=== PATIENT | female | born 1960 | race Caucasian/White ===

== ENCOUNTER 2016-11-29 12:37 | Inpatient (IN) ==
[2016-11-29] MEDS ORDERED: 0.9 % SODIUM CHLORIDE 1,000 ML IV ONE (12:50)
--- NOTE | 2016-11-29 13:42 | Emergency Department Note ---
[id number] pain, abdominal pain, vomiting Time Seen by Provider: 11/29/16 13:29 Source: patient Mode of arrival: ambulatory Limitations: no limitations - History of Present Illness HPI Narrative: 85-year-old female states that since the last 5 days. She's been running a fever. Current temperatures. The 100.7 . Is current. Having cough with some sputum production. She states she gets some aphasia type signs or symptoms. Her throat. She has achalasia. She has some autoimmune diseases. She gets her electrolytes imbalances intermittently - Related Data Home Medications Medication Instructions Recorded Confirmed Pt Forgot Med List 06/12/15 06/12/15 Previous Rx's Medication Instructions Recorded predniSONE [Prednisone] 20 mg PO [facility] #4 tablet 05/18/16 Allergies Allergy/AdvReac Type Severity Reaction Status Date / Time Sulfa (Sulfonamide Allergy Severe Anaphylaxis Verified 11/29/16 12:46 Antibiotics) metoclopramide [From Reglan] AdvReac Mild Anxiety Verified 11/29/16 20:03 steri strips Allergy Severe Blister Uncoded 06/12/15 15:48 Review of Systems All systems ED: reviewed and negative except as stated. Constitutional: Denies: fever, chills Eyes: Denies: eye pain ENT ED: Denies: ear pain Cardiovascular: Reports: chest pain (states she gets heartburn type painfromher achalasia). Denies: palpitations Respiratory: Denies: cough Gastrointestinal: Denies: abdominal pain, vomiting Chest Pain PMH - Past Medical History Medical history: Reports: COPD, other (connective tissue diseases including Sjogren's, sarcoidosis, myasthenia gravis. achalasia) Surgical history ED: Reports: non-contributory - Social History smoking status: Former smoker Alcohol use: Reports: None Drug use: Reports: none Physical Exam - General Limitations: no limitations General appearance: alert - Head Head exam: atraumatic - Eye Eye exam: Present: normal appearance - ENT ENT exam: normal exam - Neck Neck exam: Present: normal inspection, full ROM - Chest Chest inspection: Present: normal inspection - Respiratory Respiratory exam: Present: normal lung sounds bilaterally - Cardiovascular Cardiovascular exam: Present: regular rate, normal rhythm. Absent: bradycardia , tachycardia - Abdominal Exam Abdominal exam: Present: soft. Absent: distention, tenderness - Extremities Exam Extremities exam: Present: normal inspection, full ROM - Back Exam Back exam: Present: normal inspection, full ROM - Neurological Exam Neurological exam: Present: alert, oriented X3, CN II-XII intact - Psychiatric Psychiatric exam: Present: normal affect, normal mood Course Vital Signs Temperature 100.7 F H 11/29/16 12:38 Pulse Rate 139 H 11/29/16 12:38 Respiratory Rate 20 11/29/16 12:38 Blood Pressure 120/85 11/29/16 12:38 Pulse Oximetry (%) 97 11/29/16 12:38 Temperature 102 F H 11/29/16 19:34 Pulse Rate 115 H 11/29/16 19:34 Respiratory Rate 20 11/29/16 19:34 Blood Pressure 120/85 11/29/16 19:34 Pulse Oximetry (%) 94 11/29/16 19:34 Chest Pain - MDM Narrative Medical decision making narrative: xray shows possible infiltrate elevated wbc and lactic - Lab Data Result diagrams: 11/29/16 13:55 11/29/16 13:55 Lab Results 11/29/16 11/29/16 11/29/16 Range/Units 13:55 13:55 13:55 WBC 16.1 H (4.5-11.0) K/mcL RBC 5.03 (4.00-5.20) M/mcL Hgb 14.2 (12.0-15.0) g/dL Hct 44.2 (36.0-48.0) % POC Hct 47.0 (36.0-48.0) % MCV 88.0 (80.0-100.0) fL MCH 28.2 (26.0-34.0) pg MCHC 32.0 (31.0-36.0) g/dL RDW 13.1 (11.5-14.5) % Plt Count 312 (140-440) K/mcL MPV 7.9 (7.4-10.4) fL Gran % 82.6 H (38.0-78.0) % Lymph % (Auto) 10.6 L (15.5-49.0) % Elliott % (Auto) 5.9 (1.0-9.0) % Eos % (Auto) 0.7 (0.0-7.0) % Baso % (Auto) 0.2 (0.0-2.0) % Gran # 13.3 H (1.8-8.0) K/mcL Lymph # 1.7 (1.5-4.8) K/mcL Elliott # 1.0 H (0.1-0.9) K/mcL Eos # 0.1 (0.0-0.7) K/mcL Baso # 0 (0.0-0.3) K/mcL Total Counted Seg Neutrophils % (38-78) % Band Neutrophils % (0-10) % Lymphocytes % (15-49) % Monocytes % (Manual) (1-9) % Platelet Estimate (NORMAL) RBC Morphology (NORMAL) VBG Lactic Acid (0.5-2.2) mmol/L POC Sodium 136 (133-145) mmol/L Sodium 136 (133-145) mmol/L POC Potassium 3.8 (3.3-5.1) mmol/L Potassium 3.9 (3.3-5.1) mmol/L POC Chloride 93 L (96-108) mmol/L Chloride 91 L (96-108) mmol/L Carbon Dioxide 25 (22-30) mmol/L POC Total CO2 28 (22-30) mmol/L Anion Gap 20.0 H (8-16) POC BUN 19 (6-20) mg/dl BUN 17 (6-20) mg/dl Creatinine 0.7 (0.6-1.1) mg/dl POC Creatinine 0.6 (0.6-1.1) mg/dl GFR Calculation 98 Glucose 158 H (70-105) mg/dL POC Glucose 160 H (70-105) mg/dL Calcium 7.8 L (8.6-10.4) mg/dl POC WB Ioniz Calcium 0.84 L (1.16-1.32) mmol/L Magnesium (1.6-2.5) mg/dL Total Bilirubin 0.6 (0.0-1.0) mg/dL AST 18 (0-37) U/l ALT 17 (0-40) U/l Alkaline Phosphatase 69 (39-117) U/L Total Creatine Kinase 40 (24-170) IU/L CK-MB (CK-2) < 1.0 (0-2.9) ng/ml Myoglobin 33 (25-58) ng/ml Troponin T < 0.01 (0-0.03) ng/ml Total Protein 7.4 (5.9-8.4) gm/dL Albumin 3.5 (3.2-5.2) gm/dL Globulin 3.9 H (2.2-3.7) gm/dL Albumin/Globulin Ratio 0.9 L (1.0-2.3) Urine Color Urine Appearance Urine pH (5.0-9.0) Ur Specific [place] (1.000-1.035) Urine Protein (NEG) mg/dL Urine Glucose (UA) (NEG) mg/dL Urine Ketones (NEG) mg/dL Urine Occult Blood (<0.03) mg/dL Urine Nitrate (NEG) Urine Bilirubin (NEG) mg/dL Urine Urobilinogen (NEG) mg/dL Ur Leukocyte Esterase (NEG) /uL Urine RBC (0-1) /hpf Urine WBC (0-4) /hpf Ur Squamous Epith Cells (0-4) /hpf Urine Bacteria (0) /hpf Hyaline Casts (0-2) /lpf Urine Mucus (0) /hpf Ur Culture Indicated? 11/29/16 11/29/16 11/29/16 Range/Units 13:55 13:55 13:55 WBC (4.5-11.0) K/mcL RBC (4.00-5.20) M/mcL Hgb (12.0-15.0) g/dL Hct (36.0-48.0) % POC Hct (36.0-48.0) % MCV (80.0-100.0) fL MCH (26.0-34.0) pg MCHC (31.0-36.0) g/dL RDW (11.5-14.5) % Plt Count (140-440) K/mcL MPV (7.4-10.4) fL Gran % (38.0-78.0) % Lymph % (Auto) (15.5-49.0) % Elliott % (Auto) (1.0-9.0) % Eos % (Auto) (0.0-7.0) % Baso % (Auto) (0.0-2.0) % Gran # (1.8-8.0) K/mcL Lymph # (1.5-4.8) K/mcL Elliott # (0.1-0.9) K/mcL Eos # (0.0-0.7) K/mcL Baso # (0.0-0.3) K/mcL Total Counted 100 Seg Neutrophils % 77 (38-78) % Band Neutrophils % 3 (0-10) % Lymphocytes % 15 (15-49) % Monocytes % (Manual) 5 (1-9) % Platelet Estimate Normal (NORMAL) RBC Morphology Normal (NORMAL) VBG Lactic Acid 3.2 H (0.5-2.2) mmol/L POC Sodium (133-145) mmol/L Sodium (133-145) mmol/L POC Potassium (3.3-5.1) mmol/L Potassium (3.3-5.1) mmol/L POC Chloride (96-108) mmol/L Chloride (96-108) mmol/L Carbon Dioxide (22-30) mmol/L POC Total CO2 (22-30) mmol/L Anion Gap (8-16) POC BUN (6-20) mg/dl BUN (6-20) mg/dl Creatinine (0.6-1.1) mg/dl POC Creatinine (0.6-1.1) mg/dl GFR Calculation Glucose (70-105) mg/dL POC Glucose (70-105) mg/dL Calcium (8.6-10.4) mg/dl POC WB Ioniz Calcium (1.16-1.32) mmol/L Magnesium 1.6 (1.6-2.5) mg/dL Total Bilirubin (0.0-1.0) mg/dL AST (0-37) U/l ALT (0-40) U/l Alkaline Phosphatase (39-117) U/L Total Creatine Kinase (24-170) IU/L CK-MB (CK-2) (0-2.9) ng/ml Myoglobin (25-58) ng/ml Troponin T (0-0.03) ng/ml Total Protein (5.9-8.4) gm/dL Albumin (3.2-5.2) gm/dL Globulin (2.2-3.7) gm/dL Albumin/Globulin Ratio (1.0-2.3) Urine Color Urine Appearance Urine pH (5.0-9.0) Ur Specific [place] (1.000-1.035) Urine Protein (NEG) mg/dL Urine Glucose (UA) (NEG) mg/dL Urine Ketones (NEG) mg/dL Urine Occult Blood (<0.03) mg/dL Urine Nitrate (NEG) Urine Bilirubin (NEG) mg/dL Urine Urobilinogen (NEG) mg/dL Ur Leukocyte Esterase (NEG) /uL Urine RBC (0-1) /hpf Urine WBC (0-4) /hpf Ur Squamous Epith Cells (0-4) /hpf Urine Bacteria (0) /hpf Hyaline Casts (0-2) /lpf Urine Mucus (0) /hpf Ur Culture Indicated? 11/29/16 Range/Units 14:47 WBC (4.5-11.0) K/mcL RBC (4.00-5.20) M/mcL Hgb (12.0-15.0) g/dL Hct (36.0-48.0) % POC Hct (36.0-48.0) % MCV (80.0-100.0) fL MCH (26.0-34.0) pg MCHC (31.0-36.0) g/dL RDW (11.5-14.5) % Plt Count (140-440) K/mcL MPV (7.4-10.4) fL Gran % (38.0-78.0) % Lymph % (Auto) (15.5-49.0) % Elliott % (Auto) (1.0-9.0) % Eos % (Auto) (0.0-7.0) % Baso % (Auto) (0.0-2.0) % Gran # (1.8-8.0) K/mcL Lymph # (1.5-4.8) K/mcL Elliott # (0.1-0.9) K/mcL Eos # (0.0-0.7) K/mcL Baso # (0.0-0.3) K/mcL Total Counted Seg Neutrophils % (38-78) % Band Neutrophils % (0-10) % Lymphocytes % (15-49) % Monocytes % (Manual) (1-9) % Platelet Estimate (NORMAL) RBC Morphology (NORMAL) VBG Lactic Acid (0.5-2.2) mmol/L POC Sodium (133-145) mmol/L Sodium (133-145) mmol/L POC Potassium (3.3-5.1) mmol/L Potassium (3.3-5.1) mmol/L POC Chloride (96-108) mmol/L Chloride (96-108) mmol/L Carbon Dioxide (22-30) mmol/L POC Total CO2 (22-30) mmol/L Anion Gap (8-16) POC BUN (6-20) mg/dl BUN (6-20) mg/dl Creatinine (0.6-1.1) mg/dl POC Creatinine (0.6-1.1) mg/dl GFR Calculation Glucose (70-105) mg/dL POC Glucose (70-105) mg/dL Calcium (8.6-10.4) mg/dl POC WB Ioniz Calcium (1.16-1.32) mmol/L Magnesium (1.6-2.5) mg/dL Total Bilirubin (0.0-1.0) mg/dL AST (0-37) U/l ALT (0-40) U/l Alkaline Phosphatase (39-117) U/L Total Creatine Kinase (24-170) IU/L CK-MB (CK-2) (0-2.9) ng/ml Myoglobin (25-58) ng/ml Troponin T (0-0.03) ng/ml Total Protein (5.9-8.4) gm/dL Albumin (3.2-5.2) gm/dL Globulin (2.2-3.7) gm/dL Albumin/Globulin Ratio (1.0-2.3) Urine Color Yellow Urine Appearance Hazy Urine pH 8.0 (5.0-9.0) Ur Specific [place] 1.021 (1.000-1.035) Urine Protein 30 A (NEG) mg/dL Urine Glucose (UA) Negative (NEG) mg/dL Urine Ketones 5/tr A (NEG) mg/dL Urine Occult Blood Neg (<0.03) mg/dL Urine Nitrate Neg (NEG) Urine Bilirubin Neg (NEG) mg/dL Urine Urobilinogen Neg (NEG) mg/dL Ur Leukocyte Esterase 250 A (NEG) /uL Urine RBC 2 H (0-1) /hpf Urine WBC 23 H (0-4) /hpf Ur Squamous Epith Cells 5 H (0-4) /hpf Urine Bacteria Mod A (0) /hpf Hyaline Casts 1 (0-2) /lpf Urine Mucus Few (0) /hpf Ur Culture Indicated? Yes Disposition Clinical Impression: UTI (urinary tract infection), Infiltrate of lung present on imaging of chest Disposition: Xfer As Inpt ([facility]) Condition: Good
[2016-11-29 14:35] LABS: Basophils # (Auto) 0 K/mcL (0.0-0.3); Basophils % (Auto) 0.2 % (0.0-2.0); Eosinophils # (Auto) 0.1 K/mcL (0.0-0.7); Eosinophils % (Auto) 0.7 % (0.0-7.0); Granulocytes % (Auto) 82.6 % (38.0-78.0); Lymphocytes # (Auto) 1.7 K/mcL (1.5-4.8); Lymphocytes % (Auto) 10.6 % (15.5-49.0); Mean Corpuscular Hemoglobin 28.2 pg (26.0-34.0); Monocytes % (Auto) 5.9 % (1.0-9.0); Platelet Count 312 K/mcL (140-440); RBC 5.03 M/mcL (4.00-5.20); Red Cell Distribution Width 13.1 % (11.5-14.5)
[2016-11-29] MEDS ORDERED: HYDROcodone/APAP 5/325MG TABLET PO ONE (14:50)
[2016-11-29 14:59] LABS: Magnesium 1.6 mg/dL (1.6-2.5)
--- NOTE | 2016-11-29 14:59 | XRay Report ---
HISTORY: Reason for Exam:Chest Pain FINDINGS: There is some pleural thickening of the minor fissure with the nodular density located along the inferior margin of the fissure. This is a chronic stable finding since 05/18/16. Small band of discoid atelectasis has developed above the right diaphragm. There is a thin linear scar above the left diaphragm. The upper lung coronel are clear. The heart size and pulmonary vasculature are normal. No pleural effusion is present. Stomach is distended with gas. IMPRESSION: 5 mm nodule in the right middle lobe abutting the thickened minor fissure. There has been no growth. This is probably a granuloma. New bands of atelectasis in the right lower lobe Interpreted and Authenticated by: Zay Juarez 11/29/16
[2016-11-29 15:14] LABS: ALT/SGPT 17 U/l (0-40); Albumin 3.5 gm/dL (3.2-5.2); Albumin/Globulin Ratio 0.9 (1.0-2.3); Alkaline Phosphatase 69 U/L (39-117); Blood Urea Nitrogen 17 mg/dl (6-20); Creatine Kinase 40 IU/L (24-170); Creatine Kinase MB < 1.0 ng/ml (0-2.9); Myoglobin 33 ng/ml (25-58)
[2016-11-29] MEDS ORDERED: cefTRIAXone 1 GM in DEXTROSE 5% IN WATER 50 ML IV ONE (15:38)
[2016-11-29 15:45] LABS: Appearance,Urine HAZY; Bacteria,Urine MOD /hpf (0); Bilirubin,Urine NEG (NEG); Color,Urine YELLOW; Glucose,Urine (UA) NEGATIVE (NEG); Leukocyte Esterase,Urine 250 /uL (NEG); Mucus,Urine FEW /hpf (0); Nitrate,Urine NEG (NEG); Protein,Urine 30 mg/dL (NEG); Specific Gravity,Urine 1.021 (1.000-1.035); Urine Blood NEG mg/dL (<0.03); Urine Hyaline Cast 1 /lpf (0-2); Urine RBC 2 /hpf (0-1); Urine Squamous Epithelial Cell 5 /hpf (0-4); Urine WBC 23 /hpf (0-4); Urobilinogen,Urine NEG (NEG)
[2016-11-29] MEDS ORDERED: ACETAMINOPHEN 325 MG TABLET PO ONE (16:13)
[2016-11-29 16:23] LABS: Band Neutrophils % 3 % (0-10); Lymphocytes % 15 % (15-49); Monocytes % (Manual) 5 % (1-9); Platelet Estimate NORMAL (NORMAL); RBC Morphology NORMAL (NORMAL); Segmented Neutrophils % 77 % (38-78)
[2016-11-29] MEDS: TRIAMCINOLONE ACETONIDE 40 MG/ML VIAL INTRAARTIC ONE (18:18)
--- NOTE | 2016-11-29 19:11 | Internal Med History&Physical ---
Medical - H&P: HPI Patient information: Note initiated : 11/29/16 at 7:06 pm Service Date, if different from initiated Date: [] Patient: Dayanna Guo a 55 y/o F admitted on for Chest pain, abdominal pain , vomiting. Chief Complaint: [] Chief complaint: Fever, cough, Buring pain in urine. History of present illness: Ms. Guo is a 55 year old female with a complex medical history , on chr prednisone therapy 20mg per day. The patient presents to the ER with complaints of fever, nausea, vomiting, chest pain x 7 days, vomiting has been on and off, for that period, no blood in vomiting. The patient also reports cough, with yellowish sputum, no hemoptysis no aggravating relieving factors. She had increased fatigue. The patient has achalasia and notes chr chest pains spastic secondary to same patient notes that for the last few days she has had burning urination, foul smelling urine, no blood in urine. Patient in the ER had elevated wbc, elevated lactate, high HR, and CXR suggestive of atelectasis. Pt Blood culture, urine culture drawn and patient received rocephin, hospitalist service called in for admission and further management. patient did not bring her medication list, but reported being on prednisone for her autoimmune conditions. Not taken any medicationx x 2 days due to nausea and vomiting. - Constitutional Constitutional: Present: chills, fatigue, fever(s) - EENT Eyes: Absent: blind spots, blurry vision Nose, mouth and throat: Absent: abnormal hearing, bleeding gums - Cardiovascular Cardiovascular: Present: chest pain, chest pain at rest. Absent: palpatations - Respiratory Respiratory: Present: cough, dyspnea, excessive phlegm production, change in phlegm color - Gastrointestinal Gastrointestinal: Present: constipation, nausea, vomiting. Absent: diarrhea - Genitourinary Genitourinary: Present: urinary frequency, urinary incontinence, urinary urgency. Absent: hematuria - Musculoskeletal Musculoskeletal: Present: arthralgias - Integumentary Integumentary: Absent: lesions, new lesions, jaundice - Neurological Neurological: Absent: abnormal gait, focal weakness, syncope, vertigo - Psychiatric Psychiatric: Absent: confusion, depression - Endocrine Endocrine: Absent: polydipsia, polyphagia, polyuria - Hematologic/Lymphatic Hematologic/Lymphatic: Absent: easy bleeding, easy bruising Medical - H&P: PMH Medical history: Medical History Adverse reaction to drug (Acute) Anaphylaxis (Acute) Foot sprain (Acute) autoimmue polyglandular disorder sarcoidosis myasthenia gravis osteoarthrtiris hypothyroidism migraine. Surgical history: cholecystetomy knee surgery thymectomy Pertinent family history: mother father both had CAD Social history: lives with / social etoh denies smoking, very remote history for 2 months. no recreational drugs. Medical - H&P: Meds Home Medications Medication Instructions Recorded Confirmed Type Pt Forgot Med List 06/12/15 06/12/15 History Allergies Allergy/AdvReac Type Severity Reaction Status Date / Time metoclopramide [From Reglan] Allergy Severe Anxiety Verified 06/12/15 15:48 Sulfa (Sulfonamide Allergy Severe Anaphylaxis Verified 11/29/16 12:46 Antibiotics) steri strips Allergy Severe Blister Uncoded 06/12/15 15:48 Medical - H&P: Exam - Constitutional Vitals: Temp Pulse Resp BP Pulse Ox 102 F H 120 H 20 107/63 95 11/29/16 16:27 11/29/16 17:10 11/29/16 12:38 11/29/16 17:10 11/29/16 17:10 General appearance: average body habitus, cooperative, no acute distress, obese - Head Head exam: Present: atraumatic, normal inspection, normocephalic - Eye Eye exam: Present: EOMI, PERRL. Absent: scleral icterus - ENT ENT exam: Present: mucous membranes moist, normal external ear exam - Neck Neck exam: Present: normal inspection - Respiratory Respiratory exam: Present: normal respiratory exam. Absent: accessory muscle use, stridor, wheezes - Cardiovascular Cardiovascular exam: Present: normal rate and rhythm, +S1, +S2, tachycardia - GI/Abdominal GI/Abdominal exam: Present: normal bowel sounds, soft. Absent: guarding, rigid , tenderness - Extremities Exam Extremities exam: Present: Foot pink and warm. Absent: pedal edema, tenderness - Back Exam Back exam: Present: CVA tenderness (L), normal inspection. Absent: CVA tenderness (R), paraspinal tenderness - Neurological Exam Neurological exam: Present: alert, CN II-XII intact, oriented X3. Absent: motor sensory deficit - Psychiatric Psychiatric exam: Absent: agitated, anxious - Skin Skin exam: Present: warm. Absent: rash, urticaria, vesicles Medical - H&P: Reslt - Labs CBC & Chem 7: 11/29/16 13:55 11/29/16 13:55 Labs: Short CBC 11/29/16 Range/Units 13:55 WBC 16.1 H (4.5-11.0) K/mcL Hgb 14.2 (12.0-15.0) g/dL Hct 44.2 (36.0-48.0) % Plt Count 312 (140-440) K/mcL BMP 11/29/16 13:55 Sodium 136 Potassium 3.9 Chloride 91 L Carbon Dioxide 25 BUN 17 Creatinine 0.7 Glucose 158 H Calcium 7.8 L Cardiac Enzymes 11/29/16 11/29/16 Range/Units 13:55 13:55 Total Creatine Kinase 40 (24-170) IU/L CK-MB (CK-2) < 1.0 (0-2.9) ng/ml Troponin T < 0.01 (0-0.03) ng/ml Liver Function 11/29/16 Range/Units 13:55 Total Bilirubin 0.6 (0.0-1.0) mg/dL AST 18 (0-37) U/l ALT 17 (0-40) U/l Alkaline Phosphatase 69 (39-117) U/L Albumin 3.5 (3.2-5.2) gm/dL Urine 11/29/16 Range/Units 14:47 Urine Color Yellow Urine Appearance Hazy Urine pH 8.0 (5.0-9.0) Ur Specific [place] 1.021 (1.000-1.035) Urine Protein 30 A (NEG) mg/dL Urine Glucose (UA) Negative (NEG) mg/dL - EKG Data -: EKG Reviewed by Myself EKG shows normal: sinus rhythm Rate: tachycardia Medical - H&P: A/P (1) Severe sepsis Current visit: Yes Status: Acute (2) Pyelonephritis Current visit: Yes Status: Acute (3) Pneumonia Current visit: Yes Status: Acute (4) Myasthenia gravis Current visit: Yes Status: Acute (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 Admitted to the hospital for severe sepsis, and pyelonephritis/ Possible pna. Sepsis -BP stable, IV fluids for now, HR is improving since presentation. Hemodynamically stable. Cultures drawn, continue IV fluids for now, Treat underlying source. flu in ER was neg Pyelonephritis- left cva tenderness, abnl ua, treat with IV rocephin, await cultures, blood and urine Pneumona- Likely even x ray is neg, not sure if atelectasis is early pna, the patient has productive cough and fever, will add zithromax to the regime. Myasthenia/ Autoimmune disorder- Resume prednisone. Will resume rest of home medications once verified Code full Diet regular DVT - Hep SQ
[2016-11-29] MEDS ORDERED: ACETAMINOPHEN 325 MG TABLET PO PRN (19:32)
[2016-11-29] MEDS ORDERED: BISACODYL 5 MG TABLET PO PRN (19:32)
[2016-11-29] MEDS ORDERED: IPRATROPIUM/ALBUTEROL 3 ML AMPUL.NEB NEB PRN (19:32)
[2016-11-29] MEDS ORDERED: NALOXONE HCL 0.4 MG/ML VIAL IV PRN (19:32)
[2016-11-29] MEDS ORDERED: MAGNESIUM HYDROXIDE 30 ML ORAL.SUSP PO PRN (19:32)
[2016-11-29] MEDS ORDERED: PROMETHAZINE 25 MG/ML VIAL IV PRN (19:32)
[2016-11-29] MEDS ORDERED: cefTRIAXone 1 GM VIAL ONE (20:40)
[2016-11-29] MEDS: HEPARIN 5,000 UNIT/ML VIAL SQ SCH (20:49)
[2016-11-29] MEDS: cefTRIAXone 1 GM in DEXTROSE 5% IN WATER 50 ML IV ONE ×2 (20:49→21:00)
[2016-11-29] MEDS: predniSONE 20 MG TABLET PO SCH (20:51)
[2016-11-29] MEDS: 0.9 % SODIUM CHLORIDE 1,000 ML IV SCH (20:56)
[2016-11-29] MEDS: HYDROcodone/APAP 5/325MG TABLET PO PRN (20:58)
[2016-11-29] MEDS ORDERED: AZITHROMYCIN 500 MG in DEXTROSE 5% IN WATER 250 ML IV ONE (21:00)
[2016-11-29] MEDS: ONDANSETRON 4 MG/2 ML VIAL IV PRN (21:10)
[2016-11-30] MEDS: ONDANSETRON 4 MG/2 ML VIAL IV PRN (02:46)
[2016-11-30 05:21] LABS: Basophils # (Auto) 0 K/mcL (0.0-0.3); Basophils % (Auto) 0.3 % (0.0-2.0); Eosinophils # (Auto) 0.1 K/mcL (0.0-0.7); Eosinophils % (Auto) 0.7 % (0.0-7.0); Granulocytes % (Auto) 83.4 % (38.0-78.0); Lymphocytes # (Auto) 1.1 K/mcL (1.5-4.8); Mean Cell Volume 88.5 fL (80.0-100.0); Mean Corpuscular HGB Conc 32.3 g/dL (31.0-36.0); Mean Corpuscular Hemoglobin 28.6 pg (26.0-34.0); Monocytes # (Auto) 0.2 K/mcL (0.1-0.9); Monocytes % (Auto) 2.6 % (1.0-9.0); Platelet Count 267 K/mcL (140-440); RBC 4.37 M/mcL (4.00-5.20); Red Cell Distribution Width 12.9 % (11.5-14.5)
[2016-11-30] MEDS: 0.9 % SODIUM CHLORIDE 1,000 ML IV SCH ×3 (05:47→14:47)
[2016-11-30 05:58] LABS: ALT/SGPT 14 U/l (0-40); Albumin 3.3 gm/dL (3.2-5.2); Albumin/Globulin Ratio 1.1 (1.0-2.3); Alkaline Phosphatase 64 U/L (39-117); Bilirubin,Direct < 0.2 mg/dL (0.0-0.3); Blood Urea Nitrogen 13 mg/dl (6-20); Gamma Glutamyl Transpeptidase 30 U/L (5-36); Magnesium 1.9 mg/dL (1.6-2.5); Uric Acid 4.3 mg/dL (2.5-8.0)
[2016-11-30] MEDS: TRIAMCINOLONE ACETONIDE 40 MG/ML VIAL INTRAARTIC ONE (07:00)
[2016-11-30] MEDS: PANTOPRAZOLE 40 MG VIAL IV SCH (07:18)
[2016-11-30] MEDS: predniSONE 20 MG TABLET PO SCH (08:20)
[2016-11-30] MEDS ORDERED: traMADol 50 MG TABLET PO PRN (08:25)
--- NOTE | 2016-11-30 08:28 | Internal Med Progress Note ---
Medical - PN: Subj Patient information: Note initiated : 11/30/16 at 8:26 am Service Date, if different from initiated Date: [] Patient: Dayanna Stephens 55 y/o F admitted on 11/29/16 for Chest pain, abdominal pain, vomiting. Chief Complaint: [] Interval history: Patient seen examined, no acute overnight events, doing well she did not sleep well, but otherwise had no complaints, feels she is improving. had fever overnight which responded well to tylenol, HR is in the normal range she does need oxygen, but has some cough Pertinent ROS: Denies headache, dizziness Denies active chest pain, palpitations (intermittent cp from achalasia present) present cough but no shortness of breath Denies abdominal pain, nausea or vomiting. - Constitutional Vitals: Vital Signs Temp Pulse Resp BP Pulse Ox 97.6 F 80 20 126/72 94 11/30/16 03:00 11/30/16 03:00 11/30/16 03:00 11/30/16 03:00 11/30/16 07:30 Period Temp Pulse Resp BP Sys/Archuleta Pulse Ox Last 24 Hr 97.6 F-102 F 80-115 20-20 119-147/69-85 94-94 Intake and Output 11/29/16 11/30/16 11/30/16 21:59 05:59 13:59 Intake Total 2920 / 2920 Output Total 1600 / 1600 900 / 900 Balance 1320 / 1320 -900 / -900 Weight 244 lb 3.2 oz Intake & Output: Intake & Output 11/29/16 11/30/16 11/30/16 21:59 05:59 13:59 Intake Total 2920 / 2920 Output Total 1600 / 1600 900 / 900 Balance 1320 / 1320 -900 / -900 Weight 244 lb 3.2 oz Intake: IV 1000 / 1000 Sodium Chloride 0.9% 1, 1000 / 1000 000 ml @ 125 mls/hr IV . Q8H ON LICENSE OF [facility] Rx#:[id number] Oral 1920 / 1920 Output: Void Amount 550 / 550 Urine/Stool Mix 700 / 700 900 / 900 Emesis 350 / 350 Exam: Constitutional; Afebrile, cooperative, alert, not in distress. Eyes- No icterus, No periorbital swelling Ears- Ext ear normal, hearing normal to conversation. Neck- Midline trachea, supple Respiratory system: Air Entry equal on both sides, No crackles or wheezing, no rhonchi. CVS- Rate rhythm regular, S1,S2 heard, no gallop, no rub. Abdomen- Soft nontender abdomen, no organomegaly, no tenderness, no guarding or rigidity, GASFITTER- AOOx3, moving all extremities, no focal deficit noted. Medical - PN: Obj Da - Labs CBC & Chem 7: 11/30/16 03:40 11/30/16 03:40 Labs: Abnormal Lab Results 11/30/16 11/30/16 03:40 03:40 Gran % 83.4 H Lymph % (Auto) 13.0 L Lymph # 1.1 L Glucose 191 H Calcium 7.4 L Triglycerides 258 H Meds: Medications Acetaminophen (Tylenol) 650 mg PO Q6HP PRN PRN Reason: PAIN/FEVER > 101 Acetaminophen/Hydrocodone Bitart ([place] 5/325mg) 1 tab PO Q4HP PRN PRN Reason: Pain Last Admin: 11/29/16 20:58 Dose: 1 tab Albuterol/Ipratropium (Duoneb) 3 ml NEB Q6HRT PRN PRN Reason: Shortness Of Breath Or Wheezing Stop: 12/05/16 18:58 Bisacodyl (Dulcolax) 10 mg PO DAILYP PRN PRN Reason: Constipation Heparin Sodium (Porcine) (Heparin) 5,000 unit SQ Q12 ON LICENSE OF [facility] Last Admin: 11/29/16 20:49 Dose: 5,000 unit Azithromycin 250 mg/ Dextrose 250 mls @ 250 mls/hr IV DAILY ON LICENSE OF [facility] Stop: 12/03/16 09:59 Sodium Chloride (Sodium Chloride 0.9%) 1,000 mls @ 125 mls/hr IV .Q8H ON LICENSE OF [facility] Stop: 11/30/16 19:31 Last Admin: 11/30/16 05:47 Dose: 125 mls/hr Ceftriaxone Sodium 2 gm/ (Dextrose) 50 mls @ 100 mls/hr IV DAILY ON LICENSE OF [facility] Magnesium Hydroxide (Milk Of Magnesia) 30 ml PO DAILYP PRN PRN Reason: Constipation Naloxone HCl (Narcan) 0.1 mg IV Q2MIN PRN PRN Reason: Opiate Reversal Ondansetron HCl (Zofran) 4 mg IV Q4HP PRN PRN Reason: Nausea And Vomiting Last Admin: 11/30/16 02:46 Dose: 4 mg Pantoprazole Sodium (Protonix) 40 mg IV [facility] Last Admin: 11/30/16 07:18 Dose: 40 mg Prednisone (Prednisone) 20 mg PO [facility] Last Admin: 11/30/16 08:20 Dose: 20 mg Promethazine HCl (Phenergan) 12.5 mg IV Q6HP PRN PRN Reason: Nausea And Vomiting Last Admin: 11/29/16 23:02 Dose: 12.5 mg Medical - PN: A/P - Time Spent With Patient Total time spent is greater than 50% in coordination of care (as documented) at patient's floor/unit and/or counseling patient: (1) Severe sepsis Status: Acute Current Visit: Yes (2) Pyelonephritis Status: Acute Current Visit: Yes (3) Pneumonia Status: Acute Current Visit: Yes (4) Myasthenia gravis Status: Acute Current Visit: Yes (5) Polyglandular autoimmune syndrome Status: Acute Current Visit: Yes (6) Sarcoidosis Status: Acute Current Visit: Yes (7) Achalasia and cardiospasm Status: Acute Current Visit: Yes (8) Hypothyroidism Status: Acute Current Visit: Yes - Narrative A/P Narrative: The patient is clinically improving labs better continue IV rocephin await cultures Home meds verified and resumed as appropriate. Medical - PN: Qual - VTE Deep Vein Thrombosis/Pulmonary Embolism Present on Admission: No
[2016-11-30] MEDS ORDERED: NON FORMULARY MEDICATION 1 DOSE MISCELL (Omeprazole 20 MG) PO SCH (09:00)
[2016-11-30] MEDS: CALCITRIOL 0.25 MCG CAPSULE PO SCH ×3 (09:26→20:39)
[2016-11-30] MEDS: DULoxetine 30 MG CAPSULE PO SCH ×2 (09:26→20:39)
[2016-11-30] MEDS: LEVOTHYROXINE 100 MCG TABLET PO SCH (09:26)
[2016-11-30] MEDS: LEVOTHYROXINE 25 MCG TABLET PO SCH (09:27)
[2016-11-30] MEDS: HEPARIN 5,000 UNIT/ML VIAL SQ SCH ×2 (09:27→20:40)
[2016-11-30] MEDS: LINACLOTIDE 145 MG PO SCH ×2 (09:34→20:37)
[2016-11-30] MEDS: guaiFENesin/DEXTROMETHORPHAN ORAL SOL PO PRN ×3 (10:57→20:44)
[2016-11-30] MEDS: cefTRIAXone 2 GM in DEXTROSE 5% IN WATER 50 ML IV SCH (11:50)
[2016-11-30] MEDS: AZITHROMYCIN 250 MG in DEXTROSE 5% IN WATER 250 ML IV SCH (13:21)
[2016-11-30] MEDS: HYDROcodone/APAP 5/325MG TABLET PO PRN ×2 (14:04→20:38)
[2016-12-01] MEDS: guaiFENesin/DEXTROMETHORPHAN ORAL SOL PO PRN ×3 (02:24→11:16)
[2016-12-01 05:39] LABS: Basophils # (Auto) 0 K/mcL (0.0-0.3); Basophils % (Auto) 0.3 % (0.0-2.0); Eosinophils # (Auto) 0.1 K/mcL (0.0-0.7); Eosinophils % (Auto) 1.5 % (0.0-7.0); Granulocytes % (Auto) 61.1 % (38.0-78.0); Lymphocytes # (Auto) 2.7 K/mcL (1.5-4.8); Lymphocytes % (Auto) 28.5 % (15.5-49.0); Mean Cell Volume 88.8 fL (80.0-100.0); Mean Corpuscular HGB Conc 32.8 g/dL (31.0-36.0); Mean Corpuscular Hemoglobin 29.1 pg (26.0-34.0); Monocytes # (Auto) 0.8 K/mcL (0.1-0.9); Monocytes % (Auto) 8.6 % (1.0-9.0); Platelet Count 249 K/mcL (140-440); RBC 3.77 M/mcL (4.00-5.20); Red Cell Distribution Width 13.3 % (11.5-14.5)
[2016-12-01 05:56] LABS: ALT/SGPT 11 U/l (0-40); Albumin 3.1 gm/dL (3.2-5.2); Albumin/Globulin Ratio 1.1 (1.0-2.3); Alkaline Phosphatase 57 U/L (39-117); Bilirubin,Direct < 0.2 mg/dL (0.0-0.3); Blood Urea Nitrogen 12 mg/dl (6-20); Gamma Glutamyl Transpeptidase 25 U/L (5-36); Magnesium 1.7 mg/dL (1.6-2.5); Phosphorous 4.7 mg/dL (2.7-4.5); Uric Acid 4.3 mg/dL (2.5-8.0)
[2016-12-01] MEDS: LEVOTHYROXINE 100 MCG TABLET PO SCH (07:31)
[2016-12-01] MEDS: LEVOTHYROXINE 25 MCG TABLET PO SCH (07:31)
[2016-12-01] MEDS: PANTOPRAZOLE 40 MG VIAL IV SCH (07:32)
[2016-12-01] MEDS: HYDROcodone/APAP 5/325MG TABLET PO PRN (07:44)
[2016-12-01] MEDS: ONDANSETRON 4 MG/2 ML VIAL IV PRN (07:44)
[2016-12-01] MEDS: DULoxetine 30 MG CAPSULE PO SCH (08:50)
[2016-12-01] MEDS: HEPARIN 5,000 UNIT/ML VIAL SQ SCH (08:50)
[2016-12-01] MEDS: predniSONE 20 MG TABLET PO SCH (08:50)
[2016-12-01] MEDS: cefTRIAXone 2 GM in DEXTROSE 5% IN WATER 50 ML IV SCH (08:50)
[2016-12-01] MEDS: CALCITRIOL 0.25 MCG CAPSULE PO SCH (08:50)
[2016-12-01] MEDS: LINACLOTIDE 145 MG PO SCH (08:53)
[2016-12-01] MEDS ORDERED: CALCIUM GLUCONATE 4.65 MEQ/10 ML VIAL IV ONE (09:17)
[2016-12-01] MEDS ORDERED: CALCIUM GLUCONATE 4.65 MEQ in DEXTROSE 5% IN WATER 50 ML IV ONE (09:30)
[2016-12-01] MEDS: AZITHROMYCIN 250 MG in DEXTROSE 5% IN WATER 250 ML IV SCH (10:05)
[2016-12-01 10:59] LABS: Parathyroid Hormone Intact 1.2 pg/ml (15-65); Vitamin D 25 Hydroxy 24.12 ng/mL (>=30)
--- NOTE | 2016-12-01 11:24 | Discharge Summary ---
Medical - DS: Prov Patient information: Note initiated : 12/01/16 at 11:21 am Service Date, if different from initiated Date: [] Patient: Dayanna Stephens 55 y/o F admitted on 11/29/16 for Severe Sepsis, Pyelonephritis, Possible Pneumonia. Chief Complaint: [] Date of admission: 11/29/16 19:25 Discharge date: 12/01/16 Primary care physician: [f_Reg Prim Care Provider] Admitting clinician: Reyna Tucker Discharging clinician: Reyna Tucker Medical - DS: Meds - Discharge Medications Prescriptions: Cephalexin [Keflex] 500 mg PO QID #48 capsule Active and Home Medications: Home Medications RX: predniSONE [Prednisone] 20 mg PO [facility] #4 tablet 05/18/16 [Rx Confirmed Last Taken 11/27/16 09:00 20 mg] Calcitriol 0.25 mcg PO TID 11/30/16 [History Confirmed 11/30/16 Last Taken 11/27 0.25 MCG] Levothyroxine Sodium [Synthroid] 200 mcg PO DAILY 11/30/16 [History Confirmed Last Taken 11/27/16 07:00 200 MCG] Linaclotide [Linzess] 145 mg PO DAILY 11/30/16 [History Confirmed 11/30/16 Last Taken 11/27/16 09:00 145 MG] Nitroglycerin 0.4 mg PO PRN PRN 11/30/16 [History Confirmed 11/30/16 Last Taken 11/28/16 10:45 0.4 MG] Omeprazole 20 mg PO BID 11/30/16 [History Confirmed 11/30/16 Last Taken 09:00 20 MG] RX: DULoxetine [Cymbalta] 30 mg PO BID 11/30/16 [History Confirmed 11/30/16 Last Taken 11/27/16 21:00 30MG] RX: Levothyroxine [Synthroid] 25 mcg PO DAILY 11/30/16 [History Confirmed Last Taken 11/27/16 09:00 25] RX: traMADol [Ultram] 100 mg PO Q6HP PRN 11/30/16 [History Confirmed 11/30/16 Last Taken 11/27/16] Medical - DS: Hosp Hospital course: Mr. Stephens is a 55 year old female who presented to the clinic with complaints of not feeling well, fever nausea and vomting with cough. The patient had a neg x ray chest ,but ua positive for UTI and flank tenderness , was admitted to the hospital for management of severe sepsis and pyelonephritis. The patient was treated with broad spectrum antibiotics, rocepin and zithromax. The patient responded to the treatment very well. Her blood cultures are negative, and her urine cultures are growing hewitt sensitive Ecoli. Given that she has had left cva tenderness. I will treat her as pyelo with total of 14 days of antibiotics. She will complete keflex for another 12 days. 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 Today Lyle was 6.7, lyle gluconate given , no clinical signs of hypocalcemia. She is not receiving her liquid calcium while inpt. She needs to follow up with her network systems integrator for further management of her hypocalcemia. Her vit d level was 245, PT was 1.4 very low. Mg normal, P hos 4.7. The rest of the patients medical condition in the hospital remained stable. On discharge the patient is tolerating po well, ambulatory, speaking full sentences and wishes to go home. will d/c home and advise to follow up with PCP in 7 days for close monitoring of calicum level.s Discharge diagnosis: UTI/ Pylenephritis. - Time Spent with Patient Total time spent providing and/or coordinating discharge services: Greater than 30 minutes Medical - DS: Exam - Constitutional Vitals: Vital Signs Temp Pulse Resp BP BP Pulse Ox 12/01/16 08:00 97.9 F 76 121/79 98 12/01/16 06:47 97 12/01/16 04:00 97.8 F 18 134/83 97 12/01/16 00:00 97.7 F 82 18 116/86 97 11/30/16 20:00 98.6 F 87 18 121/77 95 11/30/16 16:00 97.9 F 89 20 121/73 96 11/30/16 12:00 98.2 F 101 H 18 123/73 93 Intake and Output 11/30/16 12/01/16 12/01/16 21:59 05:59 13:59 Intake Total 3050 / 3050 2440 / 2440 480 / 480 Output Total 3650 / 3650 1200 / 1200 Balance -600 / -600 1240 / 1240 480 / 480 Intake: IV 1300 / 1300 1000 / 1000 360 / 360 Sodium Chloride 0.9% 1, 1000 / 1000 1000 / 1000 000 ml @ 125 mls/hr IV . Q8H MALENA Rx#:[id number] Dextrose 5% in Water 250 250 / 250 250 / 250 ml @ 250 mls/hr IV DAILY MALENA with Zithromax 250 mg Rx#:[id number] Dextrose 5% in Water 50 60 / 60 ml @ 180 mls/hr IV ONCE ONE with Calcium Gluconate 4.65 Meq Rx#: [id number] Dextrose 5% in Water 50 50 / 50 50 / 50 ml @ 100 mls/hr IV DAILY MALENA with Rocephin 2 gm Rx #:[id number] Oral 1750 / 1750 960 / 960 120 / 120 GI Tube Flush 480 / 480 Output: Void Amount 725 / 725 1200 / 1200 Urine/Stool Mix 2925 / 2925 Other: Meal Dinner snack per patient request Breakfast Percent of Meal Consumed 75% 100% 25% Feeding Ability Independent Independent Independent Weight 244 lb 4.8 oz Additional comments: Constitutional; Afebrile, cooperative, alert, not in distress. Eyes- No icterus, Pupils equal, reactive, No periorbital swelling Ears- Ext ear normal, hearing normal to conversation. Neck- Midline trachea, supple Respiratory system: Air Entry equal on both sides, No crackles or wheezing, no rhonchi. CVS- Rate rhythm regular, S1,S2 heard, no gallop, no rub. Abdomen- Soft nontender abdomen, no organomegaly, no tenderness, no guarding or rigidity, [employer]- AOOx3, moving all extremities, no focal deficit noted. Medical - DS: Data Labs on day of discharge: Labs from last 24 hours 12/01/16 12/01/16 12/01/16 09:30 04:00 03:53 WBC 9.5 RBC 3.77 L Hgb 11.0 L Hct 33.5 L MCV 88.8 MCH 29.1 MCHC 32.8 RDW 13.3 Plt Count 249 MPV 8.0 Gran % 61.1 Lymph % (Auto) 28.5 [place] % (Auto) 8.6 Eos % (Auto) 1.5 Baso % (Auto) 0.3 Gran # 5.8 Lymph # 2.7 [place] # 0.8 Eos # 0.1 Baso # 0 Sodium 140 Potassium 3.6 Chloride 104 Carbon Dioxide 22 Anion Gap 14.0 BUN 12 Creatinine 0.6 GFR Calculation 103 Glucose 147 H Uric Acid 4.3 Calcium 6.7 L Phosphorus 4.7 H Magnesium 1.7 Total Bilirubin 0.2 Direct Bilirubin < 0.2 GGT 25 AST 11 ALT 11 Alkaline Phosphatase 57 Lactate Dehydrogenase 286 H Total Protein 6.0 Albumin 3.1 L Globulin 2.9 Albumin/Globulin Ratio 1.1 Triglycerides 269 H 25-OH Vitamin D Total 24.12 L PTH Intact 1.2 L Medical - DS: A/P - Patient/Caregiver Discharge Instructions Activity: increase activity as tolerated Diet: Regular Diet Additional Instructions: Take your calcium supplement on a regular basisi Follow up with your pcp in 7 days go to the Er if any muscle spasms, palpitations, chest pains, recurrent fever and nause or vomiting. - Problem Maintenance (1) Severe sepsis Status: Acute (2) Pyelonephritis Status: Acute (3) Pneumonia Status: Acute (4) Myasthenia gravis Status: Acute (5) Polyglandular autoimmune syndrome Status: Acute (6) Sarcoidosis Status: Acute (7) Achalasia and cardiospasm Status: Acute (8) Hypothyroidism Status: Acute - Follow up Plan Follow up with: Douglas Haque MD [Primary Care Provider] - Disposition: Home, Self-Care Prognosis: Fair Rehab Potential: Fair I certify that the patient requires SNF services: No Overall status at discharge: patient is progressing back to baseline Medical - DS: Qual - VTE Deep Vein Thrombosis/Pulmonary Embolism Present on Admission: No
[2016-12-01] MEDS ORDERED: FLU VACC QS2016-17 36MOS UP/PF 60 MCG/0.5 ML SYRINGE IM ONE (12:00)
== END 2016-12-01 12:40 | disposition home or self-care (01) | DRG 871 ==
LOC: ED 12:37 → ICU 19:25 → MEDSUR 11-30 16:23 → ICU 11-30 16:24
PROVIDERS: ADMIT Internal Medicine; ATTEND Internal Medicine

== ENCOUNTER 2017-08-18 10:25 | Inpatient (IN) ==
[2017-08-18] MEDS ORDERED: IOPAMIDOL 100 ML BOTTLE IV ONE (10:26)
[2017-08-18] MEDS ORDERED: ONDANSETRON 4 MG/2 ML VIAL IV ONE ×2 (10:44→13:43)
[2017-08-18] MEDS ORDERED: 0.9 % SODIUM CHLORIDE 1,000 ML IV ONE (10:44)
--- NOTE | 2017-08-18 10:44 | Emergency Department Note ---
Abdominal Pain HPI - General Chief Complaint: Abdominal Pain Stated Complaint: abd pain today Time Seen by Provider: 08/18/17 10:41 Source: patient, family Mode of arrival: wheelchair Limitations: no limitations - History of Present Illness HPI Narrative: This patient awoke this morning at 7 AM with some generalized abdominal discomfort. She has had trouble with both ileus and partial small bowel obstruction in the past. She did have bowel movements yesterday and one today with little diarrhea. She does have slight nausea and vomiting. Her pain is quite diffuse and crampy. - Related Data Home Medications Medication Instructions Recorded Confirmed Calcitriol 0.25 mcg PO TID 11/30/16 11/30/16 DULoxetine [Cymbalta] 30 mg PO BID 11/30/16 11/30/16 Levothyroxine Sodium [Synthroid] 200 mcg PO DAILY 11/30/16 11/30/16 Levothyroxine [Synthroid] 25 mcg PO DAILY 11/30/16 11/30/16 Linaclotide [Linzess] 145 mg PO DAILY 11/30/16 11/30/16 Nitroglycerin 0.4 mg PO PRN PRN 11/30/16 11/30/16 Omeprazole 20 mg PO BID 11/30/16 11/30/16 Previous Rx's Medication Instructions Recorded predniSONE [Prednisone] 20 mg PO [facility] #4 tablet 05/18/16 Allergies Allergy/AdvReac Type Severity Reaction Status Date / Time Sulfa (Sulfonamide Allergy Severe Anaphylaxis Verified 11/29/16 12:46 Antibiotics) metoclopramide [From Reglan] AdvReac Mild Anxiety Verified 11/29/16 20:03 steri strips Allergy Severe Blister Uncoded 06/12/15 15:48 Review of Systems All systems ED: reviewed and negative except as stated. Abdominal Pain PMH - Past Medical History PMFSH Narrative: Medical History Foot sprain (Acute) Anaphylaxis (Acute) Adverse reaction to drug (Acute) Severe sepsis (Acute) Pyelonephritis (Acute) Pneumonia (Acute) Myasthenia gravis (Acute) Polyglandular autoimmune syndrome (Acute) Sarcoidosis (Acute) Achalasia and cardiospasm (Acute) Hypothyroidism (Acute) UTI (urinary tract infection) (Acute) Infiltrate of lung present on imaging of chest (Acute) Small bowel obstruction, partial (Acute) Pancreatitis (Acute) Myasthenia gravis (Acute) Volume depletion (Acute) Medical history: Reports: COPD, other (connective tissue diseases including Sjogren's, sarcoidosis, myasthenia gravis. achalasia) Family history: Reports: non-contributory - Social History Smoking status: Former smoker Alcohol use: Reports: None Drug use: Reports: none Physical Exam Limitations: no limitations General appearance: alert, in no apparent distress Head: atraumatic, normocephalic Eye: Present: normal appearance ENT: normal exam Neck: Present: normal inspection Chest: Present: normal inspection Respiratory: Present: normal lung sounds bilaterally Cardiovascular: Present: regular rate, normal rhythm, normal heart sounds Abdominal: Present: soft, distention, tenderness, diminished bowel sounds. Absent: guarding, rebound, rigidity Abdominal tenderness: Present: diffuse, mild Neurological: Present: alert, oriented X3 Psychiatric: Present: normal affect, normal mood Skin: Present: warm, dry, intact, normal color Course Vital Signs Temperature 94.8 F L 08/18/17 10:26 Pulse Rate 126 H 08/18/17 10:26 Respiratory Rate 20 08/18/17 10:26 Blood Pressure 138/100 08/18/17 10:26 Pulse Oximetry (%) 98 08/18/17 10:26 Temperature 94.8 F L 08/18/17 10:26 Pulse Rate 97 H 08/18/17 13:01 Respiratory Rate 23 H 08/18/17 13:01 Blood Pressure 176/105 08/18/17 13:01 Pulse Oximetry (%) 95 08/18/17 13:01 Abdominal Pain - [facility] Narrative Medical decision making narrative: This patient has a partial small bowel obstruction and will be admitted to the hospital by Dr. Currie. - Lab Data Lab results reviewed: Yes I reviewed the patient's lab results. Result diagrams: 08/18/17 10:49 08/18/17 10:49 Lab Results 08/18/17 08/18/17 Range/Units 10:49 10:49 WBC 13.9 H (4.5-11.0) K/mcL RBC 5.28 H (4.00-5.20) M/mcL Hgb 15.3 H (12.0-15.0) g/dL Hct 46.3 (36.0-48.0) % MCV 87.8 (80.0-100.0) fL MCH 28.9 (26.0-34.0) pg MCHC 33.0 (31.0-36.0) g/dL RDW 13.8 (11.5-14.5) % Plt Count 330 (140-440) K/mcL MPV 8.2 (7.4-10.4) fL Gran % 66.0 (38.0-78.0) % Lymph % (Auto) 23.1 (15.5-49.0) % [place] % (Auto) 7.7 (1.0-12.0) % Eos % (Auto) 2.8 (0.0-7.0) % Baso % (Auto) 0.4 (0.0-2.0) % Gran # 9.1 H (1.8-8.0) K/mcL Lymph # (Auto) 3.2 (1.5-4.8) K/mcL [place] # (Auto) 1.1 H (0.1-0.9) K/mcL Eos # (Auto) 0.4 (0.0-0.7) K/mcL Baso # (Auto) 0.1 (0.0-0.3) K/mcL Sodium 136 (133-145) mmol/L Potassium 3.7 (3.3-5.1) mmol/L Chloride 91 L (96-108) mmol/L Carbon Dioxide 25 (22-30) mmol/L Anion Gap 20.0 H (8-16) BUN 19 (6-20) mg/dl Creatinine 0.9 (0.6-1.1) mg/dl GFR Calculation 72 Glucose 194 H (70-105) mg/dL Calcium 8.5 L (8.6-10.4) mg/dl Total Bilirubin 0.3 (0.0-1.0) mg/dL AST 13 (0-37) U/l ALT 16 (0-40) U/l Alkaline Phosphatase 68 (39-117) U/L Total Protein 7.9 (5.9-8.4) gm/dL Albumin 4.1 (3.2-5.2) gm/dL Globulin 3.8 H (2.2-3.7) gm/dL Albumin/Globulin Ratio 1.1 (1.0-2.3) Disposition Pt seen by CONDOMINIUM PROPERTY MANAGER/PA only: No Clinical Impression: Small bowel obstruction, partial Disposition: Xfer As Inpt ([facility]) Condition: Good Referrals: Douglas Haque MD [Primary Care Provider] - Time of Disposition: 13:14
[2017-08-18] MEDS: HYDROmorphone 2 MG/ML SYRINGE IV PRN ×5 (10:52→22:40)
[2017-08-18 11:27] LABS: Basophils # (Auto) 0.1 K/mcL (0.0-0.3); Basophils % (Auto) 0.4 % (0.0-2.0); Eosinophils # (Auto) 0.4 K/mcL (0.0-0.7); Eosinophils % (Auto) 2.8 % (0.0-7.0); Lymphocytes # (Auto) 3.2 K/mcL (1.5-4.8); Lymphocytes % (Auto) 23.1 % (15.5-49.0); Mean Cell Volume 87.8 fL (80.0-100.0); Mean Corpuscular Hemoglobin 28.9 pg (26.0-34.0); Monocytes # (Auto) 1.1 K/mcL (0.1-0.9); Monocytes % (Auto) 7.7 % (1.0-12.0); Platelet Count 330 K/mcL (140-440); RBC 5.28 M/mcL (4.00-5.20); Red Cell Distribution Width 13.8 % (11.5-14.5)
[2017-08-18 11:49] LABS: ALT/SGPT 16 U/l (0-40); Albumin 4.1 gm/dL (3.2-5.2); Albumin/Globulin Ratio 1.1 (1.0-2.3); Alkaline Phosphatase 68 U/L (39-117); Blood Urea Nitrogen 19 mg/dl (6-20)
[2017-08-18] MEDS ORDERED: LIDOCAINE JEL 2% 1 TUBE 30GM TOPICAL ONE ×2 (13:25→13:51)
[2017-08-18 13:31] LABS: Lipase 17 U/L (7-60)
[2017-08-18] MEDS ORDERED: ONDANSETRON 4 MG/2 ML VIAL ONE (13:52)
[2017-08-18] MEDS ORDERED: METOPROLOL TARTRATE 5 MG/5 ML VIAL IV ONE (14:42)
--- NOTE | 2017-08-18 16:25 | General Surg History&Physical ---
History of Present Illness Patient information: Note initiated : 08/18/17 at 4:18 pm Service Date, if different from initiated Date: [] Patient: Dayanna Stephens a 56 y/o F admitted on 08/18/17 for abd pain today. Chief Complaint: [] HPI: Ms. Stephens is a 56 year old F who was admitted with partial intestinal obstruction manifested by dilated small bowel and colon. The patient awakened about 7 AM today with abdominal bloating, profuse sweating, nausea and vomiting. She has severe abdominal pain. She states that she had 2 bowel movements yesterday and one bowel movement this morning. She also has some flatus this morning. She had a similar episode in June of this year which resolved spontaneously with bowel rest. She takes codeine on a daily basis and usually takes 4 tablets per day every day. History suggests narcotic induced adynamic ileus but still must consider distal colonic obstruction also. Review of Systems - Constitutional fatigue, headache(s), malaise, weakness, weight gain - EENT Nose, mouth and throat: headache(s) - Cardiovascular chest pain at rest, dyspnea on exertion, palpatations, rapid heart rate - Respiratory dyspnea on exertion - Gastrointestinal abdominal pain, bloating, change in bowel habits, constipation, cramping, dyspepsia, heartburn, nausea, vomiting - Genitourinary Genitourinary: urinary frequency, urinary incontinence, urinary urgency - Musculoskeletal arthralgias, stiffness - Integumentary no bleeding lesions, no changing lesions, no new lesions - Neurological headache(s), no dizziness, no memory loss, no tremor(s) - Psychiatric change in appetite, depression - Endocrine fatigue, heat intolerance - Hematologic/Lymphatic no easy bleeding, no easy bruising, no lymphadenopathy - Allergic/Immunologic no tongue swelling, no throat swelling, no uticaria, no wheezing, no lip swelling Past History Past medical history: Sjogren's syndrome Chronic obstructive lung disease Sarcoidosis Myasthenia gravis Severe achalasia--treated improved Osteoarthritis Hypothyroidism Past surgical history: Cholecystectomy Left knee meniscectomy Thymectomy Heller myotomy with Toupe fundoplication Umbilical hernia repair Past family history: Mother coronary artery disease Father coronary artery disease Past social history: Former smoker Social drinker Denies drug use Medications and Allergies Home Medications Medication Instructions Recorded Confirmed Type predniSONE [Prednisone] 20 mg PO [facility] #4 tablet 05/18/16 11/30/16 Rx Calcitriol 0.25 mcg PO TID 11/30/16 11/30/16 History DULoxetine [Cymbalta] 30 mg PO BID 11/30/16 11/30/16 History Levothyroxine Sodium [Synthroid] 200 mcg PO DAILY 11/30/16 11/30/16 History Levothyroxine [Synthroid] 25 mcg PO DAILY 11/30/16 11/30/16 History Linaclotide [Linzess] 145 mg PO DAILY 11/30/16 11/30/16 History Nitroglycerin 0.4 mg PO PRN PRN 11/30/16 11/30/16 History Omeprazole 20 mg PO BID 11/30/16 11/30/16 History Allergies Allergy/AdvReac Type Severity Reaction Status Date / Time Sulfa (Sulfonamide Allergy Severe Anaphylaxis Verified 11/29/16 12:46 Antibiotics) metoclopramide [From Reglan] AdvReac Mild Anxiety Verified 11/29/16 20:03 steri strips Allergy Severe Blister Uncoded 06/12/15 15:48 Exam Temp Pulse Resp BP Pulse Ox 97.4 F 83 16 154/104 97 08/18/17 16:00 08/18/17 16:00 08/18/17 16:00 08/18/17 16:00 08/18/17 16:00 - General physical appearance well developed, well nourished, moderate distress, moderate pain, obese - Eyes PERRL, normal ocular movement, other (Bilateral miotic pupil). negative: icteric - ENT normal pinna, normal nares, normal mucosa, no hearing loss, no congestion - Head Head exam IM: Present: atraumatic, normal inspection, normocephalic - Neck no masses, no bruits, trachea midline, no lymphadectomy, no venous distension - Cardiovascular Cardiovascular exam IM: Present: normal rate and rhythm, RRR, +S1, +S2. Absent : JVD - Respiratory normal expansion, normal respiratory effort, clear to percussion, clear to auscultation - Abdomen Abdomen: Present: soft, non tender, bowel sounds, distended (Distended with more distention and upper abdomen and decompressed lower abdomen; tenderness across upper abdomen with hyperactive bowel sounds; tenderness of umbilicus) Hernia: Present: none - Genitourinary Present: normal external genitalia - Integumentary Present: no rash, no growths, no abnormal pigmentation - Neurologic Present: normal coordination, normal sensation - Musculoskeletal Present: normal gait, normal posture - Psychiatric Present: oriented to time, oriented to person, oriented to place, speech is normal, memory intact Assessment and Plan (1) Partial intestinal obstruction, unspecified as to cause Nasogastric decompression Follow-up x-rays in the morning Status: Acute (2) Constipation due to pain medication therapy Relistor 12 mg subcu daily 3 days Status: Acute (3) Myasthenia gravis Resume home medications as soon as possible Status: Acute (4) Polyglandular autoimmune syndrome Status: Acute (5) Sarcoidosis Status: Acute (6) Achalasia and cardiospasm Pantoprazole 40 mg IV every 12 hours Status: Acute (7) Hypothyroidism Check T3 and T4 and TSH Give IV levothyroxine if unable to take p.o. after 48 hours Status: Acute (8) Myasthenia gravis Status: Acute
[2017-08-18] MEDS ORDERED: PROMETHAZINE 25 MG/ML VIAL IV PRN (16:42)
[2017-08-18] MEDS ORDERED: ONDANSETRON 4 MG/2 ML VIAL IV PRN (16:42)
[2017-08-18] MEDS ORDERED: PANTOPRAZOLE 40 MG VIAL IV SCH (17:00)
[2017-08-18] MEDS: 0.9 % SODIUM CHLORIDE 1,000 ML IV SCH (17:05)
[2017-08-18] MEDS ORDERED: HYDROmorphone 2 MG/ML SYRINGE ONE (17:25)
[2017-08-18] MEDS ORDERED: PROMETHAZINE 25 MG/ML VIAL ONE (17:26)
[2017-08-18] MEDS ORDERED: METHYLNALTREXONE BROMIDE 12 MG/0.6 ML SYRINGE SQ SCH (18:00)
--- NOTE | 2017-08-18 18:22 | XRay Report ---
CLINICAL INFORMATION: Abdominal pain COMPARISON: 07/07/2017 FINDINGS: The stomach, duodenum and the entire jejunum are markedly dilated with marked decompression of the ileum and colon. Findings are compatible with high-grade distal jejunal obstruction. No free air, soft tissue mass or organomegaly or pathologic calcification IMPRESSION: High-grade small bowel obstruction - distal jejunal level Interpreted and Authenticated by: All Lundberg 08/18/17
--- NOTE | 2017-08-18 18:28 | XRay Report ---
CLINICAL INFORMATION: High-grade distal jejunal obstruction. NG tube placement COMPARISON: 08/18/2017 FINDINGS: NG tip overlies the gastric antrum. Stomach and duodenum appears decompressed. There are multiple loops of jejunum which are moderately dilated compatible with high-grade distal jejunal obstruction. The ileum and colon are decompressed. No free air IMPRESSION: NG tube in satisfactory position. There is been interval decompression of the stomach and duodenum. Moderate dilatation of the jejunal loops compatible with high-grade distal jejunal obstruction seen - as before Interpreted and Authenticated by: All Lundberg 08/18/17
--- NOTE | 2017-08-18 19:13 | Cat Scan Report ---
CLINICAL INFORMATION: Abdominal pain and distention. Evaluate for recurrent small bowel obstruction COMPARISON: 07/05/[address] TECHNIQUE: Following enteric contrast, 80 cc of [id number] were injected intravenously, and 60 seconds later, 2.5 mm helical slices were obtained from the mid heart through the subtrochanteric regions. Following reconstruction, 2.5 mm sagittal, coronal and axial reformatted images were processed and reviewed at bone, lung and soft tissue windows. Five minutes later, 5 mm helical slices were obtained from the mid heart through the kidneys and viewed at soft tissue windows. FINDINGS: The stomach, duodenum and jejunum are moderately dilated. At the distal jejunum, there appears be smooth tapering stricture into a markedly decompressed ileum. The colon is relatively decompressed with less than expected amount of stool and gas. There is no free air or free fluid that would suggest third spacing. Lung bases show no abnormality. No effusion. Visualized heart is normal. Images through the abdomen show the liver is unremarkable. Gallbladder is surgically absent. Common bile is normal at 5 mm. The pancreas, both kidneys, adrenal glands, spleen and aorta, including aortic branches, are normal in size configuration and attenuation without focal lesion. Images through the pelvis show uterus and urinary bladder to be normal. The ovaries are normal. Bone windows show no osseous abnormality IMPRESSION: High-grade small bowel obstruction at the distal jejunal level ostensibly related to a stricture. There is no evidence of free air is noted which suggests bowel perforation and no supportive evidence for bowel ischemia. Interpreted and Authenticated by: All Lundberg 08/18/17
[2017-08-18] MEDS ORDERED: METOPROLOL TARTRATE 5 MG/5 ML VIAL IV PRN (23:44)
[2017-08-18] MEDS ORDERED: DIGOXIN 500 MCG/2 ML AMPUL IV ONE (23:46)
[2017-08-18] MEDS ORDERED: DIGOXIN 500 MCG/2 ML AMPUL IV PRN (23:49)
[2017-08-19] MEDS ORDERED: DIGOXIN 500 MCG/2 ML AMPUL IV ONE (00:01)
[2017-08-19] MEDS ORDERED: METOPROLOL TARTRATE 5 MG/5 ML VIAL IV ONE (00:02)
[2017-08-19] MEDS: HYDROmorphone 2 MG/ML SYRINGE IV PRN ×6 (00:54→19:02)
[2017-08-19] MEDS: 0.9 % SODIUM CHLORIDE 1,000 ML IV SCH ×5 (01:03→20:17)
[2017-08-19 01:40] LABS: Appearance,Urine CLEAR; Bilirubin,Urine NEG (NEG); Color,Urine YELLOW; Glucose,Urine (UA) NEGATIVE (NEG); Leukocyte Esterase,Urine NEG /uL (NEG); Nitrate,Urine NEG (NEG); Protein,Urine NEG (NEG); Specific Gravity,Urine 1.045 (1.000-1.035); Urine Blood NEG mg/dL (<0.03); Urobilinogen,Urine NEG (NEG)
[2017-08-19 04:01] LABS: Basophils # (Auto) 0 K/mcL (0.0-0.3); Basophils % (Auto) 0.2 % (0.0-2.0); Eosinophils # (Auto) 0.1 K/mcL (0.0-0.7); Eosinophils % (Auto) 0.9 % (0.0-7.0); Lymphocytes # (Auto) 1.3 K/mcL (1.5-4.8); Lymphocytes % (Auto) 7.9 % (15.5-49.0); Mean Cell Volume 88.3 fL (80.0-100.0); Mean Corpuscular HGB Conc 32.6 g/dL (31.0-36.0); Mean Corpuscular Hemoglobin 28.8 pg (26.0-34.0); Monocytes # (Auto) 1.1 K/mcL (0.1-0.9); Platelet Count 321 K/mcL (140-440); RBC 5.39 M/mcL (4.00-5.20); Red Cell Distribution Width 14.1 % (11.5-14.5)
[2017-08-19] MEDS ORDERED: METOPROLOL TARTRATE 5 MG/5 ML VIAL IV PRN (04:25)
[2017-08-19] MEDS ORDERED: DIGOXIN 500 MCG/2 ML AMPUL IV PRN (04:25)
[2017-08-19] MEDS ORDERED: PROMETHAZINE 25 MG/ML VIAL IV PRN (04:25)
[2017-08-19 04:27] LABS: ALT/SGPT 13 U/l (0-40); Albumin 3.9 gm/dL (3.2-5.2); Alkaline Phosphatase 68 U/L (39-117); Bilirubin,Direct < 0.2 mg/dL (0.0-0.3); Blood Urea Nitrogen 19 mg/dl (6-20); Gamma Glutamyl Transpeptidase 19 U/L (5-36); Magnesium 1.7 mg/dL (1.6-2.5); Uric Acid 5.2 mg/dL (2.5-8.0)
[2017-08-19] MEDS ORDERED: CALCIUM GLUCONATE 4.65 MEQ in DEXTROSE 5% IN WATER 50 ML IV ONE (04:32)
[2017-08-19] MEDS ORDERED: CALCIUM GLUCONATE 4.65 MEQ/10 ML VIAL ONE (04:47)
[2017-08-19] MEDS ORDERED: IOPAMIDOL 100 ML BOTTLE IV ONE (04:47)
[2017-08-19] MEDS ORDERED: MAGNESIUM SULFATE 2 GM/50 ML BAG IV ONE ×2 (05:16→05:30)
--- NOTE | 2017-08-19 05:24 | Internal Medicine Consult Note ---
Medical - CN: HPI - Data of Consult Consult date: 08/19/17 Requesting Physician: Bertha Currie MD Primary Care Provider: Douglas Haque Family Provider: Douglas Haque - Consult Narrative Reason for consult: Tachycardia History of present illness: Ms. Stephens is a 56 year old Female with h/o hypothyroidism, polyglandular syndrome, was admitted to the hospital with small bowel obstruction. The patient has an NG tube in place and is being managed conservatively by Surgery. Yesterday the patient was noted to be tachycardic, she was noted to be in sinus tachycardia, she was given metoprolol, which initially seemed to help her heart rate, The patients tachcycardia returned and the patient went back tachycardia. The patients HR was elevated from 130-150 range, EKG showed sinus tachycardia, metoprolol was repeated, and it seems even digoxin was given, the patient did not respond and remained tachycardic, Medicine was therefore consulted for further management. The patient has some abdominal pain, and intermittent headaches, beyond this denies any complaints, denies any chest pain, palpitations, shortness of breath , bowel or bladder complaints. The patient reports that she has tachycardia issues, which are intermittent, when ever she is in the hospital and it usually resolves by itself, sometimes with pain management. Repeat Set of labs showed rising wbc, stable Hb, her electrolytes showed low Calcium (chronically low), she has negative troponin, she remains in sinus tachycardia, mitchell was placed with good urine output. patiet has low TSH on labs , mg was 1.7, TG elevated > 500, rest of workup was unremarkable. CT Angio done to r/o PE is negative for PE as per night hawk read, no acute intrapulmonary process. CC: Bertha Currie MD All systems: reviewed and no additional remarkable complaints except as stated ( as per HPI) Medical - CN: PMH Medical history: Medical History Foot sprain (Acute) Anaphylaxis (Acute) Adverse reaction to drug (Acute) Severe sepsis (Acute) Pyelonephritis (Acute) Pneumonia (Acute) Myasthenia gravis (Acute) Polyglandular autoimmune syndrome (Acute) Sarcoidosis (Acute) Achalasia and cardiospasm (Acute) Hypothyroidism (Acute) UTI (urinary tract infection) (Acute) Infiltrate of lung present on imaging of chest (Acute) Small bowel obstruction, partial (Acute) Pancreatitis (Acute) Myasthenia gravis (Acute) Volume depletion (Acute) Partial intestinal obstruction, unspecified as to cause (Acute) Constipation due to pain medication therapy (Acute) Surgical history: Surgical history: cholecystetomy knee surgery thymectomy Family history: reviewed and not pertinent Social history: Social history: lives with / social etoh denies smoking, very remote history for 2 months. no recreational drugs. Medical - CN: Meds Home Medications Medication Instructions Recorded Confirmed Type predniSONE [Prednisone] 20 mg PO [facility] #4 tablet 05/18/16 08/18/17 Rx Calcitriol 0.25 mcg PO TID 11/30/16 08/18/17 History DULoxetine [Cymbalta] 30 mg PO BID 11/30/16 08/18/17 History Levothyroxine Sodium [Synthroid] 200 mcg PO DAILY 11/30/16 08/18/17 History Levothyroxine [Synthroid] 50 mcg PO DAILY 11/30/16 08/18/17 History Linaclotide [Linzess] 145 mg PO DAILY 11/30/16 08/18/17 History Nitroglycerin 0.4 mg PO PRN PRN 11/30/16 08/18/17 History Omeprazole 20 mg PO BID 11/30/16 08/18/17 History Allergies Allergy/AdvReac Type Severity Reaction Status Date / Time Sulfa (Sulfonamide Allergy Severe Anaphylaxis Verified 11/29/16 12:46 Antibiotics) metoclopramide [From Reglan] AdvReac Mild Anxiety Verified 11/29/16 20:03 steri strips Allergy Severe Blister Uncoded 06/12/15 15:48 Medical - CN: Exam - Constitutional Vitals: Temp Pulse Resp BP Pulse Ox 98.9 F 145 H 28 H 147/94 96 08/19/17 03:30 08/19/17 03:30 08/19/17 03:30 08/19/17 03:30 08/19/17 03:30 Exam: GENERAL: The patient is a well-developed, well-nourished in no apparent distress. Is alert and oriented x3. Obese lady VITAL SIGNS: Reviewed and as noted elsewhere. HEENT: Head is normocephalic and atraumatic. Extraocular muscles are intact. Pupils are equal, round, and reactive to light. Nares appeared normal. Mouth appears any without lesions. Mucous membranes are moist. NG tube to wall suction. NECK: Normal to inspection, Supple, No lymphadenopathy or thyromegaly. LUNGS: Air entry equal on both sides but diminished breath sounds bilaterally, no wheezing, crackles or rhonchi noted. No accessory muscles of respiration HEART: tachcyardic rate and rhythm normal, S1 and S2 heard, no Gallop, S3 or Rub Noted, No Gross murmur heard. ABDOMEN: Soft, nontender, but with epigastric distention . . No hepatosplenomegaly was noted. EXTREMITIES: No cyanosis, clubbing, rash, lesions or edema. NEUROLOGIC: Cranial nerves II through XII are grossly intact. Motor and Sensory System Grossly Intact PSYCHIATRIC: Normal affect, Normal Mood. Appropriate Behavior. SKIN: No ulceration or wounds noted, No jaundice, No rash noted. Medical - CN: Result - Labs CBC & Chem 7: 08/19/17 03:20 08/19/17 03:20 Labs: Short CBC 08/18/17 08/19/17 Range/Units 10:49 03:20 WBC 13.9 H 15.9 H (4.5-11.0) K/mcL Hgb 15.3 H 15.5 H (12.0-15.0) g/dL Hct 46.3 47.6 (36.0-48.0) % Plt Count 330 321 (140-440) K/mcL BMP 08/18/17 08/19/17 10:49 03:20 Sodium 136 140 Potassium 3.7 4.7 Chloride 91 L 97 Carbon Dioxide 25 25 BUN 19 19 Creatinine 0.9 0.7 Glucose 194 H 214 H Calcium 8.5 L 7.6 L Cardiac Enzymes 08/19/17 Range/Units 03:20 Troponin T < 0.01 (0-0.03) ng/ml Liver Function 08/18/17 08/19/17 Range/Units 10:49 03:20 Total Bilirubin 0.3 0.4 (0.0-1.0) mg/dL Direct Bilirubin < 0.2 (0.0-0.3) mg/dL GGT 19 (5-36) U/L AST 13 12 (0-37) U/l ALT 16 13 (0-40) U/l Alkaline Phosphatase 68 68 (39-117) U/L Albumin 4.1 3.9 (3.2-5.2) gm/dL Urine 08/19/17 Range/Units 01:05 Urine Color Yellow Urine Appearance Clear Urine pH 5.0 (5.0-9.0) Ur Specific Olive 1.045 H (1.000-1.035) Urine Protein Neg (NEG) mg/dL Urine Glucose (UA) Negative (NEG) mg/dL Medical - CN: A/P - Narrative A/P Narrative: A/P Sinus Tachycardia Discomfort Pain Hypothyroidims, Low TSH Polyglandular syndrome Sarcoidosis Hypocalcemia Hypomagnesemia Leucocytosis Plan The Tachycardia seems to be related to the patients acute abdominal process/ Pain issues, IV Tylenol for pain management, she seems to be adequately hydrated , CTA is neg for PE. her trop is negative. Her TSH is low, it could be contributing to her tachycardia, however will check t3,t4 levels before determining that this is a factor. For now plan is to monitor patient on tele, as per her this is not unusual when she is in the hospital and her heart rate responds by self Will keep electrolytes stable, given her propensity to become severely hypocalcemic, will replace ca IV and Mg IV, She is on chr steroids at home, will start her on solumedrol 20mg IV She may or may not need surgery for her bowel obstruction Should her heart rate be related to Thyroid, will repeat metoprolol dosing. Clinically there is no e/o infection, CT Abdomen was neg, CT chest neg, UA neg on presentation, pt blood cultures and procalcitonin sent. SCD for DVT prophylaxis. NPO diet
[2017-08-19] MEDS: methylPREDNISolone SOD SUCC 40 MG/ML VIAL IV SCH ×2 (05:29→08:19)
[2017-08-19] MEDS ORDERED: methylPREDNISolone SOD SUCC 125 MG/2 ML VIAL ONE (05:30)
[2017-08-19] MEDS: ACETAMINOPHEN 1,000 MG/100 ML BOTTLE IV PRN ×2 (05:31→20:17)
[2017-08-19] MEDS ORDERED: HYDROmorphone 2 MG/ML SYRINGE ONE (05:40)
[2017-08-19 05:45] LABS: Free T4 (Free Thyroxine) 1.41 ng/dl (0.7-1.7); T4 (Thyroxine) 9.3 ug/dl (5.0-12.0)
--- NOTE | 2017-08-19 05:57 | Cat Scan Report ---
CLINICAL INFORMATION: Tachycardia. Hypoxia. COMPARISON: None TECHNIQUE: Axial images obtained through the chest. Intravenous contrast was administered, and scanning was performed during pulmonary arterial phase. Sagittally and coronally reformatted images were obtained. MIP reformatted images. FINDINGS: Main pulmonary artery, right pulmonary artery, left pulmonary artery are negative. No intraluminal filling defects. No lobar, segmental, or subsegmental abnormalities. Examination is negative for pulmonary embolism. No focal pulmonary parenchymal infiltrate or mass. There is a calcified granuloma in the right upper lobe. This is benign. No pleural fluid. No pericardial fluid. Patient has undergone previous median sternotomy. Thoracic spine and ribs are negative. No lytic lesions. No fracture. There is an esophagogastric tube in the stomach. There is markedly dilated small and large bowel in the upper abdomen. This examination was initially interpreted by [facility] IMPRESSION: 1. Negative pulmonary CTA. Negative examination for pulmonary embolism 2. Markedly dilated small and large bowel. Interpreted and Authenticated by: All Cormier 08/19/17
[2017-08-19] MEDS ORDERED: ONDANSETRON 4 MG/2 ML VIAL ONE (06:45)
[2017-08-19] MEDS: PANTOPRAZOLE 40 MG VIAL IV SCH ×2 (07:44→17:17)
--- NOTE | 2017-08-19 08:02 | XRay Report ---
ORIGINAL REPORT CLINICAL INFORMATION: Small bowel obstruction. Follow-up. TECHNIQUE: AP supine and upright abdomen COMPARISON: Previous CT scan dated 08/18/2017. Previous plain film studies dated 08/18/2017, 07/07/2017, 07/06/2017. FINDINGS: Esophagogastric tube with its tip in the gastric antrum. There continues to be significantly dilated gas-filled small bowel throughout the abdomen. There are air-fluid levels. There is also a large amount of fecal material within the colon. Small bowel dilatation is present with cross-sectional diameter measuring proximally 5 to 6 cm. Radiographic appearance is unchanged. There is no biliary or portal venous gas. No pneumatosis. The right hemidiaphragm is not included in its entirety. Pneumoperitoneum is not excluded. Repeat upright examination centered higher will be performed and an addendum will be added. IMPRESSION: 1. Abnormal bowel gas pattern with markedly dilated gas-filled small bowel. There continues to be prominent gas and fecal material in the colon 2. No definite interval change since 08/18/2017 3. Repeat upright AP abdomen is pending and an addendum will be added. ADDENDUM #1 Repeat upright abdomen was performed. No detectable free air. Interpreted and Authenticated by: All Cormier 08/19/17
[2017-08-19] MEDS: METHYLNALTREXONE BROMIDE 12 MG/0.6 ML SYRINGE SQ SCH (08:17)
[2017-08-19] MEDS: PIPERACILLIN SODIUM/TAZOBACTAM 3.375 GM in DEXTROSE 5% IN WATER 50 ML IV SCH ×3 (08:38→22:29)
[2017-08-19] MEDS: CALCITRIOL 0.5 MCG CAPSULE PO SCH (09:04)
--- NOTE | 2017-08-19 10:18 | General Surgery Progress Note ---
Subjective Patient reports: no flatus, no bowel movement, afebrile Narrative: Note initiated : 08/19/17 at 10:15 am Service Date, if different from initiated Date: [] Patient: Dayanna Stephens 56 y/o F admitted on 08/18/17 for abd pain today. Chief Complaint: [Patient has progressive colon and small bowel distention due to extensive fecal impaction. She developed sinus tachycardia up to a rate of 140 due to abdominal pain and extensive abdominal distention due to massively dilated colon and small bowel. This is all related to her fecal impaction. She also has some atelectasis at the bases due to abdominal distention and upward compression of the diaphragms. Her white count has increased but she is not having increased abdominal pain at this time. She has not had any relief from the RELISTOR at this time. Discussed with her the need to disimpact her. Digital examination was done and it revealed many large balls of hard stool extending up as high as I can extend my fingers. She has offered to do manual disimpaction herself since she has started in the past. She denies any chest pain or shortness of breath but has an extreme sense of fullness] Objective Temp Pulse Resp BP Pulse Ox 99.3 F H 120 H 20 143/91 93 08/19/17 07:58 08/19/17 08:00 08/19/17 07:58 08/19/17 07:58 08/19/17 08:00 - Additional Data Intake & Output - Last 24 hours: Intake & Output 08/17/17 08/18/17 08/19/17 08/20/17 06:59 05:59 05:59 05:59 Intake Total 2310 / 2310 200 / 200 Output Total 840 / 840 50 / 50 Balance 1470 / 1470 150 / 150 Weight 247 lb 8 oz - General physical appearance moderate distress, moderate pain, obese - Eyes PERRL - ENT no congestion - Neck no venous distension - Respiratory other (Lungs are clear though her degree of expansion is decreased ) - Cardiovascular Cardiovascular exam: Present: JVD, RRR, +S1, +S2, tachycardia - Abdomen tender, bowel sounds, distended (Mild tenderness of the upper abdomen with decompression of the lower abdomen. This is associated with the known distention of the colon due to large fecal burden) - Rectum normal sphincter tone, no masses, other (Very large fecal balls filling entire rectum and lower sigmoid) - Integumentary no rash, no growths, no abnormal pigmentation - Neurologic normal coordination, normal sensation - Musculoskeletal normal gait, normal posture - Psychiatric oriented to time, oriented to person, oriented to place, speech is normal, memory intact - Labs 08/19/17 03:20 08/19/17 03:20 Diabetes panel 08/18/17 08/19/17 Range/Units 10:49 03:20 Sodium 136 140 (133-145) mmol/L Potassium 3.7 4.7 (3.3-5.1) mmol/L Chloride 91 L 97 (96-108) mmol/L Carbon Dioxide 25 25 (22-30) mmol/L BUN 19 19 (6-20) mg/dl Creatinine 0.9 0.7 (0.6-1.1) mg/dl Glucose 194 H 214 H (70-105) mg/dL Calcium 8.5 L 7.6 L (8.6-10.4) mg/dl AST 13 12 (0-37) U/l ALT 16 13 (0-40) U/l Alkaline Phosphatase 68 68 (39-117) U/L Total Protein 7.9 7.8 (5.9-8.4) gm/dL Albumin 4.1 3.9 (3.2-5.2) gm/dL Triglycerides 557 H (<150) mg/dl Thyroid panel 08/19/17 08/19/17 Range/Units 03:20 03:20 TSH 0.03 L (0.27-5.01) uIU/ml Thyroxine (T4) 9.3 (5.0-12.0) ug/dl Calcium panel 08/18/17 08/19/17 Range/Units 10:49 03:20 Calcium 8.5 L 7.6 L (8.6-10.4) mg/dl Phosphorus 5.1 H (2.7-4.5) mg/dL Albumin 4.1 3.9 (3.2-5.2) gm/dL Pituitary panel 08/18/17 08/19/17 08/19/17 Range/Units 10:49 03:20 03:20 Sodium 136 140 (133-145) mmol/L Potassium 3.7 4.7 (3.3-5.1) mmol/L Chloride 91 L 97 (96-108) mmol/L Carbon Dioxide 25 25 (22-30) mmol/L BUN 19 19 (6-20) mg/dl Creatinine 0.9 0.7 (0.6-1.1) mg/dl Glucose 194 H 214 H (70-105) mg/dL Calcium 8.5 L 7.6 L (8.6-10.4) mg/dl TSH 0.03 L (0.27-5.01) uIU/ml Thyroxine (T4) (5.0-12.0) ug/dl 08/19/17 Range/Units 03:20 Sodium (133-145) mmol/L Potassium (3.3-5.1) mmol/L Chloride (96-108) mmol/L Carbon Dioxide (22-30) mmol/L BUN (6-20) mg/dl Creatinine (0.6-1.1) mg/dl Glucose (70-105) mg/dL Calcium (8.6-10.4) mg/dl TSH (0.27-5.01) uIU/ml Thyroxine (T4) 9.3 (5.0-12.0) ug/dl Adrenal panel 08/18/17 08/19/17 Range/Units 10:49 03:20 Sodium 136 140 (133-145) mmol/L Potassium 3.7 4.7 (3.3-5.1) mmol/L Chloride 91 L 97 (96-108) mmol/L Carbon Dioxide 25 25 (22-30) mmol/L BUN 19 19 (6-20) mg/dl Creatinine 0.9 0.7 (0.6-1.1) mg/dl Glucose 194 H 214 H (70-105) mg/dL Calcium 8.5 L 7.6 L (8.6-10.4) mg/dl Total Bilirubin 0.3 0.4 (0.0-1.0) mg/dL AST 13 12 (0-37) U/l ALT 16 13 (0-40) U/l Alkaline Phosphatase 68 68 (39-117) U/L Total Protein 7.9 7.8 (5.9-8.4) gm/dL Albumin 4.1 3.9 (3.2-5.2) gm/dL Assessment and Plan (1) Partial intestinal obstruction, unspecified as to cause Status: Acute Assessment and plan: All due to fecal impaction Manual disimpaction to be started Double soapsuds enema 2 Follow-up abdominal series about 1600 hrs. continue Relistor Follow-up abdominal series in the morning After she has evacuated part of her colon will start on MiraLAX for complete cleansing of colon Current Visit: Yes (2) Constipation due to pain medication therapy Status: Acute Assessment and plan: .manual disimpaction Soapsuds enema 2 Continue Relistor daily Start MiraLAX in the morning for complete cleansing Current Visit: Yes (3) Myasthenia gravis Status: Acute Current Visit: No (4) Polyglandular autoimmune syndrome Status: Acute Current Visit: No (5) Sarcoidosis Status: Acute Current Visit: No (6) Achalasia and cardiospasm Status: Acute Current Visit: No (7) Hypothyroidism Status: Acute Current Visit: No (8) Myasthenia gravis Status: Acute Current Visit: No (9) Supraventricular tachycardia Status: Acute Assessment and plan: This will resolve once her colon distention is improved. This is a secondary response to her massive colon and small bowel distention Current Visit: Yes - Time Spent With Patient Total time spent is greater than 50% in coordination of care (as documented) at patient's floor/unit and/or counseling patient:
[2017-08-19] MEDS ORDERED: PEG 3350/NA SULF,BICARB,CL/KCL 4,000 ML ORAL.SOL PO ONE (14:52)
--- NOTE | 2017-08-19 15:30 | Brief Operative Note ---
Date of procedure: 08/19/17 Pre-op diagnosis: epigastric and substernal pain Post-op diagnosis: other (GERD WITH DISTAL ESOPHAGITIS AND SUPERFICIAL ULCERS; GASTROPARESIS WITH EROSIVE GASTRITIS) Procedure: EGD WITH BIOPSIES FOR CIARA TEST Grafts/Implants: No Anesthesia: other (GENERAL ) Findings: ULCERATIONS OF DISTAL ESOPHAGUS AND GE JUNCTION; INFLAMMATION OF ANTRUM AND BODY WITH SUPERFICIAL EROSIONS RETAINED FLUID IN STOMACH WITH GASTROPARESIS WITH NO PERISTALTIC WAVES SEEN DURING ENTIRE EXAM Complications: none Surgeon: Bertha Currie Specimens Removed/Pathology: other (ANTRAL BIOPSIES) Condition: stable Disposition: same day
--- NOTE | 2017-08-19 18:42 | XRay Report ---
CLINICAL INFORMATION: History of small bowel obstruction. Follow-up. TECHNIQUE: AP supine and upright abdomen COMPARISON: Multiple previous examinations. Previous plain film studies are dated 03/30 and 08/18/2017. Previous CT scan is dated 08/18/2017. FINDINGS: No change in esophagogastric tube position. Persistent dilated gas-filled small bowel with scattered air-fluid levels. There continues to be a large amount of fecal material throughout the colon. On upright AP examination there is lucency at the right hemidiaphragm. Cannot exclude subtle pneumoperitoneum. Left lateral decubitus view or CT scan recommended for further evaluation. No pneumatosis. No biliary or portal venous gas. IMPRESSION: 1. Continued dilated gas-filled small bowel 2. Possible subtle pneumoperitoneum. This is not definite but left lateral decubitus view or CT scan are recommended. Interpreted and Authenticated by: All Cormier 08/19/17
--- NOTE | 2017-08-19 19:37 | XRay Report ---
CLINICAL INFORMATION: Possible pneumoperitoneum TECHNIQUE: Portable left lateral decubitus abdomen COMPARISON: Previous supine and upright abdomen dated 08/19/2017 FINDINGS: Previous examination was suspicious for possible pneumoperitoneum. Left lateral decubitus view is negative. There is no pneumoperitoneum. No biliary or portal venous gas. No pneumatosis. IMPRESSION: Negative left lateral decubitus view. No pneumoperitoneum. Interpreted and Authenticated by: All Cormier 08/19/17
[2017-08-20] MEDS: PIPERACILLIN SODIUM/TAZOBACTAM 3.375 GM in DEXTROSE 5% IN WATER 50 ML IV SCH ×3 (00:23→14:22)
[2017-08-20] MEDS: HYDROmorphone 2 MG/ML SYRINGE IV PRN ×6 (02:59→21:48)
[2017-08-20 05:08] LABS: Basophils # (Auto) 0 K/mcL (0.0-0.3); Basophils % (Auto) 0.2 % (0.0-2.0); Eosinophils # (Auto) 0.1 K/mcL (0.0-0.7); Granulocytes % (Auto) 74.1 % (38.0-78.0); Lymphocytes # (Auto) 1.7 K/mcL (1.5-4.8); Lymphocytes % (Auto) 14.6 % (15.5-49.0); Mean Cell Volume 88.4 fL (80.0-100.0); Mean Corpuscular HGB Conc 33.3 g/dL (31.0-36.0); Mean Corpuscular Hemoglobin 29.5 pg (26.0-34.0); Monocytes # (Auto) 1.2 K/mcL (0.1-0.9); Monocytes % (Auto) 10.1 % (1.0-12.0); Platelet Count 268 K/mcL (140-440); RBC 4.31 M/mcL (4.00-5.20); Red Cell Distribution Width 13.9 % (11.5-14.5)
[2017-08-20 05:26] LABS: ALT/SGPT 12 U/l (0-40); Albumin 3.3 gm/dL (3.2-5.2); Alkaline Phosphatase 54 U/L (39-117); Bilirubin,Direct < 0.2 mg/dL (0.0-0.3); Blood Urea Nitrogen 14 mg/dl (6-20); Gamma Glutamyl Transpeptidase 15 U/L (5-36); Magnesium 1.8 mg/dL (1.6-2.5); Uric Acid 3.6 mg/dL (2.5-8.0)
[2017-08-20] MEDS: 0.9 % SODIUM CHLORIDE 1,000 ML IV SCH ×2 (06:05→19:58)
[2017-08-20] MEDS: PANTOPRAZOLE 40 MG VIAL IV SCH ×2 (08:06→17:28)
[2017-08-20] MEDS ORDERED: FLU VACC QS2017-18 36MOS UP/PF 60 MCG/0.5 ML SYRINGE IM ONE (10:00)
[2017-08-20] MEDS: methylPREDNISolone SOD SUCC 40 MG/ML VIAL IV SCH (10:07)
[2017-08-20] MEDS: METHYLNALTREXONE BROMIDE 12 MG/0.6 ML SYRINGE SQ SCH (10:07)
[2017-08-20] MEDS: ONDANSETRON 4 MG/2 ML VIAL IV PRN ×2 (11:12→16:45)
[2017-08-20] MEDS: CALCITRIOL 0.5 MCG CAPSULE PO SCH (11:21)
[2017-08-20] MEDS ORDERED: CALCIUM GLUCONATE 4.65 MEQ/10 ML VIAL IV ONE (11:51)
--- NOTE | 2017-08-20 11:57 | General Surgery Progress Note ---
Subjective Patient reports: feels better, still having pain, flatus, bowel movement Narrative: Note initiated : 08/20/17 at 11:54 am Service Date, if different from initiated Date: [] Patient: Dayanna Stephens 56 y/o F admitted on 08/18/17 for Abd Pain/Small Bowel Obstruction. Chief Complaint: [Patient had multiple bowel movements last evening. She still has a large volume of stool in her proximal colon on the last abdominal series. She has been started on oral GoLYTELY with a plan to now evacuate the proximal colon. She is otherwise stable except for mild nausea from the GoLYTELY. ] Her heart rate is in the 100-110 range. Objective Temp Pulse Resp BP Pulse Ox 98.9 F 119 H 16 160/98 97 08/20/17 08:00 08/19/17 15:53 08/20/17 08:00 08/20/17 08:00 08/20/17 08:00 - Additional Data Intake & Output - Last 24 hours: Intake & Output 08/18/17 08/19/17 08/20/17 08/21/17 05:59 05:59 05:59 05:59 Intake Total 2310 / 2310 3046 / 3046 50 / 50 Output Total 840 / 840 2980 / 2980 Balance 1470 / 1470 66 / 66 50 / 50 Weight 247 lb 8 oz 246 lb 8 oz - General physical appearance no distress, moderate pain - Eyes PERRL - ENT no congestion - Neck no venous distension - Respiratory clear to auscultation - Cardiovascular Cardiovascular exam: Present: irregular rhythm, +S1, +S2, tachycardia - Abdomen tender, distended (Upper abdomen is distended but nontender. She has hyperactive bowel sounds with no palpable masses) - Integumentary no rash, no growths, no abnormal pigmentation - Neurologic normal coordination, normal sensation - Musculoskeletal normal gait, normal posture - Psychiatric oriented to time, oriented to person, oriented to place, speech is normal, memory intact - Labs 08/20/17 04:00 08/20/17 04:00 Diabetes panel 08/20/17 Range/Units 04:00 Sodium 139 (133-145) mmol/L Potassium 3.8 (3.3-5.1) mmol/L Chloride 99 (96-108) mmol/L Carbon Dioxide 25 (22-30) mmol/L BUN 14 (6-20) mg/dl Creatinine 0.7 (0.6-1.1) mg/dl Glucose 161 H (70-105) mg/dL Calcium 6.5 L (8.6-10.4) mg/dl AST 16 (0-37) U/l ALT 12 (0-40) U/l Alkaline Phosphatase 54 (39-117) U/L Total Protein 6.6 (5.9-8.4) gm/dL Albumin 3.3 (3.2-5.2) gm/dL Triglycerides 252 H (<150) mg/dl Calcium panel 08/20/17 Range/Units 04:00 Calcium 6.5 L (8.6-10.4) mg/dl Phosphorus 3.3 (2.7-4.5) mg/dL Albumin 3.3 (3.2-5.2) gm/dL Pituitary panel 08/20/17 Range/Units 04:00 Sodium 139 (133-145) mmol/L Potassium 3.8 (3.3-5.1) mmol/L Chloride 99 (96-108) mmol/L Carbon Dioxide 25 (22-30) mmol/L BUN 14 (6-20) mg/dl Creatinine 0.7 (0.6-1.1) mg/dl Glucose 161 H (70-105) mg/dL Calcium 6.5 L (8.6-10.4) mg/dl Adrenal panel 08/20/17 Range/Units 04:00 Sodium 139 (133-145) mmol/L Potassium 3.8 (3.3-5.1) mmol/L Chloride 99 (96-108) mmol/L Carbon Dioxide 25 (22-30) mmol/L BUN 14 (6-20) mg/dl Creatinine 0.7 (0.6-1.1) mg/dl Glucose 161 H (70-105) mg/dL Calcium 6.5 L (8.6-10.4) mg/dl Total Bilirubin 0.5 (0.0-1.0) mg/dL AST 16 (0-37) U/l ALT 12 (0-40) U/l Alkaline Phosphatase 54 (39-117) U/L Total Protein 6.6 (5.9-8.4) gm/dL Albumin 3.3 (3.2-5.2) gm/dL Assessment and Plan (1) Partial intestinal obstruction, unspecified as to cause Status: Acute Assessment and plan: Relistor 12 mg subcu 2 more doses GoLYTELY 2000 cc orally Discontinue Martinez catheter Check abdominal series in the morning Start full liquid diet Current Visit: Yes (2) Constipation due to pain medication therapy Status: Acute Assessment and plan: Continue Relistor Current Visit: Yes (3) Myasthenia gravis Status: Acute Current Visit: No (4) Polyglandular autoimmune syndrome Status: Acute Current Visit: No (5) Sarcoidosis Status: Acute Current Visit: No (6) Achalasia and cardiospasm Status: Acute Current Visit: No (7) Hypothyroidism Status: Acute Current Visit: No (8) Myasthenia gravis Status: Acute Current Visit: No (9) Supraventricular tachycardia Status: Acute Assessment and plan: Significantly improved. Current Visit: Yes - Time Spent With Patient Total time spent is greater than 50% in coordination of care (as documented) at patient's floor/unit and/or counseling patient:
[2017-08-20] MEDS ORDERED: CALCIUM GLUCONATE 9.3 MEQ in DEXTROSE 5% IN WATER 100 ML IV ONE (12:00)
[2017-08-20] MEDS ORDERED: METHYLNALTREXONE BROMIDE 12 MG/0.6 ML SYRINGE SQ SCH (12:30)
[2017-08-20] MEDS: ACETAMINOPHEN 1,000 MG/100 ML BOTTLE IV PRN (12:50)
[2017-08-20] MEDS: CALCITRIOL 0.25 MCG CAPSULE PO SCH ×2 (14:48→21:49)
[2017-08-20] MEDS ORDERED: MAGNESIUM SULFATE 2 GM/50 ML BAG IV ONE (15:59)
--- NOTE | 2017-08-20 15:59 | Internal Med Progress Note ---
Medical - PN: Subj Patient information: Note initiated : 08/20/17 at 3:54 pm Service Date, if different from initiated Date: [] Patient: Dayanna Stephens 56 y/o F admitted on 08/18/17 for Abd Pain/Small Bowel Obstruction. Chief Complaint: [] Interval history: Ms. Stephens is a 56 year old Female with h/o hypothyroidism, polyglandular syndrome, was admitted to the hospital with small bowel obstruction. The patient has an NG tube in place and is being managed conservatively by Surgery. Yesterday the patient was noted to be tachycardic, she was noted to be in sinus tachycardia, she was given metoprolol, which initially seemed to help her heart rate, The patients tachcycardia returned and the patient went back tachycardia. The patients HR was elevated from 130-150 range, EKG showed sinus tachycardia, metoprolol was repeated, and it seems even digoxin was given, the patient did not respond and remained tachycardic, Medicine was therefore consulted for further management. The patient has some abdominal pain, and intermittent headaches, beyond this denies any complaints, denies any chest pain, palpitations, shortness of breath , bowel or bladder complaints. The patient reports that she has tachycardia issues, which are intermittent, when ever she is in the hospital and it usually resolves by itself, sometimes with pain management. Repeat Set of labs showed rising wbc, stable Hb, her electrolytes showed low Calcium (chronically low), she has negative troponin, she remains in sinus tachycardia, mitchell was placed with good urine output. patiet has low TSH on labs , mg was 1.7, TG elevated > 500, rest of workup was unremarkable. CT Angio done to r/o PE is negative for PE as per night hawk read, no acute intrapulmonary process. August 19 Patient seen examined NG tube is now out, patient calcium still low, replaced with IV calcium now that we can resume oral meds will resuem calcitriol. Will use highter doses if needed heart rate still elevated but improving. Pertinent ROS: Denies headache, dizziness Denies chest pain, palpitations Denies cough or shortness of breath Denies abdominal pain, nausea or vomiting. - Constitutional Vitals: Vital Signs Temp Pulse Resp BP Pulse Ox 98.7 F 119 H 18 163/99 94 08/20/17 12:00 08/19/17 15:53 08/20/17 12:00 08/20/17 12:00 08/20/17 12:00 Period Temp Pulse Resp BP Sys/Archuleta Pulse Ox Last 24 Hr 98.3 F-99.7 F 16-18 140-163/90-99 92-97 Intake and Output 08/20/17 08/20/17 08/20/17 05:59 13:59 21:59 Intake Total 1050 / 1050 1490 / 1490 714 / 714 Output Total 780 / 780 300 / 300 Balance 270 / 270 1190 / 1190 714 / 714 Intake & Output: Intake & Output 08/20/17 08/20/17 08/20/17 05:59 13:59 21:59 Intake Total 1050 / 1050 1490 / 1490 714 / 714 Output Total 780 / 780 300 / 300 Balance 270 / 270 1190 / 1190 714 / 714 Intake: IV 1050 / 1050 990 / 990 214 / 214 Sodium Chloride 0.9% 1,000 ml @ 1000 / 1000 720 / 720 164 / 164 120 mls/hr IV .Q8H20M [facility] Rx#: [id number] Calcium Gluconate 9.3 Meq In 120 / 120 Dextrose 5% in Water 100 ml @ 240 mls/hr IV ONCE ONE Rx#: [id number] Zosyn 3.375 gm In Dextrose 5% 50 / 50 50 / 50 50 / 50 in Water 50 ml @ 100 mls/hr IV Q8H [facility] Rx#:[id number] Oral 500 / 500 500 / 500 Output: Gastric Drainage 30 / 30 Left Nare 30 / 30 Urine Catheter Amount 550 / 550 275 / 275 Void Amount 25 / 25 Stool 200 / 200 Other: # Bowel Movements 1 Exam: Constitutional; Afebrile, cooperative, alert, not in distress. Eyes- No icterus, , No periorbital swelling Ears- Ext ear normal, hearing normal to conversation. Neck- Midline trachea, supple Respiratory system: Air Entry equal on both sides, No crackles or wheezing, no rhonchi. CVS- Rate rhythm regular, S1,S2 heard, no gallop, no rub. 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 Medical - PN: Obj Da - Labs CBC & Chem 7: 08/20/17 04:00 08/20/17 04:00 Labs: Abnormal Lab Results 08/20/17 08/20/17 08/19/17 04:00 04:00 03:20 WBC 11.6 H RBC Hgb Gran % Lymph % (Auto) 14.6 L Gran # 8.6 H Lymph # (Auto) [place] # (Auto) 1.2 H ESR Chloride Anion Gap Glucose 161 H Calcium 6.5 L Phosphorus Lactate Dehydrogenase 307 H NT-Pro-B Natriuret Pep Globulin Triglycerides 252 H TSH 0.03 L Ur Specific [place] 08/19/17 08/19/17 08/19/17 03:20 03:20 03:20 WBC 15.9 H RBC 5.39 H Hgb 15.5 H Gran % 84.0 H Lymph % (Auto) 7.9 L Gran # 13.4 H Lymph # (Auto) 1.3 L [place] # (Auto) 1.1 H ESR Chloride Anion Gap 18.0 H Glucose 214 H Calcium 7.6 L Phosphorus 5.1 H Lactate Dehydrogenase 272 H NT-Pro-B Natriuret Pep 135.7 H Globulin 3.9 H Triglycerides 557 H TSH Ur Specific [place] 08/19/17 08/18/17 08/18/17 01:05 10:49 10:49 WBC RBC Hgb Gran % Lymph % (Auto) Gran # Lymph # (Auto) [place] # (Auto) ESR 63 H Chloride 91 L Anion Gap 20.0 H Glucose 194 H Calcium 8.5 L Phosphorus Lactate Dehydrogenase NT-Pro-B Natriuret Pep Globulin 3.8 H Triglycerides TSH Ur Specific [place] 1.045 H 08/18/17 10:49 WBC 13.9 H RBC 5.28 H Hgb 15.3 H Gran % Lymph % (Auto) Gran # 9.1 H Lymph # (Auto) [place] # (Auto) 1.1 H ESR Chloride Anion Gap Glucose Calcium Phosphorus Lactate Dehydrogenase NT-Pro-B Natriuret Pep Globulin Triglycerides TSH Ur Specific [place] Meds: Medications Calcitriol (Rocaltrol) 0.25 mcg PO TID [facility] Last Admin: 08/20/17 14:48 Dose: 0.25 mcg Duloxetine HCl (Cymbalta) 30 mg PO BID [facility] Hydromorphone HCl (Dilaudid) 1 mg IV Q2HP PRN PRN Reason: Pain Last Admin: 08/20/17 14:29 Dose: 1 mg Sodium Chloride (Sodium Chloride 0.9%) 1,000 mls @ 120 mls/hr IV .Q8H20M [facility] Last Infusion: 08/20/17 14:53 Dose: 120 mls/hr Acetaminophen (Ofirmev) 1,000 mg in 100 mls @ 200 mls/hr IV Q6HP PRN PRN Reason: PAIN/FEVER > 101 Last Infusion: 08/20/17 13:20 Dose: Infused Piperacillin Sod/Tazobactam (Sod 3.375 gm/ Dextrose) 50 mls @ 100 mls/hr IV Q8H [facility] Last Infusion: 08/20/17 14:53 Dose: Infused Levothyroxine Sodium (Synthroid) 250 mcg PO QAMAC [facility] Methylnaltrexone [place] (Relistor) 12 mg SQ DAILY [facility] Stop: 08/22/17 09:01 Methylprednisolone Sodium Succinate (Solu-Medrol) 20 mg IV DAILY [facility] Last Admin: 08/20/17 10:07 Dose: 20 mg Ondansetron HCl (Zofran) 4 mg IV Q4HP PRN PRN Reason: Nausea And Vomiting Last Admin: 08/20/17 11:12 Dose: 4 mg Pantoprazole Sodium (Protonix) 40 mg IV BIDAC [facility] Last Admin: 08/20/17 08:06 Dose: 40 mg Promethazine HCl (Phenergan) 12.5 mg IV Q4HP PRN PRN Reason: Nausea And Vomiting Medical - PN: A/P - Time Spent With Patient Total time spent is greater than 50% in coordination of care (as documented) at patient's floor/unit and/or counseling patient: - Narrative A/P Narrative: A/P Sinus Tachycardia- Improving, secondary to GI process? infection, on zosym. switch to cipro and flagyl Discomfort Pain- Prn pain meds as per surgery. Hypothyroidism- resume levothyroxine. , Low TSH- t3,t4 normal, subclinical hyperthyroidism? pt needs to have repeat TSH done by pcp in 12 months to evaluate this. TSh can be low in Acute illness states which resolves spontaneously. Polyglandular syndrome/ Sarcoidosis: On iv solumedrol for now, resume oral prednisone in AM. Hypocalcemia: IV calcium, po vit D3 to resume Hypomagnesemia-replace mg to keep mg > 2.0 Leucocytosis- possible gi source. switch zosyn to rocephin and flagyl, monitor. Medical - PN: Qual - Stroke Symptom Onset Unknown: No - VTE Deep Vein Thrombosis/Pulmonary Embolism Present on Admission: No
[2017-08-20] MEDS: cefTRIAXone 2 GM VIAL IV SCH (16:30)
[2017-08-20] MEDS: metroNIDAZOLE 500 MG/100 ML BAG IV SCH ×2 (16:52→21:48)
[2017-08-20] MEDS: DULoxetine 30 MG CAPSULE PO SCH (21:49)
[2017-08-21] MEDS: HYDROmorphone 2 MG/ML SYRINGE IV PRN ×5 (00:14→21:39)
[2017-08-21 06:20] LABS: Basophils # (Auto) 0 K/mcL (0.0-0.3); Basophils % (Auto) 0.4 % (0.0-2.0); Eosinophils # (Auto) 0.2 K/mcL (0.0-0.7); Eosinophils % (Auto) 1.9 % (0.0-7.0); Granulocytes % (Auto) 63.5 % (38.0-78.0); Lymphocytes # (Auto) 2.3 K/mcL (1.5-4.8); Lymphocytes % (Auto) 22.7 % (15.5-49.0); Mean Cell Volume 86.9 fL (80.0-100.0); Mean Corpuscular HGB Conc 33.4 g/dL (31.0-36.0); Mean Corpuscular Hemoglobin 29.1 pg (26.0-34.0); Monocytes # (Auto) 1.2 K/mcL (0.1-0.9); Monocytes % (Auto) 11.5 % (1.0-12.0); Platelet Count 233 K/mcL (140-440); RBC 3.98 M/mcL (4.00-5.20); Red Cell Distribution Width 13.1 % (11.5-14.5)
[2017-08-21 06:35] LABS: ALT/SGPT 14 U/l (0-40); Albumin/Globulin Ratio 1.1 (1.0-2.3); Alkaline Phosphatase 47 U/L (39-117); Bilirubin,Direct < 0.2 mg/dL (0.0-0.3); Blood Urea Nitrogen 11 mg/dl (6-20); Gamma Glutamyl Transpeptidase 11 U/L (5-36); Magnesium 1.6 mg/dL (1.6-2.5); Uric Acid 3.3 mg/dL (2.5-8.0)
[2017-08-21] MEDS ORDERED: CALCIUM GLUCONATE 4.65 MEQ/10 ML VIAL IV ONE ×2 (07:05→13:32)
[2017-08-21] MEDS ORDERED: LEVOTHYROXINE 125 MCG TABLET PO SCH (07:30)
[2017-08-21] MEDS: metroNIDAZOLE 500 MG/100 ML BAG IV SCH ×3 (07:51→21:21)
[2017-08-21] MEDS: PANTOPRAZOLE 40 MG VIAL IV SCH ×2 (07:51→17:23)
[2017-08-21] MEDS ORDERED: predniSONE 20 MG TABLET PO SCH ×2 (08:00)
--- NOTE | 2017-08-21 08:04 | General Surgery Progress Note ---
Subjective Patient reports: feels better, pain is less, tolerating liquids well, flatus, bowel movement, afebrile Narrative: Note initiated : 08/21/17 at 8:02 am Service Date, if different from initiated Date: [] Patient: Dayanna Stephens 56 y/o F admitted on 08/18/17 for Abd Pain/Small Bowel Obstruction. Chief Complaint: [] Patient states that she feels much better. She had 2 large bowel movements earlier this morning and her abdomen is much softer. She is also passing much more flatus. She remains afebrile. Her serum calcium has continued to be trending low but it is been replaced by the hospitalist. She has no other complaints. Objective Temp Pulse Resp BP Pulse Ox 97.9 F 119 H 18 167/94 95 08/21/17 00:00 08/19/17 15:53 08/21/17 03:13 08/21/17 03:13 08/21/17 03:13 - Additional Data Intake & Output - Last 24 hours: Intake & Output 08/19/17 08/20/17 08/21/17 08/22/17 05:59 05:59 05:59 05:59 Intake Total 2310 / 2310 3046 / 3046 4370 / 4370 Output Total 840 / 840 2980 / 2980 4000 / 4000 Balance 1470 / 1470 66 / 66 370 / 370 Weight 247 lb 8 oz 246 lb 8 oz 251 lb 8 oz - General physical appearance no distress, no pain - Eyes PERRL - ENT no congestion - Neck no venous distension - Respiratory normal respiratory effort, clear to auscultation - Cardiovascular Cardiovascular exam: Present: normal rate and rhythm, RRR, +S1, +S2. Absent: JVD - Abdomen soft, non tender, bowel sounds, distended (Abdomen is mildly distended but much softer than on last evening. She does not have any tenderness. She has good active bowel sounds.) - Integumentary no rash, no growths, no abnormal pigmentation - Neurologic normal coordination, normal sensation - Musculoskeletal normal gait, normal posture - Psychiatric oriented to time, oriented to person, oriented to place, speech is normal, memory intact - Labs 08/21/17 03:35 08/21/17 03:35 Diabetes panel 08/21/17 Range/Units 03:35 Sodium 135 (133-145) mmol/L Potassium 3.2 L (3.3-5.1) mmol/L Chloride 96 (96-108) mmol/L Carbon Dioxide 22 (22-30) mmol/L BUN 11 (6-20) mg/dl Creatinine 0.6 (0.6-1.1) mg/dl Glucose 142 H (70-105) mg/dL Calcium 5.5 L* (8.6-10.4) mg/dl AST 16 (0-37) U/l ALT 14 (0-40) U/l Alkaline Phosphatase 47 (39-117) U/L Total Protein 5.8 L (5.9-8.4) gm/dL Albumin 3.0 L (3.2-5.2) gm/dL Triglycerides 237 H (<150) mg/dl Calcium panel 08/21/17 Range/Units 03:35 Calcium 5.5 L* (8.6-10.4) mg/dl Phosphorus 3.2 (2.7-4.5) mg/dL Albumin 3.0 L (3.2-5.2) gm/dL Pituitary panel 08/21/17 Range/Units 03:35 Sodium 135 (133-145) mmol/L Potassium 3.2 L (3.3-5.1) mmol/L Chloride 96 (96-108) mmol/L Carbon Dioxide 22 (22-30) mmol/L BUN 11 (6-20) mg/dl Creatinine 0.6 (0.6-1.1) mg/dl Glucose 142 H (70-105) mg/dL Calcium 5.5 L* (8.6-10.4) mg/dl Adrenal panel 08/21/17 Range/Units 03:35 Sodium 135 (133-145) mmol/L Potassium 3.2 L (3.3-5.1) mmol/L Chloride 96 (96-108) mmol/L Carbon Dioxide 22 (22-30) mmol/L BUN 11 (6-20) mg/dl Creatinine 0.6 (0.6-1.1) mg/dl Glucose 142 H (70-105) mg/dL Calcium 5.5 L* (8.6-10.4) mg/dl Total Bilirubin 0.2 (0.0-1.0) mg/dL AST 16 (0-37) U/l ALT 14 (0-40) U/l Alkaline Phosphatase 47 (39-117) U/L Total Protein 5.8 L (5.9-8.4) gm/dL Albumin 3.0 L (3.2-5.2) gm/dL Assessment and Plan (1) Partial intestinal obstruction, unspecified as to cause Status: Acute Assessment and plan: Relistor 12 mg subcu 2 more doses Check abdominal series in the morning Start full liquid diet Reduce IV fluids to 50 cc/h Current Visit: Yes (2) Constipation due to pain medication therapy Status: Acute Assessment and plan: Continue Relistor Current Visit: Yes (3) Myasthenia gravis Status: Acute Current Visit: No (4) Polyglandular autoimmune syndrome Status: Acute Current Visit: No (5) Sarcoidosis Status: Acute Current Visit: No (6) Achalasia and cardiospasm Status: Acute Current Visit: No (7) Hypothyroidism Status: Acute Current Visit: No (8) Myasthenia gravis Status: Acute Current Visit: No (9) Supraventricular tachycardia Status: Acute Assessment and plan: Significantly improved. Current Visit: Yes - Time Spent With Patient Total time spent is greater than 50% in coordination of care (as documented) at patient's floor/unit and/or counseling patient:
[2017-08-21] MEDS ORDERED: MAGNESIUM SULFATE 2 GM/50 ML BAG IV ONE (08:18)
[2017-08-21] MEDS: ONDANSETRON 4 MG/2 ML VIAL IV PRN (08:37)
[2017-08-21] MEDS ORDERED: LEVOTHYROXINE SODIUM 200 MCG PO SCH (09:00)
[2017-08-21] MEDS ORDERED: CALCITRIOL 0.25 MCG PO SCH (09:00)
[2017-08-21] MEDS ORDERED: POTASSIUM CHLORIDE 40 MEQ in DEXTROSE 5% IN WATER 500 ML IV ONE (09:00)
[2017-08-21] MEDS ORDERED: CALCIUM GLUCONATE 9.3 MEQ in DEXTROSE 5% IN WATER 100 ML IV ONE ×2 (09:00→13:45)
[2017-08-21] MEDS ORDERED: METHYLNALTREXONE BROMIDE 12 MG/0.6 ML SYRINGE SQ SCH (09:00)
[2017-08-21 09:57] LABS: Ionized Calcium 0.65 mmol/L (1.16-1.32)
[2017-08-21] MEDS: cefTRIAXone 2 GM VIAL IV SCH (10:13)
[2017-08-21] MEDS: CALCITRIOL 0.25 MCG CAPSULE PO SCH ×3 (10:14→21:16)
[2017-08-21] MEDS: DULoxetine 30 MG CAPSULE PO SCH ×2 (10:14→21:15)
[2017-08-21] MEDS: CALCIUM CARBONATE 1,250 MG/5 ML ORAL.SUSP PO SCH ×5 (12:20→23:46)
[2017-08-21] MEDS ORDERED: MAGNESIUM SULFATE 32.48 MEQ in DEXTROSE 5% IN WATER 100 ML IV ONE (15:04)
--- NOTE | 2017-08-21 15:05 | Internal Med Progress Note ---
Medical - PN: Subj Patient information: Note initiated : 08/21/17 at 3:01 pm Service Date, if different from initiated Date: [] Patient: Dayanna Stephens a 56 y/o F admitted on 08/18/17 for Abd Pain/Small Bowel Obstruction. Chief Complaint: [] Interval history: Ms. Stephens is a 56 year old Female with h/o hypothyroidism, polyglandular syndrome, was admitted to the hospital with small bowel obstruction. The patient has an NG tube in place and is being managed conservatively by Surgery. Yesterday the patient was noted to be tachycardic, she was noted to be in sinus tachycardia, she was given metoprolol, which initially seemed to help her heart rate, The patients tachcycardia returned and the patient went back tachycardia. The patients HR was elevated from 130-150 range, EKG showed sinus tachycardia, metoprolol was repeated, and it seems even digoxin was given, the patient did not respond and remained tachycardic, Medicine was therefore consulted for further management. The patient has some abdominal pain, and intermittent headaches, beyond this denies any complaints, denies any chest pain, palpitations, shortness of breath , bowel or bladder complaints. The patient reports that she has tachycardia issues, which are intermittent, when ever she is in the hospital and it usually resolves by itself, sometimes with pain management. Repeat Set of labs showed rising wbc, stable Hb, her electrolytes showed low Calcium (chronically low), she has negative troponin, she remains in sinus tachycardia, mitchell was placed with good urine output. patiet has low TSH on labs , mg was 1.7, TG elevated > 500, rest of workup was unremarkable. CT Angio done to r/o PE is negative for PE as per night dalyk read, no acute intrapulmonary process. August 19 Patient seen examined NG tube is now out, patient calcium still low, replaced with IV calcium now that we can resume oral meds will resuem calcitriol. Will use highter doses if needed heart rate still elevated but improving. August 20 Pt seen examined, no acute issues, moving bowels well heart rate ok on po diet now, resumed home meds calcium still low, increased dose of rocalcitriol to 1mg tid for now add lyle carbonate supplement every 6 hrs recheck lyle again, replace IV and oral Pertinent ROS: Denies headache, dizziness Denies chest pain, palpitations Denies cough or shortness of breath Denies abdominal pain, nausea or vomiting. - Constitutional Vitals: Vital Signs Temp Pulse Resp BP Pulse Ox 98.2 F 88 18 130/82 98 08/21/17 12:00 08/21/17 12:00 08/21/17 12:00 08/21/17 12:00 08/21/17 12:00 Period Temp Pulse Resp BP Sys/Archuleta Pulse Ox Last 24 Hr 97.9 F-98.4 F 88-91 16-18 127-178/80-103 93-98 Intake and Output 08/21/17 08/21/17 08/21/17 05:59 13:59 21:59 Intake Total 1450 / 1450 630 / 630 Output Total 3050 / 3050 1000 / 1000 Balance -1600 / -1600 -370 / -370 Intake & Output: Intake & Output 08/21/17 08/21/17 08/21/17 05:59 13:59 21:59 Intake Total 1450 / 1450 630 / 630 Output Total 3050 / 3050 1000 / 1000 Balance -1600 / -1600 -370 / -370 Intake: IV 100 / 100 270 / 270 Oral 1350 / 1350 360 / 360 Output: Void Amount 750 / 750 1000 / 1000 Urine/Stool Mix 1350 / 1350 Stool 950 / 950 Other: Meal Lunch Percent of Meal Consumed 100% Feeding Ability Independent # Bowel Movements 1 Exam: Constitutional; Afebrile, cooperative, alert, not in distress. Eyes- No icterus, , No periorbital swelling Ears- Ext ear normal, hearing normal to conversation. Neck- Midline trachea, supple Respiratory system: Air Entry equal on both sides, No crackles or wheezing, no rhonchi. CVS- Rate rhythm regular, S1,S2 heard, no gallop, no rub. 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 Medical - PN: Obj Da - Labs CBC & Chem 7: 08/21/17 03:35 08/21/17 03:35 Labs: Abnormal Lab Results 08/21/17 08/21/17 08/21/17 09:20 03:35 03:35 WBC RBC 3.98 L Hgb 11.6 L Hct 34.6 L Gran % Lymph % (Auto) Gran # Lymph # (Auto) [place] # (Auto) 1.2 H ESR Potassium 3.2 L Anion Gap 17.0 H Glucose 142 H Calcium 5.5 L* Ionized Calcium [place] 0.65 L* Phosphorus Lactate Dehydrogenase 295 H NT-Pro-B Natriuret Pep Total Protein 5.8 L Albumin 3.0 L Globulin Triglycerides 237 H TSH Ur Specific [place] 08/20/17 08/20/17 08/19/17 04:00 04:00 03:20 WBC 11.6 H RBC Hgb Hct Gran % Lymph % (Auto) 14.6 L Gran # 8.6 H Lymph # (Auto) [place] # (Auto) 1.2 H ESR Potassium Anion Gap Glucose 161 H Calcium 6.5 L Ionized Calcium [place] Phosphorus Lactate Dehydrogenase 307 H NT-Pro-B Natriuret Pep Total Protein Albumin Globulin Triglycerides 252 H TSH 0.03 L Ur Specific [place] 08/19/17 08/19/17 08/19/17 03:20 03:20 03:20 WBC 15.9 H RBC 5.39 H Hgb 15.5 H Hct Gran % 84.0 H Lymph % (Auto) 7.9 L Gran # 13.4 H Lymph # (Auto) 1.3 L [place] # (Auto) 1.1 H ESR Potassium Anion Gap 18.0 H Glucose 214 H Calcium 7.6 L Ionized Calcium [place] Phosphorus 5.1 H Lactate Dehydrogenase 272 H NT-Pro-B Natriuret Pep 135.7 H Total Protein Albumin Globulin 3.9 H Triglycerides 557 H TSH Ur Specific [place] 08/19/17 08/18/17 01:05 10:49 WBC RBC Hgb Hct Gran % Lymph % (Auto) Gran # Lymph # (Auto) [place] # (Auto) ESR 63 H Potassium Anion Gap Glucose Calcium Ionized Calcium [place] Phosphorus Lactate Dehydrogenase NT-Pro-B Natriuret Pep Total Protein Albumin Globulin Triglycerides TSH Ur Specific [place] 1.045 H Meds: Medications Calcitriol (Rocaltrol) 1 mcg PO TID [facility] Last Admin: 08/21/17 10:14 Dose: 1 mcg Calcium Carbonate/Glycine (Calcium Carbonate) 1,000 mg PO Q4 [facility] Last Admin: 08/21/17 12:21 Dose: Not Given Ceftriaxone Sodium (Rocephin) 2 gm IV Q24H [facility] Last Admin: 08/21/17 10:13 Dose: 2 gm Duloxetine HCl (Cymbalta) 30 mg PO BID [facility] Last Admin: 08/21/17 10:14 Dose: 30 mg Hydromorphone HCl (Dilaudid) 1 mg IV Q2HP PRN PRN Reason: Pain Last Admin: 08/21/17 11:07 Dose: 1 mg Sodium Chloride (Sodium Chloride 0.9%) 1,000 mls @ 120 mls/hr IV .Q8H20M [facility] Last Admin: 08/20/17 19:58 Dose: 120 mls/hr Acetaminophen (Ofirmev) 1,000 mg in 100 mls @ 200 mls/hr IV Q6HP PRN PRN Reason: PAIN/FEVER > 101 Last Infusion: 08/20/17 13:20 Dose: Infused Metronidazole (Flagyl) 500 mg in 100 mls @ 100 mls/hr IV Q8H [facility] Last Infusion: 08/21/17 09:00 Dose: Infused [facility] Admin: 08/21/17 07:51 Dose: 250 mcg Methylnaltrexone [place] (Relistor) 12 mg SQ DAILY [facility] Stop: 08/22/17 09:01 Last Admin: 08/21/17 10:15 Dose: 12 mg Ondansetron HCl (Zofran) 4 mg IV Q4HP PRN PRN Reason: Nausea And Vomiting Last Admin: 08/21/17 08:37 Dose: 4 mg Pantoprazole Sodium (Protonix) 40 mg IV BIDAC [facility] Last Admin: 08/21/17 07:51 Dose: 40 mg Prednisone (Prednisone) 20 mg PO [facility] Last Admin: 08/21/17 07:51 Dose: 20 mg Promethazine HCl (Phenergan) 12.5 mg IV Q4HP PRN PRN Reason: Nausea And Vomiting Medical - PN: A/P - Time Spent With Patient Total time spent is greater than 50% in coordination of care (as documented) at patient's floor/unit and/or counseling patient: - Narrative A/P Narrative: A/P Sinus Tachycardia- Improving, secondary to GI process? infection, on zosym. switch to cipro and flagyl, monitor for now, Discomfort Pain- Prn pain meds as per surgery. ok for tylenol use. Hypothyroidism- resume levothyroxine. , Low TSH- t3,t4 normal, subclinical hyperthyroidism? pt needs to have repeat TSH done by pcp in 12 months to evaluate this. TSh can be low in Acute illness states which resolves spontaneously. Polyglandular syndrome/ Sarcoidosis: On home dose of prenisone now. Hypocalcemia: IV calcium, po vit D3 to resume, increase dose to 1mcg tid, add oral calcium carbonate, Hypomagnesemia-replace mg to keep mg > 2.0 Leucocytosis- possible gi source. switch zosyn to rocephin and flagyl, monitor. Medical - PN: Qual - Stroke Symptom Onset Unknown: No - VTE Deep Vein Thrombosis/Pulmonary Embolism Present on Admission: No
[2017-08-21] MEDS ORDERED: ACETAMINOPHEN 325 MG TABLET PO PRN (15:09)
[2017-08-21 18:22] LABS: Blood Urea Nitrogen 7 mg/dl (6-20)
[2017-08-21] MEDS: 0.9 % SODIUM CHLORIDE 1,000 ML IV SCH ×3 (20:15→21:18)
[2017-08-22] MEDS ORDERED: ONDANSETRON 4 MG/2 ML VIAL IV PRN (01:04)
[2017-08-22] MEDS ORDERED: PROMETHAZINE 25 MG/ML VIAL IV PRN (01:04)
[2017-08-22] MEDS ORDERED: ACETAMINOPHEN 325 MG TABLET PO PRN (01:04)
[2017-08-22] MEDS ORDERED: ACETAMINOPHEN 1,000 MG/100 ML BOTTLE IV PRN (01:04)
[2017-08-22] MEDS ORDERED: CALCIUM GLUCONATE 4.65 MEQ/10 ML VIAL IV ONE (01:04)
[2017-08-22] MEDS ORDERED: HYDROmorphone 2 MG/ML SYRINGE ONE (01:19)
[2017-08-22] MEDS: 0.9 % SODIUM CHLORIDE 1,000 ML IV SCH ×5 (03:02→19:00)
[2017-08-22] MEDS: CALCIUM CARBONATE 1,250 MG/5 ML ORAL.SUSP PO SCH ×6 (04:21→23:50)
[2017-08-22 06:05] LABS: Basophils # (Auto) 0 K/mcL (0.0-0.3); Basophils % (Auto) 0.5 % (0.0-2.0); Eosinophils # (Auto) 0.3 K/mcL (0.0-0.7); Granulocytes % (Auto) 49.5 % (38.0-78.0); Lymphocytes # (Auto) 2.3 K/mcL (1.5-4.8); Mean Cell Volume 87.7 fL (80.0-100.0); Mean Corpuscular HGB Conc 33.4 g/dL (31.0-36.0); Mean Corpuscular Hemoglobin 29.3 pg (26.0-34.0); Monocytes # (Auto) 0.7 K/mcL (0.1-0.9); Platelet Count 266 K/mcL (140-440); RBC 4.02 M/mcL (4.00-5.20); Red Cell Distribution Width 13.3 % (11.5-14.5)
[2017-08-22 06:35] LABS: ALT/SGPT 13 U/l (0-40); Albumin 3.1 gm/dL (3.2-5.2); Albumin/Globulin Ratio 1.1 (1.0-2.3); Alkaline Phosphatase 45 U/L (39-117); Bilirubin,Direct < 0.2 mg/dL (0.0-0.3); Blood Urea Nitrogen 4 mg/dl (6-20); Gamma Glutamyl Transpeptidase 14 U/L (5-36); Magnesium 1.8 mg/dL (1.6-2.5); Uric Acid 3.4 mg/dL (2.5-8.0)
[2017-08-22] MEDS: HYDROmorphone 2 MG/ML SYRINGE IV PRN ×4 (06:43→19:22)
[2017-08-22] MEDS: PANTOPRAZOLE 40 MG VIAL IV SCH ×2 (07:13→17:05)
[2017-08-22] MEDS: LEVOTHYROXINE 125 MCG TABLET PO SCH (07:14)
[2017-08-22] MEDS ORDERED: LEVOTHYROXINE 125 MCG TABLET PO SCH (07:30)
[2017-08-22] MEDS: DULoxetine 30 MG CAPSULE PO SCH ×2 (08:50→21:21)
[2017-08-22] MEDS: CALCITRIOL 0.25 MCG CAPSULE PO SCH ×3 (08:50→21:21)
[2017-08-22] MEDS: predniSONE 20 MG TABLET PO SCH (08:50)
[2017-08-22] MEDS ORDERED: METHYLNALTREXONE BROMIDE 12 MG/0.6 ML SYRINGE SQ SCH (09:00)
[2017-08-22] MEDS: cefTRIAXone 2 GM VIAL IV SCH (10:05)
[2017-08-22] MEDS: metroNIDAZOLE 500 MG/100 ML BAG IV SCH ×2 (15:23→21:21)
--- NOTE | 2017-08-22 17:14 | General Surgery Progress Note ---
Subjective Patient reports: feels better, pain is less, tolerating liquids well, flatus, bowel movement, afebrile Narrative: Note initiated : 08/22/17 at 5:10 pm Service Date, if different from initiated Date: [] Patient: Dayanna Stephens 56 y/o F admitted on 08/18/17 for Abd Pain/Small Bowel Obstruction. Chief Complaint: [Patient is doing much better. She continues to have multiple large liquid bowel movements and passed copious flatus. Her abdomen is much smaller and much softer on exam. Abdominal x-rays shows primary decompression of the small bowel but with major dilation of the colon which suggests chronic colonic pseudoobstruction. Patient states that she has had this problem in the past and was told that she would eventually need to have colectomy. Will monitor overnight and advance diet with plans for probable discharge in the morning.] Objective Temp Pulse Resp BP Pulse Ox 98.2 F 108 H 20 139/65 95 08/22/17 16:42 08/22/17 16:42 08/22/17 16:42 08/22/17 16:42 08/22/17 16:42 - Additional Data Intake & Output - Last 24 hours: Intake & Output 08/20/17 08/21/17 08/22/17 08/23/17 05:59 05:59 05:59 05:59 Intake Total 3046 / 3046 5370 / 5370 4690 / 4690 3540 / 3540 Output Total 2980 / 2980 4000 / 4000 5550 / 5550 3100 / 3100 Balance 66 / 66 1370 / 1370 -860 / -860 440 / 440 Weight 246 lb 8 oz 251 lb 8 oz 256 lb 256 lb - General physical appearance no distress, no pain - Eyes PERRL - ENT no congestion - Neck no venous distension - Respiratory normal respiratory effort, clear to auscultation - Cardiovascular Cardiovascular exam: Present: normal rate and rhythm, RRR, +S1, +S2. Absent: JVD, tachycardia - Abdomen soft, non tender, bowel sounds (Abdomen is distended but she has good active bowel sounds in her abdominal wall is nontender.) - Integumentary no rash, no growths, no abnormal pigmentation - Neurologic normal coordination, normal sensation - Musculoskeletal normal gait, normal posture - Psychiatric oriented to time, oriented to person, oriented to place, speech is normal, memory intact - Labs 08/23/17 04:28 08/23/17 04:28 Diabetes panel 08/21/17 08/22/17 Range/Units 15:19 04:45 Sodium 138 141 (133-145) mmol/L Potassium 3.7 3.4 (3.3-5.1) mmol/L Chloride 100 102 (96-108) mmol/L Carbon Dioxide 27 27 (22-30) mmol/L BUN 7 4 L (6-20) mg/dl Creatinine 0.7 0.5 L (0.6-1.1) mg/dl Glucose 182 H 110 H (70-105) mg/dL Calcium 7.1 L (8.6-10.4) mg/dl AST 14 (0-37) U/l ALT 13 (0-40) U/l Alkaline Phosphatase 45 (39-117) U/L Total Protein 5.9 (5.9-8.4) gm/dL Albumin 3.1 L (3.2-5.2) gm/dL Triglycerides 253 H (<150) mg/dl Calcium panel 08/21/17 08/21/17 08/22/17 Range/Units 15:19 18:28 04:45 Calcium 7.1 L (8.6-10.4) mg/dl Ionized Calcium Jeannie TNP 0.93 L Phosphorus 3.2 (2.7-4.5) mg/dL Albumin 3.1 L (3.2-5.2) gm/dL Pituitary panel 08/21/17 08/22/17 Range/Units 15:19 04:45 Sodium 138 141 (133-145) mmol/L Potassium 3.7 3.4 (3.3-5.1) mmol/L Chloride 100 102 (96-108) mmol/L Carbon Dioxide 27 27 (22-30) mmol/L BUN 7 4 L (6-20) mg/dl Creatinine 0.7 0.5 L (0.6-1.1) mg/dl Glucose 182 H 110 H (70-105) mg/dL Calcium 7.1 L (8.6-10.4) mg/dl Adrenal panel 08/21/17 08/22/17 Range/Units 15:19 04:45 Sodium 138 141 (133-145) mmol/L Potassium 3.7 3.4 (3.3-5.1) mmol/L Chloride 100 102 (96-108) mmol/L Carbon Dioxide 27 27 (22-30) mmol/L BUN 7 4 L (6-20) mg/dl Creatinine 0.7 0.5 L (0.6-1.1) mg/dl Glucose 182 H 110 H (70-105) mg/dL Calcium 7.1 L (8.6-10.4) mg/dl Total Bilirubin 0.2 (0.0-1.0) mg/dL AST 14 (0-37) U/l ALT 13 (0-40) U/l Alkaline Phosphatase 45 (39-117) U/L Total Protein 5.9 (5.9-8.4) gm/dL Albumin 3.1 L (3.2-5.2) gm/dL Assessment and Plan (1) Partial intestinal obstruction, unspecified as to cause Status: Resolved Assessment and plan: Relistor 12 mg subcu 2 more doses Check abdominal series in the morning Start full liquid diet Saline lock IV Current Visit: Yes (2) Constipation due to pain medication therapy Status: Acute Assessment and plan: Continue Relistor Current Visit: Yes (3) Myasthenia gravis Status: Acute Current Visit: No (4) Polyglandular autoimmune syndrome Status: Acute Current Visit: No (5) Sarcoidosis Status: Acute Current Visit: No (6) Achalasia and cardiospasm Status: Acute Current Visit: No (7) Hypothyroidism Status: Acute Current Visit: No (8) Myasthenia gravis Status: Acute Current Visit: No (9) Supraventricular tachycardia Status: Acute Assessment and plan: Significantly improved. Current Visit: Yes - Time Spent With Patient Total time spent is greater than 50% in coordination of care (as documented) at patient's floor/unit and/or counseling patient:
--- NOTE | 2017-08-22 17:21 | Internal Med Progress Note ---
Medical - PN: Subj Patient information: Note initiated : 08/22/17 at 5:19 pm Service Date, if different from initiated Date: [] Patient: Dayanna Stephens a 56 y/o F admitted on 08/18/17 for Abd Pain/Small Bowel Obstruction. Chief Complaint: [] Interval history: Ms. Stephens is a 56 year old Female with h/o hypothyroidism, polyglandular syndrome, was admitted to the hospital with small bowel obstruction. The patient has an NG tube in place and is being managed conservatively by Surgery. Yesterday the patient was noted to be tachycardic, she was noted to be in sinus tachycardia, she was given metoprolol, which initially seemed to help her heart rate, The patients tachcycardia returned and the patient went back tachycardia. The patients HR was elevated from 130-150 range, EKG showed sinus tachycardia, metoprolol was repeated, and it seems even digoxin was given, the patient did not respond and remained tachycardic, Medicine was therefore consulted for further management. The patient has some abdominal pain, and intermittent headaches, beyond this denies any complaints, denies any chest pain, palpitations, shortness of breath , bowel or bladder complaints. The patient reports that she has tachycardia issues, which are intermittent, when ever she is in the hospital and it usually resolves by itself, sometimes with pain management. Repeat Set of labs showed rising wbc, stable Hb, her electrolytes showed low Calcium (chronically low), she has negative troponin, she remains in sinus tachycardia, mitchell was placed with good urine output. patiet has low TSH on labs , mg was 1.7, TG elevated > 500, rest of workup was unremarkable. CT Angio done to r/o PE is negative for PE as per night dalyk read, no acute intrapulmonary process. August 20 Patient seen examined NG tube is now out, patient calcium still low, replaced with IV calcium now that we can resume oral meds will resuem calcitriol. Will use highter doses if needed heart rate still elevated but improving. August 21 Pt seen examined, no acute issues, moving bowels well heart rate ok on po diet now, resumed home meds calcium still low, increased dose of rocalcitriol to 1mg tid for now add lyle carbonate supplement every 6 hrs recheck lyle again, replace IV and oral August 22 Pts seen examined doing well, hr stable, passing gas, c al improved continue with high d ose of vit d 3 while inpatient and high calcium intake on d/c advised to double of the dose of calcitriol to 0.5mg tid till seen by her pcp Pertinent ROS: Denies headache, dizziness Denies chest pain, palpitations Denies cough or shortness of breath Denies abdominal pain, nausea or vomiting. - Constitutional Vitals: Vital Signs Temp Pulse Resp BP Pulse Ox 98.2 F 108 H 20 139/65 95 08/22/17 16:42 08/22/17 16:42 08/22/17 16:42 08/22/17 16:42 08/22/17 16:42 Period Temp Pulse Resp BP Sys/Archuleta Pulse Ox Last 24 Hr 97.0 F-98.6 F 72-108 16-20 135-164/65-89 92-95 Intake and Output 08/22/17 08/22/17 08/22/17 05:59 13:59 21:59 Intake Total 700 / 700 1740 / 1740 1800 / 1800 Output Total 1000 / 1000 2100 / 2100 1000 / 1000 Balance -300 / -300 -360 / -360 800 / 800 Weight 256 lb Patient Weight 08/23/17 05:59 Weight 256 lb Intake & Output: Intake & Output 08/22/17 08/22/17 08/22/17 05:59 13:59 21:59 Intake Total 700 / 700 1740 / 1740 1800 / 1800 Output Total 1000 / 1000 2100 / 2100 1000 / 1000 Balance -300 / -300 -360 / -360 800 / 800 Weight 256 lb Intake: IV 1000 / 1000 Sodium Chloride 0.9% 1,000 ml @ 1000 / 1000 120 mls/hr IV .Q8H20M [facility] Rx#: [id number] Oral 700 / 700 1740 / 1740 800 / 800 Output: Void Amount 1000 / 1000 2100 / 2100 1000 / 1000 Other: Meal Lunch Percent of Meal Consumed 100% # Voids 1 # Bowel Movements 1 1 1 Exam: Constitutional; Afebrile, cooperative, alert, not in distress. Eyes- No icterus, , No periorbital swelling Ears- Ext ear normal, hearing normal to conversation. Neck- Midline trachea, supple Respiratory system: Air Entry equal on both sides, No crackles or wheezing, no rhonchi. CVS- Rate rhythm regular, S1,S2 heard, no gallop, no rub. Abdomen- Soft nontender abdomen, no organomegaly, no tenderness, no guarding or rigidity, REGULATORY SPECIALIST- AOOx3, moving all extremities, no gross focal deficit noted. Medical - PN: Obj Da - Labs CBC & Chem 7: 08/22/17 04:45 08/22/17 04:45 Labs: Abnormal Lab Results 08/22/17 08/22/17 08/21/17 04:45 04:45 18:28 WBC RBC Hgb 11.8 L Hct 35.3 L Lymph % (Auto) Gran # Bureau # (Auto) Potassium Anion Gap BUN 4 L Creatinine 0.5 L Glucose 110 H Calcium 7.1 L Ionized Calcium Jeannie 0.93 L Lactate Dehydrogenase 287 H Total Protein Albumin 3.1 L Triglycerides 253 H 08/21/17 08/21/17 08/21/17 15:19 09:20 03:35 WBC RBC Hgb Hct Lymph % (Auto) Gran # Bureau # (Auto) Potassium 3.2 L Anion Gap 17.0 H BUN Creatinine Glucose 182 H 142 H Calcium 5.5 L* Ionized Calcium Jeannie 0.65 L* Lactate Dehydrogenase 295 H Total Protein 5.8 L Albumin 3.0 L Triglycerides 237 H 08/21/17 08/20/17 08/20/17 03:35 04:00 04:00 WBC 11.6 H RBC 3.98 L Hgb 11.6 L Hct 34.6 L Lymph % (Auto) 14.6 L Gran # 8.6 H Bureau # (Auto) 1.2 H 1.2 H Potassium Anion Gap BUN Creatinine Glucose 161 H Calcium 6.5 L Ionized Calcium Jeannie Lactate Dehydrogenase 307 H Total Protein Albumin Triglycerides 252 H Meds: Medications Acetaminophen (Tylenol) 650 mg PO Q4-6HP PRN PRN Reason: PAIN/FEVER > 101 Calcitriol (Rocaltrol) 1 mcg PO TID [facility] Last Admin: 08/22/17 15:22 Dose: 1 mcg Calcium Carbonate/Glycine (Calcium Carbonate) 1,000 mg PO Q4 [facility] Last Admin: 08/22/17 15:45 Dose: 1,000 mg Ceftriaxone Sodium (Rocephin) 2 gm IV Q24H [facility] Last Admin: 08/22/17 10:05 Dose: 2 gm Duloxetine HCl (Cymbalta) 30 mg PO BID [facility] Last Admin: 08/22/17 08:50 Dose: 30 mg Hydromorphone HCl (Dilaudid) 1 mg IV Q2HP PRN PRN Reason: Pain Last Admin: 08/22/17 15:45 Dose: 1 mg Metronidazole (Flagyl) 500 mg in 100 mls @ 100 mls/hr IV Q8H [facility] Last Admin: 08/22/17 15:23 Dose: 100 mls/hr Acetaminophen (Ofirmev) 1,000 mg in 100 mls @ 200 mls/hr IV Q6HP PRN PRN Reason: PAIN/FEVER > 101 Levothyroxine Sodium (Synthroid) 250 mcg PO QAMAC [facility] Last Admin: 08/22/17 07:14 Dose: 250 mcg Ondansetron HCl (Zofran) 4 mg IV Q4HP PRN PRN Reason: Nausea And Vomiting Pantoprazole Sodium (Protonix) 40 mg IV BIDAC [facility] Last Admin: 08/22/17 17:05 Dose: 40 mg Prednisone (Prednisone) 20 mg PO QAC [facility] Last Admin: 08/22/17 08:50 Dose: 20 mg Promethazine HCl (Phenergan) 12.5 mg IV Q4HP PRN PRN Reason: Nausea And Vomiting Medical - PN: A/P - Time Spent With Patient Total time spent is greater than 50% in coordination of care (as documented) at patient's floor/unit and/or counseling patient: - Narrative A/P Narrative: A/P Sinus Tachycardia- Improving, secondary to GI process? infection, on zosym. switch to cipro and flagyl, monitor for now, Discomfort Pain- stable Hypothyroidism- resume levothyroxine. , Low TSH- t3,t4 normal, subclinical hyperthyroidism? pt needs to have repeat TSH done by pcp in 12 months to evaluate this. TSh can be low in Acute illness states which resolves spontaneously. Polyglandular syndrome/ Sarcoidosis: On home dose of prenisone now. Hypocalcemia: oral calcium, vit calcitiriol 1mcg tid , calcium improving, monitor. Hypomagnesemia-replace mg to keep mg > 2.0 Leucocytosis- possible gi source. switch zosyn to rocephin and flagyl, monitor. much better. Medical - PN: Qual - Stroke Symptom Onset Unknown: No - VTE Deep Vein Thrombosis/Pulmonary Embolism Present on Admission: No
[2017-08-23] MEDS: CALCIUM CARBONATE 1,250 MG/5 ML ORAL.SUSP PO SCH ×3 (03:04→12:18)
[2017-08-23] MEDS: HYDROmorphone 2 MG/ML SYRINGE IV PRN ×4 (03:05→13:08)
[2017-08-23] MEDS: metroNIDAZOLE 500 MG/100 ML BAG IV SCH ×2 (05:09→14:09)
[2017-08-23 05:46] LABS: Basophils # (Auto) 0 K/mcL (0.0-0.3); Basophils % (Auto) 0.4 % (0.0-2.0); Eosinophils # (Auto) 0.2 K/mcL (0.0-0.7); Eosinophils % (Auto) 3.2 % (0.0-7.0); Granulocytes % (Auto) 50.9 % (38.0-78.0); Lymphocytes # (Auto) 2.5 K/mcL (1.5-4.8); Lymphocytes % (Auto) 35.9 % (15.5-49.0); Mean Cell Volume 87.8 fL (80.0-100.0); Mean Corpuscular HGB Conc 33.9 g/dL (31.0-36.0); Mean Corpuscular Hemoglobin 29.8 pg (26.0-34.0); Monocytes # (Auto) 0.7 K/mcL (0.1-0.9); Monocytes % (Auto) 9.6 % (1.0-12.0); Platelet Count 264 K/mcL (140-440); RBC 3.92 M/mcL (4.00-5.20); Red Cell Distribution Width 13.2 % (11.5-14.5)
[2017-08-23 06:03] LABS: ALT/SGPT 17 U/l (0-40); Albumin 2.9 gm/dL (3.2-5.2); Alkaline Phosphatase 43 U/L (39-117); Bilirubin,Direct < 0.2 mg/dL (0.0-0.3); Blood Urea Nitrogen 4 mg/dl (6-20); Gamma Glutamyl Transpeptidase 11 U/L (5-36); Magnesium 1.5 mg/dL (1.6-2.5); Uric Acid 3.8 mg/dL (2.5-8.0)
[2017-08-23] MEDS ORDERED: MAGNESIUM SULFATE 2 GM/50 ML BAG IV ONE (06:22)
[2017-08-23] MEDS: PANTOPRAZOLE 40 MG VIAL IV SCH (06:54)
[2017-08-23] MEDS: LEVOTHYROXINE 125 MCG TABLET PO SCH (06:55)
--- NOTE | 2017-08-23 07:49 | XRay Report ---
CLINICAL INFORMATION: Bowel obstruction. Follow-up TECHNIQUE: Supine and upright abdomen COMPARISON: Previous plain film examinations dated 08/19/2017, 08/18/2017, 07/07/2017 FINDINGS: Dilated gas-filled small bowel is markedly improved. There continues to be colonic gas. There is distended colon in the left upper quadrant. Cross-sectional diameter measures 9 cm. Upright examination is suspicious for possible subtle pneumoperitoneum. This is not definite but further evaluation is recommended. High quality upright chest x-ray may be helpful. Abdominal and pelvic CT scan could be considered. No pneumatosis. No biliary or portal venous gas. IMPRESSION: 1. Improved bowel gas pattern. Persistent dilated colon. Colon at the splenic flexure measures approximately 9 cm in diameter 2. Possible subtle pneumoperitoneum. Further evaluation indicated. Interpreted and Authenticated by: All Cormier 08/23/17
[2017-08-23] MEDS: predniSONE 20 MG TABLET PO SCH (07:58)
[2017-08-23] MEDS ORDERED: POTASSIUM CHLORIDE 20 MEQ PACKET PO SCH (08:00)
--- NOTE | 2017-08-23 08:44 | XRay Report ---
INDICATION: Possible pneumoperitoneum TECHNIQUE: PA and lateral upright chest x-ray COMPARISON: Abdominal series dated 08/23/2017 FINDINGS:Previous upright abdomen was suspicious for pneumoperitoneum. Repeat upright chest x-ray is negative. There is no free air beneath either hemidiaphragm. There is no pneumoperitoneum. There continues to be prominent gas-filled colon at the splenic flexure. No pulmonary parenchymal consolidation. No congestive heart failure. Previous median sternotomy. IMPRESSION: Negative examination for pneumoperitoneum Interpreted and Authenticated by: All Cormier 08/23/17
[2017-08-23] MEDS: cefTRIAXone 2 GM VIAL IV SCH (09:37)
[2017-08-23] MEDS: DULoxetine 30 MG CAPSULE PO SCH (09:37)
[2017-08-23] MEDS: CALCITRIOL 0.25 MCG CAPSULE PO SCH (09:37)
--- NOTE | 2017-08-23 14:07 | Discharge Summary ---
Providers - Providers Patient information: Note initiated : 08/23/17 at 2:01 pm Service Date, if different from initiated Date: [] Patient: Dayanna Stephens 56 y/o F admitted on 08/18/17 for Abd Pain/Small Bowel Obstruction. Chief Complaint: [] Date of admission: 08/18/17 Discharge date: 08/23/17 Attending physician: Bertha Currie hospitalist Primary care physician: Douglas Haque Hospitalization Hospital course: 56-year-old female with suspected partial intestinal obstruction who was admitted for treatment. She awakened on the day of admission with bloating sweating nausea and vomiting. She also had severe abdominal pain. Patient had a similar episode in June which resolved spontaneously. She takes codeine 4 times daily on a daily basis. It was suspected that the patient had narcotic induced adynamic ileus with pseudoobstruction. She was noted to have very large hard fecal balls in her rectum and distal colon on exam. Manual disimpaction was done and she received saline and MiraLAX enemas with initial good results. She then received MiraLAX p.o. and had multiple large bowel movements of the next few days. Though her colon is now empty it is still massively dilated and has the appearance of colonic pseudoobstruction. Patient is advised of this and she states that she is been told this in the past and was informed previously that she may have to have colectomy. She had sinus tachycardia shortly after admission and this was monitored closely. It was felt to be related to her severe pain associated with her colonic dilation. As her severe constipation resolved her tachycardia gradually resolved. She was followed by hospitalist during this admission and they managed her hypocalcemia which is a chronic problem. Discharge diagnosis: Colonic pseudoobstruction Secondary discharge diagnosis: Narcotic induced constipation Polyglandular autoimmune syndrome Sarcoidosis Hypothyroidism History of myasthenia gravis Reason for admission: Severe abdominal pain with nausea and vomiting Procedures: None Pertinent studies/significant findings: CT of abdomen and pelvis with contrast Complications: None Exam Temp Pulse Resp BP Pulse Ox 97.1 F 75 20 164/90 94 08/23/17 11:54 08/23/17 04:00 08/23/17 11:54 08/23/17 11:54 08/23/17 11:54 - General physical appearance well developed, well nourished, no distress - Eyes PERRL, normal ocular movement - ENT normal pinna, normal nares, normal mucosa, no hearing loss, no congestion - Head Head exam IM: Present: atraumatic, normocephalic - Neck no masses, no bruits, trachea midline, no lymphadectomy, no venous distension - Cardiovascular Cardiovascular exam IM: Present: normal rate and rhythm - Respiratory normal expansion, normal respiratory effort, clear to percussion, clear to auscultation - Abdomen Abdomen: Present: soft, non tender, bowel sounds, distended (Distended but soft with good active bowel sounds; no tenderness noted) Hernia: Present: none - Genitourinary Present: normal external genitalia - Integumentary Present: no rash, no growths, no abnormal pigmentation - Neurologic Present: normal coordination, normal sensation - Musculoskeletal Present: normal gait, normal posture - Psychiatric Present: oriented to time, oriented to person, oriented to place, speech is normal, memory intact Discharge Plan - Patient/Caregiver Discharge Instructions Activity: increase activity as tolerated Diet: Regular Diet, High Fiber Additional Instructions: Take MiraLAX 17 g in 8 ounces of liquid 4 times daily Follow-up with primary care physician as needed - Follow up Plan Follow up with: Douglas Haque MD [Primary Care Provider] - Disposition: Home, Self-Care Prognosis: Good Rehab Potential: Good I certify that the patient requires SNF services.: No Overall status at discharge: patient is back to baseline Pending Studies Resuscitation Status Full Code Diet Regular Diet Start SatAug 23 09 Calcitriol (Rocaltrol) 1 mcg PO TID [facility] Last Admin: 08/23/17 09:37 Dose: 1 mcg Admin: 08/22/17 21:21 Dose: 1 mcg Admin: 08/22/17 15:22 Dose: 1 mcg Admin: 08/22/17 08:50 Dose: 1 mcg Calcium Carbonate/Glycine (Calcium Carbonate) 1,000 mg PO Q4 [facility] Last Admin: 08/23/17 12:18 Dose: 1,000 mg Admin: 08/23/17 08:01 Dose: 1,000 mg Admin: 08/23/17 03:04 Dose: 1,000 mg Admin: 08/22/17 23:50 Dose: 1,000 mg Admin: 08/22/17 19:23 Dose: 1,000 mg Admin: 08/22/17 15:45 Dose: 1,000 mg Admin: 08/22/17 12:35 Dose: 1,000 mg Admin: 08/22/17 08:50 Dose: 1,000 mg Admin: 08/22/17 04:21 Dose: 1,000 mg Ceftriaxone Sodium (Rocephin) 2 gm IV Q24H [facility] Last Admin: 08/23/17 09:37 Dose: 2 gm Admin: 08/22/17 10:05 Dose: 2 gm Duloxetine HCl (Cymbalta) 30 mg PO BID [facility] Last Admin: 08/23/17 09:37 Dose: 30 mg Admin: 08/22/17 21:21 Dose: 30 mg Admin: 08/22/17 08:50 Dose: 30 mg Hydromorphone HCl (Dilaudid) 1 mg IV Q2HP PRN PRN Reason: Pain Last Admin: 08/23/17 13:08 Dose: 1 mg Admin: 08/23/17 09:37 Dose: 1 mg Admin: 08/23/17 06:51 Dose: 1 mg Admin: 08/23/17 03:05 Dose: 1 mg Admin: 08/22/17 19:22 Dose: 1 mg Admin: 08/22/17 15:45 Dose: 1 mg Admin: 08/22/17 10:21 Dose: 1 mg Admin: 08/22/17 06:43 Dose: 1 mg Metronidazole (Flagyl) 500 mg in 100 mls @ 100 mls/hr IV Q8H [facility] Last Admin: 08/23/17 05:09 Dose: 100 mls/hr Infusion: 08/22/17 22:21 Dose: 100 mls/hr Admin: 08/22/17 21:21 Dose: 100 mls/hr Infusion: 08/22/17 16:23 Dose: 100 mls/hr Admin: 08/22/17 15:23 Dose: 100 mls/hr Levothyroxine Sodium (Synthroid) 250 mcg PO QAMAC [facility] Last Admin: 08/23/17 06:55 Dose: 250 mcg Admin: 08/22/17 07:14 Dose: 250 mcg Pantoprazole Sodium (Protonix) 40 mg IV BIDAC [facility] Last Admin: 08/23/17 06:54 Dose: 40 mg Admin: 08/22/17 17:05 Dose: 40 mg Admin: 08/22/17 07:13 Dose: 40 mg Potassium Chloride (Klor-Con) 40 meq PO [facility] Last Admin: 08/23/17 07:58 Dose: 40 meq Prednisone (Prednisone) 20 mg PO [facility] Last Admin: 08/23/17 07:58 Dose: 20 mg Admin: 08/22/17 08:50 Dose: 20 mg Shift Summary 08/23/17 03:41 Shift Summary by Katie London&Ox4. VSS. Full liquid diet. Up ad rainer to BR. 20 gauge to REAL is SL. 3 loose BM 's this shift. Received Dilaudid 1mg for right hip pain x2. Plan is for patient to have x-ray today and may possibly d/c home. Initialized on 08/23/17 03:41 - END OF NOTE
--- NOTE | 2017-08-23 14:47 | Internal Med Progress Note ---
Medical - PN: Subj Patient information: Note initiated : 08/23/17 at 2:44 pm Service Date, if different from initiated Date: [] Patient: Dayanna Stephens a 56 y/o F admitted on 08/18/17 for Abd Pain/Small Bowel Obstruction. Chief Complaint: [] Interval history: Ms. Stephens is a 56 year old Female with h/o hypothyroidism, polyglandular syndrome, was admitted to the hospital with small bowel obstruction. The patient has an NG tube in place and is being managed conservatively by Surgery. Yesterday the patient was noted to be tachycardic, she was noted to be in sinus tachycardia, she was given metoprolol, which initially seemed to help her heart rate, The patients tachcycardia returned and the patient went back tachycardia. The patients HR was elevated from 130-150 range, EKG showed sinus tachycardia, metoprolol was repeated, and it seems even digoxin was given, the patient did not respond and remained tachycardic, Medicine was therefore consulted for further management. The patient has some abdominal pain, and intermittent headaches, beyond this denies any complaints, denies any chest pain, palpitations, shortness of breath , bowel or bladder complaints. The patient reports that she has tachycardia issues, which are intermittent, when ever she is in the hospital and it usually resolves by itself, sometimes with pain management. Repeat Set of labs showed rising wbc, stable Hb, her electrolytes showed low Calcium (chronically low), she has negative troponin, she remains in sinus tachycardia, mitchell was placed with good urine output. patiet has low TSH on labs , mg was 1.7, TG elevated > 500, rest of workup was unremarkable. CT Angio done to r/o PE is negative for PE as per night dalyk read, no acute intrapulmonary process. August 20 Patient seen examined NG tube is now out, patient calcium still low, replaced with IV calcium now that we can resume oral meds will resuem calcitriol. Will use highter doses if needed heart rate still elevated but improving. August 21 Pt seen examined, no acute issues, moving bowels well heart rate ok on po diet now, resumed home meds calcium still low, increased dose of rocalcitriol to 1mg tid for now add lyle carbonate supplement every 6 hrs recheck lyle again, replace IV and oral August 22 Pts seen examined doing well, hr stable, passing gas, c al improved continue with high d ose of vit d 3 while inpatient and high calcium intake on d/c advised to double of the dose of calcitriol to 0.5mg tid till seen by her pcp august 23 patient seen examined some issue on abdomen x ray today with regards to pneumoperitoneu, x ray chest is neg pt otherwise doing well lyle levels normal today plan for d/c from surgery pt advised to take 0.5mcg calcitriol for 1 week till she is seen by her PCP. Pertinent ROS: Denies headache, dizziness Denies chest pain, palpitations Denies cough or shortness of breath Denies abdominal pain, nausea or vomiting. - Constitutional Vitals: Vital Signs Temp Pulse Resp BP Pulse Ox 98.3 F 92 H 16 144/88 91 08/23/17 14:19 08/23/17 14:19 08/23/17 14:19 08/23/17 14:19 08/23/17 14:19 Period Temp Pulse Resp BP Sys/[place]ta Pulse Ox Last 24 Hr 97.1 F-98.3 F 62-108 14-20 139-164/65-90 90-95 Intake and Output 08/23/17 08/23/17 08/23/17 05:59 13:59 21:59 Intake Total 1640 / 1640 1660 / 1660 Output Total 2200 / 2200 3000 / 3000 Balance -560 / -560 -1340 / -1340 Intake & Output: Intake & Output 08/23/17 08/23/17 08/23/17 05:59 13:59 21:59 Intake Total 1640 / 1640 1660 / 1660 Output Total 2200 / 2200 3000 / 3000 Balance -560 / -560 -1340 / -1340 Intake: IV 100 / 100 100 / 100 Oral 1540 / 1540 1560 / 1560 Output: Void Amount 2200 / 2200 3000 / 3000 Other: Meal Nourishment/Supplement Lunch Percent of Meal Consumed 100% 100% Feeding Ability Independent Independent # Voids 1 # Bowel Movements 1 1 Exam: Constitutional; Afebrile, cooperative, alert, not in distress. Eyes- No icterus, , No periorbital swelling Ears- Ext ear normal, hearing normal to conversation. Neck- Midline trachea, supple Respiratory system: Air Entry equal on both sides, No crackles or wheezing, no rhonchi. CVS- Rate rhythm regular, S1,S2 heard, no gallop, no rub. 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 Medical - PN: Obj Da - Labs CBC & Chem 7: 08/23/17 04:28 08/23/17 04:28 Labs: Abnormal Lab Results 08/23/17 08/23/17 08/22/17 04:28 04:28 04:45 RBC 3.92 L Hgb 11.7 L Hct 34.4 L [place] # (Auto) Potassium Anion Gap BUN 4 L 4 L Creatinine 0.5 L Glucose 120 H 110 H Calcium 7.7 L 7.1 L Ionized Calcium Jeannie Magnesium 1.5 L Lactate Dehydrogenase 278 H 287 H Total Protein 5.7 L Albumin 2.9 L 3.1 L Triglycerides 253 H 08/22/17 08/21/17 08/21/17 04:45 18:28 15:19 RBC Hgb 11.8 L Hct 35.3 L [place] # (Auto) Potassium Anion Gap BUN Creatinine Glucose 182 H Calcium Ionized Calcium [place] 0.93 L Magnesium Lactate Dehydrogenase Total Protein Albumin Triglycerides 08/21/17 08/21/17 08/21/17 09:20 03:35 03:35 RBC 3.98 L Hgb 11.6 L Hct 34.6 L [place] # (Auto) 1.2 H Potassium 3.2 L Anion Gap 17.0 H BUN Creatinine Glucose 142 H Calcium 5.5 L* Ionized Calcium Jeannie 0.65 L* Magnesium Lactate Dehydrogenase 295 H Total Protein 5.8 L Albumin 3.0 L Triglycerides 237 H Meds: Medications Acetaminophen (Tylenol) 650 mg PO Q4-6HP PRN PRN Reason: PAIN/FEVER > 101 Calcitriol (Rocaltrol) 1 mcg PO TID [facility] Last Admin: 08/23/17 09:37 Dose: 1 mcg Calcium Carbonate/Glycine (Calcium Carbonate) 1,000 mg PO Q4 [facility] Last Admin: 08/23/17 12:18 Dose: 1,000 mg Ceftriaxone Sodium (Rocephin) 2 gm IV Q24H [facility] Last Admin: 08/23/17 09:37 Dose: 2 gm Duloxetine HCl (Cymbalta) 30 mg PO BID [facility] Last Admin: 08/23/17 09:37 Dose: 30 mg Hydromorphone HCl (Dilaudid) 1 mg IV Q2HP PRN PRN Reason: Pain Last Admin: 08/23/17 13:08 Dose: 1 mg Metronidazole (Flagyl) 500 mg in 100 mls @ 100 mls/hr IV Q8H [facility] Last Admin: 08/23/17 14:09 Dose: 100 mls/hr Acetaminophen (Ofirmev) 1,000 mg in 100 mls @ 200 mls/hr IV Q6HP PRN PRN Reason: PAIN/FEVER > 101 [facility] Admin: 08/23/17 06:55 Dose: 250 mcg Ondansetron HCl (Zofran) 4 mg IV Q4HP PRN PRN Reason: Nausea And Vomiting Pantoprazole Sodium (Protonix) 40 mg IV BIDAC [facility] Last Admin: 08/23/17 06:54 Dose: 40 mg Potassium Chloride (Klor-Con) 40 meq PO [facility] Last Admin: 08/23/17 07:58 Dose: 40 meq Prednisone (Prednisone) 20 mg PO [facility] Last Admin: 08/23/17 07:58 Dose: 20 mg Promethazine HCl (Phenergan) 12.5 mg IV Q4HP PRN PRN Reason: Nausea And Vomiting Medical - PN: A/P - Time Spent With Patient Total time spent is greater than 50% in coordination of care (as documented) at patient's floor/unit and/or counseling patient: - Narrative A/P Narrative: A/P Sinus Tachycardia- resolved Hypothyroidism- resume levothyroxine. , Low TSH- likely related to acute state, outpatient follow up with pcp Polyglandular syndrome/ Sarcoidosis: On home dose of prenisone now. Hypocalcemia: oral calcium, vit calcitiriol 1mcg tid , calcium improving, monitor. pt to take her double the dose of calcitriol and see her pcp in 1 week after discharge. Pt verbazlied understanding for same. Educated to be compliant with her calcium intake. Hypomagnesemia-replace mg to keep mg > 2.0 Medical - PN: Qual - Stroke Symptom Onset Unknown: No - VTE Deep Vein Thrombosis/Pulmonary Embolism Present on Admission: No
== END 2017-08-23 15:10 | disposition home or self-care (01) | DRG 391 ==
LOC: ED 10:25 → MEDSUR 15:15 → ICU 08-19 04:10 → MEDSUR 08-22 00:34
PROVIDERS: ADMIT Family Medicine Adult Medicine; ATTEND Family Medicine Adult Medicine

== ENCOUNTER 2017-09-18 03:46 | Inpatient (IN) ==
[2017-09-18] MEDS ORDERED: IOPAMIDOL 100 ML BOTTLE IJ ONE (03:47)
[2017-09-18] MEDS ORDERED: 0.9 % SODIUM CHLORIDE 1,000 ML IV ONE (04:20)
[2017-09-18] MEDS ORDERED: ONDANSETRON 4 MG/2 ML VIAL IV ONE ×2 (04:31→09:30)
[2017-09-18] MEDS: HYDROmorphone 2 MG/ML SYRINGE IV PRN ×9 (04:49→23:00)
[2017-09-18 05:22] LABS: Basophils # (Auto) 0 K/mcL (0.0-0.3); Basophils % (Auto) 0.5 % (0.0-2.0); Eosinophils # (Auto) 0.5 K/mcL (0.0-0.7); Eosinophils % (Auto) 6.4 % (0.0-7.0); Granulocytes % (Auto) 49.3 % (38.0-78.0); Lymphocytes # (Auto) 2.9 K/mcL (1.5-4.8); Lymphocytes % (Auto) 34.6 % (15.5-49.0); Mean Cell Volume 87.4 fL (80.0-100.0); Mean Corpuscular HGB Conc 33.3 g/dL (31.0-36.0); Mean Corpuscular Hemoglobin 29.1 pg (26.0-34.0); Monocytes # (Auto) 0.8 K/mcL (0.1-0.9); Monocytes % (Auto) 9.2 % (1.0-12.0); Platelet Count 274 K/mcL (140-440); RBC 4.49 M/mcL (4.00-5.20); Red Cell Distribution Width 13.5 % (11.5-14.5)
[2017-09-18 05:30] LABS: ALT/SGPT 15 U/l (0-40); Albumin/Globulin Ratio 1.4 (1.0-2.3); Alkaline Phosphatase 55 U/L (39-117); Blood Urea Nitrogen 18 mg/dl (6-20); Lipase 11 U/L (7-60)
[2017-09-18 06:30] LABS: Appearance,Urine CLEAR; Bilirubin,Urine NEG (NEG); Color,Urine YELLOW; Glucose,Urine (UA) NEGATIVE (NEG); Leukocyte Esterase,Urine NEG /uL (NEG); Nitrate,Urine NEG (NEG); Protein,Urine NEG (NEG); Urine Blood NEG mg/dL (<0.03); Urobilinogen,Urine NEG (NEG)
--- NOTE | 2017-09-18 07:03 | Emergency Department Note ---
Abdominal Pain HPI - General Chief Complaint: Abdominal Pain Stated Complaint: lower abd. pain Time Seen by Provider: 09/18/17 07:00 Source: patient Mode of arrival: wheelchair - History of Present Illness HPI Narrative: This patient has had low abdominal pain since Saturday night and not passing gas with some nausea. He has long history of multiple small bowel obstructions and UTIs. He says this pain feels a little lower than the usual. - Related Data Home Medications Medication Instructions Recorded Confirmed Calcitriol 0.25 mcg PO TID 11/30/16 08/18/17 DULoxetine [Cymbalta] 30 mg PO BID 11/30/16 08/18/17 Linaclotide [Linzess] 72 mcg PO DAILY 11/30/16 08/18/17 Nitroglycerin 0.4 mg PO PRN PRN 11/30/16 08/18/17 Omeprazole 20 mg PO BID 11/30/16 08/18/17 Levothyroxine [Synthroid] 250 mcg PO QAMAC 08/20/17 08/20/17 Acetaminophen W/Codeine #3 2 cap PO Q4-6HP PRN 09/18/17 09/18/17 [Tylenol #3] Calcium Carbonate [Calcium] 1,200 mg PO BID 09/18/17 09/18/17 Polyethylene Glycol 3350 [Miralax] 17 gm PO BID 09/18/17 09/18/17 Previous Rx's Medication Instructions Recorded predniSONE [Pred[facility]one] [facility] [place] [facility] 05/18/16 Allergies Allergy/AdvReac Type Severity Reaction Status Date / Time Sulfa (Sulfonamide Allergy Severe Anaphylaxis Verified 11/29/16 12:46 Antibiotics) metoclopramide [From Reglan] AdvReac Mild Anxiety Verified 11/29/16 20:03 steri strips Allergy Severe Blister Uncoded 06/12/15 15:48 Review of Systems All systems ED: reviewed and negative except as stated. Abdominal Pain PMH - Past Medical History PMF Narrative: Medical History Foot sprain (Acute) Anaphylaxis (Acute) Adverse reaction to drug (Acute) Severe sepsis (Acute) Pyelonephritis (Acute) Pneumonia (Acute) Myasthenia gravis (Acute) Polyglandular autoimmune syndrome (Acute) Sarcoidosis (Acute) Achalasia and cardiospasm (Acute) Hypothyroidism (Acute) UTI (urinary tract infection) (Acute) Infiltrate of lung present on imaging of chest (Acute) Small bowel obstruction, partial (Acute) Pancreatitis (Acute) Myasthenia gravis (Acute) Volume depletion (Acute) Partial intestinal obstruction, unspecified as to cause (Resolved) Constipation due to pain medication therapy (Acute) Supraventricular tachycardia (Acute) Medical history: Reports: COPD, other (connective tissue diseases including Sjogren's, sarcoidosis, myasthenia gravis. achalasia) Family history: Reports: non-contributory - Social History Smoking status: Never smoker Alcohol use: Reports: None Drug use: Reports: none Physical Exam Limitations: no limitations General appearance: alert Head: atraumatic, normocephalic Eye: Present: normal appearance ENT: normal exam Neck: Present: normal inspection Chest: Present: normal inspection Respiratory: Present: normal lung sounds bilaterally Cardiovascular: Present: regular rate, normal rhythm, normal heart sounds Abdominal: Present: soft, distention, tenderness, hyperactive bowel sounds. Absent: guarding, rebound, rigidity Abdominal tenderness: Present: diffuse, mild Neurological: Present: alert Psychiatric: Present: normal affect, normal mood Skin: Present: warm, dry, intact Course Vital Signs Temperature 97.8 F 09/18/17 03:47 Pulse Rate 101 H 09/18/17 03:47 Respiratory Rate 20 09/18/17 03:47 Blood Pressure 159/96 09/18/17 03:47 Pulse Oximetry (%) 96 09/18/17 03:47 Temperature 97.8 F 09/18/17 03:47 Pulse Rate 85 09/18/17 05:05 Respiratory Rate 20 09/18/17 03:47 Blood Pressure 139/90 09/18/17 05:01 Pulse Oximetry (%) 95 09/18/17 07:38 Abdominal Pain - MDM Narrative Medical decision making narrative: CT scan shows a sigmoid volvulus. I discussed the case with Dr. Currie the surgeon the patient will be admitted to the hospital. - Lab Data Lab results reviewed: Yes I reviewed the patient's lab results. Result diagrams: 09/18/17 04:30 09/18/17 04:30 Lab Results 09/18/17 09/18/17 09/18/17 Range/Units 04:30 04:30 05:50 WBC 8.3 (4.5-11.0) K/mcL RBC 4.49 (4.00-5.20) M/mcL Hgb 13.1 (12.0-15.0) g/dL Hct 39.3 (36.0-48.0) % MCV 87.4 (80.0-100.0) fL MCH 29.1 (26.0-34.0) pg MCHC 33.3 (31.0-36.0) g/dL RDW 13.5 (11.5-14.5) % Plt Count 274 (140-440) K/mcL MPV 7.9 (7.4-10.4) fL Gran % 49.3 (38.0-78.0) % Lymph % (Auto) 34.6 (15.5-49.0) % [place] % (Auto) 9.2 (1.0-12.0) % Eos % (Auto) 6.4 (0.0-7.0) % Baso % (Auto) 0.5 (0.0-2.0) % Gran # 4.1 (1.8-8.0) K/mcL Lymph # (Auto) 2.9 (1.5-4.8) K/mcL [place] # (Auto) 0.8 (0.1-0.9) K/mcL Eos # (Auto) 0.5 (0.0-0.7) K/mcL Baso # (Auto) 0 (0.0-0.3) K/mcL Sodium 138 (133-145) mmol/L Potassium 3.6 (3.3-5.1) mmol/L Chloride 96 (96-108) mmol/L Carbon Dioxide 28 (22-30) mmol/L Anion Gap 14.0 (8-16) BUN 18 (6-20) mg/dl Creatinine 0.8 (0.6-1.1) mg/dl GFR Calculation 83 Glucose 155 H (70-105) mg/dL Calcium 7.0 L (8.6-10.4) mg/dl Total Bilirubin 0.3 (0.0-1.0) mg/dL AST 14 (0-37) U/l ALT 15 (0-40) U/l Alkaline Phosphatase 55 (39-117) U/L Total Protein 6.8 (5.9-8.4) gm/dL Albumin 4.0 (3.2-5.2) gm/dL Globulin 2.8 (2.2-3.7) gm/dL Albumin/Globulin Ratio 1.4 (1.0-2.3) Lipase 11 (7-60) U/L Urine Color Yellow Urine Appearance Clear Urine pH 5.0 (5.0-9.0) Ur Specific [place] 1.020 (1.000-1.035) Urine Protein Neg (NEG) mg/dL Urine Glucose (UA) Negative (NEG) mg/dL Urine Ketones Neg (NEG) mg/dL Urine Occult Blood Neg (<0.03) mg/dL Urine Nitrate Neg (NEG) Urine Bilirubin Neg (NEG) mg/dL Urine Urobilinogen Neg (NEG) mg/dL Ur Leukocyte Esterase Neg (NEG) /uL Ur Culture Indicated? No - Radiology Data Radiology results reviewed: Yes I reviewed the patient's radiology results. 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
--- NOTE | 2017-09-18 07:52 | Cat Scan Report ---
CLINICAL INFORMATION: Reason for Exam:lower abd. pain no bm x 3 days COMPARISON: None. TECHNIQUE: Following injection of intravenous contrast the patient was scanned during the portal venous phase from the diaphragm through the symphysis pubis. Sagittal and coronal reformats were created.. FINDINGS: There is a calcified granuloma in the lateral segment of the right middle lobe. There were several linear bands of scar or discoid atelectasis in both lung bases. Liver is normal in size. There is mild generalized fatty infiltration. The gallbladder has been removed. The bile ducts are normal in caliber. The spleen is normal in size and homogeneous. There is no mass or inflammation the pancreas. The adrenals and kidneys are normal. The sigmoid colon is elongated and dilated. There is a sigmoid volvulus resulting in a partial distal large bowel obstruction. The lumen of the sigmoid measures up to 13 cm in diameter. The wall does not appear to be edematous or inflamed. The distal sigmoid and rectum are decompressed. The a sending colon and transverse colon are normal in caliber. There is no distention of small intestine. No abnormality is detected in the uterus or adnexa. There is no ascites or free intraperitoneal air. There is advanced disc degeneration at L4-5 and arthritis in the facets resulting in moderate spinal canal stenosis. IMPRESSION: Sigmoid volvulus causing partial distal large bowel obstruction Dr. Thompson was called with results Interpreted and Authenticated by: Zay Juarez 09/18/17
--- NOTE | 2017-09-18 08:18 | XRay Report ---
HISTORY: Reason for Exam:Abd Pain FINDINGS: The sigmoid colon is elongated and markedly distended, measuring up to 17 cm. Also contains a moderate amount stool. Stool is present in nondilated descending transverse and ascending colon. The small bowel is nondilated. No free intra-abdominal air is present. IMPRESSION: Sigmoid volvulus with distal large bowel obstruction Interpreted and Authenticated by: Zay Juarez 09/18/17
[2017-09-18] MEDS ORDERED: CALCIUM GLUCONATE 4.65 MEQ/10 ML VIAL IV ONE (13:49)
--- NOTE | 2017-09-18 13:58 | General Surg History&Physical ---
History of Present Illness Patient information: Note initiated : 09/18/17 at 1:53 pm Service Date, if different from initiated Date: [] Patient: Dayanna Stephens a 56 y/o F admitted on 09/18/17 for lower abd. pain. Chief Complaint: [ colonic obstruction and recurrent abdominal pain] HPI: Ms. Stephens is a 56 year old F with known history of colonic pseudoobstruction. Patient was admitted 18 August through 23 August 2017 with partial colonic obstruction which was exacerbated by chronic codeine use and constipation. She was treated with Relistor, manual fecal disimpaction, multiple saline and MiraLAX enemas and oral MiraLAX. She was discharged home on oral. She states that she has been taken it MiraLAX daily. On Saturday evening about 9 PM she developed sudden severe abdominal pain. She has not had flatus or bowel movement since that time. She took her MiraLAX without improvement and finally came to the emergency room because of severe pain. Abdominal x-ray shows a giant dilated sigmoid colon and CT confirms that she has volvulus with near complete obstruction of the sigmoid colon. Her proximal colon and distal sigmoid appeared to be unremarkable. She has not had nausea or vomiting and she does not have leukocytosis. Because the patient has had severe pseudoobstruction for over 13 years and is having major difficulty it is felt that operative treatment with resection of her sigmoid colon is going to be the treatment of choice. She will get enemas to evacuate her distal colon with the anticipation that we may be able to do primary anastomosis. If the status of her bowel intraoperatively will not allow this then she will have temporary colostomy with delayed colostomy closure. Review of Systems - Constitutional fatigue, headache(s), malaise, weakness, weight gain - EENT Nose, mouth and throat: headache(s) - Cardiovascular dyspnea on exertion, palpatations, rapid heart rate - Respiratory dyspnea on exertion, no wheezing, no chest congestion, no pain with cough - Gastrointestinal abdominal pain, bloating, change in bowel habits, constipation, nausea, vomiting - Genitourinary Genitourinary: urinary frequency, urinary incontinence, urinary urgency - Musculoskeletal arthralgias, stiffness - Integumentary no bleeding lesions, no new lesions - Neurological headache(s), no dizziness, no memory loss, no tremor(s) - Psychiatric anxiety, change in appetite, depression - Endocrine fatigue, heat intolerance - Hematologic/Lymphatic no easy bleeding, no easy bruising, no lymphadenopathy - Allergic/Immunologic no tongue swelling, no throat swelling, no uticaria, no wheezing, no lip swelling Past History Past medical history: Sjogren's syndrome Chronic obstructive lung disease Sarcoidosis Severe achalasia; treated and improved Osteoarthritis Hypothyroidism Past surgical history: Cholecystectomy Left knee meniscectomy Thymectomy Heller myotomy with toupee fundoplication Umbilical hernia repair Past family history: Mother coronary artery disease Father coronary artery disease Past social history: Former smoker Social drinker Denies drug use Medications and Allergies Home Medications Medication Instructions Recorded Confirmed Type predniSONE [Prednisone] 20 mg PO QAC #4 tablet 05/18/16 09/18/17 Rx Calcitriol 0.25 mcg PO TID 11/30/16 09/18/17 History DULoxetine [Cymbalta] 30 mg PO BID 11/30/16 09/18/17 History Linaclotide [Linzess] 72 mcg PO DAILY 11/30/16 09/18/17 History Nitroglycerin 0.4 mg PO PRN PRN 11/30/16 09/18/17 History Omeprazole 20 mg PO BID 11/30/16 09/18/17 History Levothyroxine [Synthroid] 250 mcg PO QAMAC 08/20/17 09/18/17 History Acetaminophen W/Codeine #3 2 cap PO Q4-6HP PRN 09/18/17 09/18/17 History [Tylenol #3] Calcium Carbonate [Calcium] 1,200 mg PO BID 09/18/17 09/18/17 History Polyethylene Glycol 3350 [Miralax] 17 gm PO BID 09/18/17 09/18/17 History Allergies Allergy/AdvReac Type Severity Reaction Status Date / Time Sulfa (Sulfonamide Allergy Severe Anaphylaxis Verified 11/29/16 12:46 Antibiotics) metoclopramide [From Reglan] AdvReac Intermediate Anxiety Verified 09/18/17 12: 37 steri strips Allergy Severe Blister Uncoded 06/12/15 15:48 Exam Temp Pulse Resp BP Pulse Ox 98.1 F 91 H 16 139/87 92 09/18/17 12:14 09/18/17 12:14 09/18/17 12:14 09/18/17 12:14 09/18/17 12:14 - General physical appearance well developed, well nourished, moderate distress, moderate pain, obese - Eyes PERRL, normal ocular movement, other (Bilateral miotic pupils) - ENT normal pinna, normal nares, normal mucosa, no hearing loss, no congestion - Head Head exam IM: Present: atraumatic, normal inspection, normocephalic - Neck no masses, no bruits, trachea midline, no lymphadectomy, no venous distension - Cardiovascular Cardiovascular exam IM: Present: normal rate and rhythm, RRR, +S1, +S2. Absent : gallop, JVD, systolic murmur - Respiratory normal expansion, normal respiratory effort, clear to percussion, clear to auscultation - Abdomen Abdomen: Present: soft, non tender, bowel sounds, distended (Major distention more confined to the left side of abdomen and upper abdomen no significant tenderness) Hernia: Present: none - Genitourinary Present: normal external genitalia - Integumentary Present: no rash, no growths, no abnormal pigmentation - Neurologic Present: normal coordination, normal sensation - Musculoskeletal Present: normal gait, normal posture - Psychiatric Present: oriented to time, oriented to person, oriented to place, speech is normal, memory intact Assessment and Plan (1) Volvulus of sigmoid colon Patient will have enemas to evacuate her distal colon She is counseled for left colectomy to be done in the morning Status: Acute (2) Pseudoobstruction of colon Status: Acute (3) Polyglandular autoimmune syndrome Status: Acute (4) Achalasia and cardiospasm Status: Acute (5) Hypothyroidism Status: Acute
[2017-09-18] MEDS: 0.9 % SODIUM CHLORIDE 10 ML SYRINGE IV SCH ×2 (14:22→23:59)
[2017-09-18] MEDS: 0.9 % SODIUM CHLORIDE 1,000 ML IV SCH ×2 (14:22→23:59)
[2017-09-18] MEDS: LEVOFLOXACIN 750 MG/150 ML BAG IV SCH ×2 (14:22→17:28)
[2017-09-18] MEDS: SODIUM CHLORIDE 0.9% IV SCH ×2 (14:53→19:07)
[2017-09-18] MEDS: CALCIUM GLUCONATE IV SCH ×2 (14:53→19:07)
[2017-09-18 15:49] LABS: ALT/SGPT 15 U/l (0-40); Albumin 3.7 gm/dL (3.2-5.2); Albumin/Globulin Ratio 1.3 (1.0-2.3); Alkaline Phosphatase 54 U/L (39-117); Bilirubin,Direct < 0.2 mg/dL (0.0-0.3); Blood Urea Nitrogen 15 mg/dl (6-20); Gamma Glutamyl Transpeptidase 21 U/L (5-36); Magnesium 1.7 mg/dL (1.6-2.5); Uric Acid 6.3 mg/dL (2.5-8.0)
[2017-09-18] MEDS: LORazepam 2 MG/ML VIAL IV PRN ×2 (16:14→23:58)
[2017-09-18] MEDS: metroNIDAZOLE 500 MG/100 ML BAG IV SCH ×2 (16:15→21:27)
[2017-09-18] MEDS: PANTOPRAZOLE 40 MG VIAL IV SCH (17:28)
[2017-09-18] MEDS: METHYLNALTREXONE BROMIDE 12 MG/0.6 ML SYRINGE SQ SCH (21:27)
[2017-09-18] MEDS: methylPREDNISolone SOD SUCC 40 MG/ML VIAL IV SCH (21:27)
[2017-09-18] MEDS: ONDANSETRON 4 MG/2 ML VIAL IV PRN (21:47)
[2017-09-19] MEDS: metroNIDAZOLE 500 MG/100 ML BAG IV SCH ×5 (01:35→20:31)
[2017-09-19] MEDS: HYDROmorphone 2 MG/ML SYRINGE IV PRN ×8 (04:53→23:55)
[2017-09-19] MEDS: LORazepam 2 MG/ML VIAL IV PRN ×2 (05:24→21:02)
[2017-09-19] MEDS: 0.9 % SODIUM CHLORIDE 10 ML SYRINGE IV SCH ×2 (06:22→17:18)
[2017-09-19 07:09] LABS: Mean Cell Volume 88.3 fL (80.0-100.0); Mean Corpuscular HGB Conc 33.4 g/dL (31.0-36.0); Mean Corpuscular Hemoglobin 29.5 pg (26.0-34.0); Platelet Count 284 K/mcL (140-440); RBC 4.33 M/mcL (4.00-5.20); Red Cell Distribution Width 13.8 % (11.5-14.5)
[2017-09-19] MEDS: PANTOPRAZOLE 40 MG VIAL IV SCH ×2 (07:23→16:59)
[2017-09-19] MEDS: 0.9 % SODIUM CHLORIDE 1,000 ML IV SCH ×3 (07:30→17:18)
[2017-09-19 07:32] LABS: ALT/SGPT 15 U/l (0-40); Albumin 3.7 gm/dL (3.2-5.2); Albumin/Globulin Ratio 1.3 (1.0-2.3); Alkaline Phosphatase 57 U/L (39-117); Bilirubin,Direct < 0.2 mg/dL (0.0-0.3); Blood Urea Nitrogen 12 mg/dl (6-20); Gamma Glutamyl Transpeptidase 21 U/L (5-36); Magnesium 1.6 mg/dL (1.6-2.5); Uric Acid 6.6 mg/dL (2.5-8.0)
--- NOTE | 2017-09-19 08:07 | XRay Report ---
HISTORY: Reason for Exam:PREOP EVALUATION FINDINGS: Right diaphragm is moderately elevated. This is a chronic finding but there is greater elevation today than there was on 08/23/17. There are thin linear bands of scar tissue at the left lung base. A calcified granuloma is noted in the midportion of the right lung. The lungs are otherwise clear. The heart size is normal. Sternal wires are present. There is no congestive heart failure or evidence of adenopathy. IMPRESSION: Chronic parenchymal scarring in both lungs and no acute abnormality Interpreted and Authenticated by: Zay Juarez 09/19/17
[2017-09-19 08:34] LABS: Lymphocytes % 9 % (15-49); Platelet Estimate NORMAL (NORMAL); RBC Morphology NORMAL (NORMAL); Segmented Neutrophils % 91 % (38-78)
[2017-09-19] MEDS: methylPREDNISolone SOD SUCC 40 MG/ML VIAL IV SCH ×2 (09:01→20:31)
[2017-09-19] MEDS: METHYLNALTREXONE BROMIDE 12 MG/0.6 ML SYRINGE SQ SCH (09:03)
[2017-09-19] MEDS: LEVOFLOXACIN 750 MG/150 ML BAG IV SCH (09:03)
[2017-09-19] MEDS: ONDANSETRON 4 MG/2 ML VIAL IV PRN (09:23)
[2017-09-19] MEDS ORDERED: KETOROLAC 30 MG/ML VIAL IV ONE (11:30)
[2017-09-19] MEDS ORDERED: MIDAZOLAM 2 MG/2 ML VIAL IV ONE (11:30)
[2017-09-19] MEDS ORDERED: DEXAMETHASONE 10 MG/ML VIAL IV ONE (11:30)
[2017-09-19] MEDS ORDERED: KETAMINE 100 MG/ML ML IV ONE (11:30)
[2017-09-19] MEDS ORDERED: fentaNYL 250 MCG/5 ML VIAL IV ONE (11:30)
[2017-09-19] MEDS ORDERED: HYDROmorphone 2 MG/ML SYRINGE IV ONE (11:30)
[2017-09-19] MEDS ORDERED: METOPROLOL TARTRATE 5 MG/5 ML VIAL IV ONE (11:30)
[2017-09-19] MEDS ORDERED: ONDANSETRON 4 MG/2 ML VIAL IV ONE (11:30)
[2017-09-19] MEDS ORDERED: PROPOFOL 200 MG/20 ML VIAL IV ONE (11:30)
[2017-09-19] MEDS ORDERED: ROCURONIUM 10 MG/ML ML IV ONE (11:30)
[2017-09-19] MEDS ORDERED: LIDOCAINE HCL/PF 100 MG/5 ML SYRINGE IV ONE (11:30)
[2017-09-19] MEDS ORDERED: FLUMAZENIL 0.1 MG/ML ML IV PRN ×2 (13:16→15:24)
[2017-09-19] MEDS ORDERED: IPRATROPIUM/ALBUTEROL 3 ML AMPUL.NEB NEB PRN ×2 (13:16→15:24)
[2017-09-19] MEDS ORDERED: LACTATED RINGERS 250 ML IV PRN (13:16)
[2017-09-19] MEDS ORDERED: MEPERIDINE 25 MG/ML SYRINGE IV PRN (13:16)
[2017-09-19] MEDS ORDERED: ACETAMINOPHEN 1,000 MG/100 ML BOTTLE IV ONE (13:16)
[2017-09-19] MEDS ORDERED: PROMETHAZINE 25 MG/ML VIAL IV PRN (13:16)
[2017-09-19] MEDS ORDERED: BENZOCAINE/MENTHOL 1 LOZENGE PO PRN ×2 (13:16→15:24)
[2017-09-19] MEDS ORDERED: ONDANSETRON 4 MG/2 ML VIAL IV PRN ×2 (13:16→15:24)
[2017-09-19] MEDS ORDERED: ePHEDrine 50 MG/ML AMPUL IV PRN ×2 (13:16→15:24)
[2017-09-19] MEDS ORDERED: diphenhydrAMINE 50 MG/ML VIAL IV PRN ×2 (13:16→15:24)
[2017-09-19] MEDS ORDERED: METHOCARBAMOL 1,000 MG/10 ML VIAL IV PRN (13:16)
[2017-09-19] MEDS ORDERED: NALOXONE HCL 0.4 MG/ML VIAL IV PRN ×2 (13:16→15:24)
[2017-09-19] MEDS ORDERED: LACTATED RINGERS 1,000 ML IV SCH ×2 (13:30→15:30)
[2017-09-19] MEDS: fentaNYL 100 MCG/2 ML VIAL IV PRN ×9 (15:00→15:53)
--- NOTE | 2017-09-19 15:01 | Brief Operative Note ---
Date of procedure: 09/19/17 Pre-op diagnosis: SIGMOID COLON VOLVULUS WITH OBSTRUCTION Post-op diagnosis: other (COLONIC PSEUDO-OBSTRUCTION WITH SIGMOID COLON VOLVULUS ) Procedure: SIGMOID COLECTOMY WITH COLOSTOMY;APPENDECTOMY Grafts/Implants: No Anesthesia: GETA Findings: DILATION OF ENTIRE COLON WITH MASSIVE DILATION OF SIGMOID AND 360DEGREE VOLVULUS AND DISTAL OBSTRUCTION; CECUM IN LLQ Complications: none Surgeon: Bertha Currie Estimated blood loss (cc): 100 Specimens Removed/Pathology: other (SIGMOID COLON AND APPENDIX) Condition: stable Disposition: PACU
[2017-09-19] MEDS: ACETAMINOPHEN 1,000 MG/100 ML BOTTLE IV SCH ×2 (17:38→23:51)
[2017-09-19] MEDS ORDERED: ACETAMINOPHEN 1,000 MG/100 ML BOTTLE IV SCH (18:00)
[2017-09-19] MEDS ORDERED: METOCLOPRAMIDE 10 MG/2 ML VIAL IV SCH (18:00)
[2017-09-20] MEDS: HYDROmorphone 2 MG/ML SYRINGE IV PRN ×10 (00:49→23:17)
[2017-09-20] MEDS: metroNIDAZOLE 500 MG/100 ML BAG IV SCH ×5 (00:49→23:10)
[2017-09-20] MEDS: 0.9 % SODIUM CHLORIDE 1,000 ML IV SCH ×3 (03:06→16:47)
[2017-09-20] MEDS: LORazepam 2 MG/ML VIAL IV PRN ×3 (03:39→21:09)
[2017-09-20] MEDS: ACETAMINOPHEN 1,000 MG/100 ML BOTTLE IV SCH ×3 (05:22→18:53)
[2017-09-20 05:59] LABS: Basophils # (Auto) 0 K/mcL (0.0-0.3); Basophils % (Auto) 0 % (0.0-2.0); Eosinophils # (Auto) 0.1 K/mcL (0.0-0.7); Eosinophils % (Auto) 0.6 % (0.0-7.0); Granulocytes % (Auto) 85.1 % (38.0-78.0); Lymphocytes # (Auto) 0.8 K/mcL (1.5-4.8); Lymphocytes % (Auto) 6.3 % (15.5-49.0); Mean Cell Volume 88.3 fL (80.0-100.0); Mean Corpuscular HGB Conc 34.2 g/dL (31.0-36.0); Mean Corpuscular Hemoglobin 30.2 pg (26.0-34.0); Platelet Count 282 K/mcL (140-440); RBC 3.48 M/mcL (4.00-5.20); Red Cell Distribution Width 13.7 % (11.5-14.5)
[2017-09-20 06:28] LABS: ALT/SGPT 13 U/l (0-40); Albumin 3.1 gm/dL (3.2-5.2); Albumin/Globulin Ratio 1.5 (1.0-2.3); Alkaline Phosphatase 40 U/L (39-117); Bilirubin,Direct < 0.2 mg/dL (0.0-0.3); Blood Urea Nitrogen 10 mg/dl (6-20); Gamma Glutamyl Transpeptidase 15 U/L (5-36); Magnesium 1.5 mg/dL (1.6-2.5); Uric Acid 7.2 mg/dL (2.5-8.0)
[2017-09-20] MEDS: PANTOPRAZOLE 40 MG VIAL IV SCH ×2 (07:46→17:55)
[2017-09-20] MEDS: methylPREDNISolone SOD SUCC 40 MG/ML VIAL IV SCH ×2 (09:49→20:51)
[2017-09-20] MEDS: LEVOFLOXACIN 750 MG/150 ML BAG IV SCH (09:49)
--- NOTE | 2017-09-20 12:19 | General Surgery Progress Note ---
Subjective Patient reports: feels better, still having pain, no flatus, no bowel movement, afebrile Narrative: Note initiated : 09/20/17 at 12:17 pm Service Date, if different from initiated Date: [] Patient: Dayanna Stephens 56 y/o F admitted on 09/18/17 for Lower Abd Pain/ Volvulus of Sigmoid Colon. Chief Complaint: [Patient is doing better on her first postoperative day. She is aware that she has her stoma and that it will be present for at least 2 months. Her pain is fairly well controlled. She denies nausea. Her urine output is very good.] Objective Temp Pulse Resp BP Pulse Ox 97.2 F 95 H 18 148/68 97 09/20/17 11:31 09/20/17 03:18 09/20/17 11:31 09/20/17 11:31 09/20/17 11:31 - Additional Data Intake & Output - Last 24 hours: Intake & Output 09/18/17 09/19/17 09/20/17 09/21/17 05:59 05:59 05:59 05:59 Intake Total 2590 / 2590 4300 / 4300 250 / 250 Output Total 1200 / 1200 Balance 2590 / 2590 3100 / 3100 250 / 250 Weight 242 lb 244 lb 8 oz 248 lb - General physical appearance moderate distress - Eyes PERRL - ENT no congestion - Neck no venous distension - Respiratory normal expansion, normal respiratory effort, clear to auscultation - Cardiovascular Cardiovascular exam: Present: normal rate and rhythm, RRR, +S1, +S2. Absent: gallop, JVD, systolic murmur, tachycardia - Abdomen soft, tender, bowel sounds, distended (Abdomen is distended with a few active bowel sounds; incision looks good. Stoma is viable.) - Integumentary no rash, no growths, no abnormal pigmentation - Neurologic normal coordination, normal sensation - Musculoskeletal normal gait, normal posture - Psychiatric oriented to time, oriented to person, oriented to place, speech is normal, memory intact - Labs 09/20/17 04:48 09/20/17 04:48 Diabetes panel 09/20/17 Range/Units 04:48 Sodium 138 (133-145) mmol/L Potassium 4.1 (3.3-5.1) mmol/L Chloride 99 (96-108) mmol/L Carbon Dioxide 23 (22-30) mmol/L BUN 10 (6-20) mg/dl Creatinine 0.6 (0.6-1.1) mg/dl Glucose 187 H (70-105) mg/dL Calcium 6.8 L (8.6-10.4) mg/dl AST 15 (0-37) U/l ALT 13 (0-40) U/l Alkaline Phosphatase 40 (39-117) U/L Total Protein 5.2 L (5.9-8.4) gm/dL Albumin 3.1 L (3.2-5.2) gm/dL Triglycerides 143 (<150) mg/dl Calcium panel 09/20/17 Range/Units 04:48 Calcium 6.8 L (8.6-10.4) mg/dl Phosphorus 4.3 (2.7-4.5) mg/dL Albumin 3.1 L (3.2-5.2) gm/dL Pituitary panel 09/20/17 Range/Units 04:48 Sodium 138 (133-145) mmol/L Potassium 4.1 (3.3-5.1) mmol/L Chloride 99 (96-108) mmol/L Carbon Dioxide 23 (22-30) mmol/L BUN 10 (6-20) mg/dl Creatinine 0.6 (0.6-1.1) mg/dl Glucose 187 H (70-105) mg/dL Calcium 6.8 L (8.6-10.4) mg/dl Adrenal panel 09/20/17 Range/Units 04:48 Sodium 138 (133-145) mmol/L Potassium 4.1 (3.3-5.1) mmol/L Chloride 99 (96-108) mmol/L Carbon Dioxide 23 (22-30) mmol/L BUN 10 (6-20) mg/dl Creatinine 0.6 (0.6-1.1) mg/dl Glucose 187 H (70-105) mg/dL Calcium 6.8 L (8.6-10.4) mg/dl Total Bilirubin 0.2 (0.0-1.0) mg/dL AST 15 (0-37) U/l ALT 13 (0-40) U/l Alkaline Phosphatase 40 (39-117) U/L Total Protein 5.2 L (5.9-8.4) gm/dL Albumin 3.1 L (3.2-5.2) gm/dL Assessment and Plan (1) Volvulus of sigmoid colon Status: Acute Assessment and plan: 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 Current Visit: Yes (2) Pseudoobstruction of colon Status: Acute Current Visit: Yes (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
[2017-09-21] MEDS: ACETAMINOPHEN 1,000 MG/100 ML BOTTLE IV SCH ×5 (00:18→17:49)
[2017-09-21] MEDS: HYDROmorphone 2 MG/ML SYRINGE IV PRN ×8 (03:14→21:01)
[2017-09-21] MEDS: LORazepam 2 MG/ML VIAL IV PRN ×2 (03:26→23:09)
[2017-09-21] MEDS: 0.9 % SODIUM CHLORIDE 1,000 ML IV SCH ×4 (03:38→20:12)
[2017-09-21] MEDS: metroNIDAZOLE 500 MG/100 ML BAG IV SCH ×5 (05:26→21:01)
[2017-09-21 06:44] LABS: Basophils # (Auto) 0 K/mcL (0.0-0.3); Basophils % (Auto) 0.1 % (0.0-2.0); Eosinophils # (Auto) 0 K/mcL (0.0-0.7); Eosinophils % (Auto) 0.6 % (0.0-7.0); Granulocytes % (Auto) 86.2 % (38.0-78.0); Lymphocytes # (Auto) 0.5 K/mcL (1.5-4.8); Lymphocytes % (Auto) 7.1 % (15.5-49.0); Mean Cell Volume 88.7 fL (80.0-100.0); Mean Corpuscular HGB Conc 33.6 g/dL (31.0-36.0); Mean Corpuscular Hemoglobin 29.8 pg (26.0-34.0); Monocytes # (Auto) 0.4 K/mcL (0.1-0.9); Platelet Count 220 K/mcL (140-440); RBC 3.06 M/mcL (4.00-5.20); Red Cell Distribution Width 13.6 % (11.5-14.5)
[2017-09-21 07:16] LABS: ALT/SGPT 11 U/l (0-40); Albumin 2.8 gm/dL (3.2-5.2); Albumin/Globulin Ratio 1.3 (1.0-2.3); Alkaline Phosphatase 37 U/L (39-117); Bilirubin,Direct < 0.2 mg/dL (0.0-0.3); Blood Urea Nitrogen 7 mg/dl (6-20); Gamma Glutamyl Transpeptidase 12 U/L (5-36); Magnesium 1.7 mg/dL (1.6-2.5); Uric Acid 6.1 mg/dL (2.5-8.0)
[2017-09-21] MEDS: PANTOPRAZOLE 40 MG VIAL IV SCH ×2 (07:42→17:32)
[2017-09-21] MEDS: methylPREDNISolone SOD SUCC 40 MG/ML VIAL IV SCH ×2 (09:32→21:01)
[2017-09-21] MEDS: LEVOFLOXACIN 750 MG/150 ML BAG IV SCH (09:32)
--- NOTE | 2017-09-21 12:34 | General Surgery Progress Note ---
Subjective Patient reports: feels better, pain is less, flatus, no bowel movement, afebrile Narrative: Note initiated : 09/21/17 at 12:31 pm Service Date, if different from initiated Date: [] Patient: Dayanna Stephens 56 y/o F admitted on 09/18/17 for Lower Abd Pain/ Volvulus of Sigmoid Colon. Chief Complaint: [Patient continues to improve. She has less pain and she denies nausea. She has had a small amount of gas in her stoma appliance. Her abdominal distention is less.] Objective Temp Pulse Resp BP Pulse Ox 97.8 F 89 18 132/82 93 09/21/17 11:28 09/21/17 03:13 09/21/17 11:28 09/21/17 11:28 09/21/17 11:28 - Additional Data Intake & Output - Last 24 hours: Intake & Output 09/19/17 09/20/17 09/21/17 09/22/17 05:59 05:59 05:59 05:59 Intake Total 2590 / 2590 4300 / 4300 3030 / 3030 100 / 100 Output Total 1200 / 1200 3260 / 3260 Balance 2590 / 2590 3100 / 3100 -230 / -230 100 / 100 Weight 244 lb 8 oz 248 lb 243 lb - General physical appearance moderate pain - Eyes PERRL - ENT no congestion - Neck no venous distension - Respiratory normal expansion, normal respiratory effort, clear to auscultation - Cardiovascular Cardiovascular exam: Present: normal rate and rhythm, RRR, +S1, +S2. Absent: gallop, JVD, systolic murmur - Abdomen soft, tender, bowel sounds (Few active bowel sounds; moderate distention but improved from yesterday; stoma looks good and is beginning to function; incision is unremarkable) - Integumentary no rash, no growths, no abnormal pigmentation - Neurologic normal coordination, normal sensation - Musculoskeletal normal gait, normal posture - Psychiatric oriented to time, oriented to person, oriented to place, speech is normal, memory intact - Labs 09/21/17 04:54 09/21/17 04:54 Diabetes panel 09/21/17 Range/Units 04:54 Sodium 142 (133-145) mmol/L Potassium 4.2 (3.3-5.1) mmol/L Chloride 102 (96-108) mmol/L Carbon Dioxide 26 (22-30) mmol/L BUN 7 (6-20) mg/dl Creatinine 0.6 (0.6-1.1) mg/dl Glucose 222 H (70-105) mg/dL Calcium 6.2 L (8.6-10.4) mg/dl AST 10 (0-37) U/l ALT 11 (0-40) U/l Alkaline Phosphatase 37 L (39-117) U/L Total Protein 5.0 L (5.9-8.4) gm/dL Albumin 2.8 L (3.2-5.2) gm/dL Triglycerides 116 (<150) mg/dl Calcium panel 09/21/17 Range/Units 04:54 Calcium 6.2 L (8.6-10.4) mg/dl Phosphorus 3.5 (2.7-4.5) mg/dL Albumin 2.8 L (3.2-5.2) gm/dL Pituitary panel 09/21/17 Range/Units 04:54 Sodium 142 (133-145) mmol/L Potassium 4.2 (3.3-5.1) mmol/L Chloride 102 (96-108) mmol/L Carbon Dioxide 26 (22-30) mmol/L BUN 7 (6-20) mg/dl Creatinine 0.6 (0.6-1.1) mg/dl Glucose 222 H (70-105) mg/dL Calcium 6.2 L (8.6-10.4) mg/dl Adrenal panel 09/21/17 Range/Units 04:54 Sodium 142 (133-145) mmol/L Potassium 4.2 (3.3-5.1) mmol/L Chloride 102 (96-108) mmol/L Carbon Dioxide 26 (22-30) mmol/L BUN 7 (6-20) mg/dl Creatinine 0.6 (0.6-1.1) mg/dl Glucose 222 H (70-105) mg/dL Calcium 6.2 L (8.6-10.4) mg/dl Total Bilirubin < 0.2 (0.0-1.0) mg/dL AST 10 (0-37) U/l ALT 11 (0-40) U/l Alkaline Phosphatase 37 L (39-117) U/L Total Protein 5.0 L (5.9-8.4) gm/dL Albumin 2.8 L (3.2-5.2) gm/dL Assessment and Plan (1) Volvulus of sigmoid colon Status: Acute Assessment and plan: 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 Early return of intestinal function Plan----decrease IV fluid infusion rate 2 view abdominal x-ray in the morning Current Visit: Yes (2) Pseudoobstruction of colon Status: Acute Current Visit: Yes (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
[2017-09-21] MEDS ORDERED: 0.9 % SODIUM CHLORIDE 1,000 ML BAG IV SCH (13:00)
[2017-09-21] MEDS: ONDANSETRON 4 MG/2 ML VIAL IV PRN (18:45)
[2017-09-22] MEDS: ACETAMINOPHEN 1,000 MG/100 ML BOTTLE IV SCH ×5 (00:02→23:38)
[2017-09-22] MEDS: metroNIDAZOLE 500 MG/100 ML BAG IV SCH ×4 (00:51→17:52)
[2017-09-22] MEDS: 0.9 % SODIUM CHLORIDE 1,000 ML IV SCH ×3 (01:18→20:41)
[2017-09-22] MEDS: HYDROmorphone 2 MG/ML SYRINGE IV PRN ×8 (03:33→23:38)
[2017-09-22 06:01] LABS: Basophils # (Auto) 0 K/mcL (0.0-0.3); Basophils % (Auto) 0.1 % (0.0-2.0); Eosinophils # (Auto) 0 K/mcL (0.0-0.7); Eosinophils % (Auto) 0.6 % (0.0-7.0); Granulocytes % (Auto) 87.8 % (38.0-78.0); Lymphocytes # (Auto) 0.6 K/mcL (1.5-4.8); Lymphocytes % (Auto) 7.9 % (15.5-49.0); Mean Cell Volume 88.3 fL (80.0-100.0); Mean Corpuscular HGB Conc 34.1 g/dL (31.0-36.0); Mean Corpuscular Hemoglobin 30.1 pg (26.0-34.0); Monocytes # (Auto) 0.3 K/mcL (0.1-0.9); Monocytes % (Auto) 3.6 % (1.0-12.0); Platelet Count 251 K/mcL (140-440); RBC 3.27 M/mcL (4.00-5.20); Red Cell Distribution Width 14.1 % (11.5-14.5)
[2017-09-22 06:21] LABS: ALT/SGPT 11 U/l (0-40); Albumin 2.8 gm/dL (3.2-5.2); Alkaline Phosphatase 40 U/L (39-117); Bilirubin,Direct < 0.2 mg/dL (0.0-0.3); Blood Urea Nitrogen 10 mg/dl (6-20); Gamma Glutamyl Transpeptidase 15 U/L (5-36); Magnesium 1.7 mg/dL (1.6-2.5); Uric Acid 5.8 mg/dL (2.5-8.0)
[2017-09-22] MEDS: PANTOPRAZOLE 40 MG VIAL IV SCH ×2 (07:03→17:15)
--- NOTE | 2017-09-22 08:43 | XRay Report ---
HISTORY: Reason for Exam:FOLLOW -UP OF SMALL BOWEL OBSTRUCTION FINDINGS: There is a large amount fecal material in the right side of the colon. The sigmoid volvulus as been surgically resected. There is an ostomy in the lateral aspect of the left upper pelvis. Numerous surgical skin kori are present in the midline. The small bowel is nondistended. The stomach is decompressed by a nasogastric tube. Small amount of free intra-abdominal air is present in the region of the huong hepatis. There are clips in the gallbladder fossa. Right diaphragm is elevated and there is a band of discoid atelectasis in the right lower lobe lung a tiny right-sided pleural effusion. IMPRESSION: Resolved bowel obstruction Interpreted and Authenticated by: Zay Juarez 09/22/17
[2017-09-22] MEDS: methylPREDNISolone SOD SUCC 40 MG/ML VIAL IV SCH ×2 (09:00→20:40)
[2017-09-22] MEDS: LEVOFLOXACIN 750 MG/150 ML BAG IV SCH (09:00)
[2017-09-22] MEDS: METHYLNALTREXONE BROMIDE 12 MG/0.6 ML SYRINGE SQ SCH (13:57)
[2017-09-22] MEDS ORDERED: MAGNESIUM HYDROXIDE 30 ML ORAL.SUSP PO SCH (14:00)
--- NOTE | 2017-09-22 14:10 | General Surgery Progress Note ---
Subjective Patient reports: feels better, pain is less, flatus, no bowel movement, afebrile Narrative: Note initiated : 09/22/17 at 2:07 pm Service Date, if different from initiated Date: [] Patient: Dayanna Stephens 56 y/o F admitted on 09/18/17 for Lower Abd Pain/ Volvulus of Sigmoid Colon. Chief Complaint: Patient is stable] and her pain is controlled. She has a small amount of flatus through her stoma but has not had any significant stool output. She does not have crampy abdominal pain. X-ray this morning shows large volume of stool in her colon with a paucity of gas. She has no other complaints. Objective Temp Pulse Resp BP Pulse Ox 97.6 F 88 18 133/86 93 09/22/17 11:59 09/22/17 03:36 09/22/17 11:59 09/22/17 11:59 09/22/17 11:59 - Additional Data Intake & Output - Last 24 hours: Intake & Output 09/20/17 09/21/17 09/22/17 09/23/17 05:59 05:59 05:59 05:59 Intake Total 4300 / 4300 3030 / 3030 1940 / 1940 1200 / 1200 Output Total 1200 / 1200 3260 / 3260 3330 / 3330 Balance 3100 / 3100 -230 / -230 -1390 / -1390 1200 / 1200 Weight 248 lb 243 lb 238 lb 1.6 oz - General physical appearance well nourished, no distress, moderate pain - Eyes PERRL - ENT no congestion - Neck no venous distension - Respiratory normal respiratory effort, clear to auscultation - Cardiovascular Cardiovascular exam: Present: normal rate and rhythm, RRR, +S1, +S2. Absent: JVD - Abdomen tender (Mild tenderness around her incision and her stoma; she does have active bowel sounds; distention of the upper abdomen persists; her stoma is viable and looks unremarkable) - Integumentary no rash, no growths, no abnormal pigmentation - Neurologic normal coordination, normal sensation - Labs 09/22/17 04:19 09/22/17 04:19 Diabetes panel 09/22/17 Range/Units 04:19 Sodium 142 (133-145) mmol/L Potassium 3.7 (3.3-5.1) mmol/L Chloride 99 (96-108) mmol/L Carbon Dioxide 27 (22-30) mmol/L BUN 10 (6-20) mg/dl Creatinine 0.6 (0.6-1.1) mg/dl Glucose 200 H (70-105) mg/dL Calcium 6.1 L (8.6-10.4) mg/dl AST 10 (0-37) U/l ALT 11 (0-40) U/l Alkaline Phosphatase 40 (39-117) U/L Total Protein 5.6 L (5.9-8.4) gm/dL Albumin 2.8 L (3.2-5.2) gm/dL Triglycerides 144 (<150) mg/dl Calcium panel 09/22/17 Range/Units 04:19 Calcium 6.1 L (8.6-10.4) mg/dl Phosphorus 4.0 (2.7-4.5) mg/dL Albumin 2.8 L (3.2-5.2) gm/dL Pituitary panel 09/22/17 Range/Units 04:19 Sodium 142 (133-145) mmol/L Potassium 3.7 (3.3-5.1) mmol/L Chloride 99 (96-108) mmol/L Carbon Dioxide 27 (22-30) mmol/L BUN 10 (6-20) mg/dl Creatinine 0.6 (0.6-1.1) mg/dl Glucose 200 H (70-105) mg/dL Calcium 6.1 L (8.6-10.4) mg/dl Adrenal panel 09/22/17 Range/Units 04:19 Sodium 142 (133-145) mmol/L Potassium 3.7 (3.3-5.1) mmol/L Chloride 99 (96-108) mmol/L Carbon Dioxide 27 (22-30) mmol/L BUN 10 (6-20) mg/dl Creatinine 0.6 (0.6-1.1) mg/dl Glucose 200 H (70-105) mg/dL Calcium 6.1 L (8.6-10.4) mg/dl Total Bilirubin < 0.2 (0.0-1.0) mg/dL AST 10 (0-37) U/l ALT 11 (0-40) U/l Alkaline Phosphatase 40 (39-117) U/L Total Protein 5.6 L (5.9-8.4) gm/dL Albumin 2.8 L (3.2-5.2) gm/dL Assessment and Plan (1) Volvulus of sigmoid colon Status: Acute Assessment and plan: 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 Early return of intestinal function Plan----milk of magnesia 30 cc every 4 hours 4 doses Relistor 12 mg subcu daily 3 doses Discontinue Martinez catheter Clamp nasogastric tube Current Visit: Yes (2) Pseudoobstruction of colon Status: Acute Current Visit: Yes (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
[2017-09-22] MEDS: MAGNESIUM HYDROXIDE 30 ML ORAL.SUSP PO SCH ×3 (14:32→22:54)
[2017-09-23] MEDS: metroNIDAZOLE 500 MG/100 ML BAG IV SCH ×4 (00:53→18:29)
[2017-09-23] MEDS: MAGNESIUM HYDROXIDE 30 ML ORAL.SUSP PO SCH (02:35)
[2017-09-23] MEDS: 0.9 % SODIUM CHLORIDE 1,000 ML IV SCH ×3 (02:37→17:24)
[2017-09-23] MEDS: HYDROmorphone 2 MG/ML SYRINGE IV PRN ×6 (03:36→22:02)
[2017-09-23] MEDS: ACETAMINOPHEN 1,000 MG/100 ML BOTTLE IV SCH ×4 (05:36→23:58)
[2017-09-23 05:55] LABS: Basophils # (Auto) 0 K/mcL (0.0-0.3); Basophils % (Auto) 0.1 % (0.0-2.0); Eosinophils # (Auto) 0 K/mcL (0.0-0.7); Eosinophils % (Auto) 0.3 % (0.0-7.0); Granulocytes % (Auto) 86.5 % (38.0-78.0); Lymphocytes # (Auto) 0.5 K/mcL (1.5-4.8); Lymphocytes % (Auto) 8.9 % (15.5-49.0); Mean Cell Volume 88.2 fL (80.0-100.0); Mean Corpuscular HGB Conc 33.4 g/dL (31.0-36.0); Mean Corpuscular Hemoglobin 29.4 pg (26.0-34.0); Monocytes # (Auto) 0.3 K/mcL (0.1-0.9); Monocytes % (Auto) 4.2 % (1.0-12.0); Platelet Count 294 K/mcL (140-440); RBC 3.37 M/mcL (4.00-5.20); Red Cell Distribution Width 13.5 % (11.5-14.5)
[2017-09-23 06:52] LABS: ALT/SGPT 13 U/l (0-40); Albumin 3.3 gm/dL (3.2-5.2); Albumin/Globulin Ratio 1.5 (1.0-2.3); Alkaline Phosphatase 41 U/L (39-117); Bilirubin,Direct < 0.2 mg/dL (0.0-0.3); Blood Urea Nitrogen 12 mg/dl (6-20); Gamma Glutamyl Transpeptidase 24 U/L (5-36); Magnesium 2.4 mg/dL (1.6-2.5); Uric Acid 4.8 mg/dL (2.5-8.0)
[2017-09-23] MEDS: PANTOPRAZOLE 40 MG VIAL IV SCH ×2 (08:13→17:24)
[2017-09-23] MEDS ORDERED: CALCIUM GLUCONATE 4.65 MEQ/10 ML VIAL IV ONE (08:19)
[2017-09-23] MEDS: LEVOFLOXACIN 750 MG/150 ML BAG IV SCH (09:07)
[2017-09-23] MEDS: methylPREDNISolone SOD SUCC 40 MG/ML VIAL IV SCH ×2 (09:07→22:01)
[2017-09-23] MEDS ORDERED: CALCIUM GLUCONATE 4.65 MEQ/10 ML VIAL IV SCH (10:00)
[2017-09-23] MEDS: METHYLNALTREXONE BROMIDE 12 MG/0.6 ML SYRINGE SQ SCH (10:32)
[2017-09-23] MEDS: ONDANSETRON 4 MG/2 ML VIAL IV PRN (11:17)
[2017-09-23 12:47] LABS: Ionized Calcium 0.94 mmol/L (1.16-1.32)
[2017-09-23 12:59] LABS: Blood Urea Nitrogen 11 mg/dl (6-20)
[2017-09-23] MEDS: LORazepam 2 MG/ML VIAL IV PRN (15:50)
--- NOTE | 2017-09-23 16:33 | General Surgery Progress Note ---
Subjective Patient reports: pain is less, flatus, bowel movement, afebrile Narrative: Note initiated : 09/23/17 at 4:33 pm Service Date, if different from initiated Date: [] Patient: Dayanna Stephens 56 y/o F admitted on 09/18/17 for Lower Abd Pain/ Volvulus of Sigmoid Colon. Chief Complaint: [] Objective Temp Pulse Resp BP Pulse Ox 98.1 F 71 20 134/58 94 09/23/17 16:00 09/23/17 03:41 09/23/17 16:00 09/23/17 16:00 09/23/17 16:00 - Additional Data Intake & Output - Last 24 hours: Intake & Output 09/21/17 09/22/17 09/23/17 09/24/17 05:59 05:59 05:59 05:59 Intake Total 3030 / 3030 1940 / 1940 3410 / 3410 460 / 460 Output Total 3260 / 3260 3330 / 3330 2600 / 2600 2275 / 2275 Balance -230 / -230 -1390 / -1390 810 / 810 -1815 / -1815 Weight 243 lb 238 lb 1.6 oz 238 lb 11.2 oz 238 lb 11.2 oz - Labs 09/23/17 04:37 09/23/17 12:07 Diabetes panel 09/23/17 09/23/17 Range/Units 04:37 12:07 Sodium 141 140 (133-145) mmol/L Potassium 4.0 3.9 (3.3-5.1) mmol/L Chloride 100 100 (96-108) mmol/L Carbon Dioxide 29 28 (22-30) mmol/L BUN 12 11 (6-20) mg/dl Creatinine 0.5 L 0.5 L (0.6-1.1) mg/dl Glucose 252 H 175 H (70-105) mg/dL Calcium 5.8 L* (8.6-10.4) mg/dl AST 13 (0-37) U/l ALT 13 (0-40) U/l Alkaline Phosphatase 41 (39-117) U/L Total Protein 5.5 L (5.9-8.4) gm/dL Albumin 3.3 (3.2-5.2) gm/dL Triglycerides 174 H (<150) mg/dl Calcium panel 09/23/17 09/23/17 Range/Units 04:37 12:07 Calcium 5.8 L* (8.6-10.4) mg/dl Ionized Calcium Jeannie 0.94 L (1.16-1.32) mmol/L Phosphorus 4.2 (2.7-4.5) mg/dL Albumin 3.3 (3.2-5.2) gm/dL Pituitary panel 09/23/17 09/23/17 Range/Units 04:37 12:07 Sodium 141 140 (133-145) mmol/L Potassium 4.0 3.9 (3.3-5.1) mmol/L Chloride 100 100 (96-108) mmol/L Carbon Dioxide 29 28 (22-30) mmol/L BUN 12 11 (6-20) mg/dl Creatinine 0.5 L 0.5 L (0.6-1.1) mg/dl Glucose 252 H 175 H (70-105) mg/dL Calcium 5.8 L* (8.6-10.4) mg/dl Adrenal panel 09/23/17 09/23/17 Range/Units 04:37 12:07 Sodium 141 140 (133-145) mmol/L Potassium 4.0 3.9 (3.3-5.1) mmol/L Chloride 100 100 (96-108) mmol/L Carbon Dioxide 29 28 (22-30) mmol/L BUN 12 11 (6-20) mg/dl Creatinine 0.5 L 0.5 L (0.6-1.1) mg/dl Glucose 252 H 175 H (70-105) mg/dL Calcium 5.8 L* (8.6-10.4) mg/dl Total Bilirubin 0.2 (0.0-1.0) mg/dL AST 13 (0-37) U/l ALT 13 (0-40) U/l Alkaline Phosphatase 41 (39-117) U/L Total Protein 5.5 L (5.9-8.4) gm/dL Albumin 3.3 (3.2-5.2) gm/dL Assessment and Plan (1) Volvulus of sigmoid colon Status: Acute Assessment and plan: 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 Early return of intestinal function Plan----milk of magnesia 30 cc every 4 hours 4 doses Relistor 12 mg subcu daily 3 doses Discontinue Martinez catheter Clamp nasogastric tube Current Visit: Yes (2) Pseudoobstruction of colon Status: Acute Current Visit: Yes (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
[2017-09-24] MEDS: metroNIDAZOLE 500 MG/100 ML BAG IV SCH ×5 (00:55→23:22)
[2017-09-24] MEDS: 0.9 % SODIUM CHLORIDE 1,000 ML IV SCH ×4 (03:32→21:43)
[2017-09-24] MEDS: HYDROmorphone 2 MG/ML SYRINGE IV PRN ×7 (03:33→23:19)
[2017-09-24] MEDS: ACETAMINOPHEN 1,000 MG/100 ML BOTTLE IV SCH ×2 (05:34→11:13)
[2017-09-24 05:36] LABS: Basophils # (Auto) 0 K/mcL (0.0-0.3); Basophils % (Auto) 0.1 % (0.0-2.0); Eosinophils # (Auto) 0 K/mcL (0.0-0.7); Eosinophils % (Auto) 0.7 % (0.0-7.0); Granulocytes % (Auto) 85.2 % (38.0-78.0); Lymphocytes # (Auto) 0.6 K/mcL (1.5-4.8); Lymphocytes % (Auto) 10.1 % (15.5-49.0); Mean Cell Volume 88.6 fL (80.0-100.0); Mean Corpuscular HGB Conc 33.3 g/dL (31.0-36.0); Mean Corpuscular Hemoglobin 29.5 pg (26.0-34.0); Monocytes # (Auto) 0.2 K/mcL (0.1-0.9); Monocytes % (Auto) 3.9 % (1.0-12.0); Platelet Count 296 K/mcL (140-440); RBC 3.55 M/mcL (4.00-5.20); Red Cell Distribution Width 13.6 % (11.5-14.5)
[2017-09-24 06:30] LABS: ALT/SGPT 15 U/l (0-40); Albumin 3.1 gm/dL (3.2-5.2); Albumin/Globulin Ratio 1.2 (1.0-2.3); Alkaline Phosphatase 41 U/L (39-117); Bilirubin,Direct < 0.2 mg/dL (0.0-0.3); Blood Urea Nitrogen 9 mg/dl (6-20); Gamma Glutamyl Transpeptidase 32 U/L (5-36); Magnesium 1.8 mg/dL (1.6-2.5); Uric Acid 4.3 mg/dL (2.5-8.0)
[2017-09-24] MEDS: PANTOPRAZOLE 40 MG VIAL IV SCH ×2 (07:32→17:28)
[2017-09-24] MEDS: METHYLNALTREXONE BROMIDE 12 MG/0.6 ML SYRINGE SQ SCH (09:00)
[2017-09-24] MEDS: LEVOFLOXACIN 750 MG/150 ML BAG IV SCH (09:00)
[2017-09-24] MEDS: methylPREDNISolone SOD SUCC 40 MG/ML VIAL IV SCH ×2 (09:01→21:43)
[2017-09-24] MEDS: LORazepam 2 MG/ML VIAL IV PRN (17:28)
[2017-09-24] MEDS ORDERED: CALCIUM GLUCONATE 4.65 MEQ/10 ML VIAL IV ONE ×3 (17:29→22:00)
--- NOTE | 2017-09-24 17:36 | General Surgery Progress Note ---
Subjective Patient reports: feels better, pain is less, tolerating liquids well, flatus, bowel movement, afebrile Narrative: Note initiated : 09/24/17 at 5:08 pm Service Date, if different from initiated Date: [] Patient: Dayanna Stephens 56 y/o F admitted on 09/18/17 for Lower Abd Pain/ Volvulus of Sigmoid Colon. Chief Complaint: [Patient feels much better. Her pain is better controlled. She is having more bowel movements via her stoma. She is still very emotional when confronted with her stoma but she is reassured that this can be reanastomosed in 2-3 months. Her serum calcium remains down so she will get 3 more doses of calcium gluconate tonight and will be started on oral calcium tomorrow.] Objective Temp Pulse Resp BP Pulse Ox 97.8 F 65 16 152/87 95 09/24/17 16:00 09/24/17 07:58 09/24/17 16:00 09/24/17 16:00 09/24/17 16:00 - Additional Data Intake & Output - Last 24 hours: Intake & Output 09/22/17 09/23/17 09/24/17 09/25/17 05:59 05:59 05:59 05:59 Intake Total 1940 / 1940 3410 / 3410 4450 / 4450 700 / 700 Output Total 3330 / 3330 2600 / 2600 5025 / 5025 2125 / 2125 Balance -1390 / -1390 810 / 810 -575 / -575 -1425 / -1425 Weight 238 lb 1.6 oz 238 lb 11.2 oz 236 lb - General physical appearance no distress, moderate pain, obese - Eyes PERRL - ENT no congestion - Neck no venous distension - Respiratory normal expansion, normal respiratory effort, clear to auscultation - Cardiovascular Cardiovascular exam: Present: normal rate and rhythm, RRR, +S1, +S2. Absent: JVD, tachycardia - Abdomen non tender, distended (Mild distention but with good active bowel sounds; stoma looks good and is functioning normal; incision is unremarkable) - Integumentary no rash, no growths, no abnormal pigmentation - Neurologic normal coordination, normal sensation - Musculoskeletal normal gait, normal posture - Psychiatric oriented to time - Labs 09/24/17 04:30 09/24/17 04:30 Diabetes panel 09/23/17 09/24/17 Range/Units 12:02 04:30 Sodium 142 (133-145) mmol/L Potassium 3.8 (3.3-5.1) mmol/L Chloride 100 (96-108) mmol/L Carbon Dioxide 26 (22-30) mmol/L BUN 9 (6-20) mg/dl Creatinine 0.6 (0.6-1.1) mg/dl Glucose 244 H (70-105) mg/dL Calcium 7.0 L 6.4 L (8.6-10.4) mg/dl AST 15 (0-37) U/l ALT 15 (0-40) U/l Alkaline Phosphatase 41 (39-117) U/L Total Protein 5.7 L (5.9-8.4) gm/dL Albumin 3.1 L (3.2-5.2) gm/dL Triglycerides 268 H (<150) mg/dl Calcium panel 09/23/17 09/24/17 Range/Units 12:02 04:30 Calcium 7.0 L 6.4 L (8.6-10.4) mg/dl Phosphorus 4.8 H (2.7-4.5) mg/dL Albumin 3.1 L (3.2-5.2) gm/dL Pituitary panel 09/23/17 09/24/17 Range/Units 12:02 04:30 Sodium 142 (133-145) mmol/L Potassium 3.8 (3.3-5.1) mmol/L Chloride 100 (96-108) mmol/L Carbon Dioxide 26 (22-30) mmol/L BUN 9 (6-20) mg/dl Creatinine 0.6 (0.6-1.1) mg/dl Glucose 244 H (70-105) mg/dL Calcium 7.0 L 6.4 L (8.6-10.4) mg/dl Adrenal panel 09/23/17 09/24/17 Range/Units 12:02 04:30 Sodium 142 (133-145) mmol/L Potassium 3.8 (3.3-5.1) mmol/L Chloride 100 (96-108) mmol/L Carbon Dioxide 26 (22-30) mmol/L BUN 9 (6-20) mg/dl Creatinine 0.6 (0.6-1.1) mg/dl Glucose 244 H (70-105) mg/dL Calcium 7.0 L 6.4 L (8.6-10.4) mg/dl Total Bilirubin 0.3 (0.0-1.0) mg/dL AST 15 (0-37) U/l ALT 15 (0-40) U/l Alkaline Phosphatase 41 (39-117) U/L Total Protein 5.7 L (5.9-8.4) gm/dL Albumin 3.1 L (3.2-5.2) gm/dL Assessment and Plan (1) Volvulus of sigmoid colon Status: Acute Assessment and plan: 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 Repeat milk of magnesia 3 doses Calcium gluconate 3 ampules over 3 doses Switch to oral pain medication Advance to full liquid diet Current Visit: Yes (2) Pseudoobstruction of colon Status: Chronic Current Visit: Yes (3) Polyglandular autoimmune syndrome Status: Acute Current Visit: No (4) Achalasia and cardiospasm Status: Acute Current Visit: No (5) Hypothyroidism Status: Acute Assessment and plan: We will restart oral Synthroid Current Visit: No - Time Spent With Patient Total time spent is greater than 50% in coordination of care (as documented) at patient's floor/unit and/or counseling patient:
[2017-09-24] MEDS: oxyCODONE/APAP 5/325MG TABLET PO PRN ×2 (17:52→21:44)
[2017-09-24] MEDS: MAGNESIUM HYDROXIDE 30 ML ORAL.SUSP PO SCH ×2 (18:13→21:52)
[2017-09-24] MEDS ORDERED: [UNRECOGNIZED DRUG - OTHER] PO PRN (21:00)
[2017-09-24] MEDS: CALCITRIOL 0.25 MCG CAPSULE PO SCH (21:44)
[2017-09-24] MEDS: DULoxetine 30 MG CAPSULE PO SCH (21:44)
[2017-09-24] MEDS: CALCIUM CARBONATE 500 MG TAB.CHEW CHEWED SCH (21:44)
[2017-09-25] MEDS: MAGNESIUM HYDROXIDE 30 ML ORAL.SUSP PO SCH (02:10)
[2017-09-25] MEDS: oxyCODONE/APAP 5/325MG TABLET PO PRN ×5 (02:29→21:27)
[2017-09-25] MEDS: HYDROmorphone 2 MG/ML SYRINGE IV PRN ×4 (04:37→18:44)
[2017-09-25] MEDS: metroNIDAZOLE 500 MG/100 ML BAG IV SCH ×3 (05:18→17:21)
--- NOTE | 2017-09-25 07:42 | Surgical Pathology Report ---
HISTOLOGY SPECIMEN MICROSCOPIC DIAGNOSIS SPECIMEN A - COLON, SIGMOID, SEGMENTAL RESECTION: -- DILATED PORTION OF COLON WITH SUBSEROSAL VASCULAR CONGESTION, CONSISTENT WITH HISTORY OF VOLVULUS. -- MULTIPLE MESENTERIC LYMPH NODES WITH REACTIVE LYMPHOID HYPERPLASIA. -- MARGINS VIABLE. SPECIMEN B - APPENDIX, APPENDECTOMY: -- FIBROUS ABLATION OF THE APPENDICEAL TIP. -- NO APPENDICITIS IDENTIFIED. (DMT:[email or web address]) CLINICAL HISTORY Volvulus of sigmoid colon. GROSS DESCRIPTION Specimen B: Received in formalin labeled with the patient information, is a pink-araujo segment of colon. It is 46.0 cm in length with an average diameter of 6.5 cm and an average wall thickness of 0.2 cm. There is a dilated area. It is 20.5 cm in length and has an average diameter of 11.4 cm. It has pink-araujo attached fat. The specimen is received with both margins stapled. The serosa is araujo. The mucosa is araujo with a broad and plicated pattern. Grossly there are no lesions or areas of possible diverticula identified. There are multiple candidate lymph nodes identified from less than 0.1 to 1.6 cm. Cut surfaces are pink-araujo to purple-araujo. Wellness Program Administrator sections submitted - six cassettes: A1 - margins; A2-A4 random sections; A5-A6 - candidate lymph nodes. Specimen B: Received in formalin labeled with the patient information, is a britton-araujo appendix. It is 4.9 cm in length by up to 0.8 cm in diameter. It has up to 3.1 cm of araujo attached fat. Cut surfaces are britton-araujo with araujo fecal material. Wellness Program Administrator sections submitted - one cassette. (STM:[email or web address]) Electronically Signed by: Deep Taylor M.D.
[2017-09-25] MEDS: LEVOTHYROXINE 125 MCG TABLET PO SCH (07:55)
[2017-09-25] MEDS: PANTOPRAZOLE 40 MG VIAL IV SCH ×2 (07:55→16:29)
[2017-09-25] MEDS: LEVOFLOXACIN 750 MG/150 ML BAG IV SCH (08:51)
[2017-09-25] MEDS: methylPREDNISolone SOD SUCC 40 MG/ML VIAL IV SCH ×2 (08:51→21:27)
[2017-09-25] MEDS: CALCITRIOL 0.25 MCG CAPSULE PO SCH ×3 (08:53→21:27)
[2017-09-25] MEDS: CALCIUM CARBONATE 500 MG TAB.CHEW CHEWED SCH ×2 (08:53→21:27)
[2017-09-25] MEDS: DULoxetine 30 MG CAPSULE PO SCH ×2 (08:53→21:27)
[2017-09-25] MEDS: 0.9 % SODIUM CHLORIDE 1,000 ML IV SCH (11:28)
[2017-09-26] MEDS: metroNIDAZOLE 500 MG/100 ML BAG IV SCH ×5 (00:05→18:28)
[2017-09-26] MEDS: oxyCODONE/APAP 5/325MG TABLET PO PRN ×5 (02:33→19:21)
[2017-09-26] MEDS: 0.9 % SODIUM CHLORIDE 10 ML SYRINGE IV SCH ×3 (06:00→20:50)
[2017-09-26] MEDS: LEVOTHYROXINE 125 MCG TABLET PO SCH (07:27)
[2017-09-26] MEDS: PANTOPRAZOLE 40 MG VIAL IV SCH ×3 (07:27→18:27)
[2017-09-26] MEDS: CALCITRIOL 0.25 MCG CAPSULE PO SCH ×3 (08:48→20:50)
[2017-09-26] MEDS: DULoxetine 30 MG CAPSULE PO SCH ×2 (08:48→20:50)
[2017-09-26] MEDS: CALCIUM CARBONATE 500 MG TAB.CHEW CHEWED SCH ×2 (08:49→20:50)
[2017-09-26] MEDS: LEVOFLOXACIN 750 MG/150 ML BAG IV SCH (08:49)
[2017-09-26] MEDS: methylPREDNISolone SOD SUCC 40 MG/ML VIAL IV SCH ×2 (08:49→20:49)
[2017-09-26] MEDS: LORazepam 2 MG/ML VIAL IV PRN ×2 (12:03→20:49)
--- NOTE | 2017-09-26 12:59 | General Surgery Progress Note ---
Surgical - Auxillary Note - Subjective Patient Information: Note initiated : 09/26/17 at 12:56 pm Service Date, if different from initiated Date: [] Patient: Dayanna Stephens 56 y/o F admitted on 09/18/17 for Lower Abd Pain/ Volvulus of Sigmoid Colon. Chief Complaint: Patient resting in bed without complaints. Denies abdominal pain or nausea. Reports flatus and stool via ostomy. Vital Signs Temp Pulse Resp BP Pulse Ox 98.4 F 99 H 20 138/92 95 09/26/17 07:14 09/26/17 07:14 09/26/17 07:14 09/26/17 07:14 09/26/17 07:14 Period Temp Pulse Resp BP Sys/Archuleta Pulse Ox Last 24 Hr 97.8 F-98.6 F 65-106 12-20 137-167/78-97 95-95 Intake and Output 09/25/17 09/26/17 09/26/17 21:59 05:59 13:59 Intake Total 1140 / 1140 600 / 600 1650 / 1650 Output Total 2700 / 2700 1900 / 1900 3000 / 3000 Balance -1560 / -1560 -1300 / -1300 -1350 / -1350 Weight 233 lb PE: no distress, Chest: clear bilaterally CV: regular rate and rhythm ABD: obese, soft, incision CDI w/o erythema EXT: warm, DP pulses palpable. A/P: stable post op from partial colectomy and end colostomy bowel function has returned. Ostomy nurse to see patient today and teach care. Advance diet and med to p.o. with anticipation of discharge soon.
[2017-09-26 14:35] LABS: Ionized Calcium 0.96 mmol/L (1.16-1.32)
[2017-09-26 14:40] LABS: Blood Urea Nitrogen 10 mg/dl (6-20); Magnesium 1.7 mg/dL (1.6-2.5)
[2017-09-27] MEDS: metroNIDAZOLE 500 MG/100 ML BAG IV SCH ×2 (00:08→06:06)
[2017-09-27] MEDS: oxyCODONE/APAP 5/325MG TABLET PO PRN ×3 (00:08→09:30)
[2017-09-27] MEDS: 0.9 % SODIUM CHLORIDE 10 ML SYRINGE IV SCH (06:06)
[2017-09-27] MEDS: PANTOPRAZOLE 40 MG VIAL IV SCH (07:46)
[2017-09-27] MEDS: LEVOTHYROXINE 125 MCG TABLET PO SCH (07:46)
--- NOTE | 2017-09-27 09:13 | General Surgery Progress Note ---
Surgical - Auxillary Note - Subjective Patient Information: Note initiated : 09/27/17 at 9:07 am Service Date, if different from initiated Date: [] Patient: Dayanna Stephens 56 y/o F admitted on 09/18/17 for Lower Abd Pain/ Volvulus of Sigmoid Colon. Chief Complaint: Patient rested well. Had a good night. Tolerating diet and having stool through ostomy. Had ostomy teaching with ostomy nurse yesterday and reports this went well. Vital Signs Temp Pulse Resp BP Pulse Ox 96.8 F L 100 H 16 156/94 93 09/27/17 06:44 09/27/17 04:00 09/27/17 06:44 09/27/17 06:44 09/27/17 06:44 Period Temp Pulse Resp BP Sys/Archuleta Pulse Ox Last 24 Hr 96.8 F-98.4 F 95-105 14-20 147-156/84-99 92-94 Intake and Output 09/26/17 09/27/17 09/27/17 21:59 05:59 13:59 Intake Total 1130 / 1130 700 / 700 Output Total 1800 / 1800 1000 / 1000 Balance -670 / -670 -300 / -300 Weight 236 lb 1.6 oz PE: No distress Chest: clear bilaterally CV: regular rate and rhythm ABD: soft, Mild incisional tenderness. No erythema or discharge. Ostomy pink and functioning with stool in appliance. A/P: s/p partial sigmoid resection with colostomy for volvulus. Stable. tolerating regular diet and bowel function returned. Home today with follow up in clinic next week.
[2017-09-27] MEDS: CALCITRIOL 0.25 MCG CAPSULE PO SCH (09:30)
[2017-09-27] MEDS: DULoxetine 30 MG CAPSULE PO SCH (09:30)
[2017-09-27] MEDS: CALCIUM CARBONATE 500 MG TAB.CHEW CHEWED SCH (09:30)
[2017-09-27] MEDS: methylPREDNISolone SOD SUCC 40 MG/ML VIAL IV SCH (09:31)
[2017-09-27] MEDS: LEVOFLOXACIN 750 MG/150 ML BAG IV SCH (09:31)
--- NOTE | 2017-10-15 12:17 | Operative Note ---
DATE OF OPERATION: 09/19/2017 PREOPERATIVE DIAGNOSIS: Sigmoid colon volvulus with obstruction. 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 PROCEDURE: Sigmoid colectomy with colostomy and appendectomy. SURGEON: Bertha Currie M.D. FINDINGS: Dilation of entire colon with massive dilation of sigmoid colon and 360 degree volvulus of the sigmoid colon with obstruction. The cecum was in the left lower quadrant. DESCRIPTION: Under general anesthesia, the patient's abdomen was prepped and draped in a sterile field. Timeout procedure was carried out as per protocol. A supraumbilical midline incision was made. Upon entering the peritoneal cavity, there was noted to be massive dilation of all of the bowel with the most distinct dilation and thinning involving the sigmoid colon. There was tight volvulus of the sigmoid with a 360 degree volvulus with complete obstruction. The cecum was also massively dilated and was in the left lower quadrant. 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 It was elected to do a Wilberto's procedure and appendectomy since the cecum was in the left lower quadrant. The incision was extended more cephalad, and the entire aspect of the twisted sigmoid was inspected. The base of the mesentery was tightly twisted, and it was gently reduced. The bowel was clamped proximally. An incision was made in the mesentery, and the bowel was divided proximal to the area of volvulus using the Contour stapler. The rectum was divided above the peritoneal reflection using the Contour stapler. The mesocolon was divided using LigaSure with the larger vessels being divided between Asuncion clamps and controlled with ties of 2-0 silk. The specimen was passed off. The rectal stump was reinforced using a TA 60 stapler since there was a large volume of stool. This was then identified by placing two sutures of 3-0 Prolene. Next, the cecum was inspected. An appendectomy was done using a TA 30 stapler, and the appendiceal stump was inverted using interrupted 2-0 silk. Irrigation was carried out. The proximal sigmoid was then mobilized along the line of Toldt up to the splenic flexure. The opening for the stoma was made at the level of the umbilicus laterally. Once this was done, the end of the bowel was brought out using an Domo clamp. The mesentery and the bowel wall was sutured to the peritoneum using multiple interrupted 3-0 silks. Irrigation was carried out. Sponge, needle, instrument, and blade counts were verified as correct. The abdominal wall was then closed using running #1 Prolene on the fascia and peritoneum, 2-0 Monocryl in two layers on the subcutaneous fat, and kori on the skin. The staple line was covered and the stoma was matured. The wall of the bowel was sutured to the anterior rectus fascia using interrupted 3-0 silk. The end of the bowel was sutured circumferentially using running locking 3-0 Vicryl. A stoma appliance was placed. Tegaderm was placed over the incision. The patient tolerated the procedure well. She was awakened and transferred to the postanesthetic care unit in a stable, satisfactory condition. LCS:naldo Job ID: [id number] Doc ID: [id number] Bertha Currie M.D.
== END 2017-09-27 12:00 | disposition home health service (06) | DRG 331 ==
LOC: ED 03:46 → MEDSUR 12:13
PROVIDERS: ADMIT Family Medicine Adult Medicine; ATTEND Surgery

== ENCOUNTER 2017-10-03 13:43 | Inpatient (IN) ==
[2017-10-03] MEDS ORDERED: IOPAMIDOL 100 ML BOTTLE IJ ONE (13:44)
[2017-10-03] MEDS ORDERED: 0.9 % SODIUM CHLORIDE 1,000 ML IV ONE (14:08)
[2017-10-03] MEDS ORDERED: ONDANSETRON 4 MG/2 ML VIAL IV ONE (14:23)
--- NOTE | 2017-10-03 14:25 | Emergency Department Note ---
Abdominal Pain HPI - General Chief Complaint: Abdominal Pain Stated Complaint: Abd pain/constipation post ostomy Time Seen by Provider: 10/03/17 13:47 Source: patient Mode of arrival: wheelchair Limitations: no limitations - History of Present Illness HPI Narrative: This patient had a colostomy recently because of volvulus. She has had no output from the colostomy in 3 days and feels a lot of pain and bloating. So nauseated. - Related Data Home Medications Medication Instructions Recorded Confirmed Calcitriol 0.25 mcg PO TID 11/30/16 10/02/17 DULoxetine [Cymbalta] 30 mg PO BID 11/30/16 10/02/17 Linaclotide [Linzess] 72 mcg PO DAILY 11/30/16 10/02/17 Nitroglycerin 0.4 mg PO PRN PRN 11/30/16 10/02/17 Omeprazole 20 mg PO BID 11/30/16 10/02/17 Levothyroxine [Synthroid] 250 mcg PO QAMAC 08/20/17 10/02/17 Acetaminophen W/Codeine #3 2 cap PO Q4-6HP PRN 09/18/17 10/02/17 [Tylenol #3] Calcium Carbonate 1,200 mg PO BID 09/18/17 10/02/17 Naproxen (Pp) [Aleve (Pp)] 2 tab PO BID 09/18/17 10/02/17 Polyethylene Glycol 3350 [Miralax] 17 gm PO BID 09/18/17 10/02/17 Previous Rx's Medication Instructions Recorded predniSONE [Prednisone] 20 mg PO QAMCC #4 tab 05/18/16 oxyCODONE HCL [Oxycodone HCl] 5 - 10 mg PO Q4H PRN 5 Days #300 09/27/17 ml NS amoxicillin 500 mg-potassium 1 tab PO Q12H #10 tab 10/02/17 clavulanate 125 mg tablet Allergies Allergy/AdvReac Type Severity Reaction Status Date / Time Sulfa (Sulfonamide Allergy Severe Anaphylaxis Verified 10/02/17 13:11 Antibiotics) metoclopramide [From Reglan] AdvReac Intermediate Anxiety Verified 10/02/17 13: 11 steri strips Allergy Severe Blister Uncoded 10/02/17 13:11 Review of Systems All systems ED: reviewed and negative except as stated. Abdominal Pain PMH - Past Medical History PMFSH Narrative: Medical History (Last Reviewed 10/02/17 @ 13:12 by Jayla Hay CMA) Foot sprain (Acute) Anaphylaxis (Acute) Adverse reaction to drug (Acute) Severe sepsis (Acute) Pyelonephritis (Acute) Pneumonia (Acute) Myasthenia gravis (Acute) Polyglandular autoimmune syndrome (Acute) Sarcoidosis (Acute) Achalasia and cardiospasm (Acute) Hypothyroidism (Acute) UTI (urinary tract infection) (Acute) Infiltrate of lung present on imaging of chest (Acute) Small bowel obstruction, partial (Acute) Pancreatitis (Acute) Myasthenia gravis (Acute) Volume depletion (Acute) Partial intestinal obstruction, unspecified as to cause (Resolved) Constipation due to pain medication therapy (Acute) Supraventricular tachycardia (Acute) 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 achalasia) Surgical history ED: Reports: colectomy, colostomy Family history: Reports: non-contributory - Social History Smoking status: Never smoker Alcohol use: Reports: None Drug use: Reports: none Physical Exam Limitations: no limitations General appearance: alert, in no apparent distress Head: atraumatic, normocephalic Eye: Present: normal appearance ENT: normal exam Neck: Present: normal inspection Chest: Present: normal inspection Respiratory: Present: normal lung sounds bilaterally Cardiovascular: Present: regular rate, normal rhythm, normal heart sounds Abdominal: Present: soft, distention, tenderness, hypoactive bowel sounds. Absent: guarding, rebound, rigidity Abdominal tenderness: Present: diffuse, mild Neurological: Present: alert Psychiatric: Present: normal affect, normal mood Skin: Present: warm, dry, intact Course Vital Signs Temperature 97.1 F 10/03/17 13:44 Pulse Rate 155 H 10/03/17 13:44 Respiratory Rate 18 10/03/17 13:44 Pulse Oximetry (%) 97 10/03/17 13:44 Temperature 97.1 F 10/03/17 13:44 Pulse Rate 117 H 10/03/17 16:49 Respiratory Rate 25 H 10/03/17 16:49 Blood Pressure 133/78 10/03/17 16:49 Pulse Oximetry (%) 98 10/03/17 16:49 Abdominal Pain - MDM Narrative Medical decision making narrative: This patient has a high-grade partial small bowel obstruction and will be admitted to hospital by Dr. Pulliam. - Lab Data Lab results reviewed: Yes I reviewed the patient's lab results. Result diagrams: 10/03/17 15:14 10/03/17 15:14 Lab Results 10/03/17 10/03/17 Range/Units 15:14 15:14 WBC 9.5 (4.5-11.0) K/mcL RBC 4.37 (4.00-5.20) M/mcL Hgb 12.9 (12.0-15.0) g/dL Hct 38.3 (36.0-48.0) % MCV 87.7 (80.0-100.0) fL MCH 29.6 (26.0-34.0) pg MCHC 33.8 (31.0-36.0) g/dL RDW 14.6 H (11.5-14.5) % Plt Count 318 (140-440) K/mcL MPV 7.8 (7.4-10.4) fL Gran % 72.8 (38.0-78.0) % Lymph % (Auto) 12.7 L (15.5-49.0) % Greenlee % (Auto) 11.6 (1.0-12.0) % Eos % (Auto) 2.6 (0.0-7.0) % Baso % (Auto) 0.3 (0.0-2.0) % Gran # 6.9 (1.8-8.0) K/mcL Lymph # (Auto) 1.2 L (1.5-4.8) K/mcL Greenlee # (Auto) 1.1 H (0.1-0.9) K/mcL Eos # (Auto) 0.2 (0.0-0.7) K/mcL Baso # (Auto) 0 (0.0-0.3) K/mcL Sodium 132 L (133-145) mmol/L Potassium 3.4 (3.3-5.1) mmol/L Chloride 89 L (96-108) mmol/L Carbon Dioxide 29 (22-30) mmol/L Anion Gap 14.0 (8-16) BUN 12 (6-20) mg/dl Creatinine 0.6 (0.6-1.1) mg/dl GFR Calculation 103 Glucose 191 H (70-105) mg/dL Calcium 8.5 L (8.6-10.4) mg/dl Total Bilirubin 0.3 (0.0-1.0) mg/dL AST 14 (0-37) U/l ALT 14 (0-40) U/l Alkaline Phosphatase 74 (39-117) U/L Total Protein 6.1 (5.9-8.4) gm/dL Albumin 3.2 (3.2-5.2) gm/dL Globulin 2.9 (2.2-3.7) gm/dL Albumin/Globulin Ratio 1.1 (1.0-2.3) - Radiology Data Radiology results reviewed: Yes I reviewed the patient's radiology results. Disposition Pt seen by [facility]/PA only: No Clinical Impression: Small bowel obstruction Disposition: Xfer As Inpt ([facility]) Condition: Fair Referrals: Douglas Haque MD [Primary Care Provider] - Time of Disposition: 17:52
[2017-10-03] MEDS ORDERED: HYDROmorphone 2 MG/ML SYRINGE ONE (14:34)
[2017-10-03] MEDS: HYDROmorphone 2 MG/ML SYRINGE IV PRN ×3 (15:09→21:50)
--- NOTE | 2017-10-03 15:16 | XRay Report ---
CLINICAL INFORMATION: , Pain and distention COMPARISON: 09/22/2017 FINDINGS: The stomach and multiple loops of small bowel in the upper abdomen are moderately dilated with air-fluid levels. The mid/distal small bowel and colon are relatively decompressed. No free air or soft tissue mass. IMPRESSION: Recurrent high-grade small bowel obstruction - likely at the mid jejunal level Interpreted and Authenticated by: All Lundberg 10/03/17
[2017-10-03] MEDS: 0.9 % SODIUM CHLORIDE 1,000 ML IV SCH ×2 (15:30→23:24)
[2017-10-03 15:40] LABS: Basophils # (Auto) 0 K/mcL (0.0-0.3); Basophils % (Auto) 0.3 % (0.0-2.0); Eosinophils # (Auto) 0.2 K/mcL (0.0-0.7); Eosinophils % (Auto) 2.6 % (0.0-7.0); Granulocytes % (Auto) 72.8 % (38.0-78.0); Lymphocytes # (Auto) 1.2 K/mcL (1.5-4.8); Lymphocytes % (Auto) 12.7 % (15.5-49.0); Mean Cell Volume 87.7 fL (80.0-100.0); Mean Corpuscular HGB Conc 33.8 g/dL (31.0-36.0); Mean Corpuscular Hemoglobin 29.6 pg (26.0-34.0); Monocytes # (Auto) 1.1 K/mcL (0.1-0.9); Monocytes % (Auto) 11.6 % (1.0-12.0); Platelet Count 318 K/mcL (140-440); RBC 4.37 M/mcL (4.00-5.20); Red Cell Distribution Width 14.6 % (11.5-14.5)
[2017-10-03 15:58] LABS: ALT/SGPT 14 U/l (0-40); Albumin 3.2 gm/dL (3.2-5.2); Albumin/Globulin Ratio 1.1 (1.0-2.3); Alkaline Phosphatase 74 U/L (39-117); Blood Urea Nitrogen 12 mg/dl (6-20)
--- NOTE | 2017-10-03 16:36 | Cat Scan Report ---
CLINICAL INFORMATION: Recent partial colectomy for sigmoid volvulus with left lower quadrant colostomy colostomy. Abdominal pain and distention COMPARISON: Preoperative abdomen and pelvic CT from two weeks prior - 09/18/2017 TECHNIQUE: Following enteric contrast, 80 cc of Isovue-300 were injected intravenously, and 60 seconds later, 0.625 mm helical slices were obtained from the mid heart through the subtrochanteric regions. Following reconstruction, 2.5 mm sagittal, coronal and axial reformatted images were processed and reviewed at bone, lung and soft tissue windows. Five minutes later, 0.625 mm helical slices were obtained from the mid heart through the kidneys and viewed at soft tissue windows.The exam was performed using radiation dose optimization techniques including, but not limited to, automated exposure control, adjustment of the mA and/or kV according to patient size and use of iterative reconstruction technique. FINDINGS: Lung bases show COPD changes with scattered scarring. No infiltrates or effusions. Small hiatal hernia noted. The heart is grossly normal. Images through the abdomen show minimal fatty change within the liver, but no focal lesion. The gallbladder is surgically absent. Intrahepatic and common bile ducts are normal caliber. Both kidneys, adrenal glands, spleen and aorta, including aortic branches, are normal in size, configuration and attenuation without focal lesion. Mild pancreatic atrophy is stable. Images through the pelvis show urinary bladder is normal. Postmenopausal uterus spans 7 x 4.3 cm. Sigmoid colectomy with Baez's pouch creation. The descending colon has been swung into a colostomy in the left lower quadrant. Postsurgical sites are unremarkable. The stomach, duodenum and jejunum are markedly dilated due either to adhesions or fracture of the distal jejunum within the right lower quadrant. It is a relatively abrupt transition - best seen on axial image 119, coronal image 39 and sagittal image 59. The small bowel, distal to the transition point is markedly decompressed and is minimal stool in colon. No evidence of free air to suggest perforation and no free fluid. No adenopathy. Bone windows show no osseous abnormality IMPRESSION: 1. High-grade high-grade partial distal jejunal obstruction due to adhesions or strictures in the right lower quadrant. No evidence of ischemia, perforation and no evidence of free fluid suggest third spacing. 2. Sigmoid colectomy, Baez's pouch creation and left lower quadrant colostomy all appear unremarkable. 3. Small hiatal hernia 4. Emphysema changes in the lung bases Interpreted and Authenticated by: All Lundberg 10/03/17
--- NOTE | 2017-10-03 17:26 | XRay Report ---
CLINICAL INFORMATION: High-grade distal jejunal obstruction. NG placement COMPARISON: None. FINDINGS: NG tube is malpositioned - bent in the distal esophagus. Stomach and multiple loops of upper small bowel are mildly dilated bowel high-grade distal jejunal obstruction. No free air or soft tissue mass IMPRESSION: High-grade distal ureteral obstruction pattern. NG tube malpositioned in the distal esophagus Interpreted and Authenticated by: All Lundberg 10/03/17
--- NOTE | 2017-10-03 17:57 | XRay Report ---
CLINICAL INFORMATION: High-grade distal jejunal obstruction. NG placement COMPARISON: None. FINDINGS: NG tube remains malpositioned - bent in the distal esophagus. Stomach and multiple loops of upper small bowel are mildly dilated bowel high-grade distal jejunal obstruction. No free air or soft tissue mass IMPRESSION: High-grade distal ureteral obstruction pattern. NG tube remains malpositioned in the distal esophagus. Patient may have a stricture at the GE junction. Interpreted and Authenticated by: All Lundberg 10/03/17
[2017-10-03 18:02] LABS: Magnesium 1.5 mg/dL (1.6-2.5)
--- NOTE | 2017-10-03 18:57 | Internal Med History&Physical ---
Medical - H&P: HPI Patient information: Note initiated : 10/03/17 at 6:55 pm Service Date, if different from initiated Date: [] Patient: Dayanna Stephens a 56 y/o F admitted on for Abd pain/constipation post ostomy. Chief Complaint: [] History of present illness: Ms. Stephens is a 56 year old Female with h/o volvulus of the sigmoid colon, s/ p recent surgery by Dr Currie and was being closely followed in the outpatient clinic, presents today to the ER because of pain in the abdomen x 3 days, pain is sharp in the mid abdomen, non radiating, no aggravating relieving factors, noted that it was progressively getting worse, with some distention. She also had some episodes of sweating and dizziness, she therefore presented to the ER for further evaluation. IN the ER The abdomen x ray/ CT scan showed small bowel obstruction. Patients labs unremarkable, patient has h/o chr hypocalcemia, myasthenia gravis, severe anxiety and depression, osteoarthritis, hypothyroidism, autoimmune polyglandular syndrome, sarcoidosis. She will be admitted to medical floor, Gen Surgery consulting for SBO. Radiology trying to place NG tube, under fluoroscopy. The patient notes she has chr arthritis for which she takes some pain mes She also had some pain in the hypogastric regin, sharp shooting, which was told to in the past as nerve pain, The patient will be admitted to tele for further monitoring and management. All systems: reviewed and no additional remarkable complaints except as stated ( as per hpi,) Medical - H&P: PMH Medical history: Medical History (Last Reviewed 10/02/17 @ 13:12 by Jayla Hay [facility]) Foot sprain (Acute) Anaphylaxis (Acute) Adverse reaction to drug (Acute) Severe sepsis (Acute) Pyelonephritis (Acute) Pneumonia (Acute) Myasthenia gravis (Acute) Polyglandular autoimmune syndrome (Acute) Sarcoidosis (Acute) Achalasia and cardiospasm (Acute) Hypothyroidism (Acute) UTI (urinary tract infection) (Acute) Infiltrate of lung present on imaging of chest (Acute) Small bowel obstruction, partial (Acute) Pancreatitis (Acute) Myasthenia gravis (Acute) Volume depletion (Acute) Partial intestinal obstruction, unspecified as to cause (Resolved) Constipation due to pain medication therapy (Acute) Supraventricular tachycardia (Acute) Sigmoid volvulus (Acute) Volvulus of sigmoid colon (Acute) Pseudoobstruction of colon (Chronic) Small bowel obstruction (Acute) Surgical history: sigmoid volvulus, s/o surgery. Family history: reviewed and not pertinent Medical - H&P: Meds Home Medications Medication Instructions Recorded Confirmed Type predniSONE [Prednisone] 20 mg PO QAC #4 tab 05/18/16 10/02/17 Rx Calcitriol 0.25 mcg PO TID 11/30/16 10/02/17 History DULoxetine [Cymbalta] 30 mg PO BID 11/30/16 10/02/17 History Linaclotide [Linzess] 72 mcg PO DAILY 11/30/16 10/02/17 History Nitroglycerin 0.4 mg PO PRN PRN 11/30/16 10/02/17 History Omeprazole 20 mg PO BID 11/30/16 10/02/17 History Levothyroxine [Synthroid] 250 mcg PO QAMAC 08/20/17 10/02/17 History Acetaminophen W/Codeine #3 2 cap PO Q4-6HP PRN 09/18/17 10/02/17 History [Tylenol #3] Calcium Carbonate 1,200 mg PO BID 09/18/17 10/02/17 History Naproxen (Pp) [Aleve (Pp)] 2 tab PO BID 09/18/17 10/02/17 History Polyethylene Glycol 3350 [Miralax] 17 gm PO BID 09/18/17 10/02/17 History oxyCODONE HCL [Oxycodone HCl] 5 - 10 mg PO Q4H PRN 5 Days #300 09/27/17 Rx ml NS amoxicillin 500 mg-potassium 1 tab PO Q12H #10 tab 10/02/17 10/02/17 Rx clavulanate 125 mg tablet Allergies Allergy/AdvReac Type Severity Reaction Status Date / Time Sulfa (Sulfonamide Allergy Severe Anaphylaxis Verified 10/02/17 13:11 Antibiotics) metoclopramide [From Reglan] AdvReac Intermediate Anxiety Verified 10/02/17 13: 11 steri strips Allergy Severe Blister Uncoded 10/02/17 13:11 Medical - H&P: Exam - Constitutional Vitals: Temp Pulse Resp BP Pulse Ox 97.1 F 117 H 25 H 133/78 98 10/03/17 13:44 10/03/17 16:49 10/03/17 16:49 10/03/17 16:49 10/03/17 16:49 Exam: GENERAL: The patient is a well-developed, well-nourished in no apparent distress. Is alert and oriented x3. VITAL SIGNS: Reviewed and as noted elsewhere. HEENT: Head is normocephalic and atraumatic. Extraocular muscles are intact. Pupils are equal, round, and reactive to light. Nares appeared normal. Mouth appears any without lesions. Mucous membranes are moist. NECK: Normal to inspection, Supple, No lymphadenopathy or thyromegaly. LUNGS: Air entry equal on both sides, no wheezing, crackles or rhonchi noted. No accessory muscles of respiration HEART: tachycardic rate and rhythm normal, S1 and S2 heard, no Gallop, S3 or Rub Noted, No Gross murmur heard. ABDOMEN: Soft, nontender, and nondistended. absent Bowel sounds. No hepatosplenomegaly was noted. large pannus. EXTREMITIES: No cyanosis, clubbing, rash, lesions or edema. NEUROLOGIC: Cranial nerves II through XII are grossly intact. Motor and Sensory System Grossly Intact PSYCHIATRIC: Normal affect, Normal Mood. Appropriate Behavior. SKIN: No ulceration or wounds noted, No jaundice, No rash noted. Medical - H&P: Reslt - Labs CBC & Chem 7: 10/03/17 15:14 10/03/17 15:14 Labs: Short CBC 10/03/17 Range/Units 15:14 WBC 9.5 (4.5-11.0) K/mcL Hgb 12.9 (12.0-15.0) g/dL Hct 38.3 (36.0-48.0) % Plt Count 318 (140-440) K/mcL BMP 10/03/17 15:14 Sodium 132 L Potassium 3.4 Chloride 89 L Carbon Dioxide 29 BUN 12 Creatinine 0.6 Glucose 191 H Calcium 8.5 L Liver Function 10/03/17 Range/Units 15:14 Total Bilirubin 0.3 (0.0-1.0) mg/dL AST 14 (0-37) U/l ALT 14 (0-40) U/l Alkaline Phosphatase 74 (39-117) U/L Albumin 3.2 (3.2-5.2) gm/dL Medical - H&P: A/P - Narrative A/P Narrative: A/P Small bowel obstruction Hypocalcemia Myasthenia gravis/ Sarcoidosis Morbid Obesity Tachycardia, secondary to anxiety/ GI issues, (has been worked up in the past, and her HR improves with improvemet in GI symptoms, Hypothyroidims Hypomagnesemia Osteoarthritis Plan Monitor on tele tonight, Surgery to follow on SBO appreciate their help HR is elevated, but has been chronically in previous admissions IV mag replacement IV pain meds check tsh, t4 and t3, as it was low in the last admission. continue with steroids, switch to IV continue PO calcitriol 0.5 mcg tid, via NG tube, will consider holding suction x 1 hr after med admisistration IV famotid, Resume home meds as tolerated Hep sq for dvt prophylaxis NPO for now Full code. Social History - Tobacco smoking status: Never smoker
[2017-10-03] MEDS ORDERED: MIDAZOLAM 2 MG/2 ML VIAL IV ONE (18:59)
[2017-10-03] MEDS ORDERED: fentaNYL 100 MCG/2 ML VIAL IV ONE ×2 (18:59→19:09)
[2017-10-03] MEDS ORDERED: MIDAZOLAM 2 MG/2 ML VIAL ONE (19:09)
[2017-10-03] MEDS ORDERED: ALBUTEROL SULFATE 2.5 MG/3 ML NEBULIZER NEB PRN (20:25)
[2017-10-03] MEDS ORDERED: MAGNESIUM SULFATE 32.48 MEQ in DEXTROSE 5% IN WATER 100 ML IV ONE (20:25)
[2017-10-03] MEDS ORDERED: NALOXONE HCL 0.4 MG/ML VIAL IV PRN (20:25)
[2017-10-03] MEDS: DEXTROSE 5%-1/2NS W/40MEQ KCL 1,000 ML IV SCH (20:41)
[2017-10-03] MEDS: 0.9 % SODIUM CHLORIDE 10 ML SYRINGE IV SCH (21:34)
[2017-10-03] MEDS: CALCITRIOL 0.25 MCG CAPSULE PT SCH (21:34)
[2017-10-03] MEDS: FAMOTIDINE/PF 20 MG/2 ML VIAL IV SCH (21:34)
[2017-10-03] MEDS: HEPARIN 5,000 UNIT/ML VIAL SQ SCH (21:34)
[2017-10-03] MEDS ORDERED: MAGNESIUM SULFATE 8.12 MEQ/2 ML VIAL ONE (21:35)
[2017-10-03] MEDS ORDERED: MAGNESIUM SULFATE 4 GM/100 ML BAG IV ONE (21:39)
--- NOTE | 2017-10-03 23:39 | Consultation ---
DATE OF CONSULTATION: 10/03/2017 CHIEF COMPLAINT: No bowel movements for 48 hours. Findings consistent with bowel obstruction on CT imaging. HISTORY OF PRESENT ILLNESS: The patient is a 56-year-old woman known to surgical service from recent sigmoid resection for sigmoid volvulus. She underwent surgery by Dr. Currie earlier this month for this, and a Wilberto's procedure was done after sigmoid resection. She was discharged from the hospital last week, at which time she was tolerating a regular diet and passing stool through her ostomy and overall doing well. Subsequent to her discharge, she started to develop some discharge from her wound, for which she was seen in the office. The wound was opened in the inferior aspect with packing instituted. On the subsequent day, she had reported some sensation of nausea and had a decreased output from her ostomy. She was to be seen in clinic again tomorrow, but patient presented to the Emergency Department today because of persistent nausea and the lack of passage of any stool from her ostomy. On evaluation in the emergency department, imaging of the abdomen showed findings consistent with bowel obstruction. The patient was admitted for this. PAST MEDICAL HISTORY: Myasthenia gravis, polyglandular autoimmune syndrome, sarcoidosis, achalasia, hypothyroidism, sigmoid resection for volvulus as per HPI, partial small-bowel obstruction in the past. REVIEW OF SYSTEMS: Constitutional: Patient denies chills or fever. She has had some episodes of sweating. Cardiovascular: She denies chest pain or pressure. Pulmonary: Denies any shortness of breath. MEDICATIONS: Home medications include: Prednisone. Calcitriol. Duloxetine. Linaclotide. Nitroglycerin. Omeprazole. Levothyroxine. Calcium carbonate. Naproxen. Polyethylene glycol. Oxycodone. Augmentin. ALLERGIES: SULFA, METOCLOPRAMIDE and STERI-STRIPS. PHYSICAL EXAMINATION: VITAL SIGNS: Temperature 97.1, pulse 117, respirations 25, blood pressure 133/78, O2 saturations are 98 percent on room air. GENERAL APPEARANCE: Ms. Stephens is a 56-year-old woman who appears her stated age who is not acutely distressed, but appears uncomfortable. HEENT: Head is normocephalic. Sclerae are white. Mucous membranes are moist. CHEST: Breath sounds are clear bilaterally. No rales or wheezes are heard. No accessory muscle use. CARDIOVASCULAR: Regular rhythm, tachycardic. ABDOMEN: Obese, soft and nontender. Ostomy is present on the left side of the abdomen with pink mucosa, but scant amounts of stool within the folds of the ostomy bag. No air in the appliance. The incision is intact with kori still in place, but there is some erythema that has developed around the kori, some of which appears reactive but other areas that are questionably related to underlying fluid, for which the wound was previously opened. EXTREMITIES: Distal extremities are warm. LABS AND STUDIES: CBC shows a white blood cell count of 9.5, hemoglobin is 12.9, hematocrit 38.3, platelets of 318. Serum chemistry shows a sodium of 132, potassium 3.4, chloride 89, CO2 of 29, BUN 12, creatinine 0.6, glucose 191, calcium 8.5, magnesium 1.5. Total bilirubin 0.3, AST 14, ALT 14, alkaline phosphatase 74, total protein 6.1, albumin 3.2 and globulin 2.9. TSH is 0.15. CT scan of the abdomen and pelvis was performed after abdominal x-ray showed distended loops of small bowel consistent with bowel obstruction. I have reviewed the images from small bowel x-ray as well as CT scan images. There appears to be a transition point in the distal jejunum with distended small bowel proximal to this and decompressed small bowel distal to this transition point in the right lower quadrant. Stool is noted in the colon. No free fluid noted. ASSESSMENT AND PLAN: Small bowel obstruction. Status post recent abdominal surgery. Initial management will be conservative with nasogastric tube decompression and IV fluid hydration. Given recent surgery and the time from where we are from her original operation, reentry into the abdomen is expected to be difficult due to the amount of expected inflammation at this stage in healing. If we can avoid this, this would be ideal. We will follow patient's clinical progress. Kerwin Job ID: [id number] Doc ID: [id number] Padma Pulliam MD
[2017-10-04] MEDS: HYDROmorphone 2 MG/ML SYRINGE IV PRN ×7 (02:23→21:13)
[2017-10-04 05:04] LABS: Basophils # (Auto) 0 K/mcL (0.0-0.3); Basophils % (Auto) 0.3 % (0.0-2.0); Eosinophils # (Auto) 0.2 K/mcL (0.0-0.7); Granulocytes % (Auto) 67.7 % (38.0-78.0); Lymphocytes # (Auto) 0.9 K/mcL (1.5-4.8); Lymphocytes % (Auto) 15.8 % (15.5-49.0); Mean Cell Volume 91.8 fL (80.0-100.0); Mean Corpuscular HGB Conc 32.5 g/dL (31.0-36.0); Mean Corpuscular Hemoglobin 29.8 pg (26.0-34.0); Monocytes # (Auto) 0.8 K/mcL (0.1-0.9); Monocytes % (Auto) 13.2 % (1.0-12.0); Platelet Count 232 K/mcL (140-440); RBC 3.31 M/mcL (4.00-5.20); Red Cell Distribution Width 14.8 % (11.5-14.5)
[2017-10-04] MEDS: 0.9 % SODIUM CHLORIDE 10 ML SYRINGE IV SCH ×3 (05:11→20:39)
[2017-10-04 05:31] LABS: Free T4 (Free Thyroxine) 0.96 ng/dl (0.7-1.7)
--- NOTE | 2017-10-04 06:44 | XRay Report ---
CLINICAL INFORMATION: Fluoroscopic guided NG tube placement or high-grade jejunal obstruction decompression TECHNIQUE: Procedure and risks were explained the patient. She understood and wished to proceed. She was medicated prior to, and during, the procedure with a total of 2 mg of versed and 100 mcg of fentanyl given intravenously. Blood pressure and pulse oximeter monitored. She maintained consciousness during the procedure. Total sedation time 35 minutes. With the patient supine on fluoroscopy table, the right nares was topically anesthetized with viscous lidocaine and Cetacaine spray was used to top anesthetized oropharynx. NG tube was placed via the right nares through the pharynx and esophagus into the stomach under fluoroscopic guidance. Final image shows the tube coiled within the gastric body and fundus. Gastric aspirate was achieved following tube placement. The tube was secured to the nose with tape. No apparent complication. Total fluoroscopy time 15 minutes 47 seconds IMPRESSION: Successful fluoroscopic guided placement of NG tube achieving moderate gastric aspirate. No apparent complication Interpreted and Authenticated by: All Lundberg 10/04/17
[2017-10-04] MEDS: DEXTROSE 5%-1/2NS W/40MEQ KCL 1,000 ML IV SCH ×3 (08:19→17:04)
[2017-10-04 08:20] LABS: ALT/SGPT 13 U/l (0-40); Albumin/Globulin Ratio 1.2 (1.0-2.3); Alkaline Phosphatase 59 U/L (39-117); Bilirubin,Direct < 0.2 mg/dL (0.0-0.3); Blood Urea Nitrogen 10 mg/dl (6-20); Gamma Glutamyl Transpeptidase 30 U/L (5-36); Uric Acid 4.3 mg/dL (2.5-8.0)
[2017-10-04] MEDS: HEPARIN 5,000 UNIT/ML VIAL SQ SCH ×2 (08:20→20:37)
[2017-10-04] MEDS: FAMOTIDINE/PF 20 MG/2 ML VIAL IV SCH ×2 (08:20→20:37)
[2017-10-04] MEDS: CALCITRIOL 0.25 MCG CAPSULE PT SCH ×3 (08:21→20:37)
[2017-10-04] MEDS ORDERED: methylPREDNISolone SOD SUCC 40 MG/ML VIAL IV SCH (09:00)
--- NOTE | 2017-10-04 09:30 | XRay Report ---
CLINICAL INFORMATION: Distal jejunal obstruction FINDINGS: NG tube in place since previous study. Sidehole overlies the gastric body and the tip overlies the gastric rs. The stomach and proximal small bowel have decreased in caliber following NG decompression, but remain mildly dilated. There is no appreciable gas seen within the colon. IMPRESSION: Improvement in high-grade distal jejunal obstruction following NG decompression. Interpreted and Authenticated by: All Lundberg 10/04/17
--- NOTE | 2017-10-04 09:32 | General Surgery Progress Note ---
Surgical - Auxillary Note - Subjective Patient Information: Note initiated : 10/04/17 at 9:27 am Service Date, if different from initiated Date: [] Patient: Dayanna Stephens 56 y/o F admitted on 10/03/17 for Abd Pain/ Constipation Post Ostomy/Small Bowel Obst. Chief Complaint: [] Patient resting in bed. Feeling better this morning. Nausea improved. No flatus or stool in appliance. NGT had to be placed under fluoroscopy yesterday due to distal esophageal stricture. NGT output bilious. Vital Signs Temp Pulse Resp BP Pulse Ox 97.9 F 113 H 18 128/78 98 10/04/17 04:00 10/04/17 04:00 10/04/17 04:00 10/04/17 04:00 10/04/17 04:00 Period Temp Pulse Resp BP Sys/Archuleta Pulse Ox Last 24 Hr 97.1 F-99.5 F 113-155 17-25 127-158/74-106 97-100 Intake and Output 10/03/17 10/04/17 10/04/17 21:59 05:59 13:59 Intake Total 1000 / 1000 2100 / 2100 Output Total 100 / 100 1400 / 1400 Balance 900 / 900 -1400 / -1400 2100 / 2100 Weight 241 lb PE: No distress Chest: clear bilaterally in upper coronel, diminished at bases but no rales or wheezes heard CV: regular rhythm, tachy ABD: obese, soft, non tender to palpation. Ostomy pink, no stool or gas in appliance. Bowel sounds hypoactive. Wound re-packed at inferior aspect with tunneling superiorly. Drainage mostly serosanguineous. CBC and Chem 7 10/04/17 03:44 10/04/17 06:49 A/P: SBO: Abd xrays improved after NGT decompression. Continue NGT decompression and see if any relief of obstruction with conservative measures. Continue NPO. Ambulate in halls Wound infection. Wound repacked--continue daily. Cover with abx given need for steroids.
--- NOTE | 2017-10-04 09:37 | Internal Med Progress Note ---
Medical - PN: Subj Patient information: Note initiated : 10/04/17 at 9:35 am Service Date, if different from initiated Date: [] Patient: Dayanna Stephens 56 y/o F admitted on 10/03/17 for Abd Pain/ Constipation Post Ostomy/Small Bowel Obst. Chief Complaint: [] Interval history: Ms. Stephens is a 56 year old Female with h/o volvulus of the sigmoid colon, s/ p recent surgery by Dr Currie and was being closely followed in the outpatient clinic, presents today to the ER because of pain in the abdomen x 3 days, pain is sharp in the mid abdomen, non radiating, no aggravating relieving factors, noted that it was progressively getting worse, with some distention. She also had some episodes of sweating and dizziness, she therefore presented to the ER for further evaluation. IN the ER The abdomen x ray/ CT scan showed small bowel obstruction. Patients labs unremarkable, patient has h/o chr hypocalcemia, myasthenia gravis, severe anxiety and depression, osteoarthritis, hypothyroidism, autoimmune polyglandular syndrome, sarcoidosis. She will be admitted to medical floor, Gen Surgery consulting for SBO. Radiology trying to place NG tube, under fluoroscopy. The patient notes she has chr arthritis for which she takes some pain mes She also had some pain in the hypogastric regin, sharp shooting, which was told to in the past as nerve pain, The patient will be admitted to tele for further monitoring and management. Oct 04 Patient seen examined, doing well, some nausea, and her chr pain issues, not no new concerns reported she has NG tube with good drainage, X ray this AM is better Calcium was low, she is on high dose calcitriol replacement, mg is normal Pertinent ROS: Denies headache, dizziness Denies chest pain, palpitations Denies cough or shortness of breath Denies abdominal pain, present nausea, no vomiting. - Constitutional Vitals: Vital Signs Temp Pulse Resp BP Pulse Ox 97.9 F 113 H 18 128/78 98 10/04/17 04:00 10/04/17 04:00 10/04/17 04:00 10/04/17 04:00 10/04/17 04:00 Period Temp Pulse Resp BP Sys/Archuleta Pulse Ox Last 24 Hr 97.1 F-99.5 F 113-155 17-25 127-158/74-106 97-100 Intake and Output 10/03/17 10/04/17 10/04/17 21:59 05:59 13:59 Intake Total 1000 / 1000 2100 / 2100 Output Total 100 / 100 1400 / 1400 Balance 900 / 900 -1400 / -1400 2099 / 2100 Weight 241 lb Intake & Output: Intake & Output 10/03/17 10/04/17 10/04/17 21:59 05:59 13:59 Intake Total 1000 / 1000 2099 / 2100 Output Total 100 / 100 1400 / 1400 Balance 900 / 900 -1400 / -1400 2099 / 2100 Weight 241 lb Intake: IV 1000 / 1000 2099 / 2100 Sodium Chloride 0.9% 1,000 ml @ 1000 / 1000 Wide Open IV B[facility] Rx#: [id number] Dextrose 5%-1/2Ns W/40Meq KCl 1 1000 / 1000 ,000 ml @ 100 mls/hr IV .Q10H [facility] Rx#:[id number] Output: Gastric Drainage 100 / 100 600 / 600 Left Nare 100 / 100 600 / 600 Void Amount 800 / 800 Exam: Constitutional; Afebrile, cooperative, alert, not in distress. Eyes- No icterus, , No periorbital swelling Ears- Ext ear normal, hearing normal to conversation. Neck- Midline trachea, supple Respiratory system: Air Entry equal on both sides, No crackles or wheezing, no rhonchi. CVS- Rate rhythm regular, S1,S2 heard, no gallop, no rub. 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 Medical - PN: Obj Da - Labs CBC & Chem 7: 10/04/17 03:44 10/04/17 06:49 Labs: Abnormal Lab Results 10/04/17 10/04/17 10/03/17 06:49 03:44 15:14 RBC 3.31 L Hgb 9.9 L Hct 30.3 L RDW 14.8 H Lymph % (Auto) [place] % (Auto) 13.2 H Lymph # (Auto) 0.9 L [place] # (Auto) Sodium Chloride Creatinine 0.5 L Glucose 166 H Calcium 6.9 L Magnesium 1.5 L Total Protein 5.6 L Albumin 3.0 L Triglycerides 461 H TSH 0.15 L 10/03/17 10/03/17 15:14 15:14 RBC Hgb Hct RDW 14.6 H Lymph % (Auto) 12.7 L [place] % (Auto) Lymph # (Auto) 1.2 L [place] # (Auto) 1.1 H Sodium 132 L Chloride 89 L Creatinine Glucose 191 H Calcium 8.5 L Magnesium Total Protein Albumin Triglycerides TSH Meds: Medications Albuterol Sulfate (Ventolin) 2.5 mg NEB Q2HP PRN PRN Reason: Shortness Of Breath Calcitriol (Rocaltrol) 0.5 mcg PT TID [facility] Last Admin: 10/04/17 08:21 Dose: 0.5 mcg Famotidine (Pepcid) 20 mg IV Q12 [facility] Last Admin: 10/04/17 08:20 Dose: 20 mg Heparin Sodium (Porcine) (Heparin) 5,000 unit SQ Q12 [facility] Last Admin: 10/04/17 08:20 Dose: 5,000 unit Hydromorphone HCl (Dilaudid) 0.5 mg IV Q2HP PRN PRN Reason: PAIN LEVEL > 6 Last Admin: 10/04/17 08:32 Dose: 0.5 mg Potassium Chloride/Dextrose/Sod Cl (Dextrose 5%-1/2ns W/40meq Kcl) 1,000 mls @ 100 mls/hr IV .Q10H [facility] Last Admin: 10/04/17 08:19 Dose: 100 mls/hr Methylprednisolone Sodium Succinate (Solu-Medrol) 20 mg IV DAILY [facility] Last Admin: 10/04/17 08:20 Dose: 20 mg Naloxone HCl (Narcan) 0.1 mg IV Q2MIN PRN PRN Reason: Opiate Reversal Sodium Chloride (Saline Flush) 10 ml IV Q8 [facility] Last Admin: 10/04/17 05:11 Dose: Not Given Medical - PN: A/P - Time Spent With Patient Total time spent is greater than 50% in coordination of care (as documented) at patient's floor/unit and/or counseling patient: - Narrative A/P Narrative: A/P Small bowel obstruction Hypocalcemia Myasthenia gravis/ Sarcoidosis Morbid Obesity Tachycardia, secondary to anxiety/ GI issues, (has been worked up in the past, and her HR improves with improvemet in GI symptoms, Hypothyroidims Hypomagnesemia Osteoarthritis Plan patient stable overnight, xfer to med surg status Surgery to follow on SBO appreciate their help, pt has NG tube, which is draining well, X ray shows improvement otday. HR is elevated, but has been chronically in previous admissions IV mag replacement, mg 2.0 today, IV pain meds tsh low, but t3 and t4 is wn. continue with steroids, switch to IV for now, resume orals once able. continue PO calcitriol 0.5 mcg tid, via NG tube, will consider holding suction x 1 hr after med administration IV famotid, Resume home meds as tolerated Hep sq for dvt prophylaxis NPO for now Full code. Medical - PN: Qual - VTE Deep Vein Thrombosis/Pulmonary Embolism Present on Admission: No
[2017-10-04] MEDS ORDERED: NALOXONE HCL 0.4 MG/ML VIAL IV PRN (12:44)
[2017-10-04] MEDS ORDERED: ALBUTEROL SULFATE 2.5 MG/3 ML NEBULIZER NEB PRN (12:44)
[2017-10-05] MEDS: HYDROmorphone 2 MG/ML SYRINGE IV PRN ×7 (00:21→18:46)
[2017-10-05] MEDS: DEXTROSE 5%-1/2NS W/40MEQ KCL 1,000 ML IV SCH ×4 (00:57→17:15)
[2017-10-05] MEDS: 0.9 % SODIUM CHLORIDE 10 ML SYRINGE IV SCH ×4 (05:17→21:28)
[2017-10-05 06:51] LABS: Basophils # (Auto) 0 K/mcL (0.0-0.3); Basophils % (Auto) 0.3 % (0.0-2.0); Eosinophils # (Auto) 0.1 K/mcL (0.0-0.7); Eosinophils % (Auto) 3.7 % (0.0-7.0); Granulocytes % (Auto) 45.8 % (38.0-78.0); Lymphocytes # (Auto) 1.4 K/mcL (1.5-4.8); Mean Cell Volume 89.8 fL (80.0-100.0); Mean Corpuscular HGB Conc 33.6 g/dL (31.0-36.0); Mean Corpuscular Hemoglobin 30.2 pg (26.0-34.0); Monocytes # (Auto) 0.6 K/mcL (0.1-0.9); Monocytes % (Auto) 15.2 % (1.0-12.0); Platelet Count 237 K/mcL (140-440); RBC 3.46 M/mcL (4.00-5.20); Red Cell Distribution Width 14.3 % (11.5-14.5)
[2017-10-05 07:07] LABS: ALT/SGPT 12 U/l (0-40); Albumin 2.9 gm/dL (3.2-5.2); Albumin/Globulin Ratio 1.3 (1.0-2.3); Alkaline Phosphatase 52 U/L (39-117); Bilirubin,Direct < 0.2 mg/dL (0.0-0.3); Blood Urea Nitrogen 5 mg/dl (6-20); Gamma Glutamyl Transpeptidase 26 U/L (5-36); Magnesium 1.7 mg/dL (1.6-2.5); Uric Acid 4.2 mg/dL (2.5-8.0)
[2017-10-05] MEDS ORDERED: CALCIUM GLUCONATE 4.65 MEQ/10 ML VIAL IV ONE (07:25)
[2017-10-05] MEDS ORDERED: MAGNESIUM SULFATE 2 GM/50 ML BAG IV ONE (07:25)
[2017-10-05] MEDS ORDERED: CALCIUM GLUCONATE 4.65 MEQ in 0.9 % SODIUM CHLORIDE 50 ML IV ONE (07:30)
--- NOTE | 2017-10-05 08:53 | General Surgery Progress Note ---
Surgical - Auxillary Note - Subjective Patient Information: Note initiated : 10/05/17 at 8:22 am Service Date, if different from initiated Date: [] Patient: Dayanna Stephens 56 y/o F admitted on 10/03/17 for Abd Pain/ Constipation Post Ostomy/Small Bowel Obst. Chief Complaint: patient resting in bed. Denies nausea or abdominal pain. No flatus or stool in appliance. Patient questions whether she can try Milk of magnesia. Says she has had multiple episodes of SBO in the past and these resolved with NGT decompression and p.o. laxatives. Reports that after recent surgery MOM was given to get bowels going. Vital Signs Temp Pulse Resp BP Pulse Ox 97.4 F 88 16 152/66 96 10/05/17 06:43 10/05/17 04:00 10/05/17 06:43 10/05/17 06:43 10/05/17 06:43 Period Temp Pulse Resp BP Sys/Archuleta Pulse Ox Last 24 Hr 97.4 F-98.8 F 88-102 16-18 117-152/66-87 92-99 Intake and Output 10/04/17 10/05/17 10/05/17 21:59 05:59 13:59 Intake Total 1060 / 1060 Output Total 700 / 700 1150 / 1150 Balance -700 / -700 -90 / -90 Weight 233 lb 8 oz PE: No distress Chest: clear bilaterally CV: regular rate and rhythm ABD: soft, non tender. Bowel sounds present. Incision open at inferior aspect with serous drainage on packing. NGT in place with bilious output--clearing, not as thick or green as on admission. CBC and Chem 7 10/05/17 04:43 10/05/17 04:43 A/P: SBO Abdominal x rays pending. Will consider MOM as this has worked in the past if Xrays from today do not show worsening
--- NOTE | 2017-10-05 09:44 | XRay Report ---
CLINICAL INFORMATION: High-grade distal jejunal obstruction - follow up COMPARISON: 10/04/2017 FINDINGS: NG tube remains in the stomach with the tip overlies the gastric pylorus. The stomach and multiple loops of proximal small bowel show only a slight caliber decrease from yesterday's study. The distal small bowel and colon remain relatively decompressed. There is no free air. IMPRESSION: Only mild continued improvement in high-grade partial small bowel small bowel obstruction pattern following continued NG decompression Interpreted and Authenticated by: All Lundberg 10/05/17
[2017-10-05] MEDS ORDERED: MAGNESIUM CITRATE 300 ML ORAL.SOL PT ONE (10:30)
[2017-10-05] MEDS: methylPREDNISolone SOD SUCC 40 MG/ML VIAL IV SCH (10:37)
[2017-10-05] MEDS: CALCITRIOL 0.25 MCG CAPSULE PT SCH ×3 (10:38→20:29)
[2017-10-05] MEDS: HEPARIN 5,000 UNIT/ML VIAL SQ SCH ×2 (10:38→20:29)
[2017-10-05] MEDS: FAMOTIDINE/PF 20 MG/2 ML VIAL IV SCH ×2 (10:38→20:29)
--- NOTE | 2017-10-05 10:46 | Internal Med Progress Note ---
Medical - PN: Subj Patient information: Note initiated : 10/05/17 at 10:43 am Service Date, if different from initiated Date: [] Patient: Dayanna Stephens a 56 y/o F admitted on 10/03/17 for Abd Pain/ Constipation Post Ostomy/Small Bowel Obst. Chief Complaint: [] Interval history: Ms. Stephens is a 56 year old Female with h/o volvulus of the sigmoid colon, s/ p recent surgery by Dr Currie and was being closely followed in the outpatient clinic, presents today to the ER because of pain in the abdomen x 3 days, pain is sharp in the mid abdomen, non radiating, no aggravating relieving factors, noted that it was progressively getting worse, with some distention. She also had some episodes of sweating and dizziness, she therefore presented to the ER for further evaluation. IN the ER The abdomen x ray/ CT scan showed small bowel obstruction. Patients labs unremarkable, patient has h/o chr hypocalcemia, myasthenia gravis, severe anxiety and depression, osteoarthritis, hypothyroidism, autoimmune polyglandular syndrome, sarcoidosis. She will be admitted to medical floor, Gen Surgery consulting for SBO. Radiology trying to place NG tube, under fluoroscopy. The patient notes she has chr arthritis for which she takes some pain mes She also had some pain in the hypogastric regin, sharp shooting, which was told to in the past as nerve pain, The patient will be admitted to tele for further monitoring and management. Oct 04 Patient seen examined, doing well, some nausea, and her chr pain issues, not no new concerns reported she has NG tube with good drainage, X ray this AM is better Calcium was low, she is on high dose calcitriol replacement, mg is normal Oct 05 Patient seen examined, no acute overnight issues, some nausea, NG tube draining well has low mg and calcium, being replaced X ray shows not much improvement in SBO, plan for mag citrate by Surgery, will see how she does. Pertinent ROS: Denies headache, dizziness Denies chest pain, palpitations Denies cough or shortness of breath Denies abdominal pain, some nausea present, but no vomiting. . - Constitutional Vitals: Vital Signs Temp Pulse Resp BP Pulse Ox 97.4 F 88 16 152/66 96 10/05/17 06:43 10/05/17 04:00 10/05/17 06:43 10/05/17 06:43 10/05/17 06:43 Period Temp Pulse Resp BP Sys/Archuleta Pulse Ox Last 24 Hr 97.4 F-98.8 F 88-102 16-18 117-152/66-87 92-99 Intake and Output 10/04/17 10/05/17 10/05/17 21:59 05:59 13:59 Intake Total 1060 / 1060 Output Total 700 / 700 1150 / 1150 Balance -700 / -700 -90 / -90 Weight 233 lb 8 oz Intake & Output: Intake & Output 10/04/17 10/05/17 10/05/17 21:59 05:59 13:59 Intake Total 1060 / 1060 Output Total 700 / 700 1150 / 1150 Balance -700 / -700 -90 / -90 Weight 233 lb 8 oz Intake: IV 1000 / 1000 Dextrose 5%-1/2Ns W/40Meq KCl 1 1000 / 1000 ,000 ml @ 100 mls/hr IV .Q10H [facility] Rx#:[id number] Oral 60 / 60 Output: Gastric Drainage 500 / 500 Left Nare 500 / 500 Void Amount 700 / 700 650 / 650 Other: Percent of Meal Consumed Is NPO Exam: Constitutional; Afebrile, cooperative, alert, not in distress. Eyes- No icterus, , No periorbital swelling Ears- Ext ear normal, hearing normal to conversation. Neck- Midline trachea, supple Respiratory system: Air Entry equal on both sides, No crackles or wheezing, no rhonchi. CVS- Rate rhythm regular, S1,S2 heard, no gallop, no rub. 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 Medical - PN: Obj Da - Labs CBC & Chem 7: 10/05/17 04:43 10/05/17 04:43 Labs: Abnormal Lab Results 10/05/17 10/05/17 10/04/17 04:43 04:43 06:49 WBC 3.9 L RBC 3.46 L Hgb 10.4 L Hct 31.0 L RDW Lymph % (Auto) [place] % (Auto) 15.2 H Lymph # (Auto) 1.4 L [place] # (Auto) Sodium Chloride BUN 5 L Creatinine 0.5 L 0.5 L Glucose 143 H 166 H Calcium 6.2 L 6.9 L Magnesium Total Protein 5.2 L 5.6 L Albumin 2.9 L 3.0 L Triglycerides 497 H 461 H TSH 10/04/17 10/03/17 10/03/17 03:44 15:14 15:14 WBC RBC 3.31 L Hgb 9.9 L Hct 30.3 L RDW 14.8 H Lymph % (Auto) [place] % (Auto) 13.2 H Lymph # (Auto) 0.9 L [place] # (Auto) Sodium 132 L Chloride 89 L BUN Creatinine Glucose 191 H Calcium 8.5 L Magnesium 1.5 L Total Protein Albumin Triglycerides TSH 0.15 L 10/03/17 15:14 WBC RBC Hgb Hct RDW 14.6 H Lymph % (Auto) 12.7 L [place] % (Auto) Lymph # (Auto) 1.2 L [place] # (Auto) 1.1 H Sodium Chloride BUN Creatinine Glucose Calcium Magnesium Total Protein Albumin Triglycerides TSH Meds: Medications Albuterol Sulfate (Ventolin) 2.5 mg NEB Q2HP PRN PRN Reason: Shortness Of Breath Calcitriol (Rocaltrol) 0.5 mcg PT TID [facility] Last Admin: 10/05/17 10:38 Dose: 0.5 mcg Famotidine (Pepcid) 20 mg IV Q12 [facility] Last Admin: 10/05/17 10:38 Dose: 20 mg Heparin Sodium (Porcine) (Heparin) 5,000 unit SQ Q12 [facility] Last Admin: 10/05/17 10:38 Dose: 5,000 unit Hydromorphone HCl (Dilaudid) 0.5 mg IV Q2HP PRN PRN Reason: PAIN LEVEL > 6 Last Admin: 10/05/17 09:56 Dose: 0.5 mg Potassium Chloride/Dextrose/Sod Cl (Dextrose 5%-1/2ns W/40meq Kcl) 1,000 mls @ 100 mls/hr IV .Q10H [facility] Last Admin: 10/05/17 03:24 Dose: 100 mls/hr Acetaminophen (Ofirmev) 1,000 mg in 100 mls @ 200 mls/hr IV Q8HP PRN PRN Reason: PAIN/FEVER > 101 Methylprednisolone Sodium Succinate (Solu-Medrol) 20 mg IV DAILY [facility] Last Admin: 10/05/17 10:37 Dose: 20 mg Naloxone HCl (Narcan) 0.1 mg IV Q2MIN PRN PRN Reason: Opiate Reversal Sodium Chloride (Saline Flush) 10 ml IV Q8 [facility] Last Admin: 10/05/17 05:17 Dose: Not Given Medical - PN: A/P - Time Spent With Patient Total time spent is greater than 50% in coordination of care (as documented) at patient's floor/unit and/or counseling patient: - Narrative A/P Narrative: A/P Small bowel obstruction: still persisits, trial of mag citrate today, to see if this helps. Surgery following. Hypocalcemia: lyle low today, replace IV, on calcitriol via NG tube, but given that she has suction, not sure how much she is absorbing. 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 Morbid Obesity: PCP to follow Tachycardia, secondary to anxiety/ GI issues, (has been worked up in the past, and her HR improves with improvemet in GI symptoms,: HR stable thsis time, tsh low but t3 and t4 wnl. hypothyroidism : low tsh, normal t3, t4, resume dose once able to tolerate po. Osteoarthritis: Prn IV tylenol. Hep sq for dvt prophylaxis NPO for now Full code. Medical - PN: Qual - VTE Deep Vein Thrombosis/Pulmonary Embolism Present on Admission: No
[2017-10-05] MEDS: ACETAMINOPHEN 1,000 MG/100 ML BOTTLE IV PRN ×2 (11:39→21:23)
[2017-10-05] MEDS ORDERED: LORazepam 2 MG/ML VIAL IV ONE (20:01)
[2017-10-05] MEDS: PHENOL/SODIUM PHENOLATE 5 SPRAY BOTTLE 180ML SSP PRN (22:38)
[2017-10-05] MEDS ORDERED: LORazepam 2 MG/ML VIAL ONE ×2 (22:55→23:44)
[2017-10-06] MEDS: PHENOL/SODIUM PHENOLATE 5 SPRAY BOTTLE 180ML SSP PRN ×7 (03:58→21:24)
[2017-10-06] MEDS: DEXTROSE 5%-1/2NS W/40MEQ KCL 1,000 ML IV SCH ×3 (05:04→22:39)
[2017-10-06] MEDS: 0.9 % SODIUM CHLORIDE 10 ML SYRINGE IV SCH ×5 (05:24→20:00)
[2017-10-06 05:39] LABS: Basophils # (Auto) 0 K/mcL (0.0-0.3); Basophils % (Auto) 0.3 % (0.0-2.0); Eosinophils # (Auto) 0.1 K/mcL (0.0-0.7); Eosinophils % (Auto) 2.5 % (0.0-7.0); Granulocytes % (Auto) 49.2 % (38.0-78.0); Lymphocytes # (Auto) 1.2 K/mcL (1.5-4.8); Lymphocytes % (Auto) 32.2 % (15.5-49.0); Mean Cell Volume 88.7 fL (80.0-100.0); Mean Corpuscular HGB Conc 33.9 g/dL (31.0-36.0); Mean Corpuscular Hemoglobin 30.1 pg (26.0-34.0); Monocytes # (Auto) 0.6 K/mcL (0.1-0.9); Monocytes % (Auto) 15.8 % (1.0-12.0); Platelet Count 237 K/mcL (140-440); Red Cell Distribution Width 14.6 % (11.5-14.5)
[2017-10-06 07:05] LABS: Basophils # (Auto) 0 K/mcL (0.0-0.3); Basophils % (Auto) 0.3 % (0.0-2.0); Eosinophils # (Auto) 0.1 K/mcL (0.0-0.7); Eosinophils % (Auto) 3.1 % (0.0-7.0); Granulocytes % (Auto) 59.1 % (38.0-78.0); Lymphocytes % (Auto) 23.6 % (15.5-49.0); Mean Cell Volume 88.8 fL (80.0-100.0); Mean Corpuscular HGB Conc 33.5 g/dL (31.0-36.0); Mean Corpuscular Hemoglobin 29.8 pg (26.0-34.0); Monocytes # (Auto) 0.6 K/mcL (0.1-0.9); Monocytes % (Auto) 13.9 % (1.0-12.0); Platelet Count 226 K/mcL (140-440); RBC 3.58 M/mcL (4.00-5.20); Red Cell Distribution Width 14.2 % (11.5-14.5)
--- NOTE | 2017-10-06 07:23 | XRay Report ---
CLINICAL INFORMATION: PICC PLACEMENT COMPARISON: None. FINDINGS: PICC line tip overlies the SVC left brachiocephalic junction. Borderline cardiomegaly is unchanged mediastinum and pulmonary vessels are normal. Lungs are clear. No effusions. Right diaphragm mildly elevated as before. NG tube extends off the edge of probably the gastric body. IMPRESSION: No acute cardiopulmonary disease. PICC line tip overlies the brachycephalic SVC junction. Interpreted and Authenticated by: All Lundberg 10/06/17
[2017-10-06 07:33] LABS: ALT/SGPT 13 U/l (0-40); Albumin/Globulin Ratio 1.2 (1.0-2.3); Alkaline Phosphatase 55 U/L (39-117); Bilirubin,Direct < 0.2 mg/dL (0.0-0.3); Blood Urea Nitrogen 5 mg/dl (6-20); Gamma Glutamyl Transpeptidase 26 U/L (5-36); Magnesium 1.7 mg/dL (1.6-2.5); Uric Acid 4.2 mg/dL (2.5-8.0)
[2017-10-06] MEDS ORDERED: CALCIUM GLUCONATE 4.65 MEQ/10 ML VIAL IV ONE (07:34)
[2017-10-06] MEDS: ACETAMINOPHEN 1,000 MG/100 ML BOTTLE IV PRN ×3 (07:46→23:52)
[2017-10-06] MEDS ORDERED: CALCIUM GLUCONATE 9.3 MEQ in DEXTROSE 5% IN WATER 100 ML IV ONE (08:00)
[2017-10-06] MEDS: HEPARIN 5,000 UNIT/ML VIAL SQ SCH ×2 (09:27→20:00)
[2017-10-06] MEDS ORDERED: MAGNESIUM SULFATE 2 GM/50 ML BAG IV ONE (09:27)
[2017-10-06] MEDS: FAMOTIDINE/PF 20 MG/2 ML VIAL IV SCH ×2 (09:27→19:59)
[2017-10-06] MEDS: CALCITRIOL 0.25 MCG CAPSULE PT SCH ×3 (09:28→20:00)
[2017-10-06] MEDS: methylPREDNISolone SOD SUCC 40 MG/ML VIAL IV SCH (09:28)
--- NOTE | 2017-10-06 10:37 | General Surgery Progress Note ---
Surgical - Auxillary Note - Subjective Patient Information: Note initiated : 10/06/17 at 10:31 am Service Date, if different from initiated Date: [] Patient: Dayanna Stephens 56 y/o F admitted on 10/03/17 for Abd Pain/ Constipation Post Ostomy/Small Bowel Obst. Chief Complaint: [] Patient sitting up in bed. Reports "good news". Says she has passed some stool through the ostomy. Denies abdominal pain or nausea. Rested well last night. Vital Signs Temp Pulse Resp BP Pulse Ox 99.2 F H 97 H 20 125/83 93 10/06/17 08:51 10/06/17 04:00 10/06/17 06:52 10/06/17 06:52 10/06/17 06:52 Period Temp Pulse Resp BP Sys/Archuleta Pulse Ox Last 24 Hr 97.9 F-100.4 F 90-102 16-20 122-139/79-85 93-98 Intake and Output 10/05/17 10/06/17 10/06/17 21:59 05:59 13:59 Intake Total 240 / 240 1250 / 1250 Output Total 1150 / 1150 1200 / 1200 475 / 475 Balance -910 / -910 50 / 50 -475 / -475 Weight 230 lb PE: No distress. Abd: soft, Non tender to palpation. Liquid stool and some gas in ostomy appliance. Incision with mild erythema. No significant drainage on outer wound bandage. Packing also with less drainage. CBC and Chem 7 10/06/17 06:28 10/06/17 06:28 A/P: SBO: passing some stool and flatus. By hx patient has issues with recurrent PSBO. Will continue conservative management for as long as she seems to be improving. Wound infection vs seroma. Wound dressings being done daily.
--- NOTE | 2017-10-06 11:01 | Internal Med Progress Note ---
Medical - PN: Subj Patient information: Note initiated : 10/06/17 at 10:53 am Service Date, if different from initiated Date: [] Patient: Dayanna Stephens a 56 y/o F admitted on 10/03/17 for Abd Pain/ Constipation Post Ostomy/Small Bowel Obst. Chief Complaint: [] Interval history: Ms. Stephens is a 56 year old Female with h/o volvulus of the sigmoid colon, s/ p recent surgery by Dr Currie and was being closely followed in the outpatient clinic, presents today to the ER because of pain in the abdomen x 3 days, pain is sharp in the mid abdomen, non radiating, no aggravating relieving factors, noted that it was progressively getting worse, with some distention. She also had some episodes of sweating and dizziness, she therefore presented to the ER for further evaluation. IN the ER The abdomen x ray/ CT scan showed small bowel obstruction. Patients labs unremarkable, patient has h/o chr hypocalcemia, myasthenia gravis, severe anxiety and depression, osteoarthritis, hypothyroidism, autoimmune polyglandular syndrome, sarcoidosis. She will be admitted to medical floor, Gen Surgery consulting for SBO. Radiology trying to place NG tube, under fluoroscopy. The patient notes she has chr arthritis for which she takes some pain mes She also had some pain in the hypogastric regin, sharp shooting, which was told to in the past as nerve pain, The patient will be admitted to tele for further monitoring and management. Oct 04 Patient seen examined, doing well, some nausea, and her chr pain issues, not no new concerns reported she has NG tube with good drainage, X ray this AM is better Calcium was low, she is on high dose calcitriol replacement, mg is normal Oct 05 Patient seen examined, no acute overnight issues, some nausea, NG tube draining well has low mg and calcium, being replaced X ray shows not much improvement in SBO, plan for mag citrate by Surgery, will see how she does. Oct 06 patient seen examined, no acute overnight issues, has low grade temp, but no obvious source plan to check CXR and X ray abdomen today, check procalcitonin and ua patient now has some improved output in the stoma, with some gas, calcium level is 6.0, replace IV, mg 1.7, replace. Pertinent ROS: Denies headache, dizziness Denies chest pain, palpitations Denies cough or shortness of breath Denies abdominal pain, nausea or vomiting. - Constitutional Vitals: Vital Signs Temp Pulse Resp BP Pulse Ox 99.2 F H 97 H 20 125/83 93 10/06/17 08:51 10/06/17 04:00 10/06/17 06:52 10/06/17 06:52 10/06/17 06:52 Period Temp Pulse Resp BP Sys/Archuleta Pulse Ox Last 24 Hr 97.9 F-100.4 F 90-102 16-20 122-139/79-85 93-98 Intake and Output 10/05/17 10/06/17 10/06/17 21:59 05:59 13:59 Intake Total 240 / 240 1250 / 1250 Output Total 1150 / 1150 1200 / 1200 475 / 475 Balance -910 / -910 50 / 50 -475 / -475 Weight 230 lb Intake & Output: Intake & Output 10/05/17 10/06/17 10/06/17 21:59 05:59 13:59 Intake Total 240 / 240 1250 / 1250 Output Total 1150 / 1150 1200 / 1200 475 / 475 Balance -910 / -910 50 / 50 -475 / -475 Weight 230 lb Intake: IV 100 / 100 1100 / 1100 Dextrose 5%-1/2Ns W/40Meq KCl 1 1000 / 1000 ,000 ml @ 100 mls/hr IV .Q10H [facility] Rx#:[id number] Oral 140 / 140 150 / 150 Output: Gastric Drainage 550 / 550 Right Nare 550 / 550 Void Amount 1150 / 1150 650 / 650 350 / 350 Stool 125 / 125 Other: # Voids 1 Exam: Constitutional; Afebrile, cooperative, alert, not in distress. Eyes- No icterus, , No periorbital swelling Ears- Ext ear normal, hearing normal to conversation. Neck- Midline trachea, supple Respiratory system: Air Entry equal on both sides, No crackles or wheezing, no rhonchi. CVS- Rate rhythm regular, S1,S2 heard, no gallop, no rub. Abdomen- Soft nontender abdomen, no organomegaly, no tenderness, no guarding or rigidity, CLERICAL RECEPTIONIST- AOOx3, moving all extremities, no gross focal deficit noted. Medical - PN: Obj Da - Labs CBC & Chem 7: 10/06/17 06:28 10/06/17 06:28 Labs: Abnormal Lab Results 10/06/17 10/06/17 10/06/17 06:28 06:28 04:35 WBC 4.2 L 3.7 L RBC 3.58 L 3.50 L Hgb 10.7 L 10.5 L Hct 31.8 L 31.1 L RDW 14.6 H MPV 7.1 L Lymph % (Auto) [place] % (Auto) 13.9 H 15.8 H Lymph # (Auto) 1.0 L 1.2 L [place] # (Auto) Sodium Chloride BUN 5 L Creatinine 0.5 L Glucose 141 H Calcium 6.0 L* Magnesium Total Protein 5.6 L Albumin 3.0 L Triglycerides 480 H TSH 10/05/17 10/05/17 10/04/17 04:43 04:43 06:49 WBC 3.9 L RBC 3.46 L Hgb 10.4 L Hct 31.0 L RDW MPV Lymph % (Auto) [place] % (Auto) 15.2 H Lymph # (Auto) 1.4 L [place] # (Auto) Sodium Chloride BUN 5 L Creatinine 0.5 L 0.5 L Glucose 143 H 166 H Calcium 6.2 L 6.9 L Magnesium Total Protein 5.2 L 5.6 L Albumin 2.9 L 3.0 L Triglycerides 497 H 461 H TSH 10/04/17 10/03/17 10/03/17 03:44 15:14 15:14 WBC RBC 3.31 L Hgb 9.9 L Hct 30.3 L RDW 14.8 H MPV Lymph % (Auto) [place] % (Auto) 13.2 H Lymph # (Auto) 0.9 L [place] # (Auto) Sodium 132 L Chloride 89 L BUN Creatinine Glucose 191 H Calcium 8.5 L Magnesium 1.5 L Total Protein Albumin Triglycerides TSH 0.15 L 10/03/17 15:14 WBC RBC Hgb Hct RDW 14.6 H MPV Lymph % (Auto) 12.7 L [place] % (Auto) Lymph # (Auto) 1.2 L [place] # (Auto) 1.1 H Sodium Chloride BUN Creatinine Glucose Calcium Magnesium Total Protein Albumin Triglycerides TSH Meds: Medications Albuterol Sulfate (Ventolin) 2.5 mg NEB Q2HP PRN PRN Reason: Shortness Of Breath Calcitriol (Rocaltrol) 0.5 mcg PT TID [facility] Last Admin: 10/06/17 09:28 Dose: 0.5 mcg Famotidine (Pepcid) 20 mg IV Q12 [facility] Last Admin: 10/06/17 09:27 Dose: 20 mg Heparin Sodium (Porcine) (Heparin) 5,000 unit SQ Q12 [facility] Last Admin: 10/06/17 09:27 Dose: 5,000 unit Heparin Sodium (Porcine) (Heparin Flush) 2 ml IV Q12 [facility] Last Admin: 10/05/17 20:02 Dose: 2 ml Hydromorphone HCl (Dilaudid) 0.5 mg IV Q2HP PRN PRN Reason: PAIN LEVEL > 6 Last Admin: 10/05/17 18:46 Dose: 0.5 mg Potassium Chloride/Dextrose/Sod Cl (Dextrose 5%-1/2ns W/40meq Kcl) 1,000 mls @ 100 mls/hr IV .Q10H [facility] Last Admin: 10/06/17 05:04 Dose: 100 mls/hr Acetaminophen (Ofirmev) 1,000 mg in 100 mls @ 200 mls/hr IV Q8HP PRN PRN Reason: PAIN/FEVER > 101 Last Admin: 10/06/17 07:46 Dose: 200 mls/hr Methylprednisolone Sodium Succinate (Solu-Medrol) 20 mg IV DAILY [facility] Last Admin: 10/06/17 09:28 Dose: 20 mg Naloxone HCl (Narcan) 0.1 mg IV Q2MIN PRN PRN Reason: Opiate Reversal Phenol (Chloroseptic [place]) 5 spray SSP Q2HP PRN PRN Reason: Sore Throat Last Admin: 10/06/17 06:32 Dose: 5 spray Sodium Chloride (Saline Flush) 10 ml IV Q8 [facility] Last Admin: 10/06/17 05:24 Dose: 10 ml Sodium Chloride (Saline Flush) 10 ml IV Q12 [facility] Last Admin: 10/06/17 09:45 Dose: 10 ml Medical - PN: A/P - Time Spent With Patient Total time spent is greater than 50% in coordination of care (as documented) at patient's floor/unit and/or counseling patient: - Narrative A/P Narrative: A/P Small bowel obstruction: some improvement as there is stool output in the stoma , Surgery following. Fever: No wbc, x ray done, ua pending, procalcitonin is reported neg, monitor for now. Hypocalcemia: lyle low today, replace IV, on calcitriol via NG tube, but given that she has suction, not sure how much she is absorbing, continue with present plan, will need IV calcium till we are able to ensure good oral intake. 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 Morbid Obesity: PCP to follow Tachycardia, secondary to anxiety/ GI issues, much better now. (has been worked up in the past, and her HR improves with improvemet in GI symptoms,: HR stable presently, tsh low but t3 and t4 wnl. hypothyroidism : low tsh, normal t3, t4, resume dose once able to tolerate po. Osteoarthritis: Prn IV tylenol. Hep sq for dvt prophylaxis NPO for now Full code. Medical - PN: Qual - VTE Deep Vein Thrombosis/Pulmonary Embolism Present on Admission: No
[2017-10-06] MEDS ORDERED: POTASSIUM CHLORIDE 40 MEQ in DEXTROSE 5% IN WATER 500 ML IV ONE (11:05)
[2017-10-06 12:29] LABS: Appearance,Urine CLEAR; Bacteria,Urine 0 /hpf (0); Bilirubin,Urine NEG (NEG); Color,Urine YELLOW; Glucose,Urine (UA) NEGATIVE (NEG); Leukocyte Esterase,Urine NEG /uL (NEG); Mucus,Urine MANY /hpf (0); Nitrate,Urine NEG (NEG); Protein,Urine NEG (NEG); Specific Gravity,Urine 1.023 (1.000-1.035); Urine Blood NEG mg/dL (<0.03); Urine RBC 0 /hpf (0-1); Urine Squamous Epithelial Cell 2 /hpf (0-4); Urine Transitional Epi Cells < 1 /hpf (0-2); Urine WBC 1 /hpf (0-4); Urobilinogen,Urine NEG (NEG)
--- NOTE | 2017-10-06 13:41 | XRay Report ---
CLINICAL INFORMATION: Cough COMPARISON: 10/05/2017 FINDINGS: PICC line is in satisfactory position with the tip overlying the SVC right atrial junction. Cardiomediastinal silhouette and pulmonary vessels are normal. The lungs are clear. Right diaphragm mildly elevated. NG tube is in stable position within the stomach. IMPRESSION: Negative Interpreted and Authenticated by: All Lundberg 10/06/17
--- NOTE | 2017-10-06 13:42 | XRay Report ---
CLINICAL INFORMATION: Small bowel obstruction COMPARISON: 10/05/2017 FINDINGS: NG tube is in stable position with the tip in the gastric antrum sidehole in the gastric body. Today's exam shows considerable decrease in the stomach and proximal small bowel caliber with much less air. scattered air-fluid level in the small bowel persists in the upright film. There is more stool and gas seen in the distal small bowel and colon. IMPRESSION: Resolving partial small bowel obstruction Interpreted and Authenticated by: All Lundberg 10/06/17
[2017-10-06] MEDS ORDERED: LORazepam 2 MG/ML VIAL ONE (19:55)
[2017-10-06] MEDS: LORazepam 2 MG/ML VIAL IV PRN (19:59)
[2017-10-07] MEDS: DEXTROSE 5%-1/2NS W/40MEQ KCL 1,000 ML IV SCH ×3 (00:55→22:49)
[2017-10-07] MEDS: PHENOL/SODIUM PHENOLATE 5 SPRAY BOTTLE 180ML SSP PRN ×9 (05:12→21:48)
[2017-10-07] MEDS: 0.9 % SODIUM CHLORIDE 10 ML SYRINGE IV SCH ×6 (05:13→21:49)
[2017-10-07 06:03] LABS: Basophils # (Auto) 0 K/mcL (0.0-0.3); Basophils % (Auto) 0.5 % (0.0-2.0); Eosinophils # (Auto) 0 K/mcL (0.0-0.7); Eosinophils % (Auto) 0.8 % (0.0-7.0); Granulocytes % (Auto) 57.7 % (38.0-78.0); Lymphocytes # (Auto) 1.5 K/mcL (1.5-4.8); Lymphocytes % (Auto) 25.2 % (15.5-49.0); Mean Cell Volume 88.8 fL (80.0-100.0); Mean Corpuscular HGB Conc 33.3 g/dL (31.0-36.0); Mean Corpuscular Hemoglobin 29.5 pg (26.0-34.0); Monocytes # (Auto) 0.9 K/mcL (0.1-0.9); Monocytes % (Auto) 15.8 % (1.0-12.0); Platelet Count 244 K/mcL (140-440); RBC 4.05 M/mcL (4.00-5.20); Red Cell Distribution Width 14.8 % (11.5-14.5)
[2017-10-07 06:08] LABS: ALT/SGPT 15 U/l (0-40); Albumin 3.5 gm/dL (3.2-5.2); Albumin/Globulin Ratio 1.2 (1.0-2.3); Alkaline Phosphatase 66 U/L (39-117); Bilirubin,Direct < 0.2 mg/dL (0.0-0.3); Blood Urea Nitrogen 5 mg/dl (6-20); Gamma Glutamyl Transpeptidase 31 U/L (5-36); Magnesium 1.9 mg/dL (1.6-2.5); Uric Acid 4.2 mg/dL (2.5-8.0)
[2017-10-07] MEDS ORDERED: CALCIUM GLUCONATE 4.65 MEQ/10 ML VIAL IV ONE (06:51)
[2017-10-07] MEDS ORDERED: CALCIUM GLUCONATE 9.3 MEQ in DEXTROSE 5% IN WATER 100 ML IV ONE (07:15)
[2017-10-07] MEDS: ACETAMINOPHEN 1,000 MG/100 ML BOTTLE IV PRN ×2 (07:52→17:52)
[2017-10-07] MEDS: CALCITRIOL 0.25 MCG CAPSULE PT SCH ×3 (08:46→21:40)
[2017-10-07] MEDS: FAMOTIDINE/PF 20 MG/2 ML VIAL IV SCH ×2 (08:47→21:39)
[2017-10-07] MEDS: methylPREDNISolone SOD SUCC 40 MG/ML VIAL IV SCH (08:52)
[2017-10-07] MEDS: HEPARIN 5,000 UNIT/ML VIAL SQ SCH ×2 (08:57→21:40)
--- NOTE | 2017-10-07 10:05 | XRay Report ---
HISTORY: Reason for Exam: Persistent small bowel obstruction FINDINGS: The stomach is decompressed by a nasogastric tube. There is a single loop of distended small bowel in the mid epigastrium which measures 6.3 cm in transverse dimension. It measured 8 cm in transverse dimension on yesterday's exam. There is much less stool and gas in the colon today than there was yesterday. There are couple air-fluid levels in the mid and upper abdomen. No free intra-abdominal air is present. IMPRESSION: Improving small bowel obstruction Interpreted and Authenticated by: Zay Juarez 10/07/17
--- NOTE | 2017-10-07 10:38 | General Surgery Progress Note ---
Surgical - Auxillary Note - Subjective Patient Information: Note initiated : 10/07/17 at 10:34 am Service Date, if different from initiated Date: [] Patient: Dayanna Stephens 56 y/o F admitted on 10/03/17 for Abd Pain/ Constipation Post Ostomy/Small Bowel Obst. Chief Complaint: [] Patient resting in bed. Reports she is feeling better. Says her abdomen feels much better. Passing stool and some flatus via ostomy. Vital Signs Temp Pulse Resp BP Pulse Ox 98.5 F 103 H 20 130/86 97 10/07/17 07:29 10/07/17 04:00 10/07/17 07:29 10/07/17 07:29 10/07/17 07:29 Period Temp Pulse Resp BP Sys/Archuleta Pulse Ox Last 24 Hr 97.6 F-99.7 F 103-126 18-20 117-154/74-88 93-97 Intake and Output 10/06/17 10/07/17 10/07/17 21:59 05:59 13:59 Intake Total 1520 / 1520 250 / 250 225 / 225 Output Total 2575 / 2575 3500 / 3500 400 / 400 Balance -1055 / -1055 -3250 / -3250 -175 / -175 Weight 230 lb PE: No distress. Chest: clear CV: regular rhyth ABD: soft and nontender to palpation. Ostomy with liquid stool in appliance. NGT with slightly bilious colored output--appears diluted from ice chips patient has been taking. Wound erythema resolved. Wound dressing redone with silver alginate packing. Wound depth less today. A/P: stable PSBO appears to be resolving clinically and on abdominal xrays. Given difficulty of NGT placement will not remove as of yet. But will trial some enteral nutrition via tube with strict I&Os to see how this is tolerated and what NGT output really is.
--- NOTE | 2017-10-07 11:12 | Internal Med Progress Note ---
Medical - PN: Subj Patient information: Note initiated : 10/07/17 at 11:09 am Service Date, if different from initiated Date: [] Patient: Dayanna Stephens a 56 y/o F admitted on 10/03/17 for Abd Pain/ Constipation Post Ostomy/Small Bowel Obst. Chief Complaint: [] Interval history: Ms. Stephens is a 56 year old Female with h/o volvulus of the sigmoid colon, s/ p recent surgery by Dr Currie and was being closely followed in the outpatient clinic, presents today to the ER because of pain in the abdomen x 3 days, pain is sharp in the mid abdomen, non radiating, no aggravating relieving factors, noted that it was progressively getting worse, with some distention. She also had some episodes of sweating and dizziness, she therefore presented to the ER for further evaluation. IN the ER The abdomen x ray/ CT scan showed small bowel obstruction. Patients labs unremarkable, patient has h/o chr hypocalcemia, myasthenia gravis, severe anxiety and depression, osteoarthritis, hypothyroidism, autoimmune polyglandular syndrome, sarcoidosis. She will be admitted to medical floor, Gen Surgery consulting for SBO. Radiology trying to place NG tube, under fluoroscopy. The patient notes she has chr arthritis for which she takes some pain mes She also had some pain in the hypogastric regin, sharp shooting, which was told to in the past as nerve pain, The patient will be admitted to tele for further monitoring and management. Dec Patient seen examined, doing well, some nausea, and her chr pain issues, not no new concerns reported she has NG tube with good drainage, X ray this AM is better Calcium was low, she is on high dose calcitriol replacement, mg is normal Dec 23 Patient seen examined, no acute overnight issues, some nausea, NG tube draining well has low mg and calcium, being replaced X ray shows not much improvement in SBO, plan for mag citrate by Surgery, will see how she does. Dec 24 patient seen examined, no acute overnight issues, has low grade temp, but no obvious source plan to check CXR and X ray abdomen today, check procalcitonin and ua patient now has some improved output in the stoma, with some gas, calcium level is 6.0, replace IV, mg 1.7, replace. Dec patient seen examined, tired and did not talk much was anxious overnight needing ativan, which helped She is moving bowels, patient X ray shows improving sbo plan to give diet via NG tube for now as per surgery, Replace IV calcium fever resolved, procalcitonin neg, ua neg, cxr neg, no e/o infection, monitor . Pertinent ROS: Denies headache, dizziness Denies chest pain, palpitations Denies cough or shortness of breath Denies abdominal pain, nausea or vomiting. - Constitutional Vitals: Vital Signs Temp Pulse Resp BP Pulse Ox 98.5 F 103 H 20 130/86 97 10/07/17 07:29 10/07/17 04:00 10/07/17 07:29 10/07/17 07:29 10/07/17 07:29 Period Temp Pulse Resp BP Sys/Archuleta Pulse Ox Last 24 Hr 97.6 F-99.7 F 103-126 18-20 117-154/74-88 93-97 Intake and Output 10/06/17 10/07/17 10/07/17 21:59 05:59 13:59 Intake Total 1520 / 1520 250 / 250 225 / 225 Output Total 2575 / 2575 3500 / 3500 400 / 400 Balance -1055 / -1055 -3250 / -3250 -175 / -175 Weight 230 lb Intake & Output: Intake & Output 10/06/17 10/07/17 10/07/17 21:59 05:59 13:59 Intake Total 1520 / 1520 250 / 250 225 / 225 Output Total 2575 / 2575 3500 / 3500 400 / 400 Balance -1055 / -1055 -3250 / -3250 -175 / -175 Weight 230 lb Intake: IV 1100 / 1100 100 / 100 100 / 100 Dextrose 5%-1/2Ns W/40Meq KCl 1 1000 / 1000 ,000 ml @ 100 mls/hr IV .Q10H [facility] Rx#:[id number] Oral 420 / 420 150 / 150 125 / 125 Output: Gastric Drainage 1250 / 1250 1400 / 1400 250 / 250 Right Nare 1250 / 1250 1400 / 1400 250 / 250 Void Amount 1250 / 1250 1300 / 1300 Stool 75 / 75 800 / 800 150 / 150 Exam: Constitutional; Afebrile, cooperative, not in distress. drowsy today sleepy Eyes- No icterus, , No periorbital swelling Ears- Ext ear normal, hearing normal to conversation. Neck- Midline trachea, supple Respiratory system: Air Entry equal on both sides, No crackles or wheezing, no rhonchi. CVS- Rate rhythm regular, S1,S2 heard, no gallop, no rub. Abdomen- Soft nontender abdomen, no organomegaly, no tenderness, no guarding or rigidity, MEDICAL DETAILIST- AOOx3, moving all extremities, no gross focal deficit noted. Medical - PN: Obj Da - Labs CBC & Chem 7: 10/07/17 05:03 10/07/17 05:03 Labs: Abnormal Lab Results 10/07/17 10/07/17 10/06/17 05:03 05:03 11:31 WBC RBC Hgb Hct RDW 14.8 H MPV [place] % (Auto) 15.8 H Lymph # (Auto) BUN 5 L Creatinine 0.5 L Glucose 120 H Calcium 6.6 L Lactate Dehydrogenase 333 H Total Protein Albumin Triglycerides 413 H Urine Mucus Many A 10/06/17 10/06/17 10/06/17 06:28 06:28 04:35 WBC 4.2 L 3.7 L RBC 3.58 L 3.50 L Hgb 10.7 L 10.5 L Hct 31.8 L 31.1 L RDW 14.6 H MPV 7.1 L [place] % (Auto) 13.9 H 15.8 H Lymph # (Auto) 1.0 L 1.2 L BUN 5 L Creatinine 0.5 L Glucose 141 H Calcium 6.0 L* Lactate Dehydrogenase Total Protein 5.6 L Albumin 3.0 L Triglycerides 480 H Urine Mucus 10/05/17 10/05/17 04:43 04:43 WBC 3.9 L RBC 3.46 L Hgb 10.4 L Hct 31.0 L RDW MPV [place] % (Auto) 15.2 H Lymph # (Auto) 1.4 L BUN 5 L Creatinine 0.5 L Glucose 143 H Calcium 6.2 L Lactate Dehydrogenase Total Protein 5.2 L Albumin 2.9 L Triglycerides 497 H Urine Mucus Meds: Medications Albuterol Sulfate (Ventolin) 2.5 mg NEB Q2HP PRN PRN Reason: Shortness Of Breath Calcitriol (Rocaltrol) 0.5 mcg PT TID [facility] Last Admin: 10/07/17 08:46 Dose: 0.5 mcg Famotidine (Pepcid) 20 mg IV Q12 [facility] Last Admin: 10/07/17 08:47 Dose: 20 mg Heparin Sodium (Porcine) (Heparin) 5,000 unit SQ Q12 [facility] Last Admin: 10/07/17 08:57 Dose: 5,000 unit Heparin Sodium (Porcine) (Heparin Flush) 2 ml IV Q12 [facility] Last Admin: 10/07/17 08:55 Dose: 2 ml Hydromorphone HCl (Dilaudid) 0.5 mg IV Q2HP PRN PRN Reason: PAIN LEVEL > 6 Last Admin: 10/05/17 18:46 Dose: 0.5 mg Potassium Chloride/Dextrose/Sod Cl (Dextrose 5%-1/2ns W/40meq Kcl) 1,000 mls @ 100 mls/hr IV .Q10H [facility] Last Admin: 10/07/17 00:55 Dose: Not Given Acetaminophen (Ofirmev) 1,000 mg in 100 mls @ 200 mls/hr IV Q8HP PRN PRN Reason: PAIN/FEVER > 101 Last Infusion: 10/07/17 08:31 Dose: Infused Lorazepam (Ativan) 0.5 mg IV Q6HP PRN PRN Reason: ANXIETY/SEDATION Last Admin: 10/06/17 19:59 Dose: 0.5 mg Methylprednisolone Sodium Succinate (Solu-Medrol) 20 mg IV DAILY [facility] Last Admin: 10/07/17 08:52 Dose: 20 mg Naloxone HCl (Narcan) 0.1 mg IV Q2MIN PRN PRN Reason: Opiate Reversal Phenol (Chloroseptic [place]) 5 spray SSP Q2HP PRN PRN Reason: Sore Throat Last Admin: 10/07/17 09:00 Dose: 5 spray Sodium Chloride (Saline Flush) 10 ml IV Q8 [facility] Last Admin: 10/07/17 05:13 Dose: 10 ml Sodium Chloride (Saline Flush) 10 ml IV Q12 [facility] Last Admin: 10/07/17 08:56 Dose: 10 ml Medical - PN: A/P - Time Spent With Patient Total time spent is greater than 50% in coordination of care (as documented) at patient's floor/unit and/or counseling patient: - Narrative A/P Narrative: A/P Small bowel obstruction: some improvement , surgery following, plan to see if she can tolerate NG tube feeds. Fever: resolved, no /o infection. Hypocalcemia: replace IV, will start Oral calcium solution via NG once feeding reintiated. 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 Morbid Obesity: PCP to follow Tachycardia, secondary to anxiety/ GI issues, much better now. (has been worked up in the past, and her HR improves with improvemet in GI symptoms,: HR stable presently, tsh low but t3 and t4 wnl. hypothyroidism : low tsh, normal t3, t4, resume dose once able to tolerate po. Osteoarthritis: Prn IV tylenol. Hep sq for dvt prophylaxis NPO for now (plan to resume diet soon) Full code. Medical - PN: Qual - VTE Deep Vein Thrombosis/Pulmonary Embolism Present on Admission: No
[2017-10-07] MEDS: LORazepam 2 MG/ML VIAL IV PRN ×2 (15:14→22:49)
[2017-10-08] MEDS: PHENOL/SODIUM PHENOLATE 5 SPRAY BOTTLE 180ML SSP PRN ×3 (02:06→09:50)
[2017-10-08] MEDS: ACETAMINOPHEN 1,000 MG/100 ML BOTTLE IV PRN ×3 (02:08→18:47)
[2017-10-08 04:57] LABS: Basophils # (Auto) 0 K/mcL (0.0-0.3); Basophils % (Auto) 0.3 % (0.0-2.0); Eosinophils # (Auto) 0.1 K/mcL (0.0-0.7); Granulocytes % (Auto) 53.6 % (38.0-78.0); Lymphocytes # (Auto) 2.6 K/mcL (1.5-4.8); Lymphocytes % (Auto) 31.8 % (15.5-49.0); Mean Cell Volume 88.4 fL (80.0-100.0); Mean Corpuscular HGB Conc 33.5 g/dL (31.0-36.0); Mean Corpuscular Hemoglobin 29.6 pg (26.0-34.0); Monocytes # (Auto) 1.1 K/mcL (0.1-0.9); Monocytes % (Auto) 13.3 % (1.0-12.0); Platelet Count 258 K/mcL (140-440); RBC 4.24 M/mcL (4.00-5.20); Red Cell Distribution Width 14.9 % (11.5-14.5)
[2017-10-08 05:15] LABS: ALT/SGPT 15 U/l (0-40); Albumin 3.6 gm/dL (3.2-5.2); Albumin/Globulin Ratio 1.2 (1.0-2.3); Alkaline Phosphatase 68 U/L (39-117); Bilirubin,Direct < 0.2 mg/dL (0.0-0.3); Blood Urea Nitrogen 6 mg/dl (6-20); Gamma Glutamyl Transpeptidase 32 U/L (5-36); Magnesium 1.5 mg/dL (1.6-2.5); Uric Acid 4.3 mg/dL (2.5-8.0)
[2017-10-08] MEDS ORDERED: CALCIUM GLUCONATE 4.65 MEQ/10 ML VIAL IV ONE (08:08)
--- NOTE | 2017-10-08 08:42 | General Surgery Progress Note ---
Surgical - Auxillary Note - Subjective Patient Information: Note initiated : 10/08/17 at 8:35 am Service Date, if different from initiated Date: [] Patient: Dayanna Stephens 56 y/o F admitted on 10/03/17 for Abd Pain/ Constipation Post Ostomy/Small Bowel Obst. Chief Complaint: [] Patient sitting up in bed. Reports she is feeling better. Passing stool and flatus via ostomy. Tolerated NGT clamping yesterday--no nausea or abdominal pain. Patient wants NGT out and to drink. Vital Signs Temp Pulse Resp BP Pulse Ox 98.3 F 105 H 18 122/88 95 10/08/17 07:32 10/08/17 04:00 10/08/17 07:32 10/08/17 07:32 10/08/17 07:32 Period Temp Pulse Resp BP Sys/Archuleta Pulse Ox Last 24 Hr 97.6 F-99.9 F 102-109 12-20 108-132/69-88 94-96 Intake and Output 10/07/17 10/08/17 10/08/17 21:59 05:59 13:59 Intake Total 1490 / 1490 150 / 150 Output Total 975 / 975 1000 / 1000 Balance 515 / 515 -850 / -850 Weight 218 lb PE: No distress Chest: clear CV: regular rhythm ABD: soft, non tender. Ostomy with gas in appliance; mucosa pink. Incision erythema clearing. Some drainage on packing--changed at this visit. CBC and Chem 7 10/08/17 04:00 10/08/17 04:00 A/P: PSBO--clinically resolved. Will d/c NGT and trial liquids. If tolerated will continue liquid diet for at least one week before transitioning to low fiber diet. Discussed with Dr. Tucker.
[2017-10-08] MEDS ORDERED: MAGNESIUM SULFATE 32.48 MEQ in DEXTROSE 5% IN WATER 100 ML IV ONE (09:00)
[2017-10-08] MEDS: DEXTROSE 5%-1/2NS W/40MEQ KCL 1,000 ML IV SCH ×2 (09:47→23:14)
[2017-10-08] MEDS ORDERED: CALCIUM GLUCONATE 9.3 MEQ in DEXTROSE 5% IN WATER 100 ML IV ONE (10:00)
[2017-10-08] MEDS: HEPARIN 5,000 UNIT/ML VIAL SQ SCH ×2 (10:02→21:32)
[2017-10-08] MEDS: methylPREDNISolone SOD SUCC 40 MG/ML VIAL IV SCH (10:07)
[2017-10-08] MEDS: FAMOTIDINE/PF 20 MG/2 ML VIAL IV SCH ×2 (10:09→21:33)
[2017-10-08] MEDS: CALCITRIOL 0.25 MCG CAPSULE PT SCH ×3 (10:09→21:33)
[2017-10-08] MEDS: 0.9 % SODIUM CHLORIDE 10 ML SYRINGE IV SCH ×2 (10:10→21:34)
[2017-10-08] MEDS: LORazepam 2 MG/ML VIAL IV PRN ×2 (10:57→22:17)
--- NOTE | 2017-10-08 13:11 | Internal Med Progress Note ---
Medical - PN: Subj Patient information: Note initiated : 10/08/17 at 1:09 pm Service Date, if different from initiated Date: [] Patient: Dayanna Stephens a 56 y/o F admitted on 10/03/17 for Abd Pain/ Constipation Post Ostomy/Small Bowel Obst. Chief Complaint: [] Interval history: Ms. Stephens is a 56 year old Female with h/o volvulus of the sigmoid colon, s/ p recent surgery by Dr Currie and was being closely followed in the outpatient clinic, presents today to the ER because of pain in the abdomen x 3 days, pain is sharp in the mid abdomen, non radiating, no aggravating relieving factors, noted that it was progressively getting worse, with some distention. She also had some episodes of sweating and dizziness, she therefore presented to the ER for further evaluation. IN the ER The abdomen x ray/ CT scan showed small bowel obstruction. Patients labs unremarkable, patient has h/o chr hypocalcemia, myasthenia gravis, severe anxiety and depression, osteoarthritis, hypothyroidism, autoimmune polyglandular syndrome, sarcoidosis. She will be admitted to medical floor, Gen Surgery consulting for SBO. Radiology trying to place NG tube, under fluoroscopy. The patient notes she has chr arthritis for which she takes some pain mes She also had some pain in the hypogastric regin, sharp shooting, which was told to in the past as nerve pain, The patient will be admitted to tele for further monitoring and management. Dec 22 Patient seen examined, doing well, some nausea, and her chr pain issues, not no new concerns reported she has NG tube with good drainage, X ray this AM is better Calcium was low, she is on high dose calcitriol replacement, mg is normal Dec 23 Patient seen examined, no acute overnight issues, some nausea, NG tube draining well has low mg and calcium, being replaced X ray shows not much improvement in SBO, plan for mag citrate by Surgery, will see how she does. Dec 24 patient seen examined, no acute overnight issues, has low grade temp, but no obvious source plan to check CXR and X ray abdomen today, check procalcitonin and ua patient now has some improved output in the stoma, with some gas, calcium level is 6.0, replace IV, mg 1.7, replace. Dec 25 patient seen examined, tired and did not talk much was anxious overnight needing ativan, which helped She is moving bowels, patient X ray shows improving sbo plan to give diet via NG tube for now as per surgery, Replace IV calcium fever resolved, procalcitonin neg, ua neg, cxr neg, no e/o infection, monitor Oct 08 Patient seen examined, doing well, SBO improving, pt wanting oral trials Plan to d/c NG tube today and start on liquid diet to see how she progresses, patient aware that she may need Placement of NG tube again if she fails this. Resume oral calcium supplements. Patient otherwise denies any other complaints Tico still low, on IV tico as pt still has intermittent spasms. Pertinent ROS: Denies headache, dizziness Denies chest pain, palpitations Denies cough or shortness of breath Denies abdominal pain, nausea or vomiting. - Constitutional Vitals: Vital Signs Temp Pulse Resp BP Pulse Ox 98.3 F 105 H 18 122/88 95 10/08/17 07:32 10/08/17 04:00 10/08/17 07:32 10/08/17 07:32 10/08/17 07:32 Period Temp Pulse Resp BP Sys/Archuleta Pulse Ox Last 24 Hr 98.3 F-99.9 F 102-109 12-20 109-132/73-88 95-96 Intake and Output 10/07/17 10/08/17 10/08/17 21:59 05:59 13:59 Intake Total 1490 / 1490 150 / 150 1100 / 1100 Output Total 975 / 975 1000 / 1000 Balance 515 / 515 -850 / -850 1100 / 1100 Weight 218 lb Intake & Output: Intake & Output 10/07/17 10/08/17 10/08/17 21:59 05:59 13:59 Intake Total 1490 / 1490 150 / 150 1100 / 1100 Output Total 975 / 975 1000 / 1000 Balance 515 / 515 -850 / -850 1100 / 1100 Weight 218 lb Intake: IV 1100 / 1100 100 / 100 1100 / 1100 Dextrose 5%-1/2Ns W/40Meq KCl 1 1000 / 1000 1000 / 1000 ,000 ml @ 100 mls/hr IV .Q10H [facility] Rx#:[id number] Oral 120 / 120 50 / 50 Tube Feeding 240 / 240 GI Tube Flush 30 / 30 Output: Gastric Drainage 500 / 500 500 / 500 Right Nare 500 / 500 500 / 500 Void Amount 475 / 475 500 / 500 Other: # Voids 1 Exam: Constitutional; Afebrile, cooperative, alert, not in distress. Eyes- No icterus, , No periorbital swelling Ears- Ext ear normal, hearing normal to conversation. Neck- Midline trachea, supple Respiratory system: Air Entry equal on both sides, No crackles or wheezing, no rhonchi. CVS- Rate rhythm regular, S1,S2 heard, no gallop, no rub. 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 Medical - PN: Obj Da - Labs CBC & Chem 7: 10/08/17 04:00 10/08/17 04:00 Labs: Abnormal Lab Results 10/08/17 10/08/17 10/07/17 04:00 04:00 05:03 WBC RBC Hgb Hct RDW 14.9 H MPV [place] % (Auto) 13.3 H Lymph # (Auto) [place] # (Auto) 1.1 H BUN 5 L Creatinine 0.5 L Glucose 126 H 120 H Calcium 6.8 L 6.6 L Phosphorus 5.0 H Magnesium 1.5 L Lactate Dehydrogenase 266 H 333 H Total Protein Albumin Triglycerides 390 H 413 H Urine Mucus 10/07/17 10/06/17 10/06/17 05:03 11:31 06:28 WBC RBC Hgb Hct RDW 14.8 H MPV [place] % (Auto) 15.8 H Lymph # (Auto) [place] # (Auto) BUN 5 L Creatinine 0.5 L Glucose 141 H Calcium 6.0 L* Phosphorus Magnesium Lactate Dehydrogenase Total Protein 5.6 L Albumin 3.0 L Triglycerides 480 H Urine Mucus Many A 10/06/17 10/06/17 06:28 04:35 WBC 4.2 L 3.7 L RBC 3.58 L 3.50 L Hgb 10.7 L 10.5 L Hct 31.8 L 31.1 L RDW 14.6 H MPV 7.1 L [place] % (Auto) 13.9 H 15.8 H Lymph # (Auto) 1.0 L 1.2 L [place] # (Auto) BUN Creatinine Glucose Calcium Phosphorus Magnesium Lactate Dehydrogenase Total Protein Albumin Triglycerides Urine Mucus Meds: Medications Albuterol Sulfate (Ventolin) 2.5 mg NEB Q2HP PRN PRN Reason: Shortness Of Breath Calcitriol (Rocaltrol) 0.5 mcg PT TID [facility] Last Admin: 10/08/17 10:09 Dose: 0.5 mcg Famotidine (Pepcid) 20 mg IV Q12 [facility] Last Admin: 10/08/17 10:09 Dose: 20 mg Heparin Sodium (Porcine) (Heparin) 5,000 unit SQ Q12 [facility] Last Admin: 10/08/17 10:02 Dose: 5,000 unit Heparin Sodium (Porcine) (Heparin Flush) 2 ml IV Q12 [facility] Last Admin: 10/08/17 11:08 Dose: Not Given Hydromorphone HCl (Dilaudid) 0.5 mg IV Q2HP PRN PRN Reason: PAIN LEVEL > 6 Last Admin: 10/05/17 18:46 Dose: 0.5 mg Potassium Chloride/Dextrose/Sod Cl (Dextrose 5%-1/2ns W/40meq Kcl) 1,000 mls @ 100 mls/hr IV .Q10H [facility] Last Admin: 10/08/17 09:47 Dose: 100 mls/hr Acetaminophen (Ofirmev) 1,000 mg in 100 mls @ 200 mls/hr IV Q8HP PRN PRN Reason: PAIN/FEVER > 101 Last Infusion: 10/08/17 10:30 Dose: Infused Lorazepam (Ativan) 0.5 mg IV Q6HP PRN PRN Reason: ANXIETY/SEDATION Last Admin: 10/08/17 10:57 Dose: 0.5 mg Methylprednisolone Sodium Succinate (Solu-Medrol) 20 mg IV DAILY [facility] Last Admin: 10/08/17 10:07 Dose: 20 mg Naloxone HCl (Narcan) 0.1 mg IV Q2MIN PRN PRN Reason: Opiate Reversal Phenol (Chloroseptic [place]) 5 spray SSP Q2HP PRN PRN Reason: Sore Throat Last Admin: 10/08/17 09:50 Dose: 5 spray Sodium Chloride (Saline Flush) 10 ml IV Q12 [facility] Last Admin: 10/08/17 10:10 Dose: 10 ml Medical - PN: A/P - Time Spent With Patient Total time spent is greater than 50% in coordination of care (as documented) at patient's floor/unit and/or counseling patient: - Narrative A/P Narrative: A/P Small bowel obstruction: some improvement , surgery following, plan to d/c NG tube, and start enteral feeds. Fever: resolved, no /o infection. Hypocalcemia: replace IV, will start Oral calcium solution. Hypomagemesemia: replace IV try to keep mg > 2.0 Myasthenia gravis/ Sarcoidosis: On steroids prendisone 20mg qd which is quite a high dose, on IV solumedrol for now, high risk of osteoporosis, pt also needs PCP prophylaxis at this dose if going to be care home, will discuss if PCP has reviewed this with her . Morbid Obesity: PCP to follow Tachycardia, secondary to anxiety/ GI issues, much better now. (has been worked up in the past, and her HR improves with improvemet in GI symptoms,: HR stable presently, tsh low but t3 and t4 wnl. hypothyroidism : low tsh, normal t3, t4, resume dose once able to tolerate po. Osteoarthritis: Prn IV tylenol. Hep sq for dvt prophylaxis NPO for now (plan to resume diet soon) Full code. Medical - PN: Qual - VTE Deep Vein Thrombosis/Pulmonary Embolism Present on Admission: No
[2017-10-08] MEDS: CALCIUM CARBONATE 1,250 MG/5 ML ORAL.SUSP PO SCH ×2 (14:49→21:33)
[2017-10-09] MEDS: ACETAMINOPHEN 1,000 MG/100 ML BOTTLE IV PRN ×2 (03:14→18:32)
[2017-10-09] MEDS: LORazepam 2 MG/ML VIAL IV PRN ×3 (04:32→23:42)
[2017-10-09 05:23] LABS: Basophils # (Auto) 0 K/mcL (0.0-0.3); Basophils % (Auto) 0.3 % (0.0-2.0); Eosinophils # (Auto) 0.1 K/mcL (0.0-0.7); Eosinophils % (Auto) 1.2 % (0.0-7.0); Granulocytes % (Auto) 51.6 % (38.0-78.0); Lymphocytes # (Auto) 2.8 K/mcL (1.5-4.8); Lymphocytes % (Auto) 36.9 % (15.5-49.0); Mean Cell Volume 88.8 fL (80.0-100.0); Mean Corpuscular HGB Conc 33.5 g/dL (31.0-36.0); Mean Corpuscular Hemoglobin 29.8 pg (26.0-34.0); Monocytes # (Auto) 0.7 K/mcL (0.1-0.9); Platelet Count 259 K/mcL (140-440); RBC 4.08 M/mcL (4.00-5.20); Red Cell Distribution Width 14.4 % (11.5-14.5)
[2017-10-09 05:54] LABS: ALT/SGPT 18 U/l (0-40); Albumin 3.4 gm/dL (3.2-5.2); Albumin/Globulin Ratio 1.2 (1.0-2.3); Alkaline Phosphatase 68 U/L (39-117); Bilirubin,Direct < 0.2 mg/dL (0.0-0.3); Blood Urea Nitrogen 5 mg/dl (6-20); Gamma Glutamyl Transpeptidase 31 U/L (5-36); Magnesium 1.5 mg/dL (1.6-2.5); Uric Acid 3.8 mg/dL (2.5-8.0)
--- NOTE | 2017-10-09 07:07 | General Surgery Progress Note ---
Surgical - Auxillary Note - Subjective Patient Information: Note initiated : 10/09/17 at 7:07 am Service Date, if different from initiated Date: [] Patient: Dayanna Stephens 56 y/o F admitted on 10/03/17 for Abd Pain/ Constipation Post Ostomy/Small Bowel Obst. Chief Complaint: Patient resting in bed. Says she feels good. Did well with removal of NGT. Reports no nausea or emesis with clears. Says her abdomen feels good and is still passing flatus and some liquid stool via ostomy. Vital Signs Temp Pulse Resp BP Pulse Ox 97.8 F 109 H 20 118/79 97 10/09/17 03:29 10/09/17 03:29 10/09/17 03:29 10/09/17 03:29 10/09/17 03:29 Period Temp Pulse Resp BP Sys/Archuleta Pulse Ox Last 24 Hr 97.8 F-98.9 F 102-115 18-20 103-139/67-88 95-99 Intake and Output 10/08/17 10/09/17 10/09/17 21:59 05:59 13:59 Intake Total 2680 / 2680 1250 / 1250 Output Total 2700 / 2700 1900 / 1900 Balance -20 / -20 -650 / -650 Weight 219 lb 8 oz PE: Chest: clear bilaterally CV: regular rhythm ABD: obese, soft, non tender. Wound stable with silver alginate dressings. Ostomy pink with air in appliance. CBC and Chem 7 10/09/17 04:00 10/09/17 04:00 A/P: PSBO: clinically resolved. Has tolerated clears. Will advance to full liquids and if tolerated keep as such for the next few days before advancing to low residue low fiber. Discussed with associate java developer who will counsellors patient on how best to achieve caloric requirements on full liquids. If tolerated well then can go home tomorrow. discussed with hospitalist, Dr. Tucker.
[2017-10-09] MEDS ORDERED: MAGNESIUM SULFATE 32.48 MEQ in DEXTROSE 5% IN WATER 100 ML IV ONE (07:23)
[2017-10-09] MEDS ORDERED: CALCIUM GLUCONATE 4.65 MEQ/10 ML VIAL IV ONE (07:23)
[2017-10-09] MEDS: methylPREDNISolone SOD SUCC 40 MG/ML VIAL IV SCH (08:37)
[2017-10-09] MEDS: FAMOTIDINE/PF 20 MG/2 ML VIAL IV SCH ×2 (08:38→22:37)
[2017-10-09] MEDS: HEPARIN 5,000 UNIT/ML VIAL SQ SCH ×2 (08:38→22:37)
[2017-10-09] MEDS: CALCITRIOL 0.25 MCG CAPSULE PT SCH ×3 (08:39→23:59)
[2017-10-09] MEDS: CALCIUM CARBONATE 1,250 MG/5 ML ORAL.SUSP PO SCH ×3 (08:40→23:59)
[2017-10-09] MEDS: 0.9 % SODIUM CHLORIDE 10 ML SYRINGE IV SCH ×2 (08:42→22:38)
--- NOTE | 2017-10-09 09:47 | Internal Med Progress Note ---
Medical - PN: Subj Patient information: Note initiated : 10/09/17 at 9:45 am Service Date, if different from initiated Date: [] Patient: Dayanna Stephens a 56 y/o F admitted on 10/03/17 for Abd Pain/ Constipation Post Ostomy/Small Bowel Obst. Chief Complaint: [] Interval history: Ms. Stephens is a 56 year old Female with h/o volvulus of the sigmoid colon, s/ p recent surgery by Dr Currie and was being closely followed in the outpatient clinic, presents today to the ER because of pain in the abdomen x 3 days, pain is sharp in the mid abdomen, non radiating, no aggravating relieving factors, noted that it was progressively getting worse, with some distention. She also had some episodes of sweating and dizziness, she therefore presented to the ER for further evaluation. IN the ER The abdomen x ray/ CT scan showed small bowel obstruction. Patients labs unremarkable, patient has h/o chr hypocalcemia, myasthenia gravis, severe anxiety and depression, osteoarthritis, hypothyroidism, autoimmune polyglandular syndrome, sarcoidosis. She will be admitted to medical floor, Gen Surgery consulting for SBO. Radiology trying to place NG tube, under fluoroscopy. The patient notes she has chr arthritis for which she takes some pain mes She also had some pain in the hypogastric regin, sharp shooting, which was told to in the past as nerve pain, The patient will be admitted to tele for further monitoring and management. Dec 22 Patient seen examined, doing well, some nausea, and her chr pain issues, not no new concerns reported she has NG tube with good drainage, X ray this AM is better Calcium was low, she is on high dose calcitriol replacement, mg is normal Dec 23 Patient seen examined, no acute overnight issues, some nausea, NG tube draining well has low mg and calcium, being replaced X ray shows not much improvement in SBO, plan for mag citrate by Surgery, will see how she does. Dec 24 patient seen examined, no acute overnight issues, has low grade temp, but no obvious source plan to check CXR and X ray abdomen today, check procalcitonin and ua patient now has some improved output in the stoma, with some gas, calcium level is 6.0, replace IV, mg 1.7, replace. Dec 25 patient seen examined, tired and did not talk much was anxious overnight needing ativan, which helped She is moving bowels, patient X ray shows improving sbo plan to give diet via NG tube for now as per surgery, Replace IV calcium fever resolved, procalcitonin neg, ua neg, cxr neg, no e/o infection, monitor Oct 08 Patient seen examined, doing well, SBO improving, pt wanting oral trials Plan to d/c NG tube today and start on liquid diet to see how she progresses, patient aware that she may need Placement of NG tube again if she fails this. Resume oral calcium supplements. Patient otherwise denies any other complaints Tico still low, on IV tico as pt still has intermittent spasms. oct 09 patient seen examined, no acute overnight issues pt tolerating po diet well, on clear liquids, likeliy to be advanced to full liquid now. tico low, replace IV and increase oral replacement to 1000mg tid, repalce mg oral and IV plan for d/c home wihen cleared by surgery Pertinent ROS: Denies headache, dizziness Denies chest pain, palpitations Denies cough or shortness of breath Denies abdominal pain, nausea or vomiting. - Constitutional Vitals: Vital Signs Temp Pulse Resp BP Pulse Ox 97.3 F 109 H 18 107/76 96 10/09/17 07:54 10/09/17 03:29 10/09/17 07:54 10/09/17 07:54 10/09/17 07:54 Period Temp Pulse Resp BP Sys/Archuleta Pulse Ox Last 24 Hr 97.3 F-98.9 F 102-115 18-20 103-139/67-84 95-99 Intake and Output 10/08/17 10/09/17 10/09/17 21:59 05:59 13:59 Intake Total 2680 / 2680 1250 / 1250 540 / 540 Output Total 2700 / 2700 1900 / 1900 Balance -20 / -20 -650 / -650 540 / 540 Weight 219 lb 8 oz Intake & Output: Intake & Output 10/08/17 10/09/17 10/09/17 21:59 05:59 13:59 Intake Total 2680 / 2680 1250 / 1250 540 / 540 Output Total 2700 / 2700 1900 / 1900 Balance -20 / -20 -650 / -650 540 / 540 Weight 219 lb 8 oz Intake: IV 1100 / 1100 100 / 100 Dextrose 5%-1/2Ns W/40Meq KCl 1 1000 / 1000 ,000 ml @ 100 mls/hr IV .Q10H [facility] Rx#:[id number] Oral 1580 / 1580 1150 / 1150 540 / 540 Output: Void Amount 2700 / 2700 1900 / 1900 Other: Meal popcicle Percent of Meal Consumed 100% Feeding Ability Independent Independent # Voids 2 1 Exam: Constitutional; Afebrile, cooperative, alert, not in distress. Eyes- No icterus, , No periorbital swelling Ears- Ext ear normal, hearing normal to conversation. Neck- Midline trachea, supple Respiratory system: Air Entry equal on both sides, No crackles or wheezing, no rhonchi. CVS- Rate rhythm regular, S1,S2 heard, no gallop, no rub. 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 Medical - PN: Obj Da - Labs CBC & Chem 7: 10/09/17 04:00 10/09/17 04:00 Labs: Abnormal Lab Results 10/09/17 10/08/17 10/08/17 04:00 04:00 04:00 RDW 14.9 H [place] % (Auto) 13.3 H [place] # (Auto) 1.1 H BUN 5 L Creatinine 0.5 L Glucose 115 H 126 H Calcium 6.9 L 6.8 L Phosphorus 5.0 H Magnesium 1.5 L 1.5 L Lactate Dehydrogenase 256 H 266 H Triglycerides 426 H 390 H Urine Mucus 10/07/17 10/07/17 10/06/17 05:03 05:03 11:31 RDW 14.8 H [place] % (Auto) 15.8 H [place] # (Auto) BUN 5 L Creatinine 0.5 L Glucose 120 H Calcium 6.6 L Phosphorus Magnesium Lactate Dehydrogenase 333 H Triglycerides 413 H Urine Mucus Many A Meds: Medications Albuterol Sulfate (Ventolin) 2.5 mg NEB Q2HP PRN PRN Reason: Shortness Of Breath Calcitriol (Rocaltrol) 0.5 mcg PT TID [facility] Last Admin: 10/09/17 08:39 Dose: 0.5 mcg Calcium Carbonate/Glycine (Calcium Carbonate) 1,000 mg PO TID [facility] Last Admin: 10/09/17 08:40 Dose: 1,000 mg Famotidine (Pepcid) 20 mg IV Q12 [facility] Last Admin: 10/09/17 08:38 Dose: 20 mg Heparin Sodium (Porcine) (Heparin) 5,000 unit SQ Q12 [facility] Last Admin: 10/09/17 08:38 Dose: 5,000 unit Heparin Sodium (Porcine) (Heparin Flush) 2 ml IV Q12 [facility] Last Admin: 10/08/17 21:34 Dose: 2 ml Hydromorphone HCl (Dilaudid) 0.5 mg IV Q2HP PRN PRN Reason: PAIN LEVEL > 6 Last Admin: 10/05/17 18:46 Dose: 0.5 mg Potassium Chloride/Dextrose/Sod Cl (Dextrose 5%-1/2ns W/40meq Kcl) 1,000 mls @ 100 mls/hr IV .Q10H [facility] Last Admin: 10/08/17 23:14 Dose: 100 mls/hr Acetaminophen (Ofirmev) 1,000 mg in 100 mls @ 200 mls/hr IV Q8HP PRN PRN Reason: PAIN/FEVER > 101 Last Infusion: 10/09/17 04:14 Dose: Infused Lorazepam (Ativan) 0.5 mg IV Q6HP PRN PRN Reason: ANXIETY/SEDATION Last Admin: 10/09/17 04:32 Dose: 0.5 mg Methylprednisolone Sodium Succinate (Solu-Medrol) 20 mg IV DAILY [facility] Last Admin: 10/09/17 08:37 Dose: 20 mg Naloxone HCl (Narcan) 0.1 mg IV Q2MIN PRN PRN Reason: Opiate Reversal Phenol (Chloroseptic [place]) 5 spray SSP Q2HP PRN PRN Reason: Sore Throat Last Admin: 10/08/17 09:50 Dose: 5 spray Sodium Chloride (Saline Flush) 10 ml IV Q12 [facility] Last Admin: 10/09/17 08:42 Dose: 10 ml Medical - PN: A/P - Time Spent With Patient Total time spent is greater than 50% in coordination of care (as documented) at patient's floor/unit and/or counseling patient: - Narrative A/P Narrative: A/P Small bowel obstruction: some improvement , surgery following, plan to d/c NG tube, and start enteral feeds. Fever: resolved, no /o infection. Hypocalcemia: replace IV, and oral, on calcitriol, now that she is tolerating po , i excpect this to improve well. Hypomagemesemia: replace IV try to keep mg > 2.0, mg is 1.5, start on mag oxide 400mg tid, Myasthenia gravis/ Sarcoidosis: On steroids prendisone 20mg qd which is quite a high dose, on IV solumedrol for now, high risk of osteoporosis, pt also needs PCP prophylaxis at this dose if going to be long-term, will discuss if PCP has reviewed this with her . Morbid Obesity: PCP to follow Tachycardia, secondary to anxiety/ GI issues, much better now. (has been worked up in the past, and her HR improves with improvemet in GI symptoms,: HR stable presently, tsh low but t3 and t4 wnl. hypothyroidism : low tsh, normal t3, t4, resume dose once able to tolerate po. Osteoarthritis: Prn IV tylenol. Hep sq for dvt prophylaxis clear liquid diet, Full code. Medical - PN: Qual - VTE Deep Vein Thrombosis/Pulmonary Embolism Present on Admission: No
[2017-10-09] MEDS: MULTIVITAMINS,THERAPEUTIC 1 ML ORAL.SOL PO SCH (14:18)
[2017-10-09] MEDS: MAGNESIUM OXIDE 400 MG TABLET PO SCH ×2 (14:19→23:59)
[2017-10-09] MEDS: DEXTROSE 5%-1/2NS W/40MEQ KCL 1,000 ML IV SCH (19:11)
[2017-10-09] MEDS ORDERED: ONDANSETRON 4 MG/2 ML VIAL ONE (21:27)
[2017-10-09] MEDS: HYDROmorphone 2 MG/ML SYRINGE IV PRN (22:12)
--- NOTE | 2017-10-09 23:02 | General Surgery Progress Note ---
Surgical - Auxillary Note - Subjective Patient Information: Note initiated : 10/09/17 at 10:57 pm Service Date, if different from initiated Date: [] Patient: Dayanna Stephens 56 y/o F admitted on 10/03/17 for Abd Pain/ Constipation Post Ostomy/Small Bowel Obst. Chief Complaint: [] Called by nursing staff that patient had an episode of emesis followed by dry heaves. Emesis reported to be about 50ml. Patient describes it as clear and frothy. c/o nausea and some abdominal pain after emesis. Exam: Abdomen with mild tenderness in mid upper abdomen and lower right. ABD x rays obtained showing air fluid levels. A/P recurrent SBO attempted NGT placement but unsuccessful and efforts stopped after 5 attempts. Will keep NPO and re check xrays again in am. If unchanged or worse will need NGT placement possibly under flouroscopy. Recent changes discussed with hospitalist, Dr. Tucker.
[2017-10-09] MEDS: ERYTHROMYCIN LACTOBIONATE 250 MG in 0.9 % SODIUM CHLORIDE 100 ML IV SCH (23:28)
[2017-10-10] MEDS: HYDROmorphone 2 MG/ML SYRINGE IV PRN ×4 (02:00→16:10)
[2017-10-10] MEDS: ONDANSETRON 4 MG/2 ML VIAL IV PRN (05:37)
[2017-10-10] MEDS: ERYTHROMYCIN LACTOBIONATE 250 MG in 0.9 % SODIUM CHLORIDE 100 ML IV SCH ×6 (05:57→23:45)
[2017-10-10 05:59] LABS: Basophils # (Auto) 0 K/mcL (0.0-0.3); Basophils % (Auto) 0.3 % (0.0-2.0); Eosinophils # (Auto) 0.2 K/mcL (0.0-0.7); Eosinophils % (Auto) 1.6 % (0.0-7.0); Granulocytes % (Auto) 64.2 % (38.0-78.0); Lymphocytes # (Auto) 2.5 K/mcL (1.5-4.8); Lymphocytes % (Auto) 25.9 % (15.5-49.0); Mean Cell Volume 88.5 fL (80.0-100.0); Mean Corpuscular HGB Conc 32.9 g/dL (31.0-36.0); Mean Corpuscular Hemoglobin 29.1 pg (26.0-34.0); Monocytes # (Auto) 0.8 K/mcL (0.1-0.9); Platelet Count 243 K/mcL (140-440); Red Cell Distribution Width 14.2 % (11.5-14.5)
[2017-10-10 06:07] LABS: ALT/SGPT 26 U/l (0-40); Albumin 3.3 gm/dL (3.2-5.2); Albumin/Globulin Ratio 1.1 (1.0-2.3); Alkaline Phosphatase 70 U/L (39-117); Bilirubin,Direct < 0.2 mg/dL (0.0-0.3); Blood Urea Nitrogen 8 mg/dl (6-20); Gamma Glutamyl Transpeptidase 30 U/L (5-36); Magnesium 1.5 mg/dL (1.6-2.5); Uric Acid 3.9 mg/dL (2.5-8.0)
[2017-10-10] MEDS ORDERED: MAGNESIUM SULFATE 32.48 MEQ in DEXTROSE 5% IN WATER 100 ML IV ONE (08:11)
--- NOTE | 2017-10-10 08:41 | XRay Report ---
HISTORY: Reason for Exam:flat and upright views if possible FINDINGS: There is a moderate amount of gas in the stomach and small bowel. Multiple air-fluid levels are present in the small intestine. The largest segment of dilated small intestine measures 4.3 cm. It measures 6.3 cm on 10/07/17. There is more air in the small intestine today than there was on the prior exam. There is some air in the proximal large intestine with a few air-fluid levels. The colon is nondistended. A small amount of radiopaque contrast is present within a decompressed proximal descending colon. There is an ostomy in the left upper pelvis. No free intra-abdominal air is present. IMPRESSION: Ileus pattern Interpreted and Authenticated by: Zay Juarez 10/10/17
--- NOTE | 2017-10-10 08:49 | General Surgery Progress Note ---
Surgical - Auxillary Note - Subjective Patient Information: Note initiated : 10/10/17 at 8:41 am Service Date, if different from initiated Date: [] Patient: Dayanna Stephens 56 y/o F admitted on 10/03/17 for Abd Pain/ Constipation Post Ostomy/Small Bowel Obst. Chief Complaint: [] Patient sitting up in bed. feels a little better than last night. Reports two small episodes of flatus. Still some nausea but no further emesis. Wants to try to avoid NGT. Vital Signs Temp Pulse Resp BP Pulse Ox 97.1 F 107 H 14 126/84 94 10/10/17 07:39 10/10/17 07:49 10/10/17 07:39 10/10/17 07:39 10/10/17 07:49 Period Temp Pulse Resp BP Sys/Archuleta Pulse Ox Last 24 Hr 97.1 F-98.8 F 107-115 14-18 120-127/73-87 92-97 Intake and Output 10/09/17 10/10/17 10/10/17 21:59 05:59 13:59 Intake Total 800 / 800 100 / 100 Output Total 2550 / 2550 550 / 550 Balance -1750 / -1750 -450 / -450 Weight 221 lb 9.6 oz PE: Not acutely distressed. Some anxiety. Chest: clear CV: regular rhythm, tachy ABD: soft, mildly tender in upper and right side. Not distended no guarding. CBC and Chem 7 10/10/17 04:00 10/10/17 04:00 A/P: PSBO recurrent, vs dysmotility Passed some flatus last night after episode of emesis. This morning's xrays look better than last night with stool and gas seen in both large and small bowel Patient would like to see if she can avoid NGT replacement as this is very traumatic for her. Will trial strict NPO and increased ambulation.
[2017-10-10] MEDS: MAGNESIUM OXIDE 400 MG TABLET PO SCH ×3 (08:51→20:21)
[2017-10-10] MEDS: CALCIUM CARBONATE 1,250 MG/5 ML ORAL.SUSP PO SCH ×3 (08:51→20:21)
[2017-10-10] MEDS: CALCITRIOL 0.25 MCG CAPSULE PT SCH ×3 (08:52→20:21)
[2017-10-10] MEDS: MULTIVITAMINS,THERAPEUTIC 1 ML ORAL.SOL PO SCH (08:52)
--- NOTE | 2017-10-10 08:54 | XRay Report ---
HISTORY: Reason for Exam: Abdominal distention, bowel obstruction, pain and constipation FINDINGS: There are several loops of dilated small intestine. The largest segment is contiguous with the greater curvature of the stomach and measures 8 cm in diameter. There are air-fluid levels in the stomach and small intestine. Moderate amount of stool is seen in the colon. The colon is nondistended and does not contain any air-fluid levels on today's exam. Comparison with the prior exam done yesterday shows increased distention of the proximal small intestine and resolution of the air-fluid levels in the colon. IMPRESSION: Incomplete small bowel obstruction Interpreted and Authenticated by: Zay Juarez 10/10/17
[2017-10-10] MEDS: ACETAMINOPHEN 1,000 MG/100 ML BOTTLE IV PRN ×2 (09:18→17:43)
[2017-10-10] MEDS: methylPREDNISolone SOD SUCC 40 MG/ML VIAL IV SCH (09:19)
[2017-10-10] MEDS: HEPARIN 5,000 UNIT/ML VIAL SQ SCH ×2 (09:41→20:21)
[2017-10-10] MEDS: FAMOTIDINE/PF 20 MG/2 ML VIAL IV SCH ×2 (09:41→20:21)
[2017-10-10] MEDS: 0.9 % SODIUM CHLORIDE 10 ML SYRINGE IV SCH ×2 (09:43→20:21)
[2017-10-10] MEDS ORDERED: MAGNESIUM HYDROXIDE 30 ML ORAL.SUSP PO ONE ×2 (12:47→16:33)
[2017-10-10] MEDS ORDERED: CALCIUM GLUCONATE 4.65 MEQ/10 ML VIAL IV ONE (12:52)
[2017-10-10] MEDS ORDERED: CALCIUM GLUCONATE 9.3 MEQ in DEXTROSE 5% IN WATER 100 ML IV ONE (13:00)
--- NOTE | 2017-10-10 13:19 | Internal Med Progress Note ---
Medical - PN: Subj Patient information: Note initiated : 10/10/17 at 1:17 pm Service Date, if different from initiated Date: [] Patient: Dayanna Stephens a 56 y/o F admitted on 10/03/17 for Abd Pain/ Constipation Post Ostomy/Small Bowel Obst. Chief Complaint: [] Interval history: Ms. Stephens is a 56 year old Female with h/o volvulus of the sigmoid colon, s/ p recent surgery by Dr Currie and was being closely followed in the outpatient clinic, presents today to the ER because of pain in the abdomen x 3 days, pain is sharp in the mid abdomen, non radiating, no aggravating relieving factors, noted that it was progressively getting worse, with some distention. She also had some episodes of sweating and dizziness, she therefore presented to the ER for further evaluation. IN the ER The abdomen x ray/ CT scan showed small bowel obstruction. Patients labs unremarkable, patient has h/o chr hypocalcemia, myasthenia gravis, severe anxiety and depression, osteoarthritis, hypothyroidism, autoimmune polyglandular syndrome, sarcoidosis. She will be admitted to medical floor, Gen Surgery consulting for SBO. Radiology trying to place NG tube, under fluoroscopy. The patient notes she has chr arthritis for which she takes some pain mes She also had some pain in the hypogastric regin, sharp shooting, which was told to in the past as nerve pain, The patient will be admitted to tele for further monitoring and management. Dec 22 Patient seen examined, doing well, some nausea, and her chr pain issues, not no new concerns reported she has NG tube with good drainage, X ray this AM is better Calcium was low, she is on high dose calcitriol replacement, mg is normal Dec 23 Patient seen examined, no acute overnight issues, some nausea, NG tube draining well has low mg and calcium, being replaced X ray shows not much improvement in SBO, plan for mag citrate by Surgery, will see how she does. Dec 24 patient seen examined, no acute overnight issues, has low grade temp, but no obvious source plan to check CXR and X ray abdomen today, check procalcitonin and ua patient now has some improved output in the stoma, with some gas, calcium level is 6.0, replace IV, mg 1.7, replace. Dec 25 patient seen examined, tired and did not talk much was anxious overnight needing ativan, which helped She is moving bowels, patient X ray shows improving sbo plan to give diet via NG tube for now as per surgery, Replace IV calcium fever resolved, procalcitonin neg, ua neg, cxr neg, no e/o infection, monitor Oct 08 Patient seen examined, doing well, SBO improving, pt wanting oral trials Plan to d/c NG tube today and start on liquid diet to see how she progresses, patient aware that she may need Placement of NG tube again if she fails this. Resume oral calcium supplements. Patient otherwise denies any other complaints Tico still low, on IV tico as pt still has intermittent spasms. oct 09 patient seen examined, no acute overnight issues pt tolerating po diet well, on clear liquids, likeliy to be advanced to full liquid now. tico low, replace IV and increase oral replacement to 1000mg tid, repalce mg oral and IV plan for d/c home wihen cleared by surgery Oct 10 patient seen examined, pt had episodes of nausea overnight X ray abdomen shwos recurrence of SBO NG tube was attempted but was not possible, Patient allergic to reglan, started on erythromycin for prokientic effect this AM x ray better, patient no longer has nausea NPO status again, continue with erythromycin, start on linzezz 145 mcg dialy , patients reports this helps with he bowels replace mg and calcium IV Pertinent ROS: Denies headache, dizziness Denies chest pain, palpitations Denies cough or shortness of breath Denies abdominal pain, PPresent nausea no vomiting. - Constitutional Vitals: Vital Signs Temp Pulse Resp BP Pulse Ox 97.1 F 107 H 14 126/84 94 10/10/17 07:39 10/10/17 07:49 10/10/17 07:39 10/10/17 07:39 10/10/17 07:49 Period Temp Pulse Resp BP Sys/Archuleta Pulse Ox Last 24 Hr 97.1 F-98.8 F 107-115 14-18 120-127/73-87 92-97 Intake and Output 10/09/17 10/10/17 10/10/17 21:59 05:59 13:59 Intake Total 800 / 800 100 / 100 Output Total 2550 / 2550 550 / 550 Balance -1750 / -1750 -450 / -450 Weight 221 lb 9.6 oz Intake & Output: Intake & Output 10/09/17 10/10/17 10/10/17 21:59 05:59 13:59 Intake Total 800 / 800 100 / 100 Output Total 2550 / 2550 550 / 550 Balance -1750 / -1750 -450 / -450 Weight 221 lb 9.6 oz Intake: IV 100 / 100 100 / 100 Erythrocin Lactobionate 250 mg 100 / 100 In Sodium Chloride 0.9% 100 ml @ 100 mls/hr IV Q6 [facility] Rx#: [id number] Oral 700 / 700 0 / 0 Output: Void Amount 2500 / 2500 425 / 425 Emesis 50 / 50 125 / 125 Exam: Constitutional; Afebrile, cooperative, alert, not in distress. Eyes- No icterus, , No periorbital swelling Ears- Ext ear normal, hearing normal to conversation. Neck- Midline trachea, supple Respiratory system: Air Entry equal on both sides, No crackles or wheezing, no rhonchi. CVS- Rate rhythm regular, S1,S2 heard, no gallop, no rub. Abdomen- Soft nontender abdomen, no organomegaly, no tenderness, no guarding or rigidity, [employer]- AOOx3, moving all extremities, no gross focal deficit noted. Medical - PN: Obj Da - Labs CBC & Chem 7: 10/10/17 04:00 10/10/17 04:00 Labs: Abnormal Lab Results 10/10/17 10/10/17 10/09/17 04:00 04:00 04:00 Hgb 11.9 L RDW [place] % (Auto) [place] # (Auto) Chloride 95 L BUN 5 L Creatinine 0.5 L Glucose 127 H 115 H Calcium 7.0 L 6.9 L Phosphorus Magnesium 1.5 L 1.5 L Lactate Dehydrogenase 252 H 256 H Triglycerides 548 H 426 H 10/08/17 10/08/17 04:00 04:00 Hgb RDW 14.9 H [place] % (Auto) 13.3 H [place] # (Auto) 1.1 H Chloride BUN Creatinine Glucose 126 H Calcium 6.8 L Phosphorus 5.0 H Magnesium 1.5 L Lactate Dehydrogenase 266 H Triglycerides 390 H Meds: Medications Albuterol Sulfate (Ventolin) 2.5 mg NEB Q2HP PRN PRN Reason: Shortness Of Breath Calcitriol (Rocaltrol) 0.5 mcg PT TID [facility] Last Admin: 12/28/17 08:52 Dose: Not Given Calcium Carbonate/Glycine (Calcium Carbonate) 1,000 mg PO TID [facility] Last Admin: 10/10/17 08:51 Dose: Not Given Famotidine (Pepcid) 20 mg IV Q12 [facility] Last Admin: 10/10/17 09:41 Dose: 20 mg Heparin Sodium (Porcine) (Heparin) 5,000 unit SQ Q12 [facility] Last Admin: 10/10/17 09:41 Dose: 5,000 unit Heparin Sodium (Porcine) (Heparin Flush) 2 ml IV Q12 [facility] Last Admin: 10/10/17 09:44 Dose: 2 ml Hydromorphone HCl (Dilaudid) 0.5 mg IV Q2HP PRN PRN Reason: PAIN LEVEL > 6 Last Admin: 10/10/17 09:19 Dose: 0.5 mg Acetaminophen (Ofirmev) 1,000 mg in 100 mls @ 200 mls/hr IV Q8HP PRN PRN Reason: PAIN/FEVER > 101 Last Admin: 10/10/17 09:18 Dose: 100 mls/hr Erythromycin Lactobionate 250 (mg/ Sodium Chloride) 100 mls @ 100 mls/hr IV Q6H [facility] Last Admin: 10/10/17 11:56 Dose: 100 mls/hr Potassium Chloride/Dextrose/Sod Cl (Dextrose 5%-1/2ns W/20meq Kcl) 1,000 mls @ 84 mls/hr IV .[id number] [facility] Calcium Gluconate 9.3 meq/ (Dextrose) 120 mls @ 120 mls/hr IV ONCE ONE Stop: 10/10/17 13:59 Lorazepam (Ativan) 0.5 mg IV Q6HP PRN PRN Reason: ANXIETY/SEDATION Last Admin: 10/09/17 23:42 Dose: 0.5 mg Magnesium Oxide (Magnesium Oxide) 400 mg PO TID [facility] Last Admin: 10/10/17 08:51 Dose: Not Given Methylprednisolone Sodium Succinate (Solu-Medrol) 20 mg IV DAILY [facility] Last Admin: 10/10/17 09:19 Dose: 20 mg Multivitamins (Thera-Plus) 5 ml PO DAILY [facility] Last Admin: 10/10/17 08:52 Dose: Not Given Naloxone HCl (Narcan) 0.1 mg IV Q2MIN PRN PRN Reason: Opiate Reversal Linaclotide (Linzess () 145mg Cap) 1 dose PO DAILY [facility] Ondansetron HCl (Zofran) 4 mg IV Q6HP PRN PRN Reason: Nausea And Vomiting Last Admin: 10/10/17 05:37 Dose: 4 mg Phenol (Chloroseptic [place]) 5 spray SSP Q2HP PRN PRN Reason: Sore Throat Last Admin: 10/08/17 09:50 Dose: 5 spray Sodium Chloride (Saline Flush) 10 ml IV Q12 [facility] Last Admin: 10/10/17 09:43 Dose: 10 ml Medical - PN: A/P - Time Spent With Patient Total time spent is greater than 50% in coordination of care (as documented) at patient's floor/unit and/or counseling patient: - Narrative A/P Narrative: A/P Small bowel obstruction: some improvement , surgery following, recurrence of SBO after removal of NG tube, now NPO again, a nd on IV erythromycin as well as linzess. monitor. Fever: resolved, no /o infection. Hypocalcemia: replace IV, oral once able to, continue calcitriol. Hypomagemesemia: replace IV try to keep mg > 2.0, mg is 1.5, replace 4mg,s start on mg oxide when able. 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 Morbid Obesity: PCP to follow Tachycardia, secondary to anxiety/ GI issues, much better now. (has been worked up in the past, and her HR improves with improvemet in GI symptoms,: HR stable presently, tsh low but t3 and t4 wnl. hypothyroidism : low tsh, normal t3, t4, resume dose once able to tolerate po. Osteoarthritis: Prn IV tylenol. Hep sq for dvt prophylaxis clear liquid diet, Full code. Medical - PN: Qual - VTE Deep Vein Thrombosis/Pulmonary Embolism Present on Admission: No
[2017-10-10] MEDS: DEXTROSE 5%-1/2NS W/20MEQ KCL 1,000 ML IV SCH (14:19)
[2017-10-10] MEDS: LINACLOTIDE 145 MG PO SCH (16:52)
[2017-10-10] MEDS: LORazepam 2 MG/ML VIAL IV PRN (20:39)
[2017-10-11] MEDS: DEXTROSE 5%-1/2NS W/20MEQ KCL 1,000 ML IV SCH ×4 (02:21→20:40)
[2017-10-11] MEDS: HYDROmorphone 2 MG/ML SYRINGE IV PRN ×3 (07:11→16:01)
[2017-10-11] MEDS: ERYTHROMYCIN LACTOBIONATE 250 MG in 0.9 % SODIUM CHLORIDE 100 ML IV SCH ×4 (07:21→23:41)
[2017-10-11] MEDS: MAGNESIUM OXIDE 400 MG TABLET PO SCH ×3 (08:03→21:29)
[2017-10-11] MEDS: CALCIUM CARBONATE 1,250 MG/5 ML ORAL.SUSP PO SCH ×3 (08:03→21:30)
[2017-10-11] MEDS: LINACLOTIDE 145 MG PO SCH (08:03)
[2017-10-11] MEDS: CALCITRIOL 0.25 MCG CAPSULE PT SCH ×3 (08:04→21:29)
[2017-10-11] MEDS: MULTIVITAMINS,THERAPEUTIC 1 ML ORAL.SOL PO SCH (08:04)
[2017-10-11] MEDS: ACETAMINOPHEN 1,000 MG/100 ML BOTTLE IV PRN (08:20)
--- NOTE | 2017-10-11 09:05 | XRay Report ---
HISTORY: Reason for Exam:PSBO FINDINGS: There are multiple loops of dilated small intestine with air-fluid levels. The largest segment measures 7.5 mm in transverse diameter. There is normal amount of air and stool in the colon. The stomach is nondistended and contains air. No free intra-abdominal air is present. Comparison with the prior exam from 10/10/17 shows mild improvement of the small bowel obstruction. IMPRESSION: Small bowel obstruction which is improving Interpreted and Authenticated by: Zay Juarez 10/11/17
[2017-10-11] MEDS: methylPREDNISolone SOD SUCC 40 MG/ML VIAL IV SCH (09:29)
[2017-10-11] MEDS: FAMOTIDINE/PF 20 MG/2 ML VIAL IV SCH ×2 (09:29→21:29)
[2017-10-11] MEDS: 0.9 % SODIUM CHLORIDE 10 ML SYRINGE IV SCH ×2 (09:30→21:30)
[2017-10-11] MEDS: HEPARIN 5,000 UNIT/ML VIAL SQ SCH ×2 (09:30→21:28)
[2017-10-11] MEDS ORDERED: MAGNESIUM CITRATE 300 ML ORAL.SOL PO ONE (09:36)
[2017-10-11] MEDS: ONDANSETRON 4 MG/2 ML VIAL IV PRN ×2 (09:40→20:02)
--- NOTE | 2017-10-11 12:22 | General Surgery Progress Note ---
Surgical - Auxillary Note - Subjective Patient Information: Note initiated : 10/11/17 at 12:18 pm Service Date, if different from initiated Date: [] Patient: Dayanna Stephens 56 y/o F admitted on 10/03/17 for Abd Pain/ Constipation Post Ostomy/Small Bowel Obst. Chief Complaint: patient feels ok. Says she is feeling hungry although not passed flatus since yesterday evening and no stool yet in ostomy. No nausea Vital Signs Temp Pulse Resp BP Pulse Ox 96.4 F L 82 18 115/77 93 10/11/17 08:00 10/11/17 08:00 10/11/17 08:00 10/11/17 08:00 10/11/17 08:00 Period Temp Pulse Resp BP Sys/Archuleta Pulse Ox Last 24 Hr 96.4 F-97.8 F 77-88 14-18 115-134/72-84 92-97 Intake and Output 10/10/17 10/11/17 10/11/17 21:59 05:59 13:59 Intake Total 200 / 200 1100 / 1100 200 / 200 Output Total 600 / 600 Balance -400 / -400 1100 / 1100 200 / 200 Weight 220 lb 9.6 oz PE: No distress. Sitting up in bed in good spirits ABD: soft, and non tender. Not distended. Ostomy pink: no stool or gas in appliance Xray shows stool and gas in colon. Some air fluid levels mostly unchanged from yesterday. CBC and Chem 7 10/10/17 04:00 10/10/17 04:00 A/P: PSBO vs dysmotility Patient feeling better but no stool or flatus. These episodes seem a chronic issue by her report and usually respond to laxatives. Will trial MOM as long as not nauseated and otherwise feeling well. Follow progress clinically.
[2017-10-11] MEDS ORDERED: MAGNESIUM HYDROXIDE 30 ML ORAL.SUSP PO ONE (15:47)
[2017-10-11] MEDS ORDERED: MAGNESIUM SULFATE 32.48 MEQ in DEXTROSE 5% IN WATER 100 ML IV ONE (20:22)
--- NOTE | 2017-10-11 20:27 | Internal Med Progress Note ---
Medical - PN: Subj Patient information: Note initiated : 10/11/17 at 8:24 pm Service Date, if different from initiated Date: [] Patient: Dayanna Stephens a 56 y/o F admitted on 10/03/17 for Abd Pain/ Constipation Post Ostomy/Small Bowel Obst. Chief Complaint: f/u SBO Interval history: Ms. Stephens is a 56 year old Female with h/o volvulus of the sigmoid colon, s/ p recent surgery by Dr Currie and was being closely followed in the outpatient clinic, presents today to the ER because of pain in the abdomen x 3 days, pain is sharp in the mid abdomen, non radiating, no aggravating relieving factors, noted that it was progressively getting worse, with some distention. She also had some episodes of sweating and dizziness, she therefore presented to the ER for further evaluation. IN the ER The abdomen x ray/ CT scan showed small bowel obstruction. Patients labs unremarkable, patient has h/o chr hypocalcemia, myasthenia gravis, severe anxiety and depression, osteoarthritis, hypothyroidism, autoimmune polyglandular syndrome, sarcoidosis. She will be admitted to medical floor, Gen Surgery consulting for SBO. Radiology trying to place NG tube, under fluoroscopy. The patient notes she has chr arthritis for which she takes some pain mes She also had some pain in the hypogastric regin, sharp shooting, which was told to in the past as nerve pain, The patient will be admitted to tele for further monitoring and management. Dec 22 Patient seen examined, doing well, some nausea, and her chr pain issues, not no new concerns reported she has NG tube with good drainage, X ray this AM is better Calcium was low, she is on high dose calcitriol replacement, mg is normal Dec 23 Patient seen examined, no acute overnight issues, some nausea, NG tube draining well has low mg and calcium, being replaced X ray shows not much improvement in SBO, plan for mag citrate by Surgery, will see how she does. Dec 24 patient seen examined, no acute overnight issues, has low grade temp, but no obvious source plan to check CXR and X ray abdomen today, check procalcitonin and ua patient now has some improved output in the stoma, with some gas, calcium level is 6.0, replace IV, mg 1.7, replace. Dec 25 patient seen examined, tired and did not talk much was anxious overnight needing ativan, which helped She is moving bowels, patient X ray shows improving sbo plan to give diet via NG tube for now as per surgery, Replace IV calcium fever resolved, procalcitonin neg, ua neg, cxr neg, no e/o infection, monitor Oct 08 Patient seen examined, doing well, SBO improving, pt wanting oral trials Plan to d/c NG tube today and start on liquid diet to see how she progresses, patient aware that she may need Placement of NG tube again if she fails this. Resume oral calcium supplements. Patient otherwise denies any other complaints Tico still low, on IV tico as pt still has intermittent spasms. oct 09 patient seen examined, no acute overnight issues pt tolerating po diet well, on clear liquids, likeliy to be advanced to full liquid now. tico low, replace IV and increase oral replacement to 1000mg tid, repalce mg oral and IV plan for d/c home wihen cleared by surgery Oct 10 patient seen examined, pt had episodes of nausea overnight X ray abdomen shwos recurrence of SBO NG tube was attempted but was not possible, Patient allergic to reglan, started on erythromycin for prokientic effect this AM x ray better, patient no longer has nausea NPO status again, continue with erythromycin, start on linzezz 145 mcg dialy , patients reports this helps with he bowels replace mg and calcium IV Oct 11 Had some flatus from ostomy this afternoon. Up ambulating the halls. Starting to have an appetite and feeling hungry, no nausea. Started on erythromycin and Linzess, also receiving milk of magnesia. Still requiring electrolyte replacement. - Constitutional Vitals: Vital Signs Temp Pulse Resp BP Pulse Ox 98.1 F 76 16 114/74 93 10/11/17 19:56 10/11/17 19:56 10/11/17 19:56 10/11/17 19:56 10/11/17 19:56 Period Temp Pulse Resp BP Sys/Archuleta Pulse Ox Last 24 Hr 96.4 F-98.1 F 75-82 16-18 104-121/72-79 93-97 Intake and Output 10/11/17 10/11/17 10/11/17 05:59 13:59 21:59 Intake Total 1100 / 1100 200 / 200 200 / 200 Output Total 900 / 900 Balance 1100 / 1100 200 / 200 -700 / -700 Intake & Output: Intake & Output 10/11/17 10/11/17 10/11/17 05:59 13:59 21:59 Intake Total 1100 / 1100 200 / 200 200 / 200 Output Total 900 / 900 Balance 1100 / 1100 200 / 200 -700 / -700 Intake: IV 1100 / 1100 200 / 200 200 / 200 Dextrose 5%-1/2Ns W/20Meq KCl 1 1000 / 1000 ,000 ml @ 84 mls/hr IV .[id number] [facility] Rx#:[id number] Erythrocin Lactobionate 250 mg 100 / 100 100 / 100 200 / 200 In Sodium Chloride 0.9% 100 ml @ 100 mls/hr IV Q6H [facility] Rx#: [id number] Oral 0 / 0 Output: Void Amount 900 / 900 Exam: General: In bed, in good spirits Chest: Clear, unlabored Cardiovascular: Regular, no edema Abdomen: Soft, very mild diffuse tenderness, no guarding or rebound, facial low rumbling bowel sounds. Ostomy bag without stool. Bag mildly distended. Neuro: Alert, oriented 3, ambulating with normal gait. Medical - PN: Obj Da - Labs CBC & Chem 7: 10/10/17 04:00 10/10/17 04:00 Labs: Abnormal Lab Results 10/10/17 10/10/17 10/09/17 04:00 04:00 04:00 Hgb 11.9 L Chloride 95 L BUN 5 L Creatinine 0.5 L Glucose 127 H 115 H Calcium 7.0 L 6.9 L Magnesium 1.5 L 1.5 L Lactate Dehydrogenase 252 H 256 H Triglycerides 548 H 426 H Meds: Medications Albuterol Sulfate (Ventolin) 2.5 mg NEB Q2HP PRN PRN Reason: Shortness Of Breath Calcitriol (Rocaltrol) 0.5 mcg PT TID [facility] Last Admin: 10/11/17 14:20 Dose: Not Given Calcium Carbonate/Glycine (Calcium Carbonate) 1,000 mg PO TID [facility] Last Admin: 10/11/17 14:20 Dose: Not Given Famotidine (Pepcid) 20 mg IV Q12 [facility] Last Admin: 10/11/17 09:29 Dose: 20 mg Heparin Sodium (Porcine) (Heparin) 5,000 unit SQ Q12 [facility] Last Admin: 10/11/17 09:30 Dose: 5,000 unit Heparin Sodium (Porcine) (Heparin Flush) 2 ml IV Q12 [facility] Last Admin: 10/11/17 09:29 Dose: 2 ml Hydromorphone HCl (Dilaudid) 0.5 mg IV Q2HP PRN PRN Reason: PAIN LEVEL > 6 Last Admin: 10/11/17 16:01 Dose: 0.5 mg Acetaminophen (Ofirmev) 1,000 mg in 100 mls @ 200 mls/hr IV Q8HP PRN PRN Reason: PAIN/FEVER > 101 Last Infusion: 10/11/17 09:12 Dose: Infused Erythromycin Lactobionate 250 (mg/ Sodium Chloride) 100 mls @ 100 mls/hr IV Q6H [facility] Last Infusion: 10/11/17 19:40 Dose: Infused Potassium Chloride/Dextrose/Sod Cl (Dextrose 5%-1/2ns W/20meq Kcl) 1,000 mls @ 84 mls/hr IV .[id number] [facility] Last Admin: 10/11/17 15:23 Dose: Not Given Magnesium Sulfate 32.48 meq/ (Dextrose) 58 mls @ 58 mls/hr IV ONCE ONE Stop: 10/11/17 21:21 Lorazepam (Ativan) 0.5 mg IV Q6HP PRN PRN Reason: ANXIETY/SEDATION Last Admin: 10/10/17 20:39 Dose: 0.5 mg Magnesium Oxide (Magnesium Oxide) 400 mg PO TID [facility] Last Admin: 10/11/17 14:20 Dose: Not Given Methylprednisolone Sodium Succinate (Solu-Medrol) 20 mg IV DAILY [facility] Last Admin: 10/11/17 09:29 Dose: 20 mg Multivitamins (Thera-Plus) 5 ml PO DAILY [facility] Last Admin: 10/11/17 08:04 Dose: Not Given Naloxone HCl (Narcan) 0.1 mg IV Q2MIN PRN PRN Reason: Opiate Reversal Linaclotide (Linzess () 145mg Cap) 1 dose PO DAILY [facility] Last Admin: 10/11/17 08:03 Dose: Not Given Ondansetron HCl (Zofran) 4 mg IV Q6HP PRN PRN Reason: Nausea And Vomiting Last Admin: 10/11/17 20:02 Dose: 4 mg Phenol (Chloroseptic [place]) 5 spray SSP Q2HP PRN PRN Reason: Sore Throat Last Admin: 10/08/17 09:50 Dose: 5 spray Sodium Chloride (Saline Flush) 10 ml IV Q12 [facility] Last Admin: 10/11/17 09:30 Dose: 10 ml - Imaging and cardiology Abdominal x-ray Status: image reviewed by me Additional comments: FINDINGS: There are multiple loops of dilated small intestine with air-fluid levels. The largest segment measures 7.5 mm in transverse diameter. There is normal amount of air and stool in the colon. The stomach is nondistended and contains air. No free intra-abdominal air is present. Comparison with the prior exam from 10/10/17 shows mild improvement of the small bowel obstruction. IMPRESSION: Small bowel obstruction which is improving Medical - PN: A/P - Time Spent With Patient Total time spent is greater than 50% in coordination of care (as documented) at patient's floor/unit and/or counseling patient: - Narrative A/P Narrative: A/P Small bowel obstruction: some improvement again on Saturday, after recurrence of SBO after removal of NG tube. Surgery following, now NPO again, and on IV erythromycin as well as Linzess. Some flatus via ostomy, but no stool. Monitor. Fever: resolved, no /o infection. Hypocalcemia: replace IV, oral once able to, continue calcitriol. Hypomagnesemia: replace IV try to keep mg > 2.0, start on mg oxide when able. 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 Morbid Obesity: PCP to follow Tachycardia, secondary to anxiety/ GI issues, much better now. (has been worked up in the past, and her HR improves with improvement in GI symptoms,: HR stable presently, TSH low but T3 and T4 normal. Hypothyroidism : low TSH, normal t3, t4, resume dose once able to tolerate po. Osteoarthritis: Prn IV tylenol. Hep sq for DVT prophylaxis Full code. Medical - PN: Qual - VTE Deep Vein Thrombosis/Pulmonary Embolism Present on Admission: No
[2017-10-11] MEDS ORDERED: MAGNESIUM SULFATE 8.12 MEQ/2 ML VIAL ONE (21:23)
[2017-10-11] MEDS: LORazepam 2 MG/ML VIAL IV PRN (21:28)
[2017-10-12] MEDS: DEXTROSE 5%-1/2NS W/20MEQ KCL 1,000 ML IV SCH ×2 (00:14→11:02)
[2017-10-12] MEDS: ACETAMINOPHEN 1,000 MG/100 ML BOTTLE IV PRN ×3 (03:59→21:28)
[2017-10-12] MEDS ORDERED: BISACODYL 10 MG SUPP.RECT PR ONE (07:40)
[2017-10-12] MEDS ORDERED: MAGNESIUM HYDROXIDE 30 ML ORAL.SUSP PO ONE ×2 (07:40→13:37)
[2017-10-12] MEDS: ERYTHROMYCIN LACTOBIONATE 250 MG in 0.9 % SODIUM CHLORIDE 100 ML IV SCH ×3 (07:44→17:24)
--- NOTE | 2017-10-12 07:46 | General Surgery Progress Note ---
Surgical - Auxillary Note - Subjective Patient Information: Note initiated : 10/12/17 at 7:42 am Service Date, if different from initiated Date: [] Patient: Dayanna Stephens 56 y/o F admitted on 10/03/17 for Abd Pain/ Constipation Post Ostomy/Small Bowel Obst. Chief Complaint: [] Patient passed a small amount of flatus yesterday afternoon but none since and no stool. Reports she feels hungry Denies abdominal pain. Has been ambulating in the halls throughout yesterday. Vital Signs Temp Pulse Resp BP Pulse Ox 98.0 F 79 16 113/73 92 10/12/17 04:00 10/12/17 04:00 10/12/17 04:00 10/12/17 04:00 10/12/17 04:00 Period Temp Pulse Resp BP Sys/Archuleta Pulse Ox Last 24 Hr 96.4 F-98.1 F 71-82 14-18 104-131/73-85 92-95 Intake and Output 10/11/17 10/12/17 10/12/17 21:59 05:59 13:59 Intake Total 1200 / 1200 308 / 308 Output Total 1025 / 1025 1000 / 1000 400 / 400 Balance 175 / 175 -692 / -692 -400 / -400 Weight 222 lb 4.8 oz PE: no distress. Appears well. Chest: clear CV: regular rhythm, ABD: soft, hypoactive bowel tones. Non tender. Non distended. Ostomy pink without stool or gas in appliance. A/P: PSBO Xrays done this morning without improvement but also no worse. Clinically patient feels ok and despite not passing stool not c/o abdominal pain or nausea and no emesis. Will continue trial of motility agents again today as ideally would like to avoid repeat operation so soon after recent. but if does not open up again may need to proceed to OR. In meantime patient needs nutritional supplementation so will start TPN.
[2017-10-12] MEDS ORDERED: TPN PER PHARMACY IV SCH (07:55)
[2017-10-12] MEDS: ONDANSETRON 4 MG/2 ML VIAL IV PRN (08:36)
[2017-10-12] MEDS: FAMOTIDINE/PF 20 MG/2 ML VIAL IV SCH ×2 (08:49→20:56)
[2017-10-12] MEDS: HEPARIN 5,000 UNIT/ML VIAL SQ SCH ×2 (08:49→20:57)
[2017-10-12] MEDS: 0.9 % SODIUM CHLORIDE 10 ML SYRINGE IV SCH ×2 (08:50→21:03)
[2017-10-12] MEDS: methylPREDNISolone SOD SUCC 40 MG/ML VIAL IV SCH (08:50)
--- NOTE | 2017-10-12 08:52 | XRay Report ---
HISTORY: Reason for Exam:sbo FINDINGS: There are persistent dilated segments of small intestine in the mid abdomen which contain air-fluid levels. The largest segment is in the midline and measures 7.2 cm. There is stool in nondistended colon. The stomach is decompressed. There are bands of discoid atelectasis in the lung bases. Comparison with the prior exam from 10/11/17 shows little change. IMPRESSION: Persistent incomplete small bowel obstruction Interpreted and Authenticated by: Zay Juarez 10/12/17
[2017-10-12 09:25] LABS: ALT/SGPT 15 U/l (0-40); Albumin 3.1 gm/dL (3.2-5.2); Alkaline Phosphatase 72 U/L (39-117); Bilirubin,Direct < 0.2 mg/dL (0.0-0.3); Blood Urea Nitrogen 8 mg/dl (6-20); Gamma Glutamyl Transpeptidase 24 U/L (5-36); Magnesium 3.1 mg/dL (1.6-2.5); Uric Acid 3.9 mg/dL (2.5-8.0)
[2017-10-12] MEDS ORDERED: CALCIUM GLUCONATE 4.65 MEQ/10 ML VIAL IV ONE (09:56)
[2017-10-12] MEDS ORDERED: CALCIUM GLUCONATE 9.3 MEQ in DEXTROSE 5% IN WATER 100 ML IV ONE (10:15)
[2017-10-12] MEDS ORDERED: DEXTROSE 50% 50 ML VIAL IV PRN (10:16)
[2017-10-12] MEDS: HYDROmorphone 2 MG/ML SYRINGE IV PRN ×3 (10:40→17:15)
[2017-10-12] MEDS: CALCIUM CARBONATE 1,250 MG/5 ML ORAL.SUSP PO SCH ×3 (11:01→21:03)
[2017-10-12] MEDS: LINACLOTIDE 145 MG PO SCH (11:01)
[2017-10-12] MEDS: CALCITRIOL 0.25 MCG CAPSULE PT SCH ×3 (11:01→21:03)
[2017-10-12] MEDS: MAGNESIUM OXIDE 400 MG TABLET PO SCH ×3 (11:01→21:03)
[2017-10-12] MEDS: MULTIVITAMINS,THERAPEUTIC 1 ML ORAL.SOL PO SCH (11:01)
[2017-10-12] MEDS: INSULIN LISPRO 1 UNIT/0.01 ML UNIT SQ SCH ×2 (12:39→17:37)
[2017-10-12] MEDS ORDERED: LEVOTHYROXINE 100 MCG VIAL IV ONE (13:15)
[2017-10-12] MEDS ORDERED: [UNRECOGNIZED DRUG - OTHER] IV SCH (14:00)
[2017-10-12] MEDS ORDERED: CALCIUM GLUCONATE IV SCH (14:00)
[2017-10-12] MEDS ORDERED: MVI IV SCH (14:00)
[2017-10-12] MEDS ORDERED: SODIUM CHLORIDE IV SCH (14:00)
[2017-10-12] MEDS ORDERED: POTASSIUM CHLORIDE IV SCH (14:00)
--- NOTE | 2017-10-12 17:13 | Internal Med Progress Note ---
Medical - PN: Subj Patient information: Note initiated : 10/12/17 at 5:10 pm Service Date, if different from initiated Date: [] Patient: Dayanna Stephens a 56 y/o F admitted on 10/03/17 for Abd Pain/ Constipation Post Ostomy/Small Bowel Obst. Chief Complaint: follow-up bowel obstruction Interval history: Ms. Stephens is a 56 year old Female with h/o volvulus of the sigmoid colon, s/ p recent surgery by Dr Currie and was being closely followed in the outpatient clinic, presents today to the ER because of pain in the abdomen x 3 days, pain is sharp in the mid abdomen, non radiating, no aggravating relieving factors, noted that it was progressively getting worse, with some distention. She also had some episodes of sweating and dizziness, she therefore presented to the ER for further evaluation. IN the ER The abdomen x ray/ CT scan showed small bowel obstruction. Patients labs unremarkable, patient has h/o chr hypocalcemia, myasthenia gravis, severe anxiety and depression, osteoarthritis, hypothyroidism, autoimmune polyglandular syndrome, sarcoidosis. She will be admitted to medical floor, Gen Surgery consulting for SBO. Radiology trying to place NG tube, under fluoroscopy. The patient notes she has chr arthritis for which she takes some pain mes She also had some pain in the hypogastric regin, sharp shooting, which was told to in the past as nerve pain, The patient will be admitted to tele for further monitoring and management. Dec 22 Patient seen examined, doing well, some nausea, and her chr pain issues, not no new concerns reported she has NG tube with good drainage, X ray this AM is better Calcium was low, she is on high dose calcitriol replacement, mg is normal Dec 23 Patient seen examined, no acute overnight issues, some nausea, NG tube draining well has low mg and calcium, being replaced X ray shows not much improvement in SBO, plan for mag citrate by Surgery, will see how she does. Dec 24 patient seen examined, no acute overnight issues, has low grade temp, but no obvious source plan to check CXR and X ray abdomen today, check procalcitonin and ua patient now has some improved output in the stoma, with some gas, calcium level is 6.0, replace IV, mg 1.7, replace. Dec 25 patient seen examined, tired and did not talk much was anxious overnight needing ativan, which helped She is moving bowels, patient X ray shows improving sbo plan to give diet via NG tube for now as per surgery, Replace IV calcium fever resolved, procalcitonin neg, ua neg, cxr neg, no e/o infection, monitor Oct 08 Patient seen examined, doing well, SBO improving, pt wanting oral trials Plan to d/c NG tube today and start on liquid diet to see how she progresses, patient aware that she may need Placement of NG tube again if she fails this. Resume oral calcium supplements. Patient otherwise denies any other complaints Tico still low, on IV tico as pt still has intermittent spasms. oct 09 patient seen examined, no acute overnight issues pt tolerating po diet well, on clear liquids, likeliy to be advanced to full liquid now. tico low, replace IV and increase oral replacement to 1000mg tid, repalce mg oral and IV plan for d/c home wihen cleared by surgery Oct 10 patient seen examined, pt had episodes of nausea overnight X ray abdomen shwos recurrence of SBO NG tube was attempted but was not possible, Patient allergic to reglan, started on erythromycin for prokientic effect this AM x ray better, patient no longer has nausea NPO status again, continue with erythromycin, start on linzezz 145 mcg dialy , patients reports this helps with he bowels replace mg and calcium IV Oct 11 Had some flatus from ostomy this afternoon. Up ambulating the halls. Starting to have an appetite and feeling hungry, no nausea. Started on erythromycin and Linzess, also receiving milk of magnesia. Still requiring electrolyte replacement. October 12 Had no further flatus yesterday. Dr. Pulliam as ordered TPN to start. Received milk of magnesia and bisacodyl per ostomy. At the time of my exam, starting to develop bowel sounds. Continues on erythromycin and Linzess - Constitutional Vitals: Vital Signs Temp Pulse Resp BP Pulse Ox 98 F 73 16 118/70 93 10/12/17 15:59 10/12/17 15:59 10/12/17 15:59 10/12/17 15:59 10/12/17 15:59 Period Temp Pulse Resp BP Sys/Archuleta Pulse Ox Last 24 Hr 97.7 F-98.3 F 71-84 14-16 113-146/70-85 92-95 Intake and Output 10/12/17 10/12/17 10/12/17 05:59 13:59 21:59 Intake Total 308 / 308 1480 / 1480 30 / 30 Output Total 1000 / 1000 770 / 770 Balance -692 / -692 710 / 710 Weight 222 lb 4.8 oz Patient Weight 10/13/17 05:59 Weight 222 lb 4.8 oz Intake & Output: Intake & Output 10/12/17 10/12/17 10/12/17 05:59 13:59 21:59 Intake Total 308 / 308 1480 / 1480 30 / 30 Output Total 1000 / 1000 770 / 770 Balance -692 / -692 710 / 710 Weight 222 lb 4.8 oz Intake: IV 308 / 308 1420 / 1420 Calcium Gluconate 9.3 Meq In 120 / 120 Dextrose 5% in Water 100 ml @ 120 mls/hr IV ONCE ONE Rx#: [id number] Dextrose 5%-1/2Ns W/20Meq KCl 1 1000 / 1000 ,000 ml @ 84 mls/hr IV .[id number] [facility] Rx#:[id number] Erythrocin Lactobionate 250 mg 100 / 100 200 / 200 In Sodium Chloride 0.9% 100 ml @ 100 mls/hr IV Q6H [facility] Rx#: [id number] Magnesium Sulfate 32.48 Meq In 108 / 108 Dextrose 5% in Water 100 ml @ 58 mls/hr IV ONCE ONE Rx#: [id number] Oral 60 / 60 30 / 30 Output: Void Amount 1000 / 1000 750 / 750 Stool Emesis Exam: General: Lying in bed, little disappointed that continued bowel obstruction Chest: Respirations unlabored, clear Cardiovascular: Regular Abdomen: Well-healed midline incision, ostomy with tannish mucus, scant. Bowel sounds in all 4 quadrants. Neuro: Alert, oriented, nonfocal Medical - PN: Obj Da - Labs CBC & Chem 7: 10/10/17 04:00 10/12/17 08:15 Labs: Abnormal Lab Results 10/12/17 10/10/17 10/10/17 08:15 04:00 04:00 Hgb 11.9 L Chloride 95 L 95 L Glucose 177 H 127 H Calcium 6.0 L* 7.0 L Magnesium 3.1 H 1.5 L Lactate Dehydrogenase 257 H 252 H Albumin 3.1 L Triglycerides 428 H 548 H Meds: Medications Albuterol Sulfate (Ventolin) 2.5 mg NEB Q2HP PRN PRN Reason: Shortness Of Breath Calcitriol (Rocaltrol) 0.5 mcg PT TID [facility] Last Admin: 10/12/17 14:25 Dose: Not Given Calcium Carbonate/Glycine (Calcium Carbonate) 1,000 mg PO TID [facility] Last Admin: 10/12/17 14:25 Dose: Not Given Dextrose (Dextrose 50%) 50 ml IV UD PRN PRN Reason: Hypoglycemia Diagnostic Test (Pha) (Accu-Chek) 1 each FS Q6H [facility] Last Admin: 10/12/17 12:36 Dose: 1 each Famotidine (Pepcid) 20 mg IV Q12 [facility] Last Admin: 10/12/17 08:49 Dose: 20 mg Heparin Sodium (Porcine) (Heparin) 5,000 unit SQ Q12 [facility] Last Admin: 10/12/17 08:49 Dose: 5,000 unit Heparin Sodium (Porcine) (Heparin Flush) 2 ml IV Q12 [facility] Last Admin: 10/12/17 08:50 Dose: 2 ml Hydromorphone HCl (Dilaudid) 0.5 mg IV Q2HP PRN PRN Reason: PAIN LEVEL > 6 Last Admin: 10/12/17 14:10 Dose: 0.5 mg Acetaminophen (Ofirmev) 1,000 mg in 100 mls @ 200 mls/hr IV Q8HP PRN PRN Reason: PAIN/FEVER > 101 Last Infusion: 10/12/17 12:30 Dose: Infused Erythromycin Lactobionate 250 (mg/ Sodium Chloride) 100 mls @ 100 mls/hr IV Q6H [facility] Last Infusion: 10/12/17 13:30 Dose: Infused Potassium Chloride/Dextrose/Sod Cl (Dextrose 5%-1/2ns W/20meq Kcl) 1,000 mls @ 84 mls/hr IV .[id number] [facility] Last Admin: 10/12/17 11:02 Dose: 84 mls/hr Calcium Gluconate 4.65 meq/Sodium Chloride 20 meq/Potassium Chloride 20 meq/ Multivitamins/Minerals 10 ml/Selenium 60 mcg/ Amino Acids 1,036.5 mls @ 35 mls/ hr IV Q24H [facility] Last Admin: 10/12/17 14:02 Dose: 35 mls/hr Fat Emulsion Intravenous (Intralipid 20%) 250 mls @ 25 mls/hr IV [id number] [facility] Insulin Human Lispro (Humalog) 0 unit SQ Q6 [facility] PRN Reason: Protocol Last Admin: 10/12/17 12:39 Dose: 6 unit Levothyroxine Sodium (Synthroid) 125 mcg IV QAMAC [facility] Lorazepam (Ativan) 0.5 mg IV Q6HP PRN PRN Reason: ANXIETY/SEDATION Last Admin: 10/11/17 21:28 Dose: 0.5 mg Magnesium Oxide (Magnesium Oxide) 400 mg PO TID [facility] Last Admin: 10/12/17 14:25 Dose: Not Given Methylprednisolone Sodium Succinate (Solu-Medrol) 20 mg IV DAILY [facility] Last Admin: 10/12/17 08:50 Dose: 20 mg Multivitamins (Thera-Plus) 5 ml PO DAILY [facility] Last Admin: 10/12/17 11:01 Dose: Not Given Naloxone HCl (Narcan) 0.1 mg IV Q2MIN PRN PRN Reason: Opiate Reversal Linaclotide (Linzess () 145mg Cap) 1 dose PO DAILY [facility] Last Admin: 10/12/17 11:01 Dose: Not Given Ondansetron HCl (Zofran) 4 mg IV Q6HP PRN PRN Reason: Nausea And Vomiting Last Admin: 10/12/17 08:36 Dose: 4 mg Phenol (Chloroseptic [place]) 5 spray SSP Q2HP PRN PRN Reason: Sore Throat Last Admin: 10/08/17 09:50 Dose: 5 spray Sodium Chloride (Saline Flush) 10 ml IV Q12 [facility] Last Admin: 10/12/17 08:50 Dose: 10 ml Medical - PN: A/P - Narrative A/P Narrative: A/P Small bowel obstruction: Recurrence of SBO after removal of NG tube. Surgery following, now NPO again, and on IV erythromycin as well as Linzess. Some fleeting flatus via ostomy Saturday, but no stool. Sat with some bowel sounds after MOM and Dulcolax. Monitor. Beginning TPN. Fever: resolved, no /o infection. Hypocalcemia: replace IV, oral once able to, continue calcitriol. Hypomagnesemia: replace IV try to keep mg > 2.0, start on mg oxide when able. Myasthenia gravis/ Sarcoidosis: On steroids prednisone 20mg qd which is quite a high dose, on IV solumedrol for now, high risk of osteoporosis, pt also needs PCP prophylaxis at this dose if going to be detention, will discuss if PCP has reviewed this with her . Morbid Obesity: PCP to follow Tachycardia, secondary to anxiety/ GI issues, much better now. (has been worked up in the past, and her HR improves with improvement in GI symptoms,: HR stable presently, TSH low but T3 and T4 normal. Hypothyroidism : low TSH, normal t3, t4, resume dose once able to tolerate po. Osteoarthritis: Prn IV tylenol. Hep sq for DVT prophylaxis Full code. Medical - PN: Qual - VTE Deep Vein Thrombosis/Pulmonary Embolism Present on Admission: No
[2017-10-12] MEDS: LORazepam 2 MG/ML VIAL IV PRN (21:29)
[2017-10-13] MEDS: ERYTHROMYCIN LACTOBIONATE 250 MG in 0.9 % SODIUM CHLORIDE 100 ML IV SCH ×4 (00:18→17:34)
[2017-10-13] MEDS: INSULIN LISPRO 1 UNIT/0.01 ML UNIT SQ SCH ×4 (00:28→17:03)
[2017-10-13] MEDS: DEXTROSE 5%-1/2NS W/20MEQ KCL 1,000 ML IV SCH ×3 (02:39→18:45)
[2017-10-13] MEDS: HYDROmorphone 2 MG/ML SYRINGE IV PRN ×5 (03:10→20:58)
[2017-10-13 06:25] LABS: ALT/SGPT 15 U/l (0-40); Albumin 3.1 gm/dL (3.2-5.2); Alkaline Phosphatase 70 U/L (39-117); Bilirubin,Direct < 0.2 mg/dL (0.0-0.3); Blood Urea Nitrogen 11 mg/dl (6-20); Gamma Glutamyl Transpeptidase 25 U/L (5-36); Uric Acid 3.7 mg/dL (2.5-8.0)
[2017-10-13] MEDS: LEVOTHYROXINE 100 MCG VIAL IV SCH (07:12)
[2017-10-13] MEDS ORDERED: CALCIUM GLUCONATE 4.65 MEQ/10 ML VIAL IV ONE (08:08)
[2017-10-13] MEDS: MAGNESIUM OXIDE 400 MG TABLET PO SCH ×3 (08:14→22:21)
[2017-10-13] MEDS: LINACLOTIDE 145 MG PO SCH (08:14)
[2017-10-13] MEDS: CALCIUM CARBONATE 1,250 MG/5 ML ORAL.SUSP PO SCH ×3 (08:14→22:21)
[2017-10-13] MEDS: MULTIVITAMINS,THERAPEUTIC 1 ML ORAL.SOL PO SCH (08:15)
[2017-10-13] MEDS: CALCITRIOL 0.25 MCG CAPSULE PT SCH ×3 (08:15→22:21)
[2017-10-13] MEDS ORDERED: CALCIUM GLUCONATE 9.3 MEQ in DEXTROSE 5% IN WATER 100 ML IV ONE (08:15)
[2017-10-13] MEDS ORDERED: POLYETHYLENE GLYCOL 3350 17 GM PACKET PO ONE (08:42)
--- NOTE | 2017-10-13 08:48 | General Surgery Progress Note ---
Surgical - Auxillary Note - Subjective Patient Information: Note initiated : 10/13/17 at 8:42 am Service Date, if different from initiated Date: [] Patient: Dayanna Stephens 56 y/o F admitted on 10/03/17 for Abd Pain/ Constipation Post Ostomy/Small Bowel Obst. Chief Complaint: [] Patient sitting up in bed smiling. Reports she is feeling well. Started passing stool and gas via ostomy last evening and through night. Denies abdominal pain or nausea. Vital Signs Temp Pulse Resp BP Pulse Ox 98.1 F 80 18 132/86 97 10/13/17 06:46 10/13/17 04:00 10/13/17 06:46 10/13/17 06:46 10/13/17 06:46 Period Temp Pulse Resp BP Sys/Archuleta Pulse Ox Last 24 Hr 97.4 F-98.2 F 59-80 14-18 118-140/70-86 92-98 Intake and Output 10/12/17 10/13/17 10/13/17 21:59 05:59 13:59 Intake Total 130 / 130 1200 / 1200 Output Total 780 / 780 900 / 900 550 / 550 Balance -650 / -650 300 / 300 -550 / -550 Weight 221 lb 11.2 oz PE: No distress Chest: clear bilaterally CV: regular rate and rhythm ABD: soft. non tender. Incision with opening at base but otherwise intact. [place] removed. Wound packing replaced. Less drainage on packing. Wound tunnel length stable. No active drainage or erythema. A/P: PSBO. Unclear if this is only related to PSBO which seems a chronic issue by patient report or if part of her overall dysmotility issues for which she uses medications to maintain motility. Clinically looks well. Will start sips of clears and if tolerated advance slowly. Will also restart some of her usual home motility agents beginning with miralax which she uses daily.
[2017-10-13] MEDS: methylPREDNISolone SOD SUCC 40 MG/ML VIAL IV SCH (09:49)
[2017-10-13] MEDS: FAMOTIDINE/PF 20 MG/2 ML VIAL IV SCH ×2 (09:50→22:07)
[2017-10-13] MEDS: HEPARIN 5,000 UNIT/ML VIAL SQ SCH ×2 (09:51→22:07)
[2017-10-13] MEDS: 0.9 % SODIUM CHLORIDE 10 ML SYRINGE IV SCH ×2 (09:53→22:22)
[2017-10-13] MEDS: ACETAMINOPHEN 1,000 MG/100 ML BOTTLE IV PRN ×2 (11:00→22:07)
[2017-10-13] MEDS ORDERED: SODIUM CHLORIDE IV SCH (14:00)
[2017-10-13] MEDS ORDERED: CALCIUM GLUCONATE IV SCH (14:00)
[2017-10-13] MEDS ORDERED: MVI IV SCH (14:00)
[2017-10-13] MEDS ORDERED: POTASSIUM PHOSPHATE IV SCH (14:00)
[2017-10-13] MEDS ORDERED: [UNRECOGNIZED DRUG - OTHER] IV SCH (14:00)
[2017-10-13] MEDS ORDERED: KETOROLAC 15 MG/ML VIAL IV ONE (15:27)
--- NOTE | 2017-10-13 15:31 | General Surgery Progress Note ---
Surgical - Auxillary Note - Subjective Patient Information: Note initiated : 10/13/17 at 3:29 pm Service Date, if different from initiated Date: [] Patient: Dayanna Stephens 56 y/o F admitted on 10/03/17 for Abd Pain/ Constipation Post Ostomy/Small Bowel Obst. Chief Complaint: [] Patient sitting up in bed. Reports she is feeling well. Has been passing stool and flatus still. Taking in sips of clear liquids. No abdominal pain. reports right hand pain in 3rd knuckle after it "popped" when she was grabbing something. On exam right hand 3rd metacarpophalangeal joint is swollen and tender, but not red. Will check right hand xrays and dose with toradol once for pain to see if this helps.
--- NOTE | 2017-10-13 23:11 | Internal Med Progress Note ---
Medical - PN: Subj Patient information: Note initiated : 10/13/17 at 11:11 pm Service Date, if different from initiated Date: [] Patient: Dayanna Stephens a 56 y/o F admitted on 10/03/17 for Abd Pain/ Constipation Post Ostomy/Small Bowel Obst. Chief Complaint: f/u bowel obstruction Interval history: Ms. Stephens is a 56 year old Female with h/o volvulus of the sigmoid colon, s/ p recent surgery by Dr Currie and was being closely followed in the outpatient clinic, presents today to the ER because of pain in the abdomen x 3 days, pain is sharp in the mid abdomen, non radiating, no aggravating relieving factors, noted that it was progressively getting worse, with some distention. She also had some episodes of sweating and dizziness, she therefore presented to the ER for further evaluation. IN the ER The abdomen x ray/ CT scan showed small bowel obstruction. Patients labs unremarkable, patient has h/o chr hypocalcemia, myasthenia gravis, severe anxiety and depression, osteoarthritis, hypothyroidism, autoimmune polyglandular syndrome, sarcoidosis. She will be admitted to medical floor, Gen Surgery consulting for SBO. Radiology trying to place NG tube, under fluoroscopy. The patient notes she has chr arthritis for which she takes some pain mes She also had some pain in the hypogastric regin, sharp shooting, which was told to in the past as nerve pain, The patient will be admitted to tele for further monitoring and management. Dec 22 Patient seen examined, doing well, some nausea, and her chr pain issues, not no new concerns reported she has NG tube with good drainage, X ray this AM is better Calcium was low, she is on high dose calcitriol replacement, mg is normal Dec 23 Patient seen examined, no acute overnight issues, some nausea, NG tube draining well has low mg and calcium, being replaced X ray shows not much improvement in SBO, plan for mag citrate by Surgery, will see how she does. Dec 24 patient seen examined, no acute overnight issues, has low grade temp, but no obvious source plan to check CXR and X ray abdomen today, check procalcitonin and ua patient now has some improved output in the stoma, with some gas, calcium level is 6.0, replace IV, mg 1.7, replace. Dec 25 patient seen examined, tired and did not talk much was anxious overnight needing ativan, which helped She is moving bowels, patient X ray shows improving sbo plan to give diet via NG tube for now as per surgery, Replace IV calcium fever resolved, procalcitonin neg, ua neg, cxr neg, no e/o infection, monitor Oct 08 Patient seen examined, doing well, SBO improving, pt wanting oral trials Plan to d/c NG tube today and start on liquid diet to see how she progresses, patient aware that she may need Placement of NG tube again if she fails this. Resume oral calcium supplements. Patient otherwise denies any other complaints Tico still low, on IV tico as pt still has intermittent spasms. oct 09 patient seen examined, no acute overnight issues pt tolerating po diet well, on clear liquids, likeliy to be advanced to full liquid now. tico low, replace IV and increase oral replacement to 1000mg tid, repalce mg oral and IV plan for d/c home wihen cleared by surgery Oct 10 patient seen examined, pt had episodes of nausea overnight X ray abdomen shwos recurrence of SBO NG tube was attempted but was not possible, Patient allergic to reglan, started on erythromycin for prokientic effect this AM x ray better, patient no longer has nausea NPO status again, continue with erythromycin, start on linzezz 145 mcg dialy , patients reports this helps with he bowels replace mg and calcium IV Oct 11 Had some flatus from ostomy this afternoon. Up ambulating the halls. Starting to have an appetite and feeling hungry, no nausea. Started on erythromycin and Linzess, also receiving milk of magnesia. Still requiring electrolyte replacement. October 12 Had no further flatus yesterday. Dr. Pulliam as ordered TPN to start. Received milk of magnesia and bisacodyl per ostomy. At the time of my exam, starting to develop bowel sounds. Continues on erythromycin October 13 Was started on small amounts of clear fluids on an hourly basis today. Has tolerated that well. Passing stool and ostomy. Notices continued bowel sounds.correction from previously, and Linzess has been held for the past several days. Needed repeated calcium infusion today. Hopefully we'll be able to start by mouth meds tomorrow. - Constitutional Vitals: Vital Signs Temp Pulse Resp BP Pulse Ox 98.7 F 72 16 120/79 95 10/13/17 20:00 10/13/17 20:00 10/13/17 20:00 10/13/17 20:00 10/13/17 20:00 Period Temp Pulse Resp BP Sys/Archuleta Pulse Ox Last 24 Hr 97.4 F-98.7 F 59-80 16-18 120-143/79-87 95-98 Intake and Output 10/13/17 10/13/17 10/14/17 13:59 21:59 05:59 Intake Total 300 / 300 460 / 460 Output Total 550 / 550 Balance -250 / -250 460 / 460 Weight 221 lb 14.4 oz Patient Weight 10/14/17 05:59 Weight 221 lb 14.4 oz Intake & Output: Intake & Output 10/13/17 10/13/17 10/14/17 13:59 21:59 05:59 Intake Total 300 / 300 460 / 460 Output Total 550 / 550 Balance -250 / -250 460 / 460 Weight 221 lb 14.4 oz Intake: IV 300 / 300 100 / 100 Erythrocin Lactobionate 250 mg 200 / 200 100 / 100 In Sodium Chloride 0.9% 100 ml @ 100 mls/hr IV Q6H [facility] Rx#: [id number] Oral 360 / 360 Output: Void Amount 450 / 450 Stool 100 / 100 Other: # Voids 1 Exam: General: In bed, in no acute distress, in pretty good spirits Chest: Clear, no rales Cardiovascular: Regular Abdomen: Soft, active bowel sounds throughout. Some stool in ostomy. Neuro: Alert, oriented, nonfocal Medical - PN: Obj Da - Labs CBC & Chem 7: 10/10/17 04:00 10/13/17 04:00 Labs: Abnormal Lab Results 10/13/17 10/12/17 04:00 08:15 Chloride 95 L Glucose 177 H 177 H Calcium 6.0 L* 6.0 L* Magnesium 3.0 H 3.1 H Lactate Dehydrogenase 275 H 257 H Albumin 3.1 L 3.1 L Triglycerides 420 H 428 H Meds: Medications Albuterol Sulfate (Ventolin) 2.5 mg NEB Q2HP PRN PRN Reason: Shortness Of Breath Calcitriol (Rocaltrol) 0.5 mcg PT TID [facility] Last Admin: 10/13/17 22:21 Dose: Not Given Calcium Carbonate/Glycine (Calcium Carbonate) 1,000 mg PO TID [facility] Last Admin: 10/13/17 22:21 Dose: Not Given Dextrose (Dextrose 50%) 50 ml IV UD PRN PRN Reason: Hypoglycemia Diagnostic Test (Pha) (Accu-Chek) 1 each FS Q6H [facility] Last Admin: 10/13/17 17:01 Dose: 1 each Famotidine (Pepcid) 20 mg IV Q12 [facility] Last Admin: 10/13/17 22:07 Dose: 20 mg Heparin Sodium (Porcine) (Heparin) 5,000 unit SQ Q12 [facility] Last Admin: 10/13/17 22:07 Dose: 5,000 unit Heparin Sodium (Porcine) (Heparin Flush) 2 ml IV Q12 [facility] Last Admin: 10/13/17 22:21 Dose: Not Given Hydromorphone HCl (Dilaudid) 0.5 mg IV Q2HP PRN PRN Reason: PAIN LEVEL > 6 Last Admin: 10/13/17 20:58 Dose: 0.5 mg Acetaminophen (Ofirmev) 1,000 mg in 100 mls @ 200 mls/hr IV Q8HP PRN PRN Reason: PAIN/FEVER > 101 Last Admin: 10/13/17 22:07 Dose: 200 mls/hr Erythromycin Lactobionate 250 (mg/ Sodium Chloride) 100 mls @ 100 mls/hr IV Q6H [facility] Last Infusion: 10/13/17 18:35 Dose: Infused Potassium Chloride/Dextrose/Sod Cl (Dextrose 5%-1/2ns W/20meq Kcl) 1,000 mls @ 84 mls/hr IV .[id number] [facility] Last Admin: 10/13/17 12:05 Dose: Not Given Fat Emulsion Intravenous (Intralipid 20%) 250 mls @ 25 mls/hr IV [id number] [facility] Calcium Gluconate 9.3 meq/Sodium Chloride 30 meq/Potassium Phosphate 22 meq/ Multivitamins/Minerals 10 ml/Selenium 60 mcg/ Amino Acids 2,044 mls @ 70 mls/ hr IV Q24H [facility] Last Admin: 10/13/17 14:35 Dose: 70 mls/hr Insulin Human Lispro (Humalog) 0 unit SQ Q6 [facility] PRN Reason: Protocol Last Admin: 10/13/17 17:03 Dose: 10 unit Levothyroxine Sodium (Synthroid) 125 mcg IV QAMAC [facility] Last Admin: 12/31/17 07:12 Dose: 125 mcg Lorazepam (Ativan) 0.5 mg IV Q6HP PRN PRN Reason: ANXIETY/SEDATION Last Admin: 10/12/17 21:29 Dose: 0.5 mg Magnesium Oxide (Magnesium Oxide) 400 mg PO TID [facility] Last Admin: 10/13/17 22:21 Dose: Not Given Methylprednisolone Sodium Succinate (Solu-Medrol) 20 mg IV DAILY [facility] Last Admin: 10/13/17 09:49 Dose: 20 mg Multivitamins (Thera-Plus) 5 ml PO DAILY [facility] Last Admin: 10/13/17 08:15 Dose: Not Given Naloxone HCl (Narcan) 0.1 mg IV Q2MIN PRN PRN Reason: Opiate Reversal Linaclotide (Linzess () 145mg Cap) 1 dose PO DAILY [facility] Last Admin: 10/13/17 08:14 Dose: Not Given Ondansetron HCl (Zofran) 4 mg IV Q6HP PRN PRN Reason: Nausea And Vomiting Last Admin: 10/12/17 08:36 Dose: 4 mg Phenol (Chloroseptic [place]) 5 spray SSP Q2HP PRN PRN Reason: Sore Throat Last Admin: 10/08/17 09:50 Dose: 5 spray Sodium Chloride (Saline Flush) 10 ml IV Q12 [facility] Last Admin: 10/13/17 22:22 Dose: Not Given Medical - PN: A/P - Time Spent With Patient Total time spent is greater than 50% in coordination of care (as documented) at patient's floor/unit and/or counseling patient: - Narrative A/P Narrative: A/P Small bowel obstruction: Recurrence of SBO after removal of NG tube. Surgery following, now with some return of function and starting on liquids very slowly. Currently tolerating them Saturday evening. On IV erythromycin (but Linzess has not been given). Continue to monitor. Continue TPN. Fever: resolved, no /o infection. Hypocalcemia: replace IV again on Sun; oral once able to continue calcitriol. Hypomagnesemia: replace IV try to keep mg > 2.0, start on mg oxide when able. Myasthenia gravis/ Sarcoidosis: On steroids prednisone 20mg qd which is quite a high dose, on IV solumedrol for now, high risk of osteoporosis, pt also needs PCP prophylaxis at this dose if going to be intermediate, will discuss if PCP has reviewed this with her . Morbid Obesity: PCP to follow Tachycardia, secondary to anxiety/ GI issues, much better now. (has been worked up in the past, and her HR improves with improvement in GI symptoms,: HR stable presently, TSH low but T3 and T4 normal. Hypothyroidism : low TSH, normal t3, t4, resume dose once able to tolerate po. Osteoarthritis: Prn IV tylenol. Hep sq for DVT prophylaxis Full code. Medical - PN: Qual - VTE Deep Vein Thrombosis/Pulmonary Embolism Present on Admission: No
[2017-10-14] MEDS: ERYTHROMYCIN LACTOBIONATE 250 MG in 0.9 % SODIUM CHLORIDE 100 ML IV SCH ×2 (00:22→07:37)
[2017-10-14] MEDS: INSULIN LISPRO 1 UNIT/0.01 ML UNIT SQ SCH ×5 (00:23→23:49)
[2017-10-14] MEDS: HYDROmorphone 2 MG/ML SYRINGE IV PRN ×3 (00:23→07:48)
[2017-10-14] MEDS: LORazepam 2 MG/ML VIAL IV PRN ×2 (02:21→22:12)
[2017-10-14 07:10] LABS: ALT/SGPT 13 U/l (0-40); Albumin 3.1 gm/dL (3.2-5.2); Albumin/Globulin Ratio 1.3 (1.0-2.3); Alkaline Phosphatase 58 U/L (39-117); Bilirubin,Direct < 0.2 mg/dL (0.0-0.3); Blood Urea Nitrogen 15 mg/dl (6-20); Gamma Glutamyl Transpeptidase 22 U/L (5-36); Uric Acid 3.2 mg/dL (2.5-8.0)
[2017-10-14] MEDS: LEVOTHYROXINE 100 MCG VIAL IV SCH (07:38)
[2017-10-14] MEDS ORDERED: CALCIUM GLUCONATE 4.65 MEQ/10 ML VIAL IV ONE (08:30)
[2017-10-14] MEDS ORDERED: 0.9 % SODIUM CHLORIDE 1,000 ML IV ONE (08:30)
[2017-10-14] MEDS ORDERED: SODIUM POLYSTYRENE SULFONATE 15 GM/60 ML SUSPENSION PO ONE (08:33)
--- NOTE | 2017-10-14 08:35 | XRay Report ---
CLINICAL INFORMATION: Third metacarpal pain with popping COMPARISON: None. FINDINGS: There is severe degeneration in the second and third MCP joint, moderate degeneration in the second and fourth PIP and mild degeneration in the remaining interphalangeal joints. The lateral view shows marked subluxation of the fifth MCP (confirmed by technologist on observation during the exam). The third MCP is anatomically aligned, however. There are no focal osseous abnormalities. A 6 mm ossification in the superficial soft tissues overlying the first metacarpal base appreciated IMPRESSION: 1. No evidence of fracture or dislocation of the third MCP region. There is severe degeneration, however. 2. Degeneration in the other MCP and PIP joints - as described 3. Subluxation of the fifth MCP seen only on lateral view. This appears to be dynamic and, apparently, is a region devoid of symptoms Interpreted and Authenticated by: All Lundberg 10/14/17
[2017-10-14] MEDS: HEPARIN 5,000 UNIT/ML VIAL SQ SCH ×2 (08:54→21:37)
[2017-10-14] MEDS: CALCIUM CARBONATE 1,250 MG/5 ML ORAL.SUSP PO SCH ×4 (08:54→23:22)
[2017-10-14] MEDS: LINACLOTIDE 145 MG PO SCH ×2 (08:56→09:59)
[2017-10-14] MEDS: MAGNESIUM OXIDE 400 MG TABLET PO SCH ×4 (08:56→23:23)
[2017-10-14] MEDS: FAMOTIDINE/PF 20 MG/2 ML VIAL IV SCH ×2 (08:56→21:37)
[2017-10-14] MEDS: methylPREDNISolone SOD SUCC 40 MG/ML VIAL IV SCH (08:58)
[2017-10-14] MEDS: 0.9 % SODIUM CHLORIDE 10 ML SYRINGE IV SCH ×3 (08:58→21:39)
[2017-10-14] MEDS: CALCITRIOL 0.25 MCG CAPSULE PT SCH ×4 (08:58→23:24)
[2017-10-14] MEDS ORDERED: CALCIUM GLUCONATE 9.3 MEQ in DEXTROSE 5% IN WATER 100 ML IV ONE (09:00)
[2017-10-14] MEDS: MULTIVITAMINS,THERAPEUTIC 1 ML ORAL.SOL PO SCH (09:00)
--- NOTE | 2017-10-14 10:03 | General Surgery Progress Note ---
Surgical - Auxillary Note - Subjective Patient Information: Note initiated : 10/14/17 at 9:52 am Service Date, if different from initiated Date: [] Patient: Dayanna Stephens 56 y/o F admitted on 10/03/17 for Abd Pain/ Constipation Post Ostomy/Small Bowel Obst. Chief Complaint: [] Patient resting in bed. Feels tired but well. Says she continued to pass stool and gas via ostomy. Denies nausea or emesis. Denies abdominal pain. Initial K level drawn this morning reported high at 5.9. Repeat K= 4.3. Vital Signs Temp Pulse Resp BP Pulse Ox 97.4 F 74 20 163/81 97 10/14/17 07:56 10/14/17 07:32 10/14/17 07:56 10/14/17 07:56 10/14/17 07:56 Period Temp Pulse Resp BP Sys/Archuleta Pulse Ox Last 24 Hr 96.9 F-98.7 F 57-74 16-20 120-163/79-88 93-98 Intake and Output 10/13/17 10/14/17 10/14/17 21:59 05:59 13:59 Intake Total 1460 / 1460 440 / 440 100 / 100 Output Total 475 / 475 Balance 1460 / 1460 -35 / -35 100 / 100 Weight 221 lb 14.4 oz PE: No distress Chest: clear bilaterally CV: regular rhythm and rate. ABD: soft and non tender. Incision mostly intact. Wound stable from yesterday. CBC and Chem 7 10/10/17 04:00 10/14/17 08:45 A/P: PSBO vs GI dysmotility: passing stool and gas Clear liquids today with protein supplements. Will get patient back on her usual motility agents today. If tolerated convert meds to oral meds tomorrow and if tolerated then home. Initial high K level likely due to blood draw from PICC line where patient was receiving TPN. Repeat draw was from a peripheral stick with normal level result. Hand x rays done for right hand pain and swelling. No fracture but degenerative changes noted.
[2017-10-14] MEDS: ACETAMINOPHEN 1,000 MG/100 ML BOTTLE IV PRN ×2 (11:44→22:13)
[2017-10-14] MEDS: IBUPROFEN 100 MG/5 ML ORAL SUSP PO PRN ×2 (12:35→21:39)
[2017-10-14] MEDS ORDERED: [UNRECOGNIZED DRUG - REMARK] IV SCH (14:00)
[2017-10-14] MEDS ORDERED: POLYETHYLENE GLYCOL 3350 17 GM PACKET PO ONE (14:38)
--- NOTE | 2017-10-14 15:53 | Internal Med Progress Note ---
Medical - PN: Subj Patient information: Note initiated : 10/14/17 at 3:50 pm Service Date, if different from initiated Date: [] Patient: Dayanna Stephens a 56 y/o F admitted on 10/03/17 for Abd Pain/ Constipation Post Ostomy/Small Bowel Obst. Chief Complaint: follow-up bowel obstruction Interval history: Ms. Stephens is a 56 year old Female with h/o volvulus of the sigmoid colon, s/ p recent surgery by Dr Currie and was being closely followed in the outpatient clinic, presents today to the ER because of pain in the abdomen x 3 days, pain is sharp in the mid abdomen, non radiating, no aggravating relieving factors, noted that it was progressively getting worse, with some distention. She also had some episodes of sweating and dizziness, she therefore presented to the ER for further evaluation. IN the ER The abdomen x ray/ CT scan showed small bowel obstruction. Patients labs unremarkable, patient has h/o chr hypocalcemia, myasthenia gravis, severe anxiety and depression, osteoarthritis, hypothyroidism, autoimmune polyglandular syndrome, sarcoidosis. She will be admitted to medical floor, Gen Surgery consulting for SBO. Radiology trying to place NG tube, under fluoroscopy. The patient notes she has chr arthritis for which she takes some pain mes She also had some pain in the hypogastric regin, sharp shooting, which was told to in the past as nerve pain, The patient will be admitted to tele for further monitoring and management. Dec 22 Patient seen examined, doing well, some nausea, and her chr pain issues, not no new concerns reported she has NG tube with good drainage, X ray this AM is better Calcium was low, she is on high dose calcitriol replacement, mg is normal Dec 23 Patient seen examined, no acute overnight issues, some nausea, NG tube draining well has low mg and calcium, being replaced X ray shows not much improvement in SBO, plan for mag citrate by Surgery, will see how she does. Dec 24 patient seen examined, no acute overnight issues, has low grade temp, but no obvious source plan to check CXR and X ray abdomen today, check procalcitonin and ua patient now has some improved output in the stoma, with some gas, calcium level is 6.0, replace IV, mg 1.7, replace. Dec 25 patient seen examined, tired and did not talk much was anxious overnight needing ativan, which helped She is moving bowels, patient X ray shows improving sbo plan to give diet via NG tube for now as per surgery, Replace IV calcium fever resolved, procalcitonin neg, ua neg, cxr neg, no e/o infection, monitor Oct 08 Patient seen examined, doing well, SBO improving, pt wanting oral trials Plan to d/c NG tube today and start on liquid diet to see how she progresses, patient aware that she may need Placement of NG tube again if she fails this. Resume oral calcium supplements. Patient otherwise denies any other complaints Tico still low, on IV tico as pt still has intermittent spasms. oct 09 patient seen examined, no acute overnight issues pt tolerating po diet well, on clear liquids, likeliy to be advanced to full liquid now. tico low, replace IV and increase oral replacement to 1000mg tid, repalce mg oral and IV plan for d/c home wihen cleared by surgery Oct 10 patient seen examined, pt had episodes of nausea overnight X ray abdomen shwos recurrence of SBO NG tube was attempted but was not possible, Patient allergic to reglan, started on erythromycin for prokientic effect this AM x ray better, patient no longer has nausea NPO status again, continue with erythromycin, start on linzezz 145 mcg dialy , patients reports this helps with he bowels replace mg and calcium IV Oct 11 Had some flatus from ostomy this afternoon. Up ambulating the halls. Starting to have an appetite and feeling hungry, no nausea. Started on erythromycin and Linzess, also receiving milk of magnesia. Still requiring electrolyte replacement. October 12 Had no further flatus yesterday. Dr. Pulliam as ordered TPN to start. Received milk of magnesia and bisacodyl per ostomy. At the time of my exam, starting to develop bowel sounds. Continues on erythromycin October 13 Was started on small amounts of clear fluids on an hourly basis today. Has tolerated that well. Passing stool and ostomy. Notices continued bowel sounds.correction from previously, and Linzess has been held for the past several days. Needed repeated calcium infusion today. Hopefully we'll be able to start by mouth meds tomorrow. Oct 14 Continues to tolerate clear fluids. Spirits are good because she is tolerating oral intake and continues to have flatus and stool via her ostomy. No nausea or vomiting. No abdominal pain. - Constitutional Vitals: Vital Signs Temp Pulse Resp BP Pulse Ox 97.9 F 74 20 145/80 96 10/14/17 11:33 10/14/17 07:32 10/14/17 11:33 10/14/17 11:33 10/14/17 11:33 Period Temp Pulse Resp BP Sys/Archuleta Pulse Ox Last 24 Hr 96.9 F-98.7 F 57-74 16-20 120-163/79-88 93-98 Intake and Output 10/14/17 10/14/17 10/14/17 05:59 13:59 21:59 Intake Total 440 / 440 1550 / 1550 Output Total 475 / 475 1325 / 1325 Balance -35 / -35 225 / 225 Intake & Output: Intake & Output 10/14/17 10/14/17 10/14/17 05:59 13:59 21:59 Intake Total 440 / 440 1550 / 1550 Output Total 475 / 475 1325 / 1325 Balance -35 / -35 225 / 225 Intake: IV 200 / 200 1320 / 1320 Erythrocin Lactobionate 250 mg 100 / 100 100 / 100 In Sodium Chloride 0.9% 100 ml @ 100 mls/hr IV Q6H [facility] Rx#: [id number] Oral 240 / 240 230 / 230 Output: Void Amount 400 / 400 1250 / 1250 Stool 75 / 75 75 / 75 Other: # Voids 1 Exam: General: In bed, no acute distress Chest: Clear Cardiac: Regular, no edema Abdomen: Soft, no guarding or rebound, bowel sounds present Neuro: Alert, oriented, moves all extremities, nonfocal Medical - PN: Obj Da - Labs CBC & Chem 7: 10/10/17 04:00 10/14/17 08:45 Labs: Abnormal Lab Results 10/14/17 10/13/17 10/12/17 04:00 04:00 08:15 Potassium 5.9 H* Chloride 95 L Glucose 449 H 177 H 177 H Calcium 6.1 L 6.0 L* 6.0 L* Magnesium 3.0 H 3.1 H Lactate Dehydrogenase 261 H 275 H 257 H Total Protein 5.4 L Albumin 3.1 L 3.1 L 3.1 L Triglycerides 425 H 420 H 428 H Meds: Medications Albuterol Sulfate (Ventolin) 2.5 mg NEB Q2HP PRN PRN Reason: Shortness Of Breath Calcitriol (Rocaltrol) 0.5 mcg PT TID [facility] Last Admin: 10/14/17 14:29 Dose: Not Given Calcium Carbonate/Glycine (Calcium Carbonate) 1,000 mg PO TID [facility] Last Admin: 10/14/17 14:29 Dose: Not Given Dextrose (Dextrose 50%) 50 ml IV UD PRN PRN Reason: Hypoglycemia Diagnostic Test (Pha) (Accu-Chek) 1 each FS Q6H [facility] Last Admin: 10/14/17 12:44 Dose: 1 each Famotidine (Pepcid) 20 mg IV Q12 [facility] Last Admin: 10/14/17 08:56 Dose: 20 mg Heparin Sodium (Porcine) (Heparin) 5,000 unit SQ Q12 [facility] Last Admin: 10/14/17 08:54 Dose: 5,000 unit Heparin Sodium (Porcine) (Heparin Flush) 2 ml IV Q12 [facility] Last Admin: 10/14/17 08:55 Dose: Not Given Hydromorphone HCl (Dilaudid) 0.5 mg IV Q2HP PRN PRN Reason: PAIN LEVEL > 6 Last Admin: 10/14/17 07:48 Dose: 0.5 mg Acetaminophen (Ofirmev) 1,000 mg in 100 mls @ 200 mls/hr IV Q8HP PRN PRN Reason: PAIN/FEVER > 101 Last Infusion: 10/14/17 12:14 Dose: Infused Fat Emulsion Intravenous (Intralipid 20%) 250 mls @ 25 mls/hr IV [id number] [facility] Calcium Gluconate 9.3 meq/Sodium Chloride 30 meq/Multivitamins/Minerals 10 ml/ Selenium 60 mcg/ Amino Acids 2,039 mls @ 70 mls/hr IV Q24H [facility] Last Admin: 10/14/17 14:11 Dose: 70 mls/hr Ibuprofen (Motrin) 400 mg PO Q8HP PRN PRN Reason: Pain Last Admin: 10/14/17 12:35 Dose: 400 mg Insulin Human Lispro (Humalog) 0 unit SQ Q6 [facility] PRN Reason: Protocol Last Admin: 10/14/17 12:45 Dose: 12 unit Levothyroxine Sodium (Synthroid) 125 mcg IV QAMAC [facility] Last Admin: 10/14/17 07:38 Dose: 125 mcg Lorazepam (Ativan) 0.5 mg IV Q6HP PRN PRN Reason: ANXIETY/SEDATION Last Admin: 10/14/17 02:21 Dose: 0.5 mg Magnesium Oxide (Magnesium Oxide) 400 mg PO TID [facility] Last Admin: 10/14/17 14:29 Dose: Not Given Methylprednisolone Sodium Succinate (Solu-Medrol) 20 mg IV DAILY [facility] Last Admin: 10/14/17 08:58 Dose: 20 mg Multivitamins (Thera-Plus) 5 ml PO DAILY [facility] Last Admin: 10/14/17 09:00 Dose: Not Given Naloxone HCl (Narcan) 0.1 mg IV Q2MIN PRN PRN Reason: Opiate Reversal Linaclotide (Linzess () 145mg Cap) 1 dose PO DAILY [facility] Last Admin: 10/14/17 09:59 Dose: 1 dose Ondansetron HCl (Zofran) 4 mg IV Q6HP PRN PRN Reason: Nausea And Vomiting Last Admin: 10/12/17 08:36 Dose: 4 mg Phenol (Chloroseptic [place]) 5 spray SSP Q2HP PRN PRN Reason: Sore Throat Last Admin: 10/08/17 09:50 Dose: 5 spray Polyethylene Glycol (Miralax) 17 gm PO DAILY [facility] Sodium Chloride (Saline Flush) 10 ml IV Q12 [facility] Last Admin: 10/14/17 08:58 Dose: Not Given Medical - PN: A/P - Narrative A/P Narrative: A/P Small bowel obstruction: Recurrence of SBO after removal of NG tube. Surgery following, now with return of function and starting on liquids very slowly. Currently tolerating them Saturday evening. On IV erythromycin, oral Linzess now resumed Saturday. Continue to monitor. Continue TPN. Fever: resolved, no /o infection. Hypocalcemia: replace IV again on Sat and Saturday; oral once able to continue calcitriol. Hyperkalemia reported on morning labs. Suspect this was lab error as was normal on redraw Hypomagnesemia: replace IV try to keep mg > 2.0, start on mg oxide when able. 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 Morbid Obesity: PCP to follow Tachycardia, secondary to anxiety/ GI issues, much better now. (has been worked up in the past, and her HR improves with improvement in GI symptoms,: HR stable presently, TSH low but T3 and T4 normal. Hypothyroidism : low TSH, normal t3, t4, resume dose once able to tolerate po. Osteoarthritis: Prn IV tylenol. Hep sq for DVT prophylaxis Full code. Medical - PN: Qual - VTE Deep Vein Thrombosis/Pulmonary Embolism Present on Admission: No
[2017-10-14] MEDS ORDERED: FAT EMULSION 20% 250 ML IV SCH (16:00)
[2017-10-15] MEDS: IBUPROFEN 100 MG/5 ML ORAL SUSP PO PRN ×2 (05:55→18:25)
[2017-10-15] MEDS: INSULIN LISPRO 1 UNIT/0.01 ML UNIT SQ SCH ×3 (05:56→18:19)
[2017-10-15 06:22] LABS: Basophils # (Auto) 0 K/mcL (0.0-0.3); Basophils % (Auto) 0.3 % (0.0-2.0); Eosinophils # (Auto) 0.1 K/mcL (0.0-0.7); Eosinophils % (Auto) 0.8 % (0.0-7.0); Granulocytes % (Auto) 69.5 % (38.0-78.0); Lymphocytes # (Auto) 1.8 K/mcL (1.5-4.8); Mean Cell Volume 89.2 fL (80.0-100.0); Mean Corpuscular Hemoglobin 29.4 pg (26.0-34.0); Monocytes % (Auto) 10.4 % (1.0-12.0); Platelet Count 311 K/mcL (140-440); RBC 3.89 M/mcL (4.00-5.20)
[2017-10-15 06:41] LABS: ALT/SGPT 16 U/l (0-40); Albumin 3.3 gm/dL (3.2-5.2); Albumin/Globulin Ratio 1.2 (1.0-2.3); Alkaline Phosphatase 64 U/L (39-117); Bilirubin,Direct < 0.2 mg/dL (0.0-0.3); Blood Urea Nitrogen 18 mg/dl (6-20); Gamma Glutamyl Transpeptidase 27 U/L (5-36); Magnesium 1.4 mg/dL (1.6-2.5); Uric Acid 3.1 mg/dL (2.5-8.0)
[2017-10-15] MEDS: LEVOTHYROXINE 100 MCG VIAL IV SCH (07:11)
[2017-10-15] MEDS: ACETAMINOPHEN 1,000 MG/100 ML BOTTLE IV PRN ×3 (07:32→20:32)
--- NOTE | 2017-10-15 07:58 | General Surgery Progress Note ---
Surgical - Auxillary Note - Subjective Patient Information: Note initiated : 10/15/17 at 7:51 am Service Date, if different from initiated Date: [] Patient: Dayanna Stephens 56 y/o F admitted on 10/03/17 for Abd Pain/ Constipation Post Ostomy/Small Bowel Obst. Chief Complaint: [] Patient resting in bed. Reports she had a good night. Slept and rested well. Denies abdominal pain or nausea. Tolerated clear liquids yesterday. Passing stool and gas via ostomy with current motility agents regimen. Vital Signs Temp Pulse Resp BP Pulse Ox 97.9 F 75 16 159/90 97 10/15/17 04:00 10/15/17 07:51 10/15/17 04:00 10/15/17 04:00 10/15/17 07:51 Period Temp Pulse Resp BP Sys/Archuleta Pulse Ox Last 24 Hr 97.2 F-99.1 F 69-101 16-22 123-164/80-90 92-97 Intake and Output 10/14/17 10/15/17 10/15/17 21:59 05:59 13:59 Intake Total 736 / 736 220 / 220 120 / 120 Output Total 3160 / 3160 775 / 775 Balance -2424 / -2424 220 / 220 -655 / -655 Weight 221 lb 4.8 oz PE: No distress Chest: Clear bilaterally CV: regular rate and rhythm ABD: soft, non tender. incision intact without erythema. Inferior wound opening with dressing in place no active drainage. Ext: warm. No edema. CBC and Chem 7 10/15/17 04:50 10/15/17 04:50 A/P: PSBO vs dysmotility. Bowel function improved. Continue regular motility agents. Advance diet and if tolerated probable home soon. Convert meds back to p.o. to see if tolerated. Ambulate.
[2017-10-15] MEDS ORDERED: MAGNESIUM SULFATE 32.48 MEQ in DEXTROSE 5% IN WATER 50 ML IV ONE (08:07)
[2017-10-15] MEDS ORDERED: POLYETHYLENE GLYCOL 3350 17 GM PACKET PO SCH (09:00)
[2017-10-15] MEDS: FAMOTIDINE/PF 20 MG/2 ML VIAL IV SCH ×2 (09:04→22:39)
[2017-10-15] MEDS: CALCITRIOL 0.25 MCG CAPSULE PT SCH ×3 (09:05→22:43)
[2017-10-15] MEDS: MULTIVITAMINS,THERAPEUTIC 1 ML ORAL.SOL PO SCH (09:05)
[2017-10-15] MEDS: HEPARIN 5,000 UNIT/ML VIAL SQ SCH ×2 (09:05→22:38)
[2017-10-15] MEDS: MAGNESIUM OXIDE 400 MG TABLET PO SCH ×3 (09:05→22:39)
[2017-10-15] MEDS: methylPREDNISolone SOD SUCC 40 MG/ML VIAL IV SCH (09:05)
[2017-10-15] MEDS: CALCIUM CARBONATE 1,250 MG/5 ML ORAL.SUSP PO SCH ×3 (09:05→22:38)
[2017-10-15] MEDS: 0.9 % SODIUM CHLORIDE 10 ML SYRINGE IV SCH ×2 (09:06→22:43)
[2017-10-15] MEDS: LINACLOTIDE 145 MG PO SCH (09:06)
[2017-10-15] MEDS: POLYETHYLENE GLYCOL 3350 17 GM PACKET PO SCH ×2 (09:08→22:39)
[2017-10-15] MEDS: LEVOTHYROXINE 125 MCG TABLET PO SCH (10:07)
[2017-10-15] MEDS: LORazepam 2 MG/ML VIAL IV PRN ×2 (15:16→22:40)
[2017-10-15] MEDS: ONDANSETRON 4 MG/2 ML VIAL IV PRN (19:11)
--- NOTE | 2017-10-15 20:03 | Internal Med Progress Note ---
Medical - PN: Subj Patient information: Note initiated : 10/15/17 at 8:00 pm Service Date, if different from initiated Date: [] Patient: Dayanna Stephens a 56 y/o F admitted on 10/03/17 for Abd Pain/ Constipation Post Ostomy/Small Bowel Obst. Chief Complaint: f/u SBO Interval history: Ms. Stephens is a 56 year old Female with h/o volvulus of the sigmoid colon, s/ p recent surgery by Dr Currie and was being closely followed in the outpatient clinic, presents today to the ER because of pain in the abdomen x 3 days, pain is sharp in the mid abdomen, non radiating, no aggravating relieving factors, noted that it was progressively getting worse, with some distention. She also had some episodes of sweating and dizziness, she therefore presented to the ER for further evaluation. IN the ER The abdomen x ray/ CT scan showed small bowel obstruction. Patients labs unremarkable, patient has h/o chr hypocalcemia, myasthenia gravis, severe anxiety and depression, osteoarthritis, hypothyroidism, autoimmune polyglandular syndrome, sarcoidosis. She will be admitted to medical floor, Gen Surgery consulting for SBO. Radiology trying to place NG tube, under fluoroscopy. The patient notes she has chr arthritis for which she takes some pain mes She also had some pain in the hypogastric regin, sharp shooting, which was told to in the past as nerve pain, The patient will be admitted to tele for further monitoring and management. Dec 22 Patient seen examined, doing well, some nausea, and her chr pain issues, not no new concerns reported she has NG tube with good drainage, X ray this AM is better Calcium was low, she is on high dose calcitriol replacement, mg is normal Dec 23 Patient seen examined, no acute overnight issues, some nausea, NG tube draining well has low mg and calcium, being replaced X ray shows not much improvement in SBO, plan for mag citrate by Surgery, will see how she does. Dec 24 patient seen examined, no acute overnight issues, has low grade temp, but no obvious source plan to check CXR and X ray abdomen today, check procalcitonin and ua patient now has some improved output in the stoma, with some gas, calcium level is 6.0, replace IV, mg 1.7, replace. Dec 25 patient seen examined, tired and did not talk much was anxious overnight needing ativan, which helped She is moving bowels, patient X ray shows improving sbo plan to give diet via NG tube for now as per surgery, Replace IV calcium fever resolved, procalcitonin neg, ua neg, cxr neg, no e/o infection, monitor Oct 08 Patient seen examined, doing well, SBO improving, pt wanting oral trials Plan to d/c NG tube today and start on liquid diet to see how she progresses, patient aware that she may need Placement of NG tube again if she fails this. Resume oral calcium supplements. Patient otherwise denies any other complaints Tico still low, on IV tico as pt still has intermittent spasms. oct 09 patient seen examined, no acute overnight issues pt tolerating po diet well, on clear liquids, likeliy to be advanced to full liquid now. tico low, replace IV and increase oral replacement to 1000mg tid, repalce mg oral and IV plan for d/c home wihen cleared by surgery Oct 10 patient seen examined, pt had episodes of nausea overnight X ray abdomen shwos recurrence of SBO NG tube was attempted but was not possible, Patient allergic to reglan, started on erythromycin for prokientic effect this AM x ray better, patient no longer has nausea NPO status again, continue with erythromycin, start on linzezz 145 mcg dialy , patients reports this helps with he bowels replace mg and calcium IV Oct 11 Had some flatus from ostomy this afternoon. Up ambulating the halls. Starting to have an appetite and feeling hungry, no nausea. Started on erythromycin and Linzess, also receiving milk of magnesia. Still requiring electrolyte replacement. October 12 Had no further flatus yesterday. Dr. Pulliam as ordered TPN to start. Received milk of magnesia and bisacodyl per ostomy. At the time of my exam, starting to develop bowel sounds. Continues on erythromycin October 13 Was started on small amounts of clear fluids on an hourly basis today. Has tolerated that well. Passing stool and ostomy. Notices continued bowel sounds.correction from previously, and Linzess has been held for the past several days. Needed repeated calcium infusion today. Hopefully we'll be able to start by mouth meds tomorrow. Oct 14 Continues to tolerate clear fluids. Spirits are good because she is tolerating oral intake and continues to have flatus and stool via her ostomy. No nausea or vomiting. No abdominal pain. Bunny 2 Continues to tolerate diet, up to full liquids. Transitioned over to oral prescriptions today. Has continued to ambulate in the cain. TPN is being weaned to off overnight. Suspect she should be able to go home soon, possibly tomorrow. Back on her usual motility agents. - Constitutional Vitals: Vital Signs Temp Pulse Resp BP Pulse Ox 98.4 F 75 16 154/83 92 10/15/17 15:26 10/15/17 07:51 10/15/17 15:26 10/15/17 15:26 10/15/17 15:26 Period Temp Pulse Resp BP Sys/Archuleta Pulse Ox Last 24 Hr 97.2 F-98.5 F 69-82 16-16 124-159/82-90 91-97 Intake and Output 10/15/17 10/15/17 10/15/17 05:59 13:59 21:59 Intake Total 220 / 220 940 / 940 480 / 480 Output Total 775 / 775 1440 / 1440 Balance 220 / 220 165 / 165 -960 / -960 Weight 221 lb 4.8 oz Patient Weight 10/16/17 05:59 Weight 221 lb 4.8 oz Intake & Output: Intake & Output 10/15/17 10/15/17 10/15/17 05:59 13:59 21:59 Intake Total 220 / 220 940 / 940 480 / 480 Output Total 775 / 775 1440 / 1440 Balance 220 / 220 165 / 165 -960 / -960 Weight 221 lb 4.8 oz Intake: IV 100 / 100 100 / 100 Oral 120 / 120 840 / 840 480 / 480 Output: Void Amount 650 / 650 1350 / 1350 Stool 125 / 125 90 / 90 Other: Meal Lunch Dinner Percent of Meal Consumed 100% 100% Feeding Ability Independent Independent # Voids 1 Exam: General: In bed, no acute distress Chest: Clear Cardiovascular: Regular, no murmur Abdomen: Soft, active bowel sounds, brownish liquid stool in ostomy Neuro: Alert, oriented, nonfocal, mood is a bit down, was hoping to be able to go home today Medical - PN: Obj Da - Labs CBC & Chem 7: 10/15/17 04:50 10/15/17 04:50 Labs: Abnormal Lab Results 10/15/17 10/15/17 10/14/17 04:50 04:50 04:00 RBC 3.89 L Hgb 11.5 L Hct 34.7 L MPV 7.3 L Page # (Auto) 1.0 H Potassium 5.9 H* Creatinine 0.5 L Glucose 175 H 449 H Calcium 7.3 L 6.1 L Magnesium 1.4 L Lactate Dehydrogenase 259 H 261 H Total Protein 5.4 L Albumin 3.1 L Triglycerides 621 H 425 H 10/13/17 04:00 RBC Hgb Hct MPV Page # (Auto) Potassium Creatinine Glucose 177 H Calcium 6.0 L* Magnesium 3.0 H Lactate Dehydrogenase 275 H Total Protein Albumin 3.1 L Triglycerides 420 H Meds: Medications Albuterol Sulfate (Ventolin) 2.5 mg NEB Q2HP PRN PRN Reason: Shortness Of Breath Calcitriol (Rocaltrol) 0.5 mcg PT TID [facility] Last Admin: 10/15/17 15:16 Dose: 0.5 mcg Calcium Carbonate/Glycine (Calcium Carbonate) 1,000 mg PO TID [facility] Last Admin: 10/15/17 15:16 Dose: 1,000 mg Dextrose (Dextrose 50%) 50 ml IV UD PRN PRN Reason: Hypoglycemia Diagnostic Test (Pha) (Accu-Chek) 1 each FS Q6H [facility] Last Admin: 10/15/17 18:17 Dose: 1 each Famotidine (Pepcid) 20 mg IV Q12 [facility] Last Admin: 10/15/17 09:04 Dose: 20 mg Heparin Sodium (Porcine) (Heparin) 5,000 unit SQ Q12 [facility] Last Admin: 10/15/17 09:05 Dose: 5,000 unit Heparin Sodium (Porcine) (Heparin Flush) 2 ml IV Q12 [facility] Last Admin: 10/15/17 09:06 Dose: 2 ml Hydromorphone HCl (Dilaudid) 0.5 mg IV Q2HP PRN PRN Reason: PAIN LEVEL > 6 Last Admin: 10/14/17 07:48 Dose: 0.5 mg Fat Emulsion Intravenous (Intralipid 20%) 250 mls @ 25 mls/hr IV [id number] [facility] Last Admin: 10/14/17 16:26 Dose: 25 mls/hr Acetaminophen (Ofirmev) 1,000 mg in 100 mls @ 200 mls/hr IV Q6HP PRN PRN Reason: PAIN/FEVER > 101 Last Admin: 10/15/17 14:06 Dose: 200 mls/hr Ibuprofen (Motrin) 400 mg PO Q8HP PRN PRN Reason: Pain Last Admin: 10/15/17 18:25 Dose: 400 mg Insulin Human Lispro (Humalog) 0 unit SQ Q6 [facility] PRN Reason: Protocol Last Admin: 10/15/17 18:19 Dose: 6 unit Levothyroxine Sodium (Synthroid) 250 mcg PO [facility] Last Admin: 10/15/17 10:07 Dose: Not Given Lorazepam (Ativan) 0.5 mg IV Q6HP PRN PRN Reason: ANXIETY/SEDATION Last Admin: 10/15/17 15:16 Dose: 0.5 mg Magnesium Oxide (Magnesium Oxide) 400 mg PO TID [facility] Last Admin: 10/15/17 15:16 Dose: 400 mg Multivitamins (Thera-Plus) 5 ml PO DAILY [facility] Last Admin: 10/15/17 09:05 Dose: 5 ml Naloxone HCl (Narcan) 0.1 mg IV Q2MIN PRN PRN Reason: Opiate Reversal Linaclotide (Linzess () 145mg Cap) 1 dose PO DAILY [facility] Last Admin: 10/15/17 09:06 Dose: 1 dose Ondansetron HCl (Zofran) 4 mg IV Q6HP PRN PRN Reason: Nausea And Vomiting Last Admin: 10/15/17 19:11 Dose: 4 mg Phenol (Chloroseptic [place]) 5 spray SSP Q2HP PRN PRN Reason: Sore Throat Last Admin: 10/08/17 09:50 Dose: 5 spray Polyethylene Glycol (Miralax) 17 gm PO BID [facility] Last Admin: 10/15/17 09:08 Dose: 17 gm Prednisone (Prednisone) 20 mg PO [facility] Sodium Chloride (Saline Flush) 10 ml IV Q12 [facility] Last Admin: 10/15/17 09:06 Dose: 10 ml Medical - PN: A/P - Narrative A/P Narrative: A/P Small bowel obstruction: Recurrence of SBO (vs. dysmotility) after removal of NG tube. Now with return of bowel function. Tolerating full liquids and oral meds. Question as to whether second bout of n/v/abd sx was motility vs PSBO related. Improving. Soares on Linzess. Erythro stopped. Plan: Continue to monitor. Wean TPN. Fever: resolved, no /o infection. Hypocalcemia: replaced IV again on Sat and Saturday; now back on oral calcitriol and calcium Hyperkalemia reported on Sat morning labs. Suspect this was lab error as was normal on redraw Hypomagnesemia: replace IV try to keep mg > 2.0, start on mg oxide when able. Myasthenia gravis/ Sarcoidosis: On steroids prednisone 20mg qd, changed to IV solumedrol, but back to PO on Sat. High risk of osteoporosis, pt also needs PCP prophylaxis at this dose if going to be fdc, will discuss if PCP has reviewed this with her . Morbid Obesity: PCP to follow Tachycardia, secondary to anxiety/ GI issues, much better now. (has been worked up in the past, and her HR improves with improvement in GI symptoms,: HR stable presently, TSH low but T3 and T4 normal. Hypothyroidism : low TSH, normal t3, t4, resume dose once able to tolerate po. Osteoarthritis: Prn IV tylenol. Hep sq for DVT prophylaxis Full code. Medical - PN: Qual - VTE Deep Vein Thrombosis/Pulmonary Embolism Present on Admission: No
[2017-10-16] MEDS: INSULIN LISPRO 1 UNIT/0.01 ML UNIT SQ SCH ×4 (00:09→17:57)
[2017-10-16] MEDS: ONDANSETRON 4 MG/2 ML VIAL IV PRN ×2 (01:28→09:20)
[2017-10-16] MEDS: LORazepam 2 MG/ML VIAL IV PRN (04:43)
[2017-10-16] MEDS ORDERED: PROMETHAZINE 25 MG/ML VIAL IV ONE (05:07)
[2017-10-16] MEDS ORDERED: PROMETHAZINE 25 MG/ML VIAL ONE (05:22)
[2017-10-16] MEDS: LEVOTHYROXINE 125 MCG TABLET PO SCH (06:57)
--- NOTE | 2017-10-16 07:35 | XRay Report ---
CLINICAL INFORMATION: Abdominal pain and increased nausea and vomiting. History of distal small bowel obstruction COMPARISON: Multiple plain films dating back to 10/03/2017 with the most recent plain film 10/12/2017. FINDINGS: The stomach duodenum and multiple loops of proximal small bowel are moderately dilated and demonstrate air-fluid levels in the upright film. Distal small bowel and colon are completely decompressed. Findings are compatible with recurrent high-grade distal jejunal obstruction. No free air, soft tissue mass or pathologic calcification. IMPRESSION: High-grade recurrent distal small bowel obstruction Interpreted and Authenticated by: All Lundberg 10/16/17
[2017-10-16] MEDS ORDERED: predniSONE 20 MG TABLET PO SCH (08:00)
[2017-10-16 08:24] LABS: ALT/SGPT 101 U/l (0-40); Albumin 4.1 gm/dL (3.2-5.2); Albumin/Globulin Ratio 1.2 (1.0-2.3); Alkaline Phosphatase 89 U/L (39-117); Bilirubin,Direct < 0.2 mg/dL (0.0-0.3); Blood Urea Nitrogen 34 mg/dl (6-20); Gamma Glutamyl Transpeptidase 54 U/L (5-36); Uric Acid 4.9 mg/dL (2.5-8.0)
[2017-10-16] MEDS ORDERED: PROCHLORPERAZINE 10 MG/2 ML VIAL IV PRN (09:42)
[2017-10-16] MEDS ORDERED: PROMETHAZINE 25 MG/ML VIAL IV PRN (09:42)
[2017-10-16] MEDS ORDERED: 0.9 % SODIUM CHLORIDE 1,000 ML IV SCH (09:45)
--- NOTE | 2017-10-16 09:46 | Internal Med Progress Note ---
Medical - PN: Subj Patient information: Note initiated : 10/16/17 at 9:43 am Service Date, if different from initiated Date: [] Patient: Dayanna Stephens 56 y/o F admitted on 10/03/17 for Abd Pain/ Constipation Post Ostomy/Small Bowel Obst. Chief Complaint: follow-up bowel obstruction/motility disorder Interval history: Ms. Stephens is a 56 year old Female with h/o volvulus of the sigmoid colon, s/ p recent surgery by Dr Currie and was being closely followed in the outpatient clinic, presents today to the ER because of pain in the abdomen x 3 days, pain is sharp in the mid abdomen, non radiating, no aggravating relieving factors, noted that it was progressively getting worse, with some distention. She also had some episodes of sweating and dizziness, she therefore presented to the ER for further evaluation. IN the ER The abdomen x ray/ CT scan showed small bowel obstruction. Patients labs unremarkable, patient has h/o chr hypocalcemia, myasthenia gravis, severe anxiety and depression, osteoarthritis, hypothyroidism, autoimmune polyglandular syndrome, sarcoidosis. She will be admitted to medical floor, Gen Surgery consulting for SBO. Radiology trying to place NG tube, under fluoroscopy. The patient notes she has chr arthritis for which she takes some pain mes She also had some pain in the hypogastric regin, sharp shooting, which was told to in the past as nerve pain, The patient will be admitted to tele for further monitoring and management. Dec 22 Patient seen examined, doing well, some nausea, and her chr pain issues, not no new concerns reported she has NG tube with good drainage, X ray this AM is better Calcium was low, she is on high dose calcitriol replacement, mg is normal Dec 23 Patient seen examined, no acute overnight issues, some nausea, NG tube draining well has low mg and calcium, being replaced X ray shows not much improvement in SBO, plan for mag citrate by Surgery, will see how she does. Dec 24 patient seen examined, no acute overnight issues, has low grade temp, but no obvious source plan to check CXR and X ray abdomen today, check procalcitonin and ua patient now has some improved output in the stoma, with some gas, calcium level is 6.0, replace IV, mg 1.7, replace. Dec 25 patient seen examined, tired and did not talk much was anxious overnight needing ativan, which helped She is moving bowels, patient X ray shows improving sbo plan to give diet via NG tube for now as per surgery, Replace IV calcium fever resolved, procalcitonin neg, ua neg, cxr neg, no e/o infection, monitor Oct 08 Patient seen examined, doing well, SBO improving, pt wanting oral trials Plan to d/c NG tube today and start on liquid diet to see how she progresses, patient aware that she may need Placement of NG tube again if she fails this. Resume oral calcium supplements. Patient otherwise denies any other complaints Tico still low, on IV tico as pt still has intermittent spasms. oct 09 patient seen examined, no acute overnight issues pt tolerating po diet well, on clear liquids, likeliy to be advanced to full liquid now. tico low, replace IV and increase oral replacement to 1000mg tid, repalce mg oral and IV plan for d/c home wihen cleared by surgery Oct 10 patient seen examined, pt had episodes of nausea overnight X ray abdomen shwos recurrence of SBO NG tube was attempted but was not possible, Patient allergic to reglan, started on erythromycin for prokientic effect this AM x ray better, patient no longer has nausea NPO status again, continue with erythromycin, start on linzezz 145 mcg dialy , patients reports this helps with he bowels replace mg and calcium IV Oct 11 Had some flatus from ostomy this afternoon. Up ambulating the halls. Starting to have an appetite and feeling hungry, no nausea. Started on erythromycin and Linzess, also receiving milk of magnesia. Still requiring electrolyte replacement. October 12 Had no further flatus yesterday. Dr. Pulliam as ordered TPN to start. Received milk of magnesia and bisacodyl per ostomy. At the time of my exam, starting to develop bowel sounds. Continues on erythromycin October 13 Was started on small amounts of clear fluids on an hourly basis today. Has tolerated that well. Passing stool and ostomy. Notices continued bowel sounds.correction from previously, and Linzess has been held for the past several days. Needed repeated calcium infusion today. Hopefully we'll be able to start by mouth meds tomorrow. Oct 14 Continues to tolerate clear fluids. Spirits are good because she is tolerating oral intake and continues to have flatus and stool via her ostomy. No nausea or vomiting. No abdominal pain. Oct 2 Continues to tolerate diet, up to full liquids. Transitioned over to oral prescriptions today. Has continued to ambulate in the cain. TPN is being weaned to off overnight. Suspect she should be able to go home soon, possibly tomorrow. Back on her usual motility agents. Oct 3 Was doing well up until last evening, when took ibuprofen for pain. Developed nausea and vomiting. Has been nauseated all night. Some epigastric pain, otherwise no significant abdominal pain. Having loose ostomy output, C. difficile was sent which was negative. Still having ostomy output and flatus. Still feeling nauseated this morning. Zofran not helping. Received one dose of Phenergan which did help. We'll plan to start fluids, stop nonsteroidals, and Compazine or Phenergan for nausea today. We'll need to continue to monitor. TPN is now been weaned to off overnight. - Constitutional Vitals: Vital Signs Temp Pulse Resp BP Pulse Ox 96.0 F L 134 H 12 132/89 94 10/16/17 07:41 10/16/17 07:50 10/16/17 07:50 10/16/17 07:41 10/16/17 07:50 Period Temp Pulse Resp BP Sys/Archuleta Pulse Ox Last 24 Hr 96.0 F-98.4 F 116-134 12-24 90-154/55-89 91-95 Intake and Output 10/15/17 10/16/17 10/16/17 21:59 05:59 13:59 Intake Total 820 / 820 0 / 0 Output Total 1740 / 1740 570 / 570 90 / 90 Balance -920 / -920 -570 / -570 -90 / -90 Weight 220 lb 9.6 oz Intake & Output: Intake & Output 10/15/17 10/16/17 10/16/17 21:59 05:59 13:59 Intake Total 820 / 820 0 / 0 Output Total 1740 / 1740 570 / 570 90 / 90 Balance -920 / -920 -570 / -570 -90 / -90 Weight 220 lb 9.6 oz Intake: IV 100 / 100 Oral 720 / 720 0 / 0 Output: Void Amount 1550 / 1550 Stool 190 / 190 550 / 550 90 / 90 Emesis 20 / 20 Other: Meal Dinner Percent of Meal Consumed 100% Feeding Ability Independent # Voids 1 Exam: General: Uncomfortable Chest: Clear Cardiovascular: Regular Abdomen: Active bowel sounds in all 4 quadrants. Brownish liquid ostomy output. Mild epigastric tenderness. No guarding or rebound. Neuro: Alert, oriented, mood is down. Medical - PN: Obj Da - Labs CBC & Chem 7: 10/15/17 04:50 10/16/17 06:34 Labs: Abnormal Lab Results 10/16/17 10/15/17 10/15/17 06:34 04:50 04:50 RBC 3.89 L Hgb 11.5 L Hct 34.7 L MPV 7.3 L [place] # (Auto) 1.0 H Potassium Chloride 90 L Anion Gap 24.0 H BUN 34 H Creatinine 0.5 L Glucose 190 H 175 H Calcium 7.3 L Magnesium 1.4 L GGT 54 H AST 65 H ALT 101 H Lactate Dehydrogenase 385 H 259 H Total Protein Albumin Triglycerides 802 H 621 H 10/14/17 04:00 RBC Hgb Hct MPV [place] # (Auto) Potassium 5.9 H* Chloride Anion Gap BUN Creatinine Glucose 449 H Calcium 6.1 L Magnesium GGT AST ALT Lactate Dehydrogenase 261 H Total Protein 5.4 L Albumin 3.1 L Triglycerides 425 H Meds: Medications Albuterol Sulfate (Ventolin) 2.5 mg NEB Q2HP PRN PRN Reason: Shortness Of Breath Calcitriol (Rocaltrol) 0.5 mcg PT TID [facility] Last Admin: 10/15/17 22:43 Dose: Not Given Calcium Carbonate/Glycine (Calcium Carbonate) 1,000 mg PO TID [facility] Last Admin: 10/15/17 22:38 Dose: Not Given Dextrose (Dextrose 50%) 50 ml IV UD PRN PRN Reason: Hypoglycemia Diagnostic Test (Pha) (Accu-Chek) 1 each FS Q6H [facility] Last Admin: 10/16/17 06:57 Dose: 1 each Famotidine (Pepcid) 20 mg IV Q12 [facility] Last Admin: 10/15/17 22:39 Dose: 20 mg Heparin Sodium (Porcine) (Heparin) 5,000 unit SQ Q12 [facility] Last Admin: 10/15/17 22:38 Dose: 5,000 unit Heparin Sodium (Porcine) (Heparin Flush) 2 ml IV Q12 [facility] Last Admin: 10/15/17 22:39 Dose: 2 ml Hydromorphone HCl (Dilaudid) 0.5 mg IV Q2HP PRN PRN Reason: PAIN LEVEL > 6 Last Admin: 10/14/17 07:48 Dose: 0.5 mg Acetaminophen (Ofirmev) 1,000 mg in 100 mls @ 200 mls/hr IV Q6HP PRN PRN Reason: PAIN/FEVER > 101 Last Admin: 10/15/17 20:32 Dose: 200 mls/hr Ibuprofen (Motrin) 400 mg PO Q8HP PRN PRN Reason: Pain Last Admin: 10/15/17 18:25 Dose: 400 mg Insulin Human Lispro (Humalog) 0 unit SQ Q6 [facility] PRN Reason: Protocol Last Admin: 10/16/17 07:02 Dose: 2 unit Levothyroxine Sodium (Synthroid) 250 mcg PO QAMAC [facility] Last Admin: 10/16/17 06:57 Dose: 250 mcg Lorazepam (Ativan) 0.5 mg IV Q6HP PRN PRN Reason: ANXIETY/SEDATION Last Admin: 10/16/17 04:43 Dose: 0.5 mg Magnesium Oxide (Magnesium Oxide) 400 mg PO TID [facility] Last Admin: 10/15/17 22:39 Dose: Not Given Multivitamins (Thera-Plus) 5 ml PO DAILY [facility] Last Admin: 10/15/17 09:05 Dose: 5 ml Naloxone HCl (Narcan) 0.1 mg IV Q2MIN PRN PRN Reason: Opiate Reversal Linaclotide (Linzess () 145mg Cap) 1 dose PO DAILY [facility] Last Admin: 10/15/17 09:06 Dose: 1 dose Ondansetron HCl (Zofran) 4 mg IV Q6HP PRN PRN Reason: Nausea And Vomiting Last Admin: 10/16/17 09:20 Dose: 4 mg Phenol (Chloroseptic [place]) 5 spray SSP Q2HP PRN PRN Reason: Sore Throat Last Admin: 10/08/17 09:50 Dose: 5 spray Polyethylene Glycol (Miralax) 17 gm PO BID [facility] Last Admin: 10/15/17 22:39 Dose: Not Given Prednisone (Prednisone) 20 mg PO [facility] Sodium Chloride (Saline Flush) 10 ml IV Q12 [facility] Last Admin: 01/02/18 22:43 Dose: 10 ml Medical - PN: A/P - Narrative A/P Narrative: A/P Small bowel obstruction: Recurrence of SBO (vs. dysmotility) after removal of NG tube. Now with return of bowel function on 10/14 and 10/15. Tolerating full liquids and oral meds. Question as to whether second bout of n/v/abd sx was motility vs PSBO related. Back on on Linzess. Erythro stopped. On Sat, 10/16, nausea and vomiting. This appears to be related to nonsteroidal dose given yesterday. Still having bowel sounds and ostomy output. Plan: Resume IV fluids, stop nonsteroidals, add Compazine and Phenergan to antiemetic regimen. Continue to monitor. Wean TPN. Fever: resolved, no /o infection. Hypocalcemia: replaced IV again on Sat and Saturday; now back on oral calcitriol and calcium Hyperkalemia reported on Sat morning labs. Suspect this was lab error as was normal on redraw Hypomagnesemia: replace IV try to keep mg > 2.0, start on mg oxide when able. Myasthenia gravis/ Sarcoidosis: On steroids prednisone 20mg qd, changed to IV solumedrol, but back to PO on Sat. High risk of osteoporosis, pt also needs PCP prophylaxis at this dose if going to be care home, will discuss if PCP has reviewed this with her . Morbid Obesity: PCP to follow Tachycardia, secondary to anxiety/ GI issues, much better now. (has been worked up in the past, and her HR improves with improvement in GI symptoms,: HR stable presently, TSH low but T3 and T4 normal. Hypothyroidism : low TSH, normal t3, t4, resume dose once able to tolerate po. Osteoarthritis: Prn IV tylenol. Hep sq for DVT prophylaxis Full code. Medical - PN: Qual - VTE Deep Vein Thrombosis/Pulmonary Embolism Present on Admission: No
[2017-10-16] MEDS: 0.9 % SODIUM CHLORIDE 10 ML SYRINGE IV SCH ×2 (10:35→21:14)
[2017-10-16] MEDS: HEPARIN 5,000 UNIT/ML VIAL SQ SCH ×2 (10:43→20:57)
[2017-10-16] MEDS ORDERED: 0.9 % SODIUM CHLORIDE 500 ML IV ONE ×2 (13:07→17:56)
[2017-10-16] MEDS: FAMOTIDINE/PF 20 MG/2 ML VIAL IV SCH (13:12)
--- NOTE | 2017-10-16 13:29 | General Surgery Progress Note ---
Subjective Patient reports: pain is less, flatus, bowel movement, nausea, vomiting, afebrile Narrative: Note initiated : 10/16/17 at 1:25 pm Service Date, if different from initiated Date: [] Patient: Dayanna Stephens 56 y/o F admitted on 10/03/17 for Abd Pain/ Constipation Post Ostomy/Small Bowel Obst. Chief Complaint: [Patient is doing about the same. She had onset of nausea with vomiting earlier this morning which improved somewhat after IV Phenergan. Her output via her stoma has decreased however she had 550 cc output yesterday and her p.o. intake has been minimal. Her abdominal x-rays shows the same dilated small bowel and colon and is more compatible with her primary intestinal pseudoobstruction rather than obstruction. She has had some tachycardia which is associated with retching and nausea but which decreases to the 80/min range when she is at rest. I discussed her with Dr. Tucker who is going to try some physostigmine to try to improve her intestinal pseudoobstruction. I will leave treatment of her tachycardia up to him. She is receiving Linzess and MiraLAX to try to stimulate intestinal emptying. She may need to have a stronger laxative but I will wait to see what her other medications achieved before adding new medicines. She has mild depression but this is more situational due to her illness] Objective Temp Pulse Resp BP Pulse Ox 96.0 F L 134 H 12 132/89 94 10/16/17 07:41 10/16/17 07:50 10/16/17 07:50 10/16/17 07:41 10/16/17 07:50 - Additional Data Intake & Output - Last 24 hours: Intake & Output 10/14/17 10/15/17 10/16/17 10/17/17 05:59 05:59 05:59 05:59 Intake Total 2320 / 2320 2506 / 2506 1760 / 1760 Output Total 1025 / 1025 5035 / 5035 3085 / 3085 90 / 90 Balance 1295 / 1295 -2529 / -2529 -1325 / -1325 -90 / -90 Weight 221 lb 14.4 oz 221 lb 4.8 oz 220 lb 9.6 oz - General physical appearance moderate distress, moderate pain, chronically ill - Eyes PERRL - ENT no congestion - Neck no masses, no venous distension - Respiratory normal expansion, normal respiratory effort, clear to auscultation - Cardiovascular Cardiovascular exam: Present: RRR, +S1, +S2, tachycardia. Absent: gallop - Abdomen tender, bowel sounds, distended (Abdomen is obese and distended but she has good active bowel sounds. Her stoma looks good and is functioning appropriately.) - Integumentary no rash, no growths, no abnormal pigmentation, other (She has some ecchymotic lesions that are related to heparin injection) - Neurologic normal coordination, normal sensation - Musculoskeletal normal gait, normal posture - Psychiatric oriented to time, oriented to person, oriented to place, speech is normal, memory intact - Labs 10/15/17 04:50 10/16/17 06:34 Diabetes panel 10/16/17 Range/Units 06:34 Sodium 136 (133-145) mmol/L Potassium 4.9 (3.3-5.1) mmol/L Chloride 90 L (96-108) mmol/L Carbon Dioxide 22 (22-30) mmol/L BUN 34 H (6-20) mg/dl Creatinine 1.0 (0.6-1.1) mg/dl Glucose 190 H (70-105) mg/dL Calcium 9.0 (8.6-10.4) mg/dl AST 65 H (0-37) U/l ALT 101 H (0-40) U/l Alkaline Phosphatase 89 (39-117) U/L Total Protein 7.6 (5.9-8.4) gm/dL Albumin 4.1 (3.2-5.2) gm/dL Triglycerides 802 H (<150) mg/dl Calcium panel 10/16/17 Range/Units 06:34 Calcium 9.0 (8.6-10.4) mg/dl Phosphorus 4.3 (2.7-4.5) mg/dL Albumin 4.1 (3.2-5.2) gm/dL Pituitary panel 10/16/17 Range/Units 06:34 Sodium 136 (133-145) mmol/L Potassium 4.9 (3.3-5.1) mmol/L Chloride 90 L (96-108) mmol/L Carbon Dioxide 22 (22-30) mmol/L BUN 34 H (6-20) mg/dl Creatinine 1.0 (0.6-1.1) mg/dl Glucose 190 H (70-105) mg/dL Calcium 9.0 (8.6-10.4) mg/dl Adrenal panel 10/16/17 Range/Units 06:34 Sodium 136 (133-145) mmol/L Potassium 4.9 (3.3-5.1) mmol/L Chloride 90 L (96-108) mmol/L Carbon Dioxide 22 (22-30) mmol/L BUN 34 H (6-20) mg/dl Creatinine 1.0 (0.6-1.1) mg/dl Glucose 190 H (70-105) mg/dL Calcium 9.0 (8.6-10.4) mg/dl Total Bilirubin 0.2 (0.0-1.0) mg/dL AST 65 H (0-37) U/l ALT 101 H (0-40) U/l Alkaline Phosphatase 89 (39-117) U/L Total Protein 7.6 (5.9-8.4) gm/dL Albumin 4.1 (3.2-5.2) gm/dL Assessment and Plan (1) Chronic intestinal pseudo-obstruction Status: Acute Assessment and plan: Continue present medications Delay increasing her diet for now Discussed the potential for addition of cisapride as a special order from [facility] if her present medications are not effective Current Visit: Yes (2) Hypothyroidism Status: Acute Current Visit: No (3) Myasthenia gravis Status: Acute Current Visit: No (4) Supraventricular tachycardia Status: Acute Assessment and plan: Discussed with Dr. Tucker who will address this after he has started her on physostigmine Current Visit: No - Time Spent With Patient Total time spent is greater than 50% in coordination of care (as documented) at patient's floor/unit and/or counseling patient:
[2017-10-16] MEDS: MAGNESIUM OXIDE 400 MG TABLET PO SCH ×4 (13:43→21:14)
[2017-10-16] MEDS: CALCIUM CARBONATE 1,250 MG/5 ML ORAL.SUSP PO SCH ×4 (13:43→21:13)
[2017-10-16] MEDS: MULTIVITAMINS,THERAPEUTIC 1 ML ORAL.SOL PO SCH (13:44)
[2017-10-16] MEDS: CALCITRIOL 0.25 MCG CAPSULE PT SCH ×4 (13:45→21:16)
[2017-10-16] MEDS: POLYETHYLENE GLYCOL 3350 17 GM PACKET PO SCH ×2 (13:45→21:14)
[2017-10-16] MEDS: LINACLOTIDE 145 MG PO SCH (13:45)
--- NOTE | 2017-10-16 13:45 | Event Note ---
The patient has been in the hospital for over 2 weeks, she has h/o myasthenia gravis, the patient has pseudoobstruction which is not responding well to conventional treatments, this has been an ongoing issue for her. After reviewing some literature, there are some case reports which noted the presentation of pseudoobstruction in patients with myasthenia gravis. I reviewed this with Az and the patient. I discussed a trial of low dose pyridostigmine to see if it would help the patient in any way. The patient and her (who was at bedside), have been informed about the potential complication of the drug, they are fully aware that this is not a standard of care and this is just a trial to see if her pseudoobstruction is related to myasthenia gravis. The patient also admits to having intermittent diplopia/ ophthalmoplegia none present at this time. Will see if this helps with same also. The patient denies any dysphagia at this time, however she does have significant tachycardia, which is intermittent, and so far has been attributed to her ANxiety and GI issues, its plausible this is related to her autonomic dysfunction seen in myasthenia. Will monitor on tele for now for closer observation. Will consider xfer to higher center if any decline in status.
[2017-10-16] MEDS ORDERED: PYRIDOSTIGMINE 60 MG TABLET PO SCH ×3 (14:00)
[2017-10-16] MEDS ORDERED: ALBUTEROL SULFATE 2.5 MG/3 ML NEBULIZER NEB PRN (14:16)
[2017-10-16] MEDS ORDERED: NALOXONE HCL 0.4 MG/ML VIAL IV PRN (14:16)
[2017-10-16] MEDS ORDERED: ONDANSETRON 4 MG/2 ML VIAL IV PRN (14:16)
[2017-10-16] MEDS ORDERED: ACETAMINOPHEN 1,000 MG/100 ML BOTTLE IV PRN (14:16)
[2017-10-16] MEDS ORDERED: DEXTROSE 50% 50 ML VIAL IV PRN (14:16)
[2017-10-16] MEDS ORDERED: LORazepam 2 MG/ML VIAL IV PRN (14:16)
[2017-10-16] MEDS ORDERED: PHENOL/SODIUM PHENOLATE 5 SPRAY BOTTLE 180ML SSP PRN (14:16)
[2017-10-16] MEDS: 0.9 % SODIUM CHLORIDE 1,000 ML IV SCH ×2 (14:27→22:49)
[2017-10-16] MEDS: PROCHLORPERAZINE 10 MG/2 ML VIAL IV PRN (15:00)
[2017-10-16] MEDS: PROMETHAZINE 25 MG/ML VIAL IV PRN ×2 (15:07→20:57)
--- NOTE | 2017-10-16 18:14 | XRay Report ---
CLINICAL INFORMATION: Fever COMPARISON: 10/06/2017 FINDINGS: Heart size, mediastinum and pulmonary vessels are normal. Left PICC line tip in stable position - overlying the SVC right atrial junction. Lungs are clear. No effusions. NG tube has been removed from the gastroesophageal region IMPRESSION: Negative Interpreted and Authenticated by: All Lundberg 10/16/17
[2017-10-16 19:11] LABS: Basophils # (Auto) 0 K/mcL (0.0-0.3); Basophils % (Auto) 0.1 % (0.0-2.0); Eosinophils # (Auto) 0.2 K/mcL (0.0-0.7); Eosinophils % (Auto) 0.8 % (0.0-7.0); Granulocytes % (Auto) 80.9 % (38.0-78.0); Lymphocytes # (Auto) 2.3 K/mcL (1.5-4.8); Lymphocytes % (Auto) 9.4 % (15.5-49.0); Mean Cell Volume 89.1 fL (80.0-100.0); Mean Corpuscular HGB Conc 32.6 g/dL (31.0-36.0); Mean Corpuscular Hemoglobin 29.1 pg (26.0-34.0); Monocytes # (Auto) 2.1 K/mcL (0.1-0.9); Monocytes % (Auto) 8.8 % (1.0-12.0); Platelet Count 705 K/mcL (140-440); RBC 5.13 M/mcL (4.00-5.20); Red Cell Distribution Width 14.6 % (11.5-14.5)
[2017-10-16] MEDS ORDERED: 0.9 % SODIUM CHLORIDE 1,000 ML IV ONE (19:15)
[2017-10-16 19:44] LABS: ALT/SGPT 83 U/l (0-40); Albumin 4.1 gm/dL (3.2-5.2); Albumin/Globulin Ratio 1.1 (1.0-2.3); Alkaline Phosphatase 95 U/L (39-117); Bilirubin,Direct < 0.2 mg/dL (0.0-0.3); Blood Urea Nitrogen 36 mg/dl (6-20); Gamma Glutamyl Transpeptidase 69 U/L (5-36); Uric Acid 6.3 mg/dL (2.5-8.0)
[2017-10-16] MEDS ORDERED: FAMOTIDINE/PF 20 MG/2 ML VIAL IV SCH (21:00)
[2017-10-16] MEDS ORDERED: VANCOMYCIN 1,500 MG in 0.9 % SODIUM CHLORIDE 500 ML IV ONE (21:33)
[2017-10-16] MEDS ORDERED: VANCOMYCIN PER PHARMACY IV SCH (21:34)
[2017-10-16] MEDS: HYDROmorphone 2 MG/ML SYRINGE IV PRN (22:32)
[2017-10-16] MEDS: PIPERACILLIN SODIUM/TAZOBACTAM 3.375 GM in DEXTROSE 5% IN WATER 50 ML IV SCH (22:54)
[2017-10-17] MEDS: INSULIN LISPRO 1 UNIT/0.01 ML UNIT SQ SCH ×4 (00:21→20:57)
[2017-10-17] MEDS: PROCHLORPERAZINE 10 MG/2 ML VIAL IV PRN ×3 (02:05→13:58)
[2017-10-17 04:30] LABS: Appearance,Urine HAZY; Bacteria,Urine FEW /hpf (0); Bilirubin,Urine NEG (NEG); Color,Urine YELLOW; Glucose,Urine (UA) NEGATIVE (NEG); Leukocyte Esterase,Urine NEG /uL (NEG); Mucus,Urine MANY /hpf (0); Nitrate,Urine NEG (NEG); Protein,Urine NEG (NEG); Specific Gravity,Urine 1.027 (1.000-1.035); Urine Amorphous Crystals FEW /hpf (0); Urine Blood NEG mg/dL (<0.03); Urine Hyaline Cast 25 /lpf (0-2); Urine RBC 1 /hpf (0-1); Urine Squamous Epithelial Cell 1 /hpf (0-4); Urine Transitional Epi Cells < 1 /hpf (0-2); Urine WBC 7 /hpf (0-4); Urobilinogen,Urine NEG (NEG)
[2017-10-17 04:35] LABS: Basophils # (Auto) 0 K/mcL (0.0-0.3); Basophils % (Auto) 0 % (0.0-2.0); Eosinophils # (Auto) 0 K/mcL (0.0-0.7); Eosinophils % (Auto) 0.1 % (0.0-7.0); Granulocytes % (Auto) 87.2 % (38.0-78.0); Lymphocytes # (Auto) 1.5 K/mcL (1.5-4.8); Lymphocytes % (Auto) 6.5 % (15.5-49.0); Mean Cell Volume 88.9 fL (80.0-100.0); Mean Corpuscular HGB Conc 32.5 g/dL (31.0-36.0); Mean Corpuscular Hemoglobin 28.9 pg (26.0-34.0); Monocytes # (Auto) 1.4 K/mcL (0.1-0.9); Monocytes % (Auto) 6.2 % (1.0-12.0); Platelet Count 586 K/mcL (140-440); RBC 4.77 M/mcL (4.00-5.20); Red Cell Distribution Width 14.2 % (11.5-14.5)
[2017-10-17 04:48] LABS: ALT/SGPT 85 U/l (0-40); Albumin 3.7 gm/dL (3.2-5.2); Albumin/Globulin Ratio 1.1 (1.0-2.3); Alkaline Phosphatase 91 U/L (39-117); Bilirubin,Direct < 0.2 mg/dL (0.0-0.3); Blood Urea Nitrogen 33 mg/dl (6-20); Gamma Glutamyl Transpeptidase 63 U/L (5-36); Magnesium 1.9 mg/dL (1.6-2.5); Uric Acid 4.9 mg/dL (2.5-8.0)
[2017-10-17] MEDS ORDERED: 0.9 % SODIUM CHLORIDE 1,000 ML IV ONE ×3 (04:57→10:06)
[2017-10-17] MEDS: PROMETHAZINE 25 MG/ML VIAL IV PRN ×2 (05:02→12:26)
[2017-10-17] MEDS: PIPERACILLIN SODIUM/TAZOBACTAM 3.375 GM in DEXTROSE 5% IN WATER 50 ML IV SCH (05:47)
[2017-10-17] MEDS: HYDROmorphone 2 MG/ML SYRINGE IV PRN ×7 (05:50→22:14)
[2017-10-17] MEDS ORDERED: LEVOTHYROXINE 100 MCG VIAL IV SCH (07:30)
[2017-10-17] MEDS: LEVOTHYROXINE 125 MCG TABLET PO SCH ×2 (08:05→08:25)
[2017-10-17] MEDS: predniSONE 20 MG TABLET PO SCH ×2 (08:05→08:25)
[2017-10-17] MEDS: CEFEPIME 2 GM VIAL IV SCH ×3 (08:05→22:12)
[2017-10-17 08:28] LABS: ABG Methemoglobin 0.3 % (0.4-1.5); VBG Base Excess -4.9 (-2.0-2.0); VBG HCO3 19.7 mmol/L (24.0-28.0); VBG Oxygen Saturation 96.1 % (40.0-70.0); VBG PCO2 35.1 mmHg (41.0-51.0); VBG PH 7.37 U (7.32-7.42); VBG PO2 138 mmHg (25-40); VBG Total CO2 20.8 mmol/L (25.0-29.0)
[2017-10-17] MEDS ORDERED: methylPREDNISolone SOD SUCC 40 MG/ML VIAL IV SCH (09:00)
[2017-10-17] MEDS ORDERED: NON FORMULARY MEDICATION 1 DOSE MISCELL PO SCH (09:00)
[2017-10-17] MEDS ORDERED: VANCOMYCIN 1,000 MG in 0.9 % SODIUM CHLORIDE 250 ML IV SCH ×2 (09:00→21:00)
[2017-10-17] MEDS ORDERED: MULTIVITAMINS,THERAPEUTIC 1 ML ORAL.SOL PO SCH (09:00)
[2017-10-17] MEDS: PANTOPRAZOLE 40 MG VIAL IV SCH ×2 (09:20→19:59)
[2017-10-17] MEDS: CALCIUM CARBONATE 1,250 MG/5 ML ORAL.SUSP PO SCH ×2 (09:20→13:59)
[2017-10-17] MEDS: HEPARIN 5,000 UNIT/ML VIAL SQ SCH ×2 (09:20→21:20)
[2017-10-17] MEDS: metroNIDAZOLE 500 MG/100 ML BAG IV SCH ×3 (09:20→22:13)
[2017-10-17] MEDS: POLYETHYLENE GLYCOL 3350 17 GM PACKET PO SCH (09:21)
[2017-10-17] MEDS: CALCITRIOL 0.25 MCG CAPSULE PT SCH ×2 (09:21→14:00)
[2017-10-17] MEDS: MAGNESIUM OXIDE 400 MG TABLET PO SCH ×2 (09:21→14:00)
[2017-10-17] MEDS: 0.9 % SODIUM CHLORIDE 10 ML SYRINGE IV SCH ×2 (09:22→21:21)
--- NOTE | 2017-10-17 12:43 | General Surgery Progress Note ---
Subjective Patient reports: still having pain, no flatus, no bowel movement, nausea, vomiting, afebrile Narrative: Note initiated : 10/17/17 at 12:40 pm Service Date, if different from initiated Date: [] Patient: Dayanna Stephens 56 y/o F admitted on 10/03/17 for Abd Pain/ Constipation Post Ostomy/Small Bowel Obst. Chief Complaint: [Patient has had nausea and vomiting throughout the night. She has had multiple episodes measuring about 1 50 cc plus per episode. She had 3 episodes of vomiting while being examined. She has mid and lower abdominal pain and has been tachycardic intermittently. Her BUN and creatinine have increased probably due to large volume of fluid sequestered in the bowel. CT of the abdomen shows dilation of small bowel down to terminal ileum. The distal aspect of the terminal ileum is decompressed and the colon is decompressed suggesting near complete obstruction. Patient is counseled for exploratory laparotomy which will be done later today. The most likely etiology is acute adhesive disease related to her last surgery.] Objective Temp Pulse Resp BP Pulse Ox 97.2 F 115 H 20 129/95 96 10/17/17 12:00 10/17/17 12:00 10/17/17 12:00 10/17/17 12:00 10/17/17 12:00 - Additional Data Intake & Output - Last 24 hours: Intake & Output 10/15/17 10/16/17 10/17/17 10/18/17 05:59 05:59 05:59 05:59 Intake Total 2506 / 2506 1760 / 1760 5751 / 5751 3820 / 3820 Output Total 5035 / 5035 3085 / 3085 965 / 965 275 / 275 Balance -2529 / -2529 -1325 / -1325 4786 / 4786 3545 / 3545 Weight 221 lb 4.8 oz 220 lb 9.6 oz 229 lb - General physical appearance moderate distress, moderate pain, chronically ill - Eyes PERRL - ENT no congestion - Respiratory normal expansion, normal respiratory effort, clear to auscultation - Cardiovascular Cardiovascular exam: Present: normal rate and rhythm, RRR, +S1, +S2, tachycardia. Absent: JVD - Abdomen tender, distended (And her stoma looks well) - Integumentary no rash, no growths, no abnormal pigmentation - Neurologic normal coordination, normal sensation - Psychiatric oriented to time, oriented to person, oriented to place, speech is normal, memory intact - Labs 10/17/17 03:46 10/17/17 03:45 Diabetes panel 10/16/17 10/17/17 Range/Units 18:10 03:45 Sodium 133 138 (133-145) mmol/L Potassium 4.8 4.4 (3.3-5.1) mmol/L Chloride 91 L 98 (96-108) mmol/L Carbon Dioxide 18 L 17 L (22-30) mmol/L BUN 36 H 33 H (6-20) mg/dl Creatinine 1.2 H 0.9 (0.6-1.1) mg/dl Glucose 186 H 208 H (70-105) mg/dL Calcium 9.0 8.0 L (8.6-10.4) mg/dl AST 36 38 H (0-37) U/l ALT 83 H 85 H (0-40) U/l Alkaline Phosphatase 95 91 (39-117) U/L Total Protein 7.9 7.1 (5.9-8.4) gm/dL Albumin 4.1 3.7 (3.2-5.2) gm/dL Triglycerides 814 H 790 H (<150) mg/dl Calcium panel 10/16/17 10/17/17 Range/Units 18:10 03:45 Calcium 9.0 8.0 L (8.6-10.4) mg/dl Phosphorus 5.0 H 6.2 H* (2.7-4.5) mg/dL Albumin 4.1 3.7 (3.2-5.2) gm/dL Pituitary panel 10/16/17 10/17/17 Range/Units 18:10 03:45 Sodium 133 138 (133-145) mmol/L Potassium 4.8 4.4 (3.3-5.1) mmol/L Chloride 91 L 98 (96-108) mmol/L Carbon Dioxide 18 L 17 L (22-30) mmol/L BUN 36 H 33 H (6-20) mg/dl Creatinine 1.2 H 0.9 (0.6-1.1) mg/dl Glucose 186 H 208 H (70-105) mg/dL Calcium 9.0 8.0 L (8.6-10.4) mg/dl Adrenal panel 10/16/17 10/17/17 Range/Units 18:10 03:45 Sodium 133 138 (133-145) mmol/L Potassium 4.8 4.4 (3.3-5.1) mmol/L Chloride 91 L 98 (96-108) mmol/L Carbon Dioxide 18 L 17 L (22-30) mmol/L BUN 36 H 33 H (6-20) mg/dl Creatinine 1.2 H 0.9 (0.6-1.1) mg/dl Glucose 186 H 208 H (70-105) mg/dL Calcium 9.0 8.0 L (8.6-10.4) mg/dl Total Bilirubin 0.3 0.4 (0.0-1.0) mg/dL AST 36 38 H (0-37) U/l ALT 83 H 85 H (0-40) U/l Alkaline Phosphatase 95 91 (39-117) U/L Total Protein 7.9 7.1 (5.9-8.4) gm/dL Albumin 4.1 3.7 (3.2-5.2) gm/dL Assessment and Plan (1) Chronic intestinal pseudo-obstruction Status: Acute Assessment and plan: patient is counseled for exploratory laparotomy which will be done later this afternoon, Current Visit: Yes (2) Hypothyroidism Status: Acute Current Visit: No (3) Myasthenia gravis Status: Acute Current Visit: No (4) Supraventricular tachycardia Status: Acute Assessment and plan: Discussed with Dr. Tucker who will address this after he has started her on physostigmine Current Visit: No - Time Spent With Patient Total time spent is greater than 50% in coordination of care (as documented) at patient's floor/unit and/or counseling patient:
--- NOTE | 2017-10-17 13:18 | Internal Med Progress Note ---
Medical - PN: Subj Patient information: Note initiated : 10/17/17 at 1:16 pm Service Date, if different from initiated Date: [] Patient: Dayanna Stephens a 56 y/o F admitted on 10/03/17 for Abd Pain/ Constipation Post Ostomy/Small Bowel Obst. Chief Complaint: [] Interval history: Ms. Stephens is a 56 year old Female with h/o volvulus of the sigmoid colon, s/ p recent surgery by Dr Currie and was being closely followed in the outpatient clinic, presents today to the ER because of pain in the abdomen x 3 days, pain is sharp in the mid abdomen, non radiating, no aggravating relieving factors, noted that it was progressively getting worse, with some distention. She also had some episodes of sweating and dizziness, she therefore presented to the ER for further evaluation. IN the ER The abdomen x ray/ CT scan showed small bowel obstruction. Patients labs unremarkable, patient has h/o chr hypocalcemia, myasthenia gravis, severe anxiety and depression, osteoarthritis, hypothyroidism, autoimmune polyglandular syndrome, sarcoidosis. She will be admitted to medical floor, Gen Surgery consulting for SBO. Radiology trying to place NG tube, under fluoroscopy. The patient notes she has chr arthritis for which she takes some pain mes She also had some pain in the hypogastric regin, sharp shooting, which was told to in the past as nerve pain, The patient will be admitted to tele for further monitoring and management. Dec 22 Patient seen examined, doing well, some nausea, and her chr pain issues, not no new concerns reported she has NG tube with good drainage, X ray this AM is better Calcium was low, she is on high dose calcitriol replacement, mg is normal Dec 23 Patient seen examined, no acute overnight issues, some nausea, NG tube draining well has low mg and calcium, being replaced X ray shows not much improvement in SBO, plan for mag citrate by Surgery, will see how she does. Dec 24 patient seen examined, no acute overnight issues, has low grade temp, but no obvious source plan to check CXR and X ray abdomen today, check procalcitonin and ua patient now has some improved output in the stoma, with some gas, calcium level is 6.0, replace IV, mg 1.7, replace. Dec 25 patient seen examined, tired and did not talk much was anxious overnight needing ativan, which helped She is moving bowels, patient X ray shows improving sbo plan to give diet via NG tube for now as per surgery, Replace IV calcium fever resolved, procalcitonin neg, ua neg, cxr neg, no e/o infection, monitor Oct 08 Patient seen examined, doing well, SBO improving, pt wanting oral trials Plan to d/c NG tube today and start on liquid diet to see how she progresses, patient aware that she may need Placement of NG tube again if she fails this. Resume oral calcium supplements. Patient otherwise denies any other complaints Tico still low, on IV tico as pt still has intermittent spasms. oct 09 patient seen examined, no acute overnight issues pt tolerating po diet well, on clear liquids, likeliy to be advanced to full liquid now. tico low, replace IV and increase oral replacement to 1000mg tid, repalce mg oral and IV plan for d/c home wihen cleared by surgery Oct 10 patient seen examined, pt had episodes of nausea overnight X ray abdomen shwos recurrence of SBO NG tube was attempted but was not possible, Patient allergic to reglan, started on erythromycin for prokientic effect this AM x ray better, patient no longer has nausea NPO status again, continue with erythromycin, start on linzezz 145 mcg dialy , patients reports this helps with he bowels replace mg and calcium IV Oct 11 Had some flatus from ostomy this afternoon. Up ambulating the halls. Starting to have an appetite and feeling hungry, no nausea. Started on erythromycin and Linzess, also receiving milk of magnesia. Still requiring electrolyte replacement. October 12 Had no further flatus yesterday. Dr. Pulliam as ordered TPN to start. Received milk of magnesia and bisacodyl per ostomy. At the time of my exam, starting to develop bowel sounds. Continues on erythromycin October 13 Was started on small amounts of clear fluids on an hourly basis today. Has tolerated that well. Passing stool and ostomy. Notices continued bowel sounds.correction from previously, and Linzess has been held for the past several days. Needed repeated calcium infusion today. Hopefully we'll be able to start by mouth meds tomorrow. Oct 14 Continues to tolerate clear fluids. Spirits are good because she is tolerating oral intake and continues to have flatus and stool via her ostomy. No nausea or vomiting. No abdominal pain. Oct 2 Continues to tolerate diet, up to full liquids. Transitioned over to oral prescriptions today. Has continued to ambulate in the cain. TPN is being weaned to off overnight. Suspect she should be able to go home soon, possibly tomorrow. Back on her usual motility agents. Oct 3 Was doing well up until last evening, when took ibuprofen for pain. Developed nausea and vomiting. Has been nauseated all night. Some epigastric pain, otherwise no significant abdominal pain. Having loose ostomy output, C. difficile was sent which was negative. Still having ostomy output and flatus. Still feeling nauseated this morning. Zofran not helping. Received one dose of Phenergan which did help. We'll plan to start fluids, stop nonsteroidals, and Compazine or Phenergan for nausea today. We'll need to continue to monitor. TPN is now been weaned to off overnight. Oct 17 Patient seen examined, yesterday, plan was to start on pyridostigmine for myasthenia related pseudoobtruction, one dose given, but patient labs came back showing sepsis syndrome, with leucocytosis, and lactic acidosis, and worsening renal function. medication stopped promplty CT scan of abdomen done shows SBO, cultures sent IV vanco, and cefepime and flagyl started cxr is neg, ua is neg Etiology of leucocytosis is likely GI related transmigration from Bowels. Surgery planning to take pt to the OR today, Prednisone and levothyroxine switched to IV Pertinent ROS: Denies headache, dizziness Denies chest pain, palpitations Denies cough or shortness of breath [id number] abdominal pain, nausea and vomiting. . - Constitutional Vitals: Vital Signs Temp Pulse Resp BP Pulse Ox 97.2 F 115 H 20 129/95 96 10/17/17 12:00 10/17/17 12:00 10/17/17 12:00 10/17/17 12:00 10/17/17 12:00 Period Temp Pulse Resp BP Sys/Archuleta Pulse Ox Last 24 Hr 97.2 F-99.2 F 115-146 14-22 128-157/95-113 92-96 Intake and Output 10/16/17 10/17/17 10/17/17 21:59 05:59 13:59 Intake Total 2240 / 2240 3511 / 3511 3820 / 3820 Output Total 200 / 200 675 / 675 275 / 275 Balance 2039 2836 / 2836 3545 / 3545 Weight 229 lb Intake & Output: Intake & Output 10/16/17 10/17/17 10/17/17 21:59 05:59 13:59 Intake Total 2240 / 2240 3511 / 3511 3820 / 3820 Output Total 200 / 200 675 / 675 275 / 275 Balance 2039 2836 / 2836 3545 / 3545 Weight 229 lb Intake: IV 2100 / 2100 3011 / 3011 3400 / 3400 Sodium Chloride 0.9% 1,000 ml @ 1000 / 1000 1000 / 1000 Wide Open IV BOLUS ONE Rx#: [id number] Sodium Chloride 0.9% 500 ml @ 500 / 500 Wide Open IV BOLUS ONE Rx#: [id number] Zosyn 3.375 gm In Dextrose 5% 50 / 50 in Water 50 ml @ 100 mls/hr IV Q8H [facility] Rx#:[id number] Vancomycin 1,000 mg In Sodium 250 / 250 Chloride 0.9% 250 ml @ 250 mls/ hr IV Q12H [facility] Rx#:[id number] Vancomycin 1,500 mg In Sodium 461 / 461 Chloride 0.9% 500 ml @ 333.3 mls/hr IV ONCE ONE Rx#: [id number] Oral 100 / 100 60 / 60 GI Tube Flush 300 / 300 IV - Manual Only 40 / 40 500 / 500 60 / 60 Output: Void Amount 675 / 675 Emesis 200 / 200 275 / 275 Other: # Voids 1 # Emeses 2 Exam: Constitutional; Afebrile, cooperative, alert, not in distress. Eyes- No icterus, , No periorbital swelling Ears- Ext ear normal, hearing normal to conversation. Neck- Midline trachea, supple Respiratory system: Air Entry equal on both sides, No crackles or wheezing, no rhonchi. CVS- Rate tachycardic, rhythm regular, S1,S2 heard, no gallop, no rub. Abdomen- Soft, some diffuse tenderness, absent BS. 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 Medical - PN: Obj Da - Labs CBC & Chem 7: 10/17/17 03:46 10/17/17 03:45 Labs: Abnormal Lab Results 10/17/17 10/17/17 10/17/17 08:26 08:03 03:46 WBC 23.3 H RBC Hgb Hct RDW Plt Count 586 H MPV 7.1 L Gran % 87.2 H Lymph % (Auto) 6.5 L Gran # 20.3 H Hunt # (Auto) 1.4 H D-Dimer ABG Methemoglobin 0.3 L VBG pCO2 35.1 L VBG pO2 138 H VBG HCO3 19.7 L VBG Total CO2 20.8 L VBG O2 Saturation 96.1 H VBG Base Excess -4.9 L VBG Lactic Acid 2.3 H Carboxyhemoglobin 2.1 H Chloride Carbon Dioxide Anion Gap BUN Creatinine Glucose Calcium Phosphorus Magnesium GGT AST ALT Lactate Dehydrogenase Globulin Triglycerides Urine WBC Amorphous Crystals Urine Bacteria Hyaline Casts Urine Mucus 10/17/17 10/17/17 10/16/17 03:46 03:45 18:10 WBC RBC Hgb Hct RDW Plt Count MPV Gran % Lymph % (Auto) Gran # Hunt # (Auto) D-Dimer 1.55 H ABG Methemoglobin VBG pCO2 VBG pO2 VBG HCO3 VBG Total CO2 VBG O2 Saturation VBG Base Excess VBG Lactic Acid 4.3 H* Carboxyhemoglobin Chloride Carbon Dioxide 17 L Anion Gap 23.0 H BUN 33 H Creatinine Glucose 208 H Calcium 8.0 L Phosphorus 6.2 H* Magnesium GGT 63 H AST 38 H ALT 85 H Lactate Dehydrogenase 324 H Globulin Triglycerides 790 H Urine WBC Amorphous Crystals Urine Bacteria Hyaline Casts Urine Mucus 10/16/17 10/16/17 10/16/17 18:10 18:10 18:10 WBC 24.1 H RBC Hgb Hct RDW 14.6 H Plt Count 705 H MPV 7.3 L Gran % 80.9 H Lymph % (Auto) 9.4 L Gran # 19.5 H Hunt # (Auto) 2.1 H D-Dimer ABG Methemoglobin VBG pCO2 VBG pO2 VBG HCO3 VBG Total CO2 VBG O2 Saturation VBG Base Excess VBG Lactic Acid 3.5 H Carboxyhemoglobin Chloride 91 L Carbon Dioxide 18 L Anion Gap 24.0 H BUN 36 H Creatinine 1.2 H Glucose 186 H Calcium Phosphorus 5.0 H Magnesium GGT 69 H AST ALT 83 H Lactate Dehydrogenase 465 H Globulin 3.8 H Triglycerides 814 H Urine WBC Amorphous Crystals Urine Bacteria Hyaline Casts Urine Mucus 10/16/17 10/16/17 10/15/17 06:34 03:21 04:50 WBC RBC 3.89 L Hgb 11.5 L Hct 34.7 L RDW Plt Count MPV 7.3 L Gran % Lymph % (Auto) Gran # Hunt # (Auto) 1.0 H D-Dimer ABG Methemoglobin VBG pCO2 VBG pO2 VBG HCO3 VBG Total CO2 VBG O2 Saturation VBG Base Excess VBG Lactic Acid Carboxyhemoglobin Chloride 90 L Carbon Dioxide Anion Gap 24.0 H BUN 34 H Creatinine Glucose 190 H Calcium Phosphorus Magnesium GGT 54 H AST 65 H ALT 101 H Lactate Dehydrogenase 385 H Globulin Triglycerides 802 H Urine WBC 7 H Amorphous Crystals Few A Urine Bacteria Few A Hyaline Casts 25 H Urine Mucus Many A 10/15/17 04:50 WBC RBC Hgb Hct RDW Plt Count MPV Gran % Lymph % (Auto) Gran # Hunt # (Auto) D-Dimer ABG Methemoglobin VBG pCO2 VBG pO2 VBG HCO3 VBG Total CO2 VBG O2 Saturation VBG Base Excess VBG Lactic Acid Carboxyhemoglobin Chloride Carbon Dioxide Anion Gap BUN Creatinine 0.5 L Glucose 175 H Calcium 7.3 L Phosphorus Magnesium 1.4 L GGT AST ALT Lactate Dehydrogenase 259 H Globulin Triglycerides 621 H Urine WBC Amorphous Crystals Urine Bacteria Hyaline Casts Urine Mucus Meds: Medications Albuterol Sulfate (Ventolin) 2.5 mg NEB Q2HP PRN PRN Reason: Shortness Of Breath Calcitriol (Rocaltrol) 0.5 mcg PT TID [facility] Last Admin: 10/17/17 09:21 Dose: Not Given Calcium Carbonate/Glycine (Calcium Carbonate) 1,000 mg PO TID [facility] Last Admin: 10/17/17 09:20 Dose: Not Given Cefepime HCl (Maxipime) 2 gm IV Q8H [facility] Last Admin: 10/17/17 08:05 Dose: 2 gm Dextrose (Dextrose 50%) 50 ml IV UD PRN PRN Reason: Hypoglycemia Diagnostic Test (Pha) (Accu-Chek) 1 each FS Q6H [facility] Last Admin: 10/17/17 12:27 Dose: 1 each Heparin Sodium (Porcine) (Heparin) 5,000 unit SQ Q12 [facility] Last Admin: 10/17/17 09:20 Dose: 5,000 unit Heparin Sodium (Porcine) (Heparin Flush) 2 ml IV Q12 [facility] Last Admin: 10/17/17 09:19 Dose: 2 ml Hydromorphone HCl (Dilaudid) 0.5 mg IV Q2HP PRN PRN Reason: PAIN LEVEL > 6 Last Admin: 10/17/17 09:43 Dose: 0.5 mg Acetaminophen (Ofirmev) 1,000 mg in 100 mls @ 200 mls/hr IV Q6HP PRN PRN Reason: PAIN/FEVER > 101 Last Infusion: 10/16/17 15:34 Dose: Infused Vancomycin HCl 1,000 mg/ (Sodium Chloride) 250 mls @ 250 mls/hr IV Q12H [facility] Last Infusion: 10/17/17 11:56 Dose: Infused Metronidazole (Flagyl) 500 mg in 100 mls @ 100 mls/hr IV Q8H [facility] Last Infusion: 10/17/17 11:56 Dose: Infused Insulin Human Lispro (Humalog) 0 unit SQ Q6 [facility] PRN Reason: Protocol Last Admin: 10/17/17 12:27 Dose: 4 unit Levothyroxine Sodium (Synthroid) 125 mcg IV QAMAC [facility] Last Admin: 10/17/17 09:17 Dose: 125 mcg Lorazepam (Ativan) 0.5 mg IV Q6HP PRN PRN Reason: ANXIETY/SEDATION Last Admin: 10/16/17 19:15 Dose: 0.5 mg Magnesium Oxide (Magnesium Oxide) 400 mg PO TID [facility] Last Admin: 10/17/17 09:21 Dose: Not Given Methylprednisolone Sodium Succinate (Solu-Medrol) 20 mg IV DAILY [facility] Last Admin: 10/17/17 09:19 Dose: 20 mg Multivitamins (Thera-Plus) 5 ml PO DAILY [facility] Last Admin: 10/17/17 09:22 Dose: Not Given Naloxone HCl (Narcan) 0.1 mg IV Q2MIN PRN PRN Reason: Opiate Reversal Non-Formulary Medication () 1 dose PO DAILY [facility] Last Admin: 10/17/17 09:21 Dose: Not Given Ondansetron HCl (Zofran) 4 mg IV Q6HP PRN PRN Reason: Nausea And Vomiting Last Admin: 10/16/17 17:08 Dose: 4 mg Pantoprazole Sodium (Protonix) 40 mg IV BIDAC [facility] Last Admin: 10/17/17 09:20 Dose: 40 mg Phenol (Chloroseptic [place]) 5 spray SSP Q2HP PRN PRN Reason: Sore Throat Polyethylene Glycol (Miralax) 17 gm PO BID [facility] Last Admin: 10/17/17 09:21 Dose: Not Given Prochlorperazine Edisylate (Compazine) 10 mg IV Q6HP PRN PRN Reason: Nausea And Vomiting Last Admin: 10/17/17 08:03 Dose: 10 mg Promethazine HCl (Phenergan) 25 mg IV Q6HP PRN PRN Reason: Nausea And Vomiting Last Admin: 10/17/17 12:26 Dose: 25 mg Sodium Chloride (Saline Flush) 10 ml IV Q12 [facility] Last Admin: 10/17/17 09:22 Dose: 10 ml Vancomycin HCl (Vancomycin Per Pharmacy) 1 order IV UD [facility] - ABG Interpretation ABG results: 10/17/17 08:03 ABG Methemoglobin 0.3 L VBG pH 7.37 VBG pCO2 35.1 L VBG pO2 138 H VBG HCO3 19.7 L VBG Total CO2 20.8 L VBG O2 Saturation 96.1 H VBG Base Excess -4.9 L Medical - PN: A/P - Time Spent With Patient Total time spent is greater than 50% in coordination of care (as documented) at patient's floor/unit and/or counseling patient: - Narrative A/P Narrative: A/P Small bowel obstruction: Recurrence of SBO (vs. dysmotility) after removal of NG tube. Intermittently able to tolerate po and have BM, but now again in obstruction. Surgery planned today Leucocytosis/ lactic Acidosis: Due to sepsis secondary to GI source, cultures sent on broad spectrum antibiotics. The patient has a PICC line and was receilving TPN so infection of line is plausible, therefore vanco is used. trend labs, lactic acid. Fever: resolved, no /o infection. Hypocalcemia: replaced IV and oral as able. Hypomagnesemia: replace IV try to keep mg > 2.0, start on mg oxide when able. Myasthenia gravis/ Sarcoidosis: On steroids prednisone 20mg qd, changed to IV solumedrol, but back to PO on Sat. High risk of osteoporosis, pt also needs PCP prophylaxis at this dose if going to be assisted, will discuss if PCP has reviewed this with her . Morbid Obesity: PCP to follow Tachycardia, secondary to anxiety/ GI issues, much better now. (has been worked up in the past, and her HR improves with improvement in GI symptoms,: HR stable presently, TSH low but T3 and T4 normal. Sepsis also playing a role now. Hypothyroidism : low TSH, normal t3, t4, resume dose once able to tolerate po. Osteoarthritis: Prn IV tylenol. Hep sq for DVT prophylaxis Full code. Medical - PN: Qual - VTE Deep Vein Thrombosis/Pulmonary Embolism Present on Admission: No
--- NOTE | 2017-10-17 13:20 | Cat Scan Report ---
CLINICAL INFORMATION: Abdominal pain and distention. History of small bowel obstruction COMPARISON: 10/03/[address] TECHNIQUE: 0.625 mm helical slices were obtained from the mid heart through the subtrochanteric regions. Following reconstruction, 2.5 mm sagittal, coronal and axial reformatted images were processed and reviewed at bone and soft tissue windows.The exam was performed using radiation dose optimization techniques including, but not limited to, automated exposure control, adjustment of the mA and/or kV according to patient size and use of iterative reconstruction technique. FINDINGS: Lung bases show COPD changes and scattered scarring. No effusion. Visualized heart is normal. Images should the abdomen show the noncontrasted liver to be normal gallbladder is surgically absent. Intrahepatic and common bile ducts are normal caliber. Both kidneys, adrenal glands, spleen, pancreas and aorta (noncontrast are normal in size configuration and focal lesion. Images should the pelvis show anteflexed normal appearing uterus. The urinary bladder is unremarkable. The stomach, duodenal and jejunum are markedly dilated to the level of the proximal ileum where there is abrupt tapering into a decompressed distal small bowel and colon. Obstruction is likely due to adhesions or stricture. There is no evidence of free air to suggest perforation and no free fluid is suggest third spacing. Sigmoid colectomy changes with Baez past radiation and descending colon colostomy all normal and unchanged. Bone windows show no osseous abnormality IMPRESSION: High-grade distal small bowel obstruction of the ileal level due to adhesions or stricture. No evidence of perforation third spacing or other complication. Sigmoid colectomy, Baez past creation and left lower quadrant colostomy all appear unremarkable Emphysema changes - lung bases Interpreted and Authenticated by: All Lundberg 10/17/17
[2017-10-17] MEDS ORDERED: KETOROLAC 30 MG/ML VIAL ONE (17:05)
[2017-10-17] MEDS ORDERED: PROPOFOL 200 MG/20 ML VIAL IV ONE (17:05)
[2017-10-17] MEDS ORDERED: MIDAZOLAM 2 MG/2 ML VIAL ONE (17:05)
[2017-10-17] MEDS ORDERED: KETAMINE 10 MG/ML ML ONE (17:05)
[2017-10-17] MEDS ORDERED: fentaNYL 100 MCG/2 ML VIAL IV ONE ×2 (17:05→19:14)
[2017-10-17] MEDS ORDERED: DEXAMETHASONE 10 MG/ML VIAL ONE (17:05)
[2017-10-17] MEDS ORDERED: LIDOCAINE HCL/PF 100 MG/5 ML SYRINGE IV ONE (17:05)
[2017-10-17] MEDS ORDERED: GLYCOPYRROLATE 0.2 MG/ML VIAL IV ONE (17:05)
[2017-10-17] MEDS ORDERED: ONDANSETRON 4 MG/2 ML VIAL ONE (17:05)
[2017-10-17] MEDS ORDERED: METOPROLOL TARTRATE 5 MG/5 ML VIAL IV ONE (17:05)
[2017-10-17] MEDS ORDERED: LEVOFLOXACIN 750 MG/150 ML BAG IV ONE (17:44)
[2017-10-17] MEDS ORDERED: ACETAMINOPHEN 1,000 MG/100 ML BOTTLE IV ONE (18:09)
[2017-10-17] MEDS ORDERED: METHOCARBAMOL 1,000 MG/10 ML VIAL IV PRN ×2 (18:09→19:39)
[2017-10-17] MEDS ORDERED: LACTATED RINGERS 250 ML IV PRN ×2 (18:09→19:39)
[2017-10-17] MEDS ORDERED: IPRATROPIUM/ALBUTEROL 3 ML AMPUL.NEB NEB PRN ×2 (18:09→19:39)
[2017-10-17] MEDS ORDERED: PROMETHAZINE 25 MG/ML VIAL IV PRN ×3 (18:09→19:39)
[2017-10-17] MEDS ORDERED: ONDANSETRON 4 MG/2 ML VIAL IV PRN ×3 (18:09→19:39)
[2017-10-17] MEDS ORDERED: NALOXONE HCL 0.4 MG/ML VIAL IV PRN ×3 (18:09→19:39)
[2017-10-17] MEDS ORDERED: MEPERIDINE 25 MG/ML SYRINGE IV PRN ×2 (18:09→19:39)
[2017-10-17] MEDS ORDERED: FLUMAZENIL 0.1 MG/ML ML IV PRN ×2 (18:09→19:39)
[2017-10-17] MEDS ORDERED: BENZOCAINE/MENTHOL 1 LOZENGE PO PRN ×2 (18:09→19:39)
[2017-10-17] MEDS ORDERED: LACTATED RINGERS 1,000 ML IV SCH ×2 (18:15→19:39)
[2017-10-17] MEDS ORDERED: BACITRACIN 50,000 UNIT VIAL IR ONE (18:35)
--- NOTE | 2017-10-17 19:04 | Brief Operative Note ---
Date of procedure: 10/17/17 Pre-op diagnosis: small bowel obstruction Post-op diagnosis: other (small bowel obstruction due to adhesions) Procedure: exploratory laparotomy with adhesiolysis Grafts/Implants: No Anesthesia: GETA Findings: tight adhesive bands from rectal pouch to base of small bowel mesentery with internal hernia and total obstruction of distal small bowel Complications: none Surgeon: Bertha Currie Specimens Removed/Pathology: none sent Condition: stable Disposition: PACU
[2017-10-17] MEDS: fentaNYL 100 MCG/2 ML VIAL IV PRN ×3 (19:06→19:15)
[2017-10-17] MEDS ORDERED: HYDROmorphone 2 MG/ML SYRINGE IV PRN ×2 (19:18→19:23)
[2017-10-17] MEDS ORDERED: fentaNYL 100 MCG/2 ML VIAL IV PRN (19:39)
[2017-10-17] MEDS ORDERED: LORazepam 2 MG/ML VIAL IV PRN (19:39)
[2017-10-17] MEDS ORDERED: VANCOMYCIN PER PHARMACY IV SCH (19:39)
[2017-10-17] MEDS ORDERED: ALBUTEROL SULFATE 2.5 MG/3 ML NEBULIZER NEB PRN (19:39)
[2017-10-17] MEDS ORDERED: PROCHLORPERAZINE 10 MG/2 ML VIAL IV PRN (19:39)
[2017-10-17] MEDS ORDERED: DEXTROSE 50% 50 ML VIAL IV PRN (19:39)
[2017-10-17] MEDS ORDERED: ACETAMINOPHEN 1,000 MG/100 ML BOTTLE IV PRN (19:39)
[2017-10-17] MEDS ORDERED: PHENOL/SODIUM PHENOLATE 5 SPRAY BOTTLE 180ML SSP PRN (19:39)
[2017-10-17] MEDS: 0.9 % SODIUM CHLORIDE 1,000 ML IV SCH (20:06)
[2017-10-18] MEDS: 0.9 % SODIUM CHLORIDE 1,000 ML IV SCH ×7 (01:42→22:52)
[2017-10-18] MEDS: HYDROmorphone 2 MG/ML SYRINGE IV PRN ×10 (01:47→22:57)
[2017-10-18] MEDS: INSULIN LISPRO 1 UNIT/0.01 ML UNIT SQ SCH ×4 (02:17→18:47)
[2017-10-18] MEDS ORDERED: ACETAMINOPHEN 1,000 MG/100 ML BOTTLE IV ONE (05:04)
[2017-10-18] MEDS: CEFEPIME 2 GM VIAL IV SCH ×3 (05:33→22:44)
[2017-10-18] MEDS: metroNIDAZOLE 500 MG/100 ML BAG IV SCH ×3 (05:35→23:17)
--- NOTE | 2017-10-18 07:17 | XRay Report ---
CLINICAL INFORMATION: Cough COMPARISON: None. FINDINGS: NG tube in place - tip extends to the gastric antrum. PICC line in stable satisfactory position. Cardiomediastinal silhouette and pulmonary vessels are normal. Lungs are clear. No effusions. IMPRESSION: Negative chest NG tube in satisfactory position in the stomach Interpreted and Authenticated by: All Lundberg 10/18/17
[2017-10-18] MEDS ORDERED: LEVOTHYROXINE 100 MCG VIAL IV SCH (07:30)
[2017-10-18] MEDS ORDERED: PANTOPRAZOLE 40 MG VIAL IV SCH (07:30)
[2017-10-18 08:00] LABS: Basophils # (Auto) 0 K/mcL (0.0-0.3); Basophils % (Auto) 0 % (0.0-2.0); Eosinophils # (Auto) 0.1 K/mcL (0.0-0.7); Eosinophils % (Auto) 0.8 % (0.0-7.0); Granulocytes % (Auto) 85.9 % (38.0-78.0); Lymphocytes # (Auto) 0.8 K/mcL (1.5-4.8); Lymphocytes % (Auto) 5.9 % (15.5-49.0); Mean Cell Volume 89.5 fL (80.0-100.0); Mean Corpuscular HGB Conc 32.4 g/dL (31.0-36.0); Monocytes % (Auto) 7.4 % (1.0-12.0); Platelet Count 382 K/mcL (140-440); RBC 3.22 M/mcL (4.00-5.20); Red Cell Distribution Width 14.3 % (11.5-14.5)
[2017-10-18 08:21] LABS: ALT/SGPT 52 U/l (0-40); Albumin 2.7 gm/dL (3.2-5.2); Albumin/Globulin Ratio 1.4 (1.0-2.3); Alkaline Phosphatase 57 U/L (39-117); Bilirubin,Direct < 0.2 mg/dL (0.0-0.3); Blood Urea Nitrogen 18 mg/dl (6-20); Gamma Glutamyl Transpeptidase 40 U/L (5-36); Magnesium 1.5 mg/dL (1.6-2.5); Uric Acid 4.2 mg/dL (2.5-8.0)
[2017-10-18] MEDS ORDERED: CALCIUM GLUCONATE 4.65 MEQ/10 ML VIAL IV ONE ×2 (08:50→15:45)
[2017-10-18] MEDS ORDERED: TPN PER PHARMACY IV ONE (08:58)
[2017-10-18] MEDS ORDERED: DEXTROSE 5% IN WATER 1,000 ML IV SCH (09:00)
[2017-10-18] MEDS ORDERED: methylPREDNISolone SOD SUCC 40 MG/ML VIAL IV SCH (09:00)
[2017-10-18] MEDS ORDERED: CALCIUM GLUCONATE 9.3 MEQ in DEXTROSE 5% IN WATER 100 ML IV ONE (09:00)
[2017-10-18] MEDS ORDERED: LINACLOTIDE 145 MG PO SCH (09:00)
[2017-10-18] MEDS ORDERED: MULTIVITAMINS,THERAPEUTIC 1 ML ORAL.SOL PO SCH (09:00)
[2017-10-18] MEDS: HEPARIN 5,000 UNIT/ML VIAL SQ SCH ×2 (09:20→22:44)
[2017-10-18] MEDS: 0.9 % SODIUM CHLORIDE 10 ML SYRINGE IV SCH ×2 (09:22→22:47)
[2017-10-18] MEDS ORDERED: MAGNESIUM SULFATE 32.48 MEQ in DEXTROSE 5% IN WATER 100 ML IV ONE (09:30)
--- NOTE | 2017-10-18 10:10 | General Surgery Progress Note ---
Subjective Patient reports: feels better, pain is less, no flatus, no bowel movement, afebrile Narrative: Note initiated : 10/18/17 at 10:08 am Service Date, if different from initiated Date: [] Patient: Dayanna Stephens 56 y/o F admitted on 10/03/17 for Abd Pain/ Constipation Post Ostomy/Small Bowel Obst Patient is doing much better. She states that her nausea has totally resolved. She has had 1100 cc total output through her NG since surgery. She has not had any output through her stoma as yet. Her abdominal pain is significantly improved. Her white blood count has decreased from 23,000-13,000. She is afebrile and her tachycardia has resolved with the baseline heart rate of 80.] Objective Temp Pulse Resp BP Pulse Ox 98.3 F 79 20 130/59 98 10/18/17 08:01 10/18/17 08:24 10/18/17 08:24 10/18/17 08:01 10/18/17 08:24 - Additional Data Intake & Output - Last 24 hours: Intake & Output 10/16/17 10/17/17 10/18/17 10/19/17 05:59 05:59 05:59 05:59 Intake Total 1760 / 1760 5751 / 5751 8850 / 8850 100 / 100 Output Total 3085 / 3085 965 / 965 1913 / 1913 545 / 545 Balance -1325 / -1325 4786 / 4786 6937 / 6937 -445 / -445 Weight 220 lb 9.6 oz 229 lb 226 lb 3 oz - General physical appearance moderate distress, moderate pain - Eyes PERRL - ENT no congestion - Neck no venous distension - Respiratory normal expansion, normal respiratory effort, clear to auscultation - Cardiovascular Cardiovascular exam: Present: normal rate and rhythm, RRR, +S1, +S2. Absent: JVD - Abdomen soft, tender (Mild tenderness around her incision; significant decrease in distention; good active bowel sounds; stoma looks good but has no output at this time) - Integumentary no rash, no growths, no abnormal pigmentation - Neurologic normal coordination, normal sensation - Musculoskeletal normal gait - Psychiatric oriented to time, oriented to person, oriented to place, speech is normal, memory intact - Labs 10/18/17 07:23 10/18/17 07:23 Diabetes panel 10/18/17 10/18/17 Range/Units 03:45 07:23 Sodium Not Reportable 140 Potassium Not Reportable 4.0 Chloride Not Reportable 106 Carbon Dioxide Not Reportable 22 BUN Not Reportable 18 Creatinine Not Reportable 0.5 L Glucose TNP 133 H Calcium Not Reportable 5.8 L* AST Not Reportable 24 ALT Not Reportable 52 H Alkaline Phosphatase Not Reportable 57 Total Protein Not Reportable 4.7 L Albumin Not Reportable 2.7 L Triglycerides Not Reportable 401 H Calcium panel 10/18/17 10/18/17 Range/Units 03:45 07:23 Calcium Not Reportable 5.8 L* Phosphorus Not Reportable 3.5 Albumin Not Reportable 2.7 L Pituitary panel 10/18/17 10/18/17 Range/Units 03:45 07:23 Sodium Not Reportable 140 Potassium Not Reportable 4.0 Chloride Not Reportable 106 Carbon Dioxide Not Reportable 22 BUN Not Reportable 18 Creatinine Not Reportable 0.5 L Glucose TNP 133 H Calcium Not Reportable 5.8 L* Adrenal panel 10/18/17 10/18/17 Range/Units 03:45 07:23 Sodium Not Reportable 140 Potassium Not Reportable 4.0 Chloride Not Reportable 106 Carbon Dioxide Not Reportable 22 BUN Not Reportable 18 Creatinine Not Reportable 0.5 L Glucose TNP 133 H Calcium Not Reportable 5.8 L* Total Bilirubin Not Reportable 0.3 AST Not Reportable 24 ALT Not Reportable 52 H Alkaline Phosphatase Not Reportable 57 Total Protein Not Reportable 4.7 L Albumin Not Reportable 2.7 L Assessment and Plan (1) Chronic intestinal pseudo-obstruction Status: Acute Assessment and plan: continue present supportive care Start TPN Replace calcium and phosphorus Current Visit: Yes (2) Hypothyroidism Status: Acute Current Visit: No (3) Myasthenia gravis Status: Acute Current Visit: No (4) Supraventricular tachycardia Status: Acute Assessment and plan: Discussed with Dr. Tucker who will address this after he has started her on physostigmine Current Visit: No - Time Spent With Patient Total time spent is greater than 50% in coordination of care (as documented) at patient's floor/unit and/or counseling patient:
--- NOTE | 2017-10-18 11:25 | Internal Med Progress Note ---
Medical - PN: Subj Patient information: Note initiated : 10/18/17 at 11:22 am Service Date, if different from initiated Date: [] Patient: Dayanna Stephens a 56 y/o F admitted on 10/03/17 for Abd Pain/ Constipation Post Ostomy/Small Bowel Obst. Chief Complaint: [] Interval history: Ms. Stephens is a 56 year old Female with h/o volvulus of the sigmoid colon, s/ p recent surgery by Dr Currie and was being closely followed in the outpatient clinic, presents today to the ER because of pain in the abdomen x 3 days, pain is sharp in the mid abdomen, non radiating, no aggravating relieving factors, noted that it was progressively getting worse, with some distention. She also had some episodes of sweating and dizziness, she therefore presented to the ER for further evaluation. IN the ER The abdomen x ray/ CT scan showed small bowel obstruction. Patients labs unremarkable, patient has h/o chr hypocalcemia, myasthenia gravis, severe anxiety and depression, osteoarthritis, hypothyroidism, autoimmune polyglandular syndrome, sarcoidosis. She will be admitted to medical floor, Gen Surgery consulting for SBO. Radiology trying to place NG tube, under fluoroscopy. The patient notes she has chr arthritis for which she takes some pain mes She also had some pain in the hypogastric regin, sharp shooting, which was told to in the past as nerve pain, The patient will be admitted to tele for further monitoring and management. Dec Patient seen examined, doing well, some nausea, and her chr pain issues, not no new concerns reported she has NG tube with good drainage, X ray this AM is better Calcium was low, she is on high dose calcitriol replacement, mg is normal Dec 23 Patient seen examined, no acute overnight issues, some nausea, NG tube draining well has low mg and calcium, being replaced X ray shows not much improvement in SBO, plan for mag citrate by Surgery, will see how she does. Dec 24 patient seen examined, no acute overnight issues, has low grade temp, but no obvious source plan to check CXR and X ray abdomen today, check procalcitonin and ua patient now has some improved output in the stoma, with some gas, calcium level is 6.0, replace IV, mg 1.7, replace. Dec 25 patient seen examined, tired and did not talk much was anxious overnight needing ativan, which helped She is moving bowels, patient X ray shows improving sbo plan to give diet via NG tube for now as per surgery, Replace IV calcium fever resolved, procalcitonin neg, ua neg, cxr neg, no e/o infection, monitor Oct 08 Patient seen examined, doing well, SBO improving, pt wanting oral trials Plan to d/c NG tube today and start on liquid diet to see how she progresses, patient aware that she may need Placement of NG tube again if she fails this. Resume oral calcium supplements. Patient otherwise denies any other complaints Tico still low, on IV tico as pt still has intermittent spasms. oct 09 patient seen examined, no acute overnight issues pt tolerating po diet well, on clear liquids, likeliy to be advanced to full liquid now. tico low, replace IV and increase oral replacement to 1000mg tid, repalce mg oral and IV plan for d/c home wihen cleared by surgery Oct 10 patient seen examined, pt had episodes of nausea overnight X ray abdomen shwos recurrence of SBO NG tube was attempted but was not possible, Patient allergic to reglan, started on erythromycin for prokientic effect this AM x ray better, patient no longer has nausea NPO status again, continue with erythromycin, start on linzezz 145 mcg dialy , patients reports this helps with he bowels replace mg and calcium IV Oct 11 Had some flatus from ostomy this afternoon. Up ambulating the halls. Starting to have an appetite and feeling hungry, no nausea. Started on erythromycin and Linzess, also receiving milk of magnesia. Still requiring electrolyte replacement. October 12 Had no further flatus yesterday. Dr. Pulliam as ordered TPN to start. Received milk of magnesia and bisacodyl per ostomy. At the time of my exam, starting to develop bowel sounds. Continues on erythromycin October 13 Was started on small amounts of clear fluids on an hourly basis today. Has tolerated that well. Passing stool and ostomy. Notices continued bowel sounds.correction from previously, and Linzess has been held for the past several days. Needed repeated calcium infusion today. Hopefully we'll be able to start by mouth meds tomorrow. Oct 14 Continues to tolerate clear fluids. Spirits are good because she is tolerating oral intake and continues to have flatus and stool via her ostomy. No nausea or vomiting. No abdominal pain. Oct 2 Continues to tolerate diet, up to full liquids. Transitioned over to oral prescriptions today. Has continued to ambulate in the cain. TPN is being weaned to off overnight. Suspect she should be able to go home soon, possibly tomorrow. Back on her usual motility agents. Oct 16 Was doing well up until last evening, when took ibuprofen for pain. Developed nausea and vomiting. Has been nauseated all night. Some epigastric pain, otherwise no significant abdominal pain. Having loose ostomy output, C. difficile was sent which was negative. Still having ostomy output and flatus. Still feeling nauseated this morning. Zofran not helping. Received one dose of Phenergan which did help. We'll plan to start fluids, stop nonsteroidals, and Compazine or Phenergan for nausea today. We'll need to continue to monitor. TPN is now been weaned to off overnight. Oct 17 Patient seen examined, yesterday, plan was to start on pyridostigmine for myasthenia related pseudoobtruction, one dose given, but patient labs came back showing sepsis syndrome, with leucocytosis, and lactic acidosis, and worsening renal function. medication stopped promplty CT scan of abdomen done shows SBO, cultures sent IV vanco, and cefepime and flagyl started cxr is neg, ua is neg Etiology of leucocytosis is likely GI related transmigration from Bowels. Surgery planning to take pt to the OR today, Prednisone and levothyroxine switched to IV Oct 19 patient seen examined, no acute overnight issues, NG tube s/p surgery for SBO, band noted, Patient hemodynamically much stable today, lacte neg, wbc trending down, good output via NG tube. On IV fluids Calcium dropped again, replace IV. replace Mg. given ongoing NG suctin, add KCL to replacement too xfer to med surg status. d/c vanco no suspicion for Gram positives, on cefepime and flagyl to continue Pertinent ROS: Denies headache, dizziness Denies chest pain, palpitations Denies cough or shortness of breath Prsent abdominal pain, no nausea or vomiting. - Constitutional Vitals: Vital Signs Temp Pulse Resp BP Pulse Ox 98.3 F 80 21 141/75 97 10/18/17 08:01 10/18/17 11:22 10/18/17 11:22 10/18/17 11:00 10/18/17 11:22 Period Temp Pulse Resp BP Sys/[place] Pulse Ox Last 24 Hr 97.2 F-99.9 F 73-124 12-28 121-174/59-107 92-100 Intake and Output 10/17/17 10/18/17 10/18/17 21:59 05:59 13:59 Intake Total 680 / 680 2350 / 2350 200 / 200 Output Total 805 / 805 833 / 833 700 / 700 Balance -125 / -125 1517 / 1517 -500 / -500 Weight 226 lb 3 oz 226 lb 3 oz Intake & Output: Intake & Output 10/17/17 10/18/17 10/18/17 21:59 05:59 13:59 Intake Total 680 / 680 2350 / 2350 200 / 200 Output Total 805 / 805 833 / 833 700 / 700 Balance -125 / -125 1517 / 1517 -500 / -500 Weight 226 lb 3 oz 226 lb 3 oz Intake: IV 600 / 600 2350 / 2350 200 / 200 Sodium Chloride 0.9% 1,000 ml @ 2000 / 2000 250 mls/hr IV .Q4H [facility] Rx#: [id number] Vancomycin 1,000 mg In Sodium 250 / 250 Chloride 0.9% 250 ml @ 250 mls/ hr IV Q12H [facility] Rx#:[id number] IV - Manual Only 80 / 80 Output: Gastric Drainage 400 / 400 400 / 400 Right Nare 400 / 400 400 / 400 Urine Catheter Amount 105 / 105 433 / 433 300 / 300 Void Amount 650 / 650 Emesis 50 / 50 Exam: Constitutional; Afebrile, cooperative, alert, not in distress. Eyes- No icterus, , No periorbital swelling Ears- Ext ear normal, hearing normal to conversation. Neck- Midline trachea, supple Respiratory system: Air Entry equal on both sides, No crackles or wheezing, no rhonchi. CVS- Rate rhythm regular, S1,S2 heard, no gallop, no rub. Abdomen- soft, sore after surgery, no BS, colostomy bag is empty. 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 Medical - PN: Obj Da - Labs CBC & Chem 7: 10/18/17 07:23 10/18/17 07:23 Labs: Abnormal Lab Results 10/18/17 10/18/17 10/17/17 07:23 07:23 13:25 WBC 13.3 H RBC 3.22 L Hgb 9.3 L Hct 28.8 L RDW Plt Count MPV 6.7 L Gran % 85.9 H Lymph % (Auto) 5.9 L Gran # 11.5 H Lymph # (Auto) 0.8 L Morris # (Auto) 1.0 H PT 14.6 H D-Dimer ABG Methemoglobin VBG pCO2 VBG pO2 VBG HCO3 VBG Total CO2 VBG O2 Saturation VBG Base Excess VBG Lactic Acid Carboxyhemoglobin Chloride Carbon Dioxide Anion Gap BUN Creatinine 0.5 L Glucose 133 H Calcium 5.8 L* Phosphorus Magnesium 1.5 L GGT 40 H AST ALT 52 H Lactate Dehydrogenase 280 H Total Protein 4.7 L Albumin 2.7 L Globulin 2.0 L Triglycerides 401 H Urine WBC Amorphous Crystals Urine Bacteria Hyaline Casts Urine Mucus 10/17/17 10/17/17 10/17/17 08:26 08:03 03:46 WBC 23.3 H RBC Hgb Hct RDW Plt Count 586 H MPV 7.1 L Gran % 87.2 H Lymph % (Auto) 6.5 L Gran # 20.3 H Lymph # (Auto) Morris # (Auto) 1.4 H PT D-Dimer ABG Methemoglobin 0.3 L VBG pCO2 35.1 L VBG pO2 138 H VBG HCO3 19.7 L VBG Total CO2 20.8 L VBG O2 Saturation 96.1 H VBG Base Excess -4.9 L VBG Lactic Acid 2.3 H Carboxyhemoglobin 2.1 H Chloride Carbon Dioxide Anion Gap BUN Creatinine Glucose Calcium Phosphorus Magnesium GGT AST ALT Lactate Dehydrogenase Total Protein Albumin Globulin Triglycerides Urine WBC Amorphous Crystals Urine Bacteria Hyaline Casts Urine Mucus 10/17/17 10/17/17 10/16/17 03:46 03:45 18:10 WBC RBC Hgb Hct RDW Plt Count MPV Gran % Lymph % (Auto) Gran # Lymph # (Auto) Morris # (Auto) PT D-Dimer 1.55 H ABG Methemoglobin VBG pCO2 VBG pO2 VBG HCO3 VBG Total CO2 VBG O2 Saturation VBG Base Excess VBG Lactic Acid 4.3 H* Carboxyhemoglobin Chloride Carbon Dioxide 17 L Anion Gap 23.0 H BUN 33 H Creatinine Glucose 208 H Calcium 8.0 L Phosphorus 6.2 H* Magnesium GGT 63 H AST 38 H ALT 85 H Lactate Dehydrogenase 324 H Total Protein Albumin Globulin Triglycerides 790 H Urine WBC Amorphous Crystals Urine Bacteria Hyaline Casts Urine Mucus 10/16/17 10/16/17 10/16/17 18:10 18:10 18:10 WBC 24.1 H RBC Hgb Hct RDW 14.6 H Plt Count 705 H MPV 7.3 L Gran % 80.9 H Lymph % (Auto) 9.4 L Gran # 19.5 H Lymph # (Auto) Morris # (Auto) 2.1 H PT D-Dimer ABG Methemoglobin VBG pCO2 VBG pO2 VBG HCO3 VBG Total CO2 VBG O2 Saturation VBG Base Excess VBG Lactic Acid 3.5 H Carboxyhemoglobin Chloride 91 L Carbon Dioxide 18 L Anion Gap 24.0 H BUN 36 H Creatinine 1.2 H Glucose 186 H Calcium Phosphorus 5.0 H Magnesium GGT 69 H AST ALT 83 H Lactate Dehydrogenase 465 H Total Protein Albumin Globulin 3.8 H Triglycerides 814 H Urine WBC Amorphous Crystals Urine Bacteria Hyaline Casts Urine Mucus 10/16/17 10/16/17 06:34 03:21 WBC RBC Hgb Hct RDW Plt Count MPV Gran % Lymph % (Auto) Gran # Lymph # (Auto) Morris # (Auto) PT D-Dimer ABG Methemoglobin VBG pCO2 VBG pO2 VBG HCO3 VBG Total CO2 VBG O2 Saturation VBG Base Excess VBG Lactic Acid Carboxyhemoglobin Chloride 90 L Carbon Dioxide Anion Gap 24.0 H BUN 34 H Creatinine Glucose 190 H Calcium Phosphorus Magnesium GGT 54 H AST 65 H ALT 101 H Lactate Dehydrogenase 385 H Total Protein Albumin Globulin Triglycerides 802 H Urine WBC 7 H Amorphous Crystals Few A Urine Bacteria Few A Hyaline Casts 25 H Urine Mucus Many A Meds: Medications Albuterol Sulfate (Ventolin) 2.5 mg NEB Q2HP PRN PRN Reason: Shortness Of Breath Cefepime HCl (Maxipime) 2 gm IV Q8H [facility] Last Admin: 10/18/17 05:33 Dose: 2 gm Dextrose (Dextrose 50%) 50 ml IV UD PRN PRN Reason: Hypoglycemia Diagnostic Test (Pha) (Accu-Chek) 1 each FS Q6H [facility] Last Admin: 01/05/18 05:34 Dose: 1 each Heparin Sodium (Porcine) (Heparin) 5,000 unit SQ Q12 [facility] Last Admin: 10/18/17 09:20 Dose: 5,000 unit Heparin Sodium (Porcine) (Heparin Flush) 2 ml IV Q12 [facility] Last Admin: 10/18/17 09:21 Dose: 2 ml Hydromorphone HCl (Dilaudid) 0.5 mg IV Q2HP PRN PRN Reason: PAIN LEVEL > 6 Last Admin: 10/18/17 09:20 Dose: 0.5 mg Metronidazole (Flagyl) 500 mg in 100 mls @ 100 mls/hr IV Q8H [facility] Last Infusion: 10/18/17 11:19 Dose: Infused Acetaminophen (Ofirmev) 1,000 mg in 100 mls @ 200 mls/hr IV Q6HP PRN PRN Reason: PAIN/FEVER > 101 Last Infusion: 10/18/17 07:31 Dose: Infused Sodium Chloride (Sodium Chloride 0.9%) 1,000 mls @ 250 mls/hr IV .Q4H [facility] Last Admin: 10/18/17 05:32 Dose: 250 mls/hr Magnesium Sulfate 32.48 meq/ (Dextrose) 108 mls @ 54 mls/hr IV ONCE ONE Stop: 10/18/17 11:29 Last Admin: 10/18/17 09:16 Dose: 54 mls/hr Dextrose (Dextrose 5% In Water) 1,000 mls @ 0 mls/hr IV .Q0M [facility] PRN Reason: KVO Stop: 10/18/17 12:59 Insulin Human Lispro (Humalog) 0 unit SQ Q6 [facility] PRN Reason: Protocol Last Admin: 10/18/17 05:34 Dose: Not Given Levothyroxine Sodium (Synthroid) 125 mcg IV QAMAC [facility] Last Admin: 10/18/17 09:19 Dose: 125 mcg Lorazepam (Ativan) 0.5 mg IV Q6HP PRN PRN Reason: ANXIETY/SEDATION Last Admin: 10/18/17 02:13 Dose: 0.5 mg Methylprednisolone Sodium Succinate (Solu-Medrol) 20 mg IV DAILY [facility] Last Admin: 10/18/17 09:20 Dose: 20 mg Multivitamins (Thera-Plus) 5 ml PO DAILY [facility] Last Admin: 10/18/17 09:22 Dose: Not Given Naloxone HCl (Narcan) 0.1 mg IV Q2MIN PRN PRN Reason: Opiate Reversal Linaclotide (Linzess () 145 Mg Cap) 1 dose PO DAILY [facility] Last Admin: 10/18/17 09:22 Dose: Not Given Ondansetron HCl (Zofran) 4 mg IV Q6HP PRN PRN Reason: Nausea And Vomiting Pantoprazole Sodium (Protonix) 40 mg IV BIDAC [facility] Last Admin: 10/18/17 09:20 Dose: 40 mg Phenol (Chloroseptic [place]) 5 spray SSP Q2HP PRN PRN Reason: Sore Throat Prochlorperazine Edisylate (Compazine) 10 mg IV Q6HP PRN PRN Reason: Nausea And Vomiting Promethazine HCl (Phenergan) 12.5 mg IV Q4HP PRN PRN Reason: Nausea And Vomiting Sodium Chloride (Saline Flush) 10 ml IV Q12 [facility] Last Admin: 10/18/17 09:22 Dose: 10 ml - ABG Interpretation ABG results: 10/17/17 08:03 ABG Methemoglobin 0.3 L VBG pH 7.37 VBG pCO2 35.1 L VBG pO2 138 H VBG HCO3 19.7 L VBG Total CO2 20.8 L VBG O2 Saturation 96.1 H VBG Base Excess -4.9 L Medical - PN: A/P - Time Spent With Patient Total time spent is greater than 50% in coordination of care (as documented) at patient's floor/unit and/or counseling patient: - Narrative A/P Narrative: A/P Small bowel obstruction: Recurrence of SBO (vs. dysmotility) after removal of NG tube. Is/p surgery, NG tube in place. Leucocytosis/ lactic Acidosis: Due to sepsis secondary to GI source, cultures sent on broad spectrum antibiotics. d/c vanco. cultures are negative. 5-7 days of cefepime and flagyl NPO status: has been NPO for quite a while, start back on TPN Fever: resolved, no /o infection. Hypocalcemia: replaced IV , resume oral once able, her Calcium was much better with oral calcium and calcitriol, but drops rapidly when she is NPO status. Hypomagnesemia: replace IV try to keep mg > 2.0, start on mg oxide when able. Myasthenia gravis/ Sarcoidosis: On steroids prednisone 20mg qd, changed to IV solumedrol, but back to PO on Sat. 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 Morbid Obesity: PCP to follow Tachycardia, secondary to anxiety/ GI issues, much better now. (has been worked up in the past, and her HR improves with improvement in GI symptoms,: HR stable presently, TSH low but T3 and T4 normal. Sepsis also playing a role now. Hypothyroidism : low TSH, normal t3, t4, resume dose once able to tolerate po. Osteoarthritis: Prn IV tylenol. Hep sq for DVT prophylaxis Full code. Medical - PN: Qual - VTE Deep Vein Thrombosis/Pulmonary Embolism Present on Admission: No
[2017-10-18] MEDS ORDERED: POTASSIUM CHLORIDE 40 MEQ in 0.9 % SODIUM CHLORIDE 500 ML IV ONE (12:00)
[2017-10-18] MEDS ORDERED: [UNRECOGNIZED DRUG - REMARK] IV SCH (14:00)
[2017-10-18] MEDS ORDERED: ALBUTEROL SULFATE 2.5 MG/3 ML NEBULIZER NEB PRN (15:45)
[2017-10-18] MEDS ORDERED: ONDANSETRON 4 MG/2 ML VIAL IV PRN (15:45)
[2017-10-18] MEDS ORDERED: DEXTROSE 50% 50 ML VIAL IV PRN (15:45)
[2017-10-18] MEDS ORDERED: NALOXONE HCL 0.4 MG/ML VIAL IV PRN (15:45)
[2017-10-18] MEDS ORDERED: FAT EMULSION 20% 250 ML IV SCH (16:00)
[2017-10-18] MEDS: ACETAMINOPHEN 1,000 MG/100 ML BOTTLE IV PRN (16:26)
[2017-10-18] MEDS: FAT EMULSION 20% 250 ML IV SCH (16:26)
[2017-10-18] MEDS: PANTOPRAZOLE 40 MG VIAL IV SCH (16:30)
[2017-10-18] MEDS: PROMETHAZINE 25 MG/ML VIAL IV PRN (21:20)
[2017-10-19] MEDS: 0.9 % SODIUM CHLORIDE 1,000 ML IV SCH ×2 (00:52→03:11)
[2017-10-19] MEDS: INSULIN LISPRO 1 UNIT/0.01 ML UNIT SQ SCH ×4 (01:02→17:57)
[2017-10-19] MEDS: LORazepam 2 MG/ML VIAL IV PRN (01:03)
[2017-10-19] MEDS: HYDROmorphone 2 MG/ML SYRINGE IV PRN ×9 (01:04→23:22)
[2017-10-19] MEDS: CEFEPIME 2 GM VIAL IV SCH ×3 (05:30→22:00)
[2017-10-19] MEDS: ACETAMINOPHEN 1,000 MG/100 ML BOTTLE IV PRN (05:43)
[2017-10-19] MEDS: PROMETHAZINE 25 MG/ML VIAL IV PRN ×3 (05:50→20:10)
[2017-10-19 06:08] LABS: Basophils # (Auto) 0 K/mcL (0.0-0.3); Basophils % (Auto) 0.2 % (0.0-2.0); Eosinophils # (Auto) 0.2 K/mcL (0.0-0.7); Eosinophils % (Auto) 1.8 % (0.0-7.0); Granulocytes % (Auto) 72.1 % (38.0-78.0); Lymphocytes # (Auto) 1.4 K/mcL (1.5-4.8); Lymphocytes % (Auto) 15.4 % (15.5-49.0); Mean Corpuscular HGB Conc 32.7 g/dL (31.0-36.0); Mean Corpuscular Hemoglobin 29.4 pg (26.0-34.0); Monocytes % (Auto) 10.5 % (1.0-12.0); Platelet Count 295 K/mcL (140-440); RBC 2.97 M/mcL (4.00-5.20); Red Cell Distribution Width 14.4 % (11.5-14.5)
[2017-10-19] MEDS: metroNIDAZOLE 500 MG/100 ML BAG IV SCH ×3 (06:17→22:03)
[2017-10-19 06:36] LABS: ALT/SGPT 42 U/l (0-40); Albumin 2.7 gm/dL (3.2-5.2); Albumin/Globulin Ratio 1.4 (1.0-2.3); Alkaline Phosphatase 51 U/L (39-117); Bilirubin,Direct < 0.2 mg/dL (0.0-0.3); Blood Urea Nitrogen 11 mg/dl (6-20); Gamma Glutamyl Transpeptidase 36 U/L (5-36); Magnesium 1.7 mg/dL (1.6-2.5); Uric Acid 3.8 mg/dL (2.5-8.0)
[2017-10-19] MEDS ORDERED: POTASSIUM CHLORIDE 40 MEQ in DEXTROSE 5% IN WATER 500 ML IV ONE (07:25)
[2017-10-19] MEDS ORDERED: CALCIUM GLUCONATE 4.65 MEQ/10 ML VIAL IV ONE (07:28)
[2017-10-19] MEDS ORDERED: MAGNESIUM SULFATE 2 GM/50 ML BAG IV ONE (07:35)
[2017-10-19] MEDS ORDERED: POTASSIUM CHLORIDE 40 MEQ in DEXTROSE 5% IN WATER 250 ML IV ONE (07:45)
[2017-10-19] MEDS ORDERED: CALCIUM GLUCONATE 9.3 MEQ in DEXTROSE 5% IN WATER 100 ML IV ONE (07:45)
[2017-10-19] MEDS: LEVOTHYROXINE 100 MCG VIAL IV SCH (08:07)
[2017-10-19] MEDS: PANTOPRAZOLE 40 MG VIAL IV SCH ×2 (08:07→17:47)
[2017-10-19] MEDS ORDERED: CALCITRIOL 0.5 MCG CAPSULE PT ONE (08:29)
[2017-10-19] MEDS: LINACLOTIDE 145 MG PO SCH (10:47)
[2017-10-19] MEDS: 0.9 % SODIUM CHLORIDE 10 ML SYRINGE IV SCH ×2 (10:47→22:02)
[2017-10-19] MEDS: MULTIVITAMINS,THERAPEUTIC 1 ML ORAL.SOL PO SCH (10:49)
[2017-10-19] MEDS: HEPARIN 5,000 UNIT/ML VIAL SQ SCH ×2 (10:55→21:58)
[2017-10-19] MEDS: methylPREDNISolone SOD SUCC 40 MG/ML VIAL IV SCH (10:56)
--- NOTE | 2017-10-19 11:53 | General Surgery Progress Note ---
Subjective Patient reports: feels better, pain is less, no flatus, no bowel movement, nausea, afebrile Narrative: Note initiated : 10/19/17 at 11:52 am Service Date, if different from initiated Date: [] Patient: Dayanna Stephens 56 y/o F admitted on 10/03/17 for Abd Pain/ Constipation Post Ostomy/Small Bowel Obst. Chief Complaint: [Patient is clinically stable. She states that she has nausea but it is related to a large volume phlegm associated with the nasogastric tube. She has not had vomiting. Her abdominal pain is controlled with her present medications. She has not had any output through her stoma. Her white blood count is 9.3.] Objective Temp Pulse Resp BP Pulse Ox 97.1 F 79 16 133/77 100 10/19/17 07:55 10/18/17 16:00 10/19/17 07:55 10/19/17 07:55 10/19/17 07:55 - Additional Data Intake & Output - Last 24 hours: Intake & Output 10/17/17 10/18/17 10/19/17 10/20/17 05:59 05:59 05:59 05:59 Intake Total 5751 / 5751 8850 / 8850 4498 / 4498 270 / 270 Output Total 965 / 965 1913 / 1913 4340 / 4340 Balance 4786 / 4786 6937 / 6937 158 / 158 270 / 270 Weight 229 lb 226 lb 3 oz 230 lb 6.4 oz - Additional Exam HEENT no abnormality noted--- Neck--without JVD or tenderness Chest-clear to auscultation without rales or wheezes- Heart regular rhythm without tachycardia--- Abdomen-nondistended--with good active bowel sounds; incision looks good; stoma is healthy but without drainage at this time Extremities ---without peripheral edema--- Neurologic no focal deficit--- - Labs 10/19/17 04:00 10/19/17 04:00 Diabetes panel 10/19/17 Range/Units 04:00 Sodium 143 (133-145) mmol/L Potassium 3.5 (3.3-5.1) mmol/L Chloride 108 (96-108) mmol/L Carbon Dioxide 23 (22-30) mmol/L BUN 11 (6-20) mg/dl Creatinine 0.5 L (0.6-1.1) mg/dl Glucose 128 H (70-105) mg/dL Calcium 5.5 L* (8.6-10.4) mg/dl AST 19 (0-37) U/l ALT 42 H (0-40) U/l Alkaline Phosphatase 51 (39-117) U/L Total Protein 4.7 L (5.9-8.4) gm/dL Albumin 2.7 L (3.2-5.2) gm/dL Triglycerides 283 H (<150) mg/dl Calcium panel 10/19/17 10/19/17 Range/Units 04:00 07:49 Calcium 5.5 L* (8.6-10.4) mg/dl Ionized Calcium Jeannie 0.75 L (1.16-1.32) mmol/L Phosphorus 2.2 L (2.7-4.5) mg/dL Albumin 2.7 L (3.2-5.2) gm/dL Pituitary panel 10/19/17 Range/Units 04:00 Sodium 143 (133-145) mmol/L Potassium 3.5 (3.3-5.1) mmol/L Chloride 108 (96-108) mmol/L Carbon Dioxide 23 (22-30) mmol/L BUN 11 (6-20) mg/dl Creatinine 0.5 L (0.6-1.1) mg/dl Glucose 128 H (70-105) mg/dL Calcium 5.5 L* (8.6-10.4) mg/dl Adrenal panel 10/19/17 Range/Units 04:00 Sodium 143 (133-145) mmol/L Potassium 3.5 (3.3-5.1) mmol/L Chloride 108 (96-108) mmol/L Carbon Dioxide 23 (22-30) mmol/L BUN 11 (6-20) mg/dl Creatinine 0.5 L (0.6-1.1) mg/dl Glucose 128 H (70-105) mg/dL Calcium 5.5 L* (8.6-10.4) mg/dl Total Bilirubin < 0.2 (0.0-1.0) mg/dL AST 19 (0-37) U/l ALT 42 H (0-40) U/l Alkaline Phosphatase 51 (39-117) U/L Total Protein 4.7 L (5.9-8.4) gm/dL Albumin 2.7 L (3.2-5.2) gm/dL Assessment and Plan (1) Chronic intestinal pseudo-obstruction Status: Acute Assessment and plan: continue present supportive care Start TPN Replace calcium and phosphorus Current Visit: Yes (2) Hypothyroidism Status: Acute Current Visit: No (3) Myasthenia gravis Status: Acute Current Visit: No (4) Supraventricular tachycardia Status: Resolved Assessment and plan: Discussed with Dr. Tucker who will address this after he has started her on physostigmine Current Visit: No - Time Spent With Patient Total time spent is greater than 50% in coordination of care (as documented) at patient's floor/unit and/or counseling patient:
--- NOTE | 2017-10-19 13:08 | Internal Med Progress Note ---
Medical - PN: Subj Patient information: Note initiated : 10/19/17 at 1:03 pm Service Date, if different from initiated Date: [] Patient: Dayanna Stephens a 56 y/o F admitted on 10/03/17 for Abd Pain/ Constipation Post Ostomy/Small Bowel Obst. Chief Complaint: [] Interval history: Ms. Stephens is a 56 year old Female with h/o volvulus of the sigmoid colon, s/ p recent surgery by Dr Currie and was being closely followed in the outpatient clinic, presents today to the ER because of pain in the abdomen x 3 days, pain is sharp in the mid abdomen, non radiating, no aggravating relieving factors, noted that it was progressively getting worse, with some distention. She also had some episodes of sweating and dizziness, she therefore presented to the ER for further evaluation. IN the ER The abdomen x ray/ CT scan showed small bowel obstruction. Patients labs unremarkable, patient has h/o chr hypocalcemia, myasthenia gravis, severe anxiety and depression, osteoarthritis, hypothyroidism, autoimmune polyglandular syndrome, sarcoidosis. She will be admitted to medical floor, Gen Surgery consulting for SBO. Radiology trying to place NG tube, under fluoroscopy. The patient notes she has chr arthritis for which she takes some pain mes She also had some pain in the hypogastric regin, sharp shooting, which was told to in the past as nerve pain, The patient will be admitted to tele for further monitoring and management. Dec 22 Patient seen examined, doing well, some nausea, and her chr pain issues, not no new concerns reported she has NG tube with good drainage, X ray this AM is better Calcium was low, she is on high dose calcitriol replacement, mg is normal Dec 23 Patient seen examined, no acute overnight issues, some nausea, NG tube draining well has low mg and calcium, being replaced X ray shows not much improvement in SBO, plan for mag citrate by Surgery, will see how she does. Dec 24 patient seen examined, no acute overnight issues, has low grade temp, but no obvious source plan to check CXR and X ray abdomen today, check procalcitonin and ua patient now has some improved output in the stoma, with some gas, calcium level is 6.0, replace IV, mg 1.7, replace. Dec 25 patient seen examined, tired and did not talk much was anxious overnight needing ativan, which helped She is moving bowels, patient X ray shows improving sbo plan to give diet via NG tube for now as per surgery, Replace IV calcium fever resolved, procalcitonin neg, ua neg, cxr neg, no e/o infection, monitor Oct 08 Patient seen examined, doing well, SBO improving, pt wanting oral trials Plan to d/c NG tube today and start on liquid diet to see how she progresses, patient aware that she may need Placement of NG tube again if she fails this. Resume oral calcium supplements. Patient otherwise denies any other complaints Lyle still low, on IV lyle as pt still has intermittent spasms. oct 09 patient seen examined, no acute overnight issues pt tolerating po diet well, on clear liquids, likeliy to be advanced to full liquid now. lyle low, replace IV and increase oral replacement to 1000mg tid, repalce mg oral and IV plan for d/c home wihen cleared by surgery Oct 10 patient seen examined, pt had episodes of nausea overnight X ray abdomen shwos recurrence of SBO NG tube was attempted but was not possible, Patient allergic to reglan, started on erythromycin for prokientic effect this AM x ray better, patient no longer has nausea NPO status again, continue with erythromycin, start on linzezz 145 mcg dialy , patients reports this helps with he bowels replace mg and calcium IV Oct 11 Had some flatus from ostomy this afternoon. Up ambulating the halls. Starting to have an appetite and feeling hungry, no nausea. Started on erythromycin and Linzess, also receiving milk of magnesia. Still requiring electrolyte replacement. October 12 Had no further flatus yesterday. Dr. Pulliam as ordered TPN to start. Received milk of magnesia and bisacodyl per ostomy. At the time of my exam, starting to develop bowel sounds. Continues on erythromycin October 13 Was started on small amounts of clear fluids on an hourly basis today. Has tolerated that well. Passing stool and ostomy. Notices continued bowel sounds.correction from previously, and Linzess has been held for the past several days. Needed repeated calcium infusion today. Hopefully we'll be able to start by mouth meds tomorrow. Oct 14 Continues to tolerate clear fluids. Spirits are good because she is tolerating oral intake and continues to have flatus and stool via her ostomy. No nausea or vomiting. No abdominal pain. Oct 15 Continues to tolerate diet, up to full liquids. Transitioned over to oral prescriptions today. Has continued to ambulate in the cain. TPN is being weaned to off overnight. Suspect she should be able to go home soon, possibly tomorrow. Back on her usual motility agents. Oct 16 Was doing well up until last evening, when took ibuprofen for pain. Developed nausea and vomiting. Has been nauseated all night. Some epigastric pain, otherwise no significant abdominal pain. Having loose ostomy output, C. difficile was sent which was negative. Still having ostomy output and flatus. Still feeling nauseated this morning. Zofran not helping. Received one dose of Phenergan which did help. We'll plan to start fluids, stop nonsteroidals, and Compazine or Phenergan for nausea today. We'll need to continue to monitor. TPN is now been weaned to off overnight. Oct 17 Patient seen examined, yesterday, plan was to start on pyridostigmine for myasthenia related pseudoobtruction, one dose given, but patient labs came back showing sepsis syndrome, with leucocytosis, and lactic acidosis, and worsening renal function. medication stopped promplty CT scan of abdomen done shows SBO, cultures sent IV vanco, and cefepime and flagyl started cxr is neg, ua is neg Etiology of leucocytosis is likely GI related transmigration from Bowels. Surgery planning to take pt to the OR today, Prednisone and levothyroxine switched to IV Oct 18 patient seen examined, no acute overnight issues, NG tube s/p surgery for SBO, band noted, Patient hemodynamically much stable today, lacte neg, wbc trending down, good output via NG tube. On IV fluids Calcium dropped again, replace IV. replace Mg. given ongoing NG suctin, add KCL to replacement too xfer to med surg status. d/c vanco no suspicion for Gram positives, on cefepime and flagyl to continue Oct 19 patient seen examined, no acute overnight issues, abdomen is sore, but pain controlled, no output from stoma pt calcium still low stat on high dose of PT calcitirol as well as oral calcium and IV calcium replacements. higher than usual doses used as pt has NG suction, which will limit some absorbtion of meds hb dropped to 8.7 no e/o overt bleed pt otherwise doing well. Pertinent ROS: Denies headache, dizziness Denies chest pain, palpitations Denies cough or shortness of breath Denies abdominal pain some sorness present, nausea or vomiting. - Constitutional Vitals: Vital Signs Temp Pulse Resp BP Pulse Ox 97.7 F 79 16 135/75 96 10/19/17 11:58 10/18/17 16:00 10/19/17 11:58 10/19/17 11:58 10/19/17 11:58 Period Temp Pulse Resp BP Sys/[place] Pulse Ox Last 24 Hr 97.1 F-99.1 F 75-85 11-20 133-158/70-91 96-100 Intake and Output 10/18/17 10/19/17 10/19/17 21:59 05:59 13:59 Intake Total 1947 / 1948 1350 / 1350 270 / 270 Output Total 1000 / 1000 2450 / 2450 Balance 948 / 948 -1100 / -1100 270 / 270 Weight 230 lb 6.4 oz Intake & Output: Intake & Output 10/18/17 10/19/17 10/19/17 21:59 05:59 13:59 Intake Total 194 / 1948 1350 / 1350 270 / 270 Output Total 1000 / 1000 2450 / 2450 Balance 948 / 948 -1100 / -1100 270 / 270 Weight 230 lb 6.4 oz Intake: IV 1947 / 1948 1350 / 1350 270 / 270 Sodium Chloride 0.9% 1,000 ml @ 1000 / 1000 250 mls/hr IV .Q4H [facility] Rx#: [id number] Intralipid 20% 250 ml @ 25 mls/ 250 / 250 hr IV [id number]@1600 [facility] Rx#: [id number] Output: Gastric Drainage 400 / 400 700 / 700 Right Nare 400 / 400 700 / 700 Urine Catheter Amount 600 / 600 1750 / 1750 Exam: Constitutional; Afebrile, cooperative, alert, not in distress. Eyes- No icterus, , No periorbital swelling Ears- Ext ear normal, hearing normal to conversation. Neck- Midline trachea, supple Respiratory system: Air Entry equal on both sides, No crackles or wheezing, no rhonchi. CVS- Rate rhythm regular, S1,S2 heard, no gallop, no rub. Abdomen- Soft nontender abdomen, no organomegaly, no tenderness, no guarding or rigidity, bs present, FIELD CHECKER- AOOx3, moving all extremities, no gross focal deficit noted. Medical - PN: Obj Da - Labs CBC & Chem 7: 10/19/17 04:00 10/19/17 04:00 Labs: Abnormal Lab Results 10/19/17 10/19/17 10/19/17 07:49 04:00 04:00 WBC RBC 2.97 L Hgb 8.7 L Hct 26.8 L RDW Plt Count MPV 7.3 L Gran % Lymph % (Auto) 15.4 L Gran # Lymph # (Auto) 1.4 L [place] # (Auto) 1.0 H PT D-Dimer ABG Methemoglobin VBG pCO2 VBG pO2 VBG HCO3 VBG Total CO2 VBG O2 Saturation VBG Base Excess VBG Lactic Acid Carboxyhemoglobin Chloride Carbon Dioxide Anion Gap BUN Creatinine 0.5 L Glucose 128 H Calcium 5.5 L* Ionized Calcium Jeannie 0.75 L Phosphorus 2.2 L Magnesium GGT AST ALT 42 H Lactate Dehydrogenase 302 H Total Protein 4.7 L Albumin 2.7 L Globulin 2.0 L Triglycerides 283 H Urine WBC Amorphous Crystals Urine Bacteria Hyaline Casts Urine Mucus 10/18/17 10/18/17 10/17/17 07:23 07:23 13:25 WBC 13.3 H RBC 3.22 L Hgb 9.3 L Hct 28.8 L RDW Plt Count MPV 6.7 L Gran % 85.9 H Lymph % (Auto) 5.9 L Gran # 11.5 H Lymph # (Auto) 0.8 L [place] # (Auto) 1.0 H PT 14.6 H D-Dimer ABG Methemoglobin VBG pCO2 VBG pO2 VBG HCO3 VBG Total CO2 VBG O2 Saturation VBG Base Excess VBG Lactic Acid Carboxyhemoglobin Chloride Carbon Dioxide Anion Gap BUN Creatinine 0.5 L Glucose 133 H Calcium 5.8 L* Ionized Calcium Jeannie Phosphorus Magnesium 1.5 L GGT 40 H AST ALT 52 H Lactate Dehydrogenase 280 H Total Protein 4.7 L Albumin 2.7 L Globulin 2.0 L Triglycerides 401 H Urine WBC Amorphous Crystals Urine Bacteria Hyaline Casts Urine Mucus 10/17/17 10/17/17 10/17/17 08:26 08:03 03:46 WBC 23.3 H RBC Hgb Hct RDW Plt Count 586 H MPV 7.1 L Gran % 87.2 H Lymph % (Auto) 6.5 L Gran # 20.3 H Lymph # (Auto) [place] # (Auto) 1.4 H PT D-Dimer ABG Methemoglobin 0.3 L VBG pCO2 35.1 L VBG pO2 138 H VBG HCO3 19.7 L VBG Total CO2 20.8 L VBG O2 Saturation 96.1 H VBG Base Excess -4.9 L VBG Lactic Acid 2.3 H Carboxyhemoglobin 2.1 H Chloride Carbon Dioxide Anion Gap BUN Creatinine Glucose Calcium Ionized Calcium Jeannie Phosphorus Magnesium GGT AST ALT Lactate Dehydrogenase Total Protein Albumin Globulin Triglycerides Urine WBC Amorphous Crystals Urine Bacteria Hyaline Casts Urine Mucus 10/17/17 10/17/17 10/16/17 03:46 03:45 18:10 WBC RBC Hgb Hct RDW Plt Count MPV Gran % Lymph % (Auto) Gran # Lymph # (Auto) [place] # (Auto) PT D-Dimer 1.55 H ABG Methemoglobin VBG pCO2 VBG pO2 VBG HCO3 VBG Total CO2 VBG O2 Saturation VBG Base Excess VBG Lactic Acid 4.3 H* Carboxyhemoglobin Chloride Carbon Dioxide 17 L Anion Gap 23.0 H BUN 33 H Creatinine Glucose 208 H Calcium 8.0 L Ionized Calcium Jeannie Phosphorus 6.2 H* Magnesium GGT 63 H AST 38 H ALT 85 H Lactate Dehydrogenase 324 H Total Protein Albumin Globulin Triglycerides 790 H Urine WBC Amorphous Crystals Urine Bacteria Hyaline Casts Urine Mucus 10/16/17 10/16/17 10/16/17 18:10 18:10 18:10 WBC 24.1 H RBC Hgb Hct RDW 14.6 H Plt Count 705 H MPV 7.3 L Gran % 80.9 H Lymph % (Auto) 9.4 L Gran # 19.5 H Lymph # (Auto) [place] # (Auto) 2.1 H PT D-Dimer ABG Methemoglobin VBG pCO2 VBG pO2 VBG HCO3 VBG Total CO2 VBG O2 Saturation VBG Base Excess VBG Lactic Acid 3.5 H Carboxyhemoglobin Chloride 91 L Carbon Dioxide 18 L Anion Gap 24.0 H BUN 36 H Creatinine 1.2 H Glucose 186 H Calcium Ionized Calcium Jeannie Phosphorus 5.0 H Magnesium GGT 69 H AST ALT 83 H Lactate Dehydrogenase 465 H Total Protein Albumin Globulin 3.8 H Triglycerides 814 H Urine WBC Amorphous Crystals Urine Bacteria Hyaline Casts Urine Mucus 10/16/17 03:21 WBC RBC Hgb Hct RDW Plt Count MPV Gran % Lymph % (Auto) Gran # Lymph # (Auto) [place] # (Auto) PT D-Dimer ABG Methemoglobin VBG pCO2 VBG pO2 VBG HCO3 VBG Total CO2 VBG O2 Saturation VBG Base Excess VBG Lactic Acid Carboxyhemoglobin Chloride Carbon Dioxide Anion Gap BUN Creatinine Glucose Calcium Ionized Calcium Jeannie Phosphorus Magnesium GGT AST ALT Lactate Dehydrogenase Total Protein Albumin Globulin Triglycerides Urine WBC 7 H Amorphous Crystals Few A Urine Bacteria Few A Hyaline Casts 25 H Urine Mucus Many A Meds: Medications Albuterol Sulfate (Ventolin) 2.5 mg NEB Q2HP PRN PRN Reason: Shortness Of Breath Calcitriol (Rocaltrol) 1 mcg PT TID [place] Calcium Carbonate/Glycine (Calcium Carbonate) 1,000 mg PT TID [facility] Cefepime HCl (Maxipime) 2 gm IV Q8H [facility] Last Admin: 10/19/17 05:30 Dose: 2 gm Dextrose (Dextrose 50%) 50 ml IV UD PRN PRN Reason: Hypoglycemia Diagnostic Test (Pha) (Accu-Chek) 1 each FS Q6H [facility] Last Admin: 10/19/17 12:04 Dose: 1 each Heparin Sodium (Porcine) (Heparin) 5,000 unit SQ Q12 [facility] Last Admin: 10/19/17 10:55 Dose: 5,000 unit Heparin Sodium (Porcine) (Heparin Flush) 2 ml IV Q12 [facility] Last Admin: 10/19/17 10:49 Dose: Not Given Hydromorphone HCl (Dilaudid) 0.5 mg IV Q2HP PRN PRN Reason: PAIN LEVEL > 6 Last Admin: 10/19/17 10:33 Dose: 0.5 mg Fat Emulsion Intravenous (Intralipid 20%) 250 mls @ 25 mls/hr IV [id number]@1600 [facility] Last Infusion: 10/19/17 02:30 Dose: Infused Metronidazole (Flagyl) 500 mg in 100 mls @ 100 mls/hr IV Q8H [facility] Last Admin: 10/19/17 06:17 Dose: 100 mls/hr Acetaminophen (Ofirmev) 1,000 mg in 100 mls @ 200 mls/hr IV Q6HP PRN PRN Reason: PAIN/FEVER > 101 Last Infusion: 10/19/17 06:15 Dose: Infused Calcium Gluconate 4.65 meq/Multivitamins/Minerals 10 ml/Selenium 60 mcg/ Potassium Chloride 20 meq/ Potassium Phosphate 20 meq/ Amino Acids 1,036.0455 mls @ 55 mls/hr IV Q19H [facility] Insulin Human Lispro (Humalog) 0 unit SQ Q6 [facility] PRN Reason: Protocol Last Admin: 10/19/17 12:06 Dose: 2 unit Levothyroxine Sodium (Synthroid) 125 mcg IV QAMAC [facility] Last Admin: 10/19/17 08:07 Dose: 125 mcg Lorazepam (Ativan) 0.5 mg IV Q6HP PRN PRN Reason: ANXIETY/SEDATION Last Admin: 10/19/17 01:03 Dose: 0.5 mg Methylprednisolone Sodium Succinate (Solu-Medrol) 20 mg IV DAILY [facility] Last Admin: 10/19/17 10:56 Dose: 20 mg Multivitamins (Thera-Plus) 5 ml PO DAILY [facility] Last Admin: 10/19/17 10:49 Dose: Not Given Naloxone HCl (Narcan) 0.1 mg IV Q2MIN PRN PRN Reason: Opiate Reversal Linaclotide (Linzess () 145mg Cap) 1 dose PO DAILY [facility] Last Admin: 10/19/17 10:47 Dose: Not Given Ondansetron HCl (Zofran) 4 mg IV Q6HP PRN PRN Reason: Nausea And Vomiting Last Admin: 10/18/17 16:32 Dose: 4 mg Pantoprazole Sodium (Protonix) 40 mg IV BIDAC [facility] Last Admin: 10/19/17 08:07 Dose: 40 mg Phenol (Chloroseptic Lynn) 5 spray SSP Q2HP PRN PRN Reason: Sore Throat Prochlorperazine Edisylate (Compazine) 10 mg IV Q6HP PRN PRN Reason: Nausea And Vomiting Promethazine HCl (Phenergan) 12.5 mg IV Q4HP PRN PRN Reason: Nausea And Vomiting Last Admin: 10/19/17 11:56 Dose: 12.5 mg Sodium Chloride (Saline Flush) 10 ml IV Q12 [facility] Last Admin: 10/19/17 10:47 Dose: Not Given - ABG Interpretation ABG results: 10/17/17 08:03 ABG Methemoglobin 0.3 L VBG pH 7.37 VBG pCO2 35.1 L VBG pO2 138 H VBG HCO3 19.7 L VBG Total CO2 20.8 L VBG O2 Saturation 96.1 H VBG Base Excess -4.9 L Medical - PN: A/P - Time Spent With Patient Total time spent is greater than 50% in coordination of care (as documented) at patient's floor/unit and/or counseling patient: - Narrative A/P Narrative: A/P Small bowel obstruction: Recurrence of SBO (vs. dysmotility) after removal of NG tube. Is/p surgery, NG tube in place. Leucocytosis/ lactic Acidosis: resolved, on abx total of 7 days planned anemia hb 8.7, due to infection, recent surgery, no overt bleed, monitor. NPO status: has been NPO for quite a while, started back on TPN Fever: resolved, no /o infection. Hypocalcemia: replaced IV again, resume oral calcium and calcitriol at high ad doses, trend calcium. Hypomagnesemia: replace IV try to keep mg > 2.0, start on mg oxide when able. Myasthenia gravis/ Sarcoidosis: On steroids prednisone 20mg qd, changed to IV solumedrol, but back to PO on Sat. 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 She will be advised to discuss this with her PCP Morbid Obesity: PCP to follow Tachycardia, secondary to anxiety/ GI issues, resolved now, (has been worked up in the past, and her HR improves with improvement in GI symptoms,: HR stable presently, TSH low but T3 and T4 normal. Sepsis also playing a role now. Hypothyroidism : low TSH, normal t3, t4, resume dose once able to tolerate po. Osteoarthritis: Prn IV tylenol. Hep sq for DVT prophylaxis Full code. Medical - PN: Qual - VTE Deep Vein Thrombosis/Pulmonary Embolism Present on Admission: No
[2017-10-19] MEDS ORDERED: [UNRECOGNIZED DRUG - REMARK] IV SCH (14:00)
[2017-10-19] MEDS ORDERED: [UNRECOGNIZED DRUG - REMARK] IV SCH (14:00)
[2017-10-19 14:40] LABS: Ionized Calcium 0.82 mmol/L (1.16-1.32)
[2017-10-19 14:51] LABS: Blood Urea Nitrogen 10 mg/dl (6-20)
[2017-10-19] MEDS: CALCITRIOL 0.5 MCG CAPSULE PT SCH ×2 (15:40→21:58)
[2017-10-19] MEDS: CALCIUM CARBONATE 1,250 MG/5 ML ORAL.SUSP PT SCH ×2 (15:40→21:59)
[2017-10-19] MEDS: PROCHLORPERAZINE 10 MG/2 ML VIAL IV PRN (15:54)
[2017-10-20] MEDS: PROCHLORPERAZINE 10 MG/2 ML VIAL IV PRN
[2017-10-20] MEDS: LORazepam 2 MG/ML VIAL IV PRN ×2 (00:13→21:05)
[2017-10-20] MEDS: INSULIN LISPRO 1 UNIT/0.01 ML UNIT SQ SCH ×5 (00:48→23:44)
[2017-10-20] MEDS ORDERED: HYDROmorphone 2 MG/ML SYRINGE ONE (03:53)
[2017-10-20 05:28] LABS: Basophils # (Auto) 0 K/mcL (0.0-0.3); Basophils % (Auto) 0.4 % (0.0-2.0); Eosinophils # (Auto) 0.2 K/mcL (0.0-0.7); Eosinophils % (Auto) 2.4 % (0.0-7.0); Granulocytes % (Auto) 61.1 % (38.0-78.0); Lymphocytes # (Auto) 1.8 K/mcL (1.5-4.8); Lymphocytes % (Auto) 24.3 % (15.5-49.0); Mean Cell Volume 89.6 fL (80.0-100.0); Mean Corpuscular HGB Conc 33.4 g/dL (31.0-36.0); Mean Corpuscular Hemoglobin 29.9 pg (26.0-34.0); Monocytes # (Auto) 0.9 K/mcL (0.1-0.9); Monocytes % (Auto) 11.8 % (1.0-12.0); Platelet Count 240 K/mcL (140-440); RBC 3.15 M/mcL (4.00-5.20); Red Cell Distribution Width 14.5 % (11.5-14.5)
[2017-10-20] MEDS: metroNIDAZOLE 500 MG/100 ML BAG IV SCH ×3 (05:33→23:43)
[2017-10-20 05:59] LABS: ALT/SGPT 37 U/l (0-40); Albumin 2.9 gm/dL (3.2-5.2); Albumin/Globulin Ratio 1.3 (1.0-2.3); Alkaline Phosphatase 56 U/L (39-117); Bilirubin,Direct < 0.2 mg/dL (0.0-0.3); Blood Urea Nitrogen 10 mg/dl (6-20); Gamma Glutamyl Transpeptidase 39 U/L (5-36); Magnesium 1.5 mg/dL (1.6-2.5); Uric Acid 3.2 mg/dL (2.5-8.0)
[2017-10-20] MEDS: PANTOPRAZOLE 40 MG VIAL IV SCH ×2 (06:42→17:33)
[2017-10-20] MEDS: CEFEPIME 2 GM VIAL IV SCH ×3 (06:42→23:44)
[2017-10-20] MEDS: LEVOTHYROXINE 100 MCG VIAL IV SCH (06:43)
[2017-10-20] MEDS: ACETAMINOPHEN 1,000 MG/100 ML BOTTLE IV PRN ×3 (07:31→19:59)
[2017-10-20] MEDS ORDERED: MAGNESIUM SULFATE 32.48 MEQ in DEXTROSE 5% IN WATER 100 ML IV ONE (07:42)
[2017-10-20] MEDS ORDERED: POTASSIUM CHLORIDE 40 MEQ in DEXTROSE 5% IN WATER 250 ML IV ONE (07:42)
[2017-10-20] MEDS: HYDROmorphone 2 MG/ML SYRINGE IV PRN ×5 (08:48→21:06)
[2017-10-20] MEDS: [UNRECOGNIZED DRUG - REMARK] IV SCH (09:38)
[2017-10-20] MEDS: HEPARIN 5,000 UNIT/ML VIAL SQ SCH ×2 (09:43→21:02)
[2017-10-20] MEDS: CALCIUM CARBONATE 1,250 MG/5 ML ORAL.SUSP PT SCH ×3 (10:02→21:01)
[2017-10-20] MEDS: 0.9 % SODIUM CHLORIDE 10 ML SYRINGE IV SCH ×2 (10:02→21:01)
[2017-10-20] MEDS: LINACLOTIDE 145 MG PO SCH (10:02)
[2017-10-20] MEDS: CALCITRIOL 0.5 MCG CAPSULE PT SCH ×3 (10:02→21:02)
[2017-10-20] MEDS: MULTIVITAMINS,THERAPEUTIC 1 ML ORAL.SOL PO SCH (10:03)
[2017-10-20] MEDS: methylPREDNISolone SOD SUCC 40 MG/ML VIAL IV SCH (10:04)
--- NOTE | 2017-10-20 11:09 | Internal Med Progress Note ---
Medical - PN: Subj Patient information: Note initiated : 10/20/17 at 11:08 am Service Date, if different from initiated Date: [] Patient: Dayanna Stephens a 56 y/o F admitted on 10/03/17 for Abd Pain/ Constipation Post Ostomy/Small Bowel Obst. Chief Complaint: [] Interval history: Ms. Stephens is a 56 year old Female with h/o volvulus of the sigmoid colon, s/ p recent surgery by Dr Currie and was being closely followed in the outpatient clinic, presents today to the ER because of pain in the abdomen x 3 days, pain is sharp in the mid abdomen, non radiating, no aggravating relieving factors, noted that it was progressively getting worse, with some distention. She also had some episodes of sweating and dizziness, she therefore presented to the ER for further evaluation. IN the ER The abdomen x ray/ CT scan showed small bowel obstruction. Patients labs unremarkable, patient has h/o chr hypocalcemia, myasthenia gravis, severe anxiety and depression, osteoarthritis, hypothyroidism, autoimmune polyglandular syndrome, sarcoidosis. She will be admitted to medical floor, Gen Surgery consulting for SBO. Radiology trying to place NG tube, under fluoroscopy. The patient notes she has chr arthritis for which she takes some pain mes She also had some pain in the hypogastric regin, sharp shooting, which was told to in the past as nerve pain, The patient will be admitted to tele for further monitoring and management. Dec 22 Patient seen examined, doing well, some nausea, and her chr pain issues, not no new concerns reported she has NG tube with good drainage, X ray this AM is better Calcium was low, she is on high dose calcitriol replacement, mg is normal Dec 23 Patient seen examined, no acute overnight issues, some nausea, NG tube draining well has low mg and calcium, being replaced X ray shows not much improvement in SBO, plan for mag citrate by Surgery, will see how she does. Dec 24 patient seen examined, no acute overnight issues, has low grade temp, but no obvious source plan to check CXR and X ray abdomen today, check procalcitonin and ua patient now has some improved output in the stoma, with some gas, calcium level is 6.0, replace IV, mg 1.7, replace. Dec 25 patient seen examined, tired and did not talk much was anxious overnight needing ativan, which helped She is moving bowels, patient X ray shows improving sbo plan to give diet via NG tube for now as per surgery, Replace IV calcium fever resolved, procalcitonin neg, ua neg, cxr neg, no e/o infection, monitor Oct 08 Patient seen examined, doing well, SBO improving, pt wanting oral trials Plan to d/c NG tube today and start on liquid diet to see how she progresses, patient aware that she may need Placement of NG tube again if she fails this. Resume oral calcium supplements. Patient otherwise denies any other complaints Tico still low, on IV tico as pt still has intermittent spasms. oct 09 patient seen examined, no acute overnight issues pt tolerating po diet well, on clear liquids, likeliy to be advanced to full liquid now. tico low, replace IV and increase oral replacement to 1000mg tid, repalce mg oral and IV plan for d/c home wihen cleared by surgery Oct 10 patient seen examined, pt had episodes of nausea overnight X ray abdomen shwos recurrence of SBO NG tube was attempted but was not possible, Patient allergic to reglan, started on erythromycin for prokientic effect this AM x ray better, patient no longer has nausea NPO status again, continue with erythromycin, start on linzezz 145 mcg dialy , patients reports this helps with he bowels replace mg and calcium IV Oct 11 Had some flatus from ostomy this afternoon. Up ambulating the halls. Starting to have an appetite and feeling hungry, no nausea. Started on erythromycin and Linzess, also receiving milk of magnesia. Still requiring electrolyte replacement. October 12 Had no further flatus yesterday. Dr. Pulliam as ordered TPN to start. Received milk of magnesia and bisacodyl per ostomy. At the time of my exam, starting to develop bowel sounds. Continues on erythromycin October 13 Was started on small amounts of clear fluids on an hourly basis today. Has tolerated that well. Passing stool and ostomy. Notices continued bowel sounds.correction from previously, and Linzess has been held for the past several days. Needed repeated calcium infusion today. Hopefully we'll be able to start by mouth meds tomorrow. Oct 14 Continues to tolerate clear fluids. Spirits are good because she is tolerating oral intake and continues to have flatus and stool via her ostomy. No nausea or vomiting. No abdominal pain. Oct 15 Continues to tolerate diet, up to full liquids. Transitioned over to oral prescriptions today. Has continued to ambulate in the cain. TPN is being weaned to off overnight. Suspect she should be able to go home soon, possibly tomorrow. Back on her usual motility agents. Oct 16 Was doing well up until last evening, when took ibuprofen for pain. Developed nausea and vomiting. Has been nauseated all night. Some epigastric pain, otherwise no significant abdominal pain. Having loose ostomy output, C. difficile was sent which was negative. Still having ostomy output and flatus. Still feeling nauseated this morning. Zofran not helping. Received one dose of Phenergan which did help. We'll plan to start fluids, stop nonsteroidals, and Compazine or Phenergan for nausea today. We'll need to continue to monitor. TPN is now been weaned to off overnight. Oct 17 Patient seen examined, yesterday, plan was to start on pyridostigmine for myasthenia related pseudoobtruction, one dose given, but patient labs came back showing sepsis syndrome, with leucocytosis, and lactic acidosis, and worsening renal function. medication stopped promplty CT scan of abdomen done shows SBO, cultures sent IV vanco, and cefepime and flagyl started cxr is neg, ua is neg Etiology of leucocytosis is likely GI related transmigration from Bowels. Surgery planning to take pt to the OR today, Prednisone and levothyroxine switched to IV Oct 18 patient seen examined, no acute overnight issues, NG tube s/p surgery for SBO, band noted, Patient hemodynamically much stable today, lacte neg, wbc trending down, good output via NG tube. On IV fluids Calcium dropped again, replace IV. replace Mg. given ongoing NG suctin, add KCL to replacement too xfer to med surg status. d/c vanco no suspicion for Gram positives, on cefepime and flagyl to continue Oct 19 patient seen examined, no acute overnight issues, abdomen is sore, but pain controlled, no output from stoma pt calcium still low stat on high dose of PT calcitirol as well as oral calcium and IV calcium replacements. higher than usual doses used as pt has NG suction, which will limit some absorbtion of meds hb dropped to 8.7 no e/o overt bleed pt otherwise doing well. Oct 20 Patient seen examined, no acute overnight events, patient still has some sorness in abdomen, but no other issues vitals stable NG tube still in place Calcium better today, continue with high dose replacements. NO output from stoma yet, continue conserative management d/c mitchell Hb 9.4, stable Pertinent ROS: Denies headache, dizziness Denies chest pain, palpitations Denies cough or shortness of breath Denies abdominal pain, some nausea, no vomiting. - Constitutional Vitals: Vital Signs Temp Pulse Resp BP Pulse Ox 98.3 F 79 12 143/83 98 10/20/17 08:00 10/18/17 16:00 10/20/17 08:00 10/20/17 08:00 10/20/17 08:00 Period Temp Pulse Resp BP Sys/Archuleta Pulse Ox Last 24 Hr 97.7 F-99.3 F - 132-143/75-88 95-98 Intake and Output 10/19/17 10/20/17 10/20/17 21:59 05:59 13:59 Intake Total 2299 / 2299 540 / 540 200 / 200 Output Total 2550 / 2550 3900 / 3900 550 / 550 Balance -251 / -251 -3360 / -3360 -350 / -350 Weight 231 lb 231 lb Intake & Output: Intake & Output 10/19/17 10/20/17 10/20/17 21:59 05:59 13:59 Intake Total 2299 / 2299 540 / 540 200 / 200 Output Total 2550 / 2550 3900 / 3900 550 / 550 Balance -251 / -251 -3360 / -3360 -350 / -350 Weight 231 lb 231 lb Intake: IV 2299 / 2299 100 / 100 200 / 200 Oral 300 / 300 GI Tube Flush 90 / 90 IV - Manual Only 50 / 50 Output: Gastric Drainage 800 / 800 750 / 750 Right Nare 800 / 800 750 / 750 Urine Catheter Amount 1750 / 1750 3150 / 3150 550 / 550 Exam: Constitutional; Afebrile, cooperative, alert, not in distress. Eyes- No icterus, , No periorbital swelling Ears- Ext ear normal, hearing normal to conversation. Neck- Midline trachea, supple Respiratory system: Air Entry equal on both sides, No crackles or wheezing, no rhonchi. CVS- Rate rhythm regular, S1,S2 heard, no gallop, no rub. Abdomen- Soft nontender abdomen, no organomegaly, no tenderness, no guarding or rigidity, [employer]- AOOx3, moving all extremities, no gross focal deficit noted. Medical - PN: Obj Da - Labs CBC & Chem 7: 10/20/17 03:47 10/20/17 03:47 Labs: Abnormal Lab Results 10/20/17 10/20/17 10/19/17 03:47 03:47 13:49 WBC RBC 3.15 L Hgb 9.4 L Hct 28.2 L MPV Gran % Lymph % (Auto) Gran # Lymph # (Auto) [place] # (Auto) PT Creatinine 0.5 L 0.5 L Glucose 124 H 201 H Calcium 6.3 L Ionized Calcium Jeannie 0.82 L Phosphorus Magnesium 1.5 L GGT 39 H ALT Lactate Dehydrogenase 279 H Total Protein 5.2 L Albumin 2.9 L Globulin Triglycerides 319 H 10/19/17 10/19/17 10/19/17 07:49 04:00 04:00 WBC RBC 2.97 L Hgb 8.7 L Hct 26.8 L MPV 7.3 L Gran % Lymph % (Auto) 15.4 L Gran # Lymph # (Auto) 1.4 L [place] # (Auto) 1.0 H PT Creatinine 0.5 L Glucose 128 H Calcium 5.5 L* Ionized Calcium Jeannie 0.75 L Phosphorus 2.2 L Magnesium GGT ALT 42 H Lactate Dehydrogenase 302 H Total Protein 4.7 L Albumin 2.7 L Globulin 2.0 L Triglycerides 283 H 10/18/17 10/18/17 10/17/17 07:23 07:23 13:25 WBC 13.3 H RBC 3.22 L Hgb 9.3 L Hct 28.8 L MPV 6.7 L Gran % 85.9 H Lymph % (Auto) 5.9 L Gran # 11.5 H Lymph # (Auto) 0.8 L [place] # (Auto) 1.0 H PT 14.6 H Creatinine 0.5 L Glucose 133 H Calcium 5.8 L* Ionized Calcium Jeannie Phosphorus Magnesium 1.5 L GGT 40 H ALT 52 H Lactate Dehydrogenase 280 H Total Protein 4.7 L Albumin 2.7 L Globulin 2.0 L Triglycerides 401 H Meds: Medications Albuterol Sulfate (Ventolin) 2.5 mg NEB Q2HP PRN PRN Reason: Shortness Of Breath Calcitriol (Rocaltrol) 1 mcg PT TID [facility] Last Admin: 10/20/17 10:02 Dose: 1 mcg Calcium Carbonate/Glycine (Calcium Carbonate) 1,000 mg PT TID [facility] Last Admin: 10/20/17 10:02 Dose: 1,000 mg Cefepime HCl (Maxipime) 2 gm IV Q8H [facility] Last Admin: 10/20/17 06:42 Dose: 2 gm Dextrose (Dextrose 50%) 50 ml IV UD PRN PRN Reason: Hypoglycemia Diagnostic Test (Pha) (Accu-Chek) 1 each FS Q6H [facility] Last Admin: 10/20/17 05:39 Dose: 1 each Heparin Sodium (Porcine) (Heparin) 5,000 unit SQ Q12 [facility] Last Admin: 10/20/17 09:43 Dose: 5,000 unit Heparin Sodium (Porcine) (Heparin Flush) 2 ml IV Q12 [facility] Last Admin: 10/20/17 10:04 Dose: 2 ml Hydromorphone HCl (Dilaudid) 0.5 mg IV Q2HP PRN PRN Reason: PAIN LEVEL > 6 Last Admin: 10/20/17 08:48 Dose: 0.5 mg Fat Emulsion Intravenous (Intralipid 20%) 250 mls @ 25 mls/hr IV [id number]@1600 [facility] Last Infusion: 10/19/17 02:30 Dose: Infused Metronidazole (Flagyl) 500 mg in 100 mls @ 100 mls/hr IV Q8H [facility] Last Infusion: 10/20/17 07:20 Dose: Infused Acetaminophen (Ofirmev) 1,000 mg in 100 mls @ 200 mls/hr IV Q6HP PRN PRN Reason: PAIN/FEVER > 101 Last Infusion: 10/20/17 08:06 Dose: Infused Calcium Gluconate 9.3 meq/Multivitamins/Minerals 10 ml/Selenium 60 mcg/ Potassium Chloride 40 meq/ Potassium Phosphate 40 meq/ Magnesium Sulfate 16.24 meq/ Amino Acids 2,064.5909 mls @ 80 mls/hr IV Q24H [facility] Last Admin: 10/20/17 09:38 Dose: 80 mls/hr Potassium Chloride 40 meq/ (Dextrose) 270 mls @ 67.5 mls/hr IV ONCE ONE Stop: 10/20/17 11:41 Last Admin: 10/20/17 09:20 Dose: 67.5 mls/hr Insulin Human Lispro (Humalog) 0 unit SQ Q6 [facility] PRN Reason: Protocol Last Admin: 10/20/17 05:39 Dose: 2 unit Levothyroxine Sodium (Synthroid) 125 mcg IV QAMAC [facility] Last Admin: 10/20/17 06:43 Dose: 125 mcg Lorazepam (Ativan) 0.5 mg IV Q6HP PRN PRN Reason: ANXIETY/SEDATION Last Admin: 10/20/17 00:13 Dose: 0.5 mg Methylprednisolone Sodium Succinate (Solu-Medrol) 20 mg IV DAILY [facility] Last Admin: 10/20/17 10:04 Dose: 20 mg Multivitamins (Thera-Plus) 5 ml PO DAILY [facility] Last Admin: 10/20/17 10:03 Dose: Not Given Naloxone HCl (Narcan) 0.1 mg IV Q2MIN PRN PRN Reason: Opiate Reversal Linaclotide (Linzess () 145mg Cap) 1 dose PO DAILY [facility] Last Admin: 10/20/17 10:02 Dose: Not Given Ondansetron HCl (Zofran) 4 mg IV Q6HP PRN PRN Reason: Nausea And Vomiting Last Admin: 10/18/17 16:32 Dose: 4 mg Pantoprazole Sodium (Protonix) 40 mg IV BIDAC [facility] Last Admin: 10/20/17 06:42 Dose: 40 mg Phenol (Chloroseptic [place]) 5 spray SSP Q2HP PRN PRN Reason: Sore Throat Prochlorperazine Edisylate (Compazine) 10 mg IV Q6HP PRN PRN Reason: Nausea And Vomiting Last Admin: 10/20/17 00:00 Dose: 10 mg Promethazine HCl (Phenergan) 12.5 mg IV Q4HP PRN PRN Reason: Nausea And Vomiting Last Admin: 10/19/17 20:10 Dose: 12.5 mg Sodium Chloride (Saline Flush) 10 ml IV Q12 [facility] Last Admin: 10/20/17 10:02 Dose: 10 ml - ABG Interpretation ABG results: 10/17/17 08:03 ABG Methemoglobin 0.3 L VBG pH 7.37 VBG pCO2 35.1 L VBG pO2 138 H VBG HCO3 19.7 L VBG Total CO2 20.8 L VBG O2 Saturation 96.1 H VBG Base Excess -4.9 L Medical - PN: A/P - Time Spent With Patient Total time spent is greater than 50% in coordination of care (as documented) at patient's floor/unit and/or counseling patient: - Narrative A/P Narrative: A/P Small bowel obstruction: Recurrence of SBO (vs. dysmotility) after removal of NG tube. Is/p surgery, NG tube in place. Leucocytosis/ lactic Acidosis: resolved, on abx total of 7 days planned, microbiology neg growth, anemia hb 9.4, due to infection, recent surgery, no overt bleed, monitor. NPO status: has been NPO for quite a while, started back on TPN, tolerating it well, Fever: resolved, no /o infection. Hypocalcemia: on high dose oral calcitriol and calcium carbonate via NG tube, monitor. Hypomagnesemia: replace IV try to keep mg > 2.0, start on mg oxide when able. Myasthenia gravis/ Sarcoidosis: On steroids prednisone 20mg qd, changed to IV solumedrol, but back to PO on Sat. High risk of osteoporosis, pt also needs PCP prophylaxis at this dose if going to be senior care. She will be advised to discuss this with her PCP Morbid Obesity: PCP to follow Tachycardia, secondary to anxiety/ GI issues, resolved now, (has been worked up in the past, and her HR improves with improvement in GI symptoms,: HR stable presently, TSH low but T3 and T4 normal. Sepsis also playing a role now. Hypothyroidism : low TSH, normal t3, t4, resume dose once able to tolerate po. Osteoarthritis: Prn IV tylenol. Hep sq for DVT prophylaxis Full code. Medical - PN: Qual - VTE Deep Vein Thrombosis/Pulmonary Embolism Present on Admission: No
--- NOTE | 2017-10-20 12:37 | General Surgery Progress Note ---
Subjective Patient reports: feels better, pain is less (Is looks like to go what we can do it with the left she would have to have a seizure but based on her side is is probably the gallbladder should not be much), no flatus, no bowel movement, afebrile Narrative: Note initiated : 10/20/17 at 12:34 pm Service Date, if different from initiated Date: [] Patient: Dayanna Stephens 56 y/o F admitted on 10/03/17 for Abd Pain/ Constipation Post Ostomy/Small Bowel Obst. Chief Complaint: [. Patient is doing well. her pain is well controlled . she denies nausea. She still has not had flatus or bowel movement output through her stoma. She does not have significant abdominal distention. The x-rays done this morning shows dilated loops of small bowel but with gas also in her colon. Discussed with her the need to give her milk of magnesia to stimulate the colon evacuation. This will be given 4 doses.] Objective Temp Pulse Resp BP Pulse Ox 98.1 F 79 16 135/64 97 10/20/17 11:48 10/18/17 16:00 10/20/17 11:48 10/20/17 11:48 10/20/17 11:48 - Additional Data Intake & Output - Last 24 hours: Intake & Output 10/18/17 10/19/17 10/20/17 10/21/17 05:59 05:59 05:59 05:59 Intake Total 8850 / 8850 4498 / 4498 3209 / 3209 200 / 200 Output Total 1913 / 1913 4340 / 4340 6450 / 6450 550 / 550 Balance 6937 / 6937 158 / 158 -3241 / -3241 -350 / -350 Weight 226 lb 3 oz 230 lb 6.4 oz 231 lb - General physical appearance well developed, well nourished, no distress, severe distress - Eyes PERRL, normal ocular movement - ENT normal pinna, normal nares, normal mucosa, no hearing loss, no congestion - Neck no masses, no venous distension - Respiratory normal expansion, normal respiratory effort, clear to percussion, clear to auscultation - Cardiovascular Cardiovascular exam: Present: normal rate and rhythm, RRR, +S1, +S2. Absent: JVD - Abdomen tender (Mild tenderness of incision), bowel sounds ( hypoactive bowel sounds), surgical scars (none), masses (none) - Integumentary no rash, no growths, no abnormal pigmentation - Neurologic normal coordination, normal sensation - Musculoskeletal normal gait, normal posture - Psychiatric oriented to time, oriented to person, oriented to place, speech is normal, memory intact - Labs 10/20/17 03:47 10/20/17 03:47 Diabetes panel 10/19/17 10/20/17 Range/Units 13:49 03:47 Sodium 140 143 (133-145) mmol/L Potassium 4.0 3.6 (3.3-5.1) mmol/L Chloride 106 103 (96-108) mmol/L Carbon Dioxide 22 27 (22-30) mmol/L BUN 10 10 (6-20) mg/dl Creatinine 0.5 L 0.5 L (0.6-1.1) mg/dl Glucose 201 H 124 H (70-105) mg/dL Calcium 6.3 L (8.6-10.4) mg/dl AST 16 (0-37) U/l ALT 37 (0-40) U/l Alkaline Phosphatase 56 (39-117) U/L Total Protein 5.2 L (5.9-8.4) gm/dL Albumin 2.9 L (3.2-5.2) gm/dL Triglycerides 319 H (<150) mg/dl Calcium panel 10/19/17 10/20/17 Range/Units 13:49 03:47 Calcium 6.3 L (8.6-10.4) mg/dl Ionized Calcium Jeannie 0.82 L (1.16-1.32) mmol/L Phosphorus 2.8 (2.7-4.5) mg/dL Albumin 2.9 L (3.2-5.2) gm/dL Pituitary panel 10/19/17 10/20/17 Range/Units 13:49 03:47 Sodium 140 143 (133-145) mmol/L Potassium 4.0 3.6 (3.3-5.1) mmol/L Chloride 106 103 (96-108) mmol/L Carbon Dioxide 22 27 (22-30) mmol/L BUN 10 10 (6-20) mg/dl Creatinine 0.5 L 0.5 L (0.6-1.1) mg/dl Glucose 201 H 124 H (70-105) mg/dL Calcium 6.3 L (8.6-10.4) mg/dl Adrenal panel 10/19/17 10/20/17 Range/Units 13:49 03:47 Sodium 140 143 (133-145) mmol/L Potassium 4.0 3.6 (3.3-5.1) mmol/L Chloride 106 103 (96-108) mmol/L Carbon Dioxide 22 27 (22-30) mmol/L BUN 10 10 (6-20) mg/dl Creatinine 0.5 L 0.5 L (0.6-1.1) mg/dl Glucose 201 H 124 H (70-105) mg/dL Calcium 6.3 L (8.6-10.4) mg/dl Total Bilirubin < 0.2 (0.0-1.0) mg/dL AST 16 (0-37) U/l ALT 37 (0-40) U/l Alkaline Phosphatase 56 (39-117) U/L Total Protein 5.2 L (5.9-8.4) gm/dL Albumin 2.9 L (3.2-5.2) gm/dL Assessment and Plan (1) Chronic intestinal pseudo-obstruction Status: Acute Assessment and plan: continue present supportive care Start TPN Replace calcium and phosphorus Milk of magnesia 30 cc every 4 hours 4 doses clamp nasogastric tube Current Visit: Yes (2) Hypothyroidism Status: Acute Current Visit: No (3) Myasthenia gravis Status: Acute Current Visit: No - Time Spent With Patient Total time spent is greater than 50% in coordination of care (as documented) at patient's floor/unit and/or counseling patient:
[2017-10-20] MEDS: MAGNESIUM HYDROXIDE 30 ML ORAL.SUSP PO SCH ×4 (14:49→23:45)
--- NOTE | 2017-10-20 17:39 | XRay Report ---
CLINICAL INFORMATION: Small bowel obstruction follow-up COMPARISON: None. FINDINGS: NG tube been replaced and the tip overlies the gastric antrum region. Stomach and upper/mid small bowel are partially decompressed, but remain moderately dilated with air-fluid levels. Small amounts of gas seen within the colon. Findings are compatible with improving distal small bowel obstruction. No free air or soft tissue mass IMPRESSION: Improving distal partial small bowel obstruction. Interpreted and Authenticated by: All Lundberg 10/20/17
[2017-10-20] MEDS: PHENOL/SODIUM PHENOLATE 5 SPRAY BOTTLE 180ML SSP PRN ×2 (19:38→21:06)
[2017-10-21] MEDS: HYDROmorphone 2 MG/ML SYRINGE IV PRN ×8 (00:05→20:18)
[2017-10-21] MEDS: ACETAMINOPHEN 1,000 MG/100 ML BOTTLE IV PRN ×3 (03:26→18:53)
[2017-10-21] MEDS: CEFEPIME 2 GM VIAL IV SCH ×3 (05:09→22:12)
[2017-10-21 05:25] LABS: Basophils # (Auto) 0 K/mcL (0.0-0.3); Basophils % (Auto) 0.4 % (0.0-2.0); Eosinophils # (Auto) 0.3 K/mcL (0.0-0.7); Eosinophils % (Auto) 3.4 % (0.0-7.0); Granulocytes % (Auto) 62.4 % (38.0-78.0); Lymphocytes # (Auto) 2.1 K/mcL (1.5-4.8); Lymphocytes % (Auto) 23.7 % (15.5-49.0); Mean Cell Volume 90.5 fL (80.0-100.0); Mean Corpuscular HGB Conc 32.9 g/dL (31.0-36.0); Mean Corpuscular Hemoglobin 29.8 pg (26.0-34.0); Monocytes # (Auto) 0.9 K/mcL (0.1-0.9); Monocytes % (Auto) 10.1 % (1.0-12.0); Platelet Count 310 K/mcL (140-440); RBC 3.41 M/mcL (4.00-5.20); Red Cell Distribution Width 14.1 % (11.5-14.5)
[2017-10-21] MEDS: metroNIDAZOLE 500 MG/100 ML BAG IV SCH ×3 (05:27→22:15)
[2017-10-21 05:44] LABS: Prealbumin 24.1 mg/dl (20-40)
[2017-10-21] MEDS: INSULIN LISPRO 1 UNIT/0.01 ML UNIT SQ SCH ×3 (05:46→17:26)
[2017-10-21 06:06] LABS: ALT/SGPT 36 U/l (0-40); Albumin 3.1 gm/dL (3.2-5.2); Albumin/Globulin Ratio 1.3 (1.0-2.3); Alkaline Phosphatase 65 U/L (39-117); Bilirubin,Direct < 0.2 mg/dL (0.0-0.3); Blood Urea Nitrogen 14 mg/dl (6-20); Gamma Glutamyl Transpeptidase 47 U/L (5-36); Magnesium 2.2 mg/dL (1.6-2.5); Uric Acid 2.3 mg/dL (2.5-8.0)
[2017-10-21] MEDS: LEVOTHYROXINE 100 MCG VIAL IV SCH (07:47)
[2017-10-21] MEDS: PANTOPRAZOLE 40 MG VIAL IV SCH ×2 (07:47→17:08)
[2017-10-21] MEDS: CALCITRIOL 0.5 MCG CAPSULE PT SCH ×3 (09:00→22:14)
[2017-10-21] MEDS: CALCIUM CARBONATE 1,250 MG/5 ML ORAL.SUSP PT SCH ×3 (09:00→22:11)
[2017-10-21] MEDS: MULTIVITAMINS,THERAPEUTIC 1 ML ORAL.SOL PO SCH (09:01)
[2017-10-21] MEDS: 0.9 % SODIUM CHLORIDE 10 ML SYRINGE IV SCH ×2 (09:01→22:14)
[2017-10-21] MEDS: LINACLOTIDE 145 MG PO SCH (09:01)
[2017-10-21] MEDS: methylPREDNISolone SOD SUCC 40 MG/ML VIAL IV SCH (09:03)
[2017-10-21] MEDS: HEPARIN 5,000 UNIT/ML VIAL SQ SCH ×2 (09:03→22:12)
[2017-10-21] MEDS ORDERED: [UNRECOGNIZED DRUG - REMARK] IV SCH (10:00)
[2017-10-21] MEDS: [UNRECOGNIZED DRUG - REMARK] IV SCH (10:03)
--- NOTE | 2017-10-21 12:15 | Internal Med Progress Note ---
Medical - PN: Subj Patient information: Note initiated : 10/21/17 at 12:12 pm Service Date, if different from initiated Date: [] Patient: Dayanna Stephens a 56 y/o F admitted on 10/03/17 for Abd Pain/ Constipation Post Ostomy/Small Bowel Obst. Chief Complaint: [] Interval history: Ms. Stephens is a 56 year old Female with h/o volvulus of the sigmoid colon, s/ p recent surgery by Dr Currie and was being closely followed in the outpatient clinic, presents today to the ER because of pain in the abdomen x 3 days, pain is sharp in the mid abdomen, non radiating, no aggravating relieving factors, noted that it was progressively getting worse, with some distention. She also had some episodes of sweating and dizziness, she therefore presented to the ER for further evaluation. IN the ER The abdomen x ray/ CT scan showed small bowel obstruction. Patients labs unremarkable, patient has h/o chr hypocalcemia, myasthenia gravis, severe anxiety and depression, osteoarthritis, hypothyroidism, autoimmune polyglandular syndrome, sarcoidosis. She will be admitted to medical floor, Gen Surgery consulting for SBO. Radiology trying to place NG tube, under fluoroscopy. The patient notes she has chr arthritis for which she takes some pain mes She also had some pain in the hypogastric regin, sharp shooting, which was told to in the past as nerve pain, The patient will be admitted to tele for further monitoring and management. Dec 22 Patient seen examined, doing well, some nausea, and her chr pain issues, not no new concerns reported she has NG tube with good drainage, X ray this AM is better Calcium was low, she is on high dose calcitriol replacement, mg is normal Dec 23 Patient seen examined, no acute overnight issues, some nausea, NG tube draining well has low mg and calcium, being replaced X ray shows not much improvement in SBO, plan for mag citrate by Surgery, will see how she does. Dec 24 patient seen examined, no acute overnight issues, has low grade temp, but no obvious source plan to check CXR and X ray abdomen today, check procalcitonin and ua patient now has some improved output in the stoma, with some gas, calcium level is 6.0, replace IV, mg 1.7, replace. Dec 25 patient seen examined, tired and did not talk much was anxious overnight needing ativan, which helped She is moving bowels, patient X ray shows improving sbo plan to give diet via NG tube for now as per surgery, Replace IV calcium fever resolved, procalcitonin neg, ua neg, cxr neg, no e/o infection, monitor Oct 08 Patient seen examined, doing well, SBO improving, pt wanting oral trials Plan to d/c NG tube today and start on liquid diet to see how she progresses, patient aware that she may need Placement of NG tube again if she fails this. Resume oral calcium supplements. Patient otherwise denies any other complaints Lyle still low, on IV lyle as pt still has intermittent spasms. oct 09 patient seen examined, no acute overnight issues pt tolerating po diet well, on clear liquids, likeliy to be advanced to full liquid now. lyle low, replace IV and increase oral replacement to 1000mg tid, repalce mg oral and IV plan for d/c home wihen cleared by surgery Oct 10 patient seen examined, pt had episodes of nausea overnight X ray abdomen shwos recurrence of SBO NG tube was attempted but was not possible, Patient allergic to reglan, started on erythromycin for prokientic effect this AM x ray better, patient no longer has nausea NPO status again, continue with erythromycin, start on linzezz 145 mcg dialy , patients reports this helps with he bowels replace mg and calcium IV Oct 11 Had some flatus from ostomy this afternoon. Up ambulating the halls. Starting to have an appetite and feeling hungry, no nausea. Started on erythromycin and Linzess, also receiving milk of magnesia. Still requiring electrolyte replacement. October 12 Had no further flatus yesterday. Dr. Pulliam as ordered TPN to start. Received milk of magnesia and bisacodyl per ostomy. At the time of my exam, starting to develop bowel sounds. Continues on erythromycin October 13 Was started on small amounts of clear fluids on an hourly basis today. Has tolerated that well. Passing stool and ostomy. Notices continued bowel sounds.correction from previously, and Linzess has been held for the past several days. Needed repeated calcium infusion today. Hopefully we'll be able to start by mouth meds tomorrow. Oct 14 Continues to tolerate clear fluids. Spirits are good because she is tolerating oral intake and continues to have flatus and stool via her ostomy. No nausea or vomiting. No abdominal pain. Oct 15 Continues to tolerate diet, up to full liquids. Transitioned over to oral prescriptions today. Has continued to ambulate in the cain. TPN is being weaned to off overnight. Suspect she should be able to go home soon, possibly tomorrow. Back on her usual motility agents. Oct 16 Was doing well up until last evening, when took ibuprofen for pain. Developed nausea and vomiting. Has been nauseated all night. Some epigastric pain, otherwise no significant abdominal pain. Having loose ostomy output, C. difficile was sent which was negative. Still having ostomy output and flatus. Still feeling nauseated this morning. Zofran not helping. Received one dose of Phenergan which did help. We'll plan to start fluids, stop nonsteroidals, and Compazine or Phenergan for nausea today. We'll need to continue to monitor. TPN is now been weaned to off overnight. Oct 17 Patient seen examined, yesterday, plan was to start on pyridostigmine for myasthenia related pseudoobtruction, one dose given, but patient labs came back showing sepsis syndrome, with leucocytosis, and lactic acidosis, and worsening renal function. medication stopped promplty CT scan of abdomen done shows SBO, cultures sent IV vanco, and cefepime and flagyl started cxr is neg, ua is neg Etiology of leucocytosis is likely GI related transmigration from Bowels. Surgery planning to take pt to the OR today, Prednisone and levothyroxine switched to IV Oct 18 patient seen examined, no acute overnight issues, NG tube s/p surgery for SBO, band noted, Patient hemodynamically much stable today, lacte neg, wbc trending down, good output via NG tube. On IV fluids Calcium dropped again, replace IV. replace Mg. given ongoing NG suctin, add KCL to replacement too xfer to med surg status. d/c vanco no suspicion for Gram positives, on cefepime and flagyl to continue Oct 19 patient seen examined, no acute overnight issues, abdomen is sore, but pain controlled, no output from stoma pt calcium still low stat on high dose of PT calcitirol as well as oral calcium and IV calcium replacements. higher than usual doses used as pt has NG suction, which will limit some absorbtion of meds hb dropped to 8.7 no e/o overt bleed pt otherwise doing well. Oct 20 Patient seen examined, no acute overnight events, patient still has some sorness in abdomen, but no other issues vitals stable NG tube still in place Calcium better today, continue with high dose replacements. NO output from stoma yet, continue conserative management d/c mitchell Hb 9.4, stable Oct 21 patient seen examined, sitting comfortably in chair, feelign good today, had some stool output in the stoma Xray abdomen yesterday showed resolving SBO Patient feels hungry which is a good sign the pateitn calcium is also improving. The patient is yet to be seen by Delmy to see if food can be s tarted, still has NG tube in place, Still is on TPN for nutrition. Pertinent ROS: Denies headache, dizziness Denies chest pain, palpitations Denies cough or shortness of breath Denies abdominal pain, nausea or vomiting. - Constitutional Vitals: Vital Signs Temp Pulse Resp BP Pulse Ox 98.6 F 80 18 144/98 98 10/21/17 08:00 10/21/17 08:00 10/21/17 08:00 10/21/17 08:00 10/21/17 08:00 Period Temp Pulse Resp BP Sys/Archuleta Pulse Ox Last 24 Hr 98.4 F-98.9 F 76-85 16-20 138-176/77-100 94-98 Intake and Output 10/20/17 10/21/17 10/21/17 21:59 05:59 13:59 Intake Total 630 / 630 200 / 200 2152 Output Total 1450 / 1450 875 / 875 250 / 250 Balance -820 / -820 -675 / -675 1902 Weight 221 lb 6 oz Intake & Output: Intake & Output 10/20/17 10/21/17 10/21/17 21:59 05:59 13:59 Intake Total 630 / 630 200 / 200 2152 Output Total 1450 / 1450 875 / 875 250 / 250 Balance -820 / -820 -675 / -675 1902 Weight 221 lb 6 oz Intake: IV 300 / 300 200 / 200 2152 Calcium Gluconate 9.3 Meq 1952 Infuvite Adult 10 ml Selenium 60 Mcg Potassium Chloride 40 Meq Potassium Phosphate 40 Meq Magnesium Sulfate 16.24 Meq In Clinimix 5%-20% Solution 2,000 ml @ 80 mls/hr IV Q24H [facility] Rx#: [id number] Oral 0 / 0 GI Tube Flush 230 / 230 IV - Manual Only 100 / 100 Output: Gastric Drainage 225 / 225 Left Nare 225 / 225 Void Amount 1225 / 1225 875 / 875 250 / 250 Stool 0 / 0 Other: # Voids 1 Exam: Constitutional; Afebrile, cooperative, alert, not in distress. Eyes- No icterus, , No periorbital swelling Ears- Ext ear normal, hearing normal to conversation. Neck- Midline trachea, supple Respiratory system: Air Entry equal on both sides, No crackles or wheezing, no rhonchi. CVS- Rate rhythm regular, S1,S2 heard, no gallop, no rub. Abdomen- Soft nontender abdomen, no organomegaly, no tenderness, no guarding or rigidity, BOTTLE BLOWER- AOOx3, moving all extremities, no gross focal deficit noted. Medical - PN: Obj Da - Labs CBC & Chem 7: 10/21/17 03:40 10/21/17 03:40 Labs: Abnormal Lab Results 10/21/17 10/21/17 10/20/17 03:40 03:40 03:47 RBC 3.41 L Hgb 10.1 L Hct 30.8 L MPV Lymph % (Auto) Lymph # (Auto) Forrest # (Auto) Creatinine 0.5 L 0.5 L Glucose 150 H 124 H Uric Acid 2.3 L Calcium 6.7 L 6.3 L Ionized Calcium Jeannie Phosphorus Magnesium 1.5 L GGT 47 H 39 H ALT Lactate Dehydrogenase 304 H 279 H Total Protein 5.4 L 5.2 L Albumin 3.1 L 2.9 L Globulin Triglycerides 250 H 319 H 10/20/17 10/19/17 10/19/17 03:47 13:49 07:49 RBC 3.15 L Hgb 9.4 L Hct 28.2 L MPV Lymph % (Auto) Lymph # (Auto) Forrest # (Auto) Creatinine 0.5 L Glucose 201 H Uric Acid Calcium Ionized Calcium Jeannie 0.82 L 0.75 L Phosphorus Magnesium GGT ALT Lactate Dehydrogenase Total Protein Albumin Globulin Triglycerides 10/19/17 10/19/17 04:00 04:00 RBC 2.97 L Hgb 8.7 L Hct 26.8 L MPV 7.3 L Lymph % (Auto) 15.4 L Lymph # (Auto) 1.4 L Forrest # (Auto) 1.0 H Creatinine 0.5 L Glucose 128 H Uric Acid Calcium 5.5 L* Ionized Calcium Jeannie Phosphorus 2.2 L Magnesium GGT ALT 42 H Lactate Dehydrogenase 302 H Total Protein 4.7 L Albumin 2.7 L Globulin 2.0 L Triglycerides 283 H Meds: Medications Albuterol Sulfate (Ventolin) 2.5 mg NEB Q2HP PRN PRN Reason: Shortness Of Breath Calcitriol (Rocaltrol) 1 mcg PT TID [facility] Last Admin: 10/21/17 09:00 Dose: 1 mcg Calcium Carbonate/Glycine (Calcium Carbonate) 1,000 mg PT TID [facility] Last Admin: 10/21/17 09:00 Dose: 1,000 mg Cefepime HCl (Maxipime) 2 gm IV Q8H [facility] Last Admin: 10/21/17 05:09 Dose: 2 gm Dextrose (Dextrose 50%) 50 ml IV UD PRN PRN Reason: Hypoglycemia Diagnostic Test (Pha) (Accu-Chek) 1 each FS Q6H [facility] Last Admin: 10/21/17 05:46 Dose: 1 each Heparin Sodium (Porcine) (Heparin) 5,000 unit SQ Q12 [facility] Last Admin: 10/21/17 09:03 Dose: 5,000 unit Heparin Sodium (Porcine) (Heparin Flush) 2 ml IV Q12 [facility] Last Admin: 10/21/17 09:03 Dose: 2 ml Hydromorphone HCl (Dilaudid) 0.5 mg IV Q2HP PRN PRN Reason: PAIN LEVEL > 6 Last Admin: 10/21/17 11:55 Dose: 0.5 mg Fat Emulsion Intravenous (Intralipid 20%) 250 mls @ 25 mls/hr IV [id number]@1600 [facility] Last Infusion: 10/19/17 02:30 Dose: Infused Metronidazole (Flagyl) 500 mg in 100 mls @ 100 mls/hr IV Q8H [facility] Last Infusion: 10/21/17 07:47 Dose: Infused Acetaminophen (Ofirmev) 1,000 mg in 100 mls @ 200 mls/hr IV Q6HP PRN PRN Reason: PAIN/FEVER > 101 Last Infusion: 10/21/17 11:56 Dose: Infused Calcium Gluconate 9.3 meq/Multivitamins/Minerals 10 ml/Selenium 60 mcg/ Potassium Chloride 60 meq/ Potassium Phosphate 20 meq/ Magnesium Sulfate 16.24 meq/ Amino Acids 2,070.0455 mls @ 80 mls/hr IV Q24H [facility] Last Admin: 10/21/17 10:03 Dose: 80 mls/hr Insulin Human Lispro (Humalog) 0 unit SQ Q6 [facility] PRN Reason: Protocol Last Admin: 10/21/17 05:46 Dose: 4 unit Levothyroxine Sodium (Synthroid) 125 mcg IV QAMAC [facility] Last Admin: 10/21/17 07:47 Dose: 125 mcg Lorazepam (Ativan) 0.5 mg IV Q6HP PRN PRN Reason: ANXIETY/SEDATION Last Admin: 10/20/17 21:05 Dose: 0.5 mg Methylprednisolone Sodium Succinate (Solu-Medrol) 20 mg IV DAILY [facility] Last Admin: 10/21/17 09:03 Dose: 20 mg Multivitamins (Thera-Plus) 5 ml PO DAILY [facility] Last Admin: 10/21/17 09:01 Dose: Not Given Naloxone HCl (Narcan) 0.1 mg IV Q2MIN PRN PRN Reason: Opiate Reversal Linaclotide (Linzess () 145mg Cap) 1 dose PO DAILY [facility] Last Admin: 10/21/17 09:01 Dose: Not Given Ondansetron HCl (Zofran) 4 mg IV Q6HP PRN PRN Reason: Nausea And Vomiting Last Admin: 10/18/17 16:32 Dose: 4 mg Pantoprazole Sodium (Protonix) 40 mg IV BIDAC [facility] Last Admin: 10/21/17 07:47 Dose: 40 mg Phenol (Chloroseptic Ashton) 5 spray SSP Q2HP PRN PRN Reason: Sore Throat Last Admin: 10/20/17 21:06 Dose: 5 spray Prochlorperazine Edisylate (Compazine) 10 mg IV Q6HP PRN PRN Reason: Nausea And Vomiting Last Admin: 10/20/17 00:00 Dose: 10 mg Promethazine HCl (Phenergan) 12.5 mg IV Q4HP PRN PRN Reason: Nausea And Vomiting Last Admin: 10/19/17 20:10 Dose: 12.5 mg Sodium Chloride (Saline Flush) 10 ml IV Q12 [facility] Last Admin: 10/21/17 09:01 Dose: 10 ml - ABG Interpretation ABG results: 10/17/17 08:03 ABG Methemoglobin 0.3 L VBG pH 7.37 VBG pCO2 35.1 L VBG pO2 138 H VBG HCO3 19.7 L VBG Total CO2 20.8 L VBG O2 Saturation 96.1 H VBG Base Excess -4.9 L Medical - PN: A/P - Time Spent With Patient Total time spent is greater than 50% in coordination of care (as documented) at patient's floor/unit and/or counseling patient: - Narrative A/P Narrative: A/P Small bowel obstruction: Recurrence of SBO (vs. dysmotility) after removal of NG tube. Is/p surgery, NG tube in place. good movement today in the colostomy bag. Leucocytosis/ lactic Acidosis: resolved, on abx total of 7 days planned, microbiology neg growth, today is D4/7 of abx anemia hb slowly trending up, due to infection, recent surgery, no overt bleed, monitor. NPO status: has been NPO for quite a while, started back on TPN, tolerating it well, ok to use medications via NG tube. Fever: resolved, no /o infection. Hypocalcemia: on high dose oral calcitriol and calcium carbonate via NG tube, monitor. Once she is able to tolerate po diet, her dose of calcitriol and calcium will need to be cut back to avoid hypercalcemia, calcium levels to be monitored closely. AT the time of discharge she can resume her home dose as she does well with same. Hypomagnesemia: replace IV try to keep mg > 2.0, start on mg oxide when able. Myasthenia gravis/ Sarcoidosis: On steroids prednisone 20mg qd, changed to IV solumedrol, but back to PO on Sat. 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 She will be advised to discuss this with her PCP Morbid Obesity: PCP to follow Tachycardia, secondary to anxiety/ GI issues, resolved now, (has been worked up in the past, and her HR improves with improvement in GI symptoms,: HR stable presently, TSH low but T3 and T4 normal. Sepsis also playing a role now. Hypothyroidism : low TSH, normal t3, t4, resume dose once able to tolerate po. Osteoarthritis: Prn IV tylenol. Hep sq for DVT prophylaxis Full code. Medical - PN: Qual - VTE Deep Vein Thrombosis/Pulmonary Embolism Present on Admission: No
[2017-10-21] MEDS: FAT EMULSION 20% 250 ML IV SCH (16:00)
--- NOTE | 2017-10-21 17:06 | General Surgery Progress Note ---
Subjective Patient reports: feels better, pain is less, tolerating liquids well, flatus, bowel movement, afebrile Narrative: Note initiated : 10/21/17 at 5:01 pm Service Date, if different from initiated Date: [] Patient: Dayanna Stephens 56 y/o F admitted on 10/03/17 for Abd Pain/ Constipation Post Ostomy/Small Bowel Obst. Chief Complaint: [Patient is doing better. She denies nausea in spite of having her nasogastric tube clamped. She has started putting out some stool through her stoma . She does not have significant abdominal distention. Her incision looks good.] Objective Temp Pulse Resp BP Pulse Ox 98.5 F 78 16 155/93 98 10/21/17 16:00 10/21/17 16:00 10/21/17 16:00 10/21/17 16:00 10/21/17 16:00 - Additional Data Intake & Output - Last 24 hours: Intake & Output 10/19/17 10/20/17 10/21/17 10/22/17 05:59 05:59 05:59 05:59 Intake Total 4498 / 4498 3209 / 3209 2066.0455 / 2066.0455 2873 / 2873 Output Total 4340 / 4340 6450 / 6450 2875 / 2875 1400 / 1400 Balance 158 / 158 -3241 / -3241 -808.9545 / -808.9545 1473 / 1473 Weight 230 lb 6.4 oz 231 lb 221 lb 6 oz 221 lb 6 oz - General physical appearance well developed, no distress, moderate pain - Eyes PERRL, normal ocular movement - ENT normal pinna, normal nares, normal mucosa, no hearing loss, no congestion - Neck no masses, no bruits, trachea midline, no lymphadectomy, no venous distension - Respiratory normal expansion, normal respiratory effort, clear to percussion, clear to auscultation - Cardiovascular Cardiovascular exam: Present: normal rate and rhythm, RRR, +S1, +S2. Absent: gallop, JVD, systolic murmur - Abdomen non tender, bowel sounds (present), surgical scars ( Is surgical scar is unremarkable; stoma is beginning to function), masses (none) - Integumentary no rash, no growths, no abnormal pigmentation - Neurologic normal coordination, normal sensation - Musculoskeletal normal gait, normal posture - Psychiatric oriented to time, oriented to person, oriented to place, speech is normal, memory intact - Labs 10/21/17 03:40 10/21/17 03:40 Diabetes panel 10/21/17 Range/Units 03:40 Sodium 143 (133-145) mmol/L Potassium 3.9 (3.3-5.1) mmol/L Chloride 100 (96-108) mmol/L Carbon Dioxide 30 (22-30) mmol/L BUN 14 (6-20) mg/dl Creatinine 0.5 L (0.6-1.1) mg/dl Glucose 150 H (70-105) mg/dL Calcium 6.7 L (8.6-10.4) mg/dl AST 20 (0-37) U/l ALT 36 (0-40) U/l Alkaline Phosphatase 65 (39-117) U/L Total Protein 5.4 L (5.9-8.4) gm/dL Albumin 3.1 L (3.2-5.2) gm/dL Triglycerides 250 H (<150) mg/dl Calcium panel 10/21/17 Range/Units 03:40 Calcium 6.7 L (8.6-10.4) mg/dl Phosphorus 3.5 (2.7-4.5) mg/dL Albumin 3.1 L (3.2-5.2) gm/dL Pituitary panel 10/21/17 Range/Units 03:40 Sodium 143 (133-145) mmol/L Potassium 3.9 (3.3-5.1) mmol/L Chloride 100 (96-108) mmol/L Carbon Dioxide 30 (22-30) mmol/L BUN 14 (6-20) mg/dl Creatinine 0.5 L (0.6-1.1) mg/dl Glucose 150 H (70-105) mg/dL Calcium 6.7 L (8.6-10.4) mg/dl Adrenal panel 10/21/17 Range/Units 03:40 Sodium 143 (133-145) mmol/L Potassium 3.9 (3.3-5.1) mmol/L Chloride 100 (96-108) mmol/L Carbon Dioxide 30 (22-30) mmol/L BUN 14 (6-20) mg/dl Creatinine 0.5 L (0.6-1.1) mg/dl Glucose 150 H (70-105) mg/dL Calcium 6.7 L (8.6-10.4) mg/dl Total Bilirubin 0.2 (0.0-1.0) mg/dL AST 20 (0-37) U/l ALT 36 (0-40) U/l Alkaline Phosphatase 65 (39-117) U/L Total Protein 5.4 L (5.9-8.4) gm/dL Albumin 3.1 L (3.2-5.2) gm/dL Assessment and Plan (1) Chronic intestinal pseudo-obstruction Status: Acute Assessment and plan: continue present supportive care Start TPN Replace calcium and phosphorus Milk of magnesia 30 cc every 4 hours 4 doses Discontinue nasogastric tube Start clear liquids Current Visit: Yes (2) Hypothyroidism Status: Acute Current Visit: No (3) Myasthenia gravis Status: Acute Current Visit: No - Time Spent With Patient Total time spent is greater than 50% in coordination of care (as documented) at patient's floor/unit and/or counseling patient:
[2017-10-21] MEDS: MAGNESIUM HYDROXIDE 30 ML ORAL.SUSP PO SCH ×2 (17:26→22:13)
[2017-10-21] MEDS: LORazepam 2 MG/ML VIAL IV PRN (22:35)
[2017-10-22] MEDS: INSULIN LISPRO 1 UNIT/0.01 ML UNIT SQ SCH ×5 (00:24→23:39)
[2017-10-22] MEDS: MAGNESIUM HYDROXIDE 30 ML ORAL.SUSP PO SCH ×2 (01:45→04:38)
[2017-10-22] MEDS: HYDROmorphone 2 MG/ML SYRINGE IV PRN ×7 (01:51→20:36)
[2017-10-22] MEDS: 0.9 % SODIUM CHLORIDE 10 ML SYRINGE IV SCH ×4 (04:12→20:37)
[2017-10-22] MEDS: ACETAMINOPHEN 1,000 MG/100 ML BOTTLE IV PRN (04:12)
[2017-10-22] MEDS: CEFEPIME 2 GM VIAL IV SCH ×3 (05:39→22:01)
[2017-10-22 05:42] LABS: ALT/SGPT 28 U/l (0-40); Albumin 3.2 gm/dL (3.2-5.2); Albumin/Globulin Ratio 1.2 (1.0-2.3); Alkaline Phosphatase 66 U/L (39-117); Bilirubin,Direct < 0.2 mg/dL (0.0-0.3); Blood Urea Nitrogen 14 mg/dl (6-20); Gamma Glutamyl Transpeptidase 45 U/L (5-36); Magnesium 2.1 mg/dL (1.6-2.5); Uric Acid 1.9 mg/dL (2.5-8.0)
[2017-10-22] MEDS: metroNIDAZOLE 500 MG/100 ML BAG IV SCH ×3 (05:48→22:02)
[2017-10-22 05:56] LABS: Basophils # (Auto) 0 K/mcL (0.0-0.3); Basophils % (Auto) 0.3 % (0.0-2.0); Eosinophils # (Auto) 0.4 K/mcL (0.0-0.7); Eosinophils % (Auto) 3.6 % (0.0-7.0); Granulocytes % (Auto) 65.8 % (38.0-78.0); Lymphocytes # (Auto) 2.7 K/mcL (1.5-4.8); Lymphocytes % (Auto) 22.6 % (15.5-49.0); Mean Corpuscular HGB Conc 33.3 g/dL (31.0-36.0); Mean Corpuscular Hemoglobin 30.3 pg (26.0-34.0); Monocytes # (Auto) 0.9 K/mcL (0.1-0.9); Monocytes % (Auto) 7.7 % (1.0-12.0); Platelet Count 329 K/mcL (140-440); RBC 3.59 M/mcL (4.00-5.20); Red Cell Distribution Width 14.4 % (11.5-14.5)
[2017-10-22 07:15] LABS: Prealbumin 27.1 mg/dl (20-40)
[2017-10-22] MEDS: PANTOPRAZOLE 40 MG VIAL IV SCH (07:43)
[2017-10-22] MEDS: LEVOTHYROXINE 100 MCG VIAL IV SCH (07:43)
[2017-10-22] MEDS ORDERED: [UNRECOGNIZED DRUG - REMARK] IV SCH (10:00)
[2017-10-22] MEDS: CALCIUM CARBONATE 1,250 MG/5 ML ORAL.SUSP PT SCH ×3 (10:00→20:35)
[2017-10-22] MEDS: MULTIVITAMINS,THERAPEUTIC 1 ML ORAL.SOL PO SCH (10:00)
[2017-10-22] MEDS: HEPARIN 5,000 UNIT/ML VIAL SQ SCH ×2 (10:00→20:36)
[2017-10-22] MEDS: CALCITRIOL 0.5 MCG CAPSULE PT SCH ×3 (10:03→20:35)
[2017-10-22] MEDS: LINACLOTIDE 145 MG PO SCH (10:03)
[2017-10-22] MEDS: methylPREDNISolone SOD SUCC 40 MG/ML VIAL IV SCH (10:04)
--- NOTE | 2017-10-22 15:39 | General Surgery Progress Note ---
Subjective Patient reports: feels better, pain is less, flatus, bowel movement, afebrile Narrative: Note initiated : 10/22/17 at 3:37 pm Service Date, if different from initiated Date: [] Patient: Dayanna Stephens 56 y/o F admitted on 10/03/17 for Abd Pain/ Constipation Post Ostomy/Small Bowel Obst. Chief Complaint: [Patient continues to improve. She has had multiple bowel movements and her abdominal pain is better controlled. She complains of hunger. She has no shortness of breath or chest discomfort.] Objective Temp Pulse Resp BP Pulse Ox 96.6 F L 88 20 110/74 94 10/22/17 12:00 10/22/17 12:00 10/22/17 12:00 10/22/17 12:00 10/22/17 12:00 - Additional Data Intake & Output - Last 24 hours: Intake & Output 10/20/17 10/21/17 10/22/17 10/23/17 05:59 05:59 05:59 05:59 Intake Total 3209 / 3209 2066.0455 / 2066.0455 3773 / 3773 900 / 900 Output Total 6450 / 6450 2875 / 2875 5505 / 5505 1850 / 1850 Balance -3241 / -3241 -808.9545 / -808.9545 -1732 / -1732 -950 / -950 Weight 231 lb 221 lb 6 oz 221 lb 8 oz - General physical appearance well developed, well nourished, no distress, moderate pain - Eyes PERRL - ENT no congestion - Neck no masses, no bruits, trachea midline, no lymphadectomy, no venous distension - Respiratory normal expansion, normal respiratory effort, clear to percussion, clear to auscultation - Cardiovascular Cardiovascular exam: Present: normal rate and rhythm, RRR, +S1, +S2. Absent: gallop, JVD, systolic murmur - Abdomen tender (Mild incisional pain; hyperactive bowel sounds), bowel sounds (present) , surgical scars (none) - Integumentary no rash, no growths, no abnormal pigmentation - Neurologic normal coordination, normal sensation - Musculoskeletal normal gait, normal posture - Psychiatric oriented to time, oriented to person, oriented to place, speech is normal, memory intact - Labs 10/22/17 04:00 10/22/17 04:00 Diabetes panel 10/22/17 Range/Units 04:00 Sodium 140 (133-145) mmol/L Potassium 4.2 (3.3-5.1) mmol/L Chloride 96 (96-108) mmol/L Carbon Dioxide 31 H (22-30) mmol/L BUN 14 (6-20) mg/dl Creatinine 0.5 L (0.6-1.1) mg/dl Glucose 156 H (70-105) mg/dL Calcium 7.3 L (8.6-10.4) mg/dl AST 12 (0-37) U/l ALT 28 (0-40) U/l Alkaline Phosphatase 66 (39-117) U/L Total Protein 5.9 (5.9-8.4) gm/dL Albumin 3.2 (3.2-5.2) gm/dL Triglycerides 453 H (<150) mg/dl Calcium panel 10/22/17 Range/Units 04:00 Calcium 7.3 L (8.6-10.4) mg/dl Phosphorus 3.0 (2.7-4.5) mg/dL Albumin 3.2 (3.2-5.2) gm/dL Pituitary panel 10/22/17 Range/Units 04:00 Sodium 140 (133-145) mmol/L Potassium 4.2 (3.3-5.1) mmol/L Chloride 96 (96-108) mmol/L Carbon Dioxide 31 H (22-30) mmol/L BUN 14 (6-20) mg/dl Creatinine 0.5 L (0.6-1.1) mg/dl Glucose 156 H (70-105) mg/dL Calcium 7.3 L (8.6-10.4) mg/dl Adrenal panel 10/22/17 Range/Units 04:00 Sodium 140 (133-145) mmol/L Potassium 4.2 (3.3-5.1) mmol/L Chloride 96 (96-108) mmol/L Carbon Dioxide 31 H (22-30) mmol/L BUN 14 (6-20) mg/dl Creatinine 0.5 L (0.6-1.1) mg/dl Glucose 156 H (70-105) mg/dL Calcium 7.3 L (8.6-10.4) mg/dl Total Bilirubin < 0.2 (0.0-1.0) mg/dL AST 12 (0-37) U/l ALT 28 (0-40) U/l Alkaline Phosphatase 66 (39-117) U/L Total Protein 5.9 (5.9-8.4) gm/dL Albumin 3.2 (3.2-5.2) gm/dL Assessment and Plan (1) Chronic intestinal pseudo-obstruction Status: Acute Assessment and plan: continue present supportive care Replace calcium and phosphorus Full liquid diet Tramadol 100 mg every 6 hours as needed DC IV Tylenol 2 view abdominal x-rays in the morning Current Visit: Yes (2) Hypothyroidism Status: Acute Current Visit: No (3) Myasthenia gravis Status: Acute Current Visit: No - Time Spent With Patient Total time spent is greater than 50% in coordination of care (as documented) at patient's floor/unit and/or counseling patient:
[2017-10-22] MEDS: traMADol 50 MG TABLET PO PRN (18:47)
[2017-10-22] MEDS: PANTOPRAZOLE 40 MG TABLET PO SCH (20:35)
[2017-10-22] MEDS: DULoxetine 30 MG CAPSULE PO SCH (20:35)
[2017-10-22] MEDS: LORazepam 2 MG/ML VIAL IV PRN (20:36)
--- NOTE | 2017-10-22 23:29 | Internal Med Progress Note ---
Medical - PN: Subj Patient information: Note initiated : 10/22/17 at 11:27 pm Service Date, if different from initiated Date: [] Patient: Dayanna Stephens a 56 y/o F admitted on 10/03/17 for Abd Pain/ Constipation Post Ostomy/Small Bowel Obst. Interval history: Ms. Stephens is a 56 year old Female with h/o volvulus of the sigmoid colon, s/ p recent surgery by Dr Currie and was being closely followed in the outpatient clinic, presents today to the ER because of pain in the abdomen x 3 days, pain is sharp in the mid abdomen, non radiating, no aggravating relieving factors, noted that it was progressively getting worse, with some distention. She also had some episodes of sweating and dizziness, she therefore presented to the ER for further evaluation. IN the ER The abdomen x ray/ CT scan showed small bowel obstruction. Patients labs unremarkable, patient has h/o chr hypocalcemia, myasthenia gravis, severe anxiety and depression, osteoarthritis, hypothyroidism, autoimmune polyglandular syndrome, sarcoidosis. She will be admitted to medical floor, Gen Surgery consulting for SBO. Radiology trying to place NG tube, under fluoroscopy. The patient notes she has chr arthritis for which she takes some pain mes She also had some pain in the hypogastric regin, sharp shooting, which was told to in the past as nerve pain, The patient will be admitted to tele for further monitoring and management. Dec 22 Patient seen examined, doing well, some nausea, and her chr pain issues, not no new concerns reported she has NG tube with good drainage, X ray this AM is better Calcium was low, she is on high dose calcitriol replacement, mg is normal Dec 23 Patient seen examined, no acute overnight issues, some nausea, NG tube draining well has low mg and calcium, being replaced X ray shows not much improvement in SBO, plan for mag citrate by Surgery, will see how she does. Dec 24 patient seen examined, no acute overnight issues, has low grade temp, but no obvious source plan to check CXR and X ray abdomen today, check procalcitonin and ua patient now has some improved output in the stoma, with some gas, calcium level is 6.0, replace IV, mg 1.7, replace. Dec 25 patient seen examined, tired and did not talk much was anxious overnight needing ativan, which helped She is moving bowels, patient X ray shows improving sbo plan to give diet via NG tube for now as per surgery, Replace IV calcium fever resolved, procalcitonin neg, ua neg, cxr neg, no e/o infection, monitor Oct 08 Patient seen examined, doing well, SBO improving, pt wanting oral trials Plan to d/c NG tube today and start on liquid diet to see how she progresses, patient aware that she may need Placement of NG tube again if she fails this. Resume oral calcium supplements. Patient otherwise denies any other complaints Tico still low, on IV tico as pt still has intermittent spasms. oct 09 patient seen examined, no acute overnight issues pt tolerating po diet well, on clear liquids, likeliy to be advanced to full liquid now. tico low, replace IV and increase oral replacement to 1000mg tid, repalce mg oral and IV plan for d/c home wihen cleared by surgery Oct 10 patient seen examined, pt had episodes of nausea overnight X ray abdomen shwos recurrence of SBO NG tube was attempted but was not possible, Patient allergic to reglan, started on erythromycin for prokientic effect this AM x ray better, patient no longer has nausea NPO status again, continue with erythromycin, start on linzezz 145 mcg dialy , patients reports this helps with he bowels replace mg and calcium IV Oct 11 Had some flatus from ostomy this afternoon. Up ambulating the halls. Starting to have an appetite and feeling hungry, no nausea. Started on erythromycin and Linzess, also receiving milk of magnesia. Still requiring electrolyte replacement. October 12 Had no further flatus yesterday. Dr. Pulliam as ordered TPN to start. Received milk of magnesia and bisacodyl per ostomy. At the time of my exam, starting to develop bowel sounds. Continues on erythromycin October 13 Was started on small amounts of clear fluids on an hourly basis today. Has tolerated that well. Passing stool and ostomy. Notices continued bowel sounds.correction from previously, and Linzess has been held for the past several days. Needed repeated calcium infusion today. Hopefully we'll be able to start by mouth meds tomorrow. Oct 14 Continues to tolerate clear fluids. Spirits are good because she is tolerating oral intake and continues to have flatus and stool via her ostomy. No nausea or vomiting. No abdominal pain. Oct 15 Continues to tolerate diet, up to full liquids. Transitioned over to oral prescriptions today. Has continued to ambulate in the cain. TPN is being weaned to off overnight. Suspect she should be able to go home soon, possibly tomorrow. Back on her usual motility agents. Oct 16 Was doing well up until last evening, when took ibuprofen for pain. Developed nausea and vomiting. Has been nauseated all night. Some epigastric pain, otherwise no significant abdominal pain. Having loose ostomy output, C. difficile was sent which was negative. Still having ostomy output and flatus. Still feeling nauseated this morning. Zofran not helping. Received one dose of Phenergan which did help. We'll plan to start fluids, stop nonsteroidals, and Compazine or Phenergan for nausea today. We'll need to continue to monitor. TPN is now been weaned to off overnight. Oct 17 Patient seen examined, yesterday, plan was to start on pyridostigmine for myasthenia related pseudoobtruction, one dose given, but patient labs came back showing sepsis syndrome, with leucocytosis, and lactic acidosis, and worsening renal function. medication stopped promplty CT scan of abdomen done shows SBO, cultures sent IV vanco, and cefepime and flagyl started cxr is neg, ua is neg Etiology of leucocytosis is likely GI related transmigration from Bowels. Surgery planning to take pt to the OR today, Prednisone and levothyroxine switched to IV Oct 18 patient seen examined, no acute overnight issues, NG tube s/p surgery for SBO, band noted, Patient hemodynamically much stable today, lacte neg, wbc trending down, good output via NG tube. On IV fluids Calcium dropped again, replace IV. replace Mg. given ongoing NG suctin, add KCL to replacement too xfer to med surg status. d/c vanco no suspicion for Gram positives, on cefepime and flagyl to continue Oct 19 patient seen examined, no acute overnight issues, abdomen is sore, but pain controlled, no output from stoma pt calcium still low stat on high dose of PT calcitirol as well as oral calcium and IV calcium replacements. higher than usual doses used as pt has NG suction, which will limit some absorbtion of meds hb dropped to 8.7 no e/o overt bleed pt otherwise doing well. Oct 20 Patient seen examined, no acute overnight events, patient still has some sorness in abdomen, but no other issues vitals stable NG tube still in place Calcium better today, continue with high dose replacements. NO output from stoma yet, continue conserative management d/c mitchell Hb 9.4, stable Oct 21 patient seen examined, sitting comfortably in chair, feelign good today, had some stool output in the stoma Xray abdomen yesterday showed resolving SBO Patient feels hungry which is a good sign the pateitn calcium is also improving. Oct 22 Tolerating clear liquids. Good fecal output through stoma. Will restart po home meds and switch IV to po. - Constitutional Vitals: Vital Signs Temp Pulse Resp BP Pulse Ox 98.5 F 103 H 12 102/69 95 10/22/17 19:07 10/22/17 19:07 10/22/17 19:07 10/22/17 19:07 10/22/17 19:07 Period Temp Pulse Resp BP Sys/[place]ta Pulse Ox Last 24 Hr 96.6 F-98.5 F 88-103 12-20 102-126/69-84 92-95 Intake and Output 10/22/17 10/22/17 10/23/17 13:59 21:59 05:59 Intake Total 900 / 900 1400 / 1400 100 / 100 Output Total 1850 / 1850 2325 / 2325 Balance -950 / -950 -925 / -925 100 / 100 Weight 221 lb 8 oz Patient Weight 10/23/17 05:59 Weight 221 lb 8 oz Intake & Output: Intake & Output 10/22/17 10/22/17 10/23/17 13:59 21:59 05:59 Intake Total 900 / 900 1400 / 1400 100 / 100 Output Total 1850 / 1850 2325 / 2325 Balance -950 / -950 -925 / -925 100 / 100 Weight 221 lb 8 oz Intake: IV 100 / 100 100 / 100 100 / 100 Oral 800 / 800 1300 / 1300 Output: Void Amount 1500 / 1500 1500 / 1500 Stool 350 / 350 825 / 825 Other: Meal Dinner Percent of Meal Consumed 100% Feeding Ability Independent General appearance: obese - Respiratory Respiratory exam: Present: normal respiratory exam - Cardiovascular Cardiovascular exam: Present: normal rate and rhythm - GI/Abdominal GI/Abdominal exam: Present: normal bowel sounds Additional comments: Stoma with some stool. - Extremities Exam Extremities exam: Absent: calf tenderness, pedal edema Medical - PN: Obj Da - Labs CBC & Chem 7: 10/22/17 04:00 10/22/17 04:00 Labs: Abnormal Lab Results 10/22/17 10/22/17 10/21/17 04:00 04:00 03:40 WBC 12.0 H RBC 3.59 L Hgb 10.9 L Hct 32.7 L Carbon Dioxide 31 H Creatinine 0.5 L 0.5 L Glucose 156 H 150 H Uric Acid 1.9 L 2.3 L Calcium 7.3 L 6.7 L Magnesium GGT 45 H 47 H Lactate Dehydrogenase 267 H 304 H Total Protein 5.4 L Albumin 3.1 L Triglycerides 453 H 250 H 10/21/17 10/20/17 10/20/17 03:40 03:47 03:47 WBC RBC 3.41 L 3.15 L Hgb 10.1 L 9.4 L Hct 30.8 L 28.2 L Carbon Dioxide Creatinine 0.5 L Glucose 124 H Uric Acid Calcium 6.3 L Magnesium 1.5 L GGT 39 H Lactate Dehydrogenase 279 H Total Protein 5.2 L Albumin 2.9 L Triglycerides 319 H Meds: Medications Albuterol Sulfate (Ventolin) 2.5 mg NEB Q2HP PRN PRN Reason: Shortness Of Breath Calcitriol (Rocaltrol) 1 mcg PT TID [facility] Last Admin: 10/22/17 20:35 Dose: 1 mcg Calcium Carbonate/Glycine (Calcium Carbonate) 1,000 mg PT TID [facility] Last Admin: 10/22/17 20:35 Dose: 1,000 mg Cefepime HCl (Maxipime) 2 gm IV Q8H [facility] Last Admin: 10/22/17 22:01 Dose: 2 gm Dextrose (Dextrose 50%) 50 ml IV UD PRN PRN Reason: Hypoglycemia Diagnostic Test (Pha) (Accu-Chek) 1 each FS Q6H [facility] Last Admin: 10/22/17 16:15 Dose: 1 each Duloxetine HCl (Cymbalta) 30 mg PO BID [facility] Last Admin: 10/22/17 20:35 Dose: 30 mg Heparin Sodium (Porcine) (Heparin) 5,000 unit SQ Q12 [facility] Last Admin: 10/22/17 20:36 Dose: 5,000 unit Heparin Sodium (Porcine) (Heparin Flush) 2 ml IV Q12 [facility] Last Admin: 10/22/17 20:38 Dose: 2 ml Hydromorphone HCl (Dilaudid) 0.5 mg IV Q2HP PRN PRN Reason: PAIN LEVEL > 6 Last Admin: 10/22/17 20:36 Dose: 0.5 mg Fat Emulsion Intravenous (Intralipid 20%) 250 mls @ 25 mls/hr IV [id number] [facility] Last Admin: 10/21/17 16:00 Dose: 25 mls/hr Metronidazole (Flagyl) 500 mg in 100 mls @ 100 mls/hr IV Q8H [facility] Last Infusion: 10/22/17 23:12 Dose: Infused Calcium Gluconate 9.3 meq/Multivitamins/Minerals 10 ml/Selenium 60 mcg/ Potassium Chloride 60 meq/ Potassium Phosphate 30 meq/ Magnesium Sulfate 16.24 meq/ Amino Acids 2,072.3182 mls @ 80 mls/hr IV Q24H [facility] Last Admin: 10/22/17 10:04 Dose: 80 mls/hr Insulin Human Lispro (Humalog) 0 unit SQ Q6 [facility] PRN Reason: Protocol Last Admin: 10/22/17 16:15 Dose: 6 unit Levothyroxine Sodium (Synthroid) 250 mcg PO QAMAC [facility] Lorazepam (Ativan) 0.5 mg IV Q6HP PRN PRN Reason: ANXIETY/SEDATION Last Admin: 10/22/17 20:36 Dose: 0.5 mg Multivitamins (Thera-Plus) 5 ml PO DAILY [facility] Last Admin: 10/22/17 10:00 Dose: 5 ml Naloxone HCl (Narcan) 0.1 mg IV Q2MIN PRN PRN Reason: Opiate Reversal Linaclotide (Linzess () 145mg Cap) 1 dose PO DAILY [facility] Last Admin: 10/22/17 10:03 Dose: 1 dose Ondansetron HCl (Zofran) 4 mg IV Q6HP PRN PRN Reason: Nausea And Vomiting Last Admin: 10/18/17 16:32 Dose: 4 mg Pantoprazole Sodium (Protonix) 40 mg PO HS [facility] Last Admin: 10/22/17 20:35 Dose: 40 mg Phenol (Chloroseptic [place]) 5 spray SSP Q2HP PRN PRN Reason: Sore Throat Last Admin: 10/20/17 21:06 Dose: 5 spray Prednisone (Prednisone) 20 mg PO [facility] Prochlorperazine Edisylate (Compazine) 10 mg IV Q6HP PRN PRN Reason: Nausea And Vomiting Last Admin: 10/20/17 00:00 Dose: 10 mg Promethazine HCl (Phenergan) 12.5 mg IV Q4HP PRN PRN Reason: Nausea And Vomiting Last Admin: 10/19/17 20:10 Dose: 12.5 mg Sodium Chloride (Saline Flush) 10 ml IV Q12 [facility] Last Admin: 10/22/17 20:37 Dose: 10 ml Tramadol HCl (Ultram) 100 mg PO Q6HP PRN PRN Reason: Pain Last Admin: 10/22/17 18:47 Dose: 100 mg - ABG Interpretation ABG results: 10/17/17 08:03 ABG Methemoglobin 0.3 L VBG pH 7.37 VBG pCO2 35.1 L VBG pO2 138 H VBG HCO3 19.7 L VBG Total CO2 20.8 L VBG O2 Saturation 96.1 H VBG Base Excess -4.9 L Medical - PN: A/P - Time Spent With Patient Total time spent is greater than 50% in coordination of care (as documented) at patient's floor/unit and/or counseling patient: less than 15 minutes - Narrative A/P Narrative: A/P Small bowel obstruction: Recurrence of SBO (vs. dysmotility) after removal of NG tube. Is/p surgery, NG tube in place. good movement today in the colostomy bag. Leucocytosis/ lactic Acidosis: resolved, on abx total of 7 days planned, microbiology neg growth, today is D4/7 of abx anemia hb slowly trending up, due to infection, recent surgery, no overt bleed, monitor. NPO status: has been NPO for quite a while, started back on TPN, tolerating it well, ok to use medications via NG tube. Fever: resolved, no /o infection. Hypocalcemia: on high dose oral calcitriol and calcium carbonate via NG tube, monitor. Once she is able to tolerate po diet, her dose of calcitriol and calcium will need to be cut back to avoid hypercalcemia, calcium levels to be monitored closely. AT the time of discharge she can resume her home dose as she does well with same. Hypomagnesemia: replace IV try to keep mg > 2.0, start on mg oxide when able. Myasthenia gravis/ Sarcoidosis: On steroids prednisone 20mg qd, changed to IV solumedrol, but back to PO on Sat. 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 She will be advised to discuss this with her PCP Morbid Obesity: PCP to follow Tachycardia, secondary to anxiety/ GI issues, resolved now, (has been worked up in the past, and her HR improves with improvement in GI symptoms,: HR stable presently, TSH low but T3 and T4 normal. Sepsis also playing a role now. Hypothyroidism : low TSH, normal t3, t4, resume dose once able to tolerate po. Osteoarthritis: Prn IV tylenol. Hep sq for DVT prophylaxis Full code. Medical - PN: Qual - VTE Deep Vein Thrombosis/Pulmonary Embolism Present on Admission: No
[2017-10-23] MEDS: traMADol 50 MG TABLET PO PRN (03:06)
[2017-10-23] MEDS: HYDROmorphone 2 MG/ML SYRINGE IV PRN ×7 (04:22→22:54)
[2017-10-23] MEDS: CEFEPIME 2 GM VIAL IV SCH ×3 (05:22→22:55)
[2017-10-23] MEDS: metroNIDAZOLE 500 MG/100 ML BAG IV SCH ×3 (05:22→22:55)
[2017-10-23] MEDS: INSULIN LISPRO 1 UNIT/0.01 ML UNIT SQ SCH ×3 (05:23→18:01)
[2017-10-23 07:16] LABS: Basophils # (Auto) 0.1 K/mcL (0.0-0.3); Basophils % (Auto) 0.6 % (0.0-2.0); Eosinophils # (Auto) 0.5 K/mcL (0.0-0.7); Eosinophils % (Auto) 3.8 % (0.0-7.0); Granulocytes % (Auto) 61.9 % (38.0-78.0); Lymphocytes # (Auto) 3.1 K/mcL (1.5-4.8); Lymphocytes % (Auto) 24.8 % (15.5-49.0); Mean Cell Volume 90.6 fL (80.0-100.0); Mean Corpuscular HGB Conc 33.9 g/dL (31.0-36.0); Mean Corpuscular Hemoglobin 30.7 pg (26.0-34.0); Monocytes # (Auto) 1.1 K/mcL (0.1-0.9); Monocytes % (Auto) 8.9 % (1.0-12.0); Platelet Count 326 K/mcL (140-440); Red Cell Distribution Width 14.7 % (11.5-14.5)
[2017-10-23 07:40] LABS: ALT/SGPT 23 U/l (0-40); Albumin/Globulin Ratio 0.9 (1.0-2.3); Alkaline Phosphatase 73 U/L (39-117); Bilirubin,Direct < 0.2 mg/dL (0.0-0.3); Blood Urea Nitrogen 14 mg/dl (6-20); Gamma Glutamyl Transpeptidase 49 U/L (5-36); Magnesium 1.7 mg/dL (1.6-2.5); Uric Acid 1.8 mg/dL (2.5-8.0)
[2017-10-23 07:50] LABS: Prealbumin 30.3 mg/dl (20-40)
[2017-10-23] MEDS: predniSONE 20 MG TABLET PO SCH (08:09)
[2017-10-23] MEDS: DULoxetine 30 MG CAPSULE PO SCH ×2 (08:09→20:37)
[2017-10-23] MEDS: CALCIUM CARBONATE 1,250 MG/5 ML ORAL.SUSP PT SCH ×3 (08:09→20:37)
[2017-10-23] MEDS: 0.9 % SODIUM CHLORIDE 10 ML SYRINGE IV SCH ×2 (08:10→20:38)
[2017-10-23] MEDS: LINACLOTIDE 145 MG PO SCH ×2 (08:10→08:14)
[2017-10-23] MEDS: CALCITRIOL 0.5 MCG CAPSULE PT SCH ×3 (08:10→20:37)
[2017-10-23] MEDS: HEPARIN 5,000 UNIT/ML VIAL SQ SCH ×2 (08:10→20:37)
[2017-10-23] MEDS: MULTIVITAMINS,THERAPEUTIC 1 ML ORAL.SOL PO SCH ×2 (08:11→08:13)
[2017-10-23] MEDS: LEVOTHYROXINE 125 MCG TABLET PO SCH (08:21)
--- NOTE | 2017-10-23 08:27 | XRay Report ---
CLINICAL INFORMATION: History of small bowel obstruction. Status post surgery. TECHNIQUE: Supine and upright abdomen COMPARISON: Postoperative abdomen dated 10/20/2017. Preoperative abdomen dated 10/16/2017 FINDINGS: Skin kori remain present in a vertical midline incision. There is a rounded density in the left lower quadrant consistent with colostomy. There is gas within the stomach. There is colonic gas. No significant small bowel distention. Bowel gas pattern is considered nonspecific and unremarkable. No pneumoperitoneum. No biliary or portal venous gas. No pneumatosis. There are surgical clips in right upper quadrant consistent with cholecystectomy IMPRESSION: 1. Unremarkable bowel gas pattern. 2. Appearance is consistent with resolution of mechanical small bowel obstruction Interpreted and Authenticated by: All Cormier 10/23/17
[2017-10-23] MEDS: [UNRECOGNIZED DRUG - REMARK] IV SCH (09:43)
--- NOTE | 2017-10-23 13:51 | General Surgery Progress Note ---
Subjective Patient reports: feels better, tolerating liquids well, tolerating a regular diet, flatus, bowel movement, afebrile Narrative: Note initiated : 10/23/17 at 1:49 pm Service Date, if different from initiated Date: [] Patient: Dayanna Stephens 56 y/o F admitted on 10/03/17 for Abd Pain/ Constipation Post Ostomy/Small Bowel Obst. Chief Complaint: [Patient is doing well without complaints. She is tolerating diet and is having multiple bowel movements and copious flatus. She did not have any abdominal distention and her pain is well controlled.] Objective Temp Pulse Resp BP Pulse Ox 96.2 F L 105 H 16 130/84 95 10/23/17 11:55 10/23/17 11:55 10/23/17 11:55 10/23/17 11:55 10/23/17 11:55 - Additional Data Intake & Output - Last 24 hours: Intake & Output 10/21/17 10/22/17 10/23/17 10/24/17 05:59 05:59 05:59 05:59 Intake Total 2066.0455 / 2066.0455 3773 / 3773 2650 / 2650 300 / 300 Output Total 2875 / 2875 5505 / 5505 5850 / 5850 650 / 650 Balance -808.9545 / -808.9545 -1732 / -1732 -3200 / -3200 -350 / -350 Weight 221 lb 6 oz 221 lb 8 oz 221 lb 8 oz - General physical appearance well developed, well nourished, no distress - Eyes PERRL, normal ocular movement - ENT normal pinna, normal nares, normal mucosa, no hearing loss, no congestion - Neck no venous distension - Respiratory normal expansion, normal respiratory effort, clear to auscultation - Cardiovascular Cardiovascular exam: Present: normal rate and rhythm, RRR, +S1, +S2. Absent: JVD, tachycardia - Abdomen non tender, bowel sounds (present), surgical scars (none), masses (none) - Integumentary no rash, no growths, no abnormal pigmentation - Neurologic normal coordination, normal sensation - Musculoskeletal normal gait, normal posture - Psychiatric oriented to time, oriented to person, oriented to place, speech is normal, memory intact - Labs 10/23/17 04:00 10/23/17 04:00 Diabetes panel 10/23/17 Range/Units 04:00 Sodium 138 (133-145) mmol/L Potassium 4.7 (3.3-5.1) mmol/L Chloride 97 (96-108) mmol/L Carbon Dioxide 23 (22-30) mmol/L BUN 14 (6-20) mg/dl Creatinine 0.5 L (0.6-1.1) mg/dl Glucose 135 H (70-105) mg/dL Calcium 8.2 L (8.6-10.4) mg/dl AST 14 (0-37) U/l ALT 23 (0-40) U/l Alkaline Phosphatase 73 (39-117) U/L Total Protein 6.2 (5.9-8.4) gm/dL Albumin 3.0 L (3.2-5.2) gm/dL Triglycerides 569 H (<150) mg/dl Calcium panel 10/23/17 Range/Units 04:00 Calcium 8.2 L (8.6-10.4) mg/dl Phosphorus 3.8 (2.7-4.5) mg/dL Albumin 3.0 L (3.2-5.2) gm/dL Pituitary panel 10/23/17 Range/Units 04:00 Sodium 138 (133-145) mmol/L Potassium 4.7 (3.3-5.1) mmol/L Chloride 97 (96-108) mmol/L Carbon Dioxide 23 (22-30) mmol/L BUN 14 (6-20) mg/dl Creatinine 0.5 L (0.6-1.1) mg/dl Glucose 135 H (70-105) mg/dL Calcium 8.2 L (8.6-10.4) mg/dl Adrenal panel 10/23/17 Range/Units 04:00 Sodium 138 (133-145) mmol/L Potassium 4.7 (3.3-5.1) mmol/L Chloride 97 (96-108) mmol/L Carbon Dioxide 23 (22-30) mmol/L BUN 14 (6-20) mg/dl Creatinine 0.5 L (0.6-1.1) mg/dl Glucose 135 H (70-105) mg/dL Calcium 8.2 L (8.6-10.4) mg/dl Total Bilirubin 0.2 (0.0-1.0) mg/dL AST 14 (0-37) U/l ALT 23 (0-40) U/l Alkaline Phosphatase 73 (39-117) U/L Total Protein 6.2 (5.9-8.4) gm/dL Albumin 3.0 L (3.2-5.2) gm/dL Assessment and Plan (1) Chronic intestinal pseudo-obstruction Status: Acute Assessment and plan: continue present supportive care Replace calcium and phosphorus Soft diet as tolerated Tramadol 100 mg every 6 hours as needed Taper TPN Current Visit: Yes (2) Hypothyroidism Status: Acute Current Visit: No (3) Myasthenia gravis Status: Acute Current Visit: No - Time Spent With Patient Total time spent is greater than 50% in coordination of care (as documented) at patient's floor/unit and/or counseling patient:
[2017-10-23] MEDS: PANTOPRAZOLE 40 MG TABLET PO SCH (20:37)
[2017-10-23] MEDS: LORazepam 2 MG/ML VIAL IV PRN (20:41)
--- NOTE | 2017-10-23 23:08 | Internal Med Progress Note ---
Medical - PN: Subj Patient information: Note initiated : 10/23/17 at 11:06 pm Service Date, if different from initiated Date: [] Patient: Dayanna Stephens a 56 y/o F admitted on 10/03/17 for Abd Pain/ Constipation Post Ostomy/Small Bowel Obst. Chief Complaint: [] Interval history: Ms. Stephens is a 56 year old Female with h/o volvulus of the sigmoid colon, s/ p recent surgery by Dr Currie and was being closely followed in the outpatient clinic, presents today to the ER because of pain in the abdomen x 3 days, pain is sharp in the mid abdomen, non radiating, no aggravating relieving factors, noted that it was progressively getting worse, with some distention. She also had some episodes of sweating and dizziness, she therefore presented to the ER for further evaluation. IN the ER The abdomen x ray/ CT scan showed small bowel obstruction. Patients labs unremarkable, patient has h/o chr hypocalcemia, myasthenia gravis, severe anxiety and depression, osteoarthritis, hypothyroidism, autoimmune polyglandular syndrome, sarcoidosis. She will be admitted to medical floor, Gen Surgery consulting for SBO. Radiology trying to place NG tube, under fluoroscopy. The patient notes she has chr arthritis for which she takes some pain mes She also had some pain in the hypogastric regin, sharp shooting, which was told to in the past as nerve pain, The patient will be admitted to tele for further monitoring and management. Dec 22 Patient seen examined, doing well, some nausea, and her chr pain issues, not no new concerns reported she has NG tube with good drainage, X ray this AM is better Calcium was low, she is on high dose calcitriol replacement, mg is normal Dec 23 Patient seen examined, no acute overnight issues, some nausea, NG tube draining well has low mg and calcium, being replaced X ray shows not much improvement in SBO, plan for mag citrate by Surgery, will see how she does. Dec 24 patient seen examined, no acute overnight issues, has low grade temp, but no obvious source plan to check CXR and X ray abdomen today, check procalcitonin and ua patient now has some improved output in the stoma, with some gas, calcium level is 6.0, replace IV, mg 1.7, replace. Dec 25 patient seen examined, tired and did not talk much was anxious overnight needing ativan, which helped She is moving bowels, patient X ray shows improving sbo plan to give diet via NG tube for now as per surgery, Replace IV calcium fever resolved, procalcitonin neg, ua neg, cxr neg, no e/o infection, monitor Oct 08 Patient seen examined, doing well, SBO improving, pt wanting oral trials Plan to d/c NG tube today and start on liquid diet to see how she progresses, patient aware that she may need Placement of NG tube again if she fails this. Resume oral calcium supplements. Patient otherwise denies any other complaints Tico still low, on IV tico as pt still has intermittent spasms. oct 09 patient seen examined, no acute overnight issues pt tolerating po diet well, on clear liquids, likeliy to be advanced to full liquid now. tico low, replace IV and increase oral replacement to 1000mg tid, repalce mg oral and IV plan for d/c home wihen cleared by surgery Oct 10 patient seen examined, pt had episodes of nausea overnight X ray abdomen shwos recurrence of SBO NG tube was attempted but was not possible, Patient allergic to reglan, started on erythromycin for prokientic effect this AM x ray better, patient no longer has nausea NPO status again, continue with erythromycin, start on linzezz 145 mcg dialy , patients reports this helps with he bowels replace mg and calcium IV Oct 11 Had some flatus from ostomy this afternoon. Up ambulating the halls. Starting to have an appetite and feeling hungry, no nausea. Started on erythromycin and Linzess, also receiving milk of magnesia. Still requiring electrolyte replacement. October 12 Had no further flatus yesterday. Dr. Pulliam as ordered TPN to start. Received milk of magnesia and bisacodyl per ostomy. At the time of my exam, starting to develop bowel sounds. Continues on erythromycin October 13 Was started on small amounts of clear fluids on an hourly basis today. Has tolerated that well. Passing stool and ostomy. Notices continued bowel sounds.correction from previously, and Linzess has been held for the past several days. Needed repeated calcium infusion today. Hopefully we'll be able to start by mouth meds tomorrow. Oct 14 Continues to tolerate clear fluids. Spirits are good because she is tolerating oral intake and continues to have flatus and stool via her ostomy. No nausea or vomiting. No abdominal pain. Oct 15 Continues to tolerate diet, up to full liquids. Transitioned over to oral prescriptions today. Has continued to ambulate in the cain. TPN is being weaned to off overnight. Suspect she should be able to go home soon, possibly tomorrow. Back on her usual motility agents. Oct 16 Was doing well up until last evening, when took ibuprofen for pain. Developed nausea and vomiting. Has been nauseated all night. Some epigastric pain, otherwise no significant abdominal pain. Having loose ostomy output, C. difficile was sent which was negative. Still having ostomy output and flatus. Still feeling nauseated this morning. Zofran not helping. Received one dose of Phenergan which did help. We'll plan to start fluids, stop nonsteroidals, and Compazine or Phenergan for nausea today. We'll need to continue to monitor. TPN is now been weaned to off overnight. Oct 17 Patient seen examined, yesterday, plan was to start on pyridostigmine for myasthenia related pseudoobtruction, one dose given, but patient labs came back showing sepsis syndrome, with leucocytosis, and lactic acidosis, and worsening renal function. medication stopped promplty CT scan of abdomen done shows SBO, cultures sent IV vanco, and cefepime and flagyl started cxr is neg, ua is neg Etiology of leucocytosis is likely GI related transmigration from Bowels. Surgery planning to take pt to the OR today, Prednisone and levothyroxine switched to IV Oct 18 patient seen examined, no acute overnight issues, NG tube s/p surgery for SBO, band noted, Patient hemodynamically much stable today, lacte neg, wbc trending down, good output via NG tube. On IV fluids Calcium dropped again, replace IV. replace Mg. given ongoing NG suctin, add KCL to replacement too xfer to med surg status. d/c vanco no suspicion for Gram positives, on cefepime and flagyl to continue Oct 19 patient seen examined, no acute overnight issues, abdomen is sore, but pain controlled, no output from stoma pt calcium still low stat on high dose of PT calcitirol as well as oral calcium and IV calcium replacements. higher than usual doses used as pt has NG suction, which will limit some absorbtion of meds hb dropped to 8.7 no e/o overt bleed pt otherwise doing well. Oct 20 Patient seen examined, no acute overnight events, patient still has some sorness in abdomen, but no other issues vitals stable NG tube still in place Calcium better today, continue with high dose replacements. NO output from stoma yet, continue conserative management d/c mitchell Hb 9.4, stable Oct 21 patient seen examined, sitting comfortably in chair, feelign good today, had some stool output in the stoma Xray abdomen yesterday showed resolving SBO Patient feels hungry which is a good sign the pateitn calcium is also improving. Oct 22 Tolerating clear liquids. Good fecal output through stoma. Will restart po home meds and switch IV to po. Oct 23. Tolerating full liquids. TPN decreased to 50%. - Constitutional Vitals: Vital Signs Temp Pulse Resp BP Pulse Ox 98.3 F 108 H 16 112/75 94 10/23/17 20:00 10/23/17 20:00 10/23/17 20:00 10/23/17 20:00 10/23/17 20:00 Period Temp Pulse Resp BP Sys/[place] Pulse Ox Last 24 Hr 96.2 F-98.3 F 88-108 12-18 112-143/75-96 94-98 Intake and Output 10/23/17 10/23/17 10/24/17 13:59 21:59 05:59 Intake Total 300 / 300 580 / 580 Output Total 650 / 650 1450 / 1450 Balance -350 / -350 -870 / -870 Weight 220 lb Patient Weight 10/24/17 05:59 Weight 220 lb Intake & Output: Intake & Output 10/23/17 10/23/17 10/24/17 13:59 21:59 05:59 Intake Total 300 / 300 580 / 580 Output Total 650 / 650 1450 / 1450 Balance -350 / -350 -870 / -870 Weight 220 lb Intake: IV 100 / 100 100 / 100 Oral 200 / 200 480 / 480 Output: Void Amount 650 / 650 1300 / 1300 Stool 150 / 150 General appearance: obese - Head Head exam: Present: normal inspection - Respiratory Respiratory exam: Present: normal respiratory exam - Cardiovascular Cardiovascular exam: Present: normal rate and rhythm - GI/Abdominal GI/Abdominal exam: Present: normal bowel sounds Additional comments: Stoma with stool - Extremities Exam Extremities exam: Absent: calf tenderness, pedal edema Medical - PN: Obj Da - Labs CBC & Chem 7: 10/23/17 04:00 10/23/17 04:00 Labs: Abnormal Lab Results 10/23/17 10/23/17 10/22/17 04:00 04:00 04:00 WBC 12.6 H RBC 3.80 L Hgb 11.6 L Hct 34.4 L RDW 14.7 H [place] # (Auto) 1.1 H Carbon Dioxide 31 H Anion Gap 18.0 H Creatinine 0.5 L 0.5 L Glucose 135 H 156 H Uric Acid 1.8 L 1.9 L Calcium 8.2 L 7.3 L GGT 49 H 45 H Lactate Dehydrogenase 295 H 267 H Total Protein Albumin 3.0 L Albumin/Globulin Ratio 0.9 L Triglycerides 569 H 453 H 10/22/17 10/21/17 10/21/17 04:00 03:40 03:40 WBC 12.0 H RBC 3.59 L 3.41 L Hgb 10.9 L 10.1 L Hct 32.7 L 30.8 L RDW [place] # (Auto) Carbon Dioxide Anion Gap Creatinine 0.5 L Glucose 150 H Uric Acid 2.3 L Calcium 6.7 L GGT 47 H Lactate Dehydrogenase 304 H Total Protein 5.4 L Albumin 3.1 L Albumin/Globulin Ratio Triglycerides 250 H Meds: Medications Albuterol Sulfate (Ventolin) 2.5 mg NEB Q2HP PRN PRN Reason: Shortness Of Breath Calcitriol (Rocaltrol) 1 mcg PT TID [facility] Last Admin: 10/23/17 20:37 Dose: 1 mcg Calcium Carbonate/Glycine (Calcium Carbonate) 1,000 mg PT TID [facility] Last Admin: 10/23/17 20:37 Dose: 1,000 mg Cefepime HCl (Maxipime) 2 gm IV Q8H [facility] Last Admin: 10/23/17 22:55 Dose: 2 gm Dextrose (Dextrose 50%) 50 ml IV UD PRN PRN Reason: Hypoglycemia Diagnostic Test (Pha) (Accu-Chek) 1 each FS Q6H [facility] Last Admin: 10/23/17 17:59 Dose: 1 each Duloxetine HCl (Cymbalta) 30 mg PO BID [facility] Last Admin: 10/23/17 20:37 Dose: 30 mg Heparin Sodium (Porcine) (Heparin) 5,000 unit SQ Q12 [facility] Last Admin: 10/23/17 20:37 Dose: 5,000 unit Heparin Sodium (Porcine) (Heparin Flush) 2 ml IV Q12 [facility] Last Admin: 10/23/17 20:37 Dose: 2 ml Hydromorphone HCl (Dilaudid) 0.5 mg IV Q2HP PRN PRN Reason: PAIN LEVEL > 6 Last Admin: 10/23/17 22:54 Dose: 0.5 mg Metronidazole (Flagyl) 500 mg in 100 mls @ 100 mls/hr IV Q8H [facility] Last Admin: 10/23/17 22:55 Dose: 100 mls/hr Calcium Gluconate 4.65 meq/Multivitamins/Minerals 10 ml/Selenium 60 mcg/ Potassium Chloride 20 meq/ Magnesium Sulfate 8.12 meq/ Potassium Phosphate 10 meq/ Amino Acids 1,035.7727 mls @ 40 mls/hr IV Q24H [facility] Last Admin: 10/23/17 09:43 Dose: 40 mls/hr Insulin Human Lispro (Humalog) 0 unit SQ Q6 [facility] PRN Reason: Protocol Last Admin: 10/23/17 18:01 Dose: 6 unit Levothyroxine Sodium (Synthroid) 250 mcg PO QAMAC [facility] Last Admin: 10/23/17 08:21 Dose: 250 mcg Lorazepam (Ativan) 0.5 mg IV Q6HP PRN PRN Reason: ANXIETY/SEDATION Last Admin: 10/23/17 20:41 Dose: 0.5 mg Multivitamins (Thera-Plus) 5 ml PO DAILY [facility] Last Admin: 10/23/17 08:13 Dose: Not Given Naloxone HCl (Narcan) 0.1 mg IV Q2MIN PRN PRN Reason: Opiate Reversal Linaclotide (Linzess () 145mg Cap) 1 dose PO DAILY [facility] Last Admin: 10/23/17 08:14 Dose: 1 dose Ondansetron HCl (Zofran) 4 mg IV Q6HP PRN PRN Reason: Nausea And Vomiting Last Admin: 10/18/17 16:32 Dose: 4 mg Pantoprazole Sodium (Protonix) 40 mg PO HS [facility] Last Admin: 10/23/17 20:37 Dose: 40 mg Phenol (Chloroseptic [place]) 5 spray SSP Q2HP PRN PRN Reason: Sore Throat Last Admin: 10/20/17 21:06 Dose: 5 spray Prednisone (Prednisone) 20 mg PO [facility] Last Admin: 10/23/17 08:09 Dose: 20 mg Prochlorperazine Edisylate (Compazine) 10 mg IV Q6HP PRN PRN Reason: Nausea And Vomiting Last Admin: 10/20/17 00:00 Dose: 10 mg Promethazine HCl (Phenergan) 12.5 mg IV Q4HP PRN PRN Reason: Nausea And Vomiting Last Admin: 10/19/17 20:10 Dose: 12.5 mg Sodium Chloride (Saline Flush) 10 ml IV Q12 [facility] Last Admin: 10/23/17 20:38 Dose: 10 ml Tramadol HCl (Ultram) 100 mg PO Q6HP PRN PRN Reason: Pain Last Admin: 10/23/17 03:06 Dose: 100 mg - ABG Interpretation ABG results: 10/17/17 08:03 ABG Methemoglobin 0.3 L VBG pH 7.37 VBG pCO2 35.1 L VBG pO2 138 H VBG HCO3 19.7 L VBG Total CO2 20.8 L VBG O2 Saturation 96.1 H VBG Base Excess -4.9 L Medical - PN: A/P - Time Spent With Patient Total time spent is greater than 50% in coordination of care (as documented) at patient's floor/unit and/or counseling patient: less than 15 minutes - Narrative A/P Narrative: A/P Small bowel obstruction: Recurrence of SBO (vs. dysmotility) after removal of NG tube. Is/p surgery, NG tube in place. good movement today in the colostomy bag. Leucocytosis/ lactic Acidosis: resolved, on abx total of 7 days planned, microbiology neg growth, today is D4/7 of abx anemia hb slowly trending up, due to infection, recent surgery, no overt bleed, monitor. NPO status: has been NPO for quite a while, started back on TPN, tolerating it well, ok to use medications via NG tube. Fever: resolved, no /o infection. Hypocalcemia: on high dose oral calcitriol and calcium carbonate via NG tube, monitor. Once she is able to tolerate po diet, her dose of calcitriol and calcium will need to be cut back to avoid hypercalcemia, calcium levels to be monitored closely. AT the time of discharge she can resume her home dose as she does well with same. Hypomagnesemia: replace IV try to keep mg > 2.0, start on mg oxide when able. Myasthenia gravis/ Sarcoidosis: On steroids prednisone 20mg qd, changed to IV solumedrol, but back to PO on Sat. High risk of osteoporosis, pt also needs PCP prophylaxis at this dose if going to be [facility]. She will be advised to discuss this with her PCP Morbid Obesity: PCP to follow Tachycardia, secondary to anxiety/ GI issues, resolved now, (has been worked up in the past, and her HR improves with improvement in GI symptoms,: HR stable presently, TSH low but T3 and T4 normal. Sepsis also playing a role now. Hypothyroidism : low TSH, normal t3, t4, resume dose once able to tolerate po. Osteoarthritis: Prn IV tylenol. Hep sq for DVT prophylaxis Full code. Medical - PN: Qual - VTE Deep Vein Thrombosis/Pulmonary Embolism Present on Admission: No
[2017-10-24] MEDS: INSULIN LISPRO 1 UNIT/0.01 ML UNIT SQ SCH ×3 (00:03→12:16)
[2017-10-24] MEDS: HYDROmorphone 2 MG/ML SYRINGE IV PRN ×5 (01:34→11:12)
[2017-10-24] MEDS: CEFEPIME 2 GM VIAL IV SCH ×2 (05:57→14:45)
[2017-10-24] MEDS: metroNIDAZOLE 500 MG/100 ML BAG IV SCH ×2 (05:57→14:44)
[2017-10-24 06:07] LABS: Prealbumin 32.5 mg/dl (20-40)
[2017-10-24] MEDS: LEVOTHYROXINE 125 MCG TABLET PO SCH (07:01)
[2017-10-24] MEDS: HEPARIN 5,000 UNIT/ML VIAL SQ SCH (09:02)
[2017-10-24] MEDS: DULoxetine 30 MG CAPSULE PO SCH (09:02)
[2017-10-24] MEDS: MULTIVITAMINS,THERAPEUTIC 1 ML ORAL.SOL PO SCH (09:02)
[2017-10-24] MEDS: predniSONE 20 MG TABLET PO SCH (09:02)
[2017-10-24] MEDS: LINACLOTIDE 145 MG PO SCH (09:02)
[2017-10-24] MEDS: CALCIUM CARBONATE 1,250 MG/5 ML ORAL.SUSP PT SCH (09:02)
[2017-10-24] MEDS: CALCITRIOL 0.5 MCG CAPSULE PT SCH (09:02)
[2017-10-24] MEDS: 0.9 % SODIUM CHLORIDE 10 ML SYRINGE IV SCH (09:03)
[2017-10-24] MEDS: [UNRECOGNIZED DRUG - REMARK] IV SCH (12:11)
--- NOTE | 2017-10-24 16:16 | Discharge Summary ---
Providers - Providers Patient information: Note initiated : 10/24/17 at 4:09 pm Service Date, if different from initiated Date: [] Patient: Dayanna Stephens 56 y/o F admitted on 10/03/17 for Abd Pain/ Constipation Post Ostomy/Small Bowel Obst. Chief Complaint: [] Date of admission: 10/03/17 Discharge date: 10/24/17 Attending physician: Bertha Currie Hospitalization Hospital course: This is a 56-year-old female is who was admitted on 03 October 2017 for recurrent abdominal pain nausea and vomiting. She had findings suggesting dilated small bowel and colon with her distal colon being decompressed. She has a known intestinal pseudoobstruction and is status post sigmoid volvulus resection with Baez's procedure. Multiple trials were carried out to get her to decompress however she had 2 episodes where she would have large volume output. Her colostomy and then present with near total obstruction. On 16 October she had increased leukocytosis, serum lactate. She was explored on october and was found to have a single band in her pelvis from her rectal stump to the base of the small bowel mesentery causing obstruction. This band was lysed and the small bowel was straightened. She had slow return of intestinal function and after large volume gas reached the colon she was given milk of magnesia 2 days and then her bowel totally decompressed. She is stable at this time and is tolerating a regular diet having large volume bowel movements and flatus on a daily basis. She states that she feels better than she is felt in the entire postop. She is stable and is discharged home in satisfactory Condition. 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 Reason for admission: recurrent abdominal pain nausea vomiting Procedures: Exploratory laparotomy with intestinal adhesiolysis Pertinent studies/significant findings: CT of abdomen and pelvis Exam Temp Pulse Resp BP Pulse Ox 96.7 F L 108 H 18 141/96 91 10/24/17 15:04 10/24/17 15:04 10/24/17 15:04 10/24/17 15:04 10/24/17 15:04 - General physical appearance well developed, well nourished, no distress - Eyes PERRL, normal ocular movement - ENT normal pinna, normal nares, normal mucosa, no hearing loss, no congestion - Head Head exam IM: Present: atraumatic, normocephalic - Neck no masses, no bruits, trachea midline, no lymphadectomy, no venous distension - Cardiovascular Cardiovascular exam IM: Present: normal rate and rhythm - Respiratory normal expansion, normal respiratory effort, clear to percussion, clear to auscultation - Abdomen Abdomen: Present: soft, non tender, bowel sounds, wound (Incision is well- healed and her stoma is functioning appropriately) Hernia: Present: none - Genitourinary Present: normal external genitalia - Integumentary Present: no rash, no growths, no abnormal pigmentation - Neurologic Present: normal coordination, normal sensation - Musculoskeletal Present: normal gait, normal posture - Psychiatric Present: oriented to time, oriented to person, oriented to place, speech is normal, memory intact Discharge Plan - Patient/Caregiver Discharge Instructions Activity: increase activity as tolerated Diet: Regular Diet Additional Instructions: Home health service to continue to assist with colostomy care Follow-up in the office 04 November 2017 Prescriptions: oxyCODONE HCL/ACETAMINOPHEN [Endocet 10-325 mg Tablet] 1 each PO Q4HP PRN #30 tab PRN Reason: Pain - Follow up Plan Follow up with: Bertha Currie MD [Physician] - Douglas Haque MD [Primary Care Provider] - Disposition: Home, Self-Care Prognosis: Good Rehab Potential: Good I certify that the patient requires SNF services.: Yes Overall status at discharge: patient is not back to baseline Pending Studies Resuscitation Status Full Code Diet Full Liquid Diet Start SatOct 23 155 Calcitriol (Rocaltrol) 1 mcg PT TID [facility] Last Admin: 10/24/17 09:02 Dose: 1 mcg Admin: 10/23/17 20:37 Dose: 1 mcg Admin: 10/23/17 16:01 Dose: 1 mcg Admin: 10/23/17 08:10 Dose: 1 mcg Admin: 10/22/17 20:35 Dose: 1 mcg Admin: 10/22/17 14:18 Dose: 1 mcg Admin: 10/22/17 10:03 Dose: 1 mcg Admin: 10/21/17 22:14 Dose: 1 mcg Admin: 10/21/17 15:52 Dose: 1 mcg Admin: 10/21/17 09:00 Dose: 1 mcg Admin: 10/20/17 21:02 Dose: 1 mcg Admin: 10/20/17 14:50 Dose: 1 mcg Admin: 10/20/17 10:02 Dose: 1 mcg Admin: 10/19/17 21:58 Dose: 1 mcg Admin: 10/19/17 15:40 Dose: 1 mcg Calcium Carbonate/Glycine (Calcium Carbonate) 1,000 mg PT TID [facility] Last Admin: 10/24/17 09:02 Dose: 1,000 mg Admin: 10/23/17 20:37 Dose: 1,000 mg Admin: 10/23/17 16:01 Dose: 1,000 mg Admin: 10/23/17 08:09 Dose: 1,000 mg Admin: 10/22/17 20:35 Dose: 1,000 mg Admin: 10/22/17 14:16 Dose: 1,000 mg Admin: 10/22/17 10:00 Dose: 1,000 mg Admin: 10/21/17 22:11 Dose: 1,000 mg Admin: 10/21/17 15:52 Dose: 1,000 mg Admin: 10/21/17 09:00 Dose: 1,000 mg Admin: 10/20/17 21:01 Dose: 1,000 mg Admin: 10/20/17 14:50 Dose: 1,000 mg Admin: 10/20/17 10:02 Dose: 1,000 mg Admin: 10/19/17 21:59 Dose: 1,000 mg Admin: 10/19/17 15:40 Dose: 1,000 mg Cefepime HCl (Maxipime) 2 gm IV Q8H [facility] Last Admin: 10/24/17 14:45 Dose: Admin: 10/24/17 05:57 Dose: 2 gm Admin: 10/23/17 22:55 Dose: 2 gm Admin: 10/23/17 14:26 Dose: 2 gm Admin: 10/23/17 05:22 Dose: 2 gm Admin: 10/22/17 22:01 Dose: 2 gm Admin: 10/22/17 14:33 Dose: 2 gm Admin: 10/22/17 05:39 Dose: 2 gm Admin: 10/21/17 22:12 Dose: 2 gm Admin: 10/21/17 15:32 Dose: 2 gm Admin: 10/21/17 05:09 Dose: 2 gm Admin: 10/20/17 23:44 Dose: 2 gm Admin: 10/20/17 14:54 Dose: 2 gm Admin: 10/20/17 06:42 Dose: 2 gm Admin: 10/19/17 22:00 Dose: 2 gm Admin: 10/19/17 15:40 Dose: 2 gm Admin: 10/19/17 05:30 Dose: 2 gm Admin: 10/18/17 22:44 Dose: 2 gm Diagnostic Test (Pha) (Accu-Chek) 1 each FS Q6H [facility] Last Admin: 10/24/17 12:15 Dose: 1 each Admin: 10/24/17 05:51 Dose: 1 each Admin: 10/23/17 23:59 Dose: 1 each Admin: 10/23/17 17:59 Dose: 1 each Admin: 10/23/17 11:38 Dose: 1 each Admin: 10/23/17 05:24 Dose: 1 each Admin: 10/22/17 23:39 Dose: 1 each Admin: 10/22/17 16:15 Dose: 1 each Admin: 10/22/17 13:14 Dose: 1 each Admin: 10/22/17 05:38 Dose: 1 each Admin: 10/22/17 00:24 Dose: 1 each Admin: 10/21/17 17:26 Dose: 1 each Admin: 10/21/17 12:25 Dose: 1 each Admin: 10/21/17 05:46 Dose: 1 each Admin: 10/20/17 23:44 Dose: 1 each Admin: 10/20/17 17:32 Dose: 1 each Admin: 10/20/17 12:07 Dose: 1 each Admin: 10/20/17 05:39 Dose: 1 each Admin: 10/20/17 00:48 Dose: 1 each Admin: 10/19/17 17:57 Dose: 1 each Admin: 10/19/17 12:04 Dose: 1 each Admin: 10/19/17 06:01 Dose: 1 each Admin: 10/19/17 01:02 Dose: 1 each Admin: 10/18/17 18:47 Dose: 1 each Duloxetine HCl (Cymbalta) 30 mg PO BID [facility] Last Admin: 10/24/17 09:02 Dose: 30 mg Admin: 10/23/17 20:37 Dose: 30 mg Admin: 10/23/17 08:09 Dose: 30 mg Admin: 10/22/17 20:35 Dose: 30 mg Heparin Sodium (Porcine) (Heparin) 5,000 unit SQ Q12 [facility] Last Admin: 10/24/17 09:02 Dose: 5,000 unit Admin: 10/23/17 20:37 Dose: 5,000 unit Admin: 10/23/17 08:10 Dose: 5,000 unit Admin: 10/22/17 20:36 Dose: 5,000 unit Admin: 10/22/17 10:00 Dose: 5,000 unit Admin: 10/21/17 22:12 Dose: 5,000 unit Admin: 10/21/17 09:03 Dose: 5,000 unit Admin: 10/20/17 21:02 Dose: 5,000 unit Admin: 10/20/17 09:43 Dose: 5,000 unit Admin: 10/19/17 21:58 Dose: 5,000 unit Admin: 10/19/17 10:55 Dose: 5,000 unit Admin: 10/18/17 22:44 Dose: 5,000 unit Heparin Sodium (Porcine) (Heparin Flush) 2 ml IV Q12 [facility] Last Admin: 10/24/17 09:03 Dose: 2 ml Admin: 10/23/17 20:37 Dose: 2 ml Admin: 10/23/17 08:11 Dose: 2 ml Admin: 10/22/17 20:38 Dose: 2 ml Admin: 10/22/17 10:01 Dose: 2 ml Admin: 10/21/17 22:13 Dose: 2 ml Admin: 10/21/17 09:03 Dose: 2 ml Admin: 10/20/17 21:01 Dose: 2 ml Admin: 10/20/17 10:04 Dose: 2 ml Admin: 10/19/17 21:59 Dose: 2 ml Admin: 10/19/17 10:49 Dose: Admin: 10/18/17 22:45 Dose: Not Given Hydromorphone HCl (Dilaudid) 0.5 mg IV Q2HP PRN PRN Reason: PAIN LEVEL > 6 Last Admin: 10/24/17 11:12 Dose: 0.5 mg Admin: 10/24/17 09:05 Dose: 0.5 mg Admin: 10/24/17 07:01 Dose: 0.5 mg Admin: 10/24/17 03:48 Dose: 0.5 mg Admin: 10/24/17 01:34 Dose: 0.5 mg Admin: 10/23/17 22:54 Dose: 0.5 mg Admin: 10/23/17 17:58 Dose: 0.5 mg Admin: 10/23/17 14:25 Dose: 0.5 mg Admin: 10/23/17 11:34 Dose: 0.5 mg Admin: 10/23/17 09:14 Dose: 0.5 mg Admin: 10/23/17 06:38 Dose: 0.5 mg Admin: 10/23/17 04:22 Dose: 0.5 mg Admin: 10/22/17 20:36 Dose: 0.5 mg Admin: 10/22/17 16:11 Dose: 0.5 mg Admin: 10/22/17 13:39 Dose: 0.5 mg Admin: 10/22/17 10:50 Dose: 0.5 mg Admin: 10/22/17 07:56 Dose: 0.5 mg Admin: 10/22/17 05:41 Dose: 0.5 mg Admin: 10/22/17 01:51 Dose: 0.5 mg Admin: 10/21/17 20:18 Dose: 0.5 mg Admin: 10/21/17 16:37 Dose: 0.5 mg Admin: 10/21/17 14:33 Dose: 0.5 mg Admin: 10/21/17 11:55 Dose: 0.5 mg Admin: 10/21/17 08:08 Dose: 0.5 mg Admin: 10/21/17 05:08 Dose: 0.5 mg Admin: 10/21/17 02:02 Dose: 0.5 mg Admin: 10/21/17 00:05 Dose: 0.5 mg Admin: 10/20/17 21:06 Dose: 0.5 mg Admin: 10/20/17 17:45 Dose: 0.5 mg Admin: 10/20/17 15:32 Dose: 0.5 mg Admin: 10/20/17 12:06 Dose: 0.5 mg Admin: 10/20/17 08:48 Dose: 0.5 mg Admin: 10/19/17 23:22 Dose: 0.5 mg Admin: 10/19/17 19:51 Dose: 0.5 mg Admin: 10/19/17 17:44 Dose: 0.5 mg Admin: 10/19/17 15:43 Dose: 0.5 mg Admin: 10/19/17 13:38 Dose: 0.5 mg Admin: 10/19/17 10:33 Dose: 0.5 mg Admin: 10/19/17 08:07 Dose: 0.5 mg Admin: 10/19/17 03:19 Dose: 0.5 mg Admin: 10/19/17 01:04 Dose: 0.5 mg Admin: 10/18/17 22:57 Dose: 0.5 mg Admin: 10/18/17 20:47 Dose: 0.5 mg Admin: 10/18/17 18:48 Dose: 0.5 mg Admin: 10/18/17 16:35 Dose: 0.5 mg Metronidazole (Flagyl) 500 mg in 100 mls @ 100 mls/hr IV Q8H [facility] Last Admin: 10/24/17 14:44 Dose: Admin: 10/24/17 05:57 Dose: 100 mls/hr Infusion: 10/23/17 23:55 Dose: 0 mls/hr Admin: 10/23/17 22:55 Dose: 100 mls/hr Infusion: 10/23/17 15:46 Dose: 0 mls/hr Admin: 10/23/17 14:26 Dose: 100 mls/hr Infusion: 10/23/17 06:20 Dose: 0 mls/hr Admin: 10/23/17 05:22 Dose: 100 mls/hr Infusion: 10/22/17 23:12 Dose: 0 mls/hr Admin: 10/22/17 22:02 Dose: 100 mls/hr Infusion: 10/22/17 15:16 Dose: 100 mls/hr Admin: 10/22/17 14:16 Dose: 100 mls/hr Infusion: 10/22/17 06:48 Dose: 0 mls/hr Admin: 10/22/17 05:48 Dose: 100 mls/hr Infusion: 10/21/17 23:15 Dose: 100 mls/hr Admin: 10/21/17 22:15 Dose: 100 mls/hr Infusion: 10/21/17 16:31 Dose: 0 mls/hr Admin: 10/21/17 15:31 Dose: 100 mls/hr Infusion: 10/21/17 07:47 Dose: 0 mls/hr Admin: 10/21/17 05:27 Dose: 100 mls/hr Infusion: 10/21/17 00:45 Dose: 0 mls/hr Admin: 10/20/17 23:43 Dose: 100 mls/hr Infusion: 10/20/17 16:03 Dose: 0 mls/hr Admin: 10/20/17 14:49 Dose: 100 mls/hr Infusion: 10/20/17 07:20 Dose: 0 mls/hr Admin: 10/20/17 05:33 Dose: 100 mls/hr Infusion: 10/19/17 23:10 Dose: 0 mls/hr Admin: 10/19/17 22:03 Dose: 100 mls/hr Infusion: 10/19/17 18:43 Dose: 0 mls/hr Infusion: 10/19/17 15:00 Dose: 100 mls/hr Admin: 10/19/17 14:19 Dose: 100 mls/hr Infusion: 10/19/17 13:11 Dose: 0 mls/hr Admin: 10/19/17 06:17 Dose: 100 mls/hr Infusion: 10/19/17 00:20 Dose: 0 mls/hr Admin: 10/18/17 23:17 Dose: 100 mls/hr Calcium Gluconate 4.65 meq/Multivitamins/Minerals 10 ml/Selenium 60 mcg/ Potassium Chloride 20 meq/ Magnesium Sulfate 8.12 meq/ Potassium Phosphate 10 meq/ Amino Acids 1,035.7727 mls @ 40 mls/hr IV Q24H [facility] Last Admin: 10/24/17 12:11 Dose: Infusion: 10/24/17 11:12 Dose: 0 mls/hr Admin: 10/23/17 09:43 Dose: 40 mls/hr Insulin Human Lispro (Humalog) 0 unit SQ Q6 [facility] PRN Reason: Protocol Last Admin: 10/24/17 12:16 Dose: 10 unit Admin: 10/24/17 06:01 Dose: 2 unit Admin: 10/24/17 00:03 Dose: 2 unit Admin: 10/23/17 18:01 Dose: 6 unit Admin: 10/23/17 11:52 Dose: 8 unit Admin: 10/23/17 05:23 Dose: 2 unit Admin: 10/22/17 23:39 Dose: 4 unit Admin: 10/22/17 16:15 Dose: 6 unit Admin: 10/22/17 13:15 Dose: 8 unit Admin: 10/22/17 05:39 Dose: 4 unit Admin: 10/22/17 00:24 Dose: 4 unit Admin: 10/21/17 17:26 Dose: 8 unit Admin: 10/21/17 12:25 Dose: 6 unit Admin: 10/21/17 05:46 Dose: 4 unit Admin: 10/20/17 23:44 Dose: 4 unit Admin: 10/20/17 17:32 Dose: 6 unit Admin: 10/20/17 12:07 Dose: 6 unit Admin: 10/20/17 05:39 Dose: 2 unit Admin: 10/20/17 00:48 Dose: 2 unit Admin: 10/19/17 17:57 Dose: 6 unit Admin: 10/19/17 12:06 Dose: 2 unit Admin: 10/19/17 06:03 Dose: 2 unit Admin: 10/19/17 01:02 Dose: 2 unit Admin: 10/18/17 18:47 Dose: 4 unit Levothyroxine Sodium (Synthroid) 250 mcg PO QAMAC [facility] Last Admin: 10/24/17 07:01 Dose: 250 mcg Admin: 10/23/17 08:21 Dose: 250 mcg Lorazepam (Ativan) 0.5 mg IV Q6HP PRN PRN Reason: ANXIETY/SEDATION Last Admin: 10/23/17 20:41 Dose: 0.5 mg Admin: 10/22/17 20:36 Dose: 0.5 mg Admin: 10/21/17 22:35 Dose: 0.5 mg Admin: 10/20/17 21:05 Dose: 0.5 mg Admin: 10/20/17 00:13 Dose: 0.5 mg Admin: 10/19/17 01:03 Dose: 0.5 mg Multivitamins (Thera-Plus) 5 ml PO DAILY [facility] Last Admin: 10/24/17 09:02 Dose: 5 ml Admin: 10/23/17 08:13 Dose: Not Given Admin: 10/22/17 10:00 Dose: 5 ml Admin: 10/21/17 09:01 Dose: Not Given Admin: 10/20/17 10:03 Dose: Not Given Admin: 10/19/17 10:49 Dose: Not Given Linaclotide (Linzess () 145mg Cap) 1 dose PO DAILY [facility] Last Admin: 10/24/17 09:02 Dose: 1 dose Admin: 10/23/17 08:14 Dose: 1 dose Admin: 10/22/17 10:03 Dose: 1 dose Admin: 10/21/17 09:01 Dose: Not Given Admin: 10/20/17 10:02 Dose: Not Given Admin: 10/19/17 10:47 Dose: Not Given Ondansetron HCl (Zofran) 4 mg IV Q6HP PRN PRN Reason: Nausea And Vomiting Last Admin: 10/18/17 16:32 Dose: 4 mg Pantoprazole Sodium (Protonix) 40 mg PO [facility] Last Admin: 10/23/17 20:37 Dose: 40 mg Admin: 10/22/17 20:35 Dose: 40 mg Phenol (Chloroseptic [place]) 5 spray SSP Q2HP PRN PRN Reason: Sore Throat Last Admin: 10/20/17 21:06 Dose: 5 spray Admin: 10/20/17 19:38 Dose: 5 spray Prednisone (Prednisone) 20 mg PO [facility] Last Admin: 10/24/17 09:02 Dose: 20 mg Admin: 10/23/17 08:09 Dose: 20 mg Prochlorperazine Edisylate (Compazine) 10 mg IV Q6HP PRN PRN Reason: Nausea And Vomiting Last Admin: 10/20/17 00:00 Dose: 10 mg Admin: 10/19/17 15:54 Dose: 10 mg Promethazine HCl (Phenergan) 12.5 mg IV Q4HP PRN PRN Reason: Nausea And Vomiting Last Admin: 10/19/17 20:10 Dose: 12.5 mg Admin: 10/19/17 11:56 Dose: 12.5 mg Admin: 10/19/17 05:50 Dose: 12.5 mg Admin: 10/18/17 21:20 Dose: 12.5 mg Sodium Chloride (Saline Flush) 10 ml IV Q12 [facility] Last Admin: 10/24/17 09:03 Dose: 10 ml Admin: 10/23/17 20:38 Dose: 10 ml Admin: 10/23/17 08:10 Dose: 10 ml Admin: 10/22/17 20:37 Dose: 10 ml Admin: 10/22/17 10:04 Dose: 10 ml Admin: 10/22/17 05:40 Dose: 10 ml Admin: 10/22/17 04:12 Dose: 10 ml Admin: 10/21/17 22:14 Dose: 10 ml Admin: 10/21/17 09:01 Dose: 10 ml Admin: 10/20/17 21:01 Dose: 10 ml Admin: 10/20/17 10:02 Dose: 10 ml Admin: 10/19/17 22:02 Dose: 10 ml Admin: 10/19/17 10:47 Dose: Admin: 10/18/17 22:47 Dose: Not Given Tramadol HCl (Ultram) 100 mg PO Q6HP PRN PRN Reason: Pain Last Admin: 10/23/17 03:06 Dose: 100 mg Admin: 10/22/17 18:47 Dose: 100 mg Shift Summary 10/24/17 04:17 Shift Summary by Chacha Eaton Alert and oriented. Complained of moments of nausea but not enough for meds. Medicated with dilaudid x3 for shoulder pain, she is tolerating the abdominal pain. Up ad rainer in room, voiding QS in BR. TPN being weaned, this bag should be last bag. Double lumen PICC to left arm, sluggish but flushes, no blood return. Colostomy put out about 150mls of loose stool. Hopes to d/c today. Initialized on 10/24/17 04:17 - END OF NOTE
[2017-10-24] MEDS ORDERED: ACETAMINOPHEN W/CODEINE #3 1 TABLET PO PRN (17:09)
[2017-10-24] MEDS ORDERED: NITROGLYCERIN 0.4 MG PO PRN (17:09)
[2017-10-24] MEDS ORDERED: OXYCODONE HCL PO PRN (17:09)
[2017-10-24] MEDS ORDERED: AMOXICILLIN/POTASSIUM CLAV 500 MG TABLET PO SCH (17:15)
[2017-10-24] MEDS ORDERED: NON FORMULARY MEDICATION 1 DOSE MISCELL (Omeprazole 20 MG) PO SCH (21:00)
[2017-10-24] MEDS ORDERED: DULoxetine 30 MG CAPSULE PO SCH (21:00)
[2017-10-24] MEDS ORDERED: CALCITRIOL 0.25 MCG PO SCH (21:00)
[2017-10-24] MEDS ORDERED: POLYETHYLENE GLYCOL 3350 17 GM PACKET PO SCH (21:00)
[2017-10-24] MEDS ORDERED: CALCIUM CARBONATE 1,250 MG/5 ML ORAL.SUSP PO SCH (21:00)
[2017-10-24] MEDS ORDERED: ACETAMINOPHEN 500 MG TABLET PO SCH (21:00)
[2017-10-25] MEDS ORDERED: LEVOTHYROXINE 125 MCG TABLET PO SCH (07:30)
[2017-10-25] MEDS ORDERED: predniSONE 20 MG TABLET PO SCH (08:00)
[2017-10-25] MEDS ORDERED: LINACLOTIDE 72 MCG PO SCH (09:00)
--- NOTE | 2017-10-28 12:41 | Operative Note ---
DATE OF OPERATION: 10/17/2017 PREOPERATIVE DIAGNOSIS: Small-bowel obstruction due to adhesions. POSTOPERATIVE DIAGNOSIS: Small-bowel obstruction due to adhesions. PROCEDURE: Exploratory laparotomy with adhesiolysis. SURGEON: Bertha Currie M.D. FINDINGS: Tight adhesive bands from the rectal pouch in the pelvis to the base of the small bowel mesentery with internal hernia and total obstruction of the distal small bowel. DESCRIPTION: Under general anesthesia, the patient's abdomen was prepped and draped in a sterile field. The old midline incision was opened. The peritoneal cavity had some free fluid and multiple dilated loops of bowel. The bowel was pulled from the abdominal cavity. In the pelvis, there was an internal hernia created by adhesive bands from the rectal pouch to the base of the small bowel mesentery creating an internal hernia through which the loop of small bowel had herniated, and this was also stuck down to the inflammation at the top of the rectal pouch. The adhesions were lysed with Metzenbaum scissors. The bowel was then from the pelvis using finger dissection. Copious irrigation was carried out. The inflammatory peel on the bowel was removed using a dry sponge. The bowel was then straightened and followed from the terminal ileum to the ligament of Treitz. Next, a large volume of liquid was then milked back into the duodenum and the stomach. 3700 mL of fluid was removed. The bowel was then pushed back into the peritoneal cavity. Sponge, needle, instrument, and blade counts were verified as correct. Fascia and peritoneum were closed using running #1 Prolene. Subcutaneous tissue was closed with 2-0 Monocryl. Skin was closed with kori. The patient was successfully awakened and was transferred to the postanesthetic care unit in stable, satisfactory condition. [email or web address] Job ID: [id number] Doc ID: [id number] Bertha Currie M.D. MTDAustin
== END 2017-10-24 17:20 | disposition home or self-care (01) | DRG 335 ==
LOC: ED 13:43 → ICU 20:22 → MEDSUR 10-04 14:26 → ICU 10-16 14:06 → MEDSUR 10-21 18:14
PROVIDERS: ADMIT Internal Medicine; ATTEND Family Medicine Adult Medicine

== ENCOUNTER 2017-11-28 19:26 | Inpatient (IN) ==
[2017-11-28] MEDS ORDERED: PROMETHAZINE 25 MG/ML VIAL IV ONE ×3 (19:51→22:46)
[2017-11-28] MEDS ORDERED: 0.9 % SODIUM CHLORIDE 1,000 ML IV ONE ×2 (19:51→21:59)
[2017-11-28] MEDS: HYDROmorphone 2 MG/ML VIAL IV PRN ×2 (20:13→20:45)
[2017-11-28 20:39] LABS: Basophils # (Auto) 0 K/mcL (0.0-0.3); Basophils % (Auto) 0.3 % (0.0-2.0); Eosinophils # (Auto) 0.2 K/mcL (0.0-0.7); Eosinophils % (Auto) 1.6 % (0.0-7.0); Granulocytes % (Auto) 66.7 % (38.0-78.0); Lymphocytes # (Auto) 3.2 K/mcL (1.5-4.8); Lymphocytes % (Auto) 22.8 % (15.5-49.0); Mean Cell Volume 86.9 fL (80.0-100.0); Mean Corpuscular HGB Conc 33.1 g/dL (31.0-36.0); Mean Corpuscular Hemoglobin 28.7 pg (26.0-34.0); Monocytes # (Auto) 1.2 K/mcL (0.1-0.9); Monocytes % (Auto) 8.6 % (1.0-12.0); Platelet Count 507 K/mcL (140-440); RBC 5.46 M/mcL (4.00-5.20); Red Cell Distribution Width 14.2 % (11.5-14.5)
[2017-11-28 21:00] LABS: ALT/SGPT 155 U/l (0-40); Albumin/Globulin Ratio 1.1 (1.0-2.3); Alkaline Phosphatase 118 U/L (39-117); Amylase 32 U/L (28-100); Blood Urea Nitrogen 12 mg/dl (6-20); Lipase 15 U/L (7-60)
[2017-11-28] MEDS ORDERED: CALCIUM GLUCONATE 7 MEQ in DEXTROSE 5% IN WATER 50 ML IV ONE (21:58)
--- NOTE | 2017-11-28 23:06 | Emergency Department Note ---
Abdominal Pain HPI - General Chief Complaint: Constipation Stated Complaint: Constipation Time Seen by Provider: 11/28/17 19:38 Source: patient Mode of arrival: wheelchair Limitations: no limitations - History of Present Illness HPI Narrative: 56-year-old female comes in with a proximal 4 hour history of nausea diaphoresis and early pain. She has had multiple small bowel obstructions in the past as well as has an ostomy bag after colon resection for megacolon. She did take some milk of magnesia but this did not help out with her current symptoms. She did have a normal stool last night. She sees Dr. Parviz Currie for surgery-I reviewed his most recent notes. - Related Data Home Medications Medication Instructions Recorded Confirmed DULoxetine [Cymbalta] 30 mg PO BID 11/30/16 11/05/17 Linaclotide [Linzess] 72 mcg PO DAILY 11/30/16 11/05/17 Levothyroxine [Synthroid] 250 mcg PO QAMAC 08/20/17 11/05/17 Acetaminophen W/Codeine #3 2 cap PO Q4-6HP PRN 09/18/17 11/05/17 [Tylenol #3] Calcium Carbonate 1,200 mg PO BID 09/18/17 11/05/17 Naproxen (Pp) [Aleve (Pp)] 2 tab PO BID 09/18/17 11/05/17 Polyethylene Glycol 3350 [Miralax] 17 gm PO BID 09/18/17 11/05/17 Acetaminophen [Tylenol Extra 2 tab PO BID 10/06/17 11/05/17 Strength] calcitriol 0.25 mcg capsule 0.5 mcg PO TID cap 11/05/17 11/05/17 nitroglycerin 0.4 mg sublingual 0.4 mg SUBLINGUAL Q5M PRN 11/05/17 11/05/17 tablet omeprazole 20 mg capsule,delayed 20 mg PO BID 11/05/17 11/05/17 release Previous Rx's Medication Instructions Recorded predniSONE [Prednisone] 20 mg PO QAMCC #4 tab 05/18/16 oxyCODONE HCL/ACETAMINOPHEN 1 each PO Q4HP PRN #30 tab 10/24/17 [Endocet 10-325 mg Tablet] Allergies Allergy/AdvReac Type Severity Reaction Status Date / Time Sulfa (Sulfonamide Allergy Severe Anaphylaxis Verified 11/05/17 09:43 Antibiotics) metoclopramide [From Reglan] AdvReac Intermediate Anxiety Verified 11/05/17 09: 43 steri strips Allergy Severe Blister Uncoded 11/05/17 09:43 Review of Systems All systems ED: reviewed and negative except as stated. Abdominal Pain PMH - Past Medical History Attestation: Yes: The following information was validated with the patient. Medical history: Reports: COPD, hypertension, other (connective tissue diseases including Sjogren's, sarcoidosis, myasthenia gravis. achalasia, small bowel obstructions. 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 Normocephalic atraumatic. Conjunctive are clear sclerae nonicteric. No nasal discharge or congestion. Oropharynx is pink and moist. Neck is supple without lymphadenopathy or thyromegaly. Heart is regular rate and rhythm no murmur appreciated. Lungs are clear to auscultation bilaterally wheezes rales rhonchi or respiratory distress. Abdomen soft but diffusely tender. She is having dry is in my presence. Noted. Ostomy bag shows veronika colored liquid stool. No hematochezia or melena. Midline belly scar from previous surgeries. Trace pedal edema bilaterally. Alert oriented able to answer questions appropriately. No dysarthria or ataxia Limitations: no limitations Course Vital Signs Temperature 96.6 F L 11/28/17 19:27 Pulse Rate 154 H 11/28/17 19:27 Respiratory Rate 11/28/17 19:27 Blood Pressure 122/110 11/28/17 19:27 Pulse Oximetry (%) 92 11/28/17 19:27 Temperature 96.6 F L 11/28/17 19:27 Pulse Rate 120 H 11/28/17 22:04 Respiratory Rate 19 11/28/17 22:04 Blood Pressure 152/98 11/28/17 22:04 Pulse Oximetry (%) 92 11/28/17 22:04 Abdominal Pain - Lab Data Lab results reviewed: Yes I reviewed the patient's lab results. Result diagrams: 11/28/17 20:05 11/28/17 20:05 Lab Results 11/28/17 11/28/17 11/28/17 Range/Units 20:05 20:05 20:05 WBC 14.1 H (4.5-11.0) K/mcL RBC 5.46 H (4.00-5.20) M/mcL Hgb 15.7 H (12.0-15.0) g/dL Hct 47.5 (36.0-48.0) % POC Hct 49.0 H (36.0-48.0) % MCV 86.9 (80.0-100.0) fL MCH 28.7 (26.0-34.0) pg MCHC 33.1 (31.0-36.0) g/dL RDW 14.2 (11.5-14.5) % Plt Count 507 H (140-440) K/mcL MPV 8.3 (7.4-10.4) fL Gran % 66.7 (38.0-78.0) % Lymph % (Auto) 22.8 (15.5-49.0) % [place] % (Auto) 8.6 (1.0-12.0) % Eos % (Auto) 1.6 (0.0-7.0) % Baso % (Auto) 0.3 (0.0-2.0) % Gran # 9.4 H (1.8-8.0) K/mcL Lymph # (Auto) 3.2 (1.5-4.8) K/mcL [place] # (Auto) 1.2 H (0.1-0.9) K/mcL Eos # (Auto) 0.2 (0.0-0.7) K/mcL Baso # (Auto) 0 (0.0-0.3) K/mcL VBG Lactic Acid 2.3 H (0.5-2.2) mmol/L POC Sodium 136 (133-145) mmol/L Sodium 135 (133-145) mmol/L POC Potassium 3.8 (3.3-5.1) mmol/L Potassium 3.9 (3.3-5.1) mmol/L POC Chloride 103 (96-108) mmol/L Chloride 96 (96-108) mmol/L Carbon Dioxide 17 L (22-30) mmol/L POC Total CO2 20 L (22-30) mmol/L Anion Gap 22.0 H (8-16) POC BUN 13 (6-20) mg/dl BUN 12 (6-20) mg/dl Creatinine 0.7 (0.6-1.1) mg/dl POC Creatinine 0.5 L (0.6-1.1) mg/dl GFR Calculation 98 Glucose 196 H (70-105) mg/dL POC Glucose 209 H (70-105) mg/dL Calcium 7.6 L (8.6-10.4) mg/dl POC WB Ioniz Calcium 0.76 L (1.16-1.32) mmol/L Magnesium (1.6-2.5) mg/dL Total Bilirubin 0.3 (0.0-1.0) mg/dL AST 117 H (0-37) U/l ALT 155 H (0-40) U/l Alkaline Phosphatase 118 H (39-117) U/L Total Protein 7.6 (5.9-8.4) gm/dL Albumin 4.0 (3.2-5.2) gm/dL Globulin 3.6 (2.2-3.7) gm/dL Albumin/Globulin Ratio 1.1 (1.0-2.3) Amylase 32 (28-100) U/L Lipase 15 (7-60) U/L PTH Intact (15-65) pg/ml 11/28/17 11/28/17 Range/Units 20:05 20:05 WBC (4.5-11.0) K/mcL RBC (4.00-5.20) M/mcL Hgb (12.0-15.0) g/dL Hct (36.0-48.0) % POC Hct (36.0-48.0) % MCV (80.0-100.0) fL MCH (26.0-34.0) pg MCHC (31.0-36.0) g/dL RDW (11.5-14.5) % Plt Count (140-440) K/mcL MPV (7.4-10.4) fL Gran % (38.0-78.0) % Lymph % (Auto) (15.5-49.0) % [place] % (Auto) (1.0-12.0) % Eos % (Auto) (0.0-7.0) % Baso % (Auto) (0.0-2.0) % Gran # (1.8-8.0) K/mcL Lymph # (Auto) (1.5-4.8) K/mcL [place] # (Auto) (0.1-0.9) K/mcL Eos # (Auto) (0.0-0.7) K/mcL Baso # (Auto) (0.0-0.3) K/mcL VBG Lactic Acid (0.5-2.2) mmol/L POC Sodium (133-145) mmol/L Sodium (133-145) mmol/L POC Potassium (3.3-5.1) mmol/L Potassium (3.3-5.1) mmol/L POC Chloride (96-108) mmol/L Chloride (96-108) mmol/L Carbon Dioxide (22-30) mmol/L POC Total CO2 (22-30) mmol/L Anion Gap (8-16) POC BUN (6-20) mg/dl BUN (6-20) mg/dl Creatinine (0.6-1.1) mg/dl POC Creatinine (0.6-1.1) mg/dl GFR Calculation Glucose (70-105) mg/dL POC Glucose (70-105) mg/dL Calcium (8.6-10.4) mg/dl POC WB Ioniz Calcium (1.16-1.32) mmol/L Magnesium 2.1 (1.6-2.5) mg/dL Total Bilirubin (0.0-1.0) mg/dL AST (0-37) U/l ALT (0-40) U/l Alkaline Phosphatase (39-117) U/L Total Protein (5.9-8.4) gm/dL Albumin (3.2-5.2) gm/dL Globulin (2.2-3.7) gm/dL Albumin/Globulin Ratio (1.0-2.3) Amylase (28-100) U/L Lipase (7-60) U/L PTH Intact 1.6 L (15-65) pg/ml - Radiology Data Radiology results reviewed: Yes I reviewed the patient's radiology results. X-ray of the abdomen 2 views shows distended stomach and bowel with gas. But no air-fluid levels or free air. - EKG Data EKG attestation: Yes I reviewed and interpreted this EKG. EKG results narrative: EKG shows a rate of 134 sinus tachycardia with Q waves in III and aVF. Very mild T-wave depression millimeter or less in 1 and aVL Disposition Pt seen by TILE SETTER APPRENTICE/PA only: No Clinical Impression: Hypocalcemia, Volume depletion, Ileus, Pseudoobstruction of colon, Abnormal liver enzymes Summary: Seen and evaluated; laboratory ordered as well as x-ray of the abdomen. Given Dilaudid Phenergan and IV fluids X-ray showed gas-filled dilated bowel and stomach. She does have a leukocytosis , elevated liver enzymes and lactic acidosis. Started calcium gluconate for hypocalcemia Ordered urinalysis but was not done secondary to patient not urinating despite getting IV fluids. Creatinine was normal NG tube was placed with good return of fluid. Discussed case with Dr. Parviz Currie who agreed to accept the patient for further care. Will start Levaquin and Flagyl. Also start Relistor Disposition: Xfer As Inpt ([facility]) Condition: Serious
[2017-11-28] MEDS ORDERED: PROMETHAZINE 25 MG/ML VIAL IM PRN (23:08)
[2017-11-28] MEDS ORDERED: NALOXONE HCL 0.4 MG/ML VIAL IV PRN (23:08)
[2017-11-28] MEDS ORDERED: oxyCODONE/APAP 5/325MG TABLET PO PRN (23:08)
[2017-11-28] MEDS ORDERED: ACETAMINOPHEN 325 MG TABLET PO PRN (23:08)
[2017-11-28] MEDS ORDERED: LEVOFLOXACIN 500 MG/100 ML BAG IV SCH (23:15)
[2017-11-29] MEDS: 0.9 % SODIUM CHLORIDE 1,000 ML IV SCH ×5 (00:46→23:40)
[2017-11-29] MEDS: HYDROmorphone 2 MG/ML VIAL IV PRN ×6 (01:02→17:56)
[2017-11-29] MEDS: metroNIDAZOLE 500 MG/100 ML BAG IV SCH ×5 (01:19→22:22)
[2017-11-29] MEDS: PROCHLORPERAZINE 10 MG/2 ML VIAL IV PRN (04:14)
--- NOTE | 2017-11-29 05:46 | XRay Report ---
CLINICAL INFORMATION: NG insertion COMPARISON: 11/28/2017 2103 hour FINDINGS: NG tube overlies the gastric body. Stomach and multiple loops of small bowel are mildly dilated compatible with small bowel obstruction. No free air or soft tissue mass. IMPRESSION: NG tube in satisfactory position the gastric body. Small bowel obstruction pattern - unchanged Interpreted and Authenticated by: All Lundberg 11/29/17
--- NOTE | 2017-11-29 05:55 | XRay Report ---
CLINICAL INFORMATION: Abdominal pain and distention COMPARISON: 10/23/2017 FINDINGS: The stomach and multiple loops of upper small bowel are moderately dilated and contain air-fluid levels. A few loops of distal small bowel and colon appear decompressed. Findings compatible with distal small bowel obstruction. No free air or soft tissue mass IMPRESSION: Mid small bowel obstruction Interpreted and Authenticated by: All Lundberg 11/29/17
[2017-11-29] MEDS: CALCITRIOL 0.25 MCG CAPSULE PO SCH ×3 (10:07→20:20)
[2017-11-29] MEDS: METHYLNALTREXONE BROMIDE 12 MG/0.6 ML SYRINGE SC SCH ×2 (10:07→12:24)
[2017-11-29] MEDS: DULoxetine 30 MG CAPSULE PO SCH ×2 (10:07→20:20)
[2017-11-29] MEDS: CALCIUM CARBONATE 500 MG TAB.CHEW CHEWED SCH ×2 (10:07→20:20)
[2017-11-29] MEDS ORDERED: BENZOCAINE 1 SPRAY BOTTLE TOPICAL PRN (10:56)
--- NOTE | 2017-11-29 11:08 | General Surg History&Physical ---
History of Present Illness Patient information: Note initiated : 11/29/17 at 11:06 am Service Date, if different from initiated Date: [] Patient: Dayanna Stephens a 56 y/o F admitted on 11/28/17 for Constipation. Chief Complaint: [] HPI: Ms. Stephens is a 56 year old F admitted with h/o crampy abdominal pain and watery diarrhea. She has a history of chronic intestinal pseudoobstruction. She was admitted in September and had colonic and small bowel obstruction due to adhesions. A simple adhesio lysis was done she recovered uneventfully. The patient has been noting more watery diarrhea over the last few weeks. She has had some crampy pain which resolved with milk of magnesia. She has had no nausea on a daily basis. 3 hours before coming to the emergency room she had emesis multiple times. She also noted upper abdominal bloating. She has been taking Tylenol 3 tablets every 4 hours as needed for pain. Patient has dilated proximal bowel and colon and is felt to have either exacerbation of her pseudoobstruction or recurrent adhesions. A CT was not done last evening so it will be done today. Review of Systems - Constitutional fatigue, headache(s), malaise, weakness, weight loss - EENT Nose, mouth and throat: headache(s) - Cardiovascular chest pain with activity, dyspnea on exertion, palpatations, rapid heart rate - Respiratory dyspnea on exertion - Gastrointestinal abdominal pain, bloating, change in stool character, diarrhea, loose stools, nausea, vomiting - Genitourinary Genitourinary: difficulty urinating, urinary frequency, urinary incontinence - Musculoskeletal arthralgias, joint swelling, muscle weakness, myalgias, stiffness - Integumentary no changing lesions, no new lesions, no pruritus, no rash - Neurological headache(s), no confusion, no focal weakness, no numbness, no tremor(s) - Psychiatric depression - Endocrine fatigue, heat intolerance, palpitations - Hematologic/Lymphatic no easy bleeding, no easy bruising, no lymphadenopathy - Allergic/Immunologic no tongue swelling, no throat swelling, no uticaria, no wheezing, no lip swelling Past History Past medical history: Sjogren's syndrome Chronic obstructive lung disease Sarcoidosis Myasthenia gravis History of achalasia Osteoarthritis Hypothyroidism Chronic intestinal megacolon Past surgical history: Cholecystectomy Left knee meniscectomy Thymectomy Heller myotomy with toupee fundoplication Umbilical hernia repair Sigmoid colectomy with colostomy Exploratory laparotomy with adhesiolysis Past family history: Mother with coronary artery disease Father coronary artery disease Past social history: former smoker Social drinker Denies drug use Medications and Allergies Home Medications Medication Instructions Recorded Confirmed Type predniSONE [Prednisone] 20 mg PO QAMCC #4 tab 05/18/16 11/29/17 Rx DULoxetine [Cymbalta] 30 mg PO BID 11/30/16 11/29/17 History Linaclotide [Linzess] 72 mcg PO DAILY 11/30/16 11/29/17 History Levothyroxine [Synthroid] 250 mcg PO QAMAC 08/20/17 11/29/17 History Acetaminophen W/Codeine #3 2 cap PO Q4-6HP PRN 09/18/17 11/29/17 History [Tylenol #3] Calcium Carbonate 1,200 mg PO BID 09/18/17 11/29/17 History Naproxen (Pp) [Aleve (Pp)] 2 tab PO BID 09/18/17 11/29/17 History Polyethylene Glycol 3350 [Miralax] 17 gm PO BID 09/18/17 11/29/17 History Acetaminophen [Tylenol Extra 2 tab PO BID 10/06/17 11/29/17 History Strength] oxyCODONE HCL/ACETAMINOPHEN 1 each PO Q4HP PRN #30 tab 10/24/17 11/29/17 Rx [Endocet 10-325 mg Tablet] calcitriol 0.25 mcg capsule 0.5 mcg PO TID cap 11/05/17 11/29/17 History nitroglycerin 0.4 mg sublingual 0.4 mg SUBLINGUAL Q5M PRN 11/05/17 11/29/17 History tablet omeprazole 20 mg capsule,delayed 20 mg PO BID 11/05/17 11/29/17 History release Allergies Allergy/AdvReac Type Severity Reaction Status Date / Time Sulfa (Sulfonamide Allergy Severe Anaphylaxis Verified 11/05/17 09:43 Antibiotics) metoclopramide [From Reglan] AdvReac Intermediate Anxiety Verified 11/05/17 09: 43 steri strips Allergy Severe Blister Uncoded 11/05/17 09:43 Exam Temp Pulse Resp BP Pulse Ox 97.7 F 110 H 16 151/77 94 11/29/17 04:00 11/29/17 04:00 11/29/17 09:11 11/29/17 04:00 11/29/17 09:11 - General physical appearance well developed, well nourished, moderate distress, chronically ill, obese - Eyes PERRL, normal ocular movement - ENT normal pinna, normal nares, normal mucosa, no hearing loss, no congestion - Head Head exam IM: Present: atraumatic, normal inspection, normocephalic - Neck no masses, no bruits, trachea midline, no lymphadectomy, no venous distension - Cardiovascular Cardiovascular exam IM: Present: normal rate and rhythm, RRR, +S1, +S2, tachycardia. Absent: irregular rhythm, JVD - Respiratory normal expansion, normal respiratory effort, clear to percussion, clear to auscultation - Abdomen Abdomen: Present: soft, non tender, bowel sounds, wound (Incision is well-healed ; patent stoma in left lower quadrant). Absent: tender, distended Hernia: Present: none - Genitourinary Present: normal external genitalia - Integumentary Present: no rash, no growths, no abnormal pigmentation - Neurologic Present: normal coordination, normal sensation - Musculoskeletal Present: normal gait, normal posture - Psychiatric Present: oriented to time, oriented to person, oriented to place, speech is normal, memory intact Assessment and Plan (1) Hypocalcemia We will treat with IV calcium gluconate Status: Acute (2) Polyglandular autoimmune syndrome Status: Chronic (3) Myasthenia gravis Status: Acute (4) Supraventricular tachycardia Status: Acute (5) Chronic intestinal pseudo-obstruction CT of abdomen and pelvis with IV and oral contrast Status: Acute (6) Hypertension Resume home medications when capable of taking p.o. Status: Chronic Qualifiers: Hypertension type: essential hypertension Qualified Code(s): I10 - Essential (primary) hypertension
[2017-11-29] MEDS: LEVOFLOXACIN 500 MG/100 ML BAG IV SCH (15:07)
[2017-11-29] MEDS ORDERED: IOPAMIDOL 100 ML BOTTLE IV ONE (15:32)
--- NOTE | 2017-11-29 17:10 | Cat Scan Report ---
CLINICAL INFORMATION: Abdominal pain and distention. Evaluate for recurrent small bowel obstruction COMPARISON: Abdomen and pelvic CT from 10/03/2017 TECHNIQUE: Following enteric contrast, 80 cc of Isovue-300 were injected intravenously, and 60 seconds later, 0.625 mm helical slices were obtained from the mid heart through the subtrochanteric regions. Following reconstruction, 2.5 mm sagittal, coronal and axial reformatted images were processed and reviewed at bone, lung and soft tissue windows. Five minutes later, 0.625 mm helical slices were obtained from the mid heart through the kidneys and viewed at soft tissue windows.The exam was performed using radiation dose optimization techniques including, but not limited to, automated exposure control, adjustment of the mA and/or kV according to patient size and use of iterative reconstruction technique. FINDINGS: Lung bases show no abnormality - no effusion. Visualized heart is normal. Images should the abdomen show minimal fatty change within the liver, but no focal lesion. The gallbladder is surgically absent. Intrahepatic and common bile ducts are normal caliber. Pancreas shows mild atrophy - stable. Both kidneys, adrenal glands, spleen and aorta, including aortic branches, are normal in size, configuration and attenuation without focal lesion. Images through the pelvis show urinary bladder to be normal. Anteflexed postmenopausal uterus spanning 7 x 3.6 cm is unchanged. Sigmoid colectomy, left lower quadrant colostomy and Baez's pouch creation again noted. There is a high-grade colonic obstruction at the splenic flexure due to a stricture or adhesions. The descending colon, through to the colostomy, is markedly decompressed. The ascending and transverse colon, proximal to the obstruction, are moderately dilated. There is actually a second bowel obstruction - an obstruction of the distal ileum in the right lower quadrant likely due to adhesions or stricture. There is seen on coronal image 39 and axial image 140. The duodenum, jejunum and proximal ileum are moderately dilated and there is abrupt narrowing at the level of high-grade obstruction with a diminutive decompressed terminal ileum. No evidence of third spacing or free air. Bone windows show grade 1 spondylolisthesis at L4-5 broad disc protrusion and moderate bilateral IV foraminal narrowing. No other osseous abnormalities. IMPRESSION: 1. High-grade colonic obstruction at the splenic flexure ostensibly related to adhesions or stricture. The descending colon, through the left lower quadrant colostomy, is markedly decompressed 2. High-grade ileal obstruction in the right lower quadrant due to adhesions or stricture. There is no evidence of free air to suggest perforation or free fluid to suggest third spacing 3. Sigmoid colectomy, Baez's pouch creation and left lower quadrant colostomy 4. Mild pancreatic atrophy - stable Interpreted and Authenticated by: All Lundberg 11/29/17
[2017-11-29] MEDS ORDERED: 0.9 % SODIUM CHLORIDE 500 ML IV ONE (18:55)
[2017-11-29] MEDS ORDERED: LORazepam 2 MG/ML VIAL IV PRN (20:01)
[2017-11-29] MEDS ORDERED: HYDROmorphone 2 MG/ML VIAL ONE (20:24)
[2017-11-29] MEDS ORDERED: LEVOTHYROXINE 125 MCG TABLET PO SCH (21:00)
[2017-11-30] MEDS: HYDROmorphone 2 MG/ML VIAL IV PRN ×7 (01:01→19:59)
[2017-11-30] MEDS: 0.9 % SODIUM CHLORIDE 1,000 ML IV SCH ×4 (03:21→21:00)
[2017-11-30] MEDS: metroNIDAZOLE 500 MG/100 ML BAG IV SCH ×3 (06:00→23:55)
[2017-11-30 06:12] LABS: Basophils # (Auto) 0 K/mcL (0.0-0.3); Basophils % (Auto) 0.3 % (0.0-2.0); Eosinophils # (Auto) 0.5 K/mcL (0.0-0.7); Granulocytes % (Auto) 60.2 % (38.0-78.0); Lymphocytes # (Auto) 2.1 K/mcL (1.5-4.8); Lymphocytes % (Auto) 25.4 % (15.5-49.0); Mean Cell Volume 86.7 fL (80.0-100.0); Mean Corpuscular HGB Conc 33.2 g/dL (31.0-36.0); Mean Corpuscular Hemoglobin 28.8 pg (26.0-34.0); Monocytes # (Auto) 0.7 K/mcL (0.1-0.9); Monocytes % (Auto) 8.1 % (1.0-12.0); Platelet Count 282 K/mcL (140-440); RBC 4.73 M/mcL (4.00-5.20); Red Cell Distribution Width 14.4 % (11.5-14.5)
[2017-11-30 06:14] LABS: ALT/SGPT 92 U/l (0-40); Albumin 3.3 gm/dL (3.2-5.2); Albumin/Globulin Ratio 1.3 (1.0-2.3); Alkaline Phosphatase 88 U/L (39-117); Bilirubin,Direct < 0.2 mg/dL (0.0-0.3); Blood Urea Nitrogen 6 mg/dl (6-20); Gamma Glutamyl Transpeptidase 13 U/L (5-36); Uric Acid 4.7 mg/dL (2.5-8.0)
[2017-11-30] MEDS: CALCIUM CARBONATE 500 MG TAB.CHEW CHEWED SCH ×2 (08:03→21:14)
[2017-11-30] MEDS: DULoxetine 30 MG CAPSULE PO SCH ×2 (08:03→21:14)
[2017-11-30] MEDS: CALCITRIOL 0.25 MCG CAPSULE PO SCH ×3 (08:03→21:14)
[2017-11-30] MEDS: PROCHLORPERAZINE 10 MG/2 ML VIAL IV PRN ×2 (08:53→20:09)
[2017-11-30] MEDS ORDERED: CALCIUM GLUCONATE 4.65 MEQ/10 ML VIAL IV ONE (09:15)
[2017-11-30] MEDS ORDERED: MAGNESIUM SULFATE 32.48 MEQ in DEXTROSE 5% IN WATER 50 ML IV SCH (09:30)
[2017-11-30] MEDS: METHYLNALTREXONE BROMIDE 12 MG/0.6 ML SYRINGE SC SCH (09:42)
[2017-11-30] MEDS: LEVOFLOXACIN 500 MG/100 ML BAG IV SCH (09:42)
--- NOTE | 2017-11-30 10:19 | XRay Report ---
CLINICAL INFORMATION: Follow small bowel obstruction COMPARISON: None. FINDINGS: NG tube overlies the gastric body. The stomach and small bowel show slight decrease in caliber suggesting improvement in small bowel obstruction pattern. Enteric contrast is seen in the decompressed distal small bowel loops - below the level of obstruction. Small amounts of enteric contrast from CT are also seen in the right and proximal transverse colon which are mildly dilated. Second suspected obstruction at the level of the splenic flexure, due to a stricture or adhesion, is acknowledged. No free air or soft tissue mass IMPRESSION: 1. Slight improvement in distal small bowel obstruction pattern following NG decompression 2. Partial obstruction of the distal transverse colon, likely due to a stricture or adhesion, is acknowledged from recent CT. It appears unchanged radiographically. If additional radiographic confirmation is required to prove or refute distal colonic narrowing, consider water-soluble contrast injection of the colostomy Interpreted and Authenticated by: All Lundberg 11/30/17
[2017-11-30 10:25] LABS: Appearance,Urine CLEAR; Bilirubin,Urine NEG (NEG); Color,Urine YELLOW; Glucose,Urine (UA) NEGATIVE (NEG); Leukocyte Esterase,Urine NEG /uL (NEG); Protein,Urine NEG (NEG); Specific Gravity,Urine 1.049 (1.000-1.035); Urine Blood NEG mg/dL (<0.03); Urobilinogen,Urine NEG (NEG)
[2017-11-30] MEDS: MAGNESIUM SULFATE 32.48 MEQ in DEXTROSE 5% IN WATER 100 ML IV SCH ×2 (10:50→12:12)
--- NOTE | 2017-11-30 12:10 | General Surgery Progress Note ---
Subjective Patient reports: feels better, still having pain, pain is less, no flatus, bowel movement, diarrhea, afebrile Narrative: Note initiated : 11/30/17 at 12:04 pm Service Date, if different from initiated Date: [] Patient: Dayanna Stephens 56 y/o F admitted on 11/28/17 for Constipation/ Hypocalcemia. Chief Complaint: [Patient states that she feels better but she still having intermittent crampy abdominal pain. She has high-grade nasogastric output however she also has explosive output of liquid stool through her stoma. CT scan this morning shows that she has a high-grade stricture of her colon at the splenic flexure and there is another major stricture in the terminal ileum. I reviewed this with the radiologist. Both of these may be related to adhesive disease since she had a Heller myotomy with fundoplication remotely and she had significant adhesions in her pelvis from the Baez's procedure that was done. I discussed this with the patient and she is informed that she will need to have laparotomy with adhesiolysis. She is agreeable to proceed. Her electrolytes are abnormal so I will need to replace her calcium, magnesium, potassium today in preparation for his surgery tomorrow.] Objective Temp Pulse Resp BP Pulse Ox 97.8 F 91 H 20 143/78 93 11/30/17 06:38 11/30/17 04:00 11/30/17 06:38 11/30/17 06:38 11/30/17 06:38 - Additional Data Intake & Output - Last 24 hours: Intake & Output 11/28/17 11/29/17 11/30/17 12/01/17 05:59 05:59 05:59 05:59 Intake Total 2182.0537 / 2182.0537 2528 / 2528 Output Total 50 / 50 3100 / 3100 Balance 2132.0537 / 2132.0537 -572 / -572 Weight 221 lb 8 oz 222 lb - General physical appearance well developed, well nourished, no distress, chronically ill, obese - Eyes PERRL, normal ocular movement - ENT normal pinna, normal nares, normal mucosa, no hearing loss, no congestion - Neck no masses, no bruits, trachea midline, no lymphadectomy, no venous distension - Respiratory normal respiratory effort, clear to auscultation - Cardiovascular Cardiovascular exam: Present: normal rate and rhythm, RRR, +S1, +S2. Absent: JVD - Abdomen non tender, bowel sounds (present), surgical scars (none), masses (none), distended (Distention is primarily in her upper abdomen) - Integumentary no rash, no growths, no abnormal pigmentation - Neurologic normal coordination, normal sensation - Musculoskeletal normal gait, normal posture - Psychiatric oriented to time, oriented to person, oriented to place, speech is normal, memory intact - Labs 11/30/17 05:15 11/30/17 05:15 Diabetes panel 11/30/17 Range/Units 05:15 Sodium 141 (133-145) mmol/L Potassium 3.1 L (3.3-5.1) mmol/L Chloride 102 (96-108) mmol/L Carbon Dioxide 21 L (22-30) mmol/L BUN 6 (6-20) mg/dl Creatinine 0.6 (0.6-1.1) mg/dl Glucose 84 (70-105) mg/dL Calcium 5.7 L* (8.6-10.4) mg/dl AST 42 H (0-37) U/l ALT 92 H (0-40) U/l Alkaline Phosphatase 88 (39-117) U/L Total Protein 5.8 L (5.9-8.4) gm/dL Albumin 3.3 (3.2-5.2) gm/dL Triglycerides 183 H (<150) mg/dl Calcium panel 11/30/17 Range/Units 05:15 Calcium 5.7 L* (8.6-10.4) mg/dl Phosphorus 4.7 H (2.7-4.5) mg/dL Albumin 3.3 (3.2-5.2) gm/dL Pituitary panel 11/30/17 Range/Units 05:15 Sodium 141 (133-145) mmol/L Potassium 3.1 L (3.3-5.1) mmol/L Chloride 102 (96-108) mmol/L Carbon Dioxide 21 L (22-30) mmol/L BUN 6 (6-20) mg/dl Creatinine 0.6 (0.6-1.1) mg/dl Glucose 84 (70-105) mg/dL Calcium 5.7 L* (8.6-10.4) mg/dl Adrenal panel 11/30/17 Range/Units 05:15 Sodium 141 (133-145) mmol/L Potassium 3.1 L (3.3-5.1) mmol/L Chloride 102 (96-108) mmol/L Carbon Dioxide 21 L (22-30) mmol/L BUN 6 (6-20) mg/dl Creatinine 0.6 (0.6-1.1) mg/dl Glucose 84 (70-105) mg/dL Calcium 5.7 L* (8.6-10.4) mg/dl Total Bilirubin 0.2 (0.0-1.0) mg/dL AST 42 H (0-37) U/l ALT 92 H (0-40) U/l Alkaline Phosphatase 88 (39-117) U/L Total Protein 5.8 L (5.9-8.4) gm/dL Albumin 3.3 (3.2-5.2) gm/dL Assessment and Plan (1) Obstruction of descending colon Status: Acute Assessment and plan: Patient counseled for exploratory laparotomy with adhesion lysis. This will be done in the morning. Current Visit: Yes (2) Hypocalcemia Status: Acute Assessment and plan: Calcium gluconate 2 riders today Current Visit: Yes (3) Polyglandular autoimmune syndrome Status: Chronic Current Visit: No (4) Myasthenia gravis Status: Acute Current Visit: No (5) Supraventricular tachycardia Status: Acute Current Visit: No (6) Chronic intestinal pseudo-obstruction Status: Acute Current Visit: Yes (7) Hypertension Status: Chronic Current Visit: No - Time Spent With Patient Total time spent is greater than 50% in coordination of care (as documented) at patient's floor/unit and/or counseling patient:
[2017-11-30] MEDS: CALCIUM GLUCONATE 9.3 MEQ in DEXTROSE 5% IN WATER 100 ML IV SCH ×3 (13:50→21:08)
[2017-11-30] MEDS: methylPREDNISolone SOD SUCC 125 MG/2 ML VIAL IV SCH ×2 (17:04→22:37)
--- NOTE | 2017-11-30 19:27 | Procedure Note ---
Procedures - Central Line Placement Right IJ Time out performed: Yes Patient placed on monitor/pulse ox: Yes MD prep: mask, sterile gown, sterile gloves, cap Central line prep: 2% Chlorhexidine scrub, large sterile drapes applied, proper hand hygiene Local anesthesia used: lidocaine 1% Amount of anesthesia used (mls): 5 Ultrasound used for placement: Yes Central line lumen inserted: quad, 16 cm Post procedure: sutured in place, good blood return, all ports aspirated, flushed, capped, sterile dressing applied Post procedure x-ray: tip of catheter in good position Patient tolerated procedure: well Complications: none
[2017-11-30] MEDS ORDERED: 0.9 % SODIUM CHLORIDE 1,000 ML IV SCH (19:35)
[2017-11-30] MEDS ORDERED: POTASSIUM CHLORIDE 20 MEQ/10 ML VIAL IV ONE ×2 (20:24)
[2017-11-30] MEDS: POTASSIUM CHLORIDE 40 MEQ in DEXTROSE 5% IN WATER 500 ML IV SCH (20:59)
[2017-11-30 21:40] LABS: ALT/SGPT 71 U/l (0-40); Albumin/Globulin Ratio 1.2 (1.0-2.3); Alkaline Phosphatase 87 U/L (39-117); Bilirubin,Direct < 0.2 mg/dL (0.0-0.3); Blood Urea Nitrogen 3 mg/dl (6-20); Gamma Glutamyl Transpeptidase 13 U/L (5-36); Uric Acid 5.1 mg/dL (2.5-8.0)
[2017-12-01] MEDS: HYDROmorphone 2 MG/ML VIAL IV PRN ×10 (00:25→22:41)
[2017-12-01] MEDS: PROCHLORPERAZINE 10 MG/2 ML VIAL IV PRN (00:35)
[2017-12-01] MEDS: POTASSIUM CHLORIDE 40 MEQ in DEXTROSE 5% IN WATER 500 ML IV SCH (01:09)
[2017-12-01] MEDS: metroNIDAZOLE 500 MG/100 ML BAG IV SCH ×3 (05:47→22:14)
[2017-12-01] MEDS: methylPREDNISolone SOD SUCC 125 MG/2 ML VIAL IV SCH ×3 (05:47→22:14)
[2017-12-01 06:05] LABS: Basophils # (Auto) 0 K/mcL (0.0-0.3); Basophils % (Auto) 0 % (0.0-2.0); Eosinophils # (Auto) 0.1 K/mcL (0.0-0.7); Eosinophils % (Auto) 1.7 % (0.0-7.0); Granulocytes % (Auto) 89.6 % (38.0-78.0); Lymphocytes # (Auto) 0.6 K/mcL (1.5-4.8); Mean Cell Volume 87.1 fL (80.0-100.0); Mean Corpuscular HGB Conc 32.8 g/dL (31.0-36.0); Mean Corpuscular Hemoglobin 28.6 pg (26.0-34.0); Monocytes # (Auto) 0.1 K/mcL (0.1-0.9); Monocytes % (Auto) 0.7 % (1.0-12.0); Platelet Count 311 K/mcL (140-440); RBC 4.32 M/mcL (4.00-5.20)
[2017-12-01 06:28] LABS: ALT/SGPT 59 U/l (0-40); Albumin 2.9 gm/dL (3.2-5.2); Albumin/Globulin Ratio 1.1 (1.0-2.3); Alkaline Phosphatase 83 U/L (39-117); Bilirubin,Direct < 0.2 mg/dL (0.0-0.3); Blood Urea Nitrogen 2 mg/dl (6-20); Gamma Glutamyl Transpeptidase 13 U/L (5-36); Uric Acid 5.5 mg/dL (2.5-8.0)
--- NOTE | 2017-12-01 06:52 | XRay Report ---
CLINICAL INFORMATION: Central line placement COMPARISON: 10/18/2017 FINDINGS: Heart size, mediastinum and pulmonary vessels are normal. Lungs are clear. Chronic elevation right diaphragm again seen. Right IJ central line tip overlies the SVC near the right atrial junction. Left PICC line has been removed since previous x-ray IMPRESSION: No acute disease Right central line in satisfactory position. No complication from line placement Interpreted and Authenticated by: All Lundberg 12/01/17
[2017-12-01] MEDS ORDERED: LEVOTHYROXINE 100 MCG VIAL IV SCH (07:30)
[2017-12-01] MEDS ORDERED: ONDANSETRON 4 MG/2 ML VIAL IV ONE (08:10)
[2017-12-01] MEDS ORDERED: fentaNYL 250 MCG/5 ML VIAL IV ONE (08:10)
[2017-12-01] MEDS ORDERED: ROCURONIUM 10 MG/ML ML IV ONE (08:10)
[2017-12-01] MEDS ORDERED: MIDAZOLAM 5 MG/5 ML VIAL IV ONE (08:10)
[2017-12-01] MEDS ORDERED: LIDOCAINE HCL/PF 100 MG/5 ML SYRINGE IV ONE (08:10)
[2017-12-01] MEDS ORDERED: PROPOFOL 200 MG/20 ML VIAL IV ONE (08:10)
[2017-12-01] MEDS ORDERED: CALCIUM CHLORIDE 1,000 MG/10 ML SYRINGE IV ONE (08:10)
[2017-12-01] MEDS ORDERED: DEXAMETHASONE 10 MG/ML VIAL IV ONE (08:10)
[2017-12-01] MEDS: LEVOFLOXACIN 500 MG/100 ML BAG IV SCH (08:59)
[2017-12-01] MEDS ORDERED: 0.9 % SODIUM CHLORIDE 10 ML SYRINGE IV SCH (09:00)
[2017-12-01] MEDS ORDERED: ATROPINE SULFATE 0.4 MG/ML VIAL IV PRN (09:09)
[2017-12-01] MEDS ORDERED: PROMETHAZINE 25 MG/ML VIAL IV PRN ×2 (09:09→10:32)
[2017-12-01] MEDS ORDERED: NALOXONE HCL 0.4 MG/ML VIAL IV PRN ×2 (09:09→10:32)
[2017-12-01] MEDS ORDERED: diphenhydrAMINE 50 MG/ML VIAL IV PRN (09:09)
[2017-12-01] MEDS ORDERED: METHOCARBAMOL 1,000 MG/10 ML VIAL IV PRN (09:09)
[2017-12-01] MEDS ORDERED: KETOROLAC 30 MG/ML VIAL IV PRN (09:09)
[2017-12-01] MEDS ORDERED: FLUMAZENIL 0.1 MG/ML ML IV PRN (09:09)
[2017-12-01] MEDS ORDERED: METOPROLOL TARTRATE 5 MG/5 ML VIAL IV PRN (09:09)
[2017-12-01] MEDS ORDERED: ePHEDrine 50 MG/ML AMPUL IV PRN (09:09)
[2017-12-01] MEDS ORDERED: fentaNYL 100 MCG/2 ML VIAL IV PRN (09:09)
[2017-12-01] MEDS ORDERED: IPRATROPIUM/ALBUTEROL 3 ML AMPUL.NEB NEB PRN (09:09)
[2017-12-01] MEDS ORDERED: LACTATED RINGERS 1,000 ML IV SCH (09:15)
--- NOTE | 2017-12-01 09:52 | Brief Operative Note ---
Date of procedure: 12/01/17 Pre-op diagnosis: colonic and small bowel obstruction Post-op diagnosis: other (colonic and small bowel obstruction due to adhesions) Procedure: laparotomy with adhesiolysis Grafts/Implants: No Anesthesia: GETA Findings: tight adhesions of omentum to splenic flexure of colon and peritoneum causing obstruction interloop adhesions of terminal ileum causing obstruction Complications: none Surgeon: Bertha Currie Estimated blood loss (cc): 20 Specimens Removed/Pathology: none sent Condition: stable Disposition: PACU
[2017-12-01] MEDS: MEPERIDINE 25 MG/ML SYRINGE IV PRN ×2 (10:03→10:08)
[2017-12-01] MEDS ORDERED: LORazepam 2 MG/ML VIAL IV PRN (10:32)
[2017-12-01] MEDS ORDERED: BENZOCAINE 1 SPRAY BOTTLE TOPICAL PRN (10:32)
[2017-12-01] MEDS ORDERED: PROCHLORPERAZINE 10 MG/2 ML VIAL IV PRN (10:32)
[2017-12-01] MEDS: CALCIUM CARBONATE 500 MG TAB.CHEW CHEWED SCH (10:42)
[2017-12-01] MEDS: CALCITRIOL 0.25 MCG CAPSULE PO SCH (10:42)
[2017-12-01] MEDS: DULoxetine 30 MG CAPSULE PO SCH (10:42)
[2017-12-01] MEDS: 0.9 % SODIUM CHLORIDE 1,000 ML IV SCH ×3 (10:54→19:08)
[2017-12-01] MEDS: METHYLNALTREXONE BROMIDE 12 MG/0.6 ML SYRINGE SC SCH (11:10)
[2017-12-01] MEDS: ACETAMINOPHEN 1,000 MG/100 ML BOTTLE IV PRN ×2 (12:19→19:05)
[2017-12-01] MEDS: PANTOPRAZOLE 40 MG VIAL IV SCH (16:27)
[2017-12-01] MEDS: 0.9 % SODIUM CHLORIDE 10 ML SYRINGE IV SCH (20:50)
[2017-12-01] MEDS: LORazepam 2 MG/ML VIAL IV PRN (22:41)
[2017-12-02] MEDS: HYDROmorphone 2 MG/ML VIAL IV PRN ×9 (01:06→21:20)
[2017-12-02] MEDS: 0.9 % SODIUM CHLORIDE 1,000 ML IV SCH ×3 (02:03→18:44)
[2017-12-02] MEDS: ACETAMINOPHEN 1,000 MG/100 ML BOTTLE IV PRN ×3 (04:27→19:33)
[2017-12-02] MEDS: metroNIDAZOLE 500 MG/100 ML BAG IV SCH ×3 (05:35→21:33)
[2017-12-02] MEDS: methylPREDNISolone SOD SUCC 125 MG/2 ML VIAL IV SCH ×3 (05:36→21:21)
[2017-12-02 06:00] LABS: Basophils # (Auto) 0 K/mcL (0.0-0.3); Basophils % (Auto) 0 % (0.0-2.0); Eosinophils # (Auto) 0.3 K/mcL (0.0-0.7); Eosinophils % (Auto) 2.8 % (0.0-7.0); Granulocytes % (Auto) 87.5 % (38.0-78.0); Lymphocytes # (Auto) 0.6 K/mcL (1.5-4.8); Lymphocytes % (Auto) 6.1 % (15.5-49.0); Mean Cell Volume 87.3 fL (80.0-100.0); Mean Corpuscular HGB Conc 33.5 g/dL (31.0-36.0); Mean Corpuscular Hemoglobin 29.3 pg (26.0-34.0); Monocytes # (Auto) 0.4 K/mcL (0.1-0.9); Monocytes % (Auto) 3.6 % (1.0-12.0); Platelet Count 263 K/mcL (140-440); RBC 3.46 M/mcL (4.00-5.20); Red Cell Distribution Width 14.2 % (11.5-14.5)
[2017-12-02 06:34] LABS: ALT/SGPT 38 U/l (0-40); Albumin 2.5 gm/dL (3.2-5.2); Albumin/Globulin Ratio 1.1 (1.0-2.3); Alkaline Phosphatase 62 U/L (39-117); Bilirubin,Direct < 0.2 mg/dL (0.0-0.3); Blood Urea Nitrogen 4 mg/dl (6-20); Gamma Glutamyl Transpeptidase 10 U/L (5-36)
[2017-12-02] MEDS: PANTOPRAZOLE 40 MG VIAL IV SCH ×2 (07:05→17:51)
[2017-12-02] MEDS: LEVOTHYROXINE 100 MCG VIAL IV SCH (07:06)
--- NOTE | 2017-12-02 08:03 | Operative Note ---
DATE OF OPERATION: 12/01/2017 PREOPERATIVE DIAGNOSIS: Colonic and small bowel obstruction. POSTOPERATIVE DIAGNOSIS: Colonic and small bowel obstructions due to adhesions. PROCEDURE: Exploratory laparotomy with adhesiolysis. SURGEON: Bertha Currie MD FINDINGS: 1. Tight adhesions of omentum to the splenic flexure of the colon and peritoneum causing obstruction. 2. Interloop adhesions of the terminal ileum causing obstruction. DESCRIPTION OF PROCEDURE: Under general anesthesia, the patient's abdomen was prepped and draped in a sterile field. The stoma was sutured closed prior to the prep and draping. A midline incision was made. There were adhesions of the colon and omentum to the anterior abdominal wall which were taken down using electrocautery and Metzenbaum scissors. Exploration revealed dilated colon extending all the way back to the cecum. The colon was followed to the splenic flexure where there were tight adhesions of the omentum to the lateral peritoneal wall and to the colon causing obstruction. These adhesions were taken down sharply using Metzenbaum scissors. This was done until the distal transverse and proximal descending colon were totally free and the bowel leading up to the stoma was free. There were some loops of small bowel stuck behind the stoma. These were pulled from that space. The adhesions were lysed using Metzenbaum scissors. Once this was completed, the terminal ileum was explored. There were three tight adhesive bands from the proximal ileum to the lateral wall and multiple interloop adhesions that were causing a near complete obstruction. These were lysed using Metzenbaum scissors. The bowel was then followed from the ligament of Treitz down to the ileocecal valve and the small bowel was totally free without any kinking or acute angulation. The colon again was followed from the cecum over to the stoma and there was no evidence of compromise of the lumen. All of the bowel was viable, though all was dilated. Peristalsis appeared to be decreased. Irrigation was carried out. Sponge, needle, instrument and blade counts were verified as correct. Fascia and peritoneum was closed with running #1 Prolene. Subcutaneous tissue was closed with running 2-0 Monocryl. Skin was closed with kori. A dressing was placed. The stoma adhesive appliance was placed. The patient tolerated the procedure well. She was awakened and transferred to a bed and taken to the Postanesthetic Care Unit in stable satisfactory condition. LCS:donovan Job ID: [id number] Doc ID: [id number] Bertha Currie M.D.
[2017-12-02] MEDS ORDERED: CALCIUM GLUCONATE 4.65 MEQ/10 ML VIAL IV SCH (09:00)
[2017-12-02] MEDS: 0.9 % SODIUM CHLORIDE 10 ML SYRINGE IV SCH ×2 (09:13→21:29)
[2017-12-02] MEDS: LEVOFLOXACIN 500 MG/100 ML BAG IV SCH (09:13)
[2017-12-02] MEDS: MAGNESIUM SULFATE 32.48 MEQ in DEXTROSE 5% IN WATER 100 ML IV SCH ×2 (11:20→13:24)
[2017-12-02] MEDS: CALCIUM GLUCONATE 9.3 MEQ in DEXTROSE 5% IN WATER 100 ML IV SCH ×2 (11:20→17:51)
--- NOTE | 2017-12-02 14:35 | General Surgery Progress Note ---
Subjective Patient reports: feels better, still having pain, pain is less, no flatus, no bowel movement (She), afebrile Narrative: Note initiated : 12/02/17 at 2:33 pm Service Date, if different from initiated Date: [] Patient: Dayanna Stephens 56 y/o F admitted on 11/28/17 for Constipation/ Hypocalcemia. Chief Complaint: [Patient is doing well. She states that her pain is controlled. She denies chest pain or shortness of breath. She does not have abdominal distention. She has not had any flatus or bowel movement yet. She denies nausea. She is in much better spirits.] Objective Temp Pulse Resp BP Pulse Ox 98.6 F 80 18 144/78 96 12/02/17 11:50 12/02/17 07:00 12/02/17 11:50 12/02/17 11:50 12/02/17 11:50 - Additional Data Intake & Output - Last 24 hours: Intake & Output 11/30/17 12/01/17 12/02/17 12/03/17 05:59 05:59 05:59 05:59 Intake Total 3028 / 3028 3496 / 3496 6195 / 6195 1628 / 1628 Output Total 3100 / 3100 4600 / 4600 1700 / 1700 Balance -72 / -72 -1104 / -1104 4495 / 4495 1628 / 1628 Weight 222 lb 222 lb 224 lb 8 oz 224 lb 8 oz - General physical appearance well developed, well nourished, no distress - Eyes PERRL, normal ocular movement - ENT normal pinna, normal nares, normal mucosa, no hearing loss, no congestion - Neck no masses, no bruits, trachea midline, no lymphadectomy, no venous distension - Respiratory normal expansion, normal respiratory effort, clear to percussion, clear to auscultation - Cardiovascular Cardiovascular exam: Present: normal rate and rhythm, RRR, +S1, +S2. Absent: gallop, JVD, systolic murmur - Abdomen tender (Mild tenderness of her incision; good active bowel sounds), bowel sounds (present), surgical scars (none), masses (none) - Integumentary no rash, no growths, no abnormal pigmentation - Neurologic normal coordination, normal sensation - Musculoskeletal normal gait, normal posture - Psychiatric oriented to time, oriented to person, oriented to place, speech is normal, memory intact - Labs 12/02/17 04:20 12/02/17 04:20 Diabetes panel 12/02/17 Range/Units 04:20 Sodium 137 (133-145) mmol/L Potassium 4.2 (3.3-5.1) mmol/L Chloride 101 (96-108) mmol/L Carbon Dioxide 25 (22-30) mmol/L BUN 4 L (6-20) mg/dl Creatinine 0.5 L (0.6-1.1) mg/dl Glucose 179 H (70-105) mg/dL Calcium 6.7 L (8.6-10.4) mg/dl AST 14 (0-37) U/l ALT 38 (0-40) U/l Alkaline Phosphatase 62 (39-117) U/L Total Protein 4.7 L (5.9-8.4) gm/dL Albumin 2.5 L (3.2-5.2) gm/dL Triglycerides 82 (<150) mg/dl Calcium panel 12/02/17 Range/Units 04:20 Calcium 6.7 L (8.6-10.4) mg/dl Phosphorus 4.6 H (2.7-4.5) mg/dL Albumin 2.5 L (3.2-5.2) gm/dL Pituitary panel 12/02/17 Range/Units 04:20 Sodium 137 (133-145) mmol/L Potassium 4.2 (3.3-5.1) mmol/L Chloride 101 (96-108) mmol/L Carbon Dioxide 25 (22-30) mmol/L BUN 4 L (6-20) mg/dl Creatinine 0.5 L (0.6-1.1) mg/dl Glucose 179 H (70-105) mg/dL Calcium 6.7 L (8.6-10.4) mg/dl Adrenal panel 12/02/17 Range/Units 04:20 Sodium 137 (133-145) mmol/L Potassium 4.2 (3.3-5.1) mmol/L Chloride 101 (96-108) mmol/L Carbon Dioxide 25 (22-30) mmol/L BUN 4 L (6-20) mg/dl Creatinine 0.5 L (0.6-1.1) mg/dl Glucose 179 H (70-105) mg/dL Calcium 6.7 L (8.6-10.4) mg/dl Total Bilirubin 0.2 (0.0-1.0) mg/dL AST 14 (0-37) U/l ALT 38 (0-40) U/l Alkaline Phosphatase 62 (39-117) U/L Total Protein 4.7 L (5.9-8.4) gm/dL Albumin 2.5 L (3.2-5.2) gm/dL Assessment and Plan (1) Obstruction of descending colon Status: Acute Assessment and plan: Continue present therapy Current Visit: Yes (2) Hypocalcemia Status: Acute Assessment and plan: Continue IV calcium infusions until patient can take p.o. Current Visit: Yes (3) Polyglandular autoimmune syndrome Status: Chronic Current Visit: No (4) Myasthenia gravis Status: Acute Current Visit: No (5) Supraventricular tachycardia Status: Acute Current Visit: No (6) Chronic intestinal pseudo-obstruction Status: Acute Current Visit: Yes (7) Hypertension Status: Chronic Current Visit: No - Time Spent With Patient Total time spent is greater than 50% in coordination of care (as documented) at patient's floor/unit and/or counseling patient:
[2017-12-02] MEDS: LORazepam 2 MG/ML VIAL IV PRN (22:40)
[2017-12-03] MEDS: HYDROmorphone 2 MG/ML VIAL IV PRN ×9 (01:04→21:31)
[2017-12-03] MEDS: 0.9 % SODIUM CHLORIDE 1,000 ML IV SCH ×5 (01:14→23:17)
[2017-12-03] MEDS: CALCIUM GLUCONATE 9.3 MEQ in DEXTROSE 5% IN WATER 100 ML IV SCH ×2 (01:14→10:15)
[2017-12-03] MEDS: LORazepam 2 MG/ML VIAL IV PRN ×2 (04:55→22:54)
[2017-12-03] MEDS: metroNIDAZOLE 500 MG/100 ML BAG IV SCH ×3 (05:02→21:21)
[2017-12-03] MEDS: methylPREDNISolone SOD SUCC 125 MG/2 ML VIAL IV SCH ×3 (05:02→21:21)
[2017-12-03 05:49] LABS: Basophils # (Auto) 0 K/mcL (0.0-0.3); Basophils % (Auto) 0 % (0.0-2.0); Eosinophils # (Auto) 0.1 K/mcL (0.0-0.7); Eosinophils % (Auto) 1.6 % (0.0-7.0); Granulocytes % (Auto) 87.3 % (38.0-78.0); Lymphocytes # (Auto) 0.6 K/mcL (1.5-4.8); Lymphocytes % (Auto) 7.5 % (15.5-49.0); Mean Cell Volume 87.3 fL (80.0-100.0); Mean Corpuscular HGB Conc 33.4 g/dL (31.0-36.0); Mean Corpuscular Hemoglobin 29.1 pg (26.0-34.0); Monocytes # (Auto) 0.3 K/mcL (0.1-0.9); Monocytes % (Auto) 3.6 % (1.0-12.0); Platelet Count 274 K/mcL (140-440); RBC 3.57 M/mcL (4.00-5.20); Red Cell Distribution Width 14.1 % (11.5-14.5)
[2017-12-03 05:56] LABS: ALT/SGPT 33 U/l (0-40); Albumin/Globulin Ratio 1.4 (1.0-2.3); Alkaline Phosphatase 61 U/L (39-117); Bilirubin,Direct < 0.2 mg/dL (0.0-0.3); Blood Urea Nitrogen 4 mg/dl (6-20); Gamma Glutamyl Transpeptidase 12 U/L (5-36); Uric Acid 4.8 mg/dL (2.5-8.0)
[2017-12-03] MEDS: LEVOTHYROXINE 100 MCG VIAL IV SCH (07:06)
[2017-12-03] MEDS: PANTOPRAZOLE 40 MG VIAL IV SCH ×2 (07:07→16:23)
[2017-12-03] MEDS: ACETAMINOPHEN 1,000 MG/100 ML BOTTLE IV PRN ×2 (09:01→19:02)
[2017-12-03] MEDS: LEVOFLOXACIN 500 MG/100 ML BAG IV SCH (09:45)
[2017-12-03] MEDS: 0.9 % SODIUM CHLORIDE 10 ML SYRINGE IV SCH ×2 (09:45→21:32)
--- NOTE | 2017-12-03 12:20 | General Surgery Progress Note ---
Subjective Patient reports: feels better, pain is less, flatus, no bowel movement, afebrile Narrative: Note initiated : 12/03/17 at 12:18 pm Service Date, if different from initiated Date: [] Patient: Dayanna Stephens 56 y/o F admitted on 11/28/17 for Constipation/ Hypocalcemia. Chief Complaint: [Patient continues to improve. She is in good spirits. Her nasogastric output has been 230 cc over the past 8 hours. She has had output of flatus and her stoma appliance. She has not had bowel movements so for. She does not have abdominal distention and her pain is well controlled.] Objective Temp Pulse Resp BP Pulse Ox 97.7 F 64 12 163/93 97 12/03/17 07:09 12/03/17 07:09 12/03/17 08:17 12/03/17 07:09 12/03/17 07:09 - Additional Data Intake & Output - Last 24 hours: Intake & Output 12/01/17 12/02/17 12/03/17 12/04/17 05:59 05:59 05:59 05:59 Intake Total 3496 / 3496 6195 / 6195 3598 / 3598 390 / 390 Output Total 4600 / 4600 1700 / 1700 3580 / 3580 1050 / 1050 Balance -1104 / -1104 4495 / 4495 -660 / -660 Weight 222 lb 224 lb 8 oz 227 lb - General physical appearance well developed, well nourished, no distress - Eyes PERRL, normal ocular movement - ENT normal pinna, normal nares, normal mucosa, no hearing loss, no congestion - Neck no masses, no bruits, trachea midline, no lymphadectomy, no venous distension, other (Central venous catheter right neck is unremarkable) - Respiratory normal expansion, normal respiratory effort, clear to percussion, clear to auscultation - Cardiovascular Cardiovascular exam: Present: normal rate and rhythm, RRR, +S1, +S2 (She). Absent: JVD - Abdomen tender (Mild incisional tenderness; good active bowel sounds; stoma is healthy) , bowel sounds (present), surgical scars (none), masses (none) - Integumentary no rash, no growths, no abnormal pigmentation - Neurologic normal coordination, normal sensation - Musculoskeletal normal gait, normal posture - Psychiatric oriented to time, oriented to person, oriented to place, speech is normal, memory intact - Labs 12/03/17 04:00 12/03/17 04:00 Diabetes panel 12/03/17 Range/Units 04:00 Sodium 141 (133-145) mmol/L Potassium 3.9 (3.3-5.1) mmol/L Chloride 102 (96-108) mmol/L Carbon Dioxide 28 (22-30) mmol/L BUN 4 L (6-20) mg/dl Creatinine 0.5 L (0.6-1.1) mg/dl Glucose 189 H (70-105) mg/dL Calcium 7.3 L (8.6-10.4) mg/dl AST 12 (0-37) U/l ALT 33 (0-40) U/l Alkaline Phosphatase 61 (39-117) U/L Total Protein 5.1 L (5.9-8.4) gm/dL Albumin 3.0 L (3.2-5.2) gm/dL Triglycerides 117 (<150) mg/dl Calcium panel 12/03/17 Range/Units 04:00 Calcium 7.3 L (8.6-10.4) mg/dl Phosphorus 4.2 (2.7-4.5) mg/dL Albumin 3.0 L (3.2-5.2) gm/dL Pituitary panel 12/03/17 Range/Units 04:00 Sodium 141 (133-145) mmol/L Potassium 3.9 (3.3-5.1) mmol/L Chloride 102 (96-108) mmol/L Carbon Dioxide 28 (22-30) mmol/L BUN 4 L (6-20) mg/dl Creatinine 0.5 L (0.6-1.1) mg/dl Glucose 189 H (70-105) mg/dL Calcium 7.3 L (8.6-10.4) mg/dl Adrenal panel 12/03/17 Range/Units 04:00 Sodium 141 (133-145) mmol/L Potassium 3.9 (3.3-5.1) mmol/L Chloride 102 (96-108) mmol/L Carbon Dioxide 28 (22-30) mmol/L BUN 4 L (6-20) mg/dl Creatinine 0.5 L (0.6-1.1) mg/dl Glucose 189 H (70-105) mg/dL Calcium 7.3 L (8.6-10.4) mg/dl Total Bilirubin 0.2 (0.0-1.0) mg/dL AST 12 (0-37) U/l ALT 33 (0-40) U/l Alkaline Phosphatase 61 (39-117) U/L Total Protein 5.1 L (5.9-8.4) gm/dL Albumin 3.0 L (3.2-5.2) gm/dL Assessment and Plan (1) Obstruction of descending colon Status: Acute Assessment and plan: Continue present therapy Discontinue nasogastric suction and tube Start clear liquid diet Current Visit: Yes (2) Hypocalcemia Status: Acute Assessment and plan: Continue IV calcium infusions until patient can take p.o. Current Visit: Yes (3) Polyglandular autoimmune syndrome Status: Chronic Current Visit: No (4) Myasthenia gravis Status: Acute Current Visit: No (5) Supraventricular tachycardia Status: Acute Current Visit: No (6) Chronic intestinal pseudo-obstruction Status: Acute Current Visit: Yes (7) Hypertension Status: Chronic Current Visit: No - Time Spent With Patient Total time spent is greater than 50% in coordination of care (as documented) at patient's floor/unit and/or counseling patient:
[2017-12-03] MEDS: MAGNESIUM HYDROXIDE 30 ML ORAL.SUSP PO SCH (21:20)
[2017-12-04] MEDS: MAGNESIUM HYDROXIDE 30 ML ORAL.SUSP PO SCH ×2 (00:36→05:04)
[2017-12-04] MEDS: HYDROmorphone 2 MG/ML VIAL IV PRN ×7 (00:37→23:21)
[2017-12-04] MEDS: ACETAMINOPHEN 1,000 MG/100 ML BOTTLE IV PRN (04:36)
[2017-12-04] MEDS: metroNIDAZOLE 500 MG/100 ML BAG IV SCH ×2 (05:09→13:27)
[2017-12-04] MEDS: methylPREDNISolone SOD SUCC 125 MG/2 ML VIAL IV SCH ×3 (05:11→22:05)
[2017-12-04 05:43] LABS: Basophils # (Auto) 0 K/mcL (0.0-0.3); Basophils % (Auto) 0 % (0.0-2.0); Eosinophils # (Auto) 0.1 K/mcL (0.0-0.7); Eosinophils % (Auto) 1.4 % (0.0-7.0); Granulocytes % (Auto) 82.4 % (38.0-78.0); Lymphocytes # (Auto) 0.7 K/mcL (1.5-4.8); Lymphocytes % (Auto) 11.1 % (15.5-49.0); Mean Cell Volume 87.7 fL (80.0-100.0); Mean Corpuscular HGB Conc 32.8 g/dL (31.0-36.0); Mean Corpuscular Hemoglobin 28.8 pg (26.0-34.0); Monocytes # (Auto) 0.3 K/mcL (0.1-0.9); Monocytes % (Auto) 5.1 % (1.0-12.0); Platelet Count 257 K/mcL (140-440); RBC 3.62 M/mcL (4.00-5.20); Red Cell Distribution Width 14.5 % (11.5-14.5)
[2017-12-04 06:01] LABS: ALT/SGPT 33 U/l (0-40); Albumin 3.1 gm/dL (3.2-5.2); Albumin/Globulin Ratio 1.6 (1.0-2.3); Alkaline Phosphatase 61 U/L (39-117); Bilirubin,Direct < 0.2 mg/dL (0.0-0.3); Blood Urea Nitrogen 6 mg/dl (6-20); Gamma Glutamyl Transpeptidase 16 U/L (5-36); Uric Acid 4.5 mg/dL (2.5-8.0)
[2017-12-04] MEDS: 0.9 % SODIUM CHLORIDE 1,000 ML IV SCH ×3 (06:35→16:17)
[2017-12-04] MEDS: PANTOPRAZOLE 40 MG VIAL IV SCH ×2 (07:15→16:33)
[2017-12-04] MEDS: LEVOTHYROXINE 100 MCG VIAL IV SCH (07:16)
[2017-12-04] MEDS: oxyCODONE/APAP 5/325MG TABLET PO PRN ×4 (07:29→20:20)
[2017-12-04] MEDS: 0.9 % SODIUM CHLORIDE 10 ML SYRINGE IV SCH ×2 (09:01→20:22)
[2017-12-04] MEDS: LEVOFLOXACIN 500 MG/100 ML BAG IV SCH (09:17)
[2017-12-04] MEDS: CALCIUM CHLORIDE 1,000 MG/10 ML SYRINGE IV SCH (09:17)
--- NOTE | 2017-12-04 14:51 | General Surgery Progress Note ---
Subjective Patient reports: feels better, pain is less, flatus, bowel movement, afebrile Narrative: Note initiated : 12/04/17 at 2:48 pm Service Date, if different from initiated Date: [] Patient: Dayanna Stephens 56 y/o F admitted on 11/28/17 for Constipation/ Hypocalcemia. Chief Complaint: [Patient is doing better. She finally had bowel movements today. She is tolerated clear liquids without difficulty. She does not have any discomfort. She denies abdominal distention or gas pain.] Objective Temp Pulse Resp BP Pulse Ox 96.4 F L 55 L 18 168/108 96 12/04/17 12:00 12/04/17 07:54 12/04/17 12:00 12/04/17 12:00 12/04/17 12:00 - Additional Data Intake & Output - Last 24 hours: Intake & Output 12/02/17 12/03/17 12/04/17 12/05/17 05:59 05:59 05:59 05:59 Intake Total 6195 / 6195 3598 / 3598 3990 / 3990 1450 / 1450 Output Total 1700 / 1700 3580 / 3580 5225 / 5225 1175 / 1175 Balance 4495 / 4495 -1235 / -1235 275 / 275 Weight 224 lb 8 oz 227 lb 229 lb 8 oz 229 lb 8 oz - General physical appearance well developed, well nourished, no distress - Eyes PERRL, normal ocular movement - ENT no congestion - Neck no venous distension - Respiratory normal expansion, normal respiratory effort, clear to percussion, clear to auscultation - Cardiovascular Cardiovascular exam: Present: normal rate and rhythm, RRR, +S1, +S2. Absent: JVD - Abdomen tender (Mild incisional tenderness otherwise unremarkable), bowel sounds ( present), surgical scars (none), masses (none) - Integumentary no rash, no growths, no abnormal pigmentation - Neurologic normal coordination, normal sensation - Musculoskeletal normal gait, normal posture - Psychiatric oriented to time, oriented to person, oriented to place, speech is normal, memory intact - Labs 12/04/17 04:00 12/04/17 04:00 Diabetes panel 12/04/17 Range/Units 04:00 Sodium 144 (133-145) mmol/L Potassium 3.8 (3.3-5.1) mmol/L Chloride 104 (96-108) mmol/L Carbon Dioxide 29 (22-30) mmol/L BUN 6 (6-20) mg/dl Creatinine 0.5 L (0.6-1.1) mg/dl Glucose 198 H (70-105) mg/dL Calcium 6.7 L (8.6-10.4) mg/dl AST 20 (0-37) U/l ALT 33 (0-40) U/l Alkaline Phosphatase 61 (39-117) U/L Total Protein 5.0 L (5.9-8.4) gm/dL Albumin 3.1 L (3.2-5.2) gm/dL Triglycerides 155 H (<150) mg/dl Calcium panel 12/04/17 Range/Units 04:00 Calcium 6.7 L (8.6-10.4) mg/dl Phosphorus 4.0 (2.7-4.5) mg/dL Albumin 3.1 L (3.2-5.2) gm/dL Pituitary panel 12/04/17 Range/Units 04:00 Sodium 144 (133-145) mmol/L Potassium 3.8 (3.3-5.1) mmol/L Chloride 104 (96-108) mmol/L Carbon Dioxide 29 (22-30) mmol/L BUN 6 (6-20) mg/dl Creatinine 0.5 L (0.6-1.1) mg/dl Glucose 198 H (70-105) mg/dL Calcium 6.7 L (8.6-10.4) mg/dl Adrenal panel 12/04/17 Range/Units 04:00 Sodium 144 (133-145) mmol/L Potassium 3.8 (3.3-5.1) mmol/L Chloride 104 (96-108) mmol/L Carbon Dioxide 29 (22-30) mmol/L BUN 6 (6-20) mg/dl Creatinine 0.5 L (0.6-1.1) mg/dl Glucose 198 H (70-105) mg/dL Calcium 6.7 L (8.6-10.4) mg/dl Total Bilirubin 0.2 (0.0-1.0) mg/dL AST 20 (0-37) U/l ALT 33 (0-40) U/l Alkaline Phosphatase 61 (39-117) U/L Total Protein 5.0 L (5.9-8.4) gm/dL Albumin 3.1 L (3.2-5.2) gm/dL Assessment and Plan (1) Obstruction of descending colon Status: Acute Assessment and plan: Continue present therapy Full liquid diet Decrease IV to 50 cc/h Current Visit: Yes (2) Hypocalcemia Status: Acute Assessment and plan: Continue IV calcium infusions until patient can take p.o. Current Visit: Yes (3) Polyglandular autoimmune syndrome Status: Chronic Current Visit: No (4) Myasthenia gravis Status: Acute Current Visit: No (5) Supraventricular tachycardia Status: Acute Current Visit: No (6) Chronic intestinal pseudo-obstruction Status: Acute Assessment and plan: Erythromycin base 250 mg 3 times daily for pro-motility effect Current Visit: Yes (7) Hypertension Status: Chronic Current Visit: No - Time Spent With Patient Total time spent is greater than 50% in coordination of care (as documented) at patient's floor/unit and/or counseling patient:
[2017-12-04] MEDS: CALCITRIOL 0.25 MCG CAPSULE PO SCH ×2 (16:33→20:20)
[2017-12-04] MEDS: DULoxetine 30 MG CAPSULE PO SCH (20:19)
[2017-12-04] MEDS: CALCIUM CARBONATE 1,250 MG/5 ML ORAL.SUSP PO SCH (20:21)
[2017-12-04] MEDS: ERYTHROMYCIN BASE 250 MG CAPSULE PO SCH (22:06)
[2017-12-04] MEDS: LORazepam 2 MG/ML VIAL IV PRN (23:21)
[2017-12-05] MEDS: 0.9 % SODIUM CHLORIDE 1,000 ML IV SCH ×2 (01:33→12:30)
[2017-12-05] MEDS: oxyCODONE/APAP 5/325MG TABLET PO PRN ×6 (02:03→22:18)
[2017-12-05] MEDS: HYDROmorphone 2 MG/ML VIAL IV PRN ×6 (04:16→19:13)
[2017-12-05] MEDS: methylPREDNISolone SOD SUCC 125 MG/2 ML VIAL IV SCH ×3 (06:05→22:15)
[2017-12-05] MEDS: ERYTHROMYCIN BASE 250 MG CAPSULE PO SCH ×3 (06:05→22:16)
[2017-12-05] MEDS: PANTOPRAZOLE 40 MG VIAL IV SCH ×2 (07:15→16:16)
[2017-12-05] MEDS: LEVOTHYROXINE 125 MCG TABLET PO SCH (08:04)
[2017-12-05] MEDS: predniSONE 20 MG TABLET PO SCH (08:29)
[2017-12-05] MEDS: CALCIUM CARBONATE 1,250 MG/5 ML ORAL.SUSP PO SCH ×2 (09:32→20:26)
[2017-12-05] MEDS: DULoxetine 30 MG CAPSULE PO SCH ×2 (09:33→20:26)
[2017-12-05] MEDS: CALCITRIOL 0.25 MCG CAPSULE PO SCH ×3 (09:33→20:26)
[2017-12-05] MEDS: CALCIUM CHLORIDE 1,000 MG/10 ML SYRINGE IV SCH (09:48)
[2017-12-05] MEDS: 0.9 % SODIUM CHLORIDE 10 ML SYRINGE IV SCH ×2 (09:49→22:16)
--- NOTE | 2017-12-05 17:40 | General Surgery Progress Note ---
Subjective Patient reports: feels better, pain is less, tolerating liquids well, flatus, bowel movement, afebrile Narrative: Note initiated : 12/05/17 at 5:38 pm Service Date, if different from initiated Date: [] Patient: Dayanna Stephens 56 y/o F admitted on 11/28/17 for Constipation/ Hypocalcemia. Chief Complaint: [Patient is tolerating diet without difficulty. Her stoma is functioning and she has emptied it multiple times. She has no other complaints.] Objective Temp Pulse Resp BP Pulse Ox 97.1 F 83 18 155/95 95 12/05/17 15:33 12/05/17 11:09 12/05/17 15:33 12/05/17 15:33 12/05/17 15:33 - Additional Data Intake & Output - Last 24 hours: Intake & Output 12/03/17 12/04/17 12/05/17 12/06/17 05:59 05:59 05:59 05:59 Intake Total 3598 / 3598 3990 / 3990 3693 / 3693 3240 / 3240 Output Total 3580 / 3580 5225 / 5225 5725 / 5725 3575 / 3575 Balance -1235 / -1235 -2032 / -2032 -335 / -335 Weight 227 lb 229 lb 8 oz 229 lb - General physical appearance well developed, well nourished, no distress - Eyes PERRL, normal ocular movement - ENT normal pinna, normal nares, normal mucosa, no hearing loss, no congestion - Neck no masses, no bruits, trachea midline, no lymphadectomy, no venous distension - Respiratory normal expansion, normal respiratory effort, clear to percussion, clear to auscultation - Cardiovascular Cardiovascular exam: Present: normal rate and rhythm, JVD, RRR, +S1, +S2. Absent: tachycardia - Abdomen tender (Minimal tenderness of the incision; stoma looks good), bowel sounds ( present), surgical scars (none), masses (none) - Integumentary no rash, no growths, no abnormal pigmentation - Neurologic normal coordination, normal sensation - Musculoskeletal normal gait, normal posture - Psychiatric oriented to time, oriented to person, oriented to place, speech is normal, memory intact - Labs 12/04/17 04:00 12/04/17 04:00 Assessment and Plan (1) Obstruction of descending colon Status: Acute Assessment and plan: Continue present therapy soft diet D/C IV FLUIDS Current Visit: Yes (2) Hypocalcemia Status: Acute Assessment and plan: Continue IV calcium infusions until patient can take p.o. Current Visit: Yes (3) Polyglandular autoimmune syndrome Status: Chronic Current Visit: No (4) Myasthenia gravis Status: Acute Current Visit: No (5) Supraventricular tachycardia Status: Acute Current Visit: No (6) Chronic intestinal pseudo-obstruction Status: Acute Assessment and plan: Erythromycin base 250 mg 3 times daily for pro-motility effect Current Visit: Yes (7) Hypertension Status: Chronic Current Visit: No - Time Spent With Patient Total time spent is greater than 50% in coordination of care (as documented) at patient's floor/unit and/or counseling patient:
[2017-12-05] MEDS: LORazepam 2 MG/ML VIAL IV PRN (22:15)
[2017-12-06] MEDS: ACETAMINOPHEN 1,000 MG/100 ML BOTTLE IV PRN ×2 (00:01→14:36)
[2017-12-06] MEDS: oxyCODONE/APAP 5/325MG TABLET PO PRN ×3 (02:14→10:51)
[2017-12-06] MEDS: HYDROmorphone 2 MG/ML VIAL IV PRN ×4 (03:10→13:52)
[2017-12-06] MEDS: ERYTHROMYCIN BASE 250 MG CAPSULE PO SCH ×2 (05:50→14:01)
[2017-12-06] MEDS: methylPREDNISolone SOD SUCC 125 MG/2 ML VIAL IV SCH (05:50)
[2017-12-06] MEDS: PANTOPRAZOLE 40 MG VIAL IV SCH (06:56)
[2017-12-06] MEDS: LEVOTHYROXINE 125 MCG TABLET PO SCH (07:28)
[2017-12-06] MEDS: CALCIUM CARBONATE 1,250 MG/5 ML ORAL.SUSP PO SCH (08:50)
[2017-12-06] MEDS: CALCITRIOL 0.25 MCG CAPSULE PO SCH ×2 (08:50→14:02)
[2017-12-06] MEDS: predniSONE 20 MG TABLET PO SCH (08:51)
[2017-12-06] MEDS: DULoxetine 30 MG CAPSULE PO SCH (08:51)
[2017-12-06] MEDS ORDERED: LISINOPRIL 20 MG TABLET PO SCH (09:00)
[2017-12-06] MEDS: CALCIUM CHLORIDE 1,000 MG/10 ML SYRINGE IV SCH (09:20)
[2017-12-06] MEDS: 0.9 % SODIUM CHLORIDE 10 ML SYRINGE IV SCH (09:21)
[2017-12-06] MEDS: LORazepam 2 MG/ML VIAL IV PRN (12:23)
--- NOTE | 2017-12-06 14:04 | Discharge Summary ---
Providers - Providers Patient information: Note initiated : 12/06/17 at 2:01 pm Service Date, if different from initiated Date: [] Patient: Dayanna Stephens 56 y/o F admitted on 11/28/17 for Constipation/ Hypocalcemia. Chief Complaint: [] Date of admission: 11/29/17 Discharge date: 12/06/17 Attending physician: Bertha Currie Hospitalization Hospital course: 56-year-old female with history of chronic intestinal pseudoobstruction and prior intestinal mechanical obstruction due to adhesions. She was treated with adhesio lysis in September 2017. Patient gives a history of having increasing watery diarrhea over the last few weeks. 3 hours before coming to the emergency room she had emesis multiple times. She also noted upper abdominal bloating. Plain films of the abdomen suggested colonic obstruction. She had no output through her stoma. CT of the abdomen and pelvis showed high-grade obstruction of the splenic flexure of the colon and the terminal ileum. She underwent exploratory laparotomy with adhesiolysis on and was found to have extensive adhesions in these areas. Thorough adhesio lysis was done uneventfully. She started having increased output through her stoma on the morning of 04 December and this has continued. Her diet has been slowly advanced and she is now tolerating a soft diet and is having multiple bowel movements. She is stable and ready for discharge. Discharge diagnosis: Colonic and small bowel obstruction Secondary discharge diagnosis: Extensive intraperitoneal adhesions Chronic intestinal pseudoobstruction Hypertension Hypocalcemia Reason for admission: recurrent nausea and vomiting Procedures: Exploratory laparotomy with adhesiolysis 01 December 2017 Pertinent studies/significant findings: CT of abdomen and pelvis with IV contrast Complications: None Exam Temp Pulse Resp BP Pulse Ox 97 F 72 16 172/95 95 12/06/17 11:42 12/06/17 12:10 12/06/17 11:42 12/06/17 12:57 12/06/17 11:42 - General physical appearance well developed, well nourished, no distress, chronically ill, obese - Eyes PERRL, normal ocular movement - ENT normal pinna, normal nares, normal mucosa, no hearing loss, no congestion - Head Head exam IM: Present: atraumatic, normocephalic - Neck no masses, no bruits, trachea midline, no lymphadectomy, no venous distension - Cardiovascular Cardiovascular exam IM: Present: normal rate and rhythm - Respiratory normal expansion, normal respiratory effort, clear to percussion, clear to auscultation - Abdomen Abdomen: Present: soft, non tender, bowel sounds, surgical scars (Incision healing uneventfully; stoma is functioning normal; good active bowel sounds) Hernia: Present: none - Genitourinary Present: normal external genitalia - Integumentary Present: no rash, no growths, no abnormal pigmentation - Neurologic Present: normal coordination, normal sensation - Musculoskeletal Present: normal gait, normal posture - Psychiatric Present: oriented to time, oriented to person, oriented to place, speech is normal, memory intact Discharge Plan - Patient/Caregiver Discharge Instructions Activity: increase activity as tolerated Diet: Regular Diet Additional Instructions: Make an appointment for 2 weeks after 2017 Keep incision dry resume all home medications as before admission - Follow up Plan Follow up with: Douglas Haque MD [Primary Care Provider] - Disposition: Home, Self-Care Prognosis: Good Rehab Potential: Good I certify that the patient requires SNF services.: No Overall status at discharge: patient is progressing back to baseline Pending Studies Resuscitation Status Full Code Diet GI Soft/Transitional Start Unique Dec 05 1739 Calcitriol (Rocaltrol) 0.5 mcg PO TID [facility] Last Admin: 12/06/17 08:50 Dose: 0.5 mcg Admin: 12/05/17 20:26 Dose: 0.5 mcg Admin: 12/05/17 13:36 Dose: 0.5 mcg Admin: 12/05/17 09:33 Dose: 0.5 mcg Admin: 12/04/17 20:20 Dose: 0.5 mcg Admin: 12/04/17 16:33 Dose: 0.5 mcg Calcium Carbonate/Glycine (Calcium Carbonate) 1,200 mg PO BID [facility] Last Admin: 12/06/17 08:50 Dose: 1,200 mg Admin: 12/05/17 20:26 Dose: 1,200 mg Admin: 12/05/17 09:32 Dose: 1,200 mg Admin: 12/04/17 20:21 Dose: 1,200 mg Calcium Chloride (Calcium Chloride) 1,000 mg IV DAILY [facility] Last Admin: 12/06/17 09:20 Dose: 1,000 mg Admin: 12/05/17 09:48 Dose: 1,000 mg Admin: 12/04/17 09:17 Dose: 1,000 mg Duloxetine HCl (Cymbalta) 30 mg PO BID [facility] Last Admin: 12/06/17 08:51 Dose: 30 mg Admin: 12/05/17 20:26 Dose: 30 mg Admin: 12/05/17 09:33 Dose: 30 mg Admin: 12/04/17 20:19 Dose: 30 mg Erythromycin (Erythromycin) 250 mg PO Q8 [facility] Last Admin: 12/06/17 05:50 Dose: 250 mg Admin: 12/05/17 22:16 Dose: Not Given Admin: 12/05/17 13:32 Dose: 250 mg Admin: 12/05/17 06:05 Dose: 250 mg Admin: 12/04/17 22:06 Dose: 250 mg Hydromorphone HCl (Dilaudid) 1 mg IV Q2HP PRN PRN Reason: PAIN LEVEL > 6 Last Admin: 12/06/17 13:52 Dose: 1 mg Admin: 12/06/17 08:32 Dose: 1 mg Admin: 12/06/17 05:49 Dose: 1 mg Admin: 12/06/17 03:10 Dose: 1 mg Admin: 12/05/17 19:13 Dose: 1 mg Admin: 12/05/17 16:16 Dose: 1 mg Admin: 12/05/17 13:33 Dose: 1 mg Admin: 12/05/17 11:15 Dose: 1 mg Admin: 12/05/17 07:09 Dose: 1 mg Admin: 12/05/17 04:16 Dose: 1 mg Admin: 12/04/17 23:21 Dose: 1 mg Admin: 12/04/17 18:18 Dose: 1 mg Admin: 12/04/17 13:41 Dose: 1 mg Admin: 12/04/17 11:03 Dose: 1 mg Admin: 12/04/17 05:10 Dose: 1 mg Admin: 12/04/17 02:36 Dose: 1 mg Admin: 12/04/17 00:37 Dose: 1 mg Admin: 12/03/17 21:31 Dose: 1 mg Admin: 12/03/17 19:35 Dose: 1 mg Admin: 12/03/17 16:24 Dose: 1 mg Admin: 12/03/17 14:06 Dose: 1 mg Admin: 12/03/17 11:50 Dose: 1 mg Admin: 12/03/17 09:45 Dose: 1 mg Admin: 12/03/17 07:32 Dose: 1 mg Admin: 12/03/17 03:19 Dose: 1 mg Admin: 12/03/17 01:04 Dose: 1 mg Admin: 12/02/17 21:20 Dose: 1 mg Admin: 12/02/17 18:00 Dose: 1 mg Admin: 12/02/17 16:01 Dose: 1 mg Admin: 12/02/17 13:24 Dose: 1 mg Admin: 12/02/17 11:20 Dose: 1 mg Admin: 12/02/17 09:12 Dose: 1 mg Admin: 12/02/17 07:07 Dose: 1 mg Admin: 12/02/17 04:27 Dose: 1 mg Admin: 12/02/17 01:06 Dose: 1 mg Admin: 12/01/17 22:41 Dose: 1 mg Admin: 12/01/17 20:49 Dose: 1 mg Admin: 12/01/17 18:13 Dose: 1 mg Admin: 12/01/17 15:55 Dose: 1 mg Admin: 12/01/17 13:38 Dose: 1 mg Admin: 12/01/17 11:04 Dose: 1 mg Acetaminophen (Ofirmev) 1,000 mg in 100 mls @ 200 mls/hr IV Q6HP PRN PRN Reason: Pain Last Infusion: 12/06/17 00:31 Dose: 0 mls/hr Admin: 12/06/17 00:01 Dose: 200 mls/hr Infusion: 12/04/17 05:06 Dose: 0 mls/hr Admin: 12/04/17 04:36 Dose: 200 mls/hr Infusion: 12/03/17 19:32 Dose: 200 mls/hr Admin: 12/03/17 19:02 Dose: 200 mls/hr Infusion: 12/03/17 09:35 Dose: 0 mls/hr Admin: 12/03/17 09:01 Dose: 200 mls/hr Infusion: 12/02/17 21:22 Dose: 0 mls/hr Admin: 12/02/17 19:33 Dose: 200 mls/hr Infusion: 12/02/17 13:28 Dose: 0 mls/hr Admin: 12/02/17 12:53 Dose: 200 mls/hr Infusion: 12/02/17 06:02 Dose: 0 mls/hr Admin: 12/02/17 04:27 Dose: 200 mls/hr Infusion: 12/01/17 22:14 Dose: 0 mls/hr Admin: 12/01/17 19:05 Dose: 200 mls/hr Infusion: 12/01/17 12:50 Dose: 0 mls/hr Admin: 12/01/17 12:19 Dose: 200 mls/hr Levothyroxine Sodium (Synthroid) 250 mcg PO QAMAC [facility] Last Admin: 12/06/17 07:28 Dose: 250 mcg Admin: 12/05/17 08:04 Dose: 250 mcg Lisinopril (Zestril) 20 mg PO BID [facility] Last Admin: 12/06/17 08:52 Dose: 20 mg Lorazepam (Ativan) 1 mg IV Q6HP PRN PRN Reason: ANXIETY/SEDATION Last Admin: 12/06/17 12:23 Dose: 1 mg Admin: 12/05/17 22:15 Dose: 1 mg Admin: 12/04/17 23:21 Dose: 1 mg Admin: 12/03/17 22:54 Dose: 1 mg Admin: 12/03/17 04:55 Dose: 1 mg Admin: 12/02/17 22:40 Dose: 1 mg Admin: 12/01/17 22:41 Dose: 1 mg Oxycodone/Acetaminophen (Percocet 5-325 Mg) 1 tab PO Q4HP PRN PRN Reason: PAIN LEVEL 3-6 Last Admin: 12/06/17 10:51 Dose: 1 tab Admin: 12/06/17 07:01 Dose: 1 tab Admin: 12/06/17 02:14 Dose: 1 tab Admin: 12/05/17 22:18 Dose: 1 tab Admin: 12/05/17 17:23 Dose: 1 tab Admin: 12/05/17 12:29 Dose: 1 tab Admin: 12/05/17 08:58 Dose: 1 tab Admin: 12/05/17 06:04 Dose: 1 tab Admin: 12/05/17 02:03 Dose: 1 tab Admin: 12/04/17 20:20 Dose: 1 tab Admin: 12/04/17 16:17 Dose: 1 tab Admin: 12/04/17 12:15 Dose: 1 tab Admin: 12/04/17 07:29 Dose: 1 tab Pantoprazole Sodium (Protonix) 40 mg IV BIDAC [facility] Last Admin: 12/06/17 06:56 Dose: 40 mg Admin: 12/05/17 16:16 Dose: 40 mg Admin: 12/05/17 07:15 Dose: 40 mg Admin: 12/04/17 16:33 Dose: 40 mg Admin: 12/04/17 07:15 Dose: 40 mg Admin: 12/03/17 16:23 Dose: 40 mg Admin: 12/03/17 07:07 Dose: 40 mg Admin: 12/02/17 17:51 Dose: 40 mg Admin: 12/02/17 07:05 Dose: 40 mg Admin: 12/01/17 16:27 Dose: 40 mg Prednisone (Prednisone) 20 mg PO [facility] Last Admin: 12/06/17 08:51 Dose: 20 mg Admin: 12/05/17 08:29 Dose: 20 mg Sodium Chloride (Saline Flush) 10 ml IV Q12 [facility] Last Admin: 12/06/17 09:21 Dose: 10 ml Admin: 12/05/17 22:16 Dose: 10 ml Admin: 12/05/17 09:49 Dose: Not Given Admin: 12/04/17 20:22 Dose: 10 ml Admin: 12/04/17 09:01 Dose: 10 ml Admin: 12/03/17 21:32 Dose: 10 ml Admin: 12/03/17 09:45 Dose: 10 ml Admin: 12/02/17 21:29 Dose: 10 ml Admin: 12/02/17 09:13 Dose: 10 ml Admin: 12/01/17 20:50 Dose: 10 ml Shift Summary 12/06/17 03:56 Shift Summary by Merry Stearns Pt A&O, Up ad rainer in room. Midline abd incision with kori and Tegaderm CDI. Percocet 5mg 1 tab given Q4H. Has had 1mg Dilaudid x2 for breakthrough pain and has had Ofirmev x1. Pt has been emptying colostomy by self, very loose BMs. Quad lumen central line to right neck. Updated to GI soft diet, tolerated well last night. BP has been high, 170/102 and most recent 185/89. Got an order for Lisinopril to be started this AM. Patient is really hoping to go home today. Initialized on 12/06/17 03:56 - END OF NOTE
== END 2017-12-06 15:55 | disposition home or self-care (01) | DRG 336 ==
LOC: ED 19:26 → MEDSUR 23:57
PROVIDERS: ADMIT Family Medicine Adult Medicine; ATTEND Family Medicine Adult Medicine

== ENCOUNTER 2017-12-21 04:55 | Inpatient (IN) ==
[2017-12-21] MEDS ORDERED: IOPAMIDOL 100 ML BOTTLE IV ONE (04:56)
[2017-12-21] MEDS ORDERED: ONDANSETRON 4 MG/2 ML VIAL IV ONE (05:47)
[2017-12-21] MEDS: HYDROmorphone 2 MG/ML VIAL IV PRN ×6 (06:15→20:17)
[2017-12-21] MEDS: 0.9 % SODIUM CHLORIDE 1,000 ML IV SCH ×5 (06:16→20:50)
[2017-12-21] MEDS ORDERED: PROMETHAZINE 25 MG/ML VIAL IV ONE (06:29)
--- NOTE | 2017-12-21 06:29 | Emergency Department Note ---
Abdominal Pain HPI - General Chief Complaint: Abdominal Pain Stated Complaint: abdominal pain Time Seen by Provider: 12/21/17 05:24 Source: patient Mode of arrival: wheelchair Limitations: no limitations - History of Present Illness HPI Narrative: 57-year-old female with a history of recurrent small bowel obstructions states up to 15 times so far. Versions are believed to be due to hypomotility of the bowel secondary to her diseases such as myasthenia gravis and sarcoid, due to the multiple adhesions and damage to the bowel. She will underwent a colostomy on September 20, she had recurrent structures on 10/17 and 12/01 during lysis surgically. Her surgeon is Dr. Parviz Currie. She had just recently 2 days ago had the kori removed from the most previous surgery. States last night she started developing some pain near the periumbilical region some decreased output in the colostomy bag. Is had no vomiting is complaining of some nausea with some abdominal pain requesting some nausea and pain medications at this time. Blood pressures are 126 systolically her pulse is 110. States she normally gets dehydrated we are giving her fluids at this time. - Related Data Home Medications Medication Instructions Recorded Confirmed DULoxetine [Cymbalta] 30 mg PO BID 11/30/16 12/18/17 Linaclotide [Linzess] 72 mcg PO DAILY 11/30/16 12/18/17 Levothyroxine [Synthroid] 250 mcg PO QAMAC 08/20/17 12/18/17 Acetaminophen W/Codeine #3 2 cap PO Q4-6HP PRN 09/18/17 12/18/17 [Tylenol #3] Calcium Carbonate 1,200 mg PO BID 09/18/17 12/18/17 Naproxen (Pp) [Aleve (Pp)] 2 tab PO BID 09/18/17 12/18/17 Polyethylene Glycol 3350 [Miralax] 17 gm PO BID 09/18/17 12/18/17 Acetaminophen [Tylenol Extra 2 tab PO BID 10/06/17 12/18/17 Strength] calcitriol 0.25 mcg capsule 0.5 mcg PO TID cap 11/05/17 12/18/17 nitroglycerin 0.4 mg sublingual 0.4 mg SUBLINGUAL Q5M PRN 11/05/17 12/18/17 tablet omeprazole 20 mg capsule,delayed 20 mg PO BID 11/05/17 12/18/17 release Previous Rx's Medication Instructions Recorded predniSONE [Prednisone] 20 mg PO [facility] #4 tab 05/18/16 Lisinopril [Zestril] 20 mg PO BID #60 tab 12/06/17 oxycodone-acetaminophen 10 mg-325 1 tab PO Q4HP PRN #60 tab 12/09/17 mg tablet colostomy bag, non-sterile 11 10/15" See Dose Instructions .ROUTE 12/10/17 655 mL .MEDSUPPLY #20 each Allergies Allergy/AdvReac Type Severity Reaction Status Date / Time Sulfa (Sulfonamide Allergy Severe Anaphylaxis Verified 12/21/17 05:00 Antibiotics) metoclopramide [From Reglan] AdvReac Intermediate Anxiety Verified 12/21/17 05: 00 steri strips Allergy Severe Blister Uncoded 12/18/17 13:20 Review of Systems All systems ED: reviewed and negative except as stated. Constitutional: Denies: fever, chills Eyes: Denies: eye pain ENT ED: Denies: ear pain Cardiovascular: Denies: chest pain Respiratory: Denies: shortness of breath Gastrointestinal: Reports: as per HPI, abdominal pain, nausea, other (Decreased output in the colostomy bag). Denies: vomiting, diarrhea, constipation, hematochezia, melena, hematemesis, acid reflux, heart burn Genitourinary: Denies: dysuria, urgency Musculoskeletal: Denies: back pain Integumentary: Denies: rash Neurological: Denies: headache Psychiatric: Denies: anxiety Endocrine: Denies: fatigue Hematological/Lymphatic: Denies: easy bleeding Allergic/Immunologic: Denies: facial swelling Abdominal Pain PMH - Past Medical History Medical history: Reports: COPD, hypertension, other (connective tissue diseases including Sjogren's, sarcoidosis, myasthenia gravis. achalasia, small bowel obstructions. 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 SVT) Surgical history ED: Reports: other (Colostomy, number multiple adhesion lysis to obstructions) Psychiatric history: Reports: anxiety, depression [employer] history: Reports: non-contributory Family history: Reports: non-contributory - Social History Smoking status: Never smoker Alcohol use: Reports: None Drug use: Reports: none Physical Exam Limitations: no limitations General appearance: alert Head: atraumatic, normocephalic Eye: Present: normal appearance, PERRL ENT: normal exam, normal oropharynx, mucous membranes dry Neck: Present: normal inspection, full ROM, trachea midline Chest: Present: normal inspection, symmetric chest wall rise. Absent: tenderness Respiratory: Present: normal lung sounds bilaterally. Absent: respiratory distress, wheezes Cardiovascular: Present: regular rate, normal rhythm, normal heart sounds. Absent: bradycardia, tachycardia, irregular rhythm Abdominal: Present: distention, tenderness, diminished bowel sounds. Absent: guarding, rebound, rigidity, heel tap sign, tenderness at McBurney's Point Abdominal tenderness: Present: diffuse Extremities: Present: normal inspection, full ROM. Absent: tenderness Back: Present: normal inspection, full ROM. Absent: tenderness Neurological: Present: alert, oriented X3, CN II-XII intact Psychiatric: Present: normal affect, normal mood Course Vital Signs Temperature 97.7 F 12/21/17 04:55 Pulse Rate 118 H 12/21/17 04:55 Respiratory Rate 20 12/21/17 04:55 Blood Pressure 149/121 12/21/17 04:55 Pulse Oximetry (%) 98 12/21/17 04:55 Temperature 97.7 F 12/21/17 04:55 Pulse Rate 126 H 12/21/17 06:14 Respiratory Rate 20 12/21/17 04:55 Blood Pressure 131/96 12/21/17 06:01 Pulse Oximetry (%) 92 12/21/17 06:14 Abdominal Pain - MDM Narrative Medical decision making narrative: CT confirms a small bowel obstruction at the terminal ileum. DR Currie will be contacted be admitted he wants a small bowel follow-through to be kept n.p.o. till then. - Lab Data Result diagrams: 12/21/17 05:55 Lab Results 12/21/17 12/21/17 Range/Units 05:55 05:55 WBC 9.5 (4.5-11.0) K/mcL RBC 4.62 (4.00-5.20) M/mcL Hgb 13.2 (12.0-15.0) g/dL Hct 39.7 (36.0-48.0) % POC Hct 41.0 (36.0-48.0) % MCV 85.9 (80.0-100.0) fL MCH 28.7 (26.0-34.0) pg MCHC 33.4 (31.0-36.0) g/dL RDW 15.3 H (11.5-14.5) % Plt Count 333 (140-440) K/mcL MPV 8.1 (7.4-10.4) fL Total Counted 100 Seg Neutrophils % 66 (38-78) % Band Neutrophils % 1 (0-10) % Lymphocytes % 24 (15-49) % Monocytes % (Manual) 7 (1-12) % Basophils % (Manual) 1 (0-2) % Reactive Lymphocytes 1 (0-2) % Platelet Estimate Normal (NORMAL) RBC Morphology Normal (NORMAL) POC Sodium 132 L (133-145) mmol/L POC Potassium 4.0 (3.3-5.1) mmol/L POC Chloride 95 L (96-108) mmol/L POC Total CO2 37 H (22-30) mmol/L POC BUN 23 H (6-20) mg/dl POC Creatinine 0.9 (0.6-1.1) mg/dl POC Glucose 200 H (70-105) mg/dL POC WB Ioniz Calcium 1.05 L (1.16-1.32) mmol/L Disposition Pt seen by [employer]/PA only: No Clinical Impression: Small bowel obstruction, Small bowel obstruction due to adhesions Disposition: Xfer As Inpt ([facility]) Condition: Fair Referrals: Douglas Haque MD [Primary Care Provider] - Time of Disposition: 09:01
[2017-12-21 06:33] LABS: Mean Cell Volume 85.9 fL (80.0-100.0); Mean Corpuscular HGB Conc 33.4 g/dL (31.0-36.0); Mean Corpuscular Hemoglobin 28.7 pg (26.0-34.0); Platelet Count 333 K/mcL (140-440); RBC 4.62 M/mcL (4.00-5.20); Red Cell Distribution Width 15.3 % (11.5-14.5)
[2017-12-21 07:09] LABS: Band Neutrophils % 1 % (0-10); Basophils % (Manual) 1 % (0-2); Lymphocytes % 24 % (15-49); Monocytes % (Manual) 7 % (1-12); Platelet Estimate NORMAL (NORMAL); RBC Morphology NORMAL (NORMAL); Segmented Neutrophils % 66 % (38-78)
--- NOTE | 2017-12-21 08:52 | Cat Scan Report ---
CLINICAL INFORMATION: Reason for Exam:hx dec output to colostomy, pain diffuse air fluid , bowel obstruction COMPARISON: 11/29/17 TECHNIQUE: Following injection of intravenous contrast the patient was scanned during the portal venous phase from the diaphragm through the symphysis pubis. Sagittal and coronal reformats were created.. FINDINGS: There are bands of discoid atelectasis in the lung bases. No pleural effusion is present. The liver is normal in size. The gallbladder is been removed. There is borderline dilatation of the intra and extrahepatic bile ducts. No abnormality seen the ampulla. Pancreas is normal in size and homogeneous. The spleen is also normal. The adrenals are normal. There is a 4 x 6 mm fat-containing nodule in the cortex medially in the upper pole left kidney. 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 The kidneys are otherwise normal. There is severe dilatation of the jejunum and ileum with multiple air-fluid levels. There is a transition point in the mid ileum. This may be due to an adhesion or midgut volvulus. There is a swirling pattern of the vessels at the root of the mesentery seen on the axial image.. No mass or inflammatory change is seen at the transition point. A large amount of stool is present in the distal descending and proximal transverse colon. Cecum contains stool but is nondistended. The terminal ileum is normal. There is an ostomy in the left anterior abdominal wall. There is no obstruction or inflammation at this level. The patient still has distal sigmoid and rectum. There are decompressed. No free fluid or free air present within the abdomen or pelvis. There is no abscess. The uterus and ovaries are normal. Urinary bladder is normally distended. IMPRESSION: High-grade small bowel obstruction in the general location of the mid ileum. This is probably due to an adhesion or midgut volvulus Interpreted and Authenticated by: Zay Juarez 12/21/17
--- NOTE | 2017-12-21 08:56 | XRay Report ---
HISTORY: Reason for Exam:abd pain dec output in colostomy , hx freg sbo FINDINGS: There are multiple dilated loops of small intestine with air-fluid levels. There is a moderate amount stool in the right side of the colon. No free intra-abdominal air is present. There are clips in gallbladder fossa and sternal wires. IMPRESSION: Recurrent distal small bowel obstruction Interpreted and Authenticated by: Zay Juarez 12/21/17
[2017-12-21] MEDS: ONDANSETRON 4 MG/2 ML VIAL IV PRN (11:09)
[2017-12-21] MEDS ORDERED: MAGNESIUM HYDROXIDE 30 ML ORAL.SUSP PO ONE (13:24)
--- NOTE | 2017-12-21 13:41 | General Surg History&Physical ---
History of Present Illness Patient information: Note initiated : 12/21/17 at 1:35 pm Service Date, if different from initiated Date: [] Patient: Dayanna Stephens a 57 y/o F admitted on 12/21/17 for abdominal pain. Chief Complaint: [] HPI: Ms. Stephens is a 57 year old F with known history of chronic intestinal pseudoobstruction as well as recurrent mechanical obstruction due to adhesions. She had recent laparotomy with adhesiolysis in mid November with finding of adhesions of the splenic flexure and the terminal ileum. A thorough complete adhesio lysis of the bowel was done and she was discharged home in stable condition. She had a recent increase in her pain medication which is oxycodone and her dose was doubled. In view of her baseline chronic pseudoobstruction is my opinion that this was enough to cause her to have obstruction due to severe constipation. CT of the abdomen reveals the entire colon to be filled with stool extending all the way to the stoma in the left lower quadrant. Her small bowel is dilated and extends back to the proximal jejunum. The radiologist has read adhesions in the mid bowel but there is liquid and gas distal to the mid bowel extending to the cecum. She is admitted and will be allowed to take liquids so that she can take laxatives. She will also be given Relistor to block the narcotic effect on her colon. It is anticipated that this will be enough for her colon to empty and this process will be adequately treated. A small bowel follow-through was ordered previously and there is transit of contrast through the small bowel. Review of Systems - Constitutional fatigue, headache(s), malaise, weakness - EENT Nose, mouth and throat: headache(s) - Cardiovascular dyspnea on exertion, palpatations, rapid heart rate - Respiratory dyspnea on exertion - Gastrointestinal abdominal pain, bloating, change in bowel habits, constipation, nausea, no vomiting - Genitourinary Genitourinary: difficulty urinating, urinary frequency, urinary incontinence - Musculoskeletal arthralgias, joint swelling, muscle weakness, myalgias, stiffness - Integumentary no bleeding lesions, no changing lesions, no pruritus, no rash - Neurological headache(s) - Psychiatric depression - Endocrine fatigue, heat intolerance, palpitations - Hematologic/Lymphatic no easy bleeding, no easy bruising, no lymphadenopathy - Allergic/Immunologic no tongue swelling, no throat swelling, no uticaria, no wheezing, no lip swelling Past History Past medical history: Sjogren's syndrome Chronic obstructive lung disease Sarcoidosis Myasthenia gravis History of achalasia Osteoarthritis Hypothyroidism Chronic intestinal pseudoobstruction Past surgical history: Cholecystectomy Left knee meniscectomy Thymectomy Heller myotomy with toupee fundoplication Umbilical hernia repair Sigmoid colectomy with colostomy Exploratory laparotomy with adhesiolysis 2 Past family history: Coronary artery disease in both parents Past social history: Former smoker Social drinker Denies drug use Medications and Allergies Home Medications Medication Instructions Recorded Confirmed Type RX: predniSONE [Prednisone] 20 mg PO QAC #4 tab 05/18/16 12/21/17 Rx RX: DULoxetine [Cymbalta] 30 mg PO BID 11/30/16 12/21/17 History RX: Linaclotide [Linzess] 72 mcg PO DAILY 11/30/16 12/21/17 History RX: Levothyroxine [Synthroid] 250 mcg PO QAMAC 08/20/17 12/21/17 History RX: Acetaminophen W/Codeine #3 2 cap PO Q4-6HP PRN 09/18/17 12/21/17 History [Tylenol #3] RX: Calcium Carbonate 1,200 mg PO BID 09/18/17 12/21/17 History RX: Naproxen (Pp) [Aleve (Pp)] 2 tab PO BID 09/18/17 12/21/17 History RX: Polyethylene Glycol 3350 17 gm PO BID 09/18/17 12/21/17 History [Miralax] calcitriol 0.25 mcg capsule 0.5 mcg PO TID cap 11/05/17 12/21/17 History nitroglycerin 0.4 mg sublingual 0.4 mg SUBLINGUAL Q5M PRN 11/05/17 12/21/17 History tablet omeprazole 20 mg capsule,delayed 20 mg PO BID 11/05/17 12/21/17 History release RX: Lisinopril [Zestril] 20 mg PO BID #60 tab 12/06/17 12/21/17 Rx oxycodone-acetaminophen 10 mg-325 1 tab PO Q4HP PRN #60 tab 12/09/17 12/21/17 Rx mg tablet Allergies Allergy/AdvReac Type Severity Reaction Status Date / Time Sulfa (Sulfonamide Allergy Severe Anaphylaxis Verified 12/21/17 05:00 Antibiotics) metoclopramide [From Reglan] AdvReac Intermediate Anxiety Verified 12/21/17 05: 00 steri strips Allergy Severe Blister Uncoded 12/18/17 13:20 Exam Temp Pulse Resp BP Pulse Ox 98.6 F 125 H 18 122/86 94 12/21/17 09:37 12/21/17 09:37 12/21/17 09:37 12/21/17 09:37 12/21/17 09:37 - General physical appearance well developed, well nourished, moderate distress, moderate pain, chronically ill, obese - Eyes PERRL, normal ocular movement - ENT normal pinna, normal nares, normal mucosa, no hearing loss, no congestion - Head Head exam IM: Present: atraumatic, normocephalic - Neck no masses, no bruits, trachea midline, no lymphadectomy, no venous distension - Cardiovascular Cardiovascular exam IM: Present: normal rate and rhythm, RRR, +S1, +S2, tachycardia. Absent: gallop, JVD - Respiratory normal expansion, normal respiratory effort, clear to percussion, clear to auscultation - Abdomen Abdomen: Present: soft, tender (Mildly tender in midabdomen; good active bowel sounds; well-healed midline incision; well formed stoma left lower quadrant), bowel sounds, distended Hernia: Present: none - Genitourinary Present: normal external genitalia - Integumentary Present: no rash, no growths, no abnormal pigmentation - Neurologic Present: normal coordination, normal sensation - Musculoskeletal Present: normal gait, normal posture - Psychiatric Present: oriented to time, oriented to person, oriented to place, speech is normal, memory intact Assessment and Plan (1) Chronic intestinal pseudo-obstruction Completion of small bowel follow-through Check abdominal series in the morning May have clear liquids in order to take laxatives Status: Acute (2) Hypocalcemia Continue home medications Status: Acute (3) Myasthenia gravis Status: Acute (4) Hypothyroidism Continue home medications Status: Acute (5) Constipation due to pain medication therapy Relistor 12 mg subcu daily 3 Status: Acute (6) Hypertension Continue home medications Status: Chronic Qualifiers: Hypertension type: essential hypertension Qualified Code(s): I10 - Essential (primary) hypertension
[2017-12-21] MEDS: CALCITRIOL 0.25 MCG CAPSULE PO SCH ×2 (15:38→20:09)
[2017-12-21] MEDS: METHYLNALTREXONE BROMIDE 12 MG/0.6 ML SYRINGE SQ SCH (15:40)
[2017-12-21] MEDS: PANTOPRAZOLE 40 MG VIAL IV SCH (16:03)
[2017-12-21] MEDS ORDERED: LORazepam 2 MG/ML VIAL IV PRN (19:21)
[2017-12-21] MEDS: CALCIUM CARBONATE 1,250 MG/5 ML ORAL.SUSP PO SCH (20:09)
[2017-12-21] MEDS: LISINOPRIL 20 MG TABLET PO SCH (20:09)
[2017-12-21] MEDS: DULoxetine 30 MG CAPSULE PO SCH (20:09)
[2017-12-22] MEDS: PROMETHAZINE 25 MG/ML VIAL IV PRN ×2 (01:49→22:40)
[2017-12-22] MEDS: HYDROmorphone 2 MG/ML VIAL IV PRN ×5 (03:03→20:51)
[2017-12-22] MEDS: 0.9 % SODIUM CHLORIDE 1,000 ML IV SCH ×3 (03:04→14:46)
[2017-12-22] MEDS: PANTOPRAZOLE 40 MG VIAL IV SCH ×2 (07:43→17:15)
[2017-12-22] MEDS: LEVOTHYROXINE 125 MCG TABLET PO SCH (07:43)
[2017-12-22] MEDS: predniSONE 20 MG TABLET PO SCH (07:44)
[2017-12-22] MEDS: LISINOPRIL 20 MG TABLET PO SCH ×2 (08:12→20:50)
[2017-12-22] MEDS: CALCIUM CARBONATE 1,250 MG/5 ML ORAL.SUSP PO SCH ×2 (08:12→20:50)
[2017-12-22] MEDS: METHYLNALTREXONE BROMIDE 12 MG/0.6 ML SYRINGE SQ SCH (08:12)
[2017-12-22] MEDS: DULoxetine 30 MG CAPSULE PO SCH ×2 (08:12→20:50)
[2017-12-22] MEDS: CALCITRIOL 0.25 MCG CAPSULE PO SCH ×3 (08:12→20:50)
[2017-12-22] MEDS: Linaclotide [Linzess] 72 MCG Capsule PO SCH (08:15)
--- NOTE | 2017-12-22 08:56 | XRay Report ---
HISTORY: Reason for Exam:Small bowel obstruction FINDINGS: Patient was given Gastrografin contrast to drink orally. Prior to this study she had received some oral barium for an abdominal CT. She had also been given intravenous contrast. There is opacification of the renal collecting systems and bladder. The kidneys are nondilated. Images were obtained up to 12 hours after drinking the Gastrografin contrast. There is severe high-grade distal small bowel obstruction. The duodenum and jejunum are dilated and contain multiple air-fluid levels. At 12 hours none of the contrast had passed into the colon. Segments of small bowel measure up to 7.2 cm in diameter. IMPRESSION: High grade distal small bowel obstruction of undetermined etiology Interpreted and Authenticated by: Zay Juarez 12/22/17
--- NOTE | 2017-12-22 08:59 | XRay Report ---
HISTORY: Reason for Exam:f/u of SBO FINDINGS: Most of the oral contrast which the patient drank yesterday is now within normal caliber colon. There are still several loops of dilated small intestine in the mid abdomen which contain air-fluid levels. They are significantly less distended today than they were yesterday. No free intra-abdominal air is present. The transition point in the small bowel cannot be identified. IMPRESSION: Improving distal small bowel obstruction Interpreted and Authenticated by: Zay Juarez 12/22/17
--- NOTE | 2017-12-22 12:22 | General Surgery Progress Note ---
Subjective Patient reports: feels better, pain is less, tolerating liquids well, flatus, bowel movement, nausea, afebrile Narrative: Note initiated : 12/22/17 at 12:19 pm Service Date, if different from initiated Date: [] Patient: Dayanna Stephens 57 y/o F admitted on 12/21/17 for abdominal pain. Chief Complaint: [Patient has improved. She had 2 episodes of vomiting last evening but has started having large bowel movements today. She is also passing large volumes of flatus. She had 350 cc and 250 cc of measured stool in her stoma appliance. Her pain and nausea has improved. X-rays today show that most of the contrast is in the colon though there are 3 loops of dilated small bowel remaining. She still has resting tachycardia but this has occurred each time that she has had severe constipation or partial obstruction. Blood pressure is stable.] Objective Temp Pulse Resp BP Pulse Ox 97.8 F 112 H 20 121/79 92 12/22/17 11:24 12/22/17 11:24 12/22/17 11:24 12/22/17 11:24 12/22/17 11:24 - Additional Data Intake & Output - Last 24 hours: Intake & Output 12/20/17 12/21/17 12/22/17 12/23/17 04:59 04:59 05:59 05:59 Intake Total Output Total 1500 / 1500 Balance -1500 / -1500 Weight - General physical appearance well developed, well nourished, no distress - Eyes PERRL, normal ocular movement - ENT normal pinna, normal nares, normal mucosa, no hearing loss, no congestion - Neck no masses, no bruits, trachea midline, no lymphadectomy, no venous distension - Respiratory normal expansion, normal respiratory effort, clear to percussion, clear to auscultation - Cardiovascular Cardiovascular exam: Present: normal rate and rhythm, RRR, +S1, +S2, tachycardia. Absent: JVD - Abdomen soft, non tender, bowel sounds (Patient has good active bowel sounds; there is minimal distention) - Integumentary no rash, no growths, no abnormal pigmentation - Neurologic normal coordination, normal sensation - Musculoskeletal normal gait, normal posture - Psychiatric oriented to time, oriented to person, oriented to place, speech is normal, memory intact - Labs 12/21/17 05:55 12/22/17 12:13 - Imaging Abdominal x-ray: report reviewed, image reviewed Assessment and Plan (1) Chronic intestinal pseudo-obstruction Status: Acute Assessment and plan: Continue with doses of milk of magnesia Check small bowel x-rays in the morning Delay increasing diet until tomorrow Current Visit: Yes (2) Hypocalcemia Status: Acute Assessment and plan: Continue home medication Current Visit: No (3) Myasthenia gravis Status: Acute Current Visit: No (4) Hypothyroidism Status: Acute Assessment and plan: Continue home medication Check TSH and T4 Current Visit: No (5) Constipation due to pain medication therapy Status: Acute Assessment and plan: Continue with final doses of Relistor Current Visit: No (6) Hypertension Status: Chronic Current Visit: No - Time Spent With Patient Total time spent is greater than 50% in coordination of care (as documented) at patient's floor/unit and/or counseling patient:
[2017-12-22] MEDS: MAGNESIUM HYDROXIDE 30 ML ORAL.SUSP PO SCH ×4 (12:50→23:10)
[2017-12-22 13:27] LABS: Basophils # (Auto) 0 K/mcL (0.0-0.3); Basophils % (Auto) 0.1 % (0.0-2.0); Eosinophils # (Auto) 0.4 K/mcL (0.0-0.7); Eosinophils % (Auto) 3.9 % (0.0-7.0); Granulocytes % (Auto) 84.8 % (38.0-78.0); Lymphocytes # (Auto) 0.9 K/mcL (1.5-4.8); Lymphocytes % (Auto) 9.5 % (15.5-49.0); Mean Cell Volume 87.6 fL (80.0-100.0); Mean Corpuscular HGB Conc 32.8 g/dL (31.0-36.0); Mean Corpuscular Hemoglobin 28.7 pg (26.0-34.0); Monocytes # (Auto) 0.2 K/mcL (0.1-0.9); Monocytes % (Auto) 1.7 % (1.0-12.0); Platelet Count 272 K/mcL (140-440); RBC 4.04 M/mcL (4.00-5.20); Red Cell Distribution Width 15.2 % (11.5-14.5)
[2017-12-22 13:45] LABS: ALT/SGPT 18 U/l (0-40); Albumin 3.4 gm/dL (3.2-5.2); Albumin/Globulin Ratio 1.3 (1.0-2.3); Alkaline Phosphatase 72 U/L (39-117); Bilirubin,Direct < 0.2 mg/dL (0.0-0.3); Blood Urea Nitrogen 18 mg/dl (6-20); Gamma Glutamyl Transpeptidase 30 U/L (5-36); Uric Acid 5.6 mg/dL (2.5-8.0)
[2017-12-22] MEDS: ACETAMINOPHEN 1,000 MG/100 ML BOTTLE IV PRN (15:21)
[2017-12-23] MEDS: 0.9 % SODIUM CHLORIDE 1,000 ML IV SCH ×2 (01:17→14:27)
[2017-12-23] MEDS: HYDROmorphone 2 MG/ML VIAL IV PRN ×7 (03:12→23:50)
[2017-12-23] MEDS: MAGNESIUM HYDROXIDE 30 ML ORAL.SUSP PO SCH (03:55)
[2017-12-23 05:32] LABS: Basophils # (Auto) 0 K/mcL (0.0-0.3); Basophils % (Auto) 0.5 % (0.0-2.0); Eosinophils # (Auto) 0.5 K/mcL (0.0-0.7); Eosinophils % (Auto) 6.8 % (0.0-7.0); Granulocytes % (Auto) 55.8 % (38.0-78.0); Lymphocytes # (Auto) 1.9 K/mcL (1.5-4.8); Lymphocytes % (Auto) 26.5 % (15.5-49.0); Mean Cell Volume 87.9 fL (80.0-100.0); Mean Corpuscular HGB Conc 32.5 g/dL (31.0-36.0); Mean Corpuscular Hemoglobin 28.6 pg (26.0-34.0); Monocytes # (Auto) 0.8 K/mcL (0.1-0.9); Monocytes % (Auto) 10.4 % (1.0-12.0); Platelet Count 246 K/mcL (140-440); RBC 3.68 M/mcL (4.00-5.20); Red Cell Distribution Width 15.5 % (11.5-14.5)
[2017-12-23 05:47] LABS: ALT/SGPT 17 U/l (0-40); Albumin 3.1 gm/dL (3.2-5.2); Albumin/Globulin Ratio 1.3 (1.0-2.3); Alkaline Phosphatase 60 U/L (39-117); Bilirubin,Direct < 0.2 mg/dL (0.0-0.3); Blood Urea Nitrogen 11 mg/dl (6-20); Gamma Glutamyl Transpeptidase 27 U/L (5-36); Uric Acid 5.5 mg/dL (2.5-8.0)
[2017-12-23 06:04] LABS: T4 (Thyroxine) 7.9 ug/dl (5.0-12.0)
[2017-12-23] MEDS: PANTOPRAZOLE 40 MG VIAL IV SCH ×2 (06:43→17:55)
[2017-12-23] MEDS: LEVOTHYROXINE 125 MCG TABLET PO SCH (06:43)
[2017-12-23] MEDS: CALCITRIOL 0.25 MCG CAPSULE PO SCH ×3 (08:58→21:36)
[2017-12-23] MEDS: METHYLNALTREXONE BROMIDE 12 MG/0.6 ML SYRINGE SQ SCH (08:58)
[2017-12-23] MEDS: CALCIUM CARBONATE 1,250 MG/5 ML ORAL.SUSP PO SCH ×2 (08:58→21:36)
[2017-12-23] MEDS: LISINOPRIL 20 MG TABLET PO SCH ×2 (08:58→21:36)
[2017-12-23] MEDS: DULoxetine 30 MG CAPSULE PO SCH ×2 (08:58→21:36)
[2017-12-23] MEDS: predniSONE 20 MG TABLET PO SCH (08:58)
[2017-12-23] MEDS: Linaclotide [Linzess] 72 MCG Capsule PO SCH (08:59)
[2017-12-23] MEDS: ACETAMINOPHEN 1,000 MG/100 ML BOTTLE IV PRN ×2 (11:43→19:17)
--- NOTE | 2017-12-23 13:29 | XRay Report ---
CLINICAL INFORMATION: History of small bowel obstruction TECHNIQUE: Supine and upright abdomen COMPARISON: Multiple previous plain film examinations and CT scans. Most recent plain film studies are dated 12/22/2017, 12/21/2017, 11/30/2017, 11/28/2017, 10/23/2017. Previous CT scans dated 12/21/2017 and 11/29/2017. Small bowel contrast examination dated 12/21/2017 FINDINGS: There is a left lower quadrant colostomy. There is contrast material within the colostomy bag. This contrast material is from examination dated 12/21/2017. There is contrast material within the colon. There is persistent dilatation of small bowel. Maximum cross-sectional diameter of the small bowel measures approximate 7 cm. There are scattered air-fluid levels. There is no biliary or portal venous gas. No pneumatosis. The right hemidiaphragm is not completely included on this examination but there is no definite evidence for pneumoperitoneum. Findings may be secondary to partial mechanical small bowel obstruction although severe ileus is possible. IMPRESSION: 1. Previous partial colectomy. Left lower quadrant colostomy 2. There is contrast material within the colon and within the colostomy bag 3. Persistent dilated gas-filled small bowel consistent with ileus or partial obstruction. Interpreted and Authenticated by: All Cormier 12/23/17
--- NOTE | 2017-12-23 14:13 | General Surgery Progress Note ---
Subjective Patient reports: feels better, pain is less, tolerating liquids well, flatus, bowel movement, afebrile Narrative: Note initiated : 12/23/17 at 2:11 pm Service Date, if different from initiated Date: [] Patient: Dayanna Stephens 57 y/o F admitted on 12/21/17 for Abdominal Pain/ Small Bowel Obstruction. Chief Complaint ] patient is improving. She had multiple bowel movements last night but still has not passed a lot of gas. Her abdominal distention is better. She has tolerated clear liquids without nausea. She still has a baseline tachycardia but less than 120. Other vital signs are good. She is passing hard and liquid stools. Abdominal x-ray shows dilated loops of small bowel and colon compatible with her chronic intestinal pseudoobstruction. Her white blood count remains normal. Objective Temp Pulse Resp BP Pulse Ox 98.6 F 103 H 14 112/65 95 12/23/17 12:45 12/23/17 12:45 12/23/17 12:45 12/23/17 12:45 12/23/17 12:45 - Additional Data Intake & Output - Last 24 hours: Intake & Output 12/21/17 12/22/17 12/23/17 12/24/17 04:59 05:59 05:59 05:59 Intake Total 4365 / 4365 1740 / 1740 Output Total 4100 / 4100 1100 / 1100 Balance 265 / 265 640 / 640 Weight 226 lb 11.2 oz - General physical appearance well developed, well nourished, no distress - Eyes PERRL, normal ocular movement - ENT normal pinna, normal nares, normal mucosa, no hearing loss, no congestion - Neck no masses, no bruits, trachea midline, no lymphadectomy, no venous distension - Respiratory normal expansion, normal respiratory effort, clear to percussion, clear to auscultation - Cardiovascular Cardiovascular exam: Present: normal rate and rhythm, RRR, +S1, +S2, tachycardia. Absent: JVD - Abdomen non tender, bowel sounds (present), surgical scars (none), masses (none) - Integumentary no rash, no growths, no abnormal pigmentation - Neurologic normal coordination, normal sensation - Musculoskeletal normal gait, normal posture - Psychiatric oriented to time, oriented to person, oriented to place, speech is normal, memory intact - Labs 12/23/17 04:30 12/23/17 04:30 Diabetes panel 12/23/17 Range/Units 04:30 Sodium 139 (133-145) mmol/L Potassium 3.6 (3.3-5.1) mmol/L Chloride 96 (96-108) mmol/L Carbon Dioxide 34 H (22-30) mmol/L BUN 11 (6-20) mg/dl Creatinine 0.7 (0.6-1.1) mg/dl Glucose 130 H (70-105) mg/dL Calcium 8.1 L (8.6-10.4) mg/dl AST 18 (0-37) U/l ALT 17 (0-40) U/l Alkaline Phosphatase 60 (39-117) U/L Total Protein 5.4 L (5.9-8.4) gm/dL Albumin 3.1 L (3.2-5.2) gm/dL Triglycerides 264 H (<150) mg/dl Thyroid panel 12/23/17 Range/Units 04:30 TSH 0.13 L (0.27-5.01) uIU/ml Thyroxine (T4) 7.9 (5.0-12.0) ug/dl Calcium panel 12/23/17 Range/Units 04:30 Calcium 8.1 L (8.6-10.4) mg/dl Phosphorus 3.9 (2.7-4.5) mg/dL Albumin 3.1 L (3.2-5.2) gm/dL Pituitary panel 12/23/17 12/23/17 Range/Units 04:30 04:30 Sodium 139 (133-145) mmol/L Potassium 3.6 (3.3-5.1) mmol/L Chloride 96 (96-108) mmol/L Carbon Dioxide 34 H (22-30) mmol/L BUN 11 (6-20) mg/dl Creatinine 0.7 (0.6-1.1) mg/dl Glucose 130 H (70-105) mg/dL Calcium 8.1 L (8.6-10.4) mg/dl TSH 0.13 L (0.27-5.01) uIU/ml Thyroxine (T4) 7.9 (5.0-12.0) ug/dl Adrenal panel 12/23/17 Range/Units 04:30 Sodium 139 (133-145) mmol/L Potassium 3.6 (3.3-5.1) mmol/L Chloride 96 (96-108) mmol/L Carbon Dioxide 34 H (22-30) mmol/L BUN 11 (6-20) mg/dl Creatinine 0.7 (0.6-1.1) mg/dl Glucose 130 H (70-105) mg/dL Calcium 8.1 L (8.6-10.4) mg/dl Total Bilirubin 0.3 (0.0-1.0) mg/dL AST 18 (0-37) U/l ALT 17 (0-40) U/l Alkaline Phosphatase 60 (39-117) U/L Total Protein 5.4 L (5.9-8.4) gm/dL Albumin 3.1 L (3.2-5.2) gm/dL - Imaging Abdominal x-ray: report reviewed, image reviewed Assessment and Plan (1) Chronic intestinal pseudo-obstruction Status: Acute Assessment and plan: MiraLAX 17 g p.o. every 4 hours for minimum of 4 glasses per day Check small bowel x-rays in the morning Delay increasing diet until tomorrow Saline lock IV Current Visit: Yes (2) Hypocalcemia Status: Acute Assessment and plan: Continue home medication Current Visit: No (3) Myasthenia gravis Status: Acute Current Visit: No (4) Hypothyroidism Status: Acute Assessment and plan: Continue home medication Current Visit: No (5) Constipation due to pain medication therapy Status: Acute Assessment and plan: Continue with final doses of Relistor Current Visit: No (6) Hypertension Status: Chronic Current Visit: No - Time Spent With Patient Total time spent is greater than 50% in coordination of care (as documented) at patient's floor/unit and/or counseling patient:
[2017-12-23] MEDS: POLYETHYLENE GLYCOL 3350 17 GM PACKET PO PRN ×2 (14:26→19:07)
[2017-12-23] MEDS: PROMETHAZINE 25 MG/ML VIAL IV PRN (21:43)
[2017-12-24] MEDS: POLYETHYLENE GLYCOL 3350 17 GM PACKET PO PRN ×5 (04:17→23:09)
[2017-12-24] MEDS: PROMETHAZINE 25 MG/ML VIAL IV PRN (04:21)
[2017-12-24] MEDS: HYDROmorphone 2 MG/ML VIAL IV PRN ×7 (04:31→23:09)
[2017-12-24 05:57] LABS: Basophils # (Auto) 0 K/mcL (0.0-0.3); Basophils % (Auto) 0.5 % (0.0-2.0); Eosinophils # (Auto) 0.4 K/mcL (0.0-0.7); Eosinophils % (Auto) 5.7 % (0.0-7.0); Granulocytes % (Auto) 53.3 % (38.0-78.0); Lymphocytes % (Auto) 29.4 % (15.5-49.0); Mean Cell Volume 87.5 fL (80.0-100.0); Mean Corpuscular HGB Conc 33.3 g/dL (31.0-36.0); Mean Corpuscular Hemoglobin 29.2 pg (26.0-34.0); Monocytes # (Auto) 0.8 K/mcL (0.1-0.9); Monocytes % (Auto) 11.1 % (1.0-12.0); Platelet Count 270 K/mcL (140-440); RBC 4.17 M/mcL (4.00-5.20); Red Cell Distribution Width 15.1 % (11.5-14.5)
[2017-12-24 06:28] LABS: ALT/SGPT 19 U/l (0-40); Albumin 3.6 gm/dL (3.2-5.2); Albumin/Globulin Ratio 1.4 (1.0-2.3); Alkaline Phosphatase 73 U/L (39-117); Bilirubin,Direct < 0.2 mg/dL (0.0-0.3); Blood Urea Nitrogen 5 mg/dl (6-20); Gamma Glutamyl Transpeptidase 27 U/L (5-36); Uric Acid 5.6 mg/dL (2.5-8.0)
[2017-12-24] MEDS: PANTOPRAZOLE 40 MG VIAL IV SCH ×2 (07:29→17:05)
[2017-12-24] MEDS: LEVOTHYROXINE 125 MCG TABLET PO SCH (07:30)
[2017-12-24] MEDS: predniSONE 20 MG TABLET PO SCH (07:30)
[2017-12-24] MEDS: LISINOPRIL 20 MG TABLET PO SCH ×2 (09:02→21:38)
[2017-12-24] MEDS: CALCITRIOL 0.25 MCG CAPSULE PO SCH ×3 (09:02→21:37)
[2017-12-24] MEDS: DULoxetine 30 MG CAPSULE PO SCH ×2 (09:02→21:37)
[2017-12-24] MEDS: Linaclotide [Linzess] 72 MCG Capsule PO SCH (09:03)
[2017-12-24] MEDS: CALCIUM CARBONATE 1,250 MG/5 ML ORAL.SUSP PO SCH ×2 (09:07→21:38)
[2017-12-24] MEDS ORDERED: IOPAMIDOL 100 ML BOTTLE IV ONE (11:14)
[2017-12-24] MEDS: ERYTHROMYCIN BASE 250 MG TABLET PO SCH ×3 (11:48→21:48)
[2017-12-24] MEDS: METHYLNALTREXONE BROMIDE 12 MG/0.6 ML SYRINGE SQ SCH (11:48)
--- NOTE | 2017-12-24 14:11 | Cat Scan Report ---
CLINICAL INFORMATION: Recurrent bowel obstruction COMPARISON: Multiple previous plain film examinations. CT scans dated 12/21/2017, 11/29/2017. TECHNIQUE: Axial images were obtained through the abdomen and pelvis. Sagittally and coronally reformatted images. 60 mL contrast material injected intravenously. Oral contrast material was administered. FINDINGS: Previous partial colectomy. There is a left lower quadrant colostomy. There is a Baez's pouch within the pelvis. There is a small amount of contrast material within the colostomy bag. There is contrast material within the ascending colon, transverse colon, and descending colon. Again demonstrated is dilated small bowel. Dilated small bowel is predominantly jejunum and proximal ileum. Small bowel is fluid filled. Most of the oral contrast material remains in the stomach. Small bowel is dilated to approximately 6 cm in maximum cross-sectional diameter. There is a mid ileal transition point which is in the pelvis and left of midline. Distal ileum is collapsed. Ileocecal valve is normal. There is no soft tissue mass. There is no evidence for volvulus or closed loop obstruction Mild right lower lobe atelectasis. No acute parenchymal consolidation. No pleural fluid. No pericardial fluid. There is a small hiatal hernia. There is contrast material within the distal esophagus. Liver is negative. No focal intrahepatic abnormality. There are surgical clips in the gallbladder fossa. No dilated bile ducts. Spleen is negative. No splenomegaly. Pancreas is atrophic. No pancreatic mass. Adrenal glands are negative. Kidneys are negative. No hydronephrosis. No solid mass. Uterus is atrophic and may have been removed. No adnexal mass. No free pelvic fluid. No pneumoperitoneum. No pneumatosis. No biliary or portal venous gas. Abdominal aorta is negative. No abdominal aortic aneurysm. IMPRESSION: 1. Previous partial colectomy. Left lower quadrant colostomy as above. 2. Persistent or recurrent mechanical small bowel obstruction. Small bowel is dilated to approximately 6 cm. There is a mid ileal transition point. The exam was performed using radiation dose optimization techniques including, but not limited to, automated exposure control, adjustment of the mA and/or kV according to patient size and use of iterative reconstruction technique. Interpreted and Authenticated by: All Cormier 12/24/17
--- NOTE | 2017-12-24 14:43 | General Surgery Progress Note ---
Subjective Patient reports: feels better, still having pain, pain is less, tolerating liquids well, no flatus, bowel movement, nausea, afebrile Narrative: Note initiated : 12/24/17 at 2:35 pm Service Date, if different from initiated Date: [] Patient: Dayanna Stephens 57 y/o F admitted on 12/21/17 for Abdominal Pain/ Small Bowel Obstruction. Chief Complaint: [Patient continues to have crampy abdominal pain. She had output of 2200 cc of stool on yesterday and 600 cc so far today. She is also passing large volumes of gas. Abdominal x-rays still shows a dilated loops of small bowel so and oral contrast CT was done which suggests that there is a mid gut partial obstruction with a definable transition point. Her colon is primarily decompressed as is her terminal ileum. 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 Discussed with patient the need to have TPN since she cannot be started on regular diet. I counseled her for placement of a subcutaneous central venous port and this will be done tomorrow. If she has not decompressed by Saturday I will proceed with yet another exploratory laparotomy.] Objective Temp Pulse Resp BP Pulse Ox 97.3 F 109 H 18 159/92 95 12/24/17 11:44 12/24/17 04:00 12/24/17 11:44 12/24/17 11:44 12/24/17 11:44 - Additional Data Intake & Output - Last 24 hours: Intake & Output 12/22/17 12/23/17 12/24/17 12/25/17 05:59 05:59 05:59 05:59 Intake Total 4365 / 4365 4040 / 4040 700 / 700 Output Total 4100 / 4100 5105 / 5105 Balance 265 / 265 -1065 / -1065 700 / 700 Weight 226 lb 11.2 oz 227 lb 6.4 oz 227 lb 6.4 oz - General physical appearance well developed, well nourished, no distress, severe distress - Eyes PERRL, normal ocular movement - ENT normal pinna, normal nares, normal mucosa, no hearing loss, no congestion - Neck no masses, no bruits, trachea midline, no lymphadectomy, no venous distension - Respiratory normal expansion, normal respiratory effort, clear to percussion, clear to auscultation - Cardiovascular Cardiovascular exam: Present: normal rate and rhythm, +S1, +S2. Absent: JVD - Abdomen tender (Mild tenderness in lower midline and immediately beneath the stoma.), bowel sounds (present), surgical scars (none), masses (none) - Integumentary no rash, no growths, no abnormal pigmentation - Neurologic normal coordination, normal sensation - Musculoskeletal normal gait, normal posture - Psychiatric oriented to time, oriented to person, oriented to place, speech is normal, memory intact - Labs 12/24/17 04:40 12/24/17 04:40 Diabetes panel 12/24/17 Range/Units 04:40 Sodium 140 (133-145) mmol/L Potassium 3.7 (3.3-5.1) mmol/L Chloride 95 L (96-108) mmol/L Carbon Dioxide 33 H (22-30) mmol/L BUN 5 L (6-20) mg/dl Creatinine 0.7 (0.6-1.1) mg/dl Glucose 127 H (70-105) mg/dL Calcium 10.0 (8.6-10.4) mg/dl AST 19 (0-37) U/l ALT 19 (0-40) U/l Alkaline Phosphatase 73 (39-117) U/L Total Protein 6.2 (5.9-8.4) gm/dL Albumin 3.6 (3.2-5.2) gm/dL Triglycerides 266 H (<150) mg/dl Calcium panel 12/24/17 Range/Units 04:40 Calcium 10.0 (8.6-10.4) mg/dl Phosphorus 3.9 (2.7-4.5) mg/dL Albumin 3.6 (3.2-5.2) gm/dL Pituitary panel 12/24/17 Range/Units 04:40 Sodium 140 (133-145) mmol/L Potassium 3.7 (3.3-5.1) mmol/L Chloride 95 L (96-108) mmol/L Carbon Dioxide 33 H (22-30) mmol/L BUN 5 L (6-20) mg/dl Creatinine 0.7 (0.6-1.1) mg/dl Glucose 127 H (70-105) mg/dL Calcium 10.0 (8.6-10.4) mg/dl Adrenal panel 12/24/17 Range/Units 04:40 Sodium 140 (133-145) mmol/L Potassium 3.7 (3.3-5.1) mmol/L Chloride 95 L (96-108) mmol/L Carbon Dioxide 33 H (22-30) mmol/L BUN 5 L (6-20) mg/dl Creatinine 0.7 (0.6-1.1) mg/dl Glucose 127 H (70-105) mg/dL Calcium 10.0 (8.6-10.4) mg/dl Total Bilirubin 0.2 (0.0-1.0) mg/dL AST 19 (0-37) U/l ALT 19 (0-40) U/l Alkaline Phosphatase 73 (39-117) U/L Total Protein 6.2 (5.9-8.4) gm/dL Albumin 3.6 (3.2-5.2) gm/dL Assessment and Plan (1) Chronic intestinal pseudo-obstruction Status: Acute Assessment and plan: MiraLAX 17 g p.o. every 4 hours for minimum of 4 glasses per Delay increasing diet until tomorrow Port-A-Cath placement tomorrow for TPN Delay operative therapy for the next 2 days to give the erythromycin time to work Current Visit: Yes (2) Hypocalcemia Status: Acute Assessment and plan: Continue home medication Current Visit: No (3) Myasthenia gravis Status: Acute Current Visit: No (4) Hypothyroidism Status: Acute Assessment and plan: Continue home medication Current Visit: No (5) Constipation due to pain medication therapy Status: Acute Assessment and plan: Continue with final doses of Relistor Current Visit: No (6) Hypertension Status: Chronic Current Visit: No - Time Spent With Patient Total time spent is greater than 50% in coordination of care (as documented) at patient's floor/unit and/or counseling patient:
[2017-12-24] MEDS: ONDANSETRON 4 MG/2 ML VIAL IV PRN (21:38)
[2017-12-25] MEDS: HYDROmorphone 2 MG/ML VIAL IV PRN ×6 (03:20→20:52)
[2017-12-25] MEDS ORDERED: cefOXitin 2 GM VIAL IV SCH ×2 (06:30→11:44)
[2017-12-25 06:40] LABS: Basophils # (Auto) 0 K/mcL (0.0-0.3); Basophils % (Auto) 0.4 % (0.0-2.0); Eosinophils # (Auto) 0.6 K/mcL (0.0-0.7); Eosinophils % (Auto) 6.8 % (0.0-7.0); Granulocytes % (Auto) 54.3 % (38.0-78.0); Lymphocytes # (Auto) 2.3 K/mcL (1.5-4.8); Mean Cell Volume 87.4 fL (80.0-100.0); Mean Corpuscular HGB Conc 33.2 g/dL (31.0-36.0); Mean Corpuscular Hemoglobin 29.1 pg (26.0-34.0); Monocytes % (Auto) 11.5 % (1.0-12.0); Platelet Count 321 K/mcL (140-440); RBC 4.19 M/mcL (4.00-5.20); Red Cell Distribution Width 15.5 % (11.5-14.5)
[2017-12-25] MEDS: PANTOPRAZOLE 40 MG VIAL IV SCH ×2 (07:05→17:42)
[2017-12-25 07:42] LABS: ALT/SGPT 23 U/l (0-40); Albumin 3.4 gm/dL (3.2-5.2); Albumin/Globulin Ratio 1.2 (1.0-2.3); Alkaline Phosphatase 77 U/L (39-117); Bilirubin,Direct < 0.2 mg/dL (0.0-0.3); Blood Urea Nitrogen 6 mg/dl (6-20); Gamma Glutamyl Transpeptidase 29 U/L (5-36); Uric Acid 6.1 mg/dL (2.5-8.0)
[2017-12-25] MEDS: predniSONE 20 MG TABLET PO SCH (08:12)
[2017-12-25] MEDS: LEVOTHYROXINE 125 MCG TABLET PO SCH (08:12)
[2017-12-25] MEDS ORDERED: BUPIVACAINE 0.5% 50 ML VIAL IJ ONE (08:31)
[2017-12-25] MEDS ORDERED: HEPARIN SODIUM,PORCINE/PF 500 UNIT/5 ML SYRINGE IV ONE (08:45)
--- NOTE | 2017-12-25 08:49 | XRay Report ---
CLINICAL INFORMATION: History of recurrent small bowel obstruction TECHNIQUE: Supine and upright abdomen COMPARISON: Multiple previous plain film examination. Most recent plain film studies dated 12/23/2017. Previous CT scan dated 12/24/2017. FINDINGS: Elevated right hemidiaphragm. There is density at the right lung base consistent with atelectasis. There is a left lower quadrant colostomy. There is gas in the ascending colon, transverse colon, and portion of the descending colon. There is small bowel gas. Small bowel dilatation is decreased as compared with previous examinations. There are scattered nonspecific air-fluid levels. No pneumoperitoneum. No biliary or portal venous gas. No pneumatosis. There are surgical clips in the right upper quadrant consistent with cholecystectomy. Bowel gas pattern is considered improved since previous examination. IMPRESSION: Interval improvement, see above discussion Interpreted and Authenticated by: All Cormier 12/25/17
[2017-12-25] MEDS ORDERED: POLYETHYLENE GLYCOL 3350 17 GM PACKET PO SCH (09:00)
[2017-12-25] MEDS ORDERED: fentaNYL 100 MCG/2 ML VIAL IV ONE (10:05)
[2017-12-25] MEDS ORDERED: PROPOFOL 200 MG/20 ML VIAL IV ONE (10:05)
[2017-12-25] MEDS ORDERED: MIDAZOLAM 2 MG/2 ML VIAL IV ONE (10:05)
--- NOTE | 2017-12-25 10:51 | XRay Report ---
CLINICAL INFORMATION: Left-sided Port-A-Cath placement TECHNIQUE: 0.8 minutes fluoroscopy utilized. Left-sided Port-A-Cath placement COMPARISON: None. FINDINGS: Spot films demonstrate catheter tip at the junction of the superior vena cava and right atrium IMPRESSION: Intraoperative fluoroscopy utilized for left-sided Port-A-Cath placement Interpreted and Authenticated by: All Cormier 12/25/17
--- NOTE | 2017-12-25 10:54 | Brief Operative Note ---
Date of procedure: 12/25/17 Pre-op diagnosis: chronic intestinal obstruction Post-op diagnosis: same Procedure: left subclavian port-a-cath insertion Grafts/Implants: Yes (power port) Anesthesia: MAC Complications: none Surgeon: Bertha Currie Specimens Removed/Pathology: none sent Condition: stable Disposition: PACU
--- NOTE | 2017-12-25 11:27 | XRay Report ---
INDICATION: Central venous catheter placement TECHNIQUE: AP chest x-ray,semiupright portable COMPARISON: 11/30/2017 FINDINGS:Previous median sternotomy. Interval placement of a left sided infusion catheter with its tip at the junction of superior vena cava and right atrium. Bibasilar parenchymal density consistent with atelectasis. No other parenchymal abnormalities. No pneumothorax. IMPRESSION: Left-sided infusion catheter with its tip at the junction of the superior vena cava and right atrium Interpreted and Authenticated by: All Cormier 12/25/17
[2017-12-25] MEDS ORDERED: PROMETHAZINE 25 MG/ML VIAL IV PRN (11:44)
[2017-12-25] MEDS: DULoxetine 30 MG CAPSULE PO SCH ×3 (12:14→20:57)
[2017-12-25] MEDS: LISINOPRIL 20 MG TABLET PO SCH ×3 (12:14→20:57)
[2017-12-25] MEDS: Linaclotide [Linzess] 72 MCG Capsule PO SCH ×2 (12:15→13:01)
[2017-12-25] MEDS: METHYLNALTREXONE BROMIDE 12 MG/0.6 ML SYRINGE SQ SCH (12:15)
[2017-12-25] MEDS: ERYTHROMYCIN BASE 250 MG CAPSULE PO SCH ×3 (12:16→20:52)
[2017-12-25] MEDS: ERYTHROMYCIN BASE 250 MG TABLET PO SCH (12:16)
[2017-12-25] MEDS: CALCIUM CARBONATE 1,250 MG/5 ML ORAL.SUSP PO SCH ×3 (12:17→20:52)
[2017-12-25] MEDS: CALCITRIOL 0.25 MCG CAPSULE PO SCH ×3 (12:19→20:57)
[2017-12-25] MEDS: POLYETHYLENE GLYCOL 3350 17 GM PACKET PO SCH ×3 (13:19→20:56)
[2017-12-25] MEDS: ACETAMINOPHEN 1,000 MG/100 ML BOTTLE IV PRN ×2 (15:35→21:42)
[2017-12-25] MEDS: ONDANSETRON 4 MG/2 ML VIAL IV PRN (20:51)
[2017-12-26] MEDS: HYDROmorphone 2 MG/ML VIAL IV PRN ×10 (00:01→22:45)
[2017-12-26] MEDS: POLYETHYLENE GLYCOL 3350 17 GM PACKET PO SCH ×5 (04:54→21:29)
[2017-12-26 06:10] LABS: ALT/SGPT 18 U/l (0-40); Albumin 3.4 gm/dL (3.2-5.2); Albumin/Globulin Ratio 1.6 (1.0-2.3); Alkaline Phosphatase 68 U/L (39-117); Bilirubin,Direct < 0.2 mg/dL (0.0-0.3); Blood Urea Nitrogen 5 mg/dl (6-20); Gamma Glutamyl Transpeptidase 22 U/L (5-36); Uric Acid 5.9 mg/dL (2.5-8.0)
[2017-12-26] MEDS: LEVOTHYROXINE 125 MCG TABLET PO SCH (07:30)
[2017-12-26] MEDS: PANTOPRAZOLE 40 MG VIAL IV SCH ×2 (07:30→17:22)
[2017-12-26] MEDS: predniSONE 20 MG TABLET PO SCH (07:33)
[2017-12-26] MEDS ORDERED: MAGNESIUM SULFATE 2 GM/50 ML BAG IV ONE ×2 (08:00→10:00)
--- NOTE | 2017-12-26 08:17 | XRay Report ---
CLINICAL INFORMATION: Recurrent bowel obstruction TECHNIQUE: Supine and upright abdomen COMPARISON: Plain film examination dated 12/25/2017. CT scan dated 12/24/2017 FINDINGS: There is gas within the cecum and ascending colon. Cecum measures approximately 9 cm in cross-sectional diameter. There is gas within small bowel. Small bowel is mildly prominent with scattered air-fluid levels. No pneumoperitoneum. No biliary or portal venous gas. No pneumatosis IMPRESSION: 1. Small bowel and colonic gas as above. 2. No acute abnormality. Interpreted and Authenticated by: All Cormier 12/26/17
[2017-12-26] MEDS: Linaclotide [Linzess] 72 MCG Capsule PO SCH (08:18)
[2017-12-26] MEDS: ERYTHROMYCIN BASE 250 MG CAPSULE PO SCH ×4 (08:18→21:29)
[2017-12-26] MEDS: CALCITRIOL 0.25 MCG CAPSULE PO SCH ×3 (08:19→21:30)
[2017-12-26] MEDS: DULoxetine 30 MG CAPSULE PO SCH ×2 (08:19→21:29)
[2017-12-26] MEDS: LISINOPRIL 20 MG TABLET PO SCH ×2 (08:19→21:30)
[2017-12-26] MEDS: CALCIUM CARBONATE 1,250 MG/5 ML ORAL.SUSP PO SCH ×2 (08:19→21:33)
[2017-12-26] MEDS ORDERED: METHYLNALTREXONE BROMIDE 12 MG/0.6 ML SYRINGE SQ SCH (09:00)
--- NOTE | 2017-12-26 14:50 | General Surgery Progress Note ---
Subjective Patient reports: feels better, still having pain, pain is less, tolerating liquids well, flatus, bowel movement, diarrhea, afebrile Narrative: Note initiated : 12/26/17 at 2:48 pm Service Date, if different from initiated Date: [] Patient: Dayanna Stephens 57 y/o F admitted on 12/21/17 for Abdominal Pain/ Small Bowel Obstruction. Chief Complaint: [Patient continues to gradually improve. She has had multiple bowel movements and large volume gas which has pushed off the wafer. To her stoma. She has less abdominal distention and she has less pain. She denies nausea and she has tolerated her liquid diet.] Objective Temp Pulse Resp BP Pulse Ox 97.2 F 95 H 14 123/82 95 12/26/17 12:00 12/26/17 12:00 12/26/17 12:00 12/26/17 12:00 12/26/17 12:00 - Additional Data Intake & Output - Last 24 hours: Intake & Output 12/24/17 12/25/17 12/26/17 12/27/17 05:59 05:59 05:59 05:59 Intake Total 4040 / 4040 1700 / 1700 1565 / 1565 100 / 100 Output Total 5105 / 5105 2625 / 2625 2765 / 2765 750 / 750 Balance -1065 / -1065 -925 / -925 -1200 / -1200 -650 / -650 Weight 227 lb 6.4 oz 232 lb 12.8 oz 231 lb 11.2 oz 231 lb 11.2 oz - General physical appearance well developed, well nourished, no distress - Eyes PERRL, normal ocular movement - ENT normal pinna, normal nares, normal mucosa, no hearing loss, no congestion - Neck no masses, no bruits, trachea midline, no lymphadectomy, no venous distension - Respiratory normal expansion, normal respiratory effort, clear to percussion, clear to auscultation - Cardiovascular Cardiovascular exam: Present: normal rate and rhythm, +S1, +S2, tachycardia. Absent: JVD - Abdomen non tender, bowel sounds (present), surgical scars (none), masses (none), distended ( Fullness across upper abdomen is much improved; she has good active bowel sounds; stoma is working appropriately) - Integumentary no rash, no growths, no abnormal pigmentation - Neurologic normal coordination, normal sensation - Musculoskeletal normal gait, normal posture - Psychiatric oriented to time, oriented to person, oriented to place, speech is normal, memory intact - Labs 12/25/17 05:22 12/26/17 04:30 Diabetes panel 12/26/17 Range/Units 04:30 Sodium 140 (133-145) mmol/L Potassium 4.0 (3.3-5.1) mmol/L Chloride 99 (96-108) mmol/L Carbon Dioxide 30 (22-30) mmol/L BUN 5 L (6-20) mg/dl Creatinine 0.7 (0.6-1.1) mg/dl Glucose 124 H (70-105) mg/dL Calcium 9.6 (8.6-10.4) mg/dl AST 16 (0-37) U/l ALT 18 (0-40) U/l Alkaline Phosphatase 68 (39-117) U/L Total Protein 5.5 L (5.9-8.4) gm/dL Albumin 3.4 (3.2-5.2) gm/dL Triglycerides 166 H (<150) mg/dl Calcium panel 12/26/17 Range/Units 04:30 Calcium 9.6 (8.6-10.4) mg/dl Phosphorus 4.5 (2.7-4.5) mg/dL Albumin 3.4 (3.2-5.2) gm/dL Pituitary panel 12/26/17 Range/Units 04:30 Sodium 140 (133-145) mmol/L Potassium 4.0 (3.3-5.1) mmol/L Chloride 99 (96-108) mmol/L Carbon Dioxide 30 (22-30) mmol/L BUN 5 L (6-20) mg/dl Creatinine 0.7 (0.6-1.1) mg/dl Glucose 124 H (70-105) mg/dL Calcium 9.6 (8.6-10.4) mg/dl Adrenal panel 12/26/17 Range/Units 04:30 Sodium 140 (133-145) mmol/L Potassium 4.0 (3.3-5.1) mmol/L Chloride 99 (96-108) mmol/L Carbon Dioxide 30 (22-30) mmol/L BUN 5 L (6-20) mg/dl Creatinine 0.7 (0.6-1.1) mg/dl Glucose 124 H (70-105) mg/dL Calcium 9.6 (8.6-10.4) mg/dl Total Bilirubin 0.2 (0.0-1.0) mg/dL AST 16 (0-37) U/l ALT 18 (0-40) U/l Alkaline Phosphatase 68 (39-117) U/L Total Protein 5.5 L (5.9-8.4) gm/dL Albumin 3.4 (3.2-5.2) gm/dL Assessment and Plan (1) Chronic intestinal pseudo-obstruction Status: Acute Assessment and plan: MiraLAX 17 g p.o. every 4 hours for minimum of 4 glasses per Delay increasing diet Current Visit: Yes (2) Hypocalcemia Status: Acute Assessment and plan: Continue home medication Current Visit: No (3) Myasthenia gravis Status: Acute Current Visit: No (4) Hypothyroidism Status: Acute Assessment and plan: Continue home medication Current Visit: No (5) Constipation due to pain medication therapy Status: Acute Assessment and plan: Continue with final doses of Relistor Current Visit: No (6) Hypertension Status: Chronic Current Visit: No - Time Spent With Patient Total time spent is greater than 50% in coordination of care (as documented) at patient's floor/unit and/or counseling patient:
[2017-12-27] MEDS: HYDROmorphone 2 MG/ML VIAL IV PRN ×8 (01:56→22:42)
[2017-12-27] MEDS: ONDANSETRON 4 MG/2 ML VIAL IV PRN ×2 (03:39→21:22)
[2017-12-27] MEDS: POLYETHYLENE GLYCOL 3350 17 GM PACKET PO SCH ×5 (05:06→20:31)
[2017-12-27] MEDS: predniSONE 20 MG TABLET PO SCH (07:28)
[2017-12-27] MEDS: PANTOPRAZOLE 40 MG VIAL IV SCH ×2 (07:28→17:04)
[2017-12-27] MEDS: LEVOTHYROXINE 125 MCG TABLET PO SCH (07:28)
[2017-12-27 07:58] LABS: ALT/SGPT 20 U/l (0-40); Albumin 3.4 gm/dL (3.2-5.2); Albumin/Globulin Ratio 1.4 (1.0-2.3); Alkaline Phosphatase 75 U/L (39-117); Bilirubin,Direct < 0.2 mg/dL (0.0-0.3); Blood Urea Nitrogen 4 mg/dl (6-20); Gamma Glutamyl Transpeptidase 20 U/L (5-36); Uric Acid 5.6 mg/dL (2.5-8.0)
[2017-12-27] MEDS: CALCIUM CARBONATE 1,250 MG/5 ML ORAL.SUSP PO SCH ×2 (09:36→20:30)
[2017-12-27] MEDS: CALCITRIOL 0.25 MCG CAPSULE PO SCH ×3 (09:37→20:31)
[2017-12-27] MEDS: Linaclotide [Linzess] 72 MCG Capsule PO SCH (09:38)
[2017-12-27] MEDS: ERYTHROMYCIN BASE 250 MG CAPSULE PO SCH ×4 (09:38→20:30)
[2017-12-27] MEDS: LISINOPRIL 20 MG TABLET PO SCH ×2 (09:38→20:32)
[2017-12-27] MEDS: DULoxetine 30 MG CAPSULE PO SCH ×2 (09:38→20:30)
--- NOTE | 2017-12-27 13:53 | General Surgery Progress Note ---
Subjective Patient reports: feels better, still having pain, pain is less, tolerating liquids well, flatus, bowel movement, afebrile Narrative: Note initiated : 12/27/17 at 1:53 pm Service Date, if different from initiated Date: [] Patient: Dayanna Stephens 57 y/o F admitted on 12/21/17 for Abdominal Pain/ Small Bowel Obstruction. Chief Complaint: [Patient is feeling better. She still has some crampy abdominal pain but she is putting out large volume of liquid stool through her stoma. She does not have any nausea or vomiting. She is afebrile. Her magnesium is still only 1.4. Her other electrolytes are unremarkable. She is tolerating full liquid diet without difficulty] Objective Temp Pulse Resp BP Pulse Ox 96.6 F L 110 H 16 120/68 94 12/27/17 12:00 12/27/17 04:00 12/27/17 12:00 12/27/17 12:00 12/27/17 12:00 - Additional Data Intake & Output - Last 24 hours: Intake & Output 12/25/17 12/26/17 12/27/17 12/28/17 05:59 05:59 05:59 05:59 Intake Total 1700 / 1700 1565 / 1565 900 / 900 960 / 960 Output Total 2625 / 2625 2765 / 2765 2900 / 2900 Balance -925 / -925 -1200 / -1200 -2000 / -2000 960 / 960 Weight 232 lb 12.8 oz 231 lb 11.2 oz 233 lb 12.8 oz - General physical appearance well developed, well nourished, no distress, moderate pain - Eyes PERRL, normal ocular movement - ENT normal pinna, normal nares, normal mucosa, no hearing loss, no congestion - Neck no masses, no bruits, trachea midline, no lymphadectomy, no venous distension - Respiratory normal expansion, normal respiratory effort, clear to percussion, clear to auscultation - Cardiovascular Cardiovascular exam: Present: normal rate and rhythm, RRR, +S1, +S2. Absent: JVD - Abdomen tender (Mild tenderness across upper abdomen; good active bowel sounds), bowel sounds (present), surgical scars (none), masses (none) - Integumentary no rash, no growths, no abnormal pigmentation - Neurologic normal coordination, normal sensation - Musculoskeletal normal gait, normal posture - Psychiatric oriented to time, oriented to person, oriented to place, speech is normal, memory intact - Labs 12/25/17 05:22 12/27/17 05:23 Diabetes panel 12/27/17 Range/Units 05:23 Sodium 140 (133-145) mmol/L Potassium 3.6 (3.3-5.1) mmol/L Chloride 97 (96-108) mmol/L Carbon Dioxide 31 H (22-30) mmol/L BUN 4 L (6-20) mg/dl Creatinine 0.7 (0.6-1.1) mg/dl Glucose 129 H (70-105) mg/dL Calcium 9.2 (8.6-10.4) mg/dl AST 21 (0-37) U/l ALT 20 (0-40) U/l Alkaline Phosphatase 75 (39-117) U/L Total Protein 5.9 (5.9-8.4) gm/dL Albumin 3.4 (3.2-5.2) gm/dL Triglycerides 152 H (<150) mg/dl Calcium panel 12/27/17 Range/Units 05:23 Calcium 9.2 (8.6-10.4) mg/dl Phosphorus 3.4 (2.7-4.5) mg/dL Albumin 3.4 (3.2-5.2) gm/dL Pituitary panel 12/27/17 Range/Units 05:23 Sodium 140 (133-145) mmol/L Potassium 3.6 (3.3-5.1) mmol/L Chloride 97 (96-108) mmol/L Carbon Dioxide 31 H (22-30) mmol/L BUN 4 L (6-20) mg/dl Creatinine 0.7 (0.6-1.1) mg/dl Glucose 129 H (70-105) mg/dL Calcium 9.2 (8.6-10.4) mg/dl Adrenal panel 12/27/17 Range/Units 05:23 Sodium 140 (133-145) mmol/L Potassium 3.6 (3.3-5.1) mmol/L Chloride 97 (96-108) mmol/L Carbon Dioxide 31 H (22-30) mmol/L BUN 4 L (6-20) mg/dl Creatinine 0.7 (0.6-1.1) mg/dl Glucose 129 H (70-105) mg/dL Calcium 9.2 (8.6-10.4) mg/dl Total Bilirubin 0.3 (0.0-1.0) mg/dL AST 21 (0-37) U/l ALT 20 (0-40) U/l Alkaline Phosphatase 75 (39-117) U/L Total Protein 5.9 (5.9-8.4) gm/dL Albumin 3.4 (3.2-5.2) gm/dL - Imaging Abdominal x-ray: report reviewed, image reviewed Assessment and Plan (1) Chronic intestinal pseudo-obstruction Status: Acute Assessment and plan: MiraLAX 17 g p.o. every 4 hours for minimum of 4 glasses per advance to soft diet Repeat abdominal x-rays in the morning Current Visit: Yes (2) Hypocalcemia Status: Acute Assessment and plan: Continue home medication Current Visit: No (3) Myasthenia gravis Status: Acute Current Visit: No (4) Hypothyroidism Status: Acute Assessment and plan: Continue home medication Current Visit: No (5) Constipation due to pain medication therapy Status: Resolved Assessment and plan: Continue with final doses of Relistor Current Visit: No (6) Hypertension Status: Chronic Current Visit: No - Time Spent With Patient Total time spent is greater than 50% in coordination of care (as documented) at patient's floor/unit and/or counseling patient:
[2017-12-27] MEDS: MAGNESIUM SULFATE 32.48 MEQ in DEXTROSE 5% IN WATER 100 ML IV SCH ×2 (14:19→18:14)
[2017-12-27] MEDS ORDERED: MAGNESIUM SULFATE 8.12 MEQ/2 ML VIAL ONE ×2 (17:28→17:53)
[2017-12-28] MEDS: HYDROmorphone 2 MG/ML VIAL IV PRN ×5 (01:06→19:43)
[2017-12-28] MEDS: ONDANSETRON 4 MG/2 ML VIAL IV PRN ×2 (01:14→19:50)
[2017-12-28] MEDS: POLYETHYLENE GLYCOL 3350 17 GM PACKET PO SCH ×5 (05:41→21:12)
[2017-12-28] MEDS: LEVOTHYROXINE 125 MCG TABLET PO SCH (07:57)
[2017-12-28] MEDS: PANTOPRAZOLE 40 MG VIAL IV SCH ×2 (07:57→17:15)
[2017-12-28] MEDS: predniSONE 20 MG TABLET PO SCH (07:57)
[2017-12-28] MEDS: LORazepam 2 MG/ML VIAL IV PRN ×2 (08:12→21:11)
--- NOTE | 2017-12-28 09:16 | XRay Report ---
CLINICAL INFORMATION: Recurrent small bowel obstruction TECHNIQUE: Supine and upright abdomen COMPARISON: Multiple previous examinations. Most recent studies are dated 12/26/2017, 12/25/2017, 12/23/2017 FINDINGS: Persistent dilated gas-filled small bowel. There are air-fluid levels. There is some colonic gas. Overall appearance is unchanged. No pneumoperitoneum. No biliary or portal venous gas. No pneumatosis. IMPRESSION: 1. Abnormal bowel gas pattern remains consistent with at least partial mechanical small bowel obstruction 2. No significant interval change Interpreted and Authenticated by: All Cormier 12/28/17
[2017-12-28] MEDS: LISINOPRIL 20 MG TABLET PO SCH ×2 (09:56→21:13)
[2017-12-28] MEDS: CALCITRIOL 0.25 MCG CAPSULE PO SCH ×3 (09:56→21:12)
[2017-12-28] MEDS: DULoxetine 30 MG CAPSULE PO SCH ×2 (09:56→21:11)
[2017-12-28] MEDS: CALCIUM CARBONATE 1,250 MG/5 ML ORAL.SUSP PO SCH ×2 (10:01→21:15)
[2017-12-28] MEDS: ERYTHROMYCIN BASE 250 MG CAPSULE PO SCH ×4 (10:01→21:15)
[2017-12-28] MEDS: Linaclotide [Linzess] 72 MCG Capsule PO SCH (10:02)
--- NOTE | 2017-12-28 14:31 | General Surgery Progress Note ---
Subjective Patient reports: feels better, pain is less, tolerating liquids well, flatus, bowel movement, afebrile Narrative: Note initiated : 12/28/17 at 2:29 pm Service Date, if different from initiated Date: [] Patient: Dayanna Stephens 57 y/o F admitted on 12/21/17 for Abdominal Pain/ Small Bowel Obstruction. Chief Complaint: [Patient continues to do well. She was scheduled to have soft diet today but has not eating so far. She continues to have output through her stoma is primarily liquid stool and large volumes of gas. She denies nausea. She denies crampy abdominal pain at this time.] Objective Temp Pulse Resp BP Pulse Ox 98.2 F 108 H 16 113/76 92 12/28/17 11:38 12/28/17 04:00 12/28/17 11:38 12/28/17 11:38 12/28/17 11:38 - Additional Data Intake & Output - Last 24 hours: Intake & Output 12/26/17 12/27/17 12/28/17 12/29/17 05:59 05:59 05:59 05:59 Intake Total 1565 / 1565 900 / 900 2968 / 2968 Output Total 2765 / 2765 2900 / 2900 5375 / 5375 Balance -1200 / -1200 -2000 / -1999 -2407 / -2407 Weight 231 lb 11.2 oz 233 lb 12.8 oz 224 lb 3.2 oz - General physical appearance well developed, well nourished, no distress - Eyes PERRL, normal ocular movement - ENT normal pinna, normal nares, normal mucosa, no hearing loss, no congestion - Neck no masses, no bruits, trachea midline, no lymphadectomy, no venous distension - Respiratory normal expansion, normal respiratory effort, clear to percussion, clear to auscultation - Cardiovascular Cardiovascular exam: Present: normal rate and rhythm, RRR, +S1, +S2. Absent: JVD - Abdomen soft, non tender, bowel sounds (Good active bowel sounds; no significant tenderness) - Integumentary no rash, no growths, no abnormal pigmentation - Neurologic normal coordination, normal sensation - Musculoskeletal normal gait, normal posture - Labs 12/25/17 05:22 12/27/17 05:23 - Imaging Abdominal x-ray: report reviewed, image reviewed Assessment and Plan (1) Chronic intestinal pseudo-obstruction Status: Acute Assessment and plan: MiraLAX 17 g p.o. every 4 hours for minimum of 4 glasses per advance to soft diet Repeat abdominal x-rays in the morning Current Visit: Yes (2) Hypocalcemia Status: Acute Assessment and plan: Continue home medication Current Visit: No (3) Myasthenia gravis Status: Acute Current Visit: No (4) Hypothyroidism Status: Acute Assessment and plan: Continue home medication Current Visit: No (5) Constipation due to pain medication therapy Status: Resolved Assessment and plan: Continue with final doses of Relistor Current Visit: No (6) Hypertension Status: Chronic Current Visit: No - Time Spent With Patient Total time spent is greater than 50% in coordination of care (as documented) at patient's floor/unit and/or counseling patient:
[2017-12-29] MEDS: ACETAMINOPHEN 1,000 MG/100 ML BOTTLE IV PRN ×2 (03:11→20:29)
[2017-12-29] MEDS: HYDROmorphone 2 MG/ML VIAL IV PRN ×6 (03:59→21:24)
[2017-12-29] MEDS: POLYETHYLENE GLYCOL 3350 17 GM PACKET PO SCH ×5 (05:35→20:28)
[2017-12-29 06:09] LABS: Basophils # (Auto) 0 K/mcL (0.0-0.3); Basophils % (Auto) 0.3 % (0.0-2.0); Eosinophils # (Auto) 0.5 K/mcL (0.0-0.7); Eosinophils % (Auto) 7.2 % (0.0-7.0); Granulocytes % (Auto) 45.3 % (38.0-78.0); Lymphocytes # (Auto) 2.6 K/mcL (1.5-4.8); Lymphocytes % (Auto) 33.9 % (15.5-49.0); Mean Cell Volume 87.3 fL (80.0-100.0); Mean Corpuscular HGB Conc 32.6 g/dL (31.0-36.0); Mean Corpuscular Hemoglobin 28.5 pg (26.0-34.0); Monocytes % (Auto) 13.3 % (1.0-12.0); Platelet Count 296 K/mcL (140-440); Red Cell Distribution Width 15.4 % (11.5-14.5)
[2017-12-29 06:40] LABS: ALT/SGPT 48 U/l (0-40); Albumin 3.2 gm/dL (3.2-5.2); Albumin/Globulin Ratio 1.5 (1.0-2.3); Alkaline Phosphatase 85 U/L (39-117); Bilirubin,Direct < 0.2 mg/dL (0.0-0.3); Blood Urea Nitrogen 8 mg/dl (6-20); Gamma Glutamyl Transpeptidase 19 U/L (5-36); Uric Acid 5.5 mg/dL (2.5-8.0)
[2017-12-29] MEDS: PANTOPRAZOLE 40 MG VIAL IV SCH ×2 (07:11→17:02)
[2017-12-29] MEDS: LEVOTHYROXINE 125 MCG TABLET PO SCH (07:11)
[2017-12-29] MEDS: CALCITRIOL 0.25 MCG CAPSULE PO SCH ×3 (08:43→20:28)
[2017-12-29] MEDS: DULoxetine 30 MG CAPSULE PO SCH ×2 (08:43→20:28)
[2017-12-29] MEDS: CALCIUM CARBONATE 1,250 MG/5 ML ORAL.SUSP PO SCH ×2 (08:43→20:28)
[2017-12-29] MEDS: predniSONE 20 MG TABLET PO SCH (08:43)
[2017-12-29] MEDS: LISINOPRIL 20 MG TABLET PO SCH ×2 (08:43→20:29)
[2017-12-29] MEDS: Linaclotide [Linzess] 72 MCG Capsule PO SCH (08:44)
[2017-12-29] MEDS: ERYTHROMYCIN BASE 250 MG CAPSULE PO SCH ×4 (08:44→20:28)
--- NOTE | 2017-12-29 12:40 | General Surgery Progress Note ---
Subjective Patient reports: feels better, pain is less, tolerating a regular diet, flatus, bowel movement, nausea, afebrile Narrative: Note initiated : 12/29/17 at 12:40 pm Service Date, if different from initiated Date: [] Patient: Dayanna Stephens 57 y/o F admitted on 12/21/17 for Abdominal Pain/ Small Bowel Obstruction. Chief Complaint: [Patient continues to improve. She has had multiple bowel movements and large amount of flatus. She has much less crampy abdominal pain. She does have intermittent nausea but this is usually removed once she passes flatus. She is now tolerating regular diet without difficulty. I discussed with her the probability that she will be discharged in the morning. She will be discharged on MiraLAX, erythromycin base and intermittent milk of magnesia for adynamic ileus and intestinal pseudoobstruction.] Objective Temp Pulse Resp BP Pulse Ox 98.3 F 116 H 16 141/80 98 12/29/17 12:00 12/29/17 03:51 12/29/17 12:00 12/29/17 12:00 12/29/17 12:00 - Additional Data Intake & Output - Last 24 hours: Intake & Output 12/27/17 12/28/17 12/29/17 12/30/17 05:59 05:59 05:59 05:59 Intake Total 900 / 900 2968 / 2968 1560 / 1560 550 / 550 Output Total 2900 / 2900 5375 / 5375 2800 / 2800 1250 / 1250 Balance -2000 / -2000 -2407 / -2407 -1240 / -1240 -700 / -700 Weight 233 lb 12.8 oz 224 lb 3.2 oz 223 lb 14.4 oz - General physical appearance well developed, well nourished, no distress, severe distress - Eyes PERRL, normal ocular movement - ENT normal pinna, normal nares, normal mucosa, no hearing loss, no congestion - Neck no masses, no bruits, trachea midline, no lymphadectomy, no venous distension - Respiratory normal expansion, normal respiratory effort, clear to percussion, clear to auscultation - Cardiovascular Cardiovascular exam: Present: normal rate and rhythm, RRR, +S1, +S2. Absent: JVD - Abdomen soft, tender (Mild tenderness across upper abdomen with good active bowel sounds ) - Integumentary no rash, no growths, no abnormal pigmentation - Neurologic normal coordination, normal sensation - Musculoskeletal normal gait, normal posture - Psychiatric oriented to time, oriented to person, oriented to place, speech is normal, memory intact - Labs 12/29/17 05:08 12/29/17 05:08 Diabetes panel 12/29/17 Range/Units 05:08 Sodium 139 (133-145) mmol/L Potassium 4.0 (3.3-5.1) mmol/L Chloride 95 L (96-108) mmol/L Carbon Dioxide 31 H (22-30) mmol/L BUN 8 (6-20) mg/dl Creatinine 0.7 (0.6-1.1) mg/dl Glucose 139 H (70-105) mg/dL Calcium 9.0 (8.6-10.4) mg/dl AST 43 H (0-37) U/l ALT 48 H (0-40) U/l Alkaline Phosphatase 85 (39-117) U/L Total Protein 5.4 L (5.9-8.4) gm/dL Albumin 3.2 (3.2-5.2) gm/dL Triglycerides 134 (<150) mg/dl Calcium panel 12/29/17 Range/Units 05:08 Calcium 9.0 (8.6-10.4) mg/dl Phosphorus 5.2 H (2.7-4.5) mg/dL Albumin 3.2 (3.2-5.2) gm/dL Pituitary panel 12/29/17 Range/Units 05:08 Sodium 139 (133-145) mmol/L Potassium 4.0 (3.3-5.1) mmol/L Chloride 95 L (96-108) mmol/L Carbon Dioxide 31 H (22-30) mmol/L BUN 8 (6-20) mg/dl Creatinine 0.7 (0.6-1.1) mg/dl Glucose 139 H (70-105) mg/dL Calcium 9.0 (8.6-10.4) mg/dl Adrenal panel 12/29/17 Range/Units 05:08 Sodium 139 (133-145) mmol/L Potassium 4.0 (3.3-5.1) mmol/L Chloride 95 L (96-108) mmol/L Carbon Dioxide 31 H (22-30) mmol/L BUN 8 (6-20) mg/dl Creatinine 0.7 (0.6-1.1) mg/dl Glucose 139 H (70-105) mg/dL Calcium 9.0 (8.6-10.4) mg/dl Total Bilirubin 0.4 (0.0-1.0) mg/dL AST 43 H (0-37) U/l ALT 48 H (0-40) U/l Alkaline Phosphatase 85 (39-117) U/L Total Protein 5.4 L (5.9-8.4) gm/dL Albumin 3.2 (3.2-5.2) gm/dL Assessment and Plan (1) Chronic intestinal pseudo-obstruction Status: Acute Assessment and plan: MiraLAX 17 g p.o. every 4 hours for minimum of 4 glasses per advance to soft diet Repeat abdominal x-rays in the morning Current Visit: Yes (2) Hypocalcemia Status: Acute Assessment and plan: Continue home medication Current Visit: No (3) Myasthenia gravis Status: Acute Current Visit: No (4) Hypothyroidism Status: Acute Assessment and plan: Continue home medication Current Visit: No (5) Constipation due to pain medication therapy Status: Resolved Assessment and plan: Continue with final doses of Relistor Current Visit: No (6) Hypertension Status: Chronic Current Visit: No - Time Spent With Patient Total time spent is greater than 50% in coordination of care (as documented) at patient's floor/unit and/or counseling patient:
[2017-12-29] MEDS ORDERED: MAGNESIUM SULFATE 32.48 MEQ in DEXTROSE 5% IN WATER 100 ML IV ONE ×2 (13:00→15:00)
[2017-12-30] MEDS: ACETAMINOPHEN 1,000 MG/100 ML BOTTLE IV PRN ×2 (03:51→10:29)
[2017-12-30] MEDS: HYDROmorphone 2 MG/ML VIAL IV PRN ×3 (04:24→11:44)
[2017-12-30 05:02] LABS: Basophils # (Auto) 0 K/mcL (0.0-0.3); Basophils % (Auto) 0.3 % (0.0-2.0); Eosinophils # (Auto) 0.3 K/mcL (0.0-0.7); Eosinophils % (Auto) 3.9 % (0.0-7.0); Granulocytes % (Auto) 51.3 % (38.0-78.0); Lymphocytes # (Auto) 2.2 K/mcL (1.5-4.8); Lymphocytes % (Auto) 33.7 % (15.5-49.0); Mean Cell Volume 87.8 fL (80.0-100.0); Mean Corpuscular HGB Conc 32.5 g/dL (31.0-36.0); Mean Corpuscular Hemoglobin 28.6 pg (26.0-34.0); Monocytes # (Auto) 0.7 K/mcL (0.1-0.9); Monocytes % (Auto) 10.8 % (1.0-12.0); Platelet Count 289 K/mcL (140-440); RBC 3.77 M/mcL (4.00-5.20); Red Cell Distribution Width 15.5 % (11.5-14.5)
[2017-12-30 05:38] LABS: ALT/SGPT 39 U/l (0-40); Albumin 2.9 gm/dL (3.2-5.2); Albumin/Globulin Ratio 1.2 (1.0-2.3); Alkaline Phosphatase 85 U/L (39-117); Bilirubin,Direct < 0.2 mg/dL (0.0-0.3); Blood Urea Nitrogen 11 mg/dl (6-20); Gamma Glutamyl Transpeptidase 18 U/L (5-36); Uric Acid 5.6 mg/dL (2.5-8.0)
[2017-12-30] MEDS: POLYETHYLENE GLYCOL 3350 17 GM PACKET PO SCH ×3 (05:39→13:15)
[2017-12-30] MEDS: LEVOTHYROXINE 125 MCG TABLET PO SCH (07:00)
[2017-12-30] MEDS: PANTOPRAZOLE 40 MG VIAL IV SCH (07:11)
[2017-12-30] MEDS: ERYTHROMYCIN BASE 250 MG CAPSULE PO SCH ×2 (08:49→13:15)
[2017-12-30] MEDS: CALCIUM CARBONATE 1,250 MG/5 ML ORAL.SUSP PO SCH (08:49)
[2017-12-30] MEDS: LISINOPRIL 20 MG TABLET PO SCH (08:49)
[2017-12-30] MEDS: DULoxetine 30 MG CAPSULE PO SCH (08:50)
[2017-12-30] MEDS: CALCITRIOL 0.25 MCG CAPSULE PO SCH ×2 (08:50→15:07)
[2017-12-30] MEDS: predniSONE 20 MG TABLET PO SCH (08:50)
[2017-12-30] MEDS: Linaclotide [Linzess] 72 MCG Capsule PO SCH (08:51)
--- NOTE | 2017-12-30 13:59 | Operative Note ---
DATE OF OPERATION: 12/25/2017 PREOPERATIVE DIAGNOSIS: Chronic intestinal obstruction. POSTOPERATIVE DIAGNOSIS: Chronic intestinal obstruction. PROCEDURE: Left subclavian Port-A-Cath insertion. SURGEON: Bertha Currie M.D. DESCRIPTION: Under general anesthesia, the left chest and neck were prepped and draped in a sterile field. The patient was identified as per protocol. The left subclavian vein was accessed using Seldinger technique. Guidewire was placed. Guidewire position was confirmed by fluoroscopy. A port site was chosen along the lateral sternal border on the left side. Catheter was tunneled from the port site up to the guidewire. The introducer was placed over the guidewire, and the catheter was positioned in the superior vena cava under fluoroscopic guidance. The catheter was then attached to the chamber and the oversleeve was placed. The chamber was secured to the fascia using 2-0 Prolene. Subcutaneous tissue was closed with 2-0 Monocryl. Skin was closed with 4-0 Vicryl. The chamber was flushed and was then accessed with a Ojeda needle and was left accessed. It was covered with two medium-sized Tegaderms. The patient tolerated the procedure well. She was allowed to awaken and was transferred to the postanesthetic care unit in stable, satisfactory condition. LCS:naldo Job ID: [id number] Doc ID: [id number] Bertha Currie M.D.
--- NOTE | 2017-12-30 14:34 | Discharge Summary ---
Providers - Providers Patient information: Note initiated : 12/30/17 at 2:25 pm Service Date, if different from initiated Date: [] Patient: Dayanna Stephens 57 y/o F admitted on 12/21/17 for Abdominal Pain/ Small Bowel Obstruction. Chief Complaint: [] Date of admission: 12/22/17 Discharge date: 12/30/17 Attending physician: Bertha Currie Hospitalization Hospital course: 57-year-old female with a known history of chronic intestinal pseudoobstruction involving small bowel and colon as well as recurrent mechanical obstruction due to adhesions. She underwent adhesio lysis in mid November where she was found to have adhesions of the splenic flexure of the colon and the terminal ileum. Complete adhesio lysis of her bowel was done and she was discharged home in stable condition. After getting home she increased her pain medication. This led to worsening intestinal emptying and worsening constipation. She had a CT done on the day of admission and this showed the stool extending throughout her colon to her stoma and she had small bowel dilation extending to the proximal ileum with decompressed terminal ileum. She however did have some gas and liquid in the bowel extending to the cecum. It was felt that her major problem was partial obstruction compounded by narcotic induced constipation. She was started on Relistor and a small bowel follow-through was done. After she emptied her colon the small bowel follow-through showed contrast extending through to the colon. She had high volume output of stool and was started on MiraLAX and has been given continued on MiraLAX since the . There was a follow-up CT done which shows primary emptying of most of the bowel but dilated proximal small bowel. She was started on erythromycin 4 times daily. Her bowel increased but her diet could not be increased. The patient was having difficulty taking p.o. so Port-A-Cath was done because she did not have adequate venous access. After the she had steady improvement and I was able to advance her diet. She was never started on TPN. Presently she is on soft mechanical diet and over the last 24 hours she put out 2000 cc of stool. Patient is clinically stable at this time. Her abdomen is soft. She has good active bowel sounds. It is felt that she is stable enough to be discharged home and she will be continued on the MiraLAX erythromycin with occasional milk of magnesia to try to stimulate her intestinal activity. Discharge diagnosis: Total intestinal pseudoobstruction Secondary discharge diagnosis: Partial mechanical obstruction of small bowel due to adhesions Narcotic induced constipation Reason for admission: Small bowel and colonic obstruction Procedures: Port-A-Cath insertion for venous access Pertinent studies/significant findings: CT of abdomen and pelvis with contrast 2 Complications: None Exam Temp Pulse Resp BP Pulse Ox 97.9 F 102 H 18 140/84 96 12/30/17 11:58 12/30/17 11:58 12/30/17 11:58 12/30/17 11:58 12/30/17 11:58 - General physical appearance well developed, well nourished, no distress - Eyes PERRL, normal ocular movement - ENT normal pinna, normal nares, normal mucosa, no hearing loss, no congestion - Head Head exam IM: Present: atraumatic, normocephalic - Neck no masses, no bruits, trachea midline, no lymphadectomy, no venous distension - Cardiovascular Cardiovascular exam IM: Present: normal rate and rhythm - Respiratory normal expansion, normal respiratory effort, clear to percussion, clear to auscultation - Abdomen Abdomen: Present: soft, tender (Mild tenderness in mid abdomen and left lower quadrant; good active bowel sounds; functioning stoma left lower quadrant; healed midline incision), bowel sounds Hernia: Present: none - Genitourinary Present: normal external genitalia - Integumentary Present: no rash, no growths, no abnormal pigmentation - Neurologic Present: normal coordination, normal sensation - Musculoskeletal Present: normal gait, normal posture - Psychiatric Present: oriented to time, oriented to person, oriented to place, speech is normal, memory intact Discharge Plan - Patient/Caregiver Discharge Instructions Activity: increase activity as tolerated Diet: Regular Diet Additional Instructions: Take at least 4 glasses of MiraLAX per day Use promethazine as needed for nausea Use Tylenol with codeine as needed for arthritic pain Add milk of magnesia if the output through your stoma decreases in your abdomen starts to swell Obtain a stoma belt to help to secure your stoma to your abdominal wall Prescriptions: Erythromycin Base [Erythromycin] 250 mg PO QID #120 cap - Follow up Plan Follow up with: Douglas Haque MD [Primary Care Provider] - Disposition: Home, Self-Care Prognosis: Good Rehab Potential: Good I certify that the patient requires SNF services.: No Overall status at discharge: patient is back to baseline Pending Studies Resuscitation Status Full Code Diet GI Soft/Transitional Start SatDec 27 1352 Calcitriol (Rocaltrol) 0.5 mcg PO TID [facility] Last Admin: 12/30/17 08:50 Dose: 0.5 mcg Admin: 12/29/17 20:28 Dose: 0.5 mcg Admin: 12/29/17 15:26 Dose: 0.5 mcg Admin: 12/29/17 08:43 Dose: 0.5 mcg Admin: 12/28/17 21:12 Dose: 0.5 mcg Admin: 12/28/17 14:06 Dose: 0.5 mcg Admin: 12/28/17 09:56 Dose: 0.5 mcg Admin: 12/27/17 20:31 Dose: 0.5 mcg Admin: 12/27/17 14:50 Dose: 0.5 mcg Admin: 12/27/17 09:37 Dose: 0.5 mcg Admin: 12/26/17 21:30 Dose: 0.5 mcg Admin: 12/26/17 14:19 Dose: 0.5 mcg Admin: 12/26/17 08:19 Dose: 0.5 mcg Admin: 12/25/17 20:57 Dose: 0.5 mcg Admin: 12/25/17 14:44 Dose: 0.5 mcg Calcium Carbonate/Glycine (Calcium Carbonate) 1,200 mg PO BID [facility] Admin: 12/30/17 08:49 Dose: 1,200 mg Admin: 12/29/17 20:28 Dose: 1,200 mg Admin: 12/29/17 08:43 Dose: 1,200 mg Admin: 12/28/17 21:15 Dose: 1,200 mg Admin: 12/28/17 10:01 Dose: 1,200 mg Admin: 12/27/17 20:30 Dose: 1,200 mg Admin: 12/27/17 09:36 Dose: 1,200 mg Admin: 12/26/17 21:33 Dose: 1,200 mg Admin: 12/26/17 08:19 Dose: 1,200 mg Admin: 12/25/17 20:52 Dose: 1,200 mg Admin: 12/25/17 13:00 Dose: Not Given Duloxetine HCl (Cymbalta) 30 mg PO BID [facility] Admin: 12/30/17 08:50 Dose: 30 mg Admin: 12/29/17 20:28 Dose: 30 mg Admin: 12/29/17 08:43 Dose: 30 mg Admin: 12/28/17 21:11 Dose: 30 mg Admin: 12/28/17 09:56 Dose: 30 mg Admin: 12/27/17 20:30 Dose: 30 mg Admin: 12/27/17 09:38 Dose: 30 mg Admin: 12/26/17 21:29 Dose: 30 mg Admin: 12/26/17 08:19 Dose: 30 mg Admin: 12/25/17 20:57 Dose: 30 mg Admin: 12/25/17 13:00 Dose: Not Given Erythromycin (Erythromycin) 250 mg PO QID [facility] Last Admin: 12/30/17 13:15 Dose: 250 mg Admin: 12/30/17 08:49 Dose: 250 mg Admin: 12/29/17 20:28 Dose: 250 mg Admin: 12/29/17 17:02 Dose: 250 mg Admin: 12/29/17 13:18 Dose: 250 mg Admin: 12/29/17 08:44 Dose: 250 mg Admin: 12/28/17 21:15 Dose: 250 mg Admin: 12/28/17 17:36 Dose: 250 mg Admin: 12/28/17 14:06 Dose: 250 mg Admin: 12/28/17 10:01 Dose: 250 mg Admin: 12/27/17 20:30 Dose: 250 mg Admin: 12/27/17 17:04 Dose: 250 mg Admin: 12/27/17 15:12 Dose: 250 mg Admin: 12/27/17 09:38 Dose: 250 mg Admin: 12/26/17 21:29 Dose: 250 mg Admin: 12/26/17 17:23 Dose: 250 mg Admin: 12/26/17 13:04 Dose: 250 mg Admin: 12/26/17 08:18 Dose: 250 mg Admin: 12/25/17 20:52 Dose: 250 mg Admin: 12/25/17 17:43 Dose: 250 mg Admin: 12/25/17 12:16 Dose: 250 mg Heparin Sodium (Porcine) (Heparin Flush) 5 ml IV Q12 [facility] Last Admin: 12/30/17 08:50 Dose: 5 ml Admin: 12/29/17 21:25 Dose: 5 ml Admin: 12/29/17 07:12 Dose: 5 ml Admin: 12/28/17 21:16 Dose: 5 ml Admin: 12/28/17 09:56 Dose: 5 ml Hydromorphone HCl (Dilaudid) 1 mg IV Q2HP PRN PRN Reason: PAIN LEVEL > 6 Last Admin: 12/30/17 11:44 Dose: 1 mg Admin: 12/30/17 07:00 Dose: 1 mg Admin: 12/30/17 04:24 Dose: 1 mg Admin: 12/29/17 21:24 Dose: 1 mg Admin: 12/29/17 18:04 Dose: 1 mg Admin: 12/29/17 15:19 Dose: 1 mg Admin: 12/29/17 12:10 Dose: 1 mg Admin: 12/29/17 07:11 Dose: 1 mg Admin: 12/29/17 03:59 Dose: 1 mg Admin: 12/28/17 19:43 Dose: 1 mg Admin: 12/28/17 14:32 Dose: 1 mg Admin: 12/28/17 05:42 Dose: 1 mg Admin: 12/28/17 03:38 Dose: 1 mg Admin: 12/28/17 01:06 Dose: 1 mg Admin: 12/27/17 22:42 Dose: 1 mg Admin: 12/27/17 19:26 Dose: 1 mg Admin: 12/27/17 17:05 Dose: 1 mg Admin: 12/27/17 14:18 Dose: 1 mg Admin: 12/27/17 09:37 Dose: 1 mg Admin: 12/27/17 07:28 Dose: 1 mg Admin: 12/27/17 05:06 Dose: 1 mg Admin: 12/27/17 01:56 Dose: 1 mg Admin: 12/26/17 22:45 Dose: 1 mg Admin: 12/26/17 19:43 Dose: 1 mg Admin: 12/26/17 17:23 Dose: 1 mg Admin: 12/26/17 14:19 Dose: 1 mg Admin: 12/26/17 12:01 Dose: 1 mg Admin: 12/26/17 09:41 Dose: 1 mg Admin: 12/26/17 07:31 Dose: 1 mg Admin: 12/26/17 04:31 Dose: 1 mg Admin: 12/26/17 02:08 Dose: 1 mg Admin: 12/26/17 00:01 Dose: 1 mg Admin: 12/25/17 20:52 Dose: 1 mg Admin: 12/25/17 17:43 Dose: 1 mg Admin: 12/25/17 15:00 Dose: 1 mg Admin: 12/25/17 11:46 Dose: 1 mg Acetaminophen (Ofirmev) 1,000 mg in 100 mls @ 200 mls/hr IV Q6HP PRN PRN Reason: Pain Last Infusion: 12/30/17 10:59 Dose: 0 mls/hr Admin: 12/30/17 10:29 Dose: 200 mls/hr Infusion: 12/30/17 04:21 Dose: 0 mls/hr Admin: 12/30/17 03:51 Dose: 200 mls/hr Infusion: 12/29/17 20:59 Dose: 200 mls/hr Admin: 12/29/17 20:29 Dose: 200 mls/hr Infusion: 12/29/17 03:41 Dose: 200 mls/hr Admin: 12/29/17 03:11 Dose: 200 mls/hr Infusion: 12/25/17 22:12 Dose: 0 mls/hr Admin: 12/25/17 21:42 Dose: 200 mls/hr Infusion: 12/25/17 16:05 Dose: 0 mls/hr Admin: 12/25/17 15:35 Dose: 200 mls/hr Levothyroxine Sodium (Synthroid) 250 mcg PO QAMAC [facility] Last Admin: 12/30/17 07:00 Dose: 250 mcg Admin: 12/29/17 07:11 Dose: 250 mcg Admin: 12/28/17 07:57 Dose: 250 mcg Admin: 12/27/17 07:28 Dose: 250 mcg Admin: 12/26/17 07:30 Dose: 250 mcg Lisinopril (Zestril) 20 mg PO BID [facility] Last Admin: 12/30/17 08:49 Dose: 20 mg Admin: 12/29/17 20:29 Dose: 20 mg Admin: 12/29/17 08:43 Dose: 20 mg Admin: 12/28/17 21:13 Dose: 20 mg Admin: 12/28/17 09:56 Dose: 20 mg Admin: 12/27/17 20:32 Dose: 20 mg Admin: 12/27/17 09:38 Dose: 20 mg Admin: 12/26/17 21:30 Dose: 20 mg Admin: 12/26/17 08:19 Dose: 20 mg Admin: 12/25/17 20:57 Dose: 20 mg Admin: 12/25/17 13:01 Dose: Not Given Lorazepam (Ativan) 1 mg IV Q6HP PRN PRN Reason: ANXIETY/SEDATION Last Admin: 12/28/17 21:11 Dose: 1 mg Admin: 12/28/17 08:12 Dose: 1 mg Ondansetron HCl (Zofran) 4 mg IV Q4HP PRN PRN Reason: Nausea And Vomiting Last Admin: 12/28/17 19:50 Dose: 4 mg Admin: 12/28/17 01:14 Dose: 4 mg Admin: 12/27/17 21:22 Dose: 4 mg Admin: 12/27/17 03:39 Dose: 4 mg Admin: 12/25/17 20:51 Dose: 4 mg Pantoprazole Sodium (Protonix) 40 mg IV BIDAC [facility] Last Admin: 12/30/17 07:11 Dose: 40 mg Admin: 12/29/17 17:02 Dose: 40 mg Admin: 12/29/17 07:11 Dose: 40 mg Admin: 12/28/17 17:15 Dose: 40 mg Admin: 12/28/17 07:57 Dose: 40 mg Admin: 12/27/17 17:04 Dose: 40 mg Admin: 12/27/17 07:28 Dose: 40 mg Admin: 12/26/17 17:22 Dose: 40 mg Admin: 12/26/17 07:30 Dose: 40 mg Admin: 12/25/17 17:42 Dose: 40 mg Linaclotide [Linzess (] 72 Mcg Capsule) 1 dose PO DAILY [facility] Last Admin: 12/30/17 08:51 Dose: Not Given Admin: 12/29/17 08:44 Dose: Not Given Admin: 12/28/17 10:02 Dose: Not Given Admin: 12/27/17 09:38 Dose: Not Given Admin: 12/26/17 08:18 Dose: 1 dose Admin: 12/25/17 13:01 Dose: Not Given Polyethylene Glycol (Miralax) 17 gm PO Q4HWA [facility] Last Admin: 12/30/17 13:15 Dose: 17 gm Admin: 12/30/17 08:49 Dose: 17 gm Admin: 12/30/17 05:39 Dose: Not Given Admin: 12/29/17 20:28 Dose: 17 gm Admin: 12/29/17 17:02 Dose: 17 gm Admin: 12/29/17 12:11 Dose: 17 gm Admin: 12/29/17 08:43 Dose: 17 gm Admin: 12/29/17 05:35 Dose: Not Given Admin: 12/28/17 21:12 Dose: 17 gm Admin: 12/28/17 17:36 Dose: 17 gm Admin: 12/28/17 14:06 Dose: 17 gm Admin: 12/28/17 09:56 Dose: 17 gm Admin: 12/28/17 05:41 Dose: 17 gm Admin: 12/27/17 20:31 Dose: 17 gm Admin: 12/27/17 17:04 Dose: 17 gm Admin: 12/27/17 14:19 Dose: 17 gm Admin: 12/27/17 09:37 Dose: 17 gm Admin: 12/27/17 05:06 Dose: 17 gm Admin: 12/26/17 21:29 Dose: 17 gm Admin: 12/26/17 17:22 Dose: 17 gm Admin: 12/26/17 13:04 Dose: 17 gm Admin: 12/26/17 08:19 Dose: 17 gm Admin: 12/26/17 04:54 Dose: 17 gm Admin: 12/25/17 20:56 Dose: 17 gm Admin: 12/25/17 17:55 Dose: 17 gm Admin: 12/25/17 13:19 Dose: 17 gm Prednisone (Prednisone) 20 mg PO [facility] Admin: 12/30/17 08:50 Dose: 20 mg Admin: 12/29/17 08:43 Dose: 20 mg Admin: 12/28/17 07:57 Dose: 20 mg Admin: 12/27/17 07:28 Dose: 20 mg Admin: 12/26/17 07:33 Dose: 20 mg Shift Summary 12/30/17 05:16 Shift Summary by Katie London&Cj4. HR remains elevated. Up independently with FWW. Ambulated in hallway. Port-a-cath to left chest. Ostomy to LLQ; patient empties herself into measuring canister. Medicated with Ofirmev 1000mg x2 and Dilaudid 1mg IV x2 for pain. CPAP in place when sleeping. Will update at bedside. Initialized on 12/30/17 05:16 - END OF NOTE
[2017-12-30] MEDS ORDERED: HEPARIN SODIUM,PORCINE/PF 500 UNIT/5 ML SYRINGE IV ONE (14:54)
== END 2017-12-30 15:21 | disposition home or self-care (01) | DRG 391 ==
LOC: ED 04:55 → MEDSUR 09:35
PROVIDERS: ADMIT Family Medicine Adult Medicine; ATTEND Family Medicine Adult Medicine

== ENCOUNTER 2018-01-04 06:05 | Inpatient (IN) ==
[2018-01-04] MEDS ORDERED: IOPAMIDOL 100 ML BOTTLE IV ONE (06:06)
[2018-01-04] MEDS ORDERED: PROMETHAZINE 25 MG/ML VIAL IV ONE (06:31)
--- NOTE | 2018-01-04 06:40 | Emergency Department Note ---
Abdominal Pain HPI - General Source: patient Mode of arrival: wheelchair Limitations: no limitations <Robb Goldberg - Last Filed: 01/04/18 19:33> <Sp Alfred - Last Filed: 01/05/18 08:45> - General Chief Complaint: Abdominal Pain Stated Complaint: abdominal pain Time Seen by Provider: 01/04/18 06:37 - History of Present Illness HPI Narrative: This pleasant 57-year-old female comes to the emergency room and is dropped off by her . She has a history of bowel obstructions. She had an ostomy placed on September 20 and has had 2 lysis of adhesions after that. It has been only a week and a half since her last discharge. She presents with emesis greater than 10 times and feeling dehydrated. She has not had any hematemesis. Her ostomy is passing a fair amount of fecal material. She has not had any fevers or chills but has felt clammy and sweaty. REVIEW OF SYSTEMS: No chest pains or palpitations except from the retching. Some headache in the back of her neck area due to the vomiting also. She denies dysuria. Has a history of chronic anxiety and depression for which she takes Cymbalta. No cough phlegm wheezing or shortness of breath. (Robb Goldberg) Received patient in checkout from Dr. Goldberg. Confirmed history above. Resting tachycardia typically around 100 but today is in the 120s and 30s (Sp Alfred) - Related Data Home Medications Medication Instructions Recorded Confirmed DULoxetine [Cymbalta] 30 mg PO BID 11/30/16 01/04/18 Linaclotide [Linzess] 72 mcg PO DAILY 11/30/16 01/04/18 Levothyroxine [Synthroid] 250 mcg PO QAMAC 08/20/17 01/04/18 Acetaminophen W/Codeine #3 2 cap PO Q4-6HP PRN 09/18/17 01/04/18 [Tylenol #3] Calcium Carbonate 1,200 mg PO BID 09/18/17 01/04/18 Naproxen (Pp) [Aleve (Pp)] 2 tab PO BID PRN 09/18/17 01/04/18 Polyethylene Glycol 3350 [Miralax] 17 gm PO BID 09/18/17 01/04/18 calcitriol 0.25 mcg capsule 0.5 mcg PO TID cap 11/05/17 01/04/18 nitroglycerin 0.4 mg sublingual 0.4 mg SUBLINGUAL Q5M PRN 11/05/17 01/04/18 tablet omeprazole 20 mg capsule,delayed 20 mg PO BID 11/05/17 01/04/18 release Previous Rx's Medication Instructions Recorded predniSONE [Prednisone] 20 mg PO [facility] #4 tab 05/18/16 Lisinopril [Zestril] 20 mg PO BID #60 tab 12/06/17 oxycodone-acetaminophen 10 mg-325 1 tab PO Q4HP PRN #60 tab 12/09/17 mg tablet Allergies Allergy/AdvReac Type Severity Reaction Status Date / Time Sulfa (Sulfonamide Allergy Severe Anaphylaxis Verified 12/21/17 05:00 Antibiotics) metoclopramide [From Reglan] AdvReac Intermediate Anxiety Verified 12/21/17 05: 00 steri strips Allergy Severe Blister Uncoded 12/18/17 13:20 Abdominal Pain PMH - Past Medical History Medical history: Reports: COPD, hypertension, hypothyroidism, other (Connective tissue diseases: Sjogren's, sarcoidosis, myasthenia gravis. Achalasia. Small bowel obstructions. 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 SVT.). Denies: cancer, CVA, DM, myocardial infarction Surgical history ED: Reports: cholecystectomy, other (Thymomectomy.) Psychiatric history: Reports: anxiety, depression [employer] history: Reports: non-contributory Family history: Reports: other (2 aunts with double mastectomy for cancer. Uncle with brain cancer. Mother with diabetes. Both parents of myocardial infarctions in their 50s.) - Social History Smoking status: Never smoker Alcohol use: Reports: None Drug use: Reports: none. Denies: marijuana <Burrup,Robb - Last Filed: 01/04/18 19:33> Physical Exam Limitations: no limitations General appearance: alert, in no apparent distress Head: atraumatic, normocephalic Eye: Present: normal appearance, PERRL, EOMI. Absent: scleral icterus, conjunctival injection ENT: normal oropharynx, mucous membranes dry (mildly) Neck: Present: trachea midline. Absent: lymphadenopathy, thyromegaly Respiratory: Present: normal lung sounds bilaterally. Absent: respiratory distress, wheezes, stridor, accessory muscle use, prolonged expiratory phase Cardiovascular: Present: regular rate, tachycardia. Absent: systolic murmur, diastolic murmur Abdominal: Present: soft, tenderness (mild RUQ.). Absent: distention, guarding , rebound, rigidity, organomegaly, mass Extremities: Absent: pedal edema, pretibial edema, calf tenderness Back: Present: CVA tenderness (R). Absent: CVA tenderness (L), spinous process tenderness Neurological: Present: alert, oriented X3 Psychiatric: Present: normal affect, normal mood Skin: Present: other (Cool and mildly moist.) <Robb Goldberg - Last Filed: 01/04/18 19:33> Vital Signs Temperature 97.4 F 01/04/18 06:06 Pulse Rate 133 H 01/04/18 06:06 Respiratory Rate 23 H 01/04/18 06:06 Blood Pressure 137/75 01/04/18 06:06 Pulse Oximetry (%) 99 01/04/18 06:06 Temperature 98.3 F 01/05/18 06:25 Pulse Rate 114 H 01/05/18 04:00 Respiratory Rate 16 01/05/18 06:25 Blood Pressure 111/77 01/05/18 06:25 Pulse Oximetry (%) 98 01/05/18 07:56 Abdominal Pain - Lab Data Result diagrams: 01/04/18 06:38 01/04/18 06:38 <Robb Goldberg - Last Filed: 01/04/18 19:33> - Lab Data Lab results reviewed: Yes I reviewed the patient's lab results. Result diagrams: 01/05/18 04:00 01/05/18 04:00 - Radiology Data Radiology results reviewed: Yes I reviewed the patient's radiology results. <Sp Alfred - Last Filed: 01/05/18 08:45> - [facility] Narrative Medical decision making narrative: 6:26 AM Tachycardic, history of bowel obstructions although does not seem to be obstructed with ostomy output, so likely dehydrated. Will do labs in two-view abdomen. 8:25 AM Labs and two view abdomen fairly unremarkable. Remains dry with some improvement. 2nd liter fluids ordered. will transfer care to Dr. Alfred coming on shift. (Robb Goldberg) - Lab Data Lab Results 01/04/18 01/04/18 01/04/18 Range/Units 06:38 06:38 09:48 WBC 12.4 H (4.5-11.0) K/mcL RBC 4.94 (4.00-5.20) M/mcL Hgb 13.7 (12.0-15.0) g/dL Hct 42.7 (36.0-48.0) % MCV 86.5 (80.0-100.0) fL MCH 27.8 (26.0-34.0) pg MCHC 32.2 (31.0-36.0) g/dL RDW 15.2 H (11.5-14.5) % Plt Count 375 (140-440) K/mcL MPV 7.9 (7.4-10.4) fL Gran % 66.6 (38.0-78.0) % Lymph % (Auto) 22.6 (15.5-49.0) % Dent % (Auto) 7.3 (1.0-12.0) % Eos % (Auto) 3.1 (0.0-7.0) % Baso % (Auto) 0.4 (0.0-2.0) % Gran # 8.2 H (1.8-8.0) K/mcL Lymph # (Auto) 2.8 (1.5-4.8) K/mcL Dent # (Auto) 0.9 (0.1-0.9) K/mcL Eos # (Auto) 0.4 (0.0-0.7) K/mcL Baso # (Auto) 0.1 (0.0-0.3) K/mcL VBG Lactic Acid 1.1 (0.5-2.2) mmol/L Sodium 139 (133-145) mmol/L Potassium 3.8 (3.3-5.1) mmol/L Chloride 96 (96-108) mmol/L Carbon Dioxide 24 (22-30) mmol/L Anion Gap 19.0 H (8-16) BUN 14 (6-20) mg/dl Creatinine 0.7 (0.6-1.1) mg/dl GFR Calculation 97 Glucose 183 H (70-105) mg/dL Calcium 9.0 (8.6-10.4) mg/dl Total Bilirubin 0.3 (0.0-1.0) mg/dL AST 19 (0-37) U/l ALT 25 (0-40) U/l Alkaline Phosphatase 95 (39-117) U/L C-Reactive Protein < 0.3 (0.0-0.8) mg/dl Total Protein 6.7 (5.9-8.4) gm/dL Albumin 3.6 (3.2-5.2) gm/dL Globulin 3.1 (2.2-3.7) gm/dL Albumin/Globulin Ratio 1.2 (1.0-2.3) Lipase 10 (7-60) U/L - Radiology Data X-ray of the abdomen shows improved bowel function. CT scan angiogram of the chest ordered for tachycardia with history of elevated d-dimer (Sp Alfred) Disposition <Robb Goldberg - Last Filed: 01/04/18 19:33> Pt seen by [facility]/PA only: No <Sp Alfred - Last Filed: 01/05/18 08:45> Clinical Impression: Small bowel obstruction, partial, Nausea & vomiting Summary: After reviewing her laboratory and imaging, I still could not account for her tachycardia so CT scan of the chest was done to rule out PE. No PE is seen but multiple loops of fluid-filled small bowels seen on CT despite improved abdominal x-ray. Despite treatment she still remained with relatively intractable nausea and vomiting. Consulted with Dr. Currie who agreed to accept patient for inpatient treatment and further evaluation of possible small bowel obstruction with intractable nausea and vomiting. Holding orders were written (Sp Alfred) Disposition: Xfer As Inpt ([facility]) Condition: Fair
[2018-01-04] MEDS: HYDROmorphone 2 MG/ML VIAL IV PRN ×5 (06:45→21:42)
[2018-01-04 07:40] LABS: Basophils # (Auto) 0.1 K/mcL (0.0-0.3); Basophils % (Auto) 0.4 % (0.0-2.0); Eosinophils # (Auto) 0.4 K/mcL (0.0-0.7); Eosinophils % (Auto) 3.1 % (0.0-7.0); Granulocytes % (Auto) 66.6 % (38.0-78.0); Lymphocytes # (Auto) 2.8 K/mcL (1.5-4.8); Lymphocytes % (Auto) 22.6 % (15.5-49.0); Mean Cell Volume 86.5 fL (80.0-100.0); Mean Corpuscular HGB Conc 32.2 g/dL (31.0-36.0); Mean Corpuscular Hemoglobin 27.8 pg (26.0-34.0); Monocytes # (Auto) 0.9 K/mcL (0.1-0.9); Monocytes % (Auto) 7.3 % (1.0-12.0); Platelet Count 375 K/mcL (140-440); RBC 4.94 M/mcL (4.00-5.20); Red Cell Distribution Width 15.2 % (11.5-14.5)
[2018-01-04 07:55] LABS: ALT/SGPT 25 U/l (0-40); Albumin 3.6 gm/dL (3.2-5.2); Albumin/Globulin Ratio 1.2 (1.0-2.3); Alkaline Phosphatase 95 U/L (39-117); Blood Urea Nitrogen 14 mg/dl (6-20); C-Reactive Protein < 0.3 mg/dl (0.0-0.8); Lipase 10 U/L (7-60)
--- NOTE | 2018-01-04 08:01 | XRay Report ---
CLINICAL INFORMATION: Recurrent bowel obstruction. Abdominal pain TECHNIQUE: AP supine and upright abdomen COMPARISON: Multiple previous plain film examinations and CT scans. Most recent plain film examinations are dated 12/28/2017, 12/26/2017, 12/25/2017. Most recent CT scan is dated 12/24/2017 FINDINGS: There is colonic gas in the left upper quadrant consistent with transverse colon and splenic flexure gas. There is small bowel gas but no significant dilatation at this time. There are scattered air-fluid levels. Radiographic appearance is improved since 12/28/2017. The right hemidiaphragm is not well visualized on upright view. Subtle pneumoperitoneum could be missed and if this is of clinical concern repeat upright study is appropriate. There is no pneumatosis. No biliary or portal venous gas. There are surgical clips in the right upper quadrant consistent with previous cholecystectomy IMPRESSION: Improved bowel gas pattern since 12/28/2017 Interpreted and Authenticated by: All Cormier 01/04/18
[2018-01-04] MEDS ORDERED: 0.9 % SODIUM CHLORIDE 1,000 ML IV ONE (10:09)
--- NOTE | 2018-01-04 10:55 | Cat Scan Report ---
CLINICAL INFORMATION: Tachycardia. Elevated d-dimer COMPARISON: Previous chest x-ray dated 12/25/2017. Previous chest CTA dated 08/19/2017 TECHNIQUE: Axial images obtained through the chest. 40 mL intravenous contrast was administered, and scanning was performed during pulmonary arterial phase. Sagittally and coronally reformatted images were obtained. MIP reformatted images. FINDINGS: Lungs are low volume. No focal parenchymal consolidation. No discrete mass. There is a densely calcified right upper lobe granuloma. Main pulmonary artery, right pulmonary artery, left pulmonary artery are negative. No lobar, segmental, or subsegmental filling defects. Negative examination for pulmonary embolism. No pleural fluid. No pericardial fluid. No pathologic hilar or mediastinal lymphadenopathy. Patient has undergone previous median sternotomy. There is coronary artery calcification. There is a left-sided infusion port. No axillary or supraclavicular adenopathy Thoracic spine and ribs are negative. No fracture. No lytic lesion. There is elevation of the right hemidiaphragm. Probable fatty infiltration of the liver. There are multiple dilated fluid-filled loops of bowel. This patient has a history of chronic and recurrent small bowel obstruction. IMPRESSION: 1. Negative pulmonary CTA. Negative examination for pulmonary embolism 2. No acute pulmonary parenchymal mass or infiltrate. The exam was performed using radiation dose optimization techniques including, but not limited to, automated exposure control, adjustment of the mA and/or kV according to patient size and use of iterative reconstruction technique. Interpreted and Authenticated by: All Cormier 01/04/18
[2018-01-04] MEDS ORDERED: ONDANSETRON 4 MG/2 ML VIAL IV ONE ×2 (11:04→12:45)
--- NOTE | 2018-01-04 14:57 | General Surg History&Physical ---
History of Present Illness Patient information: Note initiated : 01/04/18 at 2:56 pm Service Date, if different from initiated Date: [] Patient: Dayanna Stephens a 57 y/o F admitted on for abdominal pain. Chief Complaint: [] HPI: Ms. Stephens is a 57 year old F who is admitted for evaluation of possible recurrent obstruction of her small bowel. She was recently admitted with similar symptoms but was found to have severe constipation associated with chronic intestinal pseudoobstruction and narcotic use. She presents with a history of having emesis multiple times with abdominal bloating however she states that she is passing large volume of stool through her stoma. CT of the abdomen and pelvis shows multiple loops of fluid-filled small bowel. After treatment of her nausea and vomiting in the emergency room he continued so the patient is admitted for further treatment and evaluation. Review of Systems - Constitutional fatigue, headache(s), malaise, weakness - EENT Nose, mouth and throat: dizziness, headache(s) - Cardiovascular dyspnea on exertion, palpatations, rapid heart rate - Respiratory dyspnea on exertion - Gastrointestinal abdominal pain, bloating, change in bowel habits, change in stool character, constipation, nausea, vomiting - Genitourinary Genitourinary: difficulty urinating, urinary frequency, urinary incontinence - Musculoskeletal arthralgias, joint swelling, muscle weakness, myalgias, stiffness - Integumentary no bleeding lesions, no changing lesions, no pruritus, no rash - Neurological headache(s), no confusion, no convulsions, no frequent falls - Psychiatric depression - Endocrine fatigue, heat intolerance, palpitations - Hematologic/Lymphatic no easy bleeding, no easy bruising, no lymphadenopathy - Allergic/Immunologic no tongue swelling, no throat swelling, no uticaria, no wheezing, no lip swelling Past History Past medical history: chronic obstructive lung disease Sarcoidosis Myasthenia gravis History of achalasia Osteoarthritis Hypothyroidism Chronic intestinal pseudoobstruction Sjgren syndrome Past surgical history: cholecystectomy Left knee meniscectomy Thymectomy Heller myotomy with toupee fundoplication Umbilical hernia repair Sigmoid colectomy with colostomy Exploratory laparotomy with adhesiolysis twice Past family history: coronary artery disease Past social history: former smoker Social drinker Narrative Denies drug use Medications and Allergies Home Medications Medication Instructions Recorded Confirmed Type predniSONE [Prednisone] 20 mg PO [facility] #4 tab 05/18/16 01/04/18 Rx DULoxetine [Cymbalta] 30 mg PO BID 11/30/16 01/04/18 History Linaclotide [Linzess] 72 mcg PO DAILY 11/30/16 01/04/18 History Levothyroxine [Synthroid] 250 mcg PO QAMAC 08/20/17 01/04/18 History Acetaminophen W/Codeine #3 2 cap PO Q4-6HP PRN 09/18/17 01/04/18 History [Tylenol #3] Calcium Carbonate 1,200 mg PO BID 09/18/17 01/04/18 History Naproxen (Pp) [Aleve (Pp)] 2 tab PO BID PRN 09/18/17 01/04/18 History Polyethylene Glycol 3350 [Miralax] 17 gm PO BID 09/18/17 01/04/18 History calcitriol 0.25 mcg capsule 0.5 mcg PO TID cap 11/05/17 01/04/18 History nitroglycerin 0.4 mg sublingual 0.4 mg SUBLINGUAL Q5M PRN 11/05/17 01/04/18 History tablet omeprazole 20 mg capsule,delayed 20 mg PO BID 11/05/17 01/04/18 History release Lisinopril [Zestril] 20 mg PO BID #60 tab 12/06/17 01/04/18 Rx oxycodone-acetaminophen 10 mg-325 1 tab PO Q4HP PRN #60 tab 12/09/17 01/04/18 Rx mg tablet Promethazine [Phenergan] 25 mg OR Q4HP PRN #30 supp.rect 01/08/18 Rx Allergies Allergy/AdvReac Type Severity Reaction Status Date / Time Sulfa (Sulfonamide Allergy Severe Anaphylaxis Verified 12/21/17 05:00 Antibiotics) metoclopramide [From Reglan] AdvReac Intermediate Anxiety Verified 12/21/17 05: 00 steri strips Allergy Severe Blister Uncoded 12/18/17 13:20 Exam Temp Pulse Resp BP Pulse Ox 97.4 F 115 H 16 119/85 95 01/04/18 06:06 01/04/18 14:12 01/04/18 10:23 01/04/18 14:02 01/04/18 14:12 - General physical appearance well developed, well nourished, no distress - Eyes PERRL, normal ocular movement - ENT normal pinna, normal nares, normal mucosa, no hearing loss, no congestion - Head Head exam IM: Present: atraumatic, normocephalic - Neck no masses, no bruits, trachea midline, no lymphadectomy, no venous distension - Cardiovascular Cardiovascular exam IM: Present: normal rate and rhythm, +S1, +S2, tachycardia. Absent: JVD - Respiratory normal expansion, normal respiratory effort, clear to percussion, clear to auscultation - Abdomen Abdomen: Present: soft, tender (mildly tender in mid abdomen with mild distention; good active bowel sounds; well-healed incision; functioning stoma left lower quadrant), bowel sounds Hernia: Present: none - Genitourinary Present: normal external genitalia - Integumentary Present: no rash, no growths, no abnormal pigmentation - Neurologic Present: normal coordination, normal sensation - Musculoskeletal Present: normal gait, normal posture - Psychiatric Present: oriented to time, oriented to person, oriented to place, speech is normal, memory intact Assessment and Plan (1) Nausea & vomiting Status: Acute Qualifiers: Vomiting type: unspecified Vomiting Intractability: intractable Qualified Code(s): R11.2 - Nausea with vomiting, unspecified (2) Small bowel obstruction, partial Status: Acute (3) Chronic intestinal pseudo-obstruction Status: Acute (4) Supraventricular tachycardia Status: Acute
[2018-01-04] MEDS: 0.9 % SODIUM CHLORIDE 1,000 ML IV SCH (15:44)
[2018-01-04] MEDS: PROMETHAZINE 25 MG/ML VIAL IM PRN ×2 (15:58→21:50)
[2018-01-04] MEDS: PANTOPRAZOLE 40 MG VIAL IV SCH (17:36)
[2018-01-04] MEDS: ONDANSETRON 4 MG/2 ML VIAL IV PRN (17:46)
[2018-01-04] MEDS: methylPREDNISolone SOD SUCC 125 MG/2 ML VIAL IV SCH (21:43)
[2018-01-04] MEDS ORDERED: PROMETHAZINE 25 MG/ML VIAL IV PRN (22:00)
[2018-01-05] MEDS: HYDROmorphone 2 MG/ML VIAL IV PRN ×4 (00:54→21:00)
[2018-01-05] MEDS: ONDANSETRON 4 MG/2 ML VIAL IV PRN (00:54)
[2018-01-05] MEDS: 0.9 % SODIUM CHLORIDE 1,000 ML IV SCH ×3 (01:05→21:07)
[2018-01-05] MEDS: LORazepam 2 MG/ML VIAL IV PRN ×2 (01:25→18:38)
[2018-01-05 06:01] LABS: Basophils # (Auto) 0 K/mcL (0.0-0.3); Basophils % (Auto) 0 % (0.0-2.0); Eosinophils # (Auto) 0.3 K/mcL (0.0-0.7); Eosinophils % (Auto) 3.1 % (0.0-7.0); Granulocytes % (Auto) 88.2 % (38.0-78.0); Lymphocytes # (Auto) 0.8 K/mcL (1.5-4.8); Mean Cell Volume 86.4 fL (80.0-100.0); Mean Corpuscular HGB Conc 32.9 g/dL (31.0-36.0); Mean Corpuscular Hemoglobin 28.4 pg (26.0-34.0); Monocytes # (Auto) 0.1 K/mcL (0.1-0.9); Monocytes % (Auto) 0.7 % (1.0-12.0); Platelet Count 298 K/mcL (140-440); RBC 4.21 M/mcL (4.00-5.20); Red Cell Distribution Width 15.1 % (11.5-14.5)
[2018-01-05 06:31] LABS: ALT/SGPT 25 U/l (0-40); Albumin 2.9 gm/dL (3.2-5.2); Alkaline Phosphatase 86 U/L (39-117); Bilirubin,Direct < 0.2 mg/dL (0.0-0.3); Blood Urea Nitrogen 17 mg/dl (6-20); Gamma Glutamyl Transpeptidase 17 U/L (5-36); Uric Acid 5.6 mg/dL (2.5-8.0)
[2018-01-05] MEDS: LEVOTHYROXINE 125 MCG TABLET PO SCH (06:59)
[2018-01-05] MEDS: PANTOPRAZOLE 40 MG VIAL IV SCH ×2 (06:59→17:37)
[2018-01-05] MEDS ORDERED: CALCIUM GLUCONATE 4.65 MEQ/10 ML VIAL IV SCH (09:00)
[2018-01-05] MEDS ORDERED: CALCIUM GLUCONATE 9.3 MEQ in DEXTROSE 5% IN WATER 100 ML IV SCH (09:00)
[2018-01-05] MEDS: methylPREDNISolone SOD SUCC 125 MG/2 ML VIAL IV SCH ×2 (09:21→20:59)
[2018-01-05] MEDS: MAGNESIUM SULFATE 32.48 MEQ in DEXTROSE 5% IN WATER 100 ML IV SCH ×2 (09:22→14:19)
--- NOTE | 2018-01-05 13:07 | General Surgery Progress Note ---
Subjective Patient reports: feels better, pain is less, flatus, bowel movement, afebrile Narrative: Note initiated : 01/05/18 at 1:05 pm Service Date, if different from initiated Date: [] Patient: Dayanna Stephens 57 y/o F admitted on 01/04/18 for abdominal pain. Chief Complaint: [Patient is doing much better. She has not had nausea or vomiting overnight. She had stool and gas in her stoma appliance during the night and early this morning. She denies crampy abdominal pain. She states that she is hungry. Abdominal x-rays shows significant decrease in gas and bowel distention compared to yesterday.] Objective Temp Pulse Resp BP Pulse Ox 98.5 F 114 H 16 152/84 93 01/05/18 11:31 01/05/18 04:00 01/05/18 11:31 01/05/18 11:31 01/05/18 11:31 - Additional Data Intake & Output - Last 24 hours: Intake & Output 01/03/18 01/04/18 01/05/18 01/06/18 05:59 05:59 05:59 05:59 Intake Total 2115 / 2115 368 / 368 Output Total 1075 / 1075 650 / 650 Balance 1040 / 1040 -282 / -282 Weight 216 lb - General physical appearance well developed, well nourished, no distress, moderate pain, chronically ill - Eyes PERRL, normal ocular movement - ENT normal pinna, normal nares, normal mucosa, no hearing loss, no congestion - Neck no masses, no bruits, trachea midline, no lymphadectomy, no venous distension - Respiratory normal expansion, normal respiratory effort, clear to percussion, clear to auscultation - Cardiovascular Cardiovascular exam: Present: normal rate and rhythm, RRR, +S1, +S2. Absent: JVD - Abdomen non tender (Patient does not have significant tenderness to palpation and she has good active bowel sounds), bowel sounds (present), surgical scars (none), masses (none) - Integumentary no rash, no growths, no abnormal pigmentation - Neurologic normal coordination, normal sensation - Musculoskeletal normal gait, normal posture - Psychiatric oriented to time, oriented to person, oriented to place, speech is normal, memory intact - Labs 01/05/18 04:00 01/05/18 04:00 Diabetes panel 01/05/18 Range/Units 04:00 Sodium 143 (133-145) mmol/L Potassium 4.9 (3.3-5.1) mmol/L Chloride 104 (96-108) mmol/L Carbon Dioxide 21 L (22-30) mmol/L BUN 17 (6-20) mg/dl Creatinine 0.8 (0.6-1.1) mg/dl Glucose 182 H (70-105) mg/dL Calcium 7.4 L (8.6-10.4) mg/dl AST 24 (0-37) U/l ALT 25 (0-40) U/l Alkaline Phosphatase 86 (39-117) U/L Total Protein 5.7 L (5.9-8.4) gm/dL Albumin 2.9 L (3.2-5.2) gm/dL Triglycerides 129 (<150) mg/dl Calcium panel 01/05/18 Range/Units 04:00 Calcium 7.4 L (8.6-10.4) mg/dl Phosphorus 4.9 H (2.7-4.5) mg/dL Albumin 2.9 L (3.2-5.2) gm/dL Pituitary panel 01/05/18 Range/Units 04:00 Sodium 143 (133-145) mmol/L Potassium 4.9 (3.3-5.1) mmol/L Chloride 104 (96-108) mmol/L Carbon Dioxide 21 L (22-30) mmol/L BUN 17 (6-20) mg/dl Creatinine 0.8 (0.6-1.1) mg/dl Glucose 182 H (70-105) mg/dL Calcium 7.4 L (8.6-10.4) mg/dl Adrenal panel 01/05/18 Range/Units 04:00 Sodium 143 (133-145) mmol/L Potassium 4.9 (3.3-5.1) mmol/L Chloride 104 (96-108) mmol/L Carbon Dioxide 21 L (22-30) mmol/L BUN 17 (6-20) mg/dl Creatinine 0.8 (0.6-1.1) mg/dl Glucose 182 H (70-105) mg/dL Calcium 7.4 L (8.6-10.4) mg/dl Total Bilirubin < 0.2 (0.0-1.0) mg/dL AST 24 (0-37) U/l ALT 25 (0-40) U/l Alkaline Phosphatase 86 (39-117) U/L Total Protein 5.7 L (5.9-8.4) gm/dL Albumin 2.9 L (3.2-5.2) gm/dL Assessment and Plan (1) Nausea & vomiting Status: Acute Assessment and plan: Patient is significantly improved and is not demonstrating any symptoms or findings suggestive of obstruction. Full liquid diet will be started and she will be restarted on MiraLAX Current Visit: Yes (2) Small bowel obstruction, partial Status: Acute Assessment and plan: Clinically much improved since yesterday Current Visit: Yes (3) Chronic intestinal pseudo-obstruction Status: Acute Current Visit: No (4) Supraventricular tachycardia Status: Acute Assessment and plan: Patient is improved and heart rate is trending down Current Visit: No - Time Spent With Patient Total time spent is greater than 50% in coordination of care (as documented) at patient's floor/unit and/or counseling patient:
[2018-01-05] MEDS: CALCITRIOL 0.25 MCG CAPSULE PO SCH ×2 (16:05→21:00)
[2018-01-05] MEDS ORDERED: METHOCARBAMOL 1,000 MG/10 ML VIAL ONE (17:35)
[2018-01-05] MEDS: METHOCARBAMOL 1,000 MG/10 ML VIAL IV PRN (17:37)
[2018-01-05] MEDS: ACETAMINOPHEN 1,000 MG/100 ML BOTTLE IV SCH (18:38)
[2018-01-05] MEDS: CALCIUM CARBONATE 1,250 MG/5 ML ORAL.SUSP PO SCH (21:00)
[2018-01-05] MEDS: POLYETHYLENE GLYCOL 3350 17 GM PACKET PO SCH (21:01)
[2018-01-05] MEDS: DULoxetine 30 MG CAPSULE PO SCH (21:01)
[2018-01-06] MEDS: LORazepam 2 MG/ML VIAL IV PRN ×2 (00:40→23:04)
[2018-01-06] MEDS: HYDROmorphone 2 MG/ML VIAL IV PRN ×6 (00:40→21:25)
[2018-01-06] MEDS: ACETAMINOPHEN 1,000 MG/100 ML BOTTLE IV SCH ×5 (00:41→23:04)
[2018-01-06] MEDS: 0.9 % SODIUM CHLORIDE 1,000 ML IV SCH ×2 (04:11→16:17)
[2018-01-06 06:12] LABS: ALT/SGPT 17 U/l (0-40); Albumin 3.1 gm/dL (3.2-5.2); Albumin/Globulin Ratio 1.6 (1.0-2.3); Alkaline Phosphatase 64 U/L (39-117); Bilirubin,Direct < 0.2 mg/dL (0.0-0.3); Blood Urea Nitrogen 5 mg/dl (6-20); Gamma Glutamyl Transpeptidase 13 U/L (5-36); Uric Acid 4.8 mg/dL (2.5-8.0)
[2018-01-06 06:18] LABS: Basophils # (Auto) 0 K/mcL (0.0-0.3); Basophils % (Auto) 0.1 % (0.0-2.0); Eosinophils # (Auto) 0.2 K/mcL (0.0-0.7); Eosinophils % (Auto) 3.6 % (0.0-7.0); Granulocytes % (Auto) 81.5 % (38.0-78.0); Lymphocytes # (Auto) 0.7 K/mcL (1.5-4.8); Mean Cell Volume 85.6 fL (80.0-100.0); Mean Corpuscular Hemoglobin 28.2 pg (26.0-34.0); Monocytes # (Auto) 0.2 K/mcL (0.1-0.9); Monocytes % (Auto) 2.8 % (1.0-12.0); Platelet Count 249 K/mcL (140-440); RBC 3.48 M/mcL (4.00-5.20)
[2018-01-06] MEDS: LEVOTHYROXINE 125 MCG TABLET PO SCH (07:06)
[2018-01-06] MEDS: PANTOPRAZOLE 40 MG VIAL IV SCH ×2 (07:07→17:30)
[2018-01-06] MEDS: CALCIUM CARBONATE 1,250 MG/5 ML ORAL.SUSP PO SCH ×2 (08:13→21:41)
[2018-01-06] MEDS: CALCITRIOL 0.25 MCG CAPSULE PO SCH ×3 (08:13→21:28)
[2018-01-06] MEDS: methylPREDNISolone SOD SUCC 125 MG/2 ML VIAL IV SCH ×2 (08:13→21:29)
[2018-01-06] MEDS: DULoxetine 30 MG CAPSULE PO SCH ×2 (08:14→21:28)
[2018-01-06] MEDS: POLYETHYLENE GLYCOL 3350 17 GM PACKET PO SCH ×2 (08:14→21:28)
--- NOTE | 2018-01-06 16:21 | General Surgery Progress Note ---
Subjective Patient reports: feels better, pain is less, tolerating liquids well, flatus, bowel movement, afebrile Narrative: Note initiated : 01/06/18 at 4:19 pm Service Date, if different from initiated Date: [] Patient: Dayanna Stephens 57 y/o F admitted on 01/04/18 for Abd Pain/Small Bowel Obstruction w/Intractable N/V. Chief Complaint: [Patient is stable she is still having large volume of flatus through her stoma and she has had output of large volume of stool. Her abdomen is soft and she denies having any type of abdominal pain. She is on a full liquid diet and has no difficulty. She denies nausea. Her abdominal x-rays today shows dilated loops of small bowel however clinically she is much better.] Objective Temp Pulse Resp BP Pulse Ox 98.2 F 97 H 18 137/88 96 01/06/18 15:55 01/06/18 04:00 01/06/18 15:55 01/06/18 15:55 01/06/18 15:55 - Additional Data Intake & Output - Last 24 hours: Intake & Output 01/04/18 01/05/18 01/06/18 01/07/18 05:59 05:59 05:59 05:59 Intake Total 2115 / 2115 3108 / 3108 2250 / 2250 Output Total 1075 / 1075 6050 / 6050 2600 / 2600 Balance 1040 / 1040 -2942 / -2942 -350 / -350 Weight 216 lb 220 lb 220 lb - General physical appearance well developed, well nourished, no distress, no pain - ENT normal pinna, normal nares, normal mucosa, no hearing loss, no congestion - Neck no masses, no bruits, trachea midline, no lymphadectomy, no venous distension - Respiratory normal expansion, normal respiratory effort, clear to percussion, clear to auscultation - Cardiovascular Cardiovascular exam: Present: normal rate and rhythm, RRR, +S1, +S2, tachycardia. Absent: JVD - Abdomen soft, non tender, bowel sounds (present), surgical scars (none), masses (none) - Rectum no hemorrhoids, no tenderness, no masses, no bleeding - Integumentary no rash, no growths, no abnormal pigmentation - Neurologic normal coordination, normal sensation - Musculoskeletal normal gait, normal posture - Labs 01/06/18 05:00 01/06/18 05:00 Diabetes panel 01/06/18 Range/Units 05:00 Sodium 140 (133-145) mmol/L Potassium 4.4 (3.3-5.1) mmol/L Chloride 103 (96-108) mmol/L Carbon Dioxide 27 (22-30) mmol/L BUN 5 L (6-20) mg/dl Creatinine 0.6 (0.6-1.1) mg/dl Glucose 227 H (70-105) mg/dL Calcium 7.1 L (8.6-10.4) mg/dl AST 12 (0-37) U/l ALT 17 (0-40) U/l Alkaline Phosphatase 64 (39-117) U/L Total Protein 5.1 L (5.9-8.4) gm/dL Albumin 3.1 L (3.2-5.2) gm/dL Triglycerides 116 (<150) mg/dl Calcium panel 01/06/18 Range/Units 05:00 Calcium 7.1 L (8.6-10.4) mg/dl Phosphorus 2.9 (2.7-4.5) mg/dL Albumin 3.1 L (3.2-5.2) gm/dL Pituitary panel 01/06/18 Range/Units 05:00 Sodium 140 (133-145) mmol/L Potassium 4.4 (3.3-5.1) mmol/L Chloride 103 (96-108) mmol/L Carbon Dioxide 27 (22-30) mmol/L BUN 5 L (6-20) mg/dl Creatinine 0.6 (0.6-1.1) mg/dl Glucose 227 H (70-105) mg/dL Calcium 7.1 L (8.6-10.4) mg/dl Adrenal panel 01/06/18 Range/Units 05:00 Sodium 140 (133-145) mmol/L Potassium 4.4 (3.3-5.1) mmol/L Chloride 103 (96-108) mmol/L Carbon Dioxide 27 (22-30) mmol/L BUN 5 L (6-20) mg/dl Creatinine 0.6 (0.6-1.1) mg/dl Glucose 227 H (70-105) mg/dL Calcium 7.1 L (8.6-10.4) mg/dl Total Bilirubin 0.2 (0.0-1.0) mg/dL AST 12 (0-37) U/l ALT 17 (0-40) U/l Alkaline Phosphatase 64 (39-117) U/L Total Protein 5.1 L (5.9-8.4) gm/dL Albumin 3.1 L (3.2-5.2) gm/dL Assessment and Plan (1) Nausea & vomiting Status: Acute Assessment and plan: Patient is significantly improved and is not demonstrating any symptoms or findings suggestive of obstruction. advanced to GI soft diet Current Visit: Yes (2) Small bowel obstruction, partial Status: Acute Assessment and plan: Clinically much improved since yesterday Current Visit: Yes (3) Chronic intestinal pseudo-obstruction Status: Acute Current Visit: No (4) Supraventricular tachycardia Status: Acute Assessment and plan: Patient is improved and heart rate is trending down Current Visit: No - Time Spent With Patient Total time spent is greater than 50% in coordination of care (as documented) at patient's floor/unit and/or counseling patient:
--- NOTE | 2018-01-06 17:32 | XRay Report ---
CLINICAL INFORMATION: Follow-up small bowel obstruction COMPARISON: 01/05/2018 0824 hours FINDINGS: The stomach and multiple loops of small bowel in the upper central abdomen and increased in caliber now moderately dilated air-fluid levels. Most of the distal small bowel and colon are decompressed but there is moderate air in the transverse colon IMPRESSION: Worsening mid small bowel obstruction Interpreted and Authenticated by: All Lundberg 01/06/18
--- NOTE | 2018-01-06 17:42 | XRay Report ---
CLINICAL INFORMATION: Small bowel obstruction COMPARISON: 01/04/2018 FINDINGS: Stomach and a few loops of small bowel the upper central abdomen are mildly dilated and demonstrate air-fluid levels on the upright film. Distal small bowel and colon are decompressed. IMPRESSION: Small bowel obstruction mid jejunal level. Slight improvement from yesterday's study Interpreted and Authenticated by: All Lundberg 01/06/18
[2018-01-07] MEDS: HYDROmorphone 2 MG/ML VIAL IV PRN ×8 (00:52→21:22)
[2018-01-07 05:22] LABS: Basophils # (Auto) 0 K/mcL (0.0-0.3); Basophils % (Auto) 0.2 % (0.0-2.0); Eosinophils # (Auto) 0.2 K/mcL (0.0-0.7); Eosinophils % (Auto) 3.3 % (0.0-7.0); Granulocytes % (Auto) 80.9 % (38.0-78.0); Lymphocytes # (Auto) 0.7 K/mcL (1.5-4.8); Lymphocytes % (Auto) 12.6 % (15.5-49.0); Mean Corpuscular HGB Conc 32.8 g/dL (31.0-36.0); Mean Corpuscular Hemoglobin 28.2 pg (26.0-34.0); Monocytes # (Auto) 0.2 K/mcL (0.1-0.9); Platelet Count 243 K/mcL (140-440); RBC 3.56 M/mcL (4.00-5.20)
[2018-01-07] MEDS: METHOCARBAMOL 1,000 MG/10 ML VIAL IV PRN ×2 (05:46→13:06)
[2018-01-07] MEDS: ACETAMINOPHEN 1,000 MG/100 ML BOTTLE IV SCH ×3 (05:46→17:10)
[2018-01-07 06:05] LABS: ALT/SGPT 16 U/l (0-40); Albumin 2.9 gm/dL (3.2-5.2); Albumin/Globulin Ratio 1.2 (1.0-2.3); Alkaline Phosphatase 64 U/L (39-117); Bilirubin,Direct < 0.2 mg/dL (0.0-0.3); Blood Urea Nitrogen 10 mg/dl (6-20); Gamma Glutamyl Transpeptidase 13 U/L (5-36)
--- NOTE | 2018-01-07 06:39 | XRay Report ---
CLINICAL INFORMATION: Follow small bowel obstruction COMPARISON: 01/06/2018 FINDINGS: The stomach and multiple loops of dilated upper small bowel show a slight decrease in caliber with or gas in the distal small bowel and residual colon. Findings suggesting improvement in upper small bowel obstruction. No free air or soft tissue mass. IMPRESSION: Improving partial small bowel obstruction Interpreted and Authenticated by: All Lundberg 01/07/18
[2018-01-07] MEDS: PANTOPRAZOLE 40 MG VIAL IV SCH ×2 (06:54→17:09)
[2018-01-07] MEDS: LEVOTHYROXINE 125 MCG TABLET PO SCH (06:54)
[2018-01-07] MEDS: POLYETHYLENE GLYCOL 3350 17 GM PACKET PO SCH ×2 (08:23→21:21)
[2018-01-07] MEDS: CALCITRIOL 0.25 MCG CAPSULE PO SCH ×3 (08:23→21:21)
[2018-01-07] MEDS: CALCIUM CARBONATE 1,250 MG/5 ML ORAL.SUSP PO SCH ×2 (08:23→21:21)
[2018-01-07] MEDS: methylPREDNISolone SOD SUCC 125 MG/2 ML VIAL IV SCH ×2 (08:24→21:21)
[2018-01-07] MEDS: DULoxetine 30 MG CAPSULE PO SCH ×2 (08:24→21:21)
[2018-01-07] MEDS: MAGNESIUM HYDROXIDE 30 ML ORAL.SUSP PO SCH ×3 (14:05→21:21)
--- NOTE | 2018-01-07 14:43 | General Surgery Progress Note ---
Subjective Patient reports: feels better, pain is less, tolerating liquids well, flatus, no bowel movement, afebrile Narrative: Note initiated : 01/07/18 at 2:41 pm Service Date, if different from initiated Date: [] Patient: Dayanna Stephens 57 y/o F admitted on 01/04/18 for Abd Pain/Small Bowel Obstruction w/Intractable N/V. Chief Complaint: [Patient is stable clinically but her bowel movements have ceased for the past 18 hours. She does not complain of nausea and she is tolerated her full liquids without difficulty. She denies abdominal distention however her abdominal films shows increased stool in her colon with a similar amount of gas in her small bowel. This is probably related to her intestinal pseudoobstruction so she will require more laxatives.] Objective Temp Pulse Resp BP Pulse Ox 97.2 F 101 H 18 166/97 97 01/07/18 12:00 01/07/18 12:00 01/07/18 12:00 01/07/18 12:00 01/07/18 12:00 - Additional Data Intake & Output - Last 24 hours: Intake & Output 01/05/18 01/06/18 01/07/18 01/08/18 05:59 05:59 05:59 05:59 Intake Total 2115 / 2115 3108 / 3108 3500 / 3500 1700 / 1700 Output Total 1075 / 1075 6050 / 6050 5900 / 5900 1700 / 1700 Balance 1040 / 1040 -2942 / -2942 -2400 / -2400 0 / 0 Weight 216 lb 220 lb 222 lb 8 oz - General physical appearance well developed, well nourished, no distress, severe distress, no pain - Eyes PERRL, normal ocular movement - ENT normal pinna, normal nares, normal mucosa, no hearing loss, no congestion - Neck no masses, no bruits, trachea midline, no lymphadectomy, no venous distension - Respiratory normal expansion, normal respiratory effort, clear to percussion, clear to auscultation - Cardiovascular Cardiovascular exam: Present: normal rate and rhythm, irregular rhythm, RRR, +S1 , +S2. Absent: JVD, tachycardia - Abdomen soft, non tender, bowel sounds (present), surgical scars (none), masses (none) - Integumentary no rash, no growths, no abnormal pigmentation - Neurologic normal coordination, normal sensation - Musculoskeletal normal gait, normal posture - Psychiatric oriented to time, oriented to person, oriented to place, speech is normal, memory intact - Labs 01/07/18 04:30 01/07/18 04:30 Diabetes panel 01/07/18 Range/Units 04:30 Sodium 140 (133-145) mmol/L Potassium 4.7 (3.3-5.1) mmol/L Chloride 103 (96-108) mmol/L Carbon Dioxide 29 (22-30) mmol/L BUN 10 (6-20) mg/dl Creatinine 0.6 (0.6-1.1) mg/dl Glucose 240 H (70-105) mg/dL Calcium 7.9 L (8.6-10.4) mg/dl AST 10 (0-37) U/l ALT 16 (0-40) U/l Alkaline Phosphatase 64 (39-117) U/L Total Protein 5.4 L (5.9-8.4) gm/dL Albumin 2.9 L (3.2-5.2) gm/dL Triglycerides 141 (<150) mg/dl Calcium panel 01/07/18 Range/Units 04:30 Calcium 7.9 L (8.6-10.4) mg/dl Phosphorus 3.6 (2.7-4.5) mg/dL Albumin 2.9 L (3.2-5.2) gm/dL Pituitary panel 01/07/18 Range/Units 04:30 Sodium 140 (133-145) mmol/L Potassium 4.7 (3.3-5.1) mmol/L Chloride 103 (96-108) mmol/L Carbon Dioxide 29 (22-30) mmol/L BUN 10 (6-20) mg/dl Creatinine 0.6 (0.6-1.1) mg/dl Glucose 240 H (70-105) mg/dL Calcium 7.9 L (8.6-10.4) mg/dl Adrenal panel 01/07/18 Range/Units 04:30 Sodium 140 (133-145) mmol/L Potassium 4.7 (3.3-5.1) mmol/L Chloride 103 (96-108) mmol/L Carbon Dioxide 29 (22-30) mmol/L BUN 10 (6-20) mg/dl Creatinine 0.6 (0.6-1.1) mg/dl Glucose 240 H (70-105) mg/dL Calcium 7.9 L (8.6-10.4) mg/dl Total Bilirubin < 0.2 (0.0-1.0) mg/dL AST 10 (0-37) U/l ALT 16 (0-40) U/l Alkaline Phosphatase 64 (39-117) U/L Total Protein 5.4 L (5.9-8.4) gm/dL Albumin 2.9 L (3.2-5.2) gm/dL Assessment and Plan (1) Nausea & vomiting Status: Acute Assessment and plan: Patient is significantly improved and is not demonstrating any symptoms or findings suggestive of obstruction. advanced to GI soft diet We will start on milk of magnesia 2-3 times daily Possible discharge in 24-48 hours Current Visit: Yes (2) Small bowel obstruction, partial Status: Acute Assessment and plan: Clinically much improved since yesterday Current Visit: Yes (3) Chronic intestinal pseudo-obstruction Status: Acute Current Visit: No (4) Supraventricular tachycardia Status: Acute Assessment and plan: Patient is improved and heart rate is normal Current Visit: No - Time Spent With Patient Total time spent is greater than 50% in coordination of care (as documented) at patient's floor/unit and/or counseling patient:
[2018-01-08] MEDS: ACETAMINOPHEN 1,000 MG/100 ML BOTTLE IV SCH ×2 (00:29→05:16)
[2018-01-08] MEDS: LORazepam 2 MG/ML VIAL IV PRN (00:40)
[2018-01-08] MEDS: HYDROmorphone 2 MG/ML VIAL IV PRN ×3 (05:16→10:45)
[2018-01-08 05:34] LABS: Basophils # (Auto) 0 K/mcL (0.0-0.3); Basophils % (Auto) 0.2 % (0.0-2.0); Eosinophils # (Auto) 0 K/mcL (0.0-0.7); Eosinophils % (Auto) 0.9 % (0.0-7.0); Granulocytes % (Auto) 77.1 % (38.0-78.0); Lymphocytes # (Auto) 0.8 K/mcL (1.5-4.8); Lymphocytes % (Auto) 15.5 % (15.5-49.0); Mean Cell Volume 86.6 fL (80.0-100.0); Mean Corpuscular HGB Conc 33.8 g/dL (31.0-36.0); Mean Corpuscular Hemoglobin 29.3 pg (26.0-34.0); Monocytes # (Auto) 0.3 K/mcL (0.1-0.9); Monocytes % (Auto) 6.3 % (1.0-12.0); Platelet Count 246 K/mcL (140-440); RBC 3.62 M/mcL (4.00-5.20); Red Cell Distribution Width 14.9 % (11.5-14.5)
[2018-01-08 06:03] LABS: ALT/SGPT 18 U/l (0-40); Albumin 3.2 gm/dL (3.2-5.2); Albumin/Globulin Ratio 1.5 (1.0-2.3); Alkaline Phosphatase 62 U/L (39-117); Bilirubin,Direct < 0.2 mg/dL (0.0-0.3); Blood Urea Nitrogen 16 mg/dl (6-20); Gamma Glutamyl Transpeptidase 14 U/L (5-36); Uric Acid 3.4 mg/dL (2.5-8.0)
[2018-01-08] MEDS: PANTOPRAZOLE 40 MG VIAL IV SCH (07:39)
[2018-01-08] MEDS: LEVOTHYROXINE 125 MCG TABLET PO SCH (07:46)
[2018-01-08] MEDS: CALCIUM CARBONATE 1,250 MG/5 ML ORAL.SUSP PO SCH (10:39)
[2018-01-08] MEDS: POLYETHYLENE GLYCOL 3350 17 GM PACKET PO SCH (10:40)
[2018-01-08] MEDS: CALCITRIOL 0.25 MCG CAPSULE PO SCH (10:40)
[2018-01-08] MEDS: methylPREDNISolone SOD SUCC 125 MG/2 ML VIAL IV SCH (10:40)
[2018-01-08] MEDS: DULoxetine 30 MG CAPSULE PO SCH (10:41)
--- NOTE | 2018-01-08 12:18 | General Surgery Progress Note ---
Subjective Patient reports: feels better, pain is less, tolerating a regular diet, flatus, bowel movement, afebrile Narrative: Note initiated : 01/08/18 at 12:15 pm Service Date, if different from initiated Date: [] Patient: Dayanna Stephens 57 y/o F admitted on 01/04/18 for Abd Pain/Small Bowel Obstruction w/Intractable N/V. Chief Complaint: [Patient is doing much better. She states that she feels better than she is felt since her last surgery. She has tolerated GI soft diet and with a milk of magnesia was able to have multiple large bowel movements and large volume of flatus. She looks clinically better than she smoked since her initial surgery.] Objective Temp Pulse Resp BP Pulse Ox 98.5 F 79 16 172/90 99 01/08/18 07:05 01/08/18 07:05 01/08/18 07:05 01/08/18 07:05 01/08/18 07:05 - Additional Data Intake & Output - Last 24 hours: Intake & Output 01/06/18 01/07/18 01/08/18 01/09/18 05:59 05:59 05:59 05:59 Intake Total 3108 / 3108 3500 / 3500 3000 / 3000 460 / 460 Output Total 6050 / 6050 5900 / 5900 5450 / 5450 1450 / 1450 Balance -2942 / -2942 -2400 / -2400 -2450 / -2450 -990 / -990 Weight 220 lb 222 lb 8 oz 222 lb - General physical appearance well developed, well nourished, no distress, obese - Eyes PERRL, normal ocular movement - ENT normal pinna, normal nares, normal mucosa, no hearing loss, no congestion - Neck no masses, no bruits, trachea midline, no lymphadectomy, no venous distension - Respiratory normal expansion, normal respiratory effort, clear to percussion, clear to auscultation - Cardiovascular Cardiovascular exam: Present: normal rate and rhythm, RRR, +S1, +S2. Absent: JVD, tachycardia - Abdomen non tender, bowel sounds (present), surgical scars (none), masses (none) - Integumentary no rash, no growths, no abnormal pigmentation - Neurologic normal coordination, normal sensation - Musculoskeletal normal gait, normal posture - Psychiatric oriented to time, oriented to person, oriented to place, speech is normal, memory intact - Labs 01/08/18 04:50 01/08/18 04:50 Diabetes panel 01/08/18 Range/Units 04:50 Sodium 139 (133-145) mmol/L Potassium 4.5 (3.3-5.1) mmol/L Chloride 98 (96-108) mmol/L Carbon Dioxide 32 H (22-30) mmol/L BUN 16 (6-20) mg/dl Creatinine 0.6 (0.6-1.1) mg/dl Glucose 253 H (70-105) mg/dL Calcium 8.3 L (8.6-10.4) mg/dl AST 11 (0-37) U/l ALT 18 (0-40) U/l Alkaline Phosphatase 62 (39-117) U/L Total Protein 5.4 L (5.9-8.4) gm/dL Albumin 3.2 (3.2-5.2) gm/dL Triglycerides 213 H (<150) mg/dl Calcium panel 01/08/18 Range/Units 04:50 Calcium 8.3 L (8.6-10.4) mg/dl Phosphorus 3.7 (2.7-4.5) mg/dL Albumin 3.2 (3.2-5.2) gm/dL Pituitary panel 01/08/18 Range/Units 04:50 Sodium 139 (133-145) mmol/L Potassium 4.5 (3.3-5.1) mmol/L Chloride 98 (96-108) mmol/L Carbon Dioxide 32 H (22-30) mmol/L BUN 16 (6-20) mg/dl Creatinine 0.6 (0.6-1.1) mg/dl Glucose 253 H (70-105) mg/dL Calcium 8.3 L (8.6-10.4) mg/dl Adrenal panel 01/08/18 Range/Units 04:50 Sodium 139 (133-145) mmol/L Potassium 4.5 (3.3-5.1) mmol/L Chloride 98 (96-108) mmol/L Carbon Dioxide 32 H (22-30) mmol/L BUN 16 (6-20) mg/dl Creatinine 0.6 (0.6-1.1) mg/dl Glucose 253 H (70-105) mg/dL Calcium 8.3 L (8.6-10.4) mg/dl Total Bilirubin < 0.2 (0.0-1.0) mg/dL AST 11 (0-37) U/l ALT 18 (0-40) U/l Alkaline Phosphatase 62 (39-117) U/L Total Protein 5.4 L (5.9-8.4) gm/dL Albumin 3.2 (3.2-5.2) gm/dL Assessment and Plan (1) Nausea & vomiting Status: Acute Assessment and plan: Patient is significantly improved and is not demonstrating any symptoms or findings suggestive of obstruction. advanced to GI soft diet Patient is stable for discharge home Current Visit: Yes (2) Small bowel obstruction, partial Status: Acute Assessment and plan: Clinically much improved since yesterday Current Visit: Yes (3) Chronic intestinal pseudo-obstruction Status: Acute Current Visit: No (4) Supraventricular tachycardia Status: Acute Assessment and plan: Patient is improved and heart rate is normal Current Visit: No - Time Spent With Patient Total time spent is greater than 50% in coordination of care (as documented) at patient's floor/unit and/or counseling patient:
--- NOTE | 2018-01-08 12:24 | Discharge Summary ---
Providers - Providers Patient information: Note initiated : 01/08/18 at 12:21 pm Service Date, if different from initiated Date: [] Patient: Dayanna Stephens 57 y/o F admitted on 01/04/18 for Abd Pain/Small Bowel Obstruction w/Intractable N/V. 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 She presents to the emergency room with multiple episodes of nausea and vomiting but was having large volume of stool output. Abdominal x- ray suggests partial obstruction in the mid small bowel. The patient was treated for her nausea and vomiting symptomatically and it gradually resolved. She continued to have multiple bowel movements. Her bowel gas pattern evolved during her hospital stay but she always had distention of her small bowel. She had bowel movements and flatus daily and her diet was gradually advanced to a soft regular diet. She is doing well now and is having bowel movements. She is advised that she will need to take a mild laxative as well as MiraLAX on a daily basis. Patient is discharged in improved condition. There is still a possibility that she may need a repeat adhesio lysis but she is not symptomatic enough to proceed with it at this time. Discharge diagnosis: Recurrent nausea and vomiting Secondary discharge diagnosis: Partial intestinal obstruction due to adhesions Chronic intestinal pseudoobstruction Supraventricular tachycardia, transient, resolved Reason for admission: Recurrent nausea and vomiting Procedures: 9 Pertinent studies/significant findings: None Complications: None Exam Temp Pulse Resp BP Pulse Ox 98.5 F 79 16 172/90 99 01/08/18 07:05 01/08/18 07:05 01/08/18 07:05 01/08/18 07:05 01/08/18 07:05 - General physical appearance well developed, well nourished, no distress - Eyes PERRL, normal ocular movement - ENT normal pinna, normal nares, normal mucosa, no hearing loss, no congestion - Head Head exam IM: Present: atraumatic, normocephalic - Neck no masses, no bruits, trachea midline, no lymphadectomy, no venous distension - Cardiovascular Cardiovascular exam IM: Present: normal rate and rhythm - Respiratory normal expansion, normal respiratory effort, clear to percussion, clear to auscultation - Abdomen Abdomen: Present: soft, non tender, bowel sounds, distended (No significant abdominal distention; incision is well-healed; good active bowel sounds; no abdominal tenderness) Hernia: Present: none - Genitourinary Present: normal external genitalia - Integumentary Present: no rash, no growths, no abnormal pigmentation - Neurologic Present: normal coordination, normal sensation - Musculoskeletal Present: normal gait, normal posture - Psychiatric Present: oriented to time, oriented to person, oriented to place, speech is normal, memory intact Discharge Plan - Patient/Caregiver Discharge Instructions Activity: increase activity as tolerated Diet: Regular Diet Additional Instructions: Continue with soft diet MiraLAX 8 ounces at least twice daily Milk of magnesia 2 tablespoons twice daily as needed; may increase to 4 times daily Prescriptions: Promethazine [Phenergan] 25 mg GA Q4HP PRN #30 supp.rect PRN Reason: Nausea And Vomiting - Follow up Plan Follow up with: Bertha Currie MD [Physician] - Douglas Haque MD [Primary Care Provider] - Disposition: Home, Self-Care Prognosis: Good Rehab Potential: Good I certify that the patient requires SNF services.: No Overall status at discharge: patient is not back to baseline Pending Studies Resuscitation Status Full Code Diet GI Soft/Transitional Start SatJan 06 1642 Calcitriol (Rocaltrol) 0.5 mcg PO TID [facility] Last Admin: 01/08/18 10:40 Dose: 0.5 mcg Admin: 01/07/18 21:21 Dose: 0.5 mcg Admin: 01/07/18 15:40 Dose: 0.5 mcg Admin: 01/07/18 08:23 Dose: 0.5 mcg Admin: 01/06/18 21:28 Dose: 0.5 mcg Admin: 01/06/18 15:05 Dose: 0.5 mcg Admin: 01/06/18 08:13 Dose: 0.5 mcg Admin: 01/05/18 21:00 Dose: 0.5 mcg Admin: 01/05/18 16:05 Dose: 0.5 mcg Calcium Carbonate/Glycine (Calcium Carbonate) 1,200 mg PO BID [facility] Last Admin: 01/08/18 10:39 Dose: 1,200 mg Admin: 01/07/18 21:21 Dose: 1,200 mg Admin: 01/07/18 08:23 Dose: 1,200 mg Admin: 01/06/18 21:41 Dose: 1,200 mg Admin: 01/06/18 08:13 Dose: 1,200 mg Admin: 01/05/18 21:00 Dose: 1,200 mg Duloxetine HCl (Cymbalta) 30 mg PO BID [facility] Last Admin: 01/08/18 10:41 Dose: 30 mg Admin: 01/07/18 21:21 Dose: 30 mg Admin: 01/07/18 08:24 Dose: 30 mg Admin: 01/06/18 21:28 Dose: 30 mg Admin: 01/06/18 08:14 Dose: 30 mg Admin: 01/05/18 21:01 Dose: 30 mg Hydromorphone HCl (Dilaudid) 1 mg IV Q2HP PRN PRN Reason: PAIN LEVEL > 6 Last Admin: 01/08/18 10:45 Dose: 1 mg Admin: 01/08/18 07:38 Dose: 1 mg Admin: 01/08/18 05:16 Dose: 1 mg Admin: 01/07/18 21:22 Dose: 1 mg Admin: 01/07/18 17:10 Dose: 1 mg Admin: 01/07/18 14:05 Dose: 1 mg Admin: 01/07/18 11:36 Dose: 1 mg Admin: 01/07/18 09:08 Dose: 1 mg Admin: 01/07/18 06:54 Dose: 1 mg Admin: 01/07/18 04:30 Dose: 1 mg Admin: 01/07/18 00:52 Dose: 1 mg Admin: 01/06/18 21:25 Dose: 1 mg Admin: 01/06/18 16:53 Dose: 1 mg Admin: 01/06/18 13:19 Dose: 1 mg Admin: 01/06/18 07:07 Dose: 1 mg Admin: 01/06/18 04:11 Dose: 1 mg Admin: 01/06/18 00:40 Dose: 1 mg Admin: 01/05/18 21:00 Dose: 1 mg Admin: 01/05/18 14:27 Dose: 1 mg Admin: 01/05/18 07:10 Dose: 1 mg Admin: 01/05/18 00:54 Dose: 1 mg Admin: 01/04/18 21:42 Dose: 1 mg Admin: 01/04/18 17:36 Dose: 1 mg Acetaminophen (Ofirmev) 1,000 mg in 100 mls @ 200 mls/hr IV Q6 [facility] Last Infusion: 01/08/18 06:05 Dose: 0 mls/hr Admin: 01/08/18 05:16 Dose: 200 mls/hr Infusion: 01/08/18 01:00 Dose: 0 mls/hr Admin: 01/08/18 00:29 Dose: 200 mls/hr Infusion: 01/07/18 17:40 Dose: 200 mls/hr Admin: 01/07/18 17:10 Dose: 200 mls/hr Infusion: 01/07/18 12:50 Dose: 200 mls/hr Admin: 01/07/18 12:20 Dose: 200 mls/hr Infusion: 01/07/18 06:16 Dose: 0 mls/hr Admin: 01/07/18 05:46 Dose: 200 mls/hr Infusion: 01/06/18 23:50 Dose: 0 mls/hr Admin: 01/06/18 23:04 Dose: 200 mls/hr Infusion: 01/06/18 18:00 Dose: 0 mls/hr Admin: 01/06/18 17:30 Dose: 200 mls/hr Infusion: 01/06/18 12:43 Dose: 0 mls/hr Admin: 01/06/18 12:13 Dose: 200 mls/hr Infusion: 01/06/18 06:39 Dose: 0 mls/hr Admin: 01/06/18 05:38 Dose: 200 mls/hr Infusion: 01/06/18 01:10 Dose: 0 mls/hr Admin: 01/06/18 00:41 Dose: 200 mls/hr Infusion: 01/05/18 19:08 Dose: 200 mls/hr Admin: 01/05/18 18:38 Dose: 200 mls/hr Levothyroxine Sodium (Synthroid) 250 mcg PO QAMAC [facility] Last Admin: 01/08/18 07:46 Dose: 250 mcg Admin: 01/07/18 06:54 Dose: 250 mcg Admin: 01/06/18 07:06 Dose: 250 mcg Admin: 01/05/18 06:59 Dose: 250 mcg Lorazepam (Ativan) 1 mg IV Q6HP PRN PRN Reason: ANXIETY/SEDATION Last Admin: 01/08/18 00:40 Dose: 1 mg Admin: 01/06/18 23:04 Dose: 1 mg Admin: 01/06/18 00:40 Dose: 1 mg Admin: 01/05/18 18:38 Dose: 1 mg Admin: 01/05/18 01:25 Dose: 1 mg Methocarbamol (Robaxin) 750 mg IV Q4HP PRN PRN Reason: Muscle Spasm Last Admin: 01/07/18 13:06 Dose: 750 mg Admin: 01/07/18 05:46 Dose: 750 mg Admin: 01/05/18 17:37 Dose: 750 mg Methylprednisolone Sodium Succinate (Solu-Medrol) 62.5 mg IV Q12 [facility] Last Admin: 01/08/18 10:40 Dose: 62.5 mg Admin: 01/07/18 21:21 Dose: 62.5 mg Admin: 01/07/18 08:24 Dose: 62.5 mg Admin: 01/06/18 21:29 Dose: 62.5 mg Admin: 01/06/18 08:13 Dose: 62.5 mg Admin: 01/05/18 20:59 Dose: 62.5 mg Admin: 01/05/18 09:21 Dose: 62.5 mg Admin: 01/04/18 21:43 Dose: 62.5 mg Ondansetron HCl (Zofran) 4 mg IV Q4HP PRN PRN Reason: Nausea And Vomiting Last Admin: 01/05/18 00:54 Dose: 4 mg Admin: 01/04/18 17:46 Dose: 4 mg Pantoprazole Sodium (Protonix) 40 mg IV BIDAC [facility] Last Admin: 01/08/18 07:39 Dose: 40 mg Admin: 01/07/18 17:09 Dose: 40 mg Admin: 01/07/18 06:54 Dose: 40 mg Admin: 01/06/18 17:30 Dose: 40 mg Admin: 01/06/18 07:07 Dose: 40 mg Admin: 01/05/18 17:37 Dose: 40 mg Admin: 01/05/18 06:59 Dose: 40 mg Admin: 01/04/18 17:36 Dose: 40 mg Polyethylene Glycol (Miralax) 17 gm PO BID [facility] Last Admin: 01/08/18 10:40 Dose: 17 gm Admin: 01/07/18 21:21 Dose: 17 gm Admin: 01/07/18 08:23 Dose: 17 gm Admin: 01/06/18 21:28 Dose: 17 gm Admin: 01/06/18 08:14 Dose: 17 gm Admin: 01/05/18 21:01 Dose: 17 gm Promethazine HCl (Phenergan) 12.5 mg IV Q6HP PRN PRN Reason: Nausea And Vomiting Last Admin: 01/05/18 08:55 Dose: 12.5 mg Shift Summary 01/08/18 04:02 Shift Summary by Shemar Byers Addendum entered by Shemar Byers R.N. 01/08/18 04:47: 1 small, soft BM Original Note: No complaints of nausea this shift. 1mg dilaudid admin x1 for abdominal pain. Receiving scheduled Ofirmev as well. Administered 1mg ativan x1. No BM this shift, but pt states she has experienced lots of gas. Bowel sounds active. Evening dose of MOM did not make pt nauseous. Was able to eat sandwich and soup around midnight with no N/V. Up ad rainer in room w/FWW. Initialized on 01/08/18 04:02 - END OF NOTE
[2018-01-08] MEDS ORDERED: HEPARIN SODIUM,PORCINE/PF 500 UNIT/5 ML SYRINGE IV ONE ×2 (13:01→13:14)
== END 2018-01-08 13:44 | disposition home or self-care (01) | DRG 389 ==
LOC: ED 06:05 → MEDSUR 14:30
PROVIDERS: ADMIT Family Medicine Adult Medicine; ATTEND Family Medicine Adult Medicine

== ENCOUNTER 2018-07-02 15:04 | Inpatient (IN) ==
[2018-07-02] MEDS ORDERED: ONDANSETRON 4 MG/2 ML VIAL IV ONE ×2 (15:41→17:47)
[2018-07-02] MEDS ORDERED: HYDROmorphone 2 MG/ML VIAL IV SCH (15:45)
[2018-07-02 16:25] LABS: Basophils # (Auto) 0 K/mcL (0.0-0.3); Basophils % (Auto) 0.4 % (0.0-2.0); Eosinophils # (Auto) 0 K/mcL (0.0-0.7); Eosinophils % (Auto) 0.3 % (0.0-7.0); Granulocytes % (Auto) 79.3 % (38.0-78.0); Lymphocytes # (Auto) 1.7 K/mcL (1.5-4.8); Lymphocytes % (Auto) 15.4 % (15.5-49.0); Mean Cell Volume 82.4 fL (80.0-100.0); Mean Corpuscular HGB Conc 32.6 g/dL (31.0-36.0); Mean Corpuscular Hemoglobin 26.9 pg (26.0-34.0); Monocytes # (Auto) 0.5 K/mcL (0.1-0.9); Monocytes % (Auto) 4.6 % (1.0-12.0); Platelet Count 393 K/mcL (140-440); RBC 5.18 M/mcL (4.00-5.20); Red Cell Distribution Width 15.7 % (11.5-14.5)
[2018-07-02] MEDS: HYDROmorphone 2 MG/ML VIAL IV PRN ×3 (16:39→21:26)
[2018-07-02 16:49] LABS: ALT/SGPT 17 U/l (0-40); Albumin/Globulin Ratio 1.1 (1.0-2.3); Alkaline Phosphatase 71 U/L (39-117); Blood Urea Nitrogen 18 mg/dl (6-20)
--- NOTE | 2018-07-02 17:11 | Emergency Department Note ---
Abdominal Pain HPI - General Chief Complaint: Abdominal Pain Stated Complaint: Reports Bowel obs Time Seen by Provider: 07/02/18 15:35 Source: patient Mode of arrival: wheelchair - History of Present Illness HPI Narrative: 57-year-old female presents with abdominal pain for the last 3 days and believe she has a bowel obstruction. She has a bowel obstruction frequently and this is hot presents. She has had no stool out of her ostomy other than one little hard palate since Saturday so at least 3 and half days. She has also been having progressive abdominal pain over the last 3 days and much worse last couple hours. No fever chills. She does have nausea but no vomiting or diarrhea. States she had a colostomy placed back in September and she has never had a takedown because she keeps getting obstructions. Associated symptoms: Reports: nausea. Denies: vomiting, diarrhea, fever, chills , constipation, dysuria, anorexia, syncope - Related Data Home Medications Medication Instructions Recorded Confirmed DULoxetine [Cymbalta] 30 mg PO BID 11/30/16 07/02/18 Levothyroxine [Synthroid] 250 mcg PO QAMAC 08/20/17 07/02/18 Acetaminophen W/Codeine #3 2 cap PO Q4-6HP PRN 09/18/17 07/02/18 [Tylenol #3] Calcium Carbonate 1,200 mg PO BID 09/18/17 07/02/18 Naproxen (Pp) [Aleve (Pp)] 2 tab PO BID PRN 09/18/17 07/02/18 Polyethylene Glycol 3350 [Miralax] 17 gm PO BID 09/18/17 07/02/18 calcitriol 0.25 mcg capsule 0.5 mcg PO TID cap 11/05/17 07/02/18 nitroglycerin 0.4 mg sublingual 0.4 mg SUBLINGUAL Q5M PRN 11/05/17 07/02/18 tablet omeprazole 20 mg capsule,delayed 20 mg PO BID 11/05/17 07/02/18 release Previous Rx's Medication Instructions Recorded predniSONE [Prednisone] 20 mg PO QAC #4 tab 05/18/16 Lisinopril [Zestril] 20 mg PO BID #60 tab 12/06/17 Promethazine [Phenergan] 25 mg AR Q4HP PRN #30 supp.rect 01/08/18 Allergies Allergy/AdvReac Type Severity Reaction Status Date / Time Sulfa (Sulfonamide Allergy Severe Anaphylaxis Verified 07/02/18 15:11 Antibiotics) adhesive tape Allergy Blister Verified 07/02/18 15:12 metoclopramide [From Reglan] AdvReac Intermediate Anxiety Verified 07/02/18 15: 11 steri strips Allergy Severe Blister Uncoded 03/17/18 11:09 Review of Systems All systems ED: reviewed and negative except as stated. Abdominal Pain PMH - Past Medical History [facility] Narrative: Medical History (Last Reviewed 03/17/18 @ 11:10 by Jayla Hay CMA) Foot sprain (Acute) Anaphylaxis (Acute) Adverse reaction to drug (Acute) Severe sepsis (Acute) Pyelonephritis (Acute) Pneumonia (Acute) Myasthenia gravis (Acute) Polyglandular autoimmune syndrome (Chronic) Sarcoidosis (Acute) Achalasia and cardiospasm (Acute) Hypothyroidism (Acute) UTI (urinary tract infection) (Acute) Infiltrate of lung present on imaging of chest (Acute) Past Surgical History (Last Reviewed 03/17/18 @ 11:10 by Jayla Hay CMA) History of exploratory laparotomy (Acute) History of exploratory laparotomy (Acute) Medical history: Reports: COPD, hypertension, hypothyroidism, other (Connective tissue diseases: Sjogren's, sarcoidosis, myasthenia gravis. Achalasia. Small bowel obstructions. 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 SVT.). Denies: cancer, CVA, DM, myocardial infarction Psychiatric history: Reports: anxiety, depression [employer] history: Reports: non-contributory Family history: Reports: other (2 aunts with double mastectomy for cancer. Uncle with brain cancer. Mother with diabetes. Both parents of myocardial infarctions in their 50s.) - Social History Smoking status: Never smoker Alcohol use: Reports: None Drug use: Reports: none. Denies: marijuana Physical Exam Limitations: no limitations General appearance: alert, in no apparent distress, obese Head: atraumatic, normocephalic, normal inspection Eye: Present: normal appearance. Absent: conjunctival injection ENT: normal oropharynx, mucous membranes moist Chest: Present: symmetric chest wall rise Respiratory: Present: normal lung sounds bilaterally. Absent: respiratory distress, wheezes, accessory muscle use Cardiovascular: Present: regular rate, normal heart sounds Abdominal: Present: soft, distention, tenderness (Mild diffuse abdominal tenderness), hypoactive bowel sounds, other (Ostomy site with empty bag other than scant old drainage). Absent: mass Extremities: Present: normal inspection Neurological: Present: alert, oriented X3 Psychiatric: Present: normal affect, normal mood Skin: Present: warm, dry, intact, normal color Course Course Narrative: At 1752 I did speak with the surgeon on-call, Dr. Currie who agrees to see and admit the patient. I will go ahead and put in holding orders for this patient. Vital Signs Temperature 97.8 F 07/02/18 15:05 Pulse Rate 125 H 07/02/18 15:05 Respiratory Rate 16 07/02/18 15:05 Blood Pressure 115/73 07/02/18 15:05 Pulse Oximetry (%) 96 07/02/18 15:05 Temperature 97.8 F 07/02/18 15:05 Pulse Rate 111 H 07/02/18 17:38 Respiratory Rate 16 07/02/18 15:05 Blood Pressure 126/80 07/02/18 17:38 Pulse Oximetry (%) 96 07/02/18 17:38 Abdominal Pain - Lab Data Lab results reviewed: Yes I reviewed the patient's lab results. Result diagrams: 07/02/18 16:01 07/02/18 16:01 Lab Results 07/02/18 07/02/18 Range/Units 16:01 16:01 WBC 11.3 H (4.5-11.0) K/mcL RBC 5.18 (4.00-5.20) M/mcL Hgb 13.9 (12.0-15.0) g/dL Hct 42.7 (36.0-48.0) % MCV 82.4 (80.0-100.0) fL MCH 26.9 (26.0-34.0) pg MCHC 32.6 (31.0-36.0) g/dL RDW 15.7 H (11.5-14.5) % Plt Count 393 (140-440) K/mcL MPV 7.6 (7.4-10.4) fL Gran % 79.3 H (38.0-78.0) % Lymph % (Auto) 15.4 L (15.5-49.0) % Pettis % (Auto) 4.6 (1.0-12.0) % Eos % (Auto) 0.3 (0.0-7.0) % Baso % (Auto) 0.4 (0.0-2.0) % Gran # 9.0 H (1.8-8.0) K/mcL Lymph # (Auto) 1.7 (1.5-4.8) K/mcL Pettis # (Auto) 0.5 (0.1-0.9) K/mcL Eos # (Auto) 0 (0.0-0.7) K/mcL Baso # (Auto) 0 (0.0-0.3) K/mcL Sodium 132 L (133-145) mmol/L Potassium 4.4 (3.3-5.1) mmol/L Chloride 82 L (96-108) mmol/L Carbon Dioxide 34 H (22-30) mmol/L Anion Gap 16.0 (8-16) BUN 18 (6-20) mg/dl Creatinine 1.1 (0.6-1.1) mg/dl GFR Calculation 56 Glucose 234 H (70-105) mg/dL Calcium 9.2 (8.6-10.4) mg/dl Total Bilirubin 0.3 (0.0-1.0) mg/dL AST 16 (0-37) U/l ALT 17 (0-40) U/l Alkaline Phosphatase 71 (39-117) U/L Total Protein 7.5 (5.9-8.4) gm/dL Albumin 4.0 (3.2-5.2) gm/dL Globulin 3.5 (2.2-3.7) gm/dL Albumin/Globulin Ratio 1.1 (1.0-2.3) - Radiology Data Radiology results reviewed: Yes I reviewed the patient's radiology results. Disposition Pt seen by INVENTORY TECHNICIAN/PA only: No Clinical Impression: Abdominal pain, Bowel obstruction, Nausea Disposition: Xfer As Inpt ([facility]) Condition: Fair Referrals: Douglas Haque MD [Primary Care Provider] - Bertha Currie MD [Physician] - Time of Disposition: 17:52
--- NOTE | 2018-07-02 17:14 | XRay Report ---
CLINICAL INFORMATION: no stool from ostomy, abd pain. History of small bowel obstruction COMPARISON: 01/07/2018 FINDINGS: There is a large amount stool throughout the colon which is only minimally dilated. Scattered air-fluid levels seen within minimally dilated small bowel. No free air or soft tissue mass. IMPRESSION: Nonsedating stool gas pattern. This could represent ileus versus recurrent bowel obstruction. Consider abdomen and pelvis CT Interpreted and Authenticated by: All Lundberg 07/02/18
--- NOTE | 2018-07-02 17:54 | Emergency Department Note ---
ED Note Addendum Note Addendum: Patient evaluated and laboratory tests reviewed and x-rays. agree with a consult with Dr. Currie and patient to be admitted
[2018-07-02] MEDS ORDERED: ONDANSETRON 4 MG/2 ML VIAL IV PRN (17:55)
[2018-07-02] MEDS: 0.9 % SODIUM CHLORIDE 1,000 ML IV SCH (17:57)
[2018-07-02] MEDS ORDERED: PANTOPRAZOLE 40 MG VIAL IV ONE (18:05)
--- NOTE | 2018-07-02 18:25 | Emergency Department Note ---
ED Note Addendum Note Addendum: Dr. Lundberg has reviewed the x-rays states that there is a hernia into the stoma was any obstruction. Dr. Currie has been contacted and given the report at 1820
--- NOTE | 2018-07-02 18:46 | Cat Scan Report ---
CLINICAL INFORMATION: Abdominal pain, distention and nausea. History of partial sigmoid colectomy, Baez's pouch creation and descending colon swung into a left lower quadrant colostomy COMPARISON: An abdomen and pelvic CT one month prior - 06/02/2018. TECHNIQUE: Following enteric contrast, 80 cc of Isovue-300 were injected intravenously, and 60 seconds later, 0.625 mm helical slices were obtained from the mid heart through the subtrochanteric regions. Following reconstruction, 2.5 mm sagittal, coronal and axial reformatted images were processed and reviewed at bone, lung and soft tissue windows. Five minutes later, 0.625 mm helical slices were obtained from the mid heart through the kidneys and viewed at soft tissue windows.The exam was performed using radiation dose optimization techniques including, but not limited to, automated exposure control, adjustment of the mA and/or kV according to patient size and use of iterative reconstruction technique. FINDINGS: Lung bases show no abnormality - no effusion. The visualized heart is grossly normal in size and configuration. Esophagus is markedly dilated to the level of the GE junction ostensibly due to a stricture. A small diverticulum projects from the posterior wall of the gastric fundus. Images through the abdomen show minimal fatty change within the liver - no focal hepatic lesions. The gallbladder is surgically absent. Common bile duct is normal in caliber for post cholecystectomy: 7 mm. There is moderate, yet stable pancreatic atrophy with fat replacement of the pancreatic head, neck and proximal body. Both kidneys, adrenal glands, spleen and aorta, including aortic branches, are normal in size, configuration and attenuation without focal lesion. Images through the pelvis show urinary bladder, uterus and region of the ovaries to be normal in size configuration and attenuation. Partial sigmoid colectomy with Baez's pouch region again noted. The distal descending colon has been swung into a left lower quadrant colostomy as previously seen. On today's study, a moderate (9 cm) peristomal hernia consisting of distal ileal loops is seen in the left lower quadrant ostomy. The herniated small bowel loops also extrinsically compresses the distal descending colon within the ostomy resulting in a distal colonic obstruction. The proximal small bowel is moderately dilated and the terminal ileum, distal to the hernia, is decompressed as expected. Both the hernia entry and exit sites show constriction of the small bowel. There is a moderate amount of stool within the ascending, transverse and proximal descending colon due to the second distal colonic obstruction at the ostomy site.. There is no evidence of bowel wall thickening or fluid third spacing to suggest ischemia. No free air to suggest perforation. Bone windows show moderate broad L4-5 disc protrusion resulting in severe right and moderate left IV foraminal narrowing impinging exiting left L4 nerve root. No focal osseous lesions. IMPRESSION: 1. Partial sigmoid colectomy, Baez's pouch creation with the distal descending colon swung into a left lower quadrant colostomy. On today's study, there is a moderate sized peristomal hernia consisting of multiple distal ileal loops which has resulted in a high-grade partial small bowel obstruction. This peristomal hernia also extrinsically compresses the distal descending colon, within the ostomy, resulting in a second obstruction in the distal colon. There is no evidence of strangulation/ischemia or bowel perforation. 2. Moderate esophageal dilatation likely due to a stricture at the GE junction. Consider upper endoscopy 3. Moderate pancreatic atrophy - stable Interpreted and Authenticated by: All Lundberg 07/02/18
--- NOTE | 2018-07-02 20:43 | General Surg History&Physical ---
History of Present Illness Patient information: Note initiated : 07/02/18 at 8:42 pm Service Date, if different from initiated Date: [] Patient: Dayanna Stephens a 57 y/o F admitted on 07/02/18 for Reports Bowel obs. Chief Complaint: [Recurrent abdominal pain and bowel obstruction] HPI: Ms. Stephens is a 57 year old F with history of chronic recurrent obstruction of small bowel and colon. She also has had severe constipation associated with chronic intestinal pseudoobstruction and chronic narcotic use. She states that her last bowel movement was 4 days prior to admission. She has had increasing abdominal pain and increasing distention. Because of this, she has used more narcotics and her symptoms have become worse. She was seen in the emergency room and was noted to have dilated small bowel with massive amount of stool in her colon extending from her cecum around to her ostomy. There was evidence of parastomal hernia, which may be the site of obstruction. The patient states that she had air in her colostomy bag on yesterday, but none since that time. She has not had nausea and vomiting. Review of Systems - Constitutional fatigue, headache(s), malaise, night sweats, weakness, weight gain - EENT Nose, mouth and throat: dizziness, headache(s) - Cardiovascular dyspnea on exertion, palpatations, rapid heart rate - Respiratory dyspnea on exertion - Gastrointestinal abdominal pain, bloating, change in bowel habits, constipation, heartburn, nausea - Genitourinary Genitourinary: difficulty urinating - Musculoskeletal arthralgias, joint swelling, muscle weakness, myalgias, stiffness - Integumentary no bleeding lesions, no changing lesions, no pruritus, no rash - Neurological headache(s), no confusion - Psychiatric depression - Endocrine excessive sweating, heat intolerance, palpitations - Hematologic/Lymphatic no easy bleeding, no easy bruising, no lymphadenopathy - Allergic/Immunologic no tongue swelling, no throat swelling, no uticaria, no wheezing, no lip swelling Past History Past medical history: Chronic obstructive lung disease. Sjogren's syndrome. Chronic intestinal pseudoobstruction. Hypothyroidism. Osteoarthritis. History of achalasia. Myasthenia gravis. History of sarcoidosis Past surgical history: Exploratory laparotomy with lysis of adhesions 2. Sigmoid colectomy with colostomy. Umbilical hernia repair. Heller myotomy with toupee fundoplication. Left knee meniscectomy. Cholecystectomy Past family history: Coronary artery disease Past social history: . Former smoker. Social drinker. Denies drug use Medications and Allergies Home Medications Medication Instructions Recorded Confirmed Type predniSONE [Prednisone] 20 mg PO QAMCC #4 tab 05/18/16 07/02/18 Rx DULoxetine [Cymbalta] 30 mg PO BID 11/30/16 07/02/18 History Levothyroxine [Synthroid] 250 mcg PO QAMAC 08/20/17 07/02/18 History Acetaminophen W/Codeine #3 2 cap PO Q4-6HP PRN 09/18/17 07/02/18 History [Tylenol #3] Calcium Carbonate 1,200 mg PO BID 09/18/17 07/02/18 History Naproxen (Pp) [Aleve (Pp)] 2 tab PO BID PRN 09/18/17 07/02/18 History Polyethylene Glycol 3350 [Miralax] 17 gm PO BID 09/18/17 07/02/18 History calcitriol 0.25 mcg capsule 0.5 mcg PO TID cap 11/05/17 07/02/18 History nitroglycerin 0.4 mg sublingual 0.4 mg SUBLINGUAL Q5M PRN 11/05/17 07/02/18 History tablet omeprazole 20 mg capsule,delayed 20 mg PO BID 11/05/17 07/02/18 History release Lisinopril [Zestril] 20 mg PO BID #60 tab 12/06/17 07/02/18 Rx Promethazine [Phenergan] [address] Q4HP PRN #30 supp.rect 01/08/18 07/02/18 Rx Allergies Allergy/AdvReac Type Severity Reaction Status Date / Time Sulfa (Sulfonamide Allergy Severe Anaphylaxis Verified 07/02/18 15:11 Antibiotics) adhesive tape Allergy Blister Verified 07/02/18 15:12 metoclopramide [From Reglan] AdvReac Intermediate Anxiety Verified 07/02/18 15: 11 steri strips Allergy Severe Blister Uncoded 03/17/18 11:09 Exam Temp Pulse Resp BP Pulse Ox 97.8 F 108 H 16 121/76 93 07/02/18 15:05 07/02/18 18:32 07/02/18 15:05 07/02/18 18:32 07/02/18 18:32 - General physical appearance well developed, well nourished, moderate distress, moderate pain, obese - Eyes PERRL, normal ocular movement - ENT normal pinna, normal nares, normal mucosa, no hearing loss, no congestion - Head Head exam IM: Present: atraumatic, normocephalic - Neck no masses, no bruits, trachea midline, no lymphadectomy, no venous distension - Cardiovascular Cardiovascular exam IM: Present: normal rate and rhythm - Respiratory normal expansion, normal respiratory effort, clear to percussion, clear to auscultation - Abdomen Abdomen: Present: soft, tender (tenderness and mid abdomen and in the left flank ; active bowel sounds; stoma left lower quadrant without evidence of obstruction up to abdominal wall by digital evaluation; parastomal hernia), bowel sounds Hernia: Present: none - Genitourinary Present: normal external genitalia - Integumentary Present: no rash, no growths, no abnormal pigmentation - Neurologic Present: normal coordination, normal sensation - Musculoskeletal Present: normal gait, normal posture - Psychiatric Present: oriented to time, oriented to person, oriented to place, speech is normal, memory intact Assessment and Plan (1) Chronic intestinal pseudo-obstruction Status: Acute (2) Constipation due to neurogenic bowel Relistor 12 mg subcutaneous daily 3. Small bowel follow-through in the morning. Milk of magnesia 4 doses. MiraLAX 6 doses Status: Acute (3) Hypertension Continue home medications Status: Chronic Qualifiers: (4) Polyglandular autoimmune syndrome Status: Chronic
[2018-07-02] MEDS: MAGNESIUM HYDROXIDE 30 ML ORAL.SUSP PO SCH (21:26)
[2018-07-02] MEDS: LISINOPRIL 20 MG TABLET PO SCH (21:26)
[2018-07-02] MEDS: DULoxetine 30 MG CAPSULE PO SCH (21:26)
[2018-07-02] MEDS: CALCITRIOL 0.25 MCG CAPSULE PO SCH (21:26)
[2018-07-02] MEDS: POLYETHYLENE GLYCOL 3350 17 GM PACKET PO SCH (21:26)
[2018-07-02] MEDS: METHYLNALTREXONE BROMIDE 12 MG/0.6 ML VIAL SQ SCH (22:43)
[2018-07-03] MEDS: POLYETHYLENE GLYCOL 3350 17 GM PACKET PO SCH ×4 (00:20→13:17)
[2018-07-03] MEDS: 0.9 % SODIUM CHLORIDE 1,000 ML IV SCH ×4 (00:20→20:25)
[2018-07-03] MEDS: MAGNESIUM HYDROXIDE 30 ML ORAL.SUSP PO SCH ×3 (00:20→08:46)
[2018-07-03] MEDS: HYDROmorphone 2 MG/ML VIAL IV PRN ×7 (02:10→22:10)
[2018-07-03] MEDS: PANTOPRAZOLE 40 MG VIAL IV SCH (07:04)
[2018-07-03] MEDS: predniSONE 20 MG TABLET PO SCH (07:05)
[2018-07-03] MEDS: LEVOTHYROXINE 125 MCG TABLET PO SCH (07:05)
[2018-07-03] MEDS: CALCITRIOL 0.25 MCG CAPSULE PO SCH ×3 (08:46→20:26)
[2018-07-03] MEDS: LISINOPRIL 20 MG TABLET PO SCH ×2 (08:46→20:26)
[2018-07-03] MEDS: DULoxetine 30 MG CAPSULE PO SCH ×2 (08:46→20:26)
[2018-07-03] MEDS: METHYLNALTREXONE BROMIDE 12 MG/0.6 ML VIAL SQ SCH (11:10)
[2018-07-03] MEDS ORDERED: DIATRIZOATE MEGLU/DIATRIZO SOD 30 ML BOTTLE PO ONE (12:40)
--- NOTE | 2018-07-03 12:52 | XRay Report ---
CLINICAL INFORMATION: Small bowel peristomal hernia in the left lower quadrant resulting in partial small bowel obstruction and distention COMPARISON: Abdomen and pelvic CT from 07/02/2018 FINDINGS: Dilute water-soluble Gastrografin was administered orally. A total of 0.8 L were ingested. Serial abdominal images were obtained over four hours The stomach, duodenum, jejunum and proximal ileum are moderately dilated to the level of the known peristomal hernia which entraps the mid ileum in the left lower quadrant. There is no enteric contrast admitted past the hernia: the terminal ileum and colon remain unopacified on the four-hour film. IMPRESSION: High-grade small bowel obstruction at the mid ileal level due to a known peristomal hernia in the left lower quadrant Interpreted and Authenticated by: All Lundberg 07/03/18
[2018-07-03 15:56] LABS: T4 (Thyroxine) 11.1 ug/dl (5.0-12.0)
--- NOTE | 2018-07-03 16:21 | General Surgery Progress Note ---
Subjective Patient reports: still having pain, no flatus, no bowel movement, nausea, afebrile Narrative: Note initiated : 07/03/18 at 4:19 pm Service Date, if different from initiated Date: [] Patient: Dayanna Stephens 57 y/o F admitted on 07/02/18 for Reports Bowel Obstruction. Chief Complaint: [patient is having slightly more pain in the peristomal area. A small bowel follow-through was done and this shows that contrast his obstructed in the peristomal hernia. She has had a small amount of flatus but no bowel movement through the stoma. Discussed the probability that she will need exploration in the morning If she does not decompress During the night.] Objective Temp Pulse Resp BP Pulse Ox 96.8 F L 77 18 119/77 78 L 07/03/18 16:00 07/03/18 16:00 07/03/18 16:00 07/03/18 16:00 07/03/18 16:00 - Additional Data Intake & Output - Last 24 hours: Intake & Output 07/01/18 07/02/18 07/03/18 07/04/18 05:59 05:59 05:59 05:59 Intake Total 885 / 885 1480 / 1480 Output Total 200 / 200 Balance 685 / 685 1480 / 1480 Weight 253 lb 8 oz 253 lb 8 oz - General physical appearance moderate distress, moderate pain - ENT normal pinna, normal nares, normal mucosa, no hearing loss, no congestion - Neck no masses, no bruits, trachea midline, no lymphadectomy, no venous distension - Respiratory normal expansion, normal respiratory effort, clear to percussion, clear to auscultation - Cardiovascular Cardiovascular exam: Present: normal rate and rhythm, RRR, +S1, +S2. Absent: JVD, tachycardia - Abdomen tender (tenderness around stoma in left lower quadrant with a palpable gas and bowel around stoma; stoma can be digitally evaluated beneath the fascia and is patent), bowel sounds (present), surgical scars (none), masses (none) - Integumentary no rash, no growths, no abnormal pigmentation - Neurologic normal coordination, normal sensation - Musculoskeletal normal gait, normal posture - Psychiatric oriented to time, oriented to person, oriented to place, speech is normal, memory intact - Labs 07/02/18 16:01 07/02/18 16:01 Diabetes panel 07/02/18 Range/Units 16:01 Sodium 132 L (133-145) mmol/L Potassium 4.4 (3.3-5.1) mmol/L Chloride 82 L (96-108) mmol/L Carbon Dioxide 34 H (22-30) mmol/L BUN 18 (6-20) mg/dl Creatinine 1.1 (0.6-1.1) mg/dl Glucose 234 H (70-105) mg/dL Calcium 9.2 (8.6-10.4) mg/dl AST 16 (0-37) U/l ALT 17 (0-40) U/l Alkaline Phosphatase 71 (39-117) U/L Total Protein 7.5 (5.9-8.4) gm/dL Albumin 4.0 (3.2-5.2) gm/dL Thyroid panel 07/03/18 Range/Units 15:06 TSH 0.17 L (0.27-5.01) uIU/ml Thyroxine (T4) 11.1 (5.0-12.0) ug/dl Calcium panel 07/02/18 Range/Units 16:01 Calcium 9.2 (8.6-10.4) mg/dl Albumin 4.0 (3.2-5.2) gm/dL Pituitary panel 07/02/18 07/03/18 Range/Units 16:01 15:06 Sodium 132 L (133-145) mmol/L Potassium 4.4 (3.3-5.1) mmol/L Chloride 82 L (96-108) mmol/L Carbon Dioxide 34 H (22-30) mmol/L BUN 18 (6-20) mg/dl Creatinine 1.1 (0.6-1.1) mg/dl Glucose 234 H (70-105) mg/dL Calcium 9.2 (8.6-10.4) mg/dl TSH 0.17 L (0.27-5.01) uIU/ml Thyroxine (T4) 11.1 (5.0-12.0) ug/dl Adrenal panel 07/02/18 Range/Units 16:01 Sodium 132 L (133-145) mmol/L Potassium 4.4 (3.3-5.1) mmol/L Chloride 82 L (96-108) mmol/L Carbon Dioxide 34 H (22-30) mmol/L BUN 18 (6-20) mg/dl Creatinine 1.1 (0.6-1.1) mg/dl Glucose 234 H (70-105) mg/dL Calcium 9.2 (8.6-10.4) mg/dl Total Bilirubin 0.3 (0.0-1.0) mg/dL AST 16 (0-37) U/l ALT 17 (0-40) U/l Alkaline Phosphatase 71 (39-117) U/L Total Protein 7.5 (5.9-8.4) gm/dL Albumin 4.0 (3.2-5.2) gm/dL Assessment and Plan (1) Chronic intestinal pseudo-obstruction Status: Acute Assessment and plan: Continue to follow until the a.m. If no evacuation by the a.m. Will proceed with exploration and reduction of small bowel obstruction at the level of the stoma.. Current Visit: No (2) Constipation due to neurogenic bowel Status: Acute Current Visit: Yes (3) Hypertension Status: Chronic Current Visit: No (4) Polyglandular autoimmune syndrome Status: Chronic Current Visit: No - Time Spent With Patient Total time spent is greater than 50% in coordination of care (as documented) at patient's floor/unit and/or counseling patient:
[2018-07-03] MEDS: metroNIDAZOLE 500 MG/100 ML BAG IV SCH (17:13)
[2018-07-03] MEDS: PIPERACILLIN SODIUM/TAZOBACTAM 3.375 GM in DEXTROSE 5% IN WATER 50 ML IV SCH (18:27)
[2018-07-04] MEDS: metroNIDAZOLE 500 MG/100 ML BAG IV SCH ×4 (00:51→18:16)
[2018-07-04] MEDS: PIPERACILLIN SODIUM/TAZOBACTAM 3.375 GM in DEXTROSE 5% IN WATER 50 ML IV SCH ×5 (00:51→23:35)
[2018-07-04] MEDS: 0.9 % SODIUM CHLORIDE 1,000 ML IV SCH ×4 (05:05→18:14)
[2018-07-04] MEDS: HYDROmorphone 2 MG/ML VIAL IV PRN ×3 (05:06→19:00)
[2018-07-04] MEDS ORDERED: NALOXONE HCL 0.4 MG/ML VIAL IV ONE (06:43)
[2018-07-04] MEDS: PANTOPRAZOLE 40 MG VIAL IV SCH (06:50)
[2018-07-04] MEDS: LEVOTHYROXINE 125 MCG TABLET PO SCH (06:50)
[2018-07-04] MEDS: predniSONE 20 MG TABLET PO SCH (06:50)
[2018-07-04] MEDS ORDERED: NALOXONE HCL 0.4 MG/ML VIAL ONE (06:53)
[2018-07-04] MEDS ORDERED: ACETAMINOPHEN 1,000 MG/100 ML BOTTLE IV PRN (07:44)
[2018-07-04] MEDS ORDERED: 0.9 % SODIUM CHLORIDE 1,000 ML IV ONE (07:59)
[2018-07-04] MEDS ORDERED: NALOXONE HCL 0.4 MG/ML VIAL IV PRN (07:59)
[2018-07-04] MEDS: LISINOPRIL 20 MG TABLET PO SCH (08:01)
[2018-07-04] MEDS: CALCITRIOL 0.25 MCG CAPSULE PO SCH (08:01)
[2018-07-04] MEDS: DULoxetine 30 MG CAPSULE PO SCH (08:01)
[2018-07-04] MEDS ORDERED: POLYETHYLENE GLYCOL 3350 17 GM PACKET PO SCH (09:00)
[2018-07-04] MEDS: METHYLNALTREXONE BROMIDE 12 MG/0.6 ML VIAL SQ SCH (09:09)
[2018-07-04 09:43] LABS: Basophils # (Auto) 0 K/mcL (0.0-0.3); Basophils % (Auto) 0 % (0.0-2.0); Eosinophils # (Auto) 0.1 K/mcL (0.0-0.7); Eosinophils % (Auto) 0.6 % (0.0-7.0); Granulocytes % (Auto) 83.7 % (38.0-78.0); Lymphocytes # (Auto) 1.4 K/mcL (1.5-4.8); Lymphocytes % (Auto) 7.4 % (15.5-49.0); Mean Cell Volume 84.1 fL (80.0-100.0); Mean Corpuscular HGB Conc 32.6 g/dL (31.0-36.0); Mean Corpuscular Hemoglobin 27.4 pg (26.0-34.0); Monocytes # (Auto) 1.5 K/mcL (0.1-0.9); Monocytes % (Auto) 8.3 % (1.0-12.0); Platelet Count 315 K/mcL (140-440); RBC 4.09 M/mcL (4.00-5.20); Red Cell Distribution Width 16.2 % (11.5-14.5)
--- NOTE | 2018-07-04 10:00 | XRay Report ---
CLINICAL INFORMATION: High-grade small bowel obstruction due to a peristomal hernia of the distal ileum COMPARISON: Small bowel follow-through study one day prior - 07/03/2018 FINDINGS: Most of the contrast, administered from the previous day small bowel follow-through study, is retained within the peristomal hernia sac in the left lower quadrant. The stomach and small bowel remain moderately dilated. Modest contrast now seen within the colon IMPRESSION: High-grade small bowel obstruction of the mid ileum due to left lower quadrant peristomal hernia. There is contrast admitted within the colon since yesterday's study Interpreted and Authenticated by: All Lundberg 07/04/18
[2018-07-04 10:29] LABS: ALT/SGPT 13 U/l (0-40); Albumin 3.1 gm/dL (3.2-5.2); Albumin/Globulin Ratio 1.1 (1.0-2.3); Alkaline Phosphatase 84 U/L (39-117); Blood Urea Nitrogen 33 mg/dl (6-20)
--- NOTE | 2018-07-04 10:29 | General Surgery Progress Note ---
Subjective Patient reports: still having pain, bowel movement, nausea, afebrile Narrative: Note initiated : 07/04/18 at 10:26 am Service Date, if different from initiated Date: [] Patient: Dayanna Stephens 57 y/o F admitted on 07/02/18 for Reports Bowel Obstruction. Chief Complaint: [patient had pain throughout the night and received multiple doses of Dilaudid. She was heavily sedated this morning about 0600 and was given 0.1 mg of Narcan increase in mental status and increase in blood pressure. She was given 500 cc bolus of normal saline and another dose of Narcan.. Her blood pressures are still low and she still tachycardic. Abdominal x-ray shows dilated small bowel loops with some contrast in the colon , but still with high-grade obstruction. Patient is counseled for exploratory laparotomy, in spite of the fact that she is having some output through her stoma. a BUN and creatinine are increased, so she will be given increased volume.] Objective Temp Pulse Resp BP Pulse Ox 98.9 F 115 H 16 79/40 91 07/04/18 06:40 07/04/18 04:00 07/04/18 06:40 07/04/18 06:40 07/04/18 06:40 - Additional Data Intake & Output - Last 24 hours: Intake & Output 07/02/18 07/03/18 07/04/18 07/05/18 05:59 05:59 05:59 05:59 Intake Total 885 / 885 3830 / 3830 1250 / 1250 Output Total 200 / 200 300 / 300 Balance 685 / 685 3530 / 3530 1250 / 1250 Weight 253 lb 8 oz 255 lb 8 oz - General physical appearance severe distress, severe pain, chronically ill - Eyes PERRL, normal ocular movement - ENT normal pinna, normal nares, normal mucosa, no hearing loss, no congestion - Neck no masses, no bruits, trachea midline, no venous distension - Respiratory normal expansion, normal respiratory effort, clear to percussion, clear to auscultation - Cardiovascular Cardiovascular exam: Present: normal rate and rhythm, +S1, +S2, tachycardia. Absent: JVD - Abdomen tender (distended, diffusely tender abdomen with hyperactive bowel sounds, guarding, stoma in left lower quadrant with soft stool) - Integumentary no rash, no growths, no abnormal pigmentation - Neurologic normal coordination, normal sensation - Musculoskeletal normal gait, normal posture - Psychiatric other (. Patient is listless and somnolent but is appropriate when awakened) - Labs 07/04/18 06:47 07/04/18 06:47 Diabetes panel 07/04/18 Range/Units 04:05 Sodium TNP Potassium TNP Chloride TNP Carbon Dioxide TNP BUN TNP Creatinine TNP Glucose TNP Calcium TNP AST TNP ALT TNP Alkaline Phosphatase TNP Total Protein TNP Albumin TNP Triglycerides TNP Thyroid panel 07/03/18 Range/Units 15:06 TSH 0.17 L (0.27-5.01) uIU/ml Thyroxine (T4) 11.1 (5.0-12.0) ug/dl Calcium panel 07/04/18 Range/Units 04:05 Calcium TNP Phosphorus TNP Albumin TNP Pituitary panel 07/03/18 07/04/18 Range/Units 15:06 04:05 Sodium TNP Potassium TNP Chloride TNP Carbon Dioxide TNP BUN TNP Creatinine TNP Glucose TNP Calcium TNP TSH 0.17 L (0.27-5.01) uIU/ml Thyroxine (T4) 11.1 (5.0-12.0) ug/dl Adrenal panel 07/04/18 Range/Units 04:05 Sodium TNP Potassium TNP Chloride TNP Carbon Dioxide TNP BUN TNP Creatinine TNP Glucose TNP Calcium TNP Total Bilirubin TNP AST TNP ALT TNP Alkaline Phosphatase TNP Total Protein TNP Albumin TNP Assessment and Plan (1) Chronic intestinal pseudo-obstruction Status: Acute Assessment and plan: The patient has deteriorated over the past few hours and will undergo laparotomy As soon as possible. Current Visit: No (2) Constipation due to neurogenic bowel Status: Acute Current Visit: Yes (3) Hypertension Status: Chronic Assessment and plan: Hold antihypertensive medications Current Visit: No (4) Polyglandular autoimmune syndrome Status: Chronic Current Visit: No - Time Spent With Patient Total time spent is greater than 50% in coordination of care (as documented) at patient's floor/unit and/or counseling patient:
[2018-07-04] MEDS ORDERED: 0.9 % SODIUM CHLORIDE 1,000 ML IV SCH (10:30)
[2018-07-04] MEDS ORDERED: ROCURONIUM 10 MG/ML ML IV ONE (11:15)
[2018-07-04] MEDS ORDERED: KETAMINE 100 MG/ML ML IV ONE (11:15)
[2018-07-04] MEDS ORDERED: MIDAZOLAM 5 MG/5 ML VIAL IV ONE (11:15)
[2018-07-04] MEDS ORDERED: HETASTARCH 6% 500 ML BAG IV ONE (11:15)
[2018-07-04] MEDS ORDERED: ETOMIDATE 20 MG/10 ML VIAL IV ONE (11:15)
[2018-07-04] MEDS ORDERED: fentaNYL 100 MCG/2 ML VIAL IV ONE (11:15)
[2018-07-04] MEDS ORDERED: PHENYLEPHRINE 10 MG/ML VIAL IV ONE (11:15)
[2018-07-04] MEDS ORDERED: LIDOCAINE HCL/PF 100 MG/5 ML SYRINGE IV ONE (11:15)
[2018-07-04] MEDS ORDERED: methylPREDNISolone SOD SUCC 125 MG/2 ML VIAL IV ONE (11:15)
[2018-07-04] MEDS ORDERED: HEPARIN/D5W 500 ML IV ONE (11:46)
[2018-07-04] MEDS ORDERED: BACITRACIN 50,000 UNIT VIAL IR ONE (13:00)
[2018-07-04] MEDS ORDERED: ONDANSETRON 4 MG/2 ML VIAL IV PRN (13:34)
--- NOTE | 2018-07-04 13:36 | Brief Operative Note ---
Date of procedure: 07/04/18 Pre-op diagnosis: small bowel obstruction Post-op diagnosis: other (parastomal hernia with small bowel obstruction) Procedure: exploratory laparotomy with adhesiolysis repair of parastomal hernia with mesh graft Grafts/Implants: Yes (surgimesh) Anesthesia: GETA Findings: dense adhesions large parastomal hernia with obstructed small bowel in hernia pouch diffusely dilated small bowel and colon impaction of stool in distal colon Complications: none Surgeon: Bertha Currie Estimated blood loss (cc): 50 Specimens Removed/Pathology: none sent Condition: stable Disposition: ICU
[2018-07-04] MEDS ORDERED: PROPOFOL 200 MG/20 ML VIAL IV ONE (13:44)
[2018-07-04] MEDS ORDERED: PROPOFOL 100 ML IV ONE (13:52)
[2018-07-04] MEDS ORDERED: HEPARIN/NS 500 ML IV SCH (14:00)
[2018-07-04] MEDS ORDERED: HETASTARCH 6% 30 GM/500 ML BAG IV ONE (14:10)
--- NOTE | 2018-07-04 14:10 | XRay Report ---
CLINICAL INFORMATION: ET tube placement COMPARISON: 06/02/2018 FINDINGS: There is a Port-A-Cath is in stable satisfactory position. Endotracheal tip is in satisfactory position - three centers above the jose miguel. Cardiomediastinal silhouette and pulmonary vessels are normal for technique. A small focal right paramediastinal infiltrate has developed in the right upper lung field IMPRESSION: Small paramediastinal right upper lung infiltrate. Endotracheal tube and Port-A-Cath is in satisfactory position Interpreted and Authenticated by: All Lundberg 07/04/18
[2018-07-04] MEDS ORDERED: DEXTROSE 31 GM ORAL.SUSP PO PRN (14:24)
[2018-07-04] MEDS ORDERED: NOREPINEPHRINE BITARTRATE 8 MG in 0.9 % SODIUM CHLORIDE 242 ML IV PRN (14:24)
[2018-07-04] MEDS ORDERED: DEXTROSE 50% 50 ML VIAL IV PRN (14:24)
[2018-07-04] MEDS ORDERED: HYDROCORTISONE SOD SUCC 100 MG VIAL IV ONE (14:24)
--- NOTE | 2018-07-04 14:31 | Internal Medicine Consult Note ---
Medical - CN: [facility] - Data of Consult Consult date: 07/04/18 Requesting Physician: Bertha Currie MD Primary Care Provider: Douglas Haque Family Provider: Douglas Haque - Consult Narrative Reason for consult: I see management History of present illness: Ms. Stephens is a 57 year old F With a history of bowel obstructions both small and large. She presented to the ER with abdominal pain for 3 days she had no stool out of her ostomy she had nausea but no vomiting. She is found to have a dilated small bowel in the ED and a massive amount of stool in her colon. There is evidence of parastomal hernia which is felt to be the cause of obstruction. Dr. Currie was contacted. She was admitted and monitored with follow-up studies ordered. Patient failed to progress and up needing urgent laparotomy. She was also found to be hypotensive intraoperatively. Given fluid boluses Hespan. She underwent surgical correction today. Patient was left intubated and sent to the ICU afterwards. Review of systems unable to gather as patient is intubated CC: Bertha Currie MD Medical - CN: [facility] Medical history: Medical History (Last Reviewed 03/17/18 @ 11:10 by Jayla Hay CMA) Foot sprain (Acute) Anaphylaxis (Acute) Adverse reaction to drug (Acute) Severe sepsis (Acute) Pyelonephritis (Acute) Pneumonia (Acute) Myasthenia gravis (Acute) Polyglandular autoimmune syndrome (Chronic) Sarcoidosis (Acute) Achalasia and cardiospasm (Acute) Hypothyroidism (Acute) UTI (urinary tract infection) (Acute) Infiltrate of lung present on imaging of chest (Acute) Past Surgical History (Last Reviewed 03/17/18 @ 11:10 by Jayla Hay CMA) History of exploratory laparotomy (Acute) History of exploratory laparotomy (Acute) Medical - CN: Meds Home Medications Medication Instructions Recorded Confirmed Type predniSONE [Prednisone] 20 mg PO QAC #4 tab 05/18/16 07/02/18 Rx DULoxetine [Cymbalta] 30 mg PO BID 11/30/16 07/02/18 History Levothyroxine [Synthroid] 250 mcg PO QAMAC 08/20/17 07/02/18 History Acetaminophen W/Codeine #3 2 cap PO Q4-6HP PRN 09/18/17 07/02/18 History [Tylenol #3] Calcium Carbonate 1,200 mg PO BID 09/18/17 07/02/18 History Naproxen (Pp) [Aleve (Pp)] 2 tab PO BID PRN 09/18/17 07/02/18 History Polyethylene Glycol 3350 [Miralax] 17 gm PO BID 09/18/17 07/02/18 History calcitriol 0.25 mcg capsule 0.5 mcg PO TID cap 11/05/17 07/02/18 History nitroglycerin 0.4 mg sublingual 0.4 mg SUBLINGUAL Q5M PRN 11/05/17 07/02/18 History tablet omeprazole 20 mg capsule,delayed 20 mg PO BID 11/05/17 07/02/18 History release Lisinopril [Zestril] 20 mg PO BID #60 tab 12/06/17 07/02/18 Rx Promethazine [Phenergan] 25 mg ND Q4HP PRN #30 supp.rect 01/08/18 07/02/18 Rx Allergies Allergy/AdvReac Type Severity Reaction Status Date / Time Sulfa (Sulfonamide Allergy Severe Anaphylaxis Verified 07/02/18 15:11 Antibiotics) adhesive tape Allergy Blister Verified 07/02/18 15:12 metoclopramide [From Reglan] AdvReac Intermediate Anxiety Verified 07/02/18 15: 11 steri strips Allergy Severe Blister Uncoded 03/17/18 11:09 Medical - CN: Exam - Constitutional Vitals: Temp Pulse Resp BP Pulse Ox 98.9 F 115 H 16 79/40 93 07/04/18 06:40 07/04/18 04:00 07/04/18 06:40 07/04/18 06:40 07/04/18 08:00 Exam: General: Sedated on vent, no acute Distress HEENT: Pupils sluggish but reactive recently received a paralytic, CV: RRR, No murmurs, normal s1/s2 Pulm: Clear b/l, no wheezing/rhonchi/rales Abd: soft, nontender, +BS x4, obese Ext: no clubbing/cyanosis/edema Neuro: Intubated and sedated. Unable to thoroughly assess given recent paralytics and sedation. Skin: warm/dry Medical - CN: Result - Labs CBC & Chem 7: 07/04/18 06:47 07/04/18 06:47 Labs: Short CBC 07/04/18 07/04/18 Range/Units 04:05 06:47 WBC TNP 18.5 H Hgb TNP 11.2 L Hct TNP 34.4 L Plt Count TNP 315 BMP 07/04/18 07/04/18 04:05 06:47 Sodium TNP 137 Potassium TNP 4.7 Chloride TNP 92 L Carbon Dioxide TNP 31 H BUN TNP 33 H Creatinine TNP 2.7 H Glucose TNP 198 H Calcium TNP 7.9 L Liver Function 07/04/18 07/04/18 Range/Units 04:05 06:47 Total Bilirubin TNP 0.5 Direct Bilirubin TNP GGT TNP AST TNP 13 ALT TNP 13 Alkaline Phosphatase TNP 84 Albumin TNP 3.1 L - ABG Interpretation Interpretation: normal - Imaging and Cardiology Chest x-ray Additional comments: Chest x-ray results reviewed Medical - CN: A/P - Narrative A/P Narrative: A: *Small bowel obstruction status post exploratory laparotomy with lysis of adhesions and repair of parastomal hernia (07/04) *Mechanical ventilation status post surgery: Left intubated after surgery sounds like patient has a history of delayed extubation after surgery *Hypovolemic shock: Secondary to volume depletion with history of chronic glucocorticoid use with associated adrenal suppression. -Required temporary vasopressors *THANIA: 2/2 volume depletion and above *Contraction alkalosis *History of myasthenia gravis and sarcoidosis: On chronic prednisone use 20 mg daily *History of depression *Hypothyroidism *GERD *Hypertension P: -Continue ventilation support with the daily sedation vacations weaning trial -Monitor I's and O's and weights daily -Aggressive IV fluid hydration -Wean off vasopressor -IV glucocorticoids, SSI -Zosyn -Dr. Currie on case -home Blood pressure medications held at this time for low blood pressure -Continue home levothyroxine - -ppx:SCD, chemical per surgery when ok/ppi
[2018-07-04] MEDS: 0.9 % SODIUM CHLORIDE 250 ML IV SCH (14:47)
[2018-07-04 15:15] LABS: Band Neutrophils % 2 % (0-10); Eosinophils % (Manual) 1 % (0-7); Lymphocytes % 11 % (15-49); Monocytes % (Manual) 9 % (1-12); Platelet Estimate NORMAL (NORMAL); RBC Morphology NORMAL (NORMAL); Segmented Neutrophils % 77 % (38-78)
[2018-07-04 16:41] LABS: ALT/SGPT 10 U/l (0-40); Albumin 2.1 gm/dL (3.2-5.2); Albumin/Globulin Ratio 1.1 (1.0-2.3); Alkaline Phosphatase 62 U/L (39-117); Bilirubin,Direct < 0.2 mg/dL (0.0-0.3); Blood Urea Nitrogen 28 mg/dl (6-20); Gamma Glutamyl Transpeptidase 19 U/L (5-36); Uric Acid 5.7 mg/dL (2.5-8.0)
[2018-07-04] MEDS: PROPOFOL 1,000 MG in PREMIX 1 BAG IV SCH (18:24)
[2018-07-04] MEDS: INSULIN LISPRO 1 UNIT/0.01 ML UNIT SQ SCH ×2 (20:45→21:14)
[2018-07-04] MEDS: methylPREDNISolone SOD SUCC 40 MG/ML VIAL IV SCH (20:46)
[2018-07-04] MEDS: MUPIROCIN 2% NASAL OINT 1 GM OINT.TOP NAS SCH (20:47)
[2018-07-04] MEDS: CHLORHEXIDINE GLUCONATE 1 ML ORAL.SOL SWABMOUTH SCH (20:47)
[2018-07-04] MEDS ORDERED: methylPREDNISolone SOD SUCC 40 MG/ML VIAL IV SCH (21:00)
[2018-07-05] MEDS: 0.9 % SODIUM CHLORIDE 1,000 ML IV SCH ×4 (00:04→17:59)
[2018-07-05] MEDS: metroNIDAZOLE 500 MG/100 ML BAG IV SCH ×5 (00:06→23:07)
[2018-07-05] MEDS: PROPOFOL 1,000 MG in PREMIX 1 BAG IV SCH ×4 (00:09→18:41)
[2018-07-05] MEDS: HYDROmorphone 2 MG/ML VIAL IV PRN ×8 (00:21→18:42)
[2018-07-05] MEDS: PIPERACILLIN SODIUM/TAZOBACTAM 3.375 GM in DEXTROSE 5% IN WATER 50 ML IV SCH ×3 (05:48→17:50)
[2018-07-05 05:58] LABS: Basophils # (Auto) 0 K/mcL (0.0-0.3); Basophils % (Auto) 0 % (0.0-2.0); Eosinophils # (Auto) 0 K/mcL (0.0-0.7); Eosinophils % (Auto) 0 % (0.0-7.0); Granulocytes % (Auto) 92.3 % (38.0-78.0); Lymphocytes # (Auto) 0.5 K/mcL (1.5-4.8); Lymphocytes % (Auto) 5.5 % (15.5-49.0); Mean Corpuscular HGB Conc 32.8 g/dL (31.0-36.0); Mean Corpuscular Hemoglobin 27.6 pg (26.0-34.0); Monocytes # (Auto) 0.2 K/mcL (0.1-0.9); Monocytes % (Auto) 2.2 % (1.0-12.0); Platelet Count 257 K/mcL (140-440); RBC 3.27 M/mcL (4.00-5.20); Red Cell Distribution Width 16.4 % (11.5-14.5)
[2018-07-05 06:38] LABS: ALT/SGPT 10 U/l (0-40); Albumin 2.2 gm/dL (3.2-5.2); Alkaline Phosphatase 67 U/L (39-117); Bilirubin,Direct < 0.2 mg/dL (0.0-0.3); Blood Urea Nitrogen 19 mg/dl (6-20); Gamma Glutamyl Transpeptidase 18 U/L (5-36); Uric Acid 4.4 mg/dL (2.5-8.0)
--- NOTE | 2018-07-05 07:22 | Internal Med Progress Note ---
Medical - PN: Subj Patient information: Note initiated : 07/05/18 at 7:14 am Service Date, if different from initiated Date: [] Patient: Dayanna Stephens a 57 y/o F admitted on 07/02/18 for Reports Bowel Obstruction. Chief Complaint: [] Interval history: Ms. Stephens is a 57 year old F With a history of bowel obstructions both small and large. She presented to the ER with abdominal pain for 3 days she had no stool out of her ostomy she had nausea but no vomiting. She is found to have a dilated small bowel in the ED and a massive amount of stool in her colon. There is evidence of parastomal hernia which is felt to be the cause of obstruction. Dr. Currie was contacted. She was admitted and monitored with follow-up studies ordered. Patient failed to progress and up needing urgent laparotomy. She was also found to be hypotensive intraoperatively. Given fluid boluses Hespan. She underwent surgical correction today. Patient was left intubated and sent to the ICU afterwards. 07/05 had some increased ostomy outpt overnight, no acute issues. nods yes to abdominal pain and sore throat from ETT. in room. good UOP. - Constitutional Vitals: Vital Signs Temp Pulse Resp BP Pulse Ox 98.9 F 103 H 11 L 133/79 100 07/05/18 06:59 07/05/18 06:59 07/05/18 06:59 07/05/18 06:30 07/05/18 06:59 Period Temp Pulse Resp BP Sys/Archuleta Pulse Ox Last 24 Hr 97.2 F-98.9 F 86-115 11-16 87-141/46-98 91-100 Intake and Output 07/04/18 07/05/18 07/05/18 21:59 05:59 13:59 Intake Total 1251 / 1251 251 / 251 Output Total 490 / 490 662 / 662 250 / 250 Balance 761 / 761 -411 / -411 -250 / -250 Weight 124.284 kg Intake & Output: Intake & Output 07/04/18 07/05/18 07/05/18 21:59 05:59 13:59 Intake Total 1251 / 1251 251 / 251 Output Total 490 / 490 662 / 662 250 / 250 Balance 761 / 761 -411 / -411 -250 / -250 Weight 124.284 kg Intake: IV 1251 / 1251 251 / 251 Sodium Chloride 0.9% 1,000 ml @ 1000 / 1000 250 mls/hr IV .Q4H MALENA Rx#: [id number] Zosyn 3.375 gm In Dextrose 5% 50 / 50 50 / 50 in Water 50 ml @ 100 mls/hr IV Q6H MALENA Rx#:[id number] Diprivan 1,000 mg In Premix 1 101 / 101 Bag @ 5 MCG/KG/HR 0.05 mls/hr IV .Q24H MALENA Rx#:[id number] Output: Gastric Drainage 30 / 30 Left Nare 30 / 30 Urine Catheter Amount 490 / 490 632 / 632 100 / 100 Stool 150 / 150 Other: Urine Appearance Clear Clear Clear Uretheral (Martinez) Clear Clear Urine Color Dark Yellow Dark Yellow Light Shwetha Uretheral (Martinez) Dark Yellow Dark Yellow Urine Odor Normal Stool Size Small Stool Consistency Dry and Hard Liquid Exam: General: Sedated on vent but awakens, no acute Distress HEENT: PERRL, neck supple, CV: RRR, No murmurs, normal s1/s2 Pulm: dimished b/l, no wheezing/rhonchi/rales Abd: soft, nontender, +BS x4, obese Ext: no clubbing/cyanosis/edema Neuro: Intubated and sedated but partially awakens and follows commands, does not opens eyes, 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 PERRL Skin: warm/dry Medical - PN: Obj Da - Labs CBC & Chem 7: 07/05/18 04:00 07/05/18 04:00 Labs: Abnormal Lab Results 07/05/18 07/05/18 07/04/18 04:00 04:00 14:44 WBC RBC 3.27 L Hgb 9.0 L Hct 27.5 L RDW 16.4 H Gran % 92.3 H Lymph % (Auto) 5.5 L Gran # 8.9 H Lymph # (Auto) 0.5 L Kendall # (Auto) Lymphocytes % Sodium Chloride Carbon Dioxide BUN 28 H Creatinine 1.8 H Glucose 211 H 249 H Calcium 6.2 L 6.3 L Phosphorus 2.1 L Magnesium 3.0 H 3.6 H Total Protein 4.4 L 4.0 L Albumin 2.2 L 2.1 L Globulin 1.9 L Triglycerides 217 H 262 H TSH 07/04/18 07/04/18 07/04/18 06:47 06:47 06:47 WBC 18.5 H RBC Hgb 11.2 L Hct 34.4 L RDW 16.2 H Gran % 83.7 H Lymph % (Auto) 7.4 L Gran # 15.4 H Lymph # (Auto) 1.4 L Kendall # (Auto) 1.5 H Lymphocytes % 11 L Sodium Chloride 92 L Carbon Dioxide 31 H BUN 33 H Creatinine 2.7 H Glucose 198 H Calcium 7.9 L Phosphorus Magnesium Total Protein 5.8 L Albumin 3.1 L Globulin Triglycerides TSH 07/03/18 07/02/18 07/02/18 15:06 16:01 16:01 WBC 11.3 H RBC Hgb Hct RDW 15.7 H Gran % 79.3 H Lymph % (Auto) 15.4 L Gran # 9.0 H Lymph # (Auto) Kendall # (Auto) Lymphocytes % Sodium 132 L Chloride 82 L Carbon Dioxide 34 H BUN Creatinine Glucose 234 H Calcium Phosphorus Magnesium Total Protein Albumin Globulin Triglycerides TSH 0.17 L Meds: Medications Chlorhexidine Gluconate (Peridex) 15 ml SWABMOUTH BID [facility] Last Admin: 07/04/18 20:47 Dose: 15 ml Dextrose (Dextrose 50%) 0 ml IV UD PRN PRN Reason: Hypoglycemia Diagnostic Test (Pha) (Accu-Chek) 1 each FS ACHS [facility] Last Admin: 07/04/18 20:45 Dose: 1 each Glucose (Insta-Glucose) 15 gm PO PRN PRN PRN Reason: Hypoglycemia Hydromorphone HCl (Dilaudid) 0.5 mg IV Q1HP PRN PRN Reason: PAIN LEVEL > 6 Last Admin: 07/05/18 05:48 Dose: 0.5 mg Metronidazole (Flagyl) 500 mg in 100 mls @ 100 mls/hr IV Q6H [facility] Last Admin: 07/05/18 04:51 Dose: 100 mls/hr Acetaminophen (Ofirmev) 1,000 mg in 100 mls @ 200 mls/hr IV Q6HP PRN PRN Reason: Pain Piperacillin Sod/Tazobactam (Sod 3.375 gm/ Dextrose) 50 mls @ 100 mls/hr IV Q6H [facility] Last Admin: 07/05/18 05:48 Dose: 100 mls/hr Propofol 1,000 mg/ Premix 100 mls @ 0.05 mls/hr IV .Q24H [facility]; Protocol Last Admin: 07/05/18 05:54 Dose: 25 mcg/kg/hr, 0.28 mls/hr Heparin Sodium/Sodium Chloride (Heparin/Ns) 500 mls @ 0 mls/hr IV .Q0M [facility]; Protocol Norepinephrine Bitartrate 8 mg (/ Sodium Chloride) 250 mls @ 18.75 mls/hr IV PRN PRN; Protocol PRN Reason: Hypotension Sodium Chloride (Sodium Chloride 0.9%) 250 mls @ 20 mls/hr IV .[id number] [facility] Last Admin: 07/04/18 14:47 Dose: 20 mls/hr Sodium Chloride (Sodium Chloride 0.9%) 1,000 mls @ 150 mls/hr IV .Q6H40M [facility] Last Admin: 07/05/18 00:04 Dose: 150 mls/hr Insulin Human Lispro (Humalog) 0 unit SQ ACHS [facility]; Protocol Last Admin: 07/04/18 21:14 Dose: 8 unit Levothyroxine Sodium [facility]Synthroid) [facility] M[facility]prednisolone Sodium Succinate (Solu-Medrol) 40 mg IV Q12 [facility] Stop: 07/06/18 09:01 Last Admin: 07/04/18 20:46 Dose: 40 mg Mupirocin (Bactroban 2% Nasal Oint) 1 gm LUZ BID [facility] Stop: 07/09/18 09:01 Last Admin: 07/04/18 20:47 Dose: 1 gm Ondansetron HCl (Zofran) 4 mg IV Q4-6HP PRN PRN Reason: Nausea And Vomiting Pantoprazole Sodium (Protonix) [facility] - PN: A/P - Time Spent With Patient Total time spent is greater than 50% in coordination of care (as documented) at patient's floor/unit and/or counseling patient: - Narrative A/P Narrative: A: *Small bowel obstruction status post exploratory laparotomy with lysis of adhesions and repair of parastomal hernia (07/04) *Mechanical ventilation status post surgery: Left intubated after surgery sounds like patient has a history of delayed extubation after surgery *Hypovolemic shock: Secondary to volume depletion with history of chronic glucocorticoid use with associated adrenal suppression. -Required temporary vasopressors post-op *THANIA: 2/2 volume depletion and above -resolved *Contraction alkalosis: resolved *Anemia, acute on chronic: post-op + dilution + critical illness *History of myasthenia gravis and sarcoidosis: On chronic prednisone use 20 mg daily *History of depression *Hypothyroidism *GERD *Hypertension: *Hyperglycemia: steroids but concerned for underlying DM P: -Continue ventilation support with the daily sedation vacations weaning trial -Monitor I's and O's and weights daily -IVF's, NGT -IV glucocorticoids, SSI, lantus added -Zosyn -Dr. Currie on case -home Blood pressure medications held at this time for low blood pressure -Continue home levothyroxine -A1c -will need to address nutrition soon, -ppx:SCD, chemical per surgery when ok/ppi
[2018-07-05] MEDS ORDERED: LEVOTHYROXINE 100 MCG VIAL IV SCH (07:30)
[2018-07-05] MEDS: 0.9 % SODIUM CHLORIDE 250 ML IV SCH ×2 (09:15→18:36)
[2018-07-05] MEDS: LEVOTHYROXINE 100 MCG VIAL IV SCH (09:16)
[2018-07-05] MEDS: INSULIN LISPRO 1 UNIT/0.01 ML UNIT SQ SCH ×4 (09:16→22:12)
[2018-07-05] MEDS: PANTOPRAZOLE 40 MG VIAL IV SCH (09:17)
[2018-07-05] MEDS: INSULIN GLARGINE, HUMAN 1 UNIT/0.01 ML SQ SCH (09:17)
[2018-07-05] MEDS: methylPREDNISolone SOD SUCC 40 MG/ML VIAL IV SCH ×2 (09:18→22:05)
--- NOTE | 2018-07-05 09:18 | XRay Report ---
HISTORY: Intubated and follow-up pulmonary infiltrate FINDINGS: There are multiple overlying artifacts. The patient is intubated. Endotracheal tube and nasogastric tube are well-positioned. There is no pneumothorax. There is a band of discoid atelectasis medially in the left lower lobe. The streaky infiltrates/atelectasis seen in the upper lobes on yesterday's x-ray have resolved. The right lung is now clear but incompletely expanded. The heart size and pulmonary vasculature are normal. There is mild blunting of the left costophrenic sulcus. IMPRESSION: Resolving atelectasis in both lungs with residual atelectasis in the left lower lobe Interpreted and Authenticated by: Zay Juarez 07/05/18
[2018-07-05] MEDS: CHLORHEXIDINE GLUCONATE 1 ML ORAL.SOL SWABMOUTH SCH ×2 (09:31→22:05)
[2018-07-05 10:25] LABS: Hemoglobin A1C 8.1 % HGB (4.0-6.0)
--- NOTE | 2018-07-05 11:06 | General Surgery Progress Note ---
Surgical - Auxillary Note - Subjective Patient Information: Note initiated : 07/05/18 at 10:56 am Service Date, if different from initiated Date: [] Patient: Dayanna Stephens 57 y/o F admitted on 07/02/18 for Reports Bowel Obstruction. Chief Complaint: [] Patient in bed ventilated and sedated. Nursing reports intermittent sedation holidays and weaning trials for today: report that patient seems very anxious and agitated when propofol lessened. UO currently at about 25cc/hour. Vital Signs Temp Pulse Resp BP Pulse Ox 98.8 F 88 8 L 135/74 99 07/05/18 08:00 07/05/18 10:01 07/05/18 10:38 07/05/18 10:01 07/05/18 10:38 Period Temp Pulse Resp BP Sys/Archuleta Pulse Ox Last 24 Hr 97.2 F-98.9 F 85-115 8-16 87-144/46-98 91-100 Intake and Output 07/04/18 07/05/18 07/05/18 21:59 05:59 13:59 Intake Total 1251 / 1251 251 / 251 1100 / 1100 Output Total 490 / 490 662 / 662 375 / 375 Balance 761 / 761 -411 / -411 725 / 725 Weight 274 lb PE: ventilated and sedated but responsive to voice following commands and answering yes/no questions with head nods. rates current pain at 4/10 HEENT: opens eyes to command, sclera white Chest: clear in upper coronel bilaterally, diminished at bases CV: regular rhythm ABD: obese, soft. Mildly tender to palpation as expected especially near incision. Incision intact with some dark bloody drainage. No erythema. Ostomy with some semisolid stool in appliance. Bowel sounds hypoactive at this exam. EXT: warm. Pulses palpable. Martinez catheter with clear yellow urine CBC and Chem 7 07/05/18 04:00 07/05/18 04:00 A/P: Bowel obstruction secondary to parastomal hernia: s/p adhesiolysis and repair. ( no resection done) NGT in place and to remain until after extubation and ostomy function consistent. Bowel noted to be very edematous and patient has baseline chronic bowel dysfunction and constipation. Will follow course clinically. May need supplemental nutrition but recommend giving it a little more time for now before starting TPN. Intubated and ventilated currently with plans for weaning throughout today with possible extubation tomorrow--discussed with Dr. Vu who is managing this. Propofol use is high for keeping sedation. Consider low dose ativan or valium for baseline anxiety.
[2018-07-05] MEDS: ACETAMINOPHEN 1,000 MG/100 ML BOTTLE IV PRN (11:11)
[2018-07-05] MEDS: LORazepam 2 MG/ML VIAL IV PRN ×2 (11:49→19:02)
[2018-07-05] MEDS: MUPIROCIN 2% NASAL OINT 1 GM OINT.TOP NAS SCH (13:32)
[2018-07-05] MEDS: HEPARIN 5,000 UNIT/ML VIAL SQ SCH (22:04)
[2018-07-06] MEDS: PIPERACILLIN SODIUM/TAZOBACTAM 3.375 GM in DEXTROSE 5% IN WATER 50 ML IV SCH ×5 (00:18→23:35)
[2018-07-06] MEDS: LORazepam 2 MG/ML VIAL IV PRN ×2 (00:28→04:23)
[2018-07-06] MEDS: HYDROmorphone 2 MG/ML VIAL IV PRN ×10 (00:28→22:31)
[2018-07-06] MEDS: PROPOFOL 1,000 MG in PREMIX 1 BAG IV SCH (00:29)
[2018-07-06] MEDS: 0.9 % SODIUM CHLORIDE 1,000 ML IV SCH ×4 (01:27→16:34)
[2018-07-06] MEDS: metroNIDAZOLE 500 MG/100 ML BAG IV SCH ×4 (04:24→22:30)
[2018-07-06 05:13] LABS: Basophils # (Auto) 0 K/mcL (0.0-0.3); Basophils % (Auto) 0 % (0.0-2.0); Eosinophils # (Auto) 0 K/mcL (0.0-0.7); Eosinophils % (Auto) 0 % (0.0-7.0); Granulocytes % (Auto) 89.9 % (38.0-78.0); Lymphocytes # (Auto) 0.6 K/mcL (1.5-4.8); Lymphocytes % (Auto) 6.2 % (15.5-49.0); Mean Cell Volume 85.2 fL (80.0-100.0); Mean Corpuscular HGB Conc 32.5 g/dL (31.0-36.0); Mean Corpuscular Hemoglobin 27.7 pg (26.0-34.0); Monocytes # (Auto) 0.4 K/mcL (0.1-0.9); Monocytes % (Auto) 3.9 % (1.0-12.0); Platelet Count 227 K/mcL (140-440); RBC 3.01 M/mcL (4.00-5.20); Red Cell Distribution Width 16.2 % (11.5-14.5)
[2018-07-06] MEDS ORDERED: LABETALOL 5 MG/ML ML IV PRN (07:17)
--- NOTE | 2018-07-06 07:20 | Internal Med Progress Note ---
Medical - PN: Subj Patient information: Note initiated : 07/06/18 at 7:14 am Service Date, if different from initiated Date: [] Patient: Dayanna Stephens a 57 y/o F admitted on 07/02/18 for Reports Bowel Obstruction. Chief Complaint: [] Interval history: Ms. Stephens is a 57 year old F With a history of bowel obstructions both small and large. She presented to the ER with abdominal pain for 3 days she had no stool out of her ostomy she had nausea but no vomiting. She is found to have a dilated small bowel in the ED and a massive amount of stool in her colon. There is evidence of parastomal hernia which is felt to be the cause of obstruction. Dr. Currie was contacted. She was admitted and monitored with follow-up studies ordered. Patient failed to progress and up needing urgent laparotomy. She was also found to be hypotensive intraoperatively. Given fluid boluses Hespan. She underwent surgical correction today. Patient was left intubated and sent to the ICU afterwards. 07/05 had some increased ostomy outpt overnight, no acute issues. nods yes to abdominal pain and sore throat from ETT. in room. good UOP. 07/06 just extubated, feels poorly as expected but better with the ett out. has sore throat and headache and abdominal pain. Review of Systems: denies fever/chills/nausea/vomiting/chest pain/cough/dyspnea. Otherwise see above. - Constitutional Vitals: Vital Signs Temp Pulse Resp BP Pulse Ox 97.9 F 80 12 125/81 95 07/06/18 04:01 07/06/18 04:31 07/06/18 06:01 07/06/18 06:01 07/06/18 06:01 Period Temp Pulse Resp BP Sys/Archuleta Pulse Ox Last 24 Hr 97.8 F-98.8 F 69-100 8-17 88-152/56-104 90-100 Intake and Output 07/05/18 07/06/18 07/06/18 21:59 05:59 13:59 Intake Total 1151 / 1151 1151 / 1151 Output Total 510 / 510 555 / 555 125 / 125 Balance 641 / 641 596 / 596 -125 / -125 Weight 124.284 kg Intake & Output: Intake & Output 07/05/18 07/06/18 07/06/18 21:59 05:59 13:59 Intake Total 1151 / 1151 1151 / 1151 Output Total 510 / 510 555 / 555 125 / 125 Balance 641 / 641 596 / 596 -125 / -125 Weight 124.284 kg Intake: IV 1151 / 1151 1151 / 1151 Sodium Chloride 0.9% 1,000 ml @ 1000 / 1000 1000 / 1000 150 mls/hr IV .Q6H40M [facility] Rx#: [id number] Zosyn 3.375 gm In Dextrose 5% 50 / 50 50 / 50 in Water 50 ml @ 100 mls/hr IV Q6H [facility] Rx#:[id number] Diprivan 1,000 mg In Premix 1 1 Bag @ 5 MCG/KG/HR 0.05 mls/hr IV .Q24H [facility] Rx#:[id number] Output: Urine Catheter Amount 460 / 460 555 / 555 125 / 125 Stool 50 / 50 Other: Urine Appearance Clear Clear Clear Uretheral (Martinez) Clear Clear Urine Color Dark Yellow Dark Yellow Dark Yellow Uretheral (Martinez) Dark Yellow Dark Yellow Exam: General: awake, no acute Distress HEENT: EOMI, neck supple, CV: RRR, No murmurs, Pulm: dimished b/l, no wheezing/rhonchi/rales Abd: soft, nontender, +BS x4, obese Ext: no clubbing/cyanosis/edema Neuro: Awake and alert, no focal deficits, moves all extremities Skin: warm/dry Medical - PN: Obj Da - Labs CBC & Chem 7: 07/06/18 04:00 07/05/18 04:00 Labs: Abnormal Lab Results 07/06/18 07/05/18 07/05/18 04:00 07:20 04:00 WBC RBC 3.01 L Hgb 8.4 L Hct 25.7 L RDW 16.2 H Gran % 89.9 H Lymph % (Auto) 6.2 L Gran # 8.2 H Lymph # (Auto) 0.6 L Ross # (Auto) Lymphocytes % Chloride Carbon Dioxide BUN Creatinine Glucose 211 H Hemoglobin A1c 8.1 H Calcium 6.2 L Phosphorus 2.1 L Magnesium 3.0 H Total Protein 4.4 L Albumin 2.2 L Globulin Triglycerides 217 H TSH 07/05/18 07/04/18 07/04/18 04:00 14:44 06:47 WBC RBC 3.27 L Hgb 9.0 L Hct 27.5 L RDW 16.4 H Gran % 92.3 H Lymph % (Auto) 5.5 L Gran # 8.9 H Lymph # (Auto) 0.5 L Ross # (Auto) Lymphocytes % 11 L Chloride Carbon Dioxide BUN 28 H Creatinine 1.8 H Glucose 249 H Hemoglobin A1c Calcium 6.3 L Phosphorus Magnesium 3.6 H Total Protein 4.0 L Albumin 2.1 L Globulin 1.9 L Triglycerides 262 H TSH 07/04/18 07/04/18 07/03/18 06:47 06:47 15:06 WBC 18.5 H RBC Hgb 11.2 L Hct 34.4 L RDW 16.2 H Gran % 83.7 H Lymph % (Auto) 7.4 L Gran # 15.4 H Lymph # (Auto) 1.4 L Ross # (Auto) 1.5 H Lymphocytes % Chloride 92 L Carbon Dioxide 31 H BUN 33 H Creatinine 2.7 H Glucose 198 H Hemoglobin A1c Calcium 7.9 L Phosphorus Magnesium Total Protein 5.8 L Albumin 3.1 L Globulin Triglycerides TSH 0.17 L Meds: Medications Chlorhexidine Gluconate (Peridex) 15 ml SWABMOUTH BID [facility] Last Admin: 07/05/18 22:05 Dose: 15 ml Dextrose (Dextrose 50%) 0 ml IV UD PRN PRN Reason: Hypoglycemia Diagnostic Test (Pha) (Accu-Chek) 1 each FS ACHS [facility] Last Admin: 07/05/18 22:04 Dose: 1 each Glucose (Insta-Glucose) 15 gm PO PRN PRN PRN Reason: Hypoglycemia Heparin Sodium (Porcine) (Heparin) 5,000 unit SQ Q12 [facility] Last Admin: 07/05/18 22:04 Dose: Not Given Hydromorphone HCl (Dilaudid) 0.5 mg IV Q1HP PRN PRN Reason: PAIN LEVEL > 6 Last Admin: 07/06/18 04:24 Dose: 0.5 mg Metronidazole (Flagyl) 500 mg in 100 mls @ 100 mls/hr IV Q6H [facility] Last Admin: 07/06/18 04:24 Dose: 100 mls/hr Acetaminophen (Ofirmev) 1,000 mg in 100 mls @ 200 mls/hr IV Q6HP PRN PRN Reason: Pain Last Infusion: 07/05/18 11:57 Dose: Infused Piperacillin Sod/Tazobactam (Sod 3.375 gm/ Dextrose) 50 mls @ 100 mls/hr IV Q6H [facility] Last Admin: 07/06/18 06:10 Dose: 100 mls/hr Propofol 1,000 mg/ Premix 100 mls @ 0.05 mls/hr IV .Q24H [facility]; Protocol Last Admin: 07/06/18 00:29 Dose: 20 mcg/kg/hr, 0.23 mls/hr Heparin Sodium/Sodium Chloride (Heparin/Ns) 500 mls @ 0 mls/hr IV .Q0M [facility]; Protocol Norepinephrine Bitartrate 8 mg (/ Sodium Chloride) 250 mls @ 18.75 mls/hr IV PRN PRN; Protocol PRN Reason: Hypotension Sodium Chloride (Sodium Chloride 0.9%) 250 mls @ 20 mls/hr IV .[id number] [facility] Last Admin: 07/05/18 18:36 Dose: Not Given Sodium Chloride (Sodium Chloride 0.9%) 1,000 mls @ 150 mls/hr IV .Q6H40M [facility] Last Admin: 07/06/18 01:27 Dose: 150 mls/hr Insulin Glargine (Lantus) 10 unit SQ DAILY [facility] Last Admin: 07/05/18 09:17 Dose: 10 unit Insulin Human Lispro (Humalog) 0 unit SQ ACHS [facility]; Protocol Last Admin: 07/05/18 22:12 Dose: 2 unit [facility] Admin: 07/05/18 09:16 Dose: 125 mcg Lorazepam (Ativan) 0.5 mg IV Q8HP PRN PRN Reason: ANXIETY/SEDATION Last Admin: 07/06/18 04:23 Dose: 0.5 mg Methylprednisolone Sodium Succinate (Solu-Medrol) 40 mg IV Q12 [facility] Stop: 07/06/18 09:01 Last Admin: 07/05/18 22:05 Dose: 40 mg Ondansetron HCl (Zofran) 4 mg IV Q4-6HP PRN PRN Reason: Nausea And Vomiting Pantoprazole Sodium (Protonix) 40 mg IV QAMAC [facility] Last Admin: 07/05/18 09:17 Dose: 40 mg Medical - PN: A/P - Time Spent With Patient Total time spent is greater than 50% in coordination of care (as documented) at patient's floor/unit and/or counseling patient: - Narrative A/P Narrative: A: *Small bowel obstruction status post exploratory laparotomy with lysis of adhesions and repair of parastomal hernia (07/04) *Mechanical ventilation status post surgery: Left intubated after surgery sounds like patient has a history of delayed extubation after surgery *Hypovolemic shock: Secondary to volume depletion with history of chronic glucocorticoid use with associated adrenal suppression. -Required temporary vasopressors post-op *THANIA: 2/2 volume depletion and above -resolved *Contraction alkalosis: resolved *Anemia, acute on chronic: post-op + dilution + critical illness, monitor *History of myasthenia gravis and sarcoidosis: On chronic prednisone use 20 mg daily *History of depression *Hypothyroidism *GERD *Hypertension: *DM: A1c 8.1 P: -extubated -Monitor I's and O's and weights daily -IVF's, NGT -IV glucocorticoids (wean) -nutrition per surgery -empiric Zosyn -Dr. Pulliam covering Dr. Currie over weekend -home Blood pressure medications held initially for low blood pressure, restart as able -Continue home levothyroxine -SSI and lantus, would benefit from starting metformin upon d/c -ppx: heparin bid/ppi
[2018-07-06] MEDS: PANTOPRAZOLE 40 MG VIAL IV SCH (07:35)
[2018-07-06] MEDS: 0.9 % SODIUM CHLORIDE 250 ML IV SCH (08:08)
[2018-07-06] MEDS: LEVOTHYROXINE 100 MCG VIAL IV SCH (08:09)
[2018-07-06] MEDS: INSULIN LISPRO 1 UNIT/0.01 ML UNIT SQ SCH ×4 (08:25→20:42)
--- NOTE | 2018-07-06 08:56 | General Surgery Progress Note ---
Surgical - Auxillary Note - Subjective Patient Information: Note initiated : 07/06/18 at 8:47 am Service Date, if different from initiated Date: [] Patient: Dayanna Stephens 57 y/o F admitted on 07/02/18 for Reports Bowel Obstruction. Chief Complaint: [] Patient sitting up in bed. Extubated earlier this morning. Reports some throat pain and generalized abdominal and joint pain which is covered with current pain meds. UO adequate hourly. Vital Signs Temp Pulse Resp BP Pulse Ox 97.9 F 80 11 L 125/81 98 07/06/18 04:01 07/06/18 04:31 07/06/18 07:05 07/06/18 06:01 07/06/18 08:39 Period Temp Pulse Resp BP Sys/Archuleta Pulse Ox Last 24 Hr 97.8 F-98.8 F 69-100 8-17 88-152/56-104 90-99 Intake and Output 07/05/18 07/06/18 07/06/18 21:59 05:59 13:59 Intake Total 1151 / 1151 1251 / 1251 1300 / 1300 Output Total 510 / 510 555 / 555 125 / 125 Balance 641 / 641 696 / 696 1175 / 1175 Weight 274 lb PE: Alert and oriented. No distress HEENT: sclera white and membranes moist Chest: clear bilaterally in upper field, diminished at bases. Saturating in the 90's on 2L NC. CV: regular rhythm ABD: soft, mild tenderness to palpation. Incision intact without drainage. Ostomy with liquid stool in appliance. CBC and Chem 7 07/06/18 04:00 A/P: s/p adhesiolysis and repair of stomal hernia for bowel obstruction. Extubated this morning. Clinically stable at this time. Serum chemistries pending. Will continue current supportive care. NGT to remain for now. If remains stable after 24hrs can transfer to PCU.
[2018-07-06] MEDS ORDERED: methylPREDNISolone SOD SUCC 40 MG/ML VIAL IV SCH (09:00)
--- NOTE | 2018-07-06 09:50 | XRay Report ---
HISTORY: Extubated and atelectasis FINDINGS: The endotracheal tube has been removed since yesterday. Nasogastric tube remains in the stomach and there is a Port-A-Cath placed through the left subclavian vein into the right atrium of the heart. There are bands of discoid atelectasis in the left lower lobe which have improved since yesterday. A calcified granuloma is seen in the midportion of the right lung. No acute infiltrate has developed. There is no pleural effusion or congestive heart failure. The heart size is normal. IMPRESSION: Improving atelectasis in the left lower lobe Interpreted and Authenticated by: Zay Juarez 07/06/18
[2018-07-06] MEDS: HEPARIN 5,000 UNIT/ML VIAL SQ SCH ×2 (10:19→20:40)
[2018-07-06] MEDS: CHLORHEXIDINE GLUCONATE 1 ML ORAL.SOL SWABMOUTH SCH ×2 (10:20→20:41)
[2018-07-06] MEDS: INSULIN GLARGINE, HUMAN 1 UNIT/0.01 ML SQ SCH (10:20)
[2018-07-06 14:03] LABS: ALT/SGPT 10 U/l (0-40); Albumin 2.1 gm/dL (3.2-5.2); Albumin/Globulin Ratio 0.9 (1.0-2.3); Alkaline Phosphatase 50 U/L (39-117); Bilirubin,Direct < 0.2 mg/dL (0.0-0.3); Blood Urea Nitrogen 15 mg/dl (6-20); Gamma Glutamyl Transpeptidase 14 U/L (5-36); Uric Acid 3.5 mg/dL (2.5-8.0)
[2018-07-06] MEDS ORDERED: CALCIUM GLUCONATE 4.65 MEQ/10 ML VIAL IV ONE (14:07)
[2018-07-06] MEDS ORDERED: CALCIUM GLUCONATE 4.65 MEQ in DEXTROSE 5% IN WATER 50 ML IV ONE (14:30)
[2018-07-06] MEDS: ACETAMINOPHEN 1,000 MG/100 ML BOTTLE IV PRN ×2 (14:46→20:42)
[2018-07-07] MEDS: LORazepam 2 MG/ML VIAL IV PRN ×2 (01:09→23:36)
[2018-07-07] MEDS: 0.9 % SODIUM CHLORIDE 1,000 ML IV SCH (03:36)
[2018-07-07] MEDS: HYDROmorphone 2 MG/ML VIAL IV PRN ×8 (04:08→21:15)
[2018-07-07] MEDS: metroNIDAZOLE 500 MG/100 ML BAG IV SCH ×4 (05:06→23:39)
[2018-07-07] MEDS ORDERED: 0.9 % SODIUM CHLORIDE 10 ML SYRINGE IV SCH (06:00)
[2018-07-07] MEDS: PIPERACILLIN SODIUM/TAZOBACTAM 3.375 GM in DEXTROSE 5% IN WATER 50 ML IV SCH ×4 (06:07→23:38)
[2018-07-07 06:22] LABS: Basophils # (Auto) 0 K/mcL (0.0-0.3); Basophils % (Auto) 0.2 % (0.0-2.0); Eosinophils # (Auto) 0.1 K/mcL (0.0-0.7); Eosinophils % (Auto) 0.8 % (0.0-7.0); Lymphocytes # (Auto) 1.7 K/mcL (1.5-4.8); Lymphocytes % (Auto) 23.7 % (15.5-49.0); Mean Cell Volume 84.7 fL (80.0-100.0); Monocytes # (Auto) 0.6 K/mcL (0.1-0.9); Monocytes % (Auto) 8.3 % (1.0-12.0); Platelet Count 237 K/mcL (140-440); RBC 3.14 M/mcL (4.00-5.20); Red Cell Distribution Width 16.2 % (11.5-14.5)
[2018-07-07 06:28] LABS: Ionized Calcium 0.79 mmol/L (1.16-1.32)
[2018-07-07] MEDS: ACETAMINOPHEN 1,000 MG/100 ML BOTTLE IV PRN ×3 (06:32→21:14)
[2018-07-07 06:42] LABS: ALT/SGPT 10 U/l (0-40); Albumin 2.3 gm/dL (3.2-5.2); Alkaline Phosphatase 48 U/L (39-117); Bilirubin,Direct < 0.2 mg/dL (0.0-0.3); Blood Urea Nitrogen 14 mg/dl (6-20); Gamma Glutamyl Transpeptidase 17 U/L (5-36); Uric Acid 3.9 mg/dL (2.5-8.0)
[2018-07-07] MEDS ORDERED: CALCIUM GLUCONATE 4.65 MEQ/10 ML VIAL IV ONE ×2 (07:09→09:58)
--- NOTE | 2018-07-07 07:10 | Internal Med Progress Note ---
Medical - PN: Subj Patient information: Note initiated : 07/07/18 at 7:01 am Service Date, if different from initiated Date: [] Patient: Dayanna Stephens a 57 y/o F admitted on 07/02/18 for Reports Bowel Obstruction. Chief Complaint: [] Interval history: Ms. Stephens is a 57 year old F With a history of bowel obstructions both small and large. She presented to the ER with abdominal pain for 3 days she had no stool out of her ostomy she had nausea but no vomiting. She is found to have a dilated small bowel in the ED and a massive amount of stool in her colon. There is evidence of parastomal hernia which is felt to be the cause of obstruction. Dr. Currie was contacted. She was admitted and monitored with follow-up studies ordered. Patient failed to progress and up needing urgent laparotomy. She was also found to be hypotensive intraoperatively. Given fluid boluses Hespan. She underwent surgical correction today. Patient was left intubated and sent to the ICU afterwards. 07/05 had some increased ostomy outpt overnight, no acute issues. nods yes to abdominal pain and sore throat from ETT. in room. good UOP. 07/06 just extubated, feels poorly as expected but better with the ett out. has sore throat and headache and abdominal pain. 07/07 Feeling a little better each day, abdominal pain incision site. More ostomy output overnight. Review of Systems: denies headache/fever/chills/nausea/vomiting/chest pain/cough/dyspnea. Otherwise see above. - Constitutional Vitals: Vital Signs Temp Pulse Resp BP Pulse Ox 97.6 F 72 15 157/95 99 07/07/18 04:00 07/07/18 05:00 07/07/18 05:00 07/06/18 19:11 07/07/18 05:00 Period Temp Pulse Resp BP Sys/Archuleta Pulse Ox Last 24 Hr 97.6 F-98.5 F 64-93 7-30 127-166/69-108 88-100 Intake and Output 07/06/18 07/07/18 07/07/18 21:59 05:59 13:59 Intake Total 1277 / 1277 950 / 950 150 / 150 Output Total 2395 / 2395 1865 / 1865 Balance -1118 / -1118 -915 / -915 150 / 150 Weight 127.601 kg Intake & Output: Intake & Output 07/06/18 07/07/18 07/07/18 21:59 05:59 13:59 Intake Total 1277 / 1277 950 / 950 150 / 150 Output Total 2395 / 2395 1865 / 1865 Balance -1118 / -1118 -915 / -915 150 / 150 Weight 127.601 kg Intake: IV 1277 / 1277 950 / 950 150 / 150 Sodium Chloride 0.9% 1,000 ml @ 420 / 420 800 / 800 100 mls/hr IV .Q10H [facility] Rx#: [id number] Calcium Gluconate 4.65 Meq In 60 / 60 Dextrose 5% in Water 50 ml @ 60 mls/hr IV ONCE ONE Rx#: [id number] Zosyn 3.375 gm In Dextrose 5% 50 / 50 50 / 50 50 / 50 in Water 50 ml @ 100 mls/hr IV Q6H [facility] Rx#:[id number] Oral 0 / 0 Output: Gastric Drainage 350 / 350 Left Nare 350 / 350 Urine Catheter Amount 720 / 720 1140 / 1140 Stool 1675 / 1675 375 / 375 Other: Urine Appearance Clear Clear Uretheral (Martinez) Clear Clear Urine Color Bright Yellow Pale Uretheral (Martinez) Bright Yellow Bright Yellow Stool Size Copious Copious Stool Color Brown Brown Stool Consistency Liquid Liquid Exam: General: awake, no acute Distress HEENT: EOMI, neck supple, CV: RRR, No murmurs, Pulm: dimished b/l, no wheezing/rhonchi/rales Abd: soft, nontender, decreased BS but present, obese, ostomy Ext: no clubbing/cyanosis, mild edema Neuro: Awake and alert, no focal deficits, moves all extremities Skin: warm/dry Medical - PN: Obj Da - Labs CBC & Chem 7: 07/07/18 04:00 07/07/18 04:00 Labs: Abnormal Lab Results 07/07/18 07/07/18 07/06/18 04:00 04:00 13:30 WBC RBC 3.14 L Hgb 8.8 L Hct 26.6 L RDW 16.2 H Gran % Lymph % (Auto) Gran # Lymph # (Auto) Sherman # (Auto) Lymphocytes % PT INR Chloride Carbon Dioxide BUN Creatinine Glucose 156 H Hemoglobin A1c Calcium 6.1 L 5.8 L* Ionized Calcium Jeannie 0.79 L Phosphorus 2.6 L Magnesium Total Protein 4.6 L 4.4 L Albumin 2.3 L 2.1 L Globulin Albumin/Globulin Ratio 0.9 L Triglycerides 325 H 220 H 07/06/18 07/06/18 07/05/18 07:05 04:00 07:20 WBC RBC 3.01 L Hgb 8.4 L Hct 25.7 L RDW 16.2 H Gran % 89.9 H Lymph % (Auto) 6.2 L Gran # 8.2 H Lymph # (Auto) 0.6 L Sherman # (Auto) Lymphocytes % PT 14.9 H INR 1.2 H Chloride Carbon Dioxide BUN Creatinine Glucose Hemoglobin A1c 8.1 H Calcium Ionized Calcium Jeannie Phosphorus Magnesium Total Protein Albumin Globulin Albumin/Globulin Ratio Triglycerides 07/05/18 07/05/18 07/04/18 04:00 04:00 14:44 WBC RBC 3.27 L Hgb 9.0 L Hct 27.5 L RDW 16.4 H Gran % 92.3 H Lymph % (Auto) 5.5 L Gran # 8.9 H Lymph # (Auto) 0.5 L Sherman # (Auto) Lymphocytes % PT INR Chloride Carbon Dioxide BUN 28 H Creatinine 1.8 H Glucose 211 H 249 H Hemoglobin A1c Calcium 6.2 L 6.3 L Ionized Calcium Jeannie Phosphorus 2.1 L Magnesium 3.0 H 3.6 H Total Protein 4.4 L 4.0 L Albumin 2.2 L 2.1 L Globulin 1.9 L Albumin/Globulin Ratio Triglycerides 217 H 262 H 07/04/18 07/04/18 07/04/18 06:47 06:47 06:47 WBC 18.5 H RBC Hgb 11.2 L Hct 34.4 L RDW 16.2 H Gran % 83.7 H Lymph % (Auto) 7.4 L Gran # 15.4 H Lymph # (Auto) 1.4 L Sherman # (Auto) 1.5 H Lymphocytes % 11 L PT INR Chloride 92 L Carbon Dioxide 31 H BUN 33 H Creatinine 2.7 H Glucose 198 H Hemoglobin A1c Calcium 7.9 L Ionized Calcium Jeannie Phosphorus Magnesium Total Protein 5.8 L Albumin 3.1 L Globulin Albumin/Globulin Ratio Triglycerides Meds: Medications Chlorhexidine Gluconate (Peridex) 15 ml SWABMOUTH BID [facility] Last Admin: 07/06/18 20:41 Dose: 15 ml Dextrose (Dextrose 50%) 0 ml IV UD PRN PRN Reason: Hypoglycemia Diagnostic Test (Pha) (Accu-Chek) 1 each FS ACHS [facility] Last Admin: 07/06/18 20:41 Dose: 1 each Glucose (Insta-Glucose) 15 gm PO PRN PRN PRN Reason: Hypoglycemia Heparin Sodium (Porcine) (Heparin) 5,000 unit SQ Q12 [facility] Last Admin: 07/06/18 20:40 Dose: 5,000 unit Heparin Sodium (Porcine) (Heparin Flush) 2 ml IV Q12 [facility] Hydromorphone HCl (Dilaudid) 0.5 mg IV Q1HP PRN PRN Reason: PAIN LEVEL > 6 Last Admin: 07/07/18 06:31 Dose: 0.5 mg Metronidazole (Flagyl) 500 mg in 100 mls @ 100 mls/hr IV Q6H [facility] Last Infusion: 07/07/18 06:30 Dose: Infused Acetaminophen (Ofirmev) 1,000 mg in 100 mls @ 200 mls/hr IV Q6HP PRN PRN Reason: Pain Last Admin: 07/07/18 06:32 Dose: 200 mls/hr Piperacillin Sod/Tazobactam (Sod 3.375 gm/ Dextrose) 50 mls @ 100 mls/hr IV Q6H [facility] Last Infusion: 07/07/18 07:01 Dose: Infused Heparin Sodium/Sodium Chloride (Heparin/Ns) 500 mls @ 0 mls/hr IV .Q0M [facility]; Protocol Norepinephrine Bitartrate 8 mg (/ Sodium Chloride) 250 mls @ 18.75 mls/hr IV PRN PRN; Protocol PRN Reason: Hypotension Sodium Chloride (Sodium Chloride 0.9%) 1,000 mls @ 100 mls/hr IV .Q10H [facility] Last Admin: 07/07/18 03:36 Dose: 100 mls/hr Insulin Glargine (Lantus) 10 unit SQ DAILY [facility] Last Admin: 07/06/18 10:20 Dose: 10 unit Insulin Human Lispro (Humalog) 0 unit SQ ACHS [facility]; Protocol Last Admin: 07/06/18 20:42 Dose: Not Given Labetalol HCl (Trandate) 10 mg IV Q2HP PRN PRN Reason: Hypertension Last Admin: 07/06/18 19:29 Dose: 10 mg Levothyroxine Sodium (Synthroid) 125 mcg IV QAMAC [facility] Last Admin: 07/06/18 08:09 Dose: 125 mcg Lorazepam (Ativan) 0.5 mg IV Q8HP PRN PRN Reason: ANXIETY/SEDATION Last Admin: 07/07/18 01:09 Dose: 0.5 mg Ondansetron HCl (Zofran) 4 mg IV Q4-6HP PRN PRN Reason: Nausea And Vomiting Pantoprazole Sodium (Protonix) 40 mg IV QAMAC [facility] Last Admin: 07/06/18 07:35 Dose: 40 mg Sodium Chloride (Saline Flush) 10 ml IV Q8 [facility] Last Admin: 07/07/18 05:59 Dose: 10 ml Medical - PN: A/P - Time Spent With Patient Total time spent is greater than 50% in coordination of care (as documented) at patient's floor/unit and/or counseling patient: - Narrative A/P Narrative: A: *Small bowel obstruction status post exploratory laparotomy with lysis of adhesions and repair of parastomal hernia (07/04) -improved ostomy outpt *Mechanical ventilation status post surgery: Left intubated after surgery sounds like patient has a history of delayed extubation after surgery -extubated (07/06) *Hypovolemic shock: Secondary to volume depletion with history of chronic glucocorticoid use with associated adrenal suppression. -Required temporary vasopressors post-op *THANIA: 2/2 volume depletion and above -resolved *Contraction alkalosis: resolved *Anemia, acute on chronic: post-op + dilution + critical illness, monitor, stable *History of myasthenia gravis and sarcoidosis: On chronic prednisone use 20 mg daily *History of depression *Hypothyroidism *GERD *Hypertension: *DM: A1c 8.1 P: - -Monitor I's and O's and weights daily -IS -IVF's, NGT -IV glucocorticoids (weaning) -nutrition per surgery -empiric Zosyn -Dr. Pulliam covering Dr. Currie over weekend -home Blood pressure medications held initially for low blood pressure, restart when able to take PO, prn IV -Continue home levothyroxine -SSI and lantus, would benefit from starting metformin upon d/c -pt/ot -ppx: heparin bid/ppi
[2018-07-07] MEDS ORDERED: CALCIUM GLUCONATE 9.3 MEQ in DEXTROSE 5% IN WATER 100 ML IV ONE (08:00)
[2018-07-07] MEDS ORDERED: methylPREDNISolone SOD SUCC 125 MG/2 ML VIAL IV SCH ×2 (09:00→21:00)
--- NOTE | 2018-07-07 09:00 | General Surgery Progress Note ---
Surgical - Auxillary Note - Subjective Patient Information: Note initiated : 07/07/18 at 8:52 am Service Date, if different from initiated Date: [] Patient: Dayanna Stephens 57 y/o F admitted on 07/02/18 for Reports Bowel Obstruction. Chief Complaint: [] Patient sitting up in bed. No distress. Feels generally tired but better than yesterday. Pain control adequate with current meds. No issues overnight. UO good. Vital Signs Temp Pulse Resp BP Pulse Ox 97.6 F 86 15 157/95 98 07/07/18 04:00 07/07/18 07:00 07/07/18 07:00 07/06/18 19:11 07/07/18 08:34 Period Temp Pulse Resp BP Sys/Archuleta Pulse Ox Last 24 Hr 97.6 F-98.5 F 64-94 7-30 127-166/69-101 88-100 Intake and Output 07/06/18 07/07/18 07/07/18 21:59 05:59 13:59 Intake Total 1277 / 1277 950 / 950 250 / 250 Output Total 2395 / 2395 1865 / 1865 Balance -1118 / -1118 -915 / -915 250 / 250 Weight 281 lb 5 oz PE: No distress. A&Ox4 HEENT: sclera white. Membranes moist Chest: clear in upper coronel bilaterally, diminished at bases. No use of accessory respiratory musculature. CV: regular rate and rhythm ABD: obese, soft. Incision intact. Mild serosanguineous drainage. No surrounding erythema. Ostomy with liquid stool in appliance. NGT in place with clear bilious drainage.(800cc for yesterday) CBC and Chem 7 07/07/18 04:00 07/07/18 04:00 A/P: s/p adhesiolysis and repair of parastomal hernia for bowel obstruction. Bowel distention and edema reportedly extensive: continue NGT and bowel rest for now. Hemodynamically stable and no respiratory distress since extubation. Transfer to telemetry status. d/c mitchell and arterial line. PT consult.
[2018-07-07] MEDS: LEVOTHYROXINE 100 MCG VIAL IV SCH (09:37)
[2018-07-07] MEDS: PANTOPRAZOLE 40 MG VIAL IV SCH (09:37)
[2018-07-07] MEDS: INSULIN LISPRO 1 UNIT/0.01 ML UNIT SQ SCH ×4 (09:37→21:18)
[2018-07-07] MEDS: HEPARIN 5,000 UNIT/ML VIAL SQ SCH ×2 (09:38→20:23)
[2018-07-07] MEDS: INSULIN GLARGINE, HUMAN 1 UNIT/0.01 ML SQ SCH (09:38)
[2018-07-07] MEDS: CHLORHEXIDINE GLUCONATE 1 ML ORAL.SOL SWABMOUTH SCH ×2 (09:41→20:23)
[2018-07-07] MEDS ORDERED: ONDANSETRON 4 MG/2 ML VIAL IV PRN (09:58)
[2018-07-07] MEDS ORDERED: DEXTROSE 31 GM ORAL.SUSP PO PRN (09:58)
[2018-07-07] MEDS ORDERED: DEXTROSE 50% 50 ML VIAL IV PRN (09:58)
[2018-07-07] MEDS ORDERED: HEPARIN/NS 500 ML IV SCH (09:58)
[2018-07-07] MEDS ORDERED: LABETALOL 5 MG/ML ML IV PRN ×2 (09:58→10:15)
[2018-07-07] MEDS ORDERED: MAGNESIUM SULFATE 2 GM/50 ML BAG IV ONE (12:28)
[2018-07-07] MEDS: DEXTROSE 5%-1/2NS W/10MEQ KCL 1,000 ML IV SCH (13:55)
[2018-07-07] MEDS: 0.9 % SODIUM CHLORIDE 10 ML SYRINGE IV SCH ×2 (14:44→22:27)
[2018-07-08] MEDS: HYDROmorphone 2 MG/ML VIAL IV PRN ×7 (01:15→20:52)
[2018-07-08] MEDS: DEXTROSE 5%-1/2NS W/10MEQ KCL 1,000 ML IV SCH ×3 (02:52→16:18)
[2018-07-08] MEDS: ACETAMINOPHEN 1,000 MG/100 ML BOTTLE IV PRN ×3 (03:16→19:42)
[2018-07-08] MEDS: PIPERACILLIN SODIUM/TAZOBACTAM 3.375 GM in DEXTROSE 5% IN WATER 50 ML IV SCH ×3 (05:10→17:56)
[2018-07-08] MEDS: metroNIDAZOLE 500 MG/100 ML BAG IV SCH ×3 (05:11→17:56)
[2018-07-08 05:12] LABS: Basophils # (Auto) 0 K/mcL (0.0-0.3); Basophils % (Auto) 0 % (0.0-2.0); Eosinophils # (Auto) 0 K/mcL (0.0-0.7); Eosinophils % (Auto) 0.4 % (0.0-7.0); Granulocytes % (Auto) 79.7 % (38.0-78.0); Lymphocytes # (Auto) 0.8 K/mcL (1.5-4.8); Lymphocytes % (Auto) 14.3 % (15.5-49.0); Mean Cell Volume 84.4 fL (80.0-100.0); Mean Corpuscular HGB Conc 32.3 g/dL (31.0-36.0); Mean Corpuscular Hemoglobin 27.2 pg (26.0-34.0); Monocytes # (Auto) 0.3 K/mcL (0.1-0.9); Monocytes % (Auto) 5.6 % (1.0-12.0); Platelet Count 251 K/mcL (140-440); RBC 3.37 M/mcL (4.00-5.20); Red Cell Distribution Width 15.8 % (11.5-14.5)
[2018-07-08 05:20] LABS: ALT/SGPT 11 U/l (0-40); Albumin 2.2 gm/dL (3.2-5.2); Alkaline Phosphatase 43 U/L (39-117); Bilirubin,Direct < 0.2 mg/dL (0.0-0.3); Blood Urea Nitrogen 10 mg/dl (6-20); Gamma Glutamyl Transpeptidase 22 U/L (5-36); Uric Acid 4.1 mg/dL (2.5-8.0)
[2018-07-08] MEDS ORDERED: CALCIUM GLUCONATE 9.3 MEQ in DEXTROSE 5% IN WATER 50 ML IV ONE (05:51)
[2018-07-08] MEDS ORDERED: CALCIUM GLUCONATE 4.65 MEQ in DEXTROSE 5% IN WATER 50 ML IV ONE (05:56)
[2018-07-08] MEDS ORDERED: MAGNESIUM SULFATE 2 GM/50 ML BAG IV ONE (06:48)
--- NOTE | 2018-07-08 06:50 | Internal Med Progress Note ---
Medical - PN: Subj Patient information: Note initiated : 07/08/18 at 6:42 am Service Date, if different from initiated Date: [] Patient: Dayanna Stephens a 57 y/o F admitted on 07/02/18 for Reports Bowel Obstruction. Chief Complaint: [] Interval history: Ms. Stephens is a 57 year old F With a history of bowel obstructions both small and large. She presented to the ER with abdominal pain for 3 days she had no stool out of her ostomy she had nausea but no vomiting. She is found to have a dilated small bowel in the ED and a massive amount of stool in her colon. There is evidence of parastomal hernia which is felt to be the cause of obstruction. Dr. Currie was contacted. She was admitted and monitored with follow-up studies ordered. Patient failed to progress and up needing urgent laparotomy. She was also found to be hypotensive intraoperatively. Given fluid boluses Hespan. She underwent surgical correction today. Patient was left intubated and sent to the ICU afterwards. 07/05 had some increased ostomy outpt overnight, no acute issues. nods yes to abdominal pain and sore throat from ETT. in room. good UOP. 07/06 just extubated, feels poorly as expected but better with the ett out. has sore throat and headache and abdominal pain. 07/07 Feeling a little better each day, abdominal pain incision site. More ostomy output overnight. 07/08 Has abdominal pain and chronic ankle pain. Overall feeling better, gradually each day. Review of Systems: denies headache/fever/chills/nausea/vomiting/chest pain/cough/dyspnea. Otherwise see above. - Constitutional Vitals: Vital Signs Temp Pulse Resp BP Pulse Ox 97.4 F 79 16 156/89 96 07/08/18 03:52 07/07/18 09:00 07/08/18 03:52 07/08/18 03:52 07/08/18 03:52 Period Temp Pulse Resp BP Sys/Archuleta Pulse Ox Last 24 Hr 97.3 F-98.1 F 79-86 13-20 141-156/63-89 92-98 Intake and Output 07/07/18 07/08/18 07/08/18 21:59 05:59 13:59 Intake Total 439 / 439 1250 / 1250 Output Total 675 / 675 1500 / 1500 Balance -236 / -236 -250 / -250 Weight 125.645 kg Intake & Output: Intake & Output 07/07/18 07/08/18 07/08/18 21:59 05:59 13:59 Intake Total 439 / 439 1250 / 1250 Output Total 675 / 675 1500 / 1500 Balance -236 / -236 -250 / -250 Weight 125.645 kg Intake: IV 439 / 439 1250 / 1250 Dextrose 5%-1/2Ns W/10Meq KCl 1 1000 / 1000 ,000 ml @ 100 mls/hr IV .Q10H [facility] Rx#:[id number] Zosyn 3.375 gm In Dextrose 5% 100 / 100 50 / 50 in Water 50 ml @ 100 mls/hr IV Q6H [facility] Rx#:[id number] Output: Gastric Drainage 350 / 350 Left Nare 350 / 350 Void Amount 675 / 675 1150 / 1150 # of times incontinent of urine 0 / 0 Other: Urine Appearance Clear Clear Urine Color Dark Yellow Dark Yellow Urine Odor Normal Strong # Voids 1 1 Exam: General: awake, no acute Distress HEENT: EOMI, neck supple, CV: RRR, normal s1/s2, Pulm: no wheezing/rhonchi/rales Abd: soft, nontender, +BS, obese, ostomy Ext: no clubbing/cyanosis, mild edema Neuro: Awake and alert, no focal deficits, moves all extremities Skin: warm/dry Medical - PN: Obj Da - Labs CBC & Chem 7: 07/08/18 03:42 07/08/18 03:42 Labs: Abnormal Lab Results 07/08/18 07/08/18 07/07/18 03:42 03:42 04:00 RBC 3.37 L Hgb 9.2 L Hct 28.4 L RDW 15.8 H Gran % 79.7 H Lymph % (Auto) 14.3 L Gran # Lymph # (Auto) 0.8 L PT INR Glucose 164 H Hemoglobin A1c Calcium 5.8 L* 6.1 L Ionized Calcium Jeannie 0.79 L Phosphorus Magnesium 1.5 L Lactate Dehydrogenase 261 H Total Protein 4.5 L 4.6 L Albumin 2.2 L 2.3 L Albumin/Globulin Ratio Triglycerides 352 H 325 H 0907/06/18 07/06/18 04:00 13:30 07:05 RBC 3.14 L Hgb 8.8 L Hct 26.6 L RDW 16.2 H Gran % Lymph % (Auto) Gran # Lymph # (Auto) PT 14.9 H INR 1.2 H Glucose 156 H Hemoglobin A1c Calcium 5.8 L* Ionized Calcium Jeannie Phosphorus 2.6 L Magnesium Lactate Dehydrogenase Total Protein 4.4 L Albumin 2.1 L Albumin/Globulin Ratio 0.9 L Triglycerides 220 H 07/06/18 07/05/18 04:00 07:20 RBC 3.01 L Hgb 8.4 L Hct 25.7 L RDW 16.2 H Gran % 89.9 H Lymph % (Auto) 6.2 L Gran # 8.2 H Lymph # (Auto) 0.6 L PT INR Glucose Hemoglobin A1c 8.1 H Calcium Ionized Calcium Jeannie Phosphorus Magnesium Lactate Dehydrogenase Total Protein Albumin Albumin/Globulin Ratio Triglycerides Meds: Medications Chlorhexidine Gluconate (Peridex) 15 ml SWABMOUTH BID [facility] Last Admin: 07/07/18 20:23 Dose: 15 ml Dextrose (Dextrose 50%) 0 ml IV UD PRN PRN Reason: Hypoglycemia Diagnostic Test (Pha) (Accu-Chek) 1 each FS ACHS [facility] Last Admin: 07/07/18 20:34 Dose: 1 each Glucose (Insta-Glucose) 15 gm PO PRN PRN PRN Reason: Hypoglycemia Heparin Sodium (Porcine) (Heparin) 5,000 unit SQ Q12 [facility] Last Admin: 07/07/18 20:23 Dose: 5,000 unit Heparin Sodium (Porcine) (Heparin Flush) 2 ml IV Q12 [facility] Last Admin: 07/07/18 20:23 Dose: 2 ml Hydromorphone HCl (Dilaudid) 0.5 mg IV Q1HP PRN PRN Reason: PAIN LEVEL > 6 Last Admin: 07/08/18 05:09 Dose: 0.5 mg Heparin Sodium/Sodium Chloride (Heparin/Ns) 500 mls @ 0 mls/hr IV .Q0M [facility]; Protocol Metronidazole (Flagyl) 500 mg in 100 mls @ 100 mls/hr IV Q6H [facility] Last Admin: 07/08/18 05:11 Dose: 100 mls/hr Acetaminophen (Ofirmev) 1,000 mg in 100 mls @ 200 mls/hr IV Q6HP PRN PRN Reason: Pain Last Infusion: 07/08/18 04:20 Dose: Infused Piperacillin Sod/Tazobactam (Sod 3.375 gm/ Dextrose) 50 mls @ 100 mls/hr IV Q6H [facility] Last Admin: 07/08/18 05:10 Dose: 100 mls/hr Potassium Chloride/Dextrose/Sod Cl (Dextrose 5%-1/2ns W/10meq Kcl) 1,000 mls @ 100 mls/hr IV .Q10H [facility] Last Admin: 07/08/18 02:52 Dose: 100 mls/hr Calcium Gluconate 9.3 meq/ (Dextrose) 70 mls @ 70 mls/hr IV ONCE ONE Stop: 07/08/18 06:50 Insulin Glargine (Lantus) 10 unit SQ DAILY [facility] Insulin Human Lispro (Humalog) 0 unit SQ ACHS [facility]; Protocol Last Admin: 07/07/18 21:18 Dose: Not Given Labetalol HCl (Trandate) 0 mg IV Q2HP PRN PRN Reason: Hypertension Levothyroxine Sodium (Synthroid) 125 mcg IV QAMAC [facility] Lorazepam (Ativan) 0.5 mg IV Q8HP PRN PRN Reason: ANXIETY/SEDATION Last Admin: 07/07/18 23:36 Dose: 0.5 mg Methylprednisolone Sodium Succinate (Solu-Medrol) 20 mg IV Q12 [facility] Last Admin: 07/07/18 20:23 Dose: 20 mg Ondansetron HCl (Zofran) 4 mg IV Q4-6HP PRN PRN Reason: Nausea And Vomiting Pantoprazole Sodium (Protonix) 40 mg IV QAMAC [facility] Sodium Chloride (Saline Flush) 10 ml IV Q8 [facility] Last Admin: 07/07/18 22:27 Dose: 10 ml Medical - PN: A/P - Time Spent With Patient Total time spent is greater than 50% in coordination of care (as documented) at patient's floor/unit and/or counseling patient: - Narrative A/P Narrative: A: *Small bowel obstruction status post exploratory laparotomy with lysis of adhesions and repair of parastomal hernia (07/04) -improved ostomy outpt *Mechanical ventilation status post surgery: Left intubated after surgery sounds like patient has a history of delayed extubation after surgery -extubated (07/06) *Hypovolemic shock: Secondary to volume depletion with history of chronic glucocorticoid use with associated adrenal suppression. 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 Pulliam covering for Dr. Currie -replete electrolyte prn -home Blood pressure medications held initially for low blood pressure, restart when able to take PO, prn IV -Continue home levothyroxine -SSI and lantus, would benefit from starting metformin upon d/c -pt/ot -ppx: heparin bid/ppi
[2018-07-08] MEDS: LEVOTHYROXINE 100 MCG VIAL IV SCH (07:46)
[2018-07-08] MEDS: PANTOPRAZOLE 40 MG VIAL IV SCH (07:47)
[2018-07-08] MEDS: 0.9 % SODIUM CHLORIDE 10 ML SYRINGE IV SCH ×3 (08:00→22:42)
[2018-07-08] MEDS: INSULIN GLARGINE, HUMAN 1 UNIT/0.01 ML SQ SCH (09:16)
[2018-07-08] MEDS: INSULIN LISPRO 1 UNIT/0.01 ML UNIT SQ SCH ×4 (09:17→21:10)
--- NOTE | 2018-07-08 09:42 | General Surgery Progress Note ---
Surgical - Auxillary Note - Subjective Patient Information: Note initiated : 07/08/18 at 9:33 am Service Date, if different from initiated Date: [] Patient: Daynana Stephens 57 y/o F admitted on 07/02/18 for Reports Bowel Obstruction. Chief Complaint: [] Patient resting in bed. Reports feeling worried about having another problem with her ostomy. Denies nausea or emesis. Vital Signs Temp Pulse Resp BP Pulse Ox 98.4 F 74 18 147/86 96 07/08/18 08:00 07/08/18 08:00 07/08/18 08:00 07/08/18 08:00 07/08/18 03:52 Period Temp Pulse Resp BP Sys/Archuleta Pulse Ox Last 24 Hr 97.3 F-98.4 F 74 13-20 141-156/63-89 92-98 Intake and Output 07/07/18 07/08/18 07/08/18 21:59 05:59 13:59 Intake Total 439 / 439 1250 / 1250 Output Total 675 / 675 1500 / 1500 475 / 475 Balance -236 / -236 -250 / -250 -475 / -475 Weight 277 lb PE: No distress HEENT: sclera white. membranes moist Chest: clear in upper coronel bilaterally; remains diminished at bases. CV: regular rate and rhythm ABD: obese, soft. incision intact with some serous drainage. Developing some maceration at skin edges from occlusive dressings. CBC and Chem 7 07/08/18 03:42 07/08/18 03:42 A/P: s/p adhesiolysis and repair of parastomal hernia. clinically stable. ostomy output has decreased. NGT with 500cc in canister from overnight. can trial NGT clamping and see how tolerated. PT ordered for strengthening and increased mobility.
[2018-07-08] MEDS: CHLORHEXIDINE GLUCONATE 1 ML ORAL.SOL SWABMOUTH SCH ×2 (09:51→20:50)
[2018-07-08] MEDS: HEPARIN 5,000 UNIT/ML VIAL SQ SCH ×2 (09:53→20:50)
[2018-07-08] MEDS: methylPREDNISolone SOD SUCC 40 MG/ML VIAL IV SCH (09:53)
[2018-07-08] MEDS: VITAMIN D3 400 UNIT TABLET PO SCH (17:25)
[2018-07-08] MEDS: LORazepam 2 MG/ML VIAL IV PRN (22:41)
[2018-07-09] MEDS: HYDROmorphone 2 MG/ML VIAL IV PRN ×7 (02:10→21:42)
[2018-07-09] MEDS: ACETAMINOPHEN 1,000 MG/100 ML BOTTLE IV PRN ×2 (02:31→19:01)
[2018-07-09] MEDS: DEXTROSE 5%-1/2NS W/10MEQ KCL 1,000 ML IV SCH ×2 (04:35→14:07)
[2018-07-09 04:59] LABS: Basophils # (Auto) 0 K/mcL (0.0-0.3); Basophils % (Auto) 0.4 % (0.0-2.0); Eosinophils # (Auto) 0.3 K/mcL (0.0-0.7); Granulocytes % (Auto) 54.5 % (38.0-78.0); Lymphocytes % (Auto) 29.5 % (15.5-49.0); Mean Cell Volume 83.9 fL (80.0-100.0); Mean Corpuscular HGB Conc 32.5 g/dL (31.0-36.0); Mean Corpuscular Hemoglobin 27.3 pg (26.0-34.0); Monocytes # (Auto) 0.7 K/mcL (0.1-0.9); Monocytes % (Auto) 10.6 % (1.0-12.0); Platelet Count 281 K/mcL (140-440); RBC 3.54 M/mcL (4.00-5.20); Red Cell Distribution Width 15.7 % (11.5-14.5)
[2018-07-09 05:17] LABS: ALT/SGPT 12 U/l (0-40); Albumin 2.3 gm/dL (3.2-5.2); Alkaline Phosphatase 42 U/L (39-117); Bilirubin,Direct < 0.2 mg/dL (0.0-0.3); Blood Urea Nitrogen 6 mg/dl (6-20); Gamma Glutamyl Transpeptidase 26 U/L (5-36); Uric Acid 4.3 mg/dL (2.5-8.0)
[2018-07-09] MEDS: 0.9 % SODIUM CHLORIDE 10 ML SYRINGE IV SCH ×3 (06:01→22:48)
--- NOTE | 2018-07-09 06:20 | General Surgery Progress Note ---
Surgical - Auxillary Note - Subjective Patient Information: Note initiated : 07/09/18 at 6:19 am Service Date, if different from initiated Date: [] Patient: Dayanna Stephens 57 y/o F admitted on 07/02/18 for Reports Bowel Obstruction. Chief Complaint: [] No events overnight. c/o pain at incision and her baseline pain as well. Tolerated clamping trial yesterday for a couple of hours with ~100cc residual. No nausea or emesis yesterday or last night. Vital Signs Temp Pulse Resp BP Pulse Ox 97.1 F 83 16 148/84 95 07/09/18 04:00 07/09/18 04:00 07/09/18 04:00 07/09/18 04:00 07/09/18 04:00 Period Temp Pulse Resp BP Sys/Archuleta Pulse Ox Last 24 Hr 97.1 F-98.4 F 63-83 16-18 137-169/81-86 95-97 Intake and Output 07/08/18 07/09/18 07/09/18 21:59 05:59 13:59 Intake Total 100 / 100 1100 / 1100 Output Total 1175 / 1175 1125 / 1125 Balance -1075 / -1075 -25 / -25 Weight 273 lb PE: No distress. A&O Chest: clear bilaterally in upper and lower coronel. Taking deeper breaths. CV: regular rhythm ABD: soft. incision intact. Mild irritation/maceration along edges of wound less with removal of occlusive dressing. No erythema or sign of infection. Ostomy with some liquid brown stool CBC and Chem 7 07/09/18 03:45 07/09/18 03:45 A/P: s/p adhesiolyis and repair of parastomal hernia. clinically stable. Trial clamp NGT again today and if tolerated with low residual will d/c NGT and start clear liquids. Increase activity as tolerated.
[2018-07-09] MEDS: INSULIN LISPRO 1 UNIT/0.01 ML UNIT SQ SCH ×4 (08:00→21:27)
[2018-07-09] MEDS: LEVOTHYROXINE 100 MCG VIAL IV SCH (08:07)
[2018-07-09] MEDS: PANTOPRAZOLE 40 MG VIAL IV SCH (08:07)
[2018-07-09] MEDS: HEPARIN 5,000 UNIT/ML VIAL SQ SCH ×2 (08:08→21:27)
[2018-07-09] MEDS ORDERED: POTASSIUM CHLORIDE 40 MEQ in DEXTROSE 5% IN WATER 500 ML IV ONE (08:12)
[2018-07-09] MEDS ORDERED: MAGNESIUM SULFATE 32.48 MEQ in DEXTROSE 5% IN WATER 100 ML IV ONE (08:12)
[2018-07-09] MEDS ORDERED: MAGNESIUM SULFATE IN WATER 100 ML IV ONE (08:15)
[2018-07-09] MEDS ORDERED: CALCIUM GLUCONATE 4.65 MEQ/10 ML VIAL IV ONE (08:15)
[2018-07-09] MEDS ORDERED: SODIUM CHLORIDE 0.9% IV ONE (09:00)
[2018-07-09] MEDS ORDERED: CALCIUM GLUCONATE IV ONE (09:00)
[2018-07-09] MEDS: CHLORHEXIDINE GLUCONATE 1 ML ORAL.SOL SWABMOUTH SCH ×2 (09:43→21:28)
[2018-07-09] MEDS: methylPREDNISolone SOD SUCC 40 MG/ML VIAL IV SCH (09:44)
[2018-07-09] MEDS: INSULIN GLARGINE, HUMAN 1 UNIT/0.01 ML SQ SCH (10:00)
[2018-07-09] MEDS: VITAMIN D3 400 UNIT TABLET PO SCH (10:03)
[2018-07-09] MEDS: CALCITRIOL 0.25 MCG CAPSULE PO SCH ×3 (10:03→21:36)
--- NOTE | 2018-07-09 13:39 | Internal Med Progress Note ---
Medical - PN: Subj Patient information: Note initiated : 07/09/18 at 1:36 pm Service Date, if different from initiated Date: [] Patient: Dayanna Stephens a 57 y/o F admitted on 07/02/18 for Reports Bowel Obstruction. Chief Complaint: [] Interval history: Ms. Stephens is a 57 year old F With a history of bowel obstructions both small and large. She presented to the ER with abdominal pain for 3 days she had no stool out of her ostomy she had nausea but no vomiting. She is found to have a dilated small bowel in the ED and a massive amount of stool in her colon. There is evidence of parastomal hernia which is felt to be the cause of obstruction. Dr. Currie was contacted. She was admitted and monitored with follow-up studies ordered. Patient failed to progress and up needing urgent laparotomy. She was also found to be hypotensive intraoperatively. Given fluid boluses Hespan. She underwent surgical correction today. Patient was left intubated and sent to the ICU afterwards. 07/05 had some increased ostomy outpt overnight, no acute issues. nods yes to abdominal pain and sore throat from ETT. in room. good UOP. 07/06 just extubated, feels poorly as expected but better with the ett out. has sore throat and headache and abdominal pain. 07/07 Feeling a little better each day, abdominal pain incision site. More ostomy output overnight. 07/08 Has abdominal pain and chronic ankle pain. Overall feeling better, gradually each day. 07/09 Patient seen examined, no acute issues, still has abdominal pain, working with PT, slow improvement low lyle, low mg, low k noted will replace start on oral cymbalta, start on oral calcitriol advised pt to follow up with neurologist, she is on quite a high dose of prednisone for a vry long time for her Myasthenia Dr Kirk is her neurologist. Pertinent ROS: Denies headache, dizziness Denies chest pain, palpitations Denies cough or shortness of breath no nausae, or vomiting, ng tube in place, abdominal pain present. - Constitutional Vitals: Vital Signs Temp Pulse Resp BP Pulse Ox 98.4 F 75 18 141/78 96 07/09/18 12:07/09/18 12:07/09/18 12:07/09/18 12:00 07/09/18 12:00 Period Temp Pulse Resp BP Sys/Archuleta Pulse Ox Last 24 Hr 97.1 F-98.7 F 63-83 16-18 141-169/78-90 94-97 Intake and Output 07/08/18 07/09/18 07/09/18 21:59 05:59 13:59 Intake Total 100 / 100 1100 / 1100 Output Total 1175 / 1175 1125 / 1125 1450 / 1450 Balance -1075 / -1075 -25 / -25 -1450 / -1450 Weight 273 lb Intake & Output: Intake & Output 07/08/18 07/09/18 07/09/18 21:59 05:59 13:59 Intake Total 100 / 100 1100 / 1100 Output Total 1175 / 1175 1125 / 1125 1450 / 1450 Balance -1075 / -1075 -25 / -25 -1450 / -1450 Weight 273 lb Intake: IV 100 / 100 1100 / 1100 Dextrose 5%-1/2Ns W/10Meq KCl 1 1000 / 1000 ,000 ml @ 100 mls/hr IV .Q10H [facility] Rx#:[id number] Output: Gastric Drainage 225 / 225 Left Nare 225 / 225 Void Amount 400 / 400 900 / 900 1450 / 1450 # of times incontinent of urine 525 / 525 Stool 250 / 250 Other: Urine Color Straw Dark Yellow Urine Odor Strong Normal # Voids 1 1 Exam: Constitutional; Afebrile, cooperative, alert, not in distress. morbidly obese Eyes- No icterus, , No periorbital swelling Ears- Ext ear normal, hearing normal to conversation. Neck- Midline trachea, supple Respiratory system: Air Entry equal on both sides, No crackles or wheezing, no rhonchi. CVS- Rate rhythm regular, S1,S2 heard, no gallop, no rub. Abdomen- hypoactive bowel tones, stoma site draining well [employer]- AOOx3, moving all extremities, no gross focal deficit noted. Medical - PN: Obj Da - Labs CBC & Chem 7: 07/09/18 03:45 07/09/18 03:45 Labs: Abnormal Lab Results 07/09/18 07/09/18 07/08/18 03:45 03:45 03:42 RBC 3.54 L Hgb 9.7 L Hct 29.7 L RDW 15.7 H MPV 7.2 L Gran % Lymph % (Auto) Lymph # (Auto) Glucose 108 H Calcium 6.1 L Ionized Calcium Jeannie Phosphorus Magnesium 1.3 L Lactate Dehydrogenase 275 H Total Protein 4.7 L Albumin 2.3 L Albumin/Globulin Ratio Triglycerides 421 H 25-OH Vitamin D Total 17.09 L 07/08/18 07/08/18 07/07/18 03:42 03:42 04:00 RBC 3.37 L Hgb 9.2 L Hct 28.4 L RDW 15.8 H MPV Gran % 79.7 H Lymph % (Auto) 14.3 L Lymph # (Auto) 0.8 L Glucose 164 H Calcium 5.8 L* 6.1 L Ionized Calcium Jeannie 0.79 L Phosphorus Magnesium 1.5 L Lactate Dehydrogenase 261 H Total Protein 4.5 L 4.6 L Albumin 2.2 L 2.3 L Albumin/Globulin Ratio Triglycerides 352 H 325 H 25-OH Vitamin D Total 07/07/18 07/06/18 04:00 13:30 RBC 3.14 L Hgb 8.8 L Hct 26.6 L RDW 16.2 H MPV Gran % Lymph % (Auto) Lymph # (Auto) Glucose 156 H Calcium 5.8 L* Ionized Calcium Jeannie Phosphorus 2.6 L Magnesium Lactate Dehydrogenase Total Protein 4.4 L Albumin 2.1 L Albumin/Globulin Ratio 0.9 L Triglycerides 220 H 25-OH Vitamin D Total Meds: Medications Calcitriol (Rocaltrol) 0.5 mcg PO TID [facility] Last Admin: 07/09/18 10:03 Dose: Not Given Chlorhexidine Gluconate (Peridex) 15 ml SWABMOUTH BID [facility] Last Admin: 07/09/18 09:43 Dose: Not Given Dextrose (Dextrose 50%) 0 ml IV UD PRN PRN Reason: Hypoglycemia Diagnostic Test (Pha) (Accu-Chek) 1 each FS ACHS [facility] Last Admin: 07/09/18 12:06 Dose: 1 each Duloxetine HCl (Cymbalta) 30 mg PO BID [facility] Glucose (Insta-Glucose) 15 gm PO PRN PRN PRN Reason: Hypoglycemia Heparin Sodium (Porcine) (Heparin) 5,000 unit SQ Q12 [facility] Last Admin: 07/09/18 08:08 Dose: 5,000 unit Heparin Sodium (Porcine) (Heparin Flush) 2 ml IV Q12 [facility] Last Admin: 07/09/18 10:00 Dose: 2 ml Hydromorphone HCl (Dilaudid) 0.5 mg IV Q1HP PRN PRN Reason: PAIN LEVEL > 6 Last Admin: 07/09/18 13:23 Dose: 0.5 mg Heparin Sodium/Sodium Chloride (Heparin/Ns) 500 mls @ 0 mls/hr IV .Q0M [facility]; Protocol Acetaminophen (Ofirmev) 1,000 mg in 100 mls @ 200 mls/hr IV Q6HP PRN PRN Reason: Pain Last Infusion: 07/09/18 03:05 Dose: Infused Potassium Chloride/Dextrose/Sod Cl (Dextrose 5%-1/2ns W/10meq Kcl) 1,000 mls @ 100 mls/hr IV .Q10H [facility] Last Admin: 07/09/18 04:35 Dose: 100 mls/hr Insulin Glargine (Lantus) 10 unit SQ DAILY [facility] Last Admin: 07/09/18 10:00 Dose: 10 unit Insulin Human Lispro (Humalog) 0 unit SQ ACHS [facility]; Protocol Last Admin: 07/09/18 12:06 Dose: Not Given Labetalol HCl (Trandate) 0 mg IV Q2HP PRN PRN Reason: Hypertension Levothyroxine Sodium (Synthroid) 125 mcg IV QAMAC [facility] Last Admin: 07/09/18 08:07 Dose: 125 mcg Lorazepam (Ativan) 0.5 mg IV Q8HP PRN PRN Reason: ANXIETY/SEDATION Last Admin: 07/08/18 22:41 Dose: 0.5 mg Methylprednisolone Sodium Succinate (Solu-Medrol) 20 mg IV DAILY [facility] Last Admin: 07/09/18 09:44 Dose: 20 mg Ondansetron HCl (Zofran) 4 mg IV Q4-6HP PRN PRN Reason: Nausea And Vomiting Pantoprazole Sodium (Protonix) 40 mg IV QAMAC [facility] Last Admin: 07/09/18 08:07 Dose: 40 mg Sodium Chloride (Saline Flush) 10 ml IV Q8 [facility] Last Admin: 07/09/18 06:01 Dose: Not Given Vitamin D (Vitamin D3) 800 unit PO DAILY [facility] Last Admin: 07/09/18 10:03 Dose: Not Given Medical - PN: A/P - Time Spent With Patient Total time spent is greater than 50% in coordination of care (as documented) at patient's floor/unit and/or counseling patient: - Narrative A/P Narrative: A/P *Small bowel obstruction status post exploratory laparotomy with lysis of adhesions and repair of parastomal hernia (07/04) -improved ostomy outpt *Mechanical ventilation status post surgery: Left intubated after surgery sounds like patient has a history of delayed extubation after surgery -extubated (07/06) *Hypovolemic shock: Secondary to volume depletion with history of chronic glucocorticoid use with associated adrenal suppression. 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 Pulliam covering for Dr. Currie -replete electrolyte prn, IV calcium, mag and K replacement -Resume home dose of calcitriol -resume cymbalta bid. -home Blood pressure medications held initially for low blood pressure, restart when able to take PO, prn IV -Continue home levothyroxine -SSI and lantus, would benefit from starting metformin upon d/c -pt/ot -ppx: heparin bid/ppi
[2018-07-09] MEDS: DULoxetine 30 MG CAPSULE PO SCH ×2 (16:38→21:28)
[2018-07-10] MEDS: DEXTROSE 5%-1/2NS W/10MEQ KCL 1,000 ML IV SCH ×5 (01:19→22:25)
[2018-07-10] MEDS: ACETAMINOPHEN 1,000 MG/100 ML BOTTLE IV PRN ×2 (01:20→13:47)
[2018-07-10] MEDS: HYDROmorphone 2 MG/ML VIAL IV PRN ×4 (01:20→16:19)
[2018-07-10] MEDS: LORazepam 2 MG/ML VIAL IV PRN (04:16)
[2018-07-10] MEDS: 0.9 % SODIUM CHLORIDE 10 ML SYRINGE IV SCH ×3 (05:30→22:11)
--- NOTE | 2018-07-10 06:54 | General Surgery Progress Note ---
Surgical - Auxillary Note - Subjective Patient Information: Note initiated : 07/10/18 at 6:54 am Service Date, if different from initiated Date: [] Patient: Dayanna Stephens 57 y/o F admitted on 07/02/18 for Reports Bowel Obstruction. Chief Complaint: [] Patient resting in bed with CPAP on. States she didn't get to sleep until very late. NGT dc'd yesterday afternoon and clear liquids started. Patient tolerated p.o. intake. Denies nausea or vomiting. Reports some flatus and stool from ostomy overnight. Vital Signs Temp Pulse Resp BP Pulse Ox 97.4 F 63 18 155/79 97 07/10/18 04:00 07/10/18 04:00 07/10/18 04:00 07/10/18 04:00 07/10/18 04:00 Period Temp Pulse Resp BP Sys/Archuleta Pulse Ox Last 24 Hr 97.4 F-98.7 F 63-75 18-18 141-176/78-90 94-98 Intake and Output 07/09/18 07/10/18 07/10/18 21:59 05:59 13:59 Intake Total 1293 / 1293 1900 / 1900 Output Total 2250 / 2250 1600 / 1600 Balance -957 / -957 300 / 300 Weight 268 lb PE: No distress. Chest clear bilaterally. No accessory muscle use. CV: regular rate and rhythm ABD: soft, incision intact without drainage. Ostomy with liquid output. CBC and Chem 7 07/09/18 03:45 07/10/18 06:12 A/P: s/p adhesiolysis and repair of parastomal hernia. started on clear liquids which was tolerated. Will advance diet as tolerated. If otherwise stable from medicine standpoint can transfer to floor status.
[2018-07-10] MEDS: LEVOTHYROXINE 100 MCG VIAL IV SCH (07:37)
[2018-07-10] MEDS: PANTOPRAZOLE 40 MG VIAL IV SCH (07:38)
[2018-07-10 07:42] LABS: ALT/SGPT 12 U/l (0-40); Albumin 2.3 gm/dL (3.2-5.2); Albumin/Globulin Ratio 1.2 (1.0-2.3); Alkaline Phosphatase 37 U/L (39-117); Bilirubin,Direct < 0.2 mg/dL (0.0-0.3); Blood Urea Nitrogen 3 mg/dl (6-20); Gamma Glutamyl Transpeptidase 24 U/L (5-36); Uric Acid 4.8 mg/dL (2.5-8.0)
[2018-07-10] MEDS ORDERED: MAGNESIUM SULFATE 32.48 MEQ in DEXTROSE 5% IN WATER 100 ML IV ONE (08:22)
[2018-07-10] MEDS: INSULIN LISPRO 1 UNIT/0.01 ML UNIT SQ SCH ×4 (08:42→22:18)
[2018-07-10] MEDS: DULoxetine 30 MG CAPSULE PO SCH ×2 (08:43→22:10)
[2018-07-10] MEDS: VITAMIN D3 400 UNIT TABLET PO SCH (08:43)
[2018-07-10] MEDS: methylPREDNISolone SOD SUCC 40 MG/ML VIAL IV SCH (08:43)
[2018-07-10] MEDS: HEPARIN 5,000 UNIT/ML VIAL SQ SCH ×2 (08:43→22:10)
[2018-07-10] MEDS: INSULIN GLARGINE, HUMAN 1 UNIT/0.01 ML SQ SCH (08:47)
[2018-07-10] MEDS: CALCITRIOL 0.25 MCG CAPSULE PO SCH ×3 (08:48→22:10)
[2018-07-10] MEDS: CHLORHEXIDINE GLUCONATE 1 ML ORAL.SOL SWABMOUTH SCH ×2 (08:48→22:11)
[2018-07-10] MEDS ORDERED: MAGNESIUM SULFATE IN WATER 100 ML IV ONE (09:00)
[2018-07-10] MEDS ORDERED: POTASSIUM CHLORIDE 40 MEQ in DEXTROSE 5% IN WATER 500 ML IV ONE (09:00)
--- NOTE | 2018-07-10 14:57 | Internal Med Progress Note ---
Medical - PN: Subj Patient information: Note initiated : 07/10/18 at 2:54 pm Service Date, if different from initiated Date: [] Patient: Dayanna Stephens a 57 y/o F admitted on 07/02/18 for Reports Bowel Obstruction. Chief Complaint: [] Interval history: Ms. Stephens is a 57 year old F With a history of bowel obstructions both small and large. She presented to the ER with abdominal pain for 3 days she had no stool out of her ostomy she had nausea but no vomiting. She is found to have a dilated small bowel in the ED and a massive amount of stool in her colon. There is evidence of parastomal hernia which is felt to be the cause of obstruction. Dr. Currie was contacted. She was admitted and monitored with follow-up studies ordered. Patient failed to progress and up needing urgent laparotomy. She was also found to be hypotensive intraoperatively. Given fluid boluses Hespan. She underwent surgical correction today. Patient was left intubated and sent to the ICU afterwards. 07/05 had some increased ostomy outpt overnight, no acute issues. nods yes to abdominal pain and sore throat from ETT. in room. good UOP. 07/06 just extubated, feels poorly as expected but better with the ett out. has sore throat and headache and abdominal pain. 07/07 Feeling a little better each day, abdominal pain incision site. More ostomy output overnight. 07/08 Has abdominal pain and chronic ankle pain. Overall feeling better, gradually each day. 07/09 Patient seen examined, no acute issues, still has abdominal pain, working with PT, slow improvement low lyle, low mg, low k noted will replace start on oral cymbalta, start on oral calcitriol advised pt to follow up with neurologist, she is on quite a high dose of prednisone for a vry long time for her Myasthenia Dr Kirk is her neurologist. 07/10 Pt seen examined, no acute overnight issues, hemodynamically stable, no events on tele Mg still low will replace, lyle impriving pt now tolerating oral liquid diet, resume oral meds, switch IV solumedrol to po prednisone. Pertinent ROS: Denies headache, dizziness Denies chest pain, palpitations Denies cough or shortness of breath sore abdomen, no vomiting. - Constitutional Vitals: Vital Signs Temp Pulse Resp BP Pulse Ox 96.8 F L 93 H 20 166/94 93 07/10/18 12:00 07/10/18 12:00 07/10/18 12:00 07/10/18 12:00 07/10/18 12:00 Period Temp Pulse Resp BP Sys/Archuleta Pulse Ox Last 24 Hr 96.8 F-98.6 F 63-93 16-20 142-176/79-94 93-98 Intake and Output 07/10/18 07/10/18 07/10/18 05:59 13:59 21:59 Intake Total 2000 / 1999 1750 / 1750 Output Total 1600 / 1600 900 / 900 1200 / 1200 Balance 400 / 400 850 / 850 -1200 / -1200 Weight 268 lb Patient Weight 07/11/18 05:59 Weight 268 lb Intake & Output: Intake & Output 07/10/18 07/10/18 07/10/18 05:59 13:59 21:59 Intake Total 2000 / 2000 1750 / 1750 Output Total 1600 / 1600 900 / 900 1200 / 1200 Balance 400 / 400 850 / 850 -1200 / -1200 Weight 268 lb Intake: IV 1100 / 1100 1000 / 1000 Dextrose 5%-1/2Ns W/10Meq KCl 1 1000 / 1000 1000 / 1000 ,000 ml @ 100 mls/hr IV .Q10H [facility] Rx#:[id number] Oral 900 / 900 750 / 750 Output: Void Amount 1600 / 1600 900 / 900 1200 / 1200 Other: Meal Lunch Percent of Meal Consumed 100% Urine Appearance Clear Urine Color Bright Yellow Stool Size Moderate Stool Color Brown Yellow Exam: Constitutional; Afebrile, cooperative, alert, not in distress. Respiratory system: Air Entry equal on both sides, No crackles or wheezing, no rhonchi. CVS- Rate rhythm regular, S1,S2 heard, no gallop, no rub. [employer]IV[employer]- AOOx3, moving all extremities, no gross focal deficit noted. Medical - PN: Obj Da - Labs CBC & Chem 7: 07/09/18 03:45 07/10/18 06:12 Labs: Abnormal Lab Results 07/10/18 07/09/18 07/09/18 06:12 03:45 03:45 RBC 3.54 L Hgb 9.7 L Hct 29.7 L RDW 15.7 H MPV 7.2 L Gran % Lymph % (Auto) Lymph # (Auto) BUN 3 L Glucose 132 H 108 H Calcium 6.3 L 6.1 L Magnesium 1.5 L 1.3 L Alkaline Phosphatase 37 L Lactate Dehydrogenase 275 H Total Protein 4.3 L 4.7 L Albumin 2.3 L 2.3 L Globulin 2.0 L Triglycerides 431 H 421 H 25-OH Vitamin D Total 07/08/18 07/08/18 07/08/18 03:42 03:42 03:42 RBC 3.37 L Hgb 9.2 L Hct 28.4 L RDW 15.8 H MPV Gran % 79.7 H Lymph % (Auto) 14.3 L Lymph # (Auto) 0.8 L BUN Glucose 164 H Calcium 5.8 L* Magnesium 1.5 L Alkaline Phosphatase Lactate Dehydrogenase 261 H Total Protein 4.5 L Albumin 2.2 L Globulin Triglycerides 352 H 25-OH Vitamin D Total 17.09 L Meds: Medications Calcitriol (Rocaltrol) 0.5 mcg PO TID [facility] Last Admin: 07/10/18 08:48 Dose: 0.5 mcg Calcium Carbonate/Glycine (Calcium Carbonate) 1,200 mg PO BID [facility] Chlorhexidine Gluconate (Peridex) 15 ml SWABMOUTH BID [facility] Last Admin: 07/10/18 08:48 Dose: 15 ml Dextrose (Dextrose 50%) 0 ml IV UD PRN PRN Reason: Hypoglycemia Diagnostic Test (Pha) (Accu-Chek) 1 each FS ACHS [facility] Last Admin: 07/10/18 11:45 Dose: 1 each Duloxetine HCl (Cymbalta) 30 mg PO BID [facility] Last Admin: 07/10/18 08:43 Dose: 30 mg Glucose (Insta-Glucose) 15 gm PO PRN PRN PRN Reason: Hypoglycemia Heparin Sodium (Porcine) (Heparin) 5,000 unit SQ Q12 [facility] Last Admin: 07/10/18 08:43 Dose: 5,000 unit Heparin Sodium (Porcine) (Heparin Flush) 2 ml IV Q12 [facility] Last Admin: 07/10/18 08:47 Dose: Not Given Hydromorphone HCl (Dilaudid) 0.5 mg IV Q1HP PRN PRN Reason: PAIN LEVEL > 6 Last Admin: 07/10/18 13:01 Dose: 0.5 mg Heparin Sodium/Sodium Chloride (Heparin/Ns) 500 mls @ 0 mls/hr IV .Q0M [facility]; Protocol Acetaminophen (Ofirmev) 1,000 mg in 100 mls @ 200 mls/hr IV Q6HP PRN PRN Reason: Pain Last Admin: 07/10/18 13:47 Dose: 200 mls/hr Potassium Chloride/Dextrose/Sod Cl (Dextrose 5%-1/2ns W/10meq Kcl) 1,000 mls @ 100 mls/hr IV .Q10H [facility] Last Admin: 07/10/18 11:44 Dose: 100 mls/hr Insulin Glargine (Lantus) 10 unit SQ DAILY [facility] Last Admin: 07/10/18 08:47 Dose: 10 unit Insulin Human Lispro (Humalog) 0 unit SQ ACHS [facility]; Protocol Last Admin: 07/10/18 11:46 Dose: Not Given Labetalol HCl (Trandate) 0 mg IV Q2HP PRN PRN Reason: Hypertension Levothy[facility]ine [facility]) [facility] Last Admin: 07/10/18 07:37 Dose: 125 mcg Lorazepam (Ativan) 0.5 mg IV Q8HP PRN PRN Reason: ANXIETY/SEDATION Last Admin: 07/10/18 04:16 Dose: 0.5 mg Ondansetron HCl (Zofran) 4 mg IV Q4-6HP PRN PRN Reason: Nausea And Vomiting Pantoprazole Sodium (Protonix) 40 mg IV QAMAC [facility] Last Admin: 07/10/18 07:38 Dose: 40 mg Prednisone (Prednisone) 20 mg PO [facility] Sodium Chloride (Saline Flush) 10 ml IV Q8 [facility] Last Admin: 07/10/18 14:39 Dose: Not Given Vitamin D (Vitamin D3) 800 unit PO DAILY [facility] Last Admin: 07/10/18 08:43 Dose: 800 unit Medical - PN: A/P - Time Spent With Patient Total time spent is greater than 50% in coordination of care (as documented) at patient's floor/unit and/or counseling patient: - Narrative A/P Narrative: A/P *Small bowel obstruction status post exploratory laparotomy with lysis of adhesions and repair of parastomal hernia (07/04) -improved ostomy outpt *Mechanical ventilation status post surgery: Left intubated after surgery sounds like patient has a history of delayed extubation after surgery -extubated (07/06) *Hypovolemic shock: Secondary to volume depletion with history of chronic glucocorticoid use with associated adrenal suppression. 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 Pulliam covering for Dr. Currie -replete electrolyte prn, IV calcium, mag and K replacement, -Resume home dose of calcitriol. , resume calcium. -resume cymbalta bid. -home Blood pressure medications held initially for low blood pressure, restart when able to take PO, prn IV -Continue home levothyroxine -SSI and lantus, would benefit from starting metformin upon d/c -pt/ot -ppx: heparin bid/ppi
[2018-07-10] MEDS ORDERED: LABETALOL 5 MG/ML ML IV PRN (17:21)
[2018-07-10] MEDS ORDERED: HEPARIN/NS 500 ML IV SCH (17:21)
[2018-07-10] MEDS ORDERED: POLYETHYLENE GLYCOL 3350 17 GM PACKET PO PRN (17:21)
[2018-07-10] MEDS ORDERED: DEXTROSE 31 GM ORAL.SUSP PO PRN (17:21)
[2018-07-10] MEDS ORDERED: ONDANSETRON 4 MG/2 ML VIAL IV PRN (17:21)
[2018-07-10] MEDS ORDERED: DEXTROSE 50% 50 ML VIAL IV PRN (17:21)
[2018-07-10] MEDS: ACETAMINOPHEN W/CODEINE #3 1 TABLET PO PRN (19:41)
[2018-07-10] MEDS ORDERED: CALCIUM CARBONATE 1,250 MG/5 ML ORAL.SUSP PO SCH (21:00)
[2018-07-10] MEDS: CALCIUM CARBONATE 1,250 MG/5 ML ORAL.SUSP PO SCH (22:19)
[2018-07-11] MEDS: LORazepam 2 MG/ML VIAL IV PRN ×2 (00:19→23:25)
[2018-07-11] MEDS: ACETAMINOPHEN W/CODEINE #3 1 TABLET PO PRN ×6 (00:19→23:25)
[2018-07-11] MEDS: DEXTROSE 5%-1/2NS W/10MEQ KCL 1,000 ML IV SCH (02:11)
[2018-07-11] MEDS: 0.9 % SODIUM CHLORIDE 10 ML SYRINGE IV SCH ×3 (05:01→21:15)
[2018-07-11 05:54] LABS: ALT/SGPT 12 U/l (0-40); Albumin 2.6 gm/dL (3.2-5.2); Albumin/Globulin Ratio 1.1 (1.0-2.3); Alkaline Phosphatase 46 U/L (39-117); Bilirubin,Direct < 0.2 mg/dL (0.0-0.3); Blood Urea Nitrogen 4 mg/dl (6-20); Gamma Glutamyl Transpeptidase 28 U/L (5-36); Uric Acid 4.2 mg/dL (2.5-8.0)
[2018-07-11] MEDS ORDERED: PANTOPRAZOLE 40 MG VIAL IV SCH (07:30)
[2018-07-11] MEDS ORDERED: predniSONE 20 MG TABLET PO SCH (08:00)
[2018-07-11] MEDS: LEVOTHYROXINE 100 MCG VIAL IV SCH (08:12)
[2018-07-11] MEDS: HEPARIN 5,000 UNIT/ML VIAL SQ SCH ×2 (08:12→21:14)
[2018-07-11] MEDS: INSULIN GLARGINE, HUMAN 1 UNIT/0.01 ML SQ SCH (08:13)
[2018-07-11] MEDS: INSULIN LISPRO 1 UNIT/0.01 ML UNIT SQ SCH ×4 (08:13→21:11)
[2018-07-11] MEDS: VITAMIN D3 400 UNIT TABLET PO SCH (08:14)
[2018-07-11] MEDS: DULoxetine 30 MG CAPSULE PO SCH ×2 (08:14→21:11)
[2018-07-11] MEDS: predniSONE 20 MG TABLET PO SCH (08:14)
[2018-07-11] MEDS: CALCITRIOL 0.25 MCG CAPSULE PO SCH ×3 (08:15→21:11)
[2018-07-11] MEDS: CHLORHEXIDINE GLUCONATE 1 ML ORAL.SOL SWABMOUTH SCH ×2 (08:15→21:14)
[2018-07-11] MEDS ORDERED: MAGNESIUM SULFATE 32.48 MEQ in DEXTROSE 5% IN WATER 100 ML IV ONE (08:21)
[2018-07-11] MEDS: CALCIUM CARBONATE 1,250 MG/5 ML ORAL.SUSP PO SCH ×2 (08:26→21:12)
--- NOTE | 2018-07-11 08:54 | General Surgery Progress Note ---
Surgical - Auxillary Note - Subjective Patient Information: Note initiated : 07/11/18 at 8:53 am Service Date, if different from initiated Date: [] Patient: Dayanna Stephens 57 y/o F admitted on 07/02/18 for Reports Bowel Obstruction. Chief Complaint: [] Patient resting in bed. Had a good night. Transferred to floor last night. Tolerated full liquids last night. No nausea or emesis. Passing stool via ostomy. Vital Signs Temp Pulse Resp BP Pulse Ox 97.3 F 88 16 130/78 98 07/11/18 07:34 07/11/18 04:00 07/11/18 07:34 07/11/18 07:34 07/11/18 07:34 Period Temp Pulse Resp BP Sys/Archuleta Pulse Ox Last 24 Hr 96.8 F-98.5 F 69-93 16-20 128-166/72-94 92-98 Intake and Output 07/10/18 07/11/18 07/11/18 21:59 05:59 13:59 Intake Total 1580 / 1580 150 / 150 1505 / 1505 Output Total 2575 / 2575 2150 / 2150 1000 / 1000 Balance -995 / -995 -1999 / -1999 505 / 505 Weight 267 lb 8 oz PE: No distress. A&Ox3. appears in good spirits. Chest: clear bilaterally. CV: regular rate and rhythm Abd: soft, mild incisional tenderness. Incision intact. Mild patchy erythema along incision c/w dermatitis; not suggestive of infection. No drainage from wound. Ostomy with liquid stool output. EXT: warm. No edema. CBC and Chem 7 07/09/18 03:45 07/11/18 04:28 A/P: s/p adhesiolysis and repair of obstructing parastomal hernia. Patient with return of bowel function and progressing well. Has been hesitant to eat but tolerating liquids and feeling better. Will advance diet today and adjust pain medication dosing. If tolerated diet advancement plan d/c home tomorrow.
[2018-07-11] MEDS: NYSTATIN POWDER BOTTLE 15GM TOPICAL SCH ×2 (09:41→21:13)
[2018-07-11] MEDS: MAGNESIUM SULFATE IN WATER 100 ML IV SCH (09:41)
[2018-07-11] MEDS: MAGNESIUM OXIDE 400 MG TABLET PO SCH ×3 (09:45→21:11)
--- NOTE | 2018-07-11 12:37 | Internal Med Progress Note ---
Medical - PN: Subj Patient information: Note initiated : 07/11/18 at 12:35 pm Service Date, if different from initiated Date: [] Patient: Dayanna Stephens a 57 y/o F admitted on 07/02/18 for Reports Bowel Obstruction. Chief Complaint: [] Interval history: Ms. Stephens is a 57 year old F With a history of bowel obstructions both small and large. She presented to the ER with abdominal pain for 3 days she had no stool out of her ostomy she had nausea but no vomiting. She is found to have a dilated small bowel in the ED and a massive amount of stool in her colon. There is evidence of parastomal hernia which is felt to be the cause of obstruction. Dr. Currie was contacted. She was admitted and monitored with follow-up studies ordered. Patient failed to progress and up needing urgent laparotomy. She was also found to be hypotensive intraoperatively. Given fluid boluses Hespan. She underwent surgical correction today. Patient was left intubated and sent to the ICU afterwards. 07/05 had some increased ostomy outpt overnight, no acute issues. nods yes to abdominal pain and sore throat from ETT. in room. good UOP. 07/06 just extubated, feels poorly as expected but better with the ett out. has sore throat and headache and abdominal pain. 07/07 Feeling a little better each day, abdominal pain incision site. More ostomy output overnight. 07/08 Has abdominal pain and chronic ankle pain. Overall feeling better, gradually each day. 07/09 Patient seen examined, no acute issues, still has abdominal pain, working with PT, slow improvement low lyle, low mg, low k noted will replace start on oral cymbalta, start on oral calcitriol advised pt to follow up with neurologist, she is on quite a high dose of prednisone for a vry long time for her Myasthenia Dr Kirk is her neurologist. 07/10 Pt seen examined, no acute overnight issues, hemodynamically stable, no events on tele Mg still low will replace, lyle impriving pt now tolerating oral liquid diet, resume oral meds, switch IV solumedrol to po prednisone. 07/11 Patient seen examined, no acute overnight events tolerating po well mg low, will continue aggressive replacement Pertinent ROS: Denies headache, dizziness Denies chest pain, palpitations Denies cough or shortness of breath no worsening of abdominal pain, no nausea or vomiting. - Constitutional Vitals: Vital Signs Temp Pulse Resp BP Pulse Ox 99 F 88 16 164/100 95 07/11/18 12:01 07/11/18 04:00 07/11/18 12:01 07/11/18 12:01 07/11/18 12:01 Period Temp Pulse Resp BP Sys/Archuleta Pulse Ox Last 24 Hr 97.3 F-99 F 69-90 16-20 128-164/72-100 92-98 Intake and Output 07/10/18 07/11/18 07/11/18 21:59 05:59 13:59 Intake Total 1580 / 1580 150 / 150 1605 / 1605 Output Total 2575 / 2575 2150 / 2150 3000 / 3000 Balance -995 / -995 -1999 / -1999 -1395 / -1395 Weight 267 lb 8 oz Intake & Output: Intake & Output 07/10/18 07/11/18 07/11/18 21:59 05:59 13:59 Intake Total 1580 / 1580 150 / 150 1605 / 1605 Output Total 2575 / 2575 2150 / 2150 3000 / 3000 Balance -995 / -995 -1999 / -2000 -1395 / -1395 Weight 267 lb 8 oz Intake: IV 620 / 620 1085 / 1085 Dextrose 5%-1/2Ns W/10Meq KCl 1 985 / 985 ,000 ml @ 100 mls/hr IV .Q10H [facility] Rx#:[id number] Oral 960 / 960 150 / 150 520 / 520 Output: Gastric Drainage 225 / 225 Left Nare 225 / 225 Void Amount 2200 / 2200 1999 / 1999 3000 / 3000 Stool 150 / 150 150 / 150 Other: Meal Breakfast Percent of Meal Consumed 100% Urine Appearance Clear Clear Urine Color Bright Yellow Pale Urine Odor Normal Normal Stool Size Moderate Stool Color Brown Brown Yellow Stool Consistency Loose Liquid # Voids 1 Exam: Constitutional; Afebrile, cooperative, alert, not in distress. Respiratory system: Air Entry equal on both sides, No crackles or wheezing, no rhonchi. CVS- Rate rhythm regular, S1,S2 heard, no gallop, no rub. 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 Medical - PN: Obj Da - Labs CBC & Chem 7: 07/09/18 03:45 07/11/18 04:28 Labs: Abnormal Lab Results 07/11/18 07/10/18 07/09/18 04:28 06:12 03:45 RBC Hgb Hct RDW MPV BUN 4 L 3 L Glucose 141 H 132 H 108 H Calcium 7.2 L 6.3 L 6.1 L Phosphorus 4.7 H Magnesium 1.5 L 1.5 L 1.3 L Alkaline Phosphatase 37 L Lactate Dehydrogenase 270 H 275 H Total Protein 5.0 L 4.3 L 4.7 L Albumin 2.6 L 2.3 L 2.3 L Globulin 2.0 L Triglycerides 514 H 431 H 421 H 07/09/18 03:45 RBC 3.54 L Hgb 9.7 L Hct 29.7 L RDW 15.7 H MPV 7.2 L BUN Glucose Calcium Phosphorus Magnesium Alkaline Phosphatase Lactate Dehydrogenase Total Protein Albumin Globulin Triglycerides Meds: Medications Acetaminophen/Codeine Phosphate (Tylenol #3) 1 - 2 tab PO Q4-6HP PRN PRN Reason: PAIN LEVEL 3-6 Last Admin: 07/11/18 09:42 Dose: 2 tab Calcitriol (Rocaltrol) 0.5 mcg PO TID [facility] Last Admin: 07/11/18 08:15 Dose: 0.5 mcg Calcium Carbonate/Glycine (Calcium Carbonate) 1,250 mg PO BID [facility] Last Admin: 07/11/18 08:26 Dose: 1,250 mg Chlorhexidine Gluconate (Peridex) 15 ml SWABMOUTH BID [facility] Last Admin: 07/11/18 08:15 Dose: Not Given Dextrose (Dextrose 50%) 0 ml IV UD PRN PRN Reason: Hypoglycemia Diagnostic Test (Pha) (Accu-Chek) 1 each FS ACHS [facility] Last Admin: 07/11/18 12:05 Dose: 1 each Duloxetine HCl (Cymbalta) 30 mg PO BID [facility] Last Admin: 07/11/18 08:14 Dose: 30 mg Glucose (Insta-Glucose) 15 gm PO PRN PRN PRN Reason: Hypoglycemia Heparin Sodium (Porcine) (Heparin) 5,000 unit SQ Q12 [facility] Last Admin: 07/11/18 08:12 Dose: 5,000 unit Heparin Sodium (Porcine) (Heparin Flush) 2 ml IV Q12 [facility] Last Admin: 07/11/18 08:15 Dose: Not Given Heparin Sodium/Sodium Chloride (Heparin/Ns) 500 mls @ 0 mls/hr IV .Q0M [facility]; Protocol Magnesium Sulfate (Magnesium Sulf 4gm Bag) 100 mls @ 50 mls/hr IV ONCE [facility] Last Infusion: 07/11/18 11:57 Dose: Infused Insulin Glargine (Lantus) 10 unit SQ DAILY [facility] Last Admin: 07/11/18 08:13 Dose: 10 unit Insulin Human Lispro (Humalog) 0 unit SQ ACHS [facility]; Protocol Last Admin: 07/11/18 12:11 Dose: 2 unit Labetalol HCl (Trandate) 0 mg IV Q2HP PRN PRN Reason: Hypertension [facility]othy[facility]ine [facility]) [facility] Last Admin: 07/11/18 08:12 Dose: 125 mcg Lorazepam (Ativan) 0.5 mg IV Q8HP PRN PRN Reason: ANXIETY/SEDATION Last Admin: 07/11/18 00:19 Dose: 0.5 mg Magnesium Oxide (Magnesium Oxide) 400 mg PO TID [facility] Last Admin: 07/11/18 09:45 Dose: 400 mg Morphine Sulfate (Morphine) 1 mg IV Q3HP PRN PRN Reason: PAIN LEVEL > 6 Last Admin: 07/11/18 12:03 Dose: 1 mg Nystatin (Nystatin) 1 dose TOPICAL BID [facility] Last Admin: 07/11/18 09:41 Dose: 1 dose Ondansetron HCl (Zofran) 4 mg IV Q4-6HP PRN PRN Reason: Nausea And Vomiting Pantoprazole [facility]) [facility] Last Admin: 07/11/18 08:12 Dose: 40 mg Polyethylene Glycol (Miralax) 17 gm PO DAILYP PRN PRN Reason: Constipation [facility]) [facility] Last Admin: 07/11/18 08:14 Dose: 20 mg Sodium Chloride (Saline Flush) 10 ml IV Q8 [facility] Last Admin: 07/11/18 05:01 Dose: Not Given Vitamin D (Vitamin D3) 800 unit PO DAILY [facility] Last Admin: 07/11/18 08:14 Dose: 800 unit Medical - PN: A/P - Time Spent With Patient Total time spent is greater than 50% in coordination of care (as documented) at patient's floor/unit and/or counseling patient: - Narrative A/P Narrative: A/P Small bowel obstruction/ s/p lapratomy s/p Mech Vent, s/p extubation 07/06 s/p Hypovooumic shock s/p Acute Kidney Injury Hypomagnesemia Hypocalcemia Hypokalemia Hypoparathyroidism vit d deficiency Hypothryoidism Myasethenia gravis, follows Dr Kirk, on PO prednisone 20mg daily GERD HTN DM Anemia Plan Patient is doing well tolerating oral diet well mg is still low, will continue with aggresive replacement, will benefit with oral supplementation too at discahrge. All home meds resumed Pt was sitting comfortably during morning rounds. anticipate d/c home tomorrow.
[2018-07-11] MEDS: OMEPRAZOLE 20 MG CAPSULE PO SCH (21:12)
[2018-07-12] MEDS: ACETAMINOPHEN W/CODEINE #3 1 TABLET PO PRN (04:15)
[2018-07-12] MEDS: 0.9 % SODIUM CHLORIDE 10 ML SYRINGE IV SCH ×2 (05:07→15:24)
[2018-07-12] MEDS: VITAMIN D3 400 UNIT TABLET PO SCH (08:47)
[2018-07-12] MEDS: OMEPRAZOLE 20 MG CAPSULE PO SCH (08:48)
[2018-07-12] MEDS: DULoxetine 30 MG CAPSULE PO SCH (08:48)
[2018-07-12] MEDS: HEPARIN 5,000 UNIT/ML VIAL SQ SCH (08:48)
[2018-07-12] MEDS: MAGNESIUM OXIDE 400 MG TABLET PO SCH (08:48)
[2018-07-12] MEDS: INSULIN LISPRO 1 UNIT/0.01 ML UNIT SQ SCH ×2 (09:12→12:03)
[2018-07-12] MEDS: predniSONE 20 MG TABLET PO SCH (09:12)
[2018-07-12] MEDS: NYSTATIN POWDER BOTTLE 15GM TOPICAL SCH (09:15)
[2018-07-12] MEDS: CHLORHEXIDINE GLUCONATE 1 ML ORAL.SOL SWABMOUTH SCH (09:21)
[2018-07-12] MEDS: LEVOTHYROXINE 100 MCG VIAL IV SCH (09:47)
[2018-07-12 09:56] LABS: ALT/SGPT 14 U/l (0-40); Albumin 2.9 gm/dL (3.2-5.2); Albumin/Globulin Ratio 1.2 (1.0-2.3); Alkaline Phosphatase 48 U/L (39-117); Bilirubin,Direct < 0.2 mg/dL (0.0-0.3); Blood Urea Nitrogen 9 mg/dl (6-20); Gamma Glutamyl Transpeptidase 31 U/L (5-36); Uric Acid 4.9 mg/dL (2.5-8.0)
--- NOTE | 2018-07-12 09:56 | General Surgery Progress Note ---
Surgical - Auxillary Note - Subjective Patient Information: Note initiated : 07/12/18 at 9:50 am Service Date, if different from initiated Date: [] Patient: Dayanna Stephens 57 y/o F admitted on 07/02/18 for Reports Bowel Obstruction. Chief Complaint: [] Patient sitting up in bed. Says she is feeling well. Tolerated regular food yesterday. No nausea or emesis. Still passing stool and flatus from ostomy. Vital Signs Temp Pulse Resp BP Pulse Ox 98.2 F 74 19 165/92 95 07/12/18 07:03 07/12/18 07:03 07/12/18 07:03 07/12/18 07:03 07/12/18 07:03 Period Temp Pulse Resp BP Sys/Archuleta Pulse Ox Last 24 Hr 98.2 F-99.4 F 70-86 16-20 138-172/82-100 93-95 Intake and Output 07/11/18 07/12/18 07/12/18 21:59 05:59 13:59 Intake Total 1400 / 1400 800 / 800 Output Total 3700 / 3700 1600 / 1600 1000 / 1000 Balance -2300 / -2300 -800 / -800 -1000 / -1000 Weight 268 lb PE: No distress. Appears in good spirits. Chest: clear bilaterally CV: regular rhythm and rate ABD: Soft, non distended and non tender. Incision intact without sign of infection. Patchy dermatitis along incision improving with topical antifungal. Ostomy functioning with semiformed stool in appliance and gas. EXT: warm, no edema. A/P: s/p adhesiolysis and repair of parastomal hernia. Doing well post op with return of bowel function. Tolerating diet. Home today with f/u in clinic in 1 -2 weeks.
--- NOTE | 2018-07-12 10:03 | Discharge Summary ---
Providers - Providers Patient information: Note initiated : 07/12/18 at 9:57 am Service Date, if different from initiated Date: [] Patient: Dayanna Stephens 57 y/o F admitted on 07/02/18 for Reports Bowel Obstruction. Chief Complaint: [] Date of admission: 07/02/18 Discharge date: 07/12/18 Attending physician: Bertha Currie Hospitalization Hospital course: Ms. Pardo was admitted to [facility] on July 02, 2018 with a diagnosis of bowel obstruction. She was taken to the operating room on July 04, 2018 for extensive adhesio lysis and repair of obstructing parastomal hernia. Postoperatively, she remained intubated and was transferred to the ICU where she remained for the subsequent 3 days for vent management with eventual extubation. Hospitalist service was consulted for help with ventilatory management and management of her other comorbid medical issues. They have followed along throughout this hospitalization. From ICUshe was transferred to telemetry status during which time trials of NG tube clamping were performed and tolerated. NG tube was subsequently removed and she was started on clear liquid diet. This was slowly advanced to a low fiber, low-residue diet. She was during this time transferred to the [facility] floor where she continued to do well. She has required supplementation of her calcium. She is a baseline issue for her. She has also required supplementation of her magnesium during this hospitalization and may continue to need this upon discharge-- to be determined by the hospitalist service. She is discharged home on July 12, 2018 with instructions to resume her regular home medications. She is to be on a low residue, low fiber after discharge and slowly advanced to a regular diet as tolerated. She will be scheduled for follow-up visit in surgery clinic with Dr. Currie in 1-2 weeks. Discharge diagnosis: bowel obstruction secondary to parastomal hernia Procedures: Adhesiolysis and repair of parastomal hernia Exam Temp Pulse Resp BP Pulse Ox 98.2 F 74 19 165/92 95 07/12/18 07:03 07/12/18 07:03 07/12/18 07:03 07/12/18 07:03 07/12/18 07:03 Discharge Plan - Patient/Caregiver Discharge Instructions Activity: increase activity as tolerated Diet: Low Fiber Prescriptions: Calcium Carbonate 1,250 mg PO BID #350 oral.susp Magnesium Oxide 400 mg PO TID #90 tab Nystatin 1 dose TOPICAL BID #1 bottle Omeprazole [Prilosec] 20 mg PO BIDAC #60 cap - Follow up Plan Follow up with: Bertha Currie MD [Physician] - Douglas Haque MD [Primary Care Provider] - Disposition: Home, Self-Care Prognosis: Fair Rehab Potential: Fair I certify that the patient requires SNF services.: No Overall status at discharge: patient is progressing back to baseline Pending Studies Resuscitation Status Full Code Diet Consistent Carbohydrate Diet Start SatJul 11 0835 Acetaminophen/Codeine Phosphate (Tylenol #3) 1 - 2 tab PO Q4-6HP PRN PRN Reason: PAIN LEVEL 3-6 Last Admin: 07/12/18 04:15 Dose: 2 tab Admin: 07/11/18 23:25 Dose: 2 tab Admin: 07/11/18 19:05 Dose: 2 tab Admin: 07/11/18 14:34 Dose: 2 tab Admin: 07/11/18 09:42 Dose: 2 tab Calcitriol (Rocaltrol) 0.5 mcg PO TID [facility] Last Admin: 07/11/18 21:11 Dose: 0.5 mcg Admin: 07/11/18 14:34 Dose: 0.5 mcg Admin: 07/11/18 08:15 Dose: 0.5 mcg Admin: 07/10/18 22:10 Dose: 0.5 mcg Calcium Carbonate/Glycine (Calcium Carbonate) 1,250 mg PO BID [facility] Last Admin: 07/11/18 21:12 Dose: 1,250 mg Admin: 07/11/18 08:26 Dose: 1,250 mg Admin: 07/10/18 22:19 Dose: 1,250 mg Chlorhexidine Gluconate (Peridex) 15 ml SWABMOUTH BID [facility] Last Admin: 07/12/18 09:21 Dose: Not Given Admin: 07/11/18 21:14 Dose: Not Given Admin: 07/11/18 08:15 Dose: Admin: 07/10/18 22:11 Dose: 15 ml Diagnostic Test (Pha) (Accu-Chek) 1 each FS ACHS [facility] Last Admin: 07/12/18 08:46 Dose: 1 each Admin: 07/11/18 21:12 Dose: 1 each Admin: 07/11/18 17:45 Dose: 1 each Admin: 07/11/18 12:05 Dose: 1 each Admin: 07/11/18 08:14 Dose: 1 each Admin: 07/10/18 22:14 Dose: 1 each Duloxetine HCl (Cymbalta) 30 mg PO BID [facility] Last Admin: 07/12/18 08:48 Dose: 30 mg Admin: 07/11/18 21:11 Dose: 30 mg Admin: 07/11/18 08:14 Dose: 30 mg Admin: 07/10/18 22:10 Dose: 30 mg Heparin Sodium (Porcine) (Heparin) 5,000 unit SQ Q12 [facility] Last Admin: 07/12/18 08:48 Dose: 5,000 unit Admin: 07/11/18 21:14 Dose: 5,000 unit Admin: 07/11/18 08:12 Dose: 5,000 unit Admin: 07/10/18 22:10 Dose: 5,000 unit Heparin Sodium (Porcine) (Heparin Flush) 2 ml IV Q12 [facility] Last Admin: 07/12/18 08:48 Dose: 2 ml Admin: 07/11/18 21:12 Dose: 2 ml Admin: 07/11/18 08:15 Dose: Admin: 07/10/18 22:10 Dose: Not Given Magnesium Sulfate (Magnesium Sulf 4gm Bag) 100 mls @ 50 mls/hr IV ONCE [facility] Last Infusion: 07/11/18 11:57 Dose: 0 mls/hr Admin: 07/11/18 09:41 Dose: 50 mls/hr Insulin Glargine (Lantus) 10 unit SQ DAILY [facility] Last Admin: 07/11/18 08:13 Dose: 10 unit Insulin Human Lispro (Humalog) 0 unit SQ ACHS [facility]; Protocol Last Admin: 07/12/18 09:12 Dose: Not Given Admin: 07/11/18 21:11 Dose: 2 unit Admin: 07/11/18 17:45 Dose: 2 unit Admin: 07/11/18 12:11 Dose: 2 unit Admin: 07/11/18 08:13 Dose: 2 unit Admin: 07/10/18 22:18 Dose: 2 unit Levothyroxine Sodium (Synthroid) 125 mcg IV QAMAC [facility] Last Admin: 07/12/18 09:47 Dose: 125 mcg Admin: 07/11/18 08:12 Dose: 125 mcg Lorazepam (Ativan) 0.5 mg IV Q8HP PRN PRN Reason: ANXIETY/SEDATION Last Admin: 07/11/18 23:25 Dose: 0.5 mg Admin: 07/11/18 00:19 Dose: 0.5 mg Magnesium Oxide (Magnesium Oxide) 400 mg PO TID [facility] Last Admin: 07/12/18 08:48 Dose: 400 mg Admin: 07/11/18 21:11 Dose: 400 mg Admin: 07/11/18 14:34 Dose: 400 mg Admin: 07/11/18 09:45 Dose: 400 mg Morphine Sulfate (Morphine) 1 mg IV Q3HP PRN PRN Reason: PAIN LEVEL > 6 Last Admin: 07/12/18 09:23 Dose: 1 mg Admin: 07/12/18 02:14 Dose: 1 mg Admin: 07/11/18 20:07 Dose: 1 mg Admin: 07/11/18 12:03 Dose: 1 mg Admin: 07/11/18 05:01 Dose: 1 mg Admin: 07/10/18 22:19 Dose: 1 mg Nystatin (Nystatin) 1 dose TOPICAL BID [facility] Last Admin: 07/12/18 09:15 Dose: 1 dose Admin: 07/11/18 21:13 Dose: 1 dose Admin: 07/11/18 09:41 Dose: 1 dose Omeprazole (Prilosec) 20 mg PO BID [facility] Last Admin: 07/12/18 08:48 Dose: 20 mg Admin: 07/11/18 21:12 Dose: 20 mg Polyethylene Glycol (Miralax) 17 gm PO DAILYP PRN PRN Reason: Constipation Last Admin: 07/11/18 18:06 Dose: 17 gm Prednisone (Prednisone) 20 mg PO QAC [facility] Last Admin: 07/12/18 09:12 Dose: 20 mg Admin: 07/11/18 08:14 Dose: 20 mg Sodium Chloride (Saline Flush) 10 ml IV Q8 [facility] Last Admin: 07/12/18 05:07 Dose: 10 ml Admin: 07/11/18 21:15 Dose: 10 ml Admin: 07/11/18 14:35 Dose: 10 ml Admin: 07/11/18 05:01 Dose: Not Given Admin: 07/10/18 22:11 Dose: Not Given Vitamin D (Vitamin D3) 800 unit PO DAILY [facility] Last Admin: 07/12/18 08:47 Dose: 800 unit Admin: 07/11/18 08:14 Dose: 800 unit Shift Summary 07/11/18 16:10 Shift Summary by Nisreen Larsen Advanced diet to CC and pt tolerating well without any nausea. UP with assist. Pt changed own ostomy bag today. Replaced mag of 1.5 with 4g rider and mag/ox po. Plan to discharge tomorrow. bedside report to follow. Initialized on 07/11/18 16:10 - END OF NOTE
--- NOTE | 2018-07-12 10:28 | Internal Med Progress Note ---
Medical - PN: Subj Patient information: Note initiated : 07/12/18 at 10:25 am Service Date, if different from initiated Date: [] Patient: Dayanna Stephens a 57 y/o F admitted on 07/02/18 for Reports Bowel Obstruction. Chief Complaint: [] Interval history: Ms. Stephens is a 57 year old F With a history of bowel obstructions both small and large. She presented to the ER with abdominal pain for 3 days she had no stool out of her ostomy she had nausea but no vomiting. She is found to have a dilated small bowel in the ED and a massive amount of stool in her colon. There is evidence of parastomal hernia which is felt to be the cause of obstruction. Dr. Currie was contacted. She was admitted and monitored with follow-up studies ordered. Patient failed to progress and up needing urgent laparotomy. She was also found to be hypotensive intraoperatively. Given fluid boluses Hespan. She underwent surgical correction today. Patient was left intubated and sent to the ICU afterwards. 07/05 had some increased ostomy outpt overnight, no acute issues. nods yes to abdominal pain and sore throat from ETT. in room. good UOP. 07/06 just extubated, feels poorly as expected but better with the ett out. has sore throat and headache and abdominal pain. 07/07 Feeling a little better each day, abdominal pain incision site. More ostomy output overnight. 07/08 Has abdominal pain and chronic ankle pain. Overall feeling better, gradually each day. 07/09 Patient seen examined, no acute issues, still has abdominal pain, working with PT, slow improvement low lyle, low mg, low k noted will replace start on oral cymbalta, start on oral calcitriol advised pt to follow up with neurologist, she is on quite a high dose of prednisone for a vry long time for her Myasthenia Dr Kirk is her neurologist. 07/10 Pt seen examined, no acute overnight issues, hemodynamically stable, no events on tele Mg still low will replace, lyle impriving pt now tolerating oral liquid diet, resume oral meds, switch IV solumedrol to po prednisone. 07/11 Patient seen examined, no acute overnight events tolerating po well mg low, will continue aggressive replacement 07/12 Pt seen exained, no acute issues mg contineus to be low, on aggresive replacement ok to d/c at this time, as we expect a long time for mg levels to come back to normal d/c with mag oxide 400mg tid. Pertinent ROS: Denies headache, dizziness Denies chest pain, palpitations Denies cough or shortness of breath Denies abdominal pain, nausea or vomiting. - Constitutional Vitals: Vital Signs Temp Pulse Resp BP Pulse Ox 98.2 F 74 19 165/92 95 07/12/18 07:03 07/12/18 07:03 07/12/18 07:03 07/12/18 07:03 07/12/18 07:03 Period Temp Pulse Resp BP Sys/Archuleta Pulse Ox Last 24 Hr 98.2 F-99.4 F 70-86 16-20 138-172/82-100 93-95 Intake and Output 07/11/18 07/12/18 07/12/18 21:59 05:59 13:59 Intake Total 1400 / 1400 800 / 800 Output Total 3700 / 3700 1600 / 1600 1000 / 1000 Balance -2300 / -2300 -800 / -800 -1000 / -1000 Weight 268 lb Intake & Output: Intake & Output 07/11/18 07/12/18 07/12/18 21:59 05:59 13:59 Intake Total 1400 / 1400 800 / 800 Output Total 3700 / 3700 1600 / 1600 1000 / 1000 Balance -2300 / -2300 -800 / -800 -1000 / -1000 Weight 268 lb Intake: Oral 1400 / 1400 800 / 800 Output: Urine Catheter Amount 1000 / 1000 Void Amount 3700 / 3700 1350 / 1350 # of times incontinent of urine 0 / 0 Stool 250 / 250 Other: Urine Appearance Clear Clear Clear Urine Color Pale Pale Light Shwetha Urine Odor Normal Normal Normal Stool Color Brown Stool Consistency Liquid # Voids 1 Exam: Constitutional; Afebrile, cooperative, alert, not in distress. Respiratory system: Air Entry equal on both sides, No crackles or wheezing, no rhonchi. CVS- Rate rhythm regular, S1,S2 heard, no gallop, no rub. [employer]- AOOx3, moving all extremities, no gross focal deficit noted. Medical - PN: Obj Da - Labs CBC & Chem 7: 07/09/18 03:45 07/12/18 08:04 Labs: Abnormal Lab Results 07/12/18 07/11/18 07/10/18 08:04 04:28 06:12 BUN 4 L 3 L Glucose 117 H 141 H 132 H Calcium 8.5 L 7.2 L 6.3 L Phosphorus 5.1 H 4.7 H Magnesium 1.4 L 1.5 L 1.5 L Alkaline Phosphatase 37 L Lactate Dehydrogenase 270 H Total Protein 5.3 L 5.0 L 4.3 L Albumin 2.9 L 2.6 L 2.3 L Globulin 2.0 L Triglycerides 685 H 514 H 431 H Meds: Medications Acetaminophen/Codeine Phosphate (Tylenol #3) 1 - 2 tab PO Q4-6HP PRN PRN Reason: PAIN LEVEL 3-6 Last Admin: 07/12/18 04:15 Dose: 2 tab Calcitriol (Rocaltrol) 0.5 mcg PO TID [facility] Last Admin: 07/11/18 21:11 Dose: 0.5 mcg Calcium Carbonate/Glycine (Calcium Carbonate) 1,250 mg PO BID [facility] Last Admin: 07/11/18 21:12 Dose: 1,250 mg Chlorhexidine Gluconate (Peridex) 15 ml SWABMOUTH BID [facility] Last Admin: 07/12/18 09:21 Dose: Not Given Dextrose (Dextrose 50%) 0 ml IV UD PRN PRN Reason: Hypoglycemia Diagnostic Test (Pha) (Accu-Chek) 1 each FS ACHS [facility] Last Admin: 07/12/18 08:46 Dose: 1 each Duloxetine HCl (Cymbalta) 30 mg PO BID [facility] Last Admin: 07/12/18 08:48 Dose: 30 mg Glucose (Insta-Glucose) 15 gm PO PRN PRN PRN Reason: Hypoglycemia Heparin Sodium (Porcine) (Heparin) 5,000 unit SQ Q12 [facility] Last Admin: 07/12/18 08:48 Dose: 5,000 unit Heparin Sodium (Porcine) (Heparin Flush) 2 ml IV Q12 [facility] Last Admin: 07/12/18 08:48 Dose: 2 ml Heparin Sodium/Sodium Chloride (Heparin/Ns) 500 mls @ 0 mls/hr IV .Q0M [facility]; Protocol Magnesium Sulfate (Magnesium Sulf 4gm Bag) 100 mls @ 50 mls/hr IV ONCE [facility] Last Infusion: 07/11/18 11:57 Dose: Infused Insulin Glargine (Lantus) 10 unit SQ DAILY [facility] Last Admin: 07/11/18 08:13 Dose: 10 unit Insulin Human Lispro (Humalog) 0 unit SQ [facility]; Protocol Last Admin: 07/12/18 09:12 Dose: Not Given Labetalol HCl (Trandate) 0 mg IV Q2HP PRN PRN Reason: Hypertension Levothyroxine Sodium (Synthroid) 125 mcg IV QAMAC [facility] Last Admin: 07/12/18 09:47 Dose: 125 mcg Lorazepam (Ativan) 0.5 mg IV Q8HP PRN PRN Reason: ANXIETY/SEDATION Last Admin: 07/11/18 23:25 Dose: 0.5 mg Magnesium Oxide (Magnesium Oxide) 400 mg PO TID [facility] Last Admin: 07/12/18 08:48 Dose: 400 mg Morphine Sulfate (Morphine) 1 mg IV Q3HP PRN PRN Reason: PAIN LEVEL > 6 Last Admin: 07/12/18 09:23 Dose: 1 mg Nystatin (Nystatin) 1 dose TOPICAL BID [facility] Last Admin: 07/12/18 09:15 Dose: 1 dose Omeprazole (Prilosec) 20 mg PO BID [facility] Last Admin: 07/12/18 08:48 Dose: 20 mg Ondansetron HCl (Zofran) 4 mg IV Q4-6HP PRN PRN Reason: Nausea And Vomiting Polyethylene Glycol (Miralax) 17 gm PO DAILYP PRN PRN Reason: Constipation Last Admin: 07/11/18 18:06 Dose: 17 gm Prednisone (Prednisone) 20 mg PO [facility] Last Admin: 07/12/18 09:12 Dose: 20 mg Sodium Chloride (Saline Flush) 10 ml IV Q8 [facility] Last Admin: 07/12/18 05:07 Dose: 10 ml Vitamin D (Vitamin D3) 800 unit PO DAILY [facility] Last Admin: 07/12/18 08:47 Dose: 800 unit Medical - PN: A/P - Time Spent With Patient Total time spent is greater than 50% in coordination of care (as documented) at patient's floor/unit and/or counseling patient: - Narrative A/P Narrative: A/P Small bowel obstruction/ s/p lapratomy s/p Mech Vent, s/p extubation 07/06 s/p Hypovooumic shock s/p Acute Kidney Injury Hypomagnesemia Hypocalcemia Hypokalemia Hypoparathyroidism vit d deficiency Hypothryoidism Myasethenia gravis, follows Dr Kirk, on PO prednisone 20mg daily GERD HTN DM Anemia Plan Pt doing well stable for d/c replace mg as outpatient continue all home meds as before follow up with PCP recommenced pt to follow up with neurology Recommened PCP check chemistry/ Mg level in 2 weeks after discharge. if pt mg continues to be low, she may benefit from amiloride/ nephrology evaluation. I will let the PCP decide the further course of treatment. .
[2018-07-12] MEDS: INSULIN GLARGINE, HUMAN 1 UNIT/0.01 ML SQ SCH (10:47)
[2018-07-12] MEDS: CALCIUM CARBONATE 1,250 MG/5 ML ORAL.SUSP PO SCH (10:47)
[2018-07-12] MEDS: CALCITRIOL 0.25 MCG CAPSULE PO SCH (10:48)
[2018-07-12] MEDS: MAGNESIUM SULFATE IN WATER 100 ML IV SCH (11:15)
[2018-07-12] MEDS ORDERED: HEPARIN SODIUM,PORCINE/PF 500 UNIT/5 ML SYRINGE IV ONE (11:20)
--- NOTE | 2018-07-15 14:35 | Operative Note ---
DATE OF OPERATION: 07/04/2018 PREOPERATIVE DIAGNOSIS: Small bowel obstruction. POSTOPERATIVE DIAGNOSIS: Parastomal hernia with small-bowel obstruction. PROCEDURE: Exploratory laparotomy with adhesiolysis and repair of parastomal hernia with mesh graft. SURGEON: Bertha Currie M.D. FINDINGS: Dense adhesions, large parastomal hernia with obstructed small bowel and hernia pouch, diffusely dilated small bowel and colon, impaction of stool in distal colon. DESCRIPTION OF PROCEDURE: Under general anesthesia, the patient's stoma was closed using running 2-0 silk. The abdomen was then prepped and draped in the sterile field. Time-out procedure was carried out as per protocol. Midline incision was made. There were dense adhesions in the anterior abdomen of the omentum and bowel. These adhesions were taken down using Metzenbaum scissors and electrocautery. Once this was done, I was able to get free access to the peritoneal cavity beneath the first layer of densely adhesed bowel. Attention was turned to the left lower quadrant. I was able to find a dilated loop of bowel that was leading into the left lower quadrant. This was dissected and it was the bowel that was densely adherent in the hernia pouch. The adhesions were taken down and the bowel was released and the obstruction was released. The bowel was then sequentially dissected until it was freed from ligament of Treitz to the ileocecal valve. All of the bowel was dilated, even the bowel that was distal to the point of obstruction. The colon was also severely dilated and was densely impacted with hard stool. Because of the dilation of the bowel, it was elected not to do a snug closure of the parastomal defect. A sheet of Surgimesh was chosen and was sutured across the fascial defect to restrict the opening where the bowel crossed the abdominal wall. This was initially positioned with the tacking device. Once it was positioned it was then sutured to the fascia using running 2-0 Prolene. The lower margin was sutured to the fascia and the wall of the colon to prevent herniation of small bowel around the colon. It was expected that this would leave a small defect around the colon in the abdominal wall that would eventually heal. The bowel was then inspected. Fluid was pushed from the small bowel to the cecum. During the procedure over 2000 mL of liquid was suctioned through the nasogastric tube. Irrigation was carried out. Sponge, needle, instrument blade counts were verified as correct. The fascia was closed with running #1 Prolene. Subcutaneous tissue was closed with 2-0 Monocryl. Skin was closed with kori. Tegaderm dressing was placed over the incision at the stoma was opened. The large hard balls of stool that were pushed into the stoma were removed. The stoma appliance was placed. The patient tolerated the procedure well. Because she had received such a large volume of fluid it was elected to leave her sedated and intubated. She was transferred to the Intensive Care Unit in stable condition. LCS:donovan Job ID: [id number] Doc ID: [id number] Bertha Currie M.D.
== END 2018-07-12 12:25 | disposition home or self-care (01) | DRG 335 ==
LOC: ED 15:04 → MEDSUR 18:40 → ICU 07-04 13:31 → MEDSUR 07-10 18:05
PROVIDERS: ADMIT Family Medicine Adult Medicine; ATTEND Surgery

== ENCOUNTER 2018-07-15 | Inpatient (IN) ==
[2018-07-15] MEDS ORDERED: ONDANSETRON 4 MG/2 ML VIAL IV ONE (00:22)
[2018-07-15] MEDS ORDERED: LACTATED RINGERS 1,000 ML IV ONE (00:22)
--- NOTE | 2018-07-15 00:30 | Emergency Department Note ---
Nausea/Vomiting/Diarrhea HPI - General Chief complaint: Nausea/Vomiting/Diarrhea Stated complaint: Nausea, Abd swelling Time Seen by Provider: 07/15/18 00:08 Mode of arrival: wheelchair - History of Present Illness HPI Narrative: 57-year-old female with nausea and vomiting. She has a history of bowel obstructions or pseudo-bowel obstructions and an ostomy placed September 2017 in the left lower quadrant. She had 2-1/2 feet of her bowel removed and there was difficulty providing a good anastomosis bowel to bowel. She reports that she is passing stool products into her ostomy bag as well as gas. There is no specific diarrhea or constipation problem. She has felt a little sweaty today. Pain is 8 out of 10 and similar to before surgery. She is mostly nauseated but no emesis except a little bit. She had a little bit on Saturday evening, the . She had promethazine around 10:20 PM this evening. She gets cortisone daily because of her myasthenia gravis. REVIEW OF SYSTEMS: No chest pain. No cough. Some shortness of breath sensation primarily due to the pain of taking good breaths. No dysuria. She has had some frequency but she attributes this to getting plenty of fluid at the time they did her surgery , i.e., 5 or 7 L up. She was on a ventilator for 3 days. No headaches but feels weak all over as well as no dizziness. Denies anxiety. Has significant depression. - Related Data Home Medications Medication Instructions Recorded Confirmed DULoxetine [Cymbalta] 30 mg PO BID 11/30/16 07/15/18 Levothyroxine [Synthroid] 250 mcg PO QAMAC 08/20/17 07/15/18 Acetaminophen W/Codeine #3 2 cap PO Q4-6HP PRN 09/18/17 07/15/18 [Tylenol #3] Naproxen (Pp) [Aleve (Pp)] 2 tab PO BID PRN 09/18/17 07/15/18 Polyethylene Glycol 3350 [Miralax] 17 gm PO BID 09/18/17 07/15/18 calcitriol 0.25 mcg capsule 0.5 mcg PO TID cap 11/05/17 07/15/18 nitroglycerin 0.4 mg sublingual 0.4 mg SUBLINGUAL Q5M PRN 11/05/17 07/15/18 tablet Previous Rx's Medication Instructions Recorded predniSONE [Prednisone] 20 mg PO QAC #4 tab 05/18/16 Lisinopril [Zestril] 20 mg PO BID #60 tab 12/06/17 Promethazine [Phenergan] 25 mg [place] Q4HP PRN #30 supp.rect 01/08/18 Calcium Carbonate 1,250 mg PO BID #350 oral.susp 07/12/18 Magnesium Oxide 400 mg PO TID #90 tab 07/12/18 Nystatin 1 dose TOPICAL BID #1 bottle 07/12/18 Omeprazole [Prilosec] 20 mg PO BIDAC #60 cap 07/12/18 Vitamin D3 800 unit PO DAILY #0 tab 07/12/18 Allergies Allergy/AdvReac Type Severity Reaction Status Date / Time Sulfa (Sulfonamide Allergy Severe Anaphylaxis Verified 07/02/18 15:11 Antibiotics) metoclopramide [From Reglan] AdvReac Intermediate Anxiety Verified 07/02/18 15: 11 adhesive tape AdvReac Mild Blister Verified 07/08/18 11:22 steri strips Allergy Severe Blister Uncoded 03/17/18 11:09 Past Medical History - Past Medical History PMF Narrative: All Active Problems (Last Reviewed 03/17/18 @ 11:10 by Jayla Hay CMA) Chronic use of steroids (Acute) Small bowel obstruction due to adhesions (Acute) Chronic intestinal pseudo-obstruction (Acute) Nausea & vomiting (Acute) Abdominal pain (Acute) Bowel obstruction (Acute) Nausea (Acute) Constipation due to neurogenic bowel (Acute) Small bowel obstruction (Acute) Encounter for care related to Port-a-Cath (Chronic) Hypocalcemia (Acute) Ileus (Acute) Abnormal liver enzymes (Acute) Obstruction of descending colon (Acute) Small bowel obstruction due to postoperative adhesions (Acute) Foot sprain (Acute) Anaphylaxis (Acute) Adverse reaction to drug (Acute) Severe sepsis (Acute) Pyelonephritis (Acute) Pneumonia (Acute) Myasthenia gravis (Acute) Polyglandular autoimmune syndrome (Chronic) Sarcoidosis (Acute) Achalasia and cardiospasm (Acute) Hypothyroidism (Acute) UTI (urinary tract infection) (Acute) Infiltrate of lung present on imaging of chest (Acute) Small bowel obstruction, partial (Acute) Pancreatitis (Acute) Myasthenia gravis (Acute) Volume depletion (Acute) Supraventricular tachycardia (Acute) 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) Small bowel obstruction (Acute) Chronic intestinal pseudo-obstruction (Acute) Hypertension (Chronic) Past Surgical History (Last Reviewed 03/17/18 @ 11:10 by Jayla Hay CMA) History of exploratory laparotomy (Acute) History of exploratory laparotomy (Acute) Medical history: Reports: COPD, hypertension, hypothyroidism, other (Connective tissue diseases: Sjogren's, sarcoidosis, myasthenia gravis. Achalasia. Small bowel obstructions. 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 SVT. Chronic prednisone.). Denies: cancer, CVA, DM, myocardial infarction Psychiatric history: Reports: anxiety, depression [employer]ING SU[employer]OR history: Reports: non-contributory Surgical history ED: Reports: colectomy, colostomy, other (Adhesive lysis on 10/17 and 12/01/2017) - Social History smoking status: Former smoker Alcohol use: Reports: None Drug use: Reports: none. Denies: marijuana Physical Exam Limitations: no limitations General appearance: alert, in distress (Intermittent moans and exclamations of discomfort regarding her abdominal pain.) Head: atraumatic, normocephalic Eye: Present: EOMI ENT: mucous membranes dry (Mild) Neck: Present: trachea midline. Absent: lymphadenopathy, thyromegaly Respiratory: Present: normal lung sounds bilaterally. Absent: respiratory distress, wheezes, stridor, accessory muscle use, prolonged expiratory phase Cardiovascular: Present: regular rate, normal rhythm. Absent: systolic murmur, diastolic murmur Abdominal: Present: soft, distention, tenderness, rebound. Absent: organomegaly , mass Neurological: Present: alert, oriented X3 Psychiatric: Present: normal affect, normal mood, serious Skin: Present: warm, dry Course Course Narrative: 12:15 AM recurrent abdominal pain with a history of bowel obstructions, surgery, ostomy, etc. Suspicious for recurrence. Will do CT scan to be clear. IV fluids, ondansetron and hydromorphone. Vital Signs Temperature 99.4 F H 07/15/18 00:01 Pulse Rate 111 H 07/15/18 00:01 Respiratory Rate 22 07/15/18 00:01 Blood Pressure 187/97 07/15/18 00:01 Pulse Oximetry (%) 98 07/15/18 00:01 Temperature 98.6 F 07/15/18 04:00 Pulse Rate 111 H 07/15/18 04:00 Respiratory Rate 18 07/15/18 04:00 Blood Pressure 160/90 07/15/18 04:00 Pulse Oximetry (%) 96 07/15/18 04:00 Nausea/Vomiting/Diarrhea - Lab Data Lab results reviewed: Yes I reviewed the patient's lab results. Result diagrams: 07/15/18 00:35 07/15/18 00:35 Lab Results 07/15/18 07/15/18 Range/Units 00:35 00:35 WBC 9.6 (4.5-11.0) K/mcL RBC 4.31 (4.00-5.20) M/mcL Hgb 11.6 L (12.0-15.0) g/dL Hct 36.3 (36.0-48.0) % MCV 84.3 (80.0-100.0) fL MCH 27.0 (26.0-34.0) pg MCHC 32.1 (31.0-36.0) g/dL RDW 16.3 H (11.5-14.5) % Plt Count 432 (140-440) K/mcL MPV 7.9 (7.4-10.4) fL Gran % 76.8 (38.0-78.0) % Lymph % (Auto) 15.8 (15.5-49.0) % Gallia % (Auto) 6.1 (1.0-12.0) % Eos % (Auto) 1.0 (0.0-7.0) % Baso % (Auto) 0.3 (0.0-2.0) % Gran # 7.4 (1.8-8.0) K/mcL Lymph # (Auto) 1.5 (1.5-4.8) K/mcL Gallia # (Auto) 0.6 (0.1-0.9) K/mcL Eos # (Auto) 0.1 (0.0-0.7) K/mcL Baso # (Auto) 0 (0.0-0.3) K/mcL Sodium 141 (133-145) mmol/L Potassium 5.0 (3.3-5.1) mmol/L Chloride 99 (96-108) mmol/L Carbon Dioxide 27 (22-30) mmol/L Anion Gap 15.0 (8-16) BUN 15 (6-20) mg/dl Creatinine 0.9 (0.6-1.1) mg/dl GFR Calculation 71 Glucose 162 H (70-105) mg/dL Calcium 9.2 (8.6-10.4) mg/dl Total Bilirubin < 0.2 (0.0-1.0) mg/dL AST 11 (0-37) U/l ALT 22 (0-40) U/l Alkaline Phosphatase 58 (39-117) U/L C-Reactive Protein 0.6 (0.0-0.8) mg/dl Total Protein 6.5 (5.9-8.4) gm/dL Albumin 3.6 (3.2-5.2) gm/dL Globulin 2.9 (2.2-3.7) gm/dL Albumin/Globulin Ratio 1.2 (1.0-2.3) Lipase 26 (7-60) U/L - Radiology Data Radiology results reviewed: Yes I reviewed the patient's radiology results. Disposition Pt seen by RAIL CAR UNLOADER/PA only: No Clinical Impression: Small bowel obstruction Summary: Patient's labs are fairly unremarkable. CT scan demonstrated a partial small bowel obstruction. Case was discussed with Dr. Currie who indicates appropriateness for admission, nasogastric tube, Zosyn and he will follow-up in the morning. Pain meds and nausea medicines also made available. Disposition: Xfer As Inpt ([facility]) Condition: Undetermined
[2018-07-15] MEDS: HYDROmorphone 2 MG/ML VIAL IV PRN ×8 (00:48→15:50)
[2018-07-15] MEDS ORDERED: PROMETHAZINE 25 MG/ML VIAL IV ONE (01:47)
[2018-07-15 02:06] LABS: Basophils # (Auto) 0 K/mcL (0.0-0.3); Basophils % (Auto) 0.3 % (0.0-2.0); Eosinophils # (Auto) 0.1 K/mcL (0.0-0.7); Granulocytes % (Auto) 76.8 % (38.0-78.0); Lymphocytes # (Auto) 1.5 K/mcL (1.5-4.8); Lymphocytes % (Auto) 15.8 % (15.5-49.0); Mean Cell Volume 84.3 fL (80.0-100.0); Mean Corpuscular HGB Conc 32.1 g/dL (31.0-36.0); Monocytes # (Auto) 0.6 K/mcL (0.1-0.9); Monocytes % (Auto) 6.1 % (1.0-12.0); Platelet Count 432 K/mcL (140-440); RBC 4.31 M/mcL (4.00-5.20); Red Cell Distribution Width 16.3 % (11.5-14.5)
[2018-07-15 02:09] LABS: ALT/SGPT 22 U/l (0-40); Albumin 3.6 gm/dL (3.2-5.2); Albumin/Globulin Ratio 1.2 (1.0-2.3); Alkaline Phosphatase 58 U/L (39-117); Blood Urea Nitrogen 15 mg/dl (6-20); C-Reactive Protein 0.6 mg/dl (0.0-0.8); Lipase 26 U/L (7-60)
[2018-07-15] MEDS ORDERED: HYDROmorphone 2 MG/ML VIAL IV PRN (02:25)
[2018-07-15] MEDS ORDERED: PROMETHAZINE 25 MG/ML VIAL IV PRN (02:26)
[2018-07-15] MEDS ORDERED: PIPERACILLIN SODIUM/TAZOBACTAM 3.375 GM in DEXTROSE 5% IN WATER 50 ML IV ONE (02:51)
[2018-07-15] MEDS: PIPERACILLIN SODIUM/TAZOBACTAM 3.375 GM in DEXTROSE 5% IN WATER 50 ML IV SCH ×3 (03:55→22:25)
[2018-07-15] MEDS: 0.9 % SODIUM CHLORIDE 10 ML SYRINGE IV PRN ×4 (07:25→12:52)
--- NOTE | 2018-07-15 07:53 | Cat Scan Report ---
CLINICAL INFORMATION: Abdominal pain and distention. Prior surgery 1.5 weeks ago for SBO and hernia repair. COMPARISON: 07/02/2018 TECHNIQUE: 0.625 mm helical slices were obtained from the mid heart through the subtrochanteric regions. Following reconstruction, 2.5 mm sagittal, coronal and axial reformatted images were processed and reviewed at bone and soft tissue windows.The exam was performed using radiation dose optimization techniques including, but not limited to, automated exposure control, adjustment of the mA and/or kV according to patient size and use of iterative reconstruction technique. FINDINGS: Lung bases show mild bibasilar atelectasis. Tiny right pleural effusion noted. The heart is grossly normal in size configuration. Images should the abdomen show the gallbladder is surgically absent. The intrahepatic and extrahepatic bile ducts are normal caliber: CBD is 6 mm. The noncontrasted liver, both kidneys, adrenal glands, spleen, pancreas and aorta are normal in size configuration and attenuation without focal lesion. Images through the pelvis show urinary bladder to be normal. Anteflexed uterus is normal in size for postmenopausal woman the ovaries are normal. The stomach, duodenum and proximal jejunum are moderately dilated to a transition point in the mid jejunum (coronal image 85, axial image 122 and sagittal image 124). In this region, there is abrupt tapering likely due to adhesion or stricture. The distal small bowel is decompressed and there is less than expected stool is present within the colon. The distal descending colon is swung into a colostomy in the left lower quadrant - as previously seen. The peristomal hernia, previously seen, which consisted of small bowel is been successfully surgically repaired. A 4.3 cm seroma in Camper's fascia adjacent to the colostomy is now seen. Baez's pouch of the sigmoid and rectum seen as before. No free air or adenopathy. Midline laparotomy incision noted. IMPRESSION: Moderate recurrent partial small bowel obstruction due to adhesion or stricture in the mid jejunum. No evidence of third spacing or free air. Successful interval repair of parastomal hernia at the left lower quadrant. There is a 4.3 cm seroma in Camper's fascia adjacent to the colostomy. The descending colon swung into the left lower quadrant colostomy and Wilberto's colostomy created of the rectosigmoid. Mild esophageal dilatation seen both on the current and previous abdominal CT. Consider: Upper GI and small bowel follow-through to concomitantly evaluate potential distal esophageal stricture and also determine the physiologic significance of the mid jejunal adhesion or stricture resulting in partial small bowel obstruction Interpreted and Authenticated by: All Lundberg 07/15/18
[2018-07-15] MEDS: 0.9 % SODIUM CHLORIDE 1,000 ML IV SCH ×3 (08:54→22:27)
[2018-07-15] MEDS ORDERED: ENOXAPARIN 40 MG/0.4 ML SYRINGE SQ ONE (11:53)
[2018-07-15] MEDS ORDERED: DIATRIZOATE MEGLU/DIATRIZO SOD 30 ML BOTTLE PO ONE (13:26)
--- NOTE | 2018-07-15 14:36 | XRay Report ---
CLINICAL INFORMATION: Dilated esophagus and also partial small bowel obstruction the mid jejunum. TECHNIQUE: Exam was performed with an NG tube in place which diminished the quality of the esophagram portion of the study modestly. Water-soluble enteric contrast was ingested under fluoroscopic observation and images were obtained in the esophagus stomach and small bowel. COMPARISON: None. FINDINGS: The esophagus is moderately dilated with diminished primary peristalsis and tertiary discoordinated contractions. The lower esophageal sphincter demonstrates incomplete opening. Findings are suggestive of achalasia and presbyesophagus. Stomach is grossly normal in size and configuration with normal rugal folds. The duodenum and proximal jejunum are moderately dilated to the level of the mid jejunum where there is abrupt tapering due to either a stricture or adhesion. There is no contrast in the distal jejunum and ileum even on the four hour delayed films. IMPRESSION: 1. High-grade mid jejunal obstruction ostensibly due to a adhesion or stricture. No enteric contrast noted in the distal small bowel on four hour delayed films 2. Probable achalasia featuring diminished primary peristaltic wave and lower esophageal sphincter spasm. The esophagram portion of the study suboptimal due to presence of an indwelling NG tube. Consider upper endoscopy and manometric measurements. Patient claims to have a history of dysphagia Interpreted and Authenticated by: All Lundberg 07/15/18
--- NOTE | 2018-07-15 15:39 | General Surg History&Physical ---
History of Present Illness Patient information: Note initiated : 07/15/18 at 3:37 pm Service Date, if different from initiated Date: [] Patient: Dayanna Stephens a 57 y/o F admitted on 07/15/18 for Nausea, Abd Swelling. Chief Complaint: [] HPI: Ms. Stephens is a 57 year old F was admitted with recurrent intestinal obstruction, complicated by chronic intestinal pseudoobstruction. The patient has a history of chronic recurrent obstruction of small bowel and colon. She was admitted 02 July through July 01 for obstruction due to parastomal hernia. She underwent adhesiolysis with repair of parastomal hernia on 04 July. She did well and was discharged on the tolerating regular diet and having regular bowel movements. Since getting home she has had slow decrease in output through her stoma. She represents with dilated small bowel and colonic loops with possible area of partial obstruction and midgut. Patient is admitted and will undergo small bowel follow-through to try to evaluate the degree of obstruction. Review of Systems - Constitutional headache(s), malaise, night sweats, weakness - EENT Nose, mouth and throat: dizziness, headache(s) - Cardiovascular dyspnea on exertion, palpatations, rapid heart rate - Respiratory dyspnea on exertion - Gastrointestinal abdominal pain, bloating, change in stool character, constipation, early satiety , nausea, vomiting - Musculoskeletal arthralgias, joint swelling, muscle weakness, myalgias, stiffness - Integumentary no bleeding lesions, no new lesions, no pruritus, no rash - Neurological headache(s), no confusion, no dizziness - Psychiatric depression - Endocrine excessive sweating, heat intolerance, palpitations - Hematologic/Lymphatic no easy bleeding, no easy bruising, no lymphadenopathy - Allergic/Immunologic no tongue swelling, no throat swelling, no uticaria, no wheezing, no lip swelling Past History Past medical history: Chronic obstructive lung disease. Sjgren syndrome. Chronic intestinal pseudoobstruction. Hypothyroidism. Osteoarthritis. History of achalasia. Myasthenia gravis. History of sarcoidosis Past surgical history: Exploratory laparotomy with lysis of adhesions 2. Exploratory laparotomy with adhesion lysis and repair of parastomal hernia. Sigmoid colectomy with colostomy. Hello myotomy with toupee fundoplication.. Left knee meniscectomy. Cholecystectomy Past family history: Coronary artery disease. Past social history: . Former smoker. Social drinker. Denies drug use Medications and Allergies Home Medications Medication Instructions Recorded Confirmed Type predniSONE [Prednisone] 20 mg PO QAMCC #4 tab 05/18/16 07/15/18 Rx DULoxetine [Cymbalta] 30 mg PO BID 11/30/16 07/15/18 History Levothyroxine [Synthroid] 250 mcg PO QAMAC 08/20/17 07/15/18 History Acetaminophen W/Codeine #3 2 cap PO Q4-6HP PRN 09/18/17 07/15/18 History [Tylenol #3] Naproxen (Pp) [Aleve (Pp)] 2 tab PO BID PRN 09/18/17 07/15/18 History Polyethylene Glycol 3350 [Miralax] 17 gm PO BID 09/18/17 07/15/18 History calcitriol 0.25 mcg capsule 0.5 mcg PO TID cap 11/05/17 07/15/18 History nitroglycerin 0.4 mg sublingual 0.4 mg SUBLINGUAL Q5M PRN 11/05/17 07/15/18 History tablet Lisinopril [Zestril] 20 mg PO BID #60 tab 12/06/17 07/15/18 Rx Promethazine [Phenergan] 25 mg [place] Q4HP PRN #30 supp.rect 01/08/18 07/15/18 Rx Calcium Carbonate 1,250 mg PO BID #350 oral.susp 07/12/18 07/15/18 Rx Magnesium Oxide 400 mg PO TID #90 tab 07/12/18 07/15/18 Rx Nystatin 1 dose TOPICAL BID #1 bottle 07/12/18 07/15/18 Rx Omeprazole [Prilosec] 20 mg PO BIDAC #60 cap 07/12/18 07/15/18 Rx Vitamin D3 800 unit PO DAILY #0 tab 07/12/18 07/15/18 Rx Allergies Allergy/AdvReac Type Severity Reaction Status Date / Time Sulfa (Sulfonamide Allergy Severe Anaphylaxis Verified 07/02/18 15:11 Antibiotics) metoclopramide [From Reglan] AdvReac Intermediate Anxiety Verified 07/02/18 15: 11 adhesive tape AdvReac Mild Blister Verified 07/08/18 11:22 steri strips Allergy Severe Blister Uncoded 03/17/18 11:09 Exam Temp Pulse Resp BP Pulse Ox 97.0 F 111 H 16 124/70 72 L 07/15/18 12:00 07/15/18 04:00 07/15/18 12:00 07/15/18 12:00 07/15/18 12:00 - General physical appearance well developed, well nourished, no distress - Eyes PERRL, normal ocular movement. negative: icteric - ENT normal pinna, normal nares, normal mucosa, no hearing loss, no congestion - Head Head exam IM: Present: atraumatic, normal inspection, normocephalic - Neck no masses, no bruits, trachea midline, no lymphadectomy, no venous distension - Cardiovascular Cardiovascular exam IM: Present: normal rate and rhythm, +S1, tachycardia. Absent: JVD - Respiratory normal expansion, normal respiratory effort, clear to percussion, clear to auscultation - Abdomen Abdomen: Present: soft, tender (diffusely tender abdomen with distention Diffusely. Healed midline incision; stoma left lower quadrant with air and stool in colostomy appliance hyperactive bowel sounds), bowel sounds Hernia: Present: none - Genitourinary Present: normal external genitalia - Integumentary Present: no rash, no growths, no abnormal pigmentation - Neurologic Present: normal coordination, normal sensation - Musculoskeletal Present: normal gait, normal posture - Psychiatric Present: oriented to time, oriented to person, oriented to place, speech is normal, memory intact Assessment and Plan (1) Chronic intestinal pseudo-obstruction Upper GI with small bowel follow-through Status: Acute (2) Constipation due to neurogenic bowel Start MiraLAX, unable to take by mouth Status: Acute (3) Hypocalcemia Replace with IV dosing as needed Status: Acute (4) Volume depletion IV hydration with saline as needed Status: Acute (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
[2018-07-15] MEDS ORDERED: fentaNYL 100 MCG/2 ML VIAL IV PRN (15:55)
[2018-07-15] MEDS: PROMETHAZINE 25 MG/ML VIAL IV PRN ×2 (16:15→22:23)
[2018-07-15] MEDS: PANTOPRAZOLE 40 MG VIAL IV SCH (18:00)
[2018-07-15] MEDS ORDERED: 0.9 % SODIUM CHLORIDE 500 ML IV ONE (21:02)
[2018-07-15] MEDS: methylPREDNISolone SOD SUCC 40 MG/ML VIAL IV SCH (21:15)
[2018-07-15] MEDS: fentaNYL 100 MCG/2 ML VIAL IV PRN (22:19)
[2018-07-16] MEDS: fentaNYL 100 MCG/2 ML VIAL IV PRN ×5 (02:26→20:37)
[2018-07-16] MEDS: 0.9 % SODIUM CHLORIDE 1,000 ML IV SCH ×6 (05:35→23:25)
[2018-07-16] MEDS: PIPERACILLIN SODIUM/TAZOBACTAM 3.375 GM in DEXTROSE 5% IN WATER 50 ML IV SCH ×3 (06:06→21:52)
[2018-07-16] MEDS: methylPREDNISolone SOD SUCC 40 MG/ML VIAL IV SCH ×2 (09:06→21:49)
[2018-07-16] MEDS: ENOXAPARIN 40 MG/0.4 ML SYRINGE SQ SCH (09:07)
[2018-07-16] MEDS: LEVOTHYROXINE 100 MCG VIAL IV SCH (09:07)
[2018-07-16] MEDS: PANTOPRAZOLE 40 MG VIAL IV SCH ×2 (09:07→16:15)
[2018-07-16 10:45] LABS: Basophils # (Auto) 0 K/mcL (0.0-0.3); Basophils % (Auto) 0 % (0.0-2.0); Eosinophils # (Auto) 0 K/mcL (0.0-0.7); Eosinophils % (Auto) 0.1 % (0.0-7.0); Granulocytes % (Auto) 82.6 % (38.0-78.0); Lymphocytes # (Auto) 1.7 K/mcL (1.5-4.8); Lymphocytes % (Auto) 12.4 % (15.5-49.0); Mean Cell Volume 85.5 fL (80.0-100.0); Mean Corpuscular HGB Conc 31.7 g/dL (31.0-36.0); Mean Corpuscular Hemoglobin 27.1 pg (26.0-34.0); Monocytes # (Auto) 0.7 K/mcL (0.1-0.9); Monocytes % (Auto) 4.9 % (1.0-12.0); Platelet Count 402 K/mcL (140-440); Red Cell Distribution Width 16.8 % (11.5-14.5)
[2018-07-16 11:25] LABS: ALT/SGPT 12 U/l (0-40); Albumin 3.6 gm/dL (3.2-5.2); Albumin/Globulin Ratio 1.1 (1.0-2.3); Alkaline Phosphatase 61 U/L (39-117); Bilirubin,Direct < 0.2 mg/dL (0.0-0.3); Blood Urea Nitrogen 21 mg/dl (6-20); Gamma Glutamyl Transpeptidase 33 U/L (5-36); Uric Acid 6.3 mg/dL (2.5-8.0)
[2018-07-16] MEDS: METHYLNALTREXONE BROMIDE 12 MG/0.6 ML VIAL SQ SCH (12:17)
--- NOTE | 2018-07-16 12:59 | General Surgery Progress Note ---
Subjective Patient reports: feels better, pain is less, flatus, bowel movement, afebrile Narrative: Note initiated : 07/16/18 at 12:57 pm Service Date, if different from initiated Date: [] Patient: Dayanna Stephens 57 y/o F admitted on 07/15/18 for Nausea, Abd Swelling/Small Bowel Obstruction. Chief Complaint: [patient states that she feels weak.. She had increased output through her stoma last evening but it has decreased today. Her abdominal exam is unchanged. X-rays showed that contrast is in the colon. She still has high output through her nasogastric tube..] Objective Temp Pulse Resp BP Pulse Ox 99.9 F H 113 H 20 182/104 93 07/16/18 11:41 07/16/18 03:51 07/16/18 11:41 07/16/18 11:52 07/16/18 11:41 - Additional Data Intake & Output - Last 24 hours: Intake & Output 07/14/18 07/15/18 07/16/18 07/17/18 05:59 05:59 05:59 05:59 Intake Total 1050 / 1050 2960 / 2960 1230 / 1230 Output Total 5025 / 5025 1200 / 1200 Balance 1050 / 1050 -2065 / -206 30 30 Weight 254 lb 252 lb - General physical appearance well developed, well nourished, moderate pain - Eyes PERRL, normal ocular movement - ENT normal pinna, normal nares, normal mucosa, no hearing loss, no congestion - Neck no masses, no bruits, trachea midline, no venous distension - Respiratory normal expansion, normal respiratory effort, clear to auscultation - Cardiovascular Cardiovascular exam: Present: normal rate and rhythm, +S1, +S2, tachycardia. Absent: JVD - Abdomen tender (mild tenderness in mid abdomen; hypoactive bowel sounds; stoma digitally examined and it extends into peritoneal cavity without evidence of obstruction distally), bowel sounds (present), surgical scars (none), masses ( none) - Integumentary no rash, no growths, no abnormal pigmentation - Neurologic normal coordination, normal sensation - Musculoskeletal normal gait, normal posture - Psychiatric oriented to time, oriented to person, oriented to place, speech is normal, memory intact - Labs 07/16/18 09:30 07/16/18 09:30 Diabetes panel 07/16/18 Range/Units 09:30 Sodium 144 (133-145) mmol/L Potassium 4.9 (3.3-5.1) mmol/L Chloride 100 (96-108) mmol/L Carbon Dioxide 25 (22-30) mmol/L BUN 21 H (6-20) mg/dl Creatinine 1.2 H (0.6-1.1) mg/dl Glucose 169 H (70-105) mg/dL Calcium 9.1 (8.6-10.4) mg/dl AST 9 (0-37) U/l ALT 12 (0-40) U/l Alkaline Phosphatase 61 (39-117) U/L Total Protein 6.9 (5.9-8.4) gm/dL Albumin 3.6 (3.2-5.2) gm/dL Triglycerides 527 H (<150) mg/dl Calcium panel 07/16/18 Range/Units 09:30 Calcium 9.1 (8.6-10.4) mg/dl Phosphorus 3.3 (2.7-4.5) mg/dL Albumin 3.6 (3.2-5.2) gm/dL Pituitary panel 07/16/18 Range/Units 09:30 Sodium 144 (133-145) mmol/L Potassium 4.9 (3.3-5.1) mmol/L Chloride 100 (96-108) mmol/L Carbon Dioxide 25 (22-30) mmol/L BUN 21 H (6-20) mg/dl Creatinine 1.2 H (0.6-1.1) mg/dl Glucose 169 H (70-105) mg/dL Calcium 9.1 (8.6-10.4) mg/dl Adrenal panel 07/16/18 Range/Units 09:30 Sodium 144 (133-145) mmol/L Potassium 4.9 (3.3-5.1) mmol/L Chloride 100 (96-108) mmol/L Carbon Dioxide 25 (22-30) mmol/L BUN 21 H (6-20) mg/dl Creatinine 1.2 H (0.6-1.1) mg/dl Glucose 169 H (70-105) mg/dL Calcium 9.1 (8.6-10.4) mg/dl Total Bilirubin 0.3 (0.0-1.0) mg/dL AST 9 (0-37) U/l ALT 12 (0-40) U/l Alkaline Phosphatase 61 (39-117) U/L Total Protein 6.9 (5.9-8.4) gm/dL Albumin 3.6 (3.2-5.2) gm/dL Assessment and Plan (1) Chronic intestinal pseudo-obstruction Status: Acute Assessment and plan: Had Relistor 12 mg subcutaneous daily 4 days. Repeat abdominal x-rays in the morning. We'll probably clamp NG tube and give laxatives starting tomorrow. If no progress tomorrow.. She will need to have TPN started Current Visit: No (2) Constipation due to neurogenic bowel Status: Acute Current Visit: No (3) Hypocalcemia Status: Acute Current Visit: No (4) Volume depletion Status: Acute Assessment and plan: Improved with rehydration Current Visit: No (5) Polyglandular autoimmune syndrome Status: Chronic Current Visit: No (6) Chronic use of steroids Problem details: for myasthenia gravis; 10+ years Status: Acute Current Visit: Yes - Time Spent With Patient Total time spent is greater than 50% in coordination of care (as documented) at patient's floor/unit and/or counseling patient:
--- NOTE | 2018-07-16 13:12 | XRay Report ---
CLINICAL INFORMATION: FOLLOW -UP OF SMALL BOWEL OBSTRUCTION COMPARISON: Small bowel follow-through exam - yesterday FINDINGS: NG tube in stable satisfactory position in the gastric body. The stomach and duodenum are decompressed. There are multiple loops of mildly dilated jejunum which have decreased in caliber modestly from yesterday. There is now contrast throughout the distal small bowel and colon from the small bowel follow-through study yesterday. IMPRESSION: Partial small bowel obstruction mid jejunal level - improving. The enteric contrast, administered yesterday, has now migrated into the distal small bowel and colon. Interpreted and Authenticated by: All Lundberg 07/16/18
[2018-07-16] MEDS: PROMETHAZINE 25 MG/ML VIAL IV PRN ×2 (13:53→20:37)
[2018-07-16] MEDS: ACETAMINOPHEN 1,000 MG/100 ML BOTTLE IV PRN (18:06)
[2018-07-17] MEDS: ACETAMINOPHEN 1,000 MG/100 ML BOTTLE IV PRN ×3 (02:11→22:38)
[2018-07-17] MEDS: fentaNYL 100 MCG/2 ML VIAL IV PRN ×5 (03:09→23:36)
[2018-07-17] MEDS: PROMETHAZINE 25 MG/ML VIAL IV PRN ×4 (04:38→22:39)
[2018-07-17] MEDS: 0.9 % SODIUM CHLORIDE 1,000 ML IV SCH ×3 (05:31→21:53)
[2018-07-17] MEDS: PIPERACILLIN SODIUM/TAZOBACTAM 3.375 GM in DEXTROSE 5% IN WATER 50 ML IV SCH ×3 (05:32→21:58)
[2018-07-17 06:11] LABS: ALT/SGPT 13 U/l (0-40); Albumin 3.3 gm/dL (3.2-5.2); Albumin/Globulin Ratio 1.2 (1.0-2.3); Alkaline Phosphatase 61 U/L (39-117); Bilirubin,Direct < 0.2 mg/dL (0.0-0.3); Blood Urea Nitrogen 18 mg/dl (6-20); Gamma Glutamyl Transpeptidase 33 U/L (5-36); Uric Acid 4.3 mg/dL (2.5-8.0)
[2018-07-17 06:12] LABS: Basophils # (Auto) 0 K/mcL (0.0-0.3); Basophils % (Auto) 0.3 % (0.0-2.0); Eosinophils # (Auto) 0.1 K/mcL (0.0-0.7); Eosinophils % (Auto) 1.2 % (0.0-7.0); Granulocytes % (Auto) 87.7 % (38.0-78.0); Lymphocytes # (Auto) 0.8 K/mcL (1.5-4.8); Lymphocytes % (Auto) 8.4 % (15.5-49.0); Mean Cell Volume 82.7 fL (80.0-100.0); Mean Corpuscular HGB Conc 33.9 g/dL (31.0-36.0); Mean Corpuscular Hemoglobin 28.1 pg (26.0-34.0); Monocytes # (Auto) 0.2 K/mcL (0.1-0.9); Monocytes % (Auto) 2.4 % (1.0-12.0); Platelet Count 376 K/mcL (140-440); RBC 4.16 M/mcL (4.00-5.20); Red Cell Distribution Width 15.3 % (11.5-14.5)
[2018-07-17] MEDS: PANTOPRAZOLE 40 MG VIAL IV SCH ×2 (07:39→17:12)
[2018-07-17] MEDS: LEVOTHYROXINE 100 MCG VIAL IV SCH (07:39)
--- NOTE | 2018-07-17 07:42 | XRay Report ---
CLINICAL INFORMATION: FOLLOW -UP OF SMALL BOWEL OBSTRUCTION COMPARISON: None. FINDINGS: NG tube is in stable satisfactory position. Multiple loops of small bowel show slight continued decrease in caliber since previous study. Air-fluid levels noted. Enteric contrast has mostly cleared from the colon with moderate residual in the ascending segment. No free air IMPRESSION: Improving small bowel obstruction Interpreted and Authenticated by: All Lundberg 07/17/18
[2018-07-17] MEDS: METHYLNALTREXONE BROMIDE 12 MG/0.6 ML VIAL SQ SCH (09:46)
[2018-07-17] MEDS: ENOXAPARIN 40 MG/0.4 ML SYRINGE SQ SCH (09:46)
[2018-07-17] MEDS: methylPREDNISolone SOD SUCC 40 MG/ML VIAL IV SCH ×2 (09:49→22:40)
[2018-07-17] MEDS: MAGNESIUM HYDROXIDE 30 ML ORAL.SUSP PO SCH ×4 (10:43→23:38)
[2018-07-17] MEDS: POLYETHYLENE GLYCOL 3350 17 GM PACKET PO SCH ×2 (10:43→15:32)
[2018-07-17] MEDS ORDERED: BENZOCAINE 1 SPRAY BOTTLE TOPICAL PRN (17:44)
--- NOTE | 2018-07-17 18:29 | General Surgery Progress Note ---
Subjective Patient reports: still having pain, flatus, no bowel movement, afebrile Narrative: Note initiated : 07/17/18 at 6:27 pm Service Date, if different from initiated Date: [] Patient: Dayanna Stephens 57 y/o F admitted on 07/15/18 for Nausea, Abd Swelling/Small Bowel Obstruction. Chief Complaint: [Patient has not had significant improvement in her GI output over the past 24 hours. Her abdominal series is not improved, and she still has significant dilation of her small bowel and in spite of the fact that she has more contrast in her colon.] Objective Temp Pulse Resp BP Pulse Ox 97.3 F 81 18 155/91 1 L 07/17/18 16:00 07/17/18 16:00 07/17/18 16:00 07/17/18 16:00 07/17/18 16:00 - Additional Data Intake & Output - Last 24 hours: Intake & Output 07/15/18 07/16/18 07/17/18 07/18/18 05:59 05:59 05:59 05:59 Intake Total 1050 / 1050 2960 / 2960 3890 / 3890 1540 / 1540 Output Total 5025 / 5025 3025 / 3025 Balance 1050 / 1050 -2065 / -2065 865 / 865 1540 / 1540 Weight 254 lb 252 lb 254 lb - Labs 07/17/18 04:35 07/17/18 04:35 Diabetes panel 07/17/18 Range/Units 04:35 Sodium 137 (133-145) mmol/L Potassium 4.9 (3.3-5.1) mmol/L Chloride 100 (96-108) mmol/L Carbon Dioxide 21 L (22-30) mmol/L BUN 18 (6-20) mg/dl Creatinine 0.9 (0.6-1.1) mg/dl Glucose 206 H (70-105) mg/dL Calcium 7.7 L (8.6-10.4) mg/dl AST 15 (0-37) U/l ALT 13 (0-40) U/l Alkaline Phosphatase 61 (39-117) U/L Total Protein 6.1 (5.9-8.4) gm/dL Albumin 3.3 (3.2-5.2) gm/dL Triglycerides 378 H (<150) mg/dl Calcium panel 07/17/18 Range/Units 04:35 Calcium 7.7 L (8.6-10.4) mg/dl Phosphorus 3.0 (2.7-4.5) mg/dL Albumin 3.3 (3.2-5.2) gm/dL Pituitary panel 07/17/18 Range/Units 04:35 Sodium 137 (133-145) mmol/L Potassium 4.9 (3.3-5.1) mmol/L Chloride 100 (96-108) mmol/L Carbon Dioxide 21 L (22-30) mmol/L BUN 18 (6-20) mg/dl Creatinine 0.9 (0.6-1.1) mg/dl Glucose 206 H (70-105) mg/dL Calcium 7.7 L (8.6-10.4) mg/dl Adrenal panel 07/17/18 Range/Units 04:35 Sodium 137 (133-145) mmol/L Potassium 4.9 (3.3-5.1) mmol/L Chloride 100 (96-108) mmol/L Carbon Dioxide 21 L (22-30) mmol/L BUN 18 (6-20) mg/dl Creatinine 0.9 (0.6-1.1) mg/dl Glucose 206 H (70-105) mg/dL Calcium 7.7 L (8.6-10.4) mg/dl Total Bilirubin 0.3 (0.0-1.0) mg/dL AST 15 (0-37) U/l ALT 13 (0-40) U/l Alkaline Phosphatase 61 (39-117) U/L Total Protein 6.1 (5.9-8.4) gm/dL Albumin 3.3 (3.2-5.2) gm/dL Assessment and Plan (1) Chronic intestinal pseudo-obstruction Status: Acute Assessment and plan: Had Relistor 12 mg subcutaneous daily 4 days. Repeat abdominal x-rays in the morning. We'll probably clamp NG tube and give laxatives starting tomorrow. If no progress tomorrow.. She will need to have TPN started Current Visit: No (2) Constipation due to neurogenic bowel Status: Acute Current Visit: No (3) Hypocalcemia Status: Acute Current Visit: No (4) Volume depletion Status: Resolved Assessment and plan: Resolved Current Visit: No (5) Polyglandular autoimmune syndrome Status: Chronic Current Visit: No (6) Chronic use of steroids Problem details: for myasthenia gravis; 10+ years Status: Chronic Current Visit: Yes - Time Spent With Patient Total time spent is greater than 50% in coordination of care (as documented) at patient's floor/unit and/or counseling patient:
--- NOTE | 2018-07-17 18:32 | XRay Report ---
CLINICAL INFORMATION: FOLLOW -UP OF SMALL BOWEL OBSTRUCTION COMPARISON: None. FINDINGS: NG tube in stable satisfactory position. Stomach and multiple loops small bowel remain mildly dilated air-fluid levels. All the enteric contrast is seen in the right and transverse colon. No free air IMPRESSION: Partial small bowel obstruction pattern stable Interpreted and Authenticated by: All Lundberg 07/17/18
[2018-07-17] MEDS ORDERED: MAGNESIUM HYDROXIDE 30 ML ORAL.SUSP ONE (23:34)
[2018-07-18] MEDS: fentaNYL 100 MCG/2 ML VIAL IV PRN ×11 (04:17→21:59)
[2018-07-18] MEDS: PROMETHAZINE 25 MG/ML VIAL IV PRN (05:33)
[2018-07-18] MEDS: 0.9 % SODIUM CHLORIDE 1,000 ML IV SCH ×5 (05:33→21:08)
[2018-07-18] MEDS: PIPERACILLIN SODIUM/TAZOBACTAM 3.375 GM in DEXTROSE 5% IN WATER 50 ML IV SCH ×3 (05:43→21:59)
[2018-07-18 06:03] LABS: Basophils # (Auto) 0 K/mcL (0.0-0.3); Basophils % (Auto) 0.3 % (0.0-2.0); Eosinophils # (Auto) 0 K/mcL (0.0-0.7); Eosinophils % (Auto) 0.1 % (0.0-7.0); Lymphocytes # (Auto) 0.9 K/mcL (1.5-4.8); Lymphocytes % (Auto) 12.2 % (15.5-49.0); Mean Cell Volume 84.5 fL (80.0-100.0); Mean Corpuscular HGB Conc 32.7 g/dL (31.0-36.0); Mean Corpuscular Hemoglobin 27.6 pg (26.0-34.0); Monocytes # (Auto) 0.2 K/mcL (0.1-0.9); Monocytes % (Auto) 3.4 % (1.0-12.0); Platelet Count 375 K/mcL (140-440); RBC 4.02 M/mcL (4.00-5.20)
[2018-07-18] MEDS: PANTOPRAZOLE 40 MG VIAL IV SCH ×2 (07:41→17:44)
[2018-07-18] MEDS: LEVOTHYROXINE 100 MCG VIAL IV SCH (07:42)
[2018-07-18 07:43] LABS: ALT/SGPT 22 U/l (0-40); Albumin 3.4 gm/dL (3.2-5.2); Albumin/Globulin Ratio 1.3 (1.0-2.3); Alkaline Phosphatase 61 U/L (39-117); Bilirubin,Direct < 0.2 mg/dL (0.0-0.3); Blood Urea Nitrogen 15 mg/dl (6-20); Gamma Glutamyl Transpeptidase 41 U/L (5-36); Uric Acid 3.8 mg/dL (2.5-8.0)
--- NOTE | 2018-07-18 08:04 | XRay Report ---
CLINICAL INFORMATION: FOLLOW -UP OF SMALL BOWEL OBSTRUCTION COMPARISON: 07/17/2018 FINDINGS: NG tube in stable position the stomach. The stomach and multiple loops of small bowel of decreased in caliber and are now only mildly dilated. Minimal residual enteric contrast within the colon. IMPRESSION: Improving small bowel obstruction pattern. Interpreted and Authenticated by: All Lundberg 07/18/18
[2018-07-18] MEDS: ENOXAPARIN 40 MG/0.4 ML SYRINGE SQ SCH (08:41)
[2018-07-18] MEDS: METHYLNALTREXONE BROMIDE 12 MG/0.6 ML VIAL SQ SCH (08:41)
[2018-07-18] MEDS: methylPREDNISolone SOD SUCC 40 MG/ML VIAL IV SCH ×2 (08:41→21:02)
[2018-07-18] MEDS: ACETAMINOPHEN 1,000 MG/100 ML BOTTLE IV PRN ×2 (10:06→21:02)
--- NOTE | 2018-07-18 10:49 | General Surgery Progress Note ---
Subjective Patient reports: pain is less, voiding w/o difficulty, flatus, bowel movement, afebrile Narrative: Note initiated : 07/18/18 at 10:46 am Service Date, if different from initiated Date: [] Patient: Dayanna Stephens a 57 y/o F admitted on 07/15/18 for Nausea, Abd Swelling/Small Bowel Obstruction. Chief Complaint: [patient had output of 250 cc of stool last evening but had over 1600 cc of nasogastric output.. Her small bowel remains dilated to a major degree and there is slow movement of contrast through her colon.. Since It has been 5 days with decompression and bowel rest. It is unlikely that she is going to open up enough to feed her and allow her to be discharged. She is therefore counseled for exploratory laparotomy with adhesiolysis and possible total colectomy with ileostomy.] Objective Temp Pulse Resp BP Pulse Ox 98.4 F 94 H 18 140/81 94 07/18/18 07:13 07/18/18 04:00 07/18/18 07:13 07/18/18 07:13 07/18/18 07:13 - Additional Data Intake & Output - Last 24 hours: Intake & Output 07/16/18 07/17/18 07/18/18 07/19/18 05:59 05:59 05:59 05:59 Intake Total 2960 / 2960 3890 / 3890 3740 / 3740 Output Total 5025 / 5025 3025 / 3025 5575 / 5575 500 / 500 Balance -2065 / -2065 865 / 865 -1835 / -1835 -500 / -500 Weight 252 lb 254 lb 249 lb 9.6 oz - General physical appearance well developed, well nourished, no distress - Eyes PERRL, normal ocular movement - ENT normal pinna, normal nares, normal mucosa, no hearing loss, no congestion - Neck no masses, no bruits, trachea midline, no venous distension - Respiratory normal expansion, normal respiratory effort, clear to auscultation - Cardiovascular Cardiovascular exam: Present: normal rate and rhythm, RRR, +S1, +S2. Absent: JVD, tachycardia - Abdomen tender (mild tenderness in the midabdomen with moderate distention), bowel sounds (present), surgical scars (none), masses (none) - Integumentary no rash, no growths, no abnormal pigmentation - Neurologic normal coordination, normal sensation - Musculoskeletal normal gait, normal posture - Psychiatric oriented to time, oriented to person, oriented to place, speech is normal, memory intact - Labs 07/18/18 04:35 07/18/18 04:35 Diabetes panel 07/18/18 Range/Units 04:35 Sodium 140 (133-145) mmol/L Potassium 3.9 (3.3-5.1) mmol/L Chloride 100 (96-108) mmol/L Carbon Dioxide 22 (22-30) mmol/L BUN 15 (6-20) mg/dl Creatinine 0.8 (0.6-1.1) mg/dl Glucose 212 H (70-105) mg/dL Calcium 7.2 L (8.6-10.4) mg/dl AST 24 (0-37) U/l ALT 22 (0-40) U/l Alkaline Phosphatase 61 (39-117) U/L Total Protein 6.1 (5.9-8.4) gm/dL Albumin 3.4 (3.2-5.2) gm/dL Triglycerides 548 H (<150) mg/dl Calcium panel 07/18/18 Range/Units 04:35 Calcium 7.2 L (8.6-10.4) mg/dl Phosphorus 3.5 (2.7-4.5) mg/dL Albumin 3.4 (3.2-5.2) gm/dL Pituitary panel 07/18/18 Range/Units 04:35 Sodium 140 (133-145) mmol/L Potassium 3.9 (3.3-5.1) mmol/L Chloride 100 (96-108) mmol/L Carbon Dioxide 22 (22-30) mmol/L BUN 15 (6-20) mg/dl Creatinine 0.8 (0.6-1.1) mg/dl Glucose 212 H (70-105) mg/dL Calcium 7.2 L (8.6-10.4) mg/dl Adrenal panel 07/18/18 Range/Units 04:35 Sodium 140 (133-145) mmol/L Potassium 3.9 (3.3-5.1) mmol/L Chloride 100 (96-108) mmol/L Carbon Dioxide 22 (22-30) mmol/L BUN 15 (6-20) mg/dl Creatinine 0.8 (0.6-1.1) mg/dl Glucose 212 H (70-105) mg/dL Calcium 7.2 L (8.6-10.4) mg/dl Total Bilirubin 0.3 (0.0-1.0) mg/dL AST 24 (0-37) U/l ALT 22 (0-40) U/l Alkaline Phosphatase 61 (39-117) U/L Total Protein 6.1 (5.9-8.4) gm/dL Albumin 3.4 (3.2-5.2) gm/dL Assessment and Plan (1) Chronic intestinal pseudo-obstruction Status: Acute Assessment and plan: Patient counseled for exploratory laparotomy and possible colectomy with ileostomy. It will be done today. Current Visit: No (2) Constipation due to neurogenic bowel Status: Acute Current Visit: No (3) Hypocalcemia Status: Acute Assessment and plan: Started on IV calcium gluconate replacements Current Visit: No (4) Polyglandular autoimmune syndrome Status: Chronic Current Visit: No (5) Chronic use of steroids Problem details: for myasthenia gravis; 10+ years Status: Chronic Current Visit: Yes - Time Spent With Patient Total time spent is greater than 50% in coordination of care (as documented) at patient's floor/unit and/or counseling patient:
[2018-07-18] MEDS ORDERED: CALCIUM GLUCONATE 9.3 MEQ in DEXTROSE 5% IN WATER 100 ML IV ONE (11:00)
[2018-07-18] MEDS ORDERED: ALBUMIN HUMAN 25 GM/100 ML BAG IV ONE ×3 (12:56→16:54)
[2018-07-18] MEDS ORDERED: SUCCINYLCHOLINE 20 MG/ML ML IV ONE (13:55)
[2018-07-18] MEDS ORDERED: DEXAMETHASONE 10 MG/ML VIAL IV ONE (13:55)
[2018-07-18] MEDS ORDERED: KETAMINE 100 MG/ML ML IV ONE (13:55)
[2018-07-18] MEDS ORDERED: ONDANSETRON 4 MG/2 ML VIAL IV ONE (13:55)
[2018-07-18] MEDS ORDERED: METOPROLOL TARTRATE 5 MG/5 ML VIAL IV ONE (13:55)
[2018-07-18] MEDS ORDERED: fentaNYL 250 MCG/5 ML VIAL IV ONE (13:55)
[2018-07-18] MEDS ORDERED: ROCURONIUM 10 MG/ML ML IV ONE (13:55)
[2018-07-18] MEDS ORDERED: LIDOCAINE HCL/PF 100 MG/5 ML SYRINGE IV ONE (13:55)
[2018-07-18] MEDS ORDERED: MIDAZOLAM 2 MG/2 ML VIAL IV ONE (13:55)
[2018-07-18] MEDS ORDERED: PROPOFOL 200 MG/20 ML VIAL IV ONE (13:55)
[2018-07-18] MEDS ORDERED: LACTATED RINGERS 250 ML IV PRN (14:17)
[2018-07-18] MEDS ORDERED: ONDANSETRON 4 MG/2 ML VIAL IV PRN (14:17)
[2018-07-18] MEDS ORDERED: ACETAMINOPHEN 1,000 MG/100 ML BOTTLE IV ONE (14:17)
[2018-07-18] MEDS ORDERED: IPRATROPIUM/ALBUTEROL 3 ML AMPUL.NEB NEB PRN ×2 (14:17→15:45)
[2018-07-18] MEDS ORDERED: NALOXONE HCL 0.4 MG/ML VIAL IV PRN (14:17)
[2018-07-18] MEDS ORDERED: METHOCARBAMOL 1,000 MG/10 ML VIAL IV PRN (14:17)
[2018-07-18] MEDS ORDERED: BENZOCAINE/MENTHOL 1 LOZENGE PO PRN (14:17)
[2018-07-18] MEDS ORDERED: FLUMAZENIL 0.1 MG/ML ML IV PRN (14:17)
[2018-07-18] MEDS ORDERED: fentaNYL 100 MCG/2 ML VIAL IV ONE (14:29)
[2018-07-18] MEDS ORDERED: LACTATED RINGERS 1,000 ML IV SCH (14:30)
--- NOTE | 2018-07-18 15:02 | Brief Operative Note ---
Date of procedure: 07/18/18 Pre-op diagnosis: small bowel obstruction Post-op diagnosis: other (smallbowel obstruction) Procedure: exploratory laparotomy with adhesiolysis Grafts/Implants: No Anesthesia: GETA Findings: major dilation of small bowel and colon 3 areas of partial obstruction of distal small bowel with partially decompressed terminal ileum Complications: none Surgeon: Bertha Currie Estimated blood loss (cc): 25 Specimens Removed/Pathology: none sent Condition: stable Disposition: PACU
[2018-07-18] MEDS: HYDROmorphone 2 MG/ML VIAL IV PRN ×2 (15:45→15:50)
[2018-07-18] MEDS ORDERED: HYDROmorphone 2 MG/ML VIAL ONE (15:52)
--- NOTE | 2018-07-18 15:54 | XRay Report ---
CLINICAL INFORMATION: verification of IJ placement COMPARISON: 07/06/2018 FINDINGS: The right IJ line tip overlies the SVC last right atrial junction. Pre-existing left subclavian Port-A-Cath also the NG tube remain in stable, satisfactory position. Heart is minimally enlarged, but unchanged. Sternotomy noted. Mediastinum and pulmonary vessels are unremarkable. There is minor bibasilar atelectasis. No pneumothorax or other complication from line placement IMPRESSION: Right IJ line tip overlies the SVC right atrial junction. No pneumothorax or other complication from line placement. Interpreted and Authenticated by: All Lundberg 07/18/18
[2018-07-18] MEDS ORDERED: BENZOCAINE 1 SPRAY BOTTLE TOPICAL PRN (16:54)
[2018-07-18] MEDS ORDERED: ACETAMINOPHEN 1,000 MG/100 ML BOTTLE IV PRN (16:54)
[2018-07-18] MEDS ORDERED: 0.9 % SODIUM CHLORIDE 10 ML SYRINGE IV PRN (16:54)
[2018-07-18] MEDS ORDERED: KETOROLAC 30 MG/ML VIAL IV ONE (17:28)
[2018-07-18] MEDS ORDERED: KETOROLAC 30 MG/ML VIAL ONE (17:41)
[2018-07-19] MEDS: fentaNYL 100 MCG/2 ML VIAL IV PRN ×8 (00:54→21:29)
[2018-07-19] MEDS: 0.9 % SODIUM CHLORIDE 1,000 ML IV SCH ×5 (05:40→21:28)
[2018-07-19] MEDS: ACETAMINOPHEN 1,000 MG/100 ML BOTTLE IV PRN ×3 (05:41→22:53)
[2018-07-19] MEDS: PIPERACILLIN SODIUM/TAZOBACTAM 3.375 GM in DEXTROSE 5% IN WATER 50 ML IV SCH ×3 (06:21→21:30)
[2018-07-19] MEDS: LEVOTHYROXINE 100 MCG VIAL IV SCH (07:18)
[2018-07-19] MEDS: PANTOPRAZOLE 40 MG VIAL IV SCH ×2 (07:19→17:30)
[2018-07-19] MEDS ORDERED: KETOROLAC 30 MG/ML VIAL IV ONE (08:29)
[2018-07-19] MEDS ORDERED: CALCIUM GLUCONATE 4.65 MEQ/10 ML VIAL IV SCH (09:00)
[2018-07-19] MEDS ORDERED: METHYLNALTREXONE BROMIDE 12 MG/0.6 ML VIAL SQ SCH (09:00)
[2018-07-19] MEDS ORDERED: CALCIUM GLUCONATE 9.3 MEQ in DEXTROSE 5% IN WATER 100 ML IV SCH (09:00)
[2018-07-19] MEDS: methylPREDNISolone SOD SUCC 40 MG/ML VIAL IV SCH ×2 (09:57→21:30)
[2018-07-19] MEDS: CALCIUM GLUCONATE 9.3 MEQ in DEXTROSE 5% IN WATER 100 ML IV SCH (10:05)
--- NOTE | 2018-07-19 11:03 | General Surgery Progress Note ---
Subjective Patient reports: still having pain, pain is less, flatus, bowel movement, diarrhea, afebrile Narrative: Note initiated : 07/19/18 at 11:01 am Service Date, if different from initiated Date: [] Patient: Dayanna Stephens 57 y/o F admitted on 07/15/18 for Laparotomy Exploration General with Adhesisolysis . Chief Complaint: [ patient is doing well. She is bright and alert.. She complains of incisional pain. She denies nausea.she has liquid output and gas through her stoma.] Objective Temp Pulse Resp BP Pulse Ox 98.2 F 79 20 162/90 98 07/19/18 07:03 07/19/18 04:00 07/19/18 07:03 07/19/18 07:03 07/19/18 07:03 - Additional Data Intake & Output - Last 24 hours: Intake & Output 07/17/18 07/18/18 07/19/18 07/20/18 05:59 05:59 05:59 05:59 Intake Total 3890 / 3890 3740 / 3740 4220 / 4220 100 / 100 Output Total 3025 / 3025 5575 / 5575 2950 / 2950 Balance 865 / 865 -1835 / -1835 1270 / 1270 100 / 100 Weight 254 lb 249 lb 9.6 oz 257 lb - General physical appearance moderate distress, moderate pain, chronically ill, obese - Eyes PERRL, normal ocular movement - ENT normal pinna, normal nares, normal mucosa, no hearing loss, no congestion - Neck no masses, no bruits, trachea midline, no lymphadectomy, no venous distension - Respiratory normal expansion, normal respiratory effort, clear to auscultation - Cardiovascular Cardiovascular exam: Present: normal rate and rhythm, RRR, +S1, +S2. Absent: JVD, tachycardia - Abdomen tender (moderate incisional tenderness; FEW active bowel sounds; incision looks good;;;;;;;;;;;;;;;;;;;;;;;;;;;;;;;;;;;;;;;;;;;; stoma is functioning) - Integumentary no rash, no growths, no abnormal pigmentation - Neurologic normal coordination, normal sensation - Musculoskeletal normal gait, normal posture - Psychiatric oriented to time, oriented to person, oriented to place, speech is normal, memory intact - Labs 07/18/18 04:35 07/18/18 04:35 Assessment and Plan (1) Chronic intestinal pseudo-obstruction Status: Acute Assessment and plan: Stable. Postoperative day #1 Current Visit: No (2) Constipation due to neurogenic bowel Status: Acute Assessment and plan: Continue nasogastric suction Current Visit: No (3) Hypocalcemia Status: Acute Assessment and plan: Started on IV calcium gluconate replacements Current Visit: No (4) Polyglandular autoimmune syndrome Status: Chronic Current Visit: No (5) Chronic use of steroids Problem details: for myasthenia gravis; 10+ years Status: Chronic Current Visit: Yes - Time Spent With Patient Total time spent is greater than 50% in coordination of care (as documented) at patient's floor/unit and/or counseling patient:
[2018-07-19] MEDS ORDERED: DEXTROSE 31 GM ORAL.SUSP PO PRN (11:34)
[2018-07-19] MEDS ORDERED: DEXTROSE 50% 50 ML VIAL IV PRN (11:34)
[2018-07-19] MEDS ORDERED: [UNRECOGNIZED DRUG - OTHER] IV SCH (12:00)
[2018-07-19] MEDS ORDERED: TPN PER PHARMACY IV SCH ×2 (12:00)
[2018-07-19] MEDS ORDERED: CALCIUM GLUCONATE IV SCH (12:00)
[2018-07-19] MEDS ORDERED: SODIUM CHLORIDE IV SCH (12:00)
[2018-07-19] MEDS ORDERED: MAGNESIUM SULFATE IV SCH (12:00)
[2018-07-19] MEDS: INSULIN LISPRO 1 UNIT/0.01 ML UNIT SQ SCH ×2 (12:19→17:42)
[2018-07-19] MEDS: FAT EMULSION 20% 250 ML IV SCH (16:00)
[2018-07-20] MEDS: INSULIN LISPRO 1 UNIT/0.01 ML UNIT SQ SCH ×4 (00:31→17:44)
[2018-07-20] MEDS: 0.9 % SODIUM CHLORIDE 1,000 ML IV SCH ×5 (02:06→22:04)
[2018-07-20] MEDS: fentaNYL 100 MCG/2 ML VIAL IV PRN ×7 (02:09→22:03)
[2018-07-20] MEDS: PIPERACILLIN SODIUM/TAZOBACTAM 3.375 GM in DEXTROSE 5% IN WATER 50 ML IV SCH ×3 (05:24→22:07)
[2018-07-20] MEDS: ACETAMINOPHEN 1,000 MG/100 ML BOTTLE IV PRN ×3 (05:53→17:50)
[2018-07-20 06:38] LABS: Basophils # (Auto) 0 K/mcL (0.0-0.3); Basophils % (Auto) 0.1 % (0.0-2.0); Eosinophils # (Auto) 0 K/mcL (0.0-0.7); Eosinophils % (Auto) 0 % (0.0-7.0); Granulocytes % (Auto) 76.8 % (38.0-78.0); Lymphocytes # (Auto) 0.8 K/mcL (1.5-4.8); Mean Cell Volume 85.3 fL (80.0-100.0); Mean Corpuscular HGB Conc 31.8 g/dL (31.0-36.0); Mean Corpuscular Hemoglobin 27.1 pg (26.0-34.0); Monocytes # (Auto) 0.3 K/mcL (0.1-0.9); Monocytes % (Auto) 7.1 % (1.0-12.0); Platelet Count 245 K/mcL (140-440); RBC 3.26 M/mcL (4.00-5.20); Red Cell Distribution Width 15.9 % (11.5-14.5)
[2018-07-20 07:18] LABS: ALT/SGPT 19 U/l (0-40); Albumin 2.9 gm/dL (3.2-5.2); Albumin/Globulin Ratio 1.5 (1.0-2.3); Alkaline Phosphatase 43 U/L (39-117); Bilirubin,Direct < 0.2 mg/dL (0.0-0.3); Blood Urea Nitrogen 10 mg/dl (6-20); Gamma Glutamyl Transpeptidase 29 U/L (5-36); Uric Acid 2.8 mg/dL (2.5-8.0)
[2018-07-20] MEDS: PANTOPRAZOLE 40 MG VIAL IV SCH ×2 (08:03→16:53)
[2018-07-20] MEDS: LEVOTHYROXINE 100 MCG VIAL IV SCH (08:03)
[2018-07-20] MEDS: methylPREDNISolone SOD SUCC 40 MG/ML VIAL IV SCH ×2 (09:23→22:02)
[2018-07-20] MEDS: CALCIUM GLUCONATE 9.3 MEQ in DEXTROSE 5% IN WATER 100 ML IV SCH (09:24)
[2018-07-20] MEDS ORDERED: [UNRECOGNIZED DRUG - OTHER] IV SCH (12:00)
[2018-07-20] MEDS ORDERED: MAGNESIUM SULFATE IV SCH ×2 (12:00)
[2018-07-20] MEDS ORDERED: CALCIUM GLUCONATE IV SCH ×2 (12:00)
[2018-07-20] MEDS ORDERED: [UNRECOGNIZED DRUG - OTHER] IV SCH (12:00)
[2018-07-20] MEDS ORDERED: SODIUM CHLORIDE IV SCH (12:00)
[2018-07-20] MEDS ORDERED: POTASSIUM PHOSPHATE IV SCH (12:00)
--- NOTE | 2018-07-20 13:12 | General Surgery Progress Note ---
Subjective Patient reports: feels better, pain is less, flatus, bowel movement, diarrhea, afebrile Narrative: Note initiated : 07/20/18 at 1:11 pm Service Date, if different from initiated Date: [] Patient: Dayanna Stephens 57 y/o F admitted on 07/15/18 for Laparotomy Exploration General with Adhesisolysis . Chief Complaint: [Patient is doing well. She is much more alert and conversational. She denies chest pain or shortness of breath. Her abdominal pain is significantly improved. She has moderate amount of liquid stool through her stoma.] Objective Temp Pulse Resp BP Pulse Ox 99.1 F H 67 16 162/80 96 07/20/18 12:42 07/20/18 12:42 07/20/18 12:42 07/20/18 12:42 07/20/18 12:42 - Additional Data Intake & Output - Last 24 hours: Intake & Output 07/18/18 07/19/18 07/20/18 07/21/18 05:59 05:59 05:59 05:59 Intake Total 3740 / 3740 4220 / 4220 2820 / 2820 1881 / 1881 Output Total 5575 / 5575 2950 / 2950 3150 / 3150 750 / 750 Balance -1835 / -1835 1270 / 1270 -330 / -330 1131 / 1131 Weight 249 lb 9.6 oz 257 lb 255 lb - General physical appearance no distress, moderate pain, obese - Eyes PERRL, normal ocular movement - ENT normal pinna, normal nares, normal mucosa, no hearing loss, no congestion - Neck no masses, no bruits, trachea midline, no lymphadectomy, no venous distension - Respiratory normal expansion, normal respiratory effort, clear to auscultation - Cardiovascular Cardiovascular exam: Present: normal rate and rhythm, RRR, +S1, +S2. Absent: JVD, tachycardia - Abdomen tender (Minimal tenderness along incision; stoma is healthy and is functioning) , bowel sounds (present), surgical scars (none), masses (none) - Integumentary no rash, no growths, no abnormal pigmentation - Neurologic normal coordination, normal sensation - Musculoskeletal normal gait, normal posture - Psychiatric oriented to time, oriented to person, oriented to place, speech is normal, memory intact - Labs 07/20/18 05:40 07/20/18 05:40 Diabetes panel 07/20/18 Range/Units 05:40 Sodium 145 (133-145) mmol/L Potassium 3.9 (3.3-5.1) mmol/L Chloride 109 H (96-108) mmol/L Carbon Dioxide 25 (22-30) mmol/L BUN 10 (6-20) mg/dl Creatinine 0.7 (0.6-1.1) mg/dl Glucose 175 H (70-105) mg/dL Calcium 6.4 L (8.6-10.4) mg/dl AST 11 (0-37) U/l ALT 19 (0-40) U/l Alkaline Phosphatase 43 (39-117) U/L Total Protein 4.9 L (5.9-8.4) gm/dL Albumin 2.9 L (3.2-5.2) gm/dL Triglycerides 354 H (<150) mg/dl Calcium panel 07/20/18 Range/Units 05:40 Calcium 6.4 L (8.6-10.4) mg/dl Phosphorus 3.1 (2.7-4.5) mg/dL Albumin 2.9 L (3.2-5.2) gm/dL Pituitary panel 07/20/18 Range/Units 05:40 Sodium 145 (133-145) mmol/L Potassium 3.9 (3.3-5.1) mmol/L Chloride 109 H (96-108) mmol/L Carbon Dioxide 25 (22-30) mmol/L BUN 10 (6-20) mg/dl Creatinine 0.7 (0.6-1.1) mg/dl Glucose 175 H (70-105) mg/dL Calcium 6.4 L (8.6-10.4) mg/dl Adrenal panel 07/20/18 Range/Units 05:40 Sodium 145 (133-145) mmol/L Potassium 3.9 (3.3-5.1) mmol/L Chloride 109 H (96-108) mmol/L Carbon Dioxide 25 (22-30) mmol/L BUN 10 (6-20) mg/dl Creatinine 0.7 (0.6-1.1) mg/dl Glucose 175 H (70-105) mg/dL Calcium 6.4 L (8.6-10.4) mg/dl Total Bilirubin 0.2 (0.0-1.0) mg/dL AST 11 (0-37) U/l ALT 19 (0-40) U/l Alkaline Phosphatase 43 (39-117) U/L Total Protein 4.9 L (5.9-8.4) gm/dL Albumin 2.9 L (3.2-5.2) gm/dL Assessment and Plan (1) Chronic intestinal pseudo-obstruction Status: Acute Assessment and plan: Stable. will check abdominal series today Current Visit: No (2) Constipation due to neurogenic bowel Status: Resolved Assessment and plan: Continue nasogastric suction Current Visit: No (3) Hypocalcemia Status: Acute Assessment and plan: Started on IV calcium gluconate replacements Current Visit: No (4) Polyglandular autoimmune syndrome Status: Chronic Current Visit: No (5) Chronic use of steroids Problem details: for myasthenia gravis; 10+ years Status: Chronic Current Visit: Yes - Time Spent With Patient Total time spent is greater than 50% in coordination of care (as documented) at patient's floor/unit and/or counseling patient:
--- NOTE | 2018-07-20 14:05 | XRay Report ---
CLINICAL INFORMATION: FOLLOW -UP OF SMALL BOWEL OBSTRUCTION COMPARISON: 07/18/2018 FINDINGS: NG tube remains in stable satisfactory position in the gastric body. Scattered air-fluid levels within nondilated small bowel noted. Small amount of contrast remaining in the normal caliber colon. IMPRESSION: Complete resolution of small bowel obstruction pattern Interpreted and Authenticated by: All Lundberg 07/20/18
[2018-07-21] MEDS: fentaNYL 100 MCG/2 ML VIAL IV PRN ×7 (01:57→20:58)
[2018-07-21] MEDS: INSULIN LISPRO 1 UNIT/0.01 ML UNIT SQ SCH ×4 (02:01→18:23)
[2018-07-21] MEDS: ACETAMINOPHEN 1,000 MG/100 ML BOTTLE IV PRN ×3 (04:01→20:17)
[2018-07-21] MEDS: 0.9 % SODIUM CHLORIDE 1,000 ML IV SCH ×3 (04:01→18:47)
[2018-07-21 05:29] LABS: Basophils # (Auto) 0 K/mcL (0.0-0.3); Basophils % (Auto) 0.1 % (0.0-2.0); Eosinophils # (Auto) 0.1 K/mcL (0.0-0.7); Eosinophils % (Auto) 1.9 % (0.0-7.0); Granulocytes % (Auto) 79.6 % (38.0-78.0); Lymphocytes # (Auto) 0.6 K/mcL (1.5-4.8); Lymphocytes % (Auto) 13.8 % (15.5-49.0); Mean Cell Volume 85.2 fL (80.0-100.0); Mean Corpuscular HGB Conc 32.5 g/dL (31.0-36.0); Mean Corpuscular Hemoglobin 27.7 pg (26.0-34.0); Monocytes # (Auto) 0.2 K/mcL (0.1-0.9); Monocytes % (Auto) 4.6 % (1.0-12.0); Platelet Count 234 K/mcL (140-440); RBC 3.24 M/mcL (4.00-5.20); Red Cell Distribution Width 15.9 % (11.5-14.5)
[2018-07-21] MEDS: PIPERACILLIN SODIUM/TAZOBACTAM 3.375 GM in DEXTROSE 5% IN WATER 50 ML IV SCH ×3 (05:33→23:11)
[2018-07-21 05:56] LABS: ALT/SGPT 19 U/l (0-40); Albumin 3.1 gm/dL (3.2-5.2); Albumin/Globulin Ratio 1.5 (1.0-2.3); Alkaline Phosphatase 45 U/L (39-117); Bilirubin,Direct < 0.2 mg/dL (0.0-0.3); Blood Urea Nitrogen 9 mg/dl (6-20); Gamma Glutamyl Transpeptidase 32 U/L (5-36); Uric Acid 2.3 mg/dL (2.5-8.0)
[2018-07-21] MEDS: PANTOPRAZOLE 40 MG VIAL IV SCH ×2 (07:01→18:09)
[2018-07-21] MEDS: LEVOTHYROXINE 100 MCG VIAL IV SCH (07:02)
[2018-07-21] MEDS: methylPREDNISolone SOD SUCC 40 MG/ML VIAL IV SCH ×2 (08:54→20:18)
[2018-07-21] MEDS: CALCIUM GLUCONATE 9.3 MEQ in DEXTROSE 5% IN WATER 100 ML IV SCH (08:54)
[2018-07-21] MEDS ORDERED: CALCIUM GLUCONATE IV SCH (12:00)
[2018-07-21] MEDS ORDERED: MAGNESIUM SULFATE IV SCH (12:00)
[2018-07-21] MEDS ORDERED: [UNRECOGNIZED DRUG - OTHER] IV SCH (12:00)
[2018-07-21] MEDS ORDERED: POTASSIUM PHOSPHATE IV SCH (12:00)
--- NOTE | 2018-07-21 14:03 | XRay Report ---
CLINICAL INFORMATION: FOLLOW -UP OF SMALL BOWEL OBSTRUCTION COMPARISON: 07/20/2018 FINDINGS: NG tube has been removed. Stomach and small bowel of returned to normal. Small amount of residual enteric contrast in the colon persists, but the colon is normal caliber. No free air, soft tissue mass or pathologic calcification IMPRESSION: Normal - interval resolution small bowel obstruction pattern. NG tube now out Interpreted and Authenticated by: All Lundberg 07/21/18
--- NOTE | 2018-07-21 15:17 | General Surgery Progress Note ---
Subjective Patient reports: feels better, pain is less, tolerating liquids well, flatus, bowel movement, afebrile Narrative: Note initiated : 07/21/18 at 3:16 pm Service Date, if different from initiated Date: [] Patient: Dayanna Stephens 57 y/o F admitted on 07/15/18 for Laparotomy Exploration General with Adhesisolysis . Chief Complaint: [Patient continues to improve. She had good output of flatus during the night and had 2 small bowel movements. She denies chest pain or shortness of breath. Her abdominal pain is significantly improved. She appears to be in much better spirits today. Abdominal series reveals decrease in size of small bowel and colon. There is significant clearing of gas and contrast from the small bowel. Her labs are essentially normal] Objective Temp Pulse Resp BP Pulse Ox 97.8 F 72 16 160/82 97 07/21/18 12:10 07/21/18 12:10 07/21/18 12:10 07/21/18 12:10 07/21/18 12:10 - Additional Data Intake & Output - Last 24 hours: Intake & Output 07/19/18 07/20/18 07/21/18 07/22/18 05:59 05:59 05:59 05:59 Intake Total 4220 / 4220 2820 / 2820 4384 / 4384 2009 Output Total 2950 / 2950 3150 / 3150 3950 / 3950 1400 / 1400 Balance 1270 / 1270 -330 / -330 434 / 434 610 / 610 Weight 257 lb 255 lb 255 lb 8 oz - General physical appearance well developed, well nourished, no distress - Eyes PERRL, normal ocular movement - ENT normal pinna, normal nares, normal mucosa, no hearing loss, no congestion - Neck no masses, no bruits, trachea midline, no lymphadectomy, no venous distension - Respiratory normal expansion, normal respiratory effort, clear to percussion, clear to auscultation - Cardiovascular Cardiovascular exam: Present: normal rate and rhythm, RRR, +S1, +S2. Absent: JVD, tachycardia - Abdomen tender (Minimal tenderness around incision; stoma is functioning appropriately) , bowel sounds (present), surgical scars (none), masses (none) - Integumentary no rash, no growths, no abnormal pigmentation - Neurologic normal coordination, normal sensation - Musculoskeletal normal gait, normal posture - Psychiatric oriented to time, oriented to person, oriented to place, speech is normal, memory intact - Labs 07/21/18 04:00 07/21/18 04:00 Diabetes panel 07/21/18 Range/Units 04:00 Sodium 143 (133-145) mmol/L Potassium 3.5 (3.3-5.1) mmol/L Chloride 106 (96-108) mmol/L Carbon Dioxide 25 (22-30) mmol/L BUN 9 (6-20) mg/dl Creatinine 0.7 (0.6-1.1) mg/dl Glucose 202 H (70-105) mg/dL Calcium 6.8 L (8.6-10.4) mg/dl AST 10 (0-37) U/l ALT 19 (0-40) U/l Alkaline Phosphatase 45 (39-117) U/L Total Protein 5.2 L (5.9-8.4) gm/dL Albumin 3.1 L (3.2-5.2) gm/dL Triglycerides 442 H (<150) mg/dl Calcium panel 07/21/18 Range/Units 04:00 Calcium 6.8 L (8.6-10.4) mg/dl Phosphorus 3.3 (2.7-4.5) mg/dL Albumin 3.1 L (3.2-5.2) gm/dL Pituitary panel 07/21/18 Range/Units 04:00 Sodium 143 (133-145) mmol/L Potassium 3.5 (3.3-5.1) mmol/L Chloride 106 (96-108) mmol/L Carbon Dioxide 25 (22-30) mmol/L BUN 9 (6-20) mg/dl Creatinine 0.7 (0.6-1.1) mg/dl Glucose 202 H (70-105) mg/dL Calcium 6.8 L (8.6-10.4) mg/dl Adrenal panel 07/21/18 Range/Units 04:00 Sodium 143 (133-145) mmol/L Potassium 3.5 (3.3-5.1) mmol/L Chloride 106 (96-108) mmol/L Carbon Dioxide 25 (22-30) mmol/L BUN 9 (6-20) mg/dl Creatinine 0.7 (0.6-1.1) mg/dl Glucose 202 H (70-105) mg/dL Calcium 6.8 L (8.6-10.4) mg/dl Total Bilirubin 0.2 (0.0-1.0) mg/dL AST 10 (0-37) U/l ALT 19 (0-40) U/l Alkaline Phosphatase 45 (39-117) U/L Total Protein 5.2 L (5.9-8.4) gm/dL Albumin 3.1 L (3.2-5.2) gm/dL Assessment and Plan (1) Chronic intestinal pseudo-obstruction Status: Acute Assessment and plan: Stable. will check abdominal series in a.m. Start on clear liquids Current Visit: No (2) Hypocalcemia Status: Acute Assessment and plan: Started on IV calcium gluconate replacements Current Visit: No (3) Polyglandular autoimmune syndrome Status: Chronic Current Visit: No (4) Chronic use of steroids Problem details: for myasthenia gravis; 10+ years Status: Chronic Current Visit: Yes - Time Spent With Patient Total time spent is greater than 50% in coordination of care (as documented) at patient's floor/unit and/or counseling patient:
[2018-07-22] MEDS: 0.9 % SODIUM CHLORIDE 1,000 ML IV SCH ×5 (00:20→22:12)
[2018-07-22] MEDS: fentaNYL 100 MCG/2 ML VIAL IV PRN ×8 (00:21→23:27)
[2018-07-22] MEDS: LORazepam 2 MG/ML VIAL IV PRN (00:21)
[2018-07-22] MEDS: INSULIN LISPRO 1 UNIT/0.01 ML UNIT SQ SCH ×3 (00:35→12:19)
[2018-07-22] MEDS: ACETAMINOPHEN 1,000 MG/100 ML BOTTLE IV PRN ×3 (03:13→19:56)
[2018-07-22] MEDS: PIPERACILLIN SODIUM/TAZOBACTAM 3.375 GM in DEXTROSE 5% IN WATER 50 ML IV SCH ×3 (05:42→22:10)
[2018-07-22] MEDS: methylPREDNISolone SOD SUCC 40 MG/ML VIAL IV SCH (08:32)
[2018-07-22] MEDS: LEVOTHYROXINE 100 MCG VIAL IV SCH (08:32)
[2018-07-22] MEDS: PANTOPRAZOLE 40 MG VIAL IV SCH ×2 (08:32→16:15)
[2018-07-22 09:36] LABS: ALT/SGPT 25 U/l (0-40); Albumin 3.2 gm/dL (3.2-5.2); Albumin/Globulin Ratio 1.6 (1.0-2.3); Alkaline Phosphatase 55 U/L (39-117); Bilirubin,Direct < 0.2 mg/dL (0.0-0.3); Blood Urea Nitrogen 10 mg/dl (6-20); Gamma Glutamyl Transpeptidase 42 U/L (5-36); Uric Acid 1.8 mg/dL (2.5-8.0)
[2018-07-22] MEDS: CALCIUM GLUCONATE 9.3 MEQ in DEXTROSE 5% IN WATER 100 ML IV SCH (09:47)
[2018-07-22] MEDS ORDERED: POTASSIUM PHOSPHATE IV SCH (12:00)
[2018-07-22] MEDS ORDERED: MAGNESIUM SULFATE IV SCH (12:00)
[2018-07-22] MEDS ORDERED: [UNRECOGNIZED DRUG - OTHER] IV SCH (12:00)
[2018-07-22] MEDS ORDERED: CALCIUM GLUCONATE IV SCH (12:00)
--- NOTE | 2018-07-22 13:07 | General Surgery Progress Note ---
Subjective Patient reports: feels better, pain is less, tolerating liquids well, flatus, bowel movement, afebrile Narrative: Note initiated : 07/22/18 at 1:05 pm Service Date, if different from initiated Date: [] Patient: Dayanna Stephens 57 y/o F admitted on 07/15/18 for Laparotomy Exploration General with Adhesisolysis . Chief Complaint: [Patient feels much better. She has more output through her stoma. Her abdominal distention is significantly less. She denies nausea. Her incision is improved from yesterday. There is no drainage.] Objective Temp Pulse Resp BP Pulse Ox 98.3 F 69 14 152/83 97 07/22/18 12:00 07/22/18 12:00 07/22/18 12:00 07/22/18 12:00 07/22/18 12:00 - Additional Data Intake & Output - Last 24 hours: Intake & Output 07/20/18 07/21/18 07/22/18 07/23/18 05:59 05:59 05:59 05:59 Intake Total 2820 / 2820 4384 / 4384 4010 / 4010 1270 / 1270 Output Total 3150 / 3150 3950 / 3950 7050 / 7050 3800 / 3800 Balance -330 / -330 434 / 434 -3040 / -3040 -2530 / -2530 Weight 255 lb 255 lb 8 oz 256 lb 256 lb - General physical appearance well developed, well nourished, no distress - Eyes PERRL, normal ocular movement - ENT normal pinna, normal nares, normal mucosa, no hearing loss, no congestion - Neck no masses, no bruits, trachea midline, no lymphadectomy, no venous distension - Respiratory normal expansion, normal respiratory effort, clear to auscultation - Cardiovascular Cardiovascular exam: Present: normal rate and rhythm, RRR, +S1, +S2. Absent: JVD, tachycardia - Abdomen tender (Mild tenderness around incision otherwise benign abdomen), bowel sounds (present), surgical scars (none), masses (none) - Integumentary no rash, no growths, no abnormal pigmentation - Neurologic normal coordination, normal sensation - Musculoskeletal normal gait, normal posture - Psychiatric oriented to time - Labs 07/21/18 04:00 07/22/18 08:30 Diabetes panel 07/22/18 Range/Units 08:30 Sodium 142 (133-145) mmol/L Potassium 3.6 (3.3-5.1) mmol/L Chloride 105 (96-108) mmol/L Carbon Dioxide 26 (22-30) mmol/L BUN 10 (6-20) mg/dl Creatinine 0.6 (0.6-1.1) mg/dl Glucose 145 H (70-105) mg/dL Calcium 7.1 L (8.6-10.4) mg/dl AST 9 (0-37) U/l ALT 25 (0-40) U/l Alkaline Phosphatase 55 (39-117) U/L Total Protein 5.2 L (5.9-8.4) gm/dL Albumin 3.2 (3.2-5.2) gm/dL Triglycerides 497 H (<150) mg/dl Calcium panel 07/22/18 Range/Units 08:30 Calcium 7.1 L (8.6-10.4) mg/dl Phosphorus 3.7 (2.7-4.5) mg/dL Albumin 3.2 (3.2-5.2) gm/dL Pituitary panel 07/22/18 Range/Units 08:30 Sodium 142 (133-145) mmol/L Potassium 3.6 (3.3-5.1) mmol/L Chloride 105 (96-108) mmol/L Carbon Dioxide 26 (22-30) mmol/L BUN 10 (6-20) mg/dl Creatinine 0.6 (0.6-1.1) mg/dl Glucose 145 H (70-105) mg/dL Calcium 7.1 L (8.6-10.4) mg/dl Adrenal panel 07/22/18 Range/Units 08:30 Sodium 142 (133-145) mmol/L Potassium 3.6 (3.3-5.1) mmol/L Chloride 105 (96-108) mmol/L Carbon Dioxide 26 (22-30) mmol/L BUN 10 (6-20) mg/dl Creatinine 0.6 (0.6-1.1) mg/dl Glucose 145 H (70-105) mg/dL Calcium 7.1 L (8.6-10.4) mg/dl Total Bilirubin 0.2 (0.0-1.0) mg/dL AST 9 (0-37) U/l ALT 25 (0-40) U/l Alkaline Phosphatase 55 (39-117) U/L Total Protein 5.2 L (5.9-8.4) gm/dL Albumin 3.2 (3.2-5.2) gm/dL Assessment and Plan (1) Chronic intestinal pseudo-obstruction Status: Acute Assessment and plan: Stable. Advanced to full liquids with Ensure Check abdominal x-rays in the morning Current Visit: No (2) Hypocalcemia Status: Acute Assessment and plan: Will switch to oral calcium Current Visit: No (3) Polyglandular autoimmune syndrome Status: Chronic Current Visit: No (4) Chronic use of steroids Problem details: for myasthenia gravis; 10+ years Status: Chronic Assessment and plan: Switch to oral prednisone Current Visit: Yes - Time Spent With Patient Total time spent is greater than 50% in coordination of care (as documented) at patient's floor/unit and/or counseling patient:
[2018-07-22] MEDS: MAGNESIUM OXIDE 400 MG TABLET PO SCH ×2 (15:07→20:09)
[2018-07-22] MEDS: CALCITRIOL 0.25 MCG CAPSULE PO SCH ×2 (15:07→20:09)
[2018-07-22] MEDS: FAT EMULSION 20% 250 ML IV SCH (16:24)
[2018-07-22] MEDS: CALCIUM CARBONATE 500 MG TAB.CHEW CHEWED SCH (20:09)
[2018-07-22] MEDS: DULoxetine 30 MG CAPSULE PO SCH (20:09)
[2018-07-22] MEDS ORDERED: diphenhydrAMINE 50 MG/ML VIAL IV ONE (23:08)
[2018-07-22] MEDS ORDERED: diphenhydrAMINE 50 MG/ML VIAL IV PRN (23:10)
[2018-07-22] MEDS ORDERED: diphenhydrAMINE 50 MG/ML VIAL ONE (23:24)
[2018-07-23] MEDS: 0.9 % SODIUM CHLORIDE 1,000 ML IV SCH ×4 (02:10→22:59)
[2018-07-23] MEDS: fentaNYL 100 MCG/2 ML VIAL IV PRN ×7 (02:10→21:12)
[2018-07-23] MEDS: ACETAMINOPHEN 1,000 MG/100 ML BOTTLE IV PRN ×3 (02:12→19:30)
[2018-07-23] MEDS: PIPERACILLIN SODIUM/TAZOBACTAM 3.375 GM in DEXTROSE 5% IN WATER 50 ML IV SCH ×3 (05:17→21:16)
[2018-07-23 06:41] LABS: ALT/SGPT 18 U/l (0-40); Albumin/Globulin Ratio 1.6 (1.0-2.3); Alkaline Phosphatase 50 U/L (39-117); Bilirubin,Direct < 0.2 mg/dL (0.0-0.3); Blood Urea Nitrogen 8 mg/dl (6-20); Gamma Glutamyl Transpeptidase 40 U/L (5-36); Uric Acid 2.2 mg/dL (2.5-8.0)
[2018-07-23] MEDS ORDERED: MAGNESIUM SULFATE IN WATER 4 GM/100 ML BAG IV ONE (07:32)
[2018-07-23] MEDS ORDERED: CALCIUM GLUCONATE 4.65 MEQ/10 ML VIAL IV ONE (07:32)
[2018-07-23] MEDS ORDERED: CALCIUM GLUCONATE 9.3 MEQ in DEXTROSE 5% IN WATER 100 ML IV ONE (08:00)
[2018-07-23] MEDS: PANTOPRAZOLE 40 MG VIAL IV SCH ×2 (08:25→16:56)
[2018-07-23] MEDS: CALCITRIOL 0.25 MCG CAPSULE PO SCH ×3 (08:26→21:05)
[2018-07-23] MEDS: LEVOTHYROXINE 125 MCG TABLET PO SCH (08:26)
[2018-07-23] MEDS: CALCIUM CARBONATE 500 MG TAB.CHEW CHEWED SCH ×2 (08:26→21:04)
[2018-07-23] MEDS: predniSONE 20 MG TABLET PO SCH (08:26)
[2018-07-23] MEDS: DULoxetine 30 MG CAPSULE PO SCH ×2 (08:26→21:05)
[2018-07-23] MEDS: MAGNESIUM OXIDE 400 MG TABLET PO SCH ×3 (08:26→21:05)
--- NOTE | 2018-07-23 15:28 | General Surgery Progress Note ---
Subjective Patient reports: feels better, still having pain, pain is less, tolerating liquids well, flatus, bowel movement, afebrile Narrative: Note initiated : 07/23/18 at 3:26 pm Service Date, if different from initiated Date: [] Patient: Dayanna Stephens 57 y/o F admitted on 07/15/18 for Laparotomy Exploration General with Adhesisolysis . Chief Complaint: [Patient is stable. She still having some gaseous distention but is passing small amounts of flatus through her stoma. She is also having small bowel movements. Discussed restarting MiraLAX to assist with evacuation. She denies having nausea.] Objective Temp Pulse Resp BP Pulse Ox 98.2 F 80 20 172/86 95 07/23/18 12:00 07/23/18 04:11 07/23/18 12:00 07/23/18 12:00 07/23/18 12:00 - Additional Data Intake & Output - Last 24 hours: Intake & Output 07/21/18 07/22/18 07/23/18 07/24/18 05:59 05:59 05:59 05:59 Intake Total 4384 / 4384 4010 / 4010 5740 / 5740 1000 / 1000 Output Total 3950 / 3950 7050 / 7050 7825 / 7825 Balance 434 / 434 -3040 / -3040 -2085 / -2085 1000 / 1000 Weight 255 lb 8 oz 256 lb 256 lb 8 oz - General physical appearance well developed, well nourished, no distress - Eyes PERRL, normal ocular movement - ENT normal pinna, normal nares, normal mucosa, no hearing loss, no congestion - Neck no masses, no bruits, trachea midline, no lymphadectomy, no venous distension - Respiratory normal expansion, normal respiratory effort, clear to percussion, clear to auscultation - Cardiovascular Cardiovascular exam: Present: normal rate and rhythm, RRR, +S1, +S2. Absent: JVD, tachycardia - Abdomen tender (Minimal tenderness of incision; stoma is unremarkable; active bowel sounds), bowel sounds (present), surgical scars (none), masses (none) - Integumentary no rash, no growths, no abnormal pigmentation - Neurologic normal coordination, normal sensation - Musculoskeletal normal gait, normal posture - Psychiatric oriented to time, oriented to person, oriented to place, speech is normal, memory intact - Labs 07/21/18 04:00 07/23/18 05:07 Diabetes panel 07/23/18 Range/Units 05:07 Sodium 144 (133-145) mmol/L Potassium 3.7 (3.3-5.1) mmol/L Chloride 105 (96-108) mmol/L Carbon Dioxide 28 (22-30) mmol/L BUN 8 (6-20) mg/dl Creatinine 0.7 (0.6-1.1) mg/dl Glucose 127 H (70-105) mg/dL Calcium 6.9 L (8.6-10.4) mg/dl AST 8 (0-37) U/l ALT 18 (0-40) U/l Alkaline Phosphatase 50 (39-117) U/L Total Protein 4.9 L (5.9-8.4) gm/dL Albumin 3.0 L (3.2-5.2) gm/dL Triglycerides 666 H (<150) mg/dl Calcium panel 07/23/18 Range/Units 05:07 Calcium 6.9 L (8.6-10.4) mg/dl Phosphorus 3.6 (2.7-4.5) mg/dL Albumin 3.0 L (3.2-5.2) gm/dL Pituitary panel 07/23/18 Range/Units 05:07 Sodium 144 (133-145) mmol/L Potassium 3.7 (3.3-5.1) mmol/L Chloride 105 (96-108) mmol/L Carbon Dioxide 28 (22-30) mmol/L BUN 8 (6-20) mg/dl Creatinine 0.7 (0.6-1.1) mg/dl Glucose 127 H (70-105) mg/dL Calcium 6.9 L (8.6-10.4) mg/dl Adrenal panel 07/23/18 Range/Units 05:07 Sodium 144 (133-145) mmol/L Potassium 3.7 (3.3-5.1) mmol/L Chloride 105 (96-108) mmol/L Carbon Dioxide 28 (22-30) mmol/L BUN 8 (6-20) mg/dl Creatinine 0.7 (0.6-1.1) mg/dl Glucose 127 H (70-105) mg/dL Calcium 6.9 L (8.6-10.4) mg/dl Total Bilirubin 0.2 (0.0-1.0) mg/dL AST 8 (0-37) U/l ALT 18 (0-40) U/l Alkaline Phosphatase 50 (39-117) U/L Total Protein 4.9 L (5.9-8.4) gm/dL Albumin 3.0 L (3.2-5.2) gm/dL Assessment and Plan (1) Chronic intestinal pseudo-obstruction Status: Acute Assessment and plan: Stable. Advanced to full liquids with Ensure Check abdominal x-rays in the morning Current Visit: No (2) Hypocalcemia Status: Acute Assessment and plan: Will switch to oral calcium Current Visit: No (3) Polyglandular autoimmune syndrome Status: Chronic Current Visit: No (4) Chronic use of steroids Problem details: for myasthenia gravis; 10+ years Status: Chronic Assessment and plan: Switch to oral prednisone Current Visit: Yes - Time Spent With Patient Total time spent is greater than 50% in coordination of care (as documented) at patient's floor/unit and/or counseling patient:
--- NOTE | 2018-07-23 15:38 | XRay Report ---
CLINICAL INFORMATION: FOLLOW -UP OF SMALL BOWEL OBSTRUCTION COMPARISON: 07/21/2018 FINDINGS: The stomach and scattered small bowel loops in the central abdomen and right lower quadrant are mildly dilated and contain air-fluid levels. The colon is decompressed. No free air IMPRESSION: Nonspecific stool gas pattern more likely an atypical ileus than a recurrent distal small bowel obstruction Interpreted and Authenticated by: All Lundberg 07/23/18
[2018-07-23] MEDS: metroNIDAZOLE 500 MG/100 ML BAG IV SCH (16:56)
[2018-07-23] MEDS: POLYETHYLENE GLYCOL 3350 17 GM PACKET PO SCH (21:04)
[2018-07-24] MEDS: fentaNYL 100 MCG/2 ML VIAL IV PRN ×7 (00:34→20:46)
[2018-07-24] MEDS: metroNIDAZOLE 500 MG/100 ML BAG IV SCH ×4 (00:35→19:38)
[2018-07-24] MEDS: PIPERACILLIN SODIUM/TAZOBACTAM 3.375 GM in DEXTROSE 5% IN WATER 50 ML IV SCH ×3 (05:33→21:01)
[2018-07-24 06:49] LABS: ALT/SGPT 16 U/l (0-40); Albumin 3.1 gm/dL (3.2-5.2); Albumin/Globulin Ratio 1.6 (1.0-2.3); Alkaline Phosphatase 51 U/L (39-117); Bilirubin,Direct < 0.2 mg/dL (0.0-0.3); Blood Urea Nitrogen 9 mg/dl (6-20); Gamma Glutamyl Transpeptidase 39 U/L (5-36); Uric Acid 2.3 mg/dL (2.5-8.0)
[2018-07-24] MEDS: PANTOPRAZOLE 40 MG VIAL IV SCH ×2 (07:53→17:39)
[2018-07-24] MEDS: 0.9 % SODIUM CHLORIDE 1,000 ML IV SCH ×3 (07:53→19:47)
[2018-07-24] MEDS: CALCIUM CARBONATE 500 MG TAB.CHEW CHEWED SCH ×2 (07:54→20:46)
[2018-07-24] MEDS: LEVOTHYROXINE 125 MCG TABLET PO SCH (07:54)
[2018-07-24] MEDS: predniSONE 20 MG TABLET PO SCH (07:54)
[2018-07-24] MEDS: CALCITRIOL 0.25 MCG CAPSULE PO SCH ×3 (07:54→20:46)
[2018-07-24] MEDS: MAGNESIUM OXIDE 400 MG TABLET PO SCH ×3 (07:54→20:47)
[2018-07-24] MEDS: DULoxetine 30 MG CAPSULE PO SCH ×2 (07:54→20:47)
[2018-07-24] MEDS: POLYETHYLENE GLYCOL 3350 17 GM PACKET PO SCH ×3 (07:55→20:46)
--- NOTE | 2018-07-24 14:03 | General Surgery Progress Note ---
Subjective Patient reports: feels better, pain is less, tolerating liquids well, flatus, bowel movement, afebrile Narrative: Note initiated : 07/24/18 at 2:01 pm Service Date, if different from initiated Date: [] Patient: Dayanna Stephens 57 y/o F admitted on 07/15/18 for Laparotomy Exploration General with Adhesisolysis . Chief Complaint: [] Patient is gradually improving. She does not have nausea. She has had a small amount of gas and small amount of soft stool. She has slightly more abdominal distention than previously. Lab work is unremarkable. Objective Temp Pulse Resp BP Pulse Ox 97.6 F 82 18 138/79 100 07/24/18 11:53 07/24/18 11:53 07/24/18 11:53 07/24/18 11:53 07/24/18 11:53 - Additional Data Intake & Output - Last 24 hours: Intake & Output 07/22/18 07/23/18 07/24/18 07/25/18 05:59 05:59 05:59 05:59 Intake Total 4010 / 4010 5740 / 5740 4040 / 4040 150 / 150 Output Total 7050 / 7050 7825 / 7825 7015 / 7015 Balance -3040 / -3040 -2085 / -2085 -2975 / -2975 150 / 150 Weight 256 lb 256 lb 8 oz 255 lb 8 oz 255 lb 8 oz - General physical appearance moderate pain - Eyes PERRL, normal ocular movement - ENT normal pinna, normal nares, normal mucosa, no hearing loss, no congestion - Neck no masses, no bruits, trachea midline, no lymphadectomy, no venous distension - Respiratory normal expansion, normal respiratory effort, clear to auscultation - Cardiovascular Cardiovascular exam: Present: RRR, +S1, +S2, tachycardia. Absent: JVD - Abdomen tender (Mild mid abdominal tenderness; active bowel sounds; fullness around stoma) - Neurologic normal coordination, normal sensation - Musculoskeletal normal gait, normal posture - Psychiatric oriented to time, oriented to person, oriented to place, speech is normal, memory intact - Labs 07/21/18 04:00 07/24/18 04:23 Diabetes panel 07/24/18 Range/Units 04:23 Sodium 143 (133-145) mmol/L Potassium 3.7 (3.3-5.1) mmol/L Chloride 102 (96-108) mmol/L Carbon Dioxide 30 (22-30) mmol/L BUN 9 (6-20) mg/dl Creatinine 0.6 (0.6-1.1) mg/dl Glucose 133 H (70-105) mg/dL Calcium 7.4 L (8.6-10.4) mg/dl AST 8 (0-37) U/l ALT 16 (0-40) U/l Alkaline Phosphatase 51 (39-117) U/L Total Protein 5.1 L (5.9-8.4) gm/dL Albumin 3.1 L (3.2-5.2) gm/dL Triglycerides 773 H (<150) mg/dl Calcium panel 07/24/18 Range/Units 04:23 Calcium 7.4 L (8.6-10.4) mg/dl Phosphorus 3.3 (2.7-4.5) mg/dL Albumin 3.1 L (3.2-5.2) gm/dL Pituitary panel 07/24/18 Range/Units 04:23 Sodium 143 (133-145) mmol/L Potassium 3.7 (3.3-5.1) mmol/L Chloride 102 (96-108) mmol/L Carbon Dioxide 30 (22-30) mmol/L BUN 9 (6-20) mg/dl Creatinine 0.6 (0.6-1.1) mg/dl Glucose 133 H (70-105) mg/dL Calcium 7.4 L (8.6-10.4) mg/dl Adrenal panel 07/24/18 Range/Units 04:23 Sodium 143 (133-145) mmol/L Potassium 3.7 (3.3-5.1) mmol/L Chloride 102 (96-108) mmol/L Carbon Dioxide 30 (22-30) mmol/L BUN 9 (6-20) mg/dl Creatinine 0.6 (0.6-1.1) mg/dl Glucose 133 H (70-105) mg/dL Calcium 7.4 L (8.6-10.4) mg/dl Total Bilirubin 0.2 (0.0-1.0) mg/dL AST 8 (0-37) U/l ALT 16 (0-40) U/l Alkaline Phosphatase 51 (39-117) U/L Total Protein 5.1 L (5.9-8.4) gm/dL Albumin 3.1 L (3.2-5.2) gm/dL Assessment and Plan (1) Chronic intestinal pseudo-obstruction Status: Acute Assessment and plan: Stable. Advanced to full liquids with Ensure Check abdominal x-rays in the morning Erythromycin 250 mg every 6 hours for pro-motility effect on gut Current Visit: No (2) Hypocalcemia Status: Acute Assessment and plan: Will switch to oral calcium Current Visit: No (3) Polyglandular autoimmune syndrome Status: Chronic Current Visit: No (4) Chronic use of steroids Problem details: for myasthenia gravis; 10+ years Status: Chronic Assessment and plan: Switch to oral prednisone Current Visit: Yes - Time Spent With Patient Total time spent is greater than 50% in coordination of care (as documented) at patient's floor/unit and/or counseling patient:
[2018-07-24] MEDS: ACETAMINOPHEN 1,000 MG/100 ML BOTTLE IV PRN (14:47)
[2018-07-24] MEDS ORDERED: ERYTHROMYCIN BASE 250 MG CAPSULE PO SCH (18:00)
[2018-07-24] MEDS: ERYTHROMYCIN BASE 250 MG CAPSULE PO SCH (18:20)
[2018-07-24] MEDS: LORazepam 2 MG/ML VIAL IV PRN (19:47)
[2018-07-25] MEDS: metroNIDAZOLE 500 MG/100 ML BAG IV SCH ×5 (00:14→19:30)
[2018-07-25] MEDS: ERYTHROMYCIN BASE 250 MG CAPSULE PO SCH ×5 (00:14→23:52)
[2018-07-25] MEDS: fentaNYL 100 MCG/2 ML VIAL IV PRN ×7 (00:28→21:20)
[2018-07-25] MEDS: 0.9 % SODIUM CHLORIDE 1,000 ML IV SCH ×5 (04:20→19:38)
[2018-07-25] MEDS: ACETAMINOPHEN 1,000 MG/100 ML BOTTLE IV PRN ×3 (04:41→19:57)
[2018-07-25] MEDS: PIPERACILLIN SODIUM/TAZOBACTAM 3.375 GM in DEXTROSE 5% IN WATER 50 ML IV SCH ×3 (05:53→22:32)
[2018-07-25 06:10] LABS: Basophils # (Auto) 0 K/mcL (0.0-0.3); Basophils % (Auto) 0.1 % (0.0-2.0); Eosinophils # (Auto) 0.5 K/mcL (0.0-0.7); Eosinophils % (Auto) 6.1 % (0.0-7.0); Lymphocytes # (Auto) 2.1 K/mcL (1.5-4.8); Lymphocytes % (Auto) 25.5 % (15.5-49.0); Mean Cell Volume 86.1 fL (80.0-100.0); Mean Corpuscular HGB Conc 32.5 g/dL (31.0-36.0); Monocytes # (Auto) 0.7 K/mcL (0.1-0.9); Monocytes % (Auto) 8.3 % (1.0-12.0); Platelet Count 267 K/mcL (140-440); RBC 3.19 M/mcL (4.00-5.20); Red Cell Distribution Width 16.7 % (11.5-14.5)
[2018-07-25 06:34] LABS: ALT/SGPT 12 U/l (0-40); Albumin/Globulin Ratio 1.5 (1.0-2.3); Alkaline Phosphatase 50 U/L (39-117); Bilirubin,Direct < 0.2 mg/dL (0.0-0.3); Blood Urea Nitrogen 8 mg/dl (6-20); Gamma Glutamyl Transpeptidase 33 U/L (5-36); Uric Acid 2.3 mg/dL (2.5-8.0)
[2018-07-25] MEDS ORDERED: MAGNESIUM SULFATE 32.48 MEQ in DEXTROSE 5% IN WATER 50 ML IV ONE (07:28)
[2018-07-25] MEDS: predniSONE 20 MG TABLET PO SCH (08:04)
[2018-07-25] MEDS: LEVOTHYROXINE 125 MCG TABLET PO SCH (08:04)
[2018-07-25] MEDS: PANTOPRAZOLE 40 MG VIAL IV SCH ×2 (08:04→16:32)
[2018-07-25] MEDS: MAGNESIUM SULFATE IN WATER 4 GM/100 ML BAG IV SCH (09:02)
[2018-07-25] MEDS: CALCITRIOL 0.25 MCG CAPSULE PO SCH ×3 (09:02→21:22)
[2018-07-25] MEDS: MAGNESIUM OXIDE 400 MG TABLET PO SCH ×3 (09:02→21:21)
[2018-07-25] MEDS: POLYETHYLENE GLYCOL 3350 17 GM PACKET PO SCH ×3 (09:02→21:21)
[2018-07-25] MEDS: DULoxetine 30 MG CAPSULE PO SCH ×2 (09:03→21:21)
[2018-07-25] MEDS: CALCIUM CARBONATE 500 MG TAB.CHEW CHEWED SCH ×2 (09:03→21:22)
--- NOTE | 2018-07-25 11:57 | Operative Note ---
DATE OF OPERATION: 07/18/2018 PREOPERATIVE DIAGNOSIS: Small-bowel obstruction. POSTOPERATIVE DIAGNOSIS: Small-bowel obstruction due to adhesions. PROCEDURE: Exploratory laparotomy with adhesiolysis. SURGEON: Bertha Currie M.D. FINDINGS: Major dilation of the entire small bowel and colon. Three areas of partial obstruction of the distal small bowel with a partially-decompressed terminal ileum, though the terminal ileum was also dilated, as well as the entire colon extending down to the colostomy. The hernia repair with the mesh graft was intact and was not exposed. It was covered with omentum, and this was left in place as a protective area against reherniation. DESCRIPTION OF PROCEDURE: Under general anesthesia, the patient's abdomen was prepped and draped in a sterile field. The colostomy had been closed prior to the prepping being carried out, and the abdominal wall was covered with an Ioban drape. The old incision was opened. Upon entering the abdomen, it was noted that she had major dilation of all of her small bowel and colon. The omentum was densely adherent to some loops of small bowel. There were two loops of small bowel that were adherent to the lower abdominal wall. These were taken down using sharp dissection with Metzenbaum scissors. These areas were not obstructed, however. The area of the parastomal hernia repair was inspected, and there was no further herniation. The omentum was tightly adherent to the mesh that was used to cover the defect, and this was left in place. The bowel was then removed from the peritoneal cavity and inspected. There were three areas of partial obstruction of the distal small bowel. The terminal ileum was also slightly stenosed due to adhesions. Total adhesiolysis of all of the small bowel was done. There was one area of serosal tear that was repaired using 3-0 Monocryl. Irrigation was carried out. The colon was inspected. The colon was dilated starting at the cecum, but it was dilated throughout, extending all the way to the stoma. There was no evidence of obstruction at the stoma level. The bowel was placed back into the peritoneal cavity. Sponge, needle, instrument and blade counts were verified as correct. The fascia was closed with running locking #1 Prolene. Subcutaneous tissue was closed with 2-0 Monocryl. Skin was closed with kori. The incision was closed with Tegaderm after which the sutures from the stoma were removed, and a new stoma appliance was placed. The patient tolerated the procedure well. She awakened from anesthesia uneventfully, was extubated and transferred to the postanesthetic care unit in stable, satisfactory condition. LCS:naldo Job ID: [id number] Doc ID: [id number] Bertha Currie M.D.
--- NOTE | 2018-07-25 14:13 | General Surgery Progress Note ---
Subjective Patient reports: feels better, pain is less, tolerating liquids well, flatus, bowel movement, afebrile Narrative: Note initiated : 07/25/18 at 2:12 pm Service Date, if different from initiated Date: [] Patient: Dayanna Stephens 57 y/o F admitted on 07/15/18 for Laparotomy Exploration General with Adhesisolysis . Chief Complaint: [Patient is having more bowel movements and passing more gas. She still has mild distention. She denies nausea. She does have swelling around her stoma with mild discomfort in that area.] Objective Temp Pulse Resp BP Pulse Ox 97.4 F 76 18 152/84 93 07/25/18 10:54 07/25/18 07:53 07/25/18 10:54 07/25/18 10:54 07/25/18 10:54 - Additional Data Intake & Output - Last 24 hours: Intake & Output 07/23/18 07/24/18 07/25/18 07/26/18 05:59 05:59 05:59 05:59 Intake Total 5740 / 5740 4140 / 4140 4740 / 4740 2650 / 2650 Output Total 7825 / 7825 7015 / 7015 2375 / 2375 3700 / 3700 Balance -2085 / -2085 -2875 / -2875 2365 / 2365 -1050 / -1050 Weight 256 lb 8 oz 255 lb 8 oz 254 lb - General physical appearance well developed, well nourished, no distress, severe distress - Eyes PERRL, normal ocular movement - Neck no masses, no bruits, trachea midline, no lymphadectomy, no venous distension - Respiratory normal expansion, normal respiratory effort, clear to auscultation - Cardiovascular Cardiovascular exam: Present: normal rate and rhythm, RRR, +S1, +S2. Absent: JVD, tachycardia - Abdomen tender (Mild tenderness around stoma but with good active bowel sounds) - Neurologic normal coordination, normal sensation - Musculoskeletal normal gait, normal posture - Psychiatric oriented to time, oriented to person, oriented to place, speech is normal, memory intact - Labs 07/25/18 04:26 07/25/18 04:26 Diabetes panel 07/25/18 Range/Units 04:26 Sodium 146 H (133-145) mmol/L Potassium 3.8 (3.3-5.1) mmol/L Chloride 102 (96-108) mmol/L Carbon Dioxide 33 H (22-30) mmol/L BUN 8 (6-20) mg/dl Creatinine 0.6 (0.6-1.1) mg/dl Glucose 139 H (70-105) mg/dL Calcium 7.5 L (8.6-10.4) mg/dl AST 7 (0-37) U/l ALT 12 (0-40) U/l Alkaline Phosphatase 50 (39-117) U/L Total Protein 5.0 L (5.9-8.4) gm/dL Albumin 3.0 L (3.2-5.2) gm/dL Triglycerides 613 H (<150) mg/dl Calcium panel 07/25/18 Range/Units 04:26 Calcium 7.5 L (8.6-10.4) mg/dl Phosphorus 3.3 (2.7-4.5) mg/dL Albumin 3.0 L (3.2-5.2) gm/dL Pituitary panel 07/25/18 Range/Units 04:26 Sodium 146 H (133-145) mmol/L Potassium 3.8 (3.3-5.1) mmol/L Chloride 102 (96-108) mmol/L Carbon Dioxide 33 H (22-30) mmol/L BUN 8 (6-20) mg/dl Creatinine 0.6 (0.6-1.1) mg/dl Glucose 139 H (70-105) mg/dL Calcium 7.5 L (8.6-10.4) mg/dl Adrenal panel 07/25/18 Range/Units 04:26 Sodium 146 H (133-145) mmol/L Potassium 3.8 (3.3-5.1) mmol/L Chloride 102 (96-108) mmol/L Carbon Dioxide 33 H (22-30) mmol/L BUN 8 (6-20) mg/dl Creatinine 0.6 (0.6-1.1) mg/dl Glucose 139 H (70-105) mg/dL Calcium 7.5 L (8.6-10.4) mg/dl Total Bilirubin 0.2 (0.0-1.0) mg/dL AST 7 (0-37) U/l ALT 12 (0-40) U/l Alkaline Phosphatase 50 (39-117) U/L Total Protein 5.0 L (5.9-8.4) gm/dL Albumin 3.0 L (3.2-5.2) gm/dL Assessment and Plan (1) Chronic intestinal pseudo-obstruction Status: Acute Assessment and plan: Stable. Advanced to full liquids with Ensure Check abdominal x-rays in the morning Erythromycin 250 mg every 6 hours for pro-motility effect on gut Current Visit: No (2) Hypocalcemia Status: Acute Assessment and plan: Will switch to oral calcium Current Visit: No (3) Polyglandular autoimmune syndrome Status: Chronic Current Visit: No (4) Chronic use of steroids Problem details: for myasthenia gravis; 10+ years Status: Chronic Assessment and plan: Switch to oral prednisone Current Visit: Yes - Time Spent With Patient Total time spent is greater than 50% in coordination of care (as documented) at patient's floor/unit and/or counseling patient:
[2018-07-26] MEDS: fentaNYL 100 MCG/2 ML VIAL IV PRN ×7 (00:52→22:01)
[2018-07-26] MEDS: metroNIDAZOLE 500 MG/100 ML BAG IV SCH ×4 (00:57→19:10)
[2018-07-26] MEDS: ACETAMINOPHEN 1,000 MG/100 ML BOTTLE IV PRN ×3 (04:12→18:03)
[2018-07-26 05:57] LABS: Basophils # (Auto) 0 K/mcL (0.0-0.3); Basophils % (Auto) 0.4 % (0.0-2.0); Eosinophils # (Auto) 0.5 K/mcL (0.0-0.7); Eosinophils % (Auto) 6.1 % (0.0-7.0); Granulocytes % (Auto) 58.5 % (38.0-78.0); Lymphocytes # (Auto) 2.4 K/mcL (1.5-4.8); Lymphocytes % (Auto) 26.7 % (15.5-49.0); Mean Cell Volume 86.2 fL (80.0-100.0); Mean Corpuscular HGB Conc 31.9 g/dL (31.0-36.0); Mean Corpuscular Hemoglobin 27.5 pg (26.0-34.0); Monocytes # (Auto) 0.8 K/mcL (0.1-0.9); Monocytes % (Auto) 8.3 % (1.0-12.0); Platelet Count 301 K/mcL (140-440); RBC 3.34 M/mcL (4.00-5.20); Red Cell Distribution Width 17.1 % (11.5-14.5)
[2018-07-26] MEDS: ERYTHROMYCIN BASE 250 MG CAPSULE PO SCH ×3 (06:03→17:14)
[2018-07-26] MEDS: PIPERACILLIN SODIUM/TAZOBACTAM 3.375 GM in DEXTROSE 5% IN WATER 50 ML IV SCH ×3 (06:03→22:04)
[2018-07-26 06:05] LABS: ALT/SGPT 12 U/l (0-40); Albumin 3.4 gm/dL (3.2-5.2); Albumin/Globulin Ratio 1.7 (1.0-2.3); Alkaline Phosphatase 50 U/L (39-117); Bilirubin,Direct < 0.2 mg/dL (0.0-0.3); Blood Urea Nitrogen 8 mg/dl (6-20); Gamma Glutamyl Transpeptidase 32 U/L (5-36); Uric Acid 2.6 mg/dL (2.5-8.0)
[2018-07-26] MEDS: LEVOTHYROXINE 125 MCG TABLET PO SCH (07:47)
[2018-07-26] MEDS: PANTOPRAZOLE 40 MG VIAL IV SCH ×2 (07:47→17:14)
[2018-07-26] MEDS: MAGNESIUM SULFATE IN WATER 4 GM/100 ML BAG IV SCH (10:36)
[2018-07-26] MEDS: POLYETHYLENE GLYCOL 3350 17 GM PACKET PO SCH ×3 (10:40→22:01)
[2018-07-26] MEDS: DULoxetine 30 MG CAPSULE PO SCH ×2 (10:40→22:00)
[2018-07-26] MEDS: MAGNESIUM OXIDE 400 MG TABLET PO SCH ×3 (10:40→22:00)
[2018-07-26] MEDS: predniSONE 20 MG TABLET PO SCH (10:40)
[2018-07-26] MEDS: CALCIUM CARBONATE 500 MG TAB.CHEW CHEWED SCH ×2 (10:41→22:01)
[2018-07-26] MEDS: 0.9 % SODIUM CHLORIDE 10 ML SYRINGE IV SCH ×2 (10:41→22:01)
[2018-07-26] MEDS: CALCITRIOL 0.25 MCG CAPSULE PO SCH ×3 (10:41→22:00)
[2018-07-26] MEDS: 0.9 % SODIUM CHLORIDE 1,000 ML IV SCH ×2 (12:56→13:56)
[2018-07-26] MEDS: PROMETHAZINE 25 MG/ML VIAL IV PRN ×2 (13:48→18:03)
--- NOTE | 2018-07-26 14:04 | General Surgery Progress Note ---
Subjective Patient reports: pain is less, flatus, bowel movement, afebrile Narrative: Note initiated : 07/26/18 at 2:02 pm Service Date, if different from initiated Date: [] Patient: Dayanna Stephens 57 y/o F admitted on 07/15/18 for Laparotomy Exploration General with Adhesisolysis . Chief Complaint: [Patient states that she has been having some nausea. 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 She has not had vomiting. She does have some swelling around her stoma which suggests that she may have another parastomal hernia however the area is very soft and she has good active bowel sounds. The plan was to discharge her today but I will delay her discharge and check her abdominal x-ray in the morning.] Objective Temp Pulse Resp BP Pulse Ox 97.8 F 90 16 158/89 97 07/26/18 11:10 07/26/18 04:00 07/26/18 11:10 07/26/18 11:10 07/26/18 11:10 - Additional Data Intake & Output - Last 24 hours: Intake & Output 07/24/18 07/25/18 07/26/18 07/27/18 05:59 05:59 05:59 05:59 Intake Total 4140 / 4140 4740 / 4740 5823 / 5823 1350 / 1350 Output Total 7015 / 7015 2375 / 2375 8960 / 8960 2450 / 2450 Balance -2875 / -2875 2365 / 2365 -3137 / -3137 -1100 / -1100 Weight 255 lb 8 oz 254 lb 254 lb - Labs 07/26/18 04:22 07/26/18 04:23 Diabetes panel 07/26/18 Range/Units 04:23 Sodium 142 (133-145) mmol/L Potassium 3.9 (3.3-5.1) mmol/L Chloride 99 (96-108) mmol/L Carbon Dioxide 33 H (22-30) mmol/L BUN 8 (6-20) mg/dl Creatinine 0.7 (0.6-1.1) mg/dl Glucose 138 H (70-105) mg/dL Calcium 7.6 L (8.6-10.4) mg/dl AST 7 (0-37) U/l ALT 12 (0-40) U/l Alkaline Phosphatase 50 (39-117) U/L Total Protein 5.4 L (5.9-8.4) gm/dL Albumin 3.4 (3.2-5.2) gm/dL Triglycerides 525 H (<150) mg/dl Calcium panel 07/26/18 Range/Units 04:23 Calcium 7.6 L (8.6-10.4) mg/dl Phosphorus 3.2 (2.7-4.5) mg/dL Albumin 3.4 (3.2-5.2) gm/dL Pituitary panel 07/26/18 Range/Units 04:23 Sodium 142 (133-145) mmol/L Potassium 3.9 (3.3-5.1) mmol/L Chloride 99 (96-108) mmol/L Carbon Dioxide 33 H (22-30) mmol/L BUN 8 (6-20) mg/dl Creatinine 0.7 (0.6-1.1) mg/dl Glucose 138 H (70-105) mg/dL Calcium 7.6 L (8.6-10.4) mg/dl Adrenal panel 07/26/18 Range/Units 04:23 Sodium 142 (133-145) mmol/L Potassium 3.9 (3.3-5.1) mmol/L Chloride 99 (96-108) mmol/L Carbon Dioxide 33 H (22-30) mmol/L BUN 8 (6-20) mg/dl Creatinine 0.7 (0.6-1.1) mg/dl Glucose 138 H (70-105) mg/dL Calcium 7.6 L (8.6-10.4) mg/dl Total Bilirubin 0.2 (0.0-1.0) mg/dL AST 7 (0-37) U/l ALT 12 (0-40) U/l Alkaline Phosphatase 50 (39-117) U/L Total Protein 5.4 L (5.9-8.4) gm/dL Albumin 3.4 (3.2-5.2) gm/dL Assessment and Plan (1) Chronic intestinal pseudo-obstruction Status: Acute Assessment and plan: Stable. Advanced to full liquids with Ensure Check abdominal x-rays in the morning Erythromycin 250 mg every 6 hours for pro-motility effect on gut Current Visit: No (2) Hypocalcemia Status: Acute Assessment and plan: Will switch to oral calcium Current Visit: No (3) Polyglandular autoimmune syndrome Status: Chronic Current Visit: No (4) Chronic use of steroids Problem details: for myasthenia gravis; 10+ years Status: Chronic Assessment and plan: Switch to oral prednisone Current Visit: Yes - Time Spent With Patient Total time spent is greater than 50% in coordination of care (as documented) at patient's floor/unit and/or counseling patient:
[2018-07-27] MEDS: ERYTHROMYCIN BASE 250 MG CAPSULE PO SCH ×4 (00:06→16:55)
[2018-07-27] MEDS: ACETAMINOPHEN 1,000 MG/100 ML BOTTLE IV PRN ×2 (01:18→08:44)
[2018-07-27] MEDS: fentaNYL 100 MCG/2 ML VIAL IV PRN ×5 (01:19→14:30)
[2018-07-27] MEDS: metroNIDAZOLE 500 MG/100 ML BAG IV SCH ×3 (01:25→12:41)
[2018-07-27] MEDS: PIPERACILLIN SODIUM/TAZOBACTAM 3.375 GM in DEXTROSE 5% IN WATER 50 ML IV SCH ×2 (05:55→14:30)
[2018-07-27] MEDS: PANTOPRAZOLE 40 MG VIAL IV SCH ×2 (06:46→16:55)
[2018-07-27] MEDS: LEVOTHYROXINE 125 MCG TABLET PO SCH (06:46)
[2018-07-27] MEDS: 0.9 % SODIUM CHLORIDE 1,000 ML IV SCH (06:47)
[2018-07-27 06:59] LABS: Basophils # (Auto) 0 K/mcL (0.0-0.3); Basophils % (Auto) 0.2 % (0.0-2.0); Eosinophils # (Auto) 0.3 K/mcL (0.0-0.7); Lymphocytes # (Auto) 1.8 K/mcL (1.5-4.8); Lymphocytes % (Auto) 20.7 % (15.5-49.0); Mean Cell Volume 86.6 fL (80.0-100.0); Mean Corpuscular HGB Conc 31.9 g/dL (31.0-36.0); Mean Corpuscular Hemoglobin 27.6 pg (26.0-34.0); Monocytes # (Auto) 0.8 K/mcL (0.1-0.9); Monocytes % (Auto) 9.1 % (1.0-12.0); Platelet Count 294 K/mcL (140-440); RBC 3.37 M/mcL (4.00-5.20); Red Cell Distribution Width 17.1 % (11.5-14.5)
[2018-07-27 07:08] LABS: ALT/SGPT 11 U/l (0-40); Albumin 3.3 gm/dL (3.2-5.2); Albumin/Globulin Ratio 1.6 (1.0-2.3); Alkaline Phosphatase 52 U/L (39-117); Bilirubin,Direct < 0.2 mg/dL (0.0-0.3); Blood Urea Nitrogen 8 mg/dl (6-20); Gamma Glutamyl Transpeptidase 31 U/L (5-36); Uric Acid 2.5 mg/dL (2.5-8.0)
[2018-07-27] MEDS: predniSONE 20 MG TABLET PO SCH (08:36)
[2018-07-27] MEDS: POLYETHYLENE GLYCOL 3350 17 GM PACKET PO SCH ×2 (08:36→16:55)
[2018-07-27] MEDS: CALCIUM CARBONATE 500 MG TAB.CHEW CHEWED SCH (08:36)
[2018-07-27] MEDS: DULoxetine 30 MG CAPSULE PO SCH (08:36)
[2018-07-27] MEDS: MAGNESIUM OXIDE 400 MG TABLET PO SCH ×2 (08:37→16:54)
[2018-07-27] MEDS: CALCITRIOL 0.25 MCG CAPSULE PO SCH ×2 (08:38→16:55)
[2018-07-27] MEDS: 0.9 % SODIUM CHLORIDE 10 ML SYRINGE IV SCH (08:38)
--- NOTE | 2018-07-27 10:28 | XRay Report ---
HISTORY: Follow-up small bowel obstruction FINDINGS: There are several small air-fluid levels within nondilated loops of small intestine, and within a couple loops of colon. The stomach is now decompressed. The caliber of the small bowel is smaller today than it was on 07/23/18. No free intra-abdominal air is present. There are clips in gallbladder fossa and there is an ostomy in the left side of the pelvis. IMPRESSION: Resolving ileus or incomplete distal small bowel obstruction Interpreted and Authenticated by: Zay Juarez 07/27/18
--- NOTE | 2018-07-27 14:12 | Discharge Summary ---
Providers - Providers Patient information: Note initiated : 07/27/18 at 2:09 pm Service Date, if different from initiated Date: [] Patient: Dayanna Stephens 57 y/o F admitted on 07/15/18 for Laparotomy Exploration General with Adhesisolysis . Chief Complaint: [] Date of admission: 07/15/18 Discharge date: 07/27/18 Attending physician: Bertha Currie Hospitalization Hospital course: 57Y/O female Discharge diagnosis: small bowel obstruction Secondary discharge diagnosis: CHRONIC INTESTINAL PSEUDOOBSTRUCTION CHRONIC CONSTIPATION HYPOCALCEMIA PRERENAL AZOTEMIA Reason for admission: bowel obstruction Procedures: EXPLORATORY LAPAROTOMY WITH ADHESIOLYSIS Pertinent studies/significant findings: CT OF ABDOMEN AND PELVIS SMALL BOWL FOLLOWTHROUGH Complications: NONE Exam Temp Pulse Resp BP Pulse Ox 97.9 F 103 H 18 157/88 94 07/27/18 11:14 07/27/18 11:14 07/27/18 11:14 07/27/18 11:14 07/27/18 11:14 - General physical appearance well developed, well nourished, no distress - Eyes PERRL, normal ocular movement - ENT normal pinna, normal nares, normal mucosa, no hearing loss, no congestion - Head Head exam IM: Present: atraumatic, normocephalic - Neck no masses, no bruits, trachea midline, no lymphadectomy, no venous distension - Cardiovascular Cardiovascular exam IM: Present: normal rate and rhythm - Respiratory normal expansion, normal respiratory effort, clear to percussion, clear to auscultation - Abdomen Abdomen: Present: soft, tender, bowel sounds Hernia: Present: none - Genitourinary Present: normal external genitalia - Rectum Rectum: Present: normal sphincter tone, no hemorrhoids, no tenderness, no masses , no bleeding - Integumentary Present: no rash, no growths, no abnormal pigmentation - Neurologic Present: normal coordination, normal sensation - Musculoskeletal Present: normal gait, normal posture - Psychiatric Present: oriented to time, oriented to person, oriented to place, speech is normal, memory intact Discharge Plan - Patient/Caregiver Discharge Instructions Activity: increase activity as tolerated Diet: Low Fiber - Follow up Plan Follow up with: Bertha Currie MD [Physician] - (Dayanna' wants to schedule follow up appointment.) Douglas Haque MD [Primary Care Provider] - Disposition: Home, Self-Care Prognosis: Good Rehab Potential: Good I certify that the patient requires SNF services.: No Overall status at discharge: patient is back to baseline Pending Studies Resuscitation Status Full Code Diet Full Liquid Diet Start SatJul 22 1229 Calcitriol (Rocaltrol) 0.5 mcg PO TID [facility] Last Admin: 07/27/18 08:38 Dose: 0.5 mcg Admin: 07/26/18 22:00 Dose: 0.5 mcg Admin: 07/26/18 15:26 Dose: 0.5 mcg Admin: 07/26/18 10:41 Dose: 0.5 mcg Admin: 07/25/18 21:22 Dose: 0.5 mcg Admin: 07/25/18 15:07 Dose: 0.5 mcg Admin: 07/25/18 09:02 Dose: 0.5 mcg Admin: 07/24/18 20:46 Dose: 0.5 mcg Admin: 07/24/18 13:46 Dose: 0.5 mcg Admin: 07/24/18 07:54 Dose: 0.5 mcg Admin: 07/23/18 21:05 Dose: 0.5 mcg Admin: 07/23/18 16:56 Dose: 0.5 mcg Admin: 07/23/18 08:26 Dose: 0.5 mcg Admin: 07/22/18 20:09 Dose: 0.5 mcg Admin: 07/22/18 15:07 Dose: 0.5 mcg Calcium Carbonate/Glycine (Tums) 1,000 mg CHEWED BID [facility] Last Admin: 07/27/18 08:36 Dose: 1,000 mg Admin: 07/26/18 22:01 Dose: 1,000 mg Admin: 07/26/18 10:41 Dose: 1,000 mg Admin: 07/25/18 21:22 Dose: 1,000 mg Admin: 07/25/18 09:03 Dose: 1,000 mg Admin: 07/24/18 20:46 Dose: 1,000 mg Admin: 07/24/18 07:54 Dose: 1,000 mg Admin: 07/23/18 21:04 Dose: 1,000 mg Admin: 07/23/18 08:26 Dose: 1,000 mg Admin: 07/22/18 20:09 Dose: 1,000 mg Duloxetine HCl (Cymbalta) 30 mg PO BID [facility] Last Admin: 07/27/18 08:36 Dose: 30 mg Admin: 07/26/18 22:00 Dose: 30 mg Admin: 07/26/18 10:40 Dose: 30 mg Admin: 07/25/18 21:21 Dose: 30 mg Admin: 07/25/18 09:03 Dose: 30 mg Admin: 07/24/18 20:47 Dose: 30 mg Admin: 07/24/18 07:54 Dose: 30 mg Admin: 07/23/18 21:05 Dose: 30 mg Admin: 07/23/18 08:26 Dose: 30 mg Admin: 07/22/18 20:09 Dose: 30 mg Erythromycin (Erythromycin) 250 mg PO Q6H [facility] Last Admin: 07/27/18 11:10 Dose: 250 mg Admin: 07/27/18 05:55 Dose: 250 mg Admin: 07/27/18 00:06 Dose: 250 mg Admin: 07/26/18 17:14 Dose: 250 mg Admin: 07/26/18 11:37 Dose: 250 mg Admin: 07/26/18 06:03 Dose: 250 mg Admin: 07/25/18 23:52 Dose: 250 mg Admin: 07/25/18 18:16 Dose: 250 mg Admin: 07/25/18 12:17 Dose: 250 mg Admin: 07/25/18 05:54 Dose: 250 mg Admin: 07/25/18 00:14 Dose: 250 mg Admin: 07/24/18 18:20 Dose: 250 mg Fentanyl (Sublimaze) 50 mcg IV Q3HP PRN PRN Reason: PAIN LEVEL > 6 Last Admin: 07/27/18 11:09 Dose: 50 mcg Admin: 07/27/18 07:50 Dose: 50 mcg Admin: 07/27/18 04:10 Dose: 50 mcg Admin: 07/27/18 01:19 Dose: 50 mcg Admin: 07/26/18 22:01 Dose: 50 mcg Admin: 07/26/18 19:08 Dose: 50 mcg Admin: 07/26/18 15:33 Dose: 50 mcg Admin: 07/26/18 11:23 Dose: 50 mcg Admin: 07/26/18 07:45 Dose: 50 mcg Admin: 07/26/18 04:13 Dose: 50 mcg Admin: 07/26/18 00:52 Dose: 50 mcg Admin: 07/25/18 21:20 Dose: 50 mcg Admin: 07/25/18 18:15 Dose: 50 mcg Admin: 07/25/18 15:07 Dose: 50 mcg Admin: 07/25/18 12:06 Dose: 50 mcg Admin: 07/25/18 09:03 Dose: 50 mcg Admin: 07/25/18 04:41 Dose: 50 mcg Admin: 07/25/18 00:28 Dose: 50 mcg Admin: 07/24/18 20:46 Dose: 50 mcg Admin: 07/24/18 17:39 Dose: 50 mcg Admin: 07/24/18 13:48 Dose: 50 mcg Admin: 07/24/18 10:13 Dose: 50 mcg Admin: 07/24/18 07:08 Dose: 50 mcg Admin: 07/24/18 03:36 Dose: 50 mcg Admin: 07/24/18 00:34 Dose: 50 mcg Admin: 07/23/18 21:12 Dose: 50 mcg Admin: 07/23/18 17:54 Dose: 50 mcg Admin: 07/23/18 14:21 Dose: 50 mcg Admin: 07/23/18 11:20 Dose: 50 mcg Admin: 07/23/18 08:35 Dose: 50 mcg Admin: 07/23/18 05:16 Dose: 50 mcg Admin: 07/23/18 02:10 Dose: 50 mcg Admin: 07/22/18 23:27 Dose: 50 mcg Admin: 07/22/18 20:00 Dose: 50 mcg Admin: 07/22/18 16:14 Dose: 50 mcg Admin: 07/22/18 12:59 Dose: 50 mcg Admin: 07/22/18 09:46 Dose: 50 mcg Admin: 07/22/18 06:37 Dose: 50 mcg Admin: 07/22/18 03:12 Dose: 50 mcg Admin: 07/22/18 00:21 Dose: 50 mcg Admin: 07/21/18 20:58 Dose: 50 mcg Admin: 07/21/18 18:10 Dose: 50 mcg Admin: 07/21/18 15:02 Dose: 50 mcg Admin: 07/21/18 12:21 Dose: 50 mcg Admin: 07/21/18 08:54 Dose: 50 mcg Admin: 07/21/18 05:32 Dose: 50 mcg Admin: 07/21/18 01:57 Dose: 50 mcg Admin: 07/20/18 22:03 Dose: 50 mcg Admin: 07/20/18 19:11 Dose: 50 mcg Admin: 07/20/18 15:57 Dose: 50 mcg Admin: 07/20/18 12:40 Dose: 50 mcg Admin: 07/20/18 09:41 Dose: 50 mcg Admin: 07/20/18 06:35 Dose: 50 mcg Admin: 07/20/18 02:09 Dose: 50 mcg Admin: 07/19/18 21:29 Dose: 50 mcg Admin: 07/19/18 17:31 Dose: 50 mcg Admin: 07/19/18 14:40 Dose: 50 mcg Admin: 07/19/18 11:26 Dose: 25 mcg Piperacillin Sod/Tazobactam (Sod 3.375 gm/ Dextrose) 50 mls @ 100 mls/hr IV Q8H [facility] Last Infusion: 07/27/18 06:27 Dose: 0 mls/hr Admin: 07/27/18 05:55 Dose: 100 mls/hr Infusion: 07/26/18 22:34 Dose: 0 mls/hr Admin: 07/26/18 22:04 Dose: 100 mls/hr Infusion: 07/26/18 17:18 Dose: 0 mls/hr Admin: 07/26/18 14:29 Dose: 100 mls/hr Infusion: 07/26/18 07:58 Dose: 0 mls/hr Admin: 07/26/18 06:03 Dose: 100 mls/hr Infusion: 07/25/18 23:02 Dose: 0 mls/hr Admin: 07/25/18 22:32 Dose: 100 mls/hr Infusion: 07/25/18 16:32 Dose: 100 mls/hr Admin: 07/25/18 14:32 Dose: 100 mls/hr Infusion: 07/25/18 06:48 Dose: 0 mls/hr Admin: 07/25/18 05:53 Dose: 100 mls/hr Infusion: 07/24/18 21:31 Dose: 100 mls/hr Admin: 07/24/18 21:01 Dose: 100 mls/hr Infusion: 07/24/18 15:17 Dose: 100 mls/hr Admin: 07/24/18 14:47 Dose: 100 mls/hr Infusion: 07/24/18 07:55 Dose: 0 mls/hr Admin: 07/24/18 05:33 Dose: 100 mls/hr Infusion: 07/23/18 21:46 Dose: 100 mls/hr Admin: 07/23/18 21:16 Dose: 100 mls/hr Infusion: 07/23/18 13:35 Dose: 0 mls/hr Admin: 07/23/18 13:05 Dose: 100 mls/hr Infusion: 07/23/18 05:47 Dose: 0 mls/hr Admin: 07/23/18 05:17 Dose: 100 mls/hr Infusion: 07/22/18 22:40 Dose: 100 mls/hr Admin: 07/22/18 22:10 Dose: 100 mls/hr Infusion: 07/22/18 16:15 Dose: 0 mls/hr Admin: 07/22/18 14:08 Dose: 100 mls/hr Infusion: 07/22/18 06:54 Dose: 0 mls/hr Admin: 07/22/18 05:42 Dose: 100 mls/hr Infusion: 07/21/18 23:41 Dose: 100 mls/hr Admin: 07/21/18 23:11 Dose: 100 mls/hr Infusion: 07/21/18 15:27 Dose: 0 mls/hr Admin: 07/21/18 14:57 Dose: 100 mls/hr Infusion: 07/21/18 06:05 Dose: 0 mls/hr Admin: 07/21/18 05:33 Dose: 100 mls/hr Infusion: 07/20/18 22:37 Dose: 100 mls/hr Admin: 07/20/18 22:07 Dose: 100 mls/hr Infusion: 07/20/18 15:00 Dose: 0 mls/hr Admin: 07/20/18 14:27 Dose: 100 mls/hr Infusion: 07/20/18 06:05 Dose: 0 mls/hr Admin: 07/20/18 05:24 Dose: 100 mls/hr Infusion: 07/19/18 22:30 Dose: 0 mls/hr Admin: 07/19/18 21:30 Dose: 100 mls/hr Infusion: 07/19/18 15:15 Dose: 0 mls/hr Admin: 07/19/18 14:42 Dose: 100 mls/hr Infusion: 07/19/18 07:00 Dose: 0 mls/hr Admin: 07/19/18 06:21 Dose: 100 mls/hr Infusion: 07/18/18 22:35 Dose: 0 mls/hr Admin: 07/18/18 21:59 Dose: 100 mls/hr Acetaminophen (Ofirmev) 1,000 mg in 100 mls @ 200 mls/hr IV Q6HP PRN PRN Reason: Pain Last Infusion: 07/27/18 10:38 Dose: 0 mls/hr Admin: 07/27/18 08:44 Dose: 200 mls/hr Infusion: 07/27/18 06:26 Dose: 0 mls/hr Admin: 07/27/18 01:18 Dose: 200 mls/hr Infusion: 07/26/18 20:31 Dose: 0 mls/hr Admin: 07/26/18 18:03 Dose: 200 mls/hr Infusion: 07/26/18 12:51 Dose: 0 mls/hr Admin: 07/26/18 11:23 Dose: 200 mls/hr Infusion: 07/26/18 10:36 Dose: 0 mls/hr Admin: 07/26/18 04:12 Dose: 200 mls/hr Infusion: 07/25/18 20:27 Dose: 200 mls/hr Admin: 07/25/18 19:57 Dose: 200 mls/hr Infusion: 07/25/18 12:45 Dose: 0 mls/hr Admin: 07/25/18 12:07 Dose: 200 mls/hr Infusion: 07/25/18 05:54 Dose: 0 mls/hr Admin: 07/25/18 04:41 Dose: 200 mls/hr Infusion: 07/24/18 15:17 Dose: 0 mls/hr Admin: 07/24/18 14:47 Dose: 200 mls/hr Infusion: 07/23/18 20:00 Dose: 200 mls/hr Admin: 07/23/18 19:30 Dose: 200 mls/hr Infusion: 07/23/18 09:06 Dose: 0 mls/hr Admin: 07/23/18 08:36 Dose: 200 mls/hr Infusion: 07/23/18 02:42 Dose: 200 mls/hr Admin: 07/23/18 02:12 Dose: 200 mls/hr Infusion: 07/22/18 20:26 Dose: 200 mls/hr Admin: 07/22/18 19:56 Dose: 200 mls/hr Infusion: 07/22/18 14:08 Dose: 0 mls/hr Admin: 07/22/18 13:00 Dose: 200 mls/hr Infusion: 07/22/18 06:54 Dose: 0 mls/hr Admin: 07/22/18 03:13 Dose: 200 mls/hr Infusion: 07/21/18 20:47 Dose: 200 mls/hr Admin: 07/21/18 20:17 Dose: 200 mls/hr Infusion: 07/21/18 12:51 Dose: 0 mls/hr Admin: 07/21/18 12:21 Dose: 200 mls/hr Infusion: 07/21/18 04:31 Dose: 0 mls/hr Admin: 07/21/18 04:01 Dose: 200 mls/hr Infusion: 07/20/18 18:20 Dose: 200 mls/hr Admin: 07/20/18 17:50 Dose: 200 mls/hr Infusion: 07/20/18 12:20 Dose: 0 mls/hr Admin: 07/20/18 11:50 Dose: 200 mls/hr Infusion: 07/20/18 06:40 Dose: 0 mls/hr Admin: 07/20/18 05:53 Dose: 200 mls/hr Infusion: 07/19/18 23:54 Dose: 0 mls/hr Admin: 07/19/18 22:53 Dose: 200 mls/hr Infusion: 07/19/18 16:45 Dose: 0 mls/hr Admin: 07/19/18 16:07 Dose: 200 mls/hr Infusion: 07/19/18 06:23 Dose: 0 mls/hr Admin: 07/19/18 05:41 Dose: 200 mls/hr Infusion: 07/18/18 21:54 Dose: 0 mls/hr Admin: 07/18/18 21:02 Dose: 200 mls/hr Metronidazole (Flagyl) 500 mg in 100 mls @ 100 mls/hr IV Q6H [facility] Last Admin: 07/27/18 12:41 Dose: 100 mls/hr Infusion: 07/27/18 10:38 Dose: 0 mls/hr Admin: 07/27/18 06:46 Dose: 100 mls/hr Infusion: 07/27/18 06:27 Dose: 0 mls/hr Admin: 07/27/18 01:25 Dose: 100 mls/hr Infusion: 07/26/18 20:10 Dose: 100 mls/hr Admin: 07/26/18 19:10 Dose: 100 mls/hr Infusion: 07/26/18 14:31 Dose: 0 mls/hr Admin: 07/26/18 12:56 Dose: 100 mls/hr Infusion: 07/26/18 10:36 Dose: 0 mls/hr Admin: 07/26/18 07:47 Dose: 100 mls/hr Infusion: 07/26/18 02:00 Dose: 0 mls/hr Admin: 07/26/18 00:57 Dose: 100 mls/hr Infusion: 07/25/18 20:30 Dose: 100 mls/hr Admin: 07/25/18 19:30 Dose: 100 mls/hr Infusion: 07/25/18 17:00 Dose: 100 mls/hr Infusion: 07/25/18 14:32 Dose: 0 mls/hr Admin: 07/25/18 13:18 Dose: 100 mls/hr Infusion: 07/25/18 08:07 Dose: 0 mls/hr Admin: 07/25/18 06:55 Dose: 100 mls/hr Infusion: 07/25/18 01:15 Dose: 0 mls/hr Admin: 07/25/18 00:14 Dose: 100 mls/hr Infusion: 07/24/18 20:38 Dose: 100 mls/hr Admin: 07/24/18 19:38 Dose: 100 mls/hr Infusion: 07/24/18 14:01 Dose: 0 mls/hr Admin: 07/24/18 13:44 Dose: 100 mls/hr Infusion: 07/24/18 08:53 Dose: 0 mls/hr Admin: 07/24/18 07:53 Dose: 100 mls/hr Infusion: 07/24/18 01:35 Dose: 0 mls/hr Admin: 07/24/18 00:35 Dose: 100 mls/hr Infusion: 07/23/18 17:56 Dose: 100 mls/hr Admin: 07/23/18 16:56 Dose: 100 mls/hr Sodium Chloride (Sodium Chloride 0.9%) 1,000 mls @ 50 mls/hr IV .Q20H [facility] Last Admin: 07/27/18 06:47 Dose: Not Given Admin: 07/26/18 13:56 Dose: 50 mls/hr Infusion: 07/26/18 13:56 Dose: 50 mls/hr Admin: 07/26/18 12:56 Dose: Not Given Admin: 07/25/18 14:36 Dose: 50 mls/hr Levothyroxine Sodium (Synthroid) 250 mcg PO QAMAC [facility] Last Admin: 07/27/18 06:46 Dose: 250 mcg Admin: 07/26/18 07:47 Dose: 250 mcg Admin: 07/25/18 08:04 Dose: 250 mcg Admin: 07/24/18 07:54 Dose: 250 mcg Admin: 07/23/18 08:26 Dose: 250 mcg Lorazepam (Ativan) 1 mg IV HSP PRN PRN Reason: Anxiety Last Admin: 07/24/18 19:47 Dose: 1 mg Admin: 07/22/18 00:21 Dose: 1 mg Magnesium Oxide (Magnesium Oxide) 400 mg PO TID [facility] Last Admin: 07/27/18 08:37 Dose: 400 mg Admin: 07/26/18 22:00 Dose: 400 mg Admin: 07/26/18 15:26 Dose: 400 mg Admin: 07/26/18 10:40 Dose: 400 mg Admin: 07/25/18 21:21 Dose: 400 mg Admin: 07/25/18 15:07 Dose: 400 mg Admin: 07/25/18 09:02 Dose: 400 mg Admin: 07/24/18 20:47 Dose: 400 mg Admin: 07/24/18 13:46 Dose: 400 mg Admin: 07/24/18 07:54 Dose: 400 mg Admin: 07/23/18 21:05 Dose: 400 mg Admin: 07/23/18 16:56 Dose: 400 mg Admin: 07/23/18 08:26 Dose: 400 mg Admin: 07/22/18 20:09 Dose: 400 mg Admin: 07/22/18 15:07 Dose: 400 mg Pantoprazole Sodium (Protonix) 40 mg IV BIDAC [facility] Last Admin: 07/27/18 06:46 Dose: 40 mg Admin: 07/26/18 17:14 Dose: 40 mg Admin: 07/26/18 07:47 Dose: 40 mg Admin: 07/25/18 16:32 Dose: 40 mg Admin: 07/25/18 08:04 Dose: 40 mg Admin: 07/24/18 17:39 Dose: 40 mg Admin: 07/24/18 07:53 Dose: 40 mg Admin: 07/23/18 16:56 Dose: 40 mg Admin: 07/23/18 08:25 Dose: 40 mg Admin: 07/22/18 16:15 Dose: 40 mg Admin: 07/22/18 08:32 Dose: 40 mg Admin: 07/21/18 18:09 Dose: 40 mg Admin: 07/21/18 07:01 Dose: 40 mg Admin: 07/20/18 16:53 Dose: 40 mg Admin: 07/20/18 08:03 Dose: 40 mg Admin: 07/19/18 17:30 Dose: 40 mg Admin: 07/19/18 07:19 Dose: 40 mg Admin: 07/18/18 17:44 Dose: 40 mg Polyethylene Glycol (Miralax) 17 gm PO TID [facility] Last Admin: 07/27/18 08:36 Dose: 17 gm Admin: 07/26/18 22:01 Dose: 17 gm Admin: 07/26/18 15:26 Dose: 17 gm Admin: 07/26/18 10:40 Dose: 17 gm Admin: 07/25/18 21:21 Dose: 17 gm Admin: 07/25/18 15:07 Dose: 17 gm Admin: 07/25/18 09:02 Dose: 17 gm Admin: 07/24/18 20:46 Dose: 17 gm Admin: 07/24/18 13:46 Dose: 17 gm Admin: 07/24/18 07:55 Dose: 17 gm Admin: 07/23/18 21:04 Dose: 17 gm [facility] Admin: 07/27/18 08:36 Dose: 20 mg Admin: 07/26/18 10:40 Dose: 20 mg Admin: 07/25/18 08:04 Dose: 20 mg Admin: 07/24/18 07:54 Dose: 20 mg Admin: 07/23/18 08:26 Dose: 20 mg Promethazine HCl (Phenergan) 12.5 mg IV Q4HP PRN PRN Reason: Nausea And Vomiting Last Admin: 07/26/18 18:03 Dose: 12.5 mg Admin: 07/26/18 13:48 Dose: 12.5 mg Sodium Chloride (Saline Flush) 10 ml IV UD PRN PRN Reason: FLUSH Last Admin: 07/25/18 04:20 Dose: 10 ml Sodium Chloride (Saline Flush) 10 ml IV Q12 [facility] Last Admin: 07/27/18 08:38 Dose: 10 ml Admin: 07/26/18 22:01 Dose: 10 ml Admin: 07/26/18 10:41 Dose: 10 ml Shift Summary 07/27/18 04:23 Shift Summary by Chacha Eaton No complaints of nausea for this shift. Medicated every 3 hours with fentanyl for pain, Ofirmev x1. Colostomy putting out good amounts of stool and flatus. Up ad rainer to bedside commode, SBA when into BR. MIV at 50mls/hr to PORT in left chest. Quad lumen central line to right IJ, all ports flush with good blood return. Calm and cooperative with care. Poss d/c home today. Initialized on 07/27/18 04:23 - END OF NOTE
[2018-07-27] MEDS ORDERED: HEPARIN SODIUM,PORCINE/PF 500 UNIT/5 ML SYRINGE IV ONE ×2 (14:46→16:23)
[2018-07-27] MEDS ORDERED: HEPARIN 5,000 UNIT/ML VIAL ONE (16:23)
== END 2018-07-27 16:45 | disposition home or self-care (01) | DRG 336 ==
LOC: ED → ICU 03:03 → MEDSUR 14:38
PROVIDERS: ADMIT Family Medicine Adult Medicine; ATTEND Family Medicine Adult Medicine

== ENCOUNTER 2018-10-08 16:04 | Inpatient (IN) ==
--- NOTE | 2018-10-08 16:41 | Emergency Department Note ---
Abdominal Pain HPI - General Chief Complaint: Abdominal Pain Stated Complaint: Abd pain Time Seen by Provider: 10/08/18 16:26 Source: patient Mode of arrival: wheelchair Limitations: no limitations - History of Present Illness HPI Narrative: Patient is brought in secondary to abdominal pain and swelling she states that she had a PREETI drain that was no longer draining anything and she pulled it out on Clarence rosalie, prior to that it was not draining for about 4 days of. She still has one PREETI drain in place and this is now draining more. It a normal meal yesterday, is complaining of abdominal bloating and pain since yesterday afternoon, worse today. Also history of emesis today. Decreased output from her colostomy bag since yesterday. She is a colostomy present in the left lower quadrant the abdomen, recent abdominal exploration, lysis of adhesions in August of this year. No fevers or chills reported, no chest pain no shortness of breath no cough, she has a history of myasthenic gravis, is on prednisone 20 mg a day has been on that for years. MD Complaint: abdominal pain - Related Data Home Medications Medication Instructions Recorded Confirmed DULoxetine [Cymbalta] 30 mg PO BID 11/30/16 10/08/18 Levothyroxine [Synthroid] 250 mcg PO QAMAC 08/20/17 10/08/18 Acetaminophen W/Codeine #3 2 cap PO Q4-6HP PRN 09/18/17 10/08/18 [Tylenol #3] Naproxen (Pp) [Aleve 220Mg (Pp)] 2 tab PO BID PRN 09/18/17 10/08/18 Polyethylene Glycol 3350 [Miralax] 17 gm PO BID 09/18/17 10/08/18 calcitriol 0.25 mcg capsule 0.5 mcg PO TID cap 11/05/17 10/08/18 nitroglycerin 0.4 mg sublingual 0.4 mg SUBLINGUAL Q5M PRN 11/05/17 10/08/18 tablet Previous Rx's Medication Instructions Recorded predniSONE [Prednisone] 20 mg PO QAMCC #4 tab 05/18/16 Lisinopril [Zestril] 20 mg PO BID #60 tab 12/06/17 Promethazine [Phenergan] 25 mg [place] Q4HP PRN #30 supp.rect 01/08/18 Calcium Carbonate 1,250 mg PO BID #350 oral.susp 07/12/18 Magnesium Oxide 400 mg PO TID #90 tab 07/12/18 Vitamin D3 800 unit PO DAILY #0 tab 07/12/18 Erythromycin Base [Erythromycin] 250 mg PO Q6H #100 capsule. 08/18/18 meperidine 50 mg tablet 50 mg PO Q6H PRN #90 tab 08/22/18 Allergies Allergy/AdvReac Type Severity Reaction Status Date / Time Sulfa (Sulfonamide Allergy Severe Anaphylaxis Verified 10/08/18 16:13 Antibiotics) adhesive tape AdvReac Mild Blister Verified 10/08/18 16:13 metoclopramide [From Reglan] AdvReac Mild Anxiety Verified 10/08/18 16:13 steri strips Allergy Severe Blister Uncoded 09/16/18 10:07 Review of Systems All systems ED: reviewed and negative except as stated. Constitutional: Denies: fever, chills Cardiovascular: Denies: chest pain Respiratory: Denies: shortness of breath Gastrointestinal: Reports: abdominal pain, nausea, vomiting, constipation. Denies: diarrhea Genitourinary: Denies: dysuria Musculoskeletal: Denies: back pain Abdominal Pain PMH - Past Medical History Attestation: Yes: The following information was validated with the patient. Medical history: Reports: COPD, hypertension, hypothyroidism, other (Connective tissue diseases: Sjogren's, sarcoidosis, myasthenia gravis. Achalasia. Small bowel obstructions. 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 SVT. Chronic prednisone.). Denies: cancer, CVA, DM, myocardial infarction Surgical history ED: Reports: colostomy, other (status post abdominal exploration, lysis of adhesions) Psychiatric history: Reports: anxiety, depression [employer] history: Reports: non-contributory Family history: Reports: other (2 aunts with double mastectomy for cancer. Uncle with brain cancer. Mother with diabetes. Both parents of myocardial infarctions in their 50s.) - Social History Smoking status: Never smoker Alcohol use: Reports: None Drug use: Reports: none. Denies: marijuana Physical Exam Limitations: no limitations General appearance: alert, in distress Head: atraumatic, normocephalic Eye: Present: normal appearance, PERRL, EOMI, other (mild degree of exophthalmus ) ENT: normal exam, normal oropharynx, mucous membranes moist Neck: Present: normal inspection, full ROM, trachea midline. Absent: tenderness Chest: Present: normal inspection, symmetric chest wall rise. Absent: tenderness Respiratory: Present: normal lung sounds bilaterally. Absent: wheezes Cardiovascular: Present: regular rate, normal rhythm, normal heart sounds Abdominal: Present: soft, distention, tenderness, guarding, hypoactive bowel sounds. Absent: rebound Abdominal tenderness: Present: LLQ, moderate Extremities: Present: normal inspection, full ROM Back: Present: full ROM, CVA tenderness (R) Neurological: Present: alert, oriented X3, CN II-XII intact Psychiatric: Present: depressed Skin: Present: warm, dry, intact, diaphoresis. Absent: pallor Course - Reevaluation(s) Reevaluation #1: Spoke with general surgery who was here in the department evaluating the patient for admission. We ended up putting an NG tube down, also giving contrast through the NG tube, further care is per general surgery. Vital Signs Temperature 99.0 F 10/08/18 16:10 Pulse Rate 128 H 10/08/18 16:10 Respiratory Rate 16 10/08/18 16:10 Blood Pressure 174/118 10/08/18 16:10 Pulse Oximetry (%) 96 10/08/18 16:10 Temperature 99.0 F 10/08/18 16:10 Pulse Rate 109 H 10/08/18 22:12 Respiratory Rate 16 10/08/18 22:02 Blood Pressure 180/96 10/08/18 22:02 Pulse Oximetry (%) 94 10/08/18 22:12 Abdominal Pain - MDM Narrative Medical decision making narrative: X-rays consistent with small bowel obstruction, high-grade slightly elevated white count. General surgery was paged, patient well-hydrated, CT scan of the abdomen ordered. - Lab Data Result diagrams: 10/08/18 17:16 10/08/18 17:16 Lab Results 10/08/18 10/08/18 10/08/18 Range/Units 17:16 17:16 17:16 WBC 14.3 H (4.5-11.0) K/mcL RBC 4.30 (4.00-5.20) M/mcL Hgb 11.0 L (12.0-15.0) g/dL Hct 34.2 L (36.0-48.0) % MCV 79.7 L (80.0-100.0) fL MCH 25.5 L (26.0-34.0) pg MCHC 32.1 (31.0-36.0) g/dL RDW 15.7 H (11.5-14.5) % Plt Count 458 H (140-440) K/mcL MPV 7.7 (7.4-10.4) fL Gran % 73.5 (38.0-78.0) % Lymph % (Auto) 16.9 (15.5-49.0) % Cassia % (Auto) 7.3 (1.0-12.0) % Eos % (Auto) 2.0 (0.0-7.0) % Baso % (Auto) 0.3 (0.0-2.0) % Gran # 10.5 H (1.8-8.0) K/mcL Lymph # (Auto) 2.4 (1.5-4.8) K/mcL Cassia # (Auto) 1.0 H (0.1-0.9) K/mcL Eos # (Auto) 0.3 (0.0-0.7) K/mcL Baso # (Auto) 0 (0.0-0.3) K/mcL VBG Lactic Acid 2.4 H (0.5-2.0) mmol/L Sodium 139 (133-145) mmol/L Potassium 3.8 (3.3-5.1) mmol/L Chloride 95 L (96-108) mmol/L Carbon Dioxide 27 (22-30) mmol/L Anion Gap 17.0 H (8-16) BUN 17 (6-20) mg/dl Creatinine 0.9 (0.6-1.1) mg/dl GFR Calculation 71 Glucose 272 H (70-105) mg/dL Calcium 10.0 (8.6-10.4) mg/dl Total Bilirubin 0.3 (0.0-1.0) mg/dL AST 8 (0-37) U/l ALT 11 (0-40) U/l Alkaline Phosphatase 94 (39-117) U/L Total Protein 7.2 (5.9-8.4) gm/dL Albumin 3.7 (3.2-5.2) gm/dL Globulin 3.5 (2.2-3.7) gm/dL Albumin/Globulin Ratio 1.1 (1.0-2.3) Lipase 12 (7-60) U/L 10/08/18 Range/Units 19:45 WBC (4.5-11.0) K/mcL RBC (4.00-5.20) M/mcL Hgb (12.0-15.0) g/dL Hct (36.0-48.0) % MCV (80.0-100.0) fL MCH (26.0-34.0) pg MCHC (31.0-36.0) g/dL RDW (11.5-14.5) % Plt Count (140-440) K/mcL MPV (7.4-10.4) fL Gran % (38.0-78.0) % Lymph % (Auto) (15.5-49.0) % Cassia % (Auto) (1.0-12.0) % Eos % (Auto) (0.0-7.0) % Baso % (Auto) (0.0-2.0) % Gran # (1.8-8.0) K/mcL Lymph # (Auto) (1.5-4.8) K/mcL Cassia # (Auto) (0.1-0.9) K/mcL Eos # (Auto) (0.0-0.7) K/mcL Baso # (Auto) (0.0-0.3) K/mcL VBG Lactic Acid 1.3 (0.5-2.0) mmol/L Sodium (133-145) mmol/L Potassium (3.3-5.1) mmol/L Chloride (96-108) mmol/L Carbon Dioxide (22-30) mmol/L Anion Gap (8-16) BUN (6-20) mg/dl Creatinine (0.6-1.1) mg/dl GFR Calculation Glucose (70-105) mg/dL Calcium (8.6-10.4) mg/dl Total Bilirubin (0.0-1.0) mg/dL AST (0-37) U/l ALT (0-40) U/l Alkaline Phosphatase (39-117) U/L Total Protein (5.9-8.4) gm/dL Albumin (3.2-5.2) gm/dL Globulin (2.2-3.7) gm/dL Albumin/Globulin Ratio (1.0-2.3) Lipase (7-60) U/L Disposition Pt seen by H[employer] TENDER/PA only: No Clinical Impression: Small bowel obstruction due to adhesions Disposition: Xfer As Inpt ([facility]) Condition: Fair Referrals: Douglas Haque MD [Primary Care Provider] -
[2018-10-08] MEDS ORDERED: PROMETHAZINE 25 MG/ML VIAL IV ONE ×2 (16:52→19:21)
[2018-10-08] MEDS ORDERED: diphenhydrAMINE 50 MG/ML VIAL IV ONE (16:52)
[2018-10-08] MEDS ORDERED: PANTOPRAZOLE 40 MG VIAL IV ONE (16:52)
[2018-10-08] MEDS ORDERED: LACTATED RINGERS 1,000 ML IV ONE ×3 (16:52→22:28)
[2018-10-08] MEDS: HYDROmorphone 2 MG/ML VIAL IV PRN ×3 (17:24→21:52)
[2018-10-08 18:06] LABS: Basophils # (Auto) 0 K/mcL (0.0-0.3); Basophils % (Auto) 0.3 % (0.0-2.0); Eosinophils # (Auto) 0.3 K/mcL (0.0-0.7); Granulocytes % (Auto) 73.5 % (38.0-78.0); Lymphocytes # (Auto) 2.4 K/mcL (1.5-4.8); Lymphocytes % (Auto) 16.9 % (15.5-49.0); Mean Cell Volume 79.7 fL (80.0-100.0); Mean Corpuscular HGB Conc 32.1 g/dL (31.0-36.0); Monocytes % (Auto) 7.3 % (1.0-12.0); Platelet Count 458 K/mcL (140-440); Red Cell Distribution Width 15.7 % (11.5-14.5)
--- NOTE | 2018-10-08 18:12 | XRay Report ---
CLINICAL INFORMATION: vomiting COMPARISON: 08/27/2018 FINDINGS: Stomach duodenum and multiple loops of jejunum are moderately dilated and contain air-fluid levels. The distal small bowel colon are decompressed. Colostomy left lower quadrant noted. No free air. IMPRESSION: Recurrent distal small bowel obstruction - high-grade Interpreted and Authenticated by: All Lundberg 10/08/18
[2018-10-08 18:23] LABS: ALT/SGPT 11 U/l (0-40); Albumin 3.7 gm/dL (3.2-5.2); Albumin/Globulin Ratio 1.1 (1.0-2.3); Alkaline Phosphatase 94 U/L (39-117); Blood Urea Nitrogen 17 mg/dl (6-20); Lipase 12 U/L (7-60)
[2018-10-08] MEDS ORDERED: LACTATED RINGERS 1,000 ML IV SCH ×4 (19:15→22:47)
--- NOTE | 2018-10-08 20:28 | General Surg History&Physical ---
History of Present Illness Patient information: Note initiated : 10/08/18 at 8:26 pm Service Date, if different from initiated Date: [] Patient: Dayanna Stephens a 57 y/o F admitted on for Abd pain. Chief Complaint: [] Chief complaint: Nausea & vomiting small bowel obstruction HPI: Ms. 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 She was previously admitted 07/31 for obstruction due to parastomal hernia with adhesiolysis and ostomy revision. 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 and felt that she had a small bowel obstruction so she came in for evaluation since her stoma stopped working yesterday. reports pulling out one of her PREETI drains kee wiggins. Denied F/C/NS. Last meal yesterday Review of Systems - Constitutional as per HPI, no chills, no fever(s) - EENT Nose, mouth and throat: dry mouth - Cardiovascular no chest pain - Respiratory no cough, no hemoptysis, no wheezing - Gastrointestinal abdominal pain, belching, bloating, constipation, nausea, vomiting - Genitourinary Genitourinary: no dysuria - Integumentary no rash - Neurological as per HPI - Psychiatric as per HPI - Endocrine as per HPI Past History Past medical history: Foot sprain (Acute) Anaphylaxis (Acute) Adverse reaction to drug (Acute) Severe sepsis (Acute) Pyelonephritis (Acute) Pneumonia (Acute) Myasthenia gravis (Acute) Polyglandular autoimmune syndrome (Chronic) Sarcoidosis (Acute) Achalasia and cardiospasm (Acute) Hypothyroidism (Acute) UTI (urinary tract infection) (Acute) Infiltrate of lung present on imaging of chest (Acute) Past surgical history: Hx of multiple abdominal surgeries- ex lap parastomal hernia surgeries, sigmoid resection with stoma Past family history: Family History (Last Reviewed 10/01/18 @ 11:22 by Bertha Currie MD) Father CAD (coronary artery disease) Mother CAD (coronary artery disease) Grandfather CVA (cerebral vascular accident) Grandmother CVA (cerebral vascular accident) Past social history: Social History Never smoker Medications and Allergies Home Medications Medication Instructions Recorded Confirmed Type predniSONE [Prednisone] 20 mg PO QAMCC #4 tab 05/18/16 10/08/18 Rx DULoxetine [Cymbalta] 30 mg PO BID 11/30/16 10/08/18 History Levothyroxine [Synthroid] 250 mcg PO QAMAC 08/20/17 10/08/18 History Acetaminophen W/Codeine #3 2 cap PO Q4-6HP PRN 09/18/17 10/08/18 History [Tylenol #3] Naproxen (Pp) [Aleve 220Mg (Pp)] 2 tab PO BID PRN 09/18/17 10/08/18 History Polyethylene Glycol 3350 [Miralax] 17 gm PO BID 09/18/17 10/08/18 History calcitriol 0.25 mcg capsule 0.5 mcg PO TID cap 11/05/17 10/08/18 History nitroglycerin 0.4 mg sublingual 0.4 mg SUBLINGUAL Q5M PRN 11/05/17 10/08/18 History tablet Lisinopril [Zestril] 20 mg PO BID #60 tab 12/06/17 10/08/18 Rx Promethazine [Phenergan] 25 mg [place] Q4HP PRN #30 supp.rect 01/08/18 10/08/18 Rx Calcium Carbonate 1,250 mg PO BID #350 oral.susp 07/12/18 10/08/18 Rx Magnesium Oxide 400 mg PO TID #90 tab 07/12/18 10/08/18 Rx Vitamin D3 800 unit PO DAILY #0 tab 07/12/18 10/08/18 Rx Erythromycin Base [Erythromycin] 250 mg PO Q6H #100 capsule.dr 08/18/18 Rx meperidine 50 mg tablet 50 mg PO Q6H PRN #90 tab 08/22/18 10/08/18 Rx Allergies Allergy/AdvReac Type Severity Reaction Status Date / Time Sulfa (Sulfonamide Allergy Severe Anaphylaxis Verified 10/08/18 16:13 Antibiotics) adhesive tape AdvReac Mild Blister Verified 10/08/18 16:13 metoclopramide [From Reglan] AdvReac Mild Anxiety Verified 10/08/18 16:13 steri strips Allergy Severe Blister Uncoded 09/16/18 10:07 Exam Temp Pulse Resp BP Pulse Ox 99.0 F 102 H 16 177/112 97 10/08/18 16:10 10/08/18 19:24 10/08/18 16:10 10/08/18 19:17 10/08/18 19:24 - General physical appearance no distress - Head Head exam IM: Present: atraumatic, normal inspection - Cardiovascular Cardiovascular exam IM: Present: tachycardia - Respiratory clear to auscultation - Abdomen Abdomen: Present: soft (Morbidly obese, Mild TTP, No rebound or guarding, Ostomy pink with large amount of hard claylike stool.) - Genitourinary Present: normal external genitalia - Integumentary Present: no rash - Neurologic Present: normal sensation Assessment and Plan (1) Small bowel obstruction 57yo female with multiple medical problems with small bowel obstruction likely due to fecal impaction CT scan pending Admit to surgical service NG tube NPO IV fluids ostomy enemas Medical consult appreciated. will review home medications and convert as needed. Status: Acute (2) Fecal impaction Status: Acute
[2018-10-08] MEDS ORDERED: hydrALAZINE 20 MG/ML VIAL IV ONE (20:44)
[2018-10-08] MEDS ORDERED: hydrALAZINE 20 MG/ML VIAL IV PRN ×2 (20:57→22:47)
[2018-10-08] MEDS ORDERED: ENALAPRILAT 1.25 MG/ML VIAL IV ONE (21:00)
[2018-10-08] MEDS ORDERED: HYDROmorphone 2 MG/ML VIAL IV PRN ×2 (21:23→22:47)
[2018-10-08] MEDS ORDERED: 0.9 % SODIUM CHLORIDE 10 ML SYRINGE IV SCH (22:00)
[2018-10-08] MEDS ORDERED: DEXTROSE 50% 50 ML VIAL IV PRN (22:47)
[2018-10-08] MEDS ORDERED: PROMETHAZINE 25 MG/ML VIAL IV PRN (22:47)
[2018-10-08] MEDS ORDERED: ENOXAPARIN 40 MG/0.4 ML SYRINGE SQ SCH ×2 (23:00)
[2018-10-08] MEDS ORDERED: INSULIN REGULAR, HUMAN 1 UNIT/0.01 ML UNIT SQ ONE (23:20)
[2018-10-09] MEDS ORDERED: INSULIN LISPRO 1 UNIT/0.01 ML UNIT SQ SCH
[2018-10-09] MEDS: MINERAL OIL 1 DOSE ENEMA PR SCH ×2 (00:19→06:58)
[2018-10-09 01:05] LABS: Appearance,Urine CLEAR; Bilirubin,Urine NEG (NEG); Color,Urine YELLOW; Glucose,Urine (UA) 150 mg/dL (NEG); Leukocyte Esterase,Urine NEG /uL (NEG); Protein,Urine NEG (NEG); Specific Gravity,Urine 1.031 (1.000-1.035); Urine Blood NEG mg/dL (<0.03); Urobilinogen,Urine NEG (NEG)
--- NOTE | 2018-10-09 03:50 | XRay Report ---
CLINICAL INFORMATION: NG tube placement COMPARISON: 10/08/2018 FINDINGS: NG tube tip overlies the gastric fundus. The stomach duodenum and jejunum are markedly dilated compatible with high-grade mid small bowel obstruction. No free air. IMPRESSION: 1. NG tube overlying the gastric fundus 2. High-grade mid small bowel obstruction Interpreted and Authenticated by: All Lundberg 10/09/18
[2018-10-09] MEDS ORDERED: LACTATED RINGERS 1,000 ML IV ONE ×2 (04:29→04:48)
[2018-10-09] MEDS ORDERED: HYDROmorphone 2 MG/ML VIAL IV PRN (04:32)
[2018-10-09] MEDS ORDERED: HYDROCORTISONE SOD SUCC 100 MG VIAL IV SCH (04:33)
[2018-10-09] MEDS ORDERED: DEXTROSE 50% 50 ML VIAL IV PRN (04:48)
[2018-10-09] MEDS ORDERED: PROMETHAZINE 25 MG/ML VIAL IV PRN (04:48)
[2018-10-09] MEDS ORDERED: VANCOMYCIN PER PHARMACY IV ONE (04:49)
[2018-10-09] MEDS ORDERED: VANCOMYCIN 1,500 MG in 0.9 % SODIUM CHLORIDE 500 ML IV ONE (04:49)
[2018-10-09] MEDS ORDERED: HYDROCORTISONE SOD SUCC 100 MG VIAL IV ONE (04:58)
[2018-10-09] MEDS: HYDROCORTISONE SOD SUCC 100 MG VIAL IV SCH ×3 (05:00→22:16)
[2018-10-09] MEDS ORDERED: HYDROmorphone 2 MG/ML VIAL ONE (05:01)
[2018-10-09] MEDS ORDERED: hydrALAZINE 20 MG/ML VIAL ONE (05:13)
--- NOTE | 2018-10-09 05:14 | Internal Medicine Consult Note ---
Medical - CN: HPI - Data of Consult Requesting Physician: Gus Goodman DO Primary Care Provider: Douglas Haque Family Provider: Douglas Haque - Consult Narrative Reason for consult: Medical management, History of present illness: Ms. Stephens is a 57 year old F with h/o recurrent bowel obstruction, multiple bowel surgeries presents to the hospital today for evaluation of abdominal pain. The patient had a last bowel surgery at the end of July, was seen by Dr. Currie she was doing well on oral laxative regimen. She had [address] after surgery that was still draining. On she noted that the drain on the right side stopped draining and she took it out. Left-sided drain is still in place. Since yesterday the patient has been complaining about abdominal pain not feeling well nausea vomiting and decreased output through the stoma. She therefore came to the emergency room for further management. The patient was evaluated by general surgery and admitted to the service. Medicine has been consulted for management of chronic medical issues. The patient has a history of morbid obesity, myasthenia gravis diabetes, hypoparathyroidism, hypocalcemia, polyglandular disease. The patient is on chronic high-dose steroids 20 mg of prednisone daily. After being admitted to the hospital the patient was given some enemas last night, around 3:30 AM it was noted that the patient was not feeling well, she was feeling more weak than before, dizzy had some headache and a heart rate was elevated in the 140s-150s. At baseline in the past the patient's heart rate has always been elevated. The patient was moved to telemetry, chest x-ray ordered labs blood culture ordered. There was a low-grade temperature 99.3 noted. ABG shows pH of 7.48 PCO2 45 PO2 72 on 2 L of oxygen lactic acid was 1.5. Chest x-ray is pending CT abdomen and pelvis done last night reviewed showed possible abscess in the anterior abdominal wall. I tried to aspirate a sample of the abscess using a 1.5 inch 18-gauge needle with ultrasound guidance however I believe that was not able to reach the abscess. CC: Gus Goodman DO - Constitutional Constitutional: Present: fatigue, fever(s), headache(s), night sweats, weakness - EENT Nose, mouth and throat: Present: headache(s). Absent: throat swelling, tongue swelling - Cardiovascular Cardiovascular: Present: diaphoresis, palpatations, rapid heart rate. Absent: chest pain - Respiratory Respiratory: Absent: cough, wheezing - Gastrointestinal Gastrointestinal: Present: abdominal pain, nausea. Absent: diarrhea - Genitourinary Genitourinary: Absent: difficulty urinating, difficulty voiding, hematuria - Musculoskeletal Musculoskeletal: Absent: joint swelling - Integumentary Integumentary: Absent: jaundice - Neurological Neurological: Present: dizziness, headache(s). Absent: syncope, weakness - Psychiatric Psychiatric: Absent: paranoia, visual hallucinations - Endocrine Endocrine: Absent: polydipsia, polyphagia, polyuria - Hematologic/Lymphatic Hematologic/Lymphatic: Absent: easy bleeding, easy bruising Medical - CN: PMH Medical history: Medical History (Last Reviewed 10/01/18 @ 11:22 by Bertha Currie MD) Foot sprain (Acute) Anaphylaxis (Acute) Adverse reaction to drug (Acute) Severe sepsis (Acute) Pyelonephritis (Acute) Pneumonia (Acute) Myasthenia gravis (Acute) Polyglandular autoimmune syndrome (Chronic) Sarcoidosis (Acute) Achalasia and cardiospasm (Acute) Hypothyroidism (Acute) UTI (urinary tract infection) (Acute) Infiltrate of lung present on imaging of chest (Acute) Surgical history: Past Surgical History (Last Reviewed 10/01/18 @ 11:22 by Bertha Currie MD) History of exploratory laparotomy (Acute) History of exploratory laparotomy (Acute) History of exploratory laparotomy (Acute) History of exploratory laparotomy (Acute) Family history: reviewed and not pertinent Medical - CN: Meds Home Medications Medication Instructions Recorded Confirmed Type predniSONE [Prednisone] 20 mg PO [facility] #4 tab 05/18/16 10/08/18 Rx DULoxetine [Cymbalta] 30 mg PO BID 11/30/16 10/08/18 History Levothyroxine [Synthroid] 250 mcg PO QAMAC 08/20/17 10/08/18 History Acetaminophen W/Codeine #3 2 cap PO Q4-6HP PRN 09/18/17 10/08/18 History [Tylenol #3] Naproxen (Pp) [Aleve 220Mg (Pp)] 2 tab PO BID PRN 09/18/17 10/08/18 History Polyethylene Glycol 3350 [Miralax] 17 gm PO BID 09/18/17 10/08/18 History calcitriol 0.25 mcg capsule 0.5 mcg PO TID cap 11/05/17 10/08/18 History nitroglycerin 0.4 mg sublingual 0.4 mg SUBLINGUAL Q5M PRN 11/05/17 10/08/18 History tablet Lisinopril [Zestril] 20 mg PO BID #60 tab 12/06/17 10/08/18 Rx Promethazine [Phenergan] 25 mg [place] Q4HP PRN #30 supp.rect 01/08/18 10/08/18 Rx Calcium Carbonate 1,250 mg PO BID #350 oral.susp 07/12/18 10/08/18 Rx Magnesium Oxide 400 mg PO TID #90 tab 07/12/18 10/08/18 Rx Vitamin D3 800 unit PO DAILY #0 tab 07/12/18 10/08/18 Rx Erythromycin Base [Erythromycin] 250 mg PO Q6H #100 capsule.dr 08/18/18 Rx meperidine 50 mg tablet 50 mg PO Q6H PRN #90 tab 08/22/18 10/08/18 Rx Allergies Allergy/AdvReac Type Severity Reaction Status Date / Time Sulfa (Sulfonamide Allergy Severe Anaphylaxis Verified 10/08/18 16:13 Antibiotics) adhesive tape AdvReac Mild Blister Verified 10/08/18 16:13 metoclopramide [From Reglan] AdvReac Mild Anxiety Verified 10/08/18 16:13 steri strips Allergy Severe Blister Uncoded 09/16/18 10:07 Medical - CN: Exam - Constitutional Vitals: Temp Pulse Resp BP Pulse Ox 99.3 F H 143 H 22 143/81 94 10/09/18 04:10 10/09/18 04:10 10/09/18 04:10 10/09/18 04:10 10/09/18 04:10 Exam: GENERAL: The patient is a well-developed, well-nourished in no apparent distress. Is alert and oriented x3. VITAL SIGNS: Reviewed and as noted elsewhere. HEENT: Head is normocephalic and atraumatic. Extraocular muscles are intact. Pupils are equal, round, and reactive to light. Nares appeared normal. Mouth appears any without lesions. Mucous membranes are dry NECK: Normal to inspection, Supple, No lymphadenopathy or thyromegaly. LUNGS: Air entry equal on both sides, no wheezing, crackles or rhonchi noted. No accessory muscles of respiration HEART: Regular rate and rhythm normal, S1 and S2 heard, no Gallop, S3 or Rub Noted, No Gross murmur heard. ABDOMEN: Soft, obese abdomen, Stoma not draining any stools(despite enema), tender to palpate generalized, no guarding or rigidity. Hypoactive bowel tones. EXTREMITIES: No cyanosis, clubbing, rash, lesions or edema. NEUROLOGIC: Cranial nerves II through XII are grossly intact. Motor and Sensory System Grossly Intact PSYCHIATRIC: Normal affect, Normal Mood. Appropriate Behavior. SKIN: No ulceration or wounds noted, No jaundice, No rash noted. Medical - CN: Result - Labs CBC & Chem 7: 10/08/18 17:16 10/08/18 17:16 Labs: Short CBC 10/08/18 Range/Units 17:16 WBC 14.3 H (4.5-11.0) K/mcL Hgb 11.0 L (12.0-15.0) g/dL Hct 34.2 L (36.0-48.0) % Plt Count 458 H (140-440) K/mcL BMP 10/08/18 17:16 Sodium 139 Potassium 3.8 Chloride 95 L Carbon Dioxide 27 BUN 17 Creatinine 0.9 Glucose 272 H Calcium 10.0 Liver Function 10/08/18 Range/Units 17:16 Total Bilirubin 0.3 (0.0-1.0) mg/dL AST 8 (0-37) U/l ALT 11 (0-40) U/l Alkaline Phosphatase 94 (39-117) U/L Albumin 3.7 (3.2-5.2) gm/dL Urine 10/09/18 Range/Units 00:15 Urine Color Yellow Urine Appearance Clear Urine pH 6.0 (5.0-9.0) Ur Specific [place] 1.031 (1.000-1.035) Urine Protein Neg (NEG) mg/dL Urine Glucose (UA) 150 A (NEG) mg/dL Medical - CN: A/P - Narrative A/P Narrative: A/P Bowel obstruction- NG in place, Management per surgery. Pt had developed low grade temp, and was a bit diaphoretic. Blood culture ordered and pt started on Vancomycin and zosyn. Ant Abdominal wall abcess- Noted on CT, Will see if surgery plans to drain this , or at least try and ge a fluid sample. Weakness/TAcycardia/Dizziness- Change in status due to pain? infection? In the past admissions, the patient has had elevated heart rate in the 120-130 often, which used to improve with treatment of the underlying bowel condition. IV fluids for now. pain management. DM - SSI for glucose management Myasthenia Gravis- On po prednisone 20mg daily, NPO status for now, given her acuity of condition, start on stress dose of steroids, 100q8 of hydrocortisone for now Hypocalcemia-Due to hypoparathyroidsim/polyglandular syndrome, Was supposed to be on calcium supplements nad calcitriol, calcium is ok on admit, but anticipate that it will drop as pt remains NPO. Hypertension- BP elevated due to pain/ acute condition, treat underlying condition, if BP goes up too high, will give some hydralazine to help. DVT enoxaparin NPO status. Social History - Tobacco smoking status: Former smoker
[2018-10-09] MEDS: hydrALAZINE 20 MG/ML VIAL IV PRN ×2 (05:16→09:48)
[2018-10-09] MEDS: PIPERACILLIN SODIUM/TAZOBACTAM 3.375 GM in DEXTROSE 5% IN WATER 50 ML IV SCH ×3 (05:36→17:58)
[2018-10-09] MEDS ORDERED: INSULIN LISPRO 1 UNIT/0.01 ML UNIT SQ ONE (05:46)
[2018-10-09 05:52] LABS: Basophils # (Auto) 0 K/mcL (0.0-0.3); Basophils % (Auto) 0.2 % (0.0-2.0); Eosinophils # (Auto) 0.1 K/mcL (0.0-0.7); Eosinophils % (Auto) 0.9 % (0.0-7.0); Granulocytes % (Auto) 82.5 % (38.0-78.0); Lymphocytes # (Auto) 1.6 K/mcL (1.5-4.8); Lymphocytes % (Auto) 10.5 % (15.5-49.0); Mean Cell Volume 80.5 fL (80.0-100.0); Mean Corpuscular HGB Conc 32.6 g/dL (31.0-36.0); Monocytes # (Auto) 0.9 K/mcL (0.1-0.9); Monocytes % (Auto) 5.9 % (1.0-12.0); Platelet Count 414 K/mcL (140-440); RBC 3.83 M/mcL (4.00-5.20); Red Cell Distribution Width 15.6 % (11.5-14.5)
--- NOTE | 2018-10-09 05:55 | XRay Report ---
CLINICAL INFORMATION: shortness of breath COMPARISON: 08/27/2018 FINDINGS: Sternotomy changes again noted. Left subclavian Port-A-Cath is stable satisfactory position. NG tube tip overlies the gastric body. Cardiomediastinal silhouette is accentuated by suboptimal inspiratory result lordotic positioning and right rotation within normal limits. Pulmonary vessels are normal. The lungs are clear. No effusions. IMPRESSION: Negative - suboptimal inspiratory result Interpreted and Authenticated by: All Lundberg 10/09/18
[2018-10-09] MEDS ORDERED: 0.9 % SODIUM CHLORIDE 10 ML SYRINGE IV SCH (06:00)
[2018-10-09 06:20] LABS: Estimated Average Glucose(eAG) 192 mg/dL; Hemoglobin A1C 8.3 % HGB (4.0-6.0)
[2018-10-09] MEDS: LACTATED RINGERS 1,000 ML IV SCH ×2 (06:31→14:07)
[2018-10-09] MEDS: 0.9 % SODIUM CHLORIDE 10 ML SYRINGE IV SCH ×3 (06:34→21:21)
[2018-10-09] MEDS: INSULIN LISPRO 1 UNIT/0.01 ML UNIT SQ SCH ×3 (06:35→18:18)
[2018-10-09 06:37] LABS: ALT/SGPT 9 U/l (0-40); Alkaline Phosphatase 87 U/L (39-117); Bilirubin,Direct < 0.2 mg/dL (0.0-0.3); Blood Urea Nitrogen 13 mg/dl (6-20); Gamma Glutamyl Transpeptidase 29 U/L (5-36); Uric Acid 5.4 mg/dL (2.5-8.0)
[2018-10-09] MEDS ORDERED: VANCOMYCIN PER PHARMACY IV SCH (06:45)
[2018-10-09] MEDS: PANTOPRAZOLE 40 MG VIAL IV SCH ×2 (07:14→17:59)
[2018-10-09] MEDS ORDERED: PANTOPRAZOLE 40 MG VIAL IV SCH (07:30)
[2018-10-09] MEDS ORDERED: MINERAL OIL 1 DOSE ENEMA PR SCH ×3 (08:00)
[2018-10-09] MEDS ORDERED: MAGNESIUM SULFATE 32.48 MEQ in DEXTROSE 5% IN WATER 100 ML IV ONE (08:09)
[2018-10-09 08:43] LABS: Free T4 (Free Thyroxine) 1.65 ng/dl (0.7-1.7)
[2018-10-09] MEDS ORDERED: ACETAMINOPHEN 1,000 MG/100 ML BOTTLE IV SCH (09:00)
[2018-10-09] MEDS ORDERED: methylPREDNISolone SOD SUCC 40 MG/ML VIAL IV SCH (09:00)
[2018-10-09] MEDS ORDERED: MAGNESIUM SULFATE IN WATER 4 GM/100 ML BAG IV ONE (09:00)
[2018-10-09] MEDS: ENOXAPARIN 40 MG/0.4 ML SYRINGE SQ SCH (09:00)
[2018-10-09] MEDS: ACETAMINOPHEN 1,000 MG/100 ML BOTTLE IV SCH ×2 (09:01→20:41)
[2018-10-09] MEDS: HYDROmorphone 2 MG/ML VIAL IV PRN ×5 (09:49→22:49)
--- NOTE | 2018-10-09 10:26 | General Surgery Progress Note ---
Subjective Patient reports: feels better (Patient seen at bedside, states abdominal pain/ fullness improved, feels tired. NG tube inplace. Enemas performed on ostomy) Narrative: Note initiated : 10/09/18 at 10:23 am Service Date, if different from initiated Date: [] Patient: Dayanna Stephens 57 y/o F admitted on 10/08/18 for Abd pain. Chief Complaint: [] Pertinent ROS: +Fever, No current N/V, no chills, no sob or cp Objective Temp Pulse Resp BP Pulse Ox 100.5 F H 155 H 22 163/105 96 10/09/18 09:46 10/09/18 04:43 10/09/18 04:10 10/09/18 09:00 10/09/18 09:00 - Additional Data Intake & Output - Last 24 hours: Intake & Output 10/07/18 10/08/18 10/09/18 10/10/18 05:59 05:59 05:59 05:59 Intake Total 1999 4150 / 4150 Output Total 2775 / 2775 1415 / 1415 Balance -775 / -775 2735 / 2735 Weight 256 lb - General physical appearance well developed, well nourished, no distress - Eyes normal ocular movement - ENT normal mucosa - Neck trachea midline - Respiratory clear to auscultation - Cardiovascular Cardiovascular exam: Present: tachycardia - Abdomen soft (obese, NTTP, no rebound or guarding, Ostomy with claylike stool. stoma pink.) - Psychiatric oriented to time, oriented to person, oriented to place - Labs 10/09/18 04:15 10/09/18 04:15 Diabetes panel 10/08/18 10/09/18 Range/Units 17:16 04:15 Sodium 139 135 (133-145) mmol/L Potassium 3.8 4.3 (3.3-5.1) mmol/L Chloride 95 L 94 L (96-108) mmol/L Carbon Dioxide 27 29 (22-30) mmol/L BUN 17 13 (6-20) mg/dl Creatinine 0.9 0.7 (0.6-1.1) mg/dl Glucose 272 H 177 H (70-105) mg/dL Hemoglobin A1c 8.3 H (4.0-6.0) % HGB Calcium 10.0 9.2 (8.6-10.4) mg/dl AST 8 12 (0-37) U/l ALT 11 9 (0-40) U/l Alkaline Phosphatase 94 87 (39-117) U/L Total Protein 7.2 6.1 (5.9-8.4) gm/dL Albumin 3.7 3.0 L (3.2-5.2) gm/dL Triglycerides 499 H (<150) mg/dl Thyroid panel 10/09/18 Range/Units 04:15 TSH 0.17 L (0.27-5.01) uIU/ml Calcium panel 10/08/18 10/09/18 Range/Units 17:16 04:15 Calcium 10.0 9.2 (8.6-10.4) mg/dl Phosphorus 3.7 (2.7-4.5) mg/dL Albumin 3.7 3.0 L (3.2-5.2) gm/dL Pituitary panel 10/08/18 10/09/18 10/09/18 Range/Units 17:16 04:15 04:15 Sodium 139 135 (133-145) mmol/L Potassium 3.8 4.3 (3.3-5.1) mmol/L Chloride 95 L 94 L (96-108) mmol/L Carbon Dioxide 27 29 (22-30) mmol/L BUN 17 13 (6-20) mg/dl Creatinine 0.9 0.7 (0.6-1.1) mg/dl Glucose 272 H 177 H (70-105) mg/dL Calcium 10.0 9.2 (8.6-10.4) mg/dl TSH 0.17 L (0.27-5.01) uIU/ml Adrenal panel 10/08/18 10/09/18 Range/Units 17:16 04:15 Sodium 139 135 (133-145) mmol/L Potassium 3.8 4.3 (3.3-5.1) mmol/L Chloride 95 L 94 L (96-108) mmol/L Carbon Dioxide 27 29 (22-30) mmol/L BUN 17 13 (6-20) mg/dl Creatinine 0.9 0.7 (0.6-1.1) mg/dl Glucose 272 H 177 H (70-105) mg/dL Calcium 10.0 9.2 (8.6-10.4) mg/dl Total Bilirubin 0.3 0.3 (0.0-1.0) mg/dL AST 8 12 (0-37) U/l ALT 11 9 (0-40) U/l Alkaline Phosphatase 94 87 (39-117) U/L Total Protein 7.2 6.1 (5.9-8.4) gm/dL Albumin 3.7 3.0 L (3.2-5.2) gm/dL Assessment and Plan (1) Small bowel obstruction Status: Acute Current Visit: Yes (2) Fecal impaction Status: Acute Current Visit: Yes - Narrative A/P Narrative: 57yo female with multiple medical problems with small bowel obstruction likely due to fecal impaction Continue NPO with serial exams NG tube to LWS IV fluids Abx & Steroids Dvt prohylaxis Hospitalist on case appreciated. Discussed case with primary surgeon who agrees with management - Time Spent With Patient Total time spent is greater than 50% in coordination of care (as documented) at patient's floor/unit and/or counseling patient:
[2018-10-09] MEDS ORDERED: MIDAZOLAM 2 MG/2 ML VIAL IV ONE (17:05)
[2018-10-09] MEDS ORDERED: fentaNYL 100 MCG/2 ML VIAL IV ONE (17:05)
--- NOTE | 2018-10-09 18:55 | Cat Scan Report ---
CLINICAL INFORMATION: 18 cm thick-walled fluid collection within Camper's fascia of the left anterior abdominal wall in the false pelvis region. Clinically, abscess is suspected. TECHNIQUE: The procedure and risks including possibility of bleeding, infection and bowel perforation were explained to the patient. She understood and wished to proceed. She was premedicated with 2 mg versed and 100 mcg of fentanyl given intravenously. Blood pressure and pulse oximetry were monitored: She maintained consciousness during the procedure. Total sedation time approximately 30 minutes. With the patient in supine position, the fluid collection was first CT localized. The skin was marked in the left lateral position overlying the fluid collection and subsequently prepped. Local anesthesia was accomplished to level of the fluid collection using 1% lidocaine and a 25-gauge spinal needle. A 17-gauge styletted needle was placed under CT guidance into the fluid collection and approximately 10 cc of turbid yellow fluid was aspirated and sent for Gram stain, culture and sensitivity. Stylette was then removed and a 0.035 J-wire was coiled in the fluid collection. The tract was subsequently dilated to 12 Tanzanian and a 12 Tanzanian pigtail catheter was placed over the wire into the fluid collection. The wire was removed. Approximately 25 cc of turbid fluid was aspirated. Tube was secured to skin with 0 silk suture and adhesive disc. Post procedure scanning shows most of the cavity to be collapsed. There was a residual 6 cm fluid collection near midline, but this did paired to communicate with the larger collapsed cavity and probably will drain through this single catheter. The pre-existing surgical drain was removed and it did not appear to be located within the fluid and had very little pre-existing output IMPRESSION: Successful CT-guided percutaneous placement of 12 Tanzanian pigtail catheter into a large fluid collection within Camper's fascia - left anterior abdominal wall of the false pelvis. Approximately, 35 cc of purulent fluid was aspirated and sent for Gram stain, culture and sensitivity. The tube was secured the skin with suture and left to gravity bag drainage. Final images show the main cavity to be collapsed. The postprocedure images also showed a small residual 6 cm cavity near midline but does appear to communicate with this larger collapsed cavity and will likely drain via the single catheter. Patient tolerated procedure well without apparent complication. Orders were written to irrigation with 10 cc normal saline every six hours and recording output. Interpreted and Authenticated by: All Lundberg 10/09/18
[2018-10-09] MEDS: VANCOMYCIN 1,500 MG in 0.9 % SODIUM CHLORIDE 500 ML IV SCH (21:21)
[2018-10-10] MEDS: INSULIN LISPRO 1 UNIT/0.01 ML UNIT SQ SCH ×5 (00:15→23:48)
[2018-10-10] MEDS: PIPERACILLIN SODIUM/TAZOBACTAM 3.375 GM in DEXTROSE 5% IN WATER 50 ML IV SCH ×5 (00:15→23:52)
[2018-10-10] MEDS: LACTATED RINGERS 1,000 ML IV SCH ×3 (01:11→13:58)
[2018-10-10] MEDS: HYDROmorphone 2 MG/ML VIAL IV PRN ×7 (02:32→23:48)
[2018-10-10] MEDS: 0.9 % SODIUM CHLORIDE 10 ML SYRINGE IV SCH ×4 (05:24→22:26)
[2018-10-10] MEDS: HYDROCORTISONE SOD SUCC 100 MG VIAL IV SCH ×3 (05:25→22:34)
--- NOTE | 2018-10-10 05:39 | Cat Scan Report ---
CLINICAL INFORMATION: Abdominal pain and distention and fever. History of recurrent small bowel obstruction COMPARISON: 09/10/[address] TECHNIQUE: Following enteric contrast, 80 cc of Isovue-300 were injected intravenously, and 60 seconds later, 0.625 mm helical slices were obtained from the mid heart through the subtrochanteric regions. Following reconstruction, 2.5 mm sagittal, coronal and axial reformatted images were processed and reviewed at bone, lung and soft tissue windows. Five minutes later, 0.625 mm helical slices were obtained from the mid heart through the kidneys and viewed at soft tissue windows.The exam was performed using radiation dose optimization techniques including, but not limited to, automated exposure control, adjustment of the mA and/or kV according to patient size and use of iterative reconstruction technique. FINDINGS: Lung bases show subsegmental atelectasis. No effusion. The visualized heart is unremarkable. Images through the abdomen show the gallbladder is surgically absent. The intrahepatic and extra hepatic ducts are normal for post cholecystectomy state - CBD is 7 mm. This is unchanged. The pancreas is mildly atrophic - as before. The liver, spleen, both adrenal glands, kidneys and aorta are normal in size configuration and attenuation without focal lesion. The stomach, duodenum and multiple loops of jejunum are markedly dilated to a transition point in the left mid abdomen (axial image 120 and coronal image 73) where there is abrupt transition into a severely decompressed distal jejunum, ileum and colon. This appears be due to adhesion or stricture. There is no evidence of wall thickening or third spacing that would suggest ischemia. No free air. The colostomy in the left lower quadrant consisting of the descending colon which has been swung through the abdominal wall shows only a small parastomal hernia containing only mesenteric fat. Since the previous CT one month ago, a large thick-walled fluid collection has developed in the Camper's fascia in the left lower anterior abdominal wall. It spans 15 x 2.7 cm. The pre-existing surgical drain is partially within the collection anteriorly dislocated. It terminates in a infraumbilical phlegmon. Apparently, this drain has minimal output. Images through the pelvis show post normal postmenopausal uterus and urinary bladder. Ovaries not identified and are likely atrophic. NG tip overlies the gastric body. Bone windows show moderate broad L4-5 disc protrusion and facet arthropathy resulting in severe central canal and right IV foraminal narrowing impinging the exiting right L4 and descending right L5 nerve root. No focal osseous abnormality. IMPRESSION: 1. High-grade mid jejunal obstruction in the left midabdomen due to adhesion or stricture. No CT evidence of ischemia or perforation. 2. 15 x 3 cm thick-walled fluid collection in deep Camper's fascia of the left lower anterior abdominal wall. It is suspicious for abscess. The pre-existing surgical drain is only partially located within the fluid and apparently has minimal output. For this reason, CT-guided percutaneous drain placement has been ordered. 3. Mild pancreatic atrophy - stable 4. L4-5: Moderate broad disc protrusion and facet arthropathy resulting in severe central canal right lateral recess and IV foraminal narrowing impinging the exiting right L4 and descending right L5 nerve roots. This may be asymptomatic Interpreted and Authenticated by: All Lundberg 10/10/18
[2018-10-10 05:44] LABS: Basophils # (Auto) 0 K/mcL (0.0-0.3); Basophils % (Auto) 0.3 % (0.0-2.0); Eosinophils # (Auto) 0.1 K/mcL (0.0-0.7); Eosinophils % (Auto) 0.7 % (0.0-7.0); Granulocytes % (Auto) 82.7 % (38.0-78.0); Lymphocytes # (Auto) 1.1 K/mcL (1.5-4.8); Lymphocytes % (Auto) 12.6 % (15.5-49.0); Mean Cell Volume 80.3 fL (80.0-100.0); Mean Corpuscular HGB Conc 32.2 g/dL (31.0-36.0); Monocytes # (Auto) 0.3 K/mcL (0.1-0.9); Monocytes % (Auto) 3.7 % (1.0-12.0); Platelet Count 360 K/mcL (140-440); RBC 3.48 M/mcL (4.00-5.20); Red Cell Distribution Width 16.1 % (11.5-14.5)
[2018-10-10 06:08] LABS: Blood Urea Nitrogen 11 mg/dl (6-20)
[2018-10-10] MEDS: PANTOPRAZOLE 40 MG VIAL IV SCH ×2 (07:36→17:14)
[2018-10-10] MEDS: ACETAMINOPHEN 1,000 MG/100 ML BOTTLE IV SCH (08:18)
[2018-10-10] MEDS ORDERED: LACTATED RINGERS 1,000 ML IV SCH (08:21)
--- NOTE | 2018-10-10 08:46 | General Surgery Progress Note ---
Subjective Patient reports: no new complaints Narrative: Note initiated : 10/10/18 at 8:44 am Service Date, if different from initiated Date: [] Patient: Dayanna Stephens 57 y/o F admitted on 10/08/18 for Abd pain. Patient seen at [facility]. No complaints. Still feels full with no ostomy output. Ir drainage of anterior wall abscess yesterday without incident. Pertinent ROS: Denies N/V, No F/C/Ns, No SOB or CP, Objective Temp Pulse Resp BP Pulse Ox 99.2 F H 155 H 16 140/84 96 10/10/18 07:42 10/09/18 04:43 10/10/18 07:42 10/10/18 07:42 10/10/18 07:42 - Additional Data Intake & Output - Last 24 hours: Intake & Output 10/08/18 10/09/18 10/10/18 10/11/18 05:59 05:59 05:59 05:59 Intake Total 1999 / 1999 6500 / 6500 50 / 50 Output Total 2775 / 2775 3211 / 3211 Balance -775 / -775 3289 / 3289 50 / 50 Weight 256 lb 249 lb 3.2 oz - General physical appearance no distress - Eyes normal ocular movement - ENT normal mucosa - Respiratory clear to auscultation - Cardiovascular Cardiovascular exam: Present: normal rate and rhythm - Abdomen soft (Obese, NTTP, No rebound or guarding, Drains in place. Ostomy stoma pink, no stool in bag.) - Labs 10/10/18 04:00 10/10/18 04:00 Diabetes panel 10/10/18 Range/Units 04:00 Sodium 140 (133-145) mmol/L Potassium 4.2 (3.3-5.1) mmol/L Chloride 100 (96-108) mmol/L Carbon Dioxide 29 (22-30) mmol/L BUN 11 (6-20) mg/dl Creatinine 0.9 (0.6-1.1) mg/dl Glucose 199 H (70-105) mg/dL Calcium 8.0 L (8.6-10.4) mg/dl Calcium panel 10/10/18 Range/Units 04:00 Calcium 8.0 L (8.6-10.4) mg/dl Pituitary panel 10/10/18 Range/Units 04:00 Sodium 140 (133-145) mmol/L Potassium 4.2 (3.3-5.1) mmol/L Chloride 100 (96-108) mmol/L Carbon Dioxide 29 (22-30) mmol/L BUN 11 (6-20) mg/dl Creatinine 0.9 (0.6-1.1) mg/dl Glucose 199 H (70-105) mg/dL Calcium 8.0 L (8.6-10.4) mg/dl Adrenal panel 10/10/18 Range/Units 04:00 Sodium 140 (133-145) mmol/L Potassium 4.2 (3.3-5.1) mmol/L Chloride 100 (96-108) mmol/L Carbon Dioxide 29 (22-30) mmol/L BUN 11 (6-20) mg/dl Creatinine 0.9 (0.6-1.1) mg/dl Glucose 199 H (70-105) mg/dL Calcium 8.0 L (8.6-10.4) mg/dl - Imaging CT scan - abdomen: report reviewed, image reviewed (Ct guided drainage catheter) Assessment and Plan (1) Small bowel obstruction Status: Acute Current Visit: Yes (2) Fecal impaction Status: Acute Current Visit: Yes - Narrative A/P Narrative: 57yo female with multiple medical problems with small bowel obstruction likely due to fecal impaction Continue NPO with serial exams NG tube to LWS IV fluids Abx & Steroids Dvt prophylaxis continue PREETI and IR drains. Hospitalist on case appreciated. Will replace electrolytes PRN Pt eval & treat, OOB to chair - Time Spent With Patient Total time spent is greater than 50% in coordination of care (as documented) at patient's floor/unit and/or counseling patient:
[2018-10-10] MEDS: ENOXAPARIN 40 MG/0.4 ML SYRINGE SQ SCH (09:25)
[2018-10-10] MEDS: VANCOMYCIN 1,500 MG in 0.9 % SODIUM CHLORIDE 500 ML IV SCH (11:44)
--- NOTE | 2018-10-10 12:17 | Internal Med Progress Note ---
Medical - PN: Subj Patient information: Note initiated : 10/10/18 at 12:11 pm Service Date, if different from initiated Date: [] Patient: Dayanna Stephens a 57 y/o F admitted on 10/08/18 for Abd pain. Chief Complaint: [] Interval history: Ms. Stephens is a 57 year old F with h/o recurrent bowel obstruction, multiple bowel surgeries presents to the hospital today for evaluation of abdominal pain. The patient had a last bowel surgery at the end of July, was seen by Dr. Currie she was doing well on oral laxative regimen. She had [address] after surgery that was still draining. On she noted that the drain on the right side stopped draining and she took it out. Left-sided drain is still in place. Since yesterday the patient has been complaining about abdominal pain not feeling well nausea vomiting and decreased output through the stoma. She therefore came to the emergency room for further management. The patient was evaluated by general surgery and admitted to the service. Medicine has been consulted for management of chronic medical issues. The patient has a history of morbid obesity, myasthenia gravis diabetes, hypoparathyroidism, hypocalcemia, polyglandular disease. The patient is on chronic high-dose steroids 20 mg of prednisone daily. After being admitted to the hospital the patient was given some enemas last night, around 3:30 AM it was noted that the patient was not feeling well, she was feeling more weak than before, dizzy had some headache and a heart rate was elevated in the 140s-150s. At baseline in the past the patient's heart rate has always been elevated. The patient was moved to telemetry, chest x-ray ordered labs blood culture ordered. There was a low-grade temperature 99.3 noted. ABG shows pH of 7.48 PCO2 45 PO2 72 on 2 L of oxygen lactic acid was 1.5. Chest x-ray is pending CT abdomen and pelvis done last night reviewed showed possible abscess in the anterior abdominal wall. I tried to aspirate a sample of the abscess using a 1.5 inch 18-gauge needle with ultrasound guidance however I believe that was not able to reach the abscess. 10/10 Pt seen examined, no acute overnight issues, No major activity at colostomy, Still has abominal pain WBC trended down, NG in place, on broad spectrum abx Drained fluid from Ant abdominal wall, by Radiology still a pocket of 6cm abscess remains, to be drained by surgery. Cultures are negative so far. Pertinent ROS: Denies headache, dizziness Denies chest pain, palpitations Denies cough or shortness of breath present abdominal pain, nausea no vomiting. - Constitutional Vitals: Vital Signs Temp Pulse Resp BP Pulse Ox 100.2 F H 155 H 21 160/91 89 L 10/10/18 11:49 10/09/18 04:43 10/10/18 12:04 10/10/18 11:49 10/10/18 11:49 Period Temp Pulse Resp BP Sys/Archuleta Pulse Ox Last 24 Hr 99.0 F-100.2 F - 92-160/59-91 89-100 Intake and Output 10/09/18 10/10/18 10/10/18 21:59 05:59 13:59 Intake Total 1050 / 1050 650 / 650 1227 / 1227 Output Total 1005 / 1005 791 / 791 Balance 45 / 45 -141 / -141 1227 / 1227 Weight 249 lb 3.2 oz Intake & Output: Intake & Output 10/09/18 10/10/18 10/10/18 21:59 05:59 13:59 Intake Total 1050 / 1050 650 / 650 1227 / 1227 Output Total 1005 / 1005 791 / 791 Balance 45 / 45 -141 / -141 1227 / 1227 Weight 249 lb 3.2 oz Intake: IV 1050 / 1050 650 / 650 1227 / 1227 Lactated Ringers 1,000 ml @ 75 1000 / 1000 77 / 77 mls/hr IV .[id number] MALENA Rx#: [id number] Zosyn 3.375 gm In Dextrose 5% 50 / 50 50 / 50 50 / 50 in Water 50 ml @ 100 mls/hr IV Q6H MALENA Rx#:[id number] Vancomycin 1,500 mg In Sodium 500 / 500 Chloride 0.9% 500 ml @ 333.3 mls/hr IV Q12H MALENA Rx#: [id number] Output: Gastric Drainage 650 / 650 Left Nare 650 / 650 Drainage 41 / 41 Left Lower Abdomen PREETI Drain Pigtail 30 / 30 Urine Catheter Amount 750 / 750 Void Amount 350 / 350 Other: Urine Appearance Clear Clear Uretheral (Martinez) Clear Urine Color Light Shwetha Light Shwetha Uretheral (Martinez) Bright Yellow Urine Odor Strong Exam: Constitutional; Afebrile, cooperative, alert, not in distress. Eyes- No icterus, , No periorbital swelling Ears- Ext ear normal, hearing normal to conversation. Neck- Midline trachea, supple Respiratory system: Air Entry equal on both sides, No crackles or wheezing, no rhonchi. CVS- Rate rhythm regular, S1,S2 heard, no gallop, no rub. Abdomen- Soft abdomen, no stools in the colostomy bag. 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 Medical - PN: Obj Da - Labs CBC & Chem 7: 10/10/18 04:00 10/10/18 04:00 Labs: Abnormal Lab Results 10/10/18 10/10/18 10/10/18 07:53 04:00 04:00 WBC RBC 3.48 L Hgb 9.0 L Hct 27.9 L MCV MCH 25.8 L RDW 16.1 H Plt Count Gran % 82.7 H Lymph % (Auto) 12.6 L Gran # Lymph # (Auto) 1.1 L [place] # (Auto) VBG Lactic Acid Chloride Anion Gap Glucose 199 H Hemoglobin A1c Calcium 8.0 L Magnesium Albumin Triglycerides TSH Urine Glucose (UA) Urine Ketones Vancomycin Trough 23.9 H* 10/09/18 10/09/18 10/09/18 04:15 04:15 04:15 WBC 15.7 H RBC 3.83 L Hgb 10.1 L Hct 30.8 L MCV MCH RDW 15.6 H Plt Count Gran % 82.5 H Lymph % (Auto) 10.5 L Gran # 12.9 H Lymph # (Auto) [place] # (Auto) VBG Lactic Acid Chloride 94 L Anion Gap Glucose 177 H Hemoglobin A1c 8.3 H Calcium Magnesium 1.4 L Albumin 3.0 L Triglycerides 499 H TSH 0.17 L Urine Glucose (UA) Urine Ketones Vancomycin Trough 10/09/18 10/08/18 10/08/18 00:15 17:16 17:16 WBC RBC Hgb Hct MCV MCH RDW Plt Count Gran % Lymph % (Auto) Gran # Lymph # (Auto) [place] # (Auto) VBG Lactic Acid 2.4 H Chloride 95 L Anion Gap 17.0 H Glucose 272 H Hemoglobin A1c Calcium Magnesium Albumin Triglycerides TSH Urine Glucose (UA) 150 A Urine Ketones 5/tr A Vancomycin Trough 10/08/18 17:16 WBC 14.3 H RBC Hgb 11.0 L Hct 34.2 L MCV 79.7 L MCH 25.5 L RDW 15.7 H Plt Count 458 H Gran % Lymph % (Auto) Gran # 10.5 H Lymph # (Auto) [place] # (Auto) 1.0 H VBG Lactic Acid Chloride Anion Gap Glucose Hemoglobin A1c Calcium Magnesium Albumin Triglycerides TSH Urine Glucose (UA) Urine Ketones Vancomycin Trough Meds: Medications Dextrose (Dextrose 50%) 0 ml IV UD PRN PRN Reason: Hypoglycemia Diagnostic Test (Pha) (Accu-Chek) 1 each FS Q6 [facility] Last Admin: 10/10/18 12:09 Dose: 1 each Enoxaparin Sodium (Lovenox) 40 mg SQ DAILY [facility] Stop: 10/18/18 22:59 Last Admin: 10/10/18 09:25 Dose: 40 mg Hydralazine HCl (Apresoline) 10 mg IV Q4-6HP PRN PRN Reason: Hypertension Last Admin: 10/09/18 09:48 Dose: 10 mg Hydrocortisone Sodium Succinate (Solu-Cortef) 100 mg IV Q8 [facility] Last Admin: 10/10/18 05:25 Dose: 100 mg Hydromorphone HCl (Dilaudid) 0.5 - 1 mg IV Q2HP PRN PRN Reason: PAIN LEVEL > 6 Last Admin: 10/10/18 09:58 Dose: 0.5 mg Acetaminophen (Ofirmev) 1,000 mg in 100 mls @ 200 mls/hr IV Q12 [facility] Stop: 10/11/18 08:59 Last Infusion: 10/10/18 08:50 Dose: Infused Piperacillin Sod/Tazobactam (Sod 3.375 gm/ Dextrose) 50 mls @ 100 mls/hr IV Q6H [facility] Last Admin: 10/10/18 12:00 Dose: 100 mls/hr Lactated Ringer's (Lactated Ringers) 1,000 mls @ 75 mls/hr IV .[id number] [facility] Last Infusion: 10/10/18 12:00 Dose: 0 mls/hr Insulin Human Lispro (Humalog) 0 unit SQ Q6 [facility]; Protocol Last Admin: 10/10/18 05:24 Dose: Not Given Pantoprazole Sodium (Protonix) 40 mg IV BIDAC [facility] Last Admin: 10/10/18 07:36 Dose: 40 mg Promethazine HCl (Phenergan) 12.5 mg IV Q4HP PRN PRN Reason: Nausea And Vomiting Sodium Chloride (Saline Flush) 10 ml IV Q8 [facility] Last Admin: 10/10/18 07:36 Dose: 10 ml Vancomycin HCl (Vancomycin Per Pharmacy) 1 order IV UD [facility] Medical - PN: A/P - Time Spent With Patient Total time spent is greater than 50% in coordination of care (as documented) at patient's floor/unit and/or counseling patient: - Narrative A/P Narrative: A/P Bowel obstruction- NG in place, Management per surgery. Ant Abdominal wall abcess- Noted on CT, drain placed by radiology, still has a 6cm lesion, on vanco and zosyn for now, cultures neg so far Weakness/TAcycardia/Dizziness- Pt condition improved, Does have intermittent tachycardia, but HR now much better, DM - SSI for glucose management Myasthenia Gravis- on po prednisone 20 am at baseline, on hydrocortisone 100q8, will wean down to 50 q8 from tomorrow Hypocalcemia-Due to hypoparathyroidsim/polyglandular syndrome, Was supposed to be on calcium supplements nad calcitriol, calcium is ok on admit, but anticipate that it will drop as pt remains NPO. Tico is 8.0 Hypertension- BP elevated due to pain/ acute condition, treat underlying condition, if BP goes up too high, will give some hydralazine to help. DVT enoxaparin NPO status. Medical - PN: Qual - VTE Deep Vein Thrombosis/Pulmonary Embolism Present on Admission: No
--- NOTE | 2018-10-10 12:40 | Ultrasound Report ---
CLINICAL INFORMATION: abdominal wall abscess COMPARISON: None. FINDINGS: There is a 15 x 3 cm thick wall fluid collection within deep Camper's fascia extending over the anterior wall the of left false pelvis. A surgical tube is seen intermittently throughout the fluid but the terminal end of the tube out of the fluid in Camper fascia the infraumbilical region. The fluid collection is complex with multiple internal echoes IMPRESSION: 15 x 3 cm complex fluid collection within the Camper's fascia within the anterior abdominal wall of the left false pelvic region. Abscess is suspected. Follow-up CT-guided drainage be performed Interpreted and Authenticated by: All Lundberg 10/10/18
[2018-10-10] MEDS ORDERED: DEXTROSE 50% 50 ML VIAL IV PRN (12:45)
[2018-10-10] MEDS ORDERED: hydrALAZINE 20 MG/ML VIAL IV PRN (12:45)
[2018-10-10] MEDS ORDERED: VANCOMYCIN PER PHARMACY IV SCH (12:45)
[2018-10-10] MEDS: PROMETHAZINE 25 MG/ML VIAL IV PRN ×2 (14:15→21:17)
[2018-10-10] MEDS: ACETAMINOPHEN 1,000 MG/100 ML BOTTLE IV PRN (17:45)
[2018-10-10] MEDS ORDERED: ACETAMINOPHEN 1,000 MG/100 ML BOTTLE IV SCH (21:00)
[2018-10-11] MEDS: ACETAMINOPHEN 1,000 MG/100 ML BOTTLE IV PRN ×3 (00:24→21:26)
[2018-10-11] MEDS: HYDROmorphone 2 MG/ML VIAL IV PRN ×7 (02:32→19:23)
[2018-10-11] MEDS: LACTATED RINGERS 1,000 ML IV SCH ×3 (04:02→20:51)
[2018-10-11 05:15] LABS: Basophils # (Auto) 0 K/mcL (0.0-0.3); Basophils % (Auto) 0.3 % (0.0-2.0); Eosinophils # (Auto) 0 K/mcL (0.0-0.7); Eosinophils % (Auto) 0.4 % (0.0-7.0); Lymphocytes # (Auto) 1.2 K/mcL (1.5-4.8); Lymphocytes % (Auto) 19.6 % (15.5-49.0); Mean Cell Volume 80.1 fL (80.0-100.0); Mean Corpuscular HGB Conc 32.7 g/dL (31.0-36.0); Monocytes # (Auto) 0.3 K/mcL (0.1-0.9); Monocytes % (Auto) 4.7 % (1.0-12.0); Platelet Count 354 K/mcL (140-440); Red Cell Distribution Width 15.5 % (11.5-14.5)
[2018-10-11 05:25] LABS: Vancomycin,Random 8.1 ug/mL
[2018-10-11 05:32] LABS: Blood Urea Nitrogen 10 mg/dl (6-20)
[2018-10-11] MEDS: PIPERACILLIN SODIUM/TAZOBACTAM 3.375 GM in DEXTROSE 5% IN WATER 50 ML IV SCH ×3 (05:47→17:39)
[2018-10-11] MEDS: 0.9 % SODIUM CHLORIDE 10 ML SYRINGE IV SCH ×3 (05:50→21:11)
[2018-10-11] MEDS: INSULIN LISPRO 1 UNIT/0.01 ML UNIT SQ SCH ×4 (05:50→23:44)
[2018-10-11] MEDS: HYDROCORTISONE SOD SUCC 100 MG VIAL IV SCH (05:58)
[2018-10-11] MEDS: PANTOPRAZOLE 40 MG VIAL IV SCH ×2 (07:29→16:32)
[2018-10-11] MEDS ORDERED: MAGNESIUM SULFATE 2 GM/50 ML BAG IV ONE (08:28)
[2018-10-11] MEDS ORDERED: FLEETS ADULT ENEMA PR SCH (09:00)
[2018-10-11] MEDS ORDERED: VANCOMYCIN 1,500 MG in 0.9 % SODIUM CHLORIDE 500 ML IV ONE (09:00)
[2018-10-11] MEDS: ENOXAPARIN 40 MG/0.4 ML SYRINGE SQ SCH (09:01)
[2018-10-11] MEDS: PROMETHAZINE 25 MG/ML VIAL IV PRN ×2 (09:25→21:27)
[2018-10-11] MEDS: FLEETS ADULT ENEMA PR SCH (10:36)
--- NOTE | 2018-10-11 10:49 | Internal Med Progress Note ---
Medical - PN: Subj Patient information: Note initiated : 10/11/18 at 10:46 am Service Date, if different from initiated Date: [] Patient: Dayanna Stephens a 57 y/o F admitted on 10/08/18 for Abd pain. Chief Complaint: [] Interval history: Ms. Stephens is a 57 year old F with h/o recurrent bowel obstruction, multiple bowel surgeries presents to the hospital today for evaluation of abdominal pain. The patient had a last bowel surgery at the end of July, was seen by Dr. Currie she was doing well on oral laxative regimen. She had [address] after surgery that was still draining. On she noted that the drain on the right side stopped draining and she took it out. Left-sided drain is still in place. Since yesterday the patient has been complaining about abdominal pain not feeling well nausea vomiting and decreased output through the stoma. She therefore came to the emergency room for further management. The patient was evaluated by general surgery and admitted to the service. Medicine has been consulted for management of chronic medical issues. The patient has a history of morbid obesity, myasthenia gravis diabetes, hypoparathyroidism, hypocalcemia, polyglandular disease. The patient is on chronic high-dose steroids 20 mg of prednisone daily. After being admitted to the hospital the patient was given some enemas last night, around 3:30 AM it was noted that the patient was not feeling well, she was feeling more weak than before, dizzy had some headache and a heart rate was elevated in the 140s-150s. At baseline in the past the patient's heart rate has always been elevated. The patient was moved to telemetry, chest x-ray ordered labs blood culture ordered. There was a low-grade temperature 99.3 noted. ABG shows pH of 7.48 PCO2 45 PO2 72 on 2 L of oxygen lactic acid was 1.5. Chest x-ray is pending CT abdomen and pelvis done last night reviewed showed possible abscess in the anterior abdominal wall. I tried to aspirate a sample of the abscess using a 1.5 inch 18-gauge needle with ultrasound guidance however I believe that was not able to reach the abscess. 10/10 Pt seen examined, no acute overnight issues, No major activity at colostomy, Still has abominal pain WBC trended down, NG in place, on broad spectrum abx Drained fluid from Ant abdominal wall, by Radiology still a pocket of 6cm abscess remains, to be drained by surgery. Cultures are negative so far. 10/11 Pt seen examined, still has some abdominal pain small smudge of stools no new complaints Labs stable, hemodynamically stable switch hydrocotisone to IV solumedrol 20mg Pertinent ROS: Denies headache, dizziness Denies chest pain, palpitations Denies cough or shortness of breath present abdominal pain, No nausea or vomiting. - Constitutional Vitals: Vital Signs Temp Pulse Resp BP Pulse Ox 99.4 F H 93 H 20 148/92 91 10/11/18 06:50 10/11/18 04:10 10/11/18 06:50 10/11/18 06:50 10/11/18 06:50 Period Temp Pulse Resp BP Sys/Archuleta Pulse Ox Last 24 Hr 98.4 F-100.2 F 90-103 14-21 138-160/76-92 89-96 Intake and Output 10/10/18 10/11/18 10/11/18 21:59 05:59 13:59 Intake Total 150 / 150 1150 / 1150 Output Total 325 / 325 565 / 565 275 / 275 Balance -175 / -175 585 / 585 -275 / -275 Weight 255 lb Intake & Output: Intake & Output 10/10/18 10/11/18 10/11/18 21:59 05:59 13:59 Intake Total 150 / 150 1150 / 1150 Output Total 325 / 325 565 / 565 275 / 275 Balance -175 / -175 585 / 585 -275 / -275 Weight 255 lb Intake: IV 150 / 150 1150 / 1150 Lactated Ringers 1,000 ml @ 75 1000 / 1000 mls/hr IV .[id number] [facility] Rx#: [id number] Zosyn 3.375 gm In Dextrose 5% 50 / 50 50 / 50 in Water 50 ml @ 100 mls/hr IV Q6H [facility] Rx#:[id number] Output: Gastric Drainage 250 / 250 Left Nare 250 / 250 Drainage 15 / 15 Pigtail 15 / 15 Urine Catheter Amount 325 / 325 Void Amount 300 / 300 275 / 275 Other: Urine Appearance Clear Cloudy Cloudy Urine Color Bright Yellow Dark Yellow Dark Yellow Urine Odor Normal Stool Size Smear Stool Color Brown Exam: Constitutional; Afebrile, cooperative, alert, not in distress. Respiratory system: Air Entry equal on both sides, No crackles or wheezing, no rhonchi. CVS- Rate rhythm regular, S1,S2 heard, no gallop, no rub. Abdomen- Soft but tender abdomen, bowel tones present, no guarding or rigidity [employer]- AOOx3, moving all extremities, no gross focal deficit noted. Medical - PN: Obj Da - Labs CBC & Chem 7: 10/11/18 04:05 10/11/18 04:05 Labs: Abnormal Lab Results 10/11/18 10/11/18 10/10/18 04:05 04:05 07:53 WBC RBC 3.30 L Hgb 8.7 L Hct 26.4 L MCV MCH RDW 15.5 H Plt Count MPV 7.3 L Gran % Lymph % (Auto) Gran # Lymph # (Auto) 1.2 L [place] # (Auto) VBG Lactic Acid Chloride Anion Gap Glucose 174 H Hemoglobin A1c Calcium 7.8 L Magnesium Albumin Triglycerides TSH Urine Glucose (UA) Urine Ketones Vancomycin Trough 23.9 H* 10/10/18 10/10/18 10/09/18 04:00 04:00 04:15 WBC RBC 3.48 L Hgb 9.0 L Hct 27.9 L MCV MCH 25.8 L RDW 16.1 H Plt Count MPV Gran % 82.7 H Lymph % (Auto) 12.6 L Gran # Lymph # (Auto) 1.1 L [place] # (Auto) VBG Lactic Acid Chloride Anion Gap Glucose 199 H Hemoglobin A1c Calcium 8.0 L Magnesium Albumin Triglycerides TSH 0.17 L Urine Glucose (UA) Urine Ketones Vancomycin Trough 10/09/18 10/09/18 10/09/18 04:15 04:15 00:15 WBC 15.7 H RBC 3.83 L Hgb 10.1 L Hct 30.8 L MCV MCH RDW 15.6 H Plt Count MPV Gran % 82.5 H Lymph % (Auto) 10.5 L Gran # 12.9 H Lymph # (Auto) [place] # (Auto) VBG Lactic Acid Chloride 94 L Anion Gap Glucose 177 H Hemoglobin A1c 8.3 H Calcium Magnesium 1.4 L Albumin 3.0 L Triglycerides 499 H TSH Urine Glucose (UA) 150 A Urine Ketones 5/tr A Vancomycin Trough 10/08/18 10/08/18 10/08/18 17:16 17:16 17:16 WBC 14.3 H RBC Hgb 11.0 L Hct 34.2 L MCV 79.7 L MCH 25.5 L RDW 15.7 H Plt Count 458 H MPV Gran % Lymph % (Auto) Gran # 10.5 H Lymph # (Auto) [place] # (Auto) 1.0 H VBG Lactic Acid 2.4 H Chloride 95 L Anion Gap 17.0 H Glucose 272 H Hemoglobin A1c Calcium Magnesium Albumin Triglycerides TSH Urine Glucose (UA) Urine Ketones Vancomycin Trough Meds: Medications Benzocaine (Cetacaine) 1 spray TOPICAL PRN PRN PRN Reason: throat pain Dextrose (Dextrose 50%) 0 ml IV UD PRN PRN Reason: Hypoglycemia Diagnostic Test (Pha) (Accu-Chek) 1 each FS Q6 [facility] Last Admin: 10/11/18 05:49 Dose: 1 each Enoxaparin Sodium (Lovenox) 40 mg SQ DAILY [facility] Stop: 10/18/18 22:59 Last Admin: 10/11/18 09:01 Dose: 40 mg Hydralazine HCl (Apresoline) 10 mg IV Q4-6HP PRN PRN Reason: Hypertension Hydrocortisone Sodium Succinate (Solu-Cortef) 100 mg IV Q8 [facility] Last Admin: 10/11/18 05:58 Dose: 100 mg Hydromorphone HCl (Dilaudid) 0.5 - 1 mg IV Q2HP PRN PRN Reason: PAIN LEVEL > 6 Last Admin: 10/11/18 08:40 Dose: 0.5 mg Lactated Ringer's (Lactated Ringers) 1,000 mls @ 75 mls/hr IV .[id number] [facility] Last Admin: 10/11/18 04:02 Dose: 75 mls/hr Piperacillin Sod/Tazobactam (Sod 3.375 gm/ Dextrose) 50 mls @ 100 mls/hr IV Q6H [facility] Last Admin: 10/11/18 05:47 Dose: 100 mls/hr Acetaminophen (Ofirmev) 1,000 mg in 100 mls @ 200 mls/hr IV Q6HP PRN PRN Reason: Pain/Fever. Last Admin: 10/11/18 07:54 Dose: 200 mls/hr Insulin Human Lispro (Humalog) 0 unit SQ Q6 [facility]; Protocol Last Admin: 10/11/18 05:50 Dose: Not Given Pantoprazole Sodium (Protonix) 40 mg IV BIDAC [facility] Last Admin: 10/11/18 07:29 Dose: 40 mg Promethazine HCl (Phenergan) 12.5 mg IV Q4HP PRN PRN Reason: Nausea And Vomiting Last Admin: 10/11/18 09:25 Dose: 12.5 mg Sodium Biphosphate/Sodium Phosphate (Fleets Adult) 1 dose [place] DAILY [facility] Last Admin: 10/11/18 10:36 Dose: 1 dose Sodium Chloride (Saline Flush) 10 ml IV Q8 [facility] Last Admin: 10/11/18 05:50 Dose: 10 ml Vancomycin HCl (Vancomycin Per Pharmacy) 1 order IV UD [facility] Medical - PN: A/P - Time Spent With Patient Total time spent is greater than 50% in coordination of care (as documented) at patient's floor/unit and/or counseling patient: - Narrative A/P Narrative: A/P Bowel obstruction- NG in place, Management per surgery. Ant Abdominal wall abcess- Noted on CT, drain placed by radiology, still has a 6cm lesion, on vanco and zosyn for now, cultures neg so far , Mangement per surgery. Weakness/TAcycardia/Dizziness- Pt condition improved, Does have intermittent tachycardia, but HR now much better, DM - SSI for glucose management Myasthenia Gravis- on po prednisone 20 am at baseline,was on hydrocortisone 100q8, will swithc to IV solumedrol from now. Hypocalcemia-Due to hypoparathyroidsim/polyglandular syndrome, Was supposed to be on calcium supplements nad calcitriol, calcium is ok on admit, but anticipate that it will drop as pt remains NPO. Tico is 7.8 Hypomagnesemia- replace Hypertension- BP elevated due to pain/ acute condition, treat underlying condition, if BP goes up too high, will give some hydralazine to help. BP is stable now. DVT enoxaparin NPO status. Medical - PN: Qual - VTE Deep Vein Thrombosis/Pulmonary Embolism Present on Admission: No
[2018-10-11] MEDS: BENZOCAINE 1 SPRAY BOTTLE TOPICAL PRN ×4 (10:56→21:12)
--- NOTE | 2018-10-11 11:44 | General Surgery Progress Note ---
Subjective Patient reports: no new complaints, pain is less (Patient seen bedside. Small amount of stool from ostomy noted. NG tube in place., OOB to chair. pain minimal currently.) Narrative: Note initiated : 10/11/18 at 11:42 am Service Date, if different from initiated Date: [] Patient: Dayanna Stephens a 57 y/o F admitted on 10/08/18 for Abd pain. Chief Complaint: [] Pertinent ROS: Denies, N/V, no F/C/NS, no SOB or CP. Objective Temp Pulse Resp BP Pulse Ox 99.4 F H 93 H 20 148/92 91 10/11/18 06:50 10/11/18 04:10 10/11/18 06:50 10/11/18 06:50 10/11/18 06:50 - Additional Data Intake & Output - Last 24 hours: Intake & Output 10/09/18 10/10/18 10/11/18 10/12/18 05:59 05:59 05:59 05:59 Intake Total 1999 / 1999 6500 / 6500 2577 / 2577 Output Total 2775 / 2775 3211 / 3211 906 / 906 275 / 275 Balance -775 / -775 3289 / 3289 1671 / 1671 -275 / -275 Weight 256 lb 249 lb 3.2 oz 255 lb - General physical appearance well developed, well nourished, no distress - Eyes normal ocular movement - ENT normal mucosa - Neck trachea midline - Respiratory normal respiratory effort - Cardiovascular Cardiovascular exam: Present: normal rate and rhythm - Abdomen soft (Obese, NTTP, No rebound or guarding. IR drain in place with serous output. ) - Integumentary no rash - Psychiatric oriented to time, oriented to person, oriented to place - Labs 10/11/18 04:05 10/11/18 04:05 Diabetes panel 10/11/18 Range/Units 04:05 Sodium 140 (133-145) mmol/L Potassium 3.9 (3.3-5.1) mmol/L Chloride 99 (96-108) mmol/L Carbon Dioxide 28 (22-30) mmol/L BUN 10 (6-20) mg/dl Creatinine 0.8 (0.6-1.1) mg/dl Glucose 174 H (70-105) mg/dL Calcium 7.8 L (8.6-10.4) mg/dl Calcium panel 10/11/18 Range/Units 04:05 Calcium 7.8 L (8.6-10.4) mg/dl Phosphorus 3.7 (2.7-4.5) mg/dL Pituitary panel 10/11/18 Range/Units 04:05 Sodium 140 (133-145) mmol/L Potassium 3.9 (3.3-5.1) mmol/L Chloride 99 (96-108) mmol/L Carbon Dioxide 28 (22-30) mmol/L BUN 10 (6-20) mg/dl Creatinine 0.8 (0.6-1.1) mg/dl Glucose 174 H (70-105) mg/dL Calcium 7.8 L (8.6-10.4) mg/dl Adrenal panel 10/11/18 Range/Units 04:05 Sodium 140 (133-145) mmol/L Potassium 3.9 (3.3-5.1) mmol/L Chloride 99 (96-108) mmol/L Carbon Dioxide 28 (22-30) mmol/L BUN 10 (6-20) mg/dl Creatinine 0.8 (0.6-1.1) mg/dl Glucose 174 H (70-105) mg/dL Calcium 7.8 L (8.6-10.4) mg/dl Assessment and Plan (1) Small bowel obstruction Status: Acute Current Visit: Yes (2) Fecal impaction Status: Acute Current Visit: Yes - Narrative A/P Narrative: 57yo female with multiple medical problems with small bowel obstruction likely due to fecal impaction Continue NPO with serial exams NG tube to LWS IV fluids Abx & Steroids Dvt prophylaxis continue IR drains. Fleet enemas via stoma Hospitalist on case appreciated. Will replace electrolytes PRN Pt eval & treat, OOB to chair - Time Spent With Patient Total time spent is greater than 50% in coordination of care (as documented) at patient's floor/unit and/or counseling patient:
[2018-10-11] MEDS: methylPREDNISolone SOD SUCC 40 MG/ML VIAL IV SCH (11:56)
--- NOTE | 2018-10-11 13:09 | Internal Med Progress Note ---
Medical - PN: Subj Patient information: Note initiated : 10/11/18 at 1:07 pm Service Date, if different from initiated Date: [] Patient: Dayanna Stephens a 57 y/o F admitted on 10/08/18 for Abd pain. Chief Complaint: [] Interval history: Ms. Stephens is a 57 year old F with h/o recurrent bowel obstruction, multiple bowel surgeries presents to the hospital today for evaluation of abdominal pain. The patient had a last bowel surgery at the end of July, was seen by Dr. Currie she was doing well on oral laxative regimen. She had [address] after surgery that was still draining. On she noted that the drain on the right side stopped draining and she took it out. Left-sided drain is still in place. Since yesterday the patient has been complaining about abdominal pain not feeling well nausea vomiting and decreased output through the stoma. She therefore came to the emergency room for further management. The patient was evaluated by general surgery and admitted to the service. Medicine has been consulted for management of chronic medical issues. The patient has a history of morbid obesity, myasthenia gravis diabetes, hypoparathyroidism, hypocalcemia, polyglandular disease. The patient is on chronic high-dose steroids 20 mg of prednisone daily. After being admitted to the hospital the patient was given some enemas last night, around 3:30 AM it was noted that the patient was not feeling well, she was feeling more weak than before, dizzy had some headache and a heart rate was elevated in the 140s-150s. At baseline in the past the patient's heart rate has always been elevated. The patient was moved to telemetry, chest x-ray ordered labs blood culture ordered. There was a low-grade temperature 99.3 noted. ABG shows pH of 7.48 PCO2 45 PO2 72 on 2 L of oxygen lactic acid was 1.5. Chest x-ray is pending CT abdomen and pelvis done last night reviewed showed possible abscess in the anterior abdominal wall. I tried to aspirate a sample of the abscess using a 1.5 inch 18-gauge needle with ultrasound guidance however I believe that was not able to reach the abscess. 10/10 Pt seen examined, no acute overnight issues, No major activity at colostomy, Still has abominal pain WBC trended down, NG in place, on broad spectrum abx Drained fluid from Ant abdominal wall, by Radiology still a pocket of 6cm abscess remains, to be drained by surgery. Cultures are negative so far. 10/11 Pt seen examined, still has some abdominal pain small smudge of stools no new complaints Labs stable, hemodynamically stable switch hydrocotisone to IV solumedrol 20mg 10/12 - Constitutional Vitals: Vital Signs Temp Pulse Resp BP Pulse Ox 99.1 F H 93 H 20 152/96 96 10/11/18 11:45 10/11/18 04:10 10/11/18 11:45 10/11/18 11:45 10/11/18 11:45 Period Temp Pulse Resp BP Sys/Archuleta Pulse Ox Last 24 Hr 98.4 F-100.2 F 90-103 14-20 138-158/76-96 89-96 Intake and Output 10/10/18 10/11/18 10/11/18 21:59 05:59 13:59 Intake Total 150 / 150 1150 / 1150 700 / 700 Output Total 325 / 325 565 / 565 275 / 275 Balance -175 / -175 585 / 585 425 / 425 Weight 115.666 kg Intake & Output: Intake & Output 10/10/18 10/11/18 10/11/18 21:59 05:59 13:59 Intake Total 150 / 150 1150 / 1150 700 / 700 Output Total 325 / 325 565 / 565 275 / 275 Balance -175 / -175 585 / 585 425 / 425 Weight 115.666 kg Intake: IV 150 / 150 1150 / 1150 700 / 700 Lactated Ringers 1,000 ml @ 75 1000 / 1000 mls/hr IV .[id number] [facility] Rx#: [id number] Zosyn 3.375 gm In Dextrose 5% 50 / 50 50 / 50 100 / 100 in Water 50 ml @ 100 mls/hr IV Q6H [facility] Rx#:[id number] Output: Gastric Drainage 250 / 250 Left Nare 250 / 250 Drainage 15 / 15 Pigtail 15 / 15 Urine Catheter Amount 325 / 325 Void Amount 300 / 300 275 / 275 Other: Urine Appearance Clear Cloudy Cloudy Urine Color Bright Yellow Dark Yellow Dark Yellow Urine Odor Normal Stool Size Smear Stool Color Brown Exam: General: Alert, Awake, No acute Distress Eyes/N/T: EOMI, Head/Neck: neck supple, CV: RRR, No murmurs, Pulm: Clear b/l, no wheezing/rhonchi/rales Abd: soft, tender, +BS x4 Ext: no clubbing/cyanosis/edema Neuro: Alert, no focal deficits, moves all extremities, Skin: warm/dry Medical - PN: Obj Da - Labs CBC & Chem 7: 10/11/18 04:05 10/11/18 04:05 Labs: Abnormal Lab Results 10/11/18 10/11/18 10/10/18 04:05 04:05 07:53 WBC RBC 3.30 L Hgb 8.7 L Hct 26.4 L MCV MCH RDW 15.5 H Plt Count MPV 7.3 L Gran % Lymph % (Auto) Gran # Lymph # (Auto) 1.2 L [place] # (Auto) VBG Lactic Acid Chloride Anion Gap Glucose 174 H Hemoglobin A1c Calcium 7.8 L Magnesium Albumin Triglycerides TSH Urine Glucose (UA) Urine Ketones Vancomycin Trough 23.9 H* 10/10/18 10/10/18 10/09/18 04:00 04:00 04:15 WBC RBC 3.48 L Hgb 9.0 L Hct 27.9 L MCV MCH 25.8 L RDW 16.1 H Plt Count MPV Gran % 82.7 H Lymph % (Auto) 12.6 L Gran # Lymph # (Auto) 1.1 L [place] # (Auto) VBG Lactic Acid Chloride Anion Gap Glucose 199 H Hemoglobin A1c Calcium 8.0 L Magnesium Albumin Triglycerides TSH 0.17 L Urine Glucose (UA) Urine Ketones Vancomycin Trough 10/09/18 10/09/18 10/09/18 04:15 04:15 00:15 WBC 15.7 H RBC 3.83 L Hgb 10.1 L Hct 30.8 L MCV MCH RDW 15.6 H Plt Count MPV Gran % 82.5 H Lymph % (Auto) 10.5 L Gran # 12.9 H Lymph # (Auto) [place] # (Auto) VBG Lactic Acid Chloride 94 L Anion Gap Glucose 177 H Hemoglobin A1c 8.3 H Calcium Magnesium 1.4 L Albumin 3.0 L Triglycerides 499 H TSH Urine Glucose (UA) 150 A Urine Ketones 5/tr A Vancomycin Trough 10/08/18 10/08/18 10/08/18 17:16 17:16 17:16 WBC 14.3 H RBC Hgb 11.0 L Hct 34.2 L MCV 79.7 L MCH 25.5 L RDW 15.7 H Plt Count 458 H MPV Gran % Lymph % (Auto) Gran # 10.5 H Lymph # (Auto) [place] # (Auto) 1.0 H VBG Lactic Acid 2.4 H Chloride 95 L Anion Gap 17.0 H Glucose 272 H Hemoglobin A1c Calcium Magnesium Albumin Triglycerides TSH Urine Glucose (UA) Urine Ketones Vancomycin Trough Meds: Medications Benzocaine (Cetacaine) 1 spray TOPICAL PRN PRN PRN Reason: throat pain Last Admin: 10/11/18 10:56 Dose: 1 spray Dextrose (Dextrose 50%) 0 ml IV UD PRN PRN Reason: Hypoglycemia Diagnostic Test (Pha) (Accu-Chek) 1 each FS Q6 [facility] Last Admin: 10/11/18 11:29 Dose: 1 each Enoxaparin Sodium (Lovenox) 40 mg SQ DAILY [facility] Stop: 10/18/18 22:59 Last Admin: 10/11/18 09:01 Dose: 40 mg Hydralazine HCl (Apresoline) 10 mg IV Q4-6HP PRN PRN Reason: Hypertension Hydromorphone HCl (Dilaudid) 0.5 - 1 mg IV Q2HP PRN PRN Reason: PAIN LEVEL > 6 Last Admin: 10/11/18 10:57 Dose: 0.5 mg Piperacillin Sod/Tazobactam (Sod 3.375 gm/ Dextrose) 50 mls @ 100 mls/hr IV Q6H [facility] Last Infusion: 10/11/18 12:40 Dose: Infused Acetaminophen (Ofirmev) 1,000 mg in 100 mls @ 200 mls/hr IV Q6HP PRN PRN Reason: Pain/Fever. Last Infusion: 10/11/18 12:31 Dose: Infused Lactated Ringer's (Lactated Ringers) 1,000 mls @ 100 mls/hr IV .Q10H [facility] Insulin Human Lispro (Humalog) 0 unit SQ Q6 [facility]; Protocol Last Admin: 10/11/18 11:56 Dose: 1 unit Methylprednisolone Sodium Succinate (Solu-Medrol) 20 mg IV DAILY [facility] Last Admin: 10/11/18 11:56 Dose: 20 mg Pantoprazole Sodium (Protonix) 40 mg IV BIDAC [facility] Last Admin: 10/11/18 07:29 Dose: 40 mg Promethazine HCl (Phenergan) 12.5 mg IV Q4HP PRN PRN Reason: Nausea And Vomiting Last Admin: 10/11/18 09:25 Dose: 12.5 mg Sodium Biphosphate/Sodium Phosphate (Fleets Adult) 1 dose [place] DAILY [facility] Last Admin: 10/11/18 10:36 Dose: 1 dose Sodium Chloride (Saline Flush) 10 ml IV Q8 [facility] Last Admin: 10/11/18 05:50 Dose: 10 ml Vancomycin HCl (Vancomycin Per Pharmacy) 1 order IV UD [facility] Medical - PN: A/P - Time Spent With Patient Total time spent is greater than 50% in coordination of care (as documented) at patient's floor/unit and/or counseling patient: - Narrative A/P Narrative: A/P *Bowel obstruction: NG in place, Management per surgery. *Ant Abdominal wall abcess: Noted on CT, drain placed by radiology, still has a 6cm lesion, on vanco and zosyn for now, cultures neg so far , Mangement per surgery. *Weakness/TAcycardia/Dizziness: Pt condition improved, Does have intermittent tachycardia, but HR now much better, *DM - SSI for glucose management *Myasthenia Gravis- on po prednisone 20 am at baseline, was on hydrocortisone 100q8, will switch to IV solumedrol from now. *Hypocalcemia: Due to hypoparathyroidsim/polyglandular syndrome, Was supposed to be on calcium supplements and calcitriol, calcium is ok on admit, but anticipate that it will drop as pt remains NPO. Tico is 7.8 *Hypomagnesemia- replace *Hypertension- BP elevated due to pain/ acute condition, treat underlying condition, if BP goes up too high, will give some hydralazine to help. BP is stable now. *ppxL enoxaparin Medical - PN: Qual - VTE Deep Vein Thrombosis/Pulmonary Embolism Present on Admission: No
[2018-10-12] MEDS: BENZOCAINE 1 SPRAY BOTTLE TOPICAL PRN ×3 (00:01→21:53)
[2018-10-12] MEDS: HYDROmorphone 2 MG/ML VIAL IV PRN ×8 (00:02→22:06)
[2018-10-12] MEDS: PIPERACILLIN SODIUM/TAZOBACTAM 3.375 GM in DEXTROSE 5% IN WATER 50 ML IV SCH ×4 (00:10→17:40)
[2018-10-12] MEDS: PROMETHAZINE 25 MG/ML VIAL IV PRN ×2 (03:51→13:36)
[2018-10-12 05:42] LABS: Blood Urea Nitrogen 9 mg/dl (6-20)
[2018-10-12] MEDS: 0.9 % SODIUM CHLORIDE 10 ML SYRINGE IV SCH ×3 (05:52→21:52)
[2018-10-12] MEDS: INSULIN LISPRO 1 UNIT/0.01 ML UNIT SQ SCH ×3 (05:52→17:20)
[2018-10-12] MEDS ORDERED: hydrALAZINE 20 MG/ML VIAL IV PRN (06:54)
--- NOTE | 2018-10-12 06:54 | Internal Med Progress Note ---
Medical - PN: Subj Patient information: Note initiated : 10/12/18 at 6:49 am Service Date, if different from initiated Date: [] Patient: Dayanna Stephens a 57 y/o F admitted on 10/08/18 for Abd pain. Chief Complaint: [] Interval history: Ms. Stephens is a 57 year old F with h/o recurrent bowel obstruction, multiple bowel surgeries presents to the hospital today for evaluation of abdominal pain. The patient had a last bowel surgery at the end of July, was seen by Dr. Currie she was doing well on oral laxative regimen. She had [address] after surgery that was still draining. On she noted that the drain on the right side stopped draining and she took it out. Left-sided drain is still in place. Since yesterday the patient has been complaining about abdominal pain not feeling well nausea vomiting and decreased output through the stoma. She therefore came to the emergency room for further management. The patient was evaluated by general surgery and admitted to the service. Medicine has been consulted for management of chronic medical issues. The patient has a history of morbid obesity, myasthenia gravis diabetes, hypoparathyroidism, hypocalcemia, polyglandular disease. The patient is on chronic high-dose steroids 20 mg of prednisone daily. After being admitted to the hospital the patient was given some enemas last night, around 3:30 AM it was noted that the patient was not feeling well, she was feeling more weak than before, dizzy had some headache and a heart rate was elevated in the 140s-150s. At baseline in the past the patient's heart rate has always been elevated. The patient was moved to telemetry, chest x-ray ordered labs blood culture ordered. There was a low-grade temperature 99.3 noted. ABG shows pH of 7.48 PCO2 45 PO2 72 on 2 L of oxygen lactic acid was 1.5. Chest x-ray is pending CT abdomen and pelvis done last night reviewed showed possible abscess in the anterior abdominal I tried to aspirate a sample of the abscess using a 1.5 inch 18-gauge needle with ultrasound guidance however I believe that was not able to reach the abscess. 10/10 Pt seen examined, no acute overnight issues, No major activity at colostomy, Still has abominal pain WBC trended down, NG in place, on broad spectrum abx Drained fluid from Ant abdominal wall, by Radiology still a pocket of 6cm abscess remains, to be drained by surgery. Cultures are negative so far. 10/11 Pt seen examined, still has some abdominal pain small smudge of stools no new complaints Labs stable, hemodynamically stable switch hydrocotisone to IV solumedrol 20mg 10/12 Slept well. No gas in ostomy. Had some nausea earlier but better now. Some abdominal discomfort but mild. Review of Systems: denies headache/fever/chills/nausea/vomiting/chest pain/cough/dyspnea/diarrhea. Otherwise see above. - Constitutional Vitals: Vital Signs Temp Pulse Resp BP Pulse Ox 98.6 F 87 10 L 165/90 98 10/12/18 03:32 10/12/18 03:32 10/12/18 03:32 10/12/18 03:32 10/12/18 03:32 Period Temp Pulse Resp BP Sys/Archuleta Pulse Ox Last 24 Hr 98.4 F-99.4 F 78-89 10-20 140-208/75-100 91-98 Intake and Output 10/11/18 10/12/18 10/12/18 21:59 05:59 13:59 Intake Total 100 / 100 150 / 150 50 / 50 Output Total 955 / 955 1540 / 1540 Balance -855 / -855 -1390 / -1390 50 / 50 Weight 113.398 kg Intake & Output: Intake & Output 10/11/18 10/12/18 10/12/18 21:59 05:59 13:59 Intake Total 100 / 100 150 / 150 50 / 50 Output Total 955 / 955 1540 / 1540 Balance -855 / -855 -1390 / -1390 50 / 50 Weight 113.398 kg Intake: IV 100 / 100 150 / 150 50 / 50 Zosyn 3.375 gm In Dextrose 5% 50 / 50 50 / 50 50 / 50 in Water 50 ml @ 100 mls/hr IV Q6H [facility] Rx#:[id number] Oral 0 / 0 0 / 0 Output: Gastric Drainage 400 / 400 475 / 475 Left Nare 400 / 400 475 / 475 Drainage Pigtail Void Amount 525 / 525 1050 / 1050 Stool 0 / 0 Other: Urine Appearance Clear Urine Color Bright Yellow Exam: General: Alert, Awake, No acute Distress, obese Eyes/N/T: EOMI, Head/Neck: neck supple, CV: RRR, No murmurs, Pulm: Clear b/l, no wheezing/rhonchi/rales Abd: soft, mild tenderness, decreased BS x4 Ext: no clubbing/cyanosis/edema Neuro: Alert, no focal deficits, moves all extremities, Skin: warm/dry Medical - PN: Obj Da - Labs CBC & Chem 7: 10/11/18 04:05 10/12/18 04:15 Labs: Abnormal Lab Results 10/12/18 10/11/18 10/11/18 04:15 04:05 04:05 RBC 3.30 L Hgb 8.7 L Hct 26.4 L MCH RDW 15.5 H MPV 7.3 L Gran % Lymph % (Auto) Lymph # (Auto) 1.2 L Glucose 107 H 174 H Calcium 7.2 L 7.8 L Vancomycin Trough 10/10/18 10/10/18 10/10/18 07:53 04:00 04:00 RBC 3.48 L Hgb 9.0 L Hct 27.9 L MCH 25.8 L RDW 16.1 H MPV Gran % 82.7 H Lymph % (Auto) 12.6 L Lymph # (Auto) 1.1 L Glucose 199 H Calcium 8.0 L Vancomycin Trough 23.9 H* Meds: Medications Benzocaine (Cetacaine) 1 spray TOPICAL PRN PRN PRN Reason: throat pain Last Admin: 10/12/18 05:53 Dose: 1 spray Dextrose (Dextrose 50%) 0 ml IV UD PRN PRN Reason: Hypoglycemia Diagnostic Test (Pha) (Accu-Chek) 1 each FS Q6 [facility] Last Admin: 10/12/18 05:52 Dose: 1 each Enoxaparin Sodium (Lovenox) 40 mg SQ DAILY [facility] Stop: 10/18/18 22:59 Last Admin: 10/11/18 09:01 Dose: 40 mg Hydralazine HCl (Apresoline) 10 mg IV Q4-6HP PRN PRN Reason: Hypertension Hydromorphone HCl (Dilaudid) 0.5 - 1 mg IV Q2HP PRN PRN Reason: PAIN LEVEL > 6 Last Admin: 10/12/18 03:27 Dose: 0.5 mg Piperacillin Sod/Tazobactam (Sod 3.375 gm/ Dextrose) 50 mls @ 100 mls/hr IV Q6H [facility] Last Infusion: 10/12/18 06:40 Dose: Infused Acetaminophen (Ofirmev) 1,000 mg in 100 mls @ 200 mls/hr IV Q6HP PRN PRN Reason: Pain/Fever. Last Infusion: 10/11/18 22:20 Dose: Infused Lactated Ringer's (Lactated Ringers) 1,000 mls @ 100 mls/hr IV .Q10H [facility] Last Admin: 10/11/18 20:51 Dose: 100 mls/hr Insulin Human Lispro (Humalog) 0 unit SQ Q6 [facility]; Protocol Last Admin: 10/12/18 05:52 Dose: Not Given Methylprednisolone Sodium Succinate (Solu-Medrol) 20 mg IV DAILY [facility] Last Admin: 10/11/18 11:56 Dose: 20 mg Pantoprazole Sodium (Protonix) 40 mg IV BIDAC [facility] Last Admin: 10/11/18 16:32 Dose: 40 mg Promethazine HCl (Phenergan) 12.5 mg IV Q4HP PRN PRN Reason: Nausea And Vomiting Last Admin: 10/12/18 03:51 Dose: 12.5 mg Sodium Biphosphate/Sodium Phosphate (Fleets Adult) 1 dose DC DAILY [facility] Last Admin: 10/11/18 10:36 Dose: 1 dose Sodium Chloride (Saline Flush) 10 ml IV Q8 [facility] Last Admin: 10/12/18 05:52 Dose: 10 ml Vancomycin HCl (Vancomycin Per Pharmacy) 1 order IV [facility] [place] Medical - PN: A/P - Time Spent With Patient Total time spent is greater than 50% in coordination of care (as documented) at patient's floor/unit and/or counseling patient: - Narrative A/P Narrative: A/P *Bowel obstruction: NG in place, Management per surgery. *Ant Abdominal wall abcess: Noted on CT, drain placed by radiology, still has a 6cm lesion, on vanco and zosyn for now, cultures neg so far , Mangement per surgery. *Weakness/TAcycardia/Dizziness: Pt condition improved, Does have intermittent tachycardia, but HR now much better, *DM: SSI for glucose management *Myasthenia Gravis: on po prednisone 20 am at baseline, was on hydrocortisone 100q8, now switched to IV solumedrol 20mg. *Hypocalcemia: Due to hypoparathyroidsim/polyglandular syndrome, Was supposed to be on calcium supplements and calcitriol, calcium is ok on admit, but anticipate that it will drop as pt remains NPO. Tico is 7.8 *Hypomagnesemia- replace *Hypertension-:BP elevated due to pain/ acute condition, treat underlying condition, if BP goes up too high, will give some hydralazine to help. BP is stable now. *ppx: enoxaparin Medical - PN: Qual - VTE Deep Vein Thrombosis/Pulmonary Embolism Present on Admission: No
[2018-10-12] MEDS: PANTOPRAZOLE 40 MG VIAL IV SCH ×2 (07:13→17:14)
[2018-10-12] MEDS ORDERED: CALCIUM GLUCONATE 4.65 MEQ in DEXTROSE 5% IN WATER 50 ML IV ONE (08:00)
--- NOTE | 2018-10-12 08:01 | XRay Report ---
CLINICAL INFORMATION: Follow-up small bowel obstruction COMPARISON: 10/08/2018 FINDINGS: The stomach with multiple loops of small bowel in the midabdomen are mildly dilated with decompressed distal small bowel and colon. No gross free air. Pigtail catheter overlies the left midabdomen within a anterior abdominal wall fluid collection IMPRESSION: Mild improvement in partial mid small bowel obstruction Interpreted and Authenticated by: All Lundberg 10/12/18
[2018-10-12] MEDS: methylPREDNISolone SOD SUCC 40 MG/ML VIAL IV SCH (08:48)
[2018-10-12] MEDS ORDERED: VANCOMYCIN 1,500 MG in 0.9 % SODIUM CHLORIDE 500 ML IV SCH (09:00)
[2018-10-12 09:13] LABS: Vancomycin,Random 9.9 ug/mL
[2018-10-12] MEDS: LACTATED RINGERS 1,000 ML IV SCH (09:52)
[2018-10-12] MEDS: ENOXAPARIN 40 MG/0.4 ML SYRINGE SQ SCH (09:54)
[2018-10-12] MEDS: FLEETS ADULT ENEMA PR SCH (09:54)
--- NOTE | 2018-10-12 12:01 | General Surgery Progress Note ---
Subjective Patient reports: no new complaints (Patient seen at bedside. NG tube in place with bilious output. No current abdominal pain. No ostomy output overnight. IR drain with minimal serous output. No events reported.) Narrative: Note initiated : 10/12/18 at 11:56 am Service Date, if different from initiated Date: [] Patient: Dayanna Stephens 57 y/o F admitted on 10/08/18 for Abd pain. Chief Complaint: [] Pertinent ROS: No N/V/D, No F/C/NS, No SOB or CP, No abdominal pain currently Objective Temp Pulse Resp BP Pulse Ox 98.2 F 81 14 121/65 95 10/12/18 07:33 10/12/18 07:33 10/12/18 07:33 10/12/18 07:33 10/12/18 07:33 - Additional Data Intake & Output - Last 24 hours: Intake & Output 10/10/18 10/11/18 10/12/18 10/13/18 05:59 05:59 05:59 05:59 Intake Total 6500 / 6500 2577 / 2577 1687 / 1687 1050 / 1050 Output Total 3211 / 3211 906 / 906 2770 / 2770 Balance 3289 / 3289 1671 / 1671 -1083 / -1083 1050 / 1050 Weight 249 lb 3.2 oz 255 lb 250 lb - General physical appearance no distress - Eyes normal ocular movement - ENT normal mucosa - Neck trachea midline - Respiratory clear to auscultation - Cardiovascular Cardiovascular exam: Present: normal rate and rhythm - Abdomen soft, non tender (ND, No Rebound or guarding. IR drain site no erythema) - Additional Exam LE No tenderness to palpation B/L - Labs 10/11/18 04:05 10/12/18 04:15 Diabetes panel 10/12/18 Range/Units 04:15 Sodium 140 (133-145) mmol/L Potassium 3.5 (3.3-5.1) mmol/L Chloride 101 (96-108) mmol/L Carbon Dioxide 24 (22-30) mmol/L BUN 9 (6-20) mg/dl Creatinine 0.8 (0.6-1.1) mg/dl Glucose 107 H (70-105) mg/dL Calcium 7.2 L (8.6-10.4) mg/dl Calcium panel 10/12/18 Range/Units 04:15 Calcium 7.2 L (8.6-10.4) mg/dl Phosphorus 3.4 (2.7-4.5) mg/dL Pituitary panel 10/12/18 Range/Units 04:15 Sodium 140 (133-145) mmol/L Potassium 3.5 (3.3-5.1) mmol/L Chloride 101 (96-108) mmol/L Carbon Dioxide 24 (22-30) mmol/L BUN 9 (6-20) mg/dl Creatinine 0.8 (0.6-1.1) mg/dl Glucose 107 H (70-105) mg/dL Calcium 7.2 L (8.6-10.4) mg/dl Adrenal panel 10/12/18 Range/Units 04:15 Sodium 140 (133-145) mmol/L Potassium 3.5 (3.3-5.1) mmol/L Chloride 101 (96-108) mmol/L Carbon Dioxide 24 (22-30) mmol/L BUN 9 (6-20) mg/dl Creatinine 0.8 (0.6-1.1) mg/dl Glucose 107 H (70-105) mg/dL Calcium 7.2 L (8.6-10.4) mg/dl Assessment and Plan (1) Small bowel obstruction Status: Acute Current Visit: Yes (2) Fecal impaction Status: Acute Current Visit: Yes - Narrative A/P Narrative: 57yo female with multiple medical problems with small bowel obstruction vs atonic bowel Continue NPO with serial exams Upper Gi series today NG tube to LWS IV fluids Abx & Steroids Dvt prophylaxis continue IR drain. Fleet enemas via stoma Hospitalist on case appreciated. Will replace electrolytes PRN Pt eval & treat, OOB to chair - Time Spent With Patient Total time spent is greater than 50% in coordination of care (as documented) at patient's floor/unit and/or counseling patient:
[2018-10-12] MEDS: POTASSIUM PHOSPHATE 20 MEQ in DEXTROSE 5% IN WATER 250 ML IV SCH ×2 (13:46→21:47)
[2018-10-12] MEDS: DEXTROSE 5%-1/2NS W/20MEQ KCL 1,000 ML IV SCH (16:04)
[2018-10-12] MEDS: ERYTHROMYCIN BASE 250 MG TABLET PO SCH (17:40)
[2018-10-12] MEDS ORDERED: METOCLOPRAMIDE 10 MG/2 ML VIAL IV SCH (18:00)
--- NOTE | 2018-10-12 18:27 | XRay Report ---
CLINICAL INFORMATION: small bowel obstruction TECHNIQUE: Following terrazzo polisher helper images, and water-soluble contrast was administered ministered via indwelling NG tube and multiple films were obtained over five hours FINDINGS: The stomach, duodenum and jejunum are moderately dilated. There is abrupt transition into decompressed ileum in the right midabdomen ostensibly related to adhesion or stricture. The distal small bowel and colon are relatively decompressed. IMPRESSION: High-grade partial small bowel obstruction within the ileum in the right midabdomen due to adhesion or stricture. Small bowel transit time is delayed approximately five hours Interpreted and Authenticated by: All Lundberg 10/12/18
[2018-10-13] MEDS: HYDROmorphone 2 MG/ML VIAL IV PRN ×9 (00:24→23:36)
[2018-10-13] MEDS: PIPERACILLIN SODIUM/TAZOBACTAM 3.375 GM in DEXTROSE 5% IN WATER 50 ML IV SCH ×2 (00:27→05:29)
[2018-10-13] MEDS: BENZOCAINE 1 SPRAY BOTTLE TOPICAL PRN ×5 (00:34→21:44)
[2018-10-13] MEDS: INSULIN LISPRO 1 UNIT/0.01 ML UNIT SQ SCH ×5 (00:42→23:36)
[2018-10-13] MEDS: DEXTROSE 5%-1/2NS W/20MEQ KCL 1,000 ML IV SCH ×5 (01:07→22:30)
[2018-10-13] MEDS: 0.9 % SODIUM CHLORIDE 10 ML SYRINGE IV SCH ×4 (05:45→20:47)
[2018-10-13 06:02] LABS: Basophils # (Auto) 0 K/mcL (0.0-0.3); Basophils % (Auto) 0.5 % (0.0-2.0); Eosinophils # (Auto) 0.2 K/mcL (0.0-0.7); Granulocytes % (Auto) 56.3 % (38.0-78.0); Lymphocytes # (Auto) 2.5 K/mcL (1.5-4.8); Lymphocytes % (Auto) 27.3 % (15.5-49.0); Mean Cell Volume 79.7 fL (80.0-100.0); Monocytes # (Auto) 1.3 K/mcL (0.1-0.9); Monocytes % (Auto) 13.9 % (1.0-12.0); Platelet Count 410 K/mcL (140-440); RBC 4.06 M/mcL (4.00-5.20); Red Cell Distribution Width 15.6 % (11.5-14.5)
[2018-10-13 06:42] LABS: Blood Urea Nitrogen 9 mg/dl (6-20)
--- NOTE | 2018-10-13 06:55 | Internal Med Progress Note ---
Medical - PN: Subj Patient information: Note initiated : 10/13/18 at 6:52 am Service Date, if different from initiated Date: [] Patient: Dayanna Stephens a 57 y/o F admitted on 10/08/18 for Abd pain. Chief Complaint: [] Interval history: Ms. Stephens is a 57 year old F with h/o recurrent bowel obstruction, multiple bowel surgeries presents to the hospital today for evaluation of abdominal pain. The patient had a last bowel surgery at the end of July, was seen by Dr. Currie she was doing well on oral laxative regimen. She had [address] after surgery that was still draining. On she noted that the drain on the right side stopped draining and she took it out. Left-sided drain is still in place. Since yesterday the patient has been complaining about abdominal pain not feeling well nausea vomiting and decreased output through the stoma. She therefore came to the emergency room for further management. The patient was evaluated by general surgery and admitted to the service. Medicine has been consulted for management of chronic medical issues. The patient has a history of morbid obesity, myasthenia gravis diabetes, hypoparathyroidism, hypocalcemia, polyglandular disease. The patient is on chronic high-dose steroids 20 mg of prednisone daily. After being admitted to the hospital the patient was given some enemas last night, around 3:30 AM it was noted that the patient was not feeling well, she was feeling more weak than before, dizzy had some headache and a heart rate was elevated in the 140s-150s. At baseline in the past the patient's heart rate has always been elevated. The patient was moved to telemetry, chest x-ray ordered labs blood culture ordered. There was a low-grade temperature 99.3 noted. ABG shows pH of 7.48 PCO2 45 PO2 72 on 2 L of oxygen lactic acid was 1.5. Chest x-ray is pending CT abdomen and pelvis done last night reviewed showed possible abscess in the anterior abdominal I tried to aspirate a sample of the abscess using a 1.5 inch 18-gauge needle with ultrasound guidance however I believe that was not able to reach the abscess. 10/10 Pt seen examined, no acute overnight issues, No major activity at colostomy, Still has abominal pain WBC trended down, NG in place, on broad spectrum abx Drained fluid from Ant abdominal wall, by Radiology still a pocket of 6cm abscess remains, to be drained by surgery. Cultures are negative so far. 10/11 Pt seen examined, still has some abdominal pain small smudge of stools no new complaints Labs stable, hemodynamically stable switch hydrocotisone to IV solumedrol 20mg 10/12 Slept well. No gas in ostomy. Had some nausea earlier but better now. Some abdominal discomfort but mild. 10/13 Had some nausea and retching this morning. Otherwise no complaints. She is having stool output in her ostomy. Review of Systems: denies headache/fever/chills/chest pain/cough/dyspnea/diarrhea. Otherwise see above. - Constitutional Vitals: Vital Signs Temp Pulse Resp BP Pulse Ox 99.5 F H 74 12 138/82 97 10/13/18 04:04 10/13/18 04:04 10/13/18 04:04 10/13/18 04:04 10/13/18 04:04 Period Temp Pulse Resp BP Sys/Archuleta Pulse Ox Last 24 Hr 98.2 F-99.5 F 74-94 12-14 121-158/65-88 91-97 Intake and Output 10/12/18 10/13/18 10/13/18 21:59 05:59 13:59 Intake Total 1321.5455 / 1321.5455 577.5455 / 577.5455 50 / 50 Output Total 1225 / 1225 1650 / 1650 Balance 96.5455 / 96.5455 -1072.4545 / -1072.4545 50 Weight 111.357 kg Intake & Output: Intake & Output 10/12/18 10/13/18 10/13/18 21:59 05:59 13:59 Intake Total 1321.5455 / 1321.5455 577.5455 / 577.5455 50 50 Output Total 1225 / 1225 1650 / 1650 Balance 96.5455 / 96.5455 -1072.4545 / -1072.4545 50 / 50 Weight 111.357 kg Intake: IV 1231.5455 / 1231.5455 577.5455 / 577.5455 50 / 50 Dextrose 5%-1/2Ns W/20Meq KCl 1 727 / 727 273 / 273 ,000 ml @ 125 mls/hr IV .Q8H [facility] Rx#:[id number] Zosyn 3.375 gm In Dextrose 5% 50 / 50 50 / 50 50 / 50 in Water 50 ml @ 100 mls/hr IV Q6H [facility] Rx#:[id number] Potassium Phosphate 20 Meq In 254.5455 / 254.5455 Dextrose 5% in Water 250 ml @ 127.273 mls/hr IV BID [facility] Rx#: [id number] Oral 90 / 90 Output: Gastric Drainage 1025 / 1025 800 / 800 Left Nare 1025 / 1025 800 / 800 Drainage 50 / 50 Pigtail 50 / 50 Void Amount 700 / 700 Stool 150 / 150 150 / 150 Other: Urine Appearance Clear Urine Color Bright Yellow Stool Size Small Stool Color Brown Brown Stool Consistency Loose Loose Exam: General: Alert, Awake, No acute Distress, obese Eyes/N/T: EOMI, Head/Neck: neck supple, CV: RRR, No murmurs, Pulm: Clear b/l, no wheezing/rhonchi/rales Abd: soft, mild tenderness, ostomy outpt Ext: no clubbing/cyanosis/edema Neuro: Alert, no focal deficits, moves all extremities, Skin: warm/dry Medical - PN: Obj Da - Labs CBC & Chem 7: 10/13/18 04:30 10/13/18 04:30 Labs: Abnormal Lab Results 10/13/18 10/13/18 10/12/18 04:30 04:30 04:15 RBC Hgb 10.4 L Hct 32.4 L MCV 79.7 L MCH 25.5 L RDW 15.6 H MPV 7.2 L Bent % (Auto) 13.9 H Lymph # (Auto) Bent # (Auto) 1.3 H Potassium 3.1 L Glucose 158 H 107 H Calcium 7.8 L 7.2 L Phosphorus 4.6 H Vancomycin Trough 10/11/18 10/11/18 10/10/18 04:05 04:05 07:53 RBC 3.30 L Hgb 8.7 L Hct 26.4 L MCV MCH RDW 15.5 H MPV 7.3 L Bent % (Auto) Lymph # (Auto) 1.2 L Bent # (Auto) Potassium Glucose 174 H Calcium 7.8 L Phosphorus Vancomycin Trough 23.9 H* Meds: Medications Benzocaine (Cetacaine) 1 spray TOPICAL PRN PRN PRN Reason: throat pain Last Admin: 10/13/18 04:02 Dose: 1 spray Dextrose (Dextrose 50%) 0 ml IV UD PRN PRN Reason: Hypoglycemia Diagnostic Test (Pha) (Accu-Chek) 1 each FS Q6 [facility] Last Admin: 10/13/18 05:36 Dose: 1 each Enoxaparin Sodium (Lovenox) 40 mg SQ DAILY [facility] Stop: 10/18/18 22:59 Last Admin: 10/12/18 09:54 Dose: 40 mg Erythromycin (Erythromycin) 250 mg PO TIDAC [facility] Last Admin: 10/12/18 17:40 Dose: 250 mg Hydralazine HCl (Apresoline) 0 mg IV Q2HP PRN PRN Reason: Hypertension Hydromorphone HCl (Dilaudid) 0.5 - 1 mg IV Q2HP PRN PRN Reason: PAIN LEVEL > 6 Last Admin: 10/13/18 03:55 Dose: 0.5 mg Piperacillin Sod/Tazobactam (Sod 3.375 gm/ Dextrose) 50 mls @ 100 mls/hr IV Q6H [facility] Last Infusion: 10/13/18 06:28 Dose: Infused Acetaminophen (Ofirmev) 1,000 mg in 100 mls @ 200 mls/hr IV Q6HP PRN PRN Reason: Pain/Fever. Last Infusion: 10/11/18 22:20 Dose: Infused Potassium Chloride/Dextrose/Sod Cl (Dextrose 5%-1/2ns W/20meq Kcl) 1,000 mls @ 125 mls/hr IV .Q8H [facility] Last Admin: 10/13/18 06:28 Dose: 125 mls/hr Insulin Human Lispro (Humalog) 0 unit SQ Q6 [facility]; Protocol Last Admin: 10/13/18 05:45 Dose: 1 unit Methylprednisolone Sodium Succinate (Solu-Medrol) 20 mg IV DAILY [facility] Last Admin: 10/12/18 08:48 Dose: 20 mg Pantoprazole Sodium (Protonix) 40 mg IV BIDAC [facility] Last Admin: 10/12/18 17:14 Dose: 40 mg Promethazine HCl (Phenergan) 12.5 mg IV Q4HP PRN PRN Reason: Nausea And Vomiting Last Admin: 10/12/18 13:36 Dose: 12.5 mg Sodium Biphosphate/Sodium Phosphate (Fleets Adult) 1 dose DE DAILY [facility] Last Admin: 10/12/18 09:54 Dose: 1 dose Sodium Chloride (Saline Flush) 10 ml IV Q8 [facility] Last Admin: 10/13/18 05:45 Dose: 10 ml Medical - PN: A/P - Time Spent With Patient Total time spent is greater than 50% in coordination of care (as documented) at patient's floor/unit and/or counseling patient: - Narrative A/P Narrative: A/P *SBO vs Adynamic ileus: NG in place, Management per surgery. Improving *Ant Abdominal wall seroma: Noted on CT, drain placed by radiology, still has a 6cm lesion, cultures neg so far , Mangement per surgery. *Weakness/TAcycardia/Dizziness: Pt condition improved, Does have intermittent tachycardia, but HR now much better, *DM: SSI for glucose management *Myasthenia Gravis: on po prednisone 20 am at baseline, was on hydrocortisone 100q8, now switched to IV solumedrol 20mg. *Hypocalcemia: Due to hypoparathyroidsim/polyglandular syndrome, Was supposed to be on calcium supplements and calcitriol, replete calcium prn *Hypomagnesemia: replace prn *Hypertension:BP elevated due to pain/ acute condition, treat underlying condition, if BP goes up too high, will give some hydralazine to help. BP is stable now. *ppx: enoxaparin Medical - PN: Qual - VTE Deep Vein Thrombosis/Pulmonary Embolism Present on Admission: No
[2018-10-13] MEDS: PANTOPRAZOLE 40 MG VIAL IV SCH ×2 (07:09→17:08)
[2018-10-13] MEDS ORDERED: POTASSIUM CHLORIDE 40 MEQ in DEXTROSE 5% IN WATER 500 ML IV ONE (07:30)
[2018-10-13] MEDS: PROMETHAZINE 25 MG/ML VIAL IV PRN (07:44)
[2018-10-13] MEDS: ERYTHROMYCIN BASE 250 MG TABLET PO SCH ×3 (07:48→17:06)
[2018-10-13] MEDS: methylPREDNISolone SOD SUCC 40 MG/ML VIAL IV SCH (09:04)
[2018-10-13] MEDS: ENOXAPARIN 40 MG/0.4 ML SYRINGE SQ SCH (09:07)
[2018-10-13] MEDS: FLEETS ADULT ENEMA PR SCH (10:55)
--- NOTE | 2018-10-13 11:22 | General Surgery Progress Note ---
Subjective Patient reports: nausea (Patient seen at bedside. States had episode of nausea earlier today. Ostomy began functioning earlier this am with formed stool. Abdominal discomfort decreased from yesterday) Narrative: Note initiated : 10/13/18 at 11:18 am Service Date, if different from initiated Date: [] Patient: Dayanna Stephens 57 y/o F admitted on 10/08/18 for Abd pain. Chief Complaint: [] Pertinent ROS: + Nausea. No vomiting. No F/C/NS, NO SOB or CP Objective Temp Pulse Resp BP Pulse Ox 98.6 F 74 20 143/68 94 10/13/18 11:10 10/13/18 04:04 10/13/18 11:10 10/13/18 11:10 10/13/18 11:10 - Additional Data Intake & Output - Last 24 hours: Intake & Output 10/11/18 10/12/18 10/13/18 10/14/18 05:59 05:59 05:59 05:59 Intake Total 2577 / 2577 1687 / 1687 4039.0910 / 4039.0910 50 / 50 Output Total 906 / 906 2770 / 2770 3425 / 3425 775 / 775 Balance 1671 / 1671 -1083 / -7351 954.6677 / 614.0910 -725 / -725 Weight 255 lb 250 lb 245 lb 8 oz - General physical appearance well developed, well nourished, no distress - Eyes normal ocular movement - ENT normal mucosa - Neck trachea midline - Respiratory clear to auscultation - Cardiovascular Cardiovascular exam: Present: normal rate and rhythm - Abdomen soft (Soft, NTTP, No rebound or guarding. IR drain inplace no erythema, serous output minimal. ostomy pink, soft stool in bag) - Psychiatric oriented to time, oriented to person, oriented to place - Labs 10/13/18 04:30 10/13/18 04:30 Diabetes panel 10/13/18 Range/Units 04:30 Sodium 141 (133-145) mmol/L Potassium 3.1 L (3.3-5.1) mmol/L Chloride 97 (96-108) mmol/L Carbon Dioxide 28 (22-30) mmol/L BUN 9 (6-20) mg/dl Creatinine 0.8 (0.6-1.1) mg/dl Glucose 158 H (70-105) mg/dL Calcium 7.8 L (8.6-10.4) mg/dl Calcium panel 10/13/18 Range/Units 04:30 Calcium 7.8 L (8.6-10.4) mg/dl Phosphorus 4.6 H (2.7-4.5) mg/dL Pituitary panel 10/13/18 Range/Units 04:30 Sodium 141 (133-145) mmol/L Potassium 3.1 L (3.3-5.1) mmol/L Chloride 97 (96-108) mmol/L Carbon Dioxide 28 (22-30) mmol/L BUN 9 (6-20) mg/dl Creatinine 0.8 (0.6-1.1) mg/dl Glucose 158 H (70-105) mg/dL Calcium 7.8 L (8.6-10.4) mg/dl Adrenal panel 10/13/18 Range/Units 04:30 Sodium 141 (133-145) mmol/L Potassium 3.1 L (3.3-5.1) mmol/L Chloride 97 (96-108) mmol/L Carbon Dioxide 28 (22-30) mmol/L BUN 9 (6-20) mg/dl Creatinine 0.8 (0.6-1.1) mg/dl Glucose 158 H (70-105) mg/dL Calcium 7.8 L (8.6-10.4) mg/dl - Imaging Abdominal x-ray: image reviewed (MPRESSION: High grade partial small bowel obstruction) Assessment and Plan (1) Small bowel obstruction Status: Acute Current Visit: Yes (2) Fecal impaction Status: Acute Current Visit: Yes - Narrative A/P Narrative: 57yo female with multiple medical problems with partial small bowel obstruction vs atonic bowel resolving Ostomy began to have output Continue erythromycin PO NG tube to LWS clamp later today Sips of clears IV fluids Abx & Steroids Dvt prophylaxis continue IR drain. Fleet enemas via stoma Hospitalist on case appreciated. Will replace electrolytes PRN Pt eval & treat, OOB to chair - Time Spent With Patient Total time spent is greater than 50% in coordination of care (as documented) at patient's floor/unit and/or counseling patient:
[2018-10-13] MEDS ORDERED: fentaNYL 100 MCG/2 ML VIAL IV ONE (13:47)
[2018-10-13] MEDS ORDERED: MIDAZOLAM 2 MG/2 ML VIAL IV ONE (13:47)
[2018-10-14] MEDS: DEXTROSE 5%-1/2NS W/20MEQ KCL 1,000 ML IV SCH ×4 (03:13→19:17)
[2018-10-14] MEDS: HYDROmorphone 2 MG/ML VIAL IV PRN ×7 (03:13→21:50)
[2018-10-14] MEDS: ACETAMINOPHEN 1,000 MG/100 ML BOTTLE IV PRN (03:36)
[2018-10-14] MEDS: 0.9 % SODIUM CHLORIDE 10 ML SYRINGE IV SCH ×3 (05:21→21:38)
[2018-10-14] MEDS: INSULIN LISPRO 1 UNIT/0.01 ML UNIT SQ SCH ×4 (05:30→20:38)
[2018-10-14 06:34] LABS: Blood Urea Nitrogen 4 mg/dl (6-20)
[2018-10-14] MEDS ORDERED: MAGNESIUM SULFATE 2 GM/50 ML BAG IV ONE (06:49)
[2018-10-14] MEDS ORDERED: CALCIUM GLUCONATE 4.65 MEQ/10 ML VIAL IV ONE (06:49)
--- NOTE | 2018-10-14 06:50 | Internal Med Progress Note ---
Medical - PN: Subj Patient information: Note initiated : 10/14/18 at 6:48 am Service Date, if different from initiated Date: [] Patient: Dayanna Stephens a 57 y/o F admitted on 10/08/18 for Abd pain. Chief Complaint: [] Interval history: Ms. Stephens is a 57 year old F with h/o recurrent bowel obstruction, multiple bowel surgeries presents to the hospital today for evaluation of abdominal pain. The patient had a last bowel surgery at the end of July, was seen by Dr. Currie she was doing well on oral laxative regimen. She had [address] after surgery that was still draining. On she noted that the drain on the right side stopped draining and she took it out. Left-sided drain is still in place. Since yesterday the patient has been complaining about abdominal pain not feeling well nausea vomiting and decreased output through the stoma. She therefore came to the emergency room for further management. The patient was evaluated by general surgery and admitted to the service. Medicine has been consulted for management of chronic medical issues. The patient has a history of morbid obesity, myasthenia gravis diabetes, hypoparathyroidism, hypocalcemia, polyglandular disease. The patient is on chronic high-dose steroids 20 mg of prednisone daily. After being admitted to the hospital the patient was given some enemas last night, around 3:30 AM it was noted that the patient was not feeling well, she was feeling more weak than before, dizzy had some headache and a heart rate was elevated in the 140s-150s. At baseline in the past the patient's heart rate has always been elevated. The patient was moved to telemetry, chest x-ray ordered labs blood culture ordered. There was a low-grade temperature 99.3 noted. ABG shows pH of 7.48 PCO2 45 PO2 72 on 2 L of oxygen lactic acid was 1.5. Chest x-ray is pending CT abdomen and pelvis done last night reviewed showed possible abscess in the anterior abdominal I tried to aspirate a sample of the abscess using a 1.5 inch 18-gauge needle with ultrasound guidance however I believe that was not able to reach the abscess. 10/10 Pt seen examined, no acute overnight issues, No major activity at colostomy, Still has abominal pain WBC trended down, NG in place, on broad spectrum abx Drained fluid from Ant abdominal wall, by Radiology still a pocket of 6cm abscess remains, to be drained by surgery. Cultures are negative so far. 10/11 Pt seen examined, still has some abdominal pain small smudge of stools no new complaints Labs stable, hemodynamically stable switch hydrocotisone to IV solumedrol 20mg 10/12 Slept well. No gas in ostomy. Had some nausea earlier but better now. Some abdominal discomfort but mild. 10/13 Had some nausea and retching this morning. Otherwise no complaints. She is having stool output in her ostomy. 10/14 Having output through her ostomy. Has headache. But otherwise no new complaints. NG in place, will be in place through today. Review of Systems: denies fever/chills/chest pain/cough/dyspnea/diarrhea. Otherwise see above. - Constitutional Vitals: Vital Signs Temp Pulse Resp BP Pulse Ox 98.2 F 91 H 10 L 130/80 95 10/14/18 03:23 10/14/18 03:23 10/14/18 03:23 10/14/18 03:23 10/14/18 03:23 Period Temp Pulse Resp BP Sys/Archuleta Pulse Ox Last 24 Hr 97.9 F-100.1 F 90-91 10-20 122-149/68-80 92-98 Intake and Output 10/13/18 10/14/18 10/14/18 21:59 05:59 13:59 Intake Total 1209 / 1209 1460 / 1460 Output Total 2825 / 2825 1625 / 1625 Balance -1616 / -1616 -165 / -165 Weight 110.45 kg Intake & Output: Intake & Output 10/13/18 10/14/18 10/14/18 21:59 05:59 13:59 Intake Total 1209 / 1209 1460 / 1460 Output Total 2825 / 2825 1625 / 1625 Balance -1616 / -1616 -165 / -165 Weight 110.45 kg Intake: IV 669 / 669 1100 / 1100 Dextrose 5%-1/2Ns W/20Meq KCl 1 669 / 669 1000 / 1000 ,000 ml @ 125 mls/hr IV .Q8H [facility] Rx#:[id number] Oral 540 / 540 360 / 360 Output: Gastric Drainage 300 / 300 100 / 100 Left Nare 300 / 300 100 / 100 Void Amount 1525 / 1525 1100 / 1100 Stool 1000 / 1000 425 / 425 Other: Meal applejuice Urine Appearance Clear Clear Urine Color Bright Yellow Bright Yellow Stool Size Small Small Stool Color Brown Brown Stool Consistency Liquid Liquid Exam: General: Alert, Awake, No acute Distress, obese Eyes/N/T: EOMI, Head/Neck: neck supple, CV: RRR, No murmurs, Pulm: Clear b/l, no wheezing/rhonchi/rales Abd: soft, mild tenderness, ostomy outpt Ext: no clubbing/cyanosis, trace b/l LE edema Neuro: Alert, no focal deficits, moves all extremities, Skin: warm/dry Medical - PN: Obj Da - Labs CBC & Chem 7: 10/13/18 04:30 10/14/18 04:45 Labs: Abnormal Lab Results 10/14/18 10/13/18 10/13/18 04:45 04:30 04:30 Hgb 10.4 L Hct 32.4 L MCV 79.7 L MCH 25.5 L RDW 15.6 H MPV 7.2 L [place] % (Auto) 13.9 H [place] # (Auto) 1.3 H Potassium 3.1 L BUN 4 L Glucose 125 H 158 H Calcium 6.8 L 7.8 L Phosphorus 4.6 H Magnesium 1.4 L 10/12/18 04:15 Hgb Hct MCV MCH RDW MPV [place] % (Auto) [place] # (Auto) Potassium BUN Glucose 107 H Calcium 7.2 L Phosphorus Magnesium Meds: Medications Benzocaine (Cetacaine) 1 spray TOPICAL PRN PRN PRN Reason: throat pain Last Admin: 10/13/18 21:44 Dose: 1 spray Dextrose (Dextrose 50%) 0 ml IV UD PRN PRN Reason: Hypoglycemia Diagnostic Test (Pha) (Accu-Chek) 1 each FS Q6 [facility] Last Admin: 10/14/18 05:28 Dose: 1 each Enoxaparin Sodium (Lovenox) 40 mg SQ DAILY [facility] Stop: 10/18/18 22:59 Last Admin: 10/13/18 09:07 Dose: 40 mg Erythromycin (Erythromycin) 250 mg PO TIDAC [facility] Last Admin: 10/13/18 17:06 Dose: 250 mg Hydralazine HCl (Apresoline) 0 mg IV Q2HP PRN PRN Reason: Hypertension Hydromorphone HCl (Dilaudid) 0.5 - 1 mg IV Q2HP PRN PRN Reason: PAIN LEVEL > 6 Last Admin: 10/14/18 03:13 Dose: 0.5 mg Acetaminophen (Ofirmev) 1,000 mg in 100 mls @ 200 mls/hr IV Q6HP PRN PRN Reason: Pain/Fever. Last Infusion: 10/14/18 04:10 Dose: Infused Potassium Chloride/Dextrose/Sod Cl (Dextrose 5%-1/2ns W/20meq Kcl) 1,000 mls @ 125 mls/hr IV .Q8H [facility] Last Admin: 10/14/18 03:13 Dose: 125 mls/hr Insulin Human Lispro (Humalog) 0 unit SQ Q6 [facility]; Protocol Last Admin: 10/14/18 05:30 Dose: Not Given Methylprednisolone Sodium Succinate (Solu-Medrol) 20 mg IV DAILY [facility] Last Admin: 10/13/18 09:04 Dose: 20 mg Pantoprazole Sodium (Protonix) 40 mg IV BIDAC [facility] Last Admin: 10/13/18 17:08 Dose: 40 mg Promethazine HCl (Phenergan) 12.5 mg IV Q4HP PRN PRN Reason: Nausea And Vomiting Last Admin: 10/13/18 07:44 Dose: 12.5 mg Sodium Biphosphate/Sodium Phosphate (Fleets Adult) 1 dose MS DAILY [facility] Last Admin: 10/13/18 10:55 Dose: Not Given Sodium Chloride (Saline Flush) 10 ml IV Q8 [facility] Last Admin: 10/14/18 05:21 Dose: Not Given Medical - PN: A/P - Time Spent With Patient Total time spent is greater than 50% in coordination of care (as documented) at patient's floor/unit and/or counseling patient: - Narrative A/P Narrative: A/P *SBO vs Adynamic ileus: NG in place, Management per surgery. Improving *Ant Abdominal wall seroma: Noted on CT, drain placed by radiology, still has a 6cm lesion, cultures neg so far , Mangement per surgery. *Weakness/TAcycardia/Dizziness: Pt condition improved, Does have intermittent tachycardia, but HR now much better, *DM: SSI for glucose management *Myasthenia Gravis: on po prednisone 20 am at baseline, was on hydrocortisone 100q8, now switched to IV solumedrol 20mg. *Hypocalcemia: Due to hypoparathyroidsim/polyglandular syndrome, Was supposed to be on calcium supplements and calcitriol, replete calcium prn *Hypomagnesemia: replace prn *Hypertension:BP elevated due to pain/ acute condition, treat underlying condition, if BP goes up too high, will give some hydralazine to help. BP is stable now. *ppx: enoxaparin Medical - PN: Qual - VTE Deep Vein Thrombosis/Pulmonary Embolism Present on Admission: No
[2018-10-14] MEDS ORDERED: CALCIUM GLUCONATE 9.3 MEQ in DEXTROSE 5% IN WATER 100 ML IV ONE (07:15)
[2018-10-14] MEDS: BENZOCAINE 1 SPRAY BOTTLE TOPICAL PRN ×5 (07:25→21:50)
[2018-10-14] MEDS: ERYTHROMYCIN BASE 250 MG TABLET PO SCH ×3 (07:26→17:00)
[2018-10-14] MEDS: PANTOPRAZOLE 40 MG VIAL IV SCH ×2 (07:28→16:59)
--- NOTE | 2018-10-14 07:56 | General Surgery Progress Note ---
Subjective Patient reports: no new complaints (Patient having soft BM's now with liquid bm' s, Pain diminished. No overnight events reported.) Narrative: Note initiated : 10/14/18 at 7:53 am Service Date, if different from initiated Date: [] Patient: Dayanna Stephens 57 y/o F admitted on 10/08/18 for Abd pain. Chief Complaint: [] Pertinent ROS: No N/V/D. No F/C/NS, No CP or SOB Objective Temp Pulse Resp BP Pulse Ox 97.8 F 93 H 16 134/80 95 10/14/18 07:34 10/14/18 07:34 10/14/18 07:34 10/14/18 07:34 10/14/18 07:34 - Additional Data Intake & Output - Last 24 hours: Intake & Output 10/12/18 10/13/18 10/14/18 10/15/18 05:59 05:59 05:59 05:59 Intake Total 1687 / 1687 4039.0910 / 4039.0910 4090 / 4090 Output Total 2770 / 2770 3425 / 3425 6075 / 6075 Balance -1083 / -9912 619.7456 / 614.0910 -1984 / Weight 250 lb 245 lb 8 oz 243 lb 8 oz - General physical appearance well developed, well nourished, no distress - Eyes normal ocular movement - ENT normal mucosa - Neck trachea midline - Respiratory clear to auscultation - Cardiovascular Cardiovascular exam: Present: normal rate and rhythm - Abdomen soft (ostomy with liquid output), non tender - Integumentary no rash - Neurologic normal sensation - Psychiatric oriented to time, oriented to person, oriented to place - Labs 10/13/18 04:30 10/14/18 04:45 Diabetes panel 10/14/18 Range/Units 04:45 Sodium 141 (133-145) mmol/L Potassium 3.4 (3.3-5.1) mmol/L Chloride 103 (96-108) mmol/L Carbon Dioxide 26 (22-30) mmol/L BUN 4 L (6-20) mg/dl Creatinine 0.7 (0.6-1.1) mg/dl Glucose 125 H (70-105) mg/dL Calcium 6.8 L (8.6-10.4) mg/dl Calcium panel 10/14/18 Range/Units 04:45 Calcium 6.8 L (8.6-10.4) mg/dl Phosphorus 3.3 (2.7-4.5) mg/dL Pituitary panel 10/14/18 Range/Units 04:45 Sodium 141 (133-145) mmol/L Potassium 3.4 (3.3-5.1) mmol/L Chloride 103 (96-108) mmol/L Carbon Dioxide 26 (22-30) mmol/L BUN 4 L (6-20) mg/dl Creatinine 0.7 (0.6-1.1) mg/dl Glucose 125 H (70-105) mg/dL Calcium 6.8 L (8.6-10.4) mg/dl Adrenal panel 10/14/18 Range/Units 04:45 Sodium 141 (133-145) mmol/L Potassium 3.4 (3.3-5.1) mmol/L Chloride 103 (96-108) mmol/L Carbon Dioxide 26 (22-30) mmol/L BUN 4 L (6-20) mg/dl Creatinine 0.7 (0.6-1.1) mg/dl Glucose 125 H (70-105) mg/dL Calcium 6.8 L (8.6-10.4) mg/dl Assessment and Plan (1) Small bowel obstruction Status: Acute Current Visit: Yes (2) Fecal impaction Status: Acute Current Visit: Yes - Narrative A/P Narrative: 57yo female with multiple medical problems with partial small bowel obstruction vs atonic bowel resolving Ostomy having output, went from formed to liquid stools. Continue erythromycin PO NG tube clamped clears liquids IV fluids Abx & Steroids Dvt prophylaxis continue IR drain. Fleet enemas via stoma Hospitalist on case appreciated. Will replace electrolytes PRN Pt eval & treat, OOB to chair - Time Spent With Patient Total time spent is greater than 50% in coordination of care (as documented) at patient's floor/unit and/or counseling patient:
[2018-10-14] MEDS: FLEETS ADULT ENEMA PR SCH (08:30)
[2018-10-14] MEDS: methylPREDNISolone SOD SUCC 40 MG/ML VIAL IV SCH (08:56)
[2018-10-14] MEDS: ENOXAPARIN 40 MG/0.4 ML SYRINGE SQ SCH (08:57)
[2018-10-14] MEDS: MAGNESIUM OXIDE 400 MG TABLET PO SCH ×2 (08:57→20:44)
[2018-10-14] MEDS: POLYETHYLENE GLYCOL 3350 17 GM PACKET PO SCH (20:44)
[2018-10-15] MEDS: DEXTROSE 5%-1/2NS W/20MEQ KCL 1,000 ML IV SCH ×2 (01:11→07:24)
[2018-10-15] MEDS: BENZOCAINE 1 SPRAY BOTTLE TOPICAL PRN (02:05)
[2018-10-15] MEDS: HYDROmorphone 2 MG/ML VIAL IV PRN ×3 (02:05→07:17)
[2018-10-15] MEDS: 0.9 % SODIUM CHLORIDE 10 ML SYRINGE IV SCH ×3 (04:42→20:49)
[2018-10-15 05:44] LABS: ALT/SGPT 12 U/l (0-40); Albumin 3.2 gm/dL (3.2-5.2); Albumin/Globulin Ratio 1.2 (1.0-2.3); Alkaline Phosphatase 71 U/L (39-117); Bilirubin,Direct < 0.2 mg/dL (0.0-0.3); Blood Urea Nitrogen 2 mg/dl (6-20); Gamma Glutamyl Transpeptidase 20 U/L (5-36); Uric Acid 3.8 mg/dL (2.5-8.0)
--- NOTE | 2018-10-15 06:48 | Internal Med Progress Note ---
Medical - PN: Subj Patient information: Note initiated : 10/15/18 at 6:47 am Service Date, if different from initiated Date: [] Patient: Dayanna Stephens a 57 y/o F admitted on 10/08/18 for Abd pain. Chief Complaint: [] Interval history: Ms. Stephens is a 57 year old F with h/o recurrent bowel obstruction, multiple bowel surgeries presents to the hospital today for evaluation of abdominal pain. The patient had a last bowel surgery at the end of July, was seen by Dr. Currie she was doing well on oral laxative regimen. She had [address] after surgery that was still draining. On she noted that the drain on the right side stopped draining and she took it out. Left-sided drain is still in place. Since yesterday the patient has been complaining about abdominal pain not feeling well nausea vomiting and decreased output through the stoma. She therefore came to the emergency room for further management. The patient was evaluated by general surgery and admitted to the service. Medicine has been consulted for management of chronic medical issues. The patient has a history of morbid obesity, myasthenia gravis diabetes, hypoparathyroidism, hypocalcemia, polyglandular disease. The patient is on chronic high-dose steroids 20 mg of prednisone daily. After being admitted to the hospital the patient was given some enemas last night, around 3:30 AM it was noted that the patient was not feeling well, she was feeling more weak than before, dizzy had some headache and a heart rate was elevated in the 140s-150s. At baseline in the past the patient's heart rate has always been elevated. The patient was moved to telemetry, chest x-ray ordered labs blood culture ordered. There was a low-grade temperature 99.3 noted. ABG shows pH of 7.48 PCO2 45 PO2 72 on 2 L of oxygen lactic acid was 1.5. Chest x-ray is pending CT abdomen and pelvis done last night reviewed showed possible abscess in the anterior abdominal I tried to aspirate a sample of the abscess using a 1.5 inch 18-gauge needle with ultrasound guidance however I believe that was not able to reach the abscess. 10/10 Pt seen examined, no acute overnight issues, No major activity at colostomy, Still has abominal pain WBC trended down, NG in place, on broad spectrum abx Drained fluid from Ant abdominal wall, by Radiology still a pocket of 6cm abscess remains, to be drained by surgery. Cultures are negative so far. 10/11 Pt seen examined, still has some abdominal pain small smudge of stools no new complaints Labs stable, hemodynamically stable switch hydrocotisone to IV solumedrol 20mg 10/12 Slept well. No gas in ostomy. Had some nausea earlier but better now. Some abdominal discomfort but mild. 10/13 Had some nausea and retching this morning. Otherwise no complaints. She is having stool output in her ostomy. 10/14 Having output through her ostomy. Has headache. But otherwise no new complaints. NG in place, will be in place through today. 10/15 No stool in colostomy through most of the night and then this morning she started having output again. No new complaints, no overnight events f,eeling well. Review of Systems: denies fever/chills/nausea/vomiting/chest pain/cough/dyspnea. Otherwise see above. - Constitutional Vitals: Vital Signs Temp Pulse Resp BP Pulse Ox 98.3 F 83 16 121/63 96 10/15/18 03:35 10/15/18 03:35 10/15/18 03:35 10/15/18 03:35 10/15/18 03:35 Period Temp Pulse Resp BP Sys/Archuleta Pulse Ox Last 24 Hr 97.6 F-99.8 F 79-94 16-17 121-138/63-82 95-97 Intake and Output 10/14/18 10/15/18 10/15/18 21:59 05:59 13:59 Intake Total 1040 / 1040 1453 / 1453 Output Total 3225 / 3225 2114 / 5 Balance -2185 / -2185 -662 / -662 Weight 109.543 kg Intake & Output: Intake & Output 10/14/18 10/15/18 10/15/18 21:59 05:59 13:59 Intake Total 1040 / 1040 1453 / 1453 Output Total 3225 / 3225 2115 / 5 Balance -2185 / -2185 -662 / -662 Weight 109.543 kg Intake: IV 443 / 443 Dextrose 5%-1/2Ns W/20Meq KCl 1 443 / 443 ,000 ml @ 75 mls/hr IV .[id number] [facility] Rx#:[id number] Oral 1040 / 1040 1010 / 1010 Output: Gastric Drainage 0 / 0 Left Nare 0 / 0 Drainage 50 / 50 15 / 15 Pigtail 50 / 50 15 / 15 Void Amount 3175 / 3175 2100 / 2100 Stool 0 / 0 Other: Meal Dinner Percent of Meal Consumed 100% Feeding Ability Independent Urine Appearance Clear Clear Urine Color Pale Pale Urine Odor Normal Exam: General: Alert, Awake, No acute Distress, obese Eyes/N/T: EOMI, Head/Neck: neck supple, CV: RRR, No murmurs, Pulm: Clear b/l, no wheezing/rhonchi/rales Abd: soft, mild tenderness, ostomy outpt Ext: no clubbing/cyanosis, trace b/l LE edema Neuro: Alert, no focal deficits, moves all extremities, Skin: warm/dry Medical - PN: Obj Da - Labs CBC & Chem 7: 10/13/18 04:30 10/15/18 04:34 Labs: Abnormal Lab Results 10/15/18 10/14/18 10/13/18 04:34 04:45 04:30 Hgb Hct MCV MCH RDW MPV [place] % (Auto) [place] # (Auto) Potassium 3.1 L BUN 2 L 4 L Glucose 134 H 125 H 158 H Calcium 7.4 L 6.8 L 7.8 L Phosphorus 4.6 H Magnesium 1.4 L Total Protein 5.8 L Triglycerides 453 H 10/13/18 04:30 Hgb 10.4 L Hct 32.4 L MCV 79.7 L MCH 25.5 L RDW 15.6 H MPV 7.2 L [place] % (Auto) 13.9 H [place] # (Auto) 1.3 H Potassium BUN Glucose Calcium Phosphorus Magnesium Total Protein Triglycerides Meds: Medications Benzocaine (Cetacaine) 1 spray TOPICAL PRN PRN PRN Reason: throat pain Last Admin: 10/15/18 02:05 Dose: 1 spray Dextrose (Dextrose 50%) 0 ml IV UD PRN PRN Reason: Hypoglycemia Diagnostic Test (Pha) (Accu-Chek) 1 each FS ACHS [facility] Last Admin: 10/14/18 20:38 Dose: 1 each Enoxaparin Sodium (Lovenox) 40 mg SQ DAILY [facility] Stop: 10/18/18 22:59 Last Admin: 10/14/18 08:57 Dose: 40 mg Erythromycin (Erythromycin) 250 mg PO TIDAC [facility] Last Admin: 10/14/18 17:00 Dose: 250 mg Hydralazine HCl (Apresoline) 0 mg IV Q2HP PRN PRN Reason: Hypertension Hydromorphone HCl (Dilaudid) 0.5 - 1 mg IV Q2HP PRN PRN Reason: PAIN LEVEL > 6 Last Admin: 10/15/18 04:59 Dose: 0.5 mg Acetaminophen (Ofirmev) 1,000 mg in 100 mls @ 200 mls/hr IV Q6HP PRN PRN Reason: Pain/Fever. Last Infusion: 10/14/18 04:10 Dose: Infused Potassium Chloride/Dextrose/Sod Cl (Dextrose 5%-1/2ns W/20meq Kcl) 1,000 mls @ 75 mls/hr IV .[id number] [facility] Stop: 10/17/18 17:46 Last Admin: 10/15/18 01:11 Dose: 75 mls/hr Insulin Human Lispro (Humalog) 0 unit SQ ACHS [facility]; Protocol Last Admin: 10/14/18 20:38 Dose: Not Given Magnesium Oxide (Magnesium Oxide) 400 mg PO BID [facility] Stop: 10/15/18 08:59 Last Admin: 10/14/18 20:44 Dose: 400 mg Methylprednisolone Sodium Succinate (Solu-Medrol) 20 mg IV DAILY [facility] Last Admin: 10/14/18 08:56 Dose: 20 mg [facility] Last Admin: 10/14/18 16:59 Dose: 40 mg Polyethylene Glycol (Miralax) 17 gm PO BID [facility] Stop: 10/19/18 20:59 Last Admin: 10/14/18 20:44 Dose: 17 gm Promethazine HCl (Phenergan) 12.5 mg IV Q4HP PRN PRN Reason: Nausea And Vomiting Last Admin: 10/13/18 07:44 Dose: 12.5 mg Sodium Biphosphate/Sodium Phosphate (Fleets Adult) 1 dose HI DAILY [facility] Last Admin: 10/14/18 08:30 Dose: Not Given Sodium Chloride (Saline Flush) 10 ml IV Q8 [facility] Last Admin: 01/02/19 04:42 Dose: Not Given Medical - PN: A/P - Time Spent With Patient Total time spent is greater than 50% in coordination of care (as documented) at patient's floor/unit and/or counseling patient: - Narrative A/P Narrative: A/P *SBO vs Adynamic ileus: NG in place, Management per surgery. Improving *Ant Abdominal wall seroma: Noted on CT, drain placed by radiology, still has a 6cm lesion, cultures neg so far , Mangement per surgery. *Weakness/TAcycardia/Dizziness: Pt condition improved, Does have intermittent tachycardia, but HR now much better, *DM: SSI for glucose management *Myasthenia Gravis: on po prednisone 20 am at baseline, was on hydrocortisone 100q8, now switched to IV solumedrol 20mg. *Hypocalcemia: Due to hypoparathyroidsim/polyglandular syndrome, Was supposed to be on calcium supplements and calcitriol, replete calcium prn *Hypomagnesemia: replace prn *Hypertension:BP elevated due to pain/ acute condition, treat underlying condition, if BP goes up too high, will give some hydralazine to help. BP is stable now. *ppx: enoxaparin Medical - PN: Qual - VTE Deep Vein Thrombosis/Pulmonary Embolism Present on Admission: No
[2018-10-15] MEDS: PANTOPRAZOLE 40 MG VIAL IV SCH ×2 (07:17→17:15)
[2018-10-15] MEDS: ERYTHROMYCIN BASE 250 MG TABLET PO SCH ×3 (07:18→17:18)
[2018-10-15] MEDS: INSULIN LISPRO 1 UNIT/0.01 ML UNIT SQ SCH ×4 (07:19→20:47)
[2018-10-15] MEDS: POLYETHYLENE GLYCOL 3350 17 GM PACKET PO SCH ×2 (08:19→20:48)
[2018-10-15] MEDS: FLEETS ADULT ENEMA PR SCH (08:20)
[2018-10-15] MEDS: ENOXAPARIN 40 MG/0.4 ML SYRINGE SQ SCH (08:20)
[2018-10-15] MEDS: methylPREDNISolone SOD SUCC 40 MG/ML VIAL IV SCH (08:20)
--- NOTE | 2018-10-15 08:53 | XRay Report ---
HISTORY: Follow-up small bowel obstruction FINDINGS: There are a few loops of mildly dilated small bowel in the midabdomen. They measure up to 4.2 cm in diameter. These have decreased in caliber since the time of the small bowel follow-through study done on 10/12/18. The oral contrast given previously has passed through small bowel and some of it remains in the colon. The colon is nondistended. The stomach is decompressed by a nasogastric tube. There is a percutaneous drain in the left side of the pelvis and patient has an ostomy overlying the left iliac crest. IMPRESSION: Resolving distal small bowel obstruction Interpreted and Authenticated by: Zay Juarez 10/15/18
--- NOTE | 2018-10-15 11:25 | General Surgery Progress Note ---
Subjective Patient reports: feels better (Patient seen bedside. Tolerating clears. Ostomy functioning with liquid output. AXR showed resolving SBO. good urine output. PREETI drain minimla output.) Narrative: Note initiated : 10/15/18 at 11:25 am Service Date, if different from initiated Date: [] Patient: Dayanna Stephens 57 y/o F admitted on 10/08/18 for Abd pain. Chief Complaint: [] Pertinent ROS: No N,V, No SOB or CP. No current abdominal pain Objective Temp Pulse Resp BP Pulse Ox 97.8 F 101 H 16 114/87 92 10/15/18 08:00 10/15/18 08:00 10/15/18 08:00 10/15/18 08:00 10/15/18 08:00 - Additional Data Intake & Output - Last 24 hours: Intake & Output 10/13/18 10/14/18 10/15/18 10/16/18 05:59 05:59 05:59 05:59 Intake Total 4039.0910 / 4039.0910 4090 / 4090 5423 / 5423 Output Total 3425 / 3425 6075 / 6075 7340 / 7340 Balance 614.0910 / 614.0910 -1984 / -1984 -1916 / Weight 245 lb 8 oz 243 lb 8 oz 241 lb 8 oz - General physical appearance well developed, well nourished, no distress - Eyes normal ocular movement - ENT normal mucosa - Neck trachea midline - Respiratory normal respiratory effort, clear to auscultation - Cardiovascular Cardiovascular exam: Present: normal rate and rhythm - Abdomen soft (Obese,NTTP, No rebound or guarding Preeti Drain site no erythema.) - Integumentary no rash - Psychiatric oriented to time, oriented to person, oriented to place, memory intact - Additional Exam No LE Edema B/L - Labs 10/13/18 04:30 10/15/18 04:34 Diabetes panel 10/15/18 10/15/18 Range/Units 04:34 04:34 Sodium Not Reportable 142 Potassium Not Reportable 3.7 Chloride Not Reportable 101 Carbon Dioxide Not Reportable 28 BUN Not Reportable 2 L Creatinine Not Reportable 0.7 Glucose TNP 134 H Calcium Not Reportable 7.4 L AST 9 (0-37) U/l ALT 12 (0-40) U/l Alkaline Phosphatase 71 (39-117) U/L Total Protein 5.8 L (5.9-8.4) gm/dL Albumin 3.2 (3.2-5.2) gm/dL Triglycerides 453 H (<150) mg/dl Calcium panel 10/15/18 10/15/18 Range/Units 04:34 04:34 Calcium Not Reportable 7.4 L Phosphorus 3.9 (2.7-4.5) mg/dL Albumin 3.2 (3.2-5.2) gm/dL Pituitary panel 10/15/18 10/15/18 Range/Units 04:34 04:34 Sodium Not Reportable 142 Potassium Not Reportable 3.7 Chloride Not Reportable 101 Carbon Dioxide Not Reportable 28 BUN Not Reportable 2 L Creatinine Not Reportable 0.7 Glucose TNP 134 H Calcium Not Reportable 7.4 L Adrenal panel 10/15/18 10/15/18 Range/Units 04:34 04:34 Sodium Not Reportable 142 Potassium Not Reportable 3.7 Chloride Not Reportable 101 Carbon Dioxide Not Reportable 28 BUN Not Reportable 2 L Creatinine Not Reportable 0.7 Glucose TNP 134 H Calcium Not Reportable 7.4 L Total Bilirubin 0.2 (0.0-1.0) mg/dL AST 9 (0-37) U/l ALT 12 (0-40) U/l Alkaline Phosphatase 71 (39-117) U/L Total Protein 5.8 L (5.9-8.4) gm/dL Albumin 3.2 (3.2-5.2) gm/dL - Imaging Abdominal x-ray: report reviewed, image reviewed (Resolving small bowel obstruction) Assessment and Plan (1) Small bowel obstruction Status: Acute Current Visit: Yes (2) Fecal impaction Status: Acute Current Visit: Yes - Narrative A/P Narrative: 57yo female with multiple medical problems with partial small bowel obstruction vs atonic bowel resolving Ostomy having output Continue erythromycin PO D/C NGT Full liquids Start home medications Steroids Dvt prophylaxis continue IR drain. Fleet enemas via stoma prn Hospitalist on case appreciated. Will replace electrolytes PRN Pt eval & treat, OOB to chair - Time Spent With Patient Total time spent is greater than 50% in coordination of care (as documented) at patient's floor/unit and/or counseling patient:
[2018-10-15] MEDS: IBUPROFEN 200 MG TABLET PO PRN ×3 (13:54→22:41)
[2018-10-15] MEDS: MAGNESIUM OXIDE 400 MG TABLET PO SCH ×2 (14:46→20:48)
[2018-10-15] MEDS: CALCITRIOL 0.25 MCG CAPSULE PO SCH ×2 (14:46→20:48)
[2018-10-15] MEDS: ACETAMINOPHEN 1,000 MG/100 ML BOTTLE IV PRN ×2 (16:30→22:41)
[2018-10-15] MEDS: DULoxetine 30 MG CAPSULE PO SCH (20:48)
[2018-10-15] MEDS: LISINOPRIL 20 MG TABLET PO SCH (20:48)
[2018-10-15] MEDS: LORazepam 0.5 MG TABLET PO PRN (20:59)
[2018-10-15] MEDS: CALCIUM CARBONATE 1,250 MG/5 ML ORAL.SUSP PO SCH (21:04)
--- NOTE | 2018-10-16 06:52 | Internal Med Progress Note ---
Medical - PN: Subj Patient information: Note initiated : 10/16/18 at 6:51 am Service Date, if different from initiated Date: [] Patient: Dayanna Stephens a 57 y/o F admitted on 10/08/18 for Abd pain. Chief Complaint: [] Interval history: Ms. Stephens is a 57 year old F with h/o recurrent bowel obstruction, multiple bowel surgeries presents to the hospital today for evaluation of abdominal pain. The patient had a last bowel surgery at the end of July, was seen by Dr. Currie she was doing well on oral laxative regimen. She had [address] after surgery that was still draining. On she noted that the drain on the right side stopped draining and she took it out. Left-sided drain is still in place. Since yesterday the patient has been complaining about abdominal pain not feeling well nausea vomiting and decreased output through the stoma. She therefore came to the emergency room for further management. The patient was evaluated by general surgery and admitted to the service. Medicine has been consulted for management of chronic medical issues. The patient has a history of morbid obesity, myasthenia gravis diabetes, hypoparathyroidism, hypocalcemia, polyglandular disease. The patient is on chronic high-dose steroids 20 mg of prednisone daily. After being admitted to the hospital the patient was given some enemas last night, around 3:30 AM it was noted that the patient was not feeling well, she was feeling more weak than before, dizzy had some headache and a heart rate was elevated in the 140s-150s. At baseline in the past the patient's heart rate has always been elevated. The patient was moved to telemetry, chest x-ray ordered labs blood culture ordered. There was a low-grade temperature 99.3 noted. ABG shows pH of 7.48 PCO2 45 PO2 72 on 2 L of oxygen lactic acid was 1.5. Chest x-ray is pending CT abdomen and pelvis done last night reviewed showed possible abscess in the anterior abdominal I tried to aspirate a sample of the abscess using a 1.5 inch 18-gauge needle with ultrasound guidance however I believe that was not able to reach the abscess. 10/10 Pt seen examined, no acute overnight issues, No major activity at colostomy, Still has abominal pain WBC trended down, NG in place, on broad spectrum abx Drained fluid from Ant abdominal wall, by Radiology still a pocket of 6cm abscess remains, to be drained by surgery. Cultures are negative so far. 10/11 Pt seen examined, still has some abdominal pain small smudge of stools no new complaints Labs stable, hemodynamically stable switch hydrocotisone to IV solumedrol 20mg 10/12 Slept well. No gas in ostomy. Had some nausea earlier but better now. Some abdominal discomfort but mild. 10/13 Had some nausea and retching this morning. Otherwise no complaints. She is having stool output in her ostomy. 10/14 Having output through her ostomy. Has headache. But otherwise no new complaints. NG in place, will be in place through today. 10/15 No stool in colostomy through most of the night and then this morning she started having output again. No new complaints, no overnight events f,eeling well. 10/16 continues to have ostomy outpt. better sleep last night. no new complaints Review of Systems: denies fever/chills/nausea/vomiting/chest pain/cough/dyspnea. Otherwise see above. - Constitutional Vitals: Vital Signs Temp Pulse Resp BP Pulse Ox 98.4 F 80 20 141/74 96 10/16/18 03:50 10/16/18 03:50 10/16/18 03:50 10/16/18 03:50 10/16/18 03:50 Period Temp Pulse Resp BP Sys/Archuleta Pulse Ox Last 24 Hr 96.4 F-99.2 F 80-101 16-20 114-154/74-89 92-99 Intake and Output 10/15/18 10/16/18 10/16/18 21:59 05:59 13:59 Intake Total 2260 / 2260 50 / 50 Output Total 3375 / 3375 1775 / 1775 Balance -1115 / -1115 -1725 / -1725 Weight 109.089 kg Intake & Output: Intake & Output 10/15/18 10/16/18 10/16/18 21:59 05:59 13:59 Intake Total 2260 / 2260 50 / 50 Output Total 3375 / 3375 1775 / 1775 Balance -1115 / -1115 -1725 / -1725 Weight 109.089 kg Intake: IV 100 / 100 Oral 2160 / 2160 50 / 50 Output: Drainage 50 / 50 Pigtail 50 / 50 Void Amount 2600 / 2600 1325 / 1325 Stool 775 / 775 400 / 400 Other: Meal Dinner Percent of Meal Consumed 100% Urine Appearance Clear Clear Urine Color Pale Pale Stool Color Green Brown Stool Consistency Liquid Liquid # Voids 1 Exam: General: Alert, Awake, No acute Distress, obese Eyes/N/T: EOMI, Head/Neck: neck supple, CV: RRR, No murmurs, Pulm: Clear b/l, no wheezing/rhonchi/rales Abd: soft, mild tenderness, ostomy outpt Ext: no clubbing/cyanosis, trace b/l LE edema Neuro: Alert, no focal deficits, moves all extremities, Skin: warm/dry Medical - PN: Obj Da - Labs CBC & Chem 7: 10/13/18 04:30 10/15/18 04:34 Labs: Abnormal Lab Results 10/15/18 10/14/18 04:34 04:45 BUN 2 L 4 L Glucose 134 H 125 H Calcium 7.4 L 6.8 L Magnesium 1.4 L Total Protein 5.8 L Triglycerides 453 H Meds: Medications Benzocaine (Cetacaine) 1 spray TOPICAL PRN PRN PRN Reason: throat pain Last Admin: 10/15/18 02:05 Dose: 1 spray Calcitriol (Rocaltrol) 0.5 mcg PO TID [facility] Last Admin: 10/15/18 20:48 Dose: 0.5 mcg Calcium Carbonate/Glycine (Calcium Carbonate) 1,250 mg PO BID [facility] Last Admin: 10/15/18 21:04 Dose: 1,250 mg Dextrose (Dextrose 50%) 0 ml IV UD PRN PRN Reason: Hypoglycemia Diagnostic Test (Pha) (Accu-Chek) 1 each FS ACHS [facility] Last Admin: 10/15/18 20:47 Dose: 1 each Duloxetine HCl (Cymbalta) 30 mg PO BID [facility] Last Admin: 10/15/18 20:48 Dose: 30 mg Enoxaparin Sodium (Lovenox) 40 mg SQ DAILY [facility] Stop: 10/18/18 22:59 Last Admin: 10/15/18 08:20 Dose: 40 mg Erythromycin (Erythromycin) 250 mg PO TIDAC [facility] Last Admin: 10/15/18 17:18 Dose: 250 mg Hydralazine HCl (Apresoline) 0 mg IV Q2HP PRN PRN Reason: Hypertension Hydromorphone HCl (Dilaudid) 0.5 - 1 mg IV Q2HP PRN PRN Reason: PAIN LEVEL > 6 Last Admin: 10/15/18 07:17 Dose: 0.5 mg Acetaminophen (Ofirmev) 1,000 mg in 100 mls @ 200 mls/hr IV Q6HP PRN PRN Reason: Pain/Fever. Last Admin: 10/15/18 22:41 Dose: 200 mls/hr Ibuprofen (Motrin) 400 mg PO Q4HP PRN PRN Reason: Pain Last Admin: 10/15/18 22:41 Dose: 400 mg Insulin Human Lispro (Humalog) 0 unit SQ [facility]; Protocol Last Admin: 10/15/18 20:47 Dose: Not Given Levothyroxine Sodium (Synthroid) 250 mcg PO [facility] Lisinopril (Zestril) 20 mg PO BID [facility] Last Admin: 10/15/18 20:48 Dose: 20 mg Lorazepam (Ativan) 0.5 mg PO Q12HP PRN PRN Reason: Anxiety/ insomnia Stop: 10/19/18 17:01 Last Admin: 10/15/18 20:59 Dose: 0.5 mg Magnesium Oxide (Magnesium Oxide) 400 mg PO TID [facility] Last Admin: 10/15/18 20:48 Dose: 400 mg Pantoprazole Sodium (Protonix) 40 mg IV BIDAC [facility] Last Admin: 10/15/18 17:15 Dose: 40 mg Polyethylene Glycol (Miralax) 17 gm PO BID [facility] Stop: 10/19/18 20:59 Last Admin: 10/15/18 20:48 Dose: 17 gm Prednisone (Prednisone) 20 mg PO [facility] Promethazine HCl (Phenergan) 12.5 mg IV Q4HP PRN PRN Reason: Nausea And Vomiting Last Admin: 10/13/18 07:44 Dose: 12.5 mg Sodium Chloride (Saline Flush) 10 ml IV Q8 [facility] Last Admin: 10/15/18 20:49 Dose: 10 ml Medical - PN: A/P - Time Spent With Patient Total time spent is greater than 50% in coordination of care (as documented) at patient's floor/unit and/or counseling patient: - Narrative A/P Narrative: A/P *SBO vs Adynamic ileus: NG in place, Management per surgery. Improving. Diet advancing per Surg *Ant Abdominal wall seroma: Noted on CT, drain placed by radiology, still has a 6cm lesion, cultures neg so far , Mangement per surgery. *Weakness/TAcycardia/Dizziness: Pt condition improved, Does have intermittent tachycardia, but HR now much better, *DM: SSI for glucose management. A1c 8.3 -start metformin outpt along with ADA diet *Myasthenia Gravis: on po prednisone 20 am at baseline, was on hydrocortisone 100q8, now switched to IV solumedrol 20mg. *Hypocalcemia: Due to hypoparathyroidsim/polyglandular syndrome, Was supposed to be on calcium supplements and calcitriol, replete calcium prn *Hypomagnesemia: replace prn *Hypertension:BP elevated due to pain/ acute condition, treat underlying condition, if BP goes up too high, will give some hydralazine to help. BP is stable now. *ppx: enoxaparin Medical - PN: Qual - VTE Deep Vein Thrombosis/Pulmonary Embolism Present on Admission: No
--- NOTE | 2018-10-16 07:20 | General Surgery Progress Note ---
Subjective Patient reports: feels better (Patient seen this am. tolerated liquids. Ostomy functioning with more formed stool. No events reported overnight.) Narrative: Note initiated : 10/16/18 at 7:18 am Service Date, if different from initiated Date: [] Patient: Dayanna Stephens 57 y/o F admitted on 10/08/18 for Abd pain. Chief Complaint: [] Pertinent ROS: No Abdominal pain, No N/V/D, No F/C/NS, No SOB/CP Objective Temp Pulse Resp BP Pulse Ox 98.4 F 80 20 141/74 96 10/16/18 03:50 10/16/18 03:50 10/16/18 03:50 10/16/18 03:50 10/16/18 03:50 - Additional Data Intake & Output - Last 24 hours: Intake & Output 10/14/18 10/15/18 10/16/18 10/17/18 05:59 05:59 05:59 05:59 Intake Total 4090 / 4090 5423 / 5423 2730 / 2730 Output Total 6075 / 6075 7340 / 7340 5150 / 5150 Balance -1985 / -1984 -1916 / -1916 -2419 / -2420 Weight 243 lb 8 oz 241 lb 8 oz 240 lb 8 oz - General physical appearance well developed, well nourished, no distress - Eyes normal ocular movement - ENT normal mucosa - Neck trachea midline - Respiratory clear to auscultation - Abdomen soft (Obese, NTTP, No rebound or guarding. IR drain with serous output.) - Integumentary no rash - Neurologic normal sensation - Musculoskeletal normal posture - Psychiatric oriented to time, oriented to person, oriented to place, memory intact - Labs 10/13/18 04:30 10/15/18 04:34 Assessment and Plan (1) Small bowel obstruction Status: Acute Current Visit: Yes (2) Fecal impaction Status: Acute Current Visit: Yes - Narrative A/P Narrative: 57yo female with multiple medical problems with partial small bowel obstruction vs atonic bowel resolving Ostomy having output Continue erythromycin PO D/C NGT Advance diet to carb consistent home medications started Steroids Dvt prophylaxis continue IR drain. Fleet enemas via stoma prn Hospitalist on case appreciated. Will replace electrolytes PRN Pt eval & treat, OOB to chair OT Eval. Begin discharge planning if tolerates diet - Time Spent With Patient Total time spent is greater than 50% in coordination of care (as documented) at patient's floor/unit and/or counseling patient:
[2018-10-16] MEDS: ENOXAPARIN 40 MG/0.4 ML SYRINGE SQ SCH (07:56)
[2018-10-16] MEDS: POLYETHYLENE GLYCOL 3350 17 GM PACKET PO SCH ×2 (07:56→20:12)
[2018-10-16] MEDS: LISINOPRIL 20 MG TABLET PO SCH ×2 (07:57→20:15)
[2018-10-16] MEDS: LEVOTHYROXINE 125 MCG TABLET PO SCH (07:57)
[2018-10-16] MEDS: MAGNESIUM OXIDE 400 MG TABLET PO SCH ×3 (07:57→20:15)
[2018-10-16] MEDS: CALCITRIOL 0.25 MCG CAPSULE PO SCH ×3 (07:57→20:13)
[2018-10-16] MEDS: IBUPROFEN 200 MG TABLET PO PRN ×3 (07:58→20:15)
[2018-10-16] MEDS: DULoxetine 30 MG CAPSULE PO SCH ×2 (07:58→20:15)
[2018-10-16] MEDS: PANTOPRAZOLE 40 MG VIAL IV SCH ×2 (07:58→17:06)
[2018-10-16] MEDS: predniSONE 20 MG TABLET PO SCH (07:58)
[2018-10-16] MEDS: CALCIUM CARBONATE 1,250 MG/5 ML ORAL.SUSP PO SCH ×2 (07:58→20:16)
[2018-10-16] MEDS: INSULIN LISPRO 1 UNIT/0.01 ML UNIT SQ SCH ×4 (07:59→20:15)
[2018-10-16] MEDS: 0.9 % SODIUM CHLORIDE 10 ML SYRINGE IV SCH ×3 (07:59→22:38)
[2018-10-16] MEDS: metFORMIN 500 MG TAB.XL.24H PO SCH (08:05)
[2018-10-16] MEDS: ERYTHROMYCIN BASE 250 MG TABLET PO SCH ×3 (08:05→17:07)
[2018-10-16] MEDS: ACETAMINOPHEN 1,000 MG/100 ML BOTTLE IV PRN ×2 (15:09→21:59)
[2018-10-16] MEDS: LORazepam 0.5 MG TABLET PO PRN (21:59)
[2018-10-17] MEDS: IBUPROFEN 200 MG TABLET PO PRN (05:07)
[2018-10-17] MEDS: 0.9 % SODIUM CHLORIDE 10 ML SYRINGE IV SCH (05:35)
--- NOTE | 2018-10-17 05:44 | Internal Med Progress Note ---
Medical - PN: Subj Patient information: Note initiated : 10/17/18 at 5:42 am Service Date, if different from initiated Date: [] Patient: Dayanna Stephens a 57 y/o F admitted on 10/08/18 for Abd pain. Chief Complaint: [] Interval history: Ms. Stephens is a 57 year old F with h/o recurrent bowel obstruction, multiple bowel surgeries presents to the hospital today for evaluation of abdominal pain. The patient had a last bowel surgery at the end of July, was seen by Dr. Currie she was doing well on oral laxative regimen. She had [address] after surgery that was still draining. On she noted that the drain on the right side stopped draining and she took it out. Left-sided drain is still in place. Since yesterday the patient has been complaining about abdominal pain not feeling well nausea vomiting and decreased output through the stoma. She therefore came to the emergency room for further management. The patient was evaluated by general surgery and admitted to the service. Medicine has been consulted for management of chronic medical issues. The patient has a history of morbid obesity, myasthenia gravis diabetes, hypoparathyroidism, hypocalcemia, polyglandular disease. The patient is on chronic high-dose steroids 20 mg of prednisone daily. After being admitted to the hospital the patient was given some enemas last night, around 3:30 AM it was noted that the patient was not feeling well, she was feeling more weak than before, dizzy had some headache and a heart rate was elevated in the 140s-150s. At baseline in the past the patient's heart rate has always been elevated. The patient was moved to telemetry, chest x-ray ordered labs blood culture ordered. There was a low-grade temperature 99.3 noted. ABG shows pH of 7.48 PCO2 45 PO2 72 on 2 L of oxygen lactic acid was 1.5. Chest x-ray is pending CT abdomen and pelvis done last night reviewed showed possible abscess in the anterior abdominal I tried to aspirate a sample of the abscess using a 1.5 inch 18-gauge needle with ultrasound guidance however I believe that was not able to reach the abscess. 10/10 Pt seen examined, no acute overnight issues, No major activity at colostomy, Still has abominal pain WBC trended down, NG in place, on broad spectrum abx Drained fluid from Ant abdominal wall, by Radiology still a pocket of 6cm abscess remains, to be drained by surgery. Cultures are negative so far. 10/11 Pt seen examined, still has some abdominal pain small smudge of stools no new complaints Labs stable, hemodynamically stable switch hydrocotisone to IV solumedrol 20mg 10/12 Slept well. No gas in ostomy. Had some nausea earlier but better now. Some abdominal discomfort but mild. 10/13 Had some nausea and retching this morning. Otherwise no complaints. She is having stool output in her ostomy. 10/14 Having output through her ostomy. Has headache. But otherwise no new complain ts. NG in place, will be in place through today. 10/15 No stool in colostomy through most of the night and then this morning she started having output again. No new complaints, no overnight events f,eeling well. 10/16 continues to have ostomy outpt. better sleep last night. no new complaints 10/17 No issues overnight, doing well. Continues have ostomy output. Review of Systems: denies fever/chills/nausea/vomiting/chest pain/cough/dyspnea. Otherwise see above. - Constitutional Vitals: Vital Signs Temp Pulse Resp BP Pulse Ox 98.4 F 89 18 152/88 92 10/17/18 02:52 10/17/18 02:52 10/17/18 02:52 10/17/18 02:52 10/17/18 02:52 Period Temp Pulse Resp BP Sys/Archuleta Pulse Ox Last 24 Hr 97.7 F-98.4 F 60-94 16-18 120-154/78-88 92-98 Intake and Output 10/16/18 10/16/18 10/17/18 13:59 21:59 05:59 Intake Total 400 / 2410 460 / 2410 1550 / 2410 Output Total 800 / 3290 1300 / 3290 1190 / 3290 Balance -400 / -880 -840 / -880 360 / -880 Weight 109.089 kg 108.862 kg Patient Weight 10/17/18 05:59 Weight 108.862 kg Intake & Output: Intake & Output 10/16/18 10/16/18 10/17/18 13:59 21:59 05:59 Intake Total 400 / 2410 460 / 2410 1550 / 2410 Output Total 800 / 3290 1300 / 3290 1190 / 3290 Balance -400 / -880 -840 / -880 360 / -880 Weight 109.089 kg 108.862 kg Intake: IV 100 / 1200 1100 / 1200 Oral 400 / 1200 360 / 1200 440 / 1200 Input, Drain Irrigation Amount 10 / 10 Pigtail 10 / 10 Output: Drainage 40 / 40 Pigtail 40 / 40 Void Amount 800 / 2400 800 / 2400 800 / 2400 Stool 500 / 850 350 / 850 Other: Meal Dinner Percent of Meal Consumed 100% Feeding Ability Independent Stool Size Small Stool Color Brown Brown Yellow Stool Consistency Liquid Exam: General: Alert, Awake, No acute Distress, obese Eyes/N/T: EOMI, Head/Neck: neck supple, CV: RRR, No murmurs, Pulm: Clear b/l, no wheezing/rhonchi/rales Abd: soft, mild tenderness, ostomy outpt Ext: no clubbing/cyanosis, trace b/l LE edema Neuro: Alert, no focal deficits, moves all extremities, Skin: warm/dry Medical - PN: Obj Da - Labs CBC & Chem 7: 10/13/18 04:30 10/15/18 04:34 Labs: Abnormal Lab Results 10/15/18 10/14/18 04:34 04:45 BUN 2 L 4 L Glucose 134 H 125 H Calcium 7.4 L 6.8 L Magnesium 1.4 L Total Protein 5.8 L Triglycerides 453 H Meds: Medications Benzocaine (Cetacaine) 1 spray TOPICAL PRN PRN PRN Reason: throat pain Last Admin: 10/15/18 02:05 Dose: 1 spray Documented by: Calcitriol (Rocaltrol) 0.5 mcg PO TID [facility] Last Admin: 10/16/18 20:13 Dose: 0.5 mcg Documented by: Calcium Carbonate/Glycine (Calcium Carbonate) 1,250 mg PO BID [facility] Last Admin: 10/16/18 20:16 Dose: 1,250 mg Documented by: Dextrose (Dextrose 50%) 0 ml IV UD PRN PRN Reason: Hypoglycemia Diagnostic Test (Pha) (Accu-Chek) 1 each FS ACHS [facility] Last Admin: 10/16/18 20:16 Dose: 1 each Documented by: Duloxetine HCl (Cymbalta) 30 mg PO BID [facility] Last Admin: 10/16/18 20:15 Dose: 30 mg Documented by: Enoxaparin Sodium (Lovenox) 40 mg SQ DAILY [facility] Stop: 10/18/18 22:59 Last Admin: 10/16/18 07:56 Dose: 40 mg Documented by: Erythromycin (Erythromycin) 250 mg PO TIDAC [facility] Last Admin: 10/16/18 17:07 Dose: 250 mg Documented by: Hydralazine HCl (Apresoline) 0 mg IV Q2HP PRN PRN Reason: Hypertension Hydromorphone HCl (Dilaudid) 0.5 - 1 mg IV Q2HP PRN PRN Reason: PAIN LEVEL > 6 Last Admin: 10/15/18 07:17 Dose: 0.5 mg Documented by: Acetaminophen (Ofirmev) 1,000 mg in 100 mls @ 200 mls/hr IV Q6HP PRN PRN Reason: Pain/Fever. Last Infusion: 10/16/18 23:21 Dose: Infused Documented by: Ibuprofen (Motrin) 400 mg PO Q4HP PRN PRN Reason: Pain Last Admin: 10/17/18 05:07 Dose: 400 mg Documented by: Insulin Human Lispro (Humalog) 0 unit SQ [facility]; Protocol Last Admin: 10/16/18 20:15 Dose: 2 units Documented by: Levothyroxine Sodium (Synthroid) 250 mcg PO QAMAC [facility] Last Admin: 10/16/18 07:57 Dose: 250 mcg Documented by: Lisinopril (Zestril) 20 mg PO BID [facility] Last Admin: 10/16/18 20:15 Dose: 20 mg Documented by: Lorazepam (Ativan) 0.5 mg PO Q12HP PRN PRN Reason: Anxiety/ insomnia Stop: 10/19/18 17:01 Last Admin: 10/16/18 21:59 Dose: 0.5 mg Documented by: Magnesium Oxide (Magnesium Oxide) 400 mg PO TID [facility] Last Admin: 10/16/18 20:15 Dose: 400 mg Documented by: [facility] ([facility]) [facility] Last Admin: 10/16/18 08:05 Dose: 500 mg Documented by: Pantoprazole Sodium (Protonix) 40 mg IV BIDAC [facility] Last Admin: 10/16/18 17:06 Dose: 40 mg Documented by: Polyethylene Glycol (Miralax) 17 gm PO BID [facility] Stop: 10/19/18 20:59 Last Admin: 10/16/18 20:12 Dose: 17 gm Documented by: Prednisone (Prednisone) 20 mg PO [facility] Last Admin: 10/16/18 07:58 Dose: 20 mg Documented by: Promethazine HCl (Phenergan) 12.5 mg IV Q4HP PRN PRN Reason: Nausea And Vomiting Last Admin: 10/13/18 07:44 Dose: 12.5 mg Documented by: Sodium Chloride (Saline Flush) 10 ml IV Q8 [facility] Last Admin: 10/17/18 05:35 Dose: 10 ml Documented by: Medical - PN: A/P - Time Spent With Patient Total time spent is greater than 50% in coordination of care (as documented) at patient's floor/unit and/or counseling patient: - Narrative A/P Narrative: A/P *SBO vs Adynamic ileus: NG in place, Management per surgery. Improving. Diet advancing per Surg *Ant Abdominal wall seroma: Noted on CT, drain placed by radiology, still has a 6cm lesion, cultures neg so far , Mangement per surgery. *Weakness/TAcycardia/Dizziness: Pt condition improved, Does have intermittent tachycardia, but HR now much better, *DM: SSI for glucose management. A1c 8.3 -start metformin outpt along with ADA diet *Myasthenia Gravis: on po prednisone 20 am at baseline, was on hydrocortisone 100q8, now switched to IV solumedrol 20mg. *Hypocalcemia: Due to hypoparathyroidsim/polyglandular syndrome, Was supposed to be on calcium supplements and calcitriol, replete calcium prn *Hypomagnesemia: replace prn *Hypertension:BP elevated due to pain/ acute condition, treat underlying condition, if BP goes up too high, will give some hydralazine to help. BP is stable now. *ppx: enoxaparin Medical - PN: Qual - VTE Deep Vein Thrombosis/Pulmonary Embolism Present on Admission: No
[2018-10-17] MEDS: ERYTHROMYCIN BASE 250 MG TABLET PO SCH ×2 (07:25→11:53)
[2018-10-17] MEDS: INSULIN LISPRO 1 UNIT/0.01 ML UNIT SQ SCH ×2 (07:25→11:52)
[2018-10-17] MEDS: PANTOPRAZOLE 40 MG VIAL IV SCH (07:26)
[2018-10-17] MEDS: LEVOTHYROXINE 125 MCG TABLET PO SCH (07:26)
[2018-10-17] MEDS: DULoxetine 30 MG CAPSULE PO SCH (08:47)
[2018-10-17] MEDS: CALCITRIOL 0.25 MCG CAPSULE PO SCH (08:47)
[2018-10-17] MEDS: metFORMIN 500 MG TAB.XL.24H PO SCH (08:47)
[2018-10-17] MEDS: CALCIUM CARBONATE 1,250 MG/5 ML ORAL.SUSP PO SCH (08:48)
[2018-10-17] MEDS: LISINOPRIL 20 MG TABLET PO SCH (08:48)
[2018-10-17] MEDS: ENOXAPARIN 40 MG/0.4 ML SYRINGE SQ SCH (08:48)
[2018-10-17] MEDS: MAGNESIUM OXIDE 400 MG TABLET PO SCH (08:48)
[2018-10-17] MEDS: predniSONE 20 MG TABLET PO SCH (08:48)
[2018-10-17] MEDS: POLYETHYLENE GLYCOL 3350 17 GM PACKET PO SCH (08:48)
--- NOTE | 2018-10-17 13:22 | Discharge Summary ---
Providers - Providers Patient information: Note initiated : 10/17/18 at 1:17 pm Service Date, if different from initiated Date: [] Patient: Dayanna Stephens 57 y/o F admitted on 10/08/18 for Abd pain. Chief Complaint: [] Date of admission: 10/08/18 Discharge date: 10/17/18 Attending physician: [facility] Hospital course: 57-year-old female with known history of chronic intestinal pseudoobstruction. Patient has had multiple hospitalizations for exacerbation of her intestinal pseudoobstruction. She was told well but was taken off of erythromycin by mouth for 10 days prior to admission. She presented to the emergency room with a distended abdomen with findings of massively dilated small bowel and colon filled with stool. It was felt that she will respond to nonoperative treatment that she was managed accordingly. She was placed back on her oral erythromycin and after about 2 days she started having bowel movements. Over the next 4 days she evacuated 4700 cc measured and liquid stool. Patient is doing well from a GI standpoint at this time. The patient had tachycardia associated with her pseudoobstruction exacerbation. This usually occurs and as anticipated and she evacuated her colon her tachycardia improved. She has stable heart rate at this time. Patient is eating a regular diet and has no complaints. She is discharged home and will have follow-up in the office in 2 weeks. She will continue the MiraLAX as well as erythromycin by mouth. She does not need additional medications other than her chronic maintenance medications. Discharge diagnosis: chronic intestinal pseudoobstruction Secondary discharge diagnosis: Fecal impaction Chronic tachycardia with exacerbation Seroma of left lower abdominal wall Diabetes mellitus Myasthenia gravis Reason for admission: abdominal pain with distention nausea and vomiting Procedures: Percutaneous aspiration anterior abdominal wall fluid collection Pertinent studies/significant findings: CT of abdomen and pelvis with contrast Complications: None Exam Temp Pulse Resp BP Pulse Ox 98.6 F 89 20 126/66 97 10/17/18 11:27 10/17/18 02:52 10/17/18 11:27 10/17/18 11:27 10/17/18 11:27 - General physical appearance well developed, well nourished, no distress, no pain, chronically ill, obese - Eyes PERRL, normal ocular movement - ENT normal pinna, normal nares, normal mucosa, no hearing loss, no congestion - Head Head exam IM: Present: atraumatic, normal inspection, normocephalic - Neck no masses, no bruits, trachea midline, no lymphadenopathy, no venous distension - Cardiovascular Cardiovascular exam IM: Present: normal rate and rhythm. Absent: JVD, systolic murmur - Respiratory normal expansion, normal respiratory effort, clear to auscultation - Abdomen Abdomen: Present: soft, non tender, tender (aabdomen is soft and nontender; good active bowel sounds), bowel sounds Hernia: Present: none - Genitourinary Present: normal external genitalia - Integumentary Present: no rash, no growths, no abnormal pigmentation - Neurologic Present: normal coordination, normal sensation - Musculoskeletal Present: normal gait, normal posture - Psychiatric Present: oriented to time, oriented to person, oriented to place, speech is normal, memory intact Discharge Plan - Patient/Caregiver Discharge Instructions Activity: increase activity as tolerated Diet: Regular Diet Prescriptions: metFORMIN HCL [Metformin HCl] 500 mg PO DAILY #30 tab - Follow up Plan Follow up with: Bertha Currie MD [Physician] - 11/03/18 9:15 am Douglas Haque MD [Primary Care Provider] - Disposition: Home, Self-Care Prognosis: Good Rehab Potential: Good I certify that the patient requires SNF services.: No Overall status at discharge: patient is back to baseline Pending Studies Resuscitation Status Full Code Diet Consistent Carbohydrate Diet Start SatOct 16 700 Benzocaine (Cetacaine) 1 spray TOPICAL PRN PRN PRN Reason: throat pain Last Admin: 10/15/18 02:05 Dose: 1 spray Documented by: Admin: 10/14/18 21:50 Dose: 1 spray Documented by: Admin: 10/14/18 19:18 Dose: 1 spray Documented by: Admin: 10/14/18 17:00 Dose: 1 spray Documented by: Admin: 10/14/18 10:08 Dose: 1 spray Documented by: Admin: 10/14/18 07:25 Dose: 1 spray Documented by: Admin: 10/13/18 21:44 Dose: 1 spray Documented by: Admin: 10/13/18 19:24 Dose: 1 spray Documented by: Admin: 10/13/18 10:31 Dose: 1 spray Documented by: Admin: 10/13/18 04:02 Dose: 1 spray Documented by: Admin: 10/13/18 00:34 Dose: 1 spray Documented by: Admin: 10/12/18 21:53 Dose: 1 spray Documented by: Admin: 10/12/18 05:53 Dose: 1 spray Documented by: Admin: 10/12/18 00:01 Dose: 1 spray Documented by: Admin: 10/11/18 21:12 Dose: 1 spray Documented by: Admin: 10/11/18 19:26 Dose: 1 spray Documented by: Admin: 10/11/18 16:37 Dose: 1 spray Documented by: Admin: 10/11/18 10:56 Dose: 1 spray Documented by: [email or web address] Calcitriol (Rocaltrol) 0.5 mcg PO TID [facility] Admin: 10/17/18 08:47 Dose: 0.5 mcg Documented by: Admin: 10/16/18 20:13 Dose: 0.5 mcg Documented by: Admin: 10/16/18 15:08 Dose: 0.5 mcg Documented by: Admin: 10/16/18 07:57 Dose: 0.5 mcg Documented by: Admin: 10/15/18 20:48 Dose: 0.5 mcg Documented by: Admin: 10/15/18 14:46 Dose: 0.5 mcg Documented by: ZACHARY Calcium Carbonate/Glycine (Calcium Carbonate) 1,250 mg PO BID [facility] Admin: 10/17/18 08:48 Dose: 1,250 mg Documented by: Admin: 10/16/18 20:16 Dose: 1,250 mg Documented by: Admin: 10/16/18 07:58 Dose: 1,250 mg Documented by: Admin: 10/15/18 21:04 Dose: 1,250 mg Documented by: ETHAN Diagnostic Test (Pha) (Accu-Chek) 1 each FS ACHS [facility] Admin: 10/17/18 11:52 Dose: 1 each Documented by: Admin: 10/17/18 07:24 Dose: 1 each Documented by: Admin: 10/16/18 20:16 Dose: 1 each Documented by: Admin: 10/16/18 17:07 Dose: 1 each Documented by: Admin: 10/16/18 11:19 Dose: 1 each Documented by: Admin: 10/16/18 07:59 Dose: 1 each Documented by: Admin: 10/15/18 20:47 Dose: 1 each Documented by: Admin: 10/15/18 17:16 Dose: 1 each Documented by: Admin: 10/15/18 11:36 Dose: 1 each Documented by: Admin: 10/15/18 07:19 Dose: 1 each Documented by: Admin: 10/14/18 20:38 Dose: 1 each Documented by: Admin: 10/14/18 16:21 Dose: 1 each Documented by: Admin: 10/14/18 11:25 Dose: 1 each Documented by: AURORA Duloxetine HCl (Cymbalta) 30 mg PO BID [facility] Last Admin: 10/17/18 08:47 Dose: 30 mg Documented by: Admin: 10/16/18 20:15 Dose: 30 mg Documented by: Admin: 10/16/18 07:58 Dose: 30 mg Documented by: Admin: 10/15/18 20:48 Dose: 30 mg Documented by: ETHAN Enoxaparin Sodium (Lovenox) 40 mg SQ DAILY [facility] Stop: 10/18/18 22:59 Last Admin: 10/17/18 08:48 Dose: 40 mg Documented by: Admin: 10/16/18 07:56 Dose: 40 mg Documented by: Admin: 10/15/18 08:20 Dose: 40 mg Documented by: Admin: 10/14/18 08:57 Dose: 40 mg Documented by: Admin: 10/13/18 09:07 Dose: 40 mg Documented by: [email or web address] Admin: 10/12/18 09:54 Dose: 40 mg Documented by: [email or web address] Admin: 10/11/18 09:01 Dose: 40 mg Documented by: [email or web address] Erythromycin (Erythromycin) 250 mg PO TIDAC [facility] Last Admin: 10/17/18 11:53 Dose: 250 mg Documented by: Admin: 10/17/18 07:25 Dose: 250 mg Documented by: Admin: 10/16/18 17:07 Dose: 250 mg Documented by: Admin: 10/16/18 11:19 Dose: 250 mg Documented by: Admin: 10/16/18 08:05 Dose: 250 mg Documented by: Admin: 10/15/18 17:18 Dose: 250 mg Documented by: Admin: 10/15/18 11:37 Dose: 250 mg Documented by: Admin: 10/15/18 07:18 Dose: 250 mg Documented by: Admin: 10/14/18 17:00 Dose: 250 mg Documented by: Admin: 10/14/18 11:26 Dose: 250 mg Documented by: Admin: 10/14/18 07:26 Dose: 250 mg Documented by: Admin: 10/13/18 17:06 Dose: 250 mg Documented by: [email or web address] Admin: 10/13/18 12:11 Dose: 250 mg Documented by: Admin: 10/13/18 07:48 Dose: 250 mg Documented by: Admin: 10/12/18 17:40 Dose: 250 mg Documented by: [email or web address] Hydromorphone HCl (Dilaudid) 0.5 - 1 mg IV Q2HP PRN PRN Reason: PAIN LEVEL > 6 Last Admin: 10/15/18 07:17 Dose: 0.5 mg Documented by: Admin: 10/15/18 04:59 Dose: 0.5 mg Documented by: [email or web address] Admin: 10/15/18 02:05 Dose: 0.5 mg Documented by: Admin: 10/14/18 21:50 Dose: 0.5 mg Documented by: Admin: 10/14/18 19:37 Dose: 0.5 mg Documented by: Admin: 10/14/18 16:19 Dose: 0.5 mg Documented by: Admin: 10/14/18 13:34 Dose: 0.5 mg Documented by: Admin: 10/14/18 10:08 Dose: 0.5 mg Documented by: Admin: 10/14/18 07:28 Dose: 0.5 mg Documented by: Admin: 10/14/18 03:13 Dose: 0.5 mg Documented by: Admin: 10/13/18 23:36 Dose: 0.5 mg Documented by: Admin: 10/13/18 21:45 Dose: 0.5 mg Documented by: Admin: 10/13/18 18:04 Dose: 0.5 mg Documented by: Admin: 10/13/18 15:49 Dose: 0.5 mg Documented by: Admin: 10/13/18 13:03 Dose: 0.5 mg Documented by: Admin: 10/13/18 10:30 Dose: 0.5 mg Documented by: Admin: 10/13/18 07:09 Dose: 0.5 mg Documented by: Admin: 10/13/18 03:55 Dose: 0.5 mg Documented by: Admin: 10/13/18 00:24 Dose: 0.5 mg Documented by: Admin: 10/12/18 22:06 Dose: 0.5 mg Documented by: Admin: 10/12/18 18:23 Dose: 0.5 mg Documented by: [email or web address] Admin: 10/12/18 15:45 Dose: 0.5 mg Documented by: [email or web address] Admin: 10/12/18 12:01 Dose: 0.5 mg Documented by: [email or web address] Admin: 10/12/18 09:56 Dose: 0.5 mg Documented by: [email or web address] Admin: 10/12/18 07:11 Dose: 0.5 mg Documented by: [email or web address] Admin: 10/12/18 03:27 Dose: 0.5 mg Documented by: Admin: 10/12/18 00:02 Dose: 0.5 mg Documented by: Admin: 10/11/18 19:23 Dose: 0.5 mg Documented by: Admin: 10/11/18 16:33 Dose: 0.5 mg Documented by: [email or web address] Admin: 10/11/18 13:57 Dose: 0.5 mg Documented by: [email or web address] Admin: 10/11/18 10:57 Dose: 0.5 mg Documented by: Admin: 10/11/18 08:40 Dose: 0.5 mg Documented by: Admin: 10/11/18 05:47 Dose: 0.5 mg Documented by: Admin: 10/11/18 02:32 Dose: 0.5 mg Documented by: Admin: 10/10/18 23:48 Dose: 0.5 mg Documented by: Admin: 10/10/18 20:45 Dose: 0.5 mg Documented by: Admin: 10/10/18 17:13 Dose: 0.5 mg Documented by: Admin: 10/10/18 14:14 Dose: 0.5 mg Documented by: ZACHARY Acetaminophen (Ofirmev) 1,000 mg in 100 mls @ 200 mls/hr IV Q6HP PRN PRN Reason: Pain/Fever. Last Infusion: 10/16/18 23:21 Dose: 0 mls/hr Documented by: Admin: 10/16/18 21:59 Dose: 200 mls/hr Documented by: Infusion: 10/16/18 15:39 Dose: 200 mls/hr Documented by: Admin: 10/16/18 15:09 Dose: 200 mls/hr Documented by: Infusion: 10/15/18 23:11 Dose: 200 mls/hr Documented by: Admin: 10/15/18 22:41 Dose: 200 mls/hr Documented by: Infusion: 10/15/18 17:16 Dose: 0 mls/hr Documented by: Admin: 10/15/18 16:30 Dose: 200 mls/hr Documented by: Infusion: 10/14/18 04:10 Dose: 0 mls/hr Documented by: Admin: 10/14/18 03:36 Dose: 200 mls/hr Documented by: Infusion: 10/11/18 22:20 Dose: 0 mls/hr Documented by: Admin: 10/11/18 21:26 Dose: 200 mls/hr Documented by: Infusion: 10/11/18 12:31 Dose: 0 mls/hr Documented by: [email or web address] Admin: 10/11/18 07:54 Dose: 200 mls/hr Documented by: [email or web address] Infusion: 10/11/18 00:54 Dose: 200 mls/hr Documented by: [email or web address] Admin: 10/11/18 00:24 Dose: 200 mls/hr Documented by: Infusion: 10/10/18 18:40 Dose: 0 mls/hr Documented by: Admin: 10/10/18 17:45 Dose: 200 mls/hr Documented by: ZACHARY Ibuprofen (Motrin) 400 mg PO Q4HP PRN PRN Reason: Pain Last Admin: 10/17/18 05:07 Dose: 400 mg Documented by: Admin: 10/16/18 20:15 Dose: 400 mg Documented by: Admin: 10/16/18 15:08 Dose: 400 mg Documented by: Admin: 10/16/18 07:58 Dose: 400 mg Documented by: Admin: 10/15/18 22:41 Dose: 400 mg Documented by: Admin: 10/15/18 17:48 Dose: 400 mg Documented by: Admin: 10/15/18 13:54 Dose: 400 mg Documented by: ZACHARY Insulin Human Lispro (Humalog) 0 unit SQ ACHS [facility]; Protocol Last Admin: 10/17/18 11:52 Dose: 2 units Documented by: Admin: 10/17/18 07:25 Dose: Not Given Documented by: Admin: 10/16/18 20:15 Dose: 2 units Documented by: Admin: 10/16/18 17:07 Dose: 2 units Documented by: Admin: 10/16/18 11:19 Dose: Not Given Documented by: Admin: 10/16/18 07:59 Dose: Not Given Documented by: Admin: 10/15/18 20:47 Dose: Not Given Documented by: Admin: 10/15/18 17:16 Dose: Not Given Documented by: Admin: 10/15/18 11:37 Dose: 2 units Documented by: Admin: 10/15/18 07:19 Dose: Not Given Documented by: Admin: 10/14/18 20:38 Dose: Not Given Documented by: Admin: 10/14/18 16:59 Dose: 3 units Documented by: Admin: 10/14/18 11:26 Dose: 3 units Documented by: AURORA Levothyroxine Sodium (Synthroid) 250 mcg PO QAMID [facility] Last Admin: 10/17/18 07:26 Dose: 250 mcg Documented by: Admin: 10/16/18 07:57 Dose: 250 mcg Documented by: ZACHARY Lisinopril (Zestril) 20 mg PO BID [facility] Last Admin: 10/17/18 08:48 Dose: 20 mg Documented by: Admin: 10/16/18 20:15 Dose: 20 mg Documented by: Admin: 10/16/18 07:57 Dose: 20 mg Documented by: Admin: 10/15/18 20:48 Dose: 20 mg Documented by: ETHAN Lorazepam (Ativan) 0.5 mg PO Q12HP PRN PRN Reason: Anxiety/ insomnia Stop: 10/19/18 17:01 Last Admin: 10/16/18 21:59 Dose: 0.5 mg Documented by: Admin: 10/15/18 20:59 Dose: 0.5 mg Documented by: ETHAN Magnesium Oxide (Magnesium Oxide) 400 mg PO TID [facility] Last Admin: 10/17/18 08:48 Dose: 400 mg Documented by: Admin: 10/16/18 20:15 Dose: 400 mg Documented by: Admin: 10/16/18 15:08 Dose: 400 mg Documented by: Admin: 10/16/18 07:57 Dose: 400 mg Documented by: Admin: 10/15/18 20:48 Dose: 400 mg Documented by: Admin: 10/15/18 14:46 Dose: 400 mg Documented by: ZACHARY [facility] Admin: 10/17/18 08:47 Dose: 500 mg Documented by: Admin: 10/16/18 08:05 Dose: 500 mg Documented by: ZACHARY Pantoprazole Sodium (Protonix) 40 mg IV BIDAC [facility] Last Admin: 10/17/18 07:26 Dose: 40 mg Documented by: Admin: 10/16/18 17:06 Dose: 40 mg Documented by: Admin: 10/16/18 07:58 Dose: 40 mg Documented by: Admin: 10/15/18 17:15 Dose: 40 mg Documented by: Admin: 10/15/18 07:17 Dose: 40 mg Documented by: Admin: 10/14/18 16:59 Dose: 40 mg Documented by: Admin: 10/14/18 07:28 Dose: 40 mg Documented by: Admin: 10/13/18 17:08 Dose: 40 mg Documented by: [email or web address] Admin: 10/13/18 07:09 Dose: 40 mg Documented by: Admin: 10/12/18 17:14 Dose: 40 mg Documented by: [email or web address] Admin: 10/12/18 07:13 Dose: 40 mg Documented by: [email or web address] Admin: 10/11/18 16:32 Dose: 40 mg Documented by: [email or web address] Admin: 10/11/18 07:29 Dose: 40 mg Documented by: [email or web address] Admin: 10/10/18 17:14 Dose: 40 mg Documented by: ZACHARY Polyethylene Glycol (Miralax) 17 gm PO BID [facility] Stop: 10/19/18 20:59 Last Admin: 10/17/18 08:48 Dose: 17 gm Documented by: Admin: 10/16/18 20:12 Dose: 17 gm Documented by: Admin: 10/16/18 07:56 Dose: 17 gm Documented by: Admin: 10/15/18 20:48 Dose: 17 gm Documented by: Admin: 10/15/18 08:19 Dose: 17 gm Documented by: Admin: 10/14/18 20:44 Dose: 17 gm Documented by: ETHAN [facility]) [facility]: 10/17/18 08:48 Dose: 20 mg Documented by: Admin: 10/16/18 07:58 Dose: 20 mg Documented by: ZACHARY Promethazine HCl (Phenergan) 12.5 mg IV Q4HP PRN PRN Reason: Nausea And Vomiting Last Admin: 10/13/18 07:44 Dose: 12.5 mg Documented by: Admin: 10/12/18 13:36 Dose: 12.5 mg Documented by: [email or web address] Admin: 10/12/18 03:51 Dose: 12.5 mg Documented by: Admin: 10/11/18 21:27 Dose: 12.5 mg Documented by: Admin: 10/11/18 09:25 Dose: 12.5 mg Documented by: [email or web address] Admin: 10/10/18 21:17 Dose: 12.5 mg Documented by: Admin: 10/10/18 14:15 Dose: 12.5 mg Documented by: ZACHARY Sodium Chloride (Saline Flush) 10 ml IV Q8 [facility] Last Admin: 10/17/18 05:35 Dose: 10 ml Documented by: Admin: 10/16/18 22:38 Dose: 10 ml Documented by: [email or web address] Admin: 10/16/18 15:08 Dose: 10 ml Documented by: Admin: 10/16/18 07:59 Dose: 10 ml Documented by: Admin: 10/15/18 20:49 Dose: 10 ml Documented by: Admin: 10/15/18 14:46 Dose: 10 ml Documented by: Admin: 10/15/18 04:42 Dose: Not Given Documented by: Admin: 10/14/18 21:38 Dose: Not Given Documented by: Admin: 10/14/18 13:34 Dose: Not Given Documented by: Admin: 10/14/18 05:21 Dose: Not Given Documented by: Admin: 10/13/18 20:47 Dose: Not Given Documented by: Admin: 10/13/18 18:55 Dose: 10 ml Documented by: Admin: 10/13/18 14:48 Dose: Not Given Documented by: Admin: 10/13/18 05:45 Dose: 10 ml Documented by: Admin: 10/12/18 21:52 Dose: 10 ml Documented by: Admin: 10/12/18 13:17 Dose: 10 ml Documented by: Admin: 10/12/18 05:52 Dose: 10 ml Documented by: Admin: 10/11/18 21:11 Dose: Not Given Documented by: Admin: 10/11/18 14:03 Dose: Not Given Documented by: [email or web address] Admin: 10/11/18 05:50 Dose: 10 ml Documented by: Admin: 10/10/18 22:26 Dose: Not Given Documented by: Admin: 10/10/18 13:59 Dose: 10 ml Documented by: ZACHARY Shift Summary 10/17/18 01:15 Shift Summary by Rosana Goins AOx4. VSS on RA. Up ad rainer in room. Self care for LUQ ostomy. Bulb drain in place; flush as ordered 10cc qshift. GI soft diet. HS BG 180 requiring coverage. Voiding without issue. Received Ofirmev 1x + ibuprofen 1x so far this shift for pain. L CW port SL. Flushes without issue but no blood return upon ass essment. Patient states "thats how it always is". Currently resting in bed without complaint. Initialized on 10/17/18 01:15 - END OF NOTE
[2018-10-17] MEDS ORDERED: HEPARIN SODIUM,PORCINE/PF 500 UNIT/5 ML SYRINGE IV ONE (13:33)
== END 2018-10-17 15:00 | disposition home or self-care (01) | DRG 392 ==
LOC: ED 16:04 → MEDSUR 22:48 → ICU 10-09 04:47 → MEDSUR 10-10 13:43
PROVIDERS: ADMIT Surgery; ATTEND Family Medicine Adult Medicine

== ENCOUNTER 2018-10-21 16:38 | Inpatient (IN) ==
[2018-10-21] MEDS ORDERED: IOPAMIDOL 100 ML BOTTLE IV ONE ×2 (16:39)
--- NOTE | 2018-10-21 17:19 | Emergency Department Note ---
Abdominal Pain HPI - General Chief Complaint: Abdominal Pain Stated Complaint: abd pain, bloating, vomiting Time Seen by Provider: 10/21/18 16:46 Source: patient Mode of arrival: wheelchair Limitations: no limitations - History of Present Illness HPI Narrative: Patient was admitted on 10/08/18 and discharged on 10/17/18 for small bowel obstruction. Apparently patient has slow motility due to her myasthenia gravis and has chronic problems with partial obstructions. She has had multiple surgeries for these obstructions in the past was hernia repairs. He has ostomy bag in the left lower quadrant. She does have some output but it has decreased in nature. She has had vomiting since noon today and abdominal pain in the mid abdominal region. She is only been home 4 days since her discharge she has had to be readmitted in the past similar to these episodes. She is a patient of Dr. Currie and he has her on erythromycin to help loosen the stools.Her temperature is 97.1 the pulse initially was 154 it is down to 138 at this time respiratory rate is 22 blood pressure 133/102 pulse ox is 98% pain is rated as a 7/10 - Related Data Home Medications Medication Instructions Recorded Confirmed DULoxetine [Cymbalta] 30 mg PO BID 11/30/16 10/08/18 Levothyroxine [Synthroid] 250 mcg PO QAMAC 08/20/17 10/08/18 Acetaminophen W/Codeine #3 2 cap PO Q4-6HP PRN 09/18/17 10/08/18 [Tylenol #3] Naproxen (Pp) [Aleve 220Mg (Pp)] 2 tab PO BID PRN 09/18/17 10/08/18 Polyethylene Glycol 3350 [Miralax] 17 gm PO BID 09/18/17 10/08/18 calcitriol 0.25 mcg capsule 0.5 mcg PO TID cap 11/05/17 10/08/18 nitroglycerin 0.4 mg sublingual 0.4 mg SUBLINGUAL Q5M PRN 11/05/17 10/08/18 tablet Previous Rx's Medication Instructions Recorded predniSONE [Prednisone] 20 mg PO QAC #4 tab 05/18/16 Lisinopril [Zestril] 20 mg PO BID #60 tab 12/06/17 Promethazine [Phenergan] 25 mg MT Q4HP PRN #30 supp.rect 01/08/18 Calcium Carbonate 1,250 mg PO BID #350 oral.susp 07/12/18 Magnesium Oxide 400 mg PO TID #90 tab 07/12/18 Vitamin D3 800 unit PO DAILY #0 tab 07/12/18 Erythromycin Base [Erythromycin] 250 mg PO Q6H #100 capsule. 08/18/18 meperidine 50 mg tablet 50 mg PO Q6H PRN #90 tab 08/22/18 metFORMIN HCL [Metformin HCl] 500 mg PO DAILY #30 tab 10/17/18 Allergies Allergy/AdvReac Type Severity Reaction Status Date / Time Sulfa (Sulfonamide Allergy Severe Anaphylaxis Verified 10/21/18 16:41 Antibiotics) adhesive tape AdvReac Mild Blister Verified 10/21/18 16:41 metoclopramide [From Reglan] AdvReac Mild Anxiety Verified 10/21/18 16:41 steri strips Allergy Severe Blister Uncoded 09/16/18 10:07 Review of Systems All systems ED: reviewed and negative except as stated. Constitutional: Denies: fever, chills Gastrointestinal: Reports: abdominal pain, nausea, vomiting. Denies: diarrhea, constipation, hematochezia, melena Genitourinary: Denies: dysuria, urgency Musculoskeletal: Reports: back pain Integumentary: Denies: rash Neurological: Denies: headache Psychiatric: Denies: anxiety Endocrine: Denies: fatigue Hematological/Lymphatic: Denies: easy bleeding Allergic/Immunologic: Denies: facial swelling Abdominal Pain PMH - Past Medical History PMFSH Narrative: All Active Problems (Last Reviewed 10/01/18 @ 11:22 by Bertha Currie MD) Sepsis associated hypotension (Acute) Small bowel obstruction (Acute) Fecal impaction (Acute) Abdominal wound dehiscence (Acute) Chronic use of steroids (Chronic) Small bowel obstruction due to adhesions (Acute) Chronic intestinal pseudo-obstruction (Acute) Nausea & vomiting (Acute) Abdominal pain (Acute) Bowel obstruction (Acute) Nausea (Acute) Small bowel obstruction (Acute) Encounter for care related to Port-a-Cath (Chronic) Hypocalcemia (Acute) Ileus (Acute) Abnormal liver enzymes (Acute) Obstruction of descending colon (Acute) Small bowel obstruction due to postoperative adhesions (Acute) Foot sprain (Acute) Anaphylaxis (Acute) Adverse reaction to drug (Acute) Severe sepsis (Acute) Pyelonephritis (Acute) Pneumonia (Acute) Myasthenia gravis (Acute) Polyglandular autoimmune syndrome (Chronic) Sarcoidosis (Acute) Achalasia and cardiospasm (Acute) Hypothyroidism (Acute) UTI (urinary tract infection) (Acute) Infiltrate of lung present on imaging of chest (Acute) Small bowel obstruction, partial (Acute) Pancreatitis (Acute) Myasthenia gravis (Acute) Constipation due to pain medication therapy (Chronic) Supraventricular tachycardia (Acute) 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) Small bowel obstruction (Acute) Chronic intestinal pseudo-obstruction (Acute) Hypertension (Chronic) Past Surgical History (Last Reviewed 10/01/18 @ 11:22 by Bertha Currie MD) History of exploratory laparotomy (Acute) History of exploratory laparotomy (Acute) History of exploratory laparotomy (Acute) History of exploratory laparotomy (Acute) Family History (Last Reviewed 10/01/18 @ 11:22 by Bertha Currie MD) Father CAD (coronary artery disease) Mother CAD (coronary artery disease) Grandfather CVA (cerebral vascular accident) Grandmother CVA (cerebral vascular accident) Medical history: Reports: COPD, hypertension, hypothyroidism, other (Connective tissue diseases: Sjogren's, sarcoidosis, myasthenia gravis. Achalasia. Small bowel obstructions. 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 SVT. Chronic prednisone.). 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 Uncle with brain cancer. Mother with diabetes. Both parents of myocardial infarctions in their 50s.) - Social History Smoking status: Former smoker Alcohol use: Reports: None Drug use: Reports: none. Denies: marijuana Physical Exam Limitations: no limitations General appearance: alert Head: atraumatic Eye: Present: normal appearance, PERRL ENT: normal exam, normal oropharynx Neck: Present: normal inspection, full ROM Chest: Present: normal inspection Respiratory: Present: normal lung sounds bilaterally Cardiovascular: Present: regular rate, normal rhythm Abdominal: Present: distention, tenderness, hypoactive bowel sounds Abdominal tenderness: Present: diffuse Extremities: Present: normal inspection, full ROM. Absent: tenderness Back: Present: normal inspection, full ROM. Absent: tenderness Course Vital Signs Temperature 97.1 F 10/21/18 16:39 Pulse Rate 154 H 10/21/18 16:39 Respiratory Rate 22 10/21/18 16:39 Blood Pressure 133/102 10/21/18 16:39 Pulse Oximetry (%) 98 10/21/18 16:39 Temperature 97.1 F 10/21/18 16:39 Pulse Rate 119 H 10/21/18 21:17 Respiratory Rate 22 10/21/18 16:39 Blood Pressure 121/77 10/21/18 21:17 Pulse Oximetry (%) 96 10/21/18 21:17 Abdominal Pain - MDM Narrative Medical decision making narrative: UBC is 18,200 8610 lymphocytes, hemoglobin is 12.5 hematocrit of 40.2 sodium is 137 the potassium 4.4 BUN is 19 creatinine 1.9 glucose [address] of the abdomen reveals no bowel obstruction mid jejunum NG tube is been insertedCounts 8200 hemoglobin is 12.5 hematocrit 40.2 sodium is 137 potassium 4.4 glucose is 207 BUN is 19 the creatinine 0.9 urine test is negative. The CT of the abdomen shows a small bowel obstruction. Dr. Currie contacted NG tube to be placed patient to be put on Reglan 10 mg every 6 hours and patient to be admitted - Lab Data Result diagrams: 10/21/18 17:42 10/21/18 17:41 Lab Results 10/21/18 10/21/18 10/21/18 Range/Units 17:15 17:41 17:42 WBC 18.2 H (4.5-11.0) K/mcL RBC 5.04 (4.00-5.20) M/mcL Hgb 12.5 (12.0-15.0) g/dL Hct 40.2 (36.0-48.0) % POC Hct (36.0-48.0) % MCV 79.7 L (80.0-100.0) fL MCH 24.9 L (26.0-34.0) pg MCHC 31.2 (31.0-36.0) g/dL RDW 16.1 H (11.5-14.5) % Plt Count 561 H (140-440) K/mcL MPV 8.4 (7.4-10.4) fL Total Counted 100 Seg Neutrophils % 80 H (38-78) % Band Neutrophils % Not Reportable Lymphocytes % 14 L (15-49) % Monocytes % (Manual) 6 (1-12) % Platelet Estimate Increased (NORMAL) RBC Morphology Abnormal (NORMAL) Hypochromasia 1+ A (NONE SEEN) Anisocytosis 1+ A (NONE SEEN) Microcytosis 1+ A (NONE SEEN) POC Sodium (133-145) mmol/L Sodium 137 (133-145) mmol/L POC Potassium (3.3-5.1) mmol/L Potassium 4.4 (3.3-5.1) mmol/L POC Chloride (96-108) mmol/L Chloride 90 L (96-108) mmol/L Carbon Dioxide 28 (22-30) mmol/L POC Total CO2 (22-30) mmol/L Anion Gap 19.0 H (8-16) POC BUN (6-20) mg/dl BUN 18 (6-20) mg/dl Creatinine 0.9 (0.6-1.1) mg/dl POC Creatinine (0.6-1.1) mg/dl GFR Calculation 71 Glucose 205 H (70-105) mg/dL POC Glucose (70-105) mg/dL Calcium 9.6 (8.6-10.4) mg/dl POC WB Ioniz Calcium (1.16-1.32) mmol/L Total Bilirubin 0.2 (0.0-1.0) mg/dL AST 22 (0-37) U/l ALT 24 (0-40) U/l Alkaline Phosphatase 106 (39-117) U/L Total Protein 7.8 (5.9-8.4) gm/dL Albumin 4.3 (3.2-5.2) gm/dL Globulin 3.5 (2.2-3.7) gm/dL Albumin/Globulin Ratio 1.2 (1.0-2.3) Urine Color Straw Urine Appearance Clear Urine pH 7.0 (5.0-9.0) Ur Specific [place] 1.010 (1.000-1.035) Urine Protein Neg (NEG) mg/dL Urine Glucose (UA) Negative (NEG) mg/dL Urine Ketones Neg (NEG) mg/dL Urine Occult Blood Neg (<0.03) mg/dL Urine Nitrate Neg (NEG) Urine Bilirubin Neg (NEG) mg/dL Urine Urobilinogen Neg (NEG) mg/dL Ur Leukocyte Esterase Neg (NEG) /uL Urine RBC < 1 (0-1) /hpf Urine WBC 1 (0-4) /hpf Ur Squamous Epith Cells 1 (0-4) /hpf Urine Bacteria 0 (0) /hpf Urine Mucus Few (0) /hpf Ur Culture Indicated? No 10/21/18 Range/Units 17:51 WBC (4.5-11.0) K/mcL RBC (4.00-5.20) M/mcL Hgb (12.0-15.0) g/dL Hct (36.0-48.0) % POC Hct 42.0 (36.0-48.0) % MCV (80.0-100.0) fL MCH (26.0-34.0) pg MCHC (31.0-36.0) g/dL RDW (11.5-14.5) % Plt Count (140-440) K/mcL MPV (7.4-10.4) fL Total Counted Seg Neutrophils % (38-78) % Band Neutrophils % Lymphocytes % (15-49) % Monocytes % (Manual) (1-12) % Platelet Estimate (NORMAL) RBC Morphology (NORMAL) Hypochromasia (NONE SEEN) Anisocytosis (NONE SEEN) Microcytosis (NONE SEEN) POC Sodium 137 (133-145) mmol/L Sodium (133-145) mmol/L POC Potassium 4.4 (3.3-5.1) mmol/L Potassium (3.3-5.1) mmol/L POC Chloride 96 (96-108) mmol/L Chloride (96-108) mmol/L Carbon Dioxide (22-30) mmol/L POC Total CO2 28 (22-30) mmol/L Anion Gap (8-16) POC BUN 19 (6-20) mg/dl BUN (6-20) mg/dl Creatinine (0.6-1.1) mg/dl POC Creatinine 0.9 (0.6-1.1) mg/dl GFR Calculation Glucose (70-105) mg/dL POC Glucose 207 H (70-105) mg/dL Calcium (8.6-10.4) mg/dl POC WB Ioniz Calcium 1.07 L (1.16-1.32) mmol/L Total Bilirubin (0.0-1.0) mg/dL AST (0-37) U/l ALT (0-40) U/l Alkaline Phosphatase (39-117) U/L Total Protein (5.9-8.4) gm/dL Albumin (3.2-5.2) gm/dL Globulin (2.2-3.7) gm/dL Albumin/Globulin Ratio (1.0-2.3) Urine Color Urine Appearance Urine pH (5.0-9.0) Ur Specific [place] (1.000-1.035) Urine Protein (NEG) mg/dL Urine Glucose (UA) (NEG) mg/dL Urine Ketones (NEG) mg/dL Urine Occult Blood (<0.03) mg/dL Urine Nitrate (NEG) Urine Bilirubin (NEG) mg/dL Urine Urobilinogen (NEG) mg/dL Ur Leukocyte Esterase (NEG) /uL Urine RBC (0-1) /hpf Urine WBC (0-4) /hpf Ur Squamous Epith Cells (0-4) /hpf Urine Bacteria (0) /hpf Urine Mucus (0) /hpf Ur Culture Indicated? Disposition Pt seen by [employer] P[employer]KER/PA only: No Clinical Impression: Small bowel obstruction Disposition: Xfer As Inpt ([facility]) Condition: Fair Referrals: Douglas Haque MD [Primary Care Provider] - Time of Disposition: 21:28
[2018-10-21] MEDS ORDERED: 0.9 % SODIUM CHLORIDE 1,000 ML IV ONE (17:20)
[2018-10-21] MEDS ORDERED: ONDANSETRON 4 MG/2 ML VIAL IV ONE (17:20)
[2018-10-21] MEDS: HYDROmorphone 2 MG/ML VIAL IV PRN ×3 (17:45→21:38)
[2018-10-21 18:27] LABS: Appearance,Urine CLEAR; Bacteria,Urine 0 /hpf (0); Bilirubin,Urine NEG (NEG); Color,Urine STRAW; Glucose,Urine (UA) NEGATIVE (NEG); Leukocyte Esterase,Urine NEG /uL (NEG); Mucus,Urine FEW /hpf (0); Protein,Urine NEG (NEG); Urine Blood NEG mg/dL (<0.03); Urine RBC < 1 /hpf (0-1); Urine Squamous Epithelial Cell 1 /hpf (0-4); Urine WBC 1 /hpf (0-4); Urobilinogen,Urine NEG (NEG)
[2018-10-21 18:31] LABS: Mean Cell Volume 79.7 fL (80.0-100.0); Mean Corpuscular HGB Conc 31.2 g/dL (31.0-36.0); Platelet Count 561 K/mcL (140-440); RBC 5.04 M/mcL (4.00-5.20); Red Cell Distribution Width 16.1 % (11.5-14.5)
[2018-10-21 18:43] LABS: ALT/SGPT 24 U/l (0-40); Albumin 4.3 gm/dL (3.2-5.2); Albumin/Globulin Ratio 1.2 (1.0-2.3); Alkaline Phosphatase 106 U/L (39-117); Blood Urea Nitrogen 18 mg/dl (6-20)
[2018-10-21] MEDS ORDERED: PROMETHAZINE 25 MG/ML VIAL IV ONE (18:47)
[2018-10-21 19:03] LABS: Anisocytosis 1+ (NONE SEEN); Hypochromasia 1+ (NONE SEEN); Lymphocytes % 14 % (15-49); Monocytes % (Manual) 6 % (1-12); Platelet Estimate INCREASED (NORMAL); RBC Morphology ABNORMAL (NORMAL); Segmented Neutrophils % 80 % (38-78)
[2018-10-21] MEDS ORDERED: LIDOCAINE JEL 2% 1 TUBE 30GM TOPICAL ONE (19:21)
[2018-10-21] MEDS ORDERED: METOCLOPRAMIDE 10 MG/2 ML VIAL IV SCH (21:30)
[2018-10-21] MEDS ORDERED: ONDANSETRON 4 MG/2 ML VIAL IV PRN (21:34)
[2018-10-21] MEDS ORDERED: 0.9 % SODIUM CHLORIDE 1,000 ML IV SCH (21:45)
[2018-10-22] MEDS: HYDROmorphone 2 MG/ML VIAL IV PRN ×7 (00:34→21:32)
--- NOTE | 2018-10-22 03:38 | XRay Report ---
CLINICAL INFORMATION: NG placement COMPARISON: None. FINDINGS: NG sidehole overlies the proximal gastric body. Stomach, duodenum and proximal/mid small bowel are mildly dilated compatible with recurrent small bowel obstruction. The distal small bowel and residual colon are relatively decompressed. No free air or soft tissue mass IMPRESSION: NG sidehole overlying the proximal gastric body. Partial recurrent mid small bowel obstruction pattern Interpreted and Authenticated by: All Lundberg 10/22/18
[2018-10-22] MEDS ORDERED: 0.9 % SODIUM CHLORIDE 500 ML IV ONE (06:54)
[2018-10-22] MEDS: 0.9 % SODIUM CHLORIDE 1,000 ML IV SCH ×2 (07:17→11:46)
[2018-10-22] MEDS: DULoxetine 30 MG CAPSULE PO SCH ×2 (08:16→21:33)
[2018-10-22] MEDS: MAGNESIUM OXIDE 400 MG TABLET PO SCH ×3 (08:16→21:33)
[2018-10-22] MEDS: LEVOTHYROXINE 125 MCG TABLET PO SCH (08:16)
[2018-10-22] MEDS: metFORMIN 500 MG TABLET PO SCH (08:16)
[2018-10-22] MEDS: predniSONE 20 MG TABLET PO SCH (08:16)
[2018-10-22] MEDS: PYRIDOSTIGMINE 60 MG TABLET PO SCH ×3 (09:40→21:48)
--- NOTE | 2018-10-22 12:17 | General Surg History&Physical ---
History of Present Illness Patient information: Note initiated : 10/22/18 at 12:15 pm Service Date, if different from initiated Date: [] Patient: Dayanna Stephens a 57 y/o F admitted on 10/21/18 for abd pain, bloating, vomiting. Chief Complaint: [] HPI: Ms. Stephens is a 57 year old F who is readmitted for severe intestinal pseudoobstruction. She has a long history of chronic intestinal pseudoobstruction and has had multiple hospitalizations due to exacerbation of her condition. She was last admitted 08 October --November 01 for similar problems. She has a 24-hour history of severe crampy abdominal pain with abdominal distention nausea vomiting and decreased output through her stoma. She was brought to the emergency room where CT scan shows dilated proximal bowel with a right colon filled with stool with some scattered gas in her distal colon leading up to her stoma in the left lower quadrant. Patient was admitted last evening and started on nasogastric decompression. She feels better now. She will be admitted and will be started on oral Mestinon in an attempt to find an agent that will stimulate her bowel to empty. Review of Systems - Constitutional chills, fatigue, malaise, weakness, weight loss - EENT Nose, mouth and throat: no headache(s), no sore throat, no throat swelling, no vertigo - Cardiovascular no chest pain with activity, no diaphoresis, no dyspnea on exertion, no palpatations, no rapid heart rate, no syncope - Respiratory no dyspnea on exertion, no wheezing, no chest congestion - Gastrointestinal abdominal pain, bloating, cramping, diarrhea, early satiety, heartburn, nausea, vomiting - Genitourinary Genitourinary: no difficulty urinating, no dysuria, no nocturia - Musculoskeletal myalgias, no arthralgias, no numbness, no stiffness - Integumentary no non-healing lesions, no pruritus, no rash - Neurological dizziness, headache(s), weakness, no convulsions - Psychiatric anxiety, depression, irritability - Endocrine no fatigue, no palpitations - Hematologic/Lymphatic no easy bleeding, no easy bruising, no lymphadenopathy - Allergic/Immunologic no tongue swelling, no throat swelling, no uticaria, no wheezing, no lip swelling Past History Past medical history: Chronic intestinal pseudoobstruction History of myasthenia gravis Polyglandular autoimmune syndrome History sarcoidosis Hypothyroidism. Past surgical history: Exploratory laparotomy with adhesion lysis 4 Sigmoid colon resection for volvulus with obstruction Incisional hernia repair with mesh Past family history: Coronary artery disease History of stroke Past social history: Disabled Never smoker Medications and Allergies Home Medications Medication Instructions Recorded Confirmed Type predniSONE [Prednisone] 20 mg PO QAC #4 tab 05/18/16 10/22/18 Rx DULoxetine [Cymbalta] 30 mg PO BID 11/30/16 10/22/18 History Levothyroxine [Synthroid] 250 mcg PO QAMAC 08/20/17 10/22/18 History Acetaminophen W/Codeine #3 2 cap PO Q4-6HP PRN 09/18/17 10/22/18 History [Tylenol #3] Naproxen (Pp) [Aleve 220Mg (Pp)] 2 tab PO BID PRN 09/18/17 10/22/18 History Polyethylene Glycol 3350 [Miralax] 17 gm PO BID 09/18/17 10/22/18 History calcitriol 0.25 mcg capsule 0.5 mcg PO TID cap 11/05/17 10/22/18 History Lisinopril [Zestril] 20 mg PO BID #60 tab 12/06/17 10/22/18 Rx Promethazine [Phenergan] 25 mg [place] Q4HP PRN #30 supp.rect 01/08/18 10/22/18 Rx Calcium Carbonate 1,250 mg PO BID #350 oral.susp 07/12/18 10/22/18 Rx Magnesium Oxide 400 mg PO TID #90 tab 07/12/18 10/22/18 Rx Erythromycin Base [Erythromycin] 250 mg PO Q6H #100 capsule.dr 08/18/18 10/22/18 Rx metFORMIN HCL [Metformin HCl] 500 mg PO DAILY #30 tab 10/17/18 10/22/18 Rx Allergies Allergy/AdvReac Type Severity Reaction Status Date / Time Sulfa (Sulfonamide Allergy Severe Anaphylaxis Verified 10/21/18 16:41 Antibiotics) adhesive tape AdvReac Mild Blister Verified 10/21/18 16:41 metoclopramide [From Reglan] AdvReac Mild Anxiety Verified 10/21/18 16:41 steri strips Allergy Severe Blister Uncoded 09/16/18 10:07 Exam Temp Pulse Resp BP Pulse Ox 97.8 F 106 H 18 125/77 96 10/22/18 11:38 10/22/18 11:38 10/22/18 11:38 10/22/18 11:38 10/22/18 11:38 - General physical appearance well developed, well nourished, no distress, chronically ill, obese - Eyes PERRL, normal ocular movement - ENT normal pinna, normal nares, normal mucosa, no hearing loss, no congestion - Head Head exam IM: Present: atraumatic, normocephalic - Neck no masses, no bruits, trachea midline, no lymphadenopathy, no venous distension - Cardiovascular Cardiovascular exam IM: Present: normal rate and rhythm, +S1, +S2, tachycardia. Absent: irregular rhythm, JVD, systolic murmur - Respiratory normal expansion, normal respiratory effort, clear to auscultation - Abdomen Abdomen: Present: soft, tender (abdomen is generally soft; good active bowel sounds; stoma left lower quadrantActive bowel soundsHealed surgical scar), bowel sounds Hernia: Present: none - Genitourinary Present: normal external genitalia - Integumentary Present: no rash, no growths, no abnormal pigmentation - Neurologic Present: normal coordination, normal sensation - Musculoskeletal Present: normal gait, normal posture - Psychiatric Present: oriented to time, oriented to person, oriented to place, speech is normal, memory intact Assessment and Plan (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 start Mestinon 60 mg 3 times daily Follow-up abdominal x-rays in the morning Advance diet as tolerated starting tomorrow morning Status: Acute (2) Hypocalcemia Status: Acute (3) Ileus Status: Acute (4) Myasthenia gravis Continue home medications Status: Acute (5) Small bowel obstruction due to adhesions Status: Acute (6) Supraventricular tachycardia Continue home medications Status: Acute (7) Constipation due to pain medication therapy Status: Chronic
[2018-10-22] MEDS ORDERED: 0.9 % SODIUM CHLORIDE 1,000 ML IV SCH (15:00)
--- NOTE | 2018-10-22 19:23 | Cat Scan Report ---
CLINICAL INFORMATION: Abdominal pain and distention. History of recurrent small bowel obstruction COMPARISON: None. TECHNIQUE: Following enteric contrast, 80 cc of Isovue-300 were injected intravenously, and 60 seconds later, 0.625 mm helical slices were obtained from the mid heart through the subtrochanteric regions. Following reconstruction, 2.5 mm sagittal, coronal and axial reformatted images were processed and reviewed at bone, lung and soft tissue windows. Five minutes later, 0.625 mm helical slices were obtained from the mid heart through the kidneys and viewed at soft tissue windows.The exam was performed using radiation dose optimization techniques including, but not limited to, automated exposure control, adjustment of the mA and/or kV according to patient size and use of iterative reconstruction technique. FINDINGS: Lung bases show minimal scattered atelectasis. No effusion. The visualized heart is normal. Images through the abdomen show minimal fatty change of the liver, but no focal lesion. The gallbladder is surgically absent. Intrahepatic and common bile ducts are normal caliber the CBD is 5 mm. Both Kidneys, adrenal glands, spleen and aorta are normal. Mild pancreatic atrophy again noted. The stomach, duodenum and multiple loops of jejunum are moderately dilated to a transition point in the left upper quadrant (axial image 88). There appears to be a stricture in this region. The distal small bowel and colon are decompressed. Colostomy in the left lower quadrant with the descending colon swung into this region seen as before. Colostomy appears unremarkable. No free air, free fluid or adenopathy. Images through the pelvis show uterus, ovaries and urinary bladder to be normal. The fluid collection in the deep Camper's fascia in the anterior abdominal wall false pelvis is considerably smaller on today's study now spanning 10 x 2.3 cm. There is a pigtail catheter which is on the left lateral edge of the fluid collection does not appear to be draining fluid and should be removed. Bone windows show no osseous abnormality IMPRESSION: 1. High-grade recurrent jejunal obstruction due to adhesions or stricture in the left upper quadrant. No evidence of bowel perforation or third spacing. 2. Thick-walled fluid collection within Camper's fascia of the left anterior abdominal wall wall. This has decreased now spanning 10 x 2.3 cm. Pigtail catheter is outside of the capsule and does not appear to be draining the fluid. The catheter should be removed or repositioned. 3. Mild pancreatic atrophy - stable Interpreted and Authenticated by: All Lundberg 10/22/18
[2018-10-23] MEDS: 0.9 % SODIUM CHLORIDE 1,000 ML IV SCH ×3 (01:50→11:36)
[2018-10-23] MEDS: HYDROmorphone 2 MG/ML VIAL IV PRN ×7 (03:37→21:18)
--- NOTE | 2018-10-23 07:03 | XRay Report ---
CLINICAL INFORMATION: Follow small bowel obstruction COMPARISON: 10/21/2018 FINDINGS: NG tube is been removed. The stomach and multiple loops of proximal small bowel have decreased in caliber, but remain mildly dilated demonstrating air-fluid levels in the upright film. The distal small bowel and residual colon are decompressed, but do contain moderate amounts of gas. No free air or soft tissue mass IMPRESSION: Improving partial small bowel obstruction Interpreted and Authenticated by: All Lundberg 10/23/18
[2018-10-23] MEDS: metFORMIN 500 MG TABLET PO SCH (07:20)
[2018-10-23] MEDS: LEVOTHYROXINE 125 MCG TABLET PO SCH (07:20)
[2018-10-23] MEDS: predniSONE 20 MG TABLET PO SCH (07:20)
[2018-10-23] MEDS: PYRIDOSTIGMINE 60 MG TABLET PO SCH ×3 (08:54→20:43)
[2018-10-23] MEDS: DULoxetine 30 MG CAPSULE PO SCH ×2 (08:54→20:43)
[2018-10-23] MEDS: MAGNESIUM OXIDE 400 MG TABLET PO SCH ×3 (08:54→20:44)
[2018-10-23 10:05] LABS: Basophils # (Auto) 0 K/mcL (0.0-0.3); Basophils % (Auto) 0.5 % (0.0-2.0); Eosinophils # (Auto) 0.3 K/mcL (0.0-0.7); Eosinophils % (Auto) 3.9 % (0.0-7.0); Granulocytes % (Auto) 61.5 % (38.0-78.0); Lymphocytes # (Auto) 1.9 K/mcL (1.5-4.8); Lymphocytes % (Auto) 25.3 % (15.5-49.0); Mean Cell Volume 79.8 fL (80.0-100.0); Mean Corpuscular HGB Conc 31.5 g/dL (31.0-36.0); Monocytes # (Auto) 0.7 K/mcL (0.1-0.9); Monocytes % (Auto) 8.8 % (1.0-12.0); Platelet Count 367 K/mcL (140-440); RBC 3.64 M/mcL (4.00-5.20); Red Cell Distribution Width 16.4 % (11.5-14.5)
[2018-10-23 10:54] LABS: ALT/SGPT 15 U/l (0-40); Albumin 3.2 gm/dL (3.2-5.2); Albumin/Globulin Ratio 1.3 (1.0-2.3); Alkaline Phosphatase 78 U/L (39-117); Bilirubin,Direct < 0.2 mg/dL (0.0-0.3); Blood Urea Nitrogen 11 mg/dl (6-20); Gamma Glutamyl Transpeptidase 19 U/L (5-36); Uric Acid 5.5 mg/dL (2.5-8.0)
[2018-10-23] MEDS: POLYETHYLENE GLYCOL 3350 17 GM PACKET PO SCH ×2 (11:55→21:01)
[2018-10-23] MEDS: CALCIUM CARBONATE 1,250 MG/5 ML ORAL.SUSP PO SCH ×2 (16:11→21:00)
[2018-10-23] MEDS: CALCITRIOL 0.25 MCG CAPSULE PO SCH ×2 (16:11→21:00)
[2018-10-23] MEDS: ERYTHROMYCIN BASE 250 MG TABLET PO SCH ×2 (16:11→20:43)
--- NOTE | 2018-10-23 17:45 | General Surgery Progress Note ---
Subjective Patient reports: feels better, pain is less, tolerating liquids well, flatus, bowel movement, afebrile Narrative: Note initiated : 10/23/18 at 5:43 pm Service Date, if different from initiated Date: [] Patient: Dayanna Stephens 57 y/o F admitted on 10/21/18 for abd pain, bloating, vomiting. Chief Complaint: [patient continues to improve. She said copious output through her stoma abdominal discomfort has Resolved. She no longer has abdominal distention.] Objective Temp Pulse Resp BP Pulse Ox 97.9 F 83 14 101/62 93 10/23/18 12:00 10/23/18 12:00 10/23/18 12:00 10/23/18 12:00 10/23/18 12:00 - Additional Data Intake & Output - Last 24 hours: Intake & Output 10/21/18 10/22/18 10/23/18 10/24/18 05:59 05:59 05:59 05:59 Intake Total 1000 / 1000 4022 / 4022 2480 / 2480 Output Total 110 / 110 3225 / 3225 1700 / 1700 Balance 890 / 890 797 / 797 780 / 780 Weight 234 lb 8 oz 234 lb 234 lb - General physical appearance well developed, well nourished, no distress - Eyes PERRL, normal ocular movement - ENT normal pinna, normal nares, normal mucosa, no hearing loss, no congestion - Neck no masses, no bruits, trachea midline, no lymphadenopathy, no venous distension - Respiratory normal expansion, normal respiratory effort, clear to auscultation - Cardiovascular Cardiovascular exam: Present: normal rate and rhythm, RRR, +S1, +S2. Absent: irregular rhythm, JVD, tachycardia - Abdomen non tender, bowel sounds (present), surgical scars ( abdominal exam is benign... Stoma in left lower quadrant is functioning appropriately. She has good active bowel sounds), masses (none) - Integumentary no rash, no growths, no abnormal pigmentation - Neurologic normal coordination, normal sensation - Musculoskeletal normal gait, normal posture - Psychiatric oriented to time, oriented to person, oriented to place, speech is normal, memory intact - Labs 10/23/18 08:50 10/23/18 08:50 Diabetes panel 10/23/18 Range/Units 08:50 Sodium 139 (133-145) mmol/L Potassium 3.8 (3.3-5.1) mmol/L Chloride 99 (96-108) mmol/L Carbon Dioxide 28 (22-30) mmol/L BUN 11 (6-20) mg/dl Creatinine 0.8 (0.6-1.1) mg/dl Glucose 165 H (70-105) mg/dL Calcium 6.9 L (8.6-10.4) mg/dl AST 14 (0-37) U/l ALT 15 (0-40) U/l Alkaline Phosphatase 78 (39-117) U/L Total Protein 5.6 L (5.9-8.4) gm/dL Albumin 3.2 (3.2-5.2) gm/dL Triglycerides 403 H (<150) mg/dl Calcium panel 10/23/18 Range/Units 08:50 Calcium 6.9 L (8.6-10.4) mg/dl Phosphorus 2.6 L (2.7-4.5) mg/dL Albumin 3.2 (3.2-5.2) gm/dL Pituitary panel 10/23/18 Range/Units 08:50 Sodium 139 (133-145) mmol/L Potassium 3.8 (3.3-5.1) mmol/L Chloride 99 (96-108) mmol/L Carbon Dioxide 28 (22-30) mmol/L BUN 11 (6-20) mg/dl Creatinine 0.8 (0.6-1.1) mg/dl Glucose 165 H (70-105) mg/dL Calcium 6.9 L (8.6-10.4) mg/dl Adrenal panel 10/23/18 Range/Units 08:50 Sodium 139 (133-145) mmol/L Potassium 3.8 (3.3-5.1) mmol/L Chloride 99 (96-108) mmol/L Carbon Dioxide 28 (22-30) mmol/L BUN 11 (6-20) mg/dl Creatinine 0.8 (0.6-1.1) mg/dl Glucose 165 H (70-105) mg/dL Calcium 6.9 L (8.6-10.4) mg/dl Total Bilirubin 0.2 (0.0-1.0) mg/dL AST 14 (0-37) U/l ALT 15 (0-40) U/l Alkaline Phosphatase 78 (39-117) U/L Total Protein 5.6 L (5.9-8.4) gm/dL Albumin 3.2 (3.2-5.2) gm/dL Assessment and Plan (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 Status: Acute Assessment and plan: Clinically resolving after institution of Mestinon therapy Current Visit: Yes (2) Hypocalcemia Status: Acute Assessment and plan: Home medications restarted Current Visit: No (3) Ileus Status: Acute Current Visit: No (4) Myasthenia gravis Status: Acute Current Visit: No (5) Small bowel obstruction due to adhesions Status: Resolved Current Visit: No (6) Supraventricular tachycardia Status: Resolved Current Visit: No (7) Constipation due to pain medication therapy Status: Chronic Current Visit: No - Time Spent With Patient Total time spent is greater than 50% in coordination of care (as documented) at patient's floor/unit and/or counseling patient:
[2018-10-23] MEDS: oxyCODONE/APAP 10/325MG TABLET PO PRN ×2 (19:29→23:27)
[2018-10-23] MEDS: LISINOPRIL 20 MG TABLET PO SCH (20:43)
[2018-10-24] MEDS: ERYTHROMYCIN BASE 250 MG TABLET PO SCH ×3 (00:45→13:11)
[2018-10-24] MEDS: oxyCODONE/APAP 10/325MG TABLET PO PRN ×3 (03:51→12:20)
[2018-10-24] MEDS: POLYETHYLENE GLYCOL 3350 17 GM PACKET PO SCH ×2 (03:51→12:20)
--- NOTE | 2018-10-24 07:05 | XRay Report ---
CLINICAL INFORMATION: FOLLOW -UP OF SMALL BOWEL OBSTRUCTION COMPARISON: 10/23/2018 FINDINGS: NG tube is out. Stomach and multiple loops of proximal small bowel only minimally dilated and contained air-fluid levels. There is increasing gas in the distal small bowel and colon. No free air or soft tissue mass IMPRESSION: Improving partial small bowel obstruction Interpreted and Authenticated by: All Lundberg 10/24/18
[2018-10-24] MEDS: LEVOTHYROXINE 125 MCG TABLET PO SCH (07:35)
[2018-10-24] MEDS: predniSONE 20 MG TABLET PO SCH (07:35)
[2018-10-24] MEDS: metFORMIN 500 MG TABLET PO SCH (07:35)
[2018-10-24] MEDS: CALCITRIOL 0.25 MCG CAPSULE PO SCH ×2 (09:46→15:53)
[2018-10-24] MEDS: PYRIDOSTIGMINE 60 MG TABLET PO SCH ×2 (09:46→15:53)
[2018-10-24] MEDS: HYDROmorphone 2 MG/ML VIAL IV PRN ×2 (09:46→13:37)
[2018-10-24] MEDS: LISINOPRIL 20 MG TABLET PO SCH (09:47)
[2018-10-24] MEDS: DULoxetine 30 MG CAPSULE PO SCH (09:47)
[2018-10-24] MEDS: MAGNESIUM OXIDE 400 MG TABLET PO SCH ×2 (09:47→15:53)
[2018-10-24] MEDS: CALCIUM CARBONATE 1,250 MG/5 ML ORAL.SUSP PO SCH (09:47)
[2018-10-24 09:57] LABS: Basophils # (Auto) 0 K/mcL (0.0-0.3); Basophils % (Auto) 0.6 % (0.0-2.0); Eosinophils # (Auto) 0.3 K/mcL (0.0-0.7); Eosinophils % (Auto) 4.5 % (0.0-7.0); Granulocytes % (Auto) 45.5 % (38.0-78.0); Lymphocytes # (Auto) 2.7 K/mcL (1.5-4.8); Lymphocytes % (Auto) 37.4 % (15.5-49.0); Mean Cell Volume 80.7 fL (80.0-100.0); Mean Corpuscular HGB Conc 31.2 g/dL (31.0-36.0); Monocytes # (Auto) 0.9 K/mcL (0.1-0.9); Platelet Count 373 K/mcL (140-440); RBC 3.73 M/mcL (4.00-5.20); Red Cell Distribution Width 16.4 % (11.5-14.5)
[2018-10-24 10:23] LABS: ALT/SGPT 15 U/l (0-40); Albumin 3.5 gm/dL (3.2-5.2); Albumin/Globulin Ratio 1.5 (1.0-2.3); Alkaline Phosphatase 82 U/L (39-117); Bilirubin,Direct < 0.2 mg/dL (0.0-0.3); Blood Urea Nitrogen 10 mg/dl (6-20); Gamma Glutamyl Transpeptidase 21 U/L (5-36)
--- NOTE | 2018-10-24 14:24 | Discharge Summary ---
Providers - Providers Patient information: Note initiated : 10/24/18 at 2:22 pm Service Date, if different from initiated Date: [] Patient: Dayanna Stephens 57 y/o F admitted on 10/21/18 for abd pain, bloating, vomiting. Chief Complaint: [] Date of admission: 10/21/18 Discharge date: 10/24/18 Attending physician: Bertha Currie Hospitalization Hospital course: 57-year-old female with history of intestinal pseudoobstruction and recurrent fecal impaction. The patient presents with greater than a 24-hour history of no output through her stoma. She had increasing abdominal distention with nausea and vomiting. She was seen in the emergency room where she was noted to have dilated stomach and small bowel with large volume of stool in her right colon and proximal transverse colon and decompressed left colon. Patient has had many episodes in the past. She was admitted started on nasogastric suction. She was started on Mestinon 60 mg 3 times daily and she had a prompt response with early output of gas and some stool through her stoma. Over the past 2 days she has had major output through her stoma in her abdomen exam is benign. She is tolerating a diet and is stable for discharge home. Discharge diagnosis: chronic intestinal pseudoobstruction Secondary discharge diagnosis: FECAL impaction Myasthenia gravis Polyglandular autoimmune syndrome Hypothyroidism Reason for admission: small bowel obstruction with fecal impaction Procedures: None Pertinent studies/significant findings: None Complications: None Exam Temp Pulse Resp BP Pulse Ox 99.5 F H 71 18 152/86 93 10/24/18 12:00 10/24/18 03:54 10/24/18 12:00 10/24/18 12:00 10/24/18 12:00 - General physical appearance well developed, well nourished, no distress, obese - Eyes PERRL, normal ocular movement - ENT normal pinna, normal nares, normal mucosa, no hearing loss, no congestion - Head Head exam IM: Present: atraumatic, normal inspection, normocephalic - Neck no masses, no bruits, trachea midline, no lymphadenopathy, no venous distension - Cardiovascular Cardiovascular exam IM: Present: normal rate and rhythm, +S1, +S2, tachycardia. Absent: irregular rhythm, JVD, systolic murmur - Respiratory normal expansion, normal respiratory effort, clear to auscultation - Abdomen Abdomen: Present: soft ( ), non tender, bowel sounds, surgical scars (functioning stoma left lower quadrant) Hernia: Present: none - Genitourinary Present: normal external genitalia - Integumentary Present: no rash, no growths, no abnormal pigmentation - Neurologic Present: normal coordination, normal sensation - Musculoskeletal Present: normal gait, normal posture - Psychiatric Present: oriented to time, oriented to person, oriented to place, speech is normal, memory intact Discharge Plan - Patient/Caregiver Discharge Instructions Activity: increase activity as tolerated Diet: Regular Diet Prescriptions: Pyridostigmine [Mestinon] 60 mg PO TID #90 tablet - Follow up Plan Follow up with: Bertha Currie MD [Physician] - 11/03/18 9:15 am Douglas Haque MD [Primary Care Provider] - Disposition: Home, Self-Care Prognosis: Good Rehab Potential: Good I certify that the patient requires SNF services.: No Overall status at discharge: patient is back to baseline Pending Studies Resuscitation Status Full Code Diet Regular Diet Start SatOct 23 1715 Calcitriol (Rocaltrol) 0.25 mcg PO TID [facility] Admin: 10/24/18 09:46 Dose: 0.25 mcg Documented by: Admin: 10/23/18 21:00 Dose: 0.25 mcg Documented by: Admin: 10/23/18 16:11 Dose: 0.25 mcg Documented by: AIMEE Calcium Carbonate/Glycine (Calcium Carbonate) 1,250 mg PO BID [facility] Last Admin: 10/24/18 09:47 Dose: 1,250 mg Documented by: Admin: 10/23/18 21:00 Dose: 1,250 mg Documented by: Admin: 10/23/18 16:11 Dose: 1,250 mg Documented by: AIMEE Duloxetine HCl (Cymbalta) 30 mg PO BID [facility] Admin: 10/24/18 09:47 Dose: 30 mg Documented by: Admin: 10/23/18 20:43 Dose: 30 mg Documented by: Admin: 10/23/18 08:54 Dose: 30 mg Documented by: Admin: 10/22/18 21:33 Dose: 30 mg Documented by: Admin: 10/22/18 08:16 Dose: 30 mg Documented by: AIMEE Erythromycin (Erythromycin) 250 mg PO Q6H [facility] Last Admin: 10/24/18 13:11 Dose: 250 mg Documented by: Admin: 10/24/18 06:02 Dose: 250 mg Documented by: Admin: 10/24/18 00:45 Dose: 250 mg Documented by: Admin: 10/23/18 20:43 Dose: 250 mg Documented by: Admin: 10/23/18 16:11 Dose: 250 mg Documented by: AIMEE Hydromorphone HCl (Dilaudid) 0.5 mg IV Q2HP PRN PRN Reason: PAIN LEVEL > 6 Last Admin: 10/24/18 13:37 Dose: 0.5 mg Documented by: Admin: 10/24/18 09:46 Dose: 0.5 mg Documented by: Admin: 10/23/18 21:18 Dose: 0.5 mg Documented by: Admin: 10/23/18 17:27 Dose: 0.5 mg Documented by: Admin: 10/23/18 14:01 Dose: 0.5 mg Documented by: Admin: 10/23/18 11:24 Dose: 0.5 mg Documented by: Admin: 10/23/18 09:03 Dose: 0.5 mg Documented by: Admin: 10/23/18 06:47 Dose: 0.5 mg Documented by: Admin: 10/23/18 03:37 Dose: 0.5 mg Documented by: [email or web address] Admin: 10/22/18 21:32 Dose: 0.5 mg Documented by: Admin: 10/22/18 17:46 Dose: 0.5 mg Documented by: Admin: 10/22/18 15:06 Dose: 0.5 mg Documented by: Admin: 10/22/18 11:35 Dose: 0.5 mg Documented by: Admin: 10/22/18 08:35 Dose: 0.5 mg Documented by: Admin: 10/22/18 04:13 Dose: 0.5 mg Documented by: Admin: 10/22/18 00:34 Dose: 0.5 mg Documented by: BRITTNI [facility]) [facility] Admin: 10/24/18 07:35 Dose: 250 mcg Documented by: Admin: 10/23/18 07:20 Dose: 250 mcg Documented by: Admin: 10/22/18 08:16 Dose: 250 mcg Documented by: AIMEE Lisinopril (Zestril) 20 mg PO BID [facility] Last Admin: 10/24/18 09:47 Dose: 20 mg Documented by: Admin: 10/23/18 20:43 Dose: 20 mg Documented by: KENYETTA Magnesium Oxide (Magnesium Oxide) 400 mg PO TID [facility] Last Admin: 10/24/18 09:47 Dose: 400 mg Documented by: Admin: 10/23/18 20:44 Dose: 400 mg Documented by: Admin: 10/23/18 16:11 Dose: 400 mg Documented by: Admin: 10/23/18 08:54 Dose: 400 mg Documented by: Admin: 10/22/18 21:33 Dose: 400 mg Documented by: Admin: 10/22/18 15:06 Dose: 400 mg Documented by: Admin: 10/22/18 08:16 Dose: 400 mg Documented by: AIMEE Metformin HCl (Glucophage) 500 mg PO [facility] Last Admin: 10/24/18 07:35 Dose: 500 mg Documented by: Admin: 10/23/18 07:20 Dose: 500 mg Documented by: Admin: 10/22/18 08:16 Dose: 500 mg Documented by: AIMEE Ondansetron HCl (Zofran) 4 mg IV Q4HP PRN PRN Reason: Nausea And Vomiting Last Admin: 10/22/18 04:13 Dose: 4 mg Documented by: KARLOS Oxycodone/Acetaminophen (Percocet 10-325mg) 1 tab PO Q4HP PRN PRN Reason: PAIN LEVEL 3-6 Last Admin: 10/24/18 12:20 Dose: 1 tab Documented by: Admin: 10/24/18 07:30 Dose: 1 tab Documented by: Admin: 10/24/18 03:51 Dose: 1 tab Documented by: Admin: 10/23/18 23:27 Dose: 1 tab Documented by: Admin: 10/23/18 19:29 Dose: 1 tab Documented by: KENYETTA Polyethylene Glycol (Miralax) 17 gm PO Q8H [facility] Last Admin: 10/24/18 12:20 Dose: 17 gm Documented by: Admin: 10/24/18 03:51 Dose: 17 gm Documented by: Admin: 10/23/18 21:01 Dose: 17 gm Documented by: Admin: 10/23/18 11:55 Dose: 17 gm Documented by: AIMEE Prednisone (Prednisone) 20 mg PO [facility] Last Admin: 10/24/18 07:35 Dose: 20 mg Documented by: Admin: 10/23/18 07:20 Dose: 20 mg Documented by: Admin: 10/22/18 08:16 Dose: 20 mg Documented by: AIMEE Pyridostigmine Cushing (Mestinon) 60 mg PO TID [facility] Admin: 10/24/18 09:46 Dose: 60 mg Documented by: Admin: 10/23/18 20:43 Dose: 60 mg Documented by: Admin: 10/23/18 16:12 Dose: 60 mg Documented by: Admin: 10/23/18 08:54 Dose: 60 mg Documented by: Admin: 10/22/18 21:48 Dose: 60 mg Documented by: Admin: 10/22/18 15:06 Dose: 60 mg Documented by: Admin: 10/22/18 09:40 Dose: 60 mg Documented by: AIMEE Shift Summary 10/24/18 03:35 Shift Summary by Jamila Jauregui&Castro, up ad rainer in room, walking hallways with FWW x1 this shift. VSS. Pain controlled with PO Percocet x4 and IV dilaudid x1 this shift; patient says she feels good; ostomy output 150mL thick brown output; Tolerating reg diet without nausea. Calcium low at 6.9 yesterday, home medications re-ordered to treat. Bedscale not working properly per pt so wgts are per standing scale for last night and night before; output from pigtail drain 20mL serous fluid. Scheduled miralax and erythromycin around the clock to assist with bowel motility. Plan to D/C home today. Initialized on 10/24/18 03:35 - END OF NOTE
[2018-10-24] MEDS ORDERED: HEPARIN SODIUM,PORCINE/PF 500 UNIT/5 ML SYRINGE IV ONE (16:00)
== END 2018-10-24 16:10 | disposition home or self-care (01) | DRG 392 ==
LOC: ED 16:38 → MEDSUR 23:55
PROVIDERS: ADMIT Family Medicine Adult Medicine; ATTEND Family Medicine Adult Medicine

== ENCOUNTER 2018-11-26 03:58 | Inpatient (IN) ==
[2018-11-26] MEDS ORDERED: IOPAMIDOL 100 ML BOTTLE IV ONE (03:59)
[2018-11-26] MEDS ORDERED: 0.9 % SODIUM CHLORIDE 1,000 ML IV ONE (04:14)
[2018-11-26] MEDS ORDERED: PROMETHAZINE 25 MG/ML VIAL IV ONE (04:14)
[2018-11-26] MEDS: HYDROmorphone 2 MG/ML VIAL IV PRN ×4 (04:25→16:25)
[2018-11-26 05:43] LABS: Basophils # (Auto) 0 K/mcL (0.0-0.3); Basophils % (Auto) 0.2 % (0.0-2.0); Eosinophils # (Auto) 0.2 K/mcL (0.0-0.7); Eosinophils % (Auto) 1.3 % (0.0-7.0); Granulocytes % (Auto) 78.4 % (38.0-78.0); Lymphocytes # (Auto) 2.1 K/mcL (1.5-4.8); Lymphocytes % (Auto) 13.3 % (15.5-49.0); Mean Cell Volume 78.2 fL (80.0-100.0); Mean Corpuscular HGB Conc 30.7 g/dL (31.0-36.0); Monocytes # (Auto) 1.1 K/mcL (0.1-0.9); Monocytes % (Auto) 6.8 % (1.0-12.0); Platelet Count 330 K/mcL (140-440); RBC 4.58 M/mcL (4.00-5.20); Red Cell Distribution Width 17.2 % (11.5-14.5)
--- NOTE | 2018-11-26 06:10 | Cat Scan Report ---
CLINICAL INFORMATION: History of recurrent mechanical small bowel obstruction. Abdominal pain and distention. COMPARISON: Multiple plain film examinations and CT scans. Comparison made with most recent previous CT scans dated 10/21/2018, 10/08/2018, 09/10/2018, 08/09/2018. TECHNIQUE: Axial images were obtained through the abdomen and pelvis. Sagittally and coronally reformatted images. 80 mL contrast material injected intravenously. Oral contrast material was not given FINDINGS: Patient has undergone multiple previous abdominal surgeries. There is a left lower quadrant colostomy, unchanged. There is dilated gas and fluid-filled small bowel. This is predominantly jejunal and left-sided. Cross-sectional diameter of the jejunum measures approximately 4 to 5 cm. There appears to be a transition point in the left side of the abdomen consistent with mechanical small bowel obstruction. There is no closed loop obstruction. Findings are consistent with mechanical obstruction secondary to postsurgical adhesions. Overall appearance is very similar to previous examination. There is no pneumatosis. No biliary or portal venous gas. There is no pneumoperitoneum. No significant free intraperitoneal fluid. No intra-abdominal abscess. There is fecal material within the colon. 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 There is a fluid collection in the anterior abdominal wall. This is left-sided and pelvic. This fluid collection has been previously drained. There is no longer a catheter present. This fluid collection has increased slightly since 10/21/2018. This currently measures approximately 15 cm in mediolateral dimension, 3 cm in AP dimension, and 8 cm in craniocaudal dimension. There are no gas bubbles within this. This may be an abscess or benign seroma. Lung bases are negative. No parenchymal infiltrate or mass. No pleural fluid. No pericardial fluid. There is a small hiatal hernia. Patient has undergone previous median sternotomy. There is negative. No focal intrahepatic mass. Liver contour is smooth. There are surgical clips in the gallbladder fossa. There is no hepatic abscess. Spleen is negative. No splenomegaly. Pancreas is atrophic. No pancreatic mass. No peripancreatic abnormality Adrenal glands are negative. No adrenal mass. Kidneys are negative. No solid or cystic mass. No hydronephrosis. Abdominal aorta is negative. No abdominal aortic aneurysm. No significant retroperitoneal or mesenteric adenopathy. No evidence for appendicitis. There is multilevel degenerative disc disease with marked disc narrowing at L4-5. Sacrum and pelvis are negative. Examination was initially interpreted by [facility] IMPRESSION: 1. Recurrent mechanical small bowel obstruction. Transition point is left-sided and consistent with adhesions. 2. Mildly increased size of left lower quadrant subcutaneous fluid collection. No gas bubbles are present. Findings are nonspecific. Seroma or abscess are possible The exam was performed using radiation dose optimization techniques including, but not limited to, automated exposure control, adjustment of the mA and/or kV according to patient size and use of iterative reconstruction technique. Interpreted and Authenticated by: All Cormier 11/26/18
[2018-11-26 06:12] LABS: ALT/SGPT 10 U/l (0-40); Albumin 3.3 gm/dL (3.2-5.2); Albumin/Globulin Ratio 1.1 (1.0-2.3); Alkaline Phosphatase 67 U/L (39-117); Blood Urea Nitrogen 24 mg/dl (6-20)
--- NOTE | 2018-11-26 07:11 | Emergency Department Note ---
Abdominal Pain HPI - General Chief Complaint: Abdominal Pain Stated Complaint: Bowel Obstruction Time Seen by Provider: 11/26/18 07:03 Mode of arrival: wheelchair - History of Present Illness HPI Narrative: This patient has had some abdominal discomfort for the last day or so and it is a small bowel obstruction on her CT scan. She does have a colostomy in the left lower quadrant. She had a small bowel obstruction 2 months ago. - Related Data Home Medications Medication Instructions Recorded Confirmed DULoxetine [Cymbalta] 30 mg PO BID 11/30/16 11/26/18 Levothyroxine [Synthroid] 250 mcg PO QAMAC 08/20/17 11/26/18 Acetaminophen W/Codeine #3 2 cap PO Q4-6HP PRN 09/18/17 11/26/18 [Tylenol #3] Naproxen (Pp) [Aleve 220Mg (Pp)] 2 tab PO BID PRN 09/18/17 11/26/18 Polyethylene Glycol 3350 [Miralax] 17 gm PO BID 09/18/17 11/26/18 calcitriol 0.25 mcg capsule 0.5 mcg PO TID cap 11/05/17 11/26/18 Previous Rx's Medication Instructions Recorded predniSONE [Prednisone] 20 mg PO QAMCC #4 tab 05/18/16 Lisinopril [Zestril] 20 mg PO BID #60 tab 12/06/17 Promethazine [Phenergan] 25 mg TN Q4HP PRN #30 supp.rect 01/08/18 Calcium Carbonate 1,250 mg PO BID #350 oral.susp 07/12/18 Magnesium Oxide 400 mg PO TID #90 tab 07/12/18 Erythromycin Base [Erythromycin] 250 mg PO Q6H #100 capsule.dr 08/18/18 metFORMIN HCL [Metformin HCl] 500 mg PO DAILY #30 tab 10/17/18 Erythromycin Base [Erythromycin] 250 mg PO Q6H cap 10/24/18 Pyridostigmine [Mestinon] 60 mg PO TID #90 tab 10/24/18 Allergies Allergy/AdvReac Type Severity Reaction Status Date / Time Sulfa (Sulfonamide Allergy Severe Anaphylaxis Verified 11/03/18 09:30 Antibiotics) adhesive tape AdvReac Mild Blister Verified 11/03/18 09:30 metoclopramide [From Reglan] AdvReac Mild Anxiety Verified 11/03/18 09:30 steri strips Allergy Severe Blister Uncoded 11/03/18 09:30 Review of Systems All systems ED: reviewed and negative except as stated. Abdominal Pain PMH - Past Medical History [facility] Narrative: Medical History (Last Reviewed 11/03/18 @ 09:32 by Jayla Hay CMA) Foot sprain (Acute) Anaphylaxis (Acute) Adverse reaction to drug (Acute) Severe sepsis (Acute) Pyelonephritis (Acute) Pneumonia (Acute) Myasthenia gravis (Acute) Polyglandular autoimmune syndrome (Chronic) Sarcoidosis (Acute) Achalasia and cardiospasm (Acute) Hypothyroidism (Acute) UTI (urinary tract infection) (Acute) Infiltrate of lung present on imaging of chest (Acute) Past Surgical History (Last Reviewed 11/03/18 @ 09:32 by Jayla Hay CMA) History of exploratory laparotomy (Acute) History of exploratory laparotomy (Acute) History of exploratory laparotomy (Acute) History of exploratory laparotomy (Acute) Family History (Last Reviewed 11/03/18 @ 09:33 by Jayla Hay CMA) Father CAD (coronary artery disease) Mother CAD (coronary artery disease) Grandfather CVA (cerebral vascular accident) Grandmother CVA (cerebral vascular accident) Medical history: Reports: COPD, hypertension, hypothyroidism, other Psychiatric history: Reports: anxiety, depression [employer] history: Reports: non-contributory Family history: Reports: other - Social History Smoking status: Never smoker Alcohol use: Reports: None Drug use: Reports: none Physical Exam Limitations: no limitations General appearance: alert Head: atraumatic Eye: Present: normal appearance ENT: normal exam Neck: Present: normal inspection Chest: Present: normal inspection Respiratory: Present: normal lung sounds bilaterally Cardiovascular: Present: regular rate, normal rhythm, tachycardia, normal heart sounds Abdominal: Present: soft, tenderness, hyperactive bowel sounds. Absent: distention Abdominal tenderness: Present: yvrose umbilical Neurological: Present: alert Psychiatric: Present: normal affect Skin: Present: warm, dry Course Vital Signs Temperature 97.7 F 11/26/18 03:59 Pulse Rate 139 H 11/26/18 03:59 Respiratory Rate 18 11/26/18 03:59 Blood Pressure 168/109 11/26/18 03:59 Pulse Oximetry (%) 96 11/26/18 03:59 Temperature 97.7 F 11/26/18 03:59 Pulse Rate 127 H 11/26/18 06:46 Respiratory Rate 18 11/26/18 03:59 Blood Pressure 118/94 11/26/18 06:46 Pulse Oximetry (%) 96 11/26/18 06:46 Abdominal Pain - MDM Narrative Medical decision making narrative: This patient has a mechanical small bowel obstruction thought to be secondary to adhesions. I have discussed the case with Dr. Currie and she will be admitted to the hospital. - Lab Data Lab results reviewed: Yes I reviewed the patient's lab results. Result diagrams: 11/26/18 05:00 11/26/18 05:00 Lab Results 11/26/18 11/26/18 Range/Units 05:00 05:00 WBC 15.9 H (4.5-11.0) K/mcL RBC 4.58 (4.00-5.20) M/mcL Hgb 11.0 L (12.0-15.0) g/dL Hct 35.9 L (36.0-48.0) % MCV 78.2 L (80.0-100.0) fL MCH 24.0 L (26.0-34.0) pg MCHC 30.7 L (31.0-36.0) g/dL RDW 17.2 H (11.5-14.5) % Plt Count 330 (140-440) K/mcL MPV 7.3 L (7.4-10.4) fL Gran % 78.4 H (38.0-78.0) % Lymph % (Auto) 13.3 L (15.5-49.0) % [place] % (Auto) 6.8 (1.0-12.0) % Eos % (Auto) 1.3 (0.0-7.0) % Baso % (Auto) 0.2 (0.0-2.0) % Gran # 12.5 H (1.8-8.0) K/mcL Lymph # (Auto) 2.1 (1.5-4.8) K/mcL [place] # (Auto) 1.1 H (0.1-0.9) K/mcL Eos # (Auto) 0.2 (0.0-0.7) K/mcL Baso # (Auto) 0 (0.0-0.3) K/mcL Sodium 135 (133-145) mmol/L Potassium 4.4 (3.3-5.1) mmol/L Chloride 97 (96-108) mmol/L Carbon Dioxide 26 (22-30) mmol/L Anion Gap 12.0 (8-16) BUN 24 H (6-20) mg/dl Creatinine 1.0 (0.6-1.1) mg/dl GFR Calculation 63 Glucose 169 H (70-105) mg/dL Calcium 8.6 (8.6-10.4) mg/dl Total Bilirubin 0.2 (0.0-1.0) mg/dL AST 10 (0-37) U/l ALT 10 (0-40) U/l Alkaline Phosphatase 67 (39-117) U/L Total Protein 6.4 (5.9-8.4) gm/dL Albumin 3.3 (3.2-5.2) gm/dL Globulin 3.1 (2.2-3.7) gm/dL Albumin/Globulin Ratio 1.1 (1.0-2.3) - Radiology Data Radiology results reviewed: Yes I reviewed the patient's radiology results. Disposition Pt seen by [employer] only: No Clinical Impression: Small bowel obstruction Disposition: Home, Self-Care Condition: Good Referrals: Douglas Haque MD [Primary Care Provider] - Time of Disposition: 07:12
[2018-11-26] MEDS ORDERED: ONDANSETRON 4 MG/2 ML VIAL IV PRN ×2 (07:13→10:13)
[2018-11-26] MEDS: MAGNESIUM HYDROXIDE 30 ML ORAL.SUSP PO SCH ×4 (10:50→23:59)
[2018-11-26] MEDS: 0.9 % SODIUM CHLORIDE 1,000 ML IV SCH ×2 (10:50→18:01)
[2018-11-26] MEDS: POLYETHYLENE GLYCOL 3350 17 GM PACKET PO SCH ×3 (11:36→19:24)
--- NOTE | 2018-11-26 13:20 | General Surg History&Physical ---
History of Present Illness Patient information: Note initiated : 11/26/18 at 1:16 pm Service Date, if different from initiated Date: [] Patient: Dayanna Stephens a 57 y/o F admitted on 11/26/18 for Bowel Obstruction. Chief Complaint: [abdominal distention with nausea] HPI: Ms. Stephens is a 57 year old F with history of chronic severe intestinal pseudoobstruction. She has a long history of chronic intestinal pseudoobstruction and has had multiple hospitalizations due to exacerbation. She was last admitted about a month ago and was started on Mestinon 60 mg 3 times daily. She states that she has been doing well except over the past 3 days she has had increased abdominal pressure with swelling. She has not had pain. She has nausea but no vomiting. She noticed that she was having increased gaseous distention but no output of stool. She also states that she is noted that she was having increased muscle cramps and twitches related to the Mestinon. She states that she's continued to take the Mestinon but it keeps her awake. A CT of the abdomen done today shows dilated loops of small bowel and colon. She has large volume fecal impaction of right and transverse colon. She does not have a true obstructive pattern. Review of Systems - Constitutional fatigue, weakness, weight loss - EENT Nose, mouth and throat: no headache(s) - Cardiovascular no chest pain with activity, no diaphoresis, no dyspnea on exertion, no rapid heart rate - Respiratory no cough, no dyspnea on exertion, no wheezing - Gastrointestinal abdominal pain, bloating, change in bowel habits, constipation, cramping, loose stools, nausea, vomiting - Genitourinary Genitourinary: no change in urinary stream, no difficulty urinating, no nocturia, no urinary frequency, no urinary incontinence - Musculoskeletal arthralgias, muscle cramps, myalgias - Integumentary no new lesions, no pruritus, no rash - Neurological dizziness, headache(s), paresthesias, restless legs, no confusion, no tremor(s), no weakness - Psychiatric anxiety, depression, irritability - Endocrine fatigue, no palpitations - Hematologic/Lymphatic no easy bleeding, no easy bruising, no lymphadenopathy - Allergic/Immunologic no tongue swelling, no throat swelling, no uticaria, no wheezing, no lip swelling Past History Past medical history: Chronic intestinal pseudoobstruction History of myasthenia gravis History of polyglandular autoimmune syndrome History of sarcoidosis Hypothyroidism Past surgical history: Exploratory laparotomy with adhesiolysis 4 Sigmoid colon resection with colostomy Incisional hernia repair with mesh Past family history: Coronary artery disease History of stroke Past social history: Disabled Never smoker No drug use Medications and Allergies Home Medications Medication Instructions Recorded Confirmed Type predniSONE [Prednisone] 20 mg PO QAMCC #4 tab 05/18/16 11/26/18 Rx DULoxetine [Cymbalta] 30 mg PO BID 11/30/16 11/26/18 History Levothyroxine [Synthroid] 250 mcg PO QAMAC 08/20/17 11/26/18 History Acetaminophen W/Codeine #3 2 cap PO Q4-6HP PRN 09/18/17 11/26/18 History [Tylenol #3] Naproxen (Pp) [Aleve 220Mg (Pp)] 2 tab PO BID PRN 09/18/17 11/26/18 History Polyethylene Glycol 3350 [Miralax] 17 gm PO BID 09/18/17 11/26/18 History calcitriol 0.25 mcg capsule 0.5 mcg PO TID cap 11/05/17 11/26/18 History Lisinopril [Zestril] 20 mg PO BID #60 tab 12/06/17 11/26/18 Rx Promethazine [Phenergan] 25 mg [place] Q4HP PRN #30 supp.rect 01/08/18 11/26/18 Rx Calcium Carbonate 1,250 mg PO BID #350 oral.susp 07/12/18 11/26/18 Rx Magnesium Oxide 400 mg PO TID #90 tab 07/12/18 11/26/18 Rx Erythromycin Base [Erythromycin] 250 mg PO Q6H #100 capsule.dr 08/18/18 11/26/18 Rx metFORMIN HCL [Metformin HCl] 500 mg PO DAILY #30 tab 10/17/18 11/26/18 Rx Erythromycin Base [Erythromycin] 250 mg PO Q6H cap 10/24/18 11/26/18 Rx Pyridostigmine [Mestinon] 60 mg PO TID #90 tab 10/24/18 11/26/18 Rx Allergies Allergy/AdvReac Type Severity Reaction Status Date / Time Sulfa (Sulfonamide Allergy Severe Anaphylaxis Verified 11/03/18 09:30 Antibiotics) adhesive tape AdvReac Mild Blister Verified 11/03/18 09:30 metoclopramide [From Reglan] AdvReac Mild Anxiety Verified 11/03/18 09:30 steri strips Allergy Severe Blister Uncoded 11/03/18 09:30 Exam Temp Pulse Resp BP Pulse Ox 98.7 F 120 H 16 106/66 94 11/26/18 11:43 11/26/18 11:43 11/26/18 11:43 11/26/18 11:43 11/26/18 11:43 - General physical appearance well developed, well nourished, no distress, chronically ill, obese - Eyes PERRL, normal ocular movement - ENT normal pinna, normal nares, normal mucosa, no hearing loss, no congestion - Head Head exam IM: Present: atraumatic, normocephalic - Neck no masses, no bruits, trachea midline, no lymphadenopathy, no venous distension - Cardiovascular Cardiovascular exam IM: Present: normal rate and rhythm, RRR, +S1, +S2. Absent: irregular rhythm, JVD, systolic murmur, tachycardia - Respiratory normal expansion, normal respiratory effort, clear to auscultation - Abdomen Abdomen: Present: soft, non tender, bowel sounds (good active bowel sounds), distended ( distention of upper abdomen with tympany) Hernia: Present: none - Genitourinary Present: normal external genitalia - Integumentary Present: no rash, no growths, no abnormal pigmentation - Neurologic Present: normal coordination, normal sensation, other ( muscle twitches and flexion spasms of feet and hands) - Musculoskeletal Present: normal gait, normal posture - Psychiatric Present: oriented to time, oriented to person, oriented to place, speech is normal, memory intact Assessment and Plan (1) Chronic intestinal pseudo-obstruction IV fluids Clear liquids X-rays of abdomen in the morning Status: Acute (2) Adverse reaction to drug Reduce Mestinon to 60 mg twice daily Flexeril 10 mg 3 times daily Status: Acute Qualifiers: Encounter type: initial encounter (3) Fecal impaction Status: Acute (4) Myasthenia gravis Status: Acute (5) Primary chronic pseudo-obstruction of large intestine Status: Acute
[2018-11-26] MEDS ORDERED: HYDROmorphone 2 MG/ML VIAL ONE (14:16)
[2018-11-26] MEDS: ERYTHROMYCIN BASE 250 MG TABLET PO SCH ×3 (14:23→23:59)
[2018-11-26] MEDS ORDERED: PYRIDOSTIGMINE 60 MG TABLET PO SCH (15:00)
[2018-11-26] MEDS: MAGNESIUM OXIDE 400 MG TABLET PO SCH ×2 (16:25→22:05)
[2018-11-26] MEDS: PROMETHAZINE 25 MG/ML VIAL IV PRN (16:25)
[2018-11-26] MEDS: CYCLOBENZAPRINE 10 MG TABLET PO PRN (16:25)
[2018-11-26] MEDS: PANTOPRAZOLE 40 MG VIAL IV SCH (18:01)
[2018-11-26] MEDS: PYRIDOSTIGMINE 60 MG TABLET PO SCH (22:05)
[2018-11-26] MEDS: DULoxetine 30 MG CAPSULE PO SCH (22:05)
[2018-11-26] MEDS: LISINOPRIL 20 MG TABLET PO SCH (22:05)
[2018-11-27] MEDS: 0.9 % SODIUM CHLORIDE 1,000 ML IV SCH ×2 (00:10→06:57)
[2018-11-27] MEDS: HYDROmorphone 2 MG/ML VIAL IV PRN ×5 (03:30→15:53)
[2018-11-27] MEDS: PROMETHAZINE 25 MG/ML VIAL IV PRN (03:30)
[2018-11-27] MEDS: POLYETHYLENE GLYCOL 3350 17 GM PACKET PO SCH ×5 (03:30→17:06)
[2018-11-27] MEDS: ERYTHROMYCIN BASE 250 MG TABLET PO SCH ×2 (06:02→12:34)
[2018-11-27] MEDS: PANTOPRAZOLE 40 MG VIAL IV SCH (07:27)
[2018-11-27] MEDS ORDERED: LEVOTHYROXINE 125 MCG TABLET PO SCH (07:30)
[2018-11-27] MEDS ORDERED: predniSONE 20 MG TABLET PO SCH (08:00)
--- NOTE | 2018-11-27 08:27 | XRay Report ---
CLINICAL INFORMATION: Recurrent small bowel obstruction TECHNIQUE: Supine and upright abdomen COMPARISON: Previous CT scan dated 11/26/2018. Multiple prior CT scans. Most recent plain film examinations dated 10/24/2018 and 10/23/2018 FINDINGS: Persistent dilated gas-filled small bowel in the left side of the abdomen. Its measures approximately 6 cm in cross-sectional diameter. There air-fluid levels. No pneumoperitoneum. No biliary or portal venous gas. No pneumatosis. There is a small amount of colonic gas in the ascending colon and scattered bubbles in the descending colon. Amount of small bowel gas is slightly decreased as compared with the digital staff design engineer radiograph from CT scan dated 11/26/2018 IMPRESSION: 1. Slightly decreased small bowel gas since 11/26/2018 2. Bowel gas pattern remains abnormal with dilated gas-filled small bowel. Small amount of colonic gas as above Interpreted and Authenticated by: All Cormier 11/27/18
[2018-11-27] MEDS: LISINOPRIL 20 MG TABLET PO SCH (09:15)
[2018-11-27] MEDS: MAGNESIUM OXIDE 400 MG TABLET PO SCH ×2 (09:15→15:53)
[2018-11-27] MEDS: DULoxetine 30 MG CAPSULE PO SCH (09:15)
[2018-11-27] MEDS: PYRIDOSTIGMINE 60 MG TABLET PO SCH (09:31)
[2018-11-27] MEDS: CYCLOBENZAPRINE 10 MG TABLET PO PRN (15:53)
--- NOTE | 2018-11-27 16:03 | Discharge Summary ---
Providers - Providers Patient information: Note initiated : 11/27/18 at 4:00 pm Service Date, if different from initiated Date: [] Patient: Dayanna Stephens 57 y/o F admitted on 11/26/18 for Bowel Obstruction. Chief Complaint: [] Date of admission: 11/26/18 Discharge date: 11/27/18 Attending physician: Bertha Currie Hospitalization Hospital course: 57-year-old female with chronic intestinal pseudoobstruction who presents with 36 hour history of decreased output through her stoma with crampy abdominal pain and distention. Abdominal exam was compatible with the intestinal distention and this was confirmed by CT. The patient gave a history of having some muscle twitches and cramps associated with the Mestinon therapy and she had cut back on this treatment. She also cut back on her MiraLAX to once or twice daily. It was elected to keep her on Mestinon twice daily and she was given Flexeril for muscle cramping. This was effective. She was given more doses of MiraLAX and milk of magnesia. Overnight she spit out over 2000 cc of measured fecal matter and feels much better. Follow-up x-rays shows decrease in colon gas in small bowel gas. Patient is felt to be stable and she was discharged home to continue on this regimen Discharge diagnosis: chronic recurrent colonic pseudoobstruction Secondary discharge diagnosis: History of myasthenia gravis Hypothyroidism Reason for admission: recurrent abdominal pain nausea and abdominal distention Procedures: None Pertinent studies/significant findings: CT of abdomen and pelvis with contrast Complications: None Exam Temp Pulse Resp BP Pulse Ox 97.9 F 106 H 16 110/62 91 11/27/18 12:00 11/27/18 12:00 11/27/18 12:11/27/18 12:11/27/18 12:00 - General physical appearance well developed, well nourished, moderate distress, moderate pain, chronically ill, obese - Eyes PERRL, normal ocular movement - ENT normal pinna, normal nares, normal mucosa, no hearing loss, no congestion - Head Head exam IM: Present: atraumatic, normocephalic - Neck no masses, no bruits, trachea midline, no lymphadenopathy, no venous distension - Cardiovascular Cardiovascular exam IM: Present: normal rate and rhythm - Respiratory normal expansion, normal respiratory effort, clear to auscultation - Abdomen Abdomen: Present: soft, tender (bowel midabdominal tenderness), bowel sounds ( hyperactive bowel sounds throughout), distended ( significant decrease in abdominal distention; stoma is functioning appropriately) Hernia: Present: none - Genitourinary Present: normal external genitalia - Integumentary Present: no rash, no growths, no abnormal pigmentation - Neurologic Present: normal coordination, normal sensation - Musculoskeletal Present: normal gait, normal posture - Psychiatric Present: oriented to time, oriented to person, oriented to place, speech is normal, memory intact Discharge Plan - Patient/Caregiver Discharge Instructions Activity: increase activity as tolerated, resume usual activities as tolerated Diet: Regular Diet Additional Instructions: MiraLAX 17 g in 8 ounces of liquid at least 2-3 times daily Milk of magnesia 30 cc 2-3 times daily as needed for constipation Mestinon 60 mg twice daily Flexeril 10 mg 3 times daily Prescriptions: Cyclobenzaprine [Flexeril] 10 mg PO TIDP PRN #90 tablet PRN Reason: Muscle Spasm - Follow up Plan Follow up with: Douglas Haque MD [Primary Care Provider] - Disposition: Home, Self-Care Prognosis: Good Rehab Potential: Good Overall status at discharge: patient is progressing back to baseline Pending Studies Resuscitation Status Full Code Diet Regular Diet Start Unique Nov 27 1122 Cyclobenzaprine HCl (Flexeril) 10 mg PO TIDP PRN PRN Reason: Muscle Spasm Last Admin: 11/27/18 15:53 Dose: 10 mg Documented by: Admin: 11/26/18 16:25 Dose: 10 mg Documented by: AIMEE Duloxetine HCl (Cymbalta) 30 mg PO BID [facility] Last Admin: 11/27/18 09:15 Dose: 30 mg Documented by: Admin: 11/26/18 22:05 Dose: 30 mg Documented by: ETHAN Erythromycin (Erythromycin) 250 mg PO Q6H [facility] Last Admin: 11/27/18 12:34 Dose: 250 mg Documented by: Admin: 11/27/18 06:02 Dose: 250 mg Documented by: Admin: 11/26/18 23:59 Dose: 250 mg Documented by: Admin: 11/26/18 19:41 Dose: 250 mg Documented by: Admin: 11/26/18 14:23 Dose: 250 mg Documented by: AIMEE Hydromorphone HCl (Dilaudid) 0.5 mg IV Q1HP PRN PRN Reason: PAIN LEVEL > 6 Last Admin: 11/27/18 15:53 Dose: 0.5 mg Documented by: Admin: 11/27/18 12:34 Dose: 0.5 mg Documented by: Admin: 11/27/18 07:47 Dose: 0.5 mg Documented by: Admin: 11/27/18 03:30 Dose: 0.5 mg Documented by: Admin: 11/27/18 00:00 Dose: 0.5 mg Documented by: Admin: 11/26/18 16:25 Dose: 0.5 mg Documented by: AIMEE Levothyroxine Sodium (Synthroid) 250 mcg PO [facility] Last Admin: 11/27/18 07:26 Dose: 250 mcg Documented by: AIMEE Lisinopril (Zestril) 20 mg PO BID [facility] Last Admin: 11/27/18 09:15 Dose: 20 mg Documented by: Admin: 11/26/18 22:05 Dose: 20 mg Documented by: ETHAN Magnesium Oxide (Magnesium Oxide) 400 mg PO TID [facility] Last Admin: 11/27/18 15:53 Dose: 400 mg Documented by: Admin: 11/27/18 09:15 Dose: 400 mg Documented by: Admin: 11/26/18 22:05 Dose: 400 mg Documented by: Admin: 11/26/18 16:25 Dose: 400 mg Documented by: AIMEE Ondansetron HCl (Zofran) 4 mg IV Q4HP PRN PRN Reason: Nausea And Vomiting Last Admin: 11/26/18 10:17 Dose: 4 mg Documented by: AIMEE Pantoprazole Sodium (Protonix) 40 mg IV BIDAC [facility] Last Admin: 11/27/18 07:27 Dose: 40 mg Documented by: Admin: 11/26/18 18:01 Dose: 40 mg Documented by: AIMEE Prednisone (Prednisone) 20 mg PO [facility] Last Admin: 11/27/18 07:51 Dose: 20 mg Documented by: AIMEE Promethazine HCl (Phenergan) 12.5 mg IV Q4HP PRN PRN Reason: Nausea And Vomiting Last Admin: 11/27/18 03:30 Dose: 12.5 mg Documented by: Admin: 11/26/18 16:25 Dose: 12 mg Documented by: AIMEE Pyridostigmine [place] (Mestinon) 60 mg PO BID [facility] Last Admin: 11/27/18 09:31 Dose: 60 mg Documented by: Admin: 11/26/18 22:05 Dose: 60 mg Documented by: ETHAN Shift Summary 11/27/18 05:14 Shift Summary by Gus Borden PT has rested fairly well. Vs- WNL on 2L O2 via N/C. POC LT chest accessed w/ NS infusing @ 150ml/hr. No skin issues. Up AMB to & from BR (I) - gait stable W/O device - voiding LG amts per hat. She provided own ostomy care - had SM soft stool out x1. ABD pain well controlled - IV Dilaudid 0.5mg given x2 doses - last @ 0330. Nausea on & off - Phenergan 12.5mg given x1 @ 0330. She is A&O x4, calm, pleasant, & cooperative. Pt is optomistic that she will D/C later today. Initialized on 11/27/18 05:14 - END OF NOTE
[2018-11-27] MEDS ORDERED: HEPARIN SODIUM,PORCINE/PF 500 UNIT/5 ML SYRINGE IV ONE (17:05)
[2018-11-27] MEDS ORDERED: MUPIROCIN OINT 2% 22GM TOPICAL SCH (21:00)
== END 2018-11-27 17:25 | disposition home or self-care (01) ==
LOC: ED 03:58 → MEDSUR 07:30
PROVIDERS: ADMIT Family Medicine Adult Medicine; ATTEND Family Medicine Adult Medicine

== ENCOUNTER 2018-11-28 04:16 | Inpatient (IN) ==
[2018-11-28] MEDS ORDERED: PROMETHAZINE 25 MG/ML VIAL IV ONE ×3 (04:20→06:36)
[2018-11-28] MEDS ORDERED: 0.9 % SODIUM CHLORIDE 1,000 ML IV ONE ×2 (04:20→06:36)
--- NOTE | 2018-11-28 04:27 | Emergency Department Note ---
Abdominal Pain HPI - General Chief Complaint: Abdominal Pain Stated Complaint: abdominal pain Time Seen by Provider: 11/28/18 04:20 Source: patient Mode of arrival: wheelchair Limitations: no limitations - History of Present Illness HPI Narrative: 57-year-old female who was released from the hospital less than 12 hours ago after being admitted for an intestinal pseudoobstruction comes back with severe belly pain nausea vomiting. She has had multiple bowel obstructions in the past and is on Mestinon for myasthenia gravis. She states that Zofran does not work well for her but instead Phenergan helps. She has an elevated temperature now 100.1 and is having liquid stool in her ostomy bag - Related Data Home Medications Medication Instructions Recorded Confirmed DULoxetine [Cymbalta] 30 mg PO BID 11/30/16 11/26/18 Levothyroxine [Synthroid] 250 mcg PO QAMAC 08/20/17 11/26/18 Acetaminophen W/Codeine #3 2 cap PO Q4-6HP PRN 09/18/17 11/26/18 [Tylenol #3] Naproxen (Pp) [Aleve 220Mg (Pp)] 2 tab PO BID PRN 09/18/17 11/26/18 Polyethylene Glycol 3350 [Miralax] 17 gm PO BID 09/18/17 11/26/18 calcitriol 0.25 mcg capsule 0.5 mcg PO TID cap 11/05/17 11/26/18 Previous Rx's Medication Instructions Recorded predniSONE [Prednisone] 20 mg PO QAMCC #4 tab 05/18/16 Lisinopril [Zestril] 20 mg PO BID #60 tab 12/06/17 Promethazine [Phenergan] 25 mg [place] Q4HP PRN #30 supp.rect 01/08/18 Calcium Carbonate 1,250 mg PO BID #350 oral.susp 07/12/18 Magnesium Oxide 400 mg PO TID #90 tab 07/12/18 Erythromycin Base [Erythromycin] 250 mg PO Q6H #100 capsule. 08/18/18 metFORMIN HCL [Metformin HCl] 500 mg PO DAILY #30 tab 10/17/18 Erythromycin Base [Erythromycin] 250 mg PO Q6H cap 10/24/18 Pyridostigmine [Mestinon] 60 mg PO TID #90 tab 10/24/18 Cyclobenzaprine [Flexeril] 10 mg PO TIDP PRN #90 tab 11/27/18 Mupirocin Oint 2% [Bactroban Oint 1 dose TOPICAL BID #0 tube 11/27/18 2%] Pyridostigmine [Mestinon] 60 mg PO BID tab 11/27/18 Allergies Allergy/AdvReac Type Severity Reaction Status Date / Time Sulfa (Sulfonamide Allergy Severe Anaphylaxis Verified 11/03/18 09:30 Antibiotics) adhesive tape AdvReac Mild Blister Verified 11/03/18 09:30 metoclopramide [From Reglan] AdvReac Mild Anxiety Verified 11/03/18 09:30 steri strips Allergy Severe Blister Uncoded 11/03/18 09:30 Review of Systems All systems ED: reviewed and negative except as stated. Abdominal Pain PMH - Past Medical History Attestation: Yes: The following information was validated with the patient. [facility] Narrative: Medical History (Last Reviewed 11/03/18 @ 09:32 by Jayla Hay CMA) Foot sprain (Acute) Anaphylaxis (Acute) Adverse reaction to drug (Acute) Severe sepsis (Acute) Pyelonephritis (Acute) Pneumonia (Acute) Myasthenia gravis (Acute) Polyglandular autoimmune syndrome (Chronic) Sarcoidosis (Acute) Achalasia and cardiospasm (Acute) Hypothyroidism (Acute) UTI (urinary tract infection) (Acute) Infiltrate of lung present on imaging of chest (Acute) Past Surgical History (Last Reviewed 11/03/18 @ 09:32 by Jayla Hay CMA) History of exploratory laparotomy (Acute) History of exploratory laparotomy (Acute) History of exploratory laparotomy (Acute) History of exploratory laparotomy (Acute) Family History (Last Reviewed 11/03/18 @ 09:33 by Jayla Hay CMA) Father CAD (coronary artery disease) Mother CAD (coronary artery disease) Grandfather CVA (cerebral vascular accident) Grandmother CVA (cerebral vascular accident) Medical history: Reports: COPD, hypertension, hypothyroidism, other (Myasthenia gravis) Psychiatric history: Reports: anxiety, depression 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 Normocephalic atraumatic. Conjunctive are clear sclerae nonicteric. No nasal discharge or congestion. Oropharynx pink moist. Neck is supple without lymphadenopathy thyromegaly. Heart is regular rate and rhythm no murmur appreciated. Lungs are clear to auscultation bilaterally without wheezes rales rhonchi or respiratory distress. Abdomen is soft generally tender all over. She has an ostomy bag in the left lower quadrant. It is leaking a little bit from seal. No pedal edema. +2 radial pulse. Alert oriented Limitations: no limitations Course Vital Signs Temperature 100.1 F H 11/28/18 04:17 Pulse Rate 117 H 11/28/18 04:17 Respiratory Rate 18 11/28/18 04:17 Blood Pressure 143/83 11/28/18 04:17 Pulse Oximetry (%) 98 11/28/18 04:17 Temperature 100.1 F H 11/28/18 04:17 Pulse Rate 106 H 11/28/18 07:26 Respiratory Rate 17 11/28/18 06:47 Blood Pressure 181/110 11/28/18 07:01 Pulse Oximetry (%) 96 11/28/18 07:26 Abdominal Pain - Lab Data Result diagrams: 11/28/18 04:35 11/28/18 04:35 Lab Results 11/28/18 11/28/18 11/28/18 Range/Units 04:35 04:35 04:35 WBC 9.1 (4.5-11.0) K/mcL RBC 4.14 (4.00-5.20) M/mcL Hgb 10.1 L (12.0-15.0) g/dL Hct 32.1 L (36.0-48.0) % MCV 77.4 L (80.0-100.0) fL MCH 24.5 L (26.0-34.0) pg MCHC 31.6 (31.0-36.0) g/dL RDW 17.3 H (11.5-14.5) % Plt Count 381 (140-440) K/mcL MPV 7.5 (7.4-10.4) fL Gran % 65.6 (38.0-78.0) % Lymph % (Auto) 22.9 (15.5-49.0) % [place] % (Auto) 9.2 (1.0-12.0) % Eos % (Auto) 2.0 (0.0-7.0) % Baso % (Auto) 0.3 (0.0-2.0) % Gran # 6.0 (1.8-8.0) K/mcL Lymph # (Auto) 2.1 (1.5-4.8) K/mcL [place] # (Auto) 0.8 (0.1-0.9) K/mcL Eos # (Auto) 0.2 (0.0-0.7) K/mcL Baso # (Auto) 0 (0.0-0.3) K/mcL VBG Lactic Acid 2.8 H (0.5-2.0) mmol/L Sodium 139 (133-145) mmol/L Potassium 3.8 (3.3-5.1) mmol/L Chloride 97 (96-108) mmol/L Carbon Dioxide 32 H (22-30) mmol/L Anion Gap 10.0 (8-16) BUN 9 (6-20) mg/dl Creatinine 0.8 (0.6-1.1) mg/dl GFR Calculation 82 Glucose 204 H (70-105) mg/dL Calcium 8.1 L (8.6-10.4) mg/dl Total Bilirubin 0.2 (0.0-1.0) mg/dL AST 10 (0-37) U/l ALT 14 (0-40) U/l Alkaline Phosphatase 69 (39-117) U/L Total Protein 6.6 (5.9-8.4) gm/dL Albumin 3.5 (3.2-5.2) gm/dL Globulin 3.1 (2.2-3.7) gm/dL Albumin/Globulin Ratio 1.1 (1.0-2.3) Lipase 15 (7-60) U/L - Radiology Data Radiology results reviewed: Yes I reviewed the patient's radiology results. X-ray of the abdomen shows likely repeat small bowel obstruction Disposition Pt seen by AUTO RESEARCH ENGINEER/PA only: No Clinical Impression: Chronic intestinal pseudo-obstruction, Small bowel obstruction, partial Summary: After interview and exam I ordered x-rays labs pain medicine and Phenergan. IV fluids started X-ray and labs consistent with bowel obstruction. Phenergan is helping with nausea Discussed patient's situation with Dr. Parviz Currie, general surgeon. Patient was just discharged yesterday from the hospital, but x-ray shows dilatation of the stomach. Dr. Currie advised me to go ahead put her to observation status and he will write orders-he will take the patient Disposition: Xfer As Inpt ([facility]) Condition: Fair Referrals: Douglas Haque MD [Primary Care Provider] -
[2018-11-28] MEDS: HYDROmorphone 2 MG/ML VIAL IV PRN ×8 (05:00→23:07)
[2018-11-28 05:23] LABS: Basophils # (Auto) 0 K/mcL (0.0-0.3); Basophils % (Auto) 0.3 % (0.0-2.0); Eosinophils # (Auto) 0.2 K/mcL (0.0-0.7); Granulocytes % (Auto) 65.6 % (38.0-78.0); Lymphocytes # (Auto) 2.1 K/mcL (1.5-4.8); Lymphocytes % (Auto) 22.9 % (15.5-49.0); Mean Cell Volume 77.4 fL (80.0-100.0); Mean Corpuscular HGB Conc 31.6 g/dL (31.0-36.0); Monocytes # (Auto) 0.8 K/mcL (0.1-0.9); Monocytes % (Auto) 9.2 % (1.0-12.0); Platelet Count 381 K/mcL (140-440); RBC 4.14 M/mcL (4.00-5.20); Red Cell Distribution Width 17.3 % (11.5-14.5)
[2018-11-28 05:44] LABS: ALT/SGPT 14 U/l (0-40); Albumin 3.5 gm/dL (3.2-5.2); Albumin/Globulin Ratio 1.1 (1.0-2.3); Alkaline Phosphatase 69 U/L (39-117); Blood Urea Nitrogen 9 mg/dl (6-20); Lipase 15 U/L (7-60)
--- NOTE | 2018-11-28 05:48 | XRay Report ---
CLINICAL INFORMATION: Recurrent small bowel obstruction TECHNIQUE: Supine and upright abdomen COMPARISON: Previous plain film examination dated 11/27/2018. Previous CT scan dated 11/26/2018. Patient has had multiple prior plain film and CT studies. FINDINGS: Gaseous distention of the stomach. There is markedly dilated gas-filled small bowel. Small bowel measures at least 5 cm in cross-sectional diameter. Bowel gas pattern is worse than on 11/27/2018 with increased gastric distention. Findings remain consistent with mechanical small bowel obstruction. No pneumoperitoneum. There is no biliary or portal venous gas. No pneumatosis. IMPRESSION: Increased gaseous distention since 11/27/2018. Recurrent mechanical small bowel obstruction Interpreted and Authenticated by: All Cormier 11/28/18
[2018-11-28] MEDS ORDERED: SIMETHICONE 80 MG TAB.CHEW CHEWED ONE (07:40)
[2018-11-28] MEDS ORDERED: hydrALAZINE 20 MG/ML VIAL IV ONE (08:37)
[2018-11-28] MEDS ORDERED: CYCLOBENZAPRINE 10 MG TABLET PO PRN (09:47)
[2018-11-28] MEDS ORDERED: PROMETHAZINE 25 MG SUPP.RECT PR PRN (09:47)
[2018-11-28] MEDS: 0.9 % SODIUM CHLORIDE 1,000 ML IV SCH ×3 (12:15→19:53)
[2018-11-28] MEDS: ERYTHROMYCIN BASE 250 MG TABLET PO SCH ×3 (12:59→21:35)
[2018-11-28] MEDS: POLYETHYLENE GLYCOL 3350 17 GM PACKET PO SCH ×3 (12:59→21:35)
[2018-11-28] MEDS: PROMETHAZINE 25 MG/ML VIAL IV PRN ×2 (15:50→19:45)
[2018-11-28] MEDS: MAGNESIUM OXIDE 400 MG TABLET PO SCH ×2 (15:52→21:34)
[2018-11-28] MEDS: PANTOPRAZOLE 40 MG VIAL IV SCH (17:28)
--- NOTE | 2018-11-28 18:03 | General Surg History&Physical ---
History of Present Illness Patient information: Note initiated : 11/28/18 at 6:03 pm Service Date, if different from initiated Date: [] Patient: Dayanna Stephens a 57 y/o F admitted on 11/28/18 for Abdominal Pain. Chief Complaint: [] HPI: Ms. Stephens is a 57 year old F history of intestinal pseudoobstruction and r ecurrent fecal impaction. She was admitted 18 through 10/24/18 with recurrent symptoms with abdominal distention nausea vomiting. She was treated with nasogastric suction, reinstitution of Mestinon therapy and had a prompt response with early output of gas and stool through her stoma. She continued to have major output through her stoma in her abdomen became benign. She was tolerating a regular diet and was discharged home on the however 2 days after getting home she had worsening symptoms. She was readmitted with similar symptoms with a massive dilation of her stomach and proximal small bowel. She does not have large fecal burden in her colon at this time. She will be admitted and treated nonoperatively as long as she responds. If she fails to respond she will have laparotomy with Parra's tube plication and adhesiolysis. Review of Systems - Constitutional chills, fatigue, malaise, weakness, weight loss - EENT Nose, mouth and throat: dry mouth, headache(s), neck pain - Cardiovascular no chest pain with activity, no dyspnea on exertion, no palpatations, no rapid heart rate, no syncope - Respiratory no dyspnea, no dyspnea on exertion, no wheezing - Gastrointestinal abdominal pain, bloating, cramping, diarrhea, early satiety, heartburn, nausea, vomiting - Genitourinary Genitourinary: no difficulty urinating, no dysuria, no nocturia - Musculoskeletal myalgias, no arthralgias - Integumentary no new lesions, no pruritus, no rash - Neurological dizziness, headache(s), weakness - Psychiatric anxiety, depression, irritability - Endocrine no fatigue, no palpitations - Hematologic/Lymphatic no easy bleeding, no easy bruising, no lymphadenopathy - Allergic/Immunologic no tongue swelling, no throat swelling, no wheezing, no lip swelling Past History Past medical history: Chronic intestinal pseudoobstruction Recurrent small bowel obstruction Polyglandular autoimmune syndrome History of sarcoidosis Hypothyroidism Past surgical history: Exploratory laparotomy with adhesiolysis 4 Sigmoid colon resection with volvulus with obstruction Incisional hernia repair with mesh Repair of parastomal hernia Past family history: Coronary artery disease History stroke Past social history: Disabled Never smoker Medications and Allergies Home Medications Medication Instructions Recorded Confirmed Type predniSONE [Prednisone] 20 mg PO QAMCC #4 tab 05/18/16 11/28/18 Rx DULoxetine [Cymbalta] 30 mg PO BID 11/30/16 11/28/18 History Levothyroxine [Synthroid] 250 mcg PO QAMAC 08/20/17 11/28/18 History Acetaminophen W/Codeine #3 2 cap PO Q4-6HP PRN 09/18/17 11/28/18 History [Tylenol #3] Naproxen (Pp) [Aleve 220Mg (Pp)] 2 tab PO BID PRN 09/18/17 11/28/18 History Polyethylene Glycol 3350 [Miralax] 17 gm PO BID 09/18/17 11/28/18 History calcitriol 0.25 mcg capsule 0.5 mcg PO TID cap 11/05/17 11/28/18 History Lisinopril [Zestril] 20 mg PO BID #60 tab 12/06/17 11/28/18 Rx Promethazine [Phenergan] 25 mg TX Q4HP PRN #30 supp.rect 01/08/18 11/28/18 Rx Calcium Carbonate 1,250 mg PO BID #350 oral.susp 07/12/18 11/28/18 Rx Magnesium Oxide 400 mg PO TID #90 tab 07/12/18 11/28/18 Rx metFORMIN HCL [Metformin HCl] 500 mg PO DAILY #30 tab 10/17/18 11/28/18 Rx Erythromycin Base [Erythromycin] 250 mg PO Q6H cap 10/24/18 11/28/18 Rx Pyridostigmine [Mestinon] 60 mg PO TID #90 tab 10/24/18 11/28/18 Rx Cyclobenzaprine [Flexeril] 10 mg PO TIDP PRN #90 tab 11/27/18 11/28/18 Rx Mupirocin Oint 2% [Bactroban Oint 1 dose TOPICAL BID #0 tube 11/27/18 11/28/18 Rx 2%] Allergies Allergy/AdvReac Type Severity Reaction Status Date / Time Sulfa (Sulfonamide Allergy Severe Anaphylaxis Verified 11/28/18 10:58 Antibiotics) adhesive tape AdvReac Mild Blister Verified 11/28/18 10:58 metoclopramide [From Reglan] AdvReac Mild Anxiety Verified 11/28/18 10:58 steri strips Allergy Severe Blister Uncoded 11/03/18 09:30 Exam Temp Pulse Resp BP Pulse Ox 98.9 F 108 H 20 174/92 96 11/28/18 16:00 11/28/18 11:14 11/28/18 16:00 11/28/18 16:00 11/28/18 16:00 - General physical appearance well developed, well nourished, moderate distress, moderate pain - Eyes PERRL, normal ocular movement - ENT normal pinna, normal nares, normal mucosa, no hearing loss, no congestion - Head Head exam IM: Present: atraumatic, normal inspection, normocephalic - Neck no masses, no bruits, trachea midline, no lymphadenopathy, no venous distension - Cardiovascular Cardiovascular exam IM: Present: normal rate and rhythm, RRR, +S1, +S2, tachycardia. Absent: irregular rhythm, JVD - Respiratory normal expansion, normal respiratory effort, clear to auscultation - Abdomen Abdomen: Present: soft, tender (tender diffuse distention; active bowel sounds), bowel sounds Hernia: Present: none - Genitourinary Present: normal external genitalia - Integumentary Present: no rash, no growths, no abnormal pigmentation - Neurologic Present: normal coordination, normal sensation - Musculoskeletal Present: normal gait, normal posture - Psychiatric Present: oriented to time, oriented to person, oriented to place, speech is normal, memory intact Assessment and Plan (1) Chronic intestinal pseudo-obstruction Nasogastric suction IV hydration Reinstitute oral medications as tolerated Start MiraLAX when she can take by mouth Status: Acute (2) Myasthenia gravis Status: Acute
[2018-11-28] MEDS ORDERED: BENZOCAINE 1 SPRAY BOTTLE TOPICAL PRN (18:31)
[2018-11-28] MEDS: ACETAMINOPHEN 1,000 MG/100 ML BOTTLE IV PRN (20:58)
[2018-11-28] MEDS: DULoxetine 30 MG CAPSULE PO SCH (21:34)
[2018-11-28] MEDS: LISINOPRIL 20 MG TABLET PO SCH (21:34)
[2018-11-28] MEDS: PYRIDOSTIGMINE 60 MG TABLET PO SCH (21:34)
[2018-11-28] MEDS: MUPIROCIN OINT 2% 22GM TOPICAL SCH (21:39)
[2018-11-29] MEDS: HYDROmorphone 2 MG/ML VIAL IV PRN ×7 (02:02→22:20)
[2018-11-29] MEDS: PROMETHAZINE 25 MG/ML VIAL IV PRN ×4 (02:03→16:10)
[2018-11-29] MEDS: 0.9 % SODIUM CHLORIDE 1,000 ML IV SCH ×4 (03:53→23:22)
[2018-11-29] MEDS: POLYETHYLENE GLYCOL 3350 17 GM PACKET PO SCH ×4 (05:31→21:20)
[2018-11-29] MEDS: ERYTHROMYCIN BASE 250 MG TABLET PO SCH ×4 (05:32→22:22)
--- NOTE | 2018-11-29 08:01 | XRay Report ---
CLINICAL INFORMATION: Recurrent small bowel obstruction TECHNIQUE: Dilute Gastrografin was injected through the patient's esophagogastric tube COMPARISON: Previous plain film examination dated 0. Multiple previous CT scans and plain film examinations. FINDINGS: Distended small bowel. Gastrografin passes slowly. It is present within the distal jejunum by 5 hours post ingestion. At 8 hours and 20 hours postingestion the Gastrografin is difficult to visualize. There continues to be distended gas-filled small bowel consistent with at least high-grade partial mechanical small bowel obstruction. IMPRESSION: Delayed passage of dilute Gastrografin through the small bowel consistent with mechanical small bowel obstruction. Interpreted and Authenticated by: All Cormier 11/29/18
[2018-11-29] MEDS: PANTOPRAZOLE 40 MG VIAL IV SCH ×2 (08:11→16:10)
[2018-11-29] MEDS: DULoxetine 30 MG CAPSULE PO SCH ×2 (08:11→21:13)
[2018-11-29] MEDS: MAGNESIUM OXIDE 400 MG TABLET PO SCH ×3 (08:11→21:13)
[2018-11-29] MEDS: LEVOTHYROXINE 125 MCG TABLET PO SCH (08:12)
[2018-11-29] MEDS: PYRIDOSTIGMINE 60 MG TABLET PO SCH ×2 (08:13→21:13)
[2018-11-29] MEDS: metFORMIN 500 MG TABLET PO SCH (08:13)
[2018-11-29] MEDS: predniSONE 20 MG TABLET PO SCH (08:13)
[2018-11-29] MEDS: LISINOPRIL 20 MG TABLET PO SCH ×2 (08:13→21:13)
[2018-11-29] MEDS: MUPIROCIN OINT 2% 22GM TOPICAL SCH ×2 (08:14→21:13)
--- NOTE | 2018-11-29 17:02 | General Surgery Progress Note ---
Subjective Patient reports: still having pain, no flatus, bowel movement, nausea, afebrile Narrative: Note initiated : 11/29/18 at 5:00 pm Service Date, if different from initiated Date: [] Patient: Dayanna Stephens 57 y/o F admitted on 11/28/18 for Abdominal Pain. Chief Complaint: [] Patient is having crampy abdominal pain. She is also having hiccups. X-ray shows that the stomach and small bowel is significantly dilated still. The stomach is dilated in spite of the fact that the nasogastric tube well positio luisito in the fundic portion of stomach. The nasogastric tube is not functioning adequately so it was aspirated and flushed. Nursing services last repositioning the tube until dysfunction. She has a small amount of liquid stool in her stoma appliance. She also is complaining of constant nausea because of her gastric and small bowel distention. A.m. labs were not done. Objective Temp Pulse Resp BP Pulse Ox 98.8 F 102 H 18 149/88 97 11/29/18 15:24 11/29/18 03:22 11/29/18 15:24 11/29/18 15:24 11/29/18 15:24 - Additional Data Intake & Output - Last 24 hours: Intake & Output 11/27/18 11/28/18 11/29/18 11/30/18 05:59 05:59 05:59 05:59 Intake Total 3590 1240 Output Total 2410 Balance 1180 1240 Weight 236 lb 244 lb - General physical appearance well developed, well nourished, moderate distress, moderate pain - Eyes PERRL, normal ocular movement - ENT normal pinna, normal nares, normal mucosa, no hearing loss, no congestion - Neck no masses, no bruits, trachea midline, no lymphadenopathy, no venous distension - Respiratory normal expansion, normal respiratory effort, clear to auscultation - Cardiovascular Cardiovascular exam: Present: normal rate and rhythm, RRR, +S1, +S2, tachycardia. Absent: JVD - Abdomen distended (abdomen is significantly distended ; especially in the upper abdomen. She does have active bowel sounds. She has mild tenderness in the upper abdomen; small amount of stool in ostomy appliance) - Integumentary no rash, no growths, no abnormal pigmentation - Neurologic normal coordination, normal sensation - Musculoskeletal normal gait, normal posture - Psychiatric oriented to time, oriented to person, oriented to place, speech is normal, memor y intact - Labs 11/28/18 04:35 11/28/18 04:35 Assessment and Plan (1) Chronic intestinal pseudo-obstruction Status: Acute Assessment and plan: Nasogastric tube is to be adjusted CBC, and patient panel, lactate and abdominal x-rays in the morning Current Visit: Yes (2) Ileus Status: Acute Current Visit: No (3) Myasthenia gravis Status: Acute Current Visit: No - Time Spent With Patient Total time spent is greater than 50% in coordination of care (as documented) at patient's floor/unit and/or counseling patient:
[2018-11-29 17:17] LABS: Basophils # (Auto) 0 K/mcL (0.0-0.3); Basophils % (Auto) 0.2 % (0.0-2.0); Eosinophils # (Auto) 0.1 K/mcL (0.0-0.7); Eosinophils % (Auto) 1.1 % (0.0-7.0); Granulocytes % (Auto) 76.9 % (38.0-78.0); Lymphocytes % (Auto) 13.8 % (15.5-49.0); Mean Corpuscular HGB Conc 31.3 g/dL (31.0-36.0); Monocytes # (Auto) 0.6 K/mcL (0.1-0.9); Platelet Count 384 K/mcL (140-440); RBC 4.19 M/mcL (4.00-5.20); Red Cell Distribution Width 17.7 % (11.5-14.5)
[2018-11-29 17:36] LABS: ALT/SGPT 10 U/l (0-40); Albumin 3.7 gm/dL (3.2-5.2); Albumin/Globulin Ratio 1.3 (1.0-2.3); Alkaline Phosphatase 74 U/L (39-117); Bilirubin,Direct < 0.2 mg/dL (0.0-0.3); Blood Urea Nitrogen 9 mg/dl (6-20); Gamma Glutamyl Transpeptidase 17 U/L (5-36); Uric Acid 4.6 mg/dL (2.5-8.0)
[2018-11-29] MEDS: ACETAMINOPHEN 1,000 MG/100 ML BOTTLE IV PRN (21:11)
[2018-11-30] MEDS ORDERED: HEPARIN SODIUM,PORCINE/PF 500 UNIT/5 ML SYRINGE IV ONE (01:11)
[2018-11-30] MEDS: HYDROmorphone 2 MG/ML VIAL IV PRN ×8 (01:40→23:40)
[2018-11-30] MEDS: ERYTHROMYCIN BASE 250 MG TABLET PO SCH ×4 (04:48→20:55)
[2018-11-30] MEDS: POLYETHYLENE GLYCOL 3350 17 GM PACKET PO SCH ×4 (04:48→20:56)
[2018-11-30] MEDS: 0.9 % SODIUM CHLORIDE 1,000 ML IV SCH ×4 (04:48→20:56)
[2018-11-30 05:29] LABS: Basophils # (Auto) 0 K/mcL (0.0-0.3); Basophils % (Auto) 0.3 % (0.0-2.0); Eosinophils # (Auto) 0.1 K/mcL (0.0-0.7); Eosinophils % (Auto) 2.2 % (0.0-7.0); Granulocytes % (Auto) 61.5 % (38.0-78.0); Lymphocytes # (Auto) 1.5 K/mcL (1.5-4.8); Lymphocytes % (Auto) 23.8 % (15.5-49.0); Mean Cell Volume 77.9 fL (80.0-100.0); Mean Corpuscular HGB Conc 30.7 g/dL (31.0-36.0); Monocytes # (Auto) 0.8 K/mcL (0.1-0.9); Monocytes % (Auto) 12.2 % (1.0-12.0); Platelet Count 322 K/mcL (140-440); RBC 3.85 M/mcL (4.00-5.20); Red Cell Distribution Width 17.3 % (11.5-14.5)
[2018-11-30 05:50] LABS: ALT/SGPT 9 U/l (0-40); Albumin 3.1 gm/dL (3.2-5.2); Albumin/Globulin Ratio 1.2 (1.0-2.3); Alkaline Phosphatase 63 U/L (39-117); Bilirubin,Direct < 0.2 mg/dL (0.0-0.3); Blood Urea Nitrogen 9 mg/dl (6-20); Gamma Glutamyl Transpeptidase 16 U/L (5-36); Uric Acid 4.6 mg/dL (2.5-8.0)
[2018-11-30] MEDS: LEVOTHYROXINE 125 MCG TABLET PO SCH (08:47)
[2018-11-30] MEDS: metFORMIN 500 MG TABLET PO SCH (08:47)
[2018-11-30] MEDS: predniSONE 20 MG TABLET PO SCH (08:51)
[2018-11-30] MEDS: DULoxetine 30 MG CAPSULE PO SCH ×2 (08:51→20:55)
[2018-11-30] MEDS: PYRIDOSTIGMINE 60 MG TABLET PO SCH ×2 (08:51→20:55)
[2018-11-30] MEDS: LISINOPRIL 20 MG TABLET PO SCH ×2 (08:51→20:55)
[2018-11-30] MEDS: MUPIROCIN OINT 2% 22GM TOPICAL SCH ×2 (08:51→20:56)
[2018-11-30] MEDS: MAGNESIUM OXIDE 400 MG TABLET PO SCH ×3 (08:51→20:55)
[2018-11-30] MEDS: PANTOPRAZOLE 40 MG VIAL IV SCH ×2 (09:16→16:47)
[2018-11-30] MEDS: PROMETHAZINE 25 MG/ML VIAL IV PRN (09:16)
[2018-11-30] MEDS: ACETAMINOPHEN 1,000 MG/100 ML BOTTLE IV PRN (09:55)
--- NOTE | 2018-11-30 13:04 | XRay Report ---
CLINICAL INFORMATION: Small bowel obstruction TECHNIQUE: Supine and upright abdomen COMPARISON: Previous examination dated 0 FINDINGS: Contrast material has passed from the small bowel into the colon. There is contrast material in the ascending colon. There is dilated gas filled small bowel. Appearance remains consistent with high-grade partial mechanical small bowel obstruction. There are associated air-fluid levels. No biliary or portal venous gas. No pneumatosis. Right hemidiaphragm is not included on upright film. IMPRESSION: 1. High-grade partial mechanical small bowel obstruction 2. Contrast material within the ascending colon. Interpreted and Authenticated by: All Cormier 11/30/18
--- NOTE | 2018-11-30 14:27 | General Surgery Progress Note ---
Subjective Patient reports: feels better, still having pain, no flatus, diarrhea, nausea, afebrile Narrative: Note initiated : 11/30/18 at 2:25 pm Service Date, if different from initiated Date: [] Patient: Dayanna Stephens 57 y/o F admitted on 11/28/18 for Abdominal Pain. Chief Complaint: [patient's abdominal distention is much less. She had about 2000 cc of NG output and less than 100 cc of stoma output of liquid stool. She has less discomfort. Abdominal x-rays shows contrast moving through the bowel to the right colon. White blood count 6.3 hemoglobin 9.2 hematocrit 30 potassium 3.6 BUN 9 creatinine 0.7..] Objective Temp Pulse Resp BP Pulse Ox 98.2 F 99 H 18 145/86 95 11/30/18 11:28 11/30/18 03:41 11/30/18 11:28 11/30/18 11:28 11/30/18 11:28 - Additional Data Intake & Output - Last 24 hours: Intake & Output 11/28/18 11/29/18 11/30/18 12/01/18 05:59 05:59 05:59 05:59 Intake Total 3590 3340 1100 Output Total 2410 2420 1860 Balance 1180 920 -760 Weight 236 lb 244 lb 250 lb 250 lb - General physical appearance well developed, well nourished, no distress - ENT normal pinna, normal nares, normal mucosa, no hearing loss, no congestion - Neck no masses, no bruits, trachea midline, no lymphadenopathy, no venous distension - Respiratory normal expansion, normal respiratory effort, clear to percussion, clear to auscultation - Cardiovascular Cardiovascular exam: Present: normal rate and rhythm, +S1, +S2, tachycardia. Absent: JVD - Abdomen tender (abdomen is less distended and is soft; she has good active bowel sounds. She has significant decrease tenderness.) - Integumentary no rash, no growths, no abnormal pigmentation - Neurologic normal coordination, normal sensation - Musculoskeletal normal gait, normal posture - Psychiatric oriented to time, oriented to person, oriented to place, speech is normal, memory intact - Labs 11/30/18 04:22 11/30/18 04:22 Diabetes panel 11/29/18 11/30/18 Range/Units 16:18 04:22 Sodium 141 138 (133-145) mmol/L Potassium 3.9 3.6 (3.3-5.1) mmol/L Chloride 100 99 (96-108) mmol/L Carbon Dioxide 30 28 (22-30) mmol/L BUN 9 9 (6-20) mg/dl Creatinine 0.6 0.7 (0.6-1.1) mg/dl Glucose 169 H 139 H (70-105) mg/dL Calcium 7.6 L 7.0 L (8.6-10.4) mg/dl AST 9 10 (0-37) U/l ALT 10 9 (0-40) U/l Alkaline Phosphatase 74 63 (39-117) U/L Total Protein 6.6 5.7 L (5.9-8.4) gm/dL Albumin 3.7 3.1 L (3.2-5.2) gm/dL Triglycerides 257 H 173 H (<150) mg/dl Calcium panel 11/29/18 11/30/18 Range/Units 16:18 04:22 Calcium 7.6 L 7.0 L (8.6-10.4) mg/dl Phosphorus 4.2 4.0 (2.7-4.5) mg/dL Albumin 3.7 3.1 L (3.2-5.2) gm/dL Pituitary panel 11/29/18 11/30/18 Range/Units 16:18 04:22 Sodium 141 138 (133-145) mmol/L Potassium 3.9 3.6 (3.3-5.1) mmol/L Chloride 100 99 (96-108) mmol/L Carbon Dioxide 30 28 (22-30) mmol/L BUN 9 9 (6-20) mg/dl Creatinine 0.6 0.7 (0.6-1.1) mg/dl Glucose 169 H 139 H (70-105) mg/dL Calcium 7.6 L 7.0 L (8.6-10.4) mg/dl Adrenal panel 11/29/18 11/30/18 Range/Units 16:18 04:22 Sodium 141 138 (133-145) mmol/L Potassium 3.9 3.6 (3.3-5.1) mmol/L Chloride 100 99 (96-108) mmol/L Carbon Dioxide 30 28 (22-30) mmol/L BUN 9 9 (6-20) mg/dl Creatinine 0.6 0.7 (0.6-1.1) mg/dl Glucose 169 H 139 H (70-105) mg/dL Calcium 7.6 L 7.0 L (8.6-10.4) mg/dl Total Bilirubin 0.2 0.2 (0.0-1.0) mg/dL AST 9 10 (0-37) U/l ALT 10 9 (0-40) U/l Alkaline Phosphatase 74 63 (39-117) U/L Total Protein 6.6 5.7 L (5.9-8.4) gm/dL Albumin 3.7 3.1 L (3.2-5.2) gm/dL Assessment and Plan (1) Chronic intestinal pseudo-obstruction Status: Acute Assessment and plan: May have ice chips and popsicles CBC, and patient panel, lactate and abdominal x-rays in the morning Repeat abdominal x-rays in the morning Current Visit: Yes (2) Ileus Status: Acute Current Visit: No (3) Myasthenia gravis Status: Acute Current Visit: No - Time Spent With Patient Total time spent is greater than 50% in coordination of care (as documented) at patient's floor/unit and/or counseling patient:
[2018-12-01] MEDS: 0.9 % SODIUM CHLORIDE 1,000 ML IV SCH ×6 (00:01→22:45)
[2018-12-01] MEDS: HYDROmorphone 2 MG/ML VIAL IV PRN ×7 (03:15→21:13)
[2018-12-01] MEDS: ERYTHROMYCIN BASE 250 MG TABLET PO SCH ×4 (03:15→20:56)
[2018-12-01] MEDS: POLYETHYLENE GLYCOL 3350 17 GM PACKET PO SCH ×4 (03:24→20:56)
[2018-12-01 05:11] LABS: Basophils # (Auto) 0 K/mcL (0.0-0.3); Basophils % (Auto) 0.3 % (0.0-2.0); Eosinophils # (Auto) 0.2 K/mcL (0.0-0.7); Eosinophils % (Auto) 2.3 % (0.0-7.0); Granulocytes % (Auto) 72.3 % (38.0-78.0); Lymphocytes # (Auto) 1.4 K/mcL (1.5-4.8); Lymphocytes % (Auto) 16.6 % (15.5-49.0); Mean Cell Volume 77.8 fL (80.0-100.0); Mean Corpuscular HGB Conc 31.1 g/dL (31.0-36.0); Monocytes # (Auto) 0.7 K/mcL (0.1-0.9); Monocytes % (Auto) 8.5 % (1.0-12.0); Platelet Count 312 K/mcL (140-440); RBC 3.66 M/mcL (4.00-5.20); Red Cell Distribution Width 17.3 % (11.5-14.5)
[2018-12-01 05:58] LABS: ALT/SGPT 8 U/l (0-40); Albumin 2.6 gm/dL (3.2-5.2); Alkaline Phosphatase 63 U/L (39-117); Bilirubin,Direct < 0.2 mg/dL (0.0-0.3); Blood Urea Nitrogen 6 mg/dl (6-20); Gamma Glutamyl Transpeptidase 14 U/L (5-36); Uric Acid 4.5 mg/dL (2.5-8.0)
[2018-12-01] MEDS ORDERED: CALCIUM CHLORIDE 1,000 MG/10 ML SYRINGE IV ONE ×3 (06:01→06:07)
[2018-12-01] MEDS: PANTOPRAZOLE 40 MG VIAL IV SCH ×2 (06:30→16:09)
[2018-12-01] MEDS: predniSONE 20 MG TABLET PO SCH (06:31)
[2018-12-01] MEDS: LEVOTHYROXINE 125 MCG TABLET PO SCH (06:31)
[2018-12-01] MEDS: metFORMIN 500 MG TABLET PO SCH (06:31)
[2018-12-01] MEDS: LISINOPRIL 20 MG TABLET PO SCH ×2 (07:23→20:56)
[2018-12-01] MEDS: MUPIROCIN OINT 2% 22GM TOPICAL SCH ×2 (07:23→21:00)
[2018-12-01] MEDS: DULoxetine 30 MG CAPSULE PO SCH ×2 (07:23→20:56)
[2018-12-01] MEDS: PYRIDOSTIGMINE 60 MG TABLET PO SCH ×2 (07:23→20:56)
[2018-12-01] MEDS: MAGNESIUM OXIDE 400 MG TABLET PO SCH ×3 (07:23→20:56)
[2018-12-01] MEDS ORDERED: MAGNESIUM SULFATE 4 GM/100 ML BAG IV ONE (09:15)
--- NOTE | 2018-12-01 10:48 | XRay Report ---
CLINICAL INFORMATION: Small bowel obstruction TECHNIQUE: Supine and upright abdomen COMPARISON: Previous examinations dated 11/30/2018, 0-15 19 FINDINGS: Esophagogastric tube in the stomach. There is contrast material within the ascending colon. There is persistent dilated gas-filled small bowel No pneumoperitoneum. No biliary or portal venous gas. No pneumatosis.. Findings remain consistent with high-grade partial mechanical small bowel obstruction. Bowel gas pattern is unchanged IMPRESSION: 1. Contrast material within the ascending colon 2. Findings remain consistent with high-grade partial mechanical small bowel obstruction Interpreted and Authenticated by: All Cormier 12/01/18
--- NOTE | 2018-12-01 16:23 | General Surgery Progress Note ---
Subjective Patient reports: pain is less, no flatus, no bowel movement, nausea, afebrile Narrative: Note initiated : 12/01/18 at 4:21 pm Service Date, if different from initiated Date: [] Patient: Dayanna Stephens 57 y/o F admitted on 11/28/18 for Abdominal Pain. Chief Complaint: [patient has not had any change in distention. She's not had any output through her stoma. White blood count 8.3; hemoglobin 8.9; calcium 5.9; magnesium 1.4; abdominal series shows persistent dilation of bowel without any significant change] Objective Temp Pulse Resp BP Pulse Ox 97.9 F 91 H 20 145/89 95 12/01/18 15:42 12/01/18 06:40 12/01/18 15:42 12/01/18 15:42 12/01/18 15:42 - Additional Data Intake & Output - Last 24 hours: Intake & Output 11/29/18 11/30/18 12/01/18 12/02/18 05:59 05:59 05:59 05:59 Intake Total 3590 3340 3100 2920 Output Total 2410 2420 3660 3350 Balance 1180 920 -560 -430 Weight 244 lb 250 lb 253 lb - General physical appearance well developed, well nourished, no distress - Eyes PERRL, normal ocular movement - ENT normal pinna, normal nares, normal mucosa, no hearing loss, no congestion - Neck no masses, no bruits, trachea midline, no lymphadenopathy, no venous distension - Respiratory normal expansion, normal respiratory effort, clear to auscultation - Cardiovascular Cardiovascular exam: Present: normal rate and rhythm, +S1, +S2, tachycardia. Absent: JVD - Abdomen tender (abdomen is less distended; she has active bowel sounds; no output through her stoma), bowel sounds (present), surgical scars (none), masses (none) - Integumentary no rash, no growths, no abnormal pigmentation - Neurologic normal coordination, normal sensation - Musculoskeletal normal gait, normal posture - Psychiatric oriented to time, oriented to person, oriented to place, speech is normal, memory intact - Labs 12/01/18 03:44 12/01/18 03:44 Diabetes panel 12/01/18 Range/Units 03:44 Sodium 138 (133-145) mmol/L Potassium 3.9 (3.3-5.1) mmol/L Chloride 104 (96-108) mmol/L Carbon Dioxide 21 L (22-30) mmol/L BUN 6 (6-20) mg/dl Creatinine 0.7 (0.6-1.1) mg/dl Glucose 93 (70-105) mg/dL Calcium 5.9 L* (8.6-10.4) mg/dl AST 13 (0-37) U/l ALT 8 (0-40) U/l Alkaline Phosphatase 63 (39-117) U/L Total Protein 5.3 L (5.9-8.4) gm/dL Albumin 2.6 L (3.2-5.2) gm/dL Triglycerides 163 H (<150) mg/dl Calcium panel 12/01/18 Range/Units 03:44 Calcium 5.9 L* (8.6-10.4) mg/dl Phosphorus 4.0 (2.7-4.5) mg/dL Albumin 2.6 L (3.2-5.2) gm/dL Pituitary panel 12/01/18 Range/Units 03:44 Sodium 138 (133-145) mmol/L Potassium 3.9 (3.3-5.1) mmol/L Chloride 104 (96-108) mmol/L Carbon Dioxide 21 L (22-30) mmol/L BUN 6 (6-20) mg/dl Creatinine 0.7 (0.6-1.1) mg/dl Glucose 93 (70-105) mg/dL Calcium 5.9 L* (8.6-10.4) mg/dl Adrenal panel 12/01/18 Range/Units 03:44 Sodium 138 (133-145) mmol/L Potassium 3.9 (3.3-5.1) mmol/L Chloride 104 (96-108) mmol/L Carbon Dioxide 21 L (22-30) mmol/L BUN 6 (6-20) mg/dl Creatinine 0.7 (0.6-1.1) mg/dl Glucose 93 (70-105) mg/dL Calcium 5.9 L* (8.6-10.4) mg/dl Total Bilirubin 0.2 (0.0-1.0) mg/dL AST 13 (0-37) U/l ALT 8 (0-40) U/l Alkaline Phosphatase 63 (39-117) U/L Total Protein 5.3 L (5.9-8.4) gm/dL Albumin 2.6 L (3.2-5.2) gm/dL Assessment and Plan (1) Chronic intestinal pseudo-obstruction Status: Acute Assessment and plan: May have ice chips and popsicles CBC, and patient panel, Repeat abdominal x-rays in the morning We will make decision concerning operative treatment after evaluation tomorrow She also will need to have TPN started tomorrow if she does not improve Type and cross for 2 units packed red cells in anticipation of possible exploratory laparotomy Current Visit: Yes (2) Ileus Status: Acute Current Visit: No (3) Myasthenia gravis Status: Acute Current Visit: No - Time Spent With Patient Total time spent is greater than 50% in coordination of care (as documented) at patient's floor/unit and/or counseling patient:
[2018-12-01] MEDS ORDERED: 0.9 % SODIUM CHLORIDE 250 ML IV SCH (16:45)
[2018-12-02] MEDS: HYDROmorphone 2 MG/ML VIAL IV PRN ×7 (01:14→19:16)
[2018-12-02] MEDS: ERYTHROMYCIN BASE 250 MG TABLET PO SCH ×4 (04:01→21:43)
[2018-12-02] MEDS: POLYETHYLENE GLYCOL 3350 17 GM PACKET PO SCH ×4 (04:01→21:39)
[2018-12-02] MEDS: 0.9 % SODIUM CHLORIDE 1,000 ML IV SCH ×3 (05:08→19:06)
[2018-12-02 05:56] LABS: Basophils # (Auto) 0 K/mcL (0.0-0.3); Basophils % (Auto) 0.3 % (0.0-2.0); Eosinophils # (Auto) 0.1 K/mcL (0.0-0.7); Eosinophils % (Auto) 2.1 % (0.0-7.0); Granulocytes % (Auto) 66.7 % (38.0-78.0); Lymphocytes # (Auto) 1.3 K/mcL (1.5-4.8); Mean Cell Volume 77.6 fL (80.0-100.0); Mean Corpuscular HGB Conc 31.3 g/dL (31.0-36.0); Monocytes # (Auto) 0.7 K/mcL (0.1-0.9); Monocytes % (Auto) 10.9 % (1.0-12.0); Platelet Count 303 K/mcL (140-440); RBC 3.72 M/mcL (4.00-5.20); Red Cell Distribution Width 17.3 % (11.5-14.5)
[2018-12-02 05:57] LABS: ALT/SGPT 9 U/l (0-40); Albumin 2.5 gm/dL (3.2-5.2); Albumin/Globulin Ratio 0.9 (1.0-2.3); Alkaline Phosphatase 62 U/L (39-117); Bilirubin,Direct < 0.2 mg/dL (0.0-0.3); Blood Urea Nitrogen 2 mg/dl (6-20); Gamma Glutamyl Transpeptidase 11 U/L (5-36); Uric Acid 5.3 mg/dL (2.5-8.0)
[2018-12-02] MEDS: PANTOPRAZOLE 40 MG VIAL IV SCH ×2 (08:06→17:12)
[2018-12-02] MEDS: MAGNESIUM OXIDE 400 MG TABLET PO SCH ×3 (08:07→21:43)
[2018-12-02] MEDS: MUPIROCIN OINT 2% 22GM TOPICAL SCH ×2 (08:07→21:45)
[2018-12-02] MEDS: predniSONE 20 MG TABLET PO SCH (08:07)
[2018-12-02] MEDS: PYRIDOSTIGMINE 60 MG TABLET PO SCH ×2 (08:07→21:43)
[2018-12-02] MEDS: DULoxetine 30 MG CAPSULE PO SCH ×2 (08:07→21:43)
[2018-12-02] MEDS: LISINOPRIL 20 MG TABLET PO SCH ×2 (08:07→21:43)
[2018-12-02] MEDS: LEVOTHYROXINE 125 MCG TABLET PO SCH (08:07)
[2018-12-02] MEDS: metFORMIN 500 MG TABLET PO SCH (08:07)
--- NOTE | 2018-12-02 09:29 | XRay Report ---
CLINICAL INFORMATION: Recurrent small bowel obstruction TECHNIQUE: Supine and upright abdomen COMPARISON: Previous examinations dated 12/01/2018, 11/30/2018, 0-15 19 FINDINGS: Esophagogastric tube remains in the stomach. There is contrast material within the ascending and descending colon. There is dilated gas filled small bowel distention appears to be slightly less than on 12/01/2018. Appearance remains consistent with mechanical small bowel obstruction. This is considered partial and high-grade. No pneumoperitoneum. No biliary or portal venous gas. IMPRESSION: 1. Contrast material within the ascending and descending colon 2. Slight interval decrease in small bowel distention Interpreted and Authenticated by: All Cormier 12/02/18
[2018-12-02] MEDS: MAGNESIUM HYDROXIDE 30 ML ORAL.SUSP PO SCH ×4 (12:55→19:21)
[2018-12-02] MEDS ORDERED: BENZOCAINE/MENTHOL 1 LOZENGE PO PRN (17:34)
--- NOTE | 2018-12-02 17:38 | General Surgery Progress Note ---
Subjective Patient reports: feels better, pain is less, flatus, bowel movement, afebrile Narrative: Note initiated : 12/02/18 at 5:36 pm Service Date, if different from initiated Date: [] Patient: Dayanna Stephens 57 y/o F admitted on 11/28/18 for Abdominal Pain. Chief Complaint: [] Pertinent ROS: Patient is having more output with the addition of milk of magnesia. Her abdomen is much softer and her pain is significantly improved. She no longer has nausea. Objective Temp Pulse Resp BP Pulse Ox 98.2 F 96 H 16 128/78 93 12/02/18 16:00 12/02/18 16:00 12/02/18 16:00 12/02/18 16:00 12/02/18 16:00 - Additional Data Intake & Output - Last 24 hours: Intake & Output 11/30/18 12/01/18 12/02/18 12/03/18 05:59 05:59 05:59 05:59 Intake Total 3340 3100 5237 1180 Output Total 2420 3660 5150 1810 Balance 920 -560 87 -630 Weight 250 lb 253 lb 245 lb - General physical appearance well developed, well nourished, no distress - Eyes PERRL, normal ocular movement - ENT normal pinna, normal nares, normal mucosa, no hearing loss, no congestion - Neck no masses, no bruits, trachea midline, no lymphadenopathy, no venous distension - Respiratory normal expansion, normal respiratory effort, clear to auscultation - Cardiovascular Cardiovascular exam: Present: normal rate and rhythm, RRR, +S1, +S2. Absent: JVD, tachycardia - Abdomen non tender, bowel sounds - Integumentary no rash, no growths, no abnormal pigmentation - Neurologic normal coordination, normal sensation - Musculoskeletal normal gait, normal posture - Psychiatric oriented to time - Labs 12/02/18 03:55 12/02/18 03:55 Diabetes panel 12/02/18 Range/Units 03:55 Sodium 142 (133-145) mmol/L Potassium 3.6 (3.3-5.1) mmol/L Chloride 104 (96-108) mmol/L Carbon Dioxide 25 (22-30) mmol/L BUN 2 L (6-20) mg/dl Creatinine 0.6 (0.6-1.1) mg/dl Glucose 115 H (70-105) mg/dL Calcium 7.1 L (8.6-10.4) mg/dl AST 13 (0-37) U/l ALT 9 (0-40) U/l Alkaline Phosphatase 62 (39-117) U/L Total Protein 5.2 L (5.9-8.4) gm/dL Albumin 2.5 L (3.2-5.2) gm/dL Triglycerides 158 H (<150) mg/dl Calcium panel 12/02/18 Range/Units 03:55 Calcium 7.1 L (8.6-10.4) mg/dl Phosphorus 4.1 (2.7-4.5) mg/dL Albumin 2.5 L (3.2-5.2) gm/dL Pituitary panel 12/02/18 Range/Units 03:55 Sodium 142 (133-145) mmol/L Potassium 3.6 (3.3-5.1) mmol/L Chloride 104 (96-108) mmol/L Carbon Dioxide 25 (22-30) mmol/L BUN 2 L (6-20) mg/dl Creatinine 0.6 (0.6-1.1) mg/dl Glucose 115 H (70-105) mg/dL Calcium 7.1 L (8.6-10.4) mg/dl Adrenal panel 12/02/18 Range/Units 03:55 Sodium 142 (133-145) mmol/L Potassium 3.6 (3.3-5.1) mmol/L Chloride 104 (96-108) mmol/L Carbon Dioxide 25 (22-30) mmol/L BUN 2 L (6-20) mg/dl Creatinine 0.6 (0.6-1.1) mg/dl Glucose 115 H (70-105) mg/dL Calcium 7.1 L (8.6-10.4) mg/dl Total Bilirubin < 0.2 (0.0-1.0) mg/dL AST 13 (0-37) U/l ALT 9 (0-40) U/l Alkaline Phosphatase 62 (39-117) U/L Total Protein 5.2 L (5.9-8.4) gm/dL Albumin 2.5 L (3.2-5.2) gm/dL Assessment and Plan (1) Chronic intestinal pseudo-obstruction Status: Acute Assessment and plan: May have ice chips and popsicles CBC, and patient panel, Repeat abdominal x-rays in the morning We will make decision concerning operative treatment after evaluation tomorrow She also will need to have TPN started tomorrow if she does not improve Type and cross for 2 units packed red cells in anticipation of possible exploratory laparotomy Current Visit: Yes (2) Ileus Status: Acute Current Visit: No (3) Myasthenia gravis Status: Acute Current Visit: No - Time Spent With Patient Total time spent is greater than 50% in coordination of care (as documented) at patient's floor/unit and/or counseling patient:
[2018-12-02] MEDS: ACETAMINOPHEN 1,000 MG/100 ML BOTTLE IV PRN (21:41)
[2018-12-03] MEDS: MAGNESIUM HYDROXIDE 30 ML ORAL.SUSP PO SCH ×4 (00:57→20:26)
[2018-12-03] MEDS: HYDROmorphone 2 MG/ML VIAL IV PRN ×7 (01:01→20:25)
[2018-12-03] MEDS: 0.9 % SODIUM CHLORIDE 1,000 ML IV SCH ×3 (02:12→17:55)
[2018-12-03] MEDS: POLYETHYLENE GLYCOL 3350 17 GM PACKET PO SCH ×4 (04:05→21:45)
[2018-12-03] MEDS: ERYTHROMYCIN BASE 250 MG TABLET PO SCH ×4 (04:06→22:30)
[2018-12-03] MEDS: LEVOTHYROXINE 125 MCG TABLET PO SCH (07:42)
[2018-12-03] MEDS: PANTOPRAZOLE 40 MG VIAL IV SCH ×2 (07:43→17:45)
[2018-12-03] MEDS: metFORMIN 500 MG TABLET PO SCH (07:44)
[2018-12-03] MEDS: LISINOPRIL 20 MG TABLET PO SCH ×2 (08:47→21:45)
[2018-12-03] MEDS: DULoxetine 30 MG CAPSULE PO SCH ×2 (08:47→21:45)
[2018-12-03] MEDS: PYRIDOSTIGMINE 60 MG TABLET PO SCH ×2 (08:47→21:45)
[2018-12-03] MEDS: MAGNESIUM OXIDE 400 MG TABLET PO SCH ×3 (08:48→21:45)
[2018-12-03] MEDS: predniSONE 20 MG TABLET PO SCH (08:48)
[2018-12-03] MEDS: MUPIROCIN OINT 2% 22GM TOPICAL SCH ×2 (10:03→21:44)
[2018-12-03] MEDS: ACETAMINOPHEN 1,000 MG/100 ML BOTTLE IV PRN (10:19)
--- NOTE | 2018-12-03 14:46 | General Surgery Progress Note ---
Subjective Patient reports: feels better, pain is less, tolerating liquids well, no flatus, bowel movement, afebrile Narrative: Note initiated : 12/03/18 at 2:44 pm Service Date, if different from initiated Date: [] Patient: Dayanna Stephens 57 y/o F admitted on 11/28/18 for Abdominal Pain. Chief Complaint: [] Patient is doing well. She had multiple bowel movements last night and today. She's passed copious amounts of flatus. Her abdomen is less distended and her pain is resolved. She's had liquids without nausea. White count 5.3 hemoglobin 13.2 BUN 21 creatinine 0.7. Abdominal x-rays showed decrease in gas in small bowel and colon. Objective Temp Pulse Resp BP Pulse Ox 98.4 F 79 20 110/68 96 12/03/18 12:00 12/03/18 12:00 12/03/18 12:00 12/03/18 12:00 12/03/18 12:00 - Additional Data Intake & Output - Last 24 hours: Intake & Output 12/01/18 12/02/18 12/03/18 12/04/18 05:59 05:59 05:59 05:59 Intake Total 3100 5237 3620 700 Output Total 3660 5150 4880 600 Balance -560 87 -1260 100 Weight 253 lb 245 lb 248 lb 8 oz - General physical appearance well developed, well nourished, no distress - Eyes PERRL, normal ocular movement - ENT normal pinna, normal nares, normal mucosa, no hearing loss, no congestion - Neck no masses, no bruits, trachea midline, no lymphadenopathy, no venous distension - Respiratory normal expansion, normal respiratory effort, clear to auscultation - Cardiovascular Cardiovascular exam: Present: normal rate and rhythm, RRR, +S1, +S2. Absent: JVD, systolic murmur, tachycardia - Abdomen non tender, bowel sounds (present), surgical scars (none), masses (none), dist ended (abdomen is much less distended) - Integumentary no rash, no growths, no abnormal pigmentation - Neurologic normal coordination, normal sensation - Musculoskeletal normal gait, normal posture - Psychiatric oriented to time - Labs 12/02/18 03:55 12/02/18 03:55 Assessment and Plan (1) Chronic intestinal pseudo-obstruction Status: Acute Assessment and plan: CBC, and patient panel, Repeat abdominal x-rays in the morning Type and cross for 2 units packed red cells in anticipation of possible exploratory laparotomy Full liquid diet Current Visit: Yes (2) Ileus Status: Acute Current Visit: No (3) Myasthenia gravis Status: Acute Current Visit: No - Time Spent With Patient Total time spent is greater than 50% in coordination of care (as documented) at patient's floor/unit and/or counseling patient:
[2018-12-03] MEDS: CALCITRIOL 0.25 MCG CAPSULE PO SCH ×2 (16:36→21:45)
[2018-12-03] MEDS: PROMETHAZINE 25 MG/ML VIAL IV PRN ×2 (16:53→21:42)
--- NOTE | 2018-12-03 18:55 | XRay Report ---
CLINICAL INFORMATION: Mechanical small bowel obstruction TECHNIQUE: Supine and upright abdomen COMPARISON: Previous examinations dated 12/02/2018, 12/01/2018, 11/30/2018, 11/28/2018, 11/27/2018. FINDINGS: Contrast material within the colon has passed. Distended dilated gas-filled small bowel with air-fluid levels. Appearance remains consistent with partial high-grade mechanical small bowel obstruction. No pneumoperitoneum. No biliary or portal venous gas. No pneumatosis. IMPRESSION: 1. Interval passage of contrast material within the colon 2. Persistent dilated gas-filled small bowel consistent with high-grade partial mechanical small bowel obstruction Interpreted and Authenticated by: All Cormier 12/03/18
[2018-12-03] MEDS: CALCIUM CARBONATE 1,250 MG/5 ML ORAL.SUSP PO SCH (21:44)
[2018-12-04] MEDS: ERYTHROMYCIN BASE 250 MG TABLET PO SCH ×5 (00:21→21:14)
[2018-12-04] MEDS: HYDROmorphone 2 MG/ML VIAL IV PRN ×5 (00:21→20:58)
[2018-12-04] MEDS: PROMETHAZINE 25 MG/ML VIAL IV PRN ×6 (01:02→23:26)
[2018-12-04] MEDS: MAGNESIUM HYDROXIDE 30 ML ORAL.SUSP PO SCH ×4 (01:06→19:37)
[2018-12-04] MEDS: 0.9 % SODIUM CHLORIDE 1,000 ML IV SCH ×5 (01:06→22:55)
[2018-12-04] MEDS: POLYETHYLENE GLYCOL 3350 17 GM PACKET PO SCH ×5 (04:50→21:02)
[2018-12-04 06:17] LABS: ALT/SGPT 12 U/l (0-40); Albumin 2.8 gm/dL (3.2-5.2); Albumin/Globulin Ratio 0.9 (1.0-2.3); Alkaline Phosphatase 66 U/L (39-117); Bilirubin,Direct < 0.2 mg/dL (0.0-0.3); Blood Urea Nitrogen < 2 mg/dl (6-20); Gamma Glutamyl Transpeptidase 12 U/L (5-36); Uric Acid 4.5 mg/dL (2.5-8.0)
[2018-12-04 06:27] LABS: Basophils # (Auto) 0 K/mcL (0.0-0.3); Basophils % (Auto) 0.4 % (0.0-2.0); Eosinophils # (Auto) 0.1 K/mcL (0.0-0.7); Eosinophils % (Auto) 1.9 % (0.0-7.0); Granulocytes % (Auto) 64.2 % (38.0-78.0); Lymphocytes # (Auto) 1.3 K/mcL (1.5-4.8); Lymphocytes % (Auto) 21.8 % (15.5-49.0); Mean Corpuscular HGB Conc 31.3 g/dL (31.0-36.0); Monocytes # (Auto) 0.7 K/mcL (0.1-0.9); Monocytes % (Auto) 11.7 % (1.0-12.0); Platelet Count 349 K/mcL (140-440); RBC 3.96 M/mcL (4.00-5.20); Red Cell Distribution Width 16.9 % (11.5-14.5)
[2018-12-04] MEDS: PANTOPRAZOLE 40 MG VIAL IV SCH ×2 (07:53→17:53)
[2018-12-04] MEDS: LEVOTHYROXINE 125 MCG TABLET PO SCH (08:02)
[2018-12-04] MEDS: predniSONE 20 MG TABLET PO SCH (08:02)
[2018-12-04] MEDS: metFORMIN 500 MG TABLET PO SCH (08:02)
[2018-12-04] MEDS: ACETAMINOPHEN 1,000 MG/100 ML BOTTLE IV PRN ×2 (08:35→19:37)
[2018-12-04] MEDS: MUPIROCIN OINT 2% 22GM TOPICAL SCH ×2 (09:56→21:01)
[2018-12-04] MEDS: DULoxetine 30 MG CAPSULE PO SCH ×2 (09:58→21:00)
[2018-12-04] MEDS: LISINOPRIL 20 MG TABLET PO SCH ×2 (09:58→21:00)
[2018-12-04] MEDS: MAGNESIUM OXIDE 400 MG TABLET PO SCH ×3 (09:58→21:01)
[2018-12-04] MEDS: PYRIDOSTIGMINE 60 MG TABLET PO SCH ×3 (09:58→21:02)
[2018-12-04] MEDS: CALCITRIOL 0.25 MCG CAPSULE PO SCH ×3 (09:58→21:01)
[2018-12-04] MEDS: CALCIUM CARBONATE 1,250 MG/5 ML ORAL.SUSP PO SCH ×2 (09:58→21:02)
[2018-12-04] MEDS: METHYLNALTREXONE BROMIDE 12 MG/0.6 ML SYRINGE SC SCH (11:08)
--- NOTE | 2018-12-04 17:28 | General Surgery Progress Note ---
Subjective Patient reports: flatus, bowel movement, diarrhea, nausea ( call the legs neurological upper lobe mass is change) Narrative: Note initiated : 12/04/18 at 5:23 pm Service Date, if different from initiated Date: [] Patient: Dayanna Stephens 57 y/o F admitted on 11/28/18 for Abdominal Pain. Chief Complaint: [patient has had slightly more distention but she went 12 hours without taking her medication. This probably contributed to her difficulty. She is encouraged to continue to take the medication as prescribed. She is still having small volume output but not as much as on yesterday. Except for distention her abdominal exam is otherwise benign.] Objective Temp Pulse Resp BP Pulse Ox 98.5 F 90 16 148/79 96 12/04/18 15:36 12/04/18 15:36 12/04/18 15:36 12/04/18 15:36 12/04/18 15:36 - Additional Data Intake & Output - Last 24 hours: Intake & Output 12/02/18 12/03/18 12/04/18 12/05/18 05:59 05:59 05:59 05:59 Intake Total 5237 3620 3980 2100 Output Total 5150 4880 3800 175 Balance 87 -7661 891 4636 Weight 245 lb 248 lb 8 oz 249 lb 8 oz 249 lb 8 oz - General physical appearance well developed, well nourished, no distress - Eyes PERRL, normal ocular movement - ENT normal pinna, normal nares, normal mucosa, no hearing loss, no congestion - Neck no masses, no bruits, trachea midline, no lymphadenopathy, no venous distension - Respiratory normal expansion, normal respiratory effort, clear to auscultation - Cardiovascular Cardiovascular exam: Present: normal rate and rhythm, RRR, +S1, +S2. Absent: JVD, tachycardia - Abdomen distended (moderate distention with mild tenderness; hyperactive bowel sounds; mild diffuse tenderness) - Integumentary no rash, no growths, no abnormal pigmentation - Neurologic normal coordination, normal sensation - Musculoskeletal normal gait, normal posture - Psychiatric oriented to time, oriented to person, oriented to place, speech is normal, memory intact - Labs 12/04/18 04:15 12/04/18 04:15 Diabetes panel 12/04/18 Range/Units 04:15 Sodium 143 (133-145) mmol/L Potassium 3.3 (3.3-5.1) mmol/L Chloride 102 (96-108) mmol/L Carbon Dioxide 32 H (22-30) mmol/L BUN < 2 L (6-20) mg/dl Creatinine 0.6 (0.6-1.1) mg/dl Glucose 128 H (70-105) mg/dL Calcium 7.0 L (8.6-10.4) mg/dl AST 14 (0-37) U/l ALT 12 (0-40) U/l Alkaline Phosphatase 66 (39-117) U/L Total Protein 5.8 L (5.9-8.4) gm/dL Albumin 2.8 L (3.2-5.2) gm/dL Triglycerides 123 (<150) mg/dl Calcium panel 12/04/18 Range/Units 04:15 Calcium 7.0 L (8.6-10.4) mg/dl Phosphorus 3.2 (2.7-4.5) mg/dL Albumin 2.8 L (3.2-5.2) gm/dL Pituitary panel 12/04/18 Range/Units 04:15 Sodium 143 (133-145) mmol/L Potassium 3.3 (3.3-5.1) mmol/L Chloride 102 (96-108) mmol/L Carbon Dioxide 32 H (22-30) mmol/L BUN < 2 L (6-20) mg/dl Creatinine 0.6 (0.6-1.1) mg/dl Glucose 128 H (70-105) mg/dL Calcium 7.0 L (8.6-10.4) mg/dl Adrenal panel 12/04/18 Range/Units 04:15 Sodium 143 (133-145) mmol/L Potassium 3.3 (3.3-5.1) mmol/L Chloride 102 (96-108) mmol/L Carbon Dioxide 32 H (22-30) mmol/L BUN < 2 L (6-20) mg/dl Creatinine 0.6 (0.6-1.1) mg/dl Glucose 128 H (70-105) mg/dL Calcium 7.0 L (8.6-10.4) mg/dl Total Bilirubin < 0.2 (0.0-1.0) mg/dL AST 14 (0-37) U/l ALT 12 (0-40) U/l Alkaline Phosphatase 66 (39-117) U/L Total Protein 5.8 L (5.9-8.4) gm/dL Albumin 2.8 L (3.2-5.2) gm/dL Assessment and Plan (1) Chronic intestinal pseudo-obstruction Status: Acute Assessment and plan: CBC, and patient panel, Repeat abdominal x-rays in the morning Full liquid diet Current Visit: Yes (2) Ileus Status: Acute Current Visit: No (3) Myasthenia gravis Status: Acute Current Visit: No - Time Spent With Patient Total time spent is greater than 50% in coordination of care (as documented) at patient's floor/unit and/or counseling patient:
[2018-12-05] MEDS: MAGNESIUM HYDROXIDE 30 ML ORAL.SUSP PO SCH ×3 (01:34→13:08)
[2018-12-05] MEDS: HYDROmorphone 2 MG/ML VIAL IV PRN ×6 (01:34→23:52)
[2018-12-05] MEDS: PROMETHAZINE 25 MG/ML VIAL IV PRN ×3 (03:49→11:24)
[2018-12-05] MEDS: ERYTHROMYCIN BASE 250 MG TABLET PO SCH ×2 (03:51→08:54)
[2018-12-05] MEDS: POLYETHYLENE GLYCOL 3350 17 GM PACKET PO SCH ×2 (03:55→08:53)
[2018-12-05 05:50] LABS: Basophils # (Auto) 0 K/mcL (0.0-0.3); Basophils % (Auto) 0.4 % (0.0-2.0); Eosinophils # (Auto) 0.2 K/mcL (0.0-0.7); Eosinophils % (Auto) 2.2 % (0.0-7.0); Granulocytes % (Auto) 67.7 % (38.0-78.0); Lymphocytes # (Auto) 1.8 K/mcL (1.5-4.8); Lymphocytes % (Auto) 20.2 % (15.5-49.0); Mean Corpuscular HGB Conc 31.3 g/dL (31.0-36.0); Monocytes # (Auto) 0.8 K/mcL (0.1-0.9); Monocytes % (Auto) 9.5 % (1.0-12.0); Platelet Count 441 K/mcL (140-440); RBC 4.31 M/mcL (4.00-5.20); Red Cell Distribution Width 17.6 % (11.5-14.5)
[2018-12-05] MEDS: 0.9 % SODIUM CHLORIDE 1,000 ML IV SCH ×3 (05:54→22:39)
[2018-12-05 06:09] LABS: ALT/SGPT 13 U/l (0-40); Albumin/Globulin Ratio 0.9 (1.0-2.3); Alkaline Phosphatase 76 U/L (39-117); Bilirubin,Direct < 0.2 mg/dL (0.0-0.3); Blood Urea Nitrogen 2 mg/dl (6-20); Gamma Glutamyl Transpeptidase 15 U/L (5-36)
[2018-12-05] MEDS: LEVOTHYROXINE 125 MCG TABLET PO SCH (06:54)
[2018-12-05] MEDS: PANTOPRAZOLE 40 MG VIAL IV SCH ×2 (06:54→17:14)
--- NOTE | 2018-12-05 08:31 | XRay Report ---
CLINICAL INFORMATION: Chronic and recurrent mechanical small bowel obstruction TECHNIQUE: Supine and upright abdomen COMPARISON: Multiple previous examinations. Most recent studies dated 12/03/2018, 12/02/2018, 12/01/2018, 11/30/2018, 11/28/2018, 11/27/2018 FINDINGS: Gaseous distention of the stomach. Small bowel is gas-filled and distended. Very little fecal material or gas identified in the colon. There are small bowel air-fluid levels. There is no pneumoperitoneum. No biliary or portal venous gas. No pneumatosis. Bowel gas pattern is consistent with mechanical small bowel obstruction IMPRESSION: 1. Abnormal bowel gas pattern consistent with mechanical small bowel obstruction 2. Gaseous distention of stomach and small bowel Interpreted and Authenticated by: All Cormier 12/05/18
[2018-12-05] MEDS: CALCITRIOL 0.25 MCG CAPSULE PO SCH (08:53)
[2018-12-05] MEDS: DULoxetine 30 MG CAPSULE PO SCH ×2 (08:54→21:37)
[2018-12-05] MEDS: metFORMIN 500 MG TABLET PO SCH (08:54)
[2018-12-05] MEDS: MAGNESIUM OXIDE 400 MG TABLET PO SCH (08:54)
[2018-12-05] MEDS: LISINOPRIL 20 MG TABLET PO SCH (08:54)
[2018-12-05] MEDS: CALCIUM CARBONATE 1,250 MG/5 ML ORAL.SUSP PO SCH (08:54)
[2018-12-05] MEDS: predniSONE 20 MG TABLET PO SCH (08:54)
[2018-12-05] MEDS: PYRIDOSTIGMINE 60 MG TABLET PO SCH (08:54)
[2018-12-05] MEDS: MUPIROCIN OINT 2% 22GM TOPICAL SCH ×2 (08:55→21:37)
[2018-12-05] MEDS: METHYLNALTREXONE BROMIDE 12 MG/0.6 ML SYRINGE SC SCH (09:28)
[2018-12-05] MEDS: ACETAMINOPHEN 1,000 MG/100 ML BOTTLE IV PRN (09:30)
[2018-12-05] MEDS ORDERED: CALCIUM GLUCONATE 4.65 MEQ/10 ML VIAL IV ONE (14:15)
--- NOTE | 2018-12-05 14:41 | General Surgery Progress Note ---
Subjective Patient reports: still having pain, flatus, diarrhea, nausea, vomiting, afebrile Narrative: Note initiated : 12/05/18 at 2:38 pm Service Date, if different from initiated Date: [] Patient: Dayanna Stephens 57 y/o F admitted on 11/28/18 for Abdominal Pain. Chief Complaint: [patient has had early satiety with inability to take oral liquids or medications. She put out about 500 cc of liquid through her stoma but her abdomen is significantly more distended. She also has more tenderness. Abdominal x-ray shows massive dilation of stomach and proximal small bowel. In spite of the fact that she is putting out liquids must rule out potential for midgut recurrent high-grade obstruction because of the potential for perforation if she worsens. Discussed with her the need for laparotomy which will be done tomorrow. In the meantime nasogastric tube will be inserted and she will be started on TPN with lipids. Her lab work is susceptible does not show any evidence of significant infection.] Objective Temp Pulse Resp BP Pulse Ox 99.5 F H 80 24 H 184/118 93 12/05/18 12:00 12/05/18 06:43 12/05/18 12:00 12/05/18 12:00 12/05/18 12:00 - Additional Data Intake & Output - Last 24 hours: Intake & Output 12/03/18 12/04/18 12/05/18 12/06/18 05:59 05:59 05:59 05:59 Intake Total 3620 3980 5800 1100 Output Total 4880 3800 1850 200 Balance -1577 866 6134 900 Weight 248 lb 8 oz 249 lb 8 oz 264 lb - General physical appearance moderate distress, moderate pain, chronically ill - Eyes PERRL, normal ocular movement - ENT normal pinna, normal nares, normal mucosa, no hearing loss, no congestion - Neck no masses, no bruits, trachea midline, no lymphadenopathy, no venous distension - Respiratory normal expansion, normal respiratory effort, clear to auscultation - Cardiovascular Cardiovascular exam: Present: normal rate and rhythm, RRR, +S1, +S2, tachycardia. Absent: JVD - Abdomen tender, distended (abdomen is distended with normoactive bowel sounds; she has mid abdominal tenderness; her stoma has liquid output.) - Integumentary no rash, no growths, no abnormal pigmentation - Neurologic normal coordination, normal sensation - Musculoskeletal normal gait, normal posture - Psychiatric oriented to time, oriented to person, oriented to place, speech is normal, memory intact - Labs 12/05/18 04:20 12/05/18 04:20 Diabetes panel 12/05/18 Range/Units 04:20 Sodium 139 (133-145) mmol/L Potassium 3.5 (3.3-5.1) mmol/L Chloride 96 (96-108) mmol/L Carbon Dioxide 27 (22-30) mmol/L BUN 2 L (6-20) mg/dl Creatinine 0.7 (0.6-1.1) mg/dl Glucose 138 H (70-105) mg/dL Calcium 6.7 L (8.6-10.4) mg/dl AST 17 (0-37) U/l ALT 13 (0-40) U/l Alkaline Phosphatase 76 (39-117) U/L Total Protein 6.4 (5.9-8.4) gm/dL Albumin 3.0 L (3.2-5.2) gm/dL Triglycerides 123 (<150) mg/dl Calcium panel 12/05/18 Range/Units 04:20 Calcium 6.7 L (8.6-10.4) mg/dl Phosphorus 2.8 (2.7-4.5) mg/dL Albumin 3.0 L (3.2-5.2) gm/dL Pituitary panel 12/05/18 Range/Units 04:20 Sodium 139 (133-145) mmol/L Potassium 3.5 (3.3-5.1) mmol/L Chloride 96 (96-108) mmol/L Carbon Dioxide 27 (22-30) mmol/L BUN 2 L (6-20) mg/dl Creatinine 0.7 (0.6-1.1) mg/dl Glucose 138 H (70-105) mg/dL Calcium 6.7 L (8.6-10.4) mg/dl Adrenal panel 12/05/18 Range/Units 04:20 Sodium 139 (133-145) mmol/L Potassium 3.5 (3.3-5.1) mmol/L Chloride 96 (96-108) mmol/L Carbon Dioxide 27 (22-30) mmol/L BUN 2 L (6-20) mg/dl Creatinine 0.7 (0.6-1.1) mg/dl Glucose 138 H (70-105) mg/dL Calcium 6.7 L (8.6-10.4) mg/dl Total Bilirubin 0.2 (0.0-1.0) mg/dL AST 17 (0-37) U/l ALT 13 (0-40) U/l Alkaline Phosphatase 76 (39-117) U/L Total Protein 6.4 (5.9-8.4) gm/dL Albumin 3.0 L (3.2-5.2) gm/dL Assessment and Plan (1) Chronic intestinal pseudo-obstruction Status: Acute Assessment and plan: Patient has evidence persistent partial high-grade obstruction and is not responding to nonoperative management. Discussed operative therapy with her and will proceed with exploratory laparotomy with adhesiolysis and placement of Parra plication tube in the morning. Current Visit: Yes (2) Ileus Status: Chronic Current Visit: No (3) Myasthenia gravis Status: Acute Current Visit: No - Time Spent With Patient Total time spent is greater than 50% in coordination of care (as documented) at patient's floor/unit and/or counseling patient:
[2018-12-05] MEDS ORDERED: TPN PER PHARMACY IV SCH (14:45)
--- NOTE | 2018-12-05 15:51 | XRay Report ---
CLINICAL INFORMATION: Nasogastric tube placement TECHNIQUE: AP supine upper abdomen COMPARISON: Previous plain film examination dated 12/05/2018 FINDINGS: Esophagogastric tube with its tip in the distal stomach. There is gaseous distention of the stomach. There is distended gas filled small bowel. IMPRESSION: Esophagogastric tube with its tip in the gastric antrum Interpreted and Authenticated by: All Cormier 12/05/18
[2018-12-05] MEDS: SODIUM CHLORIDE 0.9% IV SCH ×2 (16:31→23:54)
[2018-12-05] MEDS: CALCIUM GLUCONATE IV SCH ×2 (16:31→23:54)
[2018-12-05] MEDS: PIPERACILLIN SODIUM/TAZOBACTAM 3.375 GM in DEXTROSE 5% IN WATER 50 ML IV SCH ×2 (17:57→23:53)
[2018-12-05] MEDS: methylPREDNISolone SOD SUCC 125 MG/2 ML VIAL IV SCH (20:21)
[2018-12-05] MEDS ORDERED: CALCIUM GLUCONATE 4.65 MEQ/10 ML VIAL ONE (23:44)
[2018-12-05] MEDS ORDERED: SODIUM CHLORIDE IV ONE (23:47)
[2018-12-06] MEDS: PIPERACILLIN SODIUM/TAZOBACTAM 3.375 GM in DEXTROSE 5% IN WATER 50 ML IV SCH ×4 (00:59→17:34)
[2018-12-06] MEDS: ACETAMINOPHEN 1,000 MG/100 ML BOTTLE IV PRN ×2 (04:32→20:59)
[2018-12-06] MEDS: HYDROmorphone 2 MG/ML VIAL IV PRN ×9 (04:32→22:10)
[2018-12-06] MEDS: PROMETHAZINE 25 MG/ML VIAL IV PRN (05:05)
[2018-12-06 05:13] LABS: Basophils # (Auto) 0 K/mcL (0.0-0.3); Basophils % (Auto) 0.1 % (0.0-2.0); Eosinophils # (Auto) 0 K/mcL (0.0-0.7); Eosinophils % (Auto) 0 % (0.0-7.0); Granulocytes % (Auto) 87.6 % (38.0-78.0); Lymphocytes # (Auto) 0.7 K/mcL (1.5-4.8); Lymphocytes % (Auto) 10.9 % (15.5-49.0); Mean Cell Volume 77.9 fL (80.0-100.0); Mean Corpuscular HGB Conc 30.9 g/dL (31.0-36.0); Monocytes # (Auto) 0.1 K/mcL (0.1-0.9); Monocytes % (Auto) 1.4 % (1.0-12.0); Platelet Count 370 K/mcL (140-440); Red Cell Distribution Width 17.1 % (11.5-14.5)
[2018-12-06 05:34] LABS: ALT/SGPT 9 U/l (0-40); Albumin 2.7 gm/dL (3.2-5.2); Alkaline Phosphatase 66 U/L (39-117); Bilirubin,Direct < 0.2 mg/dL (0.0-0.3); Blood Urea Nitrogen 3 mg/dl (6-20); Gamma Glutamyl Transpeptidase 10 U/L (5-36); Uric Acid 3.5 mg/dL (2.5-8.0)
[2018-12-06] MEDS: PANTOPRAZOLE 40 MG VIAL IV SCH ×2 (07:08→16:52)
[2018-12-06] MEDS ORDERED: ALBUMIN HUMAN 25 GM/100 ML BAG IV ONE ×2 (07:28→08:15)
[2018-12-06] MEDS ORDERED: LEVOTHYROXINE 100 MCG VIAL IV SCH (07:30)
[2018-12-06] MEDS ORDERED: ONDANSETRON 4 MG/2 ML VIAL IV ONE (08:15)
[2018-12-06] MEDS ORDERED: MIDAZOLAM 5 MG/5 ML VIAL IV ONE (08:15)
[2018-12-06] MEDS ORDERED: PROPOFOL 200 MG/20 ML VIAL IV ONE (08:15)
[2018-12-06] MEDS ORDERED: LIDOCAINE HCL/PF 100 MG/5 ML SYRINGE IV ONE (08:15)
[2018-12-06] MEDS ORDERED: fentaNYL 250 MCG/5 ML VIAL IV ONE (08:15)
[2018-12-06] MEDS ORDERED: SUCCINYLCHOLINE 20 MG/ML ML IV ONE (08:15)
[2018-12-06] MEDS ORDERED: DEXAMETHASONE 10 MG/ML VIAL IV ONE (08:15)
[2018-12-06] MEDS: DULoxetine 30 MG CAPSULE PO SCH (09:00)
[2018-12-06] MEDS ORDERED: 0.9 % SODIUM CHLORIDE 250 ML IV SCH (09:30)
[2018-12-06] MEDS ORDERED: 0.9 % SODIUM CHLORIDE 10 ML SYRINGE IV PRN (10:15)
[2018-12-06] MEDS ORDERED: IPRATROPIUM/ALBUTEROL 3 ML AMPUL.NEB NEB PRN (11:14)
[2018-12-06] MEDS ORDERED: ACETAMINOPHEN 1,000 MG/100 ML BOTTLE IV ONE (11:14)
[2018-12-06] MEDS ORDERED: diphenhydrAMINE 50 MG/ML VIAL IV PRN (11:14)
[2018-12-06] MEDS ORDERED: METHOCARBAMOL 1,000 MG/10 ML VIAL IV PRN (11:14)
[2018-12-06] MEDS ORDERED: ePHEDrine 50 MG/ML AMPUL IV PRN (11:14)
[2018-12-06] MEDS ORDERED: NALOXONE HCL 0.4 MG/ML VIAL IV PRN (11:14)
[2018-12-06] MEDS ORDERED: BENZOCAINE/MENTHOL 1 LOZENGE PO PRN (11:14)
[2018-12-06] MEDS ORDERED: ATROPINE SULFATE 0.4 MG/ML VIAL IV PRN (11:14)
[2018-12-06] MEDS ORDERED: MEPERIDINE 25 MG/ML SYRINGE IV PRN (11:14)
[2018-12-06] MEDS ORDERED: FLUMAZENIL 0.1 MG/ML ML IV PRN (11:14)
[2018-12-06] MEDS ORDERED: ONDANSETRON 4 MG/2 ML VIAL IV PRN (11:14)
[2018-12-06] MEDS ORDERED: PROMETHAZINE 25 MG/ML VIAL IM PRN (11:14)
[2018-12-06] MEDS ORDERED: LACTATED RINGERS 1,000 ML IV SCH (11:15)
[2018-12-06] MEDS: fentaNYL 100 MCG/2 ML VIAL IV PRN ×4 (11:45→11:51)
--- NOTE | 2018-12-06 11:49 | Brief Operative Note ---
Date of procedure: 12/06/18 Pre-op diagnosis: partial small bowel obstruction; intestinal pseudoobstruction Post-op diagnosis: other (small bowel obstruction;extensive small bowel adhesions;chronic intestinal pseudoobstruction) Procedure: exploratory laparotomy with total small bowel adhesiolysis;LORENE COTO TUBE TOTAL SMALL BOWEL PLICATION Grafts/Implants: Yes (9FT BAKERS TUBE) Anesthesia: GETA Findings: MASSIVE DILATION OF SMALL BOWEL WITH EXTENSIVE DENSE ADHESIONS INVOLVING ALL OF SMALL BOWEL AND MULTIPLE AREAS OF NEAR COMPLETE OBSTRUCTION Complications: none Surgeon: Bertha Currie Estimated blood loss (cc): 50 Specimens Removed/Pathology: none sent Condition: stable Disposition: PACU
--- NOTE | 2018-12-06 12:19 | XRay Report ---
INDICATION: Central line placement TECHNIQUE: AP chest x-ray,portable COMPARISON: Most recent previous chest x-ray dated 10/09/2018 FINDINGS:Right central venous catheter with its tip in the superior vena cava. No pneumothorax. No change in small caliber left central venous catheter and infusion port. There is an esophagogastric tube with its tip in the gastric antrum. Mildly elevated right hemidiaphragm. Mild linear densities in both lungs consistent with subsegmental atelectasis. No parenchymal consolidation IMPRESSION: 1. Right central venous catheter with its tip in superior vena cava 2. No pneumothorax Interpreted and Authenticated by: All Cormier 12/06/18
[2018-12-06] MEDS: 0.9 % SODIUM CHLORIDE 1,000 ML IV SCH ×3 (12:46→22:05)
[2018-12-06] MEDS: methylPREDNISolone SOD SUCC 125 MG/2 ML VIAL IV SCH ×2 (13:30→20:12)
[2018-12-06] MEDS ORDERED: BENZOCAINE 1 SPRAY BOTTLE TOPICAL PRN (13:35)
[2018-12-06] MEDS ORDERED: TPN PER PHARMACY IV SCH (13:35)
[2018-12-06] MEDS ORDERED: PROMETHAZINE 25 MG SUPP.RECT PR PRN (13:35)
[2018-12-06] MEDS ORDERED: CALCIUM GLUCONATE IV SCH (15:00)
[2018-12-06] MEDS ORDERED: [UNRECOGNIZED DRUG - OTHER] IV SCH (15:00)
[2018-12-06] MEDS ORDERED: MAGNESIUM SULFATE IV SCH (15:00)
[2018-12-06] MEDS ORDERED: SODIUM CHLORIDE IV SCH (15:00)
[2018-12-06] MEDS: FAT EMULSION 20% 250 ML IV SCH (15:16)
[2018-12-06] MEDS ORDERED: FAT EMULSION 20% 250 ML in PREMIX 1 BAG IV SCH (16:00)
[2018-12-06] MEDS: MUPIROCIN OINT 2% 22GM TOPICAL SCH ×2 (16:06→20:53)
[2018-12-06] MEDS ORDERED: 0.9 % SODIUM CHLORIDE 10 ML SYRINGE IV SCH (21:00)
[2018-12-07] MEDS: HYDROmorphone 2 MG/ML VIAL IV PRN ×11 (00:05→22:30)
[2018-12-07] MEDS: PIPERACILLIN SODIUM/TAZOBACTAM 3.375 GM in DEXTROSE 5% IN WATER 50 ML IV SCH ×5 (00:06→23:30)
[2018-12-07] MEDS: PROMETHAZINE 25 MG/ML VIAL IV PRN (04:15)
[2018-12-07] MEDS: 0.9 % SODIUM CHLORIDE 1,000 ML IV SCH ×4 (05:21→20:22)
[2018-12-07] MEDS: PANTOPRAZOLE 40 MG VIAL IV SCH ×2 (07:43→16:34)
[2018-12-07] MEDS: LEVOTHYROXINE 100 MCG VIAL IV SCH (07:43)
[2018-12-07] MEDS: methylPREDNISolone SOD SUCC 125 MG/2 ML VIAL IV SCH ×2 (08:52→20:23)
[2018-12-07] MEDS: MUPIROCIN OINT 2% 22GM TOPICAL SCH ×2 (08:52→20:22)
[2018-12-07] MEDS: ACETAMINOPHEN 1,000 MG/100 ML BOTTLE IV PRN ×2 (08:54→15:03)
[2018-12-07 09:07] LABS: ALT/SGPT 8 U/l (0-40); Albumin 2.4 gm/dL (3.2-5.2); Albumin/Globulin Ratio 1.1 (1.0-2.3); Alkaline Phosphatase 42 U/L (39-117); Bilirubin,Direct < 0.2 mg/dL (0.0-0.3); Blood Urea Nitrogen 6 mg/dl (6-20); Gamma Glutamyl Transpeptidase 7 U/L (5-36); Uric Acid 2.1 mg/dL (2.5-8.0)
[2018-12-07] MEDS: BENZOCAINE/MENTHOL 1 LOZENGE PO PRN (11:40)
[2018-12-07] MEDS ORDERED: MAGNESIUM SULFATE IV SCH (15:00)
[2018-12-07] MEDS ORDERED: CALCIUM GLUCONATE IV SCH (15:00)
[2018-12-07] MEDS ORDERED: [UNRECOGNIZED DRUG - OTHER] IV SCH (15:00)
[2018-12-07] MEDS ORDERED: SODIUM CHLORIDE IV SCH (15:00)
[2018-12-07] MEDS ORDERED: DEXTROSE 50% 50 ML VIAL IV PRN (16:24)
[2018-12-07] MEDS ORDERED: DEXTROSE 31 GM ORAL.SUSP PO PRN (16:24)
--- NOTE | 2018-12-07 16:42 | General Surgery Progress Note ---
Subjective Patient reports: still having pain, flatus, afebrile Narrative: Note initiated : 12/07/18 at 4:38 pm Service Date, if different from initiated Date: [] Patient: Dayanna Stephens 57 y/o F admitted on 11/28/18 for Abdominal Pain. Chief Complaint: [patient is clinically stable. Vital signs stable with heart rate less than 100 and stable blood pressure crampy abdominal pain is much less. She does have small amount of gas through her stoma with a few cc of fecal drainage. No complaint of shortness of breath or chest pain. White blood count 6.5 and hemoglobin 9.4] Objective Temp Pulse Resp BP Pulse Ox 98.9 F 90 14 136/84 92 12/07/18 15:11 12/07/18 15:11 12/07/18 15:11 12/07/18 15:11 12/07/18 15:11 - Additional Data Intake & Output - Last 24 hours: Intake & Output 12/05/18 12/06/18 12/07/18 12/08/18 05:59 05:59 05:59 05:59 Intake Total 5800 2355 5850 1100 Output Total 1850 5050 3000 1200 Balance 3950 -2695 2850 -100 Weight 264 lb 255 lb 258 lb - General physical appearance moderate distress, moderate pain, chronically ill - Eyes PERRL, normal ocular movement - ENT normal pinna, normal nares, normal mucosa, no hearing loss, no congestion - Neck no masses, no bruits, trachea midline, no lymphadenopathy, no venous distension - Respiratory normal expansion, normal respiratory effort, clear to auscultation - Cardiovascular Cardiovascular exam: Present: normal rate and rhythm, RRR, +S1, +S2. Absent: JVD, tachycardia - Abdomen tender (diffusely tender abdomen which is more prominent around operative sites; stoma is healthy and is working appropriately) - Integumentary no rash, no growths, no abnormal pigmentation - Neurologic normal coordination, normal sensation - Musculoskeletal normal gait, normal posture - Psychiatric oriented to time, oriented to person, oriented to place, speech is normal, memory intact - Labs 12/06/18 04:20 12/07/18 07:54 Diabetes panel 12/07/18 Range/Units 07:54 Sodium 143 (133-145) mmol/L Potassium 3.5 (3.3-5.1) mmol/L Chloride 106 (96-108) mmol/L Carbon Dioxide 30 (22-30) mmol/L BUN 6 (6-20) mg/dl Creatinine 0.7 (0.6-1.1) mg/dl Glucose 201 H (70-105) mg/dL Calcium 6.2 L (8.6-10.4) mg/dl AST 9 (0-37) U/l ALT 8 (0-40) U/l Alkaline Phosphatase 42 (39-117) U/L Total Protein 4.5 L (5.9-8.4) gm/dL Albumin 2.4 L (3.2-5.2) gm/dL Triglycerides 99 (<150) mg/dl Calcium panel 12/07/18 Range/Units 07:54 Calcium 6.2 L (8.6-10.4) mg/dl Phosphorus 3.7 (2.7-4.5) mg/dL Albumin 2.4 L (3.2-5.2) gm/dL Pituitary panel 12/07/18 Range/Units 07:54 Sodium 143 (133-145) mmol/L Potassium 3.5 (3.3-5.1) mmol/L Chloride 106 (96-108) mmol/L Carbon Dioxide 30 (22-30) mmol/L BUN 6 (6-20) mg/dl Creatinine 0.7 (0.6-1.1) mg/dl Glucose 201 H (70-105) mg/dL Calcium 6.2 L (8.6-10.4) mg/dl Adrenal panel 12/07/18 Range/Units 07:54 Sodium 143 (133-145) mmol/L Potassium 3.5 (3.3-5.1) mmol/L Chloride 106 (96-108) mmol/L Carbon Dioxide 30 (22-30) mmol/L BUN 6 (6-20) mg/dl Creatinine 0.7 (0.6-1.1) mg/dl Glucose 201 H (70-105) mg/dL Calcium 6.2 L (8.6-10.4) mg/dl Total Bilirubin < 0.2 (0.0-1.0) mg/dL AST 9 (0-37) U/l ALT 8 (0-40) U/l Alkaline Phosphatase 42 (39-117) U/L Total Protein 4.5 L (5.9-8.4) gm/dL Albumin 2.4 L (3.2-5.2) gm/dL Assessment and Plan (1) Chronic intestinal pseudo-obstruction Status: Acute Assessment and plan: Continue IV fluids and TPN Continue antibiotic therapy Encouraged patient to be out of bed and ambulate Current Visit: Yes (2) Myasthenia gravis Status: Acute Current Visit: No - Time Spent With Patient Total time spent is greater than 50% in coordination of care (as documented) at patient's floor/unit and/or counseling patient:
[2018-12-07] MEDS ORDERED: INSULIN LISPRO 1 UNIT/0.01 ML UNIT SQ ONE (17:38)
[2018-12-07] MEDS: INSULIN LISPRO 1 UNIT/0.01 ML UNIT SQ SCH ×2 (17:46→23:34)
[2018-12-08] MEDS: HYDROmorphone 2 MG/ML VIAL IV PRN ×10 (00:32→23:59)
[2018-12-08] MEDS: 0.9 % SODIUM CHLORIDE 1,000 ML IV SCH ×2 (04:41→16:19)
[2018-12-08] MEDS: PIPERACILLIN SODIUM/TAZOBACTAM 3.375 GM in DEXTROSE 5% IN WATER 50 ML IV SCH ×4 (04:50→23:37)
[2018-12-08] MEDS: INSULIN LISPRO 1 UNIT/0.01 ML UNIT SQ SCH ×4 (04:51→23:47)
[2018-12-08 05:46] LABS: Basophils # (Auto) 0 K/mcL (0.0-0.3); Basophils % (Auto) 0 % (0.0-2.0); Eosinophils # (Auto) 0 K/mcL (0.0-0.7); Eosinophils % (Auto) 0 % (0.0-7.0); Granulocytes % (Auto) 86.7 % (38.0-78.0); Lymphocytes # (Auto) 0.7 K/mcL (1.5-4.8); Mean Cell Volume 79.3 fL (80.0-100.0); Mean Corpuscular HGB Conc 30.5 g/dL (31.0-36.0); Monocytes # (Auto) 0.4 K/mcL (0.1-0.9); Monocytes % (Auto) 5.3 % (1.0-12.0); Platelet Count 309 K/mcL (140-440); RBC 3.08 M/mcL (4.00-5.20); Red Cell Distribution Width 17.2 % (11.5-14.5)
[2018-12-08 06:09] LABS: ALT/SGPT 8 U/l (0-40); Albumin 2.3 gm/dL (3.2-5.2); Albumin/Globulin Ratio 0.9 (1.0-2.3); Alkaline Phosphatase 43 U/L (39-117); Bilirubin,Direct < 0.2 mg/dL (0.0-0.3); Blood Urea Nitrogen 8 mg/dl (6-20); Gamma Glutamyl Transpeptidase 7 U/L (5-36); Uric Acid 1.6 mg/dL (2.5-8.0)
[2018-12-08] MEDS: LEVOTHYROXINE 100 MCG VIAL IV SCH (08:06)
[2018-12-08] MEDS: PANTOPRAZOLE 40 MG VIAL IV SCH ×2 (08:06→16:19)
[2018-12-08] MEDS: MUPIROCIN OINT 2% 22GM TOPICAL SCH ×2 (08:19→21:21)
[2018-12-08] MEDS: methylPREDNISolone SOD SUCC 125 MG/2 ML VIAL IV SCH (08:25)
[2018-12-08] MEDS ORDERED: MAGNESIUM SULFATE IV SCH (15:00)
[2018-12-08] MEDS ORDERED: SODIUM CHLORIDE IV SCH (15:00)
[2018-12-08] MEDS ORDERED: CALCIUM GLUCONATE IV SCH (15:00)
[2018-12-08] MEDS ORDERED: [UNRECOGNIZED DRUG - OTHER] IV SCH (15:00)
--- NOTE | 2018-12-08 16:07 | General Surgery Progress Note ---
Subjective Patient reports: feels better, pain is less, flatus, bowel movement, afebrile Narrative: Note initiated : 12/08/18 at 4:05 pm Service Date, if different from initiated Date: [] Patient: Dayanna Stephens 57 y/o F admitted on 11/28/18 for Abdominal Pain. Chief Complaint: [patient is doing well. She has had more gas output through her stoma and she is having liquid stool. She denies nausea she denies crampy abdominal pain. She is afebrile. White blood count 8.2, hemoglobin 7.4.] Objective Temp Pulse Resp BP Pulse Ox 97.8 F 81 16 126/87 94 12/08/18 15:48 12/08/18 15:48 12/08/18 15:48 12/08/18 15:48 12/08/18 15:48 - Additional Data Intake & Output - Last 24 hours: Intake & Output 12/06/18 12/07/18 12/08/18 12/09/18 05:59 05:59 05:59 05:59 Intake Total 2355 5850 3569 1200 Output Total 5050 3000 4750 1000 Balance -2695 2850 -1181 200 Weight 255 lb 258 lb 247 lb 8 oz - General physical appearance well developed, well nourished, moderate distress, moderate pain, chronically ill - Eyes PERRL, normal ocular movement - ENT normal pinna, normal nares, normal mucosa, no hearing loss, no congestion - Neck no masses, no bruits, trachea midline, no lymphadenopathy, no venous distension - Respiratory normal expansion, normal respiratory effort, clear to auscultation - Cardiovascular Cardiovascular exam: Present: normal rate and rhythm, RRR, +S1, +S2. Absent: JVD, tachycardia - Abdomen tender, bowel sounds (present), surgical scars (none), masses (none) - Integumentary no rash, no growths, no abnormal pigmentation - Neurologic normal coordination, normal sensation - Musculoskeletal normal gait, normal posture - Psychiatric oriented to time, oriented to person, oriented to place, speech is normal, memory intact - Labs 12/08/18 04:00 12/08/18 04:00 Diabetes panel 12/08/18 Range/Units 04:00 Sodium 144 (133-145) mmol/L Potassium 3.7 (3.3-5.1) mmol/L Chloride 105 (96-108) mmol/L Carbon Dioxide 30 (22-30) mmol/L BUN 8 (6-20) mg/dl Creatinine 0.6 (0.6-1.1) mg/dl Glucose 243 H (70-105) mg/dL Calcium 6.7 L (8.6-10.4) mg/dl AST 8 (0-37) U/l ALT 8 (0-40) U/l Alkaline Phosphatase 43 (39-117) U/L Total Protein 4.9 L (5.9-8.4) gm/dL Albumin 2.3 L (3.2-5.2) gm/dL Triglycerides 102 (<150) mg/dl Calcium panel 12/08/18 Range/Units 04:00 Calcium 6.7 L (8.6-10.4) mg/dl Phosphorus 2.9 (2.7-4.5) mg/dL Albumin 2.3 L (3.2-5.2) gm/dL Pituitary panel 12/08/18 Range/Units 04:00 Sodium 144 (133-145) mmol/L Potassium 3.7 (3.3-5.1) mmol/L Chloride 105 (96-108) mmol/L Carbon Dioxide 30 (22-30) mmol/L BUN 8 (6-20) mg/dl Creatinine 0.6 (0.6-1.1) mg/dl Glucose 243 H (70-105) mg/dL Calcium 6.7 L (8.6-10.4) mg/dl Adrenal panel 12/08/18 Range/Units 04:00 Sodium 144 (133-145) mmol/L Potassium 3.7 (3.3-5.1) mmol/L Chloride 105 (96-108) mmol/L Carbon Dioxide 30 (22-30) mmol/L BUN 8 (6-20) mg/dl Creatinine 0.6 (0.6-1.1) mg/dl Glucose 243 H (70-105) mg/dL Calcium 6.7 L (8.6-10.4) mg/dl Total Bilirubin < 0.2 (0.0-1.0) mg/dL AST 8 (0-37) U/l ALT 8 (0-40) U/l Alkaline Phosphatase 43 (39-117) U/L Total Protein 4.9 L (5.9-8.4) gm/dL Albumin 2.3 L (3.2-5.2) gm/dL Assessment and Plan (1) Chronic intestinal pseudo-obstruction Status: Acute Assessment and plan: Continue IV fluids and TPN Continue antibiotic therapy Encouraged patient to be out of bed and ambulateLay letter Transfuse 2 units packed red cells Clamp nasogastric tube Abdominal x-rays in the morning Current Visit: Yes (2) Myasthenia gravis Status: Acute Current Visit: No - Time Spent With Patient Total time spent is greater than 50% in coordination of care (as documented) at patient's floor/unit and/or counseling patient:
[2018-12-08] MEDS: ERYTHROMYCIN BASE 250 MG TABLET PO SCH ×2 (18:14→23:38)
[2018-12-08] MEDS: PYRIDOSTIGMINE 60 MG TABLET PO SCH (21:17)
[2018-12-08] MEDS: DULoxetine 30 MG CAPSULE PO SCH (21:17)
[2018-12-08] MEDS: MAGNESIUM OXIDE 400 MG TABLET PO SCH (21:18)
[2018-12-08] MEDS: LISINOPRIL 20 MG TABLET PO SCH (21:18)
[2018-12-09] MEDS: 0.9 % SODIUM CHLORIDE 1,000 ML IV SCH ×3 (02:30→15:40)
[2018-12-09] MEDS: HYDROmorphone 2 MG/ML VIAL IV PRN ×10 (02:35→22:17)
[2018-12-09 05:41] LABS: Basophils # (Auto) 0 K/mcL (0.0-0.3); Basophils % (Auto) 0.3 % (0.0-2.0); Eosinophils # (Auto) 0.1 K/mcL (0.0-0.7); Eosinophils % (Auto) 0.8 % (0.0-7.0); Granulocytes % (Auto) 61.4 % (38.0-78.0); Lymphocytes # (Auto) 2.3 K/mcL (1.5-4.8); Lymphocytes % (Auto) 25.9 % (15.5-49.0); Mean Cell Volume 78.4 fL (80.0-100.0); Mean Corpuscular HGB Conc 30.2 g/dL (31.0-36.0); Monocytes % (Auto) 11.6 % (1.0-12.0); Platelet Count 348 K/mcL (140-440); RBC 3.07 M/mcL (4.00-5.20); Red Cell Distribution Width 16.7 % (11.5-14.5)
[2018-12-09] MEDS: ERYTHROMYCIN BASE 250 MG TABLET PO SCH ×3 (05:58→17:57)
[2018-12-09] MEDS: PIPERACILLIN SODIUM/TAZOBACTAM 3.375 GM in DEXTROSE 5% IN WATER 50 ML IV SCH ×3 (05:58→17:57)
[2018-12-09] MEDS: INSULIN LISPRO 1 UNIT/0.01 ML UNIT SQ SCH ×3 (06:06→18:20)
[2018-12-09 06:11] LABS: ALT/SGPT 7 U/l (0-40); Albumin 2.7 gm/dL (3.2-5.2); Albumin/Globulin Ratio 1.1 (1.0-2.3); Alkaline Phosphatase 45 U/L (39-117); Bilirubin,Direct < 0.2 mg/dL (0.0-0.3); Blood Urea Nitrogen 11 mg/dl (6-20); Gamma Glutamyl Transpeptidase 9 U/L (5-36); Uric Acid 1.3 mg/dL (2.5-8.0)
[2018-12-09] MEDS ORDERED: LEVOTHYROXINE 125 MCG TABLET PO SCH (07:30)
[2018-12-09] MEDS: PANTOPRAZOLE 40 MG VIAL IV SCH ×2 (07:47→16:54)
[2018-12-09] MEDS: LEVOTHYROXINE 100 MCG VIAL IV SCH (07:52)
[2018-12-09] MEDS ORDERED: 0.9 % SODIUM CHLORIDE 250 ML IV SCH (08:30)
[2018-12-09] MEDS: metFORMIN 500 MG TABLET PO SCH (08:55)
[2018-12-09] MEDS: DULoxetine 30 MG CAPSULE PO SCH ×2 (08:55→22:05)
[2018-12-09] MEDS: predniSONE 20 MG TABLET PO SCH (08:55)
[2018-12-09] MEDS: MUPIROCIN OINT 2% 22GM TOPICAL SCH ×2 (08:56→22:05)
[2018-12-09] MEDS: PYRIDOSTIGMINE 60 MG TABLET PO SCH ×3 (08:56→22:05)
[2018-12-09] MEDS: MAGNESIUM OXIDE 400 MG TABLET PO SCH ×3 (08:56→22:05)
[2018-12-09] MEDS: LISINOPRIL 20 MG TABLET PO SCH ×2 (09:12→22:05)
--- NOTE | 2018-12-09 09:18 | XRay Report ---
HISTORY: Abdominal pain follow-up small bowel obstruction FINDINGS: There is nasogastric tube with the tip in the proximal duodenum. There is an air-fluid level within nondistended stomach. Small air-fluid levels are also seen in a few loops of large and small intestine. Large and small bowel are nondilated. No free intra-abdominal air is present. There is a large drainage tube in the mid abdomen and pelvis. This may been inserted through the ostomy. The tip of the catheter is in the lateral left mid abdomen. Comparison with the prior x-ray done on 12/05/18 shows resolution of previously seen bowel obstruction. There are persistent bands of discoid atelectasis in the right lung base adjacent to the elevated diaphragm. IMPRESSION: Resolved bowel obstruction Interpreted and Authenticated by: Zay Juarez 12/09/18
[2018-12-09] MEDS ORDERED: ALTEPLASE 2 MG VIAL IV ONE (12:16)
--- NOTE | 2018-12-09 13:04 | General Surgery Progress Note ---
Subjective Patient reports: feels better, still having pain, pain is less, flatus, bowel movement, nausea, afebrile Narrative: Note initiated : 12/09/18 at 1:02 pm Service Date, if different from initiated Date: [] Patient: Dayanna Stephens 57 y/o F admitted on 11/28/18 for Abdominal Pain. Chief Complaint: [patient continues to feel well. She had more liquid and gas through her stoma. Nasogastric tube has been clamped and she denies nausea. White blood count 8.8, hemoglobin 7.3, magnesium 1.5, potassium 3.4. X-ray shows significant decrease in small bowel gas with gas in her colon.] Objective Temp Pulse Resp BP Pulse Ox 99.2 F H 83 16 168/82 96 12/09/18 11:56 12/09/18 11:56 12/09/18 11:56 12/09/18 11:56 12/09/18 11:56 - Additional Data Intake & Output - Last 24 hours: Intake & Output 12/07/18 12/08/18 12/09/18 12/10/18 05:59 05:59 05:59 05:59 Intake Total 5850 3569 2750 1183 Output Total 3000 4750 4375 1175 Balance 2850 -1181 -1625 8 Weight 258 lb 247 lb 8 oz 262 lb 8 oz - General physical appearance no distress, moderate pain, chronically ill - Eyes PERRL, normal ocular movement - ENT normal pinna, normal nares, normal mucosa, no hearing loss, no congestion - Neck no masses, no bruits, trachea midline, no lymphadenopathy, no venous distension - Respiratory normal expansion, normal respiratory effort, clear to auscultation - Cardiovascular Cardiovascular exam: Present: normal rate and rhythm, RRR, +S1, +S2. Absent: JVD, tachycardia - Abdomen bowel sounds (present), surgical scars (none), masses (none) - Integumentary no rash ( is still Q), no growths, no abnormal pigmentation - Neurologic normal coordination, normal sensation - Musculoskeletal normal gait ( baby), normal posture - Psychiatric oriented to time ( ), oriented to person, oriented to place, speech is normal, memory intact - Labs 12/09/18 04:25 12/09/18 04:26 Diabetes panel 12/09/18 Range/Units 04:26 Sodium 144 (133-145) mmol/L Potassium 3.4 (3.3-5.1) mmol/L Chloride 104 (96-108) mmol/L Carbon Dioxide 32 H (22-30) mmol/L BUN 11 (6-20) mg/dl Creatinine 0.6 (0.6-1.1) mg/dl Glucose 156 H (70-105) mg/dL Calcium 6.7 L (8.6-10.4) mg/dl AST 7 (0-37) U/l ALT 7 (0-40) U/l Alkaline Phosphatase 45 (39-117) U/L Total Protein 5.2 L (5.9-8.4) gm/dL Albumin 2.7 L (3.2-5.2) gm/dL Triglycerides 142 (<150) mg/dl Calcium panel 12/09/18 Range/Units 04:26 Calcium 6.7 L (8.6-10.4) mg/dl Phosphorus 2.9 (2.7-4.5) mg/dL Albumin 2.7 L (3.2-5.2) gm/dL Pituitary panel 12/09/18 Range/Units 04:26 Sodium 144 (133-145) mmol/L Potassium 3.4 (3.3-5.1) mmol/L Chloride 104 (96-108) mmol/L Carbon Dioxide 32 H (22-30) mmol/L BUN 11 (6-20) mg/dl Creatinine 0.6 (0.6-1.1) mg/dl Glucose 156 H (70-105) mg/dL Calcium 6.7 L (8.6-10.4) mg/dl Adrenal panel 12/09/18 Range/Units 04:26 Sodium 144 (133-145) mmol/L Potassium 3.4 (3.3-5.1) mmol/L Chloride 104 (96-108) mmol/L Carbon Dioxide 32 H (22-30) mmol/L BUN 11 (6-20) mg/dl Creatinine 0.6 (0.6-1.1) mg/dl Glucose 156 H (70-105) mg/dL Calcium 6.7 L (8.6-10.4) mg/dl Total Bilirubin < 0.2 (0.0-1.0) mg/dL AST 7 (0-37) U/l ALT 7 (0-40) U/l Alkaline Phosphatase 45 (39-117) U/L Total Protein 5.2 L (5.9-8.4) gm/dL Albumin 2.7 L (3.2-5.2) gm/dL 1900 Assessment and Plan (1) Chronic intestinal pseudo-obstruction Status: Acute Assessment and plan: Continue IV fluids and TPN Continue antibiotic therapy Encouraged patient to be out of bed and ambulateLay Transfuse 2 units packed red cells Discontinue nasogastric tube Start clear liquid diet Current Visit: Yes (2) Myasthenia gravis Status: Acute Current Visit: No - Time Spent With Patient Total time spent is greater than 50% in coordination of care (as documented) at patient's floor/unit and/or counseling patient:
[2018-12-09] MEDS ORDERED: POTASSIUM CHLORIDE IV SCH (15:00)
[2018-12-09] MEDS ORDERED: MVI IV SCH (15:00)
[2018-12-09] MEDS ORDERED: CALCIUM GLUCONATE IV SCH (15:00)
[2018-12-09] MEDS ORDERED: MAGNESIUM SULFATE IV SCH (15:00)
[2018-12-09] MEDS ORDERED: [UNRECOGNIZED DRUG - OTHER] IV SCH (15:00)
[2018-12-09] MEDS: FAT EMULSION 20% 250 ML IV SCH (15:40)
[2018-12-10] MEDS: HYDROmorphone 2 MG/ML VIAL IV PRN ×12 (00:33→23:48)
[2018-12-10] MEDS: PIPERACILLIN SODIUM/TAZOBACTAM 3.375 GM in DEXTROSE 5% IN WATER 50 ML IV SCH ×5 (00:36→23:52)
[2018-12-10] MEDS: ERYTHROMYCIN BASE 250 MG TABLET PO SCH ×5 (00:37→23:49)
[2018-12-10] MEDS: INSULIN LISPRO 1 UNIT/0.01 ML UNIT SQ SCH ×5 (00:47→23:53)
[2018-12-10] MEDS: ACETAMINOPHEN 1,000 MG/100 ML BOTTLE IV PRN (02:07)
[2018-12-10 06:26] LABS: Basophils # (Auto) 0 K/mcL (0.0-0.3); Basophils % (Auto) 0.4 % (0.0-2.0); Eosinophils # (Auto) 0.2 K/mcL (0.0-0.7); Eosinophils % (Auto) 1.5 % (0.0-7.0); Granulocytes % (Auto) 69.8 % (38.0-78.0); Lymphocytes # (Auto) 2.3 K/mcL (1.5-4.8); Lymphocytes % (Auto) 20.9 % (15.5-49.0); Mean Corpuscular HGB Conc 31.5 g/dL (31.0-36.0); Monocytes # (Auto) 0.8 K/mcL (0.1-0.9); Monocytes % (Auto) 7.4 % (1.0-12.0); Platelet Count 403 K/mcL (140-440); RBC 4.07 M/mcL (4.00-5.20); Red Cell Distribution Width 17.7 % (11.5-14.5)
[2018-12-10 07:17] LABS: ALT/SGPT 19 U/l (0-40); Albumin 3.1 gm/dL (3.2-5.2); Albumin/Globulin Ratio 1.1 (1.0-2.3); Alkaline Phosphatase 63 U/L (39-117); Bilirubin,Direct < 0.2 mg/dL (0.0-0.3); Blood Urea Nitrogen 12 mg/dl (6-20); Gamma Glutamyl Transpeptidase 16 U/L (5-36); Uric Acid 1.2 mg/dL (2.5-8.0)
[2018-12-10] MEDS: LEVOTHYROXINE 100 MCG VIAL IV SCH (08:53)
[2018-12-10] MEDS: PANTOPRAZOLE 40 MG VIAL IV SCH ×2 (08:53→17:00)
[2018-12-10] MEDS: MAGNESIUM OXIDE 400 MG TABLET PO SCH ×3 (08:54→20:39)
[2018-12-10] MEDS: metFORMIN 500 MG TABLET PO SCH (08:54)
[2018-12-10] MEDS: DULoxetine 30 MG CAPSULE PO SCH ×2 (08:54→20:39)
[2018-12-10] MEDS: predniSONE 20 MG TABLET PO SCH (08:54)
[2018-12-10] MEDS: LISINOPRIL 20 MG TABLET PO SCH ×2 (08:54→20:39)
[2018-12-10] MEDS: MUPIROCIN OINT 2% 22GM TOPICAL SCH ×2 (08:59→20:40)
[2018-12-10] MEDS: PYRIDOSTIGMINE 60 MG TABLET PO SCH ×3 (09:09→20:39)
[2018-12-10] MEDS: 0.9 % SODIUM CHLORIDE 1,000 ML IV SCH (09:12)
[2018-12-10] MEDS ORDERED: [UNRECOGNIZED DRUG - OTHER] IV SCH (15:00)
[2018-12-10] MEDS ORDERED: MVI IV SCH (15:00)
[2018-12-10] MEDS ORDERED: CALCIUM GLUCONATE IV SCH (15:00)
[2018-12-10] MEDS ORDERED: POTASSIUM CHLORIDE IV SCH (15:00)
[2018-12-10] MEDS ORDERED: MAGNESIUM SULFATE IV SCH (15:00)
--- NOTE | 2018-12-10 15:25 | General Surgery Progress Note ---
Subjective Patient reports: feels better, still having pain, pain is less, tolerating liquids well, flatus, bowel movement, diarrhea, afebrile Narrative: Note initiated : 12/10/18 at 3:23 pm Service Date, if different from initiated Date: [] Patient: Dayanna Stephens 57 y/o F admitted on 11/28/18 for Abdominal Pain. Chief Complaint: [Patient continues to do well. She is tolerating liquid diet without nausea or vomiting. She has a small amount of gas and liquid stool stoma. She does not have any abdominal distention.] Objective Temp Pulse Resp BP Pulse Ox 97.7 F 75 14 136/82 97 12/10/18 11:23 12/10/18 11:23 12/10/18 11:23 12/10/18 11:23 12/10/18 11:23 - Additional Data Intake & Output - Last 24 hours: Intake & Output 12/08/18 12/09/18 12/10/18 12/11/18 05:59 05:59 05:59 05:59 Intake Total 3569 2750 4696 50 Output Total 4750 4375 6150 1850 Balance -3851 -9921 -6644 -1800 Weight 247 lb 8 oz 262 lb 8 oz 263 lb - General physical appearance well developed, well nourished, no distress - Eyes PERRL, normal ocular movement - ENT normal pinna, normal nares, normal mucosa, no hearing loss, no congestion - Neck no masses, no bruits, trachea midline, no lymphadenopathy, no venous distension - Respiratory normal expansion, normal respiratory effort, clear to auscultation - Cardiovascular Cardiovascular exam: Present: normal rate and rhythm, RRR, +S1, +S2. Absent: JVD, tachycardia - Abdomen tender (mild incisional tenderness;; good active bowel sounds; incision looks good; stoma dysfunction), bowel sounds (present), surgical scars (none), masses (none) - Integumentary no rash, no growths, no abnormal pigmentation - Neurologic normal coordination, normal sensation - Musculoskeletal normal gait, normal posture - Psychiatric oriented to time, oriented to person, oriented to place, speech is normal, memory intact - Labs 12/10/18 04:42 12/10/18 04:42 Diabetes panel 12/10/18 Range/Units 04:42 Sodium 143 (133-145) mmol/L Potassium 4.0 (3.3-5.1) mmol/L Chloride 101 (96-108) mmol/L Carbon Dioxide 34 H (22-30) mmol/L BUN 12 (6-20) mg/dl Creatinine 0.6 (0.6-1.1) mg/dl Glucose 127 H (70-105) mg/dL Calcium 7.3 L (8.6-10.4) mg/dl AST 20 (0-37) U/l ALT 19 (0-40) U/l Alkaline Phosphatase 63 (39-117) U/L Total Protein 6.0 (5.9-8.4) gm/dL Albumin 3.1 L (3.2-5.2) gm/dL Triglycerides 207 H (<150) mg/dl Calcium panel 12/10/18 Range/Units 04:42 Calcium 7.3 L (8.6-10.4) mg/dl Phosphorus 3.7 (2.7-4.5) mg/dL Albumin 3.1 L (3.2-5.2) gm/dL Pituitary panel 12/10/18 Range/Units 04:42 Sodium 143 (133-145) mmol/L Potassium 4.0 (3.3-5.1) mmol/L Chloride 101 (96-108) mmol/L Carbon Dioxide 34 H (22-30) mmol/L BUN 12 (6-20) mg/dl Creatinine 0.6 (0.6-1.1) mg/dl Glucose 127 H (70-105) mg/dL Calcium 7.3 L (8.6-10.4) mg/dl Adrenal panel 12/10/18 Range/Units 04:42 Sodium 143 (133-145) mmol/L Potassium 4.0 (3.3-5.1) mmol/L Chloride 101 (96-108) mmol/L Carbon Dioxide 34 H (22-30) mmol/L BUN 12 (6-20) mg/dl Creatinine 0.6 (0.6-1.1) mg/dl Glucose 127 H (70-105) mg/dL Calcium 7.3 L (8.6-10.4) mg/dl Total Bilirubin 0.2 (0.0-1.0) mg/dL AST 20 (0-37) U/l ALT 19 (0-40) U/l Alkaline Phosphatase 63 (39-117) U/L Total Protein 6.0 (5.9-8.4) gm/dL Albumin 3.1 L (3.2-5.2) gm/dL Assessment and Plan (1) Chronic intestinal pseudo-obstruction Status: Acute Assessment and plan: Continue IV fluids and TPN Continue antibiotic therapy Encouraged patient to be out of bed and ambulateLay Liquid diet Follow-up abdominal x-rays in the morning Current Visit: Yes (2) Myasthenia gravis Status: Acute Current Visit: No - Time Spent With Patient Total time spent is greater than 50% in coordination of care (as documented) at patient's floor/unit and/or counseling patient:
[2018-12-11] MEDS: HYDROmorphone 2 MG/ML VIAL IV PRN ×11 (01:54→23:45)
[2018-12-11 06:05] LABS: Basophils # (Auto) 0 K/mcL (0.0-0.3); Basophils % (Auto) 0.3 % (0.0-2.0); Eosinophils # (Auto) 0.4 K/mcL (0.0-0.7); Eosinophils % (Auto) 3.5 % (0.0-7.0); Granulocytes % (Auto) 66.1 % (38.0-78.0); Lymphocytes # (Auto) 2.5 K/mcL (1.5-4.8); Lymphocytes % (Auto) 22.2 % (15.5-49.0); Mean Cell Volume 80.8 fL (80.0-100.0); Mean Corpuscular HGB Conc 31.3 g/dL (31.0-36.0); Monocytes # (Auto) 0.9 K/mcL (0.1-0.9); Monocytes % (Auto) 7.9 % (1.0-12.0); Platelet Count 454 K/mcL (140-440); RBC 4.16 M/mcL (4.00-5.20); Red Cell Distribution Width 17.9 % (11.5-14.5)
[2018-12-11] MEDS: ERYTHROMYCIN BASE 250 MG TABLET PO SCH ×3 (06:16→17:06)
[2018-12-11] MEDS: PIPERACILLIN SODIUM/TAZOBACTAM 3.375 GM in DEXTROSE 5% IN WATER 50 ML IV SCH ×3 (06:16→17:01)
[2018-12-11 06:23] LABS: ALT/SGPT 23 U/l (0-40); Albumin 3.1 gm/dL (3.2-5.2); Albumin/Globulin Ratio 1.1 (1.0-2.3); Alkaline Phosphatase 66 U/L (39-117); Bilirubin,Direct < 0.2 mg/dL (0.0-0.3); Blood Urea Nitrogen 12 mg/dl (6-20); Gamma Glutamyl Transpeptidase 19 U/L (5-36)
[2018-12-11] MEDS: INSULIN LISPRO 1 UNIT/0.01 ML UNIT SQ SCH ×3 (07:06→17:06)
[2018-12-11] MEDS: PANTOPRAZOLE 40 MG VIAL IV SCH ×2 (08:33→17:01)
[2018-12-11] MEDS: LEVOTHYROXINE 100 MCG VIAL IV SCH (08:33)
[2018-12-11] MEDS: metFORMIN 500 MG TABLET PO SCH (08:33)
[2018-12-11] MEDS: MAGNESIUM OXIDE 400 MG TABLET PO SCH ×3 (08:34→21:06)
[2018-12-11] MEDS: LISINOPRIL 20 MG TABLET PO SCH ×2 (08:34→21:06)
[2018-12-11] MEDS: predniSONE 20 MG TABLET PO SCH (08:34)
[2018-12-11] MEDS: DULoxetine 30 MG CAPSULE PO SCH ×2 (08:34→21:06)
[2018-12-11] MEDS: MUPIROCIN OINT 2% 22GM TOPICAL SCH ×2 (08:35→21:06)
[2018-12-11] MEDS: PYRIDOSTIGMINE 60 MG TABLET PO SCH ×3 (10:27→21:06)
[2018-12-11] MEDS: 0.9 % SODIUM CHLORIDE 1,000 ML IV SCH (10:28)
[2018-12-11] MEDS: MAGNESIUM HYDROXIDE 30 ML ORAL.SUSP PO SCH ×3 (12:29→21:06)
--- NOTE | 2018-12-11 12:36 | XRay Report ---
CLINICAL INFORMATION: FOLLOW -UP OF SMALL BOWEL OBSTRUCTION COMPARISON: 12/09/2018 FINDINGS: NG tube has been removed. There are scattered air-fluid levels in the nondilated stomach and proximal small bowel compatible with postoperative ileus. Is unchanged. A drain overlies the central abdomen remains in stable position. No free fluid. IMPRESSION: Scattered air-fluid levels in the non dilated stomach and small bowel most compatible with postoperative ileus Interpreted and Authenticated by: All Lundberg 12/11/18
[2018-12-11] MEDS ORDERED: POTASSIUM CHLORIDE IV SCH (15:00)
[2018-12-11] MEDS ORDERED: MVI IV SCH (15:00)
[2018-12-11] MEDS ORDERED: [UNRECOGNIZED DRUG - OTHER] IV SCH (15:00)
[2018-12-11] MEDS ORDERED: CALCIUM GLUCONATE IV SCH (15:00)
[2018-12-11] MEDS ORDERED: MAGNESIUM SULFATE IV SCH (15:00)
--- NOTE | 2018-12-11 15:11 | General Surgery Progress Note ---
Subjective Patient reports: still having pain, pain is less, tolerating liquids well, flatus, bowel movement, diarrhea, afebrile Narrative: Note initiated : 12/11/18 at 3:08 pm Service Date, if different from initiated Date: [] Patient: Dayanna Stephens 57 y/o F admitted on 11/28/18 for Abdominal Pain. Chief Complaint: [patient continues to have some flatus and very small amount output via her stoma. Her visceral pain is resolved but she has incisional pain.] Objective Temp Pulse Resp BP Pulse Ox 98.3 F 85 16 151/81 97 12/11/18 12:00 12/11/18 12:00 12/11/18 08:00 12/11/18 12:00 12/11/18 12:00 - Additional Data Intake & Output - Last 24 hours: Intake & Output 12/09/18 12/10/18 12/11/18 12/12/18 05:59 05:59 05:59 05:59 Intake Total 2750 4796 2250 100 Output Total 4375 6145 4875 950 Balance -1625 -1354 -2625 -850 Weight 262 lb 8 oz 263 lb 259 lb - General physical appearance well developed, well nourished, moderate distress, moderate pain - Eyes PERRL, normal ocular movement - ENT normal pinna, normal nares, normal mucosa, no hearing loss, no congestion - Neck no masses, no bruits, trachea midline, no lymphadenopathy, no venous distension - Respiratory normal expansion, normal respiratory effort, clear to auscultation - Cardiovascular Cardiovascular exam: Present: normal rate and rhythm, RRR, +S1, +S2. Absent: JVD, tachycardia - Abdomen tender (mild distention with active bowel sounds; incision looks good) - Integumentary no rash, no growths, no abnormal pigmentation - Neurologic normal coordination, normal sensation - Musculoskeletal normal gait, normal posture - Psychiatric oriented to time, oriented to person, oriented to place, speech is normal, memory intact - Labs 12/11/18 04:23 12/11/18 04:23 Diabetes panel 12/11/18 Range/Units 04:23 Sodium 140 (133-145) mmol/L Potassium 4.0 (3.3-5.1) mmol/L Chloride 97 (96-108) mmol/L Carbon Dioxide 35 H (22-30) mmol/L BUN 12 (6-20) mg/dl Creatinine 0.6 (0.6-1.1) mg/dl Glucose 142 H (70-105) mg/dL Calcium 7.3 L (8.6-10.4) mg/dl AST 25 (0-37) U/l ALT 23 (0-40) U/l Alkaline Phosphatase 66 (39-117) U/L Total Protein 6.0 (5.9-8.4) gm/dL Albumin 3.1 L (3.2-5.2) gm/dL Triglycerides 350 H (<150) mg/dl Calcium panel 12/11/18 Range/Units 04:23 Calcium 7.3 L (8.6-10.4) mg/dl Phosphorus 3.5 (2.7-4.5) mg/dL Albumin 3.1 L (3.2-5.2) gm/dL Pituitary panel 12/11/18 Range/Units 04:23 Sodium 140 (133-145) mmol/L Potassium 4.0 (3.3-5.1) mmol/L Chloride 97 (96-108) mmol/L Carbon Dioxide 35 H (22-30) mmol/L BUN 12 (6-20) mg/dl Creatinine 0.6 (0.6-1.1) mg/dl Glucose 142 H (70-105) mg/dL Calcium 7.3 L (8.6-10.4) mg/dl Adrenal panel 12/11/18 Range/Units 04:23 Sodium 140 (133-145) mmol/L Potassium 4.0 (3.3-5.1) mmol/L Chloride 97 (96-108) mmol/L Carbon Dioxide 35 H (22-30) mmol/L BUN 12 (6-20) mg/dl Creatinine 0.6 (0.6-1.1) mg/dl Glucose 142 H (70-105) mg/dL Calcium 7.3 L (8.6-10.4) mg/dl Total Bilirubin 0.2 (0.0-1.0) mg/dL AST 25 (0-37) U/l ALT 23 (0-40) U/l Alkaline Phosphatase 66 (39-117) U/L Total Protein 6.0 (5.9-8.4) gm/dL Albumin 3.1 L (3.2-5.2) gm/dL Assessment and Plan (1) Chronic intestinal pseudo-obstruction Status: Acute Assessment and plan: Continue IV fluids and TPN Continue antibiotic therapy Encouraged patient to be out of bed and ambulate Liquid diet Follow-up abdominal x-rays in the morning Current Visit: Yes (2) Myasthenia gravis Status: Acute Current Visit: No - Time Spent With Patient Total time spent is greater than 50% in coordination of care (as documented) at patient's floor/unit and/or counseling patient:
[2018-12-11] MEDS: CYCLOBENZAPRINE 10 MG TABLET PO PRN (21:06)
[2018-12-12] MEDS: INSULIN LISPRO 1 UNIT/0.01 ML UNIT SQ SCH ×5 (00:15→23:20)
[2018-12-12] MEDS: ERYTHROMYCIN BASE 250 MG TABLET PO SCH ×5 (00:16→23:19)
[2018-12-12] MEDS: MAGNESIUM HYDROXIDE 30 ML ORAL.SUSP PO SCH ×3 (00:16→08:15)
[2018-12-12] MEDS: HYDROmorphone 2 MG/ML VIAL IV PRN ×8 (02:27→23:15)
[2018-12-12] MEDS: PIPERACILLIN SODIUM/TAZOBACTAM 3.375 GM in DEXTROSE 5% IN WATER 50 ML IV SCH ×3 (05:36→11:49)
[2018-12-12] MEDS: 0.9 % SODIUM CHLORIDE 1,000 ML IV SCH (05:40)
[2018-12-12 06:11] LABS: Basophils # (Auto) 0.1 K/mcL (0.0-0.3); Basophils % (Auto) 0.4 % (0.0-2.0); Eosinophils # (Auto) 0.6 K/mcL (0.0-0.7); Eosinophils % (Auto) 4.4 % (0.0-7.0); Granulocytes % (Auto) 61.5 % (38.0-78.0); Lymphocytes % (Auto) 23.2 % (15.5-49.0); Mean Cell Volume 81.3 fL (80.0-100.0); Mean Corpuscular HGB Conc 31.1 g/dL (31.0-36.0); Monocytes # (Auto) 1.3 K/mcL (0.1-0.9); Monocytes % (Auto) 10.5 % (1.0-12.0); Platelet Count 526 K/mcL (140-440); RBC 4.53 M/mcL (4.00-5.20); Red Cell Distribution Width 18.4 % (11.5-14.5)
[2018-12-12 06:31] LABS: ALT/SGPT 63 U/l (0-40); Albumin 3.5 gm/dL (3.2-5.2); Albumin/Globulin Ratio 1.1 (1.0-2.3); Alkaline Phosphatase 98 U/L (39-117); Bilirubin,Direct < 0.2 mg/dL (0.0-0.3); Blood Urea Nitrogen 14 mg/dl (6-20); Gamma Glutamyl Transpeptidase 33 U/L (5-36)
--- NOTE | 2018-12-12 06:43 | XRay Report ---
CLINICAL INFORMATION: FOR F/U OF ILEUS COMPARISON: 12/11/2018 FINDINGS: The stomach and small bowel continue to demonstrate air-fluid levels but are normal caliber. Findings both compatible with postoperative ileus. Drain is in stable position. No free air or soft tissue mass IMPRESSION: Findings most compatible with postoperative ileus - stable Interpreted and Authenticated by: All Lundberg 12/12/18
[2018-12-12] MEDS: LEVOTHYROXINE 100 MCG VIAL IV SCH (06:54)
[2018-12-12] MEDS: PANTOPRAZOLE 40 MG VIAL IV SCH ×2 (06:54→17:18)
[2018-12-12] MEDS: DULoxetine 30 MG CAPSULE PO SCH ×2 (08:15→21:08)
[2018-12-12] MEDS: LISINOPRIL 20 MG TABLET PO SCH ×2 (08:15→21:08)
[2018-12-12] MEDS: MAGNESIUM OXIDE 400 MG TABLET PO SCH ×3 (08:15→21:08)
[2018-12-12] MEDS: predniSONE 20 MG TABLET PO SCH (08:15)
[2018-12-12] MEDS: metFORMIN 500 MG TABLET PO SCH (08:15)
[2018-12-12] MEDS: PYRIDOSTIGMINE 60 MG TABLET PO SCH ×3 (08:16→21:11)
[2018-12-12] MEDS: MUPIROCIN OINT 2% 22GM TOPICAL SCH ×2 (08:16→21:08)
[2018-12-12] MEDS: PROMETHAZINE 25 MG/ML VIAL IV PRN ×3 (09:58→21:08)
[2018-12-12] MEDS: CYCLOBENZAPRINE 10 MG TABLET PO PRN ×2 (12:11→21:08)
[2018-12-12] MEDS ORDERED: CALCIUM GLUCONATE IV SCH (15:00)
[2018-12-12] MEDS ORDERED: MAGNESIUM SULFATE IV SCH (15:00)
[2018-12-12] MEDS ORDERED: MVI IV SCH (15:00)
[2018-12-12] MEDS ORDERED: [UNRECOGNIZED DRUG - OTHER] IV SCH (15:00)
[2018-12-12] MEDS ORDERED: POTASSIUM CHLORIDE IV SCH (15:00)
[2018-12-12] MEDS ORDERED: FAT EMULSION 20% 250 ML IV SCH (16:00)
--- NOTE | 2018-12-12 16:17 | General Surgery Progress Note ---
Subjective Patient reports: feels better, still having pain, tolerating liquids well, flatus, bowel movement, diarrhea, afebrile Narrative: Note initiated : 12/12/18 at 4:15 pm Service Date, if different from initiated Date: [] Patient: Dayanna Stephens 57 y/o F admitted on 11/28/18 for Abdominal Pain. Chief Complaint: [patient is doing better. She complains of nausea and states that she does not have any hunger. She has taken insulin liquids without difficulty. There has been no witnessed vomiting. Her stoma is putting out large amounts of liquid stool. Her abdomen is nondistended] Objective Temp Pulse Resp BP Pulse Ox 98.7 F 97 H 16 149/79 95 12/12/18 15:01 12/12/18 15:01 12/12/18 15:01 12/12/18 15:01 12/12/18 15:01 - Additional Data Intake & Output - Last 24 hours: Intake & Output 12/10/18 12/11/18 12/12/18 12/13/18 05:59 05:59 05:59 05:59 Intake Total 4796 2250 3960 1300 Output Total 6150 4875 7200 1400 Balance -1354 -2625 -3240 -100 Weight 263 lb 259 lb 261 lb 8 oz 261 lb 8 oz - General physical appearance well developed - Eyes PERRL, normal ocular movement - ENT normal pinna, normal nares, normal mucosa, no hearing loss, no congestion - Neck no masses, no bruits, trachea midline, no lymphadenopathy, no venous distension - Respiratory normal expansion, normal respiratory effort, clear to auscultation - Cardiovascular Cardiovascular exam: Present: normal rate and rhythm, RRR, +S1, +S2. Absent: JVD, tachycardia - Abdomen tender (mild incisional tenderness; good active bowel sounds; incision healing uneventfully; stoma is working nicely) - Integumentary no rash, no growths, no abnormal pigmentation - Neurologic normal coordination - Musculoskeletal normal gait, normal posture - Psychiatric oriented to time, oriented to person, oriented to place, speech is normal, vadim ry intact - Labs 12/12/18 04:08 12/12/18 04:08 Diabetes panel 12/12/18 Range/Units 04:08 Sodium 139 (133-145) mmol/L Potassium 4.3 (3.3-5.1) mmol/L Chloride 93 L (96-108) mmol/L Carbon Dioxide 37 H (22-30) mmol/L BUN 14 (6-20) mg/dl Creatinine 0.7 (0.6-1.1) mg/dl Glucose 142 H (70-105) mg/dL Calcium 7.6 L (8.6-10.4) mg/dl AST 42 H (0-37) U/l ALT 63 H (0-40) U/l Alkaline Phosphatase 98 (39-117) U/L Total Protein 6.7 (5.9-8.4) gm/dL Albumin 3.5 (3.2-5.2) gm/dL Triglycerides 524 H (<150) mg/dl Calcium panel 12/12/18 Range/Units 04:08 Calcium 7.6 L (8.6-10.4) mg/dl Phosphorus 3.4 (2.7-4.5) mg/dL Albumin 3.5 (3.2-5.2) gm/dL Pituitary panel 12/12/18 Range/Units 04:08 Sodium 139 (133-145) mmol/L Potassium 4.3 (3.3-5.1) mmol/L Chloride 93 L (96-108) mmol/L Carbon Dioxide 37 H (22-30) mmol/L BUN 14 (6-20) mg/dl Creatinine 0.7 (0.6-1.1) mg/dl Glucose 142 H (70-105) mg/dL Calcium 7.6 L (8.6-10.4) mg/dl Adrenal panel 12/12/18 Range/Units 04:08 Sodium 139 (133-145) mmol/L Potassium 4.3 (3.3-5.1) mmol/L Chloride 93 L (96-108) mmol/L Carbon Dioxide 37 H (22-30) mmol/L BUN 14 (6-20) mg/dl Creatinine 0.7 (0.6-1.1) mg/dl Glucose 142 H (70-105) mg/dL Calcium 7.6 L (8.6-10.4) mg/dl Total Bilirubin 0.2 (0.0-1.0) mg/dL AST 42 H (0-37) U/l ALT 63 H (0-40) U/l Alkaline Phosphatase 98 (39-117) U/L Total Protein 6.7 (5.9-8.4) gm/dL Albumin 3.5 (3.2-5.2) gm/dL Assessment and Plan (1) Chronic intestinal pseudo-obstruction Status: Acute Assessment and plan: Continue IV fluids and TPN Liquid diet Follow-up abdominal x-rays in the [facility] Increase Mestinon to 4 times daily Current Visit: Yes (2) Myasthenia gravis Status: Acute Current Visit: No - Time Spent With Patient Total time spent is greater than 50% in coordination of care (as documented) at patient's floor/unit and/or counseling patient:
[2018-12-12] MEDS: ACETAMINOPHEN 1,000 MG/100 ML BOTTLE IV PRN (21:07)
[2018-12-13] MEDS: HYDROmorphone 2 MG/ML VIAL IV PRN ×7 (01:16→22:01)
[2018-12-13] MEDS: 0.9 % SODIUM CHLORIDE 1,000 ML IV SCH ×2 (01:36→22:01)
[2018-12-13 05:34] LABS: Basophils # (Auto) 0.1 K/mcL (0.0-0.3); Basophils % (Auto) 0.4 % (0.0-2.0); Eosinophils # (Auto) 0.7 K/mcL (0.0-0.7); Eosinophils % (Auto) 5.1 % (0.0-7.0); Granulocytes % (Auto) 68.2 % (38.0-78.0); Lymphocytes # (Auto) 2.3 K/mcL (1.5-4.8); Lymphocytes % (Auto) 17.2 % (15.5-49.0); Mean Cell Volume 81.1 fL (80.0-100.0); Mean Corpuscular HGB Conc 30.9 g/dL (31.0-36.0); Monocytes # (Auto) 1.2 K/mcL (0.1-0.9); Monocytes % (Auto) 9.1 % (1.0-12.0); Platelet Count 556 K/mcL (140-440); RBC 4.62 M/mcL (4.00-5.20); Red Cell Distribution Width 19.2 % (11.5-14.5)
[2018-12-13 06:02] LABS: ALT/SGPT 49 U/l (0-40); Albumin 3.4 gm/dL (3.2-5.2); Albumin/Globulin Ratio 1.1 (1.0-2.3); Alkaline Phosphatase 98 U/L (39-117); Bilirubin,Direct < 0.2 mg/dL (0.0-0.3); Blood Urea Nitrogen 16 mg/dl (6-20); Gamma Glutamyl Transpeptidase 32 U/L (5-36); Uric Acid 1.4 mg/dL (2.5-8.0)
[2018-12-13] MEDS: PROMETHAZINE 25 MG/ML VIAL IV PRN (06:15)
[2018-12-13] MEDS: ERYTHROMYCIN BASE 250 MG TABLET PO SCH ×3 (06:16→17:17)
[2018-12-13] MEDS: INSULIN LISPRO 1 UNIT/0.01 ML UNIT SQ SCH ×3 (06:18→17:19)
[2018-12-13] MEDS: metFORMIN 500 MG TABLET PO SCH (08:15)
[2018-12-13] MEDS: DULoxetine 30 MG CAPSULE PO SCH ×2 (08:15→20:56)
[2018-12-13] MEDS: MUPIROCIN OINT 2% 22GM TOPICAL SCH (08:15)
[2018-12-13] MEDS: predniSONE 20 MG TABLET PO SCH (08:15)
[2018-12-13] MEDS: LISINOPRIL 20 MG TABLET PO SCH ×2 (08:15→20:56)
[2018-12-13] MEDS: MAGNESIUM OXIDE 400 MG TABLET PO SCH ×3 (08:15→20:56)
[2018-12-13] MEDS: PYRIDOSTIGMINE 60 MG TABLET PO SCH ×3 (08:17→22:02)
[2018-12-13] MEDS: PANTOPRAZOLE 40 MG VIAL IV SCH ×2 (09:54→17:18)
[2018-12-13] MEDS: LEVOTHYROXINE 100 MCG VIAL IV SCH (09:54)
--- NOTE | 2018-12-13 13:35 | General Surgery Progress Note ---
Subjective Patient reports: feels better, still having pain, pain is less, tolerating liquids well, flatus, bowel movement, diarrhea, nausea, vomiting, afebrile Narrative: Note initiated : 12/13/18 at 1:34 pm Service Date, if different from initiated Date: [] Patient: Dayanna Stephens 58 y/o F admitted on 11/28/18 for Abdominal Pain. Chief Complaint: [Patient is slowly improving. She had some nausea with small amount of emesis last evening. She is having more liquid stools and passing more gas at this time. She did not complain of any increase circulation so muscle contractions from the increased dose of Mestinon.] Objective Temp Pulse Resp BP Pulse Ox 97.9 F 104 H 20 125/73 94 12/13/18 11:15 12/13/18 03:44 12/13/18 11:15 12/13/18 11:15 12/13/18 11:15 - Additional Data Intake & Output - Last 24 hours: Intake & Output 12/11/18 12/12/18 12/13/18 12/14/18 05:59 05:59 05:59 05:59 Intake Total 2250 3960 2497 Output Total 4875 7200 5650 Balance -4862 -4955 -5918 Weight 259 lb 261 lb 8 oz 251 lb 1.6 oz - General physical appearance well developed, well nourished, no distress, moderate pain - Eyes PERRL, normal ocular movement - ENT normal pinna, normal nares, normal mucosa, no hearing loss, no congestion - Neck no masses, no bruits, trachea midline, no lymphadenopathy, no venous distension - Respiratory normal expansion, normal respiratory effort, clear to auscultation - Cardiovascular Cardiovascular exam: Present: normal rate and rhythm, RRR, +S1, +S2, tachycardia. Absent: JVD - Abdomen tender (mild incisional tenderness), bowel sounds (present), surgical scars (none), masses (none) - Integumentary no rash, no growths, no abnormal pigmentation - Neurologic normal coordination, normal sensation - Musculoskeletal normal gait, normal posture - Psychiatric oriented to time, oriented to person, oriented to place, speech is normal, memory intact - Labs 12/13/18 03:54 12/13/18 03:54 Diabetes panel 12/13/18 Range/Units 03:54 Sodium 137 (133-145) mmol/L Potassium 5.0 (3.3-5.1) mmol/L Chloride 96 (96-108) mmol/L Carbon Dioxide 30 (22-30) mmol/L BUN 16 (6-20) mg/dl Creatinine 0.7 (0.6-1.1) mg/dl Glucose 176 H (70-105) mg/dL Calcium 7.6 L (8.6-10.4) mg/dl AST 20 (0-37) U/l ALT 49 H (0-40) U/l Alkaline Phosphatase 98 (39-117) U/L Total Protein 6.6 (5.9-8.4) gm/dL Albumin 3.4 (3.2-5.2) gm/dL Triglycerides 435 H (<150) mg/dl Calcium panel 12/13/18 Range/Units 03:54 Calcium 7.6 L (8.6-10.4) mg/dl Phosphorus 3.2 (2.7-4.5) mg/dL Albumin 3.4 (3.2-5.2) gm/dL Pituitary panel 12/13/18 Range/Units 03:54 Sodium 137 (133-145) mmol/L Potassium 5.0 (3.3-5.1) mmol/L Chloride 96 (96-108) mmol/L Carbon Dioxide 30 (22-30) mmol/L BUN 16 (6-20) mg/dl Creatinine 0.7 (0.6-1.1) mg/dl Glucose 176 H (70-105) mg/dL Calcium 7.6 L (8.6-10.4) mg/dl Adrenal panel 12/13/18 Range/Units 03:54 Sodium 137 (133-145) mmol/L Potassium 5.0 (3.3-5.1) mmol/L Chloride 96 (96-108) mmol/L Carbon Dioxide 30 (22-30) mmol/L BUN 16 (6-20) mg/dl Creatinine 0.7 (0.6-1.1) mg/dl Glucose 176 H (70-105) mg/dL Calcium 7.6 L (8.6-10.4) mg/dl Total Bilirubin 0.2 (0.0-1.0) mg/dL AST 20 (0-37) U/l ALT 49 H (0-40) U/l Alkaline Phosphatase 98 (39-117) U/L Total Protein 6.6 (5.9-8.4) gm/dL Albumin 3.4 (3.2-5.2) gm/dL Assessment and Plan (1) Chronic intestinal pseudo-obstruction Status: Acute Assessment and plan: Continue IV fluids and TPN Soft diet Follow-up abdominal x-rays in the [facility] Increase Mestinon to 4 times daily Current Visit: Yes (2) Myasthenia gravis Status: Acute Current Visit: No - Time Spent With Patient Total time spent is greater than 50% in coordination of care (as documented) at patient's floor/unit and/or counseling patient:
--- NOTE | 2018-12-13 15:39 | XRay Report ---
CLINICAL INFORMATION: FOR F/U OF ILEUS COMPARISON: 12/12/2018 FINDINGS: Stomach and a few loops of small bowel containing air-fluid levels but remain nondilated. Findings are compatible with mild postoperative ileus. No change. Drains are in stable position. No free air IMPRESSION: No change in mild postop ileus pattern Interpreted and Authenticated by: All Lundberg 12/13/18
[2018-12-13] MEDS: [UNRECOGNIZED DRUG - REMARK] IV SCH (16:36)
[2018-12-13] MEDS: CYCLOBENZAPRINE 10 MG TABLET PO PRN (22:02)
[2018-12-14] MEDS: ERYTHROMYCIN BASE 250 MG TABLET PO SCH ×5 (00:01→23:52)
[2018-12-14] MEDS: INSULIN LISPRO 1 UNIT/0.01 ML UNIT SQ SCH ×5 (00:05→23:53)
[2018-12-14] MEDS: HYDROmorphone 2 MG/ML VIAL IV PRN ×6 (02:49→13:59)
[2018-12-14] MEDS: MAGNESIUM OXIDE 400 MG TABLET PO SCH ×3 (07:49→21:32)
[2018-12-14] MEDS: predniSONE 20 MG TABLET PO SCH (07:49)
[2018-12-14] MEDS: PYRIDOSTIGMINE 60 MG TABLET PO SCH ×4 (07:49→21:32)
[2018-12-14] MEDS: LISINOPRIL 20 MG TABLET PO SCH ×2 (07:49→21:32)
[2018-12-14] MEDS: DULoxetine 30 MG CAPSULE PO SCH ×2 (07:49→21:32)
[2018-12-14] MEDS: metFORMIN 500 MG TABLET PO SCH (07:49)
[2018-12-14] MEDS: PANTOPRAZOLE 40 MG VIAL IV SCH ×2 (07:51→16:45)
[2018-12-14] MEDS: LEVOTHYROXINE 100 MCG VIAL IV SCH (07:52)
--- NOTE | 2018-12-14 10:10 | XRay Report ---
CLINICAL INFORMATION: f/u post op ileus COMPARISON: 12/13/2018 FINDINGS: The stomach, multiple loops of small bowel in the central abdomen and residual colon show air-fluid levels and are borderline dilated. No free air or soft tissue mass. Drains remain in stable position. IMPRESSION: Mild progression of postoperative ileus. Recurrent bowel obstruction is less likely, but not totally excluded. At this point, consider repeat abdomen and pelvic CT Interpreted and Authenticated by: All Lundberg 12/14/18
--- NOTE | 2018-12-14 13:45 | General Surgery Progress Note ---
Subjective Patient reports: feels better, pain is less, tolerating a regular diet, flatus, bowel movement, afebrile Narrative: Note initiated : 12/14/18 at 1:43 pm Service Date, if different from initiated Date: [] Patient: Dayanna Stephens 58 y/o F admitted on 11/28/18 for Abdominal Pain. Chief Complaint: [patient is generally feeling better. She states that she has less nausea. She is having gas and liquid output through her stoma. She has tolerated some regular diet without difficulty. She's been afebrile.] Objective Temp Pulse Resp BP Pulse Ox 97.2 F 95 H 14 130/58 95 12/14/18 08:00 12/14/18 08:00 12/14/18 08:00 12/14/18 08:00 12/14/18 08:00 - Additional Data Intake & Output - Last 24 hours: Intake & Output 12/12/18 12/13/18 12/14/18 12/15/18 05:59 05:59 05:59 05:59 Intake Total 3960 2497 2474 Output Total 7200 5650 6350 Balance -2942 -1444 -8783 Weight 261 lb 8 oz 251 lb 1.6 oz 251 lb 1.6 oz - General physical appearance well developed, well nourished, no distress - Eyes PERRL, normal ocular movement - ENT normal pinna, normal nares, normal mucosa, no hearing loss, no congestion - Neck no masses, no bruits, trachea midline, no lymphadenopathy, no venous distension - Respiratory normal expansion, normal respiratory effort, clear to auscultation - Cardiovascular Cardiovascular exam: Present: normal rate and rhythm, JVD, +S1, +S2. Absent: systolic murmur, tachycardia - Abdomen tender (mild incisional tenderness; good active spouse), bowel sounds (present), surgical scars (none), masses (none) - Integumentary no rash, no growths, no abnormal pigmentation - Neurologic normal coordination, normal sensation - Musculoskeletal normal gait, normal posture - Psychiatric oriented to time, oriented to person, oriented to place, speech is normal, memory intact - Labs 12/13/18 03:54 12/13/18 03:54 Assessment and Plan (1) Chronic intestinal pseudo-obstruction Status: Acute Assessment and plan: Saline lock IV and taper TPN Soft diet small bowel follow-through to be done in the morning Increase Mestinon to 4 times daily Current Visit: Yes (2) Myasthenia gravis Status: Acute Current Visit: No - Time Spent With Patient Total time spent is greater than 50% in coordination of care (as documented) at patient's floor/unit and/or counseling patient:
[2018-12-14] MEDS: [UNRECOGNIZED DRUG - REMARK] IV SCH (13:59)
[2018-12-14] MEDS: oxyCODONE HCL 5 MG TABLET PO PRN ×3 (15:35→23:52)
[2018-12-14] MEDS: CYCLOBENZAPRINE 10 MG TABLET PO PRN (21:32)
[2018-12-15] MEDS: oxyCODONE HCL 5 MG TABLET PO PRN ×4 (04:32→21:34)
[2018-12-15 05:07] LABS: Basophils # (Auto) 0.1 K/mcL (0.0-0.3); Basophils % (Auto) 0.5 % (0.0-2.0); Eosinophils # (Auto) 0.6 K/mcL (0.0-0.7); Eosinophils % (Auto) 4.8 % (0.0-7.0); Granulocytes % (Auto) 63.5 % (38.0-78.0); Lymphocytes # (Auto) 2.7 K/mcL (1.5-4.8); Mean Cell Volume 80.4 fL (80.0-100.0); Mean Corpuscular HGB Conc 31.5 g/dL (31.0-36.0); Monocytes # (Auto) 1.1 K/mcL (0.1-0.9); Monocytes % (Auto) 9.2 % (1.0-12.0); Platelet Count 428 K/mcL (140-440); RBC 3.91 M/mcL (4.00-5.20)
[2018-12-15 05:49] LABS: ALT/SGPT 26 U/l (0-40); Albumin 3.2 gm/dL (3.2-5.2); Albumin/Globulin Ratio 1.2 (1.0-2.3); Alkaline Phosphatase 87 U/L (39-117); Bilirubin,Direct < 0.2 mg/dL (0.0-0.3); Blood Urea Nitrogen 23 mg/dl (6-20); Gamma Glutamyl Transpeptidase 22 U/L (5-36)
[2018-12-15] MEDS: ERYTHROMYCIN BASE 250 MG TABLET PO SCH ×3 (06:31→17:29)
[2018-12-15] MEDS: CYCLOBENZAPRINE 10 MG TABLET PO PRN (06:34)
[2018-12-15] MEDS: PANTOPRAZOLE 40 MG VIAL IV SCH ×2 (06:37→17:30)
[2018-12-15] MEDS: LEVOTHYROXINE 125 MCG TABLET PO SCH (06:38)
[2018-12-15] MEDS: HYDROmorphone 2 MG/ML VIAL IV PRN ×4 (06:49→19:09)
[2018-12-15] MEDS: predniSONE 20 MG TABLET PO SCH (09:11)
[2018-12-15] MEDS: LISINOPRIL 20 MG TABLET PO SCH ×2 (09:11→21:35)
[2018-12-15] MEDS: DULoxetine 30 MG CAPSULE PO SCH ×2 (09:11→21:35)
[2018-12-15] MEDS: MAGNESIUM OXIDE 400 MG TABLET PO SCH ×3 (09:11→21:35)
[2018-12-15] MEDS: PYRIDOSTIGMINE 60 MG TABLET PO SCH ×4 (09:11→21:35)
[2018-12-15] MEDS: metFORMIN 500 MG TABLET PO SCH (09:12)
[2018-12-15] MEDS: PROMETHAZINE 25 MG/ML VIAL IV PRN ×2 (11:00→15:43)
--- NOTE | 2018-12-15 17:06 | General Surgery Progress Note ---
Subjective Patient reports: feels better, pain is less, tolerating a regular diet, flatus, bowel movement, nausea, afebrile Narrative: Note initiated : 12/15/18 at 5:04 pm Service Date, if different from initiated Date: [] Patient: Dayanna Stephens 58 y/o F admitted on 11/28/18 for Abdominal Pain. Chief Complaint: [patient is stable. She had small bowel follow-through today which shows transit of contrast into the colon without actual area of obstruction. She continues to have liquid bowel movements. She is tolerating a soft diet without difficulty. She does complain of increased cramping and fasciculations due to the Mestinon.] Objective Temp Pulse Resp BP Pulse Ox 97.9 F 106 H 18 108/60 96 12/15/18 16:00 12/15/18 11:31 12/15/18 16:00 12/15/18 16:00 12/15/18 16:00 - Additional Data Intake & Output - Last 24 hours: Intake & Output 12/13/18 12/14/18 12/15/18 12/16/18 05:59 05:59 05:59 05:59 Intake Total 2497 2474 1940 700 Output Total 5650 6350 3200 800 Balance -6863 -3876 -1260 -100 Weight 251 lb 1.6 oz 251 lb 1.6 oz 242 lb 3.2 oz 242 lb 3.2 oz - General physical appearance well developed, well nourished, no distress - Eyes PERRL, normal ocular movement - ENT normal pinna, normal nares, normal mucosa, no hearing loss, no congestion - Neck no masses, no bruits, trachea midline, no lymphadenopathy, no venous distension - Respiratory normal expansion, normal respiratory effort, clear to auscultation - Cardiovascular Cardiovascular exam: Present: normal rate and rhythm, RRR, +S1, +S2. Absent: JVD, tachycardia - Abdomen bowel sounds (very good active bowel sounds), surgical scars (none), masses (none) - Integumentary no rash, no growths, no abnormal pigmentation - Neurologic normal coordination, normal sensation - Musculoskeletal normal gait, normal posture - Psychiatric oriented to time, oriented to person, oriented to place, speech is normal, memory intact - Labs 12/15/18 04:33 12/15/18 04:33 Diabetes panel 12/15/18 Range/Units 04:33 Sodium 138 (133-145) mmol/L Potassium 4.8 (3.3-5.1) mmol/L Chloride 99 (96-108) mmol/L Carbon Dioxide 31 H (22-30) mmol/L BUN 23 H (6-20) mg/dl Creatinine 0.7 (0.6-1.1) mg/dl Glucose 114 H (70-105) mg/dL Calcium 7.8 L (8.6-10.4) mg/dl AST 12 (0-37) U/l ALT 26 (0-40) U/l Alkaline Phosphatase 87 (39-117) U/L Total Protein 5.8 L (5.9-8.4) gm/dL Albumin 3.2 (3.2-5.2) gm/dL Triglycerides 295 H (<150) mg/dl Calcium panel 12/15/18 Range/Units 04:33 Calcium 7.8 L (8.6-10.4) mg/dl Phosphorus 5.0 H (2.7-4.5) mg/dL Albumin 3.2 (3.2-5.2) gm/dL Pituitary panel 12/15/18 Range/Units 04:33 Sodium 138 (133-145) mmol/L Potassium 4.8 (3.3-5.1) mmol/L Chloride 99 (96-108) mmol/L Carbon Dioxide 31 H (22-30) mmol/L BUN 23 H (6-20) mg/dl Creatinine 0.7 (0.6-1.1) mg/dl Glucose 114 H (70-105) mg/dL Calcium 7.8 L (8.6-10.4) mg/dl Adrenal panel 12/15/18 Range/Units 04:33 Sodium 138 (133-145) mmol/L Potassium 4.8 (3.3-5.1) mmol/L Chloride 99 (96-108) mmol/L Carbon Dioxide 31 H (22-30) mmol/L BUN 23 H (6-20) mg/dl Creatinine 0.7 (0.6-1.1) mg/dl Glucose 114 H (70-105) mg/dL Calcium 7.8 L (8.6-10.4) mg/dl Total Bilirubin 0.3 (0.0-1.0) mg/dL AST 12 (0-37) U/l ALT 26 (0-40) U/l Alkaline Phosphatase 87 (39-117) U/L Total Protein 5.8 L (5.9-8.4) gm/dL Albumin 3.2 (3.2-5.2) gm/dL Assessment and Plan (1) Chronic intestinal pseudo-obstruction Status: Acute Assessment and plan: Saline lock IV and taper TPN Soft diet Decrease Mestinon to 3 times daily abdominal x-rays in the morning Current Visit: Yes (2) Myasthenia gravis Status: Acute Current Visit: No - Time Spent With Patient Total time spent is greater than 50% in coordination of care (as documented) at patient's floor/unit and/or counseling patient:
--- NOTE | 2018-12-15 17:28 | XRay Report ---
HISTORY: Abdominal pain, small bowel obstruction and status post recent abdominal surgery to correct a bowel obstruction FINDINGS: The skip tender film of the abdomen reveals presence of a long drainage catheter looped within the abdomen. The tip is in the left upper quadrant. It is difficult to determine if this is located in large or small bowel. The patient was given 1 1/2 cups of diluted Gastrografin contrast to drink. She was nauseated and was unable to drink the full 2 cups. Serial overhead images and spot compression views were obtained. There is very slow transit of contrast through stomach and small bowel to the remaining portion of the colon. Even at seven hours there is residual contrast within the stomach duodenum and jejunum. The small intestine is mildly dilated. The greatest dilatation is in the proximal small bowel. As the contrast progressed distally, it became diluted with the secretions within the bowel. The patient is also very obese resulting in scatter artifact. At seven hours and 40 minutes there is some oral contrast seen in the transverse colon. Transverse colon is not abnormally dilated. There is a colostomy in the left side of the pelvis. The contrast did not reach the ostomy at seven hours and 40 minutes. A transition point is not seen. There is very slow peristalsis throughout the large and small intestine. The wall of the intestine does not appear to be thickened or inflamed. No perforation is identified. IMPRESSION: Postoperative ileus with dilated small bowel and very slow peristalsis Interpreted and Authenticated by: Zay Juarez 12/15/18
[2018-12-16] MEDS: ERYTHROMYCIN BASE 250 MG TABLET PO SCH ×4 (00:20→17:45)
[2018-12-16] MEDS: HYDROmorphone 2 MG/ML VIAL IV PRN ×3 (00:20→17:53)
[2018-12-16] MEDS: PROMETHAZINE 25 MG/ML VIAL IV PRN ×4 (03:18→20:56)
[2018-12-16] MEDS: oxyCODONE HCL 5 MG TABLET PO PRN ×4 (03:18→20:45)
[2018-12-16 06:42] LABS: Basophils # (Auto) 0.1 K/mcL (0.0-0.3); Basophils % (Auto) 0.4 % (0.0-2.0); Eosinophils # (Auto) 0.6 K/mcL (0.0-0.7); Eosinophils % (Auto) 4.7 % (0.0-7.0); Granulocytes % (Auto) 61.3 % (38.0-78.0); Lymphocytes # (Auto) 2.8 K/mcL (1.5-4.8); Lymphocytes % (Auto) 21.5 % (15.5-49.0); Mean Cell Volume 80.8 fL (80.0-100.0); Mean Corpuscular HGB Conc 31.2 g/dL (31.0-36.0); Monocytes # (Auto) 1.6 K/mcL (0.1-0.9); Monocytes % (Auto) 12.1 % (1.0-12.0); Platelet Count 491 K/mcL (140-440); RBC 4.33 M/mcL (4.00-5.20); Red Cell Distribution Width 19.7 % (11.5-14.5)
[2018-12-16 07:06] LABS: ALT/SGPT 30 U/l (0-40); Albumin 3.3 gm/dL (3.2-5.2); Albumin/Globulin Ratio 1.1 (1.0-2.3); Alkaline Phosphatase 104 U/L (39-117); Bilirubin,Direct < 0.2 mg/dL (0.0-0.3); Blood Urea Nitrogen 31 mg/dl (6-20); Gamma Glutamyl Transpeptidase 26 U/L (5-36)
[2018-12-16] MEDS: PANTOPRAZOLE 40 MG VIAL IV SCH ×2 (07:08→17:45)
[2018-12-16] MEDS: LEVOTHYROXINE 125 MCG TABLET PO SCH (07:08)
--- NOTE | 2018-12-16 07:50 | XRay Report ---
HISTORY: Abdominal pain, recent small bowel obstruction and status post recent abdominal surgery to correct the obstruction FINDINGS: There is a large amount of residual Gastrografin contrast in the abdomen and pelvis. Much of the contrast has passed through the small intestine into the colon. There is no residual contrast in the stomach but there is an air-fluid level due to ingested liquids. The small bowel is normal in caliber on today's study. It was dilated on yesterday's small bowel follow-through. The colon is normal in caliber. The contrast is extending down close to the ostomy in the left side of the pelvis. IMPRESSION: Normal bowel pattern without evidence of ileus or obstruction Interpreted and Authenticated by: Zay Juarez 12/16/18
[2018-12-16] MEDS: metFORMIN 500 MG TABLET PO SCH (11:08)
[2018-12-16] MEDS: MAGNESIUM OXIDE 400 MG TABLET PO SCH ×3 (11:08→20:45)
[2018-12-16] MEDS: DULoxetine 30 MG CAPSULE PO SCH ×2 (11:09→20:45)
[2018-12-16] MEDS: predniSONE 20 MG TABLET PO SCH (11:09)
[2018-12-16] MEDS: LISINOPRIL 20 MG TABLET PO SCH ×2 (12:08→20:45)
[2018-12-16] MEDS: PYRIDOSTIGMINE 60 MG TABLET PO SCH ×3 (12:09→21:03)
--- NOTE | 2018-12-16 14:55 | Operative Note ---
DATE OF OPERATION: 12/06/2018 PREOPERATIVE DIAGNOSIS: Partial small bowel obstruction and intestinal pseudoobstruction. POSTOPERATIVE DIAGNOSES: 1. Small bowel obstruction. 2. Extensive small bowel adhesions. 3. Chronic intestinal pseudoobstruction. PROCEDURE IN DETAIL: Exploratory laparotomy with small bowel adhesiolysis Centre Parra's 2 total small bowel plication implant, 9 foot Parra's 2. FINDINGS: Massive dilation of small bowel with extensive dense adhesions involving all of the small bowel with multiple areas of near complete obstruction. DESCRIPTION OF PROCEDURE: Under general anesthesia, the stoma was closed with running 2-0 silk. The abdomen was then prepped and draped and covered with an [place] drape. The old midline incision was opened. Upon entering the peritoneal cavity, there was massive dilation of all of her loops of small bowel extending from the ligament of Treitz to the cecum. There were many areas of acute angulation of the bowel with some areas of near complete obstruction. All of the adhesions were taken down, taking care not to cause any enterotomies. Adhesions from the ligament of Treitz to the cecum were lysed and the colon was straightened. The colon was very floppy and atonic on inspection, but had good vascularity. Because of the pure peristalsis it was elected to do a Parra's 2 Plication of the small bowel. A 9 foot Parra's tube with a 10 mL balloon was passed through the abdominal wall. Retaining sutures of 3-0 silk were made in the cecum. Using an 11 blade, a small incision was made in the middle of this retaining suture. The tube was passed into the cecum and maneuvered into the terminal ileum without difficulty. The suture ends were tied to prevent fecal contamination. The tube balloon was then insufflated with 10 mL of air and using gentle pressure, the balloon was maneuvered to the ligament of Treitz. At the ligament of Treitz, the bowel was massively dilated so the balloon was left insufflated and #2 Monocryl sutures were used to tie through and through the wall of the colon around the tube and were tied to anchor the tube in place for the first few days. The intent is to reduce the balloon after 3 days. The tube was then covered using a Scout technique with imbrication of the tube on the serosa of the remaining cecum and creating a serosal tunnel starting slightly proximal to the puncture site and continuing to the edge of the cecum. This was done in a running locking pattern for continuous tunnel. The edge of the cecum was then sutured to the opening in the peritoneum and the lateral abdominal wall. The cecum was then sutured to the peritoneum using interrupted 3-0 silk to create a closed space to prevent contamination once the tube was removed. The tube was then sutured to the skin using two sutures of 2-0 Prolene. This is to prevent dislodgement of the tube. The bowel was irrigated with saline and then placed in an structural steel worker pattern back into the peritoneal cavity. Prior to doing this, the colon was inspected. The colon was dilated but otherwise was unremarkable without any evidence of obstruction down to the stoma. Sponge, needle, instrument and blade counts were verified as correct. The peritoneum and fascia were closed with running locking #1 Prolene. Subcutaneous tissue was irrigated and closed with running 2-0 Monocryl. Skin was closed with kori. A large Tegaderm dressing was placed. The stoma was opened and a stoma appliance was placed. The patient tolerated the procedure well. She was awakened and transferred to the postanesthetic care unit in stable, satisfactory condition. LCS:donovan Job ID: [id number] Doc ID: [id number] Bertha Currie M.D.
--- NOTE | 2018-12-16 15:49 | General Surgery Progress Note ---
Subjective Patient reports: feels better, pain is less, tolerating a regular diet, flatus, bowel movement, diarrhea, nausea, afebrile Narrative: Note initiated : 12/16/18 at 3:47 pm Service Date, if different from initiated Date: [] Patient: Dayanna Stephens 58 y/o F admitted on 11/28/18 for Abdominal Pain. Chief Complaint: [patient is improving but she still complains of nausea. Her abdomen is not distended and the abdominal series shows most of the contrast to be in her colon. She has had multiple bowel movements today. Her stomach is dilated suggesting that she has some element of gastroparesis. Patient is in line with her baseline hypotonic GI tract.] Objective Temp Pulse Resp BP Pulse Ox 97.3 F 108 H 18 102/60 93 12/16/18 11:14 12/16/18 11:14 12/16/18 11:14 12/16/18 11:14 12/16/18 11:14 - Additional Data Intake & Output - Last 24 hours: Intake & Output 12/14/18 12/15/18 12/16/18 12/17/18 05:59 05:59 05:59 05:59 Intake Total 2474 1940 1500 Output Total 6350 3200 2450 800 Balance -3876 -1260 -950 -800 Weight 251 lb 1.6 oz 242 lb 3.2 oz 241 lb - General physical appearance well developed, well nourished, no distress, chronically ill - Eyes PERRL, normal ocular movement - ENT normal pinna, normal nares, normal mucosa, no hearing loss, no congestion - Neck no masses, no bruits, trachea midline, no lymphadenopathy, no venous distension - Respiratory normal expansion, normal respiratory effort, clear to auscultation - Cardiovascular Cardiovascular exam: Present: normal rate and rhythm, RRR, +S1, +S2. Absent: JVD, tachycardia - Abdomen tender (mild tenderness with good active bowel sounds; surgical incision is unremarkable; stoma is working well) - Integumentary no rash, no growths, no abnormal pigmentation - Neurologic normal coordination, normal sensation - Musculoskeletal normal gait, normal posture - Psychiatric oriented to time, oriented to person, oriented to place, speech is normal, memory intact - Labs 12/16/18 04:00 12/16/18 04:00 Diabetes panel 12/16/18 Range/Units 04:00 Sodium 136 (133-145) mmol/L Potassium 4.9 (3.3-5.1) mmol/L Chloride 94 L (96-108) mmol/L Carbon Dioxide 30 (22-30) mmol/L BUN 31 H (6-20) mg/dl Creatinine 1.3 H (0.6-1.1) mg/dl Glucose 131 H (70-105) mg/dL Calcium 7.6 L (8.6-10.4) mg/dl AST 22 (0-37) U/l ALT 30 (0-40) U/l Alkaline Phosphatase 104 (39-117) U/L Total Protein 6.4 (5.9-8.4) gm/dL Albumin 3.3 (3.2-5.2) gm/dL Triglycerides 233 H (<150) mg/dl Calcium panel 12/16/18 Range/Units 04:00 Calcium 7.6 L (8.6-10.4) mg/dl Phosphorus 5.2 H (2.7-4.5) mg/dL Albumin 3.3 (3.2-5.2) gm/dL Pituitary panel 12/16/18 Range/Units 04:00 Sodium 136 (133-145) mmol/L Potassium 4.9 (3.3-5.1) mmol/L Chloride 94 L (96-108) mmol/L Carbon Dioxide 30 (22-30) mmol/L BUN 31 H (6-20) mg/dl Creatinine 1.3 H (0.6-1.1) mg/dl Glucose 131 H (70-105) mg/dL Calcium 7.6 L (8.6-10.4) mg/dl Adrenal panel 12/16/18 Range/Units 04:00 Sodium 136 (133-145) mmol/L Potassium 4.9 (3.3-5.1) mmol/L Chloride 94 L (96-108) mmol/L Carbon Dioxide 30 (22-30) mmol/L BUN 31 H (6-20) mg/dl Creatinine 1.3 H (0.6-1.1) mg/dl Glucose 131 H (70-105) mg/dL Calcium 7.6 L (8.6-10.4) mg/dl Total Bilirubin 0.3 (0.0-1.0) mg/dL AST 22 (0-37) U/l ALT 30 (0-40) U/l Alkaline Phosphatase 104 (39-117) U/L Total Protein 6.4 (5.9-8.4) gm/dL Albumin 3.3 (3.2-5.2) gm/dL Assessment and Plan (1) Chronic intestinal pseudo-obstruction Status: Acute Assessment and plan: Saline lock IV and taper TPN Regular diet Decrease Mestinon to 3 times daily Current Visit: Yes (2) Myasthenia gravis Status: Acute Current Visit: No - Time Spent With Patient Total time spent is greater than 50% in coordination of care (as documented) at patient's floor/unit and/or counseling patient:
[2018-12-17] MEDS: ERYTHROMYCIN BASE 250 MG TABLET PO SCH ×4 (00:49→18:03)
[2018-12-17] MEDS: oxyCODONE HCL 5 MG TABLET PO PRN ×4 (00:49→20:16)
[2018-12-17] MEDS: PROMETHAZINE 25 MG/ML VIAL IV PRN ×2 (02:40→16:19)
[2018-12-17] MEDS: HYDROmorphone 2 MG/ML VIAL IV PRN ×2 (04:38→10:19)
[2018-12-17 06:49] LABS: Basophils # (Auto) 0.1 K/mcL (0.0-0.3); Basophils % (Auto) 0.5 % (0.0-2.0); Eosinophils # (Auto) 0.3 K/mcL (0.0-0.7); Eosinophils % (Auto) 2.1 % (0.0-7.0); Granulocytes % (Auto) 67.7 % (38.0-78.0); Lymphocytes # (Auto) 2.4 K/mcL (1.5-4.8); Lymphocytes % (Auto) 17.9 % (15.5-49.0); Mean Cell Volume 80.8 fL (80.0-100.0); Mean Corpuscular HGB Conc 31.2 g/dL (31.0-36.0); Monocytes # (Auto) 1.6 K/mcL (0.1-0.9); Monocytes % (Auto) 11.8 % (1.0-12.0); Platelet Count 476 K/mcL (140-440); RBC 4.38 M/mcL (4.00-5.20); Red Cell Distribution Width 19.9 % (11.5-14.5)
[2018-12-17 07:20] LABS: ALT/SGPT 29 U/l (0-40); Albumin 3.5 gm/dL (3.2-5.2); Albumin/Globulin Ratio 1.2 (1.0-2.3); Alkaline Phosphatase 105 U/L (39-117); Bilirubin,Direct < 0.2 mg/dL (0.0-0.3); Blood Urea Nitrogen 32 mg/dl (6-20); Gamma Glutamyl Transpeptidase 24 U/L (5-36); Uric Acid 6.3 mg/dL (2.5-8.0)
[2018-12-17] MEDS: DULoxetine 30 MG CAPSULE PO SCH ×2 (07:27→20:16)
[2018-12-17] MEDS: PANTOPRAZOLE 40 MG VIAL IV SCH ×2 (07:27→16:19)
[2018-12-17] MEDS: MAGNESIUM OXIDE 400 MG TABLET PO SCH ×3 (07:27→20:16)
[2018-12-17] MEDS: LISINOPRIL 20 MG TABLET PO SCH ×2 (07:27→20:16)
[2018-12-17] MEDS: metFORMIN 500 MG TABLET PO SCH (07:27)
[2018-12-17] MEDS: predniSONE 20 MG TABLET PO SCH (07:27)
[2018-12-17] MEDS: LEVOTHYROXINE 125 MCG TABLET PO SCH (07:27)
[2018-12-17] MEDS: PYRIDOSTIGMINE 60 MG TABLET PO SCH ×3 (10:18→20:17)
[2018-12-17] MEDS ORDERED: LORazepam 1 MG TABLET PO PRN (14:02)
--- NOTE | 2018-12-17 14:06 | General Surgery Progress Note ---
Subjective Patient reports: tolerating liquids well, flatus, diarrhea, afebrile Narrative: Note initiated : 12/17/18 at 2:00 pm Service Date, if different from initiated Date: [] Patient: Dayanna Stephens 58 y/o F admitted on 11/28/18 for Abdominal Pain. Chief Complaint: [patient has been more anxious and agitated. Her urine output is decreased in her by mouth intake is decreased also. She had at least 4 measurable bowel movements the past 12. Most of her bowel movements are liquid. White blood count 13.4 hemoglobin 11, BUN 32 creatinine 1.7] Objective Temp Pulse Resp BP Pulse Ox 97.1 F 98 H 18 110/85 98 12/17/18 11:27 12/17/18 11:27 12/17/18 11:27 12/17/18 11:27 12/17/18 11:27 - Additional Data Intake & Output - Last 24 hours: Intake & Output 12/15/18 12/16/18 12/17/18 12/18/18 05:59 05:59 05:59 05:59 Intake Total 1940 1500 1050 Output Total 3200 2450 1250 Balance -1260 -950 -200 Weight 242 lb 3.2 oz 241 lb 234 lb 8 oz - General physical appearance well developed, well nourished, no distress, moderate pain, chronically ill - Eyes PERRL, normal ocular movement - ENT normal pinna, normal nares, normal mucosa, no hearing loss, no congestion - Neck no masses, no bruits, trachea midline, no lymphadenopathy, no venous distension - Respiratory normal expansion, normal respiratory effort, clear to auscultation - Cardiovascular Cardiovascular exam: Present: normal rate and rhythm, +S1, +S2, tachycardia (mild tachycardia with heart rate between 100 110). Absent: JVD - Abdomen bowel sounds (present), surgical scars (none), masses (none), distended ( mild abdominal distention without significant tenderness good active bowel sounds) - Integumentary no rash, no growths, no abnormal pigmentation - Neurologic normal coordination, normal sensation - Musculoskeletal normal gait, normal posture - Psychiatric oriented to time, oriented to person, oriented to place, speech is normal, memory intact - Labs 12/17/18 04:30 12/17/18 04:30 Diabetes panel 12/17/18 Range/Units 04:30 Sodium 136 (133-145) mmol/L Potassium 5.0 (3.3-5.1) mmol/L Chloride 93 L (96-108) mmol/L Carbon Dioxide 32 H (22-30) mmol/L BUN 32 H (6-20) mg/dl Creatinine 1.7 H (0.6-1.1) mg/dl Glucose 139 H (70-105) mg/dL Calcium 7.9 L (8.6-10.4) mg/dl AST 21 (0-37) U/l ALT 29 (0-40) U/l Alkaline Phosphatase 105 (39-117) U/L Total Protein 6.5 (5.9-8.4) gm/dL Albumin 3.5 (3.2-5.2) gm/dL Triglycerides 197 H (<150) mg/dl Calcium panel 12/17/18 Range/Units 04:30 Calcium 7.9 L (8.6-10.4) mg/dl Phosphorus 4.1 (2.7-4.5) mg/dL Albumin 3.5 (3.2-5.2) gm/dL Pituitary panel 12/17/18 Range/Units 04:30 Sodium 136 (133-145) mmol/L Potassium 5.0 (3.3-5.1) mmol/L Chloride 93 L (96-108) mmol/L Carbon Dioxide 32 H (22-30) mmol/L BUN 32 H (6-20) mg/dl Creatinine 1.7 H (0.6-1.1) mg/dl Glucose 139 H (70-105) mg/dL Calcium 7.9 L (8.6-10.4) mg/dl Adrenal panel 12/17/18 Range/Units 04:30 Sodium 136 (133-145) mmol/L Potassium 5.0 (3.3-5.1) mmol/L Chloride 93 L (96-108) mmol/L Carbon Dioxide 32 H (22-30) mmol/L BUN 32 H (6-20) mg/dl Creatinine 1.7 H (0.6-1.1) mg/dl Glucose 139 H (70-105) mg/dL Calcium 7.9 L (8.6-10.4) mg/dl Total Bilirubin 0.3 (0.0-1.0) mg/dL AST 21 (0-37) U/l ALT 29 (0-40) U/l Alkaline Phosphatase 105 (39-117) U/L Total Protein 6.5 (5.9-8.4) gm/dL Albumin 3.5 (3.2-5.2) gm/dL Assessment and Plan (1) Chronic intestinal pseudo-obstruction Status: Acute Assessment and plan: Normal saline 150 cc per hour Regular diet Decrease Mestinon to 3 times daily Recheck labs in the morning Delay discharge Add lorazepam 1 mg 3 times daily as needed for anxiety Current Visit: Yes (2) Myasthenia gravis Status: Acute Current Visit: No - Time Spent With Patient Total time spent is greater than 50% in coordination of care (as documented) at patient's floor/unit and/or counseling patient:
[2018-12-17] MEDS: 0.9 % SODIUM CHLORIDE 1,000 ML IV SCH (16:42)
[2018-12-17] MEDS: BENZOCAINE/MENTHOL 1 LOZENGE PO PRN (22:40)
[2018-12-18] MEDS: 0.9 % SODIUM CHLORIDE 1,000 ML IV SCH ×7 (00:12→17:30)
[2018-12-18] MEDS: ERYTHROMYCIN BASE 250 MG TABLET PO SCH ×4 (00:14→17:24)
[2018-12-18 06:52] LABS: ALT/SGPT 21 U/l (0-40); Albumin 3.1 gm/dL (3.2-5.2); Albumin/Globulin Ratio 1.3 (1.0-2.3); Alkaline Phosphatase 101 U/L (39-117); Bilirubin,Direct < 0.2 mg/dL (0.0-0.3); Blood Urea Nitrogen 38 mg/dl (6-20); Gamma Glutamyl Transpeptidase 18 U/L (5-36); Uric Acid 6.9 mg/dL (2.5-8.0)
[2018-12-18] MEDS: oxyCODONE HCL 5 MG TABLET PO PRN ×4 (07:06→21:41)
[2018-12-18] MEDS: PANTOPRAZOLE 40 MG VIAL IV SCH ×2 (07:06→17:22)
[2018-12-18] MEDS: LEVOTHYROXINE 125 MCG TABLET PO SCH (07:07)
[2018-12-18] MEDS: DULoxetine 30 MG CAPSULE PO SCH ×2 (08:28→21:41)
[2018-12-18] MEDS: metFORMIN 500 MG TABLET PO SCH (08:28)
[2018-12-18] MEDS: predniSONE 20 MG TABLET PO SCH (08:28)
[2018-12-18] MEDS: MAGNESIUM OXIDE 400 MG TABLET PO SCH ×3 (08:28→21:41)
--- NOTE | 2018-12-18 09:06 | XRay Report ---
HISTORY: Abdominal pain and follow-up ileus FINDINGS: There is residual contrast in the colon following the recent small bowel follow-through. Contrast has cleared from the small intestine. There is a moderate amount of air and fluid within the stomach. The stomach is not overdistended. Couple small air-fluid levels are present in nondilated small intestine and colon. There is a long catheter within the abdomen. The tip is in the left upper quadrant. This catheter is not in the colon. Comparison with the prior exam from 12/16/18 shows partial clearing of the contrast from the large and complete clearing from the small intestine. IMPRESSION: Persistent mild ileus Interpreted and Authenticated by: Zay Juarez 12/18/18
[2018-12-18] MEDS: PYRIDOSTIGMINE 60 MG TABLET PO SCH ×2 (10:12→14:52)
[2018-12-18] MEDS: ACETAMINOPHEN 1,000 MG/100 ML BOTTLE IV PRN (14:35)
[2018-12-18] MEDS: PROMETHAZINE 25 MG/ML VIAL IV PRN ×3 (14:53→23:47)
--- NOTE | 2018-12-18 18:52 | General Surgery Progress Note ---
Subjective Patient reports: other (patient has been intermittently confused over the past 48 hours. She is easily reoriented and she is aware that she is having some hallucinations. This may be related to her combinations of medications. Discus sed with her that I was going to stop her Ativan, Mestinon, but continue her Cymbalta to prevent benzodiazepine withdrawal. She will be continued on the oral oxycodone. She had single elevated temperature documented but has been afebrile since then. Chest x-ray, CT of the abdomen and pelvis without contrast, urine analysis will be done.) Narrative: Note initiated : 12/18/18 at 6:50 pm Service Date, if different from initiated Date: [] Patient: Dayanna Stephens 58 y/o F admitted on 11/28/18 for Abdominal Pain. Chief Complaint: [] Objective Temp Pulse Resp BP Pulse Ox 97.4 F 80 16 112/68 96 12/18/18 16:00 12/18/18 16:00 12/18/18 16:00 12/18/18 16:00 12/18/18 16:00 - Additional Data Intake & Output - Last 24 hours: Intake & Output 12/16/18 12/17/18 12/18/18 12/19/18 05:59 05:59 05:59 05:59 Intake Total 1500 1050 1240 4055 Output Total 2450 1250 965 525 Balance -950 -687 408 9126 Weight 241 lb 234 lb 8 oz 235 lb 9.6 oz 235 lb 9.6 oz - General physical appearance no distress, moderate pain - Eyes PERRL, normal ocular movement - ENT normal pinna, normal nares, normal mucosa, no hearing loss, no congestion - Neck no masses, no bruits, trachea midline, no lymphadenopathy, no venous distension - Respiratory normal expansion, normal respiratory effort, clear to auscultation - Cardiovascular Cardiovascular exam: Present: normal rate and rhythm, +S1, +S2, tachycardia. Absent: JVD, RRR - Abdomen tender (minimal tenderness but moderate distention; good active bowel sounds; incision looks good) - Integumentary no rash, no growths, no abnormal pigmentation - Neurologic normal coordination, normal sensation - Musculoskeletal normal gait, normal posture - Psychiatric oriented to time, oriented to person, oriented to place, speech is normal, [facility] intact - Labs 12/17/18 04:30 12/18/18 04:00 Diabetes panel 12/18/18 Range/Units 04:00 Sodium 137 (133-145) mmol/L Potassium 5.1 (3.3-5.1) mmol/L Chloride 98 (96-108) mmol/L Carbon Dioxide 29 (22-30) mmol/L BUN 38 H (6-20) mg/dl Creatinine 2.0 H (0.6-1.1) mg/dl Glucose 96 (70-105) mg/dL Calcium 7.0 L (8.6-10.4) mg/dl AST 19 (0-37) U/l ALT 21 (0-40) U/l Alkaline Phosphatase 101 (39-117) U/L Total Protein 5.5 L (5.9-8.4) gm/dL Albumin 3.1 L (3.2-5.2) gm/dL Triglycerides 143 (<150) mg/dl Calcium panel 12/18/18 Range/Units 04:00 Calcium 7.0 L (8.6-10.4) mg/dl Phosphorus 4.4 (2.7-4.5) mg/dL Albumin 3.1 L (3.2-5.2) gm/dL Pituitary panel 12/18/18 Range/Units 04:00 Sodium 137 (133-145) mmol/L Potassium 5.1 (3.3-5.1) mmol/L Chloride 98 (96-108) mmol/L Carbon Dioxide 29 (22-30) mmol/L BUN 38 H (6-20) mg/dl Creatinine 2.0 H (0.6-1.1) mg/dl Glucose 96 (70-105) mg/dL Calcium 7.0 L (8.6-10.4) mg/dl Adrenal panel 12/18/18 Range/Units 04:00 Sodium 137 (133-145) mmol/L Potassium 5.1 (3.3-5.1) mmol/L Chloride 98 (96-108) mmol/L Carbon Dioxide 29 (22-30) mmol/L BUN 38 H (6-20) mg/dl Creatinine 2.0 H (0.6-1.1) mg/dl Glucose 96 (70-105) mg/dL Calcium 7.0 L (8.6-10.4) mg/dl Total Bilirubin 0.4 (0.0-1.0) mg/dL AST 19 (0-37) U/l ALT 21 (0-40) U/l Alkaline Phosphatase 101 (39-117) U/L Total Protein 5.5 L (5.9-8.4) gm/dL Albumin 3.1 L (3.2-5.2) gm/dL Assessment and Plan (1) Chronic intestinal pseudo-obstruction Status: Acute Assessment and plan: Normal saline 150 cc per hour Regular diet Discontinue Mestinon and Ativan Recheck labs in the morning CT of abdomen and pelvis without contrast in the morning to evaluate position and status of small bowel Current Visit: Yes (2) Myasthenia gravis Status: Acute Current Visit: No - Time Spent With Patient Total time spent is greater than 50% in coordination of care (as documented) at patient's floor/unit and/or counseling patient:
[2018-12-18] MEDS: MEROPENEM 0.5 GM in 0.9 % SODIUM CHLORIDE 50 ML IV SCH (21:40)
[2018-12-19] MEDS: 0.9 % SODIUM CHLORIDE 1,000 ML IV SCH ×5 (00:54→23:24)
[2018-12-19] MEDS: oxyCODONE HCL 5 MG TABLET PO PRN ×2 (02:00→12:19)
[2018-12-19] MEDS: PROMETHAZINE 25 MG/ML VIAL IV PRN (04:27)
[2018-12-19] MEDS: PANTOPRAZOLE 40 MG VIAL IV SCH ×2 (06:45→16:43)
[2018-12-19] MEDS: LEVOTHYROXINE 125 MCG TABLET PO SCH (06:45)
[2018-12-19 06:57] LABS: Basophils # (Auto) 0 K/mcL (0.0-0.3); Basophils % (Auto) 0.2 % (0.0-2.0); Eosinophils # (Auto) 0.2 K/mcL (0.0-0.7); Eosinophils % (Auto) 2.4 % (0.0-7.0); Granulocytes % (Auto) 71.8 % (38.0-78.0); Lymphocytes # (Auto) 1.2 K/mcL (1.5-4.8); Lymphocytes % (Auto) 14.2 % (15.5-49.0); Mean Cell Volume 80.5 fL (80.0-100.0); Mean Corpuscular HGB Conc 31.4 g/dL (31.0-36.0); Monocytes # (Auto) 0.9 K/mcL (0.1-0.9); Monocytes % (Auto) 11.4 % (1.0-12.0); Platelet Count 426 K/mcL (140-440); RBC 4.05 M/mcL (4.00-5.20); Red Cell Distribution Width 20.6 % (11.5-14.5)
[2018-12-19 07:59] LABS: ALT/SGPT 19 U/l (0-40); Albumin 3.1 gm/dL (3.2-5.2); Albumin/Globulin Ratio 1.1 (1.0-2.3); Alkaline Phosphatase 100 U/L (39-117); Bilirubin,Direct < 0.2 mg/dL (0.0-0.3); Blood Urea Nitrogen 18 mg/dl (6-20); Gamma Glutamyl Transpeptidase 18 U/L (5-36); Uric Acid 4.9 mg/dL (2.5-8.0)
[2018-12-19] MEDS: ACETAMINOPHEN 1,000 MG/100 ML BOTTLE IV PRN ×2 (08:03→19:00)
--- NOTE | 2018-12-19 08:14 | XRay Report ---
HISTORY: Pneumonitis FINDINGS: There are thin linear bands of scar tissue adjacent to the left upper heart border and overlying the right diaphragm. There is a noncalcified granuloma in the central portion of the right lung. There is no evidence of pneumonia, pleural effusion or congestive heart failure. The heart size is normal. There are sternal wires present. Right internal jugular catheter and left-sided Port-A-Cath remain well-positioned. The nasogastric tube has been removed since prior exam. IMPRESSION: No evidence of pneumonia or congestive heart failure Interpreted and Authenticated by: Zay Juarez 12/19/18
[2018-12-19 09:33] LABS: Appearance,Urine CLEAR; Bilirubin,Urine NEG (NEG); Color,Urine STRAW; Glucose,Urine (UA) 50 mg/dL (NEG); Leukocyte Esterase,Urine NEG /uL (NEG); Protein,Urine NEG (NEG); Urine Blood NEG mg/dL (<0.03); Urobilinogen,Urine NEG (NEG)
--- NOTE | 2018-12-19 11:48 | Cat Scan Report ---
CLINICAL INFORMATION: Bowel obstruction COMPARISON: Small bowel follow-through nine 12/15/18 TECHNIQUE: The abdomen was imaged without oral or IV contrast, scanning from the diaphragm to the symphysis pubis. Sagittal and coronal reformats were created. FINDINGS: The thoracic esophagus is mildly dilated with fluid. There are bands of scar or discoid atelectasis in both lung bases and a granuloma in the right middle lobe. The heart size is normal and there has been a prior sternotomy. The liver is normal in size. There is moderate generalized fatty infiltration. The gallbladder is been removed. The bile ducts are nondilated. The spleen is normal. There is atrophy of the pancreas. No abnormality seen within the adrenals or kidneys. The aorta is normal in caliber and there is no plaque formation. There is residual contrast in the distal small intestine and colon following the recent small bowel follow-through. The stomach is distended with large amount of gas and a small amount of fluid. The duodenum is abnormally dilated and measures 8.1 cm. Trace amount of residual contrast is present along the posterior wall of the second portion. The proximal jejunum is also dilated and filled with unopacified fluid. The jejunum measures up to 6.7 cm. There is a Parra's cyst drainage tube placed through the right lateral abdominal wall, through the cecum and ileocecal valve into the jejunum. The distal small bowel contains contrast but is not abnormally dilated. There is a gradual transition to dilated jejunum. The tip of the catheter is somewhere in the mid jejunum. The ascending colon is normal in caliber. There is complete collapse of the transverse and descending colon. There is a colostomy in the left anterior abdominal wall. Contrast passes through the ostomy to the skin surface. There is no evidence of inflammation or obstruction of the colon. There is a residual postoperative seroma in the left anterior pelvic wall following the recent surgery. It measures 4 x 5.5 cm. The remaining portion of the isolated distal sigmoid colon and rectum are decompressed. Urinary bladder appears normal. Uterus and ovaries are atrophic. No free intraperitoneal air is present and there is no intra-abdominal abscess. IMPRESSION: Abnormally distended esophagus stomach duodenum and proximal jejunum. No transition point is clearly identified. This may be due to lack of peristalsis or a nonvisualized stricture. The results were discussed with Dr. Currie. Interpreted and Authenticated by: Zay Juarez 12/19/18
[2018-12-19] MEDS ORDERED: TPN PER PHARMACY IV SCH (12:00)
[2018-12-19] MEDS: predniSONE 20 MG TABLET PO SCH (12:19)
[2018-12-19] MEDS: MAGNESIUM OXIDE 400 MG TABLET PO SCH ×3 (12:19→20:51)
[2018-12-19] MEDS: DULoxetine 30 MG CAPSULE PO SCH ×2 (12:19→20:51)
[2018-12-19] MEDS: METHYLNALTREXONE BROMIDE 12 MG/0.6 ML SYRINGE SQ SCH (12:38)
--- NOTE | 2018-12-19 14:26 | General Surgery Progress Note ---
Subjective Patient reports: pain is less, flatus, bowel movement, nausea, afebrile Narrative: Note initiated : 12/19/18 at 2:23 pm Service Date, if different from initiated Date: [] Patient: Dayanna Stephens 58 y/o F admitted on 11/28/18 for Abdominal Pain. Chief Complaint: [patient continues to have significant abdominal distention. X-rays by CT shows dilated stomach duodenum and jejunum and ileum without an obs tructing point but with decompressed colon. I reviewed this with the radiologist and he cannot find a point of obstruction. Must have concern about potential obstruction of the ileocecal valve by the Parra's tube however it is not large enough to physically obstructing the bowel. The Parra's tube was hooked to intermittent suction and I will repeat x-rays in the morning. The tube may have to be removed. It is safe since his been in place for at least 2 weeks.] Objective Temp Pulse Resp BP Pulse Ox 98.7 F 111 H 16 128/72 97 12/19/18 12:00 12/19/18 04:20 12/19/18 12:00 12/19/18 12:00 12/19/18 12:00 - Additional Data Intake & Output - Last 24 hours: Intake & Output 12/17/18 12/18/18 12/19/18 12/20/18 05:59 05:59 05:59 05:59 Intake Total 1050 1240 5455 1100 Output Total 2280 957 7484 100 Balance -994 888 6006 1000 Weight 234 lb 8 oz 235 lb 9.6 oz 237 lb 3.2 oz 237 lb 3.2 oz - General physical appearance moderate distress, moderate pain, chronically ill - Eyes PERRL, normal ocular movement - ENT normal pinna, normal nares, normal mucosa, no hearing loss, no congestion - Neck no masses, no bruits, trachea midline, no lymphadenopathy, no venous distension - Respiratory normal expansion, normal respiratory effort, clear to auscultation - Cardiovascular Cardiovascular exam: Present: normal rate and rhythm, RRR, +S1, +S2, tachycardia. Absent: JVD - Abdomen tender, surgical scars (surgical scar is healed), distended ( moderate distention of entire abdomen noted) - Integumentary no rash, no growths, no abnormal pigmentation - Neurologic normal coordination, normal sensation - Musculoskeletal normal gait - Psychiatric oriented to time, oriented to person, oriented to place, speech is normal, memory intact - Labs 12/19/18 04:00 12/19/18 04:00 Diabetes panel 12/19/18 Range/Units 04:00 Sodium 138 (133-145) mmol/L Potassium 4.2 (3.3-5.1) mmol/L Chloride 99 (96-108) mmol/L Carbon Dioxide 29 (22-30) mmol/L BUN 18 (6-20) mg/dl Creatinine 0.8 (0.6-1.1) mg/dl Glucose 122 H (70-105) mg/dL Calcium 7.0 L (8.6-10.4) mg/dl AST 17 (0-37) U/l ALT 19 (0-40) U/l Alkaline Phosphatase 100 (39-117) U/L Total Protein 5.9 (5.9-8.4) gm/dL Albumin 3.1 L (3.2-5.2) gm/dL Triglycerides 136 (<150) mg/dl Thyroid panel 12/19/18 Range/Units 04:00 TSH 0.45 (0.27-5.01) uIU/ml Calcium panel 12/19/18 Range/Units 04:00 Calcium 7.0 L (8.6-10.4) mg/dl Phosphorus 2.5 L (2.7-4.5) mg/dL Albumin 3.1 L (3.2-5.2) gm/dL Pituitary panel 12/19/18 Range/Units 04:00 Sodium 138 (133-145) mmol/L Potassium 4.2 (3.3-5.1) mmol/L Chloride 99 (96-108) mmol/L Carbon Dioxide 29 (22-30) mmol/L BUN 18 (6-20) mg/dl Creatinine 0.8 (0.6-1.1) mg/dl Glucose 122 H (70-105) mg/dL Calcium 7.0 L (8.6-10.4) mg/dl TSH 0.45 (0.27-5.01) uIU/ml Adrenal panel 12/19/18 Range/Units 04:00 Sodium 138 (133-145) mmol/L Potassium 4.2 (3.3-5.1) mmol/L Chloride 99 (96-108) mmol/L Carbon Dioxide 29 (22-30) mmol/L BUN 18 (6-20) mg/dl Creatinine 0.8 (0.6-1.1) mg/dl Glucose 122 H (70-105) mg/dL Calcium 7.0 L (8.6-10.4) mg/dl Total Bilirubin 0.2 (0.0-1.0) mg/dL AST 17 (0-37) U/l ALT 19 (0-40) U/l Alkaline Phosphatase 100 (39-117) U/L Total Protein 5.9 (5.9-8.4) gm/dL Albumin 3.1 L (3.2-5.2) gm/dL Assessment and Plan (1) Chronic intestinal pseudo-obstruction Status: Acute Assessment and plan: Normal saline 150 cc Recheck labs in the morning Hook Parra's tube to suction Check abdominal x-rays in the morning Restart TPN Current Visit: Yes (2) Myasthenia gravis Status: Acute Current Visit: No - Time Spent With Patient Total time spent is greater than 50% in coordination of care (as documented) at patient's floor/unit and/or counseling patient:
[2018-12-19] MEDS ORDERED: [UNRECOGNIZED DRUG - REMARK] IV SCH (15:00)
[2018-12-19] MEDS: MEROPENEM 0.5 GM in 0.9 % SODIUM CHLORIDE 50 ML IV SCH (15:37)
[2018-12-19] MEDS: fentaNYL 100 MCG/2 ML VIAL IV PRN ×2 (15:38→20:50)
[2018-12-19] MEDS: methylPREDNISolone SOD SUCC 125 MG/2 ML VIAL IV SCH (20:51)
[2018-12-20] MEDS: fentaNYL 100 MCG/2 ML VIAL IV PRN ×6 (03:20→21:03)
[2018-12-20] MEDS: 0.9 % SODIUM CHLORIDE 1,000 ML IV SCH ×4 (04:05→14:05)
[2018-12-20 05:44] LABS: Basophils # (Auto) 0 K/mcL (0.0-0.3); Basophils % (Auto) 0.2 % (0.0-2.0); Eosinophils # (Auto) 0 K/mcL (0.0-0.7); Eosinophils % (Auto) 0 % (0.0-7.0); Granulocytes % (Auto) 85.4 % (38.0-78.0); Lymphocytes # (Auto) 0.5 K/mcL (1.5-4.8); Lymphocytes % (Auto) 12.5 % (15.5-49.0); Mean Corpuscular HGB Conc 31.4 g/dL (31.0-36.0); Monocytes # (Auto) 0.1 K/mcL (0.1-0.9); Monocytes % (Auto) 1.9 % (1.0-12.0); Platelet Count 386 K/mcL (140-440); RBC 3.99 M/mcL (4.00-5.20); Red Cell Distribution Width 19.9 % (11.5-14.5)
[2018-12-20 06:04] LABS: ALT/SGPT 18 U/l (0-40); Albumin 3.1 gm/dL (3.2-5.2); Albumin/Globulin Ratio 1.2 (1.0-2.3); Alkaline Phosphatase 92 U/L (39-117); Bilirubin,Direct < 0.2 mg/dL (0.0-0.3); Blood Urea Nitrogen 11 mg/dl (6-20); Gamma Glutamyl Transpeptidase 19 U/L (5-36); Uric Acid 3.7 mg/dL (2.5-8.0)
[2018-12-20] MEDS: LEVOTHYROXINE 125 MCG TABLET PO SCH ×2 (07:04→09:06)
[2018-12-20] MEDS: PANTOPRAZOLE 40 MG VIAL IV SCH ×2 (07:04→17:27)
[2018-12-20] MEDS: METHYLNALTREXONE BROMIDE 12 MG/0.6 ML SYRINGE SQ SCH (09:04)
[2018-12-20] MEDS: methylPREDNISolone SOD SUCC 125 MG/2 ML VIAL IV SCH ×2 (09:05→20:18)
[2018-12-20] MEDS: MEROPENEM 0.5 GM in 0.9 % SODIUM CHLORIDE 50 ML IV SCH (09:05)
[2018-12-20] MEDS: DULoxetine 30 MG CAPSULE PO SCH ×2 (09:06→20:17)
[2018-12-20] MEDS: MAGNESIUM OXIDE 400 MG TABLET PO SCH ×3 (09:06→20:17)
[2018-12-20] MEDS ORDERED: DEXTROSE 50% 50 ML VIAL IV PRN (12:35)
[2018-12-20] MEDS ORDERED: MAGNESIUM HYDROXIDE 30 ML ORAL.SUSP PO PRN (13:24)
--- NOTE | 2018-12-20 13:31 | General Surgery Progress Note ---
Subjective Patient reports: still having pain, pain is less, no flatus, no bowel movement, afebrile Narrative: Note initiated : 12/20/18 at 1:29 pm Service Date, if different from initiated Date: [] Patient: Dayanna Stephens 58 y/o F admitted on 11/28/18 for Abdominal Pain. Chief Complaint: [patient has been stable but she has not had any output through her stoma for the past 24 hours. X-rays shows some decompression and small bowel gas however her stomach is still dilated and there is no movement of the contrast from her colon. Clinically her abdomen is softer and less distended. She states that she does not have pain.] Objective Temp Pulse Resp BP Pulse Ox 98.9 F 84 12 148/92 92 12/20/18 11:58 12/20/18 03:20 12/20/18 11:58 12/20/18 11:58 12/20/18 11:58 - Additional Data Intake & Output - Last 24 hours: Intake & Output 12/18/18 12/19/18 12/20/18 12/21/18 05:59 05:59 05:59 06:59 Intake Total 1240 5455 3700 1720 Output Total 965 3340 6425 1650 Balance 275 2115 -2725 70 Weight 235 lb 9.6 oz 237 lb 3.2 oz 2335 lb 3.2 oz 233 lb 3.2 oz - General physical appearance no pain, chronically ill - Eyes PERRL, normal ocular movement - ENT normal pinna, normal nares, normal mucosa, no hearing loss, no congestion - Neck no masses, no bruits, trachea midline, no lymphadenopathy, no venous distension - Respiratory normal expansion, normal respiratory effort, clear to auscultation - Cardiovascular Cardiovascular exam: Present: normal rate and rhythm, RRR, +S1, +S2. Absent: JVD, tachycardia - Abdomen non tender, bowel sounds (bowel sounds are active), surgical scars (none), masses (none) - Integumentary no rash, no growths, no abnormal pigmentation - Neurologic normal coordination - Musculoskeletal normal gait, normal posture - Psychiatric oriented to time, oriented to person, oriented to place, speech is normal, memory intact - Labs 12/20/18 04:00 12/20/18 04:00 Diabetes panel 12/20/18 Range/Units 04:00 Sodium 143 (133-145) mmol/L Potassium 4.3 (3.3-5.1) mmol/L Chloride 105 (96-108) mmol/L Carbon Dioxide 30 (22-30) mmol/L BUN 11 (6-20) mg/dl Creatinine 0.6 (0.6-1.1) mg/dl Glucose 246 H (70-105) mg/dL Calcium 6.9 L (8.6-10.4) mg/dl AST 14 (0-37) U/l ALT 18 (0-40) U/l Alkaline Phosphatase 92 (39-117) U/L Total Protein 5.6 L (5.9-8.4) gm/dL Albumin 3.1 L (3.2-5.2) gm/dL Triglycerides 93 (<150) mg/dl Calcium panel 12/20/18 Range/Units 04:00 Calcium 6.9 L (8.6-10.4) mg/dl Phosphorus 4.1 (2.7-4.5) mg/dL Albumin 3.1 L (3.2-5.2) gm/dL Pituitary panel 12/20/18 Range/Units 04:00 Sodium 143 (133-145) mmol/L Potassium 4.3 (3.3-5.1) mmol/L Chloride 105 (96-108) mmol/L Carbon Dioxide 30 (22-30) mmol/L BUN 11 (6-20) mg/dl Creatinine 0.6 (0.6-1.1) mg/dl Glucose 246 H (70-105) mg/dL Calcium 6.9 L (8.6-10.4) mg/dl Adrenal panel 12/20/18 Range/Units 04:00 Sodium 143 (133-145) mmol/L Potassium 4.3 (3.3-5.1) mmol/L Chloride 105 (96-108) mmol/L Carbon Dioxide 30 (22-30) mmol/L BUN 11 (6-20) mg/dl Creatinine 0.6 (0.6-1.1) mg/dl Glucose 246 H (70-105) mg/dL Calcium 6.9 L (8.6-10.4) mg/dl Total Bilirubin < 0.2 (0.0-1.0) mg/dL AST 14 (0-37) U/l ALT 18 (0-40) U/l Alkaline Phosphatase 92 (39-117) U/L Total Protein 5.6 L (5.9-8.4) gm/dL Albumin 3.1 L (3.2-5.2) gm/dL Assessment and Plan (1) Chronic intestinal pseudo-obstruction Status: Acute Assessment and plan: Normal saline 150 cc Recheck labs in the morning Clamp Parra's tube Check abdominal x-rays in the morning Milk of magnesia 4 times daily Dulcolax 10 mg twice daily Current Visit: Yes (2) Myasthenia gravis Status: Acute Current Visit: No - Time Spent With Patient Total time spent is greater than 50% in coordination of care (as documented) at patient's floor/unit and/or counseling patient:
--- NOTE | 2018-12-20 14:21 | XRay Report ---
HISTORY: Follow-up small bowel obstruction and abdominal pain FINDINGS: Patient still has retained contrast in the small intestine and predominantly in the ascending colon following the recent small bowel follow-through. There are several air-fluid levels within the stomach large and small intestine. The small intestine is less distended today than was on yesterday's CT scan. Stomach is highly distended. No free intra-abdominal air is present. IMPRESSION: Ileus with improvement dilatation of the small intestine. Markedly delayed transit of contrast through the large and small intestine following the recent small bowel follow-through Interpreted and Authenticated by: Zay Juarez 12/20/18
[2018-12-20] MEDS: ACETAMINOPHEN 1,000 MG/100 ML BOTTLE IV PRN ×2 (14:37→23:34)
[2018-12-20] MEDS ORDERED: [UNRECOGNIZED DRUG - REMARK] IV SCH (15:00)
[2018-12-20] MEDS: MAGNESIUM HYDROXIDE 30 ML ORAL.SUSP PO SCH ×2 (15:07→20:20)
[2018-12-20] MEDS: INSULIN LISPRO 1 UNIT/0.01 ML UNIT SQ SCH ×2 (18:01→23:46)
[2018-12-20] MEDS: POLYETHYLENE GLYCOL 3350 17 GM PACKET PO SCH (20:17)
[2018-12-20] MEDS: BISACODYL 5 MG TABLET PO SCH (20:17)
[2018-12-21] MEDS: fentaNYL 100 MCG/2 ML VIAL IV PRN ×7 (01:18→22:45)
[2018-12-21] MEDS: MAGNESIUM HYDROXIDE 30 ML ORAL.SUSP PO SCH ×2 (03:33→08:20)
[2018-12-21] MEDS: 0.9 % SODIUM CHLORIDE 1,000 ML IV SCH ×2 (03:35→17:38)
[2018-12-21 05:01] LABS: Basophils # (Auto) 0 K/mcL (0.0-0.3); Basophils % (Auto) 0.2 % (0.0-2.0); Eosinophils # (Auto) 0 K/mcL (0.0-0.7); Eosinophils % (Auto) 0.3 % (0.0-7.0); Granulocytes % (Auto) 86.4 % (38.0-78.0); Lymphocytes # (Auto) 0.6 K/mcL (1.5-4.8); Lymphocytes % (Auto) 9.6 % (15.5-49.0); Mean Cell Volume 80.9 fL (80.0-100.0); Mean Corpuscular HGB Conc 31.7 g/dL (31.0-36.0); Monocytes # (Auto) 0.2 K/mcL (0.1-0.9); Monocytes % (Auto) 3.5 % (1.0-12.0); Platelet Count 412 K/mcL (140-440); RBC 3.85 M/mcL (4.00-5.20); Red Cell Distribution Width 20.4 % (11.5-14.5)
[2018-12-21] MEDS: INSULIN LISPRO 1 UNIT/0.01 ML UNIT SQ SCH ×4 (05:09→23:18)
[2018-12-21 05:31] LABS: ALT/SGPT 17 U/l (0-40); Albumin/Globulin Ratio 1.2 (1.0-2.3); Alkaline Phosphatase 87 U/L (39-117); Bilirubin,Direct < 0.2 mg/dL (0.0-0.3); Blood Urea Nitrogen 17 mg/dl (6-20); Gamma Glutamyl Transpeptidase 15 U/L (5-36); Uric Acid 2.9 mg/dL (2.5-8.0)
[2018-12-21] MEDS: PANTOPRAZOLE 40 MG VIAL IV SCH ×2 (08:00→16:52)
[2018-12-21] MEDS: methylPREDNISolone SOD SUCC 125 MG/2 ML VIAL IV SCH ×2 (08:00→21:22)
[2018-12-21] MEDS: POLYETHYLENE GLYCOL 3350 17 GM PACKET PO SCH (08:01)
[2018-12-21] MEDS: MAGNESIUM OXIDE 400 MG TABLET PO SCH (08:02)
[2018-12-21] MEDS: DULoxetine 30 MG CAPSULE PO SCH ×2 (08:02→21:22)
[2018-12-21] MEDS: LEVOTHYROXINE 125 MCG TABLET PO SCH (08:02)
[2018-12-21] MEDS: BISACODYL 5 MG TABLET PO SCH (08:02)
[2018-12-21] MEDS: METHYLNALTREXONE BROMIDE 12 MG/0.6 ML SYRINGE SQ SCH (08:21)
[2018-12-21] MEDS: MEROPENEM 0.5 GM in 0.9 % SODIUM CHLORIDE 50 ML IV SCH (08:21)
--- NOTE | 2018-12-21 09:50 | XRay Report ---
HISTORY: Abdominal pain, intestinal dysmotility, follow-up bowel obstruction FINDINGS: There is still a moderate amount retained contrast in the cecum and ascending colon and a smaller amount of retained contrast in the small bowel. The percutaneous catheter which was placed in the small intestine remains located with the tip in left upper quadrant. There is residual contrast within this segment of jejunum. There are several air-fluid levels. Some of the loops of small bowel are moderately dilated. There is also a large amount gas within air-fluid level in the stomach. The caliber of the small bowel has not changed significantly. IMPRESSION: No significant change with persistent ileus pattern Interpreted and Authenticated by: Zay Juarez 12/21/18
--- NOTE | 2018-12-21 13:25 | General Surgery Progress Note ---
Subjective Patient reports: still having pain, no flatus, no bowel movement, nausea, afebrile Narrative: Note initiated : 12/21/18 at 1:23 pm Service Date, if different from initiated Date: [] Patient: Dayanna Stephens 58 y/o F admitted on 11/28/18 for Abdominal Pain. Chief Complaint: [patient has had laxatives and MiraLAX for 24 hours without any output. Her stomach remains dilated and duodenum and jejunum aren't significantly dilated. There is not been any passage of contrast through her colon. Discussed with her the need to proceed with total colectomy. She is agreeable for this. This is her final option. She will be placed back on suction. The Parra's tube and will be scheduled for total colectomy tomorrow. She understands that this will maintain a permanent ileostomy.] Objective Temp Pulse Resp BP Pulse Ox 98.8 F 78 16 170/98 96 12/21/18 12:00 12/21/18 03:30 12/21/18 12:00 12/21/18 12:00 12/21/18 12:00 - Additional Data Intake & Output - Last 24 hours: Intake & Output 12/19/18 12/20/18 12/21/18 12/22/18 04:59 04:59 05:59 05:59 Intake Total 300 Output Total 1400 Balance -1100 Weight - General physical appearance well developed, well nourished, no distress, chronically ill - Eyes PERRL, normal ocular movement - ENT normal pinna, normal nares, normal mucosa, no hearing loss, no congestion - Neck no masses, no bruits, trachea midline, no lymphadenopathy, no venous distension - Respiratory normal expansion, normal respiratory effort, clear to auscultation - Cardiovascular Cardiovascular exam: Present: normal rate and rhythm, +S1, +S2, tachycardia. Absent: JVD - Abdomen distended ( only makes a lot of no) - Integumentary no rash, no growths, no abnormal pigmentation - Neurologic normal coordination, normal sensation - Musculoskeletal normal gait, normal posture - Psychiatric oriented to time, oriented to person, oriented to place, speech is normal, me meir intact - Labs 12/21/18 04:00 12/21/18 04:00 Diabetes panel 12/21/18 Range/Units 04:00 Sodium 140 (133-145) mmol/L Potassium 4.0 (3.3-5.1) mmol/L Chloride 99 (96-108) mmol/L Carbon Dioxide 32 H (22-30) mmol/L BUN 17 (6-20) mg/dl Creatinine 0.8 (0.6-1.1) mg/dl Glucose 228 H (70-105) mg/dL Calcium 7.4 L (8.6-10.4) mg/dl AST 13 (0-37) U/l ALT 17 (0-40) U/l Alkaline Phosphatase 87 (39-117) U/L Total Protein 5.6 L (5.9-8.4) gm/dL Albumin 3.0 L (3.2-5.2) gm/dL Triglycerides 144 (<150) mg/dl Calcium panel 12/21/18 Range/Units 04:00 Calcium 7.4 L (8.6-10.4) mg/dl Phosphorus 3.4 (2.7-4.5) mg/dL Albumin 3.0 L (3.2-5.2) gm/dL Pituitary panel 12/21/18 Range/Units 04:00 Sodium 140 (133-145) mmol/L Potassium 4.0 (3.3-5.1) mmol/L Chloride 99 (96-108) mmol/L Carbon Dioxide 32 H (22-30) mmol/L BUN 17 (6-20) mg/dl Creatinine 0.8 (0.6-1.1) mg/dl Glucose 228 H (70-105) mg/dL Calcium 7.4 L (8.6-10.4) mg/dl Adrenal panel 12/21/18 Range/Units 04:00 Sodium 140 (133-145) mmol/L Potassium 4.0 (3.3-5.1) mmol/L Chloride 99 (96-108) mmol/L Carbon Dioxide 32 H (22-30) mmol/L BUN 17 (6-20) mg/dl Creatinine 0.8 (0.6-1.1) mg/dl Glucose 228 H (70-105) mg/dL Calcium 7.4 L (8.6-10.4) mg/dl Total Bilirubin < 0.2 (0.0-1.0) mg/dL AST 13 (0-37) U/l ALT 17 (0-40) U/l Alkaline Phosphatase 87 (39-117) U/L Total Protein 5.6 L (5.9-8.4) gm/dL Albumin 3.0 L (3.2-5.2) gm/dL Assessment and Plan (1) Chronic intestinal pseudo-obstruction Status: Acute Assessment and plan: Normal saline 150 cc Recheck labs in the morning Hook Parra's tube to suction nothing by mouth after midnight scheduled for total colectomy with ileostomy tomorrow type and cross for 2 units of packed red cells have new IJ catheter placed on the left side tomorrow Current Visit: Yes (2) Myasthenia gravis Status: Acute Current Visit: No - Time Spent With Patient Total time spent is greater than 50% in coordination of care (as documented) at patient's floor/unit and/or counseling patient:
[2018-12-21] MEDS ORDERED: 0.9 % SODIUM CHLORIDE 250 ML IV SCH (13:30)
[2018-12-21] MEDS ORDERED: [UNRECOGNIZED DRUG - REMARK] IV SCH (15:00)
[2018-12-21] MEDS ORDERED: ALPRAZolam 0.5 MG TABLET PO PRN (15:31)
[2018-12-22] MEDS: fentaNYL 100 MCG/2 ML VIAL IV PRN ×12 (03:19→23:35)
[2018-12-22] MEDS: INSULIN LISPRO 1 UNIT/0.01 ML UNIT SQ SCH ×3 (06:28→22:28)
[2018-12-22] MEDS ORDERED: LEVOTHYROXINE 100 MCG VIAL IV SCH (07:30)
[2018-12-22] MEDS: 0.9 % SODIUM CHLORIDE 1,000 ML IV SCH ×3 (07:32→22:29)
[2018-12-22] MEDS: PANTOPRAZOLE 40 MG VIAL IV SCH ×2 (07:33→22:27)
[2018-12-22 08:21] LABS: Basophils # (Auto) 0 K/mcL (0.0-0.3); Basophils % (Auto) 0 % (0.0-2.0); Eosinophils # (Auto) 0 K/mcL (0.0-0.7); Eosinophils % (Auto) 0 % (0.0-7.0); Granulocytes % (Auto) 88.6 % (38.0-78.0); Lymphocytes # (Auto) 0.5 K/mcL (1.5-4.8); Lymphocytes % (Auto) 7.7 % (15.5-49.0); Mean Cell Volume 81.2 fL (80.0-100.0); Mean Corpuscular HGB Conc 31.5 g/dL (31.0-36.0); Monocytes # (Auto) 0.3 K/mcL (0.1-0.9); Monocytes % (Auto) 3.7 % (1.0-12.0); Platelet Count 372 K/mcL (140-440); RBC 3.97 M/mcL (4.00-5.20)
[2018-12-22 08:41] LABS: ALT/SGPT 22 U/l (0-40); Albumin/Globulin Ratio 1.1 (1.0-2.3); Alkaline Phosphatase 86 U/L (39-117); Bilirubin,Direct < 0.2 mg/dL (0.0-0.3); Blood Urea Nitrogen 21 mg/dl (6-20); Gamma Glutamyl Transpeptidase 16 U/L (5-36); Uric Acid 2.1 mg/dL (2.5-8.0)
--- NOTE | 2018-12-22 09:00 | XRay Report ---
CLINICAL INFORMATION: pre op COMPARISON: 12/21/2018 FINDINGS: The stomach and multiple loops of small bowel and residual large bowel are mildly dilated with scattered air-fluid levels. Pattern is nonspecific but most compatible with postoperative ileus. No significant change from the previous x-ray. Drains in stable position. No free air IMPRESSION: Moderate ileus - stable Interpreted and Authenticated by: All Lundberg 12/22/18
--- NOTE | 2018-12-22 09:01 | XRay Report ---
CLINICAL INFORMATION: pre op and possible bronchitis COMPARISON: 12/19/2018 FINDINGS: Heart size, mediastinum and pulmonary vessels are normal. Right IJ line and left subclavian Port-A-Cath in stable satisfactory position. No infiltrates. Mild chronic elevation right diaphragm seen - as before. No effusions IMPRESSION: No acute disease - stable Interpreted and Authenticated by: All Lundberg 12/22/18
[2018-12-22] MEDS: METHYLNALTREXONE BROMIDE 12 MG/0.6 ML SYRINGE SQ SCH (09:42)
[2018-12-22] MEDS: MEROPENEM 0.5 GM in 0.9 % SODIUM CHLORIDE 50 ML IV SCH (09:43)
[2018-12-22] MEDS: methylPREDNISolone SOD SUCC 125 MG/2 ML VIAL IV SCH ×2 (09:43→21:19)
[2018-12-22] MEDS: DULoxetine 30 MG CAPSULE PO SCH (09:44)
[2018-12-22] MEDS ORDERED: IPRATROPIUM/ALBUTEROL 3 ML AMPUL.NEB NEB ONE (10:17)
[2018-12-22] MEDS ORDERED: PIPERACILLIN SODIUM/TAZOBACTAM 3.375 GM in DEXTROSE 5% IN WATER 50 ML IV SCH (11:45)
[2018-12-22] MEDS ORDERED: KETAMINE 100 MG/ML ML IV ONE (12:15)
[2018-12-22] MEDS ORDERED: fentaNYL 250 MCG/5 ML VIAL IV ONE (12:15)
[2018-12-22] MEDS ORDERED: SUGAMMADEX SODIUM 200 MG/2 ML VIAL IV ONE (12:15)
[2018-12-22] MEDS ORDERED: ROCURONIUM 10 MG/ML ML IV ONE (12:15)
[2018-12-22] MEDS ORDERED: LIDOCAINE HCL/PF 100 MG/5 ML SYRINGE IV ONE (12:15)
[2018-12-22] MEDS ORDERED: methylPREDNISolone SOD SUCC 125 MG/2 ML VIAL IV ONE (12:15)
[2018-12-22] MEDS ORDERED: PROPOFOL 200 MG/20 ML VIAL IV ONE (12:15)
[2018-12-22] MEDS ORDERED: METOPROLOL TARTRATE 5 MG/5 ML VIAL IV ONE (12:15)
[2018-12-22] MEDS ORDERED: MIDAZOLAM 5 MG/5 ML VIAL IV ONE (12:15)
[2018-12-22] MEDS ORDERED: VECURONIUM BROMIDE 10 MG VIAL IV ONE (12:15)
--- NOTE | 2018-12-22 12:33 | XRay Report ---
CLINICAL INFORMATION: ng placement COMPARISON: None. FINDINGS: NG tube overlies the gastric body and satisfactory position. The stool gas pattern appears unremarkable. No gross free air or soft tissue mass. Surgical kori present at midline. Drain is unchanged in position IMPRESSION: No acute disease. NG satisfactory position the gastric body Interpreted and Authenticated by: All Lundberg 12/22/18
[2018-12-22] MEDS ORDERED: 0.9 % SODIUM CHLORIDE 10 ML SYRINGE IV PRN ×2 (14:15→18:36)
--- NOTE | 2018-12-22 14:21 | Procedure Note ---
Procedures - Central Line Placement Left IJ Consent obtained: verbal consent, written consent Date of Procedure: 12/22/18 Time out performed: Yes Patient placed on monitor/pulse ox: Yes MD prep: mask, sterile gown, sterile gloves, cap, other Central line prep: 2% Chlorhexidine scrub, large sterile drapes applied, proper hand hygiene Ultrasound used for placement: Yes Central line lumen inserted: quad, 16 cm Post procedure: sutured in place, good blood return, all ports aspirated, flushed, capped, sterile dressing applied Patient tolerated procedure: well (CVL placed per SRNA, no complications noted. after all ports aspirated and flushed R IJ pulled and pressure applied.)
[2018-12-22] MEDS ORDERED: PIPERACILLIN SODIUM/TAZOBACTAM 3.375 GM in DEXTROSE 5% IN WATER 50 ML IV ONE (14:58)
[2018-12-22] MEDS ORDERED: [UNRECOGNIZED DRUG - REMARK] IV SCH (15:00)
[2018-12-22] MEDS ORDERED: ATROPINE SULFATE 0.4 MG/ML VIAL IV PRN (16:19)
[2018-12-22] MEDS ORDERED: HYDROmorphone 2 MG/ML VIAL IV PRN (16:19)
[2018-12-22] MEDS ORDERED: ePHEDrine 50 MG/ML AMPUL IV PRN (16:19)
[2018-12-22] MEDS ORDERED: MEPERIDINE 25 MG/ML SYRINGE IV PRN (16:19)
[2018-12-22] MEDS ORDERED: PROMETHAZINE 25 MG/ML VIAL IV PRN ×2 (16:19→18:36)
[2018-12-22] MEDS ORDERED: FLUMAZENIL 0.1 MG/ML ML IV PRN (16:19)
[2018-12-22] MEDS ORDERED: diphenhydrAMINE 50 MG/ML VIAL IV PRN (16:19)
[2018-12-22] MEDS ORDERED: METHOCARBAMOL 1,000 MG/10 ML VIAL IV PRN (16:19)
[2018-12-22] MEDS ORDERED: PROMETHAZINE 25 MG/ML VIAL IM PRN (16:19)
[2018-12-22] MEDS ORDERED: NALOXONE HCL 0.4 MG/ML VIAL IV PRN (16:19)
[2018-12-22] MEDS ORDERED: IPRATROPIUM/ALBUTEROL 3 ML AMPUL.NEB NEB PRN (16:19)
[2018-12-22] MEDS ORDERED: ONDANSETRON 4 MG/2 ML VIAL IV PRN (16:19)
[2018-12-22] MEDS ORDERED: LACTATED RINGERS 1,000 ML IV SCH (16:30)
--- NOTE | 2018-12-22 17:13 | Brief Operative Note ---
Date of procedure: 12/22/18 Pre-op diagnosis: colonic pseudoobstruction;small bowel obstruction Post-op diagnosis: other (extensive peritoneal adhesions with small bowel obstruction;colonic pseudoobstruction) Procedure: exploratory laparotomy with total bowel adhesiolysis ; total colectomy with ileostomy Grafts/Implants: No Anesthesia: GETA Findings: near total involvement of small bowel and colon with adhesions dilated colon with flaccid state Complications: none Surgeon: Bertha Currie Estimated blood loss (cc): 200 Specimens Removed/Pathology: other (total colon with stoma segment) Condition: stable Disposition: PACU
[2018-12-22] MEDS ORDERED: fentaNYL 100 MCG/2 ML VIAL IV PRN (17:32)
[2018-12-22] MEDS: METOPROLOL TARTRATE 5 MG/5 ML VIAL IV PRN ×2 (17:54→18:06)
[2018-12-22] MEDS ORDERED: TPN PER PHARMACY IV SCH (18:36)
[2018-12-22] MEDS ORDERED: BENZOCAINE 1 SPRAY BOTTLE TOPICAL PRN (18:36)
[2018-12-22] MEDS ORDERED: ACETAMINOPHEN 1,000 MG/100 ML BOTTLE IV PRN (18:36)
[2018-12-22] MEDS ORDERED: BENZOCAINE/MENTHOL 1 LOZENGE PO PRN (18:36)
[2018-12-22] MEDS ORDERED: DEXTROSE 50% 50 ML VIAL IV PRN (18:36)
--- NOTE | 2018-12-22 18:37 | XRay Report ---
CLINICAL INFORMATION: central line COMPARISON: 12/22/2018 FINDINGS: Right-sided central line has been removed. There is a new left IJ central line overlying the left brachiocephalic IJ junction. Left-sided Port-A-Cath and NG tube are in satisfactory position. Cardiomediastinal silhouette and pulmonary vessels are normal. Lungs are clear. Elevation of the right diaphragm seen as before. IMPRESSION: No acute disease. Left IJ line in satisfactory position. Interpreted and Authenticated by: All Lundberg 12/22/18
[2018-12-22] MEDS: [UNRECOGNIZED DRUG - REMARK] IV SCH (19:29)
[2018-12-22] MEDS: IPRATROPIUM/ALBUTEROL 3 ML AMPUL.NEB NEB SCH (19:43)
[2018-12-22] MEDS: ACETAMINOPHEN 1,000 MG/100 ML BOTTLE IV SCH (19:50)
[2018-12-22] MEDS ORDERED: 0.9 % SODIUM CHLORIDE 10 ML SYRINGE IV SCH (21:00)
[2018-12-23] MEDS: fentaNYL 100 MCG/2 ML VIAL IV PRN ×6 (00:36→07:12)
[2018-12-23] MEDS: INSULIN LISPRO 1 UNIT/0.01 ML UNIT SQ SCH ×5 (00:45→23:46)
[2018-12-23] MEDS: IPRATROPIUM/ALBUTEROL 3 ML AMPUL.NEB NEB SCH ×4 (00:46→18:48)
[2018-12-23] MEDS: 0.9 % SODIUM CHLORIDE 10 ML SYRINGE IV SCH ×3 (00:47→21:49)
[2018-12-23] MEDS: ACETAMINOPHEN 1,000 MG/100 ML BOTTLE IV SCH ×5 (01:10→23:48)
[2018-12-23 05:54] LABS: Basophils # (Auto) 0 K/mcL (0.0-0.3); Basophils % (Auto) 0 % (0.0-2.0); Eosinophils # (Auto) 0 K/mcL (0.0-0.7); Eosinophils % (Auto) 0 % (0.0-7.0); Granulocytes % (Auto) 83.9 % (38.0-78.0); Lymphocytes # (Auto) 0.5 K/mcL (1.5-4.8); Mean Cell Volume 81.9 fL (80.0-100.0); Monocytes # (Auto) 1.2 K/mcL (0.1-0.9); Monocytes % (Auto) 11.1 % (1.0-12.0); Platelet Count 352 K/mcL (140-440); RBC 3.69 M/mcL (4.00-5.20); Red Cell Distribution Width 19.8 % (11.5-14.5)
[2018-12-23 06:24] LABS: ALT/SGPT 56 U/l (0-40); Albumin 2.8 gm/dL (3.2-5.2); Albumin/Globulin Ratio 1.3 (1.0-2.3); Alkaline Phosphatase 74 U/L (39-117); Bilirubin,Direct < 0.2 mg/dL (0.0-0.3); Blood Urea Nitrogen 20 mg/dl (6-20); Gamma Glutamyl Transpeptidase 12 U/L (5-36)
[2018-12-23] MEDS: PANTOPRAZOLE 40 MG VIAL IV SCH ×2 (07:16→18:00)
[2018-12-23] MEDS: LORazepam 2 MG/ML VIAL IV PRN ×3 (08:01→22:00)
[2018-12-23] MEDS: LEVOTHYROXINE 100 MCG VIAL IV SCH (08:01)
[2018-12-23] MEDS: HYDROmorphone 2 MG/ML VIAL IV PRN ×9 (08:24→23:31)
[2018-12-23] MEDS: methylPREDNISolone SOD SUCC 125 MG/2 ML VIAL IV SCH ×2 (09:42→21:47)
[2018-12-23] MEDS: MEROPENEM 0.5 GM in 0.9 % SODIUM CHLORIDE 50 ML IV SCH (09:43)
[2018-12-23] MEDS: 0.9 % SODIUM CHLORIDE 1,000 ML IV SCH (14:34)
--- NOTE | 2018-12-23 14:43 | General Surgery Progress Note ---
Subjective Patient reports: still having pain, no flatus, no bowel movement, afebrile Narrative: Note initiated : 12/23/18 at 2:41 pm Service Date, if different from initiated Date: [] Patient: Dayanna Stephens 58 y/o F admitted on 11/28/18 for Abdominal Pain. Chief Complaint: [patient is alert and aware. Her major problem now is pain control. She has better results with Dilaudid and we will continue that. She had increase tachycardia but that is improved since her pain is better controlled. Blood pressure remained stable and she is afebrile. White blood count 11, hemoglobin 9.4, potassium 4, BUN 20, creatinine 0.9.] Objective Temp Pulse Resp BP Pulse Ox 98.8 F 115 H 18 146/81 92 12/23/18 12:00 12/23/18 12:00 12/23/18 12:00 12/23/18 12:00 12/23/18 12:00 - Additional Data Intake & Output - Last 24 hours: Intake & Output 12/21/18 12/22/18 12/23/18 12/24/18 05:59 05:59 05:59 05:59 Intake Total 2270 4800 1137 Output Total 5200 5050 Balance -2930 -250 1137 Weight 236 lb 14.4 oz 236 lb 14.4 oz - General physical appearance severe pain, chronically ill - Eyes PERRL, normal ocular movement - ENT normal pinna, normal nares, normal mucosa, no hearing loss, no congestion - Neck no masses, no bruits, trachea midline, no lymphadenopathy, no venous distension - Respiratory normal expansion, normal respiratory effort, other (few scattered rhonchi bilaterally) - Cardiovascular Cardiovascular exam: Present: normal rate and rhythm, RRR, +S1, +S2, tachycardia. Absent: JVD - Abdomen tender ( diffusely tender abdomen; incisions are unremarkable; few active bowel sounds) - Integumentary no rash, no growths, no abnormal pigmentation - Neurologic normal coordination, normal sensation - Psychiatric oriented to time, oriented to person, oriented to place, speech is normal, memory intact - Labs 12/23/18 04:06 12/23/18 04:06 Diabetes panel 12/23/18 Range/Units 04:06 Sodium 140 (133-145) mmol/L Potassium 4.0 (3.3-5.1) mmol/L Chloride 102 (96-108) mmol/L Carbon Dioxide 26 (22-30) mmol/L BUN 20 (6-20) mg/dl Creatinine 0.9 (0.6-1.1) mg/dl Glucose 281 H (70-105) mg/dL Calcium 7.0 L (8.6-10.4) mg/dl AST 49 H (0-37) U/l ALT 56 H (0-40) U/l Alkaline Phosphatase 74 (39-117) U/L Total Protein 5.0 L (5.9-8.4) gm/dL Albumin 2.8 L (3.2-5.2) gm/dL Triglycerides 214 H (<150) mg/dl Calcium panel 12/23/18 Range/Units 04:06 Calcium 7.0 L (8.6-10.4) mg/dl Phosphorus 2.9 (2.7-4.5) mg/dL Albumin 2.8 L (3.2-5.2) gm/dL Pituitary panel 12/23/18 Range/Units 04:06 Sodium 140 (133-145) mmol/L Potassium 4.0 (3.3-5.1) mmol/L Chloride 102 (96-108) mmol/L Carbon Dioxide 26 (22-30) mmol/L BUN 20 (6-20) mg/dl Creatinine 0.9 (0.6-1.1) mg/dl Glucose 281 H (70-105) mg/dL Calcium 7.0 L (8.6-10.4) mg/dl Adrenal panel 12/23/18 Range/Units 04:06 Sodium 140 (133-145) mmol/L Potassium 4.0 (3.3-5.1) mmol/L Chloride 102 (96-108) mmol/L Carbon Dioxide 26 (22-30) mmol/L BUN 20 (6-20) mg/dl Creatinine 0.9 (0.6-1.1) mg/dl Glucose 281 H (70-105) mg/dL Calcium 7.0 L (8.6-10.4) mg/dl Total Bilirubin < 0.2 (0.0-1.0) mg/dL AST 49 H (0-37) U/l ALT 56 H (0-40) U/l Alkaline Phosphatase 74 (39-117) U/L Total Protein 5.0 L (5.9-8.4) gm/dL Albumin 2.8 L (3.2-5.2) gm/dL Assessment and Plan (1) Chronic intestinal pseudo-obstruction Status: Acute Assessment and plan: Normal saline 150 cc Recheck labs in the morning Chest x-ray in the morning Current Visit: Yes (2) Myasthenia gravis Status: Acute Current Visit: No - Time Spent With Patient Total time spent is greater than 50% in coordination of care (as documented) at patient's floor/unit and/or counseling patient:
[2018-12-23] MEDS ORDERED: [UNRECOGNIZED DRUG - REMARK] IV SCH (15:00)
[2018-12-23] MEDS: [UNRECOGNIZED DRUG - REMARK] IV SCH (15:51)
[2018-12-24] MEDS: HYDROmorphone 2 MG/ML VIAL IV PRN ×15 (00:48→23:15)
[2018-12-24] MEDS: IPRATROPIUM/ALBUTEROL 3 ML AMPUL.NEB NEB SCH ×4 (01:40→19:50)
[2018-12-24] MEDS: LORazepam 2 MG/ML VIAL IV PRN (05:11)
[2018-12-24 05:57] LABS: Basophils # (Auto) 0 K/mcL (0.0-0.3); Basophils % (Auto) 0.2 % (0.0-2.0); Eosinophils # (Auto) 0 K/mcL (0.0-0.7); Eosinophils % (Auto) 0.2 % (0.0-7.0); Granulocytes % (Auto) 74.3 % (38.0-78.0); Lymphocytes # (Auto) 1.8 K/mcL (1.5-4.8); Lymphocytes % (Auto) 14.4 % (15.5-49.0); Mean Cell Volume 81.7 fL (80.0-100.0); Mean Corpuscular HGB Conc 31.2 g/dL (31.0-36.0); Monocytes # (Auto) 1.3 K/mcL (0.1-0.9); Monocytes % (Auto) 10.9 % (1.0-12.0); Platelet Count 265 K/mcL (140-440); RBC 3.23 M/mcL (4.00-5.20)
[2018-12-24] MEDS: ACETAMINOPHEN 1,000 MG/100 ML BOTTLE IV SCH ×4 (06:04→23:51)
[2018-12-24] MEDS: INSULIN LISPRO 1 UNIT/0.01 ML UNIT SQ SCH ×4 (06:12→23:14)
[2018-12-24 06:49] LABS: ALT/SGPT 35 U/l (0-40); Albumin 2.4 gm/dL (3.2-5.2); Albumin/Globulin Ratio 0.9 (1.0-2.3); Alkaline Phosphatase 88 U/L (39-117); Bilirubin,Direct < 0.2 mg/dL (0.0-0.3); Blood Urea Nitrogen 20 mg/dl (6-20); Gamma Glutamyl Transpeptidase 14 U/L (5-36); Uric Acid 1.8 mg/dL (2.5-8.0)
--- NOTE | 2018-12-24 07:01 | XRay Report ---
CLINICAL INFORMATION: preop evaluation COMPARISON: None. FINDINGS: Lines and tubes remain in stable satisfactory position. Cardiomediastinal silhouette and pulmonary vessels are normal. The lungs are clear. Mild elevation right diaphragm seen as before. IMPRESSION: No acute disease Interpreted and Authenticated by: All Lundberg 12/24/18
[2018-12-24] MEDS: LEVOTHYROXINE 100 MCG VIAL IV SCH (08:09)
[2018-12-24] MEDS: PANTOPRAZOLE 40 MG VIAL IV SCH ×2 (08:09→17:13)
[2018-12-24] MEDS: methylPREDNISolone SOD SUCC 125 MG/2 ML VIAL IV SCH ×2 (09:38→22:17)
[2018-12-24] MEDS: MEROPENEM 0.5 GM in 0.9 % SODIUM CHLORIDE 50 ML IV SCH (09:39)
[2018-12-24] MEDS: 0.9 % SODIUM CHLORIDE 10 ML SYRINGE IV SCH ×2 (09:40→22:18)
[2018-12-24] MEDS: 0.9 % SODIUM CHLORIDE 1,000 ML IV SCH (11:41)
[2018-12-24] MEDS ORDERED: 0.9 % SODIUM CHLORIDE 250 ML IV SCH (12:30)
--- NOTE | 2018-12-24 13:32 | General Surgery Progress Note ---
Subjective Patient reports: feels better, still having pain, voiding w/o difficulty, afebrile Narrative: Note initiated : 12/24/18 at 1:30 pm Service Date, if different from initiated Date: [] Patient: Dayanna Stephens 58 y/o F admitted on 11/28/18 for Abdominal Pain. Chief Complaint: [patient is clinically improved. Her major problem has been pain control. This is probably because she has built up tolerance to narcotic analgesics. This is expected outcome with multiple hospitalizations and surgery. She has a small amount of gas in her stoma appliance. She is afebrile. White blood count 13.3, hemoglobin 8.2, BUN 20, creatinine 0.7. Patient has increased congested cough which is nonproductive. Chest x-ray is normal.] Objective Temp Pulse Resp BP Pulse Ox 99.6 F H 129 H 20 144/78 93 12/24/18 12:00 12/24/18 12:00 12/24/18 12:00 12/24/18 12:00 12/24/18 12:00 - Additional Data Intake & Output - Last 24 hours: Intake & Output 12/22/18 12/23/18 12/24/18 12/25/18 05:59 05:59 05:59 05:59 Intake Total 2270 4800 1597 1250 Output Total 5200 5050 2930 Balance -2930 -250 -1333 1250 Weight 236 lb 14.4 oz 236 lb 14.4 oz 221 lb 8 oz - General physical appearance moderate distress, moderate pain, chronically ill - Eyes PERRL, normal ocular movement - ENT normal pinna, normal nares, normal mucosa, no hearing loss, no congestion - Neck no masses, no bruits, trachea midline, no lymphadenopathy, no venous distension - Respiratory normal expansion, normal respiratory effort, clear to auscultation - Cardiovascular Cardiovascular exam: Present: normal rate and rhythm, RRR, +S1, +S2. Absent: JVD, tachycardia - Abdomen tender (moderate tenderness to abdomen; active bowel sounds; stoma looks good; i ncision looks good) - Integumentary no rash, no growths, no abnormal pigmentation - Neurologic normal coordination, normal sensation - Musculoskeletal normal gait, normal posture - Psychiatric oriented to time, oriented to person, oriented to place, speech is normal, memory intact - Labs 12/24/18 04:39 12/24/18 04:39 Diabetes panel 12/24/18 Range/Units 04:39 Sodium 137 (133-145) mmol/L Potassium 3.7 (3.3-5.1) mmol/L Chloride 98 (96-108) mmol/L Carbon Dioxide 32 H (22-30) mmol/L BUN 20 (6-20) mg/dl Creatinine 0.7 (0.6-1.1) mg/dl Glucose 196 H (70-105) mg/dL Calcium 7.6 L (8.6-10.4) mg/dl AST 22 (0-37) U/l ALT 35 (0-40) U/l Alkaline Phosphatase 88 (39-117) U/L Total Protein 5.1 L (5.9-8.4) gm/dL Albumin 2.4 L (3.2-5.2) gm/dL Triglycerides 122 (<150) mg/dl Calcium panel 12/24/18 Range/Units 04:39 Calcium 7.6 L (8.6-10.4) mg/dl Phosphorus 2.0 L (2.7-4.5) mg/dL Albumin 2.4 L (3.2-5.2) gm/dL Pituitary panel 12/24/18 Range/Units 04:39 Sodium 137 (133-145) mmol/L Potassium 3.7 (3.3-5.1) mmol/L Chloride 98 (96-108) mmol/L Carbon Dioxide 32 H (22-30) mmol/L BUN 20 (6-20) mg/dl Creatinine 0.7 (0.6-1.1) mg/dl Glucose 196 H (70-105) mg/dL Calcium 7.6 L (8.6-10.4) mg/dl Adrenal panel 12/24/18 Range/Units 04:39 Sodium 137 (133-145) mmol/L Potassium 3.7 (3.3-5.1) mmol/L Chloride 98 (96-108) mmol/L Carbon Dioxide 32 H (22-30) mmol/L BUN 20 (6-20) mg/dl Creatinine 0.7 (0.6-1.1) mg/dl Glucose 196 H (70-105) mg/dL Calcium 7.6 L (8.6-10.4) mg/dl Total Bilirubin 0.2 (0.0-1.0) mg/dL AST 22 (0-37) U/l ALT 35 (0-40) U/l Alkaline Phosphatase 88 (39-117) U/L Total Protein 5.1 L (5.9-8.4) gm/dL Albumin 2.4 L (3.2-5.2) gm/dL Assessment and Plan (1) Chronic intestinal pseudo-obstruction Status: Acute Assessment and plan: Normal saline 150 cc Recheck labs in the morning Transfuse 2 units packed red cells today Mucinex 600 mg twice daily and clamped tube for 2 hours after each tablet is given Current Visit: Yes (2) Myasthenia gravis Status: Acute Current Visit: No - Time Spent With Patient Total time spent is greater than 50% in coordination of care (as documented) at patient's floor/unit and/or counseling patient:
[2018-12-24] MEDS ORDERED: [UNRECOGNIZED DRUG - REMARK] IV SCH (15:00)
[2018-12-24] MEDS ORDERED: PROMETHAZINE 25 MG/ML VIAL ONE (19:05)
[2018-12-24] MEDS: PROMETHAZINE 25 MG/ML VIAL IV SCH (19:06)
[2018-12-24] MEDS: guaiFENesin 600 MG TAB.SR.12H PO SCH (23:04)
[2018-12-25] MEDS: HYDROmorphone 2 MG/ML VIAL IV PRN ×13 (00:15→22:29)
[2018-12-25] MEDS: PROMETHAZINE 25 MG/ML VIAL IV SCH ×4 (00:16→20:46)
[2018-12-25] MEDS: IPRATROPIUM/ALBUTEROL 3 ML AMPUL.NEB NEB SCH ×4 (01:14→18:47)
[2018-12-25] MEDS ORDERED: 0.9 % SODIUM CHLORIDE 250 ML IV SCH (04:45)
[2018-12-25] MEDS: ACETAMINOPHEN 1,000 MG/100 ML BOTTLE IV SCH ×3 (05:50→17:12)
[2018-12-25] MEDS: INSULIN LISPRO 1 UNIT/0.01 ML UNIT SQ SCH ×3 (05:57→17:51)
[2018-12-25 06:21] LABS: ALT/SGPT 29 U/l (0-40); Albumin 2.1 gm/dL (3.2-5.2); Albumin/Globulin Ratio 0.7 (1.0-2.3); Alkaline Phosphatase 73 U/L (39-117); Bilirubin,Direct < 0.2 mg/dL (0.0-0.3); Blood Urea Nitrogen 18 mg/dl (6-20); Gamma Glutamyl Transpeptidase 12 U/L (5-36); Uric Acid 1.7 mg/dL (2.5-8.0)
[2018-12-25] MEDS: 0.9 % SODIUM CHLORIDE 1,000 ML IV SCH ×2 (07:03→12:00)
[2018-12-25] MEDS: LORazepam 2 MG/ML VIAL IV PRN (07:14)
[2018-12-25] MEDS: PANTOPRAZOLE 40 MG VIAL IV SCH ×2 (07:14→17:12)
[2018-12-25] MEDS: LEVOTHYROXINE 100 MCG VIAL IV SCH (07:14)
[2018-12-25 07:26] LABS: Basophils # (Auto) 0 K/mcL (0.0-0.3); Basophils % (Auto) 0 % (0.0-2.0); Eosinophils # (Auto) 0 K/mcL (0.0-0.7); Eosinophils % (Auto) 0.1 % (0.0-7.0); Granulocytes % (Auto) 89.4 % (38.0-78.0); Lymphocytes # (Auto) 0.7 K/mcL (1.5-4.8); Lymphocytes % (Auto) 5.9 % (15.5-49.0); Mean Cell Volume 83.5 fL (80.0-100.0); Mean Corpuscular HGB Conc 31.4 g/dL (31.0-36.0); Monocytes # (Auto) 0.5 K/mcL (0.1-0.9); Monocytes % (Auto) 4.6 % (1.0-12.0); Platelet Count 232 K/mcL (140-440); RBC 3.62 M/mcL (4.00-5.20)
[2018-12-25] MEDS: methylPREDNISolone SOD SUCC 125 MG/2 ML VIAL IV SCH ×2 (09:42→20:21)
[2018-12-25] MEDS: MEROPENEM 0.5 GM in 0.9 % SODIUM CHLORIDE 50 ML IV SCH (09:42)
[2018-12-25] MEDS: guaiFENesin 600 MG TAB.SR.12H PO SCH ×2 (09:43→20:21)
[2018-12-25] MEDS: 0.9 % SODIUM CHLORIDE 10 ML SYRINGE IV SCH ×2 (10:09→20:22)
--- NOTE | 2018-12-25 13:07 | Surgical Pathology Report ---
HISTOLOGY SPECIMEN MICROSCOPIC DIAGNOSIS SPECIMEN A - COLON, TERMINAL ILEUM AND OMENTUM, SEGMENTAL RESECTION WITH PARTIAL OMENTECTOMY: -- COLON: - SEROSAL ADHESIONS. - DISTAL MARGIN VIABLE. -- TERMINAL ILEUM: - NO DIAGNOSTIC ALTERATIONS. - PROXIMAL MARGIN VIABLE. -- OMENTUM: - PATCHY ORGANIZING FAT NECROSIS. - SEROSAL ADHESIONS. -- LYMPH NODE, MESENTERIC: - ONE LYMPH NODE WITH REACTIVE LYMPHOID HYPERPLASIA. SPECIMEN B - COLOSTOMY, TAKEDOWN: -- COLOSTOMY SITE WITH ASSOCIATED CHRONIC INFLAMMATION AND FIBROSIS. -- MARGIN VIABLE. (DMT:mirna) PROCEDURAL IMPRESSION Chronic intestinal pseudodistension. GROSS DESCRIPTION Specimen A: Received in formalin labeled colon, is a 61 cm long, 3 cm diameter portion of ascending colon and cecum attached to a 1 cm long, 3 cm diameter portion of terminal ileum. Both the proximal and distal reid are stapled. A minimal amount mesenteric fat is attached along with a 45 x 12.5 x up to 6.5 cm portion of omentum. The serosal surface of the intestine and omentum has araujo-white, thin striations and adhesions. The appendix is not present and a black suture is present at the approximate appendiceal attachment site. The specimen is opened along it length and contains a minimal amount of mucoid fecal material. The small and large intestinal folds have their usual plicated appearance with slight broadening of the large intestinal folds. The wall of the large intestine is up to 0.4 cm thick. The terminal ileum margin is inked black. No intestinal masses, polyps or other lesions are identified. Approximately 28 cm from the ileocecal valve, the attached omentum appears thickened and is 10.6 x 9 x 4 cm. The adipose tissue in this area is firm. The remaining omentum is microlobulated with thin fibrous strands. A single, 0.5 cm in greatest dimension candidate lymph node is identified within the mesentery. Refr[employer]ated [employer] sections are submitted in ten cassettes as follows: A1 - margins; A2-A5 - random sections of large intestine; A6 - veterans service representative section of ileocecal valve; A7 - veterans service representative section of terminal ileum; A8 - veterans service representative sections of thickened omentum; A9 - veterans service representative section of possible appendiceal orifice; A10 - candidate lymph node. Specimen B: Received in formalin labeled stoma, is a 3.8 x 0.6 cm piece of araujo-pink skin and soft tissue with sutures centrally extending from one end to the other end. Attached to the skin is a 7 cm long, 2.1 cm diameter segment of intestine. The margin is stapled and inked black. The intestinal wall is 0.3 cm thick. The mucosa is araujo with broad folds. No mucosal lesions or masses are identified. Refrigerated [employer] sections are submitted in three cassettes as follows: B1 - intestine margin; B2 - veterans service representative section of intestine; B3 - transition from skin to intestine. (SCB:mirna) Electronically Signed by: Deep Taylor M.D.
[2018-12-25] MEDS: [UNRECOGNIZED DRUG - REMARK] IV SCH (14:52)
[2018-12-25] MEDS ORDERED: HEPARIN SODIUM,PORCINE/PF 500 UNIT/5 ML SYRINGE IV ONE (16:12)
[2018-12-25] MEDS: LORazepam 2 MG/ML VIAL IV SCH (17:32)
--- NOTE | 2018-12-25 18:33 | General Surgery Progress Note ---
Subjective Patient reports: feels better, pain is less, no flatus, no bowel movement, nausea, afebrile Narrative: Note initiated : 12/25/18 at 6:31 pm Service Date, if different from initiated Date: [] Patient: Dayanna Stephens 58 y/o F admitted on 11/28/18 for Abdominal Pain. Chief Complaint: [Patient is clinically improved. Her major problem is pain control. She has nausea but no vomiting. She is afebrile. Her incision is unremarkable. White blood count 11.8, hemoglobin 9.5, potassium 4.7.] Objective Temp Pulse Resp BP Pulse Ox 97.8 F 74 18 148/83 92 12/25/18 16:00 12/25/18 16:00 12/25/18 16:00 12/25/18 16:00 12/25/18 16:00 - Additional Data Intake & Output - Last 24 hours: Intake & Output 12/23/18 12/24/18 12/25/18 12/26/18 05:59 05:59 05:59 05:59 Intake Total 4800 1597 2485 1470 Output Total 5050 2930 4800 2100 Balance -250 -5867 -7257 -630 Weight 236 lb 14.4 oz 221 lb 8 oz 226 lb 8 oz 226 lb 8 oz - General physical appearance chronically ill - Eyes PERRL, normal ocular movement - ENT normal pinna, normal nares, normal mucosa, no hearing loss, no congestion - Neck no masses, no bruits, trachea midline, no lymphadenopathy, no venous distension - Respiratory normal expansion, normal respiratory effort, clear to auscultation - Cardiovascular Cardiovascular exam: Present: RRR, +S1, +S2. Absent: JVD, tachycardia - Abdomen tender, bowel sounds (few active bowel sounds), surgical scars (none), masses (none) - Integumentary no rash, no growths, no abnormal pigmentation - Neurologic normal coordination, normal sensation - Musculoskeletal normal gait, normal posture - Psychiatric oriented to time, oriented to person, oriented to place, speech is normal, memory intact - Labs 12/25/18 04:54 12/25/18 04:54 Diabetes panel 12/25/18 Range/Units 04:54 Sodium 141 (133-145) mmol/L Potassium 4.7 (3.3-5.1) mmol/L Chloride 100 (96-108) mmol/L Carbon Dioxide 31 H (22-30) mmol/L BUN 18 (6-20) mg/dl Creatinine 0.6 (0.6-1.1) mg/dl Glucose 344 H (70-105) mg/dL Calcium 8.0 L (8.6-10.4) mg/dl AST 18 (0-37) U/l ALT 29 (0-40) U/l Alkaline Phosphatase 73 (39-117) U/L Total Protein 5.2 L (5.9-8.4) gm/dL Albumin 2.1 L (3.2-5.2) gm/dL Triglycerides 115 (<150) mg/dl Calcium panel 12/25/18 Range/Units 04:54 Calcium 8.0 L (8.6-10.4) mg/dl Phosphorus 3.8 (2.7-4.5) mg/dL Albumin 2.1 L (3.2-5.2) gm/dL Pituitary panel 12/25/18 Range/Units 04:54 Sodium 141 (133-145) mmol/L Potassium 4.7 (3.3-5.1) mmol/L Chloride 100 (96-108) mmol/L Carbon Dioxide 31 H (22-30) mmol/L BUN 18 (6-20) mg/dl Creatinine 0.6 (0.6-1.1) mg/dl Glucose 344 H (70-105) mg/dL Calcium 8.0 L (8.6-10.4) mg/dl Adrenal panel 12/25/18 Range/Units 04:54 Sodium 141 (133-145) mmol/L Potassium 4.7 (3.3-5.1) mmol/L Chloride 100 (96-108) mmol/L Carbon Dioxide 31 H (22-30) mmol/L BUN 18 (6-20) mg/dl Creatinine 0.6 (0.6-1.1) mg/dl Glucose 344 H (70-105) mg/dL Calcium 8.0 L (8.6-10.4) mg/dl Total Bilirubin 0.2 (0.0-1.0) mg/dL AST 18 (0-37) U/l ALT 29 (0-40) U/l Alkaline Phosphatase 73 (39-117) U/L Total Protein 5.2 L (5.9-8.4) gm/dL Albumin 2.1 L (3.2-5.2) gm/dL Assessment and Plan (1) Chronic intestinal pseudo-obstruction Status: Acute Assessment and plan: Normal saline 150 cc Recheck labs in the morning Current Visit: Yes (2) Myasthenia gravis Status: Acute Current Visit: No - Time Spent With Patient Total time spent is greater than 50% in coordination of care (as documented) at patient's floor/unit and/or counseling patient:
[2018-12-26] MEDS: ACETAMINOPHEN 1,000 MG/100 ML BOTTLE IV SCH ×4 (00:03→17:18)
[2018-12-26] MEDS: HYDROmorphone 2 MG/ML VIAL IV PRN ×16 (00:04→22:33)
[2018-12-26] MEDS: LORazepam 2 MG/ML VIAL IV SCH ×4 (00:05→17:44)
[2018-12-26] MEDS: INSULIN LISPRO 1 UNIT/0.01 ML UNIT SQ SCH ×4 (00:05→17:24)
[2018-12-26] MEDS: IPRATROPIUM/ALBUTEROL 3 ML AMPUL.NEB NEB SCH ×4 (02:06→19:20)
[2018-12-26] MEDS: PROMETHAZINE 25 MG/ML VIAL IV SCH ×4 (03:24→23:10)
[2018-12-26] MEDS: 0.9 % SODIUM CHLORIDE 1,000 ML IV SCH (03:29)
[2018-12-26 06:55] LABS: ALT/SGPT 34 U/l (0-40); Albumin 2.4 gm/dL (3.2-5.2); Albumin/Globulin Ratio 0.9 (1.0-2.3); Alkaline Phosphatase 88 U/L (39-117); Bilirubin,Direct < 0.2 mg/dL (0.0-0.3); Blood Urea Nitrogen 21 mg/dl (6-20); Gamma Glutamyl Transpeptidase 16 U/L (5-36)
[2018-12-26 07:28] LABS: Basophils # (Auto) 0 K/mcL (0.0-0.3); Basophils % (Auto) 0.2 % (0.0-2.0); Eosinophils # (Auto) 0 K/mcL (0.0-0.7); Eosinophils % (Auto) 0.1 % (0.0-7.0); Granulocytes % (Auto) 84.4 % (38.0-78.0); Lymphocytes % (Auto) 9.7 % (15.5-49.0); Mean Cell Volume 83.3 fL (80.0-100.0); Mean Corpuscular HGB Conc 31.2 g/dL (31.0-36.0); Monocytes # (Auto) 0.6 K/mcL (0.1-0.9); Monocytes % (Auto) 5.6 % (1.0-12.0); Platelet Count 262 K/mcL (140-440); Red Cell Distribution Width 18.4 % (11.5-14.5)
[2018-12-26] MEDS: LEVOTHYROXINE 100 MCG VIAL IV SCH (07:43)
[2018-12-26] MEDS: PANTOPRAZOLE 40 MG VIAL IV SCH ×2 (07:44→16:26)
[2018-12-26] MEDS: MEROPENEM 0.5 GM in 0.9 % SODIUM CHLORIDE 50 ML IV SCH (08:58)
[2018-12-26] MEDS: 0.9 % SODIUM CHLORIDE 10 ML SYRINGE IV SCH ×2 (08:59→22:35)
[2018-12-26] MEDS: guaiFENesin 600 MG TAB.SR.12H PO SCH ×2 (08:59→22:35)
[2018-12-26] MEDS: methylPREDNISolone SOD SUCC 125 MG/2 ML VIAL IV SCH ×2 (09:00→22:34)
[2018-12-26] MEDS: [UNRECOGNIZED DRUG - REMARK] IV SCH (15:02)
--- NOTE | 2018-12-26 15:45 | General Surgery Progress Note ---
Subjective Narrative: Note initiated : 12/26/18 at 3:43 pm Service Date, if different from initiated Date: [] Patient: Dayanna Stephens 58 y/o F admitted on 11/28/18 for Abdominal Pain. Chief Complaint: [Patient states that she feels better. She has less pain at this time. She still has some nausea. She spit out a small amount of liquid stool through her ileostomy. She is afebrile. White blood count 10.4, hemoglobin 8.8, potassium 4.4, BUN 21, creatinine 0.6, lactic acid 2.7] Objective Temp Pulse Resp BP Pulse Ox 98.6 F 83 18 146/80 96 12/26/18 14:54 12/26/18 13:40 12/26/18 14:54 12/26/18 14:54 12/26/18 14:54 - Additional Data Intake & Output - Last 24 hours: Intake & Output 12/24/18 12/25/18 12/26/18 12/27/18 05:59 05:59 05:59 05:59 Intake Total 1597 2485 1750 2664 Output Total 2930 4800 4375 1680 Balance -8843 -9441 -2621 984 Weight 221 lb 8 oz 226 lb 8 oz 227 lb 6.4 oz - General physical appearance moderate distress, moderate pain, chronically ill - Eyes PERRL, normal ocular movement - ENT normal pinna, normal nares, normal mucosa, no hearing loss, no congestion - Neck no masses, no bruits, trachea midline, no lymphadenopathy, no venous distension - Respiratory normal expansion, normal respiratory effort, clear to auscultation - Cardiovascular Cardiovascular exam: Present: normal rate and rhythm, RRR, +S1, +S2. Absent: JVD, tachycardia - Abdomen tender (moderate incisional tenderness; good active bowel sounds; ileostomy is beginning to function) - Integumentary no rash, no growths, no abnormal pigmentation - Neurologic normal coordination, normal sensation - Musculoskeletal normal gait, normal posture - Psychiatric oriented to time, oriented to person, oriented to place, speech is normal, me meir intact - Labs 12/26/18 05:20 12/26/18 05:20 Diabetes panel 12/26/18 Range/Units 05:20 Sodium 141 (133-145) mmol/L Potassium 4.4 (3.3-5.1) mmol/L Chloride 101 (96-108) mmol/L Carbon Dioxide 32 H (22-30) mmol/L BUN 21 H (6-20) mg/dl Creatinine 0.6 (0.6-1.1) mg/dl Glucose 301 H (70-105) mg/dL Calcium 8.0 L (8.6-10.4) mg/dl AST 24 (0-37) U/l ALT 34 (0-40) U/l Alkaline Phosphatase 88 (39-117) U/L Total Protein 5.2 L (5.9-8.4) gm/dL Albumin 2.4 L (3.2-5.2) gm/dL Triglycerides 148 (<150) mg/dl Calcium panel 12/26/18 Range/Units 05:20 Calcium 8.0 L (8.6-10.4) mg/dl Phosphorus 3.4 (2.7-4.5) mg/dL Albumin 2.4 L (3.2-5.2) gm/dL Pituitary panel 12/26/18 Range/Units 05:20 Sodium 141 (133-145) mmol/L Potassium 4.4 (3.3-5.1) mmol/L Chloride 101 (96-108) mmol/L Carbon Dioxide 32 H (22-30) mmol/L BUN 21 H (6-20) mg/dl Creatinine 0.6 (0.6-1.1) mg/dl Glucose 301 H (70-105) mg/dL Calcium 8.0 L (8.6-10.4) mg/dl Adrenal panel 12/26/18 Range/Units 05:20 Sodium 141 (133-145) mmol/L Potassium 4.4 (3.3-5.1) mmol/L Chloride 101 (96-108) mmol/L Carbon Dioxide 32 H (22-30) mmol/L BUN 21 H (6-20) mg/dl Creatinine 0.6 (0.6-1.1) mg/dl Glucose 301 H (70-105) mg/dL Calcium 8.0 L (8.6-10.4) mg/dl Total Bilirubin < 0.2 (0.0-1.0) mg/dL AST 24 (0-37) U/l ALT 34 (0-40) U/l Alkaline Phosphatase 88 (39-117) U/L Total Protein 5.2 L (5.9-8.4) gm/dL Albumin 2.4 L (3.2-5.2) gm/dL Assessment and Plan (1) Chronic intestinal pseudo-obstruction Status: Acute Assessment and plan: Normal saline 150 cc Recheck labs in the morning Plan nasogastric tube Milk of magnesia 30 cc twice daily Current Visit: Yes (2) Myasthenia gravis Status: Acute Current Visit: No - Time Spent With Patient Total time spent is greater than 50% in coordination of care (as documented) at patient's floor/unit and/or counseling patient:
[2018-12-26] MEDS: MAGNESIUM HYDROXIDE 30 ML ORAL.SUSP PO SCH (16:15)
[2018-12-27] MEDS: ACETAMINOPHEN 1,000 MG/100 ML BOTTLE IV SCH ×5 (00:21→23:52)
[2018-12-27] MEDS: IPRATROPIUM/ALBUTEROL 3 ML AMPUL.NEB NEB SCH ×4 (00:21→19:09)
[2018-12-27] MEDS: LORazepam 2 MG/ML VIAL IV SCH ×5 (00:48→23:52)
[2018-12-27] MEDS: INSULIN LISPRO 1 UNIT/0.01 ML UNIT SQ SCH ×4 (00:50→17:13)
[2018-12-27] MEDS: MAGNESIUM HYDROXIDE 30 ML ORAL.SUSP PO SCH ×4 (00:51→23:52)
[2018-12-27] MEDS: HYDROmorphone 2 MG/ML VIAL IV PRN ×12 (01:06→22:27)
[2018-12-27] MEDS: PROMETHAZINE 25 MG/ML VIAL IV SCH ×4 (03:59→20:43)
[2018-12-27 06:55] LABS: Basophils # (Auto) 0 K/mcL (0.0-0.3); Basophils % (Auto) 0.2 % (0.0-2.0); Eosinophils # (Auto) 0 K/mcL (0.0-0.7); Eosinophils % (Auto) 0.2 % (0.0-7.0); Granulocytes % (Auto) 83.2 % (38.0-78.0); Lymphocytes # (Auto) 0.7 K/mcL (1.5-4.8); Lymphocytes % (Auto) 10.1 % (15.5-49.0); Mean Cell Volume 82.6 fL (80.0-100.0); Mean Corpuscular HGB Conc 31.7 g/dL (31.0-36.0); Monocytes # (Auto) 0.5 K/mcL (0.1-0.9); Monocytes % (Auto) 6.3 % (1.0-12.0); Platelet Count 292 K/mcL (140-440); RBC 3.63 M/mcL (4.00-5.20); Red Cell Distribution Width 18.6 % (11.5-14.5)
[2018-12-27 07:13] LABS: ALT/SGPT 226 U/l (0-40); Albumin 2.3 gm/dL (3.2-5.2); Albumin/Globulin Ratio 0.7 (1.0-2.3); Alkaline Phosphatase 160 U/L (39-117); Bilirubin,Direct < 0.2 mg/dL (0.0-0.3); Blood Urea Nitrogen 24 mg/dl (6-20); Gamma Glutamyl Transpeptidase 59 U/L (5-36); Uric Acid 2.6 mg/dL (2.5-8.0)
[2018-12-27] MEDS: PANTOPRAZOLE 40 MG VIAL IV SCH ×2 (07:38→17:07)
[2018-12-27] MEDS: LEVOTHYROXINE 100 MCG VIAL IV SCH (07:38)
[2018-12-27] MEDS: MEROPENEM 0.5 GM in 0.9 % SODIUM CHLORIDE 50 ML IV SCH (09:03)
[2018-12-27] MEDS: guaiFENesin 600 MG TAB.SR.12H PO SCH ×2 (09:04→20:43)
[2018-12-27] MEDS: methylPREDNISolone SOD SUCC 125 MG/2 ML VIAL IV SCH ×2 (09:04→20:43)
[2018-12-27] MEDS: 0.9 % SODIUM CHLORIDE 10 ML SYRINGE IV SCH ×2 (09:04→20:44)
--- NOTE | 2018-12-27 14:51 | General Surgery Progress Note ---
Subjective Patient reports: feels better, pain is less, flatus, bowel movement, afebrile Narrative: Note initiated : 12/27/18 at 2:49 pm Service Date, if different from initiated Date: [] Patient: Dayanna Stephens 58 y/o F admitted on 11/28/18 for Abdominal Pain. Chief Complaint: [patient is beginning to show improvement. Her nasogastric output is decreasing and she is having increasing output through her ileostomy. She has had to empty her ileostomy 3 times so for today. She denies nausea. Her pain is better controlled.] Objective Temp Pulse Resp BP Pulse Ox 98 F 89 16 161/86 91 12/27/18 12:00 12/27/18 13:01 12/27/18 13:01 12/27/18 12:00 12/27/18 12:00 - Additional Data Intake & Output - Last 24 hours: Intake & Output 12/25/18 12/26/18 12/27/18 12/28/18 05:59 05:59 05:59 05:59 Intake Total 2485 1750 3224 250 Output Total 4800 4375 6255 750 Balance -2315 -2625 -3031 -500 Weight 226 lb 8 oz 227 lb 6.4 oz 225 lb 8 oz 225 lb 8 oz - General physical appearance moderate distress, moderate pain, chronically ill - Eyes PERRL, normal ocular movement - ENT normal pinna, normal nares, normal mucosa, no hearing loss, no congestion - Neck no masses, no bruits, trachea midline, no lymphadenopathy, no venous distension - Respiratory normal expansion, normal respiratory effort, clear to auscultation - Cardiovascular Cardiovascular exam: Present: normal rate and rhythm, RRR, +S1, +S2, tachycardia. Absent: JVD - Abdomen tender (mild incisional tenderness with good active bowel sounds; incision looks good and stoma is functioning well.) - Integumentary no rash, no growths, no abnormal pigmentation - Neurologic normal coordination, normal sensation - Musculoskeletal normal gait, normal posture - Psychiatric oriented to time, oriented to person, oriented to place, speech is normal, memory intact - Labs 12/27/18 04:47 12/27/18 04:49 Diabetes panel 12/27/18 Range/Units 04:49 Sodium 141 (133-145) mmol/L Potassium 4.5 (3.3-5.1) mmol/L Chloride 101 (96-108) mmol/L Carbon Dioxide 29 (22-30) mmol/L BUN 24 H (6-20) mg/dl Creatinine 0.6 (0.6-1.1) mg/dl Glucose 218 H (70-105) mg/dL Calcium 7.8 L (8.6-10.4) mg/dl AST 195 H (0-37) U/l ALT 226 H (0-40) U/l Alkaline Phosphatase 160 H (39-117) U/L Total Protein 5.7 L (5.9-8.4) gm/dL Albumin 2.3 L (3.2-5.2) gm/dL Triglycerides 130 (<150) mg/dl Calcium panel 12/27/18 Range/Units 04:49 Calcium 7.8 L (8.6-10.4) mg/dl Phosphorus 3.8 (2.7-4.5) mg/dL Albumin 2.3 L (3.2-5.2) gm/dL Pituitary panel 12/27/18 Range/Units 04:49 Sodium 141 (133-145) mmol/L Potassium 4.5 (3.3-5.1) mmol/L Chloride 101 (96-108) mmol/L Carbon Dioxide 29 (22-30) mmol/L BUN 24 H (6-20) mg/dl Creatinine 0.6 (0.6-1.1) mg/dl Glucose 218 H (70-105) mg/dL Calcium 7.8 L (8.6-10.4) mg/dl Adrenal panel 12/27/18 Range/Units 04:49 Sodium 141 (133-145) mmol/L Potassium 4.5 (3.3-5.1) mmol/L Chloride 101 (96-108) mmol/L Carbon Dioxide 29 (22-30) mmol/L BUN 24 H (6-20) mg/dl Creatinine 0.6 (0.6-1.1) mg/dl Glucose 218 H (70-105) mg/dL Calcium 7.8 L (8.6-10.4) mg/dl Total Bilirubin 0.2 (0.0-1.0) mg/dL AST 195 H (0-37) U/l ALT 226 H (0-40) U/l Alkaline Phosphatase 160 H (39-117) U/L Total Protein 5.7 L (5.9-8.4) gm/dL Albumin 2.3 L (3.2-5.2) gm/dL Assessment and Plan (1) Chronic intestinal pseudo-obstruction Status: Acute Assessment and plan: Normal saline 150 cc Recheck labs in the morning Plan nasogastric tube Milk of magnesia 30 cc twice daily Current Visit: Yes (2) Myasthenia gravis Status: Acute Current Visit: No - Time Spent With Patient Total time spent is greater than 50% in coordination of care (as documented) at patient's floor/unit and/or counseling patient:
[2018-12-27] MEDS ORDERED: [UNRECOGNIZED DRUG - REMARK] IV SCH (15:00)
[2018-12-27] MEDS: 0.9 % SODIUM CHLORIDE 1,000 ML IV SCH ×2 (17:27→19:14)
[2018-12-28] MEDS: INSULIN LISPRO 1 UNIT/0.01 ML UNIT SQ SCH ×4 (00:08→18:07)
[2018-12-28] MEDS: IPRATROPIUM/ALBUTEROL 3 ML AMPUL.NEB NEB SCH ×4 (00:09→18:50)
[2018-12-28] MEDS: HYDROmorphone 2 MG/ML VIAL IV PRN ×9 (01:59→21:22)
[2018-12-28] MEDS: PROMETHAZINE 25 MG/ML VIAL IV SCH ×4 (03:14→22:34)
[2018-12-28] MEDS: LORazepam 2 MG/ML VIAL IV SCH ×3 (05:56→17:51)
[2018-12-28] MEDS: ACETAMINOPHEN 1,000 MG/100 ML BOTTLE IV SCH ×3 (05:57→17:51)
[2018-12-28 06:14] LABS: Basophils # (Auto) 0 K/mcL (0.0-0.3); Basophils % (Auto) 0 % (0.0-2.0); Eosinophils # (Auto) 0 K/mcL (0.0-0.7); Eosinophils % (Auto) 0 % (0.0-7.0); Lymphocytes # (Auto) 1.1 K/mcL (1.5-4.8); Lymphocytes % (Auto) 8.5 % (15.5-49.0); Mean Cell Volume 82.9 fL (80.0-100.0); Mean Corpuscular HGB Conc 31.1 g/dL (31.0-36.0); Monocytes # (Auto) 0.9 K/mcL (0.1-0.9); Monocytes % (Auto) 7.5 % (1.0-12.0); Platelet Count 357 K/mcL (140-440); RBC 4.72 M/mcL (4.00-5.20); Red Cell Distribution Width 19.1 % (11.5-14.5)
[2018-12-28 06:35] LABS: ALT/SGPT 209 U/l (0-40); Albumin 2.9 gm/dL (3.2-5.2); Albumin/Globulin Ratio 0.8 (1.0-2.3); Alkaline Phosphatase 192 U/L (39-117); Bilirubin,Direct < 0.2 mg/dL (0.0-0.3); Blood Urea Nitrogen 24 mg/dl (6-20); Gamma Glutamyl Transpeptidase 83 U/L (5-36); Uric Acid 2.4 mg/dL (2.5-8.0)
[2018-12-28] MEDS: LEVOTHYROXINE 100 MCG VIAL IV SCH (07:34)
[2018-12-28] MEDS: PANTOPRAZOLE 40 MG VIAL IV SCH ×2 (07:34→16:37)
[2018-12-28] MEDS: guaiFENesin 600 MG TAB.SR.12H PO SCH ×2 (08:43→21:24)
[2018-12-28] MEDS: MAGNESIUM HYDROXIDE 30 ML ORAL.SUSP PO SCH ×2 (08:43→15:17)
[2018-12-28] MEDS: methylPREDNISolone SOD SUCC 125 MG/2 ML VIAL IV SCH ×2 (08:44→21:23)
[2018-12-28] MEDS: 0.9 % SODIUM CHLORIDE 10 ML SYRINGE IV SCH ×2 (08:48→21:23)
--- NOTE | 2018-12-28 09:53 | XRay Report ---
CLINICAL INFORMATION: follow-up of small bowel obstruction COMPARISON: 12/22/2018 FINDINGS: NG tube tip is in the gastric fundus. GI tract is relatively decompressed on today's study with only small amounts of gas seen within few loops small bowel and stomach. Findings are compatible with mild ileus. No free air or soft tissue mass IMPRESSION: Decompressed GI tract with mild ileus pattern. Interpreted and Authenticated by: All Lundberg 12/28/18
[2018-12-28] MEDS: MEROPENEM 0.5 GM in 0.9 % SODIUM CHLORIDE 50 ML IV SCH (10:01)
--- NOTE | 2018-12-28 14:10 | General Surgery Progress Note ---
Subjective Patient reports: feels better, pain is less, flatus, bowel movement, diarrhea, afebrile Narrative: Note initiated : 12/28/18 at 2:08 pm Service Date, if different from initiated Date: [] Patient: Dayanna Stephens 58 y/o F admitted on 11/28/18 for Abdominal Pain. Chief Complaint: [patient is doing better. She is having movement through her stoma. White blood count 12.4, hemoglobin 12.2; stoma is functioning nicely.] Objective Temp Pulse Resp BP Pulse Ox 97.1 F 120 H 16 137/85 90 12/28/18 11:36 12/28/18 13:12 12/28/18 13:12 12/28/18 11:36 12/28/18 11:36 - Additional Data Intake & Output - Last 24 hours: Intake & Output 12/26/18 12/27/18 12/28/18 12/29/18 05:59 05:59 05:59 05:59 Intake Total 1750 3224 750 200 Output Total 4375 6255 2900 750 Balance -2625 -3031 -2150 -550 Weight 227 lb 6.4 oz 225 lb 8 oz 216 lb 8 oz - General physical appearance moderate distress, moderate pain, chronically ill - Eyes PERRL, normal ocular movement - ENT normal pinna, normal nares, normal mucosa, no hearing loss, no congestion - Neck no masses, no bruits, trachea midline, no lymphadenopathy, no venous distension - Respiratory normal expansion, normal respiratory effort, clear to auscultation - Cardiovascular Cardiovascular exam: Present: normal rate and rhythm, RRR, +S1, +S2. Absent: JVD, tachycardia - Abdomen tender, bowel sounds (present), surgical scars (none), masses (none) - Integumentary no rash, no growths, no abnormal pigmentation - Neurologic normal coordination, normal sensation - Musculoskeletal normal gait, normal posture - Psychiatric oriented to time, oriented to person, oriented to place, speech is normal, memory intact - Labs 12/28/18 04:47 12/28/18 04:47 Diabetes panel 12/28/18 Range/Units 04:47 Sodium 138 (133-145) mmol/L Potassium 4.2 (3.3-5.1) mmol/L Chloride 94 L (96-108) mmol/L Carbon Dioxide 29 (22-30) mmol/L BUN 24 H (6-20) mg/dl Creatinine 0.6 (0.6-1.1) mg/dl Glucose 280 H (70-105) mg/dL Calcium 8.1 L (8.6-10.4) mg/dl AST 82 H (0-37) U/l ALT 209 H (0-40) U/l Alkaline Phosphatase 192 H (39-117) U/L Total Protein 6.7 (5.9-8.4) gm/dL Albumin 2.9 L (3.2-5.2) gm/dL Triglycerides 266 H (<150) mg/dl Calcium panel 12/28/18 Range/Units 04:47 Calcium 8.1 L (8.6-10.4) mg/dl Phosphorus 4.0 (2.7-4.5) mg/dL Albumin 2.9 L (3.2-5.2) gm/dL Pituitary panel 12/28/18 Range/Units 04:47 Sodium 138 (133-145) mmol/L Potassium 4.2 (3.3-5.1) mmol/L Chloride 94 L (96-108) mmol/L Carbon Dioxide 29 (22-30) mmol/L BUN 24 H (6-20) mg/dl Creatinine 0.6 (0.6-1.1) mg/dl Glucose 280 H (70-105) mg/dL Calcium 8.1 L (8.6-10.4) mg/dl Adrenal panel 12/28/18 Range/Units 04:47 Sodium 138 (133-145) mmol/L Potassium 4.2 (3.3-5.1) mmol/L Chloride 94 L (96-108) mmol/L Carbon Dioxide 29 (22-30) mmol/L BUN 24 H (6-20) mg/dl Creatinine 0.6 (0.6-1.1) mg/dl Glucose 280 H (70-105) mg/dL Calcium 8.1 L (8.6-10.4) mg/dl Total Bilirubin 0.3 (0.0-1.0) mg/dL AST 82 H (0-37) U/l ALT 209 H (0-40) U/l Alkaline Phosphatase 192 H (39-117) U/L Total Protein 6.7 (5.9-8.4) gm/dL Albumin 2.9 L (3.2-5.2) gm/dL Assessment and Plan (1) Chronic intestinal pseudo-obstruction Status: Acute Assessment and plan: Normal saline 150 cc Recheck labs in the morning Plan nasogastric tube Milk of magnesia 30 cc twice daily Current Visit: Yes (2) Myasthenia gravis Status: Acute Current Visit: No - Time Spent With Patient Total time spent is greater than 50% in coordination of care (as documented) at patient's floor/unit and/or counseling patient:
[2018-12-28] MEDS ORDERED: [UNRECOGNIZED DRUG - REMARK] IV SCH (15:00)
[2018-12-28] MEDS: 0.9 % SODIUM CHLORIDE 1,000 ML IV SCH (17:52)
[2018-12-29] MEDS: LORazepam 2 MG/ML VIAL IV SCH ×4 (01:22→19:06)
[2018-12-29] MEDS: INSULIN LISPRO 1 UNIT/0.01 ML UNIT SQ SCH ×4 (01:22→17:48)
[2018-12-29] MEDS: ACETAMINOPHEN 1,000 MG/100 ML BOTTLE IV SCH ×4 (01:23→17:42)
[2018-12-29] MEDS: MAGNESIUM HYDROXIDE 30 ML ORAL.SUSP PO SCH ×3 (02:00→17:44)
[2018-12-29] MEDS ORDERED: DEXTROSE 5% IN WATER 1,000 ML IV SCH (02:15)
[2018-12-29] MEDS: IPRATROPIUM/ALBUTEROL 3 ML AMPUL.NEB NEB SCH ×4 (03:31→19:00)
[2018-12-29] MEDS: HYDROmorphone 2 MG/ML VIAL IV PRN ×10 (03:51→22:15)
[2018-12-29] MEDS: PROMETHAZINE 25 MG/ML VIAL IV SCH ×4 (03:52→22:13)
[2018-12-29 05:40] LABS: Basophils # (Auto) 0 K/mcL (0.0-0.3); Basophils % (Auto) 0 % (0.0-2.0); Eosinophils # (Auto) 0 K/mcL (0.0-0.7); Eosinophils % (Auto) 0 % (0.0-7.0); Granulocytes % (Auto) 91.1 % (38.0-78.0); Lymphocytes # (Auto) 1.2 K/mcL (1.5-4.8); Lymphocytes % (Auto) 5.6 % (15.5-49.0); Mean Cell Volume 83.1 fL (80.0-100.0); Mean Corpuscular HGB Conc 31.3 g/dL (31.0-36.0); Monocytes # (Auto) 0.7 K/mcL (0.1-0.9); Monocytes % (Auto) 3.3 % (1.0-12.0); Platelet Count 451 K/mcL (140-440); RBC 4.91 M/mcL (4.00-5.20); Red Cell Distribution Width 18.6 % (11.5-14.5)
[2018-12-29 06:56] LABS: ALT/SGPT 158 U/l (0-40); Albumin/Globulin Ratio 0.7 (1.0-2.3); Alkaline Phosphatase 199 U/L (39-117); Bilirubin,Direct < 0.2 mg/dL (0.0-0.3); Blood Urea Nitrogen 37 mg/dl (6-20); Gamma Glutamyl Transpeptidase 88 U/L (5-36); Uric Acid 3.4 mg/dL (2.5-8.0)
[2018-12-29] MEDS: LEVOTHYROXINE 100 MCG VIAL IV SCH (07:56)
[2018-12-29] MEDS: PANTOPRAZOLE 40 MG VIAL IV SCH ×2 (07:56→17:44)
[2018-12-29] MEDS: methylPREDNISolone SOD SUCC 125 MG/2 ML VIAL IV SCH ×2 (07:56→22:16)
[2018-12-29] MEDS: MEROPENEM 0.5 GM in 0.9 % SODIUM CHLORIDE 50 ML IV SCH (09:14)
[2018-12-29] MEDS: guaiFENesin 600 MG TAB.SR.12H PO SCH ×2 (09:14→22:13)
[2018-12-29] MEDS: 0.9 % SODIUM CHLORIDE 10 ML SYRINGE IV SCH ×3 (09:21→22:14)
--- NOTE | 2018-12-29 14:36 | General Surgery Progress Note ---
Subjective Patient reports: feels better, pain is less, flatus, diarrhea, afebrile Narrative: Note initiated : 12/29/18 at 2:33 pm Service Date, if different from initiated Date: [] Patient: Dayanna Stephens 58 y/o F admitted on 11/28/18 for Abdominal Pain. Chief Complaint: [patient is clinically stable. She looks much better. She is afebrile. She does have elevated white blood count that is felt to be multifac torial her lactic acid has decreased to 1.4. She has good output through her stoma at this time and has emptied it 3 times today. presently she is having problems with IV access. Her BUN is 37 and she may be hemoconcentrated. ] Objective Temp Pulse Resp BP Pulse Ox 97.2 F 104 H 20 132/70 93 12/29/18 07:21 12/29/18 13:25 12/29/18 13:25 12/29/18 12:00 12/29/18 07:21 - Additional Data Intake & Output - Last 24 hours: Intake & Output 12/27/18 12/28/18 12/29/18 12/30/18 05:59 05:59 05:59 05:59 Intake Total 3224 750 1681 100 Output Total 6255 2900 1525 200 Balance -3031 -2150 156 -100 Weight 225 lb 8 oz 216 lb 8 oz 214 lb 8 oz - General physical appearance well developed, well nourished, no distress - Eyes PERRL, normal ocular movement - ENT normal pinna, normal nares, normal mucosa, no hearing loss, no congestion - Neck no masses, no bruits, trachea midline, no lymphadenopathy, no venous distension - Respiratory normal expansion, normal respiratory effort, clear to auscultation - Cardiovascular Cardiovascular exam: Present: normal rate and rhythm, RRR, +S1, +S2. Absent: JVD, tachycardia - Abdomen bowel sounds (present), surgical scars (none), masses (none) - Rectum normal sphincter tone, no hemorrhoids, no tenderness, no masses, no bleeding - Integumentary no rash, no growths, no abnormal pigmentation - Neurologic normal coordination, normal sensation - Musculoskeletal normal gait, normal posture - Psychiatric oriented to time, oriented to person, oriented to place, speech is normal, memory intact - Labs 12/29/18 04:16 12/29/18 04:16 Diabetes panel 12/29/18 Range/Units 04:16 Sodium 136 (133-145) mmol/L Potassium 4.4 (3.3-5.1) mmol/L Chloride 93 L (96-108) mmol/L Carbon Dioxide 27 (22-30) mmol/L BUN 37 H (6-20) mg/dl Creatinine 0.9 (0.6-1.1) mg/dl Glucose 200 H (70-105) mg/dL Calcium 8.8 (8.6-10.4) mg/dl AST 46 H (0-37) U/l ALT 158 H (0-40) U/l Alkaline Phosphatase 199 H (39-117) U/L Total Protein 7.4 (5.9-8.4) gm/dL Albumin 3.0 L (3.2-5.2) gm/dL Triglycerides 263 H (<150) mg/dl Calcium panel 12/29/18 Range/Units 04:16 Calcium 8.8 (8.6-10.4) mg/dl Phosphorus 4.5 (2.7-4.5) mg/dL Albumin 3.0 L (3.2-5.2) gm/dL Pituitary panel 12/29/18 Range/Units 04:16 Sodium 136 (133-145) mmol/L Potassium 4.4 (3.3-5.1) mmol/L Chloride 93 L (96-108) mmol/L Carbon Dioxide 27 (22-30) mmol/L BUN 37 H (6-20) mg/dl Creatinine 0.9 (0.6-1.1) mg/dl Glucose 200 H (70-105) mg/dL Calcium 8.8 (8.6-10.4) mg/dl Adrenal panel 12/29/18 Range/Units 04:16 Sodium 136 (133-145) mmol/L Potassium 4.4 (3.3-5.1) mmol/L Chloride 93 L (96-108) mmol/L Carbon Dioxide 27 (22-30) mmol/L BUN 37 H (6-20) mg/dl Creatinine 0.9 (0.6-1.1) mg/dl Glucose 200 H (70-105) mg/dL Calcium 8.8 (8.6-10.4) mg/dl Total Bilirubin 0.3 (0.0-1.0) mg/dL AST 46 H (0-37) U/l ALT 158 H (0-40) U/l Alkaline Phosphatase 199 H (39-117) U/L Total Protein 7.4 (5.9-8.4) gm/dL Albumin 3.0 L (3.2-5.2) gm/dL Assessment and Plan (1) Chronic intestinal pseudo-obstruction Status: Acute Assessment and plan: Normal saline 150 cc Recheck labs in the morning Milk of magnesia 30 cc twice daily Full liquid diet as tolerated Current Visit: Yes (2) Myasthenia gravis Status: Acute Current Visit: No - Time Spent With Patient Total time spent is greater than 50% in coordination of care (as documented) at patient's floor/unit and/or counseling patient:
[2018-12-29] MEDS ORDERED: [UNRECOGNIZED DRUG - REMARK] IV SCH (15:00)
[2018-12-29] MEDS: oxyCODONE/APAP 5/325MG TABLET PO PRN (19:23)
[2018-12-30] MEDS: ACETAMINOPHEN 1,000 MG/100 ML BOTTLE IV SCH ×4 (00:13→17:56)
[2018-12-30] MEDS: LORazepam 2 MG/ML VIAL IV SCH ×4 (00:23→18:07)
[2018-12-30] MEDS: INSULIN LISPRO 1 UNIT/0.01 ML UNIT SQ SCH ×4 (00:27→18:06)
[2018-12-30] MEDS: oxyCODONE/APAP 5/325MG TABLET PO PRN ×6 (00:35→22:29)
[2018-12-30] MEDS: MAGNESIUM HYDROXIDE 30 ML ORAL.SUSP PO SCH ×3 (00:36→18:05)
[2018-12-30] MEDS: IPRATROPIUM/ALBUTEROL 3 ML AMPUL.NEB NEB SCH ×3 (00:42→14:15)
[2018-12-30] MEDS: PROMETHAZINE 25 MG/ML VIAL IV SCH ×4 (02:59→22:31)
[2018-12-30] MEDS: HYDROmorphone 2 MG/ML VIAL IV PRN ×7 (03:00→20:21)
[2018-12-30] MEDS: LEVOTHYROXINE 125 MCG TABLET PO SCH (08:34)
[2018-12-30] MEDS: PANTOPRAZOLE 40 MG VIAL IV SCH ×2 (08:36→17:57)
[2018-12-30] MEDS: guaiFENesin 600 MG TAB.SR.12H PO SCH ×2 (10:07→22:31)
[2018-12-30] MEDS: methylPREDNISolone SOD SUCC 125 MG/2 ML VIAL IV SCH (10:11)
[2018-12-30] MEDS: MEROPENEM 0.5 GM in 0.9 % SODIUM CHLORIDE 50 ML IV SCH (10:29)
[2018-12-30] MEDS: predniSONE 20 MG TABLET PO SCH ×2 (10:39→18:05)
[2018-12-30 11:26] LABS: Basophils # (Auto) 0 K/mcL (0.0-0.3); Basophils % (Auto) 0 % (0.0-2.0); Eosinophils # (Auto) 0.1 K/mcL (0.0-0.7); Eosinophils % (Auto) 0.7 % (0.0-7.0); Granulocytes % (Auto) 83.4 % (38.0-78.0); Lymphocytes # (Auto) 1.3 K/mcL (1.5-4.8); Lymphocytes % (Auto) 9.9 % (15.5-49.0); Mean Cell Volume 83.3 fL (80.0-100.0); Mean Corpuscular HGB Conc 31.9 g/dL (31.0-36.0); Monocytes # (Auto) 0.8 K/mcL (0.1-0.9); Platelet Count 413 K/mcL (140-440); RBC 3.91 M/mcL (4.00-5.20); Red Cell Distribution Width 18.9 % (11.5-14.5)
[2018-12-30] MEDS: 0.9 % SODIUM CHLORIDE 10 ML SYRINGE IV SCH ×4 (12:25→22:32)
[2018-12-30 12:33] LABS: ALT/SGPT 97 U/l (0-40); Albumin 2.7 gm/dL (3.2-5.2); Albumin/Globulin Ratio 0.8 (1.0-2.3); Alkaline Phosphatase 140 U/L (39-117); Bilirubin,Direct < 0.2 mg/dL (0.0-0.3); Blood Urea Nitrogen 28 mg/dl (6-20); Gamma Glutamyl Transpeptidase 58 U/L (5-36); Uric Acid 2.9 mg/dL (2.5-8.0)
--- NOTE | 2018-12-30 14:58 | General Surgery Progress Note ---
Subjective Patient reports: feels better, pain is less, flatus, bowel movement, diarrhea, afebrile Narrative: Note initiated : 12/30/18 at 2:57 pm Service Date, if different from initiated Date: [] Patient: Dayanna Stephens 58 y/o F admitted on 11/28/18 for Abdominal Pain. Chief Complaint: [] Objective Temp Pulse Resp BP Pulse Ox 98.4 F 112 H 14 127/73 93 12/30/18 11:49 12/30/18 11:49 12/30/18 11:49 12/30/18 11:49 12/30/18 11:49 - Additional Data Intake & Output - Last 24 hours: Intake & Output 12/28/18 12/29/18 12/30/18 12/31/18 05:59 05:59 05:59 05:59 Intake Total 750 1681 1930 100 Output Total 2900 1525 3500 1025 Balance -2150 156 -1570 -925 Weight 216 lb 8 oz 214 lb 8 oz 217 lb - General physical appearance moderate distress, moderate pain, chronically ill - Eyes PERRL, normal ocular movement - ENT normal pinna, normal nares, normal mucosa, no hearing loss, no congestion - Neck no masses, no bruits, trachea midline, no lymphadenopathy, no venous distension - Respiratory normal expansion, normal respiratory effort, clear to auscultation - Cardiovascular Cardiovascular exam: Present: normal rate and rhythm, RRR, +S1, +S2. Absent: JVD, tachycardia - Abdomen distended (abdomen is mildly distended; she is having difficulty with her stoma appliance adhering and she is having leaking. This is causing her some emotional difficulty.) - Integumentary no rash, no growths, no abnormal pigmentation - Neurologic normal coordination, normal sensation - Musculoskeletal normal gait, normal posture - Psychiatric oriented to time, oriented to person, oriented to place, speech is normal, vadim ry intact - Labs 12/30/18 09:21 12/30/18 09:21 Diabetes panel 12/30/18 Range/Units 09:21 Sodium 136 (133-145) mmol/L Potassium 4.3 (3.3-5.1) mmol/L Chloride 94 L (96-108) mmol/L Carbon Dioxide 32 H (22-30) mmol/L BUN 28 H (6-20) mg/dl Creatinine 0.6 (0.6-1.1) mg/dl Glucose 197 H (70-105) mg/dL Calcium 7.3 L (8.6-10.4) mg/dl AST 40 H (0-37) U/l ALT 97 H (0-40) U/l Alkaline Phosphatase 140 H (39-117) U/L Total Protein 6.2 (5.9-8.4) gm/dL Albumin 2.7 L (3.2-5.2) gm/dL Triglycerides 253 H (<150) mg/dl Calcium panel 12/30/18 Range/Units 09:21 Calcium 7.3 L (8.6-10.4) mg/dl Phosphorus 2.6 L (2.7-4.5) mg/dL Albumin 2.7 L (3.2-5.2) gm/dL Pituitary panel 12/30/18 Range/Units 09:21 Sodium 136 (133-145) mmol/L Potassium 4.3 (3.3-5.1) mmol/L Chloride 94 L (96-108) mmol/L Carbon Dioxide 32 H (22-30) mmol/L BUN 28 H (6-20) mg/dl Creatinine 0.6 (0.6-1.1) mg/dl Glucose 197 H (70-105) mg/dL Calcium 7.3 L (8.6-10.4) mg/dl Adrenal panel 12/30/18 Range/Units 09:21 Sodium 136 (133-145) mmol/L Potassium 4.3 (3.3-5.1) mmol/L Chloride 94 L (96-108) mmol/L Carbon Dioxide 32 H (22-30) mmol/L BUN 28 H (6-20) mg/dl Creatinine 0.6 (0.6-1.1) mg/dl Glucose 197 H (70-105) mg/dL Calcium 7.3 L (8.6-10.4) mg/dl Total Bilirubin 0.2 (0.0-1.0) mg/dL AST 40 H (0-37) U/l ALT 97 H (0-40) U/l Alkaline Phosphatase 140 H (39-117) U/L Total Protein 6.2 (5.9-8.4) gm/dL Albumin 2.7 L (3.2-5.2) gm/dL Assessment and Plan (1) Chronic intestinal pseudo-obstruction Status: Acute Assessment and plan: Normal saline 150 cc Recheck labs in the morning Milk of magnesia 30 cc twice daily Full liquid diet as tolerated Current Visit: Yes (2) Myasthenia gravis Status: Acute Current Visit: No - Time Spent With Patient Total time spent is greater than 50% in coordination of care (as documented) at patient's floor/unit and/or counseling patient:
[2018-12-30] MEDS ORDERED: [UNRECOGNIZED DRUG - REMARK] IV SCH (15:00)
[2018-12-30] MEDS ORDERED: IPRATROPIUM/ALBUTEROL 3 ML AMPUL.NEB NEB PRN (15:10)
[2018-12-31] MEDS: HYDROmorphone 2 MG/ML VIAL IV PRN ×10 (00:28→23:02)
[2018-12-31] MEDS: LORazepam 2 MG/ML VIAL IV SCH ×4 (00:30→18:21)
[2018-12-31] MEDS: MAGNESIUM HYDROXIDE 30 ML ORAL.SUSP PO SCH ×3 (01:04→15:57)
[2018-12-31] MEDS: ACETAMINOPHEN 1,000 MG/100 ML BOTTLE IV SCH ×4 (01:04→18:21)
[2018-12-31] MEDS: INSULIN LISPRO 1 UNIT/0.01 ML UNIT SQ SCH ×4 (01:21→17:27)
[2018-12-31] MEDS: PROMETHAZINE 25 MG/ML VIAL IV SCH ×4 (02:56→22:00)
[2018-12-31] MEDS: oxyCODONE/APAP 5/325MG TABLET PO PRN ×4 (03:03→20:23)
[2018-12-31 06:46] LABS: Basophils # (Auto) 0 K/mcL (0.0-0.3); Basophils % (Auto) 0.2 % (0.0-2.0); Eosinophils # (Auto) 0 K/mcL (0.0-0.7); Eosinophils % (Auto) 0.5 % (0.0-7.0); Granulocytes % (Auto) 78.5 % (38.0-78.0); Lymphocytes # (Auto) 1.1 K/mcL (1.5-4.8); Lymphocytes % (Auto) 12.8 % (15.5-49.0); Mean Cell Volume 81.4 fL (80.0-100.0); Mean Corpuscular HGB Conc 32.7 g/dL (31.0-36.0); Monocytes # (Auto) 0.7 K/mcL (0.1-0.9); Platelet Count 390 K/mcL (140-440); RBC 3.54 M/mcL (4.00-5.20); Red Cell Distribution Width 18.1 % (11.5-14.5)
[2018-12-31] MEDS: PANTOPRAZOLE 40 MG VIAL IV SCH ×2 (07:07→16:39)
[2018-12-31] MEDS: LEVOTHYROXINE 125 MCG TABLET PO SCH (07:07)
[2018-12-31 07:09] LABS: ALT/SGPT 84 U/l (0-40); Albumin 2.5 gm/dL (3.2-5.2); Albumin/Globulin Ratio 0.8 (1.0-2.3); Alkaline Phosphatase 119 U/L (39-117); Bilirubin,Direct < 0.2 mg/dL (0.0-0.3); Blood Urea Nitrogen 20 mg/dl (6-20); Gamma Glutamyl Transpeptidase 52 U/L (5-36); Uric Acid 2.2 mg/dL (2.5-8.0)
[2018-12-31] MEDS: predniSONE 20 MG TABLET PO SCH ×2 (10:35→18:20)
[2018-12-31] MEDS: guaiFENesin 600 MG TAB.SR.12H PO SCH ×2 (11:02→20:23)
[2018-12-31] MEDS: MEROPENEM 0.5 GM in 0.9 % SODIUM CHLORIDE 50 ML IV SCH (11:03)
[2018-12-31] MEDS: 0.9 % SODIUM CHLORIDE 10 ML SYRINGE IV SCH ×4 (11:31→20:24)
--- NOTE | 2018-12-31 15:13 | General Surgery Progress Note ---
Subjective Patient reports: feels better, pain is less, tolerating liquids well, flatus, bowel movement, afebrile Narrative: Note initiated : 12/31/18 at 3:11 pm Service Date, if different from initiated Date: [] Patient: Dayanna Stephens 58 y/o F admitted on 11/28/18 for Abdominal Pain. Chief Complaint: [patient is doing well. She states that her pain is significantly improved. She denies nausea. Her stoma is functioning well and she empties her bag multiple times during the day. She does not have abdominal pain. She has better success with getting her stoma appliance to adhere.] Objective Temp Pulse Resp BP Pulse Ox 97.8 F 78 14 130/73 93 12/31/18 11:40 12/31/18 11:40 12/31/18 11:40 12/31/18 11:40 12/31/18 11:40 - Additional Data Intake & Output - Last 24 hours: Intake & Output 12/29/18 12/30/18 12/31/18 01/01/19 05:59 05:59 05:59 05:59 Intake Total 1681 2410 4015.5053 2160 Output Total 1525 3500 3625 1915 Balance 156 -2917 355.3788 245 Weight 214 lb 8 oz 217 lb 208 lb 8 oz 208 lb 8 oz - General physical appearance well developed, well nourished, no distress - Eyes PERRL, normal ocular movement - ENT normal pinna, normal nares, normal mucosa, no hearing loss, no congestion - Neck no masses, no bruits, trachea midline, no lymphadenopathy, no venous distension - Respiratory normal expansion, normal respiratory effort, clear to percussion, clear to auscultation - Cardiovascular Cardiovascular exam: Present: normal rate and rhythm, RRR, +S1, +S2. Absent: JVD, tachycardia - Abdomen non tender (abdominal incision looks better. Still has some serosanguineous drainage. There is no evidence of cellulitis), bowel sounds (present), surgical scars (none) - Integumentary no rash, no growths, no abnormal pigmentation - Neurologic normal coordination, normal sensation - Musculoskeletal normal gait, normal posture - Psychiatric oriented to time - Labs 12/31/18 05:45 12/31/18 05:45 Diabetes panel 12/31/18 Range/Units 05:45 Sodium 139 (133-145) mmol/L Potassium 5.0 (3.3-5.1) mmol/L Chloride 99 (96-108) mmol/L Carbon Dioxide 29 (22-30) mmol/L BUN 20 (6-20) mg/dl Creatinine 0.6 (0.6-1.1) mg/dl Glucose 232 H (70-105) mg/dL Calcium 7.5 L (8.6-10.4) mg/dl AST 33 (0-37) U/l ALT 84 H (0-40) U/l Alkaline Phosphatase 119 H (39-117) U/L Total Protein 5.6 L (5.9-8.4) gm/dL Albumin 2.5 L (3.2-5.2) gm/dL Triglycerides 288 H (<150) mg/dl Calcium panel 12/31/18 Range/Units 05:45 Calcium 7.5 L (8.6-10.4) mg/dl Phosphorus 3.1 (2.7-4.5) mg/dL Albumin 2.5 L (3.2-5.2) gm/dL Pituitary panel 12/31/18 Range/Units 05:45 Sodium 139 (133-145) mmol/L Potassium 5.0 (3.3-5.1) mmol/L Chloride 99 (96-108) mmol/L Carbon Dioxide 29 (22-30) mmol/L BUN 20 (6-20) mg/dl Creatinine 0.6 (0.6-1.1) mg/dl Glucose 232 H (70-105) mg/dL Calcium 7.5 L (8.6-10.4) mg/dl Adrenal panel 12/31/18 Range/Units 05:45 Sodium 139 (133-145) mmol/L Potassium 5.0 (3.3-5.1) mmol/L Chloride 99 (96-108) mmol/L Carbon Dioxide 29 (22-30) mmol/L BUN 20 (6-20) mg/dl Creatinine 0.6 (0.6-1.1) mg/dl Glucose 232 H (70-105) mg/dL Calcium 7.5 L (8.6-10.4) mg/dl Total Bilirubin 0.2 (0.0-1.0) mg/dL AST 33 (0-37) U/l ALT 84 H (0-40) U/l Alkaline Phosphatase 119 H (39-117) U/L Total Protein 5.6 L (5.9-8.4) gm/dL Albumin 2.5 L (3.2-5.2) gm/dL Assessment and Plan (1) Chronic intestinal pseudo-obstruction Status: Acute Assessment and plan: Normal saline 150 cc Recheck labs in the morning Milk of magnesia 30 cc twice daily Regular diet as tolerated Current Visit: Yes (2) Myasthenia gravis Status: Acute Current Visit: No - Time Spent With Patient Total time spent is greater than 50% in coordination of care (as documented) at patient's floor/unit and/or counseling patient:
[2018-12-31] MEDS: [UNRECOGNIZED DRUG - REMARK] IV SCH (15:57)
[2019-01-01] MEDS: ACETAMINOPHEN 1,000 MG/100 ML BOTTLE IV SCH ×3 (00:06→12:31)
[2019-01-01] MEDS: LORazepam 2 MG/ML VIAL IV SCH ×5 (00:06→23:18)
[2019-01-01] MEDS: INSULIN LISPRO 1 UNIT/0.01 ML UNIT SQ SCH ×5 (00:13→23:29)
[2019-01-01] MEDS: MAGNESIUM HYDROXIDE 30 ML ORAL.SUSP PO SCH ×4 (02:15→23:19)
[2019-01-01] MEDS: oxyCODONE/APAP 5/325MG TABLET PO PRN ×2 (02:18→09:13)
[2019-01-01] MEDS: PROMETHAZINE 25 MG/ML VIAL IV SCH ×4 (02:19→20:06)
[2019-01-01] MEDS: HYDROmorphone 2 MG/ML VIAL IV PRN ×9 (03:43→23:19)
[2019-01-01 06:42] LABS: Basophils # (Auto) 0 K/mcL (0.0-0.3); Basophils % (Auto) 0.2 % (0.0-2.0); Eosinophils # (Auto) 0.3 K/mcL (0.0-0.7); Granulocytes % (Auto) 78.1 % (38.0-78.0); Lymphocytes # (Auto) 1.2 K/mcL (1.5-4.8); Lymphocytes % (Auto) 12.3 % (15.5-49.0); Mean Cell Volume 82.4 fL (80.0-100.0); Mean Corpuscular HGB Conc 31.6 g/dL (31.0-36.0); Monocytes # (Auto) 0.6 K/mcL (0.1-0.9); Monocytes % (Auto) 6.4 % (1.0-12.0); Platelet Count 447 K/mcL (140-440); RBC 4.16 M/mcL (4.00-5.20)
[2019-01-01 07:02] LABS: ALT/SGPT 73 U/l (0-40); Albumin/Globulin Ratio 0.9 (1.0-2.3); Alkaline Phosphatase 127 U/L (39-117); Bilirubin,Direct < 0.2 mg/dL (0.0-0.3); Blood Urea Nitrogen 19 mg/dl (6-20); Gamma Glutamyl Transpeptidase 59 U/L (5-36); Uric Acid 1.8 mg/dL (2.5-8.0)
[2019-01-01] MEDS: LEVOTHYROXINE 125 MCG TABLET PO SCH (08:13)
[2019-01-01] MEDS: PANTOPRAZOLE 40 MG VIAL IV SCH ×2 (08:13→16:35)
[2019-01-01] MEDS: predniSONE 20 MG TABLET PO SCH ×2 (08:13→16:36)
[2019-01-01] MEDS: guaiFENesin 600 MG TAB.SR.12H PO SCH ×2 (09:43→20:11)
[2019-01-01] MEDS: MEROPENEM 0.5 GM in 0.9 % SODIUM CHLORIDE 50 ML IV SCH (09:43)
[2019-01-01] MEDS: 0.9 % SODIUM CHLORIDE 10 ML SYRINGE IV SCH ×4 (11:19→20:06)
--- NOTE | 2019-01-01 11:58 | XRay Report ---
CLINICAL INFORMATION: History of small bowel obstruction COMPARISON: 12/28/2018 FINDINGS: The stomach is mildly dilated and fluid-filled. There is minimal gas scattered throughout the residual small bowel with a few air-fluid levels. Total colectomy changes acknowledged. No free air or soft tissue mass IMPRESSION: Nonspecific stool gas pattern more likely indicative indicative of ileus with decompressed GI tract than recurrent small bowel obstruction. If recurrent small bowel obstruction is suspected clinically, suggest small bowel follow-through Interpreted and Authenticated by: All Lundberg 01/01/19
[2019-01-01] MEDS ORDERED: [UNRECOGNIZED DRUG - REMARK] IV SCH (15:00)
--- NOTE | 2019-01-01 15:26 | General Surgery Progress Note ---
Subjective Patient reports: feels better, pain is less, tolerating a regular diet, flatus, bowel movement, afebrile Narrative: Note initiated : 01/01/19 at 3:24 pm Service Date, if different from initiated Date: [] Patient: Dayanna Stephens 58 y/o F admitted on 11/28/18 for Abdominal Pain. Chief Complaint: [Patient is stable and continues to improve. Vital signs stable; she is afebrile she denies nausea and is tolerating diet without difficulty white blood count 9.5, hemoglobin 10.8, BUN 19, creatinine 0.6. St barbosaa is working well but she continues to have leak due to the position of the stoma. This is being cared for by the enterostomal nurse.] Objective Temp Pulse Resp BP Pulse Ox 96.7 F L 79 14 153/72 91 01/01/19 12:00 01/01/19 12:00 01/01/19 12:00 01/01/19 12:00 01/01/19 12:00 - Additional Data Intake & Output - Last 24 hours: Intake & Output 12/30/18 12/31/18 01/01/19 01/02/19 05:59 05:59 05:59 05:59 Intake Total 2410 4015.5053 3430 200 Output Total 3500 3625 5065 1700 Balance -8655 267.0817 -1635 -1500 Weight 217 lb 208 lb 8 oz 216 lb 8 oz 216 lb 8 oz - General physical appearance well developed, well nourished, no distress - Eyes PERRL (or pneumothoraces.), normal ocular movement - ENT normal pinna, normal nares, normal mucosa, no hearing loss, no congestion - Neck no masses, no bruits, trachea midline, no lymphadenopathy, no venous distension - Respiratory normal expansion, normal respiratory effort, clear to auscultation - Cardiovascular Cardiovascular exam: Present: normal rate and rhythm, +S1, +S2. Absent: JVD, tachycardia - Abdomen non tender (abdominal exam is benign except for leaking around right lower quadrant ileostomy; she has mild superficial cellulitis due to caustic changes from the effluent from her ileostomy), bowel sounds (present), surgical scars (none), masses (none) - Integumentary no rash, no growths, no abnormal pigmentation - Neurologic normal coordination, normal sensation - Musculoskeletal normal gait, normal posture - Psychiatric oriented to time, oriented to person, oriented to place, speech is normal, memory intact - Labs 01/01/19 05:30 01/01/19 05:30 Diabetes panel 01/01/19 Range/Units 05:30 Sodium 138 (133-145) mmol/L Potassium 4.9 (3.3-5.1) mmol/L Chloride 96 (96-108) mmol/L Carbon Dioxide 27 (22-30) mmol/L BUN 19 (6-20) mg/dl Creatinine 0.6 (0.6-1.1) mg/dl Glucose 267 H (70-105) mg/dL Calcium 7.9 L (8.6-10.4) mg/dl AST 21 (0-37) U/l ALT 73 H (0-40) U/l Alkaline Phosphatase 127 H (39-117) U/L Total Protein 6.3 (5.9-8.4) gm/dL Albumin 3.0 L (3.2-5.2) gm/dL Triglycerides 436 H (<150) mg/dl Calcium panel 01/01/19 Range/Units 05:30 Calcium 7.9 L (8.6-10.4) mg/dl Phosphorus 4.4 (2.7-4.5) mg/dL Albumin 3.0 L (3.2-5.2) gm/dL Pituitary panel 01/01/19 Range/Units 05:30 Sodium 138 (133-145) mmol/L Potassium 4.9 (3.3-5.1) mmol/L Chloride 96 (96-108) mmol/L Carbon Dioxide 27 (22-30) mmol/L BUN 19 (6-20) mg/dl Creatinine 0.6 (0.6-1.1) mg/dl Glucose 267 H (70-105) mg/dL Calcium 7.9 L (8.6-10.4) mg/dl Adrenal panel 01/01/19 Range/Units 05:30 Sodium 138 (133-145) mmol/L Potassium 4.9 (3.3-5.1) mmol/L Chloride 96 (96-108) mmol/L Carbon Dioxide 27 (22-30) mmol/L BUN 19 (6-20) mg/dl Creatinine 0.6 (0.6-1.1) mg/dl Glucose 267 H (70-105) mg/dL Calcium 7.9 L (8.6-10.4) mg/dl Total Bilirubin 0.2 (0.0-1.0) mg/dL AST 21 (0-37) U/l ALT 73 H (0-40) U/l Alkaline Phosphatase 127 H (39-117) U/L Total Protein 6.3 (5.9-8.4) gm/dL Albumin 3.0 L (3.2-5.2) gm/dL Assessment and Plan (1) Chronic intestinal pseudo-obstruction Status: Acute Assessment and plan: Saline lock IV Recheck labs in the morning Milk of magnesia 30 cc twice daily Regular diet as tolerated Current Visit: Yes (2) Myasthenia gravis Status: Acute Current Visit: No - Time Spent With Patient Total time spent is greater than 50% in coordination of care (as documented) at patient's floor/unit and/or counseling patient:
[2019-01-01] MEDS: [UNRECOGNIZED DRUG - REMARK] IV SCH (17:24)
[2019-01-01] MEDS: oxyCODONE HCL 5 MG TABLET PO PRN ×2 (17:58→22:05)
[2019-01-01] MEDS ORDERED: KETOROLAC 30 MG/ML VIAL IV SCH (18:00)
[2019-01-02] MEDS: HYDROmorphone 2 MG/ML VIAL IV PRN ×9 (01:25→22:03)
[2019-01-02] MEDS: PROMETHAZINE 25 MG/ML VIAL IV SCH ×4 (03:27→20:10)
[2019-01-02] MEDS: oxyCODONE HCL 5 MG TABLET PO PRN ×6 (03:32→23:59)
[2019-01-02] MEDS: LORazepam 2 MG/ML VIAL IV SCH ×3 (05:45→17:50)
[2019-01-02] MEDS: 0.9 % SODIUM CHLORIDE 10 ML SYRINGE IV PRN ×2 (05:47→22:03)
--- NOTE | 2019-01-02 06:50 | XRay Report ---
CLINICAL INFORMATION: FOLLOW -UP OF SMALL BOWEL OBSTRUCTION COMPARISON: 01/01/2019 FINDINGS: Total colectomy acknowledged. Scattered air-fluid levels within nondilated stomach and small bowel again noted. No free air or soft tissue mass IMPRESSION: Mild ileus pattern Interpreted and Authenticated by: All Lundberg 01/02/19
[2019-01-02 06:53] LABS: Basophils # (Auto) 0 K/mcL (0.0-0.3); Basophils % (Auto) 0.3 % (0.0-2.0); Eosinophils # (Auto) 0.6 K/mcL (0.0-0.7); Eosinophils % (Auto) 4.3 % (0.0-7.0); Granulocytes % (Auto) 79.2 % (38.0-78.0); Lymphocytes # (Auto) 1.5 K/mcL (1.5-4.8); Lymphocytes % (Auto) 10.7 % (15.5-49.0); Mean Cell Volume 82.5 fL (80.0-100.0); Mean Corpuscular HGB Conc 31.9 g/dL (31.0-36.0); Monocytes # (Auto) 0.8 K/mcL (0.1-0.9); Monocytes % (Auto) 5.5 % (1.0-12.0); Platelet Count 458 K/mcL (140-440); RBC 4.06 M/mcL (4.00-5.20); Red Cell Distribution Width 18.9 % (11.5-14.5)
[2019-01-02] MEDS: PANTOPRAZOLE 40 MG VIAL IV SCH ×2 (07:05→16:03)
[2019-01-02] MEDS: predniSONE 20 MG TABLET PO SCH ×2 (07:06→18:39)
[2019-01-02] MEDS: LEVOTHYROXINE 125 MCG TABLET PO SCH (07:07)
[2019-01-02 07:15] LABS: ALT/SGPT 60 U/l (0-40); Albumin 2.7 gm/dL (3.2-5.2); Albumin/Globulin Ratio 0.8 (1.0-2.3); Alkaline Phosphatase 123 U/L (39-117); Bilirubin,Direct < 0.2 mg/dL (0.0-0.3); Blood Urea Nitrogen 21 mg/dl (6-20); Gamma Glutamyl Transpeptidase 59 U/L (5-36); Uric Acid 1.8 mg/dL (2.5-8.0)
[2019-01-02] MEDS: guaiFENesin 600 MG TAB.SR.12H PO SCH ×2 (07:58→20:09)
[2019-01-02] MEDS: MAGNESIUM HYDROXIDE 30 ML ORAL.SUSP PO SCH ×3 (07:58→23:59)
[2019-01-02] MEDS: 0.9 % SODIUM CHLORIDE 10 ML SYRINGE IV SCH ×4 (09:00→20:11)
--- NOTE | 2019-01-02 14:08 | General Surgery Progress Note ---
Subjective Patient reports: feels better, pain is less, tolerating a regular diet, flatus, bowel movement, afebrile Narrative: Note initiated : 01/02/19 at 2:06 pm Service Date, if different from initiated Date: [] Patient: Dayanna Stephens 58 y/o F admitted on 11/28/18 for Abdominal Pain. Chief Complaint: [patient continues to do well and should be stable for discharge in the morning. Arrangements have been made for her to get stoma supplies.] Objective Temp Pulse Resp BP Pulse Ox 97.8 F 84 18 142/87 90 01/02/19 12:00 01/02/19 03:35 01/02/19 12:00 01/02/19 12:00 01/02/19 12:00 - Additional Data Intake & Output - Last 24 hours: Intake & Output 12/31/18 01/01/19 01/02/19 01/03/19 05:59 05:59 05:59 05:59 Intake Total 4015.5053 3430 4259 Output Total 3625 5065 6050 Balance 390.5053 -1635 -1791 Weight 208 lb 8 oz 216 lb 8 oz 214 lb 214 lb - General physical appearance well developed, well nourished, no distress - Eyes PERRL, normal ocular movement - ENT normal pinna, normal nares, normal mucosa, no hearing loss, no congestion - Neck no masses, no bruits, trachea midline, no lymphadenopathy, no venous distension - Respiratory normal expansion, normal respiratory effort, clear to percussion, clear to auscultation - Cardiovascular Cardiovascular exam: Present: normal rate and rhythm, RRR, +S1, +S2. Absent: JVD, tachycardia - Abdomen non tender, bowel sounds (present), surgical scars (none), wound (mild irritation around lateral aspect of the ileostomy site from prior site of her Parra's TUBE), masses (none) - Integumentary other ( a cutaneous erythema around the ileostomy site) - Neurologic normal coordination, normal sensation - Musculoskeletal normal gait, normal posture - Psychiatric oriented to time, oriented to person, oriented to place, speech is normal, memory intact - Labs 01/02/19 05:20 01/02/19 05:20 Diabetes panel 01/02/19 Range/Units 05:20 Sodium 137 (133-145) mmol/L Potassium 5.0 (3.3-5.1) mmol/L Chloride 96 (96-108) mmol/L Carbon Dioxide 26 (22-30) mmol/L BUN 21 H (6-20) mg/dl Creatinine 0.7 (0.6-1.1) mg/dl Glucose 178 H (70-105) mg/dL Calcium 7.7 L (8.6-10.4) mg/dl AST 24 (0-37) U/l ALT 60 H (0-40) U/l Alkaline Phosphatase 123 H (39-117) U/L Total Protein 6.2 (5.9-8.4) gm/dL Albumin 2.7 L (3.2-5.2) gm/dL Triglycerides 380 H (<150) mg/dl Calcium panel 01/02/19 Range/Units 05:20 Calcium 7.7 L (8.6-10.4) mg/dl Phosphorus 4.2 (2.7-4.5) mg/dL Albumin 2.7 L (3.2-5.2) gm/dL Pituitary panel 01/02/19 Range/Units 05:20 Sodium 137 (133-145) mmol/L Potassium 5.0 (3.3-5.1) mmol/L Chloride 96 (96-108) mmol/L Carbon Dioxide 26 (22-30) mmol/L BUN 21 H (6-20) mg/dl Creatinine 0.7 (0.6-1.1) mg/dl Glucose 178 H (70-105) mg/dL Calcium 7.7 L (8.6-10.4) mg/dl Adrenal panel 01/02/19 Range/Units 05:20 Sodium 137 (133-145) mmol/L Potassium 5.0 (3.3-5.1) mmol/L Chloride 96 (96-108) mmol/L Carbon Dioxide 26 (22-30) mmol/L BUN 21 H (6-20) mg/dl Creatinine 0.7 (0.6-1.1) mg/dl Glucose 178 H (70-105) mg/dL Calcium 7.7 L (8.6-10.4) mg/dl Total Bilirubin 0.2 (0.0-1.0) mg/dL AST 24 (0-37) U/l ALT 60 H (0-40) U/l Alkaline Phosphatase 123 H (39-117) U/L Total Protein 6.2 (5.9-8.4) gm/dL Albumin 2.7 L (3.2-5.2) gm/dL Assessment and Plan (1) Chronic intestinal pseudo-obstruction Status: Acute Assessment and plan: Saline lock IV Recheck labs in the morning Milk of magnesia 30 cc twice daily Regular diet as tolerated Current Visit: Yes (2) Myasthenia gravis Status: Acute Current Visit: No - Time Spent With Patient Total time spent is greater than 50% in coordination of care (as documented) at patient's floor/unit and/or counseling patient:
[2019-01-03] MEDS: HYDROmorphone 2 MG/ML VIAL IV PRN ×5 (01:38→15:23)
[2019-01-03] MEDS: PROMETHAZINE 25 MG/ML VIAL IV SCH ×2 (03:04→08:57)
[2019-01-03] MEDS: oxyCODONE HCL 5 MG TABLET PO PRN ×2 (05:14→09:20)
[2019-01-03] MEDS: LORazepam 2 MG/ML VIAL IV SCH ×4 (05:14→13:20)
[2019-01-03] MEDS: PANTOPRAZOLE 40 MG VIAL IV SCH (08:21)
[2019-01-03] MEDS: LEVOTHYROXINE 125 MCG TABLET PO SCH (08:21)
[2019-01-03] MEDS: guaiFENesin 600 MG TAB.SR.12H PO SCH (08:21)
[2019-01-03] MEDS: MAGNESIUM HYDROXIDE 30 ML ORAL.SUSP PO SCH (08:21)
[2019-01-03] MEDS: predniSONE 20 MG TABLET PO SCH (08:21)
[2019-01-03] MEDS: 0.9 % SODIUM CHLORIDE 10 ML SYRINGE IV SCH ×2 (08:57→09:22)
--- NOTE | 2019-01-03 14:28 | Discharge Summary ---
Providers - Providers Patient information: Note initiated : 01/03/19 at 2:28 pm Service Date, if different from initiated Date: [] Patient: Dayanna Stephens 58 y/o F admitted on 11/28/18 for Abdominal Pain. Chief Complaint: [] Date of admission: 11/28/18 Discharge date: 01/03/19 Attending physician: Bertha Currie Hospitalization Hospital course: 58-year-old female admitted on 28 November with complaint of abdominal distention nausea vomiting. She was found to have massive dilation of her stomach and small bowel leading up to her Cecum. She had a large volume of stool in the right colon. Small bowel follow-through was done and this showed transit through the small bowel to the right colon. An attempt was made to treat her with milk of magnesia and MiraLAX. This helped temporarily and she had some decrease in nausea and some increase in output through her stoma. She however then started to have increasing distention and decreased output in spite of all treatments. She was treated with a combination of Mestinon, MiraLAX, milk of magnesia, erythromycin without improvement. Nasogastric tube was inserted and she was decompressed. I had a long discussion with her and we agreed to proceed with laparotomy. At laparotomy she was found to have extensive adhesions with multiple areas of near complete obstruction of her small bowel with diffuse dilation of her entire small bowel including her duodenum. Total small bowel adhesion lysis was carried out in a man for Parra's cyst tube was placed through the cecum into the terminal ileum and up to the ligament of Treitz. This was done to plicate the bowel and on only pattern to prevent acute angulation of obstruction. And within 2 days she had some output through her stoma and by 10 December she was tolerating a liquid diet. She seems to be doing well but then she developed some mental confusion and hallucinations. It was felt that this may have been related to her combination of medications including narcotics, Mestinon, Ativan, Cymbalta. Her medications were discontinued and she cleared mentally. She however was noted to have dilation from her stomach to her terminal ileum without any output through her stoma. MiraLAX and milk of magnesia was tried without improvement. Because of massive distention it was necessary to reexplore her. She was found to have somewhat flaccid but nondilated right colon with some hard stool. She also had extensive adhesions that had developed. Total colectomy with ileostomy and total small bowel adhesion lysis was carried out. The Parra's tube was removed. She was treated supportively over the next few days and by 28 December her stoma was functioning and she was having multiple liquid bowel movements. She has some difficulty with her stoma because the lateral aspect of the stoma about 10 against the area of the Parra's tube exit. She however did not have any problems with abdominal distention and has done well from that standpoint. Her diet has been advanced to a regular diet as she tolerates it well. She no longer has nausea. She is mentally clear. She is in much better frame of mind. The patient received TPN throughout most of this hospitalization except for few days prior to her second operation. She has some electrolyte abnormalities which were corrected primarily through an assistance to her TPN. The enterostomal therapist has worked very diligently to get her stoma appliance to adhere and that seems to be working well at this time. Patient is finally stable enough and can be discharged home. She will be followed in the office in 1 week. Discharge diagnosis: chronic intestinal pseudoobstruction Secondary discharge diagnosis: Small bowel obstruction due to adhesions Mental confusion related to medication Situational depression Myasthenia gravis Reason for admission: abdominal distention with nausea and vomiting Procedures: 06 December--- exploratory laparotomy with extensive adhesiolysis Parra's tube plication of the entire small bowel 22 December---- exploratory laparotomy with total adhesiolysis Total colectomy with ileostomy Removal of Parra's tube Pertinent studies/significant findings: CT of abdomen and pelvis with oral and IV contrast 2 Small bowel follow-through 2 Complications: None Exam Temp Pulse Resp BP Pulse Ox 98.0 F 98 H 18 137/76 92 01/03/19 13:57 01/03/19 13:57 01/03/19 06:57 01/03/19 13:57 01/03/19 13:57 - General physical appearance well developed, well nourished, no distress, chronically ill, obese - Eyes PERRL, normal ocular movement - ENT normal pinna, normal nares, normal mucosa, no hearing loss, no congestion - Head Head exam IM: Present: atraumatic, normocephalic - Neck no masses, no bruits, trachea midline, no lymphadenopathy, no venous distension - Cardiovascular Cardiovascular exam IM: Present: normal rate and rhythm, RRR, +S1, +S2. Absent: JVD, tachycardia - Respiratory normal expansion, normal respiratory effort, clear to auscultation - Abdomen Abdomen: Present: soft, tender (mild incisional tenderness; good active bowel sounds; ileostomy stoma right lower quadrant), bowel sounds Hernia: Present: none - Genitourinary Present: normal external genitalia - Integumentary Present: no rash, no growths, no abnormal pigmentation - Neurologic Present: normal coordination, normal sensation - Musculoskeletal Present: normal gait, normal posture - Psychiatric Present: oriented to time, oriented to person, oriented to place, speech is normal, memory intact Discharge Plan - Patient/Caregiver Discharge Instructions Activity: increase activity as tolerated, resume usual activities as tolerated Diet: Regular Diet Prescriptions: oxyCODONE HCL [Roxicodone] 10 mg PO Q4HP PRN #60 tab PRN Reason: Pain Level 3-6 - Follow up Plan Follow up with: Bertha Currie MD [Physician] - 12/18/18 3:00 pm Douglas Haque MD [Primary Care Provider] - Disposition: Home, Self-Care Prognosis: Good Rehab Potential: Good I certify that the patient requires SNF services.: No Overall status at discharge: patient is progressing back to baseline Pending Studies Resuscitation Status Full Code Diet Regular Diet Start SatJan 01 1256 Guaifenesin (Mucinex) 600 mg PO BID MALENA Last Admin: 01/03/19 08:21 Dose: 600 mg Documented by: Admin: 01/02/19 20:09 Dose: 600 mg Documented by: Admin: 01/02/19 07:58 Dose: 600 mg Documented by: [email or web address] Admin: 01/01/19 20:11 Dose: 600 mg Documented by: Admin: 01/01/19 09:43 Dose: 600 mg Documented by: Admin: 12/31/18 20:23 Dose: 600 mg Documented by: Admin: 12/31/18 11:02 Dose: 600 mg Documented by: AMADOU Cosigned by: PEYTON Admin: 12/30/18 22:31 Dose: 600 mg Documented by: Admin: 12/30/18 10:07 Dose: 600 mg Documented by: LAURO Cosigned by: PEYTON Admin: 12/29/18 22:13 Dose: 600 mg Documented by: Admin: 12/29/18 09:14 Dose: 600 mg Documented by: [email or web address] Admin: 12/28/18 21:24 Dose: 600 mg Documented by: Admin: 12/28/18 08:43 Dose: 600 mg Documented by: Admin: 12/27/18 20:43 Dose: 600 mg Documented by: Admin: 12/27/18 09:04 Dose: 600 mg Documented by: Admin: 12/26/18 22:35 Dose: 600 mg Documented by: Admin: 12/26/18 08:59 Dose: 600 mg Documented by: Admin: 12/25/18 20:21 Dose: 600 mg Documented by: Admin: 12/25/18 09:43 Dose: 600 mg Documented by: Admin: 12/24/18 23:04 Dose: 600 mg Documented by: ETHAN Heparin Sodium (Porcine) (Heparin Flush) 2 ml IV Q12 MALENA Last Admin: 01/03/19 08:57 Dose: Not Given Documented by: Admin: 01/02/19 20:10 Dose: 2 ml Documented by: Admin: 01/02/19 08:11 Dose: Not Given Documented by: Admin: 01/01/19 20:05 Dose: Not Given Documented by: Admin: 01/01/19 10:41 Dose: Not Given Documented by: Admin: 12/31/18 20:24 Dose: Not Given Documented by: Admin: 12/31/18 11:31 Dose: Not Given Documented by: [email or web address] Admin: 12/30/18 22:31 Dose: Not Given Documented by: Admin: 12/30/18 12:24 Dose: Not Given Documented by: [email or web address] Admin: 12/29/18 22:12 Dose: Not Given Documented by: [email or web address] Hydromorphone HCl (Dilaudid) 1 mg IV Q1-2HP PRN PRN Reason: PAIN LEVEL > 6 Last Admin: 01/03/19 11:27 Dose: 1 mg Documented by: Admin: 01/03/19 08:21 Dose: 1 mg Documented by: [email or web address] Admin: 01/03/19 03:13 Dose: 1 mg Documented by: Admin: 01/03/19 01:38 Dose: 1 mg Documented by: Admin: 01/02/19 22:03 Dose: 1 mg Documented by: Admin: 01/02/19 17:34 Dose: 1 mg Documented by: [email or web address] Admin: 01/02/19 14:12 Dose: 1 mg Documented by: Admin: 01/02/19 12:28 Dose: 1 mg Documented by: Admin: 01/02/19 10:20 Dose: 1 mg Documented by: Admin: 01/02/19 08:59 Dose: 1 mg Documented by: Admin: 01/02/19 07:06 Dose: 1 mg Documented by: Admin: 01/02/19 05:47 Dose: 1 mg Documented by: Admin: 01/02/19 01:25 Dose: 1 mg Documented by: Admin: 01/01/19 23:19 Dose: 1 mg Documented by: Admin: 01/01/19 20:11 Dose: 1 mg Documented by: Admin: 01/01/19 16:36 Dose: 1 mg Documented by: Admin: 01/01/19 13:45 Dose: 1 mg Documented by: Admin: 01/01/19 12:17 Dose: 1 mg Documented by: [email or web address] Admin: 01/01/19 10:34 Dose: 1 mg Documented by: Admin: 01/01/19 08:12 Dose: 1 mg Documented by: Admin: 01/01/19 06:13 Dose: 1 mg Documented by: Admin: 01/01/19 03:43 Dose: 1 mg Documented by: Admin: 12/31/18 23:02 Dose: 1 mg Documented by: Admin: 12/31/18 17:22 Dose: 1 mg Documented by: [email or web address] Admin: 12/31/18 15:58 Dose: 1 mg Documented by: [email or web address] Admin: 12/31/18 13:48 Dose: 1 mg Documented by: [email or web address] Admin: 12/31/18 12:18 Dose: 1 mg Documented by: AMADOU Cosigned by: PEYTON Admin: 12/31/18 10:36 Dose: 1 mg Documented by: AMADOU Cosigned by: [email or web address] Admin: 12/31/18 07:08 Dose: 1 mg Documented by: AMADOU Medinaigned by: [email or web address] Admin: 12/31/18 06:15 Dose: 1 mg Documented by: Admin: 12/31/18 03:11 Dose: 1 mg Documented by: Admin: 12/31/18 00:28 Dose: 1 mg Documented by: Admin: 12/30/18 20:21 Dose: 1 mg Documented by: Admin: 12/30/18 18:06 Dose: 1 mg Documented by: Admin: 12/30/18 15:39 Dose: 1 mg Documented by: LAURO Cosigned by: SYED Admin: 12/30/18 12:01 Dose: 1 mg Documented by: [email or web address] Admin: 12/30/18 10:09 Dose: 1 mg Documented by: LAURO Cosigned by: PEYTON Admin: 12/30/18 07:05 Dose: 1 mg Documented by: [email or web address] Admin: 12/30/18 03:00 Dose: 1 mg Documented by: Admin: 12/29/18 22:15 Dose: 1 mg Documented by: Admin: 12/29/18 17:43 Dose: 1 mg Documented by: [email or web address] Admin: 12/29/18 16:36 Dose: 1 mg Documented by: [email or web address] Admin: 12/29/18 15:13 Dose: 1 mg Documented by: [email or web address] Admin: 12/29/18 12:44 Dose: 1 mg Documented by: [email or web address] Admin: 12/29/18 10:52 Dose: 1 mg Documented by: [email or web address] Admin: 12/29/18 09:22 Dose: 1 mg Documented by: [email or web address] Admin: 12/29/18 07:57 Dose: 1 mg Documented by: [email or web address] Admin: 12/29/18 06:15 Dose: 1 mg Documented by: Admin: 12/29/18 03:51 Dose: 1 mg Documented by: Admin: 12/28/18 21:22 Dose: 1 mg Documented by: Admin: 12/28/18 19:56 Dose: 1 mg Documented by: Admin: 12/28/18 16:37 Dose: 1 mg Documented by: Admin: 12/28/18 13:41 Dose: 1 mg Documented by: Admin: 12/28/18 11:03 Dose: 1 mg Documented by: Admin: 12/28/18 09:56 Dose: 1 mg Documented by: Admin: 12/28/18 07:34 Dose: 1 mg Documented by: Admin: 12/28/18 05:03 Dose: 1 mg Documented by: Admin: 12/28/18 01:59 Dose: 1 mg Documented by: Admin: 12/27/18 22:27 Dose: 1 mg Documented by: Admin: 12/27/18 19:06 Dose: 1 mg Documented by: Admin: 12/27/18 17:08 Dose: 1 mg Documented by: Admin: 12/27/18 16:02 Dose: 1 mg Documented by: [email or web address] Admin: 12/27/18 14:33 Dose: 1 mg Documented by: [email or web address] Admin: 12/27/18 11:19 Dose: 1 mg Documented by: [email or web address] Admin: 12/27/18 09:06 Dose: 1 mg Documented by: [email or web address] Admin: 12/27/18 07:38 Dose: 1 mg Documented by: [email or web address] Admin: 12/27/18 06:06 Dose: 1 mg Documented by: Admin: 12/27/18 03:47 Dose: 1 mg Documented by: Admin: 12/27/18 02:44 Dose: 1 mg Documented by: Admin: 12/27/18 01:06 Dose: 1 mg Documented by: Admin: 12/26/18 22:33 Dose: 1 mg Documented by: Admin: 12/26/18 20:28 Dose: 1 mg Documented by: Admin: 12/26/18 19:11 Dose: 1 mg Documented by: Admin: 12/26/18 17:26 Dose: 1 mg Documented by: [email or web address] Admin: 12/26/18 16:25 Dose: 1 mg Documented by: [email or web address] Admin: 12/26/18 15:20 Dose: 1 mg Documented by: [email or web address] Admin: 12/26/18 14:12 Dose: 1 mg Documented by: [email or web address] Admin: 12/26/18 13:10 Dose: 1 mg Documented by: [email or web address] Admin: 12/26/18 11:27 Dose: 1 mg Documented by: [email or web address] Admin: 12/26/18 10:04 Dose: 1 mg Documented by: [email or web address] Admin: 12/26/18 08:58 Dose: 1 mg Documented by: Admin: 12/26/18 07:43 Dose: 1 mg Documented by: Admin: 12/26/18 05:18 Dose: 1 mg Documented by: Admin: 12/26/18 03:25 Dose: 1 mg Documented by: Admin: 12/26/18 02:06 Dose: 1 mg Documented by: Admin: 12/26/18 00:04 Dose: 1 mg Documented by: Admin: 12/25/18 22:29 Dose: 1 mg Documented by: Admin: 12/25/18 20:45 Dose: 1 mg Documented by: Admin: 12/25/18 19:43 Dose: 1 mg Documented by: Admin: 12/25/18 17:33 Dose: 1 mg Documented by: Admin: 12/25/18 16:13 Dose: 1 mg Documented by: Admin: 12/25/18 14:58 Dose: 1 mg Documented by: Admin: 12/25/18 13:39 Dose: 1 mg Documented by: Admin: 12/25/18 11:42 Dose: 1 mg Documented by: Admin: 12/25/18 07:02 Dose: 1 mg Documented by: Admin: 12/25/18 04:55 Dose: 1 mg Documented by: Admin: 12/25/18 03:18 Dose: 1 mg Documented by: Admin: 12/25/18 02:11 Dose: 1 mg Documented by: Admin: 12/25/18 00:15 Dose: 1 mg Documented by: Admin: 12/24/18 23:15 Dose: 1 mg Documented by: Admin: 12/24/18 18:59 Dose: 1 mg Documented by: Admin: 12/24/18 17:14 Dose: 1 mg Documented by: Admin: 12/24/18 16:13 Dose: 1 mg Documented by: SALIMA Estevez by: PEYTON Admin: 12/24/18 15:08 Dose: 1 mg Documented by: Admin: 12/24/18 14:08 Dose: 1 mg Documented by: Admin: 12/24/18 12:55 Dose: 1 mg Documented by: Admin: 12/24/18 11:25 Dose: 1 mg Documented by: SALIMA Estevez by: PEYTON Admin: 12/24/18 09:55 Dose: 1 mg Documented by: Admin: 12/24/18 08:00 Dose: 1 mg Documented by: SALIMA Estevez by: PEYTON Admin: 12/24/18 05:30 Dose: 1 mg Documented by: Admin: 12/24/18 04:33 Dose: 1 mg Documented by: Admin: 12/24/18 03:17 Dose: 1 mg Documented by: Admin: 12/24/18 01:41 Dose: 1 mg Documented by: Admin: 12/24/18 00:48 Dose: 1 mg Documented by: [email or web address] Admin: 12/23/18 23:31 Dose: 1 mg Documented by: [email or web address] Admin: 12/23/18 21:48 Dose: 1 mg Documented by: Admin: 12/23/18 19:56 Dose: 1 mg Documented by: Admin: 12/23/18 17:59 Dose: 1 mg Documented by: Admin: 12/23/18 14:49 Dose: 1 mg Documented by: Admin: 12/23/18 13:13 Dose: 1 mg Documented by: Admin: 12/23/18 11:26 Dose: 1 mg Documented by: Admin: 12/23/18 09:42 Dose: 1 mg Documented by: Admin: 12/23/18 08:24 Dose: 1 mg Documented by: [email or web address] [facility]: 01/03/19 08:21 Dose: 125 mcg Documented by: Admin: 01/02/19 07:07 Dose: 125 mcg Documented by: Admin: 01/01/19 08:13 Dose: 125 mcg Documented by: Admin: 12/31/18 07:07 Dose: 125 mcg Documented by: AMADOU Medinaigned by: [email or web address] Admin: 12/30/18 08:34 Dose: 125 mcg Documented by: [email or web address] Lorazepam (Ativan) 0.5 mg IV Q6H [facility] Admin: 01/03/19 13:20 Dose: 0.5 mg Documented by: Admin: 01/03/19 05:14 Dose: Not Given Documented by: Admin: 01/03/19 00:00 Dose: Not Given Documented by: Admin: 01/02/19 17:50 Dose: Not Given Documented by: Admin: 01/02/19 11:53 Dose: Not Given Documented by: Admin: 01/02/19 05:45 Dose: Not Given Documented by: Admin: 01/01/19 23:18 Dose: Not Given Documented by: Admin: 01/01/19 18:01 Dose: Not Given Documented by: Admin: 01/01/19 12:43 Dose: Not Given Documented by: Admin: 01/01/19 06:04 Dose: Not Given Documented by: Admin: 01/01/19 00:06 Dose: Not Given Documented by: Admin: 12/31/18 18:21 Dose: Not Given Documented by: [email or web address] Admin: 12/31/18 13:11 Dose: Not Given Documented by: [email or web address] Admin: 12/31/18 06:16 Dose: Not Given Documented by: Admin: 12/31/18 00:30 Dose: Not Given Documented by: Admin: 12/30/18 18:07 Dose: Not Given Documented by: [email or web address] Admin: 12/30/18 12:27 Dose: Not Given Documented by: [email or web address] Admin: 12/30/18 06:02 Dose: Not Given Documented by: Admin: 12/30/18 00:23 Dose: Not Given Documented by: Admin: 12/29/18 19:06 Dose: Not Given Documented by: [email or web address] Admin: 12/29/18 12:23 Dose: Not Given Documented by: [email or web address] Admin: 12/29/18 06:11 Dose: Not Given Documented by: Admin: 12/29/18 01:22 Dose: 0.5 mg Documented by: Admin: 12/28/18 17:51 Dose: 0.5 mg Documented by: Admin: 12/28/18 12:10 Dose: 0.5 mg Documented by: Admin: 12/28/18 05:56 Dose: 0.5 mg Documented by: Admin: 12/27/18 23:52 Dose: 0.5 mg Documented by: Admin: 12/27/18 17:51 Dose: 0.5 mg Documented by: Admin: 12/27/18 12:19 Dose: 0.5 mg Documented by: Admin: 12/27/18 05:37 Dose: 0.5 mg Documented by: Admin: 12/27/18 00:48 Dose: 0.5 mg Documented by: Admin: 12/26/18 17:44 Dose: 0.5 mg Documented by: Admin: 12/26/18 12:50 Dose: 0.5 mg Documented by: Admin: 12/26/18 05:17 Dose: 0.5 mg Documented by: Admin: 12/26/18 00:05 Dose: 0.5 mg Documented by: Admin: 12/25/18 17:32 Dose: 0.5 mg Documented by: ANGELY Magnesium Hydroxide (Milk Of Magnesia) 30 ml PO Q8H MALENA Last Admin: 01/03/19 08:21 Dose: 30 ml Documented by: Admin: 01/02/19 23:59 Dose: 30 ml Documented by: Admin: 01/02/19 16:04 Dose: 30 ml Documented by: Admin: 01/02/19 07:58 Dose: 30 ml Documented by: Admin: 01/01/19 23:19 Dose: 30 ml Documented by: [email or web address] Admin: 01/01/19 16:37 Dose: 30 ml Documented by: CLAUDETOROCIO Admin: 01/01/19 09:43 Dose: 30 ml Documented by: Admin: 01/01/19 02:15 Dose: 30 ml Documented by: Admin: 12/31/18 15:57 Dose: 30 ml Documented by: [email or web address] Admin: 12/31/18 10:35 Dose: 30 ml Documented by: AMADOU Cosigned by: VALERIA Admin: 12/31/18 01:04 Dose: 30 ml Documented by: Admin: 12/30/18 18:05 Dose: 30 ml Documented by: Admin: 12/30/18 10:04 Dose: 30 ml Documented by: LAURO Cosigned by: PEYTON Admin: 12/30/18 00:36 Dose: 30 ml Documented by: Admin: 12/29/18 17:44 Dose: 30 ml Documented by: [email or web address] Admin: 12/29/18 09:13 Dose: 30 ml Documented by: [email or web address] Admin: 12/29/18 02:00 Dose: 30 ml Documented by: Admin: 12/28/18 15:17 Dose: 30 ml Documented by: Admin: 12/28/18 08:43 Dose: 30 ml Documented by: Admin: 12/27/18 23:52 Dose: 30 ml Documented by: Admin: 12/27/18 17:08 Dose: 30 ml Documented by: [email or web address] Admin: 12/27/18 09:04 Dose: 30 ml Documented by: [email or web address] Admin: 12/27/18 00:51 Dose: 30 ml Documented by: Admin: 12/26/18 16:15 Dose: 30 ml Documented by: [email or web address] Oxycodone HCl (Roxicodone) 10 mg PO Q4HP PRN PRN Reason: PAIN LEVEL 3-6 Last Admin: 01/03/19 09:20 Dose: 10 mg Documented by: Admin: 01/03/19 05:14 Dose: 10 mg Documented by: Admin: 01/02/19 23:59 Dose: 10 mg Documented by: Admin: 01/02/19 20:09 Dose: 10 mg Documented by: Admin: 01/02/19 16:03 Dose: 10 mg Documented by: Admin: 01/02/19 11:42 Dose: 10 mg Documented by: Admin: 01/02/19 08:01 Dose: 10 mg Documented by: Admin: 01/02/19 03:32 Dose: 10 mg Documented by: Admin: 01/01/19 22:05 Dose: 10 mg Documented by: Admin: 01/01/19 17:58 Dose: 10 mg Documented by: [email or web address] Pantoprazole Sodium (Protonix) 40 mg IV BIDAC [facility] Admin: 01/03/19 08:21 Dose: 40 mg Documented by: Admin: 01/02/19 16:03 Dose: 40 mg Documented by: Admin: 01/02/19 07:05 Dose: 40 mg Documented by: Admin: 01/01/19 16:35 Dose: 40 mg Documented by: Admin: 01/01/19 08:13 Dose: 40 mg Documented by: Admin: 12/31/18 16:39 Dose: 40 mg Documented by: [email or web address] Admin: 12/31/18 07:07 Dose: 40 mg Documented by: AMADOU Medinaigned by: [email or web address] Admin: 12/30/18 17:57 Dose: 40 mg Documented by: [email or web address] Admin: 12/30/18 08:36 Dose: 40 mg Documented by: [email or web address] Admin: 12/29/18 17:44 Dose: 40 mg Documented by: [email or web address] Admin: 12/29/18 07:56 Dose: 40 mg Documented by: [email or web address] Admin: 12/28/18 16:37 Dose: 40 mg Documented by: Admin: 12/28/18 07:34 Dose: 40 mg Documented by: Admin: 12/27/18 17:07 Dose: 40 mg Documented by: [email or web address] Admin: 12/27/18 07:38 Dose: 40 mg Documented by: [email or web address] Admin: 12/26/18 16:26 Dose: 40 mg Documented by: [email or web address] Admin: 12/26/18 07:44 Dose: 40 mg Documented by: [email or web address] Admin: 12/25/18 17:12 Dose: 40 mg Documented by: Admin: 12/25/18 07:14 Dose: 40 mg Documented by: Admin: 12/24/18 17:13 Dose: 40 mg Documented by: Admin: 12/24/18 08:09 Dose: 40 mg Documented by: SALIMA Medinaigned by: PEYTON Admin: 12/23/18 18:00 Dose: 40 mg Documented by: Admin: 12/23/18 07:16 Dose: 40 mg Documented by: AIMEE Prednisone (Prednisone) 20 mg PO BIDCC [facility] Admin: 01/03/19 08:21 Dose: 20 mg Documented by: Admin: 01/02/19 18:39 Dose: 20 mg Documented by: CLAUDETOROCIO Admin: 01/02/19 07:06 Dose: 20 mg Documented by: Admin: 01/01/19 16:36 Dose: 20 mg Documented by: Admin: 01/01/19 08:13 Dose: 20 mg Documented by: Admin: 12/31/18 18:20 Dose: 20 mg Documented by: [email or web address] Admin: 12/31/18 10:35 Dose: 20 mg Documented by: AMADOU Medinaigned by: [email or web address] Admin: 12/30/18 18:05 Dose: 20 mg Documented by: [email or web address] Admin: 12/30/18 10:39 Dose: Not Given Documented by: LAURO Promethazine HCl (Phenergan) 12.5 mg IV Q6H [facility] Admin: 01/03/19 08:57 Dose: Not Given Documented by: Admin: 01/03/19 03:04 Dose: Not Given Documented by: Admin: 01/02/19 20:10 Dose: Not Given Documented by: Admin: 01/02/19 14:13 Dose: Not Given Documented by: CLAUDETOROCIO Admin: 01/02/19 08:12 Dose: Not Given Documented by: Admin: 01/02/19 03:27 Dose: Not Given Documented by: Admin: 01/01/19 20:06 Dose: Not Given Documented by: Admin: 01/01/19 17:24 Dose: Not Given Documented by: Admin: 01/01/19 10:40 Dose: Not Given Documented by: Admin: 01/01/19 02:19 Dose: Not Given Documented by: Admin: 12/31/18 22:00 Dose: Not Given Documented by: Admin: 12/31/18 15:29 Dose: Not Given Documented by: [email or web address] Admin: 12/31/18 11:31 Dose: Not Given Documented by: [email or web address] Admin: 12/31/18 02:56 Dose: Not Given Documented by: Admin: 12/30/18 22:31 Dose: Not Given Documented by: Admin: 12/30/18 15:41 Dose: Not Given Documented by: Admin: 12/30/18 12:24 Dose: Not Given Documented by: [email or web address] Admin: 12/30/18 02:59 Dose: Not Given Documented by: Admin: 12/29/18 22:13 Dose: Not Given Documented by: Admin: 12/29/18 17:44 Dose: Not Given Documented by: [email or web address] Admin: 12/29/18 09:25 Dose: Not Given Documented by: [email or web address] Admin: 12/29/18 03:52 Dose: Not Given Documented by: Admin: 12/28/18 22:34 Dose: 12.5 mg Documented by: Admin: 12/28/18 15:13 Dose: 12.5 mg Documented by: Admin: 12/28/18 08:44 Dose: 12.5 mg Documented by: Admin: 12/28/18 03:14 Dose: 12.5 mg Documented by: Admin: 12/27/18 20:43 Dose: 12.5 mg Documented by: Admin: 12/27/18 15:27 Dose: 12.5 mg Documented by: [email or web address] Admin: 12/27/18 11:19 Dose: 12.5 mg Documented by: [email or web address] Admin: 12/27/18 03:59 Dose: 12.5 mg Documented by: Admin: 12/26/18 23:10 Dose: 12.5 mg Documented by: Admin: 12/26/18 15:08 Dose: 12.5 mg Documented by: Admin: 12/26/18 09:48 Dose: 12.5 mg Documented by: Admin: 12/26/18 03:24 Dose: 12.5 mg Documented by: Admin: 12/25/18 20:46 Dose: 12.5 mg Documented by: Admin: 12/25/18 12:18 Dose: 12.5 mg Documented by: Admin: 12/25/18 05:46 Dose: 12.5 mg Documented by: Admin: 12/25/18 00:16 Dose: 12.5 mg Documented by: Admin: 12/24/18 19:06 Dose: 12.5 mg Documented by: ETHAN Sodium Chloride (Saline Flush) 10 ml IV UD PRN PRN Reason: Vaginal Dryness Last Admin: 01/02/19 01:26 Dose: 10 ml Documented by: ETHAN Sodium Chloride (Saline Flush) 10 ml IV Q12 MALENA Last Admin: 01/03/19 09:22 Dose: 10 ml Documented by: Admin: 01/02/19 20:10 Dose: 10 ml Documented by: Admin: 01/02/19 09:00 Dose: 10 ml Documented by: Admin: 01/01/19 20:05 Dose: Not Given Documented by: Admin: 01/01/19 11:19 Dose: Not Given Documented by: Admin: 12/31/18 20:24 Dose: Not Given Documented by: Admin: 12/31/18 11:31 Dose: Not Given Documented by: [email or web address] Admin: 12/30/18 22:32 Dose: 10 ml Documented by: Admin: 12/30/18 12:37 Dose: 10 ml Documented by: [email or web address] Admin: 12/29/18 22:13 Dose: 10 ml Documented by: Admin: 12/29/18 09:21 Dose: Not Given Documented by: [email or web address] Admin: 12/28/18 21:23 Dose: 10 ml Documented by: Admin: 12/28/18 08:48 Dose: 10 ml Documented by: Admin: 12/27/18 20:44 Dose: 10 ml Documented by: Admin: 12/27/18 09:04 Dose: 10 ml Documented by: Admin: 12/26/18 22:35 Dose: 10 ml Documented by: Admin: 12/26/18 08:59 Dose: 10 ml Documented by: Admin: 12/25/18 20:22 Dose: 10 ml Documented by: Admin: 12/25/18 10:09 Dose: 10 ml Documented by: Admin: 12/24/18 22:18 Dose: 10 ml Documented by: Admin: 12/24/18 09:40 Dose: 10 ml Documented by: [email or web address] Medinaigned by: [email or web address] Admin: 12/23/18 21:49 Dose: 10 ml Documented by: Admin: 12/23/18 09:44 Dose: 10 ml Documented by: Admin: 12/23/18 00:47 Dose: 10 ml Documented by: WILLIAM Sodium Chloride (Saline Flush) 10 ml IV UD PRN PRN Reason: FLUSH Last Admin: 01/02/19 22:03 Dose: 10 ml Documented by: Admin: 01/02/19 05:47 Dose: 10 ml Documented by: ETHAN Sodium Chloride (Saline Flush) 10 ml IV Q12 MALENA Last Admin: 01/03/19 08:57 Dose: Not Given Documented by: Admin: 01/02/19 20:11 Dose: Not Given Documented by: Admin: 01/02/19 09:01 Dose: Not Given Documented by: Admin: 01/01/19 20:06 Dose: Not Given Documented by: Admin: 01/01/19 11:20 Dose: Not Given Documented by: Admin: 12/31/18 20:24 Dose: Not Given Documented by: Admin: 12/31/18 11:31 Dose: Not Given Documented by: [email or web address] Admin: 12/30/18 22:32 Dose: 10 ml Documented by: Admin: 12/30/18 12:25 Dose: Not Given Documented by: [email or web address] Admin: 12/29/18 22:14 Dose: 10 ml Documented by: [email or web address] Throat Lozenges (Cepacol) 1 lozenge PO PRN PRN PRN Reason: Sore Throat Last Admin: 12/25/18 22:33 Dose: 1 lozenge Documented by: ETHAN Shift Summary 01/03/19 04:53 Shift Summary by Gus Borden Pt has rested fairly well tonight. She has had 3x doses of IV Dilaudid - last @ 0315. No nausea tonight - she continues to decline both the scheduled IV Ativan, & sched IV Promethazine. 2x doses PO Roxicodone 10mg - last @ 0001. ABD dressings & appliance changed yesterday w/ gas station attendant - leaking of appliance this shift. She is up AMB to & from [facility] (I) - emptying her ostomy (I), & voiding QS into toilet. POC LT chest flushed & patent VS - WNL on R.A.. She remains A&Ox4, calm, pleasant, & cooperative. Looking forward to D/C later this am. Initialized on 01/03/19 04:53 - END OF NOTE
[2019-01-03] MEDS ORDERED: HEPARIN SODIUM,PORCINE/PF 500 UNIT/5 ML SYRINGE IV ONE (15:24)
--- NOTE | 2019-01-07 13:35 | Operative Note ---
DATE OF OPERATION: 12/22/2018 PREOPERATIVE DIAGNOSES: Colonic pseudoobstruction with small-bowel obstruction. POSTOPERATIVE DIAGNOSES: Extensive peritoneal adhesions with small-bowel obstruction, colonic pseudoobstruction. PROCEDURE: 1. Exploratory laparotomy with total small bowel adhesiolysis. 2. Total colectomy with ileostomy. 3. Removal of a Parra's tube. SURGEON: Bertha Currie M.D. DESCRIPTION OF PROCEDURE: Under general anesthesia, the patient's abdomen, including the end of the Parra's tube, was prepped and draped in a sterile field. The old midline incision was opened. There were extensive adhesions to the anterior abdominal wall between the bowel and the residual omentum. This was taken down using electrocautery and blunt dissection. The small bowel was massively adhesed throughout, but there were no areas of obstruction of the small bowel because of the position of the Parra's tube. The adhesions were taken down so that I could have access to the free peritoneal cavity. There were some smooth curvatures where the mesentery was adhesed, but the bowel was not obstructed, and these were left intact to hopefully prevent further acute angulation and obstruction. Next, the end of the small bowel was followed to the cecum. The Parra's tube, which was placed through the abdominal wall into the lateral wall of the cecum, was dissected free and was transected. It was then removed in its entirety. The cecum was then mobilized along the lateral attachments up to the hepatic flexure. The gastrocolic omentum was divided using LigaSure over to the splenic flexure. The descending colon was then mobilized down to the colostomy. The colostomy was divided adjacent to the abdominal wall. The mesocolon was then sequentially divided, starting at the cecum and continuing around to the descending colon. Specimen was passed off. Copious irrigation was carried out. The stoma for the ileostomy was developed in the right lower quadrant. The bowel was pulled through this and was sutured intraperitoneal to the peritoneum using interrupted 3-0 silk. Mesenteric defect was closed along the lateral abdominal wall using interrupted 3-0 silk. Next, the old colostomy end was removed, and the defect was closed with interrupted #1 Prolene on the muscle and fascia and 2-0 Monocryl in the subcutaneous fat. Sponge, needle, instrument, and blade counts were verified as correct. Nasogastric tube was positioned in the stomach. The fascia and peritoneum were closed with running #1 Prolene. Subcutaneous tissue was closed with 2-0 Monocryl. The skin was closed with kori. The skin at the old stoma site was closed with kori. Tegaderm dressings were placed over the incision. Afterwards, the ileostomy was matured with suture of the wall of the ileum to the anterior rectus fascia using interrupted 3-0 silk. The end of the ileum was then sutured to the dermis circumferentially using running 3-0 Vicryl. A stoma appliance was placed. The patient tolerated the procedure well. She was awakened, extubated, and transferred to the postanesthetic care unit in stable, satisfactory condition. LCS:naldo Job ID: [id number] Doc ID: [id number] Bertha Currie M.D.
== END 2019-01-03 15:55 | disposition home or self-care (01) | DRG 330 ==
LOC: MEDSUR 04:16 → ED 04:16 → OBSVTOIN 08:49 → MEDSUR 08:51
PROVIDERS: ADMIT Family Medicine Adult Medicine; ATTEND Family Medicine Adult Medicine

== ENCOUNTER 2019-01-06 00:06 | Inpatient (IN) ==
[2019-01-06] MEDS ORDERED: PROMETHAZINE 25 MG/ML VIAL IV ONE ×2 (01:02→03:26)
--- NOTE | 2019-01-06 01:28 | Emergency Department Note ---
Abdominal Pain HPI - General Chief Complaint: Abdominal Pain Stated Complaint: abd. pain Time Seen by Provider: 01/06/19 00:30 Mode of arrival: wheelchair - History of Present Illness HPI Narrative: This pleasant 58-year-old female was discharged from the hospital 2 days ago after a fairly long hospital stay following total colectomy and ileostomy on the right side. Has been reports that she has been in the hospital with 14 different stays in the last 19 months with a surgical interventions. Initially going home she seemed to be doing all whole lot better but then developed nausea and vomiting and abdominal pain which is just gradually worsened. She tried drinking a fair amount of water early on because of her ileostomy putting out quite a bit of fluid. She became dehydrated she feels. Initially she was taking oxycodone 2 pills every 4 hours now she has been down to 1 pill every 4 hours. She has been trying to take nausea medication but it has not been working that well. This has been promethazine orally. REVIEW OF SYSTEMS: Denies fevers. Has felt chills and sweats. Denies chest pain Minimal or mild short of breath but no cough. No dysuria or frequency. Some frequent headaches, weakness and lightheaded/dizzy. Some chronic anxiety and depression. Has felt tired/fatigued a lot as well. - Related Data Home Medications Medication Instructions Recorded Confirmed DULoxetine [Cymbalta] 30 mg PO BID 11/30/16 11/28/18 Levothyroxine [Synthroid] 250 mcg PO QAMAC 08/20/17 11/28/18 Acetaminophen W/Codeine #3 2 cap PO Q4-6HP PRN 09/18/17 11/28/18 [Tylenol #3] Naproxen (Pp) [Aleve 220Mg (Pp)] 2 tab PO BID PRN 09/18/17 11/28/18 Polyethylene Glycol 3350 [Miralax] 17 gm PO BID 09/18/17 11/28/18 calcitriol 0.25 mcg capsule 0.5 mcg PO TID cap 11/05/17 11/28/18 Previous Rx's Medication Instructions Recorded predniSONE [Prednisone] 20 mg PO QAC #4 tab 05/18/16 Lisinopril [Zestril] 20 mg PO BID #60 tab 12/06/17 Calcium Carbonate 1,250 mg PO BID #350 oral.susp 07/12/18 Magnesium Oxide 400 mg PO TID #90 tab 07/12/18 metFORMIN HCL [Metformin HCl] 500 mg PO DAILY #30 tab 10/17/18 Mupirocin Oint 2% [Bactroban Oint 1 dose TOPICAL BID #0 tube 11/27/18 2%] oxyCODONE HCL [Roxicodone] 10 mg PO Q4HP PRN #60 tab 01/03/19 Allergies Allergy/AdvReac Type Severity Reaction Status Date / Time Sulfa (Sulfonamide Allergy Severe Anaphylaxis Verified 11/28/18 10:58 Antibiotics) adhesive tape AdvReac Mild Blister Verified 11/28/18 10:58 metoclopramide [From Reglan] AdvReac Mild Anxiety Verified 11/28/18 10:58 steri strips Allergy Severe Blister Uncoded 11/03/18 09:30 Abdominal Pain PMH - Past Medical History [facility] Narrative: Medical History (Last Updated 01/06/19 @ 03:11 by Robb Goldberg DO) Diabetes mellitus type 2, uncontrolled (Chronic) Obesity, Class II, BMI 35-39.9 (Chronic) Hypertension (Chronic) Recurrent intestinal obstruction (Chronic) Chronic use of steroids (Chronic) Abnormal liver enzymes (Chronic) Hypothyroidism (Chronic) Myasthenia gravis (Chronic) Polyglandular autoimmune syndrome (Chronic) Sarcoidosis (Chronic) Hypocalcemia (Chronic) Achalasia and cardiospasm (Chronic) Constipation due to pain medication therapy (Chronic) Supraventricular tachycardia (Resolved) Encounter for care related to Port-a-Cath (Chronic) Abdominal pain (Resolved) Abdominal wound dehiscence (Resolved) Adverse reaction to drug (Resolved) Anaphylaxis (Resolved) Bowel obstruction (Resolved) 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) Constipation due to neurogenic bowel (Resolved) Fecal impaction (Resolved) Foot sprain (Resolved) Ileus (Resolved) Infiltrate of lung present on imaging of chest (Resolved) Nausea (Resolved) Nausea & vomiting (Resolved) Obstruction of descending colon (Resolved) Pancreatitis (Resolved) Parastomal hernia with obstruction, without gangrene (Resolved) Partial intestinal obstruction, unspecified as to cause (Resolved) Pneumonia (Resolved) Primary chronic pseudo-obstruction of large intestine (Resolved) Pseudoobstruction of colon (Resolved) Pyelonephritis (Resolved) Sepsis associated hypotension (Resolved) Severe sepsis (Resolved) Sigmoid volvulus (Resolved) Small bowel obstruction (Resolved) Small bowel obstruction (Resolved) Small bowel obstruction (Resolved) Small bowel obstruction due to adhesions (Resolved) Small bowel obstruction due to postoperative adhesions (Resolved) Small bowel obstruction, partial (Resolved) UTI (urinary tract infection) (Resolved) Volvulus of sigmoid colon (Resolved) Past Surgical History (Last Updated 01/06/19 @ 03:11 by Robb Goldberg DO) S/P ileostomy (Chronic) History of exploratory laparotomy (Acute) History of exploratory laparotomy (Acute) History of exploratory laparotomy (Acute) History of exploratory laparotomy (Acute) Family History (Last Reviewed 11/03/18 @ 09:33 by Jayla Hay CMA) Father CAD (coronary artery disease) Mother CAD (coronary artery disease) Grandfather CVA (cerebral vascular accident) Grandmother CVA (cerebral vascular accident) Medical history: Reports: COPD, hypertension, hypothyroidism, other (Myasthenia gravis). Denies: DVT, pulmonary embolus Psychiatric history: Reports: anxiety, depression GREEN CHAINER history: Reports: non-contributory Family history: Reports: other - Social History Smoking status: Former smoker Alcohol use: Reports: None Drug use: Reports: none. Denies: marijuana Physical Exam Limitations: no limitations General appearance: alert, in no apparent distress Head: atraumatic, normocephalic Eye: Present: EOMI ENT: normal oropharynx, mucous membranes moist (only mildly or slightly) Neck: Present: trachea midline. Absent: lymphadenopathy, thyromegaly Chest: Present: symmetric chest wall rise Respiratory: Present: normal lung sounds bilaterally. Absent: respiratory distress, wheezes, stridor, accessory muscle use, prolonged expiratory phase Cardiovascular: Present: regular rate, normal rhythm. Absent: systolic murmur, diastolic murmur Abdominal: Present: soft, tenderness, guarding. Absent: distention, rebound, rigidity, organomegaly, mass Abdominal tenderness: Present: diffuse, severe Extremities: Absent: pedal edema, pretibial edema, calf tenderness Back: Absent: CVA tenderness (R), CVA tenderness (L), spinous process tenderness Neurological: Present: alert, oriented X3 Psychiatric: Present: normal affect, normal mood. Absent: anxious, homicidal ideation, suicidal ideation Skin: Present: warm, dry Course Vital Signs Temperature 97.2 F 01/06/19 00:08 Pulse Rate 114 H 01/06/19 00:08 Respiratory Rate 18 01/06/19 00:08 Blood Pressure 100/61 01/06/19 00:08 Pulse Oximetry (%) 95 01/06/19 00:08 Temperature 97.2 F 01/06/19 00:08 Pulse Rate 103 H 01/06/19 02:31 Respiratory Rate 18 01/06/19 00:08 Blood Pressure 109/99 01/06/19 03:01 Pulse Oximetry (%) 92 01/06/19 02:31 Abdominal Pain - MDM Narrative Medical decision making narrative: 1:18 AM With nausea and vomiting and abdominal pain, labs and plain x-ray. - Medical Records Medical records reviewed: Yes I reviewed the patient's medical records. - Lab Data Lab results reviewed: Yes I reviewed the patient's lab results. Result diagrams: 01/06/19 01:22 01/06/19 01:22 Lab Results 01/06/19 01/06/19 Range/Units 01:22 01:22 WBC 10.5 (4.5-11.0) K/mcL RBC 4.74 (4.00-5.20) M/mcL Hgb 12.4 (12.0-15.0) g/dL Hct 38.6 (36.0-48.0) % MCV 81.5 (80.0-100.0) fL MCH 26.1 (26.0-34.0) pg MCHC 32.0 (31.0-36.0) g/dL RDW 19.0 H (11.5-14.5) % Plt Count 598 H (140-440) K/mcL MPV 8.1 (7.4-10.4) fL Gran % 73.2 (38.0-78.0) % Lymph % (Auto) 15.4 L (15.5-49.0) % [place] % (Auto) 9.8 (1.0-12.0) % Eos % (Auto) 1.3 (0.0-7.0) % Baso % (Auto) 0.3 (0.0-2.0) % Gran # 7.7 (1.8-8.0) K/mcL Lymph # (Auto) 1.6 (1.5-4.8) K/mcL [place] # (Auto) 1.0 H (0.1-0.9) K/mcL Eos # (Auto) 0.1 (0.0-0.7) K/mcL Baso # (Auto) 0 (0.0-0.3) K/mcL Sodium 130 L (133-145) mmol/L Potassium 3.9 (3.3-5.1) mmol/L Chloride 83 L (96-108) mmol/L Carbon Dioxide 32 H (22-30) mmol/L Anion Gap 15.0 (8-16) BUN 31 H (6-20) mg/dl Creatinine 1.2 H (0.6-1.1) mg/dl GFR Calculation 50 Glucose 242 H (70-105) mg/dL Calcium 10.2 (8.6-10.4) mg/dl Total Bilirubin 0.4 (0.0-1.0) mg/dL AST 14 (0-37) U/l ALT 51 H (0-40) U/l Alkaline Phosphatase 112 (39-117) U/L C-Reactive Protein 16.8 H (0.0-0.8) mg/dl Total Protein 6.4 (5.9-8.4) gm/dL Albumin 3.0 L (3.2-5.2) gm/dL Globulin 3.4 (2.2-3.7) gm/dL Albumin/Globulin Ratio 0.9 L (1.0-2.3) Lipase 17 (7-60) U/L - Radiology Data Radiology results reviewed: Yes I reviewed the patient's radiology results. Disposition Pt seen by MITIGATION SUPERVISOR/PA only: No Clinical Impression: Small bowel obstruction, Hyponatremia, Dehydration, S/P ileostomy Abdominal pain Qualifiers: Abdominal location: generalized Qualified Code(s): R10.84 - Generalized abdominal pain Nausea & vomiting Qualifiers: Vomiting type: unspecified Vomiting Intractability: intractable Qualified Code(s): R11.2 - Nausea with vomiting, unspecified Summary: With x-ray demonstrating marked dilations of small bowel throughout most of the abdomen, i.e. multiple parts of the small bowel, and patient having significant major pain, nausea and vomiting, elevated creatinine to 1.2 where normal for her is less than 0.8, hyponatremia, etc., patient will be kept in the emergency room until bed availability where she will begin patient under the care of Dr. Parviz Currie, general surgeon, who is willing to accept charge for her care. Disposition: Xfer As Inpt ([facility]) Condition: Fair Referrals: Douglas Haque MD [Primary Care Provider] -
[2019-01-06] MEDS: HYDROmorphone 2 MG/ML VIAL IV PRN ×8 (01:30→23:55)
[2019-01-06 02:00] LABS: Basophils # (Auto) 0 K/mcL (0.0-0.3); Basophils % (Auto) 0.3 % (0.0-2.0); Eosinophils # (Auto) 0.1 K/mcL (0.0-0.7); Eosinophils % (Auto) 1.3 % (0.0-7.0); Granulocytes % (Auto) 73.2 % (38.0-78.0); Lymphocytes # (Auto) 1.6 K/mcL (1.5-4.8); Lymphocytes % (Auto) 15.4 % (15.5-49.0); Mean Cell Volume 81.5 fL (80.0-100.0); Monocytes % (Auto) 9.8 % (1.0-12.0); Platelet Count 598 K/mcL (140-440); RBC 4.74 M/mcL (4.00-5.20)
[2019-01-06 02:19] LABS: ALT/SGPT 51 U/l (0-40); Albumin/Globulin Ratio 0.9 (1.0-2.3); Alkaline Phosphatase 112 U/L (39-117); Blood Urea Nitrogen 31 mg/dl (6-20); C-Reactive Protein 16.8 mg/dl (0.0-0.8); Lipase 17 U/L (7-60)
[2019-01-06] MEDS ORDERED: PROMETHAZINE 25 MG/ML VIAL IM PRN (02:34)
[2019-01-06] MEDS ORDERED: NALOXONE HCL 0.4 MG/ML VIAL IV PRN (02:34)
[2019-01-06] MEDS ORDERED: 0.9 % SODIUM CHLORIDE 1,000 ML IV SCH (02:45)
[2019-01-06] MEDS: 0.9 % SODIUM CHLORIDE 1,000 ML IV SCH ×6 (05:36→22:10)
--- NOTE | 2019-01-06 05:51 | XRay Report ---
CLINICAL INFORMATION: Recurrent small bowel obstruction. Nasogastric tube placement TECHNIQUE: Supine abdomen COMPARISON: Multiple previous plain film examinations and CT scans. Most recent plain film examination is dated 01/06/2019 at 0133 FINDINGS: Interval placement of an esophagogastric tube. Tip is curled in the gastric fundus. There is dilated gas filled small bowel, unchanged. There are multiple skin kori from previous surgery IMPRESSION: Esophagogastric tube in the gastric fundus Interpreted and Authenticated by: All Cormier 01/06/19
--- NOTE | 2019-01-06 05:55 | XRay Report ---
CLINICAL INFORMATION: Abdominal pain. Recurrent small bowel obstruction TECHNIQUE: Supine and upright abdomen COMPARISON: Multiple previous plain film examinations and CT scans. Most recent studies are dated 01/02/2019, 01/01/2019, 12/28/2018 FINDINGS: There are skin kori in a vertical midline incision. There are skin kori in the left lower quadrant. Distended gas-filled small bowel and gaseous distention of the stomach are present. Findings are new since 01/02/2019. Findings are consistent with recurrent small bowel obstruction. No pneumoperitoneum. No biliary or portal venous gas. No pneumatosis. IMPRESSION: 1. Dilated gas-filled stomach and small bowel consistent with mechanical small bowel obstruction 2. Findings are new since 01/02/2019 Interpreted and Authenticated by: All Cormier 01/06/19
[2019-01-06] MEDS: ERYTHROMYCIN BASE 250 MG TABLET PO SCH ×3 (12:48→23:55)
[2019-01-06] MEDS: MAGNESIUM OXIDE 400 MG TABLET PO SCH ×2 (15:41→21:44)
[2019-01-06] MEDS: CALCITRIOL 0.25 MCG CAPSULE PO SCH ×2 (15:42→21:44)
[2019-01-06] MEDS: PYRIDOSTIGMINE 60 MG TABLET PO SCH ×2 (15:42→21:53)
--- NOTE | 2019-01-06 17:57 | General Surg History&Physical ---
History of Present Illness Patient information: Note initiated : 01/06/19 at 5:56 pm Service Date, if different from initiated Date: [] Patient: Dayanna Stephens a 58 y/o F admitted on 01/06/19 for Abd Pain. Chief Complaint: [] HPI: Ms. Stephens is a 58 year old F who is admitted through the emergency room for recurrent nausea and vomiting. The patient was recently hospitalized on 2:15 through 01/03/19 for similar problem. During that hospitalization she underwent total small bowel adhesion lysis and total colectomy with ileostomy. Over the next few days her stoma began functioning and she was having regular bowel movements. Her diet was advanced without difficulty and her nausea resolved. She was discharged home on December 30 with plans to follow-up in the office in 1 week. She states that one day after arriving home she developed increasing abdominal distention and had nausea with vomiting. She however admits that she was still having multiple bowel movements VIA her Ileostomy. abdominal x-rays shows massive dilation of her small bowel and stomach extending all the way to her ileostomy. This felt that this is a manifestation of her intestinal pseudoobstruction and she is admitted with a plan to restart her on Mestinon and erythromycin with anticipation that this will be effective enough to decompress her bowel and to improve her intestinal distention. Review of Systems - Constitutional anorexia, fatigue, headache(s), malaise, weakness, weight loss - EENT Nose, mouth and throat: dizziness, headache(s) - Cardiovascular rapid heart rate, no chest pain at rest, no dyspnea, no paroxysmal nocturnal dyspnea - Respiratory no cough, no dyspnea on exertion, no chest congestion - Gastrointestinal abdominal pain, bloating, excessive flatus, melena, vomiting - Genitourinary Genitourinary: no change in urinary stream, no dysuria, no nocturia - Musculoskeletal abnormal gait, back pain, joint swelling, myalgias, numbness, stiffness - Integumentary other (mild irritation around the ileostomy right lower quadrant; clear drainage from lower abdominal incision), no pruritus, no rash - Neurological weakness, no dizziness, no numbness, no syncope - Psychiatric anxiety, depression, irritability - Endocrine fatigue, no palpitations - Hematologic/Lymphatic no easy bleeding, no easy bruising, no lymphadenopathy - Allergic/Immunologic no tongue swelling, no throat swelling, no uticaria, no wheezing, no lip swelling Past History Past medical history: Myasthenia gravis Situational depression Chronic intestinal pseudoobstruction Past surgical history: Sigmoid colectomy with colostomy Exploratory laparotomy with adhesiolysis 3 Repair of parastomal hernia Incisional hernia repair Laparotomy with Parra tube plication Total colectomy with ileostomy Past family history: Coronary artery disease Stroke Alzheimer's dementia Past social history: Disabled Never smoker Medications and Allergies Home Medications Medication Instructions Recorded Confirmed Type predniSONE [Prednisone] 20 mg PO QAC #4 tab 05/18/16 01/06/19 Rx DULoxetine [Cymbalta] 30 mg PO BID 11/30/16 01/06/19 History Levothyroxine [Synthroid] 250 mcg PO QAMAC 08/20/17 01/06/19 History Polyethylene Glycol 3350 [Miralax] 17 gm PO BID 09/18/17 01/06/19 History calcitriol 0.25 mcg capsule 0.5 mcg PO TID cap 11/05/17 01/06/19 History Lisinopril [Zestril] 20 mg PO BID #60 tab 12/06/17 01/06/19 Rx Calcium Carbonate 1,250 mg PO BID #350 oral.susp 07/12/18 01/06/19 Rx Magnesium Oxide 400 mg PO TID #90 tab 07/12/18 01/06/19 Rx metFORMIN HCL [Metformin HCl] 500 mg PO DAILY #30 tab 10/17/18 01/06/19 Rx Mupirocin Oint 2% [Bactroban Oint 1 dose TOPICAL BID #0 tube 11/27/18 01/06/19 Rx 2%] oxyCODONE HCL [Roxicodone] 10 mg PO Q4HP PRN #60 tab 01/03/19 01/06/19 Rx Allergies Allergy/AdvReac Type Severity Reaction Status Date / Time Sulfa (Sulfonamide Allergy Severe Anaphylaxis Verified 01/06/19 05:39 Antibiotics) adhesive tape AdvReac Mild Blister Verified 01/06/19 05:39 metoclopramide [From Reglan] AdvReac Mild Anxiety Verified 01/06/19 05:39 steri strips Allergy Severe Blister Uncoded 11/03/18 09:30 Exam Temp Pulse Resp BP Pulse Ox 96.8 F L 96 H 18 92/61 90 01/06/19 16:00 01/06/19 16:00 01/06/19 16:00 01/06/19 16:00 01/06/19 16:00 - General physical appearance well developed, well nourished, no distress, moderate distress, moderate pain, obese - Eyes PERRL, normal ocular movement - ENT normal pinna, normal nares, normal mucosa, no hearing loss, no congestion - Head Head exam IM: Present: atraumatic, normal inspection, normocephalic - Neck no masses, no bruits, trachea midline, no lymphadenopathy, no venous distension - Cardiovascular Cardiovascular exam IM: Present: normal rate and rhythm, +S1, +S2, tachycardia. Absent: JVD - Respiratory normal expansion, normal respiratory effort, clear to auscultation - Abdomen Abdomen: Present: soft, non tender, bowel sounds, distended (distended with moderate tenderness ; hyperactive bowel sounds; incision healing; stoma functioning) Hernia: Present: none - Genitourinary Present: normal external genitalia - Integumentary Present: no rash, no growths, no abnormal pigmentation - Neurologic Present: normal coordination, normal sensation - Musculoskeletal Present: normal gait, normal posture - Psychiatric Present: oriented to time, oriented to person, oriented to place, speech is normal, memory intact Assessment and Plan (1) Chronic intestinal pseudo-obstruction Nasogastric decompression Add Mestinon and erythromycin IV hydration Status: Acute (2) Diabetes mellitus type 2, uncontrolled Status: Chronic (3) Hypertension Status: Chronic Qualifiers: Hypertension type: essential hypertension Qualified Code(s): I10 - Essential (primary) hypertension (4) Myasthenia gravis Status: Chronic (5) Polyglandular autoimmune syndrome Status: Chronic (6) Recurrent intestinal obstruction Status: Chronic Comment: many recurrences; many surgical interventions
[2019-01-06] MEDS ORDERED: BENZOCAINE 1 SPRAY BOTTLE TOPICAL PRN (18:22)
[2019-01-06] MEDS: DULoxetine 30 MG CAPSULE PO SCH (21:44)
[2019-01-06] MEDS: CALCIUM CARBONATE 1,250 MG/5 ML ORAL.SUSP PO SCH (21:44)
[2019-01-06] MEDS: oxyCODONE/APAP 5/325MG TABLET PO PRN (23:54)
[2019-01-07] MEDS: 0.9 % SODIUM CHLORIDE 1,000 ML IV SCH ×6 (02:22→18:34)
[2019-01-07] MEDS: HYDROmorphone 2 MG/ML VIAL IV PRN ×4 (03:23→13:31)
[2019-01-07] MEDS: ERYTHROMYCIN BASE 250 MG TABLET PO SCH ×4 (05:42→23:43)
[2019-01-07 06:36] LABS: Basophils # (Auto) 0 K/mcL (0.0-0.3); Basophils % (Auto) 0.6 % (0.0-2.0); Eosinophils # (Auto) 0.4 K/mcL (0.0-0.7); Eosinophils % (Auto) 5.4 % (0.0-7.0); Granulocytes % (Auto) 61.6 % (38.0-78.0); Lymphocytes # (Auto) 1.4 K/mcL (1.5-4.8); Lymphocytes % (Auto) 21.4 % (15.5-49.0); Mean Cell Volume 83.9 fL (80.0-100.0); Monocytes # (Auto) 0.7 K/mcL (0.1-0.9); Platelet Count 418 K/mcL (140-440); Red Cell Distribution Width 19.3 % (11.5-14.5)
--- NOTE | 2019-01-07 07:12 | XRay Report ---
CLINICAL INFORMATION: Recurrent small bowel obstruction TECHNIQUE: Supine and upright abdomen COMPARISON: Multiple previous plain film examinations and CT scans. Most recent previous plain film examination is dated 01/06/2019 FINDINGS: Esophagogastric tube is curled in the gastric fundus. Again demonstrated are surgical skin kori and a vertical midline lower abdominal and pelvic incision. There is been removal of the left pelvic skin kori. There is small bowel gas with mild ductal dilatation. Maximum jejunal diameter measures 5 cm. There is gas in the colon. Bowel gas pattern is significantly improved since previous examination. No pneumoperitoneum. No biliary or portal venous gas. No pneumatosis. IMPRESSION: Improved bowel gas pattern as above Interpreted and Authenticated by: All Cormier 01/07/19
[2019-01-07 07:17] LABS: ALT/SGPT 27 U/l (0-40); Albumin 2.2 gm/dL (3.2-5.2); Albumin/Globulin Ratio 0.8 (1.0-2.3); Alkaline Phosphatase 79 U/L (39-117); Bilirubin,Direct < 0.2 mg/dL (0.0-0.3); Blood Urea Nitrogen 23 mg/dl (6-20); Gamma Glutamyl Transpeptidase 37 U/L (5-36); Uric Acid 6.8 mg/dL (2.5-8.0)
[2019-01-07] MEDS: LEVOTHYROXINE 125 MCG TABLET PO SCH (07:52)
[2019-01-07] MEDS: DULoxetine 30 MG CAPSULE PO SCH ×2 (08:48→20:46)
[2019-01-07] MEDS: metFORMIN 500 MG TABLET PO SCH (08:48)
[2019-01-07] MEDS: predniSONE 20 MG TABLET PO SCH (08:48)
[2019-01-07] MEDS: CALCITRIOL 0.25 MCG CAPSULE PO SCH ×3 (08:48→20:47)
[2019-01-07] MEDS: MAGNESIUM OXIDE 400 MG TABLET PO SCH ×3 (08:48→20:47)
[2019-01-07] MEDS: PYRIDOSTIGMINE 60 MG TABLET PO SCH ×3 (08:49→20:46)
[2019-01-07] MEDS: CALCIUM CARBONATE 1,250 MG/5 ML ORAL.SUSP PO SCH ×2 (08:49→20:46)
[2019-01-07] MEDS: oxyCODONE/APAP 5/325MG TABLET PO PRN ×3 (11:07→20:47)
--- NOTE | 2019-01-07 15:16 | General Surgery Progress Note ---
Subjective Patient reports: feels better, pain is less, flatus, bowel movement, diarrhea, nausea, afebrile Narrative: Note initiated : 01/07/19 at 3:14 pm Service Date, if different from initiated Date: [] Patient: Dayanna Stephens 58 y/o F admitted on 01/06/19 for Abd Pain. Chief Complaint: [patient is stable she is afebrile. She has nausea which she attributes to IV Dilaudid so this will be discontinued. She is having good output of gas and stool through her stoma through nasogastric tube will be discontinued. White blood count 6.6, hemoglobin 9.6, BUN 23] Objective Temp Pulse Resp BP Pulse Ox 97.5 F 85 16 120/64 96 01/07/19 11:24 01/07/19 11:24 01/07/19 11:24 01/07/19 11:24 01/07/19 11:24 - Additional Data Intake & Output - Last 24 hours: Intake & Output 01/05/19 01/06/19 01/07/19 01/08/19 05:59 05:59 05:59 05:59 Intake Total 3073 1000 Output Total 1250 Balance 1823 1000 Weight 215 lb 5 oz 220 lb - General physical appearance well developed, well nourished, no distress - Eyes PERRL, normal ocular movement - ENT normal pinna, normal nares, normal mucosa, no hearing loss, no congestion - Neck no masses, no bruits, trachea midline, no lymphadenopathy, no venous distension - Respiratory normal expansion, normal respiratory effort, clear to auscultation - Cardiovascular Cardiovascular exam: Present: normal rate and rhythm, RRR, +S1, +S2. Absent: JVD, tachycardia - Abdomen tender (mild tenderness in the lower aspect of her incision; she has good active bowel sounds; there is small amount of drainage from her lower midline incision. Stoma is working appropriately.), bowel sounds (present), surgical scars (none), masses (none) - Integumentary no rash, no growths, no abnormal pigmentation - Neurologic normal coordination, normal sensation - Musculoskeletal normal gait, normal posture - Psychiatric oriented to time, oriented to person, oriented to place, speech is normal, memory intact - Labs 01/07/19 05:19 01/07/19 05:19 Diabetes panel 01/07/19 Range/Units 05:19 Sodium 135 (133-145) mmol/L Potassium 4.3 (3.3-5.1) mmol/L Chloride 97 (96-108) mmol/L Carbon Dioxide 29 (22-30) mmol/L BUN 23 H (6-20) mg/dl Creatinine 0.8 (0.6-1.1) mg/dl Glucose 126 H (70-105) mg/dL Calcium 7.8 L (8.6-10.4) mg/dl AST 12 (0-37) U/l ALT 27 (0-40) U/l Alkaline Phosphatase 79 (39-117) U/L Total Protein 5.0 L (5.9-8.4) gm/dL Albumin 2.2 L (3.2-5.2) gm/dL Triglycerides 289 H (<150) mg/dl Calcium panel 01/07/19 Range/Units 05:19 Calcium 7.8 L (8.6-10.4) mg/dl Phosphorus 2.9 (2.7-4.5) mg/dL Albumin 2.2 L (3.2-5.2) gm/dL Pituitary panel 01/07/19 Range/Units 05:19 Sodium 135 (133-145) mmol/L Potassium 4.3 (3.3-5.1) mmol/L Chloride 97 (96-108) mmol/L Carbon Dioxide 29 (22-30) mmol/L BUN 23 H (6-20) mg/dl Creatinine 0.8 (0.6-1.1) mg/dl Glucose 126 H (70-105) mg/dL Calcium 7.8 L (8.6-10.4) mg/dl Adrenal panel 01/07/19 Range/Units 05:19 Sodium 135 (133-145) mmol/L Potassium 4.3 (3.3-5.1) mmol/L Chloride 97 (96-108) mmol/L Carbon Dioxide 29 (22-30) mmol/L BUN 23 H (6-20) mg/dl Creatinine 0.8 (0.6-1.1) mg/dl Glucose 126 H (70-105) mg/dL Calcium 7.8 L (8.6-10.4) mg/dl Total Bilirubin 0.3 (0.0-1.0) mg/dL AST 12 (0-37) U/l ALT 27 (0-40) U/l Alkaline Phosphatase 79 (39-117) U/L Total Protein 5.0 L (5.9-8.4) gm/dL Albumin 2.2 L (3.2-5.2) gm/dL Assessment and Plan (1) Chronic intestinal pseudo-obstruction Status: Acute Assessment and plan: Discontinue Dilaudid Start fentanyl 50 g every 2 hours when necessary pain Flexeril 10 mg by mouth twice daily as needed for muscle contractions or spasms Check abdominal x-rays in the morning Discontinue nasogastric tube Current Visit: Yes - Time Spent With Patient Total time spent is greater than 50% in coordination of care (as documented) at patient's floor/unit and/or counseling patient:
[2019-01-07] MEDS ORDERED: CYCLOBENZAPRINE 10 MG TABLET PO PRN (15:19)
[2019-01-07] MEDS: fentaNYL 100 MCG/2 ML VIAL IV PRN ×3 (16:52→22:30)
[2019-01-08] MEDS: 0.9 % SODIUM CHLORIDE 1,000 ML IV SCH ×5 (01:02→20:10)
[2019-01-08] MEDS: fentaNYL 100 MCG/2 ML VIAL IV PRN ×7 (03:42→20:44)
[2019-01-08] MEDS: oxyCODONE/APAP 5/325MG TABLET PO PRN ×3 (05:28→23:22)
[2019-01-08] MEDS: ERYTHROMYCIN BASE 250 MG TABLET PO SCH ×4 (06:04→23:22)
[2019-01-08 07:09] LABS: Basophils # (Auto) 0 K/mcL (0.0-0.3); Basophils % (Auto) 0.4 % (0.0-2.0); Eosinophils # (Auto) 0.2 K/mcL (0.0-0.7); Eosinophils % (Auto) 4.4 % (0.0-7.0); Granulocytes % (Auto) 57.4 % (38.0-78.0); Lymphocytes # (Auto) 1.4 K/mcL (1.5-4.8); Lymphocytes % (Auto) 27.7 % (15.5-49.0); Mean Cell Volume 83.7 fL (80.0-100.0); Mean Corpuscular HGB Conc 31.6 g/dL (31.0-36.0); Monocytes # (Auto) 0.5 K/mcL (0.1-0.9); Monocytes % (Auto) 10.1 % (1.0-12.0); Platelet Count 412 K/mcL (140-440); RBC 3.23 M/mcL (4.00-5.20); Red Cell Distribution Width 18.5 % (11.5-14.5)
--- NOTE | 2019-01-08 07:14 | XRay Report ---
CLINICAL INFORMATION: Recurrent small bowel obstruction TECHNIQUE: Supine and upright abdomen COMPARISON: Multiple previous examinations. Most recent studies are dated 01/07/2019 and 01/06/2019 FINDINGS: Status post removal of nasogastric tube. Vertical incision skin kori remain present. Bowel gas pattern is markedly improved. No significantly dilated gas-filled small bowel remaining. No pneumoperitoneum. No biliary or portal venous gas. No pneumatosis. IMPRESSION: Resolution of gaseous small bowel distention and findings of mechanical small bowel obstruction Interpreted and Authenticated by: All Cormier 01/08/19
[2019-01-08] MEDS: LEVOTHYROXINE 125 MCG TABLET PO SCH (07:32)
[2019-01-08 07:51] LABS: ALT/SGPT 24 U/l (0-40); Albumin 2.3 gm/dL (3.2-5.2); Albumin/Globulin Ratio 0.9 (1.0-2.3); Alkaline Phosphatase 67 U/L (39-117); Bilirubin,Direct < 0.2 mg/dL (0.0-0.3); Blood Urea Nitrogen 10 mg/dl (6-20); Gamma Glutamyl Transpeptidase 29 U/L (5-36); Uric Acid 5.4 mg/dL (2.5-8.0)
[2019-01-08] MEDS: predniSONE 20 MG TABLET PO SCH (07:55)
[2019-01-08] MEDS: metFORMIN 500 MG TABLET PO SCH (07:55)
[2019-01-08] MEDS: MAGNESIUM OXIDE 400 MG TABLET PO SCH ×3 (09:10→20:46)
[2019-01-08] MEDS: DULoxetine 30 MG CAPSULE PO SCH ×2 (09:10→20:46)
[2019-01-08] MEDS: CALCIUM CARBONATE 1,250 MG/5 ML ORAL.SUSP PO SCH ×2 (09:10→20:47)
[2019-01-08] MEDS: PYRIDOSTIGMINE 60 MG TABLET PO SCH ×3 (09:10→20:46)
[2019-01-08] MEDS: CALCITRIOL 0.25 MCG CAPSULE PO SCH ×4 (09:11→20:45)
--- NOTE | 2019-01-08 18:19 | General Surgery Progress Note ---
Subjective Patient reports: feels better, pain is less, tolerating a regular diet, flatus, bowel movement, diarrhea, afebrile Narrative: Note initiated : 01/08/19 at 6:17 pm Service Date, if different from initiated Date: [] Patient: Dayanna Stephens 58 y/o F admitted on 01/06/19 for Abd Pain. Chief Complaint: [Patient continues to improve. She does have the best day since admission. She has good output through her stoma and her abdomen is nondistended. Abdominal x-ray shows minimal small bowel gas and decompressed stomach. White blood count 5.2, hemoglobin 8.5, BUN 10, creatinine 0.6, phosphorus 2.1, magnesium 1.5.] Objective Temp Pulse Resp BP Pulse Ox 97.5 F 87 14 148/72 96 01/08/19 16:00 01/08/19 16:00 01/08/19 16:00 01/08/19 16:00 01/08/19 16:00 - Additional Data Intake & Output - Last 24 hours: Intake & Output 01/06/19 01/07/19 01/08/19 01/09/19 05:59 05:59 05:59 05:59 Intake Total 3073 4050 2780 Output Total 1250 2950 3000 Balance 1823 1100 -220 Weight 215 lb 5 oz 220 lb 223 lb - General physical appearance well developed, well nourished, no distress - Eyes PERRL, normal ocular movement - ENT normal pinna, normal nares, normal mucosa, no hearing loss, no congestion - Neck no masses, no bruits, trachea midline, no lymphadenopathy, no venous distension - Respiratory normal expansion, normal respiratory effort, clear to auscultation - Cardiovascular Cardiovascular exam: Present: normal rate and rhythm, RRR, +S1, +S2. Absent: JVD, tachycardia - Abdomen tender (minimal abdominal tenderness; good active bowel sounds; small drainage in the lower part of the incision; stoma looks good) - Integumentary no rash, no growths, no abnormal pigmentation - Neurologic normal coordination, normal sensation - Musculoskeletal normal gait, normal posture - Psychiatric oriented to time, oriented to person, oriented to place, speech is normal, memory intact - Labs 01/08/19 04:53 01/08/19 04:53 Diabetes panel 01/08/19 Range/Units 04:53 Sodium 138 (133-145) mmol/L Potassium 4.1 (3.3-5.1) mmol/L Chloride 100 (96-108) mmol/L Carbon Dioxide 29 (22-30) mmol/L BUN 10 (6-20) mg/dl Creatinine 0.6 (0.6-1.1) mg/dl Glucose 99 (70-105) mg/dL Calcium 8.4 L (8.6-10.4) mg/dl AST 12 (0-37) U/l ALT 24 (0-40) U/l Alkaline Phosphatase 67 (39-117) U/L Total Protein 5.0 L (5.9-8.4) gm/dL Albumin 2.3 L (3.2-5.2) gm/dL Triglycerides 209 H (<150) mg/dl Calcium panel 01/08/19 Range/Units 04:53 Calcium 8.4 L (8.6-10.4) mg/dl Phosphorus 2.1 L (2.7-4.5) mg/dL Albumin 2.3 L (3.2-5.2) gm/dL Pituitary panel 01/08/19 Range/Units 04:53 Sodium 138 (133-145) mmol/L Potassium 4.1 (3.3-5.1) mmol/L Chloride 100 (96-108) mmol/L Carbon Dioxide 29 (22-30) mmol/L BUN 10 (6-20) mg/dl Creatinine 0.6 (0.6-1.1) mg/dl Glucose 99 (70-105) mg/dL Calcium 8.4 L (8.6-10.4) mg/dl Adrenal panel 01/08/19 Range/Units 04:53 Sodium 138 (133-145) mmol/L Potassium 4.1 (3.3-5.1) mmol/L Chloride 100 (96-108) mmol/L Carbon Dioxide 29 (22-30) mmol/L BUN 10 (6-20) mg/dl Creatinine 0.6 (0.6-1.1) mg/dl Glucose 99 (70-105) mg/dL Calcium 8.4 L (8.6-10.4) mg/dl Total Bilirubin 0.2 (0.0-1.0) mg/dL AST 12 (0-37) U/l ALT 24 (0-40) U/l Alkaline Phosphatase 67 (39-117) U/L Total Protein 5.0 L (5.9-8.4) gm/dL Albumin 2.3 L (3.2-5.2) gm/dL Assessment and Plan (1) Chronic intestinal pseudo-obstruction Status: Acute Assessment and plan: Discontinue Dilaudid Start fentanyl 50 g every 2 hours when necessary pain Flexeril 10 mg by mouth twice daily as needed for muscle contractions or spasms Check abdominal x-rays in the morning Decrease IV fluids Replace magnesium and phosphorus Current Visit: Yes - Time Spent With Patient Total time spent is greater than 50% in coordination of care (as documented) at patient's floor/unit and/or counseling patient:
[2019-01-08] MEDS ORDERED: POTASSIUM PHOSPHATE 40 MEQ in DEXTROSE 5% IN WATER 500 ML IV ONE (18:21)
[2019-01-08] MEDS ORDERED: MAGNESIUM SULFATE 32.48 MEQ in DEXTROSE 5% IN WATER 50 ML IV ONE (18:21)
[2019-01-08] MEDS ORDERED: MAGNESIUM SULFATE 2 GM/50 ML BAG IV ONE (19:20)
[2019-01-08] MEDS: MAGNESIUM SULFATE 2 GM/50 ML BAG IV SCH ×2 (19:31→20:48)
[2019-01-09] MEDS: fentaNYL 100 MCG/2 ML VIAL IV PRN ×8 (01:19→22:08)
[2019-01-09] MEDS: oxyCODONE/APAP 5/325MG TABLET PO PRN ×5 (03:17→21:20)
[2019-01-09] MEDS: ERYTHROMYCIN BASE 250 MG TABLET PO SCH ×3 (05:54→17:24)
[2019-01-09 05:56] LABS: Basophils # (Auto) 0 K/mcL (0.0-0.3); Basophils % (Auto) 0.4 % (0.0-2.0); Eosinophils # (Auto) 0.1 K/mcL (0.0-0.7); Eosinophils % (Auto) 2.3 % (0.0-7.0); Granulocytes % (Auto) 52.8 % (38.0-78.0); Lymphocytes # (Auto) 1.8 K/mcL (1.5-4.8); Lymphocytes % (Auto) 33.6 % (15.5-49.0); Mean Cell Volume 83.8 fL (80.0-100.0); Mean Corpuscular HGB Conc 31.2 g/dL (31.0-36.0); Monocytes # (Auto) 0.6 K/mcL (0.1-0.9); Monocytes % (Auto) 10.9 % (1.0-12.0); Platelet Count 439 K/mcL (140-440); RBC 3.46 M/mcL (4.00-5.20); Red Cell Distribution Width 18.5 % (11.5-14.5)
[2019-01-09 06:51] LABS: ALT/SGPT 24 U/l (0-40); Albumin 2.4 gm/dL (3.2-5.2); Albumin/Globulin Ratio 0.9 (1.0-2.3); Alkaline Phosphatase 70 U/L (39-117); Bilirubin,Direct < 0.2 mg/dL (0.0-0.3); Blood Urea Nitrogen 5 mg/dl (6-20); Gamma Glutamyl Transpeptidase 32 U/L (5-36); Uric Acid 5.1 mg/dL (2.5-8.0)
[2019-01-09] MEDS: predniSONE 20 MG TABLET PO SCH (07:56)
[2019-01-09] MEDS: LEVOTHYROXINE 125 MCG TABLET PO SCH (07:56)
[2019-01-09] MEDS: metFORMIN 500 MG TABLET PO SCH (07:56)
--- NOTE | 2019-01-09 08:20 | XRay Report ---
CLINICAL INFORMATION: Recurrent small bowel obstruction TECHNIQUE: Supine and upright abdomen COMPARISON: Previous examinations dated 01/08/2019, 01/07/2019, 01/06/2019 FINDINGS: Bowel gas pattern is unremarkable. No dilated gas-filled small bowel. There is a small amount of colonic gas. Appearance is significantly improved since 01/06/2019. No pneumoperitoneum. No biliary or portal venous gas. No pneumatosis. IMPRESSION: 1. Significant interval improvement 2. Bowel gas pattern is unremarkable. Interpreted and Authenticated by: All Cormier 01/09/19
[2019-01-09] MEDS: MAGNESIUM OXIDE 400 MG TABLET PO SCH ×3 (10:37→21:13)
[2019-01-09] MEDS: DULoxetine 30 MG CAPSULE PO SCH ×2 (10:37→21:12)
[2019-01-09] MEDS: CALCITRIOL 0.25 MCG CAPSULE PO SCH ×3 (10:37→21:12)
[2019-01-09] MEDS: CALCIUM CARBONATE 1,250 MG/5 ML ORAL.SUSP PO SCH ×2 (11:48→21:14)
[2019-01-09] MEDS: PYRIDOSTIGMINE 60 MG TABLET PO SCH ×3 (11:48→21:13)
--- NOTE | 2019-01-09 12:28 | General Surgery Progress Note ---
Subjective Patient reports: feels better, pain is less, tolerating a regular diet, flatus, bowel movement, diarrhea, nausea, afebrile Narrative: Note initiated : 01/09/19 at 12:26 pm Service Date, if different from initiated Date: [] Patient: Dayanna Stephens 58 y/o F admitted on 01/06/19 for Abd Pain. Chief Complaint: [patient continues to show good improvement. Her stoma is functioning well. She is tolerating regular diet without difficulty. Abdominal x-ray shows no dilated small bowel or stomach. White blood count 5.3 hemoglobin 9 potassium 4.6 BUN 5 creatinine 0.7.] Objective Temp Pulse Resp BP Pulse Ox 97 F 81 18 147/87 94 01/09/19 11:55 01/09/19 04:00 01/09/19 11:55 01/09/19 11:55 01/09/19 11:55 - Additional Data Intake & Output - Last 24 hours: Intake & Output 01/07/19 01/08/19 01/09/19 01/10/19 05:59 05:59 05:59 05:59 Intake Total 3073 4050 3480 Output Total 1250 2950 5400 Balance 1823 1100 -1920 Weight 220 lb 223 lb 224 lb 224 lb - General physical appearance well developed, well nourished, no distress - Eyes PERRL, normal ocular movement - ENT normal pinna, normal nares, normal mucosa, no hearing loss, no congestion - Neck no masses, no bruits, trachea midline, no lymphadenopathy, no venous distension - Respiratory normal expansion, normal respiratory effort, clear to auscultation - Cardiovascular Cardiovascular exam: Present: normal rate and rhythm, RRR, +S1, +S2. Absent: JVD, tachycardia - Abdomen non tender, bowel sounds (patient has good active bowel sounds), surgical scars ( stoma in right lower quadrant functions appropriately), masses (none) - Integumentary no rash, no growths, no abnormal pigmentation - Neurologic normal coordination, normal sensation - Musculoskeletal normal gait ( who presents), normal posture - Psychiatric oriented to time, oriented to person, oriented to place, speech is normal, memory intact - Labs 01/09/19 04:26 01/09/19 04:26 Diabetes panel 01/09/19 Range/Units 04:26 Sodium 138 (133-145) mmol/L Potassium 4.6 (3.3-5.1) mmol/L Chloride 98 (96-108) mmol/L Carbon Dioxide 30 (22-30) mmol/L BUN 5 L (6-20) mg/dl Creatinine 0.7 (0.6-1.1) mg/dl Glucose 117 H (70-105) mg/dL Calcium 8.9 (8.6-10.4) mg/dl AST 16 (0-37) U/l ALT 24 (0-40) U/l Alkaline Phosphatase 70 (39-117) U/L Total Protein 5.1 L (5.9-8.4) gm/dL Albumin 2.4 L (3.2-5.2) gm/dL Triglycerides 216 H (<150) mg/dl Calcium panel 01/09/19 Range/Units 04:26 Calcium 8.9 (8.6-10.4) mg/dl Phosphorus 3.9 (2.7-4.5) mg/dL Albumin 2.4 L (3.2-5.2) gm/dL Pituitary panel 01/09/19 Range/Units 04:26 Sodium 138 (133-145) mmol/L Potassium 4.6 (3.3-5.1) mmol/L Chloride 98 (96-108) mmol/L Carbon Dioxide 30 (22-30) mmol/L BUN 5 L (6-20) mg/dl Creatinine 0.7 (0.6-1.1) mg/dl Glucose 117 H (70-105) mg/dL Calcium 8.9 (8.6-10.4) mg/dl Adrenal panel 01/09/19 Range/Units 04:26 Sodium 138 (133-145) mmol/L Potassium 4.6 (3.3-5.1) mmol/L Chloride 98 (96-108) mmol/L Carbon Dioxide 30 (22-30) mmol/L BUN 5 L (6-20) mg/dl Creatinine 0.7 (0.6-1.1) mg/dl Glucose 117 H (70-105) mg/dL Calcium 8.9 (8.6-10.4) mg/dl Total Bilirubin 0.2 (0.0-1.0) mg/dL AST 16 (0-37) U/l ALT 24 (0-40) U/l Alkaline Phosphatase 70 (39-117) U/L Total Protein 5.1 L (5.9-8.4) gm/dL Albumin 2.4 L (3.2-5.2) gm/dL Assessment and Plan (1) Chronic intestinal pseudo-obstruction Status: Acute Assessment and plan: fentanyl 50 g every 2 hours when necessary pain Flexeril 10 mg by mouth twice daily as needed for muscle contractions or spasms Probable transfer to [facility] facility on Saturday Current Visit: Yes - Time Spent With Patient Total time spent is greater than 50% in coordination of care (as documented) at patient's floor/unit and/or counseling patient:
[2019-01-09] MEDS: 0.9 % SODIUM CHLORIDE 1,000 ML IV SCH (12:38)
[2019-01-09] MEDS ORDERED: PROMETHAZINE 25 MG/ML VIAL IV PRN ×2 (16:23→16:25)
[2019-01-10] MEDS: ERYTHROMYCIN BASE 250 MG TABLET PO SCH ×4 (00:45→17:42)
[2019-01-10] MEDS: fentaNYL 100 MCG/2 ML VIAL IV PRN ×6 (01:14→17:42)
[2019-01-10] MEDS: oxyCODONE/APAP 5/325MG TABLET PO PRN ×4 (04:12→20:23)
[2019-01-10] MEDS: CALCITRIOL 0.25 MCG CAPSULE PO SCH ×3 (07:49→20:22)
[2019-01-10] MEDS: metFORMIN 500 MG TABLET PO SCH (07:49)
[2019-01-10] MEDS: LEVOTHYROXINE 125 MCG TABLET PO SCH (07:49)
[2019-01-10] MEDS: predniSONE 20 MG TABLET PO SCH (07:49)
[2019-01-10] MEDS: MAGNESIUM OXIDE 400 MG TABLET PO SCH ×3 (07:49→20:22)
[2019-01-10] MEDS: CALCIUM CARBONATE 1,250 MG/5 ML ORAL.SUSP PO SCH ×2 (07:49→20:23)
[2019-01-10] MEDS: DULoxetine 30 MG CAPSULE PO SCH ×2 (07:49→20:23)
[2019-01-10] MEDS: PYRIDOSTIGMINE 60 MG TABLET PO SCH ×3 (07:49→20:23)
[2019-01-10] MEDS: 0.9 % SODIUM CHLORIDE 1,000 ML IV SCH (09:25)
--- NOTE | 2019-01-10 14:10 | General Surgery Progress Note ---
Subjective Patient reports: feels better, pain is less, tolerating a regular diet, flatus, bowel movement, diarrhea, afebrile Narrative: Note initiated : 01/10/19 at 2:08 pm Service Date, if different from initiated Date: [] Patient: Dayanna Stephens 58 y/o F admitted on 01/06/19 for Abd Pain. Chief Complaint: [patient continues to do well. She is in much better frame of mind. Her pain is controlled. She denies nausea. She is having regular bowel movements. Her episodes of leaking are significantly decreased around her stoma. She still has a small amount of drainage from her midline incision.] Objective Temp Pulse Resp BP Pulse Ox 97.6 F 84 18 157/96 94 01/10/19 11:56 01/10/19 04:16 01/10/19 11:56 01/10/19 11:56 01/10/19 11:56 - Additional Data Intake & Output - Last 24 hours: Intake & Output 01/08/19 01/09/19 01/10/19 01/11/19 05:59 05:59 05:59 05:59 Intake Total 4050 3930 2150 2040 Output Total 2950 5400 4700 850 Balance 1100 -1470 -2550 1190 Weight 223 lb 224 lb 224 lb 8 oz - General physical appearance well developed, well nourished, no distress - Eyes PERRL, normal ocular movement - ENT normal pinna, normal nares, normal mucosa, no hearing loss, no congestion - Neck no masses, no bruits, trachea midline, no lymphadenopathy, no venous distension - Respiratory normal expansion, normal respiratory effort, clear to auscultation - Cardiovascular Cardiovascular exam: Present: normal rate and rhythm, RRR, +S1, +S2. Absent: JVD, tachycardia - Abdomen tender (mild tenderness of the lower abdominal incision otherwise totally benign abdominal exam; stoma in the right lower quadrant), bowel sounds (present), surgical scars (none), masses (none) - Integumentary no rash, no growths, no abnormal pigmentation - Neurologic normal coordination, normal sensation - Musculoskeletal normal gait, normal posture - Psychiatric oriented to time, oriented to person, oriented to place, speech is normal, memory intact - Labs 01/09/19 04:26 01/09/19 04:26 Assessment and Plan (1) Chronic intestinal pseudo-obstruction Status: Acute Assessment and plan: fentanyl 50 g every 2 hours when necessary pain Flexeril 10 mg by mouth twice daily as needed for muscle contractions or spasms Probable transfer to shelter facility on Saturday Current Visit: Yes - Time Spent With Patient Total time spent is greater than 50% in coordination of care (as documented) at patient's floor/unit and/or counseling patient:
[2019-01-11] MEDS: ERYTHROMYCIN BASE 250 MG TABLET PO SCH ×4 (00:05→17:11)
[2019-01-11] MEDS: oxyCODONE/APAP 5/325MG TABLET PO PRN ×5 (00:23→17:11)
[2019-01-11] MEDS: fentaNYL 100 MCG/2 ML VIAL IV PRN (02:53)
[2019-01-11] MEDS: 0.9 % SODIUM CHLORIDE 1,000 ML IV SCH (05:17)
[2019-01-11] MEDS: CALCIUM CARBONATE 1,250 MG/5 ML ORAL.SUSP PO SCH ×2 (08:14→20:39)
[2019-01-11] MEDS: predniSONE 20 MG TABLET PO SCH (08:15)
[2019-01-11] MEDS: MAGNESIUM OXIDE 400 MG TABLET PO SCH ×3 (08:15→20:38)
[2019-01-11] MEDS: PYRIDOSTIGMINE 60 MG TABLET PO SCH ×3 (08:15→20:38)
[2019-01-11] MEDS: metFORMIN 500 MG TABLET PO SCH (08:15)
[2019-01-11] MEDS: DULoxetine 30 MG CAPSULE PO SCH ×2 (08:16→20:38)
[2019-01-11] MEDS: LEVOTHYROXINE 125 MCG TABLET PO SCH (08:16)
[2019-01-11] MEDS: CALCITRIOL 0.25 MCG CAPSULE PO SCH ×3 (08:16→20:38)
--- NOTE | 2019-01-11 13:16 | General Surgery Progress Note ---
Subjective Patient reports: feels better, pain is less, tolerating a regular diet, flatus, bowel movement, diarrhea, afebrile Narrative: Note initiated : 01/11/19 at 1:14 pm Service Date, if different from initiated Date: [] Patient: Dayanna Stephens 58 y/o F admitted on 01/06/19 for Abd Pain. Chief Complaint: [] Patient continues to improve. She has no abdominal discomfort. She denies nausea and is tolerating a regular diet. Her stoma is functioning nicely. Plan is for transfer to rehabilitation tomorrow. Objective Temp Pulse Resp BP Pulse Ox 98.6 F 97 H 18 126/68 90 01/11/19 11:28 01/11/19 11:28 01/11/19 11:28 01/11/19 11:28 01/11/19 11:28 - Additional Data Intake & Output - Last 24 hours: Intake & Output 01/09/19 01/10/19 01/11/19 01/12/19 05:59 05:59 05:59 05:59 Intake Total 3930 2150 3283 800 Output Total 5400 4700 3670 1675 Balance -1470 -2550 -387 -875 Weight 224 lb 224 lb 8 oz 220 lb - General physical appearance well developed, well nourished, no distress - Eyes PERRL, normal ocular movement - ENT normal pinna, normal nares, normal mucosa, no hearing loss, no congestion - Neck no masses, no bruits, trachea midline, no lymphadenopathy, no venous distension - Respiratory normal expansion, normal respiratory effort, clear to auscultation - Cardiovascular Cardiovascular exam: Present: normal rate and rhythm, RRR, +S1, +S2. Absent: JVD, tachycardia - Abdomen non tender, bowel sounds (present), surgical scars (none), masses (none), distended (no distention noted) - Integumentary no rash, no growths, no abnormal pigmentation - Neurologic normal coordination, normal sensation - Musculoskeletal normal gait, normal posture - Psychiatric oriented to time, oriented to person, oriented to place, speech is normal, memory intact - Labs 01/09/19 04:26 01/09/19 04:26 Assessment and Plan (1) Chronic intestinal pseudo-obstruction Status: Acute Assessment and plan: fentanyl 50 g every 2 hours when necessary pain Flexeril 10 mg by mouth twice daily as needed for muscle contractions or spasms Probable transfer to nursing home facility on Saturday Current Visit: Yes (2) Diabetes mellitus type 2, uncontrolled Status: Chronic Current Visit: No (3) Hypertension Status: Chronic Current Visit: No (4) Myasthenia gravis Status: Chronic Current Visit: No (5) Polyglandular autoimmune syndrome Status: Chronic Current Visit: No (6) Recurrent intestinal obstruction Problem details: many recurrences; many surgical interventions Status: Chronic Current Visit: No - Time Spent With Patient Total time spent is greater than 50% in coordination of care (as documented) at patient's floor/unit and/or counseling patient:
[2019-01-12] MEDS: oxyCODONE/APAP 5/325MG TABLET PO PRN ×4 (00:19→12:08)
[2019-01-12] MEDS: ERYTHROMYCIN BASE 250 MG TABLET PO SCH ×3 (00:20→12:08)
[2019-01-12] MEDS: 0.9 % SODIUM CHLORIDE 1,000 ML IV SCH ×2 (00:21→02:29)
[2019-01-12 06:08] LABS: Basophils # (Auto) 0 K/mcL (0.0-0.3); Basophils % (Auto) 0.6 % (0.0-2.0); Eosinophils # (Auto) 0.2 K/mcL (0.0-0.7); Eosinophils % (Auto) 3.9 % (0.0-7.0); Granulocytes % (Auto) 48.3 % (38.0-78.0); Lymphocytes % (Auto) 35.9 % (15.5-49.0); Mean Cell Volume 84.2 fL (80.0-100.0); Mean Corpuscular HGB Conc 31.3 g/dL (31.0-36.0); Monocytes # (Auto) 0.6 K/mcL (0.1-0.9); Monocytes % (Auto) 11.3 % (1.0-12.0); Platelet Count 379 K/mcL (140-440); Red Cell Distribution Width 19.1 % (11.5-14.5)
[2019-01-12 06:09] LABS: ALT/SGPT 35 U/l (0-40); Albumin 2.5 gm/dL (3.2-5.2); Alkaline Phosphatase 68 U/L (39-117); Bilirubin,Direct < 0.2 mg/dL (0.0-0.3); Blood Urea Nitrogen 9 mg/dl (6-20); Gamma Glutamyl Transpeptidase 31 U/L (5-36); Uric Acid 4.6 mg/dL (2.5-8.0)
[2019-01-12] MEDS: CALCIUM CARBONATE 1,250 MG/5 ML ORAL.SUSP PO SCH (08:07)
[2019-01-12] MEDS: MAGNESIUM OXIDE 400 MG TABLET PO SCH (08:07)
[2019-01-12] MEDS: predniSONE 20 MG TABLET PO SCH (08:07)
[2019-01-12] MEDS: LEVOTHYROXINE 125 MCG TABLET PO SCH (08:07)
[2019-01-12] MEDS: PYRIDOSTIGMINE 60 MG TABLET PO SCH (08:07)
[2019-01-12] MEDS: CALCITRIOL 0.25 MCG CAPSULE PO SCH (08:07)
[2019-01-12] MEDS: metFORMIN 500 MG TABLET PO SCH (08:07)
[2019-01-12] MEDS: DULoxetine 30 MG CAPSULE PO SCH (08:07)
--- NOTE | 2019-01-12 09:32 | Discharge Summary ---
Providers - Providers Patient information: Note initiated : 01/12/19 at 9:28 am Service Date, if different from initiated Date: [] Patient: Dayanna Stephens 58 y/o F admitted on 01/06/19 for Abd Pain. Chief Complaint: [] Date of admission: 01/06/19 Discharge date: 01/12/19 Attending physician: Bertha Currie Hospitalization Hospital course: 58-year-old female admitted through the emergency room for recurrent nausea and vomiting. She was previously hospitalized November 28 through January 03 for similar problems. She had total small bowel adhesiolysis and total colectomy with ileostomy. She was discharged home on 03 January, but one day after arriving home, she developed abdominal distention with nausea and vomiting. X-rays revealed massive dilation of her stomach and small bowel extending all the way to her ileostomy. This was a manifestation of her intestinal pseudoobstruction. She was also dehydrated. She was admitted, hydrated, started on Mestinon and erythromycin orally. This promptly produce peristalsis and she emptied her small bowel without need for any other intervention. She is doing well at this time. She is tolerating regular diet. Her ostomy is functioning normally. Her abdominal exam is benign and x-rays revealed no dilation of stomach or small bowel. She is significantly weak and because of her protracted problem with GI disturbance. She is stable and is discharged to go to [facility] facility for [facility] prior to bEING discharged home. Discharge diagnosis: chronic intestinal pseudoobstruction Secondary discharge diagnosis: Dehydration. Diabetes mellitus type 2. Hypertension. Myasthenia gravis. Polyglandular autoimmune syndrome Reason for admission: abdominal pain, nausea and vomiting Procedures: None Pertinent studies/significant findings: CT of abdomen and pelvis with contrast Complications: None Exam Temp Pulse Resp BP Pulse Ox 97.2 F 70 18 165/79 92 01/12/19 07:01 01/12/19 03:31 01/12/19 07:01 01/12/19 07:01 01/12/19 07:01 - General physical appearance well developed, well nourished, no distress - Eyes PERRL, normal ocular movement - ENT normal pinna, normal nares, normal mucosa, no hearing loss, no congestion - Head Head exam IM: Present: atraumatic, normocephalic - Neck no masses, no bruits, trachea midline, no lymphadenopathy, no venous distension - Cardiovascular Cardiovascular exam IM: Present: normal rate and rhythm - Respiratory normal expansion, normal respiratory effort, clear to auscultation - Abdomen Abdomen: Present: soft, non tender, bowel sounds, surgical scars (mild drainage from the lower aspect of her midline incision; healing. Stoma right lower quadrant; no abdominal distress the anterior) Hernia: Present: none - Genitourinary Present: normal external genitalia - Integumentary Present: no rash, no growths, no abnormal pigmentation - Neurologic Present: normal coordination, normal sensation - Musculoskeletal Present: normal gait, normal posture - Psychiatric Present: oriented to time, oriented to person, oriented to place, speech is normal, memory intact Discharge Plan - Patient/Caregiver Discharge Instructions Activity: as per physical therapy, increase activity as tolerated, resume usual activities as tolerated Diet: Regular Diet Additional Instructions: Change the dressing on lower abdominal incision as needed Prescriptions: oxyCODONE HCL [Roxicodone] 10 mg PO Q4HP PRN #60 tab PRN Reason: Pain Level 3-6 oxyCODONE/APAP [Percocet 5-325 mg] 2 tab PO Q4HP PRN #30 tablet PRN Reason: Pain Level 3-6 - Follow up Plan Follow up with: Douglas Haque MD [Primary Care Provider] - Disposition: Xfer SNF Prognosis: Good Rehab Potential: Good I certify that the patient requires SNF services.: Yes Overall status at discharge: patient is progressing back to baseline Pending Studies Resuscitation Status Full Code Diet Regular Diet Start SatJan 08 050 Benzocaine (Cetacaine) 1 spray TOPICAL 3-4XD PRN PRN Reason: Pain Stop: 01/12/19 18:21 Last Admin: 01/07/19 00:13 Dose: 1 spray Documented by: DMITRIY Calcitriol (Rocaltrol) 0.5 mcg PO TID [facility] Last Admin: 01/12/19 08:07 Dose: 0.5 mcg Documented by: Admin: 01/11/19 20:38 Dose: 0.5 mcg Documented by: Admin: 01/11/19 14:52 Dose: 0.5 mcg Documented by: Admin: 01/11/19 08:16 Dose: 0.5 mcg Documented by: Admin: 01/10/19 20:22 Dose: 0.5 mcg Documented by: Admin: 01/10/19 15:27 Dose: 0.5 mcg Documented by: Admin: 01/10/19 07:49 Dose: 0.5 mcg Documented by: Admin: 01/09/19 21:12 Dose: 0.5 mcg Documented by: Admin: 01/09/19 15:08 Dose: 0.5 mcg Documented by: Admin: 01/09/19 10:37 Dose: 0.5 mcg Documented by: Admin: 01/08/19 20:45 Dose: 0.5 mcg Documented by: Admin: 01/08/19 15:30 Dose: 0.5 mcg Documented by: Admin: 01/08/19 10:33 Dose: 0.5 mcg Documented by: Admin: 01/08/19 09:11 Dose: Not Given Documented by: [facility] Admin: 01/07/19 20:47 Dose: 0.5 mcg Documented by: Admin: 01/07/19 15:33 Dose: 0.5 mcg Documented by: Admin: 01/07/19 08:48 Dose: 0.5 mcg Documented by: Admin: 01/06/19 21:44 Dose: 0.5 mcg Documented by: Admin: 01/06/19 15:42 Dose: 0.5 mcg Documented by: AURORA Calcium Carbonate/Glycine (Calcium Carbonate) 1,250 mg PO BID [facility] Admin: 01/12/19 08:07 Dose: 1,250 mg Documented by: Admin: 01/11/19 20:39 Dose: 1,250 mg Documented by: Admin: 01/11/19 08:14 Dose: 1,250 mg Documented by: Admin: 01/10/19 20:23 Dose: 1,250 mg Documented by: Admin: 01/10/19 07:49 Dose: 1,250 mg Documented by: Admin: 01/09/19 21:14 Dose: 1,250 mg Documented by: Admin: 01/09/19 11:48 Dose: 1,250 mg Documented by: Admin: 01/08/19 20:47 Dose: 1,250 mg Documented by: Admin: 01/08/19 09:10 Dose: 1,250 mg Documented by: Admin: 01/07/19 20:46 Dose: 1,250 mg Documented by: Admin: 01/07/19 08:49 Dose: 1,250 mg Documented by: Admin: 01/06/19 21:44 Dose: 1,250 mg Documented by: DMITRIY Duloxetine HCl (Cymbalta) 30 mg PO BID [facility] Last Admin: 01/12/19 08:07 Dose: 30 mg Documented by: Admin: 01/11/19 20:38 Dose: 30 mg Documented by: Admin: 01/11/19 08:16 Dose: 30 mg Documented by: Admin: 01/10/19 20:23 Dose: 30 mg Documented by: Admin: 01/10/19 07:49 Dose: 30 mg Documented by: Admin: 01/09/19 21:12 Dose: 30 mg Documented by: Admin: 01/09/19 10:37 Dose: 30 mg Documented by: Admin: 01/08/19 20:46 Dose: 30 mg Documented by: Admin: 01/08/19 09:10 Dose: 30 mg Documented by: Admin: 01/07/19 20:46 Dose: 30 mg Documented by: Admin: 01/07/19 08:48 Dose: 30 mg Documented by: [facility] Admin: 01/06/19 21:44 Dose: 30 mg Documented by: DMITRIY Erythromycin (Erythromycin) 500 mg PO Q6 [facility]; Protocol Last Admin: 01/12/19 05:47 Dose: 500 mg Documented by: Admin: 01/12/19 00:20 Dose: 500 mg Documented by: Admin: 01/11/19 17:11 Dose: 500 mg Documented by: Admin: 01/11/19 11:27 Dose: 500 mg Documented by: Admin: 01/11/19 05:18 Dose: 500 mg Documented by: Admin: 01/11/19 00:05 Dose: 500 mg Documented by: Admin: 01/10/19 17:42 Dose: 500 mg Documented by: Admin: 01/10/19 11:39 Dose: 500 mg Documented by: Admin: 01/10/19 05:30 Dose: 500 mg Documented by: Admin: 01/10/19 00:45 Dose: 500 mg Documented by: Admin: 01/09/19 17:24 Dose: 500 mg Documented by: Admin: 01/09/19 11:48 Dose: 500 mg Documented by: Admin: 01/09/19 05:54 Dose: 500 mg Documented by: Admin: 01/08/19 23:22 Dose: 500 mg Documented by: Admin: 01/08/19 17:49 Dose: 500 mg Documented by: Admin: 01/08/19 11:59 Dose: 500 mg Documented by: Admin: 01/08/19 06:04 Dose: 500 mg Documented by: Admin: 01/07/19 23:43 Dose: 500 mg Documented by: Admin: 01/07/19 17:54 Dose: 500 mg Documented by: Admin: 01/07/19 12:05 Dose: 500 mg Documented by: Admin: 01/07/19 05:42 Dose: 500 mg Documented by: Admin: 01/06/19 23:55 Dose: 500 mg Documented by: Admin: 01/06/19 17:21 Dose: 500 mg Documented by: Admin: 01/06/19 12:48 Dose: 500 mg Documented by: AURORA Fentanyl (Sublimaze) 50 mcg IV Q2HP PRN PRN Reason: PAIN LEVEL > 6 Last Admin: 01/11/19 02:53 Dose: 50 mcg Documented by: Admin: 01/10/19 17:42 Dose: 50 mcg Documented by: Admin: 01/10/19 14:47 Dose: 50 mcg Documented by: [email or web address] Admin: 01/10/19 10:25 Dose: 50 mcg Documented by: Admin: 01/10/19 07:54 Dose: 50 mcg Documented by: Admin: 01/10/19 05:26 Dose: 50 mcg Documented by: Admin: 01/10/19 01:14 Dose: 50 mcg Documented by: Admin: 01/09/19 22:08 Dose: 50 mcg Documented by: Admin: 01/09/19 19:25 Dose: 50 mcg Documented by: Admin: 01/09/19 16:05 Dose: 50 mcg Documented by: [email or web address] Admin: 01/09/19 13:28 Dose: 50 mcg Documented by: Admin: 01/09/19 10:38 Dose: 50 mcg Documented by: Admin: 01/09/19 07:56 Dose: 50 mcg Documented by: Admin: 01/09/19 05:10 Dose: 50 mcg Documented by: Admin: 01/09/19 01:19 Dose: 50 mcg Documented by: Admin: 01/08/19 20:44 Dose: 50 mcg Documented by: Admin: 01/08/19 17:10 Dose: 50 mcg Documented by: Admin: 01/08/19 14:24 Dose: 50 mcg Documented by: Admin: 01/08/19 10:33 Dose: 50 mcg Documented by: Admin: 01/08/19 07:55 Dose: 50 mcg Documented by: Admin: 01/08/19 06:05 Dose: 50 mcg Documented by: [email or web address] Admin: 01/08/19 03:42 Dose: 50 mcg Documented by: [email or web address] Admin: 01/07/19 22:30 Dose: 50 mcg Documented by: [email or web address] Admin: 01/07/19 19:06 Dose: 50 mcg Documented by: [email or web address] Admin: 01/07/19 16:52 Dose: 50 mcg Documented by: LASHAF Sodium Chloride (Sodium Chloride 0.9%) 1,000 mls @ 50 mls/hr IV .Q20H [facility] Admin: 01/12/19 02:29 Dose: Not Given Documented by: Admin: 01/12/19 00:21 Dose: 50 mls/hr Documented by: Infusion: 01/12/19 00:21 Dose: 50 mls/hr Documented by: Admin: 01/11/19 05:17 Dose: 50 mls/hr Documented by: Infusion: 01/11/19 05:17 Dose: 50 mls/hr Documented by: Admin: 01/10/19 09:25 Dose: 50 mls/hr Documented by: Infusion: 01/10/19 08:38 Dose: 50 mls/hr Documented by: Admin: 01/09/19 12:38 Dose: 50 mls/hr Documented by: Infusion: 01/09/19 04:14 Dose: 0 mls/hr Documented by: Admin: 01/08/19 19:14 Dose: 50 mls/hr Documented by: DIANE Levothyroxine Sodium (Synthroid) 250 mcg PO QAMAC [facility] Admin: 01/12/19 08:07 Dose: 250 mcg Documented by: Admin: 01/11/19 08:16 Dose: 250 mcg Documented by: Admin: 01/10/19 07:49 Dose: 250 mcg Documented by: Admin: 01/09/19 07:56 Dose: 250 mcg Documented by: Admin: 01/08/19 07:32 Dose: 250 mcg Documented by: Admin: 01/07/19 07:52 Dose: 250 mcg Documented by: KEN Magnesium Oxide (Magnesium Oxide) 400 mg PO TID [facility] Admin: 01/12/19 08:07 Dose: 400 mg Documented by: Admin: 01/11/19 20:38 Dose: 400 mg Documented by: Admin: 01/11/19 14:52 Dose: 400 mg Documented by: Admin: 01/11/19 08:15 Dose: 400 mg Documented by: Admin: 01/10/19 20:22 Dose: 400 mg Documented by: Admin: 01/10/19 15:27 Dose: 400 mg Documented by: Admin: 01/10/19 07:49 Dose: 400 mg Documented by: Admin: 01/09/19 21:13 Dose: 400 mg Documented by: Admin: 01/09/19 15:08 Dose: 400 mg Documented by: Admin: 01/09/19 10:37 Dose: 400 mg Documented by: Admin: 01/08/19 20:46 Dose: 400 mg Documented by: Admin: 01/08/19 15:30 Dose: 400 mg Documented by: Admin: 01/08/19 09:10 Dose: 400 mg Documented by: Admin: 01/07/19 20:47 Dose: 400 mg Documented by: Admin: 01/07/19 15:33 Dose: 400 mg Documented by: Admin: 01/07/19 08:48 Dose: 400 mg Documented by: Admin: 01/06/19 21:44 Dose: 400 mg Documented by: Admin: 01/06/19 15:41 Dose: 400 mg Documented by: AURORA Metformin HCl (Glucophage) 500 mg PO [facility] Last Admin: 01/12/19 08:07 Dose: 500 mg Documented by: Admin: 01/11/19 08:15 Dose: 500 mg Documented by: Admin: 01/10/19 07:49 Dose: 500 mg Documented by: Admin: 01/09/19 07:56 Dose: 500 mg Documented by: Admin: 01/08/19 07:55 Dose: 500 mg Documented by: Admin: 01/07/19 08:48 Dose: 500 mg Documented by: KEN Oxycodone/Acetaminophen (Percocet 5-325 Mg) 2 tab PO Q4HP PRN PRN Reason: PAIN LEVEL 3-6 Last Admin: 01/12/19 08:07 Dose: 2 tab Documented by: Admin: 01/12/19 04:02 Dose: 2 tab Documented by: Admin: 01/12/19 00:19 Dose: 2 tab Documented by: Admin: 01/11/19 17:11 Dose: 2 tab Documented by: Admin: 01/11/19 13:03 Dose: 2 tab Documented by: AURORA Prednisone (Prednisone) 20 mg PO [facility] Last Admin: 01/12/19 08:07 Dose: 20 mg Documented by: Admin: 01/11/19 08:15 Dose: 20 mg Documented by: Admin: 01/10/19 07:49 Dose: 20 mg Documented by: Admin: 01/09/19 07:56 Dose: 20 mg Documented by: Admin: 01/08/19 07:55 Dose: 20 mg Documented by: Admin: 01/07/19 08:48 Dose: 20 mg Documented by: KEN Promethazine HCl (Phenergan) 12.5 mg IV Q4HP PRN PRN Reason: Nausea And Vomiting Last Admin: 01/09/19 17:22 Dose: 12.5 mg Documented by: ANGELY Pyridostigmine [place] (Mestinon) 60 mg PO TID [facility] Last Admin: 01/12/19 08:07 Dose: 60 mg Documented by: Admin: 01/11/19 20:38 Dose: 60 mg Documented by: Admin: 01/11/19 14:52 Dose: 60 mg Documented by: Admin: 01/11/19 08:15 Dose: 60 mg Documented by: Admin: 01/10/19 20:23 Dose: 60 mg Documented by: Admin: 01/10/19 15:27 Dose: 60 mg Documented by: Admin: 01/10/19 07:49 Dose: 60 mg Documented by: Admin: 01/09/19 21:13 Dose: 60 mg Documented by: Admin: 01/09/19 15:08 Dose: 60 mg Documented by: Admin: 01/09/19 11:48 Dose: 60 mg Documented by: Admin: 01/08/19 20:46 Dose: 60 mg Documented by: Admin: 01/08/19 15:30 Dose: 60 mg Documented by: Admin: 01/08/19 09:10 Dose: 60 mg Documented by: Admin: 01/07/19 20:46 Dose: 60 mg Documented by: JERPerry Admin: 01/07/19 15:34 Dose: 60 mg Documented by: [facility] Admin: 01/07/19 08:49 Dose: 60 mg Documented by: Admin: 01/06/19 21:53 Dose: 60 mg Documented by: Admin: 01/06/19 15:42 Dose: 60 mg Documented by: AURORA Shift Summary 01/12/19 04:14 Shift Summary by Saida Cohen Pt is A/O. Up with [facility]. Fell on 01/10/19. Has bruise to left hip area. Has been getting PO percocet every 4 hours for pain, last at 0400. No IV pain meds for the last 24 hrs. Pt should discharge to [facility] today. Has NS @50/hr to her left chest port. . Continues to have consistent output from the ileostomy and manages it herself. Voiding via bathroom. Has midline Abd incision with some kori remaining will update with verbal report. Initialized on 01/12/19 04:14 - END OF NOTE
== END 2019-01-12 13:17 | DRG 392 ==
LOC: ED 00:06 → ICU 05:07 → MEDSUR 12:28
PROVIDERS: ADMIT Family Medicine Adult Medicine; ATTEND Family Medicine Adult Medicine

== ENCOUNTER 2019-01-15 20:31 | Inpatient (IN) ==
--- NOTE | 2019-01-15 21:33 | Emergency Department Note ---
Abdominal Pain HPI - General Chief Complaint: Abdominal Pain Stated Complaint: nausea, abdominal pain Time Seen by Provider: 01/15/19 20:36 Source: patient Mode of arrival: wheelchair Limitations: no limitations - History of Present Illness HPI Narrative: Patient referred over from [facility] in which they state that she has been complaining of some weakness today. Patient states she is having some mild abdominal pain but nothing like when she gets obstructed. She was just discharged on 01/12/19 in which she had a pseudoobstruction and was treated with Mestinon and erythromycin which prompted calls to have regular bowel movements again. Ostomy bag is working well she is having no stools the stools are normal she states she states she actually feels pretty well she does not know why she is even here. Denies any urgency frequency or dysuria. She was able to ambulate well to the bathroom on her own. - Related Data Home Medications Medication Instructions Recorded Confirmed DULoxetine [Cymbalta] 30 mg PO BID 11/30/16 01/06/19 Levothyroxine [Synthroid] 250 mcg PO QAMAC 08/20/17 01/06/19 Polyethylene Glycol 3350 [Miralax] 17 gm PO BID 09/18/17 01/06/19 calcitriol 0.25 mcg capsule 0.5 mcg PO TID cap 11/05/17 01/06/19 Bisacodyl [Dulcolax] 10 mg HI DAILYP PRN 01/15/19 01/15/19 Na Phos,M-B/Na Phos,Di-Ba [Fleets 1 dose HI DAILYP PRN 01/15/19 01/15/19 Adult] Polyethylene Glycol 3350 [Miralax] 17 gm PO DAILYP PRN 01/15/19 01/15/19 Previous Rx's Medication Instructions Recorded predniSONE [Prednisone] 20 mg PO [facility] #4 tab 05/18/16 Lisinopril [Zestril] 20 mg PO BID #60 tab 12/06/17 Calcium Carbonate 1,250 mg PO BID #350 oral.susp 07/12/18 Magnesium Oxide 400 mg PO TID #90 tab 07/12/18 metFORMIN HCL [Metformin HCl] 500 mg PO DAILY #30 tab 10/17/18 Mupirocin Oint 2% [Bactroban Oint 1 dose TOPICAL BID #0 tube 11/27/18 2%] Cyclobenzaprine [Flexeril] 10 mg PO TID #30 tab 01/12/19 oxyCODONE/APAP [Percocet 5-325 mg] 2 tab PO Q4HP PRN #30 tab 01/12/19 Allergies Allergy/AdvReac Type Severity Reaction Status Date / Time Sulfa (Sulfonamide Allergy Severe Anaphylaxis Verified 01/15/19 20:37 Antibiotics) adhesive tape AdvReac Mild Blister Verified 01/15/19 20:37 metoclopramide [From Reglan] AdvReac Mild Anxiety Verified 01/15/19 20:37 steri strips Allergy Severe Blister Uncoded 11/03/18 09:30 Review of Systems All systems ED: reviewed and negative except as stated. Constitutional: Denies: fever, chills Gastrointestinal: Reports: as per HPI, abdominal pain (Some slight abdominal cramping in the right). Denies: nausea, vomiting, diarrhea, constipation Genitourinary: Denies: dysuria, urgency, frequency, hematuria Musculoskeletal: Denies: back pain, joint swelling Integumentary: Denies: rash, lesions Abdominal Pain PMH - Past Medical History [facility] Narrative: All Active Problems (Last Updated 01/06/19 @ 03:11 by Robb Goldberg DO) Chronic intestinal pseudo-obstruction (Acute) Diabetes mellitus type 2, uncontrolled (Chronic) Small bowel obstruction (Acute) Abdominal pain (Acute) Nausea & vomiting (Acute) Hyponatremia (Acute) Dehydration (Acute) S/P ileostomy (Chronic) Obesity, Class II, BMI 35-39.9 (Chronic) Hypertension (Chronic) Recurrent intestinal obstruction (Chronic) Chronic use of steroids (Chronic) Abnormal liver enzymes (Chronic) Hypothyroidism (Chronic) Myasthenia gravis (Chronic) Polyglandular autoimmune syndrome (Chronic) Sarcoidosis (Chronic) Hypocalcemia (Chronic) Achalasia and cardiospasm (Chronic) Constipation due to pain medication therapy (Chronic) Encounter for care related to Port-a-Cath (Chronic) Past Surgical History (Last Updated 01/06/19 @ 03:11 by Robb Goldberg DO) S/P ileostomy (Chronic) History of exploratory laparotomy (Acute) History of exploratory laparotomy (Acute) History of exploratory laparotomy (Acute) History of exploratory laparotomy (Acute) Family History (Last Reviewed 11/03/18 @ 09:33 by Jayla Hay [facility]) Father CAD (coronary artery disease) Mother CAD (coronary artery disease) Grandfather CVA (cerebral vascular accident) Grandmother CVA (cerebral vascular accident) Medical history: Reports: COPD, hypertension, hypothyroidism, other (Myasthenia gravis). 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 Denies: marijuana Physical Exam Limitations: no limitations General appearance: alert Head: atraumatic, normocephalic Eye: Present: normal appearance, PERRL ENT: normal exam, normal oropharynx, mucous membranes moist Neck: Present: normal inspection, full ROM Chest: Present: normal inspection, symmetric chest wall rise Respiratory: Present: normal lung sounds bilaterally Cardiovascular: Present: regular rate, normal rhythm Course Vital Signs Temperature 99.1 F H 01/15/19 20:33 Pulse Rate 113 H 01/15/19 20:33 Respiratory Rate 18 01/15/19 20:33 Blood Pressure 127/88 01/15/19 20:33 Pulse Oximetry (%) 95 01/15/19 20:33 Temperature 99.1 F H 01/15/19 20:33 Pulse Rate 106 H 01/15/19 22:15 Respiratory Rate 26 H 01/15/19 22:15 Blood Pressure 116/72 01/15/19 22:01 Pulse Oximetry (%) 94 01/15/19 22:15 Abdominal Pain - [facility] Narrative Medical decision making narrative: His white count is 8400 hemoglobin 10.8 hematocrit 34.4 the lactic is 1.5 the calcium came back panic high as 15.7 the BUN is 21 creatinine 1.5 sodium is 136 potassium 4.4. [facility] had a reading earlier today of the calcium being 16.4. Previous calciums have always been a little low in the [address] Tucker contacted and he is here to evaluate - Lab Data Result diagrams: 01/15/19 21:02 01/15/19 21:02 Lab Results 01/15/19 01/15/19 01/15/19 Range/Units 21:02 21:02 21:02 WBC 8.4 (4.5-11.0) K/mcL RBC 4.16 (4.00-5.20) M/mcL Hgb 10.8 L (12.0-15.0) g/dL Hct 34.4 L (36.0-48.0) % MCV 82.7 (80.0-100.0) fL MCH 25.9 L (26.0-34.0) pg MCHC 31.3 (31.0-36.0) g/dL RDW 18.5 H (11.5-14.5) % Plt Count 375 (140-440) K/mcL MPV 7.7 (7.4-10.4) fL Gran % 72.3 (38.0-78.0) % Lymph % (Auto) 18.4 (15.5-49.0) % [place] % (Auto) 7.7 (1.0-12.0) % Eos % (Auto) 1.0 (0.0-7.0) % Baso % (Auto) 0.6 (0.0-2.0) % Gran # 6.1 (1.8-8.0) K/mcL Lymph # (Auto) 1.5 (1.5-4.8) K/mcL [place] # (Auto) 0.6 (0.1-0.9) K/mcL Eos # (Auto) 0.1 (0.0-0.7) K/mcL Baso # (Auto) 0.1 (0.0-0.3) K/mcL VBG Lactic Acid 1.5 (0.5-2.0) mmol/L Sodium 136 (133-145) mmol/L Potassium 4.4 (3.3-5.1) mmol/L Chloride 88 L (96-108) mmol/L Carbon Dioxide 37 H (22-30) mmol/L Anion Gap 11.0 (8-16) BUN 21 H (6-20) mg/dl Creatinine 1.5 H (0.6-1.1) mg/dl GFR Calculation 38 Glucose 161 H (70-105) mg/dL Calcium 15.7 H* (8.6-10.4) mg/dl Total Bilirubin 0.4 (0.0-1.0) mg/dL AST 13 (0-37) U/l ALT 22 (0-40) U/l Alkaline Phosphatase 95 (39-117) U/L Total Protein 6.0 (5.9-8.4) gm/dL Albumin 3.3 (3.2-5.2) gm/dL Globulin 2.7 (2.2-3.7) gm/dL Albumin/Globulin Ratio 1.2 (1.0-2.3) Lipase 8 (7-60) U/L Urine Color Urine Appearance Urine pH (5.0-9.0) Ur Specific [place] (1.000-1.035) Urine Protein (NEG) mg/dL Urine Glucose (UA) (NEG) mg/dL Urine Ketones (NEG) mg/dL Urine Occult Blood (<0.03) mg/dL Urine Nitrate (NEG) Urine Bilirubin (NEG) mg/dL Urine Urobilinogen (NEG) mg/dL Ur Leukocyte Esterase (NEG) /uL Urine RBC (0-1) /hpf Urine WBC (0-4) /hpf Ur Squamous Epith Cells (0-4) /hpf Amorphous Crystals (0) /hpf Urine Bacteria (0) /hpf Urine Mucus (0) /hpf Ur Culture Indicated? 01/15/19 Range/Units 21:19 WBC (4.5-11.0) K/mcL RBC (4.00-5.20) M/mcL Hgb (12.0-15.0) g/dL Hct (36.0-48.0) % MCV (80.0-100.0) fL MCH (26.0-34.0) pg MCHC (31.0-36.0) g/dL RDW (11.5-14.5) % Plt Count (140-440) K/mcL MPV (7.4-10.4) fL Gran % (38.0-78.0) % Lymph % (Auto) (15.5-49.0) % [place] % (Auto) (1.0-12.0) % Eos % (Auto) (0.0-7.0) % Baso % (Auto) (0.0-2.0) % Gran # (1.8-8.0) K/mcL Lymph # (Auto) (1.5-4.8) K/mcL [place] # (Auto) (0.1-0.9) K/mcL Eos # (Auto) (0.0-0.7) K/mcL Baso # (Auto) (0.0-0.3) K/mcL VBG Lactic Acid (0.5-2.0) mmol/L Sodium (133-145) mmol/L Potassium (3.3-5.1) mmol/L Chloride (96-108) mmol/L Carbon Dioxide (22-30) mmol/L Anion Gap (8-16) BUN (6-20) mg/dl Creatinine (0.6-1.1) mg/dl GFR Calculation Glucose (70-105) mg/dL Calcium (8.6-10.4) mg/dl Total Bilirubin (0.0-1.0) mg/dL AST (0-37) U/l ALT (0-40) U/l Alkaline Phosphatase (39-117) U/L Total Protein (5.9-8.4) gm/dL Albumin (3.2-5.2) gm/dL Globulin (2.2-3.7) gm/dL Albumin/Globulin Ratio (1.0-2.3) Lipase (7-60) U/L Urine Color Yellow Urine Appearance Cloudy Urine pH 8.0 (5.0-9.0) Ur Specific [place] 1.008 (1.000-1.035) Urine Protein Neg (NEG) mg/dL Urine Glucose (UA) Negative (NEG) mg/dL Urine Ketones Neg (NEG) mg/dL Urine Occult Blood Neg (<0.03) mg/dL Urine Nitrate Neg (NEG) Urine Bilirubin Neg (NEG) mg/dL Urine Urobilinogen Neg (NEG) mg/dL Ur Leukocyte Esterase Neg (NEG) /uL Urine RBC < 1 (0-1) /hpf Urine WBC 3 (0-4) /hpf Ur Squamous Epith Cells 1 (0-4) /hpf Amorphous Crystals Mod A (0) /hpf Urine Bacteria 0 (0) /hpf Urine Mucus Few (0) /hpf Ur Culture Indicated? 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
[2019-01-15 22:00] LABS: Appearance,Urine CLOUDY; Bacteria,Urine 0 /hpf (0); Bilirubin,Urine NEG (NEG); Color,Urine YELLOW; Glucose,Urine (UA) NEGATIVE (NEG); Leukocyte Esterase,Urine NEG /uL (NEG); Mucus,Urine FEW /hpf (0); Protein,Urine NEG (NEG); Specific Gravity,Urine 1.008 (1.000-1.035); Urine Amorphous Crystals MOD /hpf (0); Urine Blood NEG mg/dL (<0.03); Urine RBC < 1 /hpf (0-1); Urine Squamous Epithelial Cell 1 /hpf (0-4); Urine WBC 3 /hpf (0-4); Urobilinogen,Urine NEG (NEG)
[2019-01-15 22:09] LABS: Basophils # (Auto) 0.1 K/mcL (0.0-0.3); Basophils % (Auto) 0.6 % (0.0-2.0); Eosinophils # (Auto) 0.1 K/mcL (0.0-0.7); Granulocytes % (Auto) 72.3 % (38.0-78.0); Lymphocytes # (Auto) 1.5 K/mcL (1.5-4.8); Lymphocytes % (Auto) 18.4 % (15.5-49.0); Mean Cell Volume 82.7 fL (80.0-100.0); Mean Corpuscular HGB Conc 31.3 g/dL (31.0-36.0); Monocytes # (Auto) 0.6 K/mcL (0.1-0.9); Monocytes % (Auto) 7.7 % (1.0-12.0); Platelet Count 375 K/mcL (140-440); RBC 4.16 M/mcL (4.00-5.20); Red Cell Distribution Width 18.5 % (11.5-14.5)
[2019-01-15 22:17] LABS: ALT/SGPT 22 U/l (0-40); Albumin 3.3 gm/dL (3.2-5.2); Albumin/Globulin Ratio 1.2 (1.0-2.3); Alkaline Phosphatase 95 U/L (39-117); Blood Urea Nitrogen 21 mg/dl (6-20); Lipase 8 U/L (7-60)
[2019-01-15] MEDS ORDERED: 0.9 % SODIUM CHLORIDE 1,000 ML IV ONE (22:27)
--- NOTE | 2019-01-15 22:51 | Internal Med History&Physical ---
Medical - H&P: HPI Patient information: Note initiated : 01/15/19 at 10:49 pm Service Date, if different from initiated Date: [] Patient: Dayanna Stephens a 58 y/o F admitted on for Nausea, Abdominal Pain. Chief Complaint: [] History of present illness: Ms. Stephens is a 58 year old F with history of hypoparathyroidism s, chronic hypocalcemia, polyglandular syndrome, sarcoidosis, myasthenia gravis, presents to the hospital today for evaluation of weakness. The patient was discharged 4 days ago by surgery, she had a long stay in the hospital at that time. The patient at the rehab center developed weakness some confusion and was not herself and therefore was sent to the hospital for further evaluation. The patient also thinks that she is slightly dehydrated. Lab work done at the rehab center shows that the calcium level was 16.2. The patient besides the above complaints has no new complaints or concerns. Her calcium level was checked again and is 15.7, creatinine is 1.5. The rest of the labs are unremarkable, albumin is 3.3. The patient has been admitted to the hospital for further management She has chronic abdominal pain, denies any new headache changes in vision denies any difficulty in swallowing denies any chest pain or shortness of breath, admits to fatigue and tiredness. Does not complain about any abdominal obstruction, her ostomy bag is functioning fine. Denies any urinary complaints, denies any new joint pains or skin rashes All systems: reviewed and no additional remarkable complaints except as stated (as per HPI) Medical - H&P: [facility] Medical history: Medical History (Last Updated 01/06/19 @ 03:11 by Robb Goldberg DO) Diabetes mellitus type 2, uncontrolled (Chronic) Obesity, Class II, BMI 35-39.9 (Chronic) Hypertension (Chronic) Recurrent intestinal obstruction (Chronic) Chronic use of steroids (Chronic) Abnormal liver enzymes (Chronic) Hypothyroidism (Chronic) Myasthenia gravis (Chronic) Polyglandular autoimmune syndrome (Chronic) Sarcoidosis (Chronic) Hypocalcemia (Chronic) Achalasia and cardiospasm (Chronic) Constipation due to pain medication therapy (Chronic) Supraventricular tachycardia (Resolved) Encounter for care related to Port-a-Cath (Chronic) Abdominal pain (Resolved) Abdominal wound dehiscence (Resolved) Adverse reaction to drug (Resolved) Anaphylaxis (Resolved) Bowel obstruction (Resolved) 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) Constipation due to neurogenic bowel (Resolved) Fecal impaction (Resolved) Foot sprain (Resolved) Ileus (Resolved) Infiltrate of lung present on imaging of chest (Resolved) Nausea (Resolved) Nausea & vomiting (Resolved) Obstruction of descending colon (Resolved) Pancreatitis (Resolved) Parastomal hernia with obstruction, without gangrene (Resolved) Partial intestinal obstruction, unspecified as to cause (Resolved) Pneumonia (Resolved) Primary chronic pseudo-obstruction of large intestine (Resolved) Pseudoobstruction of colon (Resolved) Pyelonephritis (Resolved) Sepsis associated hypotension (Resolved) Severe sepsis (Resolved) Sigmoid volvulus (Resolved) Small bowel obstruction (Resolved) Small bowel obstruction (Resolved) Small bowel obstruction (Resolved) Small bowel obstruction due to adhesions (Resolved) Small bowel obstruction due to postoperative adhesions (Resolved) Small bowel obstruction, partial (Resolved) UTI (urinary tract infection) (Resolved) Volvulus of sigmoid colon (Resolved) Surgical history: Past Surgical History (Last Updated 01/06/19 @ 03:11 by Robb Goldberg DO) S/P ileostomy (Chronic) History of exploratory laparotomy (Acute) History of exploratory laparotomy (Acute) History of exploratory laparotomy (Acute) History of exploratory laparotomy (Acute) Family history: reviewed and not pertinent Medical - H&P: Meds Home Medications Medication Instructions Recorded Confirmed Type predniSONE [Prednisone] 20 mg PO [facility] #4 tab 05/18/16 01/15/19 Rx DULoxetine [Cymbalta] 30 mg PO BID 11/30/16 01/15/19 History Levothyroxine [Synthroid] 250 mcg PO QAMAC 08/20/17 01/15/19 History Polyethylene Glycol 3350 [Miralax] 17 gm PO BID 09/18/17 01/15/19 History calcitriol 0.25 mcg capsule 0.5 mcg PO TID cap 11/05/17 01/15/19 History Lisinopril [Zestril] 20 mg PO BID #60 tab 12/06/17 01/15/19 Rx Calcium Carbonate 1,250 mg PO BID #350 oral.susp 07/12/18 01/15/19 Rx Magnesium Oxide 400 mg PO TID #90 tab 07/12/18 01/15/19 Rx metFORMIN HCL [Metformin HCl] 500 mg PO DAILY #30 tab 10/17/18 01/15/19 Rx Mupirocin Oint 2% [Bactroban Oint 1 dose TOPICAL BID #0 tube 11/27/18 01/15/19 Rx 2%] Cyclobenzaprine [Flexeril] 10 mg PO TID #30 tab 01/12/19 01/15/19 Rx oxyCODONE/APAP [Percocet 5-325 mg] 2 tab PO Q4HP PRN #30 tab 01/12/19 01/15/19 Rx Bisacodyl [Dulcolax] 10 mg OK DAILYP PRN 01/15/19 01/15/19 History Na Phos,M-B/Na Phos,Di-Ba [Fleets 1 dose OK DAILYP PRN 01/15/19 01/15/19 History Adult] Polyethylene Glycol 3350 [Miralax] 17 gm PO DAILYP PRN 01/15/19 01/15/19 History Allergies Allergy/AdvReac Type Severity Reaction Status Date / Time Sulfa (Sulfonamide Allergy Severe Anaphylaxis Verified 01/15/19 20:37 Antibiotics) adhesive tape AdvReac Mild Blister Verified 01/15/19 20:37 metoclopramide [From Reglan] AdvReac Mild Anxiety Verified 01/15/19 20:37 steri strips Allergy Severe Blister Uncoded 11/03/18 09:30 Medical - H&P: Exam - Constitutional Vitals: Temp Pulse Resp BP Pulse Ox 99.1 F H 96 H 15 124/71 94 01/15/19 20:33 01/15/19 22:48 01/15/19 22:48 01/15/19 22:46 01/15/19 22:48 Exam: Constitutional; Afebrile, cooperative, alert, not in distress. Eyes- No icterus, , No periorbital swelling Ears- Ext ear normal, hearing normal to conversation. Neck- Midline trachea, supple Respiratory system: Air Entry equal on both sides, No crackles or wheezing, no rhonchi. CVS- Rate rhythm regular, S1,S2 heard, no gallop, no rub. Abdomen- Soft abdomen, no organomegaly, no tenderness, no guarding or rigidity, stoma functioning well, mild tenderness VICE PRESIDENT MEDIA RELATIONS- AOOx3, moving all extremities, no gross focal deficit noted. Medical - H&P: Reslt - Labs CBC & Chem 7: 01/15/19 21:02 01/15/19 21:02 Labs: Short CBC 01/15/19 Range/Units 21:02 WBC 8.4 (4.5-11.0) K/mcL Hgb 10.8 L (12.0-15.0) g/dL Hct 34.4 L (36.0-48.0) % Plt Count 375 (140-440) K/mcL BMP 01/15/19 21:02 Sodium 136 Potassium 4.4 Chloride 88 L Carbon Dioxide 37 H BUN 21 H Creatinine 1.5 H Glucose 161 H Calcium 15.7 H* Liver Function 01/15/19 Range/Units 21:02 Total Bilirubin 0.4 (0.0-1.0) mg/dL AST 13 (0-37) U/l ALT 22 (0-40) U/l Alkaline Phosphatase 95 (39-117) U/L Albumin 3.3 (3.2-5.2) gm/dL Urine 01/15/19 Range/Units 21:19 Urine Color Yellow Urine Appearance Cloudy Urine pH 8.0 (5.0-9.0) Ur Specific Sims 1.008 (1.000-1.035) Urine Protein Neg (NEG) mg/dL Urine Glucose (UA) Negative (NEG) mg/dL Medical - H&P: A/P - Narrative A/P Narrative: A/P Acute hypercalcemia -Throughout the patient's multiple admission in this hospital, the patient has always had low electrolyte values and very low calcium. She has required multiple IV calcium gluconate injections and high doses of calcium to keep the calcium level up. She has been discharged with calcitriol in the past to keep her calcium level up. However she has always been discharged home. She was discharged this time to a rehab center. I reviewed the med list from the rehab center, she is on calcitriol 0.5 mcg 3 times a day I do not believe that this is a new medication but a chronic medication for the patient. She is also taking calcium carbonate supplements. It is highly likely that this patient has been chronically noncompliant with her medications, and therefore the calcitriol 0.5 mg which was prescribed to her did not work as intended. Now that she is at a rehab center she has been getting this medication and this unfortunately led to the present side effect of hypercalcemia. I will check PTH levels, vitamin D in 1-25 hydroxy vitamin D levels in this p atient. Will avoid workup for metastasis, or malignancy at this time, unless this recurs without any calcitriol on board. Its remote possibility that she was getting 0.5mg rather than 0.5mcg of calc itriol, but I see that the med list is accurately reflecting the dose. IV fluids for hypercalcemia, saline has been initiated, she will be monitored on telemetry overnight, IV Lasix today for increasing the excretion of calcium in urine. Monitor calcium level Chr abdominal pain, -resume home meds Obesity, Morbid BMI 56 Recurrent SBO -bowels seem to be working well, no obstruction noted on x ray, abdomen . Stool in the bag DVT hep sq Diet Regular Full code. Social History - Tobacco smoking status: Unknown if ever smoked
[2019-01-15] MEDS ORDERED: FUROSEMIDE 40 MG/4 ML VIAL IV ONE ×2 (23:23→23:49)
[2019-01-15] MEDS ORDERED: NALOXONE HCL 0.4 MG/ML VIAL IV PRN (23:23)
[2019-01-15] MEDS ORDERED: ONDANSETRON 4 MG/2 ML VIAL IV PRN (23:23)
[2019-01-15] MEDS: 0.9 % SODIUM CHLORIDE 1,000 ML IV SCH (23:41)
[2019-01-16 00:06] LABS: Parathyroid Hormone Intact 1.4 pg/ml (15-65)
[2019-01-16] MEDS: IPRATROPIUM/ALBUTEROL 3 ML AMPUL.NEB NEB SCH ×3 (02:11→13:30)
[2019-01-16] MEDS: 0.9 % SODIUM CHLORIDE 1,000 ML IV SCH ×4 (04:16→17:36)
[2019-01-16] MEDS: 0.9 % SODIUM CHLORIDE 10 ML SYRINGE IV SCH ×3 (04:16→20:24)
--- NOTE | 2019-01-16 06:00 | XRay Report ---
INDICATION: Abdominal pain. History of previous surgeries and multiple bowel obstructions TECHNIQUE: PA and lateral upright chest x-ray COMPARISON: Previous chest x-rays dated 12/24/2018, 12/22/2018 FINDINGS:No change in small left central venous catheter and infusion port. Previous median sternotomy Elevated right hemidiaphragm. Lungs are negative. No parenchymal infiltrate or mass. Heart size and vascularity are normal. Kriss and mediastinum are negative No interval change IMPRESSION: 1. No acute abnormality. 2. No interval change Interpreted and Authenticated by: All Cormier 01/16/19
--- NOTE | 2019-01-16 06:02 | XRay Report ---
CLINICAL INFORMATION: Abdominal pain. History of recurrent bowel obstruction TECHNIQUE: Supine abdomen. Left lateral decubitus view COMPARISON: Most recent previous examination is dated 01/09/2019 FINDINGS: Bowel gas pattern is unremarkable. There is some small bowel gas but no significant dilatation. No radiographic evidence for mechanical small bowel obstruction. No focal abnormality. No pneumoperitoneum. There is no pneumatosis. No biliary or portal venous gas. IMPRESSION: Nonspecific and nonobstructive bowel gas pattern Interpreted and Authenticated by: All Cormier 01/16/19
[2019-01-16 06:35] LABS: ALT/SGPT 22 U/l (0-40); Albumin 3.2 gm/dL (3.2-5.2); Albumin/Globulin Ratio 0.9 (1.0-2.3); Alkaline Phosphatase 101 U/L (39-117); Bilirubin,Direct < 0.2 mg/dL (0.0-0.3); Blood Urea Nitrogen 19 mg/dl (6-20); Gamma Glutamyl Transpeptidase 45 U/L (5-36); Uric Acid 8.4 mg/dL (2.5-8.0)
[2019-01-16] MEDS ORDERED: BISACODYL 10 MG SUPP.RECT PR PRN (07:23)
[2019-01-16] MEDS ORDERED: FLEETS ADULT ENEMA PR PRN (07:23)
[2019-01-16] MEDS ORDERED: POLYETHYLENE GLYCOL 3350 17 GM PACKET PO PRN (07:23)
[2019-01-16] MEDS: LEVOTHYROXINE 125 MCG TABLET PO SCH (07:51)
[2019-01-16] MEDS: predniSONE 20 MG TABLET PO SCH (07:51)
[2019-01-16] MEDS ORDERED: CALCITONIN 400 UNIT/2 ML VIAL IM ONE ×2 (08:27→21:00)
[2019-01-16] MEDS ORDERED: CALCITONIN 400 UNIT/2 ML VIAL IM SCH (09:00)
[2019-01-16] MEDS ORDERED: MAGNESIUM OXIDE 400 MG TABLET PO SCH (09:00)
[2019-01-16] MEDS: DULoxetine 30 MG CAPSULE PO SCH ×2 (10:00→20:23)
[2019-01-16] MEDS: HEPARIN 5,000 UNIT/ML VIAL SQ SCH ×2 (10:00→20:23)
[2019-01-16] MEDS: POLYETHYLENE GLYCOL 3350 17 GM PACKET PO SCH ×2 (10:00→20:28)
[2019-01-16] MEDS: LISINOPRIL 20 MG TABLET PO SCH ×2 (10:00→20:23)
[2019-01-16] MEDS: CYCLOBENZAPRINE 10 MG TABLET PO SCH ×3 (10:00→20:23)
--- NOTE | 2019-01-16 11:12 | Internal Med Progress Note ---
Medical - PN: Subj Patient information: Note initiated : 01/16/19 at 11:09 am Service Date, if different from initiated Date: [] Patient: Dayanna Stephens a 58 y/o F admitted on 01/15/19 for Nausea, Abdominal Pain. Chief Complaint: [] Interval history: Ms. Stephens is a 58 year old F with history of hypoparathyroidism s, chronic hypocalcemia, polyglandular syndrome, sarcoidosis, myasthenia gravis, presents to the hospital today for evaluation of weakness. The patient was discharged 4 days ago by surgery, she had a long stay in the hospital at that time. The patient at the rehab center developed weakness some confusion and was not herself and therefore was sent to the hospital for further evaluation. The patient also thinks that she is slightly dehydrated. Lab work done at the rehab center shows that the calcium level was 16.2. The patient besides the above complaints has no new complaints or concerns. Her calcium level was checked again and is 15.7, creatinine is 1.5. The rest of the labs are unremarkable, albumin is 3.3. The patient has been admitted to the hospital for further management She has chronic abdominal pain, denies any new headache changes in vision denies any difficulty in swallowing denies any chest pain or shortness of breath, admits to fatigue and tiredness. Does not complain about any abdominal obstruction, her ostomy bag is functioning fine. Denies any urinary complaints, denies any new joint pains or skin rashes 01/16 Pt seen examined no acute overnight issues, Calcium level is improved to 14.5, still high pt is voiding adequately, on 200cc/saline still has c hr abdominal pain. start on calcitonin IM Pertinent ROS: Denies headache, dizziness Denies chest pain, palpitations Denies cough or shortness of breath chr abdominal pain, present, nausea or vomiting. - Constitutional Vitals: Vital Signs Temp Pulse Resp BP Pulse Ox 97.1 F 95 H 16 119/77 95 01/16/19 04:00 01/16/19 07:18 01/16/19 07:18 01/16/19 04:00 01/16/19 07:18 Period Temp Pulse Resp BP Sys/Archuleta Pulse Ox Last 24 Hr 97.1 F-99.1 F 93-118 13-26 107-130/64-92 88-98 Intake and Output 01/15/19 01/16/19 01/16/19 21:59 05:59 13:59 Intake Total 2229 997 Output Total 1700 Balance 529 997 Weight 326 lb 326 lb Intake & Output: Intake & Output 01/15/19 01/16/19 01/16/19 21:59 05:59 13:59 Intake Total 2229 997 Output Total 1700 Balance 529 997 Weight 326 lb 326 lb Intake: IV 1749 997 Sodium Chloride 0.9% 1,000 ml @ 1749 997 200 mls/hr IV .Q5H [facility] Rx#: [id number] Oral 480 Output: Void Amount 1700 Other: Urine Appearance Clear Urine Color Pale Urine Odor Normal Stool Size Small Stool Color Green Stool Consistency Soft Liquid Loose # Voids 500 # Bowel Movements 1 Exam: Constitutional; Afebrile, cooperative, alert, not in distress. Respiratory system: Air Entry equal on both sides, No crackles or wheezing, no rhonchi. CVS- Rate rhythm regular, S1,S2 heard, no gallop, no rub. Abdomen- Soft abdomen, no organomegaly, no tenderness, no guarding or rigidity, UTILIZATION REVIEW RN- AOOx3, moving all extremities, no gross focal deficit noted. Medical - PN: Obj Da - Labs CBC & Chem 7: 01/15/19 21:02 01/16/19 04:15 Labs: Abnormal Lab Results 01/16/19 01/15/19 01/15/19 04:15 23:00 21:19 Hgb Hct MCH RDW Chloride 92 L Carbon Dioxide 33 H BUN Creatinine 1.4 H Glucose 115 H Uric Acid 8.4 H Calcium 14.5 H* Magnesium 2.8 H GGT 45 H Albumin/Globulin Ratio 0.9 L Triglycerides 694 H 25-OH Vitamin D Total 20.05 L PTH Intact 1.4 L Amorphous Crystals Mod A 01/15/19 01/15/19 21:02 21:02 Hgb 10.8 L Hct 34.4 L MCH 25.9 L RDW 18.5 H Chloride 88 L Carbon Dioxide 37 H BUN 21 H Creatinine 1.5 H Glucose 161 H Uric Acid Calcium 15.7 H* Magnesium GGT Albumin/Globulin Ratio Triglycerides 25-OH Vitamin D Total PTH Intact Amorphous Crystals Meds: Medications Albuterol/Ipratropium (Duoneb) 3 ml NEB Q6HRT [facility] Last Admin: 01/16/19 07:14 Dose: 3 ml Documented by: Bisacodyl (Dulcolax) 10 mg MD DAILYP PRN PRN Reason: Constipation Calcitonin [place] (Miacalcin) 400 unit IM ONCE ONE Stop: 01/16/19 21:01 Cyclobenzaprine HCl (Flexeril) 10 mg PO TID [facility] Last Admin: 01/16/19 10:00 Dose: 10 mg Documented by: Duloxetine HCl (Cymbalta) 30 mg PO BID [facility] Last Admin: 01/16/19 10:00 Dose: 30 mg Documented by: Heparin Sodium (Porcine) (Heparin) 5,000 unit SQ Q12 [facility] Last Admin: 01/16/19 10:00 Dose: 5,000 unit Documented by: Heparin Sodium (Porcine) (Heparin Flush) 5 ml IV Q12 [facility] Last Admin: 01/16/19 10:00 Dose: 5 ml Documented by: Sodium Chloride (Sodium Chloride 0.9%) 1,000 mls @ 200 mls/hr IV .Q5H [facility] Last Admin: 01/16/19 09:30 Dose: 200 mls/hr Documented by: Levothyroxine Sodium (Synthroid) 250 mcg PO QAMAC [facility] Last Admin: 01/16/19 07:51 Dose: 250 mcg Documented by: Lisinopril (Zestril) 20 mg PO BID [facility] Last Admin: 01/16/19 10:00 Dose: 20 mg Documented by: Magnesium Oxide (Magnesium Oxide) 400 mg PO TID [facility] Last Admin: 01/16/19 10:00 Dose: 400 mg Documented by: Naloxone HCl (Narcan) 0.1 mg IV Q2MIN PRN PRN Reason: Opiate Reversal Ondansetron HCl (Zofran) 4 mg IV Q4HP PRN PRN Reason: Nausea And Vomiting Oxycodone/Acetaminophen (Percocet 5-325 Mg) 2 tab PO Q4HP PRN PRN Reason: Pain Polyethylene Glycol (Miralax) 17 gm PO BID [facility] Last Admin: 01/16/19 10:00 Dose: 17 gm Documented by: Polyethylene Glycol (Miralax) 17 gm PO DAILYP PRN PRN Reason: Constipation [facility]) [facility] Last Admin: 01/16/19 07:51 Dose: 20 mg Documented by: Sodium Biphosphate/Sodium Phosphate (Fleets Adult) 1 dose MD DAILYP PRN PRN Reason: Constipation Sodium Chloride (Saline Flush) 10 ml IV Q8 [facility] Last Admin: 01/16/19 04:16 Dose: Not Given Documented by: Medical - PN: A/P - Time Spent With Patient Total time spent is greater than 50% in coordination of care (as documented) at patient's floor/unit and/or counseling patient: - Narrative A/P Narrative: A/P Acute hypercalcemia -Due to calcitriol, hold same, hold calcium supplements. -pth level low, await 1 25 vit d levels, -Mg 2.8, hold magnesium oxide. -continue IV fluids, pt refusing mitchell, IV lasix given CKD , to help with diuresis, -Start on calcitonin, plan for 2 doses, -Pt high lyle,mg, while in SNF likely indicates non compliance when she was home, and once was getting medications on scheduled basis, she developed high calcium /mg levels. Chr abdominal pain, -resume home meds Obesity, Morbid BMI 56 Recurrent SBO -bowels seem to be working well, no obstruction noted on x ray, abdomen . Stool in the bag DM -on oral metformin, monitor labs on bm, hold metformin for now. DVT hep sq Diet Regular Full code. Medical - PN: Qual - VTE Deep Vein Thrombosis/Pulmonary Embolism Present on Admission: No
[2019-01-16] MEDS: oxyCODONE/APAP 5/325MG TABLET PO PRN ×2 (11:15→20:23)
--- NOTE | 2019-01-16 13:09 | Internal Med Progress Note ---
Medical - PN: Subj Patient information: Note initiated : 01/16/19 at 1:06 pm Service Date, if different from initiated Date: [] Patient: Dayanna Stephens a 58 y/o F admitted on 01/15/19 for Nausea, Abdominal Pain. Chief Complaint: [] Interval history: Ms. Stephens is a 58 year old F with history of hypoparathyroidism s, chronic hypocalcemia, polyglandular syndrome, sarcoidosis, myasthenia gravis, presents to the hospital today for evaluation of weakness. The patient was discharged 4 days ago by surgery, she had a long stay in the hospital at that time. The patient at the rehab center developed weakness some confusion and was not herself and therefore was sent to the hospital for further evaluation. The patient also thinks that she is slightly dehydrated. Lab work done at the rehab center shows that the calcium level was 16.2. The patient besides the above complaints has no new complaints or concerns. Her calcium level was checked again and is 15.7, creatinine is 1.5. The rest of the labs are unremarkable, albumin is 3.3. The patient has been admitted to the hospital for further management She has chronic abdominal pain, denies any new headache changes in vision denies any difficulty in swallowing denies any chest pain or shortness of breath, admits to fatigue and tiredness. Does not complain about any abdominal obstruction, her ostomy bag is functioning fine. Denies any urinary complaints, denies any new joint pains or skin rashes 01/16 Pt seen examined no acute overnight issues, Calcium level is improved to 14.5, still high pt is voiding adequately, on 200cc/saline still has c hr abdominal pain. start on calcitonin IM 01/17 - Constitutional Vitals: Vital Signs Temp Pulse Resp BP Pulse Ox 98.5 F 110 H 16 143/86 95 01/16/19 11:23 01/16/19 11:23 01/16/19 11:23 01/16/19 11:23 01/16/19 11:23 Period Temp Pulse Resp BP Sys/Archuleta Pulse Ox Last 24 Hr 97.1 F-99.1 F 93-118 13-26 107-143/64-92 88-98 Intake and Output 01/15/19 01/16/19 01/16/19 21:59 05:59 13:59 Intake Total 2229 1237 Output Total 1700 575 Balance 529 662 Weight 147.871 kg 147.871 kg 147.871 kg Patient Weight 01/17/19 05:59 Weight 147.871 kg Intake & Output: Intake & Output 01/15/19 01/16/19 01/16/19 21:59 05:59 13:59 Intake Total 2229 1237 Output Total 1700 575 Balance 529 662 Weight 147.871 kg 147.871 kg 147.871 kg Intake: IV 1749 997 Sodium Chloride 0.9% 1,000 ml @ 1749 997 200 mls/hr IV .Q5H [facility] Rx#: [id number] Oral 480 240 Output: Void Amount 1700 575 Other: Meal Breakfast Percent of Meal Consumed 25% Urine Appearance Clear Urine Color Pale Urine Odor Normal Stool Size Small Stool Color Green Stool Consistency Soft Liquid Loose # Voids 500 1 # Bowel Movements 1 Exam: General: Alert, Awake, No acute Distress, obese Eyes/N/T: EOMI, Head/Neck: neck supple, CV: RRR, No murmurs, Pulm: Clear b/l, no wheezing/rhonchi/rales Abd: soft, nontender, +BS x4 Ext: no clubbing/cyanosis/edema Neuro: Alert, no focal deficits, moves all extremities, Skin: warm/dry Medical - PN: Obj Da - Labs CBC & Chem 7: 01/15/19 21:02 01/16/19 04:15 Labs: Abnormal Lab Results 01/16/19 01/15/19 01/15/19 04:15 23:00 21:19 Hgb Hct MCH RDW Chloride 92 L Carbon Dioxide 33 H BUN Creatinine 1.4 H Glucose 115 H Uric Acid 8.4 H Calcium 14.5 H* Magnesium 2.8 H GGT 45 H Albumin/Globulin Ratio 0.9 L Triglycerides 694 H 25-OH Vitamin D Total 20.05 L PTH Intact 1.4 L Amorphous Crystals Mod A 01/15/19 01/15/19 21:02 21:02 Hgb 10.8 L Hct 34.4 L MCH 25.9 L RDW 18.5 H Chloride 88 L Carbon Dioxide 37 H BUN 21 H Creatinine 1.5 H Glucose 161 H Uric Acid Calcium 15.7 H* Magnesium GGT Albumin/Globulin Ratio Triglycerides 25-OH Vitamin D Total PTH Intact Amorphous Crystals Meds: Medications Albuterol/Ipratropium (Duoneb) 3 ml NEB Q6HRT [facility] Last Admin: 01/16/19 07:14 Dose: 3 ml Documented by: Bisacodyl (Dulcolax) 10 mg IN DAILYP PRN PRN Reason: Constipation Calcitonin [place] (Miacalcin) 400 unit IM ONCE ONE Stop: 01/16/19 21:01 Cyclobenzaprine HCl (Flexeril) 10 mg PO TID [facility] Last Admin: 01/16/19 10:00 Dose: 10 mg Documented by: Duloxetine HCl (Cymbalta) 30 mg PO BID [facility] Last Admin: 01/16/19 10:00 Dose: 30 mg Documented by: Furosemide (Lasix) 20 mg IV DAILY [facility] Heparin Sodium (Porcine) (Heparin) 5,000 unit SQ Q12 [facility] Last Admin: 01/16/19 10:00 Dose: 5,000 unit Documented by: Heparin Sodium (Porcine) (Heparin Flush) 5 ml IV Q12 [facility] Last Admin: 01/16/19 10:00 Dose: 5 ml Documented by: Sodium Chloride (Sodium Chloride 0.9%) 1,000 mls @ 200 mls/hr IV .Q5H [facility] Last Admin: 01/16/19 09:30 Dose: 200 mls/hr Documented by: Levothyroxine Sodium (Synthroid) 250 mcg PO QAMAC [facility] Last Admin: 01/16/19 07:51 Dose: 250 mcg Documented by: Lisinopril (Zestril) 20 mg PO BID [facility] Last Admin: 01/16/19 10:00 Dose: 20 mg Documented by: Naloxone HCl (Narcan) 0.1 mg IV Q2MIN PRN PRN Reason: Opiate Reversal Ondansetron HCl (Zofran) 4 mg IV Q4HP PRN PRN Reason: Nausea And Vomiting Oxycodone/Acetaminophen (Percocet 5-325 Mg) 2 tab PO Q4HP PRN PRN Reason: Pain Last Admin: 01/16/19 11:15 Dose: 2 tab Documented by: Polyethylene Glycol (Miralax) 17 gm PO BID [facility] Last Admin: 01/16/19 10:00 Dose: 17 gm Documented by: Polyethylene Glycol (Miralax) 17 gm PO DAILYP PRN PRN Reason: Constipation Prednisone (Prednisone) 20 mg PO [facility] Last Admin: 01/16/19 07:51 Dose: 20 mg Documented by: Sodium Biphosphate/Sodium Phosphate (Fleets Adult) 1 dose IN DAILYP PRN PRN Reason: Constipation Sodium Chloride (Saline Flush) 10 ml IV Q8 [facility] Last Admin: 01/16/19 04:16 Dose: Not Given Documented by: Medical - PN: A/P - Time Spent With Patient Total time spent is greater than 50% in coordination of care (as documented) at patient's floor/unit and/or counseling patient: - Narrative A/P Narrative: A: *Hypercalcemia, acute: Due to calcitriol, hold same, hold calcium supplements. Pt high lyle,mg, while in SNF likely indicates non compliance when she was home, and once was getting medications on scheduled basis, she developed high calcium /mg levels. -pth level low, await 1 25 vit d levels, -Mg 2.8, hold magnesium oxide *Chronic abdominal pain: *Recurrent SBO: bowels seem to be working well, no obstruction noted on x ray, abdomen . Stool in the bag *Orbit obesity: *DM: *Myasthenia gravis: On prednisone 20 mg daily at baseline *HTN: On lisinopril *THANIA III: P: -continue IV fluids, pt refusing mitchell, IV lasix given CKD , to help with diuresis, -Start on calcitonin, plan for 2 doses, - -on oral metformin, monitor labs on bm, hold metformin for now. -pt/ot -ppx: Heparin Medical - PN: Qual - VTE Deep Vein Thrombosis/Pulmonary Embolism Present on Admission: No
[2019-01-16] MEDS: FUROSEMIDE 20 MG/2 ML VIAL IV SCH (13:26)
[2019-01-16] MEDS ORDERED: IPRATROPIUM/ALBUTEROL 3 ML AMPUL.NEB NEB PRN (13:48)
[2019-01-16 14:13] LABS: Blood Urea Nitrogen 19 mg/dl (6-20)
[2019-01-16] MEDS ORDERED: POTASSIUM CHLORIDE 20 MEQ PACKET PO ONE (17:08)
[2019-01-17] MEDS: 0.9 % SODIUM CHLORIDE 1,000 ML IV SCH ×2 (04:01→14:09)
[2019-01-17] MEDS: 0.9 % SODIUM CHLORIDE 10 ML SYRINGE IV SCH ×4 (05:44→21:46)
--- NOTE | 2019-01-17 07:29 | Internal Med Progress Note ---
Medical - PN: Subj Patient information: Note initiated : 01/17/19 at 7:17 am Service Date, if different from initiated Date: [] Patient: Dayanna Stephens a 58 y/o F admitted on 01/15/19 for Nausea, Abdominal Pain. Chief Complaint: [] Interval history: Ms. Stephens is a 58 year old F with history of hypoparathyroidism s, chronic hypocalcemia, polyglandular syndrome, sarcoidosis, myasthenia gravis, presents to the hospital today for evaluation of weakness. The patient was discharged 4 days ago by surgery, she had a long stay in the hospital at that time. The patient at the rehab center developed weakness some confusion and was not herself and therefore was sent to the hospital for further evaluation. The patient also thinks that she is slightly dehydrated. Lab work done at the rehab center shows that the calcium level was 16.2. The patient besides the above complaints has no new complaints or concerns. Her calcium level was checked again and is 15.7, creatinine is 1.5. The rest of the labs are unremarkable, albumin is 3.3. The patient has been admitted to the hospital for further management She has chronic abdominal pain, denies any new headache changes in vision denies any difficulty in swallowing denies any chest pain or shortness of breath, admits to fatigue and tiredness. Does not complain about any abdominal obstruction, her ostomy bag is functioning fine. Denies any urinary complaints, denies any new joint pains or skin rashes 01/16 Pt seen examined no acute overnight issues, Calcium level is improved to 14.5, still high pt is voiding adequately, on 200cc/saline still has c hr abdominal pain. start on calcitonin IM 01/17 No overnight events. Ileostomy leaking last night. Calcium is improving. Good urine output. Chronic abdominal pain. No other acute events. Review of Systems: denies headache/fever/chills/nausea/vomiting/chest pain/cough/dyspnea. Otherwise see above. - Constitutional Vitals: Vital Signs Temp Pulse Resp BP Pulse Ox 98.5 F 95 H 18 131/81 93 01/17/19 04:00 01/17/19 04:00 01/17/19 04:00 01/17/19 04:00 01/17/19 04:00 Period Temp Pulse Resp BP Sys/Archuleta Pulse Ox Last 24 Hr 97.8 F-98.5 F 95-112 14-18 110-143/69-86 89-95 Intake and Output 01/16/19 01/17/19 01/17/19 21:59 05:59 13:59 Intake Total 2204 1200 Output Total 2700 1150 Balance -496 50 Weight 95.708 kg Intake & Output: Intake & Output 01/16/19 01/17/19 01/17/19 21:59 05:59 13:59 Intake Total 2204 1200 Output Total 2700 1150 Balance -496 50 Weight 95.708 kg Intake: IV 1604 1000 Sodium Chloride 0.9% 1,000 ml @ 1604 1000 100 mls/hr IV .Q10H [facility] Rx#: [id number] Oral 600 200 Output: Void Amount 2700 1100 Stool 50 Other: Urine Appearance Clear Urine Color Pale Urine Odor Normal Stool Size Moderate Moderate Stool Color Green Green Stool Consistency Liquid Liquid # Voids 1 # Bowel Movements 1 Exam: General: Alert, Awake, No acute Distress, obese Eyes/N/T: EOMI, Head/Neck: neck supple, CV: RRR, No murmurs, Pulm: Clear b/l, no wheezing/rhonchi/rales Abd: soft, nontender, ostomy in place Ext: no clubbing/cyanosis, trace b/l LE edema Neuro: Alert, no focal deficits, moves all extremities, Skin: warm/dry Medical - PN: Obj Da - Labs CBC & Chem 7: 01/15/19 21:02 01/16/19 13:29 Labs: Abnormal Lab Results 01/16/19 01/16/19 01/15/19 13:29 04:15 23:00 Hgb Hct MCH RDW Chloride 95 L 92 L Carbon Dioxide 35 H 33 H BUN Creatinine 1.4 H 1.4 H Glucose 145 H 115 H Uric Acid 8.4 H Calcium 12.6 H 14.5 H* Magnesium 2.8 H GGT 45 H Albumin/Globulin Ratio 0.9 L Triglycerides 694 H 25-OH Vitamin D Total 20.05 L PTH Intact 1.4 L Amorphous Crystals 01/15/19 01/15/19 01/15/19 21:19 21:02 21:02 Hgb 10.8 L Hct 34.4 L MCH 25.9 L RDW 18.5 H Chloride 88 L Carbon Dioxide 37 H BUN 21 H Creatinine 1.5 H Glucose 161 H Uric Acid Calcium 15.7 H* Magnesium GGT Albumin/Globulin Ratio Triglycerides 25-OH Vitamin D Total PTH Intact Amorphous Crystals Mod A Meds: Medications Albuterol/Ipratropium (Duoneb) 3 ml NEB Q6HP PRN PRN Reason: Shortness Of Breath Bisacodyl (Dulcolax) 10 mg MS DAILYP PRN PRN Reason: Constipation Cyclobenzaprine HCl (Flexeril) 10 mg PO TID [facility] Last Admin: 01/16/19 20:23 Dose: 10 mg Documented by: Duloxetine HCl (Cymbalta) 30 mg PO BID [facility] Last Admin: 01/16/19 20:23 Dose: 30 mg Documented by: Furosemide (Lasix) 20 mg IV DAILY [facility] Last Admin: 01/16/19 13:26 Dose: 20 mg Documented by: Heparin Sodium (Porcine) (Heparin) 5,000 unit SQ Q12 [facility] Last Admin: 01/16/19 20:23 Dose: 5,000 unit Documented by: Heparin Sodium (Porcine) (Heparin Flush) 5 ml IV Q12 [facility] Last Admin: 01/16/19 20:24 Dose: Not Given Documented by: Sodium Chloride (Sodium Chloride 0.9%) 1,000 mls @ 100 mls/hr IV .Q10H [facility] Last Admin: 01/17/19 04:01 Dose: 100 mls/hr Documented by: Levothyroxine Sodium (Synthroid) 250 mcg PO QAMAC [facility] Last Admin: 01/16/19 07:51 Dose: 250 mcg Documented by: Lisinopril (Zestril) 20 mg PO BID [facility] Last Admin: 01/16/19 20:23 Dose: 20 mg Documented by: Naloxone HCl (Narcan) 0.1 mg IV Q2MIN PRN PRN Reason: Opiate Reversal Ondansetron HCl (Zofran) 4 mg IV Q4HP PRN PRN Reason: Nausea And Vomiting Oxycodone/Acetaminophen (Percocet 5-325 Mg) 2 tab PO Q4HP PRN PRN Reason: Pain Last Admin: 01/16/19 20:23 Dose: 2 tab Documented by: Polyethylene Glycol (Miralax) 17 gm PO BID [facility] Last Admin: 01/16/19 20:28 Dose: 17 gm Documented by: Polyethylene Glycol (Miralax) 17 gm PO DAILYP PRN PRN Reason: Constipation Prednisone (Prednisone) 20 mg PO [facility] Last Admin: 01/16/19 07:51 Dose: 20 mg Documented by: Sodium Biphosphate/Sodium Phosphate (Fleets Adult) 1 dose MS DAILYP PRN PRN Reason: Constipation Sodium Chloride (Saline Flush) 10 ml IV Q8 [facility] Last Admin: 01/17/19 05:49 Dose: Not Given Documented by: Medical - PN: A/P - Time Spent With Patient Total time spent is greater than 50% in coordination of care (as documented) at patient's floor/unit and/or counseling patient: - Narrative A/P Narrative: A: *Hypercalcemia, acute: Due to calcitriol, hold same, hold calcium supplements. Pt high lyle/mg while in SNF likely indicates non-compliance when she was home, and once was getting medications on scheduled basis she developed high calcium/mg levels. -pth/vit D level low -Mg 2.8, hold magnesium oxide *Chronic abdominal pain: *Recurrent SBO: bowels seem to be working well, no obstruction noted on x ray, abdomen . Stool in the bag *Morbid obesity: *DM: *Myasthenia gravis: On prednisone 20 mg daily at baseline *HTN: On lisinopril *THANIA on CKD: P: -continue IV fluids, pt refusing mitchell, IV lasix given CKD to help with diuresis -s/p calcitonin x2 doses, -pending AM labs -on oral metformin, monitor labs on bm, hold metformin for now. -ACEI held for now, f/u Cr -pt/ot -ppx: Heparin Medical - PN: Qual - VTE Deep Vein Thrombosis/Pulmonary Embolism Present on Admission: No
[2019-01-17] MEDS: oxyCODONE/APAP 5/325MG TABLET PO PRN ×3 (07:52→19:16)
[2019-01-17] MEDS: LEVOTHYROXINE 125 MCG TABLET PO SCH (07:53)
[2019-01-17] MEDS ORDERED: CARVEDILOL 6.25 MG TABLET PO SCH (08:00)
[2019-01-17] MEDS: predniSONE 20 MG TABLET PO SCH (08:21)
[2019-01-17] MEDS: CYCLOBENZAPRINE 10 MG TABLET PO SCH ×3 (08:21→21:46)
[2019-01-17] MEDS: METOPROLOL SUCCINATE 50 MG TAB.XL.24H PO SCH (08:21)
[2019-01-17] MEDS: DULoxetine 30 MG CAPSULE PO SCH ×2 (08:22→20:39)
[2019-01-17] MEDS: FUROSEMIDE 20 MG/2 ML VIAL IV SCH (08:22)
[2019-01-17] MEDS: HEPARIN 5,000 UNIT/ML VIAL SQ SCH ×2 (08:23→20:39)
[2019-01-17] MEDS: POLYETHYLENE GLYCOL 3350 17 GM PACKET PO SCH ×2 (08:23→20:40)
--- NOTE | 2019-01-17 09:39 | Discharge Summary ---
Medical - DS: Prov Patient information: Note initiated : 01/17/19 at 9:36 am Service Date, if different from initiated Date: [] Patient: Dayanna Stephens 58 y/o F admitted on 01/15/19 for Nausea, Abdominal Pain. Chief Complaint: [] Date of admission: 01/15/19 23:18 Discharge date: 01/19/19 Primary care physician: Douglas Haque Consults: 01/15/19 Consult to Physician [CONS] Stat Comment: Consulting Provider: Reyna Tucker Reason For Exam: Physician to Consult Medical - DS: Meds - Discharge Medications Prescriptions: Calcium Carbonate 1,250 mg PO DAILY #50 oral.susp Lisinopril [Zestril] 20 mg PO DAILY #20 tab Magnesium Oxide 400 mg PO DAILY #10 tab Metoprolol Succinate [Toprol Xl] 50 mg PO DAILY #30 tab.xl.24h Active and Home Medications: Home Medications predniSONE [Prednisone] 20 mg PO [facility] #4 tab 05/18/16 [Rx Confirmed 01/15/19 Last Taken 01/04/19] DULoxetine [Cymbalta] 30 mg PO BID 11/30/16 [History Confirmed 01/16/19 Last Taken 01/15/19 08:00] Levothyroxine [Synthroid] 250 mcg PO QAMAC 08/20/17 [History Confirmed 01/16/19 Last Taken 01/15/19 07:00] Polyethylene Glycol 3350 [Miralax] 17 gm PO BID 09/18/17 [History Confirmed 01/16/19 Last Taken 01/15/19 08:00] calcitriol 0.25 mcg capsule 0.5 mcg PO TID cap 11/05/17 [History Confirmed 01/16/19 Last Taken 01/15/19 14:00] Lisinopril [Zestril] 20 mg PO BID #60 tab 12/06/17 [Rx Confirmed 01/16/19 Last Taken 01/15/19 08:00] Calcium Carbonate 1,250 mg PO BID #350 oral.susp 07/12/18 [Rx Confirmed 01/16/19 Last Taken 01/15/19 08:00] Magnesium Oxide 400 mg PO TID #90 tab 07/12/18 [Rx Confirmed 01/16/19 Last Taken 01/15/19 14:00] metFORMIN HCL [Metformin HCl] 500 mg PO DAILY #30 tab 10/17/18 [Rx Confirmed 01/16/19 Last Taken 01/15/19 08:00] Mupirocin Oint 2% [Bactroban Oint 2%] 1 dose TOPICAL BID #0 tube 11/27/18 [Rx Confirmed 01/16/19 Last Taken 01/15/19 08:00] Cyclobenzaprine [Flexeril] 10 mg PO TID #30 tab 01/12/19 [Rx Confirmed 01/16/19 Last Taken 01/15/19 14:00] oxyCODONE/APAP [Percocet 5-325 mg] 2 tab PO Q4HP PRN #30 tab 01/12/19 [Rx Confirmed 01/16/19 Last Taken 01/15/19 10:00] Bisacodyl [Dulcolax] 10 mg ND DAILYP PRN 01/15/19 [History Confirmed 01/15/19 Last Taken Unknown] Na Phos,M-B/Na Phos,Di-Ba [Fleets Adult] 1 dose ND DAILYP PRN 01/15/19 [History Confirmed 01/15/19 Last Taken Unknown] Polyethylene Glycol 3350 [Miralax] 17 gm PO DAILYP PRN 01/15/19 [History Confirmed 01/15/19 Last Taken Unknown] Medical - DS: Hosp Hospital course: Ms. Stephens is a 58 year old F with history of hypoparathyroidism s, chronic hypocalcemia, polyglandular syndrome, sarcoidosis, myasthenia gravis, presents to the hospital today for evaluation of weakness. The patient was discharged 4 days ago by surgery, she had a long stay in the hospital at that time. The patient at the rehab center developed weakness some confusion and was not herself and therefore was sent to the hospital for further evaluation. The patient also thinks that she is slightly dehydrated. Lab work done at the rehab center shows that the calcium level was 16.2. The patient besides the above complaints has no new complaints or concerns. Her calcium level was checked again and is 15.7, creatinine is 1.5. The rest of the labs are unremarkable, albumin is 3.3. The patient has been admitted to the hospital for further management She has chronic abdominal pain, denies any new headache changes in vision denies any difficulty in swallowing denies any chest pain or shortness of breath, admits to fatigue and tiredness. Does not complain about any abdominal obstruction, her ostomy bag is functioning fine. Denies any urinary complaints, denies any new joint pains or skin rashes 01/16 Pt seen examined no acute overnight issues, Calcium level is improved to 14.5, still high pt is voiding adequately, on 200cc/saline still has c hr abdominal pain. start on calcitonin IM 01/17 No overnight events. Ileostomy leaking last night. Calcium is improving. Good urine output. Chronic abdominal pain. No other acute events. 01/18 Slept better last night. No overnight events. Labs improved. No other acute complaints. 01/19 No overnight events. Adjusting home calcium and magnesium medications. Stable for discharge Discharge diagnosis: Hypocalcemia hypomagnesemia Secondary discharge diagnosis: Chronic abdominal pain with recurrent small bowel obstructions morbid obesity diabetes myasthenia gravis hypertension chronic kidney disease - Time Spent with Patient Total time spent providing and/or coordinating discharge services: Greater than 30 minutes Medical - DS: Exam - Constitutional Vitals: Vital Signs Temp Pulse Pulse Resp BP BP Pulse Ox 01/17/19 08:00 98.0 F 16 128/94 99 01/17/19 04:00 98.5 F 95 H 18 131/81 93 01/16/19 23:01 97.8 F 104 H 16 139/83 93 01/16/19 20:00 98.4 F 112 H 18 110/69 91 01/16/19 15:22 98.1 F 112 H 14 139/78 89 L 01/16/19 13:32 101 H 14 01/16/19 11:23 98.5 F 110 H 16 143/86 95 Intake and Output 01/16/19 01/17/19 01/17/19 21:59 05:59 13:59 Intake Total 2204 1200 1160 Output Total 2700 1150 670 Balance -496 50 490 Intake: IV 1604 1000 Sodium Chloride 0.9% 1,000 ml @ 1604 1000 100 mls/hr IV .Q10H [facility] Rx#: [id number] Oral 059 391 9107 Output: Void Amount 2700 1100 650 Stool 50 20 Other: Meal Breakfast Percent of Meal Consumed 50% Urine Appearance Clear Urine Color Pale Urine Odor Normal Stool Size Moderate Moderate Stool Color Green Green Brown Stool Consistency Liquid Liquid Liquid # Voids 1 1 # Bowel Movements 1 Weight 95.708 kg Medical - DS: Data Labs on day of discharge: Labs from last 24 hours 01/17/19 01/16/19 06:41 13:29 Sodium Pending 141 Potassium Pending 3.3 Chloride Pending 95 L Carbon Dioxide Pending 35 H Anion Gap Pending 11.0 BUN Pending 19 Creatinine Pending 1.4 H GFR Calculation Pending 42 Glucose Pending 145 H Uric Acid Pending Calcium Pending 12.6 H Phosphorus Pending Magnesium Pending Total Bilirubin Pending Direct Bilirubin Pending GGT Pending AST Pending ALT Pending Alkaline Phosphatase Pending Lactate Dehydrogenase Pending Total Protein Pending Albumin Pending Globulin Pending Albumin/Globulin Ratio Pending Triglycerides Pending Medical - DS: A/P - Patient/Caregiver Discharge Instructions Activity: as per physical therapy Diet: Consistent Carbohydrate Additional Instructions: Recommend follow-up chemistry panel (inpatient panel) and 5 days. Prescriptions: Calcium Carbonate 1,250 mg PO DAILY #50 oral.susp Lisinopril [Zestril] 20 mg PO DAILY #20 tab Magnesium Oxide 400 mg PO DAILY #10 tab Metoprolol Succinate [Toprol Xl] 50 mg PO DAILY #30 tab.xl.24h - Follow up Plan Follow up with: Douglas Haque MD [Primary Care Provider] - Disposition: Xf SNF Prognosis: Fair Rehab Potential: Fair I certify that the patient requires SNF services: Yes Overall status at discharge: patient is back to baseline Medical - DS: Qual - VTE Deep Vein Thrombosis/Pulmonary Embolism Present on Admission: No
[2019-01-17 09:48] LABS: ALT/SGPT 16 U/l (0-40); Albumin 3.3 gm/dL (3.2-5.2); Albumin/Globulin Ratio 1.3 (1.0-2.3); Alkaline Phosphatase 82 U/L (39-117); Bilirubin,Direct < 0.2 mg/dL (0.0-0.3); Blood Urea Nitrogen 18 mg/dl (6-20); Gamma Glutamyl Transpeptidase 33 U/L (5-36); Uric Acid 8.1 mg/dL (2.5-8.0)
[2019-01-18] MEDS: oxyCODONE/APAP 5/325MG TABLET PO PRN ×5 (00:03→19:53)
[2019-01-18] MEDS: 0.9 % SODIUM CHLORIDE 1,000 ML IV SCH (00:33)
[2019-01-18] MEDS: 0.9 % SODIUM CHLORIDE 10 ML SYRINGE IV SCH ×3 (04:50→21:43)
[2019-01-18 05:48] LABS: ALT/SGPT 18 U/l (0-40); Albumin/Globulin Ratio 1.3 (1.0-2.3); Alkaline Phosphatase 73 U/L (39-117); Bilirubin,Direct < 0.2 mg/dL (0.0-0.3); Blood Urea Nitrogen 15 mg/dl (6-20); Gamma Glutamyl Transpeptidase 34 U/L (5-36)
[2019-01-18] MEDS ORDERED: POTASSIUM CHLORIDE 20 MEQ TABLET PO ONE (06:21)
--- NOTE | 2019-01-18 06:58 | Internal Med Progress Note ---
Medical - PN: Subj Patient information: Note initiated : 01/18/19 at 6:56 am Service Date, if different from initiated Date: [] Patient: Dayanna Stephens a 58 y/o F admitted on 01/15/19 for Nausea, Abdominal Pain. Chief Complaint: [] Interval history: Ms. Stephens is a 58 year old F with history of hypoparathyroidism s, chronic hypocalcemia, polyglandular syndrome, sarcoidosis, myasthenia gravis, presents to the hospital today for evaluation of weakness. The patient was discharged 4 days ago by surgery, she had a long stay in the hospital at that time. The patient at the rehab center developed weakness some confusion and was not herself and therefore was sent to the hospital for further evaluation. The patient also thinks that she is slightly dehydrated. Lab work done at the rehab center shows that the calcium level was 16.2. The patient besides the above complaints has no new complaints or concerns. Her calcium level was checked again and is 15.7, creatinine is 1.5. The rest of the labs are unremarkable, albumin is 3.3. The patient has been admitted to the hospital for further management She has chronic abdominal pain, denies any new headache changes in vision denies any difficulty in swallowing denies any chest pain or shortness of breath, admits to fatigue and tiredness. Does not complain about any abdominal obstruction, her ostomy bag is functioning fine. Denies any urinary complaints, denies any new joint pains or skin rashes 01/16 Pt seen examined no acute overnight issues, Calcium level is improved to 14.5, still high pt is voiding adequately, on 200cc/saline still has c hr abdominal pain. start on calcitonin IM 01/17 No overnight events. Ileostomy leaking last night. Calcium is improving. Good urine output. Chronic abdominal pain. No other acute events. 01/18 Slept better last night. No overnight events. Labs improved. No other acute complaints. Review of Systems: denies headache/fever/chills/nausea/vomiting/chest pain/cough/dyspnea. Otherwise see above. - Constitutional Vitals: Vital Signs Temp Pulse Resp BP Pulse Ox 99.6 F H 89 16 139/80 96 01/18/19 04:43 01/18/19 04:43 01/18/19 04:43 01/18/19 04:43 01/18/19 04:43 Period Temp Pulse Resp BP Sys/Archuleta Pulse Ox Last 24 Hr 97.9 F-99.6 F 79-89 16-20 128-144/73-96 93-99 Intake and Output 01/17/19 01/18/19 01/18/19 21:59 05:59 13:59 Intake Total 2560 1550 Output Total 1974 1650 Balance 585 -100 Weight 96.343 kg Intake & Output: Intake & Output 01/17/19 01/18/19 01/18/19 21:59 05:59 13:59 Intake Total 2560 1550 Output Total 1974 1650 Balance 585 -100 Weight 96.343 kg Intake: IV 1000 1000 Sodium Chloride 0.9% 1,000 ml @ 1000 1000 100 mls/hr IV .Q10H [facility] Rx#: [id number] Oral 1560 550 Output: Void Amount 1900 1425 Stool 75 225 Other: Meal Dinner Percent of Meal Consumed 50% Feeding Ability Independent Stool Color Green Stool Consistency Liquid # Voids 1 Exam: General: Alert, Awake, No acute Distress, obese Eyes/N/T: EOMI, Head/Neck: neck supple, CV: RRR, No murmurs, Pulm: Clear b/l, no wheezing/rhonchi/rales Abd: soft, nontender, ostomy in place Ext: no clubbing/cyanosis, trace b/l LE edema Neuro: Alert, no focal deficits, moves all extremities, Skin: warm/dry Medical - PN: Obj Da - Labs CBC & Chem 7: 01/15/19 21:02 01/18/19 04:00 Labs: Abnormal Lab Results 01/18/19 01/17/19 01/16/19 04:00 06:41 13:29 Hgb Hct MCH RDW Potassium 3.1 L Chloride 95 L Carbon Dioxide 35 H BUN Creatinine 1.3 H 1.4 H Glucose 115 H 134 H 145 H Uric Acid 8.1 H Calcium 11.4 H 12.6 H Phosphorus 2.3 L 2.6 L Magnesium 1.5 L GGT Total Protein 5.4 L Albumin 3.0 L Albumin/Globulin Ratio Triglycerides 604 H 579 H 25-OH Vitamin D Total PTH Intact Amorphous Crystals 01/16/19 01/15/19 01/15/19 04:15 23:00 21:19 Hgb Hct MCH RDW Potassium Chloride 92 L Carbon Dioxide 33 H BUN Creatinine 1.4 H Glucose 115 H Uric Acid 8.4 H Calcium 14.5 H* Phosphorus Magnesium 2.8 H GGT 45 H Total Protein Albumin Albumin/Globulin Ratio 0.9 L Triglycerides 694 H 25-OH Vitamin D Total 20.05 L PTH Intact 1.4 L Amorphous Crystals Mod A 01/15/19 01/15/19 21:02 21:02 Hgb 10.8 L Hct 34.4 L MCH 25.9 L RDW 18.5 H Potassium Chloride 88 L Carbon Dioxide 37 H BUN 21 H Creatinine 1.5 H Glucose 161 H Uric Acid Calcium 15.7 H* Phosphorus Magnesium GGT Total Protein Albumin Albumin/Globulin Ratio Triglycerides 25-OH Vitamin D Total PTH Intact Amorphous Crystals Meds: Medications Albuterol/Ipratropium (Duoneb) 3 ml NEB Q6HP PRN PRN Reason: Shortness Of Breath Bisacodyl (Dulcolax) 10 mg MO DAILYP PRN PRN Reason: Constipation Cyclobenzaprine HCl (Flexeril) 10 mg PO TID [facility] Last Admin: 01/17/19 21:46 Dose: Not Given Documented by: Duloxetine HCl (Cymbalta) 30 mg PO BID [facility] Last Admin: 01/17/19 20:39 Dose: 30 mg Documented by: Furosemide (Lasix) 20 mg IV DAILY [facility] Last Admin: 01/17/19 08:22 Dose: 20 mg Documented by: Heparin Sodium (Porcine) (Heparin) 5,000 unit SQ Q12 [facility] Last Admin: 01/17/19 20:39 Dose: 5,000 unit Documented by: Heparin Sodium (Porcine) (Heparin Flush) 5 ml IV Q12 [facility] Last Admin: 01/17/19 20:40 Dose: Not Given Documented by: Magnesium Sulfate 8.12 meq/ (Dextrose) 52 mls @ 52 mls/hr IV ONCE ONE Stop: 01/18/19 07:20 Levothyroxine Sodium (Synthroid) 250 mcg PO QAMAC [facility] Last Admin: 01/17/19 07:53 Dose: 250 mcg Documented by: Metoprolol Succinate (Toprol Xl) 50 mg PO DAILY [facility] Last Admin: 01/17/19 08:21 Dose: 50 mg Documented by: Naloxone HCl (Narcan) 0.1 mg IV Q2MIN PRN PRN Reason: Opiate Reversal Ondansetron HCl (Zofran) 4 mg IV Q4HP PRN PRN Reason: Nausea And Vomiting Oxycodone/Acetaminophen (Percocet 5-325 Mg) 2 tab PO Q4HP PRN PRN Reason: Pain Last Admin: 01/18/19 04:49 Dose: 2 tab Documented by: Polyethylene Glycol (Miralax) 17 gm PO BID [facility] Last Admin: 01/17/19 20:40 Dose: 17 gm Documented by: Polyethylene Glycol (Miralax) 17 gm PO DAILYP PRN PRN Reason: Constipation Potassium Chloride (Kdur) 40 meq PO ONCE ONE Stop: 01/18/19 06:22 Prednisone (Prednisone) 20 mg PO [facility] Last Admin: 01/17/19 08:21 Dose: 20 mg Documented by: Sodium Biphosphate/Sodium Phosphate (Fleets Adult) 1 dose MO DAILYP PRN PRN Reason: Constipation Sodium Chloride (Saline Flush) 10 ml IV Q8 [facility] Last Admin: 01/18/19 04:50 Dose: Not Given Documented by: Medical - PN: A/P - Time Spent With Patient Total time spent is greater than 50% in coordination of care (as documented) at patient's floor/unit and/or counseling patient: - Narrative A/P Narrative: A: *Hypercalcemia, acute: Due to calcitriol, hold same, hold calcium supplements. Pt high lyle/mg while in SNF likely indicates non-compliance when she was home, and once was getting medications on scheduled basis she developed high calcium/mg levels. -pth/vit D level low -Mg 2.8, hold magnesium oxide -Resolved *Chronic abdominal pain: *Recurrent SBO: bowels seem to be working well, no obstruction noted on x ray, abdomen . Stool in the bag *Morbid obesity: *DM: *Myasthenia gravis: On prednisone 20 mg daily at baseline *HTN: On lisinopril *THANIA on CKD: Resolved P: -continue IV fluids, pt refusing mitchell, IV lasix given CKD to help with diuresis -s/p calcitonin x2 doses, - -on oral metformin, monitor labs on bm, hold metformin for now. -ACEI held for now, f/u Cr -pt/ot -ppx: Heparin Medical - PN: Qual - VTE Deep Vein Thrombosis/Pulmonary Embolism Present on Admission: No
[2019-01-18] MEDS: LEVOTHYROXINE 125 MCG TABLET PO SCH (07:04)
[2019-01-18] MEDS ORDERED: MAGNESIUM SULFATE 8.12 MEQ in DEXTROSE 5% IN WATER 50 ML IV ONE (08:00)
[2019-01-18] MEDS: predniSONE 20 MG TABLET PO SCH (08:42)
[2019-01-18] MEDS: DULoxetine 30 MG CAPSULE PO SCH ×2 (08:42→19:53)
[2019-01-18] MEDS: CYCLOBENZAPRINE 10 MG TABLET PO SCH ×3 (08:42→19:54)
[2019-01-18] MEDS: METOPROLOL SUCCINATE 50 MG TAB.XL.24H PO SCH (08:42)
[2019-01-18] MEDS: FUROSEMIDE 20 MG/2 ML VIAL IV SCH (08:43)
[2019-01-18] MEDS: HEPARIN 5,000 UNIT/ML VIAL SQ SCH ×2 (08:43→19:53)
[2019-01-18] MEDS: POLYETHYLENE GLYCOL 3350 17 GM PACKET PO SCH ×2 (09:03→19:54)
[2019-01-19] MEDS: oxyCODONE/APAP 5/325MG TABLET PO PRN ×2 (04:03→08:58)
[2019-01-19] MEDS: 0.9 % SODIUM CHLORIDE 10 ML SYRINGE IV SCH (05:36)
[2019-01-19 06:46] LABS: ALT/SGPT 28 U/l (0-40); Albumin 3.1 gm/dL (3.2-5.2); Albumin/Globulin Ratio 1.1 (1.0-2.3); Alkaline Phosphatase 83 U/L (39-117); Bilirubin,Direct < 0.2 mg/dL (0.0-0.3); Blood Urea Nitrogen 17 mg/dl (6-20); Gamma Glutamyl Transpeptidase 41 U/L (5-36); Uric Acid 6.1 mg/dL (2.5-8.0)
[2019-01-19] MEDS ORDERED: MAGNESIUM SULFATE 2 GM/50 ML BAG IV ONE (07:02)
[2019-01-19] MEDS ORDERED: POTASSIUM PHOSPHATE,MONOBASIC 500 MG TABLET PO ONE (07:03)
[2019-01-19] MEDS: predniSONE 20 MG TABLET PO SCH (07:45)
[2019-01-19] MEDS: LEVOTHYROXINE 125 MCG TABLET PO SCH (07:48)
[2019-01-19] MEDS ORDERED: PHOSPHORUS 250 MG TABLET PO ONE (09:00)
[2019-01-19] MEDS ORDERED: HEPARIN SODIUM,PORCINE/PF 500 UNIT/5 ML SYRINGE IV ONE (09:28)
[2019-01-19] MEDS: HEPARIN 5,000 UNIT/ML VIAL SQ SCH (09:31)
[2019-01-19] MEDS: METOPROLOL SUCCINATE 50 MG TAB.XL.24H PO SCH (09:31)
[2019-01-19] MEDS: DULoxetine 30 MG CAPSULE PO SCH (09:31)
[2019-01-19] MEDS: CYCLOBENZAPRINE 10 MG TABLET PO SCH (09:31)
[2019-01-19] MEDS: POLYETHYLENE GLYCOL 3350 17 GM PACKET PO SCH (09:32)
[2019-01-19] MEDS: FUROSEMIDE 20 MG/2 ML VIAL IV SCH (09:32)
== END 2019-01-19 10:38 | DRG 641 ==
LOC: ICU 20:31 → ED 20:31 → OBSVTOIN 23:18 → ICU 23:18
PROVIDERS: ADMIT Internal Medicine; ATTEND Internal Medicine

== ENCOUNTER 2019-01-29 00:57 | Inpatient (IN) ==
[2019-01-29] MEDS ORDERED: IOPAMIDOL 100 ML BOTTLE IV ONE (00:58)
[2019-01-29] MEDS ORDERED: PROMETHAZINE 25 MG/ML VIAL IV ONE ×2 (01:08→03:15)
[2019-01-29] MEDS ORDERED: 0.9 % SODIUM CHLORIDE 1,000 ML IV ONE (01:10)
--- NOTE | 2019-01-29 01:18 | Emergency Department Note ---
Abdominal Pain HPI - General Chief Complaint: Abdominal Pain Stated Complaint: abdominal pain Time Seen by Provider: 01/29/19 01:04 Source: patient Mode of arrival: wheelchair Limitations: no limitations - History of Present Illness HPI Narrative: Patient had just had an appoint with Dr. Currie on postop check and all has been well. Today patient states she is having some pain around the ostomy bag region. Patient still has good output in her ostomy bag and is normal in consistency. Near the ostomy bag. There is been no blood no hematemesis. De nies any urgency frequency dysuria he states that earlier today she started developing some pain to the lower abdominal region.Temperature is 99.1 the pulse is 134 respirations are 20 blood pressure 149/99 pulse ox is 99% rates the pain is a 04/22 - Related Data Home Medications Medication Instructions Recorded Confirmed DULoxetine [Cymbalta] 30 mg PO BID 11/30/16 01/22/19 Levothyroxine [Synthroid] 250 mcg PO QAMAC 08/20/17 01/22/19 Polyethylene Glycol 3350 [Miralax] 17 gm PO BID 09/18/17 01/22/19 Bisacodyl [Dulcolax] 10 mg [place] DAILYP PRN 01/15/19 01/29/19 Na Phos,M-B/Na Phos,Di-Ba [Fleets 1 dose [place] DAILYP PRN 01/15/19 01/22/19 Adult] Polyethylene Glycol 3350 [Miralax] 17 gm PO DAILYP PRN 01/15/19 01/22/19 Previous Rx's Medication Instructions Recorded predniSONE [Prednisone] 20 mg PO [facility] #4 tab 05/18/16 metFORMIN HCL [Metformin HCl] 500 mg PO DAILY #30 tab 10/17/18 Mupirocin Oint 2% [Bactroban Oint 1 dose TOPICAL BID #0 tube 11/27/18 2%] Cyclobenzaprine [Flexeril] 10 mg PO TID #30 tab 01/12/19 Calcium Carbonate 1,250 mg PO DAILY #50 oral.susp 01/18/19 Lisinopril [Zestril] 20 mg PO DAILY #20 tab 01/18/19 Magnesium Oxide 400 mg PO DAILY #10 tab 01/18/19 Metoprolol Succinate [Toprol Xl] 50 mg PO DAILY #30 tab.xl.24h 01/18/19 oxyCODONE/APAP [Percocet 5-325 mg] 2 tab PO Q4H PRN #30 tab 01/19/19 Allergies Allergy/AdvReac Type Severity Reaction Status Date / Time Sulfa (Sulfonamide Allergy Severe Anaphylaxis Verified 01/29/19 00:59 Antibiotics) adhesive tape AdvReac Mild Blister Verified 01/29/19 00:59 metoclopramide [From Reglan] AdvReac Mild Anxiety Verified 01/29/19 00:59 steri strips Allergy Severe Blister Uncoded 01/22/19 10:41 Review of Systems All systems ED: reviewed and negative except as stated. Constitutional: Denies: fever, chills Gastrointestinal: Reports: abdominal pain. Denies: nausea, vomiting, constipation, hematochezia, melena, hematemesis Abdominal Pain PMH - Past Medical History PMF Narrative: All Active Problems (Last Reviewed 01/22/19 @ 10:44 by Steph Hart RN) Chronic intestinal pseudo-obstruction (Acute) Hypercalcemia (Acute) Diabetes mellitus type 2, uncontrolled (Chronic) Small bowel obstruction (Acute) Abdominal pain (Acute) Nausea & vomiting (Acute) Hyponatremia (Acute) Dehydration (Acute) S/P ileostomy (Chronic) Obesity, Class II, BMI 35-39.9 (Chronic) Hypertension (Chronic) Recurrent intestinal obstruction (Chronic) Chronic use of steroids (Chronic) Abnormal liver enzymes (Chronic) Hypothyroidism (Chronic) Myasthenia gravis (Chronic) Polyglandular autoimmune syndrome (Chronic) Sarcoidosis (Chronic) Hypocalcemia (Chronic) Achalasia and cardiospasm (Chronic) Constipation due to pain medication therapy (Chronic) Encounter for care related to Port-a-Cath (Chronic) Past Surgical History (Last Reviewed 01/22/19 @ 10:44 by Steph Hart RN) S/P ileostomy (Chronic) History of exploratory laparotomy (Acute) History of exploratory laparotomy (Acute) History of exploratory laparotomy (Acute) History of exploratory laparotomy (Acute) Family History (Last Reviewed 01/22/19 @ 10:44 by Steph Hart RN) Father CAD (coronary artery disease) Mother CAD (coronary artery disease) Grandfather CVA (cerebral vascular accident) Grandmother CVA (cerebral vascular accident) Medical history: Reports: COPD, hypertension, hypothyroidism, other (Myasthenia gravis). 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 Denies: marijuana Physical Exam Limitations: no limitations General appearance: alert Head: atraumatic, normocephalic Eye: Present: normal appearance, PERRL ENT: normal exam, normal oropharynx Neck: Present: normal inspection, full ROM Chest: Present: normal inspection. Absent: symmetric chest wall rise, tenderness Respiratory: Present: normal lung sounds bilaterally. Absent: respiratory distress, rales/crackles, wheezes Cardiovascular: Present: regular rate, normal rhythm Abdominal: Present: soft, tenderness, normal bowel sounds. Absent: distention, guarding, rebound, rigidity Extremities: Present: normal inspection, full ROM, normal capillary refill. Absent: tenderness Back: Present: normal inspection, full ROM. Absent: tenderness, CVA tenderness (R) Neurological: Present: alert, oriented X3, CN II-XII intact Psychiatric: Present: normal affect, normal mood. Absent: depressed Skin: Present: warm, cool, dry Course Vital Signs Temperature 99.1 F H 01/29/19 00:59 Pulse Rate 134 H 01/29/19 00:59 Respiratory Rate 20 01/29/19 00:59 Blood Pressure 149/93 01/29/19 00:59 Pulse Oximetry (%) 99 01/29/19 00:59 Temperature 99.1 F H 01/29/19 00:59 Pulse Rate 114 H 01/29/19 03:16 Respiratory Rate 25 H 01/29/19 03:57 Blood Pressure 152/89 01/29/19 02:19 Pulse Oximetry (%) 99 01/29/19 03:57 Abdominal Pain - MDM Narrative Medical decision making narrative: WBC IS 12,100 CHEM IS NORMAL. XR ABD SHOWS AIR FLUID LEVELS. CT ABD SHOW SBO. dR CHAVIS CONSULTED. PT TO BE ADMITTED - Lab Data Result diagrams: 01/29/19 01:15 Lab Results 01/29/19 01/29/19 Range/Units 01:15 01:15 WBC 12.1 H (4.5-11.0) K/mcL RBC 4.31 (4.00-5.20) M/mcL Hgb 11.7 L (12.0-15.0) g/dL Hct 36.5 (36.0-48.0) % POC Hct 37.0 (36.0-48.0) % MCV 84.6 (80.0-100.0) fL MCH 27.1 (26.0-34.0) pg MCHC 32.0 (31.0-36.0) g/dL RDW 20.0 H (11.5-14.5) % Plt Count 390 (140-440) K/mcL MPV 7.8 (7.4-10.4) fL Gran % 64.7 (38.0-78.0) % Lymph % (Auto) 25.9 (15.5-49.0) % [place] % (Auto) 8.2 (1.0-12.0) % Eos % (Auto) 0.8 (0.0-7.0) % Baso % (Auto) 0.4 (0.0-2.0) % Gran # 7.8 (1.8-8.0) K/mcL Lymph # (Auto) 3.1 (1.5-4.8) K/mcL [place] # (Auto) 1.0 H (0.1-0.9) K/mcL Eos # (Auto) 0.1 (0.0-0.7) K/mcL Baso # (Auto) 0.1 (0.0-0.3) K/mcL POC Sodium 138 (133-145) mmol/L POC Potassium 3.7 (3.3-5.1) mmol/L POC Chloride 103 (96-108) mmol/L POC Total CO2 22 (22-30) mmol/L POC BUN 22 H (6-20) mg/dl POC Creatinine 0.9 (0.6-1.1) mg/dl POC Glucose 205 H (70-105) mg/dL POC WB Ioniz Calcium 1.03 L (1.16-1.32) mmol/L Disposition Pt seen by WEB DESIGNER/PA only: No Clinical Impression: SBO (small bowel obstruction) Disposition: Xfer As Inpt ([facility]) Condition: Fair Referrals: Douglas Haque MD [Primary Care Provider] -
[2019-01-29] MEDS: HYDROmorphone 2 MG/ML VIAL IV PRN ×10 (01:43→21:32)
[2019-01-29 01:54] LABS: Basophils # (Auto) 0.1 K/mcL (0.0-0.3); Basophils % (Auto) 0.4 % (0.0-2.0); Eosinophils # (Auto) 0.1 K/mcL (0.0-0.7); Eosinophils % (Auto) 0.8 % (0.0-7.0); Granulocytes % (Auto) 64.7 % (38.0-78.0); Lymphocytes # (Auto) 3.1 K/mcL (1.5-4.8); Lymphocytes % (Auto) 25.9 % (15.5-49.0); Mean Cell Volume 84.6 fL (80.0-100.0); Monocytes % (Auto) 8.2 % (1.0-12.0); Platelet Count 390 K/mcL (140-440); RBC 4.31 M/mcL (4.00-5.20)
[2019-01-29] MEDS ORDERED: 0.9 % SODIUM CHLORIDE 1,000 ML IV SCH (04:00)
--- NOTE | 2019-01-29 04:39 | XRay Report ---
CLINICAL INFORMATION: abd pain. History of multiple bowel obstruction COMPARISON: 01/15/2019 FINDINGS: These stomach proximal and mid small bowel are markedly dilated with air-fluid levels in the upright film. Distal small bowel is completely decompressed. No free air IMPRESSION: High-grade recurrent distal small bowel obstruction Interpreted and Authenticated by: All Lundberg 01/29/19
[2019-01-29] MEDS: ONDANSETRON 4 MG/2 ML VIAL IV PRN ×2 (05:36→19:35)
--- NOTE | 2019-01-29 06:15 | XRay Report ---
CLINICAL INFORMATION: check NG tube placement. High-grade distal small bowel obstruction COMPARISON: 01/29/2019 0155 hours FINDINGS: NG tube overlies the gastric body. The stomach and visualized small bowel are markedly dilated bowel high-grade distal small bowel obstruction - no change. No free air IMPRESSION: NG tube overlying the gastric body. High-grade distal small bowel obstruction pattern - unchanged Interpreted and Authenticated by: All Lundberg 01/29/19
[2019-01-29] MEDS ORDERED: BISACODYL 10 MG SUPP.RECT PR PRN (10:05)
[2019-01-29] MEDS ORDERED: POLYETHYLENE GLYCOL 3350 17 GM PACKET PO PRN (10:05)
--- NOTE | 2019-01-29 10:08 | General Surg History&Physical ---
History of Present Illness Patient information: Note initiated : 01/29/19 at 10:06 am Service Date, if different from initiated Date: [] Patient: Dayanna Stephens a 58 y/o F admitted on 01/29/19 for Abdominal Pain. Chief Complaint: abdominal pain HPI: Ms. Stephens is a 58 year old F admitted through the emergency room last night. She had the abrupt onset of upper abdominal pain about midnight. It persisted. She had a couple episodes of vomiting and came to the emergency room where plain films suggested small bowel obstruction. CT scan also was obtained. I reviewed those films, which are concerning for perhaps a transition point in the pelvis, official report is pending. Her past surgical history is lengthy and complex. Just review the last 6 months shows that on 08/10/2018. She underwent extensive adhesio lysis with placement of midline piece of mesh for a large hernia. She was admitted again in on December 06, 2018 underwent extensive adhesio lysis with placements of a Parra tube and intestinal plication. subsequently on December 22, 2018, she underwent another extensive adhesio lysis, this time with a total colectomy and end ileostomy. She recovered from that, and a follow-up with Dr. Currie on January 22 at which time things were doing well. She had also been admitted on January 17 for a few days because of weakness and some electrolyte abnormalities. She states she mainly is uncomfortable in the upper part of her abdomen. She is convinced her multiple medical problems, most particularly her myasthenia gravis can attribute all of this. Her multiple medical problems outlined in her past medical history. She has a by report in the left subclavian position which is being used, th ankfully. This morning she has no distinct complaints, except she is tender in the upper abdomen. She states there is been very little out of her ileostomy. In the last 24 hours. NG tube seems to be functioning well. She denies any fevers or chills. Review of Systems All systems PM: reviewed and no additional remarkable complaints except as stated (per HPI) Past History Past medical history: Medical History (Last Reviewed 01/22/19 @ 10:44 by Steph Hart RN) Diabetes mellitus type 2, uncontrolled (Chronic) Obesity, Class II, BMI 35-39.9 (Chronic) Hypertension (Chronic) Recurrent intestinal obstruction (Chronic) Chronic use of steroids (Chronic) Abnormal liver enzymes (Chronic) Hypothyroidism (Chronic) Myasthenia gravis (Chronic) Polyglandular autoimmune syndrome (Chronic) Sarcoidosis (Chronic) Hypocalcemia (Chronic) Achalasia and cardiospasm (Chronic) Constipation due to pain medication therapy (Chronic) Supraventricular tachycardia (Resolved) Encounter for care related to Port-a-Cath (Chronic) Abdominal pain (Resolved) Abdominal wound dehiscence (Resolved) Adverse reaction to drug (Resolved) Anaphylaxis (Resolved) Bowel obstruction (Resolved) 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) Constipation due to neurogenic bowel (Resolved) Fecal impaction (Resolved) Foot sprain (Resolved) Ileus (Resolved) Infiltrate of lung present on imaging of chest (Resolved) Nausea (Resolved) Nausea & vomiting (Resolved) Obstruction of descending colon (Resolved) Pancreatitis (Resolved) Parastomal hernia with obstruction, without gangrene (Resolved) Partial intestinal obstruction, unspecified as to cause (Resolved) Pneumonia (Resolved) Primary chronic pseudo-obstruction of large intestine (Resolved) Pseudoobstruction of colon (Resolved) Pyelonephritis (Resolved) Sepsis associated hypotension (Resolved) Severe sepsis (Resolved) Sigmoid volvulus (Resolved) Small bowel obstruction (Resolved) Small bowel obstruction (Resolved) Small bowel obstruction (Resolved) Small bowel obstruction due to adhesions (Resolved) Small bowel obstruction due to postoperative adhesions (Resolved) Small bowel obstruction, partial (Resolved) UTI (urinary tract infection) (Resolved) Volvulus of sigmoid colon (Resolved) Past surgical history: Past Surgical History (Last Reviewed 01/22/19 @ 10:44 by Steph Hart RN) S/P ileostomy (Chronic) History of exploratory laparotomy (Acute) History of exploratory laparotomy (Acute) History of exploratory laparotomy (Acute) History of exploratory laparotomy (Acute) Past family history: Family History (Last Reviewed 01/22/19 @ 10:44 by Steph Hart RN) Father CAD (coronary artery disease) Mother CAD (coronary artery disease) Grandfather CVA (cerebral vascular accident) Grandmother CVA (cerebral vascular accident) Past social history: Social History (Last Updated 01/22/19 @ 17:03 by Bertha Currie MD) No tobacco No alcohol or other drugs Lives independently Medications and Allergies Home Medications Medication Instructions Recorded Confirmed Type predniSONE [Prednisone] 20 mg PO [facility] #4 tab 05/18/16 01/29/19 Rx DULoxetine [Cymbalta] 30 mg PO BID 11/30/16 01/29/19 History Levothyroxine [Synthroid] 250 mcg PO QAMAC 08/20/17 01/29/19 History Polyethylene Glycol 3350 [Miralax] 17 gm PO BID 09/18/17 01/29/19 History metFORMIN HCL [Metformin HCl] 500 mg PO DAILY #30 tab 10/17/18 01/29/19 Rx Cyclobenzaprine [Flexeril] 10 mg PO TID #30 tab 01/12/19 01/29/19 Rx Bisacodyl [Dulcolax] 10 mg [place] DAILYP PRN 01/15/19 01/29/19 History Na Phos,M-B/Na Phos,Di-Ba [Fleets 1 dose [place] DAILYP PRN 01/15/19 01/29/19 History Adult] Polyethylene Glycol 3350 [Miralax] 17 gm PO DAILYP PRN 01/15/19 01/29/19 History Calcium Carbonate 1,250 mg PO DAILY #50 oral.susp 01/18/19 01/29/19 Rx Lisinopril [Zestril] 20 mg PO DAILY #20 tab 01/18/19 01/29/19 Rx Magnesium Oxide 400 mg PO DAILY #10 tab 01/18/19 01/29/19 Rx Metoprolol Succinate [Toprol Xl] 50 mg PO DAILY #30 tab.xl.24h 01/18/19 01/29/19 Rx oxyCODONE/APAP [Percocet 5-325 mg] 2 tab PO Q4H PRN #30 tab 01/19/19 01/29/19 Rx Allergies Allergy/AdvReac Type Severity Reaction Status Date / Time Sulfa (Sulfonamide Allergy Severe Anaphylaxis Verified 01/29/19 04:57 Antibiotics) adhesive tape AdvReac Mild Blister Verified 01/29/19 04:57 metoclopramide [From Reglan] AdvReac Mild Anxiety Verified 01/29/19 04:57 steri strips Allergy Severe Blister Uncoded 01/22/19 10:41 Exam Temp Pulse Resp BP Pulse Ox 97.5 F 120 H 14 101/63 99 01/29/19 07:20 01/29/19 07:20 01/29/19 07:20 01/29/19 07:20 04/18/19 07:20 - General physical appearance no distress, obese - Eyes PERRL, normal ocular movement - ENT normal pinna, normal nares, normal mucosa, no hearing loss, no congestion - Head Head exam IM: Present: atraumatic, normocephalic - Neck no masses, no bruits, trachea midline, no lymphadenopathy, no venous distension - Cardiovascular Cardiovascular exam IM: Present: normal rate and rhythm. Absent: diastolic murmur, gallop, systolic murmur - Respiratory clear to auscultation, other (. Distant breath sounds bilaterally with decent excursion) - Abdomen Abdomen: Present: soft, non tender, bowel sounds (some high pitched), surgical scars (wide midline & LLQ incisions without obvious hernias, RLQ ileostomy with yellow stool in bag) - Neurologic Present: normal coordination, normal sensation - Psychiatric Present: oriented to time, oriented to person, oriented to place, speech is normal, memory intact Results - Results Labs: WBC slightly elevated - BUN up I/O good since admission Abdominal x-ray: report reviewed, image reviewed, other (NGT in good position) CT scan - abdomen: image reviewed (concerning for possible transition point in pelvis - there is some distal decompressed small bowel.) Assessment and Plan (1) Small bowel obstruction Clearly, at this point. No consideration of surgical intervention is warranted. We'll continue nasogastric suction and appropriate fluids. She has appropriate analgesics and antiemetics ordered. I've ordered some repeat labs including a CMP tomorrow to assess for her nutritional status. She'll have daily x-rays. Currently waiting for the CT scan report. May need to consider some by mouth contrast to see if there is a clear transition point or if things go through. Certainly this is someone we want to approach for a slowly if at all with any consideration for repeat surgery. I've ordered Lovenox as VT prophylaxis. Status: Acute Priority: High (2) Dehydration Status: Acute Priority: Medium (3) Nausea & vomiting Status: Acute Priority: Medium Qualifiers: Vomiting type: unspecified Vomiting Intractability: intractable Qualified Code(s): R11.2 - Nausea with vomiting, unspecified (4) Chronic use of steroids Status: Chronic Comment: for myasthenia gravis; 10+ years (5) Diabetes mellitus type 2, uncontrolled We'll put her on a sliding scale Status: Chronic (6) Hypertension Status: Chronic Qualifiers: Hypertension type: essential hypertension Qualified Code(s): I10 - Essential (primary) hypertension (7) Hypothyroidism Status: Chronic (8) Myasthenia gravis Status: Chronic (9) Obesity, Class II, BMI 35-39.9 Status: Chronic (10) Polyglandular autoimmune syndrome Status: Chronic (11) Recurrent intestinal obstruction Status: Chronic Comment: many recurrences; many surgical interventions (12) S/P ileostomy Status: Chronic (13) Supraventricular tachycardia Status: Resolved
[2019-01-29] MEDS ORDERED: DEXTROSE 50% 50 ML VIAL IV PRN (10:22)
[2019-01-29] MEDS ORDERED: DEXTROSE 31 GM ORAL.SUSP PO PRN (10:22)
[2019-01-29] MEDS: PROMETHAZINE 25 MG/ML VIAL IV PRN ×2 (11:36→17:18)
[2019-01-29] MEDS: LACTATED RINGERS 1,000 ML IV SCH ×2 (11:38→19:35)
[2019-01-29] MEDS: INSULIN LISPRO 1 UNIT/0.01 ML UNIT SQ SCH ×3 (12:14→21:26)
[2019-01-29] MEDS: CYCLOBENZAPRINE 10 MG TABLET PO SCH ×2 (14:59→20:06)
--- NOTE | 2019-01-29 18:01 | Cat Scan Report ---
CLINICAL INFORMATION: Recurrent small bowel obstruction COMPARISON: Abdomen and pelvic CT - 12/19/2018 TECHNIQUE: Following enteric contrast, 80 cc of Isovue-300 were injected intravenously, and 60 seconds later, 0.625 mm helical slices were obtained from the mid heart through the subtrochanteric regions. Following reconstruction, 2.5 mm sagittal, coronal and axial reformatted images were processed and reviewed at bone, lung and soft tissue windows. Five minutes later, 0.625 mm helical slices were obtained from the mid heart through the kidneys and viewed at soft tissue windows.The exam was performed using radiation dose optimization techniques including, but not limited to, automated exposure control, adjustment of the mA and/or kV according to patient size and use of iterative reconstruction technique. FINDINGS: Lung bases show minimal patchy atelectasis. An 8 mm well-circumscribed nodule in the posterior basilar segment of the left lower lobe is stable. There are no effusions. The visualized heart is normal. Images through the abdomen show the liver is unremarkable. The gallbladder is surgically absent. The intrahepatic and common bile ducts are normal caliber the CBD is 6 mm. Moderate pancreatic atrophy seen - as before. Both kidneys, adrenal glands, spleen and aorta, including aortic branches, are normal in size, configuration and attenuation without focal lesion. Pelvic images show slightly retroverted uterus which is normal size. The urinary bladder is unremarkable. The region ovaries are normal. Total colectomy and partial small bowel resection changes with Abez's pouch noted. There is now an ileostomy in the right lower quadrant. The left lower quadrant ileostomy has been taken down. The stomach, duodenum, and multiple loops of jejunum are markedly dilated to a transition point in the anterior mid mesenteric cavity (axial image 133, sagittal image 115 and coronal image 28). At the transition, there appears to be stricture or adhesions resulting in high-grade small bowel narrowing. The distal small bowel is markedly decompressed. No free intraperineal fluid suggest are spacing. No free air Bone windows show L4-5 spondylolisthesis and broad disc protrusion resulting in severe central canal, right lateral recess IV foraminal narrowing. Marked facet arthropathy noted IMPRESSION: 1. Total colectomy, partial small bowel resection with ileostomy now seen in the right lower quadrant. High-grade small bowel obstruction of the mid ileum due to adhesions or strictures in the anterior central mesenteric cavity. It results in high-grade partial small bowel obstruction. There is no evidence of third spacing or free air. 2. Moderate pancreatic atrophy 3. L4-5: Grade 1 spondylolisthesis resulting in severe central canal, right lateral recess and bilateral IV foraminal narrowing - stable 4. 5.6 x 4 cm fluid collection in the anterior abdominal wall musculature of the central false pelvis. Likely a seroma Interpreted and Authenticated by: All Lundberg 01/29/19
[2019-01-29] MEDS: DULoxetine 30 MG CAPSULE PO SCH (20:06)
[2019-01-30] MEDS: PROMETHAZINE 25 MG/ML VIAL IV PRN ×4 (00:23→23:50)
[2019-01-30] MEDS: HYDROmorphone 2 MG/ML VIAL IV PRN ×10 (00:34→23:49)
[2019-01-30] MEDS: LACTATED RINGERS 1,000 ML IV SCH ×4 (02:55→21:22)
[2019-01-30] MEDS: BENZOCAINE 1 SPRAY BOTTLE TOPICAL PRN ×4 (02:56→13:00)
[2019-01-30 06:09] LABS: ALT/SGPT 17 U/l (0-40); Albumin 2.7 gm/dL (3.2-5.2); Alkaline Phosphatase 79 U/L (39-117); Blood Urea Nitrogen 14 mg/dl (6-20)
[2019-01-30 06:14] LABS: Basophils # (Auto) 0 K/mcL (0.0-0.3); Basophils % (Auto) 0.3 % (0.0-2.0); Eosinophils # (Auto) 0.2 K/mcL (0.0-0.7); Granulocytes % (Auto) 65.1 % (38.0-78.0); Lymphocytes # (Auto) 2.3 K/mcL (1.5-4.8); Lymphocytes % (Auto) 24.4 % (15.5-49.0); Mean Corpuscular HGB Conc 32.5 g/dL (31.0-36.0); Monocytes # (Auto) 0.8 K/mcL (0.1-0.9); Monocytes % (Auto) 8.2 % (1.0-12.0); Platelet Count 252 K/mcL (140-440); RBC 3.54 M/mcL (4.00-5.20); Red Cell Distribution Width 19.5 % (11.5-14.5)
--- NOTE | 2019-01-30 06:36 | XRay Report ---
CLINICAL INFORMATION: FU SBO COMPARISON: 01/29/2019 FINDINGS: NG tube remains in satisfactory position within the gastric body. The stomach is now completely decompressed and there is partial decompression of the small bowel which is only mildly dilated and contain air-fluid levels. The distal small bowel remains gasless. No free air or soft tissue mass IMPRESSION: Improving distal small bowel obstruction following NG decompression. Interpreted and Authenticated by: All Lundberg 01/30/19
[2019-01-30] MEDS: LEVOTHYROXINE 125 MCG TABLET PO SCH (07:08)
[2019-01-30] MEDS: predniSONE 20 MG TABLET PO SCH (07:09)
[2019-01-30] MEDS: INSULIN LISPRO 1 UNIT/0.01 ML UNIT SQ SCH ×4 (07:28→21:35)
--- NOTE | 2019-01-30 07:39 | General Surgery Progress Note ---
Subjective Patient reports: no new complaints, feels better, pain is less, voiding w/o difficulty, no bowel movement Narrative: Note initiated : 01/30/19 at 7:37 am Service Date, if different from initiated Date: [] Patient: Dayanna Stephens a 58 y/o F admitted on 01/29/19 for Abdominal Pain. Chief Complaint: [] HD 1 on NGT for SBO - has been taking ice chips, popsicles so NGT output likely up due to that. Only gas out Ileostomy. States pain is less. Taking Dilaudid & Phenergan lots - will offer some PO pain meds since nursing staff states early transition for her is important. CT report notes transition point. Plain films today look better. Clamping NGT for po meds. Pertinent ROS: No fever chills Still with N No CP Objective Temp Pulse Resp BP Pulse Ox 98.2 F 114 H 18 120/70 94 01/30/19 06:54 01/30/19 02:46 01/30/19 06:54 01/30/19 06:54 01/30/19 06:54 - Additional Data Intake & Output - Last 24 hours: Intake & Output 01/28/19 01/29/19 01/30/19 01/31/19 05:59 05:59 05:59 05:59 Intake Total 1000 2966 756 Output Total 50 3775 250 Balance 950 -809 506 Weight 217 lb 216 lb 8 oz - General physical appearance no distress, obese - Eyes PERRL, normal ocular movement - ENT normal mucosa - Neck no masses, trachea midline, no venous distension - Respiratory normal expansion, normal respiratory effort, clear to percussion, clear to auscultation - Cardiovascular Cardiovascular exam: Present: normal rate and rhythm - Abdomen soft, tender (mildly so in upper quadrants), bowel sounds (minimal today), surgical scars (well healed, ileostomy in RLQ with empty bag) - Neurologic normal coordination, normal sensation - Musculoskeletal other (no edema, negative Justin's) - Labs 01/30/19 04:25 01/30/19 04:25 Diabetes panel 01/30/19 Range/Units 04:25 Sodium 143 (133-145) mmol/L Potassium 3.6 (3.3-5.1) mmol/L Chloride 103 (96-108) mmol/L Carbon Dioxide 27 (22-30) mmol/L BUN 14 (6-20) mg/dl Creatinine 0.7 (0.6-1.1) mg/dl Glucose 127 H (70-105) mg/dL Calcium 6.9 L (8.6-10.4) mg/dl AST 11 (0-37) U/l ALT 17 (0-40) U/l Alkaline Phosphatase 79 (39-117) U/L Total Protein 5.3 L (5.9-8.4) gm/dL Albumin 2.7 L (3.2-5.2) gm/dL Calcium panel 01/30/19 Range/Units 04:25 Calcium 6.9 L (8.6-10.4) mg/dl Albumin 2.7 L (3.2-5.2) gm/dL Pituitary panel 01/30/19 Range/Units 04:25 Sodium 143 (133-145) mmol/L Potassium 3.6 (3.3-5.1) mmol/L Chloride 103 (96-108) mmol/L Carbon Dioxide 27 (22-30) mmol/L BUN 14 (6-20) mg/dl Creatinine 0.7 (0.6-1.1) mg/dl Glucose 127 H (70-105) mg/dL Calcium 6.9 L (8.6-10.4) mg/dl Adrenal panel 01/30/19 Range/Units 04:25 Sodium 143 (133-145) mmol/L Potassium 3.6 (3.3-5.1) mmol/L Chloride 103 (96-108) mmol/L Carbon Dioxide 27 (22-30) mmol/L BUN 14 (6-20) mg/dl Creatinine 0.7 (0.6-1.1) mg/dl Glucose 127 H (70-105) mg/dL Calcium 6.9 L (8.6-10.4) mg/dl Total Bilirubin 0.3 (0.0-1.0) mg/dL AST 11 (0-37) U/l ALT 17 (0-40) U/l Alkaline Phosphatase 79 (39-117) U/L Total Protein 5.3 L (5.9-8.4) gm/dL Albumin 2.7 L (3.2-5.2) gm/dL Assessment and Plan (1) Small bowel obstruction Status: Acute Assessment and plan: PLain films today look better Certainly need an abundance of patience in managing her non-operatively Albumin low - may need attention to nutrition if requires a few more days NGT Blood sugars OK On PO meds clamping NGT - will offer po analgesics as well Passing on care to Dr. Danielson today - encouraging him to call Dr. Currie with th is patient in particular if there are any questions. 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
[2019-01-30] MEDS: CALCIUM CARBONATE 1,250 MG/5 ML ORAL.SUSP PO SCH (09:31)
[2019-01-30] MEDS: MAGNESIUM OXIDE 400 MG TABLET PO SCH (09:32)
[2019-01-30] MEDS: CYCLOBENZAPRINE 10 MG TABLET PO SCH ×3 (09:32→21:24)
[2019-01-30] MEDS: LISINOPRIL 20 MG TABLET PO SCH (09:32)
[2019-01-30] MEDS: ENOXAPARIN 40 MG/0.4 ML SYRINGE SQ SCH (09:32)
[2019-01-30] MEDS: METOPROLOL SUCCINATE 50 MG TAB.XL.24H PO SCH (09:32)
[2019-01-30] MEDS: DULoxetine 30 MG CAPSULE PO SCH ×2 (09:32→21:30)
[2019-01-30] MEDS: HYDROCODONE/APAP 7.5/325MG TABLET PO PRN ×2 (09:40→17:51)
--- NOTE | 2019-01-30 10:57 | General Surgery Progress Note ---
Subjective Patient reports: no new complaints, feels better, bowel movement Narrative: Note initiated : 01/30/19 at 10:55 am Service Date, if different from initiated Date: [] Patient: Dayanna Stephens 58 y/o F admitted on 01/29/19 for Abdominal Pain. Chief Complaint: [small bowel obstruction] I have assumed the care of this patient from Dr. Mcnamara who admitted her yesterday. I have reviewed her current laboratories and x-rays as well as previous operative reports over the past 2 years. The patient has had 8 a bdominal surgeries and a Port-a-Cath placed in the past two years. States she is feeling much better since admission. Her abdomen is sore from dry heaves but it is not distended or tender like it was. Ileostomy is functioning and she has had to burp it several times today. Objective Temp Pulse Resp BP Pulse Ox 98.2 F 124 H 18 120/70 94 01/30/19 06:54 01/30/19 07:30 01/30/19 07:30 01/30/19 06:54 01/30/19 07:30 - Additional Data Intake & Output - Last 24 hours: Intake & Output 01/28/19 01/29/19 01/30/19 01/31/19 05:59 05:59 05:59 05:59 Intake Total 1000 2966 756 Output Total 50 3775 250 Balance 950 -809 506 Weight 217 lb 216 lb 8 oz 216 lb 8 oz - General physical appearance no distress, obese, other (cooperative and appropriate throughout the exam, very good historian) - Eyes normal ocular movement - ENT other (NGT in left nare) - Neck trachea midline, no venous distension - Respiratory normal respiratory effort - Cardiovascular Cardiovascular exam: Present: tachycardia (persistent) - Abdomen soft, tender (to palpation in the area of the colostomy take down site and the epigastrum but it is minimal, no guarding and no peritoneal signs), surgical scars (well healed) - Labs 01/30/19 04:25 01/30/19 04:25 Diabetes panel 01/30/19 Range/Units 04:25 Sodium 143 (133-145) mmol/L Potassium 3.6 (3.3-5.1) mmol/L Chloride 103 (96-108) mmol/L Carbon Dioxide 27 (22-30) mmol/L BUN 14 (6-20) mg/dl Creatinine 0.7 (0.6-1.1) mg/dl Glucose 127 H (70-105) mg/dL Calcium 6.9 L (8.6-10.4) mg/dl AST 11 (0-37) U/l ALT 17 (0-40) U/l Alkaline Phosphatase 79 (39-117) U/L Total Protein 5.3 L (5.9-8.4) gm/dL Albumin 2.7 L (3.2-5.2) gm/dL Calcium panel 01/30/19 Range/Units 04:25 Calcium 6.9 L (8.6-10.4) mg/dl Albumin 2.7 L (3.2-5.2) gm/dL Pituitary panel 01/30/19 Range/Units 04:25 Sodium 143 (133-145) mmol/L Potassium 3.6 (3.3-5.1) mmol/L Chloride 103 (96-108) mmol/L Carbon Dioxide 27 (22-30) mmol/L BUN 14 (6-20) mg/dl Creatinine 0.7 (0.6-1.1) mg/dl Glucose 127 H (70-105) mg/dL Calcium 6.9 L (8.6-10.4) mg/dl Adrenal panel 01/30/19 Range/Units 04:25 Sodium 143 (133-145) mmol/L Potassium 3.6 (3.3-5.1) mmol/L Chloride 103 (96-108) mmol/L Carbon Dioxide 27 (22-30) mmol/L BUN 14 (6-20) mg/dl Creatinine 0.7 (0.6-1.1) mg/dl Glucose 127 H (70-105) mg/dL Calcium 6.9 L (8.6-10.4) mg/dl Total Bilirubin 0.3 (0.0-1.0) mg/dL AST 11 (0-37) U/l ALT 17 (0-40) U/l Alkaline Phosphatase 79 (39-117) U/L Total Protein 5.3 L (5.9-8.4) gm/dL Albumin 2.7 L (3.2-5.2) gm/dL - Imaging Abdominal x-ray: report reviewed, image reviewed (improved from yesterday with less dilation) CT scan - abdomen: report reviewed, image reviewed Assessment and Plan (1) Small bowel obstruction Status: Acute Assessment and plan: 1) continue NGT decompression 2) continue IV hydration 3) strict Intake and Output 4) Patient is taking ice chips and popsicles, need to ensure the intake is well recorded 5) Urinalysis 6) check post void residual 7) will check Mg+ and PO4- as well as regular chemistry in the AM and a HgbA1C 8) if the patient is going to be here for an extended period, will talk with Hospitalist as this patient does have significant issues that are not related to her surgery or surgical issues. 9) she needs to be up ambulating as much as possible and out of bed to the chair more than she is in bed Very long discussion with this patient of greater than 30 minutes about her history and medical problems. The difficulty of her diabetes and chronic steroid use because of her myasthenia gravis history and the fact that she has bowel that does not peristals well. Conservative management for as long as is reasonable possible needs to be done. The only way I would take this patient to the operating room is if she appears to have a complete obstruction with risk of non-viable bowel. Current Visit: Yes - Time Spent With Patient Total time spent is greater than 50% in coordination of care (as documented) at patient's floor/unit and/or counseling patient: Greater than 35 minutes (extensive conversation about history and current issue)
[2019-01-30 19:43] LABS: Appearance,Urine CLEAR; Bacteria,Urine FEW /hpf (0); Bilirubin,Urine NEG (NEG); Color,Urine YELLOW; Glucose,Urine (UA) NEGATIVE (NEG); Leukocyte Esterase,Urine 500 /uL (NEG); Mucus,Urine MANY /hpf (0); Protein,Urine NEG (NEG); Specific Gravity,Urine 1.023 (1.000-1.035); Urine Blood NEG mg/dL (<0.03); Urine RBC < 1 /hpf (0-1); Urine Squamous Epithelial Cell 1 /hpf (0-4); Urine Transitional Epi Cells 1 /hpf (0-2); Urine WBC 18 /hpf (0-4); Urobilinogen,Urine NEG (NEG)
[2019-01-31] MEDS: HYDROmorphone 2 MG/ML VIAL IV PRN ×6 (02:29→20:38)
[2019-01-31] MEDS: ONDANSETRON 4 MG/2 ML VIAL IV PRN (04:26)
[2019-01-31] MEDS: LACTATED RINGERS 1,000 ML IV SCH ×3 (05:29→16:30)
[2019-01-31 05:39] LABS: Ionized Calcium 0.88 mmol/L (1.16-1.32)
[2019-01-31 05:51] LABS: Blood Urea Nitrogen 9 mg/dl (6-20)
[2019-01-31 05:52] LABS: Basophils # (Auto) 0 K/mcL (0.0-0.3); Basophils % (Auto) 0.4 % (0.0-2.0); Eosinophils # (Auto) 0.2 K/mcL (0.0-0.7); Eosinophils % (Auto) 2.5 % (0.0-7.0); Granulocytes % (Auto) 61.4 % (38.0-78.0); Lymphocytes # (Auto) 1.6 K/mcL (1.5-4.8); Lymphocytes % (Auto) 24.5 % (15.5-49.0); Mean Cell Volume 84.9 fL (80.0-100.0); Mean Corpuscular HGB Conc 32.1 g/dL (31.0-36.0); Monocytes # (Auto) 0.8 K/mcL (0.1-0.9); Monocytes % (Auto) 11.2 % (1.0-12.0); Platelet Count 234 K/mcL (140-440); RBC 3.31 M/mcL (4.00-5.20); Red Cell Distribution Width 18.5 % (11.5-14.5)
[2019-01-31 06:15] LABS: Estimated Average Glucose(eAG) 143 mg/dL; Hemoglobin A1C 6.6 % HGB (4.0-6.0)
[2019-01-31] MEDS: PROMETHAZINE 25 MG/ML VIAL IV PRN ×2 (07:21→20:47)
[2019-01-31] MEDS: INSULIN LISPRO 1 UNIT/0.01 ML UNIT SQ SCH ×4 (08:22→20:32)
[2019-01-31] MEDS: HYDROCODONE/APAP 7.5/325MG TABLET PO PRN ×2 (08:22→15:21)
[2019-01-31] MEDS: CYCLOBENZAPRINE 10 MG TABLET PO SCH ×3 (08:23→20:38)
[2019-01-31] MEDS: predniSONE 20 MG TABLET PO SCH (08:23)
[2019-01-31] MEDS: METOPROLOL SUCCINATE 50 MG TAB.XL.24H PO SCH (08:23)
[2019-01-31] MEDS: DULoxetine 30 MG CAPSULE PO SCH ×2 (08:23→20:38)
[2019-01-31] MEDS: LISINOPRIL 20 MG TABLET PO SCH (08:23)
[2019-01-31] MEDS: LEVOTHYROXINE 125 MCG TABLET PO SCH (08:23)
[2019-01-31] MEDS: ENOXAPARIN 40 MG/0.4 ML SYRINGE SQ SCH (08:24)
[2019-01-31] MEDS: MAGNESIUM OXIDE 400 MG TABLET PO SCH (08:25)
[2019-01-31] MEDS: CALCIUM CARBONATE 1,250 MG/5 ML ORAL.SUSP PO SCH (08:30)
[2019-01-31] MEDS ORDERED: MAGNESIUM SULFATE 24.36 MEQ in DEXTROSE 5% IN WATER 50 ML IV ONE (12:00)
[2019-01-31] MEDS ORDERED: POTASSIUM CHLORIDE 40 MEQ in DEXTROSE 5% IN WATER 500 ML IV ONE (12:00)
--- NOTE | 2019-01-31 12:20 | General Surgery Progress Note ---
Subjective Patient reports: no new complaints, pain is less, bowel movement (ileostomy is functioning well and had flatus and per the nursing report) Narrative: Note initiated : 01/31/19 at 12:16 pm Service Date, if different from initiated Date: [] Patient: Dayanna Stephens 58 y/o F admitted on 01/29/19 for Abdominal Pain. Chief Complaint: [small bowel obstruction. Patient states that she does feel better. She is frustrated that she gets anxious when she was in the hospital. She denies any nausea or emesis. States that she has had flatus and her ileostomy appliance in the more output is in the appliance. She does state that when she voids. She does not feel that she completely empties her bladder. A urinalysis was performed yesterday, but it was not a clean catch. Will repeat urinalysis as a clean catch specimen today. Explained this to patient.] She says she is getting out of bed and walking and using her incentive spirometer. Objective Temp Pulse Resp BP Pulse Ox 97.9 F 102 H 20 107/71 97 01/31/19 12:00 01/31/19 12:00 01/31/19 12:00 01/31/19 12:00 01/31/19 12:00 - Additional Data Intake & Output - Last 24 hours: Intake & Output 01/29/19 01/30/19 01/31/19 02/01/19 05:59 05:59 05:59 05:59 Intake Total 1000 2966 4306 Output Total 50 3775 2830 Balance 950 -809 1476 Weight 217 lb 216 lb 8 oz 216 lb 8 oz - General physical appearance no distress, obese - Eyes normal ocular movement - ENT other (nasogastric tube and left nare, no breakdown.) - Respiratory normal respiratory effort - Cardiovascular Additional comments: Patient is consistently tachycardic, other than occasional episodes where it is below 100. She states this is normal for her. No other abnormalities. - Abdomen soft, tender (minimal tenderness in the area of the previous colostomy takedown in the midline incision, which are relatively recent surgical procedures. No areas of infection noted. Ileostomy is healthy, viable and functioning. No tenderness in other areas. Nondistended. Output and nasogastric tube. Signif icant 1100 cc, but the color is better.) - Neurologic other ( alert and oriented to person, place, time and situation) - Musculoskeletal other ( Moving all extremities appropriately and without difficulty) - Labs 01/31/19 04:10 01/31/19 04:10 Diabetes panel 01/31/19 01/31/19 Range/Units 04:10 04:10 Sodium 138 (133-145) mmol/L Potassium 3.3 (3.3-5.1) mmol/L Chloride 95 L (96-108) mmol/L Carbon Dioxide 29 (22-30) mmol/L BUN 9 (6-20) mg/dl Creatinine 0.6 (0.6-1.1) mg/dl Glucose 112 H (70-105) mg/dL Hemoglobin A1c 6.6 H (4.0-6.0) % HGB Calcium panel 01/31/19 01/31/19 Range/Units 04:10 04:10 Ionized Calcium Jeannie 0.88 L (1.16-1.32) mmol/L Phosphorus 3.9 (2.7-4.5) mg/dL Pituitary panel 01/31/19 Range/Units 04:10 Sodium 138 (133-145) mmol/L Potassium 3.3 (3.3-5.1) mmol/L Chloride 95 L (96-108) mmol/L Carbon Dioxide 29 (22-30) mmol/L BUN 9 (6-20) mg/dl Creatinine 0.6 (0.6-1.1) mg/dl Glucose 112 H (70-105) mg/dL Adrenal panel 01/31/19 Range/Units 04:10 Sodium 138 (133-145) mmol/L Potassium 3.3 (3.3-5.1) mmol/L Chloride 95 L (96-108) mmol/L Carbon Dioxide 29 (22-30) mmol/L BUN 9 (6-20) mg/dl Creatinine 0.6 (0.6-1.1) mg/dl Glucose 112 H (70-105) mg/dL Assessment and Plan (1) Small bowel obstruction Status: Acute Assessment and plan: 1) continue NGT decompression 2) continue IV hydration 3) strict Intake and Output 4) Patient is taking ice chips and popsicles, need to ensure the intake is well recorded 5) Urinalysis from yesterday was contaminated, need to perform a clean catch today 6) post void residual was done yesterday, which did demonstrate approximately 100 cc of retained urine, will evaluate clean-cut today and if the patient requires antibiotics for possible UTI, will start these 7) HgbA1C 6.6, which is improved from what the patient states it was earlier. Will ensure that blood glucoses appropriately controlled while she is in the hospital. 8) if the patient is going to be here for an extended period, will talk with Hospitalist as this patient does have significant issues that are not related to her surgery or surgical issues. 9) she needs to be up ambulating as much as possible and out of bed to the chair more than she is in bed 10). Hypokalemia and hypomagnesemia today: These will be replaced IV Conservative management for as long as is reasonable possible needs to be done. The only way I would take this patient to the operating room is if she appears to have a complete obstruction with risk of non-viable bowel. Current Visit: Yes - Time Spent With Patient Total time spent is greater than 50% in coordination of care (as documented) at patient's floor/unit and/or counseling patient: Greater than 35 minutes (significant amount of time was once again spent talking with the patient and going over the plan)
[2019-01-31 13:18] LABS: Appearance,Urine HAZY; Bilirubin,Urine NEG (NEG); Color,Urine YELLOW; Glucose,Urine (UA) NEGATIVE (NEG); Leukocyte Esterase,Urine NEG /uL (NEG); Protein,Urine NEG (NEG); Specific Gravity,Urine 1.018 (1.000-1.035); Urine Blood NEG mg/dL (<0.03); Urobilinogen,Urine NEG (NEG)
[2019-01-31] MEDS: BENZOCAINE 1 SPRAY BOTTLE TOPICAL PRN ×2 (20:32)
[2019-02-01] MEDS: HYDROmorphone 2 MG/ML VIAL IV PRN ×6 (00:40→21:19)
[2019-02-01] MEDS: LACTATED RINGERS 1,000 ML IV SCH ×4 (05:00→21:10)
[2019-02-01 05:53] LABS: Basophils # (Auto) 0 K/mcL (0.0-0.3); Basophils % (Auto) 0.5 % (0.0-2.0); Eosinophils # (Auto) 0.2 K/mcL (0.0-0.7); Eosinophils % (Auto) 4.3 % (0.0-7.0); Lymphocytes # (Auto) 1.2 K/mcL (1.5-4.8); Lymphocytes % (Auto) 21.9 % (15.5-49.0); Mean Cell Volume 83.3 fL (80.0-100.0); Monocytes # (Auto) 0.6 K/mcL (0.1-0.9); Monocytes % (Auto) 10.3 % (1.0-12.0); Platelet Count 251 K/mcL (140-440); RBC 3.43 M/mcL (4.00-5.20); Red Cell Distribution Width 17.2 % (11.5-14.5)
[2019-02-01 06:01] LABS: Blood Urea Nitrogen 5 mg/dl (6-20)
[2019-02-01 06:18] LABS: Ionized Calcium 0.75 mmol/L (1.16-1.32)
[2019-02-01] MEDS: INSULIN LISPRO 1 UNIT/0.01 ML UNIT SQ SCH ×4 (06:55→21:13)
[2019-02-01] MEDS: LEVOTHYROXINE 125 MCG TABLET PO SCH (08:00)
[2019-02-01] MEDS: predniSONE 20 MG TABLET PO SCH (08:04)
[2019-02-01] MEDS: LISINOPRIL 20 MG TABLET PO SCH (08:04)
[2019-02-01] MEDS: MAGNESIUM OXIDE 400 MG TABLET PO SCH (08:04)
[2019-02-01] MEDS: ENOXAPARIN 40 MG/0.4 ML SYRINGE SQ SCH (08:04)
[2019-02-01] MEDS: METOPROLOL SUCCINATE 50 MG TAB.XL.24H PO SCH (08:04)
[2019-02-01] MEDS: DULoxetine 30 MG CAPSULE PO SCH ×2 (08:04→21:11)
[2019-02-01] MEDS: CALCIUM CARBONATE 1,250 MG/5 ML ORAL.SUSP PO SCH (08:05)
[2019-02-01] MEDS: CYCLOBENZAPRINE 10 MG TABLET PO SCH ×3 (08:05→21:12)
[2019-02-01] MEDS: PROMETHAZINE 25 MG/ML VIAL IV PRN (08:13)
[2019-02-01] MEDS ORDERED: POTASSIUM CHLORIDE 40 MEQ in DEXTROSE 5% IN WATER 250 ML IV ONE (12:07)
[2019-02-01] MEDS ORDERED: MAGNESIUM SULFATE 24.36 MEQ in DEXTROSE 5% IN WATER 50 ML IV ONE (12:07)
--- NOTE | 2019-02-01 12:38 | General Surgery Progress Note ---
Subjective Narrative: Note initiated : 02/01/19 at 12:34 pm Service Date, if different from initiated Date: [] Patient: Dayanna Stephens 58 y/o F admitted on 01/29/19 for Abdominal Pain. Chief Complaint: [small bowel obstruction] . Overnight there have been no significant changes. The patient continues to complain of a headache. She is asking for oral medication for this. She does state that she has had some episodes of nausea and dry heaves with no production. This is secondary to the nasogastric tube. She has experienced this many times in the past. Her ileostomy continues to function well. It has been emptied and there has been gas and the appliance. She denies any fever or chills. Denies any blood in her stool. The repeat urinalysis was performed and it was clear, with no evidence of infection. I did ask her what she usually takes for her headaches and she stated she takes Tylenol and Aleve at the same time. I explained to her this was probably not the best way to manage a headache and that it would be better if she took Tylenol and 3-4 hours later took the Aleve. I explained I would be willing to do that for her here. But we will not give the medications at the same time. She states she understands. Objective Temp Pulse Resp BP Pulse Ox 98.4 F 106 H 18 134/82 95 02/01/19 06:55 02/01/19 06:55 02/01/19 06:55 02/01/19 06:55 02/01/19 06:55 - Additional Data Intake & Output - Last 24 hours: Intake & Output 01/30/19 01/31/19 02/01/19 02/02/19 05:59 05:59 05:59 05:59 Intake Total 2966 4306 2966 Output Total 3775 2830 2650 100 Balance -809 1476 316 -100 Weight 216 lb 8 oz 216 lb 8 oz 217 lb - General physical appearance no distress, obese, other (patient was up walking with assistance in the home while I was reviewing her chart) - Eyes normal ocular movement - ENT other (, nasogastric tube and left with no evidence of breakdown) - Neck trachea midline, no venous distension - Respiratory normal expansion, normal respiratory effort - Cardiovascular Cardiovascular exam: Present: tachycardia (. This is a persistent thing for the patient were her heart rate stays greater than 100) - Abdomen soft, tender ( in the left upper quadrant with no guarding and no rebound, no masses), bowel sounds, surgical scars (. Well-healed midline surgical scar and left sided colostomy takedown scar) - Neurologic normal coordination - Musculoskeletal normal gait - Psychiatric oriented to time, oriented to person, oriented to place, speech is normal - Labs 02/01/19 04:25 02/01/19 04:25 Diabetes panel 02/01/19 Range/Units 04:25 Sodium 139 (133-145) mmol/L Potassium 3.7 (3.3-5.1) mmol/L Chloride 94 L (96-108) mmol/L Carbon Dioxide 28 (22-30) mmol/L BUN 5 L (6-20) mg/dl Creatinine 0.5 L (0.6-1.1) mg/dl Glucose 109 H (70-105) mg/dL Calcium panel 02/01/19 02/01/19 Range/Units 04:25 04:25 Ionized Calcium Jeannie 0.75 L (1.16-1.32) mmol/L Phosphorus 3.8 (2.7-4.5) mg/dL Pituitary panel 02/01/19 Range/Units 04:25 Sodium 139 (133-145) mmol/L Potassium 3.7 (3.3-5.1) mmol/L Chloride 94 L (96-108) mmol/L Carbon Dioxide 28 (22-30) mmol/L BUN 5 L (6-20) mg/dl Creatinine 0.5 L (0.6-1.1) mg/dl Glucose 109 H (70-105) mg/dL Adrenal panel 02/01/19 Range/Units 04:25 Sodium 139 (133-145) mmol/L Potassium 3.7 (3.3-5.1) mmol/L Chloride 94 L (96-108) mmol/L Carbon Dioxide 28 (22-30) mmol/L BUN 5 L (6-20) mg/dl Creatinine 0.5 L (0.6-1.1) mg/dl Glucose 109 H (70-105) mg/dL Assessment and Plan (1) Small bowel obstruction Status: Acute Assessment and plan: 1) nasogastric tube removed. Explained to the patient that we will slowly advance her diet and that right now. She will have ice chips, water and juice. The nursing staff was in the room and understands that this is not a typical clear liquid diet. If the patient tolerates her diet well. Once again tomorrow. 2) hypokalemia and hypomagnesemia are corrected from yesterday but still low. Therefore, I will replace these again today. Laboratories will be checked again in the morning. 3) headache: I have written the patient for 650 mg of Tylenol every 6 hours alternating with 440 mg of Aleve every 6 hours. The intent would be for the patient to have 650 mg of Tylenol as the first dose and have 440 mg of Aleve available 3 hours later. The nursing staff was in the room when I explained t his. The patient understands she is not to take these medications at the same time, the way she does at home. I also explained to her that she should not do this at home. 4) I discussed with the patient that she needs to be out of bed and in the chair as much as possible. The patient admitted that she had not been out of bed in the chair at all yesterday. I explained to her that it is better for her back and it is better for pressure points and it is better for her bowel motility. The more she moves, even if it is simply between the bed in the chair. 5). The patient ambulated twice yesterday, which is very good that she should ambulate more, if it is possible. She was up ambulating. When I initially saw her this morning and was doing very well. I explained she needs to continue this as most responsible. 6). The urinalysis from yesterday was clear with no evidence of infection. 7). Patient blood glucose is been well controlled here in the hospital and although her hemoglobin A1c is greater than 6, it is not poorly controlled. Will continue to manage this patient as conservatively as possible. She has had 8 intra-abdominal surgical procedures in the last 2 years, including recent total colectomy with end ileostomy and she continues to have small bowel structures along with what appears to be some component of pseudoobstruction secondary to poorly functioning bowel peristalsis. If the patient shows any evidence of a complete obstruction or nonviable bowel, we'll be forced to take her to the operating room, but if I can avoid this, it is in her best interest to move slowly as possible. Current Visit: Yes - Time Spent With Patient Total time spent is greater than 50% in coordination of care (as documented) at patient's floor/unit and/or counseling patient: Greater than 35 minutes (this is a complex patient and she does require daily counseling. Some of this is because she is frustrated and anxious and some of it is because she needs to be reminded of the things that are actually good for trying to make the small bowel traction improve.)
[2019-02-01] MEDS: ACETAMINOPHEN 325 MG TABLET PO PRN (13:03)
[2019-02-01] MEDS: NAPROXEN 250 MG TABLET PO PRN (15:56)
[2019-02-01] MEDS: HYDROCODONE/APAP 7.5/325MG TABLET PO PRN (19:37)
[2019-02-02] MEDS: HYDROCODONE/APAP 7.5/325MG TABLET PO PRN ×3 (00:08→13:15)
[2019-02-02] MEDS: LACTATED RINGERS 1,000 ML IV SCH ×3 (01:49→11:31)
[2019-02-02] MEDS: HYDROmorphone 2 MG/ML VIAL IV PRN ×4 (01:55→13:48)
[2019-02-02] MEDS: LEVOTHYROXINE 125 MCG TABLET PO SCH (06:40)
[2019-02-02] MEDS: INSULIN LISPRO 1 UNIT/0.01 ML UNIT SQ SCH ×2 (06:43→13:14)
[2019-02-02] MEDS: CALCIUM CARBONATE 1,250 MG/5 ML ORAL.SUSP PO SCH (09:06)
[2019-02-02] MEDS: ENOXAPARIN 40 MG/0.4 ML SYRINGE SQ SCH (09:06)
[2019-02-02] MEDS: METOPROLOL SUCCINATE 50 MG TAB.XL.24H PO SCH (09:07)
[2019-02-02] MEDS: predniSONE 20 MG TABLET PO SCH (09:07)
[2019-02-02] MEDS: DULoxetine 30 MG CAPSULE PO SCH (09:07)
[2019-02-02] MEDS: LISINOPRIL 20 MG TABLET PO SCH (09:07)
[2019-02-02] MEDS: MAGNESIUM OXIDE 400 MG TABLET PO SCH (09:07)
[2019-02-02] MEDS: CYCLOBENZAPRINE 10 MG TABLET PO SCH ×2 (09:07→15:14)
[2019-02-02] MEDS: NAPROXEN 250 MG TABLET PO PRN ×2 (09:07→15:14)
--- NOTE | 2019-02-02 09:12 | XRay Report ---
HISTORY: Abdominal pain and recent small bowel obstruction FINDINGS: The stomach is largely decompressed. There are a few loops of mildly dilated small bowel in the mid abdomen with a few air-fluid levels. Small bowel is much less distended today than it was on 01/30/19. No free intra-abdominal air is present. The colon is decompressed. No mass is identified. IMPRESSION: Near complete resolution of previously seen small bowel obstruction Interpreted and Authenticated by: Zay Juarez 02/02/19
--- NOTE | 2019-02-02 12:59 | Discharge Summary ---
Providers - Providers Patient information: Note initiated : 02/02/19 at 12:53 pm Service Date, if different from initiated Date: [] Patient: Dayanna Stephens 58 y/o F admitted on 01/29/19 for Abdominal Pain. Chief Complaint: [] Date of admission: 01/29/19 Discharge date: 02/02/19 Attending physician: Dimitry Danielson Primary care physician: Douglas Haque Hospitalization Hospital course: The patient was admitted to the hospital on 29 January 2019 secondary to partial small bowel obstruction. She was admitted to the surgical service as she has had 8 intra-abdominal surgical procedures and as recently as last month. She had a total colectomy with end ileostomy done secondary to her frequent bowel obstructions and pseudoobstruction. She presented with nausea, emesis, abdominal distention and abdominal pain. A nasogastric tube was placed and she was placed on intermittent wall suction and followed for several days. She had hypomagnesemia and hypokalemia which were , corrected during hospitalization and over the period of several days, her nasogastric tube output decreased in the amount of effluent from her ileostomy, increased as well as having air. Her appliance. On 01 February 2019 nasogastric tube was removed and the patient was allowed liquids. She tolerated this well. On the day of discharge. Abdominal film was performed which demonstrated great improvement in the amount of gas and fluid in her small bowel. She is requesting to go home and be allowed. No procedures were performed during the admission and the patient was managed co nservatively with IV hydration, nothing by mouth, electrolyte placements as appropriate and ambulation. Discharge diagnosis: small bowel obstruction Exam Temp Pulse Resp BP Pulse Ox 97.8 F 95 H 18 120/75 93 02/02/19 12:00 02/02/19 12:00 02/02/19 12:00 02/02/19 12:02/02/19 12:00 - General physical appearance no distress, no pain, obese - Eyes normal ocular movement. negative: icteric - ENT normal pinna, normal nares, normal mucosa - Head Head exam IM: Present: atraumatic, normocephalic - Neck trachea midline, no venous distension - Cardiovascular Cardiovascular exam IM: Present: normal rate and rhythm, tachycardia (the patient is persistently had tachycardia but during the night when she sleeps. Her heart rate regular done at the , 80s) - Respiratory normal expansion, normal respiratory effort - Abdomen Abdomen: Present: soft, tender (around the surgical incision in the midline and the colostomy takedown site on the left), bowel sounds, surgical scars ( ostomy on the right is healthy and functioning, no evidence of breakdown or infection at the surgical incision sites) - Integumentary Present: other (. Patient is noted to have a minor rash bilateral forearms, but she states it does not) - Neurologic Present: normal coordination - Musculoskeletal Present: normal gait - Psychiatric Present: oriented to time, oriented to person, oriented to place, speech is normal Discharge Plan - Patient/Caregiver Discharge Instructions Discharge Summary: 1) patient may return to her normal activity as tolerated. 2) patient may advance her diet to her normal diet as tolerated, but as we discussed she should start this off slowly with some bland foods as she has not eaten in several days. She states she understands.. 3) There were no changes made to enter the patient's medications or additions to her medications. 4) patient understands that if she once again developed signs or symptoms of obstruction, she should return to the emergency department for evaluation. This patient fully understands the reason her best interest not to have surgery unless it is absolutely mandatory. Her small bowel obstructions and partial small bowel obstruction should be managed conservatively with IV hydration, strict nothing by mouth and correction of her electrolytes as often as possible. Activity: increase activity as tolerated Diet: Regular Diet (see discharge instructions, patient should advance her diet as tolerated) - Follow up Plan Follow up with: Douglas Haque MD [Primary Care Provider] - (Call the office to set up a hospital follow up in 7-10 days.) Bertha Currie MD [Physician] - (follow up as previously directed with Dr. Currie after colectomy) Disposition: Home, Self-Care Prognosis: Fair Rehab Potential: Fair I certify that the patient requires SNF services.: No Overall status at discharge: patient is progressing back to baseline Pending Studies Resuscitation Status Full Code Diet Clear Liquid Diet Start Sun Feb 01 1229 Acetaminophen (Tylenol) 650 mg PO Q6HP PRN PRN Reason: Headache Last Admin: 02/01/19 13:03 Dose: 650 mg Documented by: NSTOVER Hydrocodone Bitart/Acetaminophen ([place] 7.5/325mg) 1 tab PO Q6HP PRN PRN Reason: PAIN LEVEL 3-6 Last Admin: 02/02/19 06:41 Dose: 1 tab Documented by: Admin: 02/02/19 00:08 Dose: 1 tab Documented by: Admin: 02/01/19 19:37 Dose: 1 tab Documented by: Admin: 01/31/19 15:21 Dose: 1 tab Documented by: Admin: 01/31/19 08:22 Dose: 1 tab Documented by: Admin: 01/30/19 17:51 Dose: 1 tab Documented by: Admin: 01/30/19 09:40 Dose: 1 tab Documented by: VALERIA Benzocaine (Cetacaine) 1 spray TOPICAL PRN PRN PRN Reason: throat pain Last Admin: 01/31/19 20:32 Dose: 1 spray Documented by: Admin: 01/31/19 00:00 Dose: 1 spray Documented by: Admin: 01/30/19 13:00 Dose: 1 spray Documented by: Admin: 01/30/19 10:07 Dose: 1 spray Documented by: Admin: 01/30/19 05:24 Dose: 1 spray Documented by: Admin: 01/30/19 02:56 Dose: 1 spray Documented by: [email or web address] Calcium Carbonate/Glycine (Calcium Carbonate) 1,250 mg PO DAILY [facility] Last Admin: 02/02/19 09:06 Dose: 1,250 mg Documented by: Admin: 02/01/19 08:05 Dose: 1,250 mg Documented by: Admin: 01/31/19 08:30 Dose: 1,250 mg Documented by: Admin: 01/30/19 09:31 Dose: 1,250 mg Documented by: VALERIA Cyclobenzaprine HCl (Flexeril) 10 mg PO TID [facility] Last Admin: 02/02/19 09:07 Dose: 10 mg Documented by: Admin: 02/01/19 21:12 Dose: Not Given Documented by: Admin: 02/01/19 13:37 Dose: Not Given Documented by: Admin: 02/01/19 08:05 Dose: Not Given Documented by: Admin: 01/31/19 20:38 Dose: 10 mg Documented by: Admin: 01/31/19 14:23 Dose: Not Given Documented by: Admin: 01/31/19 08:23 Dose: 10 mg Documented by: Admin: 01/30/19 21:24 Dose: Not Given Documented by: Admin: 01/30/19 15:40 Dose: Not Given Documented by: [email or web address] Admin: 01/30/19 09:32 Dose: 10 mg Documented by: [email or web address] Admin: 01/29/19 20:06 Dose: Not Given Documented by: Admin: 01/29/19 14:59 Dose: Not Given Documented by: ASMNajma Diagnostic Test (Pha) (Accu-Chek) 1 each FS ACHS MALENA Last Admin: 02/02/19 06:43 Dose: 1 each Documented by: [email or web address] Admin: 02/01/19 21:12 Dose: 1 each Documented by: Admin: 02/01/19 17:04 Dose: 1 each Documented by: Admin: 02/01/19 11:51 Dose: 1 each Documented by: Admin: 02/01/19 06:51 Dose: 1 each Documented by: Admin: 01/31/19 20:30 Dose: 1 each Documented by: Admin: 01/31/19 16:57 Dose: 1 each Documented by: Admin: 01/31/19 11:10 Dose: 1 each Documented by: Admin: 01/31/19 07:21 Dose: 1 each Documented by: Admin: 01/30/19 23:16 Dose: 1 each Documented by: Admin: 01/30/19 21:33 Dose: 1 each Documented by: Admin: 01/30/19 17:39 Dose: 1 each Documented by: Admin: 01/30/19 12:15 Dose: 1 each Documented by: [email or web address] Admin: 01/30/19 07:27 Dose: 1 each Documented by: [email or web address] Admin: 01/29/19 21:25 Dose: 1 each Documented by: Admin: 01/29/19 17:20 Dose: 1 each Documented by: [email or web address] Admin: 01/29/19 12:07 Dose: 1 each Documented by: [email or web address] Duloxetine HCl (Cymbalta) 30 mg PO BID [facility] Last Admin: 02/02/19 09:07 Dose: 30 mg Documented by: Admin: 02/01/19 21:11 Dose: 30 mg Documented by: Admin: 02/01/19 08:04 Dose: 30 mg Documented by: Admin: 01/31/19 20:38 Dose: 30 mg Documented by: Admin: 01/31/19 08:23 Dose: 30 mg Documented by: Admin: 01/30/19 21:30 Dose: 30 mg Documented by: Admin: 01/30/19 09:32 Dose: 30 mg Documented by: Admin: 01/29/19 20:06 Dose: Not Given Documented by: [email or web address] Enoxaparin Sodium (Lovenox) 40 mg SQ DAILY [facility] Last Admin: 02/02/19 09:06 Dose: 40 mg Documented by: Admin: 02/01/19 08:04 Dose: 40 mg Documented by: Admin: 01/31/19 08:24 Dose: 40 mg Documented by: Admin: 01/30/19 09:32 Dose: 40 mg Documented by: VALERIA Hydromorphone HCl (Dilaudid) 0.5 mg IV Q1-2HP PRN PRN Reason: PAIN LEVEL > 6 Last Admin: 02/02/19 11:24 Dose: 0.5 mg Documented by: Admin: 02/02/19 09:06 Dose: 0.5 mg Documented by: Admin: 02/02/19 01:55 Dose: 0.5 mg Documented by: Admin: 02/01/19 21:19 Dose: 0.5 mg Documented by: Admin: 02/01/19 17:38 Dose: 0.5 mg Documented by: Admin: 02/01/19 14:36 Dose: 0.5 mg Documented by: Admin: 02/01/19 08:04 Dose: 0.5 mg Documented by: Admin: 02/01/19 04:04 Dose: 0.5 mg Documented by: Admin: 02/01/19 00:40 Dose: 0.5 mg Documented by: Admin: 01/31/19 20:38 Dose: 0.5 mg Documented by: Admin: 01/31/19 17:29 Dose: 0.5 mg Documented by: Admin: 01/31/19 14:21 Dose: 0.5 mg Documented by: Admin: 01/31/19 11:12 Dose: 0.5 mg Documented by: Admin: 01/31/19 05:29 Dose: 0.5 mg Documented by: [email or web address] Admin: 01/31/19 02:29 Dose: 0.5 mg Documented by: Admin: 01/30/19 23:49 Dose: 0.5 mg Documented by: Admin: 01/30/19 21:29 Dose: 0.5 mg Documented by: Admin: 01/30/19 17:52 Dose: 0.5 mg Documented by: [email or web address] Admin: 01/30/19 15:38 Dose: 0.5 mg Documented by: [email or web address] Admin: 01/30/19 12:57 Dose: 0.5 mg Documented by: [email or web address] Admin: 01/30/19 10:06 Dose: 0.5 mg Documented by: [email or web address] Admin: 01/30/19 07:41 Dose: 0.5 mg Documented by: [email or web address] Admin: 01/30/19 05:23 Dose: 0.5 mg Documented by: Admin: 01/30/19 02:55 Dose: 0.5 mg Documented by: Admin: 01/30/19 00:34 Dose: 0.5 mg Documented by: Admin: 01/29/19 21:32 Dose: 0.5 mg Documented by: Admin: 01/29/19 19:35 Dose: 0.5 mg Documented by: Admin: 01/29/19 17:35 Dose: 0.5 mg Documented by: [email or web address] Admin: 01/29/19 14:58 Dose: 0.5 mg Documented by: [email or web address] Admin: 01/29/19 11:38 Dose: 0.5 mg Documented by: [email or web address] Admin: 01/29/19 08:57 Dose: 0.5 mg Documented by: [email or web address] Admin: 01/29/19 05:35 Dose: 0.5 mg Documented by: [email or web address] Lactated Ringer's (Lactated Ringers) 1,000 mls @ 125 mls/hr IV .Q8H MALENA Last Admin: 02/02/19 11:31 Dose: Not Given Documented by: [email or web address] Admin: 02/02/19 04:48 Dose: 125 mls/hr Documented by: Infusion: 02/02/19 04:48 Dose: 125 mls/hr Documented by: Admin: 02/02/19 01:49 Dose: Not Given Documented by: Admin: 02/01/19 21:10 Dose: 125 mls/hr Documented by: Admin: 02/01/19 18:31 Dose: Not Given Documented by: Admin: 02/01/19 13:04 Dose: Not Given Documented by: Infusion: 02/01/19 13:00 Dose: 125 mls/hr Documented by: Admin: 02/01/19 05:00 Dose: 125 mls/hr Documented by: Infusion: 02/01/19 00:30 Dose: 125 mls/hr Documented by: Admin: 01/31/19 16:30 Dose: 125 mls/hr Documented by: [email or web address] Infusion: 01/31/19 16:30 Dose: 0 mls/hr Documented by: [email or web address] Admin: 01/31/19 09:55 Dose: Not Given Documented by: Admin: 01/31/19 05:29 Dose: 125 mls/hr Documented by: Infusion: 01/31/19 05:22 Dose: 125 mls/hr Documented by: Admin: 01/30/19 21:22 Dose: 125 mls/hr Documented by: Infusion: 01/30/19 20:46 Dose: 125 mls/hr Documented by: Admin: 01/30/19 19:28 Dose: Not Given Documented by: Admin: 01/30/19 12:46 Dose: 125 mls/hr Documented by: [email or web address] Infusion: 01/30/19 12:46 Dose: 0 mls/hr Documented by: [email or web address] Infusion: 01/30/19 06:25 Dose: 125 mls/hr Documented by: [email or web address] Infusion: 01/30/19 06:05 Dose: 0 mls/hr Documented by: Admin: 01/30/19 02:55 Dose: 125 mls/hr Documented by: Infusion: 01/30/19 02:55 Dose: 125 mls/hr Documented by: Admin: 01/29/19 19:35 Dose: 125 mls/hr Documented by: Infusion: 01/29/19 19:35 Dose: 125 mls/hr Documented by: Admin: 01/29/19 11:38 Dose: 125 mls/hr Documented by: ASMNajma Insulin Human Lispro (Humalog) 0 unit SQ [facility]; Protocol Last Admin: 02/02/19 06:43 Dose: Not Given Documented by: Admin: 02/01/19 21:13 Dose: Not Given Documented by: Admin: 02/01/19 17:06 Dose: Not Given Documented by: CLAUDETOROCIO Admin: 02/01/19 11:52 Dose: Not Given Documented by: Admin: 02/01/19 06:55 Dose: Not Given Documented by: CLAUDETOROCIO Admin: 01/31/19 20:32 Dose: Not Given Documented by: Admin: 01/31/19 17:01 Dose: Not Given Documented by: Admin: 01/31/19 11:11 Dose: Not Given Documented by: Admin: 01/31/19 08:22 Dose: Not Given Documented by: Admin: 01/30/19 21:35 Dose: Not Given Documented by: Admin: 01/30/19 17:39 Dose: 4 unit Documented by: [email or web address] Admin: 01/30/19 12:15 Dose: Not Given Documented by: [email or web address] Admin: 01/30/19 07:28 Dose: Not Given Documented by: [email or web address] Admin: 01/29/19 21:26 Dose: Not Given Documented by: Admin: 01/29/19 17:21 Dose: Not Given Documented by: [email or web address] Admin: 01/29/19 12:14 Dose: 2 unit Documented by: [email or web address] [facility]othyroxine S[facility] ([facility]throid) [facility] Last Admin: 02/02/19 06:40 Dose: 250 mcg Documented by: [email or web address] Admin: 02/01/19 08:00 Dose: 250 mcg Documented by: Admin: 01/31/19 08:23 Dose: 250 mcg Documented by: Admin: 01/30/19 07:08 Dose: Not Given Documented by: VALERIA Lisinopril (Zestril) 20 mg PO DAILY [facility] Last Admin: 02/02/19 09:07 Dose: 20 mg Documented by: Admin: 02/01/19 08:04 Dose: 20 mg Documented by: Admin: 01/31/19 08:23 Dose: 20 mg Documented by: Admin: 01/30/19 09:32 Dose: 20 mg Documented by: VALERIA Magnesium Oxide (Magnesium Oxide) 400 mg PO DAILY [facility] Last Admin: 02/02/19 09:07 Dose: 400 mg Documented by: Admin: 02/01/19 08:04 Dose: 400 mg Documented by: Admin: 01/31/19 08:25 Dose: 400 mg Documented by: Admin: 01/30/19 09:32 Dose: 400 mg Documented by: VALERIA Metoprolol Succinate (Toprol Xl) 50 mg PO DAILY [facility] Last Admin: 02/02/19 09:07 Dose: 50 mg Documented by: Admin: 02/01/19 08:04 Dose: 50 mg Documented by: Admin: 01/31/19 08:23 Dose: 50 mg Documented by: Admin: 01/30/19 09:32 Dose: 50 mg Documented by: VALERIA Naproxen (Naprosyn) 500 mg PO Q6HP PRN PRN Reason: Headache Last Admin: 02/02/19 09:07 Dose: 500 mg Documented by: Admin: 02/01/19 15:56 Dose: 500 mg Documented by: DIONICIO Ondansetron HCl (Zofran) 4 mg IV Q4HP PRN PRN Reason: Nausea And Vomiting Last Admin: 01/31/19 04:26 Dose: 4 mg Documented by: Admin: 01/29/19 19:35 Dose: 4 mg Documented by: Admin: 01/29/19 05:36 Dose: 4 mg Documented by: JOSE Prednisone (Prednisone) 20 mg PO [facility] Last Admin: 02/02/19 09:07 Dose: 20 mg Documented by: [email or web address] Admin: 02/01/19 08:04 Dose: 20 mg Documented by: Admin: 01/31/19 08:23 Dose: 20 mg Documented by: Admin: 01/30/19 07:09 Dose: Not Given Documented by: VALERIA Promethazine HCl (Phenergan) 12.5 mg IV Q6HP PRN PRN Reason: Nausea And Vomiting Last Admin: 02/01/19 08:13 Dose: 12.5 mg Documented by: Admin: 01/31/19 20:47 Dose: 12.5 mg Documented by: Admin: 01/31/19 07:21 Dose: 12.5 mg Documented by: Admin: 01/30/19 23:50 Dose: 12.5 mg Documented by: Admin: 01/30/19 15:38 Dose: 12.5 mg Documented by: Admin: 01/30/19 07:41 Dose: 12.5 mg Documented by: Admin: 01/30/19 00:23 Dose: 12.5 mg Documented by: Admin: 01/29/19 17:18 Dose: 12.5 mg Documented by: Admin: 01/29/19 11:36 Dose: 12.5 mg Documented by: VALERIA Shift Summary 02/02/19 04:34 Shift Summary by Saida Cohen Pt A&O x4. Pt can have Acetaminophen 650mg Q6HP and Naproxen 500mg Q6HP for her headache. Must have 3hrs between medications. Pt on restricted clear fluids (wa ter, ice chips, popsicles, and juice) per the MD, Order states clear liquid diet. Pt received Dilaudid x2 and [place] x2 (will medicate with norco for a 3rd time prior to shift change) Port to L upper chest infusing LR at 125ml/hr. Up with SBA to bathroom. Pt ambulated halls x2 with RN. wants her to be sitting in the chair more than in bed. Pt in chair for 40 min this shift. Will update with verbal report. Initialized on 02/02/19 04:34 - END OF NOTE
[2019-02-02 14:08] LABS: ALT/SGPT 13 U/l (0-40); Albumin 2.8 gm/dL (3.2-5.2); Albumin/Globulin Ratio 0.9 (1.0-2.3); Alkaline Phosphatase 79 U/L (39-117); Blood Urea Nitrogen 3 mg/dl (6-20)
[2019-02-02] MEDS ORDERED: HEPARIN SODIUM,PORCINE/PF 500 UNIT/5 ML SYRINGE IV ONE (14:35)
[2019-02-02] MEDS: ACETAMINOPHEN 325 MG TABLET PO PRN (15:14)
== END 2019-02-02 17:30 | disposition home or self-care (01) | DRG 389 ==
LOC: ED 00:57 → MEDSUR 04:42
PROVIDERS: ADMIT Surgery

== ENCOUNTER 2019-02-11 02:45 | Inpatient (IN) ==
[2019-02-11] MEDS ORDERED: IOPAMIDOL 100 ML BOTTLE IV ONE (02:46)
[2019-02-11] MEDS ORDERED: PROMETHAZINE 25 MG/ML VIAL IV ONE ×2 (02:57→08:39)
[2019-02-11] MEDS: HYDROmorphone 2 MG/ML VIAL IV PRN ×4 (03:18→08:46)
[2019-02-11 03:55] LABS: Basophils # (Auto) 0 K/mcL (0.0-0.3); Basophils % (Auto) 0.3 % (0.0-2.0); Eosinophils # (Auto) 0.1 K/mcL (0.0-0.7); Granulocytes % (Auto) 60.8 % (38.0-78.0); Lymphocytes # (Auto) 3.2 K/mcL (1.5-4.8); Lymphocytes % (Auto) 28.4 % (15.5-49.0); Mean Cell Volume 85.6 fL (80.0-100.0); Mean Corpuscular HGB Conc 31.4 g/dL (31.0-36.0); Monocytes # (Auto) 1.1 K/mcL (0.1-0.9); Monocytes % (Auto) 9.5 % (1.0-12.0); Platelet Count 421 K/mcL (140-440); Red Cell Distribution Width 18.7 % (11.5-14.5)
[2019-02-11 04:46] LABS: ALT/SGPT 17 U/l (0-40); Albumin 3.7 gm/dL (3.2-5.2); Albumin/Globulin Ratio 1.1 (1.0-2.3); Alkaline Phosphatase 88 U/L (39-117); Blood Urea Nitrogen 15 mg/dl (6-20)
--- NOTE | 2019-02-11 05:48 | Cat Scan Report ---
CLINICAL INFORMATION: History of previous total colectomy. Recurrent mechanical small bowel obstruction and abdominal distention COMPARISON: Multiple previous plain film examinations and CT scans. Previous CT scan is dated 01/29/2019. Previous plain film studies are dated 01/30/2019 and 02/02/2019. TECHNIQUE: Axial images were obtained through the abdomen and pelvis. Sagittally and coronally reformatted images. 80 mL contrast material injected intravenously. Oral contrast material was not administered FINDINGS: Patient has undergone previous total colectomy. There is a right lower quadrant ileostomy. There is dilated small bowel, there is similar in appearance to prior examination. There is a poorly defined transition point in the pelvis, midline. Appearance is consistent with recurrent small bowel obstruction and is almost identical to 01/29/2019. There is bowel adherent or adjacent to the anterior abdominal wall in the pelvis. There is a site of surgical incision. There is a small fluid collection systems with seroma. This is essentially unchanged. This measures approximately 3 cm in cross-sectional diameter. There is no closed-loop obstruction. No intra-abdominal abscess. There is no significant free fluid. There is no pneumoperitoneum or pneumatosis. Lung bases are negative. No parenchymal infiltrate. No pleural fluid or pericardial fluid. Liver is negative. No focal intrahepatic abnormality. Liver contour is smooth. There is no ascites. There are surgical clips in the gallbladder fossa. Spleen is negative. No splenomegaly. Pancreas is negative. No pancreatic mass. No peripancreatic abnormality. Adrenal glands are negative. Kidneys are negative. No hydronephrosis. Examination was initially interpreted by [facility] IMPRESSION: 1. Recurrent mechanical small bowel obstruction. Appearance is essentially identical to 01/29/2019 2. Small postoperative seroma in the anterior abdominal wall is unchanged The exam was performed using radiation dose optimization techniques including, but not limited to, automated exposure control, adjustment of the mA and/or kV according to patient size and use of iterative reconstruction technique. Interpreted and Authenticated by: All Cormier 02/11/19
[2019-02-11] MEDS ORDERED: LACTATED RINGERS 1,000 ML IV ONE (07:04)
--- NOTE | 2019-02-11 07:06 | Emergency Department Note ---
Abdominal Pain HPI - General Chief Complaint: Abdominal Pain Stated Complaint: Another Small Bowel Obstruction Time Seen by Provider: 02/11/19 03:39 Mode of arrival: wheelchair - History of Present Illness HPI Narrative: This patient has had some abdominal pain nausea and vomiting for the last few hours. She was admitted 13 days ago the mechanical small bowel obstruction and improved but now has recurrent symptoms. - Related Data Home Medications Medication Instructions Recorded Confirmed DULoxetine [Cymbalta] 30 mg PO BID 11/30/16 01/29/19 Levothyroxine [Synthroid] 250 mcg PO QAMAC 08/20/17 01/29/19 Polyethylene Glycol 3350 [Miralax] 17 gm PO BID 09/18/17 01/29/19 Bisacodyl [Dulcolax] 10 mg [place] DAILYP PRN 01/15/19 01/29/19 Na Phos,M-B/Na Phos,Di-Ba [Fleets 1 dose [place] DAILYP PRN 01/15/19 01/29/19 Adult] Polyethylene Glycol 3350 [Miralax] 17 gm PO DAILYP PRN 01/15/19 01/29/19 Previous Rx's Medication Instructions Recorded predniSONE [Prednisone] 20 mg PO [facility] #4 tab 05/18/16 metFORMIN HCL [Metformin HCl] 500 mg PO DAILY #30 tab 10/17/18 Cyclobenzaprine [Flexeril] 10 mg PO TID #30 tab 01/12/19 Calcium Carbonate 1,250 mg PO DAILY #50 oral.susp 01/18/19 Lisinopril [Zestril] 20 mg PO DAILY #20 tab 01/18/19 Magnesium Oxide 400 mg PO DAILY #10 tab 01/18/19 Metoprolol Succinate [Toprol Xl] 50 mg PO DAILY #30 tab.xl.24h 01/18/19 oxyCODONE/APAP [Percocet 5-325 mg] 2 tab PO Q4H PRN #30 tab 01/19/19 Allergies Allergy/AdvReac Type Severity Reaction Status Date / Time Sulfa (Sulfonamide Allergy Severe Anaphylaxis Verified 01/29/19 04:57 Antibiotics) adhesive tape AdvReac Mild Blister Verified 01/29/19 04:57 metoclopramide [From Reglan] AdvReac Mild Anxiety Verified 01/29/19 04:57 steri strips Allergy Severe Blister Uncoded 01/22/19 10:41 Review of Systems All systems ED: reviewed and negative except as stated. Abdominal Pain PMH - Past Medical History Medical history: Reports: COPD, hypertension, hypothyroidism, other (Myasthenia gravis). Denies: DVT, pulmonary embolus Psychiatric history: Reports: anxiety, depression [employer] history: Reports: non-contributory Family history: Reports: other - Social History Smoking status: Never smoker Alcohol use: Reports: None Drug use: Reports: none. Denies: marijuana Physical Exam Limitations: no limitations General appearance: alert Head: atraumatic Eye: Present: normal appearance ENT: normal exam Neck: Present: normal inspection Chest: Present: normal inspection Respiratory: Present: normal lung sounds bilaterally Cardiovascular: Present: regular rate, normal rhythm, normal heart sounds Abdominal: Present: soft, tenderness, hyperactive bowel sounds. Absent: distention, guarding, rebound Neurological: Present: alert Psychiatric: Present: normal affect Skin: Present: warm, dry Course Vital Signs Temperature 98.6 F 02/11/19 02:46 Pulse Rate 130 H 02/11/19 02:46 Respiratory Rate 20 02/11/19 02:46 Blood Pressure 162/107 02/11/19 02:46 Pulse Oximetry (%) 97 02/11/19 02:46 Temperature 98.6 F 02/11/19 02:46 Pulse Rate 112 H 02/11/19 08:01 Respiratory Rate 20 02/11/19 02:46 Blood Pressure 116/68 02/11/19 08:17 Pulse Oximetry (%) 98 02/11/19 08:01 Abdominal Pain - MDM Narrative Medical decision making narrative: Patient does have recurrence of her's mechanical small bowel obstruction on CT. Dr. Currie was in surgery. A message was given to him and he gave us permission to go ahead and admit the patient to the hospital for him. - Lab Data Lab results reviewed: Yes I reviewed the patient's lab results. Result diagrams: 02/11/19 03:05 02/11/19 03:05 Lab Results 02/11/19 02/11/19 02/11/19 Range/Units 03:05 03:05 03:05 WBC 11.2 H (4.5-11.0) K/mcL RBC 4.50 (4.00-5.20) M/mcL Hgb 12.1 (12.0-15.0) g/dL Hct 38.5 (36.0-48.0) % POC Hct 39.0 (36.0-48.0) % MCV 85.6 (80.0-100.0) fL MCH 26.9 (26.0-34.0) pg MCHC 31.4 (31.0-36.0) g/dL RDW 18.7 H (11.5-14.5) % Plt Count 421 (140-440) K/mcL MPV 7.9 (7.4-10.4) fL Gran % 60.8 (38.0-78.0) % Lymph % (Auto) 28.4 (15.5-49.0) % Dundy % (Auto) 9.5 (1.0-12.0) % Eos % (Auto) 1.0 (0.0-7.0) % Baso % (Auto) 0.3 (0.0-2.0) % Gran # 6.8 (1.8-8.0) K/mcL Lymph # (Auto) 3.2 (1.5-4.8) K/mcL Dundy # (Auto) 1.1 H (0.1-0.9) K/mcL Eos # (Auto) 0.1 (0.0-0.7) K/mcL Baso # (Auto) 0 (0.0-0.3) K/mcL POC Sodium 138 (133-145) mmol/L Sodium 139 (133-145) mmol/L POC Potassium 4.5 (3.3-5.1) mmol/L Potassium 4.5 (3.3-5.1) mmol/L POC Chloride 101 (96-108) mmol/L Chloride 96 (96-108) mmol/L Carbon Dioxide 25 (22-30) mmol/L POC Total CO2 27 (22-30) mmol/L Anion Gap 18.0 H (8-16) POC BUN 17 (6-20) mg/dl BUN 15 (6-20) mg/dl Creatinine 0.8 (0.6-1.1) mg/dl POC Creatinine 0.8 (0.6-1.1) mg/dl GFR Calculation 82 Glucose 176 H (70-105) mg/dL POC Glucose 179 H (70-105) mg/dL Calcium 8.6 (8.6-10.4) mg/dl POC WB Ioniz Calcium 0.97 L (1.16-1.32) mmol/L Total Bilirubin 0.2 (0.0-1.0) mg/dL AST 13 (0-37) U/l ALT 17 (0-40) U/l Alkaline Phosphatase 88 (39-117) U/L Total Protein 7.2 (5.9-8.4) gm/dL Albumin 3.7 (3.2-5.2) gm/dL Globulin 3.5 (2.2-3.7) gm/dL Albumin/Globulin Ratio 1.1 (1.0-2.3) - Radiology Data Radiology results reviewed: Yes I reviewed the patient's radiology results. Disposition Pt seen by TIP SCOURER/PA only: No Clinical Impression: Small bowel obstruction Disposition: Xfer As Inpt ([facility]) Condition: Fair Referrals: Douglas Haque MD [Primary Care Provider] - Time of Disposition: 08:44
[2019-02-11] MEDS ORDERED: PROMETHAZINE 25 MG TABLET PO PRN (11:36)
[2019-02-11] MEDS: CYCLOBENZAPRINE 10 MG TABLET PO PRN ×2 (13:00→22:38)
[2019-02-11] MEDS: ERYTHROMYCIN BASE 250 MG TABLET PO SCH ×3 (13:00→20:20)
[2019-02-11] MEDS: fentaNYL 100 MCG/2 ML VIAL IV PRN ×3 (13:01→19:46)
[2019-02-11] MEDS: PROMETHAZINE 25 MG/ML VIAL IV PRN ×2 (13:01→17:10)
[2019-02-11] MEDS: oxyCODONE HCL 5 MG TABLET PO PRN ×3 (13:17→22:37)
[2019-02-11] MEDS: 0.9 % SODIUM CHLORIDE 1,000 ML IV SCH ×2 (13:19→19:35)
--- NOTE | 2019-02-11 14:35 | General Surg History&Physical ---
History of Present Illness Patient information: Note initiated : 02/11/19 at 2:32 pm Service Date, if different from initiated Date: [] Patient: Dayanna Stephens a 58 y/o F admitted on 02/11/19 for Another Small Bowel Obstruction. Chief Complaint: [] HPI: Ms. Stephens is a 58 year old F admitted with suspected adynamic ileus. The patient was recently admitted to the hospital with suspected small bowel obstruction. She was treated nonoperatively and defervesced and had good bowel movements prior to discharge. She was tolerating a full diet at that time. Over the past 12 hours she has had crampy abdominal pain with nausea and vomiting. She returned to the emergency room where was noted that she had dilat ed loops of small bowel with questionable transition point in the pelvis. The patient started having bowel movements while in the Emergency room and has continued to have liquid bowel movements. She does have some nausea with vomiting. Review of her medications suggest that she may not have been taking her erythromycin and Mestinon as prescribed. I discussed this with her. She does not need nasogastric decompression. At this time. She is started on all of her home medications and will be given IV fluids. I anticipate that her diet can be advanced over 2 days and she can be discharged home. Review of Systems - Constitutional fatigue, lethargy, malaise, weakness, weight loss - EENT Nose, mouth and throat: dizziness, headache(s), vertigo - Cardiovascular dyspnea on exertion, palpatations, rapid heart rate, no chest pain with activity, no syncope - Respiratory no cough, no dyspnea on exertion, no wheezing, no pain on inspirtation, no pain with cough - Gastrointestinal abdominal pain, belching, bloating, change in bowel habits, change in stool character, constipation, cramping, early satiety, excessive flatus, loose stools, nausea, vomiting - Genitourinary Genitourinary: no dysuria, no nocturia, no urinary frequency, no urinary hesitancy, no urinary incontinence, no urinary urgency - Musculoskeletal arthralgias, back pain, myalgias, tingling, no numbness, no stiffness - Integumentary no dry skin, no photosensitivity, no pruritus, no rash, no sores, no striae, no wounds - Neurological no abnormal hearing, no behavioral changes, no convulsions, no disequilibrium, no frequent falls, no memory loss, no syncope, no tremor(s), no weakness - Psychiatric abnormal sleep pattern, depression, irritability, no anxiety, no hallucinations, no memory loss, no panic attacks, no tactile - Endocrine no change in libido, no excessive sweating, no palpitations, no polydipsia, no polyphagia, no polyuria - Hematologic/Lymphatic no easy bleeding, no easy bruising, no lymphadenopathy - Allergic/Immunologic no tongue swelling, no throat swelling, no uticaria, no wheezing, no lip swelling Past History Past medical history: Chronic intestinal pseudoobstruction. Small bowel obstruction due to adhesions. Mental confusion related to medication. Hyper calcium via with motor weakness, treated, resolved. Situational depression. Myasthenia gravis. Multiple intestinal obstructions due to adhesions. History of parastomal hernia. History of lower abdominal dehiscence Past surgical history: Sigmoid colectomy with colostomy. I, exploratory laparotomy with adhesiolysis 4. Exploratory laparotomy with repair of parastomal hernia. Exploratory laparotomy with repair of lower abdominal wall dehiscence. Bakers tube Plication of small bowel. Total colectomy with ileostomy Past social history: Former tobacco use. Prior history of marijuana use Denies alcohol use. Physically disabled Medications and Allergies Home Medications Medication Instructions Recorded Confirmed Type predniSONE [Prednisone] 20 mg PO [facility] #4 tab 05/18/16 02/11/19 Rx DULoxetine [Cymbalta] 30 mg PO BID 11/30/16 02/11/19 History Levothyroxine [Synthroid] 250 mcg PO QAMAC 08/20/17 02/11/19 History Polyethylene Glycol 3350 [Miralax] 17 gm PO BID 09/18/17 02/11/19 History metFORMIN HCL [Metformin HCl] 500 mg PO DAILY #30 tab 10/17/18 02/11/19 Rx Bisacodyl [Dulcolax] 10 mg [place] DAILYP PRN 01/15/19 02/11/19 History Na Phos,M-B/Na Phos,Di-Ba [Fleets 1 dose [place] DAILYP PRN 01/15/19 02/11/19 History Adult] Polyethylene Glycol 3350 [Miralax] 17 gm PO DAILYP PRN 01/15/19 02/11/19 History Calcium Carbonate 1,250 mg PO DAILY #50 oral.susp 01/18/19 02/11/19 Rx Lisinopril [Zestril] 20 mg PO DAILY #20 tab 01/18/19 02/11/19 Rx Magnesium Oxide 400 mg PO DAILY #10 tab 01/18/19 02/11/19 Rx Acetaminophen W/Codeine #3 1 - 2 tab PO Q4-6HP PRN 02/11/19 02/11/19 History Calcitriol [Rocaltrol] 0.25 mcg PO TID 02/11/19 02/11/19 History Cyclobenzaprine [Flexeril] 10 mg PO TIDP PRN 02/11/19 02/11/19 History Erythromycin Base [Erythromycin] 250 mg PO QID 02/11/19 02/11/19 History Metoprolol Succinate [Toprol Xl] 50 mg PO DAILY 02/11/19 02/11/19 History Omeprazole [PriLOSEC] 20 mg PO BID 02/11/19 02/11/19 History Promethazine [Phenergan] 25 mg PO Q6HP PRN 02/11/19 02/11/19 History Pyridostigmine [Mestinon] 60 mg PO BID 02/11/19 02/11/19 History Allergies Allergy/AdvReac Type Severity Reaction Status Date / Time Sulfa (Sulfonamide Allergy Severe Anaphylaxis Verified 01/29/19 04:57 Antibiotics) adhesive tape AdvReac Mild Blister Verified 01/29/19 04:57 metoclopramide [From Reglan] AdvReac Mild Anxiety Verified 01/29/19 04:57 steri strips Allergy Severe Blister Uncoded 01/22/19 10:41 Exam Temp Pulse Resp BP Pulse Ox 97.8 F 131 H 16 120/70 94 02/11/19 12:00 02/11/19 12:00 02/11/19 12:00 02/11/19 12:00 02/11/19 12:00 - General physical appearance well developed, well nourished, no distress, moderate pain (alcohol), chronically ill - Eyes PERRL, normal ocular movement - ENT normal pinna, normal nares, normal mucosa, no hearing loss, no congestion - Head Head exam IM: Present: atraumatic, normocephalic - Neck no masses, no bruits, trachea midline, no lymphadenopathy, no venous distension - Cardiovascular Cardiovascular exam IM: Present: normal rate and rhythm, RRR, +S1, tachycardia. Absent: JVD - Respiratory normal expansion, normal respiratory effort, clear to auscultation - Abdomen Abdomen: Present: soft, non tender, tender (no abdominal tenderness; active bowel sounds; incision looks good without hernia; stoma looks good and is healthy), bowel sounds Hernia: Present: none - Genitourinary Present: normal external genitalia - Integumentary Present: no rash, no growths, no abnormal pigmentation - Neurologic Present: normal coordination, normal sensation - Musculoskeletal Present: normal gait, normal posture - Psychiatric Present: oriented to time, oriented to person, oriented to place, speech is normal, memory intact Assessment and Plan (1) Chronic intestinal pseudo-obstruction Status: Acute (2) Chronic use of steroids Status: Chronic Comment: for myasthenia gravis; 10+ years (3) Diabetes mellitus type 2, uncontrolled Status: Chronic (4) Myasthenia gravis Status: Chronic (5) Polyglandular autoimmune syndrome Status: Chronic
[2019-02-11] MEDS: CALCITRIOL 0.25 MCG CAPSULE PO SCH ×2 (15:22→20:20)
[2019-02-11] MEDS: POLYETHYLENE GLYCOL 3350 17 GM PACKET PO SCH (20:19)
[2019-02-11] MEDS: OMEPRAZOLE 20 MG CAPSULE PO SCH (20:20)
[2019-02-11] MEDS: DULoxetine 30 MG CAPSULE PO SCH (20:20)
[2019-02-11] MEDS: PYRIDOSTIGMINE 60 MG TABLET PO SCH (20:20)
[2019-02-12] MEDS: 0.9 % SODIUM CHLORIDE 1,000 ML IV SCH ×4 (02:08→22:37)
[2019-02-12] MEDS: oxyCODONE HCL 5 MG TABLET PO PRN ×4 (02:27→17:02)
[2019-02-12] MEDS: fentaNYL 100 MCG/2 ML VIAL IV PRN ×4 (07:15→17:52)
[2019-02-12] MEDS: metFORMIN 500 MG TABLET PO SCH (07:16)
[2019-02-12] MEDS: predniSONE 20 MG TABLET PO SCH (07:16)
[2019-02-12] MEDS: LEVOTHYROXINE 125 MCG TABLET PO SCH (07:16)
--- NOTE | 2019-02-12 07:28 | XRay Report ---
CLINICAL INFORMATION: Bowel obstruction TECHNIQUE: Supine and upright abdomen COMPARISON: Previous CT scan dated 02/11/2019. Previous plain film studies dated 02/02/2019, 01/30/2019, 01/29/2019 FINDINGS: Gas filled small bowel with moderate dilatation. Cross-sectional diameter measures approximately 4.5 cm. Shaped air-fluid levels on upright examination. Overall appearance is slightly worse than on 02/02/2019 and similar to the examination dated 01/30/2019 No pneumoperitoneum. No biliary or portal venous gas. No pneumatosis. IMPRESSION: Mildly dilated gas filled small bowel as above Interpreted and Authenticated by: All Cormier 02/12/19
[2019-02-12] MEDS: POLYETHYLENE GLYCOL 3350 17 GM PACKET PO SCH ×2 (08:20→21:58)
[2019-02-12] MEDS: ERYTHROMYCIN BASE 250 MG TABLET PO SCH ×4 (08:22→21:58)
[2019-02-12] MEDS: OMEPRAZOLE 20 MG CAPSULE PO SCH ×2 (08:22→21:58)
[2019-02-12] MEDS: DULoxetine 30 MG CAPSULE PO SCH ×2 (08:22→22:09)
[2019-02-12] MEDS: MAGNESIUM OXIDE 400 MG TABLET PO SCH (08:22)
[2019-02-12] MEDS: CALCITRIOL 0.25 MCG CAPSULE PO SCH ×3 (08:22→21:58)
[2019-02-12] MEDS: PYRIDOSTIGMINE 60 MG TABLET PO SCH ×2 (08:22→22:11)
[2019-02-12] MEDS: CALCIUM CARBONATE 1,250 MG/5 ML ORAL.SUSP PO SCH (08:22)
[2019-02-12] MEDS ORDERED: METOPROLOL SUCCINATE 50 MG TAB.XL.24H PO SCH (09:00)
[2019-02-12] MEDS ORDERED: LISINOPRIL 20 MG TABLET PO SCH (09:00)
[2019-02-12] MEDS: 0.9 % SODIUM CHLORIDE 10 ML SYRINGE IV SCH ×2 (09:06→22:10)
[2019-02-12] MEDS: CYCLOBENZAPRINE 10 MG TABLET PO PRN (13:29)
--- NOTE | 2019-02-12 17:08 | General Surgery Progress Note ---
Subjective Patient reports: feels better, pain is less, tolerating liquids well, flatus, bowel movement, diarrhea, afebrile Narrative: Note initiated : 02/12/19 at 5:06 pm Service Date, if different from initiated Date: [] Patient: Dayanna Stephens 58 y/o F admitted on 02/11/19 for Another Small Bowel Obstruction. Chief Complaint: [patient continues to improve. She has had multiple bowel movements today with large volume flatus. She is afebrile. She denies having any abdominal pain. She was noted to have low blood pressure with systolic of 90 Associated within normal Pulse rate of 88. Her antihypertensives have been withheld and will check her blood pressures later. Her diet is advanced to a regular diet.] Objective Temp Pulse Resp BP Pulse Ox 97.3 F 93 H 16 92/53 95 02/12/19 15:52 02/12/19 15:52 02/12/19 15:52 02/12/19 15:52 02/12/19 15:52 - Additional Data Intake & Output - Last 24 hours: Intake & Output 02/10/19 02/11/19 02/12/19 02/13/19 05:59 05:59 05:59 05:59 Intake Total 3573 2480 Output Total 2925 3920 Balance 648 -1440 Weight 216 lb 215 lb 215 lb - General physical appearance well developed, well nourished, no distress - Eyes PERRL, normal ocular movement - ENT normal pinna, normal nares, normal mucosa, no hearing loss, no congestion - Neck no masses, no bruits, trachea midline, no lymphadenopathy, no venous distension - Respiratory normal expansion, normal respiratory effort, clear to auscultation - Cardiovascular Cardiovascular exam: Present: normal rate and rhythm, JVD, RRR. Absent: tachycardia - Abdomen non tender (abdominal exam is benign; stoma is working appropriately), bowel sounds (present), surgical scars (none), masses (none) - Integumentary no rash, no growths, no abnormal pigmentation - Neurologic normal coordination, normal sensation - Musculoskeletal normal gait, normal posture - Psychiatric oriented to time, oriented to person, oriented to place, speech is normal, memory intact - Labs 02/11/19 03:05 02/11/19 03:05 Assessment and Plan (1) Chronic intestinal pseudo-obstruction Status: Acute Assessment and plan: Continue present therapy. Regular diet. Monitor blood pressure closely. Probable discharge tomorrow Current Visit: No (2) Chronic use of steroids Problem details: for myasthenia gravis; 10+ years Status: Chronic Current Visit: No (3) Diabetes mellitus type 2, uncontrolled Status: Chronic Current Visit: No (4) Myasthenia gravis Status: Chronic Current Visit: No (5) Polyglandular autoimmune syndrome Status: Chronic Current Visit: No - Time Spent With Patient Total time spent is greater than 50% in coordination of care (as documented) at patient's floor/unit and/or counseling patient:
[2019-02-12] MEDS ORDERED: 0.9 % SODIUM CHLORIDE 1,000 ML IV ONE (20:18)
[2019-02-12 21:08] LABS: Basophils # (Auto) 0 K/mcL (0.0-0.3); Basophils % (Auto) 0.3 % (0.0-2.0); Eosinophils # (Auto) 0.1 K/mcL (0.0-0.7); Eosinophils % (Auto) 1.8 % (0.0-7.0); Granulocytes % (Auto) 65.2 % (38.0-78.0); Lymphocytes # (Auto) 1.8 K/mcL (1.5-4.8); Lymphocytes % (Auto) 23.6 % (15.5-49.0); Mean Cell Volume 84.3 fL (80.0-100.0); Mean Corpuscular HGB Conc 32.2 g/dL (31.0-36.0); Monocytes # (Auto) 0.7 K/mcL (0.1-0.9); Monocytes % (Auto) 9.1 % (1.0-12.0); Platelet Count 315 K/mcL (140-440); RBC 3.23 M/mcL (4.00-5.20); Red Cell Distribution Width 17.9 % (11.5-14.5)
[2019-02-12 21:24] LABS: C-Reactive Protein 1.9 mg/dl (0.0-0.8)
[2019-02-12] MEDS ORDERED: ACETAMINOPHEN 500 MG TABLET PO PRN (21:47)
[2019-02-12] MEDS ORDERED: ACETAMINOPHEN 500 MG TABLET PO ONE (21:58)
[2019-02-13] MEDS: 0.9 % SODIUM CHLORIDE 1,000 ML IV SCH ×3 (02:45→11:31)
[2019-02-13] MEDS: POLYETHYLENE GLYCOL 3350 17 GM PACKET PO SCH (07:34)
[2019-02-13] MEDS: CALCIUM CARBONATE 1,250 MG/5 ML ORAL.SUSP PO SCH (07:37)
[2019-02-13] MEDS: CALCITRIOL 0.25 MCG CAPSULE PO SCH (07:38)
[2019-02-13] MEDS: oxyCODONE HCL 5 MG TABLET PO PRN ×2 (07:38→11:29)
[2019-02-13] MEDS: MAGNESIUM OXIDE 400 MG TABLET PO SCH (07:38)
[2019-02-13] MEDS: metFORMIN 500 MG TABLET PO SCH (07:38)
[2019-02-13] MEDS: ERYTHROMYCIN BASE 250 MG TABLET PO SCH ×2 (07:38→11:29)
[2019-02-13] MEDS: PYRIDOSTIGMINE 60 MG TABLET PO SCH (07:38)
[2019-02-13] MEDS: predniSONE 20 MG TABLET PO SCH (07:38)
[2019-02-13] MEDS: OMEPRAZOLE 20 MG CAPSULE PO SCH (07:38)
[2019-02-13] MEDS: DULoxetine 30 MG CAPSULE PO SCH (07:38)
[2019-02-13] MEDS: LEVOTHYROXINE 125 MCG TABLET PO SCH (07:38)
[2019-02-13] MEDS: 0.9 % SODIUM CHLORIDE 10 ML SYRINGE IV SCH (07:41)
[2019-02-13 09:32] LABS: Basophils # (Auto) 0 K/mcL (0.0-0.3); Basophils % (Auto) 0.4 % (0.0-2.0); Eosinophils # (Auto) 0.2 K/mcL (0.0-0.7); Eosinophils % (Auto) 3.8 % (0.0-7.0); Granulocytes % (Auto) 53.3 % (38.0-78.0); Lymphocytes # (Auto) 1.9 K/mcL (1.5-4.8); Lymphocytes % (Auto) 33.6 % (15.5-49.0); Mean Cell Volume 84.5 fL (80.0-100.0); Monocytes # (Auto) 0.5 K/mcL (0.1-0.9); Monocytes % (Auto) 8.9 % (1.0-12.0); Platelet Count 299 K/mcL (140-440); RBC 3.49 M/mcL (4.00-5.20); Red Cell Distribution Width 18.2 % (11.5-14.5)
[2019-02-13 09:49] LABS: ALT/SGPT 14 U/l (0-40); Albumin 2.7 gm/dL (3.2-5.2); Alkaline Phosphatase 65 U/L (39-117); Bilirubin,Direct < 0.2 mg/dL (0.0-0.3); Blood Urea Nitrogen 8 mg/dl (6-20); Gamma Glutamyl Transpeptidase 18 U/L (5-36); Uric Acid 5.1 mg/dL (2.5-8.0)
--- NOTE | 2019-02-13 11:28 | Discharge Summary ---
Providers - Providers Patient information: Note initiated : 02/13/19 at 11:28 am Service Date, if different from initiated Date: [] Patient: Dayanna Stephens 58 y/o F admitted on 02/11/19 for Another Small Bowel Obstruction. Chief Complaint: [] Date of admission: 02/11/19 Discharge date: 02/13/19 Attending physician: Bertha Baires Hospitalization Hospital course: 58-year-old female admitted on 19 complaints of abdominal pain, nausea, vomiting, and decreased output through her ileostomy. She had an x-ray which showed diffuse dilation of multiple loops of small bowel which is normal for her. She started having output through her stoma while in the emergency room, but she had continued nausea with vomiting. She was admitted for control of these symptoms and to adjust her medications. While hospitalized, she had progressive output through her stoma and her abdominal pain resolved. She was advanced to a regular diet as of yesterday and has tolerated that well. She did have hypotension on yesterday. She received an extra liter of fluid and her antihypertensives were discontinued. She is advised to not take her antihypertensives until she is seen by Dr. Haque, or by me as an outpatient. Blood pressure today is about 110 systolic and her heart rate is regular in the 80s. Patient is clinically stable and is discharged home with the only change in medication being to discontinue using the lisinopril and metoprolol. Discharge diagnosis: adynamic ileus Secondary discharge diagnosis: Chronic intestinal pseudoobstruction. Ileostomy status. Transient hypotension. Situational depression. History of myasthenia gravis Reason for admission: abdominal pain, nausea and vomiting Procedures: None Pertinent studies/significant findings: CT of abdomen and pelvis with contrast Complications: None Exam Temp Pulse Resp BP Pulse Ox 97.3 F 80 16 105/65 98 02/13/19 07:13 02/13/19 04:00 02/13/19 07:13 02/13/19 09:20 02/13/19 07:13 - General physical appearance well developed, well nourished, no distress - Eyes PERRL, normal ocular movement - ENT normal pinna, normal nares, normal mucosa, no hearing loss, no congestion - Head Head exam IM: Present: atraumatic, normocephalic - Neck no masses, no bruits, trachea midline, no lymphadenopathy, no venous distension - Cardiovascular Cardiovascular exam IM: Present: normal rate and rhythm, RRR, +S1, +S2. Absent: JVD, tachycardia - Respiratory normal expansion, normal respiratory effort, clear to auscultation - Abdomen Abdomen: Present: soft, non tender, bowel sounds, surgical scars (incision is well-healed without any evidence of herniation; stoma is healed and is functioning normally) Hernia: Present: none - Genitourinary Present: normal external genitalia - Integumentary Present: no rash, no growths, no abnormal pigmentation - Neurologic Present: normal coordination, normal sensation - Musculoskeletal Present: normal gait, normal posture - Psychiatric Present: oriented to time, oriented to person, oriented to place, speech is normal, memory intact Discharge Plan - Patient/Caregiver Discharge Instructions Activity: increase activity as tolerated Diet: Regular Diet Additional Instructions: Discontinue use of lisinopril and metoprolol. Follow-up in the office in 2 weeks Prescriptions: oxyCODONE HCL [Roxicodone] 10 mg PO Q4HP PRN #60 tab PRN Reason: Pain Level 3-6 Promethazine [Phenergan] 25 mg PO Q6HP PRN #60 tab PRN Reason: Nausea - Follow up Plan Follow up with: Douglas Haque MD [Primary Care Provider] - Disposition: Home, Self-Care Prognosis: Good Rehab Potential: Good I certify that the patient requires SNF services.: No Overall status at discharge: patient is progressing back to baseline Pending Studies Resuscitation Status Full Code Diet Regular Diet Start SatFebruary 12 1643 Acetaminophen (Tylenol) 1,000 mg PO Q6HP PRN PRN Reason: PAIN/FEVER > 101 Last Admin: 02/12/19 21:58 Dose: 1,000 mg Documented by: BOAZ Calcitriol (Rocaltrol) 0.25 mcg PO TID [place] Last Admin: 02/13/19 07:38 Dose: 0.25 mcg Documented by: Admin: 02/12/19 21:58 Dose: 0.25 mcg Documented by: Admin: 02/12/19 14:47 Dose: 0.25 mcg Documented by: Admin: 02/12/19 08:22 Dose: 0.25 mcg Documented by: Admin: 02/11/19 20:20 Dose: 0.25 mcg Documented by: Admin: 02/11/19 15:22 Dose: 0.25 mcg Documented by: BLOSSOM Calcium Carbonate/Glycine (Calcium Carbonate) 1,250 mg PO DAILY [facility] Last Admin: 02/13/19 07:37 Dose: 1,250 mg Documented by: Admin: 02/12/19 08:22 Dose: 1,250 mg Documented by: BLOSSOM Cyclobenzaprine HCl (Flexeril) 10 mg PO TIDP PRN PRN Reason: Muscle Spasm Last Admin: 02/12/19 13:29 Dose: 10 mg Documented by: Admin: 02/11/19 22:38 Dose: 10 mg Documented by: Admin: 02/11/19 13:00 Dose: 10 mg Documented by: VALERIA Duloxetine HCl (Cymbalta) 30 mg PO BID [facility] Last Admin: 02/13/19 07:38 Dose: 30 mg Documented by: Admin: 02/12/19 22:09 Dose: Not Given Documented by: Admin: 02/12/19 08:22 Dose: 30 mg Documented by: Admin: 02/11/19 20:20 Dose: 30 mg Documented by: BOAZ Erythromycin (Erythromycin) 250 mg PO QID [facility] Last Admin: 02/13/19 07:38 Dose: 250 mg Documented by: Admin: 02/12/19 21:58 Dose: 250 mg Documented by: Admin: 02/12/19 17:02 Dose: 250 mg Documented by: Admin: 02/12/19 13:25 Dose: 250 mg Documented by: Admin: 02/12/19 08:22 Dose: 250 mg Documented by: Admin: 02/11/19 20:20 Dose: 250 mg Documented by: Admin: 02/11/19 17:10 Dose: 250 mg Documented by: Admin: 02/11/19 13:00 Dose: 250 mg Documented by: VALERAI Heparin Sodium (Porcine) (Heparin Flush) 5 ml IV Q12 [facility] Last Admin: 02/13/19 07:41 Dose: Not Given Documented by: Admin: 02/12/19 22:03 Dose: 5 ml Documented by: Admin: 02/12/19 09:06 Dose: Not Given Documented by: BLOSSOM Sodium Chloride (Sodium Chloride 0.9%) 1,000 mls @ 150 mls/hr IV .Q6H40M [facility] Last Admin: 02/13/19 09:50 Dose: 150 mls/hr Documented by: Infusion: 02/13/19 09:26 Dose: 150 mls/hr Documented by: Admin: 02/13/19 02:45 Dose: 150 mls/hr [facility]fusion: 02/13/19 02:45 Dose: 150 mls/hr [facility] Admin: 02/12/19 22:37 Dose: 150 mls/hr Documented by: Infusion: 02/12/19 22:37 Dose: 150 mls/hr Documented by: [facility] Admin: 02/12/19 17:03 Dose: 150 mls/hr [facility]: 02/12/19 17:03 Dose: 0 mls/hr Documented by: [facility] Admin: 02/12/19 09:21 Dose: 150 mls/hr Documented by: [email or web address] Infusion: 02/12/19 09:20 Dose: 0 mls/hr Documented by: [facility] Admin: 02/12/19 02:08 Dose: 150 mls/hr Documented by: Infusion: 02/12/19 02:08 Dose: 150 mls/hr [facility] Admin: 02/11/19 19:35 Dose: 150 mls/hr Documented by: Infusion: 02/11/19 19:35 Dose: 150 mls/hr [facility] Admin: 02/11/19 13:19 Dose: 150 mls/hr Documented by: [facility] Levothyroxine Sodium (Synthroid) 250 mcg PO QAMAC [facility] Last Admin: 02/13/19 07:38 Dose: 250 mcg Documented by: Admin: 02/12/19 07:16 Dose: 250 mcg Documented by: LBOSSOM Magnesium Oxide (Magnesium Oxide) 400 mg PO DAILY [facility] Last Admin: 02/13/19 07:38 Dose: 400 mg Documented by: Admin: 02/12/19 08:22 Dose: 400 mg Documented by: BLOSSOM Metformin HCl (Glucophage) 500 mg PO [facility] Last Admin: 02/13/19 07:38 Dose: 500 mg Documented by: Admin: 02/12/19 07:16 Dose: 500 mg Documented by: BLOSSOM Omeprazole (Prilosec) 20 mg PO BID [facility] Last Admin: 02/13/19 07:38 Dose: 20 mg Documented by: Admin: 02/12/19 21:58 Dose: 20 mg Documented by: Admin: 02/12/19 08:22 Dose: 20 mg Documented by: Admin: 02/11/19 20:20 Dose: 20 mg Documented by: BOAZ Oxycodone HCl (Roxicodone) 10 mg PO Q4HP PRN PRN Reason: PAIN LEVEL 3-6 Last Admin: 02/13/19 07:38 Dose: 10 mg Documented by: Admin: 02/12/19 17:02 Dose: 10 mg Documented by: Admin: 02/12/19 12:09 Dose: 10 mg Documented by: Admin: 02/12/19 07:14 Dose: 10 mg Documented by: Admin: 02/12/19 02:27 Dose: 10 mg Documented by: Admin: 02/11/19 22:37 Dose: 10 mg Documented by: Admin: 02/11/19 17:10 Dose: 10 mg Documented by: Admin: 02/11/19 13:17 Dose: 10 mg Documented by: VALERIA Polyethylene Glycol (Miralax) 17 gm PO BID [facility] Last Admin: 02/13/19 07:34 Dose: 17 gm Documented by: Admin: 02/12/19 21:58 Dose: 17 gm Documented by: Admin: 02/12/19 08:20 Dose: 17 gm Documented by: Admin: 02/11/19 20:19 Dose: 17 gm Documented by: BOAZ Prednisone (Prednisone) 20 mg PO [facility] Last Admin: 02/13/19 07:38 Dose: 20 mg Documented by: Admin: 02/12/19 07:16 Dose: 20 mg Documented by: [place] Promethazine HCl (Phenergan) 12.5 mg IV Q4-6HP PRN PRN Reason: Nausea And Vomiting Last Admin: 02/11/19 17:10 Dose: 12.5 mg Documented by: Admin: 02/11/19 13:01 Dose: 12.5 mg Documented by: VALERIA Pyridostigmine Dud[place] (Mestinon) 60 mg PO BID [facility] Last Admin: 02/13/19 07:38 Dose: 60 mg Documented by: Admin: 02/12/19 22:11 Dose: Not Given Documented by: Admin: 02/12/19 08:22 Dose: 60 mg Documented by: Admin: 02/11/19 20:20 Dose: 60 mg Documented by: BOAZ Sodium Chloride (Saline Flush) 10 ml IV Q12 [facility] Last Admin: 02/13/19 07:41 Dose: Not Given Documented by: Admin: 02/12/19 22:10 Dose: Not Given Documented by: Admin: 02/12/19 09:06 Dose: Not Given Documented by: BLOSSOM Shift Summary 02/13/19 03:17 Shift Summary by Sandra Nevarez a/o x4, up to brp with sba assist, bed alarm has been used,bruises to bilateral marcos, has left upper chest wall port with ns at 150 cc/hr, not able to obtain lab draws from port, last day shift b/p was 82/42, md had been made aware earlier that her b/p was low and the nurse held her b/p meds, at beginning of our shift her b/p was 69/39, dr baires was called and she was given a bolus of ns, with cbc,crp and lactic acid drawn, results were called to dr baires, it was decided to hold all narcotics and muscle relaxants, new order of tylenol 1000 mg po q 6 hr received, patient has been made aware that she will not be receiving any pain meds or muscle relaxants, b/p has slowly came back up at 0150 b/p of 123/71 with pulse of 95 was noted, has ostomy to rt side of abd, has had 2 liquid semi formed yellow/brown stools, voids with no difficulty, refuses foot pumps, good appetite, was given sandwich and fruit cup in the middle of night. Initialized on 02/13/19 03:17 - END OF NOTE
[2019-02-13] MEDS ORDERED: HEPARIN SODIUM,PORCINE/PF 500 UNIT/5 ML SYRINGE IV ONE (11:35)
== END 2019-02-13 12:35 | disposition home or self-care (01) | DRG 390 ==
LOC: ED 02:45 → MEDSUR 09:12
PROVIDERS: ADMIT Family Medicine Adult Medicine; ATTEND Family Medicine Adult Medicine

== ENCOUNTER 2019-02-17 17:17 | Inpatient (IN) ==
[2019-02-17] MEDS ORDERED: PROMETHAZINE 25 MG/ML VIAL IV ONE (18:28)
--- NOTE | 2019-02-17 18:31 | Emergency Department Note ---
Abdominal Pain HPI - General Chief Complaint: Abdominal Pain Stated Complaint: Abd pain and bloating Time Seen by Provider: 02/17/19 17:38 Source: patient Mode of arrival: wheelchair - History of Present Illness HPI Narrative: 58-year-old female in ED with low left quadrant abdominal pain, nausea, vomiting. Patient states she has history of bowel obstructions and has been to the ER twice in the last 5 days. Patient states pain is increasing as is vomiting. Patient feels extremely bloated. She advises her ileostomy has been producing movements and she did empty it prior to arrival. She has not had any intake as food for 5 days. Patient's pain is 8-9/10, she states this is the same as it has been in the past with an obstruction and it is pressure-like with bloating. MD Complaint: abdominal pain Onset (ago): day(s) (5) Consistency: constant Location: diffuse Severity: severe, similar to previous episodes Severity scale (1-10): 9 Quality: aching, fullness, sharp, other (pressure) Worsens with: medication Associated symptoms: Reports: nausea, vomiting - Related Data Home Medications Medication Instructions Recorded Confirmed DULoxetine [Cymbalta] 30 mg PO BID 11/30/16 02/11/19 Levothyroxine [Synthroid] 250 mcg PO QAMAC 08/20/17 02/11/19 Polyethylene Glycol 3350 [Miralax] 17 gm PO BID 09/18/17 02/11/19 Polyethylene Glycol 3350 [Miralax] 17 gm PO DAILYP PRN 01/15/19 02/11/19 Calcitriol [Rocaltrol] 0.25 mcg PO TID 02/11/19 02/11/19 Cyclobenzaprine [Flexeril] 10 mg PO TIDP PRN 02/11/19 02/11/19 Erythromycin Base [Erythromycin] 250 mg PO QID 02/11/19 02/11/19 Omeprazole [Prilosec] 20 mg PO BID 02/11/19 02/11/19 Pyridostigmine [Mestinon] 60 mg PO BID 02/11/19 02/11/19 Previous Rx's Medication Instructions Recorded predniSONE [Prednisone] 20 mg PO [facility] #4 tab 05/18/16 metFORMIN HCL [Metformin HCl] 500 mg PO DAILY #30 tab 10/17/18 Calcium Carbonate 1,250 mg PO DAILY #50 oral.susp 01/18/19 Magnesium Oxide 400 mg PO DAILY #10 tab 01/18/19 Promethazine [Phenergan] 25 mg PO Q6HP PRN #60 tab 02/13/19 oxyCODONE HCL [Roxicodone] 10 mg PO Q4HP PRN #60 tab 02/13/19 Allergies Allergy/AdvReac Type Severity Reaction Status Date / Time Sulfa (Sulfonamide Allergy Severe Anaphylaxis Verified 02/17/19 17:22 Antibiotics) adhesive tape AdvReac Mild Blister Verified 02/17/19 17:22 metoclopramide [From Reglan] AdvReac Mild Anxiety Verified 02/17/19 17:22 steri strips Allergy Severe Blister Uncoded 02/17/19 17:22 Review of Systems All systems ED: reviewed and negative except as stated. Abdominal Pain PMH - Past Medical History PMFSH Narrative: All Active Problems (Last Reviewed 01/22/19 @ 10:44 by Steph Hart RN) Chronic intestinal pseudo-obstruction (Acute) Hypercalcemia (Acute) Abdominal pain (Acute) Intractable vomiting (Acute) Diabetes mellitus type 2, uncontrolled (Chronic) Small bowel obstruction (Acute) Abdominal pain (Acute) Nausea & vomiting (Acute) Hyponatremia (Acute) Dehydration (Acute) S/P ileostomy (Chronic) Obesity, Class II, BMI 35-39.9 (Chronic) Hypertension (Chronic) Recurrent intestinal obstruction (Chronic) Chronic use of steroids (Chronic) Abnormal liver enzymes (Chronic) Hypothyroidism (Chronic) Myasthenia gravis (Chronic) Polyglandular autoimmune syndrome (Chronic) Sarcoidosis (Chronic) Hypocalcemia (Chronic) Achalasia and cardiospasm (Chronic) Constipation due to pain medication therapy (Chronic) Encounter for care related to Port-a-Cath (Chronic) Past Surgical History (Last Reviewed 01/22/19 @ 10:44 by Steph Hart RN) S/P ileostomy (Chronic) History of exploratory laparotomy (Acute) History of exploratory laparotomy (Acute) History of exploratory laparotomy (Acute) History of exploratory laparotomy (Acute) Family History (Last Reviewed 01/22/19 @ 10:44 by Steph Hart RN) Father CAD (coronary artery disease) Mother CAD (coronary artery disease) Grandfather CVA (cerebral vascular accident) Grandmother CVA (cerebral vascular accident) Medical history: Reports: COPD, hypertension, hypothyroidism, other (Myasthenia gravis). Denies: DVT, pulmonary embolus Psychiatric history: Reports: anxiety, depression [employer] history: Reports: non-contributory Family history: Reports: other - Social History Smoking status: Former smoker Alcohol use: Reports: None Drug use: Reports: none. Denies: marijuana Physical Exam Limitations: no limitations General appearance: alert, in no apparent distress Head: atraumatic, normocephalic, normal inspection Eye: Present: normal appearance, PERRL, EOMI. Absent: conjunctival injection ENT: normal oropharynx, mucous membranes moist, TM's normal bilaterally, normal external ear exam Neck: Present: normal inspection. Absent: tenderness, lymphadenopathy Chest: Present: normal inspection, symmetric chest wall rise. Absent: tenderness Respiratory: Present: normal lung sounds bilaterally. Absent: respiratory distress, rales/crackles, wheezes Cardiovascular: Present: tachycardia. Absent: systolic murmur, diastolic murmur Abdominal: Present: distention, tenderness, hypoactive bowel sounds. Absent: guarding, rebound, rigidity Extremities: Present: full ROM, normal capillary refill, pedal edema (1+) Back: Present: normal inspection. Absent: tenderness, CVA tenderness (R), CVA tenderness (L) Neurological: Present: alert, oriented X3, normal gait Psychiatric: Present: normal affect, normal mood. Absent: depressed, agitated, anxious, flat affect Skin: Present: warm, dry, intact, normal color. Absent: cool, diaphoretic Course Vital Signs Temperature 98.2 F 02/17/19 17:18 Pulse Rate 121 H 02/17/19 17:18 Respiratory Rate 02/17/19 17:18 Pulse Oximetry (%) 96 02/17/19 17:18 Temperature 98.2 F 02/17/19 17:18 Pulse Rate 121 H 02/17/19 17:18 Respiratory Rate 02/17/19 17:18 Pulse Oximetry (%) 96 02/17/19 17:18 Abdominal Pain - MDM Narrative Medical decision making narrative: Consulted with on patient history and presentation along with diagnostics. Pt to be admitted for observation. - Medical Records Medical records reviewed: Yes I reviewed the patient's medical records. Ab/pelvic CT with contrast on 02/16/2019: CLINICAL INFORMATION: Recurrent small bowel obstruction COMPARISON: Multiple previous CT scans and plain film studies. Most recent previous CT scan is dated 02/11/2019. Most recent plain film examination is dated 02/12/2019 TECHNIQUE: Axial images were obtained through the abdomen and pelvis. Sagittally and coronally reformatted images. Intravenous contrast material was not administered as we could not establish IV access. FINDINGS: History of previous colectomy and right lower quadrant ileostomy. There is markedly dilated small bowel. Stomach is also significantly dilated and filled with fluid and gas. Small bowel measures almost 6 cm in maximum dimension. Small bowel is gas and fluid filled. There is a transition zone in the right lower quadrant. Ileum is collapsed. Appearance is consistent with mechanical small bowel obstruction. There is no closed loop obstruction. There is no localized bowel wall thickening or evidence for bowel ischemia or infarction. There is no pneumoperitoneum. There is no biliary or portal venous gas. There is no pneumatosis. Lung bases are negative. No parenchymal infiltrate or mass. There is no pleural fluid. Liver is negative to the limits of noncontrast enhanced examination. Liver contour is smooth. Spleen is negative. There is no splenomegaly. No pancreatic mass. No peripancreatic abnormality. Adrenal glands are negative. Kidneys are negative. No solid or cystic mass identified on this noncontrast enhanced study. There is no hydronephrosis. Uterus is present. There is no adnexal mass. No intra-abdominal abscess. No pneumoperitoneum. No biliary or portal venous gas. There is a midline and right sided irregular fluid collection within the abdominal wall. Appearance is most consistent with seroma. This is essentially unchanged. There are no gas bubbles. IMPRESSION: 1. Findings consistent with recurrent high-grade mechanical small bowel obstruction. Transition point is in the right lower quadrant with collapsed ileum. 2. Markedly dilated stomach and small bowel 3. No pneumoperitoneum. No intra-abdominal abscess - Lab Data Result diagrams: 02/17/19 18:07 02/17/19 18:07 Lab Results 02/17/19 02/17/19 Range/Units 18:07 18:07 WBC 10.2 (4.5-11.0) K/mcL RBC 4.45 (4.00-5.20) M/mcL Hgb 12.0 (12.0-15.0) g/dL Hct 37.1 (36.0-48.0) % MCV 83.3 (80.0-100.0) fL MCH 27.0 (26.0-34.0) pg MCHC 32.4 (31.0-36.0) g/dL RDW 17.3 H (11.5-14.5) % Plt Count 414 (140-440) K/mcL MPV 7.5 (7.4-10.4) fL Gran % 67.2 (38.0-78.0) % Lymph % (Auto) 21.6 (15.5-49.0) % [place]pine % (Auto) 9.8 (1.0-12.0) % Eos % (Auto) 1.0 (0.0-7.0) % Baso % (Auto) 0.4 (0.0-2.0) % Gran # 6.8 (1.8-8.0) K/mcL Lymph # (Auto) 2.2 (1.5-4.8) K/mcL [place]pine # (Auto) 1.0 H (0.1-0.9) K/mcL Eos # (Auto) 0.1 (0.0-0.7) K/mcL Baso # (Auto) 0 (0.0-0.3) K/mcL Sodium 134 (133-145) mmol/L Potassium 3.7 (3.3-5.1) mmol/L Chloride 87 L (96-108) mmol/L Carbon Dioxide 25 (22-30) mmol/L Anion Gap 22.0 H (8-16) BUN 8 (6-20) mg/dl Creatinine 0.7 (0.6-1.1) mg/dl GFR Calculation 96 Glucose 152 H (70-105) mg/dL Calcium 7.3 L (8.6-10.4) mg/dl Total Bilirubin 0.4 (0.0-1.0) mg/dL AST 17 (0-37) U/l ALT 18 (0-40) U/l Alkaline Phosphatase 89 (39-117) U/L Total Protein 6.4 (5.9-8.4) gm/dL Albumin 3.4 (3.2-5.2) gm/dL Globulin 3.0 (2.2-3.7) gm/dL Albumin/Globulin Ratio 1.1 (1.0-2.3) - Radiology Data Radiology results reviewed: Yes I reviewed the patient's radiology results. Abdominal x-ray 2 view: COMPARISON: multiple CT scans and plain film examinations. Most recent previous plain film studies dated 02/12/2019. Most recent previous CT scan is dated 02/16/2019 FINDINGS: Patient has undergone previous colectomy. She has a history of multiple episodes of mechanical small bowel obstruction. Gaseous distention of the stomach and small bowel. Appearance is consistent with recurrent mechanical small bowel obstruction. No pneumoperitoneum. No biliary or portal venous gas. No pneumatosis. IMPRESSION: Recurrent mechanical small bowel obstruction Disposition Pt seen by [facility]/PA only: No ([place]) Clinical Impression: Small bowel obstruction Disposition: Xfer As Inpt ([facility]) Condition: Fair Referrals: Douglas Haque MD [Primary Care Provider] - Time of Disposition: 19:38
[2019-02-17 18:43] LABS: Basophils # (Auto) 0 K/mcL (0.0-0.3); Basophils % (Auto) 0.4 % (0.0-2.0); Eosinophils # (Auto) 0.1 K/mcL (0.0-0.7); Granulocytes % (Auto) 67.2 % (38.0-78.0); Lymphocytes # (Auto) 2.2 K/mcL (1.5-4.8); Lymphocytes % (Auto) 21.6 % (15.5-49.0); Mean Cell Volume 83.3 fL (80.0-100.0); Mean Corpuscular HGB Conc 32.4 g/dL (31.0-36.0); Monocytes % (Auto) 9.8 % (1.0-12.0); Platelet Count 414 K/mcL (140-440); RBC 4.45 M/mcL (4.00-5.20); Red Cell Distribution Width 17.3 % (11.5-14.5)
[2019-02-17 19:04] LABS: ALT/SGPT 18 U/l (0-40); Albumin 3.4 gm/dL (3.2-5.2); Albumin/Globulin Ratio 1.1 (1.0-2.3); Alkaline Phosphatase 89 U/L (39-117); Blood Urea Nitrogen 8 mg/dl (6-20)
--- NOTE | 2019-02-17 19:04 | XRay Report ---
CLINICAL INFORMATION: Recurrent small bowel obstruction TECHNIQUE: Supine and upright abdomen COMPARISON: multiple CT scans and plain film examinations. Most recent previous plain film studies dated 02/12/2019. Most recent previous CT scan is dated 02/16/2019 FINDINGS: Patient has undergone previous colectomy. She has a history of multiple episodes of mechanical small bowel obstruction. Gaseous distention of the stomach and small bowel. Appearance is consistent with recurrent mechanical small bowel obstruction. No pneumoperitoneum. No biliary or portal venous gas. No pneumatosis. IMPRESSION: Recurrent chemical small bowel obstruction Interpreted and Authenticated by: All Cormier 02/17/19
[2019-02-17] MEDS ORDERED: fentaNYL 100 MCG/2 ML VIAL IV ONE (20:21)
[2019-02-17] MEDS: 0.9 % SODIUM CHLORIDE 1,000 ML IV SCH (20:50)
[2019-02-17] MEDS: fentaNYL 100 MCG/2 ML VIAL IV PRN (23:03)
[2019-02-18] MEDS: PROMETHAZINE 25 MG/ML VIAL IV PRN ×5 (01:39→23:48)
[2019-02-18] MEDS: 0.9 % SODIUM CHLORIDE 1,000 ML IV SCH ×4 (03:15→22:19)
--- NOTE | 2019-02-18 06:25 | XRay Report ---
CLINICAL INFORMATION: Bowel obstruction. Nasogastric tube placement TECHNIQUE: AP chest x-ray and upper abdomen COMPARISON: Previous plain film examination dated 02/17/2019 FINDINGS: Interval placement of esophagogastric tube. Tube is in the stomach. There may have been slight interval decompression of the stomach although there remains at least mildly distended and gas-filled Examination was initially interpreted by [facility] IMPRESSION: Esophagogastric tube in stomach Interpreted and Authenticated by: All Cormier 02/18/19
--- NOTE | 2019-02-18 07:30 | Emergency Department Note ---
ED Note Addendum Note Addendum: agree with dx and rx
[2019-02-18] MEDS: fentaNYL 100 MCG/2 ML VIAL IV PRN ×6 (07:48→23:57)
[2019-02-18] MEDS: BENZOCAINE 1 SPRAY BOTTLE TOPICAL PRN (11:09)
[2019-02-18 11:59] LABS: Appearance,Urine CLEAR; Bacteria,Urine 0 /hpf (0); Bilirubin,Urine NEG (NEG); Color,Urine YELLOW; Glucose,Urine (UA) NEGATIVE (NEG); Leukocyte Esterase,Urine 75 /uL (NEG); Mucus,Urine MANY /hpf (0); Protein,Urine NEG (NEG); Specific Gravity,Urine 1.012 (1.000-1.035); Urine Blood NEG mg/dL (<0.03); Urine RBC 1 /hpf (0-1); Urine Squamous Epithelial Cell 1 /hpf (0-4); Urine Transitional Epi Cells 1 /hpf (0-2); Urine WBC 13 /hpf (0-4); Urobilinogen,Urine NEG (NEG)
--- NOTE | 2019-02-18 17:24 | General Surg History&Physical ---
History of Present Illness Patient information: Note initiated : 02/18/19 at 5:24 pm Service Date, if different from initiated Date: [] Patient: Dayanna Stephens a 58 y/o F admitted on 02/17/19 for Abd Pain and Bloating. Chief Complaint: [] HPI: Ms. Stephens is a 58 year old F with continued severe ileus due to chronic intestinal pseudoobstruction. She was recently discharged from the hospital with 3 returns to the emergency room over the past 5 days. She was seen 2 days ago and had severe abdominal pain, nausea, vomiting with no help to her stoma. Because she has failed outpatient therapy and she has a massively dilated stomach. She is admitted for nasogastric decompression and IV hydration and possibly TPN. Review of Systems - Constitutional fatigue, lethargy, malaise, weakness, weight loss - EENT Nose, mouth and throat: dizziness, headache(s), vertigo - Cardiovascular dyspnea on exertion, palpatations, rapid heart rate - Respiratory no cough, no wheezing, no chest congestion - Gastrointestinal abdominal pain, belching, bloating, change in bowel habits, change in stool character, excessive flatus, heartburn, nausea, vomiting - Genitourinary Genitourinary: no dysuria, no urinary frequency, no urinary hesitancy - Musculoskeletal arthralgias, back pain, myalgias, tingling - Integumentary changing lesions, no dry skin, no pruritus, no rash - Neurological no abnormal hearing, no convulsions, no focal weakness, no frequent falls - Psychiatric abnormal sleep pattern, depression, irritability - Endocrine no excessive sweating, no palpitations - Hematologic/Lymphatic no easy bleeding, no easy bruising, no lymphadenopathy - Allergic/Immunologic no tongue swelling, no throat swelling, no uticaria, no wheezing, no lip swelling Past History Past medical history: Chronic intestinal pseudoobstruction. Small bowel obstruction due to adhesions. Mental confusion related to medication. Hypercalcemia, motor weakness resolved. Situational depression. Myasthenia gravis. History of peristomal hernia. History of lower abdominal dehiscence Past surgical history: Sigmoid colectomy with colostomy. Exploratory laparotomy with adhesiolysis 4. Expiratory laparotomy with repair of parastomal hernia. Exploratory laparotomy with repair of lower abdominal wall dehiscence. Parra's tube plication small bowel. Total colectomy with ileostomy Past social history: Former tobacco use. Prior history of marijuana use Denies alcohol use. Physically disabled Medications and Allergies Home Medications Medication Instructions Recorded Confirmed Type predniSONE [Prednisone] 20 mg PO [facility] #4 tab 05/18/16 02/17/19 Rx DULoxetine [Cymbalta] 30 mg PO BID 11/30/16 02/17/19 History Levothyroxine [Synthroid] 250 mcg PO QAMAC 08/20/17 02/17/19 History Polyethylene Glycol 3350 [Miralax] 17 gm PO BID 09/18/17 02/17/19 History metFORMIN HCL [Metformin HCl] 500 mg PO DAILY #30 tab 10/17/18 02/17/19 Rx Polyethylene Glycol 3350 [Miralax] 17 gm PO DAILYP PRN 01/15/19 02/17/19 History Calcium Carbonate 1,250 mg PO DAILY #50 oral.susp 01/18/19 02/17/19 Rx Magnesium Oxide 400 mg PO DAILY #10 tab 01/18/19 02/17/19 Rx Calcitriol [Rocaltrol] 0.25 mcg PO TID 02/11/19 02/17/19 History Cyclobenzaprine [Flexeril] 10 mg PO TIDP PRN 02/11/19 02/17/19 History Erythromycin Base [Erythromycin] 250 mg PO QID 02/11/19 02/17/19 History Omeprazole [Prilosec] 20 mg PO BID 02/11/19 02/17/19 History Promethazine [Phenergan] 25 mg PO Q6HP PRN #60 tab 02/13/19 02/17/19 Rx oxyCODONE HCL [Roxicodone] 10 mg PO Q4HP PRN #60 tab 02/13/19 02/17/19 Rx Pyridostigmine [place] [Regonol] 2 mg IM BID 30 Days #60 ml 02/27/19 Rx Allergies Allergy/AdvReac Type Severity Reaction Status Date / Time Sulfa (Sulfonamide Allergy Severe Anaphylaxis Verified 02/17/19 17:22 Antibiotics) adhesive tape AdvReac Mild Blister Verified 02/17/19 17:22 metoclopramide [From Reglan] AdvReac Mild Anxiety Verified 02/17/19 17:22 steri strips Allergy Severe Blister Uncoded 02/17/19 17:22 Exam Temp Pulse Resp BP Pulse Ox 99.1 F H 105 H 14 156/90 93 02/18/19 12:00 02/18/19 12:00 02/18/19 12:00 02/18/19 08:00 02/18/19 12:00 - General physical appearance well developed, well nourished, no distress - Eyes PERRL, normal ocular movement - ENT normal pinna, normal nares, normal mucosa, no hearing loss, no congestion - Head Head exam IM: Present: atraumatic, normocephalic - Neck no masses, no bruits, trachea midline, no lymphadenopathy, no venous distension - Cardiovascular Cardiovascular exam IM: Present: normal rate and rhythm - Respiratory normal expansion, normal respiratory effort, clear to percussion, clear to auscultation - Abdomen Abdomen: Present: soft, tender (dilated diffusely tender abdomen with hyperactive bowel sounds; incision is unremarkable; no parastomal hernia; ileostomy in right lower quadrant appears unremarkable), bowel sounds Hernia: Present: none - Genitourinary Present: normal external genitalia - Integumentary Present: no rash, no growths, no abnormal pigmentation - Neurologic Present: normal coordination, normal sensation - Musculoskeletal Present: normal gait, normal posture - Psychiatric Present: oriented to time, oriented to person, oriented to place, speech is normal, memory intact Assessment and Plan (1) Chronic intestinal pseudo-obstruction Nasogastric decompression. IV hydration. Possibly start TPN. Restart pyridostigmine and erythromycin as soon as possible Status: Acute (2) Chronic use of steroids Change oral prednisone to methylprednisolone Status: Chronic Comment: for myasthenia gravis; 10+ years (3) Diabetes mellitus type 2, uncontrolled Monitor Accu-Cheks and cover as needed Status: Chronic (4) Myasthenia gravis Status: Chronic (5) Polyglandular autoimmune syndrome Status: Chronic (6) Recurrent intestinal obstruction Status: Chronic Comment: many recurrences; many surgical interventions
[2019-02-19] MEDS: fentaNYL 100 MCG/2 ML VIAL IV PRN ×6 (04:18→23:40)
[2019-02-19] MEDS: 0.9 % SODIUM CHLORIDE 1,000 ML IV SCH ×3 (04:53→18:15)
[2019-02-19] MEDS: PROMETHAZINE 25 MG/ML VIAL IV PRN ×3 (08:03→16:16)
--- NOTE | 2019-02-19 18:54 | General Surgery Progress Note ---
Subjective Patient reports: feels better, still having pain, flatus, diarrhea, afebrile Narrative: Note initiated : 02/19/19 at 6:53 pm Service Date, if different from initiated Date: [] Patient: Dayanna Stephens 58 y/o F admitted on 02/19/19 for Abd Pain and Bloating. Chief Complaint: [patient is slightly improved, but she is still very symptomatic. Abdominal x-ray shows significant major distention of her stomach and bowel. Will pursue small bowel follow-through to rule out obstruction due to adhesions.] Objective Temp Pulse Resp BP Pulse Ox 99.3 F H 112 H 16 126/73 94 02/19/19 16:00 02/19/19 16:00 02/19/19 16:00 02/19/19 16:00 02/19/19 16:00 - Additional Data Intake & Output - Last 24 hours: Intake & Output 02/17/19 02/18/19 02/19/19 02/20/19 05:59 05:59 05:59 05:59 Intake Total 963 3860 3912 Output Total 2000 3795 2125 Balance -4318 844 4782 Weight 218 lb 216 lb 216 lb - General physical appearance well developed, well nourished, moderate distress, moderate pain - Eyes PERRL, normal ocular movement - ENT normal pinna, normal nares, normal mucosa, no hearing loss, no congestion - Neck no masses, no bruits, trachea midline, no lymphadenopathy, no venous distension - Respiratory normal expansion, normal respiratory effort, clear to auscultation - Cardiovascular Cardiovascular exam: Present: normal rate and rhythm, bradycardia, RRR, +S1, +S2. Absent: JVD, tachycardia - Abdomen tender (still distended abdomen with diffuse tenderness across upper midabdomen; active bowel sounds; no tenderness noted) - Integumentary no rash, no growths, no abnormal pigmentation - Neurologic normal coordination, normal sensation - Musculoskeletal normal gait, normal posture - Psychiatric oriented to time, oriented to person, oriented to place, speech is normal, memory intact - Labs 02/27/19 04:40 02/27/19 04:40 Assessment and Plan (1) Chronic intestinal pseudo-obstruction Status: Acute Assessment and plan: F/U ABDOMINAL X-RAYS IN A.M. RESTART ORAL MEDS Current Visit: No (2) Small bowel obstruction Status: Resolved Current Visit: Yes - Time Spent With Patient Total time spent is greater than 50% in coordination of care (as documented) at patient's floor/unit and/or counseling patient:
[2019-02-19] MEDS: POLYETHYLENE GLYCOL 3350 17 GM PACKET PO SCH (21:12)
[2019-02-19] MEDS: ERYTHROMYCIN BASE 250 MG TABLET PO SCH (21:13)
[2019-02-19] MEDS: DULoxetine 30 MG CAPSULE PO SCH (21:13)
[2019-02-19] MEDS: OMEPRAZOLE 20 MG CAPSULE PO SCH (21:13)
[2019-02-19] MEDS: PYRIDOSTIGMINE 60 MG TABLET PO SCH (21:13)
[2019-02-20] MEDS: 0.9 % SODIUM CHLORIDE 1,000 ML IV SCH ×3 (01:05→13:53)
[2019-02-20] MEDS: fentaNYL 100 MCG/2 ML VIAL IV PRN ×6 (03:47→22:47)
[2019-02-20 06:06] LABS: Basophils # (Auto) 0 K/mcL (0.0-0.3); Basophils % (Auto) 0.3 % (0.0-2.0); Eosinophils # (Auto) 0.2 K/mcL (0.0-0.7); Granulocytes % (Auto) 72.2 % (38.0-78.0); Lymphocytes # (Auto) 1.5 K/mcL (1.5-4.8); Lymphocytes % (Auto) 17.8 % (15.5-49.0); Mean Corpuscular HGB Conc 32.5 g/dL (31.0-36.0); Monocytes # (Auto) 0.6 K/mcL (0.1-0.9); Monocytes % (Auto) 7.7 % (1.0-12.0); Platelet Count 332 K/mcL (140-440); Red Cell Distribution Width 17.3 % (11.5-14.5)
[2019-02-20 06:44] LABS: ALT/SGPT 19 U/l (0-40); Albumin 2.8 gm/dL (3.2-5.2); Alkaline Phosphatase 78 U/L (39-117); Bilirubin,Direct < 0.2 mg/dL (0.0-0.3); Blood Urea Nitrogen 2 mg/dl (6-20); Gamma Glutamyl Transpeptidase 18 U/L (5-36); Uric Acid 6.9 mg/dL (2.5-8.0)
[2019-02-20] MEDS: LEVOTHYROXINE 125 MCG TABLET PO SCH (07:04)
[2019-02-20] MEDS: OMEPRAZOLE 20 MG CAPSULE PO SCH ×2 (07:04→17:12)
--- NOTE | 2019-02-20 07:07 | XRay Report ---
CLINICAL INFORMATION: Recurrent small bowel obstruction TECHNIQUE: Water-soluble contrast material was placed through the nasogastric tube and images were obtained to 24 hours post ingestion COMPARISON: Multiple prior plain film studies and CT scans FINDINGS: There is persistent small bowel dilatation with delayed small bowel emptying. By 24 hours post ingestion the contrast material has passed the ileostomy bag. There is persistent gaseous small bowel distention although this is improved. Appearance is consistent with overall improvement but bowel gas pattern is not completely normalized. Upright examination at 24 hours demonstrates no pneumoperitoneum. No biliary or portal venous gas. There is no pneumatosis. IMPRESSION: 1. Passage of contrast material by 24 hours post ingestion. 2. Improved but not resolved gaseous small bowel distention as above Interpreted and Authenticated by: All Cormier 02/20/19
[2019-02-20] MEDS ORDERED: MAGNESIUM SULFATE 2 GM/50 ML BAG IV ONE ×2 (07:20→07:21)
[2019-02-20] MEDS ORDERED: POTASSIUM CHLORIDE 40 MEQ in DEXTROSE 5% IN WATER 250 ML IV ONE ×2 (07:20→07:21)
[2019-02-20] MEDS ORDERED: MAGNESIUM SULFATE 4 GM/100 ML BAG IV ONE ×2 (08:00)
[2019-02-20] MEDS: ERYTHROMYCIN BASE 250 MG TABLET PO SCH ×4 (09:01→20:44)
[2019-02-20] MEDS: DULoxetine 30 MG CAPSULE PO SCH ×2 (09:01→20:44)
[2019-02-20] MEDS: PYRIDOSTIGMINE 60 MG TABLET PO SCH ×2 (09:01→20:44)
[2019-02-20] MEDS: metFORMIN 500 MG TABLET PO SCH (09:01)
[2019-02-20] MEDS: MAGNESIUM OXIDE 400 MG TABLET PO SCH (09:01)
[2019-02-20] MEDS: POLYETHYLENE GLYCOL 3350 17 GM PACKET PO SCH ×2 (09:02→20:44)
[2019-02-20] MEDS: predniSONE 20 MG TABLET PO SCH (09:05)
[2019-02-20] MEDS: POTASSIUM CHLORIDE 40 MEQ in DEXTROSE 5% IN WATER 500 ML IV SCH ×2 (09:35→13:16)
[2019-02-20] MEDS: PROMETHAZINE 25 MG/ML VIAL IV PRN ×3 (09:58→22:47)
--- NOTE | 2019-02-20 15:29 | General Surgery Progress Note ---
Subjective Patient reports: feels better, pain is less, flatus, bowel movement, diarrhea, afebrile Narrative: Note initiated : 02/20/19 at 3:27 pm Service Date, if different from initiated Date: [] Patient: Dayanna Stephens 58 y/o F admitted on 02/19/19 for Abd Pain and Bloating. Chief Complaint: [Patient continues to improve. She has modest by mouth intake and has large volume output through her stoma. Her abdomen is much softer and flatter. She is tolerating soft diet without difficulty. She denies nausea.] Objective Temp Pulse Resp BP Pulse Ox 98 F 100 H 18 138/76 100 02/20/19 11:12 02/20/19 03:54 02/20/19 11:12 02/20/19 11:12 02/20/19 11:12 - Additional Data Intake & Output - Last 24 hours: Intake & Output 02/18/19 02/19/19 02/20/19 02/21/19 05:59 05:59 05:59 05:59 Intake Total 963 3860 4328 2519 Output Total 2000 3475 5000 2100 Balance -1037 385 -672 419 Weight 218 lb 216 lb 219 lb 8 oz - General physical appearance well developed, well nourished, no distress - Eyes PERRL, normal ocular movement - ENT normal pinna, normal nares, normal mucosa, no hearing loss, no congestion - Neck no masses, no bruits, trachea midline, no lymphadenopathy, no venous distension - Respiratory normal expansion, normal respiratory effort, clear to auscultation - Cardiovascular Cardiovascular exam: Present: normal rate and rhythm, RRR, +S1, +S2. Absent: JVD, tachycardia - Abdomen non tender, bowel sounds (present), surgical scars (none), wound (surgical stoma is unremarkable and is functioning well), masses (none) - Integumentary no rash, no growths, no abnormal pigmentation - Neurologic normal coordination, normal sensation - Musculoskeletal normal gait, normal posture - Psychiatric oriented to time, oriented to person, oriented to place, speech is normal, memory intact - Labs 02/20/19 04:11 02/20/19 04:11 Diabetes panel 02/20/19 Range/Units 04:11 Sodium 138 (133-145) mmol/L Potassium 2.9 L* (3.3-5.1) mmol/L Chloride 99 (96-108) mmol/L Carbon Dioxide 24 (22-30) mmol/L BUN 2 L (6-20) mg/dl Creatinine 0.6 (0.6-1.1) mg/dl Glucose 121 H (70-105) mg/dL Calcium 6.7 L (8.6-10.4) mg/dl AST 19 (0-37) U/l ALT 19 (0-40) U/l Alkaline Phosphatase 78 (39-117) U/L Total Protein 5.5 L (5.9-8.4) gm/dL Albumin 2.8 L (3.2-5.2) gm/dL Triglycerides 129 (<150) mg/dl Calcium panel 02/20/19 Range/Units 04:11 Calcium 6.7 L (8.6-10.4) mg/dl Phosphorus 3.8 (2.7-4.5) mg/dL Albumin 2.8 L (3.2-5.2) gm/dL Pituitary panel 02/20/19 Range/Units 04:11 Sodium 138 (133-145) mmol/L Potassium 2.9 L* (3.3-5.1) mmol/L Chloride 99 (96-108) mmol/L Carbon Dioxide 24 (22-30) mmol/L BUN 2 L (6-20) mg/dl Creatinine 0.6 (0.6-1.1) mg/dl Glucose 121 H (70-105) mg/dL Calcium 6.7 L (8.6-10.4) mg/dl Adrenal panel 02/20/19 Range/Units 04:11 Sodium 138 (133-145) mmol/L Potassium 2.9 L* (3.3-5.1) mmol/L Chloride 99 (96-108) mmol/L Carbon Dioxide 24 (22-30) mmol/L BUN 2 L (6-20) mg/dl Creatinine 0.6 (0.6-1.1) mg/dl Glucose 121 H (70-105) mg/dL Calcium 6.7 L (8.6-10.4) mg/dl Total Bilirubin 0.3 (0.0-1.0) mg/dL AST 19 (0-37) U/l ALT 19 (0-40) U/l Alkaline Phosphatase 78 (39-117) U/L Total Protein 5.5 L (5.9-8.4) gm/dL Albumin 2.8 L (3.2-5.2) gm/dL Assessment and Plan (1) Chronic intestinal pseudo-obstruction Status: Acute Assessment and plan: F/U ABDOMINAL X-RAYS IN A.M. RESTART ORAL MEDS Current Visit: No (2) Small bowel obstruction Status: Acute Current Visit: Yes - Time Spent With Patient Total time spent is greater than 50% in coordination of care (as documented) at patient's floor/unit and/or counseling patient:
[2019-02-20] MEDS ORDERED: ONDANSETRON 4 MG/2 ML VIAL ONE (18:13)
[2019-02-20] MEDS ORDERED: MAGNESIUM HYDROXIDE 30 ML ORAL.SUSP ONE (22:23)
[2019-02-20] MEDS: MAGNESIUM HYDROXIDE 30 ML ORAL.SUSP PO SCH (22:46)
[2019-02-21] MEDS ORDERED: ACETAMINOPHEN 1,000 MG/100 ML BOTTLE IV ONE (00:43)
[2019-02-21] MEDS: fentaNYL 100 MCG/2 ML VIAL IV PRN ×9 (00:51→21:01)
[2019-02-21] MEDS: ACETAMINOPHEN 1,000 MG/100 ML BOTTLE IV SCH ×4 (00:52→17:00)
[2019-02-21] MEDS ORDERED: MAGNESIUM HYDROXIDE 30 ML ORAL.SUSP ONE ×2 (02:46→04:49)
[2019-02-21] MEDS: MAGNESIUM HYDROXIDE 30 ML ORAL.SUSP PO SCH ×2 (02:50→04:48)
[2019-02-21] MEDS: PROMETHAZINE 25 MG/ML VIAL IV PRN ×4 (02:51→23:35)
[2019-02-21] MEDS: ONDANSETRON 4 MG/2 ML VIAL IV PRN ×2 (04:57→09:07)
[2019-02-21 05:43] LABS: Basophils # (Auto) 0 K/mcL (0.0-0.3); Basophils % (Auto) 0.2 % (0.0-2.0); Eosinophils # (Auto) 0 K/mcL (0.0-0.7); Eosinophils % (Auto) 0.3 % (0.0-7.0); Granulocytes % (Auto) 82.3 % (38.0-78.0); Lymphocytes # (Auto) 1.2 K/mcL (1.5-4.8); Lymphocytes % (Auto) 11.7 % (15.5-49.0); Mean Cell Volume 85.2 fL (80.0-100.0); Monocytes # (Auto) 0.6 K/mcL (0.1-0.9); Monocytes % (Auto) 5.5 % (1.0-12.0); Platelet Count 411 K/mcL (140-440); RBC 4.24 M/mcL (4.00-5.20); Red Cell Distribution Width 17.5 % (11.5-14.5)
[2019-02-21 05:57] LABS: ALT/SGPT 26 U/l (0-40); Albumin 3.1 gm/dL (3.2-5.2); Alkaline Phosphatase 87 U/L (39-117); Bilirubin,Direct < 0.2 mg/dL (0.0-0.3); Blood Urea Nitrogen < 2 mg/dl (6-20); Gamma Glutamyl Transpeptidase 17 U/L (5-36); Uric Acid 4.8 mg/dL (2.5-8.0)
[2019-02-21] MEDS: LEVOTHYROXINE 125 MCG TABLET PO SCH (07:04)
[2019-02-21] MEDS: OMEPRAZOLE 20 MG CAPSULE PO SCH ×2 (07:04→15:34)
[2019-02-21] MEDS: predniSONE 20 MG TABLET PO SCH (07:05)
[2019-02-21] MEDS: metFORMIN 500 MG TABLET PO SCH (07:05)
[2019-02-21] MEDS ORDERED: TPN PER PHARMACY IV SCH (08:53)
[2019-02-21] MEDS: MAGNESIUM OXIDE 400 MG TABLET PO SCH (09:08)
[2019-02-21] MEDS: PYRIDOSTIGMINE 60 MG TABLET PO SCH ×2 (09:08→22:43)
[2019-02-21] MEDS: DULoxetine 30 MG CAPSULE PO SCH ×2 (09:08→22:43)
[2019-02-21] MEDS: ERYTHROMYCIN BASE 250 MG TABLET PO SCH ×4 (09:08→22:43)
[2019-02-21] MEDS: POLYETHYLENE GLYCOL 3350 17 GM PACKET PO SCH ×2 (09:09→22:43)
--- NOTE | 2019-02-21 09:48 | XRay Report ---
CLINICAL INFORMATION: Small bowel obstruction. Follow-up TECHNIQUE: Supine and upright abdomen COMPARISON: Previous plain film examination dated 02/20/2019 (this was part of a small bowel contrast study started on 02/19/2019). Multiple prior plain film studies and CT scans FINDINGS: Esophagogastric tube in the stomach Persistent gas-filled dilated stomach and small bowel. Bowel gas pattern may be slightly worse than on 02/20/2019. There is been no interval improvement IMPRESSION: 1. Esophagogastric tube in the stomach 2. Persistent dilated gas-filled stomach and small bowel Interpreted and Authenticated by: All Cormier 02/21/19
[2019-02-21] MEDS ORDERED: DEXTROSE 50% 50 ML VIAL IV PRN (09:59)
--- NOTE | 2019-02-21 10:03 | XRay Report ---
CLINICAL INFORMATION: Nasogastric tube placement TECHNIQUE: AP abdomen COMPARISON: Multiple previous plain film examinations and CT scans FINDINGS: Esophagogastric tube in the stomach Dilated gas-filled stomach and small bowel consistent with mechanical small bowel obstruction or ileus. Examination is essentially unchanged since 02/20/2019 IMPRESSION: Esophagogastric tube in the stomach Interpreted and Authenticated by: All Cormier 02/21/19
[2019-02-21] MEDS ORDERED: MAGNESIUM SULFATE IV SCH (14:00)
[2019-02-21] MEDS ORDERED: SODIUM CHLORIDE IV SCH (14:00)
[2019-02-21] MEDS ORDERED: CALCIUM GLUCONATE IV SCH (14:00)
[2019-02-21] MEDS ORDERED: [UNRECOGNIZED DRUG - OTHER] IV SCH (14:00)
--- NOTE | 2019-02-21 14:39 | General Surgery Progress Note ---
Subjective Patient reports: still having pain, flatus, diarrhea, nausea, vomiting, afebrile Narrative: Note initiated : 02/21/19 at 2:37 pm Service Date, if different from initiated Date: [] Patient: Dayanna Stephens 58 y/o F admitted on 02/19/19 for Abd Pain and Bloating. Chief Complaint: [patient developed increased abdominal distention during the night. She had some decrease in output through her stoma and x-rays showed dilated stomach and small bowel. Nasogastric tube has been inserted and she feels better. She still has significant gas and stool output through her stoma at this time. She will be started on TPN and she is told that I'm considering long-term TPN so that we do not have to rapidly advance her diet.] Objective Temp Pulse Resp BP Pulse Ox 98.3 F 98 H 13 145/88 93 02/21/19 11:23 02/21/19 11:23 02/21/19 11:23 02/21/19 11:23 02/21/19 11:23 - Additional Data Intake & Output - Last 24 hours: Intake & Output 02/19/19 02/20/19 02/21/19 02/22/19 05:59 05:59 05:59 05:59 Intake Total 3860 4328 2844 200 Output Total 3475 5000 4725 1000 Balance 327 -140 -3192 -800 Weight 216 lb 219 lb 8 oz 221 lb 221 lb - General physical appearance well developed, well nourished, moderate distress, moderate pain - Eyes PERRL, normal ocular movement - ENT normal pinna, normal nares, normal mucosa, no hearing loss, no congestion - Neck no masses, no bruits, trachea midline, no lymphadenopathy, no venous distension - Respiratory normal expansion, normal respiratory effort, clear to auscultation - Cardiovascular Cardiovascular exam: Present: normal rate and rhythm, RRR, +S1, +S2. Absent: JVD, tachycardia - Abdomen distended (moderately distended abdomen with minimal tenderness; good active constance wel sounds; stoma plants with large volume of gas and moderate amount of liquid stool) - Integumentary no rash, no growths, no abnormal pigmentation - Neurologic normal coordination, normal sensation - Musculoskeletal normal gait, normal posture - Psychiatric oriented to time, oriented to person, oriented to place, speech is normal, memory intact - Labs 02/21/19 04:14 02/21/19 04:14 Diabetes panel 02/21/19 Range/Units 04:14 Sodium 137 (133-145) mmol/L Potassium 4.6 (3.3-5.1) mmol/L Chloride 101 (96-108) mmol/L Carbon Dioxide 23 (22-30) mmol/L BUN < 2 L (6-20) mg/dl Creatinine 0.7 (0.6-1.1) mg/dl Glucose 150 H (70-105) mg/dL Calcium 6.9 L (8.6-10.4) mg/dl AST 23 (0-37) U/l ALT 26 (0-40) U/l Alkaline Phosphatase 87 (39-117) U/L Total Protein 6.2 (5.9-8.4) gm/dL Albumin 3.1 L (3.2-5.2) gm/dL Triglycerides 100 (<150) mg/dl Calcium panel 02/21/19 Range/Units 04:14 Calcium 6.9 L (8.6-10.4) mg/dl Phosphorus 3.1 (2.7-4.5) mg/dL Albumin 3.1 L (3.2-5.2) gm/dL Pituitary panel 02/21/19 Range/Units 04:14 Sodium 137 (133-145) mmol/L Potassium 4.6 (3.3-5.1) mmol/L Chloride 101 (96-108) mmol/L Carbon Dioxide 23 (22-30) mmol/L BUN < 2 L (6-20) mg/dl Creatinine 0.7 (0.6-1.1) mg/dl Glucose 150 H (70-105) mg/dL Calcium 6.9 L (8.6-10.4) mg/dl Adrenal panel 02/21/19 Range/Units 04:14 Sodium 137 (133-145) mmol/L Potassium 4.6 (3.3-5.1) mmol/L Chloride 101 (96-108) mmol/L Carbon Dioxide 23 (22-30) mmol/L BUN < 2 L (6-20) mg/dl Creatinine 0.7 (0.6-1.1) mg/dl Glucose 150 H (70-105) mg/dL Calcium 6.9 L (8.6-10.4) mg/dl Total Bilirubin 0.2 (0.0-1.0) mg/dL AST 23 (0-37) U/l ALT 26 (0-40) U/l Alkaline Phosphatase 87 (39-117) U/L Total Protein 6.2 (5.9-8.4) gm/dL Albumin 3.1 L (3.2-5.2) gm/dL Assessment and Plan (1) Chronic intestinal pseudo-obstruction Status: Acute Assessment and plan: F/U ABDOMINAL X-RAYS IN A.M. Nasogastric suction. Start TPN. Give appropriate meds. IV Hold other meds for another 24 hours. Current Visit: No (2) Small bowel obstruction Status: Acute Current Visit: Yes - Time Spent With Patient Total time spent is greater than 50% in coordination of care (as documented) at patient's floor/unit and/or counseling patient:
[2019-02-21] MEDS: PANTOPRAZOLE 40 MG VIAL IV SCH (17:00)
[2019-02-21] MEDS: INSULIN LISPRO 1 UNIT/0.01 ML UNIT SQ SCH ×2 (17:12→23:50)
[2019-02-21] MEDS ORDERED: CALCIUM GLUCONATE 4.65 MEQ/10 ML VIAL IV SCH (21:00)
[2019-02-21] MEDS: methylPREDNISolone SOD SUCC 125 MG/2 ML VIAL IV SCH (21:02)
[2019-02-21] MEDS: CALCIUM GLUCONATE 9.3 MEQ in DEXTROSE 5% IN WATER 50 ML IV SCH (21:20)
[2019-02-22] MEDS: ACETAMINOPHEN 1,000 MG/100 ML BOTTLE IV SCH ×4 (01:34→17:26)
[2019-02-22] MEDS: fentaNYL 100 MCG/2 ML VIAL IV PRN ×4 (05:11→20:48)
[2019-02-22 05:51] LABS: Basophils # (Auto) 0 K/mcL (0.0-0.3); Basophils % (Auto) 0.2 % (0.0-2.0); Eosinophils # (Auto) 0 K/mcL (0.0-0.7); Eosinophils % (Auto) 0 % (0.0-7.0); Granulocytes % (Auto) 85.8 % (38.0-78.0); Lymphocytes # (Auto) 0.9 K/mcL (1.5-4.8); Lymphocytes % (Auto) 13.4 % (15.5-49.0); Mean Cell Volume 84.5 fL (80.0-100.0); Mean Corpuscular HGB Conc 31.8 g/dL (31.0-36.0); Monocytes # (Auto) 0 K/mcL (0.1-0.9); Monocytes % (Auto) 0.6 % (1.0-12.0); Platelet Count 446 K/mcL (140-440); Red Cell Distribution Width 17.5 % (11.5-14.5)
[2019-02-22 06:12] LABS: ALT/SGPT 23 U/l (0-40); Albumin 3.2 gm/dL (3.2-5.2); Alkaline Phosphatase 91 U/L (39-117); Bilirubin,Direct < 0.2 mg/dL (0.0-0.3); Blood Urea Nitrogen 4 mg/dl (6-20); Gamma Glutamyl Transpeptidase 19 U/L (5-36); Uric Acid 3.8 mg/dL (2.5-8.0)
[2019-02-22] MEDS: INSULIN LISPRO 1 UNIT/0.01 ML UNIT SQ SCH ×3 (06:20→17:25)
[2019-02-22] MEDS: PANTOPRAZOLE 40 MG VIAL IV SCH ×2 (07:28→17:24)
[2019-02-22] MEDS: LEVOTHYROXINE 100 MCG VIAL IV SCH (07:29)
[2019-02-22] MEDS: methylPREDNISolone SOD SUCC 125 MG/2 ML VIAL IV SCH ×2 (07:29→20:49)
[2019-02-22] MEDS: metFORMIN 500 MG TABLET PO SCH (07:30)
[2019-02-22] MEDS: ERYTHROMYCIN BASE 250 MG TABLET PO SCH ×5 (07:31→20:50)
[2019-02-22] MEDS: MAGNESIUM OXIDE 400 MG TABLET PO SCH (07:31)
[2019-02-22] MEDS: DULoxetine 30 MG CAPSULE PO SCH ×2 (07:31→20:50)
[2019-02-22] MEDS: POLYETHYLENE GLYCOL 3350 17 GM PACKET PO SCH ×3 (07:31→20:50)
[2019-02-22] MEDS: PYRIDOSTIGMINE 60 MG TABLET PO SCH ×3 (07:31→20:49)
[2019-02-22] MEDS: PROMETHAZINE 25 MG/ML VIAL IV PRN ×3 (09:33→22:58)
[2019-02-22] MEDS: CALCIUM GLUCONATE 9.3 MEQ in DEXTROSE 5% IN WATER 50 ML IV SCH ×2 (09:33→20:47)
--- NOTE | 2019-02-22 10:01 | XRay Report ---
CLINICAL INFORMATION: Small bowel obstruction TECHNIQUE: AP supine and upright abdomen COMPARISON: Multiple previous examinations. Most recent studies are dated 02/21/2019 02/19/2019. FINDINGS: No change in position of esophagogastric tube. Gas-filled dilated small bowel is essentially unchanged since 02/21/2019. No pneumoperitoneum. No biliary or portal venous gas. IMPRESSION: 1. Persistent gas-filled dilated small bowel 2. No significant interval change since 02/21/2019 Interpreted and Authenticated by: All Cormier 02/22/19
--- NOTE | 2019-02-22 14:12 | General Surgery Progress Note ---
Subjective Patient reports: feels better, pain is less, flatus, no bowel movement, afebrile Narrative: Note initiated : 02/22/19 at 2:11 pm Service Date, if different from initiated Date: [] Patient: Dayanna Stephens 58 y/o F admitted on 02/19/19 for Abd Pain and Bloating. Chief Complaint: [Patient is stable. She has decreased output through her stoma over the last 8 hours. She has a small amount of gas but no stool. Her abdominal x-rays are unchanged from yesterday. NG suction volume is decreasing.] Objective Temp Pulse Resp BP Pulse Ox 97.6 F 85 12 154/93 92 02/22/19 11:41 02/22/19 06:47 02/22/19 11:41 02/22/19 11:41 02/22/19 11:41 - Additional Data Intake & Output - Last 24 hours: Intake & Output 02/20/19 02/21/19 02/22/19 02/23/19 05:59 05:59 05:59 05:59 Intake Total 4328 2844 480 320 Output Total 5000 4725 3600 700 Balance -672 -1881 -3120 -380 Weight 219 lb 8 oz 221 lb 221 lb - General physical appearance well developed, well nourished, no distress - Eyes PERRL, normal ocular movement - ENT normal pinna, normal nares, normal mucosa, no hearing loss, no congestion - Neck no masses, no bruits, trachea midline, no lymphadenopathy, no venous distension - Respiratory normal expansion, normal respiratory effort, clear to auscultation - Cardiovascular Cardiovascular exam: Present: normal rate and rhythm, RRR, +S1, +S2. Absent: JVD, tachycardia - Abdomen non tender (abdomen is nontender; she does not have any increased distention. She has good active bowel sounds) - Integumentary no rash, no growths, no abnormal pigmentation - Neurologic normal coordination, normal sensation - Musculoskeletal normal gait, normal posture - Psychiatric oriented to time, oriented to person, oriented to place, speech is normal, memory intact - Labs 02/22/19 04:48 02/22/19 04:48 Diabetes panel 02/22/19 Range/Units 04:48 Sodium 140 (133-145) mmol/L Potassium 4.6 (3.3-5.1) mmol/L Chloride 101 (96-108) mmol/L Carbon Dioxide 25 (22-30) mmol/L BUN 4 L (6-20) mg/dl Creatinine 0.8 (0.6-1.1) mg/dl Glucose 215 H (70-105) mg/dL Calcium 7.4 L (8.6-10.4) mg/dl AST 14 (0-37) U/l ALT 23 (0-40) U/l Alkaline Phosphatase 91 (39-117) U/L Total Protein 6.5 (5.9-8.4) gm/dL Albumin 3.2 (3.2-5.2) gm/dL Triglycerides 115 (<150) mg/dl Calcium panel 02/22/19 Range/Units 04:48 Calcium 7.4 L (8.6-10.4) mg/dl Phosphorus 4.3 (2.7-4.5) mg/dL Albumin 3.2 (3.2-5.2) gm/dL Pituitary panel 02/22/19 Range/Units 04:48 Sodium 140 (133-145) mmol/L Potassium 4.6 (3.3-5.1) mmol/L Chloride 101 (96-108) mmol/L Carbon Dioxide 25 (22-30) mmol/L BUN 4 L (6-20) mg/dl Creatinine 0.8 (0.6-1.1) mg/dl Glucose 215 H (70-105) mg/dL Calcium 7.4 L (8.6-10.4) mg/dl Adrenal panel 02/22/19 Range/Units 04:48 Sodium 140 (133-145) mmol/L Potassium 4.6 (3.3-5.1) mmol/L Chloride 101 (96-108) mmol/L Carbon Dioxide 25 (22-30) mmol/L BUN 4 L (6-20) mg/dl Creatinine 0.8 (0.6-1.1) mg/dl Glucose 215 H (70-105) mg/dL Calcium 7.4 L (8.6-10.4) mg/dl Total Bilirubin 0.2 (0.0-1.0) mg/dL AST 14 (0-37) U/l ALT 23 (0-40) U/l Alkaline Phosphatase 91 (39-117) U/L Total Protein 6.5 (5.9-8.4) gm/dL Albumin 3.2 (3.2-5.2) gm/dL Assessment and Plan (1) Chronic intestinal pseudo-obstruction Status: Acute Assessment and plan: F/U ABDOMINAL X-RAYS IN A.M. Nasogastric suction. Start TPN. Give appropriate meds. IV Hold other meds for another 24 hours. Current Visit: No (2) Small bowel obstruction Status: Acute Assessment and plan: We'll give trial of medication orally with nasogastric tube clamped and then placing tube to suction 6 hours. Current Visit: Yes - Time Spent With Patient Total time spent is greater than 50% in coordination of care (as documented) at patient's floor/unit and/or counseling patient:
[2019-02-22] MEDS: CALCIUM GLUCONATE IV SCH (14:45)
[2019-02-22] MEDS: MAGNESIUM SULFATE IV SCH (14:45)
[2019-02-22] MEDS: [UNRECOGNIZED DRUG - OTHER] IV SCH (14:45)
[2019-02-22] MEDS: SODIUM CHLORIDE IV SCH (14:45)
[2019-02-22] MEDS ORDERED: 0.9 % SODIUM CHLORIDE 1,000 ML BAG IV SCH (16:00)
[2019-02-22] MEDS: 0.9 % SODIUM CHLORIDE 1,000 ML IV SCH (16:05)
[2019-02-23] MEDS: ACETAMINOPHEN 1,000 MG/100 ML BOTTLE IV SCH ×3 (00:28→11:36)
[2019-02-23] MEDS: INSULIN LISPRO 1 UNIT/0.01 ML UNIT SQ SCH ×4 (00:39→17:52)
[2019-02-23] MEDS: 0.9 % SODIUM CHLORIDE 1,000 ML IV SCH ×2 (02:31→13:12)
[2019-02-23] MEDS: fentaNYL 100 MCG/2 ML VIAL IV PRN ×4 (04:02→21:04)
[2019-02-23] MEDS: ONDANSETRON 4 MG/2 ML VIAL IV PRN (04:19)
[2019-02-23] MEDS: PANTOPRAZOLE 40 MG VIAL IV SCH ×3 (07:02→21:06)
[2019-02-23] MEDS: PROMETHAZINE 25 MG/ML VIAL IV PRN ×2 (07:04→17:54)
[2019-02-23] MEDS: LEVOTHYROXINE 100 MCG VIAL IV SCH (07:04)
[2019-02-23 08:18] LABS: ALT/SGPT 17 U/l (0-40); Albumin 3.2 gm/dL (3.2-5.2); Albumin/Globulin Ratio 1.2 (1.0-2.3); Alkaline Phosphatase 79 U/L (39-117); Bilirubin,Direct < 0.2 mg/dL (0.0-0.3); Blood Urea Nitrogen 10 mg/dl (6-20); Gamma Glutamyl Transpeptidase 16 U/L (5-36); Uric Acid 2.6 mg/dL (2.5-8.0)
[2019-02-23] MEDS: POLYETHYLENE GLYCOL 3350 17 GM PACKET PO SCH ×2 (09:32→21:06)
[2019-02-23] MEDS: PYRIDOSTIGMINE 60 MG TABLET PO SCH (09:33)
[2019-02-23] MEDS: DULoxetine 30 MG CAPSULE PO SCH ×2 (09:33→21:04)
[2019-02-23] MEDS: ERYTHROMYCIN BASE 250 MG TABLET PO SCH ×4 (09:33→21:04)
[2019-02-23] MEDS: CALCIUM GLUCONATE 9.3 MEQ in DEXTROSE 5% IN WATER 50 ML IV SCH ×2 (09:34→21:06)
[2019-02-23] MEDS: methylPREDNISolone SOD SUCC 125 MG/2 ML VIAL IV SCH ×2 (09:34→21:05)
[2019-02-23] MEDS: MAGNESIUM SULFATE IV SCH ×2 (09:35→09:59)
[2019-02-23] MEDS: CALCIUM GLUCONATE IV SCH ×2 (09:35→09:59)
[2019-02-23] MEDS: [UNRECOGNIZED DRUG - OTHER] IV SCH (09:35)
[2019-02-23] MEDS: SODIUM CHLORIDE IV SCH ×2 (09:35→09:59)
--- NOTE | 2019-02-23 09:40 | XRay Report ---
CLINICAL INFORMATION: Small bowel obstruction COMPARISON: 02/22/2019 FINDINGS: NG tube remains a stable position with the tip overlying expected location of the gastric body. There are multiple loops of mildly dilated small bowel and the central abdomen demonstrating air-fluid levels in the upright film. Distal small bowel is decompressed. No free air or soft tissue mass. IMPRESSION: Partial small bowel obstruction pattern is stable Interpreted and Authenticated by: All Lundberg 02/23/19
[2019-02-23] MEDS: [UNRECOGNIZED DRUG - OTHER] IV SCH (09:59)
[2019-02-23] MEDS: BENZOCAINE 1 SPRAY BOTTLE TOPICAL PRN (14:26)
[2019-02-23] MEDS ORDERED: FAT EMULSION 20% 250 ML in PREMIX 1 BAG IV SCH (16:00)
--- NOTE | 2019-02-23 17:58 | General Surgery Progress Note ---
Subjective Patient reports: feels better, pain is less, flatus, bowel movement, diarrhea, nausea, afebrile Narrative: Note initiated : 02/23/19 at 5:56 pm Service Date, if different from initiated Date: [] Patient: Dayanna Stephens 58 y/o F admitted on 02/19/19 for Abd Pain and Bloating. Chief Complaint: [Patient is gradually improving. Her abdominal distention is less. X-rays shows persistent dilation of small bowel with areas of decreased dilation in the mid and distal bowel. She has some nausea but is very mild. She is tolerating having her nasogastric tube clamped intermittently. Will discuss with radiology the possibility of going a retrograde contrast study of her terminal ileum to see if there is distal obstruction.] Objective Temp Pulse Resp BP Pulse Ox 99.1 F H 76 18 164/86 93 02/23/19 16:00 02/23/19 16:00 02/23/19 16:00 02/23/19 16:00 02/23/19 16:00 - Additional Data Intake & Output - Last 24 hours: Intake & Output 02/21/19 02/22/19 02/23/19 02/24/19 05:59 05:59 05:59 05:59 Intake Total 2844 480 1720 1370 Output Total 4725 3600 3225 2580 Balance -1881 -3120 -1505 -1210 Weight 221 lb 221 lb 215 lb - General physical appearance well developed, well nourished, no distress - Eyes PERRL, normal ocular movement - ENT normal pinna, normal nares, normal mucosa, no hearing loss, no congestion - Neck no masses, no bruits, trachea midline, no lymphadenopathy, no venous distension - Respiratory normal expansion, normal respiratory effort, clear to auscultation - Cardiovascular Cardiovascular exam: Present: normal rate and rhythm, RRR, +S1, +S2. Absent: JVD, tachycardia - Abdomen non tender, bowel sounds (present), surgical scars (none), masses (none) - Integumentary no rash, no growths, no abnormal pigmentation - Neurologic normal coordination, normal sensation - Musculoskeletal normal gait, normal posture - Psychiatric oriented to time, oriented to person, oriented to place, speech is normal, memory intact - Labs 02/22/19 04:48 02/23/19 07:09 Diabetes panel 02/23/19 Range/Units 07:09 Sodium 141 (133-145) mmol/L Potassium 4.2 (3.3-5.1) mmol/L Chloride 104 (96-108) mmol/L Carbon Dioxide 25 (22-30) mmol/L BUN 10 (6-20) mg/dl Creatinine 0.7 (0.6-1.1) mg/dl Glucose 164 H (70-105) mg/dL Calcium 7.9 L (8.6-10.4) mg/dl AST 10 (0-37) U/l ALT 17 (0-40) U/l Alkaline Phosphatase 79 (39-117) U/L Total Protein 5.9 (5.9-8.4) gm/dL Albumin 3.2 (3.2-5.2) gm/dL Triglycerides 169 H (<150) mg/dl Calcium panel 02/23/19 Range/Units 07:09 Calcium 7.9 L (8.6-10.4) mg/dl Phosphorus 3.9 (2.7-4.5) mg/dL Albumin 3.2 (3.2-5.2) gm/dL Pituitary panel 02/23/19 Range/Units 07:09 Sodium 141 (133-145) mmol/L Potassium 4.2 (3.3-5.1) mmol/L Chloride 104 (96-108) mmol/L Carbon Dioxide 25 (22-30) mmol/L BUN 10 (6-20) mg/dl Creatinine 0.7 (0.6-1.1) mg/dl Glucose 164 H (70-105) mg/dL Calcium 7.9 L (8.6-10.4) mg/dl Adrenal panel 02/23/19 Range/Units 07:09 Sodium 141 (133-145) mmol/L Potassium 4.2 (3.3-5.1) mmol/L Chloride 104 (96-108) mmol/L Carbon Dioxide 25 (22-30) mmol/L BUN 10 (6-20) mg/dl Creatinine 0.7 (0.6-1.1) mg/dl Glucose 164 H (70-105) mg/dL Calcium 7.9 L (8.6-10.4) mg/dl Total Bilirubin < 0.2 (0.0-1.0) mg/dL AST 10 (0-37) U/l ALT 17 (0-40) U/l Alkaline Phosphatase 79 (39-117) U/L Total Protein 5.9 (5.9-8.4) gm/dL Albumin 3.2 (3.2-5.2) gm/dL Assessment and Plan (1) Chronic intestinal pseudo-obstruction Status: Acute Assessment and plan: F/U ABDOMINAL X-RAYS IN A.M. Nasogastric suction. Start TPN. Give appropriate meds. IV Hold other meds for another 24 hours. Current Visit: No (2) Small bowel obstruction Status: Acute Assessment and plan: We'll give trial of medication orally with nasogastric tube clamped and then placing tube to suction 6 hours. Current Visit: Yes - Time Spent With Patient Total time spent is greater than 50% in coordination of care (as documented) at patient's floor/unit and/or counseling patient:
[2019-02-23] MEDS ORDERED: PYRIDOSTIGMINE BROMIDE 5 MG/ML IM SCH (18:00)
[2019-02-24] MEDS: PROMETHAZINE 25 MG/ML VIAL IV PRN (00:26)
[2019-02-24] MEDS: 0.9 % SODIUM CHLORIDE 1,000 ML IV SCH ×4 (00:26→23:44)
[2019-02-24] MEDS: INSULIN LISPRO 1 UNIT/0.01 ML UNIT SQ SCH ×5 (00:33→23:48)
[2019-02-24] MEDS: fentaNYL 100 MCG/2 ML VIAL IV PRN ×5 (04:12→19:41)
[2019-02-24 05:55] LABS: Prealbumin 24.2 mg/dl (20-40)
[2019-02-24 06:08] LABS: ALT/SGPT 22 U/l (0-40); Albumin 3.2 gm/dL (3.2-5.2); Albumin/Globulin Ratio 1.1 (1.0-2.3); Alkaline Phosphatase 79 U/L (39-117); Bilirubin,Direct < 0.2 mg/dL (0.0-0.3); Blood Urea Nitrogen 14 mg/dl (6-20); Gamma Glutamyl Transpeptidase 18 U/L (5-36)
--- NOTE | 2019-02-24 06:42 | XRay Report ---
CLINICAL INFORMATION: Small bowel obstruction COMPARISON: 02/23/2019 FINDINGS: NG tube overlies the gastric body and stable position. The stomach and small bowel are now completely decompressed. No free air, soft tissue mass or organomegaly IMPRESSION: Complete interval resolution in small bowel obstruction pattern. Negative exam Interpreted and Authenticated by: All Lundberg 02/24/19
[2019-02-24] MEDS: PANTOPRAZOLE 40 MG VIAL IV SCH ×2 (08:41→21:24)
[2019-02-24] MEDS: LEVOTHYROXINE 100 MCG VIAL IV SCH (08:42)
[2019-02-24] MEDS: methylPREDNISolone SOD SUCC 125 MG/2 ML VIAL IV SCH ×2 (08:43→21:23)
[2019-02-24] MEDS: PYRIDOSTIGMINE BROMIDE 5 MG/ML IM SCH ×2 (08:44→21:32)
[2019-02-24] MEDS: CALCIUM GLUCONATE 9.3 MEQ in DEXTROSE 5% IN WATER 50 ML IV SCH ×2 (08:44→21:33)
[2019-02-24] MEDS: ERYTHROMYCIN BASE 250 MG TABLET PO SCH ×2 (08:44→21:24)
[2019-02-24] MEDS: POLYETHYLENE GLYCOL 3350 17 GM PACKET PO SCH ×2 (08:44→21:25)
[2019-02-24] MEDS: DULoxetine 30 MG CAPSULE PO SCH ×2 (08:45→21:24)
[2019-02-24] MEDS ORDERED: PYRIDOSTIGMINE BROMIDE 5 MG/ML IM SCH (09:00)
[2019-02-24] MEDS: [UNRECOGNIZED DRUG - OTHER] IV SCH (10:00)
[2019-02-24] MEDS: SODIUM CHLORIDE IV SCH (10:00)
[2019-02-24] MEDS: CALCIUM GLUCONATE IV SCH (10:00)
[2019-02-24] MEDS: MAGNESIUM SULFATE IV SCH (10:00)
[2019-02-24] MEDS ORDERED: MAGNESIUM SULFATE 32.48 MEQ in DEXTROSE 5% IN WATER 50 ML IV ONE (14:41)
[2019-02-24] MEDS ORDERED: MAGNESIUM SULFATE 4 GM/100 ML BAG IV ONE (15:00)
--- NOTE | 2019-02-24 15:24 | General Surgery Progress Note ---
Subjective Patient reports: feels better, pain is less, tolerating liquids well, flatus, bowel movement, diarrhea, afebrile Narrative: Note initiated : 02/24/19 at 3:20 pm Service Date, if different from initiated Date: [] Patient: Dayanna Stephens 58 y/o F admitted on 02/19/19 for Abd Pain and Bloating. Chief Complaint: [patient is doing well. She has multiple large liquid bowel movements after the IM injection of pyridostigmine. She has cleared all of the gas from her GI tract. She no longer has nausea. She has minimal pain. Potassium 4.2, BUN 14, creatinine 0.6, magnesium 1.6.] Objective Temp Pulse Resp BP Pulse Ox 97.6 F 106 H 18 158/89 96 02/24/19 12:00 02/24/19 12:00 02/24/19 12:00 02/24/19 12:00 02/24/19 12:00 - Additional Data Intake & Output - Last 24 hours: Intake & Output 02/22/19 02/23/19 02/24/19 02/25/19 05:59 05:59 05:59 05:59 Intake Total 480 1720 2650 3931 Output Total 3600 3225 5580 2250 Balance -3120 -1505 -2930 1681 Weight 221 lb 215 lb 209 lb 8 oz 209 lb 8 oz - General physical appearance well developed, well nourished, no distress - Eyes PERRL, normal ocular movement - ENT normal pinna, normal nares, normal mucosa, no hearing loss, no congestion - Neck no masses, no bruits, trachea midline, no lymphadenopathy, no venous distension - Respiratory normal expansion, normal respiratory effort, clear to auscultation - Cardiovascular Cardiovascular exam: Present: normal rate and rhythm, RRR, +S1, +S2. Absent: bradycardia, JVD, tachycardia - Abdomen non tender, bowel sounds (present), surgical scars (none), masses (none), distended (no distention noted; stoma is functioning normally) - Integumentary no rash, no growths, no abnormal pigmentation - Neurologic normal coordination, normal sensation - Musculoskeletal normal gait, normal posture - Psychiatric oriented to time, oriented to person, oriented to place, speech is normal, memory intact - Labs 02/22/19 04:48 02/24/19 03:55 Diabetes panel 02/24/19 Range/Units 03:55 Sodium 139 (133-145) mmol/L Potassium 4.4 (3.3-5.1) mmol/L Chloride 102 (96-108) mmol/L Carbon Dioxide 25 (22-30) mmol/L BUN 14 (6-20) mg/dl Creatinine 0.6 (0.6-1.1) mg/dl Glucose 291 H (70-105) mg/dL Calcium 8.5 L (8.6-10.4) mg/dl AST 21 (0-37) U/l ALT 22 (0-40) U/l Alkaline Phosphatase 79 (39-117) U/L Total Protein 6.0 (5.9-8.4) gm/dL Albumin 3.2 (3.2-5.2) gm/dL Triglycerides 159 H (<150) mg/dl Calcium panel 02/24/19 Range/Units 03:55 Calcium 8.5 L (8.6-10.4) mg/dl Phosphorus 3.4 (2.7-4.5) mg/dL Albumin 3.2 (3.2-5.2) gm/dL Pituitary panel 02/24/19 Range/Units 03:55 Sodium 139 (133-145) mmol/L Potassium 4.4 (3.3-5.1) mmol/L Chloride 102 (96-108) mmol/L Carbon Dioxide 25 (22-30) mmol/L BUN 14 (6-20) mg/dl Creatinine 0.6 (0.6-1.1) mg/dl Glucose 291 H (70-105) mg/dL Calcium 8.5 L (8.6-10.4) mg/dl Adrenal panel 02/24/19 Range/Units 03:55 Sodium 139 (133-145) mmol/L Potassium 4.4 (3.3-5.1) mmol/L Chloride 102 (96-108) mmol/L Carbon Dioxide 25 (22-30) mmol/L BUN 14 (6-20) mg/dl Creatinine 0.6 (0.6-1.1) mg/dl Glucose 291 H (70-105) mg/dL Calcium 8.5 L (8.6-10.4) mg/dl Total Bilirubin < 0.2 (0.0-1.0) mg/dL AST 21 (0-37) U/l ALT 22 (0-40) U/l Alkaline Phosphatase 79 (39-117) U/L Total Protein 6.0 (5.9-8.4) gm/dL Albumin 3.2 (3.2-5.2) gm/dL Assessment and Plan (1) Chronic intestinal pseudo-obstruction Status: Acute Assessment and plan: F/U ABDOMINAL X-RAYS IN A.M. TPN. Give appropriate meds. IV Abdominal x-rays in the morning Current Visit: No (2) Small bowel obstruction Status: Acute Assessment and plan: Repeat trial of full liquids Current Visit: Yes - Time Spent With Patient Total time spent is greater than 50% in coordination of care (as documented) at patient's floor/unit and/or counseling patient:
[2019-02-24] MEDS: oxyCODONE/APAP 10/325MG TABLET PO PRN ×2 (16:19→22:01)
[2019-02-24] MEDS: CYCLOBENZAPRINE 10 MG TABLET PO PRN (19:11)
[2019-02-25] MEDS: 0.9 % SODIUM CHLORIDE 1,000 ML IV SCH ×2 (02:45→09:52)
[2019-02-25] MEDS: oxyCODONE/APAP 10/325MG TABLET PO PRN ×4 (03:54→22:19)
[2019-02-25] MEDS: INSULIN LISPRO 1 UNIT/0.01 ML UNIT SQ SCH ×3 (05:56→17:14)
[2019-02-25 06:15] LABS: Prealbumin 31.9 mg/dl (20-40)
[2019-02-25 06:20] LABS: ALT/SGPT 33 U/l (0-40); Albumin 3.3 gm/dL (3.2-5.2); Albumin/Globulin Ratio 1.1 (1.0-2.3); Alkaline Phosphatase 87 U/L (39-117); Bilirubin,Direct < 0.2 mg/dL (0.0-0.3); Blood Urea Nitrogen 17 mg/dl (6-20); Gamma Glutamyl Transpeptidase 25 U/L (5-36); Uric Acid 2.1 mg/dL (2.5-8.0)
[2019-02-25 06:32] LABS: Basophils # (Auto) 0 K/mcL (0.0-0.3); Basophils % (Auto) 0.1 % (0.0-2.0); Eosinophils # (Auto) 0 K/mcL (0.0-0.7); Eosinophils % (Auto) 0 % (0.0-7.0); Granulocytes % (Auto) 88.1 % (38.0-78.0); Lymphocytes # (Auto) 0.9 K/mcL (1.5-4.8); Mean Cell Volume 85.2 fL (80.0-100.0); Mean Corpuscular HGB Conc 31.6 g/dL (31.0-36.0); Monocytes # (Auto) 0.3 K/mcL (0.1-0.9); Monocytes % (Auto) 2.8 % (1.0-12.0); Platelet Count 439 K/mcL (140-440); RBC 4.37 M/mcL (4.00-5.20); Red Cell Distribution Width 17.3 % (11.5-14.5)
--- NOTE | 2019-02-25 07:00 | XRay Report ---
CLINICAL INFORMATION: FOLLOW -UP OF SMALL BOWEL OBSTRUCTION COMPARISON: 02/24/2019 FINDINGS: NG tube now out. Stool gas pattern is unremarkable. No free air, soft tissue mass or pathologic calcification. No organomegaly IMPRESSION: NG tube is now out. Negative exam. Interpreted and Authenticated by: All Lundberg 02/25/19
[2019-02-25] MEDS: LEVOTHYROXINE 100 MCG VIAL IV SCH (07:51)
[2019-02-25] MEDS: fentaNYL 100 MCG/2 ML VIAL IV PRN ×2 (08:07→13:15)
[2019-02-25] MEDS ORDERED: CALCIUM GLUCONATE 4.65 MEQ/10 ML VIAL ONE (09:27)
[2019-02-25] MEDS: methylPREDNISolone SOD SUCC 125 MG/2 ML VIAL IV SCH ×2 (09:52→20:23)
[2019-02-25] MEDS: CALCIUM GLUCONATE 9.3 MEQ in DEXTROSE 5% IN WATER 50 ML IV SCH ×2 (09:52→20:23)
[2019-02-25] MEDS: PYRIDOSTIGMINE BROMIDE 5 MG/ML IM SCH ×2 (09:53→20:23)
[2019-02-25] MEDS: POLYETHYLENE GLYCOL 3350 17 GM PACKET PO SCH ×2 (09:53→20:23)
[2019-02-25] MEDS: ERYTHROMYCIN BASE 250 MG TABLET PO SCH ×2 (09:53→20:24)
[2019-02-25] MEDS: PANTOPRAZOLE 40 MG VIAL IV SCH ×2 (09:53→20:23)
[2019-02-25] MEDS: DULoxetine 30 MG CAPSULE PO SCH ×2 (09:54→20:24)
[2019-02-25] MEDS ORDERED: 0.9 % SODIUM CHLORIDE 1,000 ML IV SCH (10:27)
[2019-02-25] MEDS: SODIUM CHLORIDE IV SCH (10:56)
[2019-02-25] MEDS: [UNRECOGNIZED DRUG - OTHER] IV SCH (10:56)
[2019-02-25] MEDS: MAGNESIUM SULFATE IV SCH (10:56)
[2019-02-25] MEDS: CALCIUM GLUCONATE IV SCH (10:56)
--- NOTE | 2019-02-25 15:01 | General Surgery Progress Note ---
Subjective Patient reports: feels better, pain is less, tolerating a regular diet, flatus, bowel movement, diarrhea, afebrile Narrative: Note initiated : 02/25/19 at 2:58 pm Service Date, if different from initiated Date: [] Patient: Dayanna Stephens 58 y/o F admitted on 02/19/19 for Abd Pain and Bloating. Chief Complaint: [patient is doing very well. She has tolerated liquids and a regular diet without abdominal pain, nausea or vomiting. She is having regular bowel movements via her stoma. She does not have any abdominal distention. Abdominal x-rays shows normal bowel gas pattern with no significantly dilated small bowel loops or stomach.] Objective Temp Pulse Resp BP Pulse Ox 97.6 F 107 H 18 163/91 93 02/25/19 12:00 02/25/19 12:00 02/25/19 12:00 02/25/19 12:00 02/25/19 12:00 - Additional Data Intake & Output - Last 24 hours: Intake & Output 02/23/19 02/24/19 02/25/19 02/26/19 05:59 05:59 05:59 05:59 Intake Total 1720 2650 6051 2560 Output Total 3225 5580 7475 2100 Balance -6965 -4237 -3154 460 Weight 215 lb 209 lb 8 oz 210 lb 8 oz - General physical appearance well developed, well nourished, no distress - Eyes PERRL, normal ocular movement - ENT normal pinna, normal nares, normal mucosa, no hearing loss, no congestion - Neck no masses, no bruits, trachea midline, no lymphadenopathy, no venous distension - Respiratory normal expansion, normal respiratory effort, clear to auscultation - Cardiovascular Cardiovascular exam: Present: normal rate and rhythm, RRR, +S1, +S2. Absent: JVD, tachycardia - Abdomen non tender, bowel sounds (present), surgical scars (none), wound (ileostomy is functioning normally), masses (none) - Integumentary no rash, no growths, no abnormal pigmentation - Neurologic normal coordination, normal sensation - Musculoskeletal normal gait, normal posture - Psychiatric oriented to time, oriented to person, oriented to place, speech is normal, memory intact - Labs 02/25/19 03:50 02/25/19 03:50 Diabetes panel 02/25/19 Range/Units 03:50 Sodium 136 (133-145) mmol/L Potassium 4.9 (3.3-5.1) mmol/L Chloride 101 (96-108) mmol/L Carbon Dioxide 22 (22-30) mmol/L BUN 17 (6-20) mg/dl Creatinine 0.6 (0.6-1.1) mg/dl Glucose 266 H (70-105) mg/dL Calcium 8.8 (8.6-10.4) mg/dl AST 19 (0-37) U/l ALT 33 (0-40) U/l Alkaline Phosphatase 87 (39-117) U/L Total Protein 6.2 (5.9-8.4) gm/dL Albumin 3.3 (3.2-5.2) gm/dL Triglycerides 251 H (<150) mg/dl Calcium panel 02/25/19 Range/Units 03:50 Calcium 8.8 (8.6-10.4) mg/dl Phosphorus 3.3 (2.7-4.5) mg/dL Albumin 3.3 (3.2-5.2) gm/dL Pituitary panel 02/25/19 Range/Units 03:50 Sodium 136 (133-145) mmol/L Potassium 4.9 (3.3-5.1) mmol/L Chloride 101 (96-108) mmol/L Carbon Dioxide 22 (22-30) mmol/L BUN 17 (6-20) mg/dl Creatinine 0.6 (0.6-1.1) mg/dl Glucose 266 H (70-105) mg/dL Calcium 8.8 (8.6-10.4) mg/dl Adrenal panel 02/25/19 Range/Units 03:50 Sodium 136 (133-145) mmol/L Potassium 4.9 (3.3-5.1) mmol/L Chloride 101 (96-108) mmol/L Carbon Dioxide 22 (22-30) mmol/L BUN 17 (6-20) mg/dl Creatinine 0.6 (0.6-1.1) mg/dl Glucose 266 H (70-105) mg/dL Calcium 8.8 (8.6-10.4) mg/dl Total Bilirubin < 0.2 (0.0-1.0) mg/dL AST 19 (0-37) U/l ALT 33 (0-40) U/l Alkaline Phosphatase 87 (39-117) U/L Total Protein 6.2 (5.9-8.4) gm/dL Albumin 3.3 (3.2-5.2) gm/dL Assessment and Plan (1) Chronic intestinal pseudo-obstruction Status: Acute Assessment and plan: TPN. Continue pyridostigmine Im Abdominal x-rays in the morning Current Visit: No (2) Small bowel obstruction Status: Acute Assessment and plan: Advanced to regular diet Current Visit: Yes - Time Spent With Patient Total time spent is greater than 50% in coordination of care (as documented) at patient's floor/unit and/or counseling patient:
[2019-02-26] MEDS: INSULIN LISPRO 1 UNIT/0.01 ML UNIT SQ SCH ×4 (00:17→17:30)
[2019-02-26] MEDS: oxyCODONE/APAP 10/325MG TABLET PO PRN ×4 (03:50→23:27)
[2019-02-26] MEDS: CYCLOBENZAPRINE 10 MG TABLET PO PRN (05:29)
--- NOTE | 2019-02-26 06:33 | XRay Report ---
CLINICAL INFORMATION: FOLLOW -UP OF SMALL BOWEL OBSTRUCTION COMPARISON: 02/25/2019 FINDINGS: The GI tract is relatively decompressed with only minimal gas seen within the stomach, small large and bowel. No evidence of recurrent small bowel obstruction. No free air, soft tissue mass or organomegaly. IMPRESSION: Decompressed GI tract - no evidence of recurrent small bowel obstruction Interpreted and Authenticated by: All Lundberg 02/26/19
[2019-02-26 06:34] LABS: Basophils # (Auto) 0 K/mcL (0.0-0.3); Basophils % (Auto) 0 % (0.0-2.0); Eosinophils # (Auto) 0 K/mcL (0.0-0.7); Eosinophils % (Auto) 0 % (0.0-7.0); Granulocytes % (Auto) 88.6 % (38.0-78.0); Lymphocytes # (Auto) 0.9 K/mcL (1.5-4.8); Lymphocytes % (Auto) 7.6 % (15.5-49.0); Mean Cell Volume 85.6 fL (80.0-100.0); Mean Corpuscular HGB Conc 31.6 g/dL (31.0-36.0); Monocytes # (Auto) 0.4 K/mcL (0.1-0.9); Monocytes % (Auto) 3.8 % (1.0-12.0); Platelet Count 437 K/mcL (140-440); RBC 4.12 M/mcL (4.00-5.20); Red Cell Distribution Width 17.1 % (11.5-14.5)
[2019-02-26 06:41] LABS: Prealbumin 32.3 mg/dl (20-40)
[2019-02-26 07:14] LABS: ALT/SGPT 26 U/l (0-40); Albumin 3.2 gm/dL (3.2-5.2); Albumin/Globulin Ratio 1.3 (1.0-2.3); Alkaline Phosphatase 80 U/L (39-117); Bilirubin,Direct < 0.2 mg/dL (0.0-0.3); Blood Urea Nitrogen 26 mg/dl (6-20); Gamma Glutamyl Transpeptidase 27 U/L (5-36); Uric Acid 2.1 mg/dL (2.5-8.0)
[2019-02-26] MEDS: LEVOTHYROXINE 100 MCG VIAL IV SCH (07:41)
[2019-02-26] MEDS: fentaNYL 100 MCG/2 ML VIAL IV PRN ×5 (07:43→20:03)
[2019-02-26] MEDS: ERYTHROMYCIN BASE 250 MG TABLET PO SCH ×2 (08:54→20:15)
[2019-02-26] MEDS: DULoxetine 30 MG CAPSULE PO SCH ×2 (08:54→20:15)
[2019-02-26] MEDS: POLYETHYLENE GLYCOL 3350 17 GM PACKET PO SCH ×2 (08:55→20:11)
[2019-02-26] MEDS: methylPREDNISolone SOD SUCC 125 MG/2 ML VIAL IV SCH ×2 (08:56→20:16)
[2019-02-26] MEDS: PANTOPRAZOLE 40 MG VIAL IV SCH ×2 (08:56→20:17)
[2019-02-26] MEDS: CALCIUM GLUCONATE 9.3 MEQ in DEXTROSE 5% IN WATER 50 ML IV SCH ×2 (08:56→20:12)
[2019-02-26] MEDS: PYRIDOSTIGMINE BROMIDE 5 MG/ML IM SCH ×2 (08:57→20:18)
[2019-02-26] MEDS: SODIUM CHLORIDE IV SCH (10:31)
[2019-02-26] MEDS: [UNRECOGNIZED DRUG - OTHER] IV SCH (10:31)
[2019-02-26] MEDS: CALCIUM GLUCONATE IV SCH (10:31)
[2019-02-26] MEDS: MAGNESIUM SULFATE IV SCH (10:31)
--- NOTE | 2019-02-26 16:44 | General Surgery Progress Note ---
Subjective Patient reports: feels better, tolerating a regular diet, flatus, bowel movement, afebrile Narrative: Note initiated : 02/26/19 at 4:40 pm Service Date, if different from initiated Date: [] Patient: Dayanna Stephens 58 y/o F admitted on 02/19/19 for Abd Pain and Bloating. Chief Complaint: [patient continues to do well. She has had 3 complete days of asymptomatic state with the pyridostigmine injections. She has tolerated regular diet for 48 hours. Her abdominal pain nausea and vomiting has been con trolled with the pyridostigmine treatment. She has required minimal anti- emetics and decreasing amounts narcotics. She is having regular bowel movements daily. Patient has maintained O2 sats above 93% with 2 L of oxygen at night and should not need BiPAP at home. This will prevent her from dilating her GI tract with the pressure ventilations and reduce the need for rehospitalizations significan tly. She is ready for discharge, but we must find a way in which we can get the pyridostigmine without her having to pay, but $500 co-pay. Will try to discuss with insurance company tomorrow since the IM drug treatment will significantly reduce need for rehospitalization and should save the insurance company millions of dollars in the future since the patient is only 58 years old. We'll make an attempt to discuss this with the insurance agents tomorrow.] Objective Temp Pulse Resp BP Pulse Ox 98.0 F 87 18 152/80 95 02/26/19 12:00 02/26/19 12:00 02/26/19 12:00 02/26/19 12:00 02/26/19 12:00 - Additional Data Intake & Output - Last 24 hours: Intake & Output 02/24/19 02/25/19 02/26/19 02/27/19 05:59 05:59 05:59 05:59 Intake Total 2650 6085 3620 4242.0562 Output Total 6247 7434 5443 0733 Balance -6897 -3418 -0493 62 Weight 209 lb 8 oz 210 lb 8 oz 212 lb - General physical appearance well developed, well nourished, no distress - Eyes PERRL, normal ocular movement - ENT normal pinna, normal nares, normal mucosa, no hearing loss, no congestion - Neck no masses, no bruits, trachea midline, no lymphadenopathy, no venous distension - Respiratory normal expansion, normal respiratory effort, clear to auscultation - Cardiovascular Cardiovascular exam: Present: normal rate and rhythm, RRR, +S1, +S2. Absent: JVD, tachycardia - Abdomen non tender, bowel sounds (present), surgical scars (none), wound (stoma is functioning normally), masses (none) - Integumentary no rash, no growths, no abnormal pigmentation - Neurologic normal coordination, normal sensation - Musculoskeletal normal gait, normal posture - Psychiatric oriented to time, oriented to person, oriented to place, speech is normal, memory intact - Labs 02/26/19 04:35 02/26/19 04:35 Diabetes panel 02/26/19 Range/Units 04:35 Sodium 134 (133-145) mmol/L Potassium 4.9 (3.3-5.1) mmol/L Chloride 99 (96-108) mmol/L Carbon Dioxide 23 (22-30) mmol/L BUN 26 H (6-20) mg/dl Creatinine 0.6 (0.6-1.1) mg/dl Glucose 265 H (70-105) mg/dL Calcium 8.9 (8.6-10.4) mg/dl AST 11 (0-37) U/l ALT 26 (0-40) U/l Alkaline Phosphatase 80 (39-117) U/L Total Protein 5.7 L (5.9-8.4) gm/dL Albumin 3.2 (3.2-5.2) gm/dL Triglycerides 288 H (<150) mg/dl Calcium panel 02/26/19 Range/Units 04:35 Calcium 8.9 (8.6-10.4) mg/dl Phosphorus 3.5 (2.7-4.5) mg/dL Albumin 3.2 (3.2-5.2) gm/dL Pituitary panel 02/26/19 Range/Units 04:35 Sodium 134 (133-145) mmol/L Potassium 4.9 (3.3-5.1) mmol/L Chloride 99 (96-108) mmol/L Carbon Dioxide 23 (22-30) mmol/L BUN 26 H (6-20) mg/dl Creatinine 0.6 (0.6-1.1) mg/dl Glucose 265 H (70-105) mg/dL Calcium 8.9 (8.6-10.4) mg/dl Adrenal panel 02/26/19 Range/Units 04:35 Sodium 134 (133-145) mmol/L Potassium 4.9 (3.3-5.1) mmol/L Chloride 99 (96-108) mmol/L Carbon Dioxide 23 (22-30) mmol/L BUN 26 H (6-20) mg/dl Creatinine 0.6 (0.6-1.1) mg/dl Glucose 265 H (70-105) mg/dL Calcium 8.9 (8.6-10.4) mg/dl Total Bilirubin < 0.2 (0.0-1.0) mg/dL AST 11 (0-37) U/l ALT 26 (0-40) U/l Alkaline Phosphatase 80 (39-117) U/L Total Protein 5.7 L (5.9-8.4) gm/dL Albumin 3.2 (3.2-5.2) gm/dL Assessment and Plan (1) Chronic intestinal pseudo-obstruction Status: Acute Assessment and plan: Continue pyridostigmine Im Abdominal x-rays in the morning Arrange for Purchase of Pyridostigmine injectable prior to discharge tomorrow Current Visit: No (2) Small bowel obstruction Status: Resolved Assessment and plan: Advanced to regular diet Current Visit: Yes - Time Spent With Patient Total time spent is greater than 50% in coordination of care (as documented) at patient's floor/unit and/or counseling patient:
[2019-02-27] MEDS: INSULIN LISPRO 1 UNIT/0.01 ML UNIT SQ SCH ×3 (00:41→12:56)
[2019-02-27] MEDS: fentaNYL 100 MCG/2 ML VIAL IV PRN ×6 (01:52→14:01)
[2019-02-27 07:10] LABS: Basophils # (Auto) 0 K/mcL (0.0-0.3); Basophils % (Auto) 0 % (0.0-2.0); Eosinophils # (Auto) 0 K/mcL (0.0-0.7); Eosinophils % (Auto) 0 % (0.0-7.0); Granulocytes % (Auto) 88.5 % (38.0-78.0); Lymphocytes # (Auto) 0.8 K/mcL (1.5-4.8); Lymphocytes % (Auto) 7.3 % (15.5-49.0); Mean Cell Volume 84.3 fL (80.0-100.0); Mean Corpuscular HGB Conc 32.4 g/dL (31.0-36.0); Monocytes # (Auto) 0.5 K/mcL (0.1-0.9); Monocytes % (Auto) 4.2 % (1.0-12.0); Platelet Count 465 K/mcL (140-440); RBC 4.17 M/mcL (4.00-5.20); Red Cell Distribution Width 17.9 % (11.5-14.5)
[2019-02-27 07:55] LABS: ALT/SGPT 40 U/l (0-40); Albumin 3.5 gm/dL (3.2-5.2); Albumin/Globulin Ratio 1.3 (1.0-2.3); Alkaline Phosphatase 86 U/L (39-117); Bilirubin,Direct < 0.2 mg/dL (0.0-0.3); Blood Urea Nitrogen 32 mg/dl (6-20); Gamma Glutamyl Transpeptidase 39 U/L (5-36); Uric Acid 3.5 mg/dL (2.5-8.0)
[2019-02-27] MEDS: POLYETHYLENE GLYCOL 3350 17 GM PACKET PO SCH (08:03)
[2019-02-27] MEDS: ERYTHROMYCIN BASE 250 MG TABLET PO SCH (08:04)
[2019-02-27] MEDS: oxyCODONE/APAP 10/325MG TABLET PO PRN (08:05)
[2019-02-27] MEDS: DULoxetine 30 MG CAPSULE PO SCH (08:05)
[2019-02-27] MEDS: PANTOPRAZOLE 40 MG VIAL IV SCH (08:52)
--- NOTE | 2019-02-27 08:56 | XRay Report ---
CLINICAL INFORMATION: FOLLOW -UP OF SMALL BOWEL OBSTRUCTION COMPARISON: 02/26/2019 FINDINGS: The GI tract is relatively decompressed with only minimal gas seen within the stomach, small large and bowel. No evidence of recurrent small bowel obstruction. No free air, soft tissue mass or organomegaly. IMPRESSION: Decompressed GI tract - no evidence of recurrent small bowel obstruction Interpreted and Authenticated by: All Lundberg 02/27/19
[2019-02-27] MEDS: methylPREDNISolone SOD SUCC 125 MG/2 ML VIAL IV SCH (08:57)
[2019-02-27] MEDS: LEVOTHYROXINE 100 MCG VIAL IV SCH (08:57)
[2019-02-27] MEDS: CALCIUM GLUCONATE 9.3 MEQ in DEXTROSE 5% IN WATER 50 ML IV SCH (09:04)
[2019-02-27] MEDS: CYCLOBENZAPRINE 10 MG TABLET PO PRN (09:05)
[2019-02-27] MEDS: PYRIDOSTIGMINE BROMIDE 5 MG/ML IM SCH (09:06)
[2019-02-27] MEDS ORDERED: HEPARIN SODIUM,PORCINE/PF 500 UNIT/5 ML SYRINGE IV ONE (12:29)
--- NOTE | 2019-02-27 12:58 | Discharge Summary ---
Providers - Providers Patient information: Note initiated : 02/27/19 at 12:48 pm Service Date, if different from initiated Date: [] Patient: Dayanna Stephens 58 y/o F admitted on 02/19/19 for Abd Pain and Bloating. Chief Complaint: [] Date of admission: 02/17/19 Discharge date: 02/27/19 Attending physician: Bertha Currie Hospitalization Hospital course: 58-year-old female with history of chronic intestinal pseudoobstruction, status post total colectomy with ileostomy. Patient has been on promotility agents to include oral pyridostigmine as well as erythromycin base, with marginal results. She has had 3 emergency room visits in the past 5 days prior to admission with complaints of abdominal distention, nausea, vomiting, and decreased output through her stoma. She did not respond to outpatient treatment, so she was admitted on 17 February. Nasogastric tube was inserted and she was placed on suction. Suction was discontinued after about 36 hours. However, she had rapid evaluation of her bowels shortly thereafter. She was started on TPN on and continued on suction, but still had significant bowel dilation. Because she could not tolerate oral pyridostigmine. She was given a trial intramuscular pyridostigmine on 24 february. She had total resolution of dilated bowel Within 24 hours and and has maintained that for the past 72 hours. With the intramuscular injections. She has been able to have advance in her diet and she was tolerating regular diet without difficulty. She is therefore stable for discharge home. The patient has been known CPAP at home and CPAP has contributed to be massive dilation of her stomach and small bowel. When she is in the hospital. She has not received CPAP therapy but has been maintained on 2 L of oxygen at bedtime. She has tolerated this very well and she does not have any hypoxic episodes, except for a few seconds during her Apneic episodes. with supplemental oxygen She has not had oxygen saturations less than 90 %. She will therefore have home oxygen 2 L/m by nasal cannula to use at bedtime only. Discharge diagnosis: chronic intestinal pseudoobstruction Secondary discharge diagnosis: Severe adynamic ileus complicated by CPAP therapy. Myasthenia gravis. Chronic obstructive sleep apnea Reason for admission: massive stomach and small bowel dilation with nausea and vomiting Procedures: None Pertinent studies/significant findings: Small bowel follow-through Complications: None Exam Temp Pulse Resp BP Pulse Ox 98.1 F 88 16 166/91 94 02/27/19 11:33 02/27/19 11:33 02/27/19 11:33 02/27/19 11:33 02/27/19 11:33 - General physical appearance well developed, well nourished, no distress, no pain, chronically ill, obese - Eyes PERRL, normal ocular movement - ENT normal pinna, normal nares, normal mucosa, no hearing loss, no congestion - Head Head exam IM: Present: atraumatic, normocephalic - Neck no masses, no bruits, trachea midline, no lymphadenopathy, no venous distension - Cardiovascular Cardiovascular exam IM: Present: normal rate and rhythm - Respiratory normal expansion, normal respiratory effort, clear to auscultation - Abdomen Abdomen: Present: soft, non tender, bowel sounds, wound (. Ileostomy functioning normally), distended (no distention) Hernia: Present: none - Genitourinary Present: normal external genitalia - Integumentary Present: no rash, no growths, no abnormal pigmentation - Neurologic Present: normal coordination, normal sensation - Musculoskeletal Present: normal gait, normal posture - Psychiatric Present: oriented to time, oriented to person, oriented to place, speech is normal, memory intact Discharge Plan - Patient/Caregiver Discharge Instructions Activity: increase activity as tolerated, wear oxygen at night Diet: Regular Diet Prescriptions: Pyridostigmine Miles [Regonol] 2 mg IM BID 30 Days #60 ml - Follow up Plan Follow up with: Douglas Haque MD [Primary Care Provider] - Disposition: Home, Self-Care Prognosis: Good Rehab Potential: Good I certify that the patient requires SNF services.: No Overall status at discharge: patient is back to baseline Pending Studies Resuscitation Status Full Code Diet Regular Diet Start SatFebruary 25 1020 Benzocaine (Cetacaine) 1 spray TOPICAL PRN PRN PRN Reason: throat pain Last Admin: 02/23/19 14:26 Dose: 1 spray Documented by: Admin: 02/18/19 11:09 Dose: 1 spray Documented by: CAREY Cyclobenzaprine HCl (Flexeril) 10 mg PO TIDP PRN PRN Reason: Muscle Spasm Last Admin: 02/27/19 09:05 Dose: 10 mg Documented by: ESTHELA Cosigned by: JOHN Admin: 02/26/19 05:29 Dose: 10 mg Documented by: Admin: 02/24/19 19:11 Dose: 10 mg Documented by: DMITRIY Diagnostic Test (Pha) (Accu-Chek) 1 each FS Q6 [facility] Last Admin: 02/27/19 05:29 Dose: Not Given Documented by: Admin: 02/27/19 00:41 Dose: Not Given Documented by: Admin: 02/26/19 17:08 Dose: 1 each Documented by: Admin: 02/26/19 11:23 Dose: 1 each Documented by: Admin: 02/26/19 05:32 Dose: 1 each Documented by: Admin: 02/26/19 00:13 Dose: 1 each Documented by: Admin: 02/25/19 17:13 Dose: 1 each Documented by: Admin: 02/25/19 11:56 Dose: 1 each Documented by: Admin: 02/25/19 05:50 Dose: 1 each Documented by: Admin: 02/24/19 23:44 Dose: 1 each Documented by: Admin: 02/24/19 16:59 Dose: 1 each Documented by: Admin: 02/24/19 11:01 Dose: 1 each Documented by: CAROLINE Cosigned by: AURORA Admin: 02/24/19 06:31 Dose: 1 each Documented by: CAROLINE Cosigned by: AURORA Admin: 02/24/19 00:34 Dose: 1 each Documented by: [email or web address] Admin: 02/23/19 17:51 Dose: 1 each Documented by: CAROLINE Cosigned by: AURORA Admin: 02/23/19 11:37 Dose: 1 each Documented by: CAROLINE Cosigned by: AURORA Admin: 02/23/19 05:08 Dose: 1 each Documented by: Admin: 02/23/19 00:29 Dose: 1 each Documented by: Admin: 02/22/19 17:16 Dose: 1 each Documented by: Admin: 02/22/19 11:26 Dose: 1 each Documented by: Admin: 02/22/19 06:17 Dose: 1 each Documented by: Admin: 02/21/19 23:33 Dose: 1 each Documented by: Admin: 02/21/19 17:07 Dose: 1 each Documented by: AURORA Duloxetine HCl (Cymbalta) 30 mg PO BID [facility] Admin: 02/27/19 08:05 Dose: 30 mg Documented by: STEVEN Cosigned by: JOHN Admin: 02/26/19 20:15 Dose: 30 mg Documented by: Admin: 02/26/19 08:54 Dose: 30 mg Documented by: Admin: 02/25/19 20:24 Dose: 30 mg Documented by: Admin: 02/25/19 09:54 Dose: 30 mg Documented by: Admin: 02/24/19 21:24 Dose: 30 mg Documented by: Admin: 02/24/19 08:45 Dose: 30 mg Documented by: CAROLINE Medinaigned by: AURORA Admin: 02/23/19 21:04 Dose: 30 mg Documented by: Admin: 02/23/19 09:33 Dose: 30 mg Documented by: Admin: 02/22/19 20:50 Dose: 30 mg Documented by: Admin: 02/22/19 07:31 Dose: Not Given Documented by: Admin: 02/21/19 22:43 Dose: Not Given Documented by: Admin: 02/21/19 09:08 Dose: Not Given Documented by: Admin: 02/20/19 20:44 Dose: 30 mg Documented by: Admin: 02/20/19 09:01 Dose: 30 mg Documented by: Admin: 02/19/19 21:13 Dose: 30 mg Documented by: DIANE Erythromycin (Erythromycin) 500 mg PO BID [facility] Admin: 02/27/19 08:04 Dose: 500 mg Documented by: STEVEN Cosigned by: JOHN Admin: 02/26/19 20:15 Dose: 500 mg Documented by: Admin: 02/26/19 08:54 Dose: 500 mg Documented by: Admin: 02/25/19 20:24 Dose: 500 mg Documented by: Admin: 02/25/19 09:53 Dose: 500 mg Documented by: Admin: 02/24/19 21:24 Dose: 500 mg Documented by: Admin: 02/24/19 08:44 Dose: 500 mg Documented by: CAROLINE Cosigned by: AURORA Admin: 02/23/19 21:04 Dose: 500 mg Documented by: KENYETTA Fentanyl (Sublimaze) 25 mcg IV Q2HP PRN PRN Reason: Pain Last Admin: 02/27/19 11:51 Dose: 25 mcg Documented by: Admin: 02/27/19 09:45 Dose: 25 mcg Documented by: Admin: 02/27/19 07:34 Dose: 25 mcg Documented by: Admin: 02/27/19 04:33 Dose: 25 mcg Documented by: Admin: 02/27/19 01:52 Dose: 25 mcg Documented by: Admin: 02/26/19 20:03 Dose: 25 mcg Documented by: Admin: 02/26/19 17:51 Dose: 25 mcg Documented by: Admin: 02/26/19 15:43 Dose: 25 mcg Documented by: Admin: 02/26/19 12:37 Dose: 25 mcg Documented by: Admin: 02/26/19 07:43 Dose: 25 mcg Documented by: Admin: 02/25/19 13:15 Dose: 25 mcg Documented by: Admin: 02/25/19 08:07 Dose: 25 mcg Documented by: Admin: 02/24/19 19:41 Dose: 25 mcg Documented by: DMITRIY Calcium Gluconate 9.3 meq/ (Dextrose) 70 mls @ 140 mls/hr IV Q12H [facility] Last Admin: 02/27/19 09:04 Dose: 140 mls/hr Documented by: ESTHELA Cosigned by: JOHN Infusion: 02/26/19 20:42 Dose: 140 mls/hr Documented by: ESTHELA Cosigned by: JOHN Admin: 02/26/19 20:12 Dose: 140 mls/hr Documented by: Infusion: 02/26/19 10:34 Dose: 140 mls/hr Documented by: Admin: 02/26/19 08:56 Dose: 140 mls/hr Documented by: Infusion: 02/25/19 20:53 Dose: 140 mls/hr Documented by: Admin: 02/25/19 20:23 Dose: 140 mls/hr Documented by: Infusion: 02/25/19 10:46 Dose: 0 mls/hr Documented by: Admin: 02/25/19 09:52 Dose: 140 mls/hr Documented by: Infusion: 02/24/19 22:30 Dose: 0 mls/hr Documented by: Admin: 02/24/19 21:33 Dose: 140 mls/hr Documented by: Infusion: 02/24/19 10:00 Dose: 0 mls/hr Documented by: CAROLINE Medinaigned by: AURORA Admin: 02/24/19 08:44 Dose: 100 mls/hr Documented by: CAROLINE Medinaigned by: [email or web address] Infusion: 02/23/19 21:48 Dose: 140 mls/hr Documented by: CAROLINE Medinaigned by: [email or web address] Admin: 02/23/19 21:06 Dose: 100 mls/hr Documented by: Infusion: 02/23/19 10:30 Dose: 0 mls/hr Documented by: Admin: 02/23/19 09:34 Dose: 140 mls/hr Documented by: Infusion: 02/23/19 04:19 Dose: 0 mls/hr Documented by: Admin: 02/22/19 20:47 Dose: 140 mls/hr Documented by: Infusion: 02/22/19 11:00 Dose: 0 mls/hr Documented by: CAROLINE Medinaigned by: MGBRENDA Admin: 02/22/19 09:33 Dose: 140 mls/hr Documented by: CAROLINE Medinaigned by: MGARRED Infusion: 02/21/19 22:46 Dose: 0 mls/hr Documented by: Admin: 02/21/19 21:20 Dose: 140 mls/hr Documented by: KNEYETTA Sodium Chloride (Sodium Chloride 0.9%) 1,000 mls @ 0 mls/hr IV .Q0M MALENA Last Admin: 02/25/19 10:58 Dose: 20 mls/hr Documented by: [place] Insulin Human Lispro (Humalog) 0 unit SQ Q6 MALENA; Protocol Last Admin: 02/27/19 05:32 Dose: Not Given Documented by: Admin: 02/27/19 00:41 Dose: Not Given Documented by: Admin: 02/26/19 17:30 Dose: 6 units Documented by: Admin: 02/26/19 11:30 Dose: 6 units Documented by: ESTHELA Cosigned by: JOHN Admin: 02/26/19 05:35 Dose: 8 units Documented by: Admin: 02/26/19 00:17 Dose: 8 units Documented by: Admin: 02/25/19 17:14 Dose: 8 units Documented by: Admin: 02/25/19 11:56 Dose: 10 units Documented by: Admin: 02/25/19 05:56 Dose: 8 units Documented by: Admin: 02/24/19 23:48 Dose: 10 units Documented by: Admin: 02/24/19 17:04 Dose: 10 units Documented by: Admin: 02/24/19 11:07 Dose: 8 units Documented by: CAROLINE Medinaigned by: AURORA Admin: 02/24/19 06:36 Dose: 8 units Documented by: CAROLINE Medinaigned by: AURORA Admin: 02/24/19 00:33 Dose: 10 units Documented by: [email or web address] Admin: 02/23/19 17:52 Dose: 6 units Documented by: CAROLINE Cosigned by: AURORA Admin: 02/23/19 11:38 Dose: 6 units Documented by: CAROLINE Cosigned by: AURORA Admin: 02/23/19 05:17 Dose: 4 units Documented by: Admin: 02/23/19 00:39 Dose: 8 units Documented by: Admin: 02/22/19 17:25 Dose: 6 units Documented by: Admin: 02/22/19 11:31 Dose: 4 units Documented by: Admin: 02/22/19 06:20 Dose: 6 units Documented by: Admin: 02/21/19 23:50 Dose: 4 units Documented by: Admin: 02/21/19 17:12 Dose: 2 units Documented by: AURORA Levothyroxine Sodium (Synthroid) 125 mcg IV 0800 [facility] Last Admin: 02/27/19 08:57 Dose: 125 mcg Documented by: Admin: 02/26/19 07:41 Dose: 125 mcg Documented by: Admin: 02/25/19 07:51 Dose: 125 mcg Documented by: Admin: 02/24/19 08:42 Dose: 125 mcg Documented by: CAROLINE Cosigned by: AURORA Methylprednisolone Sodium Succinate (Solu-Medrol) 62.5 mg IV Q12 [facility] Last Admin: 02/27/19 08:57 Dose: 62.5 mg Documented by: Admin: 02/26/19 20:16 Dose: 62.5 mg Documented by: Admin: 02/26/19 08:56 Dose: 62.5 mg Documented by: Admin: 02/25/19 20:23 Dose: 62.5 mg Documented by: Admin: 02/25/19 09:52 Dose: 62.5 mg Documented by: Admin: 02/24/19 21:23 Dose: 62.5 mg Documented by: Admin: 02/24/19 08:43 Dose: 62.5 mg Documented by: CAROLINE Cosigned by: AURORA Admin: 02/23/19 21:05 Dose: 62.5 mg Documented by: Admin: 02/23/19 09:34 Dose: 62.5 mg Documented by: Admin: 02/22/19 20:49 Dose: 62.5 mg Documented by: Admin: 02/22/19 07:29 Dose: 62.5 mg Documented by: CAROLINE Cosigned by: AURORA Admin: 02/21/19 21:02 Dose: 62.5 mg Documented by: KENYETTA Ondansetron HCl (Zofran) 4 mg IV Q4HP PRN PRN Reason: Nausea And Vomiting Last Admin: 02/23/19 04:19 Dose: 4 mg Documented by: Admin: 02/21/19 09:07 Dose: 4 mg Documented by: Admin: 02/21/19 04:57 Dose: 4 mg Documented by: JOSE Oxycodone/Acetaminophen (Percocet 10-325mg) 1 tab PO Q6HP PRN PRN Reason: PAIN LEVEL 3-6 Last Admin: 02/27/19 08:05 Dose: 1 tab Documented by: STEVEN Medinaigned by: JOHN Admin: 02/26/19 23:27 Dose: 1 tab Documented by: Admin: 02/26/19 15:44 Dose: 1 tab Documented by: Admin: 02/26/19 10:06 Dose: 1 tab Documented by: Admin: 02/26/19 03:50 Dose: 1 tab Documented by: Admin: 02/25/19 22:19 Dose: 1 tab Documented by: Admin: 02/25/19 16:24 Dose: 1 tab Documented by: Admin: 02/25/19 10:03 Dose: 1 tab Documented by: Admin: 02/25/19 03:54 Dose: 1 tab Documented by: Admin: 02/24/19 22:01 Dose: 1 tab Documented by: Admin: 02/24/19 16:19 Dose: 1 tab Documented by: CAROLINE Medinaigned by: AURORA Pantoprazole Sodium (Protonix) 40 mg IV BID [facility] Last Admin: 02/27/19 08:52 Dose: 40 mg Documented by: [email or web address] Admin: 02/26/19 20:17 Dose: 40 mg Documented by: Admin: 02/26/19 08:56 Dose: 40 mg Documented by: Admin: 02/25/19 20:23 Dose: 40 mg Documented by: Admin: 02/25/19 09:53 Dose: 40 mg Documented by: Admin: 02/24/19 21:24 Dose: 40 mg Documented by: Admin: 02/24/19 08:41 Dose: 40 mg Documented by: CAROLINE Medinaigned by: AURORA Admin: 02/23/19 21:06 Dose: 40 mg Documented by: KENYETTA Polyethylene Glycol (Miralax) 17 gm PO BID [facility] Last Admin: 02/27/19 08:03 Dose: 17 gm Documented by: STEVEN Cosigned by: JOHN Admin: 02/26/19 20:11 Dose: 17 gm Documented by: Admin: 02/26/19 08:55 Dose: 17 gm Documented by: Admin: 02/25/19 20:23 Dose: 17 gm Documented by: Admin: 02/25/19 09:53 Dose: 17 gm Documented by: Admin: 02/24/19 21:25 Dose: 17 gm Documented by: Admin: 02/24/19 08:44 Dose: 17 gm Documented by: CAROLINE Cosigned by: AURORA Admin: 02/23/19 21:06 Dose: 17 gm Documented by: Admin: 02/23/19 09:32 Dose: 17 gm Documented by: Admin: 02/22/19 20:50 Dose: 17 gm Documented by: Admin: 02/22/19 14:46 Dose: 17 gm Documented by: CAROLINE Medinaigned by: AURORA Admin: 02/22/19 07:31 Dose: Not Given Documented by: Admin: 02/21/19 22:43 Dose: Not Given Documented by: Admin: 02/21/19 09:09 Dose: Not Given Documented by: Admin: 02/20/19 20:44 Dose: 17 gm Documented by: Admin: 02/20/19 09:02 Dose: 17 gm Documented by: Admin: 02/19/19 21:12 Dose: 17 gm Documented by: DIANE Promethazine HCl (Phenergan) 12.5 mg IV Q4HP PRN PRN Reason: Nausea And Vomiting Last Admin: 02/24/19 00:26 Dose: 12.5 mg Documented by: Admin: 02/23/19 17:54 Dose: 12.5 mg Documented by: CAROLINE Cosigned by: AURORA Admin: 02/23/19 07:04 Dose: 12.5 mg Documented by: CAROLINE Cosigned by: AURORA Admin: 02/22/19 22:58 Dose: 12.5 mg Documented by: [email or web address] Admin: 02/22/19 15:37 Dose: 12.5 mg Documented by: CAROLINE Cosigned by: [email or web address] Admin: 02/22/19 09:33 Dose: 12.5 mg Documented by: CAROLINE Cosigned by: AURORA Admin: 02/21/19 23:35 Dose: 12.5 mg Documented by: Admin: 02/21/19 11:38 Dose: 12.5 mg Documented by: CAROLINE Cosigned by: AURORA Admin: 02/21/19 07:04 Dose: 12.5 mg Documented by: CAROLINE Cosigned by: [email or web address] Admin: 02/21/19 02:51 Dose: 12.5 mg Documented by: Admin: 02/20/19 22:47 Dose: 12.5 mg Documented by: Admin: 02/20/19 19:00 Dose: 12.5 mg Documented by: Admin: 02/20/19 09:58 Dose: 12.5 mg Documented by: AIMEE Pyridostigmine Miles (Regonol) 2 mg IM BID [facility] Last Admin: 02/27/19 09:06 Dose: 2 mg Documented by: ESTHELA Cosigned by: JOHN Admin: 02/26/19 20:18 Dose: 2 mg Documented by: Admin: 02/26/19 08:57 Dose: 2 mg Documented by: Admin: 02/25/19 20:23 Dose: 2 mg Documented by: Admin: 02/25/19 09:53 Dose: 2 mg Documented by: Admin: 02/24/19 21:32 Dose: 2 mg Documented by: Admin: 02/24/19 08:44 Dose: 2 mg Documented by: CAROLINE Cosigned by: AURORA Shift Summary 02/27/19 02:43 Shift Summary by Sandra Nevarez a/o x4, up to bsc independently, ns at 20 cc/hr via chest wall port, tolerating siet well, given tuna sandwich at bedtime, no c/o nausea after, ostomy functioning well with light brown loose slightly formed stool, patient still asking for fentanyl iv aslo has been given oxycodone, oximetry monitor on tonight for night time eval for home o2, willalso be checked today with a walk, plan is to hopefully d/c home today. Initialized on 02/27/19 02:43 - END OF NOTE
[2019-02-27 13:27] LABS: Appearance,Urine CLEAR; Bilirubin,Urine NEG (NEG); Color,Urine YELLOW; Glucose,Urine (UA) 150 mg/dL (NEG); Leukocyte Esterase,Urine NEG /uL (NEG); Protein,Urine NEG (NEG); Urine Blood NEG mg/dL (<0.03); Urobilinogen,Urine NEG (NEG)
== END 2019-02-27 14:30 | disposition home or self-care (01) | DRG 389 ==
LOC: MEDSUR 17:17 → ED 17:17 → MEDSUR 20:46
PROVIDERS: ADMIT Family Medicine Adult Medicine; ATTEND Family Medicine Adult Medicine

== ENCOUNTER 2019-09-22 19:47 | Inpatient (IN) ==
[2019-09-22] MEDS ORDERED: PROMETHAZINE 25 MG/ML VIAL IV ONE (20:50)
[2019-09-22] MEDS ORDERED: LACTATED RINGERS 1,000 ML IV ONE (20:50)
--- NOTE | 2019-09-22 20:54 | Emergency Department Note ---
Nausea/Vomiting/Diarrhea HPI - General Chief complaint: Nausea/Vomiting/Diarrhea Stated complaint: NAUSEA AND VOMITING Time Seen by Provider: 09/22/19 20:25 Mode of arrival: wheelchair - History of Present Illness HPI Narrative: This unfortunate 58-year-old female presents to ED after being discharged from [facility] yesterday, she states that she was still feeling like vomiting yesterday when she was discharged and she does have a history of dysfunction of her esophagus, as she is not able to hold down any fluids in the last 24 hours, so to speak of. 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 The. tells me that she is generally weak, she was discharged to [facility] and he was visiting with her today, but they felt like she was not able to hold down anything and thus she comes in for reevaluation - Related Data Home Medications Medication Instructions Recorded Confirmed DULoxetine [Cymbalta] 30 mg PO BID 11/30/16 02/17/19 Levothyroxine [Synthroid] 250 mcg PO QAMAC 08/20/17 02/17/19 Polyethylene Glycol 3350 [Miralax] 17 gm PO DAILYP PRN 01/15/19 02/17/19 Calcitriol [Rocaltrol] 0.25 mcg PO TID 02/11/19 02/17/19 Erythromycin Base [Erythromycin] 250 mg PO QID 02/11/19 02/17/19 Omeprazole [Prilosec] 20 mg PO BID 02/11/19 02/17/19 Pyridostigmine [place] [Regonol] 10 mg IM BID 08/15/19 Previous Rx's Medication Instructions Recorded predniSONE [Prednisone] 20 mg PO [facility] #4 tab 05/18/16 metFORMIN HCL [Metformin HCl] 500 mg PO DAILY #30 tab 10/17/18 Calcium Carbonate 1,250 mg PO DAILY #50 oral.susp 01/18/19 Magnesium Oxide 400 mg PO DAILY #10 tab 01/18/19 Promethazine [Phenergan] 25 mg PO Q6HP PRN #60 tab 02/13/19 cyclobenzaprine 10 mg tablet 10 mg PO TID #90 tab 04/17/19 filter needles 19 x 1 1/2" See Dose Instructions .ROUTE 05/12/19 .MEDSUPPLY #100 each B-D Syringe 3 mL #100 each 05/28/19 Allergies Allergy/AdvReac Type Severity Reaction Status Date / Time Sulfa (Sulfonamide Allergy Severe Anaphylaxis Verified 08/15/19 23:02 Antibiotics) adhesive tape AdvReac Mild Blister Verified 08/15/19 23:02 metoclopramide [From Reglan] AdvReac Mild Anxiety Verified 08/15/19 23:02 steri strips Allergy Severe Blister Uncoded 02/17/19 17:22 Review of Systems All systems ED: reviewed and negative except as stated. Past Medical History - Past Medical History Source: nursing notes reviewed Medical history: Reports: COPD, hypertension, hypothyroidism, other (Myasthenia gravis). 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 Denies: marijuana Physical Exam 58-year-old female, awake and alert. She is oriented 3, appears uncomfortable hours secondary to abdominal pain General appearance: alert, in no apparent distress, obese Head: atraumatic, normocephalic Eye: Present: visual coronel intact, other (she has fourth cranial nerve palsy). Absent: EOMI ENT: Present: normal exam, normal oropharynx, mucous membranes dry, TM's normal bilaterally Neck: Present: normal inspection, full ROM, trachea midline. Absent: tenderne ss, meningismus Chest: Present: other (scarred to the anterior chest wall) Respiratory: Present: normal lung sounds bilaterally. Absent: respiratory distress Cardiovascular: Present: regular rate, normal rhythm, tachycardia Abdominal: Present: soft, distention, hypoactive bowel sounds Extremities: Present: normal inspection, full ROM, pedal edema. Absent: joint swelling, calf tenderness Back: Present: normal inspection. Absent: CVA tenderness (R), CVA tenderness (L), vertebral tenderness Neurological: Present: alert, oriented X3, motor sensory deficit (weakness of arms) Psychiatric: Present: normal affect Skin: Present: warm, dry, normal color Course Vital Signs Temperature 98.8 F 09/22/19 19:48 Pulse Rate 132 H 09/22/19 19:48 Respiratory Rate 17 09/22/19 19:48 Pulse Oximetry (%) 96 09/22/19 19:48 Temperature 98.8 F 09/22/19 19:48 Pulse Rate 113 H 09/22/19 22:16 Respiratory Rate 18 09/22/19 22:16 Blood Pressure 127/69 09/22/19 22:16 Pulse Oximetry (%) 86 L 09/22/19 22:16 Nausea/Vomiting/Diarrhea - MDM Narrative Medical decision making narrative: Patient has multiple air-fluid levels. The. Consistent with small bowel obstruction. The. Discussed with Dr. Currie. She will be admitted with diagnosis of bowel obstruction. The. NG tube placement. Recommended - Lab Data Result diagrams: 09/22/19 21:13 09/22/19 21:13 Lab Results 09/22/19 09/22/19 09/22/19 Range/Units 21:13 21:13 21:13 WBC 12.1 H (4.5-11.0) K/mcL RBC 4.02 (4.00-5.20) M/mcL Hgb 10.5 L (12.0-15.0) g/dL Hct 33.5 L (36.0-48.0) % MCV 83.1 (80.0-100.0) fL MCH 26.2 (26.0-34.0) pg MCHC 31.5 (31.0-36.0) g/dL RDW 19.4 H (11.5-14.5) % Plt Count 558 H (140-440) K/mcL MPV 7.6 (7.4-10.4) fL Gran % 84.3 H (38.0-78.0) % Lymph % (Auto) 8.6 L (15.5-49.0) % Churchill % (Auto) 5.9 (1.0-12.0) % Eos % (Auto) 0.8 (0.0-7.0) % Baso % (Auto) 0.4 (0.0-2.0) % Gran # 10.3 H (1.8-8.0) K/mcL Lymph # (Auto) 1.0 L (1.5-4.8) K/mcL Churchill # (Auto) 0.7 (0.1-0.9) K/mcL Eos # (Auto) 0.1 (0.0-0.7) K/mcL Baso # (Auto) 0 (0.0-0.3) K/mcL VBG Lactic Acid 0.7 (0.5-2.0) mmol/L Sodium 133 (133-145) mmol/L Potassium 4.4 (3.3-5.1) mmol/L Chloride 90 L (96-108) mmol/L Carbon Dioxide 26 (22-30) mmol/L Anion Gap 17.0 H (8-16) BUN 13 (6-20) mg/dl Creatinine 0.7 (0.6-1.1) mg/dl GFR Calculation 96 Glucose 160 H (70-105) mg/dL Calcium 8.3 L (8.6-10.4) mg/dl Total Bilirubin 0.2 (0.0-1.0) mg/dL AST 21 (0-37) U/l ALT 27 (0-40) U/l Alkaline Phosphatase 132 H (39-117) U/L C-Reactive Protein 3.6 H (0.0-0.8) mg/dl Total Protein 6.8 (5.9-8.4) gm/dL Albumin 3.3 (3.2-5.2) gm/dL Globulin 3.5 (2.2-3.7) gm/dL Albumin/Globulin Ratio 0.9 L (1.0-2.3) Lipase 10 (7-60) U/L Disposition Pt seen by MEDICAL TRANSCRIPTION RADIOLOGY/PA only: No Clinical Impression: Dehydration, Small bowel obstruction Disposition: Xfer As Inpt ([facility]) Condition: Fair Referrals: Douglas Haque MD [Primary Care Provider] -
[2019-09-22] MEDS: HYDROmorphone 2 MG/ML VIAL IV PRN ×2 (21:27→23:34)
[2019-09-22 22:09] LABS: Basophils # (Auto) 0 K/mcL (0.0-0.3); Basophils % (Auto) 0.4 % (0.0-2.0); Eosinophils # (Auto) 0.1 K/mcL (0.0-0.7); Eosinophils % (Auto) 0.8 % (0.0-7.0); Granulocytes % (Auto) 84.3 % (38.0-78.0); Hematocrit 33.5 % (36.0-48.0); Hemoglobin 10.5 g/dL (12.0-15.0); Lymphocytes % (Auto) 8.6 % (15.5-49.0); Mean Cell Volume 83.1 fL (80.0-100.0); Mean Corpuscular HGB Conc 31.5 g/dL (31.0-36.0); Mean Platelet Volume 7.6 fL (7.4-10.4); Monocytes # (Auto) 0.7 K/mcL (0.1-0.9); Monocytes % (Auto) 5.9 % (1.0-12.0); Platelet Count 558 K/mcL (140-440); RBC 4.02 M/mcL (4.00-5.20); Red Cell Distribution Width 19.4 % (11.5-14.5); WBC 12.1 K/mcL (4.5-11.0)
[2019-09-22 22:18] LABS: ALT/SGPT 27 U/l (0-40); AST/SGOT 21 U/l (0-37); Albumin 3.3 gm/dL (3.2-5.2); Albumin/Globulin Ratio 0.9 (1.0-2.3); Alkaline Phosphatase 132 U/L (39-117); Bilirubin,Total 0.2 mg/dL (0.0-1.0); Blood Urea Nitrogen 13 mg/dl (6-20); C-Reactive Protein 3.6 mg/dl (0.0-0.8); Calcium 8.3 mg/dl (8.6-10.4); Carbon Dioxide 26 mmol/L (22-30); Globulin 3.5 gm/dL (2.2-3.7); Glomerular Filtration Rate 96; Glucose 160 mg/dL (70-105)
[2019-09-22 22:31] LABS: Chloride 90 mmol/L (96-108)
[2019-09-22] MEDS ORDERED: ACETAMINOPHEN 325 MG TABLET PO PRN (22:33)
[2019-09-23] MEDS: HYDROmorphone 2 MG/ML VIAL IV PRN ×6 (01:30→21:58)
[2019-09-23] MEDS: PROMETHAZINE 25 MG/ML VIAL IV PRN ×5 (01:31→21:59)
[2019-09-23] MEDS: LACTATED RINGERS 1,000 ML IV SCH ×6 (01:58→21:53)
--- NOTE | 2019-09-23 05:43 | XRay Report ---
CLINICAL INFORMATION: History of previous colectomy and recurrent small bowel obstructions TECHNIQUE: Supine and upright abdomen COMPARISON: Multiple previous plain film examinations and CT scans FINDINGS: There are skin kori and a lower abdominal, pelvic incision. Dilated gas filled small bowel with multiple air-fluid levels. Appearance may be secondary to postoperative ileus but mechanical small bowel obstruction is possible. There is no colonic gas but this patient has a history of colectomy No pneumoperitoneum. No biliary or portal venous gas. No pneumatosis. IMPRESSION: 1. Dilated gas-filled small bowel. 2. Recurrent small bowel obstructions possible. Ileus is not excluded Interpreted and Authenticated by: All Cormier 09/23/19
--- NOTE | 2019-09-23 05:44 | XRay Report ---
CLINICAL INFORMATION: Nasogastric tube placement TECHNIQUE: AP supine abdomen COMPARISON: Previous examination dated 09/22/2019 FINDINGS: There is an esophagogastric tube with its tip in the distal stomach. Noted is a small caliber central venous catheter with chemotherapy infusion port. Catheter tip is in the right atrium Again noted is dilated gas filled small bowel, Bev IMPRESSION: Esophagogastric tube in the stomach Interpreted and Authenticated by: All Cormier 09/23/19
[2019-09-23] MEDS: PYRIDOSTIGMINE BROMIDE 10 MG/2 ML ML SC SCH ×3 (12:14→23:26)
--- NOTE | 2019-09-23 14:32 | General Surg History&Physical ---
History of Present Illness Patient information: Note initiated : 09/23/19 at 2:26 pm Service Date, if different from initiated Date: [] Patient: Dayanna Stephens a 58 y/o F admitted on 09/22/19 for NAUSEA AND VOMITING. Chief Complaint: [] HPI: Ms. Stephens is a 58 year old F admitted with probable progression of chronic intestinal pseudoobstruction. Patient was recently discharged from [facility] in [facility]. She presented there after transfer from our facility on 16 August 2019. She was found to have small bowel obstruction with sepsis and acidosis. She underwent laparoscopic lysis of adhesions and parastomal hernia repair. 20 August. She did not improve over the next 3 weeks and on 11 September underwent exploratory laparotomy with adhesion lysis small bowel resection and removal of mesh. She was discharged to nursing care facility 2 days ago had progressive nausea vomiting, severe abdominal pain. She was seen in the emergency room last evening and admitted with suspected exacerbation of her chronic intestinal pseudoobstruction. She will still having some output through her stoma at the time of admission but she has massively dilation of her stomach residual small bowel. She's been placed on nasogastric decompression and feels better. X-rays just showed diffuse dilation of stomach, small bowel, extending down to her stoma. Patient will need to have Gastrografin study and will be restarted on peripheral stigma therapy which has been effective. Review of Systems - Constitutional fatigue, lethargy, malaise, snoring, weakness, weight loss - EENT Nose, mouth and throat: dizziness, vertigo - Cardiovascular lightheadedness, palpatations, rapid heart rate, no chest pain with activity, no syncope - Respiratory dyspnea on exertion, snoring, no cough, no wheezing - Gastrointestinal abdominal pain, bloating, change in bowel habits, change in stool character, early satiety, nausea, vomiting - Genitourinary Genitourinary: no difficulty urinating, no nocturia, no urinary hesitancy, no urinary incontinence, no urinary urgency - Musculoskeletal arthralgias, back pain, muscle weakness, numbness, stiffness - Integumentary no new lesions, no pruritus, no rash - Neurological abnormal hearing, dizziness, headache(s), weakness, no syncope, no tremor(s) - Psychiatric anxiety, depression - Endocrine fatigue, palpitations - Hematologic/Lymphatic no easy bleeding, no easy bruising, no lymphadenopathy - Allergic/Immunologic no tongue swelling, no throat swelling, no uticaria, no wheezing, no lip swelling Past History Past medical history: Chronic intestinal pseudoobstruction. Myasthenia gravis. Chronic obstructive sleep apnea. History of small bowel obstruction due to adhesions. Diabetes mellitus. Morbid obesity. Chronic systemic steroid therapy. Hypocalcemia. Hypothyroidism Past surgical history: Sigmoid colectomy with colostomy. Lotrel laparotomy with adhesiolysis 5. Exploratory laparotomy with repair of parastomal hernia 2. Exploratory laparotomy with repair of lower abdominal wall dehiscence. Parra's cyst to plication small bowel. Total colectomy with ileostomy. Laparoscopic lysis of adhesions and parastomal hernia repair. Exploratory laparotomy with small bowel resection adhesion lysis and removal of mesh graft Past social history: Former tobacco use. Prior history of marijuana use Denies alcohol use. Physically disabled Medications and Allergies Home Medications Medication Instructions Recorded Confirmed Type predniSONE [Prednisone] 20 mg PO [facility] #4 tab 05/18/16 02/17/19 Rx DULoxetine [Cymbalta] 30 mg PO BID 11/30/16 02/17/19 History Levothyroxine [Synthroid] 250 mcg PO QAMAC 08/20/17 02/17/19 History metFORMIN HCL [Metformin HCl] 500 mg PO DAILY #30 tab 10/17/18 02/17/19 Rx Polyethylene Glycol 3350 [Miralax] 17 gm PO DAILYP PRN 01/15/19 02/17/19 History Calcium Carbonate 1,250 mg PO DAILY #50 oral.susp 01/18/19 02/17/19 Rx Magnesium Oxide 400 mg PO DAILY #10 tab 01/18/19 02/17/19 Rx Calcitriol [Rocaltrol] 0.25 mcg PO TID 02/11/19 02/17/19 History Erythromycin Base [Erythromycin] 250 mg PO QID 02/11/19 02/17/19 History Omeprazole [Prilosec] 20 mg PO BID 02/11/19 02/17/19 History Promethazine [Phenergan] 25 mg PO Q6HP PRN #60 tab 02/13/19 02/17/19 Rx cyclobenzaprine 10 mg tablet 10 mg PO TID #90 tab 04/17/19 Rx filter needles 19 x 1 1/2" See Dose Instructions .ROUTE 05/12/19 Rx .MEDSUPPLY #100 each B-D Syringe 3 mL #100 each 05/28/19 Rx Pyridostigmine [place] [Regonol] 10 mg IM BID 08/15/19 History Allergies Allergy/AdvReac Type Severity Reaction Status Date / Time Sulfa (Sulfonamide Allergy Severe Anaphylaxis Verified 08/15/19 23:02 Antibiotics) adhesive tape AdvReac Mild Blister Verified 08/15/19 23:02 metoclopramide [From Reglan] AdvReac Mild Anxiety Verified 08/15/19 23:02 steri strips Allergy Severe Blister Uncoded 02/17/19 17:22 Exam Temp Pulse Resp BP Pulse Ox 97.9 F 109 H 18 145/84 96 09/23/19 08:00 09/23/19 08:00 09/23/19 08:00 09/23/19 08:00 09/23/19 08:00 - General physical appearance well developed, well nourished, moderate distress, moderate pain, chronically ill - Eyes PERRL, normal ocular movement - ENT normal pinna, normal nares, normal mucosa, no hearing loss, no congestion - Head Head exam IM: Present: atraumatic, normocephalic - Neck no masses, no bruits, trachea midline, no lymphadenopathy, no venous distension - Cardiovascular Cardiovascular exam IM: Present: normal rate and rhythm, RRR, +S1, +S2, tachycardia. Absent: JVD - Respiratory normal expansion, normal respiratory effort, clear to percussion, clear to auscultation - Abdomen Abdomen: Present: soft, tender (mildly distended around stoma and right lower quadrant), bowel sounds, distended (; moderate distention) Hernia: Present: none - Genitourinary Present: normal external genitalia - Integumentary Present: no rash, no growths, no abnormal pigmentation - Neurologic Present: normal coordination, normal sensation - Musculoskeletal Present: normal gait, normal posture - Psychiatric Present: oriented to time, oriented to person, oriented to place, speech is normal, memory intact Assessment and Plan (1) Chronic intestinal pseudo-obstruction Patient will have nasogastric decompression and will be started on pyridostigmine injections. Small bowel follow-through will be performed Status: Acute (2) Chronic use of steroids We'll start on prednisone as soon as able to take orally Status: Chronic Comment: for myasthenia gravis; 10+ years (3) Chronic, continuous use of opioids Continue analgesics as needed Status: Chronic (4) Hypertension Status: Chronic Qualifiers: Hypertension type: essential hypertension Qualified Code(s): I10 - Essential (primary) hypertension (5) Myasthenia gravis Status: Chronic (6) LA (obstructive sleep apnea) Supplemental oxygen by nasal cannula rather than biopsy at that Status: Chronic (7) Obesity, Class II, BMI 35-39.9 Status: Chronic
[2019-09-23] MEDS ORDERED: DIATRIZOATE MEGLU/DIATRIZO SOD 30 ML BOTTLE PO ONE (16:45)
[2019-09-23] MEDS ORDERED: HEPARIN 5,000 UNIT/ML VIAL SQ SCH (21:00)
[2019-09-24] MEDS: PROMETHAZINE 25 MG/ML VIAL IV PRN (00:41)
[2019-09-24] MEDS: HYDROmorphone 2 MG/ML VIAL IV PRN (00:42)
[2019-09-24 00:57] LABS: Appearance,Urine CLEAR; Bacteria,Urine 0 /hpf (0); Bilirubin,Urine NEG (NEG); Color,Urine YELLOW; Culture Indicated,Urine YES; Glucose,Urine (UA) NEGATIVE (NEG); Ketones,Urine 20 mg/dL (NEG); Leukocyte Esterase,Urine 75 /uL (NEG); Mucus,Urine MANY /hpf (0); Nitrate,Urine NEG (NEG); Protein,Urine NEG (NEG); Specific Gravity,Urine 1.017 (1.000-1.035); Urine Blood NEG mg/dL (<0.03); Urine Hyaline Cast 3 /lpf (0-2); Urine RBC 3 /hpf (0-1); Urine Squamous Epithelial Cell 3 /hpf (0-4); Urine Transitional Epi Cells < 1 /hpf (0-2); Urine WBC 12 /hpf (0-4); Urobilinogen,Urine NEG (NEG)
[2019-09-24] MEDS: LACTATED RINGERS 1,000 ML IV SCH ×4 (03:00→20:45)
[2019-09-24] MEDS ORDERED: NALOXONE HCL 0.4 MG/ML VIAL ONE (04:05)
[2019-09-24] MEDS ORDERED: NALOXONE HCL 0.4 MG/ML VIAL IV PRN ×2 (04:10→06:26)
[2019-09-24] MEDS ORDERED: 0.9 % SODIUM CHLORIDE 500 ML IV ONE ×2 (04:10→06:26)
[2019-09-24] MEDS ORDERED: 0.9 % SODIUM CHLORIDE 1,000 ML IV ONE ×3 (04:11→05:40)
[2019-09-24] MEDS ORDERED: ROCURONIUM 10 MG/ML ML IV ONE (04:16)
[2019-09-24] MEDS ORDERED: KETAMINE 100 MG/ML ML IV ONE (04:16)
[2019-09-24] MEDS ORDERED: PROPOFOL 200 MG/20 ML VIAL IV ONE (04:16)
[2019-09-24] MEDS ORDERED: 0.9 % SODIUM CHLORIDE 250 ML IV SCH (04:30)
[2019-09-24] MEDS ORDERED: NOREPINEPHRINE BITARTRATE 16 MG in 0.9 % SODIUM CHLORIDE 234 ML IV SCH (04:30)
[2019-09-24] MEDS ORDERED: NOREPINEPHRINE BITARTRATE 4 MG/4 ML VIAL IV ONE (04:36)
[2019-09-24] MEDS: 0.9 % SODIUM CHLORIDE 250 ML IV SCH ×2 (04:48→18:10)
[2019-09-24] MEDS ORDERED: fentaNYL 100 MCG/2 ML VIAL IV ONE (05:15)
[2019-09-24] MEDS ORDERED: fentaNYL 50 ML ONE (05:17)
--- NOTE | 2019-09-24 05:24 | Internal Medicine Consult Note ---
Medical - CN: [facility] - Data of Consult Consult date: 09/24/19 Primary Care Provider: Douglas Haque - Consult Narrative Reason for consult: Shock and mechanical ventilation management History of present illness: Ms. Stephens is a 58 year old morbidly obese F with a complex medical history of parathyroidism , chronic hypocalcemia, polyglandular syndrome, sarcoidosis, myasthenia gravis and multiple bowel obstruction/abdominal surgeries with colostomy who underwent recent hospitalization at [facility] following a bowel obstruction and underwent surgery x2 between August 16 in September 21. Patient was discharged to [facility] center however due to worsening abdominal pain and nausea vomiting she was admitted on 09/23 under surgical service for management of bowel obstruction. She underwent NG decompression. Early this morning patient was found to be increasingly dyspneic with sats in mid 60s following episode of nausea and large emesis. Patient was evaluated by surgery and underwent intubation due to profound hypoxia and was initiated on mechanical ventilation. Systolics was around 80 and was started on Levophed af ter crystalloid boluses. Subsequently hospitalist service was consulted for management of mechanical ventilation and shock/hypoxic respiratory failure At the time evaluation patient is on mechanical ventilation. Family members are present. Most of the history is obtained from review of medical records and Dr. Currie surgeon Patient has an ostomy which was noted to be draining copious amount of liquid output She is febrile at 101.1. Is currently on vasopressors at 10 mics. She received 3 L of crystalloids. Martinez is draining dark urine. Right subclavian central line was secured by anesthesia. Initial blood gas 7.35/40 2/64 on 70% FiO2 PEEP 5, plateau pressure 23 peak pressure 12, tidal volume 450 rate 14. Review of systems 10 point review system attempted but could not performed CC: Bertha Currie MD Medical - CN: [facility] Surgical history: Diabetes mellitus type 2, uncontrolled (Chronic) Obesity, Class II, BMI 35-39.9 (Chronic) Hypertension (Chronic) Recurrent intestinal obstruction (Chronic) Chronic use of steroids (Chronic) Abnormal liver enzymes (Chronic) Hypothyroidism (Chronic) Myasthenia gravis (Chronic) Polyglandular autoimmune syndrome (Chronic) Sarcoidosis (Chronic) Hypocalcemia (Chronic) Achalasia and cardiospasm (Chronic) Constipation due to pain medication therapy (Chronic) Supraventricular tachycardia (Resolved) Encounter for care related to Port-a-Cath (Chronic) Abdominal pain (Resolved) Abdominal wound dehiscence (Resolved) Adverse reaction to drug (Resolved) Anaphylaxis (Resolved) Bowel obstruction (Resolved) 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) Constipation due to neurogenic bowel (Resolved) Fecal impaction (Resolved) Foot sprain (Resolved) Ileus (Resolved) Infiltrate of lung present on imaging of chest (Resolved) Nausea (Resolved) Nausea & vomiting (Resolved) Obstruction of descending colon (Resolved) Pancreatitis (Resolved) Parastomal hernia with obstruction, without gangrene (Resolved) Partial intestinal obstruction, unspecified as to cause (Resolved) Pneumonia (Resolved) Primary chronic pseudo-obstruction of large intestine (Resolved) Pseudoobstruction of colon (Resolved) Pyelonephritis (Resolved) Sepsis associated hypotension (Resolved) Severe sepsis (Resolved) Sigmoid volvulus (Resolved) Small bowel obstruction (Resolved) Small bowel obstruction (Resolved) Small bowel obstruction (Resolved) Small bowel obstruction due to adhesions (Resolved) Small bowel obstruction due to postoperative adhesions (Resolved) Small bowel obstruction, partial (Resolved) UTI (urinary tract infection) (Resolved) Volvulus of sigmoid colon (Resolved) Past surgical history: Sigmoid colectomy with colostomy. Lotrel laparotomy with adhesiolysis 5. Exploratory laparotomy with repair of parastomal hernia 2. Exploratory laparotomy with repair of lower abdominal wall dehiscence. Parra's cyst to plication small bowel. Total colectomy with ileostomy. Laparoscopic lysis of adhesions and parastomal hernia repair. Exploratory laparotomy with small bowel resection adhesion lysis and removal of mesh graft Past social history: Former tobacco use. Prior history of marijuana use Denies alcohol use. Physically disabled Medical - CN: Meds Home Medications Medication Instructions Recorded Confirmed Type predniSONE [Prednisone] 20 mg PO [facility] #4 tab 05/18/16 02/17/19 Rx DULoxetine [Cymbalta] 30 mg PO BID 11/30/16 02/17/19 History Levothyroxine [Synthroid] 250 mcg PO QAMAC 08/20/17 02/17/19 History metFORMIN HCL [Metformin HCl] 500 mg PO DAILY #30 tab 10/17/18 02/17/19 Rx Polyethylene Glycol 3350 [Miralax] 17 gm PO DAILYP PRN 01/15/19 02/17/19 History Calcium Carbonate 1,250 mg PO DAILY #50 oral.susp 01/18/19 02/17/19 Rx Magnesium Oxide 400 mg PO DAILY #10 tab 01/18/19 02/17/19 Rx Calcitriol [Rocaltrol] 0.25 mcg PO TID 02/11/19 02/17/19 History Erythromycin Base [Erythromycin] 250 mg PO QID 02/11/19 02/17/19 History Omeprazole [Prilosec] 20 mg PO BID 02/11/19 02/17/19 History Promethazine [Phenergan] 25 mg PO Q6HP PRN #60 tab 02/13/19 02/17/19 Rx cyclobenzaprine 10 mg tablet 10 mg PO TID #90 tab 04/17/19 Rx filter needles 19 x 1 10/15" See Dose Instructions .ROUTE 05/12/19 Rx .MEDSUPPLY #100 each B-D Syringe 3 mL #100 each 05/28/19 Rx Pyridostigmine [place] [Regonol] 10 mg IM BID 08/15/19 History Allergies Allergy/AdvReac Type Severity Reaction Status Date / Time Sulfa (Sulfonamide Allergy Severe Anaphylaxis Verified 08/15/19 23:02 Antibiotics) adhesive tape AdvReac Mild Blister Verified 08/15/19 23:02 metoclopramide [From Reglan] AdvReac Mild Anxiety Verified 08/15/19 23:02 steri strips Allergy Severe Blister Uncoded 02/17/19 17:22 Medical - CN: Exam - Constitutional Vitals: Temp Pulse Resp BP Pulse Ox 98.4 F 113 H 18 125/75 91 09/23/19 23:51 09/23/19 23:51 09/23/19 23:51 09/23/19 23:51 09/23/19 23:51 General appearance: morbidly obese Exam: On mechanical ventilation Head normocephalic Oral cavity ET tube No ear nose discharge No subconjunctival pallor Neck lymphadenopathy S1-S2 tachycardia 140s, sinus on security monitor Diminished breath sounds bases Abdomen pendulous distended/ostomy bag copious liquid output Lower extremity no lymphedema cyanosis clubbing Skin no suspicious lesion Psych on mechanical ventilation and ICU sedation Neuro could not performed Medical - CN: Result - Labs CBC & Chem 7: 09/24/19 05:00 09/24/19 04:59 Labs: Urine 09/23/19 Range/Units 23:50 Urine Color Yellow Urine Appearance Clear Urine pH 6.0 (5.0-9.0) Ur Specific [place] 1.017 (1.000-1.035) Urine Protein Neg (NEG) mg/dL Urine Glucose (UA) Negative (NEG) mg/dL Medical - CN: A/P (1) Sepsis with acute hypoxic respiratory failure Status: Acute Assessment and plan: * Acute hypoxic respiratory failure secondary to acute lung injury from major aspiration-on mechanical ventilation. Repeat ABG 7.42/34/56 on PEEP 8 FiO2 35%. * Mechanical ventilation for hypoxic respiratory failure . Continue midazolam/fentanyl for ICU sedation. Continue serial blood gas, chest imaging and management per protocol. * Septic shock secondary to aspiration pneumonia. Continue antibiotic coverage. Pressors and crystalloids. Monitor renal function. Check central venous oxygen sats. Serial venous lactate. Current lactic acid 3.5 * A LI/early ARDS secondary to aspiration pneumonia-continue aspiration precautions/lung protective ventilation/antibiotics * Hypokalemia 3.1 start potassium replacement * THANIA continue renal function monitoring. * Mild uncomplicated UTI/cystitis-on antibiotic coverage * Morbid obesity BMI 39-continue frequent turning/nutrition support/decubitus precautions * Bowel obstruction managed per surgery * DM type II continue prandial insulin * Stress ulcer prophylaxis on PPI * History of panhypopituitarism continue hydrocortisone/IV thyroxine * History of myasthenia gravis continue pyridostigmine * Prophylaxis heparin * Full code Plan * Critically ill Lime score 20. Mechanical ventilation * ICU sedation per protocol * Septic shock management per protocol * Serial chest imaging/blood gas and vent titration * IV hydrocortisone * Nutrition support Critical care time spent in excess of 45 minutes Additional 70 minutes spent on medical consultation/evaluation/stabilization/review of lab/blood gases/imaging and discussion with physician and family through the course of the day
--- NOTE | 2019-09-24 05:29 | Procedure Note ---
Procedures - Central Line Placement Right SC Consent obtained: verbal consent Date of Procedure: 09/24/19 Time out performed: Yes Patient placed on monitor/pulse ox: Yes MD prep: mask, sterile gown, sterile gloves, cap Central line prep: 2% Chlorhexidine scrub (X2) Local anesthesia used: other anesthetic (intubated emergently immediately prior) Ultrasound used for placement: No Central line lumen inserted: quad, 16 cm Post procedure: sutured in place, good blood return, all ports aspirated, flushed, capped, sterile dressing applied (per [facility] [employer]) Post procedure x-ray: tip of catheter in good position, no pneumothorax seen Patient tolerated procedure: well, no complications Complications: none Additional comments: called in for emergent intubation team unable to obtain adequate heme specimen for lab analysis IV access inadequate (L chest portacath) Proceeded with RSCV CVC placement wo problem. subsequent pCXR shows tip in good place, may be used. Counseled with family following, understand and agree. Appreciative. - Intubation Time out performed: Yes Date of Procedure: 09/24/19 (emergency, called in) Sedative: Ketamine Mg given: 200 Paralytic: Rocuronium ETT: ETCO2, BBS Mg given: 60 Laryngoscope: 3 Vocal Cord View: 1 ET tube size: 7 ET tube uncuffed: No Tube secured depth (cm): 24 Tube secured location: teeth Tube placement confirmation: visualized tube passing through cords, equal breath sounds bilaterally, no breath sounds over epigastrium, confirmation by capnometry # of Attempts: 1 Patient tolerated procedure: well, no complications Intubation complications: none Additional comments: called in from home for emergency intubation by Dr Currie for resp failure and hypotension. on arrival pt in ICU able to follow commands/weak, hypotensive and hypoxic, cool clammy and pale pt understands and agrees to ABRAHAM, family at bedside. pt induced, easy view, attempt X 1 wo problem. secured, pCXR indicates ETT low, pulled back 1 cm. RT now managing.
[2019-09-24] MEDS ORDERED: MIDAZOLAM PF 50 MG in 0.9 % SODIUM CHLORIDE 90 ML IV SCH (05:30)
[2019-09-24] MEDS ORDERED: fentaNYL 2,500 MCG in 0.9 % SODIUM CHLORIDE 200 ML IV SCH (05:30)
[2019-09-24] MEDS ORDERED: HEPARIN/NS 500 ML IV SCH ×3 (05:30→06:26)
--- NOTE | 2019-09-24 05:51 | General Surgery Progress Note ---
Subjective Narrative: Note initiated : 09/24/19 at 5:46 am Service Date, if different from initiated Date: [] Patient: Dayanna Stephens 58 y/o F admitted on 09/22/19 for NAUSEA AND VOMITING. Chief Complaint: [] Contacted by nursing staff because the patient had had a sudden deterioration in status. It was noted that she was tachycardic in the 150 range with blood pressure in the 70 systolic range. She also had oxygen saturations that were said to be 50%. they were given some initial orders and she was transferred to the intensive care unit. When I arrived, the patient was on a nonrebreathing mask with oxygen saturation of about 80%. Her heart rate was 160 and regular. Blood pressure was in the 70s. She was receiving 2 L of IV saline, had open rate. Anesthesia was contacted and intubation was carried out. Labs were drawn and have not returned as yet. Her initial blood gases did show a pH of 7.49 with PO2 in the 70s and PCO2 in the 40s. Another central line was placed and the patient is now stabilized. Her blood pressure is in the 150 systolic range. Her heart rate is still about 130, but regular. Preliminary assessment is she has major volume shifts and relative hypotension related to measure output through her stoma and nasogastric tube. It is anticipated that she will respond to saline infusion and supportive ventilation. She is presently on levothyroxine but this will be titrated. Her chest x-ray does not show any evidence of congestive heart failure and there is no subphrenic air. Abdominal x-rays shows dilated loops of small bowel in the midabdomen, but on crosstable lateral. There is no free air. Objective Temp Pulse Resp BP Pulse Ox 98.4 F 113 H 18 125/75 91 09/23/19 23:51 09/23/19 23:51 09/23/19 23:51 09/23/19 23:51 09/23/19 23:51 - Additional Data Intake & Output - Last 24 hours: Intake & Output 09/21/19 09/22/19 09/23/19 09/24/19 05:59 05:59 05:59 05:59 Intake Total 1000 2938 Output Total 1400 2800 Balance -400 138 Weight 228 lb 8 oz 228 lb 9.6 oz - Labs 09/22/19 21:13 09/22/19 21:13 Assessment and Plan (1) Chronic intestinal pseudo-obstruction Status: Acute Current Visit: Yes (2) Chronic use of steroids Problem details: for myasthenia gravis; 10+ years Status: Chronic Current Visit: No (3) Chronic, continuous use of opioids Status: Chronic Current Visit: No (4) Hypertension Status: Chronic Current Visit: No (5) Myasthenia gravis Status: Chronic Current Visit: No (6) LA (obstructive sleep apnea) Status: Chronic Current Visit: No (7) Obesity, Class II, BMI 35-39.9 Status: Chronic Current Visit: No - Time Spent With Patient Total time spent is greater than 50% in coordination of care (as documented) at patient's floor/unit and/or counseling patient:
[2019-09-24 05:52] LABS: Hematocrit 33.7 % (36.0-48.0); Hemoglobin 10.6 g/dL (12.0-15.0); Mean Cell Volume 85.9 fL (80.0-100.0); Mean Corpuscular HGB Conc 31.4 g/dL (31.0-36.0); Mean Platelet Volume 7.5 fL (7.4-10.4); Platelet Count 471 K/mcL (140-440); RBC 3.92 M/mcL (4.00-5.20); Red Cell Distribution Width 20.6 % (11.5-14.5); WBC 7.6 K/mcL (4.5-11.0)
--- NOTE | 2019-09-24 05:53 | XRay Report ---
CLINICAL INFORMATION: History of colectomy. Recent surgery. Abdominal pain and dilated small bowel TECHNIQUE: Water-soluble contrast material was administered via the NG tube. COMPARISON: Multiple previous examinations FINDINGS: Contrast material is almost completely through the small bowel by 3 hours postingestion. Examination at 15 hours shows some residual contrast but most of the contrast material has passed into the patient's ileostomy bag. Findings are not consistent with high-grade mechanical small bowel obstruction. IMPRESSION: Almost complete passage of contrast material by 15 hours postingestion as above Interpreted and Authenticated by: All Cormier 09/29/19
--- NOTE | 2019-09-24 05:56 | XRay Report ---
CLINICAL INFORMATION:Hypoxia TECHNIQUE: Supine portable chest x-ray COMPARISON: Multiple previous chest x-rays. Most recent previous chest x-rays dated 09/13/2019 FINDINGS: Endotracheal tube 3 cm above the jose miguel Esophagogastric tube in the stomach Chemotherapy infusion port and small caliber central venous catheter in the right atrium Right central venous catheter in the superior vena cava Bilateral pulmonary parenchymal infiltrates, worse at the right lung base. Findings may be due to pulmonary edema but pneumonia is possible. Clinical correlation and follow-up radiographs recommended IMPRESSION: Probable pulmonary edema Interpreted and Authenticated by: All Cormier 09/24/19
[2019-09-24 05:57] LABS: ALT/SGPT 31 U/l (0-40); AST/SGOT 28 U/l (0-37); Albumin 2.5 gm/dL (3.2-5.2); Alkaline Phosphatase 97 U/L (39-117); Bilirubin,Direct < 0.2 mg/dL (0.0-0.3); Bilirubin,Total 0.3 mg/dL (0.0-1.0); Blood Urea Nitrogen 12 mg/dl (6-20); Carbon Dioxide 23 mmol/L (22-30); Chloride 99 mmol/L (96-108); Globulin 2.6 gm/dL (2.2-3.7); Glomerular Filtration Rate 62; Glucose 143 mg/dL (70-105); Lactate Dehydrogenase 234 U/L (94-250); Phosphorous 3.9 mg/dL (2.7-4.5); Uric Acid 6.1 mg/dL (2.5-8.0)
[2019-09-24 06:02] LABS: Triglycerides 303 mg/dl (<150)
[2019-09-24 06:08] LABS: T4 (Thyroxine) 8.7 ug/dl (5.0-12.0)
[2019-09-24] MEDS ORDERED: ACETAMINOPHEN 325 MG TABLET PO PRN (06:26)
[2019-09-24] MEDS ORDERED: PROMETHAZINE 25 MG/ML VIAL IV PRN (06:26)
[2019-09-24 06:41] LABS: Anisocytosis 1+ (NONE SEEN); Band Neutrophils % 15 % (0-10); Eosinophils % (Manual) 2 % (0-7); Hypochromasia 1+ (NONE SEEN); Lymphocytes % 19 % (15-49); Metamyelocytes % 2 % (0-0); Monocytes % (Manual) 3 % (1-12); Platelet Estimate INCREASED (NORMAL); Polychromasia 1+ (NONE SEEN); RBC Morphology ABNORM (NORMAL); Segmented Neutrophils % 59 % (38-78)
[2019-09-24] MEDS: PIPERACILLIN SODIUM/TAZOBACTAM 3.375 GM in DEXTROSE 5% IN WATER 50 ML IV SCH ×3 (07:00→17:39)
[2019-09-24] MEDS ORDERED: POTASSIUM CHLORIDE 40 MEQ in DEXTROSE 5% IN WATER 500 ML IV ONE (07:24)
[2019-09-24] MEDS: MAGNESIUM SULFATE 4 GM/100 ML BAG IV SCH ×2 (07:50→10:45)
[2019-09-24] MEDS ORDERED: CHLORHEXIDINE GLUCONATE 1 ML ORAL.SOL SWABMOUTH SCH (09:00)
[2019-09-24] MEDS: 0.9 % SODIUM CHLORIDE 10 ML SYRINGE IV PRN ×4 (09:10→17:39)
[2019-09-24] MEDS: methylPREDNISolone SOD SUCC 125 MG/2 ML VIAL IV SCH ×2 (09:56→20:44)
[2019-09-24] MEDS: HEPARIN 5,000 UNIT/ML VIAL SQ SCH ×2 (09:57→20:45)
[2019-09-24] MEDS: CHLORHEXIDINE GLUCONATE 1 ML ORAL.SOL SWABMOUTH SCH ×2 (09:58→20:46)
[2019-09-24] MEDS: ACETAMINOPHEN 1,000 MG/100 ML BOTTLE IV PRN (10:40)
[2019-09-24] MEDS: MIDAZOLAM PF 50 MG in 0.9 % SODIUM CHLORIDE 90 ML IV SCH ×2 (11:18→23:57)
[2019-09-24] MEDS: PYRIDOSTIGMINE BROMIDE 10 MG/2 ML ML SC SCH ×2 (12:42→18:55)
[2019-09-24] MEDS: HYDROCORTISONE SOD SUCC 100 MG VIAL IV SCH ×2 (13:45→23:00)
--- NOTE | 2019-09-24 16:26 | General Surgery Progress Note ---
Subjective Patient reports: fever Narrative: Note initiated : 09/24/19 at 4:25 pm Service Date, if different from initiated Date: [] Patient: Dayanna Stephens 58 y/o F admitted on 09/22/19 for NAUSEA AND VOMITING. Chief Complaint: [patient has been febrile most of the day but is now 99F. She's stabilized hemodynamically And her vasopressors have been decreased.. Urine output is still down but should increase over the next few hours as her intravascular volume stabilizes .] Objective Temp Pulse Resp BP Pulse Ox 99.3 F H 94 H 17 99/74 100 09/24/19 16:01 09/24/19 15:31 09/24/19 16:01 09/24/19 16:01 09/24/19 16:01 - Additional Data Intake & Output - Last 24 hours: Intake & Output 09/22/19 09/23/19 09/24/19 09/25/19 05:59 05:59 05:59 05:59 Intake Total 1000 4949 4241 Output Total 1400 2800 400 Balance -400 2149 3841 Weight 228 lb 8 oz 228 lb 9.6 oz - General physical appearance chronically ill, other (intubated and sedated) - Eyes PERRL, normal ocular movement - ENT normal pinna, normal nares, normal mucosa, no hearing loss, no congestion - Neck no masses, no bruits, trachea midline, no lymphadenopathy, no venous distension - Respiratory normal expansion, clear to auscultation - Cardiovascular Cardiovascular exam: Present: RRR, +S1, +S2, tachycardia. Absent: JVD - Abdomen non tender ( abdomen is nontender and soft and nondistended) - Labs 09/24/19 05:00 09/24/19 04:59 Diabetes panel 09/24/19 Range/Units 04:59 Sodium 139 (133-145) mmol/L Potassium 3.1 L (3.3-5.1) mmol/L Chloride 99 (96-108) mmol/L Carbon Dioxide 23 (22-30) mmol/L BUN 12 (6-20) mg/dl Creatinine 1.0 (0.6-1.1) mg/dl Glucose 143 H (70-105) mg/dL Calcium 7.0 L (8.6-10.4) mg/dl AST 28 (0-37) U/l ALT 31 (0-40) U/l Alkaline Phosphatase 97 (39-117) U/L Total Protein 5.1 L (5.9-8.4) gm/dL Albumin 2.5 L (3.2-5.2) gm/dL Triglycerides 303 H (<150) mg/dl Thyroid panel 09/24/19 Range/Units 05:00 TSH 1.00 (0.27-5.01) uIU/ml Thyroxine (T4) 8.7 (5.0-12.0) ug/dl Calcium panel 09/24/19 Range/Units 04:59 Calcium 7.0 L (8.6-10.4) mg/dl Phosphorus 3.9 (2.7-4.5) mg/dL Albumin 2.5 L (3.2-5.2) gm/dL Pituitary panel 09/24/19 09/24/19 Range/Units 04:59 05:00 Sodium 139 (133-145) mmol/L Potassium 3.1 L (3.3-5.1) mmol/L Chloride 99 (96-108) mmol/L Carbon Dioxide 23 (22-30) mmol/L BUN 12 (6-20) mg/dl Creatinine 1.0 (0.6-1.1) mg/dl Glucose 143 H (70-105) mg/dL Calcium 7.0 L (8.6-10.4) mg/dl TSH 1.00 (0.27-5.01) uIU/ml Thyroxine (T4) 8.7 (5.0-12.0) ug/dl Adrenal panel 09/24/19 Range/Units 04:59 Sodium 139 (133-145) mmol/L Potassium 3.1 L (3.3-5.1) mmol/L Chloride 99 (96-108) mmol/L Carbon Dioxide 23 (22-30) mmol/L BUN 12 (6-20) mg/dl Creatinine 1.0 (0.6-1.1) mg/dl Glucose 143 H (70-105) mg/dL Calcium 7.0 L (8.6-10.4) mg/dl Total Bilirubin 0.3 (0.0-1.0) mg/dL AST 28 (0-37) U/l ALT 31 (0-40) U/l Alkaline Phosphatase 97 (39-117) U/L Total Protein 5.1 L (5.9-8.4) gm/dL Albumin 2.5 L (3.2-5.2) gm/dL Assessment and Plan (1) Acute respiratory insufficiency Status: Acute Assessment and plan: We will continue ventilatory support Current Visit: Yes (2) Chronic intestinal pseudo-obstruction Status: Acute Current Visit: Yes (3) Chronic use of steroids Problem details: for myasthenia gravis; 10+ years Status: Chronic Assessment and plan: Solu-Medrol 62 mg IV every 12 hours Current Visit: No (4) Hypertension Status: Chronic Current Visit: No (5) Myasthenia gravis Status: Chronic Current Visit: No (6) LA (obstructive sleep apnea) Status: Chronic Current Visit: No (7) Obesity, Class II, BMI 35-39.9 Status: Chronic Current Visit: No - Time Spent With Patient Total time spent is greater than 50% in coordination of care (as documented) at patient's floor/unit and/or counseling patient:
[2019-09-24] MEDS ORDERED: DEXTROSE 50% 50 ML VIAL IV PRN (17:21)
[2019-09-24] MEDS ORDERED: DEXTROSE 31 GM ORAL.SUSP PO PRN (17:21)
[2019-09-24] MEDS: INSULIN LISPRO 1 UNIT/0.01 ML UNIT SQ SCH (17:30)
[2019-09-24] MEDS: 0.9 % SODIUM CHLORIDE 10 ML SYRINGE IV SCH (23:02)
[2019-09-24 23:24] LABS: ABG Methemoglobin 0.2 % (0.4-1.5); Total Hemoglobin 9.2 gm/dL (12.0-15.0); VBG Base Excess 0 (-2.0-2.0); VBG HCO3 24.3 mmol/L (24.0-28.0); VBG Oxygen Saturation 95.3 % (40.0-70.0); VBG PCO2 37.9 mmHg (41.0-51.0); VBG PH 7.43 U (7.32-7.42); VBG PO2 126 mmHg (25-40); VBG Total CO2 25.5 mmol/L (25.0-29.0)
[2019-09-25] MEDS: PIPERACILLIN SODIUM/TAZOBACTAM 3.375 GM in DEXTROSE 5% IN WATER 50 ML IV SCH ×5 (00:21→23:56)
[2019-09-25] MEDS: INSULIN LISPRO 1 UNIT/0.01 ML UNIT SQ SCH ×4 (00:21→17:14)
[2019-09-25] MEDS: PYRIDOSTIGMINE BROMIDE 10 MG/2 ML ML SC SCH ×6 (00:22→23:56)
[2019-09-25] MEDS ORDERED: fentaNYL 50 ML ONE (02:58)
[2019-09-25] MEDS: fentaNYL 2,500 MCG in 0.9 % SODIUM CHLORIDE 200 ML IV SCH ×2 (03:22→10:50)
[2019-09-25] MEDS: LACTATED RINGERS 1,000 ML IV SCH ×4 (03:26→17:49)
[2019-09-25] MEDS: MIDAZOLAM PF 50 MG in 0.9 % SODIUM CHLORIDE 90 ML IV SCH ×4 (03:27→15:52)
[2019-09-25 05:30] LABS: Basophils # (Auto) 0 K/mcL (0.0-0.3); Basophils % (Auto) 0 % (0.0-2.0); Eosinophils # (Auto) 0 K/mcL (0.0-0.7); Eosinophils % (Auto) 0 % (0.0-7.0); Granulocytes % (Auto) 91.8 % (38.0-78.0); Hematocrit 27.9 % (36.0-48.0); Hemoglobin 8.8 g/dL (12.0-15.0); Lymphocytes # (Auto) 0.7 K/mcL (1.5-4.8); Lymphocytes % (Auto) 4.2 % (15.5-49.0); Mean Cell Volume 85.9 fL (80.0-100.0); Mean Corpuscular HGB Conc 31.6 g/dL (31.0-36.0); Mean Platelet Volume 7.2 fL (7.4-10.4); Monocytes # (Auto) 0.7 K/mcL (0.1-0.9); Platelet Count 347 K/mcL (140-440); RBC 3.25 M/mcL (4.00-5.20); WBC 17.5 K/mcL (4.5-11.0)
[2019-09-25] MEDS ORDERED: MIDAZOLAM PF 50 MG in 0.9 % SODIUM CHLORIDE 90 ML IV SCH (05:30)
[2019-09-25 06:02] LABS: proBNP 371.2 pg/ml (0-125)
[2019-09-25 06:10] LABS: ALT/SGPT 25 U/l (0-40); AST/SGOT 15 U/l (0-37); Albumin 2.4 gm/dL (3.2-5.2); Albumin/Globulin Ratio 0.9 (1.0-2.3); Alkaline Phosphatase 100 U/L (39-117); Bilirubin,Direct < 0.2 mg/dL (0.0-0.3); Bilirubin,Total 0.2 mg/dL (0.0-1.0); Blood Urea Nitrogen 14 mg/dl (6-20); Calcium 6.7 mg/dl (8.6-10.4); Carbon Dioxide 25 mmol/L (22-30); Chloride 103 mmol/L (96-108); Globulin 2.6 gm/dL (2.2-3.7); Glomerular Filtration Rate 96; Glucose 202 mg/dL (70-105); Lactate Dehydrogenase 254 U/L (94-250); Triglycerides 89 mg/dl (<150); Uric Acid 2.9 mg/dL (2.5-8.0)
[2019-09-25] MEDS: HYDROCORTISONE SOD SUCC 100 MG VIAL IV SCH ×3 (06:14→21:39)
--- NOTE | 2019-09-25 08:13 | XRay Report ---
CLINICAL INFORMATION:Hypoxia. Previous intubation TECHNIQUE: AP portable chest x-ray COMPARISON: Previous examinations dated 09/24/2019, 09/13/2019, 08/23/2019 FINDINGS:No change in position of endotracheal tube, right central venous catheter, left chemotherapy infusion port and catheter and esophagogastric tube. Persistent elevation of the right hemidiaphragm. Lungs are improved with near complete resolution of probable pulmonary edema. No acute parenchymal infiltrate. IMPRESSION: Improved chest x-ray Interpreted and Authenticated by: All Cormier 09/25/19
[2019-09-25] MEDS: 0.9 % SODIUM CHLORIDE 10 ML SYRINGE IV PRN ×5 (08:40→14:17)
[2019-09-25] MEDS: CALCIUM GLUCONATE 4.65 MEQ/10 ML VIAL IV SCH ×2 (08:42→20:21)
[2019-09-25] MEDS: CHLORHEXIDINE GLUCONATE 1 ML ORAL.SOL SWABMOUTH SCH ×2 (08:43→20:21)
[2019-09-25] MEDS: 0.9 % SODIUM CHLORIDE 10 ML SYRINGE IV SCH ×2 (08:43→20:21)
[2019-09-25] MEDS: HEPARIN 5,000 UNIT/ML VIAL SQ SCH ×2 (08:43→20:21)
[2019-09-25] MEDS: ACETAMINOPHEN 1,000 MG/100 ML BOTTLE IV PRN (10:05)
--- NOTE | 2019-09-25 10:23 | Internal Med Progress Note ---
Medical - PN: Subj Patient information: Note initiated : 09/25/19 at 10:20 am Service Date, if different from initiated Date: [] Patient: Dayanna Stephens a 58 y/o F admitted on 09/22/19 for NAUSEA AND VOMITING. Chief Complaint: [] Interval history: Ms. Stephens is a 58 year old morbidly obese F with a complex medical history of parathyroidism , chronic hypocalcemia, polyglandular syndrome, sarcoidosis, myasthenia gravis and multiple bowel obstruction/abdominal surgeries with colostomy who underwent recent hospitalization at [facility] following a bowel obstruction and underwent surgery x2 between August 16 in September 21. Patient was discharged to care center however due to worsening abdominal pain and nausea vomiting she was admitted on 09/23 under surgical service for management of bowel obstruction. She underwent NG decompression. Early this morning patient was found to be increasingly dyspneic with sats in mid 60s following episode of nausea and large emesis. Patient was evaluated by surgery and underwent intubation due to profound hypoxia and was initiated on mechanical ventilation. Systolics was around 80 and was started on Levophed after crystalloid boluses. Subsequently hospitalist service was consulted for management of mechanical ventilation and shock/hypoxic respiratory failure At the time evaluation patient is on mechanical ventilation. Family members are present. Most of the history is obtained from review of medical records and Dr. Currie surgeon Patient has an ostomy which was noted to be draining copious amount of liquid output She is febrile at 101.1. Is currently on vasopressors at 10 mics. She received 3 L of crystalloids. Martinez is draining dark urine. Right subclavian central line was secured by anesthesia. Initial blood gas 7.35/40 2/64 on 70% FiO2 PEEP 5, plateau pressure 23 peak pressure 12, tidal volume 450 rate 14. 12/13-patient remains critically ill on mechanical ventilation. Copious NG output. Patient responding to commands. Started on stress dose hydrocortisone in the setting of myasthenia and previously being on prednisone. Off pressors. Map at goal. ABG reviewed 7.42/34/56. Interval chest imaging slightly improved however on PEEP 8/FiO2 50% with large AA gradient and PaO2 FiO2 ratio around 100. Patient will be a difficult candidate for ventilator weaning in the setting of myasthenia and morbid obesity with ALI/early ARDS picture. White count 17.5, central venous oxygen sat 95, urine output 30 cc an hour. Net 6500 cc positive fluid balance in the last 24 hours. Continue Zosyn. [place] II score 21 - Constitutional Vitals: Vital Signs Temp Pulse Resp BP Pulse Ox 100.0 F H 106 H 14 112/70 94 09/25/19 10:05 09/25/19 10:01 09/25/19 09:38 09/25/19 10:01 09/25/19 10:01 Period Temp Pulse Resp BP Sys/[place]ule[place] Pulse Ox Last 24 Hr 98.7 F-101.6 F 67-139 12-34 84-193/50-134 91-100 Intake and Output 09/24/19 09/25/19 09/25/19 21:59 05:59 13:59 Intake Total 2328 858 309 Output Total 751 694 148 Balance 1577 164 161 Intake & Output: Intake & Output 09/24/19 09/25/19 09/25/19 21:59 05:59 13:59 Intake Total 2328 858 309 Output Total 751 694 148 Balance 1577 164 161 Intake: IV 2328 858 309 Sodium Chloride 0.9% 250 ml @ 500 87 20 mls/hr IV .[id number] [facility] Rx#: [id number] Lactated Ringers 1,000 ml @ 150 1655 668 mls/hr IV .[id number] [facility] Rx#: [id number] Versed 50 mg In Sodium Chloride 47 53 58 0.9% 90 ml @ 0.02 MG/KG/HR 4. 148 mls/hr IV Q6H [facility] Rx#: [id number] Levophed 16 mg In Sodium 42 76 Chloride 0.9% 234 ml @ 10 MCG/ MIN 9.375 mls/hr IV Q24H [facility] Rx #:[id number] Zosyn 3.375 gm In Dextrose 5% 50 50 50 in Water 50 ml @ 100 mls/hr IV Q6H [facility] Rx#:[id number] fentaNYL 2,500 MCG In Sodium 34 125 Chloride 0.9% 200 ml @ 25 MCG/ HR 2.5 mls/hr IV Q24H [facility] Rx#: [id number] Output: Gastric Drainage 450 NG/OG 450 Urine Catheter Amount 301 244 148 Other 450 Other: Urine Appearance Clear Clear Sediment Uretheral (Martinez) Clear Sediment Cloudy Sediment Urine Color Bright Yellow Bright Yellow Dark Yellow Uretheral (Martinez) Bright Yellow Bright Yellow Dark Yellow Urine Odor Normal Stool Color Brown Brown Stool Consistency Liquid Liquid Watery Watery General appearance: morbidly obese Exam: On mechanical ventilation Martinez is draining clear urine Ostomy output minimal NG output bilious Diminished breath sounds bases Alert Medical - PN: Obj Da - Labs CBC & Chem 7: 09/25/19 04:00 09/25/19 04:00 Labs: Abnormal Lab Results 09/25/19 09/25/19 09/24/19 04:00 04:00 22:50 WBC 17.5 H RBC 3.25 L Hgb 8.8 L Hct 27.9 L RDW 21.0 H Plt Count MPV 7.2 L Gran % 91.8 H Lymph % (Auto) 4.2 L Gran # 16.1 H Lymph # (Auto) 0.7 L Band Neutrophils % Metamyelocytes % RBC Morphology Polychromasia Hypochromasia Anisocytosis ABG Methemoglobin 0.2 L VBG pH 7.43 H VBG pCO2 37.9 L VBG pO2 126 H VBG O2 Saturation 95.3 H VBG Lactic Acid Carboxyhemoglobin 3.4 H Total Hemoglobin 9.2 L Potassium Chloride Anion Gap Glucose 202 H Calcium 6.7 L Magnesium Alkaline Phosphatase Lactate Dehydrogenase 254 H C-Reactive Protein NT-Pro-B Natriuret Pep 371.2 H Total Protein 5.0 L Albumin 2.4 L Albumin/Globulin Ratio 0.9 L Triglycerides Urine Ketones Ur Leukocyte Esterase Urine RBC Urine WBC Hyaline Casts Urine Mucus 09/24/19 09/24/19 09/24/19 05:00 05:00 04:59 WBC RBC 3.92 L Hgb 10.6 L Hct 33.7 L RDW 20.6 H Plt Count 471 H MPV Gran % Lymph % (Auto) Gran # Lymph # (Auto) Band Neutrophils % 15 H Metamyelocytes % 2 H RBC Morphology Abnorm A Polychromasia 1+ A Hypochromasia 1+ A Anisocytosis 1+ A ABG Methemoglobin VBG pH VBG pCO2 VBG pO2 VBG O2 Saturation VBG Lactic Acid 3.2 H Carboxyhemoglobin Total Hemoglobin Potassium 3.1 L Chloride Anion Gap 17.0 H Glucose 143 H Calcium 7.0 L Magnesium 1.1 L Alkaline Phosphatase Lactate Dehydrogenase C-Reactive Protein NT-Pro-B Natriuret Pep Total Protein 5.1 L Albumin 2.5 L Albumin/Globulin Ratio Triglycerides 303 H Urine Ketones Ur Leukocyte Esterase Urine RBC Urine WBC Hyaline Casts Urine Mucus 09/23/19 09/22/19 09/22/19 23:50 21:13 21:13 WBC 12.1 H RBC Hgb 10.5 L Hct 33.5 L RDW 19.4 H Plt Count 558 H MPV Gran % 84.3 H Lymph % (Auto) 8.6 L Gran # 10.3 H Lymph # (Auto) 1.0 L Band Neutrophils % Metamyelocytes % RBC Morphology Polychromasia Hypochromasia Anisocytosis ABG Methemoglobin VBG pH VBG pCO2 VBG pO2 VBG O2 Saturation VBG Lactic Acid Carboxyhemoglobin Total Hemoglobin Potassium Chloride 90 L Anion Gap 17.0 H Glucose 160 H Calcium 8.3 L Magnesium Alkaline Phosphatase 132 H Lactate Dehydrogenase C-Reactive Protein 3.6 H NT-Pro-B Natriuret Pep Total Protein Albumin Albumin/Globulin Ratio 0.9 L Triglycerides Urine Ketones 20 A Ur Leukocyte Esterase 75 A Urine RBC 3 H Urine WBC 12 H Hyaline Casts 3 H Urine Mucus Many A Meds: Medications Acetaminophen (Tylenol) 650 mg PO Q6HP PRN PRN Reason: PAIN/FEVER > 101 Calcium Gluconate (Calcium Gluconate) 9.3 meq IV BID [facility] Stop: 09/30/19 09:00 Last Admin: 09/25/19 08:42 Dose: 9.3 meq Documented by: Chlorhexidine Gluconate (Peridex) 15 ml SWABMOUTH BID [facility] Last Admin: 09/25/19 08:43 Dose: 15 ml Documented by: Dextrose (Dextrose 50%) 0 ml IV UD PRN PRN Reason: Hypoglycemia Diagnostic Test (Pha) (Accu-Chek) 1 each FS Q6 [facility] Last Admin: 09/25/19 06:21 Dose: 1 each Documented by: Glucose (Insta-Glucose) 15 gm PO PRN PRN PRN Reason: Hypoglycemia Heparin Sodium (Porcine) (Heparin) 5,000 unit SQ Q12 [facility] Last Admin: 09/25/19 08:43 Dose: 5,000 unit Documented by: Hydrocortisone Sodium Succinate (Solu-Cortef) 50 mg IV Q8 [facility] Last Admin: 09/25/19 06:14 Dose: 50 mg Documented by: Hydromorphone HCl (Dilaudid) 1 mg IV Q2HP PRN; Protocol PRN Reason: Per Pain Protocol Fentanyl 2,500 mcg/ Sodium (Chloride) 250 mls @ 2.5 mls/hr IV Q24H [facility]; Protocol Last Titration: 09/25/19 07:12 Dose: 50 mcg/hr, 5 mls/hr Documented by: Heparin Sodium/Sodium Chloride (Heparin/Ns) 500 mls @ 0 mls/hr IV .Q0M [facility]; Protocol Lactated Ringer's (Lactated Ringers) 1,000 mls @ 150 mls/hr IV .Q6H40M [facility] Last Admin: 09/25/19 03:26 Dose: 100 mls/hr Documented by: Norepinephrine Bitartrate 16 (mg/ Sodium Chloride) 250 mls @ 9.375 mls/hr IV Q24H [facility]; Protocol Sodium Chloride (Sodium Chloride 0.9%) 250 mls @ 20 mls/hr IV .[id number] [facility] Last Admin: 09/25/19 00:00 Dose: 15 mls/hr Documented by: Heparin Sodium/Sodium Chloride (Heparin/Ns) 500 mls @ 0 mls/hr IV .Q0M [facility]; Protocol Piperacillin Sod/Tazobactam (Sod 3.375 gm/ Dextrose) 50 mls @ 100 mls/hr IV Q6H [facility]; Protocol Last Infusion: 09/25/19 06:45 Dose: Infused Documented by: Acetaminophen (Ofirmev) 1,000 mg in 100 mls @ 200 mls/hr IV Q6HP PRN; Protocol PRN Reason: PAIN/FEVER > 101 Last Admin: 09/25/19 10:05 Dose: 200 mls/hr Documented by: Midazolam HCl 50 mg/ Sodium (Chloride) 100 mls @ 4.148 mls/hr IV Q6H [facility]; Protocol Last Titration: 09/25/19 07:12 Dose: 0.02 mg/kg/hr, 4 mls/hr Documented by: Insulin Human Lispro (Humalog) 0 unit SQ Q6 [facility]; Protocol Last Admin: 09/25/19 06:24 Dose: 4 units Documented by: Naloxone HCl (Narcan) 0.4 mg IV ONCE PRN PRN Reason: Opiate Reversal Promethazine HCl (Phenergan) 12.5 mg IV Q6HP PRN PRN Reason: Nausea And Vomiting Pyridostigmine [place] (Regonol) 10 mg SC Q6 [facility] Last Admin: 09/25/19 06:12 Dose: 10 mg Documented by: Sodium Chloride (Saline Flush) 10 ml IV UD PRN PRN Reason: FLUSH Last Admin: 09/24/19 17:39 Dose: 10 ml Documented by: Sodium Chloride (Saline Flush) 10 ml IV Q12 [facility] Last Admin: 09/25/19 08:43 Dose: 10 ml Documented by: - ABG Interpretation ABG results: 09/24/19 22:50 ABG Methemoglobin 0.2 L VBG pH 7.43 H VBG pCO2 37.9 L VBG pO2 126 H VBG HCO3 24.3 VBG Total CO2 25.5 VBG O2 Saturation 95.3 H VBG Base Excess 0 Medical - PN: A/P - Time Spent With Patient Total time spent is greater than 50% in coordination of care (as documented) at patient's floor/unit and/or counseling patient: Greater than 35 minutes (Critical care time) (1) Sepsis with acute hypoxic respiratory failure Status: Acute Assessment and plan: * Acute hypoxic respiratory failure secondary to acute lung injury from major aspiration-PaO2 FiO2 ratio 100 with large AA gradient. Plateau pressure 18, peak pressure 23. Currently on PEEP 8 FiO2 50% FiO2. * Mechanical ventilation -continue per protocol, sedation on midazolam/fentanyl, ventilation per [facility]DS[facility] protocol with low tidal high PEEP. Patient will be a high risk candidate for vent weaning due to underlying myasthenia/morbid obesity. Will likely require transfer to tertiary center * Septic shock secondary to aspiration pneumonia. Resolved now off pressors. Status post 6005 cc crystalloid. Central venous oxygen sat 95, improving urine output * ALI/early ARDS secondary to aspiration pneumonitis-mechanical ventilation/aspiration precaution * Hypokalemia improving with replacement * Nutrition consider TPN * THANIA -improved creatinine. Improving urine output * Mild uncomplicated UTI/cystitis-on antibiotic coverage * Morbid obesity BMI 39-continue frequent turning/nutrition support/decubitus precautions * Bowel obstruction managed per surgery, on NG decompression * DM type II continue prandial insulin * Stress ulcer prophylaxis on PPI * History of panhypopituitarism continue stress dose hydrocortisone/IV thyroxine * History of myasthenia gravis continue pyridostigmine * Prophylaxis heparin * Full code Plan * Critically ill [place] score 19. * Mechanical ventilation and ICU sedation per protocol * Serial blood gas/chest imaging * Nutrition support/TPN * Possible transfer to tertiary center for further management in the setting of myasthenia gravis and risk for prolonged mechanical ventilation/weaning * Continue stress dose steroid Critical care time spent in excess of 45 minutes Current Visit: Yes Medical - PN: Qual - VTE Deep Vein Thrombosis/Pulmonary Embolism Present on Admission: No
[2019-09-25] MEDS: NOREPINEPHRINE BITARTRATE 16 MG in 0.9 % SODIUM CHLORIDE 234 ML IV SCH (10:51)
[2019-09-25] MEDS: 0.9 % SODIUM CHLORIDE 250 ML IV SCH ×2 (10:51)
[2019-09-25 11:01] LABS: ABG Methemoglobin 0.3 % (0.4-1.5); Total Hemoglobin 7.4 gm/dL (12.0-15.0); VBG Base Excess 2.7 (-2.0-2.0); VBG HCO3 26.7 mmol/L (24.0-28.0); VBG PH 7.46 U (7.32-7.42); VBG PO2 71 mmHg (25-40); VBG Total CO2 27.8 mmol/L (25.0-29.0)
[2019-09-25] MEDS: ALBUMIN HUMAN 25 GM/100 ML BAG IV SCH ×2 (13:06→18:33)
--- NOTE | 2019-09-25 14:36 | General Surgery Progress Note ---
Subjective Patient reports: feels better, flatus, bowel movement, fever Narrative: Note initiated : 09/25/19 at 2:34 pm Service Date, if different from initiated Date: [] Patient: Dayanna Stephens 58 y/o F admitted on 09/22/19 for NAUSEA AND VOMITING. Chief Complaint: [patient is clinically stable and is gradually improving. Ventilatory status is not optimal , but is acceptable. SaO2 is in good range. Chest x-ray is improved. ProBNP is minimal. Urine output is decreased, but this should improve over the next 24 hours without further supplementation. Since her albumin is down to 2.4. She will be given a doses of albumin. TPN will be started today.] Objective Temp Pulse Resp BP Pulse Ox 98.9 F 90 19 115/73 100 09/25/19 14:01 09/25/19 14:01 09/25/19 13:28 09/25/19 14:01 09/25/19 14:01 - Additional Data Intake & Output - Last 24 hours: Intake & Output 09/23/19 09/24/19 09/25/19 09/26/19 05:59 05:59 05:59 05:59 Intake Total 1000 4949 6346 1586 Output Total 1400 2800 1780 223 Balance -400 2149 4566 1363 Weight 228 lb 8 oz 227 lb 11.2 oz 227 lb 11.2 oz - General physical appearance no distress, chronically ill - Eyes PERRL, normal ocular movement - ENT normal pinna, normal nares, normal mucosa, no hearing loss, no congestion - Neck no masses, no bruits, trachea midline, no lymphadenopathy, no venous distension - Respiratory normal expansion, normal respiratory effort, clear to auscultation, other (no rales rhonchi or wheezes on auscultation) - Cardiovascular Cardiovascular exam: Present: normal rate and rhythm, tachycardia (. Heart rate is decreasing daily) - Abdomen non tender (. Abdomen is very soft. Tenderness nondistended; she has good active bowel sounds), bowel sounds (present), surgical scars (none), masses (none) - Integumentary no rash, no growths, no abnormal pigmentation - Neurologic normal coordination, normal sensation - Labs 09/25/19 04:00 09/25/19 04:00 Diabetes panel 09/25/19 Range/Units 04:00 Sodium 139 (133-145) mmol/L Potassium 3.4 (3.3-5.1) mmol/L Chloride 103 (96-108) mmol/L Carbon Dioxide 25 (22-30) mmol/L BUN 14 (6-20) mg/dl Creatinine 0.7 (0.6-1.1) mg/dl Glucose 202 H (70-105) mg/dL Calcium 6.7 L (8.6-10.4) mg/dl AST 15 (0-37) U/l ALT 25 (0-40) U/l Alkaline Phosphatase 100 (39-117) U/L Total Protein 5.0 L (5.9-8.4) gm/dL Albumin 2.4 L (3.2-5.2) gm/dL Triglycerides 89 (<150) mg/dl Calcium panel 09/25/19 Range/Units 04:00 Calcium 6.7 L (8.6-10.4) mg/dl Phosphorus 3.0 (2.7-4.5) mg/dL Albumin 2.4 L (3.2-5.2) gm/dL Pituitary panel 09/25/19 Range/Units 04:00 Sodium 139 (133-145) mmol/L Potassium 3.4 (3.3-5.1) mmol/L Chloride 103 (96-108) mmol/L Carbon Dioxide 25 (22-30) mmol/L BUN 14 (6-20) mg/dl Creatinine 0.7 (0.6-1.1) mg/dl Glucose 202 H (70-105) mg/dL Calcium 6.7 L (8.6-10.4) mg/dl Adrenal panel 09/25/19 Range/Units 04:00 Sodium 139 (133-145) mmol/L Potassium 3.4 (3.3-5.1) mmol/L Chloride 103 (96-108) mmol/L Carbon Dioxide 25 (22-30) mmol/L BUN 14 (6-20) mg/dl Creatinine 0.7 (0.6-1.1) mg/dl Glucose 202 H (70-105) mg/dL Calcium 6.7 L (8.6-10.4) mg/dl Total Bilirubin 0.2 (0.0-1.0) mg/dL AST 15 (0-37) U/l ALT 25 (0-40) U/l Alkaline Phosphatase 100 (39-117) U/L Total Protein 5.0 L (5.9-8.4) gm/dL Albumin 2.4 L (3.2-5.2) gm/dL Assessment and Plan (1) Acute respiratory insufficiency Status: Acute Assessment and plan: We will continue ventilatory support Current Visit: Yes (2) Chronic intestinal pseudo-obstruction Status: Acute Current Visit: Yes (3) Chronic use of steroids Problem details: for myasthenia gravis; 10+ years Status: Chronic Assessment and plan: Solu-Medrol 62 mg IV every 12 hours Current Visit: No (4) Hypertension Status: Chronic Current Visit: No (5) Myasthenia gravis Status: Chronic Current Visit: No (6) LA (obstructive sleep apnea) Status: Chronic Current Visit: No (7) Obesity, Class II, BMI 35-39.9 Status: Chronic Current Visit: No - Time Spent With Patient Total time spent is greater than 50% in coordination of care (as documented) at patient's floor/unit and/or counseling patient:
[2019-09-25] MEDS ORDERED: TPN PER PHARMACY IV SCH (14:45)
[2019-09-25] MEDS ORDERED: [UNRECOGNIZED DRUG - OTHER] IV SCH (16:00)
[2019-09-25] MEDS ORDERED: SODIUM CHLORIDE IV SCH (16:00)
[2019-09-25] MEDS ORDERED: CALCIUM GLUCONATE IV SCH (16:00)
[2019-09-25] MEDS ORDERED: MAGNESIUM SULFATE IV SCH (16:00)
[2019-09-25] MEDS ORDERED: FUROSEMIDE 20 MG/2 ML VIAL IV ONE (18:15)
[2019-09-26] MEDS: LACTATED RINGERS 1,000 ML IV SCH (03:03)
[2019-09-26] MEDS: ALBUMIN HUMAN 25 GM/100 ML BAG IV SCH ×4 (03:07→19:06)
[2019-09-26] MEDS: 0.9 % SODIUM CHLORIDE 250 ML IV SCH ×3 (03:10→20:48)
[2019-09-26] MEDS: NOREPINEPHRINE BITARTRATE 16 MG in 0.9 % SODIUM CHLORIDE 234 ML IV SCH (03:23)
[2019-09-26] MEDS: PYRIDOSTIGMINE BROMIDE 10 MG/2 ML ML SC SCH ×4 (05:25→23:50)
[2019-09-26] MEDS: HYDROCORTISONE SOD SUCC 100 MG VIAL IV SCH ×3 (05:25→21:29)
[2019-09-26] MEDS: PIPERACILLIN SODIUM/TAZOBACTAM 3.375 GM in DEXTROSE 5% IN WATER 50 ML IV SCH ×4 (05:26→23:49)
[2019-09-26] MEDS: INSULIN LISPRO 1 UNIT/0.01 ML UNIT SQ SCH ×5 (05:32→23:50)
[2019-09-26] MEDS: MIDAZOLAM PF 50 MG in 0.9 % SODIUM CHLORIDE 90 ML IV SCH ×2 (06:36→11:52)
[2019-09-26 06:42] LABS: Basophils # (Auto) 0 K/mcL (0.0-0.3); Basophils % (Auto) 0 % (0.0-2.0); Eosinophils # (Auto) 0 K/mcL (0.0-0.7); Eosinophils % (Auto) 0 % (0.0-7.0); Granulocytes % (Auto) 86.3 % (38.0-78.0); Hematocrit 21.1 % (36.0-48.0); Hemoglobin 6.7 g/dL (12.0-15.0); Lymphocytes # (Auto) 0.6 K/mcL (1.5-4.8); Lymphocytes % (Auto) 6.1 % (15.5-49.0); Mean Cell Volume 85.6 fL (80.0-100.0); Mean Corpuscular HGB Conc 31.8 g/dL (31.0-36.0); Mean Platelet Volume 7.2 fL (7.4-10.4); Monocytes # (Auto) 0.7 K/mcL (0.1-0.9); Monocytes % (Auto) 7.6 % (1.0-12.0); Platelet Count 221 K/mcL (140-440); RBC 2.47 M/mcL (4.00-5.20); Red Cell Distribution Width 20.8 % (11.5-14.5); WBC 9.3 K/mcL (4.5-11.0)
[2019-09-26 06:43] LABS: ALT/SGPT 16 U/l (0-40); AST/SGOT 7 U/l (0-37); Albumin/Globulin Ratio 1.4 (1.0-2.3); Alkaline Phosphatase 102 U/L (39-117); Bilirubin,Direct < 0.2 mg/dL (0.0-0.3); Bilirubin,Total 0.2 mg/dL (0.0-1.0); Blood Urea Nitrogen 14 mg/dl (6-20); Calcium 7.7 mg/dl (8.6-10.4); Carbon Dioxide 24 mmol/L (22-30); Chloride 102 mmol/L (96-108); Globulin 2.1 gm/dL (2.2-3.7); Glomerular Filtration Rate 101; Glucose 197 mg/dL (70-105); Lactate Dehydrogenase 166 U/L (94-250); Phosphorous 2.6 mg/dL (2.7-4.5); Triglycerides 132 mg/dl (<150)
[2019-09-26 06:45] LABS: Uric Acid 1.6 mg/dL (2.5-8.0)
[2019-09-26] MEDS ORDERED: 0.9 % SODIUM CHLORIDE 250 ML IV SCH (07:15)
[2019-09-26] MEDS ORDERED: LACTATED RINGERS 1,000 ML IV SCH (07:45)
[2019-09-26 07:52] LABS: POC Blood Urea Nitrogen 14 mg/dl (6-20); POC CO2 22 mmol/L (22-30); POC Chloride 103 mmol/L (96-108); POC Creatinine 0.6 mg/dl (0.6-1.1); POC Glucose, Random 164 mg/dL (70-105); POC Sodium 139 mmol/L (133-145)
[2019-09-26] MEDS: 0.9 % SODIUM CHLORIDE 10 ML SYRINGE IV PRN ×5 (07:53→17:30)
--- NOTE | 2019-09-26 08:26 | Internal Med Progress Note ---
Medical - PN: Subj Patient information: Note initiated : 09/26/19 at 8:23 am Service Date, if different from initiated Date: [] Patient: Dayanna Stephens a 58 y/o F admitted on 09/22/19 for NAUSEA AND VOMITING. Chief Complaint: [] Interval history: Ms. Stephens is a 58 year old morbidly obese F with a complex medical history of parathyroidism , chronic hypocalcemia, polyglandular syndrome, sarcoidosis, myasthenia gravis and multiple bowel obstruction/abdominal surgeries with colostomy who underwent recent hospitalization at [facility] following a bowel obstruction and underwent surgery x2 between August 16 in September 21. Patient was discharged to care center however due to worsening abdominal pain and nausea vomiting she was admitted on 09/23 under surgical service for management of bowel obstruction. She underwent NG decompression. Early this morning patient was found to be increasingly dyspneic with sats in mid 60s following episode of nausea and large emesis. Patient was evaluated by surgery and underwent intubation due to profound hypoxia and was initiated on mechanical ventilation. Systolics was around 80 and was started on Levophed after crystalloid boluses. Subsequently hospitalist service was consulted for management of mechanical ventilation and shock/hypoxic respiratory failure At the time evaluation patient is on mechanical ventilation. Family members are present. Most of the history is obtained from review of medical records and Dr. Currie surgeon Patient has an ostomy which was noted to be draining copious amount of liquid output She is febrile at 101.1. Is currently on vasopressors at 10 mics. She received 3 L of crystalloids. Martinez is draining dark urine. Right subclavian central line was secured by anesthesia. Initial blood gas 7.35/40 2/64 on 70% FiO2 PEEP 5, plateau pressure 23 peak pressure 12, tidal volume 450 rate 14. 12/13-patient remains critically ill on mechanical ventilation. Copious NG output. Patient responding to commands. Started on stress dose hydrocortisone in the setting of myasthenia and previously being on prednisone. Off pressors. Map at goal. ABG reviewed 7.42/34/56. Interval chest imaging slightly improved however on PEEP 8/FiO2 50% with large AA gradient and PaO2 FiO2 ratio around 100. Patient will be a difficult candidate for ventilator weaning in the setting of myasthenia and morbid obesity with ALI/early ARDS picture. White count 17.5, central venous oxygen sat 95, urine output 30 cc an hour. Net 6500 cc positive fluid balance in the last 24 hours. Continue Zosyn. Bristol II score 21 09/26-hemoglobin down to 6.7. 2 units PRBC transfusion. No obvious source of bleed. White count down from 17.5-9.3. Potassium down to 3 on replacement. Off vasopressors. PEEP 8 FiO2 50%. Diuresing well. Lower total fluid infusion to 100 cc an hour cumulative including TPN. Initiate gentle diuresis to opti reza lung compliance in anticipation of extubation. Improving AA gradient/PaO2 FiO2 ratio. Await interval chest imaging/blood gas. Anticipate extubation in the next 24 to 48 hours. Will require careful evaluation of RSBI/NIF/plateau pressures/pulmonary compliance in the setting of myasthenia for successful extubation. NG output 250 cc overnight bilious - Constitutional Vitals: Vital Signs Temp Pulse Resp BP Pulse Ox 99.7 F H 79 14 135/84 100 09/26/19 07:01 09/26/19 07:01 09/26/19 07:34 09/26/19 07:01 09/26/19 07:34 Period Temp Pulse Resp BP Sys/Archuleta Pulse Ox Last 24 Hr 98.7 F-100.0 F 61-111 - 91-148/56-91 93-100 Intake and Output 09/25/19 09/26/19 09/26/19 21:59 05:59 13:59 Intake Total 1507 1150 137 Output Total 1807 673 155 Balance -300 477 -18 Weight 332 lb 4 oz Intake & Output: Intake & Output 09/25/19 09/26/19 09/26/19 21:59 05:59 13:59 Intake Total 1507 1150 137 Output Total 1807 673 155 Balance -300 477 -18 Weight 332 lb 4 oz Intake: IV 1217 1150 86 Sodium Chloride 0.9% 250 ml @ 250 20 mls/hr IV .[id number] [facility] Rx#: [id number] Lactated Ringers 1,000 ml @ 770 514 0262 mls/hr IV .[id number] [facility] Rx#: [id number] Versed 50 mg In Sodium Chloride 42 36 0.9% 90 ml @ 0.02 MG/KG/HR 4. 148 mls/hr IV Q6H [facility] Rx#: [id number] Zosyn 3.375 gm In Dextrose 5% 50 50 50 in Water 50 ml @ 100 mls/hr IV Q6H [facility] Rx#:[id number] fentaNYL 2,500 MCG In Sodium 67 Chloride 0.9% 200 ml @ 25 MCG/ HR 2.5 mls/hr IV Q24H [facility] Rx#: [id number] IV - Manual Only 290 51 Output: Gastric Drainage 700 350 NG/OG 700 350 Urine Catheter Amount 1057 323 130 Stool 50 25 Other: Urine Appearance Clear Clear Cloudy Uretheral (Martinez) Sediment Clear Urine Color Pale Bright Yellow Bright Yellow Uretheral (Martinez) Dark Yellow Bright Yellow Bright Yellow Urine Odor Normal Stool Size Small Small Small Stool Color Green Green Brown Stool Consistency Loose Loose Liquid Loose General appearance: no acute distress Exam: Alert and respond to commands Right subclavian central line no erythema Port-A-Cath Symmetrical breath sounds bilaterally No telemetry events Martinez draining clear urine Abdomen colostomy bag liquid output Medical - PN: Obj Da - Labs CBC & Chem 7: 09/26/19 04:00 09/26/19 04:00 Labs: Abnormal Lab Results 09/26/19 09/26/19 09/26/19 07:25 04:00 04:00 WBC RBC 2.47 L Hgb 6.7 L* Hct 21.1 L POC Hct 20.0 L* RDW 20.8 H Plt Count MPV 7.2 L Gran % 86.3 H Lymph % (Auto) 6.1 L Gran # Lymph # (Auto) 0.6 L Band Neutrophils % Metamyelocytes % RBC Morphology Polychromasia Hypochromasia Anisocytosis ABG Methemoglobin VBG pH VBG pCO2 VBG pO2 VBG O2 Saturation VBG Base Excess VBG Lactic Acid Carboxyhemoglobin Total Hemoglobin POC Potassium 3.0 L Potassium 3.2 L Anion Gap Glucose 197 H POC Glucose 164 H Uric Acid 1.6 L Calcium 7.7 L POC WB Ioniz Calcium 0.90 L Phosphorus 2.6 L Magnesium Lactate Dehydrogenase NT-Pro-B Natriuret Pep Total Protein 5.1 L Albumin 3.0 L Globulin 2.1 L Albumin/Globulin Ratio Triglycerides Urine Ketones Ur Leukocyte Esterase Urine RBC Urine WBC Hyaline Casts Urine Mucus 09/25/19 09/25/19 09/25/19 10:28 04:00 04:00 WBC 17.5 H RBC 3.25 L Hgb 8.8 L Hct 27.9 L POC Hct RDW 21.0 H Plt Count MPV 7.2 L Gran % 91.8 H Lymph % (Auto) 4.2 L Gran # 16.1 H Lymph # (Auto) 0.7 L Band Neutrophils % Metamyelocytes % RBC Morphology Polychromasia Hypochromasia Anisocytosis ABG Methemoglobin 0.3 L VBG pH 7.46 H VBG pCO2 38.0 L VBG pO2 71 H VBG O2 Saturation 91.0 H VBG Base Excess 2.7 H VBG Lactic Acid Carboxyhemoglobin 4.2 H Total Hemoglobin 7.4 L POC Potassium Potassium Anion Gap Glucose 202 H POC Glucose Uric Acid Calcium 6.7 L POC WB Ioniz Calcium Phosphorus Magnesium Lactate Dehydrogenase 254 H NT-Pro-B Natriuret Pep 371.2 H Total Protein 5.0 L Albumin 2.4 L Globulin Albumin/Globulin Ratio 0.9 L Triglycerides Urine Ketones Ur Leukocyte Esterase Urine RBC Urine WBC Hyaline Casts Urine Mucus 09/24/19 09/24/19 09/24/19 22:50 05:00 05:00 WBC RBC 3.92 L Hgb 10.6 L Hct 33.7 L POC Hct RDW 20.6 H Plt Count 471 H MPV Gran % Lymph % (Auto) Gran # Lymph # (Auto) Band Neutrophils % 15 H Metamyelocytes % 2 H RBC Morphology Abnorm A Polychromasia 1+ A Hypochromasia 1+ A Anisocytosis 1+ A ABG Methemoglobin 0.2 L VBG pH 7.43 H VBG pCO2 37.9 L VBG pO2 126 H VBG O2 Saturation 95.3 H VBG Base Excess VBG Lactic Acid 3.2 H Carboxyhemoglobin 3.4 H Total Hemoglobin 9.2 L POC Potassium Potassium Anion Gap Glucose POC Glucose Uric Acid Calcium POC WB Ioniz Calcium Phosphorus Magnesium Lactate Dehydrogenase NT-Pro-B Natriuret Pep Total Protein Albumin Globulin Albumin/Globulin Ratio Triglycerides Urine Ketones Ur Leukocyte Esterase Urine RBC Urine WBC Hyaline Casts Urine Mucus 09/24/19 09/23/19 04:59 23:50 WBC RBC Hgb Hct POC Hct RDW Plt Count MPV Gran % Lymph % (Auto) Gran # Lymph # (Auto) Band Neutrophils % Metamyelocytes % RBC Morphology Polychromasia Hypochromasia Anisocytosis ABG Methemoglobin VBG pH VBG pCO2 VBG pO2 VBG O2 Saturation VBG Base Excess VBG Lactic Acid Carboxyhemoglobin Total Hemoglobin POC Potassium Potassium 3.1 L Anion Gap 17.0 H Glucose 143 H POC Glucose Uric Acid Calcium 7.0 L POC WB Ioniz Calcium Phosphorus Magnesium 1.1 L Lactate Dehydrogenase NT-Pro-B Natriuret Pep Total Protein 5.1 L Albumin 2.5 L Globulin Albumin/Globulin Ratio Triglycerides 303 H Urine Ketones 20 A Ur Leukocyte Esterase 75 A Urine RBC 3 H Urine WBC 12 H Hyaline Casts 3 H Urine Mucus Many A Meds: Medications Acetaminophen (Tylenol) 650 mg PO Q6HP PRN PRN Reason: PAIN/FEVER > 101 Calcium Gluconate (Calcium Gluconate) 9.3 meq IV BID [facility] Stop: 09/30/19 09:00 Last Admin: 09/25/19 20:21 Dose: 9.3 meq Documented by: Chlorhexidine Gluconate (Peridex) 15 ml SWABMOUTH BID [facility] Last Admin: 09/25/19 20:21 Dose: 15 ml Documented by: Dextrose (Dextrose 50%) 0 ml IV UD PRN PRN Reason: Hypoglycemia Diagnostic Test (Pha) (Accu-Chek) 1 each FS Q6 [facility] Last Admin: 09/26/19 05:32 Dose: 1 each Documented by: Glucose (Insta-Glucose) 15 gm PO PRN PRN PRN Reason: Hypoglycemia Heparin Sodium (Porcine) (Heparin) 5,000 unit SQ Q12 [facility] Last Admin: 09/25/19 20:21 Dose: 5,000 unit Documented by: Hydrocortisone Sodium Succinate (Solu-Cortef) 50 mg IV Q8 [facility] Last Admin: 09/26/19 05:25 Dose: 50 mg Documented by: Hydromorphone HCl (Dilaudid) 1 mg IV Q2HP PRN; Protocol PRN Reason: Per Pain Protocol Fentanyl 2,500 mcg/ Sodium (Chloride) 250 mls @ 2.5 mls/hr IV Q24H [facility]; Protocol Last Titration: 09/25/19 20:41 Dose: 62.5 mcg/hr, 6.25 mls/hr Documented by: Heparin Sodium/Sodium Chloride (Heparin/Ns) 500 mls @ 0 mls/hr IV .Q0M [facility]; Protocol Norepinephrine Bitartrate 16 (mg/ Sodium Chloride) 250 mls @ 9.375 mls/hr IV Q24H [facility]; Protocol Last Admin: 09/26/19 03:23 Dose: Not Given Documented by: Sodium Chloride (Sodium Chloride 0.9%) 250 mls @ 20 mls/hr IV .[id number] [facility] Last Admin: 09/26/19 03:10 Dose: 15 mls/hr Documented by: Heparin Sodium/Sodium Chloride (Heparin/Ns) 500 mls @ 0 mls/hr IV .Q0M [facility]; Protocol Piperacillin Sod/Tazobactam (Sod 3.375 gm/ Dextrose) 50 mls @ 100 mls/hr IV Q6H [facility]; Protocol Last Infusion: 09/26/19 06:43 Dose: Infused Documented by: Acetaminophen (Ofirmev) 1,000 mg in 100 mls @ 200 mls/hr IV Q6HP PRN; Protocol PRN Reason: PAIN/FEVER > 101 Last Infusion: 09/25/19 10:40 Dose: Infused Documented by: Midazolam HCl 50 mg/ Sodium (Chloride) 100 mls @ 4.148 mls/hr IV Q6H [facility]; Protocol Last Admin: 09/26/19 06:36 Dose: 0.02 mg/kg/hr, 4 mls/hr Documented by: Albumin Human (Buminate) 25 gm in 100 mls @ 200 mls/hr IV Q6H [facility] Stop: 09/27/19 07:29 Last Admin: 09/26/19 07:52 Dose: 200 mls/hr Documented by: Calcium Gluconate 4.65 meq/Magnesium Sulfate 16.24 meq/Sodium Chloride 20 meq/Potassium Chloride 20 meq/Potassium Phosphate 20 meq/Multivitamins/Minerals 10 ml/Selenium 60 mcg/ Amino Acids 1,045.0455 mls @ 35 mls/hr IV Q24H [facility] Last Admin: 09/25/19 16:16 Dose: 35 mls/hr Documented by: Fat Emulsion Intravenous (Intralipid 20%) 250 mls @ 25 mls/hr IV SuTh@1600 [facility] Sodium Chloride (Sodium Chloride 0.9%) 250 mls @ 20 mls/hr IV .[id number] [facility] Stop: 09/26/19 19:44 Lactated Ringer's (Lactated Ringers) 1,000 mls @ 40 mls/hr IV .Q24H [facility] Insulin Human Lispro (Humalog) 0 unit SQ Q6 [facility]; Protocol Last Admin: 09/26/19 05:32 Dose: 6 units Documented by: Naloxone HCl (Narcan) 0.4 mg IV ONCE PRN PRN Reason: Opiate Reversal Promethazine HCl (Phenergan) 12.5 mg IV Q6HP PRN PRN Reason: Nausea And Vomiting Pyridostigmine Pine (Regonol) 10 mg SC Q6 [facility] Last Admin: 09/26/19 05:25 Dose: 10 mg Documented by: Sodium Chloride (Saline Flush) 10 ml IV UD PRN PRN Reason: FLUSH Last Admin: 09/26/19 07:53 Dose: 10 ml Documented by: Sodium Chloride (Saline Flush) 10 ml IV Q12 [facility] Last Admin: 09/25/19 20:21 Dose: 10 ml Documented by: - ABG Interpretation ABG results: 09/24/19 09/25/19 22:50 10:28 ABG Methemoglobin 0.2 L 0.3 L VBG pH 7.43 H 7.46 H VBG pCO2 37.9 L 38.0 L VBG pO2 126 H 71 H VBG HCO3 24.3 26.7 VBG Total CO2 25.5 27.8 VBG O2 Saturation 95.3 H 91.0 H VBG Base Excess 0 2.7 H Medical - PN: A/P - Time Spent With Patient Total time spent is greater than 50% in coordination of care (as documented) at patient's floor/unit and/or counseling patient: Greater than 35 minutes (Critical care time) (1) Sepsis with acute hypoxic respiratory failure Status: Acute Assessment and plan: * Acute hypoxic respiratory failure secondary to acute lung injury from major aspiration-improving PaO2 FiO2 ratio and large AA gradient. Much improved plateau pressure around 17-18 indicating adequate lung compliance, PEEP 8 FiO2 50%. Await interval imaging/blood gas. Continue gentle diuresis and restrict total fluid input to 100 cc an hour; * Mechanical ventilation -continue per protocol RASS score 0, switch to propofol/fentanyl, ventilation per ARDS net protocol with low TV high PEEP. Remains high risk candidate for vent weaning due to underlying myasthenia/morbid obesity. Sedation holiday starting 3 AM * Acute lung injury-clinically improving. * Septic shock secondary to aspiration pneumonia. Resolved/off pressors * Hypokalemia improving with replacement * Nutrition -continue TPN * THANIA -resolved * Mild uncomplicated UTI/cystitis-on ABX * Morbid obesity BMI over 40 -continue frequent turning/nutrition support/decubitus precautions * Bowel obstruction managed per surgery, continuing NG decompression * DM type II continue prandial insulin * Stress ulcer prophylaxis on PPI * History of panhypopituitarism continue stress dose hydrocortisone/IV thyroxine * History of myasthenia gravis continue pyridostigmine * Prophylaxis heparin * Full code Plan * Improving prognosis. Bristol score 16 * Sedation holiday starting3 AM/evaluate * Anticipate extubation in 24 to 48 hours * Continue serial blood gas/chest imaging * Continue TPN * Switch to propofol for RASS 0 * Continue stress dose steroid Critical care time spent in excess of 45 minutes Current Visit: Yes Medical - PN: Qual - VTE Deep Vein Thrombosis/Pulmonary Embolism Present on Admission: No
[2019-09-26] MEDS: PROPOFOL 1,000 MG in PREMIX 1 BAG IV SCH ×2 (09:05→21:44)
[2019-09-26] MEDS: PROPOFOL 100 ML IV ONE ×2 (09:06→09:24)
[2019-09-26] MEDS: CHLORHEXIDINE GLUCONATE 1 ML ORAL.SOL SWABMOUTH SCH ×2 (09:59→21:27)
[2019-09-26] MEDS: HEPARIN 5,000 UNIT/ML VIAL SQ SCH ×2 (10:00→21:27)
[2019-09-26] MEDS: CALCIUM GLUCONATE 4.65 MEQ/10 ML VIAL IV SCH ×2 (10:00→21:28)
[2019-09-26] MEDS: ACETAMINOPHEN 1,000 MG/100 ML BOTTLE IV PRN (10:23)
--- NOTE | 2019-09-26 10:25 | XRay Report ---
CLINICAL INFORMATION:Respiratory failure TECHNIQUE: AP portable supine chest x-ray COMPARISON: Previous chest x-rays dated 09/25/2019, 09/24/2019, 09/13/2019, 08/23/2019 FINDINGS:No change in position of endotracheal tube, right central venous catheter, left chemotherapy infusion catheter, esophagogastric tube. Previous median sternotomy. There is cardiomegaly. Right hemidiaphragm is elevated. There are diffuse infiltrates consistent with pulmonary edema. Pleural fluid is possible although not well-visualized on this supine radiograph. Present examination is somewhat underpenetrated as compared with the prior study. Despite this technical difference there has been interval worsening. IMPRESSION: Diffuse infiltrates consistent with congestive heart failure. Interval worsening since previous examination. Interpreted and Authenticated by: All Cormier 09/26/19
[2019-09-26] MEDS: 0.9 % SODIUM CHLORIDE 10 ML SYRINGE IV SCH ×2 (10:30→21:29)
--- NOTE | 2019-09-26 13:16 | General Surgery Progress Note ---
Subjective Patient reports: fever Narrative: Note initiated : 09/26/19 at 1:14 pm Service Date, if different from initiated Date: [] Patient: Dayanna Stephens 58 y/o F admitted on 09/22/19 for NAUSEA AND VOMITING. Chief Complaint: [Patient is gradually improving. She has increased blood pressure. In spite of being off pressors. This is because she has had the third space return. She should respond to diuresis at this time. Her blood gas looks good though her chest x-ray shows slightly more infiltrate. This is probably from interstitial edema. She has significant peripheral edema which should resolve with brisk diuresis.] Objective Temp Pulse Resp BP Pulse Ox 99.9 F H 77 14 141/83 100 09/26/19 12:01 09/26/19 12:01 09/26/19 12:07 09/26/19 12:01 09/26/19 12:07 - Additional Data Intake & Output - Last 24 hours: Intake & Output 09/24/19 09/25/19 09/26/19 09/27/19 05:59 05:59 05:59 05:59 Intake Total 4949 6346 4216 964 Output Total 2800 1780 2688 335 Balance 2149 4566 1528 629 Weight 227 lb 11.2 oz 332 lb 4 oz - General physical appearance chronically ill - Eyes PERRL, normal ocular movement - ENT normal pinna, normal nares, normal mucosa, no hearing loss, no congestion - Neck no masses, no bruits, trachea midline, no lymphadenopathy, no venous distension - Respiratory other - Cardiovascular Cardiovascular exam: Present: normal rate and rhythm, RRR, +S1, +S2. Absent: JVD, tachycardia - Abdomen non tender, bowel sounds (present), surgical scars (none), masses (none), distended (stoma is working normally. Symmetrical good active bowel) - Integumentary no rash, no growths, no abnormal pigmentation - Labs 09/26/19 04:00 09/26/19 04:00 Diabetes panel 09/26/19 Range/Units 04:00 Sodium 140 (133-145) mmol/L Potassium 3.2 L (3.3-5.1) mmol/L Chloride 102 (96-108) mmol/L Carbon Dioxide 24 (22-30) mmol/L BUN 14 (6-20) mg/dl Creatinine 0.6 (0.6-1.1) mg/dl Glucose 197 H (70-105) mg/dL Calcium 7.7 L (8.6-10.4) mg/dl AST 7 (0-37) U/l ALT 16 (0-40) U/l Alkaline Phosphatase 102 (39-117) U/L Total Protein 5.1 L (5.9-8.4) gm/dL Albumin 3.0 L (3.2-5.2) gm/dL Triglycerides 132 (<150) mg/dl Calcium panel 09/26/19 Range/Units 04:00 Calcium 7.7 L (8.6-10.4) mg/dl Phosphorus 2.6 L (2.7-4.5) mg/dL Albumin 3.0 L (3.2-5.2) gm/dL Pituitary panel 09/26/19 Range/Units 04:00 Sodium 140 (133-145) mmol/L Potassium 3.2 L (3.3-5.1) mmol/L Chloride 102 (96-108) mmol/L Carbon Dioxide 24 (22-30) mmol/L BUN 14 (6-20) mg/dl Creatinine 0.6 (0.6-1.1) mg/dl Glucose 197 H (70-105) mg/dL Calcium 7.7 L (8.6-10.4) mg/dl Adrenal panel 09/26/19 Range/Units 04:00 Sodium 140 (133-145) mmol/L Potassium 3.2 L (3.3-5.1) mmol/L Chloride 102 (96-108) mmol/L Carbon Dioxide 24 (22-30) mmol/L BUN 14 (6-20) mg/dl Creatinine 0.6 (0.6-1.1) mg/dl Glucose 197 H (70-105) mg/dL Calcium 7.7 L (8.6-10.4) mg/dl Total Bilirubin 0.2 (0.0-1.0) mg/dL AST 7 (0-37) U/l ALT 16 (0-40) U/l Alkaline Phosphatase 102 (39-117) U/L Total Protein 5.1 L (5.9-8.4) gm/dL Albumin 3.0 L (3.2-5.2) gm/dL Assessment and Plan (1) Acute respiratory insufficiency Status: Acute Assessment and plan: We will continue ventilatory support Current Visit: Yes (2) Chronic intestinal pseudo-obstruction Status: Acute Current Visit: Yes (3) Chronic use of steroids Problem details: for myasthenia gravis; 10+ years Status: Chronic Assessment and plan: Solu-Medrol 62 mg IV every 12 hours Current Visit: No (4) Hypertension Status: Chronic Current Visit: No (5) Myasthenia gravis Status: Chronic Current Visit: No (6) LA (obstructive sleep apnea) Status: Chronic Current Visit: No (7) Obesity, Class II, BMI 35-39.9 Status: Chronic Current Visit: No - Time Spent With Patient Total time spent is greater than 50% in coordination of care (as documented) at patient's floor/unit and/or counseling patient:
[2019-09-26] MEDS: fentaNYL 2,500 MCG in 0.9 % SODIUM CHLORIDE 200 ML IV SCH (15:32)
[2019-09-26] MEDS: POTASSIUM CHLORIDE 40 MEQ in DEXTROSE 5% IN WATER 500 ML IV SCH (15:47)
[2019-09-26] MEDS ORDERED: CALCIUM GLUCONATE 5 MEQ, MAGNESIUM SULFATE 16.24 MEQ, SODIUM CHLORIDE 20 MEQ, POTASSIUM... IV SCH (16:00)
[2019-09-26] MEDS: FUROSEMIDE 40 MG/4 ML VIAL IV SCH ×2 (17:55→21:28)
[2019-09-26] MEDS ORDERED: PROPOFOL 100 ML IV ONE (21:41)
[2019-09-27] MEDS: ACETAMINOPHEN 1,000 MG/100 ML BOTTLE IV PRN ×2 (00:20→14:53)
[2019-09-27] MEDS: ALBUMIN HUMAN 25 GM/100 ML BAG IV SCH ×2 (00:38→06:34)
[2019-09-27] MEDS: POTASSIUM CHLORIDE 40 MEQ in DEXTROSE 5% IN WATER 500 ML IV SCH ×2 (01:57→14:30)
[2019-09-27] MEDS: NOREPINEPHRINE BITARTRATE 16 MG in 0.9 % SODIUM CHLORIDE 234 ML IV SCH (04:07)
[2019-09-27] MEDS: fentaNYL 2,500 MCG in 0.9 % SODIUM CHLORIDE 200 ML IV SCH ×2 (04:07→20:40)
[2019-09-27] MEDS: PIPERACILLIN SODIUM/TAZOBACTAM 3.375 GM in DEXTROSE 5% IN WATER 50 ML IV SCH ×3 (05:35→18:00)
[2019-09-27] MEDS: HYDROCORTISONE SOD SUCC 100 MG VIAL IV SCH ×3 (05:36→21:20)
[2019-09-27] MEDS: INSULIN LISPRO 1 UNIT/0.01 ML UNIT SQ SCH ×3 (05:36→18:17)
[2019-09-27] MEDS: PYRIDOSTIGMINE BROMIDE 10 MG/2 ML ML SC SCH ×3 (05:36→18:22)
[2019-09-27 06:13] LABS: Basophils # (Auto) 0 K/mcL (0.0-0.3); Basophils % (Auto) 0.1 % (0.0-2.0); Eosinophils # (Auto) 0 K/mcL (0.0-0.7); Eosinophils % (Auto) 0 % (0.0-7.0); Granulocytes % (Auto) 85.2 % (38.0-78.0); Hematocrit 28.8 % (36.0-48.0); Hemoglobin 9.3 g/dL (12.0-15.0); Lymphocytes # (Auto) 0.7 K/mcL (1.5-4.8); Mean Cell Volume 86.1 fL (80.0-100.0); Mean Corpuscular HGB Conc 32.2 g/dL (31.0-36.0); Mean Platelet Volume 7.3 fL (7.4-10.4); Monocytes # (Auto) 0.6 K/mcL (0.1-0.9); Monocytes % (Auto) 6.7 % (1.0-12.0); Platelet Count 185 K/mcL (140-440); RBC 3.35 M/mcL (4.00-5.20); Red Cell Distribution Width 18.4 % (11.5-14.5); WBC 8.3 K/mcL (4.5-11.0)
[2019-09-27 06:54] LABS: ALT/SGPT 14 U/l (0-40); AST/SGOT 10 U/l (0-37); Albumin 4.1 gm/dL (3.2-5.2); Alkaline Phosphatase 158 U/L (39-117); Bilirubin,Direct < 0.2 mg/dL (0.0-0.3); Bilirubin,Total 0.5 mg/dL (0.0-1.0); Blood Urea Nitrogen 11 mg/dl (6-20); Calcium 9.1 mg/dl (8.6-10.4); Carbon Dioxide 30 mmol/L (22-30); Chloride 98 mmol/L (96-108); Globulin 2.1 gm/dL (2.2-3.7); Glomerular Filtration Rate 96; Glucose 295 mg/dL (70-105); Lactate Dehydrogenase 210 U/L (94-250); Phosphorous 3.1 mg/dL (2.7-4.5); Triglycerides 168 mg/dl (<150); Uric Acid 1.1 mg/dL (2.5-8.0)
--- NOTE | 2019-09-27 07:49 | XRay Report ---
CLINICAL INFORMATION:Respiratory failure TECHNIQUE: AP portable semiupright chest x-ray COMPARISON: None FINDINGS:No change in endotracheal tube, right central venous catheter, left chemotherapy infusion catheter, esophagogastric tube. Persistent elevation right hemidiaphragm. There is right basilar parenchymal infiltrate which may be slightly worse than on previous examination. No focal left lung infiltrate. IMPRESSION: Right basilar parenchymal infiltrate Interpreted and Authenticated by: All Cormier 09/27/19
--- NOTE | 2019-09-27 07:50 | XRay Report ---
CLINICAL INFORMATION: Follow-up ileus TECHNIQUE: AP supine and semierect upright abdomen COMPARISON: Previous plain film examination dated 09/24/2019. Previous small bowel study dated 09/23/2019 FINDINGS: There is small bowel gas in the mid abdomen. Dilatation has decreased significantly since previous examinations. No pneumoperitoneum identified on semiupright examination. No biliary or portal venous gas. No acute focal abnormality IMPRESSION: Improved bowel gas pattern. Interpreted and Authenticated by: All Cormier 09/27/19
[2019-09-27] MEDS: 0.9 % SODIUM CHLORIDE 10 ML SYRINGE IV SCH ×2 (09:00→21:21)
[2019-09-27] MEDS: CALCIUM GLUCONATE 4.65 MEQ/10 ML VIAL IV SCH ×2 (09:10→21:20)
[2019-09-27] MEDS: 0.9 % SODIUM CHLORIDE 10 ML SYRINGE IV PRN ×4 (09:10→21:21)
[2019-09-27] MEDS: CHLORHEXIDINE GLUCONATE 1 ML ORAL.SOL SWABMOUTH SCH ×2 (09:32→21:21)
[2019-09-27] MEDS: FUROSEMIDE 40 MG/4 ML VIAL IV SCH ×2 (09:34→21:20)
[2019-09-27] MEDS: HEPARIN 5,000 UNIT/ML VIAL SQ SCH ×2 (09:35→21:20)
[2019-09-27] MEDS ORDERED: PROPOFOL 100 ML IV ONE (10:58)
[2019-09-27] MEDS ORDERED: [UNRECOGNIZED DRUG - OTHER] IV SCH (11:00)
[2019-09-27] MEDS ORDERED: SODIUM CHLORIDE IV SCH (11:00)
[2019-09-27] MEDS ORDERED: MAGNESIUM SULFATE IV SCH (11:00)
[2019-09-27] MEDS ORDERED: CALCIUM GLUCONATE IV SCH (11:00)
--- NOTE | 2019-09-27 11:17 | Internal Med Progress Note ---
Medical - PN: Subj Patient information: Note initiated : 09/27/19 at 11:15 am Service Date, if different from initiated Date: [] Patient: Dayanna Stephens a 58 y/o F admitted on 09/22/19 for NAUSEA AND VOMITING. Chief Complaint: [] Interval history: Ms. Stephens is a 58 year old morbidly obese F with a complex medical history of parathyroidism , chronic hypocalcemia, polyglandular syndrome, sarcoidosis, myasthenia gravis and multiple bowel obstruction/abdominal surgeries with colostomy who underwent recent hospitalization at [facility] following a bowel obstruction and underwent surgery x2 between August 16 in September 21. Patient was discharged to care center however due to worsening abdominal pain and nausea vomiting she was admitted on 09/23 under surgical service for management of bowel obstruction. She underwent NG decompression. Early this morning patient was found to be increasingly dyspneic with sats in mid 60s following episode of nausea and large emesis. Patient was evaluated by surgery and underwent intubation due to profound hypoxia and was initiated on mechanical ventilation. Systolics was around 80 and was started on Levophed after crystalloid boluses. Subsequently hospitalist service was consulted for management of mechanical ventilation and shock/hypoxic respiratory failure At the time evaluation patient is on mechanical ventilation. Family members are present. Most of the history is obtained from review of medical records and Dr. Currie surgeon Patient has an ostomy which was noted to be draining copious amount of liquid output She is febrile at 101.1. Is currently on vasopressors at 10 mics. She received 3 L of crystalloids. Martinez is draining dark urine. Right subclavian central line was secured by anesthesia. Initial blood gas 7.35/40 2/64 on 70% FiO2 PEEP 5, plateau pressure 23 peak pressure 12, tidal volume 450 rate 14. 12/13-patient remains critically ill on mechanical ventilation. Copious NG output. Patient responding to commands. Started on stress dose hydrocortisone in the setting of myasthenia and previously being on prednisone. Off pressors. Map at goal. ABG reviewed 7.42/34/56. Interval chest imaging slightly impro larry however on PEEP 8/FiO2 50% with large AA gradient and PaO2 FiO2 ratio around 100. Patient will be a difficult candidate for ventilator weaning in the setting of myasthenia and morbid obesity with ALI/early ARDS picture. White count 17.5, central venous oxygen sat 95, urine output 30 cc an hour. Net 6500 cc positive fluid balance in the last 24 hours. Continue Zosyn. One[place] II score 21 09/26-hemoglobin down to 6.7. 2 units PRBC transfusion. No obvious source of bleed. White count down from 17.5-9.3. Potassium down to 3 on replacement. Off vasopressors. PEEP 8 FiO2 50%. Diuresing well. Lower total fluid infusion to 100 cc an hour cumulative including TPN. Initiate gentle diuresis to optimize lung compliance in anticipation of extubation. Improving AA gradient/PaO2 FiO2 ratio. Await interval chest imaging/blood gas. Anticipate extubation in the next 24 to 48 hours. Will require careful evaluation of RSBI/NIF/plateau pressures/pulmonary compliance in the setting of myasthenia for successful extubation. NG output 250 cc overnight bilious 09/27-her vital signs are maintained her ABG showing improvement in oxygenation and we decrease her PEEP to 6 and once her oxygenation maintained we will try to titrate down the FiO2 and will plan for sedation vacation. Dr. Currie ordered diuresis and agreed with the plan. Hemoglobin is 9.3 no evidence of any acute bleed. She has underlying history of myasthenia gravis which makes extubation difficult. She was opening her eyes even while on sedation which is a good sign. Improving the AA gradient and acute lung injury. She continues to have significant output on suctioning with a ananda material. Pertinent ROS: Review of systems-unable to obtain due to pharmacologic sedation and mental status - Constitutional Vitals: Vital Signs Temp Pulse Resp BP Pulse Ox 100.2 F H 73 14 143/89 98 09/27/19 11:01 09/27/19 11:01 09/27/19 09:50 09/27/19 11:01 09/27/19 11:01 Period Temp Pulse Resp BP Sys/Archuleta Pulse Ox Last 24 Hr 99.0 F-102.3 F 62-105 14-27 107-169/73-111 94-100 Intake and Output 09/26/19 09/27/19 09/27/19 21:59 05:59 13:59 Intake Total 2567 500 910 Output Total 4540 3325 1830 Balance -1972 Weight 236 lb 3.2 oz Intake & Output: Intake & Output 09/26/19 09/27/19 09/27/19 21:59 05:59 13:59 Intake Total 2567 500 910 Output Total 9271 8408 1830 Balance -[id number] 0 Weight 236 lb 3.2 oz Intake: IV 2227 500 910 Sodium Chloride 0.9% 250 ml @ 239 250 242 20 mls/hr IV .[id number] [facility] Rx#: [id number] Calcium Gluconate 4.65 Meq 818 Magnesium Sulfate 16.24 Meq Sodium Chloride 20 Meq Potassium Chloride 20 Meq Potassium Phosphate 20 Meq Infuvite Adult 10 ml Selenium 60 Mcg In Clinimix 5%-20% Solution 1,000 ml @ 35 mls/hr IV Q24H [facility] Rx#:[id number] Lactated Ringers 1,000 ml @ 115 329 mls/hr IV .[id number] [facility] Rx#: [id number] Zosyn 3.375 gm In Dextrose 5% 50 50 50 in Water 50 ml @ 100 mls/hr IV Q6H [facility] Rx#:[id number] Potassium Chloride 40 Meq In 520 520 Dextrose 5% in Water 500 ml @ 130 mls/hr IV Q12H [facility] Rx#: [id number] Diprivan 1,000 mg In Premix 1 51 Bag @ 5 MCG/KG/MIN 4.521 mls/hr IV .Q22H8M [facility] Rx#:[id number] fentaNYL 2,500 MCG In Sodium 20 Chloride 0.9% 200 ml @ 25 MCG/ HR 2.5 mls/hr IV Q24H [facility] Rx#: [id number] Tube Feeding 0 Blood Product 340 Output: Gastric Drainage 425 500 NG/OG 425 500 Urine Catheter Amount 3215 2815 1830 Void Amount 875 Stool 25 10 Other: Urine Appearance Sediment Clear Clear Uretheral (Martinez) Sediment Clear Urine Color Pale Bright Yellow Pale Uretheral (Martinez) Pale Bright Yellow Urine Odor Normal Stool Size Small Stool Color Brown Stool Consistency Loose - Head Head exam: Present: normal inspection - Eye Pupils: Present: miosis. Absent: mydriatic - ENT ENT exam: Present: mucous membranes moist, normal external ear exam, normal oropharynx - Neck Neck exam: Present: full ROM, normal inspection. Absent: lymphadenopathy - Respiratory Respiratory exam: Present: decreased breath sounds, rales, rhonchi. Absent: stridor, wheezes - Cardiovascular Cardiovascular exam: Present: normal rate and rhythm. Absent: bradycardia, diastolic murmur, RRR, rubs - GI/Abdominal GI/Abdominal exam: Present: normal bowel sounds, soft, distended. Absent: guarding - Neurological Exam Neurological exam: Present: alert, reflexes normal. Absent: motor sensory deficit, oriented X3 Medical - PN: Obj Da - Labs CBC & Chem 7: 09/27/19 04:00 09/27/19 04:00 Labs: Abnormal Lab Results 09/27/19 09/27/19 09/26/19 04:00 04:00 07:25 WBC RBC 3.35 L Hgb 9.3 L Hct 28.8 L POC Hct 20.0 L* RDW 18.4 H MPV 7.3 L Gran % 85.2 H Lymph % (Auto) 8.0 L Gran # Lymph # (Auto) 0.7 L ABG Methemoglobin VBG pH VBG pCO2 VBG pO2 VBG O2 Saturation VBG Base Excess Carboxyhemoglobin Total Hemoglobin POC Potassium 3.0 L Potassium Glucose 295 H POC Glucose 164 H Uric Acid 1.1 L Calcium POC WB Ioniz Calcium 0.90 L Phosphorus Alkaline Phosphatase 158 H Lactate Dehydrogenase NT-Pro-B Natriuret Pep Total Protein Albumin Globulin 2.1 L Albumin/Globulin Ratio Triglycerides 168 H 09/26/19 09/26/19 09/25/19 04:00 04:00 10:28 WBC RBC 2.47 L Hgb 6.7 L* Hct 21.1 L POC Hct RDW 20.8 H MPV 7.2 L Gran % 86.3 H Lymph % (Auto) 6.1 L Gran # Lymph # (Auto) 0.6 L ABG Methemoglobin 0.3 L VBG pH 7.46 H VBG pCO2 38.0 L VBG pO2 71 H VBG O2 Saturation 91.0 H VBG Base Excess 2.7 H Carboxyhemoglobin 4.2 H Total Hemoglobin 7.4 L POC Potassium Potassium 3.2 L Glucose 197 H POC Glucose Uric Acid 1.6 L Calcium 7.7 L POC WB Ioniz Calcium Phosphorus 2.6 L Alkaline Phosphatase Lactate Dehydrogenase NT-Pro-B Natriuret Pep Total Protein 5.1 L Albumin 3.0 L Globulin 2.1 L Albumin/Globulin Ratio Triglycerides 09/25/19 09/25/19 09/24/19 04:00 04:00 22:50 WBC 17.5 H RBC 3.25 L Hgb 8.8 L Hct 27.9 L POC Hct RDW 21.0 H MPV 7.2 L Gran % 91.8 H Lymph % (Auto) 4.2 L Gran # 16.1 H Lymph # (Auto) 0.7 L ABG Methemoglobin 0.2 L VBG pH 7.43 H VBG pCO2 37.9 L VBG pO2 126 H VBG O2 Saturation 95.3 H VBG Base Excess Carboxyhemoglobin 3.4 H Total Hemoglobin 9.2 L POC Potassium Potassium Glucose 202 H POC Glucose Uric Acid Calcium 6.7 L POC WB Ioniz Calcium Phosphorus Alkaline Phosphatase Lactate Dehydrogenase 254 H NT-Pro-B Natriuret Pep 371.2 H Total Protein 5.0 L Albumin 2.4 L Globulin Albumin/Globulin Ratio 0.9 L Triglycerides Meds: Medications Acetaminophen (Tylenol) 650 mg PO Q6HP PRN PRN Reason: PAIN/FEVER > 101 Calcium Gluconate (Calcium Gluconate) 9.3 meq IV BID [facility] Stop: 09/30/19 09:00 Last Admin: 09/27/19 09:10 Dose: 9.3 meq Documented by: Chlorhexidine Gluconate (Peridex) 15 ml SWABMOUTH BID [facility] Last Admin: 09/27/19 09:32 Dose: 15 ml Documented by: Dextrose (Dextrose 50%) 0 ml IV UD PRN PRN Reason: Hypoglycemia Diagnostic Test (Pha) (Accu-Chek) 1 each FS Q6 [facility] Last Admin: 09/27/19 05:36 Dose: 1 each Documented by: Furosemide (Lasix) 40 mg IV Q12 [facility] Last Admin: 09/27/19 09:34 Dose: 40 mg Documented by: Glucose (Insta-Glucose) 15 gm PO PRN PRN PRN Reason: Hypoglycemia Heparin Sodium (Porcine) (Heparin) 5,000 unit SQ Q12 [facility] Last Admin: 09/27/19 09:35 Dose: 5,000 unit Documented by: Hydrocortisone Sodium Succinate (Solu-Cortef) 50 mg IV Q8 [facility] Last Admin: 09/27/19 05:36 Dose: 50 mg Documented by: Hydromorphone HCl (Dilaudid) 1 mg IV Q2HP PRN; Protocol PRN Reason: Per Pain Protocol Fentanyl 2,500 mcg/ Sodium (Chloride) 250 mls @ 2.5 mls/hr IV Q24H [facility]; Protocol Last Admin: 09/27/19 04:07 Dose: Not Given Documented by: Heparin Sodium/Sodium Chloride (Heparin/Ns) 500 mls @ 0 mls/hr IV .Q0M [facility]; Protocol Norepinephrine Bitartrate 16 (mg/ Sodium Chloride) 250 mls @ 9.375 mls/hr IV Q24H [facility]; Protocol Last Admin: 09/27/19 04:07 Dose: Not Given Documented by: Sodium Chloride (Sodium Chloride 0.9%) 250 mls @ 20 mls/hr IV .[id number] [facility] Last Infusion: 09/27/19 11:13 Dose: Infused Documented by: Heparin Sodium/Sodium Chloride (Heparin/Ns) 500 mls @ 0 mls/hr IV .Q0M [facility]; Protocol Piperacillin Sod/Tazobactam (Sod 3.375 gm/ Dextrose) 50 mls @ 100 mls/hr IV Q6H [facility]; Protocol Last Infusion: 09/27/19 06:35 Dose: Infused Documented by: Acetaminophen (Ofirmev) 1,000 mg in 100 mls @ 200 mls/hr IV Q6HP PRN; Protocol PRN Reason: PAIN/FEVER > 101 Last Infusion: 09/27/19 01:00 Dose: Infused Documented by: Fat Emulsion Intravenous (Intralipid 20%) 250 mls @ 25 mls/hr IV SuTh@1600 [facility] Propofol 1,000 mg/ Premix 100 mls @ 4.521 mls/hr IV .Q22H8M [facility]; Protocol Last Admin: 09/26/19 21:44 Dose: 5 mcg/kg/min, 4.521 mls/hr Documented by: Potassium Chloride 40 meq/ (Dextrose) 520 mls @ 130 mls/hr IV Q12H [facility] Stop: 09/29/19 05:59 Last Infusion: 09/27/19 06:35 Dose: Infused Documented by: Calcium Gluconate 10 meq/Magnesium Sulfate 48.72 meq/Sodium Chloride 20 meq/Potassium Chloride 80 meq/Potassium Phosphate 40 meq/Multivitamins/Minerals 10 ml/Selenium 60 mcg/ Amino Acids 2,099.0962 mls @ 75 mls/hr IV Q24H [facility] Insulin Human Lispro (Humalog) 0 unit SQ Q6 [facility]; Protocol Last Admin: 09/27/19 05:36 Dose: 8 units Documented by: Naloxone HCl (Narcan) 0.4 mg IV ONCE PRN PRN Reason: Opiate Reversal Promethazine HCl (Phenergan) 12.5 mg IV Q6HP PRN PRN Reason: Nausea And Vomiting Pyridostigmine [place] (Regonol) 10 mg SC Q6 [facility] Last Admin: 09/27/19 05:36 Dose: 10 mg Documented by: Sodium Chloride (Saline Flush) 10 ml IV UD PRN PRN Reason: FLUSH Last Admin: 09/27/19 09:10 Dose: 10 ml Documented by: Sodium Chloride (Saline Flush) 10 ml IV Q12 [facility] Last Admin: 09/26/19 21:29 Dose: 10 ml Documented by: - ABG Interpretation ABG results: 09/24/19 09/25/19 22:50 10:28 ABG Methemoglobin 0.2 L 0.3 L VBG pH 7.43 H 7.46 H VBG pCO2 37.9 L 38.0 L VBG pO2 126 H 71 H VBG HCO3 24.3 26.7 VBG Total CO2 25.5 27.8 VBG O2 Saturation 95.3 H 91.0 H VBG Base Excess 0 2.7 H Medical - PN: A/P - Time Spent With Patient Total time spent is greater than 50% in coordination of care (as documented) at patient's floor/unit and/or counseling patient: Greater than 35 minutes - Narrative A/P Narrative: Acute hypoxic respiratory failure Acute lung injury from aspiration and aspiration pneumonitis Probably aspiration pneumonia Patient admitted with a bowel obstruction and had a large amount of emesis and probable aspiration Recurring mechanical ventilation Improving PaO2 FiO2 ratio and AA gradient Plateau pressure improved Decrease the PEEP to 8 and FiO2 keep at 100 We will try to wean the FiO2 Follow-up ABGs Continue gentle diuresis We will discontinue IV fluid hydration Sedation protocol with a raw score of 0 and use propofol and fentanyl for analgesia Ventilation per ARDS net protocol with a low tidal volume and high PEEPShe remains high risk candidate for ventilator weaning due to myasthenia gravis morbid obesity Sedation holiday will try today after weaning the FiO2 Acute lung injury-as mentioned above Septic shock secondary to aspiration pneumonia She is off of pressors Continue Zosyn Hypokalemia hypomagnesemia Replacement ordered Acute renal failure due to septic shock-improving Morbid obesity BMI over 40 Continue nutrition support and decubitus ulcer precautions Type 2 diabetes Continue sliding scale insulin History of panhypopituitarism Continue stress dose of hydrocortisone and IV thyroxine History of myasthenia gravis Continue pyridostigmine DVT prophylaxis-subcu heparin CODE STATUS-full code Nutrition-continue TPN Total critical care time spent 65 minutes Medical - PN: Qual - VTE Deep Vein Thrombosis/Pulmonary Embolism Present on Admission: No
[2019-09-27] MEDS: 0.9 % SODIUM CHLORIDE 250 ML IV SCH ×2 (11:18→21:22)
[2019-09-27] MEDS: PROPOFOL 1,000 MG in PREMIX 1 BAG IV SCH ×2 (12:11→12:13)
--- NOTE | 2019-09-27 13:58 | General Surgery Progress Note ---
Subjective Patient reports: bowel movement, fever Narrative: Note initiated : 09/27/19 at 1:55 pm Service Date, if different from initiated Date: [] Patient: Dayanna Stephens 58 y/o F admitted on 09/22/19 for NAUSEA AND VOMITING. Chief Complaint: [patient is gradually improving. She is more alert and has improved respiratory effort. blood gases are improved and ventilatory support is being weaned. She has had good third space return and has had a very vigorous diuresis overnight. Peripheral edema is significantly improved. Serum albumin is up to 4.1. White blood count 8.3, hemoglobin 9.3, hematocrit 28.8, potassium 3.4, BUN 11, creatinine 0.7, calcium 9.1, magnesium 1.6. Chest x-ray shows persistent interstitial edema. An abdominal series shows dilated small bowel loops in midabdomen, but no evidence of major distention.] Objective Temp Pulse Resp BP Pulse Ox 100.4 F H 64 14 143/73 95 09/27/19 13:01 09/27/19 13:01 09/27/19 11:42 09/27/19 13:01 09/27/19 13:01 - Additional Data Intake & Output - Last 24 hours: Intake & Output 09/25/19 09/26/19 09/27/19 09/28/19 05:59 05:59 05:59 05:59 Intake Total 6346 4216 4416 2118.0708 Output Total 1780 2688 8320 3230 Balance 4566 1528 -3904 -1111.9292 Weight 332 lb 4 oz 236 lb 3.2 oz 236 lb 3.2 oz - General physical appearance well developed, well nourished, no distress, chronically ill - Eyes PERRL, normal ocular movement - ENT normal pinna, normal nares, normal mucosa, no hearing loss, no congestion - Neck no masses, no bruits, trachea midline, no lymphadenopathy, no venous distension - Respiratory normal expansion, normal respiratory effort, clear to auscultation, other (excellent bilateral breath sounds ventilator) - Cardiovascular Cardiovascular exam: Present: normal rate and rhythm, JVD, RRR, +S1, +S2 - Abdomen non tender, bowel sounds (present), surgical scars (none), masses (none), distended (. No abdominal distention; good active bowel sounds; stoma looks good) - Integumentary no rash, no growths, no abnormal pigmentation - Labs 09/27/19 04:00 09/27/19 04:00 Diabetes panel 09/27/19 Range/Units 04:00 Sodium 142 (133-145) mmol/L Potassium 3.4 (3.3-5.1) mmol/L Chloride 98 (96-108) mmol/L Carbon Dioxide 30 (22-30) mmol/L BUN 11 (6-20) mg/dl Creatinine 0.7 (0.6-1.1) mg/dl Glucose 295 H (70-105) mg/dL Calcium 9.1 (8.6-10.4) mg/dl AST 10 (0-37) U/l ALT 14 (0-40) U/l Alkaline Phosphatase 158 H (39-117) U/L Total Protein 6.2 (5.9-8.4) gm/dL Albumin 4.1 (3.2-5.2) gm/dL Triglycerides 168 H (<150) mg/dl Calcium panel 09/27/19 Range/Units 04:00 Calcium 9.1 (8.6-10.4) mg/dl Phosphorus 3.1 (2.7-4.5) mg/dL Albumin 4.1 (3.2-5.2) gm/dL Pituitary panel 09/27/19 Range/Units 04:00 Sodium 142 (133-145) mmol/L Potassium 3.4 (3.3-5.1) mmol/L Chloride 98 (96-108) mmol/L Carbon Dioxide 30 (22-30) mmol/L BUN 11 (6-20) mg/dl Creatinine 0.7 (0.6-1.1) mg/dl Glucose 295 H (70-105) mg/dL Calcium 9.1 (8.6-10.4) mg/dl Adrenal panel 09/27/19 Range/Units 04:00 Sodium 142 (133-145) mmol/L Potassium 3.4 (3.3-5.1) mmol/L Chloride 98 (96-108) mmol/L Carbon Dioxide 30 (22-30) mmol/L BUN 11 (6-20) mg/dl Creatinine 0.7 (0.6-1.1) mg/dl Glucose 295 H (70-105) mg/dL Calcium 9.1 (8.6-10.4) mg/dl Total Bilirubin 0.5 (0.0-1.0) mg/dL AST 10 (0-37) U/l ALT 14 (0-40) U/l Alkaline Phosphatase 158 H (39-117) U/L Total Protein 6.2 (5.9-8.4) gm/dL Albumin 4.1 (3.2-5.2) gm/dL Assessment and Plan (1) Acute respiratory insufficiency Status: Acute Assessment and plan: We will continue ventilatory support Patient is probably stable for weaning and extubation but will Defer to the discretion of the hospitalist plan follow-up chest x-ray in the morning Current Visit: Yes (2) Chronic intestinal pseudo-obstruction Status: Acute Current Visit: Yes (3) Chronic use of steroids Problem details: for myasthenia gravis; 10+ years Status: Chronic Assessment and plan: Solu-Medrol 62 mg IV every 12 hours Current Visit: No (4) Hypertension Status: Chronic Current Visit: No (5) Myasthenia gravis Status: Chronic Current Visit: No (6) LA (obstructive sleep apnea) Status: Chronic Current Visit: No (7) Obesity, Class II, BMI 35-39.9 Status: Chronic Current Visit: No - Time Spent With Patient Total time spent is greater than 50% in coordination of care (as documented) at patient's floor/unit and/or counseling patient:
[2019-09-27] MEDS ORDERED: MAGNESIUM SULFATE 32.48 MEQ in DEXTROSE 5% IN WATER 50 ML IV ONE (14:00)
[2019-09-27] MEDS: MAGNESIUM SULFATE 4 GM/100 ML BAG IV SCH ×2 (14:50→17:15)
[2019-09-27] MEDS ORDERED: FAT EMULSION 20% 250 ML IV SCH (16:00)
[2019-09-28] MEDS: HYDROmorphone 2 MG/ML VIAL IV PRN (00:56)
[2019-09-28] MEDS: PIPERACILLIN SODIUM/TAZOBACTAM 3.375 GM in DEXTROSE 5% IN WATER 50 ML IV SCH ×4 (00:57→17:52)
[2019-09-28] MEDS: PYRIDOSTIGMINE BROMIDE 10 MG/2 ML ML SC SCH ×4 (00:57→17:52)
[2019-09-28] MEDS: INSULIN LISPRO 1 UNIT/0.01 ML UNIT SQ SCH ×4 (00:58→17:51)
[2019-09-28] MEDS: ACETAMINOPHEN 1,000 MG/100 ML BOTTLE IV PRN ×3 (01:12→22:30)
[2019-09-28] MEDS: POTASSIUM CHLORIDE 40 MEQ in DEXTROSE 5% IN WATER 500 ML IV SCH ×2 (03:48→14:04)
[2019-09-28] MEDS: NOREPINEPHRINE BITARTRATE 16 MG in 0.9 % SODIUM CHLORIDE 234 ML IV SCH (04:42)
[2019-09-28] MEDS: PROPOFOL 1,000 MG in PREMIX 1 BAG IV SCH (04:42)
[2019-09-28 05:42] LABS: ALT/SGPT 14 U/l (0-40); AST/SGOT 11 U/l (0-37); Albumin/Globulin Ratio 1.4 (1.0-2.3); Alkaline Phosphatase 112 U/L (39-117); Bilirubin,Direct < 0.2 mg/dL (0.0-0.3); Bilirubin,Total 0.4 mg/dL (0.0-1.0); Blood Urea Nitrogen 16 mg/dl (6-20); Calcium 9.4 mg/dl (8.6-10.4); Carbon Dioxide 35 mmol/L (22-30); Globulin 2.8 gm/dL (2.2-3.7); Glomerular Filtration Rate 101; Glucose 281 mg/dL (70-105); Lactate Dehydrogenase 181 U/L (94-250); Phosphorous 3.4 mg/dL (2.7-4.5); Triglycerides 200 mg/dl (<150); Uric Acid 1.1 mg/dL (2.5-8.0)
[2019-09-28 05:45] LABS: Chloride 92 mmol/L (96-108)
[2019-09-28] MEDS: HYDROCORTISONE SOD SUCC 100 MG VIAL IV SCH ×3 (05:49→21:43)
[2019-09-28] MEDS: 0.9 % SODIUM CHLORIDE 10 ML SYRINGE IV PRN ×6 (06:30→17:52)
[2019-09-28] MEDS ORDERED: NOREPINEPHRINE BITARTRATE 16 MG in 0.9 % SODIUM CHLORIDE 234 ML IV PRN (06:45)
[2019-09-28] MEDS ORDERED: BENZOCAINE 1 SPRAY BOTTLE TOPICAL ONE (07:04)
[2019-09-28] MEDS: FUROSEMIDE 40 MG/4 ML VIAL IV SCH ×2 (08:53→09:34)
[2019-09-28] MEDS: CHLORHEXIDINE GLUCONATE 1 ML ORAL.SOL SWABMOUTH SCH ×2 (08:53→20:35)
[2019-09-28] MEDS: CALCIUM GLUCONATE 4.65 MEQ/10 ML VIAL IV SCH ×2 (08:53→20:34)
[2019-09-28] MEDS: HEPARIN 5,000 UNIT/ML VIAL SQ SCH ×2 (08:54→20:34)
[2019-09-28] MEDS: 0.9 % SODIUM CHLORIDE 10 ML SYRINGE IV SCH ×2 (09:35→20:34)
--- NOTE | 2019-09-28 09:47 | XRay Report ---
CLINICAL INFORMATION: Mechanically Ventilated COMPARISON: 09/27/2019 FINDINGS: Lines and tubes remain in stable satisfactory position. Cardiomediastinal silhouette and pulmonary vessels are normal. Right diaphragm is chronically elevated. Moderate solidly atelectasis left base in the retrocardiac region with small left pleural effusion unchanged. There is minor atelectasis or infiltrate right base stable. Small right pleural effusion IMPRESSION: Moderate consolidated atelectasis left base with small atelectasis in the left base and small effusion unchanged. Minor atelectasis and small right pleural effusion also stable Chronic elevation right diaphragm also stable Interpreted and Authenticated by: All Lundberg 09/28/19
--- NOTE | 2019-09-28 09:49 | XRay Report ---
CLINICAL INFORMATION: FOLLOW -UP OF SMALL BOWEL OBSTRUCTION COMPARISON: 09/27/2019 FINDINGS: NG tube remains in stable satisfactory position with the tip overlying the gastric pylorus. Extensive prior bowel resection acknowledged. The stomach and residualized bowel in the central abdomen are unremarkable. No evidence of ileus or obstruction. No free air. IMPRESSION: Negative Interpreted and Authenticated by: All Lundberg 09/28/19
[2019-09-28] MEDS ORDERED: POTASSIUM CHLORIDE IV SCH (11:00)
[2019-09-28] MEDS ORDERED: [UNRECOGNIZED DRUG - OTHER] IV SCH (11:00)
[2019-09-28] MEDS ORDERED: MAGNESIUM SULFATE IV SCH (11:00)
[2019-09-28] MEDS ORDERED: CALCIUM GLUCONATE IV SCH (11:00)
[2019-09-28] MEDS: 0.9 % SODIUM CHLORIDE 250 ML IV SCH (12:43)
--- NOTE | 2019-09-28 14:13 | General Surgery Progress Note ---
Subjective Patient reports: feels better, pain is less, flatus, bowel movement, fever Narrative: Note initiated : 09/28/19 at 2:11 pm Service Date, if different from initiated Date: [] Patient: Dayanna Stephens 58 y/o F admitted on 09/22/19 for NAUSEA AND VOMITING. Chief Complaint: [patient is stable, except for low-grade fever in the 100 range. She has had progressive improvement and is now extubated. She is m aintaining oxygen saturations in the 95-97% range and shows no evidence of respiratory compromise. She does not have significant pain. She had a very brisk diuresis yesterday and appears to be maintaining well..] Objective Temp Pulse Resp BP Pulse Ox 100.1 F H 89 19 140/86 96 09/28/19 13:54 09/28/19 13:01 09/28/19 13:58 09/28/19 13:01 09/28/19 13:58 - Additional Data Intake & Output - Last 24 hours: Intake & Output 09/26/19 09/27/19 09/28/19 09/29/19 05:59 05:59 05:59 05:59 Intake Total 4216 4416 3195.0708 620 Output Total 2688 8320 8995 405 Balance 1528 -3904 -5799.9292 215 Weight 332 lb 4 oz 236 lb 3.2 oz 216 lb 11.2 oz - General physical appearance well developed, well nourished, no distress - Eyes PERRL, normal ocular movement - ENT normal pinna, normal nares, normal mucosa, no hearing loss, no congestion - Neck no masses, no bruits, trachea midline, no lymphadenopathy, no venous distension - Respiratory normal expansion, normal respiratory effort, clear to auscultation - Cardiovascular Cardiovascular exam: Present: normal rate and rhythm, RRR, +S1, +S2. Absent: JVD, tachycardia - Abdomen non tender, bowel sounds (present), surgical scars (stoma is functioning normal ly), masses (none) - Integumentary no rash, no growths, no abnormal pigmentation - Psychiatric oriented to time, oriented to person, oriented to place, speech is normal, memory intact - Labs 09/27/19 04:00 09/28/19 04:00 Diabetes panel 09/28/19 Range/Units 04:00 Sodium 143 (133-145) mmol/L Potassium 3.0 L (3.3-5.1) mmol/L Chloride 92 L (96-108) mmol/L Carbon Dioxide 35 H (22-30) mmol/L BUN 16 (6-20) mg/dl Creatinine 0.6 (0.6-1.1) mg/dl Glucose 281 H (70-105) mg/dL Calcium 9.4 (8.6-10.4) mg/dl AST 11 (0-37) U/l ALT 14 (0-40) U/l Alkaline Phosphatase 112 (39-117) U/L Total Protein 6.8 (5.9-8.4) gm/dL Albumin 4.0 (3.2-5.2) gm/dL Triglycerides 200 H (<150) mg/dl Calcium panel 09/28/19 Range/Units 04:00 Calcium 9.4 (8.6-10.4) mg/dl Phosphorus 3.4 (2.7-4.5) mg/dL Albumin 4.0 (3.2-5.2) gm/dL Pituitary panel 09/28/19 Range/Units 04:00 Sodium 143 (133-145) mmol/L Potassium 3.0 L (3.3-5.1) mmol/L Chloride 92 L (96-108) mmol/L Carbon Dioxide 35 H (22-30) mmol/L BUN 16 (6-20) mg/dl Creatinine 0.6 (0.6-1.1) mg/dl Glucose 281 H (70-105) mg/dL Calcium 9.4 (8.6-10.4) mg/dl Adrenal panel 09/28/19 Range/Units 04:00 Sodium 143 (133-145) mmol/L Potassium 3.0 L (3.3-5.1) mmol/L Chloride 92 L (96-108) mmol/L Carbon Dioxide 35 H (22-30) mmol/L BUN 16 (6-20) mg/dl Creatinine 0.6 (0.6-1.1) mg/dl Glucose 281 H (70-105) mg/dL Calcium 9.4 (8.6-10.4) mg/dl Total Bilirubin 0.4 (0.0-1.0) mg/dL AST 11 (0-37) U/l ALT 14 (0-40) U/l Alkaline Phosphatase 112 (39-117) U/L Total Protein 6.8 (5.9-8.4) gm/dL Albumin 4.0 (3.2-5.2) gm/dL Assessment and Plan (1) Acute respiratory insufficiency Status: Resolved Current Visit: Yes (2) Chronic intestinal pseudo-obstruction Status: Acute Current Visit: Yes (3) Chronic use of steroids Problem details: for myasthenia gravis; 10+ years Status: Chronic Assessment and plan: Solu-Medrol 62 mg IV every 12 hours Current Visit: No (4) Hypertension Status: Chronic Current Visit: No (5) Myasthenia gravis Status: Chronic Current Visit: No (6) LA (obstructive sleep apnea) Status: Chronic Current Visit: No (7) Obesity, Class II, BMI 35-39.9 Status: Chronic Current Visit: No - Time Spent With Patient Total time spent is greater than 50% in coordination of care (as documented) at patient's floor/unit and/or counseling patient:
--- NOTE | 2019-09-28 20:35 | Internal Med Progress Note ---
Medical - PN: Subj Patient information: Note initiated : 09/28/19 at 8:33 pm Service Date, if different from initiated Date: [] Patient: Dayanna Stephens a 58 y/o F admitted on 09/22/19 for NAUSEA AND VOMITING. Chief Complaint: [] Interval history: Ms. Stephens is a 58 year old morbidly obese F with a complex medical history of parathyroidism , chronic hypocalcemia, polyglandular syndrome, sarcoidosis, myasthenia gravis and multiple bowel obstruction/abdominal surgeries with colostomy who underwent recent hospitalization at [facility] following a bowel obstruction and underwent surgery x2 between August 16 in September 21. Patient was discharged to care center however due to worsening abdominal pain and nausea vomiting she was admitted on 09/23 under surgical service for management of bowel obstruction. She underwent NG decompression. Early this morning patient was found to be increasingly dyspneic with sats in mid 60s following episode of nausea and large emesis. Patient was evaluated by surgery and underwent intubation due to profound hypoxia and was initiated on mechanical ventilation. Systolics was around 80 and was started on Levophed after crystalloid boluses. Subsequently hospitalist service was consulted for management of mechanical ventilation and shock/hypoxic respiratory failure At the time evaluation patient is on mechanical ventilation. Family members are present. Most of the history is obtained from review of medical records and Dr. Currie surgeon Patient has an ostomy which was noted to be draining copious amount of liquid output She is febrile at 101.1. Is currently on vasopressors at 10 mics. She received 3 L of crystalloids. Martinez is draining dark urine. Right subclavian central line was secured by anesthesia. Initial blood gas 7.35/40 2/64 on 70% FiO2 PEEP 5, plateau pressure 23 peak pressure 12, tidal volume 450 rate 14. 12/13-patient remains critically ill on mechanical ventilation. Copious NG output. Patient responding to commands. Started on stress dose hydrocortisone in the setting of myasthenia and previously being on prednisone. Off pressors. Map at goal. ABG reviewed 7.42/34/56. Interval chest imaging slightly improv ed however on PEEP 8/FiO2 50% with large AA gradient and PaO2 FiO2 ratio around 100. Patient will be a difficult candidate for ventilator weaning in the setting of myasthenia and morbid obesity with ALI/early ARDS picture. White count 17.5, central venous oxygen sat 95, urine output 30 cc an hour. Net 6500 cc positive fluid balance in the last 24 hours. Continue Zosyn. [place] II score 21 09/26-hemoglobin down to 6.7. 2 units PRBC transfusion. No obvious source of bleed. White count down from 17.5-9.3. Potassium down to 3 on replacement. Off vasopressors. PEEP 8 FiO2 50%. Diuresing well. Lower total fluid infusion to 100 cc an hour cumulative including TPN. Initiate gentle diuresis to optimize lung compliance in anticipation of extubation. Improving AA gradient/PaO2 FiO2 ratio. Await interval chest imaging/blood gas. Anticipate extubation in the next 24 to 48 hours. Will require careful evaluation of RSBI/NIF/plateau pressures/pulmonary compliance in the setting of myasthenia for successful extubation. NG output 250 cc overnight bilious 09/27-her vital signs are maintained her ABG showing improvement in oxygenation and we decrease her PEEP to 6 and once her oxygenation maintained we will try to titrate down the FiO2 and will plan for sedation vacation. Dr. Currie ordered diuresis and agreed with the plan. Hemoglobin is 9.3 no evidence of any acute bleed. She has underlying history of myasthenia gravis which makes extubation difficult. She was opening her eyes even while on sedation which is a good sign. Improving the AA gradient and acute lung injury. She continues to have significant output on suctioning with a ananda material. 09/28-patient was on sedation vacation since this morning and she is doing well and we put her on spontaneous breathing trials and she did well and did an ABG which was within normal limits and her rapid shallow breathing index was within normal limits patient was off of sedation completely not on any sedatives or mu scle relaxants and she was extubated successfully and post extubation patient is doing well she was on 2 L of nasal cannula oxygen. Surgical team evaluated the patient and recommended clear liquid diet. Patient progressed well today and will use incentive spirometer. Pertinent ROS: Review of systems General-no distress she was complaining of some mild back pain Respiratory-cough, no respiratory distress Cardiac-no chest pain no palpitation Abdominal-mild abdominal discomfort otherwise no pain no nausea no vomiting Neuro-no headache no vision changes no focal deficit - Constitutional Vitals: Vital Signs Temp Pulse Resp BP Pulse Ox 99.6 F H 64 26 H 125/60 97 09/28/19 19:01 09/28/19 19:01 09/28/19 19:01 09/28/19 19:01 09/28/19 19:01 Period Temp Pulse Resp BP Sys/Archuleta Pulse Ox Last 24 Hr 98.2 F-100.1 F 64-100 14-26 112-161/60-99 94-99 Intake and Output 09/28/19 09/28/19 09/28/19 05:59 13:59 21:59 Intake Total 150 620 100 Output Total 3725 214 6742 Balance -1665 215 -1355 Intake & Output: Intake & Output 09/28/19 09/28/19 09/28/19 05:59 13:59 21:59 Intake Total 150 620 100 Output Total 0200 196 8476 Balance -1665 215 -1355 Intake: IV 150 620 100 Sodium Chloride 0.9% 250 ml @ 0 20 mls/hr IV .[id number] [facility] Rx#: [id number] Zosyn 3.375 gm In Dextrose 5% 50 100 in Water 50 ml @ 100 mls/hr IV Q6H [facility] Rx#:[id number] Potassium Chloride 40 Meq In 520 Dextrose 5% in Water 500 ml @ 130 mls/hr IV Q12H [facility] Rx#: [id number] Diprivan 1,000 mg In Premix 1 0 Bag @ 5 MCG/KG/MIN 4.521 mls/hr IV .Q22H8M [facility] Rx#:[id number] Output: Gastric Drainage 450 NG/OG 450 Urine Catheter Amount 5508 929 4910 Stool 75 Other: Urine Appearance Clear Clear Clear Urine Color Bright Yellow Bright Yellow Pale Urine Odor Normal Stool Size Small Small Stool Color Brown Brown Stool Consistency Loose Loose - Head Head exam: Present: normal inspection - Eye Eye exam: Present: EOMI, PERRL. Absent: nystagmus - ENT ENT exam: Present: mucous membranes moist, normal exam, normal external ear exam, normal oropharynx - Respiratory Respiratory exam: Present: normal respiratory exam, rales, rhonchi. Absent: accessory muscle use, chest wall tenderness, decreased breath sounds - Cardiovascular Cardiovascular exam: Present: normal rate and rhythm. Absent: bradycardia, clicks, diastolic murmur, gallop - GI/Abdominal GI/Abdominal exam: Present: soft, distended. Absent: guarding, tenderness - Neurological Exam Neurological exam: Present: alert, CN II-XII intact, oriented X3, reflexes normal. Absent: motor sensory deficit - Psychiatric Psychiatric exam: Present: flat affect. Absent: agitated, anxious, depressed Medical - PN: Obj Da - Labs CBC & Chem 7: 09/27/19 04:00 09/28/19 04:00 Labs: Abnormal Lab Results 09/28/19 09/27/19 09/27/19 04:00 04:00 04:00 RBC 3.35 L Hgb 9.3 L Hct 28.8 L POC Hct RDW 18.4 H MPV 7.3 L Gran % 85.2 H Lymph % (Auto) 8.0 L Lymph # (Auto) 0.7 L POC Potassium Potassium 3.0 L Chloride 92 L Carbon Dioxide 35 H Glucose 281 H 295 H POC Glucose Uric Acid 1.1 L 1.1 L Calcium POC WB Ioniz Calcium Phosphorus Magnesium 2.9 H Alkaline Phosphatase 158 H NT-Pro-B Natriuret Pep 3738.0 H Total Protein Albumin Globulin 2.1 L Triglycerides 200 H 168 H 09/26/19 09/26/19 09/26/19 07:25 04:00 04:00 RBC 2.47 L Hgb 6.7 L* Hct 21.1 L POC Hct 20.0 L* RDW 20.8 H MPV 7.2 L Gran % 86.3 H Lymph % (Auto) 6.1 L Lymph # (Auto) 0.6 L POC Potassium 3.0 L Potassium 3.2 L Chloride Carbon Dioxide Glucose 197 H POC Glucose 164 H Uric Acid 1.6 L Calcium 7.7 L POC WB Ioniz Calcium 0.90 L Phosphorus 2.6 L Magnesium Alkaline Phosphatase NT-Pro-B Natriuret Pep Total Protein 5.1 L Albumin 3.0 L Globulin 2.1 L Triglycerides Meds: Medications Acetaminophen (Tylenol) 650 mg PO Q6HP PRN PRN Reason: PAIN/FEVER > 101 Calcium Gluconate (Calcium Gluconate) 9.3 meq IV BID [facility] Stop: 09/30/19 09:00 Last Admin: 09/28/19 08:53 Dose: 9.3 meq Documented by: Chlorhexidine Gluconate (Peridex) 15 ml SWABMOUTH BID [facility] Last Admin: 09/28/19 08:53 Dose: 15 ml Documented by: Dextrose (Dextrose 50%) 0 ml IV UD PRN PRN Reason: Hypoglycemia Diagnostic Test (Pha) (Accu-Chek) 1 each FS Q6 [facility] Last Admin: 09/28/19 17:50 Dose: 1 each Documented by: Glucose (Insta-Glucose) 15 gm PO PRN PRN PRN Reason: Hypoglycemia Heparin Sodium (Porcine) (Heparin) 5,000 unit SQ Q12 [facility] Last Admin: 09/28/19 08:54 Dose: 5,000 unit Documented by: Hydrocortisone Sodium Succinate (Solu-Cortef) 50 mg IV Q8 [facility] Last Admin: 09/28/19 14:09 Dose: 50 mg Documented by: Hydromorphone HCl (Dilaudid) 1 mg IV Q2HP PRN; Protocol PRN Reason: Per Pain Protocol Last Admin: 09/28/19 00:56 Dose: 1 mg Documented by: Heparin Sodium/Sodium Chloride (Heparin/Ns) 500 mls @ 0 mls/hr IV .Q0M [facility]; Protocol Piperacillin Sod/Tazobactam (Sod 3.375 gm/ Dextrose) 50 mls @ 100 mls/hr IV Q6H [facility]; Protocol Last Admin: 09/28/19 17:52 Dose: 100 mls/hr Documented by: Acetaminophen (Ofirmev) 1,000 mg in 100 mls @ 200 mls/hr IV Q6HP PRN; Protocol PRN Reason: PAIN/FEVER > 101 Last Infusion: 09/28/19 14:29 Dose: Infused Documented by: Propofol 1,000 mg/ Premix 100 mls @ 4.521 mls/hr IV .Q22H8M [facility]; Protocol Last Titration: 09/28/19 11:23 Dose: Infused Documented by: Potassium Chloride 40 meq/ (Dextrose) 520 mls @ 130 mls/hr IV Q12H [facility] Stop: 09/29/19 05:59 Last Admin: 09/28/19 14:04 Dose: 130 mls/hr Documented by: Norepinephrine Bitartrate 16 (mg/ Sodium Chloride) 250 mls @ 9.375 mls/hr IV Q24HP PRN; Protocol PRN Reason: Hypotension Calcium Gluconate 10 meq/Magnesium Sulfate 32.48 meq/Potassium Chloride 120 meq/Potassium Phosphate 20 meq/Multivitamins/Minerals 10 ml/Selenium 60 mcg/ Amino Acids 2,105.5508 mls @ 75 mls/hr IV Q24H [facility] Last Admin: 09/28/19 11:53 Dose: 75 mls/hr Documented by: Insulin Human Lispro (Humalog) 0 unit SQ Q6 [facility]; Protocol Last Admin: 09/28/19 17:51 Dose: 12 units Documented by: Naloxone HCl (Narcan) 0.4 mg IV ONCE PRN PRN Reason: Opiate Reversal Promethazine HCl (Phenergan) 12.5 mg IV Q6HP PRN PRN Reason: Nausea And Vomiting Pyridostigmine Abercrombie (Regonol) 10 mg SC Q6 [facility] Last Admin: 09/28/19 17:52 Dose: 10 mg Documented by: Sodium Chloride (Saline Flush) 10 ml IV UD PRN PRN Reason: FLUSH Last Admin: 09/28/19 17:52 Dose: 10 ml Documented by: Sodium Chloride (Saline Flush) 10 ml IV Q12 [facility] Last Admin: 09/28/19 09:35 Dose: 10 ml Documented by: - ABG Interpretation ABG results: 09/24/19 09/25/19 22:50 10:28 ABG Methemoglobin 0.2 L 0.3 L VBG pH 7.43 H 7.46 H VBG pCO2 37.9 L 38.0 L VBG pO2 126 H 71 H VBG HCO3 24.3 26.7 VBG Total CO2 25.5 27.8 VBG O2 Saturation 95.3 H 91.0 H VBG Base Excess 0 2.7 H Medical - PN: A/P - Time Spent With Patient Total time spent is greater than 50% in coordination of care (as documented) at patient's floor/unit and/or counseling patient: Greater than 35 minutes - Narrative A/P Narrative: Acute hypoxic respiratory failure Acute lung injury from aspiration and aspiration pneumonitis Probably aspiration pneumonia Patient admitted with a bowel obstruction and had a large amount of emesis and probable aspiration PaO2 FiO2 ratio and AA gradient-improve P weaned off her ventilator He was on sedation vacation and did well Weaned off her FiO2 and SIMV mode Patient did well rapid shallow breathing index was within normal limits no hemodynamic instability Patient was extubated this afternoon Post extubation doing well on nasal cannula oxygen Follow-up ABG as needed Continue gentle diuresis She is off of fentanyl ARDS-acute lung injury Probably due to aspiration Improved Septic shock secondary to aspiration pneumonia She is off of pressors Continue Zosyn for aspiration pneumonia Hypokalemia hypomagnesemia Replacement ordered Acute renal failure due to septic shock-resolved Morbid obesity BMI over 40 Continue nutrition support and decubitus ulcer precautions Type 2 diabetes Continue sliding scale insulin History of panhypopituitarism Continue stress dose of hydrocortisone and IV thyroxine History of myasthenia gravis Continue pyridostigmine DVT prophylaxis-subcu heparin CODE STATUS-full code She was started on clear liquid diets-nutrition Total critical care time spent 70 minutes Medical - PN: Qual - VTE Deep Vein Thrombosis/Pulmonary Embolism Present on Admission: No
[2019-09-29] MEDS: INSULIN LISPRO 1 UNIT/0.01 ML UNIT SQ SCH ×4 (00:29→16:55)
[2019-09-29] MEDS: PYRIDOSTIGMINE BROMIDE 10 MG/2 ML ML SC SCH ×4 (00:29→17:43)
[2019-09-29] MEDS: PIPERACILLIN SODIUM/TAZOBACTAM 3.375 GM in DEXTROSE 5% IN WATER 50 ML IV SCH ×4 (00:29→17:43)
[2019-09-29] MEDS: POTASSIUM CHLORIDE 40 MEQ in DEXTROSE 5% IN WATER 500 ML IV SCH (02:01)
[2019-09-29] MEDS: PROPOFOL 1,000 MG in PREMIX 1 BAG IV SCH (04:42)
[2019-09-29 04:56] LABS: Basophils # (Auto) 0 K/mcL (0.0-0.3); Basophils % (Auto) 0.2 % (0.0-2.0); Eosinophils # (Auto) 0 K/mcL (0.0-0.7); Eosinophils % (Auto) 0 % (0.0-7.0); Granulocytes % (Auto) 75.9 % (38.0-78.0); Hematocrit 36.2 % (36.0-48.0); Hemoglobin 11.6 g/dL (12.0-15.0); Lymphocytes # (Auto) 1.2 K/mcL (1.5-4.8); Lymphocytes % (Auto) 14.1 % (15.5-49.0); Mean Cell Volume 85.5 fL (80.0-100.0); Mean Corpuscular HGB Conc 32.1 g/dL (31.0-36.0); Mean Platelet Volume 7.3 fL (7.4-10.4); Monocytes # (Auto) 0.8 K/mcL (0.1-0.9); Monocytes % (Auto) 9.8 % (1.0-12.0); Platelet Count 274 K/mcL (140-440); RBC 4.24 M/mcL (4.00-5.20); Red Cell Distribution Width 18.1 % (11.5-14.5); WBC 8.4 K/mcL (4.5-11.0)
[2019-09-29 05:05] LABS: ALT/SGPT 13 U/l (0-40); AST/SGOT 8 U/l (0-37); Albumin 3.6 gm/dL (3.2-5.2); Albumin/Globulin Ratio 1.2 (1.0-2.3); Alkaline Phosphatase 113 U/L (39-117); Bilirubin,Direct < 0.2 mg/dL (0.0-0.3); Bilirubin,Total 0.2 mg/dL (0.0-1.0); Calcium 9.4 mg/dl (8.6-10.4); Carbon Dioxide 31 mmol/L (22-30); Chloride 96 mmol/L (96-108); Glomerular Filtration Rate 107; Glucose 211 mg/dL (70-105); Lactate Dehydrogenase 188 U/L (94-250); Phosphorous 2.7 mg/dL (2.7-4.5); Triglycerides 258 mg/dl (<150)
[2019-09-29 05:06] LABS: Blood Urea Nitrogen 22 mg/dl (6-20)
[2019-09-29] MEDS: HYDROCORTISONE SOD SUCC 100 MG VIAL IV SCH ×3 (05:32→22:16)
[2019-09-29] MEDS: ACETAMINOPHEN 1,000 MG/100 ML BOTTLE IV PRN ×3 (05:32→19:14)
[2019-09-29 06:52] LABS: proBNP < 50.0 pg/ml (0-125)
--- NOTE | 2019-09-29 08:37 | XRay Report ---
CLINICAL INFORMATION: Mechanically Ventilated COMPARISON: 09/28/2019 FINDINGS: Heart size, mediastinum and pulmonary vessels are unremarkable. Endotracheal and NG tubes are now out. Port-A-Cath and right subclavian line remain in stable satisfactory position. Mild patchy infiltrate or atelectasis right base has improved. Left basilar atelectasis is also improved and only minimal residual. Chronic elevation right diaphragm noted IMPRESSION: Mild patchy right and minimal left basilar atelectasis or infiltrate - improving. Chronic elevation - right diaphragm Interpreted and Authenticated by: All Lundberg 09/29/19
[2019-09-29] MEDS: 0.9 % SODIUM CHLORIDE 10 ML SYRINGE IV SCH ×2 (09:00→22:30)
[2019-09-29] MEDS: HEPARIN 5,000 UNIT/ML VIAL SQ SCH ×2 (09:00→20:17)
[2019-09-29] MEDS: CALCIUM GLUCONATE 4.65 MEQ/10 ML VIAL IV SCH ×2 (09:30→20:17)
[2019-09-29] MEDS: CHLORHEXIDINE GLUCONATE 1 ML ORAL.SOL SWABMOUTH SCH ×2 (09:30→20:16)
[2019-09-29] MEDS ORDERED: MAGNESIUM SULFATE IV SCH (11:00)
[2019-09-29] MEDS ORDERED: POTASSIUM CHLORIDE IV SCH (11:00)
[2019-09-29] MEDS ORDERED: [UNRECOGNIZED DRUG - OTHER] IV SCH (11:00)
[2019-09-29] MEDS ORDERED: CALCIUM GLUCONATE IV SCH (11:00)
--- NOTE | 2019-09-29 11:10 | Internal Med Progress Note ---
Medical - PN: Subj Patient information: Note initiated : 09/29/19 at 11:09 am Service Date, if different from initiated Date: [] Patient: Dayanna Stephens a 58 y/o F admitted on 09/22/19 for NAUSEA AND VOMITING. Chief Complaint: [] Interval history: Ms. Stephens is a 58 year old morbidly obese F with a complex medical history of parathyroidism , chronic hypocalcemia, polyglandular syndrome, sarcoidosis, myasthenia gravis and multiple bowel obstruction/abdominal surgeries with colostomy who underwent recent hospitalization at [facility] following a bowel obstruction and underwent surgery x2 between August 16 in September 21. Patient was discharged to care center however due to worsening abdominal pain and nausea vomiting she was admitted on 09/23 under surgical service for management of bowel obstruction. She underwent NG decompression. Early this morning patient was found to be increasingly dyspneic with sats in mid 60s following episode of nausea and large emesis. Patient was evaluated by surgery and underwent intubation due to profound hypoxia and was initiated on mechanical ventilation. Systolics was around 80 and was started on Levophed after crystalloid boluses. Subsequently hospitalist service was consulted for management of mechanical ventilation and shock/hypoxic respiratory failure At the time evaluation patient is on mechanical ventilation. Family members are present. Most of the history is obtained from review of medical records and Dr. Currie surgeon Patient has an ostomy which was noted to be draining copious amount of liquid output She is febrile at 101.1. Is currently on vasopressors at 10 mics. She received 3 L of crystalloids. Martinez is draining dark urine. Right subclavian central line was secured by anesthesia. Initial blood gas 7.35/40 2/64 on 70% FiO2 PEEP 5, plateau pressure 23 peak pressure 12, tidal volume 450 rate 14. 12/13-patient remains critically ill on mechanical ventilation. Copious NG output. Patient responding to commands. Started on stress dose hydrocortisone in the setting of myasthenia and previously being on prednisone. Off pressors. Map at goal. ABG reviewed 7.42/34/56. Interval chest imaging slightly impro larry however on PEEP 8/FiO2 50% with large AA gradient and PaO2 FiO2 ratio around 100. Patient will be a difficult candidate for ventilator weaning in the setting of myasthenia and morbid obesity with ALI/early ARDS picture. White count 17.5, central venous oxygen sat 95, urine output 30 cc an hour. Net 6500 cc positive fluid balance in the last 24 hours. Continue Zosyn. Ute II score 21 09/26-hemoglobin down to 6.7. 2 units PRBC transfusion. No obvious source of bleed. White count down from 17.5-9.3. Potassium down to 3 on replacement. Off vasopressors. PEEP 8 FiO2 50%. Diuresing well. Lower total fluid infusion to 100 cc an hour cumulative including TPN. Initiate gentle diuresis to optimize lung compliance in anticipation of extubation. Improving AA gradient/PaO2 FiO2 ratio. Await interval chest imaging/blood gas. Anticipate extubation in the next 24 to 48 hours. Will require careful evaluation of RSBI/NIF/plateau pressures/pulmonary compliance in the setting of myasthenia for successful extubation. NG output 250 cc overnight bilious 09/27-her vital signs are maintained her ABG showing improvement in oxygenation and we decrease her PEEP to 6 and once her oxygenation maintained we will try to titrate down the FiO2 and will plan for sedation vacation. Dr. Currie ordered diuresis and agreed with the plan. Hemoglobin is 9.3 no evidence of any acute bleed. She has underlying history of myasthenia gravis which makes extubation difficult. She was opening her eyes even while on sedation which is a good sign. Improving the AA gradient and acute lung injury. She continues to have significant output on suctioning with a ananda material. 09/28-patient was on sedation vacation since this morning and she is doing well and we put her on spontaneous breathing trials and she did well and did an ABG which was within normal limits and her rapid shallow breathing index was within normal limits patient was off of sedation completely not on any sedatives or m uscle relaxants and she was extubated successfully and post extubation patient is doing well she was on 2 L of nasal cannula oxygen. Surgical team evaluated the patient and recommended clear liquid diet. Patient progressed well today and will use incentive spirometer. 09/29-post extubation patient is doing great she is tolerating clear liquid diet and she is also on TPN her diet can be advanced and will await further surgical recommendations. Respiratory failure improved and will try weaning her off of oxygen. I encourage her to use incentive spirometer. Continue broad-spectrum antibiotic for now which can be changed to p.o. Augmentin upon discharge for total 10 days Pertinent ROS: Review of systems General-no distress she was complaining of some mild back pain Respiratory-cough, no respiratory distress Cardiac-no chest pain no palpitation Abdominal-mild abdominal discomfort otherwise no pain no nausea no vomiting Neuro-no headache no vision changes no focal deficit - Constitutional Vitals: Vital Signs Temp Pulse Resp BP Pulse Ox 99.6 F H 79 17 137/77 97 09/29/19 10:01 09/29/19 10:01 09/29/19 10:01 09/29/19 10:01 09/29/19 10:01 Period Temp Pulse Resp BP Sys/Archuleta Pulse Ox Last 24 Hr 98.7 F-100.1 F 57-91 16-31 111-158/55-94 94-98 Intake and Output 09/28/19 09/29/19 09/29/19 21:59 05:59 13:59 Intake Total 670 150 100 Output Total 1775 788 530 Balance -1105 -638 -430 Weight 212 lb 1 oz Intake & Output: Intake & Output 09/28/19 09/29/19 09/29/19 21:59 05:59 13:59 Intake Total 670 150 100 Output Total 1775 788 530 Balance -1105 -638 -430 Weight 212 lb 1 oz Intake: IV 670 150 Zosyn 3.375 gm In Dextrose 5% 50 50 in Water 50 ml @ 100 mls/hr IV Q6H [facility] Rx#:[id number] Potassium Chloride 40 Meq In 520 Dextrose 5% in Water 500 ml @ 130 mls/hr IV Q12H [facility] Rx#: [id number] Oral 100 Output: Gastric Drainage 450 NG/OG 450 Urine Catheter Amount 1325 538 430 Stool 250 100 Other: Urine Appearance Clear Clear Uretheral (Martinez) Clear Clear Urine Color Bright Yellow Bright Yellow Uretheral (Martinez) Bright Yellow Bright Yellow Urine Odor Normal Normal Stool Size Small Small Stool Color Brown Brown Brown Green Green Green Stool Consistency Liquid Liquid Liquid - Head Head exam: Present: atraumatic, normal inspection - Eye Eye exam: Present: conjunctival injection, normal appearance - ENT ENT exam: Present: mucous membranes moist, normal exam, normal external ear exam, normal oropharynx - Neck Neck exam: Present: normal inspection. Absent: lymphadenopathy, meningismus - Respiratory Respiratory exam: Present: rales. Absent: accessory muscle use, chest wall tenderness, respiratory distress - Cardiovascular Cardiovascular exam: Present: normal rate and rhythm. Absent: bradycardia, diastolic murmur, gallop - GI/Abdominal GI/Abdominal exam: Present: normal bowel sounds, soft, distended. Absent: diminished bowel sounds - Neurological Exam Neurological exam: Present: alert, CN II-XII intact, oriented X3, reflexes normal. Absent: motor sensory deficit Medical - PN: Obj Da - Labs CBC & Chem 7: 09/29/19 04:10 09/29/19 04:10 Labs: Abnormal Lab Results 09/29/19 09/29/19 09/28/19 04:10 04:10 04:00 RBC Hgb 11.6 L Hct RDW 18.1 H MPV 7.3 L Gran % Lymph % (Auto) 14.1 L Lymph # (Auto) 1.2 L Potassium 5.2 H 3.0 L Chloride 92 L Carbon Dioxide 31 H 35 H BUN 22 H Creatinine 0.5 L Glucose 211 H 281 H Uric Acid 1.0 L 1.1 L Magnesium 2.9 H Alkaline Phosphatase NT-Pro-B Natriuret Pep 3738.0 H Globulin Triglycerides 258 H 200 H 09/27/19 09/27/19 04:00 04:00 RBC 3.35 L Hgb 9.3 L Hct 28.8 L RDW 18.4 H MPV 7.3 L Gran % 85.2 H Lymph % (Auto) 8.0 L Lymph # (Auto) 0.7 L Potassium Chloride Carbon Dioxide BUN Creatinine Glucose 295 H Uric Acid 1.1 L Magnesium Alkaline Phosphatase 158 H NT-Pro-B Natriuret Pep Globulin 2.1 L Triglycerides 168 H Meds: Medications Acetaminophen (Tylenol) 650 mg PO Q6HP PRN PRN Reason: PAIN/FEVER > 101 Calcium Gluconate (Calcium Gluconate) 9.3 meq IV BID [facility] Stop: 09/30/19 09:00 Last Admin: 09/28/19 20:34 Dose: 9.3 meq Documented by: Chlorhexidine Gluconate (Peridex) 15 ml [place]TH BID [facility] Last Admin: 09/28/19 20:35 Dose: 15 ml Documented by: Dextrose (Dextrose 50%) 0 ml IV UD PRN PRN Reason: Hypoglycemia Diagnostic Test (Pha) (Accu-Chek) 1 each FS Q6 [facility] Last Admin: 09/29/19 05:33 Dose: 1 each Documented by: Glucose (Insta-Glucose) 15 gm PO PRN PRN PRN Reason: Hypoglycemia Heparin Sodium (Porcine) (Heparin) 5,000 unit SQ Q12 [facility] Last Admin: 09/28/19 20:34 Dose: 5,000 unit Documented by: Hydrocortisone Sodium Succinate (Solu-Cortef) 50 mg IV Q8 [facility] Last Admin: 09/29/19 05:32 Dose: 50 mg Documented by: Hydromorphone HCl (Dilaudid) 1 mg IV Q2HP PRN; Protocol PRN Reason: Per Pain Protocol Last Admin: 09/28/19 00:56 Dose: 1 mg Documented by: Heparin Sodium/Sodium Chloride (Heparin/Ns) 500 mls @ 0 mls/hr IV .Q0M [facility]; Protocol Piperacillin Sod/Tazobactam (Sod 3.375 gm/ Dextrose) 50 mls @ 100 mls/hr IV Q6H [facility]; Protocol Last Admin: 09/29/19 05:31 Dose: 100 mls/hr Documented by: Acetaminophen (Ofirmev) 1,000 mg in 100 mls @ 200 mls/hr IV Q6HP PRN; Protocol PRN Reason: PAIN/FEVER > 101 Last Admin: 09/29/19 05:32 Dose: 200 mls/hr Documented by: Propofol 1,000 mg/ Premix 100 mls @ 4.521 mls/hr IV .Q22H8M [facility]; Protocol Last Admin: 09/29/19 04:42 Dose: Not Given Documented by: Norepinephrine Bitartrate 16 (mg/ Sodium Chloride) 250 mls @ 9.375 mls/hr IV Q 24HP PRN; Protocol PRN Reason: Hypotension Calcium Gluconate 10 meq/Magnesium Sulfate 32.48 meq/Potassium Chloride 60 meq/Potassium Phosphate 40 meq/Multivitamins/Minerals 10 ml/Selenium 60 mcg/ Sodium Chloride 20 meq/ Amino Acids 2,085.0962 mls @ 75 mls/hr IV Q24H [facility] Insulin Human Lispro (Humalog) 0 unit SQ Q6 [facility]; Protocol Last Admin: 09/29/19 05:33 Dose: 9 units Documented by: Naloxone HCl (Narcan) 0.4 mg IV ONCE PRN PRN Reason: Opiate Reversal Promethazine HCl (Phenergan) 12.5 mg IV Q6HP PRN PRN Reason: Nausea And Vomiting Pyridostigmine [place] (Regonol) 10 mg SC Q6 [facility] Last Admin: 09/29/19 05:34 Dose: 10 mg Documented by: Sodium Chloride (Saline Flush) 10 ml IV UD PRN PRN Reason: FLUSH Last Admin: 09/28/19 17:52 Dose: 10 ml Documented by: Sodium Chloride (Saline Flush) 10 ml IV Q12 [facility] Last Admin: 09/28/19 20:34 Dose: 10 ml Documented by: - ABG Interpretation ABG results: 09/24/19 09/25/19 22:50 10:28 ABG Methemoglobin 0.2 L 0.3 L VBG pH 7.43 H 7.46 H VBG pCO2 37.9 L 38.0 L VBG pO2 126 H 71 H VBG HCO3 24.3 26.7 VBG Total CO2 25.5 27.8 VBG O2 Saturation 95.3 H 91.0 H VBG Base Excess 0 2.7 H Medical - PN: A/P - Time Spent With Patient Total time spent is greater than 50% in coordination of care (as documented) at patient's floor/unit and/or counseling patient: - Narrative A/P Narrative: Acute hypoxic respiratory failure Acute lung injury from aspiration and aspiration pneumonitis Probably aspiration pneumonia She is status post extubation on and doing well and will try to wean off the oxygen Post extubation doing well on nasal cannula oxygen Follow-up ABG as needed Continue gentle diuresis She is off of fentanyl ARDS-acute lung injury Probably due to aspiration Improved Septic shock secondary to aspiration pneumonia She is off of pressors Continue Zosyn for aspiration pneumonia and can change to Augmentin for total 10 days upon discharge Hypokalemia hypomagnesemia Replacement ordered Acute renal failure due to septic shock-resolved Morbid obesity BMI over 40 Continue nutrition support and decubitus ulcer precautions Type 2 diabetes Continue sliding scale insulin History of panhypopituitarism Continue stress dose of hydrocortisone and IV thyroxine History of myasthenia gravis Continue pyridostigmine DVT prophylaxis-subcu heparin CODE STATUS-full code Nutrition-diet can be advanced as per surgical recommendation and she is also on TPN which can be stopped when she is able to take regular diet Medical - PN: Qual - VTE Deep Vein Thrombosis/Pulmonary Embolism Present on Admission: No
--- NOTE | 2019-09-29 12:31 | General Surgery Progress Note ---
Subjective Patient reports: feels better, pain is less, tolerating liquids well, flatus, bowel movement, fever Narrative: Note initiated : 09/29/19 at 12:30 pm Service Date, if different from initiated Date: [] Patient: Dayanna Stephens 58 y/o F admitted on 09/22/19 for NAUSEA AND VOMITING. Chief Complaint: [Patient states that she feels better but she is weak. She has complained of pain that is mostly back pain from being in bed. She denies any shortness of breath or chest discomfort. She denies nausea. She has no respiratory difficulty and is oxygenating well on nasal cannula. Her stoma is functioning and she does not have any abdominal distention.] Objective Temp Pulse Resp BP Pulse Ox 99.8 F H 79 20 135/78 97 09/29/19 12:01 09/29/19 10:01 09/29/19 12:01 09/29/19 12:01 09/29/19 10:01 - Additional Data Intake & Output - Last 24 hours: Intake & Output 09/27/19 09/28/19 09/29/19 09/30/19 05:59 05:59 05:59 05:59 Intake Total 4416 3307.0708 1440 150 Output Total 8320 8995 2968 905 Balance -3904 -5687.9292 -1528 -755 Weight 236 lb 3.2 oz 216 lb 11.2 oz 212 lb 1 oz - General physical appearance moderate distress, moderate pain, chronically ill, obese - Eyes PERRL, normal ocular movement - ENT normal pinna, normal nares, normal mucosa, no hearing loss, no congestion - Neck no masses, no bruits, trachea midline, no lymphadenopathy, no venous distension - Respiratory normal expansion, normal respiratory effort, clear to auscultation - Cardiovascular Cardiovascular exam: Present: normal rate and rhythm, RRR, +S1, +S2. Absent: JVD, tachycardia - Abdomen non tender, bowel sounds (present), surgical scars (none), masses (none) - Rectum normal sphincter tone, no hemorrhoids, no tenderness, no masses, no bleeding - Integumentary no rash, no growths, no abnormal pigmentation - Neurologic normal coordination, normal sensation - Musculoskeletal normal gait, normal posture - Psychiatric oriented to time, oriented to person, oriented to place, speech is normal, memory intact - Labs 09/29/19 04:10 09/29/19 04:10 Diabetes panel 09/29/19 Range/Units 04:10 Sodium 140 (133-145) mmol/L Potassium 5.2 H (3.3-5.1) mmol/L Chloride 96 (96-108) mmol/L Carbon Dioxide 31 H (22-30) mmol/L BUN 22 H (6-20) mg/dl Creatinine 0.5 L (0.6-1.1) mg/dl Glucose 211 H (70-105) mg/dL Calcium 9.4 (8.6-10.4) mg/dl AST 8 (0-37) U/l ALT 13 (0-40) U/l Alkaline Phosphatase 113 (39-117) U/L Total Protein 6.6 (5.9-8.4) gm/dL Albumin 3.6 (3.2-5.2) gm/dL Triglycerides 258 H (<150) mg/dl Calcium panel 09/29/19 Range/Units 04:10 Calcium 9.4 (8.6-10.4) mg/dl Phosphorus 2.7 (2.7-4.5) mg/dL Albumin 3.6 (3.2-5.2) gm/dL Pituitary panel 09/29/19 Range/Units 04:10 Sodium 140 (133-145) mmol/L Potassium 5.2 H (3.3-5.1) mmol/L Chloride 96 (96-108) mmol/L Carbon Dioxide 31 H (22-30) mmol/L BUN 22 H (6-20) mg/dl Creatinine 0.5 L (0.6-1.1) mg/dl Glucose 211 H (70-105) mg/dL Calcium 9.4 (8.6-10.4) mg/dl Adrenal panel 09/29/19 Range/Units 04:10 Sodium 140 (133-145) mmol/L Potassium 5.2 H (3.3-5.1) mmol/L Chloride 96 (96-108) mmol/L Carbon Dioxide 31 H (22-30) mmol/L BUN 22 H (6-20) mg/dl Creatinine 0.5 L (0.6-1.1) mg/dl Glucose 211 H (70-105) mg/dL Calcium 9.4 (8.6-10.4) mg/dl Total Bilirubin 0.2 (0.0-1.0) mg/dL AST 8 (0-37) U/l ALT 13 (0-40) U/l Alkaline Phosphatase 113 (39-117) U/L Total Protein 6.6 (5.9-8.4) gm/dL Albumin 3.6 (3.2-5.2) gm/dL Assessment and Plan (1) Acute respiratory insufficiency Status: Resolved Current Visit: Yes (2) Chronic intestinal pseudo-obstruction Status: Chronic Assessment and plan: Patient has good output through her stoma and she does not have any significant distention Current Visit: Yes (3) Chronic use of steroids Problem details: for myasthenia gravis; 10+ years Status: Chronic Assessment and plan: Solu-Medrol 62 mg IV every 12 hours Current Visit: No (4) Hypertension Status: Chronic Current Visit: No (5) Myasthenia gravis Status: Chronic Current Visit: No (6) LA (obstructive sleep apnea) Status: Chronic Current Visit: No (7) Obesity, Class II, BMI 35-39.9 Status: Chronic Current Visit: No - Time Spent With Patient Total time spent is greater than 50% in coordination of care (as documented) at patient's floor/unit and/or counseling patient:
[2019-09-29] MEDS: HYDROmorphone 2 MG/ML VIAL IV PRN (20:17)
[2019-09-29] MEDS: 0.9 % SODIUM CHLORIDE 10 ML SYRINGE IV PRN (22:18)
[2019-09-30] MEDS: PYRIDOSTIGMINE BROMIDE 10 MG/2 ML ML SC SCH ×5 (00:16→23:33)
[2019-09-30] MEDS: INSULIN LISPRO 1 UNIT/0.01 ML UNIT SQ SCH ×5 (00:21→23:49)
[2019-09-30] MEDS: PIPERACILLIN SODIUM/TAZOBACTAM 3.375 GM in DEXTROSE 5% IN WATER 50 ML IV SCH ×5 (00:21→23:33)
[2019-09-30] MEDS: PROPOFOL 1,000 MG in PREMIX 1 BAG IV SCH (00:52)
[2019-09-30] MEDS: ACETAMINOPHEN 1,000 MG/100 ML BOTTLE IV PRN ×4 (02:00→21:22)
[2019-09-30] MEDS: 0.9 % SODIUM CHLORIDE 10 ML SYRINGE IV PRN (04:00)
[2019-09-30] MEDS: HYDROCORTISONE SOD SUCC 100 MG VIAL IV SCH ×3 (05:59→21:22)
[2019-09-30 07:00] LABS: Basophils # (Auto) 0 K/mcL (0.0-0.3); Basophils % (Auto) 0.2 % (0.0-2.0); Eosinophils # (Auto) 0 K/mcL (0.0-0.7); Eosinophils % (Auto) 0.2 % (0.0-7.0); Granulocytes % (Auto) 73.7 % (38.0-78.0); Hematocrit 38.1 % (36.0-48.0); Hemoglobin 11.9 g/dL (12.0-15.0); Lymphocytes # (Auto) 1.5 K/mcL (1.5-4.8); Lymphocytes % (Auto) 15.5 % (15.5-49.0); Mean Cell Volume 86.2 fL (80.0-100.0); Mean Corpuscular HGB Conc 31.2 g/dL (31.0-36.0); Mean Platelet Volume 7.7 fL (7.4-10.4); Monocytes % (Auto) 10.4 % (1.0-12.0); Platelet Count 304 K/mcL (140-440); RBC 4.42 M/mcL (4.00-5.20); Red Cell Distribution Width 18.3 % (11.5-14.5); WBC 9.7 K/mcL (4.5-11.0)
[2019-09-30 07:29] LABS: Appearance,Urine CLEAR; Bacteria,Urine 0 /hpf (0); Bilirubin,Urine NEG (NEG); Color,Urine YELLOW; Culture Indicated,Urine NO; Glucose,Urine (UA) NEGATIVE (NEG); Ketones,Urine NEG (NEG); Leukocyte Esterase,Urine NEG /uL (NEG); Mucus,Urine FEW /hpf (0); Nitrate,Urine NEG (NEG); Protein,Urine NEG (NEG); Specific Gravity,Urine 1.029 (1.000-1.035); Urine Blood NEG mg/dL (<0.03); Urine Hyaline Cast 2 /lpf (0-2); Urine RBC 1 /hpf (0-1); Urine Squamous Epithelial Cell 0 /hpf (0-4); Urine Transitional Epi Cells < 1 /hpf (0-2); Urine WBC < 1 /hpf (0-4); Urobilinogen,Urine NEG (NEG)
[2019-09-30 07:36] LABS: ALT/SGPT 20 U/l (0-40); AST/SGOT 13 U/l (0-37); Albumin 3.4 gm/dL (3.2-5.2); Albumin/Globulin Ratio 1.1 (1.0-2.3); Alkaline Phosphatase 142 U/L (39-117); Bilirubin,Direct < 0.2 mg/dL (0.0-0.3); Bilirubin,Total 0.2 mg/dL (0.0-1.0); Blood Urea Nitrogen 25 mg/dl (6-20); Chloride 98 mmol/L (96-108); Globulin 3.2 gm/dL (2.2-3.7); Glomerular Filtration Rate 107; Glucose 187 mg/dL (70-105); Lactate Dehydrogenase 218 U/L (94-250); Phosphorous 2.5 mg/dL (2.7-4.5); Uric Acid 1.1 mg/dL (2.5-8.0)
[2019-09-30 07:39] LABS: Carbon Dioxide 22 mmol/L (22-30); Triglycerides 324 mg/dl (<150)
[2019-09-30] MEDS ORDERED: FLUCONAZOLE 200 MG in PREMIX 1 BAG IV ONE (09:10)
[2019-09-30] MEDS: CHLORHEXIDINE GLUCONATE 1 ML ORAL.SOL SWABMOUTH SCH ×2 (10:00→20:38)
[2019-09-30] MEDS: HEPARIN 5,000 UNIT/ML VIAL SQ SCH ×2 (10:00→20:38)
[2019-09-30] MEDS: CALCIUM GLUCONATE 4.65 MEQ/10 ML VIAL IV SCH (10:00)
[2019-09-30] MEDS: 0.9 % SODIUM CHLORIDE 10 ML SYRINGE IV SCH ×2 (10:01→20:39)
[2019-09-30] MEDS: traMADol 50 MG TABLET PO PRN ×3 (10:02→20:39)
--- NOTE | 2019-09-30 10:59 | Internal Med Progress Note ---
Medical - PN: Subj Patient information: Note initiated : 09/30/19 at 10:56 am Service Date, if different from initiated Date: [] Patient: Dayanna Stephens a 58 y/o F admitted on 09/22/19 for NAUSEA AND VOMITING. Chief Complaint: [] Interval history: Ms. Stephens is a 58 year old morbidly obese F with a complex medical history of parathyroidism , chronic hypocalcemia, polyglandular syndrome, sarcoidosis, myasthenia gravis and multiple bowel obstruction/abdominal surgeries with colostomy who underwent recent hospitalization at [facility] following a bowel obstruction and underwent surgery x2 between August 16 in September 21. Patient was discharged to care center however due to worsening abdominal pain and nausea vomiting she was admitted on 09/23 under surgical service for management of bowel obstruction. She underwent NG decompression. Early this morning patient was found to be increasingly dyspneic with sats in mid 60s following episode of nausea and large emesis. Patient was evaluated by surgery and underwent intubation due to profound hypoxia and was initiated on mechanical ventilation. Systolics was around 80 and was started on Levophed after crystalloid boluses. Subsequently hospitalist service was consulted for management of mechanical ventilation and shock/hypoxic respiratory failure At the time evaluation patient is on mechanical ventilation. Family members are present. Most of the history is obtained from review of medical records and Dr. Currie surgeon Patient has an ostomy which was noted to be draining copious amount of liquid output She is febrile at 101.1. Is currently on vasopressors at 10 mics. She received 3 L of crystalloids. Martinez is draining dark urine. Right subclavian central line was secured by anesthesia. Initial blood gas 7.35/40 2/64 on 70% FiO2 PEEP 5, plateau pressure 23 peak pressure 12, tidal volume 450 rate 14. 12/13-patient remains critically ill on mechanical ventilation. Copious NG output. Patient responding to commands. Started on stress dose hydrocortisone in the setting of myasthenia and previously being on prednisone. Off pressors. Map at goal. ABG reviewed 7.42/34/56. Interval chest imaging slightly impro larry however on PEEP 8/FiO2 50% with large AA gradient and PaO2 FiO2 ratio around 100. Patient will be a difficult candidate for ventilator weaning in the setting of myasthenia and morbid obesity with ALI/early ARDS picture. White count 17.5, central venous oxygen sat 95, urine output 30 cc an hour. Net 6500 cc positive fluid balance in the last 24 hours. Continue Zosyn. [place] II score 21 09/26-hemoglobin down to 6.7. 2 units PRBC transfusion. No obvious source of bleed. White count down from 17.5-9.3. Potassium down to 3 on replacement. Off vasopressors. PEEP 8 FiO2 50%. Diuresing well. Lower total fluid infusion to 100 cc an hour cumulative including TPN. Initiate gentle diuresis to optimize lung compliance in anticipation of extubation. Improving AA gradient/PaO2 FiO2 ratio. Await interval chest imaging/blood gas. Anticipate extubation in the next 24 to 48 hours. Will require careful evaluation of RSBI/NIF/plateau pressures/pulmonary compliance in the setting of myasthenia for successful extubation. NG output 250 cc overnight bilious 09/27-her vital signs are maintained her ABG showing improvement in oxygenation and we decrease her PEEP to 6 and once her oxygenation maintained we will try to titrate down the FiO2 and will plan for sedation vacation. Dr. Currie ordered diuresis and agreed with the plan. Hemoglobin is 9.3 no evidence of any acute bleed. She has underlying history of myasthenia gravis which makes extubation difficult. She was opening her eyes even while on sedation which is a good sign. Improving the AA gradient and acute lung injury. She continues to have significant output on suctioning with a ananda material. 09/28-patient was on sedation vacation since this morning and she is doing well and we put her on spontaneous breathing trials and she did well and did an ABG which was within normal limits and her rapid shallow breathing index was within normal limits patient was off of sedation completely not on any sedatives or m uscle relaxants and she was extubated successfully and post extubation patient is doing well she was on 2 L of nasal cannula oxygen. Surgical team evaluated the patient and recommended clear liquid diet. Patient progressed well today and will use incentive spirometer. 09/29-post extubation patient is doing great she is tolerating clear liquid diet and she is also on TPN her diet can be advanced and will await further surgical recommendations. Respiratory failure improved and will try weaning her off of oxygen. I encourage her to use incentive spirometer. Continue broad-spectrum antibiotic for now which can be changed to p.o. Augmentin upon discharge for total 10 days 09/30-patient spiked fever last night and received 2 dose of Tylenol ordered a set of blood culture, ordered a urine analysis-urine no signs of UTI. Patient has severe atelectasis and she is not using incentive spirometer. Atelectasis could be the reason for her fever and she also has Mitra albicans growing in h er sputum culture and given single dose of fluconazole IV 200 mg. I encouraged the patient to use I-S and if she continued having fever we should repeat a CT scan of her chest and abdomen to look for any abscess or source of infection or empyema. Otherwise I continued Zosyn but if she spikes fever again I recommend adding vancomycin and ordering CT scan. Pertinent ROS: Review of systems General-no distress she was complaining of some mild back pain Respiratory-cough, no respiratory distress Cardiac-no chest pain no palpitation Abdominal-mild abdominal discomfort otherwise no pain no nausea no vomiting Neuro-no headache no vision changes no focal deficit Musculoskeletal-patient is complaining of severe back pain - Constitutional Vitals: Vital Signs Temp Pulse Resp BP Pulse Ox 99.6 F H 98 H 15 148/89 95 09/30/19 10:01 09/30/19 10:01 09/30/19 08:00 09/30/19 10:01 09/30/19 10:01 Period Temp Pulse Resp BP Sys/Archuleta Pulse Ox Last 24 Hr 98.6 F-100.6 F 73-141 12-36 94-158/58-106 93-99 Intake and Output 09/29/19 09/30/19 09/30/19 21:59 05:59 13:59 Intake Total 2995.5508 150 Output Total 690 580 280 Balance 2305.5508 -430 -280 Weight 218 lb 11.2 oz Intake & Output: Intake & Output 09/29/19 09/30/19 09/30/19 21:59 05:59 13:59 Intake Total 2995.5508 150 Output Total 690 580 280 Balance 2305.5508 -430 -280 Weight 218 lb 11.2 oz Intake: IV 2775.5508 150 Calcium Gluconate 10 Meq 2105.5508 Magnesium Sulfate 32.48 Meq Potassium Chloride 120 Meq Potassium Phosphate 20 Meq Infuvite Adult 10 ml Selenium 60 Mcg In Clinimix 5%-20% Solution 2,000 ml @ 75 mls/hr IV Q24H COUNTS INCLUDE 234 BEDS AT THE [facility] Rx#:[id number] Zosyn 3.375 gm In Dextrose 5% 50 50 in Water 50 ml @ 100 mls/hr IV Q6H MALENA Rx#:[id number] Potassium Chloride 40 Meq In 520 Dextrose 5% in Water 500 ml @ 130 mls/hr IV Q12H MALNEA Rx#: [id number] Oral 220 Output: Urine Catheter Amount 340 580 280 Stool 350 Other: Percent of Meal Consumed 25% Feeding Ability Independent Urine Appearance Clear Clear Clear Sediment Uretheral (Martinez) Clear Sediment Urine Color Pale Bright Yellow Uretheral (Martinez) Bright Yellow Dark Yellow Urine Odor Normal Stool Size Small Stool Color Brown Brown Yellow Yellow Green Green Stool Consistency Liquid Liquid General appearance: cooperative, morbidly obese - Head Head exam: Present: atraumatic, normal inspection, normocephalic - Eye Eye exam: Present: normal appearance. Absent: nystagmus, periorbital swelling, periorbital tenderness - ENT ENT exam: Present: normal exam, normal external ear exam, normal oropharynx - Neck Neck exam: Present: normal inspection. Absent: lymphadenopathy, meningismus - Respiratory Respiratory exam: Present: decreased breath sounds, prolonged expiratory phase. Absent: accessory muscle use, rales, wheezes - Cardiovascular Cardiovascular exam: Present: normal rate and rhythm. Absent: bradycardia, clicks, diastolic murmur, gallop - GI/Abdominal GI/Abdominal exam: Present: normal bowel sounds, soft, distended. Absent: diminished bowel sounds - Neurological Exam Neurological exam: Present: alert, oriented X3, reflexes normal. Absent: motor sensory deficit - Psychiatric Psychiatric exam: Present: normal affect, normal mood. Absent: agitated, anxious Medical - PN: Obj Da - Labs CBC & Chem 7: 09/30/19 04:32 09/30/19 04:32 Labs: Abnormal Lab Results 09/30/19 09/30/19 09/29/19 04:32 04:32 04:10 Hgb 11.9 L 11.6 L RDW 18.3 H 18.1 H MPV 7.3 L Lymph % (Auto) 14.1 L Lymph # (Auto) 1.2 L Cowley # (Auto) 1.0 H Potassium 5.2 H Chloride Carbon Dioxide BUN 25 H Creatinine 0.5 L Glucose 187 H Uric Acid 1.1 L Phosphorus 2.5 L Magnesium GGT 49 H Alkaline Phosphatase 142 H NT-Pro-B Natriuret Pep 1332.0 H Triglycerides 324 H 09/29/19 09/28/19 04:10 04:00 Hgb RDW MPV Lymph % (Auto) Lymph # (Auto) Cowley # (Auto) Potassium 5.2 H 3.0 L Chloride 92 L Carbon Dioxide 31 H 35 H BUN 22 H Creatinine 0.5 L Glucose 211 H 281 H Uric Acid 1.0 L 1.1 L Phosphorus Magnesium 2.9 H GGT Alkaline Phosphatase NT-Pro-B Natriuret Pep 3738.0 H Triglycerides 258 H 200 H Meds: Medications Acetaminophen (Tylenol) 650 mg PO Q6HP PRN PRN Reason: PAIN/FEVER > 101 Chlorhexidine Gluconate (Peridex) 15 ml SWABMOUTH BID COUNTS INCLUDE 234 BEDS AT THE [facility] Last Admin: 09/30/19 10:00 Dose: 15 ml Documented by: Dextrose (Dextrose 50%) 0 ml IV UD PRN PRN Reason: Hypoglycemia Diagnostic Test (Pha) (Accu-Chek) 1 each FS Q6 COUNTS INCLUDE 234 BEDS AT THE [facility] Last Admin: 09/30/19 05:47 Dose: 1 each Documented by: Glucose (Insta-Glucose) 15 gm PO PRN PRN PRN Reason: Hypoglycemia Heparin Sodium (Porcine) (Heparin) 5,000 unit SQ Q12 COUNTS INCLUDE 234 BEDS AT THE [facility] Last Admin: 09/30/19 10:00 Dose: 5,000 unit Documented by: Hydrocortisone Sodium Succinate (Solu-Cortef) 50 mg IV Q8 COUNTS INCLUDE 234 BEDS AT THE [facility] Last Admin: 09/30/19 05:59 Dose: 50 mg Documented by: Hydromorphone HCl (Dilaudid) 1 mg IV Q2HP PRN; Protocol PRN Reason: Per Pain Protocol Last Admin: 09/29/19 20:17 Dose: 1 mg Documented by: Heparin Sodium/Sodium Chloride (Heparin/Ns) 500 mls @ 0 mls/hr IV .Q0M COUNTS INCLUDE 234 BEDS AT THE [facility]; Protocol Piperacillin Sod/Tazobactam (Sod 3.375 gm/ Dextrose) 50 mls @ 100 mls/hr IV Q6H COUNTS INCLUDE 234 BEDS AT THE [facility]; Protocol Last Admin: 09/30/19 05:59 Dose: 100 mls/hr Documented by: Acetaminophen (Ofirmev) 1,000 mg in 100 mls @ 200 mls/hr IV Q6HP PRN; Protocol PRN Reason: PAIN/FEVER > 101 Last Admin: 09/30/19 07:41 Dose: 200 mls/hr Documented by: Propofol 1,000 mg/ Premix 100 mls @ 4.521 mls/hr IV .Q22H8M COUNTS INCLUDE 234 BEDS AT THE [facility]; Protocol Last Admin: 09/30/19 00:52 Dose: Not Given Documented by: Norepinephrine Bitartrate 16 (mg/ Sodium Chloride) 250 mls @ 9.375 mls/hr IV Q24HP PRN; Protocol PRN Reason: Hypotension Calcium Gluconate 10 meq/Magnesium Sulfate 32.48 meq/Potassium Chloride 60 meq/Potassium Phosphate 40 meq/Multivitamins/Minerals 10 ml/Selenium 60 mcg/ Sodium Chloride 20 meq/ Amino Acids 2,085.0962 mls @ 75 mls/hr IV Q24H COUNTS INCLUDE 234 BEDS AT THE [facility] Stop: 09/30/19 10:59 Last Admin: 09/29/19 12:54 Dose: 75 mls/hr Documented by: Calcium Gluconate 10 meq/Magnesium Sulfate 32.48 meq/Potassium Phosphate 60 meq/Multivitamins/Minerals 10 ml/Selenium 60 mcg/ Sodium Chloride 40 meq/ Amino Acids 2,064.6417 mls @ 75 mls/hr IV Q24H COUNTS INCLUDE 234 BEDS AT THE [facility] Insulin Human Lispro (Humalog) 0 unit SQ Q6 COUNTS INCLUDE 234 BEDS AT THE [facility]; Protocol Last Admin: 09/30/19 05:58 Dose: 6 units Documented by: Naloxone HCl (Narcan) 0.4 mg IV ONCE PRN PRN Reason: Opiate Reversal Promethazine HCl (Phenergan) 12.5 mg IV Q6HP PRN PRN Reason: Nausea And Vomiting Pyridostigmine [place] (Regonol) 10 mg SC Q6 COUNTS INCLUDE 234 BEDS AT THE [facility] Last Admin: 09/30/19 05:53 Dose: 10 mg Documented by: Sodium Chloride (Saline Flush) 10 ml IV UD PRN PRN Reason: FLUSH Last Admin: 09/30/19 04:00 Dose: 10 ml Documented by: Sodium Chloride (Saline Flush) 10 ml IV Q12 MALENA Last Admin: 09/30/19 10:01 Dose: 10 ml Documented by: Tramadol HCl (Ultram) 50 mg PO Q6HP PRN PRN Reason: Pain Last Admin: 09/30/19 10:02 Dose: 50 mg Documented by: - ABG Interpretation ABG results: 09/24/19 09/25/19 22:50 10:28 ABG Methemoglobin 0.2 L 0.3 L VBG pH 7.43 H 7.46 H VBG pCO2 37.9 L 38.0 L VBG pO2 126 H 71 H VBG HCO3 24.3 26.7 VBG Total CO2 25.5 27.8 VBG O2 Saturation 95.3 H 91.0 H VBG Base Excess 0 2.7 H Medical - PN: A/P - Time Spent With Patient Total time spent is greater than 50% in coordination of care (as documented) at patient's floor/unit and/or counseling patient: Medical - PN: Qual - VTE Deep Vein Thrombosis/Pulmonary Embolism Present on Admission: No
[2019-09-30] MEDS ORDERED: [UNRECOGNIZED DRUG - OTHER] IV SCH (11:00)
[2019-09-30] MEDS ORDERED: CALCIUM GLUCONATE IV SCH (11:00)
[2019-09-30] MEDS ORDERED: MAGNESIUM SULFATE IV SCH (11:00)
[2019-09-30] MEDS ORDERED: POTASSIUM PHOSPHATE IV SCH (11:00)
--- NOTE | 2019-09-30 17:51 | General Surgery Progress Note ---
Subjective Narrative: Note initiated : 09/30/19 at 5:50 pm Service Date, if different from initiated Date: [] Patient: Dayanna Stephens 58 y/o F admitted on 09/22/19 for NAUSEA AND VOMITING. Chief Complaint: [] Objective Temp Pulse Resp BP Pulse Ox 99.4 F H 88 21 147/83 94 09/30/19 17:01 09/30/19 16:01 09/30/19 17:01 09/30/19 17:01 09/30/19 16:01 - Additional Data Intake & Output - Last 24 hours: Intake & Output 09/28/19 09/29/19 09/30/19 10/01/19 05:59 05:59 05:59 05:59 Intake Total 3307.0708 1440 3745.5508 300 Output Total 8995 2968 2235 1032 Balance -5687.9292 -1528 1510.5508 -732 Weight 216 lb 11.2 oz 212 lb 1 oz 218 lb 11.2 oz - Labs 09/30/19 04:32 09/30/19 04:32 Diabetes panel 09/30/19 Range/Units 04:32 Sodium 136 (133-145) mmol/L Potassium 5.2 H (3.3-5.1) mmol/L Chloride 98 (96-108) mmol/L Carbon Dioxide 22 (22-30) mmol/L BUN 25 H (6-20) mg/dl Creatinine 0.5 L (0.6-1.1) mg/dl Glucose 187 H (70-105) mg/dL Calcium 9.0 (8.6-10.4) mg/dl AST 13 (0-37) U/l ALT 20 (0-40) U/l Alkaline Phosphatase 142 H (39-117) U/L Total Protein 6.6 (5.9-8.4) gm/dL Albumin 3.4 (3.2-5.2) gm/dL Triglycerides 324 H (<150) mg/dl Calcium panel 09/30/19 Range/Units 04:32 Calcium 9.0 (8.6-10.4) mg/dl Phosphorus 2.5 L (2.7-4.5) mg/dL Albumin 3.4 (3.2-5.2) gm/dL Pituitary panel 09/30/19 Range/Units 04:32 Sodium 136 (133-145) mmol/L Potassium 5.2 H (3.3-5.1) mmol/L Chloride 98 (96-108) mmol/L Carbon Dioxide 22 (22-30) mmol/L BUN 25 H (6-20) mg/dl Creatinine 0.5 L (0.6-1.1) mg/dl Glucose 187 H (70-105) mg/dL Calcium 9.0 (8.6-10.4) mg/dl Adrenal panel 09/30/19 Range/Units 04:32 Sodium 136 (133-145) mmol/L Potassium 5.2 H (3.3-5.1) mmol/L Chloride 98 (96-108) mmol/L Carbon Dioxide 22 (22-30) mmol/L BUN 25 H (6-20) mg/dl Creatinine 0.5 L (0.6-1.1) mg/dl Glucose 187 H (70-105) mg/dL Calcium 9.0 (8.6-10.4) mg/dl Total Bilirubin 0.2 (0.0-1.0) mg/dL AST 13 (0-37) U/l ALT 20 (0-40) U/l Alkaline Phosphatase 142 H (39-117) U/L Total Protein 6.6 (5.9-8.4) gm/dL Albumin 3.4 (3.2-5.2) gm/dL Assessment and Plan (1) Acute respiratory insufficiency Status: Resolved Assessment and plan: We will continue ventilatory support Patient is probably stable for weaning and extubation but will Defer to the discretion of the hospitalist plan follow-up chest x-ray in the morning Current Visit: Yes (2) Chronic intestinal pseudo-obstruction Status: Chronic Assessment and plan: Patient has good output through her stoma and she does not have any significant distention Current Visit: Yes (3) Chronic use of steroids Problem details: for myasthenia gravis; 10+ years Status: Chronic Assessment and plan: Solu-Medrol 62 mg IV every 12 hours Current Visit: No (4) Hypertension Status: Chronic Current Visit: No (5) Myasthenia gravis Status: Chronic Current Visit: No (6) LA (obstructive sleep apnea) Status: Chronic Current Visit: No (7) Obesity, Class II, BMI 35-39.9 Status: Chronic Current Visit: No - Time Spent With Patient Total time spent is greater than 50% in coordination of care (as documented) at patient's floor/unit and/or counseling patient:
[2019-09-30] MEDS ORDERED: HEPARIN SODIUM,PORCINE/PF 500 UNIT/5 ML SYRINGE IV ONE ×2 (22:48→23:23)
[2019-10-01] MEDS: traMADol 50 MG TABLET PO PRN ×2 (02:03→18:43)
[2019-10-01] MEDS: PROPOFOL 1,000 MG in PREMIX 1 BAG IV SCH (03:15)
[2019-10-01] MEDS: ACETAMINOPHEN 1,000 MG/100 ML BOTTLE IV PRN (04:34)
[2019-10-01] MEDS: 0.9 % SODIUM CHLORIDE 10 ML SYRINGE IV PRN (04:35)
[2019-10-01] MEDS: PIPERACILLIN SODIUM/TAZOBACTAM 3.375 GM in DEXTROSE 5% IN WATER 50 ML IV SCH ×3 (05:51→17:54)
[2019-10-01] MEDS: INSULIN LISPRO 1 UNIT/0.01 ML UNIT SQ SCH ×3 (05:51→17:55)
[2019-10-01] MEDS: HYDROCORTISONE SOD SUCC 100 MG VIAL IV SCH ×3 (05:52→22:07)
[2019-10-01] MEDS: PYRIDOSTIGMINE BROMIDE 10 MG/2 ML ML SC SCH ×4 (05:53→23:52)
[2019-10-01 05:59] LABS: Basophils # (Auto) 0 K/mcL (0.0-0.3); Basophils % (Auto) 0.1 % (0.0-2.0); Eosinophils # (Auto) 0 K/mcL (0.0-0.7); Eosinophils % (Auto) 0.3 % (0.0-7.0); Granulocytes % (Auto) 75.4 % (38.0-78.0); Hemoglobin 11.1 g/dL (12.0-15.0); Lymphocytes # (Auto) 1.6 K/mcL (1.5-4.8); Lymphocytes % (Auto) 16.4 % (15.5-49.0); Mean Cell Volume 85.8 fL (80.0-100.0); Mean Corpuscular HGB Conc 31.7 g/dL (31.0-36.0); Mean Platelet Volume 7.6 fL (7.4-10.4); Monocytes # (Auto) 0.7 K/mcL (0.1-0.9); Monocytes % (Auto) 7.8 % (1.0-12.0); Platelet Count 349 K/mcL (140-440); RBC 4.08 M/mcL (4.00-5.20); WBC 9.6 K/mcL (4.5-11.0)
[2019-10-01 06:37] LABS: ALT/SGPT 31 U/l (0-40); AST/SGOT 16 U/l (0-37); Albumin 3.4 gm/dL (3.2-5.2); Albumin/Globulin Ratio 1.2 (1.0-2.3); Alkaline Phosphatase 179 U/L (39-117); Bilirubin,Direct < 0.2 mg/dL (0.0-0.3); Bilirubin,Total < 0.2 mg/dL (0.0-1.0); Blood Urea Nitrogen 26 mg/dl (6-20); Calcium 8.3 mg/dl (8.6-10.4); Carbon Dioxide 23 mmol/L (22-30); Chloride 99 mmol/L (96-108); Globulin 2.9 gm/dL (2.2-3.7); Glomerular Filtration Rate 107; Glucose 228 mg/dL (70-105); Lactate Dehydrogenase 283 U/L (94-250); Uric Acid 1.2 mg/dL (2.5-8.0)
[2019-10-01 06:38] LABS: Triglycerides 392 mg/dl (<150)
[2019-10-01] MEDS: 0.9 % SODIUM CHLORIDE 10 ML SYRINGE IV SCH ×2 (09:33→22:07)
--- NOTE | 2019-10-01 09:33 | XRay Report ---
CLINICAL INFORMATION: FOR F/U OF ILEUS COMPARISON: 09/28/2019 FINDINGS: The GI tract is decompressed with only minimal gas seen in the stomach and residual bowel. No free air, soft tissue mass or organomegaly IMPRESSION: Decompressed GI tract Interpreted and Authenticated by: All Lundberg 10/01/19
[2019-10-01] MEDS ORDERED: 0.9 % SODIUM CHLORIDE 10 ML SYRINGE IV PRN (09:38)
[2019-10-01] MEDS ORDERED: PROMETHAZINE 25 MG/ML VIAL IV PRN (09:38)
[2019-10-01] MEDS: HEPARIN 5,000 UNIT/ML VIAL SQ SCH ×2 (09:38→22:06)
[2019-10-01] MEDS ORDERED: DEXTROSE 31 GM ORAL.SUSP PO PRN (09:38)
[2019-10-01] MEDS ORDERED: NALOXONE HCL 0.4 MG/ML VIAL IV PRN (09:38)
[2019-10-01] MEDS ORDERED: DEXTROSE 50% 50 ML VIAL IV PRN (09:38)
[2019-10-01] MEDS ORDERED: TPN PER PHARMACY IV SCH (09:38)
[2019-10-01] MEDS ORDERED: POTASSIUM PHOSPHATE IV SCH ×2 (10:00→11:00)
[2019-10-01] MEDS ORDERED: MAGNESIUM SULFATE IV SCH ×2 (10:00→11:00)
[2019-10-01] MEDS ORDERED: [UNRECOGNIZED DRUG - OTHER] IV SCH (10:00)
[2019-10-01] MEDS ORDERED: CALCIUM GLUCONATE IV SCH ×2 (10:00→11:00)
[2019-10-01] MEDS ORDERED: [UNRECOGNIZED DRUG - OTHER] IV SCH (11:00)
[2019-10-01] MEDS: INSULIN GLARGINE, HUMAN 1 UNIT/0.01 ML SQ SCH (11:42)
--- NOTE | 2019-10-01 15:43 | General Surgery Progress Note ---
Subjective Patient reports: feels better, pain is less, tolerating a regular diet, flatus, bowel movement, diarrhea Narrative: Note initiated : 10/01/19 at 3:40 pm Service Date, if different from initiated Date: [] Patient: Dayanna Stephens 58 y/o F admitted on 09/22/19 for NAUSEA AND VOMITING. Chief Complaint: [] Objective Temp Pulse Resp BP Pulse Ox 97.9 F 87 18 185/99 95 10/01/19 13:35 10/01/19 13:35 10/01/19 13:35 10/01/19 13:35 10/01/19 13:35 - Additional Data Intake & Output - Last 24 hours: Intake & Output 09/29/19 09/30/19 10/01/19 10/02/19 05:59 05:59 05:59 05:59 Intake Total 1440 3745.5508 1060 340 Output Total 2968 2235 3242 575 Balance -1528 1510.5508 -2182 -235 Weight 212 lb 1 oz 218 lb 11.2 oz 226 lb - General physical appearance well developed, well nourished, no distress, no pain, chronically ill - Eyes PERRL, normal ocular movement - ENT normal pinna, normal nares, normal mucosa, no hearing loss, no congestion - Neck no masses, no bruits, trachea midline, no lymphadenopathy, no venous distension - Respiratory normal expansion, normal respiratory effort, clear to auscultation - Cardiovascular Cardiovascular exam: Present: normal rate and rhythm, RRR, +S1, +S2. Absent: JVD, tachycardia - Abdomen non tender, bowel sounds (present), surgical scars (none), wound (stoma is fu nctioning normally), masses (none) - Integumentary no rash, no growths, no abnormal pigmentation - Neurologic normal coordination, normal sensation - Musculoskeletal normal gait, normal posture - Psychiatric oriented to time, oriented to person, oriented to place, speech is normal, memory intact - Labs 10/01/19 03:49 10/01/19 03:49 Diabetes panel 10/01/19 Range/Units 03:49 Sodium 137 (133-145) mmol/L Potassium 4.4 (3.3-5.1) mmol/L Chloride 99 (96-108) mmol/L Carbon Dioxide 23 (22-30) mmol/L BUN 26 H (6-20) mg/dl Creatinine 0.5 L (0.6-1.1) mg/dl Glucose 228 H (70-105) mg/dL Calcium 8.3 L (8.6-10.4) mg/dl AST 16 (0-37) U/l ALT 31 (0-40) U/l Alkaline Phosphatase 179 H (39-117) U/L Total Protein 6.3 (5.9-8.4) gm/dL Albumin 3.4 (3.2-5.2) gm/dL Triglycerides 392 H (<150) mg/dl Calcium panel 10/01/19 Range/Units 03:49 Calcium 8.3 L (8.6-10.4) mg/dl Phosphorus 3.0 (2.7-4.5) mg/dL Albumin 3.4 (3.2-5.2) gm/dL Pituitary panel 10/01/19 Range/Units 03:49 Sodium 137 (133-145) mmol/L Potassium 4.4 (3.3-5.1) mmol/L Chloride 99 (96-108) mmol/L Carbon Dioxide 23 (22-30) mmol/L BUN 26 H (6-20) mg/dl Creatinine 0.5 L (0.6-1.1) mg/dl Glucose 228 H (70-105) mg/dL Calcium 8.3 L (8.6-10.4) mg/dl Adrenal panel 10/01/19 Range/Units 03:49 Sodium 137 (133-145) mmol/L Potassium 4.4 (3.3-5.1) mmol/L Chloride 99 (96-108) mmol/L Carbon Dioxide 23 (22-30) mmol/L BUN 26 H (6-20) mg/dl Creatinine 0.5 L (0.6-1.1) mg/dl Glucose 228 H (70-105) mg/dL Calcium 8.3 L (8.6-10.4) mg/dl Total Bilirubin < 0.2 (0.0-1.0) mg/dL AST 16 (0-37) U/l ALT 31 (0-40) U/l Alkaline Phosphatase 179 H (39-117) U/L Total Protein 6.3 (5.9-8.4) gm/dL Albumin 3.4 (3.2-5.2) gm/dL Assessment and Plan (1) Acute respiratory insufficiency Status: Resolved Assessment and plan: RESPIRATORY STATUS IS STABLE Current Visit: Yes (2) Chronic intestinal pseudo-obstruction Status: Chronic Assessment and plan: Patient has good output through her stoma and she does not have any significant distention ABDOMINAL X-RAYS ARE NORMAL Current Visit: Yes (3) Chronic use of steroids Problem details: for myasthenia gravis; 10+ years Status: Chronic Assessment and plan: Solu-Medrol 62 mg IV every 12 hours Current Visit: No (4) Hypertension Status: Chronic Current Visit: No (5) Myasthenia gravis Status: Chronic Current Visit: No (6) LA (obstructive sleep apnea) Status: Chronic Current Visit: No (7) Obesity, Class II, BMI 35-39.9 Status: Chronic Current Visit: No - Time Spent With Patient Total time spent is greater than 50% in coordination of care (as documented) at patient's floor/unit and/or counseling patient:
--- NOTE | 2019-10-01 21:30 | Internal Med Progress Note ---
Medical - PN: Subj Patient information: Note initiated : 10/01/19 at 9:28 pm Service Date, if different from initiated Date: [] Patient: Dayanna Stephens a 58 y/o F admitted on 09/22/19 for NAUSEA AND VOMITING. Chief Complaint: [] Ms. Stephens is a 58 yof with a medical history of chronic hypocalcemia, polyglandular syndrome, sarcoidosis, myasthenia gravis and multiple bowel obstruction/abdominal surgeries with colostomy who was recently hospitalized at [facility] due to a bowel obstruction and underwent surgery x 2 between August 16 in September 21. Due to worsening abdominal pain and nausea vomiting she was admitted on 09/23 under surgical service for management of bowel obstruction. The patient no longer has fever and feels fine. Denies headache, dizziness, fever, or chills. Patient has a good output through her stoma. AXR - Decompressed GI tract. - Constitutional Vitals: Vital Signs Temp Pulse Resp BP Pulse Ox 97.9 F 100 H 16 164/99 94 10/01/19 20:28 10/01/19 20:28 10/01/19 20:28 10/01/19 20:28 10/01/19 20:28 Period Temp Pulse Resp BP Sys/Archuleta Pulse Ox Last 24 Hr 97.9 F-99.3 F 72-107 16-27 139-185/79-124 92-98 Intake and Output 10/01/19 10/01/19 10/01/19 05:59 13:59 21:59 Intake Total 250 340 Output Total 1360 575 825 Balance -1110 -235 -825 Weight 103.646 kg Patient Weight 10/02/19 05:59 Weight 103.646 kg Intake & Output: Intake & Output 10/01/19 10/01/19 10/01/19 05:59 13:59 21:59 Intake Total 250 340 Output Total 1360 575 825 Balance -1110 -235 -825 Weight 103.646 kg Intake: IV 250 100 Zosyn 3.375 gm In Dextrose 5% 50 100 in Water 50 ml @ 100 mls/hr IV Q6H [facility] Rx#:[id number] Oral 240 Output: Urine Catheter Amount 1160 280 Void Amount 45 375 Stool 200 250 450 Other: Meal Breakfast Percent of Meal Consumed 100% Feeding Ability Independent Urine Appearance Clear Clear Uretheral (Martinez) Clear Clear Clear Urine Color Pale Pale Uretheral (Martinez) Pale Pale Dark Yellow Urine Odor Normal Normal Uretheral (Martinez) Normal Stool Size Small Moderate Stool Color Brown Brown Yellow Yellow Green Green Stool Consistency Liquid Liquid Watery General appearance: no acute distress - Head Head exam: Present: atraumatic, normocephalic - Eye Eye exam: Present: EOMI, PERRL - ENT ENT exam: Present: normal exam - Respiratory Respiratory exam: Present: decreased breath sounds, prolonged expiratory phase - Cardiovascular Cardiovascular exam: Present: normal rate and rhythm. Absent: JVD - GI/Abdominal GI/Abdominal exam: Present: normal bowel sounds, soft, distended - Extremities Exam Extremities exam: Absent: Justin's sign - Neurological Exam Neurological exam: Present: alert. Absent: motor sensory deficit - Psychiatric Psychiatric exam: Present: normal affect, normal mood Medical - PN: Obj Da - Labs CBC & Chem 7: 10/01/19 03:49 10/01/19 03:49 Labs: Abnormal Lab Results 10/01/19 10/01/19 09/30/19 03:49 03:49 04:32 Hgb 11.1 L 11.9 L Hct 35.0 L RDW 18.0 H 18.3 H MPV Lymph % (Auto) Lymph # (Auto) [place] # (Auto) 1.0 H Potassium Carbon Dioxide BUN 26 H Creatinine 0.5 L Glucose 228 H Uric Acid 1.2 L Calcium 8.3 L Phosphorus GGT 90 H Alkaline Phosphatase 179 H Lactate Dehydrogenase 283 H NT-Pro-B Natriuret Pep Triglycerides 392 H 09/30/19 09/29/19 09/29/19 04:32 04:10 04:10 Hgb 11.6 L Hct RDW 18.1 H MPV 7.3 L Lymph % (Auto) 14.1 L Lymph # (Auto) 1.2 L [place] # (Auto) Potassium 5.2 H 5.2 H Carbon Dioxide 31 H BUN 25 H 22 H Creatinine 0.5 L 0.5 L Glucose 187 H 211 H Uric Acid 1.1 L 1.0 L Calcium Phosphorus 2.5 L GGT 49 H Alkaline Phosphatase 142 H Lactate Dehydrogenase NT-Pro-B Natriuret Pep 1332.0 H Triglycerides 324 H 258 H Meds: Medications Acetaminophen (Tylenol) 650 mg PO Q6HP PRN PRN Reason: PAIN/FEVER > 101 Dextrose (Dextrose 50%) 0 ml IV UD PRN PRN Reason: Hypoglycemia Diagnostic Test (Pha) (Accu-Chek) 1 each FS Q6 [facility] Last Admin: 10/01/19 17:55 Dose: 1 each Documented by: Glucose (Insta-Glucose) 15 gm PO PRN PRN PRN Reason: Hypoglycemia Heparin Sodium (Porcine) (Heparin) 5,000 unit SQ Q12 [facility] Hydrocortisone Sodium Succinate (Solu-Cortef) 50 mg IV Q8 [facility] Last Admin: 10/01/19 14:58 Dose: 50 mg Documented by: Hydromorphone HCl (Dilaudid) 1 mg IV Q4HP PRN; Protocol PRN Reason: Per Pain Protocol Calcium Gluconate 20 meq/Magnesium Sulfate 32.48 meq/Potassium Phosphate 60 meq/Multivitamins/Minerals 10 ml/Selenium 60 mcg/ Sodium Chloride 40 meq/ Amino Acids 2,086.1471 mls @ 75 mls/hr IV Q24H [facility] Last Admin: 10/01/19 11:24 Dose: 75 mls/hr Documented by: Piperacillin Sod/Tazobactam (Sod 3.375 gm/ Dextrose) 50 mls @ 100 mls/hr IV Q6H [facility]; Protocol Last Admin: 10/01/19 17:54 Dose: 100 mls/hr Documented by: Insulin Glargine (Lantus) 5 unit SQ DAILY [facility] Last Admin: 10/01/19 11:42 Dose: 5 unit Documented by: Insulin Human Lispro (Humalog) 0 unit SQ Q6 [facility]; Protocol Last Admin: 10/01/19 17:55 Dose: 9 unit Documented by: Naloxone HCl (Narcan) 0.4 mg IV ONCE PRN PRN Reason: Opiate Reversal Promethazine HCl (Phenergan) 12.5 mg IV Q6HP PRN PRN Reason: Nausea And Vomiting Pyridostigmine [place] (Regonol) 10 mg SC Q6 [facility] Last Admin: 10/01/19 17:55 Dose: 10 mg Documented by: Sodium Chloride (Saline Flush) 10 ml IV UD PRN PRN Reason: FLUSH Sodium Chloride (Saline Flush) 10 ml IV Q12 [facility] Tramadol HCl (Ultram) 50 mg PO Q6HP PRN PRN Reason: Pain Last Admin: 10/01/19 18:43 Dose: 50 mg Documented by: - ABG Interpretation ABG results: 09/24/19 09/25/19 22:50 10:28 ABG Methemoglobin 0.2 L 0.3 L VBG pH 7.43 H 7.46 H VBG pCO2 37.9 L 38.0 L VBG pO2 126 H 71 H VBG HCO3 24.3 26.7 VBG Total CO2 25.5 27.8 VBG O2 Saturation 95.3 H 91.0 H VBG Base Excess 0 2.7 H Medical - PN: A/P - Time Spent With Patient Total time spent is greater than 50% in coordination of care (as documented) at patient's floor/unit and/or counseling patient: - Narrative A/P Narrative: A/P Narrative: 1. Acute hypoxic respiratory failure, s/p extubation on Probably aspiration pneumonia trying to wean off the oxygen Continue Zosyn for aspiration pneumonia and can change to Augmentin for total 10 days upon discharge 2. ARDS-acute lung injury Probably due to aspiration Improved 3. Septic shock secondary to aspiration pneumonia, resolved 4. Hypokalemia hypomagnesemia Replacement ordered 5. Acute renal failure due to septic shock-resolved 6. Type 2 diabetes Continue sliding scale insulin 7. Other chronic or stable problems: Morbid obesity BMI over 40 Continue nutrition support and decubitus ulcer precautions History of panhypopituitarism Continue stress dose of hydrocortisone and IV thyroxine History of myasthenia gravis Continue pyridostigmine DVT prophylaxis-subcu heparin CODE STATUS-full code Nutrition-diet can be advanced as per surgical recommendation and she is also on TPN which can be stopped when she is able to take regular diet Medical - PN: Qual - VTE Deep Vein Thrombosis/Pulmonary Embolism Present on Admission: No
[2019-10-02] MEDS: HYDROmorphone 2 MG/ML VIAL IV PRN ×5 (00:01→21:48)
[2019-10-02] MEDS: PIPERACILLIN SODIUM/TAZOBACTAM 3.375 GM in DEXTROSE 5% IN WATER 50 ML IV SCH ×3 (00:02→12:06)
[2019-10-02] MEDS: PYRIDOSTIGMINE BROMIDE 10 MG/2 ML ML SC SCH ×3 (05:24→17:35)
[2019-10-02] MEDS: HYDROCORTISONE SOD SUCC 100 MG VIAL IV SCH (05:24)
[2019-10-02] MEDS: INSULIN LISPRO 1 UNIT/0.01 ML UNIT SQ SCH ×4 (06:01→17:35)
[2019-10-02 06:25] LABS: Basophils # (Auto) 0 K/mcL (0.0-0.3); Basophils % (Auto) 0.2 % (0.0-2.0); Eosinophils # (Auto) 0 K/mcL (0.0-0.7); Eosinophils % (Auto) 0.3 % (0.0-7.0); Granulocytes % (Auto) 79.4 % (38.0-78.0); Hematocrit 34.7 % (36.0-48.0); Hemoglobin 11.1 g/dL (12.0-15.0); Lymphocytes # (Auto) 1.7 K/mcL (1.5-4.8); Lymphocytes % (Auto) 14.3 % (15.5-49.0); Mean Cell Volume 84.8 fL (80.0-100.0); Mean Platelet Volume 7.5 fL (7.4-10.4); Monocytes # (Auto) 0.7 K/mcL (0.1-0.9); Monocytes % (Auto) 5.8 % (1.0-12.0); Platelet Count 374 K/mcL (140-440); RBC 4.09 M/mcL (4.00-5.20); Red Cell Distribution Width 18.2 % (11.5-14.5); WBC 11.5 K/mcL (4.5-11.0)
[2019-10-02 07:16] LABS: ALT/SGPT 43 U/l (0-40); AST/SGOT 22 U/l (0-37); Albumin 3.4 gm/dL (3.2-5.2); Albumin/Globulin Ratio 1.2 (1.0-2.3); Alkaline Phosphatase 197 U/L (39-117); Bilirubin,Direct < 0.2 mg/dL (0.0-0.3); Bilirubin,Total < 0.2 mg/dL (0.0-1.0); Blood Urea Nitrogen 30 mg/dl (6-20); Calcium 7.9 mg/dl (8.6-10.4); Carbon Dioxide 22 mmol/L (22-30); Chloride 100 mmol/L (96-108); Globulin 2.8 gm/dL (2.2-3.7); Glomerular Filtration Rate 107; Glucose 172 mg/dL (70-105); Lactate Dehydrogenase 235 U/L (94-250); Phosphorous 3.2 mg/dL (2.7-4.5)
[2019-10-02 07:49] LABS: Triglycerides 469 mg/dl (<150); Uric Acid 1.5 mg/dL (2.5-8.0)
[2019-10-02] MEDS: HEPARIN 5,000 UNIT/ML VIAL SQ SCH ×2 (09:28→21:40)
[2019-10-02] MEDS: INSULIN GLARGINE, HUMAN 1 UNIT/0.01 ML SQ SCH (09:28)
[2019-10-02] MEDS: 0.9 % SODIUM CHLORIDE 10 ML SYRINGE IV SCH ×2 (09:37→23:40)
--- NOTE | 2019-10-02 10:48 | XRay Report ---
CLINICAL INFORMATION: dark-brownish sputum COMPARISON: 09/29/2019 FINDINGS: Heart size, mediastinum and pulmonary vessels are normal. Left clavian Port-A-Cath and right subclavian central line is stable satisfactory position. Minimal bibasilar airspace disease likely represents atelectasis. It has improved from exam three days ago. Right diaphragm is chronically elevated IMPRESSION: Mild bibasilar airspace disease more likely atelectasis than infiltrate. Improvement from plain film three days ago Interpreted and Authenticated by: All Lundberg 10/02/19
[2019-10-02] MEDS ORDERED: [UNRECOGNIZED DRUG - OTHER] IV SCH (11:00)
[2019-10-02] MEDS ORDERED: POTASSIUM PHOSPHATE IV SCH (11:00)
[2019-10-02] MEDS ORDERED: MAGNESIUM SULFATE IV SCH (11:00)
[2019-10-02] MEDS ORDERED: CALCIUM GLUCONATE IV SCH (11:00)
[2019-10-02] MEDS: traMADol 50 MG TABLET PO PRN (12:08)
--- NOTE | 2019-10-02 13:19 | General Surgery Progress Note ---
Subjective Patient reports: feels better, pain is less, tolerating a regular diet, flatus, bowel movement, diarrhea, afebrile Narrative: Note initiated : 10/02/19 at 1:19 pm Service Date, if different from initiated Date: [] Patient: Dayanna Stephens 58 y/o F admitted on 09/22/19 for NAUSEA AND VOMITING. Chief Complaint: [Patient is stable and improved. She is tolerating diet without difficulty. Her general strength is physical therapy. She has been afebrile over 36 hours. There is a slight increase in her white blood count 11.5 today, but is normal. Chest x-ray shows decreased and basilar atelectasis. Her urinary catheter has remained in place because she is unable to get up independently to urinate. Hopefully, this can be discontinued within the next 24. Potassium 4.3, BUN 30, Premarin 0.5, calcium 7.9, and hemoglobin 11.1, hematocrit 34.7.] Objective Temp Pulse Resp BP Pulse Ox 97.0 F 69 16 189/93 96 10/02/19 08:51 10/02/19 08:51 10/02/19 08:51 10/02/19 08:51 10/02/19 08:51 - Additional Data Intake & Output - Last 24 hours: Intake & Output 09/30/19 10/01/19 10/02/19 10/03/19 05:59 05:59 05:59 05:59 Intake Total 3745.5508 5115 098 7878 Output Total 2235 3242 2800 450 Balance 1510.5508 -2182 -2310 1618 Weight 218 lb 11.2 oz 226 lb 228 lb 8 oz 228 lb 8 oz - General physical appearance well developed, well nourished, no distress, chronically ill, obese - Eyes PERRL, normal ocular movement - ENT normal pinna, normal nares, normal mucosa, no hearing loss, no congestion - Neck no masses, no bruits, trachea midline, no lymphadenopathy, no venous distension - Respiratory normal expansion, normal respiratory effort, clear to auscultation, other (bilateral breast) - Cardiovascular Cardiovascular exam: Present: normal rate and rhythm, RRR, +S1, +S2. Absent: JVD, tachycardia - Abdomen non tender, bowel sounds (present), surgical scars (none), masses (none) - Integumentary no rash, no growths, no abnormal pigmentation - Neurologic normal coordination, normal sensation - Musculoskeletal other (patient needs standby assistance but is stronger than yesterday) - Psychiatric oriented to time, oriented to person, oriented to place, speech is normal, memory intact - Labs 10/02/19 04:50 10/02/19 04:50 Diabetes panel 10/02/19 Range/Units 04:50 Sodium 137 (133-145) mmol/L Potassium 4.3 (3.3-5.1) mmol/L Chloride 100 (96-108) mmol/L Carbon Dioxide 22 (22-30) mmol/L BUN 30 H (6-20) mg/dl Creatinine 0.5 L (0.6-1.1) mg/dl Glucose 172 H (70-105) mg/dL Calcium 7.9 L (8.6-10.4) mg/dl AST 22 (0-37) U/l ALT 43 H (0-40) U/l Alkaline Phosphatase 197 H (39-117) U/L Total Protein 6.2 (5.9-8.4) gm/dL Albumin 3.4 (3.2-5.2) gm/dL Triglycerides 469 H (<150) mg/dl Calcium panel 10/02/19 Range/Units 04:50 Calcium 7.9 L (8.6-10.4) mg/dl Phosphorus 3.2 (2.7-4.5) mg/dL Albumin 3.4 (3.2-5.2) gm/dL Pituitary panel 10/02/19 Range/Units 04:50 Sodium 137 (133-145) mmol/L Potassium 4.3 (3.3-5.1) mmol/L Chloride 100 (96-108) mmol/L Carbon Dioxide 22 (22-30) mmol/L BUN 30 H (6-20) mg/dl Creatinine 0.5 L (0.6-1.1) mg/dl Glucose 172 H (70-105) mg/dL Calcium 7.9 L (8.6-10.4) mg/dl Adrenal panel 10/02/19 Range/Units 04:50 Sodium 137 (133-145) mmol/L Potassium 4.3 (3.3-5.1) mmol/L Chloride 100 (96-108) mmol/L Carbon Dioxide 22 (22-30) mmol/L BUN 30 H (6-20) mg/dl Creatinine 0.5 L (0.6-1.1) mg/dl Glucose 172 H (70-105) mg/dL Calcium 7.9 L (8.6-10.4) mg/dl Total Bilirubin < 0.2 (0.0-1.0) mg/dL AST 22 (0-37) U/l ALT 43 H (0-40) U/l Alkaline Phosphatase 197 H (39-117) U/L Total Protein 6.2 (5.9-8.4) gm/dL Albumin 3.4 (3.2-5.2) gm/dL Assessment and Plan (1) Acute respiratory insufficiency Status: Resolved Assessment and plan: RESPIRATORY STATUS IS STABLE Current Visit: Yes (2) Chronic intestinal pseudo-obstruction Status: Chronic Assessment and plan: Patient has good output through her stoma and she does not have any significant distention ABDOMINAL X-RAYS ARE NORMAL Current Visit: Yes (3) Chronic use of steroids Problem details: for myasthenia gravis; 10+ years Status: Chronic Assessment and plan: Will switch back to hold prednisone Current Visit: No (4) Hypertension Status: Chronic Assessment and plan: We will start on oral medications as needed Current Visit: No (5) Myasthenia gravis Status: Chronic Current Visit: No (6) LA (obstructive sleep apnea) Status: Chronic Current Visit: No (7) Obesity, Class II, BMI 35-39.9 Status: Chronic Current Visit: No - Time Spent With Patient Total time spent is greater than 50% in coordination of care (as documented) at patient's floor/unit and/or counseling patient:
[2019-10-02] MEDS: CALCITRIOL 0.25 MCG CAPSULE PO SCH ×2 (15:48→21:40)
[2019-10-02] MEDS: CYCLOBENZAPRINE 10 MG TABLET PO SCH ×2 (15:49→21:40)
--- NOTE | 2019-10-02 20:28 | Internal Med Progress Note ---
Medical - PN: Subj Patient information: Note initiated : 10/02/19 at 8:25 pm Service Date, if different from initiated Date: [] Patient: Dayanna Stephens a 58 y/o F admitted on 09/22/19 for NAUSEA AND VOMITING. Chief Complaint: [] Ms. Stephens is a 58 yof with a medical history of chronic hypocalcemia, polyglandular syndrome, sarcoidosis, myasthenia gravis and multiple bowel obstruction/abdominal surgeries with colostomy who was recently hospitalized at [facility] due to a bowel obstruction and underwent surgery x 2 between August 16 in September 21. Due to worsening abdominal pain and nausea vomiting she was admitted on 09/23 under surgical service for management of bowel obstruction. The patient no longer has fever and feels fine. Denies headache, dizziness, fever, or chills. Patient has a good output through her stoma. But this morning she complains of dark-brownish sputum No overnight events - Constitutional Vitals: Vital Signs Temp Pulse Resp BP Pulse Ox 98.3 F 96 H 18 145/87 95 10/02/19 19:38 10/02/19 19:38 10/02/19 19:38 10/02/19 19:38 10/02/19 19:38 Period Temp Pulse Resp BP Sys/Archuleta Pulse Ox Last 24 Hr 97.0 F-98.3 F 64-100 16-18 145-189/78-109 94-96 Intake and Output 10/02/19 10/02/19 10/02/19 05:59 13:59 21:59 Intake Total 100 2868 600 Output Total 1400 450 600 Balance -1300 2418 0 Weight 103.646 kg 103.419 kg Patient Weight 10/03/19 05:59 Weight 103.419 kg Intake & Output: Intake & Output 10/02/19 10/02/19 10/02/19 05:59 13:59 21:59 Intake Total 100 2868 600 Output Total 1400 450 600 Balance -1300 2418 0 Weight 103.646 kg 103.419 kg Intake: Nourishment/Supplement quantity 90 (ml) IV 100 1977 Calcium Gluconate 40 Meq 192 Magnesium Sulfate 32.48 Meq Potassium Phosphate 60 Meq Infuvite Adult 10 ml Selenium 60 Mcg Sodium Chloride 40 Meq In Clinimix 5%-20% Solution 2, 000 ml @ 75 mls/hr IV Q24H [facility] Rx#:[id number] Zosyn 3.375 gm In Dextrose 5% 100 50 in Water 50 ml @ 100 mls/hr IV Q6H [facility] Rx#:[id number] Oral 800 600 Output: Urine Catheter Amount 1150 600 Stool 250 450 Other: Meal Breakfast Percent of Meal Consumed 75% Feeding Ability Independent Nourishment/Supplement name Glucerna Urine Appearance Clear Uretheral (Martinez) Clear Urine Color Bright Yellow Uretheral (Martinez) Bright Yellow Urine Odor Strong Uretheral (Martinez) Normal Stool Size Moderate Stool Color Brown Yellow Stool Consistency Liquid Watery General appearance: no acute distress - Head Head exam: Present: atraumatic, normocephalic - Eye Eye exam: Present: EOMI, PERRL - ENT ENT exam: Present: normal exam - Neck Neck exam: Present: normal inspection - Respiratory Respiratory exam: Present: normal respiratory exam, CTAB - Cardiovascular Cardiovascular exam: Present: normal rate and rhythm, RRR - GI/Abdominal GI/Abdominal exam: Present: normal bowel sounds (liquid fecal matter in colostomy bag), soft - Extremities Exam Extremities exam: Present: normal inspection. Absent: pedal edema, tenderness - Neurological Exam Neurological exam: Present: alert, CN II-XII intact, oriented X3, reflexes normal - Psychiatric Psychiatric exam: Present: normal mood - Skin Skin exam: Present: warm Medical - PN: Obj Da - Labs CBC & Chem 7: 10/02/19 04:50 10/02/19 04:50 Labs: Abnormal Lab Results 10/02/19 10/02/19 10/01/19 04:50 04:50 03:49 WBC 11.5 H Hgb 11.1 L 11.1 L Hct 34.7 L 35.0 L RDW 18.2 H 18.0 H Gran % 79.4 H Lymph % (Auto) 14.3 L Gran # 9.2 H [place] # (Auto) Potassium BUN 30 H Creatinine 0.5 L Glucose 172 H Uric Acid 1.5 L Calcium 7.9 L Phosphorus GGT 112 H ALT 43 H Alkaline Phosphatase 197 H Lactate Dehydrogenase NT-Pro-B Natriuret Pep Triglycerides 469 H 10/01/19 09/30/19 09/30/19 03:49 04:32 04:32 WBC Hgb 11.9 L Hct RDW 18.3 H Gran % Lymph % (Auto) Gran # [place] # (Auto) 1.0 H Potassium 5.2 H BUN 26 H 25 H Creatinine 0.5 L 0.5 L Glucose 228 H 187 H Uric Acid 1.2 L 1.1 L Calcium 8.3 L Phosphorus 2.5 L GGT 90 H 49 H ALT Alkaline Phosphatase 179 H 142 H Lactate Dehydrogenase 283 H NT-Pro-B Natriuret Pep 1332.0 H Triglycerides 392 H 324 H Meds: Medications Acetaminophen (Tylenol) 650 mg PO Q6HP PRN PRN Reason: PAIN/FEVER > 101 Calcitriol (Rocaltrol) 0.25 mcg PO TID [facility] Last Admin: 10/02/19 15:48 Dose: 0.25 mcg Documented by: Calcium Carbonate/Glycine (Calcium Carbonate) 1,200 mg PO BID [facility] Cyclobenzaprine HCl (Flexeril) 10 mg PO TID [facility] Last Admin: 10/02/19 15:49 Dose: 10 mg Documented by: Dextrose (Dextrose 50%) 0 ml IV UD PRN PRN Reason: Hypoglycemia Diagnostic Test (Pha) (Accu-Chek) 1 each FS ACHS [facility] Last Admin: 10/02/19 17:34 Dose: 1 each Documented by: Duloxetine HCl (Cymbalta) 30 mg PO BID [facility] Glucose (Insta-Glucose) 15 gm PO PRN PRN PRN Reason: Hypoglycemia Heparin Sodium (Porcine) (Heparin) 5,000 unit SQ Q12 [facility] Last Admin: 10/02/19 09:28 Dose: 5,000 unit Documented by: Hydromorphone HCl (Dilaudid) 1 mg IV Q4HP PRN; Protocol PRN Reason: Per Pain Protocol Last Admin: 10/02/19 17:36 Dose: 1 mg Documented by: Calcium Gluconate 40 meq/Magnesium Sulfate 32.48 meq/Potassium Phosphate 60 meq/Multivitamins/Minerals 10 ml/Selenium 60 mcg/ Sodium Chloride 40 meq/ Amino Acids 2,129.1579 mls @ 75 mls/hr IV Q24H [facility] Stop: 10/03/19 01:00 Last Infusion: 10/02/19 13:06 Dose: 40 mls/hr Documented by: Insulin Glargine (Lantus) 5 unit SQ DAILY [facility] Last Admin: 10/02/19 09:28 Dose: 5 unit Documented by: Insulin Human Lispro (Humalog) 0 unit SQ Q6 [facility]; Protocol Last Admin: 10/02/19 17:35 Dose: 3 unit Documented by: Levothyroxine Sodium (Synthroid) [facility] Metformin HCl (Glucophage) 500 [facility] Naloxone HCl (Narcan) 0.4 mg IV ONCE PRN PRN Reason: Opiate Reversal Prednisone (Prednisone) 20 mg PO [facility] Promethazine HCl (Phenergan) 12.5 mg IV Q6HP PRN PRN Reason: Nausea And Vomiting Pyridostigmine [place] (Regonol) 10 mg SC Q6 [facility] Last Admin: 10/02/19 17:35 Dose: 10 mg Documented by: Sodium Chloride (Saline Flush) 10 ml IV UD PRN PRN Reason: FLUSH Sodium Chloride (Saline Flush) 10 ml IV Q12 [facility] Last Admin: 10/02/19 09:37 Dose: 10 ml Documented by: Tramadol HCl (Ultram) 50 mg PO Q6HP PRN PRN Reason: Pain Last Admin: 10/02/19 12:08 Dose: 50 mg Documented by: Vitamin D (Vitamin D3) 1,000 unit PO DAILY [facility] - ABG Interpretation ABG results: 09/24/19 09/25/19 22:50 10:28 ABG Methemoglobin 0.2 L 0.3 L VBG pH 7.43 H 7.46 H VBG pCO2 37.9 L 38.0 L VBG pO2 126 H 71 H VBG HCO3 24.3 26.7 VBG Total CO2 25.5 27.8 VBG O2 Saturation 95.3 H 91.0 H VBG Base Excess 0 2.7 H Medical - PN: A/P - Time Spent With Patient Total time spent is greater than 50% in coordination of care (as documented) at patient's floor/unit and/or counseling patient: - Narrative A/P Narrative: A/P Narrative: A/P Narrative: 1. Acute hypoxic respiratory failure, s/p extubation on Probably aspiration pneumonia trying to wean off the oxygen Continue Zosyn for aspiration pneumonia and can change to Augmentin for total 10 days upon discharge. Complains of dark - brownish sputum. CXR - Mild bibasilar airspace disease more likely atelectasis than infiltrate. WBC 11.5. Closely monitor Pulmonary toilet 2. ARDS-acute lung injury Probably due to aspiration Improved 3. Septic shock secondary to aspiration pneumonia, resolved 4. Hypokalemia hypomagnesemia Replacement ordered 5. Acute renal failure due to septic shock-resolved 6. Type 2 diabetes Continue sliding scale insulin 7. Other chronic or stable problems: Morbid obesity BMI over 40 Continue nutrition support and decubitus ulcer precautions History of panhypopituitarism Continue stress dose of hydrocortisone and IV thyroxine History of myasthenia gravis Continue pyridostigmine DVT prophylaxis-subcu heparin CODE STATUS-full code Nutrition-diet can be advanced as per surgical recommendation and she is also on TPN which can be stopped when she is able to take regular diet Medical - PN: Qual - VTE Deep Vein Thrombosis/Pulmonary Embolism Present on Admission: No
[2019-10-02] MEDS: CALCIUM CARBONATE 1,250 MG/5 ML ORAL.SUSP PO SCH (21:40)
[2019-10-02] MEDS: DULoxetine 30 MG CAPSULE PO SCH (21:40)
[2019-10-03] MEDS: INSULIN LISPRO 1 UNIT/0.01 ML UNIT SQ SCH ×6 (00:30→21:29)
[2019-10-03] MEDS: PYRIDOSTIGMINE BROMIDE 10 MG/2 ML ML SC SCH ×5 (00:30→23:49)
[2019-10-03] MEDS: 0.9 % SODIUM CHLORIDE 10 ML SYRINGE IV SCH ×3 (02:17→19:51)
[2019-10-03] MEDS: HYDROmorphone 2 MG/ML VIAL IV PRN ×5 (02:17→19:51)
[2019-10-03] MEDS: traMADol 50 MG TABLET PO PRN ×4 (05:05→23:56)
[2019-10-03 06:28] LABS: Basophils # (Auto) 0.1 K/mcL (0.0-0.3); Basophils % (Auto) 0.4 % (0.0-2.0); Eosinophils # (Auto) 0.3 K/mcL (0.0-0.7); Eosinophils % (Auto) 1.9 % (0.0-7.0); Granulocytes % (Auto) 73.8 % (38.0-78.0); Hematocrit 37.2 % (36.0-48.0); Hemoglobin 12.2 g/dL (12.0-15.0); Lymphocytes # (Auto) 2.6 K/mcL (1.5-4.8); Lymphocytes % (Auto) 17.2 % (15.5-49.0); Mean Cell Volume 83.5 fL (80.0-100.0); Mean Corpuscular HGB Conc 32.7 g/dL (31.0-36.0); Mean Platelet Volume 7.6 fL (7.4-10.4); Monocytes % (Auto) 6.7 % (1.0-12.0); Platelet Count 388 K/mcL (140-440); RBC 4.45 M/mcL (4.00-5.20); Red Cell Distribution Width 17.5 % (11.5-14.5); WBC 15.2 K/mcL (4.5-11.0)
[2019-10-03 06:50] LABS: ALT/SGPT 78 U/l (0-40); AST/SGOT 51 U/l (0-37); Albumin 3.2 gm/dL (3.2-5.2); Alkaline Phosphatase 203 U/L (39-117); Bilirubin,Total 0.2 mg/dL (0.0-1.0); Blood Urea Nitrogen 28 mg/dl (6-20); Calcium 8.2 mg/dl (8.6-10.4); Carbon Dioxide 20 mmol/L (22-30); Chloride 97 mmol/L (96-108); Globulin 3.3 gm/dL (2.2-3.7); Glomerular Filtration Rate 107; Glucose 102 mg/dL (70-105)
[2019-10-03] MEDS: LEVOTHYROXINE 125 MCG TABLET PO SCH (07:53)
--- NOTE | 2019-10-03 08:17 | Internal Med Progress Note ---
Medical - PN: Subj Patient information: Note initiated : 10/03/19 at 8:08 am Service Date, if different from initiated Date: [] Patient: Dayanna Stephens a 58 y/o F admitted on 09/22/19 for NAUSEA AND VOMITING. Chief Complaint: [] Ms. Stephens is a 58 yof with a medical history of chronic hypocalcemia, polyglandular syndrome, sarcoidosis, myasthenia gravis and multiple bowel obstruction/abdominal surgeries with colostomy who was recently hospitalized at [facility] due to a bowel obstruction and underwent surgery x 2 between August 16 in September 21. Due to worsening abdominal pain and nausea vomiting she was admitted on 09/23 under surgical service for management of bowel obstruction. The patient no longer has fever and feels fine. Her sputum became central service tech. Denies headache, dizziness, fever, or chills. Patient has a good output through her stoma, about 500ml yesterday HR is high at times. WBC trending up to 15.2 today from 11.5 yesterday No overnight events - Constitutional Vitals: Vital Signs Temp Pulse Resp BP Pulse Ox 98.1 F 108 H 20 121/74 90 10/03/19 07:42 10/03/19 07:42 10/03/19 07:42 10/03/19 07:42 10/03/19 07:42 Period Temp Pulse Resp BP Sys/Archuleta Pulse Ox Last 24 Hr 97.0 F-98.3 F 69-108 16-20 121-189/74-99 90-96 Intake and Output 10/02/19 10/03/19 10/03/19 21:59 05:59 13:59 Intake Total 600 Output Total 600 800 Balance 0 -800 Weight 103.419 kg Intake & Output: Intake & Output 10/02/19 10/03/19 10/03/19 21:59 05:59 13:59 Intake Total 600 Output Total 600 800 Balance 0 -800 Weight 103.419 kg Intake: Oral 600 Output: Urine Catheter Amount 600 750 Stool 50 Other: Urine Appearance Clear Urine Color Dark Yellow Urine Odor Strong Stool Size Small Stool Color Brown Green Stool Consistency Soft General appearance: no acute distress - Head Head exam: Present: normal inspection - Eye Eye exam: Present: EOMI, normal appearance, PERRL - ENT ENT exam: Present: normal exam - Neck Neck exam: Present: normal inspection - Respiratory Respiratory exam: Present: rhonchi - Cardiovascular Cardiovascular exam: Present: normal rate and rhythm. Absent: JVD - GI/Abdominal GI/Abdominal exam: Present: tenderness (good output in colostomy bag) - Extremities Exam Extremities exam: Absent: tenderness, Justin's sign - Neurological Exam Neurological exam: Present: alert, oriented X3. Absent: motor sensory deficit - Psychiatric Psychiatric exam: Present: normal mood - Skin Skin exam: Present: warm Medical - PN: Obj Da - Labs CBC & Chem 7: 10/03/19 04:42 10/03/19 04:42 Labs: Abnormal Lab Results 10/03/19 10/03/19 10/02/19 04:42 04:42 04:50 WBC 15.2 H 11.5 H Hgb 11.1 L Hct 34.7 L RDW 17.5 H 18.2 H Gran % 79.4 H Lymph % (Auto) 14.3 L Gran # 11.2 H 9.2 H Preston # (Auto) 1.0 H Carbon Dioxide 20 L BUN 28 H Creatinine 0.5 L Glucose Uric Acid Calcium 8.2 L GGT AST 51 H ALT 78 H Alkaline Phosphatase 203 H Lactate Dehydrogenase Triglycerides 10/02/19 10/01/19 10/01/19 04:50 03:49 03:49 WBC Hgb 11.1 L Hct 35.0 L RDW 18.0 H Gran % Lymph % (Auto) Gran # Preston # (Auto) Carbon Dioxide BUN 30 H 26 H Creatinine 0.5 L 0.5 L Glucose 172 H 228 H Uric Acid 1.5 L 1.2 L Calcium 7.9 L 8.3 L GGT 112 H 90 H AST ALT 43 H Alkaline Phosphatase 197 H 179 H Lactate Dehydrogenase 283 H Triglycerides 469 H 392 H Meds: Medications Acetaminophen (Tylenol) 650 mg PO Q6HP PRN PRN Reason: PAIN/FEVER > 101 Calcitriol (Rocaltrol) 0.25 mcg PO TID COUNT INCLUDES THE [facility] Last Admin: 10/02/19 21:40 Dose: 0.25 mcg Documented by: Calcium Carbonate/Glycine (Calcium Carbonate) 1,200 mg PO BID COUNT INCLUDES THE [facility] Last Admin: 10/02/19 21:40 Dose: 1,200 mg Documented by: Cyclobenzaprine HCl (Flexeril) 10 mg PO TID COUNT INCLUDES THE [facility] Last Admin: 10/02/19 21:40 Dose: 10 mg Documented by: Dextrose (Dextrose 50%) 0 ml IV UD PRN PRN Reason: Hypoglycemia Diagnostic Test (Pha) (Accu-Chek) 1 each FS [facility] Last Admin: 10/03/19 07:56 Dose: 1 each Documented by: Duloxetine HCl (Cymbalta) 30 mg PO BID COUNT INCLUDES THE [facility] Last Admin: 10/02/19 21:40 Dose: 30 mg Documented by: Glucose (Insta-Glucose) 15 gm PO PRN PRN PRN Reason: Hypoglycemia Heparin Sodium (Porcine) (Heparin) 5,000 unit SQ Q12 COUNT INCLUDES THE [facility] Last Admin: 10/02/19 21:40 Dose: 5,000 unit Documented by: Hydromorphone HCl (Dilaudid) 1 mg IV Q4HP PRN; Protocol PRN Reason: Per Pain Protocol Last Admin: 10/03/19 07:28 Dose: 1 mg Documented by: Insulin Glargine (Lantus) 5 unit SQ DAILY COUNT INCLUDES THE [facility] Last Admin: 10/02/19 09:28 Dose: 5 unit Documented by: Insulin Human Lispro (Humalog) 0 unit SQ [facility]; Protocol Last Admin: 10/03/19 07:57 Dose: Not Given Documented by: [facility]othy[facility]ine [facility] ([facility]throid) [facility] Last Admin: 10/03/19 07:53 Dose: 250 mcg Documented by: Metformin HCl (Glucophage) 500 mg PO [facility] Naloxone HCl (Narcan) 0.4 mg IV ONCE PRN PRN Reason: Opiate Reversal Prednisone (Prednisone) 20 mg PO [facility] Promethazine HCl (Phenergan) 12.5 mg IV Q6HP PRN PRN Reason: Nausea And Vomiting Pyridostigmine [place] (Regonol) 10 mg SC Q6 COUNT INCLUDES THE [facility] Last Admin: 10/03/19 05:06 Dose: 10 mg Documented by: Sodium Chloride (Saline Flush) 10 ml IV UD PRN PRN Reason: FLUSH Sodium Chloride (Saline Flush) 10 ml IV Q12 COUNT INCLUDES THE [facility] Last Admin: 10/03/19 02:17 Dose: 10 ml Documented by: Tramadol HCl (Ultram) 50 mg PO Q6HP PRN PRN Reason: Pain Last Admin: 10/03/19 05:05 Dose: 50 mg Documented by: Vitamin D (Vitamin D3) 1,000 unit PO DAILY COUNT INCLUDES THE [facility] - ABG Interpretation ABG results: 09/24/19 09/25/19 22:50 10:28 ABG Methemoglobin 0.2 L 0.3 L VBG pH 7.43 H 7.46 H VBG pCO2 37.9 L 38.0 L VBG pO2 126 H 71 H VBG HCO3 24.3 26.7 VBG Total CO2 25.5 27.8 VBG O2 Saturation 95.3 H 91.0 H VBG Base Excess 0 2.7 H Medical - PN: A/P - Time Spent With Patient Total time spent is greater than 50% in coordination of care (as documented) at patient's floor/unit and/or counseling patient: - Narrative A/P Narrative: Assessment and plan: 1. Acute hypoxic respiratory failure, s/p extubation on CXR - Mild bibasilar airspace disease more likely atelectasis than infiltrate. Improvement from plain film three days ago Saturation good, on RM Continue Zosyn for aspiration pneumonia and can change to Augmentin for total 10 days upon discharge. Pulmonary toilet WBC trending up, I will do blood culture and UA. 2. ARDS-acute lung injury Probably due to aspiration Improved 3. Septic shock secondary to aspiration pneumonia, resolved 4. Hypokalemia hypomagnesemia Replacement ordered 5. Acute renal failure due to septic shock-resolved 6. Type 2 diabetes Continue sliding scale insulin 7. Other chronic or stable problems: Morbid obesity BMI over 40 Continue nutrition support and decubitus ulcer precautions History of panhypopituitarism Continue stress dose of hydrocortisone and IV thyroxine History of myasthenia gravis Continue pyridostigmine DVT prophylaxis-subcu heparin CODE STATUS-full code Nutrition-diet can be advanced as per surgical recommendation and she is also on TPN which can be stopped when she is able to take regular diet Deposition: PT/OT Medical - PN: Qual - VTE Deep Vein Thrombosis/Pulmonary Embolism Present on Admission: No
[2019-10-03] MEDS: CALCIUM CARBONATE 1,250 MG/5 ML ORAL.SUSP PO SCH ×2 (09:45→21:28)
[2019-10-03] MEDS: VITAMIN D3 1,000 UNIT TABLET PO SCH (09:46)
[2019-10-03] MEDS: metFORMIN 500 MG TABLET PO SCH (09:46)
[2019-10-03] MEDS: predniSONE 20 MG TABLET PO SCH (09:46)
[2019-10-03] MEDS: DULoxetine 30 MG CAPSULE PO SCH ×2 (09:46→21:29)
[2019-10-03] MEDS: HEPARIN 5,000 UNIT/ML VIAL SQ SCH ×2 (09:46→21:29)
[2019-10-03] MEDS: CALCITRIOL 0.25 MCG CAPSULE PO SCH ×3 (09:46→21:29)
[2019-10-03] MEDS: INSULIN GLARGINE, HUMAN 1 UNIT/0.01 ML SQ SCH (09:46)
[2019-10-03] MEDS: CYCLOBENZAPRINE 10 MG TABLET PO SCH ×3 (09:46→21:29)
--- NOTE | 2019-10-03 10:48 | General Surgery Progress Note ---
Subjective Patient reports: no new complaints, tolerating a regular diet, voiding w/o difficulty, bowel movement, afebrile Narrative: Note initiated : 10/03/19 at 10:45 am Service Date, if different from initiated Date: [] Patient: Dayanna Stephens a 58 y/o F admitted on 09/22/19 for NAUSEA AND VOMITING. Chief Complaint: [] HD 11 for lady with complicated history as noted in prior Dr. Currie & Hospitalist notes which I have reviewed - actually familiar with her from prior visits. Very weak at this point - only getting basically bedside PT. penitentiary plan is to acute rehab for strengthening. Eating well. Good ostomy & urine output. Mainly R flank discomfort. Did have acute event as noted this hospitalization. No new complaints overnight. Pertinent ROS: no fevers chills. No N or V No CP, SOB, OLIVA, tachy, palp No new abdominal complaints No urinary complaints No new neuro complaints - just generalized weakness Additional PMFSH (Level 3 Only): No new PMSH Objective Temp Pulse Resp BP Pulse Ox 98.1 F 108 H 20 121/74 90 10/03/19 07:42 10/03/19 07:42 10/03/19 07:42 10/03/19 07:42 10/03/19 07:42 - Additional Data Intake & Output - Last 24 hours: Intake & Output 10/01/19 10/02/19 10/03/19 10/04/19 05:59 05:59 05:59 05:59 Intake Total 5830 958 6729 Output Total 3242 2800 1850 Balance -2182 -2310 1618 Weight 226 lb 228 lb 8 oz 228 lb - General physical appearance no pain, chronically ill, obese - Eyes normal ocular movement - ENT normal mucosa, no hearing loss, no congestion - Neck no masses, no bruits, trachea midline, no lymphadenopathy, no venous distension - Respiratory other (distant BS, some scattered rhonchi, decent excursion) - Cardiovascular Cardiovascular exam: Present: normal rate and rhythm - Abdomen soft, non tender, bowel sounds, surgical scars - Integumentary no rash, no growths, no abnormal pigmentation - Neurologic normal coordination, normal sensation - Musculoskeletal other (weak) - Psychiatric oriented to time, oriented to person, oriented to place, speech is normal, memory intact - Labs 10/03/19 04:42 10/03/19 04:42 Diabetes panel 10/03/19 Range/Units 04:42 Sodium 133 (133-145) mmol/L Potassium 4.8 (3.3-5.1) mmol/L Chloride 97 (96-108) mmol/L Carbon Dioxide 20 L (22-30) mmol/L BUN 28 H (6-20) mg/dl Creatinine 0.5 L (0.6-1.1) mg/dl Glucose 102 (70-105) mg/dL Calcium 8.2 L (8.6-10.4) mg/dl AST 51 H (0-37) U/l ALT 78 H (0-40) U/l Alkaline Phosphatase 203 H (39-117) U/L Total Protein 6.5 (5.9-8.4) gm/dL Albumin 3.2 (3.2-5.2) gm/dL Calcium panel 10/03/19 Range/Units 04:42 Calcium 8.2 L (8.6-10.4) mg/dl Albumin 3.2 (3.2-5.2) gm/dL Pituitary panel 10/03/19 Range/Units 04:42 Sodium 133 (133-145) mmol/L Potassium 4.8 (3.3-5.1) mmol/L Chloride 97 (96-108) mmol/L Carbon Dioxide 20 L (22-30) mmol/L BUN 28 H (6-20) mg/dl Creatinine 0.5 L (0.6-1.1) mg/dl Glucose 102 (70-105) mg/dL Calcium 8.2 L (8.6-10.4) mg/dl Adrenal panel 10/03/19 Range/Units 04:42 Sodium 133 (133-145) mmol/L Potassium 4.8 (3.3-5.1) mmol/L Chloride 97 (96-108) mmol/L Carbon Dioxide 20 L (22-30) mmol/L BUN 28 H (6-20) mg/dl Creatinine 0.5 L (0.6-1.1) mg/dl Glucose 102 (70-105) mg/dL Calcium 8.2 L (8.6-10.4) mg/dl Total Bilirubin 0.2 (0.0-1.0) mg/dL AST 51 H (0-37) U/l ALT 78 H (0-40) U/l Alkaline Phosphatase 203 H (39-117) U/L Total Protein 6.5 (5.9-8.4) gm/dL Albumin 3.2 (3.2-5.2) gm/dL - Imaging Chest x-ray: report reviewed Abdominal x-ray: report reviewed Assessment and Plan (1) Nausea and vomiting Status: Acute Assessment and plan: no changes Current Visit: Yes (2) Recurrent abdominal pain Status: Acute Current Visit: Yes (3) Lactic acid acidosis Status: Acute Current Visit: Yes (4) Sinus tachycardia Status: Acute Current Visit: Yes (5) UTI (urinary tract infection) Status: Acute Current Visit: Yes (6) Sepsis Status: Acute Assessment and plan: WBC is up Cultures ordered No change in CXR On aspiration AB Current Visit: Yes (7) Dehydration Status: Acute Current Visit: Yes (8) Small bowel obstruction Status: Acute Current Visit: Yes - Time Spent With Patient Total time spent is greater than 50% in coordination of care (as documented) at patient's floor/unit and/or counseling patient: 25 - 35 minutes
--- NOTE | 2019-10-03 14:06 | Internal Med Progress Note ---
Medical - PN: Subj Patient information: Note initiated : 10/03/19 at 1:58 pm Service Date, if different from initiated Date: [] Patient: Dayanna Stephens a 58 y/o F admitted on 09/22/19 for NAUSEA AND VOMITING. Chief Complaint: [] Interval history: Ms. Stephens is a 58 year old morbidly obese F with a complex medical history of parathyroidism , chronic hypocalcemia, polyglandular syndrome, sarcoidosis, myasthenia gravis and multiple bowel obstruction/abdominal surgeries with colostomy who underwent recent hospitalization at [facility] following a bowel obstruction and underwent surgery x2 between August 16 in September 21. Patient was discharged to care center however due to worsening abdominal pain and nausea vomiting she was admitted on 09/23 under surgical service for management of bowel obstruction. She underwent NG decompression. Early this morning patient was found to be increasingly dyspneic with sats in mid 60s following episode of nausea and large emesis. Patient was evaluated by surgery and underwent intubation due to profound hypoxia and was initiated on mechanical ventilation. Systolics was around 80 and was started on Levophed after crystalloid boluses. Subsequently hospitalist service was consulted for management of mechanical ventilation and shock/hypoxic respiratory failure At the time evaluation patient is on mechanical ventilation. Family members are present. Most of the history is obtained from review of medical records and Dr. Currie surgeon Patient has an ostomy which was noted to be draining copious amount of liquid output She is febrile at 101.1. Is currently on vasopressors at 10 mics. She received 3 L of crystalloids. Martinez is draining dark urine. Right subclavian central line was secured by anesthesia. Initial blood gas 7.35/40 2/64 on 70% FiO2 PEEP 5, plateau pressure 23 peak pressure 12, tidal volume 450 rate 14. 12/13-patient remains critically ill on mechanical ventilation. Copious NG output. Patient responding to commands. Started on stress dose hydrocortisone in the setting of myasthenia and previously being on prednisone. Off pressors. Map at goal. ABG reviewed 7.42/34/56. Interval chest imaging slightly improv ed however on PEEP 8/FiO2 50% with large AA gradient and PaO2 FiO2 ratio around 100. Patient will be a difficult candidate for ventilator weaning in the setting of myasthenia and morbid obesity with ALI/early ARDS picture. White count 17.5, central venous oxygen sat 95, urine output 30 cc an hour. Net 6500 cc positive fluid balance in the last 24 hours. Continue Zosyn. Kaw II score 21 09/26-hemoglobin down to 6.7. 2 units PRBC transfusion. No obvious source of bleed. White count down from 17.5-9.3. Potassium down to 3 on replacement. Off vasopressors. PEEP 8 FiO2 50%. Diuresing well. Lower total fluid infusion to 100 cc an hour cumulative including TPN. Initiate gentle diuresis to optimize lung compliance in anticipation of extubation. Improving AA gradient/PaO2 FiO2 ratio. Await interval chest imaging/blood gas. Anticipate extubation in the next 24 to 48 hours. Will require careful evaluation of RSBI/NIF/plateau pressures/pulmonary compliance in the setting of myasthenia for successful extubation. NG output 250 cc overnight bilious 09/27-her vital signs are maintained her ABG showing improvement in oxygenation and we decrease her PEEP to 6 and once her oxygenation maintained we will try to titrate down the FiO2 and will plan for sedation vacation. Dr. Currie ordered diuresis and agreed with the plan. Hemoglobin is 9.3 no evidence of any acute bleed. She has underlying history of myasthenia gravis which makes extubation difficult. She was opening her eyes even while on sedation which is a good sign. Improving the AA gradient and acute lung injury. She continues to have significant output on suctioning with a ananda material. 09/28-patient was on sedation vacation since this morning and she is doing well and we put her on spontaneous breathing trials and she did well and did an ABG which was within normal limits and her rapid shallow breathing index was within normal limits patient was off of sedation completely not on any sedatives or mu scle relaxants and she was extubated successfully and post extubation patient is doing well she was on 2 L of nasal cannula oxygen. Surgical team evaluated the patient and recommended clear liquid diet. Patient progressed well today and will use incentive spirometer. 09/29-post extubation patient is doing great she is tolerating clear liquid diet and she is also on TPN her diet can be advanced and will await further surgical recommendations. Respiratory failure improved and will try weaning her off of oxygen. I encourage her to use incentive spirometer. Continue broad-spectrum antibiotic for now which can be changed to p.o. Augmentin upon discharge for total 10 days 09/30-patient spiked fever last night and received 2 dose of Tylenol ordered a set of blood culture, ordered a urine analysis-urine no signs of UTI. Patient has severe atelectasis and she is not using incentive spirometer. Atelectasis could be the reason for her fever and she also has Mitra albicans growing in her sputum culture and given single dose of fluconazole IV 200 mg. I encouraged the patient to use I-S and if she continued having fever we should repeat a CT scan of her chest and abdomen to look for any abscess or source of infection or empyema. Otherwise I continued Zosyn but if she spikes fever again I recommend adding vancomycin and ordering CT scan. 10/01 The patient no longer has fever and feels fine. Denies headache, dizziness, fever, or chills. Patient has a good output through her stoma. AXR - Decompressed GI tract. 10/02 The patient no longer has fever and feels fine. Denies headache, dizziness, fever, or chills. Patient has a good output through her stoma. But this morning she complains of dark-brownish sputum No overnight events 10/03 The patient no longer has fever and feels fine. Her sputum became charger tester. Denies headache, dizziness, fever, or chills. Patient has a good output through her stoma, about 500ml yesterday HR is high at times. WBC trending up to 15.2 today from 11.5 yesterday No overnight events - Constitutional Vitals: Vital Signs Temp Pulse Resp BP Pulse Ox 98.1 F 108 H 20 121/74 90 10/03/19 07:42 10/03/19 07:42 10/03/19 07:42 10/03/19 07:42 10/03/19 07:42 Period Temp Pulse Resp BP Sys/Archuleta Pulse Ox Last 24 Hr 98.0 F-98.3 F 93-108 - 121-160/74-99 90-96 Intake and Output 10/02/19 10/03/19 10/03/19 21:59 05:59 13:59 Intake Total 600 0 Output Total 600 800 Balance 0 -800 0 Weight 103.419 kg Intake & Output: Intake & Output 10/02/19 10/03/19 10/03/19 21:59 05:59 13:59 Intake Total 600 0 Output Total 600 800 Balance 0 -800 0 Weight 103.419 kg Intake: Nourishment/Supplement quantity 0 (ml) Oral 600 Output: Urine Catheter Amount 600 750 Stool 50 Other: Meal Breakfast Percent of Meal Consumed 50% Feeding Ability Independent Nourishment/Supplement name Breeze Urine Appearance Clear Urine Color Dark Yellow Urine Odor Strong Stool Size Small Stool Color Brown Green Stool Consistency Soft Exam: General: Alert, Awake, No acute Distress Eyes/N/T: EOMI, PERRL, MM Head/Neck: neck supple, normocephalic atraumatic CV: RRR, No murmurs, normal s1/s2 Pulm: Clear b/l, no wheezing/rhonchi/rales Abd: mild tenderness, +BS x4, colostomy in place Ext: no clubbing/cyanosis/edema Neuro: Alert, no focal deficits, moves all extremities, CN 2-12 grossly intact, symmetrical strength b/l upper/lower, sensations intact b/l upper/lower Skin: warm/dry Medical - PN: Obj Da - Labs CBC & Chem 7: 10/03/19 04:42 10/03/19 04:42 Labs: Abnormal Lab Results 10/03/19 10/03/19 10/02/19 04:42 04:42 04:50 WBC 15.2 H 11.5 H Hgb 11.1 L Hct 34.7 L RDW 17.5 H 18.2 H Gran % 79.4 H Lymph % (Auto) 14.3 L Gran # 11.2 H 9.2 H [place] # (Auto) 1.0 H Carbon Dioxide 20 L BUN 28 H Creatinine 0.5 L Glucose Uric Acid Calcium 8.2 L GGT AST 51 H ALT 78 H Alkaline Phosphatase 203 H Lactate Dehydrogenase Triglycerides 10/02/19 10/01/19 10/01/19 04:50 03:49 03:49 WBC Hgb 11.1 L Hct 35.0 L RDW 18.0 H Gran % Lymph % (Auto) Gran # [place] # (Auto) Carbon Dioxide BUN 30 H 26 H Creatinine 0.5 L 0.5 L Glucose 172 H 228 H Uric Acid 1.5 L 1.2 L Calcium 7.9 L 8.3 L GGT 112 H 90 H AST ALT 43 H Alkaline Phosphatase 197 H 179 H Lactate Dehydrogenase 283 H Triglycerides 469 H 392 H Meds: Medications Acetaminophen (Tylenol) 650 mg PO Q6HP PRN PRN Reason: PAIN/FEVER > 101 Calcitriol (Rocaltrol) 0.25 mcg PO TID [facility] Last Admin: 10/03/19 09:46 Dose: 0.25 mcg Documented by: Calcium Carbonate/Glycine (Calcium Carbonate) 1,200 mg PO BID [facility] Last Admin: 10/03/19 09:45 Dose: 1,200 mg Documented by: Cyclobenzaprine HCl (Flexeril) 10 mg PO TID [facility] Last Admin: 10/03/19 09:46 Dose: 10 mg Documented by: Dextrose (Dextrose 50%) 0 ml IV UD PRN PRN Reason: Hypoglycemia Diagnostic Test (Pha) (Accu-Chek) 1 each FS [facility] Last Admin: 10/03/19 12:00 Dose: 1 each Documented by: Duloxetine HCl (Cymbalta) 30 mg PO BID [facility] Last Admin: 10/03/19 09:46 Dose: 30 mg Documented by: Glucose (Insta-Glucose) 15 gm PO PRN PRN PRN Reason: Hypoglycemia Heparin Sodium (Porcine) (Heparin) 5,000 unit SQ Q12 [facility] Last Admin: 10/03/19 09:46 Dose: 5,000 unit Documented by: Hydromorphone HCl (Dilaudid) 1 mg IV Q4HP PRN; Protocol PRN Reason: Per Pain Protocol Last Admin: 10/03/19 11:58 Dose: 1 mg Documented by: Insulin Glargine (Lantus) 5 unit SQ DAILY [facility] Last Admin: 10/03/19 09:46 Dose: 5 unit Documented by: Insulin Human Lispro (Humalog) 0 unit SQ [facility]; Protocol Last Admin: 10/03/19 12:03 Dose: Not Given Documented by: Levothyroxine Sodium (Synthroid) 250 mcg PO [facility] Last Admin: 10/03/19 07:53 Dose: 250 mcg Documented by: Metformin HCl (Glucophage) [address] [facility] Last Admin: 10/03/19 09:46 Dose: 500 mg Documented by: Naloxone HCl (Narcan) 0.4 mg IV ONCE PRN PRN Reason: Opiate Reversal Prednisone (Prednisone) [address] [facility] Last Admin: 10/03/19 09:46 Dose: 20 mg Documented by: Promethazine HCl (Phenergan) 12.5 mg IV Q6HP PRN PRN Reason: Nausea And Vomiting Pyridostigmine [place] (Regonol) 10 mg SC Q6 [facility] Last Admin: 10/03/19 11:57 Dose: 10 mg Documented by: Sodium Chloride (Saline Flush) 10 ml IV UD PRN PRN Reason: FLUSH Sodium Chloride (Saline Flush) 10 ml IV Q12 [facility] Last Admin: 10/03/19 09:47 Dose: 10 ml Documented by: Tramadol HCl (Ultram) 50 mg PO Q6HP PRN PRN Reason: Pain Last Admin: 10/03/19 11:57 Dose: 50 mg Documented by: Vitamin D (Vitamin D3) 1,000 unit PO DAILY [facility] Last Admin: 10/03/19 09:46 Dose: 1,000 unit Documented by: - ABG Interpretation ABG results: 09/24/19 09/25/19 22:50 10:28 ABG Methemoglobin 0.2 L 0.3 L VBG pH 7.43 H 7.46 H VBG pCO2 37.9 L 38.0 L VBG pO2 126 H 71 H VBG HCO3 24.3 26.7 VBG Total CO2 25.5 27.8 VBG O2 Saturation 95.3 H 91.0 H VBG Base Excess 0 2.7 H Medical - PN: A/P - Time Spent With Patient Total time spent is greater than 50% in coordination of care (as documented) at patient's floor/unit and/or counseling patient: - Narrative A/P Narrative: A: *Acute hypoxic respiratory failure, s/p extubation on -CXR - Mild bibasilar airspace disease more likely atelectasis than infiltrate. Improvement from plain film three days ago Saturation good, on RM *ARDS-acute lung injury -Probably due to aspiration. Improved *Septic shock secondary to aspiration pneumonia, resolved * Hypokalemia/hypomagnesemia * THANIA on CKD: due to septic shock-resolved *DM II: *Chronic abdominal pain: *h/o Recurrent SBO: *Morbid obesity: *Myasthenia gravis: On prednisone 20 mg daily at baseline, Continue pyridostigmine *h/o panhypopituitarism: *HTN: On lisinopril P: -Continue Zosyn for aspiration pneumonia and can change to Augmentin for total 10 days upon discharge. -Pulmonary toilet -WBC trending up, I will do blood culture and UA. -SSI, lantus, metformin -cont home prednisone and thyroxine -diet/TPN per surgery -ppx: heparin full code Medical - PN: Qual - VTE Deep Vein Thrombosis/Pulmonary Embolism Present on Admission: No
[2019-10-04] MEDS: PYRIDOSTIGMINE BROMIDE 10 MG/2 ML ML SC SCH ×3 (05:10→17:55)
[2019-10-04 06:23] LABS: Basophils # (Auto) 0 K/mcL (0.0-0.3); Basophils % (Auto) 0.2 % (0.0-2.0); Eosinophils # (Auto) 0.2 K/mcL (0.0-0.7); Eosinophils % (Auto) 1.5 % (0.0-7.0); Granulocytes % (Auto) 75.8 % (38.0-78.0); Hematocrit 35.9 % (36.0-48.0); Hemoglobin 11.5 g/dL (12.0-15.0); Lymphocytes # (Auto) 2.2 K/mcL (1.5-4.8); Lymphocytes % (Auto) 17.8 % (15.5-49.0); Mean Cell Volume 86.2 fL (80.0-100.0); Mean Platelet Volume 7.2 fL (7.4-10.4); Monocytes # (Auto) 0.6 K/mcL (0.1-0.9); Monocytes % (Auto) 4.7 % (1.0-12.0); Platelet Count 423 K/mcL (140-440); RBC 4.17 M/mcL (4.00-5.20); WBC 12.4 K/mcL (4.5-11.0)
[2019-10-04] MEDS: LEVOTHYROXINE 125 MCG TABLET PO SCH (07:13)
[2019-10-04] MEDS: INSULIN LISPRO 1 UNIT/0.01 ML UNIT SQ SCH ×4 (07:18→21:06)
--- NOTE | 2019-10-04 07:57 | Internal Med Progress Note ---
Medical - PN: Subj Patient information: Note initiated : 10/04/19 at 7:53 am Service Date, if different from initiated Date: [] Patient: Dayanna Stephens a 58 y/o F admitted on 09/22/19 for NAUSEA AND VOMITING. Chief Complaint: [] Interval history: Ms. Stephens is a 58 year old morbidly obese F with a complex medical history of parathyroidism , chronic hypocalcemia, polyglandular syndrome, sarcoidosis, myasthenia gravis and multiple bowel obstruction/abdominal surgeries with colostomy who underwent recent hospitalization at [facility] following a bowel obstruction and underwent surgery x2 between August 16 in September 21. Patient was discharged to care center however due to worsening abdominal pain and nausea vomiting she was admitted on 09/23 under surgical service for management of bowel obstruction. She underwent NG decompression. Early this morning patient was found to be increasingly dyspneic with sats in mid 60s following episode of nausea and large emesis. Patient was evaluated by surgery and underwent intubation due to profound hypoxia and was initiated on mechanical ventilation. Systolics was around 80 and was started on Levophed after crystalloid boluses. Subsequently hospitalist service was consulted for management of mechanical ventilation and shock/hypoxic respiratory failure At the time evaluation patient is on mechanical ventilation. Family members are present. Most of the history is obtained from review of medical records and Dr. Currie surgeon Patient has an ostomy which was noted to be draining copious amount of liquid output She is febrile at 101.1. Is currently on vasopressors at 10 mics. She received 3 L of crystalloids. Martinez is draining dark urine. Right subclavian central line was secured by anesthesia. Initial blood gas 7.35/40 2/64 on 70% FiO2 PEEP 5, plateau pressure 23 peak pressure 12, tidal volume 450 rate 14. 12/13-patient remains critically ill on mechanical ventilation. Copious NG output. Patient responding to commands. Started on stress dose hydrocortisone in the setting of myasthenia and previously being on prednisone. Off pressors. Map at goal. ABG reviewed 7.42/34/56. Interval chest imaging slightly improv ed however on PEEP 8/FiO2 50% with large AA gradient and PaO2 FiO2 ratio around 100. Patient will be a difficult candidate for ventilator weaning in the setting of myasthenia and morbid obesity with ALI/early ARDS picture. White count 17.5, central venous oxygen sat 95, urine output 30 cc an hour. Net 6500 cc positive fluid balance in the last 24 hours. Continue Zosyn. Resighini II score 21 09/26-hemoglobin down to 6.7. 2 units PRBC transfusion. No obvious source of bleed. White count down from 17.5-9.3. Potassium down to 3 on replacement. Off vasopressors. PEEP 8 FiO2 50%. Diuresing well. Lower total fluid infusion to 100 cc an hour cumulative including TPN. Initiate gentle diuresis to optimize lung compliance in anticipation of extubation. Improving AA gradient/PaO2 FiO2 ratio. Await interval chest imaging/blood gas. Anticipate extubation in the next 24 to 48 hours. Will require careful evaluation of RSBI/NIF/plateau pressures/pulmonary compliance in the setting of myasthenia for successful extubation. NG output 250 cc overnight bilious 09/27-her vital signs are maintained her ABG showing improvement in oxygenation and we decrease her PEEP to 6 and once her oxygenation maintained we will try to titrate down the FiO2 and will plan for sedation vacation. Dr. Currie ordered diuresis and agreed with the plan. Hemoglobin is 9.3 no evidence of any acute bleed. She has underlying history of myasthenia gravis which makes extubation difficult. She was opening her eyes even while on sedation which is a good sign. Improving the AA gradient and acute lung injury. She continues to have significant output on suctioning with a ananda material. 09/28-patient was on sedation vacation since this morning and she is doing well and we put her on spontaneous breathing trials and she did well and did an ABG which was within normal limits and her rapid shallow breathing index was within normal limits patient was off of sedation completely not on any sedatives or mu scle relaxants and she was extubated successfully and post extubation patient is doing well she was on 2 L of nasal cannula oxygen. Surgical team evaluated the patient and recommended clear liquid diet. Patient progressed well today and will use incentive spirometer. 09/29-post extubation patient is doing great she is tolerating clear liquid diet and she is also on TPN her diet can be advanced and will await further surgical recommendations. Respiratory failure improved and will try weaning her off of oxygen. I encourage her to use incentive spirometer. Continue broad-spectrum antibiotic for now which can be changed to p.o. Augmentin upon discharge for total 10 days 09/30-patient spiked fever last night and received 2 dose of Tylenol ordered a set of blood culture, ordered a urine analysis-urine no signs of UTI. Patient has severe atelectasis and she is not using incentive spirometer. Atelectasis could be the reason for her fever and she also has Mitra albicans growing in her sputum culture and given single dose of fluconazole IV 200 mg. I encouraged the patient to use I-S and if she continued having fever we should repeat a CT scan of her chest and abdomen to look for any abscess or source of infection or empyema. Otherwise I continued Zosyn but if she spikes fever again I recommend adding vancomycin and ordering CT scan. 10/01 The patient no longer has fever and feels fine. Denies headache, dizziness, fever, or chills. Patient has a good output through her stoma. AXR - Decompressed GI tract. 10/02 The patient no longer has fever and feels fine. Denies headache, dizziness, fever, or chills. Patient has a good output through her stoma. But this morning she complains of dark-brownish sputum No overnight events 10/03 The patient no longer has fever and feels fine. 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 Denies headache, dizziness, fever, or chills. Patient has a good output through her stoma, about 500ml yesterday HR is high at times. WBC trending up to 15.2 today from 11.5 yesterday No overnight events 10/04 Continues to gradually feel better. Has cough with sputum production, decreased shortness of breath. Good output through her stoma. Slept well and no new complaints. Review of Systems: denies headache/fever/chills/nausea/vomiting/chest or abdominal pain/diarrhea. Otherwise see above. - Constitutional Vitals: Vital Signs Temp Pulse Resp BP Pulse Ox 97.4 F 88 20 137/87 96 10/04/19 02:56 10/04/19 02:56 10/04/19 02:56 10/04/19 02:56 10/04/19 04:00 Period Temp Pulse Resp BP Sys/Archuleta Pulse Ox Last 24 Hr 97.2 F-97.9 F 81-92 20-20 119-141/72-87 93-96 Intake and Output 10/03/19 10/04/19 10/04/19 21:59 05:59 13:59 Intake Total 600 Output Total 650 480 Balance -650 120 Weight 101.06 kg Intake & Output: Intake & Output 10/03/19 10/04/19 10/04/19 21:59 05:59 13:59 Intake Total 600 Output Total 650 480 Balance -650 120 Weight 101.06 kg Intake: Oral 600 Output: Urine Catheter Amount 650 330 Stool 150 Other: Urine Appearance Clear Clear Urine Color Dark Yellow Bright Yellow Urine Odor Normal Normal Exam: General: Alert, Awake, No acute Distress, obese Eyes/N/T: EOMI, Head/Neck: neck supple, normocephalic atraumatic CV: RRR, No murmurs, Pulm: Clear b/l, no wheezing/rhonchi/rales Abd: mild tenderness, +BS x4, colostomy in place Ext: no clubbing/cyanosis/edema Neuro: Alert, no focal deficits, moves all extremities, Skin: warm/dry Medical - PN: Obj Da - Labs CBC & Chem 7: 10/04/19 04:39 10/03/19 04:42 Labs: Abnormal Lab Results 10/04/19 10/03/19 10/03/19 04:39 04:42 04:42 WBC 12.4 H 15.2 H Hgb 11.5 L Hct 35.9 L RDW 19.0 H 17.5 H MPV 7.2 L Gran % Lymph % (Auto) Gran # 9.4 H 11.2 H Yuba # (Auto) 1.0 H Carbon Dioxide 20 L BUN 28 H Creatinine 0.5 L Glucose Uric Acid Calcium 8.2 L GGT AST 51 H ALT 78 H Alkaline Phosphatase 203 H Triglycerides 10/02/19 10/02/19 04:50 04:50 WBC 11.5 H Hgb 11.1 L Hct 34.7 L RDW 18.2 H MPV Gran % 79.4 H Lymph % (Auto) 14.3 L Gran # 9.2 H Yuba # (Auto) Carbon Dioxide BUN 30 H Creatinine 0.5 L Glucose 172 H Uric Acid 1.5 L Calcium 7.9 L GGT 112 H AST ALT 43 H Alkaline Phosphatase 197 H Triglycerides 469 H Meds: Medications Acetaminophen (Tylenol) 650 mg PO Q6HP PRN PRN Reason: PAIN/FEVER > 101 Calcitriol (Rocaltrol) 0.25 mcg PO TID [facility] Last Admin: 10/03/19 21:29 Dose: 0.25 mcg Documented by: Calcium Carbonate/Glycine (Calcium Carbonate) 1,200 mg PO BID [facility] Last Admin: 10/03/19 21:28 Dose: 1,200 mg Documented by: Cyclobenzaprine HCl (Flexeril) 10 mg PO TID [facility] Last Admin: 10/03/19 21:29 Dose: 10 mg Documented by: Dextrose (Dextrose 50%) 0 ml IV UD PRN PRN Reason: Hypoglycemia Diagnostic Test (Pha) (Accu-Chek) 1 each FS [facility] Last Admin: 10/04/19 07:17 Dose: 1 each Documented by: Duloxetine HCl (Cymbalta) 30 mg PO BID [facility] Last Admin: 10/03/19 21:29 Dose: 30 mg Documented by: Glucose (Insta-Glucose) 15 gm PO PRN PRN PRN Reason: Hypoglycemia Heparin Sodium (Porcine) (Heparin) 5,000 unit SQ Q12 [facility] Last Admin: 10/03/19 21:29 Dose: 5,000 unit Documented by: Hydromorphone HCl (Dilaudid) 1 mg IV Q4HP PRN; Protocol PRN Reason: Per Pain Protocol Last Admin: 10/03/19 19:51 Dose: 1 mg Documented by: Insulin Glargine (Lantus) 5 unit SQ DAILY [facility] Last Admin: 10/03/19 09:46 Dose: 5 unit Documented by: Insulin Human Lispro (Humalog) 0 unit SQ [facility]; Protocol Last Admin: 10/04/19 07:18 Dose: Not Given Documented by: Levothyroxine Sodium (Synthroid) [address] [facility] Last Admin: 10/04/19 07:13 Dose: 250 mcg Documented by: Metformin HCl (Glucophage) [address] [facility] Last Admin: 10/03/19 09:46 Dose: 500 mg Documented by: Naloxone HCl (Narcan) 0.4 mg IV ONCE PRN PRN Reason: Opiate Reversal Prednisone (Prednisone) [address] [facility] Last Admin: 10/03/19 09:46 Dose: 20 mg Documented by: Promethazine HCl (Phenergan) 12.5 mg IV Q6HP PRN PRN Reason: Nausea And Vomiting Pyridostigmine [place] (Regonol) 10 mg SC Q6 [facility] Last Admin: 10/04/19 05:10 Dose: 10 mg Documented by: Sodium Chloride (Saline Flush) 10 ml IV UD PRN PRN Reason: FLUSH Sodium Chloride (Saline Flush) 10 ml IV Q12 [facility] Last Admin: 10/03/19 19:51 Dose: 10 ml Documented by: Tramadol HCl (Ultram) 50 mg PO Q6HP PRN PRN Reason: Pain Last Admin: 10/03/19 23:56 Dose: 50 mg Documented by: Vitamin D (Vitamin D3) 1,000 unit PO DAILY [facility] Last Admin: 10/03/19 09:46 Dose: 1,000 unit Documented by: - ABG Interpretation ABG results: 09/24/19 09/25/19 22:50 10:28 ABG Methemoglobin 0.2 L 0.3 L VBG pH 7.43 H 7.46 H VBG pCO2 37.9 L 38.0 L VBG pO2 126 H 71 H VBG HCO3 24.3 26.7 VBG Total CO2 25.5 27.8 VBG O2 Saturation 95.3 H 91.0 H VBG Base Excess 0 2.7 H Medical - PN: A/P - Time Spent With Patient Total time spent is greater than 50% in coordination of care (as documented) at patient's floor/unit and/or counseling patient: - Narrative A/P Narrative: A: *Acute hypoxic respiratory failure, s/p extubation on 16 -CXR - Mild bibasilar airspace disease more likely atelectasis than i nfiltrate. Improvement from plain film three days ago -Saturation good, on RM *ARDS/ALI: -Probably due to aspiration. Improved *Septic shock secondary to aspiration pneumonia, resolved * Hypokalemia/hypomagnesemia: resolved *DM II: *Chronic abdominal pain: *h/o Recurrent SBO: *Morbid obesity: *Myasthenia gravis: On prednisone 20 mg daily at baseline, Continue pyridostig mine *h/o panhypopituitarism: was on stressed-doses corticosteroids temporarily *HTN: On lisinopril P: -finished course of Abx -Pulmonary toilet -SSI, lantus, metformin -cont home prednisone and thyroxine -diet/TPN per surgery -pt/ot -ppx: heparin full code Medical - PN: Qual - VTE Deep Vein Thrombosis/Pulmonary Embolism Present on Admission: No
[2019-10-04] MEDS: CALCITRIOL 0.25 MCG CAPSULE PO SCH ×3 (08:40→20:59)
[2019-10-04] MEDS: VITAMIN D3 1,000 UNIT TABLET PO SCH (08:41)
[2019-10-04] MEDS: predniSONE 20 MG TABLET PO SCH (08:41)
[2019-10-04] MEDS: HEPARIN 5,000 UNIT/ML VIAL SQ SCH ×2 (08:41→21:00)
[2019-10-04] MEDS: metFORMIN 500 MG TABLET PO SCH (08:41)
[2019-10-04] MEDS: DULoxetine 30 MG CAPSULE PO SCH ×2 (08:41→20:59)
[2019-10-04] MEDS: CYCLOBENZAPRINE 10 MG TABLET PO SCH ×3 (08:41→20:59)
[2019-10-04] MEDS: CALCIUM CARBONATE 1,250 MG/5 ML ORAL.SUSP PO SCH ×2 (08:42→21:00)
[2019-10-04] MEDS: INSULIN GLARGINE, HUMAN 1 UNIT/0.01 ML SQ SCH (08:42)
[2019-10-04] MEDS: 0.9 % SODIUM CHLORIDE 10 ML SYRINGE IV SCH ×2 (08:42→21:00)
[2019-10-04] MEDS: traMADol 50 MG TABLET PO PRN ×2 (08:50→20:59)
[2019-10-04] MEDS: HYDROmorphone 2 MG/ML VIAL IV PRN ×2 (10:14→15:17)
--- NOTE | 2019-10-04 11:36 | General Surgery Progress Note ---
Subjective Patient reports: no new complaints, tolerating a regular diet, bowel movement, afebrile Narrative: Note initiated : 10/04/19 at 11:34 am Service Date, if different from initiated Date: [] Patient: Dayanna Stephens 58 y/o F admitted on 09/22/19 for NAUSEA AND VOMITING. Chief Complaint: [] No new event overnight. Up in chair today - feeling slightly stronger. Discussed goal of SNF and may be ready tomorrow depending her PT evaluation & strength. Eating OK. Ready to get mitchell out. Pertinent ROS: nothing new from yesterday Additional PMFSH (Level 3 Only): no changes Objective Temp Pulse Resp BP Pulse Ox 98.0 F 88 20 130/83 90 10/04/19 09:29 10/04/19 08:00 10/04/19 08:00 10/04/19 09:29 10/04/19 09:29 - Additional Data Intake & Output - Last 24 hours: Intake & Output 10/02/19 10/03/19 10/04/19 10/05/19 05:59 05:59 05:59 05:59 Intake Total 490 3468 900 Output Total 2800 1850 1130 Balance -2310 1618 -230 Weight 228 lb 8 oz 228 lb 222 lb 12.8 oz - General physical appearance no distress, no pain, chronically ill, obese - Eyes PERRL - ENT normal mucosa - Neck no masses, no bruits, trachea midline, no lymphadenopathy, no venous distension - Respiratory other (distant BS, more clear, decent effort & excusion) - Cardiovascular Cardiovascular exam: Present: normal rate and rhythm - Abdomen soft, non tender, bowel sounds, surgical scars - Integumentary no rash - Neurologic normal coordination, normal sensation - Musculoskeletal normal posture - Labs 10/04/19 04:39 10/03/19 04:42 Assessment and Plan (1) Nausea and vomiting Status: Acute Assessment and plan: no changes Current Visit: Yes (2) Recurrent abdominal pain Status: Acute Current Visit: Yes (3) Lactic acid acidosis Status: Acute Current Visit: Yes (4) Sinus tachycardia Status: Acute Current Visit: Yes (5) UTI (urinary tract infection) Status: Acute Current Visit: Yes (6) Sepsis Status: Acute Assessment and plan: WBC is up Cultures ordered No change in CXR On aspiration AB Current Visit: Yes (7) Dehydration Status: Acute Current Visit: Yes (8) Small bowel obstruction Status: Acute Current Visit: Yes - Narrative A/P Narrative: Will allow nurse to try & get mitchell out today DC planning and hopefully disposition tomorrow on same meds - Time Spent With Patient Total time spent is greater than 50% in coordination of care (as documented) at patient's floor/unit and/or counseling patient: 25 - 35 minutes
[2019-10-05] MEDS: PYRIDOSTIGMINE BROMIDE 10 MG/2 ML ML SC SCH ×3 (00:18→11:56)
[2019-10-05] MEDS: ACETAMINOPHEN 325 MG TABLET PO PRN ×2 (00:22→09:16)
--- NOTE | 2019-10-05 07:08 | Internal Med Progress Note ---
Medical - PN: Subj Patient information: Note initiated : 10/05/19 at 7:08 am Service Date, if different from initiated Date: [] Patient: Dayanna Setphens a 58 y/o F admitted on 09/22/19 for NAUSEA AND VOMITING. Chief Complaint: [] Interval history: Ms. Stephens is a 58 year old morbidly obese F with a complex medical history of parathyroidism , chronic hypocalcemia, polyglandular syndrome, sarcoidosis, myasthenia gravis and multiple bowel obstruction/abdominal surgeries with colostomy who underwent recent hospitalization at [facility] following a bowel obstruction and underwent surgery x2 between August 16 in September 21. Patient was discharged to care center however due to worsening abdominal pain and nausea vomiting she was admitted on 09/23 under surgical service for management of bowel obstruction. She underwent NG decompression. Early this morning patient was found to be increasingly dyspneic with sats in mid 60s following episode of nausea and large emesis. Patient was evaluated by surgery and underwent intubation due to profound hypoxia and was initiated on mechanical ventilation. Systolics was around 80 and was started on Levophed after crystalloid boluses. Subsequently hospitalist service was consulted for management of mechanical ventilation and shock/hypoxic respiratory failure At the time evaluation patient is on mechanical ventilation. Family members are present. Most of the history is obtained from review of medical records and Dr. Currie surgeon Patient has an ostomy which was noted to be draining copious amount of liquid output She is febrile at 101.1. Is currently on vasopressors at 10 mics. She received 3 L of crystalloids. Martinez is draining dark urine. Right subclavian central line was secured by anesthesia. Initial blood gas 7.35/40 2/64 on 70% FiO2 PEEP 5, plateau pressure 23 peak pressure 12, tidal volume 450 rate 14. 12/13-patient remains critically ill on mechanical ventilation. Copious NG output. Patient responding to commands. Started on stress dose hydrocortisone in the setting of myasthenia and previously being on prednisone. Off pressors. Map at goal. ABG reviewed 7.42/34/56. Interval chest imaging slightly improv ed however on PEEP 8/FiO2 50% with large AA gradient and PaO2 FiO2 ratio around 100. Patient will be a difficult candidate for ventilator weaning in the setting of myasthenia and morbid obesity with ALI/early ARDS picture. White count 17.5, central venous oxygen sat 95, urine output 30 cc an hour. Net 6500 cc positive fluid balance in the last 24 hours. Continue Zosyn. [place] II score 21 09/26-hemoglobin down to 6.7. 2 units PRBC transfusion. No obvious source of bleed. White count down from 17.5-9.3. Potassium down to 3 on replacement. Off vasopressors. PEEP 8 FiO2 50%. Diuresing well. Lower total fluid infusion to 100 cc an hour cumulative including TPN. Initiate gentle diuresis to optimize lung compliance in anticipation of extubation. Improving AA gradient/PaO2 FiO2 ratio. Await interval chest imaging/blood gas. Anticipate extubation in the next 24 to 48 hours. Will require careful evaluation of RSBI/NIF/plateau pressures/pulmonary compliance in the setting of myasthenia for successful extubation. NG output 250 cc overnight bilious 09/27-her vital signs are maintained her ABG showing improvement in oxygenation and we decrease her PEEP to 6 and once her oxygenation maintained we will try to titrate down the FiO2 and will plan for sedation vacation. Dr. Currie ordered diuresis and agreed with the plan. Hemoglobin is 9.3 no evidence of any acute bleed. She has underlying history of myasthenia gravis which makes extubation difficult. She was opening her eyes even while on sedation which is a good sign. Improving the AA gradient and acute lung injury. She continues to have significant output on suctioning with a ananda material. 09/28-patient was on sedation vacation since this morning and she is doing well and we put her on spontaneous breathing trials and she did well and did an ABG which was within normal limits and her rapid shallow breathing index was within normal limits patient was off of sedation completely not on any sedatives or mu scle relaxants and she was extubated successfully and post extubation patient is doing well she was on 2 L of nasal cannula oxygen. Surgical team evaluated the patient and recommended clear liquid diet. Patient progressed well today and will use incentive spirometer. 09/29-post extubation patient is doing great she is tolerating clear liquid diet and she is also on TPN her diet can be advanced and will await further surgical recommendations. Respiratory failure improved and will try weaning her off of oxygen. I encourage her to use incentive spirometer. Continue broad-spectrum antibiotic for now which can be changed to p.o. Augmentin upon discharge for total 10 days 09/30-patient spiked fever last night and received 2 dose of Tylenol ordered a set of blood culture, ordered a urine analysis-urine no signs of UTI. Patient has severe atelectasis and she is not using incentive spirometer. Atelectasis could be the reason for her fever and she also has Mitra albicans growing in her sputum culture and given single dose of fluconazole IV 200 mg. I encouraged the patient to use I-S and if she continued having fever we should repeat a CT scan of her chest and abdomen to look for any abscess or source of infection or empyema. Otherwise I continued Zosyn but if she spikes fever again I recommend adding vancomycin and ordering CT scan. 10/01 The patient no longer has fever and feels fine. Denies headache, dizziness, fever, or chills. Patient has a good output through her stoma. AXR - Decompressed GI tract. 10/02 The patient no longer has fever and feels fine. Denies headache, dizziness, fever, or chills. Patient has a good output through her stoma. But this morning she complains of dark-brownish sputum No overnight events 10/03 The patient no longer has fever and feels fine. Her sputum became blast furnace helper. Denies headache, dizziness, fever, or chills. Patient has a good output through her stoma, about 500ml yesterday HR is high at times. WBC trending up to 15.2 today from 11.5 yesterday No overnight events 10/04 Continues to gradually feel better. Has cough with sputum production, decreased shortness of breath. Good output through her stoma. Slept well and no new complaints. 10/05 Complains of chronic pain but otherwise no new overnight events. Review of Systems: denies headache/fever/chills/nausea/vomiting/. Otherwise see above. - Constitutional Vitals: Vital Signs Temp Pulse Resp BP Pulse Ox 97.7 F 94 H 16 133/87 90 10/05/19 04:00 10/05/19 04:00 10/05/19 04:00 10/05/19 04:00 10/05/19 04:00 Period Temp Pulse Resp BP Sys/[place] Pulse Ox Last 24 Hr 97.5 F-98.9 F 72-99 - 121-133/74-87 90-97 Intake and Output 10/04/19 10/05/19 10/05/19 21:59 05:59 13:59 Intake Total 480 650 Output Total 1250 575 Balance -770 75 Weight 101.831 kg Intake & Output: Intake & Output 10/04/19 10/05/19 10/05/19 21:59 05:59 13:59 Intake Total 480 650 Output Total 1250 575 Balance -770 75 Weight 101.831 kg Intake: Oral 480 650 Output: Urine Catheter Amount 900 Void Amount 350 300 Stool 275 Other: Meal Lunch Percent of Meal Consumed 75% Feeding Ability Independent Urine Appearance Cloudy Urine Color Dark Yellow Urine Odor Normal Stool Size Moderate Stool Color Brown Stool Consistency Liquid Loose # Bowel Movements 1 Exam: General: Alert, Awake, No acute Distress, obese Eyes/N/T: EOMI, Head/Neck: neck supple, normocephalic atraumatic CV: RRR, No murmurs, Pulm: Clear b/l, no wheezing/rhonchi/rales Abd: mild tenderness, +BS x4, colostomy in place Ext: no clubbing/cyanosis/edema Neuro: Alert, no focal deficits, moves all extremities, Skin: warm/dry Medical - PN: Obj Da - Labs CBC & Chem 7: 10/04/19 04:39 10/03/19 04:42 Labs: Abnormal Lab Results 10/04/19 10/03/19 10/03/19 04:39 04:42 04:42 WBC 12.4 H 15.2 H Hgb 11.5 L Hct 35.9 L RDW 19.0 H 17.5 H MPV 7.2 L Gran # 9.4 H 11.2 H [place] # (Auto) 1.0 H Carbon Dioxide 20 L BUN 28 H Creatinine 0.5 L Glucose Uric Acid Calcium 8.2 L GGT AST 51 H ALT 78 H Alkaline Phosphatase 203 H Triglycerides 10/02/19 04:50 WBC Hgb Hct RDW MPV Gran # [place] # (Auto) Carbon Dioxide BUN 30 H Creatinine 0.5 L Glucose 172 H Uric Acid 1.5 L Calcium 7.9 L GGT 112 H AST ALT 43 H Alkaline Phosphatase 197 H Triglycerides 469 H Meds: Medications Acetaminophen (Tylenol) 650 mg PO Q6HP PRN PRN Reason: PAIN/FEVER > 101 Last Admin: 10/05/19 00:22 Dose: 650 mg Documented by: Calcitriol (Rocaltrol) 0.25 mcg PO TID PENDING SALE TO [facility] Last Admin: 10/04/19 20:59 Dose: 0.25 mcg Documented by: Calcium Carbonate/Glycine (Calcium Carbonate) 1,200 mg PO BID PENDING SALE TO [facility] Last Admin: 10/04/19 21:00 Dose: 1,200 mg Documented by: Cyclobenzaprine HCl (Flexeril) 10 mg PO TID PENDING S[facility] TO [facility] Last Admin: 10/04/19 20:59 Dose: 10 mg Documented by: Dextrose (Dextrose 50%) 0 ml IV UD PRN PRN Reason: Hypoglycemia Diagnostic Test (Pha) (Accu-Chek) 1 each FS [facility] Last Admin: 10/04/19 21:05 Dose: 1 each Documented by: Duloxetine HCl (Cymbalta) 30 mg PO BID [facility] Last Admin: 10/04/19 20:59 Dose: 30 mg Documented by: Glucose (Insta-Glucose) 15 gm PO PRN PRN PRN Reason: Hypoglycemia Heparin Sodium (Porcine) (Heparin) 5,000 unit SQ Q12 [facility] Last Admin: 10/04/19 21:00 Dose: 5,000 unit Documented by: Hydromorphone HCl (Dilaudid) 1 mg IV Q4HP PRN; Protocol PRN Reason: Per Pain Protocol Last Admin: 10/04/19 15:17 Dose: 1 mg Documented by: Insulin Glargine (Lantus) 5 unit SQ DAILY [facility] Last Admin: 10/04/19 08:42 Dose: 5 unit Documented by: Insulin Human Lispro (Humalog) 0 unit SQ [facility]; Protocol Last Admin: 10/04/19 21:06 Dose: 3 units Documented by: Levothyroxine Sodium (Synthroid) 250 mcg PO [facility] Last Admin: 10/04/19 07:13 Dose: 250 mcg Documented by: Metformin HCl (Glucophage) 500 mg PO [facility] Last Admin: 10/04/19 08:41 Dose: 500 mg Documented by: Naloxone HCl (Narcan) 0.4 mg IV ONCE PRN PRN Reason: Opiate Reversal Prednisone (Prednisone) 20 mg PO [facility] Last Admin: 10/04/19 08:41 Dose: 20 mg Documented by: Promethazine HCl (Phenergan) 12.5 mg IV Q6HP PRN PRN Reason: Nausea And Vomiting Pyridostigmine [place] (Regonol) 10 mg SC Q6 [facility] Last Admin: 10/05/19 05:54 Dose: 10 mg Documented by: Sodium Chloride (Saline Flush) 10 ml IV UD PRN PRN Reason: FLUSH Sodium Chloride (Saline Flush) 10 ml IV Q12 [facility] Last Admin: 10/04/19 21:00 Dose: 10 ml Documented by: Tramadol HCl (Ultram) 50 mg PO Q6HP PRN PRN Reason: Pain Last Admin: 10/04/19 20:59 Dose: 50 mg Documented by: Vitamin D (Vitamin D3) 1,000 unit PO DAILY [facility] Last Admin: 10/04/19 08:41 Dose: 1,000 unit Documented by: - ABG Interpretation ABG results: 09/24/19 09/25/19 22:50 10:28 ABG Methemoglobin 0.2 L 0.3 L VBG pH 7.43 H 7.46 H VBG pCO2 37.9 L 38.0 L VBG pO2 126 H 71 H VBG HCO3 24.3 26.7 VBG Total CO2 25.5 27.8 VBG O2 Saturation 95.3 H 91.0 H VBG Base Excess 0 2.7 H Medical - PN: A/P - Time Spent With Patient Total time spent is greater than 50% in coordination of care (as documented) at patient's floor/unit and/or counseling patient: - Narrative A/P Narrative: A: *Acute hypoxic respiratory failure, s/p extubation on -CXR - Mild bibasilar airspace disease more likely atelectasis than infiltrate. Improvement from plain film three days ago -Saturation good, on RM *ARDS/ALI: -Probably due to aspiration. Improved *Septic shock secondary to aspiration pneumonia, resolved * Hypokalemia/hypomagnesemia: resolved *DM II: *Chronic abdominal pain: *h/o Recurrent SBO: *Morbid obesity: *Myasthenia gravis: On prednisone 20 mg daily at baseline, Continue pyridostigmine *h/o panhypopituitarism: was on stressed-doses corticosteroids temporarily *HTN: On lisinopril P: -finished course of Abx -Pulmonary toilet -SSI, lantus, metformin -cont home prednisone and thyroxine -diet per surgery -pt/ot -ppx: heparin full code Medical - PN: Qual - VTE Deep Vein Thrombosis/Pulmonary Embolism Present on Admission: No
[2019-10-05] MEDS: traMADol 50 MG TABLET PO PRN (07:13)
[2019-10-05] MEDS: LEVOTHYROXINE 125 MCG TABLET PO SCH (07:14)
[2019-10-05] MEDS: INSULIN LISPRO 1 UNIT/0.01 ML UNIT SQ SCH ×2 (07:18→11:55)
[2019-10-05] MEDS: predniSONE 20 MG TABLET PO SCH (09:15)
[2019-10-05] MEDS: CALCIUM CARBONATE 1,250 MG/5 ML ORAL.SUSP PO SCH (09:15)
[2019-10-05] MEDS: DULoxetine 30 MG CAPSULE PO SCH (09:15)
[2019-10-05] MEDS: CYCLOBENZAPRINE 10 MG TABLET PO SCH (09:15)
[2019-10-05] MEDS: VITAMIN D3 1,000 UNIT TABLET PO SCH (09:15)
[2019-10-05] MEDS: CALCITRIOL 0.25 MCG CAPSULE PO SCH (09:15)
[2019-10-05] MEDS: metFORMIN 500 MG TABLET PO SCH (09:15)
[2019-10-05] MEDS: HEPARIN 5,000 UNIT/ML VIAL SQ SCH (09:16)
[2019-10-05] MEDS: INSULIN GLARGINE, HUMAN 1 UNIT/0.01 ML SQ SCH (09:16)
[2019-10-05] MEDS: 0.9 % SODIUM CHLORIDE 10 ML SYRINGE IV SCH (09:18)
--- NOTE | 2019-10-05 12:21 | General Surgery Progress Note ---
Subjective Patient reports: no new complaints, feels better, still having pain, tolerating a regular diet, voiding w/o difficulty Narrative: Note initiated : 10/05/19 at 12:19 pm Service Date, if different from initiated Date: [] Patient: Dayanna Stephens a 58 y/o F admitted on 09/22/19 for NAUSEA AND VOMITING. Chief Complaint: [] No changes overnight - finished AB - mitchell out. Will also get central line out. Plans for [facility] transfer waiting on insurance. Pertinent ROS: no changes from prior notes Additional PMFSH (Level 3 Only): no changes Objective Temp Pulse Resp BP Pulse Ox 97.9 F 79 18 110/72 86 L 10/05/19 08:00 10/05/19 08:00 10/05/19 08:00 10/05/19 08:00 10/05/19 08:00 - Additional Data Intake & Output - Last 24 hours: Intake & Output 10/03/19 10/04/19 10/05/19 10/06/19 05:59 05:59 05:59 05:59 Intake Total 3468 900 1130 Output Total 1850 1130 1825 Balance 1618 230 -695 Weight 228 lb 222 lb 12.8 oz 224 lb 8 oz - General physical appearance no pain, chronically ill, obese - Eyes normal ocular movement - ENT normal mucosa - Neck no masses, no bruits, trachea midline, no lymphadenopathy, no venous distension - Respiratory other (distant BS, clear with decent excusion) - Cardiovascular Cardiovascular exam: Present: normal rate and rhythm - Abdomen soft, non tender, bowel sounds, surgical scars - Integumentary no rash - Neurologic normal coordination, normal sensation - Musculoskeletal other (up OOB on own now ) - Psychiatric oriented to time, oriented to person, oriented to place, speech is normal, memory intact - Labs 10/04/19 04:39 10/03/19 04:42 Assessment and Plan (1) Nausea and vomiting Status: Acute Assessment and plan: no changes Waiting on dispostion for DC Will need some Hydrocodone at SNF along with her regular meds Current Visit: Yes (2) Recurrent abdominal pain Status: Acute Current Visit: Yes (3) Lactic acid acidosis Status: Acute Current Visit: Yes (4) Sinus tachycardia Status: Acute Current Visit: Yes (5) UTI (urinary tract infection) Status: Acute Current Visit: Yes (6) Sepsis Status: Acute Assessment and plan: WBC is up Cultures ordered No change in CXR On aspiration AB Current Visit: Yes (7) Dehydration Status: Acute Current Visit: Yes (8) Small bowel obstruction Status: Acute Current Visit: Yes - Time Spent With Patient Total time spent is greater than 50% in coordination of care (as documented) at patient's floor/unit and/or counseling patient:
--- NOTE | 2019-10-05 13:15 | Discharge Summary ---
Providers - Providers Patient information: Note initiated : 10/05/19 at 1:14 pm Service Date, if different from initiated Date: [] Patient: Dayanna Stephens a 58 y/o F admitted on 09/22/19 for NAUSEA AND VOMITING. Chief Complaint: [] Date of admission: 09/22/19 Discharge date: 10/05/19 Attending physician: Bertha Currie Hospitalization Hospital Course: Ms. Stephens is a 58 year old morbidly obese F with a complex medical history of parathyroidism , chronic hypocalcemia, polyglandular syndrome, sarcoidosis, myasthenia gravis and multiple bowel obstruction/abdominal surgeries with colostomy who underwent recent hospitalization at [facility] following a bowel obstruction and underwent surgery x2 between August 16 in September 21. Patient was discharged to [facility] however due to worsening abdominal pain and nausea vomiting she was admitted on 09/23 under surgical service for management of bowel obstruction. She underwent NG decompression. Early this morning patient was found to be increasingly dyspneic with sats in mid 60s following episode of nausea and large emesis. Patient was evaluated by surgery and underwent intubation due to profound hypoxia and was initiated on mechanical ventilation. Systolics was around 80 and was started on Levophed after crystalloid boluses. Subsequently hospitalist service was consulted for management of mechanical ventilation and shock/hypoxic respiratory failure At the time evaluation patient is on mechanical ventilation. Family members are present. Most of the history is obtained from review of medical records and Dr. Currie surgeon Patient has an ostomy which was noted to be draining copious amount of liquid output She is febrile at 101.1. Is currently on vasopressors at 10 mics. She received 3 L of crystalloids. Martinez is draining dark urine. Right subclavian central line was secured by anesthesia. Initial blood gas 7.35/40 2/64 on 70% FiO2 PEEP 5, plateau pressure 23 peak pressure 12, tidal volume 450 rate 14. 12/13-patient remains critically ill on mechanical ventilation. Copious NG output. Patient responding to commands. Started on stress dose hydrocortisone in the setting of myasthenia and previously being on prednisone. Off pressors. Map at goal. ABG reviewed 7.42/34/56. Interval chest imaging slightly improved however on PEEP 8/FiO2 50% with large AA gradient and PaO2 FiO2 ratio around 100. Patient will be a difficult candidate for ventilator weaning in the setting of myasthenia and morbid obesity with ALI/early ARDS picture. White count 17.5, central venous oxygen sat 95, urine output 30 cc an hour. Net 6500 cc positive fluid balance in the last 24 hours. Continue Zosyn. [place] II score 21 09/26-hemoglobin down to 6.7. 2 units PRBC transfusion. No obvious source of bleed. White count down from 17.5-9.3. Potassium down to 3 on replacement. Off vasopressors. PEEP 8 FiO2 50%. Diuresing well. Lower total fluid infusion to 100 cc an hour cumulative including TPN. Initiate gentle diuresis to optimize lung compliance in anticipation of extubation. Improving AA gradient/PaO2 FiO2 ratio. Await interval chest imaging/blood gas. Anticipate extubation in the next 24 to 48 hours. Will require careful evaluation of RSBI/NIF/plateau pressures/pulmonary compliance in the setting of myasthenia for successful extubation. NG output 250 cc overnight bilious 09/27-her vital signs are maintained her ABG showing improvement in oxygenation and we decrease her PEEP to 6 and once her oxygenation maintained we will try to titrate down the FiO2 and will plan for sedation vacation. Dr. Currie ordered diuresis and agreed with the plan. Hemoglobin is 9.3 no evidence of any acute bleed. She has underlying history of myasthenia gravis which makes extubation difficult. She was opening her eyes even while on sedation which is a good sign. Improving the AA gradient and acute lung injury. She continues to have significant output on suctioning with a ananda material. 09/28-patient was on sedation vacation since this morning and she is doing well and we put her on spontaneous breathing trials and she did well and did an ABG which was within normal limits and her rapid shallow breathing index was within normal limits patient was off of sedation completely not on any sedatives or muscle relaxants and she was extubated successfully and post extubation patient is doing well she was on 2 L of nasal cannula oxygen. Surgical team evaluated the patient and recommended clear liquid diet. Patient progressed well today and will use incentive spirometer. 09/29-post extubation patient is doing great she is tolerating clear liquid diet and she is also on TPN her diet can be advanced and will await further surgical recommendations. Respiratory failure improved and will try weaning her off of oxygen. I encourage her to use incentive spirometer. Continue broad-spectrum antibiotic for now which can be changed to p.o. Augmentin upon discharge for total 10 days 09/30-patient spiked fever last night and received 2 dose of Tylenol ordered a set of blood culture, ordered a urine analysis-urine no signs of UTI. Patient has severe atelectasis and she is not using incentive spirometer. Atelectasis could be the reason for her fever and she also has Mitra albicans growing in her sputum culture and given single dose of fluconazole IV 200 mg. I encouraged the patient to use I-S and if she continued having fever we should repeat a CT scan of her chest and abdomen to look for any abscess or source of infection or empyema. Otherwise I continued Zosyn but if she spikes fever again I recommend adding vancomycin and ordering CT scan. 10/01 The patient no longer has fever and feels fine. Denies headache, dizziness, fever, or chills. Patient has a good output through her stoma. AXR - Decompressed GI tract. 10/02 The patient no longer has fever and feels fine. Denies headache, dizziness, fever, or chills. Patient has a good output through her stoma. But this morning she complains of dark-brownish sputum No overnight events 10/03 The patient no longer has fever and feels fine. Her sputum became product examiner. Denies headache, dizziness, fever, or chills. Patient has a good output through her stoma, about 500ml yesterday HR is high at times. WBC trending up to 15.2 today from 11.5 yesterday No overnight events 10/04 Continues to gradually feel better. Has cough with sputum production, decreased shortness of breath. Good output through her stoma. Slept well and no new complaints. 10/05 Complains of chronic pain but otherwise no new overnight events. Discharge diagnosis: colonic pseudo-obstruction Secondary discharge diagnosis: *Acute hypoxic respiratory failure, s/p extubation on -CXR - Mild bibasilar airspace disease more likely atelectasis than infiltrate. Improvement from plain film three days ago -Saturation good, on RM *ARDS/ALI: -Probably due to aspiration. Improved *Septic shock secondary to aspiration pneumonia, resolved * Hypokalemia/hypomagnesemia: resolved *DM II: *Chronic abdominal pain: *h/o Recurrent SBO: *Morbid obesity: *Myasthenia gravis: On prednisone 20 mg daily at baseline, Continue pyridostigmine *h/o panhypopituitarism: was on stressed-doses corticosteroids temporarily *HTN: On lisinopril Reason for admission: Ms. 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 Procedures: Intubation R subclavian central line Complications: see hospitalization summary Exam Temp Pulse Resp BP Pulse Ox 97.9 F 79 18 110/72 86 L 10/05/19 08:00 10/05/19 08:00 10/05/19 08:00 10/05/19 08:00 10/05/19 08:00 - General physical appearance no pain, chronically ill, obese - Eyes PERRL, normal ocular movement - ENT normal mucosa - Neck no masses, no bruits, trachea midline, no lymphadenopathy, no venous distension - Cardiovascular Cardiovascular exam IM: Present: normal rate and rhythm - Respiratory other (distant BS, clear, decent excusion) - Abdomen Abdomen: Present: soft, non tender, bowel sounds (multiple scars, ostomy), surgical scars - Integumentary Present: no rash, no growths, no abnormal pigmentation - Neurologic Present: normal coordination, normal sensation - Musculoskeletal Present: normal posture, other (generalized weakness) - Psychiatric Present: oriented to time, oriented to person, oriented to place, speech is normal, memory intact Discharge Plan - Patient/Caregiver Discharge Instructions Discharge Summary: To SNF for continued strengthening & rehab with eventual goal to return to home Activity: as per physical therapy Diet: Regular Diet Additional Instructions: PT & OT consults at SNF Activity: as per physical therapy Diet: Regular Diet Prescriptions: HYDROcodone/APAP 5/325MG [[place] 5-325Mg] 1 tab PO Q6HP PRN #50 tablet PRN Reason: Pain - Follow up Plan Disposition: Xfer SNF Care Plan Goals: home after SNF Plan of Treatment: To SNF Health Concerns: multiple Prognosis: Fair Rehab Potential: Fair I certify that the patient requires SNF services.: Yes (not able to do more than get out of bed independently) Overall status at discharge: patient is not back to baseline (needs more PT) Pending Studies Resuscitation Status Full Code Diet Consistent Carbohydrate Diet Start SatSep 29 1358 Acetaminophen (Tylenol) 650 mg PO Q6HP PRN PRN Reason: PAIN/FEVER > 101 Last Admin: 10/05/19 09:16 Dose: 650 mg Documented by: Admin: 10/05/19 00:22 Dose: 650 mg Documented by: SAL Calcitriol (Rocaltrol) 0.25 mcg PO TID [facility] Admin: 10/05/19 09:15 Dose: 0.25 mcg Documented by: Admin: 10/04/19 20:59 Dose: 0.25 mcg Documented by: Admin: 10/04/19 15:18 Dose: 0.25 mcg Documented by: Admin: 10/04/19 08:40 Dose: 0.25 mcg Documented by: Admin: 10/03/19 21:29 Dose: 0.25 mcg Documented by: Admin: 10/03/19 15:35 Dose: 0.25 mcg Documented by: Admin: 10/03/19 09:46 Dose: 0.25 mcg Documented by: Admin: 10/02/19 21:40 Dose: 0.25 mcg Documented by: Admin: 10/02/19 15:48 Dose: 0.25 mcg Documented by: VALERIA Calcium Carbonate/Glycine (Calcium Carbonate) 1,200 mg PO BID [facility] Admin: 10/05/19 09:15 Dose: 1,200 mg Documented by: Admin: 10/04/19 21:00 Dose: 1,200 mg Documented by: Admin: 10/04/19 08:42 Dose: 1,200 mg Documented by: Admin: 10/03/19 21:28 Dose: 1,200 mg Documented by: Admin: 10/03/19 09:45 Dose: 1,200 mg Documented by: Admin: 10/02/19 21:40 Dose: 1,200 mg Documented by: CEASAR Cyclobenzaprine HCl (Flexeril) 10 mg PO TID [facility] Admin: 10/05/19 09:15 Dose: 10 mg Documented by: Admin: 10/04/19 20:59 Dose: 10 mg Documented by: Admin: 10/04/19 15:18 Dose: 10 mg Documented by: Admin: 10/04/19 08:41 Dose: 10 mg Documented by: Admin: 10/03/19 21:29 Dose: 10 mg Documented by: Admin: 10/03/19 15:35 Dose: 10 mg Documented by: [email or web address] Admin: 10/03/19 09:46 Dose: 10 mg Documented by: Admin: 10/02/19 21:40 Dose: 10 mg Documented by: Admin: 10/02/19 15:49 Dose: 10 mg Documented by: VALERIA Diagnostic Test (Pha) (Accu-Chek) 1 each FS ACHS [facility] Admin: 10/05/19 11:55 Dose: 1 each Documented by: Admin: 10/05/19 07:14 Dose: 1 each Documented by: Admin: 10/04/19 21:05 Dose: 1 each Documented by: Admin: 10/04/19 16:54 Dose: 1 each Documented by: Admin: 10/04/19 11:29 Dose: 1 each Documented by: Admin: 10/04/19 07:17 Dose: 1 each Documented by: Admin: 10/03/19 20:37 Dose: 1 each Documented by: Admin: 10/03/19 17:49 Dose: 1 each Documented by: Admin: 10/03/19 12:00 Dose: 1 each Documented by: Admin: 10/03/19 07:56 Dose: 1 each Documented by: Admin: 10/02/19 23:39 Dose: 1 each Documented by: Admin: 10/02/19 17:34 Dose: 1 each Documented by: VALERIA Duloxetine HCl (Cymbalta) 30 mg PO BID [facility] Admin: 10/05/19 09:15 Dose: 30 mg Documented by: Admin: 10/04/19 20:59 Dose: 30 mg Documented by: Admin: 10/04/19 08:41 Dose: 30 mg Documented by: Admin: 10/03/19 21:29 Dose: 30 mg Documented by: Admin: 10/03/19 09:46 Dose: 30 mg Documented by: Admin: 10/02/19 21:40 Dose: 30 mg Documented by: CEASAR Heparin Sodium (Porcine) (Heparin) 5,000 unit SQ Q12 [facility] Last Admin: 10/05/19 09:16 Dose: 5,000 unit Documented by: Admin: 10/04/19 21:00 Dose: 5,000 unit Documented by: Admin: 10/04/19 08:41 Dose: 5,000 unit Documented by: Admin: 10/03/19 21:29 Dose: 5,000 unit Documented by: Admin: 10/03/19 09:46 Dose: 5,000 unit Documented by: Admin: 10/02/19 21:40 Dose: 5,000 unit Documented by: Admin: 10/02/19 09:28 Dose: 5,000 unit Documented by: Admin: 10/01/19 22:06 Dose: 5,000 unit Documented by: CEASAR Hydromorphone HCl (Dilaudid) 1 mg IV Q4HP PRN; Protocol PRN Reason: Per Pain Protocol Last Admin: 10/04/19 15:17 Dose: 1 mg Documented by: Admin: 10/04/19 10:14 Dose: 1 mg Documented by: Admin: 10/03/19 19:51 Dose: 1 mg Documented by: Admin: 10/03/19 15:35 Dose: 1 mg Documented by: Admin: 10/03/19 11:58 Dose: 1 mg Documented by: Admin: 10/03/19 07:28 Dose: 1 mg Documented by: Admin: 10/03/19 02:17 Dose: 1 mg Documented by: Admin: 10/02/19 21:48 Dose: 1 mg Documented by: Admin: 10/02/19 17:36 Dose: 1 mg Documented by: Admin: 10/02/19 13:22 Dose: 1 mg Documented by: Admin: 10/02/19 09:34 Dose: 1 mg Documented by: Admin: 10/02/19 00:01 Dose: 1 mg Documented by: CEASAR Insulin Glargine (Lantus) 5 unit SQ DAILY [facility] Last Admin: 10/05/19 09:16 Dose: 5 unit Documented by: Admin: 10/04/19 08:42 Dose: 5 unit Documented by: Admin: 10/03/19 09:46 Dose: 5 unit Documented by: Admin: 10/02/19 09:28 Dose: 5 unit Documented by: Admin: 10/01/19 11:42 Dose: 5 unit Documented by: MARIANA Insulin Human Lispro (Humalog) 0 unit SQ [facility]; Protocol Last Admin: 10/05/19 11:55 Dose: 6 units Documented by: Admin: 10/05/19 07:18 Dose: Not Given Documented by: Admin: 10/04/19 21:06 Dose: 3 units Documented by: Admin: 10/04/19 16:59 Dose: 6 units Documented by: Admin: 10/04/19 11:40 Dose: 6 units Documented by: Admin: 10/04/19 07:18 Dose: Not Given Documented by: Admin: 10/03/19 21:29 Dose: 3 units Documented by: Admin: 10/03/19 17:51 Dose: Not Given Documented by: Admin: 10/03/19 12:03 Dose: Not Given Documented by: Admin: 10/03/19 07:57 Dose: Not Given Documented by: VALERIA Levothyroxine Sodium (Synthroid) 250 mcg PO [facility] Last Admin: 10/05/19 07:14 Dose: 250 mcg Documented by: Admin: 10/04/19 07:13 Dose: 250 mcg Documented by: Admin: 10/03/19 07:53 Dose: 250 mcg Documented by: VALERIA Metformin HCl (Glucophage) 500 mg PO [facility] Last Admin: 10/05/19 09:15 Dose: 500 mg Documented by: Admin: 10/04/19 08:41 Dose: 500 mg Documented by: Admin: 10/03/19 09:46 Dose: 500 mg Documented by: VALERIA Prednisone (Prednisone) 20 mg PO [facility] Last Admin: 10/05/19 09:15 Dose: 20 mg Documented by: Admin: 10/04/19 08:41 Dose: 20 mg Documented by: Admin: 10/03/19 09:46 Dose: 20 mg Documented by: VALERIA Pyridostigmine [employer] (Regonol) 10 mg SC Q6 [facility] Last Admin: 10/05/19 11:56 Dose: 10 mg Documented by: Admin: 10/05/19 05:54 Dose: 10 mg Documented by: Admin: 10/05/19 00:18 Dose: 10 mg Documented by: Admin: 10/04/19 17:55 Dose: 10 mg Documented by: Admin: 10/04/19 13:26 Dose: 10 mg Documented by: Admin: 10/04/19 05:10 Dose: 10 mg Documented by: Admin: 10/03/19 23:49 Dose: 10 mg Documented by: Admin: 10/03/19 17:57 Dose: 10 mg Documented by: Admin: 10/03/19 11:57 Dose: 10 mg Documented by: Admin: 10/03/19 05:06 Dose: 10 mg Documented by: Admin: 10/03/19 00:30 Dose: 10 mg Documented by: Admin: 10/02/19 17:35 Dose: 10 mg Documented by: Admin: 10/02/19 12:06 Dose: 10 mg Documented by: Admin: 10/02/19 05:24 Dose: 10 mg Documented by: Admin: 10/01/19 23:52 Dose: 10 mg Documented by: Admin: 10/01/19 17:55 Dose: 10 mg Documented by: Admin: 10/01/19 12:41 Dose: 10 mg Documented by: MARIANA Sodium Chloride (Saline Flush) 10 ml IV Q12 [facility] Admin: 10/05/19 09:18 Dose: 10 ml Documented by: Admin: 10/04/19 21:00 Dose: 10 ml Documented by: Admin: 10/04/19 08:42 Dose: 10 ml Documented by: Admin: 10/03/19 19:51 Dose: 10 ml Documented by: Admin: 10/03/19 09:47 Dose: 10 ml Documented by: Admin: 10/03/19 02:17 Dose: 10 ml Documented by: Admin: 10/02/19 23:40 Dose: 10 ml Documented by: Admin: 10/02/19 09:37 Dose: 10 ml Documented by: Admin: 10/01/19 22:07 Dose: 10 ml Documented by: CEASAR Tramadol HCl (Ultram) 50 mg PO Q6HP PRN PRN Reason: Pain Last Admin: 10/05/19 07:13 Dose: 50 mg Documented by: Admin: 10/04/19 20:59 Dose: 50 mg Documented by: Admin: 10/04/19 08:50 Dose: 50 mg Documented by: Admin: 10/03/19 23:56 Dose: 50 mg Documented by: Admin: 10/03/19 17:57 Dose: 50 mg Documented by: Admin: 10/03/19 11:57 Dose: 50 mg Documented by: Admin: 10/03/19 05:05 Dose: 50 mg Documented by: Admin: 10/02/19 12:08 Dose: 50 mg Documented by: Admin: 10/01/19 18:43 Dose: 50 mg Documented by: CEASAR Vitamin D (Vitamin D3) 1,000 unit PO DAILY [facility] Last Admin: 10/05/19 09:15 Dose: 1,000 unit Documented by: Admin: 10/04/19 08:41 Dose: 1,000 unit Documented by: Admin: 10/03/19 09:46 Dose: 1,000 unit Documented by: VALERIA Shift Summary 10/05/19 02:44 Shift Summary by Saida Cohen [facility] 09/23/19 Ms. Stephens is a 58 year old F admitted with probable progression of chronic intestinal pseudoobstruction. Patient was recently discharged from [facility] in [place]. She presented there after transfer from our facility on 16 August 2019. She was found to have small bowel obstruction with sepsis and acidosis. She underwent laparoscopic lysis of adhesions and parastomal hernia repair. 20 August. She did not improve over the next 3 weeks and on 11 September underwent exploratory laparotomy with adhesion lysis small bowel resection and removal of mesh. She was discharged to nursing care facility 2 days ago had progressive nausea vomiting, severe abdominal pain. She was seen in the emergency room last evening and admitted with suspected exacerbation of her chronic intestinal pseudoobstruction. She will still having some output through her stoma at the time of admission but she has massively dilation of her stomach residual small bowel. She's been placed on nasogastric decompression and feels better. X-rays just showed diffuse dilation of stomach, small bowel, extending down to her stoma. Patient will need to have Gastrografin study and will be restarted on peripheral stigma therapy which has been effective. 09/24/19 Intubation and ICU 0400, VS obtained. BP noted at 77/46 HR 155-160 RA sats - 52%. RN and powerhouse attendant notified. 0405, Code White called. Dr Currie notified, orders for 2 L bolus of NS, Labs and BiPap and levophed gtt received. BiPap not placed d/t NG tube in place, Pt with active nausea and Plan for emergent intubation in place. 0411, 0.4 mg IV Narcan given rapid IV push. 0414 BP 136/110, HR 158, sats 71% on NRB flush. 09/28/19 Pt extubated, good cough effort, placed on 40% FiO2 aerosol mask, SpO2 stable at 95-97%. 10/01/19 Report given to GIOVANA Grider on med/surg and patient moved to medical room 111. All belongings accompanying her to new room. Initialized on 10/01/19 10:23 - END OF NOTE 10/04/19 Day shift A&O x4, CL to R subclavian quad lumen, does not aspirate but flushes well. Ostomy in place bag changed today. FC will be out this afternoon pt refused until after nap. Did get up to chair for 3 roger hours today 1 assist with PT pivot transfer from bed. Then needed "2 male" staff to get her back into bed pivot transfer. Received Dilaudid 1mg x2 today and Ultram x1 for c/o "5/10" pain to back. Will update at bedside. 10/04- campus recruiting internship Patient is up to BSC to void. Voiding QS. Pt is up with one assist and FWW. Pt has been medicated for pain alternating Tylenol and Ultram. Pt is a potential discharge to [facility] per [employer]. Unable to locate Case Management note that states discharge plan. Ostomy CDI not changed this shift. Liquid to loose output. Pt does most of her own cares with ostomy. Steri strip to midline abd. Will update with bedside report. Initialized on 10/05/19 02:44 - END OF NOTE
== END 2019-10-05 15:20 | DRG 391 ==
LOC: ED 19:47 → MEDSUR 23:45 → ICU 09-24 04:28 → MEDSUR 10-01 10:09
PROVIDERS: ADMIT Family Medicine Adult Medicine; ATTEND Surgery

== ENCOUNTER 2019-10-31 00:12 | Inpatient (IN) ==
[2019-10-31 00:39] LABS: POC Blood Urea Nitrogen 18 mg/dl (6-20); POC CO2 32 mmol/L (22-30); POC Calcium, Ionized 0.92 mmol/L (1.16-1.32); POC Chloride 96 mmol/L (96-108); POC Creatinine 0.7 mg/dl (0.6-1.1); POC Glucose, Random 202 mg/dL (70-105); POC Sodium 136 mmol/L (133-145)
[2019-10-31] MEDS ORDERED: 0.9 % SODIUM CHLORIDE 1,000 ML IV ONE ×2 (00:59→16:12)
[2019-10-31] MEDS ORDERED: PROMETHAZINE 25 MG/ML VIAL IV ONE (01:00)
[2019-10-31] MEDS ORDERED: HYDROmorphone 2 MG/ML VIAL IV ONE ×2 (01:03→02:52)
--- NOTE | 2019-10-31 01:05 | Emergency Department Note ---
Nausea/Vomiting/Diarrhea HPI - General Chief complaint: Nausea/Vomiting/Diarrhea Stated complaint: nausea, vomiting Time Seen by Provider: 10/31/19 00:19 Source: patient Mode of arrival: wheelchair Limitations: no limitations - History of Present Illness HPI Narrative: This 58-year-old female is here with her with abdominal pain and nausea and vomiting that began around 8:00 this evening. Just 3-1/2 weeks ago was admitted with a bowel obstruction. She is now having significant bloating. She normally has promethazine suppositories but ran out of these due to recently being in a prolonged medical stay 1 for a surgery and [facility] and then a revision of that and then follow-up at [facility]. She ended up returning to this hospital where she was admitted due to aspiration pneumonia and sepsis. 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 She has had some sweats with the vomiting but no fevers or chills. REVIEW OF SYSTEMS: Denies chest pain. Has had some cough. Some trace dysuria. Has some chronic lower and mid back discomforts. - Related Data Home Medications Medication Instructions Recorded Confirmed DULoxetine [Cymbalta] 30 mg PO BID 11/30/16 10/19/19 Levothyroxine [Synthroid] 250 mcg PO QAMAC 08/20/17 10/19/19 Polyethylene Glycol 3350 [Miralax] 17 gm PO DAILYP PRN 01/15/19 10/19/19 Calcitriol [Rocaltrol] 0.25 mcg PO TID 02/11/19 10/19/19 Omeprazole [Prilosec] 20 mg PO BID 02/11/19 10/19/19 B-D Syringe 3 mL 1 unit .ROUTE .MEDSUPPLY 09/30/19 10/19/19 Calcium Carbonate 1,200 mg PO BID 09/30/19 10/19/19 Insulin Glargine, Human [Lantus] 11 unit SQ DAILY 09/30/19 10/19/19 filter needles 19 x 1 1/2" 0 units .ROUTE .MEDSUPPLY 09/30/19 10/19/19 Previous Rx's Medication Instructions Recorded predniSONE [Prednisone] 20 mg PO [facility] #4 tab 05/18/16 metFORMIN HCL [Metformin HCl] 500 mg PO DAILY #30 tab 10/17/18 Promethazine [Phenergan] 25 mg PO Q6HP PRN #60 tab 02/13/19 cyclobenzaprine 10 mg tablet 10 mg PO TID #90 tab 04/17/19 Accu-Chek 1 each FS ACHS strip 10/05/19 Acetaminophen [Tylenol] 650 mg PO Q6HP PRN tab 10/05/19 Insulin Glargine, Human [Lantus] 5 unit SQ DAILY unit 10/05/19 traMADol [Ultram] 50 mg PO Q6HP PRN #40 tab 10/05/19 metoprolol succinate 25 mg 25 mg PO QDAY #30 tab 10/19/19 tablet,extended release 24 hr Allergies Allergy/AdvReac Type Severity Reaction Status Date / Time Sulfa (Sulfonamide Allergy Severe Anaphylaxis Verified 10/19/19 09:06 Antibiotics) adhesive tape AdvReac Mild Blister Verified 10/19/19 09:06 metoclopramide [From Reglan] AdvReac Mild Anxiety Verified 10/19/19 09:06 steri strips Allergy Severe Blister Uncoded 10/19/19 09:06 Past Medical History - Past Medical History [facility] Narrative: Medical History (Last Updated 10/31/19 @ 00:47 by Robb Goldberg DO) Chronic, continuous use of opioids (Chronic) Myasthenia gravis (Chronic) Obesity, Class II, BMI 35-39.9 (Chronic) LA (obstructive sleep apnea) (Chronic) Hypertension (Chronic) Diabetes mellitus type 2, uncontrolled (Chronic) Sinus tachycardia (Resolved) Chronic intestinal pseudo-obstruction (Chronic) Abdominal pain (Chronic) Recurrent intestinal obstruction (Chronic) Chronic use of steroids (Chronic) Abnormal liver enzymes (Chronic) Hypothyroidism (Chronic) Sarcoidosis (Chronic) Polyglandular autoimmune syndrome (Chronic) Recurrent abdominal pain (Chronic) Abdominal pain (Resolved) Abdominal wound dehiscence (Resolved) Achalasia and cardiospasm (Resolved) Acute respiratory insufficiency (Resolved) Adverse reaction to drug (Resolved) Anaphylaxis (Resolved) Bowel obstruction (Resolved) 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) Constipation due to neurogenic bowel (Resolved) Constipation due to pain medication therapy (Resolved) Dehydration (Resolved) Dehydration (Resolved) Encounter for care related to Port-a-Cath (Resolved) Fecal impaction (Resolved) Foot sprain (Resolved) Hypercalcemia (Resolved) Hypocalcemia (Resolved) Hyponatremia (Resolved) Ileus (Resolved) Infiltrate of lung present on imaging of chest (Resolved) Intractable vomiting (Resolved) Lactic acid acidosis (Resolved) Nausea (Resolved) Nausea & vomiting (Resolved) Nausea & vomiting (Resolved) Nausea and vomiting (Resolved) Obstruction of descending colon (Resolved) Pancreatitis (Resolved) Parastomal hernia with obstruction, without gangrene (Resolved) Partial intestinal obstruction, unspecified as to cause (Resolved) Pneumonia (Resolved) Primary chronic pseudo-obstruction of large intestine (Resolved) Pseudoobstruction of colon (Resolved) Pyelonephritis (Resolved) Sepsis (Resolved) Sepsis associated hypotension (Resolved) Sepsis with acute hypoxic respiratory failure (Resolved) Severe sepsis (Resolved) Sigmoid volvulus (Resolved) Small bowel obstruction (Resolved) Small bowel obstruction (Resolved) Small bowel obstruction (Resolved) Small bowel obstruction (Resolved) Small bowel obstruction (Resolved) Small bowel obstruction due to adhesions (Resolved) Small bowel obstruction due to postoperative adhesions (Resolved) Small bowel obstruction, partial (Resolved) Supraventricular tachycardia (Resolved) UTI (urinary tract infection) (Resolved) UTI (urinary tract infection) (Resolved) Volvulus of sigmoid colon (Resolved) Past Surgical History (Last Reviewed 10/19/19 @ 12:47 by Parviz Currie MD) History of exploratory laparotomy (Acute) History of exploratory laparotomy (Acute) History of exploratory laparotomy (Acute) History of exploratory laparotomy (Acute) S/P ileostomy (Resolved) Family History (Last Reviewed 10/19/19 @ 12:47 by Parviz Currie MD) Father CAD (coronary artery disease) Mother CAD (coronary artery disease) Grandfather CVA (cerebral vascular accident) Grandmother CVA (cerebral vascular accident) Medical history: Reports: COPD, hypertension, hypothyroidism, other (Myasthenia gravis). Denies: DVT, pulmonary embolus Psychiatric history: Reports: anxiety, depression TRAFFIC ENUMERATOR history: Reports: non-contributory Surgical history ED: Reports: colectomy, other (currently has an ileostomy to the right lower quadrant, numerous surgical revisions and scar tissue resection) - Social History smoking status: Former smoker Alcohol use: Reports: None Drug use: Reports: none. Denies: marijuana Physical Exam Limitations: no limitations General appearance: alert, in distress (Discomfort complaining of abdominal pain.), nontoxic, obese Head: atraumatic, normocephalic Eye: Present: EOMI ENT: Present: mucous membranes moist Neck: Present: trachea midline. Absent: lymphadenopathy, thyromegaly Chest: Present: symmetric chest wall rise Respiratory: Present: normal lung sounds bilaterally. Absent: respiratory distress, wheezes, stridor, accessory muscle use, prolonged expiratory phase Cardiovascular: Present: regular rate, normal rhythm. Absent: systolic murmur, diastolic murmur Abdominal: Present: soft, tenderness. Absent: distention, guarding, rebound, rigidity, organomegaly, mass Abdominal tenderness: Present: diffuse, moderate Extremities: Present: pretibial edema (minimal). Absent: cyanosis, clubbing Neurological: Present: alert, oriented X3 Psychiatric: Present: normal affect, normal mood Skin: Present: cool, dry Course Vital Signs Temperature 98.3 F 10/31/19 00:13 Pulse Rate 105 H 10/31/19 00:13 Respiratory Rate 18 10/31/19 00:13 Pulse Oximetry (%) 94 10/31/19 00:13 Temperature 98.3 F 10/31/19 00:13 Pulse Rate 108 H 10/31/19 01:02 Respiratory Rate 18 10/31/19 00:13 Blood Pressure 168/99 10/31/19 01:02 Pulse Oximetry (%) 90 10/31/19 01:02 Nausea/Vomiting/Diarrhea - [facility] Narrative Medical decision making narrative: 12:49 AM - longstanding problematic recurrent abdominal pain in this patient with significant history of procedures, imaging, work-ups, etc. In the past and we will try again today, promethazine IV, IV fluids, small dose or single dose of hydromorphone. 2:22 AM - labs come back unremarkable; minimally elevated white count, no change in other major parameters. Patient feels she can handle things at home and she will be discharged with prepack promethazine and will parts picker more tomorrow. 2:30 AM - on further review of her x-ray of the abdomen there are large dilated loops and air-fluid level suggestive of a rather severe small bowel obstruction. This is quite dramatically different than her recent 3 other abdominal x-rays done here. 2:35 AM - I spoke with Dr. Parviz Currie, general surgeon, regarding this with recommendation to keep her in the hospital, give IV fluids, nausea medications, pain medications,. Oxine 10 mg IM every 6 hours, use a nasogastric tube at moderate intermittent suction, etc. See transition orders. Dr. Currie kindly accepts this patient in transfer. - Lab Data Result diagrams: 10/31/19 00:29 10/31/19 00:29 Lab Results 10/31/19 10/31/19 Range/Units 00:29 00:29 WBC 13.1 H (4.50-11.00) K/mcL RBC 5.04 (3.59-5.38) M/mcL Hgb 14.2 (11.2-15.7) g/dL Hct 45.8 H (34.1-44.9) % POC Hct 46.0 (36.0-48.0) % MCV 90.9 (80.0-100.0) fL MCH 28.2 (26.0-34.0) pg MCHC 31.0 (31.0-36.0) g/dL RDW 19.0 H (11.5-14.5) % Plt Count 316 (140-440) K/mcL MPV 9.5 (7.4-10.4) fL Gran % 65.0 (38.0-78.0) % Lymph % (Auto) 27.3 (15.5-49.0) % White % (Auto) 6.9 (1.0-12.0) % Eos % (Auto) 0.4 (0.0-7.0) % Baso % (Auto) 0.4 (0.0-2.0) % Gran # 8.52 H (1.80-8.00) K/mcL Lymph # (Auto) 3.57 (1.50-4.80) K/mcL White # (Auto) 0.91 H (0.10-0.90) K/mcL Eos # (Auto) 0.05 (0.00-0.70) K/mcL Baso # (Auto) 0.05 (0.00-0.30) K/mcL POC Sodium 136 (133-145) mmol/L Sodium 135 (133-145) mmol/L POC Potassium 4.0 (3.3-5.1) mmol/L Potassium 4.0 (3.3-5.1) mmol/L POC Chloride 96 (96-108) mmol/L Chloride 90 L (96-108) mmol/L Carbon Dioxide 25 (22-30) mmol/L POC Total CO2 32 H (22-30) mmol/L Anion Gap 20.0 H (8-16) POC BUN 18 (6-20) mg/dl BUN 15 (6-20) mg/dl Creatinine 0.7 (0.6-1.1) mg/dl POC Creatinine 0.7 (0.6-1.1) mg/dl GFR Calculation 96 Glucose 205 H (70-105) mg/dL POC Glucose 202 H (70-105) mg/dL Calcium 9.1 (8.6-10.4) mg/dl POC WB Ioniz Calcium 0.92 L (1.16-1.32) mmol/L Total Bilirubin 0.2 (0.0-1.0) mg/dL AST 25 (0-37) U/l ALT 20 (0-40) U/l Alkaline Phosphatase 129 H (39-117) U/L C-Reactive Protein 4.8 H (0.0-0.8) mg/dl Total Protein 7.2 (5.9-8.4) gm/dL Albumin 3.5 (3.2-5.2) gm/dL Globulin 3.7 (2.2-3.7) gm/dL Albumin/Globulin Ratio 0.9 L (1.0-2.3) Disposition Pt seen by EDGING MACHINE SETTER/PA only: No Clinical Impression: Small bowel obstruction Abdominal pain Qualifiers: Abdominal location: generalized Qualified Code(s): R10.84 - Generalized abdominal pain Disposition: Xfer As Outpt/Obs ([facility] [place]) Referrals: Douglas Haque MD [Primary Care Provider] -
[2019-10-31 01:16] LABS: Basophils # (Auto) 0.05 K/mcL (0.00-0.30); Basophils % (Auto) 0.4 % (0.0-2.0); Eosinophils # (Auto) 0.05 K/mcL (0.00-0.70); Eosinophils % (Auto) 0.4 % (0.0-7.0); Hematocrit 45.8 % (34.1-44.9); Hemoglobin 14.2 g/dL (11.2-15.7); Lymphocytes # (Auto) 3.57 K/mcL (1.50-4.80); Lymphocytes % (Auto) 27.3 % (15.5-49.0); Mean Cell Volume 90.9 fL (80.0-100.0); Mean Platelet Volume 9.5 fL (7.4-10.4); Monocytes # (Auto) 0.91 K/mcL (0.10-0.90); Monocytes % (Auto) 6.9 % (1.0-12.0); Platelet Count 316 K/mcL (140-440); RBC 5.04 M/mcL (3.59-5.38); WBC 13.1 K/mcL (4.50-11.00)
[2019-10-31 01:25] LABS: ALT/SGPT 20 U/l (0-40); AST/SGOT 25 U/l (0-37); Albumin 3.5 gm/dL (3.2-5.2); Albumin/Globulin Ratio 0.9 (1.0-2.3); Alkaline Phosphatase 129 U/L (39-117); Bilirubin,Total 0.2 mg/dL (0.0-1.0); Blood Urea Nitrogen 15 mg/dl (6-20); C-Reactive Protein 4.8 mg/dl (0.0-0.8); Calcium 9.1 mg/dl (8.6-10.4); Carbon Dioxide 25 mmol/L (22-30); Chloride 90 mmol/L (96-108); Globulin 3.7 gm/dL (2.2-3.7); Glomerular Filtration Rate 96; Glucose 205 mg/dL (70-105)
[2019-10-31] MEDS ORDERED: PROMETHAZINE 12.5 MG PR ONE (02:19)
[2019-10-31] MEDS ORDERED: NALOXONE HCL 0.4 MG/ML VIAL IV PRN (02:41)
[2019-10-31] MEDS ORDERED: LACTATED RINGERS 1,000 ML IV SCH (02:45)
--- NOTE | 2019-10-31 04:14 | XRay Report ---
CLINICAL INFORMATION: abdominal pain COMPARISON: 10/01/2019 FINDINGS: The stomach and multiple loops of proximal and mid small bowel are moderately dilated with air-fluid levels on the upright film. Distal bowel is decompressed. There is no free air or soft tissue mass IMPRESSION: High-grade distal small bowel obstruction. Interpreted and Authenticated by: All Lundberg 10/31/19
--- NOTE | 2019-10-31 04:15 | XRay Report ---
CLINICAL INFORMATION: NG tube placement COMPARISON: 10/02/2019 FINDINGS: NG tube is in the gastric body. Stomach is moderately dilated. Cardiomediastinal silhouette and pulmonary vessels are normal for technique. Port-A-Cath is stable satisfactory position. Lungs are clear. No effusions. IMPRESSION: NG tube in satisfactory position. Chest is unremarkable Interpreted and Authenticated by: All Lundberg 10/31/19
[2019-10-31] MEDS: PROMETHAZINE 25 MG/ML VIAL IV PRN (07:23)
[2019-10-31] MEDS: HYDROmorphone 2 MG/ML VIAL IV PRN ×4 (07:24→20:38)
[2019-10-31] MEDS: PYRIDOSTIGMINE BROMIDE 10 MG/2 ML ML IM SCH ×3 (07:25→20:45)
--- NOTE | 2019-10-31 12:13 | XRay Report ---
CLINICAL INFORMATION: FOLLOW -UP OF SMALL BOWEL OBSTRUCTION COMPARISON: 10/31/2019 0115 hours FINDINGS: Stomach and multiple loops of upper and mid small bowel are moderately dilated containing air-fluid levels. Caliber has decreased, however following NG decompression. Distal small bowel contains slightly more gas. No free air IMPRESSION: Improving distal small bowel obstruction pattern Interpreted and Authenticated by: All Lundberg 10/31/19
[2019-10-31] MEDS: LACTATED RINGERS 1,000 ML IV SCH ×3 (13:36→19:31)
--- NOTE | 2019-10-31 15:08 | General Surg History&Physical ---
History of Present Illness Patient information: Note initiated : 10/31/19 at 3:07 pm Service Date, if different from initiated Date: [] Patient: Dayanna Stephens a 58 y/o F admitted on 10/31/19 for nausea, vomiting. Chief Complaint: [] HPI: Ms. Stephens is a 58 year old F Medications and Allergies Home Medications Medication Instructions Recorded Confirmed Type predniSONE [Prednisone] 20 mg PO [facility] #4 tab 05/18/16 10/31/19 Rx DULoxetine [Cymbalta] 30 mg PO BID 11/30/16 10/31/19 History Levothyroxine [Synthroid] 250 mcg PO QAMAC 08/20/17 10/31/19 History metFORMIN HCL [Metformin HCl] 500 mg PO DAILY #30 tab 10/17/18 10/31/19 Rx Calcitriol [Rocaltrol] 0.25 mcg PO TID 02/11/19 10/31/19 History Promethazine [Phenergan] 25 mg PO Q6HP PRN #60 tab 02/13/19 10/31/19 Rx cyclobenzaprine 10 mg tablet 10 mg PO TID #90 tab 04/17/19 10/31/19 Rx B-D Syringe 3 mL 1 unit .ROUTE .MEDSUPPLY 09/30/19 10/31/19 History Calcium Carbonate 1,200 mg PO BID 09/30/19 10/31/19 History Insulin Glargine, Human [Lantus] 5 unit SQ DAILY 09/30/19 10/31/19 History filter needles 19 x 1 1/2" 0 units .ROUTE .MEDSUPPLY 09/30/19 10/31/19 History Accu-Chek 1 each FS ACHS strip 10/05/19 10/31/19 Rx Acetaminophen [Tylenol] 650 mg PO Q6HP PRN tab 10/05/19 10/31/19 Rx traMADol [Ultram] 50 mg PO Q6HP PRN #40 tab 10/05/19 10/31/19 Rx metoprolol succinate 25 mg 25 mg PO QDAY #30 tab 10/19/19 10/31/19 Rx tablet,extended release 24 hr Insulin Lispro [Humalog] See Protocol SUB-Q ACHS 10/31/19 10/31/19 History Pyridostigmine [place] [Regonol] 10 mg SQ Q6 10/31/19 10/31/19 History Allergies Allergy/AdvReac Type Severity Reaction Status Date / Time Sulfa (Sulfonamide Allergy Severe Anaphylaxis Verified 10/19/19 09:06 Antibiotics) adhesive tape AdvReac Mild Blister Verified 10/19/19 09:06 metoclopramide [From Reglan] AdvReac Mild Anxiety Verified 10/19/19 09:06 steri strips Allergy Severe Blister Uncoded 10/19/19 09:06 Exam Temp Pulse Resp BP Pulse Ox 97.4 F 110 H 14 102/70 94 10/31/19 11:39 10/31/19 11:39 10/31/19 11:39 10/31/19 11:39 10/31/19 11:39 Assessment and Plan (1) Myasthenia gravis Status: Chronic (2) LA (obstructive sleep apnea) Status: Chronic (3) Chronic intestinal pseudo-obstruction Status: Chronic (4) Polyglandular autoimmune syndrome Status: Chronic
[2019-10-31] MEDS ORDERED: HEPARIN SODIUM,PORCINE/PF 500 UNIT/5 ML SYRINGE IV ONE (20:12)
[2019-10-31] MEDS: 0.9 % SODIUM CHLORIDE 10 ML SYRINGE IV SCH (20:28)
[2019-10-31] MEDS: methylPREDNISolone SOD SUCC 125 MG/2 ML VIAL IV SCH (20:37)
[2019-11-01] MEDS: LACTATED RINGERS 1,000 ML IV SCH ×5 (00:31→21:41)
[2019-11-01] MEDS: PYRIDOSTIGMINE BROMIDE 10 MG/2 ML ML IM SCH ×5 (00:34→23:56)
[2019-11-01] MEDS: HYDROmorphone 2 MG/ML VIAL IV PRN ×6 (01:01→20:46)
[2019-11-01] MEDS ORDERED: BUDESONIDE 0.5 MG/2 ML AMPUL.NEB NEB ONE (02:46)
[2019-11-01] MEDS ORDERED: IPRATROPIUM/ALBUTEROL 3 ML AMPUL.NEB NEB ONE (02:46)
[2019-11-01] MEDS: PROMETHAZINE 25 MG/ML VIAL IV PRN (05:44)
[2019-11-01] MEDS: methylPREDNISolone SOD SUCC 125 MG/2 ML VIAL IV SCH ×2 (09:07→20:47)
[2019-11-01] MEDS: 0.9 % SODIUM CHLORIDE 10 ML SYRINGE IV SCH ×2 (09:08→20:05)
[2019-11-01 14:49] LABS: Basophils # (Auto) 0.02 K/mcL (0.00-0.30); Basophils % (Auto) 0.3 % (0.0-2.0); Eosinophils # (Auto) 0 K/mcL (0.00-0.70); Eosinophils % (Auto) 0 % (0.0-7.0); Granulocytes % (Auto) 87.8 % (38.0-78.0); Hematocrit 35.2 % (34.1-44.9); Lymphocytes # (Auto) 0.74 K/mcL (1.50-4.80); Lymphocytes % (Auto) 10.7 % (15.5-49.0); Mean Corpuscular HGB Conc 31.3 g/dL (31.0-36.0); Mean Platelet Volume 9.3 fL (7.4-10.4); Monocytes # (Auto) 0.08 K/mcL (0.10-0.90); Monocytes % (Auto) 1.2 % (1.0-12.0); Platelet Count 301 K/mcL (140-440); RBC 3.91 M/mcL (3.59-5.38); Red Cell Distribution Width 18.4 % (11.5-14.5); WBC 6.9 K/mcL (4.50-11.00)
--- NOTE | 2019-11-01 14:53 | General Surgery Progress Note ---
Subjective Patient reports: feels better, pain is less, flatus, diarrhea, afebrile Narrative: Note initiated : 11/01/19 at 2:51 pm Service Date, if different from initiated Date: [] Patient: Dayanna Stephens 58 y/o F admitted on 10/31/19 for nausea, vomiting. Chief Complaint: [patient is doing better. She continues to have significant output through her stoma. She has over 800 cc the canister. Nasogastric sucti on. She has less abdominal discomfort. X-ray shows probably 75% reduction in small bowel gas.] Objective Temp Pulse Resp BP Pulse Ox 97.8 F 79 18 137/82 92 11/01/19 12:00 11/01/19 12:00 11/01/19 12:00 11/01/19 12:00 11/01/19 12:00 - Additional Data Intake & Output - Last 24 hours: Intake & Output 10/30/19 10/31/19 11/01/19 11/02/19 05:59 05:59 05:59 05:59 Intake Total 1000 4407 1100 Output Total 50 2225 325 Balance 950 2182 775 Weight 224 lb 225 lb 8 oz - General physical appearance well developed, well nourished, no distress, moderate pain, obese - Eyes PERRL, normal ocular movement - ENT normal pinna, normal nares, normal mucosa, no hearing loss, no congestion - Neck no masses, no bruits, trachea midline, no lymphadenopathy, no venous distension - Respiratory normal expansion, normal respiratory effort, clear to auscultation - Cardiovascular Cardiovascular exam: Present: normal rate and rhythm, RRR, +S1, +S2. Absent: JVD, tachycardia - Abdomen non tender, bowel sounds (present), surgical scars (none), masses (none), distended (abdomen is much less distended; she has good active bowel sounds; stoma is functioning appropriately) - Integumentary no rash, no growths, no abnormal pigmentation - Neurologic normal coordination, normal sensation - Musculoskeletal normal gait, normal posture - Psychiatric oriented to time, oriented to person, oriented to place, speech is normal, memory intact - Labs 11/01/19 13:30 10/31/19 00:29 Assessment and Plan (1) Myasthenia gravis Status: Chronic Assessment and plan: Clinically stable without exacerbation Current Visit: No (2) LA (obstructive sleep apnea) Status: Chronic Current Visit: No (3) Chronic intestinal pseudo-obstruction Status: Chronic Assessment and plan: Major decrease in intestinal gaseous distention Current Visit: No (4) Polyglandular autoimmune syndrome Status: Chronic Current Visit: No - Time Spent With Patient Total time spent is greater than 50% in coordination of care (as documented) at patient's floor/unit and/or counseling patient:
[2019-11-01] MEDS: POLYETHYLENE GLYCOL 3350 17 GM PACKET PO SCH ×2 (17:47→20:05)
--- NOTE | 2019-11-01 18:50 | XRay Report ---
CLINICAL INFORMATION: Follow small bowel obstruction COMPARISON: 10/31/2019 FINDINGS: NG tube is in stable satisfactory position. Stomach, small bowel and residual large bowel now appear unremarkable. No free air. IMPRESSION: Resolved small bowel obstruction pattern. Negative Interpreted and Authenticated by: All Lundberg 11/01/19
[2019-11-01] MEDS: INSULIN LISPRO 1 UNIT/0.01 ML UNIT SQ SCH ×2 (20:14→23:59)
[2019-11-01] MEDS: HEPARIN 5,000 UNIT/ML VIAL SQ SCH (20:46)
[2019-11-02] MEDS: LACTATED RINGERS 1,000 ML IV SCH ×5 (02:25→23:06)
[2019-11-02] MEDS: HYDROmorphone 2 MG/ML VIAL IV PRN ×5 (02:26→21:14)
[2019-11-02] MEDS: POLYETHYLENE GLYCOL 3350 17 GM PACKET PO SCH ×4 (04:24→20:54)
[2019-11-02] MEDS: PYRIDOSTIGMINE BROMIDE 10 MG/2 ML ML IM SCH ×5 (05:59→23:14)
[2019-11-02] MEDS: INSULIN LISPRO 1 UNIT/0.01 ML UNIT SQ SCH ×4 (06:17→23:20)
[2019-11-02 07:20] LABS: Bilirubin,Direct < 0.2 mg/dL (0.0-0.3); Bilirubin,Total < 0.2 mg/dL (0.0-1.0); Chloride 97 mmol/L (96-108)
[2019-11-02 07:33] LABS: ALT/SGPT 16 U/l (0-40); AST/SGOT 15 U/l (0-37); Albumin 2.8 gm/dL (3.2-5.2); Alkaline Phosphatase 90 U/L (39-117); Blood Urea Nitrogen 8 mg/dl (6-20); Calcium 7.3 mg/dl (8.6-10.4); Carbon Dioxide 24 mmol/L (22-30); Globulin 2.9 gm/dL (2.2-3.7); Glomerular Filtration Rate 107; Glucose 205 mg/dL (70-105); Lactate Dehydrogenase 298 U/L (94-250); Phosphorous 3.6 mg/dL (2.7-4.5); Triglycerides 228 mg/dl (<150); Uric Acid 5.7 mg/dL (2.5-8.0)
[2019-11-02] MEDS ORDERED: PROMETHAZINE 25 MG TABLET PO PRN (08:33)
--- NOTE | 2019-11-02 08:40 | XRay Report ---
CLINICAL INFORMATION: FOLLOW -UP OF SMALL BOWEL OBSTRUCTION COMPARISON: 11/01/2019 FINDINGS: NG tube is in stable position overlying the gastric body. The stomach, small bowel and residual large bowel appear markedly decompressed with minimal gas evident. No free air, soft tissue mass, organomegaly or pathologic calcification. IMPRESSION: Complete resolution small bowel obstruction pattern. Near-complete decompression of the GI tract Interpreted and Authenticated by: All Lundberg 11/02/19
[2019-11-02] MEDS: CYCLOBENZAPRINE 10 MG TABLET PO SCH ×3 (10:55→20:55)
[2019-11-02] MEDS: METOPROLOL SUCCINATE 25 MG TAB.XL.24H PO SCH (10:56)
[2019-11-02] MEDS: DULoxetine 30 MG CAPSULE PO SCH ×2 (10:56→20:55)
[2019-11-02] MEDS: metFORMIN 500 MG TABLET PO SCH (10:56)
[2019-11-02] MEDS: HEPARIN 5,000 UNIT/ML VIAL SQ SCH ×2 (10:57→20:55)
[2019-11-02] MEDS: methylPREDNISolone SOD SUCC 125 MG/2 ML VIAL IV SCH ×2 (10:57→20:55)
[2019-11-02] MEDS: 0.9 % SODIUM CHLORIDE 10 ML SYRINGE IV SCH ×2 (10:58→21:10)
[2019-11-02] MEDS: CALCIUM CARBONATE 1,250 MG/5 ML ORAL.SUSP PO SCH ×2 (11:13→20:55)
[2019-11-02] MEDS: CALCITRIOL 0.25 MCG CAPSULE PO SCH ×3 (11:13→20:55)
[2019-11-02 11:56] LABS: Basophils # (Auto) 0.02 K/mcL (0.00-0.30); Basophils % (Auto) 0.3 % (0.0-2.0); Eosinophils # (Auto) 0 K/mcL (0.00-0.70); Eosinophils % (Auto) 0 % (0.0-7.0); Granulocytes % (Auto) 82.5 % (38.0-78.0); Hematocrit 34.9 % (34.1-44.9); Hemoglobin 10.7 g/dL (11.2-15.7); Lymphocytes # (Auto) 0.86 K/mcL (1.50-4.80); Lymphocytes % (Auto) 14.4 % (15.5-49.0); Mean Cell Volume 91.4 fL (80.0-100.0); Mean Corpuscular HGB Conc 30.7 g/dL (31.0-36.0); Mean Platelet Volume 9.4 fL (7.4-10.4); Monocytes # (Auto) 0.17 K/mcL (0.10-0.90); Monocytes % (Auto) 2.8 % (1.0-12.0); Platelet Count 276 K/mcL (140-440); RBC 3.82 M/mcL (3.59-5.38); Red Cell Distribution Width 18.6 % (11.5-14.5)
--- NOTE | 2019-11-02 14:18 | General Surgery Progress Note ---
Subjective Patient reports: feels better, pain is less, tolerating liquids well, flatus, bowel movement, diarrhea, afebrile Narrative: Note initiated : 11/02/19 at 2:15 pm Service Date, if different from initiated Date: [] Patient: Dayanna Stephens 58 y/o F admitted on 10/31/19 for nausea, vomiting. Chief Complaint: [patient is clinically improved. She has good output through her stoma. X-ray this morning shows near-complete resolution of partial intestinal obstruction. Nasogastric tube has been discontinued. She was started on clear liquids. White blood count 6, hemoglobin 10.7, hematocrit 34.9, BUN 8, creatinine 0.5, magnesium 1.1. Patient has had intermittent complaints of dizziness, but this appears to be more positional. She does not have tachycardia or hypotension. Dizziness.] Objective Temp Pulse Resp BP Pulse Ox 98.0 F 81 18 157/87 94 11/02/19 12:00 11/02/19 12:00 11/02/19 12:00 11/02/19 12:00 11/02/19 12:00 - Additional Data Intake & Output - Last 24 hours: Intake & Output 10/31/19 11/01/19 11/02/19 11/03/19 05:59 05:59 05:59 05:59 Intake Total 1000 4407 4357 1000 Output Total 50 2225 1525 Balance 950 2182 2832 1000 Weight 224 lb 225 lb 8 oz 234 lb 5 oz 234 lb 5 oz - General physical appearance well developed, well nourished, no distress, obese - Eyes PERRL, normal ocular movement - ENT normal pinna, normal nares, normal mucosa, no hearing loss, no congestion - Neck no masses, no bruits, trachea midline, no lymphadenopathy, no venous distension - Respiratory normal expansion, normal respiratory effort, clear to auscultation - Cardiovascular Cardiovascular exam: Present: normal rate and rhythm, RRR, +S1, +S2. Absent: JVD, tachycardia - Abdomen non tender, bowel sounds (present), surgical scars (none), masses (none) - Integumentary no rash, no growths, no abnormal pigmentation - Neurologic normal coordination, normal sensation - Musculoskeletal normal gait, normal posture - Psychiatric oriented to time, oriented to person, oriented to place, speech is normal, memory intact - Labs 11/02/19 05:10 11/02/19 05:10 Diabetes panel 11/02/19 Range/Units 05:10 Sodium 138 (133-145) mmol/L Potassium 4.1 (3.3-5.1) mmol/L Chloride 97 (96-108) mmol/L Carbon Dioxide 24 (22-30) mmol/L BUN 8 (6-20) mg/dl Creatinine 0.5 L (0.6-1.1) mg/dl Glucose 205 H (70-105) mg/dL Calcium 7.3 L (8.6-10.4) mg/dl AST 15 (0-37) U/l ALT 16 (0-40) U/l Alkaline Phosphatase 90 (39-117) U/L Total Protein 5.7 L (5.9-8.4) gm/dL Albumin 2.8 L (3.2-5.2) gm/dL Triglycerides 228 H (<150) mg/dl Calcium panel 11/02/19 Range/Units 05:10 Calcium 7.3 L (8.6-10.4) mg/dl Phosphorus 3.6 (2.7-4.5) mg/dL Albumin 2.8 L (3.2-5.2) gm/dL Pituitary panel 11/02/19 Range/Units 05:10 Sodium 138 (133-145) mmol/L Potassium 4.1 (3.3-5.1) mmol/L Chloride 97 (96-108) mmol/L Carbon Dioxide 24 (22-30) mmol/L BUN 8 (6-20) mg/dl Creatinine 0.5 L (0.6-1.1) mg/dl Glucose 205 H (70-105) mg/dL Calcium 7.3 L (8.6-10.4) mg/dl Adrenal panel 11/02/19 Range/Units 05:10 Sodium 138 (133-145) mmol/L Potassium 4.1 (3.3-5.1) mmol/L Chloride 97 (96-108) mmol/L Carbon Dioxide 24 (22-30) mmol/L BUN 8 (6-20) mg/dl Creatinine 0.5 L (0.6-1.1) mg/dl Glucose 205 H (70-105) mg/dL Calcium 7.3 L (8.6-10.4) mg/dl Total Bilirubin < 0.2 (0.0-1.0) mg/dL AST 15 (0-37) U/l ALT 16 (0-40) U/l Alkaline Phosphatase 90 (39-117) U/L Total Protein 5.7 L (5.9-8.4) gm/dL Albumin 2.8 L (3.2-5.2) gm/dL Assessment and Plan (1) Myasthenia gravis Status: Chronic Assessment and plan: Clinically stable without exacerbations Current Visit: No (2) LA (obstructive sleep apnea) Status: Chronic Current Visit: No (3) Chronic intestinal pseudo-obstruction Status: Chronic Assessment and plan: Major decrease in intestinal gaseous distention Current Visit: No (4) Polyglandular autoimmune syndrome Status: Chronic Current Visit: No - Time Spent With Patient Total time spent is greater than 50% in coordination of care (as documented) at patient's floor/unit and/or counseling patient:
[2019-11-02] MEDS ORDERED: MECLIZINE 25 MG TABLET PO PRN (14:19)
[2019-11-02] MEDS: MAGNESIUM SULFATE 4 GM/100 ML BAG IV SCH ×2 (14:20→16:42)
[2019-11-03] MEDS: HYDROmorphone 2 MG/ML VIAL IV PRN ×4 (01:56→13:38)
[2019-11-03] MEDS: POLYETHYLENE GLYCOL 3350 17 GM PACKET PO SCH ×2 (03:39→09:27)
[2019-11-03] MEDS: LACTATED RINGERS 1,000 ML IV SCH ×3 (03:41→13:23)
[2019-11-03] MEDS: PYRIDOSTIGMINE BROMIDE 10 MG/2 ML ML IM SCH ×2 (05:36→11:46)
[2019-11-03] MEDS: INSULIN LISPRO 1 UNIT/0.01 ML UNIT SQ SCH ×2 (05:41→11:41)
[2019-11-03 07:14] LABS: Basophils # (Auto) 0.01 K/mcL (0.00-0.30); Basophils % (Auto) 0.3 % (0.0-2.0); Eosinophils # (Auto) 0 K/mcL (0.00-0.70); Eosinophils % (Auto) 0 % (0.0-7.0); Granulocytes % (Auto) 81.6 % (38.0-78.0); Hematocrit 35.1 % (34.1-44.9); Hemoglobin 10.6 g/dL (11.2-15.7); Lymphocytes # (Auto) 0.59 K/mcL (1.50-4.80); Lymphocytes % (Auto) 14.8 % (15.5-49.0); Mean Cell Volume 92.6 fL (80.0-100.0); Mean Corpuscular HGB Conc 30.2 g/dL (31.0-36.0); Mean Platelet Volume 9.3 fL (7.4-10.4); Monocytes # (Auto) 0.13 K/mcL (0.10-0.90); Monocytes % (Auto) 3.3 % (1.0-12.0); Platelet Count 297 K/mcL (140-440); RBC 3.79 M/mcL (3.59-5.38); Red Cell Distribution Width 18.6 % (11.5-14.5)
[2019-11-03 07:17] LABS: Bilirubin,Direct < 0.2 mg/dL (0.0-0.3); Bilirubin,Total < 0.2 mg/dL (0.0-1.0); Chloride 99 mmol/L (96-108)
[2019-11-03 07:23] LABS: ALT/SGPT 14 U/l (0-40); AST/SGOT 13 U/l (0-37); Albumin 2.9 gm/dL (3.2-5.2); Alkaline Phosphatase 83 U/L (39-117); Blood Urea Nitrogen 7 mg/dl (6-20); Calcium 7.4 mg/dl (8.6-10.4); Carbon Dioxide 25 mmol/L (22-30); Globulin 2.8 gm/dL (2.2-3.7); Glomerular Filtration Rate 107; Glucose 185 mg/dL (70-105); Lactate Dehydrogenase 305 U/L (94-250); Phosphorous 3.9 mg/dL (2.7-4.5); Triglycerides 231 mg/dl (<150); Uric Acid 5.7 mg/dL (2.5-8.0)
[2019-11-03] MEDS ORDERED: LEVOTHYROXINE 125 MCG TABLET PO SCH (07:30)
[2019-11-03] MEDS: metFORMIN 500 MG TABLET PO SCH (07:43)
[2019-11-03] MEDS ORDERED: predniSONE 20 MG TABLET PO SCH (08:00)
--- NOTE | 2019-11-03 08:08 | XRay Report ---
CLINICAL INFORMATION: FOLLOW -UP OF SMALL BOWEL OBSTRUCTION COMPARISON: 11/02/2019 FINDINGS: NG tube now. The GI tract remain decompressed with scattered fluid levels in the stomach and small bowel. No free air or soft tissue mass. IMPRESSION: Normal stool gas pattern. NG tube now Interpreted and Authenticated by: All Lundberg 11/03/19
[2019-11-03] MEDS: CYCLOBENZAPRINE 10 MG TABLET PO SCH (09:21)
[2019-11-03] MEDS: METOPROLOL SUCCINATE 25 MG TAB.XL.24H PO SCH (09:21)
[2019-11-03] MEDS: CALCITRIOL 0.25 MCG CAPSULE PO SCH (09:21)
[2019-11-03] MEDS: DULoxetine 30 MG CAPSULE PO SCH (09:21)
[2019-11-03] MEDS: CALCIUM CARBONATE 1,250 MG/5 ML ORAL.SUSP PO SCH (09:23)
[2019-11-03] MEDS: methylPREDNISolone SOD SUCC 125 MG/2 ML VIAL IV SCH (09:23)
[2019-11-03] MEDS: HEPARIN 5,000 UNIT/ML VIAL SQ SCH (09:23)
[2019-11-03] MEDS: 0.9 % SODIUM CHLORIDE 10 ML SYRINGE IV SCH (09:24)
--- NOTE | 2019-11-03 13:43 | Discharge Summary ---
Providers - Providers Patient information: Note initiated : 11/03/19 at 1:39 pm Service Date, if different from initiated Date: [] Patient: Dayanna Stephens 58 y/o F admitted on 10/31/19 for nausea, vomiting. Chief Complaint: [] Date of admission: 10/31/19 Discharge date: 11/03/19 Attending physician: Bertha Currie Hospitalization Hospital Course: 58-year-old female with history of chronic intestinal pseudoobstruction who has had multiple admissions for recurrent episodes of nausea and vomiting due to pseudoobstruction. Patient was recently discharged from nursing care facility. She developed increasing abdominal pain nausea and vomiting. She was seen in the emergency room which massively dilated stomach and small bowel with small amount of gas and stool in her stomal appliance. Patient could not keep down any medications or liquids, so she was admitted. 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 I am and switch to IV medications. She was monitored over the next 2 days. Her stoma started having increased output. Follow-up x-rays show significant reduction in the amount of gaseous distention of small bowel total decompression of the stomach. Nasogastric tube was discontinued and she was started on clear liquid diet. She has done well and the x-rays since morning shows total decompression of her stomach and small bowel. Patient is clinically stable and is back to baseline. She is discharged in stable satisfactory condition. 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 Diabetes mellitus. Hypocalcemia Reason for admission: recurrent abdominal pain, nausea and vomiting Procedures: None Pertinent studies/significant findings: None Complications: None Exam Temp Pulse Resp BP Pulse Ox 97.4 F 66 18 163/86 96 11/03/19 10:59 11/03/19 10:59 11/03/19 10:59 11/03/19 10:59 11/03/19 10:59 - General physical appearance well developed, well nourished, no distress - Eyes PERRL, normal ocular movement - ENT normal pinna, normal nares, normal mucosa, no hearing loss, no congestion - Head Head exam IM: Present: atraumatic, normocephalic - Neck no masses, no bruits, trachea midline, no lymphadenopathy, no venous distension - Cardiovascular Cardiovascular exam IM: Present: normal rate and rhythm - Respiratory normal expansion, normal respiratory effort, clear to percussion, clear to auscultation - Abdomen Abdomen: Present: soft, non tender, bowel sounds, distended (no abdominal distentions; good bowel) Hernia: Present: none - Genitourinary Present: normal external genitalia - Integumentary Present: no rash, no growths, no abnormal pigmentation - Neurologic Present: normal coordination, normal sensation - Musculoskeletal Present: normal gait, normal posture - Psychiatric Present: oriented to time, oriented to person, oriented to place, speech is normal, memory intact Discharge Plan - Patient/Caregiver Discharge Instructions Activity: increase activity as tolerated Diet: Regular Diet Additional Instructions: Patient will continue all medications as prior to admission with no new changes - Follow up Plan Follow up with: Douglas Haque MD [Primary Care Provider] - Disposition: Home, Self-Care Prognosis: Good Rehab Potential: Good I certify that the patient requires SNF services.: No Overall status at discharge: patient is progressing back to baseline Pending Studies Resuscitation Status Limited Code Diet GI Soft/Transitional Start SatNov 03 940 Calcitriol (Rocaltrol) 0.25 mcg PO TID [facility] Last Admin: 11/03/19 09:21 Dose: 0.25 mcg Documented by: Admin: 11/02/19 20:55 Dose: 0.25 mcg Documented by: Admin: 11/02/19 14:20 Dose: 0.25 mcg Documented by: Admin: 11/02/19 11:13 Dose: 0.25 mcg Documented by: ANGELY Calcium Carbonate/Glycine (Calcium Carbonate) 1,200 mg PO BID [facility] Last Admin: 11/03/19 09:23 Dose: 1,200 mg Documented by: Admin: 11/02/19 20:55 Dose: 1,200 mg Documented by: Admin: 11/02/19 11:13 Dose: 1,200 mg Documented by: ANGELY Cyclobenzaprine HCl (Flexeril) 10 mg PO TID [facility] Last Admin: 11/03/19 09:21 Dose: 10 mg Documented by: Admin: 11/02/19 20:55 Dose: 10 mg Documented by: Admin: 11/02/19 14:20 Dose: 10 mg Documented by: Admin: 11/02/19 10:55 Dose: 10 mg Documented by: ANGELY Diagnostic Test (Pha) (Accu-Chek) 1 each FS Q6 [facility]; Protocol Last Admin: 11/03/19 11:37 Dose: 1 each Documented by: Admin: 11/03/19 05:35 Dose: 1 each Documented by: Admin: 11/02/19 23:15 Dose: 1 each Documented by: Admin: 11/02/19 16:35 Dose: 1 each Documented by: Admin: 11/02/19 12:07 Dose: 1 each Documented by: Admin: 11/02/19 05:59 Dose: 1 each Documented by: Admin: 11/01/19 23:58 Dose: 1 each Documented by: SAL Duloxetine HCl (Cymbalta) 30 mg PO BID [facility] Last Admin: 11/03/19 09:21 Dose: 30 mg Documented by: Admin: 11/02/19 20:55 Dose: 30 mg Documented by: Admin: 11/02/19 10:56 Dose: 30 mg Documented by: ANGELY Heparin Sodium (Porcine) (Heparin Flush) 5 ml IV Q12 [facility] Last Admin: 11/03/19 09:23 Dose: 5 ml Documented by: Admin: 11/02/19 21:10 Dose: Not Given Documented by: Admin: 11/02/19 10:57 Dose: 5 ml Documented by: Admin: 11/01/19 20:05 Dose: Not Given Documented by: Admin: 11/01/19 09:14 Dose: Not Given Documented by: Admin: 10/31/19 20:27 Dose: Not Given Documented by: SAL Heparin Sodium (Porcine) (Heparin) 5,000 unit SQ Q12 [facility] Last Admin: 11/03/19 09:23 Dose: 5,000 unit Documented by: Admin: 11/02/19 20:55 Dose: 5,000 unit Documented by: Admin: 11/02/19 10:57 Dose: 5,000 unit Documented by: Admin: 11/01/19 20:46 Dose: 5,000 unit Documented by: SAL Hydromorphone HCl (Dilaudid) 0.5 mg IV Q2HP PRN; Protocol PRN Reason: Per Pain Protocol Last Admin: 11/03/19 09:42 Dose: 0.5 mg Documented by: Admin: 11/03/19 06:35 Dose: 0.5 mg Documented by: Admin: 11/03/19 01:56 Dose: 0.5 mg Documented by: Admin: 11/02/19 21:14 Dose: 0.5 mg Documented by: Admin: 11/02/19 15:40 Dose: 0.5 mg Documented by: Admin: 11/02/19 10:51 Dose: 0.5 mg Documented by: Admin: 11/02/19 06:00 Dose: 0.5 mg Documented by: Admin: 11/02/19 02:26 Dose: 0.5 mg Documented by: Admin: 11/01/19 20:46 Dose: 0.5 mg Documented by: Admin: 11/01/19 16:32 Dose: 0.5 mg Documented by: Admin: 11/01/19 12:35 Dose: 0.5 mg Documented by: Admin: 11/01/19 09:07 Dose: 0.5 mg Documented by: Admin: 11/01/19 04:24 Dose: 0.5 mg Documented by: Admin: 11/01/19 01:01 Dose: 0.5 mg Documented by: Admin: 10/31/19 20:38 Dose: 0.5 mg Documented by: Admin: 10/31/19 15:06 Dose: 0.5 mg Documented by: Admin: 10/31/19 11:50 Dose: 0.5 mg Documented by: Admin: 10/31/19 07:24 Dose: 0.5 mg Documented by: WILLIAM Lactated Ringer's (Lactated Ringers) 1,000 mls @ 200 mls/hr IV .Q5H [facility] Admin: 11/03/19 13:23 Dose: Not Given Documented by: Admin: 11/03/19 09:24 Dose: Not Given Documented by: Infusion: 11/03/19 09:00 Dose: 0 mls/hr Documented by: Admin: 11/03/19 03:41 Dose: 200 mls/hr Documented by: Infusion: 11/03/19 03:41 Dose: 200 mls/hr Documented by: Admin: 11/02/19 23:06 Dose: 200 mls/hr Documented by: Infusion: 11/02/19 23:06 Dose: 200 mls/hr Documented by: Admin: 11/02/19 18:12 Dose: 200 mls/hr Documented by: Infusion: 11/02/19 15:56 Dose: 200 mls/hr Documented by: Admin: 11/02/19 13:08 Dose: Not Given Documented by: Admin: 11/02/19 10:56 Dose: 200 mls/hr Documented by: Infusion: 11/02/19 07:25 Dose: 200 mls/hr Documented by: Admin: 11/02/19 02:25 Dose: 200 mls/hr Documented by: Infusion: 11/02/19 02:25 Dose: 200 mls/hr Documented by: Admin: 11/01/19 21:41 Dose: 200 mls/hr Documented by: Infusion: 11/01/19 21:33 Dose: 200 mls/hr Documented by: Admin: 11/01/19 16:33 Dose: 200 mls/hr Documented by: Infusion: 11/01/19 16:04 Dose: 200 mls/hr Documented by: Admin: 11/01/19 11:04 Dose: 200 mls/hr Documented by: Infusion: 11/01/19 10:26 Dose: 200 mls/hr Documented by: Admin: 11/01/19 05:26 Dose: 200 mls/hr Documented by: Infusion: 11/01/19 05:26 Dose: 200 mls/hr Documented by: Admin: 11/01/19 00:31 Dose: 200 mls/hr Documented by: Infusion: 11/01/19 00:31 Dose: 200 mls/hr Documented by: Admin: 10/31/19 19:31 Dose: 200 mls/hr Documented by: Infusion: 10/31/19 19:31 Dose: 200 mls/hr Documented by: Admin: 10/31/19 17:47 Dose: 200 mls/hr Documented by: Infusion: 10/31/19 17:47 Dose: 200 mls/hr Documented by: Admin: 10/31/19 13:36 Dose: 200 mls/hr Documented by: VALERIA Insulin Human Lispro (Humalog) 0 unit SQ Q6 [facility]; Protocol Last Admin: 11/03/19 11:41 Dose: 4 unit Documented by: Admin: 11/03/19 05:41 Dose: 4 unit Documented by: Admin: 11/02/19 23:20 Dose: 8 unit Documented by: Admin: 11/02/19 16:35 Dose: Not Given Documented by: Admin: 11/02/19 12:07 Dose: Not Given Documented by: Admin: 11/02/19 06:17 Dose: 6 unit Documented by: Admin: 11/01/19 23:59 Dose: Not Given Documented by: Admin: 11/01/19 20:14 Dose: Not Given Documented by: SAL Levothyroxine Sodium (Synthroid) 250 mcg PO [facility] Last Admin: 11/03/19 07:43 Dose: 250 mcg Documented by: MYNOR Meclizine HCl (Antivert) 25 mg PO TIDP PRN PRN Reason: Vertigo Last Admin: 11/02/19 15:38 Dose: 25 mg Documented by: ANGELY Metformin HCl (Glucophage) 500 mg PO [facility] Last Admin: 11/03/19 07:43 Dose: 500 mg Documented by: Admin: 11/02/19 10:56 Dose: 500 mg Documented by: ANGELY Methylprednisolone Sodium Succinate (Solu-Medrol) 62.5 mg IV Q12 [facility] Last Admin: 11/03/19 09:23 Dose: 62.5 mg Documented by: Admin: 11/02/19 20:55 Dose: 62.5 mg Documented by: Admin: 11/02/19 10:57 Dose: 62.5 mg Documented by: Admin: 11/01/19 20:47 Dose: 62.5 mg Documented by: Admin: 11/01/19 09:07 Dose: 62.5 mg Documented by: Admin: 10/31/19 20:37 Dose: 62.5 mg Documented by: SAL Metoprolol Succinate (Toprol Xl) 25 mg PO QDAY [facility] Admin: 11/03/19 09:21 Dose: 25 mg Documented by: Admin: 11/02/19 10:56 Dose: 25 mg Documented by: ANGELY Polyethylene Glycol (Miralax) 17 gm PO Q6H [facility] Admin: 11/03/19 09:27 Dose: 17 gm Documented by: Admin: 11/03/19 03:39 Dose: 17 gm Documented by: Admin: 11/02/19 20:54 Dose: 17 gm Documented by: Admin: 11/02/19 15:38 Dose: 17 gm Documented by: Admin: 11/02/19 10:57 Dose: 17 gm Documented by: Admin: 11/02/19 04:24 Dose: 17 gm Documented by: Admin: 11/01/19 20:05 Dose: Not Given Documented by: Admin: 11/01/19 17:47 Dose: 17 gm Documented by: WILLIAM Prednisone (Prednisone) 20 mg PO [facility] Admin: 11/03/19 07:43 Dose: 20 mg Documented by: MYNOR Pyridostigmine [place] (Regonol) 10 mg IM Q6 [facility] Admin: 11/03/19 11:46 Dose: 10 mg Documented by: Admin: 11/03/19 05:36 Dose: 10 mg Documented by: Admin: 11/02/19 23:14 Dose: 10 mg Documented by: Admin: 11/02/19 17:56 Dose: 10 mg Documented by: Admin: 11/02/19 12:07 Dose: 10 mg Documented by: ANGELY Sodium Chloride (Saline Flush) 10 ml IV Q12 [facility] Admin: 11/03/19 09:24 Dose: 10 ml Documented by: Admin: 11/02/19 21:10 Dose: Not Given Documented by: Admin: 11/02/19 10:58 Dose: 10 ml Documented by: Admin: 11/01/19 20:05 Dose: Not Given Documented by: Admin: 11/01/19 09:08 Dose: Not Given Documented by: Admin: 10/31/19 20:28 Dose: Not Given Documented by: SAL Shift Summary 11/03/19 03:54 Shift Summary by Saida Cohen Pt is A&O x4 able to make needs known. Pt up to bathroom with sba. Medicated for chronic pain x2 with Dilaudid. Pt may request additional dose at 6am. Pt tolerating diet with no c/o n/v or increased pain. Pt denies dizziness this shift, vss. Pt home meds restarted yesterday. Pt could possibly discharge today. Will update with verbal report. Initialized on 11/03/19 03:54 - END OF NOTE
[2019-11-03] MEDS ORDERED: HEPARIN SODIUM,PORCINE/PF 500 UNIT/5 ML SYRINGE IV ONE (14:42)
== END 2019-11-03 15:05 | disposition home or self-care (01) | DRG 389 ==
LOC: MEDSUR 00:12 → ED 00:12 → OBSVTOIN 03:37 → MEDSUR 03:37
PROVIDERS: ADMIT Family Medicine Adult Medicine; ATTEND Family Medicine Adult Medicine

== ENCOUNTER 2019-11-16 11:34 | Inpatient (IN) ==
[2019-11-16] MEDS ORDERED: LACTATED RINGERS 1,000 ML IV ONE (11:59)
[2019-11-16] MEDS ORDERED: PROMETHAZINE 25 MG/ML VIAL IV ONE (12:00)
--- NOTE | 2019-11-16 12:40 | Emergency Department Note ---
Abdominal Pain HPI - General Chief Complaint: Abdominal Pain Stated Complaint: right flank pain, vomiting, abdominal pain Time Seen by Provider: 11/16/19 11:49 Source: patient Mode of arrival: wheelchair Limitations: no limitations - History of Present Illness HPI Narrative: Reason for visit: Patient reports abdominal pain mid abdomen. In place. Repor ts she has no colon. Reports that she has been at been admitted here times for small bowel obstruction. States that she has not had any output into her ileostomy emptying it at 5:00 yesterday morning. Reports she is dehydrated she has had vomiting and nausea. Has taken Zofran but has not relieved nausea. Denies any chest pain or shortness of breath or recent illness other than her her current nausea. States that the nausea began this morning. Reports that she has been admitted multiple times here. Is able to eat the routine to me leads up to her admission. Staff also confirm this routine as well. Denies any current swelling. Denies difficulty breathing. - Related Data Home Medications Medication Instructions Recorded Confirmed DULoxetine [Cymbalta] 30 mg PO BID 11/30/16 11/16/19 Levothyroxine [Synthroid] 250 mcg PO QAMAC 08/20/17 11/16/19 Calcitriol [Rocaltrol] 0.25 mcg PO TID 02/11/19 11/16/19 B-D Syringe 3 mL 1 unit .ROUTE .MEDSUPPLY 09/30/19 11/16/19 Calcium Carbonate 1,200 mg PO BID 09/30/19 11/16/19 Insulin Glargine, Human [Lantus] 5 unit SQ BID 09/30/19 11/16/19 filter needles 19 x 1 1/2" 0 units .ROUTE .MEDSUPPLY 09/30/19 11/16/19 Pyridostigmine [place] [Regonol] 5 mg SQ Q6 10/31/19 11/16/19 Previous Rx's Medication Instructions Recorded predniSONE [Prednisone] 20 mg PO [facility] #4 tab 05/18/16 metFORMIN HCL [Metformin HCl] 500 mg PO DAILY #30 tab 10/17/18 Promethazine [Phenergan] 25 mg PO Q6HP PRN #60 tab 02/13/19 cyclobenzaprine 10 mg tablet 10 mg PO TID #90 tab 04/17/19 Accu-Chek 1 each FS ACHS strip 10/05/19 Acetaminophen [Tylenol] 650 mg PO Q6HP PRN tab 10/05/19 traMADol [Ultram] 50 mg PO Q6HP PRN #40 tab 10/05/19 metoprolol succinate 25 mg 25 mg PO QDAY #30 tab 10/19/19 tablet,extended release 24 hr Allergies Allergy/AdvReac Type Severity Reaction Status Date / Time Sulfa (Sulfonamide Allergy Severe Anaphylaxis Verified 11/16/19 11:40 Antibiotics) adhesive tape AdvReac Mild Blister Verified 11/16/19 11:40 metoclopramide [From Reglan] AdvReac Mild Anxiety Verified 11/16/19 11:40 steri strips Allergy Severe Blister Uncoded 10/19/19 09:06 Review of Systems Constitutional: Denies: fever, chills, weakness ENT ED: Denies: throat pain, congestion Cardiovascular: Denies: chest pain, palpitations Respiratory: Reports: as per HPI. Denies: shortness of breath, cough Gastrointestinal: Reports: abdominal pain, nausea, vomiting Genitourinary: Reports: dysuria (Patient reports right flank pain and darker urine. Will check urine.). Denies: urgency, frequency, discharge Integumentary: Denies: rash, lesions Neurological: Denies: headache, weakness, confusion Endocrine: Denies: fatigue Abdominal Pain PMH - Past Medical History Medical history: Reports: COPD, hypertension, hypothyroidism, other (Myasthenia gravis). 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 Denies: marijuana Physical Exam Limitations: no limitations General appearance: alert Head: atraumatic, normocephalic, normal inspection Eye: Present: normal appearance, PERRL. Absent: scleral icterus ENT: Present: mucous membranes dry (Tongue and mouth dry appears dehydrated.) Neck: Present: normal inspection, full ROM, trachea midline. Absent: tenderness, lymphadenopathy Chest: Present: symmetric chest wall rise Respiratory: Present: normal lung sounds bilaterally. Absent: respiratory distress Cardiovascular: Present: normal rhythm, tachycardia Abdominal: Present: tenderness (Palpated mass mid abdomen to the left of ileostomy bag.), mass. Absent: guarding, normal bowel sounds (Bowel sounds absent patient has no:.), Basurto's sign, pulsatile mass Abdominal tenderness: Present: yvrose umbilical, moderate Extremities: Present: normal inspection, full ROM, normal capillary refill. Absent: tenderness Back: Present: normal inspection, CVA tenderness (R). Absent: CVA tenderness (L) Neurological: Present: alert, oriented X3, CN II-XII intact Psychiatric: Present: normal affect, normal mood Skin: Present: warm, dry, intact Course Course Narrative: I have initially ordered a x-ray to check for loop bowel indicate bowel obstruction. X-ray line service technician discussed this with me suggested a CT noncontrast. States that patient has visits and go straight to surgery. I change the x-ray to a CT noncontrast abdomen pelvis due to this. This alleviates the risk for double study. Patient appears will hydrate. Will use Phenergan for antiemetic. States she has taken multiple doses of Zofran today. CT results report small bowel obstruction. Talk to the house soup and contact the surgeon. potassium was 2.8. Had a potassium K rider of [address] electrolyte[address] Vital Signs Temperature 97 F 11/16/19 11:36 Pulse Rate 136 H 11/16/19 11:36 Respiratory Rate 16 11/16/19 11:36 Blood Pressure 134/91 11/16/19 11:36 Pulse Oximetry (%) 98 11/16/19 11:36 Temperature 97.5 F 11/18/19 09:09 Pulse Rate 95 H 11/18/19 09:09 Respiratory Rate 16 11/18/19 09:09 Blood Pressure 109/69 11/18/19 09:09 Pulse Oximetry (%) 98 11/18/19 09:09 Abdominal Pain - Lab Data Result diagrams: 11/18/19 12:00 11/17/19 05:00 Lab Results 11/16/19 11/16/19 11/16/19 Range/Units 12:23 12:23 12:23 WBC 10.4 (4.50-11.00) K/mcL RBC 5.40 H (3.59-5.38) M/mcL Hgb 15.0 (11.2-15.7) g/dL Hct 45.7 H (34.1-44.9) % MCV 84.6 (80.0-100.0) fL MCH 27.8 (26.0-34.0) pg MCHC 32.8 (31.0-36.0) g/dL RDW 15.7 H (11.5-14.5) % Plt Count 381 (140-440) K/mcL MPV 9.3 (7.4-10.4) fL Gran % 69.3 (38.0-78.0) % Lymph % (Auto) 19.8 (15.5-49.0) % Yates % (Auto) 9.4 (1.0-12.0) % Eos % (Auto) 1.1 (0.0-7.0) % Baso % (Auto) 0.4 (0.0-2.0) % Gran # 7.23 (1.80-8.00) K/mcL Lymph # (Auto) 2.06 (1.50-4.80) K/mcL Yates # (Auto) 0.98 H (0.10-0.90) K/mcL Eos # (Auto) 0.11 (0.00-0.70) K/mcL Baso # (Auto) 0.04 (0.00-0.30) K/mcL VBG Lactic Acid (0.5-2.0) mmol/L Sodium 128 L (133-145) mmol/L Potassium 2.8 L* (3.3-5.1) mmol/L Chloride 86 L (96-108) mmol/L Carbon Dioxide 22 (22-30) mmol/L Anion Gap 20.0 H (8-16) BUN 9 (6-20) mg/dl Creatinine 0.7 (0.6-1.1) mg/dl GFR Calculation 96 Glucose 187 H (70-105) mg/dL Calcium 8.0 L (8.6-10.4) mg/dl Magnesium 1.1 L (1.6-2.5) mg/dL Total Bilirubin 0.4 (0.0-1.0) mg/dL AST 18 (0-37) U/l ALT 38 (0-40) U/l Alkaline Phosphatase 119 H (39-117) U/L Total Protein 7.1 (5.9-8.4) gm/dL Albumin 3.6 (3.2-5.2) gm/dL Globulin 3.5 (2.2-3.7) gm/dL Albumin/Globulin Ratio 1.0 (1.0-2.3) 11/16/19 Range/Units 17:17 WBC (4.50-11.00) K/mcL RBC (3.59-5.38) M/mcL Hgb (11.2-15.7) g/dL Hct (34.1-44.9) % MCV (80.0-100.0) fL MCH (26.0-34.0) pg MCHC (31.0-36.0) g/dL RDW (11.5-14.5) % Plt Count (140-440) K/mcL MPV (7.4-10.4) fL Gran % (38.0-78.0) % Lymph % (Auto) (15.5-49.0) % Yates % (Auto) (1.0-12.0) % Eos % (Auto) (0.0-7.0) % Baso % (Auto) (0.0-2.0) % Gran # (1.80-8.00) K/mcL Lymph # (Auto) (1.50-4.80) K/mcL Yates # (Auto) (0.10-0.90) K/mcL Eos # (Auto) (0.00-0.70) K/mcL Baso # (Auto) (0.00-0.30) K/mcL VBG Lactic Acid 0.8 (0.5-2.0) mmol/L Sodium (133-145) mmol/L Potassium (3.3-5.1) mmol/L Chloride (96-108) mmol/L Carbon Dioxide (22-30) mmol/L Anion Gap (8-16) BUN (6-20) mg/dl Creatinine (0.6-1.1) mg/dl GFR Calculation Glucose (70-105) mg/dL Calcium (8.6-10.4) mg/dl Magnesium (1.6-2.5) mg/dL Total Bilirubin (0.0-1.0) mg/dL AST (0-37) U/l ALT (0-40) U/l Alkaline Phosphatase (39-117) U/L Total Protein (5.9-8.4) gm/dL Albumin (3.2-5.2) gm/dL Globulin (2.2-3.7) gm/dL Albumin/Globulin Ratio (1.0-2.3) Disposition Pt seen by /PA only: No Clinical Impression: Hypokalemia, Dehydration, Small bowel obstruction Disposition: Xfer As Inpt ([facility]) Condition: Fair
[2019-11-16] MEDS: HYDROmorphone 2 MG/ML VIAL IV PRN ×5 (12:43→23:11)
[2019-11-16 13:05] LABS: Basophils # (Auto) 0.04 K/mcL (0.00-0.30); Basophils % (Auto) 0.4 % (0.0-2.0); Eosinophils # (Auto) 0.11 K/mcL (0.00-0.70); Eosinophils % (Auto) 1.1 % (0.0-7.0); Granulocytes % (Auto) 69.3 % (38.0-78.0); Hematocrit 45.7 % (34.1-44.9); Lymphocytes # (Auto) 2.06 K/mcL (1.50-4.80); Lymphocytes % (Auto) 19.8 % (15.5-49.0); Mean Cell Volume 84.6 fL (80.0-100.0); Mean Corpuscular HGB Conc 32.8 g/dL (31.0-36.0); Mean Platelet Volume 9.3 fL (7.4-10.4); Monocytes # (Auto) 0.98 K/mcL (0.10-0.90); Monocytes % (Auto) 9.4 % (1.0-12.0); Platelet Count 381 K/mcL (140-440); Red Cell Distribution Width 15.7 % (11.5-14.5); WBC 10.4 K/mcL (4.50-11.00)
[2019-11-16 13:19] LABS: ALT/SGPT 38 U/l (0-40); AST/SGOT 18 U/l (0-37); Albumin 3.6 gm/dL (3.2-5.2); Alkaline Phosphatase 119 U/L (39-117); Bilirubin,Total 0.4 mg/dL (0.0-1.0); Blood Urea Nitrogen 9 mg/dl (6-20); Carbon Dioxide 22 mmol/L (22-30); Glucose 187 mg/dL (70-105)
[2019-11-16 13:32] LABS: Chloride 86 mmol/L (96-108); Globulin 3.5 gm/dL (2.2-3.7); Glomerular Filtration Rate 96
--- NOTE | 2019-11-16 13:44 | Cat Scan Report ---
CLINICAL INFORMATION: Abdominal pain and distention. Suspect recurrent small bowel obstruction. Multiple prior surgeries including total colectomy and partial small bowel resection with right lower quadrant ileostomy COMPARISON: Abdomen and pelvic CT 09/04/2019 TECHNIQUE: 0.625 mm helical slices were obtained from the mid heart through the subtrochanteric regions. Following reconstruction, 2.5 mm sagittal, coronal and axial reformatted images were processed and reviewed at bone and soft tissue windows.The exam was performed using radiation dose optimization techniques including, but not limited to, automated exposure control, adjustment of the mA and/or kV according to patient size and use of iterative reconstruction technique. FINDINGS: Lung bases show patchy scarring and/or atelectasis in both posterior lower lobes - more prominent on the right. A 10 mm nodule in the posterior left lower lobe, on image 12, is unchanged. No effusion. Visualized heart is grossly normal in size. Abdominal images show the noncontrast liver is normal. Gallbladder is surgically absent. The intrahepatic and common bile ducts are normal caliber: CBD is 6 mm. The pancreas, both kidneys, adrenal glands, spleen and aorta are normal in size configuration and attenuation without focal lesion. Pelvic images show slightly retroverted uterus which is normal postmenopausal size - 7 x 3 cm. The urinary bladder is unremarkable. Total colectomy changes with Baez's pouch, partial small bowel resection with ileostomy in the right lower quadrant is again seen. The stomach, duodenum and jejunum are markedly dilated with transition point in the left midabdomen. Entire ileum is markedly decompressed all 2-D right lower quadrant ileostomy. Small parastomal hernia is unchanged. There is a 21 mm focal region of inflammation in the mesenteric fat of the anterior mid abdomen best seen on coronal image 71. There is no free air or free fluid to suggest perforation. Bone windows show no osseous abnormality IMPRESSION: High-grade small bowel obstruction ostensibly in the distal jejunum near a surgical anastomosis. It is likely due to adhesion or stricture. No evidence of perforation or third spacing. Small parastomal hernia in the right lower quadrant ileostomy containing only mesenteric fat.. Interpreted and Authenticated by: All Lundberg 11/16/19
[2019-11-16] MEDS ORDERED: POTASSIUM CHLORIDE 20 MEQ in DEXTROSE 5% IN WATER 250 ML IV ONE (14:11)
[2019-11-16] MEDS: 0.9 % SODIUM CHLORIDE 1,000 ML IV SCH ×2 (16:12→22:38)
--- NOTE | 2019-11-16 16:20 | General Surg History&Physical ---
History of Present Illness Patient information: Note initiated : 11/16/19 at 4:20 pm Service Date, if different from initiated Date: [] Patient: Dayanna Stephens a 58 y/o F admitted on for right flank pain, vomiting, abdominal pain. Chief Complaint: [] HPI: Ms. Stephens is a 58 year old F admitted with chronic intestinal pseudoobstruction. Patient has had multiple admissions for recurrent episodes of nausea and vomiting due to pseudoobstruction. She was recently discharged on October. Over the past 24 hours she has had decreasing output through her stoma and has had increasing abdominal pain with nausea and vomiting. She presented to the emergency room with findings of dilated stomach and small bow el. There is no output through her stoma. Patient has had multiple episodes of this in the past and will be treated accordingly. Review of Systems - Constitutional fatigue, malaise, weakness, weight loss - Cardiovascular palpatations, syncope - Respiratory no dyspnea, no dyspnea on exertion, no pain with cough - Gastrointestinal abdominal pain, bloating, change in bowel habits, constipation, nausea, vomiting - Musculoskeletal arthralgias, myalgias - Integumentary no pruritus, no rash - Neurological weakness - Psychiatric anxiety, depression - Hematologic/Lymphatic no easy bleeding, no easy bruising, no lymphadenopathy - Allergic/Immunologic no tongue swelling, no throat swelling, no uticaria, no wheezing, no lip swelling Past History Past medical history: Myasthenia gravis. Chronic obstructive sleep apnea. Diabetes mellitus. Hypocalcemia. Intestinal pseudoobstruction. Multiple bowel obstruction Medications and Allergies Home Medications Medication Instructions Recorded Confirmed Type predniSONE [Prednisone] 20 mg PO [facility] #4 tab 05/18/16 11/16/19 Rx DULoxetine [Cymbalta] 30 mg PO BID 11/30/16 11/16/19 History Levothyroxine [Synthroid] 250 mcg PO QAMAC 08/20/17 11/16/19 History metFORMIN HCL [Metformin HCl] 500 mg PO DAILY #30 tab 10/17/18 11/16/19 Rx Calcitriol [Rocaltrol] 0.25 mcg PO TID 02/11/19 11/16/19 History Promethazine [Phenergan] 25 mg PO Q6HP PRN #60 tab 02/13/19 11/16/19 Rx cyclobenzaprine 10 mg tablet 10 mg PO TID #90 tab 04/17/19 11/16/19 Rx B-D Syringe 3 mL 1 unit .ROUTE .MEDSUPPLY 09/30/19 11/16/19 History Calcium Carbonate 1,200 mg PO BID 09/30/19 11/16/19 History Insulin Glargine, Human [Lantus] 5 unit SQ BID 09/30/19 11/16/19 History filter needles 19 x 1 1/2" 0 units .ROUTE .MEDSUPPLY 09/30/19 11/16/19 History Accu-Chek 1 each FS ACHS strip 10/05/19 11/16/19 Rx Acetaminophen [Tylenol] 650 mg PO Q6HP PRN tab 10/05/19 11/16/19 Rx traMADol [Ultram] 50 mg PO Q6HP PRN #40 tab 10/05/19 11/16/19 Rx metoprolol succinate 25 mg 25 mg PO QDAY #30 tab 10/19/19 11/16/19 Rx tablet,extended release 24 hr Pyridostigmine [place] [Regonol] 5 mg SQ Q6 10/31/19 11/16/19 History Allergies Allergy/AdvReac Type Severity Reaction Status Date / Time Sulfa (Sulfonamide Allergy Severe Anaphylaxis Verified 11/16/19 11:40 Antibiotics) adhesive tape AdvReac Mild Blister Verified 11/16/19 11:40 metoclopramide [From Reglan] AdvReac Mild Anxiety Verified 11/16/19 11:40 steri strips Allergy Severe Blister Uncoded 10/19/19 09:06 Exam Temp Pulse Resp BP Pulse Ox 97 F 109 H 17 151/100 99 11/16/19 11:36 11/16/19 15:15 11/16/19 15:15 11/16/19 15:15 11/16/19 15:15 - General physical appearance well developed, well nourished, no distress, chronically ill, obese - Eyes PERRL, normal ocular movement - ENT normal pinna, normal nares, normal mucosa, no hearing loss, no congestion - Head Head exam IM: Present: atraumatic, normocephalic - Neck no masses, no bruits, trachea midline, no lymphadenopathy, no venous distension - Cardiovascular Cardiovascular exam IM: Present: normal rate and rhythm - Respiratory normal expansion, normal respiratory effort, clear to percussion, clear to auscultation - Abdomen Abdomen: Present: soft, non tender, tender, bowel sounds, distended Hernia: Present: none - Genitourinary Present: normal external genitalia - Integumentary Present: no rash, no growths, no abnormal pigmentation - Neurologic Present: normal coordination, normal sensation - Musculoskeletal Present: normal gait, normal posture - Psychiatric Present: oriented to time, oriented to person, oriented to place, speech is normal, memory intact Assessment and Plan (1) Chronic intestinal pseudo-obstruction Nasogastric suction for gastric decompression. IV fluid supplementation. Continue Regonol every 6 hours Follow-up abdominal x-rays. Change calcium and other electrolytes to IV until patient can take by mouth Close monitoring of electrolyte abnormalities Status: Chronic (2) Hypertension Supplement with IV medications if needed Status: Chronic Qualifiers: Hypertension type: essential hypertension Qualified Code(s): I10 - Essential (primary) hypertension (3) Myasthenia gravis Status: Chronic (4) LA (obstructive sleep apnea) Supplemental oxygen by nasal cannula as needed Status: Chronic (5) Polyglandular autoimmune syndrome Solu-Medrol 60 mg IV every 12 hours Status: Chronic (6) Sinus tachycardia Beta dipesh therapy if needed Status: Resolved
[2019-11-16] MEDS ORDERED: ONDANSETRON 4 MG/2 ML VIAL IV PRN (16:49)
[2019-11-16] MEDS ORDERED: PROMETHAZINE 25 MG/ML VIAL IV PRN (16:49)
[2019-11-16] MEDS ORDERED: METOPROLOL TARTRATE 5 MG/5 ML VIAL IV PRN (16:57)
[2019-11-16] MEDS ORDERED: DEXTROSE 50% 50 ML VIAL IV PRN (17:02)
[2019-11-16] MEDS ORDERED: DEXTROSE 31 GM ORAL.SUSP PO PRN (17:02)
--- NOTE | 2019-11-16 17:04 | XRay Report ---
CLINICAL INFORMATION: Post NG tube placement COMPARISON: None. FINDINGS: NG tube overlies the gastric fundus. Stomach and multiple loops of upper small bowel are moderately dilated compatible with high-grade partial small bowel obstruction IMPRESSION: NG tube overlies the gastric fundus. Partial small bowel obstruction unchanged Interpreted and Authenticated by: All Lundberg 11/16/19
[2019-11-16] MEDS: LACTATED RINGERS 1,000 ML IV SCH (19:52)
[2019-11-16] MEDS: PYRIDOSTIGMINE BROMIDE 10 MG/2 ML ML SC SCH (21:03)
[2019-11-16] MEDS: methylPREDNISolone SOD SUCC 125 MG/2 ML VIAL IV SCH (21:04)
[2019-11-16] MEDS: INSULIN LISPRO 1 UNIT/0.01 ML UNIT SQ SCH (21:11)
[2019-11-16] MEDS: 0.9 % SODIUM CHLORIDE 10 ML SYRINGE IV SCH (21:12)
[2019-11-17] MEDS: PYRIDOSTIGMINE BROMIDE 10 MG/2 ML ML SC SCH ×2 (00:27→05:42)
[2019-11-17] MEDS: HYDROmorphone 2 MG/ML VIAL IV PRN ×7 (02:37→22:47)
[2019-11-17] MEDS: LACTATED RINGERS 1,000 ML IV SCH ×4 (04:04→22:16)
[2019-11-17] MEDS: 0.9 % SODIUM CHLORIDE 10 ML SYRINGE IV SCH ×3 (05:42→20:43)
[2019-11-17 05:50] LABS: Appearance,Urine HAZY; Bacteria,Urine MOD /hpf (0); Bilirubin,Urine NEG (NEG); Color,Urine YELLOW; Culture Indicated,Urine YES; Glucose,Urine (UA) NEGATIVE (NEG); Ketones,Urine NEG (NEG); Leukocyte Esterase,Urine 75 /uL (NEG); Mucus,Urine MANY /hpf (0); Nitrate,Urine POS (NEG); Protein,Urine NEG (NEG); Specific Gravity,Urine 1.015 (1.000-1.035); Urine Blood NEG mg/dL (<0.03); Urine Hyaline Cast 9 /lpf (0-2); Urine RBC 1 /hpf (0-1); Urine Squamous Epithelial Cell < 1 /hpf (0-4); Urine Transitional Epi Cells < 1 /hpf (0-2); Urine WBC 19 /hpf (0-4)
[2019-11-17] MEDS: INSULIN LISPRO 1 UNIT/0.01 ML UNIT SQ SCH ×4 (05:55→23:53)
[2019-11-17 06:44] LABS: Basophils # (Auto) 0.01 K/mcL (0.00-0.30); Basophils % (Auto) 0.2 % (0.0-2.0); Eosinophils # (Auto) 0 K/mcL (0.00-0.70); Eosinophils % (Auto) 0 % (0.0-7.0); Granulocytes % (Auto) 91.2 % (38.0-78.0); Hematocrit 36.5 % (34.1-44.9); Hemoglobin 11.7 g/dL (11.2-15.7); Lymphocytes # (Auto) 0.45 K/mcL (1.50-4.80); Lymphocytes % (Auto) 7.2 % (15.5-49.0); Mean Corpuscular HGB Conc 32.1 g/dL (31.0-36.0); Mean Platelet Volume 9.4 fL (7.4-10.4); Monocytes # (Auto) 0.09 K/mcL (0.10-0.90); Monocytes % (Auto) 1.4 % (1.0-12.0); Platelet Count 280 K/mcL (140-440); RBC 4.15 M/mcL (3.59-5.38); Red Cell Distribution Width 15.7 % (11.5-14.5); WBC 6.2 K/mcL (4.50-11.00)
[2019-11-17 07:28] LABS: ALT/SGPT 27 U/l (0-40); AST/SGOT 18 U/l (0-37); Albumin 2.8 gm/dL (3.2-5.2); Alkaline Phosphatase 89 U/L (39-117); Bilirubin,Direct < 0.2 mg/dL (0.0-0.3); Bilirubin,Total 0.2 mg/dL (0.0-1.0); Blood Urea Nitrogen 6 mg/dl (6-20); Calcium 6.4 mg/dl (8.6-10.4); Carbon Dioxide 22 mmol/L (22-30); Glomerular Filtration Rate 101; Glucose 174 mg/dL (70-105); Lactate Dehydrogenase 248 U/L (94-250); Phosphorous 4.2 mg/dL (2.7-4.5); Triglycerides 117 mg/dl (<150); Uric Acid 5.9 mg/dL (2.5-8.0)
[2019-11-17 07:33] LABS: Albumin/Globulin Ratio 1.1 (1.0-2.3); Chloride 95 mmol/L (96-108); Globulin 2.6 gm/dL (2.2-3.7)
--- NOTE | 2019-11-17 07:55 | XRay Report ---
CLINICAL INFORMATION: Abdominal pain and distention COMPARISON: 11/16/2019 FINDINGS: NG tube overlies the gastric body. The stomach and proximal small bowel are only mildly dilated with scattered air-fluid levels. Findings compatible with improving partial small bowel obstruction and no free air or soft tissue mass IMPRESSION: Improving partial small bowel obstruction Interpreted and Authenticated by: All Lundberg 11/17/19
[2019-11-17] MEDS: methylPREDNISolone SOD SUCC 125 MG/2 ML VIAL IV SCH ×2 (09:32→20:26)
[2019-11-17] MEDS: ENOXAPARIN 40 MG/0.4 ML SYRINGE SQ SCH (09:34)
[2019-11-17] MEDS ORDERED: MAGNESIUM SULFATE 32.48 MEQ in DEXTROSE 5% IN WATER 50 ML IV SCH (11:23)
[2019-11-17] MEDS: PYRIDOSTIGMINE BROMIDE 10 MG/2 ML ML IM SCH ×3 (12:25→23:47)
[2019-11-17] MEDS: MAGNESIUM SULFATE 4 GM/100 ML BAG IV SCH (12:27)
[2019-11-17] MEDS: CALCIUM GLUCONATE 9.3 MEQ in DEXTROSE 5% IN WATER 100 ML IV SCH (12:27)
--- NOTE | 2019-11-17 17:16 | General Surgery Progress Note ---
Subjective Patient reports: feels better, pain is less, flatus, bowel movement, nausea, afebrile Narrative: Note initiated : 11/17/19 at 5:12 pm Service Date, if different from initiated Date: [] Patient: Dayanna Stephens 58 y/o F admitted on 11/16/19 for right flank pain, vomiting, abdominal pain. Chief Complaint: [patient is slowly improving. SHe has had more output through her stoma and her abdomen is much less distended. Abdominal x-rays show significant reduction in gas in her stomach and small bowel. White blood count 6, hemoglobin 11.7, hematocrit 36.5, calcium 6.4, magnesium 1.1] Objective Temp Pulse Resp BP Pulse Ox 96.5 F L 98 H 16 132/85 99 11/17/19 08:00 11/17/19 12:00 11/17/19 12:00 11/17/19 12:00 11/17/19 12:00 - Additional Data Intake & Output - Last 24 hours: Intake & Output 11/15/19 11/16/19 11/17/19 11/18/19 05:59 05:59 05:59 05:59 Intake Total 3340 1520 Output Total 1450 1350 Balance 1890 170 Weight 218 lb 4.8 oz 218 lb 4.8 oz - General physical appearance well developed, well nourished, no distress - Eyes PERRL, normal ocular movement - ENT normal pinna, normal nares, normal mucosa, no hearing loss, no congestion - Neck no masses, no bruits, trachea midline, no lymphadenopathy, no venous distension - Respiratory normal expansion, normal respiratory effort, clear to auscultation - Cardiovascular Cardiovascular exam: Present: normal rate and rhythm, +S1, +S2. Absent: JVD, RRR - Abdomen non tender, bowel sounds (present), surgical scars (none), masses (none) - Integumentary no rash, no growths, no abnormal pigmentation - Neurologic normal coordination, normal sensation - Musculoskeletal normal gait, normal posture - Psychiatric oriented to time, oriented to person, oriented to place, speech is normal, memory intact - Labs 11/17/19 05:00 11/17/19 05:00 Diabetes panel 11/17/19 Range/Units 05:00 Sodium 131 L (133-145) mmol/L Potassium 4.0 (3.3-5.1) mmol/L Chloride 95 L (96-108) mmol/L Carbon Dioxide 22 (22-30) mmol/L BUN 6 (6-20) mg/dl Creatinine 0.6 (0.6-1.1) mg/dl Glucose 174 H (70-105) mg/dL Calcium 6.4 L (8.6-10.4) mg/dl AST 18 (0-37) U/l ALT 27 (0-40) U/l Alkaline Phosphatase 89 (39-117) U/L Total Protein 5.4 L (5.9-8.4) gm/dL Albumin 2.8 L (3.2-5.2) gm/dL Triglycerides 117 (<150) mg/dl Calcium panel 11/17/19 Range/Units 05:00 Calcium 6.4 L (8.6-10.4) mg/dl Phosphorus 4.2 (2.7-4.5) mg/dL Albumin 2.8 L (3.2-5.2) gm/dL Pituitary panel 11/17/19 Range/Units 05:00 Sodium 131 L (133-145) mmol/L Potassium 4.0 (3.3-5.1) mmol/L Chloride 95 L (96-108) mmol/L Carbon Dioxide 22 (22-30) mmol/L BUN 6 (6-20) mg/dl Creatinine 0.6 (0.6-1.1) mg/dl Glucose 174 H (70-105) mg/dL Calcium 6.4 L (8.6-10.4) mg/dl Adrenal panel 11/17/19 Range/Units 05:00 Sodium 131 L (133-145) mmol/L Potassium 4.0 (3.3-5.1) mmol/L Chloride 95 L (96-108) mmol/L Carbon Dioxide 22 (22-30) mmol/L BUN 6 (6-20) mg/dl Creatinine 0.6 (0.6-1.1) mg/dl Glucose 174 H (70-105) mg/dL Calcium 6.4 L (8.6-10.4) mg/dl Total Bilirubin 0.2 (0.0-1.0) mg/dL AST 18 (0-37) U/l ALT 27 (0-40) U/l Alkaline Phosphatase 89 (39-117) U/L Total Protein 5.4 L (5.9-8.4) gm/dL Albumin 2.8 L (3.2-5.2) gm/dL Assessment and Plan (1) Chronic intestinal pseudo-obstruction Status: Chronic Assessment and plan: Patient is clinically improving. We'll give calcium gluconate until she is able to take by mouth Replace magnesium and potassium phosphate IV Current Visit: No (2) LA (obstructive sleep apnea) Status: Chronic Current Visit: No (3) Hypertension Status: Chronic Current Visit: No (4) Sinus tachycardia Status: Resolved Current Visit: No - Time Spent With Patient Total time spent is greater than 50% in coordination of care (as documented) at patient's floor/unit and/or counseling patient:
[2019-11-18] MEDS: LACTATED RINGERS 1,000 ML IV SCH ×4 (01:08→21:29)
[2019-11-18] MEDS: HYDROmorphone 2 MG/ML VIAL IV PRN ×6 (02:42→20:31)
[2019-11-18] MEDS: PYRIDOSTIGMINE BROMIDE 10 MG/2 ML ML IM SCH ×4 (05:45→23:19)
[2019-11-18] MEDS: INSULIN LISPRO 1 UNIT/0.01 ML UNIT SQ SCH ×4 (05:45→23:35)
[2019-11-18] MEDS: 0.9 % SODIUM CHLORIDE 10 ML SYRINGE IV SCH ×3 (06:58→20:36)
[2019-11-18] MEDS ORDERED: CALCIUM GLUCONATE 4.65 MEQ/10 ML VIAL ONE (08:36)
[2019-11-18] MEDS: methylPREDNISolone SOD SUCC 125 MG/2 ML VIAL IV SCH ×2 (08:53→20:31)
[2019-11-18] MEDS: ENOXAPARIN 40 MG/0.4 ML SYRINGE SQ SCH (08:54)
[2019-11-18] MEDS ORDERED: CALCIUM GLUCONATE 4.65 MEQ/10 ML VIAL IV SCH (09:00)
[2019-11-18] MEDS ORDERED: ACETAMINOPHEN 1,000 MG in PREMIX 1 BAG IV SCH (10:15)
[2019-11-18] MEDS: CALCIUM GLUCONATE 9.3 MEQ in DEXTROSE 5% IN WATER 100 ML IV SCH (10:54)
[2019-11-18] MEDS: MAGNESIUM SULFATE 4 GM/100 ML BAG IV SCH ×2 (10:55→14:55)
--- NOTE | 2019-11-18 11:54 | XRay Report ---
CLINICAL INFORMATION: FOLLOW -UP OF SMALL BOWEL OBSTRUCTION COMPARISON: 11/17/2019 FINDINGS: NG tube overlies the gastric antrum. The stomach and upper small bowel are mildly dilated but improved from yesterday. Small amount of gas seen in the distal small bowel. No free air IMPRESSION: Improving distal small bowel obstruction Interpreted and Authenticated by: lAl Lundberg 11/18/19
[2019-11-18] MEDS: ACETAMINOPHEN 1,000 MG/100 ML BOTTLE IV SCH ×4 (12:30→23:20)
[2019-11-18] MEDS: KETOROLAC 30 MG/ML VIAL IV SCH ×3 (12:30→23:35)
[2019-11-18 13:15] LABS: Basophils # (Auto) 0.01 K/mcL (0.00-0.30); Basophils % (Auto) 0.2 % (0.0-2.0); Eosinophils # (Auto) 0.01 K/mcL (0.00-0.70); Eosinophils % (Auto) 0.2 % (0.0-7.0); Granulocytes % (Auto) 79.1 % (38.0-78.0); Hematocrit 34.4 % (34.1-44.9); Hemoglobin 11.1 g/dL (11.2-15.7); Lymphocytes # (Auto) 0.58 K/mcL (1.50-4.80); Lymphocytes % (Auto) 12.1 % (15.5-49.0); Mean Cell Volume 87.3 fL (80.0-100.0); Mean Corpuscular HGB Conc 32.3 g/dL (31.0-36.0); Mean Platelet Volume 9.1 fL (7.4-10.4); Monocytes % (Auto) 8.4 % (1.0-12.0); Platelet Count 305 K/mcL (140-440); RBC 3.94 M/mcL (3.59-5.38); Red Cell Distribution Width 15.3 % (11.5-14.5); WBC 4.8 K/mcL (4.50-11.00)
[2019-11-18 13:23] LABS: ALT/SGPT 23 U/l (0-40); AST/SGOT 13 U/l (0-37); Albumin 3.1 gm/dL (3.2-5.2); Albumin/Globulin Ratio 1.3 (1.0-2.3); Alkaline Phosphatase 80 U/L (39-117); Bilirubin,Direct < 0.2 mg/dL (0.0-0.3); Bilirubin,Total 0.2 mg/dL (0.0-1.0); Blood Urea Nitrogen 5 mg/dl (6-20); Calcium 7.6 mg/dl (8.6-10.4); Carbon Dioxide 26 mmol/L (22-30); Chloride 96 mmol/L (96-108); Globulin 2.4 gm/dL (2.2-3.7); Glomerular Filtration Rate 107; Glucose 146 mg/dL (70-105); Lactate Dehydrogenase 270 U/L (94-250); Phosphorous 3.1 mg/dL (2.7-4.5); Triglycerides 136 mg/dl (<150); Uric Acid 6.4 mg/dL (2.5-8.0)
--- NOTE | 2019-11-18 16:46 | General Surgery Progress Note ---
Subjective Patient reports: feels better, pain is less, flatus, bowel movement, diarrhea, afebrile Narrative: Note initiated : 11/18/19 at 4:43 pm Service Date, if different from initiated Date: [] Patient: Dayanna Stephens 58 y/o F admitted on 11/16/19 for right flank pain, vomiting, abdominal pain. Chief Complaint: [Patient continues to improve. She is more help with her ileostomy. She denies nausea. White blood count 4.8, hemoglobin 11.1, hematocrit 34.4, BUN 5, creatinine 0.5, magnesium 1.5. Abdominal x-ray reveals continued decrease in small bowel dilation.] Objective Temp Pulse Resp BP Pulse Ox 97.9 F 74 16 171/89 97 11/18/19 16:41 11/18/19 12:00 11/18/19 12:00 11/18/19 12:00 11/18/19 12:00 - Additional Data Intake & Output - Last 24 hours: Intake & Output 11/16/19 11/17/19 11/18/19 11/19/19 05:59 05:59 05:59 05:59 Intake Total 3340 2820 0 Output Total 1450 2700 250 Balance 1890 120 -250 Weight 218 lb 4.8 oz 217 lb 6.4 oz - General physical appearance well developed, well nourished, no distress, chronically ill, obese - Eyes PERRL, normal ocular movement - ENT normal pinna, normal nares, normal mucosa, no hearing loss, no congestion - Neck no masses, no bruits, trachea midline, no lymphadenopathy, no venous distension - Respiratory normal expansion, normal respiratory effort, clear to auscultation - Cardiovascular Cardiovascular exam: Present: normal rate and rhythm, RRR, +S1, +S2. Absent: JVD, tachycardia - Abdomen non tender, bowel sounds (present), surgical scars (none), masses (none), distended (mild distention, but minimal tenderness; good active bowel sounds; s caty looks good) - Rectum normal sphincter tone, no hemorrhoids, no tenderness, no masses, no bleeding - Integumentary no rash, no growths, no abnormal pigmentation - Neurologic normal coordination, normal sensation - Musculoskeletal normal gait, normal posture - Psychiatric oriented to time, oriented to person, oriented to place, speech is normal, memory intact - Labs 11/18/19 12:00 11/18/19 12:00 Diabetes panel 11/18/19 Range/Units 12:00 Sodium 139 (133-145) mmol/L Potassium 3.4 (3.3-5.1) mmol/L Chloride 96 (96-108) mmol/L Carbon Dioxide 26 (22-30) mmol/L BUN 5 L (6-20) mg/dl Creatinine 0.5 L (0.6-1.1) mg/dl Glucose 146 H (70-105) mg/dL Calcium 7.6 L (8.6-10.4) mg/dl AST 13 (0-37) U/l ALT 23 (0-40) U/l Alkaline Phosphatase 80 (39-117) U/L Total Protein 5.5 L (5.9-8.4) gm/dL Albumin 3.1 L (3.2-5.2) gm/dL Triglycerides 136 (<150) mg/dl Calcium panel 11/18/19 Range/Units 12:00 Calcium 7.6 L (8.6-10.4) mg/dl Phosphorus 3.1 (2.7-4.5) mg/dL Albumin 3.1 L (3.2-5.2) gm/dL Pituitary panel 11/18/19 Range/Units 12:00 Sodium 139 (133-145) mmol/L Potassium 3.4 (3.3-5.1) mmol/L Chloride 96 (96-108) mmol/L Carbon Dioxide 26 (22-30) mmol/L BUN 5 L (6-20) mg/dl Creatinine 0.5 L (0.6-1.1) mg/dl Glucose 146 H (70-105) mg/dL Calcium 7.6 L (8.6-10.4) mg/dl Adrenal panel 11/18/19 Range/Units 12:00 Sodium 139 (133-145) mmol/L Potassium 3.4 (3.3-5.1) mmol/L Chloride 96 (96-108) mmol/L Carbon Dioxide 26 (22-30) mmol/L BUN 5 L (6-20) mg/dl Creatinine 0.5 L (0.6-1.1) mg/dl Glucose 146 H (70-105) mg/dL Calcium 7.6 L (8.6-10.4) mg/dl Total Bilirubin 0.2 (0.0-1.0) mg/dL AST 13 (0-37) U/l ALT 23 (0-40) U/l Alkaline Phosphatase 80 (39-117) U/L Total Protein 5.5 L (5.9-8.4) gm/dL Albumin 3.1 L (3.2-5.2) gm/dL Assessment and Plan (1) Chronic intestinal pseudo-obstruction Status: Chronic Assessment and plan: Patient is clinically improving. We'll give calcium gluconate until she is able to take by mouth Replace magnesium and potassium phosphate IV Current Visit: No (2) [place] (obstructive sleep apnea) Status: Chronic Assessment and plan: We'll continue oxygen supplement at night Current Visit: No (3) Hypertension Status: Chronic Current Visit: No (4) Sinus tachycardia Status: Resolved Current Visit: No - Time Spent With Patient Total time spent is greater than 50% in coordination of care (as documented) at patient's floor/unit and/or counseling patient:
[2019-11-18] MEDS: POLYETHYLENE GLYCOL 3350 17 GM PACKET PO SCH ×2 (17:58→21:28)
[2019-11-19] MEDS: LACTATED RINGERS 1,000 ML IV SCH ×3 (00:08→16:18)
[2019-11-19] MEDS: POLYETHYLENE GLYCOL 3350 17 GM PACKET PO SCH ×2 (02:23→05:47)
[2019-11-19] MEDS: HYDROmorphone 2 MG/ML VIAL IV PRN ×5 (02:24→22:14)
[2019-11-19] MEDS: PYRIDOSTIGMINE BROMIDE 10 MG/2 ML ML IM SCH ×4 (05:47→23:50)
[2019-11-19] MEDS: KETOROLAC 30 MG/ML VIAL IV SCH ×4 (05:47→23:54)
[2019-11-19] MEDS: ACETAMINOPHEN 1,000 MG/100 ML BOTTLE IV SCH (05:48)
[2019-11-19] MEDS: 0.9 % SODIUM CHLORIDE 10 ML SYRINGE IV SCH ×3 (05:49→21:58)
[2019-11-19] MEDS: INSULIN LISPRO 1 UNIT/0.01 ML UNIT SQ SCH ×4 (05:54→22:04)
[2019-11-19] MEDS: CALCIUM GLUCONATE 9.3 MEQ in DEXTROSE 5% IN WATER 100 ML IV SCH ×2 (06:57→07:15)
[2019-11-19 07:15] LABS: Basophils # (Auto) 0 K/mcL (0.00-0.30); Basophils % (Auto) 0 % (0.0-2.0); Eosinophils # (Auto) 0 K/mcL (0.00-0.70); Eosinophils % (Auto) 0 % (0.0-7.0); Hematocrit 32.4 % (34.1-44.9); Hemoglobin 10.6 g/dL (11.2-15.7); Lymphocytes # (Auto) 0.68 K/mcL (1.50-4.80); Lymphocytes % (Auto) 24.8 % (15.5-49.0); Mean Cell Volume 86.4 fL (80.0-100.0); Mean Corpuscular HGB Conc 32.7 g/dL (31.0-36.0); Mean Platelet Volume 9.1 fL (7.4-10.4); Monocytes # (Auto) 0.17 K/mcL (0.10-0.90); Monocytes % (Auto) 6.2 % (1.0-12.0); Platelet Count 298 K/mcL (140-440); RBC 3.75 M/mcL (3.59-5.38); Red Cell Distribution Width 15.4 % (11.5-14.5); WBC 2.7 K/mcL (4.50-11.00)
[2019-11-19] MEDS ORDERED: MAGNESIUM SULFATE 32.48 MEQ in DEXTROSE 5% IN WATER 50 ML IV ONE (08:00)
[2019-11-19 08:07] LABS: ALT/SGPT 21 U/l (0-40); AST/SGOT 13 U/l (0-37); Albumin/Globulin Ratio 1.4 (1.0-2.3); Alkaline Phosphatase 77 U/L (39-117); Bilirubin,Direct < 0.2 mg/dL (0.0-0.3); Bilirubin,Total < 0.2 mg/dL (0.0-1.0); Blood Urea Nitrogen 5 mg/dl (6-20); Calcium 7.1 mg/dl (8.6-10.4); Carbon Dioxide 30 mmol/L (22-30); Globulin 2.1 gm/dL (2.2-3.7); Glomerular Filtration Rate 107; Glucose 148 mg/dL (70-105); Lactate Dehydrogenase 274 U/L (94-250); Phosphorous 3.6 mg/dL (2.7-4.5); Triglycerides 139 mg/dl (<150); Uric Acid 5.6 mg/dL (2.5-8.0)
[2019-11-19 08:08] LABS: Chloride 95 mmol/L (96-108)
[2019-11-19] MEDS: methylPREDNISolone SOD SUCC 125 MG/2 ML VIAL IV SCH ×2 (08:11→21:57)
[2019-11-19] MEDS: ENOXAPARIN 40 MG/0.4 ML SYRINGE SQ SCH (08:12)
[2019-11-19] MEDS ORDERED: MAGNESIUM SULFATE 4 GM/100 ML BAG IV ONE (09:00)
--- NOTE | 2019-11-19 09:48 | XRay Report ---
CLINICAL INFORMATION: FOLLOW -UP OF SMALL BOWEL OBSTRUCTION COMPARISON: 11/18/2019 FINDINGS: NG tube now out. The stomach and loops of small bowel in the upper abdomen show slight increase in caliber now and are now mildly dilated air-fluid levels. No free air. IMPRESSION: Possible recurrent distal small bowel obstruction developing. Interpreted and Authenticated by: All Lundberg 11/19/19
--- NOTE | 2019-11-19 17:06 | General Surgery Progress Note ---
Subjective Patient reports: feels better, pain is less, tolerating liquids well, flatus, bowel movement, diarrhea, afebrile Narrative: Note initiated : 11/19/19 at 5:04 pm Service Date, if different from initiated Date: [] Patient: Dayanna Stephens 58 y/o F admitted on 11/16/19 for right flank pain, vomiting, abdominal pain. Chief Complaint: [Patient continues to feel better. She's had continued output through her stoma and she's passed large volume of flatus. Abdominal x-ray this morning is significantly improved with him only mild dilation of small bowel in midabdomen. She denies abdominal tenderness. White blood count 2.7, hemoglobin 10.6, hematocrit 32.4, calcium 7.1.] Objective Temp Pulse Resp BP Pulse Ox 98.0 F 65 20 149/62 98 11/19/19 12:00 11/19/19 12:00 11/19/19 12:00 11/19/19 12:00 11/19/19 12:00 - Additional Data Intake & Output - Last 24 hours: Intake & Output 11/17/19 11/18/19 11/19/19 11/20/19 05:59 05:59 05:59 05:59 Intake Total 3340 2820 3260 Output Total 1450 2700 2450 325 Balance 1890 120 810 -325 Weight 218 lb 4.8 oz 217 lb 6.4 oz 215 lb 9.6 oz - General physical appearance well developed, well nourished, no distress - Eyes PERRL, normal ocular movement - ENT normal pinna, normal nares, normal mucosa, no hearing loss, no congestion - Neck no masses, no bruits, trachea midline, no lymphadenopathy, no venous distension - Respiratory normal expansion, normal respiratory effort, clear to auscultation - Cardiovascular Cardiovascular exam: Present: normal rate and rhythm, +S1, +S2. Absent: JVD, RRR, tachycardia - Abdomen non tender, bowel sounds (present), surgical scars (none), masses (none) - Integumentary no rash, no growths, no abnormal pigmentation - Neurologic normal coordination, normal sensation - Musculoskeletal normal gait, normal posture - Psychiatric oriented to time, oriented to person, oriented to place, speech is normal, memory intact - Labs 11/19/19 05:00 11/19/19 05:00 Diabetes panel 11/19/19 Range/Units 05:00 Sodium 137 (133-145) mmol/L Potassium 3.5 (3.3-5.1) mmol/L Chloride 95 L (96-108) mmol/L Carbon Dioxide 30 (22-30) mmol/L BUN 5 L (6-20) mg/dl Creatinine 0.5 L (0.6-1.1) mg/dl Glucose 148 H (70-105) mg/dL Calcium 7.1 L (8.6-10.4) mg/dl AST 13 (0-37) U/l ALT 21 (0-40) U/l Alkaline Phosphatase 77 (39-117) U/L Total Protein 5.1 L (5.9-8.4) gm/dL Albumin 3.0 L (3.2-5.2) gm/dL Triglycerides 139 (<150) mg/dl Calcium panel 11/19/19 Range/Units 05:00 Calcium 7.1 L (8.6-10.4) mg/dl Phosphorus 3.6 (2.7-4.5) mg/dL Albumin 3.0 L (3.2-5.2) gm/dL Pituitary panel 11/19/19 Range/Units 05:00 Sodium 137 (133-145) mmol/L Potassium 3.5 (3.3-5.1) mmol/L Chloride 95 L (96-108) mmol/L Carbon Dioxide 30 (22-30) mmol/L BUN 5 L (6-20) mg/dl Creatinine 0.5 L (0.6-1.1) mg/dl Glucose 148 H (70-105) mg/dL Calcium 7.1 L (8.6-10.4) mg/dl Adrenal panel 11/19/19 Range/Units 05:00 Sodium 137 (133-145) mmol/L Potassium 3.5 (3.3-5.1) mmol/L Chloride 95 L (96-108) mmol/L Carbon Dioxide 30 (22-30) mmol/L BUN 5 L (6-20) mg/dl Creatinine 0.5 L (0.6-1.1) mg/dl Glucose 148 H (70-105) mg/dL Calcium 7.1 L (8.6-10.4) mg/dl Total Bilirubin < 0.2 (0.0-1.0) mg/dL AST 13 (0-37) U/l ALT 21 (0-40) U/l Alkaline Phosphatase 77 (39-117) U/L Total Protein 5.1 L (5.9-8.4) gm/dL Albumin 3.0 L (3.2-5.2) gm/dL Assessment and Plan (1) Chronic intestinal pseudo-obstruction Status: Chronic Assessment and plan: Patient is clinically improving. Diet will be advanced to GI soft Urine for C&S will be repeated Current Visit: No (2) [place] (obstructive sleep apnea) Status: Chronic Assessment and plan: We'll continue oxygen supplement at night Current Visit: No (3) Hypertension Status: Chronic Current Visit: No (4) Sinus tachycardia Status: Resolved Current Visit: No - Time Spent With Patient Total time spent is greater than 50% in coordination of care (as documented) at patient's floor/unit and/or counseling patient:
[2019-11-19 19:05] LABS: Appearance,Urine CLEAR; Bacteria,Urine 0 /hpf (0); Bilirubin,Urine NEG (NEG); Color,Urine YELLOW; Culture Indicated,Urine NO; Glucose,Urine (UA) NEGATIVE (NEG); Ketones,Urine NEG (NEG); Leukocyte Esterase,Urine NEG /uL (NEG); Mucus,Urine MOD /hpf (0); Nitrate,Urine NEG (NEG); Protein,Urine NEG (NEG); Specific Gravity,Urine 1.013 (1.000-1.035); Urine Blood NEG mg/dL (<0.03); Urine Hyaline Cast 24 /lpf (0-2); Urine RBC < 1 /hpf (0-1); Urine Squamous Epithelial Cell 2 /hpf (0-4); Urine Transitional Epi Cells < 1 /hpf (0-2); Urine WBC 2 /hpf (0-4); Urobilinogen,Urine NEG (NEG)
[2019-11-20] MEDS: LACTATED RINGERS 1,000 ML IV SCH ×2 (01:05→12:45)
[2019-11-20] MEDS: HYDROmorphone 2 MG/ML VIAL IV PRN ×3 (04:08→11:55)
[2019-11-20] MEDS: PYRIDOSTIGMINE BROMIDE 10 MG/2 ML ML IM SCH ×2 (06:13→11:16)
[2019-11-20] MEDS: KETOROLAC 30 MG/ML VIAL IV SCH (06:13)
[2019-11-20] MEDS: 0.9 % SODIUM CHLORIDE 10 ML SYRINGE IV SCH ×2 (06:14→13:46)
[2019-11-20] MEDS: INSULIN LISPRO 1 UNIT/0.01 ML UNIT SQ SCH ×2 (07:57→11:16)
--- NOTE | 2019-11-20 08:01 | XRay Report ---
CLINICAL INFORMATION: FOLLOW -UP OF SMALL BOWEL OBSTRUCTION COMPARISON: 11/19/2019 FINDINGS: Stool gas pattern returned to normal. No free air, soft tissue mass or pathologic calcification. IMPRESSION: Negative Interpreted and Authenticated by: All Lundberg 11/20/19
[2019-11-20 08:05] LABS: ALT/SGPT 24 U/l (0-40); AST/SGOT 13 U/l (0-37); Albumin/Globulin Ratio 1.4 (1.0-2.3); Alkaline Phosphatase 74 U/L (39-117); Bilirubin,Direct < 0.2 mg/dL (0.0-0.3); Bilirubin,Total 0.2 mg/dL (0.0-1.0); Carbon Dioxide 31 mmol/L (22-30); Chloride 97 mmol/L (96-108); Globulin 2.2 gm/dL (2.2-3.7); Glomerular Filtration Rate 101; Glucose 197 mg/dL (70-105); Lactate Dehydrogenase 299 U/L (94-250); Phosphorous 3.7 mg/dL (2.7-4.5); Triglycerides 162 mg/dl (<150); Uric Acid 4.3 mg/dL (2.5-8.0)
[2019-11-20 08:11] LABS: Blood Urea Nitrogen 7 mg/dl (6-20)
[2019-11-20] MEDS: ENOXAPARIN 40 MG/0.4 ML SYRINGE SQ SCH (08:52)
[2019-11-20] MEDS: methylPREDNISolone SOD SUCC 125 MG/2 ML VIAL IV SCH (08:52)
[2019-11-20] MEDS: CALCIUM GLUCONATE 9.3 MEQ in DEXTROSE 5% IN WATER 100 ML IV SCH (08:53)
--- NOTE | 2019-11-20 14:37 | Discharge Summary ---
Providers - Providers Patient information: Note initiated : 11/20/19 at 2:35 pm Service Date, if different from initiated Date: [] Patient: Dayanna Stephens 58 y/o F admitted on 11/16/19 for right flank pain, vomiting, abdominal pain. Chief Complaint: [] Date of admission: 11/16/19 Discharge date: 11/20/19 Attending physician: Bertha Currie Hospitalization Hospital Course: 58-year-old female with history of chronic intestinal pseudoobstruction. Patient was recently hospitalized in October with recurrent episodes of intestinal obstruction due to intestinal atony. She was discharged home in s atisfactory condition. She presents with a 24-hour history of increasing abdominal distention with nausea and vomiting. She has not had flatus or stool through her stoma. She has significant abdominal distention. Abdominal x-rays show(severe dilation of stomach and residual small bowel. Patient has had multiple episodes of this and will be admitted for bowel decompression and support until she gets return of intestinal function. Patient gradually improved and started having output through her stoma . After about 24 hours. Her abdomen became less distended and abdominal x-ray shows si gnificant reduction in gas in her stomach and small bowel. This improved over the next 2 days and her diet was advanced. At this time she is clinically stable. She is not having any abdominal symptoms. She denies abdominal pain, and her stoma is functioning normal. Abdominal x-rays show very small amount of gas in her mid small bowel but in a nonobstructive pattern. She is stable for Discharge home. Discharge diagnosis: recurrent intestinal pseudoobstruction Secondary discharge diagnosis: Myasthenia gravis. Diabetes mellitus. Chronic obstructive sleep apnea Hypertension. Recurrent sinus tachycardia Reason for admission: abdominal pain, nausea, vomiting Procedures: None Pertinent studies/significant findings: None Complications: None Exam Temp Pulse Resp BP Pulse Ox 98.4 F 75 18 152/91 93 11/20/19 11:10 11/20/19 11:10 11/20/19 11:10 11/20/19 11:10 11/20/19 11:10 - General physical appearance well developed, well nourished, no distress - Eyes PERRL, normal ocular movement - ENT normal pinna, normal nares, normal mucosa, no hearing loss, no congestion - Head Head exam IM: Present: atraumatic, normocephalic - Neck no masses, no bruits, trachea midline, no lymphadenopathy, no venous distension - Cardiovascular Cardiovascular exam IM: Present: normal rate and rhythm, RRR, +S1, +S2. Absent: JVD, tachycardia - Respiratory normal expansion, normal respiratory effort, clear to percussion, clear to auscultation - Abdomen Abdomen: Present: soft (that is on), non tender, bowel sounds Hernia: Present: none - Genitourinary Present: normal external genitalia - Integumentary Present: no rash, no growths, no abnormal pigmentation - Neurologic Present: normal coordination, normal sensation - Musculoskeletal Present: normal gait, normal posture - Psychiatric Present: oriented to time, oriented to person, oriented to place, speech is normal, memory intact Discharge Plan - Patient/Caregiver Discharge Instructions Activity: increase activity as tolerated Diet: Regular Diet Additional Instructions: No change in activity - Follow up Plan Follow up with: Douglas Haque MD [Primary Care Provider] - (Follow up as needed.) Disposition: Home, Self-Care Care Plan Goals: This discharge packet is provided to you to help keep you informed about your care. We want to ensure you get everything you need when you go home. You will also be receiving a call from us in a few days to follow up with you and see how you are doing since your discharge. This gives us a chance to listen to any concerns you maybe experiencing since you were discharged or any additional needs you may have, as well as providing us feedback on your care experience. We strive to always provide excellent care and thank you for your feedback and for choosing [facility]. Prognosis: Good Rehab Potential: Good I certify that the patient requires SNF services.: No Overall status at discharge: patient is back to baseline Pending Studies Resuscitation Status Full Code Diet GI Soft/Transitional Start Unique Nov 19 170 Diagnostic Test (Pha) (Accu-Chek) 1 each FS ACHS [facility] Last Admin: 11/20/19 11:16 Dose: 1 each Documented by: СЕРГЕЙ Admin: 11/20/19 07:57 Dose: 1 each Documented by: СЕРГЕЙ Admin: 11/19/19 22:02 Dose: 1 each Documented by: ETHAN Enoxaparin Sodium (Lovenox) 40 mg SQ DAILY [facility] Last Admin: 11/20/19 08:52 Dose: 40 mg Documented by: СЕРГЕЙ Admin: 11/19/19 08:12 Dose: 40 mg Documented by: Admin: 11/18/19 08:54 Dose: 40 mg Documented by: Admin: 11/17/19 09:34 Dose: 40 mg Documented by: DEENA Hydromorphone HCl (Dilaudid) 1 mg IV Q2HP PRN; Protocol PRN Reason: Per Pain Protocol Last Admin: 11/20/19 11:55 Dose: 1 mg Documented by: СЕРГЕЙ Admin: 11/20/19 07:58 Dose: 1 mg Documented by: СЕРГЕЙ Admin: 11/20/19 04:08 Dose: 1 mg Documented by: Admin: 11/19/19 22:14 Dose: 1 mg Documented by: Admin: 11/19/19 17:41 Dose: 1 mg Documented by: Admin: 11/19/19 14:23 Dose: 1 mg Documented by: Admin: 11/19/19 08:32 Dose: 1 mg Documented by: Admin: 11/19/19 02:24 Dose: 1 mg Documented by: Admin: 11/18/19 20:31 Dose: 1 mg Documented by: Admin: 11/18/19 17:12 Dose: 1 mg Documented by: Admin: 11/18/19 12:29 Dose: 1 mg Documented by: Admin: 11/18/19 08:54 Dose: 1 mg Documented by: Admin: 11/18/19 05:20 Dose: 1 mg Documented by: Admin: 11/18/19 02:42 Dose: 1 mg Documented by: Admin: 11/17/19 22:47 Dose: 1 mg Documented by: Admin: 11/17/19 20:11 Dose: 1 mg Documented by: Admin: 11/17/19 16:30 Dose: 1 mg Documented by: Admin: 11/17/19 12:24 Dose: 1 mg Documented by: Admin: 11/17/19 09:33 Dose: 1 mg Documented by: Admin: 11/17/19 05:42 Dose: 1 mg Documented by: Admin: 11/17/19 02:37 Dose: 1 mg Documented by: Admin: 11/16/19 23:11 Dose: 1 mg Documented by: Admin: 11/16/19 19:53 Dose: 1 mg Documented by: DIONICIO Lactated Ringer's (Lactated Ringers) 1,000 mls @ 125 mls/hr IV .Q8H [facility] Admin: 11/20/19 12:45 Dose: 125 mls/hr Documented by: Infusion: 11/20/19 09:05 Dose: 125 mls/hr Documented by: Admin: 11/20/19 01:05 Dose: 125 mls/hr Documented by: Infusion: 11/20/19 00:18 Dose: 125 mls/hr Documented by: Admin: 11/19/19 16:18 Dose: 125 mls/hr Documented by: Admin: 11/19/19 06:59 Dose: Not Given Documented by: Infusion: 11/19/19 05:29 Dose: 125 mls/hr Documented by: Admin: 11/19/19 00:08 Dose: Not Given Documented by: Admin: 11/18/19 21:29 Dose: 125 mls/hr Documented by: Admin: 11/18/19 16:46 Dose: Not Given Documented by: Admin: 11/18/19 10:44 Dose: Not Given Documented by: Infusion: 11/18/19 06:16 Dose: 125 mls/hr Documented by: Admin: 11/18/19 01:08 Dose: Not Given Documented by: Admin: 11/17/19 22:16 Dose: 125 mls/hr Documented by: Infusion: 11/17/19 20:26 Dose: 125 mls/hr Documented by: Admin: 11/17/19 16:35 Dose: Not Given Documented by: Admin: 11/17/19 12:26 Dose: 125 mls/hr Documented by: Infusion: 11/17/19 12:26 Dose: 125 mls/hr Documented by: Admin: 11/17/19 04:04 Dose: 125 mls/hr Documented by: Infusion: 11/17/19 03:52 Dose: 125 mls/hr Documented by: Admin: 11/16/19 19:52 Dose: 125 mls/hr Documented by: DIONICIO Calcium Gluconate 9.3 meq/ (Dextrose) 120 mls @ 60 mls/hr IV DAILY [facility] Last Admin: 11/20/19 08:53 Dose: 60 mls/hr Documented by: СЕРГЕЙ Infusion: 11/19/19 08:57 Dose: 60 mls/hr Documented by: СЕРГЕЙ Admin: 11/19/19 07:15 Dose: Not Given Documented by: Admin: 11/19/19 06:57 Dose: 60 mls/hr Documented by: Infusion: 11/18/19 23:27 Dose: 0 mls/hr Documented by: Admin: 11/18/19 10:54 Dose: 60 mls/hr Documented by: Infusion: 11/17/19 14:27 Dose: 0 mls/hr Documented by: Admin: 11/17/19 12:27 Dose: 60 mls/hr Documented by: DEENA Insulin Human Lispro (Humalog) 0 unit SQ ACHS [facility]; Protocol Last Admin: 11/20/19 11:16 Dose: 6 unit Documented by: СЕРГЕЙ Admin: 11/20/19 07:57 Dose: 2 unit Documented by: СЕРГЕЙ Methylprednisolone Sodium Succinate (Solu-Medrol) 62.5 mg IV Q12 [facility] Last Admin: 11/20/19 08:52 Dose: 62.5 mg Documented by: СЕРГЕЙ Admin: 11/19/19 21:57 Dose: 62.5 mg Documented by: Admin: 11/19/19 08:11 Dose: 62.5 mg Documented by: Admin: 11/18/19 20:31 Dose: 62.5 mg Documented by: Admin: 11/18/19 08:53 Dose: 62.5 mg Documented by: Admin: 11/17/19 20:26 Dose: 62.5 mg Documented by: Admin: 11/17/19 09:32 Dose: 62.5 mg Documented by: Admin: 11/16/19 21:04 Dose: 62.5 mg Documented by: DIONICIO Metoprolol Tartrate (Lopressor) 5 mg IV Q6H PRN PRN Reason: Heart Rate- High Last Admin: 11/17/19 00:27 Dose: 5 mg Documented by: DIONICIO Promethazine HCl (Phenergan) 12.5 mg IV Q6HP PRN PRN Reason: Nausea And Vomiting Last Admin: 11/18/19 23:19 Dose: 12.5 mg Documented by: RM Pyridostigmine [place] (Regonol) 5 mg IM Q6 [facility] Last Admin: 11/20/19 11:16 Dose: 5 mg Documented by: СЕРГЕЙ Admin: 11/20/19 06:13 Dose: 5 mg Documented by: Admin: 11/19/19 23:50 Dose: 5 mg Documented by: Admin: 11/19/19 17:40 Dose: 5 mg Documented by: Admin: 11/19/19 14:22 Dose: 5 mg Documented by: Admin: 11/19/19 05:47 Dose: 5 mg Documented by: Admin: 11/18/19 23:19 Dose: 5 mg Documented by: Admin: 11/18/19 17:59 Dose: 5 mg Documented by: Admin: 11/18/19 13:15 Dose: 5 mg Documented by: Admin: 11/18/19 05:45 Dose: 5 mg Documented by: Admin: 11/17/19 23:47 Dose: 5 mg Documented by: Admin: 11/17/19 17:50 Dose: 5 mg Documented by: Admin: 11/17/19 12:25 Dose: 5 mg Documented by: DEENA Sodium Chloride (Saline Flush) 10 ml IV Q8 [facility] Last Admin: 11/20/19 13:46 Dose: Not Given Documented by: СЕРГЕЙ Admin: 11/20/19 06:14 Dose: 10 ml Documented by: Admin: 11/19/19 21:58 Dose: Not Given Documented by: Admin: 11/19/19 14:26 Dose: 10 ml Documented by: Admin: 11/19/19 05:49 Dose: 10 ml Documented by: Admin: 11/18/19 20:36 Dose: 10 ml Documented by: Admin: 11/18/19 12:14 Dose: Not Given Documented by: Admin: 11/18/19 06:58 Dose: Not Given Documented by: Admin: 11/17/19 20:43 Dose: Not Given Documented by: Admin: 11/17/19 12:24 Dose: 10 ml Documented by: Admin: 11/17/19 05:42 Dose: 10 ml Documented by: Admin: 11/16/19 21:12 Dose: Not Given Documented by: CLAUDETOROCIO Shift Summary 11/20/19 05:07 Shift Summary by Gus Borden Pt has rested fairly well tonight. She has denied nausea or ABD pain, yet has had sig aches R/T arthritis & pressure changes - IV Dilaudid 1mg given x2 doses - last @ 0410. Pt is up AMB to & from [facility] - gait stable w/ FWW & SBA. She is voiding QS per commode, and had 50ml out her Ileostomy. LR infusing to implanted port LT chest @ 125ml/hr. VS - B/P has been elevated the last few checks - she states she is anxious to go home, and this happens every time - all else WNL - O2 @ 2L via N/C for pt comfort. She is A&O x4 - calm, pleasant, & co operative. Initialized on 11/20/19 05:07 - END OF NOTE
[2019-11-20] MEDS ORDERED: HEPARIN SODIUM,PORCINE/PF 500 UNIT/5 ML SYRINGE IV ONE (16:14)
== END 2019-11-20 16:39 | disposition home or self-care (01) | DRG 392 ==
LOC: ED 11:34 → MEDSUR 17:45
PROVIDERS: ADMIT Family Medicine Adult Medicine; ATTEND Family Medicine Adult Medicine

== ENCOUNTER 2019-11-25 20:46 | Inpatient (IN) ==
[2019-11-25] MEDS ORDERED: HYDROmorphone 2 MG/ML VIAL IV ONE (21:06)
[2019-11-25] MEDS ORDERED: PROMETHAZINE 25 MG/ML VIAL IV ONE (21:06)
[2019-11-25] MEDS ORDERED: 0.9 % SODIUM CHLORIDE 2,000 ML IV ONE (21:06)
--- NOTE | 2019-11-25 21:13 | Emergency Department Note ---
Nausea/Vomiting/Diarrhea HPI - General Chief complaint: Nausea/Vomiting/Diarrhea Stated complaint: Vomiting Time Seen by Provider: 11/25/19 20:52 Source: patient, family Mode of arrival: wheelchair Limitations: no limitations - History of Present Illness HPI Narrative: 58-year-old female comes in for refractory nausea and vomiting. She has a chronic pseudo-obstruction of the small bowel and has multiple ER visits and hospital stays for this. She is followed by Dr. Parviz Currie, general surgeon. She was recently released from the hospital 5 days ago for an episode of this. Today's episode started at 10:30 AM and she has had multiple rounds of nausea vomiting along with chills and diaphoresis. Denies fever. She does have a Port-A-Cath in place because she is limited vascular access. She does have an ostomy bag and is having liquid stool in that. She does believe that she is dehydrated. Markedly tachycardic in the 150s on admission - Related Data Home Medications Medication Instructions Recorded Confirmed DULoxetine [Cymbalta] 30 mg PO BID 11/30/16 11/26/19 Levothyroxine [Synthroid] 250 mcg PO QAMAC 08/20/17 11/26/19 Calcitriol [Rocaltrol] 0.25 mcg PO TID 02/11/19 11/26/19 B-D Syringe 3 mL 1 unit .ROUTE .MEDSUPPLY 09/30/19 11/26/19 Calcium Carbonate 1,200 mg PO BID 09/30/19 11/26/19 Insulin Glargine, Human [Lantus] 5 unit SQ BID 09/30/19 11/26/19 filter needles 19 x 1 1/2" 0 units .ROUTE .MEDSUPPLY 09/30/19 11/26/19 Pyridostigmine [place] [Regonol] 5 mg SQ Q6 10/31/19 11/26/19 Previous Rx's Medication Instructions Recorded predniSONE [Prednisone] 20 mg PO [facility] #4 tab 05/18/16 metFORMIN HCL [Metformin HCl] 500 mg PO DAILY #30 tab 10/17/18 Promethazine [Phenergan] 25 mg PO Q6HP PRN #60 tab 02/13/19 cyclobenzaprine 10 mg tablet 10 mg PO TID #90 tab 04/17/19 Accu-Chek 1 each FS ACHS strip 10/05/19 Acetaminophen [Tylenol] 650 mg PO Q6HP PRN tab 10/05/19 traMADol [Ultram] 50 mg PO Q6HP PRN #40 tab 10/05/19 metoprolol succinate 25 mg 25 mg PO QDAY #30 tab 10/19/19 tablet,extended release 24 hr Allergies Allergy/AdvReac Type Severity Reaction Status Date / Time Sulfa (Sulfonamide Allergy Severe Anaphylaxis Verified 11/25/19 20:46 Antibiotics) adhesive tape AdvReac Mild Blister Verified 11/25/19 20:46 metoclopramide [From Reglan] AdvReac Mild Anxiety Verified 11/25/19 20:46 steri strips Allergy Severe Blister Uncoded 10/19/19 09:06 Review of Systems All systems ED: reviewed and negative except as stated. Past Medical History - Past Medical History Attestation: Yes: The following information was validated with the patient. [facility] Narrative: Family History (Last Reviewed 10/19/19 @ 12:47 by Parviz Currie MD) Father CAD (coronary artery disease) Mother CAD (coronary artery disease) Grandfather CVA (cerebral vascular accident) Grandmother CVA (cerebral vascular accident) Medical History (Last Updated 10/31/19 @ 00:47 by Robb Goldberg DO) Chronic, continuous use of opioids (Chronic) Myasthenia gravis (Chronic) Obesity, Class II, BMI 35-39.9 (Chronic) LA (obstructive sleep apnea) (Chronic) Hypertension (Chronic) Diabetes mellitus type 2, uncontrolled (Chronic) Sinus tachycardia (Resolved) Chronic intestinal pseudo-obstruction (Chronic) Abdominal pain (Chronic) Recurrent intestinal obstruction (Chronic) Chronic use of steroids (Chronic) Abnormal liver enzymes (Chronic) Hypothyroidism (Chronic) Sarcoidosis (Chronic) Polyglandular autoimmune syndrome (Chronic) Recurrent abdominal pain (Chronic) Abdominal pain (Resolved) Abdominal wound dehiscence (Resolved) Achalasia and cardiospasm (Resolved) Acute respiratory insufficiency (Resolved) Adverse reaction to drug (Resolved) Anaphylaxis (Resolved) Bowel obstruction (Resolved) 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) Constipation due to neurogenic bowel (Resolved) Constipation due to pain medication therapy (Resolved) Dehydration (Resolved) Dehydration (Resolved) Encounter for care related to Port-a-Cath (Resolved) Fecal impaction (Resolved) Foot sprain (Resolved) Hypercalcemia (Resolved) Hypocalcemia (Resolved) Hyponatremia (Resolved) Ileus (Resolved) Infiltrate of lung present on imaging of chest (Resolved) Intractable vomiting (Resolved) Lactic acid acidosis (Resolved) Nausea (Resolved) Nausea & vomiting (Resolved) Nausea & vomiting (Resolved) Nausea and vomiting (Resolved) Obstruction of descending colon (Resolved) Pancreatitis (Resolved) Parastomal hernia with obstruction, without gangrene (Resolved) Partial intestinal obstruction, unspecified as to cause (Resolved) Pneumonia (Resolved) Primary chronic pseudo-obstruction of large intestine (Resolved) Pseudoobstruction of colon (Resolved) Pyelonephritis (Resolved) Sepsis (Resolved) Sepsis associated hypotension (Resolved) Sepsis with acute hypoxic respiratory failure (Resolved) Severe sepsis (Resolved) Sigmoid volvulus (Resolved) Small bowel obstruction (Resolved) Small bowel obstruction (Resolved) Small bowel obstruction (Resolved) Small bowel obstruction (Resolved) Small bowel obstruction (Resolved) Small bowel obstruction due to adhesions (Resolved) Small bowel obstruction due to postoperative adhesions (Resolved) Small bowel obstruction, partial (Resolved) Supraventricular tachycardia (Resolved) UTI (urinary tract infection) (Resolved) UTI (urinary tract infection) (Resolved) Volvulus of sigmoid colon (Resolved) Past Surgical History (Last Reviewed 10/19/19 @ 12:47 by Parviz Currie MD) History of exploratory laparotomy (Acute) History of exploratory laparotomy (Acute) History of exploratory laparotomy (Acute) History of exploratory laparotomy (Acute) S/P ileostomy (Resolved) Medical history: Reports: COPD, hypertension, hypothyroidism, other (Myasthenia gravis). 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 Denies: marijuana Physical Exam Obese female some distress with tachycardia and diaphoresis. Normocephalic atraumatic. Conjunctive are clear sclera white nonicteric. No nasal discharge or congestion. Oropharynx is pink moist. Neck is supple without lymp hadenopathy or thyromegaly. Heart is tachycardic. I cannot hear a murmur. Lungs are basically clear to auscultation bilaterally. She does have an ostomy bag in place with liquid brown stool off to the right of her belly this does not appear to be leaking or inflamed. Abdomen is somewhat diffusely tender. No pedal edema. Alert oriented able to answer questions appropriately Limitations: no limitations Course Vital Signs Temperature 96.3 F L 11/25/19 20:46 Pulse Rate 155 H 11/25/19 20:46 Respiratory Rate 20 11/25/19 20:46 Blood Pressure 94/72 11/25/19 20:46 Pulse Oximetry (%) 98 11/25/19 20:46 Temperature 96.3 F L 11/25/19 20:46 Pulse Rate 125 H 11/26/19 00:29 Respiratory Rate 18 11/26/19 00:29 Blood Pressure 137/100 11/26/19 00:29 Pulse Oximetry (%) 97 11/26/19 00:29 Nausea/Vomiting/Diarrhea - Lab Data Lab results reviewed: Yes I reviewed the patient's lab results. Result diagrams: 11/25/19 21:20 11/25/19 21:20 - Radiology Data Radiology results reviewed: Yes I reviewed the patient's radiology results. Per [facility] report : CT of the abdomen pelvis without IV contrast shows a small bowel obstruction with transition point near the anastomotic sutures lower midline abdomen. Bowel is dilated up to the stomach and esophagus is filled with fluid from the obstruction. Noted incidentally 7 mm left lower lobe pulmonary nodule recommend 6 to 12-month follow-up chest CT - EKG Data EKG attestation: Yes I reviewed and interpreted this EKG., Yes There are no EKG findings of acute coronary syndrome EKG results narrative: Sinus tachycardia with a rate of 148 repolarization abnormalities noted with ST depression in multiple leads. likely LVH Disposition Pt seen by MAINTENANCE AND UTILITIES SUPERVISOR/PA only: No Clinical Impression: Recurrent intestinal obstruction, Sinus tachycardia Summary: Ordered IV fluids, pain medicine, nausea medicine IV. We will get laboratory and CT scan without contrast to sort out what is going on. Suspect exacerbation of her pseudoobstruction. Ordered EKG to evaluate tachycardia EKG shows sinus tachycardia. Ordered Cardizem Elevated white count at 19 seen on CBC. Internet issues forced review of paper labs, these are not flowing over to the chart. CT scan shows significant small bowel obstruction with fluid levels into the esophagus. Placed NG tube-this was advanced about 5 cm after getting an x-ray for placement Discussed results with Dr. Parviz Currie, general surgeon. He is very familiar with her case. He recommended we go ahead and put her in the hospital and treat her conservatively. I will write holding orders and he will see her in the morning I discussed the results with the patient as well and reevaluated her. Her heart rate had come down into the 130s and she was feeling much better with the NG tube in place Disposition: Xfer As Inpt ([facility]) Condition: Fair Referrals: Douglas Haque MD [Primary Care Provider] -
[2019-11-25] MEDS ORDERED: DILTIAZEM 25 MG/5 ML VIAL IV ONE (22:08)
[2019-11-25] MEDS ORDERED: HYDROmorphone 2 MG/ML VIAL IV PRN (23:00)
[2019-11-26] MEDS ORDERED: NALOXONE HCL 0.4 MG/ML VIAL IV PRN (00:42)
[2019-11-26] MEDS ORDERED: PROMETHAZINE 25 MG/ML VIAL IM PRN (00:42)
[2019-11-26] MEDS: 0.9 % SODIUM CHLORIDE 1,000 ML IV SCH ×4 (01:03→22:13)
[2019-11-26] MEDS ORDERED: HYDROmorphone 2 MG/ML VIAL ONE ×2 (02:14→05:24)
[2019-11-26] MEDS: HYDROmorphone 2 MG/ML VIAL IV PRN ×7 (02:17→23:06)
[2019-11-26] MEDS: ONDANSETRON 4 MG/2 ML VIAL IV PRN ×3 (05:20→22:29)
--- NOTE | 2019-11-26 06:22 | XRay Report ---
CLINICAL INFORMATION: Bowel obstruction. Nasogastric tube placement TECHNIQUE: AP chest x-ray COMPARISON: Multiple previous plain film examinations and CT scans FINDINGS: Previous median sternotomy. No change in left small caliber central venous catheter infusion port There is an esophagogastric tube with its tip in the distended stomach. Sidehole of the catheter is at the gastroesophageal junction Examination was initially interpreted by [facility] IMPRESSION: Esophagogastric tube in the stomach. Sidehole of the catheter is at the gastroesophageal junction Interpreted and Authenticated by: All Cormier 11/26/19
--- NOTE | 2019-11-26 06:40 | Cat Scan Report ---
CLINICAL INFORMATION: Recurrent bowel obstruction COMPARISON: Innumerable previous CT scans and plain film examinations. Most recent previous CT scan is dated 11/16/2019 TECHNIQUE: Axial images were obtained through the abdomen and pelvis. Sagittally and coronally reformatted images. FINDINGS: Examination was initially interpreted by [facility] Lung bases:9 mm left lower lobe pulmonary parenchymal nodule, unchanged. Right lower lobe. Or atelectasis. There is no pleural fluid. No pericardial fluid. Liver:Negative. No focal hepatic mass. Liver contour is smooth. Gallbladder, billary:Previous cholecystectomy. No dilated bile ducts Spleen:Negative. No splenomegaly Pancreas:Negative. No pancreatic mass. No peripancreatic abnormality Adrenal glands:Negative Kidneys, ureters, bladder:No renal mass. There is no hydronephrosis or hydroureter. No bladder calculi Gastrointestinal:Previous colectomy. There is a right lower quadrant ileostomy. There is count clinical small bowel obstruction. Transition point is at the anastomotic suture line in the pelvis. There is distended fluid filled jejunum and proximal ileum. The stomach is distended and fluid-filled. Vascular:Abdominal aorta is unremarkable. No abdominal aortic aneurysm Lymphatic:No retroperitoneal or mesenteric adenopathy Mesentery, peritoneum:No free intraperitoneal fluid. No intra-abdominal abscess. Reproductive:No adnexal mass. Uterus is not visualized Musculoskeletal:No lumbar compression fractures. Grade 2 L4-5 spondylolisthesis and severe degenerative disc disease. No pelvic or hip fracture. IMPRESSION: Recurrent mechanical small bowel obstruction with transition point at the anastomotic suture line in the pelvis The exam was performed using radiation dose optimization techniques including, but not limited to, automated exposure control, adjustment of the mA and/or kV according to patient size and use of iterative reconstruction technique. Interpreted and Authenticated by: All Cormier 11/26/19
[2019-11-26] MEDS: PROMETHAZINE 25 MG/ML VIAL IV PRN ×3 (07:43→21:07)
[2019-11-26 09:00] LABS: ALT/SGPT 40 U/l (0-40); AST/SGOT 26 U/l (0-37); Albumin 3.9 gm/dL (3.2-5.2); Albumin/Globulin Ratio 1.2 (1.0-2.3); Alkaline Phosphatase 106 U/L (39-117); Bilirubin,Total 0.3 mg/dL (0.0-1.0); Blood Urea Nitrogen 24 mg/dl (6-20); C-Reactive Protein 0.7 mg/dl (0.0-0.8); Calcium 7.9 mg/dl (8.6-10.4); Carbon Dioxide 23 mmol/L (22-30); Chloride 92 mmol/L (96-108); Globulin 3.2 gm/dL (2.2-3.7); Glomerular Filtration Rate 5613; Glucose 274 mg/dL (70-105)
[2019-11-26 09:03] LABS: Basophils # (Auto) 0.16 K/mcL (0.00-0.30); Basophils % (Auto) 0.8 % (0.0-2.0); Eosinophils # (Auto) 0.29 K/mcL (0.00-0.70); Eosinophils % (Auto) 1.5 % (0.0-7.0); Granulocytes % (Auto) 60.3 % (38.0-78.0); Hematocrit 48.6 % (34.1-44.9); Hemoglobin 15.3 g/dL (11.2-15.7); Lymphocytes # (Auto) 4.61 K/mcL (1.50-4.80); Lymphocytes % (Auto) 23.1 % (15.5-49.0); Mean Corpuscular HGB Conc 31.5 g/dL (31.0-36.0); Monocytes # (Auto) 1.78 K/mcL (0.10-0.90); Monocytes % (Auto) 8.9 % (1.0-12.0); Platelet Count 405 K/mcL (140-440); RBC 5.46 M/mcL (3.59-5.38); Red Cell Distribution Width 16.5 % (11.5-14.5); WBC 19.9 K/mcL (4.50-11.00)
[2019-11-26] MEDS ORDERED: DIATRIZOATE MEGLU/DIATRIZO SOD 30 ML BOTTLE PO ONE (09:19)
[2019-11-26] MEDS: BENZOCAINE 1 SPRAY BOTTLE TOPICAL PRN ×4 (12:43→23:00)
[2019-11-26] MEDS: metroNIDAZOLE 500 MG/100 ML BAG IV SCH ×2 (14:21→17:35)
[2019-11-26] MEDS: LEVOFLOXACIN 750 MG/150 ML BAG IV SCH (15:23)
[2019-11-26] MEDS ORDERED: METOPROLOL TARTRATE 5 MG/5 ML VIAL IV PRN (17:51)
--- NOTE | 2019-11-26 17:51 | General Surg History&Physical ---
History of Present Illness Patient information: Note initiated : 11/26/19 at 5:50 pm Service Date, if different from initiated Date: [] Patient: Dayanna Stephens a 58 y/o F admitted on 11/26/19 for Vomiting. Chief Complaint: [] HPI: Ms. Stephens is a 58 year old F history of chronic intestinal pseudoobstruction. She was hospitalized in October, early November with recurrent episodes of obstruction due to intestinal atony. Her last admission was 16 November through 20 November. She improved over 3 days. Her diet was advanced. She was clinically stable at the time of discharge, an her x-rays did not show much gas in her small bowel. She states that over the last 2 days. She has not had any output from her stoma and she's had increasing nausea with vomiting. X-rays are compatible with recurrent obstruction pattern and she is admitted. Clinically, it appears that her small bowel is dilated all the way through to her stoma and she had over 300 cc of output through her stoma In the emergency room prior to admission. Review of Systems All systems PM: reviewed and no additional remarkable complaints except as stated (as noted below) - Constitutional fatigue, malaise, weakness - Cardiovascular palpatations, rapid heart rate - Gastrointestinal abdominal pain, bloating, change in bowel habits, cramping, nausea, vomiting - Neurological weakness - Psychiatric depression - Hematologic/Lymphatic no easy bleeding, no easy bruising, no lymphadenopathy - Allergic/Immunologic no tongue swelling, no throat swelling, no uticaria, no wheezing, no lip swelling Past History Past medical history: Myasthenia gravis. Diabetes mellitus. Chronic obstructive sleep apnea Hypertension. Recurrent sinus tachycardia Multiple bowel obstructions Past surgical history: Thymectomy for myasthenia gravis. Multiple colon surgeries with subtotal colectomy. Multiple laparotomies for adhesiolysis. Laparotomy for closure of iatrogenic intestinal injury. Incisional hernia repair. Parastomal hernia repair Past social history: Former tobacco use , former marijuana use. Denies alcohol use Medications and Allergies Home Medications Medication Instructions Recorded Confirmed Type predniSONE [Prednisone] 20 mg PO [facility] #4 tab 05/18/16 11/26/19 Rx DULoxetine [Cymbalta] 30 mg PO BID 11/30/16 11/26/19 History Levothyroxine [Synthroid] 250 mcg PO QAMAC 08/20/17 11/26/19 History metFORMIN HCL [Metformin HCl] 500 mg PO DAILY #30 tab 10/17/18 11/26/19 Rx Calcitriol [Rocaltrol] 0.25 mcg PO TID 02/11/19 11/26/19 History Promethazine [Phenergan] 25 mg PO Q6HP PRN #60 tab 02/13/19 11/26/19 Rx cyclobenzaprine 10 mg tablet 10 mg PO TID #90 tab 04/17/19 11/26/19 Rx B-D Syringe 3 mL 1 unit .ROUTE .MEDSUPPLY 09/30/19 11/26/19 History Calcium Carbonate 1,200 mg PO BID 09/30/19 11/26/19 History Insulin Glargine, Human [Lantus] 5 unit SQ BID 09/30/19 11/26/19 History filter needles 19 x 1 1/2" 0 units .ROUTE .MEDSUPPLY 09/30/19 11/26/19 History Accu-Chek 1 each FS ACHS strip 10/05/19 11/26/19 Rx Acetaminophen [Tylenol] 650 mg PO Q6HP PRN tab 10/05/19 11/26/19 Rx traMADol [Ultram] 50 mg PO Q6HP PRN #40 tab 10/05/19 11/26/19 Rx metoprolol succinate 25 mg 25 mg PO QDAY #30 tab 10/19/19 11/26/19 Rx tablet,extended release 24 hr Pyridostigmine Andrews [Regonol] 5 mg SQ Q6 10/31/19 11/26/19 History Allergies Allergy/AdvReac Type Severity Reaction Status Date / Time Sulfa (Sulfonamide Allergy Severe Anaphylaxis Verified 11/25/19 20:46 Antibiotics) adhesive tape AdvReac Mild Blister Verified 11/25/19 20:46 metoclopramide [From Reglan] AdvReac Mild Anxiety Verified 11/25/19 20:46 steri strips Allergy Severe Blister Uncoded 10/19/19 09:06 Exam Temp Pulse Resp BP Pulse Ox 98.0 F 130 H 18 95/85 96 11/26/19 12:00 11/26/19 12:00 11/26/19 12:00 11/26/19 12:00 11/26/19 12:00 - General physical appearance well developed, well nourished, moderate distress, moderate pain, chronically ill, obese - Eyes PERRL, normal ocular movement - ENT normal pinna, normal nares, normal mucosa, no hearing loss, no congestion - Head Head exam IM: Present: atraumatic, normocephalic - Neck no masses, no bruits, trachea midline, no lymphadenopathy, no venous distension - Cardiovascular Cardiovascular exam IM: Present: JVD, RRR, +S1, +S2, tachycardia - Respiratory normal expansion, normal respiratory effort, clear to percussion, clear to auscultation - Abdomen Abdomen: Present: soft, tender, bowel sounds, distended (distended and diffusely tender; good active bowel sounds) Hernia: Present: none - Genitourinary Present: normal external genitalia - Integumentary Present: no rash, no growths, no abnormal pigmentation - Neurologic Present: normal coordination, normal sensation - Musculoskeletal Present: normal gait, normal posture - Psychiatric Present: oriented to time, oriented to person, oriented to place, speech is no rmal, memory intact Assessment and Plan (1) Chronic intestinal pseudo-obstruction nasogastric decompression. IV fluid supplement. Small bowel follow-through Laparotomy if she does not compress Status: Chronic (2) Sinus tachycardia IV metoprolol as needed. IV diltiazem if needed. Restart oral medications when able to take by mouth Status: Acute (3) Dehydration IV hydration for correction Status: Acute (4) Chronic use of steroids Solu-Medrol 62 mg IV every 12 hours until able to start baselines steroids Status: Chronic Comment: for myasthenia gravis; 10+ years (5) Diabetes mellitus type 2, uncontrolled Accu-Cheks every 6 hours with sliding scale coverage with Humalog Status: Chronic
[2019-11-26] MEDS: PYRIDOSTIGMINE BROMIDE 10 MG/2 ML ML IM SCH (18:05)
--- NOTE | 2019-11-26 18:41 | XRay Report ---
CLINICAL INFORMATION: Recurrent small bowel obstruction TECHNIQUE: Dilute Gastrografin was given through the nasogastric tube. Follow-up images 4 8 hours were obtained. COMPARISON: Multiple previous CT scans and small bowel studies FINDINGS: There is dilated fluid and gas-filled small bowel. Gastrografin is not well-visualized by 4 hours and 35 minutes post ingestion. Some of this contrast material appears to be excreted by the kidneys. There is opacification of the urinary bladder. By 8 hours post ingestion there continues to be dilated small bowel without significant small bowel contrast material. Continued radiographic follow-up is recommended. Examination in the morning should be performed to evaluate for persistent small bowel dilatation or improvement. IMPRESSION: 1. Contrast material is difficult to identify. There continues to be gas filled small bowel dilatation 2. There is contrast material within the urinary bladder Interpreted and Authenticated by: All Cormier 11/26/19
[2019-11-27] MEDS: metroNIDAZOLE 500 MG/100 ML BAG IV SCH ×5 (00:20→23:57)
[2019-11-27] MEDS: PYRIDOSTIGMINE BROMIDE 10 MG/2 ML ML IM SCH ×6 (00:21→23:58)
[2019-11-27] MEDS: HYDROmorphone 2 MG/ML VIAL IV PRN ×8 (02:14→23:15)
[2019-11-27] MEDS: BENZOCAINE 1 SPRAY BOTTLE TOPICAL PRN ×3 (02:16→19:02)
[2019-11-27] MEDS: ONDANSETRON 4 MG/2 ML VIAL IV PRN ×5 (02:31→23:15)
[2019-11-27] MEDS: PROMETHAZINE 25 MG/ML VIAL IV PRN ×4 (03:02→20:52)
[2019-11-27] MEDS: 0.9 % SODIUM CHLORIDE 1,000 ML IV SCH ×4 (05:47→20:57)
--- NOTE | 2019-11-27 07:54 | XRay Report ---
CLINICAL INFORMATION: Recurrent bowel obstruction. Previous colectomy. TECHNIQUE: Supine and upright abdomen COMPARISON: Previous plain film examinations dated 11/26/2019, 11/25/2019, 11/20/2019 FINDINGS: There is some residual contrast material in the stomach. There is persistent gaseous distention of small bowel with associated air-fluid levels. Appearance remains consistent with mechanical small bowel obstruction. Esophagogastric tube tip remains in the proximal stomach. There is no pneumoperitoneum. There is no pneumatosis. No biliary or portal venous gas. IMPRESSION: 1. Continued abnormal bowel gas pattern 2. Distended gas-filled small bowel segments consistent with obstruction Interpreted and Authenticated by: All Cormier 11/27/19
[2019-11-27 09:16] LABS: Basophils # (Auto) 0.05 K/mcL (0.00-0.30); Basophils % (Auto) 0.4 % (0.0-2.0); Eosinophils # (Auto) 0.22 K/mcL (0.00-0.70); Eosinophils % (Auto) 1.6 % (0.0-7.0); Granulocytes % (Auto) 74.7 % (38.0-78.0); Hematocrit 42.8 % (34.1-44.9); Hemoglobin 13.2 g/dL (11.2-15.7); Lymphocytes # (Auto) 1.99 K/mcL (1.50-4.80); Lymphocytes % (Auto) 14.5 % (15.5-49.0); Mean Cell Volume 90.5 fL (80.0-100.0); Mean Corpuscular HGB Conc 30.8 g/dL (31.0-36.0); Mean Platelet Volume 9.6 fL (7.4-10.4); Monocytes % (Auto) 8.8 % (1.0-12.0); Platelet Count 316 K/mcL (140-440); RBC 4.73 M/mcL (3.59-5.38); Red Cell Distribution Width 16.7 % (11.5-14.5); WBC 13.7 K/mcL (4.50-11.00)
[2019-11-27] MEDS: LEVOFLOXACIN 750 MG/150 ML BAG IV SCH (09:45)
[2019-11-27 10:22] LABS: ALT/SGPT 25 U/l (0-40); AST/SGOT 14 U/l (0-37); Albumin 3.3 gm/dL (3.2-5.2); Albumin/Globulin Ratio 1.3 (1.0-2.3); Alkaline Phosphatase 99 U/L (39-117); Bilirubin,Direct < 0.2 mg/dL (0.0-0.3); Bilirubin,Total 0.2 mg/dL (0.0-1.0); Carbon Dioxide 25 mmol/L (22-30); Chloride 98 mmol/L (96-108); Globulin 2.6 gm/dL (2.2-3.7); Glomerular Filtration Rate 101; Glucose 173 mg/dL (70-105); Lactate Dehydrogenase 340 U/L (94-250); Triglycerides 285 mg/dl (<150); Uric Acid 4.7 mg/dL (2.5-8.0)
[2019-11-27 10:37] LABS: Blood Urea Nitrogen 25 mg/dl (6-20); Calcium 5.7 mg/dl (8.6-10.4)
[2019-11-27] MEDS ORDERED: POTASSIUM CHLORIDE 40 MEQ in DEXTROSE 5% IN WATER 500 ML IV ONE (13:02)
[2019-11-27] MEDS ORDERED: MAGNESIUM SULFATE 4 GM/100 ML BAG IV ONE (13:45)
[2019-11-27] MEDS: CALCIUM GLUCONATE 9.3 MEQ in DEXTROSE 5% IN WATER 50 ML IV SCH (15:48)
--- NOTE | 2019-11-27 16:42 | General Surgery Progress Note ---
Subjective Patient reports: feels better, still having pain, pain is less, bowel movement, diarrhea, nausea, afebrile Narrative: Note initiated : 11/27/19 at 4:42 pm Service Date, if different from initiated Date: [] Patient: Dayanna Stephens 58 y/o F admitted on 11/26/19 for Vomiting. Chief Complaint: [Patient is slightly improved. She has put out over 1000 cc of stool measured from her stoma. Her nasogastric tube was not functioning adequately, but it has been adjusted and is now putting out small amount of gas and gastric contents. She did still has significant abdominal distention. White blood count 13.7, hemoglobin 13.2, lactic acid 1.2, potassium 3.3, BUN 25, creatinine 0.6, calcium 5.7.] Objective Temp Pulse Resp BP Pulse Ox 97.0 F 118 H 18 135/91 93 11/27/19 08:00 11/27/19 08:00 11/27/19 08:00 11/27/19 08:00 11/27/19 08:00 - Additional Data Intake & Output - Last 24 hours: Intake & Output 11/25/19 11/26/19 11/27/19 11/28/19 05:59 05:59 05:59 05:59 Intake Total 1060 4085 1165 Output Total 150 1355 350 Balance 910 2730 815 Weight 211 lb 8 oz 214 lb 214 lb - General physical appearance moderate distress, moderate pain, chronically ill - Eyes PERRL, normal ocular movement - ENT normal pinna, normal nares, normal mucosa, no hearing loss, no congestion - Neck no masses, no bruits, trachea midline, no lymphadenopathy, no venous distension - Respiratory normal expansion, normal respiratory effort, clear to auscultation - Cardiovascular Cardiovascular exam: Present: normal rate and rhythm, RRR, +S1, +S2. Absent: JVD, tachycardia - Abdomen tender (mild midabdominal tenderness), bowel sounds (present), surgical scars (none), masses (none), distended (upper abdomen is distended but with active bowel sounds) - Integumentary no rash, no growths, no abnormal pigmentation - Neurologic normal coordination, normal sensation - Psychiatric oriented to time, oriented to person, oriented to place, speech is normal, memory intact - Labs 11/27/19 07:31 11/27/19 07:31 Diabetes panel 11/27/19 Range/Units 07:31 Sodium 139 (133-145) mmol/L Potassium 3.3 (3.3-5.1) mmol/L Chloride 98 (96-108) mmol/L Carbon Dioxide 25 (22-30) mmol/L BUN 25 H (6-20) mg/dl Creatinine 0.6 (0.6-1.1) mg/dl Glucose 173 H (70-105) mg/dL Calcium 5.7 L* (8.6-10.4) mg/dl AST 14 (0-37) U/l ALT 25 (0-40) U/l Alkaline Phosphatase 99 (39-117) U/L Total Protein 5.9 (5.9-8.4) gm/dL Albumin 3.3 (3.2-5.2) gm/dL Triglycerides 285 H (<150) mg/dl Calcium panel 11/27/19 Range/Units 07:31 Calcium 5.7 L* (8.6-10.4) mg/dl Phosphorus 4.0 (2.7-4.5) mg/dL Albumin 3.3 (3.2-5.2) gm/dL Pituitary panel 11/27/19 Range/Units 07:31 Sodium 139 (133-145) mmol/L Potassium 3.3 (3.3-5.1) mmol/L Chloride 98 (96-108) mmol/L Carbon Dioxide 25 (22-30) mmol/L BUN 25 H (6-20) mg/dl Creatinine 0.6 (0.6-1.1) mg/dl Glucose 173 H (70-105) mg/dL Calcium 5.7 L* (8.6-10.4) mg/dl Adrenal panel 11/27/19 Range/Units 07:31 Sodium 139 (133-145) mmol/L Potassium 3.3 (3.3-5.1) mmol/L Chloride 98 (96-108) mmol/L Carbon Dioxide 25 (22-30) mmol/L BUN 25 H (6-20) mg/dl Creatinine 0.6 (0.6-1.1) mg/dl Glucose 173 H (70-105) mg/dL Calcium 5.7 L* (8.6-10.4) mg/dl Total Bilirubin 0.2 (0.0-1.0) mg/dL AST 14 (0-37) U/l ALT 25 (0-40) U/l Alkaline Phosphatase 99 (39-117) U/L Total Protein 5.9 (5.9-8.4) gm/dL Albumin 3.3 (3.2-5.2) gm/dL Assessment and Plan (1) Sinus tachycardia Status: Acute Assessment and plan: Slowly improving. Will use IV metoprolol as needed Current Visit: Yes (2) Dehydration Status: Acute Assessment and plan: No significant change but urine output is adequate Current Visit: No (3) Chronic intestinal pseudo-obstruction Status: Chronic Assessment and plan: Slowly improving. Will continue present therapy with gastric decompression Current Visit: No (4) Chronic use of steroids Problem details: for myasthenia gravis; 10+ years Status: Chronic Assessment and plan: Solu-Medrol 62 mg IV every 12 hours Current Visit: No (5) Diabetes mellitus type 2, uncontrolled Status: Chronic Assessment and plan: Accu-Cheks every 6 hours with Humalog coverage Current Visit: No - Time Spent With Patient Total time spent is greater than 50% in coordination of care (as documented) at patient's floor/unit and/or counseling patient:
[2019-11-27] MEDS: INSULIN LISPRO 1 UNIT/0.01 ML UNIT SQ SCH ×2 (18:22→23:57)
[2019-11-27 19:11] LABS: Calcium 5.9 mg/dl (8.6-10.4)
[2019-11-27] MEDS ORDERED: 0.9 % SODIUM CHLORIDE 1,000 ML IV ONE (19:22)
[2019-11-27] MEDS: methylPREDNISolone SOD SUCC 125 MG/2 ML VIAL IV SCH (20:52)
[2019-11-28] MEDS: HYDROmorphone 2 MG/ML VIAL IV PRN ×10 (02:24→23:45)
[2019-11-28] MEDS: 0.9 % SODIUM CHLORIDE 1,000 ML IV SCH ×3 (04:12→16:28)
[2019-11-28] MEDS: ONDANSETRON 4 MG/2 ML VIAL IV PRN ×2 (04:54→11:37)
[2019-11-28] MEDS: PYRIDOSTIGMINE BROMIDE 10 MG/2 ML ML IM SCH ×4 (05:59→23:44)
[2019-11-28] MEDS: metroNIDAZOLE 500 MG/100 ML BAG IV SCH ×3 (05:59→20:07)
[2019-11-28] MEDS: INSULIN LISPRO 1 UNIT/0.01 ML UNIT SQ SCH ×4 (06:11→23:55)
[2019-11-28 07:29] LABS: Basophils # (Auto) 0.02 K/mcL (0.00-0.30); Basophils % (Auto) 0.2 % (0.0-2.0); Eosinophils # (Auto) 0 K/mcL (0.00-0.70); Eosinophils % (Auto) 0 % (0.0-7.0); Granulocytes % (Auto) 91.1 % (38.0-78.0); Hematocrit 34.9 % (34.1-44.9); Hemoglobin 10.9 g/dL (11.2-15.7); Lymphocytes % (Auto) 7.4 % (15.5-49.0); Mean Cell Volume 89.9 fL (80.0-100.0); Mean Corpuscular HGB Conc 31.2 g/dL (31.0-36.0); Mean Platelet Volume 9.1 fL (7.4-10.4); Monocytes # (Auto) 0.12 K/mcL (0.10-0.90); Monocytes % (Auto) 1.3 % (1.0-12.0); Platelet Count 248 K/mcL (140-440); RBC 3.88 M/mcL (3.59-5.38); Red Cell Distribution Width 16.6 % (11.5-14.5); WBC 9.5 K/mcL (4.50-11.00)
[2019-11-28] MEDS: PROMETHAZINE 25 MG/ML VIAL IV PRN ×2 (07:34→14:32)
[2019-11-28] MEDS: methylPREDNISolone SOD SUCC 125 MG/2 ML VIAL IV SCH ×2 (07:34→20:33)
[2019-11-28 07:49] LABS: ALT/SGPT 18 U/l (0-40); AST/SGOT 12 U/l (0-37); Albumin 2.7 gm/dL (3.2-5.2); Albumin/Globulin Ratio 1.2 (1.0-2.3); Alkaline Phosphatase 76 U/L (39-117); Bilirubin,Direct < 0.2 mg/dL (0.0-0.3); Bilirubin,Total < 0.2 mg/dL (0.0-1.0); Carbon Dioxide 21 mmol/L (22-30); Chloride 103 mmol/L (96-108); Globulin 2.3 gm/dL (2.2-3.7); Glomerular Filtration Rate 107; Glucose 182 mg/dL (70-105); Lactate Dehydrogenase 274 U/L (94-250); Phosphorous 3.3 mg/dL (2.7-4.5); Triglycerides 106 mg/dl (<150); Uric Acid 3.4 mg/dL (2.5-8.0)
[2019-11-28 07:58] LABS: Blood Urea Nitrogen 11 mg/dl (6-20); Calcium 4.9 mg/dl (8.6-10.4)
[2019-11-28] MEDS ORDERED: CALCIUM GLUCONATE 4.65 MEQ/10 ML VIAL IV ONE (08:51)
[2019-11-28] MEDS ORDERED: CALCIUM GLUCONATE 4.65 MEQ/10 ML VIAL IV SCH (09:00)
[2019-11-28] MEDS: CALCIUM GLUCONATE 9.3 MEQ in DEXTROSE 5% IN WATER 50 ML IV SCH (09:00)
[2019-11-28] MEDS: LEVOFLOXACIN 750 MG/150 ML BAG IV SCH (09:00)
[2019-11-28] MEDS ORDERED: CALCIUM GLUCONATE 9.3 MEQ in DEXTROSE 5% IN WATER 50 ML IV SCH (09:00)
[2019-11-28] MEDS ORDERED: MAGNESIUM SULFATE 2 GM/50 ML BAG IV SCH (09:00)
[2019-11-28] MEDS: MAGNESIUM SULFATE 4 GM/100 ML BAG IV SCH ×2 (09:50→14:33)
[2019-11-28] MEDS ORDERED: CALCIUM GLUCONATE 9.3 MEQ in DEXTROSE 5% IN WATER 50 ML IV ONE ×2 (10:00→12:00)
--- NOTE | 2019-11-28 10:58 | XRay Report ---
CLINICAL INFORMATION: Follow-up small bowel obstruction TECHNIQUE: Supine and upright abdomen COMPARISON: Multiple previous examinations. Most recent studies include plain film examination dated 11/27/2019 and small bowel study dated 11/26/2019 FINDINGS: Esophagogastric tube tip remains in the proximal stomach. Stomach is gas-filled and mildly prominent. There continues to be some contrast material within the stomach. Gas filled distended small bowel remains present. There are air fluid levels. Appearance remains consistent with bowel obstruction or severe ileus. No definite interval change. There is no contrast material identified within small bowel. There is no pneumoperitoneum. No biliary or portal venous gas. No pneumatosis. IMPRESSION: 1. Persistent gaseous distention of small bowel 2. No definite interval change since 11/27/2019 Interpreted and Authenticated by: All Cormier 11/28/19
--- NOTE | 2019-11-28 12:43 | General Surgery Progress Note ---
Subjective Patient reports: feels better, pain is less, flatus, bowel movement, diarrhea, afebrile Narrative: Note initiated : 11/28/19 at 12:40 pm Service Date, if different from initiated Date: [] Patient: Dayanna Stephens 58 y/o F admitted on 11/26/19 for Vomiting. Chief Complaint: [Patient is stable. She had 500 cc output last evening and has had at least that much today. She still has mild upper abdominal distention. White blood count 9.5, hemoglobin 10.9, hematocrit 34.9, BUN 11, creatinine 0.5, but calcium 4.9. Nasogastric tube is not functioning adequately, so it was exchanged. Position shows it to be in the fundus of the stomach.] Objective Temp Pulse Resp BP Pulse Ox 98.4 F 100 H 16 132/85 96 11/28/19 08:00 11/28/19 08:00 11/28/19 08:00 11/28/19 08:00 11/28/19 08:00 - Additional Data Intake & Output - Last 24 hours: Intake & Output 11/26/19 11/27/19 11/28/19 11/29/19 05:59 05:59 05:59 05:59 Intake Total 1060 4085 4955 390 Output Total 150 1355 1975 1100 Balance 910 2730 2980 -710 Weight 211 lb 8 oz 214 lb 217 lb 5 oz - General physical appearance well developed, well nourished, no distress - Eyes PERRL, normal ocular movement - ENT normal pinna, normal nares, normal mucosa, no hearing loss, no congestion - Neck no masses, no bruits, trachea midline, no lymphadenopathy, no venous distension - Respiratory normal expansion, normal respiratory effort, clear to auscultation - Cardiovascular Cardiovascular exam: Present: normal rate and rhythm, RRR, +S1, +S2. Absent: JVD, tachycardia - Abdomen non tender, bowel sounds (present), surgical scars (none), masses (none), disten ded (mild upper abdominal distention but with good active bowel sounds) - Integumentary no rash, no growths, no abnormal pigmentation - Neurologic normal coordination, normal sensation - Musculoskeletal normal gait, normal posture - Psychiatric oriented to time, oriented to person, oriented to place, speech is normal, memory intact - Labs 11/28/19 06:00 11/28/19 06:00 Diabetes panel 11/27/19 11/28/19 Range/Units 18:14 06:00 Sodium 138 (133-145) mmol/L Potassium 3.8 (3.3-5.1) mmol/L Chloride 103 (96-108) mmol/L Carbon Dioxide 21 L (22-30) mmol/L BUN 11 (6-20) mg/dl Creatinine 0.5 L (0.6-1.1) mg/dl Glucose 182 H (70-105) mg/dL Calcium 5.9 L* 4.9 L* (8.6-10.4) mg/dl AST 12 (0-37) U/l ALT 18 (0-40) U/l Alkaline Phosphatase 76 (39-117) U/L Total Protein 5.0 L (5.9-8.4) gm/dL Albumin 2.7 L (3.2-5.2) gm/dL Triglycerides 106 (<150) mg/dl Calcium panel 11/27/19 11/28/19 Range/Units 18:14 06:00 Calcium 5.9 L* 4.9 L* (8.6-10.4) mg/dl Phosphorus 3.3 (2.7-4.5) mg/dL Albumin 2.7 L (3.2-5.2) gm/dL Pituitary panel 11/27/19 11/28/19 Range/Units 18:14 06:00 Sodium 138 (133-145) mmol/L Potassium 3.8 (3.3-5.1) mmol/L Chloride 103 (96-108) mmol/L Carbon Dioxide 21 L (22-30) mmol/L BUN 11 (6-20) mg/dl Creatinine 0.5 L (0.6-1.1) mg/dl Glucose 182 H (70-105) mg/dL Calcium 5.9 L* 4.9 L* (8.6-10.4) mg/dl Adrenal panel 11/27/19 11/28/19 Range/Units 18:14 06:00 Sodium 138 (133-145) mmol/L Potassium 3.8 (3.3-5.1) mmol/L Chloride 103 (96-108) mmol/L Carbon Dioxide 21 L (22-30) mmol/L BUN 11 (6-20) mg/dl Creatinine 0.5 L (0.6-1.1) mg/dl Glucose 182 H (70-105) mg/dL Calcium 5.9 L* 4.9 L* (8.6-10.4) mg/dl Total Bilirubin < 0.2 (0.0-1.0) mg/dL AST 12 (0-37) U/l ALT 18 (0-40) U/l Alkaline Phosphatase 76 (39-117) U/L Total Protein 5.0 L (5.9-8.4) gm/dL Albumin 2.7 L (3.2-5.2) gm/dL Assessment and Plan (1) Sinus tachycardia Status: Acute Assessment and plan: Slowly improving. Will use IV metoprolol as needed Current Visit: Yes (2) Dehydration Status: Resolved Assessment and plan: No significant change but urine output is adequate Current Visit: No (3) Chronic intestinal pseudo-obstruction Status: Chronic Assessment and plan: Slowly improving. Will continue present therapy with gastric decompression Current Visit: No (4) Chronic use of steroids Problem details: for myasthenia gravis; 10+ years Status: Chronic Assessment and plan: Solu-Medrol 62 mg IV every 12 hours Current Visit: No (5) Diabetes mellitus type 2, uncontrolled Status: Chronic Assessment and plan: Accu-Cheks every 6 hours with Humalog coverage Current Visit: No - Time Spent With Patient Total time spent is greater than 50% in coordination of care (as documented) at patient's floor/unit and/or counseling patient:
--- NOTE | 2019-11-28 12:48 | XRay Report ---
CLINICAL INFORMATION: Verify esophagogastric tube position TECHNIQUE: Supine abdomen COMPARISON: Previous examination dated 11/28/2019 FINDINGS: Esophagogastric tube has been pulled back slightly. Tube tip remains within the gastric fundus. Sidehole is at the gastroesophageal junction. Bowel gas pattern is unchanged. IMPRESSION: Esophagogastric tube position as above Interpreted and Authenticated by: All Cormier 11/28/19
[2019-11-29] MEDS: 0.9 % SODIUM CHLORIDE 1,000 ML IV SCH ×3 (00:08→15:38)
[2019-11-29] MEDS: HYDROmorphone 2 MG/ML VIAL IV PRN ×9 (01:03→23:26)
[2019-11-29] MEDS: metroNIDAZOLE 500 MG/100 ML BAG IV SCH ×5 (01:04→23:15)
[2019-11-29] MEDS: PYRIDOSTIGMINE BROMIDE 10 MG/2 ML ML IM SCH ×4 (05:43→23:15)
[2019-11-29] MEDS: INSULIN LISPRO 1 UNIT/0.01 ML UNIT SQ SCH ×4 (05:48→23:25)
[2019-11-29 06:47] LABS: Basophils # (Auto) 0.01 K/mcL (0.00-0.30); Basophils % (Auto) 0.1 % (0.0-2.0); Eosinophils # (Auto) 0 K/mcL (0.00-0.70); Eosinophils % (Auto) 0 % (0.0-7.0); Granulocytes % (Auto) 89.1 % (38.0-78.0); Hematocrit 35.2 % (34.1-44.9); Lymphocytes # (Auto) 0.77 K/mcL (1.50-4.80); Lymphocytes % (Auto) 8.3 % (15.5-49.0); Mean Cell Volume 89.1 fL (80.0-100.0); Mean Corpuscular HGB Conc 31.3 g/dL (31.0-36.0); Mean Platelet Volume 9.2 fL (7.4-10.4); Monocytes # (Auto) 0.23 K/mcL (0.10-0.90); Monocytes % (Auto) 2.5 % (1.0-12.0); Platelet Count 261 K/mcL (140-440); RBC 3.95 M/mcL (3.59-5.38); Red Cell Distribution Width 15.9 % (11.5-14.5); WBC 9.3 K/mcL (4.50-11.00)
[2019-11-29 07:13] LABS: ALT/SGPT 17 U/l (0-40); AST/SGOT 11 U/l (0-37); Albumin 2.8 gm/dL (3.2-5.2); Albumin/Globulin Ratio 1.3 (1.0-2.3); Alkaline Phosphatase 73 U/L (39-117); Bilirubin,Direct < 0.2 mg/dL (0.0-0.3); Bilirubin,Total < 0.2 mg/dL (0.0-1.0); Carbon Dioxide 21 mmol/L (22-30); Chloride 103 mmol/L (96-108); Globulin 2.2 gm/dL (2.2-3.7); Glomerular Filtration Rate 107; Glucose 165 mg/dL (70-105); Lactate Dehydrogenase 283 U/L (94-250); Phosphorous 4.3 mg/dL (2.7-4.5); Triglycerides 117 mg/dl (<150); Uric Acid 3.3 mg/dL (2.5-8.0)
[2019-11-29 07:17] LABS: Blood Urea Nitrogen 5 mg/dl (6-20); Calcium 5.9 mg/dl (8.6-10.4)
[2019-11-29] MEDS ORDERED: CALCIUM GLUCONATE 4.65 MEQ/10 ML VIAL IV ONE (07:35)
[2019-11-29] MEDS ORDERED: CALCIUM GLUCONATE 9.3 MEQ in DEXTROSE 5% IN WATER 50 ML IV ONE (08:00)
--- NOTE | 2019-11-29 08:14 | XRay Report ---
CLINICAL INFORMATION: Follow-up small bowel obstruction TECHNIQUE: Supine and upright abdomen [id number]: Multiple previous examinations. Most recent previous studies are dated 11/28/2019, 11/27/2019 FINDINGS: Bowel gas pattern is improved. There is persistent dilated small bowel in the upper abdomen but small bowel in the lower abdomen and pelvis appears decompressed. Continued follow-up recommended IMPRESSION: Improved examination Interpreted and Authenticated by: All Cormier 11/29/19
[2019-11-29] MEDS: methylPREDNISolone SOD SUCC 125 MG/2 ML VIAL IV SCH ×2 (09:16→20:31)
[2019-11-29] MEDS: CALCIUM GLUCONATE 9.3 MEQ in DEXTROSE 5% IN WATER 50 ML IV SCH (09:59)
[2019-11-29] MEDS: LEVOFLOXACIN 750 MG/150 ML BAG IV SCH (11:09)
[2019-11-29] MEDS ORDERED: POLYETHYLENE GLYCOL 3350 17 GM PACKET PO SCH (13:01)
[2019-11-29] MEDS: diphenhydrAMINE 50 MG/ML VIAL IV PRN (13:16)
--- NOTE | 2019-11-29 13:16 | General Surgery Progress Note ---
Subjective Patient reports: feels better, pain is less, flatus, bowel movement, diarrhea, afebrile Narrative: Note initiated : 11/29/19 at 1:12 pm Service Date, if different from initiated Date: [] Patient: Dayanna Stephens 58 y/o F admitted on 11/26/19 for Vomiting. Chief Complaint: [patient continues to slowly improve. Her abdomen is much softer and she has good output through her stoma .she still has dilated proximal small bowel suggesting high-grade stenosis. Will continue to monitor closely and if she does not improve significantly tomorrow, will consider reoperation.] Objective Temp Pulse Resp BP Pulse Ox 97.9 F 78 14 159/92 96 11/29/19 08:30 11/29/19 08:30 11/29/19 08:30 11/29/19 08:30 11/29/19 08:30 - Additional Data Intake & Output - Last 24 hours: Intake & Output 11/27/19 11/28/19 11/29/19 11/30/19 05:59 05:59 05:59 05:59 Intake Total 4085 4955 2910 1390 Output Total 1355 1975 4125 Balance 2730 2980 -1215 1390 Weight 214 lb 217 lb 5 oz 219 lb - General physical appearance well developed, well nourished, no distress - Eyes PERRL, normal ocular movement - ENT normal pinna, normal nares, normal mucosa, no hearing loss, no congestion - Neck no masses, no bruits, trachea midline, no lymphadenopathy, no venous distension - Respiratory normal expansion, normal respiratory effort, clear to auscultation - Cardiovascular Cardiovascular exam: Present: normal rate and rhythm, RRR, +S1. Absent: JVD, tachycardia - Abdomen non tender, bowel sounds (present), surgical scars (none), masses (none) - Integumentary no rash, no growths, no abnormal pigmentation - Neurologic normal coordination, normal sensation - Musculoskeletal normal gait, normal posture - Psychiatric oriented to time, oriented to person, oriented to place, speech is normal, memory intact - Labs 11/29/19 05:17 11/29/19 05:17 Diabetes panel 11/28/19 11/29/19 Range/Units 18:10 05:17 Sodium 137 (133-145) mmol/L Potassium 3.5 (3.3-5.1) mmol/L Chloride 103 (96-108) mmol/L Carbon Dioxide 21 L (22-30) mmol/L BUN 5 L (6-20) mg/dl Creatinine 0.5 L (0.6-1.1) mg/dl Glucose 165 H (70-105) mg/dL Calcium 6.5 L 5.9 L* (8.6-10.4) mg/dl AST 11 (0-37) U/l ALT 17 (0-40) U/l Alkaline Phosphatase 73 (39-117) U/L Total Protein 5.0 L (5.9-8.4) gm/dL Albumin 2.8 L (3.2-5.2) gm/dL Triglycerides 117 (<150) mg/dl Calcium panel 11/28/19 11/29/19 Range/Units 18:10 05:17 Calcium 6.5 L 5.9 L* (8.6-10.4) mg/dl Phosphorus 4.3 (2.7-4.5) mg/dL Albumin 2.8 L (3.2-5.2) gm/dL Pituitary panel 11/28/19 11/29/19 Range/Units 18:10 05:17 Sodium 137 (133-145) mmol/L Potassium 3.5 (3.3-5.1) mmol/L Chloride 103 (96-108) mmol/L Carbon Dioxide 21 L (22-30) mmol/L BUN 5 L (6-20) mg/dl Creatinine 0.5 L (0.6-1.1) mg/dl Glucose 165 H (70-105) mg/dL Calcium 6.5 L 5.9 L* (8.6-10.4) mg/dl Adrenal panel 11/28/19 11/29/19 Range/Units 18:10 05:17 Sodium 137 (133-145) mmol/L Potassium 3.5 (3.3-5.1) mmol/L Chloride 103 (96-108) mmol/L Carbon Dioxide 21 L (22-30) mmol/L BUN 5 L (6-20) mg/dl Creatinine 0.5 L (0.6-1.1) mg/dl Glucose 165 H (70-105) mg/dL Calcium 6.5 L 5.9 L* (8.6-10.4) mg/dl Total Bilirubin < 0.2 (0.0-1.0) mg/dL AST 11 (0-37) U/l ALT 17 (0-40) U/l Alkaline Phosphatase 73 (39-117) U/L Total Protein 5.0 L (5.9-8.4) gm/dL Albumin 2.8 L (3.2-5.2) gm/dL Assessment and Plan (1) Sinus tachycardia Status: Acute Assessment and plan: Will use IV metoprolol as needed Heart rate is controlled at this time Current Visit: Yes (2) Dehydration Status: Resolved Assessment and plan: BUN and creatinine are normal,, and urine output has significantly improved Current Visit: No (3) Chronic intestinal pseudo-obstruction Status: Chronic Assessment and plan: Slowly improving. Will continue present therapy with gastric decompression Current Visit: No (4) Chronic use of steroids Problem details: for myasthenia gravis; 10+ years Status: Chronic Assessment and plan: Solu-Medrol 62 mg IV every 12 hours Current Visit: No (5) Diabetes mellitus type 2, uncontrolled Status: Chronic Assessment and plan: Accu-Cheks every 6 hours with Humalog coverage Current Visit: No - Time Spent With Patient Total time spent is greater than 50% in coordination of care (as documented) at patient's floor/unit and/or counseling patient:
[2019-11-29] MEDS: POLYETHYLENE GLYCOL 3350 17 GM PACKET PO SCH (20:30)
[2019-11-30] MEDS: 0.9 % SODIUM CHLORIDE 1,000 ML IV SCH ×3 (00:28→14:11)
[2019-11-30] MEDS: HYDROmorphone 2 MG/ML VIAL IV PRN ×9 (02:50→23:49)
[2019-11-30] MEDS: PYRIDOSTIGMINE BROMIDE 10 MG/2 ML ML IM SCH ×4 (05:31→23:49)
[2019-11-30] MEDS: metroNIDAZOLE 500 MG/100 ML BAG IV SCH ×4 (05:31→23:50)
[2019-11-30] MEDS: ONDANSETRON 4 MG/2 ML VIAL IV PRN ×2 (05:47→14:35)
[2019-11-30] MEDS: INSULIN LISPRO 1 UNIT/0.01 ML UNIT SQ SCH ×4 (05:47→23:57)
[2019-11-30 06:32] LABS: Basophils # (Auto) 0.01 K/mcL (0.00-0.30); Basophils % (Auto) 0.1 % (0.0-2.0); Eosinophils # (Auto) 0 K/mcL (0.00-0.70); Eosinophils % (Auto) 0 % (0.0-7.0); Hematocrit 33.5 % (34.1-44.9); Hemoglobin 10.8 g/dL (11.2-15.7); Lymphocytes # (Auto) 0.86 K/mcL (1.50-4.80); Lymphocytes % (Auto) 10.2 % (15.5-49.0); Mean Cell Volume 87.5 fL (80.0-100.0); Mean Corpuscular HGB Conc 32.2 g/dL (31.0-36.0); Mean Platelet Volume 9.1 fL (7.4-10.4); Monocytes # (Auto) 0.31 K/mcL (0.10-0.90); Monocytes % (Auto) 3.7 % (1.0-12.0); Platelet Count 247 K/mcL (140-440); RBC 3.83 M/mcL (3.59-5.38); Red Cell Distribution Width 15.9 % (11.5-14.5); WBC 8.4 K/mcL (4.50-11.00)
[2019-11-30 07:18] LABS: ALT/SGPT 15 U/l (0-40); AST/SGOT 11 U/l (0-37); Albumin 2.8 gm/dL (3.2-5.2); Albumin/Globulin Ratio 1.3 (1.0-2.3); Alkaline Phosphatase 64 U/L (39-117); Bilirubin,Direct < 0.2 mg/dL (0.0-0.3); Bilirubin,Total < 0.2 mg/dL (0.0-1.0); Blood Urea Nitrogen 5 mg/dl (6-20); Calcium 6.4 mg/dl (8.6-10.4); Carbon Dioxide 24 mmol/L (22-30); Chloride 100 mmol/L (96-108); Globulin 2.2 gm/dL (2.2-3.7); Glomerular Filtration Rate 107; Glucose 165 mg/dL (70-105); Lactate Dehydrogenase 293 U/L (94-250); Phosphorous 3.7 mg/dL (2.7-4.5); Triglycerides 107 mg/dl (<150); Uric Acid 3.9 mg/dL (2.5-8.0)
[2019-11-30] MEDS: POLYETHYLENE GLYCOL 3350 17 GM PACKET PO SCH ×2 (08:07→21:27)
[2019-11-30] MEDS: CALCIUM GLUCONATE 9.3 MEQ in DEXTROSE 5% IN WATER 50 ML IV SCH (08:07)
[2019-11-30] MEDS ORDERED: CALCIUM GLUCONATE 4.65 MEQ/10 ML VIAL IV ONE (09:16)
[2019-11-30] MEDS ORDERED: MAGNESIUM SULFATE 2 GM/50 ML BAG IV ONE (09:18)
[2019-11-30] MEDS: LEVOFLOXACIN 750 MG/150 ML BAG IV SCH (09:22)
[2019-11-30] MEDS: methylPREDNISolone SOD SUCC 125 MG/2 ML VIAL IV SCH ×2 (09:24→21:27)
[2019-11-30] MEDS ORDERED: CALCIUM GLUCONATE 9.3 MEQ in DEXTROSE 5% IN WATER 50 ML IV ONE (10:00)
[2019-11-30] MEDS: BENZOCAINE 1 SPRAY BOTTLE TOPICAL PRN (10:59)
[2019-11-30] MEDS: MAGNESIUM SULFATE 4 GM/100 ML BAG IV SCH ×2 (10:59→16:51)
--- NOTE | 2019-11-30 13:20 | XRay Report ---
CLINICAL INFORMATION: Follow-up small bowel obstruction TECHNIQUE: Supine and upright abdomen COMPARISON: Multiple previous examinations. Most recent studies are dated 11/29/2019, 11/28/2019, 11/27/2019, 11/26/2019 FINDINGS: Esophagogastric tube tip in the proximal stomach. Sidehole of the catheter is above the gastroesophageal junction. Bowel gas pattern is markedly improved. There continues to be small bowel gas but the dilatation has almost completely resolved. Appearance is consistent with resolution or significant improvement in mechanical small bowel obstruction. No pneumoperitoneum. No biliary or portal venous gas. No pneumatosis. IMPRESSION: 1. Markedly improved bowel gas pattern consistent with significant improvement or resolution of mechanical small bowel obstruction 2. Esophagogastric tube in the proximal most portion of the stomach. Sidehole is above the gastroesophageal junction Interpreted and Authenticated by: All Cormier 11/30/19
[2019-11-30] MEDS: POTASSIUM CHLORIDE 40 MEQ in DEXTROSE 5% IN WATER 500 ML IV SCH ×2 (14:16→20:11)
--- NOTE | 2019-11-30 18:29 | General Surgery Progress Note ---
Subjective Patient reports: feels better, pain is less, flatus, bowel movement, diarrhea, afebrile Narrative: Note initiated : 11/30/19 at 6:27 pm Service Date, if different from initiated Date: [] Patient: Dayanna Stephens 58 y/o F admitted on 11/26/19 for Vomiting. Chief Complaint: [Patient has good output through her stoma including gas and stool.Abdomen is flat and she has good active bowel sound. Abdominal x-rays show significant reduction in bowel gas proximally and distally with reduction in size of stoma. The ileostomy output is bilious suggesting that she is patent. ] Objective Temp Pulse Resp BP Pulse Ox 98.1 F 89 20 156/101 90 11/30/19 16:00 11/30/19 16:00 11/30/19 16:00 11/30/19 16:15 11/30/19 16:00 - Additional Data Intake & Output - Last 24 hours: Intake & Output 11/28/19 11/29/19 11/30/19 12/01/19 05:59 05:59 05:59 05:59 Intake Total 4955 2910 2950 1710 Output Total 1975 4125 3250 4525 Balance 2980 -1215 -300 -2815 Weight 217 lb 5 oz 219 lb 220 lb 1.6 oz - General physical appearance well developed, well nourished, no distress - Eyes PERRL, normal ocular movement - ENT normal pinna, normal nares, normal mucosa, no hearing loss, no congestion - Neck no masses, no bruits, trachea midline, no lymphadenopathy, no venous distension - Respiratory normal expansion, normal respiratory effort, clear to auscultation - Cardiovascular Cardiovascular exam: Present: normal rate and rhythm, RRR, +S1, +S2. Absent: JVD, tachycardia - Abdomen non tender, bowel sounds (present), surgical scars (none), masses (none) - Integumentary no rash, no growths, no abnormal pigmentation - Neurologic normal coordination, normal sensation - Musculoskeletal normal gait, normal posture - Psychiatric oriented to time, oriented to person, oriented to place, speech is normal, memory intact - Labs 11/30/19 05:29 11/30/19 05:29 Diabetes panel 11/29/19 11/30/19 Range/Units 18:00 05:29 Sodium 138 (133-145) mmol/L Potassium 3.2 L (3.3-5.1) mmol/L Chloride 100 (96-108) mmol/L Carbon Dioxide 24 (22-30) mmol/L BUN 5 L (6-20) mg/dl Creatinine 0.5 L (0.6-1.1) mg/dl Glucose 165 H (70-105) mg/dL Calcium 6.5 L 6.4 L (8.6-10.4) mg/dl AST 11 (0-37) U/l ALT 15 (0-40) U/l Alkaline Phosphatase 64 (39-117) U/L Total Protein 5.0 L (5.9-8.4) gm/dL Albumin 2.8 L (3.2-5.2) gm/dL Triglycerides 107 (<150) mg/dl Calcium panel 11/29/19 11/30/19 Range/Units 18:00 05:29 Calcium 6.5 L 6.4 L (8.6-10.4) mg/dl Phosphorus 3.7 (2.7-4.5) mg/dL Albumin 2.8 L (3.2-5.2) gm/dL Pituitary panel 11/29/19 11/30/19 Range/Units 18:00 05:29 Sodium 138 (133-145) mmol/L Potassium 3.2 L (3.3-5.1) mmol/L Chloride 100 (96-108) mmol/L Carbon Dioxide 24 (22-30) mmol/L BUN 5 L (6-20) mg/dl Creatinine 0.5 L (0.6-1.1) mg/dl Glucose 165 H (70-105) mg/dL Calcium 6.5 L 6.4 L (8.6-10.4) mg/dl Adrenal panel 11/29/19 11/30/19 Range/Units 18:00 05:29 Sodium 138 (133-145) mmol/L Potassium 3.2 L (3.3-5.1) mmol/L Chloride 100 (96-108) mmol/L Carbon Dioxide 24 (22-30) mmol/L BUN 5 L (6-20) mg/dl Creatinine 0.5 L (0.6-1.1) mg/dl Glucose 165 H (70-105) mg/dL Calcium 6.5 L 6.4 L (8.6-10.4) mg/dl Total Bilirubin < 0.2 (0.0-1.0) mg/dL AST 11 (0-37) U/l ALT 15 (0-40) U/l Alkaline Phosphatase 64 (39-117) U/L Total Protein 5.0 L (5.9-8.4) gm/dL Albumin 2.8 L (3.2-5.2) gm/dL Assessment and Plan (1) Chronic intestinal pseudo-obstruction Status: Chronic Assessment and plan: Slowly improving. Plan nasogastric tube and check abdominal x-ray in the morning. regonol 10 mg IM every 6 hours , pantoprazole 40 mg IV every 12 hours Continue to replace calcium and magnesium and potassium. We'll probably try her for liquids with ENSURE OR BREEZE in the morning Current Visit: No (2) Sinus tachycardia Status: Acute Assessment and plan: Will use IV metoprolol as needed Heart rate is controlled at this time Current Visit: Yes (3) Dehydration Status: Resolved Assessment and plan: BUN and creatinine are normal,, and urine output has significantly improved Current Visit: No (4) Chronic use of steroids Problem details: for myasthenia gravis; 10+ years Status: Chronic Assessment and plan: Solu-Medrol 62 mg IV every 12 hours Current Visit: No (5) Diabetes mellitus type 2, uncontrolled Status: Chronic Assessment and plan: Accu-Cheks every 6 hours with Humalog coverage Current Visit: No - Time Spent With Patient Total time spent is greater than 50% in coordination of care (as documented) at patient's floor/unit and/or counseling patient:
[2019-11-30] MEDS: LEVOTHYROXINE 100 MCG VIAL IV SCH (19:52)
[2019-11-30] MEDS: PANTOPRAZOLE 40 MG VIAL IV SCH (19:52)
[2019-11-30] MEDS: diphenhydrAMINE 50 MG/ML VIAL IV PRN (23:48)
[2019-12-01] MEDS: HYDROmorphone 2 MG/ML VIAL IV PRN ×7 (02:43→21:58)
[2019-12-01] MEDS: metroNIDAZOLE 500 MG/100 ML BAG IV SCH ×3 (05:37→17:02)
[2019-12-01] MEDS: PYRIDOSTIGMINE BROMIDE 10 MG/2 ML ML IM SCH ×3 (05:39→17:02)
[2019-12-01] MEDS: INSULIN LISPRO 1 UNIT/0.01 ML UNIT SQ SCH ×4 (05:45→21:10)
[2019-12-01] MEDS: 0.9 % SODIUM CHLORIDE 1,000 ML IV SCH ×5 (05:52→20:25)
[2019-12-01] MEDS: LEVOTHYROXINE 100 MCG VIAL IV SCH (06:54)
[2019-12-01] MEDS: PANTOPRAZOLE 40 MG VIAL IV SCH ×2 (06:55→17:02)
[2019-12-01] MEDS: BENZOCAINE 1 SPRAY BOTTLE TOPICAL PRN (07:07)
[2019-12-01] MEDS: ONDANSETRON 4 MG/2 ML VIAL IV PRN (07:07)
--- NOTE | 2019-12-01 07:41 | XRay Report ---
CLINICAL INFORMATION: Bowel obstruction TECHNIQUE: Supine and upright abdomen COMPARISON: Multiple previous examinations. Most recent examinations are dated 11/30/2019, 11/29/2019, 11/28/2019 FINDINGS: Esophagogastric tube in the proximal stomach. Sidehole is above the gastroesophageal junction. There is some small bowel gas. No significant dilatation. Appearance is markedly improved and consistent with resolution of mechanical small bowel obstruction. There is no pneumoperitoneum. No biliary or portal venous gas. IMPRESSION: Resolution of mechanical small bowel obstruction Interpreted and Authenticated by: All Cormier 12/01/19
[2019-12-01] MEDS ORDERED: CALCIUM GLUCONATE 4.65 MEQ/10 ML VIAL ONE (09:20)
[2019-12-01] MEDS: methylPREDNISolone SOD SUCC 125 MG/2 ML VIAL IV SCH ×2 (09:30→20:29)
[2019-12-01] MEDS: LEVOFLOXACIN 750 MG/150 ML BAG IV SCH (09:30)
[2019-12-01] MEDS: POLYETHYLENE GLYCOL 3350 17 GM PACKET PO SCH ×2 (09:30→20:29)
[2019-12-01 09:31] LABS: Basophils # (Auto) 0.01 K/mcL (0.00-0.30); Basophils % (Auto) 0.2 % (0.0-2.0); Eosinophils # (Auto) 0 K/mcL (0.00-0.70); Eosinophils % (Auto) 0 % (0.0-7.0); Granulocytes % (Auto) 85.2 % (38.0-78.0); Hemoglobin 12.2 g/dL (11.2-15.7); Lymphocytes # (Auto) 0.56 K/mcL (1.50-4.80); Lymphocytes % (Auto) 10.2 % (15.5-49.0); Mean Corpuscular HGB Conc 32.1 g/dL (31.0-36.0); Mean Platelet Volume 9.1 fL (7.4-10.4); Monocytes # (Auto) 0.24 K/mcL (0.10-0.90); Monocytes % (Auto) 4.4 % (1.0-12.0); Platelet Count 277 K/mcL (140-440); RBC 4.42 M/mcL (3.59-5.38); Red Cell Distribution Width 15.8 % (11.5-14.5); WBC 5.5 K/mcL (4.50-11.00)
[2019-12-01] MEDS: CALCIUM GLUCONATE 9.3 MEQ in DEXTROSE 5% IN WATER 50 ML IV SCH (09:31)
[2019-12-01 09:38] LABS: ALT/SGPT 14 U/l (0-40); AST/SGOT 9 U/l (0-37); Albumin 2.9 gm/dL (3.2-5.2); Albumin/Globulin Ratio 1.2 (1.0-2.3); Alkaline Phosphatase 66 U/L (39-117); Bilirubin,Direct < 0.2 mg/dL (0.0-0.3); Bilirubin,Total < 0.2 mg/dL (0.0-1.0); Blood Urea Nitrogen 4 mg/dl (6-20); Calcium 6.2 mg/dl (8.6-10.4); Carbon Dioxide 30 mmol/L (22-30); Chloride 97 mmol/L (96-108); Globulin 2.4 gm/dL (2.2-3.7); Glomerular Filtration Rate 107; Glucose 175 mg/dL (70-105); Lactate Dehydrogenase 335 U/L (94-250); Phosphorous 2.8 mg/dL (2.7-4.5); Triglycerides 126 mg/dl (<150); Uric Acid 3.9 mg/dL (2.5-8.0)
[2019-12-01] MEDS: PROMETHAZINE 25 MG/ML VIAL IV PRN (09:43)
--- NOTE | 2019-12-01 18:34 | General Surgery Progress Note ---
Subjective Patient reports: feels better, tolerating liquids well, flatus, bowel movement, diarrhea, afebrile Narrative: Note initiated : 12/01/19 at 6:31 pm Service Date, if different from initiated Date: [] Patient: Dayanna Stephens 58 y/o F admitted on 11/26/19 for Vomiting. Chief Complaint: [patient has done very well. She is tolerating full liquids without difficulty. She denies nausea. She is still having copious output through her stoma. Abdominal x-rays reveal minimal dilation of stomach and small bowel. This x-ray was taken after having nasogastric tube clamped For 12 hours. White blood count 5.5, hemoglobin 12.2, hematocrit 38, calcium 6.2, phosphorus 2.8, potassium 3.7.] Objective Temp Pulse Resp BP Pulse Ox 97.4 F 95 H 14 137/86 94 12/01/19 16:00 12/01/19 16:00 12/01/19 16:00 12/01/19 16:00 12/01/19 16:00 - Additional Data Intake & Output - Last 24 hours: Intake & Output 11/29/19 11/30/19 12/01/19 12/02/19 05:59 05:59 05:59 05:59 Intake Total 2910 2950 4350 1670 Output Total 4125 3250 7905 1725 Balance -1215 -300 -3555 -55 Weight 219 lb 220 lb 1.6 oz 212 lb 8 oz 212 lb 8 oz - General physical appearance well developed, well nourished, no distress - Eyes PERRL, normal ocular movement - ENT normal pinna, normal nares, normal mucosa, no hearing loss, no congestion - Neck no masses, no bruits, trachea midline, no lymphadenopathy, no venous distension - Respiratory normal expansion, normal respiratory effort, clear to auscultation - Cardiovascular Cardiovascular exam: Present: normal rate and rhythm, JVD, tachycardia - Labs 12/01/19 05:30 12/01/19 05:30 Diabetes panel 12/01/19 Range/Units 05:30 Sodium 141 (133-145) mmol/L Potassium 3.7 (3.3-5.1) mmol/L Chloride 97 (96-108) mmol/L Carbon Dioxide 30 (22-30) mmol/L BUN 4 L (6-20) mg/dl Creatinine 0.5 L (0.6-1.1) mg/dl Glucose 175 H (70-105) mg/dL Calcium 6.2 L (8.6-10.4) mg/dl AST 9 (0-37) U/l ALT 14 (0-40) U/l Alkaline Phosphatase 66 (39-117) U/L Total Protein 5.3 L (5.9-8.4) gm/dL Albumin 2.9 L (3.2-5.2) gm/dL Triglycerides 126 (<150) mg/dl Thyroid panel 11/30/19 Range/Units 19:00 TSH 2.37 (0.27-5.01) uIU/ml Calcium panel 12/01/19 Range/Units 05:30 Calcium 6.2 L (8.6-10.4) mg/dl Phosphorus 2.8 (2.7-4.5) mg/dL Albumin 2.9 L (3.2-5.2) gm/dL Pituitary panel 11/30/19 12/01/19 Range/Units 19:00 05:30 Sodium 141 (133-145) mmol/L Potassium 3.7 (3.3-5.1) mmol/L Chloride 97 (96-108) mmol/L Carbon Dioxide 30 (22-30) mmol/L BUN 4 L (6-20) mg/dl Creatinine 0.5 L (0.6-1.1) mg/dl Glucose 175 H (70-105) mg/dL Calcium 6.2 L (8.6-10.4) mg/dl TSH 2.37 (0.27-5.01) uIU/ml Adrenal panel 12/01/19 Range/Units 05:30 Sodium 141 (133-145) mmol/L Potassium 3.7 (3.3-5.1) mmol/L Chloride 97 (96-108) mmol/L Carbon Dioxide 30 (22-30) mmol/L BUN 4 L (6-20) mg/dl Creatinine 0.5 L (0.6-1.1) mg/dl Glucose 175 H (70-105) mg/dL Calcium 6.2 L (8.6-10.4) mg/dl Total Bilirubin < 0.2 (0.0-1.0) mg/dL AST 9 (0-37) U/l ALT 14 (0-40) U/l Alkaline Phosphatase 66 (39-117) U/L Total Protein 5.3 L (5.9-8.4) gm/dL Albumin 2.9 L (3.2-5.2) gm/dL Assessment and Plan (1) Chronic intestinal pseudo-obstruction Status: Chronic Assessment and plan: Slowly improving. Plan nasogastric tube and check abdominal x-ray in the morning. regonol 10 mg IM every 6 hours , pantoprazole 40 mg IV every 12 hours Continue to replace calcium and magnesium and potassium. We'll probably try her for liquids with ENSURE OR BREEZE in the morning Current Visit: No (2) Sinus tachycardia Status: Acute Assessment and plan: Will use IV metoprolol as needed Heart rate is controlled at this time Current Visit: Yes (3) Dehydration Status: Resolved Assessment and plan: BUN and creatinine are normal,, and urine output has significantly improved Current Visit: No (4) Chronic use of steroids Problem details: for myasthenia gravis; 10+ years Status: Chronic Assessment and plan: Solu-Medrol 62 mg IV every 12 hours Current Visit: No (5) Diabetes mellitus type 2, uncontrolled Status: Chronic Assessment and plan: Accu-Cheks every 6 hours with Humalog coverage Current Visit: No - Time Spent With Patient Total time spent is greater than 50% in coordination of care (as documented) at patient's floor/unit and/or counseling patient:
[2019-12-01] MEDS: DULoxetine 30 MG CAPSULE PO SCH (20:29)
[2019-12-01] MEDS: CYCLOBENZAPRINE 10 MG TABLET PO SCH (20:29)
[2019-12-01] MEDS: CALCITRIOL 0.25 MCG CAPSULE PO SCH (20:29)
[2019-12-01] MEDS ORDERED: CALCIUM CARBONATE 1,250 MG/5 ML ORAL.SUSP PO SCH (21:00)
[2019-12-02] MEDS: traMADol 50 MG TABLET PO PRN ×3 (00:16→23:45)
[2019-12-02] MEDS: PYRIDOSTIGMINE BROMIDE 10 MG/2 ML ML IM SCH ×5 (00:18→23:47)
[2019-12-02] MEDS: HYDROmorphone 2 MG/ML VIAL IV PRN ×6 (02:54→21:55)
[2019-12-02] MEDS: 0.9 % SODIUM CHLORIDE 1,000 ML IV SCH ×5 (03:31→20:09)
--- NOTE | 2019-12-02 06:53 | XRay Report ---
CLINICAL INFORMATION: Recurrent small bowel obstruction TECHNIQUE: Supine and upright abdomen COMPARISON: Multiple previous examinations. Most recent comparison studies are dated 12/01/2019, 11/30/2019, 11/29/2019, 11/28/2019 FINDINGS: Bowel gas pattern is unremarkable and nonobstructive. Appearance is consistent with resolution of mechanical small bowel obstruction. No acute or focal abnormality. IMPRESSION: Negative bowel gas pattern. Appearance is consistent with resolution of mechanical small bowel obstruction Interpreted and Authenticated by: All Cormier 12/02/19
[2019-12-02 07:16] LABS: Basophils # (Auto) 0.01 K/mcL (0.00-0.30); Basophils % (Auto) 0.2 % (0.0-2.0); Eosinophils # (Auto) 0 K/mcL (0.00-0.70); Eosinophils % (Auto) 0 % (0.0-7.0); Granulocytes % (Auto) 81.8 % (38.0-78.0); Hematocrit 35.5 % (34.1-44.9); Hemoglobin 11.3 g/dL (11.2-15.7); Lymphocytes # (Auto) 0.73 K/mcL (1.50-4.80); Lymphocytes % (Auto) 11.1 % (15.5-49.0); Mean Cell Volume 87.2 fL (80.0-100.0); Mean Corpuscular HGB Conc 31.8 g/dL (31.0-36.0); Mean Platelet Volume 9.2 fL (7.4-10.4); Monocytes # (Auto) 0.45 K/mcL (0.10-0.90); Monocytes % (Auto) 6.9 % (1.0-12.0); Platelet Count 252 K/mcL (140-440); RBC 4.07 M/mcL (3.59-5.38); Red Cell Distribution Width 15.8 % (11.5-14.5); WBC 6.6 K/mcL (4.50-11.00)
[2019-12-02 07:37] LABS: ALT/SGPT 12 U/l (0-40); AST/SGOT 6 U/l (0-37); Albumin 2.9 gm/dL (3.2-5.2); Albumin/Globulin Ratio 1.5 (1.0-2.3); Alkaline Phosphatase 63 U/L (39-117); Bilirubin,Direct < 0.2 mg/dL (0.0-0.3); Bilirubin,Total 0.2 mg/dL (0.0-1.0); Calcium 6.3 mg/dl (8.6-10.4); Carbon Dioxide 27 mmol/L (22-30); Chloride 102 mmol/L (96-108); Globulin 1.9 gm/dL (2.2-3.7); Glomerular Filtration Rate 101; Glucose 271 mg/dL (70-105); Lactate Dehydrogenase 283 U/L (94-250); Triglycerides 146 mg/dl (<150); Uric Acid 2.9 mg/dL (2.5-8.0)
[2019-12-02] MEDS: PANTOPRAZOLE 40 MG VIAL IV SCH ×2 (07:38→17:16)
[2019-12-02] MEDS: LEVOTHYROXINE 100 MCG VIAL IV SCH (07:39)
[2019-12-02 07:44] LABS: Blood Urea Nitrogen 7 mg/dl (6-20)
[2019-12-02] MEDS: INSULIN LISPRO 1 UNIT/0.01 ML UNIT SQ SCH ×4 (08:17→21:55)
[2019-12-02] MEDS: metFORMIN 500 MG TABLET PO SCH (08:17)
[2019-12-02] MEDS ORDERED: CALCIUM GLUCONATE 4.65 MEQ/10 ML VIAL ONE (09:54)
[2019-12-02] MEDS: CALCIUM GLUCONATE 9.3 MEQ in DEXTROSE 5% IN WATER 50 ML IV SCH (10:28)
[2019-12-02] MEDS: POLYETHYLENE GLYCOL 3350 17 GM PACKET PO SCH ×2 (10:29→21:55)
[2019-12-02] MEDS: CALCIUM CARBONATE 1,250 MG/5 ML ORAL.SUSP PO SCH ×2 (10:29→22:03)
[2019-12-02] MEDS: methylPREDNISolone SOD SUCC 125 MG/2 ML VIAL IV SCH ×2 (10:29→21:54)
[2019-12-02] MEDS: CALCITRIOL 0.25 MCG CAPSULE PO SCH ×3 (10:30→21:54)
[2019-12-02] MEDS: DULoxetine 30 MG CAPSULE PO SCH ×2 (10:30→21:54)
[2019-12-02] MEDS: CYCLOBENZAPRINE 10 MG TABLET PO SCH ×3 (10:30→21:54)
--- NOTE | 2019-12-02 11:35 | General Surgery Progress Note ---
Subjective Patient reports: feels better, tolerating liquids well Narrative: Note initiated : 12/02/19 at 11:33 am Service Date, if different from initiated Date: [] Patient: Dayanna Stephens a 58 y/o F admitted on 11/26/19 for Vomiting. Chief Complaint: []Pseudo obstruction of small bowel; chronically Feels better today and has Green stool n ileostomy bad Objective Temp Pulse Resp BP Pulse Ox 97.7 F 77 18 150/81 94 12/02/19 08:00 12/02/19 08:00 12/02/19 08:00 12/02/19 08:00 12/02/19 08:00 - Additional Data Intake & Output - Last 24 hours: Intake & Output 11/30/19 12/01/19 12/02/19 12/03/19 05:59 05:59 05:59 05:59 Intake Total 2950 4350 5090 Output Total 3250 7905 3925 Balance -300 -3555 1165 Weight 220 lb 1.6 oz 212 lb 8 oz 213 lb 8 oz - General physical appearance well developed, no distress, obese - Cardiovascular Cardiovascular exam: Present: normal rate and rhythm - Abdomen soft, non tender, bowel sounds - Labs 12/02/19 05:05 12/02/19 05:05 Diabetes panel 12/02/19 Range/Units 05:05 Sodium 140 (133-145) mmol/L Potassium 3.4 (3.3-5.1) mmol/L Chloride 102 (96-108) mmol/L Carbon Dioxide 27 (22-30) mmol/L BUN 7 (6-20) mg/dl Creatinine 0.6 (0.6-1.1) mg/dl Glucose 271 H (70-105) mg/dL Calcium 6.3 L (8.6-10.4) mg/dl AST 6 (0-37) U/l ALT 12 (0-40) U/l Alkaline Phosphatase 63 (39-117) U/L Total Protein 4.8 L (5.9-8.4) gm/dL Albumin 2.9 L (3.2-5.2) gm/dL Triglycerides 146 (<150) mg/dl Calcium panel 12/02/19 Range/Units 05:05 Calcium 6.3 L (8.6-10.4) mg/dl Phosphorus 3.0 (2.7-4.5) mg/dL Albumin 2.9 L (3.2-5.2) gm/dL Pituitary panel 12/02/19 Range/Units 05:05 Sodium 140 (133-145) mmol/L Potassium 3.4 (3.3-5.1) mmol/L Chloride 102 (96-108) mmol/L Carbon Dioxide 27 (22-30) mmol/L BUN 7 (6-20) mg/dl Creatinine 0.6 (0.6-1.1) mg/dl Glucose 271 H (70-105) mg/dL Calcium 6.3 L (8.6-10.4) mg/dl Adrenal panel 12/02/19 Range/Units 05:05 Sodium 140 (133-145) mmol/L Potassium 3.4 (3.3-5.1) mmol/L Chloride 102 (96-108) mmol/L Carbon Dioxide 27 (22-30) mmol/L BUN 7 (6-20) mg/dl Creatinine 0.6 (0.6-1.1) mg/dl Glucose 271 H (70-105) mg/dL Calcium 6.3 L (8.6-10.4) mg/dl Total Bilirubin 0.2 (0.0-1.0) mg/dL AST 6 (0-37) U/l ALT 12 (0-40) U/l Alkaline Phosphatase 63 (39-117) U/L Total Protein 4.8 L (5.9-8.4) gm/dL Albumin 2.9 L (3.2-5.2) gm/dL Assessment and Plan (1) Small bowel obstruction Status: Chronic Assessment and plan: SBO appears to be resolving Current Visit: Yes (2) Low blood magnesium level Status: Acute Assessment and plan: Oral supplementation Current Visit: Yes - Time Spent With Patient Total time spent is greater than 50% in coordination of care (as documented) at patient's floor/unit and/or counseling patient: 15 - 24 minutes
[2019-12-02] MEDS: MAGNESIUM OXIDE 400 MG TABLET PO SCH (21:54)
[2019-12-03] MEDS: HYDROmorphone 2 MG/ML VIAL IV PRN (02:57)
[2019-12-03] MEDS: 0.9 % SODIUM CHLORIDE 1,000 ML IV SCH ×3 (02:58→12:01)
[2019-12-03] MEDS: PYRIDOSTIGMINE BROMIDE 10 MG/2 ML ML IM SCH ×3 (06:04→06:10)
[2019-12-03] MEDS: traMADol 50 MG TABLET PO PRN (07:44)
[2019-12-03] MEDS: PANTOPRAZOLE 40 MG VIAL IV SCH (07:45)
[2019-12-03] MEDS: LEVOTHYROXINE 100 MCG VIAL IV SCH (07:45)
[2019-12-03] MEDS: INSULIN LISPRO 1 UNIT/0.01 ML UNIT SQ SCH ×2 (07:46→11:58)
[2019-12-03 08:30] LABS: Basophils # (Auto) 0.01 K/mcL (0.00-0.30); Basophils % (Auto) 0.2 % (0.0-2.0); Eosinophils # (Auto) 0 K/mcL (0.00-0.70); Eosinophils % (Auto) 0 % (0.0-7.0); Granulocytes % (Auto) 84.1 % (38.0-78.0); Hematocrit 32.2 % (34.1-44.9); Hemoglobin 10.3 g/dL (11.2-15.7); Lymphocytes # (Auto) 0.57 K/mcL (1.50-4.80); Lymphocytes % (Auto) 12.8 % (15.5-49.0); Mean Platelet Volume 9.2 fL (7.4-10.4); Monocytes # (Auto) 0.13 K/mcL (0.10-0.90); Monocytes % (Auto) 2.9 % (1.0-12.0); Platelet Count 224 K/mcL (140-440); RBC 3.66 M/mcL (3.59-5.38); Red Cell Distribution Width 15.7 % (11.5-14.5); WBC 4.5 K/mcL (4.50-11.00)
[2019-12-03 08:42] LABS: ALT/SGPT 10 U/l (0-40); AST/SGOT 6 U/l (0-37); Albumin 2.7 gm/dL (3.2-5.2); Albumin/Globulin Ratio 1.5 (1.0-2.3); Alkaline Phosphatase 51 U/L (39-117); Bilirubin,Direct < 0.2 mg/dL (0.0-0.3); Bilirubin,Total < 0.2 mg/dL (0.0-1.0); Calcium 6.4 mg/dl (8.6-10.4); Carbon Dioxide 27 mmol/L (22-30); Chloride 102 mmol/L (96-108); Globulin 1.8 gm/dL (2.2-3.7); Glomerular Filtration Rate 107; Glucose 186 mg/dL (70-105); Lactate Dehydrogenase 250 U/L (94-250); Phosphorous 3.8 mg/dL (2.7-4.5); Triglycerides 112 mg/dl (<150); Uric Acid 2.7 mg/dL (2.5-8.0)
[2019-12-03 08:44] LABS: Blood Urea Nitrogen 5 mg/dl (6-20)
[2019-12-03] MEDS: POLYETHYLENE GLYCOL 3350 17 GM PACKET PO SCH (08:47)
[2019-12-03] MEDS: DULoxetine 30 MG CAPSULE PO SCH (08:47)
[2019-12-03] MEDS: metFORMIN 500 MG TABLET PO SCH (08:47)
[2019-12-03] MEDS: methylPREDNISolone SOD SUCC 125 MG/2 ML VIAL IV SCH (08:47)
[2019-12-03] MEDS: CYCLOBENZAPRINE 10 MG TABLET PO SCH (08:47)
[2019-12-03] MEDS: CALCITRIOL 0.25 MCG CAPSULE PO SCH (08:47)
[2019-12-03] MEDS: CALCIUM CARBONATE 1,250 MG/5 ML ORAL.SUSP PO SCH (08:47)
[2019-12-03] MEDS: CALCIUM GLUCONATE 9.3 MEQ in DEXTROSE 5% IN WATER 50 ML IV SCH (08:48)
[2019-12-03] MEDS: MAGNESIUM OXIDE 400 MG TABLET PO SCH (08:48)
[2019-12-03] MEDS: ONDANSETRON 4 MG/2 ML VIAL IV PRN (08:58)
--- NOTE | 2019-12-03 10:58 | Discharge Summary ---
Providers - Providers Patient information: Note initiated : 12/03/19 at 10:55 am Service Date, if different from initiated Date: [] Patient: Dayanna Stephens 58 y/o F admitted on 11/26/19 for Vomiting. Chief Complaint: [] Discharge date: 12/03/19 Attending physician: Bertha Currie Hospitalization Hospital Course: Chronic Small bowel obstruction and Pseudo-obstruction Treated with bowel rest and IVF's. At discharge she was tolerating full liquids and ileostomy was working well Discharge diagnosis: Partail SBO resolved Exam Temp Pulse Resp BP Pulse Ox 98.5 F 70 12 146/90 97 12/03/19 08:00 12/03/19 08:00 12/03/19 08:00 12/03/19 08:00 12/03/19 08:00 - General physical appearance well developed, well nourished, no distress, no pain - Abdomen Abdomen: Present: soft, non tender, bowel sounds Hernia: Present: none (Ileostomy working well ) Discharge Plan - Patient/Caregiver Discharge Instructions Activity: increase activity as tolerated Diet: Full Liquid Additional Instructions: none - Follow up Plan Follow up with: Douglas Haque MD [Primary Care Provider] - Bertha Currie MD [Physician] - Disposition: Home, Self-Care Prognosis: Good Rehab Potential: Good Pending Studies Resuscitation Status Full Code Diet Full Liquid Diet Start SatDec 01 1121 Benzocaine (Cetacaine) 1 spray TOPICAL QIDP PRN PRN Reason: Pain Last Admin: 12/01/19 07:07 Dose: 1 spray Documented by: Admin: 11/30/19 10:59 Dose: 1 spray Documented by: Admin: 11/27/19 19:02 Dose: 1 spray Documented by: Admin: 11/27/19 06:32 Dose: 1 spray Documented by: [email or web address] Admin: 11/27/19 02:16 Dose: 1 spray Documented by: Admin: 11/26/19 23:00 Dose: 1 spray Documented by: Admin: 11/26/19 20:10 Dose: 1 spray Documented by: Admin: 11/26/19 17:35 Dose: 1 spray Documented by: Admin: 11/26/19 12:43 Dose: 1 spray Documented by: MYNOR Calcitriol (Rocaltrol) 0.25 mcg PO TID [facility] Last Admin: 12/03/19 08:47 Dose: 0.25 mcg Documented by: СЕРГЕЙ Admin: 12/02/19 21:54 Dose: 0.25 mcg Documented by: Admin: 12/02/19 14:33 Dose: 0.25 mcg Documented by: Admin: 12/02/19 10:30 Dose: 0.25 mcg Documented by: Admin: 12/01/19 20:29 Dose: 0.25 mcg Documented by: JOSE Calcium Carbonate/Glycine (Calcium Carbonate) 1,250 mg PO BID [facility] Last Admin: 12/03/19 08:47 Dose: 1,250 mg Documented by: СЕРГЕЙ Admin: 12/02/19 22:03 Dose: 1,250 mg Documented by: Admin: 12/02/19 10:29 Dose: 1,250 mg Documented by: [email or web address] Cyclobenzaprine HCl (Flexeril) 10 mg PO TID [facility] Last Admin: 12/03/19 08:47 Dose: 10 mg Documented by: СЕРГЕЙ Admin: 12/02/19 21:54 Dose: 10 mg Documented by: Admin: 12/02/19 14:33 Dose: 10 mg Documented by: Admin: 12/02/19 10:30 Dose: 10 mg Documented by: Admin: 12/01/19 20:29 Dose: 10 mg Documented by: JOSE Diagnostic Test (Pha) (Accu-Chek) 1 each FS ACHS MALENA; Protocol Last Admin: 12/03/19 07:46 Dose: 1 each Documented by: СЕРГЕЙ Admin: 12/02/19 21:39 Dose: 1 each Documented by: Admin: 12/02/19 17:03 Dose: 1 each Documented by: Admin: 12/02/19 12:10 Dose: 1 each Documented by: Admin: 12/02/19 07:38 Dose: 1 each Documented by: Admin: 12/01/19 20:55 Dose: Not Given Documented by: Admin: 12/01/19 20:28 Dose: 1 each Documented by: JOSE Diphenhydramine HCl (Benadryl) 50 mg IV Q6HP PRN PRN Reason: Allergic Symptoms Last Admin: 11/30/19 23:48 Dose: 50 mg Documented by: Admin: 11/29/19 13:16 Dose: 50 mg Documented by: [email or web address] Duloxetine HCl (Cymbalta) 30 mg PO BID [facility] Last Admin: 12/03/19 08:47 Dose: 30 mg Documented by: СЕРГЕЙ Admin: 12/02/19 21:54 Dose: 30 mg Documented by: Admin: 12/02/19 10:30 Dose: 30 mg Documented by: Admin: 12/01/19 20:29 Dose: 30 mg Documented by: JOSE Hydromorphone HCl (Dilaudid) 0.5 mg IV Q2HP PRN; Protocol PRN Reason: Per Pain Protocol Last Admin: 12/03/19 02:57 Dose: 0.5 mg Documented by: Admin: 12/02/19 21:55 Dose: 0.5 mg Documented by: Admin: 12/02/19 19:11 Dose: 0.5 mg Documented by: Admin: 12/02/19 15:34 Dose: 0.5 mg Documented by: Admin: 12/02/19 10:30 Dose: 0.5 mg Documented by: Admin: 12/02/19 05:57 Dose: 0.5 mg Documented by: Admin: 12/02/19 02:54 Dose: 0.5 mg Documented by: Admin: 12/01/19 21:58 Dose: 0.5 mg Documented by: Admin: 12/01/19 19:17 Dose: 0.5 mg Documented by: Admin: 12/01/19 15:18 Dose: 0.5 mg Documented by: Admin: 12/01/19 12:09 Dose: 0.5 mg Documented by: Admin: 12/01/19 09:42 Dose: 0.5 mg Documented by: Admin: 12/01/19 05:46 Dose: 0.5 mg Documented by: Admin: 12/01/19 02:43 Dose: 0.5 mg Documented by: Admin: 11/30/19 23:49 Dose: 0.5 mg Documented by: Admin: 11/30/19 21:31 Dose: 0.5 mg Documented by: Admin: 11/30/19 19:04 Dose: 0.5 mg Documented by: Admin: 11/30/19 16:09 Dose: 0.5 mg Documented by: Admin: 11/30/19 13:35 Dose: 0.5 mg Documented by: [email or web address] Admin: 11/30/19 11:00 Dose: 0.5 mg Documented by: [email or web address] Admin: 11/30/19 08:07 Dose: 0.5 mg Documented by: [email or web address] Admin: 11/30/19 05:42 Dose: 0.5 mg Documented by: Admin: 11/30/19 02:50 Dose: 0.5 mg Documented by: Admin: 11/29/19 23:26 Dose: 0.5 mg Documented by: Admin: 11/29/19 20:43 Dose: 0.5 mg Documented by: Admin: 11/29/19 18:26 Dose: 0.5 mg Documented by: [email or web address] Admin: 11/29/19 15:37 Dose: 0.5 mg Documented by: [email or web address] Admin: 11/29/19 12:46 Dose: 0.5 mg Documented by: [email or web address] Admin: 11/29/19 09:16 Dose: 0.5 mg Documented by: [email or web address] Admin: 11/29/19 05:41 Dose: 0.5 mg Documented by: Admin: 11/29/19 03:39 Dose: 0.5 mg Documented by: Admin: 11/29/19 01:03 Dose: 0.5 mg Documented by: Admin: 11/28/19 23:45 Dose: 0.5 mg Documented by: Admin: 11/28/19 21:38 Dose: 0.5 mg Documented by: Admin: 11/28/19 20:06 Dose: 0.5 mg Documented by: Admin: 11/28/19 18:04 Dose: 0.5 mg Documented by: [email or web address] Admin: 11/28/19 14:32 Dose: 0.5 mg Documented by: [id number] Admin: 11/28/19 12:27 Dose: 0.5 mg Documented by: [email or web address] Admin: 11/28/19 10:03 Dose: 0.5 mg Documented by: [email or web address] Admin: 11/28/19 07:35 Dose: 0.5 mg Documented by: [id number] Admin: 11/28/19 04:54 Dose: 0.5 mg Documented by: Admin: 11/28/19 02:24 Dose: 0.5 mg Documented by: Admin: 11/27/19 23:15 Dose: 0.5 mg Documented by: Admin: 11/27/19 20:52 Dose: 0.5 mg Documented by: Admin: 11/27/19 18:09 Dose: 0.5 mg Documented by: [email or web address] Admin: 11/27/19 14:56 Dose: 0.5 mg Documented by: [email or web address] Admin: 11/27/19 12:33 Dose: 0.5 mg Documented by: [email or web address] Admin: 11/27/19 09:43 Dose: 0.5 mg Documented by: LUIS ARMANDO Admin: 11/27/19 06:31 Dose: 0.5 mg Documented by: [email or web address] Admin: 11/27/19 02:14 Dose: 0.5 mg Documented by: Admin: 11/26/19 23:06 Dose: 0.5 mg Documented by: Admin: 11/26/19 19:43 Dose: 0.5 mg Documented by: Admin: 11/26/19 17:31 Dose: 0.5 mg Documented by: Admin: 11/26/19 15:31 Dose: 0.5 mg Documented by: Admin: 11/26/19 12:21 Dose: 0.5 mg Documented by: Admin: 11/26/19 07:42 Dose: 0.5 mg Documented by: Admin: 11/26/19 02:17 Dose: 0.5 mg Documented by: ETHAN Sodium Chloride (Sodium Chloride 0.9%) 1,000 mls @ 150 mls/hr IV .Q6H40M MALENA Aguilar Admin: 12/03/19 09:52 Dose: 150 mls/hr Documented by: СЕРГЕЙ Infusion: 12/03/19 09:39 Dose: 150 mls/hr Documented by: СЕРГЕЙ Admin: 12/03/19 02:58 Dose: 150 mls/hr Documented by: Infusion: 12/03/19 02:50 Dose: 150 mls/hr Documented by: Admin: 12/02/19 20:09 Dose: 150 mls/hr Documented by: Infusion: 12/02/19 20:02 Dose: 150 mls/hr Documented by: Admin: 12/02/19 18:35 Dose: Not Given Documented by: [email or web address] Admin: 12/02/19 13:21 Dose: 150 mls/hr Documented by: [email or web address] Infusion: 12/02/19 13:21 Dose: 0 mls/hr Documented by: [email or web address] Admin: 12/02/19 12:08 Dose: Not Given Documented by: [email or web address] Admin: 12/02/19 03:31 Dose: 150 mls/hr Documented by: Infusion: 12/02/19 03:06 Dose: 150 mls/hr Documented by: Admin: 12/01/19 20:25 Dose: 150 mls/hr Documented by: Infusion: 12/01/19 16:05 Dose: 150 mls/hr Documented by: Admin: 12/01/19 12:35 Dose: Not Given Documented by: Admin: 12/01/19 09:24 Dose: 150 mls/hr Documented by: Admin: 12/01/19 06:31 Dose: Not Given Documented by: Admin: 12/01/19 05:52 Dose: Not Given Documented by: Admin: 12/01/19 05:52 Dose: Not Given Documented by: Infusion: 12/01/19 05:35 Dose: 150 mls/hr Documented by: Infusion: 12/01/19 02:44 Dose: 150 mls/hr Documented by: Infusion: 11/30/19 18:00 Dose: 0 mls/hr Documented by: Admin: 11/30/19 14:11 Dose: 150 mls/hr Documented by: Infusion: 11/30/19 07:09 Dose: 150 mls/hr Documented by: Admin: 11/30/19 06:05 Dose: Not Given Documented by: Admin: 11/30/19 00:28 Dose: 150 mls/hr Documented by: Infusion: 11/29/19 22:19 Dose: 150 mls/hr Documented by: Admin: 11/29/19 15:38 Dose: 150 mls/hr Documented by: [email or web address] Admin: 11/29/19 08:00 Dose: Not Given Documented by: [email or web address] Infusion: 11/29/19 07:20 Dose: 0 mls/hr Documented by: Admin: 11/29/19 00:08 Dose: 150 mls/hr Documented by: Infusion: 11/28/19 23:09 Dose: 150 mls/hr Documented by: Admin: 11/28/19 16:28 Dose: 150 mls/hr Documented by: [email or web address] Infusion: 11/28/19 16:27 Dose: 0 mls/hr Documented by: [email or web address] Admin: 11/28/19 16:14 Dose: Not Given Documented by: [email or web address] Admin: 11/28/19 04:12 Dose: 150 mls/hr Documented by: Infusion: 11/28/19 03:38 Dose: 150 mls/hr Documented by: Admin: 11/27/19 20:57 Dose: 150 mls/hr Documented by: Infusion: 11/27/19 19:28 Dose: 0 mls/hr Documented by: Admin: 11/27/19 14:53 Dose: Not Given Documented by: [email or web address] Admin: 11/27/19 10:24 Dose: Not Given Documented by: [email or web address] Admin: 11/27/19 05:47 Dose: 150 mls/hr Documented by: Infusion: 11/27/19 04:54 Dose: 150 mls/hr Documented by: Admin: 11/26/19 22:13 Dose: 150 mls/hr Documented by: Infusion: 11/26/19 19:48 Dose: 150 mls/hr Documented by: Admin: 11/26/19 13:07 Dose: 150 mls/hr Documented by: MYNOR Calcium Gluconate 9.3 meq/ (Dextrose) 70 mls @ 70 mls/hr IV DAILY MALENA Last Admin: 12/03/19 08:48 Dose: 70 mls/hr Documented by: СЕРГЕЙ Infusion: 12/02/19 11:28 Dose: 0 mls/hr Documented by: Admin: 12/02/19 10:28 Dose: 70 mls/hr Documented by: [email or web address] Admin: 12/01/19 09:31 Dose: Not Given Documented by: Infusion: 11/30/19 09:10 Dose: 0 mls/hr Documented by: Admin: 11/30/19 08:07 Dose: 70 mls/hr Documented by: Infusion: 11/29/19 11:00 Dose: 0 mls/hr Documented by: [email or web address] Admin: 11/29/19 09:59 Dose: 70 mls/hr Documented by: [email or web address] Infusion: 11/28/19 10:00 Dose: 0 mls/hr Documented by: [email or web address] Admin: 11/28/19 09:00 Dose: 70 mls/hr Documented by: [email or web address] Infusion: 11/27/19 16:48 Dose: 0 mls/hr Documented by: [email or web address] Admin: 11/27/19 15:48 Dose: 70 mls/hr Documented by: [email or web address] Insulin Human Lispro (Humalog) 0 unit SQ ACHS MALENA; Protocol Last Admin: 12/03/19 07:46 Dose: 4 units Documented by: СЕРГЕЙ Admin: 12/02/19 21:55 Dose: 8 units Documented by: Admin: 12/02/19 17:15 Dose: 6 units Documented by: Admin: 12/02/19 12:19 Dose: 6 units Documented by: Admin: 12/02/19 08:17 Dose: 4 units Documented by: Admin: 12/01/19 21:10 Dose: 4 units Documented by: JOSE Levothyroxine Sodium (Synthroid) 125 mcg IV QAMAC MAL[facility] Last Admin: 12/03/19 07:45 Dose: 125 mcg Documented by: СЕРГЕЙ Admin: 12/02/19 07:39 Dose: 125 mcg Documented by: Admin: 12/01/19 06:54 Dose: 125 mcg Documented by: Admin: 11/30/19 19:52 Dose: 125 mcg Documented by: JOSE Magnesium Oxide (Magnesium Oxide) 400 mg PO BID MALENA Stop: 12/05/19 09:01 Last Admin: 12/03/19 08:48 Dose: 400 mg Documented by: СЕРГЕЙ Admin: 12/02/19 21:54 Dose: 400 mg Documented by: JOSE Metformin HCl (Glucophage) 500 mg PO [facility] Last Admin: 12/03/19 08:47 Dose: 500 mg Documented by: СЕРГЕЙ Admin: 12/02/19 08:17 Dose: 500 mg Documented by: [email or web address] Methylprednisolone Sodium Succinate (Solu-Medrol) 62.5 mg IV Q12 [facility] Last Admin: 12/03/19 08:47 Dose: 62.5 mg Documented by: СЕРГЕЙ Admin: 12/02/19 21:54 Dose: 62.5 mg Documented by: Admin: 12/02/19 10:29 Dose: 62.5 mg Documented by: [email or web address] Admin: 12/01/19 20:29 Dose: 62.5 mg Documented by: Admin: 12/01/19 09:30 Dose: 62.5 mg Documented by: Admin: 11/30/19 21:27 Dose: 62.5 mg Documented by: Admin: 11/30/19 09:24 Dose: 62.5 mg Documented by: Admin: 11/29/19 20:31 Dose: 62.5 mg Documented by: Admin: 11/29/19 09:16 Dose: 62.5 mg Documented by: [email or web address] Admin: 11/28/19 20:33 Dose: 62.5 mg Documented by: Admin: 11/28/19 07:34 Dose: 62.5 mg Documented by: [email or web address] Admin: 11/27/19 20:52 Dose: 62.5 mg Documented by: [email or web address] Metoprolol Tartrate (Lopressor) 5 mg IV Q4HP PRN PRN Reason: Tachyarrhythmias Last Admin: 11/29/19 23:25 Dose: 5 mg Documented by: [email or web address] Ondansetron HCl (Zofran) 4 mg IV Q4HP PRN PRN Reason: Nausea And Vomiting Last Admin: 12/03/19 08:58 Dose: 4 mg Documented by: СЕРГЕЙ Admin: 12/01/19 07:07 Dose: 4 mg Documented by: Admin: 11/30/19 14:35 Dose: 4 mg Documented by: Admin: 11/30/19 05:47 Dose: 4 mg Documented by: Admin: 11/28/19 11:37 Dose: 4 mg Documented by: [email or web address] Admin: 11/28/19 04:54 Dose: 4 mg Documented by: Admin: 11/27/19 23:15 Dose: 4 mg Documented by: Admin: 11/27/19 18:09 Dose: 4 mg Documented by: [email or web address] Admin: 11/27/19 12:32 Dose: 4 mg Documented by: [email or web address] Admin: 11/27/19 06:31 Dose: 4 mg Documented by: [email or web address] Admin: 11/27/19 02:31 Dose: 4 mg Documented by: Admin: 11/26/19 22:29 Dose: 4 mg Documented by: Admin: 11/26/19 17:30 Dose: 4 mg Documented by: Admin: 11/26/19 05:20 Dose: 4 mg Documented by: [email or web address] Pantoprazole Sodium (Protonix) 40 mg IV BIDAC [facility] Admin: 12/03/19 07:45 Dose: 40 mg Documented by: СЕРГЕЙ Admin: 12/02/19 17:16 Dose: 40 mg Documented by: Admin: 12/02/19 07:38 Dose: 40 mg Documented by: Admin: 12/01/19 17:02 Dose: 40 mg Documented by: Admin: 12/01/19 06:55 Dose: 40 mg Documented by: Admin: 11/30/19 19:52 Dose: 40 mg Documented by: JOSE Polyethylene Glycol (Miralax) 17 gm PO BID [facility] Last Admin: 12/03/19 08:47 Dose: 17 gm Documented by: СЕРГЕЙ Admin: 12/02/19 21:55 Dose: 17 gm Documented by: Admin: 12/02/19 10:29 Dose: 17 gm Documented by: Admin: 12/01/19 20:29 Dose: 17 gm Documented by: Admin: 12/01/19 09:30 Dose: 17 gm Documented by: Admin: 11/30/19 21:27 Dose: 17 gm Documented by: Admin: 11/30/19 08:07 Dose: 17 gm Documented by: Admin: 11/29/19 20:30 Dose: 17 gm Documented by: [email or web address] Promethazine HCl (Phenergan) 12.5 mg IV Q6HP PRN PRN Reason: Nausea And Vomiting Last Admin: 12/01/19 09:43 Dose: 12.5 mg Documented by: Admin: 11/28/19 14:32 Dose: 12.5 mg Documented by: LUIS ARMANDO Admin: 11/28/19 07:34 Dose: 12.5 mg Documented by: LUIS ARMANDO Admin: 11/27/19 20:52 Dose: 12.5 mg Documented by: Admin: 11/27/19 14:55 Dose: 12.5 mg Documented by: LUIS ARMANDO Admin: 11/27/19 09:45 Dose: 12.5 mg Documented by: LUIS ARMANDO Admin: 11/27/19 03:02 Dose: 12.5 mg Documented by: Admin: 11/26/19 21:07 Dose: 12.5 mg Documented by: Admin: 11/26/19 14:55 Dose: 12.5 mg Documented by: Admin: 11/26/19 07:43 Dose: 12.5 mg Documented by: MYNOR Tramadol HCl (Ultram) 100 mg PO Q8HP PRN PRN Reason: Pain Last Admin: 12/03/19 07:44 Dose: 100 mg Documented by: СЕРГЕЙ Admin: 12/02/19 23:45 Dose: 100 mg Documented by: Admin: 12/02/19 14:34 Dose: 100 mg Documented by: [email or web address] Admin: 12/02/19 00:16 Dose: 100 mg Documented by: JOSE Shift Summary 12/03/19 05:18 Shift Summary by Yolis Trent Patient alert and oriented x4. Slept well this shift. Her ileostomy bag was full and leaked all over her bed and gown. Linen and gown changed. Patient independent with changing her ostomy bag. Brown loose, liquid stool from ostomy noted. IVF NS@150 infusing well on left chest port. Tolerating Full liquid diet. BSL at HS 251, given insulin coverage. Patient medicated with Dilaudid 0.5 mg IV x1 and Ultram PO x1 for her shoulder pain 03/23 with moderate effect. Patient educated that she will be only taking Ultram in AM as plan for discharge. Voids adequately. SBP 150's mmHg. Patient asymptomatic. Patient states "I think I am just excited to go home". Initialized on 12/03/19 05:18 - END OF NOTE
[2019-12-03] MEDS ORDERED: PYRIDOSTIGMINE BROMIDE 10 MG/2 ML ML IM SCH (12:00)
[2019-12-03] MEDS ORDERED: HEPARIN SODIUM,PORCINE/PF 500 UNIT/5 ML SYRINGE IV ONE (12:05)
== END 2019-12-03 13:35 | disposition home or self-care (01) | DRG 390 ==
LOC: ED 20:46 → MEDSUR 11-26 00:48
PROVIDERS: ADMIT Family Medicine Adult Medicine; ATTEND Specialist

== ENCOUNTER 2019-12-12 20:46 | Inpatient (IN) ==
[2019-12-12] MEDS ORDERED: PROMETHAZINE 25 MG/ML VIAL IV ONE (21:14)
--- NOTE | 2019-12-12 21:16 | Emergency Department Note ---
Abdominal Pain HPI - General Chief Complaint: Abdominal Pain Stated Complaint: n/v/abdominal pain Time Seen by Provider: 12/12/19 21:01 Source: patient, family Mode of arrival: wheelchair Limitations: no limitations - History of Present Illness HPI Narrative: Patient reports pain and bloating and nausea and vomiting onset this evening. Onset of pain around 6 PM. Pain is 7/10. She has been nauseated for couple of hours with multiple episodes of spitting and foamy sputum may be 6 or 7 times or water. Peculiar to her right now is that it feels like previous episodes when she has had bowel obstruction but her ostomy is producing. She does sometimes can feel tympanitic to herself. Her heart rate she says goes up when she has episodes of pains in this is happening and similar. She has developed some sweatiness but no chills. She turned a bit red. No fever. Was seen here just a week and a half ago. She has not been on any narcotics for pain during this time. REVIEW OF SYSTEMS: Denies chest pain, cough, shortness of breath. Has some chronic lightheadedness/dizziness. - Related Data Home Medications Medication Instructions Recorded Confirmed DULoxetine [Cymbalta] 30 mg PO BID 11/30/16 11/26/19 Levothyroxine [Synthroid] 250 mcg PO QAMAC 08/20/17 11/26/19 Calcitriol [Rocaltrol] 0.25 mcg PO TID 02/11/19 11/26/19 B-D Syringe 3 mL 1 unit .ROUTE .MEDSUPPLY 09/30/19 11/26/19 Insulin Glargine, Human [Lantus] 5 unit SQ BID 09/30/19 11/26/19 filter needles 19 x 1 1/2" 0 units .ROUTE .MEDSUPPLY 09/30/19 11/26/19 Pyridostigmine [place] [Regonol] 5 mg SQ Q6 10/31/19 11/26/19 Previous Rx's Medication Instructions Recorded predniSONE [Prednisone] 20 mg PO [facility] #4 tab 05/18/16 metFORMIN HCL [Metformin HCl] 500 mg PO DAILY #30 tab 10/17/18 Promethazine [Phenergan] 25 mg PO Q6HP PRN #60 tab 02/13/19 Accu-Chek 1 each FS ACHS strip 10/05/19 Acetaminophen [Tylenol] 650 mg PO Q6HP PRN tab 10/05/19 traMADol [Ultram] 50 mg PO Q6HP PRN #40 tab 10/05/19 metoprolol succinate 25 mg 25 mg PO QDAY #30 tab 10/19/19 tablet,extended release 24 hr Accu-Chek 1 each FS ACHS strip 12/03/19 Benzocaine [Cetacaine] 1 spray TOPICAL QIDP PRN bottle 12/03/19 Calcitriol [Rocaltrol] 0.25 mcg PO TID cap 12/03/19 Cyclobenzaprine [Flexeril] 10 mg PO TID tab 12/03/19 Allergies Allergy/AdvReac Type Severity Reaction Status Date / Time Sulfa (Sulfonamide Allergy Severe Anaphylaxis Verified 11/25/19 20:46 Antibiotics) adhesive tape AdvReac Mild Blister Verified 11/25/19 20:46 metoclopramide [From Reglan] AdvReac Mild Anxiety Verified 11/25/19 20:46 steri strips AdvReac Mild Blister Uncoded 12/02/19 06:48 Abdominal Pain PMH - Past Medical History [facility] Narrative: Medical History (Last Updated 10/31/19 @ 00:47 by Robb Goldberg DO) Chronic, continuous use of opioids (Chronic) Myasthenia gravis (Chronic) Obesity, Class II, BMI 35-39.9 (Chronic) LA (obstructive sleep apnea) (Chronic) Hypertension (Chronic) Diabetes mellitus type 2, uncontrolled (Chronic) Sinus tachycardia (Resolved) Chronic intestinal pseudo-obstruction (Chronic) Abdominal pain (Chronic) Recurrent intestinal obstruction (Chronic) Chronic use of steroids (Chronic) Abnormal liver enzymes (Chronic) Hypothyroidism (Chronic) Sarcoidosis (Chronic) Polyglandular autoimmune syndrome (Chronic) Recurrent abdominal pain (Chronic) Abdominal pain (Resolved) Abdominal wound dehiscence (Resolved) Achalasia and cardiospasm (Resolved) Acute respiratory insufficiency (Resolved) Adverse reaction to drug (Resolved) Anaphylaxis (Resolved) Bowel obstruction (Resolved) 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) Constipation due to neurogenic bowel (Resolved) Constipation due to pain medication therapy (Resolved) Dehydration (Resolved) Dehydration (Resolved) Encounter for care related to Port-a-Cath (Resolved) Fecal impaction (Resolved) Foot sprain (Resolved) Hypercalcemia (Resolved) Hypocalcemia (Resolved) Hyponatremia (Resolved) Ileus (Resolved) Infiltrate of lung present on imaging of chest (Resolved) Intractable vomiting (Resolved) Lactic acid acidosis (Resolved) Nausea (Resolved) Nausea & vomiting (Resolved) Nausea & vomiting (Resolved) Nausea and vomiting (Resolved) Obstruction of descending colon (Resolved) Pancreatitis (Resolved) Parastomal hernia with obstruction, without gangrene (Resolved) Partial intestinal obstruction, unspecified as to cause (Resolved) Pneumonia (Resolved) Primary chronic pseudo-obstruction of large intestine (Resolved) Pseudoobstruction of colon (Resolved) Pyelonephritis (Resolved) Sepsis (Resolved) Sepsis associated hypotension (Resolved) Sepsis with acute hypoxic respiratory failure (Resolved) Severe sepsis (Resolved) Sigmoid volvulus (Resolved) Small bowel obstruction (Resolved) Small bowel obstruction (Resolved) Small bowel obstruction (Resolved) Small bowel obstruction (Resolved) Small bowel obstruction (Resolved) Small bowel obstruction due to adhesions (Resolved) Small bowel obstruction due to postoperative adhesions (Resolved) Small bowel obstruction, partial (Resolved) Supraventricular tachycardia (Resolved) UTI (urinary tract infection) (Resolved) UTI (urinary tract infection) (Resolved) Volvulus of sigmoid colon (Resolved) Past Surgical History (Last Reviewed 10/19/19 @ 12:47 by Bertha Currie MD) History of exploratory laparotomy (Acute) History of exploratory laparotomy (Acute) History of exploratory laparotomy (Acute) History of exploratory laparotomy (Acute) S/P ileostomy (Resolved) Family History (Last Reviewed 10/19/19 @ 12:47 by Bertha Currie MD) Father CAD (coronary artery disease) Mother CAD (coronary artery disease) Grandfather CVA (cerebral vascular accident) Grandmother CVA (cerebral vascular accident) Medical history: Reports: COPD, hypertension, hypothyroidism, other (Myasthenia gravis). 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 Denies: marijuana Physical Exam Limitations: no limitations General appearance: alert, in no apparent distress Head: atraumatic, normocephalic Eye: Present: normal appearance, PERRL, EOMI. Absent: scleral icterus, conjunctival injection ENT: Present: normal oropharynx, mucous membranes dry (mildly) Neck: Present: trachea midline. Absent: lymphadenopathy, thyromegaly Chest: Present: symmetric chest wall rise Respiratory: Present: normal lung sounds bilaterally. Absent: respiratory distress, wheezes, stridor, accessory muscle use, prolonged expiratory phase Cardiovascular: Present: regular rate, tachycardia. Absent: systolic murmur, diastolic murmur Abdominal: Present: soft, tenderness (mostly upper abd epig and left). Absent: distention, guarding, rebound, rigidity, organomegaly, mass Extremities: Absent: pedal edema, pretibial edema, calf tenderness Back: Absent: CVA tenderness (R), CVA tenderness (L), spinous process tenderness Neurological: Present: alert, oriented X3 Psychiatric: Present: normal affect, normal mood Skin: Present: warm, dry Course Vital Signs Temperature 98.2 F 12/12/19 20:47 Pulse Rate 131 H 12/12/19 20:47 Respiratory Rate 20 12/12/19 20:47 Blood Pressure 187/107 12/12/19 20:47 Pulse Oximetry (%) 93 12/12/19 20:47 Temperature 98.2 F 12/12/19 20:47 Pulse Rate 116 H 12/13/19 00:16 Respiratory Rate 31 H 12/13/19 00:01 Blood Pressure 163/79 12/13/19 00:16 Pulse Oximetry (%) 94 12/13/19 00:16 Abdominal Pain - MDM Narrative Medical decision making narrative: 9:07 PM - . Here with abdominal pain, bloating, sweats, nausea, vomiting with tachycardia and elevated blood pressure. We will do labs, x-ray upright, promethazine, hydromorphone. Patient has a longstanding known history of recurrent bowel problems and issues that include multiple obstructions. X-ray demonstrates significantly dilated bowel in multiple areas with a few air-fluid levels. There is audible ostomy output. Labs are fairly unremarkable except her white count is above her usual at 11.3. 11:40 PM approximately - I spoke with Dr. Currie who agrees with going ahead with nasogastric tube and same medications and conservative treatment. He is willing to accept her in patient care supervision. - Lab Data Result diagrams: 12/12/19 21:14 12/12/19 21:14 Lab Results 12/12/19 12/12/19 Range/Units 21:14 21:14 WBC 11.3 H (4.50-11.00) K/mcL RBC 4.29 (3.59-5.38) M/mcL Hgb 12.3 (11.2-15.7) g/dL Hct 38.0 (34.1-44.9) % MCV 88.6 (80.0-100.0) fL MCH 28.7 (26.0-34.0) pg MCHC 32.4 (31.0-36.0) g/dL RDW 16.2 H (11.5-14.5) % Plt Count 261 (140-440) K/mcL MPV 9.4 (7.4-10.4) fL Gran % 69.4 (38.0-78.0) % Lymph % (Auto) 22.0 (15.5-49.0) % [place] % (Auto) 7.9 (1.0-12.0) % Eos % (Auto) 0.2 (0.0-7.0) % Baso % (Auto) 0.5 (0.0-2.0) % Gran # 7.81 (1.80-8.00) K/mcL Lymph # (Auto) 2.48 (1.50-4.80) K/mcL [place] # (Auto) 0.89 (0.10-0.90) K/mcL Eos # (Auto) 0.02 (0.00-0.70) K/mcL Baso # (Auto) 0.06 (0.00-0.30) K/mcL Sodium 137 (133-145) mmol/L Potassium 3.9 (3.3-5.1) mmol/L Chloride 93 L (96-108) mmol/L Carbon Dioxide 28 (22-30) mmol/L Anion Gap 16.0 (8-16) BUN 15 (6-20) mg/dl Creatinine 0.8 (0.6-1.1) mg/dl GFR Calculation 82 Glucose 189 H (70-105) mg/dL Calcium 9.3 (8.6-10.4) mg/dl Total Bilirubin < 0.2 (0.0-1.0) mg/dL AST 10 (0-37) U/l ALT 16 (0-40) U/l Alkaline Phosphatase 79 (39-117) U/L Total Protein 6.6 (5.9-8.4) gm/dL Albumin 3.5 (3.2-5.2) gm/dL Globulin 3.1 (2.2-3.7) gm/dL Albumin/Globulin Ratio 1.1 (1.0-2.3) Disposition Pt seen by INSURANCE SALES MANAGER/PA only: No Clinical Impression: Partial small bowel obstruction Nausea & vomiting Qualifiers: Vomiting type: unspecified Vomiting Intractability: non-intractable Qualified Code(s): R11.2 - Nausea with vomiting, unspecified Summary: With patient's presentation and findings similar to previous and limited options she will be placed inpatient for pain and nausea control with a nasogastric tube and n.p.o. attending physician. See admitting orders. Consider steroid replacement to be continued at least at previous levels (20 mg daily; equals 16 mg daily of methylprednisolone) versus higher "stress" levels. Monitor blood sugars. Holding insulin for now since is low dose and she is NPO. Her pyridostigmine will need to be added. Patient states she takes it intramuscular either every 6 or every 8 hours when she is in. Other medicine she can resume taking once her nasogastric tube is out. Disposition: Xfer As Outpt/Obs ([facility]) Condition: Fair Referrals: Douglas Haque MD [Primary Care Provider] -
[2019-12-12] MEDS: HYDROmorphone 2 MG/ML VIAL IV PRN ×2 (21:33→22:09)
[2019-12-12 21:42] LABS: Basophils # (Auto) 0.06 K/mcL (0.00-0.30); Basophils % (Auto) 0.5 % (0.0-2.0); Eosinophils # (Auto) 0.02 K/mcL (0.00-0.70); Eosinophils % (Auto) 0.2 % (0.0-7.0); Granulocytes % (Auto) 69.4 % (38.0-78.0); Hemoglobin 12.3 g/dL (11.2-15.7); Lymphocytes # (Auto) 2.48 K/mcL (1.50-4.80); Mean Cell Volume 88.6 fL (80.0-100.0); Mean Corpuscular HGB Conc 32.4 g/dL (31.0-36.0); Mean Platelet Volume 9.4 fL (7.4-10.4); Monocytes # (Auto) 0.89 K/mcL (0.10-0.90); Monocytes % (Auto) 7.9 % (1.0-12.0); Platelet Count 261 K/mcL (140-440); RBC 4.29 M/mcL (3.59-5.38); Red Cell Distribution Width 16.2 % (11.5-14.5); WBC 11.3 K/mcL (4.50-11.00)
[2019-12-12 22:03] LABS: ALT/SGPT 16 U/l (0-40); AST/SGOT 10 U/l (0-37); Albumin 3.5 gm/dL (3.2-5.2); Albumin/Globulin Ratio 1.1 (1.0-2.3); Alkaline Phosphatase 79 U/L (39-117); Bilirubin,Total < 0.2 mg/dL (0.0-1.0); Blood Urea Nitrogen 15 mg/dl (6-20); Calcium 9.3 mg/dl (8.6-10.4); Carbon Dioxide 28 mmol/L (22-30); Globulin 3.1 gm/dL (2.2-3.7); Glomerular Filtration Rate 82; Glucose 189 mg/dL (70-105)
[2019-12-12 22:07] LABS: Chloride 93 mmol/L (96-108)
[2019-12-13] MEDS ORDERED: PROMETHAZINE 25 MG/ML VIAL IV PRN (00:36)
[2019-12-13] MEDS ORDERED: NALOXONE HCL 0.4 MG/ML VIAL IV PRN (00:36)
[2019-12-13] MEDS ORDERED: PROMETHAZINE 25 MG/ML VIAL IV ONE (00:41)
[2019-12-13] MEDS ORDERED: 0.9 % SODIUM CHLORIDE 1,000 ML IV SCH (00:45)
[2019-12-13] MEDS ORDERED: HYDROmorphone 2 MG/ML VIAL IV PRN ×2 (00:48→01:23)
[2019-12-13] MEDS ORDERED: ONDANSETRON 4 MG/2 ML VIAL IV PRN (01:23)
[2019-12-13] MEDS ORDERED: ACETAMINOPHEN 1,000 MG in PREMIX 1 BAG IV SCH (01:23)
[2019-12-13] MEDS ORDERED: METOPROLOL TARTRATE 5 MG/5 ML VIAL IV PRN (01:23)
[2019-12-13] MEDS: 0.9 % SODIUM CHLORIDE 1,000 ML IV SCH ×3 (01:35→19:46)
[2019-12-13] MEDS ORDERED: METOPROLOL TARTRATE 5 MG/5 ML VIAL IV ONE (01:43)
[2019-12-13] MEDS ORDERED: ACETAMINOPHEN 1,000 MG/100 ML BOTTLE IV ONE (01:43)
[2019-12-13] MEDS ORDERED: HYDROmorphone 2 MG/ML VIAL ONE (02:10)
[2019-12-13] MEDS ORDERED: ONDANSETRON 4 MG/2 ML VIAL ONE (02:10)
[2019-12-13] MEDS: HYDROmorphone 2 MG/ML VIAL IV PRN ×9 (02:17→22:06)
[2019-12-13] MEDS: INSULIN LISPRO 1 UNIT/0.01 ML UNIT SQ SCH ×4 (05:29→23:46)
[2019-12-13] MEDS: 0.9 % SODIUM CHLORIDE 10 ML SYRINGE IV SCH ×3 (05:29→22:06)
--- NOTE | 2019-12-13 06:17 | XRay Report ---
CLINICAL INFORMATION: pain, bloating; hx of obstruction COMPARISON: 12/02/2019 FINDINGS: The stomach and multiple loops of small bowel are moderately dilated with air-fluid levels compatible recurrent distal small bowel obstruction. No free air or soft tissue mass IMPRESSION: Recurrent distal small bowel obstruction Interpreted and Authenticated by: All Lundberg 12/13/19
--- NOTE | 2019-12-13 06:31 | XRay Report ---
CLINICAL INFORMATION: post nasogastric tube insertion COMPARISON: 12/12/2019 2143 hours. FINDINGS: NG tube tip overlies the gastric fundus. The NG tube is looped within the mid esophagus. Stomach and multiple loops of small bowel are moderately dilated compatible with recurrent distal small bowel obstruction IMPRESSION: Malpositioned NG tube. Tip is in the gastric fundus and the tube is looped in the mid esophagus.. Recurrent distal small bowel obstruction pattern is unchanged Interpreted and Authenticated by: All Lundberg 12/13/19
--- NOTE | 2019-12-13 06:32 | XRay Report ---
CLINICAL INFORMATION: F/U OF INTESTINAL PSEUDOOBSTRUCTION COMPARISON: None. FINDINGS: NG tube tip is in the proximal gastric body. Stomach is now decompressed. There are multiple loops of moderately dilated small bowel in mid abdomen which contain air-fluid levels. Findings compatible recurrent distal small bowel obstruction. No free air to support perforation. IMPRESSION: Recurrent distal small bowel obstruction pattern unchanged. NG tip in the gastric body - stomach now appears decompressed. Interpreted and Authenticated by: All Lundberg 12/13/19
[2019-12-13 06:50] LABS: ALT/SGPT 13 U/l (0-40); AST/SGOT 12 U/l (0-37); Albumin 3.3 gm/dL (3.2-5.2); Alkaline Phosphatase 70 U/L (39-117); Bilirubin,Direct < 0.2 mg/dL (0.0-0.3); Bilirubin,Total 0.2 mg/dL (0.0-1.0); Carbon Dioxide 29 mmol/L (22-30); Chloride 96 mmol/L (96-108); Glucose 162 mg/dL (70-105); Lactate Dehydrogenase 246 U/L (94-250); Uric Acid 4.3 mg/dL (2.5-8.0)
[2019-12-13 06:52] LABS: Albumin/Globulin Ratio 1.3 (1.0-2.3); Blood Urea Nitrogen 18 mg/dl (6-20); Calcium 8.7 mg/dl (8.6-10.4); Globulin 2.6 gm/dL (2.2-3.7); Glomerular Filtration Rate 96; Phosphorous 5.7 mg/dL (2.7-4.5); Triglycerides 367 mg/dl (<150)
[2019-12-13] MEDS: ACETAMINOPHEN 1,000 MG/100 ML BOTTLE IV SCH ×3 (08:01→19:58)
[2019-12-13] MEDS: HEPARIN 5,000 UNIT/ML VIAL SQ SCH ×2 (08:03→21:15)
[2019-12-13] MEDS ORDERED: CALCIUM GLUCONATE 4.65 MEQ/10 ML VIAL IV SCH (09:00)
[2019-12-13] MEDS ORDERED: MAGNESIUM SULFATE 32.48 MEQ in DEXTROSE 5% IN WATER 50 ML IV ONE (09:22)
[2019-12-13] MEDS ORDERED: MAGNESIUM SULFATE 4 GM/100 ML BAG IV ONE (10:00)
[2019-12-13] MEDS: PYRIDOSTIGMINE BROMIDE 10 MG/2 ML ML IM SCH ×6 (10:37→23:42)
[2019-12-13] MEDS ORDERED: CALCIUM GLUCONATE 4.65 MEQ/10 ML VIAL ONE (10:43)
[2019-12-13] MEDS: CALCIUM GLUCONATE 9.3 MEQ in DEXTROSE 5% IN WATER 50 ML IV SCH (10:55)
--- NOTE | 2019-12-13 14:14 | General Surg History&Physical ---
History of Present Illness Patient information: Note initiated : 12/13/19 at 2:14 pm Service Date, if different from initiated Date: [] Patient: Dayanna Stephens a 58 y/o F admitted on 12/13/19 for n/v/abdominal pain. Chief Complaint: [] HPI: Ms. Stephens is a 58 year old F admitted with abdominal pain, nausea and vomiting. The patient has a long-term history of chronic intestinal pseudoobstruction with multiple admissions over the past 3 years. She was discharged 10 days prior to her admission. She gives a history of onset of abdominal distention, pain, nausea and vomiting. When evaluated in the emergency room, she was noted to have dilated stomach, duodenum and small bowel with the extension of the dilation to the stoma with output of a small amount of liquid stool. Patient has presented in similar fashion in the past and she will be treated nonoperatively Review of Systems - Constitutional fatigue, headache(s), malaise, weakness - EENT Nose, mouth and throat: headache(s) - Cardiovascular palpatations, rapid heart rate, no pedal edema - Respiratory no cough, no dyspnea, no dyspnea on exertion - Gastrointestinal abdominal pain, change in bowel habits, heartburn, nausea, vomiting - Musculoskeletal arthralgias, back pain, neck pain - Integumentary no new lesions, no non-healing lesions, no pruritus, no rash - Neurological headache(s), no confusion - Psychiatric anxiety, depression - Endocrine fatigue - Hematologic/Lymphatic no easy bleeding, no easy bruising, no lymphadenopathy - Allergic/Immunologic no tongue swelling, no throat swelling, no uticaria, no wheezing, no lip swelling Past History Past medical history: Myasthenia gravis. Obstructive sleep apnea. Hypertension Diabetes mellitus type 2, uncontrolled. Chronic intestinal pseudoobstruction. Sarcoidosis. Polyglandular autoimmune syndrome. Recurrent intestinal adhesions. Past surgical history: History of thymectomy for myasthenia gravis. 6. Sigmoid colectomy for volvulus with colostomy. Small bowel resection for obstruction. Subtotal colectomy with ileostomy. Laparotomy with adhesion lysis. Laparotomy with adhesio lysis and repair of parastomal hernia Past family history: Coronary artery disease. Stroke Past social history: Former smoker. Denies alcohol use. Denies drug use Medications and Allergies Home Medications Medication Instructions Recorded Confirmed Type predniSONE [Prednisone] 20 mg PO [facility] #4 tab 05/18/16 12/24/19 Rx DULoxetine [Cymbalta] 30 mg PO BID 11/30/16 12/24/19 History Levothyroxine [Synthroid] 250 mcg PO QAMAC 08/20/17 12/24/19 History metFORMIN HCL [Metformin HCl] 500 mg PO DAILY #30 tab 10/17/18 12/24/19 Rx Calcitriol [Rocaltrol] 0.5 mcg PO TID 02/11/19 12/24/19 History Promethazine [Phenergan] 25 mg PO Q6HP PRN #60 tab 02/13/19 12/24/19 Rx Insulin Glargine, Human [Lantus] 5 unit SQ BID 09/30/19 12/24/19 History Acetaminophen [Tylenol] 650 mg PO Q6HP PRN tab 10/05/19 12/24/19 Rx traMADol [Ultram] 50 mg PO Q6HP PRN #40 tab 10/05/19 12/24/19 Rx Accu-Chek 1 each [place] ACHS strip 12/03/19 12/24/19 Rx Benzocaine [Cetacaine] 1 spray TOPICAL QIDP PRN bottle 12/03/19 12/24/19 Rx Cyclobenzaprine [Flexeril] 10 mg PO BIDP PRN 12/13/19 12/24/19 History Magnesium Oxide [Magnesium] 250 mg PO BID 12/13/19 12/24/19 History Metoprolol Succinate 25 mg PO QDAY PRN 12/13/19 12/24/19 History Pyridostigmine [place] [Regonol] 10 mg IM Q6H 12/16/19 12/25/19 History Ondansetron [Zofran ODT] 4 mg SL Q4HP PRN 12/24/19 12/24/19 History Promethazine [Phenergan] 25 mg [place] Q6HP PRN 12/24/19 12/24/19 History erythromycin 250 mg tablet,delayed 250 mg PO QID #120 tablet. 12/30/19 Rx release Allergies Allergy/AdvReac Type Severity Reaction Status Date / Time Sulfa (Sulfonamide Allergy Severe Anaphylaxis Verified 12/24/19 00:39 Antibiotics) adhesive tape AdvReac Mild Blister Verified 12/24/19 00:39 metoclopramide [From Reglan] AdvReac Mild Anxiety Verified 12/24/19 00:39 steri strips AdvReac Mild Blister Uncoded 12/02/19 06:48 Exam Temp Pulse Resp BP Pulse Ox 97.6 F 102 H 18 131/76 98 12/13/19 12:00 12/13/19 12:00 12/13/19 12:00 12/13/19 12:00 12/13/19 12:00 - General physical appearance well developed, well nourished, moderate distress, moderate pain, chronically ill - Eyes PERRL, normal ocular movement - ENT normal pinna, normal nares, normal mucosa, no hearing loss, no congestion - Head Head exam IM: Present: atraumatic, normocephalic - Neck no masses, no bruits, trachea midline, no lymphadenopathy, no venous distension - Cardiovascular Cardiovascular exam IM: Present: +S1, +S2, tachycardia. Absent: JVD - Respiratory normal expansion, normal respiratory effort, clear to percussion, clear to auscultation - Abdomen Abdomen: Present: soft, tender (diffusely tender abdomen with moderate distention but hyperactive bowel sounds.Functioning stoma), bowel sounds Hernia: Present: none - Genitourinary Present: normal external genitalia - Integumentary Present: no rash, no growths, no abnormal pigmentation - Neurologic Present: normal coordination, normal sensation - Musculoskeletal Present: normal gait, normal posture - Psychiatric Present: oriented to time, oriented to person, oriented to place, speech is normal, memory intact Assessment and Plan (1) Chronic intestinal pseudo-obstruction Patient will be treated nonoperatively. Nasogastric decompression. Small bowel follow-through. Re-institute pyridostiigmine Status: Chronic (2) Sinus tachycardia Status: Acute (3) Diabetes mellitus type 2, uncontrolled Status: Chronic (4) Hypertension Status: Chronic Qualifiers: Hypertension type: essential hypertension Qualified Code(s): I10 - Essential (primary) hypertension (5) Myasthenia gravis Status: Chronic (6) LA (obstructive sleep apnea) Status: Chronic (7) Polyglandular autoimmune syndrome Status: Chronic
--- NOTE | 2019-12-13 14:16 | General Surgery Progress Note ---
Subjective Patient reports: feels better, pain is less, flatus, bowel movement, diarrhea, afebrile Narrative: Note initiated : 12/13/19 at 2:14 pm Service Date, if different from initiated Date: [] Patient: Dayanna Stephens 58 y/o F admitted on 12/13/19 for n/v/abdominal pain. Chief Complaint: [] Patient feels better. She still has some abdominal distention. She has nausea but no vomiting. Her pain is less. X-rays don't reveal any significant reduction in the amount of proximal bowel dilation. Objective Temp Pulse Resp BP Pulse Ox 97.6 F 102 H 18 131/76 98 12/13/19 12:00 12/13/19 12:00 12/13/19 12:00 12/13/19 12:00 12/13/19 12:00 - Additional Data Intake & Output - Last 24 hours: Intake & Output 12/11/19 12/12/19 12/13/19 12/14/19 05:59 05:59 05:59 05:59 Intake Total 100 1170 Output Total 100 Balance 0 1170 Weight 213 lb - General physical appearance well developed, well nourished, moderate pain - Eyes PERRL, normal ocular movement - ENT normal pinna, normal nares, normal mucosa, no hearing loss, no congestion - Neck no masses, no bruits, trachea midline, no lymphadenopathy, no venous distension - Respiratory normal expansion, normal respiratory effort, clear to auscultation - Cardiovascular Cardiovascular exam: Present: normal rate and rhythm, RRR, +S1, +S2. Absent: JVD, tachycardia - Abdomen tender (moderate mid abdominal tenderness; good active bowel sounds; stoma functioning well) - Integumentary no rash, no growths, no abnormal pigmentation - Neurologic normal coordination, normal sensation - Musculoskeletal normal gait, normal posture - Psychiatric oriented to time, oriented to person, oriented to place, speech is normal, memory intact - Labs 12/12/19 21:14 12/13/19 05:00 Diabetes panel 12/12/19 12/13/19 Range/Units 21:14 05:00 Sodium 137 139 (133-145) mmol/L Potassium 3.9 3.7 (3.3-5.1) mmol/L Chloride 93 L 96 (96-108) mmol/L Carbon Dioxide 28 29 (22-30) mmol/L BUN 15 18 (6-20) mg/dl Creatinine 0.8 0.7 (0.6-1.1) mg/dl Glucose 189 H 162 H (70-105) mg/dL Calcium 9.3 8.7 (8.6-10.4) mg/dl AST 10 12 (0-37) U/l ALT 16 13 (0-40) U/l Alkaline Phosphatase 79 70 (39-117) U/L Total Protein 6.6 5.9 (5.9-8.4) gm/dL Albumin 3.5 3.3 (3.2-5.2) gm/dL Triglycerides 367 H (<150) mg/dl Calcium panel 12/12/19 12/13/19 Range/Units 21:14 05:00 Calcium 9.3 8.7 (8.6-10.4) mg/dl Phosphorus 5.7 H (2.7-4.5) mg/dL Albumin 3.5 3.3 (3.2-5.2) gm/dL Pituitary panel 12/12/19 12/13/19 Range/Units 21:14 05:00 Sodium 137 139 (133-145) mmol/L Potassium 3.9 3.7 (3.3-5.1) mmol/L Chloride 93 L 96 (96-108) mmol/L Carbon Dioxide 28 29 (22-30) mmol/L BUN 15 18 (6-20) mg/dl Creatinine 0.8 0.7 (0.6-1.1) mg/dl Glucose 189 H 162 H (70-105) mg/dL Calcium 9.3 8.7 (8.6-10.4) mg/dl Adrenal panel 12/12/19 12/13/19 Range/Units 21:14 05:00 Sodium 137 139 (133-145) mmol/L Potassium 3.9 3.7 (3.3-5.1) mmol/L Chloride 93 L 96 (96-108) mmol/L Carbon Dioxide 28 29 (22-30) mmol/L BUN 15 18 (6-20) mg/dl Creatinine 0.8 0.7 (0.6-1.1) mg/dl Glucose 189 H 162 H (70-105) mg/dL Calcium 9.3 8.7 (8.6-10.4) mg/dl Total Bilirubin < 0.2 0.2 (0.0-1.0) mg/dL AST 10 12 (0-37) U/l ALT 16 13 (0-40) U/l Alkaline Phosphatase 79 70 (39-117) U/L Total Protein 6.6 5.9 (5.9-8.4) gm/dL Albumin 3.5 3.3 (3.2-5.2) gm/dL Assessment and Plan (1) Sinus tachycardia Status: Acute Current Visit: No (2) Chronic intestinal pseudo-obstruction Status: Chronic Current Visit: No (3) Myasthenia gravis Status: Chronic Current Visit: No (4) Polyglandular autoimmune syndrome Status: Chronic Current Visit: No - Time Spent With Patient Total time spent is greater than 50% in coordination of care (as documented) at patient's floor/unit and/or counseling patient:
[2019-12-13] MEDS ORDERED: BENZOCAINE 1 SPRAY BOTTLE TOPICAL ONE (15:55)
[2019-12-14] MEDS: HYDROmorphone 2 MG/ML VIAL IV PRN ×11 (03:16→23:33)
[2019-12-14] MEDS: 0.9 % SODIUM CHLORIDE 1,000 ML IV SCH ×4 (03:18→22:19)
[2019-12-14] MEDS: PROMETHAZINE 25 MG/ML VIAL IV PRN (03:24)
[2019-12-14] MEDS: PYRIDOSTIGMINE BROMIDE 10 MG/2 ML ML IM SCH ×4 (05:45→23:34)
[2019-12-14] MEDS: INSULIN LISPRO 1 UNIT/0.01 ML UNIT SQ SCH ×4 (06:08→23:34)
[2019-12-14] MEDS: 0.9 % SODIUM CHLORIDE 10 ML SYRINGE IV SCH ×3 (06:08→21:55)
[2019-12-14 06:24] LABS: Basophils # (Auto) 0.04 K/mcL (0.00-0.30); Basophils % (Auto) 0.4 % (0.0-2.0); Eosinophils # (Auto) 0.59 K/mcL (0.00-0.70); Eosinophils % (Auto) 6.1 % (0.0-7.0); Granulocytes % (Auto) 61.4 % (38.0-78.0); Hematocrit 36.6 % (34.1-44.9); Hemoglobin 11.2 g/dL (11.2-15.7); Lymphocytes # (Auto) 2.18 K/mcL (1.50-4.80); Lymphocytes % (Auto) 22.6 % (15.5-49.0); Mean Cell Volume 92.9 fL (80.0-100.0); Mean Corpuscular HGB Conc 30.6 g/dL (31.0-36.0); Mean Platelet Volume 9.4 fL (7.4-10.4); Monocytes # (Auto) 0.92 K/mcL (0.10-0.90); Monocytes % (Auto) 9.5 % (1.0-12.0); Platelet Count 237 K/mcL (140-440); RBC 3.94 M/mcL (3.59-5.38); Red Cell Distribution Width 16.1 % (11.5-14.5); WBC 9.7 K/mcL (4.50-11.00)
[2019-12-14 06:41] LABS: ALT/SGPT 15 U/l (0-40); AST/SGOT 12 U/l (0-37); Albumin 3.3 gm/dL (3.2-5.2); Albumin/Globulin Ratio 1.3 (1.0-2.3); Alkaline Phosphatase 76 U/L (39-117); Bilirubin,Direct < 0.2 mg/dL (0.0-0.3); Bilirubin,Total 0.2 mg/dL (0.0-1.0); Blood Urea Nitrogen 13 mg/dl (6-20); Calcium 7.3 mg/dl (8.6-10.4); Carbon Dioxide 29 mmol/L (22-30); Chloride 97 mmol/L (96-108); Globulin 2.5 gm/dL (2.2-3.7); Glomerular Filtration Rate 100; Glucose 98 mg/dL (70-105); Lactate Dehydrogenase 240 U/L (94-250); Phosphorous 5.3 mg/dL (2.7-4.5); Uric Acid 5.1 mg/dL (2.5-8.0)
[2019-12-14 06:43] LABS: Triglycerides 766 mg/dl (<150)
--- NOTE | 2019-12-14 07:52 | XRay Report ---
HISTORY: Nausea, vomiting, abdominal pain and follow-up pseudoobstruction FINDINGS: There are multiple loops of dilated small intestine with air-fluid levels. They measure up to 5.5 cm in diameter. The stomach is decompressed by a nasogastric tube. The colon is decompressed. No free intra-abdominal air is present. There are Clips in the gallbladder fossa. Linear bands of scar or discoid atelectasis are present in the lung bases. Comparison with the prior exam from 12/13/19 shows improvement of the small bowel distention. IMPRESSION: Improving small bowel obstruction Interpreted and Authenticated by: Zay Juarez 12/14/19
[2019-12-14] MEDS: HEPARIN 5,000 UNIT/ML VIAL SQ SCH ×2 (09:57→20:39)
[2019-12-14] MEDS: CALCIUM GLUCONATE 9.3 MEQ in DEXTROSE 5% IN WATER 50 ML IV SCH (09:57)
[2019-12-14] MEDS ORDERED: ACETAMINOPHEN 1,000 MG/100 ML BOTTLE IV PRN (13:10)
[2019-12-14] MEDS: ACETAMINOPHEN 1,000 MG/100 ML BOTTLE IV SCH ×2 (13:46→20:39)
--- NOTE | 2019-12-14 17:20 | General Surgery Progress Note ---
Subjective Patient reports: feels better, pain is less, flatus, no bowel movement, afebrile Narrative: Note initiated : 12/14/19 at 5:18 pm Service Date, if different from initiated Date: [] Patient: Dayanna Stephens 59 y/o F admitted on 12/13/19 for n/v/abdominal pain. Chief Complaint: [patient feels better. She does pass more gas and is having stool through her stoma. Abdomen is sofer. White blood count 9.7, hemoglobin 11.2, hematocrit 36.6, calcium 7.3] Objective Temp Pulse Resp BP Pulse Ox 98.2 F 98 H 16 115/67 93 12/14/19 16:00 12/14/19 16:00 12/14/19 16:00 12/14/19 16:00 12/14/19 11:49 - Additional Data Intake & Output - Last 24 hours: Intake & Output 12/12/19 12/13/19 12/14/19 12/15/19 05:59 05:59 05:59 05:59 Intake Total 100 4042 2130 Output Total 100 1130 1070 Balance 0 2912 1060 Weight 213 lb 215 lb 6.4 oz - General physical appearance well developed, well nourished, no distress - Eyes PERRL, normal ocular movement - ENT normal pinna, normal nares, normal mucosa, no hearing loss, no congestion - Neck no masses, no bruits, trachea midline, no lymphadenopathy, no venous distension - Respiratory normal expansion, normal respiratory effort, clear to auscultation - Cardiovascular Cardiovascular exam: Present: normal rate and rhythm, RRR, +S1, +S2, tachycardia. Absent: JVD - Abdomen non tender, bowel sounds (present), surgical scars (none), masses (none) - Integumentary no rash, no growths, no abnormal pigmentation - Neurologic normal coordination, normal sensation - Musculoskeletal normal gait, normal posture - Psychiatric oriented to time, oriented to person, oriented to place, speech is normal, memory intact - Labs 12/14/19 04:51 12/14/19 04:51 Diabetes panel 12/14/19 Range/Units 04:51 Sodium 136 (133-145) mmol/L Potassium 3.5 (3.3-5.1) mmol/L Chloride 97 (96-108) mmol/L Carbon Dioxide 29 (22-30) mmol/L BUN 13 (6-20) mg/dl Creatinine 0.6 (0.6-1.1) mg/dl Glucose 98 (70-105) mg/dL Calcium 7.3 L (8.6-10.4) mg/dl AST 12 (0-37) U/l ALT 15 (0-40) U/l Alkaline Phosphatase 76 (39-117) U/L Total Protein 5.8 L (5.9-8.4) gm/dL Albumin 3.3 (3.2-5.2) gm/dL Triglycerides 766 H (<150) mg/dl Calcium panel 12/14/19 Range/Units 04:51 Calcium 7.3 L (8.6-10.4) mg/dl Phosphorus 5.3 H (2.7-4.5) mg/dL Albumin 3.3 (3.2-5.2) gm/dL Pituitary panel 12/14/19 Range/Units 04:51 Sodium 136 (133-145) mmol/L Potassium 3.5 (3.3-5.1) mmol/L Chloride 97 (96-108) mmol/L Carbon Dioxide 29 (22-30) mmol/L BUN 13 (6-20) mg/dl Creatinine 0.6 (0.6-1.1) mg/dl Glucose 98 (70-105) mg/dL Calcium 7.3 L (8.6-10.4) mg/dl Adrenal panel 12/14/19 Range/Units 04:51 Sodium 136 (133-145) mmol/L Potassium 3.5 (3.3-5.1) mmol/L Chloride 97 (96-108) mmol/L Carbon Dioxide 29 (22-30) mmol/L BUN 13 (6-20) mg/dl Creatinine 0.6 (0.6-1.1) mg/dl Glucose 98 (70-105) mg/dL Calcium 7.3 L (8.6-10.4) mg/dl Total Bilirubin 0.2 (0.0-1.0) mg/dL AST 12 (0-37) U/l ALT 15 (0-40) U/l Alkaline Phosphatase 76 (39-117) U/L Total Protein 5.8 L (5.9-8.4) gm/dL Albumin 3.3 (3.2-5.2) gm/dL Assessment and Plan (1) Sinus tachycardia Status: Acute Assessment and plan: Will restart oral medication Current Visit: No (2) Chronic intestinal pseudo-obstruction Status: Chronic Assessment and plan: Erythromycin base 250 mg 4 times daily. Discontinue nasogastric tube. Clear liquid diet as tolerated. MiraLAX with apple juice twice daily Check abdominal x-rays in the morning Current Visit: No (3) Myasthenia gravis Status: Chronic Current Visit: No (4) Polyglandular autoimmune syndrome Status: Chronic Current Visit: No - Time Spent With Patient Total time spent is greater than 50% in coordination of care (as documented) at patient's floor/unit and/or counseling patient:
[2019-12-14] MEDS: POLYETHYLENE GLYCOL 3350 17 GM PACKET PO SCH (20:39)
[2019-12-15] MEDS: HYDROmorphone 2 MG/ML VIAL IV PRN ×8 (01:24→19:39)
[2019-12-15] MEDS: ACETAMINOPHEN 1,000 MG/100 ML BOTTLE IV SCH ×5 (01:56→20:42)
[2019-12-15] MEDS: 0.9 % SODIUM CHLORIDE 1,000 ML IV SCH ×2 (02:03→11:23)
[2019-12-15] MEDS: 0.9 % SODIUM CHLORIDE 10 ML SYRINGE IV SCH ×3 (04:46→22:08)
[2019-12-15] MEDS: PYRIDOSTIGMINE BROMIDE 10 MG/2 ML ML IM SCH ×3 (05:10→17:59)
[2019-12-15] MEDS: INSULIN LISPRO 1 UNIT/0.01 ML UNIT SQ SCH ×3 (05:51→17:20)
[2019-12-15 07:30] LABS: Basophils # (Auto) 0.01 K/mcL (0.00-0.30); Basophils % (Auto) 0.2 % (0.0-2.0); Eosinophils # (Auto) 0.45 K/mcL (0.00-0.70); Eosinophils % (Auto) 8.4 % (0.0-7.0); Granulocytes % (Auto) 50.8 % (38.0-78.0); Hematocrit 33.3 % (34.1-44.9); Hemoglobin 10.1 g/dL (11.2-15.7); Lymphocytes # (Auto) 1.64 K/mcL (1.50-4.80); Lymphocytes % (Auto) 30.8 % (15.5-49.0); Mean Cell Volume 91.2 fL (80.0-100.0); Mean Corpuscular HGB Conc 30.3 g/dL (31.0-36.0); Mean Platelet Volume 9.8 fL (7.4-10.4); Monocytes # (Auto) 0.52 K/mcL (0.10-0.90); Monocytes % (Auto) 9.8 % (1.0-12.0); Platelet Count 206 K/mcL (140-440); RBC 3.65 M/mcL (3.59-5.38); Red Cell Distribution Width 15.9 % (11.5-14.5); WBC 5.3 K/mcL (4.50-11.00)
[2019-12-15 07:34] LABS: ALT/SGPT 12 U/l (0-40); AST/SGOT 11 U/l (0-37); Albumin 2.9 gm/dL (3.2-5.2); Albumin/Globulin Ratio 1.3 (1.0-2.3); Alkaline Phosphatase 66 U/L (39-117); Bilirubin,Direct < 0.2 mg/dL (0.0-0.3); Bilirubin,Total 0.2 mg/dL (0.0-1.0); Blood Urea Nitrogen 6 mg/dl (6-20); Carbon Dioxide 28 mmol/L (22-30); Chloride 99 mmol/L (96-108); Globulin 2.3 gm/dL (2.2-3.7); Glomerular Filtration Rate 107; Glucose 143 mg/dL (70-105); Lactate Dehydrogenase 245 U/L (94-250); Uric Acid 4.9 mg/dL (2.5-8.0)
[2019-12-15 07:52] LABS: Phosphorous 3.2 mg/dL (2.7-4.5); Triglycerides 484 mg/dl (<150)
--- NOTE | 2019-12-15 08:07 | XRay Report ---
HISTORY: Abdominal pain, nausea, vomiting, follow-up intestinal pseudoobstruction FINDINGS: A few loops of borderline dilated small intestine are present in the mid abdomen. They contain air-fluid levels and measure up to 3.3 cm in diameter. There is also a small amount of fluid with an air-fluid level in the stomach. The stomach is decompressed. There is relatively little air and stool in the colon. No free intra-abdominal air is present. Comparison with the prior exam from 01/01/20 shows significant improvement of the small bowel dilatation. The nasogastric tube has been removed. There are persistent bands of scar or discoid atelectasis in both lung bases. Right diaphragm is chronically elevated. IMPRESSION: Resolving pseudo bowel obstruction Interpreted and Authenticated by: Zay Juarez 12/15/19
[2019-12-15] MEDS: HEPARIN 5,000 UNIT/ML VIAL SQ SCH ×2 (08:14→21:03)
[2019-12-15] MEDS: POLYETHYLENE GLYCOL 3350 17 GM PACKET PO SCH ×2 (08:20→21:15)
[2019-12-15] MEDS: CALCIUM GLUCONATE 9.3 MEQ in DEXTROSE 5% IN WATER 50 ML IV SCH (09:48)
[2019-12-15] MEDS ORDERED: METOPROLOL SUCCINATE 25 MG TAB.XL.24H PO PRN (12:16)
[2019-12-15] MEDS ORDERED: CYCLOBENZAPRINE 10 MG TABLET PO PRN (12:16)
[2019-12-15] MEDS: CALCITRIOL 0.25 MCG CAPSULE PO SCH ×2 (15:03→21:03)
[2019-12-15] MEDS: MAGNESIUM SULFATE 4 GM/100 ML BAG IV SCH ×2 (15:07→17:48)
--- NOTE | 2019-12-15 17:05 | General Surgery Progress Note ---
Subjective Patient reports: feels better, pain is less, tolerating liquids well, flatus, bowel movement, afebrile Narrative: Note initiated : 12/15/19 at 5:02 pm Service Date, if different from initiated Date: [] Patient: Dayanna Stephens a 59 y/o F admitted on 12/13/19 for n/v/abdominal pain. Chief Complaint: [patient continues to improve. She is tolerating full liquids without difficulty. Her stoma continues to function adequately with expelling of gas and stool. She denies nausea.] Objective Temp Pulse Resp BP Pulse Ox 98.0 F 93 H 18 127/74 93 12/15/19 12:00 12/15/19 12:00 12/15/19 12:00 12/15/19 12:00 12/15/19 12:00 - Additional Data Intake & Output - Last 24 hours: Intake & Output 12/13/19 12/14/19 12/15/19 12/16/19 05:59 05:59 05:59 05:59 Intake Total 100 4042 4100 1766 Output Total 100 1130 2170 300 Balance 0 2912 1930 1466 Weight 213 lb 215 lb 6.4 oz 222 lb 8 oz 222 lb 8 oz - General physical appearance well developed, well nourished, no distress - Eyes PERRL, normal ocular movement - ENT normal pinna, normal nares, normal mucosa, no hearing loss, no congestion - Neck no masses, no bruits, trachea midline, no lymphadenopathy, no venous distension - Respiratory normal expansion, normal respiratory effort, clear to auscultation - Cardiovascular Cardiovascular exam: Present: normal rate and rhythm, RRR, +S1, +S2. Absent: JVD, tachycardia - Abdomen non tender, bowel sounds (present), surgical scars (none), masses (none), distended (no distention apparent; abdomen is soft and pliable; good active bowel sounds) - Integumentary no rash, no growths, no abnormal pigmentation - Neurologic normal coordination, normal sensation - Musculoskeletal normal gait, normal posture - Psychiatric oriented to time, oriented to person, oriented to place, speech is normal, memory intact - Labs 12/15/19 05:05 12/15/19 05:05 Diabetes panel 12/15/19 Range/Units 05:05 Sodium 136 (133-145) mmol/L Potassium 3.8 (3.3-5.1) mmol/L Chloride 99 (96-108) mmol/L Carbon Dioxide 28 (22-30) mmol/L BUN 6 (6-20) mg/dl Creatinine 0.5 L (0.6-1.1) mg/dl Glucose 143 H (70-105) mg/dL Calcium 7.0 L (8.6-10.4) mg/dl AST 11 (0-37) U/l ALT 12 (0-40) U/l Alkaline Phosphatase 66 (39-117) U/L Total Protein 5.2 L (5.9-8.4) gm/dL Albumin 2.9 L (3.2-5.2) gm/dL Triglycerides 484 H (<150) mg/dl Calcium panel 12/15/19 Range/Units 05:05 Calcium 7.0 L (8.6-10.4) mg/dl Phosphorus 3.2 (2.7-4.5) mg/dL Albumin 2.9 L (3.2-5.2) gm/dL Pituitary panel 12/15/19 Range/Units 05:05 Sodium 136 (133-145) mmol/L Potassium 3.8 (3.3-5.1) mmol/L Chloride 99 (96-108) mmol/L Carbon Dioxide 28 (22-30) mmol/L BUN 6 (6-20) mg/dl Creatinine 0.5 L (0.6-1.1) mg/dl Glucose 143 H (70-105) mg/dL Calcium 7.0 L (8.6-10.4) mg/dl Adrenal panel 12/15/19 Range/Units 05:05 Sodium 136 (133-145) mmol/L Potassium 3.8 (3.3-5.1) mmol/L Chloride 99 (96-108) mmol/L Carbon Dioxide 28 (22-30) mmol/L BUN 6 (6-20) mg/dl Creatinine 0.5 L (0.6-1.1) mg/dl Glucose 143 H (70-105) mg/dL Calcium 7.0 L (8.6-10.4) mg/dl Total Bilirubin 0.2 (0.0-1.0) mg/dL AST 11 (0-37) U/l ALT 12 (0-40) U/l Alkaline Phosphatase 66 (39-117) U/L Total Protein 5.2 L (5.9-8.4) gm/dL Albumin 2.9 L (3.2-5.2) gm/dL Assessment and Plan (1) Sinus tachycardia Status: Acute Assessment and plan: Will restart oral medication Advanced to regular diet in the morning Current Visit: No (2) Chronic intestinal pseudo-obstruction Status: Chronic Assessment and plan: Erythromycin base 250 mg 4 times daily. MiraLAX with apple juice twice daily Check abdominal x-rays in the morning Current Visit: No (3) Myasthenia gravis Status: Chronic Current Visit: No (4) Polyglandular autoimmune syndrome Status: Chronic Current Visit: No - Time Spent With Patient Total time spent is greater than 50% in coordination of care (as documented) at patient's floor/unit and/or counseling patient:
[2019-12-15] MEDS: ERYTHROMYCIN BASE 250 MG TABLET PO SCH (21:03)
[2019-12-15] MEDS: DULoxetine 30 MG CAPSULE PO SCH (21:03)
[2019-12-15] MEDS: MAGNESIUM OXIDE 400 MG TABLET PO SCH (21:03)
[2019-12-15] MEDS: INSULIN GLARGINE, HUMAN 1 UNIT/0.01 ML SQ SCH (21:14)
[2019-12-16] MEDS: HYDROmorphone 2 MG/ML VIAL IV PRN ×8 (00:14→22:55)
[2019-12-16] MEDS: PYRIDOSTIGMINE BROMIDE 10 MG/2 ML ML IM SCH ×5 (00:35→23:51)
[2019-12-16] MEDS: INSULIN LISPRO 1 UNIT/0.01 ML UNIT SQ SCH ×5 (00:46→20:14)
[2019-12-16] MEDS: 0.9 % SODIUM CHLORIDE 1,000 ML IV SCH ×4 (01:25→20:48)
[2019-12-16] MEDS: ACETAMINOPHEN 1,000 MG/100 ML BOTTLE IV SCH ×4 (02:09→20:48)
[2019-12-16] MEDS: 0.9 % SODIUM CHLORIDE 10 ML SYRINGE IV SCH ×3 (06:43→21:32)
[2019-12-16] MEDS: predniSONE 20 MG TABLET PO SCH (07:44)
[2019-12-16] MEDS: LEVOTHYROXINE 125 MCG TABLET PO SCH (07:44)
[2019-12-16] MEDS: metFORMIN 500 MG TABLET PO SCH (07:44)
--- NOTE | 2019-12-16 08:38 | XRay Report ---
HISTORY: Follow-up pseudo intestinal obstruction FINDINGS: There are still several loops of borderline dilated small bowel with air-fluid levels in the mid abdomen. They measure up to 3.7 cm in greatest diameter. The caliber of the small intestine is slightly larger today than it was yesterday. There is also an air-fluid level in nondistended stomach. There is relatively little air or stool in the colon. No free intra-abdominal air is present. IMPRESSION: Persistent low-grade small bowel pseudoobstruction Interpreted and Authenticated by: Zay Juarez 12/16/19
[2019-12-16] MEDS: MAGNESIUM OXIDE 400 MG TABLET PO SCH ×2 (09:47→19:59)
[2019-12-16] MEDS: CALCITRIOL 0.25 MCG CAPSULE PO SCH ×3 (09:47→19:59)
[2019-12-16] MEDS: HEPARIN 5,000 UNIT/ML VIAL SQ SCH ×2 (09:49→19:59)
[2019-12-16] MEDS: INSULIN GLARGINE, HUMAN 1 UNIT/0.01 ML SQ SCH ×2 (09:52→20:17)
[2019-12-16] MEDS: DULoxetine 30 MG CAPSULE PO SCH ×2 (10:00→19:59)
[2019-12-16] MEDS: ERYTHROMYCIN BASE 250 MG TABLET PO SCH ×4 (10:01→19:58)
[2019-12-16] MEDS: POLYETHYLENE GLYCOL 3350 17 GM PACKET PO SCH (10:01)
[2019-12-16] MEDS: CALCIUM GLUCONATE 9.3 MEQ in DEXTROSE 5% IN WATER 50 ML IV SCH (10:01)
[2019-12-16 10:18] LABS: ALT/SGPT 11 U/l (0-40); AST/SGOT 8 U/l (0-37); Albumin 2.6 gm/dL (3.2-5.2); Albumin/Globulin Ratio 1.1 (1.0-2.3); Alkaline Phosphatase 64 U/L (39-117); Bilirubin,Direct < 0.2 mg/dL (0.0-0.3); Bilirubin,Total < 0.2 mg/dL (0.0-1.0); Blood Urea Nitrogen 3 mg/dl (6-20); Calcium 6.4 mg/dl (8.6-10.4); Carbon Dioxide 29 mmol/L (22-30); Chloride 100 mmol/L (96-108); Globulin 2.4 gm/dL (2.2-3.7); Glomerular Filtration Rate 115; Glucose 116 mg/dL (70-105); Lactate Dehydrogenase 278 U/L (94-250); Phosphorous 2.7 mg/dL (2.7-4.5); Triglycerides 326 mg/dl (<150); Uric Acid 3.6 mg/dL (2.5-8.0)
--- NOTE | 2019-12-16 11:27 | Internal Med Progress Note ---
Medical - PN: Subj Patient information: Note initiated : 12/16/19 at 11:18 am Service Date, if different from initiated Date: [] Patient: Dayanna Stephens a 59 y/o F admitted on 12/13/19 for n/v/abdominal pain. Chief Complaint: [] Interval history: Awaiting full liquid diet. Nausea vomiting. No abdominal pain today. Oral medications restarted yesterday. Abdominal x-ray with distant several loops of borderline dilated small bowel in the midabdomen, slightly larger than yesterday. Review of Systems: denies headache/fever/chills/nausea/vomiting/chest or abdominal pain/cough/dyspnea. Otherwise see above. - Constitutional Vitals: Vital Signs Temp Pulse Resp BP Pulse Ox 97.8 F 80 18 148/79 100 12/16/19 08:00 12/16/19 08:00 12/16/19 08:00 12/16/19 08:00 12/16/19 08:00 Period Temp Pulse Resp BP Sys/[place] Pulse Ox Last 24 Hr 97.3 F-98.4 F 80-94 12-18 126-149/74-96 91-100 Intake and Output 12/15/19 12/16/19 12/16/19 21:59 05:59 13:59 Intake Total 1940 900 960 Output Total 900 1500 345 Balance 1040 -600 615 Weight 103.646 kg Intake & Output: Intake & Output 12/15/19 12/16/19 12/16/19 21:59 05:59 13:59 Intake Total 1940 900 960 Output Total 900 1500 345 Balance 1040 -600 615 Weight 103.646 kg Intake: IV 1400 100 Sodium Chloride 0.9% 1,000 ml @ 1000 125 mls/hr IV .Q8H MALENA Rx#: [id number] MAGNESIUM SULFATE 4 gm In 100 200 ml @ 50 mls/hr IV Q2H MALENA Rx#: [id number] Oral 540 800 960 Output: Void Amount 850 1325 345 Stool 50 175 Other: Meal Lunch Breakfast Percent of Meal Consumed 75% 100% Feeding Ability Assist with Tray Set Up Independent Urine Appearance Clear Clear Urine Color Dark Yellow Pale Pale Urine Odor Strong Normal Normal Stool Color Brown Stool Consistency Liquid Exam: General: Alert, Awake, No acute Distress Eyes/N/T: EOMI, Head/Neck: neck supple, CV: mildly tachy but regular, No murmurs, Pulm: Clear b/l, no wheezing/rhonchi/rales Abd: soft, nontender, +BS x4 Ext: no clubbing/cyanosis/edema Neuro: Alert, no focal deficits, moves all extremities, Skin: warm/dry Medical - PN: Obj Da - Labs CBC & Chem 7: 12/15/19 05:05 12/16/19 06:45 Labs: Abnormal Lab Results 12/16/19 12/15/19 12/15/19 06:45 05:05 05:05 Hgb 10.1 L Hct 33.3 L MCHC 30.3 L RDW 15.9 H Eos % (Auto) 8.4 H [place] # (Auto) BUN 3 L Creatinine 0.4 L 0.5 L Glucose 116 H 143 H Calcium 6.4 L 7.0 L Phosphorus Magnesium 1.5 L Lactate Dehydrogenase 278 H Total Protein 5.0 L 5.2 L Albumin 2.6 L 2.9 L Triglycerides 326 H 484 H 12/14/19 12/14/19 04:51 04:51 Hgb Hct MCHC 30.6 L RDW 16.1 H Eos % (Auto) [place] # (Auto) 0.92 H BUN Creatinine Glucose Calcium 7.3 L Phosphorus 5.3 H Magnesium Lactate Dehydrogenase Total Protein 5.8 L Albumin Triglycerides 766 H Meds: Medications Calcitriol (Rocaltrol) 0.5 mcg PO TID [facility] [place] Last Admin: 12/16/19 09:47 Dose: 0.5 mcg Documented by: Cyclobenzaprine HCl (Flexeril) 10 mg PO BIDP PRN PRN Reason: Spasms Last Admin: 12/16/19 02:12 Dose: 10 mg Documented by: Diagnostic Test (Pha) (Accu-Chek) 1 each FS Q6 PRN; Protocol PRN Reason: Hypoglycemia Last Admin: 12/16/19 06:39 Dose: 1 each Documented by: Duloxetine HCl (Cymbalta) 30 mg PO BID [facility] [place] Last Admin: 12/16/19 10:00 Dose: 30 mg Documented by: Erythromycin (Erythromycin) 250 mg PO QID [facility] [place]; Protocol Last Admin: 12/16/19 10:01 Dose: 250 mg Documented by: Heparin Sodium (Porcine) (Heparin) 5,000 unit SQ Q12 [facility] [place] Last Admin: 12/16/19 09:49 Dose: 5,000 unit Documented by: Hydromorphone HCl (Dilaudid) 1 mg IV Q2HP PRN; Protocol PRN Reason: Per Pain Protocol Last Admin: 12/16/19 07:58 Dose: 1 mg Documented by: Sodium Chloride (Sodium Chloride 0.9%) 1,000 mls @ 125 mls/hr IV .Q8H [facility] [place] Last Admin: 12/16/19 02:07 Dose: 125 mls/hr Documented by: Calcium Gluconate 9.3 meq/ (Dextrose) 70 mls @ 70 mls/hr IV DAILY [facility] [place] Last Admin: 12/16/19 10:01 Dose: 70 mls/hr Documented by: Acetaminophen (Ofirmev) 1,000 mg in 100 mls @ 200 mls/hr IV Q6H [facility] [place]; Protocol Last Admin: 12/16/19 09:10 Dose: 200 mls/hr Documented by: Insulin Glargine (Lantus) 5 unit SQ BID [facility] [place] Last Admin: 12/16/19 09:52 Dose: 5 units Documented by: Insulin Human Lispro (Humalog) 0 unit SQ Q6 [facility] [place]; Protocol Last Admin: 12/16/19 06:44 Dose: Not Given Documented by: [facility] Admin: 12/16/19 07:44 Dose: 250 mcg Documented by: Magnesium Oxide (Magnesium Oxide) 400 mg PO BID [facility] [place] Last Admin: 12/16/19 09:47 Dose: 400 mg Documented by: Metformin HCl (Glucophage) 500 mg PO [facility] Last Admin: 12/16/19 07:44 Dose: 500 mg Documented by: Metoprolol Succinate (Toprol Xl) 25 mg PO QDAY PRN PRN Reason: Tachyarrhythmias Metoprolol Tartrate (Lopressor) 5 mg IV Q4HP PRN PRN Reason: Tachyarrhythmias Ondansetron HCl (Zofran) 4 mg IV Q6HP PRN PRN Reason: Nausea And Vomiting Prednisone (Prednisone) 20 mg PO [facility] Last Admin: 12/16/19 07:44 Dose: 20 mg Documented by: Promethazine HCl (Phenergan) 12.5 mg IV Q4HP PRN; Protocol PRN Reason: Nausea/Vomiting Last Admin: 12/14/19 03:24 Dose: 12.5 mg Documented by: Pyridostigmine [place] (Regonol) 5 mg IM Q6H [facility] [place] Last Admin: 12/16/19 06:22 Dose: 5 mg Documented by: Sodium Chloride (Saline Flush) 10 ml IV Q8 [facility] [place] Last Admin: 12/16/19 06:43 Dose: Not Given Documented by: Medical - PN: A/P - Time Spent With Patient Total time spent is greater than 50% in coordination of care (as documented) at patient's floor/unit and/or counseling patient: - Narrative A/P Narrative: (1) Sinus tachycardia Status: Acute Assessment and plan: Improved after restarting home medications yesterday (2) Chronic intestinal pseudo-obstruction Status: Chronic Assessment and plan: Erythromycin base 250 mg 4 times daily. MiraLAX with apple juice twice daily f/u AXR with mild increase in dilation go small bowel, cont full liquid today and hopefully advance diet in AM Check abdominal x-rays in the morning Current Visit: No (3) Myasthenia gravis Status: Chronic Current Visit: No (4) Polyglandular autoimmune syndrome Status: Chronic Current Visit: No Medical - PN: Qual - Stroke Symptom Onset Unknown: No - VTE Deep Vein Thrombosis/Pulmonary Embolism Present on Admission: No
[2019-12-16 12:54] LABS: Basophils # (Auto) 0.02 K/mcL (0.00-0.30); Basophils % (Auto) 0.4 % (0.0-2.0); Eosinophils # (Auto) 0.29 K/mcL (0.00-0.70); Eosinophils % (Auto) 5.3 % (0.0-7.0); Granulocytes % (Auto) 64.8 % (38.0-78.0); Hematocrit 33.5 % (34.1-44.9); Hemoglobin 10.4 g/dL (11.2-15.7); Lymphocytes # (Auto) 1.19 K/mcL (1.50-4.80); Lymphocytes % (Auto) 21.8 % (15.5-49.0); Mean Cell Volume 90.1 fL (80.0-100.0); Mean Platelet Volume 9.7 fL (7.4-10.4); Monocytes # (Auto) 0.42 K/mcL (0.10-0.90); Monocytes % (Auto) 7.7 % (1.0-12.0); Platelet Count 198 K/mcL (140-440); RBC 3.72 M/mcL (3.59-5.38); Red Cell Distribution Width 15.9 % (11.5-14.5); WBC 5.5 K/mcL (4.50-11.00)
[2019-12-17] MEDS: INSULIN LISPRO 1 UNIT/0.01 ML UNIT SQ SCH ×6 (00:12→22:57)
[2019-12-17] MEDS: ACETAMINOPHEN 1,000 MG/100 ML BOTTLE IV SCH ×4 (02:23→19:52)
[2019-12-17] MEDS: HYDROmorphone 2 MG/ML VIAL IV PRN ×7 (02:33→22:58)
[2019-12-17] MEDS: 0.9 % SODIUM CHLORIDE 1,000 ML IV SCH ×3 (02:40→17:34)
[2019-12-17] MEDS: PYRIDOSTIGMINE BROMIDE 10 MG/2 ML ML IM SCH ×3 (05:49→17:52)
[2019-12-17] MEDS: 0.9 % SODIUM CHLORIDE 10 ML SYRINGE IV SCH ×3 (05:50→20:02)
[2019-12-17 07:44] LABS: ALT/SGPT 10 U/l (0-40); AST/SGOT 7 U/l (0-37); Albumin 2.5 gm/dL (3.2-5.2); Albumin/Globulin Ratio 1.1 (1.0-2.3); Alkaline Phosphatase 63 U/L (39-117); Bilirubin,Direct < 0.2 mg/dL (0.0-0.3); Bilirubin,Total < 0.2 mg/dL (0.0-1.0); Calcium 7.2 mg/dl (8.6-10.4); Carbon Dioxide 29 mmol/L (22-30); Chloride 100 mmol/L (96-108); Globulin 2.3 gm/dL (2.2-3.7); Glomerular Filtration Rate 115; Glucose 109 mg/dL (70-105); Lactate Dehydrogenase 260 U/L (94-250); Triglycerides 283 mg/dl (<150); Uric Acid 2.9 mg/dL (2.5-8.0)
[2019-12-17 07:45] LABS: Blood Urea Nitrogen 2 mg/dl (6-20)
--- NOTE | 2019-12-17 08:02 | XRay Report ---
HISTORY: Follow-up intestinal pseudoobstruction FINDINGS: There are couple loops of moderately dilated small bowel in the right mid abdomen which contain air-fluid levels. They measure up to 5 cm in diameter. These have increased in caliber since 12/16/19. Distal small bowel is decompressed. There is stool in nondistended colon. The stomach is decompressed. No free intra-abdominal air is present. IMPRESSION: increased dilatation of a couple segments of proximal jejunum in the right mid abdomen Interpreted and Authenticated by: Zay Juarez 12/17/19
[2019-12-17] MEDS: predniSONE 20 MG TABLET PO SCH (08:25)
[2019-12-17] MEDS: ERYTHROMYCIN BASE 250 MG TABLET PO SCH ×4 (08:25→20:04)
[2019-12-17] MEDS: MAGNESIUM OXIDE 400 MG TABLET PO SCH ×2 (08:25→20:02)
[2019-12-17] MEDS: metFORMIN 500 MG TABLET PO SCH (08:25)
[2019-12-17] MEDS: DULoxetine 30 MG CAPSULE PO SCH ×2 (08:25→20:02)
[2019-12-17] MEDS: LEVOTHYROXINE 125 MCG TABLET PO SCH (08:25)
[2019-12-17] MEDS: CALCIUM GLUCONATE 9.3 MEQ in DEXTROSE 5% IN WATER 50 ML IV SCH (10:31)
[2019-12-17] MEDS: CALCITRIOL 0.25 MCG CAPSULE PO SCH ×3 (11:45→20:02)
[2019-12-17] MEDS: INSULIN GLARGINE, HUMAN 1 UNIT/0.01 ML SQ SCH ×2 (11:45→22:57)
[2019-12-17] MEDS: HEPARIN 5,000 UNIT/ML VIAL SQ SCH ×2 (11:46→20:02)
[2019-12-17] MEDS: PROMETHAZINE 25 MG/ML VIAL IV PRN (13:03)
[2019-12-17] MEDS: MAGNESIUM SULFATE 4 GM/100 ML BAG IV SCH ×2 (13:35→15:25)
--- NOTE | 2019-12-17 19:46 | General Surgery Progress Note ---
Subjective Patient reports: feels better, pain is less, tolerating a regular diet, flatus, bowel movement, diarrhea, afebrile Narrative: Note initiated : 12/17/19 at 7:45 pm Service Date, if different from initiated Date: [] Patient: Dayanna Stephens a 59 y/o F admitted on 12/13/19 for n/v/abdominal pain. Chief Complaint: [Patient is doing well and her abdomen is back to baseline. Discussed potential for discharge tomorrow. She is tolerating diet and her stoma is functioning appropriately] Objective Temp Pulse Resp BP Pulse Ox 97.3 F 89 20 165/90 93 12/17/19 16:00 12/17/19 16:00 12/17/19 16:00 12/17/19 16:00 12/17/19 16:00 - Additional Data Intake & Output - Last 24 hours: Intake & Output 12/15/19 12/16/19 12/17/19 12/18/19 05:59 05:59 05:59 05:59 Intake Total 4100 4606 5100 872 Output Total 2170 2700 3865 1400 Balance 1930 1906 1235 -528 Weight 222 lb 8 oz 228 lb 8 oz 231 lb 8 oz - General physical appearance well developed, well nourished, no distress - Eyes PERRL, normal ocular movement - ENT normal pinna, normal nares, normal mucosa, no hearing loss, no congestion - Neck no masses, no bruits, trachea midline, no lymphadenopathy, no venous distension - Respiratory normal expansion, normal respiratory effort, clear to auscultation - Cardiovascular Cardiovascular exam: Present: normal rate and rhythm, RRR, +S1, +S2. Absent: JVD, tachycardia - Abdomen soft, non tender, bowel sounds (abdomen is soft and nontender; she does not have any distention and has good active bowel sounds) - Integumentary no rash, no growths, no abnormal pigmentation - Neurologic normal coordination, normal sensation - Musculoskeletal normal gait, normal posture - Psychiatric oriented to time, oriented to person, oriented to place, speech is normal, memory intact - Labs 12/18/19 05:50 12/18/19 05:50 Diabetes panel 12/17/19 Range/Units 05:50 Sodium 139 (133-145) mmol/L Potassium 3.4 (3.3-5.1) mmol/L Chloride 100 (96-108) mmol/L Carbon Dioxide 29 (22-30) mmol/L BUN 2 L (6-20) mg/dl Creatinine 0.4 L (0.6-1.1) mg/dl Glucose 109 H (70-105) mg/dL Calcium 7.2 L (8.6-10.4) mg/dl AST 7 (0-37) U/l ALT 10 (0-40) U/l Alkaline Phosphatase 63 (39-117) U/L Total Protein 4.8 L (5.9-8.4) gm/dL Albumin 2.5 L (3.2-5.2) gm/dL Triglycerides 283 H (<150) mg/dl Calcium panel 12/17/19 Range/Units 05:50 Calcium 7.2 L (8.6-10.4) mg/dl Phosphorus 3.0 (2.7-4.5) mg/dL Albumin 2.5 L (3.2-5.2) gm/dL Pituitary panel 12/17/19 Range/Units 05:50 Sodium 139 (133-145) mmol/L Potassium 3.4 (3.3-5.1) mmol/L Chloride 100 (96-108) mmol/L Carbon Dioxide 29 (22-30) mmol/L BUN 2 L (6-20) mg/dl Creatinine 0.4 L (0.6-1.1) mg/dl Glucose 109 H (70-105) mg/dL Calcium 7.2 L (8.6-10.4) mg/dl Adrenal panel 12/17/19 Range/Units 05:50 Sodium 139 (133-145) mmol/L Potassium 3.4 (3.3-5.1) mmol/L Chloride 100 (96-108) mmol/L Carbon Dioxide 29 (22-30) mmol/L BUN 2 L (6-20) mg/dl Creatinine 0.4 L (0.6-1.1) mg/dl Glucose 109 H (70-105) mg/dL Calcium 7.2 L (8.6-10.4) mg/dl Total Bilirubin < 0.2 (0.0-1.0) mg/dL AST 7 (0-37) U/l ALT 10 (0-40) U/l Alkaline Phosphatase 63 (39-117) U/L Total Protein 4.8 L (5.9-8.4) gm/dL Albumin 2.5 L (3.2-5.2) gm/dL Assessment and Plan (1) Chronic intestinal pseudo-obstruction Status: Chronic Assessment and plan: Erythromycin base 250 mg 4 times daily. MiraLAX with apple juice twice daily Check abdominal x-rays in the morning (2) Sinus tachycardia Status: Resolved (3) Myasthenia gravis Status: Chronic (4) Polyglandular autoimmune syndrome Status: Chronic - Time Spent With Patient Total time spent is greater than 50% in coordination of care (as documented) at patient's floor/unit and/or counseling patient:
[2019-12-17] MEDS ORDERED: MAGNESIUM SULFATE 32.48 MEQ in DEXTROSE 5% IN WATER 50 ML IV ONE (19:51)
[2019-12-18] MEDS: PYRIDOSTIGMINE BROMIDE 10 MG/2 ML ML IM SCH ×3 (00:23→14:02)
[2019-12-18] MEDS: 0.9 % SODIUM CHLORIDE 1,000 ML IV SCH ×2 (01:41→08:31)
[2019-12-18] MEDS: HYDROmorphone 2 MG/ML VIAL IV PRN ×3 (02:27→11:57)
[2019-12-18] MEDS: ACETAMINOPHEN 1,000 MG/100 ML BOTTLE IV SCH ×2 (02:28→08:56)
[2019-12-18] MEDS: 0.9 % SODIUM CHLORIDE 10 ML SYRINGE IV SCH (05:54)
[2019-12-18 07:29] LABS: Basophils # (Auto) 0.02 K/mcL (0.00-0.30); Basophils % (Auto) 0.4 % (0.0-2.0); Eosinophils # (Auto) 0.21 K/mcL (0.00-0.70); Eosinophils % (Auto) 4.1 % (0.0-7.0); Hematocrit 31.2 % (34.1-44.9); Hemoglobin 9.9 g/dL (11.2-15.7); Lymphocytes # (Auto) 1.86 K/mcL (1.50-4.80); Lymphocytes % (Auto) 36.2 % (15.5-49.0); Mean Cell Volume 89.9 fL (80.0-100.0); Mean Corpuscular HGB Conc 31.7 g/dL (31.0-36.0); Mean Platelet Volume 9.3 fL (7.4-10.4); Monocytes # (Auto) 0.48 K/mcL (0.10-0.90); Monocytes % (Auto) 9.3 % (1.0-12.0); Platelet Count 248 K/mcL (140-440); RBC 3.47 M/mcL (3.59-5.38); Red Cell Distribution Width 16.3 % (11.5-14.5); WBC 5.1 K/mcL (4.50-11.00)
[2019-12-18] MEDS: CALCITRIOL 0.25 MCG CAPSULE PO SCH (07:40)
[2019-12-18] MEDS: metFORMIN 500 MG TABLET PO SCH (07:40)
[2019-12-18] MEDS: LEVOTHYROXINE 125 MCG TABLET PO SCH (07:41)
[2019-12-18] MEDS: predniSONE 20 MG TABLET PO SCH (07:42)
[2019-12-18] MEDS: MAGNESIUM OXIDE 400 MG TABLET PO SCH (07:43)
[2019-12-18] MEDS: HEPARIN 5,000 UNIT/ML VIAL SQ SCH (07:43)
[2019-12-18] MEDS: INSULIN LISPRO 1 UNIT/0.01 ML UNIT SQ SCH ×2 (07:43→14:02)
[2019-12-18] MEDS: DULoxetine 30 MG CAPSULE PO SCH (07:43)
[2019-12-18 08:21] LABS: ALT/SGPT 9 U/l (0-40); AST/SGOT 10 U/l (0-37); Albumin 2.7 gm/dL (3.2-5.2); Albumin/Globulin Ratio 1.1 (1.0-2.3); Alkaline Phosphatase 67 U/L (39-117); Bilirubin,Direct < 0.2 mg/dL (0.0-0.3); Bilirubin,Total < 0.2 mg/dL (0.0-1.0); Calcium 7.4 mg/dl (8.6-10.4); Carbon Dioxide 33 mmol/L (22-30); Chloride 99 mmol/L (96-108); Globulin 2.5 gm/dL (2.2-3.7); Glucose 126 mg/dL (70-105); Lactate Dehydrogenase 284 U/L (94-250); Phosphorous 3.1 mg/dL (2.7-4.5); Triglycerides 204 mg/dl (<150); Uric Acid 3.1 mg/dL (2.5-8.0)
[2019-12-18 08:26] LABS: Blood Urea Nitrogen 4 mg/dl (6-20); Glomerular Filtration Rate 107
[2019-12-18] MEDS: CALCIUM GLUCONATE 9.3 MEQ in DEXTROSE 5% IN WATER 50 ML IV SCH (08:57)
[2019-12-18] MEDS: INSULIN GLARGINE, HUMAN 1 UNIT/0.01 ML SQ SCH (08:58)
[2019-12-18] MEDS: ERYTHROMYCIN BASE 250 MG TABLET PO SCH ×2 (08:58→11:58)
--- NOTE | 2019-12-18 09:49 | XRay Report ---
HISTORY: Follow-up intestinal pseudoobstruction FINDINGS: There are couple loops of mildly dilated small bowel in the right mid abdomen. These have diminished in caliber since yesterday. A couple air-fluid levels are present in the small intestine. No free intra-abdominal air is present. The right diaphragm is chronically elevated. Colon is nondistended. IMPRESSION: Improving small bowel distention Interpreted and Authenticated by: Zay Juarez 12/18/19
--- NOTE | 2019-12-18 12:42 | Discharge Summary ---
Providers - Providers Patient information: Note initiated : 12/18/19 at 12:38 pm Service Date, if different from initiated Date: [] Patient: Dayanna Stephens 59 y/o F admitted on 12/13/19 for n/v/abdominal pain. Chief Complaint: [] Date of admission: 12/12/19 Discharge date: 12/18/19 Attending physician: Bertha Currie Hospitalization Hospital Course: 51-year-old female with long-term history of chronic intestinal pseudoobstruction with multiple admissions over the past 3 years for this difficulty. Patient was discharged 10 days prior to reevaluation. She has a history of onset abdominal distention, abdominal pain, nausea and vomiting for the past 6 hours. She was seen in the emergency room with findings of dilated stomach, duodenum and small bowel with extension of the dilation to her stoma in the left lower quadrant. She was still putting out small amount of liquid stool. Patient was admitted and started on nasogastric decompression. She was continued on regonol and it was increased to 10 mg every 6 hours. Patient gradually improved and had more output through her stoma. X-rays revealed gradual reduction and small bowel distention and gastric distention. She was restarted on erythromycin base for pro motility activity and had a good prompt response. At this time. She is tolerating a regular diet and is having frequent bowel movements with large volume of gas output. She does have a single loop of small bowel in the midabdomen which is dilated but this has always been the case. Patient is felt to be stable enough for discharge home. Discharge diagnosis: chronic intestinal pseudoobstruction Secondary discharge diagnosis: Myasthenia gravis. Polyglandular autoimmune syndrome Reason for admission: abdominal pain, nausea and vomiting Pertinent studies/significant findings: CT abdomen and pelvis with contrast Complications: None Exam Temp Pulse Resp BP Pulse Ox 97.9 F 92 H 18 150/85 96 12/18/19 08:00 12/18/19 08:00 12/18/19 08:00 12/18/19 08:00 12/18/19 08:00 - General physical appearance well developed, well nourished, no distress, chronically ill, obese - Eyes PERRL, normal ocular movement - ENT normal pinna, normal nares, normal mucosa, no hearing loss, no congestion - Head Head exam IM: Present: atraumatic, normocephalic - Neck no masses, no bruits, trachea midline, no lymphadenopathy, no venous distension - Cardiovascular Cardiovascular exam IM: Present: normal rate and rhythm, RRR, +S1, +S2. Absent: JVD, tachycardia - Respiratory normal expansion, normal respiratory effort, clear to percussion, clear to auscultation - Abdomen Abdomen: Present: soft, non tender, bowel sounds Hernia: Present: none - Genitourinary Present: normal external genitalia - Integumentary Present: no rash, no growths, no abnormal pigmentation - Neurologic Present: normal coordination, normal sensation - Musculoskeletal Present: normal gait, normal posture - Psychiatric Present: oriented to time, oriented to person, oriented to place, speech is normal, memory intact Discharge Plan - Patient/Caregiver Discharge Instructions Activity: increase activity as tolerated Diet: Regular Diet, Low Fiber Prescriptions: Erythromycin Base [Tim-Tab] 250 mg PO QID #120 tablet.dr Transmission Status: Pending to [facility] - Follow up Plan Follow up with: Douglas Haque MD [Primary Care Provider] - Disposition: Home, Self-Care Prognosis: Good Rehab Potential: Good I certify that the patient requires SNF services.: No Overall status at discharge: patient is progressing back to baseline Pending Studies Resuscitation Status Full Code Diet Regular Diet Start SatDec 17 735 Calcitriol (Rocaltrol) 0.5 mcg PO TID [facility] Last Admin: 12/18/19 07:40 Dose: 0.5 mcg Documented by: Admin: 12/17/19 20:02 Dose: 0.5 mcg Documented by: Admin: 12/17/19 15:26 Dose: 0.5 mcg Documented by: Admin: 12/17/19 11:45 Dose: 0.5 mcg Documented by: Admin: 12/16/19 19:59 Dose: 0.5 mcg Documented by: Admin: 12/16/19 14:46 Dose: 0.5 mcg Documented by: Admin: 12/16/19 09:47 Dose: 0.5 mcg Documented by: Admin: 12/15/19 21:03 Dose: 0.5 mcg Documented by: Admin: 12/15/19 15:03 Dose: 0.5 mcg Documented by: REHAN Cyclobenzaprine HCl (Flexeril) 10 mg PO BIDP PRN PRN Reason: Spasms Last Admin: 12/16/19 02:12 Dose: 10 mg Documented by: GISSELLE Diagnostic Test (Pha) (Accu-Chek) 1 each FS ACHS [facility]; Protocol Last Admin: 12/18/19 11:59 Dose: 1 each Documented by: Admin: 12/18/19 07:42 Dose: 1 each Documented by: Admin: 12/17/19 22:49 Dose: 1 each Documented by: Admin: 12/17/19 17:33 Dose: 1 each Documented by: Admin: 12/17/19 11:46 Dose: 1 each Documented by: Admin: 12/17/19 07:51 Dose: 1 each Documented by: Admin: 12/17/19 00:05 Dose: 1 each Documented by: Admin: 12/16/19 20:13 Dose: 1 each Documented by: Admin: 12/16/19 17:21 Dose: 1 each Documented by: REHAN Duloxetine HCl (Cymbalta) 30 mg PO BID [facility] Last Admin: 12/18/19 07:43 Dose: 30 mg Documented by: Admin: 12/17/19 20:02 Dose: 30 mg Documented by: Admin: 12/17/19 08:25 Dose: 30 mg Documented by: Admin: 12/16/19 19:59 Dose: 30 mg Documented by: Admin: 12/16/19 10:00 Dose: 30 mg Documented by: Admin: 12/15/19 21:03 Dose: 30 mg Documented by: GISSELLE Erythromycin (Erythromycin) 250 mg PO QID [facility]; Protocol Last Admin: 12/18/19 11:58 Dose: 250 mg Documented by: Admin: 12/18/19 08:58 Dose: 250 mg Documented by: Admin: 12/17/19 20:04 Dose: 250 mg Documented by: Admin: 12/17/19 17:49 Dose: 250 mg Documented by: Admin: 12/17/19 15:25 Dose: 250 mg Documented by: Admin: 12/17/19 08:25 Dose: 250 mg Documented by: Admin: 12/16/19 19:58 Dose: 250 mg Documented by: Admin: 12/16/19 17:43 Dose: 250 mg Documented by: Admin: 12/16/19 13:22 Dose: 250 mg Documented by: Admin: 12/16/19 10:01 Dose: 250 mg Documented by: Admin: 12/15/19 21:03 Dose: 250 mg Documented by: GISSELLE Heparin Sodium (Porcine) (Heparin) 5,000 unit SQ Q12 [facility] Last Admin: 12/18/19 07:43 Dose: 5,000 unit Documented by: Admin: 12/17/19 20:02 Dose: 5,000 unit Documented by: Admin: 12/17/19 11:46 Dose: 5,000 unit Documented by: Admin: 12/16/19 19:59 Dose: 5,000 unit Documented by: Admin: 12/16/19 09:49 Dose: 5,000 unit Documented by: Admin: 12/15/19 21:03 Dose: 5,000 unit Documented by: Admin: 12/15/19 08:14 Dose: 5,000 unit Documented by: Admin: 12/14/19 20:39 Dose: 5,000 unit Documented by: Admin: 12/14/19 09:57 Dose: 5,000 unit Documented by: Admin: 12/13/19 21:15 Dose: 5,000 unit Documented by: Admin: 12/13/19 08:03 Dose: 5,000 unit Documented by: DIANE Hydromorphone HCl (Dilaudid) 1 mg IV Q2HP PRN; Protocol PRN Reason: Per Pain Protocol Last Admin: 12/18/19 11:57 Dose: 1 mg Documented by: Admin: 12/18/19 05:45 Dose: 1 mg Documented by: Admin: 12/18/19 02:27 Dose: 1 mg Documented by: Admin: 12/17/19 22:58 Dose: 1 mg Documented by: Admin: 12/17/19 20:01 Dose: 1 mg Documented by: Admin: 12/17/19 15:24 Dose: 1 mg Documented by: Admin: 12/17/19 11:44 Dose: 1 mg Documented by: Admin: 12/17/19 08:33 Dose: 1 mg Documented by: Admin: 12/17/19 05:49 Dose: 1 mg Documented by: Admin: 12/17/19 02:33 Dose: 1 mg Documented by: Admin: 12/16/19 22:55 Dose: 1 mg Documented by: Admin: 12/16/19 19:04 Dose: 1 mg Documented by: Admin: 12/16/19 16:28 Dose: 1 mg Documented by: Admin: 12/16/19 13:29 Dose: 1 mg Documented by: Admin: 12/16/19 11:22 Dose: 1 mg Documented by: Admin: 12/16/19 07:58 Dose: 1 mg Documented by: Admin: 12/16/19 03:28 Dose: 1 mg Documented by: Admin: 12/16/19 00:14 Dose: 1 mg Documented by: Admin: 12/15/19 19:39 Dose: 1 mg Documented by: Admin: 12/15/19 17:06 Dose: 1 mg Documented by: Admin: 12/15/19 15:05 Dose: 1 mg Documented by: Admin: 12/15/19 12:56 Dose: 1 mg Documented by: Admin: 12/15/19 10:50 Dose: 1 mg Documented by: Admin: 12/15/19 08:46 Dose: 1 mg Documented by: Admin: 12/15/19 05:17 Dose: 1 mg Documented by: Admin: 12/15/19 01:24 Dose: 1 mg Documented by: Admin: 12/14/19 23:33 Dose: 1 mg Documented by: Admin: 12/14/19 21:32 Dose: 1 mg Documented by: Admin: 12/14/19 19:32 Dose: 1 mg Documented by: Admin: 12/14/19 17:40 Dose: 1 mg Documented by: Admin: 12/14/19 14:37 Dose: 1 mg Documented by: Admin: 12/14/19 12:32 Dose: 1 mg Documented by: Admin: 12/14/19 10:35 Dose: 1 mg Documented by: Admin: 12/14/19 08:26 Dose: 1 mg Documented by: Admin: 12/14/19 05:54 Dose: 1 mg Documented by: Admin: 12/14/19 03:16 Dose: 1 mg Documented by: Admin: 12/14/19 00:00 Dose: 1 mg Documented by: Admin: 12/13/19 22:06 Dose: 1 mg Documented by: Admin: 12/13/19 19:47 Dose: 1 mg Documented by: Admin: 12/13/19 18:08 Dose: 1 mg Documented by: Admin: 12/13/19 15:51 Dose: 1 mg Documented by: Admin: 12/13/19 10:57 Dose: 1 mg Documented by: Admin: 12/13/19 08:02 Dose: 1 mg Documented by: Admin: 12/13/19 05:06 Dose: 1 mg Documented by: Admin: 12/13/19 02:17 Dose: 1 mg Documented by: GISSELLE Sodium Chloride (Sodium Chloride 0.9%) 1,000 mls @ 125 mls/hr IV .Q8H [facility] Admin: 12/18/19 08:31 Dose: Not Given Documented by: Admin: 12/18/19 01:41 Dose: Not Given Documented by: Infusion: 12/17/19 22:34 Dose: 0 mls/hr Documented by: Admin: 12/17/19 17:34 Dose: Not Given Documented by: Admin: 12/17/19 08:26 Dose: Not Given Documented by: Admin: 12/17/19 02:40 Dose: 125 mls/hr Documented by: Infusion: 12/17/19 01:35 Dose: 125 mls/hr Documented by: Admin: 12/16/19 20:48 Dose: Not Given Documented by: Admin: 12/16/19 17:35 Dose: 125 mls/hr Documented by: Infusion: 12/16/19 10:07 Dose: 125 mls/hr Documented by: Admin: 12/16/19 02:07 Dose: 125 mls/hr Documented by: Admin: 12/16/19 01:25 Dose: Not Given Documented by: Infusion: 12/15/19 19:23 Dose: 125 mls/hr Documented by: Admin: 12/15/19 11:23 Dose: 125 mls/hr Documented by: Infusion: 12/15/19 06:19 Dose: 125 mls/hr Documented by: Admin: 12/15/19 02:03 Dose: Not Given Documented by: Admin: 12/14/19 22:19 Dose: 125 mls/hr Documented by: Infusion: 12/14/19 21:46 Dose: 125 mls/hr Documented by: Admin: 12/14/19 20:17 Dose: Not Given Documented by: Admin: 12/14/19 13:46 Dose: 125 mls/hr Documented by: Infusion: 12/14/19 13:16 Dose: 125 mls/hr Documented by: Admin: 12/14/19 03:18 Dose: 125 mls/hr Documented by: Infusion: 12/14/19 03:18 Dose: 125 mls/hr Documented by: Admin: 12/13/19 19:46 Dose: 125 mls/hr Documented by: Infusion: 12/13/19 18:40 Dose: 125 mls/hr Documented by: Admin: 12/13/19 10:40 Dose: 125 mls/hr Documented by: Infusion: 12/13/19 10:39 Dose: 0 mls/hr Documented by: Admin: 12/13/19 01:35 Dose: 125 mls/hr Documented by: GISSELLE Calcium Gluconate 9.3 meq/ (Dextrose) 70 mls @ 70 mls/hr IV DAILY [facility] Last Admin: 12/18/19 08:57 Dose: 70 mls/hr Documented by: Infusion: 12/18/19 08:31 Dose: 0 mls/hr Documented by: Admin: 12/17/19 10:31 Dose: 70 mls/hr Documented by: Infusion: 12/16/19 11:01 Dose: 70 mls/hr Documented by: Admin: 12/16/19 10:01 Dose: 70 mls/hr Documented by: Infusion: 12/15/19 11:23 Dose: 70 mls/hr Documented by: Admin: 12/15/19 09:48 Dose: 70 mls/hr Documented by: Infusion: 12/14/19 14:26 Dose: 70 mls/hr Documented by: Admin: 12/14/19 09:57 Dose: 70 mls/hr Documented by: Infusion: 12/13/19 12:46 Dose: 0 mls/hr Documented by: Admin: 12/13/19 10:55 Dose: 70 mls/hr Documented by: DIANE Acetaminophen (Ofirmev) 1,000 mg in 100 mls @ 200 mls/hr IV Q6H [facility]; Protocol Last Infusion: 12/18/19 09:26 Dose: 0 mls/hr Documented by: Admin: 12/18/19 08:56 Dose: 200 mls/hr Documented by: Infusion: 12/18/19 02:59 Dose: 0 mls/hr Documented by: Admin: 12/18/19 02:28 Dose: 200 mls/hr Documented by: Infusion: 12/17/19 20:30 Dose: 0 mls/hr Documented by: Admin: 12/17/19 19:52 Dose: 200 mls/hr Documented by: Infusion: 12/17/19 15:53 Dose: 0 mls/hr Documented by: Admin: 12/17/19 15:23 Dose: 200 mls/hr Documented by: Infusion: 12/17/19 13:52 Dose: 0 mls/hr Documented by: Admin: 12/17/19 08:22 Dose: 200 mls/hr Documented by: Infusion: 12/17/19 03:00 Dose: 0 mls/hr Documented by: Admin: 12/17/19 02:23 Dose: 200 mls/hr Documented by: Infusion: 12/16/19 21:20 Dose: 0 mls/hr Documented by: Admin: 12/16/19 20:48 Dose: 200 mls/hr Documented by: Infusion: 12/16/19 15:18 Dose: 200 mls/hr Documented by: Admin: 12/16/19 14:48 Dose: 200 mls/hr Documented by: Infusion: 12/16/19 09:40 Dose: 200 mls/hr Documented by: Admin: 12/16/19 09:10 Dose: 200 mls/hr Documented by: Infusion: 12/16/19 02:39 Dose: 200 mls/hr Documented by: Admin: 12/16/19 02:09 Dose: 200 mls/hr Documented by: Infusion: 12/15/19 21:15 Dose: 0 mls/hr Documented by: Admin: 12/15/19 20:42 Dose: 200 mls/hr Documented by: Infusion: 12/15/19 14:48 Dose: 200 mls/hr Documented by: Admin: 12/15/19 14:18 Dose: 200 mls/hr Documented by: Infusion: 12/15/19 11:24 Dose: 200 mls/hr Documented by: Admin: 12/15/19 08:16 Dose: 200 mls/hr Documented by: Infusion: 12/15/19 02:26 Dose: 200 mls/hr Documented by: Admin: 12/15/19 01:56 Dose: 200 mls/hr Documented by: Infusion: 12/14/19 21:09 Dose: 200 mls/hr Documented by: Admin: 12/14/19 20:39 Dose: 200 mls/hr Documented by: Infusion: 12/14/19 14:23 Dose: 200 mls/hr Documented by: Admin: 12/14/19 13:46 Dose: 200 mls/hr Documented by: CAREY Insulin Glargine (Lantus) 5 unit SQ BID [facility] Last Admin: 12/18/19 08:58 Dose: 5 units Documented by: Admin: 12/17/19 22:57 Dose: 5 units Documented by: Admin: 12/17/19 11:45 Dose: 5 units Documented by: Admin: 12/16/19 20:17 Dose: 5 units Documented by: Admin: 12/16/19 09:52 Dose: 5 units Documented by: Admin: 12/15/19 21:14 Dose: 5 units Documented by: GISSELLE Insulin Human Lispro (Humalog) 0 unit SQ ACHS [facility]; Protocol Last Admin: 12/18/19 07:43 Dose: Not Given Documented by: Admin: 12/17/19 22:57 Dose: 4 unit Documented by: Admin: 12/17/19 18:20 Dose: 6 unit Documented by: Admin: 12/17/19 17:59 Dose: Not Given Documented by: Admin: 12/17/19 13:35 Dose: 2 unit Documented by: Admin: 12/17/19 07:51 Dose: Not Given Documented by: Admin: 12/17/19 00:12 Dose: 4 unit Documented by: Admin: 12/16/19 20:14 Dose: Not Given Documented by: Admin: 12/16/19 17:39 Dose: 6 unit Documented by: REHAN [facility] Admin: 12/18/19 07:41 Dose: 250 mcg Documented by: Admin: 12/17/19 08:25 Dose: 250 mcg Documented by: Admin: 12/16/19 07:44 Dose: 250 mcg Documented by: REHAN Magnesium Oxide (Magnesium Oxide) 400 mg PO BID [facility] Last Admin: 12/18/19 07:43 Dose: 400 mg Documented by: Admin: 12/17/19 20:02 Dose: 400 mg Documented by: Admin: 12/17/19 08:25 Dose: 400 mg Documented by: Admin: 12/16/19 19:59 Dose: 400 mg Documented by: Admin: 12/16/19 09:47 Dose: 400 mg Documented by: Admin: 12/15/19 21:03 Dose: 400 mg Documented by: GISSELLE Metformin HCl (Glucophage) 500 mg PO [facility] Last Admin: 12/18/19 07:40 Dose: 500 mg Documented by: Admin: 12/17/19 08:25 Dose: 500 mg Documented by: Admin: 12/16/19 07:44 Dose: 500 mg Documented by: REHAN Prednisone (Prednisone) 20 mg PO [facility] Last Admin: 12/18/19 07:42 Dose: 20 mg Documented by: Admin: 12/17/19 08:25 Dose: 20 mg Documented by: Admin: 12/16/19 07:44 Dose: 20 mg Documented by: REHAN Promethazine HCl (Phenergan) 12.5 mg IV Q4HP PRN; Protocol PRN Reason: Nausea/Vomiting Last Admin: 12/17/19 13:03 Dose: 12.5 mg Documented by: Admin: 12/14/19 03:24 Dose: 12.5 mg Documented by: CEASAR Pyridostigmine [place] (Regonol) 5 mg IM Q6H [facility] Last Admin: 12/18/19 05:54 Dose: 5 mg Documented by: Admin: 12/18/19 00:23 Dose: 5 mg Documented by: Admin: 12/17/19 17:52 Dose: Not Given Documented by: Admin: 12/17/19 15:25 Dose: 5 mg Documented by: Admin: 12/17/19 05:49 Dose: 5 mg Documented by: Admin: 12/16/19 23:51 Dose: 5 mg Documented by: Admin: 12/16/19 17:41 Dose: 5 mg Documented by: Admin: 12/16/19 11:38 Dose: 5 mg Documented by: Admin: 12/16/19 06:22 Dose: 5 mg Documented by: Admin: 12/16/19 00:35 Dose: 5 mg Documented by: Admin: 12/15/19 17:59 Dose: 5 mg Documented by: Admin: 12/15/19 12:21 Dose: 5 mg Documented by: Admin: 12/15/19 05:10 Dose: 5 mg Documented by: Admin: 12/14/19 23:34 Dose: 5 mg Documented by: Admin: 12/14/19 19:38 Dose: 5 mg Documented by: Admin: 12/14/19 13:45 Dose: 5 mg Documented by: Admin: 12/14/19 05:45 Dose: 5 mg Documented by: Admin: 12/13/19 23:42 Dose: 5 mg Documented by: Admin: 12/13/19 19:58 Dose: Not Given Documented by: Admin: 12/13/19 17:02 Dose: 5 mg Documented by: Admin: 12/13/19 10:56 Dose: 5 mg Documented by: Admin: 12/13/19 10:38 Dose: Not Given Documented by: Admin: 12/13/19 10:37 Dose: Not Given Documented by: DIANE Sodium Chloride (Saline Flush) 10 ml IV Q8 [facility] Last Admin: 12/18/19 05:54 Dose: 10 ml Documented by: Admin: 12/17/19 20:02 Dose: 10 ml Documented by: Admin: 12/17/19 15:25 Dose: Not Given Documented by: Admin: 12/17/19 05:50 Dose: Not Given Documented by: Admin: 12/16/19 21:32 Dose: Not Given Documented by: Admin: 12/16/19 15:00 Dose: Not Given Documented by: Admin: 12/16/19 06:43 Dose: Not Given Documented by: Admin: 12/15/19 22:08 Dose: Not Given Documented by: Admin: 12/15/19 16:17 Dose: Not Given Documented by: Admin: 12/15/19 04:46 Dose: Not Given Documented by: Admin: 12/14/19 21:55 Dose: Not Given Documented by: Admin: 12/14/19 14:24 Dose: Not Given Documented by: Admin: 12/14/19 06:08 Dose: Not Given Documented by: Admin: 12/13/19 22:06 Dose: Not Given Documented by: Admin: 12/13/19 17:07 Dose: 10 ml Documented by: Admin: 12/13/19 05:29 Dose: 10 ml Documented by: DIONICIO Shift Summary 12/18/19 06:58 Shift Summary by Erika Urena Pt is A&Ox4. VSS on RA. Up ad rainer to [facility]. Calls for assistance. Receiving scheduled Ofirmev & got Dilaudid 1 mg x4 (~Q3H) for shoulder pain. Pt has an ileostomy & is independent with those cares (+ flatus & ~175 out of the ileostomy this shift). Tolerating regular diet. HS accucheck was 174. Accessed port to left chest, SL (asked MD last night if he wanted fluids to continue running through the night as pt was already SL in prep for d/c - MD stated to leave her SL and just let her drink fluids). Will update with verbal report. Initialized on 12/18/19 06:58 - END OF NOTE
[2019-12-18] MEDS ORDERED: HEPARIN SODIUM,PORCINE/PF 500 UNIT/5 ML SYRINGE IV ONE (14:07)
--- NOTE | 2020-01-12 12:40 | Internal Medicine Consult Note ---
Medical - CN: [facility] - Data of Consult Consult date: 12/16/19 Requesting physician: Bertha Currie Primary Care Provider: Douglas Haque - Consult Narrative History of present illness: done 12/16/2019 Ms. Stephens is a 59 year old F with bowel obstruction. Awaiting full liquid diet. Nausea vomiting. No abdominal pain today. Oral medications restarted yesterday. Abdominal x-ray with distant several loops of borderline dilated small bowel in the midabdomen, slightly larger than yesterday. CC: Bertha Currie MD Medical - CN: [facility] Medical history: Medical History (Last Updated 10/31/19 @ 00:47 by Robb Goldberg DO) Chronic, continuous use of opioids (Chronic) Myasthenia gravis (Chronic) Obesity, Class II, BMI 35-39.9 (Chronic) LA (obstructive sleep apnea) (Chronic) Hypertension (Chronic) Diabetes mellitus type 2, uncontrolled (Chronic) Sinus tachycardia (Resolved) Chronic intestinal pseudo-obstruction (Chronic) Abdominal pain (Chronic) Recurrent intestinal obstruction (Chronic) Chronic use of steroids (Chronic) Abnormal liver enzymes (Chronic) Hypothyroidism (Chronic) Sarcoidosis (Chronic) Polyglandular autoimmune syndrome (Chronic) Recurrent abdominal pain (Chronic) Abdominal pain (Resolved) Abdominal wound dehiscence (Resolved) Achalasia and cardiospasm (Resolved) Acute respiratory insufficiency (Resolved) Adverse reaction to drug (Resolved) Anaphylaxis (Resolved) Bowel obstruction (Resolved) 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) Constipation due to neurogenic bowel (Resolved) Constipation due to pain medication therapy (Resolved) Dehydration (Resolved) Dehydration (Resolved) Encounter for care related to Port-a-Cath (Resolved) Fecal impaction (Resolved) Foot sprain (Resolved) Hypercalcemia (Resolved) Hypocalcemia (Resolved) Hyponatremia (Resolved) Ileus (Resolved) Infiltrate of lung present on imaging of chest (Resolved) Intractable vomiting (Resolved) Lactic acid acidosis (Resolved) Nausea (Resolved) Nausea & vomiting (Resolved) Nausea & vomiting (Resolved) Nausea and vomiting (Resolved) Obstruction of descending colon (Resolved) Pancreatitis (Resolved) Parastomal hernia with obstruction, without gangrene (Resolved) Partial intestinal obstruction, unspecified as to cause (Resolved) Pneumonia (Resolved) Primary chronic pseudo-obstruction of large intestine (Resolved) Pseudoobstruction of colon (Resolved) Pyelonephritis (Resolved) Sepsis (Resolved) Sepsis associated hypotension (Resolved) Sepsis with acute hypoxic respiratory failure (Resolved) Severe sepsis (Resolved) Sigmoid volvulus (Resolved) Small bowel obstruction (Resolved) Small bowel obstruction (Resolved) Small bowel obstruction (Resolved) Small bowel obstruction (Resolved) Small bowel obstruction (Resolved) Small bowel obstruction due to adhesions (Resolved) Small bowel obstruction due to postoperative adhesions (Resolved) Small bowel obstruction, partial (Resolved) Supraventricular tachycardia (Resolved) UTI (urinary tract infection) (Resolved) UTI (urinary tract infection) (Resolved) Volvulus of sigmoid colon (Resolved) Past Surgical History (Last Reviewed 10/19/19 @ 12:47 by Bertha Currie MD) History of exploratory laparotomy (Acute) History of exploratory laparotomy (Acute) History of exploratory laparotomy (Acute) History of exploratory laparotomy (Acute) S/P ileostomy (Resolved) Social History (Last Updated 10/19/19 @ 12:52 by Bertha Currie MD) No Social History Section defined Family History (Last Reviewed 10/19/19 @ 12:47 by Bertha Currie MD) Father CAD (coronary artery disease) Mother CAD (coronary artery disease) Grandfather CVA (cerebral vascular accident) Grandmother CVA (cerebral vascular accident) Medical - CN: Meds Home Medications Medication Instructions Recorded Confirmed Type predniSONE [Prednisone] 20 mg PO [facility] #4 tab 05/18/16 12/24/19 Rx DULoxetine [Cymbalta] 30 mg PO BID 11/30/16 12/24/19 History Levothyroxine [Synthroid] 250 mcg PO QAMAC 08/20/17 12/24/19 History metFORMIN HCL [Metformin HCl] 500 mg PO DAILY #30 tab 10/17/18 12/24/19 Rx Calcitriol [Rocaltrol] 0.5 mcg PO TID 02/11/19 12/24/19 History Promethazine [Phenergan] 25 mg PO Q6HP PRN #60 tab 02/13/19 12/24/19 Rx Insulin Glargine, Human [Lantus] 5 unit SQ BID 09/30/19 12/24/19 History Acetaminophen [Tylenol] 650 mg PO Q6HP PRN tab 10/05/19 12/24/19 Rx traMADol [Ultram] 50 mg PO Q6HP PRN #40 tab 10/05/19 12/24/19 Rx Accu-Chek 1 each FS ACHS strip 12/03/19 12/24/19 Rx Benzocaine [Cetacaine] 1 spray TOPICAL QIDP PRN bottle 12/03/19 12/24/19 Rx Cyclobenzaprine [Flexeril] 10 mg PO BIDP PRN 12/13/19 12/24/19 History Magnesium Oxide [Magnesium] 250 mg PO BID 12/13/19 12/24/19 History Metoprolol Succinate 25 mg PO QDAY PRN 12/13/19 12/24/19 History Ondansetron [Zofran ODT] 4 mg SL Q4HP PRN 12/24/19 12/24/19 History Promethazine [Phenergan] 25 mg ME Q6HP PRN 12/24/19 12/24/19 History erythromycin 250 mg tablet,delayed 250 mg PO QID #120 tablet. 01/04/20 Rx release pyridostigmine bromide 5 mg/mL 10 mg IM Q6H #240 ml 01/04/20 Rx injection solution Allergies Allergy/AdvReac Type Severity Reaction Status Date / Time Sulfa (Sulfonamide Allergy Severe Anaphylaxis Verified 12/24/19 00:39 Antibiotics) adhesive tape AdvReac Mild Blister Verified 12/24/19 00:39 metoclopramide [From Reglan] AdvReac Mild Anxiety Verified 12/24/19 00:39 steri strips AdvReac Mild Blister Uncoded 12/02/19 06:48 Medical - CN: Exam - Constitutional Vitals: Temp Pulse Resp BP Pulse Ox 98.3 F 107 H 18 157/89 94 12/18/19 14:31 12/18/19 14:31 12/18/19 14:31 12/18/19 14:31 12/18/19 14:31 Exam: General: Alert, Awake, No acute Distress Eyes/N/T: EOMI, Head/Neck: neck supple, CV: mildly tachy but regular, No murmurs, Pulm: Clear b/l, no wheezing/rhonchi/rales Abd: soft, nontender, +BS x4 Ext: no clubbing/cyanosis/edema Neuro: Alert, no focal deficits, moves all extremities, Skin: warm/dry Medical - CN: Result - Labs CBC & Chem 7: 12/18/19 05:50 12/18/19 05:50 Medical - CN: A/P - Narrative A/P Narrative: (1) Sinus tachycardia Status: Acute Assessment and plan: Improved after restarting home medications yesterday (2) Chronic intestinal pseudo-obstruction Status: Chronic Assessment and plan: Erythromycin base 250 mg 4 times daily. MiraLAX with apple juice twice daily f/u AXR with mild increase in dilation go small bowel, cont full liquid today and hopefully advance diet in AM Check abdominal x-rays in the morning Current Visit: No (3) Myasthenia gravis Status: Chronic Current Visit: No (4) Polyglandular autoimmune syndrome Status: Chronic Current Visit: No
== END 2019-12-18 14:30 | disposition home or self-care (01) | DRG 392 ==
LOC: ED 20:46 → MEDSUR 12-13 01:15
PROVIDERS: ADMIT Family Medicine Adult Medicine; ATTEND Family Medicine Adult Medicine

== ENCOUNTER 2020-01-18 20:57 | Inpatient (IN) ==
--- NOTE | 2020-01-18 21:21 | Emergency Department Note ---
Nausea/Vomiting/Diarrhea HPI - General Chief complaint: Nausea/Vomiting/Diarrhea Stated complaint: vomiting, dehydration Time Seen by Provider: 01/18/20 21:03 Source: patient Mode of arrival: wheelchair Limitations: no limitations - History of Present Illness HPI Narrative: Jenny indicates that she has been unable to eat now since (today is Saturday). She is vomited 10-11 times today as well as yesterday while pain is in the left side going from lower and all the way to the upper quadrant. She has tried rectal promethazine for 4 days but continues to remain in pain with nausea and vomiting and now bloating and feeling hard in her lower abdomen. She has been home 3 weeks since her last hospital stay. She has had only a little bit of gas in her ostomy bag. She is passed normal liquid stools but some pasty yesterday. Her urine has been darker of recent. She has not been able to take any pain medicines and does not normally take pain medicines except for Tylenol and Aleve but stopped the Aleve about a week ago due to being told that it could be irritating to her stomach. REVIEW OF SYSTEMS: Denies fever, chills but has had sweats No sore throat. A little runny nose she attributes to the vomiting No chest pain Mild cough associated only with the vomiting No hematochezia or melena No dysuria Chronic low back pain between her hips posteriorly she says which is her normal usual. Some lightheadedness and dizziness she attributes to her regimen all which she takes for her myasthenia gravis. Has some chronic depression for which she takes Cymbalta. Has been on metoprolol in the past but not currently as it seems her blood pressure was okay. - Related Data Home Medications Medication Instructions Recorded Confirmed DULoxetine [Cymbalta] 30 mg PO BID 11/30/16 01/18/20 Levothyroxine [Synthroid] 250 mcg PO QAMAC 08/20/17 01/18/20 Calcitriol [Rocaltrol] 0.5 mcg PO TID 02/11/19 01/18/20 Insulin Glargine, Human [Lantus] 5 unit SQ BID 09/30/19 01/18/20 Cyclobenzaprine [Flexeril] 10 mg PO BIDP PRN 03/01/20 04/06/20 Magnesium Oxide [Magnesium] 500 mg PO BID 12/13/19 01/18/20 Ondansetron [Zofran ODT] 4 mg SL Q4HP PRN 12/24/19 01/18/20 Promethazine [Phenergan] 25 mg ID Q6HP PRN 12/24/19 01/18/20 Previous Rx's Medication Instructions Recorded predniSONE [Prednisone] 20 mg PO QAC #4 tab 05/18/16 metFORMIN HCL [Metformin HCl] 500 mg PO DAILY #30 tab 10/17/18 Promethazine [Phenergan] 25 mg PO Q6HP PRN #60 tab 02/13/19 Acetaminophen [Tylenol] 650 mg PO Q6HP PRN tab 10/05/19 Accu-Chek 1 each FS ACHS strip 12/03/19 erythromycin 250 mg tablet,delayed 250 mg PO QID #120 tablet. 01/04/20 release pyridostigmine bromide 5 mg/mL 10 mg IM Q6H #240 ml 01/04/20 injection solution Allergies Allergy/AdvReac Type Severity Reaction Status Date / Time Sulfa (Sulfonamide Allergy Severe Anaphylaxis Verified 01/18/20 21:00 Antibiotics) adhesive tape AdvReac Mild Blister Verified 01/18/20 21:00 metoclopramide [From Reglan] AdvReac Mild Anxiety Verified 01/18/20 21:00 steri strips AdvReac Mild Blister Uncoded 12/02/19 06:48 Past Medical History - Past Medical History Medical history: Reports: COPD, hypertension, hypothyroidism, other (Myasthenia gravis). 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 Denies: marijuana Physical Exam Limitations: no limitations General appearance: alert, grimacing (occasional), in no apparent distress, nontoxic, other (subjectively reports pain, bloating, getting firmer, in lower abdomen.) Head: atraumatic, normocephalic Eye: Present: EOMI Neck: Present: trachea midline. Absent: lymphadenopathy, thyromegaly Chest: Present: symmetric chest wall rise Respiratory: Present: normal lung sounds bilaterally. Absent: respiratory distress, wheezes, stridor, accessory muscle use, prolonged expiratory phase Cardiovascular: Present: regular rate, normal rhythm. Absent: systolic murmur, diastolic murmur Abdominal: Present: soft, tenderness (mild-moderate diffusely but mostly lower 1/2.). Absent: distention, guarding, rebound, rigidity, organomegaly, mass Extremities: Absent: pedal edema, pretibial edema, calf tenderness, cyanosis, clubbing Back: Present: tenderness (Subjectively across the lower sacroiliac area.). Absent: CVA tenderness (R), CVA tenderness (L), spinous process tenderness Neurological: Present: alert, oriented X3 Psychiatric: Present: normal affect, normal mood Skin: Present: warm, dry Course Vital Signs Temperature 98.8 F 01/18/20 20:59 Pulse Rate 132 H 01/18/20 20:59 Respiratory Rate 20 01/18/20 20:59 Blood Pressure 171/116 01/18/20 20:59 Pulse Oximetry (%) 96 01/18/20 20:59 Temperature 97.7 F 01/19/20 08:00 Pulse Rate 106 H 01/19/20 08:00 Respiratory Rate 20 01/19/20 08:00 Blood Pressure 135/79 01/19/20 08:00 Pulse Oximetry (%) 93 01/19/20 08:00 Nausea/Vomiting/Diarrhea - [facility] Narrative Medical decision making narrative: 9:09 PM - interviewed and examined. Will give Toradol and acetaminophen IV for pain control to start with while doing x-ray abdomen and labs. 10:15 PM - labs are pending. X-rays demonstrate markedly dilated multiple loops of bowel throughout 3 quadrants that are significantly worse than these past months of plain films. I discussed this with Dr. Mcdowell, general surgeon, who agrees with going ahead and having patient be admitted to the hospital with IV fluids, pain control, labs in the morning, nasogastric tube to low intermittent suction, etc. Transition orders will be created. - Lab Data Result diagrams: 01/18/20 21:52 01/18/20 21:52 Lab Results 01/18/20 01/18/20 01/18/20 Range/Units 21:52 21:52 21:52 WBC 13.5 H (4.50-11.00) K/mcL RBC 5.11 (3.59-5.38) M/mcL Hgb 14.5 (11.2-15.7) g/dL Hct 43.3 (34.1-44.9) % MCV 84.7 (80.0-100.0) fL MCH 28.4 (26.0-34.0) pg MCHC 33.5 (31.0-36.0) g/dL RDW 14.1 (11.5-14.5) % Plt Count 336 (140-440) K/mcL MPV 9.6 (7.4-10.4) fL Gran % 75.9 (38.0-78.0) % Lymph % (Auto) 17.4 (15.5-49.0) % [place] % (Auto) 6.1 (1.0-12.0) % Eos % (Auto) 0.4 (0.0-7.0) % Baso % (Auto) 0.2 (0.0-2.0) % Gran # 10.22 H (1.80-8.00) K/mcL Lymph # (Auto) 2.35 (1.50-4.80) K/mcL [place] # (Auto) 0.82 (0.10-0.90) K/mcL Eos # (Auto) 0.06 (0.00-0.70) K/mcL Baso # (Auto) 0.03 (0.00-0.30) K/mcL VBG Lactic Acid 2.1 H (0.5-2.0) mmol/L Sodium 130 L (133-145) mmol/L Potassium 3.6 (3.3-5.1) mmol/L Chloride 86 L (96-108) mmol/L Carbon Dioxide 22 (22-30) mmol/L Anion Gap 22.0 H (8-16) BUN 11 (6-20) mg/dl Creatinine 0.7 (0.6-1.1) mg/dl GFR Calculation 96 Glucose 204 H (70-105) mg/dL Calcium 7.5 L (8.6-10.4) mg/dl Total Bilirubin 0.3 (0.0-1.0) mg/dL AST 77 H (0-37) U/l ALT 106 H (0-40) U/l Alkaline Phosphatase 133 H (39-117) U/L Total Protein 7.2 (5.9-8.4) gm/dL Albumin 3.7 (3.2-5.2) gm/dL Globulin 3.5 (2.2-3.7) gm/dL Albumin/Globulin Ratio 1.1 (1.0-2.3) Disposition Pt seen by JOB SUPERINTENDENT/PA only: No Clinical Impression: Small bowel obstruction, partial, Recurrent intestinal obstruction, Hypocalcemia, Hyponatremia, Elevated LFTs Summary: Labs returned with some electrolyte abnormalities. Patient being admitted and will be monitored and followed up. Disposition: Xfer As Inpt ([facility]) Condition: Fair
[2020-01-18] MEDS ORDERED: 0.9 % SODIUM CHLORIDE 1,000 ML IV ONE (21:29)
[2020-01-18] MEDS ORDERED: ONDANSETRON 4 MG/2 ML VIAL IV ONE (21:30)
[2020-01-18] MEDS ORDERED: ACETAMINOPHEN 1,000 MG/100 ML BOTTLE IV ONE (21:30)
[2020-01-18] MEDS ORDERED: KETOROLAC 60 MG/2 ML VIAL IM ONE (21:30)
[2020-01-18] MEDS ORDERED: HYDROmorphone 2 MG/ML VIAL IV PRN (22:21)
[2020-01-18] MEDS ORDERED: NALOXONE HCL 0.4 MG/ML VIAL IV PRN (22:21)
[2020-01-18 22:39] LABS: Basophils # (Auto) 0.03 K/mcL (0.00-0.30); Basophils % (Auto) 0.2 % (0.0-2.0); Eosinophils # (Auto) 0.06 K/mcL (0.00-0.70); Eosinophils % (Auto) 0.4 % (0.0-7.0); Granulocytes % (Auto) 75.9 % (38.0-78.0); Hematocrit 43.3 % (34.1-44.9); Hemoglobin 14.5 g/dL (11.2-15.7); Lymphocytes # (Auto) 2.35 K/mcL (1.50-4.80); Lymphocytes % (Auto) 17.4 % (15.5-49.0); Mean Cell Volume 84.7 fL (80.0-100.0); Mean Corpuscular HGB Conc 33.5 g/dL (31.0-36.0); Mean Platelet Volume 9.6 fL (7.4-10.4); Monocytes # (Auto) 0.82 K/mcL (0.10-0.90); Monocytes % (Auto) 6.1 % (1.0-12.0); Platelet Count 336 K/mcL (140-440); RBC 5.11 M/mcL (3.59-5.38); Red Cell Distribution Width 14.1 % (11.5-14.5); WBC 13.5 K/mcL (4.50-11.00)
[2020-01-18] MEDS ORDERED: LIDOCAINE 2% PF 5 ML VIAL IJ STA (22:45)
[2020-01-18 23:07] LABS: ALT/SGPT 106 U/l (0-40); AST/SGOT 77 U/l (0-37); Albumin 3.7 gm/dL (3.2-5.2); Albumin/Globulin Ratio 1.1 (1.0-2.3); Alkaline Phosphatase 133 U/L (39-117); Bilirubin,Total 0.3 mg/dL (0.0-1.0); Blood Urea Nitrogen 11 mg/dl (6-20); Calcium 7.5 mg/dl (8.6-10.4); Carbon Dioxide 22 mmol/L (22-30); Chloride 86 mmol/L (96-108); Globulin 3.5 gm/dL (2.2-3.7); Glomerular Filtration Rate 96; Glucose 204 mg/dL (70-105)
[2020-01-19] MEDS: DEXTROSE 5%-LR 1,000 ML IV SCH ×4 (00:20→20:49)
[2020-01-19] MEDS: HYDROmorphone 2 MG/ML VIAL IV PRN ×9 (00:30→23:23)
[2020-01-19] MEDS ORDERED: HYDROmorphone 2 MG/ML VIAL ONE ×3 (00:34→05:49)
--- NOTE | 2020-01-19 08:15 | XRay Report ---
CLINICAL INFORMATION: abdom pain History small bowel obstruction COMPARISON: 12/27/2019. FINDINGS: The stomach and multiple loops of small bowel within the midabdomen are now moderately dilated with scattered air-fluid levels compatible with high-grade recurrent distal small bowel obstruction. No free air or soft tissue mass. IMPRESSION: High-grade recurrent distal small bowel obstruction Interpreted and Authenticated by: All Lundberg 01/19/20
--- NOTE | 2020-01-19 08:16 | XRay Report ---
CLINICAL INFORMATION: ng placement COMPARISON: 01/18/2020 FINDINGS: NG tube overlies the gastric body -, a is mildly decompressed. Multiple loops of moderately dilated small bowel air-fluid levels compatible with recurrent distal small bowel obstruction noted. No free air IMPRESSION: NG tube in satisfactory position. High-grade recurrent distal small bowel bowel obstruction pattern unchanged Interpreted and Authenticated by: All Lundberg 01/19/20
--- NOTE | 2020-01-19 08:38 | General Surg History&Physical ---
History of Present Illness Patient information: Note initiated : 01/19/20 at 8:35 am Service Date, if different from initiated Date: [] Patient: Dayanna Guo a 59 y/o F admitted on 01/18/20 for Vomiting, Dehydration. Chief Complaint: [] Chief complaint: Nausea, & vomiting for 2-3 days HPI: Ms. Guo is a 59 year old F with multiple admits for this same problem. She has multiple medical problems, see PMHx and ROS. She has c/o nausea and vomiting for the past 2 days and has decreased ileostomy output. She has had multiple prior surgeries and multiple prior admits for pseudo-obstructions and "narcotic Bowel." Past History Past medical history: Medical History (Last Updated 10/31/19 @ 00:47 by Robb Goldberg DO) Chronic, continuous use of opioids (Chronic) Myasthenia gravis (Chronic) Obesity, Class II, BMI 35-39.9 (Chronic) LA (obstructive sleep apnea) (Chronic) Hypertension (Chronic) Diabetes mellitus type 2, uncontrolled (Chronic) Sinus tachycardia (Resolved) Chronic intestinal pseudo-obstruction (Chronic) Abdominal pain (Chronic) Recurrent intestinal obstruction (Chronic) Chronic use of steroids (Chronic) Abnormal liver enzymes (Chronic) Hypothyroidism (Chronic) Sarcoidosis (Chronic) Polyglandular autoimmune syndrome (Chronic) Recurrent abdominal pain (Chronic) Abdominal pain (Resolved) Abdominal wound dehiscence (Resolved) Achalasia and cardiospasm (Resolved) Acute respiratory insufficiency (Resolved) Adverse reaction to drug (Resolved) Anaphylaxis (Resolved) Bowel obstruction (Resolved) 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) Constipation due to neurogenic bowel (Resolved) Constipation due to pain medication therapy (Resolved) Dehydration (Resolved) Dehydration (Resolved) Encounter for care related to Port-a-Cath (Resolved) Fecal impaction (Resolved) Foot sprain (Resolved) Hypercalcemia (Resolved) Hypocalcemia (Resolved) Hyponatremia (Resolved) Ileus (Resolved) Infiltrate of lung present on imaging of chest (Resolved) Intractable vomiting (Resolved) Lactic acid acidosis (Resolved) Nausea (Resolved) Nausea & vomiting (Resolved) Nausea & vomiting (Resolved) Nausea and vomiting (Resolved) Obstruction of descending colon (Resolved) Pancreatitis (Resolved) Parastomal hernia with obstruction, without gangrene (Resolved) Partial intestinal obstruction, unspecified as to cause (Resolved) Pneumonia (Resolved) Primary chronic pseudo-obstruction of large intestine (Resolved) Pseudoobstruction of colon (Resolved) Pyelonephritis (Resolved) Sepsis (Resolved) Sepsis associated hypotension (Resolved) Sepsis with acute hypoxic respiratory failure (Resolved) Severe sepsis (Resolved) Sigmoid volvulus (Resolved) Small bowel obstruction (Resolved) Small bowel obstruction (Resolved) Small bowel obstruction (Resolved) Small bowel obstruction (Resolved) Small bowel obstruction (Resolved) Small bowel obstruction due to adhesions (Resolved) Small bowel obstruction due to postoperative adhesions (Resolved) Small bowel obstruction, partial (Resolved) Supraventricular tachycardia (Resolved) UTI (urinary tract infection) (Resolved) UTI (urinary tract infection) (Resolved) Volvulus of sigmoid colon (Resolved) Past Surgical History (Last Reviewed 10/19/19 @ 12:47 by Bertha Currie MD) History of exploratory laparotomy (Acute) History of exploratory laparotomy (Acute) History of exploratory laparotomy (Acute) History of exploratory laparotomy (Acute) S/P ileostomy (Resolved) Family History (Last Reviewed 10/19/19 @ 12:47 by Bertha Currie MD) Father CAD (coronary artery disease) Mother CAD (coronary artery disease) Grandfather CVA (cerebral vascular accident) Grandmother CVA (cerebral vascular accident) Medical history: Reports: COPD, hypertension, hypothyroidism, other (Myasthenia gravis). 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 Denies: marijuana Past surgical history: Multiple Abdominal explorations for SBO, colonic inertia, etc, She has an ileostomy in the RLQ Past family history: Positive for CAD Past social history: on disability Medications and Allergies Home Medications Medication Instructions Recorded Confirmed Type predniSONE [Prednisone] 20 mg PO [facility] #4 tab 05/18/16 01/18/20 Rx DULoxetine [Cymbalta] 30 mg PO BID 11/30/16 01/18/20 History Levothyroxine [Synthroid] 250 mcg PO QAMAC 08/20/17 01/18/20 History metFORMIN HCL [Metformin HCl] 500 mg PO DAILY #30 tab 10/17/18 01/18/20 Rx Calcitriol [Rocaltrol] 0.5 mcg PO TID 02/11/19 01/18/20 History Promethazine [Phenergan] 25 mg PO Q6HP PRN #60 tab 02/13/19 01/18/20 Rx Insulin Glargine, Human [Lantus] 5 unit SQ BID 09/30/19 01/18/20 History Acetaminophen [Tylenol] 650 mg PO Q6HP PRN tab 10/05/19 01/18/20 Rx Accu-Chek 1 each FS ACHS strip 12/03/19 01/18/20 Rx Cyclobenzaprine [Flexeril] 10 mg PO BIDP PRN 12/13/19 01/18/20 History Magnesium Oxide [Magnesium] 500 mg PO BID 12/13/19 01/18/20 History Ondansetron [Zofran ODT] 4 mg SL Q4HP PRN 12/24/19 01/18/20 History Promethazine [Phenergan] 25 mg CO Q6HP PRN 12/24/19 01/18/20 History erythromycin 250 mg tablet,delayed 250 mg PO QID #120 tablet. 01/04/2001/17 Rx release pyridostigmine bromide 5 mg/mL 10 mg IM Q6H #240 ml 01/04/20 01/18/20 Rx injection solution Allergies Allergy/AdvReac Type Severity Reaction Status Date / Time Sulfa (Sulfonamide Allergy Severe Anaphylaxis Verified 01/18/20 21:00 Antibiotics) adhesive tape AdvReac Mild Blister Verified 01/18/20 21:00 metoclopramide [From Reglan] AdvReac Mild Anxiety Verified 01/18/20 21:00 steri strips AdvReac Mild Blister Uncoded 12/02/19 06:48 Exam Temp Pulse Resp BP Pulse Ox 97.8 F 109 H 14 136/81 95 01/19/20 03:06 01/19/20 03:06 01/19/20 03:06 01/19/20 03:06 01/19/20 03:06 - General physical appearance well developed, no distress, obese. negative: moderate pain, severe pain - Eyes PERRL, normal ocular movement - ENT normal pinna, normal nares, no hearing loss, no congestion, other (NG in place) - Head Head exam IM: Present: normal inspection, normocephalic - Cardiovascular Cardiovascular exam IM: Present: normal rate and rhythm. Absent: diastolic murmur, JVD - Respiratory normal expansion, normal respiratory effort, clear to percussion, clear to auscultation - Abdomen Abdomen: Present: soft, non tender, surgical scars. Absent: masses, rebound, distended Hernia: Present: none. Absent: inguinal - Neurologic Present: normal coordination, normal sensation - Musculoskeletal Present: normal gait, normal posture - Psychiatric Present: oriented to time, oriented to person, oriented to place, speech is normal Results - Results Chest x-ray: image reviewed (multiple loops of SB dilated, stomach decompressed after NG placed) Abdominal x-ray: image reviewed Assessment and Plan (1) Small bowel obstruction, partial will follow X-rays and possible start clear liquids later today Status: Acute Comment: Appears to be resolving already. (2) Recurrent intestinal obstruction will resume home meds when able to eat Status: Chronic Comment: many recurrences; many surgical interventions (3) Chronic intestinal pseudo-obstruction try to decrease narcotic usage and follow Status: Chronic
[2020-01-19] MEDS ORDERED: PROMETHAZINE 25 MG SUPP.RECT PR PRN (09:27)
--- NOTE | 2020-01-19 09:33 | Internal Medicine Consult Note ---
Medical - CN: HPI - Data of Consult Requesting physician: Gus Mcdowell Primary Care Provider: Douglas Haque - Consult Narrative Reason for consult: Management of medical issues History of present illness: Ms. Guo is a 59 year old F morbidly obese F with a complex medical history of parathyroidism , chronic hypocalcemia, polyglandular syndrome, sarcoidosis, myasthenia gravis and recurrent bowel obstruction/abdominal surgeries with colostomy. She was admitted with symptoms of nausea and vomiting/abdominal discomfort over the last couple of days consistent with prior episodes of bowel obstruction. Patient was admitted by surgery and NG decompression initiated. Hospital service was consulted in light of multiple prior medical issues which include history of myasthenia on prednisone/DM type II/anxiety/hypothyroidism. Her prior medical condition has been fairly well managed as outpatient. At the time of evaluation patient is alert. She denies significant nausea or abdominal discomfort. Gas passing through ostomy. She denies fever, headache, chest pain, shortness of breath. She follows up with Dr. Douglas Haque primary care physician. She also follows up with neurology Dr. Yeboah. Review of systems A 10 point review system was performed and is negative except for ones cussed above CC: Gus Mcdowell MD Medical - CN: PM Medical history: Diabetes mellitus type 2, uncontrolled (Chronic) Obesity, Class II, BMI 35-39.9 (Chronic) Hypertension (Chronic) Recurrent intestinal obstruction (Chronic) Chronic use of steroids (Chronic) Abnormal liver enzymes (Chronic) Hypothyroidism (Chronic) Myasthenia gravis (Chronic) Polyglandular autoimmune syndrome (Chronic) Sarcoidosis (Chronic) Hypocalcemia (Chronic) Achalasia and cardiospasm (Chronic) Constipation due to pain medication therapy (Chronic) Supraventricular tachycardia (Resolved) Encounter for care related to Port-a-Cath (Chronic) Abdominal pain (Resolved) Abdominal wound dehiscence (Resolved) Adverse reaction to drug (Resolved) Anaphylaxis (Resolved) Bowel obstruction (Resolved) 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) Constipation due to neurogenic bowel (Resolved) Fecal impaction (Resolved) Foot sprain (Resolved) Ileus (Resolved) Infiltrate of lung present on imaging of chest (Resolved) Nausea (Resolved) Nausea & vomiting (Resolved) Obstruction of descending colon (Resolved) Pancreatitis (Resolved) Parastomal hernia with obstruction, without gangrene (Resolved) Partial intestinal obstruction, unspecified as to cause (Resolved) Pneumonia (Resolved) Primary chronic pseudo-obstruction of large intestine (Resolved) Pseudoobstruction of colon (Resolved) Pyelonephritis (Resolved) Sepsis associated hypotension (Resolved) Severe sepsis (Resolved) Sigmoid volvulus (Resolved) Small bowel obstruction (Resolved) Small bowel obstruction (Resolved) Small bowel obstruction (Resolved) Small bowel obstruction due to adhesions (Resolved) Small bowel obstruction due to postoperative adhesions (Resolved) Small bowel obstruction, partial (Resolved) UTI (urinary tract infection) (Resolved) Volvulus of sigmoid colon (Resolved) Past surgical history: Sigmoid colectomy with colostomy. Lotrel laparotomy with adhesiolysis 5. Exploratory laparotomy with repair of parastomal hernia 2. Exploratory laparotomy with repair of lower abdominal wall dehiscence. Parra's cyst to plication small bowel. Total colectomy with ileostomy. Laparoscopic lysis of adhesions and parastomal hernia repair. Exploratory laparotomy with small bowel resection adhesion lysis and removal of mesh graft Past social history: Former tobacco use. Prior history of marijuana use Denies alcohol use. Physically disabled Medical - CN: Meds Home Medications Medication Instructions Recorded Confirmed Type predniSONE [Prednisone] 20 mg PO [facility] #4 tab 05/18/16 01/18/20 Rx DULoxetine [Cymbalta] 30 mg PO BID 11/30/16 01/18/20 History Levothyroxine [Synthroid] 250 mcg PO QAMAC 08/20/17 01/18/20 History metFORMIN HCL [Metformin HCl] 500 mg PO DAILY #30 tab 10/17/18 01/18/20 Rx Calcitriol [Rocaltrol] 0.5 mcg PO TID 02/11/19 01/18/20 History Promethazine [Phenergan] 25 mg PO Q6HP PRN #60 tab 02/13/19 01/18/20 Rx Insulin Glargine, Human [Lantus] 5 unit SQ BID 09/30/19 01/18/20 History Acetaminophen [Tylenol] 650 mg PO Q6HP PRN tab 10/05/19 01/18/20 Rx Accu-Chek 1 each FS ACHS strip 12/03/19 01/18/20 Rx Cyclobenzaprine [Flexeril] 10 mg PO BIDP PRN 12/13/19 01/18/20 History Magnesium Oxide [Magnesium] 500 mg PO BID 12/13/19 01/18/20 History Ondansetron [Zofran ODT] 4 mg SL Q4HP PRN 12/24/19 01/18/20 History Promethazine [Phenergan] 25 mg MO Q6HP PRN 12/24/19 01/18/20 History erythromycin 250 mg tablet,delayed 250 mg PO QID #120 tablet. 01/04/20 01/18/20 Rx release pyridostigmine bromide 5 mg/mL 10 mg IM Q6H #240 ml 01/04/20 01/18/20 Rx injection solution Allergies Allergy/AdvReac Type Severity Reaction Status Date / Time Sulfa (Sulfonamide Allergy Severe Anaphylaxis Verified 01/18/20 21:00 Antibiotics) adhesive tape AdvReac Mild Blister Verified 01/18/20 21:00 metoclopramide [From Reglan] AdvReac Mild Anxiety Verified 01/18/20 21:00 steri strips AdvReac Mild Blister Uncoded 12/02/19 06:48 Medical - CN: Exam - Constitutional Vitals: Temp Pulse Resp BP Pulse Ox 97.7 F 106 H 20 135/79 93 01/19/20 08:00 01/19/20 08:00 01/19/20 08:00 01/19/20 08:00 01/19/20 08:00 General appearance: morbidly obese Exam: NG tube decompression Alert oriented Head normocephalic Oral cavity dry No ear nose discharge No subconjunctival pallor Neck no lymphadenopathy Regular rhythm Diminished breath sounds bases Abdomen pendulous distended/ostomy bag minimal output Lower extremity no lymphedema cyanosis clubbing Skin no suspicious lesion Alert cooperative Neuro nonfocal Medical - CN: Result - Labs CBC & Chem 7: 01/18/20 21:52 01/18/20 21:52 Labs: Short CBC 01/18/20 Range/Units 21:52 WBC 13.5 H (4.50-11.00) K/mcL Hgb 14.5 (11.2-15.7) g/dL Hct 43.3 (34.1-44.9) % Plt Count 336 (140-440) K/mcL BMP 01/18/20 21:52 Sodium 130 L Potassium 3.6 Chloride 86 L Carbon Dioxide 22 BUN 11 Creatinine 0.7 Glucose 204 H Calcium 7.5 L Liver Function 01/18/20 Range/Units 21:52 Total Bilirubin 0.3 (0.0-1.0) mg/dL AST 77 H (0-37) U/l ALT 106 H (0-40) U/l Alkaline Phosphatase 133 H (39-117) U/L Albumin 3.7 (3.2-5.2) gm/dL Medical - CN: A/P (1) Small bowel obstruction, partial Problem details: Appears to be resolving already. Status: Acute Assessment and plan: * Bowel obstruction managed by surgery Hospitalist consult * DM type II continue basal prandial insulin/metformin/CC diet once bowel obstruction resolves * History of chronic pain on cyclobenzaprine * Anxiety disorder continue duloxetine * History of panhypopituitarism start oral thyroxine * History of myasthenia gravis continue pyridostigmine/prednisone * Morbid obesity BMI over 40 -continue frequent turning/nutrition support/decubitus precautions * Full code * Prophylaxis Plan * Restart prior home medications * Diet advancement per surgery
--- NOTE | 2020-01-19 09:36 | XRay Report ---
CLINICAL INFORMATION: follow up SBO COMPARISON: None. FINDINGS: NG tube tip in stable satisfactory position of the gastric body. The stomach and small bowel most likely decrease in caliber following NG decompression as they remain mildly dilated. Small amounts of gas seen within the most distal small bowel. No free air IMPRESSION: Improving distal small bowel obstruction pattern following NG tube decompression Interpreted and Authenticated by: All Lundberg 01/19/20
[2020-01-19] MEDS: ACETAMINOPHEN 325 MG TABLET PO PRN ×2 (11:06→23:40)
[2020-01-19] MEDS: PYRIDOSTIGMINE BROMIDE 10 MG/2 ML ML IM SCH ×3 (13:21→23:30)
[2020-01-19] MEDS: PROMETHAZINE 25 MG TABLET PO PRN ×2 (14:20→23:40)
[2020-01-19] MEDS: CALCITRIOL 0.25 MCG CAPSULE PO SCH ×2 (16:07→21:05)
[2020-01-19] MEDS ORDERED: DEXTROSE 50% 50 ML VIAL IV PRN (17:05)
[2020-01-19] MEDS ORDERED: DEXTROSE 31 GM ORAL.SUSP PO PRN (17:05)
[2020-01-19] MEDS: INSULIN LISPRO 1 UNIT/0.01 ML UNIT SQ SCH ×2 (17:18→20:59)
[2020-01-19] MEDS: CYCLOBENZAPRINE 10 MG TABLET PO PRN (18:02)
[2020-01-19] MEDS ORDERED: PIPERACILLIN SODIUM/TAZOBACTAM 3.375 GM in DEXTROSE 5% IN WATER 50 ML IV SCH (19:30)
[2020-01-19] MEDS: INSULIN GLARGINE, HUMAN 1 UNIT/0.01 ML SQ SCH (20:50)
[2020-01-19] MEDS: DULoxetine 30 MG CAPSULE PO SCH (20:54)
[2020-01-19] MEDS: MAGNESIUM OXIDE 400 MG TABLET PO SCH (20:54)
[2020-01-20] MEDS: HYDROmorphone 2 MG/ML VIAL IV PRN ×9 (03:37→23:26)
[2020-01-20] MEDS: DEXTROSE 5%-LR 1,000 ML IV SCH ×2 (03:40→11:24)
[2020-01-20] MEDS: CYCLOBENZAPRINE 10 MG TABLET PO PRN ×2 (03:51→12:00)
[2020-01-20] MEDS: ACETAMINOPHEN 325 MG TABLET PO PRN ×2 (05:34→13:58)
[2020-01-20] MEDS: PYRIDOSTIGMINE BROMIDE 10 MG/2 ML ML IM SCH ×4 (05:35→23:26)
[2020-01-20] MEDS: INSULIN LISPRO 1 UNIT/0.01 ML UNIT SQ SCH ×4 (07:41→20:57)
--- NOTE | 2020-01-20 08:45 | General Surgery Progress Note ---
Subjective Patient reports: no new complaints, feels better, flatus, bowel movement Narrative: Note initiated : 01/20/20 at 8:43 am Service Date, if different from initiated Date: [] Patient: Dayanna Guo 59 y/o F admitted on 01/18/20 for Vomiting, Dehydration. Chief Complaint: [] Objective Temp Pulse Resp BP Pulse Ox 98.3 F 120 H 22 110/68 90 01/20/20 08:00 01/20/20 08:00 01/20/20 08:00 01/20/20 08:00 01/20/20 08:00 - Additional Data Intake & Output - Last 24 hours: Intake & Output 01/18/20 01/19/20 01/20/20 01/21/20 05:59 05:59 05:59 05:59 Intake Total 1100 6310 Output Total 1080 2300 Balance 20 4010 Weight 209 lb 8 oz 214 lb 8 oz - General physical appearance well developed, well nourished, obese - Respiratory normal expansion, normal respiratory effort, clear to percussion, clear to auscultation - Cardiovascular Cardiovascular exam: Present: normal rate and rhythm - Abdomen soft, non tender, bowel sounds (ileostomy output improving ) - Labs 01/18/20 21:52 01/18/20 21:52 Assessment and Plan (1) Small bowel obstruction, partial Status: Resolved Assessment and plan: better will start regular diet Current Visit: Yes (2) Recurrent intestinal obstruction Problem details: many recurrences; many surgical interventions Status: Chronic Assessment and plan: no changes, will restart all her home medications Current Visit: Yes (3) Chronic intestinal pseudo-obstruction Status: Chronic Current Visit: No - Time Spent With Patient Total time spent is greater than 50% in coordination of care (as documented) at patient's floor/unit and/or counseling patient: 15 - 24 minutes
[2020-01-20] MEDS ORDERED: CALCIUM GLUCONATE 9.3 MEQ in DEXTROSE 5% IN WATER 50 ML IV ONE (09:00)
[2020-01-20] MEDS: CALCITRIOL 0.25 MCG CAPSULE PO SCH ×3 (09:13→20:47)
[2020-01-20] MEDS: metFORMIN 500 MG TABLET PO SCH (09:13)
[2020-01-20] MEDS: predniSONE 20 MG TABLET PO SCH (09:13)
[2020-01-20] MEDS: MAGNESIUM OXIDE 400 MG TABLET PO SCH ×2 (09:13→20:47)
[2020-01-20] MEDS: DULoxetine 30 MG CAPSULE PO SCH ×2 (09:13→20:47)
[2020-01-20] MEDS: LEVOTHYROXINE 125 MCG TABLET PO SCH (09:13)
[2020-01-20] MEDS: INSULIN GLARGINE, HUMAN 1 UNIT/0.01 ML SQ SCH ×2 (09:14→20:50)
[2020-01-20] MEDS: ERYTHROMYCIN BASE 250 MG TABLET PO SCH ×4 (10:14→21:24)
--- NOTE | 2020-01-20 10:42 | Internal Med Progress Note ---
Medical - PN: Subj Patient information: Note initiated : 01/20/20 at 10:39 am Service Date, if different from initiated Date: [] Patient: Dayanna Guo a 59 y/o F admitted on 01/18/20 for Vomiting, Dehydration. Chief Complaint: [] Interval history: Ms. Guo is a 59 year old F morbidly obese F with a complex medical history of parathyroidism , chronic hypocalcemia, polyglandular syndrome, sarcoidosis, myasthenia gravis and recurrent bowel obstruction/abdominal surgeries with colostomy. She was admitted with symptoms of nausea and vomiting/abdominal discomfort over the last couple of days consistent with prior episodes of bowel obstruction. Patient was admitted by surgery and NG decompression initiated. Hospital service was consulted in light of multiple prior medical issues which include history of myasthenia on prednisone/DM type II/anxiety/hypothyroidism. Her prior medical condition has been fairly well managed as outpatient. At the time of evaluation patient is alert. She denies significant nausea or abdominal discomfort. Gas passing through ostomy. She denies fever, headache, chest pain, shortness of breath. She follows up with Dr. Douglas Haque primary care physician. She also follows up with neurology Dr. Yeboah. 01/19-patient doing well. No new events. No concerns per staff. Tolerating diet and advanced per recommendation of surgery. Blood sugars uncontrolled. At the discontinued. Pre-existing well condition stable. Restart oral erythromycin today. 2 g calcium replacement - Constitutional Vitals: Vital Signs Temp Pulse Resp BP Pulse Ox 98.3 F 120 H 22 110/68 90 01/20/20 08:00 01/20/20 08:00 01/20/20 08:00 01/20/20 08:00 01/20/20 08:00 Period Temp Pulse Resp BP Sys/Archuleta Pulse Ox Last 24 Hr 97.6 F-98.6 F 108-122 16-22 106-135/59-80 90-95 Intake and Output 01/19/20 01/20/20 01/20/20 21:59 05:59 13:59 Intake Total 2160 2150 600 Output Total 1600 350 Balance 560 1800 600 Weight 214 lb 8 oz Intake & Output: Intake & Output 01/19/20 01/20/20 01/20/20 21:59 05:59 13:59 Intake Total 2160 2150 600 Output Total 1600 350 Balance 560 1800 600 Weight 214 lb 8 oz Intake: IV 1000 1000 Dextrose 5%-Lactated Ringers 1, 1000 1000 000 ml @ 150 mls/hr IV .Q6H40M [facility] Rx#:[id number] Oral 1160 1150 600 Output: Gastric Drainage 600 Left Nare 600 Void Amount 950 350 Stool 50 Other: Meal Dinner Breakfast Percent of Meal Consumed 100% 100% Feeding Ability Independent Independent Urine Appearance Clear Clear Clear Urine Color Bright Yellow Bright Yellow Bright Yellow Urine Odor Normal Normal Normal Stool Color Jaren Colored Brown Stool Consistency Soft Soft General appearance: no acute distress Exam: Alert Nonlabored breathing Resting comfortably in bed No lymphedema nondistended nontender abdomen Medical - PN: Obj Da - Labs CBC & Chem 7: 01/18/20 21:52 01/18/20 21:52 Labs: Abnormal Lab Results 01/18/20 01/18/20 01/18/20 21:52 21:52 21:52 WBC 13.5 H Gran # 10.22 H VBG Lactic Acid 2.1 H Sodium 130 L Chloride 86 L Anion Gap 22.0 H Glucose 204 H Calcium 7.5 L AST 77 H ALT 106 H Alkaline Phosphatase 133 H Meds: Medications Acetaminophen (Tylenol) 650 mg PO Q6HP PRN; Protocol PRN Reason: PAIN/FEVER > 101 Last Admin: 01/20/20 05:34 Dose: 650 mg Documented by: Calcitriol (Rocaltrol) 0.5 mcg PO TID [facility] Last Admin: 01/20/20 09:13 Dose: 0.5 mcg Documented by: Cyclobenzaprine HCl (Flexeril) 10 mg PO BIDP PRN PRN Reason: Spasms Last Admin: 01/20/20 03:51 Dose: 10 mg Documented by: Dextrose (Dextrose 50%) 0 ml IV UD PRN PRN Reason: Hypoglycemia Diagnostic Test (Pha) (Accu-Chek) 1 each FS ACHS [facility]; Protocol Last Admin: 01/20/20 07:37 Dose: 1 each Documented by: Duloxetine HCl (Cymbalta) 30 mg PO BID [facility] Last Admin: 01/20/20 09:13 Dose: 30 mg Documented by: Erythromycin (Erythromycin) 250 mg PO QID [facility] Last Admin: 01/20/20 10:14 Dose: 250 mg Documented by: Glucose (Insta-Glucose) 15 gm PO PRN PRN PRN Reason: Hypoglycemia Hydromorphone HCl (Dilaudid) 1 mg IV Q2HP PRN; Protocol PRN Reason: Per Pain Protocol Last Admin: 01/20/20 10:13 Dose: 1 mg Documented by: Dextrose/Lactated Ringer's (Dextrose 5%-Lactated Ringers) 1,000 mls @ 150 mls/hr IV .Q6H40M [facility] Last Admin: 01/20/20 03:40 Dose: 150 mls/hr Documented by: Insulin Glargine (Lantus) 5 unit SQ BID [facility] Last Admin: 01/20/20 09:14 Dose: 5 units Documented by: Insulin Human Lispro (Humalog) 0 unit SQ [facility]; Protocol Last Admin: 01/20/20 07:41 Dose: Not Given Documented by: Levothyroxine Sodium (Synthroid) 250 mcg PO [facility] Last Admin: 01/20/20 09:13 Dose: 250 mcg Documented by: Magnesium Oxide (Magnesium Oxide) 400 mg PO BID [facility] Last Admin: 01/20/20 09:13 Dose: 400 mg Documented by: Metformin HCl (Glucophage) 500 mg PO [facility] Last Admin: 01/20/20 09:13 Dose: 500 mg Documented by: Naloxone HCl (Narcan) 0.1 mg IV Q2MIN PRN PRN Reason: Opiate Reversal Ondansetron HCl (Zofran) 4 mg IV Q4HP PRN PRN Reason: Nausea And Vomiting Ondansetron HCl (Zofran Odt) 4 mg SL Q4HP PRN PRN Reason: Nausea Prednisone (Prednisone) 20 mg PO [facility] Last Admin: 01/20/20 09:13 Dose: 20 mg Documented by: Promethazine HCl (Phenergan) 25 mg IV Q6HP PRN PRN Reason: Nausea And Vomiting Promethazine HCl (Phenergan) 25 mg [place] Q6HP PRN PRN Reason: nausea vomitting Promethazine HCl (Phenergan) 25 mg PO Q6HP PRN PRN Reason: Nausea Last Admin: 01/19/20 23:40 Dose: 25 mg Documented by: Pyridostigmine Dalton (Regonol) 10 mg IM Q6H [facility] Last Admin: 01/20/20 05:35 Dose: 10 mg Documented by: Medical - PN: A/P - Time Spent With Patient Total time spent is greater than 50% in coordination of care (as documented) at patient's floor/unit and/or counseling patient: 25 - 35 minutes (1) Small bowel obstruction, partial Status: Resolved Assessment and plan: * Bowel obstruction -clinically resolved. Continue management per surgery Hospitalist consult * Got hypomotility-restart erythromycin * hypocalcemia secondary to hypoparathyroidism. IV calcium * DM type II well controlled on basal prandial insulin/metformin/CC diet * History of chronic pain stable on cyclobenzaprine * Anxiety disorder continue duloxetine * History of panhypopituitarism continue oral thyroxine * History of myasthenia gravis continue pyridostigmine/prednisone * Morbid obesity BMI over 40 -continue frequent turning/nutrition support/decubitus precautions * Full code * Prophylaxis Plan * Continue home medications * Calcium infusion * Diet advancement per surgery Current Visit: Yes Medical - PN: Qual - Stroke Symptom Onset Unknown: No - VTE Deep Vein Thrombosis/Pulmonary Embolism Present on Admission: No
[2020-01-20 11:47] LABS: ALT/SGPT 61 U/l (0-40); AST/SGOT 34 U/l (0-37); Alkaline Phosphatase 80 U/L (39-117); Bilirubin,Direct < 0.2 mg/dL (0.0-0.3); Bilirubin,Total 0.2 mg/dL (0.0-1.0); Carbon Dioxide 27 mmol/L (22-30); Glucose 200 mg/dL (70-105); Lactate Dehydrogenase 269 U/L (94-250); Phosphorous 4.5 mg/dL (2.7-4.5); Triglycerides 202 mg/dl (<150); Uric Acid 4.6 mg/dL (2.5-8.0)
[2020-01-20 11:48] LABS: Albumin/Globulin Ratio 1.3 (1.0-2.3); Blood Urea Nitrogen 3 mg/dl (6-20); Chloride 92 mmol/L (96-108); Globulin 2.3 gm/dL (2.2-3.7); Glomerular Filtration Rate 107
[2020-01-20 11:52] LABS: Hematocrit 34.1 % (34.1-44.9); Hemoglobin 10.7 g/dL (11.2-15.7); Mean Corpuscular HGB Conc 31.4 g/dL (31.0-36.0); Mean Platelet Volume 9.5 fL (7.4-10.4); Platelet Count 261 K/mcL (140-440); RBC 3.83 M/mcL (3.59-5.38); Red Cell Distribution Width 13.9 % (11.5-14.5); WBC 7.2 K/mcL (4.50-11.00)
[2020-01-20 11:53] LABS: Eosinophils % (Manual) 3 % (0-7); Lymphocytes % 32 % (15-49); Monocytes % (Manual) 12 % (1-12); Platelet Estimate NORMAL (NORMAL); RBC Morphology NORMAL (NORMAL); Segmented Neutrophils % 53 % (38-78)
[2020-01-20] MEDS: ACETAMINOPHEN W/CODEINE #3 1 TABLET PO PRN ×2 (17:37→21:24)
[2020-01-20] MEDS: ONDANSETRON 4 MG/2 ML VIAL IV PRN (23:45)
[2020-01-21] MEDS: HYDROmorphone 2 MG/ML VIAL IV PRN ×3 (03:31→17:18)
[2020-01-21] MEDS: ACETAMINOPHEN W/CODEINE #3 1 TABLET PO PRN ×4 (03:32→21:52)
[2020-01-21] MEDS: PYRIDOSTIGMINE BROMIDE 10 MG/2 ML ML IM SCH ×3 (06:21→17:10)
[2020-01-21] MEDS: ONDANSETRON 4 MG/2 ML VIAL IV PRN ×2 (07:55→21:58)
[2020-01-21] MEDS: INSULIN LISPRO 1 UNIT/0.01 ML UNIT SQ SCH ×4 (08:11→21:43)
--- NOTE | 2020-01-21 08:32 | General Surgery Progress Note ---
Subjective Patient reports: other (C/O increased nausea and decreased ileostomy output) Narrative: Note initiated : 01/21/20 at 8:30 am Service Date, if different from initiated Date: [] Patient: Daynana Guo a 59 y/o F admitted on 01/18/20 for Vomiting, Dehydration. Chief Complaint: [] Objective Temp Pulse Resp BP Pulse Ox 98.2 F 116 H 16 146/75 90 01/21/20 03:52 01/21/20 03:52 01/21/20 03:52 01/21/20 03:52 01/21/20 03:52 - Additional Data Intake & Output - Last 24 hours: Intake & Output 01/19/20 01/20/20 01/21/20 01/22/20 05:59 05:59 05:59 05:59 Intake Total 1100 6310 2610 Output Total 1080 2300 1800 Balance 20 4010 810 Weight 209 lb 8 oz 214 lb 8 oz 218 lb - General physical appearance well developed, well nourished, obese - Respiratory normal expansion, normal respiratory effort, clear to percussion, clear to auscultation - Cardiovascular Cardiovascular exam: Present: normal rate and rhythm - Abdomen soft, non tender, surgical scars - Labs 01/20/20 11:00 01/20/20 11:00 Diabetes panel 01/20/20 Range/Units 11:00 Sodium 131 L (133-145) mmol/L Potassium 3.8 (3.3-5.1) mmol/L Chloride 92 L (96-108) mmol/L Carbon Dioxide 27 (22-30) mmol/L BUN 3 L (6-20) mg/dl Creatinine 0.5 L (0.6-1.1) mg/dl Glucose 200 H (70-105) mg/dL Calcium 8.0 L (8.6-10.4) mg/dl AST 34 (0-37) U/l ALT 61 H (0-40) U/l Alkaline Phosphatase 80 (39-117) U/L Total Protein 5.3 L (5.9-8.4) gm/dL Albumin 3.0 L (3.2-5.2) gm/dL Triglycerides 202 H (<150) mg/dl Calcium panel 01/20/20 Range/Units 11:00 Calcium 8.0 L (8.6-10.4) mg/dl Phosphorus 4.5 (2.7-4.5) mg/dL Albumin 3.0 L (3.2-5.2) gm/dL Pituitary panel 01/20/20 Range/Units 11:00 Sodium 131 L (133-145) mmol/L Potassium 3.8 (3.3-5.1) mmol/L Chloride 92 L (96-108) mmol/L Carbon Dioxide 27 (22-30) mmol/L BUN 3 L (6-20) mg/dl Creatinine 0.5 L (0.6-1.1) mg/dl Glucose 200 H (70-105) mg/dL Calcium 8.0 L (8.6-10.4) mg/dl Adrenal panel 01/20/20 Range/Units 11:00 Sodium 131 L (133-145) mmol/L Potassium 3.8 (3.3-5.1) mmol/L Chloride 92 L (96-108) mmol/L Carbon Dioxide 27 (22-30) mmol/L BUN 3 L (6-20) mg/dl Creatinine 0.5 L (0.6-1.1) mg/dl Glucose 200 H (70-105) mg/dL Calcium 8.0 L (8.6-10.4) mg/dl Total Bilirubin 0.2 (0.0-1.0) mg/dL AST 34 (0-37) U/l ALT 61 H (0-40) U/l Alkaline Phosphatase 80 (39-117) U/L Total Protein 5.3 L (5.9-8.4) gm/dL Albumin 3.0 L (3.2-5.2) gm/dL Assessment and Plan (1) Small bowel obstruction, partial Status: Resolved Assessment and plan: increased Nausea this AM with decreased output thru Ileostomy will recheck x- rays Current Visit: Yes (2) Recurrent intestinal obstruction Problem details: many recurrences; many surgical interventions Status: Chronic Assessment and plan: no changes, will restart all her home medications Current Visit: Yes (3) Chronic intestinal pseudo-obstruction Status: Chronic Current Visit: No - Time Spent With Patient Total time spent is greater than 50% in coordination of care (as documented) at patient's floor/unit and/or counseling patient:
[2020-01-21] MEDS: LEVOTHYROXINE 125 MCG TABLET PO SCH (09:40)
[2020-01-21] MEDS: CALCITRIOL 0.25 MCG CAPSULE PO SCH ×3 (09:40→21:52)
[2020-01-21] MEDS: metFORMIN 500 MG TABLET PO SCH (09:40)
[2020-01-21] MEDS: ERYTHROMYCIN BASE 250 MG TABLET PO SCH ×4 (09:40→21:51)
[2020-01-21] MEDS: MAGNESIUM OXIDE 400 MG TABLET PO SCH ×2 (09:41→21:51)
[2020-01-21] MEDS: INSULIN GLARGINE, HUMAN 1 UNIT/0.01 ML SQ SCH ×2 (09:41→21:51)
[2020-01-21] MEDS: DULoxetine 30 MG CAPSULE PO SCH ×2 (09:41→21:51)
[2020-01-21] MEDS: predniSONE 20 MG TABLET PO SCH (09:41)
--- NOTE | 2020-01-21 11:01 | XRay Report ---
CLINICAL INFORMATION: HX of SBO; nausea COMPARISON: 01/19/2020 FINDINGS: NG tube now. Stomach, and loops of of small bowel are now moderately dilated with air-fluid levels and distal small bowel decompression. No free air IMPRESSION: Recurrent high-grade distal small bowel obstruction Interpreted and Authenticated by: All Lundberg 01/21/20
--- NOTE | 2020-01-21 16:19 | Internal Med Progress Note ---
Medical - PN: Subj Patient information: Note initiated : 01/21/20 at 4:18 pm Service Date, if different from initiated Date: [] Patient: Dayanna Guo a 59 y/o F admitted on 01/18/20 for Vomiting, Dehydration. Chief Complaint: [] Interval history: Ms. Guo is a 59 year old F morbidly obese F with a complex medical history of parathyroidism , chronic hypocalcemia, polyglandular syndrome, sarcoidosis, myasthenia gravis and recurrent bowel obstruction/abdominal surgeries with colostomy. She was admitted with symptoms of nausea and vomiting/abdominal discomfort over the last couple of days consistent with prior episodes of bowel obstruction. Patient was admitted by surgery and NG decompression initiated. Hospital service was consulted in light of multiple prior medical issues which include history of myasthenia on prednisone/DM type II/anxiety/hypothyroidism. Her prior medical condition has been fairly well managed as outpatient. At the time of evaluation patient is alert. She denies significant nausea or abdominal discomfort. Gas passing through ostomy. She denies fever, headache, chest pain, shortness of breath. She follows up with Dr. Douglas Haque primary care physician. She also follows up with neurology Dr. Yeboah. 01/19-patient doing well. No new events. No concerns per staff. Tolerating diet and advanced per recommendation of surgery. Blood sugars uncontrolled. At the discontinued. Pre-existing well condition stable. Restart oral erythromycin today. 2 g calcium replacement 01/20-worsening symptoms with recurrent high-grade distal small bowel obstruction on imaging. Surgery on board. Currently on clears. If n.p.o. will convert home meds into IVs. - Constitutional Vitals: Vital Signs Temp Pulse Resp BP Pulse Ox 97.9 F 117 H 16 125/79 93 01/21/20 12:00 01/21/20 12:00 01/21/20 12:00 01/21/20 12:00 01/21/20 12:00 Period Temp Pulse Resp BP Sys/Archuleta Pulse Ox Last 24 Hr 97.9 F-98.6 F 94-117 14-16 120-150/70-89 90-93 Intake and Output 01/21/20 01/21/20 01/21/20 05:59 13:59 21:59 Intake Total 200 120 Output Total 850 600 350 Balance -650 -600 -230 Weight 218 lb Patient Weight 01/22/20 05:59 Weight 218 lb Intake & Output: Intake & Output 01/21/20 01/21/20 01/21/20 05:59 13:59 21:59 Intake Total 200 120 Output Total 850 600 350 Balance -650 -600 -230 Weight 218 lb Intake: Oral 200 120 Output: Gastric Drainage 600 Left Nare 600 Void Amount 850 350 Other: Meal Nourishment/Supplement Percent of Meal Consumed 50% Feeding Ability Independent Urine Appearance Clear Clear Clear Urine Color Bright Yellow Bright Yellow Dark Yellow Urine Odor Normal Strong Stool Color Brown Stool Consistency Soft Medical - PN: Obj Da - Labs CBC & Chem 7: 01/20/20 11:00 01/20/20 11:00 Labs: Abnormal Lab Results 01/20/20 01/20/20 01/18/20 11:00 11:00 21:52 WBC Hgb 10.7 L Gran # VBG Lactic Acid 2.1 H Sodium 131 L Chloride 92 L Anion Gap BUN 3 L Creatinine 0.5 L Glucose 200 H Calcium 8.0 L Magnesium 1.1 L AST ALT 61 H Alkaline Phosphatase Lactate Dehydrogenase 269 H Total Protein 5.3 L Albumin 3.0 L Triglycerides 202 H 01/18/20 01/18/20 21:52 21:52 WBC 13.5 H Hgb Gran # 10.22 H VBG Lactic Acid Sodium 130 L Chloride 86 L Anion Gap 22.0 H BUN Creatinine Glucose 204 H Calcium 7.5 L Magnesium AST 77 H ALT 106 H Alkaline Phosphatase 133 H Lactate Dehydrogenase Total Protein Albumin Triglycerides Meds: Medications Acetaminophen (Tylenol) 650 mg PO Q6HP PRN; Protocol PRN Reason: PAIN/FEVER > 101 Last Admin: 01/20/20 13:58 Dose: 650 mg Documented by: Acetaminophen/Codeine Phosphate (Tylenol #3) 1 - 2 tab PO Q4-6HP PRN; Protocol PRN Reason: Per Pain Protocol Last Admin: 01/21/20 15:24 Dose: 1 tab Documented by: Calcitriol (Rocaltrol) 0.5 mcg PO TID [facility] Last Admin: 01/21/20 15:24 Dose: 0.5 mcg Documented by: Cyclobenzaprine HCl (Flexeril) 10 mg PO BIDP PRN PRN Reason: Spasms Last Admin: 01/20/20 12:00 Dose: 10 mg Documented by: Dextrose (Dextrose 50%) 0 ml IV UD PRN PRN Reason: Hypoglycemia Diagnostic Test (Pha) (Accu-Chek) 1 each FS [facility]; Protocol Last Admin: 01/21/20 11:29 Dose: 1 each Documented by: Duloxetine HCl (Cymbalta) 30 mg PO BID [facility] Last Admin: 01/21/20 09:41 Dose: 30 mg Documented by: Erythromycin (Erythromycin) 250 mg PO QID [facility] Last Admin: 01/21/20 14:11 Dose: 250 mg Documented by: Glucose (Insta-Glucose) 15 gm PO PRN PRN PRN Reason: Hypoglycemia Hydromorphone HCl (Dilaudid) 1 mg IV Q2HP PRN; Protocol PRN Reason: Per Pain Protocol Last Admin: 01/21/20 07:50 Dose: 1 mg Documented by: Insulin Glargine (Lantus) 5 unit SQ BID [facility] Last Admin: 01/21/20 09:41 Dose: 5 units Documented by: Insulin Human Lispro (Humalog) 0 unit SQ [facility]; Protocol Last Admin: 01/21/20 11:30 Dose: Not Given Documented by: Levothyroxine Sodium (Synthroid) [address] [facility] Last Admin: 01/21/20 09:40 Dose: 250 mcg Documented by: Magnesium Oxide (Magnesium Oxide) 400 mg PO BID [facility] Last Admin: 01/21/20 09:41 Dose: 400 mg Documented by: Metformin HCl (Glucophage) 500 mg PO [facility] Last Admin: 01/21/20 09:40 Dose: 500 mg Documented by: Naloxone HCl (Narcan) 0.1 mg IV Q2MIN PRN PRN Reason: Opiate Reversal Ondansetron HCl (Zofran) 4 mg IV Q4HP PRN PRN Reason: Nausea And Vomiting Last Admin: 01/21/20 07:55 Dose: 4 mg Documented by: Ondansetron HCl (Zofran Odt) 4 mg SL Q4HP PRN PRN Reason: Nausea Prednisone (Prednisone) 20 mg PO [facility] Last Admin: 01/21/20 09:41 Dose: 20 mg Documented by: Promethazine HCl (Phenergan) 25 mg IV Q6HP PRN PRN Reason: Nausea And Vomiting Promethazine HCl (Phenergan) 25 mg [place] Q6HP PRN PRN Reason: nausea vomitting Promethazine HCl (Phenergan) 25 mg PO Q6HP PRN PRN Reason: Nausea Last Admin: 01/19/20 23:40 Dose: 25 mg Documented by: Pyridostigmine [place] (Regonol) 10 mg IM Q6H [facility] Last Admin: 01/21/20 14:10 Dose: 10 mg Documented by: Medical - PN: A/P - Time Spent With Patient Total time spent is greater than 50% in coordination of care (as documented) at patient's floor/unit and/or counseling patient: 25 - 35 minutes (1) Small bowel obstruction, partial Status: Resolved Assessment and plan: * Bowel obstruction -managed per surgery. Recurrent in nature Hospitalist consult * Gut hypomotility-continue erythromycin. * hypocalcemia secondary to hypoparathyroidism. IV calcium * DM type II well controlled on basal prandial insulin/metformin/CC diet * History of chronic pain stable on cyclobenzaprine * Anxiety disorder continue duloxetine * History of panhypopituitarism continue oral thyroxine * History of myasthenia gravis continue pyridostigmine/prednisone * Morbid obesity BMI over 40 -continue frequent turning/nutrition support/decubitus precautions * Full code * Prophylaxis Plan * Continue home medications as tolerated * SBO management per surgery * Convert medications to IV if patient n.p.o. Current Visit: Yes Medical - PN: Qual - Stroke Symptom Onset Unknown: No - VTE Deep Vein Thrombosis/Pulmonary Embolism Present on Admission: No
[2020-01-22] MEDS: PYRIDOSTIGMINE BROMIDE 10 MG/2 ML ML IM SCH ×5 (00:23→23:54)
[2020-01-22] MEDS: ONDANSETRON 4 MG/2 ML VIAL IV PRN ×2 (01:36→20:32)
[2020-01-22] MEDS: PROMETHAZINE 25 MG/ML VIAL IV PRN (02:24)
[2020-01-22] MEDS: ACETAMINOPHEN W/CODEINE #3 1 TABLET PO PRN ×4 (05:13→20:31)
[2020-01-22] MEDS: INSULIN LISPRO 1 UNIT/0.01 ML UNIT SQ SCH ×4 (07:39→20:33)
[2020-01-22] MEDS: LEVOTHYROXINE 125 MCG TABLET PO SCH (07:45)
[2020-01-22] MEDS: predniSONE 20 MG TABLET PO SCH (07:45)
[2020-01-22] MEDS: metFORMIN 500 MG TABLET PO SCH (07:45)
[2020-01-22] MEDS: HYDROmorphone 2 MG/ML VIAL IV PRN ×4 (07:48→22:07)
--- NOTE | 2020-01-22 09:16 | General Surgery Progress Note ---
Subjective Patient reports: still having pain, no bowel movement, vomiting Narrative: Note initiated : 01/22/20 at 9:14 am Service Date, if different from initiated Date: [] Patient: Dayanna Guo 59 y/o F admitted on 01/18/20 for Vomiting, Dehydration. Chief Complaint: [] Objective Temp Pulse Resp BP Pulse Ox 98.2 F 105 H 16 138/88 93 01/22/20 07:10 01/22/20 04:00 01/22/20 07:10 01/22/20 07:10 01/22/20 07:10 - Additional Data Intake & Output - Last 24 hours: Intake & Output 01/20/20 01/21/20 01/22/20 01/23/20 05:59 05:59 05:59 05:59 Intake Total 6310 2610 520 Output Total 2300 1800 1550 Balance 4010 810 -1030 Weight 214 lb 8 oz 218 lb 224 lb 8 oz - Abdomen soft, bowel sounds (more distended today with decreased Bowel sounds, ), surgical scars - Labs 01/20/20 11:00 01/20/20 11:00 Assessment and Plan (1) Small bowel obstruction, partial Status: Resolved Assessment and plan: decreased ileostomy output and vomited last night Current Visit: Yes (2) Recurrent intestinal obstruction Problem details: many recurrences; many surgical interventions Status: Chronic Assessment and plan: discussed with Pharmacy kalyn start Methylnaltrexone Current Visit: Yes (3) Chronic intestinal pseudo-obstruction Status: Chronic Current Visit: No - Time Spent With Patient Total time spent is greater than 50% in coordination of care (as documented) at patient's floor/unit and/or counseling patient:
--- NOTE | 2020-01-22 09:27 | Internal Med Progress Note ---
Medical - PN: Subj Patient information: Note initiated : 01/22/20 at 9:24 am Service Date, if different from initiated Date: [] Patient: Dayanna Guo a 59 y/o F admitted on 01/18/20 for Vomiting, Dehydration. Chief Complaint: [] Interval history: Ms. Guo is a 59 year old F morbidly obese F with a complex medical history of parathyroidism , chronic hypocalcemia, polyglandular syndrome, sarcoidosis, myasthenia gravis and recurrent bowel obstruction/abdominal surgeries with colostomy. She was admitted with symptoms of nausea and vomiting/abdominal discomfort over the last couple of days consistent with prior episodes of bowel obstruction. Patient was admitted by surgery and NG decompression initiated. Hospital service was consulted in light of multiple prior medical issues which include history of myasthenia on prednisone/DM type II/anxiety/hypothyroidism. Her prior medical condition has been fairly well managed as outpatient. At the time of evaluation patient is alert. She denies significant nausea or abdominal discomfort. Gas passing through ostomy. She denies fever, headache, chest pain, shortness of breath. She follows up with Dr. Douglas Haque primary care physician. She also follows up with neurology Dr. Yeboah. 01/19-patient doing well. No new events. No concerns per staff. Tolerating diet and advanced per recommendation of surgery. Blood sugars uncontrolled. At the discontinued. Pre-existing well condition stable. Restart oral erythromycin today. 2 g calcium replacement 01/20-worsening symptoms with recurrent high-grade distal small bowel obstruction on imaging. Surgery on board. Currently on clears. If n.p.o. will convert home meds into IVs. 01/21-patient feeling down and depressed. Worsening symptoms. Started on methyl naltrexone. On clears only. Start IV hydrocortisone until oral steroids can bed restarted. - Constitutional Vitals: Vital Signs Temp Pulse Resp BP Pulse Ox 98.2 F 105 H 16 138/88 93 01/22/20 07:10 01/22/20 04:00 01/22/20 07:10 01/22/20 07:10 01/22/20 07:10 Period Temp Pulse Resp BP Sys/Archuleta Pulse Ox Last 24 Hr 97.8 F-98.6 F 105-117 - 114-159/56-88 93-97 Intake and Output 01/21/20 01/22/20 01/22/20 21:59 05:59 13:59 Intake Total 220 300 Output Total 650 300 Balance -430 0 Weight 224 lb 8 oz Intake & Output: Intake & Output 01/21/20 01/22/20 01/22/20 21:59 05:59 13:59 Intake Total 220 300 Output Total 650 300 Balance -430 0 Weight 224 lb 8 oz Intake: Oral 220 300 Output: Void Amount 650 200 Emesis 100 Other: Meal Dinner Percent of Meal Consumed 50% Feeding Ability Independent Urine Appearance Clear Clear Urine Color Dark Yellow Dark Yellow Urine Odor Strong General appearance: morbidly obese Exam: Anxious Nonlabored breathing Nondistended abdomen Ostomy bag in place Medical - PN: Obj Da - Labs CBC & Chem 7: 01/20/20 11:00 01/20/20 11:00 Labs: Abnormal Lab Results 01/20/20 01/20/20 11:00 11:00 Hgb 10.7 L Sodium 131 L Chloride 92 L BUN 3 L Creatinine 0.5 L Glucose 200 H Calcium 8.0 L Magnesium 1.1 L ALT 61 H Lactate Dehydrogenase 269 H Total Protein 5.3 L Albumin 3.0 L Triglycerides 202 H Meds: Medications Acetaminophen (Tylenol) 650 mg PO Q6HP PRN; Protocol PRN Reason: PAIN/FEVER > 101 Last Admin: 01/20/20 13:58 Dose: 650 mg Documented by: Acetaminophen/Codeine Phosphate (Tylenol #3) 1 - 2 tab PO Q4-6HP PRN; Protocol PRN Reason: Per Pain Protocol Last Admin: 01/22/20 05:13 Dose: 2 tab Documented by: Calcitriol (Rocaltrol) 0.5 mcg PO TID [facility] Last Admin: 01/21/20 21:52 Dose: 0.5 mcg Documented by: Cyclobenzaprine HCl (Flexeril) 10 mg PO BIDP PRN PRN Reason: Spasms Last Admin: 01/20/20 12:00 Dose: 10 mg Documented by: Dextrose (Dextrose 50%) 0 ml IV UD PRN PRN Reason: Hypoglycemia Diagnostic Test (Pha) (Accu-Chek) 1 each FS [facility]; Protocol Last Admin: 01/22/20 07:35 Dose: 1 each Documented by: Duloxetine HCl (Cymbalta) 30 mg PO BID [facility] Last Admin: 01/21/20 21:51 Dose: 30 mg Documented by: Erythromycin (Erythromycin) 250 mg PO QID [facility] Last Admin: 01/21/20 21:51 Dose: 250 mg Documented by: Glucose (Insta-Glucose) 15 gm PO PRN PRN PRN Reason: Hypoglycemia Hydromorphone HCl (Dilaudid) 1 mg IV Q2HP PRN; Protocol PRN Reason: Per Pain Protocol Last Admin: 01/22/20 07:48 Dose: 1 mg Documented by: Potassium Chloride/Dextrose/Sod Cl (Dextrose 5%-1/2ns W/20meq Kcl) 1,000 mls @ 125 mls/hr IV .Q8H [facility] Insulin Glargine (Lantus) 5 unit SQ BID [facility] Last Admin: 01/21/20 21:51 Dose: 5 units Documented by: Insulin Human Lispro (Humalog) 0 unit SQ [facility]; Protocol Last Admin: 01/22/20 07:39 Dose: Not Given Documented by: Levothyroxine Sodium (Synthroid) 250 mcg PO [facility] Last Admin: 01/22/20 07:45 Dose: 250 mcg Documented by: Magnesium Oxide (Magnesium Oxide) 400 mg PO BID [facility] Last Admin: 01/21/20 21:51 Dose: 400 mg Documented by: Metformin HCl (Glucophage) 500 mg PO [facility] Last Admin: 01/22/20 07:45 Dose: 500 mg Documented by: Methylnaltrexone [place] (Relistor) 12 mg SC DAILY [facility] Stop: 01/24/20 09:01 Naloxone HCl (Narcan) 0.1 mg IV Q2MIN PRN PRN Reason: Opiate Reversal Ondansetron HCl (Zofran) 4 mg IV Q4HP PRN PRN Reason: Nausea And Vomiting Last Admin: 01/22/20 01:36 Dose: 4 mg Documented by: Ondansetron HCl (Zofran Odt) 4 mg SL Q4HP PRN PRN Reason: Nausea Prednisone (Prednisone) 20 mg PO [facility] Last Admin: 01/22/20 07:45 Dose: 20 mg Documented by: Promethazine HCl (Phenergan) 25 mg IV Q6HP PRN PRN Reason: Nausea And Vomiting Last Admin: 01/22/20 02:24 Dose: 25 mg Documented by: Promethazine HCl (Phenergan) 25 mg [place] Q6HP PRN PRN Reason: nausea vomitting Promethazine HCl (Phenergan) 25 mg PO Q6HP PRN PRN Reason: Nausea Last Admin: 01/19/20 23:40 Dose: 25 mg Documented by: Pyridostigmine [place] (Regonol) 10 mg IM Q6H [facility] Last Admin: 01/22/20 05:57 Dose: 10 mg Documented by: Medical - PN: A/P - Time Spent With Patient Total time spent is greater than 50% in coordination of care (as documented) at patient's floor/unit and/or counseling patient: 25 - 35 minutes (1) Small bowel obstruction, partial Status: Resolved Assessment and plan: * Bowel obstruction -managed per surgery. Recurrent in nature. Started on methylnaltrexone * Abdominal pain on opioids Hospitalist consult for issues as below Oral medications on hold patient n.p.o. * Gut hypomotility-now on methylnaltrexone. Hold oral azithromycin * hypocalcemia secondary to hypoparathyroidism. IV calcium * DM type II well controlled on basal prandial insulin/metformin/CC diet * History of chronic pain stable on cyclobenzaprine * Anxiety disorder continue duloxetine * History of panhypopituitarism continue oral thyroxine * History of myasthenia gravis continue pyridostigmine/prednisone * Morbid obesity BMI over 40 -continue frequent turning/nutrition support/decubitus precautions * Full code * Prophylaxis Plan * Hold p.o. meds until SBO resolves * SBO management per surgery * IV hydrocortisone as needed until able to take oral prednisone Current Visit: Yes Medical - PN: Qual - Stroke Symptom Onset Unknown: No - VTE Deep Vein Thrombosis/Pulmonary Embolism Present on Admission: No
[2020-01-22] MEDS: DULoxetine 30 MG CAPSULE PO SCH ×2 (09:32→20:32)
[2020-01-22] MEDS: CALCITRIOL 0.25 MCG CAPSULE PO SCH ×3 (09:32→20:32)
[2020-01-22] MEDS: MAGNESIUM OXIDE 400 MG TABLET PO SCH ×2 (09:32→20:32)
[2020-01-22] MEDS: INSULIN GLARGINE, HUMAN 1 UNIT/0.01 ML SQ SCH ×2 (09:38→20:32)
[2020-01-22] MEDS: ERYTHROMYCIN BASE 250 MG TABLET PO SCH ×4 (10:25→20:32)
[2020-01-22] MEDS: METHYLNALTREXONE BROMIDE 12 MG/0.6 ML SYRINGE SC SCH (10:25)
[2020-01-22] MEDS: DEXTROSE 5%-1/2NS W/20MEQ KCL 1,000 ML IV SCH ×2 (10:28→19:42)
[2020-01-23] MEDS: ACETAMINOPHEN W/CODEINE #3 1 TABLET PO PRN ×3 (01:27→16:13)
[2020-01-23] MEDS: PROMETHAZINE 25 MG/ML VIAL IV PRN ×3 (01:29→20:38)
[2020-01-23] MEDS: DEXTROSE 5%-1/2NS W/20MEQ KCL 1,000 ML IV SCH ×4 (03:47→20:22)
[2020-01-23] MEDS: HYDROmorphone 2 MG/ML VIAL IV PRN ×5 (04:42→23:56)
[2020-01-23] MEDS: PYRIDOSTIGMINE BROMIDE 10 MG/2 ML ML IM SCH ×4 (06:04→23:50)
[2020-01-23] MEDS: ONDANSETRON 4 MG/2 ML VIAL IV PRN ×3 (06:04→23:57)
[2020-01-23 06:49] LABS: Basophils # (Auto) 0.01 K/mcL (0.00-0.30); Basophils % (Auto) 0.2 % (0.0-2.0); Eosinophils # (Auto) 0.05 K/mcL (0.00-0.70); Granulocytes % (Auto) 70.8 % (38.0-78.0); Hematocrit 34.7 % (34.1-44.9); Hemoglobin 10.8 g/dL (11.2-15.7); Lymphocytes # (Auto) 0.93 K/mcL (1.50-4.80); Mean Cell Volume 89.4 fL (80.0-100.0); Mean Corpuscular HGB Conc 31.1 g/dL (31.0-36.0); Mean Platelet Volume 9.8 fL (7.4-10.4); Monocytes # (Auto) 0.44 K/mcL (0.10-0.90); Platelet Count 311 K/mcL (140-440); RBC 3.88 M/mcL (3.59-5.38); Red Cell Distribution Width 14.1 % (11.5-14.5); WBC 4.9 K/mcL (4.50-11.00)
[2020-01-23 07:14] LABS: ALT/SGPT 28 U/l (0-40); AST/SGOT 15 U/l (0-37); Albumin 2.6 gm/dL (3.2-5.2); Alkaline Phosphatase 78 U/L (39-117); Bilirubin,Total < 0.2 mg/dL (0.0-1.0); Calcium 7.2 mg/dl (8.6-10.4); Carbon Dioxide 32 mmol/L (22-30); Globulin 2.6 gm/dL (2.2-3.7); Glomerular Filtration Rate 100; Glucose 183 mg/dL (70-105)
[2020-01-23 07:16] LABS: Blood Urea Nitrogen 6 mg/dl (6-20); Chloride 93 mmol/L (96-108)
[2020-01-23] MEDS: INSULIN LISPRO 1 UNIT/0.01 ML UNIT SQ SCH ×4 (07:52→20:38)
[2020-01-23] MEDS: LEVOTHYROXINE 125 MCG TABLET PO SCH (07:52)
[2020-01-23] MEDS: metFORMIN 500 MG TABLET PO SCH (07:52)
[2020-01-23] MEDS: predniSONE 20 MG TABLET PO SCH (07:52)
[2020-01-23] MEDS ORDERED: HYDROCORTISONE SOD SUCC 100 MG VIAL IV PRN (08:00)
--- NOTE | 2020-01-23 08:29 | General Surgery Progress Note ---
Subjective Patient reports: no new complaints, pain is less, tolerating liquids well, other (minimal ileostomy output feels distended) Narrative: Note initiated : 01/23/20 at 8:27 am Service Date, if different from initiated Date: [] Patient: Dayanna Guo a 59 y/o F admitted on 01/18/20 for Vomiting, Dehydration. Chief Complaint: [] Objective Temp Pulse Resp BP Pulse Ox 98 F 103 H 16 122/84 93 01/23/20 03:53 01/23/20 03:53 01/23/20 03:53 01/23/20 03:53 01/23/20 03:53 - Additional Data Intake & Output - Last 24 hours: Intake & Output 01/21/20 01/22/20 01/23/20 01/24/20 05:59 05:59 05:59 05:59 Intake Total 2610 520 2500 Output Total 1800 1550 1800 Balance 810 -1030 700 Weight 218 lb 224 lb 8 oz 224 lb 8 oz - General physical appearance no distress - Respiratory normal expansion, normal respiratory effort, clear to percussion, clear to au scultation - Cardiovascular Cardiovascular exam: Present: normal rate and rhythm - Abdomen soft, non tender, surgical scars, distended - Labs 01/23/20 05:00 01/23/20 05:00 Diabetes panel 01/23/20 Range/Units 05:00 Sodium 133 (133-145) mmol/L Potassium 4.3 (3.3-5.1) mmol/L Chloride 93 L (96-108) mmol/L Carbon Dioxide 32 H (22-30) mmol/L BUN 6 (6-20) mg/dl Creatinine 0.6 (0.6-1.1) mg/dl Glucose 183 H (70-105) mg/dL Calcium 7.2 L (8.6-10.4) mg/dl AST 15 (0-37) U/l ALT 28 (0-40) U/l Alkaline Phosphatase 78 (39-117) U/L Total Protein 5.2 L (5.9-8.4) gm/dL Albumin 2.6 L (3.2-5.2) gm/dL Calcium panel 01/23/20 Range/Units 05:00 Calcium 7.2 L (8.6-10.4) mg/dl Albumin 2.6 L (3.2-5.2) gm/dL Pituitary panel 01/23/20 Range/Units 05:00 Sodium 133 (133-145) mmol/L Potassium 4.3 (3.3-5.1) mmol/L Chloride 93 L (96-108) mmol/L Carbon Dioxide 32 H (22-30) mmol/L BUN 6 (6-20) mg/dl Creatinine 0.6 (0.6-1.1) mg/dl Glucose 183 H (70-105) mg/dL Calcium 7.2 L (8.6-10.4) mg/dl Adrenal panel 01/23/20 Range/Units 05:00 Sodium 133 (133-145) mmol/L Potassium 4.3 (3.3-5.1) mmol/L Chloride 93 L (96-108) mmol/L Carbon Dioxide 32 H (22-30) mmol/L BUN 6 (6-20) mg/dl Creatinine 0.6 (0.6-1.1) mg/dl Glucose 183 H (70-105) mg/dL Calcium 7.2 L (8.6-10.4) mg/dl Total Bilirubin < 0.2 (0.0-1.0) mg/dL AST 15 (0-37) U/l ALT 28 (0-40) U/l Alkaline Phosphatase 78 (39-117) U/L Total Protein 5.2 L (5.9-8.4) gm/dL Albumin 2.6 L (3.2-5.2) gm/dL Assessment and Plan (1) Small bowel obstruction, partial Status: Resolved Assessment and plan: decreased ileostomy output and vomited last night Current Visit: Yes (2) Recurrent intestinal obstruction Problem details: many recurrences; many surgical interventions Status: Chronic Assessment and plan: discussed with Pharmacy kalyn start Methylnaltrexone Current Visit: Yes (3) Chronic intestinal pseudo-obstruction Status: Chronic Current Visit: No - Time Spent With Patient Total time spent is greater than 50% in coordination of care (as documented) at patient's floor/unit and/or counseling patient: less than 15 minutes
[2020-01-23] MEDS: POLYETHYLENE GLYCOL 3350 17 GM PACKET PO SCH ×4 (09:14→20:37)
[2020-01-23] MEDS: MAGNESIUM OXIDE 400 MG TABLET PO SCH ×2 (09:15→20:38)
[2020-01-23] MEDS: DULoxetine 30 MG CAPSULE PO SCH ×2 (09:15→20:38)
[2020-01-23] MEDS: ERYTHROMYCIN BASE 250 MG TABLET PO SCH ×4 (09:16→20:37)
[2020-01-23] MEDS: INSULIN GLARGINE, HUMAN 1 UNIT/0.01 ML SQ SCH ×2 (09:16→20:37)
[2020-01-23] MEDS: METHYLNALTREXONE BROMIDE 12 MG/0.6 ML SYRINGE SC SCH (09:17)
[2020-01-23] MEDS: CALCITRIOL 0.25 MCG CAPSULE PO SCH ×3 (09:34→20:38)
--- NOTE | 2020-01-23 14:52 | XRay Report ---
CLINICAL INFORMATION: Abdominal pain and distention COMPARISON: 01/21/2024 FINDINGS: The stomach and multiple loops of small bowel are moderately dilated with air-fluid levels. Distal small bowel is decompressed. Total colectomy changes acknowledged. No free air. IMPRESSION: High-grade recurrent distal small bowel obstruction Interpreted and Authenticated by: All Lundberg 01/23/20
[2020-01-24] MEDS: ONDANSETRON 4 MG/2 ML VIAL IV PRN ×2 (04:31→12:16)
[2020-01-24] MEDS: HYDROmorphone 2 MG/ML VIAL IV PRN ×5 (04:32→21:34)
[2020-01-24] MEDS: DEXTROSE 5%-1/2NS W/20MEQ KCL 1,000 ML IV SCH ×4 (04:34→21:34)
[2020-01-24] MEDS: PYRIDOSTIGMINE BROMIDE 10 MG/2 ML ML IM SCH ×3 (06:22→18:15)
[2020-01-24] MEDS: PROMETHAZINE 25 MG/ML VIAL IV PRN ×2 (07:01→14:54)
[2020-01-24] MEDS: INSULIN LISPRO 1 UNIT/0.01 ML UNIT SQ SCH ×4 (07:41→21:05)
--- NOTE | 2020-01-24 09:01 | General Surgery Progress Note ---
Subjective Patient reports: no flatus, no bowel movement, vomiting, other (more distended abdomen) Narrative: Note initiated : 01/24/20 at 8:59 am Service Date, if different from initiated Date: [] Patient: Dayanna Guo 59 y/o F admitted on 01/18/20 for Vomiting, Dehydration. Chief Complaint: [] Objective Temp Pulse Resp BP Pulse Ox 97.5 F 105 H 16 174/96 99 01/24/20 04:00 01/24/20 04:00 01/24/20 04:00 01/24/20 04:00 01/24/20 04:00 - Additional Data Intake & Output - Last 24 hours: Intake & Output 01/22/20 01/23/20 01/24/20 01/25/20 05:59 05:59 05:59 05:59 Intake Total 520 2500 3379 Output Total 1550 1800 1600 Balance -2480 944 7210 Weight 224 lb 8 oz 224 lb 8 oz 229 lb 8 oz - General physical appearance well developed, well nourished, moderate distress, obese - Respiratory normal respiratory effort, clear to percussion, clear to auscultation - Cardiovascular Cardiovascular exam: Present: normal rate and rhythm - Abdomen surgical scars, distended - Labs 01/23/20 05:00 01/23/20 05:00 - Imaging Abdominal x-ray: report reviewed, image reviewed (ABD is more distended and stomach is distended more on X-ray ) Assessment and Plan (1) Small bowel obstruction, partial Status: Resolved Assessment and plan: decreased ileostomy output and vomited last night Current Visit: Yes (2) Recurrent intestinal obstruction Problem details: many recurrences; many surgical interventions Status: Chronic Assessment and plan: discussed with Pharmacy kalyn start Methylnaltrexone ABD more distended today will replace NG and make NPO again Current Visit: Yes (3) Chronic intestinal pseudo-obstruction Status: Chronic Assessment and plan: Continue conservative management for now Current Visit: Yes - Time Spent With Patient Total time spent is greater than 50% in coordination of care (as documented) at patient's floor/unit and/or counseling patient:
[2020-01-24] MEDS: LEVOTHYROXINE 125 MCG TABLET PO SCH (11:52)
[2020-01-24] MEDS: DULoxetine 30 MG CAPSULE PO SCH ×2 (11:53→21:04)
[2020-01-24] MEDS: predniSONE 20 MG TABLET PO SCH (11:53)
[2020-01-24] MEDS: metFORMIN 500 MG TABLET PO SCH (11:53)
[2020-01-24] MEDS: MAGNESIUM OXIDE 400 MG TABLET PO SCH ×2 (11:54→21:05)
[2020-01-24] MEDS: ERYTHROMYCIN BASE 250 MG TABLET PO SCH ×4 (11:54→21:04)
[2020-01-24] MEDS: INSULIN GLARGINE, HUMAN 1 UNIT/0.01 ML SQ SCH ×2 (11:54→21:05)
[2020-01-24] MEDS: CALCITRIOL 0.25 MCG CAPSULE PO SCH ×3 (11:55→21:05)
[2020-01-24] MEDS: POLYETHYLENE GLYCOL 3350 17 GM PACKET PO SCH ×4 (11:55→21:05)
[2020-01-24] MEDS ORDERED: BENZOCAINE/MENTHOL 1 LOZENGE PO PRN (13:08)
[2020-01-24] MEDS ORDERED: BENZOCAINE 1 SPRAY BOTTLE TOPICAL PRN (13:08)
[2020-01-24] MEDS: METHYLNALTREXONE BROMIDE 12 MG/0.6 ML SYRINGE SC SCH (14:34)
--- NOTE | 2020-01-24 18:28 | XRay Report ---
CLINICAL INFORMATION: NG placement COMPARISON: 01/23/2020 FINDINGS: NG tube is malpositioned - bent in the distal esophagus. The stomach is markedly dilated. Only few loops small bowel are visualized and appear moderately dilated. No free air IMPRESSION: Distal small bowel obstruction pattern. Malpositioned NG tube - bent in the distal esophagus Interpreted and Authenticated by: All Lundberg 01/24/20
--- NOTE | 2020-01-24 19:22 | XRay Report ---
CLINICAL INFORMATION: NG Tube Placement COMPARISON: None. FINDINGS: NG tube now satisfactory position with the tip in the gastric body. The stomach and small bowel remain moderately dilated. No free air IMPRESSION: NG tube now in good position in the gastric body. Small bowel obstruction pattern - unchanged Interpreted and Authenticated by: All Lundberg 01/24/20
[2020-01-24] MEDS: BENZOCAINE 1 SPRAY BOTTLE TOPICAL PRN (21:18)
[2020-01-25] MEDS: BENZOCAINE 1 SPRAY BOTTLE TOPICAL PRN (00:03)
[2020-01-25] MEDS: PYRIDOSTIGMINE BROMIDE 10 MG/2 ML ML IM SCH ×5 (00:05→23:42)
[2020-01-25] MEDS: HYDROmorphone 2 MG/ML VIAL IV PRN ×6 (00:24→16:59)
[2020-01-25] MEDS: DEXTROSE 5%-1/2NS W/20MEQ KCL 1,000 ML IV SCH ×5 (01:23→23:41)
[2020-01-25 06:35] LABS: Basophils # (Auto) 0.02 K/mcL (0.00-0.30); Basophils % (Auto) 0.3 % (0.0-2.0); Eosinophils # (Auto) 0.39 K/mcL (0.00-0.70); Eosinophils % (Auto) 5.9 % (0.0-7.0); Granulocytes % (Auto) 48.1 % (38.0-78.0); Hematocrit 39.7 % (34.1-44.9); Hemoglobin 12.3 g/dL (11.2-15.7); Lymphocytes # (Auto) 2.23 K/mcL (1.50-4.80); Lymphocytes % (Auto) 33.7 % (15.5-49.0); Mean Platelet Volume 9.1 fL (7.4-10.4); Monocytes # (Auto) 0.79 K/mcL (0.10-0.90); Platelet Count 376 K/mcL (140-440); RBC 4.41 M/mcL (3.59-5.38); Red Cell Distribution Width 13.9 % (11.5-14.5); WBC 6.6 K/mcL (4.50-11.00)
[2020-01-25 06:57] LABS: ALT/SGPT 20 U/l (0-40); AST/SGOT 14 U/l (0-37); Albumin 2.8 gm/dL (3.2-5.2); Albumin/Globulin Ratio 1.1 (1.0-2.3); Alkaline Phosphatase 86 U/L (39-117); Bilirubin,Total 0.2 mg/dL (0.0-1.0); Blood Urea Nitrogen 5 mg/dl (6-20); Calcium 6.5 mg/dl (8.6-10.4); Carbon Dioxide 33 mmol/L (22-30); Chloride 98 mmol/L (96-108); Globulin 2.6 gm/dL (2.2-3.7); Glomerular Filtration Rate 100; Glucose 134 mg/dL (70-105)
[2020-01-25] MEDS ORDERED: MAGNESIUM SULFATE 2 GM/50 ML BAG IV ONE (08:30)
[2020-01-25] MEDS: INSULIN LISPRO 1 UNIT/0.01 ML UNIT SQ SCH ×4 (08:50→20:01)
[2020-01-25] MEDS ORDERED: CALCIUM GLUCONATE 9.3 MEQ in DEXTROSE 5% IN WATER 50 ML IV ONE (09:00)
--- NOTE | 2020-01-25 10:02 | General Surgery Progress Note ---
Subjective Patient reports: feels better, pain is less, voiding w/o difficulty, other (ileostomy output better but still not normal ) Narrative: Note initiated : 01/25/20 at 10:00 am Service Date, if different from initiated Date: [] Patient: Dayanna Guo a 59 y/o F admitted on 01/18/20 for Vomiting, Dehydration. Chief Complaint: [] Objective Temp Pulse Resp BP Pulse Ox 98.3 F 90 18 127/68 99 01/25/20 08:00 01/25/20 08:00 01/25/20 08:00 01/25/20 08:00 01/25/20 08:00 - Additional Data Intake & Output - Last 24 hours: Intake & Output 01/23/20 01/24/20 01/25/20 01/26/20 05:59 05:59 05:59 05:59 Intake Total 2500 3379 2120 Output Total 1800 1600 4375 Balance 700 1779 -2255 Weight 224 lb 8 oz 229 lb 8 oz 223 lb 5 oz - General physical appearance well developed, well nourished, obese - Abdomen soft, non tender, bowel sounds, surgical scars, distended - Labs 01/25/20 05:13 01/25/20 05:13 Diabetes panel 01/25/20 Range/Units 05:13 Sodium 139 (133-145) mmol/L Potassium 4.6 (3.3-5.1) mmol/L Chloride 98 (96-108) mmol/L Carbon Dioxide 33 H (22-30) mmol/L BUN 5 L (6-20) mg/dl Creatinine 0.6 (0.6-1.1) mg/dl Glucose 134 H (70-105) mg/dL Calcium 6.5 L (8.6-10.4) mg/dl AST 14 (0-37) U/l ALT 20 (0-40) U/l Alkaline Phosphatase 86 (39-117) U/L Total Protein 5.4 L (5.9-8.4) gm/dL Albumin 2.8 L (3.2-5.2) gm/dL Calcium panel 01/25/20 Range/Units 05:13 Calcium 6.5 L (8.6-10.4) mg/dl Albumin 2.8 L (3.2-5.2) gm/dL Pituitary panel 01/25/20 Range/Units 05:13 Sodium 139 (133-145) mmol/L Potassium 4.6 (3.3-5.1) mmol/L Chloride 98 (96-108) mmol/L Carbon Dioxide 33 H (22-30) mmol/L BUN 5 L (6-20) mg/dl Creatinine 0.6 (0.6-1.1) mg/dl Glucose 134 H (70-105) mg/dL Calcium 6.5 L (8.6-10.4) mg/dl Adrenal panel 01/25/20 Range/Units 05:13 Sodium 139 (133-145) mmol/L Potassium 4.6 (3.3-5.1) mmol/L Chloride 98 (96-108) mmol/L Carbon Dioxide 33 H (22-30) mmol/L BUN 5 L (6-20) mg/dl Creatinine 0.6 (0.6-1.1) mg/dl Glucose 134 H (70-105) mg/dL Calcium 6.5 L (8.6-10.4) mg/dl Total Bilirubin 0.2 (0.0-1.0) mg/dL AST 14 (0-37) U/l ALT 20 (0-40) U/l Alkaline Phosphatase 86 (39-117) U/L Total Protein 5.4 L (5.9-8.4) gm/dL Albumin 2.8 L (3.2-5.2) gm/dL - Imaging Abdominal x-ray: report reviewed, image reviewed Assessment and Plan (1) Small bowel obstruction, partial Status: Resolved Assessment and plan: decreased ileostomy output and vomited last night Current Visit: Yes (2) Recurrent intestinal obstruction Problem details: many recurrences; many surgical interventions Status: Chronic Assessment and plan: discussed with Pharmacy kalyn start Methylnaltrexone ABD more distended today will replace NG and make NPO again Current Visit: Yes (3) Chronic intestinal pseudo-obstruction Status: Chronic Assessment and plan: Continue conservative management for now Current Visit: Yes (4) Electrolyte abnormality Status: Acute Assessment and plan: Discussed with Pharm D. Will address these issues . Current Visit: Yes (5) Hypocalcemia Status: Acute Assessment and plan: replacement as needed Current Visit: Yes - Time Spent With Patient Total time spent is greater than 50% in coordination of care (as documented) at patient's floor/unit and/or counseling patient:
[2020-01-25] MEDS: POLYETHYLENE GLYCOL 3350 17 GM PACKET PO SCH ×4 (11:26→19:51)
[2020-01-25] MEDS: ERYTHROMYCIN BASE 250 MG TABLET PO SCH ×4 (11:27→20:00)
[2020-01-25] MEDS: MAGNESIUM OXIDE 400 MG TABLET PO SCH ×2 (11:27→19:51)
[2020-01-25] MEDS: CALCITRIOL 0.25 MCG CAPSULE PO SCH ×3 (11:27→19:51)
[2020-01-25] MEDS: DULoxetine 30 MG CAPSULE PO SCH ×2 (11:27→19:51)
[2020-01-25] MEDS: predniSONE 20 MG TABLET PO SCH (11:28)
[2020-01-25] MEDS: metFORMIN 500 MG TABLET PO SCH (11:28)
[2020-01-25] MEDS: LEVOTHYROXINE 125 MCG TABLET PO SCH (11:29)
[2020-01-25] MEDS: INSULIN GLARGINE, HUMAN 1 UNIT/0.01 ML SQ SCH ×2 (11:30→20:04)
[2020-01-25] MEDS: ONDANSETRON 4 MG/2 ML VIAL IV PRN (18:05)
[2020-01-25] MEDS: ACETAMINOPHEN W/CODEINE #3 1 TABLET PO PRN ×2 (19:51→23:43)
[2020-01-26] MEDS: ONDANSETRON 4 MG/2 ML VIAL IV PRN (04:15)
[2020-01-26] MEDS: PYRIDOSTIGMINE BROMIDE 10 MG/2 ML ML IM SCH ×3 (05:39→17:22)
[2020-01-26] MEDS: PROMETHAZINE 25 MG/ML VIAL IV PRN (07:20)
[2020-01-26] MEDS: HYDROmorphone 2 MG/ML VIAL IV PRN ×4 (07:23→17:57)
[2020-01-26] MEDS: DEXTROSE 5%-1/2NS W/20MEQ KCL 1,000 ML IV SCH ×2 (09:48→17:50)
[2020-01-26] MEDS: ACETAMINOPHEN W/CODEINE #3 1 TABLET PO PRN ×3 (10:11→22:00)
[2020-01-26] MEDS: LEVOTHYROXINE 125 MCG TABLET PO SCH (10:13)
[2020-01-26] MEDS: POLYETHYLENE GLYCOL 3350 17 GM PACKET PO SCH ×4 (10:14→21:57)
[2020-01-26] MEDS: ERYTHROMYCIN BASE 250 MG TABLET PO SCH ×4 (10:14→21:59)
[2020-01-26] MEDS: predniSONE 20 MG TABLET PO SCH (10:14)
--- NOTE | 2020-01-26 10:19 | General Surgery Progress Note ---
Subjective Patient reports: no new complaints, feels better Narrative: Note initiated : 01/26/20 at 10:17 am Service Date, if different from initiated Date: [] Patient: Dayanna Guo a 59 y/o F admitted on 01/18/20 for Vomiting, Dehydration. Chief Complaint: [recurrent SBO and Small bowel ileus Narcotic bowel with associated ileus ] ileostomy workin better this AM will restart diet Objective Temp Pulse Resp BP Pulse Ox 98.1 F 95 H 18 176/85 100 01/26/20 07:49 01/26/20 07:49 01/26/20 07:49 01/26/20 07:49 01/26/20 07:49 - Additional Data Intake & Output - Last 24 hours: Intake & Output 01/24/20 01/25/20 01/26/20 01/27/20 05:59 05:59 05:59 05:59 Intake Total 3379 2120 2120 1000 Output Total 1600 4375 3200 500 Balance 1779 -2255 -1080 500 Weight 229 lb 8 oz 223 lb 5 oz 218 lb - Respiratory normal expansion, normal respiratory effort, clear to percussion, clear to auscu ltation - Cardiovascular Cardiovascular exam: Present: normal rate and rhythm - Abdomen soft, non tender (Ileostomy out put better ) - Labs 01/25/20 05:13 01/25/20 05:13 Assessment and Plan (1) Small bowel obstruction, partial Status: Resolved Assessment and plan: decreased ileostomy output and vomited last night Current Visit: Yes (2) Recurrent intestinal obstruction Problem details: many recurrences; many surgical interventions Status: Chronic Assessment and plan: discussed with Pharmacy kalyn start Methylnaltrexone ABD more distended today will replace NG and make NPO again Current Visit: Yes (3) Chronic intestinal pseudo-obstruction Status: Chronic Assessment and plan: Continue conservative management for now Current Visit: Yes (4) Electrolyte abnormality Status: Acute Assessment and plan: Discussed with Pharm D. Will address these issues . Current Visit: Yes (5) Hypocalcemia Status: Acute Assessment and plan: replacement as needed Current Visit: Yes - Time Spent With Patient Total time spent is greater than 50% in coordination of care (as documented) at patient's floor/unit and/or counseling patient: less than 15 minutes
[2020-01-26] MEDS: INSULIN LISPRO 1 UNIT/0.01 ML UNIT SQ SCH ×4 (12:16→21:43)
[2020-01-26] MEDS: metFORMIN 500 MG TABLET PO SCH ×2 (12:28→12:36)
[2020-01-26] MEDS: CALCITRIOL 0.25 MCG CAPSULE PO SCH ×3 (12:29→21:59)
[2020-01-26] MEDS: INSULIN GLARGINE, HUMAN 1 UNIT/0.01 ML SQ SCH ×2 (12:29→21:57)
[2020-01-26] MEDS: DULoxetine 30 MG CAPSULE PO SCH ×2 (12:35→22:03)
[2020-01-26] MEDS: MAGNESIUM OXIDE 400 MG TABLET PO SCH ×2 (12:37→22:00)
[2020-01-26] MEDS: CYCLOBENZAPRINE 10 MG TABLET PO PRN (21:59)
[2020-01-27] MEDS: PYRIDOSTIGMINE BROMIDE 10 MG/2 ML ML IM SCH ×5 (00:01→23:58)
[2020-01-27] MEDS: ONDANSETRON 4 MG ODT TABLET SL PRN ×2 (00:02→05:56)
[2020-01-27] MEDS: ACETAMINOPHEN W/CODEINE #3 1 TABLET PO PRN ×7 (00:02→21:18)
[2020-01-27] MEDS: DEXTROSE 5%-1/2NS W/20MEQ KCL 1,000 ML IV SCH ×3 (01:54→18:45)
[2020-01-27 06:39] LABS: ALT/SGPT 18 U/l (0-40); AST/SGOT 16 U/l (0-37); Albumin 2.4 gm/dL (3.2-5.2); Albumin/Globulin Ratio 1.1 (1.0-2.3); Alkaline Phosphatase 65 U/L (39-117); Bilirubin,Total < 0.2 mg/dL (0.0-1.0); Blood Urea Nitrogen 2 mg/dl (6-20); Calcium 6.5 mg/dl (8.6-10.4); Carbon Dioxide 31 mmol/L (22-30); Chloride 101 mmol/L (96-108); Globulin 2.2 gm/dL (2.2-3.7); Glomerular Filtration Rate 107; Glucose 100 mg/dL (70-105)
[2020-01-27] MEDS: LEVOTHYROXINE 125 MCG TABLET PO SCH (07:10)
[2020-01-27] MEDS: INSULIN LISPRO 1 UNIT/0.01 ML UNIT SQ SCH ×4 (07:12→21:19)
--- NOTE | 2020-01-27 07:14 | General Surgery Progress Note ---
Subjective Patient reports: no new complaints, feels better, pain is less, tolerating liquids well Narrative: Note initiated : 01/27/20 at 7:12 am Service Date, if different from initiated Date: [] Patient: Dayanna Guo 59 y/o F admitted on 01/18/20 for Vomiting, Dehydration. Chief Complaint: [] Objective Temp Pulse Resp BP Pulse Ox 97.7 F 98 H 16 136/80 99 01/27/20 04:26 01/27/20 04:26 01/27/20 04:26 01/27/20 04:26 01/27/20 04:26 - Additional Data Intake & Output - Last 24 hours: Intake & Output 01/25/20 01/26/20 01/27/20 01/28/20 05:59 05:59 05:59 05:59 Intake Total 2120 2120 5260 Output Total 4375 3200 2925 Balance -2255 -1080 2335 Weight 223 lb 5 oz 218 lb 219 lb - General physical appearance well developed, well nourished, obese - Respiratory normal respiratory effort, clear to percussion, clear to auscultation - Cardiovascular Cardiovascular exam: Present: normal rate and rhythm - Abdomen soft, non tender, bowel sounds (ileostomy working well now) - Labs 01/25/20 05:13 01/27/20 05:20 Diabetes panel 01/27/20 Range/Units 05:20 Sodium 142 (133-145) mmol/L Potassium 3.9 (3.3-5.1) mmol/L Chloride 101 (96-108) mmol/L Carbon Dioxide 31 H (22-30) mmol/L BUN 2 L (6-20) mg/dl Creatinine 0.5 L (0.6-1.1) mg/dl Glucose 100 (70-105) mg/dL Calcium 6.5 L (8.6-10.4) mg/dl AST 16 (0-37) U/l ALT 18 (0-40) U/l Alkaline Phosphatase 65 (39-117) U/L Total Protein 4.6 L (5.9-8.4) gm/dL Albumin 2.4 L (3.2-5.2) gm/dL Calcium panel 01/27/20 Range/Units 05:20 Calcium 6.5 L (8.6-10.4) mg/dl Albumin 2.4 L (3.2-5.2) gm/dL Pituitary panel 01/27/20 Range/Units 05:20 Sodium 142 (133-145) mmol/L Potassium 3.9 (3.3-5.1) mmol/L Chloride 101 (96-108) mmol/L Carbon Dioxide 31 H (22-30) mmol/L BUN 2 L (6-20) mg/dl Creatinine 0.5 L (0.6-1.1) mg/dl Glucose 100 (70-105) mg/dL Calcium 6.5 L (8.6-10.4) mg/dl Adrenal panel 01/27/20 Range/Units 05:20 Sodium 142 (133-145) mmol/L Potassium 3.9 (3.3-5.1) mmol/L Chloride 101 (96-108) mmol/L Carbon Dioxide 31 H (22-30) mmol/L BUN 2 L (6-20) mg/dl Creatinine 0.5 L (0.6-1.1) mg/dl Glucose 100 (70-105) mg/dL Calcium 6.5 L (8.6-10.4) mg/dl Total Bilirubin < 0.2 (0.0-1.0) mg/dL AST 16 (0-37) U/l ALT 18 (0-40) U/l Alkaline Phosphatase 65 (39-117) U/L Total Protein 4.6 L (5.9-8.4) gm/dL Albumin 2.4 L (3.2-5.2) gm/dL Assessment and Plan (1) Small bowel obstruction, partial Status: Resolved Assessment and plan: ileostomy output better Current Visit: Yes (2) Recurrent intestinal obstruction Problem details: many recurrences; many surgical interventions Status: Chronic Assessment and plan: discussed with Pharmacy kalyn start Methylnaltrexone ABD less distended today ileostomy working better Current Visit: Yes (3) Chronic intestinal pseudo-obstruction Status: Chronic Assessment and plan: Continue conservative management for now Current Visit: Yes (4) Electrolyte abnormality Status: Resolved Assessment and plan: resolving Current Visit: Yes (5) Hypocalcemia Status: Resolved Assessment and plan: replacement as needed Current Visit: Yes - Time Spent With Patient Total time spent is greater than 50% in coordination of care (as documented) at patient's floor/unit and/or counseling patient: 15 - 24 minutes (will advance diet to full liquids, probably can D/C tomorrow)
[2020-01-27] MEDS: CYCLOBENZAPRINE 10 MG TABLET PO PRN (07:50)
[2020-01-27] MEDS: ACETAMINOPHEN 325 MG TABLET PO PRN (07:50)
[2020-01-27] MEDS: predniSONE 20 MG TABLET PO SCH (07:50)
[2020-01-27] MEDS: metFORMIN 500 MG TABLET PO SCH (07:50)
[2020-01-27] MEDS: CALCITRIOL 0.25 MCG CAPSULE PO SCH ×3 (09:06→21:19)
[2020-01-27] MEDS: DULoxetine 30 MG CAPSULE PO SCH ×2 (09:06→21:19)
[2020-01-27] MEDS: MAGNESIUM OXIDE 400 MG TABLET PO SCH ×2 (09:06→21:18)
[2020-01-27] MEDS: ERYTHROMYCIN BASE 250 MG TABLET PO SCH ×4 (09:07→21:24)
[2020-01-27] MEDS: POLYETHYLENE GLYCOL 3350 17 GM PACKET PO SCH ×4 (09:08→21:17)
[2020-01-27] MEDS: INSULIN GLARGINE, HUMAN 1 UNIT/0.01 ML SQ SCH ×2 (10:55→21:17)
[2020-01-27] MEDS: HYDROmorphone 2 MG/ML VIAL IV PRN ×2 (14:35→17:53)
[2020-01-27] MEDS: ONDANSETRON 4 MG/2 ML VIAL IV PRN (18:45)
[2020-01-27] MEDS: PROMETHAZINE 25 MG/ML VIAL IV PRN (21:16)
[2020-01-28] MEDS: DEXTROSE 5%-1/2NS W/20MEQ KCL 1,000 ML IV SCH (02:47)
[2020-01-28] MEDS: PYRIDOSTIGMINE BROMIDE 10 MG/2 ML ML IM SCH (06:27)
[2020-01-28] MEDS: LEVOTHYROXINE 125 MCG TABLET PO SCH (06:56)
[2020-01-28] MEDS: HYDROmorphone 2 MG/ML VIAL IV PRN (06:56)
[2020-01-28] MEDS: ONDANSETRON 4 MG/2 ML VIAL IV PRN (06:56)
[2020-01-28] MEDS: INSULIN LISPRO 1 UNIT/0.01 ML UNIT SQ SCH (07:29)
--- NOTE | 2020-01-28 08:25 | General Surgery Progress Note ---
Subjective Narrative: Note initiated : 01/28/20 at 8:23 am Service Date, if different from initiated Date: [] Patient: Dayanna Guo a 59 y/o F admitted on 01/18/20 for Vomiting, Dehydration. Chief Complaint: [] ileostomy out put less again after starting full liquids. Objective Temp Pulse Resp BP Pulse Ox 98.0 F 95 H 12 156/77 94 01/28/20 02:47 01/28/20 02:47 01/28/20 02:47 01/28/20 02:47 01/28/20 02:47 - Additional Data Intake & Output - Last 24 hours: Intake & Output 01/26/20 01/27/20 01/28/20 01/29/20 05:59 05:59 05:59 05:59 Intake Total 2120 5260 3660 Output Total 3200 2925 3575 Balance -1080 2335 85 Weight 218 lb 219 lb 218 lb - General physical appearance well developed, well nourished, obese - Respiratory normal respiratory effort, clear to percussion, clear to auscultation - Cardiovascular Cardiovascular exam: Present: normal rate and rhythm (ileostomy out put less, she c/o more pain in LLQ) - Labs 01/25/20 05:13 01/27/20 05:20 Assessment and Plan (1) Small bowel obstruction, partial Status: Resolved Assessment and plan: ileostomy output better Current Visit: Yes (2) Recurrent intestinal obstruction Problem details: many recurrences; many surgical interventions Status: Chronic Assessment and plan: discussed with Pharmacy kalyn start Methylnaltrexone ABD less distended today ileostomy working better Current Visit: Yes (3) Chronic intestinal pseudo-obstruction Status: Chronic Assessment and plan: Continue conservative management for now Current Visit: Yes (4) Electrolyte abnormality Status: Resolved Assessment and plan: resolving Current Visit: Yes (5) Hypocalcemia Status: Resolved Assessment and plan: replacement as needed Current Visit: Yes - Time Spent With Patient Total time spent is greater than 50% in coordination of care (as documented) at patient's floor/unit and/or counseling patient:
--- NOTE | 2020-01-28 08:57 | XRay Report ---
CLINICAL INFORMATION:Chronic pseudoobstruction TECHNIQUE: Supine and upright abdomen. COMPARISON: Multiple previous examinations. Most recent previous plain film examination is dated 01/23/2020 FINDINGS:Patient has undergone previous total colectomy. Persistent gas-filled dilated small bowel. Cross-sectional diameter measures approximately 7 cm maximally. Radiographic appearance is essentially unchanged since 01/23/2020. There are associated air-fluid levels. There is no pneumoperitoneum. No biliary or portal venous gas. No pneumatosis. IMPRESSION: 1. Persistent gaseous distention of small bowel 2. No significant interval change since 01/23/2020 Interpreted and Authenticated by: All Cormier 01/28/20
[2020-01-28] MEDS: DULoxetine 30 MG CAPSULE PO SCH (08:59)
[2020-01-28] MEDS: metFORMIN 500 MG TABLET PO SCH (08:59)
[2020-01-28] MEDS: predniSONE 20 MG TABLET PO SCH (08:59)
[2020-01-28] MEDS: MAGNESIUM OXIDE 400 MG TABLET PO SCH (08:59)
[2020-01-28] MEDS: POLYETHYLENE GLYCOL 3350 17 GM PACKET PO SCH (08:59)
[2020-01-28] MEDS: CALCITRIOL 0.25 MCG CAPSULE PO SCH (08:59)
[2020-01-28] MEDS: ERYTHROMYCIN BASE 250 MG TABLET PO SCH (08:59)
[2020-01-28] MEDS: INSULIN GLARGINE, HUMAN 1 UNIT/0.01 ML SQ SCH (09:02)
--- NOTE | 2020-01-28 10:40 | Discharge Summary ---
Providers - Providers Patient information: Note initiated : 01/28/20 at 10:38 am Service Date, if different from initiated Date: [] Patient: Dayanna Guo 59 y/o F admitted on 01/18/20 for Vomiting, Dehydration. Chief Complaint: [] Discharge date: 01/28/20 Attending physician: Gus Mcdowell Hospitalization Discharge diagnosis: Intestinal Pseudo-obstruction, Chronic Secondary discharge diagnosis: Continuous use of narcotics Narcotic bowel Reason for admission: partial small bowel obstruction Pertinent studies/significant findings: multiple abdominal x-rays Complications: none Exam Temp Pulse Resp BP Pulse Ox 98.2 F 92 H 12 135/85 94 01/28/20 08:00 01/28/20 08:00 01/28/20 08:00 01/28/20 08:00 01/28/20 08:00 - General physical appearance well developed, well nourished, obese - Eyes normal ocular movement. negative: icteric, loss of movement - ENT no hearing loss, no congestion. negative: decreased hearing - Neck no masses, no bruits, trachea midline - Cardiovascular Cardiovascular exam IM: Present: normal rate and rhythm - Respiratory normal expansion, normal respiratory effort, clear to percussion, clear to auscultation - Abdomen Abdomen: Present: soft, non tender, bowel sounds, distended - Genitourinary Present: normal external genitalia - Integumentary Present: no rash, no growths - Neurologic Present: normal coordination, normal sensation Discharge Plan - Patient/Caregiver Discharge Instructions Activity: increase activity as tolerated Diet: Regular Diet (increased liquids in diet), Low Fiber, Full Liquid - Follow up Plan Follow up with: Douglas Haque MD [Primary Care Provider] - Disposition: Home, Self-Care Prognosis: Good Rehab Potential: Good I certify that the patient requires SNF services.: No Pending Studies Resuscitation Status Full Code Diet Full Liquid Diet Start SatJan 26 0950 Acetaminophen (Tylenol) 650 mg PO Q6HP PRN; Protocol PRN Reason: PAIN/FEVER > 101 Last Admin: 01/27/20 07:50 Dose: 650 mg Documented by: Admin: 01/20/20 13:58 Dose: 650 mg Documented by: Admin: 01/20/20 05:34 Dose: 650 mg Documented by: Admin: 01/19/20 23:40 Dose: 650 mg Documented by: Admin: 01/19/20 11:06 Dose: 650 mg Documented by: ZACHARY Acetaminophen/Codeine Phosphate (Tylenol #3) 1 - 2 tab PO Q4HP PRN; Protocol PRN Reason: Per Pain Protocol Last Admin: 01/27/20 21:18 Dose: 2 tab Documented by: Admin: 01/27/20 16:00 Dose: 2 tab Documented by: Admin: 01/27/20 12:13 Dose: 1 tab Documented by: Admin: 01/27/20 05:57 Dose: 1 tab Documented by: Admin: 01/27/20 04:03 Dose: 1 tab Documented by: Admin: 01/27/20 01:57 Dose: 1 tab Documented by: Admin: 01/27/20 00:02 Dose: 1 tab Documented by: Admin: 01/26/20 22:00 Dose: 1 tab Documented by: STEVEN Benzocaine (Cetacaine) 1 spray TOPICAL PRN PRN PRN Reason: Mouth Irritation Last Admin: 01/25/20 00:03 Dose: 1 dose Documented by: Admin: 01/24/20 21:18 Dose: 1 dose Documented by: STEVEN Calcitriol (Rocaltrol) 0.5 mcg PO TID MALENA Last Admin: 01/28/20 08:59 Dose: 0.5 mcg Documented by: Admin: 01/27/20 21:19 Dose: 0.5 mcg Documented by: Admin: 01/27/20 15:07 Dose: 0.5 mcg Documented by: Admin: 01/27/20 09:06 Dose: 0.5 mcg Documented by: Admin: 01/26/20 21:59 Dose: 0.5 mcg Documented by: Admin: 01/26/20 15:13 Dose: 0.5 mcg Documented by: Admin: 01/26/20 12:29 Dose: Not Given Documented by: [email or web address] Admin: 01/25/20 19:51 Dose: 0.5 mcg Documented by: Admin: 01/25/20 15:17 Dose: 0.5 mcg Documented by: Admin: 01/25/20 11:27 Dose: 0.5 mcg Documented by: Admin: 01/24/20 21:05 Dose: Not Given Documented by: Admin: 01/24/20 15:46 Dose: Not Given Documented by: Admin: 01/24/20 11:55 Dose: Not Given Documented by: [email or web address] Admin: 01/23/20 20:38 Dose: 0.5 mcg Documented by: Admin: 01/23/20 14:58 Dose: 0.5 mcg Documented by: Admin: 01/23/20 09:34 Dose: 0.5 mcg Documented by: Admin: 01/22/20 20:32 Dose: 0.5 mcg Documented by: Admin: 01/22/20 15:08 Dose: 0.5 mcg Documented by: Admin: 01/22/20 09:32 Dose: 0.5 mcg Documented by: Admin: 01/21/20 21:52 Dose: 0.5 mcg Documented by: Admin: 01/21/20 15:24 Dose: 0.5 mcg Documented by: Admin: 01/21/20 09:40 Dose: 0.5 mcg Documented by: Admin: 01/20/20 20:47 Dose: 0.5 mcg Documented by: Admin: 01/20/20 15:51 Dose: 0.5 mcg Documented by: Admin: 01/20/20 09:13 Dose: 0.5 mcg Documented by: Admin: 01/19/20 21:05 Dose: 0.5 mcg Documented by: Admin: 01/19/20 16:07 Dose: 0.5 mcg Documented by: ZACHARY Cyclobenzaprine HCl (Flexeril) 10 mg PO BIDP PRN PRN Reason: Spasms Last Admin: 01/27/20 07:50 Dose: 10 mg Documented by: Admin: 01/26/20 21:59 Dose: 10 mg Documented by: Admin: 01/20/20 12:00 Dose: 10 mg Documented by: Admin: 01/20/20 03:51 Dose: 10 mg Documented by: Admin: 01/19/20 18:02 Dose: 10 mg Documented by: KENTRELLSON Diagnostic Test (Pha) (Accu-Chek) 1 each FS ACHS MALENA; Protocol Last Admin: 01/28/20 07:28 Dose: 1 each Documented by: Admin: 01/27/20 21:19 Dose: 1 each Documented by: Admin: 01/27/20 17:00 Dose: 1 each Documented by: Sugar Admin: 01/27/20 11:20 Dose: 1 each Documented by: Admin: 01/27/20 07:10 Dose: 1 each Documented by: Admin: 01/26/20 21:43 Dose: 1 each Documented by: Admin: 01/26/20 16:41 Dose: 1 each Documented by: Admin: 01/26/20 12:37 Dose: 1 each Documented by: Admin: 01/26/20 07:38 Dose: 1 each Documented by: Admin: 01/25/20 20:00 Dose: 1 each Documented by: Admin: 01/25/20 17:44 Dose: 1 each Documented by: Admin: 01/25/20 11:41 Dose: 1 each Documented by: Admin: 01/25/20 07:09 Dose: 1 each Documented by: Admin: 01/24/20 21:04 Dose: 1 each Documented by: Admin: 01/24/20 18:17 Dose: 1 each Documented by: [email or web address] Admin: 01/24/20 14:36 Dose: 1 each Documented by: Admin: 01/24/20 07:40 Dose: 1 each Documented by: [email or web address] Admin: 01/23/20 20:23 Dose: 1 each Documented by: Admin: 01/23/20 16:53 Dose: 1 each Documented by: Admin: 01/23/20 13:21 Dose: 1 each Documented by: Admin: 01/23/20 07:52 Dose: 1 each Documented by: Admin: 01/22/20 20:32 Dose: 1 each Documented by: Admin: 01/22/20 16:53 Dose: 1 each Documented by: Admin: 01/22/20 11:42 Dose: 1 each Documented by: Admin: 01/22/20 07:35 Dose: 1 each Documented by: Admin: 01/21/20 21:41 Dose: 1 each Documented by: Admin: 01/21/20 17:11 Dose: 1 each Documented by: Admin: 01/21/20 11:29 Dose: 1 each Documented by: Admin: 01/21/20 08:01 Dose: 1 each Documented by: Admin: 01/20/20 20:49 Dose: 1 each Documented by: Admin: 01/20/20 17:17 Dose: 1 each Documented by: Admin: 01/20/20 11:25 Dose: 1 each Documented by: Admin: 01/20/20 07:37 Dose: 1 each Documented by: Admin: 01/19/20 20:50 Dose: 1 each Documented by: Admin: 01/19/20 16:45 Dose: 1 each Documented by: ZACHARY Duloxetine HCl (Cymbalta) 30 mg PO BID [facility] Admin: 01/28/20 08:59 Dose: 30 mg Documented by: Admin: 01/27/20 21:19 Dose: 30 mg Documented by: Admin: 01/27/20 09:06 Dose: 30 mg Documented by: Admin: 01/26/20 22:03 Dose: 30 mg Documented by: Admin: 01/26/20 12:35 Dose: 30 mg Documented by: Admin: 01/25/20 19:51 Dose: 30 mg Documented by: Admin: 01/25/20 11:27 Dose: 30 mg Documented by: Admin: 01/24/20 21:04 Dose: Not Given Documented by: Admin: 01/24/20 11:53 Dose: Not Given Documented by: Admin: 01/23/20 20:38 Dose: 30 mg Documented by: Admin: 01/23/20 09:15 Dose: 30 mg Documented by: Admin: 01/22/20 20:32 Dose: 30 mg Documented by: Admin: 01/22/20 09:32 Dose: 30 mg Documented by: Admin: 01/21/20 21:51 Dose: 30 mg Documented by: Admin: 01/21/20 09:41 Dose: 30 mg Documented by: Admin: 01/20/20 20:47 Dose: 30 mg Documented by: Admin: 01/20/20 09:13 Dose: 30 mg Documented by: Admin: 01/19/20 20:54 Dose: 30 mg Documented by: SHAYNA Erythromycin (Erythromycin) 250 mg PO QID [facility] hospital Admin: 01/28/20 08:59 Dose: 250 mg Documented by: Admin: 01/27/20 21:24 Dose: 250 mg Documented by: Admin: 01/27/20 17:53 Dose: 250 mg Documented by: Admin: 01/27/20 12:07 Dose: 250 mg Documented by: Admin: 01/27/20 09:07 Dose: 250 mg Documented by: Admin: 01/26/20 21:59 Dose: 250 mg Documented by: Admin: 01/26/20 16:48 Dose: 250 mg Documented by: Admin: 01/26/20 12:35 Dose: 250 mg Documented by: [email or web address] Admin: 01/26/20 10:14 Dose: 250 mg Documented by: [email or web address] Admin: 01/25/20 20:00 Dose: 250 mg Documented by: Admin: 01/25/20 17:04 Dose: Not Given Documented by: [email or web address] Admin: 01/25/20 15:16 Dose: 250 mg Documented by: Admin: 01/25/20 11:27 Dose: 250 mg Documented by: Admin: 01/24/20 21:04 Dose: Not Given Documented by: Admin: 01/24/20 16:57 Dose: Not Given Documented by: [email or web address] Admin: 01/24/20 14:47 Dose: Not Given Documented by: [email or web address] Admin: 01/24/20 11:54 Dose: Not Given Documented by: [email or web address] Admin: 01/23/20 20:37 Dose: 250 mg Documented by: Admin: 01/23/20 16:53 Dose: 250 mg Documented by: Admin: 01/23/20 14:58 Dose: 250 mg Documented by: Admin: 01/23/20 09:16 Dose: 250 mg Documented by: Admin: 01/22/20 20:32 Dose: 250 mg Documented by: Admin: 01/22/20 17:13 Dose: 250 mg Documented by: Admin: 01/22/20 13:47 Dose: 250 mg Documented by: Admin: 01/22/20 10:25 Dose: 250 mg Documented by: Admin: 01/21/20 21:51 Dose: 250 mg Documented by: Admin: 01/21/20 17:10 Dose: 250 mg Documented by: Admin: 01/21/20 14:11 Dose: 250 mg Documented by: Admin: 01/21/20 09:40 Dose: 250 mg Documented by: Admin: 01/20/20 21:24 Dose: 250 mg Documented by: Admin: 01/20/20 17:37 Dose: 250 mg Documented by: Admin: 01/20/20 12:39 Dose: 250 mg Documented by: Admin: 01/20/20 10:14 Dose: 250 mg Documented by: CAREY Insulin Glargine (Lantus) 5 unit SQ BID MALENA [facility] Admin: 01/28/20 09:02 Dose: Not Given Documented by: Admin: 01/27/20 21:17 Dose: 5 units Documented by: Admin: 01/27/20 10:55 Dose: Not Given Documented by: Admin: 01/26/20 21:57 Dose: 5 units Documented by: Admin: 01/26/20 12:29 Dose: Not Given Documented by: Admin: 01/25/20 20:04 Dose: 5 units Documented by: Admin: 01/25/20 11:30 Dose: 5 units Documented by: Admin: 01/24/20 21:05 Dose: Not Given Documented by: Admin: 01/24/20 11:54 Dose: Not Given Documented by: Admin: 01/23/20 20:37 Dose: 5 units Documented by: Admin: 01/23/20 09:16 Dose: 5 units Documented by: Admin: 01/22/20 20:32 Dose: 5 units Documented by: Admin: 01/22/20 09:38 Dose: 5 units Documented by: Admin: 01/21/20 21:51 Dose: 5 units Documented by: Admin: 01/21/20 09:41 Dose: 5 units Documented by: Admin: 01/20/20 20:50 Dose: 5 units Documented by: Admin: 01/20/20 09:14 Dose: 5 units Documented by: Admin: 01/19/20 20:50 Dose: 5 units Documented by: SHAYNA Insulin Human Lispro (Humalog) 0 unit SQ ACHS COUNTS INCLUDE 234 BEDS AT [facility]; Protocol Last Admin: 01/28/20 07:29 Dose: Not Given Documented by: [facility] Admin: 01/27/20 21:19 Dose: Not Given Documented by: Admin: 01/27/20 17:02 Dose: Not Given Documented by: [facility] Admin: 01/27/20 11:22 Dose: 2 unit Documented by: [facility] Admin: 01/27/20 07:12 Dose: Not Given Documented by: Sugar Admin: 01/26/20 21:43 Dose: Not Given Documented by: Admin: 01/26/20 16:48 Dose: 1 unit Documented by: Admin: 01/26/20 12:28 Dose: Not Given Documented by: [email or web address] Admin: 01/26/20 12:16 Dose: Not Given Documented by: [email or web address] Admin: 01/25/20 20:01 Dose: Not Given Documented by: Admin: 01/25/20 17:44 Dose: Not Given Documented by: [email or web address] Admin: 01/25/20 11:42 Dose: Not Given Documented by: Admin: 01/25/20 08:50 Dose: Not Given Documented by: Admin: 01/24/20 21:05 Dose: Not Given Documented by: Admin: 01/24/20 18:17 Dose: Not Given Documented by: [email or web address] Admin: 01/24/20 14:40 Dose: Not Given Documented by: [email or web address] Admin: 01/24/20 07:41 Dose: Not Given Documented by: [email or web address] Admin: 01/23/20 20:38 Dose: Not Given Documented by: Admin: 01/23/20 17:59 Dose: 2 unit Documented by: Admin: 01/23/20 12:39 Dose: Not Given Documented by: [email or web address] Admin: 01/23/20 07:52 Dose: 1 unit Documented by: Admin: 01/22/20 20:33 Dose: Not Given Documented by: Admin: 01/22/20 17:14 Dose: 2 unit Documented by: Admin: 01/22/20 11:46 Dose: Not Given Documented by: Admin: 01/22/20 07:39 Dose: Not Given Documented by: Admin: 01/21/20 21:43 Dose: Not Given Documented by: Admin: 01/21/20 17:10 Dose: Not Given Documented by: Admin: 01/21/20 11:30 Dose: Not Given Documented by: Admin: 01/21/20 08:11 Dose: 1 unit Documented by: Admin: 01/20/20 20:57 Dose: 2 unit Documented by: Admin: 01/20/20 17:18 Dose: Not Given Documented by: Admin: 01/20/20 11:26 Dose: Not Given Documented by: Admin: 01/20/20 07:41 Dose: Not Given Documented by: Admin: 01/19/20 20:59 Dose: Not Given Documented by: Admin: 01/19/20 17:18 Dose: 2 unit Documented by: ZACHARY [facility] 01/28/20 06:56 Dose: 250 mcg Documented by: Admin: 01/27/20 07:10 Dose: 250 mcg Documented by: Admin: 01/26/20 10:13 Dose: 250 mcg Documented by: [email or web address] Admin: 01/25/20 11:29 Dose: 250 mcg Documented by: [email or web address] Admin: 01/24/20 11:52 Dose: Not Given Documented by: [email or web address] Admin: 01/23/20 07:52 Dose: 250 mcg Documented by: Admin: 01/22/20 07:45 Dose: 250 mcg Documented by: Admin: 01/21/20 09:40 Dose: 250 mcg Documented by: Admin: 01/20/20 09:13 Dose: 250 mcg Documented by: CAREY Magnesium Oxide (Magnesium Oxide) 400 mg PO BID COUNTS INCLUDE 234 BEDS AT [facility] Last Admin: 01/28/20 08:59 Dose: 400 mg Documented by: Admin: 01/27/20 21:18 Dose: 400 mg Documented by: Admin: 01/27/20 09:06 Dose: 400 mg Documented by: Admin: 01/26/20 22:00 Dose: 400 mg Documented by: Admin: 01/26/20 12:37 Dose: 400 mg Documented by: Admin: 01/25/20 19:51 Dose: 400 mg Documented by: Admin: 01/25/20 11:27 Dose: 400 mg Documented by: Admin: 01/24/20 21:05 Dose: Not Given Documented by: Admin: 01/24/20 11:54 Dose: Not Given Documented by: [email or web address] Admin: 01/23/20 20:38 Dose: 400 mg Documented by: Admin: 01/23/20 09:15 Dose: 400 mg Documented by: [email or web address] Admin: 01/22/20 20:32 Dose: 400 mg Documented by: Admin: 01/22/20 09:32 Dose: 400 mg Documented by: Admin: 01/21/20 21:51 Dose: 400 mg Documented by: Admin: 01/21/20 09:41 Dose: 400 mg Documented by: Admin: 01/20/20 20:47 Dose: 400 mg Documented by: Admin: 01/20/20 09:13 Dose: 400 mg Documented by: Admin: 01/19/20 20:54 Dose: 400 mg Documented by: SHAYNA Metformin [facility] (Glucophage) [facility] Last Admin: 01/28/20 08:59 Dose: 500 mg Documented by: Admin: 01/27/20 07:50 Dose: 500 mg Documented by: Admin: 01/26/20 12:36 Dose: 500 mg Documented by: [email or web address] Admin: 01/25/20 11:28 Dose: 500 mg Documented by: Admin: 01/24/20 11:53 Dose: Not Given Documented by: [email or web address] Admin: 01/23/20 07:52 Dose: 500 mg Documented by: Admin: 01/22/20 07:45 Dose: 500 mg Documented by: Admin: 01/21/20 09:40 Dose: 500 mg Documented by: Admin: 01/20/20 09:13 Dose: 500 mg Documented by: CAREY Ondansetron HCl (Zofran) 4 mg IV Q4HP PRN PRN Reason: Nausea And Vomiting Last Admin: 01/28/20 06:56 Dose: 4 mg Documented by: Admin: 01/27/20 18:45 Dose: 4 mg Documented by: Admin: 01/26/20 04:15 Dose: 4 mg Documented by: Admin: 01/25/20 18:05 Dose: 4 mg Documented by: Admin: 01/24/20 12:16 Dose: 4 mg Documented by: Admin: 01/24/20 04:31 Dose: 4 mg Documented by: Admin: 01/23/20 23:57 Dose: 4 mg Documented by: Admin: 01/23/20 18:45 Dose: 4 mg Documented by: Admin: 01/23/20 06:04 Dose: 4 mg Documented by: Admin: 01/22/20 20:32 Dose: 4 mg Documented by: Admin: 01/22/20 01:36 Dose: 4 mg Documented by: Admin: 01/21/20 21:58 Dose: 4 mg Documented by: Admin: 01/21/20 07:55 Dose: 4 mg Documented by: Admin: 01/20/20 23:45 Dose: 4 mg Documented by: BRITTNI Ondansetron HCl (Zofran Odt) 4 mg SL Q4HP PRN PRN Reason: Nausea Last Admin: 01/27/20 05:56 Dose: 4 mg Documented by: Admin: 01/27/20 00:02 Dose: 4 mg Documented by: STEVEN Polyethylene Glycol (Miralax) 17 gm PO QID COUNTS INCLUDE 234 BEDS AT [facility] Last Admin: 01/28/20 08:59 Dose: 17 gm Documented by: Admin: 01/27/20 21:17 Dose: 17 gm Documented by: Admin: 01/27/20 17:52 Dose: 17 gm Documented by: Admin: 01/27/20 12:07 Dose: 17 gm Documented by: Admin: 01/27/20 09:08 Dose: 17 gm Documented by: Admin: 01/26/20 21:57 Dose: 17 gm Documented by: Admin: 01/26/20 16:48 Dose: 17 gm Documented by: Admin: 01/26/20 12:31 Dose: 17 gm Documented by: Admin: 01/26/20 10:14 Dose: 17 gm Documented by: Admin: 01/25/20 19:51 Dose: 17 gm Documented by: Admin: 01/25/20 17:03 Dose: Not Given Documented by: Admin: 01/25/20 15:16 Dose: 17 gm Documented by: Admin: 01/25/20 11:26 Dose: 17 gm Documented by: Admin: 01/24/20 21:05 Dose: Not Given Documented by: Admin: 01/24/20 16:57 Dose: Not Given Documented by: Admin: 01/24/20 14:47 Dose: Not Given Documented by: Admin: 01/24/20 11:55 Dose: Not Given Documented by: Admin: 01/23/20 20:37 Dose: 17 gm Documented by: Admin: 01/23/20 16:54 Dose: Not Given Documented by: Admin: 01/23/20 14:58 Dose: 17 gm Documented by: [email or web address] Admin: 01/23/20 09:14 Dose: 17 gm Documented by: [email or web address] Prednisone (Prednisone) [facility] Last Admin: 01/28/20 08:59 Dose: 20 mg Documented by: Admin: 01/27/20 07:50 Dose: 20 mg Documented by: Admin: 01/26/20 10:14 Dose: 20 mg Documented by: Admin: 01/25/20 11:28 Dose: 20 mg Documented by: Admin: 01/24/20 11:53 Dose: Not Given Documented by: Admin: 01/23/20 07:52 Dose: 20 mg Documented by: Admin: 01/22/20 07:45 Dose: 20 mg Documented by: Admin: 01/21/20 09:41 Dose: 20 mg Documented by: Admin: 01/20/20 09:13 Dose: 20 mg Documented by: CAREY Promethazine HCl (Phenergan) 25 mg IV Q6HP PRN PRN Reason: Nausea And Vomiting Last Admin: 01/27/20 21:16 Dose: 25 mg Documented by: Admin: 01/26/20 07:20 Dose: 25 mg Documented by: Admin: 01/24/20 14:54 Dose: 25 mg Documented by: Admin: 01/24/20 07:01 Dose: 25 mg Documented by: Admin: 01/23/20 20:38 Dose: 25 mg Documented by: Admin: 01/23/20 09:34 Dose: 25 mg Documented by: Admin: 01/23/20 01:29 Dose: 25 mg Documented by: Admin: 01/22/20 02:24 Dose: 25 mg Documented by: JOSE Promethazine HCl (Phenergan) 25 mg PO Q6HP PRN PRN Reason: Nausea Last Admin: 01/19/20 23:40 Dose: 25 mg Documented by: Admin: 01/19/20 14:20 Dose: 25 mg Documented by: ZACHARY Pyridostigmine Streeter (Regonol) 10 mg IM Q6H MALENA Last Admin: 01/28/20 06:27 Dose: 10 mg Documented by: Admin: 01/27/20 23:58 Dose: 10 mg Documented by: Admin: 01/27/20 17:53 Dose: 10 mg Documented by: Admin: 01/27/20 12:07 Dose: 10 mg Documented by: Admin: 01/27/20 05:57 Dose: 10 mg Documented by: Admin: 01/27/20 00:01 Dose: 10 mg Documented by: Admin: 01/26/20 17:22 Dose: 10 mg Documented by: Admin: 01/26/20 12:30 Dose: 10 mg Documented by: Admin: 01/26/20 05:39 Dose: 10 mg Documented by: Admin: 01/25/20 23:42 Dose: 10 mg Documented by: Admin: 01/25/20 17:44 Dose: 10 mg Documented by: Admin: 01/25/20 12:36 Dose: 10 mg Documented by: Admin: 01/25/20 06:08 Dose: 10 mg Documented by: Admin: 01/25/20 00:05 Dose: 10 mg Documented by: Admin: 01/24/20 18:15 Dose: 10 mg Documented by: Admin: 01/24/20 14:40 Dose: 10 mg Documented by: Admin: 01/24/20 06:22 Dose: 10 mg Documented by: Admin: 01/23/20 23:50 Dose: 10 mg Documented by: Admin: 01/23/20 18:01 Dose: 10 mg Documented by: Admin: 01/23/20 13:20 Dose: 10 mg Documented by: Admin: 01/23/20 06:04 Dose: 10 mg Documented by: Admin: 01/22/20 23:54 Dose: 10 mg Documented by: Admin: 01/22/20 17:16 Dose: 10 mg Documented by: Admin: 01/22/20 11:40 Dose: 10 mg Documented by: Admin: 01/22/20 05:57 Dose: 10 mg Documented by: Admin: 01/22/20 00:23 Dose: 10 mg Documented by: Admin: 01/21/20 17:10 Dose: 10 mg Documented by: Admin: 01/21/20 14:10 Dose: 10 mg Documented by: Admin: 01/21/20 06:21 Dose: 10 mg Documented by: Admin: 01/20/20 23:26 Dose: 10 mg Documented by: Admin: 01/20/20 17:38 Dose: 10 mg Documented by: Admin: 01/20/20 12:39 Dose: 10 mg Documented by: Admin: 01/20/20 05:35 Dose: 10 mg Documented by: Admin: 01/19/20 23:30 Dose: 10 mg Documented by: Admin: 01/19/20 18:02 Dose: 10 mg Documented by: Admin: 01/19/20 13:21 Dose: 10 mg Documented by: ZACHARY Shift Summary 01/28/20 03:16 Shift Summary by Yolis Trent Patient alert and oriented x4. Slept well this shift. Given zofran and phenergan for nausea with good effect. Also medicated with Tylenol #3 2 tabs x1. On full liquid diet. No vomiting this shift. On scheduled Miralax. RUQ ostomy draining brown, liquid stool. Uses bedside commode. Independent with ostmy cares. BSL 135 at HS. IVF D51/2 NS+20 meqKCL infusing well at 125 mls via left chest portacath. IN 90's-100's bpm. Initialized on 01/28/20 03:16 - END OF NOTE
[2020-01-28] MEDS ORDERED: HEPARIN SODIUM,PORCINE/PF 500 UNIT/5 ML SYRINGE IV ONE (10:52)
== END 2020-01-28 11:15 | disposition home or self-care (01) | DRG 392 ==
LOC: ED 20:57 → MEDSUR 23:14
PROVIDERS: ADMIT Specialist; ATTEND Specialist

== ENCOUNTER 2020-02-01 01:38 | Inpatient (IN) ==
[2020-02-01] MEDS ORDERED: ONDANSETRON 4 MG/2 ML VIAL IV ONE (02:09)
[2020-02-01] MEDS ORDERED: LACTATED RINGERS 1,000 ML IV ONE ×2 (02:09→16:43)
[2020-02-01] MEDS ORDERED: HYDROmorphone* 2 MG/ML VIAL IV SCH (02:15)
[2020-02-01 03:07] LABS: Basophils # (Auto) 0.04 K/mcL (0.00-0.30); Basophils % (Auto) 0.4 % (0.0-2.0); Eosinophils # (Auto) 0.13 K/mcL (0.00-0.70); Eosinophils % (Auto) 1.1 % (0.0-7.0); Hematocrit 40.8 % (34.1-44.9); Hemoglobin 13.2 g/dL (11.2-15.7); Lymphocytes # (Auto) 2.25 K/mcL (1.50-4.80); Lymphocytes % (Auto) 19.9 % (15.5-49.0); Mean Cell Volume 85.7 fL (80.0-100.0); Mean Corpuscular HGB Conc 32.4 g/dL (31.0-36.0); Mean Platelet Volume 8.9 fL (7.4-10.4); Monocytes % (Auto) 10.6 % (1.0-12.0); Platelet Count 365 K/mcL (140-440); RBC 4.76 M/mcL (3.59-5.38); Red Cell Distribution Width 13.7 % (11.5-14.5); WBC 11.3 K/mcL (4.50-11.00)
[2020-02-01 03:12] LABS: ALT/SGPT 20 U/l (0-40); AST/SGOT 17 U/l (0-37); Albumin 2.7 gm/dL (3.2-5.2); Alkaline Phosphatase 96 U/L (39-117); Bilirubin,Total 0.4 mg/dL (0.0-1.0); Blood Urea Nitrogen 13 mg/dl (6-20); Calcium 6.5 mg/dl (8.6-10.4); Carbon Dioxide 28 mmol/L (22-30); Globulin 2.8 gm/dL (2.2-3.7); Glomerular Filtration Rate 96; Glucose 177 mg/dL (70-105)
[2020-02-01 03:19] LABS: Chloride 88 mmol/L (96-108)
[2020-02-01] MEDS ORDERED: HYDROmorphone* 2 MG/ML VIAL ONE (04:39)
[2020-02-01] MEDS: HYDROmorphone* 2 MG/ML VIAL IV PRN ×8 (04:40→21:01)
--- NOTE | 2020-02-01 06:07 | XRay Report ---
INDICATION: NG tube placement TECHNIQUE: Supine abdomen. COMPARISON: Multiple previous examinations. Most recent previous plain film studies are dated 01/31/2020, 01/29/2020 FINDINGS:Interval placement of an esophagogastric tube. Tip of the catheter is curled and is in the gastric fundus. There is gaseous gastric distention. There is small bowel dilatation. Small bowel is not visualized consistent entirety. IMPRESSION: Esophagogastric tube in the gastric fundus Interpreted and Authenticated by: All Cormier 02/01/20
[2020-02-01] MEDS: LACTATED RINGERS 1,000 ML IV SCH ×5 (06:47→23:27)
--- NOTE | 2020-02-01 08:14 | Emergency Department Note ---
Abdominal Pain HPI - General Chief Complaint: Abdominal Pain Stated Complaint: Abdominal Pain Time Seen by Provider: 02/01/20 02:05 Source: patient Mode of arrival: wheelchair Limitations: no limitations - History of Present Illness HPI Narrative: This patient returns the room with abdominal pain and bloating. She was seen earlier in the day and treated with IV medications for pain and nausea and hydrated and felt better after that. However tonight she is gotten quite it worse and is requesting an NG tube. She was recently discharged from the [facility] with an intestinal pseudoobstruction. She does have a colostomy in her right lower quadrant. - Related Data Home Medications Medication Instructions Recorded Confirmed DULoxetine [Cymbalta] 30 mg PO BID 11/30/16 02/01/20 Levothyroxine [Synthroid] 250 mcg PO QAMAC 08/20/17 02/01/20 Calcitriol [Rocaltrol] 0.5 mcg PO TID 02/11/19 02/01/20 Insulin Glargine, Human [Lantus] 5 unit SQ BID 09/30/19 02/01/20 Cyclobenzaprine [Flexeril] 10 mg PO BIDP PRN 12/13/19 02/01/20 Magnesium Oxide [Magnesium] 500 mg PO BID 12/13/19 02/01/20 Ondansetron [Zofran ODT] 4 mg SL Q4HP PRN 12/24/19 02/01/20 Promethazine [Phenergan] 25 mg [place] Q6HP PRN 12/24/19 02/01/20 Previous Rx's Medication Instructions Recorded predniSONE [Prednisone] 20 mg PO [facility] #4 tab 05/18/16 metFORMIN HCL [Metformin HCl] 500 mg PO DAILY #30 tab 10/17/18 Promethazine [Phenergan] 25 mg PO Q6HP PRN #60 tab 02/13/19 Acetaminophen [Tylenol] 650 mg PO Q6HP PRN tab 10/05/19 Accu-Chek 1 each FS ACHS strip 12/03/19 erythromycin 250 mg tablet,delayed 250 mg PO QID #120 tablet. 01/04/20 release pyridostigmine bromide 5 mg/mL 10 mg IM Q6H #240 ml 01/04/20 injection solution Nitrofurantoin Sr [Macrobid] 100 mg PO BID #14 cap 01/31/20 Allergies Allergy/AdvReac Type Severity Reaction Status Date / Time Sulfa (Sulfonamide Allergy Severe Anaphylaxis Verified 01/31/20 09:09 Antibiotics) adhesive tape AdvReac Mild Blister Verified 01/31/20 09:09 metoclopramide [From Reglan] AdvReac Mild Anxiety Verified 01/31/20 09:09 steri strips AdvReac Mild Blister Uncoded 12/02/19 06:48 Review of Systems All systems ED: reviewed and negative except as stated. Abdominal Pain PMH - Past Medical History [facility] Narrative: Medical History (Last Updated 01/18/20 @ 21:06 by Robb Goldberg DO) Chronic, continuous use of opioids (Chronic) Myasthenia gravis (Chronic) Chronic intestinal pseudo-obstruction (Chronic) Recurrent intestinal obstruction (Chronic) Diabetes mellitus type 2, uncontrolled (Chronic) LA (obstructive sleep apnea) (Chronic) Hypertension (Chronic) Obesity, Class II, BMI 35-39.9 (Chronic) Low blood magnesium level (Chronic) Sinus tachycardia (Resolved) Abdominal pain (Chronic) Chronic use of steroids (Chronic) Abnormal liver enzymes (Chronic) Hypothyroidism (Chronic) Sarcoidosis (Chronic) Polyglandular autoimmune syndrome (Chronic) Recurrent abdominal pain (Chronic) Abdominal pain (Resolved) Abdominal wound dehiscence (Resolved) Achalasia and cardiospasm (Resolved) Acute respiratory insufficiency (Resolved) Adverse reaction to drug (Resolved) Anaphylaxis (Resolved) Bowel obstruction (Resolved) 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) Constipation due to neurogenic bowel (Resolved) Constipation due to pain medication therapy (Resolved) Dehydration (Resolved) Dehydration (Resolved) Encounter for care related to Port-a-Cath (Resolved) Fecal impaction (Resolved) Foot sprain (Resolved) Hypercalcemia (Resolved) Hypocalcemia (Resolved) Hyponatremia (Resolved) Ileus (Resolved) Infiltrate of lung present on imaging of chest (Resolved) Intractable vomiting (Resolved) Lactic acid acidosis (Resolved) Nausea (Resolved) Nausea & vomiting (Resolved) Nausea & vomiting (Resolved) Nausea and vomiting (Resolved) Obstruction of descending colon (Resolved) Pancreatitis (Resolved) Parastomal hernia with obstruction, without gangrene (Resolved) Partial intestinal obstruction, unspecified as to cause (Resolved) Partial small bowel obstruction (Resolved) Pneumonia (Resolved) Primary chronic pseudo-obstruction of large intestine (Resolved) Pseudoobstruction of colon (Resolved) Pyelonephritis (Resolved) Sepsis (Resolved) Sepsis associated hypotension (Resolved) Sepsis with acute hypoxic respiratory failure (Resolved) Severe sepsis (Resolved) Sigmoid volvulus (Resolved) Sinus tachycardia (Resolved) Small bowel obstruction (Resolved) Small bowel obstruction (Resolved) Small bowel obstruction (Resolved) Small bowel obstruction (Resolved) Small bowel obstruction (Resolved) Small bowel obstruction (Resolved) Small bowel obstruction due to adhesions (Resolved) Small bowel obstruction due to postoperative adhesions (Resolved) Small bowel obstruction, partial (Resolved) Supraventricular tachycardia (Resolved) UTI (urinary tract infection) (Resolved) UTI (urinary tract infection) (Resolved) Volvulus of sigmoid colon (Resolved) Past Surgical History (Last Reviewed 10/19/19 @ 12:47 by Bertha Currie MD) History of exploratory laparotomy (Acute) History of exploratory laparotomy (Acute) History of exploratory laparotomy (Acute) History of exploratory laparotomy (Acute) S/P ileostomy (Resolved) Family History (Last Reviewed 10/19/19 @ 12:47 by Bertha Currie MD) Father CAD (coronary artery disease) Mother CAD (coronary artery disease) Grandfather CVA (cerebral vascular accident) Grandmother CVA (cerebral vascular accident) Medical history: Reports: COPD, hypertension, hypothyroidism, other (Myasthenia gravis). Denies: DVT, pulmonary embolus Psychiatric history: Reports: anxiety, depression SYSTEMS SPEC history: Reports: non-contributory Family history: Reports: other - Social History Smoking status: Never smoker Alcohol use: Reports: None Drug use: Reports: none. Denies: marijuana Physical Exam Limitations: no limitations General appearance: alert Head: atraumatic Eye: Present: normal appearance ENT: Present: normal exam Neck: Present: normal inspection Chest: Present: normal inspection Respiratory: Present: normal lung sounds bilaterally Cardiovascular: Present: regular rate, normal rhythm, normal heart sounds Abdominal: Present: soft, distention, tenderness. Absent: guarding, rebound Abdominal tenderness: Present: diffuse, mild Neurological: Present: alert Psychiatric: Present: normal affect Skin: Present: warm, dry Course Vital Signs Temperature 97.5 F 02/01/20 01:39 Pulse Rate 70 02/01/20 01:39 Respiratory Rate 20 02/01/20 01:39 Blood Pressure 137/122 02/01/20 01:39 Pulse Oximetry (%) 97 02/01/20 01:39 Temperature 97.6 F 02/01/20 07:37 Pulse Rate 126 H 02/01/20 07:37 Respiratory Rate 18 02/01/20 07:37 Blood Pressure 145/79 02/01/20 07:37 Pulse Oximetry (%) 96 02/01/20 07:37 Abdominal Pain - MDM Narrative Medical decision making narrative: I discussed the case with Dr. Mcdowell the surgeon airport operations manager and she will be admitted to his service. NG tube will be placed. - Lab Data Lab results reviewed: Yes I reviewed the patient's lab results. Result diagrams: 02/01/20 02:20 02/01/20 02:20 Lab Results 02/01/20 02/01/20 Range/Units 02:20 02:20 WBC 11.3 H (4.50-11.00) K/mcL RBC 4.76 (3.59-5.38) M/mcL Hgb 13.2 (11.2-15.7) g/dL Hct 40.8 (34.1-44.9) % MCV 85.7 (80.0-100.0) fL MCH 27.7 (26.0-34.0) pg MCHC 32.4 (31.0-36.0) g/dL RDW 13.7 (11.5-14.5) % Plt Count 365 (140-440) K/mcL MPV 8.9 (7.4-10.4) fL Gran % 68.0 (38.0-78.0) % Lymph % (Auto) 19.9 (15.5-49.0) % [place] % (Auto) 10.6 (1.0-12.0) % Eos % (Auto) 1.1 (0.0-7.0) % Baso % (Auto) 0.4 (0.0-2.0) % Gran # 7.70 (1.80-8.00) K/mcL Lymph # (Auto) 2.25 (1.50-4.80) K/mcL [place] # (Auto) 1.20 H (0.10-0.90) K/mcL Eos # (Auto) 0.13 (0.00-0.70) K/mcL Baso # (Auto) 0.04 (0.00-0.30) K/mcL Sodium 129 L (133-145) mmol/L Potassium 3.1 L (3.3-5.1) mmol/L Chloride 88 L (96-108) mmol/L Carbon Dioxide 28 (22-30) mmol/L Anion Gap 13.0 (8-16) BUN 13 (6-20) mg/dl Creatinine 0.7 (0.6-1.1) mg/dl GFR Calculation 96 Glucose 177 H (70-105) mg/dL Calcium 6.5 L (8.6-10.4) mg/dl Total Bilirubin 0.4 (0.0-1.0) mg/dL AST 17 (0-37) U/l ALT 20 (0-40) U/l Alkaline Phosphatase 96 (39-117) U/L Total Protein 5.5 L (5.9-8.4) gm/dL Albumin 2.7 L (3.2-5.2) gm/dL Globulin 2.8 (2.2-3.7) gm/dL Albumin/Globulin Ratio 1.0 (1.0-2.3) Disposition Pt seen by TATTOOER/PA only: No Clinical Impression: Primary chronic pseudo-obstruction of small intestine Disposition: Xfer As Outpt/Obs ([facility]) Condition: Fair
[2020-02-01] MEDS: ONDANSETRON 4 MG/2 ML VIAL IV PRN ×3 (09:40→21:01)
--- NOTE | 2020-02-01 16:25 | General Surg History&Physical ---
History of Present Illness Patient information: Note initiated : 02/01/20 at 4:24 pm Service Date, if different from initiated Date: [] Patient: Dayanna Guo a 59 y/o F admitted on 02/01/20 for Abdominal Pain. Chief Complaint: [] HPI: Ms. Guo is a 59 year old F for recurrent intestinal pseudoobstruction with nausea and vomiting. The patient was initially admitted through through 12/27/19 for similar complaints. She returned on 01/18/20 similar complaints and was treated until 01/28/20. she was home less than 24 hours she returned with similar symptoms. 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 She states that she developed increasing abdominal pain, nausea, and had decreased output through her stoma. She also has significant dilation of her abdomen. She returned to the emergency room requesting that nasogastric tube be placed. After the nasogastric tube was placed. She immediately put out 2000 cc of bilious drainage. She has been on nasogastric decompression. All day and has put out 2000 cc more. She states that she feels much better. She has now started having more output through her ileostomy. Her white blood count was 11.3 and potassium 3.1. Her serum calcium 6.5. She will be admitted and continued on gastric decompression with plans to proceed with small bowel follow-through and replace her electrolytes. Review of Systems - Constitutional fatigue, malaise, weakness - EENT Nose, mouth and throat: headache(s) - Cardiovascular irregular heart rhythm, palpatations, syncope - Respiratory no cough, no dyspnea - Gastrointestinal abdominal pain, bloating, change in bowel habits, early satiety, heartburn, nausea, vomiting - Genitourinary Genitourinary: dysuria - Musculoskeletal arthralgias, muscle cramps, muscle weakness, stiffness - Integumentary no new lesions, no pruritus, no rash - Neurological weakness - Psychiatric anxiety, depression - Endocrine fatigue, palpitations - Hematologic/Lymphatic no easy bleeding, no easy bruising, no lymphadenopathy - Allergic/Immunologic no tongue swelling, no throat swelling, no uticaria, no wheezing, no lip swelling Past History Past medical history: History of myasthenia gravis. Chronic obstructive sleep apnea. Diabetes mellitus. Hypocalcemia. Intestinal pseudoobstruction. Multiple bowel obstructions. Past surgical history: Multiple laparotomies, Lantus obstruction. Right colectomy. Subtotal colectomy. Parastomal hernia repair. Incisional hernia repair. Laparoscopic lysis Exploratory laparotomy with adhesion lysis. Exploratory laparotomy with closure of enterotomy Past family history: Coronary artery disease Past social history: Former smoker. Denies alcohol use Denies marijuana use Medications and Allergies Home Medications Medication Instructions Recorded Confirmed Type predniSONE [Prednisone] [address] [facility] #4 tab 05/18/16 02/01/20 Rx DULoxetine [Cymbalta] 30 mg PO BID 11/30/16 02/01/20 History Levothyroxine [Synthroid] 250 mcg PO QAMAC 08/20/17 02/01/20 History metFORMIN HCL [Metformin HCl] 500 mg PO DAILY #30 tab 10/17/18 02/01/20 Rx Calcitriol [Rocaltrol] 0.5 mcg PO TID 02/11/19 02/01/20 History Promethazine [Phenergan] 25 mg PO Q6HP PRN #60 tab 02/13/19 02/01/20 Rx Insulin Glargine, Human [Lantus] 5 unit SQ BID 09/30/19 02/01/20 History Acetaminophen [Tylenol] 650 mg PO Q6HP PRN tab 10/05/19 02/01/20 Rx Accu-Chek 1 each FS ACHS strip 12/03/19 02/01/20 Rx Cyclobenzaprine [Flexeril] 10 mg PO BIDP PRN 12/13/19 02/01/20 History Magnesium Oxide [Magnesium] 500 mg PO BID 12/13/19 02/01/20 History Ondansetron [Zofran ODT] 4 mg SL Q4HP PRN 12/24/19 02/01/20 History Promethazine [Phenergan] 25 mg [place] Q6HP PRN 12/24/19 02/01/20 History erythromycin 250 mg tablet,delayed 250 mg PO QID #120 tablet. 01/04/20 02/01/20 Rx release pyridostigmine bromide 5 mg/mL 10 mg IM Q6H #240 ml 01/04/20 02/01/20 Rx injection solution Nitrofurantoin Sr [Macrobid] 100 mg PO BID #14 cap 01/31/20 02/01/20 Rx Allergies Allergy/AdvReac Type Severity Reaction Status Date / Time Sulfa (Sulfonamide Allergy Severe Anaphylaxis Verified 01/31/20 09:09 Antibiotics) adhesive tape AdvReac Mild Blister Verified 01/31/20 09:09 metoclopramide [From Reglan] AdvReac Mild Anxiety Verified 01/31/20 09:09 steri strips AdvReac Mild Blister Uncoded 12/02/19 06:48 Exam Temp Pulse Resp BP Pulse Ox 97.5 F 115 H 18 124/78 94 02/01/20 12:00 02/01/20 12:00 02/01/20 12:00 02/01/20 12:00 02/01/20 12:00 - General physical appearance well developed, well nourished, no distress, obese - Eyes PERRL, normal ocular movement - ENT normal pinna, normal nares, normal mucosa, no hearing loss, no congestion - Head Head exam IM: Present: atraumatic, normocephalic - Neck no masses, no bruits, trachea midline, no lymphadenopathy, no venous distension - Cardiovascular Cardiovascular exam IM: Present: normal rate and rhythm, RRR, +S1, +S2, tachycardia. Absent: JVD - Respiratory normal expansion, normal respiratory effort, clear to auscultation - Abdomen Abdomen: Present: soft, tender (mild mid abdominal tenderness), bowel sounds, distended (............. Moderate distention in the midabdomen) Hernia: Present: none - Genitourinary Present: normal external genitalia - Integumentary Present: no rash, no growths, no abnormal pigmentation - Neurologic Present: normal coordination, normal sensation - Musculoskeletal Present: normal gait, normal posture - Psychiatric Present: oriented to time, oriented to person, oriented to place, speech is normal, memory intact Assessment and Plan (1) Primary chronic pseudo-obstruction of small intestine O continue REGONOL IV fluid resuscitation. Replace electrolytes and monitor renal status Status: Acute (2) Diabetes mellitus type 2, uncontrolled Accu-Cheks with sliding scale coverage Status: Chronic (3) Hypertension Restart home medications, unable to take by mouth Supplement treatment with IV antihypertensives if needed Status: Chronic Qualifiers: Hypertension type: essential hypertension Qualified Code(s): I10 - Essential (primary) hypertension (4) Hypothyroidism IV levothyroxine Status: Chronic (5) Myasthenia gravis Status: Chronic (6) LA (obstructive sleep apnea) Supplemental oxygen at bedtime Status: Chronic (7) Polyglandular autoimmune syndrome Restart Solu-Medrol until patient is able to take orally Status: Chronic (8) Hypocalcemia IV calcium until patient is able to take orally Status: Resolved (9) Small bowel obstruction, partial After gastric decompression. We'll proceed with small bowel follow-through Status: Resolved
[2020-02-01] MEDS ORDERED: POTASSIUM CHLORIDE 40 MEQ in DEXTROSE 5% IN WATER 500 ML IV ONE (16:44)
[2020-02-01] MEDS ORDERED: PROMETHAZINE 25 MG/ML VIAL IV PRN (16:59)
[2020-02-01 17:02] LABS: Appearance,Urine CLEAR; Bacteria,Urine 0 /hpf (0); Bilirubin,Urine NEG (NEG); Color,Urine YELLOW; Culture Indicated,Urine NO; Glucose,Urine (UA) NEGATIVE (NEG); Ictotest,Urine NEG (NEG); Ketones,Urine 20 mg/dL (NEG); Leukocyte Esterase,Urine NEG /uL (NEG); Mucus,Urine MANY /hpf (0); Nitrate,Urine NEG (NEG); Protein,Urine 30 mg/dL (NEG); Specific Gravity,Urine 1.029 (1.000-1.035); Urine Blood NEG mg/dL (<0.03); Urine RBC 0 /hpf (0-1); Urine Squamous Epithelial Cell 0 /hpf (0-4); Urine WBC 2 /hpf (0-4)
[2020-02-01] MEDS: PYRIDOSTIGMINE BROMIDE 10 MG/2 ML ML IM SCH (18:48)
[2020-02-02] MEDS: HYDROmorphone* 2 MG/ML VIAL IV PRN ×8 (00:52→21:03)
[2020-02-02] MEDS: PYRIDOSTIGMINE BROMIDE 10 MG/2 ML ML IM SCH ×4 (00:54→18:32)
[2020-02-02] MEDS: ONDANSETRON 4 MG/2 ML VIAL IV PRN ×2 (03:10→07:06)
[2020-02-02] MEDS: LACTATED RINGERS 1,000 ML IV SCH ×2 (07:06→16:28)
[2020-02-02] MEDS ORDERED: CALCIUM GLUCONATE 4.65 MEQ/10 ML VIAL IV SCH (09:00)
--- NOTE | 2020-02-02 09:16 | XRay Report ---
INDICATION: FOLLOW -UP OF SMALL BOWEL OBSTRUCTION TECHNIQUE: Supine and upright abdomen. COMPARISON: Multiple previous examinations including recent plain film studies dated 01/29/2020, 01/28/2020, 01/23/2020 FINDINGS:Esophagogastric tube in the stomach. The stomach has been decompressed since 01/31/2020. There is gas throughout the small bowel. Small bowel remains prominent but this is improved since 01/28/2020. There are air-fluid levels. There is no pneumatosis. No biliary or portal venous gas. IMPRESSION: 1. Interval decompression of the stomach since 01/31/2020 2. Persistent small bowel gas. Dilatation is improved since 01/28/2020 Interpreted and Authenticated by: All Cormier 02/02/20
[2020-02-02] MEDS: methylPREDNISolone SOD SUCC 125 MG/2 ML VIAL IV SCH (09:47)
[2020-02-02] MEDS: LEVOTHYROXINE 100 MCG VIAL IV SCH (09:56)
[2020-02-02 10:06] LABS: Basophils # (Auto) 0.04 K/mcL (0.00-0.30); Basophils % (Auto) 0.5 % (0.0-2.0); Eosinophils # (Auto) 0.29 K/mcL (0.00-0.70); Eosinophils % (Auto) 3.7 % (0.0-7.0); Granulocytes % (Auto) 63.6 % (38.0-78.0); Hematocrit 33.4 % (34.1-44.9); Hemoglobin 10.7 g/dL (11.2-15.7); Lymphocytes % (Auto) 20.5 % (15.5-49.0); Mean Cell Volume 88.1 fL (80.0-100.0); Monocytes # (Auto) 0.91 K/mcL (0.10-0.90); Monocytes % (Auto) 11.7 % (1.0-12.0); Platelet Count 297 K/mcL (140-440); RBC 3.79 M/mcL (3.59-5.38); Red Cell Distribution Width 13.8 % (11.5-14.5); WBC 7.8 K/mcL (4.50-11.00)
[2020-02-02] MEDS: CALCIUM GLUCONATE 9.3 MEQ in DEXTROSE 5% IN WATER 50 ML IV SCH (10:20)
--- NOTE | 2020-02-02 13:58 | General Surgery Progress Note ---
Subjective Patient reports: feels better, still having pain, pain is less, bowel movement, diarrhea, nausea, afebrile Narrative: Note initiated : 02/02/20 at 1:56 pm Service Date, if different from initiated Date: [] Patient: Dayanna Guo 59 y/o F admitted on 02/01/20 for Abdominal Pain. Chief Complaint: [Patient is doing well. She still has a small amount of output through her ostomy. Her abdominal distention is significantly improved. She still has high volume output through her nasogastric tube. X-rays reveal that the stomach is decompressed and there is some decompression of the proximal small bowel. Gas still appears to be extending to the stoma. Discussed with her the need to proceed with a small bowel follow-through which will be diagnostic as well as therapeutic. White count 7.8, hemoglobin 10.7, hematocrit 33.4] Objective Temp Pulse Resp BP Pulse Ox 98.3 F 95 H 18 146/92 96 02/02/20 12:00 02/02/20 12:00 02/02/20 12:00 02/02/20 12:00 02/02/20 12:00 - Additional Data Intake & Output - Last 24 hours: Intake & Output 01/31/20 02/01/20 02/02/20 02/03/20 05:59 05:59 05:59 05:59 Intake Total 766 4031 1656 Output Total 2200 4750 1350 Balance -1434 -719 306 Weight 223 lb 8 oz 232 lb 8 oz - General physical appearance well developed, well nourished, no distress, moderate pain - Eyes PERRL, normal ocular movement - ENT normal pinna, normal nares, normal mucosa, no hearing loss, no congestion - Neck no masses, no bruits, trachea midline, no lymphadenopathy, no venous distension - Respiratory normal expansion, normal respiratory effort, clear to auscultation - Cardiovascular Cardiovascular exam: Present: normal rate and rhythm, +S1, +S2, tachycardia. Absent: JVD, RRR - Abdomen distended (abdomen is less distended; few active bowel sounds; stoma is functioning but with decreased output) - Integumentary no rash, no growths, no abnormal pigmentation - Neurologic normal coordination, normal sensation - Musculoskeletal normal gait, normal posture - Psychiatric oriented to time, oriented to person, oriented to place, speech is normal, memory intact - Labs 02/02/20 09:25 02/01/20 02:20 Assessment and Plan (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 Will proceed with small bowel follow-through this afternoon. Hopefully this will facilitate good decompression and danielle ogastric suction May be discontinued tomorrow. Current Visit: Yes (2) Diabetes mellitus type 2, uncontrolled Status: Chronic Assessment and plan: Adequately controlled Current Visit: No (3) Hypertension Status: Chronic Current Visit: No (4) Hypothyroidism Status: Chronic Current Visit: No (5) Myasthenia gravis Status: Chronic Current Visit: No (6) LA (obstructive sleep apnea) Status: Chronic Current Visit: No (7) Polyglandular autoimmune syndrome Status: Chronic Current Visit: No (8) Hypocalcemia Status: Resolved Current Visit: No (9) Small bowel obstruction, partial Status: Resolved Current Visit: No - Time Spent With Patient Total time spent is greater than 50% in coordination of care (as documented) at patient's floor/unit and/or counseling patient:
[2020-02-02] MEDS ORDERED: DEXTROSE 31 GM ORAL.SUSP PO PRN (14:02)
[2020-02-02] MEDS ORDERED: DEXTROSE 50% 50 ML VIAL IV PRN (14:02)
[2020-02-02] MEDS ORDERED: BENZOCAINE 1 SPRAY BOTTLE TOPICAL PRN (14:04)
[2020-02-02] MEDS ORDERED: DIATRIZOATE MEGLU/DIATRIZO SOD 30 ML BOTTLE PO ONE (16:08)
[2020-02-02] MEDS: INSULIN LISPRO 1 UNIT/0.01 ML UNIT SQ SCH (18:46)
[2020-02-03] MEDS: PYRIDOSTIGMINE BROMIDE 10 MG/2 ML ML IM SCH ×4 (00:07→17:12)
[2020-02-03] MEDS: HYDROmorphone* 2 MG/ML VIAL IV PRN ×6 (00:08→20:29)
[2020-02-03] MEDS: INSULIN LISPRO 1 UNIT/0.01 ML UNIT SQ SCH ×5 (00:28→20:38)
[2020-02-03] MEDS: LACTATED RINGERS 1,000 ML IV SCH (00:29)
[2020-02-03 06:04] LABS: Basophils # (Auto) 0.01 K/mcL (0.00-0.30); Basophils % (Auto) 0.1 % (0.0-2.0); Eosinophils # (Auto) 0.01 K/mcL (0.00-0.70); Eosinophils % (Auto) 0.1 % (0.0-7.0); Granulocytes % (Auto) 70.9 % (38.0-78.0); Hematocrit 36.3 % (34.1-44.9); Hemoglobin 11.4 g/dL (11.2-15.7); Lymphocytes # (Auto) 1.64 K/mcL (1.50-4.80); Lymphocytes % (Auto) 20.1 % (15.5-49.0); Mean Cell Volume 87.9 fL (80.0-100.0); Mean Corpuscular HGB Conc 31.4 g/dL (31.0-36.0); Mean Platelet Volume 9.3 fL (7.4-10.4); Monocytes # (Auto) 0.72 K/mcL (0.10-0.90); Monocytes % (Auto) 8.8 % (1.0-12.0); Platelet Count 376 K/mcL (140-440); RBC 4.13 M/mcL (3.59-5.38); Red Cell Distribution Width 13.7 % (11.5-14.5); WBC 8.2 K/mcL (4.50-11.00)
[2020-02-03 06:25] LABS: ALT/SGPT 17 U/l (0-40); AST/SGOT 17 U/l (0-37); Albumin 2.5 gm/dL (3.2-5.2); Albumin/Globulin Ratio 0.9 (1.0-2.3); Alkaline Phosphatase 81 U/L (39-117); Bilirubin,Direct < 0.2 mg/dL (0.0-0.3); Bilirubin,Total 0.2 mg/dL (0.0-1.0); Blood Urea Nitrogen 8 mg/dl (6-20); Globulin 2.9 gm/dL (2.2-3.7); Glomerular Filtration Rate 100; Glucose 102 mg/dL (70-105); Lactate Dehydrogenase 318 U/L (94-250); Phosphorous 4.5 mg/dL (2.7-4.5); Triglycerides 120 mg/dl (<150); Uric Acid 7.2 mg/dL (2.5-8.0)
[2020-02-03 06:27] LABS: Calcium 8.2 mg/dl (8.6-10.4); Carbon Dioxide 35 mmol/L (22-30); Chloride 94 mmol/L (96-108)
--- NOTE | 2020-02-03 06:46 | XRay Report ---
INDICATION: Follow-up with small bowel obstruction TECHNIQUE: Gastrografin was given through the patient's nasogastric tube. Images were obtained at 1.5 hours, 4.5 hours, 15.5 hours. COMPARISON: Multiple previous CT scans and plain film studies FINDINGS: Much of the contrast material passes from the small bowel into the patient's ileostomy collection bag by 15.5 hours. There is persistent small bowel dilatation. There is some residual contrast material identified. Follow-up plain film examination may be helpful to evaluate for persistent or resolving small bowel distention. IMPRESSION: 1. Passage of much of the contrast material from the small bowel into the ileostomy collection bag by 15.5 hours 2. Persistent small bowel dilatation Interpreted and Authenticated by: All Cormier 02/03/20
[2020-02-03] MEDS ORDERED: 0.9 % SODIUM CHLORIDE 1,000 ML IV ONE ×2 (07:10→08:15)
[2020-02-03] MEDS ORDERED: POTASSIUM CHLORIDE 40 MEQ in DEXTROSE 5% IN WATER 500 ML IV ONE (07:18)
[2020-02-03] MEDS ORDERED: MAGNESIUM SULFATE 4 GM/100 ML BAG IV SCH (07:30)
[2020-02-03] MEDS: LEVOTHYROXINE 100 MCG VIAL IV SCH (09:13)
[2020-02-03] MEDS: methylPREDNISolone SOD SUCC 125 MG/2 ML VIAL IV SCH (09:16)
[2020-02-03] MEDS: POLYETHYLENE GLYCOL 3350 17 GM PACKET PO SCH ×4 (09:17→20:29)
[2020-02-03] MEDS: 0.9 % SODIUM CHLORIDE 1,000 ML IV SCH ×2 (11:29→17:17)
--- NOTE | 2020-02-03 15:03 | General Surgery Progress Note ---
Subjective Patient reports: feels better, pain is less, tolerating liquids well, flatus, bowel movement, afebrile Narrative: Note initiated : 02/03/20 at 3:00 pm Service Date, if different from initiated Date: [] Patient: Dayanna Guo 59 y/o F admitted on 02/01/20 for Abdominal Pain. Chief Complaint: [patient had slow transit of contrast through her bowel, however contrast did traverse the entire bowel into her stoma appliance. Her abdomen is softer and she has good active bowel sounds. She complains of mild mid abdominal tenderness but there is no major distention] Objective Temp Pulse Resp BP Pulse Ox 98.8 F 98 H 18 141/74 94 02/03/20 11:35 02/03/20 11:35 02/03/20 11:35 02/03/20 11:35 02/03/20 11:35 - Additional Data Intake & Output - Last 24 hours: Intake & Output 02/01/20 02/02/20 02/03/20 02/04/20 05:59 05:59 05:59 05:59 Intake Total 766 4031 4576 3064 Output Total 2200 4750 7625 1650 Balance -2668 -412 -1975 1414 Weight 223 lb 8 oz 232 lb 8 oz 214 lb 4.8 oz - General physical appearance well developed, well nourished, no distress - Eyes PERRL, normal ocular movement - ENT normal pinna, normal nares, normal mucosa, no hearing loss, no congestion - Neck no masses, no bruits, trachea midline, no lymphadenopathy, no venous distension - Respiratory normal expansion, normal respiratory effort, clear to auscultation - Cardiovascular Cardiovascular exam: Present: normal rate and rhythm, RRR, +S1, +S2. Absent: JVD, tachycardia - Abdomen non tender, bowel sounds (present), surgical scars (none), masses (none), distended (no distention noted) - Integumentary no rash, no growths, no abnormal pigmentation - Neurologic normal coordination, normal sensation - Musculoskeletal normal gait, normal posture - Psychiatric oriented to time, oriented to person, oriented to place, speech is normal, memory intact - Labs 02/03/20 05:00 02/03/20 05:00 Diabetes panel 02/03/20 Range/Units 05:00 Sodium 143 (133-145) mmol/L Potassium 3.1 L (3.3-5.1) mmol/L Chloride 94 L (96-108) mmol/L Carbon Dioxide 35 H (22-30) mmol/L BUN 8 (6-20) mg/dl Creatinine 0.6 (0.6-1.1) mg/dl Glucose 102 (70-105) mg/dL Calcium 8.2 L (8.6-10.4) mg/dl AST 17 (0-37) U/l ALT 17 (0-40) U/l Alkaline Phosphatase 81 (39-117) U/L Total Protein 5.4 L (5.9-8.4) gm/dL Albumin 2.5 L (3.2-5.2) gm/dL Triglycerides 120 (<150) mg/dl Calcium panel 02/03/20 Range/Units 05:00 Calcium 8.2 L (8.6-10.4) mg/dl Phosphorus 4.5 (2.7-4.5) mg/dL Albumin 2.5 L (3.2-5.2) gm/dL Pituitary panel 02/03/20 Range/Units 05:00 Sodium 143 (133-145) mmol/L Potassium 3.1 L (3.3-5.1) mmol/L Chloride 94 L (96-108) mmol/L Carbon Dioxide 35 H (22-30) mmol/L BUN 8 (6-20) mg/dl Creatinine 0.6 (0.6-1.1) mg/dl Glucose 102 (70-105) mg/dL Calcium 8.2 L (8.6-10.4) mg/dl Adrenal panel 02/03/20 Range/Units 05:00 Sodium 143 (133-145) mmol/L Potassium 3.1 L (3.3-5.1) mmol/L Chloride 94 L (96-108) mmol/L Carbon Dioxide 35 H (22-30) mmol/L BUN 8 (6-20) mg/dl Creatinine 0.6 (0.6-1.1) mg/dl Glucose 102 (70-105) mg/dL Calcium 8.2 L (8.6-10.4) mg/dl Total Bilirubin 0.2 (0.0-1.0) mg/dL AST 17 (0-37) U/l ALT 17 (0-40) U/l Alkaline Phosphatase 81 (39-117) U/L Total Protein 5.4 L (5.9-8.4) gm/dL Albumin 2.5 L (3.2-5.2) gm/dL Assessment and Plan (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 follow-up 2 view abdomen in the morning Current Visit: Yes (2) Diabetes mellitus type 2, uncontrolled Status: Chronic Assessment and plan: Adequately controlled Current Visit: No (3) Hypertension Status: Chronic Current Visit: No (4) Hypothyroidism Status: Chronic Current Visit: No (5) Myasthenia gravis Status: Chronic Current Visit: No (6) LA (obstructive sleep apnea) Status: Chronic Current Visit: No (7) Polyglandular autoimmune syndrome Status: Chronic Current Visit: No (8) Hypocalcemia Status: Resolved Current Visit: No (9) Small bowel obstruction, partial Status: Resolved Current Visit: No - Time Spent With Patient Total time spent is greater than 50% in coordination of care (as documented) at patient's floor/unit and/or counseling patient:
[2020-02-03] MEDS: CALCIUM GLUCONATE 9.3 MEQ in DEXTROSE 5% IN WATER 50 ML IV SCH (15:30)
[2020-02-04] MEDS: PYRIDOSTIGMINE BROMIDE 10 MG/2 ML ML IM SCH ×5 (00:04→23:57)
[2020-02-04] MEDS: HYDROmorphone* 2 MG/ML VIAL IV PRN ×7 (00:05→21:59)
[2020-02-04] MEDS: 0.9 % SODIUM CHLORIDE 1,000 ML IV SCH ×5 (00:06→23:55)
[2020-02-04] MEDS ORDERED: diphenhydrAMINE 50 MG/ML VIAL IV PRN (00:21)
[2020-02-04] MEDS: ONDANSETRON 4 MG/2 ML VIAL IV PRN (03:20)
[2020-02-04 06:26] LABS: Basophils # (Auto) 0.01 K/mcL (0.00-0.30); Basophils % (Auto) 0.1 % (0.0-2.0); Eosinophils # (Auto) 0.02 K/mcL (0.00-0.70); Eosinophils % (Auto) 0.3 % (0.0-7.0); Granulocytes % (Auto) 61.4 % (38.0-78.0); Hematocrit 32.5 % (34.1-44.9); Hemoglobin 10.3 g/dL (11.2-15.7); Lymphocytes % (Auto) 24.5 % (15.5-49.0); Mean Cell Volume 87.8 fL (80.0-100.0); Mean Corpuscular HGB Conc 31.7 g/dL (31.0-36.0); Mean Platelet Volume 9.2 fL (7.4-10.4); Monocytes # (Auto) 1.06 K/mcL (0.10-0.90); Monocytes % (Auto) 13.7 % (1.0-12.0); Platelet Count 300 K/mcL (140-440); Red Cell Distribution Width 13.6 % (11.5-14.5); WBC 7.8 K/mcL (4.50-11.00)
[2020-02-04 06:49] LABS: ALT/SGPT 17 U/l (0-40); AST/SGOT 18 U/l (0-37); Albumin 2.5 gm/dL (3.2-5.2); Albumin/Globulin Ratio 1.1 (1.0-2.3); Alkaline Phosphatase 67 U/L (39-117); Bilirubin,Direct < 0.2 mg/dL (0.0-0.3); Bilirubin,Total 0.2 mg/dL (0.0-1.0); Blood Urea Nitrogen 4 mg/dl (6-20); Calcium 7.1 mg/dl (8.6-10.4); Carbon Dioxide 31 mmol/L (22-30); Chloride 97 mmol/L (96-108); Globulin 2.3 gm/dL (2.2-3.7); Glomerular Filtration Rate 107; Glucose 112 mg/dL (70-105); Lactate Dehydrogenase 328 U/L (94-250); Triglycerides 134 mg/dl (<150); Uric Acid 5.4 mg/dL (2.5-8.0)
[2020-02-04] MEDS: LEVOTHYROXINE 100 MCG VIAL IV SCH (07:17)
[2020-02-04] MEDS: INSULIN LISPRO 1 UNIT/0.01 ML UNIT SQ SCH ×4 (08:17→22:01)
[2020-02-04] MEDS: POLYETHYLENE GLYCOL 3350 17 GM PACKET PO SCH ×4 (08:18→21:59)
[2020-02-04] MEDS: CALCIUM GLUCONATE 9.3 MEQ in DEXTROSE 5% IN WATER 50 ML IV SCH (08:19)
[2020-02-04] MEDS: methylPREDNISolone SOD SUCC 125 MG/2 ML VIAL IV SCH (08:20)
[2020-02-04] MEDS: MAGNESIUM SULFATE 4 GM/100 ML BAG IV SCH ×2 (12:03→15:56)
--- NOTE | 2020-02-04 14:37 | XRay Report ---
INDICATION: FOLLOW -UP OF SMALL BOWEL OBSTRUCTION TECHNIQUE: Supine and upright abdomen. COMPARISON: Multiple previous examinations. Most recent prior studies are dated 02/02/2020, 02/01/2020, 01/31/2020, 01/29/2020 FINDINGS:There is no contrast material remaining within small bowel. There is persistent gaseous distention of small bowel. Appearance is essentially unchanged. There is no pneumoperitoneum. No biliary or portal venous gas. There is no pneumatosis. IMPRESSION: 1. Gas-filled small bowel remains dilated, unchanged 2. No remaining contrast material within small bowel Interpreted and Authenticated by: All Cormier 02/04/20
--- NOTE | 2020-02-04 17:28 | General Surgery Progress Note ---
Subjective Patient reports: feels better, pain is less, flatus, bowel movement, diarrhea, afebrile Narrative: Note initiated : 02/04/20 at 5:25 pm Service Date, if different from initiated Date: [] Patient: Dayanna Guo 59 y/o F admitted on 02/01/20 for Abdominal Pain. Chief Complaint: [patient states that she feels better. She has continued to put out small amounts of stool and gas through her stoma. She has some mid abdominal pain. Abdominal x-rays shows dilated stomach and small bowel. Discussed with . Patient the plan to proceed with contrast study through her stoma to evaluate the distal ileum to rule out an obstructing lesion. This will be performed tomorrow.] Objective Temp Pulse Resp BP Pulse Ox 97.2 F 97 H 16 156/97 92 02/04/20 12:00 02/04/20 12:00 02/04/20 12:00 02/04/20 12:00 02/04/20 12:00 - Additional Data Intake & Output - Last 24 hours: Intake & Output 02/02/20 02/03/20 02/04/20 02/05/20 05:59 05:59 05:59 05:59 Intake Total 4031 4576 8984 1100 Output Total 6676 8730 6682 Balance -324 -7926 6543 1100 Weight 232 lb 8 oz 214 lb 4.8 oz 220 lb 220 lb - General physical appearance well developed, well nourished, no distress - Eyes PERRL, normal ocular movement - ENT normal pinna, normal nares, normal mucosa, no hearing loss, no congestion - Neck no masses, no bruits, trachea midline, no lymphadenopathy, no venous distension - Respiratory normal expansion, normal respiratory effort, clear to auscultation - Cardiovascular Cardiovascular exam: Present: normal rate and rhythm, RRR, +S1, +S2. Absent: JVD, tachycardia - Abdomen soft, distended (mildly distended and obese; mild tenderness in mid abdomen; stoma right lower quadrant functioning) - Integumentary no rash, no growths, no abnormal pigmentation - Neurologic normal coordination, normal sensation - Musculoskeletal normal gait, normal posture - Psychiatric oriented to time, oriented to person, oriented to place, speech is normal, memory intact - Labs 02/04/20 05:44 04/23/20 05:44 Diabetes panel 02/04/20 Range/Units 05:44 Sodium 140 (133-145) mmol/L Potassium 3.5 (3.3-5.1) mmol/L Chloride 97 (96-108) mmol/L Carbon Dioxide 31 H (22-30) mmol/L BUN 4 L (6-20) mg/dl Creatinine 0.5 L (0.6-1.1) mg/dl Glucose 112 H (70-105) mg/dL Calcium 7.1 L (8.6-10.4) mg/dl AST 18 (0-37) U/l ALT 17 (0-40) U/l Alkaline Phosphatase 67 (39-117) U/L Total Protein 4.8 L (5.9-8.4) gm/dL Albumin 2.5 L (3.2-5.2) gm/dL Triglycerides 134 (<150) mg/dl Calcium panel 02/04/20 Range/Units 05:44 Calcium 7.1 L (8.6-10.4) mg/dl Phosphorus 3.0 (2.7-4.5) mg/dL Albumin 2.5 L (3.2-5.2) gm/dL Pituitary panel 02/04/20 Range/Units 05:44 Sodium 140 (133-145) mmol/L Potassium 3.5 (3.3-5.1) mmol/L Chloride 97 (96-108) mmol/L Carbon Dioxide 31 H (22-30) mmol/L BUN 4 L (6-20) mg/dl Creatinine 0.5 L (0.6-1.1) mg/dl Glucose 112 H (70-105) mg/dL Calcium 7.1 L (8.6-10.4) mg/dl Adrenal panel 02/04/20 Range/Units 05:44 Sodium 140 (133-145) mmol/L Potassium 3.5 (3.3-5.1) mmol/L Chloride 97 (96-108) mmol/L Carbon Dioxide 31 H (22-30) mmol/L BUN 4 L (6-20) mg/dl Creatinine 0.5 L (0.6-1.1) mg/dl Glucose 112 H (70-105) mg/dL Calcium 7.1 L (8.6-10.4) mg/dl Total Bilirubin 0.2 (0.0-1.0) mg/dL AST 18 (0-37) U/l ALT 17 (0-40) U/l Alkaline Phosphatase 67 (39-117) U/L Total Protein 4.8 L (5.9-8.4) gm/dL Albumin 2.5 L (3.2-5.2) gm/dL Assessment and Plan (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 Scheduled for retrograde contrast study through ileostomy tomorrow Current Visit: Yes (2) Diabetes mellitus type 2, uncontrolled Status: Chronic Assessment and plan: Adequately controlled Current Visit: No (3) Hypertension Status: Chronic Current Visit: No (4) Hypothyroidism Status: Chronic Current Visit: No (5) Myasthenia gravis Status: Chronic Current Visit: No (6) LA (obstructive sleep apnea) Status: Chronic Current Visit: No (7) Polyglandular autoimmune syndrome Status: Chronic Current Visit: No (8) Hypocalcemia Status: Resolved Current Visit: No (9) Small bowel obstruction, partial Status: Resolved Current Visit: No - Time Spent With Patient Total time spent is greater than 50% in coordination of care (as documented) at patient's floor/unit and/or counseling patient:
[2020-02-05] MEDS: HYDROmorphone* 2 MG/ML VIAL IV PRN ×8 (00:31→20:45)
[2020-02-05] MEDS: PYRIDOSTIGMINE BROMIDE 10 MG/2 ML ML IM SCH ×2 (05:18→11:18)
[2020-02-05 06:38] LABS: Basophils # (Auto) 0.03 K/mcL (0.00-0.30); Basophils % (Auto) 0.5 % (0.0-2.0); Eosinophils # (Auto) 0.05 K/mcL (0.00-0.70); Eosinophils % (Auto) 0.8 % (0.0-7.0); Granulocytes % (Auto) 52.1 % (38.0-78.0); Hematocrit 32.7 % (34.1-44.9); Hemoglobin 10.1 g/dL (11.2-15.7); Lymphocytes # (Auto) 2.06 K/mcL (1.50-4.80); Lymphocytes % (Auto) 33.7 % (15.5-49.0); Mean Cell Volume 89.1 fL (80.0-100.0); Mean Corpuscular HGB Conc 30.9 g/dL (31.0-36.0); Monocytes # (Auto) 0.79 K/mcL (0.10-0.90); Monocytes % (Auto) 12.9 % (1.0-12.0); Platelet Count 311 K/mcL (140-440); RBC 3.67 M/mcL (3.59-5.38); Red Cell Distribution Width 13.7 % (11.5-14.5); WBC 6.1 K/mcL (4.50-11.00)
[2020-02-05 07:02] LABS: ALT/SGPT 39 U/l (0-40); AST/SGOT 56 U/l (0-37); Albumin 2.6 gm/dL (3.2-5.2); Albumin/Globulin Ratio 1.2 (1.0-2.3); Alkaline Phosphatase 71 U/L (39-117); Bilirubin,Direct < 0.2 mg/dL (0.0-0.3); Bilirubin,Total 0.2 mg/dL (0.0-1.0); Calcium 6.5 mg/dl (8.6-10.4); Carbon Dioxide 33 mmol/L (22-30); Chloride 98 mmol/L (96-108); Globulin 2.2 gm/dL (2.2-3.7); Glomerular Filtration Rate 107; Glucose 118 mg/dL (70-105); Lactate Dehydrogenase 371 U/L (94-250); Phosphorous 3.3 mg/dL (2.7-4.5); Triglycerides 145 mg/dl (<150); Uric Acid 4.8 mg/dL (2.5-8.0)
[2020-02-05] MEDS: INSULIN LISPRO 1 UNIT/0.01 ML UNIT SQ SCH ×4 (07:07→20:58)
[2020-02-05] MEDS: LEVOTHYROXINE 100 MCG VIAL IV SCH (07:07)
[2020-02-05] MEDS: ONDANSETRON 4 MG/2 ML VIAL IV PRN ×2 (07:10→20:46)
[2020-02-05 07:17] LABS: Blood Urea Nitrogen 2 mg/dl (6-20)
[2020-02-05] MEDS ORDERED: DIATRIZOATE MEGLU/DIATRIZO SOD 30 ML BOTTLE PO ONE ×2 (09:47→14:33)
[2020-02-05] MEDS ORDERED: IOHEXOL 180 10 ML VIAL IJ ONE (09:47)
[2020-02-05] MEDS: 0.9 % SODIUM CHLORIDE 1,000 ML IV SCH ×2 (09:48→16:16)
[2020-02-05] MEDS: POLYETHYLENE GLYCOL 3350 17 GM PACKET PO SCH ×2 (09:49→13:25)
[2020-02-05] MEDS: CALCIUM GLUCONATE 9.3 MEQ in DEXTROSE 5% IN WATER 50 ML IV SCH (09:49)
[2020-02-05] MEDS: methylPREDNISolone SOD SUCC 125 MG/2 ML VIAL IV SCH (09:49)
--- NOTE | 2020-02-05 11:33 | XRay Report ---
INDICATION: retrograde study through ileostomy TECHNIQUE: Attempted injection of water-soluble contrast material into the right-sided ileostomy was unsuccessful. I was unable to cannulate the stoma despite trying multiple catheters. A pediatric Martinez catheter was attempted. A 14-gauge Angiocath was also attempted. A total of 10 seconds fluoroscopy was utilized Stomal stricture is possible. Dr. Currie was notified. COMPARISON: Multiple previous plain film examinations FINDINGS: [facility] film demonstrates persistent gas-filled small bowel dilatation IMPRESSION: Unsuccessful ileostomy injection. Stomal stricture is possible. Interpreted and Authenticated by: All Cormier 02/05/20
[2020-02-05] MEDS ORDERED: POTASSIUM CHLORIDE 40 MEQ in DEXTROSE 5% IN WATER 500 ML IV ONE (13:57)
--- NOTE | 2020-02-05 14:45 | General Surgery Progress Note ---
Subjective Patient reports: still having pain, flatus, diarrhea, nausea, vomiting Narrative: Note initiated : 02/05/20 at 2:42 pm Service Date, if different from initiated Date: [] Patient: Dayanna Guo 59 y/o F admitted on 02/01/20 for Abdominal Pain. Chief Complaint: [Patient has had decreased output through her stoma and she has increased dilation of the small bowel, stomach. Radiologist tried to do retrog rade study through her ileostomy. However, this was unsuccessful. I was able to place a 16 [place] Martinez catheter and insufflate the balloon. I was able to push 120 cc of contrast. This shows that the small bowel distally is not significantly dilated but it is dilated up to the mid abdomen and then no contrast traverses the normal-appearing bowel. This suggests a distal small bowel stricture. Patient is counseled for exploratory laparotomy which will be done tomorrow. Hopefully she will only need a simple adhesio lysis of the terminal ileum.] Objective Temp Pulse Resp BP Pulse Ox 97.2 F 88 20 150/88 99 02/05/20 11:31 02/05/20 04:00 02/05/20 11:31 02/05/20 11:31 02/05/20 11:31 - Additional Data Intake & Output - Last 24 hours: Intake & Output 02/03/20 02/04/20 02/05/20 02/06/20 05:59 05:59 05:59 05:59 Intake Total 4576 8984 4110 1000 Output Total 7625 4005 2000 Balance -3049 4979 2110 1000 Weight 214 lb 4.8 oz 220 lb 231 lb - General physical appearance well developed, well nourished, moderate distress, moderate pain, obese - Eyes PERRL, normal ocular movement - ENT normal pinna, normal nares, normal mucosa, no hearing loss, no congestion - Neck no masses, no bruits, trachea midline, no lymphadenopathy, no venous distension - Respiratory normal expansion, normal respiratory effort, clear to auscultation - Cardiovascular Cardiovascular exam: Present: normal rate and rhythm, RRR, +S1, +S2. Absent: JVD, tachycardia - Abdomen tender, distended (markedly distended abdomen; active bowel sounds; mid abdominal tenderness; stoma looks good) - Integumentary no rash, no growths, no abnormal pigmentation - Neurologic normal coordination, normal sensation - Musculoskeletal normal gait, normal posture - Psychiatric oriented to time, oriented to person, oriented to place, speech is normal, memory intact - Labs 02/05/20 05:25 02/05/20 05:25 Diabetes panel 02/05/20 Range/Units 05:25 Sodium 139 (133-145) mmol/L Potassium 3.2 L (3.3-5.1) mmol/L Chloride 98 (96-108) mmol/L Carbon Dioxide 33 H (22-30) mmol/L BUN 2 L (6-20) mg/dl Creatinine 0.5 L (0.6-1.1) mg/dl Glucose 118 H (70-105) mg/dL Calcium 6.5 L (8.6-10.4) mg/dl AST 56 H (0-37) U/l ALT 39 (0-40) U/l Alkaline Phosphatase 71 (39-117) U/L Total Protein 4.8 L (5.9-8.4) gm/dL Albumin 2.6 L (3.2-5.2) gm/dL Triglycerides 145 (<150) mg/dl Calcium panel 02/05/20 Range/Units 05:25 Calcium 6.5 L (8.6-10.4) mg/dl Phosphorus 3.3 (2.7-4.5) mg/dL Albumin 2.6 L (3.2-5.2) gm/dL Pituitary panel 02/05/20 Range/Units 05:25 Sodium 139 (133-145) mmol/L Potassium 3.2 L (3.3-5.1) mmol/L Chloride 98 (96-108) mmol/L Carbon Dioxide 33 H (22-30) mmol/L BUN 2 L (6-20) mg/dl Creatinine 0.5 L (0.6-1.1) mg/dl Glucose 118 H (70-105) mg/dL Calcium 6.5 L (8.6-10.4) mg/dl Adrenal panel 02/05/20 Range/Units 05:25 Sodium 139 (133-145) mmol/L Potassium 3.2 L (3.3-5.1) mmol/L Chloride 98 (96-108) mmol/L Carbon Dioxide 33 H (22-30) mmol/L BUN 2 L (6-20) mg/dl Creatinine 0.5 L (0.6-1.1) mg/dl Glucose 118 H (70-105) mg/dL Calcium 6.5 L (8.6-10.4) mg/dl Total Bilirubin 0.2 (0.0-1.0) mg/dL AST 56 H (0-37) U/l ALT 39 (0-40) U/l Alkaline Phosphatase 71 (39-117) U/L Total Protein 4.8 L (5.9-8.4) gm/dL Albumin 2.6 L (3.2-5.2) gm/dL Assessment and Plan (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 Patient is counseled for laparotomy, which will be performed tomorrow. Current Visit: Yes (2) Diabetes mellitus type 2, uncontrolled Status: Chronic Assessment and plan: Adequately controlled Current Visit: No (3) Hypertension Status: Chronic Current Visit: No (4) Hypothyroidism Status: Chronic Current Visit: No (5) Myasthenia gravis Status: Chronic Current Visit: No (6) LA (obstructive sleep apnea) Status: Chronic Current Visit: No (7) Polyglandular autoimmune syndrome Status: Chronic Current Visit: No (8) Hypocalcemia Status: Resolved Current Visit: No (9) Small bowel obstruction, partial Status: Resolved Current Visit: No - Time Spent With Patient Total time spent is greater than 50% in coordination of care (as documented) at patient's floor/unit and/or counseling patient:
--- NOTE | 2020-02-05 15:00 | XRay Report ---
INDICATION: WITH GASTROVIEW TECHNIQUE: The right lower quadrant stoma was injected by Dr. Currie with water-soluble contrast material. Overhead images were obtained. COMPARISON: Multiple previous plain film examinations FINDINGS: There is nondilated small bowel at the stoma and significantly dilated small bowel proximal to the stoma. This is consistent with a prestomal stricture. IMPRESSION: Findings consistent with distal small bowel, prestomal stricture. Interpreted and Authenticated by: All Cormier 02/05/20
[2020-02-05] MEDS: CEFEPIME 1 GM VIAL IV SCH (15:12)
[2020-02-05] MEDS: metroNIDAZOLE 500 MG/100 ML BAG IV SCH ×2 (15:12→20:46)
[2020-02-06] MEDS: HYDROmorphone* 2 MG/ML VIAL IV PRN ×8 (00:04→23:07)
[2020-02-06] MEDS: CEFEPIME 1 GM VIAL IV SCH ×3 (00:04→20:58)
[2020-02-06] MEDS: 0.9 % SODIUM CHLORIDE 1,000 ML IV SCH ×4 (00:42→16:04)
[2020-02-06] MEDS: metroNIDAZOLE 500 MG/100 ML BAG IV SCH ×4 (00:45→17:39)
[2020-02-06] MEDS: ONDANSETRON 4 MG/2 ML VIAL IV PRN ×2 (05:32→17:42)
[2020-02-06 06:56] LABS: Basophils # (Auto) 0.01 K/mcL (0.00-0.30); Basophils % (Auto) 0.2 % (0.0-2.0); Eosinophils # (Auto) 0.06 K/mcL (0.00-0.70); Hematocrit 32.9 % (34.1-44.9); Hemoglobin 10.3 g/dL (11.2-15.7); Lymphocytes # (Auto) 1.98 K/mcL (1.50-4.80); Lymphocytes % (Auto) 33.6 % (15.5-49.0); Mean Cell Volume 88.4 fL (80.0-100.0); Mean Corpuscular HGB Conc 31.3 g/dL (31.0-36.0); Mean Platelet Volume 9.5 fL (7.4-10.4); Monocytes # (Auto) 0.72 K/mcL (0.10-0.90); Monocytes % (Auto) 12.2 % (1.0-12.0); Platelet Count 240 K/mcL (140-440); RBC 3.72 M/mcL (3.59-5.38); Red Cell Distribution Width 13.8 % (11.5-14.5); WBC 5.9 K/mcL (4.50-11.00)
[2020-02-06] MEDS ORDERED: SCOPOLAMINE 1 PATCH PATCH TOPICAL PRN (07:00)
[2020-02-06] MEDS ORDERED: IPRATROPIUM/ALBUTEROL 3 ML AMPUL.NEB NEB PRN (07:00)
[2020-02-06 07:17] LABS: ALT/SGPT 84 U/l (0-40); AST/SGOT 82 U/l (0-37); Albumin 2.5 gm/dL (3.2-5.2); Albumin/Globulin Ratio 1.2 (1.0-2.3); Alkaline Phosphatase 79 U/L (39-117); Bilirubin,Direct < 0.2 mg/dL (0.0-0.3); Bilirubin,Total 0.2 mg/dL (0.0-1.0); Blood Urea Nitrogen 2 mg/dl (6-20); Calcium 6.4 mg/dl (8.6-10.4); Carbon Dioxide 30 mmol/L (22-30); Chloride 101 mmol/L (96-108); Globulin 2.1 gm/dL (2.2-3.7); Glomerular Filtration Rate 107; Glucose 96 mg/dL (70-105); Lactate Dehydrogenase 430 U/L (94-250); Phosphorous 3.2 mg/dL (2.7-4.5); Triglycerides 127 mg/dl (<150); Uric Acid 4.8 mg/dL (2.5-8.0)
[2020-02-06] MEDS: methylPREDNISolone SOD SUCC 125 MG/2 ML VIAL IV SCH (08:22)
[2020-02-06] MEDS: LEVOTHYROXINE 100 MCG VIAL IV SCH (08:23)
[2020-02-06] MEDS ORDERED: MAGNESIUM SULFATE 2 GM/50 ML BAG IV ONE (08:32)
[2020-02-06] MEDS: INSULIN LISPRO 1 UNIT/0.01 ML UNIT SQ SCH ×4 (08:52→21:00)
[2020-02-06] MEDS: CALCIUM GLUCONATE 9.3 MEQ in DEXTROSE 5% IN WATER 50 ML IV SCH (09:35)
--- NOTE | 2020-02-06 12:20 | XRay Report ---
INDICATION: FOLLOW -UP OF SMALL BOWEL OBSTRUCTION TECHNIQUE: Supine and upright abdomen. COMPARISON: Multiple previous abdominal plain film examinations. FINDINGS:Persistent gaseous distention of small bowel. No significant interval change. There are air-fluid levels on upright images. No pneumoperitoneum. No biliary or portal venous gas. IMPRESSION: 1. Persistent small bowel distention 2. No interval change. Interpreted and Authenticated by: All Cormier 02/06/20
--- NOTE | 2020-02-06 16:59 | General Surgery Progress Note ---
Subjective Patient reports: still having pain, flatus, bowel movement, nausea, vomiting Narrative: Note initiated : 02/06/20 at 4:59 pm Service Date, if different from initiated Date: [] Patient: Dayanna Guo 59 y/o F admitted on 02/01/20 for Abdominal Pain. Chief Complaint: [Patient has had decreased output through her stoma and multiple x-rays this morning shows significant distention extending to the terminal ileum suggestive of distal ileal obstruction. I made an attempt to place a catheter into her stoma and injected contrast which only revealed normal caliber bowel for the last few centimeters. Findings suggest a high-grade obstruction proximal to the stoma. Patient is informed that she will need to have laparotomy with adhesion lysis. She is agreeable and has been thoroughly informed of the anticipated findings.] Objective Temp Pulse Resp BP Pulse Ox 99.4 F H 97 H 20 143/81 92 02/06/20 15:56 02/06/20 05:04 02/06/20 15:56 02/06/20 15:56 02/06/20 15:56 - Additional Data Intake & Output - Last 24 hours: Intake & Output 02/04/20 02/05/20 02/06/20 02/07/20 05:59 05:59 05:59 05:59 Intake Total 8984 4110 2670 1270 Output Total 4005 2000 2225 600 Balance 4979 2110 445 670 Weight 220 lb 231 lb 220 lb - General physical appearance well developed, well nourished, moderate distress, moderate pain - Eyes PERRL, normal ocular movement - ENT normal pinna, normal nares, normal mucosa, no hearing loss, no congestion - Neck no masses, no bruits, trachea midline, no lymphadenopathy, no venous distension - Respiratory normal expansion, normal respiratory effort, clear to auscultation - Cardiovascular Cardiovascular exam: Present: normal rate and rhythm, +S1, +S2, tachycardia. Absent: JVD - Abdomen tender (mild tenderness in the midabdomen with moderate distention; hyperactive bowel sounds), bowel sounds (present), surgical scars (none), wound (stoma looks healthy. As noted above), masses (none) - Rectum normal sphincter tone, no hemorrhoids, no tenderness, no masses, no bleeding - Integumentary no rash, no growths, no abnormal pigmentation - Neurologic normal coordination, normal sensation - Musculoskeletal normal gait, normal posture - Psychiatric oriented to time, oriented to person, oriented to place, speech is normal, memory intact - Labs 02/15/20 05:15 02/15/20 05:15 Diabetes panel 02/06/20 Range/Units 05:15 Sodium 142 (133-145) mmol/L Potassium 3.5 (3.3-5.1) mmol/L Chloride 101 (96-108) mmol/L Carbon Dioxide 30 (22-30) mmol/L BUN 2 L (6-20) mg/dl Creatinine 0.5 L (0.6-1.1) mg/dl Glucose 96 (70-105) mg/dL Calcium 6.4 L (8.6-10.4) mg/dl AST 82 H (0-37) U/l ALT 84 H (0-40) U/l Alkaline Phosphatase 79 (39-117) U/L Total Protein 4.6 L (5.9-8.4) gm/dL Albumin 2.5 L (3.2-5.2) gm/dL Triglycerides 127 (<150) mg/dl Calcium panel 02/06/20 Range/Units 05:15 Calcium 6.4 L (8.6-10.4) mg/dl Phosphorus 3.2 (2.7-4.5) mg/dL Albumin 2.5 L (3.2-5.2) gm/dL Pituitary panel 02/06/20 Range/Units 05:15 Sodium 142 (133-145) mmol/L Potassium 3.5 (3.3-5.1) mmol/L Chloride 101 (96-108) mmol/L Carbon Dioxide 30 (22-30) mmol/L BUN 2 L (6-20) mg/dl Creatinine 0.5 L (0.6-1.1) mg/dl Glucose 96 (70-105) mg/dL Calcium 6.4 L (8.6-10.4) mg/dl Adrenal panel 02/06/20 Range/Units 05:15 Sodium 142 (133-145) mmol/L Potassium 3.5 (3.3-5.1) mmol/L Chloride 101 (96-108) mmol/L Carbon Dioxide 30 (22-30) mmol/L BUN 2 L (6-20) mg/dl Creatinine 0.5 L (0.6-1.1) mg/dl Glucose 96 (70-105) mg/dL Calcium 6.4 L (8.6-10.4) mg/dl Total Bilirubin 0.2 (0.0-1.0) mg/dL AST 82 H (0-37) U/l ALT 84 H (0-40) U/l Alkaline Phosphatase 79 (39-117) U/L Total Protein 4.6 L (5.9-8.4) gm/dL Albumin 2.5 L (3.2-5.2) gm/dL Assessment and Plan (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 Patient is counseled for laparotomy, which will be performed tomorrow. (2) Diabetes mellitus type 2, uncontrolled Status: Chronic Assessment and plan: Adequately controlled (3) Hypertension Status: Chronic (4) Hypothyroidism Status: Chronic (5) Myasthenia gravis Status: Chronic (6) LA (obstructive sleep apnea) Status: Chronic (7) Polyglandular autoimmune syndrome Status: Chronic (8) Hypocalcemia Status: Resolved (9) Small bowel obstruction, partial Status: Deleted - Time Spent With Patient Total time spent is greater than 50% in coordination of care (as documented) at patient's floor/unit and/or counseling patient:
[2020-02-06] MEDS ORDERED: MAGNESIUM SULFATE 4 GM/100 ML BAG IV ONE ×2 (17:30→20:39)
[2020-02-06] MEDS ORDERED: MAGNESIUM SULFATE 4 GM/100 ML BAG IV SCH (17:50)
[2020-02-07] MEDS: metroNIDAZOLE 500 MG/100 ML BAG IV SCH ×4 (00:58→18:17)
[2020-02-07] MEDS: 0.9 % SODIUM CHLORIDE 1,000 ML IV SCH ×3 (02:12→13:46)
[2020-02-07] MEDS: ONDANSETRON 4 MG/2 ML VIAL IV PRN ×2 (02:18→22:02)
[2020-02-07] MEDS: HYDROmorphone* 2 MG/ML VIAL IV PRN ×7 (02:21→21:53)
[2020-02-07] MEDS: LEVOTHYROXINE 100 MCG VIAL IV SCH (07:20)
[2020-02-07] MEDS: INSULIN LISPRO 1 UNIT/0.01 ML UNIT SQ SCH ×3 (07:23→22:16)
[2020-02-07] MEDS: CEFEPIME 1 GM VIAL IV SCH ×2 (08:42→21:53)
[2020-02-07] MEDS: CALCIUM GLUCONATE 9.3 MEQ in DEXTROSE 5% IN WATER 50 ML IV SCH (08:42)
[2020-02-07] MEDS: methylPREDNISolone SOD SUCC 125 MG/2 ML VIAL IV SCH (08:42)
[2020-02-07] MEDS ORDERED: DEXAMETHASONE 10 MG/ML VIAL IV ONE (09:15)
[2020-02-07] MEDS ORDERED: PHENYLEPHRINE 10 MG/ML VIAL IV ONE (09:15)
[2020-02-07] MEDS ORDERED: ROCURONIUM 10 MG/ML ML IV ONE (09:15)
[2020-02-07] MEDS ORDERED: GLYCOPYRROLATE 0.2 MG/ML VIAL IV ONE (09:15)
[2020-02-07] MEDS ORDERED: SUGAMMADEX SODIUM 200 MG/2 ML VIAL IV ONE (09:15)
[2020-02-07] MEDS ORDERED: LIDOCAINE HCL/PF 100 MG/5 ML SYRINGE IV ONE (09:15)
[2020-02-07] MEDS ORDERED: MAGNESIUM SULFATE 2 GM/50 ML BAG IV ONE (09:15)
[2020-02-07] MEDS ORDERED: SUCCINYLCHOLINE 20 MG/ML ML IV ONE (09:15)
[2020-02-07] MEDS ORDERED: PROPOFOL 200 MG/20 ML VIAL IV ONE (09:15)
[2020-02-07] MEDS ORDERED: ONDANSETRON 4 MG/2 ML VIAL IV ONE (09:15)
[2020-02-07] MEDS ORDERED: fentaNYL 100 MCG/2 ML VIAL IV ONE (09:15)
[2020-02-07] MEDS ORDERED: METOPROLOL TARTRATE 5 MG/5 ML VIAL IV ONE (09:15)
[2020-02-07] MEDS ORDERED: KETAMINE 100 MG/ML ML IV ONE (09:15)
[2020-02-07 09:50] LABS: Basophils # (Auto) 0.03 K/mcL (0.00-0.30); Basophils % (Auto) 0.4 % (0.0-2.0); Eosinophils # (Auto) 0.19 K/mcL (0.00-0.70); Eosinophils % (Auto) 2.6 % (0.0-7.0); Granulocytes % (Auto) 51.5 % (38.0-78.0); Hematocrit 36.2 % (34.1-44.9); Hemoglobin 11.6 g/dL (11.2-15.7); Lymphocytes # (Auto) 2.52 K/mcL (1.50-4.80); Lymphocytes % (Auto) 33.9 % (15.5-49.0); Mean Cell Volume 87.9 fL (80.0-100.0); Mean Platelet Volume 8.9 fL (7.4-10.4); Monocytes # (Auto) 0.86 K/mcL (0.10-0.90); Monocytes % (Auto) 11.6 % (1.0-12.0); Platelet Count 331 K/mcL (140-440); RBC 4.12 M/mcL (3.59-5.38); Red Cell Distribution Width 13.8 % (11.5-14.5); WBC 7.4 K/mcL (4.50-11.00)
[2020-02-07 10:15] LABS: ALT/SGPT 72 U/l (0-40); AST/SGOT 48 U/l (0-37); Albumin 2.6 gm/dL (3.2-5.2); Albumin/Globulin Ratio 1.1 (1.0-2.3); Alkaline Phosphatase 83 U/L (39-117); Bilirubin,Direct < 0.2 mg/dL (0.0-0.3); Bilirubin,Total 0.2 mg/dL (0.0-1.0); Blood Urea Nitrogen 3 mg/dl (6-20); Calcium 5.8 mg/dl (8.6-10.4); Carbon Dioxide 31 mmol/L (22-30); Chloride 99 mmol/L (96-108); Globulin 2.3 gm/dL (2.2-3.7); Glomerular Filtration Rate 100; Glucose 98 mg/dL (70-105); Lactate Dehydrogenase 407 U/L (94-250); Phosphorous 3.5 mg/dL (2.7-4.5); Triglycerides 135 mg/dl (<150); Uric Acid 4.4 mg/dL (2.5-8.0)
[2020-02-07] MEDS ORDERED: METHOCARBAMOL 1,000 MG/10 ML VIAL IV PRN (11:14)
[2020-02-07] MEDS ORDERED: ACETAMINOPHEN 1,000 MG/100 ML BOTTLE IV ONE ×2 (11:14→19:24)
[2020-02-07] MEDS ORDERED: BENZOCAINE/MENTHOL 1 LOZENGE PO PRN (11:14)
[2020-02-07] MEDS ORDERED: LABETALOL 5 MG/ML ML IV PRN (11:14)
[2020-02-07] MEDS ORDERED: NALOXONE HCL 0.4 MG/ML VIAL IV PRN (11:14)
[2020-02-07] MEDS ORDERED: METOPROLOL TARTRATE 5 MG/5 ML VIAL IV PRN (11:14)
[2020-02-07] MEDS ORDERED: HYDROmorphone* 2 MG/ML VIAL IV PRN (11:14)
[2020-02-07] MEDS ORDERED: IPRATROPIUM/ALBUTEROL 3 ML AMPUL.NEB NEB PRN (11:14)
[2020-02-07] MEDS ORDERED: LACTATED RINGERS 250 ML IV PRN (11:14)
[2020-02-07] MEDS ORDERED: FLUMAZENIL 0.1 MG/ML ML IV PRN (11:14)
[2020-02-07] MEDS ORDERED: LACTATED RINGERS 1,000 ML IV SCH (11:15)
[2020-02-07] MEDS ORDERED: GUM MASTIC/STORAX/MSAL/ALCOHOL 1 DOSE DROPERETTE TOPICAL ONE (11:28)
--- NOTE | 2020-02-07 11:40 | Brief Operative Note ---
Date of procedure: 02/07/20 Pre-op diagnosis: small bowel obstruction;chronic intestinal pseudoobstruction Post-op diagnosis: other (severe intestinal adhesions with ileal obstructionchronic intestinal pseudoobstruction) Procedure: exploratory laparotomy with extensive adhesiolysis Grafts/Implants: No Anesthesia: GETA Findings: total small bowel adhesive disease with area of complete obstruction at area of prior small bowel anastomosis and another area of near complete obstruction atof ileum a few cm proximal to the stoma Complications: none Surgeon: Bertha Currie Estimated blood loss (cc): 100 Specimens Removed/Pathology: none sent Condition: stable Disposition: PACU
[2020-02-07] MEDS ORDERED: PYRIDOSTIGMINE BROMIDE 10 MG/2 ML ML IM SCH (12:00)
[2020-02-07] MEDS: fentaNYL 100 MCG/2 ML VIAL IV PRN ×3 (12:19→12:25)
[2020-02-07] MEDS ORDERED: diphenhydrAMINE 50 MG/ML VIAL IV PRN (12:53)
[2020-02-07] MEDS ORDERED: BENZOCAINE 1 SPRAY BOTTLE TOPICAL PRN (12:53)
[2020-02-07] MEDS ORDERED: POTASSIUM PHOSPHATE 40 MEQ in DEXTROSE 5% IN WATER 500 ML IV ONE (12:53)
[2020-02-07] MEDS ORDERED: DEXTROSE 31 GM ORAL.SUSP PO PRN (12:53)
[2020-02-07] MEDS ORDERED: DEXTROSE 50% 50 ML VIAL IV PRN (12:53)
[2020-02-07] MEDS: ACETAMINOPHEN 1,000 MG in PREMIX 1 BAG IV SCH ×2 (13:46→19:25)
--- NOTE | 2020-02-07 13:56 | XRay Report ---
INDICATION: Post surgical TECHNIQUE: Supine abdomen. COMPARISON: Multiple previous examinations including most recent plain film study dated 02/06/2020 FINDINGS:Skin kori and a vertical midline incision. Bowel gas pattern is improved but not normal. There is decreased small bowel dilatation in the mid and right-sided abdomen. Persistent distention in the left side of the abdomen. Continued follow-up recommended. IMPRESSION: 1. Status post small bowel surgery 2. Improved bowel gas pattern as above Interpreted and Authenticated by: All Cormier 02/07/20
[2020-02-07] MEDS: PYRIDOSTIGMINE BROMIDE 10 MG/2 ML ML IM SCH (18:18)
[2020-02-07] MEDS: PROMETHAZINE 25 MG/ML VIAL IV PRN (19:11)
[2020-02-08] MEDS: INSULIN LISPRO 1 UNIT/0.01 ML UNIT SQ SCH ×5 (00:27→20:55)
[2020-02-08] MEDS: PYRIDOSTIGMINE BROMIDE 10 MG/2 ML ML IM SCH ×5 (00:34→23:53)
[2020-02-08] MEDS: HYDROmorphone* 2 MG/ML VIAL IV PRN ×11 (00:39→23:55)
[2020-02-08] MEDS: metroNIDAZOLE 500 MG/100 ML BAG IV SCH ×4 (00:42→19:44)
[2020-02-08] MEDS ORDERED: ACETAMINOPHEN 1,000 MG/100 ML BOTTLE IV ONE ×3 (01:45→21:01)
[2020-02-08] MEDS: ACETAMINOPHEN 1,000 MG in PREMIX 1 BAG IV SCH ×4 (01:45→21:15)
[2020-02-08] MEDS: 0.9 % SODIUM CHLORIDE 1,000 ML IV SCH ×4 (04:06→20:50)
[2020-02-08 06:22] LABS: Basophils # (Auto) 0.02 K/mcL (0.00-0.30); Basophils % (Auto) 0.2 % (0.0-2.0); Eosinophils # (Auto) 0.06 K/mcL (0.00-0.70); Eosinophils % (Auto) 0.6 % (0.0-7.0); Granulocytes % (Auto) 64.8 % (38.0-78.0); Hematocrit 35.2 % (34.1-44.9); Hemoglobin 11.4 g/dL (11.2-15.7); Lymphocytes # (Auto) 2.28 K/mcL (1.50-4.80); Lymphocytes % (Auto) 22.2 % (15.5-49.0); Mean Cell Volume 86.7 fL (80.0-100.0); Mean Corpuscular HGB Conc 32.4 g/dL (31.0-36.0); Mean Platelet Volume 9.3 fL (7.4-10.4); Monocytes # (Auto) 1.25 K/mcL (0.10-0.90); Monocytes % (Auto) 12.2 % (1.0-12.0); Platelet Count 278 K/mcL (140-440); RBC 4.06 M/mcL (3.59-5.38); Red Cell Distribution Width 14.3 % (11.5-14.5); WBC 10.3 K/mcL (4.50-11.00)
[2020-02-08 06:46] LABS: ALT/SGPT 47 U/l (0-40); AST/SGOT 23 U/l (0-37); Albumin 2.1 gm/dL (3.2-5.2); Albumin/Globulin Ratio 1.1 (1.0-2.3); Alkaline Phosphatase 68 U/L (39-117); Bilirubin,Direct < 0.2 mg/dL (0.0-0.3); Bilirubin,Total 0.3 mg/dL (0.0-1.0); Carbon Dioxide 31 mmol/L (22-30); Glomerular Filtration Rate 100; Glucose 110 mg/dL (70-105); Triglycerides 106 mg/dl (<150); Uric Acid 4.1 mg/dL (2.5-8.0)
[2020-02-08 06:51] LABS: Blood Urea Nitrogen 4 mg/dl (6-20); Calcium 5.6 mg/dl (8.6-10.4); Chloride 95 mmol/L (96-108); Lactate Dehydrogenase 502 U/L (94-250); Phosphorous 4.9 mg/dL (2.7-4.5)
[2020-02-08] MEDS ORDERED: POTASSIUM CHLORIDE 80 MEQ in DEXTROSE 5% IN WATER 1,000 ML IV ONE (07:46)
[2020-02-08] MEDS ORDERED: MAGNESIUM SULFATE 4 GM/100 ML BAG IV SCH ×2 (07:48→12:00)
[2020-02-08] MEDS ORDERED: CALCIUM GLUCONATE 4.65 MEQ/10 ML VIAL IV ONE (07:54)
[2020-02-08] MEDS ORDERED: CALCIUM GLUCONATE 9.3 MEQ in DEXTROSE 5% IN WATER 50 ML IV ONE (08:15)
[2020-02-08] MEDS: LEVOTHYROXINE 100 MCG VIAL IV SCH (08:25)
[2020-02-08] MEDS: CALCIUM GLUCONATE 9.3 MEQ in DEXTROSE 5% IN WATER 50 ML IV SCH (08:27)
[2020-02-08] MEDS: methylPREDNISolone SOD SUCC 125 MG/2 ML VIAL IV SCH (08:27)
[2020-02-08] MEDS: ONDANSETRON 4 MG/2 ML VIAL IV PRN (09:27)
[2020-02-08] MEDS: CEFEPIME 1 GM VIAL IV SCH ×2 (09:41→21:09)
--- NOTE | 2020-02-08 15:32 | General Surgery Progress Note ---
Subjective Patient reports: feels better, still having pain, diarrhea, afebrile Narrative: Note initiated : 02/08/20 at 3:29 pm Service Date, if different from initiated Date: [] Patient: Dayanna Guo 59 y/o F admitted on 02/01/20 for Abdominal Pain. Chief Complaint: [Patient is clinically stable. On postoperative day #1. She has had a small amount of stool through her stoma. She does not have significant distention. Her incision looks good. White blood count 10.3, hemoglobin 11.3, hematocrit 35.2, potassium 3.2, BUN 4, creatinine 0.6, calcium 5.6, magnesium 1.3] Objective Temp Pulse Resp BP Pulse Ox 98.1 F 77 18 106/60 92 02/08/20 12:00 02/08/20 12:00 02/08/20 12:00 02/08/20 12:00 02/08/20 12:00 - Additional Data Intake & Output - Last 24 hours: Intake & Output 02/06/20 02/07/20 02/08/20 02/09/20 05:59 05:59 05:59 05:59 Intake Total 2670 2760 3160 1840 Output Total 2225 3870 5250 1500 Balance 802 -1658 -9879 340 Weight 220 lb 223 lb 8 oz 223 lb 3.2 oz 223 lb 3.2 oz - General physical appearance well developed, well nourished, moderate distress, moderate pain - Eyes PERRL, normal ocular movement - ENT normal pinna, normal nares, normal mucosa, no hearing loss, no congestion - Neck no masses, no bruits, trachea midline, no lymphadenopathy, no venous distension - Respiratory normal expansion, normal respiratory effort, clear to auscultation - Cardiovascular Cardiovascular exam: Present: normal rate and rhythm, RRR, +S1, +S2. Absent: JVD, tachycardia - Abdomen tender (mild incisional tenderness; good active bowel sounds; stoma is healthy) - Integumentary no rash, no growths, no abnormal pigmentation - Neurologic normal coordination, normal sensation - Musculoskeletal normal gait, normal posture - Psychiatric oriented to time, oriented to person, oriented to place, speech is normal, memory intact - Labs 02/08/20 05:05 02/08/20 05:05 Diabetes panel 02/08/20 Range/Units 05:05 Sodium 139 (133-145) mmol/L Potassium 3.2 L (3.3-5.1) mmol/L Chloride 95 L (96-108) mmol/L Carbon Dioxide 31 H (22-30) mmol/L BUN 4 L (6-20) mg/dl Creatinine 0.6 (0.6-1.1) mg/dl Glucose 110 H (70-105) mg/dL Calcium 5.6 L* (8.6-10.4) mg/dl AST 23 (0-37) U/l ALT 47 H (0-40) U/l Alkaline Phosphatase 68 (39-117) U/L Total Protein 4.1 L (5.9-8.4) gm/dL Albumin 2.1 L (3.2-5.2) gm/dL Triglycerides 106 (<150) mg/dl Calcium panel 02/08/20 Range/Units 05:05 Calcium 5.6 L* (8.6-10.4) mg/dl Phosphorus 4.9 H (2.7-4.5) mg/dL Albumin 2.1 L (3.2-5.2) gm/dL Pituitary panel 02/08/20 Range/Units 05:05 Sodium 139 (133-145) mmol/L Potassium 3.2 L (3.3-5.1) mmol/L Chloride 95 L (96-108) mmol/L Carbon Dioxide 31 H (22-30) mmol/L BUN 4 L (6-20) mg/dl Creatinine 0.6 (0.6-1.1) mg/dl Glucose 110 H (70-105) mg/dL Calcium 5.6 L* (8.6-10.4) mg/dl Adrenal panel 02/08/20 Range/Units 05:05 Sodium 139 (133-145) mmol/L Potassium 3.2 L (3.3-5.1) mmol/L Chloride 95 L (96-108) mmol/L Carbon Dioxide 31 H (22-30) mmol/L BUN 4 L (6-20) mg/dl Creatinine 0.6 (0.6-1.1) mg/dl Glucose 110 H (70-105) mg/dL Calcium 5.6 L* (8.6-10.4) mg/dl Total Bilirubin 0.3 (0.0-1.0) mg/dL AST 23 (0-37) U/l ALT 47 H (0-40) U/l Alkaline Phosphatase 68 (39-117) U/L Total Protein 4.1 L (5.9-8.4) gm/dL Albumin 2.1 L (3.2-5.2) gm/dL Assessment and Plan (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 Osorio vela 1 Current Visit: Yes (2) Diabetes mellitus type 2, uncontrolled Status: Chronic Assessment and plan: Adequately controlled Current Visit: No (3) Hypertension Status: Chronic Current Visit: No (4) Hypothyroidism Status: Chronic Current Visit: No (5) Myasthenia gravis Status: Chronic Current Visit: No (6) LA (obstructive sleep apnea) Status: Chronic Current Visit: No (7) Polyglandular autoimmune syndrome Status: Chronic Current Visit: No (8) Hypocalcemia Status: Resolved Current Visit: No (9) Small bowel obstruction, partial Status: Resolved Current Visit: No - Time Spent With Patient Total time spent is greater than 50% in coordination of care (as documented) at patient's floor/unit and/or counseling patient:
[2020-02-09] MEDS: metroNIDAZOLE 500 MG/100 ML BAG IV SCH ×4 (00:20→18:24)
[2020-02-09] MEDS: ACETAMINOPHEN 1,000 MG/100 ML BOTTLE IV SCH ×4 (02:01→20:15)
[2020-02-09] MEDS: HYDROmorphone* 2 MG/ML VIAL IV PRN ×10 (02:01→22:32)
[2020-02-09] MEDS: 0.9 % SODIUM CHLORIDE 1,000 ML IV SCH ×2 (04:18→17:15)
[2020-02-09] MEDS: PYRIDOSTIGMINE BROMIDE 10 MG/2 ML ML IM SCH ×3 (05:42→18:25)
[2020-02-09 06:30] LABS: Basophils # (Auto) 0.02 K/mcL (0.00-0.30); Basophils % (Auto) 0.2 % (0.0-2.0); Eosinophils % (Auto) 3.7 % (0.0-7.0); Granulocytes % (Auto) 58.3 % (38.0-78.0); Hematocrit 32.7 % (34.1-44.9); Hemoglobin 10.3 g/dL (11.2-15.7); Lymphocytes # (Auto) 2.04 K/mcL (1.50-4.80); Lymphocytes % (Auto) 25.2 % (15.5-49.0); Mean Cell Volume 87.4 fL (80.0-100.0); Mean Corpuscular HGB Conc 31.5 g/dL (31.0-36.0); Mean Platelet Volume 9.5 fL (7.4-10.4); Monocytes # (Auto) 1.02 K/mcL (0.10-0.90); Monocytes % (Auto) 12.6 % (1.0-12.0); Platelet Count 294 K/mcL (140-440); RBC 3.74 M/mcL (3.59-5.38); Red Cell Distribution Width 14.4 % (11.5-14.5); WBC 8.1 K/mcL (4.50-11.00)
[2020-02-09 06:56] LABS: ALT/SGPT 31 U/l (0-40); AST/SGOT 10 U/l (0-37); Alkaline Phosphatase 58 U/L (39-117); Bilirubin,Direct < 0.2 mg/dL (0.0-0.3); Bilirubin,Total 0.3 mg/dL (0.0-1.0); Blood Urea Nitrogen 5 mg/dl (6-20); Calcium 6.2 mg/dl (8.6-10.4); Carbon Dioxide 35 mmol/L (22-30); Chloride 95 mmol/L (96-108); Glomerular Filtration Rate 100; Glucose 101 mg/dL (70-105); Lactate Dehydrogenase 356 U/L (94-250); Phosphorous 3.7 mg/dL (2.7-4.5); Triglycerides 99 mg/dl (<150); Uric Acid 3.8 mg/dL (2.5-8.0)
[2020-02-09] MEDS: INSULIN LISPRO 1 UNIT/0.01 ML UNIT SQ SCH ×4 (07:59→20:37)
[2020-02-09] MEDS: LEVOTHYROXINE 100 MCG VIAL IV SCH (08:43)
[2020-02-09] MEDS: methylPREDNISolone SOD SUCC 125 MG/2 ML VIAL IV SCH (08:44)
[2020-02-09] MEDS: CEFEPIME 1 GM VIAL IV SCH ×2 (09:05→21:20)
[2020-02-09] MEDS: CALCIUM GLUCONATE 9.3 MEQ in DEXTROSE 5% IN WATER 50 ML IV SCH (09:06)
--- NOTE | 2020-02-09 14:12 | General Surgery Progress Note ---
Subjective Patient reports: feels better, pain is less, no flatus, no bowel movement, afebrile Narrative: Note initiated : 02/09/20 at 2:10 pm Service Date, if different from initiated Date: [] Patient: Dayanna Guo 59 y/o F admitted on 02/01/20 for Abdominal Pain. Chief Complaint: [patient is well. Her abdominal discomfort is improved. She has not had flatus and stool. White blood count 8.1, hemoglobin 10.3, hematocrit 32.7, potassium 3.7, calcium 6.2, magnesium 2, phosphorus 3.] Objective Temp Pulse Resp BP Pulse Ox 98.1 F 61 18 126/73 93 02/09/20 12:00 02/09/20 12:00 02/09/20 12:00 02/09/20 12:00 02/09/20 12:00 - Additional Data Intake & Output - Last 24 hours: Intake & Output 02/07/20 02/08/20 02/09/20 02/10/20 05:59 05:59 05:59 05:59 Intake Total 2760 3260 6812.0909 570 Output Total 3870 5250 4795 1100 Balance -1109 2017.0909 -530 Weight 223 lb 8 oz 223 lb 3.2 oz 220 lb - General physical appearance well nourished, no distress, moderate pain, chronically ill - Eyes PERRL, normal ocular movement - ENT normal pinna, normal nares, normal mucosa, no hearing loss, no congestion - Neck no masses, no bruits, trachea midline, no lymphadenopathy, no venous distension - Respiratory normal expansion, normal respiratory effort, clear to auscultation - Cardiovascular Cardiovascular exam: Present: normal rate and rhythm, RRR, +S1, +S2. Absent: JVD, tachycardia - Abdomen tender (mild incisional tenderness; good abdominal sounds) - Integumentary no rash, no growths, no abnormal pigmentation - Neurologic normal coordination, normal sensation - Musculoskeletal normal gait, normal posture - Psychiatric oriented to time, oriented to person, oriented to place, speech is normal, memory intact - Labs 02/09/20 05:45 02/09/20 05:45 Diabetes panel 02/09/20 Range/Units 05:45 Sodium 140 (133-145) mmol/L Potassium 3.7 (3.3-5.1) mmol/L Chloride 95 L (96-108) mmol/L Carbon Dioxide 35 H (22-30) mmol/L BUN 5 L (6-20) mg/dl Creatinine 0.6 (0.6-1.1) mg/dl Glucose 101 (70-105) mg/dL Calcium 6.2 L (8.6-10.4) mg/dl AST 10 (0-37) U/l ALT 31 (0-40) U/l Alkaline Phosphatase 58 (39-117) U/L Total Protein 4.0 L (5.9-8.4) gm/dL Albumin 2.0 L (3.2-5.2) gm/dL Triglycerides 99 (<150) mg/dl Calcium panel 02/09/20 Range/Units 05:45 Calcium 6.2 L (8.6-10.4) mg/dl Phosphorus 3.7 (2.7-4.5) mg/dL Albumin 2.0 L (3.2-5.2) gm/dL Pituitary panel 02/09/20 Range/Units 05:45 Sodium 140 (133-145) mmol/L Potassium 3.7 (3.3-5.1) mmol/L Chloride 95 L (96-108) mmol/L Carbon Dioxide 35 H (22-30) mmol/L BUN 5 L (6-20) mg/dl Creatinine 0.6 (0.6-1.1) mg/dl Glucose 101 (70-105) mg/dL Calcium 6.2 L (8.6-10.4) mg/dl Adrenal panel 02/09/20 Range/Units 05:45 Sodium 140 (133-145) mmol/L Potassium 3.7 (3.3-5.1) mmol/L Chloride 95 L (96-108) mmol/L Carbon Dioxide 35 H (22-30) mmol/L BUN 5 L (6-20) mg/dl Creatinine 0.6 (0.6-1.1) mg/dl Glucose 101 (70-105) mg/dL Calcium 6.2 L (8.6-10.4) mg/dl Total Bilirubin 0.3 (0.0-1.0) mg/dL AST 10 (0-37) U/l ALT 31 (0-40) U/l Alkaline Phosphatase 58 (39-117) U/L Total Protein 4.0 L (5.9-8.4) gm/dL Albumin 2.0 L (3.2-5.2) gm/dL Assessment and Plan (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 Osorio vela 1 Current Visit: Yes (2) Diabetes mellitus type 2, uncontrolled Status: Chronic Assessment and plan: Adequately controlled Current Visit: No (3) Hypertension Status: Chronic Current Visit: No (4) Hypothyroidism Status: Chronic Current Visit: No (5) Myasthenia gravis Status: Chronic Current Visit: No (6) LA (obstructive sleep apnea) Status: Chronic Current Visit: No (7) Polyglandular autoimmune syndrome Status: Chronic Current Visit: No (8) Hypocalcemia Status: Resolved Current Visit: No (9) Small bowel obstruction, partial Status: Resolved Current Visit: No - Time Spent With Patient Total time spent is greater than 50% in coordination of care (as documented) at patient's floor/unit and/or counseling patient:
[2020-02-10] MEDS: metroNIDAZOLE 500 MG/100 ML BAG IV SCH ×5 (00:10→23:49)
[2020-02-10] MEDS: PYRIDOSTIGMINE BROMIDE 10 MG/2 ML ML IM SCH ×5 (00:10→23:48)
[2020-02-10] MEDS: ACETAMINOPHEN 1,000 MG/100 ML BOTTLE IV SCH ×4 (01:55→20:15)
[2020-02-10] MEDS: HYDROmorphone* 2 MG/ML VIAL IV PRN ×3 (02:01→07:14)
[2020-02-10] MEDS: 0.9 % SODIUM CHLORIDE 1,000 ML IV SCH ×5 (04:27→21:32)
[2020-02-10 06:31] LABS: Basophils # (Auto) 0.01 K/mcL (0.00-0.30); Basophils % (Auto) 0.2 % (0.0-2.0); Eosinophils # (Auto) 0.41 K/mcL (0.00-0.70); Eosinophils % (Auto) 6.5 % (0.0-7.0); Granulocytes % (Auto) 52.4 % (38.0-78.0); Hematocrit 30.9 % (34.1-44.9); Hemoglobin 9.7 g/dL (11.2-15.7); Lymphocytes % (Auto) 28.4 % (15.5-49.0); Mean Corpuscular HGB Conc 31.4 g/dL (31.0-36.0); Mean Platelet Volume 9.5 fL (7.4-10.4); Monocytes # (Auto) 0.79 K/mcL (0.10-0.90); Monocytes % (Auto) 12.5 % (1.0-12.0); Platelet Count 302 K/mcL (140-440); RBC 3.51 M/mcL (3.59-5.38); Red Cell Distribution Width 14.5 % (11.5-14.5); WBC 6.3 K/mcL (4.50-11.00)
--- NOTE | 2020-02-10 06:33 | XRay Report ---
CLINICAL INFORMATION: FOLLOW -UP OF SMALL BOWEL OBSTRUCTION COMPARISON: 02/07/2020 FINDINGS: NG tube is looped in the gastric body in satisfactory position. The stomach and multiple loops of upper small bowel are mildly dilated with air-fluid levels and a small amount of gas in the distal small bowel. Known total colectomy changes appreciated. No soft tissue mass or free air IMPRESSION: Recurrent partial small bowel obstruction Interpreted and Authenticated by: All Lundberg 02/10/20
[2020-02-10 06:40] LABS: ALT/SGPT 24 U/l (0-40); AST/SGOT 9 U/l (0-37); Alkaline Phosphatase 54 U/L (39-117); Bilirubin,Direct < 0.2 mg/dL (0.0-0.3); Bilirubin,Total 0.2 mg/dL (0.0-1.0); Carbon Dioxide 34 mmol/L (22-30); Chloride 97 mmol/L (96-108); Globulin 2.1 gm/dL (2.2-3.7); Glomerular Filtration Rate 107; Glucose 85 mg/dL (70-105); Lactate Dehydrogenase 345 U/L (94-250); Phosphorous 3.7 mg/dL (2.7-4.5); Triglycerides 86 mg/dl (<150); Uric Acid 4.4 mg/dL (2.5-8.0)
[2020-02-10 06:41] LABS: Blood Urea Nitrogen 7 mg/dl (6-20)
[2020-02-10] MEDS: methylPREDNISolone SOD SUCC 125 MG/2 ML VIAL IV SCH (07:14)
[2020-02-10] MEDS: HYDROmorphone 1 MG/ML SYRINGE IV PRN ×7 (07:15→23:47)
[2020-02-10] MEDS: LEVOTHYROXINE 100 MCG VIAL IV SCH (07:15)
[2020-02-10] MEDS: INSULIN LISPRO 1 UNIT/0.01 ML UNIT SQ SCH ×4 (07:50→21:44)
[2020-02-10] MEDS: CEFEPIME 1 GM VIAL IV SCH ×2 (09:36→21:45)
[2020-02-10] MEDS: CALCIUM GLUCONATE 9.3 MEQ in DEXTROSE 5% IN WATER 50 ML IV SCH (12:40)
[2020-02-10] MEDS ORDERED: MAGNESIUM SULFATE 4 GM/100 ML BAG IV ONE ×2 (13:00→17:00)
--- NOTE | 2020-02-10 13:51 | General Surgery Progress Note ---
Subjective Patient reports: feels better, pain is less, flatus, bowel movement, diarrhea, afebrile Narrative: Note initiated : 02/10/20 at 1:49 pm Service Date, if different from initiated Date: [] Patient: Dayanna Guo 59 y/o F admitted on 02/01/20 for Abdominal Pain. Chief Complaint: [GRADUAL INCREASE OF LIQUID STOOL VIA STOMA;INCISION LOOKE [place]] Objective Temp Pulse Resp BP Pulse Ox 98.3 F 81 14 165/84 94 02/10/20 08:00 02/10/20 08:00 02/10/20 08:00 02/10/20 08:00 02/10/20 08:00 - Additional Data Intake & Output - Last 24 hours: Intake & Output 02/08/20 02/09/20 02/10/20 02/11/20 05:59 05:59 05:59 05:59 Intake Total 3260 6812.0909 3640 200 Output Total 5250 4795 3765 Balance -1989 - 200 Weight 223 lb 3.2 oz 220 lb 215 lb 8 oz - General physical appearance well developed, well nourished, no distress - Eyes PERRL, normal ocular movement - ENT normal pinna, normal nares, normal mucosa, no hearing loss, no congestion - Neck no masses, no bruits, trachea midline, no lymphadenopathy, no venous distension - Respiratory normal expansion, normal respiratory effort, clear to auscultation - Abdomen non tender, bowel sounds (present), surgical scars (none), masses (none) - Genitourinary normal external genitalia, normal perineum - Rectum normal sphincter tone, no hemorrhoids, no tenderness, no masses, no bleeding - Integumentary no rash, no growths, no abnormal pigmentation - Neurologic normal coordination, normal sensation - Musculoskeletal normal gait, normal posture - Psychiatric oriented to time, oriented to person, oriented to place, speech is normal, memory intact - Labs 02/10/20 05:20 02/10/20 05:20 Diabetes panel 02/10/20 Range/Units 05:20 Sodium 142 (133-145) mmol/L Potassium 3.5 (3.3-5.1) mmol/L Chloride 97 (96-108) mmol/L Carbon Dioxide 34 H (22-30) mmol/L BUN 7 (6-20) mg/dl Creatinine 0.5 L (0.6-1.1) mg/dl Glucose 85 (70-105) mg/dL Calcium 6.0 L (8.6-10.4) mg/dl AST 9 (0-37) U/l ALT 24 (0-40) U/l Alkaline Phosphatase 54 (39-117) U/L Total Protein 4.1 L (5.9-8.4) gm/dL Albumin 2.0 L (3.2-5.2) gm/dL Triglycerides 86 (<150) mg/dl Calcium panel 02/10/20 Range/Units 05:20 Calcium 6.0 L (8.6-10.4) mg/dl Phosphorus 3.7 (2.7-4.5) mg/dL Albumin 2.0 L (3.2-5.2) gm/dL Pituitary panel 02/10/20 Range/Units 05:20 Sodium 142 (133-145) mmol/L Potassium 3.5 (3.3-5.1) mmol/L Chloride 97 (96-108) mmol/L Carbon Dioxide 34 H (22-30) mmol/L BUN 7 (6-20) mg/dl Creatinine 0.5 L (0.6-1.1) mg/dl Glucose 85 (70-105) mg/dL Calcium 6.0 L (8.6-10.4) mg/dl Adrenal panel 02/10/20 Range/Units 05:20 Sodium 142 (133-145) mmol/L Potassium 3.5 (3.3-5.1) mmol/L Chloride 97 (96-108) mmol/L Carbon Dioxide 34 H (22-30) mmol/L BUN 7 (6-20) mg/dl Creatinine 0.5 L (0.6-1.1) mg/dl Glucose 85 (70-105) mg/dL Calcium 6.0 L (8.6-10.4) mg/dl Total Bilirubin 0.2 (0.0-1.0) mg/dL AST 9 (0-37) U/l ALT 24 (0-40) U/l Alkaline Phosphatase 54 (39-117) U/L Total Protein 4.1 L (5.9-8.4) gm/dL Albumin 2.0 L (3.2-5.2) gm/dL Assessment and Plan (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 K rider 1 Current Visit: Yes (2) Diabetes mellitus type 2, uncontrolled Status: Chronic Assessment and plan: Adequately controlled Current Visit: No (3) Hypertension Status: Chronic Current Visit: No (4) Hypothyroidism Status: Chronic Current Visit: No (5) Myasthenia gravis Status: Chronic Current Visit: No (6) LA (obstructive sleep apnea) Status: Chronic Current Visit: No (7) Polyglandular autoimmune syndrome Status: Chronic Current Visit: No (8) Hypocalcemia Status: Resolved Current Visit: No (9) Small bowel obstruction, partial Status: Resolved Current Visit: No - Time Spent With Patient Total time spent is greater than 50% in coordination of care (as documented) at patient's floor/unit and/or counseling patient:
[2020-02-11] MEDS: 0.9 % SODIUM CHLORIDE 1,000 ML IV SCH ×4 (01:33→22:43)
[2020-02-11] MEDS: ACETAMINOPHEN 1,000 MG/100 ML BOTTLE IV SCH ×4 (02:10→23:15)
[2020-02-11] MEDS: HYDROmorphone 1 MG/ML SYRINGE IV PRN ×8 (02:16→22:17)
[2020-02-11] MEDS: metroNIDAZOLE 500 MG/100 ML BAG IV SCH ×4 (05:22→23:45)
[2020-02-11] MEDS: PYRIDOSTIGMINE BROMIDE 10 MG/2 ML ML IM SCH ×4 (05:22→23:45)
--- NOTE | 2020-02-11 06:05 | XRay Report ---
CLINICAL INFORMATION: FOLLOW -UP OF SMALL BOWEL OBSTRUCTION COMPARISON: 02/10/2020 FINDINGS: NG tube is been placed and is coiled in the gastric fundus. Stomach is decompressed. There is a few loops of small bowel in the upper abdomen which are mildly dilated with air-fluid levels patible with partial decompression since prior exam. The distal small bowel is decreased caliber. No free air or soft tissue mass. IMPRESSION: Improving partial small bowel obstruction Interpreted and Authenticated by: All Lundberg 02/11/20
[2020-02-11 06:13] LABS: Basophils # (Auto) 0.02 K/mcL (0.00-0.30); Basophils % (Auto) 0.3 % (0.0-2.0); Eosinophils # (Auto) 0.22 K/mcL (0.00-0.70); Eosinophils % (Auto) 3.2 % (0.0-7.0); Granulocytes % (Auto) 55.3 % (38.0-78.0); Hematocrit 33.9 % (34.1-44.9); Hemoglobin 10.6 g/dL (11.2-15.7); Lymphocytes % (Auto) 30.8 % (15.5-49.0); Mean Cell Volume 86.5 fL (80.0-100.0); Mean Corpuscular HGB Conc 31.3 g/dL (31.0-36.0); Mean Platelet Volume 9.2 fL (7.4-10.4); Monocytes # (Auto) 0.71 K/mcL (0.10-0.90); Monocytes % (Auto) 10.4 % (1.0-12.0); Platelet Count 315 K/mcL (140-440); RBC 3.92 M/mcL (3.59-5.38); Red Cell Distribution Width 14.2 % (11.5-14.5); WBC 6.8 K/mcL (4.50-11.00)
[2020-02-11] MEDS: PROMETHAZINE 25 MG/ML VIAL IV PRN (06:36)
[2020-02-11 06:47] LABS: ALT/SGPT 21 U/l (0-40); AST/SGOT 9 U/l (0-37); Albumin 2.3 gm/dL (3.2-5.2); Albumin/Globulin Ratio 0.9 (1.0-2.3); Alkaline Phosphatase 79 U/L (39-117); Bilirubin,Direct < 0.2 mg/dL (0.0-0.3); Bilirubin,Total 0.2 mg/dL (0.0-1.0); Blood Urea Nitrogen 5 mg/dl (6-20); Calcium 6.1 mg/dl (8.6-10.4); Carbon Dioxide 30 mmol/L (22-30); Chloride 92 mmol/L (96-108); Globulin 2.6 gm/dL (2.2-3.7); Glomerular Filtration Rate 107; Glucose 95 mg/dL (70-105); Lactate Dehydrogenase 402 U/L (94-250); Phosphorous 2.7 mg/dL (2.7-4.5); Triglycerides 126 mg/dl (<150); Uric Acid 4.7 mg/dL (2.5-8.0)
[2020-02-11] MEDS: methylPREDNISolone SOD SUCC 125 MG/2 ML VIAL IV SCH (08:09)
[2020-02-11] MEDS: LEVOTHYROXINE 100 MCG VIAL IV SCH (08:10)
[2020-02-11] MEDS: INSULIN LISPRO 1 UNIT/0.01 ML UNIT SQ SCH ×4 (08:40→21:06)
[2020-02-11] MEDS: CALCIUM GLUCONATE 9.3 MEQ in DEXTROSE 5% IN WATER 50 ML IV SCH (11:09)
[2020-02-11] MEDS: CEFEPIME 1 GM VIAL IV SCH ×2 (12:03→21:07)
--- NOTE | 2020-02-11 17:21 | General Surgery Progress Note ---
Subjective Patient reports: feels better, pain is less, flatus, bowel movement, diarrhea, afebrile Narrative: Note initiated : 02/11/20 at 5:19 pm Service Date, if different from initiated Date: [] Patient: Dayanna Guo 59 y/o F admitted on 02/01/20 for Abdominal Pain. Chief Complaint: [the patient is feeling better. She has less discomfort. Most of her pain is joint pain. She has some output through her stoma. X-rays today are significantly improved. White blood count 6.8, hemoglobin 10.6, hematocrit 33.9, phosphorus 2.7, magnesium 2.2] Objective Temp Pulse Resp BP Pulse Ox 97.9 F 88 12 149/92 93 02/11/20 12:00 02/11/20 12:00 02/11/20 12:00 02/11/20 12:00 02/11/20 12:00 - Additional Data Intake & Output - Last 24 hours: Intake & Output 02/09/20 02/10/20 02/11/20 02/12/20 05:59 05:59 05:59 05:59 Intake Total 6812.0909 3640 3670 1490 Output Total 4795 3765 3850 1250 Balance 2017.0909 -125 -180 240 Weight 220 lb 215 lb 8 oz 210 lb - General physical appearance well developed, well nourished, no distress - Eyes PERRL, normal ocular movement - ENT normal pinna, normal nares, normal mucosa, no hearing loss, no congestion - Neck no masses, no bruits, trachea midline, no lymphadenopathy, no venous distension - Respiratory normal expansion, normal respiratory effort, clear to auscultation - Cardiovascular Cardiovascular exam: Present: normal rate and rhythm, RRR, +S1, +S2. Absent: JVD, tachycardia - Abdomen non tender, bowel sounds (present), surgical scars (none), masses (none) - Integumentary no rash, no growths, no abnormal pigmentation - Neurologic normal coordination, normal sensation - Musculoskeletal normal gait, normal posture - Psychiatric oriented to time, oriented to person, oriented to place, speech is normal, memory intact - Labs 02/11/20 05:30 02/11/20 05:30 Diabetes panel 02/11/20 Range/Units 05:30 Sodium 137 (133-145) mmol/L Potassium 3.3 (3.3-5.1) mmol/L Chloride 92 L (96-108) mmol/L Carbon Dioxide 30 (22-30) mmol/L BUN 5 L (6-20) mg/dl Creatinine 0.5 L (0.6-1.1) mg/dl Glucose 95 (70-105) mg/dL Calcium 6.1 L (8.6-10.4) mg/dl AST 9 (0-37) U/l ALT 21 (0-40) U/l Alkaline Phosphatase 79 (39-117) U/L Total Protein 4.9 L (5.9-8.4) gm/dL Albumin 2.3 L (3.2-5.2) gm/dL Triglycerides 126 (<150) mg/dl Calcium panel 02/11/20 Range/Units 05:30 Calcium 6.1 L (8.6-10.4) mg/dl Phosphorus 2.7 (2.7-4.5) mg/dL Albumin 2.3 L (3.2-5.2) gm/dL Pituitary panel 02/11/20 Range/Units 05:30 Sodium 137 (133-145) mmol/L Potassium 3.3 (3.3-5.1) mmol/L Chloride 92 L (96-108) mmol/L Carbon Dioxide 30 (22-30) mmol/L BUN 5 L (6-20) mg/dl Creatinine 0.5 L (0.6-1.1) mg/dl Glucose 95 (70-105) mg/dL Calcium 6.1 L (8.6-10.4) mg/dl Adrenal panel 02/11/20 Range/Units 05:30 Sodium 137 (133-145) mmol/L Potassium 3.3 (3.3-5.1) mmol/L Chloride 92 L (96-108) mmol/L Carbon Dioxide 30 (22-30) mmol/L BUN 5 L (6-20) mg/dl Creatinine 0.5 L (0.6-1.1) mg/dl Glucose 95 (70-105) mg/dL Calcium 6.1 L (8.6-10.4) mg/dl Total Bilirubin 0.2 (0.0-1.0) mg/dL AST 9 (0-37) U/l ALT 21 (0-40) U/l Alkaline Phosphatase 79 (39-117) U/L Total Protein 4.9 L (5.9-8.4) gm/dL Albumin 2.3 L (3.2-5.2) gm/dL Assessment and Plan (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 K rider 1 She start MiraLAX and apple juice 4 doses. Follow-up abdominal x-rays in the morning Current Visit: Yes (2) Diabetes mellitus type 2, uncontrolled Status: Chronic Assessment and plan: Adequately controlled Current Visit: No (3) Hypertension Status: Chronic Current Visit: No (4) Hypothyroidism Status: Chronic Current Visit: No (5) Myasthenia gravis Status: Chronic Current Visit: No (6) LA (obstructive sleep apnea) Status: Chronic Current Visit: No (7) Polyglandular autoimmune syndrome Status: Chronic Current Visit: No (8) Hypocalcemia Status: Resolved Current Visit: No (9) Small bowel obstruction, partial Status: Resolved Current Visit: No - Time Spent With Patient Total time spent is greater than 50% in coordination of care (as documented) at patient's floor/unit and/or counseling patient:
[2020-02-11] MEDS: POLYETHYLENE GLYCOL 3350 17 GM PACKET PO SCH (21:33)
[2020-02-12] MEDS: HYDROmorphone 1 MG/ML SYRINGE IV PRN ×10 (00:25→22:08)
[2020-02-12] MEDS: ONDANSETRON 4 MG/2 ML VIAL IV PRN ×2 (00:25→06:04)
[2020-02-12] MEDS: POLYETHYLENE GLYCOL 3350 17 GM PACKET PO SCH ×3 (01:00→09:45)
[2020-02-12] MEDS: 0.9 % SODIUM CHLORIDE 1,000 ML IV SCH ×2 (03:39→14:52)
[2020-02-12] MEDS: ACETAMINOPHEN 1,000 MG/100 ML BOTTLE IV SCH ×4 (04:50→19:22)
[2020-02-12] MEDS: metroNIDAZOLE 500 MG/100 ML BAG IV SCH ×4 (05:24→23:35)
[2020-02-12] MEDS: PYRIDOSTIGMINE BROMIDE 10 MG/2 ML ML IM SCH ×4 (05:46→23:35)
[2020-02-12 06:20] LABS: Basophils # (Auto) 0.02 K/mcL (0.00-0.30); Basophils % (Auto) 0.3 % (0.0-2.0); Eosinophils # (Auto) 0.17 K/mcL (0.00-0.70); Eosinophils % (Auto) 2.8 % (0.0-7.0); Granulocytes % (Auto) 48.1 % (38.0-78.0); Lymphocytes # (Auto) 2.16 K/mcL (1.50-4.80); Lymphocytes % (Auto) 35.7 % (15.5-49.0); Mean Cell Volume 86.7 fL (80.0-100.0); Mean Corpuscular HGB Conc 31.3 g/dL (31.0-36.0); Mean Platelet Volume 9.6 fL (7.4-10.4); Monocytes # (Auto) 0.79 K/mcL (0.10-0.90); Monocytes % (Auto) 13.1 % (1.0-12.0); Platelet Count 305 K/mcL (140-440); RBC 3.69 M/mcL (3.59-5.38); Red Cell Distribution Width 14.2 % (11.5-14.5); WBC 6.1 K/mcL (4.50-11.00)
[2020-02-12 06:49] LABS: Bilirubin,Direct < 0.2 mg/dL (0.0-0.3)
[2020-02-12 06:51] LABS: ALT/SGPT 17 U/l (0-40); AST/SGOT 11 U/l (0-37); Albumin 2.4 gm/dL (3.2-5.2); Albumin/Globulin Ratio 1.1 (1.0-2.3); Alkaline Phosphatase 81 U/L (39-117); Bilirubin,Total 0.2 mg/dL (0.0-1.0); Blood Urea Nitrogen 5 mg/dl (6-20); Calcium 5.7 mg/dl (8.6-10.4); Carbon Dioxide 33 mmol/L (22-30); Chloride 95 mmol/L (96-108); Globulin 2.2 gm/dL (2.2-3.7); Glomerular Filtration Rate 107; Glucose 99 mg/dL (70-105); Lactate Dehydrogenase 432 U/L (94-250); Phosphorous 3.4 mg/dL (2.7-4.5); Triglycerides 155 mg/dl (<150); Uric Acid 5.4 mg/dL (2.5-8.0)
[2020-02-12] MEDS ORDERED: POTASSIUM PHOSPHATE 40 MEQ in DEXTROSE 5% IN WATER 500 ML IV ONE (07:26)
[2020-02-12] MEDS: LEVOTHYROXINE 100 MCG VIAL IV SCH (08:27)
[2020-02-12] MEDS: INSULIN LISPRO 1 UNIT/0.01 ML UNIT SQ SCH ×4 (08:57→20:46)
[2020-02-12] MEDS ORDERED: CALCIUM GLUCONATE 4.65 MEQ/10 ML VIAL IV ONE (08:59)
--- NOTE | 2020-02-12 09:14 | XRay Report ---
CLINICAL INFORMATION: FOLLOW -UP OF SMALL BOWEL OBSTRUCTION COMPARISON: 04/12/2020 FINDINGS: NG tube remains in stable satisfactory position. Stomach is decompressed. Loops of small bowel in the upper central abdomen are mildly dilated but decreased in caliber from yesterday's study. There is more gas in the distal small bowel loops. No free air IMPRESSION: Improving partial small bowel obstruction Interpreted and Authenticated by: All Lundberg 02/12/20
[2020-02-12] MEDS ORDERED: CALCIUM GLUCONATE 9.3 MEQ in DEXTROSE 5% IN WATER 50 ML IV ONE (09:15)
[2020-02-12] MEDS: CALCIUM GLUCONATE 9.3 MEQ in DEXTROSE 5% IN WATER 50 ML IV SCH (09:31)
[2020-02-12] MEDS: MAGNESIUM SULFATE 4 GM/100 ML BAG IV SCH ×2 (09:35→11:50)
[2020-02-12] MEDS: CEFEPIME 1 GM VIAL IV SCH ×2 (09:45→20:26)
[2020-02-12] MEDS: methylPREDNISolone SOD SUCC 125 MG/2 ML VIAL IV SCH (10:43)
--- NOTE | 2020-02-12 14:54 | General Surgery Progress Note ---
Subjective Patient reports: feels better, pain is less, flatus, bowel movement, diarrhea, afebrile Narrative: Note initiated : 02/12/20 at 2:51 pm Service Date, if different from initiated Date: [] Patient: Dayanna Guo 59 y/o F admitted on 02/01/20 for Abdominal Pain. Chief Complaint: [] Objective Temp Pulse Resp BP Pulse Ox 98.3 F 79 14 151/73 92 02/12/20 11:32 02/12/20 11:32 02/12/20 11:32 02/12/20 11:32 02/12/20 11:32 - Additional Data Intake & Output - Last 24 hours: Intake & Output 02/10/20 02/11/20 02/12/20 02/13/20 05:59 05:59 05:59 05:59 Intake Total 3640 3670 3951 2419.0909 Output Total 3765 3850 3975 2175 Balance -125 -180 -24 244.0909 Weight 215 lb 8 oz 210 lb 219 lb 219 lb - General physical appearance well developed, well nourished, no distress, chronically ill - Eyes PERRL, normal ocular movement - ENT normal pinna, normal nares, normal mucosa, no hearing loss, no congestion - Neck no masses, no bruits, trachea midline, no lymphadenopathy, no venous distension - Respiratory normal expansion, normal respiratory effort, clear to auscultation - Cardiovascular Cardiovascular exam: Present: normal rate and rhythm, RRR, +S1, +S2 (as you gradient all). Absent: tachycardia - Abdomen soft, non tender, bowel sounds (present), surgical scars (none), masses (none) - Integumentary no rash, no growths, no abnormal pigmentation - Neurologic normal coordination (he is used to having her wear), normal sensation - Musculoskeletal normal gait, normal posture - Psychiatric oriented to time, oriented to person, oriented to place, speech is normal, memory intact - Labs 02/12/20 05:00 02/12/20 05:00 Diabetes panel 02/12/20 Range/Units 05:00 Sodium 141 (133-145) mmol/L Potassium 3.1 L (3.3-5.1) mmol/L Chloride 95 L (96-108) mmol/L Carbon Dioxide 33 H (22-30) mmol/L BUN 5 L (6-20) mg/dl Creatinine 0.5 L (0.6-1.1) mg/dl Glucose 99 (70-105) mg/dL Calcium 5.7 L* (8.6-10.4) mg/dl AST 11 (0-37) U/l ALT 17 (0-40) U/l Alkaline Phosphatase 81 (39-117) U/L Total Protein 4.6 L (5.9-8.4) gm/dL Albumin 2.4 L (3.2-5.2) gm/dL Triglycerides 155 H (<150) mg/dl Calcium panel 02/12/20 Range/Units 05:00 Calcium 5.7 L* (8.6-10.4) mg/dl Phosphorus 3.4 (2.7-4.5) mg/dL Albumin 2.4 L (3.2-5.2) gm/dL Pituitary panel 02/12/20 Range/Units 05:00 Sodium 141 (133-145) mmol/L Potassium 3.1 L (3.3-5.1) mmol/L Chloride 95 L (96-108) mmol/L Carbon Dioxide 33 H (22-30) mmol/L BUN 5 L (6-20) mg/dl Creatinine 0.5 L (0.6-1.1) mg/dl Glucose 99 (70-105) mg/dL Calcium 5.7 L* (8.6-10.4) mg/dl Adrenal panel 02/12/20 Range/Units 05:00 Sodium 141 (133-145) mmol/L Potassium 3.1 L (3.3-5.1) mmol/L Chloride 95 L (96-108) mmol/L Carbon Dioxide 33 H (22-30) mmol/L BUN 5 L (6-20) mg/dl Creatinine 0.5 L (0.6-1.1) mg/dl Glucose 99 (70-105) mg/dL Calcium 5.7 L* (8.6-10.4) mg/dl Total Bilirubin 0.2 (0.0-1.0) mg/dL AST 11 (0-37) U/l ALT 17 (0-40) U/l Alkaline Phosphatase 81 (39-117) U/L Total Protein 4.6 L (5.9-8.4) gm/dL Albumin 2.4 L (3.2-5.2) gm/dL Assessment and Plan (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 K rider 1 Follow-up abdominal x-rays in the morning Current Visit: Yes (2) Diabetes mellitus type 2, uncontrolled Status: Chronic Assessment and plan: Adequately controlled Current Visit: No (3) Hypertension Status: Chronic Current Visit: No (4) Hypothyroidism Status: Chronic Current Visit: No (5) Myasthenia gravis Status: Chronic Current Visit: No (6) LA (obstructive sleep apnea) Status: Chronic Current Visit: No (7) Polyglandular autoimmune syndrome Status: Chronic Current Visit: No (8) Hypocalcemia Status: Resolved Current Visit: No (9) Small bowel obstruction, partial Status: Resolved Assessment and plan: schedule small bowel follow-through for today before patient starts on diet Current Visit: No - Time Spent With Patient Total time spent is greater than 50% in coordination of care (as documented) at patient's floor/unit and/or counseling patient:
[2020-02-12] MEDS ORDERED: DIATRIZOATE MEGLU/DIATRIZO SOD 30 ML BOTTLE PO ONE (16:07)
--- NOTE | 2020-02-12 16:11 | XRay Report ---
CLINICAL INFORMATION: Follow-up small bowel obstruction COMPARISON: Plain films 02/12/2020 TECHNIQUE: Water-soluble contrast was infused into the indwelling NG tube and serial films were obtained through one hour and 10 minutes FINDINGS: Total colectomy and partial small bowel resection appreciated. The stomach, duodenum, jejunum are mildly dilated with slight delay in transit time - approximately one hour. Contrast noted within the right ostomy bag No evidence of bowel obstruction IMPRESSION: Mild ileus - no evidence of bowel obstruction Interpreted and Authenticated by: All Lundberg 02/12/20
[2020-02-12] MEDS ORDERED: CYCLOBENZAPRINE 10 MG TABLET PO PRN (16:14)
[2020-02-12] MEDS: ERYTHROMYCIN BASE 250 MG TABLET PO SCH ×2 (17:40→20:26)
[2020-02-12] MEDS: CALCITRIOL 0.25 MCG CAPSULE PO SCH (20:26)
[2020-02-12] MEDS: DULoxetine 30 MG CAPSULE PO SCH (20:26)
[2020-02-12] MEDS: MAGNESIUM OXIDE 400 MG TABLET PO SCH (20:26)
[2020-02-13] MEDS: HYDROmorphone 1 MG/ML SYRINGE IV PRN ×7 (00:28→21:50)
[2020-02-13] MEDS: ACETAMINOPHEN 1,000 MG/100 ML BOTTLE IV SCH ×4 (01:30→20:17)
[2020-02-13] MEDS: 0.9 % SODIUM CHLORIDE 1,000 ML IV SCH ×5 (02:41→21:04)
[2020-02-13] MEDS: metroNIDAZOLE 500 MG/100 ML BAG IV SCH ×4 (05:30→23:27)
[2020-02-13] MEDS: PYRIDOSTIGMINE BROMIDE 10 MG/2 ML ML IM SCH ×2 (05:30→12:00)
[2020-02-13] MEDS: ONDANSETRON 4 MG/2 ML VIAL IV PRN (05:57)
[2020-02-13 06:19] LABS: Basophils # (Auto) 0 K/mcL (0.00-0.30); Basophils % (Auto) 0 % (0.0-2.0); Eosinophils # (Auto) 0.17 K/mcL (0.00-0.70); Eosinophils % (Auto) 2.9 % (0.0-7.0); Granulocytes % (Auto) 59.6 % (38.0-78.0); Hematocrit 30.2 % (34.1-44.9); Hemoglobin 9.7 g/dL (11.2-15.7); Lymphocytes # (Auto) 1.53 K/mcL (1.50-4.80); Lymphocytes % (Auto) 26.3 % (15.5-49.0); Mean Corpuscular HGB Conc 32.1 g/dL (31.0-36.0); Mean Platelet Volume 9.7 fL (7.4-10.4); Monocytes # (Auto) 0.65 K/mcL (0.10-0.90); Monocytes % (Auto) 11.2 % (1.0-12.0); Platelet Count 207 K/mcL (140-440); RBC 3.47 M/mcL (3.59-5.38); Red Cell Distribution Width 14.2 % (11.5-14.5); WBC 5.8 K/mcL (4.50-11.00)
[2020-02-13 06:30] LABS: ALT/SGPT 15 U/l (0-40); AST/SGOT 9 U/l (0-37); Albumin 2.4 gm/dL (3.2-5.2); Albumin/Globulin Ratio 1.1 (1.0-2.3); Alkaline Phosphatase 89 U/L (39-117); Bilirubin,Direct < 0.2 mg/dL (0.0-0.3); Bilirubin,Total 0.2 mg/dL (0.0-1.0); Blood Urea Nitrogen 4 mg/dl (6-20); Carbon Dioxide 30 mmol/L (22-30); Chloride 96 mmol/L (96-108); Globulin 2.2 gm/dL (2.2-3.7); Glomerular Filtration Rate 107; Glucose 138 mg/dL (70-105); Lactate Dehydrogenase 397 U/L (94-250); Phosphorous 3.8 mg/dL (2.7-4.5); Triglycerides 125 mg/dl (<150); Uric Acid 4.1 mg/dL (2.5-8.0)
[2020-02-13 06:36] LABS: Calcium 5.7 mg/dl (8.6-10.4)
[2020-02-13] MEDS: PROMETHAZINE 25 MG/ML VIAL IV PRN (08:11)
[2020-02-13] MEDS: INSULIN LISPRO 1 UNIT/0.01 ML UNIT SQ SCH ×4 (08:16→21:17)
--- NOTE | 2020-02-13 08:17 | XRay Report ---
CLINICAL INFORMATION: FOR F/U OF ILEUS COMPARISON: Follow follow-through 02/12/2020 FINDINGS: There are scattered air-fluid levels within minimally dilated small bowel compatible with ileus. Enteric contrast, administered on previous day's study has almost totally evacuated with minimal residual in the distal bowel. No free air, or soft tissue mass IMPRESSION: Mild ileus pattern. No evidence of bowel obstruction Interpreted and Authenticated by: All Lundberg 02/13/20
[2020-02-13] MEDS: CALCIUM GLUCONATE 9.3 MEQ in DEXTROSE 5% IN WATER 50 ML IV SCH (09:00)
[2020-02-13] MEDS: CEFEPIME 1 GM VIAL IV SCH ×2 (09:00→21:16)
[2020-02-13] MEDS ORDERED: CALCIUM GLUCONATE 4.65 MEQ/10 ML VIAL ONE (10:14)
[2020-02-13] MEDS: POLYETHYLENE GLYCOL 3350 17 GM PACKET PO SCH ×3 (10:26→21:15)
[2020-02-13] MEDS: LEVOTHYROXINE 100 MCG VIAL IV SCH (10:26)
[2020-02-13] MEDS: ERYTHROMYCIN BASE 250 MG TABLET PO SCH ×4 (10:28→21:18)
[2020-02-13] MEDS: CALCITRIOL 0.25 MCG CAPSULE PO SCH ×3 (10:28→21:18)
[2020-02-13] MEDS: methylPREDNISolone SOD SUCC 125 MG/2 ML VIAL IV SCH (10:28)
[2020-02-13] MEDS: MAGNESIUM OXIDE 400 MG TABLET PO SCH ×2 (10:29→21:18)
[2020-02-13] MEDS: DULoxetine 30 MG CAPSULE PO SCH ×2 (10:29→21:18)
--- NOTE | 2020-02-13 13:50 | General Surgery Progress Note ---
Subjective Patient reports: feels better, pain is less, tolerating liquids well, flatus, bowel movement, diarrhea, nausea, afebrile Narrative: Note initiated : 02/13/20 at 1:48 pm Service Date, if different from initiated Date: [] Patient: Dayanna Guo 59 y/o F admitted on 02/01/20 for Abdominal Pain. Chief Complaint: [patient complains of nausea and vomiting during the night, though she put out over 3000 cc through her stoma. She also asked for a regular diet. She looks clinically stable and her lab work is unremarkable except for mildly decreased potassium and magnesium.] Objective Temp Pulse Resp BP Pulse Ox 98.5 F 104 H 19 159/96 91 02/13/20 08:00 02/13/20 08:00 02/13/20 08:00 02/13/20 08:00 02/13/20 08:00 - Additional Data Intake & Output - Last 24 hours: Intake & Output 02/11/20 02/12/20 02/13/20 02/14/20 05:59 05:59 05:59 05:59 Intake Total 3670 3951 5909.0909 510 Output Total 3850 3975 7850 600 Balance -.9091 -90 Weight 210 lb 219 lb 208 lb 8 oz - General physical appearance well developed, well nourished, no distress - Eyes PERRL, normal ocular movement - ENT normal pinna, normal nares, normal mucosa, no hearing loss, no congestion - Neck no masses, no bruits, trachea midline, no lymphadenopathy, no venous distension - Respiratory normal expansion, normal respiratory effort, clear to auscultation - Cardiovascular Cardiovascular exam: Present: normal rate and rhythm, RRR, +S1, +S2. Absent: JVD, tachycardia - Abdomen non tender, bowel sounds (present), surgical scars (none), masses (none), distended (no distention noted) - Integumentary no rash, no growths, no abnormal pigmentation - Neurologic normal coordination, normal sensation - Musculoskeletal normal gait, normal posture - Psychiatric oriented to time, oriented to person, oriented to place, speech is normal, memory intact - Labs 02/13/20 05:00 02/13/20 05:00 Diabetes panel 02/13/20 Range/Units 05:00 Sodium 139 (133-145) mmol/L Potassium 3.1 L (3.3-5.1) mmol/L Chloride 96 (96-108) mmol/L Carbon Dioxide 30 (22-30) mmol/L BUN 4 L (6-20) mg/dl Creatinine 0.5 L (0.6-1.1) mg/dl Glucose 138 H (70-105) mg/dL Calcium 5.7 L* (8.6-10.4) mg/dl AST 9 (0-37) U/l ALT 15 (0-40) U/l Alkaline Phosphatase 89 (39-117) U/L Total Protein 4.6 L (5.9-8.4) gm/dL Albumin 2.4 L (3.2-5.2) gm/dL Triglycerides 125 (<150) mg/dl Calcium panel 02/13/20 Range/Units 05:00 Calcium 5.7 L* (8.6-10.4) mg/dl Phosphorus 3.8 (2.7-4.5) mg/dL Albumin 2.4 L (3.2-5.2) gm/dL Pituitary panel 02/13/20 Range/Units 05:00 Sodium 139 (133-145) mmol/L Potassium 3.1 L (3.3-5.1) mmol/L Chloride 96 (96-108) mmol/L Carbon Dioxide 30 (22-30) mmol/L BUN 4 L (6-20) mg/dl Creatinine 0.5 L (0.6-1.1) mg/dl Glucose 138 H (70-105) mg/dL Calcium 5.7 L* (8.6-10.4) mg/dl Adrenal panel 02/13/20 Range/Units 05:00 Sodium 139 (133-145) mmol/L Potassium 3.1 L (3.3-5.1) mmol/L Chloride 96 (96-108) mmol/L Carbon Dioxide 30 (22-30) mmol/L BUN 4 L (6-20) mg/dl Creatinine 0.5 L (0.6-1.1) mg/dl Glucose 138 H (70-105) mg/dL Calcium 5.7 L* (8.6-10.4) mg/dl Total Bilirubin 0.2 (0.0-1.0) mg/dL AST 9 (0-37) U/l ALT 15 (0-40) U/l Alkaline Phosphatase 89 (39-117) U/L Total Protein 4.6 L (5.9-8.4) gm/dL Albumin 2.4 L (3.2-5.2) gm/dL Assessment and Plan (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 K rider 1 Follow-up abdominal x-rays in the morning Current Visit: Yes (2) Diabetes mellitus type 2, uncontrolled Status: Chronic Assessment and plan: Adequately controlled Current Visit: No (3) Hypertension Status: Chronic Current Visit: No (4) Hypothyroidism Status: Chronic Current Visit: No (5) Myasthenia gravis Status: Chronic Current Visit: No (6) LA (obstructive sleep apnea) Status: Chronic Current Visit: No (7) Polyglandular autoimmune syndrome Status: Chronic Current Visit: No (8) Hypocalcemia Status: Resolved Current Visit: No (9) Small bowel obstruction, partial Status: Resolved Assessment and plan: schedule small bowel follow-through for today before patient starts on diet Current Visit: No - Time Spent With Patient Total time spent is greater than 50% in coordination of care (as documented) at patient's floor/unit and/or counseling patient:
[2020-02-13] MEDS: POTASSIUM CHLORIDE 40 MEQ in DEXTROSE 5% IN WATER 500 ML IV SCH ×2 (14:32→18:47)
[2020-02-13] MEDS: MAGNESIUM SULFATE 32.48 MEQ in DEXTROSE 5% IN WATER 50 ML IV SCH ×2 (14:33→15:21)
[2020-02-14] MEDS: HYDROmorphone 1 MG/ML SYRINGE IV PRN ×12 (00:09→22:49)
[2020-02-14] MEDS: ACETAMINOPHEN 1,000 MG/100 ML BOTTLE IV SCH ×4 (02:04→20:47)
[2020-02-14] MEDS: 0.9 % SODIUM CHLORIDE 1,000 ML IV SCH ×4 (04:27→21:35)
[2020-02-14] MEDS: metroNIDAZOLE 500 MG/100 ML BAG IV SCH ×4 (05:54→22:50)
[2020-02-14 06:43] LABS: Basophils # (Auto) 0.02 K/mcL (0.00-0.30); Basophils % (Auto) 0.3 % (0.0-2.0); Eosinophils # (Auto) 0.06 K/mcL (0.00-0.70); Eosinophils % (Auto) 0.9 % (0.0-7.0); Granulocytes % (Auto) 59.1 % (38.0-78.0); Hematocrit 33.2 % (34.1-44.9); Hemoglobin 10.3 g/dL (11.2-15.7); Lymphocytes # (Auto) 1.87 K/mcL (1.50-4.80); Lymphocytes % (Auto) 27.3 % (15.5-49.0); Mean Cell Volume 88.5 fL (80.0-100.0); Mean Platelet Volume 9.6 fL (7.4-10.4); Monocytes # (Auto) 0.85 K/mcL (0.10-0.90); Monocytes % (Auto) 12.4 % (1.0-12.0); RBC 3.75 M/mcL (3.59-5.38); Red Cell Distribution Width 14.6 % (11.5-14.5); WBC 6.9 K/mcL (4.50-11.00)
[2020-02-14] MEDS: LEVOTHYROXINE 100 MCG VIAL IV SCH (07:04)
[2020-02-14 07:06] LABS: ALT/SGPT 13 U/l (0-40); AST/SGOT 10 U/l (0-37); Albumin 2.4 gm/dL (3.2-5.2); Albumin/Globulin Ratio 1.1 (1.0-2.3); Alkaline Phosphatase 99 U/L (39-117); Bilirubin,Direct < 0.2 mg/dL (0.0-0.3); Bilirubin,Total 0.2 mg/dL (0.0-1.0); Carbon Dioxide 27 mmol/L (22-30); Chloride 102 mmol/L (96-108); Globulin 2.1 gm/dL (2.2-3.7); Glomerular Filtration Rate 100; Glucose 102 mg/dL (70-105); Lactate Dehydrogenase 399 U/L (94-250); Phosphorous 2.7 mg/dL (2.7-4.5); Triglycerides 88 mg/dl (<150); Uric Acid 2.9 mg/dL (2.5-8.0)
[2020-02-14] MEDS: INSULIN LISPRO 1 UNIT/0.01 ML UNIT SQ SCH ×4 (07:08→21:07)
[2020-02-14 07:17] LABS: Platelet Count 349 K/mcL (140-440)
[2020-02-14] MEDS: POLYETHYLENE GLYCOL 3350 17 GM PACKET PO SCH ×3 (07:18→20:49)
[2020-02-14] MEDS: ERYTHROMYCIN BASE 250 MG TABLET PO SCH ×4 (07:18→20:49)
[2020-02-14] MEDS: CALCITRIOL 0.25 MCG CAPSULE PO SCH ×3 (07:20→20:49)
[2020-02-14] MEDS: DULoxetine 30 MG CAPSULE PO SCH ×2 (07:20→20:49)
[2020-02-14] MEDS: CEFEPIME 1 GM VIAL IV SCH ×2 (07:20→21:36)
[2020-02-14] MEDS: methylPREDNISolone SOD SUCC 125 MG/2 ML VIAL IV SCH (07:20)
[2020-02-14] MEDS: MAGNESIUM OXIDE 400 MG TABLET PO SCH ×2 (07:20→20:49)
[2020-02-14 07:25] LABS: Blood Urea Nitrogen 6 mg/dl (6-20); Calcium 5.7 mg/dl (8.6-10.4)
[2020-02-14] MEDS: CALCIUM GLUCONATE 9.3 MEQ in DEXTROSE 5% IN WATER 50 ML IV SCH (09:25)
--- NOTE | 2020-02-14 14:06 | General Surgery Progress Note ---
Subjective Patient reports: feels better, pain is less, tolerating a regular diet, flatus, bowel movement, afebrile Narrative: Note initiated : 02/14/20 at 2:06 pm Service Date, if different from initiated Date: [] Patient: Dayanna Guo 59 y/o F admitted on 02/01/20 for Abdominal Pain. Chief Complaint: [Patient states that she had some nausea and dizziness yesterday. This was associated with the resident. All and bending in therapy so both of these were discontinued. She has had resolution of these symptoms. She had good output throughout the night. She no longer has nausea at this time. She is tolerating regular diet without difficulty. Her pain is better controlled. White blood count 6.9, hemoglobin 10.3, hematocrit 33.2, potassium 4.2 BUN 6, creatinine 0.6, phosphorus 2.7, magnesium 2.] Objective Temp Pulse Resp BP Pulse Ox 97.6 F 89 18 146/91 93 02/14/20 11:38 02/13/20 22:52 02/14/20 11:38 02/14/20 11:38 02/14/20 11:38 - Additional Data Intake & Output - Last 24 hours: Intake & Output 02/12/20 02/13/20 02/14/20 02/15/20 05:59 05:59 05:59 05:59 Intake Total 3951 5909.0909 5691 1070 Output Total 3975 7850 5950 850 Balance -24 -1940.9091 -259 220 Weight 219 lb 208 lb 8 oz 221 lb - General physical appearance well developed, well nourished, no distress, chronically ill - Eyes PERRL, normal ocular movement - ENT normal pinna, normal nares, normal mucosa, no hearing loss, no congestion - Neck no masses, no bruits, trachea midline, no lymphadenopathy, no venous distension - Respiratory normal expansion, normal respiratory effort, clear to auscultation - Cardiovascular Cardiovascular exam: Present: normal rate and rhythm, RRR, +S1, +S2. Absent: JVD, tachycardia - Abdomen non tender, bowel sounds (present), surgical scars (none), masses (none), distended (no distention noted) - Integumentary no rash, no growths, no abnormal pigmentation - Neurologic normal coordination, normal sensation - Musculoskeletal normal gait, normal posture - Psychiatric oriented to time, oriented to person, oriented to place, speech is normal, memory intact - Labs 02/14/20 05:20 02/14/20 05:20 Diabetes panel 02/14/20 Range/Units 05:20 Sodium 138 (133-145) mmol/L Potassium 4.2 (3.3-5.1) mmol/L Chloride 102 (96-108) mmol/L Carbon Dioxide 27 (22-30) mmol/L BUN 6 (6-20) mg/dl Creatinine 0.6 (0.6-1.1) mg/dl Glucose 102 (70-105) mg/dL Calcium 5.7 L* (8.6-10.4) mg/dl AST 10 (0-37) U/l ALT 13 (0-40) U/l Alkaline Phosphatase 99 (39-117) U/L Total Protein 4.5 L (5.9-8.4) gm/dL Albumin 2.4 L (3.2-5.2) gm/dL Triglycerides 88 (<150) mg/dl Calcium panel 02/14/20 Range/Units 05:20 Calcium 5.7 L* (8.6-10.4) mg/dl Phosphorus 2.7 (2.7-4.5) mg/dL Albumin 2.4 L (3.2-5.2) gm/dL Pituitary panel 02/14/20 Range/Units 05:20 Sodium 138 (133-145) mmol/L Potassium 4.2 (3.3-5.1) mmol/L Chloride 102 (96-108) mmol/L Carbon Dioxide 27 (22-30) mmol/L BUN 6 (6-20) mg/dl Creatinine 0.6 (0.6-1.1) mg/dl Glucose 102 (70-105) mg/dL Calcium 5.7 L* (8.6-10.4) mg/dl Adrenal panel 02/14/20 Range/Units 05:20 Sodium 138 (133-145) mmol/L Potassium 4.2 (3.3-5.1) mmol/L Chloride 102 (96-108) mmol/L Carbon Dioxide 27 (22-30) mmol/L BUN 6 (6-20) mg/dl Creatinine 0.6 (0.6-1.1) mg/dl Glucose 102 (70-105) mg/dL Calcium 5.7 L* (8.6-10.4) mg/dl Total Bilirubin 0.2 (0.0-1.0) mg/dL AST 10 (0-37) U/l ALT 13 (0-40) U/l Alkaline Phosphatase 99 (39-117) U/L Total Protein 4.5 L (5.9-8.4) gm/dL Albumin 2.4 L (3.2-5.2) gm/dL Assessment and Plan (1) Primary chronic pseudo-obstruction of small intestine Status: Acute Assessment and plan: REGONOL 5 mg IM every 6 hours Follow-up abdominal x-rays in the morning Current Visit: Yes (2) Diabetes mellitus type 2, uncontrolled Status: Chronic Assessment and plan: Adequately controlled Current Visit: No (3) Hypertension Status: Chronic Current Visit: No (4) Hypothyroidism Status: Chronic Current Visit: No (5) Myasthenia gravis Status: Chronic Current Visit: No (6) LA (obstructive sleep apnea) Status: Chronic Current Visit: No (7) Polyglandular autoimmune syndrome Status: Chronic Current Visit: No (8) Hypocalcemia Status: Resolved Current Visit: No (9) Small bowel obstruction, partial Status: Resolved Assessment and plan: schedule small bowel follow-through for today before patient starts on diet Current Visit: No - Time Spent With Patient Total time spent is greater than 50% in coordination of care (as documented) at patient's floor/unit and/or counseling patient:
[2020-02-14] MEDS: PYRIDOSTIGMINE BROMIDE 10 MG/2 ML ML IM SCH ×2 (17:51→23:54)
[2020-02-15] MEDS: HYDROmorphone 1 MG/ML SYRINGE IV PRN ×8 (01:09→17:20)
[2020-02-15] MEDS: ACETAMINOPHEN 1,000 MG/100 ML BOTTLE IV SCH ×3 (01:55→14:53)
[2020-02-15] MEDS: 0.9 % SODIUM CHLORIDE 1,000 ML IV SCH ×2 (04:30→14:54)
[2020-02-15] MEDS: metroNIDAZOLE 500 MG/100 ML BAG IV SCH ×3 (05:20→17:21)
[2020-02-15] MEDS: PYRIDOSTIGMINE BROMIDE 10 MG/2 ML ML IM SCH ×3 (05:21→17:39)
[2020-02-15 06:03] LABS: Basophils # (Auto) 0.02 K/mcL (0.00-0.30); Basophils % (Auto) 0.3 % (0.0-2.0); Eosinophils # (Auto) 0 K/mcL (0.00-0.70); Eosinophils % (Auto) 0 % (0.0-7.0); Granulocytes % (Auto) 75.6 % (38.0-78.0); Hematocrit 31.5 % (34.1-44.9); Hemoglobin 9.7 g/dL (11.2-15.7); Lymphocytes # (Auto) 1.17 K/mcL (1.50-4.80); Lymphocytes % (Auto) 15.8 % (15.5-49.0); Mean Cell Volume 88.5 fL (80.0-100.0); Mean Corpuscular HGB Conc 30.8 g/dL (31.0-36.0); Mean Platelet Volume 9.4 fL (7.4-10.4); Monocytes # (Auto) 0.61 K/mcL (0.10-0.90); Monocytes % (Auto) 8.3 % (1.0-12.0); Platelet Count 317 K/mcL (140-440); RBC 3.56 M/mcL (3.59-5.38); Red Cell Distribution Width 14.6 % (11.5-14.5); WBC 7.4 K/mcL (4.50-11.00)
[2020-02-15 06:26] LABS: Blood Urea Nitrogen 12 mg/dl (6-20); Carbon Dioxide 27 mmol/L (22-30); Chloride 98 mmol/L (96-108); Glucose 188 mg/dL (70-105)
[2020-02-15 06:27] LABS: ALT/SGPT 11 U/l (0-40); AST/SGOT 9 U/l (0-37); Albumin 2.6 gm/dL (3.2-5.2); Albumin/Globulin Ratio 1.2 (1.0-2.3); Alkaline Phosphatase 93 U/L (39-117); Bilirubin,Direct < 0.2 mg/dL (0.0-0.3); Bilirubin,Total 0.2 mg/dL (0.0-1.0); Calcium 6.8 mg/dl (8.6-10.4); Globulin 2.1 gm/dL (2.2-3.7); Glomerular Filtration Rate 96; Lactate Dehydrogenase 399 U/L (94-250); Phosphorous 3.3 mg/dL (2.7-4.5); Triglycerides 136 mg/dl (<150)
[2020-02-15 06:29] LABS: Uric Acid 2.1 mg/dL (2.5-8.0)
--- NOTE | 2020-02-15 07:59 | XRay Report ---
HISTORY: Follow-up ileus FINDINGS: There are a few loops of mildly dilated small bowel in the mid and upper abdomen which contain air-fluid levels. There is also some air in nondilated colon and nondistended stomach. The residual contrast seen within the stomach on 02/13/20 has cleared. Fewer air-fluid levels are present in the bowel today than there were on the prior exam. Caliber of the small bowel is slightly smaller today. IMPRESSION: Persistent ileus with slight improvement Interpreted and Authenticated by: Zay Juarez 02/15/20
[2020-02-15] MEDS: INSULIN LISPRO 1 UNIT/0.01 ML UNIT SQ SCH ×3 (08:27→17:20)
[2020-02-15] MEDS: MAGNESIUM OXIDE 400 MG TABLET PO SCH (10:01)
[2020-02-15] MEDS: LEVOTHYROXINE 100 MCG VIAL IV SCH (10:01)
[2020-02-15] MEDS: CALCITRIOL 0.25 MCG CAPSULE PO SCH ×2 (10:01→14:54)
[2020-02-15] MEDS: DULoxetine 30 MG CAPSULE PO SCH (10:01)
[2020-02-15] MEDS: POLYETHYLENE GLYCOL 3350 17 GM PACKET PO SCH ×2 (10:02→14:53)
[2020-02-15] MEDS: CEFEPIME 1 GM VIAL IV SCH (10:02)
[2020-02-15] MEDS: methylPREDNISolone SOD SUCC 125 MG/2 ML VIAL IV SCH (10:03)
[2020-02-15] MEDS: CALCIUM GLUCONATE 9.3 MEQ in DEXTROSE 5% IN WATER 50 ML IV SCH (10:04)
[2020-02-15] MEDS: ERYTHROMYCIN BASE 250 MG TABLET PO SCH ×3 (11:20→17:19)
[2020-02-15] MEDS ORDERED: MAGNESIUM SULFATE 4 GM/100 ML BAG IV ONE (12:30)
--- NOTE | 2020-02-15 16:12 | Discharge Summary ---
Providers - Providers Patient information: Note initiated : 02/15/20 at 4:07 pm Service Date, if different from initiated Date: [] Patient: Dayanna Guo 59 y/o F admitted on 02/01/20 for Abdominal Pain. Chief Complaint: [] Date of admission: 02/01/20 Discharge date: 02/15/20 Attending physician: Bertha Currie Hospitalization Hospital Course: 59-year-old female with history of recurrent intestinal pseudoobstruction and probable intestinal obstruction due to adhesions. Patient presented on 31 January with abdominal pain, nausea, vomiting. She had abdominal distention. Nasogastric tube was placed and she put out over 2000 cc initially and then another 2000 cc over the next 24 hours. She was admitted with plans to perform a small bowel follow-through. This was performed on January, but it took 15 hours for contrast to go through her small bowel. January contrast was pushed through her stoma and it showed normal caliber distal ileum but no other contrast could be placed suggesting distal ileal obstruction. On January exploratory laparotomy with extensive adhesiolysis was done. There was near complete obstruction at the area of prior small bowel resection with primary anastomosis. There was also another area with partial obstruction in the terminal ileum a few centimeters proximal to the stoma. Patient was continued on liquids and on february small bowel follow-through was done and that showed transit through the bowel into the stoma at 1-1/2 hours. From that point. Her diet has been advanced, and she has done well. She has copious output on a daily basis and she is now tolerating a regular diet. Today's x-ray shows a small amount of gas in her mid gut, but otherwise her distal bowel was decompressed. Electrolytes are stable. Patient is stable for discharge home. She will be followed up in the office in 1 week. Discharge diagnosis: small bowel obstruction due to intestinal adhesions Secondary discharge diagnosis: Chronic intestinal pseudoobstruction. History of myasthenia gravis. Diabetes mellitus Hypocalcemia. Chronic obstructive sleep apnea Reason for admission: abdominal pain, nausea, vomiting Procedures: None Pertinent studies/significant findings: CT of abdomen and pelvis with contrast 2. Small bowel follow-through 2. Retrograde contrast study through ileostomy Complications: None Exam Temp Pulse Resp BP Pulse Ox 98.2 F 101 H 18 161/81 94 02/15/20 14:53 02/15/20 12:00 02/15/20 12:00 02/15/20 12:00 02/15/20 12:00 - General physical appearance well developed, well nourished, no distress - Eyes PERRL, normal ocular movement - ENT normal pinna, normal nares, normal mucosa, no hearing loss, no congestion - Head Head exam IM: Present: atraumatic, normocephalic - Neck no masses, no bruits, trachea midline, no lymphadenopathy, no venous distension - Cardiovascular Cardiovascular exam IM: Present: normal rate and rhythm - Respiratory normal expansion, normal respiratory effort, clear to percussion, clear to auscultation - Abdomen Abdomen: Present: soft, non tender, bowel sounds, surgical scars (surgical incision is healing unremarkably). Absent: distended Hernia: Present: none - Genitourinary Present: normal external genitalia - Integumentary Present: no rash, no growths, no abnormal pigmentation - Neurologic Present: normal coordination, normal sensation - Musculoskeletal Present: normal gait, normal posture - Psychiatric Present: oriented to time, oriented to person, oriented to place, speech is normal, memory intact Discharge Plan - Patient/Caregiver Discharge Instructions Activity: increase activity as tolerated Diet: Regular Diet, Low Fiber Additional Instructions: MiraLAX in 8 ounces liquid 3 times daily Prescriptions: Gabapentin [Neurontin] 300 mg PO QID #120 cap Transmission Status: Pending to [facility] traMADol [Ultram] 50 mg PO Q6HP PRN #60 tablet PRN Reason: Pain Transmission Status[facility] Follow up Plan Follow up with: Bertha Currie MD [Physician] - 02/22/20 10:30 am Douglas Haque MD [Primary Care Provider] - 02/22/20 2:00 pm Disposition: Home, Self-Care Care Plan Goals: This discharge packet is provided to you to help keep you informed about your care. We want to ensure you get everything you need when you go home. You will also be receiving a call from us in a few days to follow up with you and see how you are doing since your discharge. This gives us a chance to listen to any concerns you maybe experiencing since you were discharged or any additional needs you may have, as well as providing us feedback on your care experience. We strive to always provide excellent care and thank you for your feedback and for choosing [facility]. Prognosis: Good Rehab Potential: Good I certify that the patient requires SNF services.: No Overall status at discharge: patient is progressing back to baseline Pending Studies Resuscitation Status Full Code Diet Regular Diet Start Sat Feb 12 1347 Calcitriol (Rocaltrol) 0.5 mcg PO TID [facility] Last Admin: 02/15/20 14:54 Dose: 0.5 mcg Documented by: Admin: 02/15/20 10:01 Dose: 0.5 mcg Documented by: Admin: 02/14/20 20:49 Dose: 0.5 mcg Documented by: Admin: 02/14/20 13:25 Dose: 0.5 mcg Documented by: LUIS ARMANDO Admin: 02/14/20 07:20 Dose: 0.5 mcg Documented by: LUIS ARMANDO Admin: 02/13/20 21:18 Dose: 0.5 mcg Documented by: Admin: 02/13/20 14:55 Dose: 0.5 mcg Documented by: LUIS ARMANDO Admin: 02/13/20 10:28 Dose: 0.5 mcg Documented by: LUIS ARMANDO Admin: 02/12/20 20:26 Dose: 0.5 mcg Documented by: DIONICIO Cefepime HCl (Maxipime) 1 gm IV Q12H [facility]; Protocol Last Admin: 02/15/20 10:02 Dose: 1 gm Documented by: Admin: 02/14/20 21:36 Dose: 1 gm Documented by: Admin: 02/14/20 07:20 Dose: 1 gm Documented by: LUIS ARMANDO Admin: 02/13/20 21:16 Dose: 1 gm Documented by: Admin: 02/13/20 09:00 Dose: 1 gm Documented by: LUIS ARMANDO Admin: 02/12/20 20:26 Dose: 1 gm Documented by: Admin: 02/12/20 09:45 Dose: 1 gm Documented by: Admin: 02/11/20 21:07 Dose: 1 gm Documented by: Admin: 02/11/20 12:03 Dose: 1 gm Documented by: Admin: 02/10/20 21:45 Dose: 1 gm Documented by: Admin: 02/10/20 09:36 Dose: 1 gm Documented by: Admin: 02/09/20 21:20 Dose: 1 gm Documented by: Admin: 02/09/20 09:05 Dose: 1 gm Documented by: Admin: 02/08/20 21:09 Dose: 1 gm Documented by: Admin: 02/08/20 09:41 Dose: 1 gm Documented by: Admin: 02/07/20 21:53 Dose: 1 gm Documented by: [email or web address] Diagnostic Test (Pha) (Accu-Chek) 1 each FS ACHS [facility] Last Admin: 02/15/20 12:58 Dose: 1 each Documented by: Admin: 02/15/20 08:26 Dose: 1 each Documented by: Admin: 02/14/20 21:07 Dose: 1 each Documented by: [email or web address] Admin: 02/14/20 17:50 Dose: 1 each Documented by: [email or web address] Admin: 02/14/20 11:16 Dose: 1 each Documented by: [email or web address] Admin: 02/14/20 07:05 Dose: 1 each Documented by: [email or web address] Admin: 02/13/20 21:17 Dose: 1 each Documented by: [email or web address] Admin: 02/13/20 16:19 Dose: 1 each Documented by: [email or web address] Admin: 02/13/20 11:30 Dose: 1 each Documented by: [email or web address] Admin: 02/13/20 08:16 Dose: 1 each Documented by: [email or web address] Admin: 02/12/20 20:39 Dose: 1 each Documented by: Admin: 02/12/20 17:40 Dose: Not Given Documented by: [email or web address] Admin: 02/12/20 11:58 Dose: 1 each Documented by: Admin: 02/12/20 08:56 Dose: 1 each Documented by: Admin: 02/11/20 21:06 Dose: 1 each Documented by: Admin: 02/11/20 18:00 Dose: 1 each Documented by: Admin: 02/11/20 12:12 Dose: 1 each Documented by: Admin: 02/11/20 08:39 Dose: 1 each Documented by: Admin: 02/10/20 21:30 Dose: 1 each Documented by: Admin: 02/10/20 17:22 Dose: 1 each Documented by: Admin: 02/10/20 09:51 Dose: 1 each Documented by: Admin: 02/10/20 07:50 Dose: 1 each Documented by: Admin: 02/09/20 20:37 Dose: 1 each Documented by: Admin: 02/09/20 16:52 Dose: 1 each Documented by: Admin: 02/09/20 11:16 Dose: 1 each Documented by: Admin: 02/09/20 07:58 Dose: 1 each Documented by: Admin: 02/08/20 20:55 Dose: 1 each Documented by: Admin: 02/08/20 17:55 Dose: 1 each Documented by: Admin: 02/08/20 11:51 Dose: 1 each Documented by: Admin: 02/08/20 06:58 Dose: 1 each Documented by: Admin: 02/07/20 22:07 Dose: 1 each Documented by: Admin: 02/07/20 17:48 Dose: 1 each Documented by: [id number] Duloxetine HCl (Cymbalta) 30 mg PO BID [facility] Last Admin: 02/15/20 10:01 Dose: 30 mg Documented by: Admin: 02/14/20 20:49 Dose: 30 mg Documented by: Admin: 02/14/20 07:20 Dose: 30 mg Documented by: [email or web address] Admin: 02/13/20 21:18 Dose: 30 mg Documented by: [email or web address] Admin: 02/13/20 10:29 Dose: 30 mg Documented by: [email or web address] Admin: 02/12/20 20:26 Dose: 30 mg Documented by: DIONICIO Erythromycin (Erythromycin) 250 mg PO QID [facility]; Protocol Last Admin: 02/15/20 14:54 Dose: 250 mg Documented by: Admin: 02/15/20 11:20 Dose: 250 mg Documented by: Admin: 02/14/20 20:49 Dose: 250 mg Documented by: Admin: 02/14/20 17:51 Dose: 250 mg Documented by: [email or web address] Admin: 02/14/20 12:21 Dose: 250 mg Documented by: [email or web address] Admin: 02/14/20 07:18 Dose: 250 mg Documented by: [email or web address] Admin: 02/13/20 21:18 Dose: 250 mg Documented by: [email or web address] Admin: 02/13/20 17:41 Dose: 250 mg Documented by: [email or web address] Admin: 02/13/20 13:00 Dose: 250 mg Documented by: [email or web address] Admin: 02/13/20 10:28 Dose: 250 mg Documented by: LUIS ARMANDO Admin: 02/12/20 20:26 Dose: 250 mg Documented by: Admin: 02/12/20 17:40 Dose: 250 mg Documented by: DIANE Hydromorphone HCl (Dilaudid) 1 mg IV Q2HP PRN; Protocol PRN Reason: Per Pain Protocol Last Admin: 02/15/20 15:08 Dose: 1 mg Documented by: Admin: 02/15/20 10:05 Dose: 1 mg Documented by: Admin: 02/15/20 09:59 Dose: 1 mg Documented by: Admin: 02/15/20 07:28 Dose: 1 mg Documented by: Admin: 02/15/20 05:20 Dose: 1 mg Documented by: Admin: 02/15/20 03:07 Dose: 1 mg Documented by: Admin: 02/15/20 01:09 Dose: 1 mg Documented by: Admin: 02/14/20 22:49 Dose: 1 mg Documented by: Admin: 02/14/20 20:50 Dose: 1 mg Documented by: Admin: 02/14/20 17:45 Dose: 1 mg Documented by: Admin: 02/14/20 15:31 Dose: 1 mg Documented by: LUIS ARMANDO Admin: 02/14/20 13:24 Dose: 1 mg Documented by: [id number] Admin: 02/14/20 11:19 Dose: 1 mg Documented by: [email or web address] Admin: 02/14/20 09:18 Dose: 1 mg Documented by: [email or web address] Admin: 02/14/20 07:05 Dose: 1 mg Documented by: [email or web address] Admin: 02/14/20 04:31 Dose: 1 mg Documented by: [email or web address] Admin: 02/14/20 02:05 Dose: 1 mg Documented by: [email or web address] Admin: 02/14/20 00:09 Dose: 1 mg Documented by: [email or web address] Admin: 02/13/20 21:50 Dose: 1 mg Documented by: [email or web address] Admin: 02/13/20 19:44 Dose: 1 mg Documented by: [email or web address] Admin: 02/13/20 17:42 Dose: 1 mg Documented by: [id number] Admin: 02/13/20 08:16 Dose: 1 mg Documented by: [id number] Admin: 02/13/20 04:55 Dose: 1 mg Documented by: Admin: 02/13/20 02:41 Dose: 1 mg Documented by: Admin: 02/13/20 00:28 Dose: 1 mg Documented by: Admin: 02/12/20 22:08 Dose: 1 mg Documented by: Admin: 02/12/20 19:57 Dose: 1 mg Documented by: Admin: 02/12/20 17:40 Dose: 1 mg Documented by: [email or web address] Admin: 02/12/20 14:52 Dose: 1 mg Documented by: [email or web address] Admin: 02/12/20 12:45 Dose: 1 mg Documented by: Admin: 02/12/20 10:42 Dose: 1 mg Documented by: [email or web address] Admin: 02/12/20 08:20 Dose: 1 mg Documented by: [email or web address] Admin: 02/12/20 05:05 Dose: 1 mg Documented by: Admin: 02/12/20 02:58 Dose: 1 mg Documented by: Admin: 02/12/20 00:25 Dose: 1 mg Documented by: Admin: 02/11/20 22:17 Dose: 1 mg Documented by: Admin: 02/11/20 20:11 Dose: 1 mg Documented by: Admin: 02/11/20 18:01 Dose: 1 mg Documented by: Admin: 02/11/20 15:55 Dose: 1 mg Documented by: Admin: 02/11/20 11:08 Dose: 1 mg Documented by: Admin: 02/11/20 08:12 Dose: 1 mg Documented by: Admin: 02/11/20 05:20 Dose: 1 mg Documented by: Admin: 02/11/20 02:16 Dose: 1 mg Documented by: Admin: 02/10/20 23:47 Dose: 1 mg Documented by: Admin: 02/10/20 21:27 Dose: 1 mg Documented by: Admin: 02/10/20 18:57 Dose: 1 mg Documented by: Admin: 02/10/20 16:48 Dose: 1 mg Documented by: Admin: 02/10/20 14:23 Dose: 1 mg Documented by: Admin: 02/10/20 12:41 Dose: 1 mg Documented by: Admin: 02/10/20 07:15 Dose: 1 mg Documented by: ANGELY Calcium Gluconate 9.3 meq/ (Dextrose) 70 mls @ 70 mls/hr IV DAILY [facility] Last Admin: 02/15/20 10:04 Dose: 70 mls/hr Documented by: Infusion: 02/14/20 10:20 Dose: 0 mls/hr Documented by: [id number] Admin: 02/14/20 09:25 Dose: 70 mls/hr Documented by: [id number] Infusion: 02/13/20 10:00 Dose: 0 mls/hr Documented by: [id number] Admin: 02/13/20 09:00 Dose: 70 mls/hr Documented by: [id number] Infusion: 02/12/20 14:00 Dose: 0 mls/hr Documented by: Admin: 02/12/20 09:31 Dose: 140 mls/hr Documented by: Infusion: 02/11/20 12:12 Dose: 0 mls/hr Documented by: Admin: 02/11/20 11:09 Dose: 100 mls/hr Documented by: Infusion: 02/10/20 13:40 Dose: 0 mls/hr Documented by: Admin: 02/10/20 12:40 Dose: 70 mls/hr Documented by: Infusion: 02/09/20 11:47 Dose: 70 mls/hr Documented by: Admin: 02/09/20 09:06 Dose: 70 mls/hr Documented by: Infusion: 02/08/20 13:15 Dose: 70 mls/hr Documented by: Admin: 02/08/20 08:27 Dose: 70 mls/hr Documented by: [email or web address] Metronidazole (Flagyl) 500 mg in 100 mls @ 100 mls/hr IV Q6H [facility]; Protocol Last Admin: 02/15/20 13:15 Dose: 100 mls/hr Documented by: Infusion: 02/15/20 06:20 Dose: 0 mls/hr Documented by: Admin: 02/15/20 05:20 Dose: 100 mls/hr Documented by: Infusion: 02/15/20 02:44 Dose: 0 mls/hr Documented by: Admin: 02/14/20 22:50 Dose: 100 mls/hr Documented by: Infusion: 02/14/20 18:45 Dose: 100 mls/hr Documented by: Admin: 02/14/20 17:45 Dose: 100 mls/hr Documented by: [email or web address] Infusion: 02/14/20 12:22 Dose: 0 mls/hr Documented by: [id number] Admin: 02/14/20 11:15 Dose: 100 mls/hr Documented by: [email or web address] Infusion: 02/14/20 07:06 Dose: 0 mls/hr Documented by: Admin: 02/14/20 05:54 Dose: 100 mls/hr Documented by: [email or web address] Infusion: 02/14/20 00:30 Dose: 0 mls/hr Documented by: [email or web address] Admin: 02/13/20 23:27 Dose: 100 mls/hr Documented by: [email or web address] Infusion: 02/13/20 18:45 Dose: 0 mls/hr Documented by: [email or web address] Admin: 02/13/20 17:42 Dose: 100 mls/hr Documented by: [id number] Infusion: 02/13/20 13:00 Dose: 0 mls/hr Documented by: [email or web address] Admin: 02/13/20 12:00 Dose: 100 mls/hr Documented by: [id number] Infusion: 02/13/20 06:41 Dose: 0 mls/hr Documented by: [email or web address] Admin: 02/13/20 05:30 Dose: 100 mls/hr Documented by: Infusion: 02/13/20 01:19 Dose: 0 mls/hr Documented by: Admin: 02/12/20 23:35 Dose: 100 mls/hr Documented by: Infusion: 02/12/20 20:00 Dose: 0 mls/hr Documented by: Admin: 02/12/20 17:40 Dose: 100 mls/hr Documented by: Infusion: 02/12/20 14:00 Dose: 0 mls/hr Documented by: Admin: 02/12/20 12:34 Dose: 100 mls/hr Documented by: Infusion: 02/12/20 08:56 Dose: 0 mls/hr Documented by: Admin: 02/12/20 05:24 Dose: 100 mls/hr Documented by: [email or web address] Infusion: 02/12/20 00:45 Dose: 100 mls/hr Documented by: Admin: 02/11/20 23:45 Dose: 100 mls/hr Documented by: Infusion: 02/11/20 19:00 Dose: 100 mls/hr Documented by: [email or web address] Admin: 02/11/20 18:00 Dose: 100 mls/hr Documented by: Infusion: 02/11/20 13:00 Dose: 0 mls/hr Documented by: Admin: 02/11/20 12:01 Dose: 100 mls/hr Documented by: Infusion: 02/11/20 06:22 Dose: 0 mls/hr Documented by: Admin: 02/11/20 05:22 Dose: 100 mls/hr Documented by: Infusion: 02/11/20 00:49 Dose: 100 mls/hr Documented by: Admin: 02/10/20 23:49 Dose: 100 mls/hr Documented by: Infusion: 02/10/20 19:33 Dose: 100 mls/hr Documented by: Admin: 02/10/20 18:33 Dose: 100 mls/hr Documented by: Infusion: 02/10/20 14:30 Dose: 0 mls/hr Documented by: Admin: 02/10/20 13:31 Dose: 100 mls/hr Documented by: Infusion: 02/10/20 06:25 Dose: 0 mls/hr Documented by: Admin: 02/10/20 05:25 Dose: 100 mls/hr Documented by: Infusion: 02/10/20 01:10 Dose: 100 mls/hr Documented by: Admin: 02/10/20 00:10 Dose: 100 mls/hr Documented by: Infusion: 02/09/20 19:24 Dose: 100 mls/hr Documented by: Admin: 02/09/20 18:24 Dose: 100 mls/hr Documented by: Infusion: 02/09/20 14:41 Dose: 100 mls/hr Documented by: Admin: 02/09/20 12:10 Dose: 100 mls/hr Documented by: Infusion: 02/09/20 06:51 Dose: 100 mls/hr Documented by: Admin: 02/09/20 05:42 Dose: 100 mls/hr Documented by: Infusion: 02/09/20 01:20 Dose: 100 mls/hr Documented by: Admin: 02/09/20 00:20 Dose: 100 mls/hr Documented by: Infusion: 02/08/20 20:44 Dose: 100 mls/hr Documented by: Admin: 02/08/20 19:44 Dose: 100 mls/hr Documented by: Infusion: 02/08/20 13:22 Dose: 100 mls/hr Documented by: Admin: 02/08/20 12:19 Dose: 100 mls/hr Documented by: Infusion: 02/08/20 10:59 Dose: 100 mls/hr Documented by: Admin: 02/08/20 05:35 Dose: 100 mls/hr Documented by: Infusion: 02/08/20 01:42 Dose: 100 mls/hr Documented by: Admin: 02/08/20 00:42 Dose: 100 mls/hr Documented by: Infusion: 02/07/20 19:17 Dose: 100 mls/hr Documented by: Admin: 02/07/20 18:17 Dose: 100 mls/hr Documented by: [email or web address] Sodium Chloride (Sodium Chloride 0.9%) 1,000 mls @ 125 mls/hr IV .Q8H [facility] Admin: 02/15/20 14:54 Dose: Not Given Documented by: Admin: 02/15/20 04:30 Dose: 125 mls/hr Documented by: [email or web address] Infusion: 02/15/20 01:44 Dose: 125 mls/hr Documented by: Admin: 02/14/20 21:35 Dose: Not Given Documented by: Admin: 02/14/20 17:44 Dose: 125 mls/hr Documented by: [email or web address] Infusion: 02/14/20 17:44 Dose: 0 mls/hr Documented by: [email or web address] Admin: 02/14/20 12:21 Dose: Not Given Documented by: [id number] Admin: 02/14/20 04:27 Dose: 125 mls/hr Documented by: [email or web address] Infusion: 02/14/20 04:27 Dose: 0 mls/hr Documented by: [email or web address] Admin: 02/13/20 21:04 Dose: Not Given Documented by: [email or web address] Admin: 02/13/20 18:18 Dose: 125 mls/hr Documented by: [email or web address] Infusion: 02/13/20 18:02 Dose: 0 mls/hr Documented by: [id number] Admin: 02/13/20 14:31 Dose: Not Given Documented by: [email or web address] Admin: 02/13/20 02:57 Dose: Not Given Documented by: Admin: 02/13/20 02:41 Dose: 125 mls/hr Documented by: Infusion: 02/12/20 22:52 Dose: 125 mls/hr Documented by: Admin: 02/12/20 14:52 Dose: 125 mls/hr Documented by: Infusion: 02/12/20 14:51 Dose: 0 mls/hr Documented by: [email or web address] Admin: 02/12/20 03:39 Dose: 125 mls/hr Documented by: Infusion: 02/12/20 02:45 Dose: 125 mls/hr Documented by: Admin: 02/11/20 22:43 Dose: Not Given Documented by: Admin: 02/11/20 18:45 Dose: 125 mls/hr Documented by: Infusion: 02/11/20 18:45 Dose: 125 mls/hr Documented by: Admin: 02/11/20 12:59 Dose: 125 mls/hr Documented by: Infusion: 02/11/20 09:33 Dose: 125 mls/hr Documented by: Admin: 02/11/20 01:33 Dose: 125 mls/hr Documented by: Infusion: 02/11/20 01:32 Dose: 125 mls/hr Documented by: Admin: 02/10/20 21:32 Dose: Not Given Documented by: Admin: 02/10/20 17:22 Dose: 125 mls/hr Documented by: Admin: 02/10/20 13:31 Dose: Not Given Documented by: Infusion: 02/10/20 12:27 Dose: 125 mls/hr Documented by: Admin: 02/10/20 05:04 Dose: Not Given Documented by: Admin: 02/10/20 04:27 Dose: 125 mls/hr Documented by: Infusion: 02/10/20 01:15 Dose: 125 mls/hr Documented by: Admin: 02/09/20 17:15 Dose: 125 mls/hr Documented by: Infusion: 02/09/20 14:40 Dose: 125 mls/hr Documented by: Admin: 02/09/20 04:18 Dose: 125 mls/hr Documented by: Infusion: 02/09/20 04:18 Dose: 125 mls/hr Documented by: Admin: 02/08/20 20:50 Dose: 125 mls/hr Documented by: Admin: 02/08/20 13:22 Dose: Not Given Documented by: Infusion: 02/08/20 12:08 Dose: 125 mls/hr Documented by: Admin: 02/08/20 04:53 Dose: Not Given Documented by: Admin: 02/08/20 04:06 Dose: 125 mls/hr Documented by: Infusion: 02/07/20 21:46 Dose: 125 mls/hr Documented by: Admin: 02/07/20 13:46 Dose: 125 mls/hr Documented by: [id number] Acetaminophen (Ofirmev) 1,000 mg in 100 mls @ 200 mls/hr IV Q6H [facility]; Protocol Last Infusion: 02/15/20 15:23 Dose: 0 mls/hr Documented by: Admin: 02/15/20 14:53 Dose: 200 mls/hr Documented by: Infusion: 02/15/20 10:29 Dose: 200 mls/hr Documented by: Admin: 02/15/20 09:59 Dose: 200 mls/hr Documented by: Infusion: 02/15/20 02:44 Dose: 0 mls/hr Documented by: Admin: 02/15/20 01:55 Dose: 200 mls/hr Documented by: Infusion: 02/14/20 21:40 Dose: 0 mls/hr Documented by: Admin: 02/14/20 20:47 Dose: 200 mls/hr Documented by: Infusion: 02/14/20 14:34 Dose: 0 mls/hr Documented by: [email or web address] Admin: 02/14/20 13:25 Dose: 200 mls/hr Documented by: [id number] Infusion: 02/14/20 07:50 Dose: 0 mls/hr Documented by: [email or web address] Admin: 02/14/20 07:19 Dose: 200 mls/hr Documented by: [email or web address] Infusion: 02/14/20 02:34 Dose: 0 mls/hr Documented by: [email or web address] Admin: 02/14/20 02:04 Dose: 200 mls/hr Documented by: [email or web address] Infusion: 02/13/20 20:47 Dose: 0 mls/hr Documented by: [email or web address] Admin: 02/13/20 20:17 Dose: 200 mls/hr Documented by: [email or web address] Infusion: 02/13/20 15:03 Dose: 0 mls/hr Documented by: [id number] Admin: 02/13/20 14:00 Dose: 200 mls/hr Documented by: [email or web address] Infusion: 02/13/20 09:30 Dose: 0 mls/hr Documented by: [email or web address] Admin: 02/13/20 09:00 Dose: 200 mls/hr Documented by: [email or web address] Infusion: 02/13/20 02:39 Dose: 0 mls/hr Documented by: Admin: 02/13/20 01:30 Dose: 200 mls/hr Documented by: Infusion: 02/12/20 19:57 Dose: 0 mls/hr Documented by: Admin: 02/12/20 19:22 Dose: 200 mls/hr Documented by: Infusion: 02/12/20 17:31 Dose: 0 mls/hr Documented by: Admin: 02/12/20 14:53 Dose: 200 mls/hr Documented by: Infusion: 02/12/20 09:46 Dose: 200 mls/hr Documented by: Admin: 02/12/20 08:55 Dose: 200 mls/hr Documented by: Infusion: 02/12/20 05:20 Dose: 200 mls/hr Documented by: Admin: 02/12/20 04:50 Dose: 200 mls/hr Documented by: Infusion: 02/11/20 23:45 Dose: 200 mls/hr Documented by: Admin: 02/11/20 23:15 Dose: 200 mls/hr Documented by: Infusion: 02/11/20 18:29 Dose: 200 mls/hr Documented by: Admin: 02/11/20 17:59 Dose: 200 mls/hr Documented by: Infusion: 02/11/20 11:38 Dose: 0 mls/hr Documented by: Admin: 02/11/20 11:08 Dose: 200 mls/hr Documented by: Infusion: 02/11/20 02:40 Dose: 200 mls/hr Documented by: Admin: 02/11/20 02:10 Dose: 200 mls/hr Documented by: Infusion: 02/10/20 20:45 Dose: 200 mls/hr Documented by: Admin: 02/10/20 20:15 Dose: 200 mls/hr Documented by: Infusion: 02/10/20 17:25 Dose: 0 mls/hr Documented by: Admin: 02/10/20 16:50 Dose: 200 mls/hr Documented by: Infusion: 02/10/20 10:07 Dose: 0 mls/hr Documented by: Admin: 02/10/20 09:37 Dose: 200 mls/hr Documented by: Infusion: 02/10/20 02:25 Dose: 200 mls/hr Documented by: Admin: 02/10/20 01:55 Dose: 200 mls/hr Documented by: Infusion: 02/09/20 20:45 Dose: 200 mls/hr Documented by: Admin: 02/09/20 20:15 Dose: 200 mls/hr Documented by: Infusion: 02/09/20 15:56 Dose: 200 mls/hr Documented by: Admin: 02/09/20 14:34 Dose: 200 mls/hr Documented by: Infusion: 02/09/20 11:09 Dose: 200 mls/hr Documented by: Admin: 02/09/20 08:43 Dose: 200 mls/hr Documented by: Infusion: 02/09/20 02:31 Dose: 200 mls/hr Documented by: Admin: 02/09/20 02:01 Dose: 200 mls/hr Documented by: [email or web address] Magnesium Sulfate (Magnesium Sulfate) 4 gm in 100 mls @ 25 mls/hr IV ONCE ONE Stop: 02/15/20 16:29 Last Admin: 02/15/20 13:15 Dose: 25 mls/hr Documented by: [email or web address] Insulin Human Lispro (Humalog) 0 unit SQ ACHS MALENA; Protocol Last Admin: 02/15/20 14:55 Dose: 4 units Documented by: Admin: 02/15/20 08:27 Dose: Not Given Documented by: Admin: 02/14/20 21:07 Dose: 6 units Documented by: Admin: 02/14/20 17:50 Dose: 8 units Documented by: [email or web address] Admin: 02/14/20 12:20 Dose: 2 units Documented by: [email or web address] Admin: 02/14/20 07:08 Dose: Not Given Documented by: [email or web address] Admin: 02/13/20 21:17 Dose: 6 units Documented by: [email or web address] Admin: 02/13/20 17:41 Dose: 8 units Documented by: [email or web address] Admin: 02/13/20 11:30 Dose: Not Given Documented by: [email or web address] Admin: 02/13/20 08:16 Dose: Not Given Documented by: [email or web address] Admin: 02/12/20 20:46 Dose: 6 units Documented by: Admin: 02/12/20 17:41 Dose: Not Given Documented by: Admin: 02/12/20 11:59 Dose: Not Given Documented by: Admin: 02/12/20 08:57 Dose: Not Given Documented by: Admin: 02/11/20 21:06 Dose: Not Given Documented by: Admin: 02/11/20 18:00 Dose: Not Given Documented by: Admin: 02/11/20 12:12 Dose: Not Given Documented by: Admin: 02/11/20 08:40 Dose: Not Given Documented by: Admin: 02/10/20 21:44 Dose: 2 units Documented by: Admin: 02/10/20 17:25 Dose: 2 units Documented by: Admin: 02/10/20 10:46 Dose: Not Given Documented by: Admin: 02/10/20 07:50 Dose: Not Given Documented by: Admin: 02/09/20 20:37 Dose: Not Given Documented by: Admin: 02/09/20 16:54 Dose: Not Given Documented by: Admin: 02/09/20 11:17 Dose: Not Given Documented by: Admin: 02/09/20 07:59 Dose: Not Given Documented by: Admin: 02/08/20 20:55 Dose: Not Given Documented by: Admin: 02/08/20 17:59 Dose: 6 units Documented by: Admin: 02/08/20 11:52 Dose: Not Given Documented by: Admin: 02/08/20 08:06 Dose: Not Given Documented by: Admin: 02/07/20 22:16 Dose: Not Given Documented by: Admin: 02/07/20 17:48 Dose: Not Given Documented by: [email or web address] Levothyroxine Sodium (Synthroid) 125 mcg IV QAMAC [facility] Admin: 02/15/20 10:01 Dose: 125 mcg Documented by: Admin: 02/14/20 07:04 Dose: 125 mcg Documented by: LUIS ARMANDO Admin: 02/13/20 10:26 Dose: 125 mcg Documented by: LUIS ARMANDO Admin: 02/12/20 08:27 Dose: 125 mcg Documented by: Admin: 02/11/20 08:10 Dose: 125 mcg Documented by: Admin: 02/10/20 07:15 Dose: 125 mcg Documented by: Admin: 02/09/20 08:43 Dose: 125 mcg Documented by: Admin: 02/08/20 08:25 Dose: 125 mcg Documented by: CAREY Magnesium Oxide (Magnesium Oxide) 400 mg PO BID [facility] Last Admin: 02/15/20 10:01 Dose: 400 mg Documented by: Admin: 02/14/20 20:49 Dose: 400 mg Documented by: Admin: 02/14/20 07:20 Dose: 400 mg Documented by: [email or web address] Admin: 02/13/20 21:18 Dose: 400 mg Documented by: [email or web address] Admin: 02/13/20 10:29 Dose: 400 mg Documented by: [email or web address] Admin: 02/12/20 20:26 Dose: 400 mg Documented by: [email or web address] Methylprednisolone Sodium Succinate (Solu-Medrol) 62.5 mg IV DAILY [facility] Admin: 02/15/20 10:03 Dose: 62.5 mg Documented by: Admin: 02/14/20 07:20 Dose: 62.5 mg Documented by: LUIS ARMANDO Admin: 02/13/20 10:28 Dose: 62.5 mg Documented by: LUIS ARMANDO Admin: 02/12/20 10:43 Dose: 62.5 mg Documented by: Admin: 02/11/20 08:09 Dose: 62.5 mg Documented by: Admin: 02/10/20 07:14 Dose: 62.5 mg Documented by: Admin: 02/09/20 08:44 Dose: 62.5 mg Documented by: Admin: 02/08/20 08:27 Dose: 62.5 mg Documented by: CAREY Ondansetron HCl (Zofran) 4 mg IV Q4HP PRN PRN Reason: Nausea And Vomiting Last Admin: 02/13/20 05:57 Dose: 4 mg Documented by: Admin: 02/12/20 06:04 Dose: 4 mg Documented by: Admin: 02/12/20 00:25 Dose: 4 mg Documented by: Admin: 02/08/20 09:27 Dose: 4 mg Documented by: Admin: 02/07/20 22:02 Dose: 4 mg Documented by: [email or web address] Polyethylene Glycol (Miralax) 17 gm PO TID [facility] Admin: 02/15/20 14:53 Dose: 17 gm Documented by: Admin: 02/15/20 10:02 Dose: 17 gm Documented by: Admin: 02/14/20 20:49 Dose: 17 gm Documented by: Admin: 02/14/20 13:25 Dose: 17 gm Documented by: LUIS ARMANDO Admin: 02/14/20 07:18 Dose: 17 gm Documented by: LUIS ARMANDO Admin: 02/13/20 21:15 Dose: 17 gm Documented by: [email or web address] Admin: 02/13/20 14:55 Dose: 17 gm Documented by: LUIS ARMANDO Admin: 02/13/20 10:26 Dose: 17 gm Documented by: [email or web address] Pyridostigmine [place] (Regonol) 5 mg IM Q6 [facility] Last Admin: 02/15/20 14:53 Dose: 5 mg Documented by: Admin: 02/15/20 05:21 Dose: 5 mg Documented by: Admin: 02/14/20 23:54 Dose: 5 mg Documented by: Admin: 02/14/20 17:51 Dose: 5 mg Documented by: [email or web address] Shift Summary 02/15/20 05:07 Shift Summary by Merry Black Addendum entered by Saida Cohen R.N. 02/15/20 05:23: Laboratory Tests 02/14/20 05:20 Potassium 4.2 Calcium 5.7 L* Phosphorus 2.7 Magnesium 2.0 Pt has received several riders the last few days. On scheduled calcium gluconate rider. Dressing to abd CDI kori intact. Denies n/v tolerating regular diet. Accu checks AC and HS. Pt also has 24ga SL to left wrist area. Original Note: AOX4. Up to BSC with assist. Walked in hallways last night. Ileostomy is putting thick brown stool. No complaint of dizziness on this shift. NS @ 125 to left port. IV dilaudid Q2H prn. Empties on ostomy. Patient possible discharge today. Initialized on 02/15/20 05:07 - END OF NOTE
[2020-02-15] MEDS ORDERED: HEPARIN SODIUM,PORCINE/PF 500 UNIT/5 ML SYRINGE IV ONE ×2 (18:08→18:20)
--- NOTE | 2020-02-24 12:45 | Operative Note ---
DATE OF OPERATION: 02/07/2020 PREOPERATIVE DIAGNOSES: Small bowel obstruction and chronic intestinal pseudoobstruction. POSTOPERATIVE DIAGNOSES: Severe intestinal adhesions with mechanical ileal obstruction and chronic intestinal pseudoobstruction. PROCEDURE: Exploratory laparotomy with extensive adhesiolysis. SURGEON: Bertha Currie M.D. FINDINGS: Total small bowel adhesive disease with area of complete obstruction at an area of previous small bowel resection and anastomosis. There was another area of near complete obstruction of the terminal ileum a few centimeters proximal to the ileostomy stoma. There was also a small parastomal hernia. DESCRIPTION OF PROCEDURE: Under general anesthesia, the ileostomy was sutured closed with running locking 2-0 silk. Timeout procedure was carried out as per protocol. The abdomen was prepped and draped and covered with Vi-drape. Midline incision was made. There were tight adhesions to the anterior abdominal wall, and using great care the wall of the bowel was from the peritoneum with primarily sharp dissection using Metzenbaum scissors. There were a few areas where the bowel was attached by filmy adhesions, and these were released with electrocautery. Every loop of bowel was densely adherent to another loop of bowel, so with great care, I was able to separate the loops of bowel. I started initially in the pelvis since radiographically that appeared to be an area of obstruction. I came upon an area where there was an obvious anastomosis. This was stuck to the retroperitoneum. Using Metzenbaum scissors, this was dissected free and the bowel was then elevated out of the peritoneal cavity. Using fine Metzenbaum scissors, the dense, well-matured adhesions were lysed until the area was completely straightened. Gas easily moved from the dilated proximal bowel into the distal decompressed bowel, and this was felt to be the major area of interest. Next, I worked proximally until I reached the jejunum. All of this bowel was dilated, but no area of obstruction was noted. I then dissected distally until I came to another area about 8 to 10 cm proximal to the stoma. This was tightly adhesed in a very tight band. These adhesions were lysed and this bowel was freed. The rest of the bowel was decompressed, and I followed all the bowel up to the stoma. There was a small parastomal hernia with two loops of bowel adherent in the hernia. They were higher but not obstructed. Once this was done, irrigation was carried out. Sponge, needle, instrument, and blade counts were verified as correct. The wall of the bowel was inspected to make sure there was no puncture or enterotomy. None was seen. The bowel and peritoneal cavity were copiously irrigated after which the fascia and peritoneum was closed with running #1 Prolene. Subcutaneous tissue was closed with 2-0 Monocryl. Skin was closed with kori. Tegaderm dressing was placed. The stoma was opened and a stoma appliance was placed. The patient tolerated the procedure well. She was awakened, transferred to a bed, and taken to the postanesthetic care unit in stable, satisfactory condition. LCS:naldo Job ID: [id number] Doc ID: [id number] Bertha Currie M.D.
== END 2020-02-15 18:35 | disposition home or self-care (01) | DRG 336 ==
LOC: MEDSUR 01:38 → ED 01:38 → SUATTDRO 03:24 → MEDSUR 03:24
PROVIDERS: ADMIT Family Medicine Adult Medicine; ATTEND Family Medicine Adult Medicine

== ENCOUNTER 2020-02-22 03:24 | Inpatient (IN) ==
[2020-02-22] MEDS ORDERED: LACTATED RINGERS 1,000 ML IV ONE ×3 (03:40→05:56)
[2020-02-22] MEDS ORDERED: ONDANSETRON 4 MG/2 ML VIAL IV ONE (03:43)
[2020-02-22] MEDS ORDERED: METOCLOPRAMIDE 10 MG/2 ML VIAL IV ONE (03:43)
[2020-02-22] MEDS: HYDROmorphone 0.5 MG/0.5 ML SYRINGE IV PRN ×9 (03:54→21:43)
[2020-02-22 04:33] LABS: Basophils # (Auto) 0.06 K/mcL (0.00-0.30); Basophils % (Auto) 0.4 % (0.0-2.0); Eosinophils # (Auto) 0.14 K/mcL (0.00-0.70); Eosinophils % (Auto) 0.9 % (0.0-7.0); Hematocrit 42.9 % (34.1-44.9); Hemoglobin 13.8 g/dL (11.2-15.7); Lymphocytes # (Auto) 2.06 K/mcL (1.50-4.80); Lymphocytes % (Auto) 13.3 % (15.5-49.0); Mean Cell Volume 85.6 fL (80.0-100.0); Mean Corpuscular HGB Conc 32.2 g/dL (31.0-36.0); Mean Platelet Volume 9.8 fL (7.4-10.4); Monocytes % (Auto) 8.4 % (1.0-12.0); Platelet Count 349 K/mcL (140-440); RBC 5.01 M/mcL (3.59-5.38); Red Cell Distribution Width 15.3 % (11.5-14.5); WBC 15.5 K/mcL (4.50-11.00)
[2020-02-22 04:52] LABS: ALT/SGPT 26 U/l (0-40); AST/SGOT 18 U/l (0-37); Albumin 3.3 gm/dL (3.2-5.2); Albumin/Globulin Ratio 1.1 (1.0-2.3); Alkaline Phosphatase 111 U/L (39-117); Bilirubin,Total 0.6 mg/dL (0.0-1.0); Calcium 7.2 mg/dl (8.6-10.4); Carbon Dioxide 21 mmol/L (22-30); Globulin 3.1 gm/dL (2.2-3.7); Glucose 335 mg/dL (70-105)
[2020-02-22 05:00] LABS: Blood Urea Nitrogen 34 mg/dl (6-20); Chloride 83 mmol/L (96-108); Glomerular Filtration Rate 25
[2020-02-22] MEDS ORDERED: PROMETHAZINE 25 MG/ML VIAL IV ONE (05:15)
[2020-02-22] MEDS ORDERED: INSULIN REGULAR, HUMAN 1 UNIT/0.01 ML UNIT SQ ONE (05:15)
[2020-02-22] MEDS ORDERED: PIPERACILLIN SODIUM/TAZOBACTAM 3.375 GM in DEXTROSE 5% IN WATER 50 ML IV ONE (06:31)
[2020-02-22] MEDS ORDERED: LEVOFLOXACIN 750 MG/150 ML BAG IV ONE (06:31)
[2020-02-22] MEDS ORDERED: VANCOMYCIN 1,000 MG in 0.9 % SODIUM CHLORIDE 250 ML IV ONE (06:31)
--- NOTE | 2020-02-22 06:37 | Emergency Department Note ---
Nausea/Vomiting/Diarrhea HPI - General Chief complaint: Nausea/Vomiting/Diarrhea Stated complaint: nausea and vomiting Time Seen by Provider: 02/22/20 03:38 Mode of arrival: wheelchair - History of Present Illness HPI Narrative: This patient returns the emergency room. She was seen yesterday primarily with some postop pain after having adhesion lysis surgery 2 weeks ago. Over the last day she has developed nausea and vomiting. Continues have some abdominal discomfort. She has a history of intestinal pseudoobstruction. She has had no cough congestion shortness of breath fever chills. Her heart rate is high and she seems dehydrated. - Related Data Home Medications Medication Instructions Recorded Confirmed DULoxetine [Cymbalta] 30 mg PO BID 11/30/16 02/01/20 Levothyroxine [Synthroid] 250 mcg PO QAMAC 08/20/17 02/01/20 Calcitriol [Rocaltrol] 0.5 mcg PO TID 02/11/19 02/01/20 Insulin Glargine, Human [Lantus] 5 unit SQ BID 09/30/19 02/01/20 Cyclobenzaprine [Flexeril] 10 mg PO BIDP PRN 12/13/19 02/01/20 Magnesium Oxide [Magnesium] 500 mg PO BID 12/13/19 02/01/20 Ondansetron [Zofran ODT] 4 mg SL Q4HP PRN 12/24/19 02/01/20 Promethazine [Phenergan] 25 mg ID Q6HP PRN 12/24/19 02/01/20 Previous Rx's Medication Instructions Recorded predniSONE [Prednisone] 20 mg PO [facility] #4 tab 05/18/16 metFORMIN HCL [Metformin HCl] 500 mg PO DAILY #30 tab 10/17/18 Promethazine [Phenergan] 25 mg PO Q6HP PRN #60 tab 02/13/19 Acetaminophen [Tylenol] 650 mg PO Q6HP PRN tab 10/05/19 Accu-Chek 1 each FS ACHS strip 12/03/19 erythromycin 250 mg tablet,delayed 250 mg PO QID #120 tablet. 01/04/20 release pyridostigmine bromide 5 mg/mL 10 mg IM Q6H #240 ml 01/04/20 injection solution Nitrofurantoin Sr [Macrobid] 100 mg PO BID #14 cap 01/31/20 Gabapentin [Neurontin] 300 mg PO QID #120 cap 02/15/20 traMADol [Ultram] 50 mg PO Q6HP PRN #60 tab 02/15/20 Ondansetron [Zofran ODT] 4 mg SL Q4-6HP PRN #10 tab 02/20/20 Allergies Allergy/AdvReac Type Severity Reaction Status Date / Time Sulfa (Sulfonamide Allergy Severe Anaphylaxis Verified 02/22/20 03:51 Antibiotics) adhesive tape AdvReac Mild Blister Verified 02/22/20 03:51 metoclopramide [From Reglan] AdvReac Mild Anxiety Verified 02/22/20 03:51 steri strips AdvReac Mild Blister Uncoded 12/02/19 06:48 Review of Systems All systems ED: reviewed and negative except as stated. 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 (Chronic) Diabetes mellitus type 2, uncontrolled (Chronic) LA (obstructive sleep apnea) (Chronic) Hypertension (Chronic) Obesity, Class II, BMI 35-39.9 (Chronic) Low blood magnesium level (Chronic) Sinus tachycardia (Resolved) Abdominal pain (Chronic) Chronic use of steroids (Chronic) Abnormal liver enzymes (Chronic) Hypothyroidism (Chronic) Sarcoidosis (Chronic) Polyglandular autoimmune syndrome (Chronic) Recurrent abdominal pain (Chronic) Abdominal pain (Resolved) Abdominal wound dehiscence (Resolved) Achalasia and cardiospasm (Resolved) Acute respiratory insufficiency (Resolved) Adverse reaction to drug (Resolved) Anaphylaxis (Resolved) Bowel obstruction (Resolved) 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) Constipation due to neurogenic bowel (Resolved) Constipation due to pain medication therapy (Resolved) Dehydration (Resolved) Dehydration (Resolved) Encounter for care related to Port-a-Cath (Resolved) Fecal impaction (Resolved) Foot sprain (Resolved) Hypercalcemia (Resolved) Hypocalcemia (Resolved) Hyponatremia (Resolved) Ileus (Resolved) Infiltrate of lung present on imaging of chest (Resolved) Intractable vomiting (Resolved) Lactic acid acidosis (Resolved) Nausea (Resolved) Nausea & vomiting (Resolved) Nausea & vomiting (Resolved) Nausea and vomiting (Resolved) Obstruction of descending colon (Resolved) Pancreatitis (Resolved) Parastomal hernia with obstruction, without gangrene (Resolved) Partial intestinal obstruction, unspecified as to cause (Resolved) Partial small bowel obstruction (Resolved) Pneumonia (Resolved) Primary chronic pseudo-obstruction of large intestine (Resolved) Pseudoobstruction of colon (Resolved) Pyelonephritis (Resolved) Sepsis (Resolved) Sepsis associated hypotension (Resolved) Sepsis with acute hypoxic respiratory failure (Resolved) Severe sepsis (Resolved) Sigmoid volvulus (Resolved) Sinus tachycardia (Resolved) Small bowel obstruction (Resolved) Small bowel obstruction (Resolved) Small bowel obstruction (Resolved) Small bowel obstruction (Resolved) Small bowel obstruction (Resolved) Small bowel obstruction (Resolved) Small bowel obstruction due to adhesions (Resolved) Small bowel obstruction due to postoperative adhesions (Resolved) Small bowel obstruction, partial (Resolved) Supraventricular tachycardia (Resolved) UTI (urinary tract infection) (Resolved) UTI (urinary tract infection) (Resolved) Volvulus of sigmoid colon (Resolved) Past Surgical History (Last Reviewed 10/19/19 @ 12:47 by Bertha Currie MD) History of exploratory laparotomy (Acute) History of exploratory laparotomy (Acute) History of exploratory laparotomy (Acute) History of exploratory laparotomy (Acute) S/P ileostomy (Resolved) Family History (Last Reviewed 10/19/19 @ 12:47 by Bertha Currie MD) Father CAD (coronary artery disease) Mother CAD (coronary artery disease) Grandfather CVA (cerebral vascular accident) Grandmother CVA (cerebral vascular accident) Medical history: Reports: COPD, hypertension, hypothyroidism, other (Myasthenia gravis). 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 Denies: marijuana Physical Exam Abdomen shows a vertical incision with kori still in place. She has an ileostomy in the right side of her abdomen. She has some mild diffuse abdominal tenderness Limitations: no limitations General appearance: alert Head: atraumatic Eye: Present: normal appearance ENT: Present: normal exam Neck: Present: normal inspection Chest: Present: normal inspection Respiratory: Present: normal lung sounds bilaterally Cardiovascular: Present: regular rate, normal rhythm, tachycardia, normal heart sounds Abdominal: Present: soft, tenderness. Absent: distention, guarding, rebound Neurological: Present: alert Psychiatric: Present: normal affect Skin: Present: warm, dry Course Vital Signs Temperature 96.8 F L 02/22/20 03:25 Temperature 96.8 F L 02/22/20 03:25 Pulse Rate 122 H 02/22/20 07:46 Respiratory Rate 13 02/22/20 07:46 Blood Pressure 114/91 02/22/20 07:46 Pulse Oximetry (%) 95 02/22/20 07:46 Nausea/Vomiting/Diarrhea - MDM Narrative Medical decision making narrative: Was concerned that this patient might be septic with a lactic acid of 3.7. She also may have an element of diabetic ketoacidosis and dehydration. We have hydrated her with cultures are we have ordered 3 antibiotics and I discussed the case with Dr. Currie and Dr. Boyd. She will be admitted to the hospital by Dr. Currie with Dr. Boyd consulting. There is a noncontrast CT chest abdomen and pelvis pending. - Lab Data Lab results reviewed: Yes I reviewed the patient's lab results. Result diagrams: 02/22/20 04:00 02/22/20 04:00 Lab Results 02/22/20 02/22/20 02/22/20 Range/Units 04:00 04:00 04:00 WBC 15.5 H (4.50-11.00) K/mcL RBC 5.01 (3.59-5.38) M/mcL Hgb 13.8 (11.2-15.7) g/dL Hct 42.9 (34.1-44.9) % MCV 85.6 (80.0-100.0) fL MCH 27.5 (26.0-34.0) pg MCHC 32.2 (31.0-36.0) g/dL RDW 15.3 H (11.5-14.5) % Plt Count 349 (140-440) K/mcL MPV 9.8 (7.4-10.4) fL Gran % 77.0 (38.0-78.0) % Lymph % (Auto) 13.3 L (15.5-49.0) % [place] % (Auto) 8.4 (1.0-12.0) % Eos % (Auto) 0.9 (0.0-7.0) % Baso % (Auto) 0.4 (0.0-2.0) % Gran # 11.94 H (1.80-8.00) K/mcL Lymph # (Auto) 2.06 (1.50-4.80) K/mcL [place] # (Auto) 1.30 H (0.10-0.90) K/mcL Eos # (Auto) 0.14 (0.00-0.70) K/mcL Baso # (Auto) 0.06 (0.00-0.30) K/mcL VBG Lactic Acid (0.5-2.0) mmol/L Sodium 127 L (133-145) mmol/L Potassium 4.5 (3.3-5.1) mmol/L Chloride 83 L (96-108) mmol/L Carbon Dioxide 21 L (22-30) mmol/L Anion Gap 23.0 H (8-16) BUN 34 H (6-20) mg/dl Creatinine 2.1 H (0.6-1.1) mg/dl GFR Calculation 25 Glucose 335 H (70-105) mg/dL Calcium 7.2 L (8.6-10.4) mg/dl Total Bilirubin 0.6 (0.0-1.0) mg/dL AST 18 (0-37) U/l ALT 26 (0-40) U/l Alkaline Phosphatase 111 (39-117) U/L Total Protein 6.4 (5.9-8.4) gm/dL Albumin 3.3 (3.2-5.2) gm/dL Globulin 3.1 (2.2-3.7) gm/dL Albumin/Globulin Ratio 1.1 (1.0-2.3) Beta-Hydroxybutyrate 0.53 H (< 0.27) mmol/L 02/22/20 Range/Units 05:24 WBC (4.50-11.00) K/mcL RBC (3.59-5.38) M/mcL Hgb (11.2-15.7) g/dL Hct (34.1-44.9) % MCV (80.0-100.0) fL MCH (26.0-34.0) pg MCHC (31.0-36.0) g/dL RDW (11.5-14.5) % Plt Count (140-440) K/mcL MPV (7.4-10.4) fL Gran % (38.0-78.0) % Lymph % (Auto) (15.5-49.0) % [place] % (Auto) (1.0-12.0) % Eos % (Auto) (0.0-7.0) % Baso % (Auto) (0.0-2.0) % Gran # (1.80-8.00) K/mcL Lymph # (Auto) (1.50-4.80) K/mcL [place] # (Auto) (0.10-0.90) K/mcL Eos # (Auto) (0.00-0.70) K/mcL Baso # (Auto) (0.00-0.30) K/mcL VBG Lactic Acid 3.7 H (0.5-2.0) mmol/L Sodium (133-145) mmol/L Potassium (3.3-5.1) mmol/L Chloride (96-108) mmol/L Carbon Dioxide (22-30) mmol/L Anion Gap (8-16) BUN (6-20) mg/dl Creatinine (0.6-1.1) mg/dl GFR Calculation Glucose (70-105) mg/dL Calcium (8.6-10.4) mg/dl Total Bilirubin (0.0-1.0) mg/dL AST (0-37) U/l ALT (0-40) U/l Alkaline Phosphatase (39-117) U/L Total Protein (5.9-8.4) gm/dL Albumin (3.2-5.2) gm/dL Globulin (2.2-3.7) gm/dL Albumin/Globulin Ratio (1.0-2.3) Beta-Hydroxybutyrate (< 0.27) mmol/L Disposition Pt seen by SLATE TRIMMER/PA only: No Clinical Impression: Nausea & vomiting, Diabetes mellitus type 2, uncontrolled, Abdominal pain, Diabetic ketoacidosis, Sepsis, Dehydration Disposition: Xfer As Inpt ([facility]) Condition: Fair Referrals: Douglas Haque MD [Primary Care Provider] - Time of Disposition: 08:24
--- NOTE | 2020-02-22 08:33 | Internal Medicine Consult Note ---
Medical - CN: HPI - Data of Consult Consult date: 02/22/20 Requesting physician: Bertha Currie (med managment) Primary Care Provider: Douglas Haque - Consult Narrative Reason for consult: Management of medical issues History of present illness: Ms. 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 Following failed conservative management she underwent exploratory laparotomy with adhesion lysis on February 06. She was thereafter discharged in stable state however she noticed recurrence of symptoms and presented on February 19 with nausea vomiting and abdominal pain.following initial treatment with antiemetics and fluids she felt better and was discharged home. Symptoms thereafter continued to worsen with increasing abdominal distention, pain, loss of appetite and severe dehydration over the next 48 hours prompting her to present to the ER again. Initial work-up was consistent with acute renal failure/sinus tachycardia/hypertension elevated white count consistent with severe sepsis syndrome, endorgan dysfunction. Surgery was consulted. CT abdomen pelvis was ordered. Hospital service was consulted for management of medical issues while patient readmitted by surgery in light of postoperative symptoms requiring further evaluation. Patient was empirically started on Zosyn vancomycin and Levaquin after cultures were drawn. Tachycardia improved following administration of 2 L of crystalloids from 140s to 110 At the time of evaluation patient is alert and oriented. She was able to answer most of the questions endorse history as above. She endorses drenching sweats. She appears quite anxious and distressed. She denies headache photophobia, myalgia. She denies changes in her medications or diet. Review of systems 10 point review system was performed and is negative except for ones cussed above CC: Medical - CN: PMH Medical history: Chronic, continuous use of opioids (Chronic) Myasthenia gravis (Chronic) Obesity, Class II, BMI 35-39.9 (Chronic) LA (obstructive sleep apnea) (Chronic) Hypertension (Chronic) Diabetes mellitus type 2, uncontrolled (Chronic) Sinus tachycardia (Resolved) Chronic intestinal pseudo-obstruction (Chronic) Abdominal pain (Chronic) Recurrent intestinal obstruction (Chronic) Chronic use of steroids (Chronic) Abnormal liver enzymes (Chronic) Hypothyroidism (Chronic) Sarcoidosis (Chronic) Polyglandular autoimmune syndrome (Chronic) Recurrent abdominal pain (Chronic) Abdominal pain (Resolved) Abdominal wound dehiscence (Resolved) Achalasia and cardiospasm (Resolved) Acute respiratory insufficiency (Resolved) Adverse reaction to drug (Resolved) Anaphylaxis (Resolved) Bowel obstruction (Resolved) 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) Constipation due to neurogenic bowel (Resolved) Constipation due to pain medication therapy (Resolved) Dehydration (Resolved) Dehydration (Resolved) Encounter for care related to Port-a-Cath (Resolved) Fecal impaction (Resolved) Foot sprain (Resolved) Hypercalcemia (Resolved) Hypocalcemia (Resolved) Hyponatremia (Resolved) Ileus (Resolved) Infiltrate of lung present on imaging of chest (Resolved) Intractable vomiting (Resolved) Lactic acid acidosis (Resolved) Nausea (Resolved) Nausea & vomiting (Resolved) Nausea & vomiting (Resolved) Nausea and vomiting (Resolved) Obstruction of descending colon (Resolved) Pancreatitis (Resolved) Parastomal hernia with obstruction, without gangrene (Resolved) Partial intestinal obstruction, unspecified as to cause (Resolved) Pneumonia (Resolved) Primary chronic pseudo-obstruction of large intestine (Resolved) Pseudoobstruction of colon (Resolved) Pyelonephritis (Resolved) Sepsis (Resolved) Sepsis associated hypotension (Resolved) Sepsis with acute hypoxic respiratory failure (Resolved) Severe sepsis (Resolved) Sigmoid volvulus (Resolved) Small bowel obstruction (Resolved) Small bowel obstruction (Resolved) Small bowel obstruction (Resolved) Small bowel obstruction (Resolved) Small bowel obstruction (Resolved) Small bowel obstruction due to adhesions (Resolved) Small bowel obstruction due to postoperative adhesions (Resolved) Small bowel obstruction, partial (Resolved) Supraventricular tachycardia (Resolved) UTI (urinary tract infection) (Resolved) UTI (urinary tract infection) (Resolved) Volvulus of sigmoid colon (Resolved) Past Surgical History History of exploratory laparotomy (Acute) History of exploratory laparotomy (Acute) History of exploratory laparotomy (Acute) History of exploratory laparotomy (Acute) S/P ileostomy (Resolved) Social History No Social History Section defined Family History Father CAD (coronary artery disease) Mother CAD (coronary artery disease) Grandfather CVA (cerebral vascular accident) Grandmother CVA (cerebral vascular accident) Medical - CN: Meds Home Medications Medication Instructions Recorded Confirmed Type predniSONE [Prednisone] 20 mg PO [facility] #4 tab 05/18/16 02/22/20 Rx DULoxetine [Cymbalta] 30 mg PO BID 11/30/16 02/22/20 History Levothyroxine [Synthroid] 250 mcg PO QAMAC 08/20/17 02/22/20 History metFORMIN HCL [Metformin HCl] 500 mg PO DAILY #30 tab 10/17/18 02/22/20 Rx Calcitriol [Rocaltrol] 0.5 mcg PO TID 02/11/19 02/22/20 History Promethazine [Phenergan] 25 mg PO Q6HP PRN #60 tab 02/13/19 02/22/20 Rx Insulin Glargine, Human [Lantus] 5 unit SQ BID 09/30/19 02/22/20 History Acetaminophen [Tylenol] 650 mg PO Q6HP PRN tab 10/05/19 02/22/20 Rx Accu-Chek 1 each FS ACHS strip 12/03/19 02/22/20 Rx Cyclobenzaprine [Flexeril] 10 mg PO BIDP PRN 12/13/19 02/22/20 History Magnesium Oxide [Magnesium] 500 mg PO BID 12/13/19 02/22/20 History Ondansetron [Zofran ODT] 4 mg SL Q4HP PRN 12/24/19 02/22/20 History Promethazine [Phenergan] 25 mg NC Q6HP PRN 12/24/19 02/22/20 History erythromycin 250 mg tablet,delayed 250 mg PO QID #120 tablet. 01/04/20 02/22/20 Rx release pyridostigmine bromide 5 mg/mL 10 mg IM Q6H #240 ml 01/04/20 02/22/20 Rx injection solution Gabapentin [Neurontin] 300 mg PO QID #120 cap 02/15/20 02/22/20 Rx traMADol [Ultram] 50 mg PO Q6HP PRN #60 tab 02/15/20 02/22/20 Rx Allergies Allergy/AdvReac Type Severity Reaction Status Date / Time Sulfa (Sulfonamide Allergy Severe Anaphylaxis Verified 02/22/20 03:51 Antibiotics) adhesive tape AdvReac Mild Blister Verified 02/22/20 03:51 metoclopramide [From Reglan] AdvReac Mild Anxiety Verified 02/22/20 03:51 steri strips AdvReac Mild Blister Uncoded 12/02/19 06:48 Medical - CN: Exam - Constitutional Vitals: Temp Pulse Resp BP Pulse Ox 96.8 F L 120 H 12 125/87 97 02/22/20 03:25 02/22/20 08:16 02/22/20 08:16 02/22/20 08:16 02/22/20 08:16 General appearance: moderate distress (Abdominal discomfort) Exam: Head normocephalic oral cavity dry No ear nose discharge Neck lymphadenopathy Eye movement symmetrical S1-S2 tachycardia ESM grade Diminished breath sounds bases Abdomen minimally distended, hypoactive bowel sounds, midline incision scar with kori with no surrounding erythema redness or fluctuance. Right lower quadrant ostomy bag draining copious amount of liquid stool. Skin no suspicious lesion lower extremity no cyanosis clubbing or joint swelling psych alert cooperative Neuro nonfocal Medical - CN: Result - Labs CBC & Chem 7: 02/23/20 05:10 02/23/20 05:10 Labs: Short CBC 02/22/20 Range/Units 04:00 WBC 15.5 H (4.50-11.00) K/mcL Hgb 13.8 (11.2-15.7) g/dL Hct 42.9 (34.1-44.9) % Plt Count 349 (140-440) K/mcL BMP 02/22/20 04:00 Sodium 127 L Potassium 4.5 Chloride 83 L Carbon Dioxide 21 L BUN 34 H Creatinine 2.1 H Glucose 335 H Calcium 7.2 L Liver Function 02/22/20 Range/Units 04:00 Total Bilirubin 0.6 (0.0-1.0) mg/dL AST 18 (0-37) U/l ALT 26 (0-40) U/l Alkaline Phosphatase 111 (39-117) U/L Albumin 3.3 (3.2-5.2) gm/dL Medical - CN: A/P (1) Severe sepsis Status: Acute Assessment and plan: * Severe sepsis-unclear etiology. Rule out postoperative causes. Abdominal CT pending. Surgery on board * Acute bowel obstruction on CT following recent intestinal obstruction/post exploratory laparotomy. Managed by surgery Hospitalist consult for management of medical issues as below * Acute renal failure secondary to sepsis. Continue crystalloid challenge. Monitor renal function. Nephrology consult if worsening renal function. Avoid nephrotoxins/contrast * DM type II poorly controlled. Continue basal prandial insulin. Keep n.p.o. until symptoms improve and further recommendations from surgery * Hypothyroidism hold thyroxine * anxiety disorder use as needed IV benzodiazepine. * History of hypocalcemia secondary to hypoparathyroidism. IV calcium as indicated * History of panhypopituitarism-IV thyroxine as indicated * History of myasthenia gravis will start IV pyridostigmine/hydrocortisone * Morbid obesity BMI over 40 -continue frequent turning/nutrition support/decubitus precautions * History of obstructive sleep apnea not on CPAP due to increased air insufflation causing abdominal discomfort * Neuropathy on gabapentin at home. Hold until able to take p.o. * Full code * Prophylax Heparin Plan * Continue IV substitute for home medications * IV hydrocortisone * Avoid nephrotoxins * Crystalloid/antibiotics and de-escalate based on cultures * Admit to PCU. [place] 2 score 17 high risk decompensation with endorgan dysfunction * Postoperative care management per surgery
--- NOTE | 2020-02-22 09:09 | Cat Scan Report ---
CLINICAL INFORMATION: sepsis COMPARISON: Abdomen and pelvic CT 12/24/2019 chest x-ray 01/15/2019 TECHNIQUE: 0.625 mm helical slices were obtained from the lung apices through the subtrochanteric regions of the femurs. Following reconstruction, 2.5 mm sagittal, coronal and axial reformatted images were processed and reviewed at multiple windows and levels. 7 mm MIP reconstructions were obtained through the lungs to optimize nodule detection.The exam was performed using radiation dose optimization techniques including, but not limited to, automated exposure control, adjustment of the mA and/or kV according to patient size and use of iterative reconstruction technique. FINDINGS: Pulmonary parenchymal windows show subsegmental atelectasis and scarring in both posterior medial lower lobes. There is a 8 mm densely calcified granuloma in the right upper lobe which demonstrates long-term stability. There are no infiltrates and no effusions. Mediastinal windows show the noncontrasted thoracic aorta and pulmonary arteries are normal in diameter. Port-A-Cath tip is in stable satisfactory position at the SVC/ right atrial junction. There is no adenopathy in the mediastinal or hilar or axillary regions. GE junction is patulous and the thoracic esophagus is mildly dilated - this is a stable finding. Thyroid is diminutive. Abdominal images show the noncontrasted liver to be normal. The gallbladder is surgically absent. Intrahepatic and common bile ducts are normal caliber: CBD is 6 mm. The pancreas is mildly atrophic. Noncontrast kidneys, spleen, aorta and adrenal glands are normal. There is no free air, free fluid or adenopathy. Pelvic images show normal-appearing postmenopausal uterus, ovaries and urinary bladder. Subtotal colectomy changes with retention of the distal sigmoid colon and images compatible with a Baez's pouch. Also small bowel resection changes with anastomosis in the right lower quadrant. The stomach, duodenum and jejunum are markedly dilated due to a adhesion or stricture in the right lower quadrant small bowel segment on coronal image 66 and axial image 185. The distal small bowel is markedly depressed to the level of the right lower quadrant ileostomy. A small peristomal hernia with partially compresses the exiting small bowel. Midline laparotomy scar is healing. Bone windows show chronic L4-5 spondylolysis with grade 1 spondylolisthesis resulting in moderate central canal and severe IV foraminal narrowing at compression of the exiting L4 and descending L5 nerve roots IMPRESSION: 1. No source identified for sepsis within the chest abdomen or pelvis. 2. High-grade recurrent small bowel obstruction due to adhesions or stricture near a surgical anastomosis in the the right lower quadrant. There is also a small peristomal hernia which could be contributory to a second downstream small bowel obstruction. No evidence of third spacing and no free air to suggest perforation. Consider: repeat small bowel follow-through study following NG decompression 3. Mild pancreatic atrophy is stable 4. Subsegmental atelectasis and scarring in both lower lobes, but no evidence of pulmonary infiltrate. 5. Chronic L4-5 spondylolysis with grade 1 spondylolisthesis resulting in compression of the L4 and L5 nerve roots Interpreted and Authenticated by: All Lundberg 02/22/20
[2020-02-22] MEDS ORDERED: LEVOFLOXACIN 750 MG/150 ML BAG IV SCH (09:48)
[2020-02-22] MEDS ORDERED: ACETAMINOPHEN 325 MG TABLET PO PRN (09:48)
[2020-02-22] MEDS ORDERED: ONDANSETRON 4 MG ODT TABLET SL PRN (09:48)
[2020-02-22] MEDS ORDERED: DEXTROSE 31 GM ORAL.SUSP PO PRN (09:48)
[2020-02-22] MEDS ORDERED: PIPERACILLIN SODIUM/TAZOBACTAM 3.375 GM in DEXTROSE 5% IN WATER 50 ML IV SCH (09:48)
[2020-02-22] MEDS ORDERED: MAGNESIUM SULFATE 2 GM/50 ML BAG IV PRN (09:48)
[2020-02-22] MEDS ORDERED: DEXTROSE 50% 50 ML VIAL IV PRN (09:48)
[2020-02-22] MEDS ORDERED: VANCOMYCIN PER PHARMACY IV SCH (09:48)
[2020-02-22] MEDS: 0.9 % SODIUM CHLORIDE 1,000 ML IV SCH ×2 (09:50→19:02)
[2020-02-22] MEDS: HEPARIN 5,000 UNIT/ML VIAL SQ SCH ×2 (10:25→21:41)
[2020-02-22] MEDS: ONDANSETRON 4 MG/2 ML VIAL IV PRN ×3 (10:26→19:11)
[2020-02-22] MEDS: INSULIN LISPRO 1 UNIT/0.01 ML UNIT SQ SCH ×3 (11:00→21:40)
[2020-02-22] MEDS: PIPERACILLIN SODIUM/TAZOBACTAM 3.375 GM in DEXTROSE 5% IN WATER 50 ML IV SCH ×3 (11:14→17:55)
[2020-02-22 12:29] LABS: Appearance,Urine CLOUDY; Bacteria,Urine 0 /hpf (0); Bilirubin,Urine NEG (NEG); Calcium Oxalate Crystals,Urine MANY /hpf (0); Color,Urine AMBER; Culture Indicated,Urine YES; Glucose,Urine (UA) 50 mg/dL (NEG); Ictotest,Urine NEG (NEG); Ketones,Urine NEG (NEG); Leukocyte Esterase,Urine 25 /uL (NEG); Mucus,Urine MANY /hpf (0); Nitrate,Urine NEG (NEG); Protein,Urine 30 mg/dL (NEG); Specific Gravity,Urine 1.026 (1.000-1.035); Urine Blood NEG mg/dL (<0.03); Urine Hyaline Cast 205 /lpf (0-2); Urine RBC 3 /hpf (0-1); Urine Squamous Epithelial Cell 0 /hpf (0-4); Urine WBC 18 /hpf (0-4)
[2020-02-22] MEDS: VANCOMYCIN 1,500 MG in 0.9 % SODIUM CHLORIDE 500 ML IV SCH (12:45)
[2020-02-22] MEDS ORDERED: HYDROCORTISONE SOD SUCC 100 MG VIAL IV ONE (13:32)
[2020-02-22] MEDS ORDERED: FLUCONAZOLE 200 MG/100 ML BAG IV ONE (14:00)
[2020-02-22] MEDS ORDERED: MICONAZOLE NITRATE VAG SCH (14:00)
[2020-02-22] MEDS: PYRIDOSTIGMINE BROMIDE 10 MG/2 ML ML IM SCH ×2 (15:13→18:37)
[2020-02-22] MEDS: 0.9 % SODIUM CHLORIDE 10 ML SYRINGE IV SCH ×2 (15:24→21:42)
--- NOTE | 2020-02-22 16:25 | General Surg History&Physical ---
History of Present Illness Patient information: Note initiated : 02/22/20 at 4:19 pm Service Date, if different from initiated Date: [] Patient: Dayanna Guo a 59 y/o F admitted on 02/22/20 for nausea and vomiting. Chief Complaint: [] HPI: Ms. Guo is a 59 year old F long-term history of recurrent intestinal pseudoobstruction and partial obstruction due to adhesive disease. Patient was recently admitted from 31 January until 14 february. During that time she had near complete obstruction and on January and exploratory laparotomy with fixed extensive adhesiolysis was done. There was near complete obstruction of the area of prior small bowel resection with primary anastomosis. She also had another area of partial obstruction in the terminal ileum a few centimeters proximal to the stoma. A follow-up small bowel follow-through was done about 5 days postoperatively and she had transit through her bowel into the stoma and one half hours. At the time of discharge she was tolerating a regular diet and her abdominal x-ray showed small amount of gas in her mid gut, but otherwise her bowel was decompressed. Patient was scheduled to be seen in the office today. She states that she started having nausea about 5 days after arriving home. She has stable output through her stoma, but she had increasing vomiting. She also has some dizziness and muscle spasm. She was seen in the emergency room on 19 february an evaluation was suggestive of a gastroenteritis type picture and she was treated symptomatically and released. She states that she has had continued nausea and vomiting with continued output through her ileostomy but with almost no by mouth intake. In the anterolateral she has developed leukocytosis with lactic acidosis and dehydration. She states that she has not had significant abdominal pain. She has been seen by the hospitalist and started on triple antibiotics. She also was started on Diflucan because of severe vulvovaginitis. She has significant output through her ileostomy at this time including liquid and gas. However, her proximal bowel is significantly dilated. Her distal bowel is dilated but she continues to have good output. Review of Systems - Constitutional fatigue, headache(s), malaise, weakness, weight loss - EENT Nose, mouth and throat: dizziness, headache(s) - Cardiovascular dyspnea on exertion, palpatations, rapid heart rate - Respiratory no cough, no dyspnea on exertion - Gastrointestinal abdominal pain, bloating, change in bowel habits, cramping, nausea, vomiting - Musculoskeletal arthralgias, joint swelling, stiffness, other (joint pain) - Integumentary pruritus, rash, other (splotchy rash on lower extremitieS from knees down to feet; vulvovaginitis) - Neurological dizziness, headache(s), weakness - Psychiatric depression (situational depression) - Endocrine fatigue - Hematologic/Lymphatic no easy bleeding, no easy bruising, no lymphadenopathy - Allergic/Immunologic no tongue swelling, no throat swelling, no uticaria, no wheezing, no lip swelling Past History Past medical history: Chronic intestinal pseudoobstruction. Myasthenia gravis by history. Diabetes mellitus. Hypocalcemia. Chronic obstructive sleep apnea Past surgical history: Multiple laparotomies for obstruction. Right colectomy. Subtotal colectomy with Baez's Parastomal hernia repair. Incisional hernia repair. Laparoscopic adhesiolysis. Exploratory laparotomy with adhesiolysis. Exploratory laparotomy with small bowel resection for enterotomy. Recent laparotomy with adhesiolysis Past family history: Coronary artery disease Past social history: Former smoker. Denies alcohol use. Denies marijuana use Medications and Allergies Home Medications Medication Instructions Recorded Confirmed Type predniSONE [Prednisone] 20 mg PO [facility] #4 tab 05/18/16 02/22/20 Rx DULoxetine [Cymbalta] 30 mg PO BID 11/30/16 02/22/20 History Levothyroxine [Synthroid] 250 mcg PO QAMAC 08/20/17 02/22/20 History metFORMIN HCL [Metformin HCl] 500 mg PO DAILY #30 tab 10/17/18 02/22/20 Rx Calcitriol [Rocaltrol] 0.5 mcg PO TID 02/11/19 02/22/20 History Promethazine [Phenergan] 25 mg PO Q6HP PRN #60 tab 02/13/19 02/22/20 Rx Insulin Glargine, Human [Lantus] 5 unit SQ BID 09/30/19 02/22/20 History Acetaminophen [Tylenol] 650 mg PO Q6HP PRN tab 10/05/19 02/22/20 Rx Accu-Chek 1 each FS ACHS strip 12/03/19 02/22/20 Rx Cyclobenzaprine [Flexeril] 10 mg PO BIDP PRN 12/13/19 02/22/20 History Magnesium Oxide [Magnesium] 500 mg PO BID 12/13/19 02/22/20 History Ondansetron [Zofran ODT] 4 mg SL Q4HP PRN 12/24/19 02/22/20 History Promethazine [Phenergan] 25 mg MN Q6HP PRN 12/24/19 02/22/20 History erythromycin 250 mg tablet,delayed 250 mg PO QID #120 tablet. 01/04/20 02/22/20 Rx release pyridostigmine bromide 5 mg/mL 10 mg IM Q6H #240 ml 01/04/20 02/22/20 Rx injection solution Gabapentin [Neurontin] 300 mg PO QID #120 cap 02/15/20 02/22/20 Rx traMADol [Ultram] 50 mg PO Q6HP PRN #60 tab 02/15/20 02/22/20 Rx Allergies Allergy/AdvReac Type Severity Reaction Status Date / Time Sulfa (Sulfonamide Allergy Severe Anaphylaxis Verified 02/22/20 03:51 Antibiotics) adhesive tape AdvReac Mild Blister Verified 02/22/20 03:51 metoclopramide [From Reglan] AdvReac Mild Anxiety Verified 02/22/20 03:51 steri strips AdvReac Mild Blister Uncoded 12/02/19 06:48 Exam Temp Pulse Resp BP Pulse Ox 99.8 F H 122 H 20 118/82 99 02/22/20 14:46 02/22/20 13:01 02/22/20 14:46 02/22/20 14:46 02/22/20 14:46 - General physical appearance well developed, well nourished, moderate distress, moderate pain, chronically ill - Eyes PERRL, normal ocular movement - ENT normal pinna, normal nares, normal mucosa, no hearing loss, no congestion - Head Head exam IM: Present: atraumatic, normocephalic - Neck no masses, no bruits, trachea midline, no lymphadenopathy, no venous distension - Cardiovascular Cardiovascular exam IM: Present: normal rate and rhythm, +S1, +S2, tachycardia. Absent: JVD - Respiratory normal expansion, normal respiratory effort, clear to auscultation - Abdomen Abdomen: Present: soft, tender (mild tenderness and distention and upper abdomen; stoma looks good; incision is well healed), bowel sounds, distended Hernia: Present: none - Genitourinary Present: normal external genitalia - Integumentary Present: no rash, no growths, other (splotchy lesions with slight rash bilateral lower extremities) - Neurologic Present: normal coordination, normal sensation - Musculoskeletal Present: normal gait, normal posture - Psychiatric Present: oriented to time, oriented to person, oriented to place, speech is normal, memory intact Assessment and Plan (1) Diabetic ketoacidosis This will be taken care of by hospitalist Status: Acute (2) Sepsis To be cared for by hospitalist Status: Acute (3) Diabetes mellitus type 2, uncontrolled Status: Chronic (4) Primary chronic pseudo-obstruction of small intestine Nasogastric decompression. 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
[2020-02-22] MEDS: ACETAMINOPHEN 650 MG/65 ML BOTTLE IV PRN (17:50)
[2020-02-22] MEDS ORDERED: HYDROCORTISONE SOD SUCC 100 MG VIAL IV SCH (21:00)
[2020-02-22] MEDS: INSULIN GLARGINE, HUMAN 1 UNIT/0.01 ML SQ SCH (21:40)
[2020-02-22] MEDS: HYDROCORTISONE SOD SUCC 100 MG VIAL IV SCH (21:42)
[2020-02-22] MEDS: DIAZEPAM 10 MG/2 ML SYRINGE IV PRN (21:44)
[2020-02-23] MEDS: PIPERACILLIN SODIUM/TAZOBACTAM 3.375 GM in DEXTROSE 5% IN WATER 50 ML IV SCH ×4 (00:10→18:04)
[2020-02-23] MEDS: PYRIDOSTIGMINE BROMIDE 10 MG/2 ML ML IM SCH ×4 (00:10→18:05)
[2020-02-23] MEDS: HYDROmorphone 0.5 MG/0.5 ML SYRINGE IV PRN ×9 (00:25→22:26)
[2020-02-23] MEDS: 0.9 % SODIUM CHLORIDE 1,000 ML IV SCH ×2 (05:41→20:16)
[2020-02-23] MEDS: 0.9 % SODIUM CHLORIDE 10 ML SYRINGE IV SCH ×3 (06:25→20:29)
[2020-02-23 06:49] LABS: Hematocrit 33.3 % (34.1-44.9); Hemoglobin 10.7 g/dL (11.2-15.7); Mean Cell Volume 86.3 fL (80.0-100.0); Mean Corpuscular HGB Conc 32.1 g/dL (31.0-36.0); Mean Platelet Volume 10.2 fL (7.4-10.4); Platelet Count 258 K/mcL (140-440); RBC 3.86 M/mcL (3.59-5.38); Red Cell Distribution Width 15.5 % (11.5-14.5); WBC 7.3 K/mcL (4.50-11.00)
[2020-02-23 07:14] LABS: ALT/SGPT 18 U/l (0-40); AST/SGOT 14 U/l (0-37); Albumin/Globulin Ratio 1.2 (1.0-2.3); Alkaline Phosphatase 81 U/L (39-117); Bilirubin,Direct < 0.2 mg/dL (0.0-0.3); Bilirubin,Total 0.4 mg/dL (0.0-1.0); Calcium 6.3 mg/dl (8.6-10.4); Carbon Dioxide 23 mmol/L (22-30); Globulin 2.5 gm/dL (2.2-3.7); Glucose 131 mg/dL (70-105); Lactate Dehydrogenase 267 U/L (94-250); Phosphorous 4.4 mg/dL (2.7-4.5); Triglycerides 297 mg/dl (<150)
[2020-02-23 07:17] LABS: Blood Urea Nitrogen 23 mg/dl (6-20); Chloride 95 mmol/L (96-108); Glomerular Filtration Rate 50; Uric Acid 4.6 mg/dL (2.5-8.0)
[2020-02-23] MEDS: INSULIN LISPRO 1 UNIT/0.01 ML UNIT SQ SCH ×4 (07:27→20:28)
[2020-02-23 07:29] LABS: Anisocytosis FEW (NONE SEEN); Band Neutrophils % 1 % (0-10); Lymphocytes % 11 % (15-49); Monocytes % (Manual) 7 % (1-12); Platelet Estimate NORMAL (NORMAL); RBC Morphology ABNORM (NORMAL); Reactive Lymphocytes 1 % (0-2); Segmented Neutrophils % 80 % (38-78)
--- NOTE | 2020-02-23 08:25 | XRay Report ---
CLINICAL INFORMATION: NGT placement COMPARISON: 02/15/2020 FINDINGS: NG to tip overlies the gastric fundus. The stomach and multiple loops of small bowel are moderately dilated compatible recurrent distal small bowel obstruction. No free air. IMPRESSION: High-grade recurrent distal small bowel obstruction. NG tube overlies the gastric fundus. Suggest advancing the tube 10 cm Interpreted and Authenticated by: All Lundberg 02/23/20
--- NOTE | 2020-02-23 09:44 | Internal Med Progress Note ---
Medical - PN: Subj Patient information: Note initiated : 02/23/20 at 9:39 am Service Date, if different from initiated Date: [] Patient: Dayanna Guo a 59 y/o F admitted on 02/22/20 for nausea and vomiting. Chief Complaint: [] Interval history: Ms. 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 Following failed conservative management she underwent exploratory laparotomy with adhesion lysis on February 06. She was thereafter discharged in stable state however she noticed recurrence of symptoms and presented on February 19 with nausea vomiting and abdominal pain.fo llowing initial treatment with antiemetics and fluids she felt better and was discharged home. Symptoms thereafter continued to worsen with increasing abdominal distention, pain, loss of appetite and severe dehydration over the next 48 hours prompting her to present to the ER again. Initial work-up was consistent with acute renal failure/sinus tachycardia/hypertension elevated white count consistent with severe sepsis syndrome, endorgan dysfunction. Surgery was consulted. CT abdomen pelvis was ordered. Hospital service was consulted for management of medical issues while patient readmitted by surgery in light of postoperative symptoms requiring further evaluation. Patient was empirically started on Zosyn vancomycin and Levaquin after cultures were drawn. Tachycardia improved following administration of 2 L of crystalloids from 140s to 110 At the time of evaluation patient is alert and oriented. She was able to answer most of the questions endorse history as above. She endorses drenching sweats. She appears quite anxious and distressed. She denies headache photophobia, myalgia. She denies changes in her medications or diet. 02/22-patient clinically improved. NG tube decompression ongoing. Ongoing management per surgery. White count down from 15.5-7.3. Sodium improved from 1 27-1 33. Creatinine down from 2.1-1.2. Magnesium 1.3 on replacement. Blood sugars at goal. Urine WBC 18. On antibiotic coverage. - Constitutional Vitals: Vital Signs Temp Pulse Resp BP Pulse Ox 98.7 F 99 H 24 H 118/71 95 02/23/20 00:01 02/23/20 00:26 02/23/20 00:01 02/23/20 00:01 05/12/20 00:26 Period Temp Pulse Resp BP Sys/Archuleta Pulse Ox Last 24 Hr 96.8 F-100.2 F 94-126 2-24 70-135/52-95 90-100 Intake and Output 02/22/20 02/23/20 02/23/20 21:59 05:59 13:59 Intake Total 1635 1050 50 Output Total 1690 1875 210 Balance -55 -825 -160 Weight 206 lb 11.2 oz Intake & Output: Intake & Output 02/22/20 02/23/20 02/23/20 21:59 05:59 13:59 Intake Total 1635 1050 50 Output Total 1690 1875 210 Balance -55 -825 -160 Weight 206 lb 11.2 oz Intake: IV 1635 1050 50 Sodium Chloride 0.9% 1,000 ml @ 920 1000 100 mls/hr IV .Q10H MALENA Rx#: [id number] Zosyn 3.375 gm In Dextrose 5% 50 50 50 in Water 50 ml @ 100 mls/hr IV Q6H [facility]ENA Rx#:[id number] Vancomycin 1,500 mg In Sodium 500 Chloride 0.9% 500 ml @ 333.3 mls/hr IV Q24H MALENA Rx#: [id number] Tube Feeding 0 0 Output: Gastric Drainage 550 800 Right Nare 550 800 Urine Catheter Amount 415 825 60 Stool 725 250 150 Other: Urine Appearance Clear Clear Clear Urine Color Dark Yellow Dark Yellow Dark Yellow Uretheral (Martinez) Dark Yellow Dark Yellow Urine Odor Strong Stool Color Green Brown Stool Consistency Liquid Liquid General appearance: no acute distress Exam: Alert oriented NG tube decompression Nonlabored breathing Nondistended non-tender abdomen Medical - PN: Obj Da - Labs CBC & Chem 7: 02/23/20 05:10 02/23/20 05:10 Labs: Abnormal Lab Results 02/23/20 02/23/20 02/22/20 05:10 05:10 11:09 WBC Hgb 10.7 L Hct 33.3 L RDW 15.5 H Lymph % (Auto) Gran # [place] # (Auto) Seg Neutrophils % 80 H Lymphocytes % 11 L RBC Morphology Abnorm A Anisocytosis Few A VBG Lactic Acid Sodium Chloride 95 L Carbon Dioxide Anion Gap BUN 23 H Creatinine 1.2 H Glucose 131 H Calcium 6.3 L Magnesium 1.3 L GGT 40 H Lactate Dehydrogenase 267 H Total Protein 5.5 L Albumin 3.0 L Triglycerides 297 H Beta-Hydroxybutyrate Urine Protein 30 A Urine Glucose (UA) 50 A Urine Urobilinogen 2.0 A Ur Leukocyte Esterase 25 A Urine RBC 3 H Urine WBC 18 H Calcium Oxalate Crystal Many A Hyaline Casts 205 H Urine Mucus Many A 02/22/20 02/22/20 02/22/20 05:24 04:00 04:00 WBC Hgb Hct RDW Lymph % (Auto) Gran # [place] # (Auto) Seg Neutrophils % Lymphocytes % RBC Morphology Anisocytosis VBG Lactic Acid 3.7 H Sodium 127 L Chloride 83 L Carbon Dioxide 21 L Anion Gap 23.0 H BUN 34 H Creatinine 2.1 H Glucose 335 H Calcium 7.2 L Magnesium GGT Lactate Dehydrogenase Total Protein Albumin Triglycerides Beta-Hydroxybutyrate 0.53 H Urine Protein Urine Glucose (UA) Urine Urobilinogen Ur Leukocyte Esterase Urine RBC Urine WBC Calcium Oxalate Crystal Hyaline Casts Urine Mucus 02/22/20 04:00 WBC 15.5 H Hgb Hct RDW 15.3 H Lymph % (Auto) 13.3 L Gran # 11.94 H [place] # (Auto) 1.30 H Seg Neutrophils % Lymphocytes % RBC Morphology Anisocytosis VBG Lactic Acid Sodium Chloride Carbon Dioxide Anion Gap BUN Creatinine Glucose Calcium Magnesium GGT Lactate Dehydrogenase Total Protein Albumin Triglycerides Beta-Hydroxybutyrate Urine Protein Urine Glucose (UA) Urine Urobilinogen Ur Leukocyte Esterase Urine RBC Urine WBC Calcium Oxalate Crystal Hyaline Casts Urine Mucus Meds: Medications Acetaminophen (Tylenol) 650 mg PO Q4-6HP PRN; Protocol PRN Reason: Per Pain Protocol/Fever > 101 Dextrose (Dextrose 50%) 0 ml IV UD PRN PRN Reason: Hypoglycemia Diagnostic Test (Pha) (Accu-Chek) 1 each FS ACHS ON LICENSE OF [facility] Last Admin: 02/23/20 07:27 Dose: 1 each Documented by: Diazepam (Valium) 5 mg IV Q6-8HP PRN PRN Reason: Muscle Spasm Last Admin: 02/22/20 21:44 Dose: 5 mg Documented by: Glucose (Insta-Glucose) 15 gm PO PRN PRN PRN Reason: Hypoglycemia Heparin Sodium (Porcine) (Heparin) 5,000 unit SQ Q12 ON LICENSE OF [facility] Last Admin: 02/22/20 21:41 Dose: 5,000 unit Documented by: Hydrocortisone Sodium Succinate (Solu-Cortef) 50 mg IV Q12 ON LICENSE OF [facility] Last Admin: 02/22/20 21:42 Dose: 50 mg Documented by: Hydromorphone HCl (Dilaudid) 0.5 mg IV Q2HP PRN; Protocol PRN Reason: Per Pain Protocol Last Admin: 02/23/20 06:24 Dose: 0.5 mg Documented by: Sodium Chloride (Sodium Chloride 0.9%) 1,000 mls @ 100 mls/hr IV .Q10H [facility] Last Admin: 02/23/20 05:41 Dose: 100 mls/hr Documented by: Acetaminophen (Ofirmev) 650 mg in 65 mls @ 130 mls/hr IV Q6HP PRN; Protocol PRN Reason: Per Pain Protocol/Fever > 101 Last Infusion: 02/22/20 18:20 Dose: Infused Documented by: Potassium Chloride 40 meq/ (Dextrose) 520 mls @ 130 mls/hr IV UD PRN PRN Reason: K+ = or < 3.5 Magnesium Sulfate (Magnesium Sulfate) 2 gm in 50 mls @ 50 mls/hr IV UD PRN PRN Reason: MG = or < 1.7 Last Admin: 02/23/20 07:55 Dose: 50 mls/hr Documented by: Levofloxacin (Levaquin) 750 mg in 150 mls @ 100 mls/hr IV Q48H [facility]; Protocol Piperacillin Sod/Tazobactam (Sod 3.375 gm/ Dextrose) 50 mls @ 100 mls/hr IV Q6H [facility]; Protocol Last Infusion: 02/23/20 06:13 Dose: Infused Documented by: Vancomycin HCl 1,500 mg/ (Sodium Chloride) 500 mls @ 333.3 mls/hr IV Q24H ON LICENSE OF [facility] Last Infusion: 02/22/20 14:16 Dose: Infused Documented by: Insulin Glargine (Lantus) 5 unit SQ BID ON LICENSE OF [facility] Last Admin: 02/22/20 21:40 Dose: Not Given Documented by: Insulin Human Lispro (Humalog) 0 unit SQ ACHS ON LICENSE OF [facility]; Protocol Last Admin: 02/23/20 07:27 Dose: Not Given Documented by: Ondansetron HCl (Zofran Odt) 4 mg SL Q4-6HP PRN; Protocol PRN Reason: Nausea And Vomiting Ondansetron HCl (Zofran) 4 mg IV Q4-6HP PRN; Protocol PRN Reason: Nausea And Vomiting Last Admin: 02/22/20 19:11 Dose: 4 mg Documented by: Pyridostigmine Leonardo (Regonol) 10 mg IM Q6H ON LICENSE OF [facility] Last Admin: 02/23/20 05:43 Dose: 10 mg Documented by: Sodium Chloride (Saline Flush) 10 ml IV Q8 ON LICENSE OF [facility] Last Admin: 02/23/20 06:25 Dose: Not Given Documented by: Vancomycin HCl (Vancomycin Per Pharmacy) 1 order IV UD ON LICENSE OF [facility]; Protocol Medical - PN: A/P - Time Spent With Patient Total time spent is greater than 50% in coordination of care (as documented) at patient's floor/unit and/or counseling patient: 25 - 35 minutes (1) Severe sepsis Status: Acute Assessment and plan: * Acute bowel obstruction on confirmed imaging. Recent intestinal ob struction/post exploratory laparotomy. Managed by surgery. On NG decompression/conservative management Hospitalist consult for management of medical issues as below * Acute renal failure secondary to sepsis. Creatinine down from 2.1-1.2 following aggressive crystalloid administration. * DM type II poorly controlled. Blood sugars at goal on basal prandial insulin * Hypothyroidism held oral thyroxine * anxiety disorder use as needed IV benzodiazepine. * History of hypocalcemia secondary to hypoparathyroidism. IV calcium as indicated * History of panhypopituitarism-IV thyroxine as indicated * History of myasthenia gravis will start IV pyridostigmine/hydrocortisone * Morbid obesity BMI over 40 -continue frequent turning/nutrition support/decubitus precautions * History of obstructive sleep apnea not on CPAP due to increased air insufflation causing abdominal discomfort * Neuropathy on gabapentin at home. Hold until able to take p.o. * Full code * Prophylax Heparin Plan * Bowel obstruction management per surgery * IV hydrocortisone * Monitor renal function * Antibiotics and de-escalate based on cultures * PT OT Current Visit: Yes Medical - PN: Qual - VTE Deep Vein Thrombosis/Pulmonary Embolism Present on Admission: No
[2020-02-23] MEDS ORDERED: POTASSIUM CHLORIDE 40 MEQ in DEXTROSE 5% IN WATER 500 ML IV PRN (09:45)
[2020-02-23] MEDS: HYDROCORTISONE SOD SUCC 100 MG VIAL IV SCH ×2 (09:46→20:17)
[2020-02-23] MEDS: HEPARIN 5,000 UNIT/ML VIAL SQ SCH ×2 (09:46→20:16)
[2020-02-23] MEDS: INSULIN GLARGINE, HUMAN 1 UNIT/0.01 ML SQ SCH ×2 (09:47→20:29)
[2020-02-23] MEDS: VANCOMYCIN 1,500 MG in 0.9 % SODIUM CHLORIDE 500 ML IV SCH (10:04)
[2020-02-23] MEDS ORDERED: TPN PER PHARMACY IV SCH (14:21)
--- NOTE | 2020-02-23 14:30 | General Surgery Progress Note ---
Subjective Patient reports: feels better, pain is less, flatus, bowel movement, afebrile Narrative: Note initiated : 02/23/20 at 2:28 pm Service Date, if different from initiated Date: [] Patient: Dayanna Guo 59 y/o F admitted on 02/22/20 for nausea and vomiting. Chief Complaint: [patient states that she feels better. She continues to have output through her stoma though it is less than yesterday. Her nausea is significantly improved. Abdominal x-rays reveal continued distention of her bowel. She has put out some fragments of meat that she ate before going home. White blood count 7.3, hemoglobin 10.7, hematocrit 33.3 BUN 23, creatinine 1.2, magnesium 1.] Objective Temp Pulse Resp BP Pulse Ox 96.5 F L 77 20 112/66 93 02/23/20 12:00 02/23/20 12:00 02/23/20 12:00 02/23/20 12:00 02/23/20 12:00 - Additional Data Intake & Output - Last 24 hours: Intake & Output 02/21/20 02/22/20 02/23/20 02/24/20 05:59 05:59 05:59 05:59 Intake Total 1999 3885 100 Output Total 3590 210 Balance 1999 295 -110 Weight 202 lb 206 lb 11.2 oz 206 lb 11.2 oz - General physical appearance well developed, well nourished, no distress, chronically ill - Eyes PERRL, normal ocular movement - ENT normal pinna, normal nares, normal mucosa, no hearing loss, no congestion - Neck no masses, no bruits, trachea midline, no lymphadenopathy, no venous distension - Respiratory normal expansion, normal respiratory effort, clear to auscultation - Cardiovascular Cardiovascular exam: Present: normal rate and rhythm, +S1, +S2, tachycardia - Abdomen tender (mild tenderness in mid abdomen), distended (. Moderate distention of the upper abdomen with active bowel sounds) - Neurologic normal coordination, normal sensation - Musculoskeletal normal gait, normal posture - Psychiatric oriented to time, oriented to person, oriented to place, speech is normal, memory intact - Labs 02/23/20 05:10 02/23/20 05:10 Diabetes panel 02/23/20 Range/Units 05:10 Sodium 133 (133-145) mmol/L Potassium 3.9 (3.3-5.1) mmol/L Chloride 95 L (96-108) mmol/L Carbon Dioxide 23 (22-30) mmol/L BUN 23 H (6-20) mg/dl Creatinine 1.2 H (0.6-1.1) mg/dl Glucose 131 H (70-105) mg/dL Calcium 6.3 L (8.6-10.4) mg/dl AST 14 (0-37) U/l ALT 18 (0-40) U/l Alkaline Phosphatase 81 (39-117) U/L Total Protein 5.5 L (5.9-8.4) gm/dL Albumin 3.0 L (3.2-5.2) gm/dL Triglycerides 297 H (<150) mg/dl Calcium panel 02/23/20 Range/Units 05:10 Calcium 6.3 L (8.6-10.4) mg/dl Phosphorus 4.4 (2.7-4.5) mg/dL Albumin 3.0 L (3.2-5.2) gm/dL Pituitary panel 02/23/20 Range/Units 05:10 Sodium 133 (133-145) mmol/L Potassium 3.9 (3.3-5.1) mmol/L Chloride 95 L (96-108) mmol/L Carbon Dioxide 23 (22-30) mmol/L BUN 23 H (6-20) mg/dl Creatinine 1.2 H (0.6-1.1) mg/dl Glucose 131 H (70-105) mg/dL Calcium 6.3 L (8.6-10.4) mg/dl Adrenal panel 02/23/20 Range/Units 05:10 Sodium 133 (133-145) mmol/L Potassium 3.9 (3.3-5.1) mmol/L Chloride 95 L (96-108) mmol/L Carbon Dioxide 23 (22-30) mmol/L BUN 23 H (6-20) mg/dl Creatinine 1.2 H (0.6-1.1) mg/dl Glucose 131 H (70-105) mg/dL Calcium 6.3 L (8.6-10.4) mg/dl Total Bilirubin 0.4 (0.0-1.0) mg/dL AST 14 (0-37) U/l ALT 18 (0-40) U/l Alkaline Phosphatase 81 (39-117) U/L Total Protein 5.5 L (5.9-8.4) gm/dL Albumin 3.0 L (3.2-5.2) gm/dL Assessment and Plan (1) Diabetic ketoacidosis Status: Acute Current Visit: Yes (2) Sepsis Status: Acute Current Visit: Yes (3) Diabetes mellitus type 2, uncontrolled Status: Chronic Current Visit: Yes (4) Primary chronic pseudo-obstruction of small intestine Status: Acute Assessment and plan: clinically improved We'll give milk of magnesia every 3 hours 3 doses with plans for small bowel follow-through tomorrow Current Visit: No (5) Hypertension Status: Chronic Current Visit: No (6) Myasthenia gravis Status: Chronic Current Visit: No (7) LA (obstructive sleep apnea) Status: Chronic Current Visit: No (8) Polyglandular autoimmune syndrome Status: Chronic Current Visit: No (9) Recurrent intestinal obstruction Problem details: many recurrences; many surgical interventions Status: Chronic Current Visit: No - Time Spent With Patient Total time spent is greater than 50% in coordination of care (as documented) at patient's floor/unit and/or counseling patient:
[2020-02-23] MEDS ORDERED: LACTULOSE 20 GM/30 ML ORAL.SOL PO PRN ×2 (14:57→15:05)
[2020-02-23] MEDS ORDERED: ONDANSETRON 4 MG/2 ML VIAL IV PRN (14:57)
[2020-02-23] MEDS: CALCIUM GLUCONATE 9.3 MEQ in DEXTROSE 5% IN WATER 50 ML IV SCH (15:04)
[2020-02-23] MEDS: MAGNESIUM HYDROXIDE 30 ML ORAL.SUSP PO SCH ×3 (15:51→20:16)
[2020-02-23] MEDS ORDERED: [UNRECOGNIZED DRUG - OTHER] IV SCH (16:00)
[2020-02-23] MEDS ORDERED: CALCIUM GLUCONATE IV SCH (16:00)
[2020-02-23] MEDS ORDERED: MAGNESIUM SULFATE IV SCH (16:00)
[2020-02-23] MEDS ORDERED: SODIUM CHLORIDE IV SCH (16:00)
[2020-02-23] MEDS: DOCUSATE SODIUM 100 MG CAPSULE PO SCH (20:17)
[2020-02-23] MEDS: ACETAMINOPHEN 650 MG/65 ML BOTTLE IV PRN (20:17)
[2020-02-23] MEDS ORDERED: SENNOSIDES 1 TABLET PO PRN (21:00)
[2020-02-23] MEDS ORDERED: 0.9 % SODIUM CHLORIDE 10 ML SYRINGE IV SCH (22:00)
[2020-02-24] MEDS: PYRIDOSTIGMINE BROMIDE 10 MG/2 ML ML IM SCH ×4 (00:09→18:17)
[2020-02-24] MEDS: PIPERACILLIN SODIUM/TAZOBACTAM 3.375 GM in DEXTROSE 5% IN WATER 50 ML IV SCH ×4 (00:10→18:17)
[2020-02-24] MEDS: DIAZEPAM 10 MG/2 ML SYRINGE IV PRN (00:10)
[2020-02-24] MEDS: HYDROmorphone 0.5 MG/0.5 ML SYRINGE IV PRN ×10 (00:10→22:45)
[2020-02-24] MEDS: 0.9 % SODIUM CHLORIDE 1,000 ML IV SCH ×4 (01:32→23:30)
[2020-02-24] MEDS: ACETAMINOPHEN 650 MG/65 ML BOTTLE IV PRN (02:47)
[2020-02-24] MEDS: 0.9 % SODIUM CHLORIDE 10 ML SYRINGE IV SCH ×3 (05:11→20:58)
[2020-02-24 07:01] LABS: Hematocrit 27.9 % (34.1-44.9); Hemoglobin 8.9 g/dL (11.2-15.7); Mean Cell Volume 87.5 fL (80.0-100.0); Mean Corpuscular HGB Conc 31.9 g/dL (31.0-36.0); Mean Platelet Volume 9.9 fL (7.4-10.4); Platelet Count 254 K/mcL (140-440); RBC 3.19 M/mcL (3.59-5.38); Red Cell Distribution Width 15.4 % (11.5-14.5); WBC 4.4 K/mcL (4.50-11.00)
[2020-02-24] MEDS: INSULIN LISPRO 1 UNIT/0.01 ML UNIT SQ SCH ×4 (07:22→21:15)
[2020-02-24 08:11] LABS: Lymphocytes % 18 % (15-49); Monocytes % (Manual) 11 % (1-12); Platelet Estimate NORMAL (NORMAL); RBC Morphology NORMAL (NORMAL); Segmented Neutrophils % 71 % (38-78)
[2020-02-24 08:17] LABS: ALT/SGPT 11 U/l (0-40); AST/SGOT 9 U/l (0-37); Albumin 2.4 gm/dL (3.2-5.2); Albumin/Globulin Ratio 1.1 (1.0-2.3); Alkaline Phosphatase 59 U/L (39-117); Bilirubin,Direct < 0.2 mg/dL (0.0-0.3); Bilirubin,Total < 0.2 mg/dL (0.0-1.0); Calcium 6.1 mg/dl (8.6-10.4); Carbon Dioxide 23 mmol/L (22-30); Chloride 98 mmol/L (96-108); Globulin 2.2 gm/dL (2.2-3.7); Glucose 170 mg/dL (70-105); Lactate Dehydrogenase 235 U/L (94-250); Phosphorous 3.3 mg/dL (2.7-4.5); Triglycerides 276 mg/dl (<150)
[2020-02-24 08:23] LABS: Blood Urea Nitrogen 12 mg/dl (6-20); Glomerular Filtration Rate 100
[2020-02-24] MEDS ORDERED: LEVOFLOXACIN 750 MG/150 ML BAG IV SCH (09:00)
[2020-02-24] MEDS: HEPARIN 5,000 UNIT/ML VIAL SQ SCH ×2 (09:38→20:54)
[2020-02-24] MEDS: DOCUSATE SODIUM 100 MG CAPSULE PO SCH ×2 (09:38→21:15)
[2020-02-24] MEDS: CALCIUM GLUCONATE 9.3 MEQ in DEXTROSE 5% IN WATER 50 ML IV SCH (09:38)
[2020-02-24] MEDS: INSULIN GLARGINE, HUMAN 1 UNIT/0.01 ML SQ SCH ×2 (09:39→21:21)
[2020-02-24] MEDS: HYDROCORTISONE SOD SUCC 100 MG VIAL IV SCH ×2 (09:40→20:54)
--- NOTE | 2020-02-24 09:43 | Internal Med Progress Note ---
Medical - PN: Subj Patient information: Note initiated : 02/24/20 at 9:40 am Service Date, if different from initiated Date: [] Patient: Dayanna Guo a 59 y/o F admitted on 02/22/20 for nausea and vomiting. Chief Complaint: [] Interval history: Ms. 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 Following failed conservative management she underwent exploratory laparotomy with adhesion lysis on February 06. She was thereafter discharged in stable state however she noticed recurrence of symptoms and presented on February 19 with nausea vomiting and abdominal pain.fo llowing initial treatment with antiemetics and fluids she felt better and was discharged home. Symptoms thereafter continued to worsen with increasing abdominal distention, pain, loss of appetite and severe dehydration over the next 48 hours prompting her to present to the ER again. Initial work-up was consistent with acute renal failure/sinus tachycardia/hypertension elevated white count consistent with severe sepsis syndrome, endorgan dysfunction. Surgery was consulted. CT abdomen pelvis was ordered. Hospital service was consulted for management of medical issues while patient readmitted by surgery in light of postoperative symptoms requiring further evaluation. Patient was empirically started on Zosyn vancomycin and Levaquin after cultures were drawn. Tachycardia improved following administration of 2 L of crystalloids from 140s to 110 At the time of evaluation patient is alert and oriented. She was able to answer most of the questions endorse history as above. She endorses drenching sweats. She appears quite anxious and distressed. She denies headache photophobia, myalgia. She denies changes in her medications or diet. 02/22-patient clinically improved. NG tube decompression ongoing. Ongoing management per surgery. White count down from 15.5-7.3. Sodium improved from 1 27-1 33. Creatinine down from 2.1-1.2. Magnesium 1.3 on replacement. Blood sugars at goal. Urine WBC 18. On antibiotic coverage. 02/23-renal function normalized. White count normalized. NG-tube decompression ongoing. Sodium improved to 137. Potassium at 3 on replacement. Magnesium improved 1.8. Creatinine down to 0.6 from 2.1. Urine cultures negative so far 02/24-clinically improved. NG tube decompression. On parenteral nutrition. Electrolytes improved potassium at 3.2. Calcium is 6.9 on replacement. Continue Abx. Continue management per surgery. Hold oral medications until approved by surgery - Constitutional Vitals: Vital Signs Temp Pulse Resp BP Pulse Ox 97.6 F 80 16 115/67 92 02/24/20 08:00 02/24/20 08:00 02/24/20 08:00 02/24/20 08:00 02/24/20 08:00 Period Temp Pulse Resp BP Sys/Archuleta Pulse Ox Last 24 Hr 96.5 F-98.6 F 64-100 16- 111-147/64-87 91-97 Intake and Output 02/23/20 02/24/20 02/24/20 21:59 05:59 13:59 Intake Total 1440 180 50 Output Total 1040 2700 Balance 400 -2520 50 Weight 198 lb 11.2 oz Intake & Output: Intake & Output 02/23/20 02/24/20 02/24/20 21:59 05:59 13:59 Intake Total 1440 180 50 Output Total 1040 2700 Balance 400 -2520 50 Weight 198 lb 11.2 oz Intake: IV 1120 180 50 Sodium Chloride 0.9% 1,000 ml @ 1000 100 mls/hr IV .Q10H [facility] Rx#: [id number] Calcium Gluconate 9.3 Meq In 70 Dextrose 5% in Water 50 ml @ 141.505 mls/hr IV DAILY [facility] Rx# :[id number] Calcium Gluconate 4.65 Meq 0 Magnesium Sulfate 16.24 Meq Sodium Chloride 40 Meq Potassium Chloride 20 Meq Infuvite Adult 10 ml In Clinimix 5%-20% Solution 1,000 ml @ 20 mls/hr IV Q24H [facility] Rx#: [id number] Zosyn 3.375 gm In Dextrose 5% 50 50 50 in Water 50 ml @ 100 mls/hr IV Q6H [facility] Rx#:[id number] Oral 320 Output: Gastric Drainage 2150 Right Nare 2150 Urine Catheter Amount 240 Void Amount 350 475 Stool 450 75 Other: Urine Appearance Sediment Clear Urine Color Bright Yellow Uretheral (Martinez) Dark Yellow Urine Odor Normal Stool Color Brown Stool Consistency Liquid General appearance: no acute distress Exam: Morbidly obese Alert oriented NG decompression Nonlabored breathing Ostomy drainage noted Medical - PN: Obj Da - Labs CBC & Chem 7: 02/25/20 06:40 02/25/20 06:40 Labs: Abnormal Lab Results 02/24/20 02/24/20 02/23/20 05:15 05:15 05:10 WBC 4.4 L RBC 3.19 L Hgb 8.9 L Hct 27.9 L RDW 15.4 H Lymph % (Auto) Gran # [place] # (Auto) Seg Neutrophils % Lymphocytes % RBC Morphology Anisocytosis VBG Lactic Acid Sodium Potassium 3.0 L Chloride 95 L Carbon Dioxide Anion Gap BUN 23 H Creatinine 1.2 H Glucose 170 H 131 H Calcium 6.1 L 6.3 L Magnesium 1.3 L GGT 40 H Lactate Dehydrogenase 267 H Total Protein 4.6 L 5.5 L Albumin 2.4 L 3.0 L Triglycerides 276 H 297 H Beta-Hydroxybutyrate Urine Protein Urine Glucose (UA) Urine Urobilinogen Ur Leukocyte Esterase Urine RBC Urine WBC Calcium Oxalate Crystal Hyaline Casts Urine Mucus 02/23/20 02/22/20 02/22/20 05:10 11:09 05:24 WBC RBC Hgb 10.7 L Hct 33.3 L RDW 15.5 H Lymph % (Auto) Gran # [place] # (Auto) Seg Neutrophils % 80 H Lymphocytes % 11 L RBC Morphology Abnorm A Anisocytosis Few A VBG Lactic Acid 3.7 H Sodium Potassium Chloride Carbon Dioxide Anion Gap BUN Creatinine Glucose Calcium Magnesium GGT Lactate Dehydrogenase Total Protein Albumin Triglycerides Beta-Hydroxybutyrate Urine Protein 30 A Urine Glucose (UA) 50 A Urine Urobilinogen 2.0 A Ur Leukocyte Esterase 25 A Urine RBC 3 H Urine WBC 18 H Calcium Oxalate Crystal Many A Hyaline Casts 205 H Urine Mucus Many A 02/22/20 02/22/20 02/22/20 04:00 04:00 04:00 WBC 15.5 H RBC Hgb Hct RDW 15.3 H Lymph % (Auto) 13.3 L Gran # 11.94 H [place] # (Auto) 1.30 H Seg Neutrophils % Lymphocytes % RBC Morphology Anisocytosis VBG Lactic Acid Sodium 127 L Potassium Chloride 83 L Carbon Dioxide 21 L Anion Gap 23.0 H BUN 34 H Creatinine 2.1 H Glucose 335 H Calcium 7.2 L Magnesium GGT Lactate Dehydrogenase Total Protein Albumin Triglycerides Beta-Hydroxybutyrate 0.53 H Urine Protein Urine Glucose (UA) Urine Urobilinogen Ur Leukocyte Esterase Urine RBC Urine WBC Calcium Oxalate Crystal Hyaline Casts Urine Mucus Meds: Medications Acetaminophen (Tylenol) 650 mg PO Q4-6HP PRN; Protocol PRN Reason: Per Pain Protocol/Fever > 101 Dextrose (Dextrose 50%) 0 ml IV UD PRN PRN Reason: Hypoglycemia Diagnostic Test (Pha) (Accu-Chek) 1 each FS ACHS [facility] Last Admin: 02/24/20 07:13 Dose: 1 each Documented by: Diazepam (Valium) 5 mg IV Q6-8HP PRN PRN Reason: Muscle Spasm Last Admin: 02/24/20 00:10 Dose: 5 mg Documented by: Docusate Sodium (Colace) 100 mg PO BID [facility] Last Admin: 02/24/20 09:38 Dose: Not Given Documented by: Glucose (Insta-Glucose) 15 gm PO PRN PRN PRN Reason: Hypoglycemia Heparin Sodium (Porcine) (Heparin) 5,000 unit SQ Q12 [facility] Last Admin: 02/24/20 09:38 Dose: 5,000 unit Documented by: Hydrocortisone Sodium Succinate (Solu-Cortef) 50 mg IV Q12 [facility] Last Admin: 02/23/20 20:17 Dose: 50 mg Documented by: Hydromorphone HCl (Dilaudid) 0.5 mg IV Q2HP PRN; Protocol PRN Reason: Per Pain Protocol Last Admin: 02/24/20 09:37 Dose: 0.5 mg Documented by: Sodium Chloride (Sodium Chloride 0.9%) 1,000 mls @ 100 mls/hr IV .Q10H [facility] Last Admin: 02/24/20 01:32 Dose: Not Given Documented by: Acetaminophen (Ofirmev) 650 mg in 65 mls @ 130 mls/hr IV Q6HP PRN; Protocol PRN Reason: Per Pain Protocol/Fever > 101 Last Infusion: 02/24/20 03:27 Dose: Infused Documented by: Potassium Chloride 40 meq/ (Dextrose) 520 mls @ 130 mls/hr IV UD PRN PRN Reason: K+ = or < 3.5 Magnesium Sulfate (Magnesium Sulfate) 2 gm in 50 mls @ 50 mls/hr IV UD PRN PRN Reason: MG = or < 1.7 Last Infusion: 02/23/20 08:55 Dose: Infused Documented by: Levofloxacin (Levaquin) 750 mg in 150 mls @ 100 mls/hr IV Q48H [facility]; Protocol Piperacillin Sod/Tazobactam (Sod 3.375 gm/ Dextrose) 50 mls @ 100 mls/hr IV Q6H [facility]; Protocol Last Infusion: 02/24/20 06:00 Dose: Infused Documented by: Vancomycin HCl 1,500 mg/ (Sodium Chloride) 500 mls @ 333.3 mls/hr IV Q24H [facility] Last Infusion: 02/23/20 11:35 Dose: Infused Documented by: Calcium Gluconate 9.3 meq/ (Dextrose) 70 mls @ 141.505 mls/hr IV DAILY [facility] Last Admin: 02/24/20 09:38 Dose: 141 mls/hr Documented by: Calcium Gluconate 4.65 meq/Magnesium Sulfate 16.24 meq/Sodium Chloride 40 meq/Potassium Chloride 20 meq/Multivitamins/Minerals 10 ml/Amino Acids 1,044 mls @ 20 mls/hr IV Q24H [facility] Stop: 02/24/20 15:59 Last Infusion: 02/23/20 16:23 Dose: 20 mls/hr Documented by: Calcium Gluconate 4.65 meq/Magnesium Sulfate 16.24 meq/Sodium Chloride 40 meq/Potassium Chloride 40 meq/Multivitamins/Minerals 10 ml/Potassium Phosphate 20 meq/Amino Acids 1,058.5455 mls @ 50 mls/hr IV Q21H [facility] Insulin Glargine (Lantus) 5 unit SQ BID [facility] Last Admin: 02/24/20 09:39 Dose: Not Given Documented by: Insulin Human Lispro (Humalog) 0 unit SQ ACHS [facility]; Protocol Last Admin: 02/24/20 07:22 Dose: 1 unit Documented by: Lactulose (Cephulac) 10 gm PO DAILYP PRN PRN Reason: Constipation Ondansetron HCl (Zofran Odt) 4 mg SL Q4-6HP PRN; Protocol PRN Reason: Nausea And Vomiting Ondansetron HCl (Zofran) 4 mg IV Q4-6HP PRN; Protocol PRN Reason: Nausea And Vomiting Last Admin: 02/22/20 19:11 Dose: 4 mg Documented by: Pyridostigmine Bernard (Regonol) 10 mg IM Q6H [facility] Last Admin: 02/24/20 05:11 Dose: 10 mg Documented by: Senna (Senokot) 2 tab PO HSP PRN PRN Reason: Constipation Sodium Chloride (Saline Flush) 10 ml IV Q8 [facility] Last Admin: 02/24/20 05:11 Dose: Not Given Documented by: Vancomycin HCl (Vancomycin Per Pharmacy) 1 order IV UD [facility]; Protocol Medical - PN: A/P - Time Spent With Patient Total time spent is greater than 50% in coordination of care (as documented) at patient's floor/unit and/or counseling patient: 25 - 35 minutes (1) Severe sepsis Status: Acute Assessment and plan: * Recurrent bowel obstruction following recent intestinal obstruction/post exploratory laparotomy. Managed by surgery. On NG decompression Hospitalist consult for management of medical issues as below * Acute renal failure secondary to sepsis. Resolved * Hypokalemia continue replacement * Hypocalcemia on replacement * Low magnesium 1.3 improved to 1.6 post * DM type II poorly controlled. Blood sugars at goal on basal prandial insulin * Hypothyroidism held oral thyroxine * anxiety disorder use as needed IV benzodiazepine. * History of panhypopituitarism * History of myasthenia gravis continue IV pyridostigmine/hydrocortisone * Morbid obesity BMI over 40 -continue frequent turning/nutrition support/decubitus precautions * History of obstructive sleep apnea not on CPAP due to increased air insufflation causing abdominal discomfort * Neuropathy on gabapentin at home. Hold until able to take p.o. * Full code * Prophylax Heparin Plan * Bowel obstruction management per surgery * IV hydrocortisone * DC antibiotics * Electrolyte replacement * TPN per surgery * PT OT Current Visit: Yes Medical - PN: Qual - VTE Deep Vein Thrombosis/Pulmonary Embolism Present on Admission: No
[2020-02-24] MEDS: VANCOMYCIN 1,500 MG in 0.9 % SODIUM CHLORIDE 500 ML IV SCH (11:36)
[2020-02-24] MEDS ORDERED: DIATRIZOATE MEGLU/DIATRIZO SOD 30 ML BOTTLE PO ONE (12:09)
--- NOTE | 2020-02-24 14:20 | XRay Report ---
CLINICAL INFORMATION: Follow-up with small bowel obstruction COMPARISON: Abdomen and pelvic CT 02/22/2020. TECHNIQUE: Following all terrain vehicle technician imaging, water-soluble contrast was infused through the indwelling NG catheter which was satisfactory position in the gastric body. Serial imaging over the abdomen and pelvis was then obtained or three hours and 15 minutes. Fluoroscopy was also performed by the radiologist of dilated distal small bowel loops: total fluoroscopy time five seconds. FINDINGS: The stomach, duodenum and jejunum are moderately dilated. Stricture or adhesions of the distal small bowel in the right lower quadrant results in moderate grade partial small bowel obstruction. The distal small bowel caliber, all the way to the ileostomy in the right lower quadrant, is decreased. Small bowel transit time is delayed: approximately three hours. IMPRESSION: Adhesions or stricture of the distal small bowel (right lower quadrant) resulting in moderate grade partial small bowel obstruction. Interpreted and Authenticated by: All Lundberg 02/24/20
[2020-02-24] MEDS: POTASSIUM CHLORIDE 40 MEQ in DEXTROSE 5% IN WATER 500 ML IV PRN (15:02)
--- NOTE | 2020-02-24 15:10 | General Surgery Progress Note ---
Subjective Patient reports: feels better, pain is less, flatus, bowel movement, diarrhea, afebrile Narrative: Note initiated : 02/24/20 at 3:08 pm Service Date, if different from initiated Date: [] Patient: Dayanna Guo 59 y/o F admitted on 02/22/20 for nausea and vomiting. Chief Complaint: [patient is stable and improved. She has less nausea. She has good output through her stoma. Small bowel follow-through shows transit in about 3 hours. White blood count 4.4 hemoglobin 8.9 hematocrit 27.9, potassium 3, BUN 12 creatinine calcium 6.1.] Objective Temp Pulse Resp BP Pulse Ox 97.7 F 70 16 124/79 91 02/24/20 14:00 02/24/20 14:00 02/24/20 14:00 02/24/20 14:00 02/24/20 14:00 - Additional Data Intake & Output - Last 24 hours: Intake & Output 02/22/20 02/23/20 02/24/20 02/25/20 05:59 05:59 05:59 05:59 Intake Total 1999 3885 2270 1410 Output Total 3590 3950 1550 Balance 1999 295 -1680 -140 Weight 202 lb 206 lb 11.2 oz 198 lb 11.2 oz 198 lb 11.2 oz - General physical appearance well developed, well nourished, no distress - Eyes PERRL, normal ocular movement - ENT normal pinna, normal nares, normal mucosa, no hearing loss, no congestion - Neck no masses, no bruits, trachea midline, no lymphadenopathy, no venous distension - Respiratory normal expansion, normal respiratory effort, clear to auscultation - Cardiovascular Cardiovascular exam: Present: normal rate and rhythm, RRR, +S1, +S2. Absent: JVD, tachycardia - Abdomen soft, non tender, bowel sounds (. Good active bowel sounds), distended (mild distention and upper abdomen) - Integumentary no rash, no growths, no abnormal pigmentation - Neurologic normal coordination, normal sensation - Musculoskeletal normal gait, normal posture - Psychiatric oriented to time, oriented to person, oriented to place, speech is normal, vadim ry intact - Labs 02/24/20 05:15 02/24/20 05:15 Diabetes panel 02/24/20 Range/Units 05:15 Sodium 137 (133-145) mmol/L Potassium 3.0 L (3.3-5.1) mmol/L Chloride 98 (96-108) mmol/L Carbon Dioxide 23 (22-30) mmol/L BUN 12 (6-20) mg/dl Creatinine 0.6 (0.6-1.1) mg/dl Glucose 170 H (70-105) mg/dL Calcium 6.1 L (8.6-10.4) mg/dl AST 9 (0-37) U/l ALT 11 (0-40) U/l Alkaline Phosphatase 59 (39-117) U/L Total Protein 4.6 L (5.9-8.4) gm/dL Albumin 2.4 L (3.2-5.2) gm/dL Triglycerides 276 H (<150) mg/dl Calcium panel 02/24/20 Range/Units 05:15 Calcium 6.1 L (8.6-10.4) mg/dl Phosphorus 3.3 (2.7-4.5) mg/dL Albumin 2.4 L (3.2-5.2) gm/dL Pituitary panel 02/24/20 Range/Units 05:15 Sodium 137 (133-145) mmol/L Potassium 3.0 L (3.3-5.1) mmol/L Chloride 98 (96-108) mmol/L Carbon Dioxide 23 (22-30) mmol/L BUN 12 (6-20) mg/dl Creatinine 0.6 (0.6-1.1) mg/dl Glucose 170 H (70-105) mg/dL Calcium 6.1 L (8.6-10.4) mg/dl Adrenal panel 02/24/20 Range/Units 05:15 Sodium 137 (133-145) mmol/L Potassium 3.0 L (3.3-5.1) mmol/L Chloride 98 (96-108) mmol/L Carbon Dioxide 23 (22-30) mmol/L BUN 12 (6-20) mg/dl Creatinine 0.6 (0.6-1.1) mg/dl Glucose 170 H (70-105) mg/dL Calcium 6.1 L (8.6-10.4) mg/dl Total Bilirubin < 0.2 (0.0-1.0) mg/dL AST 9 (0-37) U/l ALT 11 (0-40) U/l Alkaline Phosphatase 59 (39-117) U/L Total Protein 4.6 L (5.9-8.4) gm/dL Albumin 2.4 L (3.2-5.2) gm/dL Assessment and Plan (1) Diabetic ketoacidosis Status: Acute Current Visit: Yes (2) Sepsis Status: Acute Current Visit: Yes (3) Diabetes mellitus type 2, uncontrolled Status: Chronic Current Visit: Yes (4) Primary chronic pseudo-obstruction of small intestine Status: Acute Assessment and plan: clinically improved Two-view abdominal x-ray in the morning Current Visit: No (5) Hypertension Status: Chronic Current Visit: No (6) Myasthenia gravis Status: Chronic Current Visit: No (7) LA (obstructive sleep apnea) Status: Chronic Current Visit: No (8) Polyglandular autoimmune syndrome Status: Chronic Current Visit: No (9) Recurrent intestinal obstruction Problem details: many recurrences; many surgical interventions Status: Chronic Current Visit: No - Time Spent With Patient Total time spent is greater than 50% in coordination of care (as documented) at patient's floor/unit and/or counseling patient:
[2020-02-24] MEDS ORDERED: FAT EMULSION 20% 250 ML IV SCH (16:00)
[2020-02-24] MEDS: MAGNESIUM SULFATE IV SCH (16:37)
[2020-02-24] MEDS: [UNRECOGNIZED DRUG - OTHER] IV SCH (16:37)
[2020-02-24] MEDS: CALCIUM GLUCONATE IV SCH (16:37)
[2020-02-24] MEDS: SODIUM CHLORIDE IV SCH (16:37)
[2020-02-25] MEDS: PIPERACILLIN SODIUM/TAZOBACTAM 3.375 GM in DEXTROSE 5% IN WATER 50 ML IV SCH ×2 (00:14→05:15)
[2020-02-25] MEDS: PYRIDOSTIGMINE BROMIDE 10 MG/2 ML ML IM SCH ×5 (00:15→23:58)
[2020-02-25] MEDS: DIAZEPAM 10 MG/2 ML SYRINGE IV PRN (00:15)
[2020-02-25] MEDS: HYDROmorphone 0.5 MG/0.5 ML SYRINGE IV PRN ×9 (02:12→23:06)
[2020-02-25] MEDS: ONDANSETRON 4 MG/2 ML VIAL IV PRN ×2 (02:24→13:35)
[2020-02-25] MEDS: 0.9 % SODIUM CHLORIDE 10 ML SYRINGE IV SCH ×3 (06:56→20:50)
[2020-02-25 07:34] LABS: Hemoglobin 10.3 g/dL (11.2-15.7); Mean Cell Volume 87.7 fL (80.0-100.0); Mean Corpuscular HGB Conc 32.2 g/dL (31.0-36.0); Mean Platelet Volume 9.6 fL (7.4-10.4); Platelet Count 291 K/mcL (140-440); RBC 3.65 M/mcL (3.59-5.38); Red Cell Distribution Width 15.3 % (11.5-14.5); WBC 4.9 K/mcL (4.50-11.00)
[2020-02-25] MEDS: HYDROCORTISONE SOD SUCC 100 MG VIAL IV SCH ×2 (08:03→20:47)
[2020-02-25] MEDS: 0.9 % SODIUM CHLORIDE 1,000 ML IV SCH ×3 (08:04→23:02)
[2020-02-25] MEDS: HEPARIN 5,000 UNIT/ML VIAL SQ SCH ×2 (08:05→20:46)
[2020-02-25] MEDS: DOCUSATE SODIUM 100 MG CAPSULE PO SCH ×2 (08:05→20:48)
[2020-02-25] MEDS: INSULIN LISPRO 1 UNIT/0.01 ML UNIT SQ SCH ×4 (08:34→21:05)
[2020-02-25] MEDS: CALCIUM GLUCONATE 9.3 MEQ in DEXTROSE 5% IN WATER 50 ML IV SCH (08:51)
[2020-02-25] MEDS: INSULIN GLARGINE, HUMAN 1 UNIT/0.01 ML SQ SCH ×2 (09:02→21:07)
[2020-02-25 09:03] LABS: Band Neutrophils % 1 % (0-10); Eosinophils % (Manual) 3 % (0-7); Lymphocytes % 30 % (15-49); Monocytes % (Manual) 8 % (1-12); Platelet Estimate NORMAL (NORMAL); RBC Morphology NORMAL (NORMAL); Segmented Neutrophils % 58 % (38-78)
[2020-02-25 09:22] LABS: ALT/SGPT 12 U/l (0-40); AST/SGOT 13 U/l (0-37); Albumin/Globulin Ratio 1.3 (1.0-2.3); Alkaline Phosphatase 63 U/L (39-117); Bilirubin,Direct < 0.2 mg/dL (0.0-0.3); Bilirubin,Total 0.2 mg/dL (0.0-1.0); Blood Urea Nitrogen 8 mg/dl (6-20); Calcium 6.9 mg/dl (8.6-10.4); Carbon Dioxide 28 mmol/L (22-30); Chloride 100 mmol/L (96-108); Globulin 2.4 gm/dL (2.2-3.7); Glomerular Filtration Rate 100; Glucose 184 mg/dL (70-105); Lactate Dehydrogenase 305 U/L (94-250); Phosphorous 2.8 mg/dL (2.7-4.5)
[2020-02-25 09:25] LABS: Triglycerides 338 mg/dl (<150); Uric Acid 1.6 mg/dL (2.5-8.0)
--- NOTE | 2020-02-25 09:45 | XRay Report ---
CLINICAL INFORMATION: FOLLOW -UP OF SMALL BOWEL OBSTRUCTION COMPARISON: Small bowel follow-through study 02/24/2020 FINDINGS: NG tube remains in stable satisfactory position with the tip in the gastric body. The stomach and upper small bowel loops are moderately decompressed following NG suction. Distal small bowel is decreased caliber IMPRESSION: Improving distal small bowel obstruction Interpreted and Authenticated by: All Lundberg 02/25/20
[2020-02-25] MEDS: VANCOMYCIN 1,500 MG in 0.9 % SODIUM CHLORIDE 500 ML IV SCH (10:16)
[2020-02-25] MEDS ORDERED: CALCIUM GLUCONATE 4.65 MEQ/10 ML VIAL IV PRN ×2 (10:33→14:42)
[2020-02-25] MEDS: [UNRECOGNIZED DRUG - OTHER] IV SCH (12:36)
[2020-02-25] MEDS: MAGNESIUM SULFATE IV SCH (12:36)
[2020-02-25] MEDS: SODIUM CHLORIDE IV SCH (12:36)
[2020-02-25] MEDS: CALCIUM GLUCONATE IV SCH (12:36)
--- NOTE | 2020-02-25 12:59 | General Surgery Progress Note ---
Subjective Patient reports: feels better, pain is less, flatus, diarrhea, afebrile Narrative: Note initiated : 02/25/20 at 12:57 pm Service Date, if different from initiated Date: [] Patient: Dayanna Guo 59 y/o F admitted on 02/22/20 for nausea and vomiting. Chief Complaint: [patient continues to do well. her nausea has resolved. She had over 1600 cc output through her stoma last evening. She does not have pain at this time. Abdomen is soft and flat. She has good active bowel sounds. White blood count 4.9 hemoglobin 10.3 hematocrit 32 potassium 3.2 calcium 6.9 magnesium 1.8 phosphorus 2.8.] Objective Temp Pulse Resp BP Pulse Ox 97.6 F 88 16 142/57 96 02/25/20 11:13 02/25/20 11:13 02/25/20 11:13 02/25/20 11:13 02/25/20 11:13 - Additional Data Intake & Output - Last 24 hours: Intake & Output 02/23/20 02/24/20 02/25/20 02/26/20 05:59 05:59 05:59 05:59 Intake Total 3885 2270 6425 858 Output Total 3590 3950 5950 Balance 295 -1680 475 858 Weight 206 lb 11.2 oz 198 lb 11.2 oz 202 lb - General physical appearance well developed, well nourished, no distress - Eyes PERRL, normal ocular movement - ENT normal pinna, normal nares, normal mucosa, no hearing loss, no congestion - Neck no masses, no bruits, trachea midline, no lymphadenopathy, no venous distension - Respiratory normal expansion, normal respiratory effort, clear to auscultation - Cardiovascular Cardiovascular exam: Present: normal rate and rhythm, RRR, +S1, +S2. Absent: JVD, tachycardia - Abdomen non tender, bowel sounds (present), surgical scars (none), masses (none), distended (nondistended) - Integumentary no rash, no growths, no abnormal pigmentation - Neurologic normal coordination, normal sensation - Musculoskeletal normal gait, normal posture - Psychiatric oriented to time, oriented to person, oriented to place, speech is normal, memory intact - Labs 02/25/20 06:40 02/25/20 06:40 Diabetes panel 02/25/20 Range/Units 06:40 Sodium 143 (133-145) mmol/L Potassium 3.2 L (3.3-5.1) mmol/L Chloride 100 (96-108) mmol/L Carbon Dioxide 28 (22-30) mmol/L BUN 8 (6-20) mg/dl Creatinine 0.6 (0.6-1.1) mg/dl Glucose 184 H (70-105) mg/dL Calcium 6.9 L (8.6-10.4) mg/dl AST 13 (0-37) U/l ALT 12 (0-40) U/l Alkaline Phosphatase 63 (39-117) U/L Total Protein 5.4 L (5.9-8.4) gm/dL Albumin 3.0 L (3.2-5.2) gm/dL Triglycerides 338 H (<150) mg/dl Calcium panel 02/25/20 Range/Units 06:40 Calcium 6.9 L (8.6-10.4) mg/dl Phosphorus 2.8 (2.7-4.5) mg/dL Albumin 3.0 L (3.2-5.2) gm/dL Pituitary panel 02/25/20 Range/Units 06:40 Sodium 143 (133-145) mmol/L Potassium 3.2 L (3.3-5.1) mmol/L Chloride 100 (96-108) mmol/L Carbon Dioxide 28 (22-30) mmol/L BUN 8 (6-20) mg/dl Creatinine 0.6 (0.6-1.1) mg/dl Glucose 184 H (70-105) mg/dL Calcium 6.9 L (8.6-10.4) mg/dl Adrenal panel 02/25/20 Range/Units 06:40 Sodium 143 (133-145) mmol/L Potassium 3.2 L (3.3-5.1) mmol/L Chloride 100 (96-108) mmol/L Carbon Dioxide 28 (22-30) mmol/L BUN 8 (6-20) mg/dl Creatinine 0.6 (0.6-1.1) mg/dl Glucose 184 H (70-105) mg/dL Calcium 6.9 L (8.6-10.4) mg/dl Total Bilirubin 0.2 (0.0-1.0) mg/dL AST 13 (0-37) U/l ALT 12 (0-40) U/l Alkaline Phosphatase 63 (39-117) U/L Total Protein 5.4 L (5.9-8.4) gm/dL Albumin 3.0 L (3.2-5.2) gm/dL Assessment and Plan (1) Diabetic ketoacidosis Status: Resolved Current Visit: Yes (2) Sepsis Status: Resolved Current Visit: Yes (3) Diabetes mellitus type 2, uncontrolled Status: Chronic Current Visit: Yes (4) Primary chronic pseudo-obstruction of small intestine Status: Acute Assessment and plan: clinically improved Two-view abdominal x-ray in the morning Current Visit: No (5) Hypertension Status: Chronic Current Visit: No (6) Myasthenia gravis Status: Chronic Current Visit: No (7) LA (obstructive sleep apnea) Status: Chronic Current Visit: No (8) Polyglandular autoimmune syndrome Status: Chronic Current Visit: No (9) Recurrent intestinal obstruction Problem details: many recurrences; many surgical interventions Status: Chronic Current Visit: No - Time Spent With Patient Total time spent is greater than 50% in coordination of care (as documented) at patient's floor/unit and/or counseling patient:
[2020-02-25] MEDS ORDERED: [UNRECOGNIZED DRUG - OTHER] IV SCH (13:00)
[2020-02-25] MEDS ORDERED: MAGNESIUM SULFATE IV SCH (13:00)
[2020-02-25] MEDS ORDERED: CALCIUM GLUCONATE IV SCH (13:00)
[2020-02-25] MEDS ORDERED: SODIUM CHLORIDE IV SCH (13:00)
[2020-02-25] MEDS: POTASSIUM CHLORIDE 40 MEQ in DEXTROSE 5% IN WATER 500 ML IV PRN (13:06)
[2020-02-25] MEDS ORDERED: CYCLOBENZAPRINE 10 MG TABLET PO PRN (13:08)
[2020-02-25] MEDS ORDERED: ACETAMINOPHEN 325 MG TABLET PO PRN (14:42)
[2020-02-25] MEDS ORDERED: ACETAMINOPHEN 650 MG/65 ML BOTTLE IV PRN (14:42)
[2020-02-25] MEDS ORDERED: DEXTROSE 50% 50 ML VIAL IV PRN (14:42)
[2020-02-25] MEDS ORDERED: MAGNESIUM SULFATE 2 GM/50 ML BAG IV PRN (14:42)
[2020-02-25] MEDS ORDERED: ONDANSETRON 4 MG/2 ML VIAL IV PRN (14:42)
[2020-02-25] MEDS ORDERED: POTASSIUM CHLORIDE 40 MEQ in DEXTROSE 5% IN WATER 500 ML IV PRN (14:42)
[2020-02-25] MEDS ORDERED: DEXTROSE 31 GM ORAL.SUSP PO PRN (14:42)
[2020-02-25] MEDS ORDERED: DIAZEPAM 10 MG/2 ML SYRINGE IV PRN (14:42)
[2020-02-25] MEDS ORDERED: LACTULOSE 20 GM/30 ML ORAL.SOL PO PRN (14:42)
[2020-02-25] MEDS ORDERED: ONDANSETRON 4 MG ODT TABLET SL PRN (14:42)
[2020-02-25] MEDS ORDERED: SENNOSIDES 1 TABLET PO PRN (14:42)
[2020-02-25] MEDS ORDERED: TPN PER PHARMACY IV SCH (14:42)
[2020-02-25] MEDS ORDERED: POLYETHYLENE GLYCOL 3350 17 GM PACKET PO SCH (15:00)
[2020-02-25] MEDS ORDERED: CALCITRIOL 0.25 MCG CAPSULE PO SCH (15:00)
[2020-02-25] MEDS: POLYETHYLENE GLYCOL 3350 17 GM PACKET PO SCH ×2 (15:50→20:49)
[2020-02-25] MEDS: CALCITRIOL 0.25 MCG CAPSULE PO SCH ×2 (15:51→20:49)
[2020-02-25] MEDS ORDERED: ERYTHROMYCIN BASE 250 MG TABLET PO SCH (17:00)
[2020-02-25] MEDS ORDERED: GABAPENTIN 300 MG CAPSULE PO SCH (17:00)
[2020-02-25] MEDS: GABAPENTIN 300 MG CAPSULE PO SCH ×2 (17:48→20:49)
[2020-02-25] MEDS: ERYTHROMYCIN BASE 250 MG TABLET PO SCH ×2 (17:48→20:48)
[2020-02-25] MEDS: DULoxetine 30 MG CAPSULE PO SCH (20:49)
[2020-02-25] MEDS: MAGNESIUM HYDROXIDE 30 ML ORAL.SUSP PO SCH (20:49)
[2020-02-25] MEDS ORDERED: MAGNESIUM HYDROXIDE 30 ML ORAL.SUSP PO SCH (21:00)
[2020-02-25] MEDS ORDERED: DULoxetine 30 MG CAPSULE PO SCH (21:00)
[2020-02-26] MEDS: HYDROmorphone 0.5 MG/0.5 ML SYRINGE IV PRN ×8 (01:25→17:19)
[2020-02-26] MEDS: PYRIDOSTIGMINE BROMIDE 10 MG/2 ML ML IM SCH ×3 (05:53→17:03)
[2020-02-26] MEDS: 0.9 % SODIUM CHLORIDE 10 ML SYRINGE IV SCH ×3 (05:54→21:00)
[2020-02-26 06:39] LABS: Hematocrit 33.5 % (34.1-44.9); Hemoglobin 10.4 g/dL (11.2-15.7); Mean Cell Volume 89.3 fL (80.0-100.0); Mean Platelet Volume 9.6 fL (7.4-10.4); Platelet Count 291 K/mcL (140-440); RBC 3.75 M/mcL (3.59-5.38); Red Cell Distribution Width 15.5 % (11.5-14.5); WBC 5.5 K/mcL (4.50-11.00)
[2020-02-26 07:02] LABS: ALT/SGPT 12 U/l (0-40); AST/SGOT 10 U/l (0-37); Albumin 2.8 gm/dL (3.2-5.2); Albumin/Globulin Ratio 1.1 (1.0-2.3); Alkaline Phosphatase 59 U/L (39-117); Bilirubin,Direct < 0.2 mg/dL (0.0-0.3); Bilirubin,Total < 0.2 mg/dL (0.0-1.0); Blood Urea Nitrogen 13 mg/dl (6-20); Carbon Dioxide 23 mmol/L (22-30); Chloride 102 mmol/L (96-108); Globulin 2.5 gm/dL (2.2-3.7); Glomerular Filtration Rate 107; Glucose 200 mg/dL (70-105); Lactate Dehydrogenase 312 U/L (94-250); Phosphorous 3.1 mg/dL (2.7-4.5); Uric Acid 1.4 mg/dL (2.5-8.0)
[2020-02-26 07:03] LABS: Triglycerides 381 mg/dl (<150)
[2020-02-26 07:47] LABS: Anisocytosis FEW (NONE SEEN); Lymphocytes % 24 % (15-49); Monocytes % (Manual) 6 % (1-12); Platelet Estimate NORMAL (NORMAL); RBC Morphology ABNORM (NORMAL); Segmented Neutrophils % 70 % (38-78)
--- NOTE | 2020-02-26 08:12 | XRay Report ---
CLINICAL INFORMATION: FOLLOW -UP OF SMALL BOWEL OBSTRUCTION COMPARISON: 02/25/2020 FINDINGS: NG tube now. Stool gas pattern has improved dramatically now with only minimal dilatation of the stomach and proximal and mid small bowel loops. No free air. IMPRESSION: Near complete resolution - distal small bowel obstruction. Interpreted and Authenticated by: All Lundberg 02/26/20
--- NOTE | 2020-02-26 08:24 | Internal Med Progress Note ---
Medical - PN: Subj Patient information: Note initiated : 02/25/20 at 8:24 am Service Date, if different from initiated Date: [] Patient: Dayanna Guo a 59 y/o F admitted on 02/22/20 for nausea and vomiting. Chief Complaint: [] Interval history: Ms. 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 Following failed conservative management she underwent exploratory laparotomy with adhesion lysis on February 06. She was thereafter discharged in stable state however she noticed recurrence of symptoms and presented on February 19 with nausea vomiting and abdominal pain.fo llowing initial treatment with antiemetics and fluids she felt better and was discharged home. Symptoms thereafter continued to worsen with increasing abdominal distention, pain, loss of appetite and severe dehydration over the next 48 hours prompting her to present to the ER again. Initial work-up was consistent with acute renal failure/sinus tachycardia/hypertension elevated white count consistent with severe sepsis syndrome, endorgan dysfunction. Surgery was consulted. CT abdomen pelvis was ordered. Hospital service was consulted for management of medical issues while patient readmitted by surgery in light of postoperative symptoms requiring further evaluation. Patient was empirically started on Zosyn vancomycin and Levaquin after cultures were drawn. Tachycardia improved following administration of 2 L of crystalloids from 140s to 110 At the time of evaluation patient is alert and oriented. She was able to answer most of the questions endorse history as above. She endorses drenching sweats. She appears quite anxious and distressed. She denies headache photophobia, myalgia. She denies changes in her medications or diet. 02/22-patient clinically improved. NG tube decompression ongoing. Ongoing management per surgery. White count down from 15.5-7.3. Sodium improved from 1 27-1 33. Creatinine down from 2.1-1.2. Magnesium 1.3 on replacement. Blood sugars at goal. Urine WBC 18. On antibiotic coverage. 02/23-renal function normalized. White count normalized. NG-tube decompression ongoing. Sodium improved to 137. Potassium at 3 on replacement. Magnesium improved 1.8. Creatinine down to 0.6 from 2.1. Urine cultures negative so far 02/24-clinically improved. Discontinued NG decompression. On parenteral nutrition. Electrolytes improved potassium at 3.2. Calcium is 6.9 on replacement. Continue Abx. Continue management per surgery. Antibiotics DC'd. - Constitutional Vitals: Vital Signs Temp Pulse Resp BP Pulse Ox 98.4 F 74 16 138/68 94 02/26/20 07:00 02/26/20 03:38 02/26/20 07:00 02/26/20 07:00 02/26/20 07:00 Period Temp Pulse Resp BP Sys/Archuleta Pulse Ox Last 24 Hr 97 F-98.7 F 65-88 12-20 113-144/57-75 92-97 Intake and Output 02/25/20 02/26/20 02/26/20 21:59 05:59 13:59 Intake Total 1640 540 600 Output Total 1775 1675 775 Balance -135 -1135 -175 Weight 205 lb 8 oz Intake & Output: Intake & Output 02/25/20 02/26/20 02/26/20 21:59 05:59 13:59 Intake Total 1640 540 600 Output Total 1775 1675 775 Balance -135 -1135 -175 Weight 205 lb 8 oz Intake: Oral 1640 540 600 Output: Urine Catheter Amount 300 Void Amount 350 1225 575 Stool 1125 450 200 Other: Meal Dinner Percent of Meal Consumed 100% 100% Feeding Ability Independent Urine Appearance Clear Clear Clear Cloudy Urine Color Bright Yellow Pale Pale Urine Odor Normal Normal Stool Color Brown Brown Green Green Stool Consistency Liquid General appearance: no acute distress Exam: Doing well NG discontinued Nonlabored breathing no anxiety Her abdomen Medical - PN: Obj Da - Labs CBC & Chem 7: 02/26/20 05:12 02/26/20 05:12 Labs: Abnormal Lab Results 02/26/20 02/26/20 02/25/20 05:12 05:12 06:40 WBC RBC Hgb 10.4 L Hct 33.5 L RDW 15.5 H RBC Morphology Abnorm A Anisocytosis Few A Potassium 3.2 L Creatinine 0.5 L Glucose 200 H 184 H Uric Acid 1.4 L 1.6 L Calcium 7.0 L 6.9 L Lactate Dehydrogenase 312 H 305 H Total Protein 5.3 L 5.4 L Albumin 2.8 L 3.0 L Triglycerides 381 H 338 H 02/25/20 02/24/20 02/24/20 06:40 05:15 05:15 WBC 4.4 L RBC 3.19 L Hgb 10.3 L 8.9 L Hct 32.0 L 27.9 L RDW 15.3 H 15.4 H RBC Morphology Anisocytosis Potassium 3.0 L Creatinine Glucose 170 H Uric Acid Calcium 6.1 L Lactate Dehydrogenase Total Protein 4.6 L Albumin 2.4 L Triglycerides 276 H Meds: Medications Acetaminophen (Tylenol) 650 mg PO Q4-6HP PRN; Protocol PRN Reason: Per Pain Protocol/Fever > 101 Calcitriol (Rocaltrol) 0.5 mcg PO TID [facility] Last Admin: 02/25/20 20:49 Dose: 0.5 mcg Documented by: Calcium Gluconate (Calcium Gluconate) 4.65 meq IV ONCE PRN PRN Reason: Calcium >7.2 Cyclobenzaprine HCl (Flexeril) 10 mg PO BIDP PRN PRN Reason: Spasms Dextrose (Dextrose 50%) 0 ml IV UD PRN PRN Reason: Hypoglycemia Diagnostic Test (Pha) (Accu-Chek) 1 each FS ACHS [facility] Last Admin: 02/25/20 21:01 Dose: 1 each Documented by: Diazepam (Valium) 5 mg IV Q6-8HP PRN PRN Reason: Muscle Spasm Docusate Sodium (Colace) 100 mg PO BID [facility] Last Admin: 02/25/20 20:48 Dose: 100 mg Documented by: Duloxetine HCl (Cymbalta) 30 mg PO BID [facility] Last Admin: 02/25/20 20:49 Dose: 30 mg Documented by: Erythromycin (Erythromycin) 250 mg PO QID [facility]; Protocol Last Admin: 02/25/20 20:48 Dose: 250 mg Documented by: Gabapentin (Neurontin) 300 mg PO QID [facility] Last Admin: 02/25/20 20:49 Dose: 300 mg Documented by: Glucose (Insta-Glucose) 15 gm PO PRN PRN PRN Reason: Hypoglycemia Heparin Sodium (Porcine) (Heparin) 5,000 unit SQ Q12 [facility] Last Admin: 02/25/20 20:46 Dose: 5,000 unit Documented by: Hydrocortisone Sodium Succinate (Solu-Cortef) 50 mg IV Q12 [facility] Last Admin: 02/25/20 20:47 Dose: 50 mg Documented by: Hydromorphone HCl (Dilaudid) 0.5 mg IV Q2HP PRN; Protocol PRN Reason: Per Pain Protocol Last Admin: 02/26/20 05:53 Dose: 0.5 mg Documented by: Calcium Gluconate 9.3 meq/ (Dextrose) 70 mls @ 141.505 mls/hr IV DAILY [facility] Fat Emulsion Intravenous (Intralipid 20%) 250 mls @ 25 mls/hr IV [id number]@1600 [place] Potassium Chloride 40 meq/ (Dextrose) 520 mls @ 130 mls/hr IV UD PRN PRN Reason: K+ = or < 3.5 Magnesium Sulfate (Magnesium Sulfate) 2 gm in 50 mls @ 50 mls/hr IV UD PRN PRN Reason: MG = or < 1.7 Sodium Chloride (Sodium Chloride 0.9%) 1,000 mls @ 100 mls/hr IV .Q10H [facility] Last Admin: 02/25/20 23:02 Dose: 100 mls/hr Documented by: Acetaminophen (Ofirmev) 650 mg in 65 mls @ 130 mls/hr IV Q6HP PRN; Protocol PRN Reason: Per Pain Protocol/Fever > 101 Calcium Gluconate 20 meq/Magnesium Sulfate 32.48 meq/Sodium Chloride 80 meq/Potassium Chloride 40 meq/Multivitamins/Minerals 10 ml/Potassium Phosphate 60 meq/Amino Acids 2,114.6471 mls @ 85 mls/hr IV Q24H [facility] Insulin Glargine (Lantus) 5 unit SQ BID [facility] Last Admin: 02/25/20 21:07 Dose: Not Given Documented by: Insulin Human Lispro (Humalog) 0 unit SQ ACHS [facility]; Protocol Last Admin: 02/25/20 21:05 Dose: 2 units Documented by: Lactulose (Cephulac) 10 gm PO DAILYP PRN PRN Reason: Constipation Magnesium Hydroxide (Milk Of Magnesia) 30 ml PO BID [facility] Last Admin: 02/25/20 20:49 Dose: 30 ml Documented by: Ondansetron HCl (Zofran Odt) 4 mg SL Q4-6HP PRN; Protocol PRN Reason: Nausea And Vomiting Ondansetron HCl (Zofran) 4 mg IV Q4-6HP PRN; Protocol PRN Reason: Nausea And Vomiting Polyethylene Glycol (Miralax) 17 gm PO TID [facility] Last Admin: 02/25/20 20:49 Dose: 17 gm Documented by: Pyridostigmine [place] (Regonol) 10 mg IM Q6H [facility] Last Admin: 02/26/20 05:53 Dose: 10 mg Documented by: Fanta (Senokot) 2 tab PO HSP PRN PRN Reason: Constipation Sodium Chloride (Saline Flush) 10 ml IV Q8 [facility] Last Admin: 02/26/20 05:54 Dose: Not Given Documented by: Medical - PN: A/P - Time Spent With Patient Total time spent is greater than 50% in coordination of care (as documented) at patient's floor/unit and/or counseling patient: 15 - 24 minutes (1) Severe sepsis Status: Acute Assessment and plan: * Recurrent bowel obstruction following recent intestinal obstruction/post exploratory laparotomy. Managed by surgery. NG discontinued Hospitalist consult for management of medical issues as below * Acute renal failure secondary to sepsis. Resolved * Hypokalemia continue replacement * Hypocalcemia on replacement * Low magnesium 1.3 improved to 1.8 * DM type II poorly controlled. Blood sugars at goal on basal prandial insulin * Hypothyroidism held oral thyroxine * anxiety disorder use as needed IV benzodiazepine. * History of panhypopituitarism * History of myasthenia gravis continue IV pyridostigmine/hydrocortisone * Morbid obesity BMI over 40 -continue frequent turning/nutrition support/decubitus precautions * History of obstructive sleep apnea not on CPAP due to increased air insufflation causing abdominal discomfort * Neuropathy on gabapentin at home. Hold until able to take p.o. * Full code * Prophylax Heparin Plan * Bowel obstruction management per surgery * IV hydrocortisone * Continue electrolyte replacement * TPN per surgery * PT OT Current Visit: Yes Medical - PN: Qual - VTE Deep Vein Thrombosis/Pulmonary Embolism Present on Admission: No
[2020-02-26] MEDS: INSULIN LISPRO 1 UNIT/0.01 ML UNIT SQ SCH ×4 (08:29→20:59)
[2020-02-26] MEDS: CALCIUM GLUCONATE 9.3 MEQ in DEXTROSE 5% IN WATER 50 ML IV SCH (08:29)
[2020-02-26] MEDS: DOCUSATE SODIUM 100 MG CAPSULE PO SCH ×2 (08:30→20:58)
[2020-02-26] MEDS: ERYTHROMYCIN BASE 250 MG TABLET PO SCH ×4 (08:30→21:05)
[2020-02-26] MEDS: DULoxetine 30 MG CAPSULE PO SCH ×2 (08:30→20:58)
[2020-02-26] MEDS: MAGNESIUM HYDROXIDE 30 ML ORAL.SUSP PO SCH ×2 (08:31→20:57)
[2020-02-26] MEDS: HEPARIN 5,000 UNIT/ML VIAL SQ SCH ×2 (08:31→20:59)
[2020-02-26] MEDS: POLYETHYLENE GLYCOL 3350 17 GM PACKET PO SCH ×3 (08:32→20:58)
[2020-02-26] MEDS: INSULIN GLARGINE, HUMAN 1 UNIT/0.01 ML SQ SCH ×2 (08:32→20:59)
[2020-02-26] MEDS: CALCITRIOL 0.25 MCG CAPSULE PO SCH ×3 (08:32→21:00)
[2020-02-26] MEDS: GABAPENTIN 300 MG CAPSULE PO SCH ×4 (08:32→20:58)
[2020-02-26] MEDS: HYDROCORTISONE SOD SUCC 100 MG VIAL IV SCH (08:33)
[2020-02-26] MEDS ORDERED: ONDANSETRON 4 MG ODT TABLET SL PRN (09:07)
[2020-02-26] MEDS ORDERED: PROMETHAZINE 25 MG SUPP.RECT PR PRN (09:07)
[2020-02-26] MEDS ORDERED: ACETAMINOPHEN 325 MG TABLET PO PRN (09:07)
[2020-02-26] MEDS ORDERED: PROMETHAZINE 25 MG TABLET PO PRN (09:07)
--- NOTE | 2020-02-26 09:55 | Internal Med Progress Note ---
Medical - PN: Subj Patient information: Note initiated : 02/26/20 at 9:52 am Service Date, if different from initiated Date: [] Patient: Dayanna Guo a 59 y/o F admitted on 02/22/20 for nausea and vomiting. Chief Complaint: [] Interval history: Ms. 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 Following failed conservative management she underwent exploratory laparotomy with adhesion lysis on February 06. She was thereafter discharged in stable state however she noticed recurrence of symptoms and presented on February 19 with nausea vomiting and abdominal pain.fo llowing initial treatment with antiemetics and fluids she felt better and was discharged home. Symptoms thereafter continued to worsen with increasing abdominal distention, pain, loss of appetite and severe dehydration over the next 48 hours prompting her to present to the ER again. Initial work-up was consistent with acute renal failure/sinus tachycardia/hypertension elevated white count consistent with severe sepsis syndrome, endorgan dysfunction. Surgery was consulted. CT abdomen pelvis was ordered. Hospital service was consulted for management of medical issues while patient readmitted by surgery in light of postoperative symptoms requiring further evaluation. Patient was empirically started on Zosyn vancomycin and Levaquin after cultures were drawn. Tachycardia improved following administration of 2 L of crystalloids from 140s to 110 At the time of evaluation patient is alert and oriented. She was able to answer most of the questions endorse history as above. She endorses drenching sweats. She appears quite anxious and distressed. She denies headache photophobia, myalgia. She denies changes in her medications or diet. 02/22-patient clinically improved. NG tube decompression ongoing. Ongoing management per surgery. White count down from 15.5-7.3. Sodium improved from 1 27-1 33. Creatinine down from 2.1-1.2. Magnesium 1.3 on replacement. Blood sugars at goal. Urine WBC 18. On antibiotic coverage. 02/23-renal function normalized. White count normalized. NG-tube decompression ongoing. Sodium improved to 137. Potassium at 3 on replacement. Magnesium improved 1.8. Creatinine down to 0.6 from 2.1. Urine cultures negative so far 02/24-clinically improved. Discontinued NG decompression. On parenteral nutrition. Electrolytes improved potassium at 3.2. Calcium is 6.9 on replacement. Continue Abx. Continue management per surgery. Antibiotics DC'd. 02/25-patient doing remarkably well. No overnight events. Off NG tube. Started on oral medications and diet. TPN being weaned off per surgery. Denies abdominal pain. Complains of minimal back pain. In good spirits. Ongoing physical therapy. Potassium normalized. Calcium is 7. - Constitutional Vitals: Vital Signs Temp Pulse Resp BP Pulse Ox 97.8 F 101 H 16 149/95 95 02/26/20 08:34 02/26/20 08:34 02/26/20 08:34 02/26/20 08:34 02/26/20 08:34 Period Temp Pulse Resp BP Sys/Archuleta Pulse Ox Last 24 Hr 97 F-98.7 F 65-101 12-20 113-149/57-95 92-97 Intake and Output 02/25/20 02/26/20 02/26/20 21:59 05:59 13:59 Intake Total 1640 540 670 Output Total 1775 1675 775 Balance -135 -1135 -105 Weight 205 lb 8 oz Intake & Output: Intake & Output 02/25/20 02/26/20 02/26/20 21:59 05:59 13:59 Intake Total 1640 540 670 Output Total 1775 1675 775 Balance -135 -1135 -105 Weight 205 lb 8 oz Intake: IV 70 Calcium Gluconate 9.3 Meq In 70 Dextrose 5% in Water 50 ml @ 141.505 mls/hr IV DAILY [facility] Rx# :[id number] Oral 1640 540 600 Output: Urine Catheter Amount 300 Void Amount 350 1225 575 Stool 1125 450 200 Other: Meal Dinner Percent of Meal Consumed 100% 100% Feeding Ability Independent Urine Appearance Clear Clear Clear Cloudy Urine Color Bright Yellow Pale Pale Urine Odor Normal Normal Stool Color Brown Brown Green Green Stool Consistency Liquid General appearance: no acute distress Exam: Alert oriented Nonlabored breathing Nondistended abdomen No lymphedema Medical - PN: Obj Da - Labs CBC & Chem 7: 02/26/20 05:12 02/26/20 05:12 Labs: Abnormal Lab Results 02/26/20 02/26/20 02/25/20 05:12 05:12 06:40 WBC RBC Hgb 10.4 L Hct 33.5 L RDW 15.5 H RBC Morphology Abnorm A Anisocytosis Few A Potassium 3.2 L Creatinine 0.5 L Glucose 200 H 184 H Uric Acid 1.4 L 1.6 L Calcium 7.0 L 6.9 L Lactate Dehydrogenase 312 H 305 H Total Protein 5.3 L 5.4 L Albumin 2.8 L 3.0 L Triglycerides 381 H 338 H 02/25/20 02/24/20 02/24/20 06:40 05:15 05:15 WBC 4.4 L RBC 3.19 L Hgb 10.3 L 8.9 L Hct 32.0 L 27.9 L RDW 15.3 H 15.4 H RBC Morphology Anisocytosis Potassium 3.0 L Creatinine Glucose 170 H Uric Acid Calcium 6.1 L Lactate Dehydrogenase Total Protein 4.6 L Albumin 2.4 L Triglycerides 276 H Meds: Medications Acetaminophen (Tylenol) 650 mg PO Q4-6HP PRN; Protocol PRN Reason: Per Pain Protocol/Fever > 101 Acetaminophen (Tylenol) 650 mg PO Q6HP PRN; Protocol PRN Reason: PAIN/FEVER > 101 Calcitriol (Rocaltrol) 0.5 mcg PO TID [facility] Last Admin: 02/26/20 08:32 Dose: 0.5 mcg Documented by: Calcium Gluconate (Calcium Gluconate) 4.65 meq IV ONCE PRN PRN Reason: Calcium >7.2 Cyclobenzaprine HCl (Flexeril) 10 mg PO BIDP PRN PRN Reason: Spasms Dextrose (Dextrose 50%) 0 ml IV UD PRN PRN Reason: Hypoglycemia Diagnostic Test (Pha) (Accu-Chek) 1 each FS ACHS [facility] Last Admin: 02/26/20 08:28 Dose: 1 each Documented by: Diazepam (Valium) 5 mg IV Q6-8HP PRN PRN Reason: Muscle Spasm Docusate Sodium (Colace) 100 mg PO BID [facility] Last Admin: 02/26/20 08:30 Dose: 100 mg Documented by: Duloxetine HCl (Cymbalta) 30 mg PO BID [facility] Last Admin: 02/26/20 08:30 Dose: 30 mg Documented by: Erythromycin (Erythromycin) 250 mg PO QID [facility]; Protocol Last Admin: 02/26/20 08:30 Dose: 250 mg Documented by: Gabapentin (Neurontin) 300 mg PO QID [facility] Last Admin: 02/26/20 08:32 Dose: 300 mg Documented by: Glucose (Insta-Glucose) 15 gm PO PRN PRN PRN Reason: Hypoglycemia Heparin Sodium (Porcine) (Heparin) 5,000 unit SQ Q12 [facility] Last Admin: 02/26/20 08:31 Dose: 5,000 unit Documented by: Hydromorphone HCl (Dilaudid) 0.5 mg IV Q2HP PRN; Protocol PRN Reason: Per Pain Protocol Last Admin: 02/26/20 08:33 Dose: 0.5 mg Documented by: Calcium Gluconate 9.3 meq/ (Dextrose) 70 mls @ 141.505 mls/hr IV DAILY [facility] Last Infusion: 02/26/20 09:42 Dose: Infused Documented by: Potassium Chloride 40 meq/ (Dextrose) 520 mls @ 130 mls/hr IV UD PRN PRN Reason: K+ = or < 3.5 Magnesium Sulfate (Magnesium Sulfate) 2 gm in 50 mls @ 50 mls/hr IV UD PRN PRN Reason: MG = or < 1.7 Sodium Chloride (Sodium Chloride 0.9%) 1,000 mls @ 100 mls/hr IV .Q10H [facility] Last Admin: 02/25/20 23:02 Dose: 100 mls/hr Documented by: Acetaminophen (Ofirmev) 650 mg in 65 mls @ 130 mls/hr IV Q6HP PRN; Protocol PRN Reason: Per Pain Protocol/Fever > 101 Calcium Gluconate 20 meq/Magnesium Sulfate 32.48 meq/Sodium Chloride 80 meq/Potassium Chloride 40 meq/Multivitamins/Minerals 10 ml/Potassium Phosphate 60 meq/Amino Acids 2,114.6471 mls @ 85 mls/hr IV Q24H [facility] Insulin Glargine (Lantus) 5 unit SQ BID [facility] Last Admin: 02/26/20 08:32 Dose: 5 units Documented by: Insulin Human Lispro (Humalog) 0 unit SQ ACHS [facility]; Protocol Last Admin: 02/26/20 08:29 Dose: Not Given Documented by: Lactulose (Cephulac) 10 gm PO DAILYP PRN PRN Reason: Constipation Levothyroxine Sodium (Synthroid) 250 mcg PO QAMAC [facility] Magnesium Hydroxide (Milk Of Magnesia) 30 ml PO BID [facility] Last Admin: 02/26/20 08:31 Dose: 30 ml Documented by: Magnesium Oxide (Magnesium Oxide) 400 mg PO BID [facility] Metformin HCl (Glucophage) 500 mg PO [facility] Ondansetron HCl (Zofran Odt) 4 mg SL Q4-6HP PRN; Protocol PRN Reason: Nausea And Vomiting Ondansetron HCl (Zofran) 4 mg IV Q4-6HP PRN; Protocol PRN Reason: Nausea And Vomiting Ondansetron HCl (Zofran Odt) 4 mg SL Q4HP PRN PRN Reason: Nausea Polyethylene Glycol (Miralax) 17 gm PO TID [facility] Last Admin: 02/26/20 08:32 Dose: 17 gm Documented by: Prednisone (Prednisone) 20 mg PO [facility] Promethazine HCl (Phenergan) 25 mg SC Q6HP PRN PRN Reason: nausea vomitting Promethazine HCl (Phenergan) 25 mg PO Q6HP PRN PRN Reason: Nausea Pyridostigmine Gary (Regonol) 10 mg IM Q6H [facility] Last Admin: 02/26/20 05:53 Dose: 10 mg Documented by: Senna (Senokot) 2 tab PO HSP PRN PRN Reason: Constipation Sodium Chloride (Saline Flush) 10 ml IV Q8 [facility] Last Admin: 02/26/20 05:54 Dose: Not Given Documented by: Tramadol HCl (Ultram) 50 mg PO Q6HP PRN PRN Reason: Pain Medical - PN: A/P - Time Spent With Patient Total time spent is greater than 50% in coordination of care (as documented) at patient's floor/unit and/or counseling patient: 15 - 24 minutes (1) Severe sepsis Status: Acute Assessment and plan: * Recurrent bowel obstruction following recent intestinal obstruction/post exp loratory laparotomy. Managed by surgery. NG discontinued Hospitalist consult for management of medical issues as below * Acute renal failure secondary to sepsis. Resolved * Abnormal electrolytes improving with aggressive replacement during potassium calcium and magnesium * DM type II- Blood sugars at goal on basal prandial insulin * Hypothyroidism start oral thyroxine * anxiety disorder use on Cymbalta * History of panhypopituitarism * History of myasthenia gravis continue IV pyridostigmine/prednisone * Morbid obesity BMI over 40 -continue frequent turning/nutrition support/decubitus precautions * History of obstructive sleep apnea not on CPAP due to increased air insufflation causing abdominal discomfort * Neuropathy on gabapentin * Full code * Prophylax Heparin Plan * Bowel obstruction management per surgery * Addition to oral medications * Continue electrolyte replacement as indicated * Diet advancement per surgery * PT OT * Discharge planning Current Visit: Yes Medical - PN: Qual - VTE Deep Vein Thrombosis/Pulmonary Embolism Present on Admission: No
[2020-02-26] MEDS ORDERED: SODIUM CHLORIDE IV SCH ×3 (10:00→13:00)
[2020-02-26] MEDS ORDERED: MAGNESIUM SULFATE IV SCH ×3 (10:00→13:00)
[2020-02-26] MEDS ORDERED: [UNRECOGNIZED DRUG - OTHER] IV SCH (10:00)
[2020-02-26] MEDS ORDERED: CALCIUM GLUCONATE IV SCH ×3 (10:00→13:00)
--- NOTE | 2020-02-26 12:07 | General Surgery Progress Note ---
Subjective Patient reports: feels better, pain is less, tolerating liquids well, flatus, bowel movement, diarrhea, afebrile Narrative: Note initiated : 02/26/20 at 12:04 pm Service Date, if different from initiated Date: [] Patient: Dayanna Guo 59 y/o F admitted on 02/22/20 for nausea and vomiting. Chief Complaint: [patient continues to improve. She has had large-volume liquid stools.she has had 3400 cc output through her ileostomy over the past 2 days. She has large volume output so far today. Her abdomen is flat. She has no abdominal pain. She is tolerating full liquids without difficulty. White blood count 5.5 hemoglobin 10.4 hematocrit 33.5 calcium 7] Objective Temp Pulse Resp BP Pulse Ox 97.8 F 101 H 16 149/95 95 02/26/20 08:34 02/26/20 08:34 02/26/20 08:34 02/26/20 08:34 02/26/20 08:34 - Additional Data Intake & Output - Last 24 hours: Intake & Output 02/24/20 02/25/20 02/26/20 02/27/20 05:59 05:59 05:59 05:59 Intake Total 2270 6425 4078 910 Output Total 3950 5950 4650 1375 Balance -1680 475 -572 -465 Weight 198 lb 11.2 oz 202 lb 205 lb 8 oz 205 lb 8 oz - General physical appearance well developed, well nourished, no distress - Eyes PERRL, normal ocular movement - ENT normal pinna, normal nares, normal mucosa, no hearing loss, no congestion - Neck no masses, no bruits, trachea midline, no lymphadenopathy, no venous distension - Respiratory normal expansion, normal respiratory effort, clear to auscultation - Cardiovascular Cardiovascular exam: Present: normal rate and rhythm, RRR, +S1, +S2. Absent: JVD, tachycardia - Abdomen non tender, bowel sounds (present), surgical scars (none), masses (none), distended (no distention noted) - Neurologic normal coordination, normal sensation - Musculoskeletal normal gait, normal posture - Psychiatric oriented to time, oriented to person, oriented to place, speech is normal, memory intact - Labs 02/26/20 05:12 02/26/20 05:12 Diabetes panel 02/26/20 Range/Units 05:12 Sodium 139 (133-145) mmol/L Potassium 4.5 (3.3-5.1) mmol/L Chloride 102 (96-108) mmol/L Carbon Dioxide 23 (22-30) mmol/L BUN 13 (6-20) mg/dl Creatinine 0.5 L (0.6-1.1) mg/dl Glucose 200 H (70-105) mg/dL Calcium 7.0 L (8.6-10.4) mg/dl AST 10 (0-37) U/l ALT 12 (0-40) U/l Alkaline Phosphatase 59 (39-117) U/L Total Protein 5.3 L (5.9-8.4) gm/dL Albumin 2.8 L (3.2-5.2) gm/dL Triglycerides 381 H (<150) mg/dl Calcium panel 02/26/20 Range/Units 05:12 Calcium 7.0 L (8.6-10.4) mg/dl Phosphorus 3.1 (2.7-4.5) mg/dL Albumin 2.8 L (3.2-5.2) gm/dL Pituitary panel 02/26/20 Range/Units 05:12 Sodium 139 (133-145) mmol/L Potassium 4.5 (3.3-5.1) mmol/L Chloride 102 (96-108) mmol/L Carbon Dioxide 23 (22-30) mmol/L BUN 13 (6-20) mg/dl Creatinine 0.5 L (0.6-1.1) mg/dl Glucose 200 H (70-105) mg/dL Calcium 7.0 L (8.6-10.4) mg/dl Adrenal panel 02/26/20 Range/Units 05:12 Sodium 139 (133-145) mmol/L Potassium 4.5 (3.3-5.1) mmol/L Chloride 102 (96-108) mmol/L Carbon Dioxide 23 (22-30) mmol/L BUN 13 (6-20) mg/dl Creatinine 0.5 L (0.6-1.1) mg/dl Glucose 200 H (70-105) mg/dL Calcium 7.0 L (8.6-10.4) mg/dl Total Bilirubin < 0.2 (0.0-1.0) mg/dL AST 10 (0-37) U/l ALT 12 (0-40) U/l Alkaline Phosphatase 59 (39-117) U/L Total Protein 5.3 L (5.9-8.4) gm/dL Albumin 2.8 L (3.2-5.2) gm/dL Assessment and Plan (1) Diabetic ketoacidosis Status: Resolved Current Visit: Yes (2) Sepsis Status: Resolved Current Visit: Yes (3) Diabetes mellitus type 2, uncontrolled Status: Chronic Current Visit: Yes (4) Primary chronic pseudo-obstruction of small intestine Status: Acute Assessment and plan: Obstructive pattern has resolved and patient has minimal gaseous distention of her bowel Advanced to regular diet Discontinue TPN Possible discharge tomorrow Current Visit: No (5) Hypertension Status: Chronic Current Visit: No (6) Myasthenia gravis Status: Chronic Current Visit: No (7) LA (obstructive sleep apnea) Status: Chronic Current Visit: No (8) Polyglandular autoimmune syndrome Status: Chronic Current Visit: No (9) Recurrent intestinal obstruction Problem details: many recurrences; many surgical interventions Status: Chronic Current Visit: No - Time Spent With Patient Total time spent is greater than 50% in coordination of care (as documented) at patient's floor/unit and/or counseling patient:
[2020-02-26] MEDS: 0.9 % SODIUM CHLORIDE 1,000 ML IV SCH ×2 (12:47→23:00)
[2020-02-26] MEDS ORDERED: [UNRECOGNIZED DRUG - OTHER] IV SCH (13:00)
[2020-02-26] MEDS ORDERED: [UNRECOGNIZED DRUG - OTHER] IV SCH (13:00)
[2020-02-26] MEDS: traMADol 50 MG TABLET PO PRN (19:23)
[2020-02-26] MEDS: CYCLOBENZAPRINE 10 MG TABLET PO PRN (20:58)
[2020-02-26] MEDS: MAGNESIUM OXIDE 400 MG TABLET PO SCH (20:59)
[2020-02-27] MEDS: HYDROmorphone 0.5 MG/0.5 ML SYRINGE IV PRN (00:13)
[2020-02-27] MEDS: PYRIDOSTIGMINE BROMIDE 10 MG/2 ML ML IM SCH ×3 (00:13→12:09)
[2020-02-27] MEDS: traMADol 50 MG TABLET PO PRN ×4 (00:14→14:59)
[2020-02-27] MEDS: 0.9 % SODIUM CHLORIDE 10 ML SYRINGE IV SCH ×2 (05:59→13:26)
[2020-02-27 06:46] LABS: Hematocrit 27.3 % (34.1-44.9); Hemoglobin 8.7 g/dL (11.2-15.7); Mean Cell Volume 88.9 fL (80.0-100.0); Mean Corpuscular HGB Conc 31.9 g/dL (31.0-36.0); Mean Platelet Volume 9.6 fL (7.4-10.4); Platelet Count 249 K/mcL (140-440); RBC 3.07 M/mcL (3.59-5.38); Red Cell Distribution Width 15.7 % (11.5-14.5); WBC 5.2 K/mcL (4.50-11.00)
[2020-02-27 07:11] LABS: ALT/SGPT 11 U/l (0-40); AST/SGOT 9 U/l (0-37); Albumin 2.4 gm/dL (3.2-5.2); Albumin/Globulin Ratio 1.1 (1.0-2.3); Alkaline Phosphatase 47 U/L (39-117); Bilirubin,Direct < 0.2 mg/dL (0.0-0.3); Bilirubin,Total < 0.2 mg/dL (0.0-1.0); Blood Urea Nitrogen 13 mg/dl (6-20); Calcium 7.2 mg/dl (8.6-10.4); Carbon Dioxide 25 mmol/L (22-30); Chloride 105 mmol/L (96-108); Globulin 2.1 gm/dL (2.2-3.7); Glomerular Filtration Rate 107; Glucose 92 mg/dL (70-105); Lactate Dehydrogenase 263 U/L (94-250); Phosphorous 3.5 mg/dL (2.7-4.5)
[2020-02-27 07:22] LABS: Triglycerides 466 mg/dl (<150); Uric Acid 1.9 mg/dL (2.5-8.0)
[2020-02-27] MEDS ORDERED: LEVOTHYROXINE 125 MCG TABLET PO SCH (07:30)
[2020-02-27] MEDS: 0.9 % SODIUM CHLORIDE 1,000 ML IV SCH (07:34)
[2020-02-27] MEDS: INSULIN LISPRO 1 UNIT/0.01 ML UNIT SQ SCH ×2 (07:47→12:02)
[2020-02-27] MEDS ORDERED: metFORMIN 500 MG TABLET PO SCH (08:00)
[2020-02-27] MEDS ORDERED: predniSONE 20 MG TABLET PO SCH (08:00)
--- NOTE | 2020-02-27 08:14 | Internal Med Progress Note ---
Medical - PN: Subj Patient information: Note initiated : 02/27/20 at 8:11 am Service Date, if different from initiated Date: [] Patient: Dayanna Guo a 59 y/o F admitted on 02/22/20 for nausea and vomiting. Chief Complaint: [] Interval history: Ms. 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 Following failed conservative management she underwent exploratory laparotomy with adhesion lysis on February 06. She was thereafter discharged in stable state however she noticed recurrence of symptoms and presented on February 19 with nausea vomiting and abdominal pain.fo llowing initial treatment with antiemetics and fluids she felt better and was discharged home. Symptoms thereafter continued to worsen with increasing abdominal distention, pain, loss of appetite and severe dehydration over the next 48 hours prompting her to present to the ER again. Initial work-up was consistent with acute renal failure/sinus tachycardia/hypertension elevated white count consistent with severe sepsis syndrome, endorgan dysfunction. Surgery was consulted. CT abdomen pelvis was ordered. Hospital service was consulted for management of medical issues while patient readmitted by surgery in light of postoperative symptoms requiring further evaluation. Patient was empirically started on Zosyn vancomycin and Levaquin after cultures were drawn. Tachycardia improved following administration of 2 L of crystalloids from 140s to 110 At the time of evaluation patient is alert and oriented. She was able to answer most of the questions endorse history as above. She endorses drenching sweats. She appears quite anxious and distressed. She denies headache photophobia, myalgia. She denies changes in her medications or diet. 02/22-patient clinically improved. NG tube decompression ongoing. Ongoing management per surgery. White count down from 15.5-7.3. Sodium improved from 1 27-1 33. Creatinine down from 2.1-1.2. Magnesium 1.3 on replacement. Blood sugars at goal. Urine WBC 18. On antibiotic coverage. 02/23-renal function normalized. White count normalized. NG-tube decompression ongoing. Sodium improved to 137. Potassium at 3 on replacement. Magnesium improved 1.8. Creatinine down to 0.6 from 2.1. Urine cultures negative so far 02/24-clinically improved. Discontinued NG decompression. On parenteral nutrition. Electrolytes improved potassium at 3.2. Calcium is 6.9 on replacement. Continue Abx. Continue management per surgery. Antibiotics DC'd. 02/25-patient doing remarkably well. No overnight events. Off NG tube. Started on oral medications and diet. TPN being weaned off per surgery. Denies abdominal pain. Complains of minimal back pain. In good spirits. Ongoing physical therapy. Potassium normalized. Calcium is 7. 02/26-patient doing remarkably better. No overnight events. No concerns per staff. No fever chills nausea vomiting. Tolerating diet. Off TPN. Tolerating medications. Will likely discharge soon once approved by surgery. Complains of right shoulder discomfort due to degenerative joint. Ongoing physical therapy. - Constitutional Vitals: Vital Signs Temp Pulse Resp BP Pulse Ox 97.6 F 72 18 156/90 95 02/27/20 07:54 02/27/20 07:54 02/27/20 07:54 02/27/20 07:54 02/27/20 07:54 Period Temp Pulse Resp BP Sys/Archuleta Pulse Ox Last 24 Hr 96.7 F-98.4 F 71-101 14-20 117-156/73-95 94-99 Intake and Output 02/26/20 02/27/20 02/27/20 21:59 05:59 13:59 Intake Total 3113.1417 1200 Output Total 2425 1425 Balance 688.1417 -225 Weight 211 lb 4.8 oz Intake & Output: Intake & Output 02/26/20 02/27/20 02/27/20 21:59 05:59 13:59 Intake Total 3113.1417 1200 Output Total 2425 1425 Balance 688.1417 -225 Weight 211 lb 4.8 oz Intake: IV 2633.1417 1000 Sodium Chloride 0.9% 1,000 ml @ 1000 100 mls/hr IV .Q10H MALENA Rx#: [id number] Calcium Gluconate 9.3 Meq In 0 Dextrose 5% in Water 50 ml @ 141.505 mls/hr IV DAILY MALENA Rx# :[id number] Calcium Gluconate 10 Meq 2113.1417 Magnesium Sulfate 32.48 Meq Sodium Chloride 80 Meq Potassium Chloride 80 Meq Infuvite Adult 10 ml Potassium Phosphate 60 Meq In Clinimix 5% -20% Solution 2,000 ml @ 85 mls /hr IV Q24H MALENA Rx#:[id number] Potassium Chloride 40 Meq In 520 Dextrose 5% in Water 500 ml @ 130 mls/hr IV UD PRN Rx#: [id number] Oral 480 200 Output: Void Amount 1925 975 Stool 500 450 Other: Meal Nourishment/Supplement Percent of Meal Consumed 100% Feeding Ability Independent Urine Appearance Clear Clear Urine Color Pale Bright Yellow Urine Odor Normal Stool Size Small Stool Color Brown Stool Consistency Liquid General appearance: no acute distress Exam: Alert oriented Nonlabored breathing Nondistended abdomen Medical - PN: Obj Da - Labs CBC & Chem 7: 02/27/20 05:10 02/27/20 05:10 Labs: Abnormal Lab Results 02/27/20 02/27/20 02/26/20 05:10 05:10 05:12 RBC 3.07 L Hgb 8.7 L Hct 27.3 L RDW 15.7 H RBC Morphology Anisocytosis Potassium Creatinine 0.5 L 0.5 L Glucose 200 H Uric Acid 1.9 L 1.4 L Calcium 7.2 L 7.0 L Lactate Dehydrogenase 263 H 312 H Total Protein 4.5 L 5.3 L Albumin 2.4 L 2.8 L Globulin 2.1 L Triglycerides 466 H 381 H 02/26/20 02/25/20 02/25/20 05:12 06:40 06:40 RBC Hgb 10.4 L 10.3 L Hct 33.5 L 32.0 L RDW 15.5 H 15.3 H RBC Morphology Abnorm A Anisocytosis Few A Potassium 3.2 L Creatinine Glucose 184 H Uric Acid 1.6 L Calcium 6.9 L Lactate Dehydrogenase 305 H Total Protein 5.4 L Albumin 3.0 L Globulin Triglycerides 338 H 02/24/20 05:15 RBC Hgb Hct RDW RBC Morphology Anisocytosis Potassium 3.0 L Creatinine Glucose 170 H Uric Acid Calcium 6.1 L Lactate Dehydrogenase Total Protein 4.6 L Albumin 2.4 L Globulin Triglycerides 276 H Meds: Medications Acetaminophen (Tylenol) 650 mg PO Q6HP PRN; Protocol PRN Reason: PAIN/FEVER > 101 Calcitriol (Rocaltrol) 0.5 mcg PO TID ON LICENSE OF [facility] Last Admin: 02/26/20 21:00 Dose: 0.5 mcg Documented by: Calcium Gluconate (Calcium Gluconate) 4.65 meq IV ONCE PRN PRN Reason: Calcium >7.2 Cyclobenzaprine HCl (Flexeril) 10 mg PO BIDP PRN PRN Reason: Spasms Last Admin: 02/26/20 20:58 Dose: 10 mg Documented by: Dextrose (Dextrose 50%) 0 ml IV UD PRN PRN Reason: Hypoglycemia Diagnostic Test (Pha) (Accu-Chek) 1 each FS ACHS ON LICENSE OF [facility] Last Admin: 02/27/20 07:44 Dose: 1 each Documented by: Diazepam (Valium) 5 mg IV Q6-8HP PRN PRN Reason: Muscle Spasm Docusate Sodium (Colace) 100 mg PO BID ON LICENSE OF [facility] Last Admin: 02/26/20 20:58 Dose: 100 mg Documented by: Duloxetine HCl (Cymbalta) 30 mg PO BID ON LICENSE OF [facility] Last Admin: 02/26/20 20:58 Dose: 30 mg Documented by: Erythromycin (Erythromycin) 250 mg PO QID ON LICENSE OF [facility]; Protocol Last Admin: 02/26/20 21:05 Dose: 250 mg Documented by: Gabapentin (Neurontin) 300 mg PO QID ON LICENSE OF [facility] Last Admin: 02/26/20 20:58 Dose: 300 mg Documented by: Glucose (Insta-Glucose) 15 gm PO PRN PRN PRN Reason: Hypoglycemia Heparin Sodium (Porcine) (Heparin) 5,000 unit SQ Q12 ON LICENSE OF [facility] Last Admin: 02/26/20 20:59 Dose: 5,000 unit Documented by: Hydromorphone HCl (Dilaudid) 0.5 mg IV Q2HP PRN; Protocol PRN Reason: Per Pain Protocol Last Admin: 02/27/20 00:13 Dose: 0.5 mg Documented by: Calcium Gluconate 9.3 meq/ (Dextrose) 70 mls @ 141.505 mls/hr IV DAILY ON LICENSE OF [facility] Last Infusion: 02/26/20 09:42 Dose: Infused Documented by: Potassium Chloride 40 meq/ (Dextrose) 520 mls @ 130 mls/hr IV UD PRN PRN Reason: K+ = or < 3.5 Magnesium Sulfate (Magnesium Sulfate) 2 gm in 50 mls @ 50 mls/hr IV UD PRN PRN Reason: MG = or < 1.7 Acetaminophen (Ofirmev) 650 mg in 65 mls @ 130 mls/hr IV Q6HP PRN; Protocol PRN Reason: Per Pain Protocol/Fever > 101 Last Admin: 02/27/20 07:33 Dose: 130 mls/hr Documented by: Insulin Glargine (Lantus) 5 unit SQ BID ON LICENSE OF [facility] Last Admin: 02/26/20 20:59 Dose: Not Given Documented by: Insulin Human Lispro (Humalog) 0 unit SQ [facility] ON LICENSE OF [facility]; Protocol Last Admin: 02/27/20 07:47 Dose: Not Given Documented by: Lactulose (Cephulac) 10 gm PO DAILYP PRN PRN Reason: Constipation [facility] Admin: 02/27/20 07:34 Dose: 250 mcg Documented by: Magnesium Hydroxide (Milk Of Magnesia) 30 ml PO BID ON LICENSE OF [facility] Last Admin: 02/26/20 20:57 Dose: 30 ml Documented by: Magnesium Oxide (Magnesium Oxide) 400 mg PO BID ON LICENSE OF [facility] Last Admin: 02/26/20 20:59 Dose: 400 mg Documented by: Metformin HCl (Glucophage) 500 mg PO [facility] Last Admin: 02/27/20 07:34 Dose: 500 mg Documented by: Ondansetron HCl (Zofran Odt) 4 mg SL Q4-6HP PRN; Protocol PRN Reason: Nausea And Vomiting Ondansetron HCl (Zofran) 4 mg IV Q4-6HP PRN; Protocol PRN Reason: Nausea And Vomiting Ondansetron HCl (Zofran Odt) 4 mg SL Q4HP PRN PRN Reason: Nausea Polyethylene Glycol (Miralax) 17 gm PO TID ON LICENSE OF [facility] Last Admin: 02/26/20 20:58 Dose: 17 gm Documented by: Prednisone (Prednisone) 20 mg PO [facility] Last Admin: 02/27/20 07:34 Dose: 20 mg Documented by: Promethazine HCl (Phenergan) 25 mg PO Q6HP PRN PRN Reason: Nausea Pyridostigmine Spivey (Regonol) 10 mg IM Q6H ON LICENSE OF [facility] Last Admin: 02/27/20 05:58 Dose: 10 mg Documented by: Senna (Senokot) 2 tab PO HSP PRN PRN Reason: Constipation Sodium Chloride (Saline Flush) 10 ml IV Q8 ON LICENSE OF [facility] Last Admin: 02/27/20 05:59 Dose: 10 ml Documented by: Tramadol HCl (Ultram) 50 - 100 mg PO Q4HP PRN; Protocol PRN Reason: Pain Medical - PN: A/P - Time Spent With Patient Total time spent is greater than 50% in coordination of care (as documented) at patient's floor/unit and/or counseling patient: 15 - 24 minutes (1) Severe sepsis Status: Acute Assessment and plan: * Recurrent bowel obstruction following recent intestinal obstruction/post exploratory laparotomy. Managed by surgery. NG discontinued Hospitalist consult for management of medical issues as below * Acute renal failure secondary to sepsis. Resolved * Abnormal electrolytes improving with aggressive replacement during potassium calcium and magnesium * DM type II- Blood sugars at goal on basal prandial insulin * Right shoulder degenerative joint pain improved on tramadol * Hypothyroidism continue oral thyroxine * anxiety disorder continuing home dose Cymbalta * History of panhypopituitarism * History of myasthenia gravis continue pyridostigmine/prednisone * Morbid obesity -gradual improvement in weight with BMI down from 40-36 over the last month. Continue frequent turning/nutrition and dietary intervention/decubitus precautions * History of obstructive sleep apnea not on CPAP due to increased air insufflation causing abdominal discomfort * Neuropathy on gabapentin * Full code * Prophylax Heparin Plan * Discharge planning per surgery * recommend continuing oral home medications * Diet advancement per surgery * PT OT Current Visit: Yes Medical - PN: Qual - VTE Deep Vein Thrombosis/Pulmonary Embolism Present on Admission: No
[2020-02-27 08:43] LABS: Eosinophils % (Manual) 4 % (0-7); Lymphocytes % 31 % (15-49); Monocytes % (Manual) 6 % (1-12); Platelet Estimate NORMAL (NORMAL); RBC Morphology NORMAL (NORMAL); Segmented Neutrophils % 59 % (38-78)
[2020-02-27] MEDS: MAGNESIUM HYDROXIDE 30 ML ORAL.SUSP PO SCH (08:55)
[2020-02-27] MEDS: POLYETHYLENE GLYCOL 3350 17 GM PACKET PO SCH ×2 (08:55→14:59)
[2020-02-27] MEDS: ERYTHROMYCIN BASE 250 MG TABLET PO SCH ×2 (08:56→13:10)
[2020-02-27] MEDS: INSULIN GLARGINE, HUMAN 1 UNIT/0.01 ML SQ SCH (08:56)
[2020-02-27] MEDS: HEPARIN 5,000 UNIT/ML VIAL SQ SCH (08:56)
[2020-02-27] MEDS: CALCITRIOL 0.25 MCG CAPSULE PO SCH ×2 (08:57→14:59)
[2020-02-27] MEDS: GABAPENTIN 300 MG CAPSULE PO SCH ×2 (08:57→13:10)
[2020-02-27] MEDS: MAGNESIUM OXIDE 400 MG TABLET PO SCH (08:57)
[2020-02-27] MEDS: DOCUSATE SODIUM 100 MG CAPSULE PO SCH (08:57)
[2020-02-27] MEDS: CYCLOBENZAPRINE 10 MG TABLET PO PRN (08:58)
[2020-02-27] MEDS: DULoxetine 30 MG CAPSULE PO SCH (08:58)
[2020-02-27] MEDS: CALCIUM GLUCONATE 9.3 MEQ in DEXTROSE 5% IN WATER 50 ML IV SCH (09:03)
--- NOTE | 2020-02-27 13:16 | Discharge Summary ---
Providers - Providers Patient information: Note initiated : 02/27/20 at 1:10 pm Service Date, if different from initiated Date: [] Patient: Dayanna Guo 59 y/o F admitted on 02/22/20 for nausea and vomiting. 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 She was recently operated on January 31 with extensive adhesion lysis. She was discharged home on . At the time of discharge she was tolerating a regular diet and her abdominal x-rays showed a small amount of gas in her mid gut but otherwise her bowel was decompressed. She started having increasing nausea and abdominal distention 5 days prior to readmission. She had continued output through her stoma had increasing episodes of nausea vomiting. She also had muscle spasm and dizziness. She was seen in the emergency room 19 february and was thought to have gastroenteritis and was treated symptomatically and released. She had continued nausea with vomiting though she had good output through her stoma. She presented with leukocytosis with white count of 15,500. She had acidosis with lactic acid of 3.7 and she was dehydrated with a BUN of 23. She denies having abdominal pain. I asked for consultation by hospitalist and their concern was that she had sepsis so she was treated with triple antibiotics and Diflucan. She did have severe vulvovaginitis. Abdominal x-rays revealed her proximal bowel to be significantly dilated biliary distal bowel was not quite severe. She was admitted and started on nasogastric suction. She she was continued on antibiotics and treated symptomatically with analgesics and antiemetics. She was placed back on pyridostigmine IM every 6 hours. The patient gradually improved. Her small bowel distention improved. A small bowel follow-through was done on 23 february and this showed small bowel transit 3 hours. By 24 february she had 1600 cc output through her stoma and the she had resolution of symptoms. She had 1800 cc output through her stoma on the . She has continued to do well. Her white blood count is 5.2. Her serum calcium is 7.2. Serum potassium is 3.9. BUN is down to 13 and creatinine is normal at 0.5. Patient is clinically stable at this time and is discharged home. She will receive 7 days of oral Diflucan. There is no positive cultures/antibiotics will not be continued. She will be given Ultram for pain. She is discharged home in much improved condition. Discharge diagnosis: severe dehydration Secondary discharge diagnosis: Partial intestinal obstruction with nausea and vomiting Lactic acidosis resolved. Diabetes mellitus type 2 uncontrolled. Primary chronic pseudoobstruction of small intestines. Hypertension Myasthenia gravis Obstructive sleep apnea Polyglandular autoimmune syndrome Reason for admission: abdominal pain nausea vomiting and dehydration Procedures: None Pertinent studies/significant findings: CT of abdomen and pelvis with IV contrast Single contrast small bowel follow-through Complications: None Exam Temp Pulse Resp BP Pulse Ox 98.4 F 91 H 20 130/68 98 02/27/20 12:00 02/27/20 12:02/27/20 12:02/27/20 12:02/27/20 12:00 - General physical appearance well developed, well nourished, no distress - Eyes PERRL, normal ocular movement - ENT normal pinna, normal nares, normal mucosa, no hearing loss, no congestion - Head Head exam IM: Present: atraumatic, normocephalic - Neck no masses, no bruits, trachea midline, no lymphadenopathy, no venous distension - Cardiovascular Cardiovascular exam IM: Present: normal rate and rhythm - Respiratory normal expansion, normal respiratory effort, clear to percussion, clear to auscultation - Abdomen Abdomen: Present: soft, non tender (abdominal exam is benign. She does not have tenderness. She has good active bowel sounds. Her stoma is functioning normally.), bowel sounds Hernia: Present: none - Genitourinary Present: normal external genitalia - Integumentary Present: no rash, no growths, no abnormal pigmentation - Neurologic Present: normal coordination, normal sensation - Musculoskeletal Present: normal gait, normal posture - Psychiatric Present: oriented to time, oriented to person, oriented to place, speech is normal, memory intact Discharge Plan - Patient/Caregiver Discharge Instructions Activity: increase activity as tolerated Diet: Regular Diet Additional Instructions: Continue MiraLAX with juice 3 times daily Continue milk of magnesia 30 cc 2-3 times daily Prescriptions: RX: traMADol [Ultram] 100 mg PO Q6HP PRN #60 tab PRN Reason: Pain Transmission Status: Received by [facility] - Follow up Plan Follow up with: Doulgas Haque MD [Primary Care Provider] - Disposition: Home, Self-Care Prognosis: Good Rehab Potential: Good I certify that the patient requires SNF services.: No Overall status at discharge: patient is back to baseline Pending Studies Resuscitation Status Full Code Diet Regular Diet Start SatFebruary 25 1211 Calcitriol (Rocaltrol) 0.5 mcg PO TID [facility] Last Admin: 02/27/20 08:57 Dose: 0.5 mcg Documented by: Admin: 02/26/20 21:00 Dose: 0.5 mcg Documented by: Admin: 02/26/20 14:54 Dose: 0.5 mcg Documented by: Admin: 02/26/20 08:32 Dose: 0.5 mcg Documented by: Admin: 02/25/20 20:49 Dose: 0.5 mcg Documented by: Admin: 02/25/20 15:51 Dose: 0.5 mcg Documented by: MIKE Cyclobenzaprine HCl (Flexeril) 10 mg PO BIDP PRN PRN Reason: Spasms Last Admin: 02/27/20 08:58 Dose: 10 mg Documented by: Admin: 02/26/20 20:58 Dose: 10 mg Documented by: ROBERT Diagnostic Test (Pha) (Accu-Chek) 1 each FS ACHS [facility] Last Admin: 02/27/20 11:12 Dose: 1 each Documented by: Admin: 02/27/20 07:44 Dose: 1 each Documented by: Admin: 02/26/20 21:00 Dose: 1 each Documented by: Admin: 02/26/20 16:58 Dose: 1 each Documented by: Admin: 02/26/20 11:57 Dose: 1 each Documented by: Admin: 02/26/20 08:28 Dose: 1 each Documented by: Admin: 02/25/20 21:01 Dose: 1 each Documented by: Admin: 02/25/20 17:28 Dose: 1 each Documented by: MIKE Docusate Sodium (Colace) 100 mg PO BID [facility] Last Admin: 02/27/20 08:57 Dose: 100 mg Documented by: Admin: 02/26/20 20:58 Dose: 100 mg Documented by: Admin: 02/26/20 08:30 Dose: 100 mg Documented by: Admin: 02/25/20 20:48 Dose: 100 mg Documented by: DMITRIY Duloxetine HCl (Cymbalta) 30 mg PO BID [facility] Last Admin: 02/27/20 08:58 Dose: 30 mg Documented by: Admin: 02/26/20 20:58 Dose: 30 mg Documented by: Admin: 02/26/20 08:30 Dose: 30 mg Documented by: Admin: 02/25/20 20:49 Dose: 30 mg Documented by: DMITRIY Erythromycin (Erythromycin) 250 mg PO QID [facility]; Protocol Last Admin: 02/27/20 08:56 Dose: 250 mg Documented by: Admin: 02/26/20 21:05 Dose: 250 mg Documented by: Admin: 02/26/20 16:58 Dose: 250 mg Documented by: Admin: 02/26/20 13:01 Dose: 250 mg Documented by: Admin: 02/26/20 08:30 Dose: 250 mg Documented by: Admin: 02/25/20 20:48 Dose: 250 mg Documented by: Admin: 02/25/20 17:48 Dose: 250 mg Documented by: MIKE Gabapentin (Neurontin) 300 mg PO QID [facility] Last Admin: 02/27/20 08:57 Dose: 300 mg Documented by: Admin: 02/26/20 20:58 Dose: 300 mg Documented by: Admin: 02/26/20 16:59 Dose: 300 mg Documented by: Admin: 02/26/20 13:00 Dose: 300 mg Documented by: Admin: 02/26/20 08:32 Dose: 300 mg Documented by: Admin: 02/25/20 20:49 Dose: 300 mg Documented by: Admin: 02/25/20 17:48 Dose: 300 mg Documented by: MIKE Heparin Sodium (Porcine) (Heparin) 5,000 unit SQ Q12 [facility] Last Admin: 02/27/20 08:56 Dose: 5,000 unit Documented by: Admin: 02/26/20 20:59 Dose: 5,000 unit Documented by: Admin: 02/26/20 08:31 Dose: 5,000 unit Documented by: Admin: 02/25/20 20:46 Dose: 5,000 unit Documented by: DMITRIY Hydromorphone HCl (Dilaudid) 0.5 mg IV Q2HP PRN; Protocol PRN Reason: Per Pain Protocol Last Admin: 02/27/20 00:13 Dose: 0.5 mg Documented by: Admin: 02/26/20 17:19 Dose: 0.5 mg Documented by: Admin: 02/26/20 14:55 Dose: 0.5 mg Documented by: Admin: 02/26/20 11:58 Dose: 0.5 mg Documented by: Admin: 02/26/20 10:20 Dose: 0.5 mg Documented by: Admin: 02/26/20 08:33 Dose: 0.5 mg Documented by: Admin: 02/26/20 05:53 Dose: 0.5 mg Documented by: Admin: 02/26/20 03:31 Dose: 0.5 mg Documented by: Admin: 02/26/20 01:25 Dose: 0.5 mg Documented by: Admin: 02/25/20 23:06 Dose: 0.5 mg Documented by: Admin: 02/25/20 20:49 Dose: 0.5 mg Documented by: Admin: 02/25/20 17:58 Dose: 0.5 mg Documented by: Admin: 02/25/20 15:51 Dose: 0.5 mg Documented by: MIKE Calcium Gluconate 9.3 meq/ (Dextrose) 70 mls @ 141.505 mls/hr IV DAILY [facility] Last Admin: 02/27/20 09:03 Dose: 141.505 mls/hr Documented by: Infusion: 02/26/20 09:42 Dose: 0 mls/hr Documented by: Admin: 02/26/20 08:29 Dose: 141.505 mls/hr Documented by: AIRAM Magnesium Sulfate (Magnesium Sulfate) 2 gm in 50 mls @ 50 mls/hr IV UD PRN PRN Reason: MG = or < 1.7 Last Admin: 02/27/20 08:55 Dose: 50 mls/hr Documented by: BETSY Acetaminophen (Ofirmev) 650 mg in 65 mls @ 130 mls/hr IV Q6HP PRN; Protocol PRN Reason: Per Pain Protocol/Fever > 101 Last Infusion: 02/27/20 08:05 Dose: 0 mls/hr Documented by: Admin: 02/27/20 07:33 Dose: 130 mls/hr Documented by: BETSY Insulin Glargine (Lantus) 5 unit SQ BID [facility] Last Admin: 02/27/20 08:56 Dose: 5 units Documented by: Admin: 02/26/20 20:59 Dose: Not Given Documented by: Admin: 02/26/20 08:32 Dose: 5 units Documented by: Admin: 02/25/20 21:07 Dose: Not Given Documented by: DMITRIY Insulin Human Lispro (Humalog) 0 unit SQ ACHS [facility]; Protocol Last Admin: 02/27/20 12:02 Dose: 1 units Documented by: Admin: 02/27/20 07:47 Dose: Not Given Documented by: Admin: 02/26/20 20:59 Dose: Not Given Documented by: Admin: 02/26/20 16:59 Dose: 2 units Documented by: Admin: 02/26/20 11:57 Dose: 4 units Documented by: Admin: 02/26/20 08:29 Dose: Not Given Documented by: Admin: 02/25/20 21:05 Dose: 2 units Documented by: Admin: 02/25/20 17:48 Dose: 2 units Documented by: MIKE Levothyroxine Sodium (Synthroid) 250 mcg PO QAMAC [facility] Last Admin: 02/27/20 07:34 Dose: 250 mcg Documented by: BETSY Magnesium Hydroxide (Milk Of Magnesia) 30 ml PO BID [facility] Last Admin: 02/27/20 08:55 Dose: 30 ml Documented by: Admin: 02/26/20 20:57 Dose: 30 ml Documented by: Admin: 02/26/20 08:31 Dose: 30 ml Documented by: Admin: 02/25/20 20:49 Dose: 30 ml Documented by: DMITRIY Magnesium Oxide (Magnesium Oxide) 400 mg PO BID [facility] Last Admin: 02/27/20 08:57 Dose: 400 mg Documented by: Admin: 02/26/20 20:59 Dose: 400 mg Documented by: ROBERT Metformin HCl (Glucophage) 500 mg PO [facility] Last Admin: 02/27/20 07:34 Dose: 500 mg Documented by: BETSY Polyethylene Glycol (Miralax) 17 gm PO TID [facility] Last Admin: 02/27/20 08:55 Dose: 17 gm Documented by: Admin: 02/26/20 20:58 Dose: 17 gm Documented by: Admin: 02/26/20 14:54 Dose: 17 gm Documented by: Admin: 02/26/20 08:32 Dose: 17 gm Documented by: Admin: 02/25/20 20:49 Dose: 17 gm Documented by: Admin: 02/25/20 15:50 Dose: 17 gm Documented by: MIKE Prednisone (Prednisone) 20 mg PO [facility] Last Admin: 02/27/20 07:34 Dose: 20 mg Documented by: BETSY Pyridostigmine Cornish (Regonol) 10 mg IM Q6H [facility] Last Admin: 02/27/20 12:09 Dose: 10 mg Documented by: Admin: 02/27/20 05:58 Dose: 10 mg Documented by: Admin: 02/27/20 00:13 Dose: 10 mg Documented by: Admin: 02/26/20 17:03 Dose: 10 mg Documented by: Admin: 02/26/20 11:58 Dose: 10 mg Documented by: Admin: 02/26/20 05:53 Dose: 10 mg Documented by: Admin: 02/25/20 23:58 Dose: 10 mg Documented by: Admin: 02/25/20 17:49 Dose: 10 mg Documented by: MIKE Sodium Chloride (Saline Flush) 10 ml IV Q8 [facility] Last Admin: 02/27/20 05:59 Dose: 10 ml Documented by: Admin: 02/26/20 21:00 Dose: 10 ml Documented by: Admin: 02/26/20 13:01 Dose: 10 ml Documented by: Admin: 02/26/20 05:54 Dose: Not Given Documented by: Admin: 02/25/20 20:50 Dose: Not Given Documented by: DMITRIY Tramadol HCl (Ultram) 50 - 100 mg PO Q4HP PRN; Protocol PRN Reason: Pain Last Admin: 02/27/20 11:02 Dose: 100 mg Documented by: HWIDENER Shift Summary 02/27/20 04:04 Shift Summary by Gilda Martinez medical status, A&OX4, VSS, RA, voiding per BSC, empties ileostomy on own- we empty canister, 22g RW SL, portacath left chest infusing NS at 100mls/hr, medicated with tramadol 50mg Q6H and Flexeril at HS, given Dilaudid 0.5mg IV x1 for chronic shoulder pain, pt teaching provided of need to refrain from Dilaudid D/T going home today and medication is unavailable at home, pt agreed, warm pack to rt. shoulder given with some pain relief, ABD Xray ordered this AM, unsure of DISCHARGE time today Initialized on 02/27/20 04:04 - END OF NOTE
--- NOTE | 2020-02-27 13:43 | XRay Report ---
CLINICAL INFORMATION: FOLLOW -UP OF SMALL BOWEL OBSTRUCTION COMPARISON: 02/26/2020 FINDINGS: The stool gas pattern is now unremarkable. There is no free air, soft tissue mass, organomegaly or pathologic calcification. IMPRESSION: Complete resolution in the distal small bowel obstruction pattern. Normal exam Interpreted and Authenticated by: All Lundberg 02/27/20
[2020-02-27] MEDS ORDERED: FAT EMULSION 20% 250 ML IV SCH (16:00)
== END 2020-02-27 15:30 | disposition home or self-care (01) | DRG 872 ==
LOC: ED 03:24 → ICU 09:48
PROVIDERS: ADMIT Family Medicine Adult Medicine; ATTEND Family Medicine Adult Medicine

== ENCOUNTER 2020-05-06 23:30 | Inpatient (IN) ==
[2020-05-06] MEDS ORDERED: ONDANSETRON 4 MG/2 ML VIAL IV ONE (23:52)
[2020-05-06] MEDS ORDERED: 0.9 % SODIUM CHLORIDE 1,000 ML IV ONE (23:52)
[2020-05-06] MEDS ORDERED: morphine 2 MG/ML VIAL IV ONE (23:52)
[2020-05-07 00:09] LABS: POC Blood Urea Nitrogen 25 mg/dl (6-20); POC CO2 29 mmol/L (22-30); POC Chloride 100 mmol/L (96-108); POC Creatinine 0.7 mg/dl (0.6-1.1); POC Glucose, Random 204 mg/dL (70-105); POC Potassium 3.8 mmol/L (3.3-5.1); POC Sodium 139 mmol/L (133-145)
--- NOTE | 2020-05-07 00:15 | Emergency Department Note ---
Abdominal Pain HPI General Chief Complaint: Abdominal Pain Stated Complaint: Abdominal pain Time Seen by Provider: 05/06/20 23:48 Source: patient Mode of arrival: wheelchair Limitations: no limitations History of Present Illness HPI Narrative: Narrative: 59-year old patient presenting to the [facility] emergency department with a chief complaint of abdominal pain. Patient reports the pain is acute on chronic. Patient has had symptoms for about 5 hours at this point in time patient gets this issue intermittently last discharge was about 10 weeks ago. Patient noting pain is cramping primarily. Patient reporti ng pain is moderate to severe. Patient with exacerbating factors of time. Patient with ameliorating factors of normally very and helps some but this time currently Phenergan did not help so she came in. Patient with associated symptoms of nausea bloated sensation. Patient without associated symptoms of nausea, vomiting, diarrhea, decreased appetite, fever, blood in stool, hematemesis, constipation, dysuria, frequency, hematuria, weight loss, cough, shortness of breath, orthopnea, exertional component. Related Data Home Medications Medication Instructions Recorded Confirmed duloxetine 30 mg PO BID 11/30/16 05/07/20 levothyroxine 250 mcg PO QAMAC 08/20/17 05/07/20 calcitriol 0.5 mcg PO TID 02/11/19 05/07/20 insulin glargine 10 unit SQ BID 09/30/19 05/07/20 cyclobenzaprine 10 mg PO BIDP PRN 12/13/19 05/07/20 magnesium oxide 500 mg PO BID 12/13/19 05/07/20 ondansetron 4 mg SL Q4HP PRN 12/24/19 05/07/20 promethazine 25 mg MA Q6HP PRN 12/24/19 05/07/20 Previous Rx's Medication Instructions Recorded prednisone 20 mg PO QAMCC #4 tab 05/18/16 metformin 500 mg PO DAILY #30 tab 10/17/18 promethazine 25 mg PO Q6HP PRN #60 tab 02/13/19 acetaminophen 650 mg PO Q6HP PRN tab 10/05/19 Accu-Chek 1 each FS ACHS strip 12/03/19 pyridostigmine bromide 5 mg/mL 10 mg IM Q6H #240 ml 01/04/20 injection solution filter needles 19 x 1 1/2" #100 each 04/06/20 syringe with needle, safety 3 mL #100 each 04/12/20 25 gauge x 1" gabapentin 300 mg capsule 300 mg PO QID #120 cap 04/25/20 Allergies Allergy/AdvReac Type Severity Reaction Status Date / Time Sulfa (Sulfonamide Allergy Severe Anaphylaxis Verified 05/06/20 23:30 Antibiotics) adhesive tape AdvReac Mild Blister Verified 05/06/20 23:30 metoclopramide [From Reglan] AdvReac Mild Anxiety Verified 05/06/20 23:30 steri strips AdvReac Mild Blister Uncoded 12/02/19 06:48 Review of Systems ROS ROS Narrative: Narrative: All systems ED: reviewed and negative except as stated. [facility] Narrative Patient History Narrative: Narrative: Medical/Surgical/Family History All Active Problems (Updated 05/07/20 @ 08:04 by Chase Guidry MD) Hyponatremia (Acute) Elevated LFTs (Acute) Small bowel obstruction (Acute) Dehydration (Acute) Primary chronic pseudo-obstruction of small intestine (Acute) UTI (urinary tract infection) (Acute) Hypocalcemia (Acute) Nausea & vomiting (Acute) Severe sepsis (Acute) 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 (Acute) Chronic, continuous use of opioids (Chronic) Myasthenia gravis (Chronic) Chronic intestinal pseudo-obstruction (Chronic) Recurrent intestinal obstruction (Chronic) Diabetes mellitus type 2, uncontrolled (Chronic) LA (obstructive sleep apnea) (Chronic) Hypertension (Chronic) Obesity, Class II, BMI 35-39.9 (Chronic) Low blood magnesium level (Chronic) Abdominal pain (Chronic) Chronic use of steroids (Chronic) Abnormal liver enzymes (Chronic) Hypothyroidism (Chronic) Sarcoidosis (Chronic) Polyglandular autoimmune syndrome (Chronic) Recurrent abdominal pain (Chronic) Medical History (Updated 05/07/20 @ 08:04 by Chase Guidry MD) Abdominal pain (Resolved) Abdominal pain (Chronic) Abdominal wound dehiscence (Resolved) Abnormal liver enzymes (Chronic) Achalasia and cardiospasm (Resolved) Acute respiratory insufficiency (Resolved) Adverse reaction to drug (Resolved) Anaphylaxis (Resolved) Bowel obstruction (Resolved) 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) Chronic use of steroids (Chronic) for myasthenia gravis; 10+ years Chronic, continuous use of opioids (Chronic) Constipation due to neurogenic bowel (Resolved) Constipation due to pain medication therapy (Resolved) Dehydration (Resolved) Dehydration (Resolved) Diabetes mellitus type 2, uncontrolled (Chronic) Encounter for care related to Port-a-Cath (Resolved) Fecal impaction (Resolved) Foot sprain (Resolved) Hypercalcemia (Resolved) Hypertension (Chronic) Hypocalcemia (Resolved) Hyponatremia (Resolved) Hypothyroidism (Chronic) Ileus (Resolved) Infiltrate of lung present on imaging of chest (Resolved) Intractable vomiting (Resolved) Lactic acid acidosis (Resolved) Low blood magnesium level (Chronic) Myasthenia gravis (Chronic) Nausea (Resolved) Nausea & vomiting (Resolved) Nausea & vomiting (Resolved) Nausea and vomiting (Resolved) Obesity, Class II, BMI 35-39.9 (Chronic) Obstruction of descending colon (Resolved) LA (obstructive sleep apnea) (Chronic) Pancreatitis (Resolved) Parastomal hernia with obstruction, without gangrene (Resolved) Partial intestinal obstruction, unspecified as to cause (Resolved) Partial small bowel obstruction (Resolved) Pneumonia (Resolved) 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) Pseudoobstruction of colon (Resolved) Pyelonephritis (Resolved) Recurrent abdominal pain (Chronic) Recurrent intestinal obstruction (Chronic) many recurrences; many surgical interventions Sarcoidosis (Chronic) Sepsis (Resolved) Sepsis associated hypotension (Resolved) Sepsis with acute hypoxic respiratory failure (Resolved) Severe sepsis (Resolved) Sigmoid volvulus (Resolved) Sinus tachycardia (Resolved) Sinus tachycardia (Resolved) Small bowel obstruction (Resolved) Small bowel obstruction (Resolved) Small bowel obstruction (Resolved) Small bowel obstruction (Resolved) Small bowel obstruction (Resolved) Small bowel obstruction (Resolved) Small bowel obstruction due to adhesions (Resolved) Small bowel obstruction due to postoperative adhesions (Resolved) Small bowel obstruction, partial (Resolved) Supraventricular tachycardia (Resolved) UTI (urinary tract infection) (Resolved) UTI (urinary tract infection) (Resolved) Volvulus of sigmoid colon (Resolved) Surgical History History of exploratory laparotomy (Acute) 10/17/2017-with adhesiolysis History of exploratory laparotomy (Acute) 12/01/2017-with adhesiolysis History of exploratory laparotomy (Acute) 07/18/2018 History of exploratory laparotomy (Acute) 08/10/2018-Exploratory laparotomy with small bowel adhesiolysis and incisional hernia repair with mesh graft S/P ileostomy (Resolved) Family History Father CAD (coronary artery disease) Mother CAD (coronary artery disease) Grandfather CVA (cerebral vascular accident) Grandmother CVA (cerebral vascular accident) Social History Smoking Status: Former smoker Exam Narrative Narrative: Narrative: Vital signs are assessed for evidence of hemodynamic instability. General: Alert, interactive, appropriate Head: Atraumatic, normocephalic Eyes: Extraocular movements intact, sclera anicteric, no conjunctival injection Ears: Pinnae normal, no discharge Mouth: Oral mucosa moist, no acute swelling or evidence of infection Nares: No nasal discharge, patent bilaterally Neck: Trachea midline, full range of motion Chest: Symmetrical chest wall rise, breathing normally; nonlabored respirations Abdomen: Patient primarily tenderness to the abdomen diffusely, patient without exam suggestive of peritonitis, slightly distended Cardiovascular: Patient with excellent perfusion to the extremities; without bradycardia; patient is noted to be tachycardic and hypertensive Skin: Patient without area of erythema, patient is without rash, no ascending lymphangitis or lymphadenopathy Extremities: Full range of motion joints, no obvious deformities Neuro: Alert, oriented x3, cranial nerves II through XII grossly intact, patient without lateralizing findings such as weakness, or abnormal reflexes Psychiatric: Normal affect, normal mood General Limitations: no limitations Course Vital Signs Vital signs: Vital Signs Temperature 97.9 F 05/06/20 23:31 Pulse Rate 140 H 05/06/20 23:31 Respiratory Rate 22 05/06/20 23:31 Blood Pressure 177/124 05/06/20 23:31 Pulse Oximetry (%) 97 05/06/20 23:31 Temperature 97.7 F 05/07/20 07:20 Pulse Rate 122 H 05/07/20 07:20 Respiratory Rate 16 05/07/20 07:20 Blood Pressure 157/96 05/07/20 07:20 Pulse Oximetry (%) 95 05/07/20 07:20 [facility] MDM Narrative Medical decision making narrative: Narrative: 59-year-old female presenting with a chief complaint of bloating nausea vomiting with history of colonic pseudoobstruction multiple multiple surgeries for lysis of adhesions and resections. Patient on presentation noted to be hypertensive and tachycardic. Routine management for her is CT scan as well as basic laboratories with likely admission for obstruction of her bowel. Patient symptoms are treated with Zofran, Toradol, morphine and Dilaudid as well for pain. ED CAT scan did demonstrate bowel obstruction and conversation with Dr. Currie patient was admitted to the hospital for this issue. Patient reports she has not been admitted other facilities since her last discharge here. Lab Data Result diagrams: 05/06/20 00:00 05/06/20 00:00 Labs: Lab Results 05/06/20 05/06/20 Range/Units 00:00 00:00 WBC 11.9 H (4.50-11.00) K/mcL RBC 4.86 (3.59-5.38) M/mcL Hgb 13.7 (11.2-15.7) g/dL Hct 43.7 (34.1-44.9) % POC Hct 43.0 (36.0-48.0) % MCV 89.9 (80.0-100.0) fL MCH 28.2 (26.0-34.0) pg MCHC 31.4 (31.0-36.0) g/dL RDW 14.4 (11.5-14.5) % Plt Count 338 (140-440) K/mcL MPV 9.6 (7.4-10.4) fL Gran % 63.5 (38.0-78.0) % Lymph % (Auto) 26.1 (15.5-49.0) % [place] % (Auto) 8.2 (1.0-12.0) % Eos % (Auto) 1.4 (0.0-7.0) % Baso % (Auto) 0.8 (0.0-2.0) % Gran # 7.55 (1.80-8.00) K/mcL Lymph # (Auto) 3.10 (1.50-4.80) K/mcL [place] # (Auto) 0.97 H (0.10-0.90) K/mcL Eos # (Auto) 0.17 (0.00-0.70) K/mcL Baso # (Auto) 0.09 (0.00-0.30) K/mcL POC Sodium 139 (133-145) mmol/L Sodium 138 (133-145) mmol/L POC Potassium 3.8 (3.3-5.1) mmol/L Potassium 3.8 (3.3-5.1) mmol/L POC Chloride 100 (96-108) mmol/L Chloride 95 L (96-108) mmol/L Carbon Dioxide 26 (22-30) mmol/L POC Total CO2 29 (22-30) mmol/L Anion Gap 17.0 H (8-16) POC BUN 25 H (6-20) mg/dl BUN 23 H (6-20) mg/dl Creatinine 0.9 (0.6-1.1) mg/dl POC Creatinine 0.7 (0.6-1.1) mg/dl GFR Calculation 70 Glucose 204 H (70-105) mg/dL POC Glucose 204 H (70-105) mg/dL Calcium 10.6 H (8.6-10.4) mg/dl POC WB Ioniz Calcium 1.30 (1.16-1.32) mmol/L Total Bilirubin 0.2 (0.0-1.0) mg/dL AST 15 (0-37) U/l ALT 23 (0-40) U/l Alkaline Phosphatase 86 (39-117) U/L Total Protein 7.1 (5.9-8.4) gm/dL Albumin 4.0 (3.2-5.2) gm/dL Globulin 3.1 (2.2-3.7) gm/dL Albumin/Globulin Ratio 1.3 (1.0-2.3) Lipase 31 (7-60) U/L Discharge Plan Patient/Caregiver Discharge Instructions Pt seen by LOGISTICS TEAM LEAD/PA only: No Clinical Impression: 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 Patient Disposition: Xfer As Inpt ([facility]) Discharge Date/Time: 05/07/20 02:34
[2020-05-07] MEDS ORDERED: IOPAMIDOL 100 ML BOTTLE IV ONE (00:37)
[2020-05-07 00:50] LABS: Basophils # (Auto) 0.09 K/mcL (0.00-0.30); Basophils % (Auto) 0.8 % (0.0-2.0); Eosinophils # (Auto) 0.17 K/mcL (0.00-0.70); Eosinophils % (Auto) 1.4 % (0.0-7.0); Granulocytes % (Auto) 63.5 % (38.0-78.0); Hematocrit 43.7 % (34.1-44.9); Hemoglobin 13.7 g/dL (11.2-15.7); Lymphocytes % (Auto) 26.1 % (15.5-49.0); Mean Cell Volume 89.9 fL (80.0-100.0); Mean Corpuscular HGB Conc 31.4 g/dL (31.0-36.0); Mean Platelet Volume 9.6 fL (7.4-10.4); Monocytes # (Auto) 0.97 K/mcL (0.10-0.90); Monocytes % (Auto) 8.2 % (1.0-12.0); Platelet Count 338 K/mcL (140-440); RBC 4.86 M/mcL (3.59-5.38); Red Cell Distribution Width 14.4 % (11.5-14.5); WBC 11.9 K/mcL (4.50-11.00)
[2020-05-07] MEDS: morphine 2 MG/ML VIAL IV PRN ×2 (01:04→01:53)
[2020-05-07 01:05] LABS: ALT/SGPT 23 U/l (0-40); AST/SGOT 15 U/l (0-37); Albumin/Globulin Ratio 1.3 (1.0-2.3); Alkaline Phosphatase 86 U/L (39-117); Bilirubin,Total 0.2 mg/dL (0.0-1.0); Blood Urea Nitrogen 23 mg/dl (6-20); Calcium 10.6 mg/dl (8.6-10.4); Carbon Dioxide 26 mmol/L (22-30); Globulin 3.1 gm/dL (2.2-3.7); Glomerular Filtration Rate 70; Glucose 204 mg/dL (70-105)
[2020-05-07 01:06] LABS: Chloride 95 mmol/L (96-108)
[2020-05-07] MEDS: 0.9 % SODIUM CHLORIDE 1,000 ML IV SCH ×3 (02:39→17:44)
[2020-05-07] MEDS: HYDROmorphone 0.5 MG/0.5 ML SYRINGE IV PRN ×6 (03:29→22:08)
[2020-05-07] MEDS: 0.9 % SODIUM CHLORIDE 10 ML SYRINGE IV SCH ×3 (04:12→22:09)
[2020-05-07] MEDS: ONDANSETRON 4 MG/2 ML VIAL IV PRN ×3 (08:08→22:09)
[2020-05-07] MEDS: DOCUSATE SODIUM 100 MG CAPSULE PO SCH ×2 (08:33→22:08)
--- NOTE | 2020-05-07 09:51 | Cat Scan Report ---
History: Abdominal pain status post prior colon resection. TECHNIQUE: The patient was imaged following intravenous but no oral contrast scanning during the portal venous phase from the lung base through the symphysis pubis. Sagittal and coronal reformats were created. The radiation exposure was limited using dose reduction technology. FINDINGS: There are several bands of scar atelectasis in both lung bases. No pleural effusion is present. Distal esophagus is mildly distended with fluid. The liver and spleen are normal in size and homogeneous. The gallbladder has been removed. Common bile duct measures up to 1 cm. Caliber of the duct has remained stable since prior CT done on 02/22/20. There is fatty infiltration of the pancreas. The adrenals and kidneys are normal. Aorta is normal in caliber. The stomach and small intestine are abnormally distended and contain multiple air-fluid levels. Small intestine measures up to 5.5 cm in diameter. The entire colon has been removed. Patient still has a distal sigmoid and rectum which contain some fecal material. There is an ostomy in the anterior right abdominal wall with herniation of loops of small intestine into the stoma. Behind the stoma within the intraperitoneal cavity there are few loops of nondilated small intestine. A transition point is not clearly identified but appears to be in the general vicinity of the ostomy. The caliber of the small intestine is smaller today than it was on 02/22/20. No free intra-abdominal air or free fluid are present. There is no evidence of an abscess. Urinary bladder is unopacified but appears normal. Uterus and ovaries are atrophic.. There is chronic grade 2 spondylolisthesis with disc degeneration at L4-5. IMPRESSION: Recurrent distal small bowel obstruction. The obstruction point is in the general vicinity of the ostomy, in the anterior abdominal wall Interpreted and Authenticated by: Zay Juarez 05/07/20
[2020-05-07] MEDS: INSULIN LISPRO 1 UNIT/0.01 ML UNIT SQ SCH ×2 (13:13→17:54)
[2020-05-07] MEDS ORDERED: LORazepam 2 MG/ML VIAL IV PRN (14:18)
[2020-05-07] MEDS ORDERED: PROMETHAZINE 25 MG/ML VIAL IV PRN (14:32)
--- NOTE | 2020-05-07 15:02 | General Surg History&Physical ---
HPI History of Present Illness Patient information: Note initiated : 05/07/20 at 2:51 pm Service Date, if different from initiated Date: [] Patient: Dayanna Guo a 59 y/o F admitted on 05/07/20 for Abdominal pain. Chief Complaint: [] History of present illness: Ms. Guo is a 59 year old F was admitted with subtotal intestinal obstruction. 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 She had exploratory laparotomy with extensive adhesiolysis on January 31. She was found to have a near complete obstruction of the area of prior small bowel resection with primary anastomosis. She had an area proximal to the ileostomy stoma was also nearly completely obstructed. she has done relatively well since then. She states that she had her last regular movement through her stoma about 36 hours prior to admission and then she noted that she was having decreased output. She presented to the emergency room with complaint of dilated abdomen with no output through her stoma. Plain films showed massively dilated small bowel and stomach and CT confirmed that there probably was area of near complete obstruction proximal to her stoma. She has massively dilated stomach and all of her small bowel. She has a very small amount of gas in her stoma appliance. The patient is having crampy abdominal pain. She is admitted and will be treated nonoperatively for the first 24-36 hours. In the past she has decompressed. After her stomach and small proximal bowel was decompressed a small bowel follow-through will be done and I will make a decision based on the outcome of the small bowel follow-through. Constitutional Constitutional: Present fatigue, malaise and weakness Cardiovascular Cardiovascular: Present dyspnea on exertion, palpatations and rapid heart rate Respiratory Respiratory: Present dyspnea on exertion; Absent cough Gastrointestinal Gastrointestinal: Present abdominal pain, bloating, change in bowel habits, cramping, early satiety and nausea Musculoskeletal Musculoskeletal: Present arthralgias Integumentary Integumentary: Present rash Neurological Neurological: Present dizziness, headache(s) and weakness Psychiatric Psychiatric: Present depression Endocrine Endocrine: Present fatigue Hematologic/Lymphatic Hematologic/Lymphatic: Absent easy bleeding, easy bruising and lymphadenopathy Allergic/Immunologic Allergic/Immunologic: Absent tongue swelling, throat swelling, uticaria, wheezing and lip swelling [facility] Medical History (Updated 07/25/20 @ 08:04 by Chase Guidry MD) Abdominal pain (Resolved) Abdominal pain (Chronic) Abdominal wound dehiscence (Resolved) Abnormal liver enzymes (Chronic) Achalasia and cardiospasm (Resolved) Acute respiratory insufficiency (Resolved) Adverse reaction to drug (Resolved) Anaphylaxis (Resolved) Bowel obstruction (Resolved) 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) Chronic use of steroids (Chronic) for myasthenia gravis; 10+ years Chronic, continuous use of opioids (Chronic) Constipation due to neurogenic bowel (Resolved) Constipation due to pain medication therapy (Resolved) Dehydration (Resolved) Dehydration (Resolved) Diabetes mellitus type 2, uncontrolled (Chronic) Encounter for care related to Port-a-Cath (Resolved) Fecal impaction (Resolved) Foot sprain (Resolved) Hypercalcemia (Resolved) Hypertension (Chronic) Hypocalcemia (Resolved) Hyponatremia (Resolved) Hypothyroidism (Chronic) Ileus (Resolved) Infiltrate of lung present on imaging of chest (Resolved) Intractable vomiting (Resolved) Lactic acid acidosis (Resolved) Low blood magnesium level (Chronic) Myasthenia gravis (Chronic) Nausea (Resolved) Nausea & vomiting (Resolved) Nausea & vomiting (Resolved) Nausea and vomiting (Resolved) Obesity, Class II, BMI 35-39.9 (Chronic) Obstruction of descending colon (Resolved) LA (obstructive sleep apnea) (Chronic) Pancreatitis (Resolved) Parastomal hernia with obstruction, without gangrene (Resolved) Partial intestinal obstruction, unspecified as to cause (Resolved) Partial small bowel obstruction (Resolved) Pneumonia (Resolved) 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) Pseudoobstruction of colon (Resolved) Pyelonephritis (Resolved) Recurrent abdominal pain (Chronic) Recurrent intestinal obstruction (Chronic) many recurrences; many surgical interventions Sarcoidosis (Chronic) Sepsis (Resolved) Sepsis associated hypotension (Resolved) Sepsis with acute hypoxic respiratory failure (Resolved) Severe sepsis (Resolved) Sigmoid volvulus (Resolved) Sinus tachycardia (Resolved) Sinus tachycardia (Resolved) Small bowel obstruction (Resolved) Small bowel obstruction (Resolved) Small bowel obstruction (Resolved) Small bowel obstruction (Resolved) Small bowel obstruction (Resolved) Small bowel obstruction (Resolved) Small bowel obstruction due to adhesions (Resolved) Small bowel obstruction due to postoperative adhesions (Resolved) Small bowel obstruction, partial (Resolved) Supraventricular tachycardia (Resolved) UTI (urinary tract infection) (Resolved) UTI (urinary tract infection) (Resolved) Volvulus of sigmoid colon (Resolved) Surgical History History of exploratory laparotomy (Acute) 10/17/2017-with adhesiolysis History of exploratory laparotomy (Acute) 12/01/2017-with adhesiolysis History of exploratory laparotomy (Acute) 07/18/2018 History of exploratory laparotomy (Acute) 08/10/2018-Exploratory laparotomy with small bowel adhesiolysis and incisional hernia repair with mesh graft S/P ileostomy (Resolved) Family History Father CAD (coronary artery disease) Mother CAD (coronary artery disease) Grandfather CVA (cerebral vascular accident) Grandmother CVA (cerebral vascular accident) Social History (Updated 10/19/19 @ 12:52 by Bertha Currie MD) smoking status: Former smoker MEDS/ALLERGIES Home Medications and Allergies Home Medications Medication Instructions Recorded Confirmed Type prednisone 20 mg PO QAMCC #4 tab 05/18/16 05/07/20 Rx duloxetine 30 mg PO BID 11/30/16 05/07/20 History levothyroxine 250 mcg PO QAMAC 08/20/17 05/07/20 History metformin 500 mg PO DAILY #30 tab 10/17/18 05/07/20 Rx calcitriol 0.5 mcg PO TID 02/11/19 05/07/20 History promethazine 25 mg PO Q6HP PRN #60 tab 02/13/19 05/07/20 Rx insulin glargine 10 unit SQ BID 09/30/19 05/07/20 History acetaminophen 650 mg PO Q6HP PRN tab 10/05/19 05/07/20 Rx Accu-Chek 1 each FS ACHS strip 12/03/19 05/07/20 Rx cyclobenzaprine 10 mg PO BIDP PRN 12/13/19 05/07/20 History magnesium oxide 500 mg PO BID 12/13/19 05/07/20 History ondansetron 4 mg SL Q4HP PRN 12/24/19 05/07/20 History promethazine 25 mg MS Q6HP PRN 12/24/19 05/07/20 History pyridostigmine bromide 5 mg/mL 10 mg IM Q6H #240 ml 01/04/20 05/07/20 Rx injection solution filter needles 19 x 1 1/2" #100 each 04/06/20 05/07/20 Rx syringe with needle, safety 3 mL #100 each 04/12/20 05/07/20 Rx 25 gauge x 1" gabapentin 300 mg capsule 300 mg PO QID #120 cap 04/25/20 05/07/20 Rx Allergies Allergy/AdvReac Type Severity Reaction Status Date / Time Sulfa (Sulfonamide Allergy Severe Anaphylaxis Verified 05/06/20 23:30 Antibiotics) adhesive tape AdvReac Mild Blister Verified 05/06/20 23:30 metoclopramide [From Reglan] AdvReac Mild Anxiety Verified 05/06/20 23:30 steri strips AdvReac Mild Blister Uncoded 12/02/19 06:48 Physical Examination Vital Signs Vital signs: Temp Pulse Resp BP Pulse Ox 98.8 F 122 H 16 139/81 97 05/07/20 11:40 05/07/20 11:40 05/07/20 11:40 05/07/20 11:40 05/07/20 11:40 General physical appearance General physical exam: well developed, well nourished, moderate distress and moderate pain Eyes Eye exam: PERRL and normal ocular movement ENT ENT exam: normal mucosa and no hearing loss Head Head exam IM: Present atraumatic, normal inspection and normocephalic Neck Neck exam: no masses, no bruits, trachea midline and no lymphadenopathy Cardiovascular Cardiovascular exam IM: Present RRR, +S1, +S2 and tachycardia Respiratory Respiratory exam: normal expansion, normal respiratory effort, clear to percussion and clear to auscultation Abdomen Abdomen: Present tender, bowel sounds (hyperactive bowel sounds) and surgical scars (healed surgical scar is) Integumentary Integumentary: Present no rash, no growths, no abnormal pigmentation and other Neurologic Neurologic: Present normal coordination and normal sensation Musculoskeletal Musculoskeletal: Present normal gait and normal posture Psychiatric Psychiatric: Present oriented to time, oriented to person, oriented to place, speech is normal and memory intact Results Labs Result diagrams: 05/08/20 12:00 05/08/20 12:00 Labs: Abnormal lab results 05/06/20 05/06/20 Range/Units 00:00 00:00 WBC 11.9 H (4.50-11.00) K/mcL [place] # (Auto) 0.97 H (0.10-0.90) K/mcL Chloride 95 L (96-108) mmol/L Anion Gap 17.0 H (8-16) POC BUN 25 H (6-20) mg/dl BUN 23 H (6-20) mg/dl Glucose 204 H (70-105) mg/dL POC Glucose 204 H (70-105) mg/dL Calcium 10.6 H (8.6-10.4) mg/dl Diabetes panel 05/06/20 Range/Units 00:00 Sodium 138 (133-145) mmol/L Potassium 3.8 (3.3-5.1) mmol/L Chloride 95 L (96-108) mmol/L Carbon Dioxide 26 (22-30) mmol/L BUN 23 H (6-20) mg/dl Creatinine 0.9 (0.6-1.1) mg/dl Glucose 204 H (70-105) mg/dL Calcium 10.6 H (8.6-10.4) mg/dl AST 15 (0-37) U/l ALT 23 (0-40) U/l Alkaline Phosphatase 86 (39-117) U/L Total Protein 7.1 (5.9-8.4) gm/dL Albumin 4.0 (3.2-5.2) gm/dL Calcium panel 05/06/20 Range/Units 00:00 Calcium 10.6 H (8.6-10.4) mg/dl Albumin 4.0 (3.2-5.2) gm/dL Pituitary panel 05/06/20 Range/Units 00:00 Sodium 138 (133-145) mmol/L Potassium 3.8 (3.3-5.1) mmol/L Chloride 95 L (96-108) mmol/L Carbon Dioxide 26 (22-30) mmol/L BUN 23 H (6-20) mg/dl Creatinine 0.9 (0.6-1.1) mg/dl Glucose 204 H (70-105) mg/dL Calcium 10.6 H (8.6-10.4) mg/dl Adrenal panel 05/06/20 Range/Units 00:00 Sodium 138 (133-145) mmol/L Potassium 3.8 (3.3-5.1) mmol/L Chloride 95 L (96-108) mmol/L Carbon Dioxide 26 (22-30) mmol/L BUN 23 H (6-20) mg/dl Creatinine 0.9 (0.6-1.1) mg/dl Glucose 204 H (70-105) mg/dL Calcium 10.6 H (8.6-10.4) mg/dl Total Bilirubin 0.2 (0.0-1.0) mg/dL AST 15 (0-37) U/l ALT 23 (0-40) U/l Alkaline Phosphatase 86 (39-117) U/L Total Protein 7.1 (5.9-8.4) gm/dL Albumin 4.0 (3.2-5.2) gm/dL All other labs normal. A/P Assessment and plan (1) Small bowel obstruction: Status: Acute (2) Primary chronic pseudo-obstruction of small intestine: Status: Acute (3) Myasthenia gravis: Status: Chronic (4) Recurrent intestinal obstruction: Status: Chronic Comment: many recurrences; many surgical interventions (5) LA (obstructive sleep apnea): Status: Chronic (6) Hypertension: Status: Chronic Qualifiers: Hypertension type: essential hypertension Qualified Code(s): I10 - Essential (primary) hypertension (7) Chronic use of steroids: Status: Chronic Comment: for myasthenia gravis; 10+ years (8) Polyglandular autoimmune syndrome: Status: Chronic Narrative A/P Narrative: nasogastric decompression IV fluid hydration Follow-up x-rays in the morning Small bowel follow-through if patient's clinical status improved Exploratory laparotomy if needed Time Spent With Patient Time: Total time spent is greater than 50% in coordination of care (as documented) at patient's floor/unit and/or counseling patient:
[2020-05-07] MEDS: metroNIDAZOLE 500 MG/100 ML BAG IV SCH ×2 (15:19→19:45)
[2020-05-07] MEDS ORDERED: INSULIN LISPRO 1 UNIT/0.01 ML UNIT SQ SCH (18:00)
[2020-05-07] MEDS: PYRIDOSTIGMINE BROMIDE 10 MG/2 ML ML IM SCH (19:45)
[2020-05-07] MEDS: methylPREDNISolone SOD SUCC 125 MG/2 ML VIAL IV SCH (22:08)
[2020-05-07] MEDS: SENNOSIDES 1 TABLET PO SCH (22:08)
[2020-05-08] MEDS: INSULIN LISPRO 1 UNIT/0.01 ML UNIT SQ SCH ×4 (00:03→18:03)
[2020-05-08] MEDS: PYRIDOSTIGMINE BROMIDE 10 MG/2 ML ML IM SCH ×4 (00:05→17:54)
[2020-05-08] MEDS: metroNIDAZOLE 500 MG/100 ML BAG IV SCH ×4 (00:05→19:36)
[2020-05-08] MEDS: HYDROmorphone 0.5 MG/0.5 ML SYRINGE IV PRN ×9 (00:06→21:29)
[2020-05-08] MEDS: 0.9 % SODIUM CHLORIDE 1,000 ML IV SCH ×3 (02:26→18:04)
[2020-05-08] MEDS: 0.9 % SODIUM CHLORIDE 10 ML SYRINGE IV SCH ×3 (05:31→21:27)
[2020-05-08] MEDS: LEVOTHYROXINE 100 MCG VIAL IV SCH (07:26)
[2020-05-08] MEDS: DOCUSATE SODIUM 100 MG CAPSULE PO SCH ×2 (07:34→21:26)
[2020-05-08] MEDS: methylPREDNISolone SOD SUCC 125 MG/2 ML VIAL IV SCH ×2 (08:02→21:29)
[2020-05-08] MEDS: ONDANSETRON 4 MG/2 ML VIAL IV PRN (08:15)
--- NOTE | 2020-05-08 09:07 | XRay Report ---
HISTORY: Nasogastric tube insertion FINDINGS: Nasogastric tube has been inserted. The tip is located along the left lateral wall of the upper fundus of the stomach. The stomach remains over distended with large amount gas. There are thin bands of scar or discoid atelectasis lung bases and a granuloma in the central portion right lung. The heart size is normal. Patient has a Port-A-Cath with the catheter in the right HM. IMPRESSION: Over distended stomach in spite of satisfactory placement of the nasogastric tube Interpreted and Authenticated by: Zay Juarez 05/08/20
--- NOTE | 2020-05-08 09:28 | XRay Report ---
HISTORY: Abdominal pain and small bowel obstruction FINDINGS: There is nasogastric tube in the stomach with the tip pointing superiorly towards the diaphragm. The stomach is now largely decompressed. There still multiple loops of dilated small intestine which contain air-fluid levels. The caliber of the small intestine has diminished since the CT scan performed yesterday. No free intra-abdominal air is present. There is no apparent mass. Degenerative changes are present in the lumbar spine. IMPRESSION: Improving distal small bowel obstruction Interpreted and Authenticated by: Zay Juarez 05/08/20
[2020-05-08 12:39] LABS: Basophils # (Auto) 0.01 K/mcL (0.00-0.30); Basophils % (Auto) 0.1 % (0.0-2.0); Eosinophils # (Auto) 0 K/mcL (0.00-0.70); Eosinophils % (Auto) 0 % (0.0-7.0); Hematocrit 33.3 % (34.1-44.9); Hemoglobin 10.4 g/dL (11.2-15.7); Lymphocytes # (Auto) 0.77 K/mcL (1.50-4.80); Lymphocytes % (Auto) 8.2 % (15.5-49.0); Mean Cell Volume 91.7 fL (80.0-100.0); Mean Corpuscular HGB Conc 31.2 g/dL (31.0-36.0); Mean Platelet Volume 9.6 fL (7.4-10.4); Monocytes # (Auto) 0.07 K/mcL (0.10-0.90); Monocytes % (Auto) 0.7 % (1.0-12.0); Platelet Count 243 K/mcL (140-440); RBC 3.63 M/mcL (3.59-5.38); Red Cell Distribution Width 14.5 % (11.5-14.5); WBC 9.4 K/mcL (4.50-11.00)
[2020-05-08 13:03] LABS: ALT/SGPT 17 U/l (0-40); AST/SGOT 14 U/l (0-37); Albumin 3.1 gm/dL (3.2-5.2); Albumin/Globulin Ratio 1.3 (1.0-2.3); Alkaline Phosphatase 66 U/L (39-117); Bilirubin,Direct < 0.2 mg/dL (0.0-0.3); Bilirubin,Total < 0.2 mg/dL (0.0-1.0); Blood Urea Nitrogen 15 mg/dl (6-20); Calcium 6.9 mg/dl (8.6-10.4); Carbon Dioxide 26 mmol/L (22-30); Chloride 103 mmol/L (96-108); Globulin 2.4 gm/dL (2.2-3.7); Glomerular Filtration Rate 100; Glucose 190 mg/dL (70-105); Lactate Dehydrogenase 229 U/L (94-250); Phosphorous 2.6 mg/dL (2.7-4.5); Triglycerides 280 mg/dl (<150); Uric Acid 5.4 mg/dL (2.5-8.0)
[2020-05-08] MEDS ORDERED: MAGNESIUM SULFATE 32.48 MEQ in DEXTROSE 5% IN WATER 50 ML IV ONE (14:01)
--- NOTE | 2020-05-08 14:11 | General Surgery Progress Note ---
SUBJECTIVE Subjective Patient information: Note initiated : 05/08/20 at 2:06 pm Service Date, if different from initiated Date: [] Patient: Dayanna Guo 59 y/o F admitted on 05/07/20 for Abdominal pain. Chief Complaint: [] Principal diagnosis: partial small bowel obstruction Interval history: patient feels significantly better. She has less abdominal pain and nausea. She complains of headache which she thinks is related to caffeine withdrawal. She had output of liquid stool through her stoma last evening and she has had copious amounts of gas. Her morning x-rays significantly improved. Phosphorus 2.6, magnesium 1.4, white blood count 9.4, hemoglobin 10.4, hematocrit 33.3 Constitutional Vitals: Vital Signs Temp Pulse Resp BP Pulse Ox 98.8 F 86 16 125/79 92 05/08/20 12:51 05/08/20 12:51 05/08/20 12:51 05/08/20 12:51 05/08/20 12:51 Period Temp Pulse Resp BP Sys/Archuleta Pulse Ox Last 24 Hr 97.0 F-98.8 F 86-128 12-20 101-139/61-81 92-96 Intake and Output 05/08/20 05/08/20 05/08/20 05:59 13:59 21:59 Intake Total 1350 1200 Output Total 1475 300 Balance -125 900 Intake & Output: Intake & Output 05/08/20 05/08/20 05/08/20 05:59 13:59 21:59 Intake Total 1350 1200 Output Total 1475 300 Balance -125 900 Intake: IV 1100 1200 Sodium Chloride 0.9% 1,000 ml @ 1000 1000 125 mls/hr IV .Q8H [facility], [facility]–1983 Rx#: [id number] Oral 250 Tube Feeding 0 Output: Gastric Drainage 350 Right Nare 350 Void Amount 925 300 Stool 200 Other: Urine Color Dark Yellow Urine Odor Strong Head Head exam: Present atraumatic, normal inspection and normocephalic Eye Eye exam: Present EOMI and normal appearance Pupils: Present normal accommodation and PERRL ENT ENT exam: Present normal exam and normal oropharynx Neck Neck exam: Present full ROM; Absent tenderness Respiratory Respiratory exam: Present normal respiratory exam and CTAB; Absent rales, rhonchi and wheezes Cardiovascular Cardiovascular exam: Present RRR, +S1, +S2 and tachycardia; Absent JVD GI/Abdominal GI/Abdominal exam: Present normal bowel sounds, soft and distended (abdomen is less distended than on yesterday) Extremities Exam Extremities exam: Present normal capillary refill and neurovascular intact; Absent calf tenderness and pedal edema Back Exam Back exam: Present full ROM Neurological Exam Neurological exam: Present alert, CN II-XII intact, normal gait, oriented X3 and reflexes normal Psychiatric Psychiatric exam: Present anxious, normal affect and normal mood Skin Skin exam: Present intact; Absent rash, urticaria and vesicles A/P Assessment and plan (1) Small bowel obstruction: Status: Acute (2) Primary chronic pseudo-obstruction of small intestine: Status: Acute (3) Myasthenia gravis: Status: Chronic (4) Diabetes mellitus type 2, uncontrolled: Status: Chronic (5) LA (obstructive sleep apnea): Status: Chronic Narrative A/P Narrative: Tylenol 1 g IV every 6 hours when necessary headache cHECK labs in the morning Magnesium rider Phosphate rider Probable small bowel follow-through in the morning Time Spent With Patient Time: Total time spent is greater than 50% in coordination of care (as documented) at patient's floor/unit and/or counseling patient:
[2020-05-08] MEDS: ACETAMINOPHEN 1,000 MG/100 ML BOTTLE IV PRN (15:07)
[2020-05-08] MEDS ORDERED: MAGNESIUM SULFATE 4 GM/100 ML BAG IV ONE (16:00)
[2020-05-08] MEDS: BENZOCAINE 1 SPRAY BOTTLE TOPICAL PRN ×2 (16:31→21:35)
[2020-05-08] MEDS: SODIUM PHOSPHATE 30 MMOL in DEXTROSE 5% IN WATER 500 ML IV SCH (20:00)
[2020-05-08] MEDS: SENNOSIDES 1 TABLET PO SCH (21:26)
[2020-05-09] MEDS: metroNIDAZOLE 500 MG/100 ML BAG IV SCH ×3 (00:05→12:11)
[2020-05-09] MEDS: PYRIDOSTIGMINE BROMIDE 10 MG/2 ML ML IM SCH ×4 (00:09→17:25)
[2020-05-09] MEDS: HYDROmorphone 0.5 MG/0.5 ML SYRINGE IV PRN ×6 (00:11→17:53)
[2020-05-09] MEDS: INSULIN LISPRO 1 UNIT/0.01 ML UNIT SQ SCH ×5 (00:16→21:08)
[2020-05-09] MEDS: 0.9 % SODIUM CHLORIDE 1,000 ML IV SCH ×2 (01:49→13:00)
[2020-05-09] MEDS: SODIUM PHOSPHATE 30 MMOL in DEXTROSE 5% IN WATER 500 ML IV SCH (02:06)
[2020-05-09] MEDS: 0.9 % SODIUM CHLORIDE 10 ML SYRINGE IV SCH ×3 (05:40→21:13)
[2020-05-09 06:24] LABS: Basophils # (Auto) 0.01 K/mcL (0.00-0.30); Basophils % (Auto) 0.1 % (0.0-2.0); Eosinophils # (Auto) 0 K/mcL (0.00-0.70); Eosinophils % (Auto) 0 % (0.0-7.0); Granulocytes % (Auto) 89.1 % (38.0-78.0); Hematocrit 30.6 % (34.1-44.9); Hemoglobin 9.7 g/dL (11.2-15.7); Lymphocytes # (Auto) 0.78 K/mcL (1.50-4.80); Lymphocytes % (Auto) 8.4 % (15.5-49.0); Mean Cell Volume 91.3 fL (80.0-100.0); Mean Corpuscular HGB Conc 31.7 g/dL (31.0-36.0); Mean Platelet Volume 9.7 fL (7.4-10.4); Monocytes # (Auto) 0.22 K/mcL (0.10-0.90); Monocytes % (Auto) 2.4 % (1.0-12.0); Platelet Count 239 K/mcL (140-440); RBC 3.35 M/mcL (3.59-5.38); Red Cell Distribution Width 14.5 % (11.5-14.5); WBC 9.3 K/mcL (4.50-11.00)
[2020-05-09 06:55] LABS: ALT/SGPT 14 U/l (0-40); AST/SGOT 10 U/l (0-37); Albumin 3.1 gm/dL (3.2-5.2); Albumin/Globulin Ratio 1.5 (1.0-2.3); Alkaline Phosphatase 62 U/L (39-117); Bilirubin,Direct < 0.2 mg/dL (0.0-0.3); Bilirubin,Total < 0.2 mg/dL (0.0-1.0); Blood Urea Nitrogen 14 mg/dl (6-20); Calcium 6.3 mg/dl (8.6-10.4); Carbon Dioxide 27 mmol/L (22-30); Globulin 2.1 gm/dL (2.2-3.7); Glomerular Filtration Rate 100; Glucose 363 mg/dL (70-105); Lactate Dehydrogenase 194 U/L (94-250); Triglycerides 214 mg/dl (<150)
[2020-05-09] MEDS: LEVOTHYROXINE 100 MCG VIAL IV SCH (07:05)
[2020-05-09] MEDS: ACETAMINOPHEN 1,000 MG/100 ML BOTTLE IV PRN ×2 (07:06→13:01)
[2020-05-09 07:28] LABS: Chloride 94 mmol/L (96-108); Phosphorous 12.4 mg/dL (2.7-4.5)
[2020-05-09] MEDS: ONDANSETRON 4 MG/2 ML VIAL IV PRN ×2 (07:58→18:45)
[2020-05-09] MEDS: DOCUSATE SODIUM 100 MG CAPSULE PO SCH ×2 (08:59→21:13)
[2020-05-09] MEDS: methylPREDNISolone SOD SUCC 125 MG/2 ML VIAL IV SCH ×2 (09:06→21:11)
--- NOTE | 2020-05-09 09:06 | XRay Report ---
CLINICAL INFORMATION: FOLLOW -UP OF SMALL BOWEL OBSTRUCTION COMPARISON: 05/08/2020 FINDINGS: NG tube tip is coiled in the gastric fundus. The stomach and a few loops of upper small bowel remain mildly dilated - although improved from previous exam. Distal small bowel and colon remain relatively decompressed no free air IMPRESSION: Improving small bowel obstruction. Interpreted and Authenticated by: All Lundberg 05/09/20
[2020-05-09 09:35] LABS: Phosphorous 5.3 mg/dL (2.7-4.5)
[2020-05-09] MEDS: BENZOCAINE 1 SPRAY BOTTLE TOPICAL PRN (12:23)
--- NOTE | 2020-05-09 12:40 | General Surgery Progress Note ---
SUBJECTIVE Subjective Patient information: Note initiated : 05/09/20 at 12:40 pm Service Date, if different from initiated Date: [] Patient: Dayanna Guo 59 y/o F admitted on 05/07/20 for Abdominal pain. Chief Complaint: [] Principal diagnosis: partial small bowel obstruction Interval history: patient has had an uneventful night. She has passed a small amount of stool throughout her stoma and has had multiple episodes of flatus. Her abdomen is a lot softer and her abdominal x-rays show significant reduction in the amount of small bowel dilation. Patient will be scheduled for Gastrografin small bowel follow-through. Hopefully this will be effective in eliminating the area of distention and she can be started on a diet. Constitutional Vitals: Vital Signs Temp Pulse Resp BP Pulse Ox 97.7 F 72 20 148/88 95 05/09/20 07:49 05/09/20 07:49 05/09/20 07:49 05/09/20 07:49 05/09/20 07:49 Period Temp Pulse Resp BP Sys/Archuleta Pulse Ox Last 24 Hr 97.6 F-98.8 F 72-89 16-20 120-164/70-96 91-97 Intake and Output 05/08/20 05/09/20 05/09/20 21:59 05:59 13:59 Intake Total 200 610 670 Output Total 150 225 Balance 50 385 670 Weight 235 lb 4.8 oz 235 lb 4.8 oz Patient Weight 05/10/20 05:59 Weight 235 lb 4.8 oz Intake & Output: Intake & Output 05/08/20 05/09/20 05/09/20 21:59 05:59 13:59 Intake Total 200 610 670 Output Total 150 225 Balance 50 385 670 Weight 235 lb 4.8 oz 235 lb 4.8 oz Intake: IV 200 610 610 Sodium Phosphate 30 Mmol In 510 510 Dextrose 5% in Water 500 ml @ 85 mls/hr IV Q6H [facility] Rx#: [id number] Oral 60 Tube Feeding 0 0 Output: Gastric Drainage 150 100 Right Nare 150 100 Stool 125 Other: Stool Size Small Stool Color Jaren Colored Brown Stool Consistency Soft Soft # Voids 1 1 1 Head Head exam: Present atraumatic, normal inspection and normocephalic Eye Eye exam: Present EOMI and normal appearance Pupils: Present normal accommodation and PERRL ENT ENT exam: Present normal exam and normal oropharynx Neck Neck exam: Present full ROM; Absent tenderness Respiratory Respiratory exam: Present normal respiratory exam and CTAB; Absent rales, rhonchi and wheezes Cardiovascular Cardiovascular exam: Present RRR, +S1, +S2 and tachycardia; Absent JVD GI/Abdominal GI/Abdominal exam: Present normal bowel sounds, soft and distended (abdomen is less distended than on yesterday) Extremities Exam Extremities exam: Present normal capillary refill and neurovascular intact; Absent calf tenderness and pedal edema Back Exam Back exam: Present full ROM Neurological Exam Neurological exam: Present alert, CN II-XII intact, normal gait, oriented X3 and reflexes normal Psychiatric Psychiatric exam: Present anxious, normal affect and normal mood Skin Skin exam: Present intact; Absent rash, urticaria and vesicles A/P Assessment and plan (1) Small bowel obstruction: Status: Acute (2) Primary chronic pseudo-obstruction of small intestine: Status: Acute (3) Myasthenia gravis: Status: Chronic (4) Diabetes mellitus type 2, uncontrolled: Status: Chronic (5) Hypertension: Status: Chronic Qualifiers: Hypertension type: essential hypertension Qualified Code(s): I10 - Essential (primary) hypertension (6) Sinus tachycardia: Status: Resolved Narrative A/P Narrative: Gastrografin small bowel follow It is anticipated that the contrast will go through and her nasogastric tube can be discontinued She will be started on MiraLAX full liquid diet Time Spent With Patient Time: Total time spent is greater than 50% in coordination of care (as documented) at patient's floor/unit and/or counseling patient:
[2020-05-09] MEDS ORDERED: DIATRIZOATE MEGLU/DIATRIZO SOD 30 ML BOTTLE PO ONE (14:36)
--- NOTE | 2020-05-09 15:32 | XRay Report ---
CLINICAL INFORMATION: f/u of small bowel obstruction COMPARISON: Plain films 05/09/2020. TECHNIQUE: Following building maintenance engineer imaging, water-soluble contrast was then administered through indwelling NG tube and serial imaging was obtained one and 10 minute period FINDINGS: Stomach and residual small bowel are unremarkable with normal small bowel transit time with a colostomy in the right lower quadrant. No evidence of residual obstruction IMPRESSION: Resolution small bowel obstruction. Transit time one hour 10 minutes. Interpreted and Authenticated by: All Lundberg 05/09/20
[2020-05-09] MEDS ORDERED: PROMETHAZINE 25 MG TABLET PO PRN (16:58)
[2020-05-09] MEDS ORDERED: NON FORMULARY MEDICATION 1 DOSE MISCELL (Accu-Chek 1 EACH) FS SCH (17:00)
[2020-05-09] MEDS ORDERED: INSULIN LISPRO 1 UNIT/0.01 ML UNIT SQ ONE (17:22)
[2020-05-09] MEDS ORDERED: CYCLOBENZAPRINE 10 MG TABLET PO PRN (18:10)
[2020-05-09] MEDS: GABAPENTIN 300 MG CAPSULE PO SCH ×2 (18:22→21:12)
[2020-05-09] MEDS: INSULIN GLARGINE, HUMAN 1 UNIT/0.01 ML SQ SCH (21:10)
[2020-05-09] MEDS: POLYETHYLENE GLYCOL 3350 17 GM PACKET PO SCH (21:10)
[2020-05-09] MEDS: MAGNESIUM OXIDE 400 MG TABLET PO SCH (21:12)
[2020-05-09] MEDS: CALCITRIOL 0.25 MCG CAPSULE PO SCH (21:12)
[2020-05-09] MEDS: SENNOSIDES 1 TABLET PO SCH (21:13)
[2020-05-09] MEDS: DULoxetine 30 MG CAPSULE PO SCH (21:13)
[2020-05-10] MEDS: PYRIDOSTIGMINE BROMIDE 10 MG/2 ML ML IM SCH ×3 (01:04→12:19)
[2020-05-10] MEDS: HYDROmorphone 0.5 MG/0.5 ML SYRINGE IV PRN ×5 (01:27→15:21)
[2020-05-10] MEDS: 0.9 % SODIUM CHLORIDE 10 ML SYRINGE IV SCH ×2 (04:53→12:20)
--- NOTE | 2020-05-10 06:42 | XRay Report ---
CLINICAL INFORMATION: FOLLOW -UP OF SMALL BOWEL OBSTRUCTION COMPARISON: Small bowel follow-through study 05/09/2020 FINDINGS: The stool gas pattern is normal. No free air, soft tissue mass or organomegaly. IMPRESSION: Negative Interpreted and Authenticated by: All Lundberg 05/10/20
[2020-05-10 07:06] LABS: Basophils # (Auto) 0.01 K/mcL (0.00-0.30); Basophils % (Auto) 0.1 % (0.0-2.0); Eosinophils # (Auto) 0 K/mcL (0.00-0.70); Eosinophils % (Auto) 0 % (0.0-7.0); Hematocrit 33.6 % (34.1-44.9); Hemoglobin 10.5 g/dL (11.2-15.7); Lymphocytes # (Auto) 0.77 K/mcL (1.50-4.80); Lymphocytes % (Auto) 10.7 % (15.5-49.0); Mean Cell Volume 89.8 fL (80.0-100.0); Mean Corpuscular HGB Conc 31.3 g/dL (31.0-36.0); Mean Platelet Volume 9.7 fL (7.4-10.4); Monocytes # (Auto) 0.23 K/mcL (0.10-0.90); Monocytes % (Auto) 3.2 % (1.0-12.0); Platelet Count 254 K/mcL (140-440); RBC 3.74 M/mcL (3.59-5.38); Red Cell Distribution Width 14.6 % (11.5-14.5); WBC 7.2 K/mcL (4.50-11.00)
[2020-05-10] MEDS ORDERED: LEVOTHYROXINE 125 MCG TABLET PO SCH (07:30)
[2020-05-10 07:44] LABS: ALT/SGPT 17 U/l (0-40); AST/SGOT 11 U/l (0-37); Albumin 3.3 gm/dL (3.2-5.2); Albumin/Globulin Ratio 1.4 (1.0-2.3); Alkaline Phosphatase 67 U/L (39-117); Bilirubin,Direct < 0.2 mg/dL (0.0-0.3); Bilirubin,Total < 0.2 mg/dL (0.0-1.0); Blood Urea Nitrogen 15 mg/dl (6-20); Calcium 6.9 mg/dl (8.6-10.4); Carbon Dioxide 27 mmol/L (22-30); Chloride 99 mmol/L (96-108); Globulin 2.4 gm/dL (2.2-3.7); Glomerular Filtration Rate 96; Glucose 285 mg/dL (70-105); Lactate Dehydrogenase 227 U/L (94-250); Phosphorous 4.3 mg/dL (2.7-4.5); Triglycerides 282 mg/dl (<150); Uric Acid 5.9 mg/dL (2.5-8.0)
[2020-05-10] MEDS ORDERED: metFORMIN 500 MG TABLET PO SCH (08:00)
[2020-05-10] MEDS: POLYETHYLENE GLYCOL 3350 17 GM PACKET PO SCH ×2 (08:12→15:13)
[2020-05-10] MEDS: MAGNESIUM OXIDE 400 MG TABLET PO SCH (08:13)
[2020-05-10] MEDS: DOCUSATE SODIUM 100 MG CAPSULE PO SCH (08:14)
[2020-05-10] MEDS: CALCITRIOL 0.25 MCG CAPSULE PO SCH ×2 (08:14→15:14)
[2020-05-10] MEDS: DULoxetine 30 MG CAPSULE PO SCH (08:14)
[2020-05-10] MEDS: GABAPENTIN 300 MG CAPSULE PO SCH ×2 (08:15→12:17)
[2020-05-10] MEDS: methylPREDNISolone SOD SUCC 125 MG/2 ML VIAL IV SCH (08:15)
[2020-05-10] MEDS: INSULIN GLARGINE, HUMAN 1 UNIT/0.01 ML SQ SCH (08:16)
[2020-05-10] MEDS: INSULIN LISPRO 1 UNIT/0.01 ML UNIT SQ SCH ×2 (08:16→12:19)
--- NOTE | 2020-05-10 12:46 | Discharge Summary ---
Discharge Provider Provider Patient information: Note initiated : 05/10/20 at 12:36 pm Service Date, if different from initiated Date: [] Patient: Dayanna Guo 59 y/o F admitted on 05/07/20 for Abdominal pain. 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 Patient was last admitted in February 2020. SHE STATES THAT SHE WAS DOING WELL AND SUDDENLY DEVELOPED ABDOMINAL DISTENTION WITH PAIN AND NAUSEA. She presented to the emergency room with massive dilation of her small bowel extending to the distal ileum. By the time she reached the floor she had a small amount of gas in her stoma appliance. Patient was treated with IV fluids, nasogastric decompression, reinstitution of REGONOL therapy, and bowel rest. After 36 hours of decompression she had a Gastrografin small bowel follow-through which showed total transit through the bowel in 90 minutes. The patient was then started on full liquid diet with MiraLAX. She she has had extensive large volume output through her stoma and is now asymptomatic. She has some electrolyte deficiencies which were corrected. She is now back on all of her home medications and is eating a regular diet without difficulty. Patient is stable to be discharged home. Discharge diagnosis: partial small bowel obstruction Secondary discharge diagnosis: chronic intestinal pseudoobstruction Myasthenia gravis Polyglandular autoimmune syndrome Recurrent tachycardia Hypo-thyroidism Reason for admission: small bowel obstruction Procedures: none Pertinent studies/significant findings: CT of the abdomen and pelvis with contrast Gastrografin small bowel follow-through Complications: none Time Spent with Patient Time attestation: Total time spent providing and/or coordinating discharge services: Physical Examination Vital Signs Vital signs: Temp Pulse Resp BP Pulse Ox 97.8 F 78 20 164/75 94 05/10/20 12:00 05/10/20 12:00 05/10/20 12:00 05/10/20 12:00 05/10/20 12:00 General physical appearance General physical exam: well developed, well nourished, no distress, no pain, chronically ill and obese Eyes Eye exam: PERRL and normal ocular movement ENT ENT exam: normal mucosa and no hearing loss Head Head exam IM: Present atraumatic, normal inspection and normocephalic Cardiovascular Cardiovascular exam IM: Present RRR, +S1, +S2 and tachycardia Abdomen Abdomen: Present tender, bowel sounds (hyperactive bowel sounds) and surgical scars (healed surgical scar is) Integumentary Integumentary: Present no rash, no growths, no abnormal pigmentation and other Neurologic Neurologic: Present normal coordination and normal sensation Musculoskeletal Musculoskeletal: Present normal gait and normal posture Psychiatric Psychiatric: Present oriented to time, oriented to person, oriented to place, speech is normal and memory intact Discharge Plan Patient/Caregiver Discharge Instructions Activity: increase activity as tolerated Diet: Regular Diet Activity Restrictions/Additional Instructions: resume normal activity without restrictions Prescriptions: Continued pyridostigmine bromide 5 mg/mL solution 10 mg IM Q6H Qty: 240 RF: 5 (DME) filter needles 19 x 1 1/2" 19 x 1 1/2 " needle See Rx Instructions .ROUTE .MEDSUPPLY Qty: 100 RF: 1 (DME) BD SafetyGlide Syringe 3 mL 25 gauge x 1" syringe See Rx Instructions .ROUTE .MEDSUPPLY Qty: 100 RF: 1 gabapentin 300 mg capsule 300 mg PO QID Qty: 120 RF: 3 prednisone 20 MG tablet 20 mg PO QAMCC Qty: 4 RF: 0 duloxetine 30 MG capsule 30 mg PO BID RF: 0 levothyroxine 125 MCG tablet 250 mcg PO QAMAC RF: 0 metformin 500 MG tablet 500 mg PO DAILY Qty: 30 RF: 0 calcitriol 0.25 MCG capsule 0.5 mcg PO TID RF: 0 promethazine 25 MG tablet 25 mg PO Q6HP PRN (Reason: Nausea) Qty: 60 RF: 3 insulin glargine 1 UNIT/0.01 ML unit 10 unit SQ BID RF: 0 acetaminophen 325 MG tablet 650 mg PO Q6HP PRN (Reason: Pain/Fever > 101) RF: 0 Accu-Chek 1 EACH strip 1 each FS ACHS RF: 0 cyclobenzaprine 10 MG tablet 10 mg PO BIDP PRN (Reason: Spasms) RF: 0 magnesium oxide 250 MG tablet 500 mg PO BID RF: 0 promethazine 25 MG suppository 25 mg [place] Q6HP PRN (Reason: nausea vomitting) RF: 0 ondansetron 4 MG tablet 4 mg SL Q4HP PRN (Reason: Nausea) RF: 0 Follow Up Plan Follow up with: Bertha Currie MD [Physician] - (follow-up the office on an as-needed basis) Assessment: patient is stable and has no complaints at this time Prognosis: Good Rehab Potential: Good I certify that the patient requires SNF services: No Overall status at discharge: patient is back to baseline Discharge Orders: Discharge Order (Routine); Ordered 05/10/20 Ordered By: Bertha Currie Pending Pending Pending: Resuscitation Status Full Code Diet GI Soft/Transitional Start SatMay 10 0730 Diet Full Liquid Diet Start SatMay 09 1554 Acetaminophen (Ofirmev) 0 mg IV Q6HP PRN; Protocol PRN Reason: Fever OR HEADACHE Last Admin: 05/09/20 13:01 Dose: 1,000 mg Documented by: Admin: 05/09/20 07:06 Dose: 1,000 mg Documented by: Admin: 05/08/20 15:07 Dose: 1,000 mg Documented by: ERIC Benzocaine (Cetacaine) 3 spray TOPICAL Q2-3HP PRN PRN Reason: Sore Throat Last Admin: 05/09/20 12:23 Dose: 1 spray Documented by: Admin: 05/08/20 21:35 Dose: 3 spray Documented by: Admin: 05/08/20 16:31 Dose: 3 spray Documented by: ERIC Calcitriol (Rocaltrol) 0.5 mcg PO TID [facility] Last Admin: 05/10/20 08:14 Dose: 0.5 mcg Documented by: Admin: 05/09/20 21:12 Dose: 0.5 mcg Documented by: SAL Cyclobenzaprine HCl (Flexeril) 10 mg PO BIDP PRN PRN Reason: Spasms Last Admin: 05/09/20 21:13 Dose: 10 mg Documented by: SAL Diagnostic Test (Pha) (Accu-Chek) 1 each FS ACHS [facility] Last Admin: 05/10/20 12:08 Dose: 1 each Documented by: Admin: 05/10/20 07:50 Dose: 1 each Documented by: ERIC Docusate Sodium (Colace) 100 mg PO BID [facility] Last Admin: 05/10/20 08:14 Dose: 100 mg Documented by: Admin: 05/09/20 21:13 Dose: 100 mg Documented by: Admin: 05/09/20 08:59 Dose: Not Given Documented by: Admin: 05/08/20 21:26 Dose: Not Given Documented by: Admin: 05/08/20 07:34 Dose: Not Given Documented by: Admin: 05/07/20 22:08 Dose: Not Given Documented by: Admin: 05/07/20 08:33 Dose: Not Given Documented by: ERIC Duloxetine HCl (Cymbalta) 30 mg PO BID [facility] Admin: 05/10/20 08:14 Dose: 30 mg Documented by: Admin: 05/09/20 21:13 Dose: 30 mg Documented by: SAL Gabapentin (Neurontin) 300 mg PO QID [facility] Last Admin: 05/10/20 12:17 Dose: 300 mg Documented by: Admin: 05/10/20 08:15 Dose: 300 mg Documented by: Admin: 05/09/20 21:12 Dose: 300 mg Documented by: Admin: 05/09/20 18:22 Dose: 300 mg Documented by: WANDY Hydromorphone HCl (Dilaudid) 0.5 mg IV Q2HP PRN; Protocol PRN Reason: Per Pain Protocol Last Admin: 05/10/20 11:30 Dose: 0.5 mg Documented by: Admin: 05/10/20 08:16 Dose: 0.5 mg Documented by: Admin: 05/10/20 04:53 Dose: 0.5 mg Documented by: Admin: 05/10/20 01:27 Dose: 0.5 mg Documented by: Admin: 05/09/20 17:53 Dose: 0.5 mg Documented by: Admin: 05/09/20 14:43 Dose: 0.5 mg Documented by: Admin: 05/09/20 10:19 Dose: 0.5 mg Documented by: Admin: 05/09/20 07:06 Dose: 0.5 mg Documented by: Admin: 05/09/20 04:24 Dose: 0.5 mg Documented by: Admin: 05/09/20 00:11 Dose: 0.5 mg Documented by: Admin: 05/08/20 21:29 Dose: 0.5 mg Documented by: Admin: 05/08/20 17:50 Dose: 0.5 mg Documented by: Admin: 05/08/20 15:06 Dose: 0.5 mg Documented by: Admin: 05/08/20 12:46 Dose: 0.5 mg Documented by: Admin: 05/08/20 10:31 Dose: 0.5 mg Documented by: Admin: 05/08/20 07:56 Dose: 0.5 mg Documented by: Admin: 05/08/20 05:04 Dose: 0.5 mg Documented by: Admin: 05/08/20 02:26 Dose: 0.5 mg Documented by: Admin: 05/08/20 00:06 Dose: 0.5 mg Documented by: Admin: 05/07/20 22:08 Dose: 0.5 mg Documented by: Admin: 05/07/20 17:02 Dose: 0.5 mg Documented by: Admin: 05/07/20 13:13 Dose: 0.5 mg Documented by: Admin: 05/07/20 10:24 Dose: 0.5 mg Documented by: Admin: 05/07/20 08:08 Dose: 0.5 mg Documented by: Admin: 05/07/20 03:29 Dose: 0.5 mg Documented by: MAYO Insulin Glargine (Lantus) 10 unit SQ BID [facility] Admin: 05/10/20 08:16 Dose: 10 unit Documented by: Admin: 05/09/20 21:10 Dose: 10 unit Documented by: SAL Insulin Human Lispro (Humalog) 0 unit SQ [facility]; Protocol Last Admin: 05/10/20 12:19 Dose: 4 units Documented by: Admin: 05/10/20 08:16 Dose: 6 units Documented by: Admin: 05/09/20 21:08 Dose: Not Given Documented by: Admin: 05/09/20 18:17 Dose: Not Given Documented by: WANDY [facility] Admin: 05/10/20 07:50 Dose: 250 mcg Documented by: ERIC Magnesium Oxide (Magnesium Oxide) 500 mg PO BID [facility] Last Admin: 05/10/20 08:13 Dose: 400 mg Documented by: Admin: 05/09/20 21:12 Dose: 400 mg Documented by: SAL Metformin HCl (Glucophage) 500 mg PO [facility] Last Admin: 05/10/20 08:13 Dose: 500 mg Documented by: ERIC Methylprednisolone Sodium Succinate (Solu-Medrol) 62.5 mg IV Q12 [facility] Last Admin: 05/10/20 08:15 Dose: 62.5 mg Documented by: Admin: 05/09/20 21:11 Dose: 62.5 mg Documented by: Admin: 05/09/20 09:06 Dose: 62.5 mg Documented by: Admin: 05/08/20 21:29 Dose: 62.5 mg Documented by: Admin: 05/08/20 08:02 Dose: 62.5 mg Documented by: Admin: 05/07/20 22:08 Dose: 62.5 mg Documented by: SHAYNA Ondansetron HCl (Zofran) 4 mg IV Q6HP PRN PRN Reason: Nausea And Vomiting Last Admin: 05/09/20 18:45 Dose: 4 mg Documented by: Admin: 05/09/20 07:58 Dose: 4 mg Documented by: Admin: 05/08/20 08:15 Dose: 4 mg Documented by: Admin: 05/07/20 22:09 Dose: 4 mg Documented by: Admin: 05/07/20 15:20 Dose: 4 mg Documented by: Admin: 05/07/20 08:08 Dose: 4 mg Documented by: ERIC Polyethylene Glycol (Miralax) 17 gm PO TID [facility] Last Admin: 05/10/20 08:12 Dose: 17 gm Documented by: Admin: 05/09/20 21:10 Dose: 17 gm Documented by: SAL Pyridostigmine [place] (Regonol) 10 mg IM Q6H [facility] Admin: 05/10/20 12:19 Dose: 10 mg Documented by: Admin: 05/10/20 05:57 Dose: 10 mg Documented by: Admin: 05/10/20 01:04 Dose: 10 mg Documented by: Admin: 05/09/20 17:25 Dose: 10 mg Documented by: Admin: 05/09/20 12:17 Dose: 10 mg Documented by: Admin: 05/09/20 05:24 Dose: 10 mg Documented by: Admin: 05/09/20 00:09 Dose: 10 mg Documented by: Admin: 05/08/20 17:54 Dose: 10 mg Documented by: Admin: 05/08/20 12:35 Dose: 10 mg Documented by: Admin: 05/08/20 05:30 Dose: 10 mg Documented by: Admin: 05/08/20 00:05 Dose: 10 mg Documented by: Admin: 05/07/20 19:45 Dose: 10 mg Documented by: SHAYNA Senna (Senokot) 2 tab PO HS [facility] Last Admin: 05/09/20 21:13 Dose: 2 tab Documented by: Admin: 05/08/20 21:26 Dose: Not Given Documented by: Admin: 05/07/20 22:08 Dose: Not Given Documented by: SHAYNA Sodium Chloride (Saline Flush) 10 ml IV Q8 [facility] Last Admin: 05/10/20 12:20 Dose: 10 ml Documented by: Admin: 05/10/20 04:53 Dose: 10 ml Documented by: Admin: 05/09/20 21:13 Dose: 10 ml Documented by: Admin: 05/09/20 12:18 Dose: 10 ml Documented by: Admin: 05/09/20 05:40 Dose: Not Given Documented by: Admin: 05/08/20 21:27 Dose: Not Given Documented by: Admin: 05/08/20 15:07 Dose: 10 ml Documented by: Admin: 05/08/20 05:31 Dose: Not Given Documented by: Admin: 05/07/20 22:09 Dose: Not Given Documented by: Admin: 05/07/20 15:19 Dose: 10 ml Documented by: Admin: 05/07/20 04:12 Dose: Not Given Documented by: RSAUVE Shift Summary 05/10/20 03:59 Shift Summary by Saida Cohen Pt is A&Ox4 up with SBA in room and SBA with FWW and gait belt in hallway. Requiring less Dilaudid this shift. Ostomy is putting out liquid green stool. Pt does self care to ostomy. Medicated x1 for nausea, pt feels this is related to the Regonol. Possible advancement to GI soft diet today. Current orders are for full liquid. Port-a-Cath SL. Good blood return. Will update with verbal report. Selected Entries 05/09/20 19:34 05/10/20 00:11 Temperature 98.5 F 98.9 F Blood Pressure [Left Arm] 151/96 Blood Pressure [Right Arm] 168/98 Pulse Oximetry (%) 93 90 Oxygen Delivery Method Room Air Room Air Laboratory Tests 05/09/20 05/09/20 05/09/20 05:00 05:00 08:24 WBC 9.3 Potassium 3.5 Glucose 363 H Calcium 6.3 L Phosphorus 5.3 H Initialized on 05/10/20 03:59 - END OF NOTE
[2020-05-10] MEDS ORDERED: MAGNESIUM SULFATE 4 GM/100 ML BAG IV ONE (13:00)
[2020-05-10] MEDS ORDERED: HEPARIN SODIUM,PORCINE/PF 500 UNIT/5 ML SYRINGE IV ONE (14:20)
== END 2020-05-10 15:43 | disposition home or self-care (01) | DRG 389 ==
LOC: ED 23:30 → MEDSUR 05-07 02:19
PROVIDERS: ADMIT Family Medicine Adult Medicine; ATTEND Family Medicine Adult Medicine

== ENCOUNTER 2020-07-12 13:46 | Inpatient (IN) ==
[2020-07-12] MEDS ORDERED: 0.9 % SODIUM CHLORIDE 1,000 ML IV ONE (14:16)
[2020-07-12] MEDS ORDERED: ONDANSETRON 4 MG/2 ML VIAL IV ONE (14:16)
--- NOTE | 2020-07-12 14:30 | Emergency Department Note ---
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 Her last meal was at 4 PM yesterday. She began developing stoma pain and left lower quadrant pain at 2100, and around midnight began to have abdominal bloating. She's had emesis x4 since 9 PM that she describes as "frothy" and denies hematemesis. She's tried Aleve and Tylenol for pain without relief. She's taken 1 dose of her Regonol IM. She's tried Zofran x3 without relief. She has been able to keep water down with last drink at 1:30 PM. She denies fevers or chills, but does note diaphoresis which she states is a common presenting symptom when she becomes dehydrated. She has not taken any of her usual medications today. Related Data Home Medications Medication Instructions Recorded Confirmed duloxetine 30 mg PO BID 11/30/16 07/12/20 levothyroxine 250 mcg PO QAMAC 08/20/17 07/12/20 calcitriol 0.5 mcg PO TID 02/11/19 07/12/20 insulin glargine 10 unit SQ BID 09/30/19 07/12/20 cyclobenzaprine 10 mg PO BIDP PRN 12/13/19 05/07/20 magnesium oxide 500 mg PO BID 12/13/19 07/12/20 ondansetron 4 mg SL Q4HP PRN 12/24/19 07/12/20 promethazine 25 mg PA Q6HP PRN 12/24/19 07/12/20 metformin 500 mg PO BID 07/12/20 07/12/20 Previous Rx's Medication Instructions Recorded prednisone 20 mg PO QAC #4 tab 05/18/16 promethazine 25 mg PO Q6HP PRN #60 tab 02/13/19 acetaminophen 650 mg PO Q6HP PRN tab 10/05/19 Accu-Chek 1 each FS ACHS strip 12/03/19 pyridostigmine bromide 5 mg/mL 10 mg IM Q6H #240 ml 01/04/20 injection solution filter needles 19 x 1 1/2" #100 each 04/06/20 syringe with needle, safety 3 mL #100 each 04/12/20 25 gauge x 1" gabapentin 300 mg capsule 300 mg PO QID #120 cap 04/25/20 Allergies Allergy/AdvReac Type Severity Reaction Status Date / Time Sulfa (Sulfonamide Allergy Severe Anaphylaxis Verified 07/12/20 13:51 Antibiotics) adhesive tape AdvReac Mild Blister Verified 07/12/20 13:51 metoclopramide [From Reglan] AdvReac Mild Anxiety Verified 07/12/20 13:51 steri strips AdvReac Mild Blister Uncoded 12/02/19 06:48 Review of Systems ROS ROS Narrative: Narrative: Negative other than noted in the HPI PFSH Narrative Patient History Narrative: Narrative: Medical/Surgical/Family History All Active Problems (Updated 07/12/20 @ 17:29 by Lupe Suarez PA-C) Hyponatremia (Acute) Elevated LFTs (Acute) Small bowel obstruction (Acute) Dehydration (Acute) Primary chronic pseudo-obstruction of small intestine (Acute) UTI (urinary tract infection) (Acute) Hypocalcemia (Acute) Nausea & vomiting (Acute) Severe sepsis (Acute) 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 (Acute) Chronic, continuous use of opioids (Chronic) Myasthenia gravis (Chronic) Chronic intestinal pseudo-obstruction (Chronic) Recurrent intestinal obstruction (Chronic) Diabetes mellitus type 2, uncontrolled (Chronic) LA (obstructive sleep apnea) (Chronic) Hypertension (Chronic) Obesity, Class II, BMI 35-39.9 (Chronic) Low blood magnesium level (Chronic) Abdominal pain (Chronic) Chronic use of steroids (Chronic) Abnormal liver enzymes (Chronic) Hypothyroidism (Chronic) Sarcoidosis (Chronic) Polyglandular autoimmune syndrome (Chronic) Recurrent abdominal pain (Chronic) Medical History Abdominal pain (Resolved) Abdominal pain (Chronic) Abdominal wound dehiscence (Resolved) Abnormal liver enzymes (Chronic) Achalasia and cardiospasm (Resolved) Acute respiratory insufficiency (Resolved) Adverse reaction to drug (Resolved) Anaphylaxis (Resolved) Bowel obstruction (Resolved) 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) Chronic use of steroids (Chronic) for myasthenia gravis; 10+ years Chronic, continuous use of opioids (Chronic) Constipation due to neurogenic bowel (Resolved) Constipation due to pain medication therapy (Resolved) Dehydration (Resolved) Dehydration (Resolved) Diabetes mellitus type 2, uncontrolled (Chronic) Encounter for care related to Port-a-Cath (Resolved) Fecal impaction (Resolved) Foot sprain (Resolved) Hypercalcemia (Resolved) Hypertension (Chronic) Hypocalcemia (Resolved) Hyponatremia (Resolved) Hypothyroidism (Chronic) Ileus (Resolved) Infiltrate of lung present on imaging of chest (Resolved) Intractable vomiting (Resolved) Lactic acid acidosis (Resolved) Low blood magnesium level (Chronic) Myasthenia gravis (Chronic) Nausea (Resolved) Nausea & vomiting (Resolved) Nausea & vomiting (Resolved) Nausea and vomiting (Resolved) Obesity, Class II, BMI 35-39.9 (Chronic) Obstruction of descending colon (Resolved) LA (obstructive sleep apnea) (Chronic) Pancreatitis (Resolved) Parastomal hernia with obstruction, without gangrene (Resolved) Partial intestinal obstruction, unspecified as to cause (Resolved) Partial small bowel obstruction (Resolved) Pneumonia (Resolved) 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) Pseudoobstruction of colon (Resolved) Pyelonephritis (Resolved) Recurrent abdominal pain (Chronic) Recurrent intestinal obstruction (Chronic) many recurrences; many surgical interventions Sarcoidosis (Chronic) Sepsis (Resolved) Sepsis associated hypotension (Resolved) Sepsis with acute hypoxic respiratory failure (Resolved) Severe sepsis (Resolved) Sigmoid volvulus (Resolved) Sinus tachycardia (Resolved) Sinus tachycardia (Resolved) Small bowel obstruction (Resolved) Small bowel obstruction (Resolved) Small bowel obstruction (Resolved) Small bowel obstruction (Resolved) Small bowel obstruction (Resolved) Small bowel obstruction (Resolved) Small bowel obstruction due to adhesions (Resolved) Small bowel obstruction due to postoperative adhesions (Resolved) Small bowel obstruction, partial (Resolved) Supraventricular tachycardia (Resolved) UTI (urinary tract infection) (Resolved) UTI (urinary tract infection) (Resolved) Volvulus of sigmoid colon (Resolved) Surgical History History of exploratory laparotomy (Acute) 10/17/2017-with adhesiolysis History of exploratory laparotomy (Acute) 12/01/2017-with adhesiolysis History of exploratory laparotomy (Acute) 07/18/2018 History of exploratory laparotomy (Acute) 08/10/2018-Exploratory laparotomy with small bowel adhesiolysis and incisional hernia repair with mesh graft S/P ileostomy (Resolved) Family History Father CAD (coronary artery disease) Mother CAD (coronary artery disease) Grandfather CVA (cerebral vascular accident) Grandmother CVA (cerebral vascular accident) Social History Smoking Status: Former smoker Exam Narrative Narrative: Narrative: General Limitations: no limitations General appearance: Present alert, in distress (In mild distress) and obese Head Head: Present atraumatic, normocephalic and normal inspection Eye Eye: Present normal appearance, PERRL and EOMI ENT ENT: Present mucous membranes dry Neck Neck: Present normal inspection Respiratory Respiratory: Present normal lung sounds bilaterally Cardiovascular Cardiovascular: Present tachycardia and normal heart sounds Adbominal Abdominal: Present soft, tenderness (Left lower quadrant pain with mild guarding. There is some mild rigidity in the left umbilical region. Skin is w arm to the touch.), hyperactive bowel sounds (Left lower quadrant) and other (Stoma output is scant. No blood noted. There is minimal air in the stoma bag. Otherwise no significant tenderness to palpation. No erythema.) Psychiatric Psychiatric: Present normal mood, polite and pleasant Skin Skin: Present warm (WNL), dry and normal color Course Course Course Narrative: Recurrent small bowel obstruction with history of chronic pseudo-small bowel obstruction. Patient has had at least 12 surgeries with history of sarcoidosis and myasthenia gravis. Reevaluation(s) Reevaluation #1: Initial interventions will include bolus of normal saline then continuous IV fluids, IV Dilaudid and Tylenol, Zofran, and abdominal film to rule out small bowel obstruction. Reevaluation #2: Patient's tachycardia is improving with IVF's and pain management. RN reporting 250cc output form ostomy. CBC without leukocytosis, but there is a mild transaminitis on chem panel, which is new for her. Lactic acid is pending. Reevaluation #3: Case d/w Dr. Currie and he is recommending admission to General Surgery service Vital Signs Vital signs: Vital Signs Temperature 97.5 F 07/12/20 13:47 Pulse Rate 141 H 07/12/20 13:47 Respiratory Rate 18 07/12/20 13:47 Blood Pressure 124/89 07/12/20 13:47 Pulse Oximetry (%) 93 07/12/20 13:47 Temperature 97.5 F 07/12/20 13:47 Pulse Rate 108 H 07/12/20 16:31 Respiratory Rate 18 07/12/20 13:47 Blood Pressure 103/79 07/12/20 16:31 Pulse Oximetry (%) 96 07/12/20 16:31 MDM MDM Narrative Medical decision making narrative: Case was d/w Dr. Currie, general surgery. Given her imaging findings of recurrent small bowel obstruction and significant symptomology, he is recommending admission to the surgical service. Lab Data Result diagrams: 07/12/20 14:39 07/12/20 14:39 Labs: Lab Results 07/12/20 07/12/20 07/12/20 Range/Units 14:39 14:39 14:40 WBC 10.9 (4.50-11.00) K/mcL RBC 5.18 (3.59-5.38) M/mcL Hgb 14.8 (11.2-15.7) g/dL Hct 46.0 H (34.1-44.9) % MCV 88.8 (80.0-100.0) fL MCH 28.6 (26.0-34.0) pg MCHC 32.2 (31.0-36.0) g/dL RDW 14.5 (11.5-14.5) % Plt Count 306 (140-440) K/mcL MPV 9.5 (7.4-10.4) fL Gran % 65.8 (38.0-78.0) % Lymph % (Auto) 20.6 (15.5-49.0) % Henry % (Auto) 11.1 (1.0-12.0) % Eos % (Auto) 1.9 (0.0-7.0) % Baso % (Auto) 0.6 (0.0-2.0) % Gran # 7.19 (1.80-8.00) K/mcL Lymph # (Auto) 2.25 (1.50-4.80) K/mcL Henry # (Auto) 1.21 H (0.10-0.90) K/mcL Eos # (Auto) 0.21 (0.00-0.70) K/mcL Baso # (Auto) 0.07 (0.00-0.30) K/mcL VBG Lactic Acid 3.0 H (0.5-2.0) mmol/L Sodium 133 (133-145) mmol/L Potassium 4.0 (3.3-5.1) mmol/L Chloride 90 L (96-108) mmol/L Carbon Dioxide 27 (22-30) mmol/L Anion Gap 16.0 (8-16) BUN 18 (6-20) mg/dl Creatinine 1.0 (0.6-1.1) mg/dl GFR Calculation 62 Glucose 264 H (70-105) mg/dL Calcium 9.8 (8.6-10.4) mg/dl Total Bilirubin 0.3 (0.0-1.0) mg/dL AST 44 H (0-37) U/l ALT 50 H (0-40) U/l Alkaline Phosphatase 106 (39-117) U/L Total Protein 6.8 (5.9-8.4) gm/dL Albumin 3.7 (3.2-5.2) gm/dL Globulin 3.1 (2.2-3.7) gm/dL Albumin/Globulin Ratio 1.2 (1.0-2.3) Discharge Plan Patient/Caregiver Discharge Instructions Pt seen by PROCESSING OPERATOR/PA only: Yes Clinical Impression: Primary chronic pseudo-obstruction of small intestine, Small bowel obstruction Patient Disposition: Xfer As Inpt ([facility]) Follow up with: Douglas Haque MD [Primary Care Provider] - Prescriptions: No Action pyridostigmine bromide 5 mg/mL solution 10 mg IM Q6H Qty: 240 RF: 5 (DME) filter needles 19 x 1 1/2" 19 x 1 1/2 " needle See Rx Instructions .ROUTE .MEDSUPPLY Qty: 100 RF: 1 (DME) BD SafetyGlide Syringe 3 mL 25 gauge x 1" syringe See Rx Instructions .ROUTE .MEDSUPPLY Qty: 100 RF: 1 gabapentin 300 mg capsule 300 mg PO QID Qty: 120 RF: 3 pred[facility]one 20 MG tablet [facility] [place] RF: 0 duloxetine 30 MG capsule 30 mg PO BID RF: 0 levothyroxine 125 MCG tablet 250 mcg PO QAMAC RF: 0 calcitriol 0.25 MCG capsule 0.5 mcg PO TID RF: 0 promethazine 25 MG tablet 25 mg PO Q6HP PRN (Reason: Nausea) Qty: 60 RF: 3 insulin glargine 1 UNIT/0.01 ML unit 10 unit SQ BID RF: 0 acetaminophen 325 MG tablet 650 mg PO Q6HP PRN (Reason: Pain/Fever > 101) RF: 0 Accu-Chek 1 EACH strip 1 each FS ACHS RF: 0 cyclobenzaprine 10 MG tablet 10 mg PO BIDP PRN (Reason: Spasms) RF: 0 magnesium oxide 250 MG tablet 500 mg PO BID RF: 0 promethazine 25 MG suppository 25 mg PA Q6HP PRN (Reason: nausea vomitting) RF: 0 ondansetron 4 MG tablet 4 mg SL Q4HP PRN (Reason: Nausea) RF: 0 metformin 500 MG tablet 500 mg PO BID RF: 0
[2020-07-12] MEDS ORDERED: ACETAMINOPHEN 650 MG/65 ML BOTTLE IV ONE (14:36)
[2020-07-12] MEDS ORDERED: 0.9 % SODIUM CHLORIDE 1,000 ML IV SCH (14:45)
[2020-07-12] MEDS: HYDROmorphone 0.5 MG/0.5 ML SYRINGE IV PRN ×3 (14:45→17:01)
[2020-07-12 15:10] LABS: Basophils # (Auto) 0.07 K/mcL (0.00-0.30); Basophils % (Auto) 0.6 % (0.0-2.0); Eosinophils # (Auto) 0.21 K/mcL (0.00-0.70); Eosinophils % (Auto) 1.9 % (0.0-7.0); Granulocytes % (Auto) 65.8 % (38.0-78.0); Hemoglobin 14.8 g/dL (11.2-15.7); Lymphocytes # (Auto) 2.25 K/mcL (1.50-4.80); Lymphocytes % (Auto) 20.6 % (15.5-49.0); Mean Cell Volume 88.8 fL (80.0-100.0); Mean Corpuscular HGB Conc 32.2 g/dL (31.0-36.0); Mean Platelet Volume 9.5 fL (7.4-10.4); Monocytes # (Auto) 1.21 K/mcL (0.10-0.90); Monocytes % (Auto) 11.1 % (1.0-12.0); Platelet Count 306 K/mcL (140-440); RBC 5.18 M/mcL (3.59-5.38); Red Cell Distribution Width 14.5 % (11.5-14.5); WBC 10.9 K/mcL (4.50-11.00)
--- NOTE | 2020-07-12 15:13 | XRay Report ---
CLINICAL INFORMATION: H/O chronic pseudo SBO COMPARISON: None. FINDINGS: The stomach and multiple loops of proximal mid small bowel are moderately dilated with air-fluid levels suggesting recurrent mid small bowel obstruction. Distal small bowel is decompressed. No free air. IMPRESSION: Recurrent distal small bowel obstruction Interpreted and Authenticated by: All Lundberg 07/12/20
[2020-07-12 15:33] LABS: ALT/SGPT 50 U/l (0-40); AST/SGOT 44 U/l (0-37); Albumin 3.7 gm/dL (3.2-5.2); Albumin/Globulin Ratio 1.2 (1.0-2.3); Alkaline Phosphatase 106 U/L (39-117); Bilirubin,Total 0.3 mg/dL (0.0-1.0); Blood Urea Nitrogen 18 mg/dl (6-20); Calcium 9.8 mg/dl (8.6-10.4); Carbon Dioxide 27 mmol/L (22-30); Globulin 3.1 gm/dL (2.2-3.7); Glomerular Filtration Rate 62; Glucose 264 mg/dL (70-105)
[2020-07-12 15:34] LABS: Chloride 90 mmol/L (96-108)
[2020-07-12] MEDS ORDERED: ONDANSETRON 4 MG/2 ML VIAL IV PRN (17:21)
[2020-07-12] MEDS ORDERED: PROMETHAZINE 25 MG/ML VIAL IV PRN (17:27)
[2020-07-12] MEDS ORDERED: LORazepam 2 MG/ML VIAL IV PRN (17:33)
--- NOTE | 2020-07-12 17:55 | General Surg History&Physical ---
HPI History of Present Illness Patient information: Note initiated : 07/12/20 at 5:44 pm Service Date, if different from initiated Date: [] Patient: Dayanna Guo a 59 y/o F admitted on for abdominal pain. Chief Complaint: [] Chief complaint: small bowel obstruction History of present illness: Ms. Guo is a 59 year old F admitted with subtotal intestinal obstruction. 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 The patient was last admitted in April for 3 days stay with spontaneous decompression. She has done well since that time up until last evening when she noted decreased output through her stoma, crampy abdominal pain, and nausea with vomiting. She is still having a small amount of output of stool and gas via her stoma. Abdominal x-rays show dilated stomach and proximal small bowel. During the last 3 ADMISSIONS SHE HAS SPONTANEOUSLY DE compressed.she is admitted and will have nasogastric insertion if she should have nausea vomiting. She will be started on Regonol. Constitutional Constitutional: Present fatigue, malaise and weakness Cardiovascular Cardiovascular: Present dyspnea on exertion, palpatations and rapid heart rate Respiratory Respiratory: Present dyspnea on exertion; Absent cough Gastrointestinal Gastrointestinal: Present abdominal pain, bloating, change in bowel habits, cramping, early satiety and nausea Musculoskeletal Musculoskeletal: Present arthralgias Integumentary Integumentary: Present rash Neurological Neurological: Present dizziness, headache(s) and weakness Psychiatric Psychiatric: Present depression Endocrine Endocrine: Present fatigue Hematologic/Lymphatic Hematologic/Lymphatic: Absent easy bleeding, easy bruising and lymphadenopathy Allergic/Immunologic Allergic/Immunologic: Absent tongue swelling, throat swelling, uticaria, wheezing and lip swelling PFSH PFSH All Active Problems (Updated 07/12/20 @ 17:54 by Bertha Currie MD) Hyponatremia (Acute) Elevated LFTs (Acute) Small bowel obstruction (Acute) Dehydration (Acute) Primary chronic pseudo-obstruction of small intestine (Acute) UTI (urinary tract infection) (Acute) Hypocalcemia (Acute) Nausea & vomiting (Acute) Severe sepsis (Acute) 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 (Acute) Chronic, continuous use of opioids (Chronic) Myasthenia gravis (Chronic) Chronic intestinal pseudo-obstruction (Chronic) Recurrent intestinal obstruction (Chronic) Diabetes mellitus type 2, uncontrolled (Chronic) LA (obstructive sleep apnea) (Chronic) Hypertension (Chronic) Obesity, Class II, BMI 35-39.9 (Chronic) Low blood magnesium level (Chronic) Abdominal pain (Chronic) Chronic use of steroids (Chronic) Abnormal liver enzymes (Chronic) Hypothyroidism (Chronic) Sarcoidosis (Chronic) Polyglandular autoimmune syndrome (Chronic) Recurrent abdominal pain (Chronic) Medical History Abdominal pain (Resolved) Abdominal pain (Chronic) Abdominal wound dehiscence (Resolved) Abnormal liver enzymes (Chronic) Achalasia and cardiospasm (Resolved) Acute respiratory insufficiency (Resolved) Adverse reaction to drug (Resolved) Anaphylaxis (Resolved) Bowel obstruction (Resolved) 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) Chronic use of steroids (Chronic) for myasthenia gravis; 10+ years Chronic, continuous use of opioids (Chronic) Constipation due to neurogenic bowel (Resolved) Constipation due to pain medication therapy (Resolved) Dehydration (Resolved) Dehydration (Resolved) Diabetes mellitus type 2, uncontrolled (Chronic) Encounter for care related to Port-a-Cath (Resolved) Fecal impaction (Resolved) Foot sprain (Resolved) Hypercalcemia (Resolved) Hypertension (Chronic) Hypocalcemia (Resolved) Hyponatremia (Resolved) Hypothyroidism (Chronic) Ileus (Resolved) Infiltrate of lung present on imaging of chest (Resolved) Intractable vomiting (Resolved) Lactic acid acidosis (Resolved) Low blood magnesium level (Chronic) Myasthenia gravis (Chronic) Nausea (Resolved) Nausea & vomiting (Resolved) Nausea & vomiting (Resolved) Nausea and vomiting (Resolved) Obesity, Class II, BMI 35-39.9 (Chronic) Obstruction of descending colon (Resolved) LA (obstructive sleep apnea) (Chronic) Pancreatitis (Resolved) Parastomal hernia with obstruction, without gangrene (Resolved) Partial intestinal obstruction, unspecified as to cause (Resolved) Partial small bowel obstruction (Resolved) Pneumonia (Resolved) 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) Pseudoobstruction of colon (Resolved) Pyelonephritis (Resolved) Recurrent abdominal pain (Chronic) Recurrent intestinal obstruction (Chronic) many recurrences; many surgical interventions Sarcoidosis (Chronic) Sepsis (Resolved) Sepsis associated hypotension (Resolved) Sepsis with acute hypoxic respiratory failure (Resolved) Severe sepsis (Resolved) Sigmoid volvulus (Resolved) Sinus tachycardia (Resolved) Sinus tachycardia (Resolved) Small bowel obstruction (Resolved) Small bowel obstruction (Resolved) Small bowel obstruction (Resolved) Small bowel obstruction (Resolved) Small bowel obstruction (Resolved) Small bowel obstruction (Resolved) Small bowel obstruction due to adhesions (Resolved) Small bowel obstruction due to postoperative adhesions (Resolved) Small bowel obstruction, partial (Resolved) Supraventricular tachycardia (Resolved) UTI (urinary tract infection) (Resolved) UTI (urinary tract infection) (Resolved) Volvulus of sigmoid colon (Resolved) Surgical History History of exploratory laparotomy (Acute) 10/17/2017-with adhesiolysis History of exploratory laparotomy (Acute) 12/01/2017-with adhesiolysis History of exploratory laparotomy (Acute) 07/18/2018 History of exploratory laparotomy (Acute) 08/10/2018-Exploratory laparotomy with small bowel adhesiolysis and incisional hernia repair with mesh graft S/P ileostomy (Resolved) Family History Father CAD (coronary artery disease) Mother CAD (coronary artery disease) Grandfather CVA (cerebral vascular accident) Grandmother CVA (cerebral vascular accident) Social History (Updated 10/19/19 @ 12:52 by Bertha Currie MD) smoking status: Former smoker MEDS/ALLERGIES Home Medications and Allergies Home Medications Medication Instructions Recorded Confirmed Type prednisone 20 mg PO QAC #4 tab 05/18/16 07/12/20 Rx duloxetine 30 mg PO BID 11/30/16 07/12/20 History levothyroxine 250 mcg PO QAMAC 08/20/17 07/12/20 History calcitriol 0.5 mcg PO TID 02/11/19 07/12/20 History promethazine 25 mg PO Q6HP PRN #60 tab 02/13/19 07/12/20 Rx insulin glargine 10 unit SQ BID 09/30/19 07/12/20 History acetaminophen 650 mg PO Q6HP PRN tab 10/05/19 07/12/20 Rx Accu-Chek 1 each FS ACHS strip 12/03/19 07/12/20 Rx cyclobenzaprine 10 mg PO BIDP PRN 12/13/19 05/07/20 History magnesium oxide 500 mg PO BID 12/13/19 07/12/20 History ondansetron 4 mg SL Q4HP PRN 12/24/19 07/12/20 History promethazine 25 mg OK Q6HP PRN 12/24/19 07/12/20 History pyridostigmine bromide 5 mg/mL 10 mg IM Q6H #240 ml 01/04/20 07/12/20 Rx injection solution filter needles 19 x 1 1/2" #100 each 04/06/20 07/12/20 Rx syringe with needle, safety 3 mL #100 each 04/12/20 07/12/20 Rx 25 gauge x 1" gabapentin 300 mg capsule 300 mg PO QID #120 cap 04/25/20 07/12/20 Rx metformin 500 mg PO BID 07/12/20 07/12/20 History Allergies Allergy/AdvReac Type Severity Reaction Status Date / Time Sulfa (Sulfonamide Allergy Severe Anaphylaxis Verified 07/12/20 13:51 Antibiotics) adhesive tape AdvReac Mild Blister Verified 07/12/20 13:51 metoclopramide [From Reglan] AdvReac Mild Anxiety Verified 07/12/20 13:51 steri strips AdvReac Mild Blister Uncoded 12/02/19 06:48 Physical Examination Vital Signs Vital signs: Temp Pulse Resp BP Pulse Ox 97.5 F 108 H 18 125/83 95 07/12/20 13:47 07/12/20 17:00 07/12/20 13:47 07/12/20 17:00 07/12/20 17:00 General physical appearance General physical exam: well developed, well nourished, no distress, no pain, chronically ill and obese Eyes Eye exam: PERRL and normal ocular movement ENT ENT exam: normal mucosa and no hearing loss Head Head exam IM: Present atraumatic, normal inspection and normocephalic Neck Neck exam: no masses, no bruits, trachea midline and no lymphadenopathy Cardiovascular Cardiovascular exam IM: Present RRR, +S1, +S2 and tachycardia Respiratory Respiratory exam: normal expansion, normal respiratory effort, clear to percussion and clear to auscultation Abdomen Abdomen: Present soft, tender, bowel sounds (hyperactive bowel sounds), surgical scars (healed surgical scar is) and distended Integumentary Integumentary: Present no growths and other (rash over the dorsal aspect of both forearms) Neurologic Neurologic: Present normal coordination and normal sensation Musculoskeletal Musculoskeletal: Present normal gait and normal posture Psychiatric Psychiatric: Present oriented to time, oriented to person, oriented to place, speech is normal and memory intact Results Labs Result diagrams: 07/12/20 14:39 07/12/20 14:39 Labs: Abnormal lab results 07/12/20 07/12/20 07/12/20 Range/Units 14:39 14:39 14:40 Hct 46.0 H (34.1-44.9) % [place] # (Auto) 1.21 H (0.10-0.90) K/mcL VBG Lactic Acid 3.0 H (0.5-2.0) mmol/L Chloride 90 L (96-108) mmol/L Glucose 264 H (70-105) mg/dL AST 44 H (0-37) U/l ALT 50 H (0-40) U/l Diabetes panel 07/12/20 Range/Units 14:39 Sodium 133 (133-145) mmol/L Potassium 4.0 (3.3-5.1) mmol/L Chloride 90 L (96-108) mmol/L Carbon Dioxide 27 (22-30) mmol/L BUN 18 (6-20) mg/dl Creatinine 1.0 (0.6-1.1) mg/dl Glucose 264 H (70-105) mg/dL Calcium 9.8 (8.6-10.4) mg/dl AST 44 H (0-37) U/l ALT 50 H (0-40) U/l Alkaline Phosphatase 106 (39-117) U/L Total Protein 6.8 (5.9-8.4) gm/dL Albumin 3.7 (3.2-5.2) gm/dL Calcium panel 07/12/20 Range/Units 14:39 Calcium 9.8 (8.6-10.4) mg/dl Albumin 3.7 (3.2-5.2) gm/dL Pituitary panel 07/12/20 Range/Units 14:39 Sodium 133 (133-145) mmol/L Potassium 4.0 (3.3-5.1) mmol/L Chloride 90 L (96-108) mmol/L Carbon Dioxide 27 (22-30) mmol/L BUN 18 (6-20) mg/dl Creatinine 1.0 (0.6-1.1) mg/dl Glucose 264 H (70-105) mg/dL Calcium 9.8 (8.6-10.4) mg/dl Adrenal panel 07/12/20 Range/Units 14:39 Sodium 133 (133-145) mmol/L Potassium 4.0 (3.3-5.1) mmol/L Chloride 90 L (96-108) mmol/L Carbon Dioxide 27 (22-30) mmol/L BUN 18 (6-20) mg/dl Creatinine 1.0 (0.6-1.1) mg/dl Glucose 264 H (70-105) mg/dL Calcium 9.8 (8.6-10.4) mg/dl Total Bilirubin 0.3 (0.0-1.0) mg/dL AST 44 H (0-37) U/l ALT 50 H (0-40) U/l Alkaline Phosphatase 106 (39-117) U/L Total Protein 6.8 (5.9-8.4) gm/dL Albumin 3.7 (3.2-5.2) gm/dL All other labs normal. A/P Assessment and plan (1) 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: Status: Acute (2) Primary chronic pseudo-obstruction of small intestine: Status: Acute (3) Chronic, continuous use of opioids: Status: Chronic (4) Myasthenia gravis: Status: Chronic (5) Chronic intestinal pseudo-obstruction: Status: Chronic (6) Diabetes mellitus type 2, uncontrolled: Status: Chronic Qualifiers: Coma presence: without coma (7) LA (obstructive sleep apnea): Status: Chronic (8) Hypertension: Status: Chronic Qualifiers: Hypertension type: essential hypertension Qualified Code(s): I10 - Es sential (primary) hypertension (9) Chronic use of steroids: Status: Chronic Comment: for myasthenia gravis; 10+ years Narrative A/P Narrative: nothing by mouth except ice chips and popsicles Nasogastric tube if nausea and vomiting recurs Follow-up abdominal x-rays in the morning Pyridostigmine 5-10 mg every 6 hours Switch appropriate medications to IV until patient can take by mouth Time Spent With Patient Time: Total time spent is greater than 50% in coordination of care (as documented) at patient's floor/unit and/or counseling patient:
[2020-07-12] MEDS: ACETAMINOPHEN 1,000 MG/100 ML BOTTLE IV SCH (19:32)
[2020-07-12] MEDS: HYDROmorphone 1 MG/ML SYRINGE IV PRN (19:48)
[2020-07-12] MEDS: 0.9 % SODIUM CHLORIDE 1,000 ML IV SCH (19:53)
[2020-07-12] MEDS: PYRIDOSTIGMINE BROMIDE 10 MG/2 ML ML IV SCH (21:16)
[2020-07-12] MEDS: methylPREDNISolone SOD SUCC 125 MG/2 ML VIAL IV SCH (21:16)
[2020-07-12] MEDS: 0.9 % SODIUM CHLORIDE 10 ML SYRINGE IV SCH (21:17)
[2020-07-12 22:27] LABS: Estimated Average Glucose(eAG) 186 mg/dL; Hemoglobin A1C 8.1 % HGB (4.0-6.0)
[2020-07-13] MEDS: ACETAMINOPHEN 1,000 MG/100 ML BOTTLE IV SCH ×3 (00:06→11:46)
[2020-07-13] MEDS: PYRIDOSTIGMINE BROMIDE 10 MG/2 ML ML IV SCH ×4 (00:08→17:26)
[2020-07-13] MEDS: HYDROmorphone 1 MG/ML SYRINGE IV PRN ×6 (01:54→20:18)
[2020-07-13] MEDS: 0.9 % SODIUM CHLORIDE 1,000 ML IV SCH ×5 (04:00→20:15)
[2020-07-13] MEDS: 0.9 % SODIUM CHLORIDE 10 ML SYRINGE IV SCH ×3 (05:06→20:25)
--- NOTE | 2020-07-13 06:47 | XRay Report ---
CLINICAL INFORMATION: follow-up of small bowel obstruction COMPARISON: 07/12/2020 FINDINGS: Stomach and multiple loops of small bowel remain moderately dilated with relative decompression of distal small bowel. No free air soft tissue mass. IMPRESSION: High-grade partial distal small bowel obstruction. No change Interpreted and Authenticated by: All Lundberg 07/13/20
[2020-07-13 07:23] LABS: ALT/SGPT 61 U/l (0-40); AST/SGOT 48 U/l (0-37); Albumin 3.3 gm/dL (3.2-5.2); Albumin/Globulin Ratio 1.2 (1.0-2.3); Alkaline Phosphatase 101 U/L (39-117); Bilirubin,Direct < 0.2 mg/dL (0.0-0.3); Bilirubin,Total 0.2 mg/dL (0.0-1.0); Blood Urea Nitrogen 20 mg/dl (6-20); Carbon Dioxide 25 mmol/L (22-30); Chloride 99 mmol/L (96-108); Globulin 2.7 gm/dL (2.2-3.7); Glomerular Filtration Rate 81; Glucose 291 mg/dL (70-105); Lactate Dehydrogenase 226 U/L (94-250); Phosphorous 3.9 mg/dL (2.7-4.5); Uric Acid 5.3 mg/dL (2.5-8.0)
[2020-07-13 07:31] LABS: Triglycerides 548 mg/dl (<150)
[2020-07-13] MEDS: LEVOTHYROXINE 100 MCG VIAL IV SCH (08:19)
[2020-07-13] MEDS: PANTOPRAZOLE 40 MG VIAL IV SCH ×2 (08:19→16:36)
[2020-07-13] MEDS: methylPREDNISolone SOD SUCC 125 MG/2 ML VIAL IV SCH ×2 (09:32→20:25)
[2020-07-13] MEDS: ENOXAPARIN 40 MG/0.4 ML SYRINGE SQ SCH (09:32)
--- NOTE | 2020-07-13 12:12 | General Surgery Progress Note ---
SUBJECTIVE Subjective Patient information: Note initiated : 07/13/20 at 12:08 pm Service Date, if different from initiated Date: [] Patient: Dayanna Guo 59 y/o F admitted on 07/12/20 for abdominal pain. Chief Complaint: [] Principal diagnosis: partial small bowel obstruction Interval history: patient feels significantly better. She has less nausea and she's not had vomiting since admission. Output through her stoma has increased and consists of a as well as stool. Her crampy abdominal pain has improved. BUN 30, creatinine 0.8, calcium 8, magnesium 2, TSH 0.3, hemoglobin A1c 8 point. Abdominal x-ray shows decrease in gastric distention significantly. She also has decrease in small bowel distention. Constitutional Vitals: Vital Signs Temp Pulse Resp BP Pulse Ox 98 F 99 H 14 124/77 90 07/13/20 08:00 07/13/20 08:00 07/13/20 08:00 07/13/20 08:00 07/13/20 08:00 Period Temp Pulse Resp BP Sys/Archuleta Pulse Ox Last 24 Hr 97.5 F-98 F 99-141 12-18 85-176/62-105 82-98 Intake and Output 07/12/20 07/13/20 07/13/20 21:59 05:59 13:59 Intake Total 1065 1100 100 Output Total 200 25 50 Balance 865 1075 50 Weight 237 lb Intake & Output: Intake & Output 07/12/20 07/13/20 07/13/20 21:59 05:59 13:59 Intake Total 1065 1100 100 Output Total 200 25 50 Balance 865 1075 50 Weight 237 lb Intake: IV 1065 1100 100 Sodium Chloride 0.9% 1,000 ml @ 1000 1000 125 mls/hr IV .Q8H [facility] Rx#: [id number] Oral 0 Output: Stool 200 25 50 Other: Stool Size Small Stool Color Brown Stool Consistency Soft # Voids 1 Head Head exam: Present atraumatic, normal inspection and normocephalic Eye Eye exam: Present EOMI and normal appearance Pupils: Present normal accommodation and PERRL ENT ENT exam: Present normal exam and normal oropharynx Neck Neck exam: Present full ROM; Absent tenderness Respiratory Respiratory exam: Present normal respiratory exam and CTAB; Absent rales, rhonchi and wheezes Cardiovascular Cardiovascular exam: Present RRR, +S1, +S2 and tachycardia; Absent JVD GI/Abdominal GI/Abdominal exam: Present normal bowel sounds, soft and distended (abdomen is less distended than on yesterday) Extremities Exam Extremities exam: Present normal capillary refill and neurovascular intact; Absent calf tenderness and pedal edema Back Exam Back exam: Present full ROM Psychiatric Psychiatric exam: Present anxious, normal affect and normal mood Skin Skin exam: Present erythema and rash Additional comments: rash on bilateral extremities is actually improved since last evening A/P Assessment and plan (1) Primary chronic pseudo-obstruction of small intestine: Status: Acute (2) 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: Status: Acute (3) Myasthenia gravis: Status: Chronic (4) Diabetes mellitus type 2, uncontrolled: Status: Chronic Qualifiers: Coma presence: without coma (5) LA (obstructive sleep apnea): Status: Chronic (6) Hypertension: Status: Chronic Qualifiers: Hypertension type: essential hypertension Qualified Code(s): I10 - Essential (primary) hypertension (7) Sinus tachycardia: Status: Resolved (8) Chronic use of steroids: Status: Chronic Comment: for myasthenia gravis; 10+ years Narrative A/P Narrative: patient is clinically improved and is having more movement through her stoma We'll start on MiraLAX in apple juice and allow her to have coffee Check abdominal x-rays in the morning Magnesium rider IV Time Spent With Patient Time: Total time spent is greater than 50% in coordination of care (as documented) at patient's floor/unit and/or counseling patient:
[2020-07-13] MEDS: INSULIN LISPRO 1 UNIT/0.01 ML UNIT SQ SCH ×2 (12:22→17:28)
[2020-07-13] MEDS ORDERED: MAGNESIUM SULFATE 4 GM/100 ML BAG IV ONE (13:00)
[2020-07-13] MEDS: POLYETHYLENE GLYCOL 3350 17 GM PACKET PO SCH ×2 (13:08→17:29)
[2020-07-13] MEDS ORDERED: HYDROCORTISONE TOPICAL SCH (15:00)
[2020-07-13] MEDS: HYDROCORTISONE CRM 1% TUBE 30GM TOPICAL SCH ×2 (15:18→20:25)
[2020-07-14] MEDS: HYDROmorphone 1 MG/ML SYRINGE IV PRN ×4 (00:01→11:11)
[2020-07-14] MEDS: PYRIDOSTIGMINE BROMIDE 10 MG/2 ML ML IV SCH ×3 (00:02→12:06)
[2020-07-14] MEDS: POLYETHYLENE GLYCOL 3350 17 GM PACKET PO SCH ×4 (00:12→18:04)
[2020-07-14] MEDS: INSULIN LISPRO 1 UNIT/0.01 ML UNIT SQ SCH ×5 (00:12→21:44)
[2020-07-14] MEDS: 0.9 % SODIUM CHLORIDE 1,000 ML IV SCH ×5 (03:40→19:10)
[2020-07-14] MEDS: 0.9 % SODIUM CHLORIDE 10 ML SYRINGE IV SCH ×3 (05:58→21:46)
[2020-07-14 06:53] LABS: ALT/SGPT 38 U/l (0-40); AST/SGOT 20 U/l (0-37); Albumin 3.2 gm/dL (3.2-5.2); Albumin/Globulin Ratio 1.4 (1.0-2.3); Alkaline Phosphatase 76 U/L (39-117); Bilirubin,Direct < 0.2 mg/dL (0.0-0.3); Bilirubin,Total < 0.2 mg/dL (0.0-1.0); Blood Urea Nitrogen 11 mg/dl (6-20); Calcium 7.2 mg/dl (8.6-10.4); Carbon Dioxide 28 mmol/L (22-30); Chloride 101 mmol/L (96-108); Globulin 2.3 gm/dL (2.2-3.7); Glomerular Filtration Rate 100; Glucose 209 mg/dL (70-105); Lactate Dehydrogenase 223 U/L (94-250); Uric Acid 4.6 mg/dL (2.5-8.0)
[2020-07-14 07:00] LABS: Phosphorous 2.1 mg/dL (2.7-4.5); Triglycerides 444 mg/dl (<150)
[2020-07-14] MEDS: PANTOPRAZOLE 40 MG VIAL IV SCH ×2 (07:10→17:14)
[2020-07-14] MEDS: LEVOTHYROXINE 100 MCG VIAL IV SCH (07:11)
--- NOTE | 2020-07-14 08:21 | XRay Report ---
CLINICAL INFORMATION: follow-up of small bowel obstruction COMPARISON: 07/13/2020 FINDINGS: The stomach and multiple loops of proximal small bowel are mildly dilated but this is improved from yesterday's study. There is more gas in the distal small bowel. No free air. IMPRESSION: Improving partial small bowel obstruction pattern Interpreted and Authenticated by: All Lundberg 07/14/20
[2020-07-14] MEDS: methylPREDNISolone SOD SUCC 125 MG/2 ML VIAL IV SCH (09:31)
[2020-07-14] MEDS: ENOXAPARIN 40 MG/0.4 ML SYRINGE SQ SCH (09:32)
[2020-07-14] MEDS: HYDROCORTISONE CRM 1% TUBE 30GM TOPICAL SCH ×3 (09:33→20:45)
[2020-07-14] MEDS ORDERED: PROMETHAZINE 25 MG TABLET PO PRN (13:52)
--- NOTE | 2020-07-14 13:52 | General Surgery Progress Note ---
SUBJECTIVE Subjective Patient information: Note initiated : 07/14/20 at 1:47 pm Service Date, if different from initiated Date: [] Patient: Dayanna Guo 59 y/o F admitted on 07/12/20 for abdominal pain. Chief Complaint: [] Principal diagnosis: partial small bowel obstruction Interval history: patient continues to improve. She has had increase volume output of stool and gas through her stoma. She has tolerated clear liquid diet without difficulty. She's not had any problems taking the MiraLAX. Her pain is significantly improved. She denies nausea. Calcium 7.2, BUN 11, creatinine 0.6. Abdominal x-ray shows decrease in the amount of small bowel distention proximally and distally. Constitutional Vitals: Vital Signs Temp Pulse Resp BP Pulse Ox 98.5 F 80 18 110/62 93 07/14/20 12:00 07/14/20 12:00 07/14/20 12:00 07/14/20 12:00 07/14/20 12:00 Period Temp Pulse Resp BP Sys/Archuleta Pulse Ox Last 24 Hr 98.0 F-99.2 F 77-106 12-22 110-151/62-86 93-98 Intake and Output 07/13/20 07/14/20 07/14/20 21:59 05:59 13:59 Intake Total 1920 1485 1986 Output Total 400 1525 1400 Balance 1520 -40 586 Weight 245 lb Intake & Output: Intake & Output 07/13/20 07/14/20 07/14/20 21:59 05:59 13:59 Intake Total 1920 1485 1986 Output Total 400 1525 1400 Balance 1520 -40 586 Weight 245 lb Intake: IV 1100 925 946 Sodium Chloride 0.9% 1,000 ml @ 1000 925 946 125 mls/hr IV .Q8H [facility] Rx#: [id number] Oral 639 [id number] 2040 Output: Void Amount 400 1100 1200 Stool 425 200 Other: Meal Lunch Breakfast Percent of Meal Consumed 100% 75% Feeding Ability Independent Urine Appearance Clear Clear Clear Urine Color Bright Yellow Bright Yellow Bright Yellow Urine Odor Normal Normal Normal Stool Size Small Small Stool Color Brown Brown Brown Stool Consistency Soft Liquid Soft # Bowel Movements 1 Head Head exam: Present atraumatic, normal inspection and normocephalic Eye Eye exam: Present EOMI and normal appearance Pupils: Present normal accommodation and PERRL ENT ENT exam: Present normal exam and normal oropharynx Neck Neck exam: Present full ROM; Absent tenderness Respiratory Respiratory exam: Present normal respiratory exam and CTAB; Absent rales, rhonchi and wheezes Cardiovascular Cardiovascular exam: Present RRR, +S1, +S2 and tachycardia; Absent JVD GI/Abdominal GI/Abdominal exam: Present normal bowel sounds, soft and distended (abdomen is less distended than on yesterday) Extremities Exam Extremities exam: Present normal capillary refill and neurovascular intact; Absent calf tenderness and pedal edema Neurological Exam Neurological exam: Present alert, CN II-XII intact, normal gait, oriented X3 and reflexes normal Psychiatric Psychiatric exam: Present anxious, normal affect and normal mood Skin Skin exam: Present erythema and rash Additional comments: rash on bilateral extremities is actually improved since last evening A/P Assessment and plan (1) Primary chronic pseudo-obstruction of small intestine: Status: Acute (2) 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: Status: Acute (3) Myasthenia gravis: Status: Chronic (4) Diabetes mellitus type 2, uncontrolled: Status: Chronic Qualifiers: Coma presence: without coma (5) LA (obstructive sleep apnea): Status: Chronic (6) Hypertension: Status: Chronic Qualifiers: Hypertension type: essential hypertension Qualified Code(s): I10 - Essential (primary) hypertension (7) Chronic use of steroids: Status: Chronic Comment: for myasthenia gravis; 10+ years Narrative A/P Narrative: restart home oral medications Citrate of magnesia one bottle tonight Advanced to soft diet Trial of meperidine orally for pain control Time Spent With Patient Time: Total time spent is greater than 50% in coordination of care (as documented) at patient's floor/unit and/or counseling patient:
[2020-07-14] MEDS ORDERED: CITRATE OF MAGNESIA PO ONE (13:55)
[2020-07-14] MEDS ORDERED: CYCLOBENZAPRINE 10 MG TABLET PO PRN (14:02)
[2020-07-14] MEDS ORDERED: ONDANSETRON 4 MG ODT TABLET SL PRN (14:11)
[2020-07-14] MEDS: CALCITRIOL 0.25 MCG CAPSULE PO SCH ×2 (14:34→20:44)
[2020-07-14] MEDS: MEPERIDINE 50 MG TABLET PO PRN ×2 (14:38→19:05)
[2020-07-14] MEDS: metFORMIN 500 MG TABLET PO SCH (17:14)
[2020-07-14] MEDS: GABAPENTIN 300 MG CAPSULE PO SCH ×2 (17:14→20:44)
[2020-07-14] MEDS: PYRIDOSTIGMINE BROMIDE 10 MG/2 ML ML IM SCH (18:03)
[2020-07-14] MEDS: DULoxetine 30 MG CAPSULE PO SCH (20:44)
[2020-07-14] MEDS: MAGNESIUM OXIDE 400 MG TABLET PO SCH (20:44)
[2020-07-14] MEDS ORDERED: INSULIN LISPRO 1 UNIT/0.01 ML UNIT SQ ONE (21:48)
[2020-07-15] MEDS: PYRIDOSTIGMINE BROMIDE 10 MG/2 ML ML IM SCH ×3 (00:17→11:58)
[2020-07-15] MEDS: MEPERIDINE 50 MG TABLET PO PRN ×3 (00:17→11:56)
[2020-07-15] MEDS: POLYETHYLENE GLYCOL 3350 17 GM PACKET PO SCH ×2 (00:17→05:52)
[2020-07-15] MEDS: 0.9 % SODIUM CHLORIDE 1,000 ML IV SCH ×2 (03:08→12:00)
[2020-07-15] MEDS: 0.9 % SODIUM CHLORIDE 10 ML SYRINGE IV SCH ×3 (04:01→14:02)
[2020-07-15] MEDS: PANTOPRAZOLE 40 MG VIAL IV SCH (07:16)
[2020-07-15] MEDS: INSULIN LISPRO 1 UNIT/0.01 ML UNIT SQ SCH ×2 (07:20→11:57)
[2020-07-15 07:29] LABS: ALT/SGPT 35 U/l (0-40); AST/SGOT 17 U/l (0-37); Albumin 3.2 gm/dL (3.2-5.2); Albumin/Globulin Ratio 1.4 (1.0-2.3); Alkaline Phosphatase 72 U/L (39-117); Bilirubin,Direct < 0.2 mg/dL (0.0-0.3); Bilirubin,Total < 0.2 mg/dL (0.0-1.0); Blood Urea Nitrogen 7 mg/dl (6-20); Calcium 6.9 mg/dl (8.6-10.4); Carbon Dioxide 30 mmol/L (22-30); Chloride 102 mmol/L (96-108); Globulin 2.3 gm/dL (2.2-3.7); Glomerular Filtration Rate 96; Glucose 139 mg/dL (70-105); Lactate Dehydrogenase 244 U/L (94-250); Uric Acid 4.8 mg/dL (2.5-8.0)
[2020-07-15] MEDS ORDERED: LEVOTHYROXINE 125 MCG TABLET PO SCH (07:30)
[2020-07-15 07:32] LABS: Phosphorous 2.1 mg/dL (2.7-4.5); Triglycerides 564 mg/dl (<150)
[2020-07-15] MEDS ORDERED: predniSONE 20 MG TABLET PO SCH (08:00)
[2020-07-15] MEDS: metFORMIN 500 MG TABLET PO SCH (08:44)
[2020-07-15] MEDS: HYDROCORTISONE CRM 1% TUBE 30GM TOPICAL SCH (08:44)
[2020-07-15] MEDS: GABAPENTIN 300 MG CAPSULE PO SCH ×2 (08:44→14:02)
[2020-07-15] MEDS: CALCITRIOL 0.25 MCG CAPSULE PO SCH (08:44)
[2020-07-15] MEDS: DULoxetine 30 MG CAPSULE PO SCH (08:44)
[2020-07-15] MEDS: ENOXAPARIN 40 MG/0.4 ML SYRINGE SQ SCH (08:44)
[2020-07-15] MEDS: MAGNESIUM OXIDE 400 MG TABLET PO SCH (08:44)
--- NOTE | 2020-07-15 08:58 | XRay Report ---
CLINICAL INFORMATION: follow-up of small bowel obstruction COMPARISON: 07/14/2020 FINDINGS: Mild dilatation of the stomach and proximal small bowel but this is improved. More gas is seen in the distal small bowel. No free air or soft tissue tissue mass. IMPRESSION: Improvement in partial small bowel obstruction Interpreted and Authenticated by: All Lundberg 07/15/20
--- NOTE | 2020-07-15 11:36 | Discharge Summary ---
Discharge Provider Provider Patient information: Note initiated : 07/15/20 at 11:26 am Service Date, if different from initiated Date: [] Patient: Dayanna Guo 59 y/o F admitted on 07/12/20 for abdominal pain. Chief Complaint: [] Date of admission: 07/12/20 19:17 Discharge date: 07/15/20 Primary care physician: Douglas Haque Admitting clinician: Bertha Currie Attending physician on admission: Bertha Currie Consults: 07/12/20 Consult to Physician [CONS] Stat Comment: Consulting Provider: Bertha Currie Reason For Exam: Physician to Consult Attending physician on discharge: Bertha Currie Discharging clinician: Bertha Currie COURSE Hospital Course Hospital course: 59-year-old female with history of recurrent bowel obstruction. 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 Patient gives a history of decreased output through her stoma for 18 hours. She had increased cramping abdominal pain with nausea vomiting. She was seen in the emergency room department was noted that she had massively dilated stomach duodenum and small bowel compatible with partial obstruction. She had a very small amount of liquid stool in her stoma appliance. Patient was admitted. She was hydrated and given medication for pain. She was also given her pyridostigmine and started on MiraLAX. Her bowel movements slowly increased and follow-up x-rays showed decrease in the amount of gas with decompression of her bowel distention. She is now tolerating a soft diet and is having regular large-volume bowel movements. Her abdominal x-rays is significantly improved. Patient is stable enough for discharge home. There will be no changes in her medication regimen Discharge diagnosis: .partial small bowel obstruction Secondary discharge diagnosis: primary chronic pseudoobstruction of small intestines Ileostomy status Mild dehydration. Diabetes mellitus Myasthenia gravis Obstructive sleep apnea Hypertension Reason for admission: partial small bowel obstruction Procedures: none Pertinent studies/significant findings: none Complications: none Time Spent with Patient Time attestation: Total time spent providing and/or coordinating discharge services: Physical Examination Vital Signs Vital signs: Temp Pulse Resp BP Pulse Ox 98.4 F 85 18 152/91 96 07/15/20 07:54 07/15/20 07:54 07/15/20 07:54 07/15/20 07:54 07/15/20 07:54 General physical appearance General physical exam: well developed, well nourished, no distress, no pain, chronically ill and obese Eyes Eye exam: PERRL and normal ocular movement ENT ENT exam: normal mucosa and no hearing loss Neck Neck exam: no masses, no bruits, trachea midline and no lymphadenopathy Respiratory Respiratory exam: normal expansion, normal respiratory effort, clear to percus tayo and clear to auscultation Abdomen Abdomen: Present soft, non tender, bowel sounds (hyperactive bowel sounds), surgical scars (healed surgical scar is) and distended Integumentary Integumentary: Present no growths and other (rash over the dorsal aspect of both forearms) Neurologic Neurologic: Present normal coordination and normal sensation Psychiatric Psychiatric: Present oriented to time, oriented to person, oriented to place, speech is normal and memory intact Discharge Plan Patient/Caregiver Discharge Instructions Activity: increase activity as tolerated and wear oxygen at night Diet: Regular Diet Prescriptions: Continued pyridostigmine bromide 5 mg/mL solution 10 mg IM Q6H Qty: 240 RF: 5 (DME) filter needles 19 x 1 1/2" 19 x 1 1/2 " needle See Rx Instructions .ROUTE .MEDSUPPLY Qty: 100 RF: 1 (DME) BD SafetyGlide Syringe 3 mL 25 gauge x 1" syringe See Rx Instructions .ROUTE .MEDSUPPLY Qty: 100 RF: 1 gabapentin 300 mg capsule 300 mg PO QID Qty: 120 RF: 3 prednisone 20 MG tablet 20 mg PO QAMCC Qty: 4 RF: 0 duloxetine 30 MG capsule 30 mg PO BID RF: 0 levothyroxine 125 MCG tablet 250 mcg PO QAMAC RF: 0 calcitriol 0.25 MCG capsule 0.5 mcg PO TID RF: 0 promethazine 25 MG tablet 25 mg PO Q6HP PRN (Reason: Nausea) Qty: 60 RF: 3 insulin glargine 1 UNIT/0.01 ML unit 10 unit SQ BID RF: 0 acetaminophen 325 MG tablet 650 mg PO Q6HP PRN (Reason: Pain/Fever > 101) RF: 0 Accu-Chek 1 EACH strip 1 each FS ACHS RF: 0 cyclobenzaprine 10 MG tablet 10 mg PO BIDP PRN (Reason: Spasms) RF: 0 magnesium oxide 250 MG tablet 500 mg PO BID RF: 0 promethazine 25 MG suppository 25 mg CO Q6HP PRN (Reason: nausea vomitting) RF: 0 ondansetron 4 MG tablet 4 mg SL Q4HP PRN (Reason: Nausea) RF: 0 metformin 500 MG tablet 500 mg PO BID RF: 0 Follow Up Plan Follow up with: Douglas Haque MD [Primary Care Provider] - Patient Disposition: Home, Self-Care Prognosis: Good Rehab Potential: Good I certify that the patient requires SNF services: No Overall status at discharge: patient is progressing back to baseline Discharge Orders: Discharge Order (Routine); Ordered 07/15/20 Ordered By: Bertha Currie Pending Pending Pending: Resuscitation Status Full Code Diet GI Soft/Transitional Start Unique Oct 1610 Calcitriol (Rocaltrol) 0.5 mcg PO TID [facility] Last Admin: 07/15/20 08:44 Dose: 0.5 mcg Documented by: Admin: 07/14/20 20:44 Dose: 0.5 mcg Documented by: Admin: 07/14/20 14:34 Dose: 0.5 mcg Documented by: ANGELY Cyclobenzaprine HCl (Flexeril) 10 mg PO BIDP PRN PRN Reason: Spasms Last Admin: 07/15/20 08:57 Dose: 10 mg Documented by: VALERIA Diagnostic Test (Pha) (Accu-Chek) 1 each FS ACHS [facility] Last Admin: 07/15/20 07:19 Dose: 1 each Documented by: Admin: 07/14/20 20:44 Dose: 1 each Documented by: THAIS Duloxetine HCl (Cymbalta) 30 mg PO BID [facility] Last Admin: 07/15/20 08:44 Dose: 30 mg Documented by: Admin: 07/14/20 20:44 Dose: 30 mg Documented by: THAIS Enoxaparin Sodium (Lovenox) 40 mg SQ DAILY [facility] Last Admin: 07/15/20 08:44 Dose: 40 mg Documented by: Admin: 07/14/20 09:32 Dose: 40 mg Documented by: Admin: 07/13/20 09:32 Dose: 40 mg Documented by: RACHELLE Gabapentin (Neurontin) 300 mg PO QID [facility] Last Admin: 07/15/20 08:44 Dose: 300 mg Documented by: Admin: 07/14/20 20:44 Dose: 300 mg Documented by: Admin: 07/14/20 17:14 Dose: 300 mg Documented by: RACHELLE Hydrocortisone (Hc Crm 1%) 1 dose TOPICAL TID [facility] Last Admin: 07/15/20 08:44 Dose: 1 dose Documented by: Admin: 07/14/20 20:45 Dose: 1 dose Documented by: Admin: 07/14/20 14:35 Dose: 1 dose Documented by: Admin: 07/14/20 09:33 Dose: 1 dose Documented by: Admin: 07/13/20 20:25 Dose: 1 dose Documented by: Admin: 07/13/20 15:18 Dose: 1 dose Documented by: ANGELY Hydromorphone HCl (Dilaudid) 1 mg IV Q2HP PRN; Protocol PRN Reason: Per Pain Protocol Last Admin: 07/14/20 11:11 Dose: 1 mg Documented by: Admin: 07/14/20 07:12 Dose: 1 mg Documented by: Admin: 07/14/20 03:39 Dose: 1 mg Documented by: Admin: 07/14/20 00:01 Dose: 1 mg Documented by: Admin: 07/13/20 20:18 Dose: 1 mg Documented by: Admin: 07/13/20 15:18 Dose: 1 mg Documented by: Admin: 07/13/20 12:22 Dose: 1 mg Documented by: Admin: 07/13/20 08:46 Dose: 1 mg Documented by: Admin: 07/13/20 04:57 Dose: 1 mg Documented by: СЕРГЕЙ Admin: 07/13/20 01:54 Dose: 1 mg Documented by: СЕРГЕЙ Admin: 07/12/20 19:48 Dose: 1 mg Documented by: СЕРГЕЙ Sodium Chloride (Sodium Chloride 0.9%) 1,000 mls @ 125 mls/hr IV .Q8H [facility] Last Admin: 07/15/20 03:08 Dose: 125 mls/hr Documented by: Infusion: 07/15/20 03:07 Dose: 125 mls/hr Documented by: Admin: 07/14/20 19:10 Dose: 125 mls/hr Documented by: Infusion: 07/14/20 19:10 Dose: 125 mls/hr Documented by: Admin: 07/14/20 17:47 Dose: Not Given Documented by: Admin: 07/14/20 11:14 Dose: 125 mls/hr Documented by: Infusion: 07/14/20 11:14 Dose: 125 mls/hr Documented by: Admin: 07/14/20 09:34 Dose: Not Given Documented by: Admin: 07/14/20 03:40 Dose: 125 mls/hr Documented by: Infusion: 07/14/20 03:40 Dose: 125 mls/hr Documented by: Admin: 07/13/20 20:15 Dose: 125 mls/hr Documented by: Infusion: 07/13/20 20:15 Dose: 125 mls/hr Documented by: Admin: 07/13/20 17:30 Dose: Not Given Documented by: Admin: 07/13/20 13:32 Dose: 125 mls/hr Documented by: Infusion: 07/13/20 12:00 Dose: 125 mls/hr Documented by: Admin: 07/13/20 09:32 Dose: Not Given Documented by: Admin: 07/13/20 04:00 Dose: 125 mls/hr Documented by: СЕРГЕЙ Infusion: 07/13/20 03:53 Dose: 125 mls/hr Documented by: СЕРГЕЙ Admin: 07/12/20 19:53 Dose: 125 mls/hr Documented by: СЕРГЕЙ Insulin Human Lispro (Humalog) 0 unit SQ ACHS [facility]; Protocol Last Admin: 07/15/20 07:20 Dose: Not Given Documented by: Admin: 07/14/20 21:44 Dose: 4 units Documented by: THAIS Levothyroxine Sodium (Synthroid) 250 mcg PO QAMAC [facility] Last Admin: 07/15/20 07:16 Dose: 250 mcg Documented by: ASMNajma Magnesium Oxide (Magnesium Oxide) 400 mg PO BID [facility] Last Admin: 07/15/20 08:44 Dose: 400 mg Documented by: Admin: 07/14/20 20:44 Dose: 400 mg Documented by: THAIS Meperidine HCl (Demerol) 50 mg PO Q4HP PRN; Protocol PRN Reason: PAIN LEVEL 3-6 Last Admin: 07/15/20 05:53 Dose: 50 mg Documented by: Admin: 07/15/20 00:17 Dose: 50 mg Documented by: Admin: 07/14/20 19:05 Dose: 50 mg Documented by: Admin: 07/14/20 14:38 Dose: 50 mg Documented by: ANGELY Metformin HCl (Glucophage) 500 mg PO BIDCC [facility] Last Admin: 07/15/20 08:44 Dose: 500 mg Documented by: Admin: 07/14/20 17:14 Dose: 500 mg Documented by: RACHELLE Pantoprazole Sodium (Protonix) 40 mg IV BIDAC [facility] Last Admin: 07/15/20 07:16 Dose: 40 mg Documented by: Admin: 07/14/20 17:14 Dose: 40 mg Documented by: Admin: 07/14/20 07:10 Dose: 40 mg Documented by: Admin: 07/13/20 16:36 Dose: 40 mg Documented by: Admin: 07/13/20 08:19 Dose: 40 mg Documented by: RACHELLE Prednisone (Prednisone) 20 mg PO [facility] Last Admin: 07/15/20 08:44 Dose: 20 mg Documented by: VALERIA Pyridostigmine [place] (Regonol) 10 mg IM Q6H [facility] Last Admin: 07/15/20 05:52 Dose: 10 mg Documented by: Admin: 07/15/20 00:17 Dose: 10 mg Documented by: Admin: 07/14/20 18:03 Dose: 10 mg Documented by: RACHELLE Sodium Chloride (Saline Flush) 10 ml IV Q8 [facility] Last Admin: 07/15/20 05:53 Dose: 10 ml Documented by: Admin: 07/15/20 04:01 Dose: Not Given Documented by: Admin: 07/14/20 21:46 Dose: Not Given Documented by: Admin: 07/14/20 13:52 Dose: Not Given Documented by: Admin: 07/14/20 05:58 Dose: Not Given Documented by: [email or web address] Admin: 07/13/20 20:25 Dose: Not Given Documented by: Admin: 07/13/20 13:19 Dose: 10 ml Documented by: Admin: 07/13/20 05:06 Dose: Not Given Documented by: СЕРГЕЙ Admin: 07/12/20 21:17 Dose: Not Given Documented by: СЕРГЕЙ Shift Summary 07/15/20 04:19 Shift Summary by Sakshi Fermin The patient is alert and oriented times four and requires 1 guarded assist for transfers to the [facility] with a FWW and gaitbelt and refused to ambulate in the halls last evening. She is independent with her ileostomy care and is voiding quantity sufficient, NS infusing to portacath in left upper chest at 125 ml/hr. She has tolerated her GI soft diet well, no nausea, copious amounts of liquid brown stool this shift via ostomy, VSS, RA while awake and 2 LPM NC while sleeping per her baseline and use at home. She received 3 doses of Demerol 50 mg PO for c/o 5/10 right shoulder pain this shift and this managed it well. Accuchecks were changed to AC/HS from every 6 hours with her current diet intake and is still on medium sliding scale, HS CBG 200 and her Miralax given in apple juice per her request. Skin is pink and within normal limits under breast folds and abdominal panus after use of antifungal powder and free from odor at HS with hygiene care given. Plan is to discharge to home with spouse when able, will update shift summary report at bedside. Initialized on 07/15/20 04:19 - END OF NOTE
[2020-07-15] MEDS ORDERED: CYCLOBENZAPRINE 10 MG TABLET PO PRN ×2 (11:57→11:59)
[2020-07-15] MEDS ORDERED: HEPARIN SODIUM,PORCINE/PF 500 UNIT/5 ML SYRINGE IV ONE (12:15)
== END 2020-07-15 14:30 | disposition home or self-care (01) | DRG 389 ==
LOC: ED 13:46 → MEDSUR 19:17
PROVIDERS: ADMIT Family Medicine Adult Medicine; ATTEND Family Medicine Adult Medicine

== ENCOUNTER 2020-09-14 16:39 | Inpatient (IN) ==
[2020-09-14 19:38] LABS: Appearance,Urine CLEAR (Clear); Bacteria,Urine MOD /hpf (0); Bilirubin,Urine Negative (Negative); Color,Urine YELLOW; Culture Indicated,Urine yes; Glucose,Urine (UA) Negative (Negative); Ketones,Urine Negative (Negative); Leukocyte Esterase,Urine 250 /ug (Negative); Mucus,Urine FEW /hpf; Nitrate,Urine POS (Negative); Protein,Urine Negative (Negative); Specific Gravity,Urine 1.014 (1.000-1.035); Urine Blood Negative (Negative); Urine Hyaline Cast 7 /lph (0-2); Urine RBC 2 /hpf (0-1); Urine Squamous Epithelial Cell 1 /hpf (0-4); Urine WBC 12 /hpf (0-4); Urobilinogen,Urine Negative
[2020-09-14] MEDS ORDERED: cefTRIAXone 1 GM VIAL IV ONE (20:08)
[2020-09-14] MEDS ORDERED: ACETAMINOPHEN 325 MG TABLET PO ONE (20:10)
[2020-09-14 20:41] LABS: Basophils # (Auto) 0.04 K/mcL (0.00-0.20); Basophils % (Auto) 0.5 % (0.0-2.0); Eosinophils # (Auto) 0.03 K/mcL (0.00-0.70); Eosinophils % (Auto) 0.4 % (0.0-7.0); Hematocrit 40.1 % (36.0-48.0); Hemoglobin 12.8 g/dL (12.0-15.0); Lymphocytes # (Auto) 1.48 K/mcL (1.50-4.80); Mean Cell Volume 91.6 fL (80.0-100.0); Mean Corpuscular HGB Conc 31.9 g/dL (31.0-36.0); Mean Platelet Volume 9.8 fL (7.4-10.4); Monocytes # (Auto) 0.42 K/mcL (0.10-0.90); Monocytes % (Auto) 5.1 % (1.0-12.0); Platelet Count 258 K/mcL (140-440); RBC 4.38 M/mcL (4.00-5.20); Red Cell Distribution Width 12.6 % (11.5-14.5); WBC 8.2 K/mcL (4.5-11.0)
--- NOTE | 2020-09-14 21:05 | Emergency Department Note ---
Weakness HPI General Chief complaint: Weakness Stated complaint: body aches Time Seen by Provider: 09/14/20 16:45 Source: patient Mode of arrival: wheelchair Limitations: no limitations History of Present Illness HPI Narrative: Narrative: 59-year-old female presents with generally feeling poor for the last 4-1/2 days or so. Has body aches all over. Also has chills. Unknown fever. No nausea, vomiting, or diarrhea. No abdominal pain or back pain. States most of the pain is all over her joints and it is usually arthritis but this is worse than usual and she also has a dry cough. States she just does not feel well in general. Decreased appetite. Also has decrease in taste and smell. States this is chronic but she thinks it is worse than usual. Is concerned about Covid although she denies any ill contacts or exposure or travel. No shortness of breath or difficulty breathing. States earlier she fe lt like everything looked funny, like macaroni. States she does not know how to describe it. States she just feels like she is sick and something is wrong. States last time she felt like this her calcium was really low. Would like to have her labs checked. Related Data Home Medications Medication Instructions Recorded Confirmed duloxetine 30 mg PO BID 11/30/16 07/12/20 levothyroxine 250 mcg PO QAMAC 08/20/17 07/12/20 calcitriol 0.5 mcg PO TID 02/11/19 07/12/20 insulin glargine 10 unit SQ BID 09/30/19 07/12/20 cyclobenzaprine 10 mg PO BIDP PRN 12/13/19 07/12/20 magnesium oxide 500 mg PO BID 12/13/19 07/12/20 ondansetron 4 mg SL Q4HP PRN 12/24/19 07/12/20 promethazine 25 mg HI Q6HP PRN 12/24/19 07/12/20 metformin 500 mg PO BID 07/12/20 07/12/20 Previous Rx's Medication Instructions Recorded prednisone 20 mg PO QAC #4 tab 05/18/16 promethazine 25 mg PO Q6HP PRN #60 tab 02/13/19 acetaminophen 650 mg PO Q6HP PRN tab 10/05/19 Accu-Chek 1 each FS ACHS strip 02/20/20 pyridostigmine bromide 5 mg/mL 10 mg IM Q6H #240 ml 01/04/20 injection solution filter needles 19 x 1 1/2" #100 each 04/06/20 gabapentin 300 mg capsule 300 mg PO QID #120 cap 04/25/20 syringe with needle 3 mL 25 gauge See Rx Instructions .ROUTE 08/31/20 x 1" .COMPLEX #100 unspecified cephalexin [Keflex] 500 mg PO Q12H #14 cap 09/14/20 Allergies Allergy/AdvReac Type Severity Reaction Status Date / Time Sulfa (Sulfonamide Allergy Severe Anaphylaxis Verified 09/14/20 16:42 Antibiotics) adhesive tape AdvReac Mild Blister Verified 09/14/20 16:42 metoclopramide [From Reglan] AdvReac Mild Anxiety Verified 09/14/20 16:42 steri strips AdvReac Mild Blister Uncoded 12/02/19 06:48 Review of Systems ROS ROS Narrative: Narrative: All systems ED: reviewed and negative except as stated. [facility] Narrative Patient History Narrative: Narrative: Medical/Surgical/Family History All Active Problems (Updated 09/14/20 @ 21:44 by SAIDA Sheriff) Body aches (Acute) URI (upper respiratory infection) (Acute) Acute UTI (Acute) Hypercalcemia (Acute) Hyponatremia (Acute) Elevated LFTs (Acute) Small bowel obstruction (Acute) Dehydration (Acute) Primary chronic pseudo-obstruction of small intestine (Acute) UTI (urinary tract infection) (Acute) Hypocalcemia (Acute) Nausea & vomiting (Acute) Severe sepsis (Acute) 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 (Acute) Chronic, continuous use of opioids (Chronic) Myasthenia gravis (Chronic) Chronic intestinal pseudo-obstruction (Chronic) Recurrent intestinal obstruction (Chronic) Diabetes mellitus type 2, uncontrolled (Chronic) LA (obstructive sleep apnea) (Chronic) Hypertension (Chronic) Obesity, Class II, BMI 35-39.9 (Chronic) Low blood magnesium level (Chronic) Abdominal pain (Chronic) Chronic use of steroids (Chronic) Abnormal liver enzymes (Chronic) Hypothyroidism (Chronic) Sarcoidosis (Chronic) Polyglandular autoimmune syndrome (Chronic) Recurrent abdominal pain (Chronic) Medical History (Updated 09/14/20 @ 21:44 by SAIDA Sheriff) Abdominal pain (Resolved) Abdominal pain (Chronic) Abdominal wound dehiscence (Resolved) Abnormal liver enzymes (Chronic) Achalasia and cardiospasm (Resolved) Acute respiratory insufficiency (Resolved) Adverse reaction to drug (Resolved) Anaphylaxis (Resolved) Bowel obstruction (Resolved) 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) Chronic use of steroids (Chronic) for myasthenia gravis; 10+ years Chronic, continuous use of opioids (Chronic) Constipation due to neurogenic bowel (Resolved) Constipation due to pain medication therapy (Resolved) Dehydration (Resolved) Dehydration (Resolved) Diabetes mellitus type 2, uncontrolled (Chronic) Encounter for care related to Port-a-Cath (Resolved) Fecal impaction (Resolved) Foot sprain (Resolved) Hypercalcemia (Resolved) Hypertension (Chronic) Hypocalcemia (Resolved) Hyponatremia (Resolved) Hypothyroidism (Chronic) Ileus (Resolved) Infiltrate of lung present on imaging of chest (Resolved) Intractable vomiting (Resolved) Lactic acid acidosis (Resolved) Low blood magnesium level (Chronic) Myasthenia gravis (Chronic) Nausea (Resolved) Nausea & vomiting (Resolved) Nausea & vomiting (Resolved) Nausea and vomiting (Resolved) Obesity, Class II, BMI 35-39.9 (Chronic) Obstruction of descending colon (Resolved) LA (obstructive sleep apnea) (Chronic) Pancreatitis (Resolved) Parastomal hernia with obstruction, without gangrene (Resolved) Partial intestinal obstruction, unspecified as to cause (Resolved) Partial small bowel obstruction (Resolved) Pneumonia (Resolved) 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) Pseudoobstruction of colon (Resolved) Pyelonephritis (Resolved) Recurrent abdominal pain (Chronic) Recurrent intestinal obstruction (Chronic) many recurrences; many surgical interventions Sarcoidosis (Chronic) Sepsis (Resolved) Sepsis associated hypotension (Resolved) Sepsis with acute hypoxic respiratory failure (Resolved) Severe sepsis (Resolved) Sigmoid volvulus (Resolved) Sinus tachycardia (Resolved) Sinus tachycardia (Resolved) Small bowel obstruction (Resolved) Small bowel obstruction (Resolved) Small bowel obstruction (Resolved) Small bowel obstruction (Resolved) Small bowel obstruction (Resolved) Small bowel obstruction (Resolved) Small bowel obstruction due to adhesions (Resolved) Small bowel obstruction due to postoperative adhesions (Resolved) Small bowel obstruction, partial (Resolved) Supraventricular tachycardia (Resolved) UTI (urinary tract infection) (Resolved) UTI (urinary tract infection) (Resolved) Volvulus of sigmoid colon (Resolved) Surgical History History of exploratory laparotomy (Acute) 10/17/2017-with adhesiolysis History of exploratory laparotomy (Acute) 12/01/2017-with adhesiolysis History of exploratory laparotomy (Acute) 07/18/2018 History of exploratory laparotomy (Acute) 08/10/2018-Exploratory laparotomy with small bowel adhesiolysis and incisional hernia repair with mesh graft S/P ileostomy (Resolved) Family History Father CAD (coronary artery disease) Mother CAD (coronary artery disease) Grandfather CVA (cerebral vascular accident) Grandmother CVA (cerebral vascular accident) Social History Smoking Status: Never smoker Exam Narrative Narrative: Narrative: General Limitations: no limitations General appearance: Present alert and in no apparent distress Head Head: Present atraumatic and normocephalic Eye Eye: Present normal appearance; Absent conjunctival injection ENT ENT: Present normal exam, mucous membranes moist, TM's normal bilaterally and normal external ear exam; Absent nasal congestion and nasal tones Neck Neck: Present normal inspection and trachea midline; Absent lymphadenopathy Chest Chest: Present symmetric chest wall rise Respiratory Respiratory: Present normal lung sounds bilaterally and other (Dry cough present); Absent respiratory distress, rales/crackles, wheezes, stridor and accessory muscle use Cardiovascular Cardiovascular: Present regular rate and normal heart sounds Extremities Extremities: Present normal inspection and normal capillary refill; Absent pedal edema Neurological Neurological: Present alert and oriented X3 Psychiatric Psychiatric: Present normal affect and normal mood Skin Skin: Present warm (WNL), dry, intact and normal color Course Course Course Narrative: Case discussed with supervising ER physician Dr. Alfred and care assumed by Dr. Alfred at 2145 due to shift change. Patient does have a calcium of 15.9. States that they recently doubled her calcitriol dose from 3 times a day to 6 times a day. We will stop this for 48 hours and give her a liter of fluid and some Lasix to help bring it down. We also have her follow-up with her primary care provider within the next 24 hours. We are going to go ahead and treat her UTI as well. Was given a gram of Rocephin we will place her on Keflex for 7 days. Vital Signs Vital signs: Vital Signs Temperature 97.3 F 09/14/20 16:39 Pulse Rate 86 09/14/20 16:39 Respiratory Rate 16 09/14/20 16:39 Blood Pressure 146/86 09/14/20 16:39 Pulse Oximetry (%) 98 09/14/20 16:39 Temperature 97.3 F 09/14/20 16:39 Pulse Rate 91 H 09/14/20 20:37 Respiratory Rate 16 09/14/20 20:37 Blood Pressure 175/95 09/14/20 20:37 Pulse Oximetry (%) 95 09/14/20 20:37 MDM MDM Narrative Medical decision making narrative: Narrative: Lab Data Lab results reviewed: Yes I reviewed the patient's lab results. Result diagrams: 09/14/20 20:00 09/14/20 20:00 Labs: Lab Results 09/14/20 09/14/20 09/14/20 Range/Units 17:58 20:00 20:00 WBC 8.2 (4.5-11.0) K/mcL RBC 4.38 (4.00-5.20) M/mcL Hgb 12.8 (12.0-15.0) g/dL Hct 40.1 (36.0-48.0) % MCV 91.6 (80.0-100.0) fL MCH 29.2 (26.0-34.0) pg MCHC 31.9 (31.0-36.0) g/dL RDW 12.6 (11.5-14.5) % Plt Count 258 (140-440) K/mcL MPV 9.8 (7.4-10.4) fL Neut % (Auto) 76.0 (38.0-78.0) % Lymph % (Auto) 18.0 (15.0-49.0) % [place] % (Auto) 5.1 (1.0-12.0) % Eos % (Auto) 0.4 (0.0-7.0) % Baso % (Auto) 0.5 (0.0-2.0) % Lymph # (Auto) 1.48 L (1.50-4.80) K/mcL [place] # (Auto) 0.42 (0.10-0.90) K/mcL Eos # (Auto) 0.03 (0.00-0.70) K/mcL Baso # (Auto) 0.04 (0.00-0.20) K/mcL Absolute Neutrophils 6.23 (1.80-8.00) K/mcL Sodium 138 (133-145) mmol/L Potassium 4.4 (3.3-5.1) mmol/L Chloride 97 (96-108) mmol/L Carbon Dioxide 33 H (22-30) mmol/L Anion Gap 8.0 (8.0-16.0) BUN 38 H (6-20) mg/dL Creatinine 1.8 H (0.6-1.1) mg/dL GFR Calculation 30 Glucose 147 H (70-105) mg/dL Calcium 15.8 H* (8.6-10.4) mg/dL Total Bilirubin 0.2 (0.1-1.0) mg/dL AST 14 (<32) U/L ALT 15 (<40) U/L Alkaline Phosphatase 69 (39-117) U/L Total Protein 6.4 (5.9-8.4) gm/dL Albumin 3.7 (3.2-5.2) gm/dL Globulin 2.7 (2.2-3.7) gm/dL Albumin/Globulin Ratio 1.4 (1.0-2.3) Urine Color Yellow Urine Appearance Clear (Clear) Urine pH 5.0 (5.0-9.0) Ur Specific [place] 1.014 (1.000-1.035) Urine Protein Negative (Negative) mg/dL Urine Glucose (UA) Negative (Negative) mg/dL Urine Ketones Negative (Negative) mg/dL Urine Occult Blood Negative (Negative) mg/dL Urine Nitrate Pos A (Negative) Urine Bilirubin Negative (Negative) mg/dL Urine Urobilinogen Negative mg/dL Ur Leukocyte Esterase 250 A (Negative) /ug Urine RBC 2 H (0-1) /hpf Urine WBC 12 H (0-4) /hpf Ur Squamous Epith Cells 1 (0-4) /hpf Urine Bacteria Mod A (0) /hpf Hyaline Casts 7 H (0-2) /lph Urine Mucus Few A (None) /hpf Ur Culture Indicated? yes Radiology Data Radiology results reviewed: Yes I reviewed the patient's radiology results. Discharge Plan Patient/Caregiver Discharge Instructions Pt seen by MELTER CLERK/PA only: Yes Clinical Impression: Body aches, URI (upper respiratory infection), Acute UTI, Hypercalcemia Instructions: COVID-19, Urinary Tract Infection in Women (ED), Upper Respiratory Infection (ED) Activity Restrictions/Additional Instructions: Keflex: 1 tab orally twice a day for 7 days. Take until gone. Stop the calcitriol for the next 48 hours. After resume 3 times a day rather than the 6 times a day as your calcium level is too high now. You also need to follow-up with your primary care provider for recheck within the next 48 hours. Increase oral fluids and rest. We did swab you for Covid and will return for several days. You do need to self quarantine at home until results returned and are negative and you are asymptomatic. However if your symptoms get worse such as shortness of breath or difficulty breathing, return to the ER for follow-up. Patient Disposition: Still a Patient Condition: Fair Follow up with: Douglas Haque MD [Primary Care Provider] - Prescriptions: New cephalexin [Keflex] 500 mg capsule 500 mg PO Q12H Qty: 14 RF: 0 No Action pyridostigmine bromide 5 mg/mL solution 10 mg IM Q6H Qty: 240 RF: 5 (DME) filter needles 19 x 1 1/2" 19 x 1 1/2 " needle See Rx Instructions .ROUTE .MEDSUPPLY Qty: 100 RF: 1 gabapentin 300 mg capsule 300 mg PO QID Qty: 120 RF: 3 syringe with needle [BD Luer-Archie Syringe] 3 mL 25 gauge x 1" syringe See Rx Instructions .ROUTE .COMPLEX Qty: 100 RF: 4 prednisone 20 MG tablet 20 mg PO QAMCC Qty: 4 RF: 0 duloxetine 30 MG capsule 30 mg PO BID RF: 0 levothyroxine 125 MCG tablet 250 mcg PO QAMAC RF: 0 calcitriol 0.25 MCG capsule 0.5 mcg PO TID RF: 0 promethazine 25 MG tablet 25 mg PO Q6HP PRN (Reason: Nausea) Qty: 60 RF: 3 insulin glargine 1 UNIT/0.01 ML unit 10 unit SQ BID RF: 0 acetaminophen 325 MG tablet 650 mg PO Q6HP PRN (Reason: Pain/Fever > 101) RF: 0 Accu-Chek 1 EACH strip 1 each FS ACHS RF: 0 cyclobenzaprine 10 MG tablet 10 mg PO BIDP PRN (Reason: Spasms) RF: 0 magnesium oxide 250 MG tablet 500 mg PO BID RF: 0 promethazine 25 MG suppository 25 mg HI Q6HP PRN (Reason: nausea vomitting) RF: 0 ondansetron 4 MG tablet 4 mg SL Q4HP PRN (Reason: Nausea) RF: 0 metformin 500 MG tablet 500 mg PO BID RF: 0
[2020-09-14 21:24] LABS: ALT/SGPT 15 U/L (<40); AST/SGOT 14 U/L (<32); Albumin 3.7 gm/dL (3.2-5.2); Albumin/Globulin Ratio 1.4 (1.0-2.3); Alkaline Phosphatase 69 U/L (39-117); Bilirubin,Total 0.2 mg/dL (0.1-1.0); Blood Urea Nitrogen 38 mg/dL (6-20); Calcium 15.8 mg/dL (8.6-10.4); Carbon Dioxide 33 mmol/L (22-30); Chloride 97 mmol/L (96-108); Globulin 2.7 gm/dL (2.2-3.7); Glomerular Filtration Rate 30; Glucose 147 mg/dL (70-105)
[2020-09-14] MEDS ORDERED: 0.9 % SODIUM CHLORIDE 1,000 ML IV ONE (21:43)
[2020-09-14] MEDS ORDERED: FUROSEMIDE 20 MG/2 ML VIAL IV ONE (21:43)
--- NOTE | 2020-09-14 22:46 | Emergency Department Note ---
Weakness HPI General Chief complaint: Weakness Stated complaint: body aches Time Seen by Provider: 09/14/20 16:45 Source: patient Mode of arrival: wheelchair Limitations: no limitations History of Present Illness HPI Narrative: Narrative: I reviewed this case of Lupe FUENTESP and received this patient in checkout assuming full care at shift change. Noted the patient has symptoms consistent with Covid Related Data Home Medications Medication Instructions Recorded Confirmed duloxetine 30 mg PO BID 11/30/16 07/12/20 levothyroxine 250 mcg PO QAMAC 08/20/17 07/12/20 calcitriol See Rx Instructions .ROUTE .COMPLEX 02/11/19 07/12/20 insulin glargine 10 unit SQ BID 09/30/19 07/12/20 cyclobenzaprine 10 mg PO BIDP PRN 12/13/19 07/12/20 magnesium oxide 500 mg PO BID 12/13/19 07/12/20 ondansetron 4 mg SL Q4HP PRN 12/24/19 07/12/20 promethazine 25 mg MA Q6HP PRN 12/24/19 07/12/20 metformin 500 mg PO BID 07/12/20 07/12/20 Previous Rx's Medication Instructions Recorded prednisone 20 mg PO QAMCC #4 tab 05/18/16 promethazine 25 mg PO Q6HP PRN #60 tab 02/13/19 acetaminophen 650 mg PO Q6HP PRN tab 10/05/19 Accu-Chek 1 each FS ACHS strip 12/03/19 pyridostigmine bromide 5 mg/mL 10 mg IM Q6H #240 ml 01/04/20 injection solution filter needles 19 x 1 1/2" #100 each 04/06/20 gabapentin 300 mg capsule 300 mg PO QID #120 cap 04/25/20 syringe with needle 3 mL 25 gauge See Rx Instructions .ROUTE 08/31/20 x 1" .COMPLEX #100 unspecified cephalexin [Keflex] 500 mg PO Q12H #14 cap 09/14/20 Allergies Allergy/AdvReac Type Severity Reaction Status Date / Time Sulfa (Sulfonamide Allergy Severe Anaphylaxis Verified 09/14/20 16:42 Antibiotics) adhesive tape AdvReac Mild Blister Verified 09/14/20 16:42 metoclopramide [From Reglan] AdvReac Mild Anxiety Verified 09/14/20 16:42 steri strips AdvReac Mild Blister Uncoded 12/02/19 06:48 Review of Systems ROS ROS Narrative: Narrative: PFSH Narrative Patient History Narrative: Narrative: Medical/Surgical/Family History All Active Problems (Updated 09/14/20 @ 22:47 by Sp Alfred MD) Acute UTI (Acute) Hypercalcemia (Acute) COVID-19 (Acute) Acute kidney injury (Acute) Hyponatremia (Acute) Elevated LFTs (Acute) Small bowel obstruction (Acute) Dehydration (Acute) Primary chronic pseudo-obstruction of small intestine (Acute) UTI (urinary tract infection) (Acute) Hypocalcemia (Acute) Nausea & vomiting (Acute) Severe sepsis (Acute) 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 (Acute) Chronic, continuous use of opioids (Chronic) Myasthenia gravis (Chronic) Chronic intestinal pseudo-obstruction (Chronic) Recurrent intestinal obstruction (Chronic) Diabetes mellitus type 2, uncontrolled (Chronic) LA (obstructive sleep apnea) (Chronic) Hypertension (Chronic) Obesity, Class II, BMI 35-39.9 (Chronic) Low blood magnesium level (Chronic) Abdominal pain (Chronic) Chronic use of steroids (Chronic) Abnormal liver enzymes (Chronic) Hypothyroidism (Chronic) Sarcoidosis (Chronic) Polyglandular autoimmune syndrome (Chronic) Recurrent abdominal pain (Chronic) Medical History (Updated 09/14/20 @ 22:47 by Sp Alfred MD) Abdominal pain (Resolved) Abdominal pain (Chronic) Abdominal wound dehiscence (Resolved) Abnormal liver enzymes (Chronic) Achalasia and cardiospasm (Resolved) Acute respiratory insufficiency (Resolved) Adverse reaction to drug (Resolved) Anaphylaxis (Resolved) Bowel obstruction (Resolved) 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) Chronic use of steroids (Chronic) for myasthenia gravis; 10+ years Chronic, continuous use of opioids (Chronic) Constipation due to neurogenic bowel (Resolved) Constipation due to pain medication therapy (Resolved) Dehydration (Resolved) Dehydration (Resolved) Diabetes mellitus type 2, uncontrolled (Chronic) Encounter for care related to Port-a-Cath (Resolved) Fecal impaction (Resolved) Foot sprain (Resolved) Hypercalcemia (Resolved) Hypertension (Chronic) Hypocalcemia (Resolved) Hyponatremia (Resolved) Hypothyroidism (Chronic) Ileus (Resolved) Infiltrate of lung present on imaging of chest (Resolved) Intractable vomiting (Resolved) Lactic acid acidosis (Resolved) Low blood magnesium level (Chronic) Myasthenia gravis (Chronic) Nausea (Resolved) Nausea & vomiting (Resolved) Nausea & vomiting (Resolved) Nausea and vomiting (Resolved) Obesity, Class II, BMI 35-39.9 (Chronic) Obstruction of descending colon (Resolved) LA (obstructive sleep apnea) (Chronic) Pancreatitis (Resolved) Parastomal hernia with obstruction, without gangrene (Resolved) Partial intestinal obstruction, unspecified as to cause (Resolved) Partial small bowel obstruction (Resolved) Pneumonia (Resolved) 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) Pseudoobstruction of colon (Resolved) Pyelonephritis (Resolved) Recurrent abdominal pain (Chronic) Recurrent intestinal obstruction (Chronic) many recurrences; many surgical interventions Sarcoidosis (Chronic) Sepsis (Resolved) Sepsis associated hypotension (Resolved) Sepsis with acute hypoxic respiratory failure (Resolved) Severe sepsis (Resolved) Sigmoid volvulus (Resolved) Sinus tachycardia (Resolved) Sinus tachycardia (Resolved) Small bowel obstruction (Resolved) Small bowel obstruction (Resolved) Small bowel obstruction (Resolved) Small bowel obstruction (Resolved) Small bowel obstruction (Resolved) Small bowel obstruction (Resolved) Small bowel obstruction due to adhesions (Resolved) Small bowel obstruction due to postoperative adhesions (Resolved) Small bowel obstruction, partial (Resolved) Supraventricular tachycardia (Resolved) UTI (urinary tract infection) (Resolved) UTI (urinary tract infection) (Resolved) Volvulus of sigmoid colon (Resolved) Surgical History History of exploratory laparotomy (Acute) 10/17/2017-with adhesiolysis History of exploratory laparotomy (Acute) 12/01/2017-with adhesiolysis History of exploratory laparotomy (Acute) 07/18/2018 History of exploratory laparotomy (Acute) 08/10/2018-Exploratory laparotomy with small bowel adhesiolysis and incisional hernia repair with mesh graft S/P ileostomy (Resolved) Family History Father CAD (coronary artery disease) Mother CAD (coronary artery disease) Grandfather CVA (cerebral vascular accident) Grandmother CVA (cerebral vascular accident) Social History Smoking Status: Never smoker Exam Narrative Narrative: Narrative: General Limitations: no limitations Course Vital Signs Vital signs: Vital Signs Temperature 97.3 F 09/14/20 16:39 Pulse Rate 86 09/14/20 16:39 Respiratory Rate 16 09/14/20 16:39 Blood Pressure 146/86 09/14/20 16:39 Pulse Oximetry (%) 98 09/14/20 16:39 Temperature 97.3 F 09/14/20 16:39 Pulse Rate 86 09/14/20 22:09 Respiratory Rate 16 09/14/20 20:37 Blood Pressure 160/86 09/14/20 22:01 Pulse Oximetry (%) 94 09/14/20 22:09 MDM MDM Narrative Medical decision making narrative: Narrative: Patient's Covid testing is pending . We added a rapid test. It is noted she has mild symptoms at this time and is normoxic She had a UTI treated with Rocephin I discussed the case with the patient as well as with Dr. Vu, our h ospitalist-she has hypercalcemia likely secondary to exogenous calcium and acute kidney injury. Her creatinine has bumped up to 1.8 and her calcium is too high at 15.8. We gave her dose of furosemide as well as IV fluids. She cannot have bisphosphonate secondary to her creatinine. We discussed possibly doing calcitonin but there are issues with that besides availability. At this point we will bring her in the hospital-I will write transition orders to admit her to Dr. Vu, continue IV fluids and treat her pain in the interim. Hospitalist will see her in the morning Lab Data Result diagrams: 09/14/20 20:00 09/14/20 20:00 Labs: Lab Results 09/14/20 09/14/20 09/14/20 Range/Units 17:58 20:00 20:00 WBC 8.2 (4.5-11.0) K/mcL RBC 4.38 (4.00-5.20) M/mcL Hgb 12.8 (12.0-15.0) g/dL Hct 40.1 (36.0-48.0) % MCV 91.6 (80.0-100.0) fL MCH 29.2 (26.0-34.0) pg MCHC 31.9 (31.0-36.0) g/dL RDW 12.6 (11.5-14.5) % Plt Count 258 (140-440) K/mcL MPV 9.8 (7.4-10.4) fL Neut % (Auto) 76.0 (38.0-78.0) % Lymph % (Auto) 18.0 (15.0-49.0) % Hill % (Auto) 5.1 (1.0-12.0) % Eos % (Auto) 0.4 (0.0-7.0) % Baso % (Auto) 0.5 (0.0-2.0) % Lymph # (Auto) 1.48 L (1.50-4.80) K/mcL Hill # (Auto) 0.42 (0.10-0.90) K/mcL Eos # (Auto) 0.03 (0.00-0.70) K/mcL Baso # (Auto) 0.04 (0.00-0.20) K/mcL Absolute Neutrophils 6.23 (1.80-8.00) K/mcL Sodium 138 (133-145) mmol/L Potassium 4.4 (3.3-5.1) mmol/L Chloride 97 (96-108) mmol/L Carbon Dioxide 33 H (22-30) mmol/L Anion Gap 8.0 (8.0-16.0) BUN 38 H (6-20) mg/dL Creatinine 1.8 H (0.6-1.1) mg/dL GFR Calculation 30 Glucose 147 H (70-105) mg/dL Calcium 15.8 H* (8.6-10.4) mg/dL Total Bilirubin 0.2 (0.1-1.0) mg/dL AST 14 (<32) U/L ALT 15 (<40) U/L Alkaline Phosphatase 69 (39-117) U/L Total Protein 6.4 (5.9-8.4) gm/dL Albumin 3.7 (3.2-5.2) gm/dL Globulin 2.7 (2.2-3.7) gm/dL Albumin/Globulin Ratio 1.4 (1.0-2.3) Urine Color Yellow Urine Appearance Clear (Clear) Urine pH 5.0 (5.0-9.0) Ur Specific Burton 1.014 (1.000-1.035) Urine Protein Negative (Negative) mg/dL Urine Glucose (UA) Negative (Negative) mg/dL Urine Ketones Negative (Negative) mg/dL Urine Occult Blood Negative (Negative) mg/dL Urine Nitrate Pos A (Negative) Urine Bilirubin Negative (Negative) mg/dL Urine Urobilinogen Negative mg/dL Ur Leukocyte Esterase 250 A (Negative) /ug Urine RBC 2 H (0-1) /hpf Urine WBC 12 H (0-4) /hpf Ur Squamous Epith Cells 1 (0-4) /hpf Urine Bacteria Mod A (0) /hpf Hyaline Casts 7 H (0-2) /lph Urine Mucus Few A (None) /hpf Ur Culture Indicated? yes Discharge Plan Patient/Caregiver Discharge Instructions Pt seen by FURNITURE REPRODUCER/PA only: Yes Clinical Impression: Acute UTI, Hypercalcemia, COVID-19, Acute kidney injury Instructions: COVID-19, Urinary Tract Infection in Women (ED), Upper Respirat ory Infection (ED) Patient Disposition: Xfer As Inpt ([facility]) Condition: Fair Follow up with: Douglas Haque MD [Primary Care Provider] - Prescriptions: New cephalexin [Keflex] 500 mg capsule 500 mg PO Q12H Qty: 14 RF: 0 No Action pyridostigmine bromide 5 mg/mL solution 10 mg IM Q6H Qty: 240 RF: 5 (DME) filter needles 19 x 1 1/2" 19 x 1 1/2 " needle See Rx Instructions .ROUTE .MEDSUPPLY Qty: 100 RF: 1 gabapentin 300 mg capsule 300 mg PO QID Qty: 120 RF: 3 syringe with needle [BD Luer-Archie Syringe] 3 mL 25 gauge x 1" syringe See Rx Instructions .ROUTE .COMPLEX Qty: 100 RF: 4 prednisone 20 MG tablet 20 mg PO QAMCC Qty: 4 RF: 0 duloxetine 30 MG capsule 30 mg PO BID RF: 0 levothyroxine 125 MCG tablet 250 mcg PO QAMAC RF: 0 calcitriol 0.25 MCG capsule See Rx Instructions .ROUTE .COMPLEX RF: 0 promethazine 25 MG tablet 25 mg PO Q6HP PRN (Reason: Nausea) Qty: 60 RF: 3 insulin glargine 1 UNIT/0.01 ML unit 10 unit SQ BID RF: 0 acetaminophen 325 MG tablet 650 mg PO Q6HP PRN (Reason: Pain/Fever > 101) RF: 0 Accu-Chek 1 EACH strip 1 each FS ACHS RF: 0 cyclobenzaprine 10 MG tablet 10 mg PO BIDP PRN (Reason: Spasms) RF: 0 magnesium oxide 250 MG tablet 500 mg PO BID RF: 0 promethazine 25 MG suppository 25 mg MA Q6HP PRN (Reason: nausea vomitting) RF: 0 ondansetron 4 MG tablet 4 mg SL Q4HP PRN (Reason: Nausea) RF: 0 metformin 500 MG tablet 500 mg PO BID RF: 0
[2020-09-14] MEDS ORDERED: ONDANSETRON 4 MG/2 ML VIAL IV ONE (22:53)
[2020-09-14] MEDS: oxyCODONE/APAP 5/325MG TABLET PO PRN (23:11)
[2020-09-15] MEDS: 0.9 % SODIUM CHLORIDE 1,000 ML IV SCH ×5 (00:08→17:22)
[2020-09-15] MEDS: oxyCODONE/APAP 5/325MG TABLET PO PRN ×5 (02:55→23:11)
--- NOTE | 2020-09-15 07:24 | Internal Med History&Physical ---
HPI History of Present Illness Patient information: Note initiated : 09/15/20 at 7:19 am Service Date, if different from initiated Date: [] Patient: Dayanna Guo a 59 y/o F admitted on 09/14/20 for body aches. Chief Complaint: [] History of present illness: Ms. Guo is a 59 year old F Presents to the ED with generalized feeling poorly for the past 4 days. She has body aches and chills. Her joint pain hurts worse than usual. She is had a dry cough. No nausea vomiting diarrhea or abdominal pain. Denies any sick contacts or Covid exposure. She is on calcium supplementation because he is she is usually hypocalcemic. Was in the hospital to longer with hypocalcemia and had her calcium adjusted. Is also found to have a UTI. She has had polyuria. Her Covid screen was negative In the ED IV fluid hydration Review of Systems: Positives as above. Denies headache/fever/nausea/vomiting/chest or abdominal pain/diarrhea. Remaining 10 point review of system reviewed negative PFSH PFSH All Active Problems (Updated 09/14/20 @ 22:47 by Sp Alfred MD) Acute UTI (Acute) Hypercalcemia (Acute) COVID-19 (Acute) Acute kidney injury (Acute) Hyponatremia (Acute) Elevated LFTs (Acute) Small bowel obstruction (Acute) Dehydration (Acute) Primary chronic pseudo-obstruction of small intestine (Acute) UTI (urinary tract infection) (Acute) Hypocalcemia (Acute) Nausea & vomiting (Acute) Severe sepsis (Acute) 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 (Acute) Chronic, continuous use of opioids (Chronic) Myasthenia gravis (Chronic) Chronic intestinal pseudo-obstruction (Chronic) Recurrent intestinal obstruction (Chronic) Diabetes mellitus type 2, uncontrolled (Chronic) LA (obstructive sleep apnea) (Chronic) Hypertension (Chronic) Obesity, Class II, BMI 35-39.9 (Chronic) Low blood magnesium level (Chronic) Abdominal pain (Chronic) Chronic use of steroids (Chronic) Abnormal liver enzymes (Chronic) Hypothyroidism (Chronic) Sarcoidosis (Chronic) Polyglandular autoimmune syndrome (Chronic) Recurrent abdominal pain (Chronic) Medical History (Updated 09/14/20 @ 22:47 by Sp Alfred MD) Abdominal pain (Resolved) Abdominal pain (Chronic) Abdominal wound dehiscence (Resolved) Abnormal liver enzymes (Chronic) Achalasia and cardiospasm (Resolved) Acute respiratory insufficiency (Resolved) Adverse reaction to drug (Resolved) Anaphylaxis (Resolved) Bowel obstruction (Resolved) 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) Chronic use of steroids (Chronic) for myasthenia gravis; 10+ years Chronic, continuous use of opioids (Chronic) Constipation due to neurogenic bowel (Resolved) Constipation due to pain medication therapy (Resolved) Dehydration (Resolved) Dehydration (Resolved) Diabetes mellitus type 2, uncontrolled (Chronic) Encounter for care related to Port-a-Cath (Resolved) Fecal impaction (Resolved) Foot sprain (Resolved) Hypercalcemia (Resolved) Hypertension (Chronic) Hypocalcemia (Resolved) Hyponatremia (Resolved) Hypothyroidism (Chronic) Ileus (Resolved) Infiltrate of lung present on imaging of chest (Resolved) Intractable vomiting (Resolved) Lactic acid acidosis (Resolved) Low blood magnesium level (Chronic) Myasthenia gravis (Chronic) Nausea (Resolved) Nausea & vomiting (Resolved) Nausea & vomiting (Resolved) Nausea and vomiting (Resolved) Obesity, Class II, BMI 35-39.9 (Chronic) Obstruction of descending colon (Resolved) LA (obstructive sleep apnea) (Chronic) Pancreatitis (Resolved) Parastomal hernia with obstruction, without gangrene (Resolved) Partial intestinal obstruction, unspecified as to cause (Resolved) Partial small bowel obstruction (Resolved) Pneumonia (Resolved) 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) Pseudoobstruction of colon (Resolved) Pyelonephritis (Resolved) Recurrent abdominal pain (Chronic) Recurrent intestinal obstruction (Chronic) many recurrences; many surgical interventions Sarcoidosis (Chronic) Sepsis (Resolved) Sepsis associated hypotension (Resolved) Sepsis with acute hypoxic respiratory failure (Resolved) Severe sepsis (Resolved) Sigmoid volvulus (Resolved) Sinus tachycardia (Resolved) Sinus tachycardia (Resolved) Small bowel obstruction (Resolved) Small bowel obstruction (Resolved) Small bowel obstruction (Resolved) Small bowel obstruction (Resolved) Small bowel obstruction (Resolved) Small bowel obstruction (Resolved) Small bowel obstruction due to adhesions (Resolved) Small bowel obstruction due to postoperative adhesions (Resolved) Small bowel obstruction, partial (Resolved) Supraventricular tachycardia (Resolved) UTI (urinary tract infection) (Resolved) UTI (urinary tract infection) (Resolved) Volvulus of sigmoid colon (Resolved) Surgical History History of exploratory laparotomy (Acute) 10/17/2017-with adhesiolysis History of exploratory laparotomy (Acute) 12/01/2017-with adhesiolysis History of exploratory laparotomy (Acute) 07/18/2018 History of exploratory laparotomy (Acute) 08/10/2018-Exploratory laparotomy with small bowel adhesiolysis and incisional hernia repair with mesh graft S/P ileostomy (Resolved) Family History Father CAD (coronary artery disease) Mother CAD (coronary artery disease) Grandfather CVA (cerebral vascular accident) Grandmother CVA (cerebral vascular accident) Social History (Updated 10/19/19 @ 12:52 by Bertha Currie MD) smoking status: Former smoker MEDS/ALLERGIES Home Medications and Allergies Home Medications Medication Instructions Recorded Confirmed Type duloxetine 30 mg PO BID 11/30/16 09/15/20 History levothyroxine 250 mcg PO QAMAC 08/20/17 09/15/20 History calcitriol See Rx Instructions .ROUTE .COMPLEX 02/11/19 09/15/20 History promethazine 25 mg PO Q6HP PRN #60 tab 02/13/19 09/14/20 Rx insulin glargine 10 unit SQ BID 09/30/19 09/15/20 History Accu-Chek 1 each FS ACHS strip 12/03/19 09/14/20 Rx cyclobenzaprine 10 mg PO BIDP PRN 12/13/19 09/15/20 History magnesium oxide 500 mg PO BID 12/13/19 09/15/20 History ondansetron 4 mg SL Q4HP PRN 12/24/19 09/14/20 History promethazine 25 mg VT Q6HP PRN 12/24/19 09/14/20 History pyridostigmine bromide 5 mg/mL 10 mg IM Q6H #240 ml 01/04/20 09/14/20 Rx injection solution filter needles 19 x 1 1/2" #100 each 04/06/20 07/12/20 Rx metformin 500 mg PO BID 07/12/20 09/15/20 History syringe with needle 3 mL 25 gauge See Rx Instructions .ROUTE 08/31/20 09/14/20 Rx x 1" .COMPLEX #100 unspecified acetaminophen 500 mg PO Q6HP PRN 09/14/20 09/14/20 History gabapentin 300 mg PO BID 09/14/20 09/15/20 History prednisone 40 mg PO QAC 09/14/20 09/14/20 History Allergies Allergy/AdvReac Type Severity Reaction Status Date / Time Sulfa (Sulfonamide Allergy Severe Anaphylaxis Verified 09/14/20 16:42 Antibiotics) adhesive tape AdvReac Mild Blister Verified 09/14/20 16:42 metoclopramide [From Reglan] AdvReac Mild Anxiety Verified 09/14/20 16:42 steri strips AdvReac Mild Blister Uncoded 12/02/19 06:48 EXAM Constitutional Vitals: Temp Pulse Resp BP Pulse Ox 96.5 F L 81 18 177/61 96 09/15/20 03:12 09/15/20 04:01 09/15/20 04:01 09/15/20 04:01 09/15/20 04:01 Exam: General: Alert, Awake, No acute Distress, obese Eyes/N/T: EOMI, PERRL, Head/Neck: neck supple, normocephalic atraumatic CV: RRR, No murmurs, normal s1/s2 Pulm: Clear b/l, no wheezing/rhonchi/rales Abd: soft, nontender, +BS x4, ostomy Ext: no clubbing/cyanosis, b/l LE mild edema Neuro: Alert, no focal deficits, moves all extremities, CN 2-12 grossly intact, symmetrical strength b/l upper/lower, sensations intact b/l upper/lower Skin: warm/dry DATA Data Completed and Pending Labs: Labs from last 24 hours 09/14/20 09/14/20 09/14/20 22:37 20:00 20:00 WBC 8.2 RBC 4.38 Hgb 12.8 Hct 40.1 MCV 91.6 MCH 29.2 MCHC 31.9 RDW 12.6 Plt Count 258 MPV 9.8 Neut % (Auto) 76.0 Lymph % (Auto) 18.0 Bullock % (Auto) 5.1 Eos % (Auto) 0.4 Baso % (Auto) 0.5 Lymph # (Auto) 1.48 L Bullock # (Auto) 0.42 Eos # (Auto) 0.03 Baso # (Auto) 0.04 Absolute Neutrophils 6.23 Sodium 138 Potassium 4.4 Chloride 97 Carbon Dioxide 33 H Anion Gap 8.0 BUN 38 H Creatinine 1.8 H GFR Calculation 30 Glucose 147 H Calcium 15.8 H* Total Bilirubin 0.2 AST 14 ALT 15 Alkaline Phosphatase 69 Total Protein 6.4 Albumin 3.7 Globulin 2.7 Albumin/Globulin Ratio 1.4 Urine Color Urine Appearance Urine pH Ur Specific Dana Urine Protein Urine Glucose (UA) Urine Ketones Urine Occult Blood Urine Nitrate Urine Bilirubin Urine Urobilinogen Ur Leukocyte Esterase Urine RBC Urine WBC Ur Squamous Epith Cells Urine Bacteria Hyaline Casts Urine Mucus Ur Culture Indicated? SARS-CoV-2 (PCR) Negative 09/14/20 09/14/20 17:58 17:03 WBC RBC Hgb Hct MCV MCH MCHC RDW Plt Count MPV Neut % (Auto) Lymph % (Auto) Bullock % (Auto) Eos % (Auto) Baso % (Auto) Lymph # (Auto) Bullock # (Auto) Eos # (Auto) Baso # (Auto) Absolute Neutrophils Sodium Potassium Chloride Carbon Dioxide Anion Gap BUN Creatinine GFR Calculation Glucose Calcium Total Bilirubin AST ALT Alkaline Phosphatase Total Protein Albumin Globulin Albumin/Globulin Ratio Urine Color Yellow Urine Appearance Clear Urine pH 5.0 Ur Specific Dana 1.014 Urine Protein Negative Urine Glucose (UA) Negative Urine Ketones Negative Urine Occult Blood Negative Urine Nitrate Pos A Urine Bilirubin Negative Urine Urobilinogen Negative Ur Leukocyte Esterase 250 A Urine RBC 2 H Urine WBC 12 H Ur Squamous Epith Cells 1 Urine Bacteria Mod A Hyaline Casts 7 H Urine Mucus Few A Ur Culture Indicated? yes SARS-CoV-2 (PCR) Pending A/P Narrative A/P Narrative: A: *Hypercalcemia, exogenous: *THANIA: 2/2 above *UTI: *DM II: *Chronic abdominal pain, neuropathy: *h/o Recurrent SBO: *Morbid obesity: *Myasthenia gravis: On prednisone/pyridostigmine *HTN: On lisinopril *Hypothyroidism: * P: -IVF's, -calcitonin -hold home calcium supp for now, adjust dose upon d/c -obtain ekg -rocephin, pending UC -Basal and SSI, hold metformin for now -cont home MG meds - -pt/ot -ppx: lovenox full code Time Spent With Patient Time: Total time spent is greater than 50% in coordination of care (as documented) at patient's floor/unit and/or counseling patient: QUALITY VTE Deep Vein Thrombosis/Pulmonary Embolism Present on Admission: No
[2020-09-15] MEDS ORDERED: DEXTROSE 31 GM ORAL.SUSP PO PRN (08:40)
[2020-09-15] MEDS ORDERED: ONDANSETRON 4 MG/2 ML VIAL IV PRN (08:40)
[2020-09-15] MEDS ORDERED: DEXTROSE 50% 50 ML VIAL IV PRN (08:40)
[2020-09-15] MEDS ORDERED: POTASSIUM CHLORIDE 40 MEQ in DEXTROSE 5% IN WATER 500 ML IV PRN (08:40)
[2020-09-15] MEDS ORDERED: IPRATROPIUM/ALBUTEROL 3 ML AMPUL.NEB NEB PRN (08:40)
[2020-09-15] MEDS ORDERED: POTASSIUM CHLORIDE 20 MEQ TABLET PO PRN ×2 (08:40)
[2020-09-15] MEDS ORDERED: POLYETHYLENE GLYCOL 3350 17 GM PACKET PO PRN (08:40)
[2020-09-15] MEDS ORDERED: ACETAMINOPHEN 325 MG TABLET PO PRN (08:40)
[2020-09-15] MEDS ORDERED: MAGNESIUM SULFATE 2 GM/50 ML BAG IV PRN (08:40)
[2020-09-15] MEDS ORDERED: SENNOSIDES 1 TABLET PO PRN (08:40)
[2020-09-15] MEDS ORDERED: cefTRIAXone 1 GM in DEXTROSE 5% IN WATER 50 ML IV SCH (08:45)
[2020-09-15] MEDS ORDERED: CYCLOBENZAPRINE 10 MG TABLET PO PRN (08:47)
[2020-09-15] MEDS ORDERED: PROMETHAZINE 25 MG SUPP.RECT PR PRN (08:49)
[2020-09-15] MEDS ORDERED: ONDANSETRON 4 MG ODT TABLET SL PRN (08:49)
[2020-09-15 09:19] LABS: ALT/SGPT 13 U/L (<40); AST/SGOT 14 U/L (<32); Albumin 2.9 gm/dL (3.2-5.2); Albumin/Globulin Ratio 1.1 (1.0-2.3); Alkaline Phosphatase 63 U/L (39-117); Bilirubin,Direct < 0.2 mg/dL (<0.3); Bilirubin,Total 0.2 mg/dL (0.1-1.0); Blood Urea Nitrogen 37 mg/dL (6-20); Calcium 13.7 mg/dL (8.6-10.4); Carbon Dioxide 32 mmol/L (22-30); Chloride 99 mmol/L (96-108); Globulin 2.6 gm/dL (2.2-3.7); Glomerular Filtration Rate 30; Glucose 129 mg/dL (70-105); Lactate Dehydrogenase 118 U/L (135-225); Triglycerides 747 mg/dL (<150); Uric Acid 8.7 mg/dL (2.5-8.0)
[2020-09-15] MEDS: GABAPENTIN 300 MG CAPSULE PO SCH ×2 (09:35→20:46)
[2020-09-15] MEDS: DULoxetine 30 MG CAPSULE PO SCH ×2 (09:35→20:46)
[2020-09-15] MEDS: DOCUSATE SODIUM 100 MG CAPSULE PO SCH ×3 (09:35→20:46)
[2020-09-15] MEDS: INSULIN GLARGINE, HUMAN 1 UNIT/0.01 ML SQ SCH ×2 (09:36→20:47)
[2020-09-15] MEDS: PYRIDOSTIGMINE BROMIDE 10 MG/2 ML ML IM SCH ×3 (09:36→20:47)
[2020-09-15] MEDS: ENOXAPARIN 30 MG/0.3 ML SYRINGE SQ SCH (09:37)
[2020-09-15] MEDS: LEVOTHYROXINE 125 MCG TABLET PO SCH (09:38)
[2020-09-15] MEDS: predniSONE 20 MG TABLET PO SCH (10:04)
[2020-09-15] MEDS: cefTRIAXone 1 GM VIAL IV SCH (10:05)
[2020-09-15] MEDS ORDERED: CALCITONIN 400 UNIT/2 ML VIAL IM ONE (11:00)
[2020-09-15] MEDS: INSULIN LISPRO 1 UNIT/0.01 ML UNIT SQ SCH ×3 (11:31→20:48)
[2020-09-15] MEDS: 0.9 % SODIUM CHLORIDE 10 ML SYRINGE IV SCH ×2 (13:53→20:48)
[2020-09-15] MEDS ORDERED: hydrALAZINE 20 MG/ML VIAL IV PRN (18:45)
[2020-09-16] MEDS: 0.9 % SODIUM CHLORIDE 1,000 ML IV SCH ×2 (01:05→16:49)
[2020-09-16] MEDS: PYRIDOSTIGMINE BROMIDE 10 MG/2 ML ML IM SCH ×4 (04:00→20:36)
[2020-09-16] MEDS: 0.9 % SODIUM CHLORIDE 10 ML SYRINGE IV SCH ×3 (04:45→20:36)
[2020-09-16 06:35] LABS: Basophils # (Auto) 0.03 K/mcL (0.00-0.20); Basophils % (Auto) 0.4 % (0.0-2.0); Eosinophils # (Auto) 0.01 K/mcL (0.00-0.70); Eosinophils % (Auto) 0.1 % (0.0-7.0); Hematocrit 35.3 % (36.0-48.0); Hemoglobin 11.1 g/dL (12.0-15.0); Lymphocytes # (Auto) 1.28 K/mcL (1.50-4.80); Lymphocytes % (Auto) 15.4 % (15.0-49.0); Mean Cell Volume 93.4 fL (80.0-100.0); Mean Corpuscular HGB Conc 31.4 g/dL (31.0-36.0); Mean Platelet Volume 9.6 fL (7.4-10.4); Monocytes # (Auto) 0.57 K/mcL (0.10-0.90); Monocytes % (Auto) 6.9 % (1.0-12.0); Neutrophils % (Auto) 77.2 % (38.0-78.0); Platelet Count 265 K/mcL (140-440); RBC 3.78 M/mcL (4.00-5.20); Red Cell Distribution Width 12.7 % (11.5-14.5); WBC 8.3 K/mcL (4.5-11.0)
--- NOTE | 2020-09-16 06:41 | XRay Report ---
INDICATION: Fall. Bilateral ankle pain TECHNIQUE: AP and lateral bilateral ankle COMPARISON: None. FINDINGS: Examination was initially interpreted by [facility] Left ankle: No acute left ankle fracture. Distal tibia and fibula are negative. Talus and calcaneus are normal. There is degenerative joint disease in the tibiotalar joint. There is degenerative disease in the subtalar joint. There is a large bone density posterior to the tibiotalar joint and superior to the calcaneal tuberosity. This may be related to old trauma. This could be within the tibiotalar joint space but there is no evidence for tibiotalar joint effusion. There is no acute abnormality. Right ankle: Distal tibia and fibula are negative. No fracture. Talus and calcaneus are negative. There is degenerative joint disease in the tibiotalar joint. There is bone density posterior to the tibiotalar joint and superior to the calcaneal tuberosity. This is similar to the left ankle although less prominent. No acute posttraumatic abnormality. IMPRESSION: 1. No acute ankle fracture 2. Degenerative joint disease Interpreted and Authenticated by: All Cormier 09/16/20
--- NOTE | 2020-09-16 06:42 | XRay Report ---
INDICATION: Fall. Bilateral knee pain TECHNIQUE: AP and crosstable lateral bilateral knees COMPARISON: None. FINDINGS: Examination was initially interpreted by [facility] Right knee: Severe degenerative joint disease with marked narrowing of the patellofemoral joint and medial femoral tibial joint. No right knee fracture. No plain film evidence for joint effusion. No acute abnormality. Incidental note is made of atherosclerotic calcification of the popliteal artery. Left knee: Severe degenerative joint disease in the patellofemoral joint. Medial and lateral femoral tibial joint spaces are within normal limits. There is no left knee fracture. No acute posttraumatic abnormality. No evidence for significant joint effusion IMPRESSION: 1. Degenerative joint disease 2. No fracture. Interpreted and Authenticated by: All Cormier 09/16/20
[2020-09-16] MEDS: predniSONE 20 MG TABLET PO SCH (07:40)
[2020-09-16] MEDS: LEVOTHYROXINE 125 MCG TABLET PO SCH (07:40)
[2020-09-16] MEDS: INSULIN LISPRO 1 UNIT/0.01 ML UNIT SQ SCH ×4 (07:43→21:14)
[2020-09-16 08:05] LABS: ALT/SGPT 12 U/L (<40); AST/SGOT 10 U/L (<32); Albumin 3.3 gm/dL (3.2-5.2); Albumin/Globulin Ratio 1.4 (1.0-2.3); Alkaline Phosphatase 59 U/L (39-117); Bilirubin,Direct < 0.2 mg/dL (<0.3); Bilirubin,Total < 0.2 mg/dL (0.1-1.0); Blood Urea Nitrogen 34 mg/dL (6-20); Calcium 11.1 mg/dL (8.6-10.4); Carbon Dioxide 32 mmol/L (22-30); Chloride 102 mmol/L (96-108); Globulin 2.4 gm/dL (2.2-3.7); Glomerular Filtration Rate 32; Glucose 148 mg/dL (70-105); Lactate Dehydrogenase 135 U/L (135-225); Phosphorous 3.4 mg/dL (2.5-4.5); Triglycerides 583 mg/dL (<150); Uric Acid 8.1 mg/dL (2.5-8.0)
[2020-09-16] MEDS: ENOXAPARIN 30 MG/0.3 ML SYRINGE SQ SCH (08:32)
[2020-09-16] MEDS: INSULIN GLARGINE, HUMAN 1 UNIT/0.01 ML SQ SCH ×2 (08:33→21:14)
[2020-09-16] MEDS: cefTRIAXone 1 GM VIAL IV SCH (08:33)
[2020-09-16] MEDS: DULoxetine 30 MG CAPSULE PO SCH ×2 (08:34→20:29)
[2020-09-16] MEDS: oxyCODONE/APAP 5/325MG TABLET PO PRN ×3 (08:34→20:29)
[2020-09-16] MEDS: GABAPENTIN 300 MG CAPSULE PO SCH ×2 (08:34→20:29)
[2020-09-16] MEDS: DOCUSATE SODIUM 100 MG CAPSULE PO SCH ×2 (08:49→20:29)
[2020-09-16] MEDS ORDERED: FLU VACC QS2020-21(6MOS UP)/PF 60 MCG/0.5 ML SYRINGE IM ONE ×2 (10:00→11:30)
[2020-09-16] MEDS ORDERED: 0.9 % SODIUM CHLORIDE 1,000 ML IV SCH (15:30)
--- NOTE | 2020-09-16 15:33 | Internal Med Progress Note ---
SUBJECTIVE Subjective Patient information: Note initiated : 09/16/20 at 3:28 pm Service Date, if different from initiated Date: [] Patient: Dayanna Guo a 59 y/o F admitted on 09/14/20 for body aches. Chief Complaint: History of present illness: Ms. Guo is a 59 year old F Presents to the ED with generalized feeling poorly for the past 4 days. She has body aches and chills. Her joint pain hurts worse than usual. She is had a dry cough. No nausea vomiting diarrhea or abdominal pain. Denies any sick contacts or Covid exposure. She is on calcium supplementation because he is she is usually hypocalcemic. Was in the hospital to longer with hypocalcemia and had her calcium adjusted. Is also found to have a UTI. She has had polyuria. Her Covid screen was negative In the ED IV fluid hydration 09/16-improved calcium and last 24 hours from 15.8-11.1. Creatinine down to 1.7. Improving volume depletion. Continue crystalloids. Hold calcium supplement until calcium level less than 10. Spontaneous muscle contraction/weakness leading to fall last night. Continue supervised ambulation/therapies. Continue antibiotic coverage for UTI. Pansensitive E. coli on cultures. On Rocephin. Constitutional Vitals: Vital Signs Temp Pulse Resp BP Pulse Ox 97.7 F 73 13 106/93 98 09/16/20 12:02 09/16/20 12:02 09/16/20 12:02 09/16/20 12:02 09/16/20 12:02 Period Temp Pulse Resp BP Sys/Archuleta Pulse Ox Last 24 Hr 97.0 F-98.7 F 73-102 13-22 106-183/77-99 90-99 Intake and Output 09/16/20 09/16/20 09/16/20 05:59 13:59 21:59 Intake Total 1465 967 Output Total 1175 650 250 Balance 290 317 -250 Alert oriented Improved mental status change No anxiety Nonlabored breathing No lymphedema Intake & Output: Intake & Output 09/16/20 09/16/20 09/16/20 05:59 13:59 21:59 Intake Total 1465 967 Output Total 1175 650 250 Balance 290 317 -250 Intake: IV 965 967 Sodium Chloride 0.9% 1,000 ml @ 965 967 125 mls/hr IV .Q8H [facility] Rx#: [id number] Oral 500 Output: Void Amount 1175 650 Stool 250 Other: Meal Breakfast Percent of Meal Consumed 50% Feeding Ability Independent Urine Appearance Clear Clear Urine Color Bright Yellow Pale Urine Odor Normal Stool Color Green Green OBJ DATA Labs CBC & Chem 7: 09/16/20 05:09 09/16/20 05:09 Labs: Abnormal Lab Results 09/16/20 09/16/20 09/15/20 05:09 05:09 07:45 RBC 3.78 L Hgb 11.1 L Hct 35.3 L Lymph # (Auto) 1.28 L Carbon Dioxide 32 H 32 H Anion Gap 7.0 L 7.0 L BUN 34 H 37 H Creatinine 1.7 H 1.8 H Glucose 148 H 129 H Uric Acid 8.1 H 8.7 H Calcium 11.1 H 13.7 H* Phosphorus 5.0 H Magnesium 2.9 H Lactate Dehydrogenase 118 L Total Protein 5.7 L 5.5 L Albumin 2.9 L Triglycerides 583 H 747 H Urine Nitrate Ur Leukocyte Esterase Urine RBC Urine WBC Urine Bacteria Hyaline Casts Urine Mucus 09/14/20 09/14/20 09/14/20 20:00 20:00 17:58 RBC Hgb Hct Lymph # (Auto) 1.48 L Carbon Dioxide 33 H Anion Gap BUN 38 H Creatinine 1.8 H Glucose 147 H Uric Acid Calcium 15.8 H* Phosphorus Magnesium Lactate Dehydrogenase Total Protein Albumin Triglycerides Urine Nitrate Pos A Ur Leukocyte Esterase 250 A Urine RBC 2 H Urine WBC 12 H Urine Bacteria Mod A Hyaline Casts 7 H Urine Mucus Few A Meds: Medications Acetaminophen (Tylenol) 650 mg PO Q6HP PRN PRN Reason: PAIN/FEVER > 101 Albuterol/Ipratropium (Duoneb) 3 ml NEB Q4HP PRN PRN Reason: Shortness Of Breath Ceftriaxone Sodium (Rocephin) 1 gm IV Q24H [facility] Last Admin: 09/16/20 08:33 Dose: 1 gm Documented by: Cyclobenzaprine HCl (Flexeril) 10 mg PO BIDP PRN PRN Reason: Spasms Last Admin: 09/15/20 16:29 Dose: 10 mg Documented by: Dextrose (Dextrose 50%) 0 ml IV UD PRN PRN Reason: Hypoglycemia Diagnostic Test (Pha) (Accu-Chek) 1 each FS [facility] Last Admin: 09/16/20 11:34 Dose: 1 each Documented by: Docusate Sodium (Colace) 100 mg PO BID [facility] Last Admin: 09/16/20 08:49 Dose: Not Given Documented by: Duloxetine HCl (Cymbalta) 30 mg PO BID [facility] Last Admin: 09/16/20 08:34 Dose: 30 mg Documented by: Enoxaparin Sodium (Lovenox) 30 mg SQ DAILY [facility] Last Admin: 09/16/20 08:32 Dose: 30 mg Documented by: Gabapentin (Neurontin) 300 mg PO BID [facility] Last Admin: 09/16/20 08:34 Dose: 300 mg Documented by: Glucose (Insta-Glucose) 15 gm PO PRN PRN PRN Reason: Hypoglycemia Heparin Sodium (Porcine) (Heparin 10 Units/Ml Flush) 5 ml IV Q12 [facility] Last Admin: 09/16/20 14:59 Dose: 5 ml Documented by: Hydralazine HCl (Apresoline) 10 - 20 mg IV Q4HP PRN PRN Reason: Agitation Last Admin: 09/15/20 20:46 Dose: 20 mg Documented by: Potassium Chloride 40 meq/ (Dextrose) 520 mls @ 130 mls/hr IV UD PRN PRN Reason: Potassium < 3 Magnesium Sulfate (Magnesium Sulfate) 2 gm in 50 mls @ 50 mls/hr IV UD PRN PRN Reason: Magnesium </= 1.6 Sodium Chloride (Sodium Chloride 0.9%) 1,000 mls @ 0 mls/hr IV BOLUS [facility] Sodium Chloride (Sodium Chloride 0.9%) 1,000 mls @ 50 mls/hr IV .Q20H [facility] Stop: 09/19/20 03:29 Insulin Glargine (Lantus) 10 unit SQ BID [facility] Last Admin: 09/16/20 08:33 Dose: 10 unit Documented by: Insulin Human Lispro (Humalog) 0 unit SQ [facility]; Protocol Last Admin: 09/16/20 11:34 Dose: 2 unit Documented by: Levothyroxine Sodium (Synthroid) 250 mcg PO QAMAC [facility] Last Admin: 09/16/20 07:40 Dose: 250 mcg Documented by: Ondansetron HCl (Zofran) 4 mg IV Q4HP PRN PRN Reason: Nausea And Vomiting Last Admin: 09/15/20 13:50 Dose: 4 mg Documented by: Ondansetron HCl (Zofran Odt) 4 mg SL Q4HP PRN PRN Reason: Nausea And Vomiting Oxycodone/Acetaminophen (Percocet 5-325 Mg) 1 tab PO Q4HP PRN; Protocol PRN Reason: PAIN LEVEL 3-6 Last Admin: 09/16/20 08:34 Dose: 1 tab Documented by: Polyethylene Glycol (Miralax) 17 gm PO DAILYP PRN PRN Reason: Constipation Potassium Chloride (Kdur) 40 meq PO UD PRN PRN Reason: Potssium is 3-3.5 Potassium Chloride (Kdur) 40 meq PO UD PRN PRN Reason: Potassium < 3 Prednisone (Prednisone) 40 mg PO [facility] Last Admin: 09/16/20 07:40 Dose: 40 mg Documented by: Promethazine HCl (Phenergan) 25 mg AR Q6HP PRN PRN Reason: Nausea And Vomiting Pyridostigmine [place]ir (Regonol) 10 mg IM 0300,0900,1500,2100 [facility] Last Admin: 09/16/20 08:33 Dose: 10 mg Documented by: Senna (Senokot) 2 tab PO DAILYP PRN PRN Reason: Constipation Sodium Chloride (Saline Flush) 10 ml IV Q8 [facility] Last Admin: 09/16/20 14:59 Dose: 10 ml Documented by: A/P Narrative A/P Narrative: A: * *Hypercalcemia, exogenous: Secondary calcium supplement use. Downtrending from 15.8-11 * THANIA: Secondary to severe volume depletion from hypercalcemic related diuresis * Complicated E. coli UTI, sensitive to Rocephin. * DM II: Continue basal prandial insulin * Anxiety disorder continue duloxetine * Neuropathy continue gabapentin * Hypothyroidism continue thyroxine * Chronic abdominal pain, neuropathy: Stable on home meds * h/o Recurrent SBO: Follows outpatient with Dr. Currie surgery * Morbid obesity: * History of myasthenia gravis: On prednisone/pyridostigmine * HTN: On lisinopril Plan * Continue crystalloid * Continue antibiotics * Pre-existing medical condition management home meds * Monitor renal function * Prophylaxis Lovenox Time Spent With Patient Time: Total time spent is greater than 50% in coordination of care (as documented) at patient's floor/unit and/or counseling patient: QUALITY VTE Deep Vein Thrombosis/Pulmonary Embolism Present on Admission: No
[2020-09-17] MEDS: oxyCODONE/APAP 5/325MG TABLET PO PRN ×4 (03:19→20:29)
[2020-09-17] MEDS: PYRIDOSTIGMINE BROMIDE 10 MG/2 ML ML IM SCH ×4 (03:19→21:55)
[2020-09-17] MEDS: 0.9 % SODIUM CHLORIDE 10 ML SYRINGE IV SCH ×3 (04:12→21:57)
[2020-09-17] MEDS: INSULIN LISPRO 1 UNIT/0.01 ML UNIT SQ SCH ×4 (06:58→21:54)
[2020-09-17] MEDS: LEVOTHYROXINE 125 MCG TABLET PO SCH (06:58)
[2020-09-17] MEDS: INSULIN GLARGINE, HUMAN 1 UNIT/0.01 ML SQ SCH ×2 (08:12→21:55)
[2020-09-17] MEDS: ENOXAPARIN 30 MG/0.3 ML SYRINGE SQ SCH (08:12)
[2020-09-17] MEDS: DOCUSATE SODIUM 100 MG CAPSULE PO SCH ×2 (08:13→20:29)
[2020-09-17] MEDS: cefTRIAXone 1 GM VIAL IV SCH (08:13)
[2020-09-17] MEDS: GABAPENTIN 300 MG CAPSULE PO SCH ×2 (08:14→20:29)
[2020-09-17] MEDS: DULoxetine 30 MG CAPSULE PO SCH ×2 (08:14→20:29)
[2020-09-17] MEDS: predniSONE 20 MG TABLET PO SCH (08:14)
[2020-09-17 09:53] LABS: ALT/SGPT 13 U/L (<40); AST/SGOT 15 U/L (<32); Albumin 3.3 gm/dL (3.2-5.2); Albumin/Globulin Ratio 1.4 (1.0-2.3); Alkaline Phosphatase 55 U/L (39-117); Bilirubin,Direct < 0.2 mg/dL (<0.3); Bilirubin,Total < 0.2 mg/dL (0.1-1.0); Blood Urea Nitrogen 26 mg/dL (6-20); Calcium 9.7 mg/dL (8.6-10.4); Carbon Dioxide 32 mmol/L (22-30); Chloride 101 mmol/L (96-108); Globulin 2.3 gm/dL (2.2-3.7); Glomerular Filtration Rate 50; Glucose 88 mg/dL (70-105); Lactate Dehydrogenase 157 U/L (135-225); Phosphorous 2.9 mg/dL (2.5-4.5); Triglycerides 457 mg/dL (<150); Uric Acid 6.4 mg/dL (2.5-8.0)
[2020-09-17] MEDS: 0.9 % SODIUM CHLORIDE 1,000 ML IV SCH (12:51)
[2020-09-17] MEDS ORDERED: ACETAMINOPHEN 325 MG TABLET PO PRN (15:12)
[2020-09-17] MEDS ORDERED: DEXTROSE 31 GM ORAL.SUSP PO PRN (15:12)
[2020-09-17] MEDS ORDERED: ONDANSETRON 4 MG/2 ML VIAL IV PRN (15:12)
[2020-09-17] MEDS ORDERED: IPRATROPIUM/ALBUTEROL 3 ML AMPUL.NEB NEB PRN (15:12)
[2020-09-17] MEDS ORDERED: 0.9 % SODIUM CHLORIDE 1,000 ML IV SCH ×2 (15:12)
[2020-09-17] MEDS ORDERED: PROMETHAZINE 25 MG SUPP.RECT PR PRN (15:12)
[2020-09-17] MEDS ORDERED: POTASSIUM CHLORIDE 40 MEQ in DEXTROSE 5% IN WATER 500 ML IV PRN (15:12)
[2020-09-17] MEDS ORDERED: POTASSIUM CHLORIDE 20 MEQ TABLET PO PRN ×2 (15:12)
[2020-09-17] MEDS ORDERED: SENNOSIDES 1 TABLET PO PRN (15:12)
[2020-09-17] MEDS ORDERED: ONDANSETRON 4 MG ODT TABLET SL PRN (15:12)
[2020-09-17] MEDS ORDERED: CYCLOBENZAPRINE 10 MG TABLET PO PRN (15:12)
[2020-09-17] MEDS ORDERED: DEXTROSE 50% 50 ML VIAL IV PRN (15:12)
[2020-09-17] MEDS: MAGNESIUM SULFATE 2 GM/50 ML BAG IV PRN (17:30)
--- NOTE | 2020-09-17 22:28 | Internal Med Progress Note ---
SUBJECTIVE Subjective Patient information: Note initiated : 09/17/20 at 10:28 pm Service Date, if different from initiated Date: [] Patient: Dayanna Guo a 59 y/o F admitted on 09/14/20 for body aches. Chief Complaint: [] Interval history: History of present illness: Ms. Guo is a 59 year old F Presents to the ED with generalized feeling poorly for the past 4 days. She has body aches and chills. Her joint pain hurts worse than usual. She is had a dry cough. No nausea vomiting diarrhea or abdominal pain. Denies any sick contacts or Covid exposure. She is on calcium supplementation because he is she is usually hypocalcemic. Was in the hospital to longer with hypocalcemia and had her calcium adjusted. Is also found to have a UTI. She has had polyuria. Her Covid screen was negative In the ED IV fluid hydration 09/16-improved calcium and last 24 hours from 15.8-11.1. Creatinine down to 1.7. Improving volume depletion. Continue crystalloids. Hold calcium supplement until calcium level less than 10. Spontaneous muscle contraction/weakness leading to fall last night. Continue supervised ambulation/therapies. Continue antibiotic coverage for UTI. Pansensitive E. coli on cultures. On Rocephin. 09/17-patient doing well. Calcium down to 9.7. Improving renal function with creatinine down from 1.7-1.2. No overnight fever chills or concerns per staff. Complains of occasional episodes of muscle weakness and unsteady gait. Await PT eval for gait and safety evaluation. Tolerating diet. Feels a lot better. Denies diarrhea, chest pain Constitutional Vitals: Vital Signs Temp Pulse Resp BP Pulse Ox 98.6 F 96 H 14 147/77 93 09/17/20 17:16 09/17/20 19:11 09/17/20 17:16 09/17/20 19:11 09/17/20 19:11 Period Temp Pulse Resp BP Sys/Archuleta Pulse Ox Last 24 Hr 96.8 F-98.6 F 67-96 11-26 126-162/50-98 90-99 Intake and Output 09/17/20 09/17/20 09/18/20 13:59 21:59 05:59 Intake Total 2380 890 Output Total 2150 1300 Balance 230 -410 Alert and oriented Nonlabored breathing No anxiety No lymphedema Intake & Output: Intake & Output 09/17/20 09/17/20 09/18/20 13:59 21:59 05:59 Intake Total 2380 890 Output Total 2150 1300 Balance 230 -410 Intake: IV 1000 50 Sodium Chloride 0.9% 1,000 ml @ 1000 50 mls/hr IV .Q20H [facility] Rx#: [id number] Oral 1380 840 Output: Void Amount 1800 1250 Stool 350 50 Other: Meal Lunch Dinner Percent of Meal Consumed 100% 75% Feeding Ability Independent Urine Appearance Clear Clear Urine Color Pale Pale Urine Odor Normal Stool Size Small Stool Color Brown Stool Consistency Soft OBJ DATA Labs CBC & Chem 7: 09/16/20 05:09 09/18/20 05:14 Labs: Abnormal Lab Results 09/17/20 09/16/20 09/16/20 08:37 05:09 05:09 RBC 3.78 L Hgb 11.1 L Hct 35.3 L Lymph # (Auto) 1.28 L Carbon Dioxide 32 H 32 H Anion Gap 7.0 L 7.0 L BUN 26 H 34 H Creatinine 1.2 H 1.7 H Glucose 148 H Uric Acid 8.1 H Calcium 11.1 H Phosphorus Magnesium Lactate Dehydrogenase Total Protein 5.6 L 5.7 L Albumin Triglycerides 457 H 583 H 09/15/20 07:45 RBC Hgb Hct Lymph # (Auto) Carbon Dioxide 32 H Anion Gap 7.0 L BUN 37 H Creatinine 1.8 H Glucose 129 H Uric Acid 8.7 H Calcium 13.7 H* Phosphorus 5.0 H Magnesium 2.9 H Lactate Dehydrogenase 118 L Total Protein 5.5 L Albumin 2.9 L Triglycerides 747 H Meds: Medications Acetaminophen (Tylenol) 650 mg PO Q6HP PRN PRN Reason: PAIN/FEVER > 101 Albuterol/Ipratropium (Duoneb) 3 ml NEB Q4HP PRN PRN Reason: Shortness Of Breath Ceftriaxone Sodium (Rocephin) 1 gm IV Q24H [facility] Cyclobenzaprine HCl (Flexeril) 10 mg PO BIDP PRN PRN Reason: Spasms Dextrose (Dextrose 50%) 0 ml IV UD PRN PRN Reason: Hypoglycemia Diagnostic Test (Pha) (Accu-Chek) 1 each FS ACHS [facility] Last Admin: 09/17/20 20:30 Dose: 1 each Documented by: Docusate Sodium (Colace) 100 mg PO BID [facility] Last Admin: 09/17/20 20:29 Dose: 100 mg Documented by: Duloxetine HCl (Cymbalta) 30 mg PO BID [facility] Last Admin: 09/17/20 20:29 Dose: 30 mg Documented by: Enoxaparin Sodium (Lovenox) 30 mg SQ DAILY [facility] Gabapentin (Neurontin) 300 mg PO BID [facility] Last Admin: 09/17/20 20:29 Dose: 300 mg Documented by: Glucose (Insta-Glucose) 15 gm PO PRN PRN PRN Reason: Hypoglycemia Heparin Sodium (Porcine) (Heparin 10 Units/Ml Flush) 5 ml IV Q12 [facility] Hydralazine HCl (Apresoline) 10 - 20 mg IV Q4HP PRN PRN Reason: Agitation Sodium Chloride (Sodium Chloride 0.9%) 1,000 mls @ 0 mls/hr IV BOLUS [facility] Last Admin: 09/17/20 16:28 Dose: Not Given Documented by: Magnesium Sulfate (Magnesium Sulfate) 2 gm in 50 mls @ 50 mls/hr IV UD PRN PRN Reason: Magnesium </= 1.6 Last Infusion: 09/17/20 20:30 Dose: Infused Documented by: Potassium Chloride 40 meq/ (Dextrose) 520 mls @ 130 mls/hr IV UD PRN PRN Reason: Potassium < 3 Insulin Glargine (Lantus) 10 unit SQ BID [facility] Last Admin: 09/17/20 21:55 Dose: 10 units Documented by: Insulin Human Lispro (Humalog) 0 unit SQ [facility]; Protocol Last Admin: 09/17/20 21:54 Dose: 6 unit Documented by: Levothyroxine Sodium (Synthroid) 250 mcg PO QAMAC [facility] Ondansetron HCl (Zofran Odt) 4 mg SL Q4HP PRN PRN Reason: Nausea And Vomiting Ondansetron HCl (Zofran) 4 mg IV Q4HP PRN PRN Reason: Nausea And Vomiting Oxycodone/Acetaminophen (Percocet 5-325 Mg) 1 tab PO Q4HP PRN; Protocol PRN Reason: PAIN LEVEL 3-6 Last Admin: 09/17/20 20:29 Dose: 1 tab Documented by: Polyethylene Glycol (Miralax) 17 gm PO DAILYP PRN PRN Reason: Constipation Potassium Chloride (Kdur) 40 meq PO UD PRN PRN Reason: Potssium is 3-3.5 Potassium Chloride (Kdur) 40 meq PO UD PRN PRN Reason: Potassium < 3 [facility] Promethazine HCl (Phenergan) 25 mg [place] Q6HP PRN PRN Reason: Nausea And Vomiting Pyridostigmine [place] (Regonol) 10 mg IM 0300,0900,1500,2100 [facility] Last Admin: 09/17/20 21:55 Dose: 10 mg Documented by: Fanta (Senokot) 2 tab PO DAILYP PRN PRN Reason: Constipation Sodium Chloride (Saline Flush) 10 ml IV Q8 [facility] Last Admin: 09/17/20 21:57 Dose: Not Given Documented by: A/P Narrative A/P Narrative: A: * Hypercalcemia, combination of exogenous intake/severe volume depletion associated concentration: Downtrending from 15.8-11-> 9.7 * THANIA: Secondary to severe volume depletion from hypercalcemic related diuresis , creatinine improved from 1.7-1.2 * Severe volume depletion clinically improving with crystalloids * Complicated E. coli UTI, sensitive to Rocephin. * DM II: Continue basal prandial insulin * Anxiety disorder continue duloxetine * Neuropathy continue gabapentin * Hypothyroidism continue thyroxine * Chronic abdominal pain, neuropathy: Stable on home meds * h/o Recurrent SBO: Follows outpatient with Dr. Currie surgery * Morbid obesity: * History of myasthenia gravis: On prednisone/pyridostigmine * HTN: On lisinopril Plan * Continue crystalloid and hold calcium supplements * Continue antibiotics * Pre-existing medical condition management home meds * Monitor renal function * Prophylaxis Lovenox Time Spent With Patient Time: Total time spent is greater than 50% in coordination of care (as documented) at patient's floor/unit and/or counseling patient: QUALITY VTE Deep Vein Thrombosis/Pulmonary Embolism Present on Admission: No
[2020-09-18] MEDS: oxyCODONE/APAP 5/325MG TABLET PO PRN ×4 (03:28→21:30)
[2020-09-18] MEDS: PYRIDOSTIGMINE BROMIDE 10 MG/2 ML ML IM SCH ×4 (03:30→21:32)
[2020-09-18] MEDS: 0.9 % SODIUM CHLORIDE 10 ML SYRINGE IV SCH ×4 (04:03→21:32)
[2020-09-18] MEDS: hydrALAZINE 20 MG/ML VIAL IV PRN ×2 (05:52→23:37)
[2020-09-18 06:48] LABS: ALT/SGPT 10 U/L (<40); AST/SGOT 14 U/L (<32); Albumin 3.1 gm/dL (3.2-5.2); Albumin/Globulin Ratio 1.1 (1.0-2.3); Alkaline Phosphatase 59 U/L (39-117); Bilirubin,Direct < 0.2 mg/dL (<0.3); Bilirubin,Total < 0.2 mg/dL (0.1-1.0); Blood Urea Nitrogen 29 mg/dL (6-20); Calcium 10.1 mg/dL (8.6-10.4); Carbon Dioxide 30 mmol/L (22-30); Chloride 104 mmol/L (96-108); Globulin 2.7 gm/dL (2.2-3.7); Glomerular Filtration Rate 55; Glucose 108 mg/dL (70-105); Lactate Dehydrogenase 172 U/L (135-225); Phosphorous 2.5 mg/dL (2.5-4.5); Triglycerides 446 mg/dL (<150)
[2020-09-18] MEDS: LEVOTHYROXINE 125 MCG TABLET PO SCH (07:24)
[2020-09-18] MEDS: INSULIN LISPRO 1 UNIT/0.01 ML UNIT SQ SCH ×4 (07:25→21:31)
[2020-09-18] MEDS: cefTRIAXone 1 GM VIAL IV SCH (08:48)
[2020-09-18] MEDS: ENOXAPARIN 30 MG/0.3 ML SYRINGE SQ SCH (08:48)
[2020-09-18] MEDS: DOCUSATE SODIUM 100 MG CAPSULE PO SCH ×2 (08:49→21:30)
[2020-09-18] MEDS: DULoxetine 30 MG CAPSULE PO SCH ×2 (08:49→21:30)
[2020-09-18] MEDS: INSULIN GLARGINE, HUMAN 1 UNIT/0.01 ML SQ SCH ×2 (08:49→21:32)
[2020-09-18] MEDS: predniSONE 20 MG TABLET PO SCH (08:49)
[2020-09-18] MEDS: POLYETHYLENE GLYCOL 3350 17 GM PACKET PO PRN (08:59)
[2020-09-18] MEDS: GABAPENTIN 300 MG CAPSULE PO SCH ×2 (09:02→21:30)
--- NOTE | 2020-09-18 10:01 | Internal Med Progress Note ---
SUBJECTIVE Subjective Patient information: Note initiated : 09/18/20 at 9:57 am Service Date, if different from initiated Date: [] Patient: Dayanna Guo a 59 y/o F admitted on 09/14/20 for body aches. Chief Complaint: [] Interval history: History of present illness: Ms. Guo is a 59 year old F Presents to the ED with generalized feeling poorly for the past 4 days. She has body aches and chills. Her joint pain hurts worse than usual. She is had a dry cough. No nausea vomiting diarrhea or abdominal pain. Denies any sick contacts or Covid exposure. She is on calcium supplementation because he is she is usually hypocalcemic. Was in the hospital to longer with hypocalcemia and had her calcium adjusted. Is also found to have a UTI. She has had polyuria. Her Covid screen was negative In the ED IV fluid hydration 09/16-improved calcium and last 24 hours from 15.8-11.1. Creatinine down to 1.7. Improving volume depletion. Continue crystalloids. Hold calcium supplement until calcium level less than 10. Spontaneous muscle contraction/weakness leading to fall last night. Continue supervised ambulation/therapies. Continue antibiotic coverage for UTI. Pansensitive E. coli on cultures. On Rocephin. 09/17-patient doing well. Calcium down to 9.7. Improving renal function with creatinine down from 1.7-1.2. No overnight fever chills or concerns per staff. Complains of occasional episodes of muscle weakness and unsteady gait. Await PT eval for gait and safety evaluation. Tolerating diet. Feels a lot better. Denies diarrhea, chest pain 09/18-patient clinically a lot better. No overnight events. Calcium 10.1. Case discussed with surgery and recommended 25% reduction on calcium supplements as patient has no history of dramatic drop in calcium reportedly absorption. Also advised patient to continue adequate hydration. Case discussed with physical therapy. Patient was able to transfer out of bed and does not show signs of muscular weakness/transient flaccidity that led to the fall night before last. Anticipate discharge in 24 hours with continued physical therapy and improvement in calcium levels. Discussed treatment plan with Allen and she is agreeable with possible discharge 24 hours, COVID-19 negative Constitutional Vitals: Vital Signs Temp Pulse Resp BP Pulse Ox 98.1 F 85 20 152/82 97 12/06/20 05:30 09/18/20 07:39 09/18/20 07:39 09/18/20 07:39 09/18/20 07:39 Period Temp Pulse Resp BP Sys/Archuleta Pulse Ox Last 24 Hr 96.8 F-98.6 F 67-96 14-20 126-171/50-96 90-98 Intake and Output 09/17/20 09/18/20 09/18/20 21:59 05:59 13:59 Intake Total 890 480 800 Output Total 9664 495 0820 Balance -410 -120 -250 Weight 114.94 kg Alert oriented No anxiety No lymphedema Intake & Output: Intake & Output 09/17/20 09/18/20 09/18/20 21:59 05:59 13:59 Intake Total 890 480 800 Output Total 5429 084 9054 Balance -410 -120 -250 Weight 114.94 kg Intake: IV 50 800 Sodium Chloride 0.9% 1,000 ml @ 800 50 mls/hr IV .Q20H [facility] Rx#: [id number] Oral 840 480 Output: Void Amount 1250 600 800 Stool 50 250 Other: Meal Dinner Percent of Meal Consumed 75% Urine Appearance Clear Clear Clear Urine Color Pale Pale Pale Stool Size Small Moderate Stool Color Brown Brown Stool Consistency Soft Soft OBJ DATA Labs CBC & Chem 7: 09/16/20 05:09 09/18/20 05:14 Labs: Abnormal Lab Results 09/18/20 09/17/20 09/16/20 05:14 08:37 05:09 RBC Hgb Hct Lymph # (Auto) Carbon Dioxide 32 H 32 H Anion Gap 7.0 L 7.0 L BUN 29 H 26 H 34 H Creatinine 1.2 H 1.7 H Glucose 108 H 148 H Uric Acid 8.1 H Calcium 11.1 H Total Protein 5.8 L 5.6 L 5.7 L Albumin 3.1 L Triglycerides 446 H 457 H 583 H 09/16/20 05:09 RBC 3.78 L Hgb 11.1 L Hct 35.3 L Lymph # (Auto) 1.28 L Carbon Dioxide Anion Gap BUN Creatinine Glucose Uric Acid Calcium Total Protein Albumin Triglycerides Meds: Medications Acetaminophen (Tylenol) 650 mg PO Q6HP PRN PRN Reason: PAIN/FEVER > 101 Albuterol/Ipratropium (Duoneb) 3 ml NEB Q4HP PRN PRN Reason: Shortness Of Breath Ceftriaxone Sodium (Rocephin) 1 gm IV Q24H [facility] Last Admin: 09/18/20 08:48 Dose: 1 gm Documented by: Cyclobenzaprine HCl (Flexeril) 10 mg PO BIDP PRN PRN Reason: Spasms Dextrose (Dextrose 50%) 0 ml IV UD PRN PRN Reason: Hypoglycemia Diagnostic Test (Pha) (Accu-Chek) 1 each FS ACHS [facility] Last Admin: 09/18/20 07:24 Dose: 1 each Documented by: Docusate Sodium (Colace) 100 mg PO BID [facility] Last Admin: 09/18/20 08:49 Dose: 100 mg Documented by: Duloxetine HCl (Cymbalta) 30 mg PO BID [facility] Last Admin: 09/18/20 08:49 Dose: 30 mg Documented by: Enoxaparin Sodium (Lovenox) 30 mg SQ DAILY [facility] Last Admin: 09/18/20 08:48 Dose: 30 mg Documented by: Gabapentin (Neurontin) 300 mg PO BID [facility] Last Admin: 09/18/20 09:02 Dose: 300 mg Documented by: Glucose (Insta-Glucose) 15 gm PO PRN PRN PRN Reason: Hypoglycemia Heparin Sodium (Porcine) (Heparin 10 Units/Ml Flush) 5 ml IV Q12 [facility] Last Admin: 09/18/20 08:50 Dose: 5 ml Documented by: Hydralazine HCl (Apresoline) 10 - 20 mg IV Q4HP PRN PRN Reason: Agitation Last Admin: 09/18/20 05:52 Dose: 20 mg Documented by: Sodium Chloride (Sodium Chloride 0.9%) 1,000 mls @ 0 mls/hr IV BOLUS [facility] Last Admin: 09/17/20 16:28 Dose: Not Given Documented by: Magnesium Sulfate (Magnesium Sulfate) 2 gm in 50 mls @ 50 mls/hr IV UD PRN PRN Reason: Magnesium </= 1.6 Last Infusion: 09/17/20 20:30 Dose: Infused Documented by: Potassium Chloride 40 meq/ (Dextrose) 520 mls @ 130 mls/hr IV UD PRN PRN Reason: Potassium < 3 Insulin Glargine (Lantus) 10 unit SQ BID [facility] Last Admin: 09/18/20 08:49 Dose: 10 units Documented by: Insulin Human Lispro (Humalog) 0 unit SQ [facility]; Protocol Last Admin: 09/18/20 07:25 Dose: Not Given Documented by: Levothyroxine Sodium (Synthroid) 250 mcg PO [facility] Last Admin: 09/18/20 07:24 Dose: 250 mcg Documented by: Ondansetron HCl (Zofran Odt) 4 mg SL Q4HP PRN PRN Reason: Nausea And Vomiting Ondansetron HCl (Zofran) 4 mg IV Q4HP PRN PRN Reason: Nausea And Vomiting Oxycodone/Acetaminophen (Percocet 5-325 Mg) 1 tab PO Q4HP PRN; Protocol PRN Reason: PAIN LEVEL 3-6 Last Admin: 09/18/20 07:47 Dose: 1 tab Documented by: Polyethylene Glycol (Miralax) 17 gm PO DAILYP PRN PRN Reason: Constipation Last Admin: 09/18/20 08:59 Dose: 17 gm Documented by: Potassium Chloride (Kdur) 40 meq PO UD PRN PRN Reason: Potssium is 3-3.5 Potassium Chloride (Kdur) 40 meq PO UD PRN PRN Reason: Potassium < 3 Prednisone (Prednisone) 40 mg PO [facility] Last Admin: 09/18/20 08:49 Dose: 40 mg Documented by: Promethazine HCl (Phenergan) 25 mg [place] Q6HP PRN PRN Reason: Nausea And Vomiting Pyridostigmine [place] (Regonol) 10 mg IM 0300,0900,1500,2100 [facility] Last Admin: 09/18/20 08:48 Dose: 10 mg Documented by: Senna (Senokot) 2 tab PO DAILYP PRN PRN Reason: Constipation Sodium Chloride (Saline Flush) 10 ml IV Q8 [facility] Last Admin: 09/18/20 04:03 Dose: Not Given Documented by: A/P Narrative A/P Narrative: * Hypercalcemia, combination of exogenous intake/severe volume depletion assoc iated concentration: Downtrending from 15.8-11-> 9.7-> 10.1 . On discharge will advise a 25% dose reduction. * THANIA: Secondary to severe volume depletion from hypercalcemic related diuresis , creatinine improved from 1.8-1.2-> 1.1 * Severe volume depletion clinically improving with crystalloids. Encourage oral fluids * Complicated E. coli UTI, sensitive to Rocephin. Continue additional 3 days treatment * DM II: Continue basal prandial insulin/CC diet * Anxiety disorder continue duloxetine * Neuropathy continue gabapentin * Hypothyroidism continue thyroxine * Chronic abdominal pain, neuropathy: Stable on home meds * h/o Recurrent SBO: Follows outpatient with Dr. Currie surgery * Morbid obesity: * History of myasthenia gravis: On prednisone/pyridostigmine * HTN: Stable on lisinopril Plan * Continue crystalloid and hold calcium supplements * Continue antibiotics additional 3 days * Encourage oral fluids * Pre-existing medical condition management home meds * Schedule outpatient follow-up with Dr. Currie's clinic in 1 week * Prophylaxis Lovenox * Anticipate discharge in 24 hours Time Spent With Patient Time: Total time spent is greater than 50% in coordination of care (as documented) at patient's floor/unit and/or counseling patient: QUALITY VTE Deep Vein Thrombosis/Pulmonary Embolism Present on Admission: No
[2020-09-19] MEDS: PYRIDOSTIGMINE BROMIDE 10 MG/2 ML ML IM SCH ×4 (03:02→20:35)
[2020-09-19] MEDS: oxyCODONE/APAP 5/325MG TABLET PO PRN ×5 (03:21→21:10)
[2020-09-19] MEDS: 0.9 % SODIUM CHLORIDE 10 ML SYRINGE IV SCH ×4 (05:39→20:37)
[2020-09-19 06:06] LABS: ALT/SGPT 20 U/L (<40); AST/SGOT 13 U/L (<32); Albumin 3.4 gm/dL (3.2-5.2); Albumin/Globulin Ratio 1.3 (1.0-2.3); Alkaline Phosphatase 62 U/L (39-117); Bilirubin,Direct < 0.2 mg/dL (<0.3); Bilirubin,Total < 0.2 mg/dL (0.1-1.0); Blood Urea Nitrogen 32 mg/dL (6-20); Calcium 10.4 mg/dL (8.6-10.4); Carbon Dioxide 30 mmol/L (22-30); Chloride 102 mmol/L (96-108); Globulin 2.6 gm/dL (2.2-3.7); Glomerular Filtration Rate 55; Glucose 127 mg/dL (70-105); Lactate Dehydrogenase 190 U/L (135-225); Phosphorous 3.8 mg/dL (2.5-4.5); Triglycerides 417 mg/dL (<150); Uric Acid 4.4 mg/dL (2.5-8.0)
[2020-09-19] MEDS: LEVOTHYROXINE 125 MCG TABLET PO SCH (07:22)
[2020-09-19] MEDS: INSULIN LISPRO 1 UNIT/0.01 ML UNIT SQ SCH ×4 (07:40→21:10)
[2020-09-19] MEDS: 0.9 % SODIUM CHLORIDE 1,000 ML IV SCH (10:03)
[2020-09-19] MEDS: predniSONE 20 MG TABLET PO SCH (10:03)
[2020-09-19] MEDS: GABAPENTIN 300 MG CAPSULE PO SCH ×2 (10:04→20:36)
[2020-09-19] MEDS: INSULIN GLARGINE, HUMAN 1 UNIT/0.01 ML SQ SCH ×2 (10:04→21:10)
[2020-09-19] MEDS: DOCUSATE SODIUM 100 MG CAPSULE PO SCH ×2 (10:04→20:36)
[2020-09-19] MEDS: ENOXAPARIN 30 MG/0.3 ML SYRINGE SQ SCH (10:06)
[2020-09-19] MEDS: POLYETHYLENE GLYCOL 3350 17 GM PACKET PO PRN (10:07)
[2020-09-19] MEDS: cefTRIAXone 1 GM VIAL IV SCH (10:24)
[2020-09-19] MEDS: DULoxetine 30 MG CAPSULE PO SCH ×2 (10:24→20:36)
--- NOTE | 2020-09-19 10:35 | Internal Med Progress Note ---
SUBJECTIVE Subjective Patient information: Note initiated : 09/19/20 at 10:31 am Service Date, if different from initiated Date: [] Patient: Dayanna Guo a 59 y/o F admitted on 09/14/20 for body aches. Chief Complaint: [] Interval history: History of present illness: Ms. Guo is a 59 year old F Presents to the ED with generalized feeling poorly for the past 4 days. She has body aches and chills. Her joint pain hurts worse than usual. She is had a dry cough. No nausea vomiting diarrhea or abdominal pain. Denies any sick contacts or Covid exposure. She is on calcium supplementation because he is she is usually hypocalcemic. Was in the hospital to longer with hypocalcemia and had her calcium adjusted. Is also found to have a UTI. She has had polyuria. Her Covid screen was negative In the ED IV fluid hydration 09/16-improved calcium and last 24 hours from 15.8-11.1. Creatinine down to 1.7. Improving volume depletion. Continue crystalloids. Hold calcium supplement until calcium level less than 10. Spontaneous muscle contraction/weakness leading to fall last night. Continue supervised ambulation/therapies. Continue antibiotic coverage for UTI. Pansensitive E. coli on cultures. On Rocephin. 09/17-patient doing well. Calcium down to 9.7. Improving renal function with creatinine down from 1.7-1.2. No overnight fever chills or concerns per staff. Complains of occasional episodes of muscle weakness and unsteady gait. Await PT eval for gait and safety evaluation. Tolerating diet. Feels a lot better. Denies diarrhea, chest pain 09/18-patient clinically a lot better. No overnight events. Calcium 10.1. Case discussed with surgery and recommended 25% reduction on calcium supplements as patient has prior history of dramatic drop in calcium due to inadequate absorption. Also advised patient to continue adequate hydration. Case discussed with physical therapy. Patient was able to transfer out of bed and does not show signs of muscular weakness/transient flaccidity that led to the fall night before last. Anticipate discharge in soon with continued physical therapy and improvement in calcium levels. Discussed treatment plan with Dayanna and she is agreeable with possible discharge 24 hours, COVID-19 negative 09/19-patient doing well. Overnight events. No concerns per staff. Calcium uptrending now at 10.4. Continue crystalloids. Anticipate discharge in 24 hours once calcium less than 10. Continue therapy/nutrition support. Renal function much improved Constitutional Vitals: Vital Signs Temp Pulse Resp BP Pulse Ox 98.3 F 89 20 131/66 94 09/19/20 08:00 09/19/20 07:45 09/19/20 08:00 09/19/20 08:00 09/19/20 08:00 Period Temp Pulse Resp BP Sys/Archuleta Pulse Ox Last 24 Hr 97.4 F-98.8 F 77-92 - 125-178/66-99 92-97 Intake and Output 09/18/20 09/19/20 09/19/20 21:59 05:59 13:59 Intake Total 433 740 2144 Output Total 150 100 0 Balance 906 918 4870 Weight 117.118 kg Alert oriented No anxiety Nonlabored breathing Nondistended abdomen, colostomy site no erythema Intake & Output: Intake & Output 09/18/20 09/19/20 09/19/20 21:59 05:59 13:59 Intake Total 941 130 2043 Output Total 150 100 0 Balance 026 887 1493 Weight 117.118 kg Intake: Oral 012 065 0600 Output: # of times incontinent of urine 0 Stool 150 100 Other: Meal Dinner Breakfast Percent of Meal Consumed 100% 100% Urine Odor Normal Stool Size Small Small Stool Color Brown Stool Consistency Soft Soft Formed Formed # Voids 1 1 1 # Bowel Movements 1 OBJ DATA Labs CBC & Chem 7: 09/16/20 05:09 09/19/20 05:07 Labs: Abnormal Lab Results 09/19/20 09/18/20 09/17/20 05:07 05:14 08:37 Carbon Dioxide 32 H Anion Gap 7.0 L BUN 32 H 29 H 26 H Creatinine 1.2 H Glucose 127 H 108 H Total Protein 5.8 L 5.6 L Albumin 3.1 L Triglycerides 417 H 446 H 457 H Meds: Medications Acetaminophen (Tylenol) 650 mg PO Q6HP PRN PRN Reason: PAIN/FEVER > 101 Last Admin: 09/18/20 17:14 Dose: 650 mg Documented by: Albuterol/Ipratropium (Duoneb) 3 ml NEB Q4HP PRN PRN Reason: Shortness Of Breath Ceftriaxone Sodium (Rocephin) 1 gm IV Q24H [facility] Last Admin: 09/19/20 10:24 Dose: 1 gm Documented by: Cyclobenzaprine HCl (Flexeril) 10 mg PO BIDP PRN PRN Reason: Spasms Dextrose (Dextrose 50%) 0 ml IV UD PRN PRN Reason: Hypoglycemia Diagnostic Test (Pha) (Accu-Chek) 1 each FS [facility] Last Admin: 09/19/20 07:09 Dose: 1 each Documented by: Docusate Sodium (Colace) 100 mg PO BID [facility] Last Admin: 09/19/20 10:04 Dose: 100 mg Documented by: Duloxetine HCl (Cymbalta) 30 mg PO BID [facility] Last Admin: 09/19/20 10:24 Dose: 30 mg Documented by: Enoxaparin Sodium (Lovenox) 30 mg SQ DAILY [facility] Last Admin: 09/19/20 10:06 Dose: 30 mg Documented by: Gabapentin (Neurontin) 300 mg PO BID [facility] Last Admin: 09/19/20 10:04 Dose: 300 mg Documented by: Glucose (Insta-Glucose) 15 gm PO PRN PRN PRN Reason: Hypoglycemia Heparin Sodium (Porcine) (Heparin 10 Units/Ml Flush) 5 ml IV Q12 [facility] Last Admin: 09/19/20 10:06 Dose: 5 ml Documented by: Hydralazine HCl (Apresoline) 10 - 20 mg IV Q4HP PRN PRN Reason: Agitation Last Admin: 09/18/20 23:37 Dose: 20 mg Documented by: Magnesium Sulfate (Magnesium Sulfate) 2 gm in 50 mls @ 50 mls/hr IV UD PRN PRN Reason: Magnesium </= 1.6 Last Infusion: 09/17/20 20:30 Dose: Infused Documented by: Potassium Chloride 40 meq/ (Dextrose) 520 mls @ 130 mls/hr IV UD PRN PRN Reason: Potassium < 3 Sodium Chloride (Sodium Chloride 0.9%) 1,000 mls @ 0 mls/hr IV BOLUS [facility] Last Admin: 09/19/20 10:03 Dose: 999 mls/hr Documented by: Insulin Glargine (Lantus) 10 unit SQ BID [facility] Last Admin: 09/19/20 10:04 Dose: 10 units Documented by: Insulin Human Lispro (Humalog) 0 unit SQ ACHS [facility]; Protocol Last Admin: 09/19/20 07:40 Dose: Not Given Documented by: Levothyroxine Sodium (Synthroid) [facility] Last Admin: 09/19/20 07:22 Dose: 250 mcg Documented by: Ondansetron HCl (Zofran Odt) 4 mg SL Q4HP PRN PRN Reason: Nausea And Vomiting Last Admin: 09/18/20 23:38 Dose: 4 mg Documented by: Ondansetron HCl (Zofran) 4 mg IV Q4HP PRN PRN Reason: Nausea And Vomiting Oxycodone/Acetaminophen (Percocet 5-325 Mg) 1 tab PO Q4HP PRN; Protocol PRN Reason: PAIN LEVEL 3-6 Last Admin: 09/19/20 07:31 Dose: 1 tab Documented by: Polyethylene Glycol (Miralax) 17 gm PO DAILYP PRN PRN Reason: Constipation Last Admin: 09/19/20 10:07 Dose: 17 gm Documented by: Potassium Chloride (Kdur) 40 meq PO UD PRN PRN Reason: Potssium is 3-3.5 Potassium Chloride (Kdur) 40 meq PO UD PRN PRN Reason: Potassium < 3 Prednisone (Prednisone) 40 mg PO [facility] Last Admin: 09/19/20 10:03 Dose: 40 mg Documented by: Promethazine HCl (Phenergan) 25 mg NH Q6HP PRN PRN Reason: Nausea And Vomiting Pyridostigmine Collins (Regonol) 10 mg IM 0300,0900,1500,2100 [facility] Last Admin: 09/19/20 10:05 Dose: 10 mg Documented by: Senna (Senokot) 2 tab PO DAILYP PRN PRN Reason: Constipation Sodium Chloride (Saline Flush) 10 ml IV Q8 [facility] Last Admin: 09/19/20 10:07 Dose: 10 ml Documented by: A/P Narrative A/P Narrative: * Hypercalcemia, combination of exogenous intake/severe volume depletion assoc iated concentration: Downtrending from 15.8-11-> 10.4 . Continue crystalloids * THANIA: Secondary to severe volume depletion from hypercalcemic related diuresis , creatinine improved from 1.8-1.2-> 1.1 * Severe volume depletion clinically improving with crystalloids. Encourage oral fluids * Complicated E. coli UTI, sensitive to Rocephin. * DM II: Continue basal prandial insulin/CC diet * Anxiety disorder continue duloxetine * Neuropathy continue gabapentin * Hypothyroidism continue thyroxine * Chronic abdominal pain, neuropathy: Stable on home meds * h/o Recurrent SBO: Follows outpatient with Dr. Currie surgery * Morbid obesity: * History of myasthenia gravis: On prednisone/pyridostigmine * HTN: Stable on lisinopril Plan * Continue crystalloid and hold calcium supplements until discharge * Continue antibiotics additional 48 hours * Encourage oral fluids * Pre-existing medical condition management home meds * Schedule outpatient follow-up with Dr. Currie's clinic in 1 week * Prophylaxis Lovenox * Anticipate discharge soon once calcium less than 10 Time Spent With Patient Time: Total time spent is greater than 50% in coordination of care (as documented) at patient's floor/unit and/or counseling patient: QUALITY VTE Deep Vein Thrombosis/Pulmonary Embolism Present on Admission: No
[2020-09-19] MEDS: MAGNESIUM SULFATE 2 GM/50 ML BAG IV PRN (10:37)
[2020-09-20] MEDS: PYRIDOSTIGMINE BROMIDE 10 MG/2 ML ML IM SCH ×2 (03:14→08:42)
[2020-09-20] MEDS: oxyCODONE/APAP 5/325MG TABLET PO PRN ×2 (03:15→07:21)
[2020-09-20] MEDS: INSULIN LISPRO 1 UNIT/0.01 ML UNIT SQ SCH (07:20)
[2020-09-20] MEDS: LEVOTHYROXINE 125 MCG TABLET PO SCH (07:21)
[2020-09-20 07:40] LABS: ALT/SGPT 29 U/L (<40); AST/SGOT 14 U/L (<32); Albumin 3.3 gm/dL (3.2-5.2); Albumin/Globulin Ratio 1.5 (1.0-2.3); Alkaline Phosphatase 62 U/L (39-117); Bilirubin,Direct < 0.2 mg/dL (<0.3); Bilirubin,Total < 0.2 mg/dL (0.1-1.0); Blood Urea Nitrogen 32 mg/dL (6-20); Carbon Dioxide 31 mmol/L (22-30); Chloride 102 mmol/L (96-108); Globulin 2.2 gm/dL (2.2-3.7); Glomerular Filtration Rate 62; Glucose 126 mg/dL (70-105); Lactate Dehydrogenase 178 U/L (135-225); Phosphorous 3.6 mg/dL (2.5-4.5); Triglycerides 404 mg/dL (<150); Uric Acid 3.9 mg/dL (2.5-8.0)
[2020-09-20] MEDS: cefTRIAXone 1 GM VIAL IV SCH (08:40)
[2020-09-20] MEDS: POLYETHYLENE GLYCOL 3350 17 GM PACKET PO PRN (08:41)
[2020-09-20] MEDS: ENOXAPARIN 30 MG/0.3 ML SYRINGE SQ SCH (08:41)
[2020-09-20] MEDS: predniSONE 20 MG TABLET PO SCH (08:42)
[2020-09-20] MEDS: GABAPENTIN 300 MG CAPSULE PO SCH (08:42)
[2020-09-20] MEDS: DULoxetine 30 MG CAPSULE PO SCH (08:43)
[2020-09-20] MEDS: INSULIN GLARGINE, HUMAN 1 UNIT/0.01 ML SQ SCH (08:43)
[2020-09-20] MEDS: DOCUSATE SODIUM 100 MG CAPSULE PO SCH (08:43)
[2020-09-20] MEDS: 0.9 % SODIUM CHLORIDE 1,000 ML IV SCH (08:53)
[2020-09-20] MEDS ORDERED: HEPARIN SODIUM,PORCINE/PF 500 UNIT/5 ML SYRINGE IV ONE (09:00)
[2020-09-20] MEDS ORDERED: 0.9 % SODIUM CHLORIDE 10 ML SYRINGE IV SCH (09:00)
--- NOTE | 2020-09-20 09:05 | Discharge Summary ---
Discharge Provider Provider Patient information: Note initiated : 09/20/20 at 9:01 am Service Date, if different from initiated Date: [] Patient: Dayanna Guo a 59 y/o F admitted on 09/14/20 for body aches. Discharge diagnosis * Hypercalcemia, combination of exogenous intake/severe volume depletion associated concentration: Downtrending from 15.8-11-> 10.4->9 . Discharging home with advised to lower dose of calcitriol by 50%. Continue adequate hydration. * THANIA: Secondary to severe volume depletion from hypercalcemia related diuresis , creatinine improved from 1.8-1.2-> 1.1 * Severe volume depletion clinically improving with crystalloids. Encourage oral fluids * Complicated E. coli UTI, completed antibiotics * DM II: Continue basal prandial insulin/CC diet * Anxiety disorder continue duloxetine * Neuropathy continue gabapentin * Hypothyroidism continue thyroxine * Chronic abdominal pain, neuropathy: Stable on home meds * h/o Recurrent SBO: Follows outpatient with Dr. Currie surgery. Schedule appointment in 1 week * Morbid obesity: * History of myasthenia gravis: On prednisone/pyridostigmine * HTN: Stable on lisinopril Brief hospital course Interval history: History of present illness: Ms. Guo is a 59 year old F Presents to the ED with generalized feeling poorly for the past 4 days. She has body aches and chills. Her joint pain hurts worse than usual. She is had a dry cough. No nausea vomiting diarrhea or abdominal pain. Denies any sick contacts or Covid exposure. She is on calcium supplementation because he is she is usually hypocalcemic. Was in the hospital to longer with hypocalcemia and had her calcium adjusted. Is also found to have a UTI. She has had polyuria. Her Covid screen was negative In the ED IV fluid hydration 09/16-improved calcium and last 24 hours from 15.8-11.1. Creatinine down to 1.7. Improving volume depletion. Continue crystalloids. Hold calcium supplement until calcium level less than 10. Spontaneous muscle contraction/weakness leading to fall last night. Continue supervised ambulation/therapies. Continue antibiotic coverage for UTI. Pansensitive E. coli on cultures. On Rocephin. 09/17-patient doing well. Calcium down to 9.7. Improving renal function with creatinine down from 1.7-1.2. No overnight fever chills or concerns per staff. Complains of occasional episodes of muscle weakness and unsteady gait. Await PT eval for gait and safety evaluation. Tolerating diet. Feels a lot better. Denies diarrhea, chest pain 09/18-patient clinically a lot better. No overnight events. Calcium 10.1. Case discussed with surgery and recommended 25% reduction on calcium supplements as patient has prior history of dramatic drop in calcium due to inadequate absorption. Also advised patient to continue adequate hydration. Case discussed with physical therapy. Patient was able to transfer out of bed and does not show signs of muscular weakness/transient flaccidity that led to the fall night before last. Anticipate discharge in soon with continued physical therapy and improvement in calcium levels. Discussed treatment plan with Dayanna and she is agreeable with possible discharge 24 hours, COVID-19 negative 09/19-patient doing well. Overnight events. No concerns per staff. Calcium uptrending now at 10.4. Continue crystalloids. Anticipate discharge in 24 hours once calcium less than 10. Continue therapy/nutrition support. Renal function much improved 09/20-calcium down at 9. Patient discharging with advised to follow-up with primary care physician and with surgeon Dr. Currie in 1 week. Continue colostomy care. Lower dose of calcitriol by 50% . Maintain adequate hydration. Date of admission: 09/14/20 23:40 Discharge date: 09/20/20 Primary care physician: Douglas Haque Consults: 09/15/20 07:41 Consult to Physician [CONS] Routine Comment: Consulting Provider: Smith Vu Reason For Exam: Physician to Consult Discharge Meds Discharge Medications Home Medications duloxetine 30 mg PO BID 11/30/16 [History Confirmed 09/15/20 Last Taken 09/14/20 09:15] levothyroxine 250 mcg PO QAMAC 08/20/17 [History Confirmed 09/15/20 Last Taken 09/14/20 09:15] calcitriol See Rx Instructions .ROUTE .COMPLEX 02/11/19 [History Confirmed 09/15/20 Last Taken 09/14/20 09:15] promethazine 25 mg PO Q6HP PRN #60 tab 02/13/19 [Rx Confirmed 09/14/20 Last Taken 05/06/20 21:00] insulin glargine 10 unit SQ BID 09/30/19 [History Confirmed 09/15/20 Last Taken 09/14/20 09:15] Accu-Chek 1 each FS ACHS strip 12/03/19 [Rx Confirmed 09/14/20 Last Taken 05/06/20 06:30] cyclobenzaprine 10 mg PO BIDP PRN 12/13/19 [History Confirmed 09/15/20 Last Taken 05/06/20 06:30] magnesium oxide 500 mg PO BID 12/13/19 [History Confirmed 09/15/20 Last Taken 09/14/20 09:15] ondansetron 4 mg SL Q4HP PRN 12/24/19 [History Confirmed 09/14/20 Last Taken 04/06/20 08:00] promethazine 25 mg DC Q6HP PRN 12/24/19 [History Confirmed 09/14/20 Last Taken 02/21/20 22:30] pyridostigmine bromide 5 mg/mL injection solution 10 mg IM Q6H #240 ml 01/04/20 [Rx Confirmed 09/15/20 Last Taken 09/14/20 09:15] filter needles 19 x 1 1/2" #100 each 04/06/20 [Rx Confirmed 09/18/20 Last Taken Unknown] metformin 500 mg PO BID 07/12/20 [History Confirmed 09/15/20 Last Taken 09/14/20 09:15] syringe with needle 3 mL 25 gauge x 1" See Rx Instructions .ROUTE .COMPLEX #100 unspecified 08/31/20 [Rx Confirmed 09/14/20 Last Taken Unknown] acetaminophen 500 mg PO Q6HP PRN 09/14/20 [History Confirmed 09/14/20 Last Taken Unknown] gabapentin 300 mg PO BID 09/14/20 [History Confirmed 09/15/20 Last Taken 09:15] prednisone 40 mg PO QAMCC 09/14/20 [History Confirmed 09/14/20 Last Taken Unknown] COURSE Hospital Course Hospital course: . Discharge diagnosis: Hypercalcemia/THANIA Time Spent with Patient Time attestation: Total time spent providing and/or coordinating discharge services: EXAM Constitutional Vitals: Temp Pulse Resp BP Pulse Ox 97.3 F 80 20 168/93 98 09/20/20 07:51 09/20/20 03:09 09/20/20 07:51 09/20/20 07:51 09/20/20 07:51 Discharge Data Data Completed and Pending Labs on day of discharge: Labs from last 24 hours 09/20/20 05:17 Sodium 141 Potassium 4.0 Chloride 102 Carbon Dioxide 31 H Anion Gap 8.0 BUN 32 H Creatinine 1.0 GFR Calculation 62 Glucose 126 H Uric Acid 3.9 Calcium 9.0 Phosphorus 3.6 Magnesium 1.7 Total Bilirubin < 0.2 Direct Bilirubin < 0.2 GGT 23 AST 14 ALT 29 Alkaline Phosphatase 62 Lactate Dehydrogenase 178 Total Protein 5.5 L Albumin 3.3 Globulin 2.2 Albumin/Globulin Ratio 1.5 Triglycerides 404 H Discharge Plan Patient/Caregiver Discharge Instructions Activity: increase activity as tolerated Diet: Consistent Carbohydrate Instructions: Acute Kidney Injury (GEN), Urinary Tract Infection in Children (GEN), Hypocalcemia (GEN) Activity Restrictions/Additional Instructions: Lower calcitriol dose by 50% Follow-up with surgery in [address] Currie for repeat labs This discharge packet is provided to you to help keep you informed about your care. We want to ensure you get everything you need when you go home. You will also be receiving a call from us in a few days to follow up with you and see how you are doing since your discharge. This gives us a chance to listen to any concerns you maybe experiencing since you were discharged or any additional needs you may have, as well as providing us feedback on your care experience. We strive to always provide excellent care and thank you for your feedback and for choosing [facility]. Prescriptions: Continued pyridostigmine bromide 5 mg/mL solution 10 mg IM Q6H Qty: 240 RF: 5 (DME) filter needles 19 x 1 1/2" 19 x 1 1/2 " needle See Rx Instructions .ROUTE .MEDSUPPLY Qty: 100 RF: 1 syringe with needle [BD Luer-Archie Syringe] 3 mL 25 gauge x 1" syringe See Rx Instructions .ROUTE .COMPLEX Qty: 100 RF: 4 duloxetine 30 MG capsule 30 mg PO BID RF: 0 levothyroxine 125 MCG tablet 250 mcg PO QAMAC RF: 0 calcitriol 0.25 MCG capsule See Rx Instructions .ROUTE .COMPLEX RF: 0 promethazine 25 MG tablet 25 mg PO Q6HP PRN (Reason: Nausea) Qty: 60 RF: 3 insulin glargine 1 UNIT/0.01 ML unit 10 unit SQ BID RF: 0 Accu-Chek 1 EACH strip 1 each FS ACHS RF: 0 cyclobenzaprine 10 MG tablet 10 mg PO BIDP PRN (Reason: Spasms) RF: 0 magnesium oxide 250 MG tablet 500 mg PO BID RF: 0 promethazine 25 MG suppository 25 mg DC Q6HP PRN (Reason: nausea vomitting) RF: 0 ondansetron 4 MG tablet 4 mg SL Q4HP PRN (Reason: Nausea) RF: 0 metformin 500 MG tablet 500 mg PO BID RF: 0 acetaminophen 325 MG tablet 500 mg PO Q6HP PRN (Reason: Pain/Fever > 101) RF: 0 prednisone 20 MG tablet 40 mg PO QAMCC RF: 0 gabapentin 300 mg capsule 300 mg PO BID RF: 0 Follow Up Plan Follow up with: Douglas Haque MD [Primary Care Provider] - 09/28/20 2:00 pm Patient Disposition: Home, Self-Care Prognosis: Fair Rehab Potential: Fair I certify that the patient requires SNF services: No Overall status at discharge: patient is progressing back to baseline Discharge Orders: Discharge Order (Routine); Ordered 09/20/20 Ordered By: Prince JIMENEZ VTE Deep Vein Thrombosis/Pulmonary Embolism Present on Admission: No
== END 2020-09-20 10:51 | disposition home or self-care (01) | DRG 641 ==
LOC: ED 16:39 → ICU 23:40
PROVIDERS: ADMIT Internal Medicine; ATTEND Internal Medicine

== ENCOUNTER 2020-11-24 02:07 | Inpatient (IN) ==
[2020-11-24] MEDS ORDERED: ONDANSETRON 4 MG/2 ML VIAL IV ONE (02:24)
[2020-11-24] MEDS: HYDROmorphone 0.5 MG/0.5 ML SYRINGE IV PRN ×8 (02:43→23:57)
[2020-11-24 03:28] LABS: ALT/SGPT 18 U/L (<40); AST/SGOT 11 U/L (<32); Albumin 3.7 gm/dL (3.2-5.2); Albumin/Globulin Ratio 1.3 (1.0-2.3); Alkaline Phosphatase 127 U/L (39-117); Bilirubin,Total < 0.2 mg/dL (0.1-1.0); Blood Urea Nitrogen 23 mg/dL (6-20); Calcium 7.8 mg/dL (8.6-10.4); Carbon Dioxide 28 mmol/L (22-30); Chloride 89 mmol/L (96-108); Globulin 2.9 gm/dL (2.2-3.7); Glomerular Filtration Rate 55; Glucose 265 mg/dL (70-105)
[2020-11-24 03:40] LABS: Basophils # (Auto) 0.04 K/mcL (0.00-0.20); Basophils % (Auto) 0.3 % (0.0-2.0); Eosinophils # (Auto) 0.11 K/mcL (0.00-0.70); Eosinophils % (Auto) 0.9 % (0.0-7.0); Hematocrit 44.4 % (36.0-48.0); Hemoglobin 14.9 g/dL (12.0-15.0); Lymphocytes # (Auto) 3.41 K/mcL (1.50-4.80); Lymphocytes % (Auto) 28.2 % (15.0-49.0); Mean Cell Volume 87.4 fL (80.0-100.0); Mean Corpuscular HGB Conc 33.6 g/dL (31.0-36.0); Mean Platelet Volume 9.5 fL (7.4-10.4); Monocytes # (Auto) 1.05 K/mcL (0.10-0.90); Monocytes % (Auto) 8.7 % (1.0-12.0); Neutrophils % (Auto) 61.9 % (38.0-78.0); Platelet Count 380 K/mcL (140-440); RBC 5.08 M/mcL (4.00-5.20); Red Cell Distribution Width 13.7 % (11.5-14.5); WBC 12.1 K/mcL (4.5-11.0)
--- NOTE | 2020-11-24 04:03 | Emergency Department Note ---
Abdominal Pain HPI General Chief Complaint: Abdominal Pain Stated Complaint: "Bowel obstruction" Time Seen by Provider: 11/24/20 03:59 Source: patient Mode of arrival: wheelchair Limitations: physical limitation History of Present Illness HPI Narrative: Narrative: This 59-year-old female has had onset of some of the bloating and abdominal pain symptoms off and on since October but around 5 PM (11 hours ago) she developed significant bloating and pain worse than before leading to nausea with some vomiting 20+ times with dry heaves, some foam, etc. She is lightheaded and weak a little bit because of poor p.o. Her heart rate normally goes up to 120 even resting. She has developed some sweatiness but no fevers or chills. She is still having some stool output and air output from her ostomy. She feels a little short of breath from the pressure that is caused from the bloating. Related Data Home Medications Medication Instructions Recorded Confirmed duloxetine 30 mg PO BID 11/30/16 11/24/20 levothyroxine 250 mcg PO QAMAC 08/20/17 11/24/20 calcitriol See Rx Instructions .ROUTE .COMPLEX 02/11/19 11/24/20 insulin glargine 10 unit SQ BID 09/30/19 11/24/20 cyclobenzaprine 10 mg PO BIDP PRN 12/13/19 11/24/20 magnesium oxide 500 mg PO BID 12/13/19 11/24/20 ondansetron 4 mg SL Q4HP PRN 12/24/19 11/24/20 promethazine 25 mg GA Q6HP PRN 12/24/19 11/24/20 metformin 500 mg PO BID 07/12/20 11/24/20 acetaminophen 500 mg PO Q6HP PRN 09/14/20 11/24/20 gabapentin 300 mg PO BID 09/14/20 11/24/20 prednisone 40 mg PO QAC 09/14/20 11/24/20 Previous Rx's Medication Instructions Recorded promethazine 25 mg PO Q6HP PRN #60 tab 02/13/19 Accu-Chek 1 each FS ACHS strip 12/03/19 pyridostigmine bromide 5 mg/mL 10 mg IM Q6H #240 ml 01/04/20 injection solution syringe with needle 3 mL 25 gauge See Rx Instructions .ROUTE 08/31/20 x 1" .COMPLEX #100 unspecified filter needles 19 x 1 1/2" #100 each 10/19/20 Allergies Allergy/AdvReac Type Severity Reaction Status Date / Time Sulfa (Sulfonamide Allergy Severe Anaphylaxis Verified 11/24/20 02:08 Antibiotics) adhesive tape AdvReac Mild Blister Verified 11/24/20 02:08 metoclopramide [From Reglan] AdvReac Mild Anxiety Verified 11/24/20 02:08 steri strips AdvReac Mild Blister Uncoded 12/02/19 06:48 Review of Systems ROS ROS Narrative: Narrative: No sore throat. Has had a little bit of sneezing last couple of weeks No chest pain No cough No hematochezia in her ostomy output No dysuria or frequency but has had some foul smell No headaches. Feels weak. No anxiety or depression. [facility] Narrative Patient History Narrative: Narrative: Medical/Surgical/Family History All Active Problems (Updated 11/24/20 @ 07:15 by Robb Goldberg DO) Acute UTI (Acute) Hypercalcemia (Acute) COVID-19 (Acute) Acute kidney injury (Acute) Hypercalcemia (Acute) Hyponatremia (Acute) Elevated serum creatinine (Acute) Low back pain (Acute) Partial small bowel obstruction (Acute) Nausea and vomiting (Acute) Hypokalemia (Acute) Hyponatremia (Acute) Elevated LFTs (Acute) Small bowel obstruction (Acute) Dehydration (Acute) Primary chronic pseudo-obstruction of small intestine (Acute) UTI (urinary tract infection) (Acute) Hypocalcemia (Acute) Nausea & vomiting (Acute) Severe sepsis (Acute) 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 (Acute) Chronic, continuous use of opioids (Chronic) Myasthenia gravis (Chronic) Chronic intestinal pseudo-obstruction (Chronic) Recurrent intestinal obstruction (Chronic) Diabetes mellitus type 2, uncontrolled (Chronic) LA (obstructive sleep apnea) (Chronic) Hypertension (Chronic) Obesity, Class II, BMI 35-39.9 (Chronic) Low blood magnesium level (Chronic) Abdominal pain (Chronic) Chronic use of steroids (Chronic) Abnormal liver enzymes (Chronic) Hypothyroidism (Chronic) Sarcoidosis (Chronic) Polyglandular autoimmune syndrome (Chronic) Recurrent abdominal pain (Chronic) Medical History (Updated 11/24/20 @ 07:15 by Robb Goldberg DO) Abdominal pain (Resolved) Abdominal pain (Chronic) Abdominal wound dehiscence (Resolved) Abnormal liver enzymes (Chronic) Achalasia and cardiospasm (Resolved) Acute respiratory insufficiency (Resolved) Adverse reaction to drug (Resolved) Anaphylaxis (Resolved) Bowel obstruction (Resolved) 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) Chronic use of steroids (Chronic) for myasthenia gravis; 10+ years Chronic, continuous use of opioids (Chronic) Constipation due to neurogenic bowel (Resolved) Constipation due to pain medication therapy (Resolved) Dehydration (Resolved) Dehydration (Resolved) Diabetes mellitus type 2, uncontrolled (Chronic) Encounter for care related to Port-a-Cath (Resolved) Fecal impaction (Resolved) Foot sprain (Resolved) Hypercalcemia (Resolved) Hypertension (Chronic) Hypocalcemia (Resolved) Hyponatremia (Resolved) Hypothyroidism (Chronic) Ileus (Resolved) Infiltrate of lung present on imaging of chest (Resolved) Intractable vomiting (Resolved) Lactic acid acidosis (Resolved) Low blood magnesium level (Chronic) Myasthenia gravis (Chronic) Nausea (Resolved) Nausea & vomiting (Resolved) Nausea & vomiting (Resolved) Nausea and vomiting (Resolved) Obesity, Class II, BMI 35-39.9 (Chronic) Obstruction of descending colon (Resolved) LA (obstructive sleep apnea) (Chronic) Pancreatitis (Resolved) Parastomal hernia with obstruction, without gangrene (Resolved) Partial intestinal obstruction, unspecified as to cause (Resolved) Partial small bowel obstruction (Resolved) Pneumonia (Resolved) 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) Pseudoobstruction of colon (Resolved) Pyelonephritis (Resolved) Recurrent abdominal pain (Chronic) Recurrent intestinal obstruction (Chronic) many recurrences; many surgical interventions Sarcoidosis (Chronic) Sepsis (Resolved) Sepsis associated hypotension (Resolved) Sepsis with acute hypoxic respiratory failure (Resolved) Severe sepsis (Resolved) Sigmoid volvulus (Resolved) Sinus tachycardia (Resolved) Sinus tachycardia (Resolved) Small bowel obstruction (Resolved) Small bowel obstruction (Resolved) Small bowel obstruction (Resolved) Small bowel obstruction (Resolved) Small bowel obstruction (Resolved) Small bowel obstruction (Resolved) Small bowel obstruction due to adhesions (Resolved) Small bowel obstruction due to postoperative adhesions (Resolved) Small bowel obstruction, partial (Resolved) Supraventricular tachycardia (Resolved) UTI (urinary tract infection) (Resolved) UTI (urinary tract infection) (Resolved) Volvulus of sigmoid colon (Resolved) Surgical History History of exploratory laparotomy (Acute) 10/17/2017-with adhesiolysis History of exploratory laparotomy (Acute) 12/01/2017-with adhesiolysis History of exploratory laparotomy (Acute) 07/18/2018 History of exploratory laparotomy (Acute) 08/10/2018-Exploratory laparotomy with small bowel adhesiolysis and incisional hernia repair with mesh graft S/P ileostomy (Resolved) Family History CAD (coronary artery disease) Father Mother CVA (cerebral vascular accident) Grandfather Grandmother Social History Smoking Status: Former smoker Alcohol Intake Frequency: does not drink Substance Use: does not use Exam Narrative Narrative: Narrative: General Limitations: physical limitation General appearance: Present alert, grimacing (occasional), in no apparent distress and nontoxic Head Head: Present atraumatic and normocephalic Eye Eye: Present normal appearance, PERRL and EOMI ENT ENT: Present normal oropharynx and mucous membranes moist Neck Neck: Present trachea midline; Absent lymphadenopathy and thyromegaly Chest Chest: Present symmetric chest wall rise Respiratory Respiratory: Present normal lung sounds bilaterally; Absent respiratory distress, rales/crackles, wheezes, stridor, accessory muscle use and prolonged expiratory phase Cardiovascular Cardiovascular: Present regular rate and normal rhythm; Absent systolic murmur and diastolic murmur Adbominal Abdominal: Present soft, distention (Moderate; but difficult to tell due to morbid abdominal obesity.) and tenderness (Diffuse, mild-moderate); Absent guarding, rebound, rigidity, organomegaly and mass Back Back: Neurological Neurological: Present alert and oriented X3 Psychiatric Psychiatric: Present normal affect, polite and pleasant; Absent depressed, agitated, anxious and poor eye contact Skin Skin: Present warm (WNL) and dry; Absent cyanosis and pallor Course Vital Signs Vital signs: Vital Signs Temperature 98.1 F 11/24/20 02:08 Pulse Rate 139 H 11/24/20 02:08 Respiratory Rate 20 11/24/20 02:08 Blood Pressure 143/115 11/24/20 02:08 Pulse Oximetry (%) 97 11/24/20 02:08 Temperature 98.1 F 11/24/20 02:08 Pulse Rate 114 H 11/24/20 07:04 Respiratory Rate 20 11/24/20 02:08 Blood Pressure 156/108 11/24/20 07:04 Pulse Oximetry (%) 99 11/24/20 07:04 [facility] MDM Narrative Medical decision making narrative: Narrative: Interviewed and examined. Abdominal pain with bloating onset around 5 PM. Rule out obstruction versus her recurring pseudoobstruction's. Pain control and nausea control. Is having stool and gas output from her ostomy. Labs include white count 12.1. No anemia. Lactic acid 5.0. This is higher than her usual which ranges between 0.9 and 3.0. Potassium a bit low at 3.1 with chloride low at 89. BUN mildly elevated at 23 but creatinine normal at 1.1. Glucose elevated at 265. Calcium low at 7.8. Alkaline phos slightly elevated at 127 which is more than usual for her. Proteins in normal ranges. 2 view abdomen: Multiple air-fluid levels with giant bubble in the left upper quadrant. We will give a second liter of fluid and additional nausea medicine because she is having her nausea come back. 4:37 AM - with her potassium a bit low at 3.1 which is unusual for her will add 40 mEq as a K rider. 6:19 AM - abdominal x-ray radiologist reading: FINDINGS:Gaseous gastric distention. There is distended small bowel. Patient does not have a colon. Findings are consistent with recurrent small bowel obstruction. Small bowel measures approximate 7 cm in cross-sectional diameter. 7:06 AM - I spoke with Dr. Currie, he recommends going ahead with admission, IV fluids, nasogastric tube, potassium replacement. Lab Data Result diagrams: 11/24/20 02:36 11/24/20 02:36 Labs: Lab Results 11/24/20 11/24/20 11/24/20 Range/Units 02:36 02:36 02:36 WBC 12.1 H (4.5-11.0) K/mcL RBC 5.08 (4.00-5.20) M/mcL Hgb 14.9 (12.0-15.0) g/dL Hct 44.4 (36.0-48.0) % MCV 87.4 (80.0-100.0) fL MCH 29.3 (26.0-34.0) pg MCHC 33.6 (31.0-36.0) g/dL RDW 13.7 (11.5-14.5) % Plt Count 380 (140-440) K/mcL MPV 9.5 (7.4-10.4) fL Neut % (Auto) 61.9 (38.0-78.0) % Lymph % (Auto) 28.2 (15.0-49.0) % [place] % (Auto) 8.7 (1.0-12.0) % Eos % (Auto) 0.9 (0.0-7.0) % Baso % (Auto) 0.3 (0.0-2.0) % Lymph # (Auto) 3.41 (1.50-4.80) K/mcL [place] # (Auto) 1.05 H (0.10-0.90) K/mcL Eos # (Auto) 0.11 (0.00-0.70) K/mcL Baso # (Auto) 0.04 (0.00-0.20) K/mcL Absolute Neutrophils 7.49 (1.80-8.00) K/mcL VBG Lactic Acid 5.0 H* (0.5-2.0) mmol/L Sodium 133 (133-145) mmol/L Potassium 3.1 L (3.3-5.1) mmol/L Chloride 89 L (96-108) mmol/L Carbon Dioxide 28 (22-30) mmol/L Anion Gap 16.0 (8.0-16.0) BUN 23 H (6-20) mg/dL Creatinine 1.1 (0.6-1.1) mg/dL GFR Calculation 55 Glucose 265 H (70-105) mg/dL Calcium 7.8 L (8.6-10.4) mg/dL Total Bilirubin < 0.2 (0.1-1.0) mg/dL AST 11 (<32) U/L ALT 18 (<40) U/L Alkaline Phosphatase 127 H (39-117) U/L Total Protein 6.6 (5.9-8.4) gm/dL Albumin 3.7 (3.2-5.2) gm/dL Globulin 2.9 (2.2-3.7) gm/dL Albumin/Globulin Ratio 1.3 (1.0-2.3) Discharge Plan Patient/Caregiver Discharge Instructions Pt seen by FACILITIES ENGINEER/PA only: No Clinical Impression: Partial small bowel obstruction, Nausea and vomiting, Hypokalemia Patient Disposition: Xfer As Inpt ([facility]) Follow up with: Douglas Haque MD [Primary Care Provider] - Prescriptions: No Action pyridostigmine bromide 5 mg/mL solution 10 mg IM Q6H Qty: 240 RF: 5 syringe with needle [BD Luer-Archie Syringe] 3 mL 25 gauge x 1" syringe See Rx Instructions .ROUTE .COMPLEX Qty: 100 RF: 4 (DME) filter needles 19 x 1 1/2" 19 x 1 1/2 " needle See Rx Instructions .ROUTE .MEDSUPPLY Qty: 100 RF: 1 duloxetine 30 MG capsule 30 mg PO BID RF: 0 levothyroxine 125 MCG tablet 250 mcg PO QAMAC RF: 0 calcitriol 0.25 MCG capsule See Rx Instructions .ROUTE .COMPLEX RF: 0 promethazine 25 MG tablet 25 mg PO Q6HP PRN (Reason: Nausea) Qty: 60 RF: 3 insulin glargine 1 UNIT/0.01 ML unit 10 unit SQ BID RF: 0 Accu-Chek 1 EACH strip 1 each FS ACHS RF: 0 cyclobenzaprine 10 MG tablet 10 mg PO BIDP PRN (Reason: Spasms) RF: 0 magnesium oxide 250 MG tablet 500 mg PO BID RF: 0 promethazine 25 MG suppository 25 mg GA Q6HP PRN (Reason: nausea vomitting) RF: 0 ondansetron 4 MG tablet 4 mg SL Q4HP PRN (Reason: Nausea) RF: 0 metformin 500 MG tablet 500 mg PO BID RF: 0 acetaminophen 325 MG tablet 500 mg PO Q6HP PRN (Reason: Pain/Fever > 101) RF: 0 prednisone 20 MG tablet 40 mg PO QAMCC RF: 0 gabapentin 300 mg capsule 300 mg PO BID RF: 0
[2020-11-24] MEDS ORDERED: PROMETHAZINE 25 MG/ML VIAL IV ONE ×2 (04:17→07:02)
[2020-11-24] MEDS ORDERED: 0.9 % SODIUM CHLORIDE 1,000 ML IV ONE ×2 (04:18→04:45)
[2020-11-24] MEDS ORDERED: POTASSIUM CHLORIDE 20 MEQ in DEXTROSE 5% IN WATER 250 ML IV ONE (04:38)
[2020-11-24] MEDS ORDERED: POTASSIUM CHLORIDE 40 MEQ in DEXTROSE 5% IN WATER 500 ML IV ONE (04:39)
[2020-11-24] MEDS ORDERED: POTASSIUM CHLORIDE 20 MEQ/10 ML VIAL IV ONE (04:59)
--- NOTE | 2020-11-24 06:00 | XRay Report ---
INDICATION: History of recurrent bowel obstruction. Severe abdominal pain TECHNIQUE: Supine and upright abdomen. COMPARISON: Multiple previous plain film examinations and CT scans FINDINGS:Gaseous gastric distention. There is distended small bowel. Patient does not have a colon. Findings are consistent with recurrent small bowel obstruction. Small bowel measures approximate 7 cm in cross-sectional diameter. There is no pneumoperitoneum. No biliary or portal venous gas. There is no pneumatosis. IMPRESSION: Recurrent small bowel obstruction Interpreted and Authenticated by: All Cormier 11/24/20
[2020-11-24] MEDS ORDERED: NALOXONE HCL 0.4 MG/ML VIAL IV PRN (07:20)
[2020-11-24] MEDS ORDERED: PROMETHAZINE 25 MG/ML VIAL IM PRN (07:20)
[2020-11-24] MEDS ORDERED: ONDANSETRON 4 MG/2 ML VIAL IV PRN (07:20)
[2020-11-24] MEDS ORDERED: 0.9 % SODIUM CHLORIDE 1,000 ML IV SCH (07:30)
--- NOTE | 2020-11-24 09:10 | XRay Report ---
INDICATION: NG tube placement TECHNIQUE: Supine abdomen. COMPARISON: Previous plain film examination dated 11/24/2020 FINDINGS:Interval placement of an esophagogastric tube with its tip in the stomach. There is persisting gaseous gastric distention and dilated gas-filled small bowel IMPRESSION: Esophagogastric tube with its tip in the stomach Interpreted and Authenticated by: All Cormier 11/24/20
[2020-11-24] MEDS ORDERED: PROMETHAZINE 25 MG/ML VIAL IV PRN (09:50)
[2020-11-24] MEDS ORDERED: DEXTROSE 50% 50 ML VIAL IV PRN (10:02)
[2020-11-24] MEDS ORDERED: DEXTROSE 31 GM ORAL.SUSP PO PRN (10:02)
[2020-11-24] MEDS ORDERED: DIAZEPAM 10 MG/2 ML SYRINGE IV PRN (10:06)
[2020-11-24] MEDS: 0.9 % SODIUM CHLORIDE 1,000 ML IV SCH ×4 (10:13→22:36)
[2020-11-24 10:21] LABS: Blood Urea Nitrogen 22 mg/dL (6-20); Carbon Dioxide 31 mmol/L (22-30); Chloride 92 mmol/L (96-108); Glomerular Filtration Rate 62; Glucose 232 mg/dL (70-105)
--- NOTE | 2020-11-24 10:34 | General Surg History&Physical ---
HPI History of Present Illness Patient information: Note initiated : 11/24/20 at 10:20 am Service Date, if different from initiated Date: [] Patient: Dayanna Guo a 59 y/o F admitted on 11/24/20 for "Bowel Obstruction". Chief Complaint: [] Chief complaint: Small bowel obstruction History of present illness: Ms. Guo is a 59 year old F admitted for treatment of recurrent small bowel obstruction. The patient has a long history of recurrent intestinal pseudoobstruction and has had multiple admissions for pseudoobstruction or adhesive disease. She was last admitted on 07/12/2020 with complaints of crampy abdominal pain nausea vomiting and massively dilated stomach and small bowel. The patient is status post subtotal colectomy and has aN end ileostomy. She states that she has been feeling bloated for the last week but switched herself to liquids and was able to tolerate her symptoms until yesterday when she developed massive distention with bloating and nausea and vomiting. She had a small amount of output through her stoma with minimal amount of gas. She was seen in the emergency room earlier this morning and was noted to have a massively dilated stomach and small bowel without a transition point. Her electrolytes imbalance and she has positive lactic acid and leukocytosis. Patient is admitted for treatment. The plan will be to do nasogastric decompression, reinstitute Regonol therapy and add MiraLAX if we can stimulate some output through her stoma. Constitutional Constitutional: Present fatigue, lethargy, malaise, night sweats, weakness and weight loss EENT Eyes: Absent diplopia and pain Ears: Absent decreased hearing and tinnitus Nose, mouth and throat: Present dry mouth and dysphagia Cardiovascular Cardiovascular: Present lightheadedness, palpatations and rapid heart rate; Absent chest pain and dyspnea on exertion Respiratory Respiratory: Absent cough, dyspnea on exertion and wheezing Gastrointestinal Gastrointestinal: Present abdominal pain, belching, change in bowel habits, change in stool character, diarrhea, heartburn, loose stools, nausea and vomiting Genitourinary Genitourinary: Absent dysuria, hematuria and nocturia Musculoskeletal Musculoskeletal: Present arthralgias, muscle cramps, myalgias, numbness and tingling Integumentary Integumentary: Present alopecia and dry skin; Absent pruritus and swelling Neurological Neurological: Present dizziness, headache(s), numbness, restless legs, tingling and weakness; Absent abnormal gait Psychiatric Psychiatric: Present abnormal sleep pattern and depression Endocrine Endocrine: Absent polydipsia, polyphagia and polyuria Hematologic/Lymphatic Hematologic/Lymphatic: Absent easy bleeding, easy bruising and lymphadenopathy Allergic/Immunologic Allergic/Immunologic: Absent tongue swelling, throat swelling, itchy eyes, uticaria, wheezing and lip swelling PFSH PFSH All Active Problems (Updated 11/24/20 @ 10:32 by Bertha Currie MD) Diabetes mellitus (Acute) Acute UTI (Acute) Hypercalcemia (Acute) COVID-19 (Acute) Acute kidney injury (Acute) Hypercalcemia (Acute) Hyponatremia (Acute) Elevated serum creatinine (Acute) Low back pain (Acute) Partial small bowel obstruction (Acute) Nausea and vomiting (Acute) Hypokalemia (Acute) Hyponatremia (Acute) Elevated LFTs (Acute) Small bowel obstruction (Acute) Dehydration (Acute) Primary chronic pseudo-obstruction of small intestine (Acute) UTI (urinary tract infection) (Acute) Hypocalcemia (Acute) Nausea & vomiting (Acute) Severe sepsis (Acute) 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 (Acute) Chronic, continuous use of opioids (Chronic) Myasthenia gravis (Chronic) Chronic intestinal pseudo-obstruction (Chronic) Recurrent intestinal obstruction (Chronic) Diabetes mellitus type 2, uncontrolled (Chronic) LA (obstructive sleep apnea) (Chronic) Hypertension (Chronic) Obesity, Class II, BMI 35-39.9 (Chronic) Low blood magnesium level (Chronic) Abdominal pain (Chronic) Chronic use of steroids (Chronic) Abnormal liver enzymes (Chronic) Hypothyroidism (Chronic) Sarcoidosis (Chronic) Polyglandular autoimmune syndrome (Chronic) Recurrent abdominal pain (Chronic) Medical History Abdominal pain (Resolved) Abdominal pain (Chronic) Abdominal wound dehiscence (Resolved) Abnormal liver enzymes (Chronic) Achalasia and cardiospasm (Resolved) Acute respiratory insufficiency (Resolved) Adverse reaction to drug (Resolved) Anaphylaxis (Resolved) Bowel obstruction (Resolved) 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) Chronic use of steroids (Chronic) for myasthenia gravis; 10+ years Chronic, continuous use of opioids (Chronic) Constipation due to neurogenic bowel (Resolved) Constipation due to pain medication therapy (Resolved) Dehydration (Resolved) Dehydration (Resolved) Diabetes mellitus type 2, uncontrolled (Chronic) Encounter for care related to Port-a-Cath (Resolved) Fecal impaction (Resolved) Foot sprain (Resolved) Hypercalcemia (Resolved) Hypertension (Chronic) Hypocalcemia (Resolved) Hyponatremia (Resolved) Hypothyroidism (Chronic) Ileus (Resolved) Infiltrate of lung present on imaging of chest (Resolved) Intractable vomiting (Resolved) Lactic acid acidosis (Resolved) Low blood magnesium level (Chronic) Myasthenia gravis (Chronic) Nausea (Resolved) Nausea & vomiting (Resolved) Nausea & vomiting (Resolved) Nausea and vomiting (Resolved) Obesity, Class II, BMI 35-39.9 (Chronic) Obstruction of descending colon (Resolved) LA (obstructive sleep apnea) (Chronic) Pancreatitis (Resolved) Parastomal hernia with obstruction, without gangrene (Resolved) Partial intestinal obstruction, unspecified as to cause (Resolved) Partial small bowel obstruction (Resolved) Pneumonia (Resolved) 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) Pseudoobstruction of colon (Resolved) Pyelonephritis (Resolved) Recurrent abdominal pain (Chronic) Recurrent intestinal obstruction (Chronic) many recurrences; many surgical interventions Sarcoidosis (Chronic) Sepsis (Resolved) Sepsis associated hypotension (Resolved) Sepsis with acute hypoxic respiratory failure (Resolved) Severe sepsis (Resolved) Sigmoid volvulus (Resolved) Sinus tachycardia (Resolved) Sinus tachycardia (Resolved) Small bowel obstruction (Resolved) Small bowel obstruction (Resolved) Small bowel obstruction (Resolved) Small bowel obstruction (Resolved) Small bowel obstruction (Resolved) Small bowel obstruction (Resolved) Small bowel obstruction due to adhesions (Resolved) Small bowel obstruction due to postoperative adhesions (Resolved) Small bowel obstruction, partial (Resolved) Supraventricular tachycardia (Resolved) UTI (urinary tract infection) (Resolved) UTI (urinary tract infection) (Resolved) Volvulus of sigmoid colon (Resolved) Surgical History History of exploratory laparotomy (Acute) 10/17/2017-with adhesiolysis History of exploratory laparotomy (Acute) 12/01/2017-with adhesiolysis History of exploratory laparotomy (Acute) 07/18/2018 History of exploratory laparotomy (Acute) 08/10/2018-Exploratory laparotomy with small bowel adhesiolysis and incisional hernia repair with mesh graft S/P ileostomy (Resolved) Family History Father CAD (coronary artery disease) Mother CAD (coronary artery disease) Grandfather CVA (cerebral vascular accident) Grandmother CVA (cerebral vascular accident) Social History smoking status: Former smoker alcohol intake frequency: does not drink substance use type: does not use MEDS/ALLERGIES Home Medications and Allergies Home Medications Medication Instructions Recorded Confirmed Type duloxetine 30 mg PO BID 11/30/16 11/24/20 History levothyroxine 250 mcg PO QAMAC 08/20/17 11/24/20 History calcitriol See Rx Instructions .ROUTE .COMPLEX 02/11/19 11/24/20 History promethazine 25 mg PO Q6HP PRN #60 tab 02/13/19 11/24/20 Rx insulin glargine 10 unit SQ BID 09/30/19 11/24/20 History Accu-Chek 1 each FS ACHS strip 12/03/19 11/24/20 Rx cyclobenzaprine 10 mg PO BIDP PRN 12/13/19 11/24/20 History magnesium oxide 500 mg PO BID 12/13/19 11/24/20 History ondansetron 4 mg SL Q4HP PRN 12/24/19 11/24/20 History promethazine 25 mg MT Q6HP PRN 12/24/19 11/24/20 History pyridostigmine bromide 5 mg/mL 10 mg IM Q6H #240 ml 01/04/20 11/24/20 Rx injection solution metformin 500 mg PO BID 07/12/20 11/24/20 History syringe with needle 3 mL 25 gauge See Rx Instructions .ROUTE 08/31/20 11/24/20 Rx x 1" .COMPLEX #100 unspecified acetaminophen 500 mg PO Q6HP PRN 09/14/20 11/24/20 History gabapentin 300 mg PO BID 09/14/20 11/24/20 History prednisone 40 mg PO QAMCC 09/14/20 11/24/20 History filter needles 19 x 1 1/2" #100 each 10/19/20 11/24/20 Rx Allergies Allergy/AdvReac Type Severity Reaction Status Date / Time Sulfa (Sulfonamide Allergy Severe Anaphylaxis Verified 11/24/20 02:08 Antibiotics) adhesive tape AdvReac Mild Blister Verified 11/24/20 02:08 metoclopramide [From Reglan] AdvReac Mild Anxiety Verified 11/24/20 02:08 steri strips AdvReac Mild Blister Uncoded 12/02/19 06:48 Physical Examination Vital Signs Vital signs: Temp Pulse Resp BP Pulse Ox 98.1 F 120 H 20 99/70 95 11/24/20 09:28 11/24/20 09:28 11/24/20 09:28 11/24/20 09:28 11/24/20 09:28 General physical appearance General physical exam: well developed, well nourished, moderate distress, moderate pain, chronically ill and obese Eyes Eye exam: PERRL and normal ocular movement; negative pale and icteric ENT ENT exam: normal mucosa, no hearing loss, no congestion and nasal discharge Head Head exam IM: Present atraumatic, normal inspection and normocephalic Neck Neck exam: no masses, no bruits, trachea midline, no lymphadenopathy and no venous distension Cardiovascular Cardiovascular exam IM: Present +S1, +S2 and tachycardia; Absent JVD and RRR Respiratory Respiratory exam: normal expansion, normal respiratory effort, clear to percussion and clear to auscultation Abdomen Abdomen: Present tender, bowel sounds (Hyperactive bowel sounds), surgical scars (Healed midline surgical incision) and distended; Absent guarding Hernia: Present none Integumentary Integumentary: Present no rash, no growths and no abnormal pigmentation Neurologic Neurologic: Present normal coordination and normal sensation Musculoskeletal Musculoskeletal: Present normal gait and normal posture Psychiatric Psychiatric: Present oriented to time, oriented to person, oriented to place, speech is normal and memory intact Results Labs Result diagrams: 11/24/20 02:36 11/24/20 02:36 Labs: Abnormal lab results 11/24/20 11/24/20 11/24/20 Range/Units 02:36 02:36 02:36 WBC 12.1 H (4.5-11.0) K/mcL Real # (Auto) 1.05 H (0.10-0.90) K/mcL VBG Lactic Acid 5.0 H* (0.5-2.0) mmol/L Potassium 3.1 L (3.3-5.1) mmol/L Chloride 89 L (96-108) mmol/L BUN 23 H (6-20) mg/dL Glucose 265 H (70-105) mg/dL Calcium 7.8 L (8.6-10.4) mg/dL Alkaline Phosphatase 127 H (39-117) U/L Diabetes panel 11/24/20 Range/Units 02:36 Sodium 133 (133-145) mmol/L Potassium 3.1 L (3.3-5.1) mmol/L Chloride 89 L (96-108) mmol/L Carbon Dioxide 28 (22-30) mmol/L BUN 23 H (6-20) mg/dL Creatinine 1.1 (0.6-1.1) mg/dL Glucose 265 H (70-105) mg/dL Calcium 7.8 L (8.6-10.4) mg/dL AST 11 (<32) U/L ALT 18 (<40) U/L Alkaline Phosphatase 127 H (39-117) U/L Total Protein 6.6 (5.9-8.4) gm/dL Albumin 3.7 (3.2-5.2) gm/dL Calcium panel 11/24/20 Range/Units 02:36 Calcium 7.8 L (8.6-10.4) mg/dL Albumin 3.7 (3.2-5.2) gm/dL Pituitary panel 11/24/20 Range/Units 02:36 Sodium 133 (133-145) mmol/L Potassium 3.1 L (3.3-5.1) mmol/L Chloride 89 L (96-108) mmol/L Carbon Dioxide 28 (22-30) mmol/L BUN 23 H (6-20) mg/dL Creatinine 1.1 (0.6-1.1) mg/dL Glucose 265 H (70-105) mg/dL Calcium 7.8 L (8.6-10.4) mg/dL Adrenal panel 11/24/20 Range/Units 02:36 Sodium 133 (133-145) mmol/L Potassium 3.1 L (3.3-5.1) mmol/L Chloride 89 L (96-108) mmol/L Carbon Dioxide 28 (22-30) mmol/L BUN 23 H (6-20) mg/dL Creatinine 1.1 (0.6-1.1) mg/dL Glucose 265 H (70-105) mg/dL Calcium 7.8 L (8.6-10.4) mg/dL Total Bilirubin < 0.2 (0.1-1.0) mg/dL AST 11 (<32) U/L ALT 18 (<40) U/L Alkaline Phosphatase 127 H (39-117) U/L Total Protein 6.6 (5.9-8.4) gm/dL Albumin 3.7 (3.2-5.2) gm/dL All other labs normal. A/P Assessment and plan (1) Small bowel obstruction: Status: Acute (2) Dehydration: Status: Acute (3) Nausea & vomiting: Status: Acute Qualifiers: Vomiting Intractability: non-intractable Vomiting type: unspecified Qualified Code(s): R11.2 - Nausea with vomiting, unspecified (4) Elevated serum creatinine: Status: Acute (5) Hypokalemia: Status: Acute (6) Primary chronic pseudo-obstruction of small intestine: Status: Acute (7) Myasthenia gravis: Status: Chronic (8) LA (obstructive sleep apnea): Status: Chronic (9) Hypertension: Status: Chronic Qualifiers: Hypertension type: essential hypertension Qualified Code(s): I10 - Essential (primary) hypertension (10) Obesity, Class II, BMI 35-39.9: Status: Chronic (11) Polyglandular autoimmune syndrome: Status: Chronic (12) Diabetes mellitus: Status: Acute Qualifiers: Diabetes mellitus type: type 2 Diabetes mellitus correction insulin use: with correction use Diabetes mellitus complication status: without complication Qualified Code(s): E11.9 - Type 2 diabetes mellitus without complications; Z79.4 - retirement (current) use of insulin Narrative A/P Narrative: Nasogastric decompression IV normal saline hydration Reinstitute Regonol therapy Sliding scale insulin coverage Supplemental oxygen at night as needed Switch hydrocortisone to IV Diazepam for muscle spasm and twitching Replace potassium IV Monitor renal status closely Follow-up abdominal x-rays daily Time Spent With Patient Time: Total time spent is greater than 50% in coordination of care (as documented) at patient's floor/unit and/or counseling patient:
[2020-11-24] MEDS: INSULIN LISPRO 1 UNIT/0.01 ML UNIT SQ SCH ×3 (11:57→20:54)
[2020-11-24] MEDS: PYRIDOSTIGMINE BROMIDE 10 MG/2 ML ML IM SCH ×3 (12:36→23:46)
[2020-11-24] MEDS: BENZOCAINE 1 SPRAY BOTTLE TOPICAL PRN ×3 (19:18→23:45)
[2020-11-24] MEDS: methylPREDNISolone SOD SUCC 125 MG/2 ML VIAL IV SCH (20:48)
[2020-11-25] MEDS: BENZOCAINE 1 SPRAY BOTTLE TOPICAL PRN ×2 (02:34→05:25)
[2020-11-25] MEDS: HYDROmorphone 0.5 MG/0.5 ML SYRINGE IV PRN ×7 (02:35→19:45)
[2020-11-25] MEDS: 0.9 % SODIUM CHLORIDE 1,000 ML IV SCH ×4 (05:25→21:31)
[2020-11-25] MEDS: PYRIDOSTIGMINE BROMIDE 10 MG/2 ML ML IM SCH ×4 (05:27→23:38)
[2020-11-25 06:31] LABS: Basophils # (Auto) 0.01 K/mcL (0.00-0.20); Basophils % (Auto) 0.1 % (0.0-2.0); Eosinophils # (Auto) 0 K/mcL (0.00-0.70); Eosinophils % (Auto) 0 % (0.0-7.0); Hematocrit 37.4 % (36.0-48.0); Hemoglobin 12.1 g/dL (12.0-15.0); Lymphocytes # (Auto) 0.52 K/mcL (1.50-4.80); Lymphocytes % (Auto) 4.2 % (15.0-49.0); Mean Cell Volume 90.8 fL (80.0-100.0); Mean Corpuscular HGB Conc 32.4 g/dL (31.0-36.0); Mean Platelet Volume 9.1 fL (7.4-10.4); Monocytes # (Auto) 0.17 K/mcL (0.10-0.90); Monocytes % (Auto) 1.4 % (1.0-12.0); Neutrophils % (Auto) 94.3 % (38.0-78.0); Platelet Count 245 K/mcL (140-440); RBC 4.12 M/mcL (4.00-5.20); Red Cell Distribution Width 14.3 % (11.5-14.5); WBC 12.5 K/mcL (4.5-11.0)
--- NOTE | 2020-11-25 07:27 | XRay Report ---
INDICATION: Small bowel obstruction TECHNIQUE: Supine and upright abdomen. COMPARISON: Most recent previous examinations dated 11/24/2020 FINDINGS:No change in esophagogastric tube within the stomach. Resolution of gaseous gastric distention. There is distended gas filled small bowel. This is improved. Overall pattern is improved since 11/24/2020. There is no pneumoperitoneum. No biliary or portal venous gas IMPRESSION: Improved bowel gas pattern Interpreted and Authenticated by: All Cormier 11/25/20
[2020-11-25 07:29] LABS: ALT/SGPT 14 U/L (<40); AST/SGOT 15 U/L (<32); Albumin 2.7 gm/dL (3.2-5.2); Albumin/Globulin Ratio 1.2 (1.0-2.3); Alkaline Phosphatase 98 U/L (39-117); Bilirubin,Direct < 0.2 mg/dL (<0.3); Bilirubin,Total < 0.2 mg/dL (0.1-1.0); Blood Urea Nitrogen 19 mg/dL (6-20); Calcium 5.9 mg/dL (8.6-10.4); Carbon Dioxide 31 mmol/L (22-30); Chloride 99 mmol/L (96-108); Globulin 2.3 gm/dL (2.2-3.7); Glomerular Filtration Rate 62; Glucose 176 mg/dL (70-105); Lactate Dehydrogenase 271 U/L (135-225); Phosphorous 3.4 mg/dL (2.5-4.5); Triglycerides 290 mg/dL (<150); Uric Acid 4.2 mg/dL (2.5-8.0)
[2020-11-25] MEDS: INSULIN LISPRO 1 UNIT/0.01 ML UNIT SQ SCH ×4 (07:32→20:39)
[2020-11-25] MEDS: methylPREDNISolone SOD SUCC 125 MG/2 ML VIAL IV SCH ×2 (08:48→20:39)
[2020-11-25] MEDS ORDERED: CALCIUM GLUCONATE 4.65 MEQ/10 ML VIAL IV ONE (09:43)
[2020-11-25] MEDS: CALCIUM GLUCONATE 9.3 MEQ in DEXTROSE 5% IN WATER 50 ML IV SCH ×3 (10:12→17:30)
[2020-11-25] MEDS ORDERED: CYCLOBENZAPRINE 10 MG TABLET PO PRN (11:11)
[2020-11-25] MEDS ORDERED: ONDANSETRON 4 MG ODT TABLET SL PRN (11:18)
--- NOTE | 2020-11-25 11:21 | General Surgery Progress Note ---
SUBJECTIVE Subjective Patient information: Note initiated : 11/25/20 at 11:16 am Service Date, if different from initiated Date: [] Patient: Dayanna Guo 59 y/o F admitted on 11/24/20 for "Bowel Obstruction". Chief Complaint: [] Principal diagnosis: .Patient states that she feels better she has continued to have gas and thick inspissated stool output through her stoma overnight. She has a decompressed stomach and has been started on a small bowel follow-through. This shows fairly rapid transit through the small bowel. Constitutional Vitals: Vital Signs Temp Pulse Resp BP Pulse Ox 97 F 92 H 16 111/66 98 11/25/20 06:46 11/25/20 06:46 11/25/20 06:46 11/25/20 06:46 11/25/20 06:46 Period Temp Pulse Resp BP Sys/Archuleta Pulse Ox Last 24 Hr 97 F-98.4 F 92-117 16-20 97-133/52-82 90-98 Intake and Output 11/24/20 11/25/20 11/25/20 21:59 05:59 13:59 Intake Total 440 2042 Output Total 2450 950 450 Balance -2009 1092 -450 Weight 239 lb 12.8 oz Intake & Output: Intake & Output 11/24/20 11/25/20 11/25/20 21:59 05:59 13:59 Intake Total 440 2042 Output Total 2450 950 450 Balance -2009 1092 -450 Weight 239 lb 12.8 oz Intake: IV 1942 Sodium Chloride 0.9% 1,000 ml @ 1942 150 mls/hr IV .Q6H40M [facility] Rx#: [id number] Oral 200 100 GI Tube Flush 240 Output: Gastric Drainage 2049 950 Left Nare NG/OG 2049 950 Void Amount 400 300 Stool 150 Other: Meal Breakfast Percent of Meal Consumed NPO Urine Appearance Clear Clear Urine Color Dark Yellow Dark Yellow Urine Odor Strong Stool Color Brown Head Head exam: Present atraumatic, normal inspection and normocephalic Eye Eye exam: Present EOMI and normal appearance Pupils: Present normal accommodation and PERRL ENT ENT exam: Present normal exam and normal oropharynx Neck Neck exam: Present full ROM; Absent tenderness Respiratory Respiratory exam: Present normal respiratory exam and CTAB; Absent rales, rhonchi and wheezes Cardiovascular Cardiovascular exam: Present RRR, +S1, +S2 and tachycardia; Absent JVD GI/Abdominal GI/Abdominal exam: Present normal bowel sounds, soft and distended (abdomen is less distended than on yesterday) Extremities Exam Extremities exam: Present normal capillary refill and neurovascular intact; Absent calf tenderness and pedal edema Neurological Exam Neurological exam: Present alert, CN II-XII intact, normal gait, oriented X3 and reflexes normal Psychiatric Psychiatric exam: Present anxious, normal affect and normal mood A/P Assessment and plan (1) Small bowel obstruction: Status: Acute (2) Primary chronic pseudo-obstruction of small intestine: Status: Acute (3) Hypocalcemia: Status: Acute (4) Diabetes mellitus: Status: Acute Qualifiers: Diabetes mellitus type: type 2 Diabetes mellitus mcc insulin use: with mcc use Diabetes mellitus complication status: without complication Qualified Code(s): E11.9 - Type 2 diabetes mellitus without complications; Z79.4 - penitentiary (current) use of insulin Narrative A/P Narrative: Continue with small bowel follow-through Probable discontinue nasogastric tube later today and start clear liquids Follow-up abdominal x-ray in the morning Time Spent With Patient Time: Total time spent is greater than 50% in coordination of care (as documented) at patient's floor/unit and/or counseling patient:
[2020-11-25] MEDS: POLYETHYLENE GLYCOL 3350 17 GM PACKET PO SCH ×5 (11:44→23:37)
[2020-11-25] MEDS ORDERED: DIATRIZOATE MEGLU/DIATRIZO SOD 30 ML BOTTLE PO ONE (12:36)
--- NOTE | 2020-11-25 12:54 | XRay Report ---
INDICATION: r/o bowel obstruction; use ng tube for the contras TECHNIQUE: Dilute Gastrografin mixture was given through the patient's NG tube. Imaging to 3 hours post ingestion performed. COMPARISON: Multiple prior small bowel studies FINDINGS: There is generalized dilatation of small bowel. There is no high-grade mechanical small bowel obstruction. Contrast material present within the ileostomy bag by 3 hours postingestion. IMPRESSION: 1. Dilated small bowel 2. Contrast material is in the ileostomy bag by 3 hours postingestion Interpreted and Authenticated by: All Cormier 11/25/20
[2020-11-25] MEDS: GABAPENTIN 300 MG CAPSULE PO SCH (20:39)
[2020-11-25] MEDS: DULoxetine 30 MG CAPSULE PO SCH (20:39)
[2020-11-25] MEDS: MAGNESIUM OXIDE 400 MG TABLET PO SCH (20:39)
[2020-11-26] MEDS: HYDROmorphone 0.5 MG/0.5 ML SYRINGE IV PRN ×4 (01:49→12:10)
[2020-11-26] MEDS: 0.9 % SODIUM CHLORIDE 1,000 ML IV SCH ×3 (04:38→15:44)
[2020-11-26] MEDS: POLYETHYLENE GLYCOL 3350 17 GM PACKET PO SCH ×2 (05:56→12:09)
[2020-11-26] MEDS: PYRIDOSTIGMINE BROMIDE 10 MG/2 ML ML IM SCH (05:56)
[2020-11-26 06:49] LABS: Basophils # (Auto) 0.01 K/mcL (0.00-0.20); Basophils % (Auto) 0.1 % (0.0-2.0); Eosinophils # (Auto) 0 K/mcL (0.00-0.70); Eosinophils % (Auto) 0 % (0.0-7.0); Hemoglobin 11.2 g/dL (12.0-15.0); Lymphocytes # (Auto) 0.55 K/mcL (1.50-4.80); Lymphocytes % (Auto) 6.8 % (15.0-49.0); Mean Cell Volume 90.2 fL (80.0-100.0); Mean Corpuscular HGB Conc 32.9 g/dL (31.0-36.0); Mean Platelet Volume 9.3 fL (7.4-10.4); Monocytes # (Auto) 0.28 K/mcL (0.10-0.90); Monocytes % (Auto) 3.5 % (1.0-12.0); Neutrophils % (Auto) 89.6 % (38.0-78.0); Platelet Count 255 K/mcL (140-440); RBC 3.77 M/mcL (4.00-5.20); Red Cell Distribution Width 14.2 % (11.5-14.5)
[2020-11-26] MEDS ORDERED: LEVOTHYROXINE 125 MCG TABLET PO SCH (07:30)
[2020-11-26 07:31] LABS: ALT/SGPT 14 U/L (<40); AST/SGOT 16 U/L (<32); Albumin 2.7 gm/dL (3.2-5.2); Albumin/Globulin Ratio 1.3 (1.0-2.3); Alkaline Phosphatase 83 U/L (39-117); Bilirubin,Direct < 0.2 mg/dL (<0.3); Bilirubin,Total < 0.2 mg/dL (0.1-1.0); Blood Urea Nitrogen 10 mg/dL (6-20); Calcium 7.1 mg/dL (8.6-10.4); Carbon Dioxide 30 mmol/L (22-30); Chloride 97 mmol/L (96-108); Globulin 2.1 gm/dL (2.2-3.7); Glomerular Filtration Rate 81; Glucose 184 mg/dL (70-105); Lactate Dehydrogenase 267 U/L (135-225); Phosphorous 2.8 mg/dL (2.5-4.5); Triglycerides 146 mg/dL (<150); Uric Acid 3.5 mg/dL (2.5-8.0)
--- NOTE | 2020-11-26 08:24 | XRay Report ---
INDICATION: Small bowel obstruction TECHNIQUE: Supine and upright abdomen. COMPARISON: Previous examinations dated 11/25/2020 and 11/24/2020 FINDINGS:Almost all of the contrast material is been eliminated. Bowel gas pattern is markedly improved. There is mild residual dilatation. No pneumoperitoneum. No biliary or portal venous gas. IMPRESSION: Improved bowel gas pattern Interpreted and Authenticated by: All Cormier 11/26/20
[2020-11-26] MEDS: INSULIN LISPRO 1 UNIT/0.01 ML UNIT SQ SCH ×2 (08:40→12:09)
[2020-11-26] MEDS: DULoxetine 30 MG CAPSULE PO SCH (08:40)
[2020-11-26] MEDS: MAGNESIUM OXIDE 400 MG TABLET PO SCH (08:40)
[2020-11-26] MEDS: methylPREDNISolone SOD SUCC 125 MG/2 ML VIAL IV SCH (08:41)
[2020-11-26] MEDS: GABAPENTIN 300 MG CAPSULE PO SCH (08:41)
[2020-11-26] MEDS ORDERED: CALCIUM GLUCONATE 9.3 MEQ in DEXTROSE 5% IN WATER 50 ML IV SCH (09:00)
--- NOTE | 2020-11-26 09:54 | General Surgery Progress Note ---
SUBJECTIVE Subjective Patient information: Note initiated : 11/26/20 at 9:51 am Service Date, if different from initiated Date: [] Patient: Dayanna Guo 59 y/o F admitted on 11/24/20 for "Bowel Obstruction". Chief Complaint: Patient admitted with chronic pseudoobstruction of the small bowel, underwent small bowel follow-through yesterday which showed transit to ileostomy bag and under 3 hours. NG tube was removed last night and started on clear liquid diet which she is tolerating without difficulty. She denies any nausea vomiting fevers or chills at this time. She reports that she is finally hungry again and desires regular diet. Principal diagnosis: .Patient states that she feels better she has continued to have gas and thick inspissated stool output through her stoma overnight. She has a decompressed stomach and has been started on a small bowel follow-through. This shows fairly rapid transit through the small bowel. Constitutional Vitals: Vital Signs Temp Pulse Resp BP Pulse Ox 98.2 F 83 16 113/66 96 11/26/20 07:53 11/26/20 07:09 11/26/20 07:09 11/26/20 07:09 11/26/20 07:09 Period Temp Pulse Resp BP Sys/Archuleta Pulse Ox Last 24 Hr 95.6 F-98.7 F 74-90 16-18 104-125/60-81 91-99 Intake and Output 11/25/20 11/26/20 11/26/20 21:59 05:59 13:59 Intake Total 3030 1270 120 Output Total 1949 1874 100 Balance 1080 -605 20 Weight 248 lb 4.8 oz Intake & Output: Intake & Output 11/25/20 11/26/20 11/26/20 21:59 05:59 13:59 Intake Total 3030 1270 120 Output Total 1949 1874 100 Balance 1080 -605 20 Weight 248 lb 4.8 oz Intake: Nourishment/Supplement quantity 520 (ml) IV 1070 1070 Sodium Chloride 0.9% 1,000 ml @ 1000 1000 150 mls/hr IV .Q6H40M [facility] Rx#: [id number] Calcium Gluconate 9.3 Meq In 70 70 Dextrose 5% in Water 50 ml @ 100 mls/hr IV Q4H [facility] Rx#: [id number] Oral 1440 200 120 Output: Void Amount 1375 Stool 1950 500 100 Other: Meal Jello Percent of Meal Consumed 100% Feeding Ability Independent Urine Appearance Clear Urine Color Bright Yellow Urine Odor Strong Stool Size Moderate Stool Color Jaren Colored Brown Pale Stool Consistency Liquid Watery # of times incontinent of 1 Bowels General appearance: no acute distress GI/Abdominal GI/Abdominal exam: Present normal bowel sounds and soft; Absent distended and tenderness A/P Narrative A/P Narrative: Hospital day #2 for partial small bowel obstruction, obstruction seems to be resolved, good stool in ostomy bag. Advance diet as tolerated, if tolerates regular diet today will discuss discharge later today. Time Spent With Patient Time: Total time spent is greater than 50% in coordination of care (as documented) at patient's floor/unit and/or counseling patient:
[2020-11-26] MEDS ORDERED: PYRIDOSTIGMINE 60 MG TABLET PO SCH (15:00)
--- NOTE | 2020-11-26 15:06 | Discharge Summary ---
Discharge Provider Provider Patient information: Note initiated : 11/26/20 at 3:04 pm Service Date, if different from initiated Date: [] Patient: Dayanna Guo 59 y/o F admitted on 11/24/20 for "Bowel Obstruction". Chief Complaint: [sbo, now resolved] Date of admission: 11/24/20 09:21 Discharge date: 11/26/20 Primary care physician: Douglas Haque Consults: 11/24/20 Consult to Physician [CONS] Stat Comment: Consulting Provider: Bertha Currie Reason For Exam: Physician to Consult COURSE Hospital Course Hospital course: sbo resolved spontaneously Discharge diagnosis: sbo, resolved Time Spent with Patient Time attestation: Total time spent providing and/or coordinating discharge services: Physical Examination Vital Signs Vital signs: Temp Pulse Resp BP Pulse Ox 97.7 F 98 H 18 135/85 96 11/26/20 12:00 11/26/20 12:00 11/26/20 12:00 11/26/20 12:00 11/26/20 12:00 General physical appearance General physical exam: well developed and no distress Abdomen Abdomen: Present soft, non tender and bowel sounds; Absent guarding Discharge Plan Patient/Caregiver Discharge Instructions Activity: increase activity as tolerated Diet: Regular Diet Prescriptions: No Action pyridostigmine bromide 5 mg/mL solution 10 mg IM Q6H Qty: 240 RF: 5 syringe with needle [BD Luer-Archie Syringe] 3 mL 25 gauge x 1" syringe See Rx Instructions .ROUTE .COMPLEX Qty: 100 RF: 4 (DME) filter needles 19 x 1 1/2" 19 x 1 1/2 " needle See Rx Instructions .ROUTE .MEDSUPPLY Qty: 100 RF: 1 promethazine 25 mg tablet 25 mg PO Q6HP PRN (Reason: Nausea) Qty: 60 RF: 3 duloxetine 30 MG capsule 30 mg PO BID RF: 0 levothyroxine 125 MCG tablet 250 mcg PO QAMAC RF: 0 calcitriol 0.25 MCG capsule See Rx Instructions .ROUTE .COMPLEX RF: 0 insulin glargine 1 UNIT/0.01 ML unit 10 unit SQ BID RF: 0 Accu-Chek 1 EACH strip 1 each FS ACHS RF: 0 cyclobenzaprine 10 MG tablet 10 mg PO BIDP PRN (Reason: Spasms) RF: 0 magnesium oxide 250 MG tablet 500 mg PO BID RF: 0 promethazine 25 MG suppository 25 mg IA Q6HP PRN (Reason: nausea vomitting) RF: 0 ondansetron 4 MG tablet 4 mg SL Q4HP PRN (Reason: Nausea) RF: 0 metformin 500 MG tablet 500 mg PO BID RF: 0 acetaminophen 325 MG tablet 500 mg PO Q6HP PRN (Reason: Pain/Fever > 101) RF: 0 prednisone 20 MG tablet 40 mg PO QAC RF: 0 gabapentin 300 mg capsule 300 mg PO BID RF: 0 Follow Up Plan Follow up with: Douglas Haque MD [Primary Care Provider] - Patient Disposition: Home, Self-Care Hospital Course: sbo resolved spontaneously Assessment: small bowel obstruction, resolved Prognosis: Good Rehab Potential: Good I certify that the patient requires SNF services: No Overall status at discharge: patient is back to baseline Discharge Orders: Discharge Order (Routine); Ordered 11/26/20 Ordered By: Calvin Sadler Pending Pending Pending: Resuscitation Status Full Code Diet Regular Diet Start Sat Nov 26 0950 Benzocaine (Cetacaine) 1 spray TOPICAL PRN PRN PRN Reason: Sore Throat Last Admin: 11/25/20 05:25 Dose: 1 spray Documented by: Admin: 11/25/20 02:34 Dose: 1 spray Documented by: Admin: 11/24/20 23:45 Dose: 1 spray Documented by: Admin: 11/24/20 21:51 Dose: 1 spray Documented by: Admin: 11/24/20 19:18 Dose: 1 spray Documented by: ETHAN Cyclobenzaprine HCl (Flexeril) 10 mg PO TIDP PRN PRN Reason: Muscle Spasm Last Admin: 11/25/20 23:37 Dose: 10 mg Documented by: DMITRIY Diagnostic Test (Pha) (Accu-Chek) 1 each FS ACHS MALENA Last Admin: 11/26/20 12:09 Dose: 1 each Documented by: Admin: 11/26/20 08:40 Dose: 1 each Documented by: Admin: 11/25/20 20:40 Dose: 1 each Documented by: Admin: 11/25/20 17:10 Dose: 1 each Documented by: Admin: 11/25/20 11:21 Dose: 1 each Documented by: Admin: 11/25/20 07:27 Dose: 1 each Documented by: Admin: 11/24/20 20:53 Dose: 1 each Documented by: Admin: 11/24/20 16:26 Dose: Not Given Documented by: Admin: 11/24/20 11:55 Dose: 1 each Documented by: GUSTAVO Duloxetine HCl (Cymbalta) 30 mg PO BID [facility] Last Admin: 11/26/20 08:40 Dose: 30 mg Documented by: Admin: 11/25/20 20:39 Dose: 30 mg Documented by: DMITRIY Gabapentin (Neurontin) 300 mg PO BID [facility] Admin: 11/26/20 08:41 Dose: 300 mg Documented by: Admin: 11/25/20 20:39 Dose: 300 mg Documented by: DMITRIY Hydromorphone HCl (Dilaudid) 0.5 mg IV Q2HP PRN; Protocol PRN Reason: Per Pain Protocol Last Admin: 11/26/20 12:10 Dose: 0.5 mg Documented by: Admin: 11/26/20 08:42 Dose: 0.5 mg Documented by: Admin: 11/26/20 04:43 Dose: 0.5 mg Documented by: Admin: 11/26/20 01:49 Dose: 0.5 mg Documented by: Admin: 11/25/20 19:45 Dose: 0.5 mg Documented by: Admin: 11/25/20 17:08 Dose: 0.5 mg Documented by: Admin: 11/25/20 15:11 Dose: 0.5 mg Documented by: Admin: 11/25/20 12:12 Dose: 0.5 mg Documented by: Admin: 11/25/20 08:51 Dose: 0.5 mg Documented by: Admin: 11/25/20 05:26 Dose: 0.5 mg Documented by: Admin: 11/25/20 02:35 Dose: 0.5 mg Documented by: Admin: 11/24/20 23:57 Dose: 0.5 mg Documented by: Admin: 11/24/20 21:51 Dose: 0.5 mg Documented by: Admin: 11/24/20 19:20 Dose: 0.5 mg Documented by: Admin: 11/24/20 16:45 Dose: 0.5 mg Documented by: Admin: 11/24/20 14:11 Dose: 0.5 mg Documented by: Admin: 11/24/20 10:42 Dose: 0.5 mg Documented by: RAINAORGAN Sodium Chloride (Sodium Chloride 0.9%) 1,000 mls @ 150 mls/hr IV .Q6H40M [facility] Last Admin: 11/26/20 08:41 Dose: Not Given Documented by: JENNIFERHALStalin Admin: 11/26/20 04:38 Dose: 150 mls/hr Documented by: Infusion: 11/26/20 04:12 Dose: 150 mls/hr Documented by: Admin: 11/25/20 21:31 Dose: 150 mls/hr Documented by: Infusion: 11/25/20 20:22 Dose: 150 mls/hr Documented by: Admin: 11/25/20 13:41 Dose: 150 mls/hr Documented by: Admin: 11/25/20 12:59 Dose: Not Given Documented by: Infusion: 11/25/20 12:06 Dose: 150 mls/hr Documented by: Admin: 11/25/20 05:25 Dose: 150 mls/hr Documented by: Infusion: 11/25/20 05:17 Dose: 150 mls/hr Documented by: Admin: 11/24/20 22:36 Dose: 150 mls/hr Documented by: Infusion: 11/24/20 22:36 Dose: 150 mls/hr Documented by: Admin: 11/24/20 16:19 Dose: 150 mls/hr Documented by: Admin: 11/24/20 10:13 Dose: Not Given Documented by: RAINAORGAN Calcium Gluconate 9.3 meq/ (Dextrose) 70 mls @ 100 mls/hr IV DAILY [facility] Last Infusion: 11/26/20 09:23 Dose: 0 mls/hr Documented by: Admin: 11/26/20 08:41 Dose: 100 mls/hr Documented by: RAGHU Insulin Human Lispro (Humalog) 0 unit SQ ACHS [facility]; Protocol Last Admin: 11/26/20 12:09 Dose: 4 units Documented by: Admin: 11/26/20 08:40 Dose: 4 units Documented by: Admin: 11/25/20 20:39 Dose: Not Given Documented by: Admin: 11/25/20 17:08 Dose: 6 units Documented by: Admin: 11/25/20 11:22 Dose: 2 units Documented by: Admin: 11/25/20 07:32 Dose: 4 units Documented by: Admin: 11/24/20 20:54 Dose: Not Given Documented by: Admin: 11/24/20 16:43 Dose: 2 units Documented by: Admin: 11/24/20 11:57 Dose: Not Given Documented by: GUSTAVO Levothyroxine Sodium (Synthroid) 250 mcg PO QAMAC [facility] Last Admin: 11/26/20 08:41 Dose: 250 mcg Documented by: RAGHU Magnesium Oxide (Magnesium Oxide) 400 mg PO BID [facility] Last Admin: 11/26/20 08:40 Dose: 400 mg Documented by: Admin: 11/25/20 20:39 Dose: 400 mg Documented by: DMITRIY Methylprednisolone Sodium Succinate (Solu-Medrol) 62.5 mg IV Q12 [facility] Last Admin: 11/26/20 08:41 Dose: 62.5 mg Documented by: Admin: 11/25/20 20:39 Dose: 62.5 mg Documented by: Admin: 11/25/20 08:48 Dose: 62.5 mg Documented by: Admin: 11/24/20 20:48 Dose: 62.5 mg Documented by: ETHAN Polyethylene Glycol (Miralax) 17 gm PO Q6H [facility] Last Admin: 11/26/20 12:09 Dose: 17 gm Documented by: Admin: 11/26/20 05:56 Dose: 17 gm Documented by: STEVEN Promethazine HCl (Phenergan) 12.5 mg IV Q4HP PRN; Protocol PRN Reason: Nausea/Vomiting Last Admin: 11/24/20 14:24 Dose: 12.5 mg Documented by: GUSTAVO Shift Summary 11/26/20 05:15 Shift Summary by Merry Black AOX4. Up with SBA to BSC. VSS on RA. Clear liquid diet. Has ileolostomy. Antifungal powder to under breast/abdominal fold/groin. Ca gluconate X 3 yesterday for Ca 5.9, now daily. ACHS. NS @ 150 to portacath left chest. dil uadid 0.5mg Q2H PRN. Will update at bedside. Initialized on 11/26/20 05:15 - END OF NOTE
[2020-11-26] MEDS ORDERED: HEPARIN SODIUM,PORCINE/PF 500 UNIT/5 ML SYRINGE IV ONE ×2 (15:38→15:46)
== END 2020-11-26 16:24 | disposition home or self-care (01) | DRG 390 ==
LOC: ED 02:07 → MEDSUR 09:21
PROVIDERS: ADMIT Family Medicine Adult Medicine; ATTEND Family Medicine Adult Medicine

== ENCOUNTER 2020-11-27 14:38 | Inpatient (IN) ==
[2020-11-27] MEDS ORDERED: ONDANSETRON 4 MG/2 ML VIAL IV ONE (14:56)
[2020-11-27] MEDS ORDERED: 0.9 % SODIUM CHLORIDE 1,000 ML IV ONE ×2 (14:56→16:17)
[2020-11-27] MEDS: HYDROmorphone 0.5 MG/0.5 ML SYRINGE IV PRN ×6 (15:05→22:09)
[2020-11-27 15:43] LABS: Basophils # (Auto) 0.01 K/mcL (0.00-0.20); Basophils % (Auto) 0.1 % (0.0-2.0); Eosinophils # (Auto) 0.33 K/mcL (0.00-0.70); Eosinophils % (Auto) 3.2 % (0.0-7.0); Hematocrit 42.1 % (36.0-48.0); Hemoglobin 13.3 g/dL (12.0-15.0); Lymphocytes # (Auto) 2.34 K/mcL (1.50-4.80); Lymphocytes % (Auto) 22.5 % (15.0-49.0); Mean Cell Volume 92.1 fL (80.0-100.0); Mean Corpuscular HGB Conc 31.6 g/dL (31.0-36.0); Mean Platelet Volume 9.1 fL (7.4-10.4); Monocytes # (Auto) 0.82 K/mcL (0.10-0.90); Monocytes % (Auto) 7.9 % (1.0-12.0); Neutrophils % (Auto) 66.3 % (38.0-78.0); Platelet Count 282 K/mcL (140-440); RBC 4.57 M/mcL (4.00-5.20); Red Cell Distribution Width 14.4 % (11.5-14.5); WBC 10.4 K/mcL (4.5-11.0)
[2020-11-27] MEDS ORDERED: PROMETHAZINE 25 MG/ML VIAL IV ONE ×2 (15:51→18:50)
--- NOTE | 2020-11-27 15:57 | XRay Report ---
INDICATION: hx obstruction. pain and n/v TECHNIQUE: Supine abdomen. COMPARISON: Previous examinations dated 11/26/2020, 11/25/2020. FINDINGS:There is gaseous gastric distention, unchanged from initial examinations dated 11/24/2020. There is gas-filled small intestine with distention. Appearance is consistent with recurrent obstruction. There is no biliary or portal venous gas. An upright film was not obtained IMPRESSION: 1. Recurrent obstructive bowel gas pattern 2. Bowel gas pattern is similar to 11/24/2020 Interpreted and Authenticated by: All Cormier 11/27/20
[2020-11-27 16:38] LABS: ALT/SGPT 18 U/L (<40); AST/SGOT 18 U/L (<32); Albumin/Globulin Ratio 1.1 (1.0-2.3); Alkaline Phosphatase 94 U/L (39-117); Bilirubin,Total < 0.2 mg/dL (0.1-1.0); Blood Urea Nitrogen 15 mg/dL (6-20); Calcium 7.2 mg/dL (8.6-10.4); Carbon Dioxide 27 mmol/L (22-30); Chloride 97 mmol/L (96-108); Globulin 2.7 gm/dL (2.2-3.7); Glomerular Filtration Rate 70; Glucose 183 mg/dL (70-105)
[2020-11-27] MEDS ORDERED: PROMETHAZINE 25 MG/ML VIAL IM PRN (20:47)
--- NOTE | 2020-11-27 20:47 | Emergency Department Note ---
Abdominal Pain HPI General Chief Complaint: Abdominal Pain Stated Complaint: abdominal pain Time Seen by Provider: 11/27/20 14:56 Source: EMS Mode of arrival: EMS Limitations: no limitations History of Present Illness HPI Narrative: Narrative: 59-year-old female presents with abdominal pain and intractable nausea and vomiting. She was just discharged yesterday from the hospital after being admitted to Dr. Sadler with a small bowel obstruction. She has recurrent bowel obstructions. States she did have some output out of her ostomy today and change delivers bag, cleaned up, and has had no output since this morning. States pain just started late this morning and she cannot stop vomiting and does not know what else to do. Nursing staff does report that yesterday prior to discharge she ate 2 large meals and that every time she eats meals instead of being on fluids for a few days after obstruction that this always happens and she ends up back here. Patient agrees that that is probably what happened. S tates she cannot manage the pain at home and nothing she does at home will help the vomiting either. No fever or chills. No dysuria or frequency. Nothing seems to make the pain better or worse get better or worse it is just all constant. Related Data Home Medications Medication Instructions Recorded Confirmed duloxetine 30 mg PO BID 11/30/16 11/27/20 levothyroxine 250 mcg PO QAMAC 08/20/17 11/27/20 calcitriol See Rx Instructions .ROUTE .COMPLEX 02/11/19 11/27/20 insulin glargine 10 unit SQ BID 09/30/19 11/27/20 cyclobenzaprine 10 mg PO BIDP PRN 12/13/19 11/27/20 magnesium oxide 500 mg PO BID 12/13/19 11/27/20 ondansetron 4 mg SL Q4HP PRN 12/24/19 11/27/20 promethazine 25 mg OK Q6HP PRN 12/24/19 11/27/20 metformin 500 mg PO BID 07/12/20 11/27/20 acetaminophen 500 mg PO Q6HP PRN 09/14/20 11/27/20 gabapentin 300 mg PO BID 09/14/20 11/27/20 prednisone 40 mg PO QAMCC 09/14/20 11/27/20 Previous Rx's Medication Instructions Recorded Accu-Chek 1 each FS ACHS strip 12/03/19 pyridostigmine bromide 5 mg/mL 10 mg IM Q6H #240 ml 01/04/20 injection solution syringe with needle 3 mL 25 gauge See Rx Instructions .ROUTE 08/31/20 x 1" .COMPLEX #100 unspecified filter needles 19 x 1 1/2" #100 each 10/19/20 promethazine 25 mg tablet 25 mg PO Q6HP PRN #60 tab 11/24/20 Allergies Allergy/AdvReac Type Severity Reaction Status Date / Time Sulfa (Sulfonamide Allergy Severe Anaphylaxis Verified 11/27/20 14:45 Antibiotics) adhesive tape AdvReac Mild Blister Verified 11/27/20 14:45 metoclopramide [From Reglan] AdvReac Mild Anxiety Verified 11/27/20 14:45 steri strips AdvReac Mild Blister Uncoded 12/02/19 06:48 Review of Systems ROS ROS Narrative: Narrative: All systems ED: reviewed and negative except as stated. PFSH Narrative Patient History Narrative: Narrative: Medical/Surgical/Family History All Active Problems (Updated 11/27/20 @ 20:47 by Lupe Lizarraga VICE PRESIDENT OF MARKETING) Recurrent intestinal obstruction (Acute) Intractable abdominal pain (Acute) Intractable vomiting with nausea (Acute) Diabetes mellitus (Acute) Acute UTI (Acute) Hypercalcemia (Acute) COVID-19 (Acute) Acute kidney injury (Acute) Hypercalcemia (Acute) Hyponatremia (Acute) Elevated serum creatinine (Acute) Low back pain (Acute) Partial small bowel obstruction (Acute) Nausea and vomiting (Acute) Hypokalemia (Acute) Hyponatremia (Acute) Elevated LFTs (Acute) Small bowel obstruction (Acute) Dehydration (Acute) Primary chronic pseudo-obstruction of small intestine (Acute) UTI (urinary tract infection) (Acute) Hypocalcemia (Acute) Nausea & vomiting (Acute) Severe sepsis (Acute) 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 (Acute) Chronic, continuous use of opioids (Chronic) Myasthenia gravis (Chronic) Chronic intestinal pseudo-obstruction (Chronic) Recurrent intestinal obstruction (Chronic) Diabetes mellitus type 2, uncontrolled (Chronic) LA (obstructive sleep apnea) (Chronic) Hypertension (Chronic) Obesity, Class II, BMI 35-39.9 (Chronic) Low blood magnesium level (Chronic) Abdominal pain (Chronic) Chronic use of steroids (Chronic) Abnormal liver enzymes (Chronic) Hypothyroidism (Chronic) Sarcoidosis (Chronic) Polyglandular autoimmune syndrome (Chronic) Recurrent abdominal pain (Chronic) Medical History Abdominal pain (Resolved) Abdominal pain (Chronic) Abdominal wound dehiscence (Resolved) Abnormal liver enzymes (Chronic) Achalasia and cardiospasm (Resolved) Acute respiratory insufficiency (Resolved) Adverse reaction to drug (Resolved) Anaphylaxis (Resolved) Bowel obstruction (Resolved) 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) Chronic use of steroids (Chronic) for myasthenia gravis; 10+ years Chronic, continuous use of opioids (Chronic) Constipation due to neurogenic bowel (Resolved) Constipation due to pain medication therapy (Resolved) Dehydration (Resolved) Dehydration (Resolved) Diabetes mellitus type 2, uncontrolled (Chronic) Encounter for care related to Port-a-Cath (Resolved) Fecal impaction (Resolved) Foot sprain (Resolved) Hypercalcemia (Resolved) Hypertension (Chronic) Hypocalcemia (Resolved) Hyponatremia (Resolved) Hypothyroidism (Chronic) Ileus (Resolved) Infiltrate of lung present on imaging of chest (Resolved) Intractable vomiting (Resolved) Lactic acid acidosis (Resolved) Low blood magnesium level (Chronic) Myasthenia gravis (Chronic) Nausea (Resolved) Nausea & vomiting (Resolved) Nausea & vomiting (Resolved) Nausea and vomiting (Resolved) Obesity, Class II, BMI 35-39.9 (Chronic) Obstruction of descending colon (Resolved) LA (obstructive sleep apnea) (Chronic) Pancreatitis (Resolved) Parastomal hernia with obstruction, without gangrene (Resolved) Partial intestinal obstruction, unspecified as to cause (Resolved) Partial small bowel obstruction (Resolved) Pneumonia (Resolved) 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) Pseudoobstruction of colon (Resolved) Pyelonephritis (Resolved) Recurrent abdominal pain (Chronic) Recurrent intestinal obstruction (Chronic) many recurrences; many surgical interventions Sarcoidosis (Chronic) Sepsis (Resolved) Sepsis associated hypotension (Resolved) Sepsis with acute hypoxic respiratory failure (Resolved) Severe sepsis (Resolved) Sigmoid volvulus (Resolved) Sinus tachycardia (Resolved) Sinus tachycardia (Resolved) Small bowel obstruction (Resolved) Small bowel obstruction (Resolved) Small bowel obstruction (Resolved) Small bowel obstruction (Resolved) Small bowel obstruction (Resolved) Small bowel obstruction (Resolved) Small bowel obstruction due to adhesions (Resolved) Small bowel obstruction due to postoperative adhesions (Resolved) Small bowel obstruction, partial (Resolved) Supraventricular tachycardia (Resolved) UTI (urinary tract infection) (Resolved) UTI (urinary tract infection) (Resolved) Volvulus of sigmoid colon (Resolved) Surgical History History of exploratory laparotomy (Acute) 10/17/2017-with adhesiolysis History of exploratory laparotomy (Acute) 12/01/2017-with adhesiolysis History of exploratory laparotomy (Acute) 07/18/2018 History of exploratory laparotomy (Acute) 08/10/2018-Exploratory laparotomy with small bowel adhesiolysis and incisional hernia repair with mesh graft S/P ileostomy (Resolved) Family History Father CAD (coronary artery disease) Mother CAD (coronary artery disease) Grandfather CVA (cerebral vascular accident) Grandmother CVA (cerebral vascular accident) Social History Smoking Status: Never smoker Alcohol Intake Frequency: does not drink Substance Use: does not use Exam Narrative Narrative: Narrative: General Limitations: no limitations General appearance: Present alert, anxious, grimacing and other (Vomiting) Head Head: Present atraumatic and normocephalic Chest Chest: Present symmetric chest wall rise Respiratory Respiratory: Present normal lung sounds bilaterally; Absent respiratory distress, rales/crackles, wheezes, stridor and accessory muscle use Cardiovascular Cardiovascular: Present regular rate and normal heart sounds Adbominal Abdominal: Present distention (Mild diffuse), tenderness (Diffuse throughout), hypoactive bowel sounds and other (Ostomy present); Absent guarding, rebound and rigidity Back Back: Absent CVA tenderness (R) and CVA tenderness (L) Neurological Neurological: Present alert and oriented X3 Psychiatric Psychiatric: Present anxious Skin Skin: Present warm (WNL), dry, intact and normal color Course Vital Signs Vital signs: Vital Signs Temperature 97.4 F 11/27/20 14:43 Pulse Rate 131 H 11/27/20 14:43 Respiratory Rate 20 11/27/20 14:43 Blood Pressure 154/90 11/27/20 14:43 Pulse Oximetry (%) 94 11/27/20 14:43 Temperature 97.4 F 11/27/20 14:43 Pulse Rate 103 H 11/27/20 19:54 Respiratory Rate 18 11/27/20 19:22 Blood Pressure 139/84 11/27/20 19:54 Pulse Oximetry (%) 96 11/27/20 19:54 MDM MDM Narrative Medical decision making narrative: Narrative: Patient was in the ER about 6 hours total. We gave her a couple liters of fluid as well as multiple doses of Zofran, Phenergan, and Dilaudid for pain. She continues to vomit and complain of 10 out of 10 pain. When sleeping she does fine but about every 45 minutes she wakes up and is complaining of pain being out of control and vomiting several times. At 2029 I did speak with the surgeon on-call, Dr. Sadler who agrees to accept this patient. He has asked me to put in holding orders which I will do. Please see past medical records from last 48 hours due to recent admission and full work-up as well which were reviewed here today. Lab Data Lab results reviewed: Yes I reviewed the patient's lab results. Result diagrams: 11/27/20 15:08 11/27/20 15:08 Labs: Lab Results 11/27/20 11/27/20 11/27/20 Range/Units 15:08 15:08 15:08 WBC 10.4 (4.5-11.0) K/mcL RBC 4.57 (4.00-5.20) M/mcL Hgb 13.3 (12.0-15.0) g/dL Hct 42.1 (36.0-48.0) % MCV 92.1 (80.0-100.0) fL MCH 29.1 (26.0-34.0) pg MCHC 31.6 (31.0-36.0) g/dL RDW 14.4 (11.5-14.5) % Plt Count 282 (140-440) K/mcL MPV 9.1 (7.4-10.4) fL Neut % (Auto) 66.3 (38.0-78.0) % Lymph % (Auto) 22.5 (15.0-49.0) % [place] % (Auto) 7.9 (1.0-12.0) % Eos % (Auto) 3.2 (0.0-7.0) % Baso % (Auto) 0.1 (0.0-2.0) % Lymph # (Auto) 2.34 (1.50-4.80) K/mcL [place] # (Auto) 0.82 (0.10-0.90) K/mcL Eos # (Auto) 0.33 (0.00-0.70) K/mcL Baso # (Auto) 0.01 (0.00-0.20) K/mcL Absolute Neutrophils 6.88 (1.80-8.00) K/mcL VBG Lactic Acid 2.4 H (0.5-2.0) mmol/L Sodium 136 (133-145) mmol/L Potassium 3.7 (3.3-5.1) mmol/L Chloride 97 (96-108) mmol/L Carbon Dioxide 27 (22-30) mmol/L Anion Gap 12.0 (8.0-16.0) BUN 15 (6-20) mg/dL Creatinine 0.9 (0.6-1.1) mg/dL GFR Calculation 70 Glucose 183 H (70-105) mg/dL Calcium 7.2 L (8.6-10.4) mg/dL Total Bilirubin < 0.2 (0.1-1.0) mg/dL AST 18 (<32) U/L ALT 18 (<40) U/L Alkaline Phosphatase 94 (39-117) U/L Total Protein 5.7 L (5.9-8.4) gm/dL Albumin 3.0 L (3.2-5.2) gm/dL Globulin 2.7 (2.2-3.7) gm/dL Albumin/Globulin Ratio 1.1 (1.0-2.3) Radiology Data Radiology results reviewed: Yes I reviewed the patient's radiology results. Radiology results narrative: We did not CTs this patient as she has had recent CTs within the last 48 hours. We did get an abdomen that shows a bowel gas pattern consistent with obstruction which is chronic for her. Discharge Plan Patient/Caregiver Discharge Instructions Pt seen by FISCAL SERVICES MANAGER/PA only: Yes Clinical Impression: Recurrent intestinal obstruction, Intractable abdominal pain, Intractable vomiting with nausea Patient Disposition: Xfer As Outpt/Obs ([facility]) Condition: Fair Follow up with: Douglas Haque MD [Primary Care Provider] - Prescriptions: No Action pyridostigmine bromide 5 mg/mL solution 10 mg IM Q6H Qty: 240 RF: 5 syringe with needle [BD Luer-Archie Syringe] 3 mL 25 gauge x 1" syringe See Rx Instructions .ROUTE .COMPLEX Qty: 100 RF: 4 (DME) filter needles 19 x 1 1/2" 19 x 1 1/2 " needle See Rx Instructions .ROUTE .MEDSUPPLY Qty: 100 RF: 1 promethazine 25 mg tablet 25 mg PO Q6HP PRN (Reason: Nausea) Qty: 60 RF: 3 duloxetine 30 MG capsule 30 mg PO BID RF: 0 levothyroxine 125 MCG tablet 250 mcg PO QAMAC RF: 0 calcitriol 0.25 MCG capsule See Rx Instructions .ROUTE .COMPLEX RF: 0 insulin glargine 1 UNIT/0.01 ML unit 10 unit SQ BID RF: 0 Accu-Chek 1 EACH strip 1 each FS ACHS RF: 0 cyclobenzaprine 10 MG tablet 10 mg PO BIDP PRN (Reason: Spasms) RF: 0 magnesium oxide 250 MG tablet 500 mg PO BID RF: 0 promethazine 25 MG suppository 25 mg OK Q6HP PRN (Reason: nausea vomitting) RF: 0 ondansetron 4 MG tablet 4 mg SL Q4HP PRN (Reason: Nausea) RF: 0 metformin 500 MG tablet 500 mg PO BID RF: 0 acetaminophen 325 MG tablet 500 mg PO Q6HP PRN (Reason: Pain/Fever > 101) RF: 0 prednisone 20 MG tablet [facility] [place] RF: 0 gabapentin 300 mg capsule 300 mg PO BID RF: 0
[2020-11-27] MEDS ORDERED: LIDOCAINE JEL 2% 1 TUBE 5ML TOPICAL ONE (21:24)
[2020-11-28] MEDS: HYDROmorphone 0.5 MG/0.5 ML SYRINGE IV PRN ×11 (00:14→23:42)
[2020-11-28 00:48] LABS: Appearance,Urine CLEAR (Clear); Bacteria,Urine FEW /hpf (0); Bilirubin,Urine Negative (Negative); Color,Urine YELLOW; Culture Indicated,Urine Yes; Glucose,Urine (UA) Negative (Negative); Ketones,Urine Negative (Negative); Leukocyte Esterase,Urine 25 /ug (Negative); Mucus,Urine MOD /hpf; Nitrate,Urine Negative (Negative); Protein,Urine Negative (Negative); Specific Gravity,Urine 1.015 (1.000-1.035); Urine Blood Negative (Negative); Urine Granular Cast 3 /lph (0-0); Urine Hyaline Cast 3 /lph (0-2); Urine RBC 1 /hpf (0-3); Urine Squamous Epithelial Cell < 1 /hpf (0-4); Urine Transitional Epi Cells < 1 /hpf (0-2); Urine WBC 7 /hpf (0-4); Urobilinogen,Urine Negative
[2020-11-28] MEDS: ONDANSETRON 4 MG/2 ML VIAL IV PRN ×3 (04:39→14:57)
--- NOTE | 2020-11-28 09:04 | XRay Report ---
CLINICAL INFORMATION: NG Placement COMPARISON: 11/27/2020. FINDINGS: NG tube overlies the mid gastric body. The stomach duodenum and multiple loops of jejunum remain moderately dilated likely. No significant change from prior exam. Possible small amounts of free air seen in the upper abdomen. IMPRESSION: High-grade distal small bowel obstruction pattern unchanged. NG tube in satisfactory position. Possible small amount of free air in the upper abdomen. Suggest upright chest x-ray Interpreted and Authenticated by: All Lundberg 11/28/20
[2020-11-28] MEDS: 0.9 % SODIUM CHLORIDE 1,000 ML IV SCH ×2 (11:25→18:01)
[2020-11-28] MEDS ORDERED: DEXTROSE 50% 50 ML VIAL IV PRN (11:38)
[2020-11-28] MEDS ORDERED: DEXTROSE 31 GM ORAL.SUSP PO PRN (11:38)
[2020-11-28] MEDS ORDERED: DIAZEPAM 10 MG/2 ML SYRINGE IV PRN (12:12)
[2020-11-28] MEDS: PROMETHAZINE 25 MG/ML VIAL IV PRN ×2 (12:32→17:54)
[2020-11-28] MEDS: INSULIN LISPRO 1 UNIT/0.01 ML UNIT SQ SCH ×3 (12:37→23:39)
--- NOTE | 2020-11-28 13:36 | General Surg History&Physical ---
HPI History of Present Illness Patient information: Note initiated : 11/28/20 at 1:23 pm Service Date, if different from initiated Date: [] Patient: Dayanna Guo a 59 y/o F admitted on 11/27/20 for abdominal pain. Chief Complaint: [] History of present illness: Ms. Guo is a 59 year old F who was admitted for treatment of recurrent small bowel obstruction. The patient has a long history of recurrent intestinal pseudoobstruction and has had multiple admissions for pseudoobstruction or adhesive disease. She was discharged 1 day ago after being admitted for obstruction with a massively dilated stomach and small bowel without a transition point. She also had electrolyte imbalance with elevated lactic acid and leukocytosis. She was treated with nasogastric decompression, Regonol therapy, MiraLAX. She was hospitalized for 3 days and was tolerating soft diet at the time of discharge. She states that since getting home she has had increasing abdominal pain with distention with intractable nausea and vomiting. She was seen in the emergency room and treated for 5 hours but had continued severe nausea and vomiting. She never stopped having a small amount of stool in her stoma pouch. She primarily complains of severe upper abdominal pain with major distention. She is afebrile and does not have major tachycardia. She is admitted and will undergo similar treatment until she has recovered. Constitutional Constitutional: Present fatigue, lethargy, malaise, night sweats, weakness and weight loss EENT Eyes: Absent diplopia and pain Ears: Absent decreased hearing and tinnitus Nose, mouth and throat: Present dry mouth and dysphagia Cardiovascular Cardiovascular: Present lightheadedness, palpatations and rapid heart rate; Absent chest pain and dyspnea on exertion Respiratory Respiratory: Absent cough, dyspnea on exertion and wheezing Gastrointestinal Gastrointestinal: Present abdominal pain, belching, change in bowel habits, change in stool character, diarrhea, heartburn, loose stools, nausea and vomiting Genitourinary Genitourinary: Absent dysuria, hematuria and nocturia Musculoskeletal Musculoskeletal: Present arthralgias, muscle cramps, myalgias, numbness and tingling Integumentary Integumentary: Present alopecia and dry skin; Absent pruritus and swelling Neurological Neurological: Present dizziness, headache(s), numbness, restless legs, tingling and weakness; Absent abnormal gait Psychiatric Psychiatric: Present abnormal sleep pattern and depression Endocrine Endocrine: Absent polydipsia, polyphagia and polyuria Hematologic/Lymphatic Hematologic/Lymphatic: Absent easy bleeding, easy bruising and lymphadenopathy Allergic/Immunologic Allergic/Immunologic: Absent tongue swelling, throat swelling, itchy eyes, uticaria, wheezing and lip swelling PFSH PFSH All Active Problems Recurrent intestinal obstruction (Acute) Intractable abdominal pain (Acute) Intractable vomiting with nausea (Acute) Diabetes mellitus (Acute) Acute UTI (Acute) Hypercalcemia (Acute) COVID-19 (Acute) Acute kidney injury (Acute) Hypercalcemia (Acute) Hyponatremia (Acute) Elevated serum creatinine (Acute) Low back pain (Acute) Partial small bowel obstruction (Acute) Nausea and vomiting (Acute) Hypokalemia (Acute) Hyponatremia (Acute) Elevated LFTs (Acute) Small bowel obstruction (Acute) Dehydration (Acute) Primary chronic pseudo-obstruction of small intestine (Acute) UTI (urinary tract infection) (Acute) Hypocalcemia (Acute) Nausea & vomiting (Acute) Severe sepsis (Acute) 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 (Acute) Chronic, continuous use of opioids (Chronic) Myasthenia gravis (Chronic) Chronic intestinal pseudo-obstruction (Chronic) Recurrent intestinal obstruction (Chronic) Diabetes mellitus type 2, uncontrolled (Chronic) LA (obstructive sleep apnea) (Chronic) Hypertension (Chronic) Obesity, Class II, BMI 35-39.9 (Chronic) Low blood magnesium level (Chronic) Abdominal pain (Chronic) Chronic use of steroids (Chronic) Abnormal liver enzymes (Chronic) Hypothyroidism (Chronic) Sarcoidosis (Chronic) Polyglandular autoimmune syndrome (Chronic) Recurrent abdominal pain (Chronic) Medical History Abdominal pain (Resolved) Abdominal pain (Chronic) Abdominal wound dehiscence (Resolved) Abnormal liver enzymes (Chronic) Achalasia and cardiospasm (Resolved) Acute respiratory insufficiency (Resolved) Adverse reaction to drug (Resolved) Anaphylaxis (Resolved) Bowel obstruction (Resolved) 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) Chronic use of steroids (Chronic) for myasthenia gravis; 10+ years Chronic, continuous use of opioids (Chronic) Constipation due to neurogenic bowel (Resolved) Constipation due to pain medication therapy (Resolved) Dehydration (Resolved) Dehydration (Resolved) Diabetes mellitus type 2, uncontrolled (Chronic) Encounter for care related to Port-a-Cath (Resolved) Fecal impaction (Resolved) Foot sprain (Resolved) Hypercalcemia (Resolved) Hypertension (Chronic) Hypocalcemia (Resolved) Hyponatremia (Resolved) Hypothyroidism (Chronic) Ileus (Resolved) Infiltrate of lung present on imaging of chest (Resolved) Intractable vomiting (Resolved) Lactic acid acidosis (Resolved) Low blood magnesium level (Chronic) Myasthenia gravis (Chronic) Nausea (Resolved) Nausea & vomiting (Resolved) Nausea & vomiting (Resolved) Nausea and vomiting (Resolved) Obesity, Class II, BMI 35-39.9 (Chronic) Obstruction of descending colon (Resolved) LA (obstructive sleep apnea) (Chronic) Pancreatitis (Resolved) Parastomal hernia with obstruction, without gangrene (Resolved) Partial intestinal obstruction, unspecified as to cause (Resolved) Partial small bowel obstruction (Resolved) Pneumonia (Resolved) 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) Pseudoobstruction of colon (Resolved) Pyelonephritis (Resolved) Recurrent abdominal pain (Chronic) Recurrent intestinal obstruction (Chronic) many recurrences; many surgical interventions Sarcoidosis (Chronic) Sepsis (Resolved) Sepsis associated hypotension (Resolved) Sepsis with acute hypoxic respiratory failure (Resolved) Severe sepsis (Resolved) Sigmoid volvulus (Resolved) Sinus tachycardia (Resolved) Sinus tachycardia (Resolved) Small bowel obstruction (Resolved) Small bowel obstruction (Resolved) Small bowel obstruction (Resolved) Small bowel obstruction (Resolved) Small bowel obstruction (Resolved) Small bowel obstruction (Resolved) Small bowel obstruction due to adhesions (Resolved) Small bowel obstruction due to postoperative adhesions (Resolved) Small bowel obstruction, partial (Resolved) Supraventricular tachycardia (Resolved) UTI (urinary tract infection) (Resolved) UTI (urinary tract infection) (Resolved) Volvulus of sigmoid colon (Resolved) Surgical History History of exploratory laparotomy (Acute) 10/17/2017-with adhesiolysis History of exploratory laparotomy (Acute) 12/01/2017-with adhesiolysis History of exploratory laparotomy (Acute) 07/18/2018 History of exploratory laparotomy (Acute) 08/10/2018-Exploratory laparotomy with small bowel adhesiolysis and incisional hernia repair with mesh graft S/P ileostomy (Resolved) Family History Father CAD (coronary artery disease) Mother CAD (coronary artery disease) Grandfather CVA (cerebral vascular accident) Grandmother CVA (cerebral vascular accident) Social History smoking status: Never smoker alcohol intake frequency: does not drink substance use type: does not use MEDS/ALLERGIES Home Medications and Allergies Home Medications Medication Instructions Recorded Confirmed Type duloxetine 30 mg PO BID 11/30/16 11/28/20 History levothyroxine 250 mcg PO QAMAC 08/20/17 11/28/20 History calcitriol See Rx Instructions .ROUTE .COMPLEX 02/11/19 11/28/20 History insulin glargine 10 unit SQ BID 09/30/19 11/28/20 History Accu-Chek 1 each FS ACHS strip 12/03/19 11/28/20 Rx cyclobenzaprine 10 mg PO BIDP PRN 12/13/19 11/28/20 History magnesium oxide 500 mg PO BID 12/13/19 11/28/20 History ondansetron 4 mg SL Q4HP PRN 12/24/19 11/28/20 History promethazine [address] Q6HP PRN 12/24/19 11/28/20 History pyridostigmine bromide 5 mg/mL 10 mg IM Q6H #240 ml 01/04/20 11/28/20 Rx injection solution metformin 500 mg PO BID 07/12/20 11/28/20 History syringe with needle 3 mL 25 gauge See Rx Instructions .ROUTE 08/31/20 11/28/20 Rx x 1" .COMPLEX #100 unspecified acetaminophen 500 mg PO Q6HP PRN 09/14/20 11/28/20 History gabapentin 300 mg PO BID 09/14/20 11/28/20 History prednisone 20 mg PO QAMCC 09/14/20 11/28/20 History filter needles 19 x 1 1/2" #100 each 10/19/20 11/27/20 Rx promethazine 25 mg tablet 25 mg PO Q6HP PRN #60 tab 11/24/20 11/28/20 Rx Allergies Allergy/AdvReac Type Severity Reaction Status Date / Time Sulfa (Sulfonamide Allergy Severe Anaphylaxis Verified 11/27/20 14:45 Antibiotics) adhesive tape AdvReac Mild Blister Verified 11/27/20 14:45 metoclopramide [From Reglan] AdvReac Mild Anxiety Verified 11/27/20 14:45 steri strips AdvReac Mild Blister Uncoded 12/02/19 06:48 Physical Examination Vital Signs Vital signs: Temp Pulse Resp BP Pulse Ox 98.1 F 104 H 18 122/65 95 11/28/20 12:00 11/28/20 12:00 11/28/20 12:00 11/28/20 12:00 11/28/20 12:00 General physical appearance General physical exam: well developed, well nourished, moderate distress, moderate pain, chronically ill and obese Eyes Eye exam: PERRL and normal ocular movement; negative pale and icteric ENT ENT exam: normal mucosa, no hearing loss, no congestion and nasal discharge Head Head exam IM: Present atraumatic, normal inspection and normocephalic Neck Neck exam: no masses, no bruits, trachea midline, no lymphadenopathy and no venous distension Cardiovascular Cardiovascular exam IM: Present +S1, +S2 and tachycardia; Absent JVD and RRR Respiratory Respiratory exam: normal expansion, normal respiratory effort, clear to percussion and clear to auscultation Abdomen Abdomen: Present tender, bowel sounds (Hyperactive bowel sounds), surgical scars (Healed midline surgical incision) and distended; Absent guarding Hernia: Present none Integumentary Integumentary: Present no rash, no growths and no abnormal pigmentation Neurologic Neurologic: Present normal coordination and normal sensation Musculoskeletal Musculoskeletal: Present normal gait and normal posture Psychiatric Psychiatric: Present oriented to time, oriented to person, oriented to place, speech is normal and memory intact Results Labs Result diagrams: 11/27/20 15:08 11/27/20 15:08 Labs: Abnormal lab results 11/27/20 11/27/20 11/27/20 Range/Units 15:08 15:08 23:24 VBG Lactic Acid 2.4 H (0.5-2.0) mmol/L Glucose 183 H (70-105) mg/dL Calcium 7.2 L (8.6-10.4) mg/dL Total Protein 5.7 L (5.9-8.4) gm/dL Albumin 3.0 L (3.2-5.2) gm/dL Ur Leukocyte Esterase 25 A (Negative) /ug Urine WBC 7 H (0-4) /hpf Urine Bacteria Few A (0) /hpf Hyaline Casts 3 H (0-2) /lph Granular Casts 3 H (0-0) /lph Urine Mucus Mod A (None) /hpf Diabetes panel 11/27/20 Range/Units 15:08 Sodium 136 (133-145) mmol/L Potassium 3.7 (3.3-5.1) mmol/L Chloride 97 (96-108) mmol/L Carbon Dioxide 27 (22-30) mmol/L BUN 15 (6-20) mg/dL Creatinine 0.9 (0.6-1.1) mg/dL Glucose 183 H (70-105) mg/dL Calcium 7.2 L (8.6-10.4) mg/dL AST 18 (<32) U/L ALT 18 (<40) U/L Alkaline Phosphatase 94 (39-117) U/L Total Protein 5.7 L (5.9-8.4) gm/dL Albumin 3.0 L (3.2-5.2) gm/dL Calcium panel 11/27/20 Range/Units 15:08 Calcium 7.2 L (8.6-10.4) mg/dL Albumin 3.0 L (3.2-5.2) gm/dL Pituitary panel 11/27/20 Range/Units 15:08 Sodium 136 (133-145) mmol/L Potassium 3.7 (3.3-5.1) mmol/L Chloride 97 (96-108) mmol/L Carbon Dioxide 27 (22-30) mmol/L BUN 15 (6-20) mg/dL Creatinine 0.9 (0.6-1.1) mg/dL Glucose 183 H (70-105) mg/dL Calcium 7.2 L (8.6-10.4) mg/dL Adrenal panel 11/27/20 Range/Units 15:08 Sodium 136 (133-145) mmol/L Potassium 3.7 (3.3-5.1) mmol/L Chloride 97 (96-108) mmol/L Carbon Dioxide 27 (22-30) mmol/L BUN 15 (6-20) mg/dL Creatinine 0.9 (0.6-1.1) mg/dL Glucose 183 H (70-105) mg/dL Calcium 7.2 L (8.6-10.4) mg/dL Total Bilirubin < 0.2 (0.1-1.0) mg/dL AST 18 (<32) U/L ALT 18 (<40) U/L Alkaline Phosphatase 94 (39-117) U/L Total Protein 5.7 L (5.9-8.4) gm/dL Albumin 3.0 L (3.2-5.2) gm/dL All other labs normal. 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 (4) Primary chronic pseudo-obstruction of small intestine: Status: Acute (5) Chronic, continuous use of opioids: Status: Chronic (6) Myasthenia gravis: Status: Chronic (7) LA (obstructive sleep apnea): Status: Chronic (8) Hypertension: Status: Chronic Qualifiers: Hypertension type: essential hypertension Qualified Code(s): I10 - Essential (primary) hypertension Narrative A/P Narrative: Nasogastric decompression Restart Regonol therapy Accu-Cheks with sliding scale insulin coverage Solu-Medrol IV every 6 hours Diazepam 10 mg for muscle spasm and twitching Replace electrolytes as needed Monitor renal status closely Check abdominal x-rays daily Add MiraLAX after 24 hours Time Spent With Patient Time: Total time spent is greater than 50% in coordination of care (as documented) at patient's floor/unit and/or counseling patient:
[2020-11-28] MEDS ORDERED: DIAZEPAM 10 MG/2 ML SYRINGE IV SCH (14:00)
[2020-11-28] MEDS: BENZOCAINE 1 SPRAY BOTTLE TOPICAL PRN ×3 (15:02→19:56)
[2020-11-28] MEDS ORDERED: INSULIN LISPRO 1 UNIT/0.01 ML UNIT SQ SCH (17:00)
[2020-11-28] MEDS: PYRIDOSTIGMINE BROMIDE 10 MG/2 ML ML IM SCH ×2 (17:53→23:35)
[2020-11-28] MEDS ORDERED: HEPARIN SODIUM,PORCINE/PF 500 UNIT/5 ML SYRINGE IV ONE (19:37)
[2020-11-28] MEDS ORDERED: HEPARIN SODIUM,PORCINE/PF 500 UNIT/5 ML SYRINGE IV PRN (19:39)
[2020-11-28] MEDS: methylPREDNISolone SOD SUCC 125 MG/2 ML VIAL IV SCH (19:56)
[2020-11-28] MEDS: 0.9 % SODIUM CHLORIDE 10 ML SYRINGE IV SCH (19:56)
[2020-11-29] MEDS: 0.9 % SODIUM CHLORIDE 1,000 ML IV SCH ×5 (01:00→21:58)
[2020-11-29] MEDS: HYDROmorphone 0.5 MG/0.5 ML SYRINGE IV PRN ×8 (02:25→20:54)
[2020-11-29] MEDS: ONDANSETRON 4 MG/2 ML VIAL IV PRN (03:38)
[2020-11-29] MEDS: PYRIDOSTIGMINE BROMIDE 10 MG/2 ML ML IM SCH ×3 (05:29→17:35)
[2020-11-29] MEDS: INSULIN LISPRO 1 UNIT/0.01 ML UNIT SQ SCH ×3 (05:44→17:35)
[2020-11-29] MEDS: PROMETHAZINE 25 MG/ML VIAL IV PRN (06:04)
[2020-11-29 06:56] LABS: Basophils # (Auto) 0.01 K/mcL (0.00-0.20); Basophils % (Auto) 0.2 % (0.0-2.0); Eosinophils # (Auto) 0 K/mcL (0.00-0.70); Eosinophils % (Auto) 0 % (0.0-7.0); Hematocrit 36.8 % (36.0-48.0); Hemoglobin 11.5 g/dL (12.0-15.0); Lymphocytes # (Auto) 0.61 K/mcL (1.50-4.80); Lymphocytes % (Auto) 9.5 % (15.0-49.0); Mean Cell Volume 94.4 fL (80.0-100.0); Mean Corpuscular HGB Conc 31.3 g/dL (31.0-36.0); Monocytes # (Auto) 0.07 K/mcL (0.10-0.90); Monocytes % (Auto) 1.1 % (1.0-12.0); Neutrophils % (Auto) 89.2 % (38.0-78.0); Platelet Count 226 K/mcL (140-440); Red Cell Distribution Width 14.2 % (11.5-14.5); WBC 6.4 K/mcL (4.5-11.0)
[2020-11-29 07:19] LABS: ALT/SGPT 14 U/L (<40); AST/SGOT 16 U/L (<32); Albumin 2.2 gm/dL (3.2-5.2); Albumin/Globulin Ratio 0.9 (1.0-2.3); Alkaline Phosphatase 77 U/L (39-117); Bilirubin,Direct < 0.2 mg/dL (<0.3); Bilirubin,Total 0.2 mg/dL (0.1-1.0); Blood Urea Nitrogen 9 mg/dL (6-20); Calcium 5.7 mg/dL (8.6-10.4); Carbon Dioxide 29 mmol/L (22-30); Chloride 98 mmol/L (96-108); Globulin 2.4 gm/dL (2.2-3.7); Glomerular Filtration Rate 95; Glucose 168 mg/dL (70-105); Lactate Dehydrogenase 310 U/L (135-225); Triglycerides 138 mg/dL (<150); Uric Acid 4.2 mg/dL (2.5-8.0)
[2020-11-29] MEDS: LEVOTHYROXINE 100 MCG VIAL IV SCH (07:46)
[2020-11-29] MEDS ORDERED: CALCIUM GLUCONATE 9.3 MEQ in DEXTROSE 5% IN WATER 50 ML IV SCH (09:00)
[2020-11-29] MEDS ORDERED: CALCIUM GLUCONATE 4.65 MEQ/10 ML VIAL IV SCH (09:00)
[2020-11-29] MEDS: 0.9 % SODIUM CHLORIDE 10 ML SYRINGE IV SCH ×2 (09:12→21:01)
[2020-11-29] MEDS: methylPREDNISolone SOD SUCC 125 MG/2 ML VIAL IV SCH ×2 (09:12→20:46)
--- NOTE | 2020-11-29 10:02 | XRay Report ---
CLINICAL INFORMATION: FOLLOW -UP OF SMALL BOWEL OBSTRUCTION COMPARISON: 11/27/2020 FINDINGS: NG tube overlies the gastric body stomach is decompressed. Few loops of upper small bowel remain moderately dilated although they're partially decompressed since yesterday's exam.. There is no subdiaphragmatic free air, however there may be free air within the interloop region of the mid abdomen or possibly emphysema within the bowel wall.. IMPRESSION: Improving small bowel obstruction pattern. Possible mesenteric air trapped in the interloop region versus emphysema in the bowel wall. Suggest repeat abdomen and pelvic CT Interpreted and Authenticated by: All Lundberg 11/29/20
[2020-11-29] MEDS: MAGNESIUM SULFATE 4 GM/100 ML BAG IV SCH ×2 (10:08→15:20)
--- NOTE | 2020-11-29 12:39 | General Surgery Progress Note ---
SUBJECTIVE Subjective Patient information: Note initiated : 11/29/20 at 12:33 pm Service Date, if different from initiated Date: [] Patient: Dayanna Guo 59 y/o F admitted on 11/27/20 for abdominal pain. Chief Complaint: [] Principal diagnosis: Small bowel obstruction Interval history: Patient is significantly improved. SHE has had significant throug tubeh her nasogastric output. She still has some output through her stoma but she has moderate amount of hard stool that may be causing partial obstruction still. X-ray of the abdomen shows and distal small bowel significant reduction in size of stomach small bowel in the midabdomen however there is a single loop of that remains dilated. Constitutional Vitals: Vital Signs Temp Pulse Resp BP Pulse Ox 97.3 F 75 18 118/71 95 11/29/20 08:00 11/29/20 08:00 11/29/20 08:00 11/29/20 08:00 11/29/20 08:00 Period Temp Pulse Resp BP Sys/Archuleta Pulse Ox Last 24 Hr 97.3 F-98.7 F 75-107 12-20 110-121/65-71 93-100 Intake and Output 11/28/20 11/29/20 11/29/20 21:59 05:59 13:59 Intake Total 1800 1060 1000 Output Total 3200 1575 900 Balance -1400 -515 100 Weight 247 lb 9.6 oz Intake & Output: Intake & Output 11/28/20 11/29/20 11/29/20 21:59 05:59 13:59 Intake Total 1800 1060 1000 Output Total 3200 1575 900 Balance -1400 -515 100 Weight 247 lb 9.6 oz Intake: IV 1000 1000 1000 Sodium Chloride 0.9% 1,000 ml @ 1000 1000 1000 150 mls/hr IV .[id number] [facility] Rx#: [id number] Oral 320 60 GI Tube Flush 480 Output: Gastric Drainage 1300 1575 900 Left Nare 1300 1575 900 Void Amount 950 Stool 950 0 Other: Urine Appearance Clear Urine Color Bright Yellow Urine Odor Normal Stool Size Small Stool Color Brown Stool Consistency Liquid Watery Head Head exam: Present atraumatic, normal inspection and normocephalic Eye Eye exam: Present EOMI and normal appearance Pupils: Present normal accommodation and PERRL ENT ENT exam: Present normal exam and normal oropharynx Neck Neck exam: Present full ROM; Absent tenderness Respiratory Respiratory exam: Present normal respiratory exam and CTAB; Absent rales, rhonchi and wheezes Cardiovascular Cardiovascular exam: Present RRR, +S1, +S2 and tachycardia; Absent JVD GI/Abdominal GI/Abdominal exam: Present normal bowel sounds and soft; Absent distended and tenderness Extremities Exam Extremities exam: Present normal capillary refill and neurovascular intact; Absent calf tenderness and pedal edema Back Exam Back exam: Present full ROM Neurological Exam Neurological exam: Present alert, CN II-XII intact, normal gait, oriented X3 and reflexes normal Psychiatric Psychiatric exam: Present anxious, normal affect and normal mood Skin Skin exam: Present intact and normal color; Absent rash A/P Assessment and plan (1) Recurrent intestinal obstruction: Status: Acute (2) Intractable abdominal pain: Status: Acute (3) Diabetes mellitus: Status: Acute Qualifiers: Diabetes mellitus type: type 2 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 Diabetes mellitus complication status: without complication Qualified Code(s): E11.9 - Type 2 diabetes mellitus without complications; 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
[2020-11-29] MEDS: POLYETHYLENE GLYCOL 3350 17 GM PACKET PO SCH ×2 (13:36→18:54)
[2020-11-30] MEDS: HYDROmorphone 0.5 MG/0.5 ML SYRINGE IV PRN ×7 (00:21→23:17)
[2020-11-30] MEDS: BENZOCAINE 1 SPRAY BOTTLE TOPICAL PRN ×3 (00:24→08:44)
[2020-11-30] MEDS: POLYETHYLENE GLYCOL 3350 17 GM PACKET PO SCH ×3 (00:24→14:04)
[2020-11-30] MEDS: INSULIN LISPRO 1 UNIT/0.01 ML UNIT SQ SCH ×4 (00:33→19:00)
[2020-11-30] MEDS: 0.9 % SODIUM CHLORIDE 1,000 ML IV SCH ×3 (04:03→19:00)
[2020-11-30 06:27] LABS: Basophils # (Auto) 0.01 K/mcL (0.00-0.20); Basophils % (Auto) 0.1 % (0.0-2.0); Eosinophils # (Auto) 0 K/mcL (0.00-0.70); Eosinophils % (Auto) 0 % (0.0-7.0); Hemoglobin 11.8 g/dL (12.0-15.0); Lymphocytes # (Auto) 0.71 K/mcL (1.50-4.80); Lymphocytes % (Auto) 10.6 % (15.0-49.0); Mean Cell Volume 92.2 fL (80.0-100.0); Mean Corpuscular HGB Conc 31.1 g/dL (31.0-36.0); Mean Platelet Volume 8.9 fL (7.4-10.4); Monocytes # (Auto) 0.27 K/mcL (0.10-0.90); Neutrophils % (Auto) 85.3 % (38.0-78.0); Platelet Count 263 K/mcL (140-440); RBC 4.12 M/mcL (4.00-5.20); WBC 6.7 K/mcL (4.5-11.0)
[2020-11-30] MEDS: LEVOTHYROXINE 100 MCG VIAL IV SCH (07:43)
--- NOTE | 2020-11-30 07:54 | XRay Report ---
CLINICAL INFORMATION: FOLLOW -UP OF SMALL BOWEL OBSTRUCTION COMPARISON: None. FINDINGS: NG tube is in the gastric body. Stomach is decompressed. Few loops of moderately dilated small bowel in the central abdomen show slight improvement. There appears to be the gas within the bowel wall or in the adjacent mesenteric cavity within the dilated segments. The distal small bowel is decompressed. IMPRESSION: Slight improvement in partial small bowel obstruction. Possible emphysema in the small bowel wall. Suggest abdomen pelvic CT Interpreted and Authenticated by: All Lundberg 11/30/20
[2020-11-30 08:00] LABS: ALT/SGPT 19 U/L (<40); AST/SGOT 18 U/L (<32); Albumin 2.6 gm/dL (3.2-5.2); Albumin/Globulin Ratio 1.1 (1.0-2.3); Alkaline Phosphatase 79 U/L (39-117); Bilirubin,Direct < 0.2 mg/dL (<0.3); Bilirubin,Total < 0.2 mg/dL (0.1-1.0); Blood Urea Nitrogen 8 mg/dL (6-20); Calcium 5.7 mg/dL (8.6-10.4); Carbon Dioxide 37 mmol/L (22-30); Chloride 97 mmol/L (96-108); Globulin 2.3 gm/dL (2.2-3.7); Glomerular Filtration Rate 95; Glucose 141 mg/dL (70-105); Lactate Dehydrogenase 357 U/L (135-225); Phosphorous 3.6 mg/dL (2.5-4.5); Triglycerides 133 mg/dL (<150); Uric Acid 3.6 mg/dL (2.5-8.0)
[2020-11-30] MEDS: 0.9 % SODIUM CHLORIDE 10 ML SYRINGE IV SCH ×2 (08:41→21:43)
[2020-11-30] MEDS: PYRIDOSTIGMINE 60 MG TABLET PO SCH ×2 (08:42→14:13)
[2020-11-30] MEDS: methylPREDNISolone SOD SUCC 125 MG/2 ML VIAL IV SCH ×2 (08:42→21:43)
[2020-11-30] MEDS: CALCIUM GLUCONATE 9.3 MEQ in DEXTROSE 5% IN WATER 50 ML IV SCH ×2 (09:25→19:00)
[2020-11-30] MEDS ORDERED: IOPAMIDOL 100 ML BOTTLE IV ONE ×2 (13:55→20:38)
--- NOTE | 2020-11-30 14:35 | Cat Scan Report ---
CLINICAL INFORMATION: Recurrent small bowel obstruction COMPARISON: Abdomen and pelvic CT 05/07/2020 TECHNIQUE: Following enteric contrast, 80 cc of Isovue-370 were injected intravenously, and 60 seconds later, 0.625 mm helical slices were obtained from the mid heart through the subtrochanteric regions. Following reconstruction, 2.5 mm sagittal, coronal and axial reformatted images were processed and reviewed at bone, lung and soft tissue windows. Five minutes later, 0.625 mm helical slices were obtained from the mid heart through the kidneys and viewed at soft tissue windows.The exam was performed using radiation dose optimization techniques including, but not limited to, automated exposure control, adjustment of the mA and/or kV according to patient size and use of iterative reconstruction technique. FINDINGS: Lung bases show patchy subsegmental atelectasis in both posterior lower lobes. The heart is mostly normal in size. Small right and tiny left pleural effusion of developed from prior exam. Abdominal images show mild fatty change within the liver, but no focal hepatic lesion. The gallbladder is surgically absent. Mild common bile duct dilatation (10 mm), related to cholecystectomy, is unchanged. Both kidneys, adrenal glands, spleen, and aorta are normal in size configuration and attenuation without focal lesion. Mild pancreatic atrophy appreciated. Pelvic images show anteflexed uterus which is normal in size for age. Both ovaries are normal. The urinary bladder are unremarkable. Patient is status post subtotal colectomy with Baez's pouch consisting of the rectum. Partial small bowel resection changes also noted. NG tube remains in satisfactory position within the gastric antrum. Stomach, duodenum and upper jejunum are decompressed. There are multiple loops of moderately dilated small bowel in the midabdomen which also demonstrate pneumatosis intestinalis featuring extensive air within the small bowel wall. Moderate free intraperitoneal air is seen in the anterior mesenteric cavity.. The ileostomy in the right lower quadrant contains a moderate-sized parastomal hernia which may contribute to distal small bowel obstruction. Bone windows show grade 1 L4-5 spinal listhesis as previously seen IMPRESSION: 1. Mild partial small bowel obstruction. Exact transition point difficult to identify: it is likely in the right lower quadrant due to adhesions. Moderate peristomal hernia, consisting of a few loops of distal small bowel, as seen in the right lower quadrant ileostomy. It may contribute to small bowel obstruction. Moderate pneumatosis intestinalis has developed within dilated small bowel loops in the central abdomen with adjacent free mesenteric air. Findings compatible with infarcted bowel and associated perforation. Case discussed with Dr. Joanne Currie 11/30/2020 1424 hours 2. Mild pancreatic atrophy. 3. Mild common bile duct dilatation related to prior cholecystectomy long-term stable 4. Small right and tiny left pleural effusions. Interpreted and Authenticated by: All Lundberg 11/30/20
--- NOTE | 2020-11-30 14:45 | General Surgery Progress Note ---
SUBJECTIVE Subjective Patient information: Note initiated : 11/30/20 at 2:37 pm Service Date, if different from initiated Date: [] Patient: Dayanna Guo 59 y/o F admitted on 11/27/20 for abdominal pain. Chief Complaint: [] Principal diagnosis: Small bowel obstruction Interval history: Patient has had decreased output through her stoma and has developed some tenderness in her mid abdomen. Her morning x-rays suggest free air around the margin of her small bowel. CT with contrast was done and it shows free air with pneumatosis intestinalis. Patient's white count is normal and her sed rate is only 24. Her lactate is 2. She is advised that she has bowel perforation probably due to chronic obstruction. She is counseled for laparotomy with small bowel resection. Constitutional Vitals: Vital Signs Temp Pulse Resp BP Pulse Ox 97.9 F 76 18 137/82 93 11/30/20 12:00 11/30/20 12:00 11/30/20 12:00 11/30/20 12:00 11/30/20 12:00 Period Temp Pulse Resp BP Sys/Archuleta Pulse Ox Last 24 Hr 97.4 F-98.0 F 73-80 16-18 114-140/69-82 92-99 Intake and Output 11/30/20 11/30/20 11/30/20 05:59 13:59 21:59 Intake Total 1152 1070 Output Total 400 150 Balance 752 920 Intake & Output: Intake & Output 11/30/20 11/30/20 11/30/20 05:59 13:59 21:59 Intake Total 1152 1070 Output Total 400 150 Balance 752 920 Intake: IV 912 1070 Sodium Chloride 0.9% 1,000 ml @ 912 1000 150 mls/hr IV .Q6H40M MALENA Rx#: [id number] Calcium Gluconate 9.3 Meq In 70 Dextrose 5% in Water 50 ml @ 70 mls/hr IV Q8H MALENA Rx#: [id number] Oral 240 Output: Void Amount 400 Stool 150 Other: Urine Appearance Clear Urine Color Bright Yellow Urine Odor Normal Stool Size Small Stool Color Brown Jaren Colored Stool Consistency Soft Liquid Head Head exam: Present atraumatic, normal inspection and normocephalic Eye Eye exam: Present EOMI and normal appearance Pupils: Present normal accommodation and PERRL ENT ENT exam: Present normal exam and normal oropharynx Neck Neck exam: Present full ROM; Absent tenderness Respiratory Respiratory exam: Present normal respiratory exam and CTAB; Absent rales, rhonchi and wheezes Cardiovascular Cardiovascular exam: Present RRR, +S1, +S2 and tachycardia; Absent JVD GI/Abdominal GI/Abdominal exam: Present normal bowel sounds, soft and tenderness (Patient has tenderness in the mid abdomen but no guarding or rebound); Absent distended Extremities Exam Extremities exam: Present normal capillary refill and neurovascular intact; Absent calf tenderness and pedal edema Neurological Exam Neurological exam: Present alert, CN II-XII intact, normal gait, oriented X3 and reflexes normal Psychiatric Psychiatric exam: Present anxious, normal affect and normal mood Skin Skin exam: Present intact and normal color; Absent rash A/P Assessment and plan (1) Recurrent intestinal obstruction: Status: Acute (2) Small bowel ischemia: Status: Acute (3) 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 She is advised that more small bowel will probably have to be resected. Time Spent With Patient Time: Total time spent is greater than 50% in coordination of care (as documented) at patient's floor/unit and/or counseling patient:
[2020-11-30] MEDS ORDERED: ONDANSETRON 4 MG/2 ML VIAL ONE (15:41)
[2020-11-30] MEDS ORDERED: LIDOCAINE HCL/PF 100 MG/5 ML SYRINGE IV ONE (15:41)
[2020-11-30] MEDS ORDERED: KETAMINE 100 MG/ML ML ONE (15:41)
[2020-11-30] MEDS ORDERED: PROPOFOL 200 MG/20 ML VIAL IV ONE (15:41)
[2020-11-30] MEDS ORDERED: ROCURONIUM 10 MG/ML ML IV ONE (15:41)
[2020-11-30] MEDS ORDERED: HYDROmorphone 1 MG/ML SYRINGE ONE (15:41)
[2020-11-30] MEDS ORDERED: PHENYLEPHRINE 10 MG/ML VIAL ONE (15:41)
[2020-11-30] MEDS ORDERED: DEXAMETHASONE 10 MG/ML VIAL ONE (15:41)
[2020-11-30] MEDS ORDERED: SUGAMMADEX SODIUM 200 MG/2 ML VIAL IV ONE (15:41)
[2020-11-30] MEDS ORDERED: fentaNYL 100 MCG/2 ML VIAL IV ONE (15:41)
[2020-11-30] MEDS ORDERED: PIPERACILLIN SODIUM/TAZOBACTAM 3.375 GM in DEXTROSE 5% IN WATER 50 ML IV ONE (15:46)
[2020-11-30] MEDS ORDERED: ONDANSETRON 4 MG/2 ML VIAL IV PRN ×3 (19:16→20:38)
[2020-11-30] MEDS ORDERED: MEPERIDINE 25 MG/ML SYRINGE IV PRN ×2 (19:16→20:38)
[2020-11-30] MEDS ORDERED: diphenhydrAMINE 50 MG/ML VIAL IV PRN ×2 (19:16→20:38)
[2020-11-30] MEDS ORDERED: NALOXONE HCL 0.4 MG/ML VIAL IV PRN ×2 (19:16→20:38)
[2020-11-30] MEDS ORDERED: HYDROmorphone 0.5 MG/0.5 ML SYRINGE IV PRN ×2 (19:16→20:38)
[2020-11-30] MEDS ORDERED: IPRATROPIUM/ALBUTEROL 3 ML AMPUL.NEB NEB PRN ×2 (19:16→20:38)
[2020-11-30] MEDS ORDERED: ACETAMINOPHEN 1,000 MG/100 ML BAG IV ONE (19:16)
[2020-11-30] MEDS ORDERED: PROMETHAZINE 25 MG/ML VIAL IV PRN ×3 (19:16→20:38)
[2020-11-30] MEDS ORDERED: BENZOCAINE/MENTHOL 1 LOZENGE PO PRN ×2 (19:16→20:38)
[2020-11-30] MEDS ORDERED: LACTATED RINGERS 250 ML IV PRN ×2 (19:16→20:38)
[2020-11-30] MEDS ORDERED: LACTATED RINGERS 1,000 ML IV SCH ×2 (19:30→20:38)
--- NOTE | 2020-11-30 19:54 | Brief Operative Note ---
Brief Operative Note Date of procedure: 11/30/20 Pre-op diagnosis: small bowel obstruction; pneumotosis intestinalis Post-op diagnosis: other Procedure: extensive intraabdominal adhesions with small bowel obstruction pneumotosis intestinalis Grafts/Implants: No Anesthesia: GETA Findings: total intraperitoneal adhesions with hostile abdomen multiple areas of small bowel obstruction;pneumatosis of about 50% of small bowel;no small bowl ischemia Complications: none Surgeon: Bertha Currie Estimated blood loss (cc): 150 Specimens Removed/Pathology: none sent Condition: stable Disposition: PACU
[2020-11-30] MEDS ORDERED: PIPERACILLIN SODIUM/TAZOBACTAM 3.375 GM in DEXTROSE 5% IN WATER 50 ML IV SCH (20:00)
[2020-11-30] MEDS: fentaNYL 100 MCG/2 ML VIAL IV PRN ×2 (20:16→20:24)
[2020-11-30] MEDS ORDERED: DEXTROSE 31 GM ORAL.SUSP PO PRN (20:38)
[2020-11-30] MEDS ORDERED: DEXTROSE 50% 50 ML VIAL IV PRN (20:38)
[2020-11-30] MEDS ORDERED: fentaNYL 100 MCG/2 ML VIAL IV PRN (20:38)
[2020-11-30] MEDS ORDERED: HEPARIN SODIUM,PORCINE/PF 500 UNIT/5 ML SYRINGE IV PRN (20:38)
[2020-11-30] MEDS ORDERED: DIAZEPAM 10 MG/2 ML SYRINGE IV PRN ×2 (20:38→21:00)
[2020-12-01] MEDS: 0.9 % SODIUM CHLORIDE 1,000 ML IV SCH ×4 (00:11→14:52)
[2020-12-01] MEDS: CALCIUM GLUCONATE 9.3 MEQ in DEXTROSE 5% IN WATER 50 ML IV SCH ×3 (00:11→16:19)
[2020-12-01] MEDS: INSULIN LISPRO 1 UNIT/0.01 ML UNIT SQ SCH ×4 (00:22→17:58)
[2020-12-01] MEDS: HYDROmorphone 0.5 MG/0.5 ML SYRINGE IV PRN ×10 (01:09→21:52)
[2020-12-01] MEDS: PIPERACILLIN SODIUM/TAZOBACTAM 3.375 GM in DEXTROSE 5% IN WATER 50 ML IV SCH ×4 (01:50→19:44)
[2020-12-01 06:34] LABS: Basophils # (Auto) 0.01 K/mcL (0.00-0.20); Basophils % (Auto) 0.1 % (0.0-2.0); Eosinophils # (Auto) 0 K/mcL (0.00-0.70); Eosinophils % (Auto) 0 % (0.0-7.0); Hematocrit 35.3 % (36.0-48.0); Hemoglobin 11.3 g/dL (12.0-15.0); Lymphocytes # (Auto) 0.59 K/mcL (1.50-4.80); Lymphocytes % (Auto) 5.8 % (15.0-49.0); Mean Cell Volume 90.5 fL (80.0-100.0); Mean Platelet Volume 8.9 fL (7.4-10.4); Monocytes # (Auto) 0.95 K/mcL (0.10-0.90); Monocytes % (Auto) 9.3 % (1.0-12.0); Neutrophils % (Auto) 84.8 % (38.0-78.0); Platelet Count 279 K/mcL (140-440); Red Cell Distribution Width 14.1 % (11.5-14.5); WBC 10.2 K/mcL (4.5-11.0)
[2020-12-01] MEDS: LEVOTHYROXINE 100 MCG VIAL IV SCH (07:20)
[2020-12-01 07:28] LABS: ALT/SGPT 24 U/L (<40); AST/SGOT 24 U/L (<32); Albumin/Globulin Ratio 1.1 (1.0-2.3); Alkaline Phosphatase 64 U/L (39-117); Bilirubin,Direct < 0.2 mg/dL (<0.3); Bilirubin,Total 0.3 mg/dL (0.1-1.0); Blood Urea Nitrogen 10 mg/dL (6-20); Calcium 5.9 mg/dL (8.6-10.4); Carbon Dioxide 32 mmol/L (22-30); Chloride 101 mmol/L (96-108); Globulin 1.9 gm/dL (2.2-3.7); Glomerular Filtration Rate 95; Glucose 167 mg/dL (70-105); Lactate Dehydrogenase 433 U/L (135-225); Triglycerides 121 mg/dL (<150); Uric Acid 3.2 mg/dL (2.5-8.0)
[2020-12-01] MEDS: methylPREDNISolone SOD SUCC 125 MG/2 ML VIAL IV SCH ×2 (08:30→21:17)
[2020-12-01] MEDS ORDERED: POTASSIUM CHLORIDE 40 MEQ in DEXTROSE 5% IN WATER 250 ML IV ONE ×2 (08:37→12:37)
[2020-12-01] MEDS ORDERED: MAGNESIUM SULFATE 4 GM/100 ML BAG IV ONE (08:37)
[2020-12-01] MEDS ORDERED: 0.9 % SODIUM CHLORIDE 500 ML IV ONE (08:43)
[2020-12-01] MEDS ORDERED: POTASSIUM CHLORIDE 40 MEQ in DEXTROSE 5% IN WATER 500 ML IV ONE ×2 (09:00→13:00)
[2020-12-01] MEDS: 0.9 % SODIUM CHLORIDE 10 ML SYRINGE IV SCH ×2 (09:13→21:08)
--- NOTE | 2020-12-01 11:59 | General Surgery Progress Note ---
SUBJECTIVE Subjective Patient information: Note initiated : 12/01/20 at 11:51 am Service Date, if different from initiated Date: [] Patient: Dayanna Guo 59 y/o F admitted on 11/27/20 for abdominal pain. Chief Complaint: [] Principal diagnosis: Small bowel obstruction Interval history: 59-year-old female who is status post extensive total intraperitoneal adhesiolysis with release of multiple areas of small bowel obst ruction. Patient had extensive pneumatosis of the residual small bowel and the extensive scarring between loops of bowel. There was no evidence of bowel perforation. I could not detect any free air though a small amount of free air could have been missed. She states that she feels well. Her pain is controlled with present medications. She denies nausea. She has had some small amount of output of liquid stool through her stoma. Potassium 3.3, BUN 10, creatinine 0.7, calcium 5.7, albumin 2, white blood count 10.2, hemoglobin 11.3, hematocrit 35.3 Constitutional Vitals: Vital Signs Temp Pulse Resp BP Pulse Ox 97.5 F 91 H 18 129/74 93 12/01/20 08:00 12/01/20 08:00 12/01/20 08:00 12/01/20 08:00 12/01/20 08:00 Period Temp Pulse Resp BP Sys/Archuleta Pulse Ox Last 24 Hr 96.0 F-97.9 F 66-96 13-22 115-158/74-117 90-99 Intake and Output 11/30/20 12/01/20 12/01/20 21:59 05:59 13:59 Intake Total 3268 482 1240 Output Total 850 650 Balance 2418 -168 1240 Weight 257 lb 14.4 oz Intake & Output: Intake & Output 11/30/20 12/01/20 12/01/20 21:59 05:59 13:59 Intake Total 3268 482 1240 Output Total 850 650 Balance 2418 -168 1240 Weight 257 lb 14.4 oz Intake: IV 616 562 1328 Sodium Chloride 0.9% 1,000 ml @ 302 201 2059 150 mls/hr IV .Q6H40M MALENA Rx#: [id number] Calcium Gluconate 9.3 Meq In 140 Dextrose 5% in Water 50 ml @ 70 mls/hr IV Q8H [facility]ENA Rx#: [id number] Zosyn 3.375 gm In Dextrose 5% 50 100 in Water 50 ml @ 100 mls/hr IV Q6H MALENA Rx#:[id number] Oral 0 IV - Manual Only 2700 Output: Gastric Drainage 150 250 Left Nare 150 250 Urine Catheter Amount 600 Void Amount 250 Stool 150 Estimated Blood Loss 100 Other: Urine Appearance Clear Clear Clear Urine Color Bright Yellow Bright Yellow Dark Yellow Urine Odor Normal Normal Stool Size Small Stool Color Brown Stool Consistency Liquid Watery Head Head exam: Present atraumatic, normal inspection and normocephalic Eye Eye exam: Present EOMI and normal appearance Pupils: Present normal accommodation and PERRL ENT ENT exam: Present normal exam and normal oropharynx Neck Neck exam: Present full ROM; Absent tenderness Respiratory Respiratory exam: Present normal respiratory exam and CTAB; Absent rales, rhonchi and wheezes Cardiovascular Cardiovascular exam: Present RRR, +S1, +S2 and tachycardia; Absent JVD GI/Abdominal GI/Abdominal exam: Present soft, diminished bowel sounds and tenderness (Patient has tenderness in the mid abdomen but no guarding or rebound); Absent distended Additional comments: Stoma is functioning and is viable. There is some ecchymosis of her midline incision. She has hypoactive bowel sounds as anticipated Extremities Exam Extremities exam: Present full ROM, normal capillary refill, normal inspection, pedal edema and neurovascular intact Back Exam Back exam: Present full ROM; Absent tenderness Neurological Exam Neurological exam: Present alert, CN II-XII intact, normal gait, oriented X3 and reflexes normal Psychiatric Psychiatric exam: Present anxious, normal affect and normal mood Skin Skin exam: Present intact and normal color; Absent rash A/P Assessment and plan (1) Recurrent intestinal obstruction: Status: Acute (2) Intractable vomiting with nausea: Status: Acute (3) Pneumatosis intestinalis: Status: Acute (4) Diabetes mellitus: Status: Acute Qualifiers: Diabetes mellitus type: type 2 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 I will wait another day or so to monitor output through her ileostomy. If she should develop good output without evidence of obstruction will opt not to place line for TPN. Time Spent With Patient Time: Total time spent is greater than 50% in coordination of care (as do cumented) at patient's floor/unit and/or counseling patient:
[2020-12-01] MEDS ORDERED: CALCIUM GLUCONATE 4.65 MEQ/10 ML VIAL IV SCH (17:00)
[2020-12-01] MEDS: ALBUMIN HUMAN 25 GM/100 ML BAG IV SCH (17:10)
[2020-12-01] MEDS: BENZOCAINE 1 SPRAY BOTTLE TOPICAL PRN (21:20)
[2020-12-02] MEDS: ALBUMIN HUMAN 25 GM/100 ML BAG IV SCH ×5 (00:01→23:57)
[2020-12-02] MEDS: INSULIN LISPRO 1 UNIT/0.01 ML UNIT SQ SCH ×5 (00:10→23:54)
[2020-12-02] MEDS: HYDROmorphone 0.5 MG/0.5 ML SYRINGE IV PRN ×9 (00:14→22:24)
[2020-12-02] MEDS: CALCIUM GLUCONATE 9.3 MEQ in DEXTROSE 5% IN WATER 50 ML IV SCH ×3 (00:38→22:24)
[2020-12-02] MEDS: 0.9 % SODIUM CHLORIDE 1,000 ML IV SCH ×4 (01:06→20:42)
[2020-12-02] MEDS: PIPERACILLIN SODIUM/TAZOBACTAM 3.375 GM in DEXTROSE 5% IN WATER 50 ML IV SCH ×4 (02:02→20:43)
[2020-12-02 06:27] LABS: Basophils # (Auto) 0.01 K/mcL (0.00-0.20); Basophils % (Auto) 0.2 % (0.0-2.0); Eosinophils # (Auto) 0 K/mcL (0.00-0.70); Eosinophils % (Auto) 0 % (0.0-7.0); Hematocrit 30.9 % (36.0-48.0); Hemoglobin 9.6 g/dL (12.0-15.0); Lymphocytes # (Auto) 0.48 K/mcL (1.50-4.80); Lymphocytes % (Auto) 8.4 % (15.0-49.0); Mean Cell Volume 93.4 fL (80.0-100.0); Mean Corpuscular HGB Conc 31.1 g/dL (31.0-36.0); Monocytes # (Auto) 0.45 K/mcL (0.10-0.90); Monocytes % (Auto) 7.8 % (1.0-12.0); Neutrophils % (Auto) 83.6 % (38.0-78.0); Platelet Count 228 K/mcL (140-440); RBC 3.31 M/mcL (4.00-5.20); Red Cell Distribution Width 14.4 % (11.5-14.5); WBC 5.7 K/mcL (4.5-11.0)
[2020-12-02 07:01] LABS: ALT/SGPT 16 U/L (<40); AST/SGOT 12 U/L (<32); Albumin 2.5 gm/dL (3.2-5.2); Albumin/Globulin Ratio 1.3 (1.0-2.3); Alkaline Phosphatase 54 U/L (39-117); Bilirubin,Direct < 0.2 mg/dL (<0.3); Bilirubin,Total 0.3 mg/dL (0.1-1.0); Blood Urea Nitrogen 9 mg/dL (6-20); Calcium 6.8 mg/dL (8.6-10.4); Carbon Dioxide 31 mmol/L (22-30); Chloride 100 mmol/L (96-108); Globulin 1.9 gm/dL (2.2-3.7); Glomerular Filtration Rate 81; Glucose 155 mg/dL (70-105); Lactate Dehydrogenase 371 U/L (135-225); Phosphorous 4.4 mg/dL (2.5-4.5); Triglycerides 80 mg/dL (<150); Uric Acid 2.6 mg/dL (2.5-8.0)
[2020-12-02] MEDS: LEVOTHYROXINE 100 MCG VIAL IV SCH (07:29)
[2020-12-02] MEDS ORDERED: MAGNESIUM SULFATE 4 GM/100 ML BAG IV SCH (09:00)
[2020-12-02] MEDS: methylPREDNISolone SOD SUCC 125 MG/2 ML VIAL IV SCH ×2 (11:01→20:48)
[2020-12-02] MEDS: 0.9 % SODIUM CHLORIDE 10 ML SYRINGE IV SCH ×2 (11:05→20:49)
--- NOTE | 2020-12-02 11:20 | XRay Report ---
CLINICAL INFORMATION: FOLLOW -UP OF SMALL BOWEL OBSTRUCTION COMPARISON: 11/30/2020 FINDINGS: NG tube overlies the gastric antrum. The GI tract is almost totally decompressed with scattered amounts of gas seen within the stomach and small bowel. No gross free air. Central catheter tip overlies the right atrium near the tricuspid valve. IMPRESSION: Decompressed GI tract. No acute disease evident Interpreted and Authenticated by: All Lundberg 12/02/20
--- NOTE | 2020-12-02 11:25 | General Surgery Progress Note ---
SUBJECTIVE Subjective Patient information: Note initiated : 12/02/20 at 11:20 am Service Date, if different from initiated Date: [] Patient: Dayanna Guo 59 y/o F admitted on 11/27/20 for abdominal pain. Chief Complaint: [] Principal diagnosis: Small bowel obstruction Interval history: Patient is doing well. She states that she feels comfortable except for incisional pain. She does not have nausea. She does not have increased nasogastric output. Her stoma is putting out a small amount of liquid stool. Her stoma is functioning and is healthy. Incision looks good except for small amount of bloody drainage. BUN 9, creatinine 0.8, calcium 6.8, magnesium 1.8, white blood count 5.7, hemoglobin 9.6, hematocrit 30.9. Albumin has increased slightly Constitutional Vitals: Vital Signs Temp Pulse Resp BP Pulse Ox 97.6 F 67 18 160/92 99 12/02/20 06:31 12/02/20 06:31 12/02/20 06:31 12/02/20 06:31 12/02/20 06:31 Period Temp Pulse Resp BP Sys/Archuleta Pulse Ox Last 24 Hr 97.3 F-98.2 F 67-89 16-20 108-160/62-92 92-99 Intake and Output 12/01/20 12/02/20 12/02/20 21:59 05:59 13:59 Intake Total 890 1410 Output Total 400 1300 Balance 490 110 Weight 265 lb Intake & Output: Intake & Output 12/01/20 12/02/20 12/02/20 21:59 05:59 13:59 Intake Total 890 1410 Output Total 400 1300 Balance 490 110 Weight 265 lb Intake: IV 890 1320 Sodium Chloride 0.9% 1,000 ml @ 1000 150 mls/hr IV .Q6H40M [facility] Rx#: [id number] Calcium Gluconate 9.3 Meq In 70 70 Dextrose 5% in Water 50 ml @ 70 mls/hr IV Q8H [facility] Rx#: [id number] Zosyn 3.375 gm In Dextrose 5% 100 50 in Water 50 ml @ 100 mls/hr IV Q6H [facility]ENA Rx#:[id number] Potassium Chloride 40 Meq In 520 Dextrose 5% in Water 500 ml @ 130 mls/hr IV ONCE ONE Rx#: [id number] Oral 90 Output: Gastric Drainage 400 500 Left Nare 400 500 Urine Catheter Amount 800 Other: Urine Appearance Clear Urine Color Dark Yellow Head Head exam: Present atraumatic, normal inspection and normocephalic Eye Eye exam: Present EOMI and normal appearance Pupils: Present normal accommodation and PERRL ENT ENT exam: Present normal exam and normal oropharynx Neck Neck exam: Present full ROM; Absent tenderness Respiratory Respiratory exam: Present normal respiratory exam and CTAB; Absent rales, rhonchi and wheezes Cardiovascular Cardiovascular exam: Present RRR, +S1, +S2 and tachycardia; Absent JVD GI/Abdominal GI/Abdominal exam: Present soft, diminished bowel sounds and tenderness (Patient has tenderness in the mid abdomen but no guarding or rebound); Absent distended Additional comments: Stoma is functioning and is viable. There is some ecchymosis of her midline incision. 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
[2020-12-02] MEDS: MAGNESIUM SULFATE 4 GM/100 ML BAG IV SCH (14:25)
[2020-12-02] MEDS ORDERED: CALCIUM GLUCONATE 4.65 MEQ/10 ML VIAL IV SCH (21:00)
[2020-12-02] MEDS: BENZOCAINE 1 SPRAY BOTTLE TOPICAL PRN (22:33)
[2020-12-03] MEDS: HYDROmorphone 0.5 MG/0.5 ML SYRINGE IV PRN ×10 (00:33→23:58)
[2020-12-03] MEDS: PIPERACILLIN SODIUM/TAZOBACTAM 3.375 GM in DEXTROSE 5% IN WATER 50 ML IV SCH ×4 (02:02→17:23)
[2020-12-03] MEDS: BENZOCAINE 1 SPRAY BOTTLE TOPICAL PRN (02:04)
[2020-12-03] MEDS: 0.9 % SODIUM CHLORIDE 1,000 ML IV SCH ×6 (02:37→23:15)
[2020-12-03] MEDS: ALBUMIN HUMAN 25 GM/100 ML BAG IV SCH ×3 (05:33→17:21)
[2020-12-03] MEDS: INSULIN LISPRO 1 UNIT/0.01 ML UNIT SQ SCH ×3 (05:46→17:21)
[2020-12-03] MEDS: LEVOTHYROXINE 100 MCG VIAL IV SCH (07:08)
[2020-12-03] MEDS: MAGNESIUM SULFATE 4 GM/100 ML BAG IV SCH (07:08)
[2020-12-03 07:23] LABS: Basophils # (Auto) 0.01 K/mcL (0.00-0.20); Basophils % (Auto) 0.2 % (0.0-2.0); Eosinophils # (Auto) 0 K/mcL (0.00-0.70); Eosinophils % (Auto) 0 % (0.0-7.0); Hematocrit 29.4 % (36.0-48.0); Lymphocytes # (Auto) 0.63 K/mcL (1.50-4.80); Lymphocytes % (Auto) 10.4 % (15.0-49.0); Mean Cell Volume 94.5 fL (80.0-100.0); Mean Corpuscular HGB Conc 30.6 g/dL (31.0-36.0); Mean Platelet Volume 9.4 fL (7.4-10.4); Monocytes # (Auto) 0.52 K/mcL (0.10-0.90); Monocytes % (Auto) 8.6 % (1.0-12.0); Neutrophils % (Auto) 80.8 % (38.0-78.0); Platelet Count 217 K/mcL (140-440); RBC 3.11 M/mcL (4.00-5.20); Red Cell Distribution Width 14.6 % (11.5-14.5); WBC 6.1 K/mcL (4.5-11.0)
[2020-12-03 07:40] LABS: ALT/SGPT 13 U/L (<40); AST/SGOT 10 U/L (<32); Albumin 3.5 gm/dL (3.2-5.2); Albumin/Globulin Ratio 1.9 (1.0-2.3); Alkaline Phosphatase 51 U/L (39-117); Bilirubin,Direct < 0.2 mg/dL (<0.3); Bilirubin,Total 0.5 mg/dL (0.1-1.0); Blood Urea Nitrogen 9 mg/dL (6-20); Calcium 7.2 mg/dL (8.6-10.4); Carbon Dioxide 32 mmol/L (22-30); Chloride 95 mmol/L (96-108); Globulin 1.8 gm/dL (2.2-3.7); Glomerular Filtration Rate 95; Glucose 166 mg/dL (70-105); Lactate Dehydrogenase 300 U/L (135-225); Phosphorous 3.9 mg/dL (2.5-4.5); Triglycerides 96 mg/dL (<150); Uric Acid 2.4 mg/dL (2.5-8.0)
[2020-12-03] MEDS: 0.9 % SODIUM CHLORIDE 10 ML SYRINGE IV SCH ×2 (08:06→21:27)
[2020-12-03] MEDS: methylPREDNISolone SOD SUCC 125 MG/2 ML VIAL IV SCH ×2 (08:09→21:26)
[2020-12-03] MEDS: CALCIUM GLUCONATE 9.3 MEQ in DEXTROSE 5% IN WATER 50 ML IV SCH ×2 (11:10→23:14)
--- NOTE | 2020-12-03 11:56 | General Surgery Progress Note ---
SUBJECTIVE Subjective Patient information: Note initiated : 12/03/20 at 11:55 am Service Date, if different from initiated Date: [] Patient: Dayanna Guo 59 y/o F admitted on 11/27/20 for abdominal pain. Chief Complaint: [] Principal diagnosis: Small bowel obstruction Interval history: Patient continues to do well. She has minimal abdominal discomfort but she does complain of back and joint pains. She denies nausea. She has started to diurese well with albumin. Her serum albumin today was 3.5. She still has minimal output through her stoma. Serum potassium and magnesium are normal. Constitutional Vitals: Vital Signs Temp Pulse Resp BP Pulse Ox 97.2 F 68 18 175/91 96 12/03/20 11:43 12/03/20 11:43 12/03/20 11:43 12/03/20 11:43 12/03/20 11:43 Period Temp Pulse Resp BP Sys/Archuleta Pulse Ox Last 24 Hr 97.1 F-98.3 F 68-73 16-18 128-180/57-97 95-97 Intake and Output 12/02/20 12/03/20 12/03/20 21:59 05:59 13:59 Intake Total 1300 270 250 Output Total 1100 2000 1650 Balance 200 -1730 -1400 Weight 267 lb 6.4 oz Intake & Output: Intake & Output 12/02/20 12/03/20 12/03/20 21:59 05:59 13:59 Intake Total 1300 270 250 Output Total 1100 2000 1650 Balance 200 -1730 -1400 Weight 267 lb 6.4 oz Intake: IV 1300 220 250 Sodium Chloride 0.9% 1,000 ml @ 1000 150 mls/hr IV .Q6H40M MALENA Rx#: [id number] Calcium Gluconate 9.3 Meq In 70 Dextrose 5% in Water 50 ml @ 70 mls/hr IV Q12H [facility]ENA Rx#: [id number] Zosyn 3.375 gm In Dextrose 5% 100 50 50 in Water 50 ml @ 100 mls/hr IV Q6H [facility]ENA Rx#:[id number] Oral 50 Output: Gastric Drainage 700 600 Left Nare 700 600 Urine Catheter Amount 350 1400 1650 Stool 50 0 Other: Urine Appearance Clear Clear Clear Uretheral (Martinez) Clear Urine Color Dark Yellow Pale Pale Uretheral (Martinez) Bright Yellow Head Head exam: Present atraumatic, normal inspection and normocephalic Eye Eye exam: Present EOMI and normal appearance Pupils: Present normal accommodation and PERRL ENT ENT exam: Present normal exam and normal oropharynx Neck Neck exam: Present full ROM; Absent tenderness Respiratory Respiratory exam: Present normal respiratory exam and CTAB; Absent rales, rhonchi and wheezes Cardiovascular Cardiovascular exam: Present RRR, +S1, +S2 and tachycardia; Absent JVD GI/Abdominal GI/Abdominal exam: Present soft, diminished bowel sounds and tenderness (Patient has tenderness in the mid abdomen but no guarding or rebound); Absent distended Additional comments: Stoma is functioning and is viable. There is some ecchymosis of her midline incision. She has hypoactive bowel sounds as anticipated Extremities Exam Extremities exam: Present full ROM, normal capillary refill, normal inspection, pedal edema and neurovascular intact Neurological Exam Neurological exam: Present alert, CN II-XII intact, normal gait, oriented X3 and reflexes normal Psychiatric Psychiatric exam: Present anxious, normal affect and normal mood Skin Skin exam: Present intact and normal color; Absent rash A/P Assessment and plan (1) Recurrent intestinal obstruction: Status: Acute (2) Pneumatosis intestinalis: Status: Acute (3) Intractable vomiting with nausea: Status: Acute (4) Hypocalcemia: Status: Resolved (5) 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
[2020-12-03] MEDS: POLYETHYLENE GLYCOL 3350 17 GM PACKET PO SCH ×2 (14:11→21:27)
[2020-12-04] MEDS: INSULIN LISPRO 1 UNIT/0.01 ML UNIT SQ SCH ×5 (00:11→23:07)
[2020-12-04] MEDS: PIPERACILLIN SODIUM/TAZOBACTAM 3.375 GM in DEXTROSE 5% IN WATER 50 ML IV SCH ×5 (00:26→23:44)
[2020-12-04] MEDS: ALBUMIN HUMAN 25 GM/100 ML BAG IV SCH ×3 (01:03→13:40)
[2020-12-04] MEDS: HYDROmorphone 0.5 MG/0.5 ML SYRINGE IV PRN ×10 (02:04→22:33)
[2020-12-04] MEDS: 0.9 % SODIUM CHLORIDE 1,000 ML IV SCH (04:05)
[2020-12-04 06:20] LABS: Basophils # (Auto) 0.04 K/mcL (0.00-0.20); Basophils % (Auto) 0.5 % (0.0-2.0); Eosinophils # (Auto) 0 K/mcL (0.00-0.70); Eosinophils % (Auto) 0 % (0.0-7.0); Hematocrit 30.8 % (36.0-48.0); Hemoglobin 9.3 g/dL (12.0-15.0); Lymphocytes # (Auto) 0.51 K/mcL (1.50-4.80); Lymphocytes % (Auto) 5.9 % (15.0-49.0); Mean Cell Volume 95.4 fL (80.0-100.0); Mean Corpuscular HGB Conc 30.2 g/dL (31.0-36.0); Monocytes # (Auto) 0.36 K/mcL (0.10-0.90); Monocytes % (Auto) 4.1 % (1.0-12.0); Neutrophils % (Auto) 89.5 % (38.0-78.0); Platelet Count 232 K/mcL (140-440); RBC 3.23 M/mcL (4.00-5.20); Red Cell Distribution Width 14.3 % (11.5-14.5); WBC 8.7 K/mcL (4.5-11.0)
[2020-12-04 06:44] LABS: ALT/SGPT 15 U/L (<40); AST/SGOT 14 U/L (<32); Albumin/Globulin Ratio 2.9 (1.0-2.3); Alkaline Phosphatase 68 U/L (39-117); Bilirubin,Direct < 0.2 mg/dL (<0.3); Bilirubin,Total 0.6 mg/dL (0.1-1.0); Blood Urea Nitrogen 8 mg/dL (6-20); Calcium 7.3 mg/dL (8.6-10.4); Carbon Dioxide 36 mmol/L (22-30); Chloride 98 mmol/L (96-108); Globulin 1.4 gm/dL (2.2-3.7); Glomerular Filtration Rate 95; Glucose 177 mg/dL (70-105); Lactate Dehydrogenase 301 U/L (135-225); Phosphorous 2.7 mg/dL (2.5-4.5); Triglycerides 116 mg/dL (<150)
[2020-12-04] MEDS: MAGNESIUM SULFATE 4 GM/100 ML BAG IV SCH (07:25)
[2020-12-04] MEDS: LEVOTHYROXINE 100 MCG VIAL IV SCH (07:26)
[2020-12-04] MEDS: 0.9 % SODIUM CHLORIDE 10 ML SYRINGE IV SCH ×2 (08:57→20:00)
[2020-12-04] MEDS: methylPREDNISolone SOD SUCC 125 MG/2 ML VIAL IV SCH ×2 (09:06→20:24)
[2020-12-04] MEDS: POLYETHYLENE GLYCOL 3350 17 GM PACKET PO SCH ×3 (09:06→20:23)
[2020-12-04] MEDS ORDERED: CYCLOBENZAPRINE 10 MG TABLET PO PRN (10:58)
[2020-12-04] MEDS ORDERED: PYRIDOSTIGMINE BROMIDE 10 MG/2 ML ML IM SCH (11:00)
--- NOTE | 2020-12-04 11:05 | General Surgery Progress Note ---
SUBJECTIVE Subjective Patient information: Note initiated : 12/04/20 at 10:55 am Service Date, if different from initiated Date: [] Patient: Dayanna Guo 59 y/o F admitted on 11/27/20 for abdominal pain. Chief Complaint: [] Principal diagnosis: Small bowel obstruction Interval history: Patient feels better. She has had her nasogastric tube clamped for 24 hours and has not had any nausea. She has started having mode rate amount of output through her stoma. Her morning x-rays do not show any gastric or small bowel distention. Her pain is adequately controlled. Potassium 3.4 magnesium 1.6 calcium 7.3, white count 8.7, hemoglobin 9.3, hematocrit 30.8. Constitutional Vitals: Vital Signs Temp Pulse Resp BP Pulse Ox 97.2 F 73 18 157/50 96 12/04/20 06:29 12/04/20 06:29 12/04/20 06:29 12/04/20 06:29 12/04/20 06:29 Period Temp Pulse Resp BP Sys/Archuleta Pulse Ox Last 24 Hr 97.1 F-98.2 F 68-84 16-20 152-182/50-101 90-96 Intake and Output 12/03/20 12/04/20 12/04/20 21:59 05:59 13:59 Intake Total 550 1700 510 Output Total 550 3050 1450 Balance 0 -1350 -940 Weight 265 lb Intake & Output: Intake & Output 12/03/20 12/04/20 12/04/20 21:59 05:59 13:59 Intake Total 550 1700 510 Output Total 550 3050 1450 Balance 0 -1350 -940 Weight 265 lb Intake: IV 150 1220 150 Sodium Chloride 0.9% 1,000 ml @ 1000 150 mls/hr IV .Q6H40M [facility] Rx#: [id number] Calcium Gluconate 9.3 Meq In 70 Dextrose 5% in Water 50 ml @ 70 mls/hr IV Q12H [facility]ENA Rx#: [id number] Zosyn 3.375 gm In Dextrose 5% 50 50 50 in Water 50 ml @ 100 mls/hr IV Q6H [facility]ENA Rx#:[id number] Oral 400 480 360 Output: Gastric Drainage 150 Left Nare 150 Urine Catheter Amount 550 2650 1450 Uretheral (Martinez) 500 Stool 250 Other: Urine Appearance Clear Clear Clear Uretheral (Martinez) Clear Clear Urine Color Straw Straw Pale Uretheral (Martinez) Straw Pale Urine Odor Normal Normal Uretheral (Martinez) Normal Normal Stool Size Smear Stool Color Brown Brown Green Stool Consistency Liquid Liquid Watery Watery Head Head exam: Present atraumatic, normal inspection and normocephalic Eye Eye exam: Present EOMI and normal appearance Pupils: Present normal accommodation and PERRL ENT ENT exam: Present normal exam and normal oropharynx Neck Neck exam: Present full ROM; Absent tenderness Respiratory Respiratory exam: Present normal respiratory exam and CTAB; Absent rales, rhonchi and wheezes Cardiovascular Cardiovascular exam: Present RRR, +S1, +S2 and tachycardia; Absent JVD GI/Abdominal GI/Abdominal exam: Present soft, diminished bowel sounds and tenderness (Patient has tenderness in the mid abdomen but no guarding or rebound); Absent distended Additional comments: Stoma is functioning and is viable. There is some ecchymosis of her midline incision. 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: Status: Acute (2) Pneumatosis intestinalis: Status: Acute (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: Status: Acute (4) Chronic, continuous use of opioids: Status: Chronic (5) Myasthenia gravis: Status: Chronic (6) Chronic intestinal pseudo-obstruction: Status: Chronic (7) LA (obstructive sleep apnea): Status: Chronic (8) Hypertension: Status: Chronic Qualifiers: Hypertension type: essential hypertension Qualified Code(s): I10 - Essential (primary) hypertension Narrative A/P Narrative: Discontinue nasogastric tube Advance to full liquid diet Lasix 40 mg IV every 12 hours x2 days Replace magnesium and potassium phosphate Time Spent With Patient Time: Total time spent is greater than 50% in coordination of care (as documented) at patient's floor/unit and/or counseling patient:
[2020-12-04] MEDS: CALCIUM GLUCONATE 9.3 MEQ in DEXTROSE 5% IN WATER 50 ML IV SCH ×2 (11:37→22:33)
[2020-12-04] MEDS ORDERED: MAGNESIUM SULFATE 4 GM/100 ML BAG IV ONE (12:00)
--- NOTE | 2020-12-04 14:18 | XRay Report ---
CLINICAL INFORMATION: FOLLOW -UP OF SMALL BOWEL OBSTRUCTION COMPARISON: None. FINDINGS: NG tube overlies the gastric antrum. GI tract is almost completely decompressed. Minimal gas in stomach and scattered throughout the small bowel. No free air, soft tissue mass organomegaly. IMPRESSION: Complete decompression GI tract. Negative exam Interpreted and Authenticated by: All Lundberg 12/04/20
[2020-12-04] MEDS: POTASSIUM PHOSPHATE 40 MEQ in DEXTROSE 5% IN WATER 500 ML IV SCH ×2 (14:45→19:13)
[2020-12-04] MEDS: CALCITRIOL 0.25 MCG CAPSULE PO SCH ×2 (15:28→20:23)
[2020-12-04] MEDS: PYRIDOSTIGMINE 60 MG TABLET PO SCH ×2 (15:28→20:46)
[2020-12-04] MEDS: FUROSEMIDE 40 MG/4 ML VIAL IV SCH (16:58)
[2020-12-04] MEDS: DULoxetine 30 MG CAPSULE PO SCH (20:23)
[2020-12-04] MEDS: MAGNESIUM OXIDE 400 MG TABLET PO SCH (20:23)
[2020-12-04] MEDS: GABAPENTIN 300 MG CAPSULE PO SCH (20:23)
[2020-12-05] MEDS: HYDROmorphone 0.5 MG/0.5 ML SYRINGE IV PRN ×8 (00:35→21:58)
[2020-12-05] MEDS: PIPERACILLIN SODIUM/TAZOBACTAM 3.375 GM in DEXTROSE 5% IN WATER 50 ML IV SCH ×3 (05:00→17:27)
[2020-12-05 05:44] LABS: Basophils # (Auto) 0.03 K/mcL (0.00-0.20); Basophils % (Auto) 0.4 % (0.0-2.0); Eosinophils # (Auto) 0 K/mcL (0.00-0.70); Eosinophils % (Auto) 0 % (0.0-7.0); Hematocrit 31.9 % (36.0-48.0); Lymphocytes # (Auto) 0.59 K/mcL (1.50-4.80); Lymphocytes % (Auto) 8.5 % (15.0-49.0); Mean Cell Volume 92.7 fL (80.0-100.0); Mean Corpuscular HGB Conc 31.3 g/dL (31.0-36.0); Mean Platelet Volume 9.2 fL (7.4-10.4); Monocytes # (Auto) 0.46 K/mcL (0.10-0.90); Monocytes % (Auto) 6.6 % (1.0-12.0); Neutrophils % (Auto) 84.5 % (38.0-78.0); Platelet Count 269 K/mcL (140-440); RBC 3.44 M/mcL (4.00-5.20); Red Cell Distribution Width 14.1 % (11.5-14.5); WBC 6.9 K/mcL (4.5-11.0)
[2020-12-05] MEDS: INSULIN LISPRO 1 UNIT/0.01 ML UNIT SQ SCH ×4 (05:59→20:55)
[2020-12-05] MEDS: MAGNESIUM SULFATE 4 GM/100 ML BAG IV SCH (06:00)
[2020-12-05 06:04] LABS: ALT/SGPT 18 U/L (<40); AST/SGOT 14 U/L (<32); Albumin 3.8 gm/dL (3.2-5.2); Albumin/Globulin Ratio 2.2 (1.0-2.3); Alkaline Phosphatase 71 U/L (39-117); Bilirubin,Direct < 0.2 mg/dL (<0.3); Bilirubin,Total 0.6 mg/dL (0.1-1.0); Blood Urea Nitrogen 8 mg/dL (6-20); Calcium 7.3 mg/dL (8.6-10.4); Carbon Dioxide 40 mmol/L (22-30); Chloride 92 mmol/L (96-108); Globulin 1.7 gm/dL (2.2-3.7); Glomerular Filtration Rate 95; Glucose 245 mg/dL (70-105); Lactate Dehydrogenase 317 U/L (135-225); Triglycerides 152 mg/dL (<150); Uric Acid 1.6 mg/dL (2.5-8.0)
[2020-12-05] MEDS: MAGNESIUM OXIDE 400 MG TABLET PO SCH ×2 (08:17→20:40)
[2020-12-05] MEDS: DULoxetine 30 MG CAPSULE PO SCH ×2 (08:18→20:40)
[2020-12-05] MEDS: CALCITRIOL 0.25 MCG CAPSULE PO SCH ×3 (08:18→20:39)
[2020-12-05] MEDS: FUROSEMIDE 40 MG/4 ML VIAL IV SCH ×2 (08:18→15:18)
[2020-12-05] MEDS: GABAPENTIN 300 MG CAPSULE PO SCH ×2 (08:18→20:40)
[2020-12-05] MEDS: methylPREDNISolone SOD SUCC 125 MG/2 ML VIAL IV SCH ×2 (08:18→20:42)
[2020-12-05] MEDS: LEVOTHYROXINE 100 MCG VIAL IV SCH (08:18)
[2020-12-05] MEDS: PYRIDOSTIGMINE 60 MG TABLET PO SCH ×3 (08:19→20:40)
[2020-12-05] MEDS: 0.9 % SODIUM CHLORIDE 10 ML SYRINGE IV SCH ×2 (08:19→20:00)
[2020-12-05] MEDS: POLYETHYLENE GLYCOL 3350 17 GM PACKET PO SCH ×3 (08:20→20:42)
[2020-12-05] MEDS: CALCIUM GLUCONATE 9.3 MEQ in DEXTROSE 5% IN WATER 50 ML IV SCH ×2 (10:14→23:21)
--- NOTE | 2020-12-05 13:35 | General Surgery Progress Note ---
SUBJECTIVE Subjective Patient information: Note initiated : 12/05/20 at 1:31 pm Service Date, if different from initiated Date: [] Patient: Dayanna Guo 59 y/o F admitted on 11/27/20 for abdominal pain. Chief Complaint: [] Principal diagnosis: Small bowel obstruction Interval history: Patient continues to improve. Her pain is much better. She is tolerating GI soft diet without nausea vomiting or abdominal pain. Her incision is functioning normal. She has good stoma function. She has diuresed vigorously during the night but she still has large volume pleural space anasarca. Constitutional Vitals: Vital Signs Temp Pulse Resp BP Pulse Ox 96.9 F L 78 18 153/91 94 12/05/20 11:37 12/05/20 11:37 12/05/20 11:37 12/05/20 11:37 12/05/20 11:37 Period Temp Pulse Resp BP Sys/Archuleta Pulse Ox Last 24 Hr 96.9 F-97.6 F 66-91 18-20 135-153/75-93 94-98 Intake and Output 12/04/20 12/05/20 12/05/20 21:59 05:59 13:59 Intake Total 1579 1399.0909 1400 Output Total 4600 2800 1201 Balance -3021 -1400.9091 199 Weight 254 lb Intake & Output: Intake & Output 12/04/20 12/05/20 12/05/20 21:59 05:59 13:59 Intake Total 1579 1399.0909 1400 Output Total 4600 2800 1201 Balance -3021 -1400.9091 199 Weight 254 lb Intake: IV 246 182.4413 100 Calcium Gluconate 9.3 Meq In 70 70 Dextrose 5% in Water 50 ml @ 70 mls/hr IV Q12H MALENA Rx#: [id number] Zosyn 3.375 gm In Dextrose 5% 100 100 in Water 50 ml @ 100 mls/hr IV Q6H MALENA Rx#:[id number] Potassium Phosphate 40 Meq In 407 562.2675 Dextrose 5% in Water 500 ml @ 127.273 mls/hr IV Q4H MALENA Rx#: [id number] Oral 987 756 4110 Output: Urine Catheter Amount 4500 2600 1200 # of times incontinent of urine 1 Stool 100 200 Other: Meal Lunch Breakfast Percent of Meal Consumed 75% 100% Feeding Ability Independent Urine Appearance Clear Clear Clear Uretheral (Martinez) Clear Clear Urine Color Straw Straw Pale Uretheral (Martinez) Straw Pale Urine Odor Normal Normal Normal Stool Size Smear Smear Small Stool Color Brown Brown Brown Stool Consistency Liquid Liquid Liquid Watery Watery # Voids 1 Head Head exam: Present atraumatic, normal inspection and normocephalic Eye Eye exam: Present EOMI and normal appearance Pupils: Present normal accommodation and PERRL ENT ENT exam: Present normal exam and normal oropharynx Neck Neck exam: Present full ROM; Absent tenderness Respiratory Respiratory exam: Present normal respiratory exam and CTAB; Absent rales, rhonchi and wheezes Cardiovascular Cardiovascular exam: Present RRR, +S1, +S2 and tachycardia; Absent JVD GI/Abdominal GI/Abdominal exam: Present soft, diminished bowel sounds and tenderness (Patient has tenderness in the mid abdomen but no guarding or rebound); Absent distended Additional comments: Stoma is functioning and is viable. There is some ecchymosis of her midline incision. She has hypoactive bowel sounds as anticipated Extremities Exam Extremities exam: Present full ROM, normal capillary refill, normal inspection, pedal edema and neurovascular intact Back Exam Back exam: Present full ROM; Absent tenderness Neurological Exam Neurological exam: Present alert, CN II-XII intact, normal gait, oriented X3 and reflexes normal Psychiatric Psychiatric exam: Present anxious, normal affect and normal mood Skin Skin exam: Present intact and normal color; Absent rash A/P Assessment and plan (1) Recurrent intestinal obstruction: Status: Acute (2) Pneumatosis intestinalis: Status: Acute (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: Status: Acute (4) 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: Status: Acute (5) Myasthenia gravis: Status: Chronic (6) Hypertension: Status: Chronic Qualifiers: Hypertension type: essential hypertension Qualified Code(s): I10 - Essential (primary) hypertension (7) Chronic use of steroids: Status: Chronic Comment: for myasthenia gravis; 10+ years Narrative A/P Narrative: Continue soft diet Continue Lasix IV Maintain Martinez catheter for urine volume increase Probable discharge home tomorrow Time Spent With Patient Time: Total time spent is greater than 50% in coordination of care (as documented) at patient's floor/unit and/or counseling patient:
[2020-12-05] MEDS ORDERED: oxyCODONE HCL 5 MG TABLET PO PRN (13:37)
[2020-12-05] MEDS ORDERED: HEPARIN SODIUM,PORCINE/PF 500 UNIT/5 ML SYRINGE IV PRN (13:47)
--- NOTE | 2020-12-05 15:21 | Operative Note ---
DATE OF OPERATION: 11/30/2020 PREOPERATIVE DIAGNOSIS: Small bowel obstruction with pneumatosis intestinalis. POSTOPERATIVE DIAGNOSES: 1. Small bowel obstruction with pneumatosis intestinalis. 2. 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 PROCEDURE: Exploratory laparotomy with total intraabdominal adhesiolysis. SURGEON: Bertha Currie M.D. FINDINGS: A total intra-abdominal adhesions with hostile abdomen and multiple areas of small-bowel obstruction; pneumatosis of about 50% of the small bowel. There was no evidence of small bowel ischemia and there was no perforation. DESCRIPTION OF PROCEDURE: Under general anesthesia, the patient's abdomen was prepped and draped in a sterile field. The stoma was sutured shut with 2-0 silk. A -drape was placed over the entire abdominal wall. The old midline incision was opened. A small enterotomy was made in the small bowel that was immediately under the peritoneum. This was isolated and closed with running 2-0 Monocryl. Extensive adhesions were noted and there were extensive areas of pneumatosis, but there was no evidence of ischemia of the bowel. There was a thick, almost inflammatory peel covering the bowel and there was air bubbling under this inflammatory peel. Careful dissection was carried out to isolate the bowel. It took about three and a half hours to separate all of the adhesions until I was able to follow the bowel from the ligament of Treitz to the stoma. The previously noted enterotomy was closed with a TA 30 stapler. Copious irrigation was carried out. Inspection of the bowel revealed no evidence of ischemia with good blood supply. Further irrigation was carried out. The bowel was placed back in the peritoneal cavity. The fascia was closed with a running #1 Prolene. Subcutaneous tissue was closed with 2-0 Vicryl. Skin was closed with kori. The midline incision was opened. The stoma was opened and the stoma appliance was placed. The patient tolerated the procedure well. She was awakened uneventfully and transferred to the postanesthetic care unit in satisfactory condition. LCS:donovan Job ID: [id number] Doc ID: [id number] Bertha Currie M.D.
[2020-12-05] MEDS: POTASSIUM CHLORIDE 20 MEQ TABLET PO SCH (17:27)
[2020-12-06] MEDS: PIPERACILLIN SODIUM/TAZOBACTAM 3.375 GM in DEXTROSE 5% IN WATER 50 ML IV SCH ×3 (00:26→11:33)
[2020-12-06] MEDS: HYDROmorphone 0.5 MG/0.5 ML SYRINGE IV PRN ×4 (01:11→11:34)
[2020-12-06] MEDS: MAGNESIUM SULFATE 4 GM/100 ML BAG IV SCH (07:06)
[2020-12-06] MEDS: POTASSIUM CHLORIDE 20 MEQ TABLET PO SCH (07:07)
[2020-12-06] MEDS: FUROSEMIDE 40 MG/4 ML VIAL IV SCH (07:07)
[2020-12-06] MEDS: LEVOTHYROXINE 100 MCG VIAL IV SCH (07:07)
[2020-12-06] MEDS: MAGNESIUM OXIDE 400 MG TABLET PO SCH (09:03)
[2020-12-06] MEDS: methylPREDNISolone SOD SUCC 125 MG/2 ML VIAL IV SCH (09:03)
[2020-12-06] MEDS: CALCITRIOL 0.25 MCG CAPSULE PO SCH (09:03)
[2020-12-06] MEDS: GABAPENTIN 300 MG CAPSULE PO SCH (09:03)
[2020-12-06] MEDS: DULoxetine 30 MG CAPSULE PO SCH (09:03)
[2020-12-06] MEDS: INSULIN LISPRO 1 UNIT/0.01 ML UNIT SQ SCH ×2 (09:03→11:43)
[2020-12-06] MEDS: 0.9 % SODIUM CHLORIDE 10 ML SYRINGE IV SCH (09:04)
[2020-12-06] MEDS: PYRIDOSTIGMINE 60 MG TABLET PO SCH (09:04)
[2020-12-06] MEDS: POLYETHYLENE GLYCOL 3350 17 GM PACKET PO SCH (09:04)
[2020-12-06] MEDS: CALCIUM GLUCONATE 9.3 MEQ in DEXTROSE 5% IN WATER 50 ML IV SCH (10:07)
[2020-12-06] MEDS ORDERED: ACETAMINOPHEN 500 MG TABLET PO PRN (12:18)
--- NOTE | 2020-12-06 12:55 | Discharge Summary ---
Discharge Provider Provider Patient information: Note initiated : 12/06/20 at 12:45 pm Service Date, if different from initiated Date: [] Patient: Dayanna Guo 59 y/o F admitted on 11/27/20 for abdominal pain. Chief Complaint: [] Date of admission: 11/27/20 22:23 Discharge date: 12/06/20 Primary care physician: Douglas Haque Admitting clinician: Bertha Currie Attending physician on admission: Bertha Currie Consults: 11/27/20 Consult to Physician [CONS] Stat Comment: Consulting Provider: Calvin Sadler Reason For Exam: Physician to Consult Attending physician on discharge: Bertha Currie Discharging clinician: Bertha Currie COURSE Hospital Course Hospital course: 59-year-old female admitted for treatment of recurrent small bowel obstruction. She has a long history of recurrent intestinal pseudoobstruction and has had multiple admissions for pseudoobstruction and/or adhesive disease. She was discharged 1 day prior to readmission after being treated for massively dilated stomach and small bowel. She was treated with nasogastric decompression, regular therapy, MiraLAX. She was hospitalized for 3 days and tolerated regular diet at the time of discharge. After getting home she developed increasing abdominal pain with distention and intractable nausea and vomiting. She was seen in the emergency room but had continued severe nausea and vomiting. X-rays suggested persistent partial intestinal obstruction. Nasogastric tube was inserted. She was restarted on Regonol therapy and had initial good results with some output through her stoma however she had more discomfort on the and did not improve. On the a CT scan was done and it showed significant pneumatosis intestinalis in the mid abdomen with free air. Patient was operated on and was found to have a hostile abdomen with total intraperitoneal adhesiolysis involving all of her small bowel her residual omentum. She was explored and was found to have severe intestinal adhesions with pneumatosis involving about 40 to 50% of her small bowel. This appeared to be benign pneumatosis. A lengthy adhesiolysis was carried out until all the bowel was freed up. Postprocedure she has gradually improved. She has an output from through her stoma on the first day postoperatively and this has progressed. She is now having multiple regular bowel movements per day and has been advanced to a soft diet without difficulty. X-rays done 2 days ago showed no significant gaseous distention of her small bowel. The patient has had severe hypoalbuminemia due to long-term GI disturbance. She developed anasarca which was treated with IV albumin infusion and after her albumin was above 3 she was started on Lasix and has lost almost 30 pounds due to fluid mobilization. Her anasarca is improved. Patient had electrolyte imbalance which was corrected with intravenous and oral replacement. Discharge diagnosis: Recurrent small bowel obstruction Secondary discharge diagnosis: Intestinal pseudoobstruction Small bowel obstruction due to total intraperitoneal adhesions Diabetes mellitus type 2 Myasthenia gravis Obstructive sleep apnea Hypertension Anasarca due to hypoproteinemia Reason for admission: Small bowel obstruction Procedures: Exploratory laparotomy with total intraperitoneal adhesiolysis Pertinent studies/significant findings: CT of abdomen and pelvis with IV contrast Complications: None Time Spent with Patient Time attestation: Total time spent providing and/or coordinating discharge services: Physical Examination Vital Signs Vital signs: Temp Pulse Resp BP Pulse Ox 97.7 F 77 18 132/79 96 12/06/20 07:31 12/06/20 07:12/06/20 07:31 12/06/20 07:31 12/06/20 08:14 General physical appearance General physical exam: well developed, well nourished, moderate distress, moderate pain, chronically ill and obese Eyes Eye exam: PERRL and normal ocular movement; negative pale and icteric ENT ENT exam: normal mucosa, no hearing loss, no congestion and nasal discharge Head Head exam IM: Present atraumatic, normal inspection and normocephalic Neck Neck exam: no masses, no bruits, trachea midline, no lymphadenopathy and no venous distension Cardiovascular Cardiovascular exam IM: Present +S1, +S2 and tachycardia; Absent JVD and RRR Respiratory Respiratory exam: normal expansion, normal respiratory effort, clear to percussion and clear to auscultation Abdomen Abdomen: Present tender, bowel sounds (Hyperactive bowel sounds), surgical scars (Healed midline surgical incision) and distended; Absent guarding Hernia: Present none Integumentary Integumentary: Present no rash, no growths and no abnormal pigmentation Neurologic Neurologic: Present normal coordination and normal sensation Musculoskeletal Musculoskeletal: Present normal gait and normal posture Psychiatric Psychiatric: Present oriented to time, oriented to person, oriented to place, speech is normal and memory intact Discharge Plan Patient/Caregiver Discharge Instructions Activity: increase activity as tolerated Diet: Regular Diet Prescriptions: New pyridostigmine bromide [Mestinon] 60 mg tablet 60 mg PO TID Qty: 90 RF: 3 Continued pyridostigmine bromide 5 mg/mL solution 10 mg IM Q6H Qty: 240 RF: 5 syringe with needle [BD Luer-Archie Syringe] 3 mL 25 gauge x 1" syringe See Rx Instructions .ROUTE .COMPLEX Qty: 100 RF: 4 (DME) filter needles 19 x 1 1/2" 19 x 1 1/2 " needle See Rx Instructions .ROUTE .MEDSUPPLY Qty: 100 RF: 1 promethazine 25 mg tablet 25 mg PO Q6HP PRN (Reason: Nausea) Qty: 60 RF: 3 duloxetine 30 MG capsule 30 mg PO BID RF: 0 levothyroxine 125 MCG tablet 250 mcg PO QAMAC RF: 0 calcitriol 0.25 MCG capsule See Rx Instructions .ROUTE .COMPLEX RF: 0 insulin glargine 1 UNIT/0.01 ML unit 10 unit SQ BID RF: 0 Accu-Chek 1 EACH strip 1 each FS ACHS RF: 0 cyclobenzaprine 10 MG tablet 10 mg PO BIDP PRN (Reason: Spasms) RF: 0 magnesium oxide 250 MG tablet 500 mg PO BID RF: 0 promethazine 25 MG suppository 25 mg NH Q6HP PRN (Reason: nausea vomitting) RF: 0 ondansetron 4 MG tablet 4 mg SL Q4HP PRN (Reason: Nausea) RF: 0 metformin 500 MG tablet 500 mg PO BID RF: 0 acetaminophen 325 MG tablet 500 mg PO Q6HP PRN (Reason: Pain/Fever > 101) RF: 0 prednisone 20 MG tablet 20 mg PO QAMCC RF: 0 gabapentin 300 mg capsule 300 mg PO BID RF: 0 Follow Up Plan Follow up with: Bertha Currie MD [Physician] - 12/15/20 Douglas Haque MD [Primary Care Provider] - Patient Disposition: Home, Self-Care Prognosis: Good Rehab Potential: Good I certify that the patient requires SNF services: No Overall status at discharge: patient is progressing back to baseline Discharge Orders: Discharge Order (Routine); Ordered 12/06/20 Ordered By: Bertha uCrrie Pending Pending Pending: Resuscitation Status Full Code Diet GI Soft/Transitional Start SatDec 05 0800 Benzocaine (Benzocaine 1 Reed Bottle) 1 spray TOPICAL 3-4XD PRN PRN Reason: Pain Stop: 12/06/20 20:37 Last Admin: 12/03/20 02:04 Dose: 1 spray Documented by: Admin: 12/02/20 22:33 Dose: 1 spray Documented by: Admin: 12/01/20 21:20 Dose: 1 spray Documented by: ETHAN Calcitriol (Calcitriol 0.25 Mcg Capsule) 0 mcg PO TID [facility] Last Admin: 12/06/20 09:03 Dose: 0.25 mcg Documented by: Admin: 12/05/20 20:39 Dose: 0.25 mcg Documented by: Admin: 12/05/20 15:18 Dose: 0.25 mcg Documented by: Admin: 12/05/20 08:18 Dose: 0.25 mcg Documented by: Admin: 12/04/20 20:23 Dose: 0.25 mcg Documented by: ANNE-MARIE Admin: 12/04/20 15:28 Dose: 0.25 mcg Documented by: KYRIE Cyclobenzaprine HCl (Cyclobenzaprine 10 Mg Tablet) 10 mg PO BIDP PRN PRN Reason: Muscle Spasm Last Admin: 12/05/20 09:37 Dose: 10 mg Documented by: RAGHU Diagnostic Test (Pha) (Accu-Chek 1 Each Strip) 1 each FS ACHS [facility] Last Admin: 12/06/20 11:33 Dose: 1 each Documented by: Admin: 12/06/20 07:06 Dose: 1 each Documented by: Admin: 12/05/20 20:49 Dose: 1 each Documented by: Admin: 12/05/20 17:26 Dose: 1 each Documented by: RAGHU Duloxetine HCl (Duloxetine 30 Mg Capsule) 30 mg PO BID [facility] Last Admin: 12/06/20 09:03 Dose: 30 mg Documented by: Admin: 12/05/20 20:40 Dose: 30 mg Documented by: Admin: 12/05/20 08:18 Dose: 30 mg Documented by: Admin: 12/04/20 20:23 Dose: 30 mg Documented by: ANNE-MARIE Gabapentin (Gabapentin 300 Mg Capsule) 300 mg PO BID [facility] Last Admin: 12/06/20 09:03 Dose: 300 mg Documented by: Admin: 12/05/20 20:40 Dose: 300 mg Documented by: Admin: 12/05/20 08:18 Dose: 300 mg Documented by: Admin: 12/04/20 20:23 Dose: 300 mg Documented by: ANNE-MARIE Heparin Sodium (Porcine) (Heparin Flush 10 Units/Ml 5 Ml Syringe) 5 ml IV Q12 [facility] Admin: 12/06/20 09:04 Dose: 5 ml Documented by: Admin: 12/05/20 20:42 Dose: 5 ml Documented by: Admin: 12/05/20 08:20 Dose: 5 ml Documented by: Admin: 12/04/20 19:59 Dose: Not Given Documented by: ANNE-MARIE Admin: 12/04/20 08:57 Dose: Not Given Documented by: Admin: 12/03/20 21:27 Dose: Not Given Documented by: ANNE-MARIE Admin: 12/03/20 08:06 Dose: Not Given Documented by: Admin: 12/02/20 20:49 Dose: Not Given Documented by: Admin: 12/02/20 12:42 Dose: Not Given Documented by: Admin: 12/01/20 21:08 Dose: Not Given Documented by: Admin: 12/01/20 09:14 Dose: Not Given Documented by: Admin: 11/30/20 21:43 Dose: Not Given Documented by: BRITTNI Hydromorphone HCl (Hydromorphone 0.5 Mg/0.5 Ml Syringe) 0.5 mg IV Q2HP PRN; Protocol PRN Reason: Per Pain Protocol Last Admin: 12/06/20 11:34 Dose: 0.5 mg Documented by: Admin: 12/06/20 07:08 Dose: 0.5 mg Documented by: Admin: 12/06/20 04:04 Dose: 0.5 mg Documented by: Admin: 12/06/20 01:11 Dose: 0.5 mg Documented by: Admin: 12/05/20 21:58 Dose: 0.5 mg Documented by: Admin: 12/05/20 20:00 Dose: 0.5 mg Documented by: Admin: 12/05/20 17:28 Dose: 0.5 mg Documented by: Admin: 12/05/20 11:40 Dose: 0.5 mg Documented by: Admin: 12/05/20 08:40 Dose: 0.5 mg Documented by: Admin: 12/05/20 04:57 Dose: 0.5 mg Documented by: ANNE-MARIE Admin: 12/05/20 02:39 Dose: 0.5 mg Documented by: Admin: 12/05/20 00:35 Dose: 0.5 mg Documented by: ANNE-MARIE Admin: 12/04/20 22:33 Dose: 0.5 mg Documented by: ANNE-MARIE Admin: 12/04/20 20:31 Dose: 0.5 mg Documented by: ANNE-MARIE Admin: 12/04/20 17:43 Dose: 0.5 mg Documented by: Admin: 12/04/20 15:28 Dose: 0.5 mg Documented by: Admin: 12/04/20 13:21 Dose: 0.5 mg Documented by: Admin: 12/04/20 10:51 Dose: 0.5 mg Documented by: Admin: 12/04/20 08:05 Dose: 0.5 mg Documented by: Admin: 12/04/20 06:05 Dose: 0.5 mg Documented by: ANNE-MARIE Admin: 12/04/20 04:05 Dose: 0.5 mg Documented by: ANNE-MARIE Admin: 12/04/20 02:04 Dose: 0.5 mg Documented by: ANNE-MARIE Admin: 12/03/20 23:58 Dose: 0.5 mg Documented by: ANNE-MARIE Admin: 12/03/20 21:26 Dose: 0.5 mg Documented by: ANNE-MARIE Admin: 12/03/20 16:39 Dose: 0.5 mg Documented by: Admin: 12/03/20 14:11 Dose: 0.5 mg Documented by: Admin: 12/03/20 11:57 Dose: 0.5 mg Documented by: Admin: 12/03/20 09:20 Dose: 0.5 mg Documented by: Admin: 12/03/20 07:08 Dose: 0.5 mg Documented by: Admin: 12/03/20 04:53 Dose: 0.5 mg Documented by: Admin: 12/03/20 02:37 Dose: 0.5 mg Documented by: Admin: 12/03/20 00:33 Dose: 0.5 mg Documented by: Admin: 12/02/20 22:24 Dose: 0.5 mg Documented by: Admin: 12/02/20 19:46 Dose: 0.5 mg Documented by: Admin: 12/02/20 15:14 Dose: 0.5 mg Documented by: Admin: 12/02/20 13:03 Dose: 0.5 mg Documented by: Admin: 12/02/20 11:03 Dose: 0.5 mg Documented by: Admin: 12/02/20 07:26 Dose: 0.5 mg Documented by: Admin: 12/02/20 05:00 Dose: 0.5 mg Documented by: Admin: 12/02/20 02:37 Dose: 0.5 mg Documented by: Admin: 12/02/20 00:14 Dose: 0.5 mg Documented by: Admin: 12/01/20 21:52 Dose: 0.5 mg Documented by: Admin: 12/01/20 19:43 Dose: 0.5 mg Documented by: Admin: 12/01/20 17:10 Dose: 0.5 mg Documented by: Admin: 12/01/20 14:50 Dose: 0.5 mg Documented by: Admin: 12/01/20 12:47 Dose: 0.5 mg Documented by: Admin: 12/01/20 10:31 Dose: 0.5 mg Documented by: Admin: 12/01/20 07:18 Dose: 0.5 mg Documented by: Admin: 12/01/20 05:21 Dose: 0.5 mg Documented by: Admin: 12/01/20 03:06 Dose: 0.5 mg Documented by: Admin: 12/01/20 01:09 Dose: 0.5 mg Documented by: Admin: 11/30/20 23:17 Dose: 0.5 mg Documented by: Admin: 11/30/20 20:52 Dose: 0.5 mg Documented by: BRITTNI Piperacillin Sod/Tazobactam (Sod 3.375 gm/ Dextrose) 50 mls @ 100 mls/hr IV Q6H [facility]; Protocol Last Admin: 12/06/20 11:33 Dose: 100 mls/hr Documented by: Infusion: 12/06/20 06:51 Dose: 0 mls/hr Documented by: Admin: 12/06/20 06:21 Dose: 100 mls/hr Documented by: Infusion: 12/06/20 00:56 Dose: 100 mls/hr Documented by: Admin: 12/06/20 00:26 Dose: 100 mls/hr Documented by: Infusion: 12/05/20 17:57 Dose: 0 mls/hr Documented by: Admin: 12/05/20 17:27 Dose: 100 mls/hr Documented by: Infusion: 12/05/20 12:09 Dose: 0 mls/hr Documented by: Admin: 12/05/20 11:39 Dose: 100 mls/hr Documented by: Infusion: 12/05/20 05:45 Dose: 0 mls/hr Documented by: ANNE-MARIE Admin: 12/05/20 05:00 Dose: 100 mls/hr Documented by: ANNE-MARIE Infusion: 12/05/20 00:20 Dose: 0 mls/hr Documented by: ANNE-MARIE Admin: 12/04/20 23:44 Dose: 100 mls/hr Documented by: Infusion: 12/04/20 18:34 Dose: 0 mls/hr Documented by: Admin: 12/04/20 17:43 Dose: 100 mls/hr Documented by: Infusion: 12/04/20 14:24 Dose: 0 mls/hr Documented by: Admin: 12/04/20 12:53 Dose: 100 mls/hr Documented by: Infusion: 12/04/20 06:54 Dose: 0 mls/hr Documented by: Admin: 12/04/20 05:48 Dose: 100 mls/hr Documented by: ANNE-MARIE Infusion: 12/04/20 01:03 Dose: 0 mls/hr Documented by: Admin: 12/04/20 00:26 Dose: 100 mls/hr Documented by: ANNE-MARIE Infusion: 12/03/20 18:03 Dose: 0 mls/hr Documented by: Admin: 12/03/20 17:23 Dose: 100 mls/hr Documented by: Infusion: 12/03/20 11:40 Dose: 0 mls/hr Documented by: Admin: 12/03/20 11:10 Dose: 100 mls/hr Documented by: Infusion: 12/03/20 08:40 Dose: 0 mls/hr Documented by: Admin: 12/03/20 08:09 Dose: 100 mls/hr Documented by: Infusion: 12/03/20 03:00 Dose: 0 mls/hr Documented by: Admin: 12/03/20 02:02 Dose: 100 mls/hr Documented by: Infusion: 12/02/20 21:20 Dose: 0 mls/hr Documented by: Admin: 12/02/20 20:43 Dose: 100 mls/hr Documented by: Infusion: 12/02/20 14:05 Dose: 0 mls/hr Documented by: Admin: 12/02/20 13:35 Dose: 100 mls/hr Documented by: Infusion: 12/02/20 09:22 Dose: 100 mls/hr Documented by: Admin: 12/02/20 08:52 Dose: 100 mls/hr Documented by: Infusion: 12/02/20 02:38 Dose: 0 mls/hr Documented by: Admin: 12/02/20 02:02 Dose: 100 mls/hr Documented by: Infusion: 12/01/20 20:15 Dose: 0 mls/hr Documented by: Admin: 12/01/20 19:44 Dose: 100 mls/hr Documented by: Infusion: 12/01/20 15:19 Dose: 0 mls/hr Documented by: Admin: 12/01/20 14:49 Dose: 100 mls/hr Documented by: Infusion: 12/01/20 09:14 Dose: 100 mls/hr Documented by: Admin: 12/01/20 08:32 Dose: 100 mls/hr Documented by: Infusion: 12/01/20 06:49 Dose: 100 mls/hr Documented by: Admin: 12/01/20 01:50 Dose: 100 mls/hr Documented by: BRITTNI Calcium Gluconate 9.3 meq/ (Dextrose) 70 mls @ 70 mls/hr IV Q12H MALENA Aguilar Admin: 12/06/20 10:07 Dose: 70 mls/hr Documented by: Infusion: 12/06/20 00:23 Dose: 0 mls/hr Documented by: Admin: 12/05/20 23:21 Dose: 70 mls/hr Documented by: Infusion: 12/05/20 11:14 Dose: 0 mls/hr Documented by: Admin: 12/05/20 10:14 Dose: 70 mls/hr Documented by: Infusion: 12/04/20 23:35 Dose: 0 mls/hr Documented by: ANNE-MARIE Admin: 12/04/20 22:33 Dose: 70 mls/hr Documented by: ANNE-MARIE Infusion: 12/04/20 15:07 Dose: 0 mls/hr Documented by: Admin: 12/04/20 11:37 Dose: 70 mls/hr Documented by: Infusion: 12/04/20 00:20 Dose: 0 mls/hr Documented by: ANNE-MARIE Admin: 12/03/20 23:14 Dose: 70 mls/hr Documented by: ANNE-MARIE Infusion: 12/03/20 12:20 Dose: 0 mls/hr Documented by: Admin: 12/03/20 11:10 Dose: 70 mls/hr Documented by: Infusion: 12/02/20 23:25 Dose: 0 mls/hr Documented by: Admin: 12/02/20 22:24 Dose: 70 mls/hr Documented by: ETHAN Magnesium Sulfate (Magnesium Sulfate) 4 gm in 100 mls @ 25 mls/hr IV Q24H [facility] Last Admin: 12/06/20 07:06 Dose: 25 mls/hr Documented by: Infusion: 12/05/20 10:00 Dose: 0 mls/hr Documented by: Admin: 12/05/20 06:00 Dose: 25 mls/hr Documented by: ANNE-MARIE Infusion: 12/04/20 15:08 Dose: 0 mls/hr Documented by: Admin: 12/04/20 07:25 Dose: 25 mls/hr Documented by: Infusion: 12/03/20 11:17 Dose: 0 mls/hr Documented by: Admin: 12/03/20 07:08 Dose: 25 mls/hr Documented by: Infusion: 12/02/20 18:25 Dose: 25 mls/hr Documented by: Admin: 12/02/20 14:25 Dose: 25 mls/hr Documented by: REHAN Insulin Human Lispro (Insulin Lispro 1 Unit/0.01 Ml Unit) 0 unit SQ [facility]; Protocol Last Admin: 12/06/20 11:43 Dose: 4 unit Documented by: Admin: 12/06/20 09:03 Dose: 8 unit Documented by: Admin: 12/05/20 20:55 Dose: 6 unit Documented by: Admin: 12/05/20 17:26 Dose: 10 unit Documented by: RAGHU Levothyroxine Sodium (Levothyroxine 100 Mcg Vial) [facility] Admin: 12/06/20 07:07 Dose: 125 mcg Documented by: Admin: 12/05/20 08:18 Dose: 125 mcg Documented by: Admin: 12/04/20 07:26 Dose: 125 mcg Documented by: Admin: 12/03/20 07:08 Dose: 125 mcg Documented by: Admin: 12/02/20 07:29 Dose: 125 mcg Documented by: Admin: 12/01/20 07:20 Dose: 125 mcg Documented by: CAREY Magnesium Oxide (Magnesium Oxide 400 Mg Tablet) 400 mg PO BID [facility] Admin: 12/06/20 09:03 Dose: 400 mg Documented by: Admin: 12/05/20 20:40 Dose: 400 mg Documented by: Admin: 12/05/20 08:17 Dose: 400 mg Documented by: Admin: 12/04/20 20:23 Dose: 400 mg Documented by: ANNE-MARIE Methylprednisolone Sodium Succinate (Methylprednisolone Sod Succ 125 Mg/2 Ml Vial) 62.5 mg IV Q12 [facility] Last Admin: 12/06/20 09:03 Dose: 62.5 mg Documented by: Admin: 12/05/20 20:42 Dose: 62.5 mg Documented by: Admin: 12/05/20 08:18 Dose: 62.5 mg Documented by: Admin: 12/04/20 20:24 Dose: 62.5 mg Documented by: ANNE-MARIE Admin: 12/04/20 09:06 Dose: 62.5 mg Documented by: Admin: 12/03/20 21:26 Dose: 62.5 mg Documented by: ANNE-MARIE Admin: 12/03/20 08:09 Dose: 62.5 mg Documented by: Admin: 12/02/20 20:48 Dose: 62.5 mg Documented by: Admin: 12/02/20 11:01 Dose: 62.5 mg Documented by: Admin: 12/01/20 21:17 Dose: 62.5 mg Documented by: Admin: 12/01/20 08:30 Dose: 62.5 mg Documented by: Admin: 11/30/20 21:43 Dose: 62.5 mg Documented by: BRITTNI Oxycodone HCl (Oxycodone Hcl 5 Mg Tablet) 10 mg PO Q4HP PRN; Protocol PRN Reason: Per Pain Protocol Last Admin: 12/05/20 13:48 Dose: 10 mg Documented by: RAGHU Polyethylene Glycol (Polyethylene Glycol 3350 17 Gm Packet) 17 gm PO TID [facility] Admin: 12/06/20 09:04 Dose: 17 gm Documented by: Admin: 12/05/20 20:42 Dose: 17 gm Documented by: Admin: 12/05/20 15:18 Dose: 17 gm Documented by: Admin: 12/05/20 08:20 Dose: 17 gm Documented by: Admin: 12/04/20 20:23 Dose: 17 gm Documented by: ANNE-MARIE Admin: 12/04/20 15:28 Dose: 17 gm Documented by: Admin: 12/04/20 09:06 Dose: 17 gm Documented by: Admin: 12/03/20 21:27 Dose: 17 gm Documented by: ANNE-MARIE Admin: 12/03/20 14:11 Dose: 17 gm Documented by: DARIO Pyridostigmine [place] (Pyridostigmine 60 Mg Tablet) 60 mg PO TID [facility] Admin: 12/06/20 09:04 Dose: 60 mg Documented by: Admin: 12/05/20 20:40 Dose: 60 mg Documented by: Admin: 12/05/20 15:19 Dose: 60 mg Documented by: Admin: 12/05/20 08:19 Dose: 60 mg Documented by: Admin: 12/04/20 20:46 Dose: 60 mg Documented by: ANNE-MARIE Admin: 12/04/20 15:28 Dose: 60 mg Documented by: KYRIE Sodium Chloride (0.9 % Sodium Chloride 10 Ml Syringe) 10 ml IV Q12 [facility] Admin: 12/06/20 09:04 Dose: 10 ml Documented by: Admin: 12/05/20 20:00 Dose: 10 ml Documented by: Admin: 12/05/20 08:19 Dose: 10 ml Documented by: Admin: 12/04/20 20:00 Dose: Not Given Documented by: ANNE-MARIE Admin: 12/04/20 08:57 Dose: Not Given Documented by: Admin: 12/03/20 21:27 Dose: Not Given Documented by: ANNE-MARIE Admin: 12/03/20 08:06 Dose: Not Given Documented by: Admin: 12/02/20 20:49 Dose: Not Given Documented by: Admin: 12/02/20 11:05 Dose: Not Given Documented by: Admin: 12/01/20 21:08 Dose: Not Given Documented by: Admin: 12/01/20 09:13 Dose: Not Given Documented by: Admin: 11/30/20 21:43 Dose: Not Given Documented by: BRITTNI Shift Summary 12/05/20 16:10 Shift Summary by Alice Nugent Addendum entered by Alice Nugent R.N. 12/05/20 17:28: Medicated an additional time with Dilaudid at 1727. Patient up to side of bed an additional time. Original Note: Patient A&Ox4, VSS except for HTN SBP in 140s-150s. Patient was upgraded to GI Soft diet this morning, tolerating well with no complaints of nausea or cramping. Patient has been denying to get out of bed this shift. She was able to stand at bedside while bath and linen change performed. Patient also did not want SCDs on as they have caused her some bruising. IV to RW SL. Port to Left Chest WNL, SL. Ileostomy output brown liquid stool. Marina, wound care nurse, assessed patient ostomy and performed dressing change to midline incision. Patient due for one last dose of Lasix tomorrow morning, after which Dr. Currie wants the Martinez discontinued. Martinez with a lot of output, yellow clear pale. Patient given Dilaudid x2, and new PO Oxycodone 10mg x1 for pain. Patient did not like the Oxycodone and does not want it again. Patient also given Flexeril x1 per request. Patient to discontinue tomorrow. Will update at bedside. Initialized on 12/05/20 16:10 - END OF NOTE
== END 2020-12-06 14:03 | disposition home or self-care (01) | DRG 336 ==
LOC: ED 14:38 → MEDSUR 22:23
PROVIDERS: ADMIT Family Medicine Adult Medicine; ATTEND Family Medicine Adult Medicine

== ENCOUNTER 2020-12-13 19:01 | Inpatient (IN) ==
[2020-12-13] MEDS ORDERED: IOPAMIDOL 100 ML BOTTLE IV ONE (19:02)
[2020-12-13] MEDS ORDERED: HYDROmorphone 1 MG/ML SYRINGE IV ONE (19:46)
[2020-12-13] MEDS ORDERED: ONDANSETRON 4 MG/2 ML VIAL IV ONE (19:46)
[2020-12-13] MEDS ORDERED: 0.9 % SODIUM CHLORIDE 1,000 ML IV ONE ×2 (19:46→21:07)
[2020-12-13 20:39] LABS: Basophils # (Auto) 0.08 K/mcL (0.00-0.20); Basophils % (Auto) 0.6 % (0.0-2.0); Eosinophils # (Auto) 0.06 K/mcL (0.00-0.70); Eosinophils % (Auto) 0.5 % (0.0-7.0); Hematocrit 39.3 % (36.0-48.0); Hemoglobin 12.2 g/dL (12.0-15.0); Lymphocytes # (Auto) 2.09 K/mcL (1.50-4.80); Lymphocytes % (Auto) 15.8 % (15.0-49.0); Mean Cell Volume 92.9 fL (80.0-100.0); Mean Platelet Volume 9.6 fL (7.4-10.4); Monocytes # (Auto) 1.01 K/mcL (0.10-0.90); Monocytes % (Auto) 7.6 % (1.0-12.0); Neutrophils % (Auto) 75.5 % (38.0-78.0); Platelet Count 478 K/mcL (140-440); RBC 4.23 M/mcL (4.00-5.20); Red Cell Distribution Width 14.3 % (11.5-14.5); WBC 13.2 K/mcL (4.5-11.0)
[2020-12-13 21:00] LABS: ALT/SGPT 12 U/L (<40); AST/SGOT 10 U/L (<32); Albumin 3.9 gm/dL (3.2-5.2); Albumin/Globulin Ratio 1.3 (1.0-2.3); Alkaline Phosphatase 118 U/L (39-117); Bilirubin,Total 0.2 mg/dL (0.1-1.0); Blood Urea Nitrogen 26 mg/dL (6-20); Calcium 8.8 mg/dL (8.6-10.4); Carbon Dioxide 30 mmol/L (22-30); Chloride 91 mmol/L (96-108); Globulin 3.1 gm/dL (2.2-3.7); Glomerular Filtration Rate 81; Glucose 196 mg/dL (70-105)
[2020-12-13] MEDS ORDERED: HYDROmorphone 0.5 MG/0.5 ML SYRINGE IV ONE (21:50)
[2020-12-13 22:49] LABS: Appearance,Urine Hazy (Clear); Bilirubin,Urine Negative (Negative); Color,Urine Red; Culture Indicated,Urine No; Glucose,Urine (UA) Negative (Negative); Ketones,Urine Negative (Negative); Leukocyte Esterase,Urine Negative /ug (Negative); Nitrate,Urine Negative (Negative); PH,Urine 5.5 (5.0-9.0); Urine Blood Large ery/mcL (Negative); Urine RBC > 182 /hpf (0-1); Urine Squamous Epithelial Cell 0 /hpf (0-4); Urine WBC 0 /hpf (0-4); Urobilinogen,Urine Normal
[2020-12-13] MEDS: 0.9 % SODIUM CHLORIDE 1,000 ML IV SCH (23:20)
[2020-12-13] MEDS: HYDROmorphone 0.5 MG/0.5 ML SYRINGE IV PRN (23:24)
[2020-12-13] MEDS: ONDANSETRON 4 MG/2 ML VIAL IV PRN (23:24)
--- NOTE | 2020-12-14 00:08 | Emergency Department Note ---
Abdominal Pain HPI General Chief Complaint: Abdominal Pain Stated Complaint: abd pain Time Seen by Provider: 12/13/20 19:39 Source: patient Mode of arrival: EMS Limitations: physical limitation History of Present Illness HPI Narrative: Narrative: 60-year-old female presents emergency department concerned that she may have a bowel obstruction. She states that she had her 14th abdominal surgery here just [address] Parviz Currie. Today she developed pain which began at around 1430. She had nausea and vomiting. Her pain level was 7 on a 0-10. It was a constant pain. Nothing made it better or worse. She took acetaminophen with no relief. Her last meal was at noon. The pain does not radiate. It feels like her prior small bowel obstructions. Related Data Home Medications Medication Instructions Recorded Confirmed duloxetine 30 mg PO BID 11/30/16 12/06/20 levothyroxine 250 mcg PO QAMAC 08/20/17 12/06/20 calcitriol See Rx Instructions .ROUTE .COMPLEX 02/11/19 12/06/20 insulin glargine 10 unit SQ BID 09/30/19 12/06/20 cyclobenzaprine 10 mg PO BIDP PRN 12/13/19 12/06/20 magnesium oxide 500 mg PO BID 12/13/19 12/06/20 ondansetron 4 mg SL Q4HP PRN 12/24/19 12/06/20 promethazine 25 mg GA Q6HP PRN 12/24/19 12/06/20 metformin 500 mg PO BID 07/12/20 12/06/20 acetaminophen 500 mg PO Q6HP PRN 09/14/20 12/06/20 gabapentin 300 mg PO BID 09/14/20 12/06/20 prednisone 20 mg PO [facility] 09/14/20 12/06/20 Previous Rx's Medication Instructions Recorded Accu-Chek 1 each FS ACHS strip 12/03/19 pyridostigmine bromide 5 mg/mL 10 mg IM Q6H #240 ml 01/04/20 injection solution syringe with needle 3 mL 25 gauge See Rx Instructions .ROUTE 08/31/20 x 1" .COMPLEX #100 unspecified filter needles 19 x 1 1/2" #100 each 10/19/20 promethazine 25 mg tablet 25 mg PO Q6HP PRN #60 tab 11/24/20 pyridostigmine bromide [Mestinon] 60 mg PO TID #90 tab 12/06/20 furosemide 20 mg tablet 20 mg PO QDAY #30 tab 12/08/20 Allergies Allergy/AdvReac Type Severity Reaction Status Date / Time Sulfa (Sulfonamide Allergy Severe Anaphylaxis Verified 12/06/20 15:42 Antibiotics) adhesive tape AdvReac Mild Blister Verified 12/06/20 15:42 metoclopramide [From Reglan] AdvReac Mild Anxiety Verified 12/06/20 15:42 steri strips AdvReac Mild Blister Uncoded 12/02/19 06:48 Review of Systems ROS ROS Narrative: Narrative: Constitutional: Denies fever and chills Eyes: Denies eye pain ENT ED: Denies throat pain, congestion and rhinorrhea Cardiovascular: Denies chest pain Respiratory: Denies shortness of breath Gastrointestinal: Reports abdominal pain (Her abdomen is distended/bloated.), nausea and vomiting; Denies diarrhea Genitourinary: Denies dysuria Musculoskeletal: Denies back pain Integumentary: Denies rash Neurological: Denies headache Psychiatric: Denies anxiety and depression Hematological/Lymphatic: Denies easy bleeding PFSH Narrative Patient History Narrative: Narrative: Past medical history includes myasthenia gravis, sarcoidosis, polyglandular autoimmune disorder. Medical/Surgical/Family History All Active Problems (Updated 12/13/20 @ 22:18 by Mac Jacques MD) Right knee sprain (Acute) Pneumatosis intestinalis (Acute) Small bowel ischemia (Acute) Recurrent intestinal obstruction (Acute) Intractable abdominal pain (Acute) Intractable vomiting with nausea (Acute) Diabetes mellitus (Acute) Acute UTI (Acute) Hypercalcemia (Acute) COVID-19 (Acute) Acute kidney injury (Acute) Hypercalcemia (Acute) Hyponatremia (Acute) Elevated serum creatinine (Acute) Low back pain (Acute) Partial small bowel obstruction (Acute) Nausea and vomiting (Acute) Hypokalemia (Acute) Hyponatremia (Acute) Elevated LFTs (Acute) Small bowel obstruction (Acute) Dehydration (Acute) Primary chronic pseudo-obstruction of small intestine (Acute) UTI (urinary tract infection) (Acute) Hypocalcemia (Acute) Nausea & vomiting (Acute) Severe sepsis (Acute) 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 (Acute) Chronic, continuous use of opioids (Chronic) Myasthenia gravis (Chronic) Chronic intestinal pseudo-obstruction (Chronic) Recurrent intestinal obstruction (Chronic) Diabetes mellitus type 2, uncontrolled (Chronic) LA (obstructive sleep apnea) (Chronic) Hypertension (Chronic) Obesity, Class II, BMI 35-39.9 (Chronic) Low blood magnesium level (Chronic) Abdominal pain (Chronic) Chronic use of steroids (Chronic) Abnormal liver enzymes (Chronic) Hypothyroidism (Chronic) Sarcoidosis (Chronic) Polyglandular autoimmune syndrome (Chronic) Recurrent abdominal pain (Chronic) Medical History (Updated 12/13/20 @ 22:18 by Mac Jacques MD) Abdominal pain Abdominal pain Abdominal wound dehiscence Abnormal liver enzymes Achalasia and cardiospasm Acute respiratory insufficiency Adverse reaction to drug Anaphylaxis Bowel obstruction 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 Chronic use of steroids for myasthenia gravis; 10+ years Chronic, continuous use of opioids Constipation due to neurogenic bowel Constipation due to pain medication therapy Dehydration Dehydration Diabetes mellitus type 2, uncontrolled Encounter for care related to Port-a-Cath Fecal impaction Foot sprain Hypercalcemia Hypertension Hypocalcemia Hyponatremia Hypothyroidism Ileus Infiltrate of lung present on imaging of chest Intractable vomiting Lactic acid acidosis Low blood magnesium level Myasthenia gravis Nausea Nausea & vomiting Nausea & vomiting Nausea and vomiting Obesity, Class II, BMI 35-39.9 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 Pseudoobstruction of colon Pyelonephritis Recurrent abdominal pain Recurrent intestinal obstruction many recurrences; many surgical interventions Sarcoidosis Sepsis Sepsis associated hypotension Sepsis with acute hypoxic respiratory failure Severe sepsis Sigmoid volvulus Sinus tachycardia Sinus tachycardia Small bowel obstruction Small bowel obstruction Small bowel obstruction Small bowel obstruction Small bowel obstruction Small bowel obstruction Small bowel obstruction due to adhesions Small bowel obstruction due to postoperative adhesions Small bowel obstruction, partial Supraventricular tachycardia UTI (urinary tract infection) UTI (urinary tract infection) Volvulus of sigmoid colon Surgical History (Updated 12/06/20 @ 14:47 by Jayla Hay CMA) History of exploratory laparotomy 10/17/2017-with adhesiolysis History of exploratory laparotomy 12/01/2017-with adhesiolysis History of exploratory laparotomy 07/18/2018 History of exploratory laparotomy 08/10/2018-Exploratory laparotomy with small bowel adhesiolysis and incisional hernia repair with mesh graft History of exploratory laparotomy 11/30/2020-with total intraabdominal adhesiolysis S/P ileostomy Family History Father CAD (coronary artery disease) Mother CAD (coronary artery disease) Grandfather CVA (cerebral vascular accident) Grandmother CVA (cerebral vascular accident) Social History Smoking Status: Never smoker Alcohol Intake Frequency: does not drink Substance Use: does not use Exam Narrative Narrative: Narrative: General Limitations: physical limitation General appearance: Present alert, in distress (Moderate distress.) and obese; Absent appears intoxicated Head Head: Present atraumatic and normocephalic Eye Eye: Present PERRL and EOMI; Absent scleral icterus ENT ENT: Present normal oropharynx and mucous membranes moist Neck Neck: Present normal inspection and trachea midline Chest Chest: Present normal inspection Respiratory Respiratory: Present normal lung sounds bilaterally Cardiovascular Cardiovascular: Present tachycardia Adbominal Abdominal: Present distention, tenderness and other (Tympanic) Rectal Rectal: Present deferred Extremities Extremities: Present normal inspection and full ROM; Absent pedal edema Back Back: Present normal inspection; Absent tenderness Neurological Neurological: Present alert and oriented X3 Psychiatric Psychiatric: Present normal affect and normal mood Skin Skin: Present warm (WNL) and dry Course Reevaluation(s) Reevaluation #1: After time I reevaluated the patient and asked her how her pain was doing. She said her pain was significantly reduced but she would appreciate another 0.5 mg of Dilaudid. I asked about nausea and she said the nausea had resolved. Consultations Consultation #1: After the CT scan results came back showing findings consistent with small bowel obstruction I consulted Dr. Parviz Currie. He requested that I in I order an NG tube, IV fluids, opiates, and have the patient admitted to the hospital. He will see her in the morning. Vital Signs Vital signs: Vital Signs Temperature 99.1 F H 12/13/20 19:02 Pulse Rate 130 H 12/13/20 19:02 Respiratory Rate 18 12/13/20 19:02 Blood Pressure 156/92 12/13/20 19:02 Pulse Oximetry (%) 96 12/13/20 19:02 Temperature 99.1 F H 12/13/20 19:02 Pulse Rate 116 H 12/13/20 22:07 Respiratory Rate 18 12/13/20 19:02 Blood Pressure 140/103 12/13/20 22:01 Pulse Oximetry (%) 79 L 12/13/20 22:07 MDM MDM Narrative Medical decision making narrative: Narrative: Middle-aged female with multiple prior episodes of small bowel obstruction and multiple previous abdominal surgeries presents emerged department complaining of small bowel obstruction symptoms once again. Differential diagnosis includes acute small bowel obstruction, ileus, large bowel obstruction, volvulus CT scan was obtained and revealed findings consistent with small bowel obstruction with transition point within the parastomal hernia within the right lower quadrant. The white count was elevated at 13.2. Glucose was elevated at 196. This is an area that had had recent surgical attention by Dr. Currie. Patient felt better after the Dilaudid. Patient was administered IV fluids as well. Per Dr. Parviz Currie the patient had orders written for admission and will be on the [employer] service. Lab Data Result diagrams: 12/13/20 20:12 12/13/20 20:12 Labs: Lab Results 12/13/20 12/13/20 12/13/20 Range/Units 20:12 20:12 20:12 WBC 13.2 H (4.5-11.0) K/mcL RBC 4.23 (4.00-5.20) M/mcL Hgb 12.2 (12.0-15.0) g/dL Hct 39.3 (36.0-48.0) % MCV 92.9 (80.0-100.0) fL MCH 28.8 (26.0-34.0) pg MCHC 31.0 (31.0-36.0) g/dL RDW 14.3 (11.5-14.5) % Plt Count 478 H (140-440) K/mcL MPV 9.6 (7.4-10.4) fL Neut % (Auto) 75.5 (38.0-78.0) % Lymph % (Auto) 15.8 (15.0-49.0) % [place] % (Auto) 7.6 (1.0-12.0) % Eos % (Auto) 0.5 (0.0-7.0) % Baso % (Auto) 0.6 (0.0-2.0) % Lymph # (Auto) 2.09 (1.50-4.80) K/mcL [place] # (Auto) 1.01 H (0.10-0.90) K/mcL Eos # (Auto) 0.06 (0.00-0.70) K/mcL Baso # (Auto) 0.08 (0.00-0.20) K/mcL Absolute Neutrophils 9.99 H (1.80-8.00) K/mcL VBG Lactic Acid 2.8 H (0.5-2.0) mmol/L Sodium 134 (133-145) mmol/L Potassium 4.1 (3.3-5.1) mmol/L Chloride 91 L (96-108) mmol/L Carbon Dioxide 30 (22-30) mmol/L Anion Gap 13.0 (8.0-16.0) BUN 26 H (6-20) mg/dL Creatinine 0.8 (0.6-1.1) mg/dL GFR Calculation 81 Glucose 196 H (70-105) mg/dL Calcium 8.8 (8.6-10.4) mg/dL Total Bilirubin 0.2 (0.1-1.0) mg/dL AST 10 (<32) U/L ALT 12 (<40) U/L Alkaline Phosphatase 118 H (39-117) U/L Total Protein 7.0 (5.9-8.4) gm/dL Albumin 3.9 (3.2-5.2) gm/dL Globulin 3.1 (2.2-3.7) gm/dL Albumin/Globulin Ratio 1.3 (1.0-2.3) Lipase 19 (7-60) U/L Urine Color Urine Appearance (Clear) Urine pH (5.0-9.0) Ur Specific [place] (1.000-1.035) Urine Protein (Negative) mg/dL Urine Glucose (UA) (Negative) mg/dL Urine Ketones (Negative) mg/dL Urine Occult Blood (Negative) donnie/mcL Urine Nitrate (Negative) Urine Bilirubin (Negative) mg/dL Urine Urobilinogen mg/dL Ur Leukocyte Esterase (Negative) /ug Urine RBC (0-1) /hpf Urine WBC (0-4) /hpf Ur Squamous Epith Cells (0-4) /hpf Urine Bacteria (0) /hpf Ur Culture Indicated? 12/13/20 Range/Units 21:51 WBC (4.5-11.0) K/mcL RBC (4.00-5.20) M/mcL Hgb (12.0-15.0) g/dL Hct (36.0-48.0) % MCV (80.0-100.0) fL MCH (26.0-34.0) pg MCHC (31.0-36.0) g/dL RDW (11.5-14.5) % Plt Count (140-440) K/mcL MPV (7.4-10.4) fL Neut % (Auto) (38.0-78.0) % Lymph % (Auto) (15.0-49.0) % [place] % (Auto) (1.0-12.0) % Eos % (Auto) (0.0-7.0) % Baso % (Auto) (0.0-2.0) % Lymph # (Auto) (1.50-4.80) K/mcL [place] # (Auto) (0.10-0.90) K/mcL Eos # (Auto) (0.00-0.70) K/mcL Baso # (Auto) (0.00-0.20) K/mcL Absolute Neutrophils (1.80-8.00) K/mcL VBG Lactic Acid (0.5-2.0) mmol/L Sodium (133-145) mmol/L Potassium (3.3-5.1) mmol/L Chloride (96-108) mmol/L Carbon Dioxide (22-30) mmol/L Anion Gap (8.0-16.0) BUN (6-20) mg/dL Creatinine (0.6-1.1) mg/dL GFR Calculation Glucose (70-105) mg/dL Calcium (8.6-10.4) mg/dL Total Bilirubin (0.1-1.0) mg/dL AST (<32) U/L ALT (<40) U/L Alkaline Phosphatase (39-117) U/L Total Protein (5.9-8.4) gm/dL Albumin (3.2-5.2) gm/dL Globulin (2.2-3.7) gm/dL Albumin/Globulin Ratio (1.0-2.3) Lipase (7-60) U/L Urine Color Red Urine Appearance Hazy A (Clear) Urine pH 5.5 (5.0-9.0) Ur Specific [place] 1.010 (1.000-1.035) Urine Protein 100 mg/dl A (Negative) mg/dL Urine Glucose (UA) Negative (Negative) mg/dL Urine Ketones Negative (Negative) mg/dL Urine Occult Blood Large A (Negative) donnie/mcL Urine Nitrate Negative (Negative) Urine Bilirubin Negative (Negative) mg/dL Urine Urobilinogen Normal mg/dL Ur Leukocyte Esterase Negative (Negative) /ug Urine RBC > 182 H (0-1) /hpf Urine WBC 0 (0-4) /hpf Ur Squamous Epith Cells 0 (0-4) /hpf Urine Bacteria None (0) /hpf Ur Culture Indicated? No ED POC Tests ED POC Tests: MARA - SARS Antigen Negative Discharge Plan Patient/Caregiver Discharge Instructions Pt seen by [employer] SERVICE/PA only: No Clinical Impression: Small bowel obstruction Activity: other Patient Disposition: Still a Patient Condition: Fair Discharge Date/Time: 12/13/20 23:08
[2020-12-14] MEDS: 0.9 % SODIUM CHLORIDE 1,000 ML IV SCH ×5 (03:31→19:16)
[2020-12-14] MEDS: HYDROmorphone 0.5 MG/0.5 ML SYRINGE IV PRN ×6 (03:45→21:49)
[2020-12-14] MEDS: 0.9 % SODIUM CHLORIDE 10 ML SYRINGE IV SCH ×3 (05:34→21:48)
[2020-12-14] MEDS: ONDANSETRON 4 MG/2 ML VIAL IV PRN ×3 (05:36→18:03)
--- NOTE | 2020-12-14 08:05 | Cat Scan Report ---
History: Abdominal pain and small bowel obstruction TECHNIQUE: The patient was imaged following injection of intravenous nonionic contrast scanning during the portal venous phase from the diaphragm to the symphysis pubis. Sagittal and coronal reformats were created. The radiation exposure was limited using dose reduction technology. FINDINGS: There are linear bands of scar or discoid atelectasis posteriorly in both lower lobes. These have improved since a prior CT done on 11/30/20. There is fluid within a mildly distended distal esophagus. Poststernotomy changes are again seen. There is mild pericardial thickening along the posterior wall of the heart. This has increased since the prior study and could be a small pericardial effusion. No pleural effusion is present. The liver and spleen are normal in size and homogeneous. The gallbladder has been removed. The bile ducts are nondilated. There is atrophy of the pancreas but no evidence of pancreatic mass or pancreatitis. The adrenals and kidneys are normal. Urinary bladder is decompressed by Martinez catheter. There are small bubbles of air within the bladder which is probably related to the Martinez. Uterus and ovaries are atrophic. There is marked distention of stomach duodenum and jejunum with fluid and air. There is moderate dilatation of the ileum. Multiple air-fluid levels are present. The jejunum measures up to 5.8 cm in greatest dimension. The wall is not thickened or inflamed. The pneumatosis seen in the wall of the small bowel on the prior CT scan has resolved. Patient has had a near-total colectomy. There is a residual rectal stump. An ileostomy is present in the anterior right abdominal wall. The distal ileum, located within the ostomy is decompressed. Adjacent to this there is a parastomal hernia containing a loop of ileum which is distended. The wall of this entrapped segment of distal ileum does not appear to be thickened or inflamed. There is no surrounding free fluid. The hernia was noted on the prior CT on 11/30/20. There is a row of anastomotic sutures in the proximal ileum. No transition point is present at that level. There is no intra-abdominal mass, abscess or ascites. There is no adenopathy. Chronic degenerative changes are again seen in the lumbar spine with grade 1 spondylolisthesis and severe disc space narrowing at L4-5. IMPRESSION: Distal small bowel obstruction. This this has become worse since 11/30/20. It may be related to the parastomal hernia in the right side of the abdomen. Interpreted and Authenticated by: Zay Juarez 12/14/20
--- NOTE | 2020-12-14 08:21 | XRay Report ---
HISTORY: Nasogastric tube insertion for small bowel obstruction FINDINGS: Nasogastric tube has been inserted. The tip is in the cardia of the stomach. The sidehole remains in the distal esophagus. There is dilatation of the stomach and small bowel. Contrast is seen within the nondilated collecting systems in both kidneys following the preceding CT scan. There are numerous surgical skin kori in the mid abdomen and pelvis. IMPRESSION: Small bowel obstruction NG tube in the cardia of the stomach. The tube could be advanced several centimeters. Interpreted and Authenticated by: Zay Juarez 12/14/20
[2020-12-14] MEDS ORDERED: DOCUSATE SODIUM 100 MG CAPSULE PO SCH (09:00)
[2020-12-14] MEDS ORDERED: ONDANSETRON 4 MG ODT TABLET SL PRN (16:22)
--- NOTE | 2020-12-14 16:53 | General Surg History&Physical ---
HPI History of Present Illness Patient information: Note initiated : 12/14/20 at 4:51 pm Service Date, if different from initiated Date: [] Patient: Dayanna Guo a 60 y/o F admitted on 12/13/20 for abd pain. Chief Complaint: [] History of present illness: Ms. Guo is a 60 year old F PFSH PFSH All Active Problems (Updated 12/13/20 @ 22:18 by Mac Jacques MD) Right knee sprain (Acute) Pneumatosis intestinalis (Acute) Small bowel ischemia (Acute) Recurrent intestinal obstruction (Acute) Intractable abdominal pain (Acute) Intractable vomiting with nausea (Acute) Diabetes mellitus (Acute) Acute UTI (Acute) Hypercalcemia (Acute) COVID-19 (Acute) Acute kidney injury (Acute) Hypercalcemia (Acute) Hyponatremia (Acute) Elevated serum creatinine (Acute) Low back pain (Acute) Partial small bowel obstruction (Acute) Nausea and vomiting (Acute) Hypokalemia (Acute) Hyponatremia (Acute) Elevated LFTs (Acute) Small bowel obstruction (Acute) Dehydration (Acute) Primary chronic pseudo-obstruction of small intestine (Acute) UTI (urinary tract infection) (Acute) Hypocalcemia (Acute) Nausea & vomiting (Acute) Severe sepsis (Acute) 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 (Acute) Chronic, continuous use of opioids (Chronic) Myasthenia gravis (Chronic) Chronic intestinal pseudo-obstruction (Chronic) Recurrent intestinal obstruction (Chronic) Diabetes mellitus type 2, uncontrolled (Chronic) LA (obstructive sleep apnea) (Chronic) Hypertension (Chronic) Obesity, Class II, BMI 35-39.9 (Chronic) Low blood magnesium level (Chronic) Abdominal pain (Chronic) Chronic use of steroids (Chronic) Abnormal liver enzymes (Chronic) Hypothyroidism (Chronic) Sarcoidosis (Chronic) Polyglandular autoimmune syndrome (Chronic) Recurrent abdominal pain (Chronic) Medical History (Updated 12/13/20 @ 22:18 by Mac Jacques MD) Abdominal pain Abdominal pain Abdominal wound dehiscence Abnormal liver enzymes Achalasia and cardiospasm Acute respiratory insufficiency Adverse reaction to drug Anaphylaxis Bowel obstruction 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 Chronic use of steroids for myasthenia gravis; 10+ years Chronic, continuous use of opioids Constipation due to neurogenic bowel Constipation due to pain medication therapy Dehydration Dehydration Diabetes mellitus type 2, uncontrolled Encounter for care related to Port-a-Cath Fecal impaction Foot sprain Hypercalcemia Hypertension Hypocalcemia Hyponatremia Hypothyroidism Ileus Infiltrate of lung present on imaging of chest Intractable vomiting Lactic acid acidosis Low blood magnesium level Myasthenia gravis Nausea Nausea & vomiting Nausea & vomiting Nausea and vomiting Obesity, Class II, BMI 35-39.9 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 Pseudoobstruction of colon Pyelonephritis Recurrent abdominal pain Recurrent intestinal obstruction many recurrences; many surgical interventions Sarcoidosis Sepsis Sepsis associated hypotension Sepsis with acute hypoxic respiratory failure Severe sepsis Sigmoid volvulus Sinus tachycardia Sinus tachycardia Small bowel obstruction Small bowel obstruction Small bowel obstruction Small bowel obstruction Small bowel obstruction Small bowel obstruction Small bowel obstruction due to adhesions Small bowel obstruction due to postoperative adhesions Small bowel obstruction, partial Supraventricular tachycardia UTI (urinary tract infection) UTI (urinary tract infection) Volvulus of sigmoid colon Surgical History (Updated 12/06/20 @ 14:47 by Jayla Hay GENERAL PURCHASING AGENT) History of exploratory laparotomy 10/17/2017-with adhesiolysis History of exploratory laparotomy 12/01/2017-with adhesiolysis History of exploratory laparotomy 07/18/2018 History of exploratory laparotomy 08/10/2018-Exploratory laparotomy with small bowel adhesiolysis and incisional hernia repair with mesh graft History of exploratory laparotomy 11/30/2020-with total intraabdominal adhesiolysis S/P ileostomy Family History Father CAD (coronary artery disease) Mother CAD (coronary artery disease) Grandfather CVA (cerebral vascular accident) Grandmother CVA (cerebral vascular accident) Social History smoking status: Never smoker alcohol intake frequency: does not drink substance use type: does not use MEDS/ALLERGIES Home Medications and Allergies Home Medications Medication Instructions Recorded Confirmed Type duloxetine 30 mg PO BID 11/30/16 12/14/20 History levothyroxine 250 mcg PO QAMAC 08/20/17 12/14/20 History calcitriol See Rx Instructions .ROUTE .COMPLEX 02/11/19 12/14/20 History insulin glargine 10 unit SQ BID 09/30/19 12/14/20 History cyclobenzaprine 10 mg PO BIDP PRN 12/13/19 12/14/20 History magnesium oxide 500 mg PO BID 12/13/19 12/14/20 History ondansetron 4 mg SL Q4HP PRN 12/24/19 12/14/20 History promethazine 25 mg AL Q6HP PRN 12/24/19 12/14/20 History pyridostigmine bromide 5 mg/mL 10 mg IM Q6H #240 ml 01/04/20 12/14/20 Rx injection solution metformin 500 mg PO BID 07/12/20 12/14/20 History syringe with needle 3 mL 25 gauge See Rx Instructions .ROUTE 08/31/20 12/06/20 Rx x 1" .COMPLEX #100 unspecified acetaminophen 1,000 mg PO Q6HP PRN 09/14/20 12/14/20 History gabapentin 300 mg PO BID 09/14/20 12/14/20 History prednisone 20 mg PO QAMCC 09/14/20 12/14/20 History filter needles 19 x 1 1/2" #100 each 10/19/20 12/06/20 Rx promethazine 25 mg tablet 25 mg PO Q6HP PRN #60 tab 11/24/20 12/14/20 Rx pyridostigmine bromide [Mestinon] 60 mg PO TID #90 tab 12/06/20 12/14/20 Rx furosemide 20 mg tablet 20 mg PO QDAY #30 tab 12/08/20 12/14/20 Rx Accu-Chek 1 each FS BID 12/14/20 12/14/20 History Allergies Allergy/AdvReac Type Severity Reaction Status Date / Time Sulfa (Sulfonamide Allergy Severe Anaphylaxis Verified 12/06/20 15:42 Antibiotics) adhesive tape AdvReac Mild Blister Verified 12/06/20 15:42 metoclopramide [From Reglan] AdvReac Mild Anxiety Verified 12/06/20 15:42 steri strips AdvReac Mild Blister Uncoded 12/02/19 06:48 Physical Examination Vital Signs Vital signs: Temp Pulse Resp BP Pulse Ox 98.1 F 128 H 16 113/67 93 12/14/20 12:31 12/14/20 12:31 12/14/20 12:31 12/14/20 12:31 12/14/20 12:31 Results Labs Result diagrams: 12/13/20 20:12 12/13/20 20:12 Labs: Abnormal lab results 12/13/20 12/13/20 12/13/20 Range/Units 20:12 20:12 20:12 WBC 13.2 H (4.5-11.0) K/mcL Plt Count 478 H (140-440) K/mcL [place] # (Auto) 1.01 H (0.10-0.90) K/mcL Absolute Neutrophils 9.99 H (1.80-8.00) K/mcL VBG Lactic Acid 2.8 H (0.5-2.0) mmol/L Chloride 91 L (96-108) mmol/L BUN 26 H (6-20) mg/dL Glucose 196 H (70-105) mg/dL Alkaline Phosphatase 118 H (39-117) U/L Urine Appearance (Clear) Urine Protein (Negative) mg/dL Urine Occult Blood (Negative) donnie/mcL Urine RBC (0-1) /hpf 12/13/20 Range/Units 21:51 WBC (4.5-11.0) K/mcL Plt Count (140-440) K/mcL [place] # (Auto) (0.10-0.90) K/mcL Absolute Neutrophils (1.80-8.00) K/mcL VBG Lactic Acid (0.5-2.0) mmol/L Chloride (96-108) mmol/L BUN (6-20) mg/dL Glucose (70-105) mg/dL Alkaline Phosphatase (39-117) U/L Urine Appearance Hazy A (Clear) Urine Protein 100 mg/dl A (Negative) mg/dL Urine Occult Blood Large A (Negative) donnie/mcL Urine RBC > 182 H (0-1) /hpf Diabetes panel 12/13/20 Range/Units 20:12 Sodium 134 (133-145) mmol/L Potassium 4.1 (3.3-5.1) mmol/L Chloride 91 L (96-108) mmol/L Carbon Dioxide 30 (22-30) mmol/L BUN 26 H (6-20) mg/dL Creatinine 0.8 (0.6-1.1) mg/dL Glucose 196 H (70-105) mg/dL Calcium 8.8 (8.6-10.4) mg/dL AST 10 (<32) U/L ALT 12 (<40) U/L Alkaline Phosphatase 118 H (39-117) U/L Total Protein 7.0 (5.9-8.4) gm/dL Albumin 3.9 (3.2-5.2) gm/dL Calcium panel 12/13/20 Range/Units 20:12 Calcium 8.8 (8.6-10.4) mg/dL Albumin 3.9 (3.2-5.2) gm/dL Pituitary panel 12/13/20 Range/Units 20:12 Sodium 134 (133-145) mmol/L Potassium 4.1 (3.3-5.1) mmol/L Chloride 91 L (96-108) mmol/L Carbon Dioxide 30 (22-30) mmol/L BUN 26 H (6-20) mg/dL Creatinine 0.8 (0.6-1.1) mg/dL Glucose 196 H (70-105) mg/dL Calcium 8.8 (8.6-10.4) mg/dL Adrenal panel 12/13/20 Range/Units 20:12 Sodium 134 (133-145) mmol/L Potassium 4.1 (3.3-5.1) mmol/L Chloride 91 L (96-108) mmol/L Carbon Dioxide 30 (22-30) mmol/L BUN 26 H (6-20) mg/dL Creatinine 0.8 (0.6-1.1) mg/dL Glucose 196 H (70-105) mg/dL Calcium 8.8 (8.6-10.4) mg/dL Total Bilirubin 0.2 (0.1-1.0) mg/dL AST 10 (<32) U/L ALT 12 (<40) U/L Alkaline Phosphatase 118 H (39-117) U/L Total Protein 7.0 (5.9-8.4) gm/dL Albumin 3.9 (3.2-5.2) gm/dL All other labs normal. A/P Assessment and plan (1) Primary chronic pseudo-obstruction of small intestine: Status: Acute (2) 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: Status: Acute (3) Myasthenia gravis: Status: Chronic (4) LA (obstructive sleep apnea): Status: Chronic (5) Diabetes mellitus: Status: Acute Qualifiers: Diabetes mellitus type: type 2 Diabetes mellitus correction insulin use: with ad terminal makeup operator use Diabetes mellitus complication status: without complication Qualified Code(s): E11.9 - Type 2 diabetes mellitus without complications; Z79.4 - termination clerk (current) use of insulin Narrative A/P Narrative: Patient is not obstructed. She has chronic pseudoobstruction and has been started on oral medications. Does not appear to be effective. She is switched to Regonol and will be hydrated. Nasogastric tube will be continued until her bowel is totally decompressed. She should not need reoperation. Time Spent With Patient Time: Total time spent is greater than 50% in coordination of care (as documented) at patient's floor/unit and/or counseling patient:
[2020-12-14] MEDS: PYRIDOSTIGMINE BROMIDE 10 MG/2 ML AMPUL IM SCH (18:02)
[2020-12-14] MEDS: INSULIN LISPRO 1 UNIT/0.01 ML UNIT SQ SCH (18:12)
[2020-12-14] MEDS ORDERED: SENNOSIDES 1 TABLET PO SCH (21:00)
[2020-12-14] MEDS: methylPREDNISolone SOD SUCC 125 MG/2 ML VIAL IV SCH (21:47)
[2020-12-15] MEDS: PYRIDOSTIGMINE BROMIDE 10 MG/2 ML AMPUL IM SCH ×5 (00:29→23:50)
[2020-12-15] MEDS: HYDROmorphone 0.5 MG/0.5 ML SYRINGE IV PRN ×7 (01:08→23:50)
[2020-12-15] MEDS: 0.9 % SODIUM CHLORIDE 1,000 ML IV SCH ×5 (01:53→17:49)
[2020-12-15] MEDS: INSULIN LISPRO 1 UNIT/0.01 ML UNIT SQ SCH ×5 (02:08→23:50)
[2020-12-15] MEDS: 0.9 % SODIUM CHLORIDE 10 ML SYRINGE IV SCH ×3 (05:46→21:24)
[2020-12-15] MEDS: methylPREDNISolone SOD SUCC 125 MG/2 ML VIAL IV SCH ×3 (05:49→21:24)
[2020-12-15] MEDS: LEVOTHYROXINE 100 MCG VIAL IV SCH (06:42)
[2020-12-15 06:45] LABS: Basophils # (Auto) 0.02 K/mcL (0.00-0.20); Basophils % (Auto) 0.2 % (0.0-2.0); Eosinophils # (Auto) 0.01 K/mcL (0.00-0.70); Eosinophils % (Auto) 0.1 % (0.0-7.0); Hematocrit 35.6 % (36.0-48.0); Hemoglobin 10.3 g/dL (12.0-15.0); Lymphocytes # (Auto) 0.55 K/mcL (1.50-4.80); Mean Cell Volume 100.8 fL (80.0-100.0); Mean Corpuscular HGB Conc 28.9 g/dL (31.0-36.0); Mean Platelet Volume 9.6 fL (7.4-10.4); Monocytes # (Auto) 0.08 K/mcL (0.10-0.90); Monocytes % (Auto) 0.9 % (1.0-12.0); Neutrophils % (Auto) 92.9 % (38.0-78.0); Platelet Count 333 K/mcL (140-440); RBC 3.53 M/mcL (4.00-5.20); Red Cell Distribution Width 14.6 % (11.5-14.5); WBC 9.4 K/mcL (4.5-11.0)
[2020-12-15 07:06] LABS: ALT/SGPT 24 U/L (<40); AST/SGOT 22 U/L (<32); Albumin 3.3 gm/dL (3.2-5.2); Albumin/Globulin Ratio 1.2 (1.0-2.3); Alkaline Phosphatase 138 U/L (39-117); Bilirubin,Direct < 0.2 mg/dL (<0.3); Bilirubin,Total 0.4 mg/dL (0.1-1.0); Blood Urea Nitrogen 21 mg/dL (6-20); Calcium 6.4 mg/dL (8.6-10.4); Carbon Dioxide 23 mmol/L (22-30); Chloride 102 mmol/L (96-108); Globulin 2.7 gm/dL (2.2-3.7); Glomerular Filtration Rate 95; Glucose 183 mg/dL (70-105); Lactate Dehydrogenase 256 U/L (135-225); Triglycerides 212 mg/dL (<150); Uric Acid 4.7 mg/dL (2.5-8.0)
[2020-12-15 08:01] LABS: Lymphocytes % (Auto) 5.9 % (15.0-49.0)
[2020-12-15] MEDS ORDERED: CALCIUM GLUCONATE 4.65 MEQ/10 ML VIAL IV ONE (11:46)
--- NOTE | 2020-12-15 11:46 | General Surgery Progress Note ---
SUBJECTIVE Subjective Patient information: Note initiated : 12/15/20 at 11:41 am Service Date, if different from initiated Date: [] Patient: Dayanna Guo 60 y/o F admitted on 12/13/20 for abd pain. Chief Complaint: [] Principal diagnosis: Chronic intestinal pseudoobstruction Interval history: Patient feels much better. She has had output of gas and stool through her stoma. She denies nausea. White blood count 9.4, hemoglobin 10.3, hematocrit 35.6, potassium 4.1, BUN 21, creatinine 0.7, calcium 6.4, magnesium 1.7 Constitutional Vitals: Vital Signs Temp Pulse Resp BP Pulse Ox 98.5 F 95 H 16 137/86 93 12/15/20 08:00 12/15/20 08:00 12/15/20 08:00 12/15/20 08:00 12/15/20 08:00 Period Temp Pulse Resp BP Sys/Archuleta Pulse Ox Last 24 Hr 96.4 F-98.7 F 95-128 16-22 105-137/58-86 93-99 Intake and Output 12/14/20 12/15/20 12/15/20 21:59 05:59 13:59 Intake Total 1275 1443 1000 Output Total 250 500 Balance 3606 800 5613 Weight 232 lb Intake & Output: Intake & Output 12/14/20 12/15/20 12/15/20 21:59 05:59 13:59 Intake Total 1275 1443 1000 Output Total 250 500 Balance 5981 920 2590 Weight 232 lb Intake: IV 496 857 2954 Sodium Chloride 0.9% 1,000 ml @ 312 920 0832 150 mls/hr IV .Q6H40M [facility] Rx#: [id number] Oral 280 450 Output: Urine Catheter Amount 150 500 Stool 100 Other: Urine Appearance Sediment Uretheral (Martinez) Cloudy Hematuria Small Blood Clots Urine Color Brown Dark Yellow Uretheral (Martinez) Brown [place] Stool Size Small Stool Color Brown Stool Consistency Liquid Watery # Bowel Movements 1 Head Head exam: Present atraumatic, normal inspection and normocephalic Eye Eye exam: Present EOMI and normal appearance Pupils: Present PERRL ENT ENT exam: Present mucous membranes moist, normal exam and normal oropharynx Neck Neck exam: Present full ROM and lymphadenopathy Respiratory Respiratory exam: Present normal respiratory exam and CTAB; Absent rales, rhonchi and wheezes Cardiovascular Cardiovascular exam: Present normal rate and rhythm, RRR, +S1, +S2 and tachycardia; Absent JVD GI/Abdominal GI/Abdominal exam: Present normal bowel sounds, soft and distended; Absent organomegaly Extremities Exam Extremities exam: Present full ROM and neurovascular intact; Absent normal inspection and pedal edema Back Exam Back exam: Present full ROM and normal inspection Neurological Exam Neurological exam: Present alert, CN II-XII intact, normal gait, oriented X3 and reflexes normal Psychiatric Psychiatric exam: Present agitated, depressed, normal affect and normal mood Skin Skin exam: Present normal color A/P Assessment and plan (1) Primary chronic pseudo-obstruction of small intestine: Status: Acute (2) 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: Status: Acute (3) Myasthenia gravis: Status: Chronic (4) AL (obstructive sleep apnea): Status: Chronic (5) Diabetes mellitus: Status: Acute Qualifiers: Diabetes mellitus type: type 2 Diabetes mellitus termite control representative insulin use: with chcf use Diabetes mellitus complication status: without complication Qualified Code(s): E11.9 - Type 2 diabetes mellitus without complications; Z79.4 - vermin exterminator (current) use of insulin Narrative A/P Narrative: Clamp nasogastric tube MiraLAX in apple juice 4 times daily 2 view abdominal x-ray in the morning Calcium gluconate replacement Discontinue kori Time Spent With Patient Time: Total time spent is greater than 50% in coordination of care (as documented) at patient's floor/unit and/or counseling patient:
[2020-12-15] MEDS: CALCIUM GLUCONATE 9.3 MEQ in DEXTROSE 5% IN WATER 50 ML IV SCH (13:11)
[2020-12-15] MEDS: POLYETHYLENE GLYCOL 3350 17 GM PACKET PO SCH ×3 (13:11→21:24)
[2020-12-16] MEDS: 0.9 % SODIUM CHLORIDE 1,000 ML IV SCH ×4 (01:14→19:43)
[2020-12-16] MEDS: HYDROmorphone 0.5 MG/0.5 ML SYRINGE IV PRN ×6 (03:43→20:49)
[2020-12-16] MEDS: PYRIDOSTIGMINE BROMIDE 10 MG/2 ML AMPUL IM SCH ×3 (05:40→17:30)
[2020-12-16] MEDS: methylPREDNISolone SOD SUCC 125 MG/2 ML VIAL IV SCH ×3 (05:44→21:11)
[2020-12-16] MEDS: 0.9 % SODIUM CHLORIDE 10 ML SYRINGE IV SCH ×3 (05:46→21:17)
[2020-12-16] MEDS: INSULIN LISPRO 1 UNIT/0.01 ML UNIT SQ SCH ×3 (05:47→17:29)
[2020-12-16] MEDS: LEVOTHYROXINE 100 MCG VIAL IV SCH (07:01)
[2020-12-16 07:04] LABS: ALT/SGPT 17 U/L (<40); AST/SGOT 10 U/L (<32); Albumin/Globulin Ratio 1.4 (1.0-2.3); Alkaline Phosphatase 103 U/L (39-117); Bilirubin,Direct < 0.2 mg/dL (<0.3); Bilirubin,Total 0.3 mg/dL (0.1-1.0); Blood Urea Nitrogen 13 mg/dL (6-20); Calcium 6.3 mg/dL (8.6-10.4); Carbon Dioxide 25 mmol/L (22-30); Chloride 107 mmol/L (96-108); Globulin 2.2 gm/dL (2.2-3.7); Glomerular Filtration Rate 100; Glucose 212 mg/dL (70-105); Lactate Dehydrogenase 236 U/L (135-225); Phosphorous 2.5 mg/dL (2.5-4.5); Triglycerides 147 mg/dL (<150); Uric Acid 4.1 mg/dL (2.5-8.0)
--- NOTE | 2020-12-16 07:46 | XRay Report ---
HISTORY: Obstruction FINDINGS: There are multiple loops of dilated proximal small intestine with air-fluid levels. The distal small bowel is normal in caliber. There is nasogastric tube in the cardia of the stomach. Colon is largely decompressed. Comparison with the prior exam from 12/14/20 shows improvement of the small bowel dilatation. The surgical skin kori have been removed. No free intra-abdominal air is present. IMPRESSION: Improving proximal small bowel obstruction Interpreted and Authenticated by: Zay Juarez 12/16/20
[2020-12-16] MEDS: CALCIUM GLUCONATE 9.3 MEQ in DEXTROSE 5% IN WATER 50 ML IV SCH (08:49)
[2020-12-16] MEDS: ONDANSETRON 4 MG/2 ML VIAL IV PRN (08:49)
[2020-12-16] MEDS: POLYETHYLENE GLYCOL 3350 17 GM PACKET PO SCH ×4 (09:06→20:48)
[2020-12-16] MEDS ORDERED: POTASSIUM PHOSPHATE 40 MEQ in DEXTROSE 5% IN WATER 500 ML IV ONE (11:00)
[2020-12-16] MEDS ORDERED: MAGNESIUM SULFATE 4 GM/100 ML BAG IV ONE (11:00)
--- NOTE | 2020-12-16 13:09 | General Surgery Progress Note ---
SUBJECTIVE Subjective Patient information: Note initiated : 12/16/20 at 1:03 pm Service Date, if different from initiated Date: [] Patient: Dayanna Guo 60 y/o F admitted on 12/13/20 for abd pain. Chief Complaint: [] Principal diagnosis: Chronic intestinal pseudoobstruction Interval history: Patient continues to improve. She has had her nasogastric tube clamped for greater than 24 hours and has been getting MiraLAX 4 times daily. She has large volume liquid output through her stoma. Abdominal x-rays shows significant decrease in size of her bowel. Phosphorus and magnesium more slightly decreased. Constitutional Vitals: Vital Signs Temp Pulse Resp BP Pulse Ox 97.7 F 90 20 167/101 96 12/16/20 11:52 12/16/20 08:00 12/16/20 11:52 12/16/20 11:52 12/16/20 11:52 Period Temp Pulse Resp BP Sys/Archuleta Pulse Ox Last 24 Hr 97.0 F-98.6 F 89-99 16-20 125-167/76-103 95-98 Intake and Output 12/15/20 12/16/20 12/16/20 21:59 05:59 13:59 Intake Total 1282 947 1462 Output Total 150 600 Balance 9586 914 6596 Weight 237 lb 4 oz Intake & Output: Intake & Output 12/15/20 12/16/20 12/16/20 21:59 05:59 13:59 Intake Total 2563 203 9514 Output Total 150 600 Balance 8292 163 4466 Weight 237 lb 4 oz Intake: IV 9530 107 0891 Sodium Chloride 0.9% 1,000 ml @ 0285 670 4320 150 mls/hr IV .Q6H40M [facility] Rx#: [id number] Calcium Gluconate 9.3 Meq In 70 70 Dextrose 5% in Water 50 ml @ 70 mls/hr IV Q24H [facility] Rx#: [id number] Oral 60 Output: Void Amount 200 Stool 150 400 Other: Urine Appearance Clear Urine Color Bright Yellow Bright Yellow Urine Odor Normal Stool Size Moderate Moderate Stool Color Brown Brown Brown Stool Consistency Liquid Liquid Liquid Watery Watery Watery # Voids 1 # Bowel Movements 1 Head Head exam: Present atraumatic, normal inspection and normocephalic Eye Eye exam: Present EOMI and normal appearance Pupils: Present PERRL ENT ENT exam: Present mucous membranes moist, normal exam and normal oropharynx Neck Neck exam: Present full ROM; Absent lymphadenopathy and tenderness Respiratory Respiratory exam: Present normal respiratory exam and CTAB; Absent rales, rhonchi and wheezes Cardiovascular Cardiovascular exam: Present RRR, +S1, +S2 and tachycardia (Tachycardia is significantly improved); Absent JVD GI/Abdominal GI/Abdominal exam: Present normal bowel sounds, soft and distended; Absent organomegaly Additional comments: Stoma is patent and functioning normally Extremities Exam Extremities exam: Present full ROM and neurovascular intact; Absent normal inspection and pedal edema Back Exam Back exam: Present full ROM and normal inspection Neurological Exam Neurological exam: Present alert, CN II-XII intact, normal gait, oriented X3 and reflexes normal Psychiatric Psychiatric exam: Present agitated, depressed, normal affect and normal mood Skin Skin exam: Present normal color A/P Assessment and plan (1) Primary chronic pseudo-obstruction of small intestine: Status: Acute (2) Recurrent intestinal obstruction: Status: Acute (3) Dehydration: Status: Acute (4) Hypocalcemia: Status: Acute (5) Diabetes mellitus: Status: Acute Qualifiers: Diabetes mellitus type: type 2 Diabetes mellitus terminal gauger insulin use: with care home use Diabetes mellitus complication status: without complication Qualified Code(s): E11.9 - Type 2 diabetes mellitus without complications; Z79.4 - care home (current) use of insulin (6) LA (obstructive sleep apnea): Status: Chronic (7) Hypertension: Status: Chronic Qualifiers: Hypertension type: essential hypertension Qualified Code(s): I10 - Essential (primary) hypertension (8) Polyglandular autoimmune syndrome: Status: Chronic Narrative A/P Narrative: Patient continues to improve. She has had increased output via her stoma. Her dehydration is improved and her BUN and creatinine are normal Discontinue nasogastric tube Start clear liquid diet Check abdominal x-rays in the morning Time Spent With Patient Time: Total time spent is greater than 50% in coordination of care (as documented) at patient's floor/unit and/or counseling patient:
[2020-12-17] MEDS: INSULIN LISPRO 1 UNIT/0.01 ML UNIT SQ SCH ×4 (00:01→16:49)
[2020-12-17] MEDS: 0.9 % SODIUM CHLORIDE 1,000 ML IV SCH ×5 (00:06→13:43)
[2020-12-17] MEDS: HYDROmorphone 0.5 MG/0.5 ML SYRINGE IV PRN ×7 (03:25→20:56)
[2020-12-17] MEDS: PYRIDOSTIGMINE BROMIDE 10 MG/2 ML AMPUL IM SCH ×5 (05:10→23:55)
[2020-12-17] MEDS: 0.9 % SODIUM CHLORIDE 10 ML SYRINGE IV SCH ×3 (05:25→20:56)
[2020-12-17 06:29] LABS: Basophils # (Auto) 0 K/mcL (0.00-0.20); Basophils % (Auto) 0 % (0.0-2.0); Eosinophils # (Auto) 0 K/mcL (0.00-0.70); Eosinophils % (Auto) 0 % (0.0-7.0); Hematocrit 29.9 % (36.0-48.0); Hemoglobin 9.1 g/dL (12.0-15.0); Lymphocytes # (Auto) 0.51 K/mcL (1.50-4.80); Lymphocytes % (Auto) 9.8 % (15.0-49.0); Mean Cell Volume 94.9 fL (80.0-100.0); Mean Corpuscular HGB Conc 30.4 g/dL (31.0-36.0); Mean Platelet Volume 9.8 fL (7.4-10.4); Monocytes # (Auto) 0.27 K/mcL (0.10-0.90); Monocytes % (Auto) 5.2 % (1.0-12.0); Platelet Count 315 K/mcL (140-440); RBC 3.15 M/mcL (4.00-5.20); Red Cell Distribution Width 14.6 % (11.5-14.5); WBC 5.2 K/mcL (4.5-11.0)
[2020-12-17] MEDS: methylPREDNISolone SOD SUCC 125 MG/2 ML VIAL IV SCH ×3 (06:57→20:55)
[2020-12-17] MEDS: LEVOTHYROXINE 100 MCG VIAL IV SCH (06:58)
[2020-12-17 07:03] LABS: ALT/SGPT 14 U/L (<40); AST/SGOT 9 U/L (<32); Albumin 3.3 gm/dL (3.2-5.2); Albumin/Globulin Ratio 1.5 (1.0-2.3); Alkaline Phosphatase 104 U/L (39-117); Bilirubin,Direct < 0.2 mg/dL (<0.3); Bilirubin,Total 0.2 mg/dL (0.1-1.0); Blood Urea Nitrogen 8 mg/dL (6-20); Calcium 6.3 mg/dL (8.6-10.4); Carbon Dioxide 24 mmol/L (22-30); Chloride 104 mmol/L (96-108); Globulin 2.2 gm/dL (2.2-3.7); Glomerular Filtration Rate 106; Glucose 196 mg/dL (70-105); Lactate Dehydrogenase 333 U/L (135-225); Phosphorous 2.8 mg/dL (2.5-4.5); Triglycerides 186 mg/dL (<150)
[2020-12-17] MEDS: POLYETHYLENE GLYCOL 3350 17 GM PACKET PO SCH ×4 (08:23→20:55)
--- NOTE | 2020-12-17 09:29 | XRay Report ---
HISTORY: Follow-up small bowel obstruction FINDINGS: Supine and erect views were obtained. There are multiple loops of dilated small bowel in the mid and upper abdomen which contain air-fluid levels. They measure up to 5 cm in diameter. There is air in nondistended stomach. The nasogastric tube has been removed since yesterday. The caliber of the dilated small intestine has not changed significantly. There is very little air or stool in the colon. The point of obstruction cannot be identified. IMPRESSION: Persistent mid small bowel obstruction Interpreted and Authenticated by: Zay Juarez 12/17/20
[2020-12-17] MEDS: CALCIUM GLUCONATE 9.3 MEQ in DEXTROSE 5% IN WATER 50 ML IV SCH (09:42)
--- NOTE | 2020-12-17 12:33 | General Surgery Progress Note ---
SUBJECTIVE Subjective Patient information: Note initiated : 12/17/20 at 12:29 pm Service Date, if different from initiated Date: [] Patient: Dayanna Guo 60 y/o F admitted on 12/13/20 for abd pain. Chief Complaint: [] Principal diagnosis: Chronic intestinal pseudoobstruction Interval history: Patient continues to improve. She is tolerating diet without difficulty and is having large volume output through her ileostomy. She has joint and bone pain but no abdominal pain. White blood count 5.2, hemoglobin 9.1, hematocrit 29.9, BUN 8, creatinine 0.5. Constitutional Vitals: Vital Signs Temp Pulse Resp BP Pulse Ox 97.5 F 79 18 125/69 95 12/17/20 11:51 12/17/20 11:51 12/17/20 11:51 12/17/20 11:51 12/17/20 11:51 Period Temp Pulse Resp BP Sys/Archuleta Pulse Ox Last 24 Hr 96.9 F-98 F 72-87 12-18 125-159/8-95 95-100 Intake and Output 12/16/20 12/17/20 12/17/20 21:59 05:59 13:59 Intake Total 2557.0909 1150 1550 Output Total 1250 200 Balance 1307.0909 950 1550 Weight 244 lb Intake & Output: Intake & Output 12/16/20 12/17/20 12/17/20 21:59 05:59 13:59 Intake Total 2557.0909 1150 1550 Output Total 1250 200 Balance 1307.0909 950 1550 Weight 244 lb Intake: IV 877.0909 1000 1070 Sodium Chloride 0.9% 1,000 ml @ 268 1000 1000 150 mls/hr IV .Q6H40M [facility] Rx#: [id number] Calcium Gluconate 9.3 Meq In 70 Dextrose 5% in Water 50 ml @ 70 mls/hr IV Q24H [facility] Rx#: [id number] Potassium Phosphate 40 Meq In 509.0909 Dextrose 5% in Water 500 ml @ 127.273 mls/hr IV ONCE ONE Rx#: [id number] Oral 1680 150 480 Output: Void Amount 800 150 Stool 450 50 Other: Meal Dinner Percent of Meal Consumed 75% Feeding Ability Independent Urine Appearance Clear Clear Urine Color Bright Yellow Bright Yellow Urine Odor Normal Stool Size Moderate Stool Color Brown Brown Brown Stool Consistency Liquid Liquid Liquid Watery Head Head exam: Present atraumatic, normal inspection and normocephalic Eye Eye exam: Present EOMI and normal appearance Pupils: Present PERRL ENT ENT exam: Present mucous membranes moist, normal exam and normal oropharynx Neck Neck exam: Present full ROM; Absent lymphadenopathy and tenderness Respiratory Respiratory exam: Present normal respiratory exam and CTAB; Absent rales, rhonchi and wheezes Cardiovascular Cardiovascular exam: Present RRR, +S1, +S2 and tachycardia (Tachycardia is significantly improved); Absent JVD GI/Abdominal GI/Abdominal exam: Present normal bowel sounds, soft and distended; Absent organomegaly Additional comments: Stoma is patent and functioning normally Extremities Exam Extremities exam: Present full ROM and neurovascular intact; Absent normal inspection and pedal edema Back Exam Back exam: Present full ROM and normal inspection Neurological Exam Neurological exam: Present alert, CN II-XII intact, normal gait, oriented X3 and reflexes normal Psychiatric Psychiatric exam: Present agitated, depressed, normal affect and normal mood A/P Assessment and plan (1) Primary chronic pseudo-obstruction of small intestine: Status: Acute (2) Recurrent intestinal obstruction: Status: Acute (3) Dehydration: Status: Acute (4) Hypocalcemia: Status: Acute (5) Diabetes mellitus: Status: Acute Qualifiers: Diabetes mellitus type: type 2 Diabetes mellitus international logistics coordinator insulin use: with international logistics coordinator use Diabetes mellitus complication status: without complication Qualified Code(s): E11.9 - Type 2 diabetes mellitus without complications; Z79.4 - data entry (current) use of insulin (6) LA (obstructive sleep apnea): Status: Chronic (7) Hypertension: Status: Chronic Qualifiers: Hypertension type: essential hypertension Qualified Code(s): I10 - Essential (primary) hypertension (8) Polyglandular autoimmune syndrome: Status: Chronic Narrative A/P Narrative: Advance to full liquid diet Decrease IV to 50 cc/h Encourage patient to participate in OT and PT Check abdominal x-rays in the morning Time Spent With Patient Time: Total time spent is greater than 50% in coordination of care (as documented) at patient's floor/unit and/or counseling patient:
[2020-12-18] MEDS: INSULIN LISPRO 1 UNIT/0.01 ML UNIT SQ SCH ×5 (00:08→23:35)
[2020-12-18] MEDS: HYDROmorphone 0.5 MG/0.5 ML SYRINGE IV PRN ×3 (00:09→07:21)
[2020-12-18] MEDS: 0.9 % SODIUM CHLORIDE 1,000 ML IV SCH ×2 (02:50→15:13)
[2020-12-18] MEDS: PYRIDOSTIGMINE BROMIDE 10 MG/2 ML AMPUL IM SCH ×4 (05:12→23:29)
[2020-12-18] MEDS: 0.9 % SODIUM CHLORIDE 10 ML SYRINGE IV SCH ×3 (05:16→21:07)
[2020-12-18 06:44] LABS: Basophils # (Auto) 0.02 K/mcL (0.00-0.20); Basophils % (Auto) 0.5 % (0.0-2.0); Eosinophils # (Auto) 0 K/mcL (0.00-0.70); Eosinophils % (Auto) 0 % (0.0-7.0); Hematocrit 30.4 % (36.0-48.0); Hemoglobin 9.1 g/dL (12.0-15.0); Lymphocytes # (Auto) 0.52 K/mcL (1.50-4.80); Lymphocytes % (Auto) 11.8 % (15.0-49.0); Mean Cell Volume 96.8 fL (80.0-100.0); Mean Corpuscular HGB Conc 29.9 g/dL (31.0-36.0); Mean Platelet Volume 9.7 fL (7.4-10.4); Monocytes # (Auto) 0.41 K/mcL (0.10-0.90); Monocytes % (Auto) 9.3 % (1.0-12.0); Neutrophils % (Auto) 78.4 % (38.0-78.0); Platelet Count 310 K/mcL (140-440); RBC 3.14 M/mcL (4.00-5.20); Red Cell Distribution Width 14.7 % (11.5-14.5); WBC 4.4 K/mcL (4.5-11.0)
[2020-12-18] MEDS: methylPREDNISolone SOD SUCC 125 MG/2 ML VIAL IV SCH ×3 (07:02→21:23)
[2020-12-18] MEDS: LEVOTHYROXINE 100 MCG VIAL IV SCH (07:03)
[2020-12-18 07:05] LABS: ALT/SGPT 17 U/L (<40); AST/SGOT 10 U/L (<32); Albumin 3.2 gm/dL (3.2-5.2); Albumin/Globulin Ratio 1.7 (1.0-2.3); Alkaline Phosphatase 89 U/L (39-117); Bilirubin,Direct < 0.2 mg/dL (<0.3); Bilirubin,Total 0.2 mg/dL (0.1-1.0); Blood Urea Nitrogen 8 mg/dL (6-20); Calcium 6.4 mg/dL (8.6-10.4); Carbon Dioxide 26 mmol/L (22-30); Chloride 107 mmol/L (96-108); Globulin 1.9 gm/dL (2.2-3.7); Glomerular Filtration Rate 95; Glucose 188 mg/dL (70-105); Lactate Dehydrogenase 340 U/L (135-225); Phosphorous 2.3 mg/dL (2.5-4.5); Triglycerides 240 mg/dL (<150); Uric Acid 3.7 mg/dL (2.5-8.0)
[2020-12-18] MEDS: POLYETHYLENE GLYCOL 3350 17 GM PACKET PO SCH ×4 (08:12→21:07)
[2020-12-18] MEDS: CALCIUM GLUCONATE 9.3 MEQ in DEXTROSE 5% IN WATER 50 ML IV SCH (08:40)
--- NOTE | 2020-12-18 10:12 | XRay Report ---
HISTORY: Follow-up small bowel obstruction FINDINGS: There are multiple loops of dilated proximal small intestine with air-fluid levels. The largest segment is in the right upper quadrant and measures 5.3 cm. There is also air and air-fluid level in nondistended stomach. Air-fluid levels are also present in normal caliber distal ileum. There is very little air or stool in the colon. No free intra-abdominal air is present. There has been a gradual improvement in small bowel dilatation compared with prior exams dating back through 12/14/20. IMPRESSION: Slowly resolving small bowel obstruction Interpreted and Authenticated by: Zay Juarez 12/18/20
[2020-12-18] MEDS: HYDROmorphone 1 MG/ML SYRINGE IV PRN ×4 (11:01→21:05)
--- NOTE | 2020-12-18 13:33 | General Surgery Progress Note ---
SUBJECTIVE Subjective Patient information: Note initiated : 12/18/20 at 1:30 pm Service Date, if different from initiated Date: [] Patient: Dayanna Guo 60 y/o F admitted on 12/13/20 for abd pain. Chief Complaint: [] Principal diagnosis: Chronic intestinal pseudoobstruction Interval history: Patient is doing well. She is afebrile. She is tolerating a regular diet and is having excellent movement through her stoma. Her crampy abdominal pain has essentially resolved. Potassium 3.7, BUN 8, creatinine 0.7, calcium 6.4, phosphorus 2.3, magnesium 1.5, white blood count 4.4, hemoglobin 9.1, hematocrit 30.4. Abdominal x-ray shows dilated small bowel loops in the midabdomen but no significant dilation distally. Constitutional Vitals: Vital Signs Temp Pulse Resp BP Pulse Ox 97.4 F 72 18 172/83 93 12/18/20 11:29 12/18/20 11:29 12/18/20 11:29 12/18/20 11:29 12/18/20 11:29 Period Temp Pulse Resp BP Sys/Archuleta Pulse Ox Last 24 Hr 97.0 F-97.9 F 59-79 16-20 132-184/74-88 93-98 Intake and Output 12/17/20 12/18/20 12/18/20 21:59 05:59 13:59 Intake Total 509 427 3449 Output Total 225 450 975 Balance 385 256 55 Weight 246 lb 9.6 oz Intake & Output: Intake & Output 12/17/20 12/18/20 12/18/20 21:59 05:59 13:59 Intake Total 689 581 5753 Output Total 225 450 975 Balance 385 256 55 Weight 246 lb 9.6 oz Intake: IV 656 70 Sodium Chloride 0.9% 1,000 ml @ 656 50 mls/hr IV .Q20H MALENA Rx#: [id number] Calcium Gluconate 9.3 Meq In 70 Dextrose 5% in Water 50 ml @ 70 mls/hr IV Q24H MALENA Rx#: [id number] Oral 610 50 960 Output: Void Amount 100 225 825 Stool 125 225 150 Other: Meal Dinner Lunch Percent of Meal Consumed 100% 100% Feeding Ability Independent Independent Urine Appearance Clear Clear Cloudy Urine Color Pale Bright Yellow Pale Urine Odor Normal Stool Size Small Stool Color Brown Brown Brown Stool Consistency Liquid Liquid Loose # Voids 1 1 Head Head exam: Present atraumatic, normal inspection and normocephalic Eye Eye exam: Present EOMI and normal appearance Pupils: Present PERRL ENT ENT exam: Present mucous membranes moist, normal exam and normal oropharynx Neck Neck exam: Present full ROM; Absent lymphadenopathy and tenderness Respiratory Respiratory exam: Present normal respiratory exam and CTAB; Absent rales, rhonchi and wheezes Cardiovascular Cardiovascular exam: Present RRR, +S1, +S2 and tachycardia (Tachycardia is significantly improved); Absent JVD GI/Abdominal GI/Abdominal exam: Present normal bowel sounds, soft and distended; Absent organomegaly Additional comments: Stoma is patent and functioning normally Back Exam Back exam: Present full ROM and normal inspection Neurological Exam Neurological exam: Present alert, CN II-XII intact, normal gait, oriented X3 and reflexes normal A/P Assessment and plan (1) Primary chronic pseudo-obstruction of small intestine: Status: Acute (2) Recurrent intestinal obstruction: Status: Acute (3) Dehydration: Status: Acute (4) Hypocalcemia: Status: Acute (5) Diabetes mellitus: Status: Acute Qualifiers: Diabetes mellitus type: type 2 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: with 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 use Diabetes mellitus complication status: without complication Qualified Code(s): E11.9 - Type 2 diabetes mellitus without complications; Z79.4 - FPC (current) use of insulin (6) AL (obstructive sleep apnea): Status: Chronic (7) Hypertension: Status: Chronic Qualifiers: Hypertension type: essential hypertension Qualified Code(s): I10 - Essential (primary) hypertension (8) Polyglandular autoimmune syndrome: Status: Chronic Narrative A/P Narrative: small bowel follow through today replace magnesium and phosphorus Time Spent With Patient Time: Total time spent is greater than 50% in coordination of care (as documented) at patient's floor/unit and/or counseling patient:
[2020-12-18] MEDS: ONDANSETRON 4 MG/2 ML VIAL IV PRN (14:40)
[2020-12-18] MEDS ORDERED: POTASSIUM PHOSPHATE 40 MEQ in DEXTROSE 5% IN WATER 500 ML IV ONE (15:00)
[2020-12-18] MEDS ORDERED: MAGNESIUM SULFATE 4 GM/100 ML BAG IV ONE (15:00)
[2020-12-18] MEDS: PROMETHAZINE 25 MG/ML VIAL IV PRN (18:17)
[2020-12-18] MEDS ORDERED: CYCLOBENZAPRINE 10 MG TABLET PO PRN (20:10)
[2020-12-18] MEDS ORDERED: PYRIDOSTIGMINE BROMIDE 10 MG/2 ML AMPUL IM SCH (20:15)
--- NOTE | 2020-12-18 20:24 | XRay Report ---
HISTORY: Small bowel obstruction FINDINGS: Patient drank dilute Gastrografin contrast. Serial portable images were acquired. At 15 minutes much of the contrast had passed through the stomach into the proximal jejunum. There is no evidence of obstruction at the pylorus. Proximal duodenum is normal. There is mild dilatation of the distal duodenum. Segments of distal jejunum and ileum are abnormally dilated but not obstructed. At four hours much of the oral contrast passed through the small bowel into the ostomy bag in the right side of the abdomen. 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 IMPRESSION: Abnormally dilated but not obstructed small bowel IMPRESSION: Interpreted and Authenticated by: Zay Juarez 12/18/20
[2020-12-18] MEDS: GABAPENTIN 300 MG CAPSULE PO SCH (21:24)
[2020-12-18] MEDS: MAGNESIUM OXIDE 400 MG TABLET PO SCH (21:24)
[2020-12-18] MEDS: DULoxetine 30 MG CAPSULE PO SCH (21:24)
[2020-12-18] MEDS: CALCITRIOL 0.25 MCG CAPSULE PO SCH (21:25)
[2020-12-19] MEDS: HYDROmorphone 1 MG/ML SYRINGE IV PRN ×7 (00:31→21:05)
[2020-12-19] MEDS: PYRIDOSTIGMINE BROMIDE 10 MG/2 ML AMPUL IM SCH ×3 (05:32→18:13)
[2020-12-19] MEDS: INSULIN LISPRO 1 UNIT/0.01 ML UNIT SQ SCH ×4 (05:36→21:38)
[2020-12-19] MEDS: 0.9 % SODIUM CHLORIDE 10 ML SYRINGE IV SCH ×3 (05:46→20:05)
[2020-12-19] MEDS: 0.9 % SODIUM CHLORIDE 1,000 ML IV SCH ×2 (05:47→07:51)
[2020-12-19 06:34] LABS: Basophils # (Auto) 0.02 K/mcL (0.00-0.20); Basophils % (Auto) 0.4 % (0.0-2.0); Eosinophils # (Auto) 0 K/mcL (0.00-0.70); Eosinophils % (Auto) 0 % (0.0-7.0); Hematocrit 32.2 % (36.0-48.0); Hemoglobin 10.2 g/dL (12.0-15.0); Lymphocytes # (Auto) 0.45 K/mcL (1.50-4.80); Lymphocytes % (Auto) 9.2 % (15.0-49.0); Mean Cell Volume 91.2 fL (80.0-100.0); Mean Corpuscular HGB Conc 31.7 g/dL (31.0-36.0); Mean Platelet Volume 9.7 fL (7.4-10.4); Monocytes # (Auto) 0.59 K/mcL (0.10-0.90); Neutrophils % (Auto) 78.4 % (38.0-78.0); Platelet Count 326 K/mcL (140-440); RBC 3.53 M/mcL (4.00-5.20); Red Cell Distribution Width 14.5 % (11.5-14.5); WBC 4.9 K/mcL (4.5-11.0)
[2020-12-19] MEDS: LEVOTHYROXINE 100 MCG VIAL IV SCH (06:42)
[2020-12-19] MEDS: methylPREDNISolone SOD SUCC 125 MG/2 ML VIAL IV SCH ×3 (06:42→21:05)
[2020-12-19] MEDS: CALCITRIOL 0.25 MCG CAPSULE PO SCH ×3 (07:49→21:04)
[2020-12-19] MEDS: GABAPENTIN 300 MG CAPSULE PO SCH ×2 (07:49→21:04)
[2020-12-19] MEDS: DULoxetine 30 MG CAPSULE PO SCH ×2 (07:49→21:04)
[2020-12-19] MEDS: MAGNESIUM OXIDE 400 MG TABLET PO SCH ×2 (07:49→21:04)
[2020-12-19] MEDS: CALCIUM GLUCONATE 9.3 MEQ in DEXTROSE 5% IN WATER 50 ML IV SCH (07:59)
[2020-12-19] MEDS: POLYETHYLENE GLYCOL 3350 17 GM PACKET PO SCH ×4 (07:59→21:03)
--- NOTE | 2020-12-19 08:56 | XRay Report ---
CLINICAL INFORMATION: FOLLOW -UP OF SMALL BOWEL OBSTRUCTION COMPARISON: 12/28/2020 FINDINGS: Stomach and small bowel are moderately dilated with scattered air-fluid levels. No free air. IMPRESSION: Moderate dilatation of the stomach and small bowel. Yesterday's small bowel follow-through did not show evidence of obstruction however. This may represent atypical ileus Interpreted and Authenticated by: All Lundberg 12/19/20
--- NOTE | 2020-12-19 13:04 | General Surgery Progress Note ---
SUBJECTIVE Subjective Patient information: Note initiated : 12/19/20 at 1:00 pm Service Date, if different from initiated Date: [] Patient: Dayanna Guo 60 y/o F admitted on 12/13/20 for abd pain. Chief Complaint: [] Principal diagnosis: Chronic intestinal pseudoobstruction Interval history: Patient continues to do well. Small bowel follow-through that was completed last evening did not show any evidence of obstruction. She put out in excess of 5000 cc through her ileostomy last evening. She does not have any crampy abdominal pain and she does not have any distention. X-ray shows some dilated loops of small bowel in the midabdomen. White blood count 4.9, hemoglobin 10.2, hematocrit 32.2. Constitutional Vitals: Vital Signs Temp Pulse Resp BP Pulse Ox 97.4 F 86 22 151/87 95 12/19/20 12:00 12/19/20 12:00 12/19/20 12:00 12/19/20 12:00 12/19/20 12:00 Period Temp Pulse Resp BP Sys/Archuleta Pulse Ox Last 24 Hr 97.1 F-98.5 F 62-86 16-22 125-155/71-87 94-98 Intake and Output 12/18/20 12/19/20 12/19/20 21:59 05:59 13:59 Intake Total 1500 1609.0909 650 Output Total 2585 4775 625 Balance -1085 -3165.9091 25 Weight 244 lb Intake & Output: Intake & Output 12/18/20 12/19/20 12/19/20 21:59 05:59 13:59 Intake Total 1500 1609.0909 650 Output Total 2585 4775 625 Balance -1085 -3165.9091 25 Weight 244 lb Intake: IV 100 1509.0909 170 Sodium Chloride 0.9% 1,000 ml @ 1000 100 50 mls/hr IV .Q20H MALENA Rx#: [id number] Calcium Gluconate 9.3 Meq In 70 Dextrose 5% in Water 50 ml @ 70 mls/hr IV Q24H MALENA Rx#: [id number] Potassium Phosphate 40 Meq In 509.0909 Dextrose 5% in Water 500 ml @ 127.273 mls/hr IV ONCE ONE Rx#: [id number] Oral 1400 100 480 Output: Void Amount 1185 525 400 Stool 1400 4250 225 Other: Meal Cream soup & ice cream Breakfast Percent of Meal Consumed 100% 100% Feeding Ability Independent Independent Urine Appearance Clear Clear Urine Color Bright Yellow Bright Yellow Urine Odor Normal Stool Size Moderate Large Stool Color Brown Brown Brown Stool Consistency Watery Watery Liquid # Bowel Movements 1 Head Head exam: Present atraumatic, normal inspection and normocephalic Eye Eye exam: Present EOMI and normal appearance Pupils: Present PERRL ENT ENT exam: Present mucous membranes moist, normal exam and normal oropharynx Neck Neck exam: Present full ROM; Absent lymphadenopathy and tenderness Respiratory Respiratory exam: Present normal respiratory exam and CTAB; Absent rales, rhonchi and wheezes Cardiovascular Cardiovascular exam: Present RRR, +S1, +S2 and tachycardia (Tachycardia is significantly improved); Absent JVD GI/Abdominal GI/Abdominal exam: Present normal bowel sounds, soft and distended; Absent organomegaly Additional comments: Stoma is patent and functioning normally Extremities Exam Extremities exam: Present full ROM and neurovascular intact; Absent normal inspection and pedal edema Neurological Exam Neurological exam: Present alert, CN II-XII intact, normal gait, oriented X3 and reflexes normal Psychiatric Psychiatric exam: Present agitated, depressed, normal affect and normal mood Skin Skin exam: Present normal color A/P Assessment and plan (1) Primary chronic pseudo-obstruction of small intestine: Status: Acute (2) Recurrent intestinal obstruction: Status: Acute (3) Dehydration: Status: Acute (4) Hypocalcemia: Status: Acute (5) Diabetes mellitus: Status: Acute Qualifiers: Diabetes mellitus type: type 2 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 She is advanced to a GI soft diet. She appears to be tolerating it well. Her stoma continues to function adequately. There is no evidence of obstruction though she does have some dilated bowel related to her pseudoobstruction. She will probably be stable for discharge to nursing care facility tomorrow. Time Spent With Patient Time: Total time spent is greater than 50% in coordination of care (as documented) at patient's floor/unit and/or counseling patient:
[2020-12-19] MEDS: PROMETHAZINE 25 MG/ML VIAL IV PRN (20:05)
[2020-12-20] MEDS: HYDROmorphone 1 MG/ML SYRINGE IV PRN ×4 (00:01→10:38)
[2020-12-20] MEDS: PYRIDOSTIGMINE BROMIDE 10 MG/2 ML AMPUL IM SCH ×3 (00:05→12:20)
[2020-12-20] MEDS: methylPREDNISolone SOD SUCC 125 MG/2 ML VIAL IV SCH (05:58)
[2020-12-20] MEDS: 0.9 % SODIUM CHLORIDE 10 ML SYRINGE IV SCH ×2 (05:59→12:10)
[2020-12-20] MEDS: INSULIN LISPRO 1 UNIT/0.01 ML UNIT SQ SCH ×2 (08:12→12:19)
[2020-12-20] MEDS: POLYETHYLENE GLYCOL 3350 17 GM PACKET PO SCH ×2 (08:13→12:20)
[2020-12-20] MEDS: GABAPENTIN 300 MG CAPSULE PO SCH (08:13)
[2020-12-20] MEDS: DULoxetine 30 MG CAPSULE PO SCH (08:13)
[2020-12-20] MEDS: MAGNESIUM OXIDE 400 MG TABLET PO SCH (08:13)
[2020-12-20] MEDS: CALCITRIOL 0.25 MCG CAPSULE PO SCH (08:13)
[2020-12-20] MEDS: LEVOTHYROXINE 100 MCG VIAL IV SCH (08:13)
--- NOTE | 2020-12-20 09:40 | XRay Report ---
CLINICAL INFORMATION: FOLLOW -UP OF SMALL BOWEL OBSTRUCTION COMPARISON: 12/19/2020 FINDINGS: Stomach and small bowel show slight decrease in caliber and now only mildly dilated. There is no free air or soft tissue mass. IMPRESSION: Improving ileus pattern Interpreted and Authenticated by: All Lundberg 12/20/20
--- NOTE | 2020-12-20 11:20 | Discharge Summary ---
Discharge Provider Provider Patient information: Note initiated : 12/20/20 at 11:13 am Service Date, if different from initiated Date: [] Patient: Dayanna Guo 60 y/o F admitted on 12/13/20 for abd pain. 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 Patient was recently discharged in stable condition but after reaching the nursing care facility she developed recurrent nausea and vomiting. Abdominal x-rays suggested obstruction with massively dilated stomach duodenum and all of small bowel. CT however showed gas out to the stoma in the right lower quadrant. Patient was decompressed with nasogastric tube and started on Regonol IM with good results. After most of the gas was evacuated a small bowel follow-through was carried out. This resulted in output of over 5000 cc of liquid stool. Patient is having gas and stool through her stoma now. Her morning x-rays shows dilated loops of bowel in the mid abdomen but not in an obstructive pattern. Patient is stable and is ready for transfer to [facility] facility. Discharge diagnosis: Chronic intestinal pseudoobstruction Secondary discharge diagnosis: History of small bowel obstruction due to adhesions Reason for admission: Small bowel obstruction Procedures: None Pertinent studies/significant findings: CT of abdomen and pelvis with contrast Small bowel follow-through Complications: None Time Spent with Patient Time attestation: Total time spent providing and/or coordinating discharge services: Physical Examination Vital Signs Vital signs: Temp Pulse Resp BP Pulse Ox 98.2 F 68 20 142/77 95 12/20/20 08:00 12/20/20 08:00 12/20/20 08:00 12/20/20 08:30 12/20/20 08:00 General physical appearance General physical exam: well developed, well nourished, moderate distress, moderate pain, chronically ill and obese Eyes Eye exam: PERRL and normal ocular movement; negative pale and icteric ENT ENT exam: normal mucosa, no hearing loss, no congestion and nasal discharge Head Head exam IM: Present atraumatic, normal inspection and normocephalic Neck Neck exam: no masses, no bruits, trachea midline, no lymphadenopathy and no venous distension Cardiovascular Cardiovascular exam IM: Present +S1, +S2 and tachycardia; Absent JVD and RRR Respiratory Respiratory exam: normal expansion, normal respiratory effort, clear to percussion and clear to auscultation Integumentary Integumentary: Present no rash, no growths and no abnormal pigmentation Neurologic Neurologic: Present normal coordination and normal sensation Psychiatric Psychiatric: Present oriented to time, oriented to person, oriented to place, speech is normal and memory intact Discharge Plan Patient/Caregiver Discharge Instructions Activity: as per physical therapy, increase activity as tolerated, resume usual activities as tolerated and other Diet: Regular Diet and Low Fiber Activity Restrictions/Additional Instructions: no popcorn, no nuts, no leafy vegetables Prescriptions: Continued pyridostigmine bromide 5 mg/mL solution 10 mg IM Q6H Qty: 240 RF: 5 syringe with needle [BD Luer-Archie Syringe] 3 mL 25 gauge x 1" syringe See Rx Instructions .ROUTE .COMPLEX Qty: 100 RF: 4 (DME) filter needles 19 x 1 1/2" 19 x 1 1/2 " needle See Rx Instructions .ROUTE .MEDSUPPLY Qty: 100 RF: 1 promethazine 25 mg tablet 25 mg PO Q6HP PRN (Reason: Nausea) Qty: 60 RF: 3 furosemide [Lasix] 20 mg tablet 20 mg PO QDAY Qty: 30 RF: 1 duloxetine 30 MG capsule 30 mg PO BID RF: 0 levothyroxine 125 MCG tablet 250 mcg PO QAMAC RF: 0 calcitriol 0.25 MCG capsule See Rx Instructions .ROUTE .COMPLEX RF: 0 insulin glargine 1 UNIT/0.01 ML unit 10 unit SQ BID RF: 0 cyclobenzaprine 10 MG tablet 10 mg PO BIDP PRN (Reason: Spasms) RF: 0 magnesium oxide 250 MG tablet 500 mg PO BID RF: 0 promethazine 25 MG suppository 25 mg VT Q6HP PRN (Reason: nausea vomitting) RF: 0 ondansetron 4 MG tablet 4 mg SL Q4HP PRN (Reason: Nausea) RF: 0 metformin 500 MG tablet 500 mg PO BID RF: 0 acetaminophen 325 MG tablet 1,000 mg PO Q6HP PRN (Reason: Pain/Fever > 101) RF: 0 prednisone 20 MG tablet 20 mg PO QAC RF: 0 gabapentin 300 mg capsule 300 mg PO BID RF: 0 pyridostigmine bromide [Mestinon] 60 mg tablet 60 mg PO TID Qty: 90 RF: 3 Accu-Chek 1 EACH strip 1 each FS BID RF: 0 Follow Up Plan Follow up with: Douglas Haque MD [Primary Care Provider] - Bertha Currie MD [Physician] - (Contact office to set up an appointment for 2 weeks) Patient Disposition: Xfer SNF Prognosis: Fair Rehab Potential: Good I certify that the patient requires SNF services: Yes Overall status at discharge: patient is not back to baseline Discharge Orders: Discharge Order (Routine); Ordered 12/20/20 Ordered By: Bertha Currie Pending Pending Pending: Resuscitation Status Full Code Diet GI Soft/Transitional Start SatDec 20 919 Calcitriol (Calcitriol 0.25 Mcg Capsule) 0.25 mcg PO TID [facility] Last Admin: 12/20/20 08:13 Dose: 0.25 mcg Documented by: Admin: 12/19/20 21:04 Dose: 0.25 mcg Documented by: Admin: 12/19/20 14:45 Dose: 0.25 mcg Documented by: Admin: 12/19/20 07:49 Dose: 0.25 mcg Documented by: Admin: 12/18/20 21:25 Dose: 0.25 mcg Documented by: ETHAN Cyclobenzaprine HCl (Cyclobenzaprine 10 Mg Tablet) 10 mg PO BIDP PRN PRN Reason: Muscle Spasm Last Admin: 12/20/20 06:04 Dose: 10 mg Documented by: BRITTNI Diagnostic Test (Pha) (Accu-Chek 1 Each Strip) 1 each FS ACHS [facility]; Protocol Last Admin: 12/20/20 08:12 Dose: 1 each Documented by: Admin: 12/19/20 21:29 Dose: 1 each Documented by: Admin: 12/19/20 18:12 Dose: 1 each Documented by: RAGHU Duloxetine HCl (Duloxetine 30 Mg Capsule) 30 mg PO BID [facility] Last Admin: 12/20/20 08:13 Dose: 30 mg Documented by: Admin: 12/19/20 21:04 Dose: 30 mg Documented by: Admin: 12/19/20 07:49 Dose: 30 mg Documented by: Admin: 12/18/20 21:24 Dose: 30 mg Documented by: ETHAN Gabapentin (Gabapentin 300 Mg Capsule) 300 mg PO BID [facility] Admin: 12/20/20 08:13 Dose: 300 mg Documented by: Admin: 12/19/20 21:04 Dose: 300 mg Documented by: Admin: 12/19/20 07:49 Dose: 300 mg Documented by: Admin: 12/18/20 21:24 Dose: 300 mg Documented by: ETHAN Hydromorphone HCl (Hydromorphone 1 Mg/Ml Syringe) 0.5 mg IV Q3HP PRN; Protocol PRN Reason: Per Pain Protocol Last Admin: 12/20/20 10:38 Dose: 0.5 mg Documented by: Admin: 12/20/20 05:58 Dose: 0.5 mg Documented by: Admin: 12/20/20 02:47 Dose: 0.5 mg Documented by: Admin: 12/20/20 00:01 Dose: 0.5 mg Documented by: Admin: 12/19/20 21:05 Dose: 0.5 mg Documented by: Admin: 12/19/20 18:13 Dose: 0.5 mg Documented by: Admin: 12/19/20 13:53 Dose: 0.5 mg Documented by: Admin: 12/19/20 10:51 Dose: 0.5 mg Documented by: Admin: 12/19/20 06:43 Dose: 0.5 mg Documented by: Admin: 12/19/20 03:36 Dose: 0.5 mg Documented by: Admin: 12/19/20 00:31 Dose: 0.5 mg Documented by: Admin: 12/18/20 21:05 Dose: 0.5 mg Documented by: Admin: 12/18/20 17:23 Dose: 0.5 mg Documented by: Admin: 12/18/20 14:03 Dose: 0.5 mg Documented by: Admin: 12/18/20 11:01 Dose: 0.5 mg Documented by: REHAN Calcium Gluconate 9.3 meq/ (Dextrose) 70 mls @ 70 mls/hr IV Q24H [facility] Last Infusion: 12/19/20 08:59 Dose: 0 mls/hr Documented by: Admin: 12/19/20 07:59 Dose: 70 mls/hr Documented by: Infusion: 12/18/20 09:40 Dose: 0 mls/hr Documented by: Admin: 12/18/20 08:40 Dose: 70 mls/hr Documented by: Infusion: 12/17/20 10:45 Dose: 0 mls/hr Documented by: Admin: 12/17/20 09:42 Dose: 70 mls/hr Documented by: Infusion: 12/16/20 09:50 Dose: 0 mls/hr Documented by: Admin: 12/16/20 08:49 Dose: 70 mls/hr Documented by: Infusion: 12/15/20 15:52 Dose: 0 mls/hr Documented by: Admin: 12/15/20 13:11 Dose: 70 mls/hr Documented by: MIKE Insulin Human Lispro (Insulin Lispro 1 Unit/0.01 Ml Unit) 0 unit SQ [facility]; Protocol Last Admin: 12/20/20 08:12 Dose: 6 unit Documented by: Admin: 12/19/20 21:38 Dose: 6 unit Documented by: Admin: 12/19/20 18:12 Dose: 6 unit Documented by: RAGHU Levothyroxine Sodium (Levothyroxine 100 Mcg Vial) 125 mcg IV QAMAC [facility] Last Admin: 12/20/20 08:13 Dose: 125 mcg Documented by: Admin: 12/19/20 06:42 Dose: 125 mcg Documented by: Admin: 12/18/20 07:03 Dose: 125 mcg Documented by: Admin: 12/17/20 06:58 Dose: 125 mcg Documented by: Admin: 12/16/20 07:01 Dose: 125 mcg Documented by: Admin: 12/15/20 06:42 Dose: 125 mcg Documented by: MIKE Magnesium Oxide (Magnesium Oxide 400 Mg Tablet) 400 mg PO BID [facility] Admin: 12/20/20 08:13 Dose: 400 mg Documented by: Admin: 12/19/20 21:04 Dose: 400 mg Documented by: Admin: 12/19/20 07:49 Dose: 400 mg Documented by: Admin: 12/18/20 21:24 Dose: 400 mg Documented by: ETHAN Methylprednisolone Sodium Succinate (Methylprednisolone Sod Succ 125 Mg/2 Ml Vial) 62.5 mg IV Q8 [facility] Admin: 12/20/20 05:58 Dose: 62.5 mg Documented by: Admin: 12/19/20 21:05 Dose: 62.5 mg Documented by: Admin: 12/19/20 14:45 Dose: 62.5 mg Documented by: Admin: 12/19/20 06:42 Dose: 62.5 mg Documented by: Admin: 12/18/20 21:23 Dose: 62.5 mg Documented by: Admin: 12/18/20 14:01 Dose: 62.5 mg Documented by: Admin: 12/18/20 07:02 Dose: 62.5 mg Documented by: Admin: 12/17/20 20:55 Dose: 62.5 mg Documented by: Admin: 12/17/20 13:41 Dose: 62.5 mg Documented by: Admin: 12/17/20 06:57 Dose: 62.5 mg Documented by: Admin: 12/16/20 21:11 Dose: 62.5 mg Documented by: Admin: 12/16/20 14:11 Dose: 62.5 mg Documented by: Admin: 12/16/20 05:44 Dose: 62.5 mg Documented by: Admin: 12/15/20 21:24 Dose: 62.5 mg Documented by: Admin: 12/15/20 15:49 Dose: 62.5 mg Documented by: Admin: 12/15/20 05:49 Dose: 62.5 mg Documented by: Admin: 12/14/20 21:47 Dose: 62.5 mg Documented by: [email or web address] Ondansetron HCl (Ondansetron 4 Mg/2 Ml Vial) 4 mg IV Q6HP PRN PRN Reason: Nausea And Vomiting Last Admin: 12/18/20 14:40 Dose: 4 mg Documented by: Admin: 12/16/20 08:49 Dose: 4 mg Documented by: Admin: 12/14/20 18:03 Dose: 4 mg Documented by: Admin: 12/14/20 12:39 Dose: 4 mg Documented by: Admin: 12/14/20 05:36 Dose: 4 mg Documented by: Admin: 12/13/20 23:24 Dose: 4 mg Documented by: FERNANDO Ondansetron HCl (Ondansetron 4 Mg Odt Tablet) 4 mg SL Q4HP PRN PRN Reason: Nausea Last Admin: 12/19/20 14:48 Dose: 4 mg Documented by: RAGHU Polyethylene Glycol (Polyethylene Glycol 3350 17 Gm Packet) 17 gm PO QID [facility] Last Admin: 12/20/20 08:13 Dose: 17 gm Documented by: Admin: 12/19/20 21:03 Dose: 17 gm Documented by: Admin: 12/19/20 18:11 Dose: 17 gm Documented by: Admin: 12/19/20 12:28 Dose: 17 gm Documented by: Admin: 12/19/20 07:59 Dose: 17 gm Documented by: Admin: 12/18/20 21:07 Dose: Not Given Documented by: Admin: 12/18/20 17:25 Dose: Not Given Documented by: Admin: 12/18/20 11:56 Dose: 17 gm Documented by: Admin: 12/18/20 08:12 Dose: 17 gm Documented by: Admin: 12/17/20 20:55 Dose: 17 gm Documented by: Admin: 12/17/20 16:51 Dose: 17 gm Documented by: Admin: 12/17/20 12:03 Dose: 17 gm Documented by: Admin: 12/17/20 08:23 Dose: 17 gm Documented by: Admin: 12/16/20 20:48 Dose: 17 gm Documented by: Admin: 12/16/20 17:02 Dose: 17 gm Documented by: Admin: 12/16/20 12:56 Dose: 17 gm Documented by: Admin: 12/16/20 09:06 Dose: 17 gm Documented by: Admin: 12/15/20 21:24 Dose: 17 gm Documented by: Admin: 12/15/20 17:04 Dose: 17 gm Documented by: Admin: 12/15/20 13:11 Dose: 17 gm Documented by: MIKE Promethazine HCl (Promethazine 25 Mg/Ml Vial) 12.5 mg IV Q4HP PRN; Protocol PRN Reason: Nausea/Vomiting Last Admin: 12/19/20 20:05 Dose: 12.5 mg Documented by: Admin: 12/18/20 18:17 Dose: 12.5 mg Documented by: REHAN Pyridostigmine [place] (Pyridostigmine [place] 10 Mg/2 Ml Ml) 10 mg IM Q6H [facility] Last Admin: 12/20/20 05:57 Dose: 10 mg Documented by: Admin: 12/20/20 00:05 Dose: 10 mg Documented by: Admin: 12/19/20 18:13 Dose: 10 mg Documented by: Admin: 12/19/20 12:29 Dose: 10 mg Documented by: Admin: 12/19/20 05:32 Dose: 10 mg Documented by: Admin: 12/18/20 23:29 Dose: 10 mg Documented by: Admin: 12/18/20 18:11 Dose: 10 mg Documented by: Admin: 12/18/20 12:53 Dose: 10 mg Documented by: Admin: 12/18/20 05:12 Dose: 10 mg Documented by: Admin: 12/17/20 23:55 Dose: 10 mg Documented by: Admin: 12/17/20 17:31 Dose: 10 mg Documented by: Admin: 12/17/20 11:49 Dose: 10 mg Documented by: Admin: 12/17/20 05:10 Dose: 10 mg Documented by: Admin: 12/17/20 00:00 Dose: 10 mg Documented by: Admin: 12/16/20 17:30 Dose: 10 mg Documented by: Admin: 12/16/20 12:31 Dose: 10 mg Documented by: Admin: 12/16/20 05:40 Dose: 10 mg Documented by: Admin: 12/15/20 23:50 Dose: 10 mg Documented by: Admin: 12/15/20 17:48 Dose: 10 mg Documented by: Admin: 12/15/20 12:10 Dose: 10 mg Documented by: Admin: 12/15/20 05:37 Dose: 10 mg Documented by: Admin: 12/15/20 00:29 Dose: 10 mg Documented by: Admin: 12/14/20 18:02 Dose: 10 mg Documented by: BROOK Sodium Chloride (0.9 % Sodium Chloride 10 Ml Syringe) 10 ml IV Q8 [facility] Admin: 12/20/20 05:59 Dose: 10 ml Documented by: Admin: 12/19/20 20:05 Dose: 10 ml Documented by: Admin: 12/19/20 14:45 Dose: 10 ml Documented by: Admin: 12/19/20 05:46 Dose: Not Given Documented by: Admin: 12/18/20 21:07 Dose: Not Given Documented by: Admin: 12/18/20 13:53 Dose: Not Given Documented by: Admin: 12/18/20 05:16 Dose: Not Given Documented by: Admin: 12/17/20 20:56 Dose: Not Given Documented by: Admin: 12/17/20 13:59 Dose: Not Given Documented by: Admin: 12/17/20 05:25 Dose: Not Given Documented by: Admin: 12/16/20 21:17 Dose: Not Given Documented by: Admin: 12/16/20 14:12 Dose: 10 ml Documented by: Admin: 12/16/20 05:46 Dose: Not Given Documented by: Admin: 12/15/20 21:24 Dose: Not Given Documented by: Admin: 12/15/20 13:12 Dose: Not Given Documented by: Admin: 12/15/20 05:46 Dose: Not Given Documented by: Admin: 12/14/20 21:48 Dose: Not Given Documented by: Admin: 12/14/20 15:08 Dose: Not Given Documented by: Admin: 12/14/20 05:34 Dose: Not Given Documented by: FERNANDO Shift Summary 12/20/20 03:49 Shift Summary by Rayne Shankar Pt here for chronic SBO. Ostomy now putting out soft, loose stools - several per day - and copious amounts of flatus. Up w/SBA & FWW to BSC or BR, depending on how recently she had meds. Did ambulate w/PT yesterday. PC accessed for meds. Flushes well, but doesn't draw back blood (chronic problem). Getting dilaudid IV for chronic back pain. No PO meds ordered at this time. Midline incision from surgery in Nov healing well. Plan is to d/c today to [facility]. Initialized on 12/20/20 03:49 - END OF NOTE
[2020-12-20 11:52] LABS: ALT/SGPT 17 U/L (<40); AST/SGOT 10 U/L (<32); Albumin 3.6 gm/dL (3.2-5.2); Albumin/Globulin Ratio 1.5 (1.0-2.3); Alkaline Phosphatase 99 U/L (39-117); Bilirubin,Direct < 0.2 mg/dL (0-0.3); Bilirubin,Total 0.4 mg/dL (0.1-1.0); Blood Urea Nitrogen 18 mg/dL (6-20); Calcium 7.3 mg/dL (8.6-10.4); Carbon Dioxide 31 mmol/L (22-30); Chloride 95 mmol/L (96-108); Globulin 2.4 gm/dL (2.2-3.7); Glomerular Filtration Rate 81; Glucose 343 mg/dL (70-105); Lactate Dehydrogenase 457 U/L (135-225); Phosphorous 3.2 mg/dL (2.5-4.5); Triglycerides 279 mg/dL (<150); Uric Acid 3.3 mg/dL (2.5-8.0)
[2020-12-20] MEDS: CALCIUM GLUCONATE 9.3 MEQ in DEXTROSE 5% IN WATER 50 ML IV SCH (12:08)
[2020-12-20] MEDS ORDERED: HEPARIN SODIUM,PORCINE/PF 500 UNIT/5 ML SYRINGE IV ONE (12:32)
== END 2020-12-20 13:20 | DRG 392 ==
LOC: ED 19:01 → ICU 23:03 → MEDSUR 12-17 16:25
PROVIDERS: ADMIT Family Medicine Adult Medicine; ATTEND Family Medicine Adult Medicine

== ENCOUNTER 2020-12-27 15:22 | Inpatient (IN) ==
[2020-12-27] MEDS ORDERED: IOPAMIDOL 100 ML BOTTLE IV ONE (15:23)
[2020-12-27] MEDS ORDERED: 0.9 % SODIUM CHLORIDE 1,000 ML IV ONE (15:51)
[2020-12-27 16:38] LABS: Basophils # (Auto) 0.11 K/mcL (0.00-0.20); Basophils % (Auto) 0.6 % (0.0-2.0); Eosinophils # (Auto) 0.02 K/mcL (0.00-0.70); Eosinophils % (Auto) 0.1 % (0.0-7.0); Hematocrit 50.1 % (36.0-48.0); Lymphocytes # (Auto) 1.75 K/mcL (1.50-4.80); Lymphocytes % (Auto) 8.9 % (15.0-49.0); Mean Cell Volume 90.1 fL (80.0-100.0); Mean Corpuscular HGB Conc 31.9 g/dL (31.0-36.0); Mean Platelet Volume 10.3 fL (7.4-10.4); Monocytes # (Auto) 0.93 K/mcL (0.10-0.90); Monocytes % (Auto) 4.7 % (1.0-12.0); Neutrophils % (Auto) 85.7 % (38.0-78.0); Platelet Count 353 K/mcL (140-440); RBC 5.56 M/mcL (4.00-5.20); Red Cell Distribution Width 13.6 % (11.5-14.5); WBC 19.8 K/mcL (4.5-11.0)
[2020-12-27] MEDS ORDERED: cefTRIAXone 2 GM in DEXTROSE 5% IN WATER 50 ML IV ONE (16:44)
[2020-12-27 16:59] LABS: Thyroid Stimulating Hormone 0.09 uIU/mL (0.27-5.01)
[2020-12-27 17:32] LABS: ALT/SGPT 27 U/L (<40); AST/SGOT 19 U/L (<32); Alkaline Phosphatase 149 U/L (39-117); Bilirubin,Total 0.6 mg/dL (0.1-1.0); Blood Urea Nitrogen 60 mg/dL (6-20); Carbon Dioxide 21 mmol/L (22-30); Chloride 91 mmol/L (96-108); Globulin 3.9 gm/dL (2.2-3.7); Glomerular Filtration Rate 41; Glucose 276 mg/dL (70-105)
--- NOTE | 2020-12-27 17:33 | Emergency Department Note ---
HPI General Chief complaint: Weakness Stated complaint: weakness, cool clammy Time Seen by Provider: 12/27/20 15:51 Source: patient and EMS Mode of arrival: EMS Limitations: physical limitation (Morbid obesity) History of Present Illness HPI Narrative: Narrative: Presents to room T3 of EMS for evaluation of change in mental status. The patient has a long history of significant medical problems including bowel obstructions with subsequent colostomy and morbid obesity. The patient's last known well time is unknown. EMS reports that the patient was identified by staff at the residential to have a decreased level of function from her baseline. EMS was called. EMS notes that the patient's mental status is diminished from baseline as they have made rounds on her multiple times in the past. The patient is awake and alert and does provide history. She denies any complaints other than she feels generally weak. She also reports really cold and clammy. There is no reported headache. No reported fever or chills. No chest pain or shortness of breath. The patient denies any nausea or vomiting. She states that the ostomy output has been normal amount and frequency and she denies any blood or melena. The patient denies any dysuria. The patient also denies any focal motor weakness or sensory numbness. Related Data Home Medications Medication Instructions Recorded Confirmed duloxetine 30 mg PO BID 11/30/16 12/27/20 levothyroxine 250 mcg PO QAMAC 08/20/17 12/27/20 calcitriol See Rx Instructions .ROUTE .COMPLEX 02/11/19 12/27/20 insulin glargine 10 unit SQ BID 09/30/19 12/27/20 cyclobenzaprine 10 mg PO BIDP PRN 12/13/19 12/27/20 magnesium oxide 400 mg PO BID 12/13/19 12/27/20 ondansetron 4 mg SL Q4HP PRN 12/24/19 12/27/20 promethazine 25 mg LA Q6HP PRN 12/24/19 12/27/20 metformin 500 mg PO BID 07/12/20 12/27/20 acetaminophen 1,000 mg PO Q6HP PRN 09/14/20 12/27/20 gabapentin 300 mg PO BID 09/14/20 12/27/20 prednisone 20 mg PO QAC 09/14/20 12/27/20 Accu-Chek 1 each FS BID 12/14/20 12/27/20 calcium carbonate [Tums 500] 500 mg PO TID 12/27/20 12/27/20 metoprolol succinate 50 mg PO DAILY 12/27/20 12/27/20 Previous Rx's Medication Instructions Recorded pyridostigmine bromide 5 mg/mL 10 mg IM Q6H #240 ml 01/04/20 injection solution syringe with needle 3 mL 25 gauge See Rx Instructions .ROUTE 08/31/20 x 1" .COMPLEX #100 unspecified filter needles 19 x 1 1/2" #100 each 10/19/20 promethazine 25 mg tablet 25 mg PO Q6HP PRN #60 tab 11/24/20 furosemide 20 mg tablet 20 mg PO QDAY #30 tab 12/08/20 Allergies Allergy/AdvReac Type Severity Reaction Status Date / Time Sulfa (Sulfonamide Allergy Severe Anaphylaxis Verified 12/27/20 15:25 Antibiotics) adhesive tape AdvReac Mild Blister Verified 12/27/20 15:25 metoclopramide [From Reglan] AdvReac Mild Anxiety Verified 12/27/20 15:25 steri strips AdvReac Mild Blister Uncoded 12/02/19 06:48 Review of Systems ROS ROS Narrative: Narrative: All systems ED: reviewed and negative except as stated. [facility] Narrative Patient History Narrative: Narrative: Medical/Surgical/Family History All Active Problems (Updated 12/27/20 @ 17:44 by Stan Espinal MD) Generalized weakness (Acute) Right knee sprain (Acute) Pneumatosis intestinalis (Acute) Small bowel ischemia (Acute) Recurrent intestinal obstruction (Acute) Intractable abdominal pain (Acute) Intractable vomiting with nausea (Acute) Diabetes mellitus (Acute) Acute UTI (Acute) Hypercalcemia (Acute) COVID-19 (Acute) Acute kidney injury (Acute) Hypercalcemia (Acute) Hyponatremia (Acute) Elevated serum creatinine (Acute) Low back pain (Acute) Partial small bowel obstruction (Acute) Nausea and vomiting (Acute) Hypokalemia (Acute) Hyponatremia (Acute) Elevated LFTs (Acute) Small bowel obstruction (Acute) Dehydration (Acute) Primary chronic pseudo-obstruction of small intestine (Acute) UTI (urinary tract infection) (Acute) Hypocalcemia (Acute) Nausea & vomiting (Acute) Severe sepsis (Acute) 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 (Acute) Chronic, continuous use of opioids (Chronic) Myasthenia gravis (Chronic) Chronic intestinal pseudo-obstruction (Chronic) Recurrent intestinal obstruction (Chronic) Diabetes mellitus type 2, uncontrolled (Chronic) LA (obstructive sleep apnea) (Chronic) Hypertension (Chronic) Obesity, Class II, BMI 35-39.9 (Chronic) Low blood magnesium level (Chronic) Abdominal pain (Chronic) Chronic use of steroids (Chronic) Abnormal liver enzymes (Chronic) Hypothyroidism (Chronic) Sarcoidosis (Chronic) Polyglandular autoimmune syndrome (Chronic) Recurrent abdominal pain (Chronic) Medical History Abdominal pain Abdominal pain Abdominal wound dehiscence Abnormal liver enzymes Achalasia and cardiospasm Acute respiratory insufficiency Adverse reaction to drug Anaphylaxis Bowel obstruction 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 Chronic use of steroids for myasthenia gravis; 10+ years Chronic, continuous use of opioids Constipation due to neurogenic bowel Constipation due to pain medication therapy Dehydration Dehydration Diabetes mellitus type 2, uncontrolled Encounter for care related to Port-a-Cath Fecal impaction Foot sprain Hypercalcemia Hypertension Hypocalcemia Hyponatremia Hypothyroidism Ileus Infiltrate of lung present on imaging of chest Intractable vomiting Lactic acid acidosis Low blood magnesium level Myasthenia gravis Nausea Nausea & vomiting Nausea & vomiting Nausea and vomiting Obesity, Class II, BMI 35-39.9 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 Pseudoobstruction of colon Pyelonephritis Recurrent abdominal pain Recurrent intestinal obstruction many recurrences; many surgical interventions Sarcoidosis Sepsis Sepsis associated hypotension Sepsis with acute hypoxic respiratory failure Severe sepsis Sigmoid volvulus Sinus tachycardia Sinus tachycardia Small bowel obstruction Small bowel obstruction Small bowel obstruction Small bowel obstruction Small bowel obstruction Small bowel obstruction Small bowel obstruction due to adhesions Small bowel obstruction due to postoperative adhesions Small bowel obstruction, partial Supraventricular tachycardia UTI (urinary tract infection) UTI (urinary tract infection) Volvulus of sigmoid colon Surgical History History of exploratory laparotomy 10/17/2017-with adhesiolysis History of exploratory laparotomy 12/01/2017-with adhesiolysis History of exploratory laparotomy 07/18/2018 History of exploratory laparotomy 08/10/2018-Exploratory laparotomy with small bowel adhesiolysis and incisional hernia repair with mesh graft History of exploratory laparotomy 11/30/2020-with total intraabdominal adhesiolysis S/P ileostomy Family History Father CAD (coronary artery disease) Mother CAD (coronary artery disease) Grandfather CVA (cerebral vascular accident) Grandmother CVA (cerebral vascular accident) Social History Smoking Status: Never smoker Alcohol Intake Frequency: does not drink Substance Use: does not use Exam Narrative Narrative: Narrative: General Limitations: physical limitation (Morbid obesity) General appearance: Present alert and in no apparent distress Head Head: Present atraumatic, normocephalic and normal inspection Eye Eye: Present normal appearance and EOMI; Absent conjunctival injection ENT ENT: Present normal exam and mucous membranes moist Neck Neck: Present normal inspection and trachea midline Respiratory Respiratory: Present normal lung sounds bilaterally; Absent respiratory distress Cardiovascular Cardiovascular: Present normal rhythm, tachycardia and normal heart sounds Adbominal Abdominal: Present soft (Limited exam secondary to morbid obesity. The ostomy site appears intact.) and scar; Absent distention, tenderness, guarding and rebound Extremities Extremities: Present normal inspection; Absent tenderness Back Back: Present normal inspection; Absent tenderness Neurological Neurological: Present alert (Limited examination secondary to morbid obesity but no obvious focal motor or sensory deficits), oriented X3 and CN II-XII intact; Absent motor sensory deficit Psychiatric Psychiatric: Present normal affect and normal mood Skin Skin: Present warm (WNL) (Limited examination due to morbid obesity, no obvious skin breakdown or decubitus ulcer. No obvious cellulitis) and dry; Absent rash Course Vital Signs Vital signs: Vital Signs Temperature 97.9 F 12/27/20 15:22 Pulse Rate 126 H 12/27/20 15:22 Respiratory Rate 16 12/27/20 15:22 Blood Pressure 141/109 12/27/20 15:22 Pulse Oximetry (%) 97 12/27/20 15:22 Temperature 97.9 F 12/27/20 15:22 Pulse Rate 125 H 12/27/20 17:19 Respiratory Rate 10 L 12/27/20 17:19 Blood Pressure 146/85 12/27/20 17:19 Pulse Oximetry (%) 95 12/27/20 17:19 [facility] MDM Narrative Medical decision making narrative: Narrative: The patient presents for evaluation of generalized weakness with marked tachycardia. The patient is awake and alert and in no acute distress. Per EMS the patient's mental status is diminished from baseline. Initial labs show elevated WBCs. The patient also was noted to have a lactic acid of 3.9. The patient's presentation is consistent with severe sepsis. The patient did receive IV antibiotics after blood cultures. The patient also received IV fluid. During my care the patient had no episodes of hypotension. Patient currently has laboratory values as well as CT scans of the chest abdomen pelvis. Anticipate the patient will require a dmission for sepsis with the source to be determined. I asked the oncoming physician to follow-up on the lab results and complete the patient's disposition. Lab Data Lab results reviewed: Yes I reviewed the patient's lab results. Result diagrams: 12/27/20 15:47 12/27/20 15:47 Labs: Lab Results 12/27/20 12/27/20 12/27/20 Range/Units 15:47 15:47 15:47 WBC 19.8 H (4.5-11.0) K/mcL RBC 5.56 H (4.00-5.20) M/mcL Hgb 16.0 H (12.0-15.0) g/dL Hct 50.1 H (36.0-48.0) % MCV 90.1 (80.0-100.0) fL MCH 28.8 (26.0-34.0) pg MCHC 31.9 (31.0-36.0) g/dL RDW 13.6 (11.5-14.5) % Plt Count 353 (140-440) K/mcL MPV 10.3 (7.4-10.4) fL Neut % (Auto) 85.7 H (38.0-78.0) % Lymph % (Auto) 8.9 L (15.0-49.0) % [place] % (Auto) 4.7 (1.0-12.0) % Eos % (Auto) 0.1 (0.0-7.0) % Baso % (Auto) 0.6 (0.0-2.0) % Lymph # (Auto) 1.75 (1.50-4.80) K/mcL [place] # (Auto) 0.93 H (0.10-0.90) K/mcL Eos # (Auto) 0.02 (0.00-0.70) K/mcL Baso # (Auto) 0.11 (0.00-0.20) K/mcL Absolute Neutrophils 16.95 H (1.80-8.00) K/mcL D-Dimer (0.27-0.50) ug/mL VBG Lactic Acid 3.9 H* (0.5-2.0) mmol/L Troponin T (<0.03) ng/mL TSH 0.09 L (0.27-5.01) uIU/mL 12/27/20 12/27/20 Range/Units 15:47 15:47 WBC (4.5-11.0) K/mcL RBC (4.00-5.20) M/mcL Hgb (12.0-15.0) g/dL Hct (36.0-48.0) % MCV (80.0-100.0) fL MCH (26.0-34.0) pg MCHC (31.0-36.0) g/dL RDW (11.5-14.5) % Plt Count (140-440) K/mcL MPV (7.4-10.4) fL Neut % (Auto) (38.0-78.0) % Lymph % (Auto) (15.0-49.0) % [place] % (Auto) (1.0-12.0) % Eos % (Auto) (0.0-7.0) % Baso % (Auto) (0.0-2.0) % Lymph # (Auto) (1.50-4.80) K/mcL [place] # (Auto) (0.10-0.90) K/mcL Eos # (Auto) (0.00-0.70) K/mcL Baso # (Auto) (0.00-0.20) K/mcL Absolute Neutrophils (1.80-8.00) K/mcL D-Dimer 0.54 H (0.27-0.50) ug/mL VBG Lactic Acid (0.5-2.0) mmol/L Troponin T 0.02 (<0.03) ng/mL TSH (0.27-5.01) uIU/mL EKG Data EKG #1: EKG attestation: Yes I reviewed and interpreted this EKG. and Yes There are no EKG findings of acute coronary syndrome EKG results narrative: Sinus tachycardia with a rate of 132, normal ST segments, no ectopy, normal QRS Rhythm Strip Data Rhythm Strip Rate: 130 Interpretation: Sinus tachycardia Pulse Oximetry Data Pulse Ox %: 95 Discharge Plan Patient/Caregiver Discharge Instructions Pt seen by ETL MANAGER/PA only: No Clinical Impression: Severe sepsis, Generalized weakness Patient Disposition: Still a Patient Condition: Fair Follow up with: Douglas Haque MD [Primary Care Provider] - Prescriptions: No Action pyridostigmine bromide 5 mg/mL solution 10 mg IM Q6H Qty: 240 RF: 5 syringe with needle [BD Luer-Archie Syringe] 3 mL 25 gauge x 1" syringe See Rx Instructions .ROUTE .COMPLEX Qty: 100 RF: 4 (DME) filter needles 19 x 1 1/2" 19 x 1 1/2 " needle See Rx Instructions .ROUTE .MEDSUPPLY Qty: 100 RF: 1 promethazine 25 mg tablet 25 mg PO Q6HP PRN (Reason: Nausea) Qty: 60 RF: 3 furosemide [Lasix] 20 mg tablet 20 mg PO QDAY Qty: 30 RF: 1 duloxetine 30 MG capsule 30 mg PO BID RF: 0 levothyroxine 125 MCG tablet 250 mcg PO QAMAC RF: 0 calcitriol 0.25 MCG capsule See Rx Instructions .ROUTE .COMPLEX RF: 0 insulin glargine 1 UNIT/0.01 ML unit 10 unit SQ BID RF: 0 cyclobenzaprine 10 MG tablet 10 mg PO BIDP PRN (Reason: Spasms) RF: 0 magnesium oxide 250 MG tablet 400 mg PO BID RF: 0 promethazine 25 MG suppository 25 mg LA Q6HP PRN (Reason: nausea vomitting) RF: 0 ondansetron 4 MG tablet 4 mg SL Q4HP PRN (Reason: Nausea) RF: 0 metformin 500 MG tablet 500 mg PO BID RF: 0 acetaminophen 325 MG tablet 1,000 mg PO Q6HP PRN (Reason: Pain/Fever > 101) RF: 0 prednisone 20 MG tablet 20 mg PO QAMCC RF: 0 gabapentin 300 mg capsule 300 mg PO BID RF: 0 Accu-Chek 1 EACH strip 1 each FS BID RF: 0 calcium carbonate [Tums 500] 500 mg calcium (1,250 mg) Tablet,Chewable 500 mg PO TID RF: 0 metoprolol succinate 50 mg Capsule,Sprinkle,Er 24hr 50 mg PO DAILY RF: 0
[2020-12-27] MEDS ORDERED: ACETAMINOPHEN 325 MG TABLET PO ONE (17:58)
[2020-12-27] MEDS ORDERED: SODIUM POLYSTYRENE SULFONATE 15 GM/60 ML SUSPENSION PO ONE ×2 (18:13→18:43)
[2020-12-27] MEDS ORDERED: SODIUM BICARBONATE 50 MEQ/50 ML VIAL IV ONE (18:13)
[2020-12-27] MEDS ORDERED: FUROSEMIDE 40 MG/4 ML VIAL IV ONE (18:13)
[2020-12-27] MEDS ORDERED: 0.9 % SODIUM CHLORIDE 1,000 ML IV SCH (18:15)
[2020-12-27 18:36] LABS: Appearance,Urine HAZY (Clear); Bacteria,Urine FEW /hpf (0); Bilirubin,Urine Negative (Negative); Color,Urine YELLOW; Culture Indicated,Urine Yes; Glucose,Urine (UA) Negative (Negative); Ketones,Urine Negative (Negative); Leukocyte Esterase,Urine Negative /ug (Negative); Mucus,Urine MANY /hpf; Nitrate,Urine Negative (Negative); Protein,Urine 30 mg/dL (Negative); Specific Gravity,Urine 1.018 (1.000-1.035); Urine Blood Negative (Negative); Urine Hyaline Cast 16 /lph (0-2); Urine RBC 0 /hpf (0-3); Urine Squamous Epithelial Cell 0 /hpf (0-4); Urine WBC 4 /hpf (0-4); Urobilinogen,Urine Negative
--- NOTE | 2020-12-27 18:48 | Cat Scan Report ---
History: tachycardia, elevated serum d-dimer level, sepsis TECHNIQUE: The chest and abdomen were imaged following injection of intravenous contrast scanning the chest during the pulmonary arterial phase. Delayed excretory phase images of the upper abdomen were acquired. Sagittal and coronal reformats were created. The radiation exposure was limited using dose reduction technology. FINDINGS: There is an acute pulmonary embolus in the left lower lobe pulmonary artery. This extends up to the hilum. There may be a small embolus in a peripheral third order branch in the basilar segment of the right lower lobe. The central pulmonary arteries are normal. Right diaphragm is mildly elevated. There are bands of atelectasis in both lung bases. No consolidating infiltrate is present. In the superior segment left lower lobe there is a noncalcified 7 x 8 mm nodule. Laterally in the right upper lobe there is an 8 x 9 mm calcified granuloma. These were both present on a prior chest CT done on 02/22/20 and have not enlarged. No new lung mass has developed. Patient's had a prior sternotomy. The heart size is normal. No pleural or pericardial effusion are present. There are no abnormally enlarged lymph nodes in the mediastinum or david. No consolidating pulmonary infiltrate or abscess are present. There are several bands of atelectasis in the right lower lobe. There is a Port-A-Cath placed with the tip in the superior vena cava. Abdomen and pelvis: There is mild generalized fatty infiltration of the liver. The liver is normal in size and homogeneous. The gallbladder is been removed. Extrahepatic bile ducts are mildly dilated but this is a chronic stable finding. There is atrophy of the pancreas. Spleen is normal. The adrenals and kidneys are normal. The abnormally dilated small bowel seen earlier this month has resolved. There is an ostomy in the right anterior abdominal wall and no inflammation is present around the ostomy. No intra-abdominal mass abscess or ascites are present. Patient's had a prior colectomy. Uterus and ovaries are atrophic. Urinary bladder is decompressed by Martinez catheter. IMPRESSION: Moderate size left lower lobe pulmonary embolus with possible small embolus in a basilar segment of the right lower lobe. Resolution of previously seen small bowel obstruction Dr. Woods was called with the report Interpreted and Authenticated by: Zay Juarez 12/27/20
[2020-12-27] MEDS ORDERED: HEPARIN 5,000 UNIT/ML VIAL IV ONE (19:06)
--- NOTE | 2020-12-27 19:21 | Emergency Department Note ---
HPI General Chief complaint: Weakness Stated complaint: weakness, cool clammy Time Seen by Provider: 12/27/20 15:51 Source: patient and EMS Mode of arrival: EMS Limitations: physical limitation (Morbid obesity) History of Present Illness HPI Narrative: Narrative: Patient signed out to me pending lab and imaging resu lts please refer to Dr. Espinal's note for history and physical. Related Data Home Medications Medication Instructions Recorded Confirmed duloxetine 30 mg PO BID 11/30/16 12/27/20 levothyroxine 250 mcg PO QAMAC 08/20/17 12/27/20 calcitriol See Rx Instructions .ROUTE .COMPLEX 02/11/19 12/27/20 insulin glargine 10 unit SQ BID 09/30/19 12/27/20 cyclobenzaprine 10 mg PO BIDP PRN 12/13/19 12/27/20 magnesium oxide 400 mg PO BID 12/13/19 12/27/20 ondansetron 4 mg SL Q4HP PRN 12/24/19 12/27/20 promethazine 25 mg ME Q6HP PRN 12/24/19 12/27/20 metformin 500 mg PO BID 07/12/20 12/27/20 acetaminophen 1,000 mg PO Q6HP PRN 09/14/20 12/27/20 gabapentin 300 mg PO BID 09/14/20 12/27/20 prednisone 20 mg PO QAWW [facility] [place] 09/14/20 12/27/20 Accu-Chek 1 each FS BID 12/14/20 12/27/20 calcium carbonate [Tums 500] 500 mg PO TID 12/27/20 12/27/20 metoprolol succinate 50 mg PO DAILY 12/27/20 12/27/20 Previous Rx's Medication Instructions Recorded pyridostigmine bromide 5 mg/mL 10 mg IM Q6H #240 ml 01/04/20 injection solution syringe with needle 3 mL 25 gauge See Rx Instructions .ROUTE 08/31/20 x 1" .COMPLEX #100 unspecified filter needles 19 x 1 1/2" #100 each 10/19/20 promethazine 25 mg tablet 25 mg PO Q6HP PRN #60 tab 11/24/20 furosemide 20 mg tablet 20 mg PO QDAY #30 tab 12/08/20 Allergies Allergy/AdvReac Type Severity Reaction Status Date / Time Sulfa (Sulfonamide Allergy Severe Anaphylaxis Verified 12/27/20 15:25 Antibiotics) adhesive tape AdvReac Mild Blister Verified 12/27/20 15:25 metoclopramide [From Reglan] AdvReac Mild Anxiety Verified 12/27/20 15:25 steri strips AdvReac Mild Blister Uncoded 12/02/19 06:48 Review of Systems ROS ROS Narrative: Narrative: PFSH Narrative Patient History Narrative: Narrative: Medical/Surgical/Family History All Active Problems (Updated 12/27/20 @ 19:20 by Deyvi Woods DO) Generalized weakness (Acute) Hypercalcemia (Acute) Acute hyperkalemia (Acute) Leukocytosis (Acute) Acidosis, lactic (Acute) Fever of unknown origin (Acute) Right knee sprain (Acute) Pneumatosis intestinalis (Acute) Small bowel ischemia (Acute) Recurrent intestinal obstruction (Acute) Intractable abdominal pain (Acute) Intractable vomiting with nausea (Acute) Diabetes mellitus (Acute) Acute UTI (Acute) Hypercalcemia (Acute) COVID-19 (Acute) Acute kidney injury (Acute) Hypercalcemia (Acute) Hyponatremia (Acute) Elevated serum creatinine (Acute) Low back pain (Acute) Partial small bowel obstruction (Acute) Nausea and vomiting (Acute) Hypokalemia (Acute) Hyponatremia (Acute) Elevated LFTs (Acute) Small bowel obstruction (Acute) Dehydration (Acute) Primary chronic pseudo-obstruction of small intestine (Acute) UTI (urinary tract infection) (Acute) Hypocalcemia (Acute) Nausea & vomiting (Acute) Severe sepsis (Acute) 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 (Acute) Chronic, continuous use of opioids (Chronic) Myasthenia gravis (Chronic) Chronic intestinal pseudo-obstruction (Chronic) Recurrent intestinal obstruction (Chronic) Diabetes mellitus type 2, uncontrolled (Chronic) LA (obstructive sleep apnea) (Chronic) Hypertension (Chronic) Obesity, Class II, BMI 35-39.9 (Chronic) Low blood magnesium level (Chronic) Abdominal pain (Chronic) Chronic use of steroids (Chronic) Abnormal liver enzymes (Chronic) Hypothyroidism (Chronic) Sarcoidosis (Chronic) Polyglandular autoimmune syndrome (Chronic) Recurrent abdominal pain (Chronic) Medical History Abdominal pain Abdominal pain Abdominal wound dehiscence Abnormal liver enzymes Achalasia and cardiospasm Acute respiratory insufficiency Adverse reaction to drug Anaphylaxis Bowel obstruction 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 Chronic use of steroids for myasthenia gravis; 10+ years Chronic, continuous use of opioids Constipation due to neurogenic bowel Constipation due to pain medication therapy Dehydration Dehydration Diabetes mellitus type 2, uncontrolled Encounter for care related to Port-a-Cath Fecal impaction Foot sprain Hypercalcemia Hypertension Hypocalcemia Hyponatremia Hypothyroidism Ileus Infiltrate of lung present on imaging of chest Intractable vomiting Lactic acid acidosis Low blood magnesium level Myasthenia gravis Nausea Nausea & vomiting Nausea & vomiting Nausea and vomiting Obesity, Class II, BMI 35-39.9 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 Pseudoobstruction of colon Pyelonephritis Recurrent abdominal pain Recurrent intestinal obstruction many recurrences; many surgical interventions Sarcoidosis Sepsis Sepsis associated hypotension Sepsis with acute hypoxic respiratory failure Severe sepsis Sigmoid volvulus Sinus tachycardia Sinus tachycardia Small bowel obstruction Small bowel obstruction Small bowel obstruction Small bowel obstruction Small bowel obstruction Small bowel obstruction Small bowel obstruction due to adhesions Small bowel obstruction due to postoperative adhesions Small bowel obstruction, partial Supraventricular tachycardia UTI (urinary tract infection) UTI (urinary tract infection) Volvulus of sigmoid colon Surgical History History of exploratory laparotomy 10/17/2017-with adhesiolysis History of exploratory laparotomy 12/01/2017-with adhesiolysis History of exploratory laparotomy 07/18/2018 History of exploratory laparotomy 08/10/2018-Exploratory laparotomy with small bowel adhesiolysis and incisional hernia repair with mesh graft History of exploratory laparotomy 11/30/2020-with total intraabdominal adhesiolysis S/P ileostomy Family History Father CAD (coronary artery disease) Mother CAD (coronary artery disease) Grandfather CVA (cerebral vascular accident) Grandmother CVA (cerebral vascular accident) Social History Smoking Status: Never smoker Alcohol Intake Frequency: does not drink Substance Use: does not use Exam Narrative Narrative: Narrative: General Limitations: physical limitation (Morbid obesity) Course Vital Signs Vital signs: Vital Signs Temperature 97.9 F 12/27/20 15:22 Pulse Rate 126 H 12/27/20 15:22 Respiratory Rate 16 12/27/20 15:22 Blood Pressure 141/109 12/27/20 15:22 Pulse Oximetry (%) 97 12/27/20 15:22 Temperature 100.0 F H 12/27/20 18:52 Pulse Rate 117 H 12/27/20 18:52 Respiratory Rate 28 H 12/27/20 18:52 Blood Pressure 130/91 12/27/20 18:50 Pulse Oximetry (%) 95 12/27/20 18:52 MDM MDM Narrative Medical decision making narrative: Narrative: Patient was signed out to me pending labs. Patient did have a leukocytosis she also had many electrolyte abnormalities including hypercalcemia and hyperkalemia. EKG did show peaked T waves. Due to the EKG changes as well as the hyperkalemia I was unable to give calcium due to the high her calcium is so I actually consulted nephrology and spoke with Dr. Spivey who recommended I give Kayexalate 15 mg as well as sodium bicarb 50 mEq as well as Lasix 40 mg as well as starting IV fluids normal saline at 200/h. This is all started he said he will see the patient in consultation did not recommend anything else for the calcium just recommended fluids. Patient with a leukocytosis as well as an elevated lactate of 3.9 she did meet sepsis criteria at this time we do not have a source at this time. She did have a fever. Did give her Tylenol for the fever. She was started on Rocephin which is a broad-spectrum her back at this time but with the normal abdomen pelvis CT showing no signs of infection in the urine only showing few bacteria I do not think it is reasonable to escalate the antibiotics any further. This all could be just secondary to patient's electrolyte abnormalities and we will continue to watch them. This also could just be a viral infection as well. She we did do a chest CT that did show a left lower lobe PE I did start heparin on the patient this is not a saddle embolus or anything that needs thrombolysis at this time per radiology. She also had no signs of pneumonia in the lungs. I did speak with the patient she is okay with being admitted. I did speak with Dr. Currie her surgeon who does follow her closely and said that he will see the patient in consultation as well. I then spoke with the hospitalist Dr. Boyd who will agree to admit the patient and agrees with the plan. Patient will be admitted in fair condition to the ICU. Total critical care time of 32 min including performance of history and physical exam, review of results, re-examinations, time spent documenting, chromosomal disorders counselor, review of old records, discussions with patient and family, discussions with strategic solutions consultant(s), discussion with admitting physician, completion of admission/transfer paperwork. This does not include time for any separately doc umented procedures. Lab Data Result diagrams: 12/27/20 15:47 12/27/20 15:47 Labs: Lab Results 12/27/20 12/27/20 12/27/20 Range/Units 15:47 15:47 15:47 WBC 19.8 H (4.5-11.0) K/mcL RBC 5.56 H (4.00-5.20) M/mcL Hgb 16.0 H (12.0-15.0) g/dL Hct 50.1 H (36.0-48.0) % MCV 90.1 (80.0-100.0) fL MCH 28.8 (26.0-34.0) pg MCHC 31.9 (31.0-36.0) g/dL RDW 13.6 (11.5-14.5) % Plt Count 353 (140-440) K/mcL MPV 10.3 (7.4-10.4) fL Neut % (Auto) 85.7 H (38.0-78.0) % Lymph % (Auto) 8.9 L (15.0-49.0) % Gage % (Auto) 4.7 (1.0-12.0) % Eos % (Auto) 0.1 (0.0-7.0) % Baso % (Auto) 0.6 (0.0-2.0) % Lymph # (Auto) 1.75 (1.50-4.80) K/mcL Gage # (Auto) 0.93 H (0.10-0.90) K/mcL Eos # (Auto) 0.02 (0.00-0.70) K/mcL Baso # (Auto) 0.11 (0.00-0.20) K/mcL Absolute Neutrophils 16.95 H (1.80-8.00) K/mcL D-Dimer (0.27-0.50) ug/mL VBG Lactic Acid 3.9 H* (0.5-2.0) mmol/L Sodium 131 L (133-145) mmol/L Potassium 5.7 H (3.3-5.1) mmol/L Chloride 91 L (96-108) mmol/L Carbon Dioxide 21 L (22-30) mmol/L Anion Gap 19.0 H (8.0-16.0) BUN 60 H (6-20) mg/dL Creatinine 1.4 H (0.6-1.1) mg/dL GFR Calculation 41 Glucose 276 H (70-105) mg/dL Calcium 18.0 H* (8.6-10.4) mg/dL Total Bilirubin 0.6 (0.1-1.0) mg/dL AST 19 (<32) U/L ALT 27 (<40) U/L Alkaline Phosphatase 149 H (39-117) U/L Troponin T (<0.03) ng/mL Total Protein 7.9 (5.9-8.4) gm/dL Albumin 4.0 (3.2-5.2) gm/dL Globulin 3.9 H (2.2-3.7) gm/dL Albumin/Globulin Ratio 1.0 (1.0-2.3) TSH 0.09 L (0.27-5.01) uIU/mL Urine Color Urine Appearance (Clear) Urine pH (5.0-9.0) Ur Specific [place] (1.000-1.035) Urine Protein (Negative) mg/dL Urine Glucose (UA) (Negative) mg/dL Urine Ketones (Negative) mg/dL Urine Occult Blood (Negative) mg/dL Urine Nitrate (Negative) Urine Bilirubin (Negative) mg/dL Urine Urobilinogen mg/dL Ur Leukocyte Esterase (Negative) /ug Urine RBC (0-3) /hpf Urine WBC (0-4) /hpf Ur Squamous Epith Cells (0-4) /hpf Urine Bacteria (0) /hpf Hyaline Casts (0-2) /lph Urine Mucus (None) /hpf Ur Culture Indicated? 12/27/20 12/27/20 12/27/20 Range/Units 15:47 15:47 17:25 WBC (4.5-11.0) K/mcL RBC (4.00-5.20) M/mcL Hgb (12.0-15.0) g/dL Hct (36.0-48.0) % MCV (80.0-100.0) fL MCH (26.0-34.0) pg MCHC (31.0-36.0) g/dL RDW (11.5-14.5) % Plt Count (140-440) K/mcL MPV (7.4-10.4) fL Neut % (Auto) (38.0-78.0) % Lymph % (Auto) (15.0-49.0) % Gage % (Auto) (1.0-12.0) % Eos % (Auto) (0.0-7.0) % Baso % (Auto) (0.0-2.0) % Lymph # (Auto) (1.50-4.80) K/mcL Gage # (Auto) (0.10-0.90) K/mcL Eos # (Auto) (0.00-0.70) K/mcL Baso # (Auto) (0.00-0.20) K/mcL Absolute Neutrophils (1.80-8.00) K/mcL D-Dimer 0.54 H (0.27-0.50) ug/mL VBG Lactic Acid (0.5-2.0) mmol/L Sodium (133-145) mmol/L Potassium (3.3-5.1) mmol/L Chloride (96-108) mmol/L Carbon Dioxide (22-30) mmol/L Anion Gap (8.0-16.0) BUN (6-20) mg/dL Creatinine (0.6-1.1) mg/dL GFR Calculation Glucose (70-105) mg/dL Calcium (8.6-10.4) mg/dL Total Bilirubin (0.1-1.0) mg/dL AST (<32) U/L ALT (<40) U/L Alkaline Phosphatase (39-117) U/L Troponin T 0.02 (<0.03) ng/mL Total Protein (5.9-8.4) gm/dL Albumin (3.2-5.2) gm/dL Globulin (2.2-3.7) gm/dL Albumin/Globulin Ratio (1.0-2.3) TSH (0.27-5.01) uIU/mL Urine Color Yellow Urine Appearance Hazy A (Clear) Urine pH 5.0 (5.0-9.0) Ur Specific [place] 1.018 (1.000-1.035) Urine Protein 30 A (Negative) mg/dL Urine Glucose (UA) Negative (Negative) mg/dL Urine Ketones Negative (Negative) mg/dL Urine Occult Blood Negative (Negative) mg/dL Urine Nitrate Negative (Negative) Urine Bilirubin Negative (Negative) mg/dL Urine Urobilinogen Negative mg/dL Ur Leukocyte Esterase Negative (Negative) /ug Urine RBC 0 (0-3) /hpf Urine WBC 4 (0-4) /hpf Ur Squamous Epith Cells 0 (0-4) /hpf Urine Bacteria Few A (0) /hpf Hyaline Casts 16 H (0-2) /lph Urine Mucus Many A (None) /hpf Ur Culture Indicated? Yes Discharge Plan Patient/Caregiver Discharge Instructions Pt seen by [facility] REPORTER/PA only: No Clinical Impression: Severe sepsis, Generalized weakness, Hypercalcemia, Acute hyperkalemia, Acidosis, lactic, Fever of unknown origin Leukocytosis Qualifiers: Leukocytosis type: unspecified Qualified Code(s): D72.829 - Elevated white blood cell count, unspecified Patient Disposition: Xfer As Inpt ([facility]) Condition: Fair Follow up with: Douglas Haque MD [Primary Care Provider] - Prescriptions: No Action pyridostigmine bromide 5 mg/mL solution 10 mg IM Q6H Qty: 240 RF: 5 syringe with needle [BD Luer-Archie Syringe] 3 mL 25 gauge x 1" syringe See Rx Instructions .ROUTE .COMPLEX Qty: 100 RF: 4 (DME) filter needles 19 x 1 1/2" 19 x 1 1/2 " needle See Rx Instructions .ROUTE .MEDSUPPLY Qty: 100 RF: 1 promethazine 25 mg tablet 25 mg PO Q6HP PRN (Reason: Nausea) Qty: 60 RF: 3 furosemide [Lasix] 20 mg tablet 20 mg PO QDAY Qty: 30 RF: 1 duloxetine 30 MG capsule 30 mg PO BID RF: 0 levothyroxine 125 MCG tablet 250 mcg PO QAMAC RF: 0 calcitriol 0.25 MCG capsule See Rx Instructions .ROUTE .COMPLEX RF: 0 insulin glargine 1 UNIT/0.01 ML unit 10 unit SQ BID RF: 0 cyclobenzaprine 10 MG tablet 10 mg PO BIDP PRN (Reason: Spasms) RF: 0 magnesium oxide 250 MG tablet 400 mg PO BID RF: 0 promethazine 25 MG suppository 25 mg ME Q6HP PRN (Reason: nausea vomitting) RF: 0 ondansetron 4 MG tablet 4 mg SL Q4HP PRN (Reason: Nausea) RF: 0 metformin 500 MG tablet 500 mg PO BID RF: 0 acetaminophen 325 MG tablet 1,000 mg PO Q6HP PRN (Reason: Pain/Fever > 101) RF: 0 prednisone 20 MG tablet 20 mg PO [facility] RF: 0 gabapentin 300 mg capsule 300 mg PO BID RF: 0 Accu-Chek 1 EACH strip 1 each FS BID RF: 0 calcium carbonate [Tums 500] 500 mg calcium (1,250 mg) Tablet,Chewable 500 mg PO TID RF: 0 metoprolol succinate 50 mg Capsule,Sprinkle,Er 24hr 50 mg PO DAILY RF: 0
--- NOTE | 2020-12-27 21:03 | Internal Med History&Physical ---
HPI History of Present Illness Patient information: Note initiated : 12/27/20 at 8:53 pm Service Date, if different from initiated Date: [] Patient: Dayanna Guo a 60 y/o F admitted on for weakness, cool clammy. Chief Complaint: History of present illness: Ms. Guo is a 60 year old F with a history of recurrent bowel obstruction and was recently discharged December 20 to half-way facility. Patient was doing well however over the last 3 days nursing staff has noticed increasing weakness/cough/fatigue malaise and inability to function. She in all probability was exposed to sick contacts. She denies headache or photophobia endorses to weakness myalgia and joint aches. She denies increased ostomy output or dysuria, abdominal pain or distention. EMS was called after facility staff noticed her increasing lethargic and confused. Initial work-up was consistent with severe sepsis elevated white count/lactic acidosis without a clear source. Cultures were drawn patient was started on antibiotic coverage. Calcium at 18 with severe volume depletion. Patient was started on crystalloids. Notably she was discharged on diuretics after recent hospitalization. subsequently nephrology was consulted in light of hypercalcemia/potassium 5.9/acute kidney injury with a creatinine of 1.4. Per nephrology patient was started on crystalloid at 200 cc/bicarbonate drip/Kayexalate. Subsequently hospitalist service was consulted for admission At the time of evaluation patient is very lethargic drowsy and unable to open her eyes. She is barely able to verbalize and provide history. Most of history was obtained from review of medical records and ER physician. No family members present. Review of systems 10 point review system was attempted but could not perform due to patient mental status PFSH PFS All Active Problems (Updated 12/27/20 @ 19:20 by Deyvi Woods DO) Generalized weakness (Acute) Hypercalcemia (Acute) Acute hyperkalemia (Acute) Leukocytosis (Acute) Acidosis, lactic (Acute) Fever of unknown origin (Acute) Right knee sprain (Acute) Pneumatosis intestinalis (Acute) Small bowel ischemia (Acute) Recurrent intestinal obstruction (Acute) Intractable abdominal pain (Acute) Intractable vomiting with nausea (Acute) Diabetes mellitus (Acute) Acute UTI (Acute) Hypercalcemia (Acute) COVID-19 (Acute) Acute kidney injury (Acute) Hypercalcemia (Acute) Hyponatremia (Acute) Elevated serum creatinine (Acute) Low back pain (Acute) Partial small bowel obstruction (Acute) Nausea and vomiting (Acute) Hypokalemia (Acute) Hyponatremia (Acute) Elevated LFTs (Acute) Small bowel obstruction (Acute) Dehydration (Acute) Primary chronic pseudo-obstruction of small intestine (Acute) UTI (urinary tract infection) (Acute) Hypocalcemia (Acute) Nausea & vomiting (Acute) Severe sepsis (Acute) 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 (Acute) Chronic, continuous use of opioids (Chronic) Myasthenia gravis (Chronic) Chronic intestinal pseudo-obstruction (Chronic) Recurrent intestinal obstruction (Chronic) Diabetes mellitus type 2, uncontrolled (Chronic) LA (obstructive sleep apnea) (Chronic) Hypertension (Chronic) Obesity, Class II, BMI 35-39.9 (Chronic) Low blood magnesium level (Chronic) Abdominal pain (Chronic) Chronic use of steroids (Chronic) Abnormal liver enzymes (Chronic) Hypothyroidism (Chronic) Sarcoidosis (Chronic) Polyglandular autoimmune syndrome (Chronic) Recurrent abdominal pain (Chronic) Medical History Abdominal pain Abdominal pain Abdominal wound dehiscence Abnormal liver enzymes Achalasia and cardiospasm Acute respiratory insufficiency Adverse reaction to drug Anaphylaxis Bowel obstruction 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 Chronic use of steroids for myasthenia gravis; 10+ years Chronic, continuous use of opioids Constipation due to neurogenic bowel Constipation due to pain medication therapy Dehydration Dehydration Diabetes mellitus type 2, uncontrolled Encounter for care related to Port-a-Cath Fecal impaction Foot sprain Hypercalcemia Hypertension Hypocalcemia Hyponatremia Hypothyroidism Ileus Infiltrate of lung present on imaging of chest Intractable vomiting Lactic acid acidosis Low blood magnesium level Myasthenia gravis Nausea Nausea & vomiting Nausea & vomiting Nausea and vomiting Obesity, Class II, BMI 35-39.9 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 Pseudoobstruction of colon Pyelonephritis Recurrent abdominal pain Recurrent intestinal obstruction many recurrences; many surgical interventions Sarcoidosis Sepsis Sepsis associated hypotension Sepsis with acute hypoxic respiratory failure Severe sepsis Sigmoid volvulus Sinus tachycardia Sinus tachycardia Small bowel obstruction Small bowel obstruction Small bowel obstruction Small bowel obstruction Small bowel obstruction Small bowel obstruction Small bowel obstruction due to adhesions Small bowel obstruction due to postoperative adhesions Small bowel obstruction, partial Supraventricular tachycardia UTI (urinary tract infection) UTI (urinary tract infection) Volvulus of sigmoid colon Surgical History History of exploratory laparotomy 10/17/2017-with adhesiolysis History of exploratory laparotomy 12/01/2017-with adhesiolysis History of exploratory laparotomy 07/18/2018 History of exploratory laparotomy 08/10/2018-Exploratory laparotomy with small bowel adhesiolysis and incisional hernia repair with mesh graft History of exploratory laparotomy 11/30/2020-with total intraabdominal adhesiolysis S/P ileostomy Family History Father CAD (coronary artery disease) Mother CAD (coronary artery disease) Grandfather CVA (cerebral vascular accident) Grandmother CVA (cerebral vascular accident) Social History smoking status: Never smoker alcohol intake frequency: does not drink substance use type: does not use MEDS/ALLERGIES Home Medications and Allergies Home Medications Medication Instructions Recorded Confirmed Type duloxetine 30 mg PO BID 11/30/16 12/27/20 History levothyroxine 250 mcg PO QAMAC 08/20/17 12/27/20 History calcitriol See Rx Instructions .ROUTE .COMPLEX 02/11/19 12/27/20 History insulin glargine 10 unit SQ BID 09/30/19 12/27/20 History cyclobenzaprine 10 mg PO BIDP PRN 12/13/19 12/27/20 History magnesium oxide 400 mg PO BID 12/13/19 12/27/20 History ondansetron 4 mg SL Q4HP PRN 12/24/19 12/27/20 History promethazine 25 mg ND Q6HP PRN 12/24/19 12/27/20 History pyridostigmine bromide 5 mg/mL 10 mg IM Q6H #240 ml 01/04/20 12/27/20 Rx injection solution metformin 500 mg PO BID 07/12/20 12/27/20 History syringe with needle 3 mL 25 gauge See Rx Instructions .ROUTE 08/31/20 12/27/20 Rx x 1" .COMPLEX #100 unspecified acetaminophen 1,000 mg PO Q6HP PRN 09/14/20 12/27/20 History gabapentin 300 mg PO BID 09/14/20 12/27/20 History prednisone 20 mg PO QAMCC 09/14/20 12/27/20 History filter needles 19 x 1 1/2" #100 each 10/19/20 12/27/20 Rx promethazine 25 mg tablet 25 mg PO Q6HP PRN #60 tab 11/24/20 12/27/20 Rx furosemide 20 mg tablet 20 mg PO QDAY #30 tab 12/08/20 12/27/20 Rx Accu-Chek 1 each FS BID 12/14/20 12/27/20 History calcium carbonate [Tums 500] 500 mg PO TID 12/27/20 12/27/20 History metoprolol succinate 50 mg PO DAILY 12/27/20 12/27/20 History Allergies Allergy/AdvReac Type Severity Reaction Status Date / Time Sulfa (Sulfonamide Allergy Severe Anaphylaxis Verified 12/27/20 15:25 Antibiotics) adhesive tape AdvReac Mild Blister Verified 12/27/20 15:25 metoclopramide [From Reglan] AdvReac Mild Anxiety Verified 12/27/20 15:25 steri strips AdvReac Mild Blister Uncoded 12/02/19 06:48 EXAM Constitutional Vitals: Temp Pulse Resp BP Pulse Ox 100.1 F H 119 H 28 H 123/84 95 12/27/20 20:46 12/27/20 20:46 12/27/20 20:46 12/27/20 20:46 12/27/20 20:46 Lethargic and confused Head normocephalic Oral cavity dry No ear nose discharge Eye movement symmetrical Neck supple no lymphadenopathy S1-S2 tachycardia Rapid shallow nonlabored breathing Nondistended nontender abdomen, colostomy bag draining fecal material Lower extremity no cyanosis clubbing or joint swelling Skin no suspicious lesion Psych anxious, lethargic and confused Neuro GCS 6 DATA Data Completed and Pending Labs: Labs from last 24 hours 12/27/20 12/27/20 12/27/20 19:50 17:25 15:47 WBC RBC Hgb Hct MCV MCH MCHC RDW Plt Count MPV Neut % (Auto) Lymph % (Auto) [place] % (Auto) Eos % (Auto) Baso % (Auto) Lymph # (Auto) [place] # (Auto) Eos # (Auto) Baso # (Auto) Absolute Neutrophils D-Dimer VBG Lactic Acid Pending Sodium Potassium Chloride Carbon Dioxide Anion Gap BUN Creatinine GFR Calculation Glucose Calcium Total Bilirubin AST ALT Alkaline Phosphatase Troponin T 0.02 Total Protein Albumin Globulin Albumin/Globulin Ratio TSH Urine Color Yellow Urine Appearance Hazy A Urine pH 5.0 Ur Specific [place] 1.018 Urine Protein 30 A Urine Glucose (UA) Negative Urine Ketones Negative Urine Occult Blood Negative Urine Nitrate Negative Urine Bilirubin Negative Urine Urobilinogen Negative Ur Leukocyte Esterase Negative Urine RBC 0 Urine WBC 4 Ur Squamous Epith Cells 0 Urine Bacteria Few A Hyaline Casts 16 H Urine Mucus Many A Ur Culture Indicated? Yes 12/27/20 12/27/20 12/27/20 15:47 15:47 15:47 WBC RBC Hgb Hct MCV MCH MCHC RDW Plt Count MPV Neut % (Auto) Lymph % (Auto) [place] % (Auto) Eos % (Auto) Baso % (Auto) Lymph # (Auto) [place] # (Auto) Eos # (Auto) Baso # (Auto) Absolute Neutrophils D-Dimer 0.54 H VBG Lactic Acid 3.9 H* Sodium 131 L Potassium 5.7 H Chloride 91 L Carbon Dioxide 21 L Anion Gap 19.0 H BUN 60 H Creatinine 1.4 H GFR Calculation 41 Glucose 276 H Calcium 18.0 H* Total Bilirubin 0.6 AST 19 ALT 27 Alkaline Phosphatase 149 H Troponin T Total Protein 7.9 Albumin 4.0 Globulin 3.9 H Albumin/Globulin Ratio 1.0 TSH 0.09 L Urine Color Urine Appearance Urine pH Ur Specific [place] Urine Protein Urine Glucose (UA) Urine Ketones Urine Occult Blood Urine Nitrate Urine Bilirubin Urine Urobilinogen Ur Leukocyte Esterase Urine RBC Urine WBC Ur Squamous Epith Cells Urine Bacteria Hyaline Casts Urine Mucus Ur Culture Indicated? 12/27/20 15:47 WBC 19.8 H RBC 5.56 H Hgb 16.0 H Hct 50.1 H MCV 90.1 MCH 28.8 MCHC 31.9 RDW 13.6 Plt Count 353 MPV 10.3 Neut % (Auto) 85.7 H Lymph % (Auto) 8.9 L [place] % (Auto) 4.7 Eos % (Auto) 0.1 Baso % (Auto) 0.6 Lymph # (Auto) 1.75 [place] # (Auto) 0.93 H Eos # (Auto) 0.02 Baso # (Auto) 0.11 Absolute Neutrophils 16.95 H D-Dimer VBG Lactic Acid Sodium Potassium Chloride Carbon Dioxide Anion Gap BUN Creatinine GFR Calculation Glucose Calcium Total Bilirubin AST ALT Alkaline Phosphatase Troponin T Total Protein Albumin Globulin Albumin/Globulin Ratio TSH Urine Color Urine Appearance Urine pH Ur Specific [place] Urine Protein Urine Glucose (UA) Urine Ketones Urine Occult Blood Urine Nitrate Urine Bilirubin Urine Urobilinogen Ur Leukocyte Esterase Urine RBC Urine WBC Ur Squamous Epith Cells Urine Bacteria Hyaline Casts Urine Mucus Ur Culture Indicated? A/P Narrative A/P Narrative: * Severe sepsis with evidence of endorgan dysfunction including THANIA/altered mental status/elevated lactate 3.9, pancultures/broad antibiotic coverage/aggressive source evaluation. CT abdomen chest pelvis no evidence of acute process * Hyperkalemia 5.7, status post Kayexalate managed by nephrology * Hypercalcemia 18 likely secondary volume depletion and calcium supplements. Continue crystalloids/bisphosphonate * Acute kidney injury secondary to volume depletion. Creatinine 1.4, continue crystalloids and monitor renal function. Nephrology on board. * Multifocal PE, start anticoagulation on apixaban. * DM type II continue basal panel insulin/CC diet * Anxiety disorder continue duloxetine * Neuropathy restart home gabapentin once patient more alert * History of hypothyroid continue oxygen * History of recurrent SBO follows up with Dr. Currie surgery. * History of myasthenia gravis continue prednisone/pyridostigmine * Morbid obesity * History of hypertension continue metoprolol * Prophylaxis apixaban Plan * Inpatient ICU admission in light of [place] 2 score 18 signifying high risk mortality * Kayexalate * Nephrology consult * Aggressive crystalloid/bisphosphonate * Sepsis work-up * Repeat calcium/potassium levels * Pre-existing medical condition management on home medications Critical care time spent on management of severe sepsis/hyperkalemia/hypercalcemia/acute kidney injury and pulmonary embolism in excess of 35 minutes in addition to time spent on history and physical Time Spent With Patient Time: Total time spent is greater than 50% in coordination of care (as documented) at patient's floor/unit and/or counseling patient:
[2020-12-27] MEDS ORDERED: VANCOMYCIN 1,500 MG in 0.9 % SODIUM CHLORIDE 500 ML IV ONE (21:15)
[2020-12-27] MEDS ORDERED: ONDANSETRON 4 MG/2 ML VIAL IV PRN (21:29)
[2020-12-27] MEDS ORDERED: MAGNESIUM SULFATE 2 GM/50 ML BAG IV PRN (21:29)
[2020-12-27] MEDS ORDERED: VANCOMYCIN PER PHARMACY IV SCH (21:29)
[2020-12-27] MEDS ORDERED: POTASSIUM CHLORIDE 40 MEQ in DEXTROSE 5% IN WATER 500 ML IV PRN (21:29)
[2020-12-27] MEDS ORDERED: POLYETHYLENE GLYCOL 3350 17 GM PACKET PO PRN (21:29)
[2020-12-27] MEDS ORDERED: BISACODYL 10 MG SUPP.RECT PR PRN (21:29)
[2020-12-27] MEDS ORDERED: MELATONIN 3 MG TABLET PO PRN (21:29)
[2020-12-27] MEDS ORDERED: METOPROLOL TARTRATE 5 MG/5 ML VIAL IV PRN (21:29)
[2020-12-27] MEDS ORDERED: ONDANSETRON 4 MG ODT TABLET SL PRN (21:29)
[2020-12-27] MEDS ORDERED: CYCLOBENZAPRINE (PP) 10 MG TABLET PO PRN (21:29)
[2020-12-27] MEDS ORDERED: POTASSIUM CHLORIDE 20 MEQ PACKET PO PRN (21:29)
[2020-12-27] MEDS ORDERED: PROMETHAZINE 25 MG TABLET PO PRN (21:29)
[2020-12-27] MEDS ORDERED: cefTRIAXone 2 GM in DEXTROSE 5% IN WATER 50 ML IV SCH (21:29)
[2020-12-27] MEDS ORDERED: ACETAMINOPHEN 650 MG/65 ML BAG IV PRN (21:29)
[2020-12-27] MEDS ORDERED: MAGNESIUM OXIDE 250 MG PO SCH (21:29)
[2020-12-27] MEDS ORDERED: ONDANSETRON (PP) 4 MG TABLET SL PRN (21:29)
[2020-12-27] MEDS ORDERED: DEXTROSE 50% 50 ML VIAL IV PRN (21:29)
[2020-12-27] MEDS ORDERED: DEXTROSE 31 GM ORAL.SUSP PO PRN (21:29)
[2020-12-27] MEDS ORDERED: hydrALAZINE 20 MG/ML VIAL IV PRN (21:29)
[2020-12-27] MEDS: 0.9 % SODIUM CHLORIDE 1,000 ML IV SCH ×2 (21:40→23:03)
[2020-12-27] MEDS: INSULIN LISPRO 1 UNIT/0.01 ML UNIT SQ SCH (22:38)
[2020-12-27] MEDS: INSULIN GLARGINE, HUMAN 1 UNIT/0.01 ML SQ SCH (22:38)
[2020-12-27] MEDS: DULoxetine 30 MG CAPSULE PO SCH (22:41)
[2020-12-27] MEDS: SENNOSIDES/DOCUSATE SODIUM 1 TAB TABLET PO SCH (22:41)
[2020-12-27] MEDS: APIXABAN 5 MG TABLET PO SCH (22:41)
[2020-12-27] MEDS: GABAPENTIN 300 MG CAPSULE PO SCH (22:41)
[2020-12-27] MEDS: DOCUSATE SODIUM 100 MG CAPSULE PO SCH (22:41)
[2020-12-27] MEDS: 0.9 % SODIUM CHLORIDE 10 ML SYRINGE IV SCH (22:43)
[2020-12-28] MEDS: 0.9 % SODIUM CHLORIDE 1,000 ML IV SCH ×5 (04:00→23:41)
[2020-12-28] MEDS: 0.9 % SODIUM CHLORIDE 10 ML SYRINGE IV SCH ×3 (05:38→20:38)
[2020-12-28] MEDS ORDERED: ONDANSETRON 4 MG ODT TABLET SL PRN (06:15)
[2020-12-28] MEDS ORDERED: CYCLOBENZAPRINE 10 MG TABLET PO PRN (06:15)
[2020-12-28] MEDS: PYRIDOSTIGMINE BROMIDE 10 MG/2 ML AMPUL IM SCH ×5 (06:39→23:46)
[2020-12-28 07:12] LABS: Basophils # (Auto) 0.06 K/mcL (0.00-0.20); Basophils % (Auto) 0.5 % (0.0-2.0); Eosinophils # (Auto) 0.14 K/mcL (0.00-0.70); Eosinophils % (Auto) 1.1 % (0.0-7.0); Hematocrit 37.3 % (36.0-48.0); Hemoglobin 11.8 g/dL (12.0-15.0); Lymphocytes # (Auto) 2.74 K/mcL (1.50-4.80); Lymphocytes % (Auto) 22.2 % (15.0-49.0); Mean Corpuscular HGB Conc 31.6 g/dL (31.0-36.0); Mean Platelet Volume 10.2 fL (7.4-10.4); Monocytes # (Auto) 1.32 K/mcL (0.10-0.90); Monocytes % (Auto) 10.7 % (1.0-12.0); Neutrophils % (Auto) 65.5 % (38.0-78.0); Platelet Count 245 K/mcL (140-440); RBC 4.01 M/mcL (4.00-5.20); WBC 12.4 K/mcL (4.5-11.0)
[2020-12-28 07:49] LABS: ALT/SGPT 13 U/L (<40); AST/SGOT 9 U/L (<32); Albumin/Globulin Ratio 1.3 (1.0-2.3); Alkaline Phosphatase 98 U/L (39-117); Bilirubin,Direct < 0.2 mg/dL (0-0.3); Bilirubin,Total 0.3 mg/dL (0.1-1.0); Blood Urea Nitrogen 58 mg/dL (6-20); Calcium 12.6 mg/dL (8.6-10.4); Carbon Dioxide 28 mmol/L (22-30); Chloride 102 mmol/L (96-108); Globulin 2.4 gm/dL (2.2-3.7); Glomerular Filtration Rate 45; Glucose 115 mg/dL (70-105); Lactate Dehydrogenase 130 U/L (135-225); Phosphorous 4.6 mg/dL (2.5-4.5); Triglycerides 790 mg/dL (<150); Uric Acid 9.3 mg/dL (2.5-8.0)
[2020-12-28] MEDS: MAGNESIUM OXIDE 400 MG TABLET PO SCH ×2 (08:44→20:37)
[2020-12-28] MEDS: predniSONE 20 MG TABLET PO SCH (08:44)
[2020-12-28] MEDS: THIAMINE 100 MG TABLET PO SCH (08:44)
[2020-12-28] MEDS: MULTIVIT,THER IRON,CA,FA & MIN 1 TABLET PO SCH (08:44)
[2020-12-28] MEDS: LEVOTHYROXINE 125 MCG TABLET PO SCH (08:44)
[2020-12-28] MEDS: METOPROLOL SUCCINATE 50 MG TAB.XL.24H PO SCH (08:45)
[2020-12-28] MEDS: ACETAMINOPHEN 325 MG TABLET PO PRN (08:45)
[2020-12-28] MEDS: GABAPENTIN 300 MG CAPSULE PO SCH ×2 (08:45→20:37)
[2020-12-28] MEDS: FUROSEMIDE 20 MG TABLET PO SCH (08:45)
[2020-12-28] MEDS: APIXABAN 5 MG TABLET PO SCH ×2 (08:53→20:37)
[2020-12-28] MEDS: DOCUSATE SODIUM 100 MG CAPSULE PO SCH ×2 (08:53→20:37)
[2020-12-28] MEDS: DULoxetine 30 MG CAPSULE PO SCH ×2 (08:53→20:36)
[2020-12-28] MEDS ORDERED: VANCOMYCIN 1,500 MG in 0.9 % SODIUM CHLORIDE 500 ML IV SCH (09:00)
[2020-12-28] MEDS: INSULIN LISPRO 1 UNIT/0.01 ML UNIT SQ SCH ×4 (09:05→20:38)
[2020-12-28 09:51] LABS: Vancomycin,Random 25.4 ug/mL
[2020-12-28] MEDS ORDERED: PAMIDRONATE 60 MG in 0.9 % SODIUM CHLORIDE 500 ML IV ONE (10:00)
[2020-12-28] MEDS: cefTRIAXone 2 GM in DEXTROSE 5% IN WATER 50 ML IV SCH (10:56)
[2020-12-28] MEDS: INSULIN GLARGINE, HUMAN 1 UNIT/0.01 ML SQ SCH ×2 (10:57→20:37)
--- NOTE | 2020-12-28 11:03 | General Surgery Consult Note ---
HPI Data of Consult Patient: known to practice within the last 3 years Consult date: 12/28/20 Requesting physician: Prince Sullivan Primary Care Provider: Douglas Haque Consult Narrative Chief complaint: Diffuse weakness; dehydration; electrolyte abnormality History of present illness: 60-year-old female well-known to me with history of chronic intestinal pseudoobstruction. She was recently admitted 12/13/2020 through 12/20/2020 with chronic intestinal pseudoobstruction. She was treated nonoperatively and her intramuscular Regonol was restarted. She also had a Gastrografin small bowel follow-through which led to a output of 5000 cc through her ileostomy. She did well thereafter and tolerated diet and was having regular bowel movements. Abdominal x-rays prior to discharge were basically normal with a single loop of mildly dilated small bowel in the mid abdomen. The patient has been at the nursing care facility since the and had been doing well until about 4 days ago when she noted that she was very weak. She did not have any chest pain or shortness of breath. She denied any abdominal pain. Her weakness progressed to the point that she could not get out of bed. She was brought to the emergency room where it is noted that she has white blood count of 19.2, serum calcium of 18 and BUN of 60. Her lactate was 3.9 and potassium 5.7. It was felt that her main problem is related to excess diuresis. The patient had been receiving furosemide 20 mg daily. This was started in the hospital because of severe anasarca associated with hypoalbuminemia. She had very vigorous diuresis in the hospital and after the output of 5000 cc of liquid stool it is felt that this probably contributed to her intravascular volume depletion. She has been urinating daily. She denies any abdominal pain and she has been having good output through her stoma on a daily basis. CT of chest abdomen and pelvis were done. The abdomen and pelvis films look almost normal without any dilated loops of small bowel or her stomach. There is no evidence to suggest obstruction. The chest CT shows a peripheral cyst segmental embolus that is probably chronic. No she has leukocytosis there is no evidence of actual sepsis on her initial evaluation. Urine culture and blood cultures are pending. There are no findings on chest x-ray to account for her leukocytosis. cc:: CC: Prince Sullivan Constitutional Constitutional: Present anorexia, fatigue, fever(s), lethargy, malaise, weakness and weight loss EENT Eyes: Absent change in vision, diplopia and pain Ears: Absent decreased hearing and tinnitus Nose, mouth and throat: Absent dysphagia, hoarseness, sinus pressure, sore throat and throat swelling Cardiovascular Cardiovascular: Present palpatations and rapid heart rate; Absent chest pain, dyspnea on exertion, lightheadedness, orthopnea and pedal edema Respiratory Respiratory: Absent cough, dyspnea, wheezing, snoring, chest congestion and pain with cough Gastrointestinal Gastrointestinal: Present loose stools and nausea; Absent abdominal pain, belching, change in bowel habits, change in stool character, constipation, cramping and vomiting Genitourinary Genitourinary: Present dysuria, urinary frequency and urinary hesitancy Musculoskeletal Musculoskeletal: Present abnormal gait, arthralgias, muscle cramps, muscle weakness, myalgias and numbness Integumentary Integumentary: Absent pruritus and swelling Neurological Neurological: Present abnormal gait, dizziness, headache(s) and weakness; Absent confusion, convulsions, focal weakness, sensory deficit, syncope and tingling Psychiatric Psychiatric: Present depression and memory loss Endocrine Endocrine: Present palpitations Hematologic/Lymphatic Hematologic/Lymphatic: Present easy bruising; Absent easy bleeding and lymphadenopathy Allergic/Immunologic Allergic/Immunologic: Absent tongue swelling, throat swelling, uticaria, wheezing and lip swelling PFSH PFSH All Active Problems (Updated 12/28/20 @ 11:33 by Bertha Currie MD) Generalized weakness (Acute) Hypercalcemia (Acute) Acute hyperkalemia (Acute) Leukocytosis (Acute) Acidosis, lactic (Acute) Fever of unknown origin (Acute) Right knee sprain (Acute) Pneumatosis intestinalis (Acute) Small bowel ischemia (Acute) Recurrent intestinal obstruction (Acute) Intractable abdominal pain (Acute) Intractable vomiting with nausea (Acute) Diabetes mellitus (Acute) Acute UTI (Acute) Hypercalcemia (Acute) COVID-19 (Acute) Acute kidney injury (Acute) Hypercalcemia (Acute) Hyponatremia (Acute) Elevated serum creatinine (Acute) Low back pain (Acute) Partial small bowel obstruction (Acute) Nausea and vomiting (Acute) Hypokalemia (Acute) Hyponatremia (Acute) Elevated LFTs (Acute) Small bowel obstruction (Acute) Dehydration (Acute) Primary chronic pseudo-obstruction of small intestine (Acute) UTI (urinary tract infection) (Acute) Hypocalcemia (Acute) Nausea & vomiting (Acute) Severe sepsis (Acute) 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 (Acute) Chronic, continuous use of opioids (Chronic) Myasthenia gravis (Chronic) Chronic intestinal pseudo-obstruction (Chronic) Recurrent intestinal obstruction (Chronic) Diabetes mellitus type 2, uncontrolled (Chronic) LA (obstructive sleep apnea) (Chronic) Hypertension (Chronic) Obesity, Class II, BMI 35-39.9 (Chronic) Low blood magnesium level (Chronic) Abdominal pain (Chronic) Chronic use of steroids (Chronic) Abnormal liver enzymes (Chronic) Hypothyroidism (Chronic) Sarcoidosis (Chronic) Polyglandular autoimmune syndrome (Chronic) Recurrent abdominal pain (Chronic) Medical History Abdominal pain Abdominal pain Abdominal wound dehiscence Abnormal liver enzymes Achalasia and cardiospasm Acute respiratory insufficiency Adverse reaction to drug Anaphylaxis Bowel obstruction 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 Chronic use of steroids for myasthenia gravis; 10+ years Chronic, continuous use of opioids Constipation due to neurogenic bowel Constipation due to pain medication therapy Dehydration Dehydration Diabetes mellitus type 2, uncontrolled Encounter for care related to Port-a-Cath Fecal impaction Foot sprain Hypercalcemia Hypertension Hypocalcemia Hyponatremia Hypothyroidism Ileus Infiltrate of lung present on imaging of chest Intractable vomiting Lactic acid acidosis Low blood magnesium level Myasthenia gravis Nausea Nausea & vomiting Nausea & vomiting Nausea and vomiting Obesity, Class II, BMI 35-39.9 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 Pseudoobstruction of colon Pyelonephritis Recurrent abdominal pain Recurrent intestinal obstruction many recurrences; many surgical interventions Sarcoidosis Sepsis Sepsis associated hypotension Sepsis with acute hypoxic respiratory failure Severe sepsis Sigmoid volvulus Sinus tachycardia Sinus tachycardia Small bowel obstruction Small bowel obstruction Small bowel obstruction Small bowel obstruction Small bowel obstruction Small bowel obstruction Small bowel obstruction due to adhesions Small bowel obstruction due to postoperative adhesions Small bowel obstruction, partial Supraventricular tachycardia UTI (urinary tract infection) UTI (urinary tract infection) Volvulus of sigmoid colon Surgical History History of exploratory laparotomy 10/17/2017-with adhesiolysis History of exploratory laparotomy 12/01/2017-with adhesiolysis History of exploratory laparotomy 07/18/2018 History of exploratory laparotomy 08/10/2018-Exploratory laparotomy with small bowel adhesiolysis and incisional hernia repair with mesh graft History of exploratory laparotomy 11/30/2020-with total intraabdominal adhesiolysis S/P ileostomy Family History Father CAD (coronary artery disease) Mother CAD (coronary artery disease) Grandfather CVA (cerebral vascular accident) Grandmother CVA (cerebral vascular accident) Social History smoking status: Never smoker alcohol intake frequency: does not drink substance use type: does not use MEDS/ALLERGIES Home Medications and Allergies Home Medications Medication Instructions Recorded Confirmed Type duloxetine 30 mg PO BID 11/30/16 12/27/20 History levothyroxine 250 mcg PO QAMAC 08/20/17 12/27/20 History calcitriol See Rx Instructions .ROUTE .COMPLEX 02/11/19 12/27/20 History insulin glargine 10 unit SQ BID 09/30/19 12/27/20 History cyclobenzaprine 10 mg PO BIDP PRN 12/13/19 12/27/20 History magnesium oxide 400 mg PO BID 12/13/19 12/27/20 History ondansetron 4 mg SL Q4HP PRN 12/24/19 12/27/20 History promethazine 25 mg AL Q6HP PRN 12/24/19 12/27/20 History pyridostigmine bromide 5 mg/mL 10 mg IM Q6H #240 ml 01/04/20 12/27/20 Rx injection solution metformin 500 mg PO BID 07/12/20 12/27/20 History syringe with needle 3 mL 25 gauge See Rx Instructions .ROUTE 08/31/20 12/27/20 Rx x 1" .COMPLEX #100 unspecified acetaminophen 1,000 mg PO Q6HP PRN 09/14/20 12/27/20 History gabapentin 300 mg PO BID 09/14/20 12/27/20 [facility] 12/27/20 History filter needles 19 x 1 1/2" #100 each 10/19/20 12/27/20 Rx promethazine 25 mg tablet 25 mg PO Q6HP PRN #60 tab 11/24/20 12/27/20 Rx furosemide 20 mg tablet 20 mg PO QDAY #30 tab 12/08/20 12/27/20 Rx Accu-Chek 1 each FS BID 12/14/20 12/27/20 History calcium carbonate [Tums 500] 500 mg PO TID 12/27/20 12/27/20 History metoprolol succinate 50 mg PO DAILY 12/27/20 12/27/20 History Allergies Allergy/AdvReac Type Severity Reaction Status Date / Time Sulfa (Sulfonamide Allergy Severe Anaphylaxis Verified 12/27/20 15:25 Antibiotics) adhesive tape AdvReac Mild Blister Verified 12/27/20 15:25 metoclopramide [From Reglan] AdvReac Mild Anxiety Verified 12/27/20 15:25 steri strips AdvReac Mild Blister Uncoded 12/02/19 06:48 Physical Examination Vital Signs Vital signs: Temp Pulse Resp BP Pulse Ox 96.2 F L 88 21 128/76 99 12/28/20 10:00 12/28/20 10:00 12/28/20 10:00 12/28/20 10:00 12/28/20 10:00 General physical appearance General physical exam: well developed, well nourished, no distress, no pain and chronically ill Eyes Eye exam: PERRL and normal ocular movement; negative pale ENT ENT exam: normal mucosa, no hearing loss and no congestion; negative decreased hearing and poor retirement Head Head exam IM: Present atraumatic, normal inspection and normocephalic Neck Neck exam: no masses, no bruits, trachea midline, no lymphadenopathy and no venous distension Cardiovascular Cardiovascular exam IM: Present RRR, +S1, +S2 and tachycardia; Absent gallop and JVD Respiratory Respiratory exam: normal expansion, normal respiratory effort and clear to auscultation Abdomen Abdomen: Present soft, non tender, bowel sounds and surgical scars (Healed abdominal surgical scars); Absent guarding Neurologic Neurologic: Present normal coordination and normal sensation Musculoskeletal Musculoskeletal: Present normal gait and normal posture Psychiatric Psychiatric: Present oriented to time, oriented to person, oriented to place, speech is normal and memory intact Results Labs Result diagrams: 12/28/20 05:25 12/28/20 05:25 Labs: Abnormal lab results 12/27/20 12/27/20 12/27/20 Range/Units 15:47 15:47 15:47 WBC 19.8 H (4.5-11.0) K/mcL RBC 5.56 H (4.00-5.20) M/mcL Hgb 16.0 H (12.0-15.0) g/dL Hct 50.1 H (36.0-48.0) % Neut % (Auto) 85.7 H (38.0-78.0) % Lymph % (Auto) 8.9 L (15.0-49.0) % Wetzel # (Auto) 0.93 H (0.10-0.90) K/mcL Absolute Neutrophils 16.95 H (1.80-8.00) K/mcL D-Dimer (0.27-0.50) ug/mL VBG Lactic Acid 3.9 H* (0.5-2.0) mmol/L Sodium 131 L (133-145) mmol/L Potassium 5.7 H (3.3-5.1) mmol/L Chloride 91 L (96-108) mmol/L Carbon Dioxide 21 L (22-30) mmol/L Anion Gap 19.0 H (8.0-16.0) BUN 60 H (6-20) mg/dL Creatinine 1.4 H (0.6-1.1) mg/dL Glucose 276 H (70-105) mg/dL Uric Acid (2.5-8.0) mg/dL Calcium 18.0 H* (8.6-10.4) mg/dL Phosphorus (2.5-4.5) mg/dL GGT (5-36) U/L Alkaline Phosphatase 149 H (39-117) U/L Lactate Dehydrogenase (135-225) U/L Total Protein (5.9-8.4) gm/dL Albumin (3.2-5.2) gm/dL Globulin 3.9 H (2.2-3.7) gm/dL Triglycerides (<150) mg/dL Procalcitonin (<0.10) ng/mL TSH 0.09 L (0.27-5.01) uIU/mL Urine Appearance (Clear) Urine Protein (Negative) mg/dL Urine Bacteria (0) /hpf Hyaline Casts (0-2) /lph Urine Mucus (None) /hpf 12/27/20 12/27/20 12/27/20 Range/Units 15:47 17:25 19:50 WBC (4.5-11.0) K/mcL RBC (4.00-5.20) M/mcL Hgb (12.0-15.0) g/dL Hct (36.0-48.0) % Neut % (Auto) (38.0-78.0) % Lymph % (Auto) (15.0-49.0) % Wetzel # (Auto) (0.10-0.90) K/mcL Absolute Neutrophils (1.80-8.00) K/mcL D-Dimer 0.54 H (0.27-0.50) ug/mL VBG Lactic Acid 3.1 H (0.5-2.0) mmol/L Sodium (133-145) mmol/L Potassium (3.3-5.1) mmol/L Chloride (96-108) mmol/L Carbon Dioxide (22-30) mmol/L Anion Gap (8.0-16.0) BUN (6-20) mg/dL Creatinine (0.6-1.1) mg/dL Glucose (70-105) mg/dL Uric Acid (2.5-8.0) mg/dL Calcium (8.6-10.4) mg/dL Phosphorus (2.5-4.5) mg/dL GGT (5-36) U/L Alkaline Phosphatase (39-117) U/L Lactate Dehydrogenase (135-225) U/L Total Protein (5.9-8.4) gm/dL Albumin (3.2-5.2) gm/dL Globulin (2.2-3.7) gm/dL Triglycerides (<150) mg/dL Procalcitonin (<0.10) ng/mL TSH (0.27-5.01) uIU/mL Urine Appearance Hazy A (Clear) Urine Protein 30 A (Negative) mg/dL Urine Bacteria Few A (0) /hpf Hyaline Casts 16 H (0-2) /lph Urine Mucus Many A (None) /hpf 12/27/20 12/28/20 12/28/20 Range/Units 22:05 05:25 05:25 WBC 12.4 H (4.5-11.0) K/mcL RBC (4.00-5.20) M/mcL Hgb 11.8 L (12.0-15.0) g/dL Hct (36.0-48.0) % Neut % (Auto) (38.0-78.0) % Lymph % (Auto) (15.0-49.0) % Wetzel # (Auto) 1.32 H (0.10-0.90) K/mcL Absolute Neutrophils 8.10 H (1.80-8.00) K/mcL D-Dimer (0.27-0.50) ug/mL VBG Lactic Acid (0.5-2.0) mmol/L Sodium (133-145) mmol/L Potassium (3.3-5.1) mmol/L Chloride (96-108) mmol/L Carbon Dioxide (22-30) mmol/L Anion Gap 7.0 L (8.0-16.0) BUN 58 H (6-20) mg/dL Creatinine 1.3 H (0.6-1.1) mg/dL Glucose 115 H (70-105) mg/dL Uric Acid 9.3 H (2.5-8.0) mg/dL Calcium 12.6 H (8.6-10.4) mg/dL Phosphorus 4.6 H (2.5-4.5) mg/dL GGT 38 H (5-36) U/L Alkaline Phosphatase (39-117) U/L Lactate Dehydrogenase 130 L (135-225) U/L Total Protein 5.4 L (5.9-8.4) gm/dL Albumin 3.0 L (3.2-5.2) gm/dL Globulin (2.2-3.7) gm/dL Triglycerides 790 H (<150) mg/dL Procalcitonin 0.35 H (<0.10) ng/mL TSH (0.27-5.01) uIU/mL Urine Appearance (Clear) Urine Protein (Negative) mg/dL Urine Bacteria (0) /hpf Hyaline Casts (0-2) /lph Urine Mucus (None) /hpf Diabetes panel 12/27/20 12/28/20 Range/Units 15:47 05:25 Sodium 131 L 137 (133-145) mmol/L Potassium 5.7 H 4.2 (3.3-5.1) mmol/L Chloride 91 L 102 (96-108) mmol/L Carbon Dioxide 21 L 28 (22-30) mmol/L BUN 60 H 58 H (6-20) mg/dL Creatinine 1.4 H 1.3 H (0.6-1.1) mg/dL Glucose 276 H 115 H (70-105) mg/dL Calcium 18.0 H* 12.6 H (8.6-10.4) mg/dL AST 19 9 (<32) U/L ALT 27 13 (<40) U/L Alkaline Phosphatase 149 H 98 (39-117) U/L Total Protein 7.9 5.4 L (5.9-8.4) gm/dL Albumin 4.0 3.0 L (3.2-5.2) gm/dL Triglycerides 790 H (<150) mg/dL Thyroid panel 12/27/20 Range/Units 15:47 TSH 0.09 L (0.27-5.01) uIU/mL Calcium panel 12/27/20 12/28/20 Range/Units 15:47 05:25 Calcium 18.0 H* 12.6 H (8.6-10.4) mg/dL Phosphorus 4.6 H (2.5-4.5) mg/dL Albumin 4.0 3.0 L (3.2-5.2) gm/dL Pituitary panel 12/27/20 12/28/20 Range/Units 15:47 05:25 Sodium 131 L 137 (133-145) mmol/L Potassium 5.7 H 4.2 (3.3-5.1) mmol/L Chloride 91 L 102 (96-108) mmol/L Carbon Dioxide 21 L 28 (22-30) mmol/L BUN 60 H 58 H (6-20) mg/dL Creatinine 1.4 H 1.3 H (0.6-1.1) mg/dL Glucose 276 H 115 H (70-105) mg/dL Calcium 18.0 H* 12.6 H (8.6-10.4) mg/dL TSH 0.09 L (0.27-5.01) uIU/mL Adrenal panel 12/27/20 12/28/20 Range/Units 15:47 05:25 Sodium 131 L 137 (133-145) mmol/L Potassium 5.7 H 4.2 (3.3-5.1) mmol/L Chloride 91 L 102 (96-108) mmol/L Carbon Dioxide 21 L 28 (22-30) mmol/L BUN 60 H 58 H (6-20) mg/dL Creatinine 1.4 H 1.3 H (0.6-1.1) mg/dL Glucose 276 H 115 H (70-105) mg/dL Calcium 18.0 H* 12.6 H (8.6-10.4) mg/dL Total Bilirubin 0.6 0.3 (0.1-1.0) mg/dL AST 19 9 (<32) U/L ALT 27 13 (<40) U/L Alkaline Phosphatase 149 H 98 (39-117) U/L Total Protein 7.9 5.4 L (5.9-8.4) gm/dL Albumin 4.0 3.0 L (3.2-5.2) gm/dL All other labs normal. 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 Her white blood count is down to 12.4 and her serum calcium is also significantly decreased. Serum potassium is normal. It is felt that her primary problem is excess diuresis leading to acute kidney injury. This has led to hypercalcemia and hyperkalemia and her associated weakness. She is significantly improved with hydration and should continue to improve. There is no evidence that she has any acute problems with her intestinal pseudoobstruction at this time and she can be continued on her baseline medications specifically her intramuscular Regonol for her myasthenia and for the intestinal pseudoobstruction. Since her furosemide is a new addition I would suggest that she have this discontinued and I can follow that up when she is seen in the office. Her serum albumin is corrected now but this is a false correction more related to excess dehydration. Her overall state is that of protein calorie malnutrition due to her short gut syndrome and her many hospitalizations. I will follow her peripherally but will not see her unless reconsulted since there is nothing surgical that is occurring at this time. * * Time Spent With Patient Time: Total time spent is greater than 50% in coordination of care (as documented) at patient's floor/unit and/or counseling patient:
--- NOTE | 2020-12-28 11:25 | Internal Med Progress Note ---
SUBJECTIVE Subjective Patient information: Note initiated : 12/28/20 at 11:22 am Service Date, if different from initiated Date: [] Patient: Dayanna Guo a 60 y/o F admitted on 12/27/20 for weakness, cool clammy. Chief Complaint: [] Interval history: Ms. Guo is a 60 year old F with a history of recurrent bowel obstruction and was recently discharged December 20 to long term facility. Patient was doing well however over the last 3 days nursing staff has noticed increasing weakness/cough/fatigue malaise and inability to function. She in all probability was exposed to sick contacts. She denies headache or photophobia endorses to weakness myalgia and joint aches. She denies increased ostomy output or dysuria, abdominal pain or distention. EMS was called after facility staff noticed her increasing lethargic and confused. Initial work-up was consistent with severe sepsis elevated white count/lactic acidosis without a clear source. Cultures were drawn patient was started on antibiotic coverage. Calcium at 18 with severe volume depletion. Patient was started on crystalloids. Notably she was discharged on diuretics after recent hospitalization. subsequently nephrology was consulted in light of hypercalcemia/potassium 5.9/acute kidney injury with a creatinine of 1.4. Per nephrology patient was started on crystalloid at 200 cc/bicarbonate drip/Kayexalate. Subsequently hospitalist service was consulted for admission At the time of evaluation patient is very lethargic drowsy and unable to open her eyes. She is barely able to verbalize and provide history. Most of history was obtained from review of medical records and ER physician. No family members present. 12/28-patient doing well. Calcium down to 12 from 18. More lucid alert. Bisphosphonates given today. Fever defervesced. White count downtrending from 19 point 8K to 12.4. No obvious source of infection. Case discussed with nephrology. Potassium down to 4.2 post Kayexalate. Ostomy output stable. No evidence of bowel obstruction. Continue existing treatment/crystalloids and supportive management with diet and therapies. Possible transition to SNF in 48 hours. Constitutional Vitals: Vital Signs Temp Pulse Resp BP Pulse Ox 96.4 F L 87 12 97/61 99 12/28/20 11:08 12/28/20 11:08 12/28/20 11:00 12/28/20 11:00 12/28/20 11:08 Period Temp Pulse Resp BP Sys/[place]ule[place] Pulse Ox Last 24 Hr 94.8 F-100.3 F 84-132 10-34 97-150/61-109 91-100 Intake and Output 12/27/20 12/28/20 12/28/20 21:59 05:59 13:59 Intake Total 1547 1994 1170 Output Total 550 325 Balance 997 1670 1170 Weight 99.79 kg 97.069 kg Alert and respond to commands Nonlabored breathing Ostomy output stable with no abdominal tenderness No telemetry events Intake & Output: Intake & Output 12/27/20 12/28/20 12/28/20 21:59 05:59 13:59 Intake Total 1547 1994 117 Output Total 550 325 Balance 997 1670 1170 Weight 99.79 kg 97.069 kg Intake: IV 1541994 450 Sodium Chloride 0.9% 1,000 ml @ 1497 1495 100 mls/hr IV .Q10H [facility] Rx#: [id number] Vancomycin 1,500 mg In Sodium 500 450 Chloride 0.9% 500 ml @ 333.3 mls/hr IV DAILY [facility] Rx#: [id number] Rocephin 2 gm In Dextrose 5% in 50 Water 50 ml @ 100 mls/hr IV ONCE ONE Rx#:[id number] Oral 720 Output: Urine Catheter Amount 550 125 Stool 200 Other: Meal Breakfast Percent of Meal Consumed 100% Feeding Ability Independent Urine Appearance Clear Clear Uretheral (Martinez) Clear Clear Urine Color Pale Bright Yellow Uretheral (Martinez) Bright Yellow Bright Yellow Urine Odor Normal Stool Color Brown Stool Consistency Liquid OBJ DATA Labs CBC & Chem 7: 12/28/20 05:25 12/28/20 05:25 Labs: Abnormal Lab Results 12/28/20 12/28/20 12/27/20 05:25 05:25 22:05 WBC 12.4 H RBC Hgb 11.8 L Hct Neut % (Auto) Lymph % (Auto) [place] # (Auto) 1.32 H Absolute Neutrophils 8.10 H D-Dimer VBG Lactic Acid Sodium Potassium Chloride Carbon Dioxide Anion Gap 7.0 L BUN 58 H Creatinine 1.3 H Glucose 115 H Uric Acid 9.3 H Calcium 12.6 H Phosphorus 4.6 H GGT 38 H Alkaline Phosphatase Lactate Dehydrogenase 130 L Total Protein 5.4 L Albumin 3.0 L Globulin Triglycerides 790 H Procalcitonin 0.35 H TSH Urine Appearance Urine Protein Urine Bacteria Hyaline Casts Urine Mucus 12/27/20 12/27/20 12/27/20 19:50 17:25 15:47 WBC RBC Hgb Hct Neut % (Auto) Lymph % (Auto) [place] # (Auto) Absolute Neutrophils D-Dimer 0.54 H VBG Lactic Acid 3.1 H Sodium Potassium Chloride Carbon Dioxide Anion Gap BUN Creatinine Glucose Uric Acid Calcium Phosphorus GGT Alkaline Phosphatase Lactate Dehydrogenase Total Protein Albumin Globulin Triglycerides Procalcitonin TSH Urine Appearance Hazy A Urine Protein 30 A Urine Bacteria Few A Hyaline Casts 16 H Urine Mucus Many A 12/27/20 12/27/20 12/27/20 15:47 15:47 15:47 WBC 19.8 H RBC 5.56 H Hgb 16.0 H Hct 50.1 H Neut % (Auto) 85.7 H Lymph % (Auto) 8.9 L [place] # (Auto) 0.93 H Absolute Neutrophils 16.95 H D-Dimer VBG Lactic Acid 3.9 H* Sodium 131 L Potassium 5.7 H Chloride 91 L Carbon Dioxide 21 L Anion Gap 19.0 H BUN 60 H Creatinine 1.4 H Glucose 276 H Uric Acid Calcium 18.0 H* Phosphorus GGT Alkaline Phosphatase 149 H Lactate Dehydrogenase Total Protein Albumin Globulin 3.9 H Triglycerides Procalcitonin TSH 0.09 L Urine Appearance Urine Protein Urine Bacteria Hyaline Casts Urine Mucus Meds: Medications Acetaminophen (Acetaminophen 325 Mg Tablet) 650 mg PO Q4-6HP PRN; Protocol PRN Reason: Per Pain Protocol/Fever > 101 Last Admin: 12/28/20 08:45 Dose: 650 mg Documented by: Apixaban (Apixaban 5 Mg Tablet) 5 mg PO BID [facility] Last Admin: 12/28/20 08:53 Dose: 5 mg Documented by: Bisacodyl (Bisacodyl 10 Mg Supp.Rect) 10 mg GA Q2-3DAYS PRN PRN Reason: Constipation Cyclobenzaprine HCl (Cyclobenzaprine 10 Mg Tablet) 10 mg PO BIDP PRN PRN Reason: Spasms Dextrose (Dextrose 50% 50 Ml Vial) 0 ml IV UD PRN PRN Reason: Hypoglycemia Diagnostic Test (Pha) (Accu-Chek 1 Each Strip) 1 each FS ACHS [facility] Last Admin: 12/28/20 08:40 Dose: 1 each Documented by: Docusate Sodium (Docusate Sodium 100 Mg Capsule) 100 mg PO BID [facility] Last Admin: 12/28/20 08:53 Dose: Not Given Documented by: Duloxetine HCl (Duloxetine 30 Mg Capsule) 30 mg PO BID [facility] Last Admin: 12/28/20 08:53 Dose: 30 mg Documented by: Furosemide (Furosemide 20 Mg Tablet) 20 mg PO QDAY [facility] Last Admin: 12/28/20 08:45 Dose: 20 mg Documented by: Gabapentin (Gabapentin 300 Mg Capsule) 300 mg PO BID [facility] Last Admin: 12/28/20 08:45 Dose: 300 mg Documented by: Glucose (Dextrose 31 Gm Oral.Susp) 15 gm PO PRN PRN PRN Reason: Hypoglycemia Hydralazine HCl (Hydralazine 20 Mg/Ml Vial) 10 mg IV Q4-6HP PRN PRN Reason: Hypertension Sodium Chloride (Sodium Chloride 0.9%) 1,000 mls @ 0 mls/hr IV BOLUS [facility] Last Infusion: 12/27/20 23:05 Dose: Infused Documented by: Potassium Chloride 40 meq/ (Dextrose) 520 mls @ 130 mls/hr IV UD PRN PRN Reason: K+ = or < 3.5 Acetaminophen (Ofirmev) 650 mg in 65 mls @ 130 mls/hr IV Q6HP PRN; Protocol PRN Reason: Per Pain Protocol/Fever > 101 Magnesium Sulfate (Magnesium Sulfate) 2 gm in 50 mls @ 50 mls/hr IV UD PRN PRN Reason: MG = or < 1.7 Sodium Chloride (Sodium Chloride 0.9%) 1,000 mls @ 100 mls/hr IV .Q10H [facility] Last Admin: 12/28/20 08:00 Dose: Not Given Documented by: Pamidronate Disodium 60 mg/ (Sodium Chloride) 520 mls @ 130 mls/hr IV ONCE ONE Stop: 12/28/20 13:59 Last Admin: 12/28/20 10:56 Dose: 130 mls/hr Documented by: Ceftriaxone Sodium 2 gm/ (Dextrose) 50 mls @ 100 mls/hr IV DAILY [facility]; Protocol Last Admin: 12/28/20 10:56 Dose: 100 mls/hr Documented by: Insulin Glargine (Insulin Glargine, Human 1 Unit/0.01 Ml) 10 unit SQ BID [facility] Last Admin: 12/28/20 10:57 Dose: 10 units Documented by: Insulin Human Lispro (Insulin Lispro 1 Unit/0.01 Ml Unit) 0 unit SQ [facility]; Protocol Last Admin: 12/28/20 09:05 Dose: Not Given Documented by: Iron Carb/Multivit/Heat Treat Inspector/Folic Acid (Multivit,Ther Iron,Ca,Fa & Min 1 Tablet) 1 tab PO DAILY [facility] Last Admin: 12/28/20 08:44 Dose: 1 tab Documented by: Levothyroxine Sodium (Levothyroxine 125 Mcg Tablet) 250 mcg PO QAMAC [facility] Last Admin: 12/28/20 08:44 Dose: 250 mcg Documented by: Magnesium Oxide (Magnesium Oxide 400 Mg Tablet) 400 mg PO BID [facility] Last Admin: 12/28/20 08:44 Dose: 400 mg Documented by: Melatonin (Melatonin 3 Mg Tablet) 3 mg PO HSP PRN PRN Reason: Insomnia Metoprolol Succinate (Metoprolol Succinate 50 Mg Tab.Xl.24h) 50 mg PO DAILY [facility] Last Admin: 12/28/20 08:45 Dose: 50 mg Documented by: Metoprolol Tartrate (Metoprolol Tartrate 5 Mg/5 Ml Vial) 5 mg IV Q5M PRN PRN Reason: Heart Rate > 140 bpm Ondansetron HCl (Ondansetron 4 Mg Odt Tablet) 4 mg SL Q4-6HP PRN; Protocol PRN Reason: Nausea And Vomiting Ondansetron HCl (Ondansetron 4 Mg/2 Ml Vial) 4 mg IV Q4-6HP PRN; Protocol PRN Reason: Nausea And Vomiting Ondansetron HCl (Ondansetron 4 Mg Odt Tablet) 4 mg SL Q4HP PRN PRN Reason: Nausea Polyethylene Glycol (Polyethylene Glycol 3350 17 Gm Packet) 17 gm PO DAILYP PRN PRN Reason: Constipation Potassium Chloride (Potassium Chloride 20 Meq Packet) 40 meq PO DAILYP PRN PRN Reason: K+ < 3.5 Prednisone ([facility] 20 Mg Tablet) [facility] Last Admin: 12/28/20 08:44 Dose: 20 mg Documented by: Promethazine HCl (Promethazine 25 Mg Tablet) 25 mg PO Q6HP PRN PRN Reason: Nausea Pyridostigmine [place] (Pyridostigmine [place] 10 Mg/2 Ml Ml) 10 mg IM Q6H [facility] Last Admin: 12/28/20 07:26 Dose: Not Given Documented by: Senna/Docusate Sodium (Sennosides/Docusate Sodium 1 Tab Tablet) 1 tab PO HS [facility] Last Admin: 12/27/20 22:41 Dose: Not Given Documented by: Sodium Chloride (0.9 % Sodium Chloride 10 Ml Syringe) 10 ml IV Q8 [facility] Last Admin: 12/28/20 05:38 Dose: Not Given Documented by: Thiamine HCl (Thiamine 100 Mg Tablet) 100 mg PO DAILY [facility] Last Admin: 12/28/20 08:44 Dose: 100 mg Documented by: Vancomycin HCl (Vancomycin Per Pharmacy) 1 order IV UD [facility]; Protocol A/P Narrative A/P Narrative: * Severe sepsis with evidence of endorgan dysfunction including THANIA/altered mental status/elevated lactate 3.9, no clear source identified. Fever defervesced. Clinically improved. Stable hemodynamics. * Hyperkalemia status post Kayexalate , down to 4.2 * Hypercalcemia 18 likely secondary volume depletion -responded well to crystalloids. Calcium down to 12 * Acute kidney injury secondary to volume depletion. Creatinine downtrending * Multifocal PE, start anticoagulation on apixaban. * DM type II continue basal panel insulin/CC diet * Anxiety disorder continue duloxetine * Neuropathy start gabapentin once patient more alert * History of hypothyroid continue oxygen * History of recurrent SBO follows up with Dr. Currie surgery. * History of myasthenia gravis continue prednisone/pyridostigmine * Morbid obesity * History of hypertension continue metoprolol * Prophylaxis apixaban Plan * Continue crystalloids/bisphosphonate * Monitor renal function * Therapy/nutrition support * Restart home medications * Discharge planning Time Spent With Patient Time: Total time spent is greater than 50% in coordination of care (as documented) at patient's floor/unit and/or counseling patient:
[2020-12-28] MEDS: SENNOSIDES/DOCUSATE SODIUM 1 TAB TABLET PO SCH (20:37)
[2020-12-29] MEDS: PYRIDOSTIGMINE BROMIDE 10 MG/2 ML AMPUL IM SCH ×4 (05:40→23:33)
[2020-12-29] MEDS: 0.9 % SODIUM CHLORIDE 10 ML SYRINGE IV SCH ×5 (05:41→20:12)
[2020-12-29] MEDS: 0.9 % SODIUM CHLORIDE 1,000 ML IV SCH ×4 (06:32→22:19)
[2020-12-29 07:08] LABS: Basophils # (Auto) 0.02 K/mcL (0.00-0.20); Basophils % (Auto) 0.3 % (0.0-2.0); Eosinophils # (Auto) 0.18 K/mcL (0.00-0.70); Eosinophils % (Auto) 2.4 % (0.0-7.0); Hematocrit 31.4 % (36.0-48.0); Hemoglobin 9.7 g/dL (12.0-15.0); Lymphocytes # (Auto) 1.48 K/mcL (1.50-4.80); Lymphocytes % (Auto) 19.7 % (15.0-49.0); Mean Cell Volume 93.7 fL (80.0-100.0); Mean Corpuscular HGB Conc 30.9 g/dL (31.0-36.0); Mean Platelet Volume 9.7 fL (7.4-10.4); Monocytes # (Auto) 0.75 K/mcL (0.10-0.90); Neutrophils % (Auto) 67.6 % (38.0-78.0); Platelet Count 197 K/mcL (140-440); RBC 3.35 M/mcL (4.00-5.20); Red Cell Distribution Width 13.8 % (11.5-14.5); WBC 7.5 K/mcL (4.5-11.0)
[2020-12-29] MEDS: LEVOTHYROXINE 125 MCG TABLET PO SCH (07:46)
[2020-12-29] MEDS: INSULIN LISPRO 1 UNIT/0.01 ML UNIT SQ SCH ×4 (07:55→20:12)
[2020-12-29 08:02] LABS: ALT/SGPT 12 U/L (<40); AST/SGOT 9 U/L (<32); Albumin 2.7 gm/dL (3.2-5.2); Albumin/Globulin Ratio 1.4 (1.0-2.3); Alkaline Phosphatase 74 U/L (39-117); Bilirubin,Direct < 0.2 mg/dL (0-0.3); Bilirubin,Total < 0.2 mg/dL (0.1-1.0); Blood Urea Nitrogen 37 mg/dL (6-20); Calcium 9.5 mg/dL (8.6-10.4); Carbon Dioxide 24 mmol/L (22-30); Chloride 106 mmol/L (96-108); Glomerular Filtration Rate 81; Glucose 119 mg/dL (70-105); Lactate Dehydrogenase 124 U/L (135-225); Phosphorous 2.2 mg/dL (2.5-4.5); Triglycerides 514 mg/dL (<150); Uric Acid 6.5 mg/dL (2.5-8.0)
[2020-12-29] MEDS: APIXABAN 5 MG TABLET PO SCH ×2 (08:29→20:12)
[2020-12-29] MEDS: MAGNESIUM OXIDE 400 MG TABLET PO SCH ×2 (08:29→20:11)
[2020-12-29] MEDS: DOCUSATE SODIUM 100 MG CAPSULE PO SCH ×2 (08:29→20:01)
[2020-12-29] MEDS: FUROSEMIDE 20 MG TABLET PO SCH (08:29)
[2020-12-29] MEDS: DULoxetine 30 MG CAPSULE PO SCH ×2 (08:29→20:12)
[2020-12-29] MEDS: predniSONE 20 MG TABLET PO SCH (08:29)
[2020-12-29] MEDS: MULTIVIT,THER IRON,CA,FA & MIN 1 TABLET PO SCH (08:30)
[2020-12-29] MEDS: INSULIN GLARGINE, HUMAN 1 UNIT/0.01 ML SQ SCH ×2 (08:30→20:12)
[2020-12-29] MEDS: GABAPENTIN 300 MG CAPSULE PO SCH ×2 (08:30→20:11)
[2020-12-29] MEDS: METOPROLOL SUCCINATE 50 MG TAB.XL.24H PO SCH (08:30)
[2020-12-29] MEDS: THIAMINE 100 MG TABLET PO SCH (08:30)
[2020-12-29] MEDS: cefTRIAXone 2 GM in DEXTROSE 5% IN WATER 50 ML IV SCH (09:08)
[2020-12-29] MEDS: ACETAMINOPHEN 325 MG TABLET PO PRN (09:54)
--- NOTE | 2020-12-29 10:55 | Internal Med Progress Note ---
SUBJECTIVE Subjective Patient information: Note initiated : 12/29/20 at 10:50 am Service Date, if different from initiated Date: [] Patient: Dyaanna Guo a 60 y/o F admitted on 12/27/20 for weakness, cool clammy. Chief Complaint: [] Interval history: Ms. Guo is a 60 year old F with a history of recurrent bowel obstruction and was recently discharged December 20 to longterm facility. Patient was doing well however over the last 3 days nursing staff has noticed increasing weakness/cough/fatigue malaise and inability to function. She in all probability was exposed to sick contacts. She denies headache or photophobia endorses to weakness myalgia and joint aches. She denies increased ostomy output or dysuria, abdominal pain or distention. EMS was called after facility staff noticed her increasing lethargic and confused. Initial work-up was consistent with severe sepsis elevated white count/lactic acidosis without a clear source. Cultures were drawn patient was started on antibiotic coverage. Calcium at 18 with severe volume depletion. Patient was started on crystalloids. Notably she was discharged on diuretics after recent hospitalization. subsequently nephrology was consulted in light of hypercalcemia/potassium 5.9/acute kidney injury with a creatinine of 1.4. Per nephrology patient was started on crystalloid at 200 cc/bicarbonate drip/Kayexalate. Subsequently hospitalist service was consulted for admission At the time of evaluation patient is very lethargic drowsy and unable to open her eyes. She is barely able to verbalize and provide history. Most of history was obtained from review of medical records and ER physician. No family members present. 12/28-patient doing well. Calcium down to 12 from 18. More lucid alert. Bisphosphonates given today. Fever defervesced. White count downtrending from 19 point 8K to 12.4. No obvious source of infection. Case discussed with nephrology. Potassium down to 4.2 post Kayexalate. Ostomy output stable. No evidence of bowel obstruction. Continue existing treatment/crystalloids and supportive management with diet and therapies. Possible transition to SNF in 48 hours. [id number] cocci in blood culture. Serratia on urine culture. Ant ibiotic escalated to cefepime, continue vancomycin, surveillance cultures, echocardiogram to rule out endocarditis. However clinically improving and improved electrolytes, creatinine 0.8, potassium 3.8, calcium down to 9.5 status post bisphosphonate. No overnight fever chills. Continue close monitoring. Constitutional Vitals: Vital Signs Temp Pulse Resp BP Pulse Ox 97.5 F 84 17 128/72 98 12/29/20 10:10 12/29/20 10:10 12/29/20 10:10 12/29/20 10:01 12/29/20 10:10 Period Temp Pulse Resp BP Sys/[place]uleta Pulse Ox Last 24 Hr 96.3 F-98.4 F 77-103 12-22 97-150/59-106 97-100 Intake and Output 12/28/20 12/29/20 12/29/20 21:59 05:59 13:59 Intake Total 2530 1007 660 Output Total 1300 1100 3050 Balance 1230 -93 -2390 Weight 102.92 kg Alert oriented Nonlabored breathing No anxiety No telemetry events Intake & Output: Intake & Output 12/28/20 12/29/20 12/29/20 21:59 05:59 13:59 Intake Total 2530 1007 660 Output Total 1300 1100 3050 Balance 1230 -93 -2390 Weight 102.92 kg Intake: IV 1570 907 Sodium Chloride 0.9% 1,000 ml @ 1000 907 100 mls/hr IV .Q10H [facility] Rx#: [id number] Aredia 60 mg In Sodium Chloride 520 0.9% 500 ml @ 130 mls/hr IV ONCE ONE Rx#:[id number] Rocephin 2 gm In Dextrose 5% in 50 Water 50 ml @ 100 mls/hr IV DAILY [facility] Rx#:[id number] Oral 960 100 660 Output: Urine Catheter Amount 1050 175 Void Amount 500 Stool 800 793 8439 Other: Meal Dinner Breakfast Percent of Meal Consumed 25% 100% Feeding Ability Independent Urine Appearance Clear Clear Uretheral (Martinez) Clear Clear Urine Color Bright Yellow Bright Yellow Uretheral (Martinez) Bright Yellow Bright Yellow Stool Size Large Moderate Moderate Stool Color Green Green Brown Green Stool Consistency Liquid Liquid Liquid # Bowel Movements 1 OBJ DATA Labs CBC & Chem 7: 12/29/20 06:33 12/29/20 06:33 Labs: Abnormal Lab Results 12/29/20 12/29/20 12/28/20 06:33 06:33 05:25 WBC RBC 3.35 L Hgb 9.7 L Hct 31.4 L MCHC 30.9 L Neut % (Auto) Lymph % (Auto) Lymph # (Auto) 1.48 L [place] # (Auto) Absolute Neutrophils D-Dimer VBG Lactic Acid Sodium Potassium Chloride Carbon Dioxide Anion Gap 5.0 L 7.0 L BUN 37 H 58 H Creatinine 1.3 H Glucose 119 H 115 H Uric Acid 9.3 H Calcium 12.6 H Phosphorus 2.2 L 4.6 H GGT 38 H Alkaline Phosphatase Lactate Dehydrogenase 124 L 130 L Total Protein 4.7 L 5.4 L Albumin 2.7 L 3.0 L Globulin 2.0 L Triglycerides 514 H 790 H Procalcitonin TSH Urine Appearance Urine Protein Urine Bacteria Hyaline Casts Urine Mucus 12/28/20 12/27/20 12/27/20 05:25 22:05 19:50 WBC 12.4 H RBC Hgb 11.8 L Hct MCHC Neut % (Auto) Lymph % (Auto) Lymph # (Auto) [place] # (Auto) 1.32 H Absolute Neutrophils 8.10 H D-Dimer VBG Lactic Acid 3.1 H Sodium Potassium Chloride Carbon Dioxide Anion Gap BUN Creatinine Glucose Uric Acid Calcium Phosphorus GGT Alkaline Phosphatase Lactate Dehydrogenase Total Protein Albumin Globulin Triglycerides Procalcitonin 0.35 H TSH Urine Appearance Urine Protein Urine Bacteria Hyaline Casts Urine Mucus 12/27/20 12/27/20 12/27/20 17:25 15:47 15:47 WBC RBC Hgb Hct MCHC Neut % (Auto) Lymph % (Auto) Lymph # (Auto) [place] # (Auto) Absolute Neutrophils D-Dimer 0.54 H VBG Lactic Acid 3.9 H* Sodium Potassium Chloride Carbon Dioxide Anion Gap BUN Creatinine Glucose Uric Acid Calcium Phosphorus GGT Alkaline Phosphatase Lactate Dehydrogenase Total Protein Albumin Globulin Triglycerides Procalcitonin TSH Urine Appearance Hazy A Urine Protein 30 A Urine Bacteria Few A Hyaline Casts 16 H Urine Mucus Many A 12/27/20 12/27/20 15:47 15:47 WBC 19.8 H RBC 5.56 H Hgb 16.0 H Hct 50.1 H MCHC Neut % (Auto) 85.7 H Lymph % (Auto) 8.9 L Lymph # (Auto) [place] # (Auto) 0.93 H Absolute Neutrophils 16.95 H D-Dimer VBG Lactic Acid Sodium 131 L Potassium 5.7 H Chloride 91 L Carbon Dioxide 21 L Anion Gap 19.0 H BUN 60 H Creatinine 1.4 H Glucose 276 H Uric Acid Calcium 18.0 H* Phosphorus GGT Alkaline Phosphatase 149 H Lactate Dehydrogenase Total Protein Albumin Globulin 3.9 H Triglycerides Procalcitonin TSH 0.09 L Urine Appearance Urine Protein Urine Bacteria Hyaline Casts Urine Mucus Meds: Medications Acetaminophen (Acetaminophen 325 Mg Tablet) 650 mg PO Q4-6HP PRN; Protocol PRN Reason: Per Pain Protocol/Fever > 101 Last Admin: 12/29/20 09:54 Dose: 650 mg Documented by: Apixaban (Apixaban 5 Mg Tablet) 5 mg PO BID [facility] Last Admin: 12/29/20 08:29 Dose: 5 mg Documented by: Bisacodyl (Bisacodyl 10 Mg Supp.Rect) 10 mg NM Q2-3DAYS PRN PRN Reason: Constipation Cefepime HCl (Cefepime 2 Gm Vial) 2 gm IV Q12H [facility]; Protocol Cyclobenzaprine HCl (Cyclobenzaprine 10 Mg Tablet) 10 mg PO BIDP PRN PRN Reason: Spasms Dextrose (Dextrose 50% 50 Ml Vial) 0 ml IV UD PRN PRN Reason: Hypoglycemia Diagnostic Test (Pha) (Accu-Chek 1 Each Strip) 1 each FS ACHS [facility] Last Admin: 12/29/20 07:54 Dose: 1 each Documented by: Docusate Sodium (Docusate Sodium 100 Mg Capsule) 100 mg PO BID [facility] Last Admin: 12/29/20 08:29 Dose: 100 mg Documented by: Duloxetine HCl (Duloxetine 30 Mg Capsule) 30 mg PO BID [facility] Last Admin: 12/29/20 08:29 Dose: 30 mg Documented by: Furosemide (Furosemide 20 Mg Tablet) 20 mg PO QDAY [facility] Last Admin: 12/29/20 08:29 Dose: 20 mg Documented by: Gabapentin (Gabapentin 300 Mg Capsule) 300 mg PO BID [facility] Last Admin: 12/29/20 08:30 Dose: 300 mg Documented by: Glucose (Dextrose 31 Gm Oral.Susp) 15 gm PO PRN PRN PRN Reason: Hypoglycemia Heparin Sodium (Porcine) (Heparin Flush 10 Units/Ml 5 Ml Syringe) 5 ml IV Q12 [facility] Last Admin: 12/29/20 08:30 Dose: Not Given Documented by: Hydralazine HCl (Hydralazine 20 Mg/Ml Vial) 10 mg IV Q4-6HP PRN PRN Reason: Hypertension Potassium Chloride 40 meq/ (Dextrose) 520 mls @ 130 mls/hr IV UD PRN PRN Reason: K+ = or < 3.5 Acetaminophen (Ofirmev) 650 mg in 65 mls @ 130 mls/hr IV Q6HP PRN; Protocol PRN Reason: Per Pain Protocol/Fever > 101 Magnesium Sulfate (Magnesium Sulfate) 2 gm in 50 mls @ 50 mls/hr IV UD PRN PRN Reason: MG = or < 1.7 Last Admin: 12/29/20 09:58 Dose: 50 mls/hr Documented by: Sodium Chloride (Sodium Chloride 0.9%) 1,000 mls @ 100 mls/hr IV .Q10H [facility] Last Admin: 12/29/20 06:32 Dose: Not Given Documented by: Insulin Glargine (Insulin Glargine, Human 1 Unit/0.01 Ml) 10 unit SQ BID [facility] Last Admin: 12/29/20 08:30 Dose: 10 units Documented by: Insulin Human Lispro (Insulin Lispro 1 Unit/0.01 Ml Unit) 0 unit SQ ACHS [facility]; Protocol Last Admin: 12/29/20 07:55 Dose: Not Given Documented by: Iron Carb/Multivit/[place]/Folic Acid (Multivit,Ther Iron,Ca,Fa & Min 1 Tablet) 1 tab PO DAILY [facility] Last Admin: 12/29/20 08:30 Dose: 1 tab Documented by: Levothyroxine Sodium (Levothyroxine 125 Mcg Tablet) 250 mcg PO QAMAC [facility] Last Admin: 12/29/20 07:46 Dose: 250 mcg Documented by: Magnesium Oxide (Magnesium Oxide 400 Mg Tablet) 400 mg PO BID [facility] Last Admin: 12/29/20 08:29 Dose: 400 mg Documented by: Melatonin (Melatonin 3 Mg Tablet) 3 mg PO HSP PRN PRN Reason: Insomnia Metoprolol Succinate (Metoprolol Succinate 50 Mg Tab.Xl.24h) 50 mg PO DAILY [facility] Last Admin: 12/29/20 08:30 Dose: 50 mg Documented by: Metoprolol Tartrate (Metoprolol Tartrate 5 Mg/5 Ml Vial) 5 mg IV Q5M PRN PRN Reason: Heart Rate > 140 bpm Ondansetron HCl (Ondansetron 4 Mg/2 Ml Vial) 4 mg IV Q4-6HP PRN; Protocol PRN Reason: Nausea And Vomiting Ondansetron HCl (Ondansetron 4 Mg Odt Tablet) 4 mg SL Q4HP PRN PRN Reason: Nausea Polyethylene Glycol (Polyethylene Glycol 3350 17 Gm Packet) 17 gm PO DAILYP PRN PRN Reason: Constipation Potassium Chloride (Potassium Chloride 20 Meq Packet) 40 meq PO DAILYP PRN PRN Reason: K+ < 3.5 Prednisone (Prednisone 20 Mg Tablet) 20 mg PO [facility] Last Admin: 12/29/20 08:29 Dose: 20 mg Documented by: Promethazine HCl (Promethazine 25 Mg Tablet) 25 mg PO Q6HP PRN PRN Reason: Nausea Pyridostigmine [place] (Pyridostigmine [place] 10 Mg/2 Ml Ml) 10 mg IM Q6H [facility] Last Admin: 12/29/20 05:40 Dose: 10 mg Documented by: Senna/Docusate Sodium (Sennosides/Docusate Sodium 1 Tab Tablet) 1 tab PO HS [facility] Last Admin: 12/28/20 20:37 Dose: 1 tab Documented by: Sodium Chloride (0.9 % Sodium Chloride 10 Ml Syringe) 10 ml IV Q8 [facility] Last Admin: 12/29/20 05:41 Dose: Not Given Documented by: Sodium Chloride (0.9 % Sodium Chloride 10 Ml Syringe) 10 ml IV Q12 [facility] Last Admin: 12/29/20 08:51 Dose: Not Given Documented by: Thiamine HCl (Thiamine 100 Mg Tablet) 100 mg PO DAILY [facility] Last Admin: 12/29/20 08:30 Dose: 100 mg Documented by: Vancomycin HCl (Vancomycin Per Pharmacy) 1 order IV UD [facility]; Protocol A/P Narrative A/P Narrative: * Severe sepsis with evidence of endorgan dysfunction including THANIA/altered mental status/elevated lactate 3.9, (source [facility]PC bacteremia/Serratia UTI). Antibiotics escalated to cefepime/vancomycin * GPC bacteremia-surveillance cultures/echocardiogram. If persistent ID consult * Complicated Serratia UTI-on cefepime * Hyperkalemia status post Kayexalate , down to 4.2 * Hypercalcemia 18 -now down to 9.5 post bisphosphonate/crystalloids * Acute kidney injury secondary to volume depletion. Creatinine down to baseline * Multifocal PE, continuing anticoagulation on apixaban * DM type II continue basal panel insulin/CC diet * Anxiety disorder continue duloxetine * Neuropathy continue gabapentin * History of hypothyroid continue thyroxine * History of recurrent SBO follows up with Dr. Currie surgery. 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
[2020-12-29] MEDS: CEFEPIME 2 GM VIAL IV SCH ×2 (12:25→20:10)
[2020-12-29] MEDS: SENNOSIDES/DOCUSATE SODIUM 1 TAB TABLET PO SCH (20:01)
[2020-12-30] MEDS: 0.9 % SODIUM CHLORIDE 10 ML SYRINGE IV SCH ×6 (05:31→20:49)
[2020-12-30] MEDS: PYRIDOSTIGMINE BROMIDE 10 MG/2 ML AMPUL IM SCH ×3 (05:31→16:21)
[2020-12-30 07:34] LABS: Basophils # (Auto) 0.03 K/mcL (0.00-0.20); Basophils % (Auto) 0.4 % (0.0-2.0); Eosinophils # (Auto) 0.18 K/mcL (0.00-0.70); Eosinophils % (Auto) 2.1 % (0.0-7.0); Hematocrit 35.8 % (36.0-48.0); Hemoglobin 11.1 g/dL (12.0-15.0); Lymphocytes # (Auto) 1.69 K/mcL (1.50-4.80); Mean Cell Volume 94.7 fL (80.0-100.0); Mean Platelet Volume 9.8 fL (7.4-10.4); Monocytes # (Auto) 1.03 K/mcL (0.10-0.90); Monocytes % (Auto) 12.2 % (1.0-12.0); Neutrophils % (Auto) 65.3 % (38.0-78.0); Platelet Count 226 K/mcL (140-440); RBC 3.78 M/mcL (4.00-5.20); Red Cell Distribution Width 13.9 % (11.5-14.5); WBC 8.4 K/mcL (4.5-11.0)
[2020-12-30 08:00] LABS: ALT/SGPT 14 U/L (<40); AST/SGOT 9 U/L (<32); Albumin 3.4 gm/dL (3.2-5.2); Albumin/Globulin Ratio 1.4 (1.0-2.3); Alkaline Phosphatase 82 U/L (39-117); Bilirubin,Direct < 0.2 mg/dL (0-0.3); Bilirubin,Total < 0.2 mg/dL (0.1-1.0); Blood Urea Nitrogen 27 mg/dL (6-20); Calcium 9.2 mg/dL (8.6-10.4); Carbon Dioxide 18 mmol/L (22-30); Chloride 105 mmol/L (96-108); Globulin 2.4 gm/dL (2.2-3.7); Glomerular Filtration Rate 81; Glucose 135 mg/dL (70-105); Lactate Dehydrogenase 198 U/L (135-225); Phosphorous 1.7 mg/dL (2.5-4.5); Triglycerides 619 mg/dL (<150); Uric Acid 5.7 mg/dL (2.5-8.0)
[2020-12-30] MEDS: predniSONE 20 MG TABLET PO SCH (08:06)
[2020-12-30] MEDS: LEVOTHYROXINE 125 MCG TABLET PO SCH (08:06)
[2020-12-30] MEDS: INSULIN LISPRO 1 UNIT/0.01 ML UNIT SQ SCH ×4 (08:17→19:24)
[2020-12-30] MEDS: 0.9 % SODIUM CHLORIDE 1,000 ML IV SCH ×4 (08:21→22:44)
[2020-12-30] MEDS ORDERED: VANCOMYCIN 1,500 MG in 0.9 % SODIUM CHLORIDE 500 ML IV SCH (09:00)
[2020-12-30] MEDS ORDERED: HYDROcodone/APAP 5/325MG TABLET PO PRN (09:11)
[2020-12-30] MEDS: MAGNESIUM OXIDE 400 MG TABLET PO SCH ×2 (09:23→19:12)
[2020-12-30] MEDS: THIAMINE 100 MG TABLET PO SCH (09:23)
[2020-12-30] MEDS: FUROSEMIDE 20 MG TABLET PO SCH (09:23)
[2020-12-30] MEDS: METOPROLOL SUCCINATE 50 MG TAB.XL.24H PO SCH (09:23)
[2020-12-30] MEDS: MULTIVIT,THER IRON,CA,FA & MIN 1 TABLET PO SCH (09:23)
[2020-12-30] MEDS: APIXABAN 5 MG TABLET PO SCH ×2 (09:23→19:12)
[2020-12-30] MEDS: DULoxetine 30 MG CAPSULE PO SCH ×2 (09:23→19:12)
[2020-12-30] MEDS: DOCUSATE SODIUM 100 MG CAPSULE PO SCH ×2 (09:24→19:12)
[2020-12-30] MEDS: INSULIN GLARGINE, HUMAN 1 UNIT/0.01 ML SQ SCH ×2 (09:24→19:24)
[2020-12-30] MEDS: CEFEPIME 2 GM VIAL IV SCH (09:27)
[2020-12-30] MEDS: GABAPENTIN 300 MG CAPSULE PO SCH ×3 (09:31→19:12)
--- NOTE | 2020-12-30 10:14 | XRay Report ---
HISTORY: Weak, cold and clammy, increased ostomy output FINDINGS: There are a several dilated segments of small intestine in the mid abdomen which contain air-fluid levels. No free intra-abdominal air is present. The caliber of the small intestine has increased since the recent CT done on 12/27/20. There was greater dilatation of the small intestine, with more air-fluid levels on the prior x-ray done on 12/20/20. IMPRESSION: Nonspecific bowel pattern. Patient is known to have chronic dilatation of the small intestine Interpreted and Authenticated by: Zay Juarez 12/30/20
--- NOTE | 2020-12-30 10:20 | Infectious Disease Consult ---
HPI Data of Consult Primary Care Provider: Douglas Haque Consult Narrative cc:: CC: Prince Alan is a 60-year-old woman who was admitted in the hospital on December 27 for sepsis. She is currently day 4 of vancomycin plus cefepime. asked for consultation as patient has positive blood cultures from admission. She is hazel ke alert able to answer questions. She reports a temperature to 101 on the day of admission. She was recently in the hospital December 13 through December 20 for pseudoobstruction under care of Dr. Currie general surgery. She has a previous history of ileostomy placement approximately 2 years ago. She has a left chest port that was placed approximately 2-1/2 years ago. She has venous access difficulties and uses her port frequently. Ileostomy was placed for recurrent bowel obstruction. No current complaints of abdominal pain. Her admit white count was 19.8 with a creatinine of 1.4. White count has improved to 8.4. Today. In addition to the positive blood culture December 27 for gram-positive cocci, a urine culture on December 27 grew Serratia greater than 100,000 colony- forming units. Her UA only showed 4 white cells. She denies dysuria prior to admission. She does recall previously being told she has urinary tract infection history and receives antibiotics but she is often asymptomatic. Chest CT on admission showed a left lower lobe PE and a right lower lobe questionable PE she has an allergy to sulfa. Review of Systems Review of systems: General: Fever on day of admission to 101. She is now doing well. HEENT: No headache or sore throat. No dental complaints. No neck complaints. Pulmonary: No cough or shortness of breath. 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 No current chest pain. GI: Right quadrant ileostomy with high output. No abdominal pain. : No dysuria. Extremities: No lower extremity edema. Skin no complaints of rash but she does have upper extremity ecchymosis. PFSH PFSH All Active Problems (Updated 12/30/20 @ 10:23 by Deep Rubio MD) Generalized weakness (Acute) Hypercalcemia (Acute) Acute hyperkalemia (Acute) Leukocytosis (Acute) Acidosis, lactic (Acute) Fever of unknown origin (Acute) Right knee sprain (Acute) Pneumatosis intestinalis (Acute) Small bowel ischemia (Acute) Recurrent intestinal obstruction (Acute) Intractable abdominal pain (Acute) Intractable vomiting with nausea (Acute) Diabetes mellitus (Acute) Acute UTI (Acute) Hypercalcemia (Acute) COVID-19 (Acute) Acute kidney injury (Acute) Hypercalcemia (Acute) Hyponatremia (Acute) Elevated serum creatinine (Acute) Low back pain (Acute) Partial small bowel obstruction (Acute) Nausea and vomiting (Acute) Hypokalemia (Acute) Hyponatremia (Acute) Elevated LFTs (Acute) Small bowel obstruction (Acute) Dehydration (Acute) Primary chronic pseudo-obstruction of small intestine (Acute) UTI (urinary tract infection) (Acute) Hypocalcemia (Acute) Nausea & vomiting (Acute) Severe sepsis (Acute) 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 (Acute) Chronic, continuous use of opioids (Chronic) Myasthenia gravis (Chronic) Chronic intestinal pseudo-obstruction (Chronic) Recurrent intestinal obstruction (Chronic) Diabetes mellitus type 2, uncontrolled (Chronic) LA (obstructive sleep apnea) (Chronic) Hypertension (Chronic) Obesity, Class II, BMI 35-39.9 (Chronic) Low blood magnesium level (Chronic) Abdominal pain (Chronic) Chronic use of steroids (Chronic) Abnormal liver enzymes (Chronic) Hypothyroidism (Chronic) Sarcoidosis (Chronic) Polyglandular autoimmune syndrome (Chronic) Recurrent abdominal pain (Chronic) Medical History Abdominal pain Abdominal pain Abdominal wound dehiscence Abnormal liver enzymes Achalasia and cardiospasm Acute respiratory insufficiency Adverse reaction to drug Anaphylaxis Bowel obstruction 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 Chronic use of steroids for myasthenia gravis; 10+ years Chronic, continuous use of opioids Constipation due to neurogenic bowel Constipation due to pain medication therapy Dehydration Dehydration Diabetes mellitus type 2, uncontrolled Encounter for care related to Port-a-Cath Fecal impaction Foot sprain Hypercalcemia Hypertension Hypocalcemia Hyponatremia Hypothyroidism Ileus Infiltrate of lung present on imaging of chest Intractable vomiting Lactic acid acidosis Low blood magnesium level Myasthenia gravis Nausea Nausea & vomiting Nausea & vomiting Nausea and vomiting Obesity, Class II, BMI 35-39.9 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 Pseudoobstruction of colon Pyelonephritis Recurrent abdominal pain Recurrent intestinal obstruction many recurrences; many surgical interventions Sarcoidosis Sepsis Sepsis associated hypotension Sepsis with acute hypoxic respiratory failure Severe sepsis Sigmoid volvulus Sinus tachycardia Sinus tachycardia Small bowel obstruction Small bowel obstruction Small bowel obstruction Small bowel obstruction Small bowel obstruction Small bowel obstruction Small bowel obstruction due to adhesions Small bowel obstruction due to postoperative adhesions Small bowel obstruction, partial Supraventricular tachycardia UTI (urinary tract infection) UTI (urinary tract infection) Volvulus of sigmoid colon Surgical History History of exploratory laparotomy 10/17/2017-with adhesiolysis History of exploratory laparotomy 12/01/2017-with adhesiolysis History of exploratory laparotomy 07/18/2018 History of exploratory laparotomy 08/10/2018-Exploratory laparotomy with small bowel adhesiolysis and incision al hernia repair with mesh graft History of exploratory laparotomy 11/30/2020-with total intraabdominal adhesiolysis S/P ileostomy Family History Father CAD (coronary artery disease) Mother CAD (coronary artery disease) Grandfather CVA (cerebral vascular accident) Grandmother CVA (cerebral vascular accident) Social History smoking status: Never smoker alcohol intake frequency: does not drink substance use type: does not use MEDS/ALLERGIES Home Medications and Allergies Home Medications Medication Instructions Recorded Confirmed Type duloxetine 30 mg PO BID 11/30/16 12/27/20 History levothyroxine 250 mcg PO QAMAC 08/20/17 12/27/20 History calcitriol See Rx Instructions .ROUTE .COMPLEX 02/11/19 12/27/20 History insulin glargine 10 unit SQ BID 09/30/19 12/27/20 History cyclobenzaprine 10 mg PO BIDP PRN 12/13/19 12/27/20 History magnesium oxide 400 mg PO BID 12/13/19 12/27/20 History ondansetron 4 mg SL Q4HP PRN 12/24/19 12/27/20 History promethazine 25 mg FL Q6HP PRN 12/24/19 12/27/20 History pyridostigmine bromide 5 mg/mL 10 mg IM Q6H #240 ml 01/04/20 12/27/20 Rx injection solution metformin 500 mg PO BID 07/12/20 12/27/20 History syringe with needle 3 mL 25 gauge See Rx Instructions .ROUTE 08/31/20 12/27/20 Rx x 1" .COMPLEX #100 unspecified acetaminophen 1,000 mg PO Q6HP PRN 09/14/20 12/27/20 History gabapentin 300 mg PO BID 09/14/20 12/27/20 History prednisone 20 mg PO QAC 09/14/20 12/27/20 History filter needles 19 x 1 1/2" #100 each 10/19/20 12/27/20 Rx promethazine 25 mg tablet 25 mg PO Q6HP PRN #60 tab 11/24/20 12/27/20 Rx furosemide 20 mg tablet 20 mg PO QDAY #30 tab 12/08/20 12/27/20 Rx Accu-Chek 1 each FS BID 12/14/20 12/27/20 History calcium carbonate [Tums 500] 500 mg PO TID 12/27/20 12/27/20 History metoprolol succinate 50 mg PO DAILY 12/27/20 12/27/20 History Allergies Allergy/AdvReac Type Severity Reaction Status Date / Time Sulfa (Sulfonamide Allergy Severe Anaphylaxis Verified 12/27/20 15:25 Antibiotics) adhesive tape AdvReac Mild Blister Verified 12/27/20 15:25 metoclopramide [From Reglan] AdvReac Mild Anxiety Verified 12/27/20 15:25 steri strips AdvReac Mild Blister Uncoded 12/02/19 06:48 Physical Examination Vital Signs Vital signs: Temp Pulse Resp BP Pulse Ox 97.4 F 90 18 136/99 96 12/30/20 08:01 12/30/20 08:01 12/30/20 08:01 12/30/20 08:01 12/30/20 08:01 Additional Exam Additional exam: General: Pleasant cooperative in no acute distress. She is able to fully answer all of my questions. HEENT: Anicteric sclerae. Mouth is moist no thrush. EOMI PERRL sclera is anicteric. Pupils are quite dilated. Neck is full supple no cervical adenopathy. Lungs are clear bilaterally. Heart: Regular rate and rhythm without murmur. Chest: Left chest port without swelling or redness. Abdomen: Morbidly obese. No erythema. Right quadrant ileostomy with liquid output. Extremities: No lower extremity edema. No peripheral signs of endocarditis such as Janeway lesions Osler nodes or splinter hemorrhages. Skin is without rash. She does have upper extremity ecchymosis. Results Laboratory Findings CBC and BMP: 12/30/20 04:55 12/30/20 04:55 ABG, PT/INR, D-dimer: PT/INR, D-dimer D-Dimer 0.54 ug/mL (0.27-0.50) H 12/27/20 15:47 Abnormal lab findings: Abnormal Labs 12/27/20 12/27/20 12/27/20 15:47 15:47 15:47 WBC 19.8 H RBC 5.56 H Hgb 16.0 H Hct 50.1 H MCHC Neut % (Auto) 85.7 H Lymph % (Auto) 8.9 L [place]haw % (Auto) Lymph # (Auto) [place] # (Auto) 0.93 H Absolute Neutrophils 16.95 H D-Dimer VBG Lactic Acid 3.9 H* Sodium 131 L Potassium 5.7 H Chloride 91 L Carbon Dioxide 21 L Anion Gap 19.0 H BUN 60 H Creatinine 1.4 H Glucose 276 H Uric Acid Calcium 18.0 H* Phosphorus GGT Alkaline Phosphatase 149 H Lactate Dehydrogenase Total Protein Albumin Globulin 3.9 H Triglycerides Procalcitonin TSH 0.09 L Urine Appearance Urine Protein Urine Bacteria Hyaline Casts Urine Mucus 12/27/20 12/27/20 12/27/20 15:47 17:25 19:50 WBC RBC Hgb Hct MCHC Neut % (Auto) Lymph % (Auto) [place] % (Auto) Lymph # (Auto) [place] # (Auto) Absolute Neutrophils D-Dimer 0.54 H VBG Lactic Acid 3.1 H Sodium Potassium Chloride Carbon Dioxide Anion Gap BUN Creatinine Glucose Uric Acid Calcium Phosphorus GGT Alkaline Phosphatase Lactate Dehydrogenase Total Protein Albumin Globulin Triglycerides Procalcitonin TSH Urine Appearance Hazy A Urine Protein 30 A Urine Bacteria Few A Hyaline Casts 16 H Urine Mucus Many A 12/27/20 12/28/20 12/28/20 22:05 05:25 05:25 WBC 12.4 H RBC Hgb 11.8 L Hct MCHC Neut % (Auto) Lymph % (Auto) [place] % (Auto) Lymph # (Auto) [place] # (Auto) 1.32 H Absolute Neutrophils 8.10 H D-Dimer VBG Lactic Acid Sodium Potassium Chloride Carbon Dioxide Anion Gap 7.0 L BUN 58 H Creatinine 1.3 H Glucose 115 H Uric Acid 9.3 H Calcium 12.6 H Phosphorus 4.6 H GGT 38 H Alkaline Phosphatase Lactate Dehydrogenase 130 L Total Protein 5.4 L Albumin 3.0 L Globulin Triglycerides 790 H Procalcitonin 0.35 H TSH Urine Appearance Urine Protein Urine Bacteria Hyaline Casts Urine Mucus 12/29/20 12/29/20 12/30/20 06:33 06:33 04:55 WBC RBC 3.35 L 3.78 L Hgb 9.7 L 11.1 L Hct 31.4 L 35.8 L MCHC 30.9 L Neut % (Auto) Lymph % (Auto) [place] % (Auto) 12.2 H Lymph # (Auto) 1.48 L [place] # (Auto) 1.03 H Absolute Neutrophils D-Dimer VBG Lactic Acid Sodium Potassium Chloride Carbon Dioxide Anion Gap 5.0 L BUN 37 H Creatinine Glucose 119 H Uric Acid Calcium Phosphorus 2.2 L GGT Alkaline Phosphatase Lactate Dehydrogenase 124 L Total Protein 4.7 L Albumin 2.7 L Globulin 2.0 L Triglycerides 514 H Procalcitonin TSH Urine Appearance Urine Protein Urine Bacteria Hyaline Casts Urine Mucus 12/30/20 04:55 WBC RBC Hgb Hct MCHC Neut % (Auto) Lymph % (Auto) [place] % (Auto) Lymph # (Auto) [place] # (Auto) Absolute Neutrophils D-Dimer VBG Lactic Acid Sodium Potassium Chloride Carbon Dioxide 18 L Anion Gap BUN 27 H Creatinine Glucose 135 H Uric Acid Calcium Phosphorus 1.7 L GGT Alkaline Phosphatase Lactate Dehydrogenase Total Protein 5.8 L Albumin Globulin Triglycerides 619 H Procalcitonin TSH Urine Appearance Urine Protein Urine Bacteria Hyaline Casts Urine Mucus Microbiology: Microbiology 12/27/20 16:43 Blood Blood Culture - Preliminary Gram positive cocci 12/27/20 17:25 Urine - Catheterized Urine Culture - Final Serratia marcescens Admit creatinine 1.4. Admit white count 19.8. December 29 Vanco trough 14. December 30 white count 8.4. December 27 blood culture with gram-positive cocci yet to be identified. On December 27 urine culture revealed Serratia greater than 100,000 colony-forming units the UA only showed 4 white cells however. Chest CT revealed left lower lobe PE. A/P Assessment and plan (1) Severe sepsis: Status: Acute Comment: Dayanna is a 60-year-old morbidly obese diabetic with prednisone-dependent myasthenia gravis. She is currently hospital day 4 admitted for sepsis with acute kidney injury and leukocytosis. Leukocytosis has improved. Sepsis parameters have improved. She is currently day 4 of IV vancomycin and cefepime. She has bacteremia with gram-positive cocci yet to be determined. I am not convinced that she has a Serratia UTI. She was asymptomatic with a UA only with 4 white blood cells. I would recommend discontinuing cefepime. I do recommend continuing vancomycin until ID and sensitivity of the gram-positive cocci. Source of gram-positive cocci could be from bowel, heart valve, or port. The port appears normal. Typically, I would recommend 2 weeks of IV therapy once blood cultures are negative. I would recommend echocardiogram as well as surveillance blood cultures. She denies abdominal pain symptoms. No current urinary symptoms. I do believe that this is a true bacteremia and not a contaminant. Await further identification of organism, however. (2) Myasthenia gravis: Status: Chronic Comment: Prednisone dependent at 20 mg daily. (3) Obesity, Class II, BMI 35-39.9: Status: Chronic Comment: Chronic. (4) Chronic use of steroids: Status: Chronic Comment: for myasthenia gravis; 10+ years, she started using steroids in 2002. (5) Diabetes mellitus: Status: Acute Comment: Chronic. Recommendations: 1. Repeat surveillance blood cultures. 2. Check echocardiogram. 3. DC cefepime. 4. Continue vancomycin with goal trough 15-18. 5. Duration of IV antibiotic yet to be determined, but expect 2 weeks from first negative blood culture. May be able to adjust antibiotic therapy depending on antibiotic susceptibilities. Please contact me for bacterial identification and susceptibility. I would be happy to answer any questions for further antibiotic plans. Thank you very much. Qualifiers: Diabetes mellitus type: type 2 Diabetes mellitus skilled nursing insulin use: with skilled nursing use Diabetes mellitus complication status: without complication Qualified Code(s): E11.9 - Type 2 diabetes mellitus without complications; Z79.4 - FPC (current) use of insulin Time Spent With Patient Time: Total time spent is greater than 50% in coordination of care (as documented) at patient's floor/unit and/or counseling patient:
--- NOTE | 2020-12-30 11:30 | Internal Med Progress Note ---
SUBJECTIVE Subjective Patient information: Note initiated : 12/30/20 at 11:25 am Service Date, if different from initiated Date: [] Patient: Dayanna Guo a 60 y/o F admitted on 12/27/20 for weakness, cool clammy. Chief Complaint: [] Interval history: Ms. Guo is a 60 year old F with a history of recurrent bowel obstruction and was recently discharged December 20 to half-way facility. Patient was doing well however over the last 3 days nursing staff has noticed increasing weakness/cough/fatigue malaise and inability to function. She in all probability was exposed to sick contacts. She denies headache or photophobia endorses to weakness myalgia and joint aches. She denies increased ostomy output or dysuria, abdominal pain or distention. EMS was called after facility staff noticed her increasing lethargic and confused. Initial work-up was consistent with severe sepsis elevated white count/lactic acidosis without a clear source. Cultures were drawn patient was started on antibiotic coverage. Calcium at 18 with severe volume depletion. Patient was started on crystalloids. Notably she was discharged on diuretics after recent hospitalization. subsequently nephrology was consulted in light of hypercalcemia/potassium 5.9/acute kidney injury with a creatinine of 1.4. Per nephrology patient was started on crystalloid at 200 cc/bicarbonate drip/Kayexalate. Subsequently hospitalist service was consulted for admission At the time of evaluation patient is very lethargic drowsy and unable to open her eyes. She is barely able to verbalize and provide history. Most of history was obtained from review of medical records and ER physician. No family members present. 12/28-patient doing well. Calcium down to 12 from 18. More lucid alert. Bisphosphonates given today. Fever defervesced. White count downtrending from 19 point 8K to 12.4. No obvious source of infection. Case discussed with nephrology. Potassium down to 4.2 post Kayexalate. Ostomy output stable. No evidence of bowel obstruction. Continue existing treatment/crystalloids and supportive management with diet and therapies. Possible transition to SNF in 48 hours. [id number] cocci in blood culture. Serratia on urine culture. Ant ibiotic escalated to cefepime, continue vancomycin, surveillance cultures, echocardiogram to rule out endocarditis. However clinically improving and improved electrolytes, creatinine 0.8, potassium 3.8, calcium down to 9.5 status post bisphosphonate. No overnight fever chills. Continue close monitoring. 12/30-patient complains of excessive ostomy output throughout the night. Could not sleep. However electrolytes improved with calcium 9.7. GPC bacteremia ID consulted. ID recommends discontinuing cefepime as unlikely Serratia as a cause of sepsis. Continue vancomycin. Echocardiogram EF 70%. No valvular vegetations noted on echocardiogram. Surgery consulted. Two-view abdominal imaging reveals nonspecific bowel gas pattern. Continue anticoagulation for PEs Constitutional Vitals: Vital Signs Temp Pulse Resp BP Pulse Ox 97.4 F 87 18 124/69 98 12/30/20 08:01 12/30/20 11:07 12/30/20 11:07 12/30/20 11:07 12/30/20 11:07 Period Temp Pulse Resp BP Sys/Archuleta Pulse Ox Last 24 Hr 97.4 F-99.4 F 83-110 11-29 106-187/58-104 94-100 Intake and Output 12/29/20 12/30/20 12/30/20 21:59 05:59 13:59 Intake Total 1600 1850 Output Total 1625 2900 375 Balance -25 -2900 1475 Weight 106.005 kg Alert oriented Increase ostomy output No anxiety No telemetry events Intake & Output: Intake & Output 12/29/20 12/30/20 12/30/20 21:59 05:59 13:59 Intake Total 1600 1850 Output Total 1625 2900 375 Balance -25 -2900 1475 Weight 106.005 kg Intake: IV 1000 1500 Sodium Chloride 0.9% 1,000 ml @ 1000 1000 100 mls/hr IV .Q10H [facility] Rx#: [id number] Vancomycin 1,500 mg In Sodium 500 Chloride 0.9% 500 ml @ 333.3 mls/hr IV Q24H [facility] Rx#: [id number] Oral 600 350 Output: Void Amount 525 325 Stool 1100 2575 375 Other: Meal Dinner Breakfast Percent of Meal Consumed 50% 100% Feeding Ability Independent Independent Urine Appearance Clear Clear Urine Color Dark Yellow Bright Yellow Stool Size Copious Moderate Stool Color Brown Green Green Green Stool Consistency Liquid Watery Watery Watery Loose # of times incontinent of 1 Bowels OBJ DATA Labs CBC & Chem 7: 12/30/20 04:55 12/30/20 04:55 Labs: Abnormal Lab Results 12/30/20 12/30/20 12/29/20 04:55 04:55 06:33 WBC RBC 3.78 L Hgb 11.1 L Hct 35.8 L MCHC Neut % (Auto) Lymph % (Auto) [place] % (Auto) 12.2 H Lymph # (Auto) [place] # (Auto) 1.03 H Absolute Neutrophils D-Dimer VBG Lactic Acid Sodium Potassium Chloride Carbon Dioxide 18 L Anion Gap 5.0 L BUN 27 H 37 H Creatinine Glucose 135 H 119 H Uric Acid Calcium Phosphorus 1.7 L 2.2 L GGT Alkaline Phosphatase Lactate Dehydrogenase 124 L Total Protein 5.8 L 4.7 L Albumin 2.7 L Globulin 2.0 L Triglycerides 619 H 514 H Procalcitonin TSH Urine Appearance Urine Protein Urine Bacteria Hyaline Casts Urine Mucus 12/29/20 12/28/20 12/28/20 06:33 05:25 05:25 WBC 12.4 H RBC 3.35 L Hgb 9.7 L 11.8 L Hct 31.4 L MCHC 30.9 L Neut % (Auto) Lymph % (Auto) [place] % (Auto) Lymph # (Auto) 1.48 L [place] # (Auto) 1.32 H Absolute Neutrophils 8.10 H D-Dimer VBG Lactic Acid Sodium Potassium Chloride Carbon Dioxide Anion Gap 7.0 L BUN 58 H Creatinine 1.3 H Glucose 115 H Uric Acid 9.3 H Calcium 12.6 H Phosphorus 4.6 H GGT 38 H Alkaline Phosphatase Lactate Dehydrogenase 130 L Total Protein 5.4 L Albumin 3.0 L Globulin Triglycerides 790 H Procalcitonin TSH Urine Appearance Urine Protein Urine Bacteria Hyaline Casts Urine Mucus 12/27/20 12/27/20 12/27/20 22:05 19:50 17:25 WBC RBC Hgb Hct MCHC Neut % (Auto) Lymph % (Auto) [place] % (Auto) Lymph # (Auto) [place] # (Auto) Absolute Neutrophils D-Dimer VBG Lactic Acid 3.1 H Sodium Potassium Chloride Carbon Dioxide Anion Gap BUN Creatinine Glucose Uric Acid Calcium Phosphorus GGT Alkaline Phosphatase Lactate Dehydrogenase Total Protein Albumin Globulin Triglycerides Procalcitonin 0.35 H TSH Urine Appearance Hazy A Urine Protein 30 A Urine Bacteria Few A Hyaline Casts 16 H Urine Mucus Many A 12/27/20 12/27/20 12/27/20 15:47 15:47 15:47 WBC RBC Hgb Hct MCHC Neut % (Auto) Lymph % (Auto) [place] % (Auto) Lymph # (Auto) [place] # (Auto) Absolute Neutrophils D-Dimer 0.54 H VBG Lactic Acid 3.9 H* Sodium 131 L Potassium 5.7 H Chloride 91 L Carbon Dioxide 21 L Anion Gap 19.0 H BUN 60 H Creatinine 1.4 H Glucose 276 H Uric Acid Calcium 18.0 H* Phosphorus GGT Alkaline Phosphatase 149 H Lactate Dehydrogenase Total Protein Albumin Globulin 3.9 H Triglycerides Procalcitonin TSH 0.09 L Urine Appearance Urine Protein Urine Bacteria Hyaline Casts Urine Mucus 12/27/20 15:47 WBC 19.8 H RBC 5.56 H Hgb 16.0 H Hct 50.1 H MCHC Neut % (Auto) 85.7 H Lymph % (Auto) 8.9 L [place] % (Auto) Lymph # (Auto) [place] # (Auto) 0.93 H Absolute Neutrophils 16.95 H D-Dimer VBG Lactic Acid Sodium Potassium Chloride Carbon Dioxide Anion Gap BUN Creatinine Glucose Uric Acid Calcium Phosphorus GGT Alkaline Phosphatase Lactate Dehydrogenase Total Protein Albumin Globulin Triglycerides Procalcitonin TSH Urine Appearance Urine Protein Urine Bacteria Hyaline Casts Urine Mucus Meds: Medications Acetaminophen (Acetaminophen 325 Mg Tablet) 650 mg PO Q4-6HP PRN; Protocol PRN Reason: Per Pain Protocol/Fever > 101 Last Admin: 12/29/20 09:54 Dose: 650 mg Documented by: Hydrocodone Bitart/Acetaminophen (Hydrocodone/Apap 5/325mg Tablet) 0 tab PO Q8HP PRN; Protocol PRN Reason: Per Pain Protocol Apixaban (Apixaban 5 Mg Tablet) [address] [facility] Last Admin: 12/30/20 09:23 Dose: 5 mg Documented by: Bisacodyl (Bisacodyl 10 Mg Supp.Rect) 10 mg VA Q2-3DAYS PRN PRN Reason: Constipation Cefepime HCl (Cefepime 2 Gm Vial) 2 gm IV Q12H [facility]; Protocol Last Admin: 12/30/20 09:27 Dose: 2 gm Documented by: Cyclobenzaprine HCl (Cyclobenzaprine 10 Mg Tablet) 10 mg PO BIDP PRN PRN Reason: Spasms Dextrose (Dextrose 50% 50 Ml Vial) 0 ml IV UD PRN PRN Reason: Hypoglycemia Diagnostic Test (Pha) (Accu-Chek 1 Each Strip) [address] [facility] Last Admin: 12/30/20 08:17 Dose: 1 each Documented by: Docusate Sodium (Docusate Sodium 100 Mg Capsule) [address] [facility] Last Admin: 12/30/20 09:24 Dose: Not Given Documented by: Duloxetine HCl (Duloxetine 30 Mg Capsule) [address] [facility] Last Admin: 12/30/20 09:23 Dose: 30 mg Documented by: Furosemide (Furosemide 20 Mg Tablet) [address] [facility] Last Admin: 12/30/20 09:23 Dose: 20 mg Documented by: Gabapentin (Gabapentin 300 Mg Capsule) [address] [facility] Glucose (Dextrose 31 Gm Oral.Susp) 15 gm PO PRN PRN PRN Reason: Hypoglycemia Heparin Sodium (Porcine) (Heparin Flush 10 Units/Ml 5 Ml Syringe) [address] [facility] Last Admin: 12/30/20 09:25 Dose: Not Given Documented by: Hydralazine HCl (Hydralazine 20 Mg/Ml Vial) 10 mg IV Q4-6HP PRN PRN Reason: Hypertension Potassium Chloride 40 meq/ (Dextrose) 520 mls @ 130 mls/hr IV UD PRN PRN Reason: K+ = or < 3.5 Acetaminophen (Ofirmev) 650 mg in 65 mls @ 130 mls/hr IV Q6HP PRN; Protocol PRN Reason: Per Pain Protocol/Fever > 101 Magnesium Sulfate (Magnesium Sulfate) 2 gm in 50 mls @ 50 mls/hr IV UD PRN PRN Reason: MG = or < 1.7 Last Admin: 12/29/20 09:58 Dose: 50 mls/hr Documented by: Sodium Chloride (Sodium Chloride 0.9%) 1,000 mls @ 100 mls/hr IV .Q10H [facility] Last Admin: 12/30/20 08:21 Dose: 100 mls/hr Documented by: Vancomycin HCl 1,500 mg/ (Sodium Chloride) 500 mls @ 333.3 mls/hr IV Q24H [facility] Last Infusion: 12/30/20 10:57 Dose: Infused Documented by: Insulin Glargine (Insulin Glargine, Human 1 Unit/0.01 Ml) [address] [facility] Last Admin: 12/30/20 09:24 Dose: 10 units Documented by: Insulin Human Lispro (Insulin Lispro 1 Unit/0.01 Ml Unit) 0 unit SQ [facility]; Protocol Last Admin: 12/30/20 08:17 Dose: Not Given Documented by: Iron Carb/Multivit/[place]/Folic Acid (Multivit,Ther Iron,Ca,Fa & Min 1 Tablet) [address] [facility] Last Admin: 12/30/20 09:23 Dose: 1 tab Documented by: Levothyroxine Sodium (Levothyroxine 125 Mcg Tablet) 250 mcg PO [facility] Last Admin: 12/30/20 08:06 Dose: 250 mcg Documented by: Magnesium Oxide (Magnesium Oxide 400 Mg Tablet) [address] [facility] Last Admin: 12/30/20 09:23 Dose: 400 mg Documented by: Melatonin (Melatonin 3 Mg Tablet) 3 mg PO HSP PRN PRN Reason: Insomnia Metoprolol Succinate (Metoprolol Succinate 50 Mg Tab.Xl.24h) [address] [facility] Last Admin: 12/30/20 09:23 Dose: 50 mg Documented by: Metoprolol Tartrate (Metoprolol Tartrate 5 Mg/5 Ml Vial) 5 mg IV Q5M PRN PRN Reason: Heart Rate > 140 bpm Ondansetron HCl (Ondansetron 4 Mg/2 Ml Vial) 4 mg IV Q4-6HP PRN; Protocol PRN Reason: Nausea And Vomiting Ondansetron HCl (Ondansetron 4 Mg Odt Tablet) 4 mg SL Q4HP PRN PRN Reason: Nausea Polyethylene Glycol (Polyethylene Glycol 3350 17 Gm Packet) 17 gm PO DAILYP PRN PRN Reason: Constipation Potassium Chloride (Potassium Chloride 20 Meq Packet) 40 meq PO DAILYP PRN PRN Reason: K+ < 3.5 Prednisone (Prednisone 20 Mg Tablet) 20 mg PO [facility] Last Admin: 12/30/20 08:06 Dose: 20 mg Documented by: Promethazine HCl (Promethazine 25 Mg Tablet) 25 mg PO Q6HP PRN PRN Reason: Nausea Last Admin: 12/29/20 21:00 Dose: 25 mg Documented by: Pyridostigmine [place] (Pyridostigmine [place] 10 Mg/2 Ml Ml) [address] [facility] Last Admin: 12/30/20 05:31 Dose: 10 mg Documented by: Senna/Docusate Sodium (Sennosides/Docusate Sodium 1 Tab Tablet) [address] [facility] Last Admin: 12/29/20 20:01 Dose: Not Given Documented by: Sodium Chloride (0.9 % Sodium Chloride 10 Ml Syringe) [address] [facility] Last Admin: 12/30/20 05:31 Dose: Not Given Documented by: Sodium Chloride (0.9 % Sodium Chloride 10 Ml Syringe) [address] [facility] Last Admin: 12/30/20 09:25 Dose: Not Given Documented by: Thiamine HCl (Thiamine 100 Mg Tablet) [address] [facility] Last Admin: 12/30/20 09:23 Dose: 100 mg Documented by: Vancomycin HCl (Vancomycin Per Pharmacy) [address] [facility]; Protocol A/P Narrative A/P Narrative: * Severe sepsis with evidence of endorgan dysfunction including THANIA/altered mental status/elevated lactate 3.9, (source GPC bacteremia/Serratia UTI). ID recommends discontinuing cefepime * GPC bacteremia-surveillance cultures negative so far/echocardiogram no evidence of valvular vegetation. ID consulted and recommends continuation of vancomycin. * Complicated Serratia UTI-resolved, DC cefepime * Increased ostomy output. 2 view abdominal imaging nonspecific bowel gas pattern. Surgery aware. * Hyperkalemia status post Kayexalate , down to 3.7 * Hypercalcemia 18 -now down to 9.2 post bisphosphonate/crystalloids * Acute kidney injury -resolved. Creatinine at baseline * Multifocal PE, continuing anticoagulation on apixaban * DM type II continue basal panel insulin/CC diet * Anxiety disorder continue duloxetine * Neuropathy continue gabapentin * History of hypothyroid continue thyroxine * History of recurrent SBO follows up with Dr. Currie surgery. 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
[2020-12-30] MEDS ORDERED: METOPROLOL TARTRATE 5 MG/5 ML VIAL IV PRN (13:49)
[2020-12-30] MEDS ORDERED: POTASSIUM CHLORIDE 40 MEQ in DEXTROSE 5% IN WATER 500 ML IV PRN (13:49)
[2020-12-30] MEDS ORDERED: ACETAMINOPHEN 650 MG/65 ML BAG IV PRN (13:49)
[2020-12-30] MEDS ORDERED: CYCLOBENZAPRINE 10 MG TABLET PO PRN (13:49)
[2020-12-30] MEDS ORDERED: VANCOMYCIN PER PHARMACY IV SCH (13:49)
[2020-12-30] MEDS ORDERED: ACETAMINOPHEN 325 MG TABLET PO PRN (13:49)
[2020-12-30] MEDS ORDERED: POLYETHYLENE GLYCOL 3350 17 GM PACKET PO PRN (13:49)
[2020-12-30] MEDS ORDERED: DEXTROSE 31 GM ORAL.SUSP PO PRN (13:49)
[2020-12-30] MEDS ORDERED: BISACODYL 10 MG SUPP.RECT PR PRN (13:49)
[2020-12-30] MEDS ORDERED: POTASSIUM CHLORIDE 20 MEQ PACKET PO PRN (13:49)
[2020-12-30] MEDS ORDERED: DEXTROSE 50% 50 ML VIAL IV PRN (13:49)
[2020-12-30] MEDS ORDERED: GABAPENTIN 300 MG CAPSULE PO SCH (15:00)
--- NOTE | 2020-12-30 16:02 | General Surgery Progress Note ---
SUBJECTIVE Subjective Patient information: Note initiated : 12/30/20 at 3:29 pm Service Date, if different from initiated Date: [] Patient: Dayanna Guo 60 y/o F admitted on 12/27/20 for weakness, cool clammy. Chief Complaint: [] Interval history: Patient continues to do well. Her abdomen is decompressed and x-rays this morning significantly improved. She has high volume output through her stoma. She states that the pain is significantly less. White blood count 8.4, hemoglobin 11.1, hematocrit 35.8, potassium 3.7, BUN 27, creatinine 0.8, phosphorus 1.7. Constitutional Vitals: Vital Signs Temp Pulse Resp BP Pulse Ox 97 F 102 H 24 H 118/80 98 12/30/20 12:00 12/30/20 12:00 12/30/20 12:00 12/30/20 12:00 12/30/20 12:00 Period Temp Pulse Resp BP Sys/Archuleta Pulse Ox Last 24 Hr 97 F-99.4 F 84-110 11-29 114-187/69-104 95-100 Intake and Output 12/30/20 12/30/20 12/30/20 05:59 13:59 21:59 Intake Total 1850 Output Total 2900 575 500 Balance -2900 1275 -500 Intake & Output: Intake & Output 12/30/20 12/30/20 12/30/20 05:59 13:59 21:59 Intake Total 1850 Output Total 2900 575 500 Balance -2900 1275 -500 Intake: IV 1500 Sodium Chloride 0.9% 1,000 ml @ 1000 100 mls/hr IV .Q10H [facility] Rx#: [id number] Vancomycin 1,500 mg In Sodium 500 Chloride 0.9% 500 ml @ 333.3 mls/hr IV Q24H [facility] Rx#: [id number] Oral 350 Output: Void Amount 325 500 Stool 2575 575 Other: Meal Breakfast Percent of Meal Consumed 100% Feeding Ability Independent Urine Appearance Clear Clear Urine Color Bright Yellow Bright Yellow Stool Size Copious Moderate Stool Color Green Brown Stool Consistency Watery Watery Loose # of times incontinent of 1 Bowels Head Head exam: Present atraumatic and normal inspection Eye Eye exam: Present EOMI Pupils: Present normal accommodation and PERRL ENT ENT exam: Present mucous membranes moist Neck Neck exam: Present full ROM; Absent lymphadenopathy and tenderness Respiratory Respiratory exam: Present normal respiratory exam and CTAB GI/Abdominal GI/Abdominal exam: Present soft, distended (Distention is significantly worsened since yesterday) and hyperactive bowel sounds; Absent organomegaly Additional comments: Stoma is patent and functioning normally Extremities Exam Extremities exam: Present pedal edema (Trace); Absent tenderness Neurological Exam Neurological exam: Present CN II-XII intact and oriented X3 Skin Skin exam: Present dry and normal color; Absent mottled, pallor and petechiae A/P Assessment and plan (1) Chronic intestinal pseudo-obstruction: Status: Chronic Comment: If no mechanical obstruction, patient says cholinesterase inhibitors usually works Linzess is another possibility Octreotide has helped in children (2) Chronic, continuous use of opioids: Status: Chronic Comment: Need to minimize or stop as they are confusing the bowel issue (3) LA (obstructive sleep apnea): Status: Chronic (4) Primary chronic pseudo-obstruction of small intestine: Status: Acute Narrative A/P Narrative: reduce regonol to bid add cholestyramine to bind bile if volume output does not respond Time Spent With Patient Time: Total time spent is greater than 50% in coordination of care (as documented) at patient's floor/unit and/or counseling patient:
[2020-12-30] MEDS: ONDANSETRON 4 MG ODT TABLET SL PRN ×2 (17:12→22:39)
[2020-12-30] MEDS ORDERED: NEUTRA PHOS 1 PACKET PO ONE (17:29)
[2020-12-30] MEDS ORDERED: NEUTRA PHOS 1 PACKET ONE ×2 (17:47→17:52)
[2020-12-30] MEDS ORDERED: PYRIDOSTIGMINE BROMIDE 10 MG/2 ML AMPUL IM SCH (18:00)
[2020-12-30] MEDS ORDERED: SENNOSIDES/DOCUSATE SODIUM 1 TAB TABLET PO SCH (21:00)
[2020-12-30] MEDS: HYDROcodone/APAP 5/325MG TABLET PO PRN (22:39)
[2020-12-31] MEDS: 0.9 % SODIUM CHLORIDE 10 ML SYRINGE IV SCH ×5 (04:23→21:24)
[2020-12-31 06:34] LABS: Basophils # (Auto) 0.08 K/mcL (0.00-0.20); Basophils % (Auto) 0.7 % (0.0-2.0); Eosinophils # (Auto) 0.23 K/mcL (0.00-0.70); Eosinophils % (Auto) 2.1 % (0.0-7.0); Hematocrit 41.8 % (36.0-48.0); Hemoglobin 12.5 g/dL (12.0-15.0); Lymphocytes # (Auto) 3.11 K/mcL (1.50-4.80); Lymphocytes % (Auto) 27.9 % (15.0-49.0); Mean Cell Volume 98.1 fL (80.0-100.0); Mean Corpuscular HGB Conc 29.9 g/dL (31.0-36.0); Mean Platelet Volume 9.4 fL (7.4-10.4); Monocytes # (Auto) 1.25 K/mcL (0.10-0.90); Monocytes % (Auto) 11.2 % (1.0-12.0); Neutrophils % (Auto) 58.1 % (38.0-78.0); Platelet Count 260 K/mcL (140-440); RBC 4.26 M/mcL (4.00-5.20); Red Cell Distribution Width 14.1 % (11.5-14.5); WBC 11.2 K/mcL (4.5-11.0)
[2020-12-31 06:57] LABS: ALT/SGPT 18 U/L (<40); AST/SGOT 15 U/L (<32); Albumin 3.5 gm/dL (3.2-5.2); Albumin/Globulin Ratio 1.3 (1.0-2.3); Alkaline Phosphatase 91 U/L (39-117); Bilirubin,Direct < 0.2 mg/dL (0-0.3); Bilirubin,Total < 0.2 mg/dL (0.1-1.0); Blood Urea Nitrogen 30 mg/dL (6-20); Calcium 8.5 mg/dL (8.6-10.4); Carbon Dioxide 14 mmol/L (22-30); Chloride 106 mmol/L (96-108); Globulin 2.8 gm/dL (2.2-3.7); Glomerular Filtration Rate 81; Glucose 143 mg/dL (70-105); Lactate Dehydrogenase 221 U/L (135-225); Phosphorous 2.7 mg/dL (2.5-4.5); Triglycerides 699 mg/dL (<150); Uric Acid 4.9 mg/dL (2.5-8.0)
[2020-12-31] MEDS: LEVOTHYROXINE 125 MCG TABLET PO SCH (07:32)
[2020-12-31] MEDS: ONDANSETRON 4 MG/2 ML VIAL IV PRN ×3 (07:34→23:52)
[2020-12-31] MEDS: 0.9 % SODIUM CHLORIDE 1,000 ML IV SCH ×3 (07:36→19:58)
[2020-12-31] MEDS: PYRIDOSTIGMINE BROMIDE 10 MG/2 ML AMPUL IM SCH ×2 (07:40→16:23)
[2020-12-31] MEDS: INSULIN LISPRO 1 UNIT/0.01 ML UNIT SQ SCH ×4 (07:47→21:41)
[2020-12-31] MEDS: predniSONE 20 MG TABLET PO SCH (07:53)
[2020-12-31] MEDS: HYDROcodone/APAP 5/325MG TABLET PO PRN ×2 (07:54→21:36)
[2020-12-31] MEDS: VANCOMYCIN 1,500 MG in 0.9 % SODIUM CHLORIDE 500 ML IV SCH (10:20)
[2020-12-31] MEDS: GABAPENTIN 300 MG CAPSULE PO SCH ×3 (10:22→21:36)
[2020-12-31] MEDS: MAGNESIUM OXIDE 400 MG TABLET PO SCH ×2 (10:22→21:37)
[2020-12-31] MEDS: THIAMINE 100 MG TABLET PO SCH (10:22)
[2020-12-31] MEDS: METOPROLOL SUCCINATE 50 MG TAB.XL.24H PO SCH (10:22)
[2020-12-31] MEDS: FUROSEMIDE 20 MG TABLET PO SCH (10:23)
[2020-12-31] MEDS: MULTIVIT,THER IRON,CA,FA & MIN 1 TABLET PO SCH (10:23)
[2020-12-31] MEDS: APIXABAN 5 MG TABLET PO SCH ×2 (10:23→21:36)
[2020-12-31] MEDS: DULoxetine 30 MG CAPSULE PO SCH ×2 (10:23→21:36)
[2020-12-31] MEDS: DOCUSATE SODIUM 100 MG CAPSULE PO SCH ×2 (10:23→21:54)
[2020-12-31] MEDS: INSULIN GLARGINE, HUMAN 1 UNIT/0.01 ML SQ SCH ×2 (10:37→21:47)
--- NOTE | 2020-12-31 12:33 | General Surgery Progress Note ---
SUBJECTIVE Subjective Patient information: Note initiated : 12/31/20 at 12:27 pm Service Date, if different from initiated Date: [] Patient: Dayanna Guo 60 y/o F admitted on 12/27/20 for weakness, cool clammy. Chief Complaint: [] Interval history: Patient states that she feels stronger. She still has high volume output through her stoma and her BUN is elevated slightly. She has good appetite and her p.o. intake is good. BUN is 30, creatinine 0.8, potassium 4.5, calcium 8.5, phosphorus 2.7, white blood count 11.2, hemoglobin 12.5, hematocrit 41.8. Constitutional Vitals: Vital Signs Temp Pulse Resp BP Pulse Ox 97 F 96 H 16 117/74 96 12/31/20 11:35 12/31/20 11:35 12/31/20 11:35 12/31/20 11:35 12/31/20 11:35 Period Temp Pulse Resp BP Sys/Archuleta Pulse Ox Last 24 Hr 96.9 F-98.4 F 88-105 - 117-150/74-96 92-98 Intake and Output 12/30/20 12/31/20 12/31/20 21:59 05:59 13:59 Intake Total 1200 2600 Output Total 2500 2400 1000 Balance -2500 -1200 1600 Weight 229 lb 4.8 oz Intake & Output: Intake & Output 12/30/20 12/31/20 12/31/20 21:59 05:59 13:59 Intake Total 1200 2600 Output Total 2500 2400 1000 Balance -2500 -1200 1600 Weight 229 lb 4.8 oz Intake: IV 1000 1000 Sodium Chloride 0.9% 1,000 ml @ 1000 1000 100 mls/hr IV .Q10H [facility] Rx#: [id number] Oral 200 1600 Output: Void Amount 1150 150 700 Stool 1350 2250 300 Other: Meal Dinner Breakfast Percent of Meal Consumed 0% 100% Feeding Ability Independent Urine Appearance Cloudy Cloudy Clear Urine Color Bright Yellow Bright Yellow Bright Yellow Urine Odor Normal Stool Size Moderate Large Stool Color Brown Brown Green Stool Consistency Liquid Liquid Liquid Watery Head Head exam: Present atraumatic, normal inspection and normocephalic Eye Eye exam: Present EOMI and normal appearance Pupils: Present PERRL ENT ENT exam: Present mucous membranes moist, normal exam and normal oropharynx Neck Neck exam: Present full ROM; Absent lymphadenopathy and tenderness Respiratory Respiratory exam: Present normal respiratory exam and CTAB; Absent rales, rhonchi and wheezes Cardiovascular Cardiovascular exam: Present RRR, +S1, +S2 and tachycardia (Tachycardia is significantly improved); Absent JVD GI/Abdominal GI/Abdominal exam: Present normal bowel sounds, soft and distended; Absent organomegaly Additional comments: Stoma is patent and functioning normally Extremities Exam Extremities exam: Present full ROM and neurovascular intact; Absent normal inspection and pedal edema Back Exam Back exam: Present full ROM and normal inspection Neurological Exam Neurological exam: Present alert, CN II-XII intact, normal gait, oriented X3 and reflexes normal Psychiatric Psychiatric exam: Present agitated, depressed, normal affect and normal mood Skin Skin exam: Present normal color A/P Assessment and plan (1) Hypercalcemia: Status: Acute (2) Generalized weakness: Status: Acute (3) Chronic intestinal pseudo-obstruction: Status: Chronic (4) Diabetes mellitus type 2, uncontrolled: Status: Chronic Qualifiers: Coma presence: without coma Narrative A/P Narrative: Increase IV 250 cc/h Cholestyramine 4 g 4 times daily as needed for diarrhea Time Spent With Patient Time: Total time spent is greater than 50% in coordination of care (as documented) at patient's floor/unit and/or counseling patient:
--- NOTE | 2020-12-31 15:33 | Internal Med Progress Note ---
SUBJECTIVE Subjective Patient information: Note initiated : 12/31/20 at 3:28 pm Service Date, if different from initiated Date: [] Patient: Dayanna Guo a 60 y/o F admitted on 12/27/20 for weakness, cool clammy. Chief Complaint: [] Interval history: Ms. Guo is a 60 year old F with a history of recurrent bowel obstruction and was recently discharged December 20 to [facility] facility. Patient was doing well however over the last 3 days nursing staff has noticed increasing weakness/cough/fatigue malaise and inability to function. She in all probability was exposed to sick contacts. She denies headache or photophobia endorses to weakness myalgia and joint aches. She denies increased ostomy output or dysuria, abdominal pain or distention. EMS was called after facility staff noticed her increasing lethargic and confused. Initial work-up was consistent with severe sepsis elevated white count/lactic acidosis without a clear source. Cultures were drawn patient was started on antibiotic coverage. Calcium at 18 with severe volume depletion. Patient was started on crystalloids. Notably she was discharged on diuretics after recent hospitalization. subsequently nephrology was consulted in light of hypercalcemia/potassium 5.9/acute kidney injury with a creatinine of 1.4. Per nephrology patient was started on crystalloid at 200 cc/bicarbonate drip/Kayexalate. Subsequently hospitalist service was consulted for admission At the time of evaluation patient is very lethargic drowsy and unable to open her eyes. She is barely able to verbalize and provide history. Most of history was obtained from review of medical records and ER physician. No family members present. 12/28-patient doing well. Calcium down to 12 from 18. More lucid alert. Bisphosphonates given today. Fever defervesced. White count downtrending from 19 point 8K to 12.4. No obvious source of infection. Case discussed with nephrology. Potassium down to 4.2 post Kayexalate. Ostomy output stable. No evidence of bowel obstruction. Continue existing treatment/crystalloids and supportive management with diet and therapies. Possible transition to SNF in 48 hours. [id number] cocci in blood culture. Serratia on urine culture. Ant ibiotic escalated to cefepime, continue vancomycin, surveillance cultures, echocardiogram to rule out endocarditis. However clinically improving and improved electrolytes, creatinine 0.8, potassium 3.8, calcium down to 9.5 status post bisphosphonate. No overnight fever chills. Continue close monitoring. 12/30-patient complains of excessive ostomy output throughout the night. Could not sleep. However electrolytes improved with calcium 9.7. GPC bacteremia ID consulted. ID recommends discontinuing cefepime as unlikely Serratia as a cause of sepsis. Continue vancomycin. Echocardiogram EF 70%. No valvular vegetations noted on echocardiogram. Surgery consulted. Two-view abdominal imaging reveals nonspecific bowel gas pattern. Continue anticoagulation for PEs 12/31-patient doing better. Improved ostomy output on cholestyramine/lower dose of pyridostigmine. ID recommends continuation of vancomycin for 2 weeks as a port salvage treatment for bacteremia. Blood cultures coag negative staph. White count 11.2, phosphorus improved to 2.7 from 1.7. Tolerating diet. Ongoing therapies. Constitutional Vitals: Vital Signs Temp Pulse Resp BP Pulse Ox 97 F 96 H 16 117/74 96 12/31/20 11:35 12/31/20 11:35 12/31/20 11:35 12/31/20 11:35 12/31/20 11:35 Period Temp Pulse Resp BP Sys/Archuleta Pulse Ox Last 24 Hr 96.9 F-98.4 F 88-105 -20 117-150/74-96 92-98 Intake and Output 12/31/20 12/31/20 12/31/20 05:59 13:59 21:59 Intake Total 1200 2600 Output Total 2400 1350 Balance -1200 1250 Alert oriented Nonlabored breathing Nondistended abdomen No anxiety Intake & Output: Intake & Output 12/31/20 12/31/20 12/31/20 05:59 13:59 21:59 Intake Total 1200 2600 Output Total 2400 1350 Balance -1200 1250 Intake: IV 1000 1000 Sodium Chloride 0.9% 1,000 ml @ 1000 1000 100 mls/hr IV .Q10H MALENA Rx#: [id number] Oral 200 1600 Output: Void Amount 150 1050 Stool 2250 300 Other: Meal Breakfast Percent of Meal Consumed 100% Feeding Ability Independent Urine Appearance Cloudy Clear Urine Color Bright Yellow Bright Yellow Stool Size Large Stool Color Brown Green Stool Consistency Liquid Liquid Watery OBJ DATA Labs CBC & Chem 7: 12/31/20 06:12/31/20 06:01 Labs: Abnormal Lab Results 12/31/20 12/31/20 12/30/20 06:01 06:01 04:55 WBC 11.2 H RBC Hgb Hct MCHC 29.9 L Mora % (Auto) Lymph # (Auto) Mora # (Auto) 1.25 H Sodium 129 L Carbon Dioxide 14 L 18 L Anion Gap BUN 30 H 27 H Glucose 143 H 135 H Calcium 8.5 L Phosphorus 1.7 L GGT 37 H Lactate Dehydrogenase Total Protein 5.8 L Albumin Globulin Triglycerides 699 H 619 H 12/30/20 12/29/20 12/29/20 04:55 06:33 06:33 WBC RBC 3.78 L 3.35 L Hgb 11.1 L 9.7 L Hct 35.8 L 31.4 L MCHC 30.9 L [place] % (Auto) 12.2 H Lymph # (Auto) 1.48 L Mora # (Auto) 1.03 H Sodium Carbon Dioxide Anion Gap 5.0 L BUN 37 H Glucose 119 H Calcium Phosphorus 2.2 L GGT Lactate Dehydrogenase 124 L Total Protein 4.7 L Albumin 2.7 L Globulin 2.0 L Triglycerides 514 H Meds: Medications Acetaminophen (Acetaminophen 325 Mg Tablet) 650 mg PO Q4-6HP PRN; Protocol PRN Reason: Per Pain Protocol/Fever > 101 Hydrocodone Bitart/Acetaminophen (Hydrocodone/Apap 5/325mg Tablet) 0 tab PO Q8HP PRN; Protocol PRN Reason: Per Pain Protocol Last Admin: 12/31/20 07:54 Dose: 1 tab Documented by: Apixaban (Apixaban 5 Mg Tablet) 5 mg PO BID [facility] Last Admin: 12/31/20 10:23 Dose: 5 mg Documented by: Bisacodyl (Bisacodyl 10 Mg Supp.Rect) 10 mg AK Q2-3DAYS PRN PRN Reason: Constipation Cyclobenzaprine HCl (Cyclobenzaprine 10 Mg Tablet) 10 mg PO BIDP PRN PRN Reason: Spasms Last Admin: 12/30/20 17:12 Dose: 10 mg Documented by: Dextrose (Dextrose 50% 50 Ml Vial) 0 ml IV UD PRN PRN Reason: Hypoglycemia Diagnostic Test (Pha) (Accu-Chek 1 Each Strip) 1 each FS ACHS [facility] Last Admin: 12/31/20 11:58 Dose: 1 each Documented by: Docusate Sodium (Docusate Sodium 100 Mg Capsule) 100 mg PO BID [facility] Last Admin: 12/31/20 10:23 Dose: 100 mg Documented by: Duloxetine HCl (Duloxetine 30 Mg Capsule) 30 mg PO BID [facility] Last Admin: 12/31/20 10:23 Dose: 30 mg Documented by: Furosemide (Furosemide 20 Mg Tablet) 20 mg PO QDAY [facility] Last Admin: 12/31/20 10:23 Dose: 20 mg Documented by: Gabapentin (Gabapentin 300 Mg Capsule) 300 mg PO TID [facility] Last Admin: 12/31/20 10:22 Dose: 300 mg Documented by: Glucose (Dextrose 31 Gm Oral.Susp) 15 gm PO PRN PRN PRN Reason: Hypoglycemia Heparin Sodium (Porcine) (Heparin Flush 10 Units/Ml 5 Ml Syringe) 5 ml IV Q12 [facility] Last Admin: 12/31/20 10:32 Dose: Not Given Documented by: Hydralazine HCl (Hydralazine 20 Mg/Ml Vial) 10 mg IV Q4-6HP PRN PRN Reason: Hypertension Magnesium Sulfate (Magnesium Sulfate) 2 gm in 50 mls @ 50 mls/hr IV UD PRN PRN Reason: MG = or < 1.7 Potassium Chloride 40 meq/ (Dextrose) 520 mls @ 130 mls/hr IV UD PRN PRN Reason: K+ = or < 3.5 Sodium Chloride (Sodium Chloride 0.9%) 1,000 mls @ 100 mls/hr IV .Q10H [facility] Last Admin: 12/31/20 10:33 Dose: Not Given Documented by: Acetaminophen (Ofirmev) 650 mg in 65 mls @ 130 mls/hr IV Q6HP PRN; Protocol PRN Reason: Per Pain Protocol/Fever > 101 Vancomycin HCl 1,500 mg/ (Sodium Chloride) 500 mls @ 333.3 mls/hr IV Q24H [facility] Last Admin: 12/31/20 10:20 Dose: 333.3 mls/hr Documented by: Insulin Glargine (Insulin Glargine, Human 1 Unit/0.01 Ml) 10 unit SQ BID [facility] Last Admin: 12/31/20 10:37 Dose: 10 units Documented by: Insulin Human Lispro (Insulin Lispro 1 Unit/0.01 Ml Unit) 0 unit SQ ACHS [facility]; Protocol Last Admin: 12/31/20 12:05 Dose: 3 units Documented by: Iron Carb/Multivit/[place]/Folic Acid (Multivit,Ther Iron,Ca,Fa & Min 1 Tablet) 1 tab PO DAILY [facility] Last Admin: 12/31/20 10:23 Dose: 1 tab Documented by: Levothyroxine Sodium ([facility]othyroxine 125 Mcg Tablet) [facility] Last Admin: 12/31/20 07:32 Dose: 250 mcg Documented by: Magnesium Oxide (Magnesium Oxide 400 Mg Tablet) 400 mg PO BID [facility] Last Admin: 12/31/20 10:22 Dose: 400 mg Documented by: Melatonin (Melatonin 3 Mg Tablet) 3 mg PO HSP PRN PRN Reason: Insomnia Metoprolol Succinate (Metoprolol Succinate 50 Mg Tab.Xl.24h) 50 mg PO DAILY [facility] Last Admin: 12/31/20 10:22 Dose: 50 mg Documented by: Metoprolol Tartrate (Metoprolol Tartrate 5 Mg/5 Ml Vial) 5 mg IV Q5M PRN PRN Reason: Heart Rate > 140 bpm Ondansetron HCl (Ondansetron 4 Mg Odt Tablet) 4 mg SL Q4HP PRN PRN Reason: Nausea Last Admin: 12/30/20 22:39 Dose: 4 mg Documented by: Ondansetron HCl (Ondansetron 4 Mg/2 Ml Vial) 4 mg IV Q4-6HP PRN; Protocol PRN Reason: Nausea And Vomiting Last Admin: 12/31/20 07:34 Dose: 4 mg Documented by: Polyethylene Glycol (Polyethylene Glycol 3350 17 Gm Packet) 17 gm PO DAILYP PRN PRN Reason: Constipation Potassium Chloride (Potassium Chloride 20 Meq Packet) 40 meq PO DAILYP PRN PRN Reason: K+ < 3.5 Prednisone (Prednisone 20 Mg Tablet) 20 mg PO [facility] Last Admin: 12/31/20 07:53 Dose: 20 mg Documented by: Promethazine HCl (Promethazine 25 Mg Tablet) 25 mg PO Q6HP PRN PRN Reason: Nausea Pyridostigmine [place] (Pyridostigmine [place] 10 Mg/2 Ml Ampul) 5 mg IM 1HRACBID [facility] Last Admin: 12/31/20 07:40 Dose: 5 mg Documented by: Sodium Chloride (0.9 % Sodium Chloride 10 Ml Syringe) 10 ml IV Q12 [facility] Last Admin: 12/31/20 10:33 Dose: Not Given Documented by: Sodium Chloride (0.9 % Sodium Chloride 10 Ml Syringe) 10 ml IV Q8 [facility] Last Admin: 12/31/20 13:56 Dose: Not Given Documented by: Thiamine HCl (Thiamine 100 Mg Tablet) 100 mg PO DAILY [facility] Last Admin: 12/31/20 10:22 Dose: 100 mg Documented by: Vancomycin HCl (Vancomycin Per Pharmacy) 1 order IV UD [facility]; Protocol A/P Narrative A/P Narrative: * Severe sepsis with evidence of endorgan dysfunction . Clinically resolved. Continue vancomycin for additional 14 days per ID. * Coag negative staph bacteremia-surveillance cultures negative so far/echocardiogram no evidence of valvular vegetation. ID recommends 2 weeks vancomycin as a port salvage treatment. * Complicated Serratia UTI-resolved, cefepime discontinued * Increased ostomy output. Negative doll imaging. Improved post addition of cholestyramine/lower pyridostigmine per surgery * Hyperkalemia resolved with Kayexalate * Hypercalcemia 18 on presentation-now down to 9.2 post bisphosphonate/crystalloids * Acute kidney injury -resolved. Creatinine at baseline * Multifocal PE, continuing anticoagulation on apixaban * DM type II continue basal prandial insulin/CC diet * Anxiety disorder continue duloxetine * Neuropathy continue gabapentin * History of hypothyroid continue thyroxine * History of recurrent SBO follows up with Dr. Currie surgery. 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
[2020-12-31] MEDS: PROMETHAZINE 25 MG TABLET PO PRN (19:18)
[2020-12-31] MEDS: CHOLESTYRAMINE/ASPARTAME 4 GM POWD.PACK PO SCH ×3 (19:57→23:45)
[2021-01-01] MEDS: PROMETHAZINE 25 MG TABLET PO PRN (02:53)
[2021-01-01] MEDS: ONDANSETRON 4 MG/2 ML VIAL IV PRN ×2 (04:27→08:35)
[2021-01-01] MEDS: 0.9 % SODIUM CHLORIDE 10 ML SYRINGE IV SCH ×5 (05:27→21:10)
[2021-01-01] MEDS: CHOLESTYRAMINE/ASPARTAME 4 GM POWD.PACK PO SCH (05:58)
[2021-01-01] MEDS: 0.9 % SODIUM CHLORIDE 1,000 ML IV SCH (06:04)
[2021-01-01 07:12] LABS: Basophils # (Auto) 0.11 K/mcL (0.00-0.20); Basophils % (Auto) 0.8 % (0.0-2.0); Eosinophils # (Auto) 0.31 K/mcL (0.00-0.70); Eosinophils % (Auto) 2.2 % (0.0-7.0); Hematocrit 46.5 % (36.0-48.0); Lymphocytes # (Auto) 3.52 K/mcL (1.50-4.80); Mean Cell Volume 96.1 fL (80.0-100.0); Mean Corpuscular HGB Conc 30.1 g/dL (31.0-36.0); Mean Platelet Volume 9.5 fL (7.4-10.4); Monocytes # (Auto) 1.23 K/mcL (0.10-0.90); Monocytes % (Auto) 8.7 % (1.0-12.0); Neutrophils % (Auto) 63.3 % (38.0-78.0); Platelet Count 289 K/mcL (140-440); RBC 4.84 M/mcL (4.00-5.20); WBC 14.1 K/mcL (4.5-11.0)
[2021-01-01 07:51] LABS: ALT/SGPT 19 U/L (<40); AST/SGOT 14 U/L (<32); Albumin 3.6 gm/dL (3.2-5.2); Albumin/Globulin Ratio 1.1 (1.0-2.3); Alkaline Phosphatase 101 U/L (39-117); Bilirubin,Direct < 0.2 mg/dL (0-0.3); Bilirubin,Total < 0.2 mg/dL (0.1-1.0); Blood Urea Nitrogen 28 mg/dL (6-20); Calcium 8.6 mg/dL (8.6-10.4); Carbon Dioxide 10 mmol/L (22-30); Chloride 103 mmol/L (96-108); Globulin 3.4 gm/dL (2.2-3.7); Glomerular Filtration Rate 70; Glucose 152 mg/dL (70-105); Lactate Dehydrogenase 280 U/L (135-225); Phosphorous 2.6 mg/dL (2.5-4.5); Triglycerides 793 mg/dL (<150); Uric Acid 4.8 mg/dL (2.5-8.0)
[2021-01-01] MEDS: LEVOTHYROXINE 125 MCG TABLET PO SCH (08:25)
[2021-01-01] MEDS: predniSONE 20 MG TABLET PO SCH (08:26)
[2021-01-01] MEDS: PYRIDOSTIGMINE BROMIDE 10 MG/2 ML AMPUL IM SCH ×3 (08:27→19:40)
[2021-01-01] MEDS: INSULIN LISPRO 1 UNIT/0.01 ML UNIT SQ SCH ×4 (08:59→21:24)
--- NOTE | 2021-01-01 10:39 | Internal Med Progress Note ---
SUBJECTIVE Subjective Patient information: Note initiated : 01/01/21 at 10:31 am Service Date, if different from initiated Date: [] Patient: Dayanna Guo a 60 y/o F admitted on 12/27/20 for weakness, cool clammy. Chief Complaint: [] Interval history: Ms. Guo is a 60 year old F with a history of recurrent bowel obstruction and was recently discharged December 20 to group home facility. Patient was doing well however over the last 3 days nursing staff has noticed increasing weakness/cough/fatigue malaise and inability to function. Sh josué in all probability was exposed to sick contacts. She denies headache or photophobia endorses to weakness myalgia and joint aches. She denies increased ostomy output or dysuria, abdominal pain or distention. EMS was called after facility staff noticed her increasing lethargic and confused. Initial work-up was consistent with severe sepsis elevated white count/lactic acidosis without a clear source. Cultures were drawn patient was started on antibiotic coverage. Calcium at 18 with severe volume depletion. Patient was started on crystalloids. Notably she was discharged on diuretics after recent hospitalization. subsequently nephrology was consulted in light of hypercalcemia/potassium 5.9/acute kidney injury with a creatinine of 1.4. Per nephrology patient was started on crystalloid at 200 cc/bicarbonate drip/Kayexalate. Subsequently hospitalist service was consulted for admission At the time of evaluation patient is very lethargic drowsy and unable to open her eyes. She is barely able to verbalize and provide history. Most of history was obtained from review of medical records and ER physician. No family members present. 12/28-patient doing well. Calcium down to 12 from 18. More lucid alert. Bisphosphonates given today. Fever defervesced. White count downtrending from 19 point 8K to 12.4. No obvious source of infection. Case discussed with nephrology. Potassium down to 4.2 post Kayexalate. Ostomy output stable. No evidence of bowel obstruction. Continue existing treatment/crystalloids and supportive management with diet and therapies. Possible transition to SNF in 48 hours. [id number] cocci in blood culture. Serratia on urine culture. An tibiotic escalated to cefepime, continue vancomycin, surveillance cultures, echocardiogram to rule out endocarditis. However clinically improving and improved electrolytes, creatinine 0.8, potassium 3.8, calcium down to 9.5 status post bisphosphonate. No overnight fever chills. Continue close monitoring. 12/30-patient complains of excessive ostomy output throughout the night. Could not sleep. However electrolytes improved with calcium 9.7. GPC bacteremia ID consulted. ID recommends discontinuing cefepime as unlikely Serratia as a cause of sepsis. Continue vancomycin. Echocardiogram EF 70%. No valvular vegetations noted on echocardiogram. Surgery consulted. Two-view abdominal imaging reveals nonspecific bowel gas pattern. Continue anticoagulation for PEs 12/31-patient doing better. Improved ostomy output on cholestyramine/lower dose of pyridostigmine. ID recommends continuation of vancomycin for 2 weeks as a port salvage treatment for bacteremia. Blood cultures coag negative staph. White count 11.2, phosphorus improved to 2.7 from 1.7. Tolerating diet. Ongoing therapies. 01/01-patient not feeling well this morning, persistent nausea/abdominal pain and lethargic. On crystalloids. Bicarb down to 10. Nephrology consulted. Also surgery on board for possible bowel obstruction. Continuing vancomycin for enterococcal bacteremia per ID. Worsening white count at 14.1, Constitutional Vitals: Vital Signs Temp Pulse Resp BP Pulse Ox 97.8 F 117 H 16 135/84 93 01/01/21 07:53 01/01/21 07:53 01/01/21 07:53 01/01/21 07:53 01/01/21 07:53 Period Temp Pulse Resp BP Sys/[place]ule[place] Pulse Ox Last 24 Hr 97 F-97.8 F 96-117 12-18 117-151/74-93 93-97 Intake and Output 12/31/20 01/01/21 01/01/21 21:59 05:59 13:59 Intake Total 1640 1850 800 Output Total 1077 213 3235 Balance 615 1350 -600 Weight 101.378 kg Lethargic, anxious Progress abdominal pain Nonlabored breathing Intake & Output: Intake & Output 12/31/20 01/01/21 01/01/21 21:59 05:59 13:59 Intake Total 1640 1850 800 Output Total 9098 524 6307 Balance 615 1350 -600 Weight 101.378 kg Intake: IV 1000 1000 Sodium Chloride 0.9% 1,000 ml @ 1000 1000 100 mls/hr IV .Q10H MALENA Rx#: [id number] Oral 640 850 800 Output: Void Amount 150 200 Stool 897 497 9474 Other: Meal Glucerna Percent of Meal Consumed 100% Feeding Ability Independent Urine Appearance Clear Clear Urine Color Bright Yellow Bright Yellow Stool Color Green Green Brown Green Stool Consistency Liquid Watery Liquid Watery OBJ DATA Labs CBC & Chem 7: 01/01/21 06:11 01/01/21 06:11 Labs: Abnormal Lab Results 01/01/21 01/01/21 01/01/21 08:05 06:11 06:11 WBC 14.1 H RBC Hgb Hct MCHC 30.1 L [place] % (Auto) [place] # (Auto) 1.23 H Absolute Neutrophils 8.93 H Sodium 128 L Carbon Dioxide 10 L* BUN 28 H Glucose 152 H Calcium Phosphorus GGT Lactate Dehydrogenase 280 H Total Protein Triglycerides 793 H Vancomycin Trough 20.5 H* 12/31/20 12/31/20 12/30/20 06:01 06:01 04:55 WBC 11.2 H RBC Hgb Hct MCHC 29.9 L [place] % (Auto) [place] # (Auto) 1.25 H Absolute Neutrophils Sodium 129 L Carbon Dioxide 14 L 18 L BUN 30 H 27 H Glucose 143 H 135 H Calcium 8.5 L Phosphorus 1.7 L GGT 37 H Lactate Dehydrogenase Total Protein 5.8 L Triglycerides 699 H 619 H Vancomycin Trough 12/30/20 04:55 WBC RBC 3.78 L Hgb 11.1 L Hct 35.8 L MCHC [place] % (Auto) 12.2 H [place] # (Auto) 1.03 H Absolute Neutrophils Sodium Carbon Dioxide BUN Glucose Calcium Phosphorus GGT Lactate Dehydrogenase Total Protein Triglycerides Vancomycin Trough Meds: Medications Acetaminophen (Acetaminophen 325 Mg Tablet) 650 mg PO Q4-6HP PRN; Protocol PRN Reason: Per Pain Protocol/Fever > 101 Hydrocodone Bitart/Acetaminophen (Hydrocodone/Apap 5/325mg Tablet) 0 tab PO Q8HP PRN; Protocol PRN Reason: Per Pain Protocol Last Admin: 12/31/20 21:36 Dose: 1 tab Documented by: Apixaban (Apixaban 5 Mg Tablet) 5 mg PO BID [facility] Last Admin: 12/31/20 21:36 Dose: 5 mg Documented by: Bisacodyl (Bisacodyl 10 Mg Supp.Rect) 10 mg [place] Q2-3DAYS PRN PRN Reason: Constipation Cyclobenzaprine HCl (Cyclobenzaprine 10 Mg Tablet) 10 mg PO BIDP PRN PRN Reason: Spasms Last Admin: 12/30/20 17:12 Dose: 10 mg Documented by: Dextrose (Dextrose 50% 50 Ml Vial) 0 ml IV UD PRN PRN Reason: Hypoglycemia Diagnostic Test (Pha) (Accu-Chek 1 Each Strip) 1 each FS ACHS [facility] Last Admin: 01/01/21 08:10 Dose: 1 each Documented by: Docusate Sodium (Docusate Sodium 100 Mg Capsule) 100 mg PO BID [facility] Last Admin: 12/31/20 21:54 Dose: Not Given Documented by: Duloxetine HCl (Duloxetine 30 Mg Capsule) 30 mg PO BID [facility] Last Admin: 12/31/20 21:36 Dose: 30 mg Documented by: Furosemide (Furosemide 20 Mg Tablet) 20 mg PO QDAY [facility] Last Admin: 12/31/20 10:23 Dose: 20 mg Documented by: Gabapentin (Gabapentin 300 Mg Capsule) 300 mg PO TID [facility] Last Admin: 12/31/20 21:36 Dose: 300 mg Documented by: Glucose (Dextrose 31 Gm Oral.Susp) 15 gm PO PRN PRN PRN Reason: Hypoglycemia Heparin Sodium (Porcine) (Heparin Flush 10 Units/Ml 5 Ml Syringe) 5 ml IV Q12 [facility] Last Admin: 01/01/21 09:01 Dose: Not Given Documented by: Hydralazine HCl (Hydralazine 20 Mg/Ml Vial) 10 mg IV Q4-6HP PRN PRN Reason: Hypertension Magnesium Sulfate (Magnesium Sulfate) 2 gm in 50 mls @ 50 mls/hr IV UD PRN PRN Reason: MG = or < 1.7 Potassium Chloride 40 meq/ (Dextrose) 520 mls @ 130 mls/hr IV UD PRN PRN Reason: K+ = or < 3.5 Sodium Chloride (Sodium Chloride 0.9%) 1,000 mls @ 100 mls/hr IV .Q10H [facility] Last Admin: 01/01/21 06:04 Dose: 100 mls/hr Documented by: Acetaminophen (Ofirmev) 650 mg in 65 mls @ 130 mls/hr IV Q6HP PRN; Protocol PRN Reason: Per Pain Protocol/Fever > 101 Insulin Glargine (Insulin Glargine, Human 1 Unit/0.01 Ml) 10 unit SQ BID [facility] Last Admin: 12/31/20 21:47 Dose: 10 units Documented by: Insulin Human Lispro (Insulin Lispro 1 Unit/0.01 Ml Unit) 0 unit SQ [facility]; Protocol Last Admin: 01/01/21 08:59 Dose: Not Given Documented by: Iron Carb/Multivit/In Home Aide/Folic Acid (Multivit,Ther Iron,Ca,Fa & Min 1 Tablet) 1 tab PO DAILY [facility] Last Admin: 12/31/20 10:23 Dose: 1 tab Documented by: Levothyroxine Sodium ([facility]ine 125 Mcg Tablet) [facility] Last Admin: 01/01/21 08:25 Dose: 250 mcg Documented by: Magnesium Oxide (Magnesium Oxide 400 Mg Tablet) 400 mg PO BID [facility] Last Admin: 12/31/20 21:37 Dose: 400 mg Documented by: Melatonin (Melatonin 3 Mg Tablet) 3 mg PO HSP PRN PRN Reason: Insomnia Metoprolol Succinate (Metoprolol Succinate 50 Mg Tab.Xl.24h) 50 mg PO DAILY [facility] Last Admin: 12/31/20 10:22 Dose: 50 mg Documented by: Metoprolol Tartrate (Metoprolol Tartrate 5 Mg/5 Ml Vial) 5 mg IV Q5M PRN PRN Reason: Heart Rate > 140 bpm Ondansetron HCl (Ondansetron 4 Mg Odt Tablet) 4 mg SL Q4HP PRN PRN Reason: Nausea Last Admin: 12/30/20 22:39 Dose: 4 mg Documented by: Ondansetron HCl (Ondansetron 4 Mg/2 Ml Vial) 4 mg IV Q4-6HP PRN; Protocol PRN Reason: Nausea And Vomiting Last Admin: 01/01/21 08:35 Dose: 4 mg Documented by: Polyethylene Glycol (Polyethylene Glycol 3350 17 Gm Packet) 17 gm PO DAILYP PRN PRN Reason: Constipation Potassium Chloride (Potassium Chloride 20 Meq Packet) 40 meq PO DAILYP PRN PRN Reason: K+ < 3.5 Prednisone (Prednisone 20 Mg Tablet) 20 mg PO [facility] Last Admin: 01/01/21 08:26 Dose: 20 mg Documented by: Promethazine HCl (Promethazine 25 Mg Tablet) 25 mg PO Q6HP PRN PRN Reason: Nausea Last Admin: 01/01/21 02:53 Dose: 25 mg Documented by: Pyridostigmine Nebo (Pyridostigmine Nebo 10 Mg/2 Ml Ampul) 5 mg IM 1HRACBID [facility] Last Admin: 01/01/21 08:27 Dose: 5 mg Documented by: Sodium Chloride (0.9 % Sodium Chloride 10 Ml Syringe) 10 ml IV Q12 [facility] Last Admin: 12/31/20 21:23 Dose: Not Given Documented by: Sodium Chloride (0.9 % Sodium Chloride 10 Ml Syringe) 10 ml IV Q8 [facility] Last Admin: 01/01/21 05:27 Dose: Not Given Documented by: Thiamine HCl (Thiamine 100 Mg Tablet) 100 mg PO DAILY [facility] Last Admin: 12/31/20 10:22 Dose: 100 mg Documented by: Vancomycin HCl (Vancomycin Per Pharmacy) 1 order IV UD [facility]; Protocol A/P Narrative A/P Narrative: * Nausea vomiting abdominal pain-surgery on board. Suspicious for bowel obstruction * Mixed gap acidosis secondary to excessive bicarbonate loss from ostomy(bicarb 10) nephrology consulted * Severe sepsis with evidence of endorgan dysfunction . Clinically resolved. Continue vancomycin for additional 14 days per ID. * Coag negative staph bacteremia-surveillance cultures negative so far/echocardiogram no evidence of valvular vegetation. ID recommends 2 weeks vancomycin as a port salvage treatment. * Complicated Serratia UTI-resolved, completed antibiotics * Increased ostomy output. Negative abdominal imaging. Improved post addition of cholestyramine/lower pyridostigmine per surgery * Hyperkalemia resolved with Kayexalate * Hypercalcemia 18 on presentation-now down to 9.2 post bisphosphonate/crystalloids * Acute kidney injury -resolved. Creatinine at baseline * Multifocal PE, continuing anticoagulation on apixaban * DM type II continue basal prandial insulin/CC diet * Anxiety disorder continue duloxetine * Neuropathy continue gabapentin * History of hypothyroid continue thyroxine * History of recurrent SBO follows up with Dr. Currie surgery. 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
[2021-01-01] MEDS: INSULIN GLARGINE, HUMAN 1 UNIT/0.01 ML SQ SCH ×2 (10:41→21:24)
[2021-01-01] MEDS: DOCUSATE SODIUM 100 MG CAPSULE PO SCH (10:43)
[2021-01-01] MEDS: MULTIVIT,THER IRON,CA,FA & MIN 1 TABLET PO SCH (10:43)
[2021-01-01] MEDS: THIAMINE 100 MG TABLET PO SCH (10:43)
[2021-01-01] MEDS: FUROSEMIDE 20 MG TABLET PO SCH (10:44)
[2021-01-01] MEDS: METOPROLOL SUCCINATE 50 MG TAB.XL.24H PO SCH (10:44)
[2021-01-01] MEDS: APIXABAN 5 MG TABLET PO SCH ×2 (10:44→21:08)
[2021-01-01] MEDS: MAGNESIUM OXIDE 400 MG TABLET PO SCH ×2 (10:44→21:08)
[2021-01-01] MEDS: DULoxetine 30 MG CAPSULE PO SCH ×2 (10:44→21:08)
[2021-01-01] MEDS: GABAPENTIN 300 MG CAPSULE PO SCH ×3 (10:44→21:08)
[2021-01-01] MEDS: HYDROcodone/APAP 5/325MG TABLET PO PRN ×2 (10:52→21:08)
[2021-01-01] MEDS: VANCOMYCIN 1,500 MG in 0.9 % SODIUM CHLORIDE 500 ML IV SCH (11:47)
[2021-01-01] MEDS ORDERED: SODIUM BICARBONATE 50 MEQ/50 ML VIAL IV ONE ×2 (12:49→13:30)
--- NOTE | 2021-01-01 13:45 | Nephrology Consult Note ---
HPI Data of Consult Primary Care Provider: Douglas Haque Consult Narrative cc:: CC: Prince Sullivan Asked to see 60 y/o F with complex medical Hx admitted earlier in month with ARF, Hyperkalemia, Hypercalcemia with pseudoobstruction of the bowel, 3rd space losses followed by >5 liter liquid stool output after pseudobstruction relieved. Readmitted with Coag neg staph bacteremia (port related) and serratia bacturia with mild elevation of venous lactate level. On vanco and ceftriaxone. Developed marked decrease in Serum bicarbonated over past 24-28 hours with mild hyponatremia. Question of GI or renal bicarb losses vs lactate production (sepsis/ischemic bowel) or failure of hepatic lactate utilization. Of note, the urine was maximally acidified on admission (12/27), arguing AGAINST an underlying RTA. Consistent tachycardia past 36 hr but no documented hypotension. Laboratory Results - last 48 hr 12/31/20 12/31/20 01/01/21 06:01 06:01 06:11 WBC 11.2 H 14.1 H RBC 4.26 4.84 Hgb 12.5 14.0 Hct 41.8 46.5 MCV 98.1 96.1 MCH 29.3 28.9 MCHC 29.9 L 30.1 L RDW 14.1 14.0 Plt Count 260 289 MPV 9.4 9.5 Neut % (Auto) 58.1 63.3 Lymph % (Auto) 27.9 25.0 [place] % (Auto) 11.2 8.7 Eos % (Auto) 2.1 2.2 Baso % (Auto) 0.7 0.8 Lymph # (Auto) 3.11 3.52 [place] # (Auto) 1.25 H 1.23 H Eos # (Auto) 0.23 0.31 Baso # (Auto) 0.08 0.11 Absolute Neutrophils 6.48 8.93 H Sodium 129 L Potassium 4.5 Chloride 106 Carbon Dioxide 14 L Anion Gap 9.0 BUN 30 H Creatinine 0.8 GFR Calculation 81 Glucose 143 H Uric Acid 4.9 Calcium 8.5 L Phosphorus 2.7 Magnesium 1.9 Total Bilirubin < 0.2 Direct Bilirubin < 0.2 GGT 37 H AST 15 ALT 18 Alkaline Phosphatase 91 Lactate Dehydrogenase 221 Total Protein 6.3 Albumin 3.5 Globulin 2.8 Albumin/Globulin Ratio 1.3 Triglycerides 699 H Vancomycin Trough 01/01/21 01/01/21 06:11 08:05 WBC RBC Hgb Hct MCV MCH MCHC RDW Plt Count MPV Neut % (Auto) Lymph % (Auto) [place] % (Auto) Eos % (Auto) Baso % (Auto) Lymph # (Auto) [place] # (Auto) Eos # (Auto) Baso # (Auto) Absolute Neutrophils Sodium 128 L Potassium 4.1 Chloride 103 Carbon Dioxide 10 L* Anion Gap 15.0 BUN 28 H Creatinine 0.9 GFR Calculation 70 Glucose 152 H Uric Acid 4.8 Calcium 8.6 Phosphorus 2.6 Magnesium 2.0 Total Bilirubin < 0.2 Direct Bilirubin < 0.2 GGT 36 AST 14 ALT 19 Alkaline Phosphatase 101 Lactate Dehydrogenase 280 H Total Protein 7.0 Albumin 3.6 Globulin 3.4 Albumin/Globulin Ratio 1.1 Triglycerides 793 H Vancomycin Trough 20.5 H* Microbiology 12/29/20 10:52 Blood Blood Culture - Preliminary 12/29/20 10:40 Blood Blood Culture - Preliminary 12/27/20 16:43 Blood Blood Culture - Final Coagulase negative staph 12/27/20 17:25 Urine - Catheterized Urine Culture - Final Serratia marcescens Vital Signs Temp Pulse Resp BP BP BP Pulse Ox 01/01/21 11:38 36.2 C 111 H 18 122/85 99 01/01/21 08:15 93 01/01/21 07:53 36.6 C 117 H 16 135/84 93 01/01/21 03:00 36.4 C 106 H 12 143/90 93 01/01/21 00:00 36.3 C 104 H 18 151/93 96 12/31/20 19:05 36.3 C 101 H 16 131/80 96 12/31/20 16:00 36.3 C 107 H 18 127/84 97 Intake and Output 12/31/20 01/01/21 01/01/21 21:59 05:59 13:59 Intake Total 1640 1850 800 Output Total 3226 891 4991 Balance 615 1350 -1500 Intake: IV 1000 1000 Sodium Chloride 0.9% 1,000 ml @ 1000 1000 100 mls/hr IV .Q10H [facility] Rx#: [id number] Oral 640 850 800 Output: Void Amount 150 500 Stool 703 870 0374 Other: Meal Glucerna Percent of Meal Consumed 100% Feeding Ability Independent Urine Appearance Clear Clear Urine Color Bright Yellow Dark Yellow Stool Color Green Green Green Stool Consistency Liquid Watery Liquid Watery Weight 101.378 kg AB.12//91/8.8 Lactic acid 8.8 Suspect this is increased GI bircarb loss with copious amounts of a bicarb rich ileostomy output. NaHCO3 IV Octreotide to decrease HCO3 GI losses Unine studies to confirm source of Bicarb losses BID monitoring of electrolytes Current Medications Acetaminophen (Acetaminophen 325 Mg Tablet) 650 mg PO Q4-6HP PRN; Protocol PRN Reason: Per Pain Protocol/Fever > 101 Hydrocodone Bitart/Acetaminophen (Hydrocodone/Apap 5/325mg Tablet) 0 tab PO Q8HP PRN; Protocol PRN Reason: Per Pain Protocol Last Admin: 01/01/21 10:52 Dose: 1 tab Documented by: Apixaban (Apixaban 5 Mg Tablet) 5 mg PO BID [facility] Last Admin: 01/01/21 10:44 Dose: 5 mg Documented by: Cyclobenzaprine HCl (Cyclobenzaprine 10 Mg Tablet) 10 mg PO BIDP PRN PRN Reason: Spasms Last Admin: 12/30/20 17:12 Dose: 10 mg Documented by: Dextrose (Dextrose 50% 50 Ml Vial) 0 ml IV UD PRN PRN Reason: Hypoglycemia Diagnostic Test (Pha) (Accu-Chek 1 Each Strip) 1 each FS ACHS [facility] Last Admin: 01/01/21 11:55 Dose: 1 each Documented by: Duloxetine HCl (Duloxetine 30 Mg Capsule) 30 mg PO BID [facility] Last Admin: 01/01/21 10:44 Dose: 30 mg Documented by: Furosemide (Furosemide 20 Mg Tablet) 20 mg PO QDAY [facility] Last Admin: 01/01/21 10:44 Dose: 20 mg Documented by: Gabapentin (Gabapentin 300 Mg Capsule) 300 mg PO TID [facility] Last Admin: 01/01/21 10:44 Dose: 300 mg Documented by: Glucose (Dextrose 31 Gm Oral.Susp) 15 gm PO PRN PRN PRN Reason: Hypoglycemia Heparin Sodium (Porcine) (Heparin Flush 10 Units/Ml 5 Ml Syringe) 5 ml IV Q12 [facility] Last Admin: 01/01/21 09:01 Dose: Not Given Documented by: Hydralazine HCl (Hydralazine 20 Mg/Ml Vial) 10 mg IV Q4-6HP PRN PRN Reason: Hypertension Magnesium Sulfate (Magnesium Sulfate) 2 gm in 50 mls @ 50 mls/hr IV UD PRN PRN Reason: MG = or < 1.7 Potassium Chloride 40 meq/ (Dextrose) 520 mls @ 130 mls/hr IV UD PRN PRN Reason: K+ = or < 3.5 Sodium Chloride (Sodium Chloride 0.9%) 1,000 mls @ 100 mls/hr IV .Q10H [facility] Last Admin: 01/01/21 06:04 Dose: 100 mls/hr Documented by: Acetaminophen (Ofirmev) 650 mg in 65 mls @ 130 mls/hr IV Q6HP PRN; Protocol PRN Reason: Per Pain Protocol/Fever > 101 Insulin Glargine (Insulin Glargine, Human 1 Unit/0.01 Ml) 10 unit SQ BID [facility] Last Admin: 01/01/21 10:41 Dose: 10 units Documented by: Insulin Human Lispro (Insulin Lispro 1 Unit/0.01 Ml Unit) 0 unit SQ ACHS [facility]; Protocol Last Admin: 01/01/21 12:24 Dose: 2 units Documented by: Iron Carb/Multivit/Tyler/Folic Acid (Multivit,Ther Iron,Ca,Fa & Min 1 Tablet) 1 tab PO DAILY [facility] Last Admin: 01/01/21 10:43 Dose: Not Given Documented by: Levothyroxine Sodium (Levothyroxine 125 Mcg Tablet) 250 mcg PO QAMAC [facility] Last Admin: 01/01/21 08:25 Dose: 250 mcg Documented by: Magnesium Oxide (Magnesium Oxide 400 Mg Tablet) 400 mg PO BID [facility] Last Admin: 01/01/21 10:44 Dose: 400 mg Documented by: Melatonin (Melatonin 3 Mg Tablet) 3 mg PO HSP PRN PRN Reason: Insomnia Metoprolol Succinate (Metoprolol Succinate 50 Mg Tab.Xl.24h) 50 mg PO DAILY [facility] Last Admin: 01/01/21 10:44 Dose: 50 mg Documented by: Metoprolol Tartrate (Metoprolol Tartrate 5 Mg/5 Ml Vial) 5 mg IV Q5M PRN PRN Reason: Heart Rate > 140 bpm Octreotide Acetate (Octreotide Acetate 50 Mcg/Ml Ampul) 50 mcg SQ TID [facility] Ondansetron HCl (Ondansetron 4 Mg Odt Tablet) 4 mg SL Q4HP PRN PRN Reason: Nausea Last Admin: 12/30/20 22:39 Dose: 4 mg Documented by: Ondansetron HCl (Ondansetron 4 Mg/2 Ml Vial) 4 mg IV Q4-6HP PRN; Protocol PRN Reason: Nausea And Vomiting Last Admin: 01/01/21 08:35 Dose: 4 mg Documented by: Polyethylene Glycol (Polyethylene Glycol 3350 17 Gm Packet) 17 gm PO DAILYP PRN PRN Reason: Constipation Potassium Chloride (Potassium Chloride 20 Meq Packet) 40 meq PO DAILYP PRN PRN Reason: K+ < 3.5 Prednisone (Prednisone 20 Mg Tablet) 20 mg PO [facility] Last Admin: 01/01/21 08:26 Dose: 20 mg Documented by: Promethazine HCl (Promethazine 25 Mg Tablet) 25 mg PO Q6HP PRN PRN Reason: Nausea Last Admin: 01/01/21 02:53 Dose: 25 mg Documented by: Pyridostigmine [place] (Pyridostigmine [place] 10 Mg/2 Ml Ampul) 10 mg IM Q6H [facility] Last Admin: 01/01/21 13:10 Dose: 10 mg Documented by: Sodium Chloride (0.9 % Sodium Chloride 10 Ml Syringe) 10 ml IV Q12 [facility] Last Admin: 01/01/21 10:46 Dose: Not Given Documented by: Sodium Chloride (0.9 % Sodium Chloride 10 Ml Syringe) 10 ml IV Q8 [facility] Last Admin: 01/01/21 13:13 Dose: Not Given Documented by: Thiamine HCl (Thiamine 100 Mg Tablet) 100 mg PO DAILY [facility] Last Admin: 01/01/21 10:43 Dose: Not Given Documented by: Vancomycin HCl (Vancomycin Per Pharmacy) 1 order IV [facility] [place]; Protocol Constitutional Constitutional: Present anorexia, fatigue, lethargy, malaise, weakness and weight loss EENT Eyes: Absent change in vision, diplopia and pain Ears: Absent decreased hearing and tinnitus Nose, mouth and throat: Absent dysphagia, hoarseness, sinus pressure, sore throat and throat swelling Cardiovascular Cardiovascular: Present palpatations and rapid heart rate; Absent chest pain, dyspnea on exertion, lightheadedness, orthopnea and pedal edema Respiratory Respiratory: Absent cough, dyspnea, wheezing, snoring, chest congestion and pain with cough Gastrointestinal Gastrointestinal: Present loose stools and nausea; Absent abdominal pain, belching, change in bowel habits, change in stool character, constipation, cramp ing and vomiting Genitourinary Genitourinary: Present dysuria, urinary frequency and urinary hesitancy Musculoskeletal Musculoskeletal: Present abnormal gait, arthralgias, muscle cramps, muscle weakness, myalgias and numbness Integumentary Integumentary: Absent pruritus and swelling Neurological Neurological: Present abnormal gait, dizziness, headache(s) and weakness; Absent confusion, convulsions, focal weakness, sensory deficit, syncope and tingling Psychiatric Psychiatric: Present depression and memory loss Endocrine Endocrine: Present palpitations Hematologic/Lymphatic Hematologic/Lymphatic: Present easy bruising; Absent easy bleeding and lymphadenopathy Allergic/Immunologic Allergic/Immunologic: Absent tongue swelling, throat swelling, uticaria, wheezin g and lip swelling PFSH PFSH All Active Problems (Updated 01/01/21 @ 14:31 by Zaid Oh MD) Hyponatremia with decreased serum osmolality (Acute) Metabolic acidosis with normal anion gap and failure of bicarbonate regeneration (Acute) Myasthenia gravis (Chronic) Polyglandular autoimmune syndrome (Chronic) Sarcoidosis (Chronic) Hypothyroidism (Chronic) Hypertension (Chronic) Abnormal liver enzymes (Chronic) Chronic use of steroids (Chronic) Recurrent intestinal obstruction (Chronic) Obesity, Class II, BMI 35-39.9 (Chronic) Diabetes mellitus type 2, uncontrolled (Chronic) Chronic intestinal pseudo-obstruction (Chronic) Abdominal pain (Chronic) Chronic, continuous use of opioids (Chronic) LA (obstructive sleep apnea) (Chronic) Recurrent abdominal pain (Chronic) Low blood magnesium level (Chronic) Hyponatremia (Acute) Elevated LFTs (Acute) Small bowel obstruction (Acute) Dehydration (Acute) Primary chronic pseudo-obstruction of small intestine (Acute) UTI (urinary tract infection) (Acute) Hypocalcemia (Acute) Nausea & vomiting (Acute) Severe sepsis (Acute) 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 (Acute) Acute UTI (Acute) Hypercalcemia (Acute) COVID-19 (Acute) Acute kidney injury (Acute) Hypercalcemia (Acute) Hyponatremia (Acute) Elevated serum creatinine (Acute) Low back pain (Acute) Partial small bowel obstruction (Acute) Nausea and vomiting (Acute) Hypokalemia (Acute) Diabetes mellitus (Acute) Recurrent intestinal obstruction (Acute) Intractable abdominal pain (Acute) Intractable vomiting with nausea (Acute) Small bowel ischemia (Acute) Pneumatosis intestinalis (Acute) Right knee sprain (Acute) Generalized weakness (Acute) Hypercalcemia (Acute) Acute hyperkalemia (Acute) Leukocytosis (Acute) Acidosis, lactic (Acute) Fever of unknown origin (Acute) Medical History Abdominal pain Abdominal pain Abdominal wound dehiscence Abnormal liver enzymes Achalasia and cardiospasm Acute respiratory insufficiency Adverse reaction to drug Anaphylaxis Bowel obstruction 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 Chronic, continuous use of opioids Constipation due to neurogenic bowel Constipation due to pain medication therapy Dehydration Dehydration Diabetes mellitus type 2, uncontrolled Encounter for care related to Port-a-Cath Fecal impaction Foot sprain Hypercalcemia Hypertension Hypocalcemia Hyponatremia Hypothyroidism Ileus Infiltrate of lung present on imaging of chest Intractable vomiting Lactic acid acidosis Low blood magnesium level Myasthenia gravis Prednisone dependent at 20 mg daily. Nausea Nausea & vomiting Nausea & vomiting Nausea and vomiting Obesity, Class II, BMI 35-39.9 Chronic. 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 Pseudoobstruction of colon Pyelonephritis Recurrent abdominal pain Recurrent intestinal obstruction many recurrences; many surgical interventions Sarcoidosis Sepsis Sepsis associated hypotension Sepsis with acute hypoxic respiratory failure Severe sepsis Sigmoid volvulus Sinus tachycardia Sinus tachycardia Small bowel obstruction Small bowel obstruction Small bowel obstruction Small bowel obstruction Small bowel obstruction Small bowel obstruction Small bowel obstruction due to adhesions Small bowel obstruction due to postoperative adhesions Small bowel obstruction, partial Supraventricular tachycardia UTI (urinary tract infection) UTI (urinary tract infection) Volvulus of sigmoid colon Surgical History History of exploratory laparotomy 10/17/2017-with adhesiolysis History of exploratory laparotomy 12/01/2017-with adhesiolysis History of exploratory laparotomy 07/18/2018 History of exploratory laparotomy 08/10/2018-Exploratory laparotomy with small bowel adhesiolysis and incisional hernia repair with mesh graft History of exploratory laparotomy 11/30/2020-with total intraabdominal adhesiolysis S/P ileostomy Family History Father CAD (coronary artery disease) Mother CAD (coronary artery disease) Grandfather CVA (cerebral vascular accident) Grandmother CVA (cerebral vascular accident) Social History smoking status: Never smoker alcohol intake frequency: does not drink substance use type: does not use MEDS/ALLERGIES Home Medications and Allergies Home Medications Medication Instructions Recorded Confirmed Type duloxetine 30 mg PO BID 11/30/16 12/27/20 History levothyroxine 250 mcg PO QAMAC 08/20/17 12/27/20 History calcitriol See Rx Instructions .ROUTE .COMPLEX 02/11/19 12/27/20 History insulin glargine 10 unit SQ BID 09/30/19 12/27/20 History cyclobenzaprine 10 mg PO BIDP PRN 12/13/19 12/27/20 History magnesium oxide 400 mg PO BID 12/13/19 12/27/20 History ondansetron 4 mg SL Q4HP PRN 12/24/19 12/27/20 History promethazine 25 mg NC Q6HP PRN 12/24/19 12/27/20 History pyridostigmine bromide 5 mg/mL 10 mg IM Q6H #240 ml 01/04/20 12/27/20 Rx injection solution metformin 500 mg PO BID 07/12/20 12/27/20 History syringe with needle 3 mL 25 gauge See Rx Instructions .ROUTE 08/31/20 12/27/20 Rx x 1" .COMPLEX #100 unspecified acetaminophen 1,000 mg PO Q6HP PRN 09/14/20 12/27/20 History gabapentin 300 mg PO BID 09/14/20 12/27/20 History prednisone 20 mg PO QAMCC 09/14/20 12/27/20 History filter needles 19 x 1 1/2" #100 each 10/19/20 12/27/20 Rx promethazine 25 mg tablet 25 mg PO Q6HP PRN #60 tab 11/24/20 12/27/20 Rx furosemide 20 mg tablet 20 mg PO QDAY #30 tab 12/08/20 12/27/20 Rx Accu-Chek 1 each FS BID 12/14/20 12/27/20 History calcium carbonate [Tums 500] 500 mg PO TID 12/27/20 12/27/20 History metoprolol succinate 50 mg PO DAILY 12/27/20 12/27/20 History Allergies Allergy/AdvReac Type Severity Reaction Status Date / Time Sulfa (Sulfonamide Allergy Severe Anaphylaxis Verified 12/27/20 15:25 Antibiotics) adhesive tape AdvReac Mild Blister Verified 12/27/20 15:25 metoclopramide [From Reglan] AdvReac Mild Anxiety Verified 12/27/20 15:25 steri strips AdvReac Mild Blister Uncoded 12/02/19 06:48 Physical Examination Vital Signs Vital signs: Temp Pulse Resp BP Pulse Ox 36.2 C 111 H 18 122/85 99 01/01/21 11:38 01/01/21 11:38 01/01/21 11:38 01/01/21 11:38 01/01/21 11:38 General Appearance General appearance: appears started age, obese, chronically ill and fatigue Exam Narrative: Non-toxic EENT EENT: ATNC, PERRL, mucous membranes dry and hearing intact Neck Neck: no JVD, no carotid bruit and supple Respiratory Respiratory: clear Cardiovascular Cardiology: no murmurs, no edema, regular rhythm, rapid rhythm, normal S1 and split S1 Gastrointestinal Gastrointestinal: normoactive bowel sounds (hyperactive), obese and distended Integumentary Integumentary: no rash and warm and dry Neurologic Neurologic: no focal deficit, no asterixis, alert and oriented x3 and CN 3-12 intact Musculoskeletal Musculoskeletal: no deformities, no erythema and no cyanosis Psychiatric Psychiatric: mood/affect appropriate Additional Exam Additional exam: Right lower Quad ileostomy Results Lab Results Result Diagrams: 01/01/21 06:11 01/01/21 06:11 Lab results: Most recent lab results Calcium 8.6 mg/dL (8.6-10.4) 01/01/21 06:11 Phosphorus 2.6 mg/dL (2.5-4.5) 01/01/21 06:11 Magnesium 2.0 mg/dL (1.6-2.5) 01/01/21 06:11 A/P Assessment and plan (1) Metabolic acidosis with normal anion gap and failure of bicarbonate regeneration: Status: Acute (2) Hyponatremia with decreased serum osmolality: Status: Acute Narrative A/P Narrative: 1. While awaiting rest of testing and octreotide to decrease GI bicarb losses, I recommend a NaBicarb drip 2. Serial BMP and daily mag and phos 3. Check TSH, cortisol in AM 4. Reducing GI fluid and bicarb losses will be fatima. Time Spent With Patient Time: Total time spent is greater than 50% in coordination of care (as documented) at patient's floor/unit and/or counseling patient: Total time spent with greater than 50% in coordination of care (as documented) at patient's floor/unit and/or counseling patient:: Greater than 35 minutes
[2021-01-01 13:50] LABS: Lactate Dehydrogenase 240 U/L (135-225)
[2021-01-01] MEDS: OCTREOTIDE ACETATE 50 MCG/ML AMPUL SQ SCH ×2 (14:45→21:57)
--- NOTE | 2021-01-01 14:55 | General Surgery Progress Note ---
SUBJECTIVE Subjective Patient information: Note initiated : 01/01/21 at 2:47 pm Service Date, if different from initiated Date: [] Patient: Dayanna Guo 60 y/o F admitted on 12/27/20 for weakness, cool clammy. Chief Complaint: [] Principal diagnosis: Chronic intestinal pseudoobstruction; high output ileostomy Interval history: Patient has had some nausea and did not tolerate the cholestyramine. She had more abdominal distention throughout the night and her stomach and small bowel appears to be dilated down to the stoma. She had over 2000 cc of liquid output over the past 24hours. Serum sodium 128, potassium 4. 1, BUN 28, creatinine 0.9, calcium 8.6. Constitutional Vitals: Vital Signs Temp Pulse Resp BP Pulse Ox 97.1 F 111 H 18 122/85 99 01/01/21 11:38 01/01/21 11:38 01/01/21 11:38 01/01/21 11:38 01/01/21 11:38 Period Temp Pulse Resp BP Sys/Archuleta Pulse Ox Last 24 Hr 97.1 F-97.8 F 101-117 12-18 122-151/80-93 93-99 Intake and Output 01/01/21 01/01/21 01/01/21 05:59 13:59 21:59 Intake Total 1850 800 Output Total 500 2300 Balance 1350 -1500 Intake & Output: Intake & Output 01/01/21 01/01/21 01/01/21 05:59 13:59 21:59 Intake Total 1850 800 Output Total 500 2300 Balance 1350 -1500 Intake: IV 1000 Sodium Chloride 0.9% 1,000 ml @ 1000 100 mls/hr IV .Q10H [facility] Rx#: [id number] Oral 850 800 Output: Void Amount 500 Stool 500 1800 Other: Urine Appearance Clear Urine Color Dark Yellow Stool Color Green Green Stool Consistency Watery Liquid Head Head exam: Present atraumatic, normal inspection and normocephalic Eye Eye exam: Present EOMI and normal appearance Pupils: Present PERRL ENT ENT exam: Present mucous membranes moist, normal exam and normal oropharynx Neck Neck exam: Present full ROM; Absent lymphadenopathy and tenderness Respiratory Respiratory exam: Present normal respiratory exam and CTAB; Absent rales, rhonchi and wheezes Cardiovascular Cardiovascular exam: Present RRR, +S1, +S2 and tachycardia (Tachycardia is significantly improved); Absent JVD GI/Abdominal GI/Abdominal exam: Present soft, distended (Distention is significantly worse than on yesterday) and hyperactive bowel sounds; Absent organomegaly Additional comments: Stoma is patent and functioning normally Extremities Exam Extremities exam: Present full ROM and neurovascular intact; Absent normal inspection and pedal edema Back Exam Back exam: Present full ROM and normal inspection Neurological Exam Neurological exam: Present alert, CN II-XII intact, normal gait, oriented X3 and reflexes normal Psychiatric Psychiatric exam: Present normal affect and normal mood A/P Assessment and plan (1) Primary chronic pseudo-obstruction of small intestine: Status: Acute (2) Nausea and vomiting: Status: Acute Qualifiers: Vomiting Intractability: non-intractable Vomiting type: unspecified Qualified Code(s): R11.2 - Nausea with vomiting, unspecified (3) Myasthenia gravis: Status: Chronic Comment: Prednisone dependent at 20 mg daily. (4) Polyglandular autoimmune syndrome: Status: Chronic (5) Ileostomy status: Status: Acute Narrative A/P Narrative: Resume Regonol at every 6 hours to increase intestinal passage of flatus DC cholestyramine Start octreotide 50 mcg every 6 hours to reduce biliary and pancreatic secretions and hopefully reduce ostomy output and assist with correction of electrolytes Follow-up abdominal x-rays in the morning Time Spent With Patient Time: Total time spent is greater than 50% in coordination of care (as document ed) at patient's floor/unit and/or counseling patient:
--- NOTE | 2021-01-01 15:02 | XRay Report ---
HISTORY: Abdominal distention tightness, nausea and weakness FINDINGS: There are multiple air-fluid levels in the stomach and small intestine. The small bowel measures up to seven cm in transverse diameter. The stomach is not abnormally distended. No free intraperitoneal air is present. The colon has been resected. The small bowel dilatation has become significantly worse since 12/30/20 but is similar to previous studies. No mass is seen. Clips in the gallbladder fossa. IMPRESSION: Recurrent distal small bowel obstruction versus motility disorder. Recent small bowel follow-through showed similar dilatation of the intestine but no mechanical obstruction. Interpreted and Authenticated by: Zay Juarez 01/01/21
--- NOTE | 2021-01-01 15:27 | Internal Med Progress Note ---
SUBJECTIVE Subjective Patient information: Note initiated : 01/01/21 at 3:09 pm Service Date, if different from initiated Date: [] Patient: Dayanna Guo a 60 y/o F admitted on 12/27/20 for weakness, cool clammy. Chief Complaint: [] Principal diagnosis: Chronic intestinal pseudoobstruction; high output ileostomy Interval history: Interval history: Ms. Guo is a 60 year old F with a history of recurrent bowel obstruction and was recently discharged December 20 to nursing home facility. Patient was doing well however over the last 3 days nursing staff has noticed increasing weakness/cough/fatigue malaise and inability to function. She in all probability was exposed to sick contacts. She denies headache or ph otophobia endorses to weakness myalgia and joint aches. She denies increased ostomy output or dysuria, abdominal pain or distention. EMS was called after facility staff noticed her increasing lethargic and confused. Initial work-up was consistent with severe sepsis elevated white count/lactic acidosis without a clear source. Cultures were drawn patient was started on antibiotic coverage. Calcium at 18 with severe volume depletion. Patient was started on crystalloids. Notably she was discharged on diuretics after recent hospitalization. subsequently nephrology was consulted in light of hy percalcemia/potassium 5.9/acute kidney injury with a creatinine of 1.4. Per nephrology patient was started on crystalloid at 200 cc/bicarbonate drip/Kayexalate. Subsequently hospitalist service was consulted for admission At the time of evaluation patient is very lethargic drowsy and unable to open her eyes. She is barely able to verbalize and provide history. Most of history was obtained from review of medical records and ER physician. No family members present. 12/28-patient doing well. Calcium down to 12 from 18. More lucid alert. Bisphosphonates given today. Fever defervesced. White count downtrending from 19 point 8K to 12.4. No obvious source of infection. Case discussed with nephrology. Potassium down to 4.2 post Kayexalate. Ostomy output stable. No evidence of bowel obstruction. Continue existing treatment/crystalloids and supportive management with diet and therapies. Possible transition to SNF in 48 hours. [id number] cocci in blood culture. Serratia on urine culture. Antibiotic escalated to cefepime, continue vancomycin, surveillance cultures, e chocardiogram to rule out endocarditis. However clinically improving and improved electrolytes, creatinine 0.8, potassium 3.8, calcium down to 9.5 status post bisphosphonate. No overnight fever chills. Continue close monitoring. 12/30-patient complains of excessive ostomy output throughout the night. Could not sleep. However electrolytes improved with calcium 9.7. GPC bacteremia ID consulted. ID recommends discontinuing cefepime as unlikely Serratia as a cause of sepsis. Continue vancomycin. Echocardiogram EF 70%. No valvular vegetations noted on echocardiogram. Surgery consulted. Two-view abdominal imaging reveals nonspecific bowel gas pattern. Continue anticoagulation for PEs 12/31-patient doing better. Improved ostomy output on cholestyramine/lower dose of pyridostigmine. ID recommends continuation of vancomycin for 2 weeks as a port salvage treatment for bacteremia. Blood cultures coag negative staph. White count 11.2, phosphorus improved to 2.7 from 1.7. Tolerating diet. Ongoing therapies. 01/01-patient not feeling well this morning, persistent nausea/abdominal pain and lethargic. On crystalloids. Bicarb down to 10. Nephrology consulted. Also surgery on board for possible bowel obstruction. Continuing vancomycin for enterococcal bacteremia per ID. Worsening white count at 14.1, 01/02 Constitutional Vitals: Vital Signs Temp Pulse Resp BP Pulse Ox 97.1 F 111 H 18 122/85 99 01/01/21 11:38 01/01/21 11:38 01/01/21 11:38 01/01/21 11:38 01/01/21 11:38 Period Temp Pulse Resp BP Sys/[place] Pulse Ox Last 24 Hr 97.1 F-97.8 F 101-117 12-18 122-151/80-93 93-99 Intake and Output 01/01/21 01/01/21 01/01/21 05:59 13:59 21:59 Intake Total 1850 800 Output Total 500 2300 350 Balance 1350 -1500 -350 Intake & Output: Intake & Output 01/01/21 01/01/21 01/01/21 05:59 13:59 21:59 Intake Total 1850 800 Output Total 500 2300 350 Balance 1350 -1500 -350 Intake: IV 1000 Sodium Chloride 0.9% 1,000 ml @ 1000 100 mls/hr IV .Q10H MALENA Rx#: [id number] Oral 850 800 Output: Void Amount 500 Stool 500 1800 350 Other: Urine Appearance Clear Urine Color Dark Yellow Stool Color Green Green Brown Green Stool Consistency Watery Liquid Liquid Exam: General: Alert, Awake, No acute Distress, obese Eyes/N/T: EOMI, Head/Neck: neck supple, CV: RRR, No murmurs, Pulm: Clear b/l, no wheezing/rhonchi/rales Abd: soft, nontender, +BS x4, ostomy Ext: no clubbing/cyanosis, b/l LE mild edema Neuro: Alert, no focal deficits, moves all extremities, Skin: warm/dry OBJ DATA Labs CBC & Chem 7: 01/01/21 06:11 01/01/21 06:11 Labs: Abnormal Lab Results 01/01/21 01/01/21 01/01/21 08:05 08:05 06:11 WBC RBC Hgb Hct MCHC [place] % (Auto) [place] # (Auto) Absolute Neutrophils Sodium 128 L Carbon Dioxide 10 L* BUN 28 H Glucose 152 H Calcium Phosphorus GGT Lactate Dehydrogenase 240 H 280 H Total Protein Triglycerides 793 H Vancomycin Trough 20.5 H* 01/01/21 12/31/20 12/31/20 06:11 06:01 06:01 WBC 14.1 H 11.2 H RBC Hgb Hct MCHC 30.1 L 29.9 L [place] % (Auto) [place] # (Auto) 1.23 H 1.25 H Absolute Neutrophils 8.93 H Sodium 129 L Carbon Dioxide 14 L BUN 30 H Glucose 143 H Calcium 8.5 L Phosphorus GGT 37 H Lactate Dehydrogenase Total Protein Triglycerides 699 H Vancomycin Trough 12/30/20 12/30/20 04:55 04:55 WBC RBC 3.78 L Hgb 11.1 L Hct 35.8 L MCHC [place] % (Auto) 12.2 H [place] # (Auto) 1.03 H Absolute Neutrophils Sodium Carbon Dioxide 18 L BUN 27 H Glucose 135 H Calcium Phosphorus 1.7 L GGT Lactate Dehydrogenase Total Protein 5.8 L Triglycerides 619 H Vancomycin Trough Meds: Medications Acetaminophen (Acetaminophen 325 Mg Tablet) 650 mg PO Q4-6HP PRN; Protocol PRN Reason: Per Pain Protocol/Fever > 101 Hydrocodone Bitart/Acetaminophen (Hydrocodone/Apap 5/325mg Tablet) 0 tab PO Q8HP PRN; Protocol PRN Reason: Per Pain Protocol Last Admin: 01/01/21 10:52 Dose: 1 tab Documented by: Apixaban (Apixaban 5 Mg Tablet) 5 mg PO BID [facility] Last Admin: 01/01/21 10:44 Dose: 5 mg Documented by: Cyclobenzaprine HCl (Cyclobenzaprine 10 Mg Tablet) 10 mg PO BIDP PRN PRN Reason: Spasms Last Admin: 12/30/20 17:12 Dose: 10 mg Documented by: Dextrose (Dextrose 50% 50 Ml Vial) 0 ml IV UD PRN PRN Reason: Hypoglycemia Diagnostic Test (Pha) (Accu-Chek 1 Each Strip) 1 each FS ACHS [facility] Last Admin: 01/01/21 11:55 Dose: 1 each Documented by: Duloxetine HCl (Duloxetine 30 Mg Capsule) 30 mg PO BID [facility] Last Admin: 01/01/21 10:44 Dose: 30 mg Documented by: Furosemide (Furosemide 20 Mg Tablet) 20 mg PO QDAY [facility] Last Admin: 01/01/21 10:44 Dose: 20 mg Documented by: Gabapentin (Gabapentin 300 Mg Capsule) 300 mg PO TID [facility] Last Admin: 01/01/21 14:50 Dose: 300 mg Documented by: Glucose (Dextrose 31 Gm Oral.Susp) 15 gm PO PRN PRN PRN Reason: Hypoglycemia Heparin Sodium (Porcine) (Heparin Flush 10 Units/Ml 5 Ml Syringe) 5 ml IV Q12 [facility] Last Admin: 01/01/21 09:01 Dose: Not Given Documented by: Hydralazine HCl (Hydralazine 20 Mg/Ml Vial) 10 mg IV Q4-6HP PRN PRN Reason: Hypertension Magnesium Sulfate (Magnesium Sulfate) 2 gm in 50 mls @ 50 mls/hr IV UD PRN PRN Reason: MG = or < 1.7 Potassium Chloride 40 meq/ (Dextrose) 520 mls @ 130 mls/hr IV UD PRN PRN Reason: K+ = or < 3.5 Sodium Chloride (Sodium Chloride 0.9%) 1,000 mls @ 100 mls/hr IV .Q10H [facility] Last Admin: 01/01/21 06:04 Dose: 100 mls/hr Documented by: Acetaminophen (Ofirmev) 650 mg in 65 mls @ 130 mls/hr IV Q6HP PRN; Protocol PRN Reason: Per Pain Protocol/Fever > 101 Sodium Bicarbonate 150 meq/ (Dextrose) 1,000 mls @ 125 mls/hr IV Q8H [facility] Stop: 01/02/21 15:59 Insulin Glargine (Insulin Glargine, Human 1 Unit/0.01 Ml) 10 unit SQ BID [facility] Last Admin: 01/01/21 10:41 Dose: 10 units Documented by: Insulin Human Lispro (Insulin Lispro 1 Unit/0.01 Ml Unit) 0 unit SQ ACHS [facility]; Protocol Last Admin: 01/01/21 12:24 Dose: 2 units Documented by: Iron Carb/Multivit/[place]/Folic Acid (Multivit,Ther Iron,Ca,Fa & Min 1 Tablet) 1 tab PO DAILY [facility] Last Admin: 01/01/21 10:43 Dose: Not Given Documented by: Levothyroxine Sodium (Levothyroxine 125 Mcg Tablet) 250 mcg PO QAMAC [facility] Last Admin: 01/01/21 08:25 Dose: 250 mcg Documented by: Magnesium Oxide (Magnesium Oxide 400 Mg Tablet) 400 mg PO BID [facility] Last Admin: 01/01/21 10:44 Dose: 400 mg Documented by: Melatonin (Melatonin 3 Mg Tablet) 3 mg PO HSP PRN PRN Reason: Insomnia Metoprolol Succinate (Metoprolol Succinate 50 Mg Tab.Xl.24h) 50 mg PO DAILY [facility] Last Admin: 01/01/21 10:44 Dose: 50 mg Documented by: Metoprolol Tartrate (Metoprolol Tartrate 5 Mg/5 Ml Vial) 5 mg IV Q5M PRN PRN Reason: Heart Rate > 140 bpm Octreotide Acetate (Octreotide Acetate 50 Mcg/Ml Ampul) 50 mcg SQ TID [facility] Last Admin: 01/01/21 14:45 Dose: 50 mcg Documented by: Ondansetron HCl (Ondansetron 4 Mg Odt Tablet) 4 mg SL Q4HP PRN PRN Reason: Nausea Last Admin: 12/30/20 22:39 Dose: 4 mg Documented by: Ondansetron HCl (Ondansetron 4 Mg/2 Ml Vial) 4 mg IV Q4-6HP PRN; Protocol PRN Reason: Nausea And Vomiting Last Admin: 01/01/21 08:35 Dose: 4 mg Documented by: Polyethylene Glycol (Polyethylene Glycol 3350 17 Gm Packet) 17 gm PO DAILYP PRN PRN Reason: Constipation Potassium Chloride (Potassium Chloride 20 Meq Packet) 40 meq PO DAILYP PRN PRN Reason: K+ < 3.5 Prednisone (Prednisone 20 Mg Tablet) 20 mg PO [facility] Last Admin: 01/01/21 08:26 Dose: 20 mg Documented by: Promethazine HCl (Promethazine 25 Mg Tablet) 25 mg PO Q6HP PRN PRN Reason: Nausea Last Admin: 01/01/21 02:53 Dose: 25 mg Documented by: Pyridostigmine [place] (Pyridostigmine [place] 10 Mg/2 Ml Ampul) 10 mg IM Q6H [facility] Last Admin: 01/01/21 13:10 Dose: 10 mg Documented by: Sodium Chloride (0.9 % Sodium Chloride 10 Ml Syringe) 10 ml IV Q12 [facility] Last Admin: 01/01/21 10:46 Dose: Not Given Documented by: Sodium Chloride (0.9 % Sodium Chloride 10 Ml Syringe) 10 ml IV Q8 [facility] Last Admin: 01/01/21 13:13 Dose: Not Given Documented by: Thiamine HCl (Thiamine 100 Mg Tablet) 100 mg PO DAILY [facility] Last Admin: 01/01/21 10:43 Dose: Not Given Documented by: Vancomycin HCl (Vancomycin Per Pharmacy) 1 order IV UD [facility]; Protocol A/P Narrative A/P Narrative: A: *Nausea/vomiting/abdominal pain: Suspicious for bowel obstruction or ongoing ch ronic abdominal issues *History of recurrent SBO follows up with Dr. Currie surgery. *Mixed gap acidosis: excessive bicarbonate loss from ostomy *Hyponatremia: *Increased ostomy output: -Improved post addition of cholestyramine/lower pyridostigmine per surgery *Hypercalcemia: 18 on presentation, now down to 9.2 post bisphosphonate/crystalloids *Hyperkalemia: resolved *Acute kidney injury: resolved *Severe sepsis with evidence of endorgan dysfunction: Clinically resolved *Coag negative staph bacteremia: surveillance cultures negative so far/echocardiogram no evidence of valvular vegetation -ID recommends 2 weeks vancomycin as a port salvage treatment. 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 *Morbid obesity *HTN: on metoprolol Plan: -Surgery managing abdominal symptoms -Nephrology consult for mixed gap acidosis/low bicarb -IVF per nephro, on bicarb gtt -Continue vancomycin until 01/12/2021 for 2-wk course from neg BC, f/u with ID outpt -Continue anticoagulation for PE -home calcium supp held -cont home prednisone/BB -continue basal prandial insulin/CC diet, metformin held -PT as tolerated -Discharge planning likely SNF once clinically stable -ppx: apixaban Time Spent With Patient Time: Total time spent is greater than 50% in coordination of care (as documented) at patient's floor/unit and/or counseling patient:
[2021-01-01] MEDS: SODIUM BICARBONATE VIAL 150 MEQ in DEXTROSE 5% IN WATER 850 ML IV SCH (17:44)
[2021-01-01 18:22] LABS: Appearance,Urine HAZY (Clear); Bilirubin,Urine Negative (Negative); Color,Urine STRAW; Culture Indicated,Urine No; Glucose,Urine (UA) 50 mg/dL (Negative); Ketones,Urine Negative (Negative); Leukocyte Esterase,Urine Negative /ug (Negative); Nitrate,Urine Negative (Negative); Protein,Urine Negative (Negative); Urine Blood Negative (Negative); Urobilinogen,Urine Negative
[2021-01-01 18:31] LABS: Potassium,Urine Random 27.9 mmol/L
[2021-01-02] MEDS: PYRIDOSTIGMINE BROMIDE 10 MG/2 ML AMPUL IM SCH ×4 (01:05→19:49)
[2021-01-02] MEDS: SODIUM BICARBONATE VIAL 150 MEQ in DEXTROSE 5% IN WATER 850 ML IV SCH ×2 (01:05→10:29)
[2021-01-02] MEDS: 0.9 % SODIUM CHLORIDE 10 ML SYRINGE IV SCH ×3 (05:06→13:03)
[2021-01-02 06:36] LABS: Hematocrit 34.5 % (36.0-48.0); Mean Cell Volume 91.5 fL (80.0-100.0); Mean Corpuscular HGB Conc 31.9 g/dL (31.0-36.0); Mean Platelet Volume 9.4 fL (7.4-10.4); Platelet Count 290 K/mcL (140-440); RBC 3.77 M/mcL (4.00-5.20); Red Cell Distribution Width 13.8 % (11.5-14.5); WBC 11.6 K/mcL (4.5-11.0)
[2021-01-02 06:57] LABS: Vancomycin,Random 13.9 ug/mL
[2021-01-02 07:01] LABS: ALT/SGPT 15 U/L (<40); AST/SGOT 13 U/L (<32); Albumin 2.8 gm/dL (3.2-5.2); Albumin/Globulin Ratio 1.2 (1.0-2.3); Alkaline Phosphatase 79 U/L (39-117); Bilirubin,Direct < 0.2 mg/dL (0-0.3); Bilirubin,Total 0.2 mg/dL (0.1-1.0); Blood Urea Nitrogen 21 mg/dL (6-20); Calcium 6.7 mg/dL (8.6-10.4); Carbon Dioxide 23 mmol/L (22-30); Chloride 100 mmol/L (96-108); Globulin 2.4 gm/dL (2.2-3.7); Glomerular Filtration Rate 81; Glucose 96 mg/dL (70-105); Lactate Dehydrogenase 198 U/L (135-225); Phosphorous 1.9 mg/dL (2.5-4.5); Triglycerides 609 mg/dL (<150); Uric Acid 5.7 mg/dL (2.5-8.0)
[2021-01-02] MEDS: INSULIN LISPRO 1 UNIT/0.01 ML UNIT SQ SCH ×4 (07:08→21:28)
[2021-01-02] MEDS: LEVOTHYROXINE 125 MCG TABLET PO SCH (07:09)
--- NOTE | 2021-01-02 07:43 | Internal Med Progress Note ---
SUBJECTIVE Subjective Patient information: Note initiated : 01/02/21 at 7:39 am Service Date, if different from initiated Date: [] Patient: Dayanna Guo a 60 y/o F admitted on 12/27/20 for weakness, cool clammy. Chief Complaint: [] Principal diagnosis: Chronic intestinal pseudoobstruction; high output ileostomy Interval history: Interval history: Ms. Guo is a 60 year old F with a history of recurrent bowel obstruction and was [facility]. Patient was doing well however over the last 3 days nursing staff has noticed increasing weakness/cough/fatigue malaise and inability to function. She in all probability was exposed to sick contacts. She denies headache or ph otophobia endorses to weakness myalgia and joint aches. She denies increased ostomy output or dysuria, abdominal pain or distention. EMS was called after facility staff noticed her increasing lethargic and confused. Initial work-up was consistent with severe sepsis elevated white count/lactic acidosis without a clear source. Cultures were drawn patient was started on antibiotic coverage. Calcium at 18 with severe volume depletion. Patient was started on crystalloids. Notably she was discharged on diuretics after recent hospitalization. subsequently nephrology was consulted in light of hy percalcemia/potassium 5.9/acute kidney injury with a creatinine of 1.4. Per nephrology patient was started on crystalloid at 200 cc/bicarbonate drip/Kayexalate. Subsequently hospitalist service was consulted for admission At the time of evaluation patient is very lethargic drowsy and unable to open her eyes. She is barely able to verbalize and provide history. Most of history was obtained from review of medical records and ER physician. No family members present. 12/28-patient doing well. Calcium down to 12 from 18. More lucid alert. Bisphosphonates given today. Fever defervesced. White count downtrending from 19 point 8K to 12.4. No obvious source of infection. Case discussed with nephrology. Potassium down to 4.2 post Kayexalate. Ostomy output stable. No evidence of bowel obstruction. Continue existing treatment/crystalloids and supportive management with diet and therapies. Possible transition to SNF in 48 hours. [id number] cocci in blood culture. Serratia on urine culture. Antibiotic escalated to cefepime, continue vancomycin, surveillance cultures, e chocardiogram to rule out endocarditis. However clinically improving and improved electrolytes, creatinine 0.8, potassium 3.8, calcium down to 9.5 status post bisphosphonate. No overnight fever chills. Continue close monitoring. 12/30-patient complains of excessive ostomy output throughout the night. Could not sleep. However electrolytes improved with calcium 9.7. GPC bacteremia ID consulted. ID recommends discontinuing cefepime as unlikely Serratia as a cause of sepsis. Continue vancomycin. Echocardiogram EF 70%. No valvular vegetations noted on echocardiogram. Surgery consulted. Two-view abdominal imaging reveals nonspecific bowel gas pattern. Continue anticoagulation for PEs 12/31-patient doing better. Improved ostomy output on cholestyramine/lower dose of pyridostigmine. ID recommends continuation of vancomycin for 2 weeks as a port salvage treatment for bacteremia. Blood cultures coag negative staph. White count 11.2, phosphorus improved to 2.7 from 1.7. Tolerating diet. Ongoing therapies. 01/01-patient not feeling well this morning, persistent nausea/abdominal pain and lethargic. On crystalloids. Bicarb down to 10. Nephrology consulted. Also surgery on board for possible bowel obstruction. Continuing vancomycin for enterococcal bacteremia per ID. Worsening white count at 14.1, 01/02 Patient had low blood sugar this morning. Stomach achiness. Acidosis improved Review of Systems: denies headache/fever/chills/nausea/vomiting/chest pain/cough/dyspnea/diarrhea. Otherwise see above. Constitutional Vitals: Vital Signs Temp Pulse Resp BP Pulse Ox 97.3 F 78 16 124/79 100 01/02/21 03:35 01/02/21 03:35 01/02/21 03:35 01/02/21 03:35 01/02/21 03:35 Period Temp Pulse Resp BP Sys/Archuleta Pulse Ox Last 24 Hr 97.1 F-98.2 F 78-117 16-20 96-135/65-85 93-100 Intake and Output 01/01/21 01/02/21 01/02/21 21:59 05:59 13:59 Intake Total 1720 1309 Output Total 3970 1450 Balance -255 -141 Weight 100.153 kg Intake & Output: Intake & Output 01/01/21 01/02/21 01/02/21 21:59 05:59 13:59 Intake Total 1720 1309 Output Total 3434 1450 Balance -255 -141 Weight 100.153 kg Intake: IV 800 919 Sodium Chloride 0.9% 1,000 ml @ 800 100 mls/hr IV .Q10H [facility]ENA Rx#: [id number] Sodium Bicarbonate Vial 150 Meq 919 In Dextrose 5% in Water 850 ml @ 125 mls/hr IV Q8H [facility]ENA Rx#: [id number] Oral 920 390 Output: Void Amount 1075 525 Stool 900 925 Other: Urine Appearance Clear Clear Urine Color Bright Yellow Bright Yellow Stool Color Green Green Stool Consistency Watery Watery Exam: General: Alert, Awake, No acute Distress, obese Eyes/N/T: EOMI, Head/Neck: neck supple, CV: RRR, No murmurs, Pulm: Clear b/l, no wheezing/rhonchi/rales Abd: soft, nontender, +BS x4, ostomy Ext: no clubbing/cyanosis, mild b/l LE mild edema Neuro: Alert, no focal deficits, moves all extremities, Skin: warm/dry OBJ DATA Labs CBC & Chem 7: 01/02/21 05:18 01/02/21 05:18 Labs: Abnormal Lab Results 01/02/21 01/02/21 01/01/21 05:18 05:18 17:45 WBC 11.6 H RBC 3.77 L Hgb 11.0 L Hct 34.5 L MCHC [place] # (Auto) Absolute Neutrophils Sodium 132 L Potassium 3.0 L Carbon Dioxide BUN 21 H Glucose Calcium 6.7 L Phosphorus 1.9 L GGT Lactate Dehydrogenase Total Protein 5.2 L Albumin 2.8 L Triglycerides 609 H Urine Appearance Hazy A Urine Glucose (UA) 50 A Ur Random Chloride Vancomycin Trough 01/01/21 01/01/21 01/01/21 17:45 08:05 08:05 WBC RBC Hgb Hct MCHC [place] # (Auto) Absolute Neutrophils Sodium Potassium Carbon Dioxide BUN Glucose Calcium Phosphorus GGT Lactate Dehydrogenase 240 H Total Protein Albumin Triglycerides Urine Appearance Urine Glucose (UA) Ur Random Chloride 69 L Vancomycin Trough 20.5 H* 01/01/21 01/01/21 12/31/20 06:11 06:11 06:01 WBC 14.1 H RBC Hgb Hct MCHC 30.1 L [place] # (Auto) 1.23 H Absolute Neutrophils 8.93 H Sodium 128 L 129 L Potassium Carbon Dioxide 10 L* 14 L BUN 28 H 30 H Glucose 152 H 143 H Calcium 8.5 L Phosphorus GGT 37 H Lactate Dehydrogenase 280 H Total Protein Albumin Triglycerides 793 H 699 H Urine Appearance Urine Glucose (UA) Ur Random Chloride Vancomycin Trough 12/31/20 12/30/20 06:01 04:55 WBC 11.2 H RBC Hgb Hct MCHC 29.9 L [place] # (Auto) 1.25 H Absolute Neutrophils Sodium Potassium Carbon Dioxide 18 L BUN 27 H Glucose 135 H Calcium Phosphorus 1.7 L GGT Lactate Dehydrogenase Total Protein 5.8 L Albumin Triglycerides 619 H Urine Appearance Urine Glucose (UA) Ur Random Chloride Vancomycin Trough Meds: Medications Acetaminophen (Acetaminophen 325 Mg Tablet) 650 mg PO Q4-6HP PRN; Protocol PRN Reason: Per Pain Protocol/Fever > 101 Hydrocodone Bitart/Acetaminophen (Hydrocodone/Apap 5/325mg Tablet) 0 tab PO Q8HP PRN; Protocol PRN Reason: Per Pain Protocol Last Admin: 01/01/21 21:08 Dose: 1 tab Documented by: Apixaban (Apixaban 5 Mg Tablet) 5 mg PO BID [facility] Last Admin: 01/01/21 21:08 Dose: 5 mg Documented by: Cyclobenzaprine HCl (Cyclobenzaprine 10 Mg Tablet) 10 mg PO BIDP PRN PRN Reason: Spasms Last Admin: 12/30/20 17:12 Dose: 10 mg Documented by: Dextrose (Dextrose 50% 50 Ml Vial) 0 ml IV UD PRN PRN Reason: Hypoglycemia Diagnostic Test (Pha) (Accu-Chek 1 Each Strip) 1 each FS ACHS [facility] Last Admin: 01/02/21 07:08 Dose: 1 each Documented by: Duloxetine HCl (Duloxetine 30 Mg Capsule) 30 mg PO BID [facility] Last Admin: 01/01/21 21:08 Dose: 30 mg Documented by: Furosemide (Furosemide 20 Mg Tablet) 20 mg PO QDAY [facility] Last Admin: 01/01/21 10:44 Dose: 20 mg Documented by: Gabapentin (Gabapentin 300 Mg Capsule) 300 mg PO TID [facility] Last Admin: 01/01/21 21:08 Dose: 300 mg Documented by: Glucose (Dextrose 31 Gm Oral.Susp) 15 gm PO PRN PRN PRN Reason: Hypoglycemia Heparin Sodium (Porcine) (Heparin Flush 10 Units/Ml 5 Ml Syringe) 5 ml IV Q12 [facility] Last Admin: 01/01/21 21:10 Dose: Not Given Documented by: Hydralazine HCl (Hydralazine 20 Mg/Ml Vial) 10 mg IV Q4-6HP PRN PRN Reason: Hypertension Magnesium Sulfate (Magnesium Sulfate) 2 gm in 50 mls @ 50 mls/hr IV UD PRN PRN Reason: MG = or < 1.7 Potassium Chloride 40 meq/ (Dextrose) 520 mls @ 130 mls/hr IV UD PRN PRN Reason: K+ = or < 3.5 Acetaminophen (Ofirmev) 650 mg in 65 mls @ 130 mls/hr IV Q6HP PRN; Protocol PRN Reason: Per Pain Protocol/Fever > 101 Sodium Bicarbonate 150 meq/ (Dextrose) 1,000 mls @ 125 mls/hr IV Q8H [facility] Stop: 01/02/21 15:59 Last Admin: 01/02/21 01:05 Dose: 125 mls/hr Documented by: Insulin Glargine (Insulin Glargine, Human 1 Unit/0.01 Ml) 10 unit SQ BID [facility] Last Admin: 01/01/21 21:24 Dose: 10 units Documented by: Insulin Human Lispro (Insulin Lispro 1 Unit/0.01 Ml Unit) 0 unit SQ ACHS [facility]; Protocol Last Admin: 01/02/21 07:08 Dose: Not Given Documented by: Iron Carb/Multivit/[place]/Folic Acid (Multivit,Ther Iron,Ca,Fa & Min 1 Tablet) 1 tab PO DAILY [facility] Last Admin: 01/01/21 10:43 Dose: Not Given Documented by: Levothyroxine Sodium (Levothyroxine 125 Mcg Tablet) 250 mcg PO QAMAC [facility] Last Admin: 01/02/21 07:09 Dose: 250 mcg Documented by: Magnesium Oxide (Magnesium Oxide 400 Mg Tablet) 400 mg PO BID [facility] Last Admin: 01/01/21 21:08 Dose: 400 mg Documented by: Melatonin (Melatonin 3 Mg Tablet) 3 mg PO HSP PRN PRN Reason: Insomnia Metoprolol Succinate (Metoprolol Succinate 50 Mg Tab.Xl.24h) 50 mg PO DAILY [facility] Last Admin: 01/01/21 10:44 Dose: 50 mg Documented by: Metoprolol Tartrate (Metoprolol Tartrate 5 Mg/5 Ml Vial) 5 mg IV Q5M PRN PRN Reason: Heart Rate > 140 bpm Octreotide Acetate (Octreotide Acetate 50 Mcg/Ml Ampul) 50 mcg SQ TID [facility] Last Admin: 01/01/21 21:57 Dose: 50 mcg Documented by: Ondansetron HCl (Ondansetron 4 Mg Odt Tablet) 4 mg SL Q4HP PRN PRN Reason: Nausea Last Admin: 12/30/20 22:39 Dose: 4 mg Documented by: Ondansetron HCl (Ondansetron 4 Mg/2 Ml Vial) 4 mg IV Q4-6HP PRN; Protocol PRN Reason: Nausea And Vomiting Last Admin: 01/01/21 08:35 Dose: 4 mg Documented by: Polyethylene Glycol (Polyethylene Glycol 3350 17 Gm Packet) 17 gm PO DAILYP PRN PRN Reason: Constipation Potassium Chloride (Potassium Chloride 20 Meq Packet) 40 meq PO DAILYP PRN PRN Reason: K+ < 3.5 Prednisone (Prednisone 20 Mg Tablet) 20 mg PO [facility] Last Admin: 01/01/21 08:26 Dose: 20 mg Documented by: Promethazine HCl (Promethazine 25 Mg Tablet) 25 mg PO Q6HP PRN PRN Reason: Nausea Last Admin: 01/01/21 02:53 Dose: 25 mg Documented by: Pyridostigmine [place] (Pyridostigmine [place] 10 Mg/2 Ml Ampul) 10 mg IM Q6H [facility] Last Admin: 01/02/21 07:09 Dose: 10 mg Documented by: Sodium Chloride (0.9 % Sodium Chloride 10 Ml Syringe) 10 ml IV Q12 [facility] Last Admin: 01/01/21 21:10 Dose: Not Given Documented by: Sodium Chloride (0.9 % Sodium Chloride 10 Ml Syringe) 10 ml IV Q8 [facility] Last Admin: 01/02/21 05:06 Dose: Not Given Documented by: Thiamine HCl (Thiamine 100 Mg Tablet) 100 mg PO DAILY [facility] Last Admin: 01/01/21 10:43 Dose: Not Given Documented by: Vancomycin HCl (Vancomycin Per Pharmacy) 1 order IV UD [facility]; Protocol A/P Narrative A/P Narrative: A: *Nausea/vomiting/abdominal pain: Suspicious for bowel obstruction or ongoing chronic abdominal issues -improving *History of recurrent SBO follows up with Dr. Currie surgery. *Mixed gap acidosis: excessive bicarbonate loss from ostomy. -improved *Hyponatremia: improved *High-ostomy output: -Improved post addition of cholestyramine/lower pyridostigmine per surgery *Hypercalcemia: 18 on presentation, resolved after bisphosphonate/crystalloids *Hyperkalemia: resolved *Acute kidney injury: resolved *Severe sepsis with evidence of endorgan dysfunction: Clinically resolved *Coag negative staph bacteremia: surveillance cultures negative so far/echocardiogram no evidence of valvular vegetation -ID recommends 2 weeks vancomycin as a port salvage treatment. 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 *Morbid obesity *HTN: on metoprolol Plan: -Surgery managing abdominal symptoms -Nephrology consult for mixed gap acidosis/low bicarb -IVF's/electrolytes per nephro, on bicarb gtt -Continue vancomycin until 01/12/2021 for 2-wk course from [facility], f/u with ID outpt -Continue anticoagulation for PE -home calcium supp held -cont home prednisone/BB -continue basal (decreased) and SSI/CC diet, metformin held -PT as tolerated -Discharge planning likely SNF once clinically stable -ppx: apixaban Time Spent With Patient Time: Total time spent is greater than 50% in coordination of care (as documented) at patient's floor/unit and/or counseling patient:
--- NOTE | 2021-01-02 08:50 | Nephrology Progress Note ---
SUBJECTIVE Subjective Patient information: Note initiated : 01/02/21 at 8:45 am Service Date, if different from initiated Date: [] Patient: Dayanna Guo 60 y/o F admitted on 12/27/20 for weakness, cool clammy. Chief Complaint: [weakness] Principal diagnosis: Chronic intestinal pseudoobstruction; high output ileostomy Interval history: Patient with a complicated medical history recently readmitted to the hospital with continued small bowel dysfunction/obstructive function with air-fluid levels and dilated loops of bowel on KUB. More likely could be related to myasthenia gravis and narcotics as opposed to mechanical obstruction or adhesions though she has had these in the past as well. Due to bicarbonate rich ileostomy output she developed a non-anion gap metabolic acidosis with a bicarbonate of 10 which is being treated by subcu octreotide as well as IV bicarbonate therapy. This morning her bicarbonate drip will be discontinued as her serum bicarbonate is now approaching normal. I&O's (-)1500 Vital Signs Temp Pulse Resp BP BP BP Pulse Ox 01/02/21 07:56 36.8 C 75 16 105/60 94 01/02/21 03:35 36.3 C 78 16 124/79 100 01/02/21 00:00 36.3 C 90 20 120/77 96 01/01/21 21:00 126/83 01/01/21 19:28 36.8 C 99 H 18 96/65 96 01/01/21 16:00 36.3 C 100 H 16 104/69 94 01/01/21 11:38 36.2 C 111 H 18 122/85 99 Intake and Output 01/01/21 01/02/21 01/02/21 21:59 05:59 13:59 Intake Total 1720 1309 Output Total 1975 1450 Balance -255 -141 Intake: IV 800 919 Sodium Chloride 0.9% 1,000 ml @ 800 100 mls/hr IV .Q10H [facility] Rx#: [id number] Sodium Bicarbonate Vial 150 Meq 919 In Dextrose 5% in Water 850 ml @ 125 mls/hr IV Q8H [facility] Rx#: [id number] Oral 920 390 Output: Void Amount 1075 525 Stool 900 925 Other: Urine Appearance Clear Clear Urine Color Bright Yellow Bright Yellow Stool Color Green Green Stool Consistency Watery Watery Weight 100.153 kg Laboratory Tests 01/02/21 05:18 Sodium 132 L Potassium 3.0 L Chloride 100 Carbon Dioxide 23 Anion Gap 9.0 BUN 21 H Creatinine 0.8 GFR Calculation 81 Glucose 96 Uric Acid 5.7 Calcium 6.7 L Phosphorus 1.9 L Magnesium 1.6 Sitting in bed chatting on phone. Constitutional Vitals: Vital Signs Temp Pulse Resp BP Pulse Ox 36.8 C 75 16 105/60 94 01/02/21 07:56 01/02/21 07:56 01/02/21 07:56 01/02/21 07:56 01/02/21 07:56 Period Temp Pulse Resp BP Sys/Archuleta Pulse Ox Last 24 Hr 36.2 C-36.8 C 75-111 16-20 96-126/60-85 94-100 Intake and Output 01/01/21 01/02/21 01/02/21 21:59 05:59 13:59 Intake Total 1720 1309 Output Total 1974 1450 Balance -255 -141 Weight 100.153 kg Intake & Output: Intake & Output 01/01/21 01/02/21 01/02/21 21:59 05:59 13:59 Intake Total 1720 1309 Output Total 1974 1450 Balance -255 -141 Weight 100.153 kg Intake: IV 800 919 Sodium Chloride 0.9% 1,000 ml @ 800 100 mls/hr IV .Q10H [facility] Rx#: [id number] Sodium Bicarbonate Vial 150 Meq 919 In Dextrose 5% in Water 850 ml @ 125 mls/hr IV Q8H [facility] Rx#: [id number] Oral 920 390 Output: Void Amount 1075 525 Stool 900 925 Other: Urine Appearance Clear Clear Urine Color Bright Yellow Bright Yellow Stool Color Green Green Stool Consistency Watery Watery General appearance: no acute distress and obese Exam: Nontoxic-appearing Head Head exam: Present normal inspection Eye Eye exam: Present PERRL; Absent scleral icterus Pupils: Present PERRL ENT ENT exam: Present mucous membranes dry Neck Neck exam: Present full ROM and normal inspection; Absent meningismus Respiratory Respiratory exam: Present normal respiratory exam and CTAB Cardiovascular Cardiovascular exam: Present normal rate and rhythm, RRR, +S1 and +S2; Absent JVD GI/Abdominal GI/Abdominal exam: Present distended Additional comments: Tympanitic bowel sounds Extremities Exam Extremities exam: Present normal inspection; Absent joint swelling Neurological Exam Neurological exam: Present alert, CN II-XII intact and oriented X3 Psychiatric Psychiatric exam: Present normal mood Skin Skin exam: Present dry and warm; Absent mottled, petechiae and rash Additional findings Additional findings: No peripheral edema Brown liquidy ileostomy output A/P Assessment and plan (1) Metabolic acidosis with normal anion gap and failure of bicarbonate regeneration: Status: Acute (2) Hyponatremia with decreased serum osmolality: Status: Acute (3) Hypocalcemia: Status: Resolved (4) Hypokalemia: Status: Acute Narrative A/P Narrative: 1. While awaiting rest of testing and octreotide to decrease GI bicarb losses, I recommended a NaBicarb drip which we can now stop. GI Bicarb losses are the cause based on maximally acidified urine 2. Serial BMP and daily mag and phos 3. Check TSH was acceptable or actually supressed, cortisol in AM 4. Reducing GI fluid and bicarb losses will be fatima. 5. replace K, PO4 losses Time Spent With Patient Time: Total time spent is greater than 50% in coordination of care (as documented) at patient's floor/unit and/or counseling patient:
[2021-01-02] MEDS: FUROSEMIDE 20 MG TABLET PO SCH (09:01)
[2021-01-02] MEDS: APIXABAN 5 MG TABLET PO SCH (09:01)
[2021-01-02] MEDS: MULTIVIT,THER IRON,CA,FA & MIN 1 TABLET PO SCH (09:02)
[2021-01-02] MEDS: METOPROLOL SUCCINATE 50 MG TAB.XL.24H PO SCH ×2 (09:02→10:30)
[2021-01-02] MEDS: GABAPENTIN 300 MG CAPSULE PO SCH ×2 (09:02→15:45)
[2021-01-02] MEDS: THIAMINE 100 MG TABLET PO SCH (09:02)
[2021-01-02] MEDS: predniSONE 20 MG TABLET PO SCH (09:02)
[2021-01-02] MEDS: HYDROcodone/APAP 5/325MG TABLET PO PRN ×2 (09:02→17:30)
--- NOTE | 2021-01-02 09:02 | XRay Report ---
CLINICAL INFORMATION: FOLLOW -UP OF SMALL BOWEL OBSTRUCTION COMPARISON: 01/01/2021 FINDINGS: The stomach and small bowel have decreased caliber since yesterday's examination and are now only mildly dilated with scattered air-fluid levels. No definite free air, soft tissue mass or pathologic calcification. IMPRESSION: Improving ileus versus partial distal small bowel obstruction pattern Interpreted and Authenticated by: All Lundberg 01/02/21
[2021-01-02] MEDS: MAGNESIUM OXIDE 400 MG TABLET PO SCH (09:03)
[2021-01-02] MEDS: DULoxetine 30 MG CAPSULE PO SCH (09:03)
[2021-01-02] MEDS: 0.9 % SODIUM CHLORIDE 1,000 ML IV SCH ×3 (09:56→19:49)
[2021-01-02] MEDS ORDERED: POTASSIUM PHOSPHATE 20 MEQ in DEXTROSE 5% IN WATER 250 ML IV ONE (10:00)
[2021-01-02] MEDS ORDERED: VANCOMYCIN 1,500 MG in 0.9 % SODIUM CHLORIDE 500 ML IV ONE (10:00)
[2021-01-02] MEDS: OCTREOTIDE ACETATE 50 MCG/ML AMPUL SQ SCH ×2 (11:18→15:46)
[2021-01-02] MEDS: INSULIN GLARGINE, HUMAN 1 UNIT/0.01 ML SQ SCH (11:18)
[2021-01-02 11:22] LABS: Eosinophils % (Manual) 2 % (0-7); Lymphocytes % 32 % (15-49); Monocytes % (Manual) 8 % (1-12); Platelet Estimate NORMAL (Normal); RBC Morphology NORMAL (Normal); Segmented Neutrophils % 58 % (38-78)
--- NOTE | 2021-01-02 12:00 | General Surgery Progress Note ---
SUBJECTIVE Subjective Patient information: Note initiated : 01/02/21 at 12:00 pm Service Date, if different from initiated Date: [] Patient: Dayanna Guo 60 y/o F admitted on 12/27/20 for weakness, cool clammy. Chief Complaint: [] Principal diagnosis: Chronic intestinal pseudoobstruction; high output ileostomy Interval history: Patient feels much better. She had decrease in output through her stoma. Her pain is well controlled. Abdominal distention is improved. White blood count 11.6, hemoglobin 11, hematocrit 34.5, sodium 132, potassium 3, BUN 21, creatinine 0.8, calcium 6.7, phosphorus 1.9. Constitutional Vitals: Vital Signs Temp Pulse Resp BP Pulse Ox 98.3 F 75 16 105/60 94 01/02/21 07:56 01/02/21 07:56 01/02/21 07:56 01/02/21 07:56 01/02/21 07:56 Period Temp Pulse Resp BP Sys/Archuleta Pulse Ox Last 24 Hr 97.3 F-98.3 F 75-100 16-20 96-126/60-83 94-100 Intake and Output 01/01/21 01/02/21 01/02/21 21:59 05:59 13:59 Intake Total 1720 1309 1720 Output Total 1974 1450 1050 Balance -255 -141 670 Weight 220 lb 12.8 oz Intake & Output: Intake & Output 01/01/21 01/02/21 01/02/21 21:59 05:59 13:59 Intake Total 1720 1309 1720 Output Total 1974 1450 1050 Balance -255 -141 670 Weight 220 lb 12.8 oz Intake: IV 195 205 3104 Sodium Chloride 0.9% 1,000 ml @ 800 100 mls/hr IV .Q10H [facility] Rx#: [id number] Sodium Bicarbonate Vial 150 Meq 919 1000 In Dextrose 5% in Water 850 ml @ 125 mls/hr IV Q8H [facility] Rx#: [id number] Oral 920 390 720 Output: Void Amount 1075 525 450 Stool 900 925 600 Other: Meal Breakfast Percent of Meal Consumed 75% Feeding Ability Independent Urine Appearance Clear Clear Clear Urine Color Bright Yellow Bright Yellow Pale Stool Color Green Green Green Stool Consistency Watery Watery Liquid Watery ENT ENT exam: Present mucous membranes moist, normal exam and normal oropharynx Neck Neck exam: Present full ROM; Absent lymphadenopathy and tenderness Respiratory Respiratory exam: Present normal respiratory exam and CTAB Cardiovascular Cardiovascular exam: Present normal rate and rhythm, RRR, +S1 and +S2; Absent JVD GI/Abdominal GI/Abdominal exam: Present soft, distended (Distention is significantly improved than on yesterday) and hyperactive bowel sounds; Absent organomegaly Additional comments: Stoma is patent and functioning normally Extremities Exam Extremities exam: Present normal inspection; Absent joint swelling Back Exam Back exam: Present full ROM and normal inspection Neurological Exam Neurological exam: Present alert, CN II-XII intact and oriented X3 Psychiatric Psychiatric exam: Present normal affect and normal mood Skin Skin exam: Present normal color A/P Assessment and plan (1) Primary chronic pseudo-obstruction of small intestine: Status: Acute (2) Nausea and vomiting: Status: Acute Qualifiers: Vomiting Intractability: non-intractable Vomiting type: unspecified Qualified Code(s): R11.2 - Nausea with vomiting, unspecified (3) Myasthenia gravis: Status: Chronic Comment: Prednisone dependent at 20 mg daily. (4) Polyglandular autoimmune syndrome: Status: Chronic (5) Ileostomy status: Status: Acute Narrative A/P Narrative: Patient is clinically improved from yesterday. She will be continued on the octreotide and increased doses of Regonol. She should equilibrate and 24 to 48 hours. Follow-up abdominal x-rays will be performed in the morning. Time Spent With Patient Time: Total time spent is greater than 50% in coordination of care (as documented) at patient's floor/unit and/or counseling patient:
[2021-01-02] MEDS: METOPROLOL SUCCINATE 25 MG TAB.XL.24H PO SCH (13:39)
[2021-01-02] MEDS: MAGNESIUM SULFATE 2 GM/50 ML BAG IV PRN (13:50)
[2021-01-02] MEDS: ONDANSETRON 4 MG/2 ML VIAL IV PRN (21:59)
[2021-01-03] MEDS: APIXABAN 5 MG TABLET PO SCH ×4 (00:51→22:20)
[2021-01-03] MEDS: DULoxetine 30 MG CAPSULE PO SCH ×4 (00:51→22:20)
[2021-01-03] MEDS: MAGNESIUM OXIDE 400 MG TABLET PO SCH ×4 (00:52→22:20)
[2021-01-03] MEDS: INSULIN GLARGINE, HUMAN 1 UNIT/0.01 ML SQ SCH ×3 (00:52→21:44)
[2021-01-03] MEDS: OCTREOTIDE ACETATE 50 MCG/ML AMPUL SQ SCH ×4 (00:53→21:31)
[2021-01-03] MEDS: GABAPENTIN 300 MG CAPSULE PO SCH ×5 (00:53→22:20)
[2021-01-03] MEDS: 0.9 % SODIUM CHLORIDE 10 ML SYRINGE IV SCH ×7 (00:53→21:35)
[2021-01-03] MEDS: PYRIDOSTIGMINE BROMIDE 10 MG/2 ML AMPUL IM SCH ×4 (00:54→18:58)
[2021-01-03] MEDS: PROMETHAZINE 25 MG TABLET PO PRN (01:24)
[2021-01-03] MEDS: 0.9 % SODIUM CHLORIDE 1,000 ML IV SCH ×3 (03:30→17:36)
--- NOTE | 2021-01-03 06:47 | XRay Report ---
CLINICAL INFORMATION: FOLLOW -UP OF SMALL BOWEL OBSTRUCTION COMPARISON: None. FINDINGS: The stomach and small bowel remain mildly dilated with scattered air-fluid levels. No free air. IMPRESSION: Mild dilatation the stomach and small bowel air-fluid levels - slight improvement. Findings compatible with atypical ileus versus distal small bowel obstruction Interpreted and Authenticated by: All Lundberg 01/03/21
[2021-01-03] MEDS: ONDANSETRON 4 MG/2 ML VIAL IV PRN ×2 (07:20→19:25)
[2021-01-03] MEDS: LEVOTHYROXINE 125 MCG TABLET PO SCH (07:24)
[2021-01-03 07:41] LABS: Vancomycin,Random 16.6 ug/mL
[2021-01-03] MEDS: HYDROcodone/APAP 5/325MG TABLET PO PRN ×2 (07:41→16:50)
[2021-01-03 08:16] LABS: Phosphorous 1.8 mg/dL (2.5-4.5)
[2021-01-03] MEDS: METOPROLOL SUCCINATE 25 MG TAB.XL.24H PO SCH (08:18)
[2021-01-03] MEDS: FUROSEMIDE 20 MG TABLET PO SCH (08:18)
[2021-01-03] MEDS: THIAMINE 100 MG TABLET PO SCH (08:19)
[2021-01-03] MEDS: predniSONE 20 MG TABLET PO SCH (08:19)
[2021-01-03] MEDS: MULTIVIT,THER IRON,CA,FA & MIN 1 TABLET PO SCH (08:19)
[2021-01-03 08:20] LABS: Blood Urea Nitrogen 17 mg/dL (6-20); Calcium 6.1 mg/dL (8.6-10.4); Carbon Dioxide 20 mmol/L (22-30); Chloride 102 mmol/L (96-108); Glomerular Filtration Rate 100; Glucose 135 mg/dL (70-105)
[2021-01-03] MEDS: INSULIN LISPRO 1 UNIT/0.01 ML UNIT SQ SCH ×4 (08:21→21:45)
[2021-01-03] MEDS ORDERED: POTASSIUM PHOSPHATE 20 MEQ in DEXTROSE 5% IN WATER 250 ML IV ONE (08:27)
[2021-01-03] MEDS ORDERED: CALCIUM GLUCONATE 4.65 MEQ in DEXTROSE 5% IN WATER 50 ML IV ONE (08:28)
--- NOTE | 2021-01-03 08:30 | Internal Med Progress Note ---
SUBJECTIVE Subjective Patient information: Note initiated : 01/03/21 at 8:24 am Service Date, if different from initiated Date: [] Patient: Dayanna Guo a 60 y/o F admitted on 12/27/20 for weakness, cool clammy. Chief Complaint: [] Principal diagnosis: Chronic intestinal pseudoobstruction; high output ileostomy Interval history: Interval history: Ms. Guo is a 60 year old F with a history of recurrent bowel obstruction and was recently discharged [facility] facility. Patient was doing well however over the last 3 days nursing staff has noticed increasing weakness/cough/fatigue malaise and inability to function. She in all probability was exposed to sick contacts. She denies headache or ph otophobia endorses to weakness myalgia and joint aches. She denies increased ostomy output or dysuria, abdominal pain or distention. EMS was called after facility staff noticed her increasing lethargic and confused. Initial work-up was consistent with severe sepsis elevated white count/lactic acidosis without a clear source. Cultures were drawn patient was started on antibiotic coverage. Calcium at 18 with severe volume depletion. Patient was started on crystalloids. Notably she was discharged on diuretics after recent hospitalization. subsequently nephrology was consulted in light of hy percalcemia/potassium 5.9/acute kidney injury with a creatinine of 1.4. Per nephrology patient was started on crystalloid at 200 cc/bicarbonate drip/Kayexalate. Subsequently hospitalist service was consulted for admission At the time of evaluation patient is very lethargic drowsy and unable to open her eyes. She is barely able to verbalize and provide history. Most of history was obtained from review of medical records and ER physician. No family members present. 12/28-patient doing well. Calcium down to 12 from 18. More lucid alert. Bisphosphonates given today. Fever defervesced. White count downtrending from 19 point 8K to 12.4. No obvious source of infection. Case discussed with nephrology. Potassium down to 4.2 post Kayexalate. Ostomy output stable. No evidence of bowel obstruction. Continue existing treatment/crystalloids and supportive management with diet and therapies. Possible transition to SNF in 48 hours. 12/[id number] cocci in blood culture. Serratia on urine culture. Antibiotic escalated to cefepime, continue vancomycin, surveillance cultures, e chocardiogram to rule out endocarditis. However clinically improving and improved electrolytes, creatinine 0.8, potassium 3.8, calcium down to 9.5 status post bisphosphonate. No overnight fever chills. Continue close monitoring. 12/30-patient complains of excessive ostomy output throughout the night. Could not sleep. However electrolytes improved with calcium 9.7. GPC bacteremia ID consulted. ID recommends discontinuing cefepime as unlikely Serratia as a cause of sepsis. Continue vancomycin. Echocardiogram EF 70%. No valvular vegetations noted on echocardiogram. Surgery consulted. Two-view abdominal imaging reveals nonspecific bowel gas pattern. Continue anticoagulation for PEs 12/31-patient doing better. Improved ostomy output on cholestyramine/lower dose of pyridostigmine. ID recommends continuation of vancomycin for 2 weeks as a port salvage treatment for bacteremia. Blood cultures coag negative staph. White count 11.2, phosphorus improved to 2.7 from 1.7. Tolerating diet. Ongoing therapies. 01/01-patient not feeling well this morning, persistent nausea/abdominal pain and lethargic. On crystalloids. Bicarb down to 10. Nephrology consulted. Also surgery on board for possible bowel obstruction. Continuing vancomycin for enterococcal bacteremia per ID. Worsening white count at 14.1, 01/02 Patient had low blood sugar this morning. Stomach achiness. Acidosis improved 01/03 Patient states she has nausea. A little bit of vomiting yesterday. Ostomy out put thicker today. Review of Systems: denies headache/fever/chills/chest or abdominal pain/cough/dyspnea/diarrhea. Otherwise see above. Constitutional Vitals: Vital Signs Temp Pulse Resp BP Pulse Ox 98.1 F 110 H 12 121/67 100 01/03/21 02:47 01/03/21 02:47 01/03/21 02:47 01/03/21 02:47 01/03/21 02:47 Period Temp Pulse Resp BP Sys/Archuleta Pulse Ox Last 24 Hr 97.5 F-98.5 F 80-110 12-20 105-121/66-74 95-100 Intake and Output 01/02/21 01/03/21 01/03/21 21:59 05:59 13:59 Intake Total 2984.5455 960 Output Total 2300 500 500 Balance 684.5455 460 -500 Weight 102.92 kg Intake & Output: Intake & Output 01/02/21 01/03/21 01/03/21 21:59 05:59 13:59 Intake Total 2984.5455 960 Output Total 2300 500 500 Balance 684.5455 460 -500 Weight 102.92 kg Intake: IV 1804.5455 960 Sodium Chloride 0.9% 1,000 ml @ 1000 960 125 mls/hr IV .Q8H [facility] Rx#: [id number] Potassium Phosphate 20 Meq In 254.5455 Dextrose 5% in Water 250 ml @ 127.273 mls/hr IV ONCE ONE Rx#: [id number] Vancomycin 1,500 mg In Sodium 500 Chloride 0.9% 500 ml @ 333.3 mls/hr IV ONCE ONE Rx#: [id number] Oral 1180 0 Output: Void Amount 1225 Stool 800 500 500 Emesis 275 Other: Meal Dinner Percent of Meal Consumed 100% Feeding Ability Independent Urine Appearance Clear Urine Color Bright Yellow Urine Odor Strong Stool Color Brown Brown Stool Consistency Liquid Liquid Exam: General: Alert, Awake, No acute Distress, obese Eyes/N/T: EOMI, Head/Neck: neck supple, CV: RRR, No murmurs, Pulm: Clear b/l, no wheezing/rhonchi/rales Abd: soft, nontender, +BS x4, ostomy Ext: no clubbing/cyanosis, mild b/l LE mild edema Neuro: Alert, no focal deficits, moves all extremities, Skin: warm/dry OBJ DATA Labs CBC & Chem 7: 01/02/21 05:18 01/03/21 06:03 Labs: Abnormal Lab Results 01/03/21 01/03/21 01/02/21 06:03 06:03 05:18 WBC RBC Hgb Hct MCHC Arthur # (Auto) Absolute Neutrophils Sodium 132 L Potassium 3.1 L 3.0 L Carbon Dioxide 20 L BUN 21 H Glucose 135 H Calcium 6.1 L 6.7 L Phosphorus 1.8 L 1.9 L Lactate Dehydrogenase Total Protein 5.2 L Albumin 2.8 L Triglycerides 609 H Urine Appearance Urine Glucose (UA) Ur Random Chloride Vancomycin Trough 01/02/21 01/01/21 01/01/21 05:18 17:45 17:45 WBC 11.6 H RBC 3.77 L Hgb 11.0 L Hct 34.5 L MCHC Arthur # (Auto) Absolute Neutrophils Sodium Potassium Carbon Dioxide BUN Glucose Calcium Phosphorus Lactate Dehydrogenase Total Protein Albumin Triglycerides Urine Appearance Hazy A Urine Glucose (UA) 50 A Ur Random Chloride 69 L Vancomycin Trough 01/01/21 01/01/21 01/01/21 08:05 08:05 06:11 WBC RBC Hgb Hct MCHC Arthur # (Auto) Absolute Neutrophils Sodium 128 L Potassium Carbon Dioxide 10 L* BUN 28 H Glucose 152 H Calcium Phosphorus Lactate Dehydrogenase 240 H 280 H Total Protein Albumin Triglycerides 793 H Urine Appearance Urine Glucose (UA) Ur Random Chloride Vancomycin Trough 20.5 H* 01/01/21 06:11 WBC 14.1 H RBC Hgb Hct MCHC 30.1 L Arthur # (Auto) 1.23 H Absolute Neutrophils 8.93 H Sodium Potassium Carbon Dioxide BUN Glucose Calcium Phosphorus Lactate Dehydrogenase Total Protein Albumin Triglycerides Urine Appearance Urine Glucose (UA) Ur Random Chloride Vancomycin Trough Meds: Medications Acetaminophen (Acetaminophen 325 Mg Tablet) 650 mg PO Q4-6HP PRN; Protocol PRN Reason: Per Pain Protocol/Fever > 101 Hydrocodone Bitart/Acetaminophen (Hydrocodone/Apap 5/325mg Tablet) 0 tab PO Q8HP PRN; Protocol PRN Reason: Per Pain Protocol Last Admin: 01/03/21 07:41 Dose: 2 tab Documented by: Apixaban (Apixaban 5 Mg Tablet) 5 mg PO BID [facility] Last Admin: 01/03/21 00:51 Dose: Not Given Documented by: Cyclobenzaprine HCl (Cyclobenzaprine 10 Mg Tablet) 10 mg PO BIDP PRN PRN Reason: Spasms Last Admin: 12/30/20 17:12 Dose: 10 mg Documented by: Dextrose (Dextrose 50% 50 Ml Vial) 0 ml IV UD PRN PRN Reason: Hypoglycemia Last Admin: 01/02/21 08:15 Dose: 25 ml Documented by: Diagnostic Test (Pha) (Accu-Chek 1 Each Strip) 1 each FS ACHS [facility] Last Admin: 01/02/21 21:27 Dose: 1 each Documented by: Duloxetine HCl (Duloxetine 30 Mg Capsule) 30 mg PO BID [facility] Last Admin: 01/03/21 00:51 Dose: Not Given Documented by: Furosemide (Furosemide 20 Mg Tablet) 20 mg PO QDAY [facility] Last Admin: 01/02/21 09:01 Dose: 20 mg Documented by: Gabapentin (Gabapentin 300 Mg Capsule) 300 mg PO TID [facility] Last Admin: 01/03/21 00:53 Dose: Not Given Documented by: Glucose (Dextrose 31 Gm Oral.Susp) 15 gm PO PRN PRN PRN Reason: Hypoglycemia Heparin Sodium (Porcine) (Heparin Flush 10 Units/Ml 5 Ml Syringe) 5 ml IV Q12 [facility] Last Admin: 01/03/21 00:51 Dose: Not Given Documented by: Hydralazine HCl (Hydralazine 20 Mg/Ml Vial) 10 mg IV Q4-6HP PRN PRN Reason: Hypertension Magnesium Sulfate (Magnesium Sulfate) 2 gm in 50 mls @ 50 mls/hr IV UD PRN PRN Reason: MG = or < 1.7 Last Infusion: 01/02/21 15:51 Dose: Infused Documented by: Potassium Chloride 40 meq/ (Dextrose) 520 mls @ 130 mls/hr IV UD PRN PRN Reason: K+ = or < 3.5 Acetaminophen (Ofirmev) 650 mg in 65 mls @ 130 mls/hr IV Q6HP PRN; Protocol PRN Reason: Per Pain Protocol/Fever > 101 Sodium Chloride (Sodium Chloride 0.9%) 1,000 mls @ 125 mls/hr IV .Q8H [facility] Last Admin: 01/03/21 03:30 Dose: 125 mls/hr Documented by: Insulin Glargine (Insulin Glargine, Human 1 Unit/0.01 Ml) 5 unit SQ BID [facility] Last Admin: 01/03/21 00:52 Dose: Not Given Documented by: Insulin Human Lispro (Insulin Lispro 1 Unit/0.01 Ml Unit) 0 unit SQ ACHS [facility]; Protocol Last Admin: 01/02/21 21:28 Dose: Not Given Documented by: Iron Carb/Multivit/[place]/Folic Acid (Multivit,Ther Iron,Ca,Fa & Min 1 Tablet) 1 tab PO DAILY [facility] Last Admin: 01/02/21 09:02 Dose: 1 tab Documented by: Levothyroxine Sodium (Levothyroxine 125 Mcg Tablet) 250 mcg PO QAMAC [facility] Last Admin: 01/03/21 07:24 Dose: 250 mcg Documented by: Magnesium Oxide (Magnesium Oxide 400 Mg Tablet) 400 mg PO BID [facility] Last Admin: 01/03/21 00:52 Dose: Not Given Documented by: Melatonin (Melatonin 3 Mg Tablet) 3 mg PO HSP PRN PRN Reason: Insomnia Metoprolol Succinate (Metoprolol Succinate 25 Mg Tab.Xl.24h) 25 mg PO DAILY [facility] Last Admin: 01/02/21 13:39 Dose: Not Given Documented by: Metoprolol Tartrate (Metoprolol Tartrate 5 Mg/5 Ml Vial) 5 mg IV Q5M PRN PRN Reason: Heart Rate > 140 bpm Octreotide Acetate (Octreotide Acetate 50 Mcg/Ml Ampul) 50 mcg SQ TID [facility] Last Admin: 01/03/21 00:53 Dose: Not Given Documented by: Ondansetron HCl (Ondansetron 4 Mg Odt Tablet) 4 mg SL Q4HP PRN PRN Reason: Nausea Last Admin: 12/30/20 22:39 Dose: 4 mg Documented by: Ondansetron HCl (Ondansetron 4 Mg/2 Ml Vial) 4 mg IV Q4-6HP PRN; Protocol PRN Reason: Nausea And Vomiting Last Admin: 01/03/21 07:20 Dose: 4 mg Documented by: Polyethylene Glycol (Polyethylene Glycol 3350 17 Gm Packet) 17 gm PO DAILYP PRN PRN Reason: Constipation Potassium Chloride (Potassium Chloride 20 Meq Packet) 40 meq PO DAILYP PRN PRN Reason: K+ < 3.5 Prednisone (Prednisone 20 Mg Tablet) 20 mg PO [facility] Last Admin: 01/02/21 09:02 Dose: 20 mg Documented by: Promethazine HCl (Promethazine 25 Mg Tablet) 25 mg PO Q6HP PRN PRN Reason: Nausea Last Admin: 01/03/21 01:24 Dose: 25 mg Documented by: Pyridostigmine Lando (Pyridostigmine Lando 10 Mg/2 Ml Ampul) 10 mg IM Q6H [facility] Last Admin: 01/03/21 00:54 Dose: Not Given Documented by: Sodium Chloride (0.9 % Sodium Chloride 10 Ml Syringe) 10 ml IV Q12 [facility] Last Admin: 01/03/21 00:53 Dose: Not Given Documented by: Sodium Chloride (0.9 % Sodium Chloride 10 Ml Syringe) 10 ml IV Q8 [facility] Last Admin: 01/03/21 00:53 Dose: Not Given Documented by: Thiamine HCl (Thiamine 100 Mg Tablet) 100 mg PO DAILY [facility] Last Admin: 01/02/21 09:02 Dose: 100 mg Documented by: Vancomycin HCl (Vancomycin Per Pharmacy) 1 order IV UD [facility]; Protocol A/P Narrative A/P Narrative: A: *Nausea/vomiting/abdominal pain: Suspicious for bowel obstruction or ongoing chronic abdominal issues -improving *History of recurrent SBO follows up with Dr. Currie surgery. *Mixed gap acidosis: excessive bicarbonate loss from ostomy. -improved *Hyponatremia: improved *High-ostomy output: -Improved post addition of cholestyramine/lower pyridostigmine per surgery *Hypercalcemia: 18 on presentation, resolved after bisphosphonate/crystalloids *Hyperkalemia: resolved *Acute kidney injury: resolved *Severe sepsis with evidence of endorgan dysfunction: Clinically resolved *Coag negative staph bacteremia: surveillance cultures negative so far/echocardiogram no evidence of valvular vegetation -ID recommends 2 weeks vancomycin as a port salvage treatment. 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 *Morbid obesity *HTN: on metoprolol Plan: -Surgery managing abdominal symptoms -Nephrology consult for mixed gap acidosis/low bicarb -IVF's/electrolytes per nephro, on bicarb gtt -Continue vancomycin until 01/12/2021 for 2-wk course from first neg BC, f/u with ID outpt -Continue anticoagulation for PE -home calcium supp initially held, restart gradually, level now low -cont home prednisone/BB -continue basal (decreased) and SSI/CC diet, metformin held -PT as tolerated -Discharge planning likely SNF once clinically stable -ppx: apixaban Time Spent With Patient Time: Total time spent is greater than 50% in coordination of care (as documented) at patient's floor/unit and/or counseling patient:
--- NOTE | 2021-01-03 09:21 | Nephrology Progress Note ---
SUBJECTIVE Subjective Patient information: Note initiated : 01/03/21 at 9:19 am Service Date, if different from initiated Date: [] Patient: Dayanna Guo 60 y/o F admitted on 12/27/20 for weakness, cool clammy. Chief Complaint: [weakness] Patient with multiple medical problems including myasthenia gravis, repeated episodes of small bowel obstruction both functional and adhesion related who was recently admitted with severe dehydration hypercalcemia treated with IV fluids and biphosphonates. Now readmitted and developed a non-anion gap metabolic acidosis in association with her bicarbonate rich ileostomy output. Correction of the acidosis has led to hypokalemia and hypophosphatemia. There are also magnesium and sodium abnormalities. As shown below, she continues to require potassium and phosphorus supplementation, will require oral bicarbonate replacement in the form of Bicitra, and her calcium is showing the effects of recent biphosphonate administration. IV CaCl2 given and calcitriol po. Laboratory Tests 01/03/21 01/03/21 06:03 06:03 Sodium 135 Potassium 3.1 L Chloride 102 Carbon Dioxide 20 L Anion Gap 13.0 BUN 17 Creatinine 0.6 GFR Calculation 100 Glucose 135 H Calcium 6.1 L Phosphorus 1.8 L Magnesium 1.6 Stop KDUR as she probably does not absorb muck IVF with KCL and prn KCl riders KPO4 riders Bicitra as bicarb replacement Monitor labs Principal diagnosis: Chronic intestinal pseudoobstruction; high output ileostomy Constitutional Vitals: Vital Signs Temp Pulse Resp BP Pulse Ox 36.6 C 105 H 20 99/52 97 01/03/21 08:00 01/03/21 08:00 01/03/21 08:00 01/03/21 08:00 01/03/21 08:00 Period Temp Pulse Resp BP Sys/Archuleta Pulse Ox Last 24 Hr 36.4 C-36.9 C 80-110 12-20 99-121/52-74 95-100 Intake and Output 01/02/21 01/03/21 01/03/21 21:59 05:59 13:59 Intake Total 2984.5455 960 1040 Output Total 2300 500 1050 Balance 684.5455 460 -10 Weight 102.92 kg Intake & Output: Intake & Output 01/02/21 01/03/21 01/03/21 21:59 05:59 13:59 Intake Total 2984.5455 960 1040 Output Total 2300 500 1050 Balance 684.2355 460 -10 Weight 102.92 kg Intake: IV 1804.5455 960 Sodium Chloride 0.9% 1,000 ml @ 1000 960 125 mls/hr IV .Q8H [facility] Rx#: [id number] Potassium Phosphate 20 Meq In 254.5455 Dextrose 5% in Water 250 ml @ 127.273 mls/hr IV ONCE ONE Rx#: [id number] Vancomycin 1,500 mg In Sodium 500 Chloride 0.9% 500 ml @ 333.3 mls/hr IV ONCE ONE Rx#: [id number] Oral 1180 0 1040 Output: Void Amount 1225 400 Stool 800 500 650 Emesis 275 Other: Meal Dinner Breakfast Percent of Meal Consumed 100% Refused Feeding Ability Independent Independent Urine Appearance Clear Clear Urine Color Bright Yellow Pale Urine Odor Strong Normal Stool Color Brown Brown Stool Consistency Liquid Liquid General appearance: cooperative, no acute distress and obese Head Head exam: Present atraumatic and normocephalic Eye Eye exam: Present EOMI, normal appearance and PERRL; Absent nystagmus and scleral icterus Pupils: Present PERRL ENT ENT exam: Present mucous membranes moist Neck Neck exam: Present full ROM; Absent meningismus Respiratory Respiratory exam: Present normal respiratory exam and CTAB Cardiovascular Cardiovascular exam: Present normal rate and rhythm, RRR, +S1 and +S2; Absent JVD GI/Abdominal GI/Abdominal exam: Present normal bowel sounds and distended; Absent tenderness Additional comments: Less output from ileostomy Extremities Exam Extremities exam: Present full ROM; Absent pedal edema Neurological Exam Neurological exam: Present alert, CN II-XII intact and oriented X3 Psychiatric Psychiatric exam: Present normal affect and normal mood Skin Skin exam: Present warm; Absent petechiae and rash Additional findings Additional findings: Overall improving A/P Assessment and plan (1) Metabolic acidosis with normal anion gap and failure of bicarbonate regeneration: Status: Acute (2) Hyponatremia with decreased serum osmolality: Status: Acute (3) Hypokalemia: Status: Acute (4) Hypophosphatemia: Status: Acute (5) Hypocalcemia: Status: Resolved (6) Recurrent intestinal obstruction: Status: Chronic Comment: many recurrences; many surgical interventions (7) Chronic intestinal pseudo-obstruction: Status: Chronic (8) Obesity, Class II, BMI 35-39.9: Status: Chronic Comment: Chronic. Narrative A/P Narrative: 1. GI Bicarb losses are the cause based on maximally acidified urine 2. Serial BMP and daily mag and phos 3. Check TSH was acceptable or actually supressed 4. Reducing GI fluid and bicarb losses will be fatima. 5. replace K, PO4 losses 6. Calcium is low now due to biphosphonate therapy earlier and IV PO4 currently Calcitriolol is risky if she gets dehydrated again as she had reached a level of 16-18 last hospitalization. 7. I suspect she will have to be treated with a combination of oral potassium citrate (which would kill 2 birds with 1 stone), or KCl elixir and Bicitra solution. Her bowel motility issues make using formulations such as K-Dur lesson in futility 8. Suspect she will need Neutra-Phos K as an outpatient as well. 9. I probably would use a combination of vitamin D3 and calcium supplementation as she has an intact liver parathyroid kidney axis and should be able to regulate the formulation of 125 vitamin D3 so as to lessen the risk of hypercalcemia. 10. At a minimum she will need once or week labs upon discharge Time Spent With Patient Time: Total time spent is greater than 50% in coordination of care (as documented) at patient's floor/unit and/or counseling patient:
[2021-01-03] MEDS: CALCITRIOL 0.25 MCG CAPSULE PO SCH ×2 (12:44→16:52)
[2021-01-03] MEDS: POTASSIUM CHLORIDE 40 MEQ in 0.9 % SODIUM CHLORIDE 1,000 ML IV SCH (12:44)
[2021-01-03] MEDS: CITRIC ACID/SODIUM CITRATE 15 ML ORAL.SOL PO SCH ×2 (12:44→16:50)
--- NOTE | 2021-01-03 14:46 | General Surgery Progress Note ---
SUBJECTIVE Subjective Patient information: Note initiated : 01/03/21 at 2:42 pm Service Date, if different from initiated Date: [] Patient: Dayanna Guo 60 y/o F admitted on 12/27/20 for weakness, cool clammy. Chief Complaint: [] Principal diagnosis: Chronic intestinal pseudoobstruction; high output ileostomy Interval history: Patient is clinically stable. She feels much better and wishes to have increasing her diet. She has had modest decrease in output through her stoma. Her electrolytes are correcting and her renal panel is normalized. Abdominal x-rays show significant reduction in small bowel gas. She is still has moderate amount of output through her stoma but it has decreased. Constitutional Vitals: Vital Signs Temp Pulse Resp BP Pulse Ox 98.3 F 92 H 20 105/63 98 01/03/21 12:00 01/03/21 12:00 01/03/21 12:00 01/03/21 12:00 01/03/21 12:00 Period Temp Pulse Resp BP Sys/Archuleta Pulse Ox Last 24 Hr 97.6 F-98.5 F 92-110 12-20 99-121/52-74 96-100 Intake and Output 01/03/21 01/03/21 01/03/21 05:59 13:59 21:59 Intake Total 960 2100 254.5455 Output Total 500 1600 Balance 460 243 110.5489 Intake & Output: Intake & Output 01/03/21 01/03/21 01/03/21 05:59 13:59 21:59 Intake Total 960 2100 254.5455 Output Total 500 1600 Balance 460 433 533.3706 Intake: IV 960 2783 395.5232 Sodium Chloride 0.9% 1,000 ml @ 960 1000 125 mls/hr IV .Q8H [facility] Rx#: [id number] Calcium Gluconate 4.65 Meq In 60 Dextrose 5% in Water 50 ml @ 100 mls/hr IV ONCE ONE Rx#: [id number] Potassium Phosphate 20 Meq In 254.5455 Dextrose 5% in Water 250 ml @ 127.273 mls/hr IV ONCE ONE Rx#: [id number] Oral 0 1040 Output: Void Amount 950 Stool 500 650 Other: Meal Breakfast Percent of Meal Consumed Refused Feeding Ability Independent Urine Appearance Clear Urine Color Straw Urine Odor Normal Stool Color Brown Stool Consistency Liquid ENT ENT exam: Present mucous membranes moist Neck Neck exam: Present full ROM; Absent lymphadenopathy and tenderness Respiratory Respiratory exam: Present normal respiratory exam and CTAB Cardiovascular Cardiovascular exam: Present normal rate and rhythm, RRR, +S1 and +S2; Absent JVD GI/Abdominal GI/Abdominal exam: Present soft, distended (Distention is significantly improved than on yesterday) and hyperactive bowel sounds; Absent organomegaly Additional comments: Stoma is patent and functioning normally Extremities Exam Extremities exam: Present normal inspection; Absent joint swelling Neurological Exam Neurological exam: Present alert, CN II-XII intact and oriented X3 Psychiatric Psychiatric exam: Present normal affect and normal mood Skin Skin exam: Present normal color A/P Assessment and plan (1) Primary chronic pseudo-obstruction of small intestine: Status: Acute (2) Nausea and vomiting: Status: Acute Qualifiers: Vomiting Intractability: non-intractable Vomiting type: unspecified Qualified Code(s): R11.2 - Nausea with vomiting, unspecified (3) Myasthenia gravis: Status: Chronic Comment: Prednisone dependent at 20 mg daily. (4) Polyglandular autoimmune syndrome: Status: Chronic (5) Ileostomy status: Status: Acute Narrative A/P Narrative: Increase octreotide to 100 mcg every 6 hours Continue to monitor output via her stoma and follow the correction of her electrolytes by nephrology and hospitalist Time Spent With Patient Time: Total time spent is greater than 50% in coordination of care (as documented) at patient's floor/unit and/or counseling patient:
[2021-01-03] MEDS ORDERED: VANCOMYCIN PER PHARMACY IV SCH (16:30)
[2021-01-03] MEDS: VANCOMYCIN 1,500 MG in 0.9 % SODIUM CHLORIDE 500 ML IV SCH (17:35)
[2021-01-03] MEDS ORDERED: SIMETHICONE 80 MG TAB.CHEW CHEWED PRN (21:06)
[2021-01-04] MEDS: HYDROmorphone 0.5 MG/0.5 ML SYRINGE IV PRN ×5 (00:09→13:19)
[2021-01-04] MEDS: PYRIDOSTIGMINE BROMIDE 10 MG/2 ML AMPUL IM SCH ×4 (00:11→19:32)
[2021-01-04] MEDS: ONDANSETRON 4 MG/2 ML VIAL IV PRN ×3 (00:52→12:03)
[2021-01-04] MEDS: 0.9 % SODIUM CHLORIDE 1,000 ML IV SCH (02:42)
[2021-01-04] MEDS: POTASSIUM CHLORIDE 40 MEQ in 0.9 % SODIUM CHLORIDE 1,000 ML IV SCH (03:02)
[2021-01-04] MEDS: 0.9 % SODIUM CHLORIDE 10 ML SYRINGE IV SCH ×5 (06:00→21:57)
[2021-01-04] MEDS: LEVOTHYROXINE 125 MCG TABLET PO SCH (06:57)
[2021-01-04] MEDS: CITRIC ACID/SODIUM CITRATE 15 ML ORAL.SOL PO SCH ×3 (06:57→17:04)
[2021-01-04] MEDS: predniSONE 20 MG TABLET PO SCH (06:57)
[2021-01-04] MEDS: INSULIN LISPRO 1 UNIT/0.01 ML UNIT SQ SCH ×4 (07:06→21:56)
[2021-01-04 07:59] LABS: ALT/SGPT 16 U/L (<40); AST/SGOT 17 U/L (<32); Albumin 3.5 gm/dL (3.2-5.2); Alkaline Phosphatase 102 U/L (39-117); Bilirubin,Direct < 0.2 mg/dL (0-0.3); Bilirubin,Total < 0.2 mg/dL (0.1-1.0); Blood Urea Nitrogen 12 mg/dL (6-20); Calcium 7.3 mg/dL (8.6-10.4); Carbon Dioxide 20 mmol/L (22-30); Chloride 104 mmol/L (96-108); Globulin 3.4 gm/dL (2.2-3.7); Glomerular Filtration Rate 81; Glucose 214 mg/dL (70-105); Lactate Dehydrogenase 345 U/L (135-225); Phosphorous 2.5 mg/dL (2.5-4.5); Triglycerides 396 mg/dL (<150); Uric Acid 5.7 mg/dL (2.5-8.0)
[2021-01-04] MEDS ORDERED: CALCIUM GLUCONATE 4.65 MEQ in DEXTROSE 5% IN WATER 50 ML IV ONE (08:36)
--- NOTE | 2021-01-04 08:36 | Internal Med Progress Note ---
SUBJECTIVE Subjective Patient information: Note initiated : 01/04/21 at 8:34 am Service Date, if different from initiated Date: [] Patient: Dayanna Guo a 60 y/o F admitted on 12/27/20 for weakness, cool clammy. Chief Complaint: [] Principal diagnosis: Chronic intestinal pseudoobstruction; high output ileostomy Interval history: Interval history: Ms. Guo is a 60 year old F with a history of recurrent bowel obstruction and was recently discharged December 20 to snf facility. Patient was doing well however over the last 3 days nursing staff has noticed increasing weakness/cough/fatigue malaise and inability to function. She in all probability was exposed to sick contacts. She denies headache or ph otophobia endorses to weakness myalgia and joint aches. She denies increased ostomy output or dysuria, abdominal pain or distention. EMS was called after facility staff noticed her increasing lethargic and confused. Initial work-up was consistent with severe sepsis elevated white count/lactic acidosis without a clear source. Cultures were drawn patient was started on antibiotic coverage. Calcium at 18 with severe volume depletion. Patient was started on crystalloids. Notably she was discharged on diuretics after recent hospitalization. subsequently nephrology was consulted in light of hy percalcemia/potassium 5.9/acute kidney injury with a creatinine of 1.4. Per nephrology patient was started on crystalloid at 200 cc/bicarbonate drip/Kayexalate. Subsequently hospitalist service was consulted for admission At the time of evaluation patient is very lethargic drowsy and unable to open her eyes. She is barely able to verbalize and provide history. Most of history was obtained from review of medical records and ER physician. No family members present. 12/28-patient doing well. Calcium down to 12 from 18. More lucid alert. Bisphosphonates given today. Fever defervesced. White count downtrending from 19 point 8K to 12.4. No obvious source of infection. Case discussed with nephrology. Potassium down to 4.2 post Kayexalate. Ostomy output stable. No evidence of bowel obstruction. Continue existing treatment/crystalloids and supportive management with diet and therapies. Possible transition to SNF in 48 hours. [id number] cocci in blood culture. Serratia on urine culture. Antibiotic escalated to cefepime, continue vancomycin, surveillance cultures, e chocardiogram to rule out endocarditis. However clinically improving and improved electrolytes, creatinine 0.8, potassium 3.8, calcium down to 9.5 status post bisphosphonate. No overnight fever chills. Continue close monitoring. 12/30-patient complains of excessive ostomy output throughout the night. Could not sleep. However electrolytes improved with calcium 9.7. GPC bacteremia ID consulted. ID recommends discontinuing cefepime as unlikely Serratia as a cause of sepsis. Continue vancomycin. Echocardiogram EF 70%. No valvular vegetations noted on echocardiogram. Surgery consulted. Two-view abdominal imaging reveals nonspecific bowel gas pattern. Continue anticoagulation for PEs 12/31-patient doing better. Improved ostomy output on cholestyramine/lower dose of pyridostigmine. ID recommends continuation of vancomycin for 2 weeks as a port salvage treatment for bacteremia. Blood cultures coag negative staph. White count 11.2, phosphorus improved to 2.7 from 1.7. Tolerating diet. Ongoing therapies. 01/01-patient not feeling well this morning, persistent nausea/abdominal pain and lethargic. On crystalloids. Bicarb down to 10. Nephrology consulted. Also surgery on board for possible bowel obstruction. Continuing vancomycin for enterococcal bacteremia per ID. Worsening white count at 14.1, 01/02 Patient had low blood sugar this morning. Stomach achiness. Acidosis improved 01/03 Patient states she has nausea. A little bit of vomiting yesterday. Ostomy out put thicker today. 01/04 Patient feeling sick. States she is bloated and has nausea. X-ray by surgeon pending. Review of Systems: denies headache/fever/chills/chest or abdominal pain/cough/dyspnea/diarrhea. Otherwise see above. Constitutional Vitals: Vital Signs Temp Pulse Resp BP Pulse Ox 97.5 F 112 H 20 155/85 97 01/04/21 03:10 01/04/21 03:10 01/04/21 06:25 01/04/21 03:10 01/03/21 23:35 Period Temp Pulse Resp BP Sys/Archuleta Pulse Ox Last 24 Hr 97.3 F-98.3 F 75-112 12-20 105-155/63-86 97-98 Intake and Output 01/03/21 01/04/21 01/04/21 21:59 05:59 13:59 Intake Total 1954.5455 1320 Output Total 2575 250 225 Balance -620.4545 1070 -225 Weight 105.868 kg Intake & Output: Intake & Output 01/03/21 01/04/21 01/04/21 21:59 05:59 13:59 Intake Total 1954.5455 1320 Output Total 2575 250 225 Balance -620.4545 1070 -225 Weight 105.868 kg Intake: IV 754.5455 1020 Potassium Chloride 40 Meq In 1020 Sodium Chloride 0.9% 1,000 ml @ 84 mls/hr IV .Q12H9M [facility] Rx#: [id number] Potassium Phosphate 20 Meq In 254.5455 Dextrose 5% in Water 250 ml @ 127.273 mls/hr IV ONCE ONE Rx#: [id number] Vancomycin 1,500 mg In Sodium 500 Chloride 0.9% 500 ml @ 333.3 mls/hr IV Q24H [facility] Rx#: [id number] Oral 1200 300 Output: Void Amount 1200 0 Stool 1350 200 225 Emesis 25 50 Other: Meal Dinner Percent of Meal Consumed 75% Feeding Ability Independent Urine Appearance Clear Urine Color Straw Urine Odor Normal Stool Size Large Stool Color Brown Brown Stool Consistency Liquid Liquid Watery Watery Exam: General: Alert, Awake, No acute Distress, obese Eyes/N/T: EOMI, Head/Neck: neck supple, CV: RRR, No murmurs, Pulm: Clear b/l, no wheezing/rhonchi/rales Abd: soft, nontender, +BS x4, ostomy Ext: no clubbing/cyanosis, mild b/l LE mild edema Neuro: Alert, no focal deficits, moves all extremities, Skin: warm/dry OBJ DATA Labs CBC & Chem 7: 01/02/21 05:18 01/04/21 06:10 Labs: Abnormal Lab Results 01/04/21 01/03/21 01/03/21 06:10 06:03 06:03 WBC RBC Hgb Hct Sodium Potassium 3.1 L Carbon Dioxide 20 L 20 L Anion Gap 18.0 H BUN Glucose 214 H 135 H Calcium 7.3 L 6.1 L Phosphorus 1.8 L Lactate Dehydrogenase 345 H Total Protein Albumin Triglycerides 396 H Urine Appearance Urine Glucose (UA) Ur Random Chloride Vancomycin Trough 01/02/21 01/02/21 01/01/21 05:18 05:18 17:45 WBC 11.6 H RBC 3.77 L Hgb 11.0 L Hct 34.5 L Sodium 132 L Potassium 3.0 L Carbon Dioxide Anion Gap BUN 21 H Glucose Calcium 6.7 L Phosphorus 1.9 L Lactate Dehydrogenase Total Protein 5.2 L Albumin 2.8 L Triglycerides 609 H Urine Appearance Hazy A Urine Glucose (UA) 50 A Ur Random Chloride Vancomycin Trough 01/01/21 01/01/21 01/01/21 17:45 08:05 08:05 WBC RBC Hgb Hct Sodium Potassium Carbon Dioxide Anion Gap BUN Glucose Calcium Phosphorus Lactate Dehydrogenase 240 H Total Protein Albumin Triglycerides Urine Appearance Urine Glucose (UA) Ur Random Chloride 69 L Vancomycin Trough 20.5 H* Meds: Medications Acetaminophen (Acetaminophen 325 Mg Tablet) 650 mg PO Q4-6HP PRN; Protocol PRN Reason: Per Pain Protocol/Fever > 101 Hydrocodone Bitart/Acetaminophen (Hydrocodone/Apap 5/325mg Tablet) 0 tab PO Q8HP PRN; Protocol PRN Reason: Per Pain Protocol Last Admin: 01/03/21 16:50 Dose: 2 tab Documented by: Apixaban (Apixaban 5 Mg Tablet) 5 mg PO BID [facility] Last Admin: 01/03/21 22:20 Dose: Not Given Documented by: Citric Acid/Sodium Citrate (Citric Acid/Sodium Citrate 15 Ml Oral.[place]) 15 ml PO TIDCC [facility] Last Admin: 01/04/21 06:57 Dose: Not Given Documented by: Cyclobenzaprine HCl (Cyclobenzaprine 10 Mg Tablet) 10 mg PO BIDP PRN PRN Reason: Spasms Last Admin: 12/30/20 17:12 Dose: 10 mg Documented by: Dextrose (Dextrose 50% 50 Ml Vial) 0 ml IV UD PRN PRN Reason: Hypoglycemia Last Admin: 01/02/21 08:15 Dose: 25 ml Documented by: Diagnostic Test (Pha) (Accu-Chek 1 Each Strip) 1 each FS ACHS [facility] Last Admin: 01/04/21 07:02 Dose: 1 each Documented by: Duloxetine HCl (Duloxetine 30 Mg Capsule) 30 mg PO BID [facility] Last Admin: 01/03/21 22:20 Dose: Not Given Documented by: Furosemide (Furosemide 20 Mg Tablet) 20 mg PO QDAY [facility] Last Admin: 01/03/21 08:18 Dose: 20 mg Documented by: Gabapentin (Gabapentin 300 Mg Capsule) 300 mg PO TID [facility] Last Admin: 01/03/21 22:20 Dose: Not Given Documented by: Glucose (Dextrose 31 Gm Oral.Susp) 15 gm PO PRN PRN PRN Reason: Hypoglycemia Heparin Sodium (Porcine) (Heparin Flush 10 Units/Ml 5 Ml Syringe) 5 ml IV Q12 [facility] Last Admin: 01/03/21 21:34 Dose: Not Given Documented by: Hydralazine HCl (Hydralazine 20 Mg/Ml Vial) 10 mg IV Q4-6HP PRN PRN Reason: Hypertension Hydromorphone HCl (Hydromorphone 0.5 Mg/0.5 Ml Syringe) 0.25 - 0.5 mg IV Q3HP PRN; Protocol PRN Reason: Per Pain Protocol Last Admin: 01/04/21 06:00 Dose: 0.25 mg Documented by: Magnesium Sulfate (Magnesium Sulfate) 2 gm in 50 mls @ 50 mls/hr IV UD PRN PRN Reason: MG = or < 1.7 Last Infusion: 01/02/21 15:51 Dose: Infused Documented by: Potassium Chloride 40 meq/ (Dextrose) 520 mls @ 130 mls/hr IV UD PRN PRN Reason: K+ = or < 3.5 Acetaminophen (Ofirmev) 650 mg in 65 mls @ 130 mls/hr IV Q6HP PRN; Protocol PRN Reason: Per Pain Protocol/Fever > 101 Potassium Chloride 40 meq/ (Sodium Chloride) 1,020 mls @ 84 mls/hr IV .Q12H9M [facility] Stop: 01/04/21 12:18 Last Admin: 01/04/21 03:02 Dose: 84 mls/hr Documented by: Vancomycin HCl 1,500 mg/ (Sodium Chloride) 500 mls @ 333.3 mls/hr IV Q24H [facility] Last Infusion: 01/03/21 19:10 Dose: Infused Documented by: Insulin Glargine (Insulin Glargine, Human 1 Unit/0.01 Ml) 5 unit SQ BID [facility] Last Admin: 01/03/21 21:44 Dose: 5 units Documented by: Insulin Human Lispro (Insulin Lispro 1 Unit/0.01 Ml Unit) 0 unit SQ ACHS [facility]; Protocol Last Admin: 01/04/21 07:06 Dose: 3 units Documented by: Iron Carb/Multivit/[place]cmullen/Folic Acid (Multivit,Ther Iron,Ca,Fa & Min 1 Tablet) 1 tab PO DAILY [facility] Last Admin: 01/03/21 08:19 Dose: 1 tab Documented by: Levothyroxine Sodium ([facility]othyroxine 125 Mcg Tablet) [facility] Last Admin: 01/04/21 06:57 Dose: Not Given Documented by: Magnesium Oxide (Magnesium Oxide 400 Mg Tablet) 400 mg PO BID [facility] Last Admin: 01/03/21 22:20 Dose: Not Given Documented by: Melatonin (Melatonin 3 Mg Tablet) 3 mg PO HSP PRN PRN Reason: Insomnia Metoprolol Succinate (Metoprolol Succinate 25 Mg Tab.Xl.24h) 25 mg PO DAILY [facility] Last Admin: 01/03/21 08:18 Dose: 25 mg Documented by: Metoprolol Tartrate (Metoprolol Tartrate 5 Mg/5 Ml Vial) 5 mg IV Q5M PRN PRN Reason: Heart Rate > 140 bpm Octreotide Acetate (Octreotide Acetate 100 Mcg/Ml Vial) 100 mcg SQ TID [facility] Ondansetron HCl (Ondansetron 4 Mg Odt Tablet) 4 mg SL Q4HP PRN PRN Reason: Nausea Last Admin: 12/30/20 22:39 Dose: 4 mg Documented by: Ondansetron HCl (Ondansetron 4 Mg/2 Ml Vial) 4 mg IV Q4-6HP PRN; Protocol PRN Reason: Nausea And Vomiting Last Admin: 01/04/21 06:00 Dose: 4 mg Documented by: Polyethylene Glycol (Polyethylene Glycol 3350 17 Gm Packet) 17 gm PO DAILYP PRN PRN Reason: Constipation Prednisone (Prednisone 20 Mg Tablet) 20 mg PO [facility] Last Admin: 01/04/21 06:57 Dose: Not Given Documented by: Promethazine HCl (Promethazine 25 Mg Tablet) 25 mg PO Q6HP PRN PRN Reason: Nausea Last Admin: 01/03/21 01:24 Dose: 25 mg Documented by: Pyridostigmine [place] (Pyridostigmine [place] 10 Mg/2 Ml Ampul) 10 mg IM Q6H [facility] Last Admin: 01/04/21 06:57 Dose: 10 mg Documented by: Simethicone (Simethicone 80 Mg Tab.Chew) 160 mg [facility] PRN PRN Reason: Dyspepsia Last Admin: 01/03/21 22:34 Dose: 160 mg Documented by: Sodium Chloride (0.9 % Sodium Chloride 10 Ml Syringe) 10 ml IV Q12 [facility] Last Admin: 01/03/21 21:35 Dose: Not Given Documented by: Sodium Chloride (0.9 % Sodium Chloride 10 Ml Syringe) 10 ml IV Q8 [facility] Last Admin: 01/04/21 06:00 Dose: Not Given Documented by: Thiamine HCl (Thiamine 100 Mg Tablet) 100 mg PO DAILY [facility] Last Admin: 01/03/21 08:19 Dose: 100 mg Documented by: Vancomycin HCl (Vancomycin Per Pharmacy) 1 order IV UD MALENA A/P Narrative A/P Narrative: A: *Nausea/vomiting/abdominal pain: Suspicious for bowel obstruction or ongoing chronic abdominal issues -improving *History of recurrent SBO follows up with Dr. Currie surgery. *Mixed gap acidosis: excessive bicarbonate loss from ostomy. -improved *Hyponatremia: improved *High-ostomy output: -Improved post addition of cholestyramine/lower pyridostigmine per surgery *Hypercalcemia: 18 on presentation, resolved after bisphosphonate/crystalloids *Hyperkalemia: resolved *Acute kidney injury: resolved *Severe sepsis with evidence of endorgan dysfunction: Clinically resolved *Coag negative staph bacteremia: surveillance cultures negative so far/echocardiogram no evidence of valvular vegetation -ID recommends 2 weeks vancomycin as a port salvage treatment. 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 Awaiting final I&S to deescalate if possible -Continue anticoagulation for PE -home calcium supp initially held, will defer final vit D/Calcium regimen to Nephrology -cont home prednisone/BB -continue basal (decreased) and SSI/CC diet, metformin held -PT as tolerated -Discharge planning likely SNF once clinically stable -ppx: apixaban Time Spent With Patient Time: Total time spent is greater than 50% in coordination of care (as documented) at patient's floor/unit and/or counseling patient:
[2021-01-04] MEDS: DULoxetine 30 MG CAPSULE PO SCH ×2 (08:51→21:34)
[2021-01-04] MEDS: MAGNESIUM OXIDE 400 MG TABLET PO SCH (08:52)
[2021-01-04] MEDS: GABAPENTIN 300 MG CAPSULE PO SCH ×2 (08:52→14:45)
[2021-01-04] MEDS: FUROSEMIDE 20 MG TABLET PO SCH (08:52)
[2021-01-04] MEDS: APIXABAN 5 MG TABLET PO SCH ×2 (08:52→21:34)
[2021-01-04] MEDS: MULTIVIT,THER IRON,CA,FA & MIN 1 TABLET PO SCH (08:52)
[2021-01-04] MEDS: INSULIN GLARGINE, HUMAN 1 UNIT/0.01 ML SQ SCH ×2 (08:56→21:37)
[2021-01-04] MEDS: METOPROLOL SUCCINATE 25 MG TAB.XL.24H PO SCH (09:08)
[2021-01-04] MEDS: OCTREOTIDE ACETATE 100 MCG/ML VIAL SQ SCH ×3 (09:08→21:36)
[2021-01-04] MEDS: hydrALAZINE 20 MG/ML VIAL IV PRN (09:19)
[2021-01-04] MEDS: THIAMINE 100 MG TABLET PO SCH (09:20)
--- NOTE | 2021-01-04 09:30 | XRay Report ---
CLINICAL INFORMATION: FOLLOW -UP OF SMALL BOWEL OBSTRUCTION COMPARISON: None. FINDINGS: The stomach and small bowel are now markedly dilated with multiple air-fluid levels. Findings suspicious for recurrent distal small bowel obstruction. No free air. IMPRESSION: Probable recurrent distal small bowel obstruction. Consider repeat water-soluble contrast small bowel follow-through to determine GI tract patency. Interpreted and Authenticated by: All Lundberg 01/04/21
[2021-01-04] MEDS: VANCOMYCIN 1,500 MG in 0.9 % SODIUM CHLORIDE 500 ML IV SCH (09:59)
--- NOTE | 2021-01-04 11:49 | General Surgery Progress Note ---
SUBJECTIVE Subjective Patient information: Note initiated : 01/04/21 at 11:43 am Service Date, if different from initiated Date: [] Patient: Dayanna Guo 60 y/o F admitted on 12/27/20 for weakness, cool clammy. Chief Complaint: [] Principal diagnosis: Chronic intestinal pseudoobstruction; high output ileostomy Interval history: Patient had progressive swelling of her bowel last evening after eating some meat loaf. She continued to put out moderate amount of liquid stool in spite of the fact that her bowel was dilated. She has had 1500 cc of output via her ileostomy today. She however has massive dilation of all of her small bowel extending down to the ileum. She continues to have output and gas through her ileostomy. Nasogastric tube has been inserted and the plan is for decompression today followed by Gastrografin study tomorrow. She is advised that she will have to stay on very soft foods and liquids to prevent further problems with obstruction. Constitutional Vitals: Vital Signs Temp Pulse Resp BP Pulse Ox 97.4 F 110 H 20 119/66 94 01/04/21 08:35 01/04/21 08:35 01/04/21 08:35 01/04/21 10:00 01/04/21 08:35 Period Temp Pulse Resp BP Sys/Archuleta Pulse Ox Last 24 Hr 97.3 F-98.3 F 75-112 12-20 105-160/63-86 94-98 Intake and Output 01/03/21 01/04/21 01/04/21 21:59 05:59 13:59 Intake Total 4.5455 1320 Output Total 2575 250 1150 Balance -620.4545 1070 -1150 Weight 233 lb 6.4 oz Intake & Output: Intake & Output 01/03/21 01/04/21 01/04/21 21:59 05:59 13:59 Intake Total 1954.5455 1320 Output Total 2575 250 1150 Balance -620.4545 1070 -1150 Weight 233 lb 6.4 oz Intake: IV 754.5455 1020 Potassium Chloride 40 Meq In 1020 Sodium Chloride 0.9% 1,000 ml @ 84 mls/hr IV .Q12H9M [facility] Rx#: [id number] Potassium Phosphate 20 Meq In 254.5455 Dextrose 5% in Water 250 ml @ 127.273 mls/hr IV ONCE ONE Rx#: [id number] Vancomycin 1,500 mg In Sodium 500 Chloride 0.9% 500 ml @ 333.3 mls/hr IV Q24H [facility] Rx#: [id number] Oral 1200 300 Output: Gastric Drainage 300 Right Nare 300 Void Amount 1200 0 300 Stool 1350 200 550 Emesis 25 50 Other: Meal Dinner Percent of Meal Consumed 75% Feeding Ability Independent Urine Appearance Clear Urine Color Straw Pale Urine Odor Normal Normal Stool Size Large Stool Color Brown Brown Green Stool Consistency Liquid Liquid Watery Loose Neck Neck exam: Present full ROM; Absent lymphadenopathy and tenderness Respiratory Respiratory exam: Present normal respiratory exam and CTAB Cardiovascular Cardiovascular exam: Present normal rate and rhythm, RRR, +S1 and +S2; Absent JVD GI/Abdominal GI/Abdominal exam: Present soft, distended (Distention is significantly worsened since yesterday) and hyperactive bowel sounds; Absent organomegaly Additional comments: Stoma is patent and functioning normally Extremities Exam Extremities exam: Present normal inspection; Absent joint swelling Neurological Exam Neurological exam: Present alert, CN II-XII intact and oriented X3 Psychiatric Psychiatric exam: Present normal affect and normal mood A/P Assessment and plan (1) Primary chronic pseudo-obstruction of small intestine: Status: Acute (2) Nausea & vomiting: Status: Acute Qualifiers: Vomiting Intractability: non-intractable Vomiting type: unspecified Qualified Code(s): R11.2 - Nausea with vomiting, unspecified (3) Myasthenia gravis: Status: Chronic Comment: Prednisone dependent at 20 mg daily. (4) Polyglandular autoimmune syndrome: Status: Chronic (5) LA (obstructive sleep apnea): Status: Chronic Narrative A/P Narrative: Nasogastric decompression Hold regular diet for the time being Follow-up abdominal x-rays in the morning Probable small bowel follow-through in the morning Time Spent With Patient Time: Total time spent is greater than 50% in coordination of care (as documented) at patient's floor/unit and/or counseling patient:
--- NOTE | 2021-01-04 13:32 | Nephrology Progress Note ---
SUBJECTIVE Subjective Patient information: Note initiated : 01/04/21 at 1:30 pm Service Date, if different from initiated Date: [] Patient: Dayanna Guo 60 y/o F admitted on 12/27/20 for weakness, cool clammy. Chief Complaint: [Nausea and weakness] Seen on morning rounds. She had a bad night with nausea. Currently changing her ileostomy appliance. KUB worse: The stomach and small bowel are now markedly dilated with multiple air-fluid levels. Findings suspicious for recurrent distal small bowel obstruction. No free air. Laboratory Tests 01/04/21 06:10 Sodium 142 Potassium 3.8 Chloride 104 Carbon Dioxide 20 L Anion Gap 18.0 H BUN 12 Creatinine 0.8 GFR Calculation 81 Glucose 214 H Calcium 7.3 L Phosphorus 2.5 Magnesium 1.8 AST 17 Lactate Dehydrogenase 345 H Albumin 3.5 Vital Signs Temp Pulse Resp BP Pulse Ox 01/04/21 10:00 119/66 01/04/21 08:35 36.3 C 110 H 20 160/86 94 01/04/21 06:25 20 01/04/21 03:10 36.4 C 112 H 20 155/85 01/03/21 23:35 36.6 C 99 H 14 141/86 97 01/03/21 19:32 36.7 C 75 12 119/65 98 01/03/21 16:00 36.3 C 85 20 113/71 98 Intake and Output 01/03/21 01/04/21 01/04/21 21:59 05:59 13:59 Intake Total 1954.5455 1320 500 Output Total 2575 250 1150 Balance -620.4545 1070 -650 Intake: IV 754.5455 1020 500 Potassium Chloride 40 Meq In 1020 Sodium Chloride 0.9% 1,000 ml @ 84 mls/hr IV .Q12H9M [facility] Rx#: [id number] Potassium Phosphate 20 Meq In 254.5455 Dextrose 5% in Water 250 ml @ 127.273 mls/hr IV ONCE ONE Rx#: [id number] Vancomycin 1,500 mg In Sodium 500 500 Chloride 0.9% 500 ml @ 333.3 mls/hr IV Q24H [facility] Rx#: [id number] Oral 1200 300 Output: Gastric Drainage 300 Right Nare 300 Void Amount 1200 0 300 Stool 1350 200 550 Emesis 25 50 Other: Meal Dinner Percent of Meal Consumed 75% Feeding Ability Independent Urine Appearance Clear Urine Color Straw Pale Urine Odor Normal Normal Stool Size Large Stool Color Brown Brown Green Stool Consistency Liquid Liquid Watery Loose Weight 105.868 kg Current Medications Acetaminophen (Acetaminophen 325 Mg Tablet) 650 mg PO Q4-6HP PRN; Protocol PRN Reason: Per Pain Protocol/Fever > 101 Hydrocodone Bitart/Acetaminophen (Hydrocodone/Apap 5/325mg Tablet) 0 tab PO Q8HP PRN; Protocol PRN Reason: Per Pain Protocol Last Admin: 01/03/21 16:50 Dose: 2 tab Documented by: Apixaban (Apixaban 5 Mg Tablet) 5 mg PO BID [facility] Last Admin: 01/04/21 08:52 Dose: Not Given Documented by: Citric Acid/Sodium Citrate (Citric Acid/Sodium Citrate 15 Ml Oral.[place]) 15 ml PO TIDCC [facility] Last Admin: 01/04/21 11:59 Dose: Not Given Documented by: Cyclobenzaprine HCl (Cyclobenzaprine 10 Mg Tablet) 10 mg PO BIDP PRN PRN Reason: Spasms Last Admin: 12/30/20 17:12 Dose: 10 mg Documented by: Dextrose (Dextrose 50% 50 Ml Vial) 0 ml IV UD PRN PRN Reason: Hypoglycemia Last Admin: 01/02/21 08:15 Dose: 25 ml Documented by: Diagnostic Test (Pha) (Accu-Chek 1 Each Strip) 1 each FS ACHS [facility] Last Admin: 01/04/21 11:55 Dose: 1 each Documented by: Duloxetine HCl (Duloxetine 30 Mg Capsule) 30 mg PO BID [facility] Last Admin: 01/04/21 08:51 Dose: Not Given Documented by: Furosemide (Furosemide 20 Mg Tablet) 20 mg PO QDAY [facility] Last Admin: 01/04/21 08:52 Dose: Not Given Documented by: Gabapentin (Gabapentin 300 Mg Capsule) 300 mg PO TID [facility] Last Admin: 01/04/21 08:52 Dose: Not Given Documented by: Glucose (Dextrose 31 Gm Oral.Susp) 15 gm PO PRN PRN PRN Reason: Hypoglycemia Heparin Sodium (Porcine) (Heparin Flush 10 Units/Ml 5 Ml Syringe) 5 ml IV Q12 [facility] Last Admin: 01/04/21 08:50 Dose: Not Given Documented by: Hydralazine HCl (Hydralazine 20 Mg/Ml Vial) 10 mg IV Q4-6HP PRN PRN Reason: Hypertension Last Admin: 01/04/21 09:19 Dose: 10 mg Documented by: Hydromorphone HCl (Hydromorphone 0.5 Mg/0.5 Ml Syringe) 0.25 - 0.5 mg IV Q3HP PRN; Protocol PRN Reason: Per Pain Protocol Last Admin: 01/04/21 13:19 Dose: 0.5 mg Documented by: Magnesium Sulfate (Magnesium Sulfate) 2 gm in 50 mls @ 50 mls/hr IV UD PRN PRN Reason: MG = or < 1.7 Last Infusion: 01/02/21 15:51 Dose: Infused Documented by: Potassium Chloride 40 meq/ (Dextrose) 520 mls @ 130 mls/hr IV UD PRN PRN Reason: K+ = or < 3.5 Acetaminophen (Ofirmev) 650 mg in 65 mls @ 130 mls/hr IV Q6HP PRN; Protocol PRN Reason: Per Pain Protocol/Fever > 101 Vancomycin HCl 1,500 mg/ (Sodium Chloride) 500 mls @ 333.3 mls/hr IV Q24H [facility] Last Infusion: 01/04/21 11:35 Dose: Infused Documented by: Insulin Glargine (Insulin Glargine, Human 1 Unit/0.01 Ml) 5 unit SQ BID [facility] Last Admin: 01/04/21 08:56 Dose: 5 units Documented by: Insulin Human Lispro (Insulin Lispro 1 Unit/0.01 Ml Unit) 0 unit SQ ACHS [facility]; Protocol Last Admin: 01/04/21 11:55 Dose: 3 units Documented by: Iron Carb/Multivit/[place]/Folic Acid (Multivit,Ther Iron,Ca,Fa & Min 1 Tablet) 1 tab PO DAILY [facility] Last Admin: 01/04/21 08:52 Dose: Not Given Documented by: Levothyroxine Sodium (Levothyroxine 125 Mcg Tablet) 250 mcg PO QAMAC [facility] Last Admin: 01/04/21 06:57 Dose: Not Given Documented by: Magnesium Oxide (Magnesium Oxide 400 Mg Tablet) 400 mg PO BID [facility] Last Admin: 01/04/21 08:52 Dose: Not Given Documented by: Melatonin (Melatonin 3 Mg Tablet) 3 mg PO HSP PRN PRN Reason: Insomnia Metoprolol Succinate (Metoprolol Succinate 25 Mg Tab.Xl.24h) 25 mg PO DAILY [facility] Last Admin: 01/04/21 09:08 Dose: Not Given Documented by: Metoprolol Tartrate (Metoprolol Tartrate 5 Mg/5 Ml Vial) 5 mg IV Q5M PRN PRN Reason: Heart Rate > 140 bpm Octreotide Acetate (Octreotide Acetate 100 Mcg/Ml Vial) 100 mcg SQ TID [facility] Last Admin: 01/04/21 09:08 Dose: 100 mcg Documented by: Ondansetron HCl (Ondansetron 4 Mg Odt Tablet) 4 mg SL Q4HP PRN PRN Reason: Nausea Last Admin: 12/30/20 22:39 Dose: 4 mg Documented by: Ondansetron HCl (Ondansetron 4 Mg/2 Ml Vial) 4 mg IV Q4-6HP PRN; Protocol PRN Reason: Nausea And Vomiting Last Admin: 01/04/21 12:03 Dose: 4 mg Documented by: Polyethylene Glycol (Polyethylene Glycol 3350 17 Gm Packet) 17 gm PO DAILYP PRN PRN Reason: Constipation Prednisone (Prednisone 20 Mg Tablet) 20 mg PO [facility] Last Admin: 01/04/21 06:57 Dose: Not Given Documented by: Promethazine HCl (Promethazine 25 Mg Tablet) 25 mg PO Q6HP PRN PRN Reason: Nausea Last Admin: 01/03/21 01:24 Dose: 25 mg Documented by: Pyridostigmine [place] (Pyridostigmine [place] 10 Mg/2 Ml Ampul) 10 mg IM Q6H [facility] Last Admin: 01/04/21 13:19 Dose: 10 mg Documented by: Simethicone (Simethicone 80 Mg Tab.Chew) 160 mg [facility] PRN PRN Reason: Dyspepsia Last Admin: 01/03/21 22:34 Dose: 160 mg Documented by: Sodium Chloride (0.9 % Sodium Chloride 10 Ml Syringe) 10 ml IV Q12 [facility] Last Admin: 01/04/21 08:51 Dose: Not Given Documented by: Sodium Chloride (0.9 % Sodium Chloride 10 Ml Syringe) 10 ml IV Q8 [facility] Last Admin: 01/04/21 06:00 Dose: Not Given Documented by: Thiamine HCl (Thiamine 100 Mg Tablet) 100 mg PO DAILY [facility] Last Admin: 01/04/21 09:20 Dose: Not Given Documented by: Vancomycin HCl (Vancomycin Per Pharmacy) 1 order IV UD [facility] This is an impossible situation...Underlying GI dysmotility and prior bowel surgery, medications that decrease GI motility (narcotics) and those that promote GI motility (Physostigmine) and now Octreotide are causing alterations in pseudoobstruction and increased GI volume losses. Additionally, high output ostomy losses are now contributing to fluid and electrolyte/acid base issues. Until her GI motility is optimized, it would be better to replace electrolytes IV as GI absorption is unreliable/unpredictable. Principal diagnosis: Chronic intestinal pseudoobstruction; high output ileostomy Constitutional Vitals: Vital Signs Temp Pulse Resp BP Pulse Ox 36.3 C 110 H 20 119/66 94 01/04/21 08:35 01/04/21 08:35 01/04/21 08:35 01/04/21 10:00 01/04/21 08:35 Period Temp Pulse Resp BP Sys/Archuleta Pulse Ox Last 24 Hr 36.3 C-36.7 C 75-112 12-20 113-160/65-86 94-98 Intake and Output 01/03/21 01/04/21 01/04/21 21:59 05:59 13:59 Intake Total 1954.5455 1320 500 Output Total 2575 250 1150 Balance -620.4545 1070 -650 Weight 105.868 kg Intake & Output: Intake & Output 01/03/21 01/04/21 01/04/21 21:59 05:59 13:59 Intake Total 1954.5455 1320 500 Output Total 2575 250 1150 Balance -620.4545 1070 -650 Weight 105.868 kg Intake: IV 754.5455 1020 500 Potassium Chloride 40 Meq In 1020 Sodium Chloride 0.9% 1,000 ml @ 84 mls/hr IV .Q12H9M [facility] Rx#: [id number] Potassium Phosphate 20 Meq In 254.5455 Dextrose 5% in Water 250 ml @ 127.273 mls/hr IV ONCE ONE Rx#: [id number] Vancomycin 1,500 mg In Sodium 500 500 Chloride 0.9% 500 ml @ 333.3 mls/hr IV Q24H [facility] Rx#: [id number] Oral 1200 300 Output: Gastric Drainage 300 Right Nare 300 Void Amount 1200 0 300 Stool 1350 200 550 Emesis 25 50 Other: Meal Dinner Percent of Meal Consumed 75% Feeding Ability Independent Urine Appearance Clear Urine Color Straw Pale Urine Odor Normal Normal Stool Size Large Stool Color Brown Brown Green Stool Consistency Liquid Liquid Watery Loose General appearance: cooperative, mild distress and morbidly obese Head Head exam: Present normal inspection Eye Eye exam: Present EOMI, normal appearance and PERRL; Absent periorbital swelling and scleral icterus Pupils: Present PERRL ENT ENT exam: Present mucous membranes moist Neck Neck exam: Present full ROM and normal inspection; Absent meningismus Respiratory Respiratory exam: Present normal respiratory exam and CTAB Cardiovascular Cardiovascular exam: Present normal rate and rhythm, RRR, +S1 and +S2; Absent gallop GI/Abdominal GI/Abdominal exam: Present distended and hyperactive bowel sounds Additional comments: RLQ ileostomy Neurological Exam Neurological exam: Present CN II-XII intact and oriented X3 Psychiatric Psychiatric exam: Present normal affect Skin Skin exam: Present dry and normal color; Absent mottled, pallor and petechiae A/P Assessment and plan (1) Metabolic acidosis with normal anion gap and failure of bicarbonate regeneration: Status: Acute (2) Hyponatremia with decreased serum osmolality: Status: Acute (3) Hypophosphatemia: Status: Acute (4) Hypocalcemia: Status: Resolved (5) Chronic intestinal pseudo-obstruction: Status: Chronic (6) Myasthenia gravis: Status: Chronic Comment: Prednisone dependent at 20 mg daily. (7) Chronic, continuous use of opioids: Status: Chronic (8) Ileostomy status: Status: Acute Narrative A/P Narrative: 1. GI Bicarb losses are the cause based on maximally acidified urine (ie: no urinary bicarb loss) 2. Serial BMP and daily mag and phos 3. Check TSH was acceptable or actually supressed => decrease 50% (or 75% if using IV synthroid) 4. Reducing GI fluid and bicarb losses will be fatima. (Physostigminine and octreotide could help resolve ileus but the octreotide does help reduce bicarb loss) 5. Replace K, PO4, Mg and Ca losses IV till GI tract settles down losses 6. Calcium is low now due to biphosphonate therapy earlier and IV PO4 currently Calcitriolol is risky if she gets dehydrated again as she had reached a level of 16-18 last hospitalization. I favor Vit D3 and Ca supplement at discharge Needs Vit D levels, PTH level 7. I suspect she will have to be treated with a combination of oral potassium citrate (which would kill 2 birds with 1 stone), or KCl elixir and Bicitra solution. Her bowel motility issues make using formulations such as K-Dur lesson in futility 8. Suspect she will need Neutra-Phos K as an outpatient as well. 9. At a minimum she will need once or week labs upon discharge 10. For now IV electrolyte riders 11. Trial off narcotics and use IV tylenol 12. Measure ileostomy pH => if elevated try stopping PPi 13. Check gastrin level Time Spent With Patient Time: Total time spent is greater than 50% in coordination of care (as documented) at patient's floor/unit and/or counseling patient: Total time spent with greater than 50% in coordination of care (as documented) at patient's floor/unit and/or counseling patient:: Greater than 35 minutes
[2021-01-04] MEDS ORDERED: PROMETHAZINE 25 MG/ML VIAL IV PRN (18:01)
[2021-01-04] MEDS ORDERED: POTASSIUM CHLORIDE 20 MEQ, MAGNESIUM SULFATE 16.24 MEQ, THIAMINE 100 MG, MVI, ADULT NO.... IV SCH (18:15)
[2021-01-04] MEDS: ACETAMINOPHEN 1,000 MG/100 ML BAG IV PRN (20:00)
[2021-01-04] MEDS ORDERED: MAGNESIUM SULFATE 8.12 MEQ/2 ML VIAL ONE (20:29)
[2021-01-04] MEDS ORDERED: MVI, ADULT NO.4 WITH VIT K 10 ML VIAL IV ONE (20:29)
[2021-01-04] MEDS ORDERED: POTASSIUM CHLORIDE 20 MEQ/10 ML VIAL IV ONE (20:29)
[2021-01-04] MEDS ORDERED: THIAMINE 100 MG/ML VIAL ONE (20:29)
[2021-01-05] MEDS: PYRIDOSTIGMINE BROMIDE 10 MG/2 ML AMPUL IM SCH ×4 (01:05→20:59)
[2021-01-05] MEDS: ACETAMINOPHEN 1,000 MG/100 ML BAG IV PRN ×2 (06:10→16:59)
[2021-01-05] MEDS: 0.9 % SODIUM CHLORIDE 10 ML SYRINGE IV SCH ×5 (06:13→21:11)
[2021-01-05] MEDS: LEVOTHYROXINE 100 MCG VIAL IV SCH (07:15)
--- NOTE | 2021-01-05 07:41 | Internal Med Progress Note ---
SUBJECTIVE Subjective Patient information: Note initiated : 01/05/21 at 7:38 am Service Date, if different from initiated Date: [] Patient: Dayanna Guo a 60 y/o F admitted on 12/27/20 for weakness, cool clammy. Chief Complaint: [] Principal diagnosis: Chronic intestinal pseudoobstruction; high output ileostomy Interval history: Principal diagnosis: Chronic intestinal pseudoobstruction; high output ileostomy Interval history: Interval history: Ms. Guo is a 60 year old F with a history of recurrent bowel obstruction and was recently discharged December 20 to snf facility. Patient was doing well however over the last 3 days nursing staff has noticed increasing weakness/cough/fatigue malaise and inability to function. She in all probability was exposed to sick contacts. She denies headache or stacie tophobia endorses to weakness myalgia and joint aches. She denies increased ostomy output or dysuria, abdominal pain or distention. EMS was called after facility staff noticed her increasing lethargic and confused. Initial work-up was consistent with severe sepsis elevated white count/lactic acidosis without a clear source. Cultures were drawn patient was started on antibiotic coverage. Calcium at 18 with severe volume depletion. Patient was started on crystalloids. Notably she was discharged on diuretics after recent hospitalization. subsequently nephrology was consulted in light of hyp ercalcemia/potassium 5.9/acute kidney injury with a creatinine of 1.4. Per nephrology patient was started on crystalloid at 200 cc/bicarbonate drip/Kayexalate. Subsequently hospitalist service was consulted for admission At the time of evaluation patient is very lethargic drowsy and unable to open her eyes. She is barely able to verbalize and provide history. Most of history was obtained from review of medical records and ER physician. No family members present. 12/28-patient doing well. Calcium down to 12 from 18. More lucid alert. Bisphosphonates given today. Fever defervesced. White count downtrending from 19 point 8K to 12.4. No obvious source of infection. Case discussed with nephrology. Potassium down to 4.2 post Kayexalate. Ostomy output stable. No evidence of bowel obstruction. Continue existing treatment/crystalloids and supportive management with diet and therapies. Possible transition to SNF in 48 hours. [id number] cocci in blood culture. Serratia on urine culture. Antibiotic escalated to cefepime, continue vancomycin, surveillance cultures, ec hocardiogram to rule out endocarditis. However clinically improving and improved electrolytes, creatinine 0.8, potassium 3.8, calcium down to 9.5 status post bisphosphonate. No overnight fever chills. Continue close monitoring. 12/30-patient complains of excessive ostomy output throughout the night. Could not sleep. However electrolytes improved with calcium 9.7. GPC bacteremia ID consulted. ID recommends discontinuing cefepime as unlikely Serratia as a cause of sepsis. Continue vancomycin. Echocardiogram EF 70%. No valvular vegetations noted on echocardiogram. Surgery consulted. Two-view abdominal imaging reveals nonspecific bowel gas pattern. Continue anticoagulation for PEs 12/31-patient doing better. Improved ostomy output on cholestyramine/lower dose of pyridostigmine. ID recommends continuation of vancomycin for 2 weeks as a port salvage treatment for bacteremia. Blood cultures coag negative staph. White count 11.2, phosphorus improved to 2.7 from 1.7. Tolerating diet. Ongoing therapies. 01/01-patient not feeling well this morning, persistent nausea/abdominal pain and lethargic. On crystalloids. Bicarb down to 10. Nephrology consulted. Also surgery on board for possible bowel obstruction. Continuing vancomycin for enterococcal bacteremia per ID. Worsening white count at 14.1, 01/02 Patient had low blood sugar this morning. Stomach achiness. Acidosis improved 01/03 Patient states she has nausea. A little bit of vomiting yesterday. Ostomy outp ut thicker today. 01/04 Patient feeling sick. States she is bloated and has nausea. X-ray by surgeon pending. 01/05 Feeling better today. Abdominal pain significantly improved. Slept well. Review of Systems: denies headache/fever/chills/chest pain/cough/dyspnea/diarrhea. Otherwise see above. Constitutional Vitals: Vital Signs Temp Pulse Resp BP Pulse Ox 97.9 F 101 H 16 131/74 95 01/05/21 04:48 01/05/21 04:48 01/05/21 04:48 01/05/21 04:48 01/05/21 04:48 Period Temp Pulse Resp BP Sys/Archuleta Pulse Ox Last 24 Hr 97.3 F-99.5 F 101-137 119-160/66-88 90-97 Intake and Output 01/04/21 01/05/21 01/05/21 21:59 05:59 13:59 Intake Total 100 650 Output Total 1775 1050 250 Balance -1675 -400 -250 Weight 104.009 kg Intake & Output: Intake & Output 01/04/21 01/05/21 01/05/21 21:59 05:59 13:59 Intake Total 100 650 Output Total 1775 1050 250 Balance -1675 -400 -250 Weight 104.009 kg Intake: IV 100 Oral 650 Output: Gastric Drainage 900 650 250 Left Nare 900 650 250 Void Amount 300 Stool 875 100 Exam: General: Alert, Awake, No acute Distress, obese Eyes/N/T: EOMI, Head/Neck: neck supple, CV: RRR, No murmurs, Pulm: Clear b/l, no wheezing/rhonchi/rales Abd: soft, nontender, +BS x4, ostomy Ext: no clubbing/cyanosis, mild b/l LE mild edema Neuro: Alert, no focal deficits, moves all extremities, Skin: warm/dry OBJ DATA Labs CBC & Chem 7: 01/02/21 05:18 01/04/21 06:10 Labs: Abnormal Lab Results 01/04/21 01/03/21 01/03/21 06:10 06:03 06:03 Potassium 3.1 L Carbon Dioxide 20 L 20 L Anion Gap 18.0 H Glucose 214 H 135 H Calcium 7.3 L 6.1 L Phosphorus 1.8 L Lactate Dehydrogenase 345 H Triglycerides 396 H Meds: Medications Apixaban (Apixaban 5 Mg Tablet) 5 mg PO BID [facility] Last Admin: 01/04/21 21:34 Dose: 5 mg Documented by: Dextrose (Dextrose 50% 50 Ml Vial) 0 ml IV UD PRN PRN Reason: Hypoglycemia Last Admin: 01/02/21 08:15 Dose: 25 ml Documented by: Diagnostic Test (Pha) (Accu-Chek 1 Each Strip) 1 each FS ACHS [facility] Last Admin: 01/04/21 21:46 Dose: 1 each Documented by: Duloxetine HCl (Duloxetine 30 Mg Capsule) 30 mg PO BID [facility] Last Admin: 01/04/21 21:34 Dose: 30 mg Documented by: Glucose (Dextrose 31 Gm Oral.Susp) 15 gm PO PRN PRN PRN Reason: Hypoglycemia Heparin Sodium (Porcine) (Heparin Flush 10 Units/Ml 5 Ml Syringe) 5 ml IV Q12 [facility] Last Admin: 01/04/21 21:56 Dose: Not Given Documented by: Hydralazine HCl (Hydralazine 20 Mg/Ml Vial) 10 mg IV Q4-6HP PRN PRN Reason: Hypertension Last Admin: 01/04/21 09:19 Dose: 10 mg Documented by: Magnesium Sulfate (Magnesium Sulfate) 2 gm in 50 mls @ 50 mls/hr IV UD PRN PRN Reason: MG = or < 1.7 Last Infusion: 01/02/21 15:51 Dose: Infused Documented by: Potassium Chloride 40 meq/ (Dextrose) 520 mls @ 130 mls/hr IV UD PRN PRN Reason: K+ = or < 3.5 Vancomycin HCl 1,500 mg/ (Sodium Chloride) 500 mls @ 333.3 mls/hr IV Q24H [facility] Last Infusion: 01/04/21 11:35 Dose: Infused Documented by: Acetaminophen (Ofirmev) 1,000 mg in 100 mls @ 200 mls/hr IV Q8HP PRN; Protocol PRN Reason: Pain Last Admin: 01/05/21 06:10 Dose: 200 mls/hr Documented by: Insulin Glargine (Insulin Glargine, Human 1 Unit/0.01 Ml) 5 unit SQ BID [facility] Last Admin: 01/04/21 21:37 Dose: 5 units Documented by: Insulin Human Lispro (Insulin Lispro 1 Unit/0.01 Ml Unit) 0 unit SQ ACHS [facility]; Protocol Last Admin: 01/04/21 21:56 Dose: Not Given Documented by: Levothyroxine Sodium (Levothyroxine 100 Mcg Vial) 75 mcg IV QAMAC [facility] Last Admin: 01/05/21 07:15 Dose: 75 mcg Documented by: Melatonin (Melatonin 3 Mg Tablet) 3 mg PO HSP PRN PRN Reason: Insomnia Methylprednisolone Sodium Succinate (Methylprednisolone Sod Succ 40 Mg/Ml Vial) 10 mg IV Q12 [facility] Metoprolol Tartrate (Metoprolol Tartrate 5 Mg/5 Ml Vial) 5 mg IV Q5M PRN PRN Reason: Heart Rate > 140 bpm Octreotide Acetate (Octreotide Acetate 100 Mcg/Ml Vial) 100 mcg SQ TID [facility] Last Admin: 01/04/21 21:36 Dose: 100 mcg Documented by: Polyethylene Glycol (Polyethylene Glycol 3350 17 Gm Packet) 17 gm PO DAILYP PRN PRN Reason: Constipation Promethazine HCl (Promethazine 25 Mg/Ml Vial) 12.5 mg IV Q6HP PRN PRN Reason: Nausea And Vomiting Pyridostigmine [place] (Pyridostigmine [place] 10 Mg/2 Ml Ampul) 10 mg IM Q6H [facility] Last Admin: 01/05/21 01:05 Dose: 10 mg Documented by: Sodium Chloride (0.9 % Sodium Chloride 10 Ml Syringe) 10 ml IV Q12 [facility] Last Admin: 01/04/21 21:56 Dose: Not Given Documented by: Sodium Chloride (0.9 % Sodium Chloride 10 Ml Syringe) 10 ml IV Q8 [facility] Last Admin: 01/05/21 06:13 Dose: Not Given Documented by: Vancomycin HCl (Vancomycin Per Pharmacy) 1 order IV UD [facility] A/P Narrative A/P Narrative: A: *Nausea/vomiting/abdominal pain: Suspicious for bowel obstruction or ongoing chronic abdominal issues *History of recurrent SBO follows up with Dr. Currie surgery. *Mixed gap acidosis: excessive bicarbonate loss from ostomy. -improved *High-ostomy output: -per surgery *multiple Electrolyte imbalance: improved *Acute kidney injury: resolved *Severe sepsis with evidence of endorgan dysfunction: Clinically resolved *Coag negative staph bacteremia: surveillance cultures negative so far/echocardiogram no evidence of valvular vegetation -ID recommends 2 weeks vancomycin as a port salvage treatment. 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 Awaiting final I&S to deescalate if possible -Continue anticoagulation for PE -home calcium supp initially held, will defer final vit D/Calcium regimen to Nephrology -cont home prednisone/BB -continue basal (decreased for low BG), metformin held -PT as tolerated -Discharge planning to SNF once clinically stable -ppx: apixaban Time Spent With Patient Time: Total time spent is greater than 50% in coordination of care (as documented) at patient's floor/unit and/or counseling patient:
--- NOTE | 2021-01-05 07:54 | XRay Report ---
CLINICAL INFORMATION: FOLLOW -UP OF SMALL BOWEL OBSTRUCTION COMPARISON: 01/04/2021 FINDINGS: NG tube is been placed tip overlies the gastric antrum. Stomach and proximal small bowel are moderately decompressed. Small amount of air remaining in the mid small bowel. No free air, soft tissue mass or organomegaly. IMPRESSION: Satisfactory placement of NG tube with good decompression of the GI tract Interpreted and Authenticated by: All Lundberg 01/05/21
[2021-01-05] MEDS: INSULIN LISPRO 1 UNIT/0.01 ML UNIT SQ SCH ×4 (08:06→21:08)
--- NOTE | 2021-01-05 08:58 | Nephrology Progress Note ---
SUBJECTIVE Subjective Patient information: Note initiated : 01/05/21 at 8:47 am Service Date, if different from initiated Date: [] Patient: Dayanna Guo 60 y/o F admitted on 12/27/20 for weakness, cool clammy. Chief Complaint: [] Recurrent pseudoobstruction, yesterday required NG tube placement and DWAIN's markedly negative over the past 24 hours. IMPRESSION: Satisfactory placement of NG tube with good decompression of the GI tract Laboratory Tests 01/05/21 01/05/21 01/05/21 08:09 08:10 08:10 Sodium 136 Chloride 109 H Carbon Dioxide 17 L Anion Gap 10.0 BUN 12 Creatinine 0.9 GFR Calculation 70 Glucose 128 H Uric Acid 6.2 Calcium 6.3 L Phosphorus 1.9 L Magnesium 2.1 Total Bilirubin < 0.2 Total Protein 5.5 L Albumin 2.7 L Triglycerides 314 H 25-OH Vitamin D Total 12.71 L 1,25 Dihydroxy Vit D2 Pending 1,25 Dihydroxy Vit D3 Pending TSH 0.02 L Free T4 2.07 H Free T3 pg/mL 2.0 PTH Intact < 1.2 L Vital Signs Temp Pulse Resp BP BP Pulse Ox 01/05/21 08:00 36.4 C 84 16 116/69 97 01/05/21 04:48 36.6 C 101 H 16 131/74 95 01/04/21 23:28 37.5 C H 125 H 18 123/70 94 01/04/21 19:38 36.4 C 133 H 18 119/88 90 01/04/21 15:56 36.3 C 126 H 20 147/68 96 01/04/21 12:00 36.5 C 137 H 20 125/72 97 01/04/21 10:00 119/66 Intake and Output 01/04/21 01/05/21 01/05/21 21:59 05:59 13:59 Intake Total 100 650 Output Total 1775 1050 250 Balance -1675 -400 -250 Intake: IV 100 Oral 650 Output: Gastric Drainage 900 650 250 Left Nare 900 650 250 Void Amount 300 Stool 875 100 Other: Weight 104.009 kg Current Medications Apixaban (Apixaban 5 Mg Tablet) 5 mg PO BID [facility] Last Admin: 01/04/21 21:34 Dose: 5 mg Documented by: Dextrose (Dextrose 50% 50 Ml Vial) 0 ml IV UD PRN PRN Reason: Hypoglycemia Last Admin: 01/02/21 08:15 Dose: 25 ml Documented by: Diagnostic Test (Pha) (Accu-Chek 1 Each Strip) 1 each FS ACHS [facility] Last Admin: 01/05/21 08:06 Dose: 1 each Documented by: Duloxetine HCl (Duloxetine 30 Mg Capsule) 30 mg PO BID [facility] Last Admin: 01/04/21 21:34 Dose: 30 mg Documented by: Glucose (Dextrose 31 Gm Oral.Susp) 15 gm PO PRN PRN PRN Reason: Hypoglycemia Heparin Sodium (Porcine) (Heparin Flush 10 Units/Ml 5 Ml Syringe) 5 ml IV Q12 [facility] Last Admin: 01/05/21 08:29 Dose: Not Given Documented by: Hydralazine HCl (Hydralazine 20 Mg/Ml Vial) 10 mg IV Q4-6HP PRN PRN Reason: Hypertension Last Admin: 01/04/21 09:19 Dose: 10 mg Documented by: Magnesium Sulfate (Magnesium Sulfate) 2 gm in 50 mls @ 50 mls/hr IV UD PRN PRN Reason: MG = or < 1.7 Last Infusion: 01/02/21 15:51 Dose: Infused Documented by: Potassium Chloride 40 meq/ (Dextrose) 520 mls @ 130 mls/hr IV UD PRN PRN Reason: K+ = or < 3.5 Vancomycin HCl 1,500 mg/ (Sodium Chloride) 500 mls @ 333.3 mls/hr IV Q24H [facility] Last Infusion: 01/04/21 11:35 Dose: Infused Documented by: Acetaminophen (Ofirmev) 1,000 mg in 100 mls @ 200 mls/hr IV Q8HP PRN; Protocol PRN Reason: Pain Last Admin: 01/05/21 06:10 Dose: 200 mls/hr Documented by: Insulin Glargine (Insulin Glargine, Human 1 Unit/0.01 Ml) 5 unit SQ BID [facility] Last Admin: 01/04/21 21:37 Dose: 5 units Documented by: Insulin Human Lispro (Insulin Lispro 1 Unit/0.01 Ml Unit) 0 unit SQ [facility]; Protocol Last Admin: 01/05/21 08:06 Dose: Not Given Documented by: Levothyroxine Sodium (Levothyroxine 100 Mcg Vial) 75 mcg IV QAMAC [facility] Last Admin: 01/05/21 07:15 Dose: 75 mcg Documented by: Melatonin (Melatonin 3 Mg Tablet) 3 mg PO HSP PRN PRN Reason: Insomnia Methylprednisolone Sodium Succinate (Methylprednisolone Sod Succ 40 Mg/Ml Vial) 10 mg IV Q12 [facility] Metoprolol Tartrate (Metoprolol Tartrate 5 Mg/5 Ml Vial) 5 mg IV Q5M PRN PRN Reason: Heart Rate > 140 bpm Octreotide Acetate (Octreotide Acetate 100 Mcg/Ml Vial) 100 mcg SQ TID [facility] Last Admin: 01/04/21 21:36 Dose: 100 mcg Documented by: Polyethylene Glycol (Polyethylene Glycol 3350 17 Gm Packet) 17 gm PO DAILYP PRN PRN Reason: Constipation Promethazine HCl (Promethazine 25 Mg/Ml Vial) 12.5 mg IV Q6HP PRN PRN Reason: Nausea And Vomiting Pyridostigmine [place] (Pyridostigmine [place] 10 Mg/2 Ml Ampul) 10 mg IM Q6H [facility] Last Admin: 01/05/21 08:07 Dose: 10 mg Documented by: Sodium Chloride (0.9 % Sodium Chloride 10 Ml Syringe) 10 ml IV Q12 [facility] Last Admin: 01/04/21 21:56 Dose: Not Given Documented by: Sodium Chloride (0.9 % Sodium Chloride 10 Ml Syringe) 10 ml IV Q8 [facility] Last Admin: 01/05/21 06:13 Dose: Not Given Documented by: Vancomycin HCl (Vancomycin Per Pharmacy) 1 order IV [facility] Principal diagnosis: Chronic intestinal pseudoobstruction; high output ileostomy Constitutional Vitals: Vital Signs Temp Pulse Resp BP Pulse Ox 36.4 C 84 16 116/69 97 01/05/21 08:00 01/05/21 08:00 01/05/21 08:00 01/05/21 08:00 01/05/21 08:00 Period Temp Pulse Resp BP Sys/Archuleta Pulse Ox Last 24 Hr 36.3 C-37.5 C 84-137 16-20 116-147/66-88 90-97 Intake and Output 01/04/21 01/05/21 01/05/21 21:59 05:59 13:59 Intake Total 100 650 Output Total 1775 1050 250 Balance -1675 -400 -250 Weight 104.009 kg Intake & Output: Intake & Output 01/04/21 01/05/21 01/05/21 21:59 05:59 13:59 Intake Total 100 650 Output Total 1775 1050 250 Balance -1675 -400 -250 Weight 104.009 kg Intake: IV 100 Oral 650 Output: Gastric Drainage 900 650 250 Left Nare 900 650 250 Void Amount 300 Stool 875 100 A/P Time Spent With Patient Time: Total time spent is greater than 50% in coordination of care (as documented) at patient's floor/unit and/or counseling patient:
[2021-01-05] MEDS: DULoxetine 30 MG CAPSULE PO SCH ×2 (09:08→21:07)
[2021-01-05] MEDS: APIXABAN 5 MG TABLET PO SCH ×2 (09:08→21:07)
[2021-01-05] MEDS: INSULIN GLARGINE, HUMAN 1 UNIT/0.01 ML SQ SCH ×2 (09:11→21:08)
[2021-01-05] MEDS: OCTREOTIDE ACETATE 100 MCG/ML VIAL SQ SCH ×3 (09:21→21:18)
[2021-01-05 09:28] LABS: ALT/SGPT 13 U/L (<40); AST/SGOT 13 U/L (<32); Albumin 2.8 gm/dL (3.2-5.2); Alkaline Phosphatase 90 U/L (39-117); Bilirubin,Direct < 0.2 mg/dL (0-0.3); Bilirubin,Total < 0.2 mg/dL (0.1-1.0); Blood Urea Nitrogen 10 mg/dL (6-20); Calcium 6.3 mg/dL (8.6-10.4); Carbon Dioxide 18 mmol/L (22-30); Chloride 106 mmol/L (96-108); Globulin 2.7 gm/dL (2.2-3.7); Glomerular Filtration Rate 70; Glucose 125 mg/dL (70-105); Lactate Dehydrogenase 299 U/L (135-225); Phosphorous 1.9 mg/dL (2.5-4.5); Triglycerides 314 mg/dL (<150); Uric Acid 6.2 mg/dL (2.5-8.0)
[2021-01-05 09:30] LABS: Basophils # (Auto) 0.05 K/mcL (0.00-0.20); Basophils % (Auto) 0.5 % (0.0-2.0); Eosinophils # (Auto) 0.29 K/mcL (0.00-0.70); Eosinophils % (Auto) 2.9 % (0.0-7.0); Hematocrit 33.2 % (36.0-48.0); Hemoglobin 10.2 g/dL (12.0-15.0); Lymphocytes # (Auto) 1.54 K/mcL (1.50-4.80); Lymphocytes % (Auto) 15.3 % (15.0-49.0); Mean Cell Volume 95.7 fL (80.0-100.0); Mean Corpuscular HGB Conc 30.7 g/dL (31.0-36.0); Mean Platelet Volume 9.5 fL (7.4-10.4); Monocytes # (Auto) 0.76 K/mcL (0.10-0.90); Monocytes % (Auto) 7.5 % (1.0-12.0); Neutrophils % (Auto) 73.8 % (38.0-78.0); Platelet Count 332 K/mcL (140-440); RBC 3.47 M/mcL (4.00-5.20); Red Cell Distribution Width 15.4 % (11.5-14.5); WBC 10.1 K/mcL (4.5-11.0)
[2021-01-05 09:51] LABS: Albumin 2.7 gm/dL (3.2-5.2); Calcium 6.3 mg/dL (8.6-10.4); Free T4 (Free Thyroxine) 2.07 ng/dL (0.93-1.70); Phosphorous 1.9 mg/dL (2.5-4.5); Thyroid Stimulating Hormone 0.02 uIU/mL (0.27-5.01)
[2021-01-05 10:36] LABS: Parathyroid Hormone Intact-SO < 1.2 pg/mL (15-65)
[2021-01-05 13:08] LABS: Vitamin D 25 Hydroxy-SO 12.71 ng/mL (>30.00)
[2021-01-05] MEDS ORDERED: 0.9 % SODIUM CHLORIDE 1,000 ML IV SCH (13:45)
--- NOTE | 2021-01-05 13:46 | General Surgery Progress Note ---
SUBJECTIVE Subjective Patient information: Note initiated : 01/05/21 at 1:43 pm Service Date, if different from initiated Date: [] Patient: Dayanna Guo 60 y/o F admitted on 12/27/20 for weakness, cool clammy. Chief Complaint: [] Principal diagnosis: Chronic intestinal pseudoobstruction; high output ileostomy Interval history: Patient has improved overnight. She is evacuated most of her bowel gas and liquid. Nasogastric output is still increased but she has good output through her ostomy. Constitutional Vitals: Vital Signs Temp Pulse Resp BP Pulse Ox 97.5 F 84 16 116/69 97 01/05/21 08:00 01/05/21 08:00 01/05/21 08:00 01/05/21 08:00 01/05/21 08:00 Period Temp Pulse Resp BP Sys/Archuleta Pulse Ox Last 24 Hr 97.3 F-99.5 F 84-133 16-20 116-147/68-88 90-97 Intake and Output 01/04/21 01/05/21 01/05/21 21:59 05:59 13:59 Intake Total 100 650 Output Total 1775 1050 250 Balance -1675 -400 -250 Weight 229 lb 4.8 oz 229 lb 4.8 oz Patient Weight 01/06/21 05:59 Weight 229 lb 4.8 oz Intake & Output: Intake & Output 01/04/21 01/05/21 01/05/21 21:59 05:59 13:59 Intake Total 100 650 Output Total 1775 1050 250 Balance -1675 -400 -250 Weight 229 lb 4.8 oz 229 lb 4.8 oz Intake: IV 100 Oral 650 Output: Gastric Drainage 900 650 250 Left Nare 900 650 250 Void Amount 300 Stool 875 100 ENT ENT exam: Present mucous membranes moist Neck Neck exam: Present full ROM and normal inspection; Absent meningismus Respiratory Respiratory exam: Present normal respiratory exam and CTAB Cardiovascular Cardiovascular exam: Present normal rate and rhythm, RRR, +S1 and +S2; Absent gallop GI/Abdominal GI/Abdominal exam: Present distended and hyperactive bowel sounds Additional comments: RLQ ileostomy Extremities Exam Extremities exam: Present normal inspection; Absent joint swelling Neurological Exam Neurological exam: Present CN II-XII intact and oriented X3 Psychiatric Psychiatric exam: Present normal affect Skin Skin exam: Present dry and normal color; Absent mottled, pallor and petechiae A/P Assessment and plan (1) Ileostomy status: Status: Acute (2) Hyponatremia with decreased serum osmolality: Status: Acute (3) Hypophosphatemia: Status: Acute (4) Hypocalcemia: Status: Resolved (5) Chronic intestinal pseudo-obstruction: Status: Chronic (6) Myasthenia gravis: Status: Chronic Comment: Prednisone dependent at 20 mg daily. (7) Chronic, continuous use of opioids: Status: Chronic Narrative A/P Narrative: Clamp nasogastric tube Trial of clear liquids Check abdominal x-rays in the morning Time Spent With Patient Time: Total time spent is greater than 50% in coordination of care (as documented) at patient's floor/unit and/or counseling patient:
[2021-01-05] MEDS ORDERED: [UNRECOGNIZED DRUG - OTHER] IV SCH (14:00)
[2021-01-05] MEDS ORDERED: POTASSIUM CHLORIDE IV SCH (14:00)
[2021-01-05] MEDS ORDERED: SODIUM ACETATE IV SCH (14:00)
[2021-01-05] MEDS ORDERED: CALCIUM GLUCONATE IV SCH (14:00)
[2021-01-05] MEDS: [UNRECOGNIZED DRUG - OTHER] IV SCH (14:56)
[2021-01-05] MEDS: POTASSIUM CHLORIDE IV SCH (14:56)
[2021-01-05] MEDS: CALCIUM CHLORIDE IV SCH (14:56)
[2021-01-05] MEDS: SODIUM ACETATE IV SCH (14:56)
[2021-01-05 19:58] LABS: Albumin 2.8 gm/dL (3.2-5.2); Calcium 6.3 mg/dL (8.6-10.4); Phosphorous 1.8 mg/dL (2.5-4.5)
[2021-01-05] MEDS: methylPREDNISolone SOD SUCC 40 MG/ML VIAL IV SCH (21:10)
[2021-01-06] MEDS: CALCIUM CHLORIDE IV SCH (01:49)
[2021-01-06] MEDS: [UNRECOGNIZED DRUG - OTHER] IV SCH (01:49)
[2021-01-06] MEDS: POTASSIUM CHLORIDE IV SCH (01:49)
[2021-01-06] MEDS: SODIUM ACETATE IV SCH (01:49)
[2021-01-06] MEDS: PYRIDOSTIGMINE BROMIDE 10 MG/2 ML AMPUL IM SCH ×4 (01:49→19:15)
[2021-01-06] MEDS: ACETAMINOPHEN 1,000 MG/100 ML BAG IV PRN (02:34)
[2021-01-06] MEDS: 0.9 % SODIUM CHLORIDE 10 ML SYRINGE IV SCH ×5 (06:19→21:38)
[2021-01-06 06:49] LABS: ALT/SGPT 16 U/L (<40); AST/SGOT 13 U/L (<32); Albumin 2.7 gm/dL (3.2-5.2); Albumin/Globulin Ratio 1.2 (1.0-2.3); Alkaline Phosphatase 82 U/L (39-117); Bilirubin,Direct < 0.2 mg/dL (0-0.3); Bilirubin,Total < 0.2 mg/dL (0.1-1.0); Blood Urea Nitrogen 7 mg/dL (6-20); Carbon Dioxide 23 mmol/L (22-30); Chloride 106 mmol/L (96-108); Globulin 2.3 gm/dL (2.2-3.7); Glomerular Filtration Rate 81; Glucose 189 mg/dL (70-105); Lactate Dehydrogenase 256 U/L (135-225); Phosphorous 2.2 mg/dL (2.5-4.5); Triglycerides 185 mg/dL (<150); Uric Acid 6.1 mg/dL (2.5-8.0)
--- NOTE | 2021-01-06 07:32 | Nephrology Progress Note ---
SUBJECTIVE Subjective Patient information: Note initiated : 01/06/21 at 7:32 am Service Date, if different from initiated Date: [] Patient: Dayanna Guo 60 y/o F admitted on 12/27/20 for weakness, cool clammy. Chief Complaint: [Weakness nausea belly pain] Extensive past medical history undertaken today: 1. Myasthenia gravis was diagnosed in association with a thymoma that was removed at at [facility] 10 to 20 years ago. She has been on physostigmine and steroids with the lowest dose of prednisone being somewhere between 10 and 20 mg a day. She says her myasthenia is getting worse she feels when her ostomy output decreases. 2. She was diagnosed as hypothyroid I believe in early teens and may have presented with a goiter There is apparently a family history of thyroid issues At present her free T3 is normal, free T4 is elevated, and TSH is overly suppressed so her Synthroid dose was adjusted 3. She clearly has hypoparathyroidism as her PTH is nearly undetectable at the same time her calcium is low. She was initially on vitamin D and then switched to calcitriol. Will restart calcitriol and calcium supplementation The problem is her GI tract frequently limits absorption of oral medications due to obstruction and pseudoobstruction 4. There is no tissue biopsy to prove sarcoidosis, this is suspicion based on firm nodules that are on the arms in particular. 5. Polyglandular failure is a possibility though she lacks evidence of autoimmune adrenal disease, there is no nail or dental abnormalities, no mucocutaneous candidiasis, all of which 1 would expect if autoimmune hypoparathyroidism were lumped into polyglandular failure type I. The hypoparat hyroidism could be due to an autoimmune process separate from polyglandular failure type I, a genetic defect, or even a gain of function mutation of the calcium sensing protein which would shot off parathyroid release from the parathyroid gland. 6. In any case need to restart calcitriol and calcium supplementation. Recombinant PTH is a possibility as well. 7. Small intestine pseudoobstruction is in conjunction with mechanical small bowel obstruction and she has had numerous lysis adhesion procedure the past. Mestinon would be contraindicated in the presence of mechanical bowel but appar ently that is not the case this time. Octreotide was added to try and help decrease the amount of bicarbonate loss through the GI tract and has been used for pseudoobstruction in children. 8. Not sure if Linzess has anything to offer but if we are sure there is not a mechanical obstruction it could be tried to promote GI motility Laboratory Tests 01/05/21 01/05/21 01/06/21 08:10 08:10 05:03 Sodium 135 Potassium 4.8 Chloride 106 Carbon Dioxide 23 Anion Gap 6.0 L BUN 7 Creatinine 0.8 GFR Calculation 81 Glucose 189 H Uric Acid 6.1 Calcium 7.0 L Phosphorus 2.2 L Magnesium 1.7 Total Bilirubin < 0.2 Direct Bilirubin < 0.2 GGT 18 AST 13 ALT 16 Alkaline Phosphatase 82 Lactate Dehydrogenase 256 H Total Protein 5.0 L Albumin 2.7 L 25-OH Vitamin D Total 12.71 L Vit D 1,25-Dihydroxy Pending 1,25 Dihydroxy Vit D2 Pending 1,25 Dihydroxy Vit D3 Pending Gastrin Pending TSH 0.02 L Free T4 2.07 H Free T3 pg/mL 2.0 PTH Intact < 1.2 L Principal diagnosis: Chronic intestinal pseudoobstruction; high output ileostomy Constitutional Vitals: Vital Signs Temp Pulse Resp BP Pulse Ox 36.3 C 77 20 116/63 96 01/06/21 06:35 01/06/21 06:35 01/06/21 06:35 01/06/21 06:35 01/06/21 06:35 Period Temp Pulse Resp BP Sys/Archuleta Pulse Ox Last 24 Hr 36.3 C-37.2 C 77-89 16-20 112-137/63-70 94-100 Intake and Output 01/05/21 01/06/21 01/06/21 21:59 05:59 13:59 Intake Total 580 1094 Output Total 1675 400 Balance -1095 694 Weight 100.017 kg Intake & Output: Intake & Output 01/05/21 01/06/21 01/06/21 21:59 05:59 13:59 Intake Total 580 1094 Output Total 1675 400 Balance -1095 694 Weight 100.017 kg Intake: IV 100 1014 Sodium Acetate 50 Meq Calcium 914 Chloride 1,000 mg Potassium Chloride 20 Meq In Sodium Chloride 0.45% 1,000 ml @ 84 mls/hr IV [id number] Rx#: [id number] Oral 480 80 Tube Feeding 0 Output: Gastric Drainage 400 Left Nare 400 Urine Catheter Amount 225 Void Amount 450 400 Stool 600 Other: Meal jello Percent of Meal Consumed 100% Feeding Ability Independent Urine Appearance Cloudy Clear Urine Color Dark Yellow Bright Yellow Urine Odor Strong Stool Color Green General appearance: cooperative, no acute distress and obese Head Head exam: Present atraumatic Eye Eye exam: Present PERRL; Absent scleral icterus Pupils: Present PERRL Additional comments: NO PTOSIS ENT ENT exam: Present mucous membranes dry Neck Neck exam: Present normal inspection Respiratory Respiratory exam: Present normal respiratory exam and CTAB Cardiovascular Cardiovascular exam: Present normal rate and rhythm, RRR, +S1 and +S2; Absent gallop and JVD GI/Abdominal GI/Abdominal exam: Present hyperactive bowel sounds Additional comments: RLQ ostomy with decrease output Extremities Exam Extremities exam: Present pedal edema (Trace); Absent tenderness Neurological Exam Neurological exam: Present CN II-XII intact, normal gait and oriented X3 Psychiatric Psychiatric exam: Present normal affect Skin Skin exam: Present dry and warm A/P Assessment and plan (1) Metabolic acidosis with normal anion gap and failure of bicarbonate regeneration: Status: Acute Comment: Acetate IV Avoid PPI (2) Hyponatremia with decreased serum osmolality: Status: Acute Comment: Avoid hypotonic fluids IV (3) Hypophosphatemia: Status: Acute Comment: Until Ca corrected, leave alone (4) Hypocalcemia: Status: Resolved Comment: Definitely hypoparathyroid Restart Calcitriol 0.5 mg qOD CaCO3 po TID UNPREDICTABLE GI ABSORTION IS THE ISSUE Recombinent PTH sq will be trump card if needed (5) Chronic intestinal pseudo-obstruction: Status: Chronic Comment: If no mechanical obstruction, patient says cholinesterase inhibitors usually works Linzess is another possibility Octreotide has helped in children (6) Myasthenia gravis: Status: Chronic Comment: Prednisone dependent at 20 mg daily. In association with thyoma ~20 yrs [employer] Cholinesterase inhibitor IM and/or PO (7) Chronic, continuous use of opioids: Status: Chronic Comment: Need to minimize or stop as they are confusing the bowel issue (8) Ileostomy status: Status: Acute Comment: Decreased ostomy output looks like SBO clinically and radiographically Keep hydrated PRN electrolyte replacement, juan ramon keep K >4.0 (9) Polyglandular autoimmune syndrome: Status: Chronic Comment: I see no dental or nail dystrophy to suggest Type 1 polyglandular failure which is the only type associated with HYPOPARATHYROIDISM and no autoimmune adrenalitis. I have not read that MG is a feature and it's not clear that her thyroid disease is autoimmune in nature. 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
--- NOTE | 2021-01-06 07:52 | Internal Med Progress Note ---
SUBJECTIVE Subjective Patient information: Note initiated : 01/06/21 at 7:50 am Service Date, if different from initiated Date: [] Patient: Dayanna Guo a 60 y/o F admitted on 12/27/20 for weakness, cool clammy. Chief Complaint: [] Principal diagnosis: Chronic intestinal pseudoobstruction; high output ileostomy Interval history: Principal diagnosis: Chronic intestinal pseudoobstruction; high output ileostomy Interval history: Interval history: Ms. Guo is a 60 year old F with a history of recurrent bowel obstruction and was recently discharged December 20 to half-way facility. Patient was doing well however over the last 3 days nursing staff has noticed increasing weakness/cough/fatigue malaise and inability to function. She in all probability was exposed to sick contacts. She denies headache or stacie tophobia endorses to weakness myalgia and joint aches. She denies increased ostomy output or dysuria, abdominal pain or distention. EMS was called after facility staff noticed her increasing lethargic and confused. Initial work-up was consistent with severe sepsis elevated white count/lactic acidosis without a clear source. Cultures were drawn patient was started on antibiotic coverage. Calcium at 18 with severe volume depletion. Patient was started on crystalloids. Notably she was discharged on diuretics after recent hospitalization. subsequently nephrology was consulted in light of hyp ercalcemia/potassium 5.9/acute kidney injury with a creatinine of 1.4. Per nephrology patient was started on crystalloid at 200 cc/bicarbonate drip/Kayexalate. Subsequently hospitalist service was consulted for admission At the time of evaluation patient is very lethargic drowsy and unable to open her eyes. She is barely able to verbalize and provide history. Most of history was obtained from review of medical records and ER physician. No family members present. 12/28-patient doing well. Calcium down to 12 from 18. More lucid alert. Bisphosphonates given today. Fever defervesced. White count downtrending from 19 point 8K to 12.4. No obvious source of infection. Case discussed with nephrology. Potassium down to 4.2 post Kayexalate. Ostomy output stable. No evidence of bowel obstruction. Continue existing treatment/crystalloids and supportive management with diet and therapies. Possible transition to SNF in 48 hours. [id number] cocci in blood culture. Serratia on urine culture. Antibiotic escalated to cefepime, continue vancomycin, surveillance cultures, ec hocardiogram to rule out endocarditis. However clinically improving and improved electrolytes, creatinine 0.8, potassium 3.8, calcium down to 9.5 status post bisphosphonate. No overnight fever chills. Continue close monitoring. 12/30-patient complains of excessive ostomy output throughout the night. Could not sleep. However electrolytes improved with calcium 9.7. GPC bacteremia ID consulted. ID recommends discontinuing cefepime as unlikely Serratia as a cause of sepsis. Continue vancomycin. Echocardiogram EF 70%. No valvular vegetations noted on echocardiogram. Surgery consulted. Two-view abdominal imaging reveals nonspecific bowel gas pattern. Continue anticoagulation for PEs 12/31-patient doing better. Improved ostomy output on cholestyramine/lower dose of pyridostigmine. ID recommends continuation of vancomycin for 2 weeks as a port salvage treatment for bacteremia. Blood cultures coag negative staph. White count 11.2, phosphorus improved to 2.7 from 1.7. Tolerating diet. Ongoing therapies. 01/01-patient not feeling well this morning, persistent nausea/abdominal pain and lethargic. On crystalloids. Bicarb down to 10. Nephrology consulted. Also surgery on board for possible bowel obstruction. Continuing vancomycin for enterococcal bacteremia per ID. Worsening white count at 14.1, 01/02 Patient had low blood sugar this morning. Stomach achiness. Acidosis improved 01/03 Patient states she has nausea. A little bit of vomiting yesterday. Ostomy outp ut thicker today. 01/04 Patient feeling sick. States she is bloated and has nausea. X-ray by surgeon pending. 01/05 Feeling better today. Abdominal pain significantly improved. Slept well. 01/06 Continues to feel better today. Tolerating diet. Has NG tube in place. Electrolytes improved. Review of Systems: denies headache/fever/chills/chest pain/cough/dyspnea/diarrhea. Otherwise see above. Constitutional Vitals: Vital Signs Temp Pulse Resp BP Pulse Ox 97.3 F 77 20 116/63 96 01/06/21 06:35 01/06/21 06:35 01/06/21 06:35 01/06/21 06:35 01/06/21 06:35 Period Temp Pulse Resp BP Sys/Archuleta Pulse Ox Last 24 Hr 97.3 F-99.0 F 77-89 16-20 112-137/63-70 94-100 Intake and Output 01/05/21 01/06/21 01/06/21 21:59 05:59 13:59 Intake Total 580 1094 Output Total 1675 400 Balance -1095 694 Weight 100.017 kg Intake & Output: Intake & Output 01/05/21 01/06/21 01/06/21 21:59 05:59 13:59 Intake Total 580 1094 Output Total 1675 400 Balance -1095 694 Weight 100.017 kg Intake: IV 100 1014 Sodium Acetate 50 Meq Calcium 914 Chloride 1,000 mg Potassium Chloride 20 Meq In Sodium Chloride 0.45% 1,000 ml @ 84 mls/hr IV .[id number] [facility] Rx#: [id number] Oral 480 80 Tube Feeding 0 Output: Gastric Drainage 400 Left Nare 400 Urine Catheter Amount 225 Void Amount 450 400 Stool 600 Other: Meal jello Percent of Meal Consumed 100% Feeding Ability Independent Urine Appearance Cloudy Clear Urine Color Dark Yellow Bright Yellow Urine Odor Strong Stool Color Green Exam: General: Alert, Awake, No acute Distress, obese Eyes/N/T: EOMI, Head/Neck: neck supple, CV: RRR, No murmurs, Pulm: Clear b/l, no wheezing/rhonchi/rales Abd: soft, nontender, +BS x4, ostomy Ext: no clubbing/cyanosis, mild b/l LE mild edema Neuro: Alert, no focal deficits, moves all extremities, Skin: warm/dry OBJ DATA Labs CBC & Chem 7: 01/05/21 08:10 01/06/21 05:03 Labs: Abnormal Lab Results 01/06/21 01/05/21 01/05/21 05:03 18:11 08:17 RBC Hgb Hct MCHC RDW Potassium Chloride Carbon Dioxide 21 L Anion Gap 6.0 L Glucose 189 H 155 H Calcium 7.0 L 6.3 L Phosphorus 2.2 L 1.8 L Lactate Dehydrogenase 256 H Total Protein 5.0 L Albumin 2.7 L 2.8 L Triglycerides 185 H 25-OH Vitamin D Total TSH Free T4 PTH Intact Vancomycin Trough 28.3 H* 01/05/21 01/05/21 01/05/21 08:10 08:10 08:10 RBC 3.47 L Hgb 10.2 L Hct 33.2 L MCHC 30.7 L RDW 15.4 H Potassium Chloride 109 H Carbon Dioxide 17 L Anion Gap Glucose 128 H Calcium 6.3 L Phosphorus 1.9 L Lactate Dehydrogenase Total Protein Albumin 2.7 L Triglycerides 25-OH Vitamin D Total 12.71 L TSH 0.02 L Free T4 2.07 H PTH Intact < 1.2 L Vancomycin Trough 01/05/21 01/04/21 01/03/21 08:09 06:10 06:03 RBC Hgb Hct MCHC RDW Potassium Chloride Carbon Dioxide 18 L 20 L Anion Gap 18.0 H Glucose 125 H 214 H Calcium 6.3 L 7.3 L Phosphorus 1.9 L 1.8 L Lactate Dehydrogenase 299 H 345 H Total Protein 5.5 L Albumin 2.8 L Triglycerides 314 H 396 H 25-OH Vitamin D Total TSH Free T4 PTH Intact Vancomycin Trough 01/03/21 06:03 RBC Hgb Hct MCHC RDW Potassium 3.1 L Chloride Carbon Dioxide 20 L Anion Gap Glucose 135 H Calcium 6.1 L Phosphorus Lactate Dehydrogenase Total Protein Albumin Triglycerides 25-OH Vitamin D Total TSH Free T4 PTH Intact Vancomycin Trough Meds: Medications Apixaban (Apixaban 5 Mg Tablet) 5 mg PO BID [facility] Last Admin: 01/05/21 21:07 Dose: 5 mg Documented by: Dextrose (Dextrose 50% 50 Ml Vial) 0 ml IV UD PRN PRN Reason: Hypoglycemia Last Admin: 01/02/21 08:15 Dose: 25 ml Documented by: Diagnostic Test (Pha) (Accu-Chek 1 Each Strip) 1 each FS ACHS [facility] Last Admin: 01/05/21 20:59 Dose: 1 each Documented by: Duloxetine HCl (Duloxetine 30 Mg Capsule) 30 mg PO BID [facility] Last Admin: 01/05/21 21:07 Dose: 30 mg Documented by: Glucose (Dextrose 31 Gm Oral.Susp) 15 gm PO PRN PRN PRN Reason: Hypoglycemia Heparin Sodium (Porcine) (Heparin Flush 10 Units/Ml 5 Ml Syringe) 5 ml IV Q12 [facility] Last Admin: 01/05/21 21:08 Dose: Not Given Documented by: Hydralazine HCl (Hydralazine 20 Mg/Ml Vial) 10 mg IV Q4-6HP PRN PRN Reason: Hypertension Last Admin: 01/04/21 09:19 Dose: 10 mg Documented by: Magnesium Sulfate (Magnesium Sulfate) 2 gm in 50 mls @ 50 mls/hr IV UD PRN PRN Reason: MG = or < 1.7 Last Infusion: 01/02/21 15:51 Dose: Infused Documented by: Potassium Chloride 40 meq/ (Dextrose) 520 mls @ 130 mls/hr IV UD PRN PRN Reason: K+ = or < 3.5 Acetaminophen (Ofirmev) 1,000 mg in 100 mls @ 200 mls/hr IV Q8HP PRN; Protocol PRN Reason: Pain Last Infusion: 01/06/21 03:05 Dose: Infused Documented by: Sodium Acetate 50 meq/ Calcium Chloride 1,000 mg/ Potassium Chloride 20 meq/ Sodium Chloride 1,045 mls @ 84 mls/hr IV .[id number] [facility] Stop: 01/06/21 15:07 Last Admin: 01/06/21 01:49 Dose: 84 mls/hr Documented by: Calcium Gluconate 4.65 meq/ (Dextrose) 60 mls @ 100 mls/hr IV ONCE ONE Stop: 01/06/21 08:35 Insulin Glargine (Insulin Glargine, Human 1 Unit/0.01 Ml) 5 unit SQ BID [facility] Last Admin: 01/05/21 21:08 Dose: 5 units Documented by: Insulin Human Lispro (Insulin Lispro 1 Unit/0.01 Ml Unit) 0 unit SQ ACHS [facility]; Protocol Last Admin: 01/05/21 21:08 Dose: 1 units Documented by: Levothyroxine Sodium (Levothyroxine 100 Mcg Vial) 75 mcg IV QAMAC [facility] Last Admin: 01/05/21 07:15 Dose: 75 mcg Documented by: Melatonin (Melatonin 3 Mg Tablet) 3 mg PO HSP PRN PRN Reason: Insomnia Methylprednisolone Sodium Succinate (Methylprednisolone Sod Succ 40 Mg/Ml Vial) 10 mg IV Q12 [facility] Last Admin: 01/05/21 21:10 Dose: 10 mg Documented by: Metoprolol Tartrate (Metoprolol Tartrate 5 Mg/5 Ml Vial) 5 mg IV Q5M PRN PRN Reason: Heart Rate > 140 bpm Octreotide Acetate (Octreotide Acetate 100 Mcg/Ml Vial) 100 mcg SQ TID [facility] Last Admin: 01/05/21 21:18 Dose: 100 mcg Documented by: Polyethylene Glycol (Polyethylene Glycol 3350 17 Gm Packet) 17 gm PO DAILYP PRN PRN Reason: Constipation Promethazine HCl (Promethazine 25 Mg/Ml Vial) 12.5 mg IV Q6HP PRN PRN Reason: Nausea And Vomiting Pyridostigmine [place] (Pyridostigmine [place] 10 Mg/2 Ml Ampul) 10 mg IM Q6H [facility] Last Admin: 01/06/21 01:49 Dose: 10 mg Documented by: Sodium Chloride (0.9 % Sodium Chloride 10 Ml Syringe) 10 ml IV Q12 [facility] Last Admin: 01/05/21 21:09 Dose: Not Given Documented by: Sodium Chloride (0.9 % Sodium Chloride 10 Ml Syringe) 10 ml IV Q8 [facility] Last Admin: 01/06/21 06:19 Dose: Not Given Documented by: Vancomycin HCl (Vancomycin Per Pharmacy) 1 order IV UD MALENA A/P Narrative A/P Narrative: A: *Nausea/vomiting/abdominal pain: Suspicious for bowel obstruction or ongoing chronic abdominal issues *History of recurrent SBO follows up with Dr. Currie surgery. *Mixed gap acidosis: excessive bicarbonate loss from ostomy. -improved *High-ostomy output: -per surgery *multiple Electrolyte imbalance: improved *Acute kidney injury: resolved *Severe sepsis with evidence of endorgan dysfunction: Clinically resolved *Coag negative staph bacteremia: surveillance cultures negative so far /echocardiogram no evidence of valvular vegetation -ID recommends 2 weeks vancomycin as a port salvage treatment. 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 Awaiting final I&S to deescalate if possible -Continue anticoagulation for PE -home calcium supp initially held, will defer final vit D/Calcium regimen to Nephrology -cont home prednisone/BB -continue basal (decreased for low BG), metformin held -PT as tolerated -Discharge planning to SNF once clinically stable -ppx: apixaban Time Spent With Patient Time: Total time spent is greater than 50% in coordination of care (as documented) at patient's floor/unit and/or counseling patient:
[2021-01-06] MEDS ORDERED: CALCIUM GLUCONATE 4.65 MEQ in DEXTROSE 5% IN WATER 50 ML IV ONE (08:00)
[2021-01-06] MEDS: INSULIN LISPRO 1 UNIT/0.01 ML UNIT SQ SCH ×4 (08:38→21:37)
[2021-01-06] MEDS ORDERED: CALCITRIOL 0.25 MCG CAPSULE PO SCH ×2 (09:00→13:00)
[2021-01-06] MEDS: LEVOTHYROXINE 100 MCG VIAL IV SCH (09:25)
[2021-01-06] MEDS: APIXABAN 5 MG TABLET PO SCH ×2 (09:28→21:34)
[2021-01-06] MEDS: DULoxetine 30 MG CAPSULE PO SCH ×2 (09:28→21:34)
--- NOTE | 2021-01-06 09:31 | XRay Report ---
CLINICAL INFORMATION: FOLLOW -UP OF SMALL BOWEL OBSTRUCTION COMPARISON: 01/05/2021 FINDINGS: NG tube is in stable satisfactory position. Stomach and small bowel continue to decompress with only small amount residual gas and air-fluid levels. No free air. IMPRESSION: Improving distal small bowel obstruction versus atypical ileus. Interpreted and Authenticated by: All Lundberg 01/06/21
[2021-01-06] MEDS: methylPREDNISolone SOD SUCC 40 MG/ML VIAL IV SCH ×2 (09:58→21:38)
[2021-01-06] MEDS: INSULIN GLARGINE, HUMAN 1 UNIT/0.01 ML SQ SCH ×2 (10:06→21:35)
[2021-01-06] MEDS: OCTREOTIDE ACETATE 100 MCG/ML VIAL SQ SCH ×3 (10:07→21:38)
[2021-01-06] MEDS ORDERED: SODIUM ACETATE IV SCH ×2 (12:45→15:08)
[2021-01-06] MEDS ORDERED: CALCIUM CHLORIDE IV SCH ×2 (12:45→15:08)
[2021-01-06] MEDS ORDERED: POTASSIUM ACETATE IV SCH ×2 (12:45→15:08)
[2021-01-06] MEDS ORDERED: [UNRECOGNIZED DRUG - OTHER] IV SCH ×2 (12:45→15:08)
[2021-01-06] MEDS ORDERED: MVI IV SCH ×2 (12:45→15:08)
--- NOTE | 2021-01-06 13:07 | Internal Med Progress Note ---
SUBJECTIVE Subjective Patient information: Note initiated : 01/06/21 at 1:07 pm Service Date, if different from initiated Date: [] Patient: Dayanna Guo a 60 y/o F admitted on 12/27/20 for weakness, cool clammy. Chief Complaint: [] Principal diagnosis: Chronic intestinal pseudoobstruction; high output ileostomy Interval history: Principal diagnosis: Chronic intestinal pseudoobstruction; high output ileostomy Interval history: Interval history: Ms. Guo is a 60 year old F with a history of recurrent bowel obstruction and was recently discharged December 20 to assisted facility. Patient was doing well however over the last 3 days nursing staff has noticed increasing weakness/cough/fatigue malaise and inability to function. She in all probability was exposed to sick contacts. She denies headache or stacie tophobia endorses to weakness myalgia and joint aches. She denies increased ostomy output or dysuria, abdominal pain or distention. EMS was called after facility staff noticed her increasing lethargic and confused. Initial work-up was consistent with severe sepsis elevated white count/lactic acidosis without a clear source. Cultures were drawn patient was started on antibiotic coverage. Calcium at 18 with severe volume depletion. Patient was started on crystalloids. Notably she was discharged on diuretics after recent hospitalization. subsequently nephrology was consulted in light of hyp ercalcemia/potassium 5.9/acute kidney injury with a creatinine of 1.4. Per nephrology patient was started on crystalloid at 200 cc/bicarbonate drip/Kayexalate. Subsequently hospitalist service was consulted for admission At the time of evaluation patient is very lethargic drowsy and unable to open her eyes. She is barely able to verbalize and provide history. Most of history was obtained from review of medical records and ER physician. No family members present. 12/28-patient doing well. Calcium down to 12 from 18. More lucid alert. Bisphosphonates given today. Fever defervesced. White count downtrending from 19 point 8K to 12.4. No obvious source of infection. Case discussed with nephrology. Potassium down to 4.2 post Kayexalate. Ostomy output stable. No evidence of bowel obstruction. Continue existing treatment/crystalloids and supportive management with diet and therapies. Possible transition to SNF in 48 hours. [id number] cocci in blood culture. Serratia on urine culture. Antibiotic escalated to cefepime, continue vancomycin, surveillance cultures, ec hocardiogram to rule out endocarditis. However clinically improving and improved electrolytes, creatinine 0.8, potassium 3.8, calcium down to 9.5 status post bisphosphonate. No overnight fever chills. Continue close monitoring. 12/30-patient complains of excessive ostomy output throughout the night. Could not sleep. However electrolytes improved with calcium 9.7. GPC bacteremia ID consulted. ID recommends discontinuing cefepime as unlikely Serratia as a cause of sepsis. Continue vancomycin. Echocardiogram EF 70%. No valvular vegetations noted on echocardiogram. Surgery consulted. Two-view abdominal imaging reveals nonspecific bowel gas pattern. Continue anticoagulation for PEs 12/31-patient doing better. Improved ostomy output on cholestyramine/lower dose of pyridostigmine. ID recommends continuation of vancomycin for 2 weeks as a port salvage treatment for bacteremia. Blood cultures coag negative staph. White count 11.2, phosphorus improved to 2.7 from 1.7. Tolerating diet. Ongoing therapies. 01/01-patient not feeling well this morning, persistent nausea/abdominal pain and lethargic. On crystalloids. Bicarb down to 10. Nephrology consulted. Also surgery on board for possible bowel obstruction. Continuing vancomycin for enterococcal bacteremia per ID. Worsening white count at 14.1, 01/02 Patient had low blood sugar this morning. Stomach achiness. Acidosis improved 01/03 Patient states she has nausea. A little bit of vomiting yesterday. Ostomy outp ut thicker today. 01/04 Patient feeling sick. States she is bloated and has nausea. X-ray by surgeon pending. 01/05 Feeling better today. Abdominal pain significantly improved. Slept well. 01/06 Continues to feel better today. Tolerating diet. Has NG tube in place. Electrolytes improved. 01/07 Near baseline, ostomy output has decreased with octreotide. Stable electrolytes, on track for Saturday discharge to SNF. Review of Systems: denies headache/fever/chills/chest pain/cough/dyspnea/diarrhea. Otherwise see above. Constitutional Vitals: Vital Signs Temp Pulse Resp BP Pulse Ox 96.8 F L 93 H 18 166/88 96 01/06/21 11:26 01/06/21 11:26 01/06/21 11:01/06/21 11:26 01/06/21 11:26 Period Temp Pulse Resp BP Sys/Archuleta Pulse Ox Last 24 Hr 96.8 F-99.0 F 77-93 16-20 112-166/63-88 94-100 Intake and Output 01/05/21 01/06/21 01/06/21 21:59 05:59 13:59 Intake Total 580 1094 Output Total 1675 400 390 Balance -1095 694 -390 Weight 100.017 kg Intake & Output: Intake & Output 01/05/21 01/06/21 01/06/21 21:59 05:59 13:59 Intake Total 580 1094 Output Total 1675 400 390 Balance -1095 694 -390 Weight 100.017 kg Intake: IV 100 1014 Sodium Acetate 50 Meq Calcium 914 Chloride 1,000 mg Potassium Chloride 20 Meq In Sodium Chloride 0.45% 1,000 ml @ 84 mls/hr IV .[id number] [facility] Rx#: [id number] Oral 480 80 Tube Feeding 0 Output: Gastric Drainage 400 Left Nare 400 Urine Catheter Amount 225 Void Amount 450 400 390 Stool 600 Other: Meal jello Percent of Meal Consumed 100% Feeding Ability Independent Urine Appearance Cloudy Clear Clear Urine Color Dark Yellow Bright Yellow Bright Yellow Urine Odor Strong Strong Stool Color Green Exam: General: Alert, Awake, No acute Distress, obese Eyes/N/T: EOMI, Head/Neck: neck supple, CV: RRR, No murmurs, Pulm: Clear b/l, no wheezing/rhonchi/rales Abd: soft, nontender, +BS x4, ostomy Ext: no clubbing/cyanosis, mild b/l LE mild edema Neuro: Alert, no focal deficits, moves all extremities, Skin: warm/dry OBJ DATA Labs CBC & Chem 7: 01/05/21 08:10 01/07/21 05:19 Labs: Abnormal Lab Results 01/06/21 01/05/21 01/05/21 05:03 18:11 08:17 RBC Hgb Hct MCHC RDW Chloride Carbon Dioxide 21 L Anion Gap 6.0 L Glucose 189 H 155 H Calcium 7.0 L 6.3 L Phosphorus 2.2 L 1.8 L Lactate Dehydrogenase 256 H Total Protein 5.0 L Albumin 2.7 L 2.8 L Triglycerides 185 H 25-OH Vitamin D Total TSH Free T4 PTH Intact Vancomycin Trough 28.3 H* 01/05/21 01/05/21 01/05/21 08:10 08:10 08:10 RBC 3.47 L Hgb 10.2 L Hct 33.2 L MCHC 30.7 L RDW 15.4 H Chloride 109 H Carbon Dioxide 17 L Anion Gap Glucose 128 H Calcium 6.3 L Phosphorus 1.9 L Lactate Dehydrogenase Total Protein Albumin 2.7 L Triglycerides 25-OH Vitamin D Total 12.71 L TSH 0.02 L Free T4 2.07 H PTH Intact < 1.2 L Vancomycin Trough 01/05/21 01/04/21 08:09 06:10 RBC Hgb Hct MCHC RDW Chloride Carbon Dioxide 18 L 20 L Anion Gap 18.0 H Glucose 125 H 214 H Calcium 6.3 L 7.3 L Phosphorus 1.9 L Lactate Dehydrogenase 299 H 345 H Total Protein 5.5 L Albumin 2.8 L Triglycerides 314 H 396 H 25-OH Vitamin D Total TSH Free T4 PTH Intact Vancomycin Trough Meds: Medications Apixaban (Apixaban 5 Mg Tablet) 5 mg PO BID [facility] Last Admin: 01/06/21 09:28 Dose: 5 mg Documented by: Calcitriol (Calcitriol 0.25 Mcg Capsule) 0.5 mcg PO MoWeFr@0900 [facility] Calcium Carbonate/Glycine (Calcium Carbonate 1,250 Mg/5 Ml Oral.Susp) 500 mg PO TID [facility] Dextrose (Dextrose 50% 50 Ml Vial) 0 ml IV UD PRN PRN Reason: Hypoglycemia Last Admin: 01/02/21 08:15 Dose: 25 ml Documented by: Diagnostic Test (Pha) (Accu-Chek 1 Each Strip) 1 each FS ACHS [facility] Last Admin: 01/06/21 11:59 Dose: 1 each Documented by: Duloxetine HCl (Duloxetine 30 Mg Capsule) 30 mg PO BID [facility] Last Admin: 01/06/21 09:28 Dose: 30 mg Documented by: Glucose (Dextrose 31 Gm Oral.Susp) 15 gm PO PRN PRN PRN Reason: Hypoglycemia Heparin Sodium (Porcine) (Heparin Flush 10 Units/Ml 5 Ml Syringe) 5 ml IV Q12 [facility] Last Admin: 01/06/21 09:29 Dose: Not Given Documented by: Hydralazine HCl (Hydralazine 20 Mg/Ml Vial) 10 mg IV Q4-6HP PRN PRN Reason: Hypertension Last Admin: 01/04/21 09:19 Dose: 10 mg Documented by: Magnesium Sulfate (Magnesium Sulfate) 2 gm in 50 mls @ 50 mls/hr IV UD PRN PRN Reason: MG = or < 1.7 Last Infusion: 01/02/21 15:51 Dose: Infused Documented by: Potassium Chloride 40 meq/ (Dextrose) 520 mls @ 130 mls/hr IV UD PRN PRN Reason: K+ = or < 3.5 Acetaminophen (Ofirmev) 1,000 mg in 100 mls @ 200 mls/hr IV Q8HP PRN; Protocol PRN Reason: Pain Last Infusion: 01/06/21 03:05 Dose: Infused Documented by: Sodium Acetate 50 meq/ Calcium Chloride 1,000 mg/ Potassium Chloride 20 meq/ Sodium Chloride 1,045 mls @ 84 mls/hr IV .[id number] [facility] Stop: 01/06/21 15:07 Last Admin: 01/06/21 01:49 Dose: 84 mls/hr Documented by: Sodium Acetate 25 meq/ Calcium Chloride 1,000 mg/ Potassium Acetate 25 meq/ Multivitamins/Minerals 10 ml/ Sodium Chloride 1,045 mls @ 84 mls/hr IV .[id number] [facility] Stop: 01/07/21 03:34 Sodium Acetate 25 meq/ Calcium Chloride 1,000 mg/ Potassium Acetate 25 meq/ Sodium Chloride 1,035 mls @ 84 mls/hr IV .[id number] [facility] Stop: 01/07/21 15:54 Insulin Glargine (Insulin Glargine, Human 1 Unit/0.01 Ml) 5 unit SQ BID [facility] Last Admin: 01/06/21 10:06 Dose: 5 units Documented by: Insulin Human Lispro (Insulin Lispro 1 Unit/0.01 Ml Unit) 0 unit SQ ACHS [facility]; Protocol Last Admin: 01/06/21 12:32 Dose: Not Given Documented by: Levothyroxine Sodium (Levothyroxine 100 Mcg Vial) 75 mcg IV QAMAC [facility] Last Admin: 01/06/21 09:25 Dose: 75 mcg Documented by: Melatonin (Melatonin 3 Mg Tablet) 3 mg PO HSP PRN PRN Reason: Insomnia Methylprednisolone Sodium Succinate (Methylprednisolone Sod Succ 40 Mg/Ml Vial) 10 mg IV Q12 [facility] Last Admin: 01/06/21 09:58 Dose: 10 mg Documented by: Metoprolol Tartrate (Metoprolol Tartrate 5 Mg/5 Ml Vial) 5 mg IV Q5M PRN PRN Reason: Heart Rate > 140 bpm Octreotide Acetate (Octreotide Acetate 100 Mcg/Ml Vial) 100 mcg SQ TID [facility] Last Admin: 01/06/21 10:07 Dose: 100 mcg Documented by: Polyethylene Glycol (Polyethylene Glycol 3350 17 Gm Packet) 17 gm PO DAILYP PRN PRN Reason: Constipation Promethazine HCl (Promethazine 25 Mg/Ml Vial) 12.5 mg IV Q6HP PRN PRN Reason: Nausea And Vomiting Pyridostigmine Wanda (Pyridostigmine Wanda 10 Mg/2 Ml Ampul) 10 mg IM Q6H [facility] Last Admin: 01/06/21 10:09 Dose: 10 mg Documented by: Sodium Chloride (0.9 % Sodium Chloride 10 Ml Syringe) 10 ml IV Q12 [facility] Last Admin: 01/06/21 09:59 Dose: Not Given Documented by: Sodium Chloride (0.9 % Sodium Chloride 10 Ml Syringe) 10 ml IV Q8 [facility] Last Admin: 01/06/21 06:19 Dose: Not Given Documented by: Vancomycin HCl (Vancomycin Per Pharmacy) 1 order IV UD [facility] A/P Narrative A/P Narrative: A: *Nausea/vomiting/abdominal pain: Suspicious for bowel obstruction or ongoing chronic abdominal issues *History of recurrent SBO follows up with Dr. Currie surgery. *Mixed gap acidosis: excessive bicarbonate loss from ostomy. -improved *High-ostomy output: -per surgery *multiple Electrolyte imbalance: improved *Acute kidney injury: resolved *Severe sepsis with evidence of endorgan dysfunction: Clinically resolved *Coag negative staph bacteremia: surveillance cultures negative so far/echocardiogram no evidence of valvular vegetation -ID recommends 2 weeks vancomycin as a port salvage treatment. 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 Awaiting final I&S to deescalate if possible -Continue anticoagulation for PE -Octreotide SQ TID -home calcium supp initially held, will defer final vit D/Calcium regimen to Nephrology -cont home prednisone/BB -continue basal (decreased for low BG), metformin held -PT as tolerated -Discharge planning to SNF probably saturday -ppx: apixaban Time Spent With Patient Time: Total time spent is greater than 50% in coordination of care (as documented) at patient's floor/unit and/or counseling patient:
[2021-01-06] MEDS: CALCIUM CARBONATE 1,250 MG/5 ML ORAL.SUSP PO SCH ×2 (15:19→21:33)
--- NOTE | 2021-01-06 15:22 | General Surgery Progress Note ---
SUBJECTIVE Subjective Patient information: Note initiated : 01/06/21 at 3:18 pm Service Date, if different from initiated Date: [] Patient: Dayanna Guo 60 y/o F admitted on 12/27/20 for weakness, cool clammy. Chief Complaint: [] Principal diagnosis: Chronic intestinal pseudoobstruction; high output ileostomy Interval history: Patient feels better. She had her tube clamped for the past 24 hours and has had clear liquids. She does not have any nausea vomiting and has not had any distention. Abdominal x-rays do not show any significant increase in the amount of small bowel gas. The stool in her stoma pouch is t hicker but adequate volume. Constitutional Vitals: Vital Signs Temp Pulse Resp BP Pulse Ox 96.8 F L 93 H 18 166/88 96 01/06/21 11:26 01/06/21 11:26 01/06/21 11:26 01/06/21 11:26 01/06/21 11:26 Period Temp Pulse Resp BP Sys/Archuleta Pulse Ox Last 24 Hr 96.8 F-99.0 F 77-93 16-20 112-166/63-88 94-100 Intake and Output 01/06/21 01/06/21 01/06/21 05:59 13:59 21:59 Intake Total 1094 60 720 Output Total 400 810 350 Balance 694 -750 370 Intake & Output: Intake & Output 01/06/21 01/06/21 01/06/21 05:59 13:59 21:59 Intake Total 1094 60 720 Output Total 400 810 350 Balance 694 -750 370 Intake: IV 1014 60 Calcium Gluconate 4.65 Meq In 60 Dextrose 5% in Water 50 ml @ 100 mls/hr IV ONCE ONE Rx#: [id number] Sodium Acetate 50 Meq Calcium 914 Chloride 1,000 mg Potassium Chloride 20 Meq In Sodium Chloride 0.45% 1,000 ml @ 84 mls/hr IV .[id number] [facility] Rx#: [id number] Oral 80 720 Output: Void Amount 400 700 350 Stool 110 Other: Meal jello Percent of Meal Consumed 100% Feeding Ability Independent Urine Appearance Clear Clear Urine Color Bright Yellow Bright Yellow Urine Odor Strong Stool Color Brown Yellow Stool Consistency Liquid Loose Head Head exam: Present atraumatic Eye Eye exam: Present EOMI and normal appearance Pupils: Present PERRL ENT ENT exam: Present mucous membranes moist Neck Neck exam: Present full ROM and normal inspection; Absent meningismus Respiratory Respiratory exam: Present normal respiratory exam and CTAB Cardiovascular Cardiovascular exam: Present normal rate and rhythm, RRR, +S1 and +S2; Absent gallop and JVD GI/Abdominal GI/Abdominal exam: Present distended and hyperactive bowel sounds Additional comments: RLQ ileostomy Extremities Exam Extremities exam: Present pedal edema (Trace); Absent tenderness Neurological Exam Neurological exam: Present CN II-XII intact and oriented X3 Psychiatric Psychiatric exam: Present normal affect Skin Skin exam: Present dry and normal color; Absent mottled, pallor and petechiae A/P Assessment and plan (1) Ileostomy status: Status: Acute Comment: Decreased ostomy output looks like SBO clinically and radiographically Keep hydrated PRN electrolyte replacement, juan ramon keep K >4.0 (2) Hyponatremia with decreased serum osmolality: Status: Acute Comment: Avoid hypotonic fluids IV (3) Hypophosphatemia: Status: Acute Comment: Until Ca corrected, leave alone (4) Hypocalcemia: Status: Resolved Comment: Definitely hypoparathyroid Restart Calcitriol 0.5 mg qOD CaCO3 po TID UNPREDICTABLE GI ABSORTION IS THE ISSUE Recombinent PTH sq will be trump card if needed (5) Chronic intestinal pseudo-obstruction: Status: Chronic Comment: If no mechanical obstruction, patient says cholinesterase inhibitors usually works Linzess is another possibility Octreotide has helped in children (6) Myasthenia gravis: Status: Chronic Comment: Prednisone dependent at 20 mg daily. In association with thyoma ~20 yrs [employer] Cholinesterase inhibitor IM and/or PO (7) Chronic, continuous use of opioids: Status: Chronic Comment: Need to minimize or stop as they are confusing the bowel issue Narrative A/P Narrative: Discontinue nasogastric tube Restart clear liquids Advance to full liquids in the morning Check abdominal x-rays in the morning Will probably be ready for discharge when she can be accepted by the nursing care facility. Time Spent With Patient Time: Total time spent is greater than 50% in coordination of care (as documented) at patient's floor/unit and/or counseling patient:
[2021-01-06] MEDS: MAGNESIUM SULFATE 2 GM/50 ML BAG IV PRN (16:43)
[2021-01-06] MEDS: hydrALAZINE 20 MG/ML VIAL IV PRN (23:51)
[2021-01-07] MEDS: PYRIDOSTIGMINE BROMIDE 10 MG/2 ML AMPUL IM SCH ×4 (00:22→18:55)
[2021-01-07] MEDS ORDERED: CALCIUM CHLORIDE IV SCH (03:35)
[2021-01-07] MEDS ORDERED: SODIUM ACETATE IV SCH (03:35)
[2021-01-07] MEDS ORDERED: [UNRECOGNIZED DRUG - OTHER] IV SCH (03:35)
[2021-01-07] MEDS ORDERED: POTASSIUM ACETATE IV SCH (03:35)
[2021-01-07] MEDS: 0.9 % SODIUM CHLORIDE 10 ML SYRINGE IV SCH ×5 (05:08→21:01)
[2021-01-07 06:28] LABS: Vancomycin,Random 10.3 ug/mL
[2021-01-07 06:42] LABS: Blood Urea Nitrogen 5 mg/dL (6-20); Calcium 10.3 mg/dL (8.6-10.4); Carbon Dioxide 27 mmol/L (22-30); Chloride 102 mmol/L (96-108); Glomerular Filtration Rate 81; Glucose 183 mg/dL (70-105)
[2021-01-07] MEDS: CALCIUM CARBONATE 1,250 MG/5 ML ORAL.SUSP PO SCH ×3 (09:49→21:18)
[2021-01-07] MEDS: OCTREOTIDE ACETATE 100 MCG/ML VIAL SQ SCH ×3 (09:49→21:21)
[2021-01-07] MEDS: VANCOMYCIN 1,500 MG in 0.9 % SODIUM CHLORIDE 500 ML IV SCH (09:49)
[2021-01-07] MEDS: methylPREDNISolone SOD SUCC 40 MG/ML VIAL IV SCH (09:51)
[2021-01-07] MEDS: INSULIN GLARGINE, HUMAN 1 UNIT/0.01 ML SQ SCH ×2 (09:51→21:21)
[2021-01-07] MEDS: LEVOTHYROXINE 100 MCG TABLET PO SCH (09:51)
[2021-01-07] MEDS: APIXABAN 5 MG TABLET PO SCH ×2 (09:52→21:20)
[2021-01-07] MEDS: INSULIN LISPRO 1 UNIT/0.01 ML UNIT SQ SCH ×4 (09:52→20:59)
[2021-01-07] MEDS: DULoxetine 30 MG CAPSULE PO SCH ×2 (09:52→21:20)
--- NOTE | 2021-01-07 11:38 | Nephrology Progress Note ---
SUBJECTIVE Subjective Patient information: Note initiated : 01/07/21 at 11:27 am Service Date, if different from initiated Date: [] Patient: Dayanna Guo 60 y/o F admitted on 12/27/20 for weakness, cool clammy. Chief Complaint: [GI issues] interval Hx: Complicated patient as outlined in yesterday's note in detail. Her major problem is pseudoobstruction and/or small bowel obstruction making GI absorption of needed medications unpredictable at best. She carries the diagnosis of myasthenia gravis and is currently being treated with intramuscular pyridostigmine which theoretically would help pseudoobstruction but would be contraindicated in small bowel mechanical obstruction. Due to high bicarbonate losses in her ileostomy fluid she has been placed on octreotide which has shown to be effective in pseudoobstruction of children on occasions. Linzess would be a third prokinetic medication. Minimizing her narcotic administration is fatima due to the adverse effects on GI motility. In addition she has hypoparathyroidism but I do not think she has polyglandular failure type I (this is the only type that is associated with hypoparathyroidism) as this presents in material reclaimer and is usually associated with autoimmune adrenal failure, chronic mucocutaneous candidiasis, as well as dental and nail dystrophy. She has multiple fluid and electrolyte abnormalities which are difficult to manage given her GI issues at the time of presentation. Laboratory Tests 01/05/21 01/05/21 01/07/21 08:10 08:10 05:19 Sodium 140 Potassium 4.9 Chloride 102 Carbon Dioxide 27 Anion Gap 11.0 BUN 5 L Creatinine 0.8 GFR Calculation 81 Glucose 183 H Calcium 10.3 Phosphorus 4.0 Magnesium 2.1 25-OH Vitamin D Total 12.71 L TSH 0.02 L Free T4 2.07 H Free T3 pg/mL 2.0 PTH Intact < 1.2 L Today as she is feeling better and plans are for discharge to facility on Saturday. We will switch to oral medications Upon discharge she should use KCl elixir not K. Dur due to difficulties with her GI tract She should use a chewable calcium carbonate supplement Daily calcitriol and vitamin D supplement will be required given her hypoparathyroidism and low vitamin D levels T4 replacement has been reduced to 200 mcg a day Pyridostigmine and octreotide will be given either IM or subcu respectively She will need weekly renal function panels drawn, along with magnesium levels, and a TSH level with free T4 on a monthly basis Interval history: Patient with a complicated medical history recently readmitted to the hospital with continued small bowel dysfunction/obstructive function with air-fluid levels and dilated loops of bowel on KUB. More likely could be related to myasthenia gravis and narcotics as opposed to mechanical obstruction or adhesions though she has had these in the past as well. Due to bicarbonate rich ileostomy output she developed a non-anion gap metabolic acidosis with a bicarbonate of 10 which is being treated by subcu octreotide as well as IV bicarbonate therapy. This morning her bicarbonate drip will be discontinued as her serum bicarbonate is now approaching normal. I&O's (-)1500 Vital Signs Temp Pulse Resp BP BP BP Pulse Ox 01/02/21 07:56 36.8 C 75 16 105/60 94 01/02/21 03:35 36.3 C 78 16 124/79 100 01/02/21 00:00 36.3 C 90 20 120/77 96 01/01/21 21:00 126/83 01/01/21 19:28 36.8 C 99 H 18 96/65 96 01/01/21 16:00 36.3 C 100 H 16 104/69 94 01/01/21 11:38 36.2 C 111 H 18 122/85 99 Intake and Output 01/01/21 01/02/21 01/02/21 21:59 05:59 13:59 Intake Total 1720 1309 Output Total 1975 1450 Balance -255 -141 Intake: IV 800 919 Sodium Chloride 0.9% 1,000 ml @ 800 100 mls/hr IV .Q10H [facility] Rx#: [id number] Sodium Bicarbonate Vial 150 Meq 919 In Dextrose 5% in Water 850 ml @ 125 mls/hr IV Q8H [facility] Rx#: [id number] Oral 920 390 Output: Void Amount 1075 525 Stool 900 925 Other: Urine Appearance Clear Clear Urine Color Bright Yellow Bright Yellow Stool Color Green Green Stool Consistency Watery Watery Weight 100.153 kg Laboratory Tests 01/02/21 05:18 Sodium 132 L Potassium 3.0 L Chloride 100 Carbon Dioxide 23 Anion Gap 9.0 BUN 21 H Creatinine 0.8 GFR Calculation 81 Glucose 96 Uric Acid 5.7 Calcium 6.7 L Phosphorus 1.9 L Magnesium 1.6 Sitting in bed chatting on phone. Constitutional Vitals: Vital Signs Temp Pulse Resp BP Pulse Ox 37.1 C 81 16 165/96 96 01/07/21 06:47 01/07/21 06:47 01/07/21 06:47 01/07/21 06:47 01/07/21 06:47 Period Temp Pulse Resp BP Sys/Archuleta Pulse Ox Last 24 Hr 36.6 C-37.2 C 79-94 10-18 141-181/71-96 93-97 Intake and Output 01/06/21 01/07/21 01/07/21 21:59 05:59 13:59 Intake Total 1785 1300 1040 Output Total 1450 1025 Balance 030 151 7566 Weight 100.516 kg Intake & Output: Intake & Output 01/06/21 01/07/21 01/07/21 21:59 05:59 13:59 Intake Total 1785 1300 1040 Output Total 1450 1025 Balance 815 476 0049 Weight 100.516 kg Intake: IV 1065 Sodium Acetate 50 Meq Calcium 1015 Chloride 1,000 mg Potassium Chloride 20 Meq In Sodium Chloride 0.45% 1,000 ml @ 84 mls/hr IV .[id number] [facility] Rx#: [id number] Oral 720 1300 1040 Output: Void Amount 1200 900 Stool 250 125 Other: Meal Breakfast Percent of Meal Consumed 100% Feeding Ability Independent Urine Appearance Clear Clear Urine Color Bright Yellow Pale Stool Size Moderate Stool Color Yellow Stool Consistency Liquid Loose General appearance: no acute distress and obese Exam: Nontoxic-appearing Head Head exam: Present normal inspection and normocephalic Eye Eye exam: Present EOMI, normal appearance and PERRL; Absent nystagmus and scleral icterus Pupils: Present PERRL Additional comments: No ptosis ENT ENT exam: Present mucous membranes moist Additional comments: Normal dentition No mucocutaneous candidiasis Neck Neck exam: Present full ROM and normal inspection; Absent meningismus Respiratory Respiratory exam: Present normal respiratory exam and CTAB Cardiovascular Cardiovascular exam: Present normal rate and rhythm, RRR, +S1 and +S2; Absent JVD and systolic murmur GI/Abdominal GI/Abdominal exam: Present soft and diminished bowel sounds Neurological Exam Neurological exam: Present alert, CN II-XII intact and oriented X3 Psychiatric Psychiatric exam: Present normal affect and normal mood Skin Skin exam: Present normal color and warm; Absent pallor, petechiae and rash A/P Assessment and plan (1) Metabolic acidosis with normal anion gap and failure of bicarbonate regeneration: Status: Acute Comment: Acetate IV Avoid PPI (2) Hyponatremia with decreased serum osmolality: Status: Acute Comment: Avoid hypotonic fluids IV (3) Hypophosphatemia: Status: Acute Comment: Until Ca corrected, leave alone (4) Hypocalcemia: Status: Resolved Comment: Definitely hypoparathyroid Restart Calcitriol 0.5 mg qOD CaCO3 po TID UNPREDICTABLE GI ABSORTION IS THE ISSUE Recombinent PTH sq will be trump card if needed (5) Chronic intestinal pseudo-obstruction: Status: Chronic Comment: If no mechanical obstruction, patient says cholinesterase inhibitors usually works Linzess is another possibility Octreotide has helped in children (6) Myasthenia gravis: Status: Chronic Comment: Prednisone dependent at 20 mg daily. In association with thyoma ~20 yrs [employer] Cholinesterase inhibitor IM and/or PO (7) Chronic, continuous use of opioids: Status: Chronic Comment: Need to minimize or stop as they are confusing the bowel issue (8) Ileostomy status: Status: Acute Comment: Decreased ostomy output looks like SBO clinically and radiographically Keep hydrated PRN electrolyte replacement, juan ramon keep K >4.0 (9) Polyglandular autoimmune syndrome: Status: Chronic Comment: I see no dental or nail dystrophy to suggest Type 1 polyglandular failure which is the only type associated with HYPOPARATHYROIDISM and no autoimmune adrenalitis. I have not read that MG is a feature and it's not clear that her thyroid disease is autoimmune in nature. 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 GI Bicarb losses are the cause based on maximally acidified urine (ie: no urinary bicarb loss) 2. Serial BMP and daily mag and phos 3. Check TSH was acceptable or actually supressed => decrease 50% (or 75% if using IV synthroid) 4. Reducing GI fluid and bicarb losses will be fatima. (Physostigminine and octreotide could help resolve ileus but the octreotide does help reduce bicarb loss) 5. Replace K, PO4, Mg and Ca losses IV till GI tract settles down losses 6. Calcium is low now due to biphosphonate therapy earlier and IV PO4 currently Calcitriolol is risky if she gets dehydrated again as she had reached a level of 16-18 last hospitalization. I favor Vit D3 and Ca supplement at discharge Needs Vit D levels, PTH level 7. I suspect she will have to be treated with a combination of oral potassium citrate (which would kill 2 birds with 1 stone), or KCl elixir and Bicitra solution. Her bowel motility issues make using formulations such as K-Dur lesson in futility 8. Suspect she will need Neutra-Phos K as an outpatient as well. 9. At a minimum she will need once or week labs upon discharge 10. For now IV electrolyte riders 11. Trial off narcotics and use IV tylenol 12. Measure ileostomy pH => if elevated try stopping PPi 13. Check gastrin level Time Spent With Patient Time: (1) Metabolic acidosis with normal anion gap and failure of bicarbonate regeneration: Status: Acute Comment: Acetate IV - Switch to bicitra if needed Avoid PPI (2) Hyponatremia with decreased serum osmolality: Status: Acute Comment: Avoid hypotonic fluids IV (3) Hypophosphatemia: Status: Acute Comment: Until Ca corrected, leave alone (4) Hypocalcemia: Status: Resolved Comment: Definitely hypoparathyroid Restart Calcitriol 0.25 mg qD CaCO3 po TID UNPREDICTABLE GI ABSORTION IS THE ISSUE Recombinent PTH sq will be trump card if needed (5) Chronic intestinal pseudo-obstruction: Status: Chronic Comment: If no mechanical obstruction, patient says cholinesterase inhibitors usually works Linzess is another possibility Octreotide has helped in children (6) Myasthenia gravis: Status: Chronic Comment: Prednisone dependent at 20 mg daily. In association with thyoma ~20 yrs [employer] Cholinesterase inhibitor IM and/or PO (7) Chronic, continuous use of opioids: Status: Chronic Comment: Need to minimize or stop as they are confusing the bowel issue (8) Ileostomy status: Status: Acute Comment: Decreased ostomy output looks like SBO clinically and radiographically Keep hydrated PRN electrolyte replacement, juan ramon keep K >4.0 (9) Polyglandular autoimmune syndrome: Status: Chronic Comment: I see no dental or nail dystrophy to suggest Type 1 polyglandular failure which is the only type associated with HYPOPARATHYROIDISM and no autoimmune adrenalitis. I have not read that MG is a feature and it's not clear that her thyroid disease is autoimmune in nature. 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
--- NOTE | 2021-01-07 11:49 | XRay Report ---
CLINICAL INFORMATION: FOLLOW -UP OF SMALL BOWEL OBSTRUCTION COMPARISON: None. FINDINGS: NG tube now out. Stomach and a few loops of small bowel in the midabdomen contain slightly more gas than on the previous film, but no abnormal dilatation. No free air. IMPRESSION: Negative exam Interpreted and Authenticated by: All Lundberg 01/07/21
--- NOTE | 2021-01-07 13:43 | General Surgery Progress Note ---
SUBJECTIVE Subjective Patient information: Note initiated : 01/07/21 at 1:40 pm Service Date, if different from initiated Date: [] Patient: Dayanna Guo 60 y/o F admitted on 12/27/20 for weakness, cool clammy. Chief Complaint: [] Principal diagnosis: Chronic intestinal pseudoobstruction; high output ileostomy Interval history: Patient is doing well. She is tolerating full liquid diet without difficulty. She is having good output through her stoma and does not have abdominal distention. She has good active bowel sounds. All of her electrolytes have corrected. Constitutional Vitals: Vital Signs Temp Pulse Resp BP Pulse Ox 97 F 91 H 14 183/101 98 01/07/21 11:31 01/07/21 11:31 01/07/21 11:31 01/07/21 11:31 01/07/21 11:31 Period Temp Pulse Resp BP Sys/Archuleta Pulse Ox Last 24 Hr 97 F-98.9 F 79-94 10-18 141-183/71-101 93-98 Intake and Output 01/06/21 01/07/21 01/07/21 21:59 05:59 13:59 Intake Total 1785 1300 1340 Output Total 1450 1025 400 Balance 335 275 940 Weight 221 lb 9.6 oz Intake & Output: Intake & Output 01/06/21 01/07/21 01/07/21 21:59 05:59 13:59 Intake Total 1785 1300 1340 Output Total 1450 1025 400 Balance 335 275 940 Weight 221 lb 9.6 oz Intake: IV 1065 Sodium Acetate 50 Meq Calcium 1015 Chloride 1,000 mg Potassium Chloride 20 Meq In Sodium Chloride 0.45% 1,000 ml @ 84 mls/hr IV .[id number] [facility] Rx#: [id number] Oral 720 1300 1340 Output: Void Amount 1200 900 400 Stool 250 125 Other: Meal Lunch Percent of Meal Consumed 100% Feeding Ability Independent Urine Appearance Clear Clear Clear Urine Color Bright Yellow Pale Bright Yellow Stool Size Moderate Stool Color Yellow Stool Consistency Liquid Loose Eye Eye exam: Present EOMI and normal appearance Pupils: Present PERRL ENT ENT exam: Present mucous membranes moist Neck Neck exam: Present full ROM and normal inspection; Absent meningismus Respiratory Respiratory exam: Present normal respiratory exam and CTAB Cardiovascular Cardiovascular exam: Present normal rate and rhythm, RRR, +S1 and +S2; Absent gallop and JVD GI/Abdominal GI/Abdominal exam: Present distended and hyperactive bowel sounds Additional comments: RLQ ileostomy Extremities Exam Extremities exam: Present pedal edema (Trace); Absent tenderness Neurological Exam Neurological exam: Present CN II-XII intact and oriented X3 Psychiatric Psychiatric exam: Present normal affect Skin Skin exam: Present dry and normal color; Absent mottled, pallor and petechiae A/P Assessment and plan (1) Ileostomy status: Status: Acute Comment: Decreased ostomy output looks like SBO clinically and radiographically Keep hydrated PRN electrolyte replacement, juan ramon keep K >4.0 (2) Hyponatremia with decreased serum osmolality: Status: Acute Comment: Avoid hypotonic fluids IV (3) Hypophosphatemia: Status: Acute Comment: Until Ca corrected, leave alone (4) Hypocalcemia: Status: Resolved Comment: Definitely hypoparathyroid Restart Calcitriol 0.5 mg qOD CaCO3 po TID UNPREDICTABLE GI ABSORTION IS THE ISSUE Recombinent PTH sq will be trump card if needed (5) Chronic intestinal pseudo-obstruction: Status: Chronic Comment: If no mechanical obstruction, patient says cholinesterase inhibitors usually works Linzess is another possibility Octreotide has helped in children (6) Myasthenia gravis: Status: Chronic Comment: Prednisone dependent at 20 mg daily. In association with thyoma ~20 yrs [employer] Cholinesterase inhibitor IM and/or PO (7) Chronic, continuous use of opioids: Status: Chronic Comment: Need to minimize or stop as they are confusing the bowel issue Narrative A/P Narrative: Advance to GI soft diet Patient is stable for discharge and transfer to nursing care facility when a bed is available. Time Spent With Patient Time: Total time spent is greater than 50% in coordination of care (as documented) at patient's floor/unit and/or counseling patient:
[2021-01-07] MEDS: MELATONIN 3 MG TABLET PO PRN (21:20)
[2021-01-08] MEDS: PYRIDOSTIGMINE BROMIDE 10 MG/2 ML AMPUL IM SCH ×4 (00:52→18:54)
[2021-01-08] MEDS: 0.9 % SODIUM CHLORIDE 10 ML SYRINGE IV SCH ×5 (04:10→21:07)
[2021-01-08 06:43] LABS: Albumin 2.7 gm/dL (3.2-5.2); Calcium 10.4 mg/dL (8.6-10.4); Phosphorous 4.1 mg/dL (2.5-4.5)
--- NOTE | 2021-01-08 07:51 | XRay Report ---
CLINICAL INFORMATION: FOLLOW -UP OF SMALL BOWEL OBSTRUCTION COMPARISON: None. FINDINGS: NG tube now out. Small amount of gas seen within the stomach and small bowel. There appear normal caliber. Scattered fluid levels noted. No free air. IMPRESSION: Negative Interpreted and Authenticated by: All Lundberg 01/08/21
[2021-01-08] MEDS: LEVOTHYROXINE 100 MCG TABLET PO SCH (07:52)
[2021-01-08] MEDS: INSULIN LISPRO 1 UNIT/0.01 ML UNIT SQ SCH ×4 (07:53→21:07)
[2021-01-08] MEDS ORDERED: CALCITRIOL 0.25 MCG CAPSULE PO SCH (09:00)
[2021-01-08] MEDS: OCTREOTIDE ACETATE 100 MCG/ML VIAL SQ SCH ×3 (09:36→21:26)
[2021-01-08] MEDS: APIXABAN 5 MG TABLET PO SCH ×2 (09:37→21:25)
[2021-01-08] MEDS: predniSONE 20 MG TABLET PO SCH (09:37)
[2021-01-08] MEDS: INSULIN GLARGINE, HUMAN 1 UNIT/0.01 ML SQ SCH ×2 (09:37→21:26)
[2021-01-08] MEDS: CALCIUM CARBONATE 1,250 MG/5 ML ORAL.SUSP PO SCH (09:37)
[2021-01-08] MEDS: DULoxetine 30 MG CAPSULE PO SCH ×2 (09:37→21:25)
--- NOTE | 2021-01-08 10:02 | General Surgery Progress Note ---
SUBJECTIVE Subjective Patient information: Note initiated : 01/08/21 at 10:01 am Service Date, if different from initiated Date: [] Patient: Dayanna Guo 60 y/o F admitted on 12/27/20 for weakness, cool clammy. Chief Complaint: [] Principal diagnosis: Chronic intestinal pseudoobstruction; high output ileostomy Interval history: No significant changes since yesterday, patient reports feeling well, she has been working with physical therapy and has normal ostomy output at this time. She denies abdominal pain. Constitutional Vitals: Vital Signs Temp Pulse Resp BP Pulse Ox 97.3 F 95 H 14 156/93 96 01/08/21 06:40 01/08/21 06:40 01/08/21 06:40 01/08/21 06:40 01/08/21 06:40 Period Temp Pulse Resp BP Sys/Archuleta Pulse Ox Last 24 Hr 97 F-98.4 F 74-95 14-16 131-183/85-101 95-98 Intake and Output 01/07/21 01/08/21 01/08/21 21:59 05:59 13:59 Intake Total 1035 750 240 Output Total 1500 725 Balance -465 25 240 Weight 230 lb 9.6 oz Intake & Output: Intake & Output 01/07/21 01/08/21 01/08/21 21:59 05:59 13:59 Intake Total 1035 750 240 Output Total 1500 725 Balance -465 25 240 Weight 230 lb 9.6 oz Intake: IV 1035 Sodium Acetate 25 Meq Calcium 1035 Chloride 1,000 mg Potassium Acetate 25 Meq In Sodium Chloride 0.45% 1,000 ml @ 84 mls/hr IV .[id number] [facility] Rx#: [id number] Oral 750 240 Output: Void Amount 1000 575 Stool 500 150 Other: Meal Breakfast Percent of Meal Consumed 100% Feeding Ability Independent Urine Appearance Clear Clear Urine Color Pale Pale Stool Color Brown Brown Stool Consistency Soft Liquid Loose General appearance: cooperative and no acute distress GI/Abdominal GI/Abdominal exam: Present soft; Absent distended and tenderness Additional comments: Good ostomy output A/P Narrative A/P Narrative: Patient is clear for discharge from a surgical standpoint. Time Spent With Patient Time: Total time spent is greater than 50% in coordination of care (as documented) at patient's floor/unit and/or counseling patient:
--- NOTE | 2021-01-08 13:16 | Internal Med Progress Note ---
SUBJECTIVE Subjective Patient information: Note initiated : 01/08/21 at 1:15 pm Service Date, if different from initiated Date: [] Patient: Dayanna Guo a 60 y/o F admitted on 12/27/20 for weakness, cool clammy. Chief Complaint: [] Principal diagnosis: Chronic intestinal pseudoobstruction; high output ileostomy Interval history: Principal diagnosis: Chronic intestinal pseudoobstruction; high output ileostomy Interval history: Interval history: Ms. Guo is a 60 year old F with a history of recurrent bowel obstruction and was recently discharged December 20 to custodial facility. Patient was doing well however over the last 3 days nursing staff has noticed increasing weakness/cough/fatigue malaise and inability to function. She in all probability was exposed to sick contacts. She denies headache or stacie tophobia endorses to weakness myalgia and joint aches. She denies increased ostomy output or dysuria, abdominal pain or distention. EMS was called after facility staff noticed her increasing lethargic and confused. Initial work-up was consistent with severe sepsis elevated white count/lactic acidosis without a clear source. Cultures were drawn patient was started on antibiotic coverage. Calcium at 18 with severe volume depletion. Patient was started on crystalloids. Notably she was discharged on diuretics after recent hospitalization. subsequently nephrology was consulted in light of hyp ercalcemia/potassium 5.9/acute kidney injury with a creatinine of 1.4. Per nephrology patient was started on crystalloid at 200 cc/bicarbonate drip/Kayexalate. Subsequently hospitalist service was consulted for admission At the time of evaluation patient is very lethargic drowsy and unable to open her eyes. She is barely able to verbalize and provide history. Most of history was obtained from review of medical records and ER physician. No family members present. 12/28-patient doing well. Calcium down to 12 from 18. More lucid alert. Bisphosphonates given today. Fever defervesced. White count downtrending from 19 point 8K to 12.4. No obvious source of infection. Case discussed with nephrology. Potassium down to 4.2 post Kayexalate. Ostomy output stable. No evidence of bowel obstruction. Continue existing treatment/crystalloids and supportive management with diet and therapies. Possible transition to SNF in 48 hours. [id number] cocci in blood culture. Serratia on urine culture. Antibiotic escalated to cefepime, continue vancomycin, surveillance cultures, ec hocardiogram to rule out endocarditis. However clinically improving and improved electrolytes, creatinine 0.8, potassium 3.8, calcium down to 9.5 status post bisphosphonate. No overnight fever chills. Continue close monitoring. 12/30-patient complains of excessive ostomy output throughout the night. Could not sleep. However electrolytes improved with calcium 9.7. GPC bacteremia ID consulted. ID recommends discontinuing cefepime as unlikely Serratia as a cause of sepsis. Continue vancomycin. Echocardiogram EF 70%. No valvular vegetations noted on echocardiogram. Surgery consulted. Two-view abdominal imaging reveals nonspecific bowel gas pattern. Continue anticoagulation for PEs 12/31-patient doing better. Improved ostomy output on cholestyramine/lower dose of pyridostigmine. ID recommends continuation of vancomycin for 2 weeks as a port salvage treatment for bacteremia. Blood cultures coag negative staph. White count 11.2, phosphorus improved to 2.7 from 1.7. Tolerating diet. Ongoing therapies. 01/01-patient not feeling well this morning, persistent nausea/abdominal pain and lethargic. On crystalloids. Bicarb down to 10. Nephrology consulted. Also surgery on board for possible bowel obstruction. Continuing vancomycin for enterococcal bacteremia per ID. Worsening white count at 14.1, 01/02 Patient had low blood sugar this morning. Stomach achiness. Acidosis improved 01/03 Patient states she has nausea. A little bit of vomiting yesterday. Ostomy outp ut thicker today. 01/04 Patient feeling sick. States she is bloated and has nausea. X-ray by surgeon pending. 01/05 Feeling better today. Abdominal pain significantly improved. Slept well. 01/06 Continues to feel better today. Tolerating diet. Has NG tube in place. Electrolytes improved. 01/07 Near baseline, ostomy output has decreased with octreotide. Stable electrolytes, on track for Saturday discharge to SNF. 01/08 Stable, on track for discharge tomorrow. Review of Systems: denies headache/fever/chills/chest pain/cough/dyspnea/diarrhea. Otherwise see above. Constitutional Vitals: Vital Signs Temp Pulse Resp BP Pulse Ox 98.1 F 97 H 16 140/87 94 01/08/21 11:30 01/08/21 11:30 01/08/21 11:30 01/08/21 11:30 01/08/21 11:30 Period Temp Pulse Resp BP Sys/Archuleta Pulse Ox Last 24 Hr 97.1 F-98.4 F 74-97 14-16 131-180/85-93 94-96 Intake and Output 01/07/21 01/08/21 01/08/21 21:59 05:59 13:59 Intake Total 5669 629 8970 Output Total 1500 725 700 Balance -465 25 340 Weight 104.598 kg Intake & Output: Intake & Output 01/07/21 01/08/21 01/08/21 21:59 05:59 13:59 Intake Total 5222 849 0579 Output Total 1500 725 700 Balance -465 25 340 Weight 104.598 kg Intake: IV 1035 Sodium Acetate 25 Meq Calcium 1035 Chloride 1,000 mg Potassium Acetate 25 Meq In Sodium Chloride 0.45% 1,000 ml @ 84 mls/hr IV .[id number] [facility] Rx#: [id number] Oral 750 1040 Output: Void Amount 1000 575 350 Stool 500 150 350 Other: Meal Breakfast Percent of Meal Consumed 100% Feeding Ability Independent Urine Appearance Clear Clear Clear Urine Color Pale Pale Bright Yellow Stool Color Brown Brown Brown Stool Consistency Soft Liquid Liquid Loose Exam: General: Alert, Awake, No acute Distress, obese Eyes/N/T: EOMI, Head/Neck: neck supple, CV: RRR, No murmurs, Pulm: Clear b/l, no wheezing/rhonchi/rales Abd: soft, nontender, +BS x4, ostomy Ext: no clubbing/cyanosis, mild b/l LE mild edema Neuro: Alert, no focal deficits, moves all extremities, Skin: warm/dry OBJ DATA Labs CBC & Chem 7: 01/05/21 08:10 01/08/21 05:20 Labs: Abnormal Lab Results 01/08/21 01/07/21 01/06/21 05:20 05:19 05:03 Carbon Dioxide Anion Gap 7.0 L 6.0 L BUN 5 L Glucose 116 H 183 H 189 H Calcium 7.0 L Phosphorus 2.2 L Lactate Dehydrogenase 256 H Total Protein 5.0 L Albumin 2.7 L 2.7 L Triglycerides 185 H 01/05/21 18:11 Carbon Dioxide 21 L Anion Gap BUN Glucose 155 H Calcium 6.3 L Phosphorus 1.8 L Lactate Dehydrogenase Total Protein Albumin 2.8 L Triglycerides Meds: Medications Apixaban (Apixaban 5 Mg Tablet) 5 mg PO BID [facility] Last Admin: 01/08/21 09:37 Dose: 5 mg Documented by: Calcitriol (Calcitriol 0.25 Mcg Capsule) 0.25 mcg PO TuThSa@0900 [facility] Dextrose (Dextrose 50% 50 Ml Vial) 0 ml IV UD PRN PRN Reason: Hypoglycemia Last Admin: 01/02/21 08:15 Dose: 25 ml Documented by: Diagnostic Test (Pha) (Accu-Chek 1 Each Strip) 1 each FS ACHS [facility] Last Admin: 01/08/21 11:12 Dose: 1 each Documented by: Duloxetine HCl (Duloxetine 30 Mg Capsule) 30 mg PO BID [facility] Last Admin: 01/08/21 09:37 Dose: 30 mg Documented by: Glucose (Dextrose 31 Gm Oral.Susp) 15 gm PO PRN PRN PRN Reason: Hypoglycemia Heparin Sodium (Porcine) (Heparin Flush 10 Units/Ml 5 Ml Syringe) 5 ml IV Q12 [facility] Last Admin: 01/08/21 09:37 Dose: 5 ml Documented by: Hydralazine HCl (Hydralazine 20 Mg/Ml Vial) 10 mg IV Q4-6HP PRN PRN Reason: Hypertension Last Admin: 01/06/21 23:51 Dose: 10 mg Documented by: Magnesium Sulfate (Magnesium Sulfate) 2 gm in 50 mls @ 50 mls/hr IV UD PRN PRN Reason: MG = or < 1.7 Last Infusion: 01/06/21 17:45 Dose: Infused Documented by: Potassium Chloride 40 meq/ (Dextrose) 520 mls @ 130 mls/hr IV UD PRN PRN Reason: K+ = or < 3.5 Acetaminophen (Ofirmev) 1,000 mg in 100 mls @ 200 mls/hr IV Q8HP PRN; Protocol PRN Reason: Pain Last Infusion: 01/06/21 03:05 Dose: Infused Documented by: Vancomycin HCl 1,500 mg/ (Sodium Chloride) 500 mls @ 333.3 mls/hr IV Q48H [facility] Last Infusion: 01/07/21 11:30 Dose: Infused Documented by: Insulin Glargine (Insulin Glargine, Human 1 Unit/0.01 Ml) 5 unit SQ BID [facility] Last Admin: 01/08/21 09:37 Dose: 5 units Documented by: Insulin Human Lispro (Insulin Lispro 1 Unit/0.01 Ml Unit) 0 unit SQ [facility]; Protocol Last Admin: 01/08/21 11:13 Dose: 2 units Documented by: Levothyroxine Sodium (Levothyroxine 100 Mcg Tablet) [facility] Last Admin: 01/08/21 07:52 Dose: 200 mcg Documented by: Melatonin (Melatonin 3 Mg Tablet) 3 mg PO HSP PRN PRN Reason: Insomnia Last Admin: 01/07/21 21:20 Dose: 3 mg Documented by: Metoprolol Tartrate (Metoprolol Tartrate 5 Mg/5 Ml Vial) 5 mg IV Q5M PRN PRN Reason: Heart Rate > 140 bpm Octreotide Acetate (Octreotide Acetate 100 Mcg/Ml Vial) 100 mcg SQ TID [facility] Last Admin: 01/08/21 09:36 Dose: 100 mcg Documented by: Polyethylene Glycol (Polyethylene Glycol 3350 17 Gm Packet) 17 gm PO DAILYP PRN PRN Reason: Constipation Prednisone (Prednisone 20 Mg Tablet) [address] [facility] Last Admin: 01/08/21 09:37 Dose: 20 mg Documented by: Promethazine HCl (Promethazine 25 Mg/Ml Vial) 12.5 mg IV Q6HP PRN PRN Reason: Nausea And Vomiting Pyridostigmine [place] (Pyridostigmine [place] 10 Mg/2 Ml Ampul) 10 mg IM Q6H [facility] Last Admin: 01/08/21 13:08 Dose: 10 mg Documented by: Sodium Chloride (0.9 % Sodium Chloride 10 Ml Syringe) 10 ml IV Q12 [facility] Last Admin: 01/08/21 09:39 Dose: 10 ml Documented by: Sodium Chloride (0.9 % Sodium Chloride 10 Ml Syringe) 10 ml IV Q8 [facility] Last Admin: 01/08/21 13:09 Dose: Not Given Documented by: Vancomycin HCl (Vancomycin Per Pharmacy) 1 order IV UD [facility] A/P Narrative A/P Narrative: A: *Nausea/vomiting/abdominal pain: Suspicious for bowel obstruction or ongoing chronic abdominal issues *History of recurrent SBO follows up with Dr. Currie surgery. *Mixed gap acidosis: excessive bicarbonate loss from ostomy. -improved *High-ostomy output: -per surgery *multiple Electrolyte imbalance: improved *Acute kidney injury: resolved *Severe sepsis with evidence of endorgan dysfunction: Clinically resolved *Coag negative staph bacteremia: surveillance cultures negative so far/echocardiogram no evidence of valvular vegetation -ID recommends 2 weeks vancomycin as a port salvage treatment. 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 Awaiting final I&S to deescalate if possible -Continue anticoagulation for PE -Octreotide SQ TID -home calcium supp initially held, will defer final vit D/Calcium regimen to Nephrology -cont home prednisone/BB -continue basal (decreased for low BG), metformin held -PT as tolerated -Discharge planning to SNF probably saturday -ppx: apixaban Time Spent With Patient Time: Total time spent is greater than 50% in coordination of care (as documented) at patient's floor/unit and/or counseling patient:
--- NOTE | 2021-01-08 18:44 | Nephrology Progress Note ---
SUBJECTIVE Subjective Patient information: Note initiated : 01/08/21 at 6:23 pm Service Date, if different from initiated Date: [] Patient: Dayanna Guo 60 y/o F admitted on 12/27/20 for weakness, cool clammy. Chief Complaint: [ABD pain with increased ostomy output] Interval history: Eating and return to her "normal" GI function. Continue Pyridostigmine IM and Octreotide SQ TID No need for bicarbonate or bicitra Continue Calcitriol but stop CaCO3 for now No need for PO4 Principal diagnosis: Chronic intestinal pseudoobstruction; high output ileostomy Constitutional Vitals: Vital Signs Temp Pulse Resp BP Pulse Ox 36.9 C 88 16 163/78 93 01/08/21 16:00 01/08/21 16:00 01/08/21 16:00 01/08/21 16:00 01/08/21 16:00 Period Temp Pulse Resp BP Sys/Archuleta Pulse Ox Last 24 Hr 36.2 C-36.9 C 74-97 14-16 131-163/78-93 93-96 Intake and Output 01/08/21 01/08/21 01/08/21 05:59 13:59 21:59 Intake Total 750 1040 920 Output Total 725 700 600 Balance 25 340 320 Intake & Output: Intake & Output 01/08/21 01/08/21 01/08/21 05:59 13:59 21:59 Intake Total 750 1040 920 Output Total 725 700 600 Balance 25 340 320 Intake: Oral 750 1040 920 Output: Void Amount 575 350 600 Stool 150 350 Other: Meal Breakfast Dinner Percent of Meal Consumed 100% 100% Feeding Ability Independent Independent Urine Appearance Clear Clear Clear Urine Color Pale Bright Yellow Bright Yellow Stool Color Brown Brown Stool Consistency Liquid Liquid General appearance: no acute distress and obese Head Head exam: Present atraumatic Eye Eye exam: Present EOMI, normal appearance and PERRL; Absent periorbital swelling ENT ENT exam: Present mucous membranes moist and normal oropharynx Additional comments: No dental abnormality or mucocutaneous candidiasis Neck Neck exam: Present full ROM and normal inspection Respiratory Respiratory exam: Present normal respiratory exam and CTAB Cardiovascular Cardiovascular exam: Present normal rate and rhythm, JVD, RRR, +S1 and +S2 GI/Abdominal GI/Abdominal exam: Present normal bowel sounds Additional comments: RLQ ileostomy Extremities Exam Extremities exam: Present full ROM and pedal edema; Absent calf tenderness Neurological Exam Neurological exam: Present alert, CN II-XII intact and oriented X3 Psychiatric Psychiatric exam: Present agitated and anxious Skin Skin exam: Present dry and normal color; Absent pallor, petechiae and rash A/P Narrative A/P Narrative: 1. GI Bicarb losses are the cause based on maximally acidified urine (ie: no urinary bicarb loss) 2. Serial BMP and weekly mag and phos 3. Check TSH was actually suppressed => decrease 50% (or 75% if using IV synthroid) 4. Reducing GI fluid and bicarb losses will be fatima. (Physostigminine and octreotide could help resolve ileus but the octreotide does help reduce bicarb loss) 5. Calcium is low now due to biphosphonate therapy earlier and IV PO4 currently Calcitriolol is usually recommended as long as patient avoids dehydration 6. At a minimum she will need once or week labs upon discharge 7. Refrain from narcotics duer to their well known effects on GI motility 8. Gastrin level and 1,25 Vit D 3 levels pending 9. Definitely hypoparathyroid but no evidence of polyglandular autoimmune syndrome type I 9. No evidence of active sarcoid Time Spent With Patient Time: Total time spent is greater than 50% in coordination of care (as documented) at patient's floor/unit and/or counseling patient: Total time spent with greater than 50% in coordination of care (as documented) at patient's floor/unit and/or counseling patient:: 25 - 35 minutes
[2021-01-08] MEDS: MELATONIN 3 MG TABLET PO PRN (21:25)
[2021-01-09] MEDS: PYRIDOSTIGMINE BROMIDE 10 MG/2 ML AMPUL IM SCH ×3 (00:37→13:20)
[2021-01-09] MEDS: hydrALAZINE 20 MG/ML VIAL IV PRN (00:51)
[2021-01-09] MEDS: 0.9 % SODIUM CHLORIDE 10 ML SYRINGE IV SCH ×2 (04:29→10:53)
[2021-01-09 06:57] LABS: Albumin 2.8 gm/dL (3.2-5.2); Blood Urea Nitrogen 16 mg/dL (6-20); Calcium 9.8 mg/dL (8.6-10.4); Carbon Dioxide 28 mmol/L (22-30); Chloride 100 mmol/L (96-108); Glomerular Filtration Rate 62; Glucose 168 mg/dL (70-105); Phosphorous 3.8 mg/dL (2.5-4.5)
[2021-01-09] MEDS: LEVOTHYROXINE 100 MCG TABLET PO SCH (07:16)
--- NOTE | 2021-01-09 07:29 | Nephrology Progress Note ---
SUBJECTIVE Subjective Patient information: Note initiated : 01/09/21 at 7:28 am Service Date, if different from initiated Date: [] Patient: Dayanna Guo 60 y/o F admitted on 12/27/20 for weakness, cool clammy. Chief Complaint: [n/v/increased ostomy output with abd pain] Interval Hx: Anticipate D/C home or to facility for a bit. Laboratory Tests 01/05/21 01/05/21 01/06/21 08:10 08:10 13:14 Sodium Potassium Chloride Carbon Dioxide Anion Gap BUN Creatinine GFR Calculation Glucose Calcium Phosphorus Magnesium Albumin Angiotensin Convert Enz Pending 25-OH Vitamin D Total 12.71 L 1,25 Dihydroxy Vit D2 Pending 1,25 Dihydroxy Vit D3 Pending Gastrin Pending TSH 0.02 L Free T4 2.07 H Free T3 pg/mL 2.0 PTH Intact < 1.2 L Thyroglobulin Antibody Pending Thyroid Peroxidase Ab Pending 01/09/21 05:29 Sodium 139 Potassium 4.0 Chloride 100 Carbon Dioxide 28 Anion Gap 11.0 BUN 16 Creatinine 1.0 GFR Calculation 62 Glucose 168 H Calcium 9.8 Phosphorus 3.8 Magnesium 1.3 L Albumin 2.8 L Angiotensin Convert Enz 25-OH Vitamin D Total 1,25 Dihydroxy Vit D2 1,25 Dihydroxy Vit D3 Gastrin TSH Free T4 Free T3 pg/mL PTH Intact Thyroglobulin Antibody Thyroid Peroxidase Ab Principal diagnosis: Chronic intestinal pseudoobstruction; high output ileostomy Constitutional Vitals: Vital Signs Temp Pulse Resp BP Pulse Ox 36.6 C 96 H 18 122/73 92 01/09/21 03:38 01/09/21 04:28 01/09/21 03:38 01/09/21 04:28 01/09/21 03:38 Period Temp Pulse Resp BP Sys/Archuleta Pulse Ox Last 24 Hr 36.2 C-37.1 C 88-117 16-18 107-182/64-102 92-96 Intake and Output 01/08/21 01/09/21 01/09/21 21:59 05:59 13:59 Intake Total 920 500 Output Total 1425 1625 Balance -505 -1125 Weight 103.079 kg Intake & Output: Intake & Output 01/08/21 01/09/21 01/09/21 21:59 05:59 13:59 Intake Total 920 500 Output Total 1425 1625 Balance -505 -1125 Weight 103.079 kg Intake: Oral 920 500 Output: Void Amount 1200 675 Stool 225 950 Other: Meal Dinner Percent of Meal Consumed 100% Feeding Ability Independent Urine Appearance Clear Clear Urine Color Pale Pale General appearance: morbidly obese and no acute distress Head Head exam: Present normal inspection and normocephalic Eye Eye exam: Present EOMI and PERRL; Absent nystagmus and scleral icterus Additional comments: No stenosis present ENT ENT exam: Present mucous membranes moist Additional comments: No mucocutaneous candidiasis or abnormalities of dental enamel (which are present in polyglandular autoimmune disease type I) Neck Neck exam: Present full ROM and normal inspection Respiratory Respiratory exam: Present CTAB Cardiovascular Cardiovascular exam: Present normal rate and rhythm, RRR, +S1 and +S2; Absent JVD GI/Abdominal GI/Abdominal exam: Present normal bowel sounds Additional comments: RLQ ileostomy Neurological Exam Neurological exam: Present alert (Sleeping) and CN II-XII intact Psychiatric Psychiatric exam: Present normal affect and normal mood Skin Skin exam: Present dry and normal color; Absent pallor, petechiae and rash A/P Assessment and plan (1) Hypoparathyroidism, unspecified: Status: Acute Comment: Using low dose calcitriol and weekly Ca/PO4 measurements Needs some Vit D 2 as well Qualifiers: Hypoparathyroidism type: unspecified Qualified Code(s): E20.9 - Hypoparathyroidism, unspecified (2) Ileostomy status: Status: Acute Comment: Decreased ostomy output looks like SBO clinically and radiographically Keep hydrated PRN electrolyte replacement, juan ramon keep K >4.0 (3) Myasthenia gravis: Status: Chronic Comment: Prednisone dependent at 20 mg daily. In association with thyoma ~20 yrs [employer] Cholinesterase inhibitor IM and/or PO (4) Metabolic acidosis with normal anion gap and failure of bicarbonate regeneration: Status: Acute Comment: Resolved No need for Bibarb or Bicitra as Octreotide appears to be working. (5) Hyponatremia with decreased serum osmolality: Status: Acute Comment: Avoid hypotonic fluids IV (6) Hypophosphatemia: Status: Acute Comment: Until Ca corrected, leave alone (7) Chronic intestinal pseudo-obstruction: Status: Chronic Comment: If no mechanical obstruction, patient says cholinesterase inhibitors usually works Linzess is another possibility Octreotide has helped in children (8) Hypothyroidism: Status: Chronic Comment: Over Rx, decrease to synthroid 200 ug per day and follow TSH and T4 Qualifiers: Hypothyroidism type: congenital with diffuse goiter Qualified Code(s): E03.0 - Congenital hypothyroidism with diffuse goiter (9) Hypocalcemia: Status: Resolved Comment: Definitely hypoparathyroid Restart Calcitriol 0.5 mg qOD CaCO3 po TID UNPREDICTABLE GI ABSORTION IS THE ISSUE Recombinent PTH sq will be trump card if needed Time Spent With Patient Time: Total time spent is greater than 50% in coordination of care (as docum ented) at patient's floor/unit and/or counseling patient: Total time spent with greater than 50% in coordination of care (as documented) at patient's floor/unit and/or counseling patient:: Greater than 35 minutes
[2021-01-09] MEDS: INSULIN LISPRO 1 UNIT/0.01 ML UNIT SQ SCH ×2 (07:36→11:39)
[2021-01-09] MEDS: ACETAMINOPHEN 1,000 MG/100 ML BAG IV PRN (07:41)
[2021-01-09] MEDS: predniSONE 20 MG TABLET PO SCH (08:20)
[2021-01-09] MEDS ORDERED: MAGNESIUM SULFATE 2 GM/50 ML BAG IV ONE (08:22)
--- NOTE | 2021-01-09 08:23 | Discharge Summary ---
Discharge Provider Provider Patient information: Note initiated : 01/09/21 at 8:18 am Service Date, if different from initiated Date: [] Patient: Dayanna Guo 60 y/o F admitted on 12/27/20 for weakness, cool clammy. Chief Complaint: [] Date of admission: 12/27/20 21:27 Discharge date: 01/09/21 Primary care physician: Douglas Haque Consults: 12/27/20 Consult to Physician [CONS] Stat Comment: Consulting Provider: Prince Sullivan Reason For Exam: Physician to Consult Consult to Physician [CONS] Stat Comment: Consulting Provider: Bertha Currie Reason For Exam: Physician to Consult 12/30/20 08:35 Consult to Physician [CONS] Routine Comment: Consulting Provider: Deep Rubio Reason For Exam: Physician to Consult 01/01/21 08:12 Consult to Physician [CONS] Routine Comment: Consulting Provider: Rosemary Olson Reason For Exam: Physician to Consult Discharge Meds Discharge Medications Home Medications duloxetine 30 mg PO BID 11/30/16 [History Confirmed 12/27/20 Last Taken 12/13/20 08:00] insulin glargine 10 unit SQ BID 09/30/19 [History Confirmed 12/27/20 Last Taken 12/13/20 08:00] magnesium oxide 400 mg PO BID 12/13/19 [History Confirmed 12/27/20 Last Taken 12/13/20 08:00] ondansetron 4 mg SL Q4HP PRN 12/24/19 [History Confirmed 12/27/20 Last Taken 12/13/20 14:00] promethazine [address] Q6HP PRN 12/24/19 [History Confirmed 12/27/20 Last Taken 02/21/20 22:30] pyridostigmine bromide 5 mg/mL injection solution 10 mg IM Q6H #240 ml 01/04/20 [Rx Confirmed 12/27/20 Last Taken 11/26/20] metformin 500 mg PO BID 07/12/20 [History Confirmed 12/27/20 Last Taken 12/13/20 08:00] syringe with needle 3 mL 25 gauge x 1" See Rx Instructions .ROUTE .COMPLEX #100 unspecified 08/31/20 [Rx Confirmed 12/27/20 Last Taken 11/23/20] acetaminophen 1,000 mg PO Q6HP PRN 09/14/20 [History Confirmed 12/27/20 Last Taken 1 Day Ago ~12/13/20 1000 mg] prednisone 20 mg PO QAMCC 09/14/20 [History Confirmed 12/27/20 Last Taken 12/13/20 08:00] filter needles 19 x 1 1/2" #100 each 10/19/20 [Rx Confirmed 12/27/20 Last Taken Unknown] promethazine 25 mg tablet 25 mg PO Q6HP PRN #60 tab 11/24/20 [Rx Confirmed 12/27/20 Last Taken 12/06/20 08:00] Accu-Chek 1 each FS BID 12/14/20 [History Confirmed 12/27/20 Last Taken 12/13/20 08:00] metoprolol succinate 50 mg PO DAILY 12/27/20 [History Confirmed 12/27/20 Last Taken Unknown] apixaban [Eliquis] 5 mg PO BID 150 Days #60 tab 01/09/21 [Rx Last Taken Unknown] calcitriol 0.25 mcg PO TuThSa@0900 #30 cap 01/09/21 [Rx Last Taken Unknown] levothyroxine 200 mcg PO QAMAC #30 tab 01/09/21 [Rx Last Taken Unknown] octreotide acetate 100 mcg SUBCUT TID #25 ml 01/09/21 [Rx Last Taken Unknown] prednisone 20 mg PO QAMCC #30 tab 01/09/21 [Rx Last Taken Unknown] vancomycin in 0.9 % sodium chl 1.5 g IV Q48H 4 Days #500 ml 01/09/21 [Rx Last Taken Unknown] COURSE Hospital Course Hospital course: Ms. Guo is a 60 year old F with a history of recurrent bowel obstruction and was recently discharged December [facility] to [facility]. Patient was doing well however over the last 3 days nursing staff has noticed increasing weakness/cough/fatigue malaise and inability to function. She in all probability was exposed to sick contacts. She denies headache or photophobia endorses to weakness myalgia and joint aches. She denies increased ostomy output or dysuria, abdominal pain or distention. EMS was called after facility staff noticed her increasing lethargic and confused. Initial work-up was consistent with severe sepsis elevated white count/lactic acidosis without a clear source. Cultures were drawn patient was started on antibiotic coverage. Calcium at 18 with severe volume depletion. Patient was started on crystalloids. Notably she was discharged on diuretics after recent hospitalization. subsequently nephrology was consulted in light of hypercalcemia/potassium 5.9/acute kidney injury with a creatinine of 1.4. Per nephrology patient was started on crystalloid at 200 cc/bicarbonate drip/Kayexalate. Subsequently hospitalist service was consulted for admission At the time of evaluation patient is very lethargic drowsy and unable to open her eyes. She is barely able to verbalize and provide history. Most of history was obtained from review of medical records and ER physician. No family members present. 12/28-patient doing well. Calcium down to 12 from 18. More lucid alert. Bisphosphonates given today. Fever defervesced. White count downtrending from 19 point 8K to 12.4. No obvious source of infection. Case discussed with nephrology. Potassium down to 4.2 post Kayexalate. Ostomy output stable. No evidence of bowel obstruction. Continue existing treatment/crystalloids and supportive management with diet and therapies. Possible transition to SNF in 48 hours. [id number] cocci in blood culture. Serratia on urine culture. Antibiotic escalated to cefepime, continue vancomycin, surveillance cultures, echocardiogram to rule out endocarditis. However clinically improving and improved electrolytes, creatinine 0.8, potassium 3.8, calcium down to 9.5 status post bisphosphonate. No overnight fever chills. Continue close monitoring. 12/30-patient complains of excessive ostomy output throughout the night. Could not sleep. However electrolytes improved with calcium 9.7. [facility] bacteremia ID consulted. ID recommends discontinuing cefepime as unlikely Serratia as a cause of sepsis. Continue vancomycin. Echocardiogram EF 70%. No valvular vegetations noted on echocardiogram. Surgery consulted. Two-view abdominal imaging reveals nonspecific bowel gas pattern. Continue anticoagulation for PEs 12/31-patient doing better. Improved ostomy output on cholestyramine/lower dose of pyridostigmine. ID recommends continuation of vancomycin for 2 weeks as a port salvage treatment for bacteremia. Blood cultures coag negative staph. White count 11.2, phosphorus improved to 2.7 from 1.7. Tolerating diet. On going therapies. 01/01-patient not feeling well this morning, persistent nausea/abdominal pain and lethargic. On crystalloids. Bicarb down to 10. Nephrology consulted. Also surgery on board for possible bowel obstruction. Continuing vancomycin for enterococcal bacteremia per ID. Worsening white count at 14.1, 01/02 Patient had low blood sugar this morning. Stomach achiness. Acidosis improved 01/03 Patient states she has nausea. A little bit of vomiting yesterday. Ostomy output thicker today. 01/04 Patient feeling sick. States she is bloated and has nausea. X-ray by surgeon pending. 01/05 Feeling better today. Abdominal pain significantly improved. Slept well. 01/06 Continues to feel better today. Tolerating diet. Has NG tube in place. Electrolytes improved. 01/07 Near baseline, ostomy output has decreased with octreotide. Stable electrolytes, on track for Saturday discharge to SNF. 01/08 Stable, on track for discharge tomorrow. 01/09 Discharged to SNF with 4 more days of Vancomycin IV for port salvage therapy followed by repeat blood culture from port and ID follow up. Will treated PE with Eliquis for 6 months for first-time PE. Seems like an unprovoked PE. Decreased dose of Calcitriol at discharge. Discharged on Prednisone 20 mg daily which she says she was taking before admission. Will try to get her to see her neurologist after discharge to see if that is the appropriate dose of maybe can be decreased. Continued Octreotide SQ TID to reduce ostomy output, has been effective this hospitalization. Decreased Levothyroxine dose to 200 mcg daily, TSH was .02. Post discharge recommendations; Monitor chemistry panel at least weekly so electrolyte imbalance issue can be cause early. Follow up blood culture after completing Vancomycin IV for port salvage therapy. Follow up with infectious disease in clinic. Follow up with neurology for myasthenia gravis management. Follow up with PCP Labs-weekly chemistry panel for several weeks, TSH in about 6 weeks, d-dimer near end of anticoagulation period in about 6 months. Discharge diagnosis: Sepsis due to UTI Secondary discharge diagnosis: Acute kidney injury Pulmonary embolism Coagulase negative bacteremia concerning for port contamination Hypercalcemia High ostomy output Hypothyroidism Myasthenia gravis Obesity Time Spent with Patient Time attestation: Total time spent providing and/or coordinating discharge services: EXAM Constitutional Vitals: Temp Pulse Resp BP Pulse Ox 98.2 F 111 H 18 125/70 94 01/09/21 07:54 01/09/21 07:54 01/09/21 07:54 01/09/21 07:54 01/09/21 07:54 Additional findings Additional findings: Head: Atraumatic, normal inspection. Eyes: normal appearance, no scleral icterus. Neck: full ROM Respiratory: no respiratory distress, port present left upper chest Cardiovascular: normal rate and rhythm, S1, S2. GI/Abdominal: ostomy, nontender, no guarding. Extremities: full range of motion, nontender. Neurological: CN II-XII intact, intact motor, intact sensation. Psychiatric: normal mood. Skin: warm, normal color Discharge Data Data Completed and Pending Labs on day of discharge: Labs from last 24 hours 01/09/21 05:29 Sodium 139 Potassium 4.0 Chloride 100 Carbon Dioxide 28 Anion Gap 11.0 BUN 16 Creatinine 1.0 GFR Calculation 62 Glucose 168 H Calcium 9.8 Phosphorus 3.8 Magnesium 1.3 L Albumin 2.8 L Discharge Plan Patient/Caregiver Discharge Instructions Activity: as per physical therapy Diet: Regular Diet and Consistent Carbohydrate Prescriptions: New calcitriol 0.25 mcg Capsule 0.25 mcg PO TuThSa@0900 Qty: 30 RF: 3 Eliquis 5 mg Tablet 5 mg PO BID 150 Days Qty: 60 RF: 6 octreotide acetate 100 mcg/mL Solution 100 mcg subcut TID Qty: 25 RF: 4 levothyroxine 100 mcg Tablet 200 mcg PO QAMAC Qty: 30 RF: 3 vancomycin in 0.9 % sodium chl 1.5 gram/250 mL solution 1.5 g IV Q48H 4 Days Qty: 500 RF: 0 prednisone 20 mg Tablet 20 mg PO QAMCC Qty: 30 RF: 0 Continued pyridostigmine bromide 5 mg/mL solution 10 mg IM Q6H Qty: 240 RF: 5 duloxetine 30 MG capsule 30 mg PO BID RF: 0 insulin glargine 1 UNIT/0.01 ML unit 10 unit SQ BID RF: 0 acetaminophen 325 MG tablet 1,000 mg PO Q6HP PRN (Reason: Pain/Fever > 101) RF: 0 Accu-Chek 1 EACH strip 1 each FS BID RF: 0 Discontinued furosemide [Lasix] 20 mg tablet 20 mg PO QDAY Qty: 30 RF: 1 levothyroxine 125 MCG tablet 250 mcg PO QAMAC RF: 0 calcitriol 0.25 MCG capsule See Rx Instructions .ROUTE .COMPLEX RF: 0 cyclobenzaprine 10 MG tablet 10 mg PO BIDP PRN (Reason: Spasms) RF: 0 gabapentin 300 mg capsule 300 mg PO BID RF: 0 calcium carbonate [Tums 500] 500 mg calcium (1,250 mg) Tablet,Chewable 500 mg PO TID RF: 0 No Action syringe with needle [BD Luer-Archie Syringe] 3 mL 25 gauge x 1" syringe See Rx Instructions .ROUTE .COMPLEX Qty: 100 RF: 4 (DME) filter needles 19 x 1 1/2" 19 x 1 1/2 " needle See Rx Instructions .ROUTE .MEDSUPPLY Qty: 100 RF: 1 promethazine 25 mg tablet 25 mg PO Q6HP PRN (Reason: Nausea) Qty: 60 RF: 3 magnesium oxide 250 MG tablet 400 mg PO BID RF: 0 promethazine 25 MG suppository [address] Q6HP PRN (Reason: nausea vomitting) RF: 0 ondansetron 4 MG tablet 4 mg SL Q4HP PRN (Reason: Nausea) RF: 0 metformin 500 MG tablet 500 mg PO BID RF: 0 prednisone 20 MG tablet 20 mg PO QAC RF: 0 metoprolol succinate 50 mg Capsule,Sprinkle,Er 24hr 50 mg PO DAILY RF: 0 Other Ambulatory Orders: Blood Culture (Routine) Timeframe: 20210116 Location: None Selected Ordered By: Franklin Rahman Follow Up Plan Follow up with: Douglas Haque MD [Primary Care Provider] - Deep Rubio MD [Physician] - (Follow up for port salvage therapy. Blood culture grew coagulase negative staph. ) Patient Disposition: Xfer SNF Prognosis: Fair Rehab Potential: Fair I certify that the patient requires SNF services: Yes Overall status at discharge: patient is progressing back to baseline Discharge Orders: Discharge Order (Routine); Ordered 01/09/21 Ordered By: Franklin Rahman
[2021-01-09] MEDS: APIXABAN 5 MG TABLET PO SCH (09:57)
[2021-01-09] MEDS: INSULIN GLARGINE, HUMAN 1 UNIT/0.01 ML SQ SCH (09:57)
[2021-01-09] MEDS: DULoxetine 30 MG CAPSULE PO SCH (09:57)
[2021-01-09] MEDS: OCTREOTIDE ACETATE 100 MCG/ML VIAL SQ SCH (09:57)
[2021-01-09] MEDS: VANCOMYCIN 1,500 MG in 0.9 % SODIUM CHLORIDE 500 ML IV SCH (10:58)
[2021-01-10] MEDS ORDERED: CALCITRIOL 0.25 MCG CAPSULE PO SCH (09:00)
[2021-01-10 17:42] LABS: Gastrin-SO 209 pg/mL (< OR = 100)
[2021-01-11 04:23] LABS: Angiotensin Converting Enzy-SO 37 U/L (9-67)
[2021-01-18 10:34] LABS: Thyroglobulin Autoabs 16 IU/mL (< or = 1); Thyroid Peroxidase Autoabs 3 IU/mL (<9)
== END 2021-01-09 14:05 | DRG 871 ==
LOC: ED 15:22 → ICU 21:27 → MEDSUR 12-28 18:45 → ICU 12-28 18:47 → MEDSUR 12-30 13:55
PROVIDERS: ADMIT Internal Medicine; ATTEND Internal Medicine

== ENCOUNTER 2021-01-26 21:51 | Inpatient (IN) ==
[2021-01-26] MEDS ORDERED: IOPAMIDOL 100 ML BOTTLE IV ONE (21:52)
[2021-01-26] MEDS ORDERED: morphine 2 MG/ML VIAL IV PRN (21:55)
[2021-01-26] MEDS ORDERED: ONDANSETRON 4 MG/2 ML VIAL IV ONE ×2 (21:55→23:22)
[2021-01-26] MEDS ORDERED: LACTATED RINGERS 1,000 ML IV ONE (21:55)
[2021-01-26 23:13] LABS: Basophils # (Auto) 0.08 K/mcL (0.00-0.20); Basophils % (Auto) 0.4 % (0.0-2.0); Eosinophils # (Auto) 0.09 K/mcL (0.00-0.70); Eosinophils % (Auto) 0.4 % (0.0-7.0); Hematocrit 40.8 % (36.0-48.0); Hemoglobin 13.4 g/dL (12.0-15.0); Lymphocytes # (Auto) 3.62 K/mcL (1.50-4.80); Mean Cell Volume 87.9 fL (80.0-100.0); Mean Corpuscular HGB Conc 32.8 g/dL (31.0-36.0); Mean Platelet Volume 9.4 fL (7.4-10.4); Monocytes # (Auto) 1.27 K/mcL (0.10-0.90); Monocytes % (Auto) 5.6 % (1.0-12.0); Neutrophils % (Auto) 77.6 % (38.0-78.0); Platelet Count 457 K/mcL (140-440); RBC 4.64 M/mcL (4.00-5.20); Red Cell Distribution Width 13.7 % (11.5-14.5); WBC 22.7 K/mcL (4.5-11.0)
[2021-01-26] MEDS ORDERED: metroNIDAZOLE 500 MG/100 ML BAG IV ONE (23:14)
[2021-01-26] MEDS ORDERED: cefTRIAXone 1 GM VIAL IV ONE (23:14)
[2021-01-26] MEDS ORDERED: morphine 2 MG/ML VIAL IV ONE ×2 (23:23→23:31)
[2021-01-26] MEDS ORDERED: HYDROmorphone 1 MG/ML SYRINGE IV ONE (23:30)
[2021-01-26 23:31] LABS: ALT/SGPT 26 U/L (<40); AST/SGOT 26 U/L (<32); Albumin 3.8 gm/dL (3.2-5.2); Albumin/Globulin Ratio 1.3 (1.0-2.3); Alkaline Phosphatase 137 U/L (39-117); Bilirubin,Total < 0.2 mg/dL (0.1-1.0); Blood Urea Nitrogen 47 mg/dL (6-20); Calcium 6.4 mg/dL (8.6-10.4); Carbon Dioxide 24 mmol/L (22-30); Chloride 86 mmol/L (96-108); Globulin 2.9 gm/dL (2.2-3.7); Glomerular Filtration Rate 27; Glucose 232 mg/dL (70-105)
--- NOTE | 2021-01-26 23:48 | Emergency Department Note ---
Abdominal Pain HPI General Chief Complaint: Abdominal Pain Stated Complaint: N/V Time Seen by Provider: 01/26/21 21:55 Source: EMS Mode of arrival: EMS Limitations: no limitations History of Present Illness HPI Narrative: Narrative: Patient is a 60-year-old lady who arrives emergency department by ambulance accompanied by her complaining of abdominal pain. The patient says she has been having nausea vomiting for the past several days. This is gradual in onset and had initially improved but then started worsening over the past 24 hours. She has associated poorly localized upper abdominal pain. She has had similar symptoms many times in the past due to bowel obstructions. She has had intermittently decreased output in her ostomy with small amounts of gas output today. She denies any associated fever or chills. She does have associated generalized malaise and fatigue. Related Data Home Medications Medication Instructions Recorded Confirmed duloxetine 30 mg PO BID 11/30/16 12/27/20 insulin glargine 10 unit SQ BID 09/30/19 12/27/20 magnesium oxide 400 mg PO BID 12/13/19 12/27/20 ondansetron 4 mg SL Q4HP PRN 12/24/19 12/27/20 promethazine 25 mg WI Q6HP PRN 12/24/19 12/27/20 metformin 500 mg PO BID 07/12/20 12/27/20 acetaminophen 1,000 mg PO Q6HP PRN 09/14/20 12/27/20 prednisone 20 mg PO [facility] 09/14/20 12/27/20 Accu-Chek 1 each FS BID 12/14/20 12/27/20 metoprolol succinate 50 mg PO DAILY 12/27/20 12/27/20 Previous Rx's Medication Instructions Recorded pyridostigmine bromide 5 mg/mL 10 mg IM Q6H #240 ml 01/04/20 injection solution syringe with needle 3 mL 25 gauge See Rx Instructions .ROUTE 08/31/20 x 1" .COMPLEX #100 unspecified filter needles 19 x 1 1/2" #100 each 10/19/20 promethazine 25 mg tablet 25 mg PO Q6HP PRN #60 tab 11/24/20 apixaban [Eliquis] 5 mg PO BID 150 Days #60 tab 01/09/21 calcitriol 0.25 mcg PO TuThSa@0900 #30 cap 01/09/21 levothyroxine 200 mcg PO QAMAC #30 tab 01/09/21 octreotide acetate 100 mcg SUBCUT TID #25 ml 01/09/21 prednisone 20 mg PO QAC #30 tab 01/09/21 pyridostigmine bromide [Regonol] 10 mg IM ONCE #240 ml 01/09/21 Allergies Allergy/AdvReac Type Severity Reaction Status Date / Time Sulfa (Sulfonamide Allergy Severe Anaphylaxis Verified 12/27/20 15:25 Antibiotics) adhesive tape AdvReac Mild Blister Verified 12/27/20 15:25 metoclopramide [From Reglan] AdvReac Mild Anxiety Verified 12/27/20 15:25 steri strips AdvReac Mild Blister Uncoded 12/02/19 06:48 Review of Systems ROS ROS Narrative: Narrative: All systems ED: reviewed and negative except as stated. Cardiovascular: Denies chest pain Respiratory: Denies shortness of breath PFSH Narrative Patient History Narrative: Narrative: Medical/Surgical/Family History All Active Problems (Updated 01/27/21 @ 02:30 by Darren Don DO) 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 (Acute) Myasthenia gravis (Chronic) Polyglandular autoimmune syndrome (Chronic) Sarcoidosis (Chronic) Hypothyroidism (Chronic) Hypertension (Chronic) Abnormal liver enzymes (Chronic) Chronic use of steroids (Chronic) Recurrent intestinal obstruction (Chronic) Obesity, Class II, BMI 35-39.9 (Chronic) Diabetes mellitus type 2, uncontrolled (Chronic) Chronic intestinal pseudo-obstruction (Chronic) Abdominal pain (Chronic) Chronic, continuous use of opioids (Chronic) LA (obstructive sleep apnea) (Chronic) Recurrent abdominal pain (Chronic) Low blood magnesium level (Chronic) Hyponatremia (Acute) Elevated LFTs (Acute) Small bowel obstruction (Acute) Dehydration (Acute) Primary chronic pseudo-obstruction of small intestine (Acute) UTI (urinary tract infection) (Acute) Hypocalcemia (Acute) Nausea & vomiting (Acute) Severe sepsis (Acute) 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 (Acute) Acute UTI (Acute) Hypercalcemia (Acute) COVID-19 (Acute) Acute kidney injury (Acute) Hypercalcemia (Acute) Hyponatremia (Acute) Elevated serum creatinine (Acute) Low back pain (Acute) Partial small bowel obstruction (Acute) Nausea and vomiting (Acute) Hypokalemia (Acute) Diabetes mellitus (Acute) Recurrent intestinal obstruction (Acute) Intractable abdominal pain (Acute) Intractable vomiting with nausea (Acute) Small bowel ischemia (Acute) Pneumatosis intestinalis (Acute) Right knee sprain (Acute) Generalized weakness (Acute) Hypercalcemia (Acute) Acute hyperkalemia (Acute) Leukocytosis (Acute) Acidosis, lactic (Acute) Fever of unknown origin (Acute) Metabolic acidosis with normal anion gap and failure of bicarbonate regeneration (Acute) Hyponatremia with decreased serum osmolality (Acute) Ileostomy status (Acute) Hypophosphatemia (Acute) Bacteremia (Acute) Hypoparathyroidism, unspecified (Acute) Medical History Abdominal pain Abdominal pain Abdominal wound dehiscence Abnormal liver enzymes Achalasia and cardiospasm Acute respiratory insufficiency Adverse reaction to drug Anaphylaxis Bowel obstruction 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 If no mechanical obstruction, patient says cholinesterase inhibitors usually works Linzess is another possibility Octreotide has helped in children Chronic use of steroids for myasthenia gravis; 10+ years, she started using steroids in 2002. Chronic, continuous use of opioids Need to minimize or stop as they are confusing the bowel issue Constipation due to neurogenic bowel Constipation due to pain medication therapy Dehydration Dehydration Diabetes mellitus type 2, uncontrolled Encounter for care related to Port-a-Cath Fecal impaction Foot sprain Hypercalcemia Hypertension Hypocalcemia Hyponatremia Hypothyroidism Over Rx, decrease to synthroid 200 ug per day and follow TSH and T4 Ileus Infiltrate of lung present on imaging of chest Intractable vomiting Lactic acid acidosis Low blood magnesium level Myasthenia gravis Prednisone dependent at 20 mg daily. In association with thyoma ~20 yrs [employer] Cholinesterase inhibitor IM and/or PO Nausea Nausea & vomiting Nausea & vomiting Nausea and vomiting Obesity, Class II, BMI 35-39.9 Chronic. Obstruction of descending colon LA (obstructive sleep apnea) Pancreatitis Parastomal hernia with obstruction, without gangrene Partial intestinal obstruction, unspecified as to cause Partial small bowel obstruction Pneumonia Polyglandular autoimmune syndrome I see no dental or nail dystrophy to suggest Type 1 polyglandular failure which is the only type associated with HYPOPARATHYROIDISM and no autoimmune adrenalitis. I have not read that MG is a feature and it's not clear that her thyroid disease is autoimmune in nature. So I'm skeptical of this Dx Primary chronic pseudo-obstruction of large intestine Pseudoobstruction of colon Pyelonephritis Recurrent abdominal pain Recurrent intestinal obstruction many recurrences; many surgical interventions Sarcoidosis Said to be present due to "granuloma's on hands" Check RADHA level On steroids forever for her MG Sepsis Sepsis associated hypotension Sepsis with acute hypoxic respiratory failure Severe sepsis Sigmoid volvulus Sinus tachycardia Sinus tachycardia Small bowel obstruction Small bowel obstruction Small bowel obstruction Small bowel obstruction Small bowel obstruction Small bowel obstruction Small bowel obstruction due to adhesions Small bowel obstruction due to postoperative adhesions Small bowel obstruction, partial Supraventricular tachycardia UTI (urinary tract infection) UTI (urinary tract infection) Volvulus of sigmoid colon Surgical History History of exploratory laparotomy 10/17/2017-with adhesiolysis History of exploratory laparotomy 12/01/2017-with adhesiolysis History of exploratory laparotomy 07/18/2018 History of exploratory laparotomy 08/10/2018-Exploratory laparotomy with small bowel adhesiolysis and incisional hernia repair with mesh graft History of exploratory laparotomy 11/30/2020-with total intraabdominal adhesiolysis S/P ileostomy Family History Father CAD (coronary artery disease) Mother CAD (coronary artery disease) Grandfather CVA (cerebral vascular accident) Grandmother CVA (cerebral vascular accident) Social History Smoking Status: Never smoker Alcohol Intake Frequency: does not drink Substance Use: does not use Exam Narrative Narrative: Gen -patient is awake and alert and in moderate distress due to pain. HEENT -head is atraumatic. There is no conjunctival pallor or scleral icterus. CV -S1-S2 regular rate and rhythm. Peripheral pulses are palpable. Resp -breathing is nonlabored. Lungs are clear to auscultation bilaterally. There is no cyanosis. GI - Abdomen is soft and moderately tender to palpation diffusely. There is an ostomy in the right lower quadrant with a small amount of light brown liquid stool and air present. Patient had multiple episodes of small volumes of clear or white emesis during my exam. There is no guarding or rebound tenderness. Derm -skin is warm and dry. MSK -present extremities are atraumatic. Psych -patient has appropriate affect. Neuro -patient answers questions appropriately with fluent speech. Patient moves all present extremities equally. General Limitations: no limitations Course Vital Signs Vital signs: Vital Signs Temperature 98.9 F 01/26/21 21:53 Pulse Rate 114 H 01/26/21 21:53 Respiratory Rate 18 01/26/21 21:53 Blood Pressure 143/112 01/26/21 21:53 Pulse Oximetry (%) 95 01/26/21 21:53 Temperature 98.9 F 01/27/21 02:19 Pulse Rate 113 H 01/27/21 02:19 Respiratory Rate 21 01/27/21 02:19 Blood Pressure 126/89 01/27/21 02:19 Pulse Oximetry (%) 93 01/27/21 02:19 MDM MDM Narrative Medical decision making narrative: Narrative: Patient presents with nausea vomiting similar to prior bowel obstructions. CT scan was interpreted by the overnight radiologist as demonstrating small amount of free air in the upper abdomen as well as dilated bowel loops consistent with a bowel obstruction possibly due to an incarcerated parastomal hernia. I reviewed the test results with Dr. Currie. He knows the patient quite well and does not think she requires emergent laparotomy especially given her complex abdominal history. Given her relatively benign abdominal examination I do not think she has significant perforation at this time. Dr. Currie would like the patient admitted to Dr. Sadler's service and will discussed the patient's long history with him. I also spoke with Dr. Sadler who agrees with the plan for nasogastric tube insertion and admission to his service. Patient does have a leukocytosis. Given this and her free air on CT, we did administer IV antibiotics. The nasogastric tube was placed by the patient's nurse successfully. I discussed the plan for admission with the patient and her and they are agreeable. I did consider giving the patient stress dose steroids if she is on chronic steroids but she is hemodynamically stable and I am concerned that additional corticosteroids may be detrimental given her likely already friable gastrointestinal mucosa. Critical care time I provided at least 35 minutes of critical care time. This was separate from any separately billable procedures. The patient was given IV fluids to treat her significant dehydration in the setting of a small bowel obstruction. She was given IV antibiotics to treat possible sepsis from intestinal perforation. The patient was closely monitored for response to treatment and stability of vital signs throughout their emergency department stay. Lab Data Result diagrams: 01/26/21 22:15 01/26/21 22:15 Labs: Lab Results 01/26/21 01/26/21 01/26/21 Range/Units 22:15 22:15 22:15 WBC 22.7 H (4.5-11.0) K/mcL RBC 4.64 (4.00-5.20) M/mcL Hgb 13.4 (12.0-15.0) g/dL Hct 40.8 (36.0-48.0) % MCV 87.9 (80.0-100.0) fL MCH 28.9 (26.0-34.0) pg MCHC 32.8 (31.0-36.0) g/dL RDW 13.7 (11.5-14.5) % Plt Count 457 H (140-440) K/mcL MPV 9.4 (7.4-10.4) fL Neut % (Auto) 77.6 (38.0-78.0) % Lymph % (Auto) 16.0 (15.0-49.0) % [place] % (Auto) 5.6 (1.0-12.0) % Eos % (Auto) 0.4 (0.0-7.0) % Baso % (Auto) 0.4 (0.0-2.0) % Lymph # (Auto) 3.62 (1.50-4.80) K/mcL [place] # (Auto) 1.27 H (0.10-0.90) K/mcL Eos # (Auto) 0.09 (0.00-0.70) K/mcL Baso # (Auto) 0.08 (0.00-0.20) K/mcL Absolute Neutrophils 17.61 H (1.80-8.00) K/mcL VBG Lactic Acid 3.5 H (0.5-2.0) mmol/L Sodium 123 L (133-145) mmol/L Potassium 4.4 (3.3-5.1) mmol/L Chloride 86 L (96-108) mmol/L Carbon Dioxide 24 (22-30) mmol/L Anion Gap 13.0 (8.0-16.0) BUN 47 H (6-20) mg/dL Creatinine 2.0 H (0.6-1.1) mg/dL GFR Calculation 27 Glucose 232 H (70-105) mg/dL Calcium 6.4 L (8.6-10.4) mg/dL Total Bilirubin < 0.2 (0.1-1.0) mg/dL AST 26 (<32) U/L ALT 26 (<40) U/L Alkaline Phosphatase 137 H (39-117) U/L Total Protein 6.7 (5.9-8.4) gm/dL Albumin 3.8 (3.2-5.2) gm/dL Globulin 2.9 (2.2-3.7) gm/dL Albumin/Globulin Ratio 1.3 (1.0-2.3) Lipase 86 H (7-60) U/L ED POC Tests ED POC Tests: MARA - SARS Antigen Negative Discharge Plan Patient/Caregiver Discharge Instructions Pt seen by SALES COUNSELOR/PA only: No Clinical Impression: 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 Patient Disposition: Xfer As Inpt ([facility]) Condition: Fair Discharge Date/Time: 01/27/21 01:49
[2021-01-26] MEDS ORDERED: OXYMETAZOLINE 1 SPRAY BOTTLE NAS PRN (23:56)
[2021-01-27] MEDS: LIDOCAINE 2% URO-JET 5 ML JEL.PF.APP UR ONE ×2 (00:24→00:32)
[2021-01-27] MEDS ORDERED: LACTULOSE 20 GM/30 ML ORAL.SOL PO PRN (00:46)
[2021-01-27] MEDS ORDERED: SENNOSIDES 1 TABLET PO PRN (00:46)
[2021-01-27] MEDS ORDERED: LACTATED RINGERS 1,000 ML IV ONE (00:48)
[2021-01-27] MEDS: 0.9 % SODIUM CHLORIDE 1,000 ML IV SCH ×4 (02:00→19:50)
--- NOTE | 2021-01-27 03:39 | XRay Report ---
CLINICAL INFORMATION: NG tube placement COMPARISON: None. FINDINGS: NG tube overlies the gastric body. The stomach and multiple loops of small bowel are markedly dilated. There is pneumatosis within several of the small bowel loops. Colon and distal small bowel is been resected. Ileostomy noted in the right lower quadrant. No free air. IMPRESSION: Severe recurrent distal small bowel obstruction. NG tube overlies the gastric body Interpreted and Authenticated by: All Lundberg 01/27/21
[2021-01-27] MEDS: morphine 4 MG/ML VIAL ONE ×2 (03:50→04:00)
[2021-01-27] MEDS: BENZOCAINE 1 SPRAY BOTTLE TOPICAL PRN (03:51)
[2021-01-27] MEDS: morphine 10 MG/ML VIAL IV PRN ×2 (04:00→23:35)
[2021-01-27] MEDS: 0.9 % SODIUM CHLORIDE 10 ML SYRINGE IV SCH ×3 (05:29→21:51)
[2021-01-27 07:07] LABS: Basophils # (Auto) 0.12 K/mcL (0.00-0.20); Basophils % (Auto) 0.6 % (0.0-2.0); Eosinophils # (Auto) 0.14 K/mcL (0.00-0.70); Eosinophils % (Auto) 0.7 % (0.0-7.0); Hematocrit 40.3 % (36.0-48.0); Hemoglobin 13.2 g/dL (12.0-15.0); Lymphocytes # (Auto) 3.51 K/mcL (1.50-4.80); Lymphocytes % (Auto) 16.8 % (15.0-49.0); Mean Cell Volume 88.8 fL (80.0-100.0); Mean Corpuscular HGB Conc 32.8 g/dL (31.0-36.0); Mean Platelet Volume 9.5 fL (7.4-10.4); Monocytes # (Auto) 1.71 K/mcL (0.10-0.90); Monocytes % (Auto) 8.2 % (1.0-12.0); Neutrophils % (Auto) 73.7 % (38.0-78.0); Platelet Count 407 K/mcL (140-440); RBC 4.54 M/mcL (4.00-5.20); Red Cell Distribution Width 13.5 % (11.5-14.5); WBC 20.9 K/mcL (4.5-11.0)
[2021-01-27 07:32] LABS: ALT/SGPT 24 U/L (<40); AST/SGOT 18 U/L (<32); Albumin 3.4 gm/dL (3.2-5.2); Albumin/Globulin Ratio 1.2 (1.0-2.3); Alkaline Phosphatase 125 U/L (39-117); Bilirubin,Direct < 0.2 mg/dL (0-0.3); Bilirubin,Total < 0.2 mg/dL (0.1-1.0); Blood Urea Nitrogen 50 mg/dL (6-20); Calcium 6.2 mg/dL (8.6-10.4); Carbon Dioxide 28 mmol/L (22-30); Chloride 89 mmol/L (96-108); Globulin 2.9 gm/dL (2.2-3.7); Glomerular Filtration Rate 28; Glucose 155 mg/dL (70-105); Lactate Dehydrogenase 367 U/L (135-225); Phosphorous 2.1 mg/dL (2.5-4.5); Triglycerides 582 mg/dL (<150); Uric Acid 5.9 mg/dL (2.5-8.0)
[2021-01-27] MEDS: DOCUSATE SODIUM 100 MG CAPSULE PO SCH ×2 (09:09→20:27)
[2021-01-27] MEDS: ONDANSETRON 4 MG/2 ML VIAL IV PRN (09:30)
--- NOTE | 2021-01-27 09:34 | Cat Scan Report ---
CLINICAL INFORMATION: Abdominal pain nausea and vomiting. History of recurrent small bowel obstruction COMPARISON: Chest abdomen and pelvic CT 12/27/2020 TECHNIQUE: Following enteric contrast, 80 cc of Isovue-[id number] were injected intravenously, and 60 seconds later, 0.625 mm helical slices were obtained from the mid heart through the subtrochanteric regions. Following reconstruction, 2.5 mm sagittal, coronal and axial reformatted images were processed and reviewed at bone, lung and soft tissue windows. Five minutes later, 0.625 mm helical slices were obtained from the mid heart through the kidneys and viewed at soft tissue windows.The exam was performed using radiation dose optimization techniques including, but not limited to, automated exposure control, adjustment of the mA and/or kV according to patient size and use of iterative reconstruction technique. FINDINGS: Lung bases show minimal scarring and/or atelectasis. No effusions. The visualized heart is grossly normal. Abdominal images show the gallbladder is surgically absent. Common bile duct is mildly dilated (8 mm) due to post cholecystomy state. This is stable. The liver, both adrenal glands, kidneys and spleen are normal. Mild atrophy of the pancreatic head, neck and proximal body is unchanged. Pelvic images show moderate distention of the urinary bladder. Uterus and ovaries are both normal. Patient is status post total colectomy, partial small bowel resection with Wilberto's pouch construction. There is a ileostomy in the right lower quadrant. A 5 cm parastomal hernia, containing a segment of distal small bowel, is again noted. This results in at least partial small bowel obstruction. The stomach and small bowel, proximal to this region, are moderately dilated. There is also pneumatosis of bowel wall and small amounts of free air in the nondependent anterior mesenteric cavity compatible with ischemia and small bowel perforation. Small amount of free fluid is also noted. Bone windows show chronic L4-5 spondylolisthesis with disc protrusion resulting in severe right IV foraminal narrowing impinging the exiting right L4 nerve root. IMPRESSION: 1. High-grade recurrent distal small bowel obstruction. This may be due to peristomal hernia in the right lower quadrant and/or secondary to adhesions and fibrosis within the intraperitoneal distal small bowel loops. The precise transition point is difficult identified. Stomach and proximal small bowel loops are markedly dilated with pneumatosis in the wall and small amount of free intraperitoneal air compatible with small bowel perforation. 2. Moderate distention urinary bladder. 3. Moderate pancreatic atrophy and neck and proximal body unchanged. Interpreted and Authenticated by: All Lundberg 01/27/21
[2021-01-27] MEDS: ACETAMINOPHEN 650 MG/65 ML BAG IV PRN ×2 (13:57→20:21)
--- NOTE | 2021-01-27 15:16 | General Surg History&Physical ---
HPI History of Present Illness Patient information: Note initiated : 01/27/21 at 3:15 pm Service Date, if different from initiated Date: [] Patient: Dayanna Guo a 60 y/o F admitted on 01/27/21 for N/V. Chief Complaint: Decreased ostomy output. History of present illness: Ms. Guo is a 60 year old F who is readmitted to the hospital from nursing care facility. Patient was recently discharged on 17 January 2021. She had a short stay for treatment of recurrent small bowel obstruction. She has had numerous admissions for partial small bowel obstruction, pseudoobstruction. She was tolerating diet at the time of discharge. After getting home at the facility she developed increasing abdominal pain with intractable nausea and vomiting. When seen in the emergency room radiographic findings were thought to be consistent with partial intestinal obstruction. She was treated with nasogastric tube insertion and was restarted on Regonol therapy patient subsequently had worsening symptoms and developed pneumatosis intestinalis with the free intraperitoneal air. She had an operation performed for suspected bowel obstruction with infarction however she was found to have benign pneumatosis. She did have a hostile abdomen with total intraperitoneal adhesiolysis being required postprocedure she improved and was transferred to the nursing care facility after she started having regular bowel movements and was tolerating a diet. Patient also had problems with hypoalbuminemia and lost 30 pounds during her last hospitalization. When seen in the emergency room she is noted to have significant distention of her abdomen but this distention involves the entire GI tract including stomach duodenum, ileum and jejunum. She was still having output through her stoma. It is felt that the oral pyridostigmine is not effective and the patient needs to be restarted on IM Regonol which has been effective for her in the past. History of present illness: Ms. Guo is a 60 year old F Review of Systems Review of systems: All systems are reviewed, negative other than above PFSH PFSH All Active Problems 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 (Acute) Myasthenia gravis (Chronic) Polyglandular autoimmune syndrome (Chronic) Sarcoidosis (Chronic) Hypothyroidism (Chronic) Hypertension (Chronic) Abnormal liver enzymes (Chronic) Chronic use of steroids (Chronic) Recurrent intestinal obstruction (Chronic) Obesity, Class II, BMI 35-39.9 (Chronic) Diabetes mellitus type 2, uncontrolled (Chronic) Chronic intestinal pseudo-obstruction (Chronic) Abdominal pain (Chronic) Chronic, continuous use of opioids (Chronic) LA (obstructive sleep apnea) (Chronic) Recurrent abdominal pain (Chronic) Low blood magnesium level (Chronic) Hyponatremia (Acute) Elevated LFTs (Acute) Small bowel obstruction (Acute) Dehydration (Acute) Primary chronic pseudo-obstruction of small intestine (Acute) UTI (urinary tract infection) (Acute) Hypocalcemia (Acute) Nausea & vomiting (Acute) Severe sepsis (Acute) 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 (Acute) Acute UTI (Acute) Hypercalcemia (Acute) COVID-19 (Acute) Acute kidney injury (Acute) Hypercalcemia (Acute) Hyponatremia (Acute) Elevated serum creatinine (Acute) Low back pain (Acute) Partial small bowel obstruction (Acute) Nausea and vomiting (Acute) Hypokalemia (Acute) Diabetes mellitus (Acute) Recurrent intestinal obstruction (Acute) Intractable abdominal pain (Acute) Intractable vomiting with nausea (Acute) Small bowel ischemia (Acute) Pneumatosis intestinalis (Acute) Right knee sprain (Acute) Generalized weakness (Acute) Hypercalcemia (Acute) Acute hyperkalemia (Acute) Leukocytosis (Acute) Acidosis, lactic (Acute) Fever of unknown origin (Acute) Metabolic acidosis with normal anion gap and failure of bicarbonate regeneration (Acute) Hyponatremia with decreased serum osmolality (Acute) Ileostomy status (Acute) Hypophosphatemia (Acute) Bacteremia (Acute) Hypoparathyroidism, unspecified (Acute) Medical History Abdominal pain Abdominal pain Abdominal wound dehiscence Abnormal liver enzymes Achalasia and cardiospasm Acute respiratory insufficiency Adverse reaction to drug Anaphylaxis Bowel obstruction 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 If no mechanical obstruction, patient says cholinesterase inhibitors usually works Linzess is another possibility Octreotide has helped in children Chronic use of steroids for myasthenia gravis; 10+ years, she started using steroids in 2002. Chronic, continuous use of opioids Need to minimize or stop as they are confusing the bowel issue Constipation due to neurogenic bowel Constipation due to pain medication therapy Dehydration Dehydration Diabetes mellitus type 2, uncontrolled Encounter for care related to Port-a-Cath Fecal impaction Foot sprain Hypercalcemia Hypertension Hypocalcemia Hyponatremia Hypothyroidism Over Rx, decrease to synthroid 200 ug per day and follow TSH and T4 Ileus Infiltrate of lung present on imaging of chest Intractable vomiting Lactic acid acidosis Low blood magnesium level Myasthenia gravis Prednisone dependent at 20 mg daily. In association with thyoma ~20 yrs [employer] Cholinesterase inhibitor IM and/or PO Nausea Nausea & vomiting Nausea & vomiting Nausea and vomiting Obesity, Class II, BMI 35-39.9 Chronic. Obstruction of descending colon LA (obstructive sleep apnea) Pancreatitis Parastomal hernia with obstruction, without gangrene Partial intestinal obstruction, unspecified as to cause Partial small bowel obstruction Pneumonia Polyglandular autoimmune syndrome I see no dental or nail dystrophy to suggest Type 1 polyglandular failure which is the only type associated with HYPOPARATHYROIDISM and no autoimmune adrenalitis. I have not read that MG is a feature and it's not clear that her thyroid disease is autoimmune in nature. So I'm skeptical of this Dx Primary chronic pseudo-obstruction of large intestine Pseudoobstruction of colon Pyelonephritis Recurrent abdominal pain Recurrent intestinal obstruction many recurrences; many surgical interventions Sarcoidosis Said to be present due to "granuloma's on hands" Check RADHA level On steroids forever for her MG Sepsis Sepsis associated hypotension Sepsis with acute hypoxic respiratory failure Severe sepsis Sigmoid volvulus Sinus tachycardia Sinus tachycardia Small bowel obstruction Small bowel obstruction Small bowel obstruction Small bowel obstruction Small bowel obstruction Small bowel obstruction Small bowel obstruction due to adhesions Small bowel obstruction due to postoperative adhesions Small bowel obstruction, partial Supraventricular tachycardia UTI (urinary tract infection) UTI (urinary tract infection) Volvulus of sigmoid colon Surgical History History of exploratory laparotomy 10/17/2017-with adhesiolysis History of exploratory laparotomy 12/01/2017-with adhesiolysis History of exploratory laparotomy 07/18/2018 History of exploratory laparotomy 08/10/2018-Exploratory laparotomy with small bowel adhesiolysis and incisional hernia repair with mesh graft History of exploratory laparotomy 11/30/2020-with total intraabdominal adhesiolysis S/P ileostomy Family History Father CAD (coronary artery disease) Mother CAD (coronary artery disease) Grandfather CVA (cerebral vascular accident) Grandmother CVA (cerebral vascular accident) Social History alcohol intake frequency: does not drink substance use type: does not use MEDS/ALLERGIES Home Medications and Allergies Home Medications Medication Instructions Recorded Confirmed Type duloxetine 30 mg PO BID 11/30/16 01/27/21 History insulin glargine 10 unit SQ BID 09/30/19 01/27/21 History magnesium oxide 400 mg PO BID 12/13/19 01/27/21 History ondansetron 4 mg SL Q4HP PRN 12/24/19 01/27/21 History promethazine 25 mg WA Q6HP PRN 12/24/19 01/27/21 History pyridostigmine bromide 5 mg/mL 10 mg IM Q6H #240 ml 01/04/20 01/27/21 Rx injection solution metformin 500 mg PO BID 07/12/20 01/27/21 History syringe with needle 3 mL 25 gauge See Rx Instructions .ROUTE 08/31/20 01/27/21 Rx x 1" .COMPLEX #100 unspecified prednisone 20 mg PO QAMCC 09/14/20 01/27/21 History filter needles 19 x 1 1/2" #100 each 10/19/20 01/27/21 Rx promethazine 25 mg tablet 25 mg PO Q6HP PRN #60 tab 11/24/20 01/27/21 Rx Accu-Chek 1 each FS BID 12/14/20 01/27/21 History metoprolol succinate 50 mg PO DAILY 12/27/20 01/27/21 History apixaban [Eliquis] 5 mg PO BID 150 Days #60 tab 01/09/21 01/27/21 Rx calcitriol 0.25 mcg PO TuThSa@0900 #30 cap 01/09/21 01/27/21 Rx levothyroxine 200 mcg PO QAMAC #30 tab 01/09/21 01/27/21 Rx octreotide acetate 100 mcg SUBCUT TID #25 ml 01/09/21 01/27/21 Rx acetaminophen 1,000 mg PO Q6H PRN 01/27/21 01/27/21 History alum-mag hydroxide-simeth [Maalox 30 ml PO DAILYP PRN 01/27/21 01/27/21 History Maximum Strength] bisacodyl [Dulcolax (bisacodyl)] 10 mg WA QDAY PRN 01/27/21 01/27/21 History cyclobenzaprine 10 mg PO BID PRN 01/27/21 01/27/21 History gabapentin 300 mg PO BID 01/27/21 01/27/21 History magnesium hydroxide [Milk of 400 mg PO QDAY PRN 01/27/21 01/27/21 History Magnesia] promethazine 50 mg PO DAILY PRN 01/27/21 01/27/21 History simethicone 80 mg PO QDAY PRN 01/27/21 01/27/21 History sodium phosphates [Fleet Enema] 118 ml WA DAILYP PRN 01/27/21 01/27/21 History Allergies Allergy/AdvReac Type Severity Reaction Status Date / Time Sulfa (Sulfonamide Allergy Severe Anaphylaxis Verified 12/27/20 15:25 Antibiotics) adhesive tape AdvReac Mild Blister Verified 12/27/20 15:25 metoclopramide [From Reglan] AdvReac Mild Anxiety Verified 12/27/20 15:25 steri strips AdvReac Mild Blister Uncoded 12/02/19 06:48 Physical Examination Vital Signs Vital signs: Temp Pulse Resp BP Pulse Ox 97.8 F 113 H 26 H 124/77 99 01/27/21 12:01 01/27/21 14:01 01/27/21 14:01 01/27/21 14:01 01/27/21 14:01 General physical appearance General physical exam: well developed, well nourished and no distress Eyes Eye exam: PERRL and normal ocular movement ENT ENT exam: normal pinna, normal nares, normal mucosa, no hearing loss and no congestion Head Head exam IM: Present atraumatic and normocephalic Neck Neck exam: no masses, no bruits, trachea midline, no lymphadenopathy and no veno us distension Cardiovascular Cardiovascular exam IM: Present normal rate and rhythm Respiratory Respiratory exam: normal expansion, normal respiratory effort, clear to percussion and clear to auscultation Abdomen Abdomen: Present soft, non tender and distended Hernia: Present none Genitourinary Genitourinary (Female): Present normal external genitalia Rectum Rectum: Present normal sphincter tone, no hemorrhoids, no tenderness, no masses and no bleeding Integumentary Integumentary: Present no rash, no growths and no abnormal pigmentation Neurologic Neurologic: Present normal coordination and normal sensation Musculoskeletal Musculoskeletal: Present normal gait and normal posture Psychiatric Psychiatric: Present oriented to time, oriented to person, oriented to place, speech is normal and memory intact Additional Findings Additional exam: Ostomy is functioning with minimal output. Results Labs Result diagrams: 01/27/21 05:40 01/27/21 05:40 Labs: Abnormal lab results 01/26/21 01/26/21 01/26/21 Range/Units 22:15 22:15 22:15 WBC 22.7 H (4.5-11.0) K/mcL Plt Count 457 H (140-440) K/mcL [place] # (Auto) 1.27 H (0.10-0.90) K/mcL Absolute Neutrophils 17.61 H (1.80-8.00) K/mcL VBG Lactic Acid 3.5 H (0.5-2.0) mmol/L Sodium 123 L (133-145) mmol/L Chloride 86 L (96-108) mmol/L BUN 47 H (6-20) mg/dL Creatinine 2.0 H (0.6-1.1) mg/dL Glucose 232 H (70-105) mg/dL Calcium 6.4 L (8.6-10.4) mg/dL Phosphorus (2.5-4.5) mg/dL Alkaline Phosphatase 137 H (39-117) U/L Lactate Dehydrogenase (135-225) U/L Triglycerides (<150) mg/dL Lipase 86 H (7-60) U/L 01/27/21 01/27/21 Range/Units 05:40 05:40 WBC 20.9 H (4.5-11.0) K/mcL Plt Count (140-440) K/mcL [place] # (Auto) 1.71 H (0.10-0.90) K/mcL Absolute Neutrophils 15.45 H (1.80-8.00) K/mcL VBG Lactic Acid (0.5-2.0) mmol/L Sodium 128 L (133-145) mmol/L Chloride 89 L (96-108) mmol/L BUN 50 H (6-20) mg/dL Creatinine 1.9 H (0.6-1.1) mg/dL Glucose 155 H (70-105) mg/dL Calcium 6.2 L (8.6-10.4) mg/dL Phosphorus 2.1 L (2.5-4.5) mg/dL Alkaline Phosphatase 125 H (39-117) U/L Lactate Dehydrogenase 367 H (135-225) U/L Triglycerides 582 H (<150) mg/dL Lipase (7-60) U/L Diabetes panel 01/26/21 01/27/21 Range/Units 22:15 05:40 Sodium 123 L 128 L (133-145) mmol/L Potassium 4.4 4.0 (3.3-5.1) mmol/L Chloride 86 L 89 L (96-108) mmol/L Carbon Dioxide 24 28 (22-30) mmol/L BUN 47 H 50 H (6-20) mg/dL Creatinine 2.0 H 1.9 H (0.6-1.1) mg/dL Glucose 232 H 155 H (70-105) mg/dL Calcium 6.4 L 6.2 L (8.6-10.4) mg/dL AST 26 18 (<32) U/L ALT 26 24 (<40) U/L Alkaline Phosphatase 137 H 125 H (39-117) U/L Total Protein 6.7 6.3 (5.9-8.4) gm/dL Albumin 3.8 3.4 (3.2-5.2) gm/dL Triglycerides 582 H (<150) mg/dL Calcium panel 01/26/21 01/27/21 Range/Units 22:15 05:40 Calcium 6.4 L 6.2 L (8.6-10.4) mg/dL Phosphorus 2.1 L (2.5-4.5) mg/dL Albumin 3.8 3.4 (3.2-5.2) gm/dL Pituitary panel 01/26/21 01/27/21 Range/Units 22:15 05:40 Sodium 123 L 128 L (133-145) mmol/L Potassium 4.4 4.0 (3.3-5.1) mmol/L Chloride 86 L 89 L (96-108) mmol/L Carbon Dioxide 24 28 (22-30) mmol/L BUN 47 H 50 H (6-20) mg/dL Creatinine 2.0 H 1.9 H (0.6-1.1) mg/dL Glucose 232 H 155 H (70-105) mg/dL Calcium 6.4 L 6.2 L (8.6-10.4) mg/dL Adrenal panel 01/26/21 01/27/21 Range/Units 22:15 05:40 Sodium 123 L 128 L (133-145) mmol/L Potassium 4.4 4.0 (3.3-5.1) mmol/L Chloride 86 L 89 L (96-108) mmol/L Carbon Dioxide 24 28 (22-30) mmol/L BUN 47 H 50 H (6-20) mg/dL Creatinine 2.0 H 1.9 H (0.6-1.1) mg/dL Glucose 232 H 155 H (70-105) mg/dL Calcium 6.4 L 6.2 L (8.6-10.4) mg/dL Total Bilirubin < 0.2 < 0.2 (0.1-1.0) mg/dL AST 26 18 (<32) U/L ALT 26 24 (<40) U/L Alkaline Phosphatase 137 H 125 H (39-117) U/L Total Protein 6.7 6.3 (5.9-8.4) gm/dL Albumin 3.8 3.4 (3.2-5.2) gm/dL All other labs normal. A/P Narrative A/P Narrative: Patient is being managed with recurrent chronic partial bowel obstruction versus pseudoobstruction. We will make her n.p.o., NG tube. We will restart on Regonol which has been successful with her in the past, once bowel starts function again we will slowly advance diet. Time Spent With Patient Time: Total time spent is greater than 50% in coordination of care (as documented) at patient's floor/unit and/or counseling patient:
[2021-01-27] MEDS ORDERED: 0.9 % SODIUM CHLORIDE 10 ML SYRINGE IV PRN (21:52)
[2021-01-28] MEDS: ACETAMINOPHEN 650 MG/65 ML BAG IV PRN ×3 (02:21→19:01)
[2021-01-28] MEDS: 0.9 % SODIUM CHLORIDE 1,000 ML IV SCH ×4 (04:57→21:03)
[2021-01-28] MEDS: morphine 10 MG/ML VIAL IV PRN ×4 (05:01→20:16)
[2021-01-28] MEDS: 0.9 % SODIUM CHLORIDE 10 ML SYRINGE IV SCH ×5 (06:46→20:50)
[2021-01-28 07:44] LABS: Basophils # (Auto) 0.03 K/mcL (0.00-0.20); Basophils % (Auto) 0.2 % (0.0-2.0); Eosinophils # (Auto) 0.21 K/mcL (0.00-0.70); Eosinophils % (Auto) 1.7 % (0.0-7.0); Hematocrit 32.4 % (36.0-48.0); Hemoglobin 10.7 g/dL (12.0-15.0); Lymphocytes # (Auto) 1.61 K/mcL (1.50-4.80); Lymphocytes % (Auto) 12.9 % (15.0-49.0); Mean Cell Volume 89.3 fL (80.0-100.0); Mean Platelet Volume 9.5 fL (7.4-10.4); Monocytes # (Auto) 0.81 K/mcL (0.10-0.90); Monocytes % (Auto) 6.5 % (1.0-12.0); Neutrophils % (Auto) 78.7 % (38.0-78.0); Platelet Count 264 K/mcL (140-440); RBC 3.63 M/mcL (4.00-5.20); Red Cell Distribution Width 13.8 % (11.5-14.5); WBC 12.5 K/mcL (4.5-11.0)
[2021-01-28] MEDS: DOCUSATE SODIUM 100 MG CAPSULE PO SCH ×2 (07:55→20:49)
[2021-01-28 08:17] LABS: ALT/SGPT 16 U/L (<40); AST/SGOT 15 U/L (<32); Albumin 2.5 gm/dL (3.2-5.2); Alkaline Phosphatase 101 U/L (39-117); Bilirubin,Direct < 0.2 mg/dL (0-0.3); Bilirubin,Total < 0.2 mg/dL (0.1-1.0); Blood Urea Nitrogen 30 mg/dL (6-20); Calcium 5.1 mg/dL (8.6-10.4); Carbon Dioxide 28 mmol/L (22-30); Chloride 96 mmol/L (96-108); Globulin 2.5 gm/dL (2.2-3.7); Glomerular Filtration Rate 49; Glucose 112 mg/dL (70-105); Lactate Dehydrogenase 331 U/L (135-225); Phosphorous 3.3 mg/dL (2.5-4.5); Triglycerides 336 mg/dL (<150)
[2021-01-28] MEDS ORDERED: MAGNESIUM SULFATE 2 GM/50 ML BAG IV PRN (08:28)
[2021-01-28] MEDS: ONDANSETRON 4 MG/2 ML VIAL IV PRN (08:34)
[2021-01-28] MEDS: CALCIUM GLUCONATE 4.65 MEQ/10 ML VIAL IV PRN ×2 (09:18→20:48)
[2021-01-28] MEDS ORDERED: ACETAMINOPHEN 500 MG TABLET PO PRN (10:10)
[2021-01-28] MEDS ORDERED: MAG HYDROX/AL HYDROX/SIMETH 30 ML ORAL.SUSP PO PRN (10:10)
[2021-01-28] MEDS ORDERED: MAGNESIUM HYDROXIDE 30 ML ORAL.SUSP PO PRN (10:10)
[2021-01-28] MEDS ORDERED: BISACODYL 10 MG SUPP.RECT PR PRN (10:10)
--- NOTE | 2021-01-28 10:10 | General Surgery Progress Note ---
SUBJECTIVE Subjective Patient information: Note initiated : 01/28/21 at 10:08 am Service Date, if different from initiated Date: [] Patient: Dayanna Guo 60 y/o F admitted on 01/27/21 for N/V. Chief Complaint: [] Interval history: Patient feels much improved this morning. Small amount of the ostomy output overnight. Constitutional Vitals: Vital Signs Temp Pulse Resp BP Pulse Ox 98.2 F 136 H 16 131/67 100 01/28/21 08:01 01/28/21 08:11 01/28/21 08:11 01/28/21 08:01 01/28/21 08:11 Period Temp Pulse Resp BP Sys/[place] Pulse Ox Last 24 Hr 97.2 F-98.2 F 103-136 11-29 102-139/65-105 96-100 Intake and Output 01/27/21 01/28/21 01/28/21 21:59 05:59 13:59 Intake Total 1250 1215 Output Total 1875 600 Balance -625 615 Weight 217 lb 3.2 oz Intake & Output: Intake & Output 01/27/21 01/28/21 01/28/21 21:59 05:59 13:59 Intake Total 1250 1215 Output Total 1875 600 Balance -625 615 Weight 217 lb 3.2 oz Intake: IV 1130 1065 Sodium Chloride 0.9% 1,000 ml @ 1000 1000 125 mls/hr IV .Q8H [facility] Rx#: [id number] Oral 120 150 Output: Gastric Drainage 1075 325 Right Nare [place] 1075 325 Void Amount 200 275 Stool 600 0 Other: Urine Appearance Sediment Urine Color Bright Yellow Urine Odor Strong Stool Size Small Stool Color Yellow Stool Consistency Loose General appearance: cooperative GI/Abdominal GI/Abdominal exam: Present soft and tenderness; Absent distended A/P Narrative A/P Narrative: Surgeries or bleeding partial small bowel obstruction, improvement in white blood cell count. We will clamp NG tube, start clear liquid diet and restart home medications. Time Spent With Patient Time: Total time spent is greater than 50% in coordination of care (as documented) at patient's floor/unit and/or counseling patient:
--- NOTE | 2021-01-28 10:15 | Internal Medicine Consult Note ---
HPI Data of Consult Primary Care Provider: Douglas Haque Consult Narrative cc:: CC: Calvin Sadler MD Dayanna is a 60-year-old lady with history of recurrent bowel obstructions who presents to the ER from SNF with abdominal pain/intractable nausea associated vomiting. Surgery was consulted and patient was started on NG decompression and subsequently admitted under surgical service for management of recurrent SBO. Notably patient has had numerous hospitalization due to recurrent small bowel obstruction in the recent months. Hospital service was consulted this morning for the exclusive purpose of electrolyte management which includes low potassium, calcium and magnesium and acute kidney injury. At the time of my visit patient is alert and oriented. She has copious amount of bilious NG output in excess of 3000 cc since admission. She denies abdominal pain. Blood profile 01/28 calcium 5.1, potassium 3.2, magnesium 1.4 likely secondary to gastric losses via NG aspirate. She does carry history of chronic hypocalcemia from short gut syndrome and has been on outpatient oral calcium. She denies fever, bloody ostomy output, cough or shortness of breath. Review of systems 10 point review system was performed and is negative except for ones discussed above PFSH PFSH All Active Problems 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 (Acute) Myasthenia gravis (Chronic) Polyglandular autoimmune syndrome (Chronic) Sarcoidosis (Chronic) Hypothyroidism (Chronic) Hypertension (Chronic) Abnormal liver enzymes (Chronic) Chronic use of steroids (Chronic) Recurrent intestinal obstruction (Chronic) Obesity, Class II, BMI 35-39.9 (Chronic) Diabetes mellitus type 2, uncontrolled (Chronic) Chronic intestinal pseudo-obstruction (Chronic) Abdominal pain (Chronic) Chronic, continuous use of opioids (Chronic) LA (obstructive sleep apnea) (Chronic) Recurrent abdominal pain (Chronic) Low blood magnesium level (Chronic) Hyponatremia (Acute) Elevated LFTs (Acute) Small bowel obstruction (Acute) Dehydration (Acute) Primary chronic pseudo-obstruction of small intestine (Acute) UTI (urinary tract infection) (Acute) Hypocalcemia (Acute) Nausea & vomiting (Acute) Severe sepsis (Acute) 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 (Acute) Acute UTI (Acute) Hypercalcemia (Acute) COVID-19 (Acute) Acute kidney injury (Acute) Hypercalcemia (Acute) Hyponatremia (Acute) Elevated serum creatinine (Acute) Low back pain (Acute) Partial small bowel obstruction (Acute) Nausea and vomiting (Acute) Hypokalemia (Acute) Diabetes mellitus (Acute) Recurrent intestinal obstruction (Acute) Intractable abdominal pain (Acute) Intractable vomiting with nausea (Acute) Small bowel ischemia (Acute) Pneumatosis intestinalis (Acute) Right knee sprain (Acute) Generalized weakness (Acute) Hypercalcemia (Acute) Acute hyperkalemia (Acute) Leukocytosis (Acute) Acidosis, lactic (Acute) Fever of unknown origin (Acute) Metabolic acidosis with normal anion gap and failure of bicarbonate regeneration (Acute) Hyponatremia with decreased serum osmolality (Acute) Ileostomy status (Acute) Hypophosphatemia (Acute) Bacteremia (Acute) Hypoparathyroidism, unspecified (Acute) Medical History Abdominal pain Abdominal pain Abdominal wound dehiscence Abnormal liver enzymes Achalasia and cardiospasm Acute respiratory insufficiency Adverse reaction to drug Anaphylaxis Bowel obstruction 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 If no mechanical obstruction, patient says cholinesterase inhibitors usually works Linzess is another possibility Octreotide has helped in children Chronic use of steroids for myasthenia gravis; 10+ years, she started using steroids in 2002. Chronic, continuous use of opioids Need to minimize or stop as they are confusing the bowel issue Constipation due to neurogenic bowel Constipation due to pain medication therapy Dehydration Dehydration Diabetes mellitus type 2, uncontrolled Encounter for care related to Port-a-Cath Fecal impaction Foot sprain Hypercalcemia Hypertension Hypocalcemia Hyponatremia Hypothyroidism Over Rx, decrease to synthroid 200 ug per day and follow TSH and T4 Ileus Infiltrate of lung present on imaging of chest Intractable vomiting Lactic acid acidosis Low blood magnesium level Myasthenia gravis Prednisone dependent at 20 mg daily. In association with thyoma ~20 yrs [facility] Cholinesterase inhibitor IM and/or PO Nausea Nausea & vomiting Nausea & vomiting Nausea and vomiting Obesity, Class II, BMI 35-39.9 Chronic. Obstruction of descending colon LA (obstructive sleep apnea) Pancreatitis Parastomal hernia with obstruction, without gangrene Partial intestinal obstruction, unspecified as to cause Partial small bowel obstruction Pneumonia Polyglandular autoimmune syndrome I see no dental or nail dystrophy to suggest Type 1 polyglandular failure which is the only type associated with HYPOPARATHYROIDISM and no autoimmune adrenalitis. I have not read that MG is a feature and it's not clear that her thyroid disease is autoimmune in nature. So I'm skeptical of this Dx Primary chronic pseudo-obstruction of large intestine Pseudoobstruction of colon Pyelonephritis Recurrent abdominal pain Recurrent intestinal obstruction many recurrences; many surgical interventions Sarcoidosis Said to be present due to "granuloma's on hands" Check RADHA level On steroids forever for her MG Sepsis Sepsis associated hypotension Sepsis with acute hypoxic respiratory failure Severe sepsis Sigmoid volvulus Sinus tachycardia Sinus tachycardia Small bowel obstruction Small bowel obstruction Small bowel obstruction Small bowel obstruction Small bowel obstruction Small bowel obstruction Small bowel obstruction due to adhesions Small bowel obstruction due to postoperative adhesions Small bowel obstruction, partial Supraventricular tachycardia UTI (urinary tract infection) UTI (urinary tract infection) Volvulus of sigmoid colon Surgical History History of exploratory laparotomy 10/17/2017-with adhesiolysis History of exploratory laparotomy 12/01/2017-with adhesiolysis History of exploratory laparotomy 07/18/2018 History of exploratory laparotomy 08/10/2018-Exploratory laparotomy with small bowel adhesiolysis and incisional hernia repair with mesh graft History of exploratory laparotomy 11/30/2020-with total intraabdominal adhesiolysis S/P ileostomy Family History Father CAD (coronary artery disease) Mother CAD (coronary artery disease) Grandfather CVA (cerebral vascular accident) Grandmother CVA (cerebral vascular accident) Social History alcohol intake frequency: does not drink substance use type: does not use MEDS/ALLERGIES Home Medications and Allergies Home Medications Medication Instructions Recorded Confirmed Type duloxetine 30 mg PO BID 11/30/16 01/27/21 History insulin glargine 10 unit SQ BID 09/30/19 01/27/21 History magnesium oxide 400 mg PO BID 12/13/19 01/27/21 History ondansetron 4 mg SL Q4HP PRN 12/24/19 01/27/21 History promethazine 25 mg UT Q6HP PRN 12/24/19 01/27/21 History pyridostigmine bromide 5 mg/mL 10 mg IM Q6H #240 ml 01/04/20 01/27/21 Rx injection solution metformin 500 mg PO BID 07/12/20 01/27/21 History syringe with needle 3 mL 25 gauge See Rx Instructions .ROUTE 08/31/20 01/27/21 Rx x 1" .COMPLEX #100 unspecified prednisone 20 mg PO QAMCC 09/14/20 01/27/21 History filter needles 19 x 1 1/2" #100 each 10/19/20 01/27/21 Rx promethazine 25 mg tablet 25 mg PO Q6HP PRN #60 tab 11/24/20 01/27/21 Rx Accu-Chek 1 each FS BID 12/14/20 01/27/21 History metoprolol succinate 50 mg PO DAILY 12/27/20 01/27/21 History apixaban [Eliquis] 5 mg PO BID 150 Days #60 tab 01/09/21 01/27/21 Rx calcitriol 0.25 mcg PO TuThSa@0900 #30 cap 01/09/21 01/27/21 Rx levothyroxine 200 mcg PO QAMAC #30 tab 01/09/21 01/27/21 Rx octreotide acetate 100 mcg SUBCUT TID #25 ml 01/09/21 01/27/21 Rx acetaminophen 1,000 mg PO Q6H PRN 01/27/21 01/27/21 History alum-mag hydroxide-simeth [Maalox 30 ml PO DAILYP PRN 01/27/21 01/27/21 History Maximum Strength] bisacodyl [Dulcolax (bisacodyl)] 10 mg UT QDAY PRN 01/27/21 01/27/21 History cyclobenzaprine 10 mg PO BID PRN 01/27/21 01/27/21 History gabapentin 300 mg PO BID 01/27/21 01/27/21 History magnesium hydroxide [Milk of 400 mg PO QDAY PRN 01/27/21 01/27/21 History Magnesia] promethazine 50 mg PO DAILY PRN 01/27/21 01/27/21 History simethicone 80 mg PO QDAY PRN 01/27/21 01/27/21 History sodium phosphates [Fleet Enema] 118 ml UT DAILYP PRN 01/27/21 01/27/21 History Allergies Allergy/AdvReac Type Severity Reaction Status Date / Time Sulfa (Sulfonamide Allergy Severe Anaphylaxis Verified 12/27/20 15:25 Antibiotics) adhesive tape AdvReac Mild Blister Verified 12/27/20 15:25 metoclopramide [From Reglan] AdvReac Mild Anxiety Verified 12/27/20 15:25 steri strips AdvReac Mild Blister Uncoded 12/02/19 06:48 EXAM Constitutional Vitals: Temp Pulse Resp BP Pulse Ox 98.2 F 136 H 16 131/67 100 01/28/21 08:01 01/28/21 08:11 01/28/21 08:11 01/28/21 08:01 01/28/21 08:11 On NG decompression draining bilious output Anxious but alert Head normocephalic Oral cavity dry No ear nose discharge, NG tube Eye movement symmetrical Neck supple no lymphadenopathy S1-S2 tachycardia nonlabored breathing minimally distended/tender abdomen Lower extremity no cyanosis clubbing or joint swelling Skin no suspicious lesion Psych lethargic but no elucidation Neuro GCS 13 DATA Data Completed and Pending Labs: Labs from last 24 hours 01/28/21 01/28/21 06:55 06:55 WBC 12.5 H RBC 3.63 L Hgb 10.7 L Hct 32.4 L MCV 89.3 MCH 29.5 MCHC 33.0 RDW 13.8 Plt Count 264 MPV 9.5 Neut % (Auto) 78.7 H Lymph % (Auto) 12.9 L [place] % (Auto) 6.5 Eos % (Auto) 1.7 Baso % (Auto) 0.2 Lymph # (Auto) 1.61 [place] # (Auto) 0.81 Eos # (Auto) 0.21 Baso # (Auto) 0.03 Absolute Neutrophils 9.81 H Sodium 135 Potassium 3.2 L Chloride 96 Carbon Dioxide 28 Anion Gap 11.0 BUN 30 H Creatinine 1.2 H GFR Calculation 49 Glucose 112 H Uric Acid 6.0 Calcium 5.1 L* Phosphorus 3.3 Magnesium 1.4 L Total Bilirubin < 0.2 Direct Bilirubin < 0.2 GGT 21 AST 15 ALT 16 Alkaline Phosphatase 101 Lactate Dehydrogenase 331 H Total Protein 5.0 L Albumin 2.5 L Globulin 2.5 Albumin/Globulin Ratio 1.0 Triglycerides 336 H Preliminary micro results at discharge 01/26/21 23:50 Blood Culture - Preliminary Blood 01/26/21 23:27 Blood Culture - Preliminary Blood A/P Narrative A/P Narrative: * Recurrent small bowel obstruction managed per surgery. Currently on NG decompression/conservative treatment Hospitalist consult * Multiple electrolyte abnormalities including low calcium/potassium and magnesium. Secondary to secondary gastric losses in the setting of bowel obstruction and NG decompression. start aggressive IV replacement. Repeat labs 5 PM * Acute kidney injury secondary to volume depletion. Creatinine downtrending from 2-1.2 with crystalloids. And monitor renal function * recommend avoiding nephrotoxins * History of multifocal PE, continue Lovenox 1.5 mg/kg daily * DM type II continue sliding-scale insulin * Anxiety disorder usually on duloxetine. Continue as needed IV anxiolytics * neuropathy p.o. gabapentin on hold * History of hypothyroid oral thyroxine on hold * History of myasthenia gravis p.o. prednisone/pyridostigmine on hold. Stress dose steroid * PolyGlandular autoimmune disorder at baseline * History of hypertension hydralazine Plan * Electrolyte replacement * IV steroid * Lovenox * Monitor renal function * As needed hydralazine * Nutrition support per surgery * Therapies as tolerated Time Spent With Patient Time: Total time spent is greater than 50% in coordination of care (as documented) at patient's floor/unit and/or counseling patient:
[2021-01-28] MEDS ORDERED: PROMETHAZINE 25 MG TABLET PO PRN (10:20)
[2021-01-28] MEDS: POTASSIUM CHLORIDE 40 MEQ in DEXTROSE 5% IN WATER 500 ML IV PRN (11:31)
[2021-01-28] MEDS: CYCLOBENZAPRINE 10 MG TABLET PO PRN ×2 (11:47→20:49)
[2021-01-28] MEDS: ENOXAPARIN 150 MG/ML SYRINGE SQ SCH (11:57)
[2021-01-28 19:11] LABS: ALT/SGPT 17 U/L (<40); AST/SGOT 16 U/L (<32); Albumin 2.5 gm/dL (3.2-5.2); Albumin/Globulin Ratio 1.1 (1.0-2.3); Alkaline Phosphatase 89 U/L (39-117); Bilirubin,Direct < 0.2 mg/dL (0-0.3); Bilirubin,Total 0.2 mg/dL (0.1-1.0); Blood Urea Nitrogen 19 mg/dL (6-20); Calcium 5.6 mg/dL (8.6-10.4); Carbon Dioxide 27 mmol/L (22-30); Chloride 88 mmol/L (96-108); Globulin 2.3 gm/dL (2.2-3.7); Glomerular Filtration Rate 62; Glucose 184 mg/dL (70-105); Lactate Dehydrogenase 337 U/L (135-225); Phosphorous 1.5 mg/dL (2.5-4.5); Triglycerides 284 mg/dL (<150); Uric Acid 5.4 mg/dL (2.5-8.0)
[2021-01-28] MEDS: MAGNESIUM OXIDE 400 MG TABLET PO SCH (20:48)
[2021-01-28] MEDS: DULoxetine 30 MG CAPSULE PO SCH (20:48)
[2021-01-28] MEDS: GABAPENTIN 300 MG CAPSULE PO SCH (20:49)
[2021-01-28] MEDS ORDERED: APIXABAN 5 MG TABLET PO SCH (21:00)
[2021-01-29] MEDS: morphine 10 MG/ML VIAL IV PRN ×2 (00:25→04:32)
[2021-01-29] MEDS: 0.9 % SODIUM CHLORIDE 1,000 ML IV SCH ×5 (04:51→21:52)
[2021-01-29] MEDS: 0.9 % SODIUM CHLORIDE 10 ML SYRINGE IV SCH ×4 (05:46→20:42)
[2021-01-29 07:20] LABS: Basophils # (Auto) 0.05 K/mcL (0.00-0.20); Basophils % (Auto) 0.5 % (0.0-2.0); Eosinophils # (Auto) 0.31 K/mcL (0.00-0.70); Eosinophils % (Auto) 2.8 % (0.0-7.0); Hematocrit 32.2 % (36.0-48.0); Hemoglobin 10.4 g/dL (12.0-15.0); Lymphocytes # (Auto) 3.23 K/mcL (1.50-4.80); Lymphocytes % (Auto) 29.1 % (15.0-49.0); Mean Cell Volume 89.9 fL (80.0-100.0); Mean Corpuscular HGB Conc 32.3 g/dL (31.0-36.0); Monocytes # (Auto) 1.18 K/mcL (0.10-0.90); Monocytes % (Auto) 10.6 % (1.0-12.0); Platelet Count 255 K/mcL (140-440); RBC 3.58 M/mcL (4.00-5.20); Red Cell Distribution Width 13.6 % (11.5-14.5); WBC 11.1 K/mcL (4.5-11.0)
[2021-01-29 08:13] LABS: ALT/SGPT 17 U/L (<40); AST/SGOT 17 U/L (<32); Albumin 2.7 gm/dL (3.2-5.2); Albumin/Globulin Ratio 1.1 (1.0-2.3); Alkaline Phosphatase 98 U/L (39-117); Bilirubin,Direct < 0.2 mg/dL (0-0.3); Bilirubin,Total 0.2 mg/dL (0.1-1.0); Blood Urea Nitrogen 13 mg/dL (6-20); Calcium 5.9 mg/dL (8.6-10.4); Carbon Dioxide 26 mmol/L (22-30); Chloride 93 mmol/L (96-108); Globulin 2.5 gm/dL (2.2-3.7); Glomerular Filtration Rate 70; Glucose 259 mg/dL (70-105); Lactate Dehydrogenase 372 U/L (135-225); Triglycerides 370 mg/dL (<150); Uric Acid 4.5 mg/dL (2.5-8.0)
[2021-01-29] MEDS: MAGNESIUM OXIDE 400 MG TABLET PO SCH ×2 (08:59→20:40)
[2021-01-29] MEDS: DOCUSATE SODIUM 100 MG CAPSULE PO SCH ×2 (08:59→20:40)
[2021-01-29] MEDS: methylPREDNISolone SOD SUCC 40 MG/ML VIAL IV SCH (08:59)
[2021-01-29] MEDS: CALCIUM GLUCONATE 4.65 MEQ/10 ML VIAL IV PRN (08:59)
[2021-01-29] MEDS: DULoxetine 30 MG CAPSULE PO SCH ×2 (08:59→20:40)
[2021-01-29] MEDS: GABAPENTIN 300 MG CAPSULE PO SCH ×2 (08:59→20:40)
[2021-01-29] MEDS: ENOXAPARIN 150 MG/ML SYRINGE SQ SCH (09:47)
--- NOTE | 2021-01-29 09:56 | General Surgery Progress Note ---
SUBJECTIVE Subjective Patient information: Note initiated : 01/29/21 at 9:53 am Service Date, if different from initiated Date: [] Patient: Dayanna Guo 60 y/o F admitted on 01/27/21 for N/V. Chief Complaint: [] Interval history: Patient without further nausea, ileostomy is fully functioning male tolerating NG tube clamped Constitutional Vitals: Vital Signs Temp Pulse Resp BP Pulse Ox 97 F 132 H 16 131/69 96 01/29/21 09:49 01/29/21 09:49 01/29/21 09:49 01/29/21 09:49 01/29/21 09:49 Period Temp Pulse Resp BP Sys/[place] Pulse Ox Last 24 Hr 97 F-98.4 F 108-132 14-20 80-145/54-95 91-100 Intake and Output 01/28/21 01/29/21 01/29/21 21:59 05:59 13:59 Intake Total 3025 1215 Output Total 850 1225 Balance 2175 -10 Weight 227 lb 8 oz Intake & Output: Intake & Output 01/28/21 01/29/21 01/29/21 21:59 05:59 13:59 Intake Total 3025 1215 Output Total 850 1225 Balance 2175 -10 Weight 227 lb 8 oz Intake: IV 585 975 Sodium Chloride 0.9% 1,000 ml @ 975 125 mls/hr IV .Q8H MALENA Rx#: [id number] Potassium Chloride 40 Meq In 520 Dextrose 5% in Water 500 ml @ 130 mls/hr IV UD PRN Rx#: [id number] Oral 2440 240 Output: Void Amount 850 850 Stool 375 Other: Meal Dinner Percent of Meal Consumed 100% Urine Appearance Clear Clear Urine Color Dark Yellow Bright Yellow General appearance: cooperative and no acute distress GI/Abdominal GI/Abdominal exam: Present soft; Absent distended and tenderness A/P Narrative A/P Narrative: Patient is doing much better, no further nausea and has return of bowel function. We will restart all outpatient medications, advance diet as tolerated. Time Spent With Patient Time: Total time spent is greater than 50% in coordination of care (as documented) at patient's floor/unit and/or counseling patient:
[2021-01-29] MEDS: LEVOTHYROXINE 100 MCG TABLET PO SCH (10:24)
[2021-01-29] MEDS: CYCLOBENZAPRINE 10 MG TABLET PO PRN ×2 (11:58→21:03)
--- NOTE | 2021-01-29 12:19 | Internal Med Progress Note ---
SUBJECTIVE Subjective Patient information: Note initiated : 01/29/21 at 12:15 pm Service Date, if different from initiated Date: [] Patient: Dayanna Guo a 60 y/o F admitted on 01/27/21 for N/V. Chief Complaint: [] Interval history: Dayanna is a 60-year-old lady with history of recurrent bowel obstructions who presents to the ER from SNF with abdominal pain/intractable nausea associated vomiting. Surgery was consulted and patient was started on NG decompression and subsequently admitted under surgical service for management of recurrent SBO. Notably patient has had numerous hospitalization due to recurrent small bowel obstruction in the recent months. Hospital service was consulted this morning for the exclusive purpose of electrolyte management which includes low potassium, calcium and magnesium and acute kidney injury. At the time of my visit patient is alert and oriented. She has copious amount of bilious NG output in excess of 3000 cc since admission. She denies abdominal pain. Blood profile 01/28 calcium 5.1, potassium 3.2, magnesium 1.4 likely secondary to gastric losses via NG aspirate. She does carry history of chronic hypocalcemia from short gut syndrome and has been on outpatient oral calcium. She denies fever, bloody ostomy output, cough or shortness of breath. 01/29-patient doing well. No overnight events. NG tube continued. Ostomy output nonbloody. Managed per surgery. Improving electrolytes. Continue potassium/magnesium and calcium replacement as indicated. Restart oral home medications once approved by surgery. No overnight fever chills. Pain in good control. Constitutional Vitals: Vital Signs Temp Pulse Resp BP Pulse Ox 97.5 F 122 H 18 118/69 93 01/29/21 11:58 01/29/21 11:58 01/29/21 11:58 01/29/21 11:58 01/29/21 11:58 Period Temp Pulse Resp BP Sys/Archuleta Pulse Ox Last 24 Hr 97 F-98.4 F 108-132 14-20 80-145/54-75 91-100 Intake and Output 01/28/21 01/29/21 01/29/21 21:59 05:59 13:59 Intake Total 3025 1215 Output Total 850 1225 Balance 2175 -10 Weight 103.192 kg Alert oriented Nonlabored breathing Nontender nondistended abdomen Ostomy output liquid stool No anxiety Intake & Output: Intake & Output 01/28/21 01/29/21 01/29/21 21:59 05:59 13:59 Intake Total 3025 1215 Output Total 850 1225 Balance 2175 -10 Weight 103.192 kg Intake: IV 585 975 Sodium Chloride 0.9% 1,000 ml @ 975 125 mls/hr IV .Q8H MALENA Rx#: [id number] Potassium Chloride 40 Meq In 520 Dextrose 5% in Water 500 ml @ 130 mls/hr IV UD PRN Rx#: [id number] Oral 2440 240 Output: Void Amount 850 850 Stool 375 Other: Meal Dinner Percent of Meal Consumed 100% Urine Appearance Clear Clear Clear Urine Color Dark Yellow Bright Yellow Straw Urine Odor Normal OBJ DATA Labs CBC & Chem 7: 01/29/21 05:35 01/29/21 05:35 Labs: Abnormal Lab Results 01/29/21 01/29/21 01/28/21 05:35 05:35 17:40 WBC 11.1 H RBC 3.58 L Hgb 10.4 L Hct 32.2 L Plt Count Neut % (Auto) Lymph % (Auto) [place] # (Auto) 1.18 H Absolute Neutrophils VBG Lactic Acid Sodium 128 L 124 L Potassium 3.1 L Chloride 93 L 88 L BUN Creatinine Glucose 259 H 184 H Calcium 5.9 L* 5.6 L* Phosphorus 2.0 L 1.5 L Magnesium Alkaline Phosphatase Lactate Dehydrogenase 372 H 337 H Total Protein 5.2 L 4.8 L Albumin 2.7 L 2.5 L Triglycerides 370 H 284 H Lipase 01/28/21 01/28/21 01/27/21 06:55 06:55 05:40 WBC 12.5 H RBC 3.63 L Hgb 10.7 L Hct 32.4 L Plt Count Neut % (Auto) 78.7 H Lymph % (Auto) 12.9 L [place] # (Auto) Absolute Neutrophils 9.81 H VBG Lactic Acid Sodium 128 L Potassium 3.2 L Chloride 89 L BUN 30 H 50 H Creatinine 1.2 H 1.9 H Glucose 112 H 155 H Calcium 5.1 L* 6.2 L Phosphorus 2.1 L Magnesium 1.4 L Alkaline Phosphatase 125 H Lactate Dehydrogenase 331 H 367 H Total Protein 5.0 L Albumin 2.5 L Triglycerides 336 H 582 H Lipase 01/27/21 01/26/2121 05:40 22:15 22:15 WBC 20.9 H RBC Hgb Hct Plt Count Neut % (Auto) Lymph % (Auto) [place] # (Auto) 1.71 H Absolute Neutrophils 15.45 H VBG Lactic Acid 3.5 H Sodium 123 L Potassium Chloride 86 L BUN 47 H Creatinine 2.0 H Glucose 232 H Calcium 6.4 L Phosphorus Magnesium Alkaline Phosphatase 137 H Lactate Dehydrogenase Total Protein Albumin Triglycerides Lipase 86 H 01/26/21 22:15 WBC 22.7 H RBC Hgb Hct Plt Count 457 H Neut % (Auto) Lymph % (Auto) [place] # (Auto) 1.27 H Absolute Neutrophils 17.61 H VBG Lactic Acid Sodium Potassium Chloride BUN Creatinine Glucose Calcium Phosphorus Magnesium Alkaline Phosphatase Lactate Dehydrogenase Total Protein Albumin Triglycerides Lipase Meds: Medications Acetaminophen (Acetaminophen 500 Mg Tablet) 1,000 mg PO Q6HP PRN; Protocol PRN Reason: Fever Al Hydrox/Mg Hydrox/Simethicone (Mag Hydrox/Al Hydrox/Simeth 30 Ml Oral.Susp) 30 ml PO DAILYP PRN PRN Reason: Nausea Apixaban (Apixaban 5 Mg Tablet) 5 mg PO BID [facility] Benzocaine (Benzocaine 1 Sayre Bottle) 1 spray TOPICAL PRN PRN PRN Reason: Sore Throat Last Admin: 01/27/21 03:51 Dose: 1 spray Documented by: Bisacodyl (Bisacodyl 10 Mg Supp.Rect) 10 mg WI QDAY PRN PRN Reason: Constipation Calcitriol (Calcitriol 0.25 Mcg Capsule) 0.25 mcg PO TuThSa@0900 [facility] Calcium Gluconate (Calcium Gluconate 4.65 Meq/10 Ml Vial) 9.3 meq IV UD PRN PRN Reason: CA < 6.5 Last Admin: 01/29/21 08:59 Dose: 9.3 meq Documented by: Cyclobenzaprine HCl (Cyclobenzaprine 10 Mg Tablet) 10 mg PO BIDP PRN PRN Reason: Muscle Pain Last Admin: 01/29/21 11:58 Dose: 10 mg Documented by: Docusate Sodium (Docusate Sodium 100 Mg Capsule) 100 mg PO BID [facility] Last Admin: 01/29/21 08:59 Dose: 100 mg Documented by: Duloxetine HCl (Duloxetine 30 Mg Capsule) 30 mg PO BID [facility] Last Admin: 01/29/21 08:59 Dose: 30 mg Documented by: Enoxaparin Sodium (Enoxaparin 150 Mg/Ml Syringe) 150 mg SQ DAILY [facility] Last Admin: 01/29/21 09:47 Dose: 150 mg Documented by: Gabapentin (Gabapentin 300 Mg Capsule) 300 mg PO BID [facility] Last Admin: 01/29/21 08:59 Dose: 300 mg Documented by: Hydralazine HCl (Hydralazine 20 Mg/Ml Vial) 10 mg IV Q4-6HP PRN PRN Reason: Hypertension Sodium Chloride (Sodium Chloride 0.9%) 1,000 mls @ 125 mls/hr IV .Q8H [facility] Last Admin: 01/29/21 09:00 Dose: Not Given Documented by: Acetaminophen (Ofirmev) 650 mg in 65 mls @ 130 mls/hr IV Q6HP PRN; Protocol PRN Reason: PAIN/FEVER > 101 Last Infusion: 01/28/21 19:35 Dose: Infused Documented by: Potassium Chloride 40 meq/ (Dextrose) 520 mls @ 130 mls/hr IV UD PRN PRN Reason: K+ = or < 3.5 Last Infusion: 01/28/21 16:10 Dose: Infused Documented by: Magnesium Sulfate (Magnesium Sulfate) 2 gm in 50 mls @ 50 mls/hr IV UD PRN PRN Reason: Mag < or = 1.7 Last Infusion: 01/28/21 11:39 Dose: Infused Documented by: Lactulose (Lactulose 20 Gm/30 Ml Oral.[place]) 10 gm PO DAILYP PRN PRN Reason: Constipation Levothyroxine Sodium (Levothyroxine 100 Mcg Tablet) 200 mcg PO QAMAC [facility] Last Admin: 01/29/21 10:24 Dose: 200 mcg Documented by: Magnesium Hydroxide (Magnesium Hydroxide 30 Ml Oral.Susp) 30 ml PO DAILYP PRN PRN Reason: Constipation Magnesium Oxide (Magnesium Oxide 400 Mg Tablet) 400 mg PO BID [facility] Last Admin: 01/29/21 08:59 Dose: 400 mg Documented by: Methylprednisolone Sodium Succinate (Methylprednisolone Sod Succ 40 Mg/Ml Vial) 40 mg IV DAILY [facility] Last Admin: 01/29/21 08:59 Dose: 40 mg Documented by: Morphine Sulfate (Morphine 10 Mg/Ml Vial) 8 mg IV Q4HP PRN; Protocol PRN Reason: Per Pain Protocol Last Admin: 01/29/21 04:32 Dose: 8 mg Documented by: Octreotide Acetate (Octreotide Acetate 100 Mcg/Ml Vial) 100 mcg SQ TID [facility] Ondansetron HCl (Ondansetron 4 Mg/2 Ml Vial) 4 mg IV Q4HP PRN; Protocol PRN Reason: Nausea And Vomiting Last Admin: 01/28/21 08:34 Dose: 4 mg Documented by: Oxymetazoline HCl (Oxymetazoline 1 Sayre Bottle) 2 spray LUZ UD PRN PRN Reason: HYPERBARIC TREATMENTS Last Admin: 01/27/21 00:24 Dose: 2 spray Documented by: Promethazine HCl (Promethazine 25 Mg Tablet) 50 mg PO DAILYP PRN PRN Reason: Nausea And Vomiting Pyridostigmine [place] (Pyridostigmine [place] 10 Mg/2 Ml Ampul) 10 mg IM Q6H [facility] Senna (Sennosides 1 Tablet) 2 tab PO HSP PRN PRN Reason: Constipation Simethicone (Simethicone 80 Mg Tab.Chew) 80 mg PO DAILYP PRN PRN Reason: Nausea Sodium Chloride (0.9 % Sodium Chloride 10 Ml Syringe) 10 ml IV Q8 [facility]ENA Last Admin: 01/29/21 05:46 Dose: Not Given Documented by: Sodium Chloride (0.9 % Sodium Chloride 10 Ml Syringe) 10 ml IV Q12 MALENA Last Admin: 01/29/21 08:59 Dose: Not Given Documented by: Sodium Chloride (0.9 % Sodium Chloride 10 Ml Syringe) 10 ml IV UD PRN PRN Reason: FLUSH Last Admin: 01/28/21 06:55 Dose: 10 ml Documented by: A/P Narrative A/P Narrative: * Recurrent small bowel obstruction managed per surgery. Managed by surgery. NG discontinued. Hospitalist consult * Multiple electrolyte abnormalities including low calcium/potassium and magnesium. Secondary to secondary gastric losses in the setting of bowel obstruction and NG decompression. Clinically improving with aggressive IV electrolyte replacement. * Acute kidney injury secondary to volume depletion. Creatinine downtrending from 2-1.2->0.9 with crystalloids. recommend avoiding nephrotoxins * History of multifocal PE, continue Lovenox 1.5 mg/kg daily * DM type II continue sliding-scale insulin * Anxiety disorder usually on duloxetine. Continue as needed IV anxiolytics * neuropathy p.o. gabapentin on hold * History of hypothyroid oral thyroxine on hold * History of myasthenia gravis p.o. prednisone/pyridostigmine on hold. 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
[2021-01-29] MEDS: HYDROmorphone 0.5 MG/0.5 ML SYRINGE IV PRN ×3 (13:03→20:41)
[2021-01-29] MEDS: OCTREOTIDE ACETATE 100 MCG/ML VIAL SQ SCH ×2 (15:15→20:52)
[2021-01-29] MEDS: PYRIDOSTIGMINE BROMIDE 10 MG/2 ML AMPUL IM SCH ×2 (15:16→20:51)
[2021-01-29] MEDS ORDERED: DEXTROSE 31 GM ORAL.SUSP PO PRN (17:19)
[2021-01-29] MEDS ORDERED: DEXTROSE 50% 50 ML VIAL IV PRN (17:19)
[2021-01-29] MEDS: INSULIN LISPRO 1 UNIT/0.01 ML UNIT SQ SCH ×2 (20:41→22:27)
[2021-01-30] MEDS: HYDROmorphone 0.5 MG/0.5 ML SYRINGE IV PRN ×6 (00:27→20:13)
[2021-01-30] MEDS: 0.9 % SODIUM CHLORIDE 1,000 ML IV SCH ×5 (02:54→23:31)
[2021-01-30] MEDS: PYRIDOSTIGMINE BROMIDE 10 MG/2 ML AMPUL IM SCH ×4 (03:34→21:14)
[2021-01-30] MEDS: ONDANSETRON 4 MG/2 ML VIAL IV PRN ×2 (06:35→20:12)
[2021-01-30] MEDS: LEVOTHYROXINE 100 MCG TABLET PO SCH (07:24)
[2021-01-30] MEDS: INSULIN LISPRO 1 UNIT/0.01 ML UNIT SQ SCH ×4 (07:24→21:13)
[2021-01-30 07:31] LABS: Basophils # (Auto) 0 K/mcL (0.00-0.20); Basophils % (Auto) 0 % (0.0-2.0); Eosinophils # (Auto) 0 K/mcL (0.00-0.70); Eosinophils % (Auto) 0 % (0.0-7.0); Hematocrit 25.4 % (36.0-48.0); Hemoglobin 8.3 g/dL (12.0-15.0); Lymphocytes # (Auto) 0.47 K/mcL (1.50-4.80); Lymphocytes % (Auto) 9.4 % (15.0-49.0); Mean Cell Volume 90.1 fL (80.0-100.0); Mean Corpuscular HGB Conc 32.7 g/dL (31.0-36.0); Mean Platelet Volume 9.5 fL (7.4-10.4); Monocytes # (Auto) 0.44 K/mcL (0.10-0.90); Monocytes % (Auto) 8.8 % (1.0-12.0); Neutrophils % (Auto) 81.8 % (38.0-78.0); Platelet Count 220 K/mcL (140-440); RBC 2.82 M/mcL (4.00-5.20); Red Cell Distribution Width 13.6 % (11.5-14.5)
[2021-01-30 08:08] LABS: ALT/SGPT 17 U/L (<40); AST/SGOT 12 U/L (<32); Albumin 2.4 gm/dL (3.2-5.2); Albumin/Globulin Ratio 1.1 (1.0-2.3); Alkaline Phosphatase 80 U/L (39-117); Bilirubin,Direct < 0.2 mg/dL (0-0.3); Bilirubin,Total < 0.2 mg/dL (0.1-1.0); Blood Urea Nitrogen 9 mg/dL (6-20); Calcium 5.6 mg/dL (8.6-10.4); Carbon Dioxide 26 mmol/L (22-30); Chloride 99 mmol/L (96-108); Globulin 2.1 gm/dL (2.2-3.7); Glomerular Filtration Rate 70; Glucose 261 mg/dL (70-105); Lactate Dehydrogenase 355 U/L (135-225); Phosphorous 2.3 mg/dL (2.5-4.5); Triglycerides 183 mg/dL (<150); Uric Acid 4.1 mg/dL (2.5-8.0)
[2021-01-30] MEDS: CALCIUM GLUCONATE 4.65 MEQ/10 ML VIAL IV PRN (08:28)
[2021-01-30] MEDS: GABAPENTIN 300 MG CAPSULE PO SCH ×2 (08:29→23:36)
[2021-01-30] MEDS: DOCUSATE SODIUM 100 MG CAPSULE PO SCH ×2 (08:29→23:37)
[2021-01-30] MEDS: MAGNESIUM OXIDE 400 MG TABLET PO SCH ×2 (08:29→23:36)
[2021-01-30] MEDS: DULoxetine 30 MG CAPSULE PO SCH ×2 (08:29→23:36)
[2021-01-30] MEDS: CYCLOBENZAPRINE 10 MG TABLET PO PRN (08:29)
[2021-01-30] MEDS: methylPREDNISolone SOD SUCC 40 MG/ML VIAL IV SCH (08:29)
[2021-01-30] MEDS: 0.9 % SODIUM CHLORIDE 10 ML SYRINGE IV SCH ×2 (08:33→21:51)
--- NOTE | 2021-01-30 09:09 | Internal Med Progress Note ---
SUBJECTIVE Subjective Patient information: Note initiated : 01/30/21 at 9:06 am Service Date, if different from initiated Date: [] Patient: Dayanna Guo a 60 y/o F admitted on 01/27/21 for N/V. Chief Complaint: [] Interval history: Dayanna is a 60-year-old lady with history of recurrent bowel obstructions who presents to the ER from SNF with abdominal pain/intractable nausea associated vomiting. Surgery was consulted and patient was started on NG decompression and subsequently admitted under surgical service for management of recurrent SBO. Notably patient has had numerous hospitalization due to recurrent small bowel obstruction in the recent months. Hospital service was consulted this morning for the exclusive purpose of electrolyte management which includes low potassium, calcium and magnesium and acute kidney injury. At the time of my visit patient is alert and oriented. She has copious amount of bilious NG output in excess of 3000 cc since admission. She denies abdominal pain. Blood profile 01/28 calcium 5.1, potassium 3.2, magnesium 1.4 likely secondary to gastric losses via NG aspirate. She does carry history of chronic hypocalcemia from short gut syndrome and has been on outpatient oral calcium. She denies fever, bloody ostomy output, cough or shortness of breath. 01/29-patient doing well. No overnight events. NG tube continued. Ostomy output nonbloody. Managed per surgery. Improving electrolytes. Continue potassium/magnesium and calcium replacement as indicated. Restart oral home medications once approved by surgery. No overnight fever chills. Pain in good control. 01/30-patient doing a lot better. Improving ostomy output. Tolerating diet. Stable white count, hemoglobin 8.3, improving electrolytes with aggressive replacement. Ongoing management per surgery. Resume oral medication or pre-existing medical issues Constitutional Vitals: Vital Signs Temp Pulse Resp BP Pulse Ox 98.3 F 86 20 117/71 96 01/30/21 07:30 01/30/21 07:30 01/30/21 07:30 01/30/21 07:30 01/30/21 07:30 Period Temp Pulse Resp BP Sys/[place] Pulse Ox Last 24 Hr 97 F-98.5 F 84-132 16-20 110-149/60-94 93-97 Intake and Output 01/29/21 01/30/21 01/30/21 21:59 05:59 13:59 Intake Total 2160 2160 Output Total 1550 1974 Balance 610 185 Weight 106.821 kg Alert oriented Nonlabored breathing Reduced ostomy output in last 24 hours Nontender nondistended abdomen Intake & Output: Intake & Output 01/29/21 01/30/21 01/30/21 21:59 05:59 13:59 Intake Total 2160 2160 Output Total 1550 1974 Balance 610 185 Weight 106.821 kg Intake: IV 1000 1000 Sodium Chloride 0.9% 1,000 ml @ 1000 1000 125 mls/hr IV .Q8H [facility] Rx#: [id number] Oral 1160 1160 Output: Urine Catheter Amount 875 Void Amount 1500 1100 Stool 50 Other: Meal Egg salad & pudding cheese stick & popcicle Percent of Meal Consumed 100% 100% Feeding Ability Independent Independent Urine Appearance Clear Clear Clear Urine Color Bright Yellow Bright Yellow Straw Urine Odor Normal OBJ DATA Labs CBC & Chem 7: 01/30/21 07:01 01/30/21 07:01 Labs: Abnormal Lab Results 01/30/21 01/30/21 01/29/21 07:01 07:01 05:35 WBC RBC 2.82 L Hgb 8.3 L Hct 25.4 L Neut % (Auto) 81.8 H Lymph % (Auto) 9.4 L Lymph # (Auto) 0.47 L [place] # (Auto) Absolute Neutrophils Sodium 128 L Potassium 3.1 L Chloride 93 L BUN Creatinine Glucose 261 H 259 H Calcium 5.6 L* 5.9 L* Phosphorus 2.3 L 2.0 L Magnesium 1.5 L Lactate Dehydrogenase 355 H 372 H Total Protein 4.5 L 5.2 L Albumin 2.4 L 2.7 L Globulin 2.1 L Triglycerides 183 H 370 H 01/29/21 01/28/21 01/28/21 05:35 17:40 06:55 WBC 11.1 H RBC 3.58 L Hgb 10.4 L Hct 32.2 L Neut % (Auto) Lymph % (Auto) Lymph # (Auto) [place] # (Auto) 1.18 H Absolute Neutrophils Sodium 124 L Potassium 3.2 L Chloride 88 L BUN 30 H Creatinine 1.2 H Glucose 184 H 112 H Calcium 5.6 L* 5.1 L* Phosphorus 1.5 L Magnesium 1.4 L Lactate Dehydrogenase 337 H 331 H Total Protein 4.8 L 5.0 L Albumin 2.5 L 2.5 L Globulin Triglycerides 284 H 336 H 01/28/21 06:55 WBC 12.5 H RBC 3.63 L Hgb 10.7 L Hct 32.4 L Neut % (Auto) 78.7 H Lymph % (Auto) 12.9 L Lymph # (Auto) [place] # (Auto) Absolute Neutrophils 9.81 H Sodium Potassium Chloride BUN Creatinine Glucose Calcium Phosphorus Magnesium Lactate Dehydrogenase Total Protein Albumin Globulin Triglycerides Meds: Medications Acetaminophen (Acetaminophen 500 Mg Tablet) 1,000 mg PO Q6HP PRN; Protocol PRN Reason: Fever Al Hydrox/Mg Hydrox/Simethicone (Mag Hydrox/Al Hydrox/Simeth 30 Ml Oral.Susp) 30 ml PO DAILYP PRN PRN Reason: Nausea Apixaban (Apixaban 5 Mg Tablet) 5 mg PO BID [facility] Benzocaine (Benzocaine 1 [place] Bottle) 1 spray TOPICAL PRN PRN PRN Reason: Sore Throat Last Admin: 01/27/21 03:51 Dose: 1 spray Documented by: Bisacodyl (Bisacodyl 10 Mg Supp.Rect) 10 mg VT QDAY PRN PRN Reason: Constipation Calcitriol (Calcitriol 0.25 Mcg Capsule) 0.25 mcg PO TuThSa@0900 [facility] Calcium Gluconate (Calcium Gluconate 4.65 Meq/10 Ml Vial) 9.3 meq IV UD PRN PRN Reason: CA < 6.5 Last Admin: 01/30/21 08:28 Dose: 9.3 meq Documented by: Cyclobenzaprine HCl (Cyclobenzaprine 10 Mg Tablet) 10 mg PO BIDP PRN PRN Reason: Muscle Pain Last Admin: 01/30/21 08:29 Dose: 10 mg Documented by: Dextrose (Dextrose 50% 50 Ml Vial) 0 ml IV UD PRN PRN Reason: Hypoglycemia Diagnostic Test (Pha) (Accu-Chek 1 Each Strip) 1 each FS ACHS [facility] Last Admin: 01/30/21 07:24 Dose: 1 each Documented by: Docusate Sodium (Docusate Sodium 100 Mg Capsule) 100 mg PO BID [facility] Last Admin: 01/30/21 08:29 Dose: 100 mg Documented by: Duloxetine HCl (Duloxetine 30 Mg Capsule) 30 mg PO BID [facility] Last Admin: 01/30/21 08:29 Dose: 30 mg Documented by: Enoxaparin Sodium (Enoxaparin 150 Mg/Ml Syringe) 150 mg SQ DAILY [facility] Last Admin: 01/29/21 09:47 Dose: 150 mg Documented by: Gabapentin (Gabapentin 300 Mg Capsule) 300 mg PO BID [facility] Last Admin: 01/30/21 08:29 Dose: 300 mg Documented by: Glucose (Dextrose 31 Gm Oral.Susp) 15 gm PO PRN PRN PRN Reason: Hypoglycemia Hydralazine HCl (Hydralazine 20 Mg/Ml Vial) 10 mg IV Q4-6HP PRN PRN Reason: Hypertension Hydromorphone HCl (Hydromorphone 0.5 Mg/0.5 Ml Syringe) 0.5 mg IV Q3HP PRN; Protocol PRN Reason: Per Pain Protocol Last Admin: 01/30/21 08:33 Dose: 0.5 mg Documented by: Sodium Chloride (Sodium Chloride 0.9%) 1,000 mls @ 125 mls/hr IV .Q8H [facility] Last Admin: 01/30/21 05:56 Dose: 125 mls/hr Documented by: Acetaminophen (Ofirmev) 650 mg in 65 mls @ 130 mls/hr IV Q6HP PRN; Protocol PRN Reason: PAIN/FEVER > 101 Last Infusion: 01/28/21 19:35 Dose: Infused Documented by: Potassium Chloride 40 meq/ (Dextrose) 520 mls @ 130 mls/hr IV UD PRN PRN Reason: K+ = or < 3.5 Last Infusion: 01/28/21 16:10 Dose: Infused Documented by: Magnesium Sulfate (Magnesium Sulfate) 2 gm in 50 mls @ 50 mls/hr IV UD PRN PRN Reason: Mag < or = 1.7 Last Infusion: 01/28/21 11:39 Dose: Infused Documented by: Insulin Human Lispro (Insulin Lispro 1 Unit/0.01 Ml Unit) 0 unit SQ ACHS [facility]; Protocol Last Admin: 01/30/21 07:24 Dose: 3 units Documented by: Lactulose (Lactulose 20 Gm/30 Ml Oral.[place]) 10 gm PO DAILYP PRN PRN Reason: Constipation Levothyroxine Sodium (Levothyroxine 100 Mcg Tablet) 200 mcg PO QAMAC [facility] Last Admin: 01/30/21 07:24 Dose: 200 mcg Documented by: Magnesium Hydroxide (Magnesium Hydroxide 30 Ml Oral.Susp) 30 ml PO DAILYP PRN PRN Reason: Constipation Magnesium Oxide (Magnesium Oxide 400 Mg Tablet) 400 mg PO BID [facility] Last Admin: 01/30/21 08:29 Dose: 400 mg Documented by: Methylprednisolone Sodium Succinate (Methylprednisolone Sod Succ 40 Mg/Ml Vial) 40 mg IV DAILY [facility] Last Admin: 01/30/21 08:29 Dose: 40 mg Documented by: Octreotide Acetate (Octreotide Acetate 100 Mcg/Ml Vial) 100 mcg SQ TID [facility] Last Admin: 01/29/21 20:52 Dose: 100 mcg Documented by: Ondansetron HCl (Ondansetron 4 Mg/2 Ml Vial) 4 mg IV Q4HP PRN; Protocol PRN Reason: Nausea And Vomiting Last Admin: 01/30/21 06:35 Dose: 4 mg Documented by: Oxymetazoline HCl (Oxymetazoline 1 [place] Bottle) 2 spray LUZ UD PRN PRN Reason: HYPERBARIC TREATMENTS Last Admin: 01/27/21 00:24 Dose: 2 spray Documented by: Promethazine HCl (Promethazine 25 Mg Tablet) 50 mg PO DAILYP PRN PRN Reason: Nausea And Vomiting Pyridostigmine [place] (Pyridostigmine [place] 10 Mg/2 Ml Ampul) 10 mg IM Q6H [facility] Last Admin: 01/30/21 08:33 Dose: 10 mg Documented by: Senna (Sennosides 1 Tablet) 2 tab PO HSP PRN PRN Reason: Constipation Simethicone (Simethicone 80 Mg Tab.Chew) 80 mg PO DAILYP PRN PRN Reason: Nausea Sodium Chloride (0.9 % Sodium Chloride 10 Ml Syringe) 10 ml IV Q12 [facility] Last Admin: 01/30/21 08:33 Dose: Not Given Documented by: Sodium Chloride (0.9 % Sodium Chloride 10 Ml Syringe) 10 ml IV UD PRN PRN Reason: FLUSH Last Admin: 01/28/21 06:55 Dose: 10 ml Documented by: A/P Narrative A/P Narrative: * Recurrent small bowel obstruction managed per surgery. Managed by surgery. NG discontinued. Hospitalist consult * Multiple electrolyte abnormalities including low calcium/potassium and magnesium. Secondary to secondary gastric losses in the setting of bowel obstruction and NG decompression. Continue replacement as indicated * Acute kidney injury secondary to volume depletion. Creatinine downtrending from 2-1.2->0.9 with crystalloids. Avoid nephrotoxins * History of multifocal PE, transition to oral anticoagulant * DM type II continue sliding-scale insulin * Anemia of chronic disease-hemoglobin 8.3. No indication for transfusion * Anxiety disorder restart duloxetine * neuropathy restart home dose gabapentin * History of hypothyroid -restart thyroxine * History of myasthenia gravis continue p.o. 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
[2021-01-30] MEDS: OCTREOTIDE ACETATE 100 MCG/ML VIAL SQ SCH ×3 (09:17→21:53)
--- NOTE | 2021-01-30 11:34 | Discharge Plan ---
Discharge Plan Patient/Caregiver Discharge Instructions Activity: increase activity as tolerated Diet: Regular Diet Prescriptions: Continued pyridostigmine bromide 5 mg/mL solution 10 mg IM Q6H Qty: 240 RF: 5 syringe with needle [BD Luer-Archie Syringe] 3 mL 25 gauge x 1" syringe See Rx Instructions .ROUTE .COMPLEX Qty: 100 RF: 4 (DME) filter needles 19 x 1 1/2" 19 x 1 1/2 " needle See Rx Instructions .ROUTE .MEDSUPPLY Qty: 100 RF: 1 promethazine 25 mg tablet 25 mg PO Q6HP PRN (Reason: Nausea) Qty: 60 RF: 3 duloxetine 30 MG capsule 30 mg PO BID RF: 0 insulin glargine 1 UNIT/0.01 ML unit 10 unit SQ BID RF: 0 magnesium oxide 250 MG tablet 400 mg PO BID RF: 0 promethazine 25 MG suppository 25 mg [place] Q6HP PRN (Reason: nausea vomitting) RF: 0 ondansetron 4 MG tablet 4 mg SL Q4HP PRN (Reason: Nausea) RF: 0 metformin 500 MG tablet 500 mg PO BID RF: 0 prednisone 20 MG tablet 20 mg PO QAMCC RF: 0 Accu-Chek 1 EACH strip 1 each FS BID RF: 0 metoprolol succinate 50 mg Capsule,Sprinkle,Er 24hr 50 mg PO DAILY RF: 0 calcitriol 0.25 mcg Capsule 0.25 mcg PO TuThSa@0900 Qty: 30 RF: 3 Eliquis 5 mg Tablet 5 mg PO BID 150 Days Qty: 60 RF: 6 octreotide acetate 100 mcg/mL Solution 100 mcg subcut TID Qty: 25 RF: 4 levothyroxine 100 mcg Tablet 200 mcg PO QAMAC Qty: 30 RF: 3 cyclobenzaprine 10 mg Tablet 10 mg PO BID PRN (Reason: Muscle Pain) RF: 0 gabapentin 300 mg Tablet 300 mg PO BID RF: 0 acetaminophen 500 mg Tablet 1,000 mg PO Q6H PRN (Reason: Fever) RF: 0 magnesium hydroxide [Milk of Magnesia] 400 mg/5 mL Suspension 400 mg PO QDAY PRN (Reason: Constipation) RF: 0 promethazine 50 mg Tablet 50 mg PO DAILY PRN (Reason: Nausea And Vomiting) RF: 0 bisacodyl [Dulcolax (bisacodyl)] 10 mg Suppository 10 mg [place] QDAY PRN (Reason: Constipation) RF: 0 Fleet Enema 19-7 gram/118 mL Enema 118 ml WI DAILYP PRN (Reason: Constipation) RF: 0 alum-mag hydroxide-simeth [Maalox Maximum Strength] 400-400-40 mg/5 mL Suspension 30 ml PO DAILYP PRN (Reason: Nausea) RF: 0 simethicone 80 mg Tablet 80 mg PO QDAY PRN (Reason: Nausea) RF: 0 Follow Up Plan Patient Disposition: Xfer SNF Prognosis: Fair Discharge Orders: Discharge Order (Routine); Ordered 01/30/21 Ordered By: Calvin Sadler
--- NOTE | 2021-01-30 11:35 | General Surgery Progress Note ---
SUBJECTIVE Subjective Patient information: Note initiated : 01/30/21 at 11:34 am Service Date, if different from initiated Date: [] Patient: Dayanna Guo a 60 y/o F admitted on 01/27/21 for N/V. Chief Complaint: [] Interval history: Patient feels much better today, tolerating diet, ostomy functioning without difficulty. Constitutional Vitals: Vital Signs Temp Pulse Resp BP Pulse Ox 98.1 F 73 20 112/65 97 01/30/21 10:00 01/30/21 10:00 01/30/21 10:00 01/30/21 10:00 01/30/21 10:00 Period Temp Pulse Resp BP Sys/[place] Pulse Ox Last 24 Hr 97.5 F-98.5 F 73-122 16-20 110-149/60-94 93-97 Intake and Output 01/29/21 01/30/21 01/30/21 21:59 05:59 13:59 Intake Total 2160 2160 800 Output Total 1550 1975 Balance 610 185 800 Weight 235 lb 8 oz Intake & Output: Intake & Output 01/29/21 01/30/21 01/30/21 21:59 05:59 13:59 Intake Total 2160 2160 800 Output Total 1550 1975 Balance 610 185 800 Weight 235 lb 8 oz Intake: IV 1000 1000 Sodium Chloride 0.9% 1,000 ml @ 1000 1000 125 mls/hr IV .Q8H [facility] Rx#: [id number] Oral 1160 1160 800 Output: Urine Catheter Amount 875 Void Amount 1500 1100 Stool 50 Other: Meal Egg salad & pudding cheese stick & popcicle Percent of Meal Consumed 100% 100% Feeding Ability Independent Independent Urine Appearance Clear Clear Clear Urine Color Bright Yellow Bright Yellow Straw Urine Odor Normal General appearance: cooperative and no acute distress GI/Abdominal GI/Abdominal exam: Present soft; Absent distended and tenderness A/P Narrative A/P Narrative: Resolved partial small bowel obstruction. We will return to her rehab facility to continue with strength training. Time Spent With Patient Time: Total time spent is greater than 50% in coordination of care (as documented) at patient's floor/unit and/or counseling patient:
[2021-01-30] MEDS: ENOXAPARIN 150 MG/ML SYRINGE SQ SCH (13:47)
[2021-01-30] MEDS: INSULIN GLARGINE, HUMAN 1 UNIT/0.01 ML SQ SCH (21:13)
[2021-01-30] MEDS: CALCIUM CARBONATE 1,250 MG/5 ML ORAL.SUSP PO SCH (23:35)
[2021-01-31] MEDS: PYRIDOSTIGMINE BROMIDE 10 MG/2 ML AMPUL IM SCH ×4 (03:32→21:37)
[2021-01-31] MEDS: ONDANSETRON 4 MG/2 ML VIAL IV PRN ×4 (03:58→23:15)
[2021-01-31] MEDS: HYDROmorphone 0.5 MG/0.5 ML SYRINGE IV PRN ×5 (04:08→20:27)
[2021-01-31] MEDS: LEVOTHYROXINE 100 MCG TABLET PO SCH (06:56)
[2021-01-31] MEDS: INSULIN LISPRO 1 UNIT/0.01 ML UNIT SQ SCH ×4 (07:02→21:37)
[2021-01-31] MEDS: 0.9 % SODIUM CHLORIDE 1,000 ML IV SCH ×2 (07:30→18:43)
[2021-01-31] MEDS: DULoxetine 30 MG CAPSULE PO SCH ×2 (09:30→20:28)
[2021-01-31] MEDS: MAGNESIUM OXIDE 400 MG TABLET PO SCH ×2 (09:30→20:28)
[2021-01-31] MEDS: DOCUSATE SODIUM 100 MG CAPSULE PO SCH ×2 (09:32→20:28)
[2021-01-31] MEDS: GABAPENTIN 300 MG CAPSULE PO SCH ×2 (09:32→20:28)
[2021-01-31] MEDS: CALCITRIOL 0.25 MCG CAPSULE PO SCH (09:33)
[2021-01-31] MEDS: 0.9 % SODIUM CHLORIDE 10 ML SYRINGE IV SCH ×2 (10:14→20:29)
[2021-01-31] MEDS: CALCIUM CARBONATE 1,250 MG/5 ML ORAL.SUSP PO SCH ×2 (10:16→21:37)
[2021-01-31] MEDS: methylPREDNISolone SOD SUCC 40 MG/ML VIAL IV SCH (11:06)
[2021-01-31] MEDS: OCTREOTIDE ACETATE 100 MCG/ML VIAL SQ SCH ×3 (11:06→21:37)
[2021-01-31 11:25] LABS: Basophils # (Auto) 0.01 K/mcL (0.00-0.20); Basophils % (Auto) 0.1 % (0.0-2.0); Eosinophils # (Auto) 0.05 K/mcL (0.00-0.70); Eosinophils % (Auto) 0.7 % (0.0-7.0); Hematocrit 30.4 % (36.0-48.0); Hemoglobin 9.6 g/dL (12.0-15.0); Lymphocytes # (Auto) 1.37 K/mcL (1.50-4.80); Lymphocytes % (Auto) 20.1 % (15.0-49.0); Mean Cell Volume 91.3 fL (80.0-100.0); Mean Corpuscular HGB Conc 31.6 g/dL (31.0-36.0); Mean Platelet Volume 9.1 fL (7.4-10.4); Monocytes # (Auto) 0.85 K/mcL (0.10-0.90); Monocytes % (Auto) 12.5 % (1.0-12.0); Neutrophils % (Auto) 66.6 % (38.0-78.0); Platelet Count 255 K/mcL (140-440); RBC 3.33 M/mcL (4.00-5.20); WBC 6.8 K/mcL (4.5-11.0)
[2021-01-31 11:42] LABS: ALT/SGPT 17 U/L (<40); AST/SGOT 14 U/L (<32); Albumin/Globulin Ratio 1.4 (1.0-2.3); Alkaline Phosphatase 86 U/L (39-117); Bilirubin,Total < 0.2 mg/dL (0.1-1.0); Blood Urea Nitrogen 11 mg/dL (6-20); Calcium 6.1 mg/dL (8.6-10.4); Carbon Dioxide 27 mmol/L (22-30); Chloride 102 mmol/L (96-108); Globulin 2.2 gm/dL (2.2-3.7); Glomerular Filtration Rate 70; Glucose 153 mg/dL (70-105)
[2021-01-31] MEDS: CALCIUM GLUCONATE 9.3 MEQ in DEXTROSE 5% IN WATER 100 ML IV PRN (13:36)
--- NOTE | 2021-01-31 14:57 | Internal Med Progress Note ---
SUBJECTIVE Subjective Patient information: Note initiated : 01/31/21 at 2:50 pm Service Date, if different from initiated Date: [] Patient: Dayanna Guo 60 y/o F admitted on 01/27/21 for N/V. Chief Complaint: [Partial small bowel obstruction] Overnight: Multiple episodes of nausea and non blood non bilious vomiting. Constitutional Vitals: Vital Signs Temp Pulse Resp BP Pulse Ox 35.6 C L 73 12 148/86 93 01/31/21 12:00 01/31/21 12:00 01/31/21 12:00 01/31/21 12:00 01/31/21 12:00 Period Temp Pulse Resp BP Sys/[place]uleta Pulse Ox Last 24 Hr 35.6 C-36.9 C 73-101 12-20 112-168/65-93 93-97 Intake and Output 01/31/21 01/31/21 01/31/21 05:59 13:59 21:59 Intake Total 2065 905 6434 Balance 6586 074 5791 Intake & Output: Intake & Output 01/31/21 01/31/21 01/31/21 05:59 13:59 21:59 Intake Total 9782 500 9483 Balance 3565 945 9651 Intake: IV 2392 363 7508 Sodium Chloride 0.9% 1,000 ml @ 4432 716 7363 125 mls/hr IV .Q8H [facility] Rx#: [id number] Calcium Gluconate 9.3 Meq In 120 Dextrose 5% in Water 100 ml @ 120 mls/hr IV UD PRN Rx#: [id number] Oral 200 General appearance: cooperative and no acute distress Head Head exam: Present atraumatic and normocephalic Eye Eye exam: Present EOMI and PERRL ENT ENT exam: Present mucous membranes moist, normal exam and normal external ear exam Neck Neck exam: Present normal inspection; Absent lymphadenopathy, tenderness and thyromegaly Respiratory Respiratory exam: Absent accessory muscle use, respiratory distress and wheezes Cardiovascular Cardiovascular exam: Present normal rate and rhythm; Absent JVD GI/Abdominal GI/Abdominal exam: Present normal bowel sounds and soft; Absent organomegaly and tenderness Additional comments: Ostomy bag in place. Healed ventral surgical scare in mid abdomen Extremities Exam Extremities exam: Present full ROM, normal capillary refill and normal inspection; Absent tenderness Neurological Exam Neurological exam: Present alert, CN II-XII intact and oriented X3; Absent motor sensory deficit Psychiatric Psychiatric exam: Present normal affect and normal mood; Absent anxious and depressed Skin Skin exam: Present dry and intact OBJ DATA Labs CBC & Chem 7: 01/31/21 10:24 01/31/21 10:45 Labs: Abnormal Lab Results 01/31/21 01/31/21 01/30/21 10:45 10:24 07:01 WBC RBC 3.33 L 2.82 L Hgb 9.6 L 8.3 L Hct 30.4 L 25.4 L Neut % (Auto) 81.8 H Lymph % (Auto) 9.4 L [place] % (Auto) 12.5 H Lymph # (Auto) 1.37 L 0.47 L [place] # (Auto) Sodium Potassium Chloride Anion Gap 5.0 L Glucose 153 H Calcium 6.1 L Phosphorus Magnesium Lactate Dehydrogenase Total Protein 5.2 L Albumin 3.0 L Globulin Triglycerides 01/30/21 01/29/21 01/29/21 07:01 05:35 05:35 WBC 11.1 H RBC 3.58 L Hgb 10.4 L Hct 32.2 L Neut % (Auto) Lymph % (Auto) [place] % (Auto) Lymph # (Auto) [place] # (Auto) 1.18 H Sodium 128 L Potassium 3.1 L Chloride 93 L Anion Gap Glucose 261 H 259 H Calcium 5.6 L* 5.9 L* Phosphorus 2.3 L 2.0 L Magnesium 1.5 L Lactate Dehydrogenase 355 H 372 H Total Protein 4.5 L 5.2 L Albumin 2.4 L 2.7 L Globulin 2.1 L Triglycerides 183 H 370 H 01/28/21 17:40 WBC RBC Hgb Hct Neut % (Auto) Lymph % (Auto) [place] % (Auto) Lymph # (Auto) [place] # (Auto) Sodium 124 L Potassium Chloride 88 L Anion Gap Glucose 184 H Calcium 5.6 L* Phosphorus 1.5 L Magnesium Lactate Dehydrogenase 337 H Total Protein 4.8 L Albumin 2.5 L Globulin Triglycerides 284 H Meds: Medications Acetaminophen (Acetaminophen 500 Mg Tablet) 1,000 mg PO Q6HP PRN; Protocol PRN Reason: Fever Al Hydrox/Mg Hydrox/Simethicone (Mag Hydrox/Al Hydrox/Simeth 30 Ml Oral.Susp) 30 ml PO DAILYP PRN PRN Reason: Nausea Apixaban (Apixaban 5 Mg Tablet) 5 mg PO BID [facility] Benzocaine (Benzocaine 1 [place] Bottle) 1 spray TOPICAL PRN PRN PRN Reason: Sore Throat Last Admin: 01/27/21 03:51 Dose: 1 spray Documented by: Bisacodyl (Bisacodyl 10 Mg Supp.Rect) 10 mg MD QDAY PRN PRN Reason: Constipation Calcitriol (Calcitriol 0.25 Mcg Capsule) 0.25 mcg PO TuThSa@0900 [facility] Last Admin: 01/31/21 09:33 Dose: 0.25 mcg Documented by: Calcium Carbonate/Glycine (Calcium Carbonate 1,250 Mg/5 Ml Oral.Susp) 500 mg PO BID [facility] Last Admin: 01/31/21 10:16 Dose: 500 mg Documented by: Cyclobenzaprine HCl (Cyclobenzaprine 10 Mg Tablet) 10 mg PO BIDP PRN PRN Reason: Muscle Pain Last Admin: 01/30/21 08:29 Dose: 10 mg Documented by: Dextrose (Dextrose 50% 50 Ml Vial) 0 ml IV UD PRN PRN Reason: Hypoglycemia Diagnostic Test (Pha) (Accu-Chek 1 Each Strip) 1 each FS ACHS [facility] Last Admin: 01/31/21 11:33 Dose: 1 each Documented by: Docusate Sodium (Docusate Sodium 100 Mg Capsule) 100 mg PO BID [facility] Last Admin: 01/31/21 09:32 Dose: Not Given Documented by: Duloxetine HCl (Duloxetine 30 Mg Capsule) 30 mg PO BID [facility] Last Admin: 01/31/21 09:30 Dose: 30 mg Documented by: Gabapentin (Gabapentin 300 Mg Capsule) 300 mg PO BID [facility] Last Admin: 01/31/21 09:32 Dose: 300 mg Documented by: Glucose (Dextrose 31 Gm Oral.Susp) 15 gm PO PRN PRN PRN Reason: Hypoglycemia Hydralazine HCl (Hydralazine 20 Mg/Ml Vial) 10 mg IV Q4-6HP PRN PRN Reason: Hypertension Hydromorphone HCl (Hydromorphone 0.5 Mg/0.5 Ml Syringe) 0.5 mg IV Q3HP PRN; Protocol PRN Reason: Per Pain Protocol Last Admin: 01/31/21 13:36 Dose: 0.5 mg Documented by: Sodium Chloride (Sodium Chloride 0.9%) 1,000 mls @ 125 mls/hr IV .Q8H [facility] Last Infusion: 01/31/21 14:03 Dose: Infused Documented by: Acetaminophen (Ofirmev) 650 mg in 65 mls @ 130 mls/hr IV Q6HP PRN; Protocol PRN Reason: PAIN/FEVER > 101 Last Infusion: 01/28/21 19:35 Dose: Infused Documented by: Potassium Chloride 40 meq/ (Dextrose) 520 mls @ 130 mls/hr IV UD PRN PRN Reason: K+ = or < 3.5 Last Infusion: 01/28/21 16:10 Dose: Infused Documented by: Magnesium Sulfate (Magnesium Sulfate) 2 gm in 50 mls @ 50 mls/hr IV UD PRN PRN Reason: Mag < or = 1.7 Last Infusion: 01/28/21 11:39 Dose: Infused Documented by: Calcium Gluconate 9.3 meq/ (Dextrose) 120 mls @ 120 mls/hr IV UD PRN PRN Reason: CA < 6.5 Last Infusion: 01/31/21 14:02 Dose: Infused Documented by: Insulin Glargine (Insulin Glargine, Human 1 Unit/0.01 Ml) 10 unit SQ HS [facility] Last Admin: 01/30/21 21:13 Dose: 10 units Documented by: Insulin Human Lispro (Insulin Lispro 1 Unit/0.01 Ml Unit) 0 unit SQ [facility]; Protocol Last Admin: 01/31/21 11:34 Dose: 1 units Documented by: Lactulose (Lactulose 20 Gm/30 Ml Oral.[place]) 10 gm PO DAILYP PRN PRN Reason: Constipation Levothyroxine Sodium (Levothyroxine 100 Mcg Tablet) 200 mcg PO QAMAC [facility] Last Admin: 01/31/21 06:56 Dose: 200 mcg Documented by: Magnesium Hydroxide (Magnesium Hydroxide 30 Ml Oral.Susp) 30 ml PO DAILYP PRN PRN Reason: Constipation Magnesium Oxide (Magnesium Oxide 400 Mg Tablet) 400 mg PO BID [facility] Last Admin: 01/31/21 09:30 Dose: 400 mg Documented by: Methylprednisolone Sodium Succinate (Methylprednisolone Sod Succ 40 Mg/Ml Vial) 40 mg IV DAILY [facility] Last Admin: 01/31/21 11:06 Dose: 40 mg Documented by: Octreotide Acetate (Octreotide Acetate 100 Mcg/Ml Vial) 100 mcg SQ TID [facility] Last Admin: 04/20/21 14:35 Dose: 100 mcg Documented by: Ondansetron HCl (Ondansetron 4 Mg/2 Ml Vial) 4 mg IV Q4HP PRN; Protocol PRN Reason: Nausea And Vomiting Last Admin: 01/31/21 07:31 Dose: 4 mg Documented by: Oxymetazoline HCl (Oxymetazoline 1 [place] Bottle) 2 spray LUZ UD PRN PRN Reason: HYPERBARIC TREATMENTS Last Admin: 01/27/21 00:24 Dose: 2 spray Documented by: Promethazine HCl (Promethazine 25 Mg Tablet) 50 mg PO DAILYP PRN PRN Reason: Nausea And Vomiting Last Admin: 01/30/21 21:37 Dose: 50 mg Documented by: Pyridostigmine [place] (Pyridostigmine [place] 10 Mg/2 Ml Ampul) 10 mg IM Q6H [facility] Last Admin: 01/31/21 14:30 Dose: 10 mg Documented by: Senna (Sennosides 1 Tablet) 2 tab PO HSP PRN PRN Reason: Constipation Simethicone (Simethicone 80 Mg Tab.Chew) 80 mg PO DAILYP PRN PRN Reason: Nausea Sodium Chloride (0.9 % Sodium Chloride 10 Ml Syringe) 10 ml IV Q12 [facility] Last Admin: 01/31/21 10:14 Dose: 10 ml Documented by: Sodium Chloride (0.9 % Sodium Chloride 10 Ml Syringe) 10 ml IV UD PRN PRN Reason: FLUSH Last Admin: 01/28/21 06:55 Dose: 10 ml Documented by: A/P Assessment and plan (1) 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: Status: Acute (2) Hypothyroidism: Status: Chronic Comment: Over Rx, decrease to synthroid 200 ug per day and follow TSH and T4 Qualifiers: Hypothyroidism type: congenital with diffuse goiter Qualified Code(s): E03.0 - Congenital hypothyroidism with diffuse goiter (3) Hypertension: Status: Chronic Qualifiers: Hypertension type: essential hypertension Qualified Code(s): I10 - Essential (primary) hypertension (4) Diabetes mellitus type 2, uncontrolled: Status: Chronic Qualifiers: Coma presence: without coma (5) LA (obstructive sleep apnea): Status: Chronic (6) Nausea & vomiting: Status: Acute Qualifiers: Vomiting Intractability: non-intractable Vomiting type: unspecified Qualified Code(s): R11.2 - Nausea with vomiting, unspecified Narrative A/P Narrative: 1. Partial small bowel obstruction with nausea vomiting: Zofran IV PRN nausea vomiting Phenergan IV PRN nausea vomiting Simethicone PRN bowel excessive gas Rest of the management as per primary team Dr. Sadler 2. T2DM: HgA1c Insulin Lantus 10 unit HS Sliding scale insulin AC HS Accu Chek AC HS Hypoglycemia protocol Diabetic diet 3. Essential HTN: Currently normotensive Continue current home regimen of oral antihypertensive 4. Hypothyroidism: Continue thyroid replacement therapy 5. LA: CPAP at night while sleeping d/c to SNF when nausea vomiting is controlled, hopefully tomorrow Time Spent With Patient Time: Total time spent is greater than 50% in coordination of care (as documented) at patient's floor/unit and/or counseling patient: QUALITY Stroke Symptom Onset Unknown: No VTE Deep Vein Thrombosis/Pulmonary Embolism Present on Admission: No
--- NOTE | 2021-01-31 16:06 | General Surgery Progress Note ---
SUBJECTIVE Subjective Patient information: Note initiated : 01/31/21 at 4:04 pm Service Date, if different from initiated Date: [] Patient: Dayanna Guo a 60 y/o F admitted on 01/27/21 for N/V. Chief Complaint: [] Interval history: Patient with some nausea overnight, however tolerating regular diet today. Constitutional Vitals: Vital Signs Temp Pulse Resp BP Pulse Ox 96.0 F L 73 12 148/86 93 01/31/21 12:00 01/31/21 12:00 01/31/21 12:00 01/31/21 12:00 01/31/21 12:00 Period Temp Pulse Resp BP Sys/Archuleta Pulse Ox Last 24 Hr 96.0 F-98.5 F 73-101 12-20 140-168/86-93 93-97 Intake and Output 01/31/21 01/31/21 01/31/21 05:59 13:59 21:59 Intake Total 1484 753 6234 Balance 8275 695 7498 Intake & Output: Intake & Output 01/31/21 01/31/21 01/31/21 05:59 13:59 21:59 Intake Total 8283 909 3067 Balance 4728 383 9733 Intake: IV 6696 872 4218 Sodium Chloride 0.9% 1,000 ml @ 2167 885 7256 125 mls/hr IV .Q8H [facility] Rx#: [id number] Calcium Gluconate 9.3 Meq In 120 Dextrose 5% in Water 100 ml @ 120 mls/hr IV UD PRN Rx#: [id number] Oral 200 General appearance: cooperative and no acute distress GI/Abdominal GI/Abdominal exam: Present normal bowel sounds and soft; Absent distended and t enderness A/P Narrative A/P Narrative: Resolving partial small bowel obstruction, continue with regular diet anticipate discharge to SNF tomorrow. Time Spent With Patient Time: Total time spent is greater than 50% in coordination of care (as documented) at patient's floor/unit and/or counseling patient:
[2021-01-31] MEDS: SIMETHICONE 80 MG TAB.CHEW PO PRN (18:42)
[2021-01-31] MEDS: CYCLOBENZAPRINE 10 MG TABLET PO PRN (21:37)
[2021-01-31] MEDS: INSULIN GLARGINE, HUMAN 1 UNIT/0.01 ML SQ SCH (21:37)
[2021-01-31] MEDS: hydrALAZINE 20 MG/ML VIAL IV PRN (23:15)
[2021-01-31] MEDS: ACETAMINOPHEN 650 MG/65 ML BAG IV PRN (23:15)
[2021-02-01] MEDS: HYDROmorphone 0.5 MG/0.5 ML SYRINGE IV PRN ×7 (01:36→23:32)
[2021-02-01] MEDS ORDERED: PROMETHAZINE 25 MG/ML VIAL ONE (02:20)
[2021-02-01] MEDS: PROMETHAZINE 25 MG/ML VIAL IV PRN ×2 (02:24→10:47)
[2021-02-01] MEDS: PYRIDOSTIGMINE BROMIDE 10 MG/2 ML AMPUL IM SCH ×4 (02:31→20:14)
[2021-02-01] MEDS: ONDANSETRON 4 MG/2 ML VIAL IV PRN ×4 (03:31→19:56)
[2021-02-01] MEDS: hydrALAZINE 20 MG/ML VIAL IV PRN (03:40)
[2021-02-01] MEDS: 0.9 % SODIUM CHLORIDE 1,000 ML IV SCH ×4 (03:41→21:49)
[2021-02-01] MEDS: LEVOTHYROXINE 100 MCG TABLET PO SCH (07:07)
[2021-02-01 09:22] LABS: Basophils # (Auto) 0.03 K/mcL (0.00-0.20); Basophils % (Auto) 0.2 % (0.0-2.0); Eosinophils # (Auto) 0.02 K/mcL (0.00-0.70); Eosinophils % (Auto) 0.1 % (0.0-7.0); Hematocrit 36.6 % (36.0-48.0); Hemoglobin 11.6 g/dL (12.0-15.0); Lymphocytes # (Auto) 1.23 K/mcL (1.50-4.80); Mean Cell Volume 91.5 fL (80.0-100.0); Mean Corpuscular HGB Conc 31.7 g/dL (31.0-36.0); Mean Platelet Volume 9.9 fL (7.4-10.4); Monocytes # (Auto) 1.59 K/mcL (0.10-0.90); Monocytes % (Auto) 11.6 % (1.0-12.0); Neutrophils % (Auto) 79.1 % (38.0-78.0); Platelet Count 343 K/mcL (140-440); Red Cell Distribution Width 14.2 % (11.5-14.5); WBC 13.7 K/mcL (4.5-11.0)
--- NOTE | 2021-02-01 09:28 | XRay Report ---
HISTORY: Abdominal pain and distention, nasogastric tube insertion FINDINGS: There are multiple dilated loops of small intestine throughout the abdomen measuring up to 8 cm in diameter. Moderate amount of gas is seen in the stomach. There is nasogastric tube in the esophagus with the tip at the gastroesophageal junction. No free intra-abdominal air is present. IMPRESSION: Recurrent small bowel obstruction NG tube in the distal esophagus Nursing was called with the report Interpreted and Authenticated by: Zay Juarez 02/01/21
[2021-02-01 09:31] LABS: ALT/SGPT 22 U/L (<40); AST/SGOT 13 U/L (<32); Albumin 3.1 gm/dL (3.2-5.2); Albumin/Globulin Ratio 1.1 (1.0-2.3); Alkaline Phosphatase 105 U/L (39-117); Bilirubin,Total < 0.2 mg/dL (0.1-1.0); Blood Urea Nitrogen 11 mg/dL (6-20); Calcium 6.5 mg/dL (8.6-10.4); Carbon Dioxide 30 mmol/L (22-30); Chloride 98 mmol/L (96-108); Globulin 2.8 gm/dL (2.2-3.7); Glomerular Filtration Rate 55; Glucose 219 mg/dL (70-105)
--- NOTE | 2021-02-01 09:31 | XRay Report ---
HISTORY: Reposition nasogastric tube FINDINGS: The NG tube has been advanced into the fundus of the stomach. The sidehole of the catheter is in the cardia. Volume of air in the stomach and small intestine is unchanged from the preceding exam. IMPRESSION: Well-positioned nasogastric tube in the stomach. Nursing was called with the report Interpreted and Authenticated by: Zay Juarez 02/01/21
[2021-02-01] MEDS: INSULIN LISPRO 1 UNIT/0.01 ML UNIT SQ SCH ×4 (10:09→20:13)
[2021-02-01] MEDS: CALCIUM CARBONATE 1,250 MG/5 ML ORAL.SUSP PO SCH ×2 (10:10→22:27)
[2021-02-01] MEDS: MAGNESIUM OXIDE 400 MG TABLET PO SCH ×2 (10:11→22:27)
[2021-02-01] MEDS: DOCUSATE SODIUM 100 MG CAPSULE PO SCH ×2 (10:11→22:27)
[2021-02-01] MEDS: GABAPENTIN 300 MG CAPSULE PO SCH ×2 (10:11→22:27)
[2021-02-01] MEDS: DULoxetine 30 MG CAPSULE PO SCH ×2 (10:11→22:27)
[2021-02-01] MEDS: 0.9 % SODIUM CHLORIDE 10 ML SYRINGE IV SCH ×2 (10:12→22:27)
[2021-02-01] MEDS: methylPREDNISolone SOD SUCC 40 MG/ML VIAL IV SCH (10:31)
[2021-02-01] MEDS: OCTREOTIDE ACETATE 100 MCG/ML VIAL SQ SCH ×3 (10:32→20:14)
--- NOTE | 2021-02-01 13:25 | Internal Med Progress Note ---
SUBJECTIVE Subjective Patient information: Note initiated : 02/01/21 at 1:21 pm Service Date, if different from initiated Date: [] Patient: Dayanna Guo 60 y/o F admitted on 01/27/21 for N/V. Chief Complaint: [SBO] Overnight: NG tube was inserted yesterday and low intermittent suction was im plemented. Patient was made NPO. Subjective: Nausea. Mild cramping epigastric abdominal pain. Constitutional Vitals: Vital Signs Temp Pulse Resp BP Pulse Ox 36.2 C 129 H 14 150/76 95 02/01/21 10:39 02/01/21 10:39 02/01/21 10:39 02/01/21 10:39 02/01/21 10:39 Period Temp Pulse Resp BP Sys/Archuleta Pulse Ox Last 24 Hr 36.1 C-36.8 C 75-129 12-14 128-192/76-111 93-96 Intake and Output 01/31/21 02/01/21 02/01/21 21:59 05:59 13:59 Intake Total 2320 1335 1000 Output Total 1200 Balance 1120 1335 1000 Weight 108.635 kg Intake & Output: Intake & Output 01/31/21 02/01/21 02/01/21 21:59 05:59 13:59 Intake Total 2320 1335 1000 Output Total 1200 Balance 1120 1335 1000 Weight 108.635 kg Intake: IV 1120 1065 1000 Sodium Chloride 0.9% 1,000 ml @ 1000 1000 1000 125 mls/hr IV .Q8H [facility] Rx#: [id number] Calcium Gluconate 9.3 Meq In 120 Dextrose 5% in Water 100 ml @ 120 mls/hr IV UD PRN Rx#: [id number] Oral 1200 270 Output: Void Amount 600 Stool 600 Other: Meal Dinner Percent of Meal Consumed 50% Feeding Ability Independent Stool Color Brown Stool Consistency Liquid Watery General appearance: cooperative and no acute distress Head Head exam: Present atraumatic and normocephalic Eye Eye exam: Present EOMI and PERRL ENT ENT exam: Present mucous membranes moist, normal exam and normal external ear exam Neck Neck exam: Present normal inspection; Absent lymphadenopathy, tenderness and thyromegaly Respiratory Respiratory exam: Absent accessory muscle use, respiratory distress and wheezes Cardiovascular Cardiovascular exam: Present normal rate and rhythm; Absent JVD GI/Abdominal GI/Abdominal exam: Present soft; Absent normal bowel sounds, organomegaly and tenderness Additional comments: NG tube in place Ostomy bag in place Extremities Exam Extremities exam: Present full ROM, normal capillary refill and normal inspection; Absent tenderness Neurological Exam Neurological exam: Present alert, CN II-XII intact and oriented X3; Absent motor sensory deficit Psychiatric Psychiatric exam: Present normal affect and normal mood; Absent anxious and depressed Skin Skin exam: Present dry and intact OBJ DATA Labs CBC & Chem 7: 02/01/21 07:10 02/01/21 07:10 Labs: Abnormal Lab Results 02/01/21 02/01/21 01/31/21 07:10 07:10 10:45 WBC 13.7 H RBC Hgb 11.6 L Hct Neut % (Auto) 79.1 H Lymph % (Auto) 9.0 L [place] % (Auto) Lymph # (Auto) 1.23 L [place] # (Auto) 1.59 H Absolute Neutrophils 10.81 H Anion Gap 5.0 L Glucose 219 H 153 H Calcium 6.5 L 6.1 L Phosphorus Magnesium Lactate Dehydrogenase Total Protein 5.2 L Albumin 3.1 L 3.0 L Globulin Triglycerides 01/31/21 01/30/21 01/30/21 10:24 07:01 07:01 WBC RBC 3.33 L 2.82 L Hgb 9.6 L 8.3 L Hct 30.4 L 25.4 L Neut % (Auto) 81.8 H Lymph % (Auto) 9.4 L [place] % (Auto) 12.5 H Lymph # (Auto) 1.37 L 0.47 L [place] # (Auto) Absolute Neutrophils Anion Gap Glucose 261 H Calcium 5.6 L* Phosphorus 2.3 L Magnesium 1.5 L Lactate Dehydrogenase 355 H Total Protein 4.5 L Albumin 2.4 L Globulin 2.1 L Triglycerides 183 H Meds: Medications Acetaminophen (Acetaminophen 500 Mg Tablet) 1,000 mg PO Q6HP PRN; Protocol PRN Reason: Fever Al Hydrox/Mg Hydrox/Simethicone (Mag Hydrox/Al Hydrox/Simeth 30 Ml Oral.Susp) 30 ml PO DAILYP PRN PRN Reason: Nausea Apixaban (Apixaban 5 Mg Tablet) 5 mg PO BID [facility] Benzocaine (Benzocaine 1 [place] Bottle) 1 spray TOPICAL PRN PRN PRN Reason: Sore Throat Last Admin: 01/27/21 03:51 Dose: 1 spray Documented by: Bisacodyl (Bisacodyl 10 Mg Supp.Rect) [address] QDAY PRN PRN Reason: Constipation Calcitriol (Calcitriol 0.25 Mcg Capsule) 0.25 mcg PO TuThSa@0900 [facility] Last Admin: 01/31/21 09:33 Dose: 0.25 mcg Documented by: Calcium Carbonate/Glycine (Calcium Carbonate 1,250 Mg/5 Ml Oral.Susp) 500 mg PO BID [facility] Last Admin: 02/01/21 10:10 Dose: Not Given Documented by: Cyclobenzaprine HCl (Cyclobenzaprine 10 Mg Tablet) 10 mg PO BIDP PRN PRN Reason: Muscle Pain Last Admin: 01/31/21 21:37 Dose: 10 mg Documented by: Dextrose (Dextrose 50% 50 Ml Vial) 0 ml IV UD PRN PRN Reason: Hypoglycemia Diagnostic Test (Pha) (Accu-Chek 1 Each Strip) 1 each FS ACHS [facility] Last Admin: 02/01/21 10:55 Dose: 1 each Documented by: Docusate Sodium (Docusate Sodium 100 Mg Capsule) 100 mg PO BID [facility] Last Admin: 02/01/21 10:11 Dose: Not Given Documented by: Duloxetine HCl (Duloxetine 30 Mg Capsule) 30 mg PO BID [facility] Last Admin: 02/01/21 10:11 Dose: Not Given Documented by: Gabapentin (Gabapentin 300 Mg Capsule) 300 mg PO BID [facility] Last Admin: 02/01/21 10:11 Dose: Not Given Documented by: Glucose (Dextrose 31 Gm Oral.Susp) 15 gm PO PRN PRN PRN Reason: Hypoglycemia Hydralazine HCl (Hydralazine 20 Mg/Ml Vial) 10 mg IV Q4-6HP PRN PRN Reason: Hypertension Last Admin: 02/01/21 03:40 Dose: 10 mg Documented by: Hydromorphone HCl (Hydromorphone 0.5 Mg/0.5 Ml Syringe) 0.5 mg IV Q3HP PRN; Protocol PRN Reason: Per Pain Protocol Last Admin: 02/01/21 10:48 Dose: 0.5 mg Documented by: Sodium Chloride (Sodium Chloride 0.9%) 1,000 mls @ 125 mls/hr IV .Q8H [facility] Last Admin: 02/01/21 10:32 Dose: Not Given Documented by: Acetaminophen (Ofirmev) 650 mg in 65 mls @ 130 mls/hr IV Q6HP PRN; Protocol PRN Reason: PAIN/FEVER > 101 Last Infusion: 02/01/21 00:08 Dose: Infused Documented by: Potassium Chloride 40 meq/ (Dextrose) 520 mls @ 130 mls/hr IV UD PRN PRN Reason: K+ = or < 3.5 Last Infusion: 01/28/21 16:10 Dose: Infused Documented by: Magnesium Sulfate (Magnesium Sulfate) 2 gm in 50 mls @ 50 mls/hr IV UD PRN PRN Reason: Mag < or = 1.7 Last Infusion: 01/28/21 11:39 Dose: Infused Documented by: Calcium Gluconate 9.3 meq/ (Dextrose) 120 mls @ 120 mls/hr IV UD PRN PRN Reason: CA < 6.5 Last Infusion: 01/31/21 14:02 Dose: Infused Documented by: Insulin Human Lispro (Insulin Lispro 1 Unit/0.01 Ml Unit) 0 unit SQ ACHS [facility]; Protocol Last Admin: 02/01/21 10:56 Dose: Not Given Documented by: Lactulose (Lactulose 20 Gm/30 Ml Oral.[place]) 10 gm PO DAILYP PRN PRN Reason: Constipation Levothyroxine Sodium (Levothyroxine 100 Mcg Tablet) 200 mcg PO QAMAC [facility] Last Admin: 02/01/21 07:07 Dose: Not Given Documented by: Magnesium Hydroxide (Magnesium Hydroxide 30 Ml Oral.Susp) 30 ml PO DAILYP PRN PRN Reason: Constipation Last Admin: 01/31/21 21:47 Dose: 30 ml Documented by: Magnesium Oxide (Magnesium Oxide 400 Mg Tablet) 400 mg PO BID [facility] Last Admin: 02/01/21 10:11 Dose: Not Given Documented by: Methylprednisolone Sodium Succinate (Methylprednisolone Sod Succ 40 Mg/Ml Vial) 40 mg IV DAILY [facility] Last Admin: 02/01/21 10:31 Dose: 40 mg Documented by: Octreotide Acetate (Octreotide Acetate 100 Mcg/Ml Vial) 100 mcg SQ TID [facility] Last Admin: 02/01/21 10:32 Dose: 100 mcg Documented by: Ondansetron HCl (Ondansetron 4 Mg/2 Ml Vial) 4 mg IV Q4HP PRN; Protocol PRN Reason: Nausea And Vomiting Last Admin: 02/01/21 07:39 Dose: 4 mg Documented by: Oxymetazoline HCl (Oxymetazoline 1 [place] Bottle) 2 spray LUZ UD PRN PRN Reason: HYPERBARIC TREATMENTS Last Admin: 01/27/21 00:24 Dose: 2 spray Documented by: Promethazine HCl (Promethazine 25 Mg Tablet) 50 mg PO DAILYP PRN PRN Reason: Nausea And Vomiting Last Admin: 01/30/21 21:37 Dose: 50 mg Documented by: Promethazine HCl (Promethazine 25 Mg/Ml Vial) 12.5 mg IV Q6HP PRN PRN Reason: Nausea And Vomiting Last Admin: 02/01/21 10:47 Dose: 12.5 mg Documented by: Pyridostigmine [place] (Pyridostigmine [place] 10 Mg/2 Ml Ampul) 10 mg IM Q6H [facility] Last Admin: 02/01/21 10:31 Dose: 10 mg Documented by: Senna (Sennosides 1 Tablet) 2 tab PO HSP PRN PRN Reason: Constipation Simethicone (Simethicone 80 Mg Tab.Chew) 80 mg PO DAILYP PRN PRN Reason: Nausea Last Admin: 01/31/21 18:42 Dose: 80 mg Documented by: Sodium Chloride (0.9 % Sodium Chloride 10 Ml Syringe) 10 ml IV Q12 [facility] Last Admin: 02/01/21 10:12 Dose: Not Given Documented by: Sodium Chloride (0.9 % Sodium Chloride 10 Ml Syringe) 10 ml IV UD PRN PRN Reason: FLUSH Last Admin: 01/28/21 06:55 Dose: 10 ml Documented by: A/P Assessment and plan (1) 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: Status: Acute (2) Hypothyroidism: Status: Chronic Comment: Over Rx, decrease to synthroid 200 ug per day and follow TSH and T4 Qualifiers: Hypothyroidism type: congenital with diffuse goiter Qualified Code(s): E03.0 - Congenital hypothyroidism with diffuse goiter (3) Hypertension: Status: Chronic Qualifiers: Hypertension type: essential hypertension Qualified Code(s): I10 - Essential (primary) hypertension (4) Diabetes mellitus type 2, uncontrolled: Status: Chronic Qualifiers: Coma presence: without coma (5) [place] (obstructive sleep apnea): Status: Chronic (6) Nausea & vomiting: Status: Acute Qualifiers: Vomiting Intractability: non-intractable Vomiting type: unspecified Qualified Code(s): R11.2 - Nausea with vomiting, unspecified Narrative A/P Narrative: 1. Partial small bowel obstruction with nausea vomiting: Zofran IV PRN nausea vomiting Phenergan IV PRN nausea vomiting Simethicone PRN bowel excessive gas Rest of the management as per primary team Dr. Sadler NG tube with low intermittent suction NPO for the time being while having NS@125cc/hr Multidisciplinary round today: decided that patient is not a surgical candidate. For now will focus on symptoms relief with continued NG tube suction and Zofran/Phenergan. 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 Also talked about trying different food especially with energy dense food. Appreciated dietitian input. 2. T2DM: HgA1c Hold Lantus since patient is currently NPO Sliding scale insulin AC HS Accu Chek AC HS Hypoglycemia protocol NPO 3. Essential HTN: Currently normotensive Continue current home regimen of oral antihypertensive 4. Hypothyroidism: Continue thyroid replacement therapy 5. LA: CPAP at night while sleeping d/c to SNF when nausea vomiting is controlled Time Spent With Patient Time: Total time spent is greater than 50% in coordination of care (as documented) at patient's floor/unit and/or counseling patient: QUALITY Stroke Symptom Onset Unknown: No VTE Deep Vein Thrombosis/Pulmonary Embolism Present on Admission: No
--- NOTE | 2021-02-01 15:31 | General Surgery Progress Note ---
SUBJECTIVE Subjective Patient information: Note initiated : 02/01/21 at 3:29 pm Service Date, if different from initiated Date: [] Patient: Dayanna Guo 60 y/o F admitted on 01/27/21 for N/V. Chief Complaint: [] Interval history: Overnight events noted, increased abdominal distention, nausea Constitutional Vitals: Vital Signs Temp Pulse Resp BP Pulse Ox 96.5 F L 117 H 14 144/90 91 02/01/21 12:00 02/01/21 12:00 02/01/21 12:00 02/01/21 12:00 02/01/21 12:00 Period Temp Pulse Resp BP Sys/Archuleta Pulse Ox Last 24 Hr 96.5 F-98.2 F 75-129 12-14 128-192/76-111 91-96 Intake and Output 02/01/21 02/01/21 02/01/21 05:59 13:59 21:59 Intake Total 1335 1000 Balance 1335 1000 Weight 239 lb 8 oz Patient Weight 02/02/21 05:59 Weight 239 lb 8 oz Intake & Output: Intake & Output 02/01/21 02/01/21 02/01/21 05:59 13:59 21:59 Intake Total 1335 1000 Balance 1335 1000 Weight 239 lb 8 oz Intake: IV 1065 1000 Sodium Chloride 0.9% 1,000 ml @ 1000 1000 125 mls/hr IV .Q8H [facility] Rx#: [id number] Oral 270 General appearance: cooperative and no acute distress GI/Abdominal GI/Abdominal exam: Present soft and distended; Absent tenderness Additional comments: decreased ostomy output A/P Narrative A/P Narrative: chronic sbo, was doing better, now with recurrent symptoms NPO, NGT cont with home medications discussion of possible g-tube, will d/w Dr. Currie discussion of possible TPN Time Spent With Patient Time: Total time spent is greater than 50% in coordination of care (as documented) at patient's floor/unit and/or counseling patient:
[2021-02-02] MEDS: HYDROmorphone 0.5 MG/0.5 ML SYRINGE IV PRN ×7 (02:42→22:41)
[2021-02-02] MEDS: ONDANSETRON 4 MG/2 ML VIAL IV PRN ×3 (02:43→11:24)
[2021-02-02] MEDS: PYRIDOSTIGMINE BROMIDE 10 MG/2 ML AMPUL IM SCH ×4 (02:43→20:19)
[2021-02-02] MEDS: 0.9 % SODIUM CHLORIDE 1,000 ML IV SCH ×4 (03:07→20:16)
[2021-02-02] MEDS: LEVOTHYROXINE 100 MCG TABLET PO SCH (07:15)
[2021-02-02] MEDS: INSULIN LISPRO 1 UNIT/0.01 ML UNIT SQ SCH ×4 (07:16→20:24)
[2021-02-02 07:55] LABS: Basophils # (Auto) 0.01 K/mcL (0.00-0.20); Basophils % (Auto) 0.1 % (0.0-2.0); Eosinophils # (Auto) 0.09 K/mcL (0.00-0.70); Eosinophils % (Auto) 1.2 % (0.0-7.0); Hematocrit 32.3 % (36.0-48.0); Hemoglobin 9.8 g/dL (12.0-15.0); Lymphocytes # (Auto) 1.88 K/mcL (1.50-4.80); Lymphocytes % (Auto) 24.4 % (15.0-49.0); Mean Cell Volume 94.2 fL (80.0-100.0); Mean Corpuscular HGB Conc 30.3 g/dL (31.0-36.0); Mean Platelet Volume 9.7 fL (7.4-10.4); Monocytes # (Auto) 1.05 K/mcL (0.10-0.90); Monocytes % (Auto) 13.6 % (1.0-12.0); Neutrophils % (Auto) 60.7 % (38.0-78.0); Platelet Count 268 K/mcL (140-440); RBC 3.43 M/mcL (4.00-5.20); WBC 7.7 K/mcL (4.5-11.0)
[2021-02-02] MEDS: DULoxetine 30 MG CAPSULE PO SCH ×2 (08:05→20:18)
[2021-02-02] MEDS: CALCIUM CARBONATE 1,250 MG/5 ML ORAL.SUSP PO SCH ×2 (08:05→20:18)
[2021-02-02] MEDS: DOCUSATE SODIUM 100 MG CAPSULE PO SCH ×2 (08:05→20:18)
[2021-02-02] MEDS: MAGNESIUM OXIDE 400 MG TABLET PO SCH ×2 (08:05→20:19)
[2021-02-02] MEDS: 0.9 % SODIUM CHLORIDE 10 ML SYRINGE IV SCH ×2 (08:06→20:19)
[2021-02-02] MEDS: GABAPENTIN 300 MG CAPSULE PO SCH ×2 (08:06→20:19)
[2021-02-02] MEDS: CALCITRIOL 0.25 MCG CAPSULE PO SCH (08:06)
[2021-02-02 08:54] LABS: ALT/SGPT 16 U/L (<40); AST/SGOT 10 U/L (<32); Albumin 2.8 gm/dL (3.2-5.2); Albumin/Globulin Ratio 1.3 (1.0-2.3); Alkaline Phosphatase 82 U/L (39-117); Bilirubin,Total < 0.2 mg/dL (0.1-1.0); Blood Urea Nitrogen 12 mg/dL (6-20); Calcium 5.6 mg/dL (8.6-10.4); Carbon Dioxide 29 mmol/L (22-30); Chloride 106 mmol/L (96-108); Globulin 2.2 gm/dL (2.2-3.7); Glomerular Filtration Rate 55; Glucose 143 mg/dL (70-105)
--- NOTE | 2021-02-02 09:08 | General Surgery Progress Note ---
SUBJECTIVE Subjective Patient information: Note initiated : 02/02/21 at 9:06 am Service Date, if different from initiated Date: [] Patient: Dayanna Guo a 60 y/o F admitted on 01/27/21 for N/V. Chief Complaint: [] Interval history: Patient reports feeling less distended overnight, has had resolution of her nausea with the NG tube placement. She has had a small amount of ostomy output. She has no fevers chills nausea or vomiting. Constitutional Vitals: Vital Signs Temp Pulse Resp BP Pulse Ox 98.5 F 97 H 14 154/92 93 02/02/21 07:37 02/02/21 07:37 02/02/21 07:37 02/02/21 07:37 02/02/21 07:37 Period Temp Pulse Resp BP Sys/Archuleta Pulse Ox Last 24 Hr 96.5 F-98.5 F 97-129 12-14 144-165/76-99 91-96 Intake and Output 02/01/21 02/02/21 02/02/21 21:59 05:59 13:59 Intake Total 1000 1360 90 Output Total 2200 40 Balance -1200 1320 90 Weight 239 lb Intake & Output: Intake & Output 02/01/21 02/02/21 02/02/21 21:59 05:59 13:59 Intake Total 1000 1360 90 Output Total 2200 40 Balance -1200 1320 90 Weight 239 lb Intake: IV 1000 1000 Sodium Chloride 0.9% 1,000 ml @ 1000 1000 125 mls/hr IV .Q8H [facility] Rx#: [id number] Oral 360 90 Tube Feeding 0 0 Output: Gastric Drainage 1350 40 Right Nare 1350 40 Void Amount 800 Stool 50 Other: Urine Appearance Clear Urine Color Bright Yellow Stool Color Brown Green Stool Consistency Liquid Watery Loose General appearance: cooperative and no acute distress GI/Abdominal GI/Abdominal exam: Present soft; Absent distended, firm and guarding Additional comments: Ostomy with small amount of output A/P Narrative A/P Narrative: 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 We will continue n.p.o. with NG tube for now. We will discuss with her again possible TPN to supplement nutrition. Time Spent With Patient Time: Total time spent is greater than 50% in coordination of care (as documented) at patient's floor/unit and/or counseling patient:
[2021-02-02] MEDS: OCTREOTIDE ACETATE 100 MCG/ML VIAL SQ SCH ×3 (09:52→20:20)
[2021-02-02] MEDS: methylPREDNISolone SOD SUCC 40 MG/ML VIAL IV SCH (09:52)
[2021-02-02] MEDS: CALCIUM GLUCONATE 9.3 MEQ in DEXTROSE 5% IN WATER 100 ML IV PRN (10:51)
[2021-02-02] MEDS: POTASSIUM CHLORIDE 40 MEQ in DEXTROSE 5% IN WATER 500 ML IV PRN (12:31)
--- NOTE | 2021-02-02 13:04 | Internal Med Progress Note ---
SUBJECTIVE Subjective Patient information: Note initiated : 02/02/21 at 1:02 pm Service Date, if different from initiated Date: [] Patient: Dayanna Guo 60 y/o F admitted on 01/27/21 for N/V. Chief Complaint: [small bowel obstruction ] Overnight: NG tube still have significant amount of output. Subjective: Mild cramping epigastric pain, constant. c/o nausea. Denies SOB. Denies fever or chills or sweating. Constitutional Vitals: Vital Signs Temp Pulse Resp BP Pulse Ox 36.9 C 80 14 155/75 91 02/02/21 12:00 02/02/21 12:00 02/02/21 12:00 02/02/21 12:00 02/02/21 12:00 Period Temp Pulse Resp BP Sys/Archuleta Pulse Ox Last 24 Hr 36.7 C-36.9 C 80-110 12-14 149-165/75-99 91-96 Intake and Output 02/01/21 02/02/21 02/02/21 21:59 05:59 13:59 Intake Total 1000 1360 330 Output Total 2200 40 450 Balance -1200 1320 -120 Weight 108.409 kg Intake & Output: Intake & Output 02/01/21 02/02/21 02/02/21 21:59 05:59 13:59 Intake Total 1000 1360 330 Output Total 2200 40 450 Balance -1200 1320 -120 Weight 108.409 kg Intake: IV 1000 1000 120 Sodium Chloride 0.9% 1,000 ml @ 1000 1000 125 mls/hr IV .Q8H [facility] Rx#: [id number] Calcium Gluconate 9.3 Meq In 120 Dextrose 5% in Water 100 ml @ 120 mls/hr IV UD PRN Rx#: [id number] Oral 360 210 Tube Feeding 0 0 Output: Gastric Drainage 1350 40 Right Nare 1350 40 Void Amount 800 450 Stool 50 Other: Urine Appearance Clear Clear Urine Color Bright Yellow Dark Yellow Stool Color Brown Green Stool Consistency Liquid Watery Loose General appearance: cooperative and no acute distress Head Head exam: Present atraumatic and normocephalic Eye Eye exam: Present EOMI and PERRL ENT ENT exam: Present mucous membranes moist, normal exam and normal external ear exam Additional comments: NG tube in place. Neck Neck exam: Present normal inspection; Absent lymphadenopathy, tenderness and thyromegaly Respiratory Respiratory exam: Absent accessory muscle use, respiratory distress and wheezes Cardiovascular Cardiovascular exam: Present normal rate and rhythm; Absent JVD GI/Abdominal GI/Abdominal exam: Present normal bowel sounds, soft and tenderness; Absent organomegaly Extremities Exam Extremities exam: Present full ROM, normal capillary refill and normal inspection; Absent tenderness Neurological Exam Neurological exam: Present alert, CN II-XII intact and oriented X3; Absent motor sensory deficit Psychiatric Psychiatric exam: Present normal affect and normal mood; Absent anxious and depressed Skin Skin exam: Present dry and intact OBJ DATA Labs CBC & Chem 7: 02/02/21 05:45 02/02/21 05:45 Labs: Abnormal Lab Results 02/02/21 02/02/21 02/01/21 05:45 05:45 07:10 WBC RBC 3.43 L Hgb 9.8 L Hct 32.3 L MCHC 30.3 L RDW 15.0 H Neut % (Auto) Lymph % (Auto) Forrest % (Auto) 13.6 H Lymph # (Auto) Forrest # (Auto) 1.05 H Absolute Neutrophils Anion Gap Glucose 143 H 219 H Calcium 5.6 L* 6.5 L Total Protein 5.0 L Albumin 2.8 L 3.1 L 02/01/21 01/31/21 01/31/21 07:10 10:45 10:24 WBC 13.7 H RBC 3.33 L Hgb 11.6 L 9.6 L Hct 30.4 L MCHC RDW Neut % (Auto) 79.1 H Lymph % (Auto) 9.0 L Forrest % (Auto) 12.5 H Lymph # (Auto) 1.23 L 1.37 L Forrest # (Auto) 1.59 H Absolute Neutrophils 10.81 H Anion Gap 5.0 L Glucose 153 H Calcium 6.1 L Total Protein 5.2 L Albumin 3.0 L Meds: Medications Acetaminophen (Acetaminophen 500 Mg Tablet) 1,000 mg PO Q6HP PRN; Protocol PRN Reason: Fever Al Hydrox/Mg Hydrox/Simethicone (Mag Hydrox/Al Hydrox/Simeth 30 Ml Oral.Susp) 30 ml PO DAILYP PRN PRN Reason: Nausea Apixaban (Apixaban 5 Mg Tablet) 5 mg PO BID [facility] Benzocaine (Benzocaine 1 [place] Bottle) 1 spray TOPICAL PRN PRN PRN Reason: Sore Throat Last Admin: 01/27/21 03:51 Dose: 1 spray Documented by: Bisacodyl (Bisacodyl 10 Mg Supp.Rect) 10 mg AK QDAY PRN PRN Reason: Constipation Calcitriol (Calcitriol 0.25 Mcg Capsule) 0.25 mcg PO TuThSa@0900 [facility] Last Admin: 02/02/21 08:06 Dose: Not Given Documented by: Calcium Carbonate/Glycine (Calcium Carbonate 1,250 Mg/5 Ml Oral.Susp) 500 mg PO BID [facility] Last Admin: 02/02/21 08:05 Dose: Not Given Documented by: Cyclobenzaprine HCl (Cyclobenzaprine 10 Mg Tablet) 10 mg PO BIDP PRN PRN Reason: Muscle Pain Last Admin: 01/31/21 21:37 Dose: 10 mg Documented by: Dextrose (Dextrose 50% 50 Ml Vial) 0 ml IV UD PRN PRN Reason: Hypoglycemia Diagnostic Test (Pha) (Accu-Chek 1 Each Strip) 1 each FS ACHS [facility] Last Admin: 02/02/21 11:24 Dose: 1 each Documented by: Docusate Sodium (Docusate Sodium 100 Mg Capsule) 100 mg PO BID [facility] Last Admin: 02/02/21 08:05 Dose: Not Given Documented by: Duloxetine HCl (Duloxetine 30 Mg Capsule) 30 mg PO BID [facility] Last Admin: 02/02/21 08:05 Dose: Not Given Documented by: Furosemide (Furosemide 20 Mg/2 Ml Vial) 20 mg IV BIDD [facility] Gabapentin (Gabapentin 300 Mg Capsule) 300 mg PO BID [facility] Last Admin: 02/02/21 08:06 Dose: Not Given Documented by: Glucose (Dextrose 31 Gm Oral.Susp) 15 gm PO PRN PRN PRN Reason: Hypoglycemia Hydralazine HCl (Hydralazine 20 Mg/Ml Vial) 10 mg IV Q4-6HP PRN PRN Reason: Hypertension Last Admin: 02/01/21 03:40 Dose: 10 mg Documented by: Hydromorphone HCl (Hydromorphone 0.5 Mg/0.5 Ml Syringe) 0.5 mg IV Q3HP PRN; Protocol PRN Reason: Per Pain Protocol Last Admin: 02/02/21 10:03 Dose: 0.5 mg Documented by: Sodium Chloride (Sodium Chloride 0.9%) 1,000 mls @ 125 mls/hr IV .Q8H [facility] Last Admin: 02/02/21 06:12 Dose: 125 mls/hr Documented by: Acetaminophen (Ofirmev) 650 mg in 65 mls @ 130 mls/hr IV Q6HP PRN; Protocol PRN Reason: PAIN/FEVER > 101 Last Infusion: 02/01/21 00:08 Dose: Infused Documented by: Potassium Chloride 40 meq/ (Dextrose) 520 mls @ 130 mls/hr IV UD PRN PRN Reason: K+ = or < 3.5 Last Admin: 02/02/21 12:31 Dose: 130 mls/hr Documented by: Magnesium Sulfate (Magnesium Sulfate) 2 gm in 50 mls @ 50 mls/hr IV UD PRN PRN Reason: Mag < or = 1.7 Last Infusion: 01/28/21 11:39 Dose: Infused Documented by: Calcium Gluconate 9.3 meq/ (Dextrose) 120 mls @ 120 mls/hr IV UD PRN PRN Reason: CA < 6.5 Last Infusion: 02/02/21 12:21 Dose: Infused Documented by: Insulin Human Lispro (Insulin Lispro 1 Unit/0.01 Ml Unit) 0 unit SQ ACHS [facility]; Protocol Last Admin: 02/02/21 11:28 Dose: Not Given Documented by: Lactulose (Lactulose 20 Gm/30 Ml Oral.[place]) 10 gm PO DAILYP PRN PRN Reason: Constipation Levothyroxine Sodium (Levothyroxine 100 Mcg Vial) 100 mcg IV QAMAC [facility] Magnesium Hydroxide (Magnesium Hydroxide 30 Ml Oral.Susp) 30 ml PO DAILYP PRN PRN Reason: Constipation Last Admin: 01/31/21 21:47 Dose: 30 ml Documented by: Magnesium Oxide (Magnesium Oxide 400 Mg Tablet) 400 mg PO BID [facility] Last Admin: 02/02/21 08:05 Dose: Not Given Documented by: Methylprednisolone Sodium Succinate (Methylprednisolone Sod Succ 40 Mg/Ml Vial) 40 mg IV DAILY [facility] Last Admin: 02/02/21 09:52 Dose: 40 mg Documented by: Octreotide Acetate (Octreotide Acetate 100 Mcg/Ml Vial) 100 mcg SQ TID [facility] Last Admin: 02/02/21 09:52 Dose: 100 mcg Documented by: Ondansetron HCl (Ondansetron 4 Mg/2 Ml Vial) 4 mg IV Q4HP PRN; Protocol PRN Reason: Nausea And Vomiting Last Admin: 02/02/21 11:24 Dose: 4 mg Documented by: Oxymetazoline HCl (Oxymetazoline 1 [place] Bottle) 2 spray LUZ UD PRN PRN Reason: HYPERBARIC TREATMENTS Last Admin: 01/27/21 00:24 Dose: 2 spray Documented by: Promethazine HCl (Promethazine 25 Mg Tablet) 50 mg PO DAILYP PRN PRN Reason: Nausea And Vomiting Last Admin: 01/30/21 21:37 Dose: 50 mg Documented by: Promethazine HCl (Promethazine 25 Mg/Ml Vial) 12.5 mg IV Q6HP PRN PRN Reason: Nausea And Vomiting Last Admin: 02/01/21 10:47 Dose: 12.5 mg Documented by: Pyridostigmine Mclean (Pyridostigmine Mclean 10 Mg/2 Ml Ampul) 10 mg IM Q6H [facility] Last Admin: 02/02/21 10:50 Dose: 10 mg Documented by: Senna (Sennosides 1 Tablet) 2 tab PO HSP PRN PRN Reason: Constipation Simethicone (Simethicone 80 Mg Tab.Chew) 80 mg PO DAILYP PRN PRN Reason: Nausea Last Admin: 01/31/21 18:42 Dose: 80 mg Documented by: Sodium Chloride (0.9 % Sodium Chloride 10 Ml Syringe) 10 ml IV Q12 [facility] Last Admin: 02/02/21 08:06 Dose: Not Given Documented by: Sodium Chloride (0.9 % Sodium Chloride 10 Ml Syringe) 10 ml IV UD PRN PRN Reason: FLUSH Last Admin: 01/28/21 06:55 Dose: 10 ml Documented by: A/P Assessment and plan (1) 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: Status: Acute (2) Hypothyroidism: Status: Chronic Comment: Over Rx, decrease to synthroid 200 ug per day and follow TSH and T4 Qualifiers: Hypothyroidism type: congenital with diffuse goiter Qualified Code(s): E03.0 - Congenital hypothyroidism with diffuse goiter (3) Hypertension: Status: Chronic Qualifiers: Hypertension type: essential hypertension Qualified Code(s): I10 - Essential (primary) hypertension (4) Diabetes mellitus type 2, uncontrolled: Status: Chronic Qualifiers: Coma presence: without coma (5) LA (obstructive sleep apnea): Status: Chronic (6) Nausea & vomiting: Status: Acute Qualifiers: Vomiting Intractability: non-intractable Vomiting type: unspecified Qualified Code(s): R11.2 - Nausea with vomiting, unspecified Narrative A/P Narrative: 1. Partial small bowel obstruction with nausea vomiting: Zofran IV PRN nausea vomiting Phenergan IV PRN nausea vomiting Simethicone PRN bowel excessive gas Rest of the management as per primary team Dr. Sadler NG tube with low intermittent suction NPO for the time being while having NS@125cc/hr Multidisciplinary round today: decided that patient is not a surgical candidate. For now will focus on symptoms relief with continued NG tube suction and Zofran/Phenergan. Consider TPN and/or G tube placement for detention nutrition and/or gastric pressure relief. Also talked about trying different food dez cially with energy dense food. Appreciated dietitian input. 2. T2DM: HgA1c Hold Lantus since patient is currently NPO Sliding scale insulin AC HS Accu Chek AC HS Hypoglycemia protocol NPO 3. Essential HTN: Currently normotensive Continue current home regimen of oral antihypertensive 4. Hypothyroidism: Continue thyroid replacement therapy 5. LA: CPAP at night while sleeping d/c to SNF when nausea vomiting is controlled Time Spent With Patient Time: Total time spent is greater than 50% in coordination of care (as documented) at patient's floor/unit and/or counseling patient: QUALITY Stroke Symptom Onset Unknown: No VTE Deep Vein Thrombosis/Pulmonary Embolism Present on Admission: No
[2021-02-02] MEDS: FUROSEMIDE 20 MG/2 ML VIAL IV SCH (15:30)
[2021-02-02] MEDS ORDERED: CHLORHEXIDINE GLUCONATE 473 ML BOTTLE TOPICAL SCH (18:15)
[2021-02-02] MEDS: MUPIROCIN OINT 2% 22GM NARES SCH (20:53)
[2021-02-02] MEDS: BENZOCAINE 1 SPRAY BOTTLE TOPICAL PRN (20:55)
[2021-02-03] MEDS: HYDROmorphone 0.5 MG/0.5 ML SYRINGE IV PRN ×7 (02:09→21:02)
[2021-02-03] MEDS: PYRIDOSTIGMINE BROMIDE 10 MG/2 ML AMPUL IM SCH ×4 (03:39→21:41)
[2021-02-03] MEDS: 0.9 % SODIUM CHLORIDE 1,000 ML IV SCH ×4 (03:40→17:49)
[2021-02-03] MEDS: ONDANSETRON 4 MG/2 ML VIAL IV PRN ×2 (03:57→21:32)
[2021-02-03] MEDS: FUROSEMIDE 20 MG/2 ML VIAL IV SCH ×2 (06:56→15:49)
[2021-02-03] MEDS: LEVOTHYROXINE 100 MCG VIAL IV SCH (06:56)
[2021-02-03] MEDS: INSULIN LISPRO 1 UNIT/0.01 ML UNIT SQ SCH ×4 (07:00→21:40)
[2021-02-03 07:04] LABS: Basophils # (Auto) 0.02 K/mcL (0.00-0.20); Basophils % (Auto) 0.3 % (0.0-2.0); Eosinophils % (Auto) 2.7 % (0.0-7.0); Hematocrit 28.2 % (36.0-48.0); Hemoglobin 8.6 g/dL (12.0-15.0); Lymphocytes # (Auto) 2.08 K/mcL (1.50-4.80); Lymphocytes % (Auto) 27.8 % (15.0-49.0); Mean Corpuscular HGB Conc 30.5 g/dL (31.0-36.0); Mean Platelet Volume 9.4 fL (7.4-10.4); Monocytes # (Auto) 0.73 K/mcL (0.10-0.90); Monocytes % (Auto) 9.8 % (1.0-12.0); Neutrophils % (Auto) 59.4 % (38.0-78.0); Platelet Count 246 K/mcL (140-440); Red Cell Distribution Width 14.6 % (11.5-14.5); WBC 7.5 K/mcL (4.5-11.0)
--- NOTE | 2021-02-03 07:40 | General Surgery Progress Note ---
SUBJECTIVE Subjective Patient information: Note initiated : 02/03/21 at 7:38 am Service Date, if different from initiated Date: [] Patient: Dayanna Guo 60 y/o F admitted on 01/27/21 for N/V. Chief Complaint: [] Interval history: Patient mated with chronic small bowel obstruction, had become partially reobstructed 2 days ago, NG tube replaced. Patient feels much better this morning, ostomy functioning, no further nausea vomiting. Constitutional Vitals: Vital Signs Temp Pulse Resp BP Pulse Ox 98.8 F 82 16 139/76 96 02/03/21 07:19 02/03/21 07:19 02/03/21 07:19 02/03/21 07:19 02/03/21 07:19 Period Temp Pulse Resp BP Sys/Archuleta Pulse Ox Last 24 Hr 97.7 F-98.8 F 72-87 14-16 117-169/65-91 91-98 Intake and Output 02/02/21 02/03/21 02/03/21 21:59 05:59 13:59 Intake Total 1870 1165 Output Total 2375 1085 Balance -505 80 Weight 238 lb 8 oz Intake & Output: Intake & Output 02/02/21 02/03/21 02/03/21 21:59 05:59 13:59 Intake Total 1870 1165 Output Total 2375 1085 Balance -505 80 Weight 238 lb 8 oz Intake: IV 1520 925 Sodium Chloride 0.9% 1,000 ml @ 1000 925 125 mls/hr IV .Q8H [facility] Rx#: [id number] Potassium Chloride 40 Meq In 520 Dextrose 5% in Water 500 ml @ 130 mls/hr IV UD PRN Rx#: [id number] Oral 350 240 Tube Feeding 0 0 Output: Gastric Drainage 800 150 Right Nare 800 150 Void Amount 1575 775 Stool 100 Emesis 60 Other: Urine Appearance Clear Clear Urine Color Pale Pale General appearance: cooperative and no acute distress GI/Abdominal GI/Abdominal exam: Present soft; Absent distended and tenderness A/P Narrative A/P Narrative: Resolving partial small bowel obstruction. We will do a trial of NG tube clamping, clear liquid diet. May need to stay on full liquid diet with nutritional supplements if she is able to tolerate liquids and unable to tolerate solid food. Time Spent With Patient Time: Total time spent is greater than 50% in coordination of care (as documented) at patient's floor/unit and/or counseling patient:
[2021-02-03 08:16] LABS: ALT/SGPT 16 U/L (<40); AST/SGOT 20 U/L (<32); Albumin 2.3 gm/dL (3.2-5.2); Albumin/Globulin Ratio 1.3 (1.0-2.3); Alkaline Phosphatase 70 U/L (39-117); Bilirubin,Total < 0.2 mg/dL (0.1-1.0); Blood Urea Nitrogen 10 mg/dL (6-20); Carbon Dioxide 30 mmol/L (22-30); Chloride 102 mmol/L (96-108); Globulin 1.8 gm/dL (2.2-3.7); Glomerular Filtration Rate 81; Glucose 139 mg/dL (70-105)
[2021-02-03] MEDS ORDERED: CALCIUM GLUCONATE 4.65 MEQ/10 ML VIAL ONE (08:33)
[2021-02-03] MEDS: MAGNESIUM OXIDE 400 MG TABLET PO SCH ×2 (08:41→21:21)
[2021-02-03] MEDS: DOCUSATE SODIUM 100 MG CAPSULE PO SCH ×2 (08:41→21:21)
[2021-02-03] MEDS: DULoxetine 30 MG CAPSULE PO SCH ×2 (08:41→21:22)
[2021-02-03] MEDS: CYCLOBENZAPRINE 10 MG TABLET PO PRN ×2 (08:41→21:22)
[2021-02-03] MEDS: methylPREDNISolone SOD SUCC 40 MG/ML VIAL IV SCH (08:42)
[2021-02-03] MEDS: MUPIROCIN OINT 2% 22GM NARES SCH ×2 (08:42→21:41)
[2021-02-03] MEDS: CALCIUM CARBONATE 1,250 MG/5 ML ORAL.SUSP PO SCH ×2 (08:42→21:23)
[2021-02-03] MEDS: GABAPENTIN 300 MG CAPSULE PO SCH ×2 (08:42→21:21)
[2021-02-03] MEDS: 0.9 % SODIUM CHLORIDE 10 ML SYRINGE IV SCH ×2 (08:43→21:26)
[2021-02-03] MEDS: POTASSIUM CHLORIDE 40 MEQ in DEXTROSE 5% IN WATER 500 ML IV PRN (09:48)
[2021-02-03] MEDS: OCTREOTIDE ACETATE 100 MCG/ML VIAL SQ SCH ×3 (10:28→21:24)
--- NOTE | 2021-02-03 13:00 | Internal Med Progress Note ---
SUBJECTIVE Subjective Patient information: Note initiated : 02/03/21 at 12:56 pm Service Date, if different from initiated Date: [] Patient: Dayanna Guo 60 y/o F admitted on 01/27/21 for N/V. Chief Complaint: [small bowel obstruction ] Overnight: NG clamped. Tolerating clear liquid diet Subjective: Tolerating clear liquid diet. Denies nausea or vomiting. Denies any abdominal pain. Constitutional Vitals: Vital Signs Temp Pulse Resp BP Pulse Ox 36.6 C 80 18 116/65 94 02/03/21 11:49 02/03/21 11:49 02/03/21 11:49 02/03/21 11:49 02/03/21 11:49 Period Temp Pulse Resp BP Sys/[place] Pulse Ox Last 24 Hr 36.5 C-37.1 C 72-87 14-18 116-169/65-91 92-98 Intake and Output 02/02/21 02/03/21 02/03/21 21:59 05:59 13:59 Intake Total 1870 1165 600 Output Total 2375 1085 2900 Balance -505 80 -2300 Weight 108.182 kg Intake & Output: Intake & Output 02/02/21 02/03/21 02/03/21 21:59 05:59 13:59 Intake Total 1870 1165 600 Output Total 2375 1085 2900 Balance -505 80 -2300 Weight 108.182 kg Intake: IV 1520 925 Sodium Chloride 0.9% 1,000 ml @ 1000 925 125 mls/hr IV .Q8H MALENA Rx#: [id number] Potassium Chloride 40 Meq In 520 Dextrose 5% in Water 500 ml @ 130 mls/hr IV UD PRN Rx#: [id number] Oral 350 240 600 Tube Feeding 0 0 0 Output: Gastric Drainage 800 150 Right Nare 800 150 Void Amount 2851 553 9621 Stool 100 Emesis 60 Other: Urine Appearance Clear Clear Clear Urine Color Pale Pale Pale Urine Odor Normal General appearance: cooperative and no acute distress Head Head exam: Present atraumatic and normocephalic Eye Eye exam: Present EOMI and PERRL ENT ENT exam: Present mucous membranes moist, normal exam and normal external ear ex am Additional comments: NG tube in place. Neck Neck exam: Present normal inspection; Absent lymphadenopathy, tenderness and thyromegaly Respiratory Respiratory exam: Absent accessory muscle use, respiratory distress and wheezes Cardiovascular Cardiovascular exam: Present normal rate and rhythm; Absent JVD GI/Abdominal GI/Abdominal exam: Present normal bowel sounds and soft; Absent organomegaly and tenderness Additional comments: Ostomy bag in place. Extremities Exam Extremities exam: Present full ROM, normal capillary refill and normal inspection; Absent tenderness Neurological Exam Neurological exam: Present alert, CN II-XII intact and oriented X3; Absent motor sensory deficit Psychiatric Psychiatric exam: Present normal affect and normal mood; Absent anxious and depressed Skin Skin exam: Present dry and intact OBJ DATA Labs CBC & Chem 7: 02/03/21 05:15 02/03/21 05:15 Labs: Abnormal Lab Results 02/03/21 02/03/21 02/02/21 05:15 05:15 05:45 WBC RBC 3.00 L Hgb 8.6 L Hct 28.2 L MCHC 30.5 L RDW 14.6 H Neut % (Auto) Lymph % (Auto) [place] % (Auto) Lymph # (Auto) [place] # (Auto) Absolute Neutrophils Anion Gap 6.0 L Glucose 139 H 143 H Calcium 5.0 L* 5.6 L* Total Protein 4.1 L 5.0 L Albumin 2.3 L 2.8 L Globulin 1.8 L 02/02/21 02/01/21 02/01/21 05:45 07:10 07:10 WBC 13.7 H RBC 3.43 L Hgb 9.8 L 11.6 L Hct 32.3 L MCHC 30.3 L RDW 15.0 H Neut % (Auto) 79.1 H Lymph % (Auto) 9.0 L [place] % (Auto) 13.6 H Lymph # (Auto) 1.23 L [place] # (Auto) 1.05 H 1.59 H Absolute Neutrophils 10.81 H Anion Gap Glucose 219 H Calcium 6.5 L Total Protein Albumin 3.1 L Globulin Meds: Medications Acetaminophen (Acetaminophen 500 Mg Tablet) 1,000 mg PO Q6HP PRN; Protocol PRN Reason: Fever Al Hydrox/Mg Hydrox/Simethicone (Mag Hydrox/Al Hydrox/Simeth 30 Ml Oral.Susp) 30 ml PO DAILYP PRN PRN Reason: Nausea Apixaban (Apixaban 5 Mg Tablet) 5 mg PO BID MALENA Benzocaine (Benzocaine 1 [place] Bottle) 1 spray TOPICAL PRN PRN PRN Reason: Sore Throat Last Admin: 02/02/21 20:55 Dose: 1 spray Documented by: Bisacodyl (Bisacodyl 10 Mg Supp.Rect) 10 mg CO QDAY PRN PRN Reason: Constipation Calcitriol (Calcitriol 0.25 Mcg Capsule) 0.25 mcg PO TuThSa@0900 [facility] Last Admin: 02/02/21 08:06 Dose: Not Given Documented by: Calcium Carbonate/Glycine (Calcium Carbonate 1,250 Mg/5 Ml Oral.Susp) 500 mg PO BID [facility] Last Admin: 02/03/21 08:42 Dose: 500 mg Documented by: Chlorhexidine Gluconate (Chlorhexidine Gluconate 473 Ml Bottle) 60 ml TOPICAL UD [facility] Cyclobenzaprine HCl (Cyclobenzaprine 10 Mg Tablet) 10 mg PO BIDP PRN PRN Reason: Muscle Pain Last Admin: 02/03/21 08:41 Dose: 10 mg Documented by: Dextrose (Dextrose 50% 50 Ml Vial) 0 ml IV UD PRN PRN Reason: Hypoglycemia Diagnostic Test (Pha) (Accu-Chek 1 Each Strip) 1 each FS ACHS [facility] Last Admin: 02/03/21 11:49 Dose: 1 each Documented by: Docusate Sodium (Docusate Sodium 100 Mg Capsule) 100 mg PO BID [facility] Last Admin: 02/03/21 08:41 Dose: 100 mg Documented by: Duloxetine HCl (Duloxetine 30 Mg Capsule) 30 mg PO BID [facility] Last Admin: 02/03/21 08:41 Dose: 30 mg Documented by: Furosemide (Furosemide 20 Mg/2 Ml Vial) 20 mg IV BIDD [facility] Last Admin: 02/03/21 06:56 Dose: 20 mg Documented by: Gabapentin (Gabapentin 300 Mg Capsule) 300 mg PO BID [facility] Last Admin: 02/03/21 08:42 Dose: 300 mg Documented by: Glucose (Dextrose 31 Gm Oral.Susp) 15 gm PO PRN PRN PRN Reason: Hypoglycemia Hydralazine HCl (Hydralazine 20 Mg/Ml Vial) 10 mg IV Q4-6HP PRN PRN Reason: Hypertension Last Admin: 02/01/21 03:40 Dose: 10 mg Documented by: Hydromorphone HCl (Hydromorphone 0.5 Mg/0.5 Ml Syringe) 0.5 mg IV Q3HP PRN; Protocol PRN Reason: Per Pain Protocol Last Admin: 02/03/21 11:49 Dose: 0.5 mg Documented by: Sodium Chloride (Sodium Chloride 0.9%) 1,000 mls @ 125 mls/hr IV .Q8H [facility] Last Admin: 02/03/21 10:36 Dose: Not Given Documented by: Acetaminophen (Ofirmev) 650 mg in 65 mls @ 130 mls/hr IV Q6HP PRN; Protocol PRN Reason: PAIN/FEVER > 101 Last Infusion: 02/01/21 00:08 Dose: Infused Documented by: Potassium Chloride 40 meq/ (Dextrose) 520 mls @ 130 mls/hr IV UD PRN PRN Reason: K+ = or < 3.5 Last Admin: 02/03/21 09:48 Dose: 130 mls/hr Documented by: Magnesium Sulfate (Magnesium Sulfate) 2 gm in 50 mls @ 50 mls/hr IV UD PRN PRN Reason: Mag < or = 1.7 Last Infusion: 01/28/21 11:39 Dose: Infused Documented by: Calcium Gluconate 9.3 meq/ (Dextrose) 120 mls @ 120 mls/hr IV UD PRN PRN Reason: CA < 6.5 Last Infusion: 02/02/21 12:21 Dose: Infused Documented by: Insulin Human Lispro (Insulin Lispro 1 Unit/0.01 Ml Unit) 0 unit SQ [facility]; Protocol Last Admin: 02/03/21 11:46 Dose: 6 units Documented by: Lactulose (Lactulose 20 Gm/30 Ml Oral.[place]) 10 gm PO DAILYP PRN PRN Reason: Constipation Levothyroxine Sodium (Levothyroxine 100 Mcg Vial) 100 mcg IV QAMAC [facility] Last Admin: 02/03/21 06:56 Dose: 100 mcg Documented by: Magnesium Hydroxide (Magnesium Hydroxide 30 Ml Oral.Susp) 30 ml PO DAILYP PRN PRN Reason: Constipation Last Admin: 01/31/21 21:47 Dose: 30 ml Documented by: Magnesium Oxide (Magnesium Oxide 400 Mg Tablet) 400 mg PO BID [facility] Last Admin: 02/03/21 08:41 Dose: 400 mg Documented by: Methylprednisolone Sodium Succinate (Methylprednisolone Sod Succ 40 Mg/Ml Vial) 40 mg IV DAILY [facility] Last Admin: 02/03/21 08:42 Dose: 40 mg Documented by: Mupirocin (Mupirocin Oint 2% 22gm) 1 dose NARES BID [facility] Last Admin: 02/03/21 08:42 Dose: 1 dose Documented by: Octreotide Acetate (Octreotide Acetate 100 Mcg/Ml Vial) 100 mcg SQ TID [facility] Last Admin: 02/03/21 10:28 Dose: 100 mcg Documented by: Ondansetron HCl (Ondansetron 4 Mg/2 Ml Vial) 4 mg IV Q4HP PRN; Protocol PRN Reason: Nausea And Vomiting Last Admin: 02/03/21 03:57 Dose: 4 mg Documented by: Oxymetazoline HCl (Oxymetazoline 1 [place] Bottle) 2 spray LUZ UD PRN PRN Reason: HYPERBARIC TREATMENTS Last Admin: 01/27/21 00:24 Dose: 2 spray Documented by: Promethazine HCl (Promethazine 25 Mg Tablet) 50 mg PO DAILYP PRN PRN Reason: Nausea And Vomiting Last Admin: 01/30/21 21:37 Dose: 50 mg Documented by: Promethazine HCl (Promethazine 25 Mg/Ml Vial) 12.5 mg IV Q6HP PRN PRN Reason: Nausea And Vomiting Last Admin: 02/01/21 10:47 Dose: 12.5 mg Documented by: Pyridostigmine [place] (Pyridostigmine [place] 10 Mg/2 Ml Ampul) 10 mg IM Q6H [facility] Last Admin: 02/03/21 10:27 Dose: 10 mg Documented by: Senna (Sennosides 1 Tablet) 2 tab PO HSP PRN PRN Reason: Constipation Simethicone (Simethicone 80 Mg Tab.Chew) 80 mg PO DAILYP PRN PRN Reason: Nausea Last Admin: 01/31/21 18:42 Dose: 80 mg Documented by: Sodium Chloride (0.9 % Sodium Chloride 10 Ml Syringe) 10 ml IV Q12 [facility] Last Admin: 02/03/21 08:43 Dose: Not Given Documented by: Sodium Chloride (0.9 % Sodium Chloride 10 Ml Syringe) 10 ml IV UD PRN PRN Reason: FLUSH Last Admin: 01/28/21 06:55 Dose: 10 ml Documented by: A/P Assessment and plan (1) 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: Status: Acute (2) Hypothyroidism: Status: Chronic Comment: Over Rx, decrease to synthroid 200 ug per day and follow TSH and T4 Qualifiers: Hypothyroidism type: congenital with diffuse goiter Qualified Code(s): E03.0 - Congenital hypothyroidism with diffuse goiter (3) Hypertension: Status: Chronic Qualifiers: Hypertension type: essential hypertension Qualified Code(s): I10 - Essential (primary) hypertension (4) Diabetes mellitus type 2, uncontrolled: Status: Chronic Qualifiers: Coma presence: without coma (5) LA (obstructive sleep apnea): Status: Chronic (6) Nausea & vomiting: Status: Acute Qualifiers: Vomiting Intractability: non-intractable Vomiting type: unspecified Qualified Code(s): R11.2 - Nausea with vomiting, unspecified Narrative A/P Narrative: 1. Partial small bowel obstruction with nausea vomiting: Zofran IV PRN nausea vomiting Phenergan IV PRN nausea vomiting Simethicone PRN bowel excessive gas Rest of the management as per primary team Dr. Sadler NG tube, clamped Clear liquid diet Multidisciplinary round today: decided that patient is not a surgical candidate. For now will focus on symptoms relief with continued NG tube suction and Zofran/Phenergan. Consider TPN and/or G tube placement for [facility] nutrition and/or gastric pressure relief. Also talked about trying different food especially with energy dense food. Appreciated dietitian input. 2. T2DM: HgA1c Hold Lantus since patient is currently NPO Sliding scale insulin AC HS Accu Chek AC HS Hypoglycemia protocol Clear liquid diet 3. Essential HTN: Currently normotensive Continue current home regimen of oral antihypertensive 4. Hypothyroidism: Continue thyroid replacement therapy 5. LA: CPAP at night while sleeping d/c to SNF when nausea vomiting is controlled and tolerating regular diet Time Spent With Patient Time: Total time spent is greater than 50% in coordination of care (as documented) at patient's floor/unit and/or counseling patient: QUALITY Stroke Symptom Onset Unknown: No VTE Deep Vein Thrombosis/Pulmonary Embolism Present on Admission: No
[2021-02-03] MEDS: CALCIUM GLUCONATE 9.3 MEQ in DEXTROSE 5% IN WATER 100 ML IV PRN (14:28)
[2021-02-03] MEDS: SIMETHICONE 80 MG TAB.CHEW PO PRN (23:14)
[2021-02-04] MEDS: MAGNESIUM OXIDE 400 MG TABLET PO SCH ×3 (00:13→22:15)
[2021-02-04] MEDS: GABAPENTIN 300 MG CAPSULE PO SCH ×3 (00:13→22:15)
[2021-02-04] MEDS: DOCUSATE SODIUM 100 MG CAPSULE PO SCH ×3 (00:13→22:15)
[2021-02-04] MEDS: DULoxetine 30 MG CAPSULE PO SCH ×3 (00:13→22:15)
[2021-02-04] MEDS: HYDROmorphone 0.5 MG/0.5 ML SYRINGE IV PRN ×8 (00:17→22:26)
[2021-02-04] MEDS: 0.9 % SODIUM CHLORIDE 1,000 ML IV SCH ×4 (00:34→16:12)
[2021-02-04] MEDS: PYRIDOSTIGMINE BROMIDE 10 MG/2 ML AMPUL IM SCH ×4 (03:17→22:16)
[2021-02-04] MEDS: INSULIN LISPRO 1 UNIT/0.01 ML UNIT SQ SCH ×4 (07:25→22:15)
[2021-02-04] MEDS: FUROSEMIDE 20 MG/2 ML VIAL IV SCH ×2 (07:40→15:17)
[2021-02-04] MEDS: LEVOTHYROXINE 100 MCG VIAL IV SCH (07:40)
[2021-02-04 08:20] LABS: Basophils # (Auto) 0.01 K/mcL (0.00-0.20); Basophils % (Auto) 0.2 % (0.0-2.0); Eosinophils # (Auto) 0.14 K/mcL (0.00-0.70); Eosinophils % (Auto) 2.9 % (0.0-7.0); Hematocrit 29.8 % (36.0-48.0); Hemoglobin 9.5 g/dL (12.0-15.0); Lymphocytes % (Auto) 35.4 % (15.0-49.0); Mean Corpuscular HGB Conc 31.9 g/dL (31.0-36.0); Mean Platelet Volume 9.8 fL (7.4-10.4); Monocytes # (Auto) 0.59 K/mcL (0.10-0.90); Monocytes % (Auto) 12.3 % (1.0-12.0); Neutrophils % (Auto) 49.2 % (38.0-78.0); Platelet Count 272 K/mcL (140-440); RBC 3.24 M/mcL (4.00-5.20); Red Cell Distribution Width 14.3 % (11.5-14.5); WBC 4.8 K/mcL (4.5-11.0)
[2021-02-04 08:42] LABS: ALT/SGPT 18 U/L (<40); AST/SGOT 15 U/L (<32); Albumin 2.3 gm/dL (3.2-5.2); Alkaline Phosphatase 69 U/L (39-117); Bilirubin,Total < 0.2 mg/dL (0.1-1.0); Blood Urea Nitrogen 5 mg/dL (6-20); Carbon Dioxide 38 mmol/L (22-30); Chloride 95 mmol/L (96-108); Globulin 2.2 gm/dL (2.2-3.7); Glomerular Filtration Rate 81; Glucose 182 mg/dL (70-105)
[2021-02-04] MEDS: ONDANSETRON 4 MG/2 ML VIAL IV PRN ×3 (08:43→19:26)
[2021-02-04] MEDS: OCTREOTIDE ACETATE 100 MCG/ML VIAL SQ SCH ×3 (08:44→22:14)
[2021-02-04] MEDS: MUPIROCIN OINT 2% 22GM NARES SCH ×2 (08:48→21:43)
[2021-02-04] MEDS: CALCIUM GLUCONATE 9.3 MEQ in DEXTROSE 5% IN WATER 100 ML IV PRN (10:02)
[2021-02-04] MEDS: POTASSIUM CHLORIDE 40 MEQ in DEXTROSE 5% IN WATER 500 ML IV PRN (10:02)
--- NOTE | 2021-02-04 10:10 | Discharge Plan ---
Discharge Plan Patient/Caregiver Discharge Instructions Activity: increase activity as tolerated Diet: Full Liquid Activity Restrictions/Additional Instructions: Continue to work on strength training and progression back to independence. Recommend full liquid diet with liquid supplements Prescriptions: Continued pyridostigmine bromide 5 mg/mL solution 10 mg IM Q6H Qty: 240 RF: 5 syringe with needle [BD Luer-Archie Syringe] 3 mL 25 gauge x 1" syringe See Rx Instructions .ROUTE .COMPLEX Qty: 100 RF: 4 (DME) filter needles 19 x 1 1/2" 19 x 1 1/2 " needle See Rx Instructions .ROUTE .MEDSUPPLY Qty: 100 RF: 1 promethazine 25 mg tablet 25 mg PO Q6HP PRN (Reason: Nausea) Qty: 60 RF: 3 duloxetine 30 MG capsule 30 mg PO BID RF: 0 insulin glargine 1 UNIT/0.01 ML unit 10 unit SQ BID RF: 0 magnesium oxide 250 MG tablet 400 mg PO BID RF: 0 promethazine 25 MG suppository 25 mg ND Q6HP PRN (Reason: nausea vomitting) RF: 0 ondansetron 4 MG tablet 4 mg SL Q4HP PRN (Reason: Nausea) RF: 0 metformin 500 MG tablet 500 mg PO BID RF: 0 prednisone 20 MG tablet 20 mg PO QAMCC RF: 0 Accu-Chek 1 EACH strip 1 each FS BID RF: 0 metoprolol succinate 50 mg Capsule,Sprinkle,Er 24hr 50 mg PO DAILY RF: 0 calcitriol 0.25 mcg Capsule 0.25 mcg PO TuThSa@0900 Qty: 30 RF: 3 Eliquis 5 mg Tablet 5 mg PO BID 150 Days Qty: 60 RF: 6 octreotide acetate 100 mcg/mL Solution 100 mcg subcut TID Qty: 25 RF: 4 levothyroxine 100 mcg Tablet 200 mcg PO QAMAC Qty: 30 RF: 3 cyclobenzaprine 10 mg Tablet 10 mg PO BID PRN (Reason: Muscle Pain) RF: 0 gabapentin 300 mg Tablet 300 mg PO BID RF: 0 acetaminophen 500 mg Tablet 1,000 mg PO Q6H PRN (Reason: Fever) RF: 0 magnesium hydroxide [Milk of Magnesia] 400 mg/5 mL Suspension 400 mg PO QDAY PRN (Reason: Constipation) RF: 0 promethazine 50 mg Tablet 50 mg PO DAILY PRN (Reason: Nausea And Vomiting) RF: 0 bisacodyl [Dulcolax (bisacodyl)] 10 mg Suppository 10 mg ND QDAY PRN (Reason: Constipation) RF: 0 Fleet Enema 19-7 gram/118 mL Enema 118 ml ND DAILYP PRN (Reason: Constipation) RF: 0 alum-mag hydroxide-simeth [Maalox Maximum Strength] 400-400-40 mg/5 mL Suspension 30 ml PO DAILYP PRN (Reason: Nausea) RF: 0 simethicone 80 mg Tablet 80 mg PO QDAY PRN (Reason: Nausea) RF: 0 Follow Up Plan Patient Disposition: Xfer SNF Prognosis: Fair Rehab Potential: Fair I certify that the patient requires SNF services: Yes Overall status at discharge: patient is progressing back to baseline Discharge Orders: Discharge Order (Routine); Ordered 01/30/21 Ordered By: Calvin Sadler
--- NOTE | 2021-02-04 10:23 | Internal Med Progress Note ---
SUBJECTIVE Subjective Patient information: Note initiated : 02/04/21 at 10:21 am Service Date, if different from initiated Date: [] Patient: Dayanna Guo 60 y/o F admitted on 01/27/21 for N/V. Chief Complaint: [Partial small bowel obstruction] Overnight: NG tube clamped, tolerating diet Subjective: Denies nausea vomiting abdominal pain. Tolerating diet. Constitutional Vitals: Vital Signs Temp Pulse Resp BP Pulse Ox 36.6 C 83 16 124/75 93 02/04/21 07:55 02/04/21 07:55 02/04/21 07:55 02/04/21 07:55 02/04/21 07:55 Period Temp Pulse Resp BP Sys/[place] Pulse Ox Last 24 Hr 36.4 C-37.2 C 71-90 12-18 116-157/65-86 93-98 Intake and Output 02/03/21 02/04/21 02/04/21 21:59 05:59 13:59 Intake Total 1040 1478 1000 Output Total 2900 2875 750 Balance -1860 -1397 250 Weight 107.955 kg Intake & Output: Intake & Output 02/03/21 02/04/21 02/04/21 21:59 05:59 13:59 Intake Total 1040 1478 1000 Output Total 2900 2875 750 Balance -1860 -1397 250 Weight 107.955 kg Intake: IV 613 788 3049 Sodium Chloride 0.9% 1,000 ml @ 998 1000 125 mls/hr IV .Q8H [facility] Rx#: [id number] Calcium Gluconate 9.3 Meq In 120 Dextrose 5% in Water 100 ml @ 120 mls/hr IV UD PRN Rx#: [id number] Potassium Chloride 40 Meq In 520 Dextrose 5% in Water 500 ml @ 130 mls/hr IV UD PRN Rx#: [id number] Oral 400 480 Output: Void Amount 2650 2125 750 Stool 250 750 Other: Meal Lunch Breakfast Percent of Meal Consumed 100% 75% Feeding Ability Independent Independent Urine Appearance Clear Clear Clear Urine Color Pale Bright Yellow Pale Urine Odor Normal Stool Size Large Stool Color Brown Brown Stool Consistency Liquid Watery Loose General appearance: cooperative and no acute distress Head Head exam: Present atraumatic and normocephalic Eye Eye exam: Present EOMI and PERRL ENT ENT exam: Present mucous membranes moist, normal exam and normal external ear exam Neck Neck exam: Present normal inspection; Absent lymphadenopathy, tenderness and thyromegaly Respiratory Respiratory exam: Absent accessory muscle use, respiratory distress and wheezes Cardiovascular Cardiovascular exam: Present normal rate and rhythm; Absent JVD GI/Abdominal GI/Abdominal exam: Present normal bowel sounds and soft; Absent organomegaly and tenderness Additional comments: Ostomy bag in place. Extremities Exam Extremities exam: Present full ROM, normal capillary refill and normal inspection; Absent tenderness Neurological Exam Neurological exam: Present alert, CN II-XII intact and oriented X3; Absent motor sensory deficit Psychiatric Psychiatric exam: Present normal affect and normal mood; Absent anxious and depressed Skin Skin exam: Present dry and intact OBJ DATA Labs CBC & Chem 7: 02/04/21 05:45 02/04/21 05:45 Labs: Abnormal Lab Results 02/04/21 02/04/21 02/03/21 05:45 05:45 12:06 RBC 3.24 L Hgb 9.5 L Hct 29.8 L MCHC RDW [place] % (Auto) 12.3 H [place] # (Auto) Potassium 3.0 L Chloride 95 L Carbon Dioxide 38 H Anion Gap 5.0 L BUN 5 L Glucose 182 H Calcium 6.0 L 5.9 L* Total Protein 4.5 L Albumin 2.3 L Globulin 02/03/21 02/03/21 02/02/21 05:15 05:15 05:45 RBC 3.00 L Hgb 8.6 L Hct 28.2 L MCHC 30.5 L RDW 14.6 H [place] % (Auto) [place] # (Auto) Potassium Chloride Carbon Dioxide Anion Gap 6.0 L BUN Glucose 139 H 143 H Calcium 5.0 L* 5.6 L* Total Protein 4.1 L 5.0 L Albumin 2.3 L 2.8 L Globulin 1.8 L 02/02/21 05:45 RBC 3.43 L Hgb 9.8 L Hct 32.3 L MCHC 30.3 L RDW 15.0 H [place] % (Auto) 13.6 H [place] # (Auto) 1.05 H Potassium Chloride Carbon Dioxide Anion Gap BUN Glucose Calcium Total Protein Albumin Globulin Meds: Medications Acetaminophen (Acetaminophen 500 Mg Tablet) 1,000 mg PO Q6HP PRN; Protocol PRN Reason: Fever Al Hydrox/Mg Hydrox/Simethicone (Mag Hydrox/Al Hydrox/Simeth 30 Ml Oral.Susp) 30 ml PO DAILYP PRN PRN Reason: Nausea Apixaban (Apixaban 5 Mg Tablet) 5 mg PO BID [facility] Benzocaine (Benzocaine 1 [place] Bottle) 1 spray TOPICAL PRN PRN PRN Reason: Sore Throat Last Admin: 02/02/21 20:55 Dose: 1 spray Documented by: Bisacodyl (Bisacodyl 10 Mg Supp.Rect) 10 mg HI QDAY PRN PRN Reason: Constipation Calcitriol (Calcitriol 0.25 Mcg Capsule) 0.25 mcg PO TuThSa@0900 [facility] Last Admin: 02/02/21 08:06 Dose: Not Given Documented by: Calcium Carbonate/Glycine (Calcium Carbonate 1,250 Mg/5 Ml Oral.Susp) 500 mg PO BID [facility] Last Admin: 02/03/21 21:23 Dose: 500 mg Documented by: Chlorhexidine Gluconate (Chlorhexidine Gluconate 473 Ml Bottle) 60 ml TOPICAL UD [facility] Cyclobenzaprine HCl (Cyclobenzaprine 10 Mg Tablet) 10 mg PO BIDP PRN PRN Reason: Muscle Pain Last Admin: 02/03/21 08:41 Dose: 10 mg Documented by: Dextrose (Dextrose 50% 50 Ml Vial) 0 ml IV UD PRN PRN Reason: Hypoglycemia Diagnostic Test (Pha) (Accu-Chek 1 Each Strip) 1 each FS ACHS [facility] Last Admin: 02/04/21 07:04 Dose: 1 each Documented by: Docusate Sodium (Docusate Sodium 100 Mg Capsule) 100 mg PO BID [facility] Last Admin: 02/04/21 00:13 Dose: Not Given Documented by: Duloxetine HCl (Duloxetine 30 Mg Capsule) 30 mg PO BID [facility] Last Admin: 02/04/21 00:13 Dose: Not Given Documented by: Furosemide (Furosemide 20 Mg/2 Ml Vial) 20 mg IV BIDD [facility] Last Admin: 02/04/21 07:40 Dose: 20 mg Documented by: Gabapentin (Gabapentin 300 Mg Capsule) 300 mg PO BID [facility] Last Admin: 02/04/21 00:13 Dose: Not Given Documented by: Glucose (Dextrose 31 Gm Oral.Susp) 15 gm PO PRN PRN PRN Reason: Hypoglycemia Hydralazine HCl (Hydralazine 20 Mg/Ml Vial) 10 mg IV Q4-6HP PRN PRN Reason: Hypertension Last Admin: 02/01/21 03:40 Dose: 10 mg Documented by: Hydromorphone HCl (Hydromorphone 0.5 Mg/0.5 Ml Syringe) 0.5 mg IV Q3HP PRN; Protocol PRN Reason: Per Pain Protocol Last Admin: 02/04/21 10:03 Dose: 0.5 mg Documented by: Sodium Chloride (Sodium Chloride 0.9%) 1,000 mls @ 125 mls/hr IV .Q8H [facility] Last Admin: 02/04/21 10:02 Dose: 125 mls/hr Documented by: Acetaminophen (Ofirmev) 650 mg in 65 mls @ 130 mls/hr IV Q6HP PRN; Protocol PRN Reason: PAIN/FEVER > 101 Last Infusion: 02/01/21 00:08 Dose: Infused Documented by: Potassium Chloride 40 meq/ (Dextrose) 520 mls @ 130 mls/hr IV UD PRN PRN Reason: K+ = or < 3.5 Last Admin: 02/04/21 10:02 Dose: 130 mls/hr Documented by: Magnesium Sulfate (Magnesium Sulfate) 2 gm in 50 mls @ 50 mls/hr IV UD PRN PRN Reason: Mag < or = 1.7 Last Infusion: 01/28/21 11:39 Dose: Infused Documented by: Calcium Gluconate 9.3 meq/ (Dextrose) 120 mls @ 120 mls/hr IV UD PRN PRN Reason: CA < 6.5 Last Admin: 02/04/21 10:02 Dose: 100 mls/hr Documented by: Insulin Human Lispro (Insulin Lispro 1 Unit/0.01 Ml Unit) 0 unit SQ ACHS [facility]; Protocol Last Admin: 02/04/21 07:25 Dose: Not Given Documented by: Lactulose (Lactulose 20 Gm/30 Ml Oral.[place]) 10 gm PO DAILYP PRN PRN Reason: Constipation Levothyroxine Sodium (Levothyroxine 100 Mcg Vial) 100 mcg IV QAMAC [facility] Last Admin: 02/04/21 07:40 Dose: 100 mcg Documented by: Magnesium Hydroxide (Magnesium Hydroxide 30 Ml Oral.Susp) 30 ml PO DAILYP PRN PRN Reason: Constipation Last Admin: 01/31/21 21:47 Dose: 30 ml Documented by: Magnesium Oxide (Magnesium Oxide 400 Mg Tablet) 400 mg PO BID [facility] Last Admin: 02/04/21 00:13 Dose: Not Given Documented by: Methylprednisolone Sodium Succinate (Methylprednisolone Sod Succ 40 Mg/Ml Vial) 40 mg IV DAILY [facility] Last Admin: 02/03/21 08:42 Dose: 40 mg Documented by: Mupirocin (Mupirocin Oint 2% 22gm) 1 dose NARES BID [facility] Last Admin: 02/04/21 08:48 Dose: 1 dose Documented by: Octreotide Acetate (Octreotide Acetate 100 Mcg/Ml Vial) 100 mcg SQ TID [facility] Last Admin: 02/04/21 08:44 Dose: 100 mcg Documented by: Ondansetron HCl (Ondansetron 4 Mg/2 Ml Vial) 4 mg IV Q4HP PRN; Protocol PRN Reason: Nausea And Vomiting Last Admin: 02/04/21 08:43 Dose: 4 mg Documented by: Oxymetazoline HCl (Oxymetazoline 1 [place] Bottle) 2 spray LUZ UD PRN PRN Reason: HYPERBARIC TREATMENTS Last Admin: 01/27/21 00:24 Dose: 2 spray Documented by: Promethazine HCl (Promethazine 25 Mg Tablet) 50 mg PO DAILYP PRN PRN Reason: Nausea And Vomiting Last Admin: 01/30/21 21:37 Dose: 50 mg Documented by: Promethazine HCl (Promethazine 25 Mg/Ml Vial) 12.5 mg IV Q6HP PRN PRN Reason: Nausea And Vomiting Last Admin: 02/01/21 10:47 Dose: 12.5 mg Documented by: Pyridostigmine [place] (Pyridostigmine [place] 10 Mg/2 Ml Ampul) 10 mg IM Q6H [facility] Last Admin: 02/04/21 08:44 Dose: 10 mg Documented by: Senna (Sennosides 1 Tablet) 2 tab PO HSP PRN PRN Reason: Constipation Simethicone (Simethicone 80 Mg Tab.Chew) 80 mg PO DAILYP PRN PRN Reason: Nausea Last Admin: 02/03/21 23:14 Dose: 80 mg Documented by: Sodium Chloride (0.9 % Sodium Chloride 10 Ml Syringe) 10 ml IV Q12 [facility] Last Admin: 02/03/21 21:26 Dose: Not Given Documented by: Sodium Chloride (0.9 % Sodium Chloride 10 Ml Syringe) 10 ml IV UD PRN PRN Reason: FLUSH Last Admin: 01/28/21 06:55 Dose: 10 ml Documented by: A/P Assessment and plan (1) 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: Status: Acute (2) Hypothyroidism: Status: Chronic Comment: Over Rx, decrease to synthroid 200 ug per day and follow TSH and T4 Qualifiers: Hypothyroidism type: congenital with diffuse goiter Qualified Code(s): E03.0 - Congenital hypothyroidism with diffuse goiter (3) Hypertension: Status: Chronic Qualifiers: Hypertension type: essential hypertension Qualified Code(s): I10 - Essential (primary) hypertension (4) Diabetes mellitus type 2, uncontrolled: Status: Chronic Qualifiers: Coma presence: without coma (5) LA (obstructive sleep apnea): Status: Chronic (6) Nausea & vomiting: Status: Acute Qualifiers: Vomiting Intractability: non-intractable Vomiting type: unspecified Qualified Code(s): R11.2 - Nausea with vomiting, unspecified Narrative A/P Narrative: 1. Partial small bowel obstruction with nausea vomiting: Resolved. NG tube removed, tolerating diet. Ready to be discharged back to SNF Zofran IV PRN nausea vomiting Phenergan IV PRN nausea vomiting Simethicone PRN bowel excessive gas Rest of the management as per primary team Dr. Sadler 2. T2DM: HgA1c Hold Lantus since patient is currently NPO Sliding scale insulin AC HS Accu Chek AC HS Hypoglycemia protocol Clear liquid diet 3. Essential HTN: Currently normotensive Continue current home regimen of oral antihypertensive 4. Hypothyroidism: Continue thyroid replacement therapy 5. LA: CPAP at night while sleeping d/c to SNF when nausea vomiting is controlled and tolerating regular diet Time Spent With Patient Time: Total time spent is greater than 50% in coordination of care (as document ed) at patient's floor/unit and/or counseling patient: QUALITY Stroke Symptom Onset Unknown: No VTE Deep Vein Thrombosis/Pulmonary Embolism Present on Admission: No
[2021-02-04] MEDS: 0.9 % SODIUM CHLORIDE 10 ML SYRINGE IV SCH ×2 (11:04→22:16)
[2021-02-04] MEDS: CALCITRIOL 0.25 MCG CAPSULE PO SCH (11:16)
[2021-02-04] MEDS: methylPREDNISolone SOD SUCC 40 MG/ML VIAL IV SCH (11:17)
[2021-02-04] MEDS: CALCIUM CARBONATE 1,250 MG/5 ML ORAL.SUSP PO SCH ×2 (11:17→22:15)
[2021-02-04] MEDS: SIMETHICONE 80 MG TAB.CHEW PO PRN (15:16)
[2021-02-05] MEDS: 0.9 % SODIUM CHLORIDE 1,000 ML IV SCH ×3 (00:51→15:28)
[2021-02-05] MEDS: HYDROmorphone 0.5 MG/0.5 ML SYRINGE IV PRN ×6 (01:48→21:39)
[2021-02-05] MEDS: ONDANSETRON 4 MG/2 ML VIAL IV PRN ×4 (01:48→22:08)
[2021-02-05] MEDS: PYRIDOSTIGMINE BROMIDE 10 MG/2 ML AMPUL IM SCH ×4 (03:52→22:00)
[2021-02-05] MEDS: INSULIN LISPRO 1 UNIT/0.01 ML UNIT SQ SCH ×4 (07:08→21:59)
[2021-02-05] MEDS: OCTREOTIDE ACETATE 100 MCG/ML VIAL SQ SCH ×3 (09:26→21:59)
[2021-02-05] MEDS: GABAPENTIN 300 MG CAPSULE PO SCH ×2 (09:27→21:42)
[2021-02-05] MEDS: DULoxetine 30 MG CAPSULE PO SCH ×2 (09:27→21:58)
[2021-02-05] MEDS: CALCIUM CARBONATE 1,250 MG/5 ML ORAL.SUSP PO SCH ×2 (09:27→21:58)
[2021-02-05] MEDS: LEVOTHYROXINE 100 MCG VIAL IV SCH (09:27)
[2021-02-05] MEDS: MAGNESIUM OXIDE 400 MG TABLET PO SCH ×2 (09:27→21:58)
[2021-02-05] MEDS: DOCUSATE SODIUM 100 MG CAPSULE PO SCH ×2 (09:27→21:42)
[2021-02-05] MEDS: FUROSEMIDE 20 MG/2 ML VIAL IV SCH ×2 (09:27→15:27)
[2021-02-05] MEDS: methylPREDNISolone SOD SUCC 40 MG/ML VIAL IV SCH (09:27)
[2021-02-05] MEDS: MUPIROCIN OINT 2% 22GM NARES SCH ×2 (09:28→21:42)
[2021-02-05] MEDS: 0.9 % SODIUM CHLORIDE 10 ML SYRINGE IV SCH ×2 (09:28→21:42)
--- NOTE | 2021-02-05 10:09 | General Surgery Progress Note ---
SUBJECTIVE Subjective Patient information: Note initiated : 02/05/21 at 10:07 am Service Date, if different from initiated Date: [] Patient: Dayanna Guo 60 y/o F admitted on 01/27/21 for N/V. Chief Complaint: [] Interval history: Chronic small bowel obstruction, patient feels better today, mild nausea last night but no emesis. Awaiting placement to SNF. Constitutional Vitals: Vital Signs Temp Pulse Resp BP Pulse Ox 97.2 F 96 H 14 112/66 92 02/05/21 07:31 02/05/21 07:31 02/05/21 07:31 02/05/21 07:31 02/05/21 07:31 Period Temp Pulse Resp BP Sys/[place] Pulse Ox Last 24 Hr 97.2 F-98.4 F 86-96 14-20 112-144/66-93 92-97 Intake and Output 02/04/21 02/05/21 02/05/21 21:59 05:59 13:59 Intake Total 3292 614 3094 Output Total 4130 1325 Balance -2610 -965 1000 Weight 232 lb 5 oz Intake & Output: Intake & Output 02/04/21 02/05/21 02/05/21 21:59 05:59 13:59 Intake Total 9422 174 0448 Output Total 4130 1325 Balance -2610 -965 1000 Weight 232 lb 5 oz Intake: IV 1520 1000 Sodium Chloride 0.9% 1,000 ml @ 1000 1000 125 mls/hr IV .Q8H [facility] Rx#: [id number] Potassium Chloride 40 Meq In 520 Dextrose 5% in Water 500 ml @ 130 mls/hr IV UD PRN Rx#: [id number] Oral 360 Output: Void Amount 4100 1325 Stool 30 Other: Meal Breakfast Percent of Meal Consumed 100% Feeding Ability Independent Urine Appearance Clear Clear Urine Color Pale Pale Urine Odor Normal General appearance: cooperative and no acute distress GI/Abdominal GI/Abdominal exam: Present soft; Absent distended and tenderness Additional comments: Ileostomy functioning well. A/P Narrative A/P Narrative: Resolving chronic partial small bowel obstruction, is tolerating full liquid diet. We will continue on full liquid diet, need to watch nutrition make sure she gets adequate nutrition with full liquid diet. Clear to return to [facility] facility, will need to continue to work on strength to be able to get her home. Time Spent With Patient Time: Total time spent is greater than 50% in coordination of care (as documented) at patient's floor/unit and/or counseling patient:
[2021-02-05] MEDS: PROMETHAZINE 25 MG/ML VIAL IV PRN (12:08)
[2021-02-05 17:18] LABS: ALT/SGPT 28 U/L (<40); AST/SGOT 24 U/L (<32); Albumin 2.8 gm/dL (3.2-5.2); Albumin/Globulin Ratio 1.5 (1.0-2.3); Alkaline Phosphatase 84 U/L (39-117); Bilirubin,Total < 0.2 mg/dL (0.1-1.0); Blood Urea Nitrogen 6 mg/dL (6-20); Calcium 7.4 mg/dL (8.6-10.4); Carbon Dioxide 38 mmol/L (22-30); Chloride 97 mmol/L (96-108); Globulin 1.9 gm/dL (2.2-3.7); Glomerular Filtration Rate 49; Glucose 198 mg/dL (70-105)
[2021-02-05] MEDS: INSULIN GLARGINE, HUMAN 1 UNIT/0.01 ML SQ SCH (21:59)
[2021-02-06] MEDS: PYRIDOSTIGMINE BROMIDE 10 MG/2 ML AMPUL IM SCH ×2 (03:42→08:31)
[2021-02-06] MEDS: HYDROmorphone 0.5 MG/0.5 ML SYRINGE IV PRN ×2 (03:49→07:09)
[2021-02-06] MEDS: CYCLOBENZAPRINE 10 MG TABLET PO PRN (04:10)
[2021-02-06] MEDS: LEVOTHYROXINE 100 MCG VIAL IV SCH (07:09)
[2021-02-06] MEDS: ONDANSETRON 4 MG/2 ML VIAL IV PRN (07:16)
[2021-02-06] MEDS: INSULIN LISPRO 1 UNIT/0.01 ML UNIT SQ SCH (07:23)
[2021-02-06] MEDS: DULoxetine 30 MG CAPSULE PO SCH (08:31)
[2021-02-06] MEDS: MUPIROCIN OINT 2% 22GM NARES SCH (08:31)
[2021-02-06] MEDS: GABAPENTIN 300 MG CAPSULE PO SCH (08:31)
[2021-02-06] MEDS: MAGNESIUM OXIDE 400 MG TABLET PO SCH (08:31)
[2021-02-06] MEDS: OCTREOTIDE ACETATE 100 MCG/ML VIAL SQ SCH (08:31)
[2021-02-06] MEDS: DOCUSATE SODIUM 100 MG CAPSULE PO SCH (08:31)
[2021-02-06] MEDS: 0.9 % SODIUM CHLORIDE 10 ML SYRINGE IV SCH (08:31)
[2021-02-06] MEDS: INSULIN GLARGINE, HUMAN 1 UNIT/0.01 ML SQ SCH (08:32)
[2021-02-06] MEDS: CALCIUM CARBONATE 1,250 MG/5 ML ORAL.SUSP PO SCH (08:32)
[2021-02-06] MEDS: methylPREDNISolone SOD SUCC 40 MG/ML VIAL IV SCH (08:42)
== END 2021-02-06 10:30 | DRG 389 ==
LOC: ED 21:51 → ICU 01-27 01:49 → MEDSUR 01-28 16:13
PROVIDERS: ADMIT Surgery; ATTEND Surgery

== ENCOUNTER 2021-02-07 17:57 | Inpatient (IN) ==
[2021-02-07] MEDS ORDERED: IOPAMIDOL 100 ML BOTTLE IV ONE (17:58)
[2021-02-07] MEDS ORDERED: 0.9 % SODIUM CHLORIDE 1,000 ML IV ONE ×2 (18:21→21:12)
[2021-02-07] MEDS ORDERED: KETOROLAC 15 MG/ML VIAL IV ONE (18:28)
--- NOTE | 2021-02-07 18:31 | Emergency Department Note ---
Abdominal Pain HPI General Chief Complaint: Abdominal Pain Stated Complaint: abdominal pain Time Seen by Provider: 02/07/21 18:09 Source: patient Mode of arrival: EMS Limitations: no limitations History of Present Illness HPI Narrative: Narrative: The patient presents with complaint of abdominal pain. She has a history of chronic abdominal pain. She was just hospitalized for several days and discharged yesterday. The patient is concerned that she may have a bowel obstruction. She is requesting pain medication. She denies vomiting. She is passing gas. No fever. No cough. Denies urinary issues. Abdominal pain is diffuse and hard to localize. Again, patient has a history of chronic abdominal pain. Related Data Home Medications Medication Instructions Recorded Confirmed duloxetine 30 mg PO BID 11/30/16 01/27/21 insulin glargine 10 unit SQ BID 09/30/19 01/27/21 magnesium oxide 400 mg PO BID 12/13/19 01/27/21 ondansetron 4 mg SL Q4HP PRN 12/24/19 01/27/21 promethazine 25 mg NM Q6HP PRN 12/24/19 01/27/21 metformin 500 mg PO BID 07/12/20 01/27/21 prednisone 20 mg PO QAC 09/14/20 01/27/21 Accu-Chek 1 each FS BID 12/14/20 01/27/21 metoprolol succinate 50 mg PO DAILY 12/27/20 01/27/21 Fleet Enema 118 ml NM DAILYP PRN 01/27/21 01/27/21 acetaminophen 1,000 mg PO Q6H PRN 01/27/21 01/27/21 alum-mag hydroxide-simeth [Maalox 30 ml PO DAILYP PRN 01/27/21 01/27/21 Maximum Strength] bisacodyl [Dulcolax (bisacodyl)] 10 mg NM QDAY PRN 01/27/21 01/27/21 cyclobenzaprine 10 mg PO BID PRN 01/27/21 01/27/21 gabapentin 300 mg PO BID 01/27/21 01/27/21 magnesium hydroxide [Milk of 400 mg PO QDAY PRN 01/27/21 01/27/21 Magnesia] promethazine 50 mg PO DAILY PRN 01/27/21 01/27/21 simethicone 80 mg PO QDAY PRN 01/27/21 01/27/21 Previous Rx's Medication Instructions Recorded pyridostigmine bromide 5 mg/mL 10 mg IM Q6H #240 ml 01/04/20 injection solution filter needles 19 x 1 1/2" #100 each 10/19/20 promethazine 25 mg tablet 25 mg PO Q6HP PRN #60 tab 11/24/20 Eliquis 5 mg PO BID 150 Days #60 tab 01/09/21 calcitriol 0.25 mcg PO TuThSa@0900 #30 cap 01/09/21 levothyroxine 200 mcg PO QAMAC #30 tab 01/09/21 octreotide acetate 100 mcg SUBCUT TID #25 ml 01/09/21 Allergies Allergy/AdvReac Type Severity Reaction Status Date / Time Sulfa (Sulfonamide Allergy Severe Anaphylaxis Verified 12/27/20 15:25 Antibiotics) adhesive tape AdvReac Mild Blister Verified 12/27/20 15:25 metoclopramide [From Reglan] AdvReac Mild Anxiety Verified 12/27/20 15:25 steri strips AdvReac Mild Blister Uncoded 12/02/19 06:48 Review of Systems ROS ROS Narrative: Narrative: All systems ED: reviewed and negative except as stated. PFSH Narrative Patient History Narrative: Narrative: Medical/Surgical/Family History All Active Problems (Updated 02/07/21 @ 19:29 by Rocky Damian MD) SBO (small bowel obstruction) (Acute) 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 (Acute) Myasthenia gravis (Chronic) Polyglandular autoimmune syndrome (Chronic) Sarcoidosis (Chronic) Hypothyroidism (Chronic) Hypertension (Chronic) Abnormal liver enzymes (Chronic) Chronic use of steroids (Chronic) Recurrent intestinal obstruction (Chronic) Obesity, Class II, BMI 35-39.9 (Chronic) Diabetes mellitus type 2, uncontrolled (Chronic) Chronic intestinal pseudo-obstruction (Chronic) Abdominal pain (Chronic) Chronic, continuous use of opioids (Chronic) LA (obstructive sleep apnea) (Chronic) Recurrent abdominal pain (Chronic) Low blood magnesium level (Chronic) Hyponatremia (Acute) Elevated LFTs (Acute) Small bowel obstruction (Acute) Dehydration (Acute) Primary chronic pseudo-obstruction of small intestine (Acute) UTI (urinary tract infection) (Acute) Hypocalcemia (Acute) Nausea & vomiting (Acute) Severe sepsis (Acute) 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 (Acute) Acute UTI (Acute) Hypercalcemia (Acute) COVID-19 (Acute) Acute kidney injury (Acute) Hypercalcemia (Acute) Hyponatremia (Acute) Elevated serum creatinine (Acute) Low back pain (Acute) Partial small bowel obstruction (Acute) Nausea and vomiting (Acute) Hypokalemia (Acute) Diabetes mellitus (Acute) Recurrent intestinal obstruction (Acute) Intractable abdominal pain (Acute) Intractable vomiting with nausea (Acute) Small bowel ischemia (Acute) Pneumatosis intestinalis (Acute) Right knee sprain (Acute) Generalized weakness (Acute) Hypercalcemia (Acute) Acute hyperkalemia (Acute) Leukocytosis (Acute) Acidosis, lactic (Acute) Fever of unknown origin (Acute) Metabolic acidosis with normal anion gap and failure of bicarbonate regeneration (Acute) Hyponatremia with decreased serum osmolality (Acute) Ileostomy status (Acute) Hypophosphatemia (Acute) Bacteremia (Acute) Hypoparathyroidism, unspecified (Acute) Medical History Abdominal pain Abdominal pain Abdominal wound dehiscence Abnormal liver enzymes Achalasia and cardiospasm Acute respiratory insufficiency Adverse reaction to drug Anaphylaxis Bowel obstruction 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 If no mechanical obstruction, patient says cholinesterase inhibitors usually works Linzess is another possibility Octreotide has helped in children Chronic use of steroids for myasthenia gravis; 10+ years, she started using steroids in 2002. Chronic, continuous use of opioids Need to minimize or stop as they are confusing the bowel issue Constipation due to neurogenic bowel Constipation due to pain medication therapy Dehydration Dehydration Diabetes mellitus type 2, uncontrolled Encounter for care related to Port-a-Cath Fecal impaction Foot sprain Hypercalcemia Hypertension Hypocalcemia Hyponatremia Hypothyroidism Over Rx, decrease to synthroid 200 ug per day and follow TSH and T4 Ileus Infiltrate of lung present on imaging of chest Intractable vomiting Lactic acid acidosis Low blood magnesium level Myasthenia gravis Prednisone dependent at 20 mg daily. 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 Obstruction of descending colon LA (obstructive sleep apnea) Pancreatitis Parastomal hernia with obstruction, without gangrene Partial intestinal obstruction, unspecified as to cause Partial small bowel obstruction Pneumonia Polyglandular autoimmune syndrome I see no dental or nail dystrophy to suggest Type 1 polyglandular failure which is the only type associated with HYPOPARATHYROIDISM and no autoimmune adrenalitis. I have not read that MG is a feature and it's not clear that her thyroid disease is autoimmune in nature. So I'm skeptical of this Dx Primary chronic pseudo-obstruction of large intestine Pseudoobstruction of colon Pyelonephritis Recurrent abdominal pain Recurrent intestinal obstruction many recurrences; many surgical interventions Sarcoidosis Said to be present due to "granuloma's on hands" Check RADHA level On steroids forever for her MG Sepsis Sepsis associated hypotension Sepsis with acute hypoxic respiratory failure Severe sepsis Sigmoid volvulus Sinus tachycardia Sinus tachycardia Small bowel obstruction Small bowel obstruction Small bowel obstruction Small bowel obstruction Small bowel obstruction Small bowel obstruction Small bowel obstruction due to adhesions Small bowel obstruction due to postoperative adhesions Small bowel obstruction, partial Supraventricular tachycardia UTI (urinary tract infection) UTI (urinary tract infection) Volvulus of sigmoid colon Surgical History History of exploratory laparotomy 10/17/2017-with adhesiolysis History of exploratory laparotomy 12/01/2017-with adhesiolysis History of exploratory laparotomy 07/18/2018 History of exploratory laparotomy 08/10/2018-Exploratory laparotomy with small bowel adhesiolysis and incisional hernia repair with mesh graft History of exploratory laparotomy 11/30/2020-with total intraabdominal adhesiolysis S/P ileostomy Family History Father CAD (coronary artery disease) Mother CAD (coronary artery disease) Grandfather CVA (cerebral vascular accident) Grandmother CVA (cerebral vascular accident) Social History Smoking Status: Former smoker Alcohol Intake Frequency: does not drink Substance Use: does not use Exam Narrative Narrative: Narrative: General Limitations: no limitations General appearance: Present alert and in no apparent distress Head Head: Present atraumatic and normal inspection Eye Eye: Present normal appearance Neck Neck: Present normal inspection, full ROM and trachea midline Chest Chest: Present normal inspection and symmetric chest wall rise Respiratory Respiratory: Present normal lung sounds bilaterally; Absent respiratory distress Cardiovascular Cardiovascular: Present normal rhythm and tachycardia; Absent regular rate Adbominal Abdominal: Present soft, tenderness (Diffuse with no point of maximal tenderness.) and normal bowel sounds; Absent distention, guarding, rebound and diminished bowel sounds Extremities Extremities: Present normal inspection and full ROM Back Back: Present full ROM Neurological Neurological: Present alert and oriented X3 Psychiatric Psychiatric: Present normal affect and normal mood Skin Skin: Present warm (WNL) and dry Course Vital Signs Vital signs: Vital Signs Temperature 98.4 F 02/07/21 18:04 Pulse Rate 130 H 02/07/21 18:04 Respiratory Rate 20 02/07/21 18:04 Blood Pressure 134/97 02/07/21 18:04 Pulse Oximetry (%) 97 02/07/21 18:04 Temperature 98.4 F 02/07/21 18:04 Pulse Rate 104 H 02/07/21 19:39 Respiratory Rate 20 02/07/21 18:04 Blood Pressure 179/115 02/07/21 19:39 Pulse Oximetry (%) 93 02/07/21 19:39 MDM MDM Narrative Medical decision making narrative: Narrative: The patient has a history of chronic abdominal pain. She presents for the same. She is concerned she has a bowel obstruction. I have indicated to her that narcotics are contraindicated if we are concerned for a bowel obstruction. We will treat her pain with Toradol. We will do a CT to ensure that there is no acute pathology within the abdomen. We will do this based on labs done yesterday. If the CT does not reveal any new acute emergent pathology, patient will be discharged back to her care facility. 1927 -after reviewing the patient's CT, I spoke to the general surgeon on-call, Dr. Currie. He said he is well familiar with this patient and said that he would admit onto his service. He wanted us to place an NG tube here in the ED but said he would take care of the rest of the orders. Discharge Plan Patient/Caregiver Discharge Instructions Pt seen by HEALTH PROGRAM ANALYST/PA only: No Clinical Impression: SBO (small bowel obstruction) Patient Disposition: Xfer As Inpt ([facility]) Follow up with: Douglas Haque MD [Primary Care Provider] - Prescriptions: No Action pyridostigmine bromide 5 mg/mL solution 10 mg IM Q6H Qty: 240 RF: 5 (DME) filter needles 19 x 1 1/2" 19 x 1 1/2 " needle See Rx Instructions .ROUTE .MEDSUPPLY Qty: 100 RF: 1 promethazine 25 mg tablet 25 mg PO Q6HP PRN (Reason: Nausea) Qty: 60 RF: 3 duloxetine 30 MG capsule 30 mg PO BID RF: 0 insulin glargine 1 UNIT/0.01 ML unit 10 unit SQ BID RF: 0 magnesium oxide 250 MG tablet 400 mg PO BID RF: 0 promethazine 25 MG suppository 25 mg NM Q6HP PRN (Reason: nausea vomitting) RF: 0 ondansetron 4 MG tablet 4 mg SL Q4HP PRN (Reason: Nausea) RF: 0 metformin 500 MG tablet 500 mg PO BID RF: 0 prednisone 20 MG tablet [facility]: 0 Accu-Chek 1 EACH strip 1 each FS BID RF: 0 metoprolol succinate 50 mg Capsule,Sprinkle,Er 24hr 50 mg PO DAILY RF: 0 calcitriol 0.25 mcg Capsule 0.25 mcg PO TuThSa@0900 Qty: 30 RF: 3 Eliquis 5 mg Tablet 5 mg PO BID 150 Days Qty: 60 RF: 6 octreotide acetate 100 mcg/mL Solution 100 mcg subcut TID Qty: 25 RF: 4 levothyroxine 100 mcg Tablet 200 mcg PO QAMAC Qty: 30 RF: 3 cyclobenzaprine 10 mg Tablet 10 mg PO BID PRN (Reason: Muscle Pain) RF: 0 gabapentin 300 mg Tablet 300 mg PO BID RF: 0 acetaminophen 500 mg Tablet 1,000 mg PO Q6H PRN (Reason: Fever) RF: 0 magnesium hydroxide [Milk of Magnesia] 400 mg/5 mL Suspension 400 mg PO QDAY PRN (Reason: Constipation) RF: 0 promethazine 50 mg Tablet 50 mg PO DAILY PRN (Reason: Nausea And Vomiting) RF: 0 bisacodyl [Dulcolax (bisacodyl)] 10 mg Suppository 10 mg NM QDAY PRN (Reason: Constipation) RF: 0 Fleet Enema 19-7 gram/118 mL Enema 118 ml NM DAILYP PRN (Reason: Constipation) RF: 0 alum-mag hydroxide-simeth [Maalox Maximum Strength] 400-400-40 mg/5 mL Suspension 30 ml PO DAILYP PRN (Reason: Nausea) RF: 0 simethicone 80 mg Tablet 80 mg PO QDAY PRN (Reason: Nausea) RF: 0
--- NOTE | 2021-02-07 19:04 | Cat Scan Report ---
CLINICAL INFORMATION: Recurrent small bowel obstruction. COMPARISON: 2020 TECHNIQUE: Following enteric contrast, 80 cc of Isovue-370 were injected intravenously, and 60 seconds later, 0.625 mm helical slices were obtained from the mid heart through the subtrochanteric regions. Following reconstruction, 2.5 mm sagittal, coronal and axial reformatted images were processed and reviewed at bone, lung and soft tissue windows. Five minutes later, 0.625 mm helical slices were obtained from the mid heart through the kidneys and viewed at soft tissue windows.The exam was performed using radiation dose optimization techniques including, but not limited to, automated exposure control, adjustment of the mA and/or kV according to patient size and use of iterative reconstruction technique. FINDINGS: Lung bases show minimal scarring and/or atelectasis. No effusions. The visualized heart is grossly normal. Abdominal images show the gallbladder is surgically absent. Common bile duct is mildly dilated (8 mm) due to post cholecystomy state. This is stable. The liver, both adrenal glands, kidneys and spleen are normal. Mild atrophy of the pancreatic head, neck and proximal body is unchanged. Pelvic images show moderate distention of the urinary bladder. Uterus and ovaries are both normal. Patient is status post total colectomy, partial small bowel resection with Wilberto's pouch construction. There 2 is a ileostomy in the right lower quadrant. A 5 cm parastomal hernia, containing a segment of distal small bowel, is again noted. This results in at least partial small bowel obstruction. The stomach and small bowel, proximal to this region, are moderately dilated. There is also pneumatosis of bowel wall and small amounts of free air in the nondependent anterior mesenteric cavity compatible with ischemia and small bowel perforation. Small amount of free fluid is also noted. Bone windows show chronic L4-5 spondylolisthesis with disc protrusion resulting in severe right IV foraminal narrowing impinging the exiting right L4 nerve root. IMPRESSION: 1. High-grade recurrent distal small bowel obstruction. This may be due to peristomal hernia in the right lower quadrant and/or secondary to adhesions and fibrosis within the intraperitoneal distal small bowel loops. The precise transition point is difficult identified. Stomach and proximal small bowel loops are markedly dilated with pneumatosis in the wall and small amount of free intraperitoneal air compatible with small bowel perforation. 2. Moderate distention urinary bladder. 3. Moderate pancreatic atrophy and neck and proximal body unchanged. Interpreted and Authenticated by: All Lundberg 02/07/21
--- NOTE | 2021-02-07 19:40 | General Surg History&Physical ---
HPI History of Present Illness Patient information: Note initiated : 02/07/21 at 7:35 pm Service Date, if different from initiated Date: [] Patient: Dayanna Guo a 60 y/o F admitted on for Abdominal Pain. Chief Complaint: [] Chief complaint: Recurrent small bowel obstruction History of present illness: Ms. Guo is a 60 year old F who is readmitted for recurrent small bowel obstruction. She was recently hospitalized on 416 through 425 with similar problem. She has a combination of extensive intra- abdominal adhesions and intestinal pseudoobstruction. This is her fifth hospitalization in the past 4 months. She was recently discharged on 02/05/2021 after a 10-day stay for pseudoobstruction with limited pneumatosis. She never had cessation of output of stool or gas but after arriving back at her nursing facility she developed increasing abdominal pain with nausea and was seen in the emergency room on the day of admission with massive dilation of stomach duodenum and all of small bowel down to the stoma. She had gas and stool in her stoma appliance. Patient is in apparent severe distress and is admitted with plans for nonoperative treatment. Patient is informed of the potential for small bowel follow-through to try to fully decompress her small bowel followed by institution of Regonol therapy. It is possible that the use of octreotide may be contributing to her decreased activity and leading to more obstructive symptoms. The octreotide will be discontinued and the patient will be placed on nasogastric suction until most of her bowel is decompressed. The Regonol therapy will be reinstituted at that time. Hopefully her small bowel follow- through will show transit through her bowel and she can gradually have her diet advanced. In the interim she will be placed on TPN. Constitutional Constitutional: Present anorexia, fatigue, fever(s), lethargy, malaise, weakness and weight loss EENT Eyes: Absent change in vision, diplopia and pain Ears: Absent decreased hearing and tinnitus Nose, mouth and throat: Absent dysphagia, hoarseness, sinus pressure, sore throat and throat swelling Cardiovascular Cardiovascular: Present palpatations and rapid heart rate; Absent chest pain, dyspnea on exertion, lightheadedness, orthopnea and pedal edema Respiratory Respiratory: Absent cough, dyspnea, wheezing, snoring, chest congestion and pain with cough Gastrointestinal Gastrointestinal: Present loose stools and nausea; Absent abdominal pain, belching, change in bowel habits, change in stool character, constipation, cramping and vomiting Genitourinary Genitourinary: Present dysuria, urinary frequency and urinary hesitancy Musculoskeletal Musculoskeletal: Present abnormal gait, arthralgias, muscle cramps, muscle weakness, myalgias and numbness Integumentary Integumentary: Absent pruritus and swelling Neurological Neurological: Present abnormal gait, dizziness, headache(s) and weakness; Absent confusion, convulsions, focal weakness, sensory deficit, syncope and tingling Psychiatric Psychiatric: Present depression and memory loss Endocrine Endocrine: Present palpitations Hematologic/Lymphatic Hematologic/Lymphatic: Present easy bruising; Absent easy bleeding and lymphadenopathy Allergic/Immunologic Allergic/Immunologic: Absent tongue swelling, throat swelling, uticaria, wheezing and lip swelling PFSH PFSH All Active Problems (Updated 02/08/21 @ 13:48 by Bertha Currie MD) SBO (small bowel obstruction) (Acute) 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 (Acute) Myasthenia gravis (Chronic) Polyglandular autoimmune syndrome (Chronic) Sarcoidosis (Chronic) Hypothyroidism (Chronic) Hypertension (Chronic) Abnormal liver enzymes (Chronic) Chronic use of steroids (Chronic) Recurrent intestinal obstruction (Chronic) Obesity, Class II, BMI 35-39.9 (Chronic) Diabetes mellitus type 2, uncontrolled (Chronic) Chronic intestinal pseudo-obstruction (Chronic) Abdominal pain (Chronic) Chronic, continuous use of opioids (Chronic) LA (obstructive sleep apnea) (Chronic) Recurrent abdominal pain (Chronic) Low blood magnesium level (Chronic) Hyponatremia (Acute) Elevated LFTs (Acute) Small bowel obstruction (Acute) Dehydration (Acute) Primary chronic pseudo-obstruction of small intestine (Acute) UTI (urinary tract infection) (Acute) Hypocalcemia (Acute) Nausea & vomiting (Acute) Severe sepsis (Acute) 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 (Acute) Acute UTI (Acute) Hypercalcemia (Acute) COVID-19 (Acute) Acute kidney injury (Acute) Hypercalcemia (Acute) Hyponatremia (Acute) Elevated serum creatinine (Acute) Low back pain (Acute) Partial small bowel obstruction (Acute) Nausea and vomiting (Acute) Hypokalemia (Acute) Diabetes mellitus (Acute) Recurrent intestinal obstruction (Acute) Intractable abdominal pain (Acute) Intractable vomiting with nausea (Acute) Small bowel ischemia (Acute) Pneumatosis intestinalis (Acute) Right knee sprain (Acute) Generalized weakness (Acute) Hypercalcemia (Acute) Acute hyperkalemia (Acute) Leukocytosis (Acute) Acidosis, lactic (Acute) Fever of unknown origin (Acute) Metabolic acidosis with normal anion gap and failure of bicarbonate regeneration (Acute) Hyponatremia with decreased serum osmolality (Acute) Ileostomy status (Acute) Hypophosphatemia (Acute) Bacteremia (Acute) Hypoparathyroidism, unspecified (Acute) Medical History Abdominal pain Abdominal pain Abdominal wound dehiscence Abnormal liver enzymes Achalasia and cardiospasm Acute respiratory insufficiency Adverse reaction to drug Anaphylaxis Bowel obstruction 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 If no mechanical obstruction, patient says cholinesterase inhibitors usually works Linzess is another possibility Octreotide has helped in children Chronic use of steroids for myasthenia gravis; 10+ years, she started using steroids in 2002. Chronic, continuous use of opioids Need to minimize or stop as they are confusing the bowel issue Constipation due to neurogenic bowel Constipation due to pain medication therapy Dehydration Dehydration Diabetes mellitus type 2, uncontrolled Encounter for care related to Port-a-Cath Fecal impaction Foot sprain Hypercalcemia Hypertension Hypocalcemia Hyponatremia Hypothyroidism Over Rx, decrease to synthroid 200 ug per day and follow TSH and T4 Ileus Infiltrate of lung present on imaging of chest Intractable vomiting Lactic acid acidosis Low blood magnesium level Myasthenia gravis Prednisone dependent at 20 mg daily. In association with thyoma ~20 yrs [employer] Cholinesterase inhibitor IM and/or PO Nausea Nausea & vomiting Nausea & vomiting Nausea and vomiting Obesity, Class II, BMI 35-39.9 Chronic. Obstruction of descending colon LA (obstructive sleep apnea) Pancreatitis Parastomal hernia with obstruction, without gangrene Partial intestinal obstruction, unspecified as to cause Partial small bowel obstruction Pneumonia Polyglandular autoimmune syndrome I see no dental or nail dystrophy to suggest Type 1 polyglandular failure which is the only type associated with HYPOPARATHYROIDISM and no autoimmune adrenalitis. I have not read that MG is a feature and it's not clear that her thyroid disease is autoimmune in nature. So I'm skeptical of this Dx Primary chronic pseudo-obstruction of large intestine Pseudoobstruction of colon Pyelonephritis Recurrent abdominal pain Recurrent intestinal obstruction many recurrences; many surgical interventions Sarcoidosis Said to be present due to "granuloma's on hands" Check RADHA level On steroids forever for her MG Sepsis Sepsis associated hypotension Sepsis with acute hypoxic respiratory failure Severe sepsis Sigmoid volvulus Sinus tachycardia Sinus tachycardia Small bowel obstruction Small bowel obstruction Small bowel obstruction Small bowel obstruction Small bowel obstruction Small bowel obstruction Small bowel obstruction due to adhesions Small bowel obstruction due to postoperative adhesions Small bowel obstruction, partial Supraventricular tachycardia UTI (urinary tract infection) UTI (urinary tract infection) Volvulus of sigmoid colon Surgical History History of exploratory laparotomy 10/17/2017-with adhesiolysis History of exploratory laparotomy 12/01/2017-with adhesiolysis History of exploratory laparotomy 07/18/2018 History of exploratory laparotomy 08/10/2018-Exploratory laparotomy with small bowel adhesiolysis and incisional hernia repair with mesh graft History of exploratory laparotomy 11/30/2020-with total intraabdominal adhesiolysis S/P ileostomy Family History Father CAD (coronary artery disease) Mother CAD (coronary artery disease) Grandfather CVA (cerebral vascular accident) Grandmother CVA (cerebral vascular accident) Social History alcohol intake frequency: does not drink substance use type: does not use MEDS/ALLERGIES Home Medications and Allergies Home Medications Medication Instructions Recorded Confirmed Type insulin glargine 10 unit SQ BID 09/30/19 02/07/21 History ondansetron 4 mg SL Q4HP PRN 12/24/19 02/07/21 [address] Q6HP PRN 12/24/19 02/07/21 History pyridostigmine bromide 5 mg/mL 10 mg IM Q6H #240 ml 01/04/20 02/07/21 Rx injection solution metformin 500 mg PO BIDAC 07/12/20 02/07/21 History prednisone 20 mg PO QAMCC 09/14/20 02/07/21 History filter needles 19 x 1 1/2" #100 each 10/19/20 02/07/21 Rx promethazine 25 mg tablet 25 mg PO Q6HP PRN #60 tab 11/24/20 02/07/21 Rx Accu-Chek 1 each FS ACHS 12/14/20 02/07/21 History metoprolol succinate 50 mg PO DAILY 12/27/20 02/07/21 History Eliquis 5 mg PO BID 150 Days #60 tab 01/09/21 02/07/21 Rx calcitriol 0.25 mcg PO TuThSa@0900 #30 cap 01/09/21 02/07/21 Rx levothyroxine 200 mcg PO QAMAC #30 tab 01/09/21 02/07/21 Rx octreotide acetate 100 mcg SUBCUT TID #25 ml 01/09/21 02/07/21 Rx Fleet Enema [address] DAILYP PRN 01/27/21 02/07/21 History acetaminophen 1,000 mg PO Q6H PRN 01/27/21 02/07/21 History alum-mag hydroxide-simeth [Maalox 30 ml PO DAILYP PRN 01/27/21 02/07/21 History Maximum Strength] bisacodyl [Dulcolax (bisacodyl)] [address] QDAY PRN 01/27/21 02/07/21 History cyclobenzaprine 10 mg PO BID PRN 01/27/21 02/07/21 History gabapentin 300 mg PO BID 01/27/21 02/07/21 History magnesium hydroxide [Milk of 400 mg PO QDAY PRN 01/27/21 02/07/21 History Magnesia] promethazine 50 mg PO DAILY PRN 01/27/21 02/07/21 History simethicone 80 mg PO QDAY PRN 01/27/21 02/07/21 History duloxetine 30 mg PO BID 02/07/21 02/07/21 History glucagon HCl [Glucagon (HCl) 1 mg IM Q15M PRN 02/07/21 02/07/21 History Emergency Kit] magnesium oxide 400 mg PO BID 02/07/21 02/07/21 History Allergies Allergy/AdvReac Type Severity Reaction Status Date / Time Sulfa (Sulfonamide Allergy Severe Anaphylaxis Verified 12/27/20 15:25 Antibiotics) adhesive tape AdvReac Mild Blister Verified 12/27/20 15:25 metoclopramide [From Reglan] AdvReac Mild Anxiety Verified 12/27/20 15:25 steri strips AdvReac Mild Blister Uncoded 12/02/19 06:48 Physical Examination Vital Signs Vital signs: Temp Pulse Resp BP Pulse Ox 98.4 F 111 H 20 163/99 93 02/07/21 18:04 02/07/21 19:18 02/07/21 18:04 02/07/21 19:18 02/07/21 19:18 General physical appearance General physical exam: well developed, moderate distress, moderate pain, chronically ill and obese Eyes Eye exam: PERRL and normal ocular movement ENT ENT exam: normal mucosa and no hearing loss Head Head exam IM: Present atraumatic, normal inspection and normocephalic Neck Neck exam: no masses, no bruits, trachea midline, no lymphadenopathy and no venous distension Cardiovascular Cardiovascular exam IM: Present normal rate and rhythm, +S1, +S2 and tachycardia (Heart rate 130s) Respiratory Respiratory exam: normal expansion, normal respiratory effort and clear to percussion Abdomen Abdomen: Present soft, non tender, bowel sounds and surgical scars (Healed abdominal surgical scars); Absent guarding Integumentary Integumentary: Present no rash, no growths and no abnormal pigmentation Neurologic Neurologic: Present normal coordination and normal sensation Musculoskeletal Musculoskeletal: Present normal gait and normal posture Psychiatric Psychiatric: Present oriented to time, oriented to person, oriented to place, speech is normal and memory intact Results Labs Result diagrams: 02/07/21 21:00 02/08/21 09:23 Labs: All other labs normal. A/P Assessment and plan (1) SBO (small bowel obstruction): Status: Acute (2) Myasthenia gravis: Status: Chronic Comment: Prednisone dependent at 20 mg daily. In association with thyoma ~20 yrs [employer] Cholinesterase inhibitor IM and/or PO (3) Recurrent intestinal obstruction: Status: Chronic Comment: many recurrences; many surgical interventions (4) Diabetes mellitus type 2, uncontrolled: Status: Chronic Qualifiers: Coma presence: unspecified whether coma present (5) Chronic intestinal pseudo-obstruction: Status: Chronic Comment: If no mechanical obstruction, patient says cholinesterase inhibitors usually works Linzess is another possibility Octreotide has helped in children (6) Hypocalcemia: Status: Resolved Comment: Definitely hypoparathyroid Restart Calcitriol 0.5 mg qOD CaCO3 po TID UNPREDICTABLE GI ABSORTION IS THE ISSUE Recombinent PTH sq will be trump card if needed Narrative A/P Narrative: ng to moderate obstruction IV HYDRATION WITH SALINE RESTART REGONOL AFTER BOWEL IS DECOMPRESSED SMALL BOWEL FOLLOWTHROUGH IN 2 DAYS ZOSYN 3.375GM IV Q6H Time Spent With Patient Time: Total time spent is greater than 50% in coordination of care (as documented) at patient's floor/unit and/or counseling patient:
[2021-02-07] MEDS ORDERED: 0.9 % SODIUM CHLORIDE 1,000 ML IV SCH (19:45)
[2021-02-07] MEDS ORDERED: PROMETHAZINE 25 MG/ML VIAL IV PRN (19:46)
[2021-02-07] MEDS ORDERED: ONDANSETRON 4 MG ODT TABLET SL PRN (19:46)
[2021-02-07] MEDS: HYDROmorphone 1 MG/ML SYRINGE IV PRN ×2 (20:14→22:22)
[2021-02-07] MEDS ORDERED: SENNOSIDES 1 TABLET PO SCH (21:00)
[2021-02-07] MEDS: 0.9 % SODIUM CHLORIDE 10 ML SYRINGE IV SCH (21:03)
[2021-02-07 21:55] LABS: Hemoglobin 12.3 g/dL (12.0-15.0); Mean Cell Volume 93.7 fL (80.0-100.0); Mean Corpuscular HGB Conc 30.8 g/dL (31.0-36.0); Mean Platelet Volume 8.8 fL (7.4-10.4); Platelet Count 432 K/mcL (140-440); RBC 4.27 M/mcL (4.00-5.20); Red Cell Distribution Width 14.8 % (11.5-14.5); WBC 9.1 K/mcL (4.5-11.0)
[2021-02-07] MEDS: PYRIDOSTIGMINE BROMIDE 10 MG/2 ML AMPUL IM SCH (22:22)
[2021-02-07 22:26] LABS: Hypochromasia 1+ (None Seen); Lymphocytes % 5 % (15-49); Monocytes % (Manual) 8 % (1-12); Platelet Estimate NORMAL (Normal); RBC Morphology ABNORMAL (Normal); Segmented Neutrophils % 87 % (38-78)
[2021-02-07 22:29] LABS: ALT/SGPT 24 U/L (<40); AST/SGOT 24 U/L (<32); Albumin 2.7 gm/dL (3.2-5.2); Alkaline Phosphatase 98 U/L (39-117); Bilirubin,Direct < 0.2 mg/dL (0-0.3); Bilirubin,Total 0.2 mg/dL (0.1-1.0); Blood Urea Nitrogen 14 mg/dL (6-20); Calcium 7.8 mg/dL (8.6-10.4); Carbon Dioxide 38 mmol/L (22-30); Chloride 85 mmol/L (96-108); Globulin 2.6 gm/dL (2.2-3.7); Glomerular Filtration Rate 49; Glucose 107 mg/dL (70-105); Lactate Dehydrogenase 400 U/L (135-225); Phosphorous 3.7 mg/dL (2.5-4.5); Triglycerides 134 mg/dL (<150); Uric Acid 5.8 mg/dL (2.5-8.0)
[2021-02-07] MEDS: 0.9 % SODIUM CHLORIDE 1,000 ML IV SCH (22:52)
[2021-02-07] MEDS: PIPERACILLIN SODIUM/TAZOBACTAM 3.375 GM in DEXTROSE 5% IN WATER 50 ML IV SCH (22:53)
[2021-02-08] MEDS: HYDROmorphone 1 MG/ML SYRINGE IV PRN ×8 (00:18→23:50)
[2021-02-08] MEDS ORDERED: DEXTROSE 50% 50 ML VIAL IV ONE ×2 (01:58→02:00)
--- NOTE | 2021-02-08 03:40 | XRay Report ---
CLINICAL INFORMATION: verify placement of NG tube COMPARISON: 02/01/2021 FINDINGS: NG tube overlies the gastric body. Stomach and visualized small bowel are markedly dilated compatible with recurrent distal small bowel obstruction. IMPRESSION: NG tube overlies the gastric body. Recurrent small bowel obstruction. Interpreted and Authenticated by: All Lundberg 02/08/21
[2021-02-08] MEDS: PYRIDOSTIGMINE BROMIDE 10 MG/2 ML AMPUL IM SCH ×4 (04:14→21:38)
[2021-02-08] MEDS: 0.9 % SODIUM CHLORIDE 1,000 ML IV SCH ×4 (06:01→23:44)
[2021-02-08] MEDS: 0.9 % SODIUM CHLORIDE 10 ML SYRINGE IV SCH ×3 (06:02→21:41)
[2021-02-08] MEDS: PIPERACILLIN SODIUM/TAZOBACTAM 3.375 GM in DEXTROSE 5% IN WATER 50 ML IV SCH ×4 (06:02→23:51)
[2021-02-08] MEDS: INSULIN LISPRO 1 UNIT/0.01 ML UNIT SQ SCH ×3 (06:06→17:48)
[2021-02-08] MEDS ORDERED: INSULIN LISPRO 1 UNIT/0.01 ML UNIT SQ SCH (07:30)
[2021-02-08] MEDS ORDERED: ALBUMIN HUMAN 25 GM/100 ML BAG IV ONE (07:31)
[2021-02-08] MEDS ORDERED: CALCIUM GLUCONATE 4.65 MEQ/10 ML VIAL IV ONE (07:37)
[2021-02-08] MEDS ORDERED: METOPROLOL TARTRATE 5 MG/5 ML VIAL IV PRN (07:38)
[2021-02-08] MEDS ORDERED: TPN PER PHARMACY IV SCH (07:45)
--- NOTE | 2021-02-08 08:24 | XRay Report ---
CLINICAL INFORMATION: F/U OF SMALL BOWEL OBSTRUCTION COMPARISON: 02/07/2021 FINDINGS: OG tube overlies the gastric body. Stomach and upper small bowel are now decompressed. The mid and distal small bowel remain mildly dilated. Pneumatosis and a small amount of free air in the interloop region again seen. It is not increasing. IMPRESSION: Improving distal small bowel obstruction following OG decompression Interpreted and Authenticated by: All Lundberg 02/08/21
[2021-02-08] MEDS: methylPREDNISolone SOD SUCC 125 MG/2 ML VIAL IV SCH ×2 (08:25→21:38)
[2021-02-08] MEDS: ENOXAPARIN 40 MG/0.4 ML SYRINGE SQ SCH (08:28)
[2021-02-08] MEDS ORDERED: CALCIUM GLUCONATE 9.3 MEQ in DEXTROSE 5% IN WATER 100 ML IV ONE (09:15)
[2021-02-08 11:40] LABS: ALT/SGPT 20 U/L (<40); AST/SGOT 18 U/L (<32); Albumin 2.8 gm/dL (3.2-5.2); Albumin/Globulin Ratio 1.6 (1.0-2.3); Alkaline Phosphatase 78 U/L (39-117); Bilirubin,Direct < 0.2 mg/dL (0-0.3); Bilirubin,Total 0.2 mg/dL (0.1-1.0); Blood Urea Nitrogen 14 mg/dL (6-20); Calcium 7.2 mg/dL (8.6-10.4); Carbon Dioxide 46 mmol/L (22-30); Chloride 91 mmol/L (96-108); Globulin 1.8 gm/dL (2.2-3.7); Glomerular Filtration Rate 45; Glucose 53 mg/dL (70-105); Lactate Dehydrogenase 328 U/L (135-225); Phosphorous 4.6 mg/dL (2.5-4.5); Triglycerides 107 mg/dL (<150); Uric Acid 5.6 mg/dL (2.5-8.0)
[2021-02-08] MEDS: DIAZEPAM 10 MG/2 ML SYRINGE IV SCH ×3 (12:00→17:49)
[2021-02-08] MEDS: POTASSIUM CHLORIDE 40 MEQ in DEXTROSE 5% IN WATER 500 ML IV SCH ×2 (12:53→17:03)
[2021-02-08 13:32] LABS: Prealbumin 9.3 mg/dL (20.0-40.0)
--- NOTE | 2021-02-08 13:50 | General Surgery Progress Note ---
SUBJECTIVE Subjective Patient information: Note initiated : 02/08/21 at 1:49 pm Service Date, if different from initiated Date: [] Patient: Dayanna Guo 60 y/o F admitted on 02/07/21 for Abdominal Pain. Chief Complaint: [] Principal diagnosis: Small bowel obstruction due to combination of chronic adhesions and intesti Interval history: Patient is improved. She had high volume nasogastric output last evening and her abdomen is much softer. She has less pain. She is still putting out a small amount of pasty stool through her stoma and she has some gas in her stoma appliance. Her abdominal tenderness is much improved. She has been started on TPN because of persistently low blood glucose. Constitutional Vitals: Vital Signs Temp Pulse Resp BP Pulse Ox 96.8 F L 102 H 14 123/71 96 02/08/21 12:00 02/08/21 12:00 02/08/21 12:00 02/08/21 12:00 02/08/21 12:00 Period Temp Pulse Resp BP Sys/Archuleta Pulse Ox Last 24 Hr 96.8 F-98.4 F 86-130 14-20 106-179/64-124 93-98 Intake and Output 02/07/21 02/08/21 02/08/21 21:59 05:59 13:59 Intake Total 1000 2577 440 Output Total 1200 2700 1175 Balance -200 -123 -735 Weight 243 lb 1.6 oz 243 lb 1.6 oz Patient Weight 02/09/21 05:59 Weight 243 lb 1.6 oz Intake & Output: Intake & Output 02/07/21 02/08/21 02/08/21 21:59 05:59 13:59 Intake Total 1000 2577 440 Output Total 1200 2700 1175 Balance -200 -123 -735 Weight 243 lb 1.6 oz 243 lb 1.6 oz Intake: IV 1000 2157 220 Sodium Chloride 0.9% 1,000 ml @ 1000 2107 150 mls/hr IV .Q6H40M [facility] Rx#: [id number] Calcium Gluconate 9.3 Meq In 120 Dextrose 5% in Water 100 ml @ 120 mls/hr IV ONCE ONE Rx#: [id number] Zosyn 3.375 gm In Dextrose 5% 50 100 in Water 50 ml @ 100 mls/hr IV Q6H [facility] Rx#:[id number] Oral 420 220 Output: Gastric Drainage 1200 2250 1000 Right Nare 1200 2250 1000 Void Amount 450 175 Other: Percent of Meal Consumed ice chips Urine Color Light Shwetha Light Shwetha Urine Odor Strong Head Head exam: Present atraumatic, normal inspection and normocephalic Eye Eye exam: Present EOMI and normal appearance Pupils: Present PERRL ENT ENT exam: Present mucous membranes dry Neck Neck exam: Present full ROM and normal inspection; Absent lymphadenopathy and thyromegaly Respiratory Respiratory exam: Present normal respiratory exam and CTAB; Absent rales, rhonchi and wheezes Cardiovascular Cardiovascular exam: Present RRR, +S1, +S2 and tachycardia; Absent JVD GI/Abdominal GI/Abdominal exam: Present distended, hyperactive bowel sounds and tenderness; Absent guarding and mass Extremities Exam Extremities exam: Present full ROM, normal inspection and neurovascular intact; Absent pedal edema Back Exam Back exam: Present full ROM; Absent tenderness Neurological Exam Neurological exam: Present alert, motor sensory deficit and oriented X3 Psychiatric Psychiatric exam: Present anxious and depressed Skin Skin exam: Absent rash A/P Assessment and plan (1) SBO (small bowel obstruction): Status: Acute (2) Myasthenia gravis: Status: Chronic Comment: Prednisone dependent at 20 mg daily. 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[employer] Cholinesterase inhibitor IM and/or PO (3) Recurrent intestinal obstruction: Status: Chronic Comment: many recurrences; many surgical interventions (4) Diabetes mellitus type 2, uncontrolled: Status: Chronic Qualifiers: Coma presence: unspecified whether coma present (5) Chronic intestinal pseudo-obstruction: Status: Chronic Comment: If no mechanical obstruction, patient says cholinesterase inhibitors usually works Linzess is another possibility Octreotide has helped in children (6) Hypocalcemia: Status: Resolved Comment: Definitely hypoparathyroid Restart Calcitriol 0.5 mg qOD CaCO3 po TID UNPREDICTABLE GI ABSORTION IS THE ISSUE Recombinent PTH sq will be trump card if needed Narrative A/P Narrative: Continue IV hydration and electrolyte replacement Start TPN Follow-up abdominal x-rays in the morning with plans for Gastrografin small bowel follow-through in 1 to 2 days Continue sliding scale insulin with supplemental glucose as needed through her TPN Switch to oral medications to IV Time Spent With Patient Time: Total time spent is greater than 50% in coordination of care (as documented) at patient's floor/unit and/or counseling patient:
[2021-02-08] MEDS ORDERED: MAGNESIUM SULFATE IV SCH (14:00)
[2021-02-08] MEDS ORDERED: [UNRECOGNIZED DRUG - OTHER] IV SCH (14:00)
[2021-02-08] MEDS ORDERED: POTASSIUM CHLORIDE IV SCH (14:00)
[2021-02-08] MEDS ORDERED: MVI IV SCH (14:00)
[2021-02-08] MEDS ORDERED: CALCIUM GLUCONATE IV SCH (14:00)
[2021-02-09] MEDS: INSULIN LISPRO 1 UNIT/0.01 ML UNIT SQ SCH ×4 (00:20→17:44)
[2021-02-09] MEDS: DIAZEPAM 10 MG/2 ML SYRINGE IV SCH ×4 (00:20→18:33)
[2021-02-09] MEDS: HYDROmorphone 1 MG/ML SYRINGE IV PRN ×8 (02:24→20:35)
[2021-02-09] MEDS: PYRIDOSTIGMINE BROMIDE 10 MG/2 ML AMPUL IM SCH ×4 (02:36→20:28)
[2021-02-09] MEDS: PIPERACILLIN SODIUM/TAZOBACTAM 3.375 GM in DEXTROSE 5% IN WATER 50 ML IV SCH ×3 (05:32→18:30)
[2021-02-09] MEDS: 0.9 % SODIUM CHLORIDE 10 ML SYRINGE IV SCH ×3 (05:47→20:35)
[2021-02-09] MEDS: 0.9 % SODIUM CHLORIDE 1,000 ML IV SCH ×3 (06:29→21:50)
[2021-02-09 06:42] LABS: Basophils # (Auto) 0.01 K/mcL (0.00-0.20); Basophils % (Auto) 0.3 % (0.0-2.0); Eosinophils # (Auto) 0 K/mcL (0.00-0.70); Eosinophils % (Auto) 0 % (0.0-7.0); Hematocrit 28.4 % (36.0-48.0); Hemoglobin 8.5 g/dL (12.0-15.0); Lymphocytes % (Auto) 10.2 % (15.0-49.0); Mean Corpuscular HGB Conc 29.9 g/dL (31.0-36.0); Mean Platelet Volume 9.5 fL (7.4-10.4); Monocytes # (Auto) 0.19 K/mcL (0.10-0.90); Monocytes % (Auto) 4.8 % (1.0-12.0); Neutrophils % (Auto) 84.7 % (38.0-78.0); Platelet Count 365 K/mcL (140-440); RBC 2.99 M/mcL (4.00-5.20); Red Cell Distribution Width 14.5 % (11.5-14.5); WBC 3.9 K/mcL (4.5-11.0)
[2021-02-09 07:22] LABS: ALT/SGPT 17 U/L (<40); AST/SGOT 16 U/L (<32); Albumin 2.6 gm/dL (3.2-5.2); Albumin/Globulin Ratio 1.5 (1.0-2.3); Alkaline Phosphatase 57 U/L (39-117); Bilirubin,Direct < 0.2 mg/dL (0-0.3); Bilirubin,Total 0.2 mg/dL (0.1-1.0); Blood Urea Nitrogen 16 mg/dL (6-20); Calcium 7.5 mg/dL (8.6-10.4); Carbon Dioxide 45 mmol/L (22-30); Chloride 92 mmol/L (96-108); Globulin 1.7 gm/dL (2.2-3.7); Glomerular Filtration Rate 55; Glucose 139 mg/dL (70-105); Lactate Dehydrogenase 306 U/L (135-225); Phosphorous 2.9 mg/dL (2.5-4.5); Triglycerides 97 mg/dL (<150); Uric Acid 4.7 mg/dL (2.5-8.0)
[2021-02-09] MEDS: LEVOTHYROXINE 100 MCG VIAL IV SCH (07:24)
[2021-02-09] MEDS: methylPREDNISolone SOD SUCC 125 MG/2 ML VIAL IV SCH ×2 (08:49→20:27)
[2021-02-09] MEDS: ENOXAPARIN 40 MG/0.4 ML SYRINGE SQ SCH (08:50)
[2021-02-09] MEDS: MAGNESIUM SULFATE IV SCH (14:11)
[2021-02-09] MEDS: POTASSIUM CHLORIDE IV SCH (14:11)
[2021-02-09] MEDS: MVI IV SCH (14:11)
[2021-02-09] MEDS: CALCIUM GLUCONATE IV SCH (14:11)
[2021-02-09] MEDS: [UNRECOGNIZED DRUG - OTHER] IV SCH (14:11)
--- NOTE | 2021-02-09 15:40 | General Surgery Progress Note ---
SUBJECTIVE Subjective Patient information: Note initiated : 02/09/21 at 3:35 pm Service Date, if different from initiated Date: [] Patient: Dayanna Guo 60 y/o F admitted on 02/07/21 for Abdominal Pain. Chief Complaint: [] Principal diagnosis: Small bowel obstruction due to combination of chronic adhesions and intesti Interval history: Patient states that she feels better overall. She continues to have output of gas and small amount of stool through her stoma. Her abdomen is much smaller and softer. She has minimal tenderness. She has normal active bowel sounds. Constitutional Vitals: Vital Signs Temp Pulse Resp BP Pulse Ox 96.5 F L 81 18 143/75 93 02/09/21 12:00 02/09/21 12:00 02/09/21 12:00 02/09/21 12:00 02/09/21 12:00 Period Temp Pulse Resp BP Sys/Archuleta Pulse Ox Last 24 Hr 96.5 F-98.7 F 81-95 18-22 109-143/67-75 92-97 Intake and Output 02/09/21 02/09/21 02/09/21 05:59 13:59 21:59 Intake Total 1670 1260 Output Total 1800 600 Balance -130 660 Intake & Output: Intake & Output 02/09/21 02/09/21 02/09/21 05:59 13:59 21:59 Intake Total 1670 1260 Output Total 1800 600 Balance -130 660 Intake: IV 1570 1100 Sodium Chloride 0.9% 1,000 ml @ 1000 1000 150 mls/hr IV .Q6H40M [facility] Rx#: [id number] Zosyn 3.375 gm In Dextrose 5% 50 100 in Water 50 ml @ 100 mls/hr IV Q6H [facility] Rx#:[id number] Potassium Chloride 40 Meq In 520 Dextrose 5% in Water 500 ml @ 130 mls/hr IV Q4H [facility] Rx#: [id number] Oral 100 160 Output: Gastric Drainage 1500 400 Right Nare 1500 400 Void Amount 200 200 Stool 100 Other: Urine Appearance Clear Urine Color Bright Yellow Urine Odor Strong Head Head exam: Present atraumatic, normal inspection and normocephalic Eye Eye exam: Present EOMI and normal appearance Pupils: Present PERRL Neck Neck exam: Present full ROM and normal inspection; Absent lymphadenopathy and thyromegaly Respiratory Respiratory exam: Present normal respiratory exam and CTAB; Absent rales, rhonchi and wheezes Cardiovascular Cardiovascular exam: Present RRR, +S1, +S2 and tachycardia; Absent JVD GI/Abdominal GI/Abdominal exam: Present hyperactive bowel sounds; Absent distended, guarding, mass and tenderness Extremities Exam Extremities exam: Present full ROM, normal inspection and neurovascular intact; Absent pedal edema Neurological Exam Neurological exam: Present alert, motor sensory deficit and oriented X3 Additional comments: Mild twitching of both upper extremities which is controll ed with diazepam Psychiatric Psychiatric exam: Present anxious and depressed Skin Skin exam: Absent rash A/P Assessment and plan (1) 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: Status: Acute (2) Myasthenia gravis: Status: Chronic Comment: Prednisone dependent at 20 mg daily. In association with thyoma ~20 yrs [employer] Cholinesterase inhibitor IM and/or PO (3) Polyglandular autoimmune syndrome: Status: Chronic Comment: I see no dental or nail dystrophy to suggest Type 1 polyglandular failure which is the only type associated with HYPOPARATHYROIDISM and no autoimmune adrenalitis. I have not read that MG is a feature and it's not clear that her thyroid disease is autoimmune in nature. So I'm skeptical of this Dx (4) Recurrent intestinal obstruction: Status: Chronic Comment: many recurrences; many surgical interventions (5) Diabetes mellitus type 2, uncontrolled: Status: Chronic Qualifiers: Coma presence: unspecified whether coma present (6) Chronic intestinal pseudo-obstruction: Status: Chronic Comment: If no mechanical obstruction, patient says cholinesterase inhibitors usually works Linzess is another possibility Octreotide has helped in children Narrative A/P Narrative: Small bowel follow-through to be performed tomorrow TPN will be increased to maximum Time Spent With Patient Time: Total time spent is greater than 50% in coordination of care (as documented) at patient's floor/unit and/or counseling patient:
[2021-02-09] MEDS: ONDANSETRON 4 MG/2 ML VIAL IV PRN (17:39)
[2021-02-10] MEDS: PIPERACILLIN SODIUM/TAZOBACTAM 3.375 GM in DEXTROSE 5% IN WATER 50 ML IV SCH ×5 (00:01→23:46)
[2021-02-10] MEDS: INSULIN LISPRO 1 UNIT/0.01 ML UNIT SQ SCH ×5 (00:08→23:47)
[2021-02-10] MEDS: HYDROmorphone 1 MG/ML SYRINGE IV PRN ×9 (00:08→22:17)
[2021-02-10] MEDS: DIAZEPAM 10 MG/2 ML SYRINGE IV SCH ×4 (00:42→17:35)
[2021-02-10] MEDS: PYRIDOSTIGMINE BROMIDE 10 MG/2 ML AMPUL IM SCH ×4 (02:16→20:25)
[2021-02-10] MEDS: 0.9 % SODIUM CHLORIDE 1,000 ML IV SCH ×5 (05:02→22:17)
[2021-02-10] MEDS: 0.9 % SODIUM CHLORIDE 10 ML SYRINGE IV SCH ×3 (05:18→20:27)
[2021-02-10] MEDS: LEVOTHYROXINE 100 MCG VIAL IV SCH (07:14)
[2021-02-10] MEDS: ENOXAPARIN 40 MG/0.4 ML SYRINGE SQ SCH (08:21)
[2021-02-10] MEDS: methylPREDNISolone SOD SUCC 125 MG/2 ML VIAL IV SCH ×2 (08:40→20:23)
[2021-02-10] MEDS: ONDANSETRON 4 MG/2 ML VIAL IV PRN (09:33)
[2021-02-10 11:01] LABS: ALT/SGPT 20 U/L (<40); AST/SGOT 19 U/L (<32); Albumin 2.8 gm/dL (3.2-5.2); Albumin/Globulin Ratio 1.9 (1.0-2.3); Alkaline Phosphatase 57 U/L (39-117); Bilirubin,Direct < 0.2 mg/dL (0-0.3); Bilirubin,Total 0.2 mg/dL (0.1-1.0); Blood Urea Nitrogen 18 mg/dL (6-20); Calcium 7.1 mg/dL (8.6-10.4); Carbon Dioxide 38 mmol/L (22-30); Chloride 94 mmol/L (96-108); Globulin 1.5 gm/dL (2.2-3.7); Glomerular Filtration Rate 49; Glucose 219 mg/dL (70-105); Lactate Dehydrogenase 397 U/L (135-225); Phosphorous 2.9 mg/dL (2.5-4.5); Triglycerides 125 mg/dL (<150); Uric Acid 3.1 mg/dL (2.5-8.0)
[2021-02-10] MEDS ORDERED: DIATRIZOATE MEGLU/DIATRIZO SOD 30 ML BOTTLE PO ONE (12:29)
--- NOTE | 2021-02-10 13:18 | XRay Report ---
CLINICAL INFORMATION: f/u of partial small bowel follow through ; use ng TECHNIQUE: Following machine boss imaging, water-soluble contrast was instilled via NG tube and serial visualized. Were obtained of the abdomen and pelvis for a total of two hours and 40 minutes FINDINGS: The stomach is unremarkable. Proximal small bowel is moderately dilated. The distal small bowel is decompressed. Transition point is not identified with certainty. Presumably, there are adhesions in the mid jejunum. There is no contrast extravasation into the mesenteric cavity suggestive of perforation. Small bowel transit time is approximately two hours and 30 minutes IMPRESSION: Partial distal small bowel obstruction likely related to adhesions or stricture. Small bowel transit time: Two hour 30 minutes Interpreted and Authenticated by: All Lundberg 02/10/21
--- NOTE | 2021-02-10 13:29 | General Surgery Progress Note ---
SUBJECTIVE Subjective Patient information: Note initiated : 02/10/21 at 1:23 pm Service Date, if different from initiated Date: [] Patient: Dayanna Guo 60 y/o F admitted on 02/07/21 for Abdominal Pain. Chief Complaint: [] Principal diagnosis: Small bowel obstruction due to combination of chronic adhesions and intesti Interval history: Patient is improved. She had small bowel follow-through which showed transit through the small bowel in 2-1/2hours. There is mild transition in mid bowel however there is no actual hang up in contrast. She is put out 500 cc of liquid stool since the procedure has been completed. She still had a large volume of nasogastric output when she was hooked back to suction. Urinary output is good. Patient has had some hallucinations and states that she is hearing voices. She is advised that this is probably related to her medications. Constitutional Vitals: Vital Signs Temp Pulse Resp BP Pulse Ox 99.2 F H 95 H 20 144/84 90 02/10/21 11:54 02/10/21 11:54 02/10/21 11:54 02/10/21 11:54 02/10/21 11:54 Period Temp Pulse Resp BP Sys/Archuleta Pulse Ox Last 24 Hr 96.8 F-99.2 F 63-101 18-20 120-156/65-97 89-95 Intake and Output 02/09/21 02/10/21 02/10/21 21:59 05:59 13:59 Intake Total 1000 1250 1050 Output Total 450 1195 950 Balance 550 55 100 Weight 245 lb 3.2 oz 245 lb 3.2 oz Patient Weight 02/11/21 05:59 Weight 245 lb 3.2 oz Intake & Output: Intake & Output 02/09/21 02/10/21 02/10/21 21:59 05:59 13:59 Intake Total 1000 1250 1050 Output Total 450 1195 950 Balance 550 55 100 Weight 245 lb 3.2 oz 245 lb 3.2 oz Intake: IV 1000 1100 1050 Sodium Chloride 0.9% 1,000 ml @ 1000 1000 1000 150 mls/hr IV .Q6H40M [facility] Rx#: [id number] Zosyn 3.375 gm In Dextrose 5% 100 50 in Water 50 ml @ 100 mls/hr IV Q6H [facility] Rx#:[id number] Oral 150 Output: Gastric Drainage 200 1000 250 Right Nare 200 1000 250 Void Amount 250 175 Stool 20 700 Other: Urine Appearance Clear Urine Color Straw Stool Color Brown Stool Consistency Soft Head Head exam: Present atraumatic, normal inspection and normocephalic Eye Eye exam: Present EOMI and normal appearance Pupils: Present PERRL ENT ENT exam: Present mucous membranes dry Neck Neck exam: Present full ROM and normal inspection; Absent lymphadenopathy and thyromegaly Respiratory Respiratory exam: Present normal respiratory exam and CTAB; Absent rales, rho nchi and wheezes Cardiovascular Cardiovascular exam: Present RRR, +S1, +S2 and tachycardia; Absent JVD GI/Abdominal GI/Abdominal exam: Present hyperactive bowel sounds; Absent distended, guarding, mass and tenderness Additional comments: Patient abdomen is soft and nondistended. She does not have any tenderness and there is no distention. Her stoma is functioning no rmally Extremities Exam Extremities exam: Present full ROM and neurovascular intact Back Exam Back exam: Present full ROM and normal inspection Neurological Exam Neurological exam: Present normal gait and oriented X3; Absent motor sensory deficit Psychiatric Psychiatric exam: Present agitated, anxious and depressed Skin Skin exam: Absent erythema, petechiae and rash A/P Assessment and plan (1) 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: Status: Acute (2) Myasthenia gravis: Status: Chronic Comment: Prednisone dependent at 20 mg daily. In association with thyoma ~20 yrs [employer] Cholinesterase inhibitor IM and/or PO (3) Polyglandular autoimmune syndrome: Status: Chronic Comment: I see no dental or nail dystrophy to suggest Type 1 polyglandular failure which is the only type associated with HYPOPARATHYROIDISM and no autoimmune adrenalitis. I have not read that MG is a feature and it's not clear that her thyroid disease is autoimmune in nature. So I'm skeptical of this Dx (4) Hypertension: Status: Chronic Qualifiers: Hypertension type: essential hypertension Qualified Code(s): I10 - Essential (primary) hypertension (5) Chronic use of steroids: Status: Chronic Comment: for myasthenia gravis; 10+ years, she started using steroids in 2002. (6) Chronic intestinal pseudo-obstruction: Status: Chronic Comment: If no mechanical obstruction, patient says cholinesterase inhibitors usually works Linzess is another possibility Octreotide has helped in children (7) Chronic, continuous use of opioids: Status: Chronic Comment: Need to minimize or stop as they are confusing the bowel issue (8) LA (obstructive sleep apnea): Status: Chronic Narrative A/P Narrative: Patient will be continued on present therapy. If she continues to have good output I will start her on clear liquids and MiraLAX tomorrow. TPN will be continued. Time Spent With Patient Time: Total time spent is greater than 50% in coordination of care (as documented) at patient's floor/unit and/or counseling patient:
[2021-02-10] MEDS: CALCIUM GLUCONATE IV SCH (14:48)
[2021-02-10] MEDS: MVI IV SCH (14:48)
[2021-02-10] MEDS: POTASSIUM CHLORIDE IV SCH (14:48)
[2021-02-10] MEDS: [UNRECOGNIZED DRUG - OTHER] IV SCH (14:48)
[2021-02-10] MEDS: MAGNESIUM SULFATE IV SCH (14:48)
[2021-02-10 14:59] LABS: Basophils # (Auto) 0 K/mcL (0.00-0.20); Basophils % (Auto) 0 % (0.0-2.0); Eosinophils # (Auto) 0 K/mcL (0.00-0.70); Eosinophils % (Auto) 0 % (0.0-7.0); Hemoglobin 8.7 g/dL (12.0-15.0); Lymphocytes # (Auto) 0.26 K/mcL (1.50-4.80); Lymphocytes % (Auto) 6.3 % (15.0-49.0); Mean Cell Volume 99.3 fL (80.0-100.0); Mean Platelet Volume 8.9 fL (7.4-10.4); Monocytes # (Auto) 0.22 K/mcL (0.10-0.90); Monocytes % (Auto) 5.3 % (1.0-12.0); Neutrophils % (Auto) 88.4 % (38.0-78.0); Platelet Count 384 K/mcL (140-440); RBC 3.02 M/mcL (4.00-5.20); Red Cell Distribution Width 14.6 % (11.5-14.5); WBC 4.1 K/mcL (4.5-11.0)
[2021-02-10] MEDS ORDERED: FAT EMULSION 20% 250 ML in PREMIX 1 BAG IV SCH (16:00)
[2021-02-11] MEDS: DIAZEPAM 10 MG/2 ML SYRINGE IV SCH ×5 (00:04→23:20)
[2021-02-11] MEDS: HYDROmorphone 1 MG/ML SYRINGE IV PRN ×10 (00:57→22:16)
[2021-02-11] MEDS: PYRIDOSTIGMINE BROMIDE 10 MG/2 ML AMPUL IM SCH ×4 (03:10→20:15)
[2021-02-11] MEDS: INSULIN LISPRO 1 UNIT/0.01 ML UNIT SQ SCH ×4 (05:07→23:16)
[2021-02-11] MEDS: 0.9 % SODIUM CHLORIDE 1,000 ML IV SCH ×4 (05:08→22:45)
[2021-02-11] MEDS: PIPERACILLIN SODIUM/TAZOBACTAM 3.375 GM in DEXTROSE 5% IN WATER 50 ML IV SCH ×4 (05:09→23:16)
[2021-02-11] MEDS: 0.9 % SODIUM CHLORIDE 10 ML SYRINGE IV SCH ×3 (05:09→20:21)
[2021-02-11] MEDS: LEVOTHYROXINE 100 MCG VIAL IV SCH (07:20)
[2021-02-11 07:30] LABS: Basophils # (Auto) 0.02 K/mcL (0.00-0.20); Basophils % (Auto) 0.4 % (0.0-2.0); Eosinophils # (Auto) 0 K/mcL (0.00-0.70); Eosinophils % (Auto) 0 % (0.0-7.0); Hematocrit 28.8 % (36.0-48.0); Hemoglobin 8.6 g/dL (12.0-15.0); Lymphocytes # (Auto) 0.29 K/mcL (1.50-4.80); Lymphocytes % (Auto) 5.4 % (15.0-49.0); Mean Cell Volume 97.3 fL (80.0-100.0); Mean Corpuscular HGB Conc 29.9 g/dL (31.0-36.0); Mean Platelet Volume 8.9 fL (7.4-10.4); Monocytes # (Auto) 0.23 K/mcL (0.10-0.90); Monocytes % (Auto) 4.3 % (1.0-12.0); Neutrophils % (Auto) 89.9 % (38.0-78.0); Platelet Count 371 K/mcL (140-440); RBC 2.96 M/mcL (4.00-5.20); Red Cell Distribution Width 14.5 % (11.5-14.5); WBC 5.4 K/mcL (4.5-11.0)
[2021-02-11 07:42] LABS: Prealbumin 13.6 mg/dL (20.0-40.0)
[2021-02-11 07:43] LABS: ALT/SGPT 26 U/L (<40); AST/SGOT 20 U/L (<32); Albumin/Globulin Ratio 1.6 (1.0-2.3); Alkaline Phosphatase 66 U/L (39-117); Bilirubin,Direct < 0.2 mg/dL (0-0.3); Bilirubin,Total < 0.2 mg/dL (0.1-1.0); Blood Urea Nitrogen 20 mg/dL (6-20); Calcium 7.1 mg/dL (8.6-10.4); Carbon Dioxide 34 mmol/L (22-30); Chloride 96 mmol/L (96-108); Globulin 1.9 gm/dL (2.2-3.7); Glomerular Filtration Rate 62; Glucose 306 mg/dL (70-105); Lactate Dehydrogenase 440 U/L (135-225); Phosphorous 2.8 mg/dL (2.5-4.5); Triglycerides 117 mg/dL (<150)
[2021-02-11] MEDS: ENOXAPARIN 40 MG/0.4 ML SYRINGE SQ SCH (08:58)
[2021-02-11] MEDS: methylPREDNISolone SOD SUCC 125 MG/2 ML VIAL IV SCH ×2 (08:58→20:16)
--- NOTE | 2021-02-11 13:08 | General Surgery Progress Note ---
SUBJECTIVE Subjective Patient information: Note initiated : 02/11/21 at 1:05 pm Service Date, if different from initiated Date: [] Patient: Dayanna Guo 60 y/o F admitted on 02/07/21 for Abdominal Pain. Chief Complaint: [] Principal diagnosis: Small bowel obstruction due to combination of chronic adhesions and intesti Constitutional Vitals: Vital Signs Temp Pulse Resp BP Pulse Ox 97.9 F 75 16 179/92 94 02/11/21 11:36 02/11/21 11:36 02/11/21 11:36 02/11/21 11:36 02/11/21 11:36 Period Temp Pulse Resp BP Sys/Archuleta Pulse Ox Last 24 Hr 97.9 F-98.7 F 75-92 16-18 151-187/86-101 91-100 Intake and Output 02/10/21 02/11/21 02/11/21 21:59 05:59 13:59 Intake Total 3558 1100 993 Output Total 1400 2800 2300 Balance 2158 -1700 -1307 Weight 244 lb 3 oz Intake & Output: Intake & Output 02/10/21 02/11/21 02/11/21 21:59 05:59 13:59 Intake Total 3558 1100 993 Output Total 1400 2800 2300 Balance 2158 -1700 -1307 Weight 244 lb 3 oz Intake: IV 3558 1100 993 Sodium Chloride 0.9% 1,000 ml @ 1000 1000 993 150 mls/hr IV .Q6H40M [facility] Rx#: [id number] Calcium Gluconate 20 Meq 2258 Magnesium Sulfate 32.48 Meq Potassium Chloride 40 Meq Infuvite Adult 10 ml Potassium Phosphate 40 Meq Sodium Chloride 40 Meq In Clinimix 5%- 20% Solution 2,000 ml @ 85 mls/ hr IV Q24H [facility] Rx#:[id number] Intralipid 20% 250 ml In Premix 250 1 Bag @ 25 mls/hr IV TuFr@1600 [facility] Rx#:[id number] Zosyn 3.375 gm In Dextrose 5% 50 100 in Water 50 ml @ 100 mls/hr IV Q6H [facility] Rx#:[id number] Oral 0 Output: Gastric Drainage 1400 950 400 Right Nare 1400 950 400 Void Amount 1400 1700 Stool 450 200 Other: Meal Breakfast Percent of Meal Consumed 100% Feeding Ability Independent Urine Appearance Clear Clear Urine Color Bright Yellow Pale Urine Odor Normal Stool Color Brown # Voids 1 Head Head exam: Present atraumatic, normal inspection and normocephalic Eye Eye exam: Present EOMI and normal appearance Pupils: Present PERRL ENT ENT exam: Present mucous membranes dry Neck Neck exam: Present full ROM and normal inspection; Absent lymphadenopathy and thyromegaly Respiratory Respiratory exam: Present normal respiratory exam and CTAB; Absent rales, rhonchi and wheezes Cardiovascular Cardiovascular exam: Present RRR, +S1, +S2 and tachycardia; Absent JVD GI/Abdominal GI/Abdominal exam: Present hyperactive bowel sounds; Absent distended, guarding, mass and tenderness Additional comments: Patient abdomen is soft and nondistended. She does not have any tenderness and there is no distention. Her stoma is functioning normally Extremities Exam Extremities exam: Present full ROM and neurovascular intact Back Exam Back exam: Present full ROM and normal inspection Neurological Exam Neurological exam: Present normal gait and oriented X3; Absent motor sensory deficit Psychiatric Psychiatric exam: Present agitated, anxious and depressed Additional comments: Auditory hallucinations have improved since yesterday Skin Skin exam: Absent erythema, petechiae and rash A/P Assessment and plan (1) 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: Status: Acute (2) Myasthenia gravis: Status: Chronic Comment: Prednisone dependent at 20 mg daily. In association with thyoma ~20 yrs [employer] Cholinesterase inhibitor IM and/or PO (3) Polyglandular autoimmune syndrome: Status: Chronic Comment: I see no dental or nail dystrophy to suggest Type 1 polyglandular failure which is the only type associated with HYPOPARATHYROIDISM and no autoimmune adrenalitis. I have not read that MG is a feature and it's not clear that her thyroid disease is autoimmune in nature. So I'm skeptical of this Dx (4) Chronic use of steroids: Status: Chronic Comment: for myasthenia gravis; 10+ years, she started using steroids in 2002. (5) Obesity, Class II, BMI 35-39.9: Status: Chronic Comment: Chronic. (6) Diabetes mellitus type 2, uncontrolled: Status: Chronic Qualifiers: Coma presence: unspecified whether coma present (7) Chronic intestinal pseudo-obstruction: Status: Chronic Comment: If no mechanical obstruction, patient says cholinesterase inhibitors usually works Linzess is another possibility Octreotide has helped in children (8) Chronic, continuous use of opioids: Status: Chronic Comment: Need to minimize or stop as they are confusing the bowel issue Narrative A/P Narrative: Clamp nasogastric tube Start clear liquids Start MiraLAX with apple juice 4 times daily Check abdominal x-rays in the morning Decrease IV to 50 cc/h Pantoprazole 40 mg twice daily Carafate 1 g 4 times daily Increase Regonol to 10 mg IM every 6 hours Out of bed in chair at least 3 times daily as tolerated Time Spent With Patient Time: Total time spent is greater than 50% in coordination of care (as documented) at patient's floor/unit and/or counseling patient:
[2021-02-11] MEDS: PANTOPRAZOLE 40 MG VIAL IV SCH ×2 (13:28→17:26)
[2021-02-11] MEDS: POLYETHYLENE GLYCOL 3350 17 GM PACKET PO SCH ×2 (13:29→20:15)
--- NOTE | 2021-02-11 13:49 | XRay Report ---
CLINICAL INFORMATION: FOLLOW -UP OF SMALL BOWEL OBSTRUCTION COMPARISON: Or 32,021 FINDINGS: NG tube overlies the gastric body. Stomach is decompressed. The small bowel remains mildly dilated, but has partially decompressed narrowing the x-ray yesterday. Pneumatosis and the small bowel wall and small amount of free air seen as before IMPRESSION: Distal small bowel obstruction improving following NG decompression Interpreted and Authenticated by: All Lundberg 02/11/21
[2021-02-11] MEDS ORDERED: POTASSIUM CHLORIDE IV SCH (14:00)
[2021-02-11] MEDS ORDERED: CALCIUM GLUCONATE IV SCH (14:00)
[2021-02-11] MEDS ORDERED: MAGNESIUM SULFATE IV SCH (14:00)
[2021-02-11] MEDS ORDERED: [UNRECOGNIZED DRUG - OTHER] IV SCH (14:00)
[2021-02-11] MEDS ORDERED: MVI IV SCH (14:00)
[2021-02-11] MEDS: SUCRALFATE 1 GM/10 ML ORAL.SUSP PO SCH ×2 (17:26→23:16)
[2021-02-12] MEDS: HYDROmorphone 1 MG/ML SYRINGE IV PRN ×10 (00:16→21:31)
[2021-02-12] MEDS: POLYETHYLENE GLYCOL 3350 17 GM PACKET PO SCH ×2 (01:56→07:41)
[2021-02-12] MEDS: PYRIDOSTIGMINE BROMIDE 10 MG/2 ML AMPUL IM SCH ×4 (02:35→21:37)
[2021-02-12] MEDS: PIPERACILLIN SODIUM/TAZOBACTAM 3.375 GM in DEXTROSE 5% IN WATER 50 ML IV SCH ×4 (05:08→23:40)
[2021-02-12] MEDS: INSULIN LISPRO 1 UNIT/0.01 ML UNIT SQ SCH ×4 (05:18→23:56)
[2021-02-12] MEDS: SUCRALFATE 1 GM/10 ML ORAL.SUSP PO SCH ×5 (05:18→23:43)
[2021-02-12] MEDS: DIAZEPAM 10 MG/2 ML SYRINGE IV SCH ×4 (05:19→23:58)
[2021-02-12] MEDS: 0.9 % SODIUM CHLORIDE 10 ML SYRINGE IV SCH ×3 (05:19→21:39)
[2021-02-12] MEDS: PANTOPRAZOLE 40 MG VIAL IV SCH ×2 (07:40→17:09)
[2021-02-12] MEDS: LEVOTHYROXINE 100 MCG VIAL IV SCH (07:40)
[2021-02-12 08:07] LABS: Basophils # (Auto) 0.02 K/mcL (0.00-0.20); Basophils % (Auto) 0.3 % (0.0-2.0); Eosinophils # (Auto) 0 K/mcL (0.00-0.70); Eosinophils % (Auto) 0 % (0.0-7.0); Hematocrit 30.5 % (36.0-48.0); Hemoglobin 9.3 g/dL (12.0-15.0); Lymphocytes # (Auto) 0.45 K/mcL (1.50-4.80); Lymphocytes % (Auto) 6.3 % (15.0-49.0); Mean Cell Volume 95.9 fL (80.0-100.0); Mean Corpuscular HGB Conc 30.5 g/dL (31.0-36.0); Mean Platelet Volume 9.2 fL (7.4-10.4); Monocytes # (Auto) 0.42 K/mcL (0.10-0.90); Monocytes % (Auto) 5.9 % (1.0-12.0); Neutrophils % (Auto) 87.5 % (38.0-78.0); Platelet Count 393 K/mcL (140-440); RBC 3.18 M/mcL (4.00-5.20); Red Cell Distribution Width 14.2 % (11.5-14.5); WBC 7.1 K/mcL (4.5-11.0)
[2021-02-12 08:09] LABS: Prealbumin 15.8 mg/dL (20.0-40.0)
[2021-02-12 08:16] LABS: ALT/SGPT 102 U/L (<40); AST/SGOT 107 U/L (<32); Albumin/Globulin Ratio 1.5 (1.0-2.3); Alkaline Phosphatase 105 U/L (39-117); Bilirubin,Direct < 0.2 mg/dL (0-0.3); Bilirubin,Total 0.2 mg/dL (0.1-1.0); Blood Urea Nitrogen 20 mg/dL (6-20); Calcium 7.6 mg/dL (8.6-10.4); Carbon Dioxide 31 mmol/L (22-30); Chloride 94 mmol/L (96-108); Glomerular Filtration Rate 70; Glucose 383 mg/dL (70-105); Lactate Dehydrogenase 654 U/L (135-225); Phosphorous 3.2 mg/dL (2.5-4.5); Triglycerides 167 mg/dL (<150); Uric Acid 1.3 mg/dL (2.5-8.0)
[2021-02-12] MEDS: methylPREDNISolone SOD SUCC 125 MG/2 ML VIAL IV SCH ×2 (08:23→21:37)
[2021-02-12] MEDS: ENOXAPARIN 40 MG/0.4 ML SYRINGE SQ SCH (08:23)
[2021-02-12] MEDS: 0.9 % SODIUM CHLORIDE 1,000 ML IV SCH ×2 (10:38→15:02)
[2021-02-12] MEDS ORDERED: HYDROCORTISONE CRM 1% TUBE 30GM TOPICAL PRN (13:06)
--- NOTE | 2021-02-12 13:06 | General Surgery Progress Note ---
SUBJECTIVE Subjective Patient information: Note initiated : 02/12/21 at 1:04 pm Service Date, if different from initiated Date: [] Patient: Dayanna Guo 60 y/o F admitted on 02/07/21 for Abdominal Pain. Chief Complaint: [] Principal diagnosis: Small bowel obstruction due to combination of chronic adhesions and intesti Interval history: Patient is doing well. She has had at least 3 bowel movements of small volumes since yesterday. Her abdomen remains soft. She denies nausea with the nasogastric tube clamped over 24 hours. She is tolerated clear liquids without difficulty. White blood count 7.1, hemoglobin 9.3, hematocrit 30.5, BUN 20, creatinine 0.9. Abdominal x-rays shows minimal gas in the distal small bowel without evidence of obstruction Constitutional Vitals: Vital Signs Temp Pulse Resp BP Pulse Ox 97.4 F 97 H 16 151/81 97 02/12/21 12:10 02/12/21 12:10 02/12/21 12:10 02/12/21 12:10 02/12/21 12:10 Period Temp Pulse Resp BP Sys/Archuleta Pulse Ox Last 24 Hr 97.3 F-98.8 F 65-97 12-18 151-189/72-93 94-99 Intake and Output 02/11/21 02/12/21 02/12/21 21:59 05:59 13:59 Intake Total 2984.1016 580 600 Output Total 3125 2725 1300 Balance -140.8984 -2145 -700 Weight 239 lb 3.2 oz 239 lb 3.2 oz Patient Weight 02/13/21 05:59 Weight 239 lb 3.2 oz Intake & Output: Intake & Output 02/11/21 02/12/21 02/12/21 21:59 05:59 13:59 Intake Total 2984.1016 580 600 Output Total 3125 2725 1300 Balance -140.8984 -2145 -700 Weight 239 lb 3.2 oz 239 lb 3.2 oz Intake: IV 2984.1016 100 600 Sodium Chloride 0.9% 1,000 ml @ 1000 0 600 50 mls/hr IV .Q20H [facility] Rx#: [id number] Calcium Gluconate 20 Meq 1934.1016 Magnesium Sulfate 32.48 Meq Potassium Chloride 40 Meq Infuvite Adult 10 ml Potassium Phosphate 40 Meq Sodium Chloride 40 Meq In Clinimix 5%- 20% Solution 2,000 ml @ 85 mls/ hr IV Q24H [facility] Rx#:[id number] Zosyn 3.375 gm In Dextrose 5% 50 100 in Water 50 ml @ 100 mls/hr IV Q6H [facility] Rx#:[id number] Oral 480 Tube Feeding 0 0 Output: Void Amount 3125 2475 1150 Stool 250 150 Other: Urine Appearance Clear Clear Clear Urine Color Pale Pale Pale Urine Odor Normal Normal Stool Size Small Stool Color Green Brown Green Stool Consistency Liquid Soft Head Head exam: Present atraumatic, normal inspection and normocephalic Eye Eye exam: Present EOMI and normal appearance Pupils: Present PERRL ENT ENT exam: Present mucous membranes dry Neck Neck exam: Present full ROM and normal inspection; Absent lymphadenopathy and thyromegaly Respiratory Respiratory exam: Present normal respiratory exam and CTAB; Absent rales, rhonchi and wheezes Cardiovascular Cardiovascular exam: Present RRR, +S1, +S2 and tachycardia; Absent JVD GI/Abdominal GI/Abdominal exam: Present hyperactive bowel sounds; Absent distended, guarding, mass and tenderness Additional comments: Patient abdomen is soft and nondistended. She does not have any tenderness and there is no distention. Her stoma is functioning normally Extremities Exam Extremities exam: Present full ROM and neurovascular intact A/P Assessment and plan (1) 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: Status: Acute (2) Myasthenia gravis: Status: Chronic Comment: Prednisone dependent at 20 mg daily. In association with thyoma ~20 yrs [employer] Cholinesterase inhibitor IM and/or PO (3) Polyglandular autoimmune syndrome: Status: Chronic Comment: I see no dental or nail dystrophy to suggest Type 1 polyglandular failure which is the only type associated with HYPOPARATHYROIDISM and no autoimmune adre nalitis. I have not read that MG is a feature and it's not clear that her thyroid disease is autoimmune in nature. So I'm skeptical of this Dx (4) Hypertension: Status: Chronic Qualifiers: Hypertension type: essential hypertension Qualified Code(s): I10 - Essential (primary) hypertension (5) Chronic use of steroids: Status: Chronic Comment: for myasthenia gravis; 10+ years, she started using steroids in 2002. (6) Diabetes mellitus type 2, uncontrolled: Status: Chronic Qualifiers: Coma presence: unspecified whether coma present (7) Chronic intestinal pseudo-obstruction: Status: Chronic Comment: If no mechanical obstruction, patient says cholinesterase inhibitors usually works Linzess is another possibility Octreotide has helped in children Narrative A/P Narrative: Discontinue nasogastric tube Full liquid diet Follow-up abdominal x-rays in the morning Time Spent With Patient Time: Total time spent is greater than 50% in coordination of care (as documented) at patient's floor/unit and/or counseling patient:
--- NOTE | 2021-02-12 13:36 | XRay Report ---
CLINICAL INFORMATION: FOLLOW -UP OF SMALL BOWEL OBSTRUCTION COMPARISON: 02/11/2021 FINDINGS: NG tube tip is in stable position overlying the gastric body. Stomach and small bowel are now decompressed with only minimal amounts of gas. No free air. IMPRESSION: Distal small bowel obstruction pattern has resolved. Negative exam Interpreted and Authenticated by: All Lundberg 02/12/21
[2021-02-12] MEDS: CALCIUM GLUCONATE IV SCH ×2 (14:15→19:15)
[2021-02-12] MEDS: [UNRECOGNIZED DRUG - OTHER] IV SCH ×2 (14:15→19:15)
[2021-02-12] MEDS: MAGNESIUM SULFATE IV SCH ×2 (14:15→19:15)
[2021-02-12] MEDS: MVI IV SCH ×2 (14:15→19:15)
[2021-02-12] MEDS: POTASSIUM CHLORIDE IV SCH ×2 (14:15→19:15)
[2021-02-12] MEDS ORDERED: traMADol 50 MG TABLET PO ONE (23:26)
[2021-02-12] MEDS: traMADol 50 MG TABLET PO PRN (23:27)
[2021-02-13] MEDS: HYDROmorphone 1 MG/ML SYRINGE IV PRN ×6 (01:31→22:52)
[2021-02-13] MEDS: PYRIDOSTIGMINE BROMIDE 10 MG/2 ML AMPUL IM SCH ×4 (03:52→22:25)
[2021-02-13] MEDS: PIPERACILLIN SODIUM/TAZOBACTAM 3.375 GM in DEXTROSE 5% IN WATER 50 ML IV SCH ×3 (06:03→17:40)
[2021-02-13] MEDS: SUCRALFATE 1 GM/10 ML ORAL.SUSP PO SCH ×3 (06:06→17:39)
[2021-02-13] MEDS: 0.9 % SODIUM CHLORIDE 10 ML SYRINGE IV SCH ×3 (06:06→20:11)
[2021-02-13] MEDS: INSULIN LISPRO 1 UNIT/0.01 ML UNIT SQ SCH ×3 (06:20→17:50)
[2021-02-13] MEDS: DIAZEPAM 10 MG/2 ML SYRINGE IV SCH (06:21)
[2021-02-13 06:50] LABS: Basophils # (Auto) 0.02 K/mcL (0.00-0.20); Basophils % (Auto) 0.3 % (0.0-2.0); Eosinophils # (Auto) 0 K/mcL (0.00-0.70); Eosinophils % (Auto) 0 % (0.0-7.0); Hematocrit 28.3 % (36.0-48.0); Hemoglobin 8.8 g/dL (12.0-15.0); Lymphocytes # (Auto) 0.37 K/mcL (1.50-4.80); Lymphocytes % (Auto) 5.7 % (15.0-49.0); Mean Cell Volume 92.5 fL (80.0-100.0); Mean Corpuscular HGB Conc 31.1 g/dL (31.0-36.0); Mean Platelet Volume 9.1 fL (7.4-10.4); Monocytes # (Auto) 0.44 K/mcL (0.10-0.90); Monocytes % (Auto) 6.8 % (1.0-12.0); Neutrophils % (Auto) 87.2 % (38.0-78.0); Platelet Count 323 K/mcL (140-440); RBC 3.06 M/mcL (4.00-5.20); WBC 6.5 K/mcL (4.5-11.0)
[2021-02-13 07:00] LABS: Prealbumin 17.8 mg/dL (20.0-40.0)
[2021-02-13] MEDS: LEVOTHYROXINE 100 MCG VIAL IV SCH (07:23)
[2021-02-13] MEDS: PANTOPRAZOLE 40 MG VIAL IV SCH ×2 (07:24→16:00)
[2021-02-13] MEDS: traMADol 50 MG TABLET PO PRN ×4 (07:24→20:09)
[2021-02-13 07:56] LABS: ALT/SGPT 84 U/L (<40); AST/SGOT 29 U/L (<32); Albumin 2.7 gm/dL (3.2-5.2); Albumin/Globulin Ratio 1.5 (1.0-2.3); Alkaline Phosphatase 84 U/L (39-117); Bilirubin,Direct < 0.2 mg/dL (0-0.3); Bilirubin,Total 0.2 mg/dL (0.1-1.0); Blood Urea Nitrogen 19 mg/dL (6-20); Calcium 7.4 mg/dL (8.6-10.4); Carbon Dioxide 33 mmol/L (22-30); Chloride 96 mmol/L (96-108); Globulin 1.8 gm/dL (2.2-3.7); Glomerular Filtration Rate 81; Glucose 335 mg/dL (70-105); Lactate Dehydrogenase 513 U/L (135-225); Phosphorous 3.2 mg/dL (2.5-4.5); Triglycerides 172 mg/dL (<150)
[2021-02-13] MEDS: methylPREDNISolone SOD SUCC 125 MG/2 ML VIAL IV SCH ×2 (08:58→20:11)
[2021-02-13] MEDS: ENOXAPARIN 40 MG/0.4 ML SYRINGE SQ SCH (08:58)
[2021-02-13] MEDS ORDERED: CYCLOBENZAPRINE (PP) 10 MG TABLET PO PRN (09:49)
--- NOTE | 2021-02-13 10:01 | XRay Report ---
CLINICAL INFORMATION: FOLLOW -UP OF SMALL BOWEL OBSTRUCTION COMPARISON: 02/12/2021 FINDINGS: NG tube is now out. Stomach and small bowel show normal amounts of gas. Small amount of pneumatosis bowel seen as before. IMPRESSION: Negative-no evidence recurrent small bowel obstruction following removal NG tube Interpreted and Authenticated by: All Lundberg 02/13/21
[2021-02-13] MEDS: 0.9 % SODIUM CHLORIDE 1,000 ML IV SCH (11:56)
[2021-02-13] MEDS: METOPROLOL SUCCINATE 50 MG TAB.XL.24H PO SCH (12:43)
[2021-02-13] MEDS ORDERED: [UNRECOGNIZED DRUG - OTHER] IV SCH (14:00)
[2021-02-13] MEDS ORDERED: MVI IV SCH (14:00)
[2021-02-13] MEDS ORDERED: POTASSIUM CHLORIDE IV SCH (14:00)
[2021-02-13] MEDS ORDERED: CALCIUM GLUCONATE IV SCH (14:00)
[2021-02-13] MEDS ORDERED: MAGNESIUM SULFATE IV SCH (14:00)
--- NOTE | 2021-02-13 14:23 | General Surgery Progress Note ---
SUBJECTIVE Subjective Patient information: Note initiated : 02/13/21 at 2:19 pm Service Date, if different from initiated Date: [] Patient: Dayanna Guo 60 y/o F admitted on 02/07/21 for Abdominal Pain. Chief Complaint: [] Principal diagnosis: Small bowel obstruction due to combination of chronic adhesions and intesti Interval history: Patient continues to improve. She is tolerating full liquids without difficulty since yesterday. X-rays this morning shows a normal bowel gas pattern without any significant distention. She is having movement through her stoma and all of the contrast has cleared her bowel. White blood count 6.5, hemoglobin 8.8, hematocrit 28.3, potassium 4.5, BUN 19, creatinine 0.8, magnesium 1.9. Constitutional Vitals: Vital Signs Temp Pulse Resp BP Pulse Ox 96.9 F L 97 H 20 153/85 96 02/13/21 12:00 02/13/21 12:00 02/13/21 12:00 02/13/21 12:00 02/13/21 12:00 Period Temp Pulse Resp BP Sys/Archuleta Pulse Ox Last 24 Hr 96.9 F-98.8 F 77-97 15-20 145-171/75-97 96-97 Intake and Output 02/13/21 02/13/21 02/13/21 05:59 13:59 21:59 Intake Total 433 2631 Output Total 1700 1025 Balance -1267 1606 Intake & Output: Intake & Output 02/13/21 02/13/21 02/13/21 05:59 13:59 21:59 Intake Total 433 2631 Output Total 1700 1025 Balance -1267 1606 Intake: IV 433 1591 Sodium Chloride 0.9% 1,000 ml @ 1000 50 mls/hr IV .Q20H [facility] Rx#: [id number] Calcium Gluconate 30 Meq 383 491 Magnesium Sulfate 32.48 Meq Potassium Chloride 40 Meq Infuvite Adult 10 ml Potassium Phosphate 60 Meq Sodium Chloride 80 Meq In Clinimix 5%- 20% Solution 2,000 ml @ 85 mls/ hr IV Q24H [facility] Rx#:[id number] Zosyn 3.375 gm In Dextrose 5% 50 100 in Water 50 ml @ 100 mls/hr IV Q6H [facility] Rx#:[id number] Oral 1040 Output: Urine Catheter Amount 300 200 Void Amount 1300 825 Stool 100 Other: Meal Lunch Percent of Meal Consumed 75% Feeding Ability Independent Urine Appearance Clear Clear Urine Color Pale Straw Bright Yellow Light Shwetha Urine Odor Normal Normal Stool Color Brown Stool Consistency Liquid Watery Head Head exam: Present atraumatic, normal inspection and normocephalic Eye Eye exam: Present EOMI and normal appearance Pupils: Present PERRL ENT ENT exam: Present mucous membranes dry Neck Neck exam: Present full ROM and normal inspection; Absent lymphadenopathy and thyromegaly Respiratory Respiratory exam: Present normal respiratory exam and CTAB; Absent rales, rhonchi and wheezes Cardiovascular Cardiovascular exam: Present RRR, +S1, +S2 and tachycardia; Absent JVD GI/Abdominal GI/Abdominal exam: Present hyperactive bowel sounds; Absent distended, guarding, mass and tenderness Additional comments: Patient abdomen is soft and nondistended. She does not have any tenderness and there is no distention. Her stoma is functioning normally Extremities Exam Extremities exam: Present full ROM and neurovascular intact Back Exam Back exam: Present full ROM and normal inspection Neurological Exam Neurological exam: Present normal gait and oriented X3; Absent motor sensory deficit Psychiatric Psychiatric exam: Present agitated, anxious and depressed Additional comments: Auditory hallucinations have resolved A/P Assessment and plan (1) 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: Status: Acute (2) Myasthenia gravis: Status: Chronic Comment: Prednisone dependent at 20 mg daily. In association with thyoma ~20 yrs [employer] Cholinesterase inhibitor IM and/or PO (3) Polyglandular autoimmune syndrome: Status: Chronic Comment: I see no dental or nail dystrophy to suggest Type 1 polyglandular failure which is the only type associated with HYPOPARATHYROIDISM and no autoimmune adrenalitis. I have not read that MG is a feature and it's not clear that her thyroid disease is autoimmune in nature. So I'm skeptical of this Dx (4) Hypertension: Status: Chronic Qualifiers: Hypertension type: essential hypertension Qualified Code(s): I10 - Essential (primary) hypertension (5) Chronic use of steroids: Status: Chronic Comment: for myasthenia gravis; 10+ years, she started using steroids in 2002. (6) Diabetes mellitus type 2, uncontrolled: Status: Chronic Qualifiers: Coma presence: unspecified whether coma present (7) Chronic intestinal pseudo-obstruction: Status: Chronic Comment: If no mechanical obstruction, patient says cholinesterase inhibitors usually works Linzess is another possibility Octreotide has helped in children Narrative A/P Narrative: Plans are being made for discharge home with home health She will need continued TPN therapy She will need a lift chair so that she will be able to move from the chair to a standing position and to the bed. Time Spent With Patient Time: Total time spent is greater than 50% in coordination of care (as documented) at patient's floor/unit and/or counseling patient:
[2021-02-13] MEDS: APIXABAN 5 MG TABLET PO SCH (20:10)
[2021-02-13] MEDS: GABAPENTIN 300 MG CAPSULE PO SCH (20:10)
[2021-02-13] MEDS: DULoxetine 30 MG CAPSULE PO SCH (20:10)
[2021-02-13] MEDS: CYCLOBENZAPRINE 10 MG TABLET PO PRN (22:25)
[2021-02-14] MEDS: traMADol 50 MG TABLET PO PRN ×4 (00:21→20:11)
[2021-02-14] MEDS: SUCRALFATE 1 GM/10 ML ORAL.SUSP PO SCH ×5 (00:24→23:29)
[2021-02-14] MEDS: INSULIN LISPRO 1 UNIT/0.01 ML UNIT SQ SCH ×5 (00:32→23:29)
[2021-02-14] MEDS: PIPERACILLIN SODIUM/TAZOBACTAM 3.375 GM in DEXTROSE 5% IN WATER 50 ML IV SCH ×3 (00:33→13:13)
[2021-02-14] MEDS: PYRIDOSTIGMINE BROMIDE 10 MG/2 ML AMPUL IM SCH ×4 (03:29→21:29)
[2021-02-14] MEDS: CYCLOBENZAPRINE 10 MG TABLET PO PRN (05:55)
[2021-02-14] MEDS: 0.9 % SODIUM CHLORIDE 10 ML SYRINGE IV SCH ×3 (05:57→21:31)
[2021-02-14 07:57] LABS: ALT/SGPT 79 U/L (<40); AST/SGOT 27 U/L (<32); Albumin 2.4 gm/dL (3.2-5.2); Albumin/Globulin Ratio 1.3 (1.0-2.3); Alkaline Phosphatase 76 U/L (39-117); Bilirubin,Direct < 0.2 mg/dL (0-0.3); Bilirubin,Total < 0.2 mg/dL (0.1-1.0); Blood Urea Nitrogen 22 mg/dL (6-20); Calcium 7.4 mg/dL (8.6-10.4); Carbon Dioxide 27 mmol/L (22-30); Chloride 101 mmol/L (96-108); Globulin 1.8 gm/dL (2.2-3.7); Glomerular Filtration Rate 100; Glucose 290 mg/dL (70-105); Lactate Dehydrogenase 492 U/L (135-225); Phosphorous 3.7 mg/dL (2.5-4.5); Triglycerides 192 mg/dL (<150)
[2021-02-14] MEDS: PANTOPRAZOLE 40 MG VIAL IV SCH (08:12)
[2021-02-14] MEDS: LEVOTHYROXINE 100 MCG VIAL IV SCH (08:12)
[2021-02-14] MEDS: ENOXAPARIN 40 MG/0.4 ML SYRINGE SQ SCH (08:12)
[2021-02-14] MEDS: METOPROLOL SUCCINATE 50 MG TAB.XL.24H PO SCH (08:13)
[2021-02-14] MEDS: methylPREDNISolone SOD SUCC 125 MG/2 ML VIAL IV SCH (08:13)
[2021-02-14] MEDS: APIXABAN 5 MG TABLET PO SCH ×2 (08:13→21:29)
[2021-02-14] MEDS: GABAPENTIN 300 MG CAPSULE PO SCH ×2 (08:13→21:29)
[2021-02-14] MEDS: DULoxetine 30 MG CAPSULE PO SCH ×2 (08:13→21:29)
[2021-02-14] MEDS ORDERED: METOPROLOL SUCCINATE 50 MG TAB.XL.24H PO SCH (09:00)
[2021-02-14] MEDS ORDERED: CALCITRIOL 0.25 MCG CAPSULE PO SCH (09:00)
--- NOTE | 2021-02-14 12:50 | XRay Report ---
CLINICAL INFORMATION: FOLLOW -UP OF SMALL BOWEL OBSTRUCTION COMPARISON: None. FINDINGS: Scattered air-fluid levels within nondilated stomach and small bowel appreciated. Findings most compatible with ileus. No free air. IMPRESSION: Mild ileus Interpreted and Authenticated by: All Lundberg 02/14/21
[2021-02-14] MEDS: 0.9 % SODIUM CHLORIDE 1,000 ML IV SCH (13:07)
[2021-02-14] MEDS ORDERED: HYDROmorphone 1 MG/ML SYRINGE IV PRN (13:10)
--- NOTE | 2021-02-14 13:11 | General Surgery Progress Note ---
SUBJECTIVE Subjective Patient information: Note initiated : 02/14/21 at 1:07 pm Service Date, if different from initiated Date: [] Patient: Dayanna Guo 60 y/o F admitted on 02/07/21 for Abdominal Pain. Chief Complaint: [] Principal diagnosis: Small bowel obstruction due to combination of chronic adhesions and intesti Interval history: Patient continues to do well. She is tolerating full liquids without difficulty. Her stoma continues to pull out soft stool and gas. She does not have abdominal distention. Abdominal x-rays shows a small amount of gas in the mid small bowel but otherwise her abdomen is decompressed. She denies nausea. She is urinating without difficulty. Plans have been made for discharge tomorrow will transfer home with home health. She will continue on TPN. All of her IV additives will be discontinued. Constitutional Vitals: Vital Signs Temp Pulse Resp BP Pulse Ox 97.4 F 81 15 157/87 93 02/14/21 08:10 02/14/21 08:10 02/14/21 08:10 02/14/21 08:10 02/14/21 10:49 Period Temp Pulse Resp BP Sys/Archuleta Pulse Ox Last 24 Hr 97.3 F-98.4 F 67-85 15-18 157-183/64-99 93-97 Intake and Output 02/13/21 02/14/21 02/14/21 21:59 05:59 13:59 Intake Total 1450.1525 650 590 Output Total 1825 700 550 Balance -374.8475 -50 40 Weight 227 lb 6.4 oz Intake & Output: Intake & Output 02/13/21 02/14/21 02/14/21 21:59 05:59 13:59 Intake Total 1450.1525 650 590 Output Total 1825 700 550 Balance -374.8475 -50 40 Weight 227 lb 6.4 oz Intake: IV 590.1525 50 50 Calcium Gluconate 30 Meq 540.1525 Magnesium Sulfate 32.48 Meq Potassium Chloride 40 Meq Infuvite Adult 10 ml Potassium Phosphate 60 Meq Sodium Chloride 80 Meq In Clinimix 5%- 20% Solution 2,000 ml @ 85 mls/ hr IV Q24H MALENA Rx#:[id number] Zosyn 3.375 gm In Dextrose 5% 50 50 50 in Water 50 ml @ 100 mls/hr IV Q6H MALENA Rx#:[id number] Oral 860 600 540 Output: Void Amount 1675 700 550 Stool 150 Other: Meal Lunch Percent of Meal Consumed 75% Feeding Ability Assist with Tray Set Up Urine Appearance Clear Clear Clear Urine Color Pale Pale Bright Yellow Urine Odor Normal Normal # Voids 2 Head Head exam: Present atraumatic, normal inspection and normocephalic Eye Eye exam: Present EOMI and normal appearance Pupils: Present PERRL ENT ENT exam: Present mucous membranes dry Neck Neck exam: Present full ROM and normal inspection; Absent lymphadenopathy and thyromegaly Respiratory Respiratory exam: Present normal respiratory exam and CTAB; Absent rales, rhonchi and wheezes Cardiovascular Cardiovascular exam: Present RRR, +S1, +S2 and tachycardia; Absent JVD GI/Abdominal GI/Abdominal exam: Present hyperactive bowel sounds; Absent distended, guarding, mass and tenderness Additional comments: Patient abdomen is soft and nondistended. She does not have any tenderness and there is no distention. Her stoma is functioning normally Extremities Exam Extremities exam: Present full ROM and neurovascular intact Additional comments: Mild tenderness in the anterior thigh on the right Neurological Exam Neurological exam: Present normal gait and oriented X3; Absent motor sensory d eficit Psychiatric Psychiatric exam: Present agitated, anxious and depressed Additional comments: Auditory hallucinations have resolved Skin Skin exam: Absent erythema, petechiae and rash A/P Assessment and plan (1) 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: Status: Acute (2) Myasthenia gravis: Status: Chronic Comment: Prednisone dependent at 20 mg daily. In association with thyoma ~20 yrs [employer] Cholinesterase inhibitor IM and/or PO (3) Polyglandular autoimmune syndrome: Status: Chronic Comment: I see no dental or nail dystrophy to suggest Type 1 polyglandular failure which is the only type associated with HYPOPARATHYROIDISM and no autoimmune adrenalitis. I have not read that MG is a feature and it's not clear that her thyroid disease is autoimmune in nature. So I'm skeptical of this Dx (4) Hypertension: Status: Chronic Qualifiers: Hypertension type: essential hypertension Qualified Code(s): I10 - Essential (primary) hypertension (5) Chronic use of steroids: Status: Chronic Comment: for myasthenia gravis; 10+ years, she started using steroids in 2002. (6) Diabetes mellitus type 2, uncontrolled: Status: Chronic Qualifiers: Coma presence: unspecified whether coma present (7) Chronic intestinal pseudo-obstruction: Status: Chronic Comment: If no mechanical obstruction, patient says cholinesterase inhibitors usually works Linzess is another possibility Octreotide has helped in children Narrative A/P Narrative: Continue TPN Discontinue all other IV allergies Restart all home medications Plan for discharge home with home health nurse PT and OT tomorrow Time Spent With Patient Time: Total time spent is greater than 50% in coordination of care (as documented) at patient's floor/unit and/or counseling patient:
[2021-02-14] MEDS ORDERED: MAG HYDROX/AL HYDROX/SIMETH 30 ML ORAL.SUSP PO PRN (13:12)
[2021-02-14] MEDS ORDERED: MAGNESIUM HYDROXIDE 30 ML ORAL.SUSP PO PRN (13:12)
[2021-02-14] MEDS ORDERED: PROMETHAZINE 25 MG TABLET PO PRN ×2 (13:12→13:21)
[2021-02-14] MEDS ORDERED: ACETAMINOPHEN 500 MG TABLET PO PRN (13:12)
[2021-02-14] MEDS ORDERED: ONDANSETRON 4 MG ODT TABLET SL PRN (13:23)
[2021-02-14] MEDS ORDERED: SIMETHICONE 80 MG TAB.CHEW PO PRN (13:23)
[2021-02-14] MEDS ORDERED: MAGNESIUM SULFATE IV SCH (14:00)
[2021-02-14] MEDS ORDERED: MVI IV SCH (14:00)
[2021-02-14] MEDS ORDERED: POTASSIUM CHLORIDE IV SCH (14:00)
[2021-02-14] MEDS ORDERED: CALCIUM GLUCONATE IV SCH (14:00)
[2021-02-14] MEDS ORDERED: [UNRECOGNIZED DRUG - OTHER] IV SCH (14:00)
[2021-02-14] MEDS: PANTOPRAZOLE 40 MG TABLET PO SCH (17:30)
[2021-02-14] MEDS: metFORMIN 500 MG TABLET PO SCH (17:30)
[2021-02-14] MEDS: MAGNESIUM OXIDE 400 MG TABLET PO SCH (21:29)
[2021-02-15] MEDS: PYRIDOSTIGMINE BROMIDE 10 MG/2 ML AMPUL IM SCH ×2 (04:17→08:31)
[2021-02-15] MEDS: 0.9 % SODIUM CHLORIDE 10 ML SYRINGE IV SCH ×2 (05:08→13:09)
[2021-02-15] MEDS: SUCRALFATE 1 GM/10 ML ORAL.SUSP PO SCH ×2 (06:02→12:17)
[2021-02-15] MEDS: INSULIN LISPRO 1 UNIT/0.01 ML UNIT SQ SCH ×2 (06:09→12:19)
[2021-02-15] MEDS ORDERED: LEVOTHYROXINE 100 MCG TABLET PO SCH (07:30)
[2021-02-15 07:44] LABS: ALT/SGPT 66 U/L (<40); AST/SGOT 16 U/L (<32); Albumin 2.2 gm/dL (3.2-5.2); Albumin/Globulin Ratio 1.3 (1.0-2.3); Alkaline Phosphatase 71 U/L (39-117); Bilirubin,Direct < 0.2 mg/dL (0-0.3); Bilirubin,Total 0.2 mg/dL (0.1-1.0); Blood Urea Nitrogen 30 mg/dL (6-20); Calcium 8.2 mg/dL (8.6-10.4); Carbon Dioxide 27 mmol/L (22-30); Chloride 100 mmol/L (96-108); Globulin 1.7 gm/dL (2.2-3.7); Glomerular Filtration Rate 100; Glucose 228 mg/dL (70-105); Lactate Dehydrogenase 395 U/L (135-225); Phosphorous 3.7 mg/dL (2.5-4.5); Triglycerides 371 mg/dL (<150); Uric Acid 1.2 mg/dL (2.5-8.0)
[2021-02-15] MEDS ORDERED: predniSONE 20 MG TABLET PO SCH (08:00)
[2021-02-15] MEDS: metFORMIN 500 MG TABLET PO SCH (08:11)
[2021-02-15] MEDS: PANTOPRAZOLE 40 MG TABLET PO SCH (08:11)
[2021-02-15] MEDS: DULoxetine 30 MG CAPSULE PO SCH (08:12)
[2021-02-15] MEDS: METOPROLOL SUCCINATE 50 MG TAB.XL.24H PO SCH (08:12)
[2021-02-15] MEDS: APIXABAN 5 MG TABLET PO SCH (08:12)
[2021-02-15] MEDS: MAGNESIUM OXIDE 400 MG TABLET PO SCH (08:13)
[2021-02-15] MEDS: ENOXAPARIN 40 MG/0.4 ML SYRINGE SQ SCH (08:13)
[2021-02-15] MEDS: GABAPENTIN 300 MG CAPSULE PO SCH (08:13)
[2021-02-15] MEDS: traMADol 50 MG TABLET PO PRN ×2 (08:16→13:13)
--- NOTE | 2021-02-15 12:15 | Discharge Summary ---
Discharge Provider Provider Patient information: Note initiated : 02/15/21 at 12:04 pm Service Date, if different from initiated Date: [] Patient: Dayanna Guo 60 y/o F admitted on 02/07/21 for Abdominal Pain. Chief Complaint: [] Date of admission: 02/07/21 20:44 Discharge date: 02/15/21 Primary care physician: Douglas Haque Admitting clinician: Bertha Currie Attending physician on admission: Bertha Currie Consults: 02/07/21 19:29 Consult to Physician [CONS] Stat Comment: Consulting Provider: Bertha Currie Reason For Exam: Physician to Consult Attending physician on discharge: Bertha Currie Discharging clinician: Bertha Currie COURSE Hospital Course Hospital course: 60-year-old female who is readmitted after a 9-day stay for partial bowel obstruction. After getting home the patient had progressive distention of her abdomen with decreased output. This was followed by nausea and vomiting. She was seen in the emergency room where she was noted to have massive dilation of her stomach duodenum jejunum and ileum extending to her ileostomy. She still has a small amount of gas and liquid stool in her ileostomy appliance. She was having severe crampy abdominal pain. Patient was admitted and started on nasogastric decompression. She was rapidly decompressed and was since restarted on her maintenance Regonol. She responded to that and had good output through her stoma. She had a small bowel follow-through with Gastrografin which showed complete transit through the small bowel into hours. All of the contrast cleared from her bowel in less than 24hours. She has been started on full liquid diet and has been continued on TPN. The patient is stable at this time and can take in full liquid diet and pured foods without high residue. Plans have been made for her to be discharged home with home health, physical therapy, Occupational Therapy, TPN. 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 Hypertension Diabetes mellitus type 2 Pneumatosis intestinalis Reason for admission: Recurrent small bowel obstruction Procedures: None Pertinent studies/significant findings: CT of abdomen and pelvis with IV contrast Gastrografin small bowel follow-through Complications: None Time Spent with Patient Time attestation: Total time spent providing and/or coordinating discharge services: Physical Examination Vital Signs Vital signs: Temp Pulse Resp BP Pulse Ox 98.1 F 92 H 18 125/70 99 02/15/21 08:00 02/15/21 08:00 02/15/21 08:00 02/15/21 08:00 02/15/21 08:15 General physical appearance General physical exam: well developed, moderate distress, moderate pain, chronically ill and obese Eyes Eye exam: PERRL and normal ocular movement ENT ENT exam: normal mucosa and no hearing loss Neck Neck exam: no masses, no bruits, trachea midline, no lymphadenopathy and no venous distension Cardiovascular Cardiovascular exam IM: Present normal rate and rhythm, +S1, +S2 and tachycardia (Heart rate 130s) Respiratory Respiratory exam: normal expansion, normal respiratory effort and clear to perc ussion Abdomen Abdomen: Present soft, non tender, bowel sounds and surgical scars (Healed abdominal surgical scars); Absent guarding Integumentary Integumentary: Present no rash, no growths and no abnormal pigmentation Neurologic Neurologic: Present normal coordination and normal sensation Musculoskeletal Musculoskeletal: Present normal gait, normal posture and other Psychiatric Psychiatric: Present oriented to time, oriented to person, oriented to place, speech is normal and memory intact Discharge Plan Patient/Caregiver Discharge Instructions Activity: ambulate only with your walker and increase activity as tolerated Diet: Consistent Carbohydrate and Full Liquid Prescriptions: Continued pyridostigmine bromide 5 mg/mL solution 10 mg IM Q6H Qty: 240 RF: 5 (DME) filter needles 19 x 1 1/2" 19 x 1 1/2 " needle See Rx Instructions .ROUTE .MEDSUPPLY Qty: 100 RF: 1 promethazine 25 mg tablet 25 mg PO Q6HP PRN (Reason: Nausea) Qty: 60 RF: 3 insulin glargine 1 UNIT/0.01 ML unit 10 unit SQ BID RF: 0 promethazine 25 MG suppository 25 mg AK Q6HP PRN (Reason: nausea vomitting) RF: 0 ondansetron 4 MG tablet 4 mg SL Q4HP PRN (Reason: Nausea) RF: 0 metformin 500 MG tablet 500 mg PO BIDAC RF: 0 prednisone 20 MG tablet 20 mg PO QAMCC RF: 0 Accu-Chek 1 EACH strip 1 each FS ACHS RF: 0 metoprolol succinate 50 mg Capsule,Sprinkle,Er 24hr 50 mg PO DAILY RF: 0 calcitriol 0.25 mcg Capsule 0.25 mcg PO TuThSa@0900 Qty: 30 RF: 3 Eliquis 5 mg Tablet 5 mg PO BID 150 Days Qty: 60 RF: 6 octreotide acetate 100 mcg/mL Solution 100 mcg subcut TID Qty: 25 RF: 4 levothyroxine 100 mcg Tablet 200 mcg PO QAMAC Qty: 30 RF: 3 cyclobenzaprine 10 mg Tablet 10 mg PO BID PRN (Reason: Muscle Pain) RF: 0 gabapentin 300 mg Tablet 300 mg PO BID RF: 0 acetaminophen 500 mg Tablet 1,000 mg PO Q6H PRN (Reason: Fever) RF: 0 magnesium hydroxide [Milk of Magnesia] 400 mg/5 mL Suspension 400 mg PO QDAY PRN (Reason: Constipation) RF: 0 promethazine 50 mg Tablet 50 mg PO DAILY PRN (Reason: Nausea And Vomiting) RF: 0 bisacodyl [Dulcolax (bisacodyl)] 10 mg Suppository 10 mg AK QDAY PRN (Reason: Constipation) RF: 0 Fleet Enema 19-7 gram/118 mL Enema 118 ml AK DAILYP PRN (Reason: Constipation) RF: 0 alum-mag hydroxide-simeth [Maalox Maximum Strength] 400-400-40 mg/5 mL Suspension 30 ml PO DAILYP PRN (Reason: Nausea) RF: 0 simethicone 80 mg Tablet 80 mg PO QDAY PRN (Reason: Nausea) RF: 0 duloxetine 30 mg Capsule, Delayed Rel Sprinkle 30 mg PO BID RF: 0 magnesium oxide 400 mg magnesium Tablet 400 mg PO BID RF: 0 Glucagon (HCl) Emergency Kit 1 mg Recon Soln 1 mg IM Q15M PRN (Reason: Hypoglycemia) RF: 0 Other Ambulatory Orders: Complete Blood Count (Routine) Timeframe: 1 Week Facility: [facility] - Location: Laboratory Ordered By: Bertha Currie Inpatient Panel (Routine) Timeframe: 1 Week Facility: [facility] - Location: Laboratory Ordered By: Bertha Currie Follow Up Plan Follow up with: Douglas Haque MD [Primary Care Provider] - Patient Disposition: Home, Self-Care Care Plan Goals: Physical therapy and Occupational Therapy Primary care provider on an as-needed basis Plan of Treatment: Daily continuous TPN therapy Prognosis: Good Rehab Potential: Good I certify that the patient requires SNF services: No Overall status at discharge: patient is progressing back to baseline Discharge Orders: Discharge Order (Routine); Ordered 02/15/21 Ordered By: Bertha Currie Pending Pending Pending: Resuscitation Status Full Code Diet Full Liquid Diet Start SatFebruary 13 145 Acetaminophen (Acetaminophen 500 Mg Tablet) 1,000 mg PO Q6HP PRN; Protocol PRN Reason: Fever Last Admin: 02/15/21 04:21 Dose: 1,000 mg Documented by: LILY Apixaban (Apixaban 5 Mg Tablet) 5 mg PO BID [facility] Last Admin: 02/15/21 08:12 Dose: 5 mg Documented by: Admin: 02/14/21 21:29 Dose: 5 mg Documented by: Admin: 02/14/21 08:13 Dose: 5 mg Documented by: Admin: 02/13/21 20:10 Dose: 5 mg Documented by: DIANE Calcitriol (Calcitriol 0.25 Mcg Capsule) 0.25 mcg PO TuThSa@0900 [facility] Last Admin: 02/14/21 08:13 Dose: 0.25 mcg Documented by: LISANDRA Cyclobenzaprine HCl (Cyclobenzaprine 10 Mg Tablet) 10 mg PO TIDP PRN PRN Reason: Muscle Spasm Last Admin: 02/14/21 05:55 Dose: 10 mg Documented by: Admin: 02/13/21 22:25 Dose: 10 mg Documented by: DIANE Diagnostic Test (Pha) (Accu-Chek 1 Each Strip) 1 each FS Q6 MALENA; Protocol Last Admin: 02/15/21 06:04 Dose: 1 each Documented by: Admin: 02/14/21 23:22 Dose: 1 each Documented by: Admin: 02/14/21 17:32 Dose: 1 each Documented by: Admin: 02/14/21 13:25 Dose: 1 each Documented by: Admin: 02/14/21 05:46 Dose: 1 each Documented by: Admin: 02/14/21 00:27 Dose: 1 each Documented by: Admin: 02/13/21 17:41 Dose: 1 each Documented by: Admin: 02/13/21 12:01 Dose: 1 each Documented by: Admin: 02/13/21 06:06 Dose: 1 each Documented by: ANNE-MARIE Admin: 02/12/21 23:39 Dose: 1 each Documented by: ANNE-MARIE Admin: 02/12/21 21:09 Dose: 1 each Documented by: ANNE-MARIE Admin: 02/12/21 19:29 Dose: 1 each Documented by: ANNE-MARIE Admin: 02/12/21 17:09 Dose: 1 each Documented by: Admin: 02/12/21 11:40 Dose: 1 each Documented by: Admin: 02/12/21 05:09 Dose: 1 each Documented by: Admin: 02/11/21 23:16 Dose: 1 each Documented by: Admin: 02/11/21 17:26 Dose: 1 each Documented by: Admin: 02/11/21 11:27 Dose: 1 each Documented by: Admin: 02/11/21 05:08 Dose: 1 each Documented by: Admin: 02/10/21 23:47 Dose: 1 each Documented by: Admin: 02/10/21 17:31 Dose: 1 each Documented by: Admin: 02/10/21 11:47 Dose: 1 each Documented by: Admin: 02/10/21 05:09 Dose: 1 each Documented by: Admin: 02/10/21 00:38 Dose: 1 each Documented by: Admin: 02/09/21 17:41 Dose: 1 each Documented by: Admin: 02/09/21 11:50 Dose: 1 each Documented by: Admin: 02/09/21 05:47 Dose: 1 each Documented by: Admin: 02/08/21 23:49 Dose: 1 each Documented by: Admin: 02/08/21 17:41 Dose: 1 each Documented by: Admin: 02/08/21 11:50 Dose: 1 each Documented by: Admin: 02/08/21 06:00 Dose: 1 each Documented by: Admin: 02/08/21 04:02 Dose: 1 each Documented by: Admin: 02/08/21 00:06 Dose: 1 each Documented by: DIANE Duloxetine HCl (Duloxetine 30 Mg Capsule) 30 mg PO BID [facility] Last Admin: 02/15/21 08:12 Dose: 30 mg Documented by: Admin: 02/14/21 21:29 Dose: 30 mg Documented by: Admin: 02/14/21 08:13 Dose: 30 mg Documented by: Admin: 02/13/21 20:10 Dose: 30 mg Documented by: DIANE Enoxaparin Sodium (Enoxaparin 40 Mg/0.4 Ml Syringe) 40 mg SQ DAILY [facility] Last Admin: 02/15/21 08:13 Dose: 40 mg Documented by: Admin: 02/14/21 08:12 Dose: 40 mg Documented by: Admin: 02/13/21 08:58 Dose: 40 mg Documented by: Admin: 02/12/21 08:23 Dose: 40 mg Documented by: Admin: 02/11/21 08:58 Dose: 40 mg Documented by: Admin: 02/10/21 08:21 Dose: 40 mg Documented by: Cosigned by: SAM Admin: 02/09/21 08:50 Dose: 40 mg Documented by: Admin: 02/08/21 08:28 Dose: 40 mg Documented by: KEN Gabapentin (Gabapentin 300 Mg Capsule) 300 mg PO BID [facility] Last Admin: 02/15/21 08:13 Dose: 300 mg Documented by: Admin: 02/14/21 21:29 Dose: 300 mg Documented by: Admin: 02/14/21 08:13 Dose: 300 mg Documented by: Admin: 02/13/21 20:10 Dose: 300 mg Documented by: DIANE Calcium Gluconate 40 meq/Magnesium Sulfate 32.48 meq/Potassium Chloride 20 meq/Multivitamins/Minerals 10 ml/Potassium Phosphate 60 meq/Sodium Chloride 100 meq/ Amino Acids 2,152.6579 mls @ 85 mls/hr IV Q24H [facility] Last Admin: 02/14/21 13:45 Dose: 85 mls/hr Documented by: LISANDRA Insulin Human Lispro (Insulin Lispro 1 Unit/0.01 Ml Unit) 0 unit SQ Q6 [facility]; Protocol Last Admin: 02/15/21 06:09 Dose: 8 units Documented by: Admin: 02/14/21 23:29 Dose: 8 units Documented by: [email or web address] Admin: 02/14/21 17:49 Dose: 6 units Documented by: Admin: 02/14/21 13:37 Dose: 6 units Documented by: Admin: 02/14/21 05:57 Dose: 8 units Documented by: Admin: 02/14/21 00:32 Dose: 12 units Documented by: Admin: 02/13/21 17:50 Dose: 12 units Documented by: Admin: 02/13/21 12:08 Dose: 8 units Documented by: Admin: 02/13/21 06:20 Dose: 12 units Documented by: ANNE-MARIE Admin: 02/12/21 23:56 Dose: 10 units Documented by: ANNE-MARIE Admin: 02/12/21 17:15 Dose: 14 units Documented by: Admin: 02/12/21 11:39 Dose: 12 units Documented by: Admin: 02/12/21 05:18 Dose: 10 units Documented by: Admin: 02/11/21 23:16 Dose: 10 units Documented by: Admin: 02/11/21 17:27 Dose: 12 units Documented by: Admin: 02/11/21 11:31 Dose: 6 units Documented by: Admin: 02/11/21 05:07 Dose: 8 units Documented by: Admin: 02/10/21 23:47 Dose: 10 units Documented by: Admin: 02/10/21 17:34 Dose: 11 units Documented by: Admin: 02/10/21 11:58 Dose: 6 units Documented by: Admin: 02/10/21 05:17 Dose: 8 units Documented by: Admin: 02/10/21 00:08 Dose: 8 units Documented by: Admin: 02/09/21 17:44 Dose: 2 units Documented by: Admin: 02/09/21 11:53 Dose: 8 units Documented by: Admin: 02/09/21 05:51 Dose: 2 units Documented by: Admin: 02/09/21 00:20 Dose: 10 units Documented by: Admin: 02/08/21 17:48 Dose: 6 units Documented by: Admin: 02/08/21 11:51 Dose: Not Given Documented by: Admin: 02/08/21 06:06 Dose: Not Given Documented by: DIANE Levothyroxine S[facility] ([facility]ine 100 Mcg Tablet) [facility] Admin: 02/15/21 08:11 Dose: 200 mcg Documented by: VALERIA Magnesium Oxide (Magnesium Oxide 400 Mg Tablet) 400 mg PO BID [facility] Last Admin: 02/15/21 08:13 Dose: 400 mg Documented by: Admin: 02/14/21 21:29 Dose: 400 mg Documented by: LILY Metformin HCl (Metformin 500 Mg Tablet) 500 mg PO BIDAC [facility] Last Admin: 02/15/21 08:11 Dose: 500 mg Documented by: Admin: 02/14/21 17:30 Dose: 500 mg Documented by: LISANDRA Metoprolol Succinate (Metoprolol Succinate 50 Mg Tab.Xl.24h) 50 mg PO DAILY [facility] Last Admin: 02/15/21 08:12 Dose: 50 mg Documented by: Admin: 02/14/21 08:13 Dose: 50 mg Documented by: Admin: 02/13/21 12:43 Dose: 50 mg Documented by: LISANDRA Ondansetron HCl (Ondansetron 4 Mg/2 Ml Vial) 4 mg IV Q6HP PRN PRN Reason: Nausea And Vomiting Last Admin: 02/10/21 09:33 Dose: 4 mg Documented by: Admin: 02/09/21 17:39 Dose: 4 mg Documented by: KEN Pantoprazole Sodium (Pantoprazole 40 Mg Tablet) 40 mg PO BIDAC [facility] Last Admin: 02/15/21 08:11 Dose: 40 mg Documented by: Admin: 02/14/21 17:30 Dose: 40 mg Documented by: LISANDRA Prednisone (Prednisone 20 Mg Tablet) 20 mg PO [facility] Last Admin: 02/15/21 08:11 Dose: 20 mg Documented by: VALERIA Pyridostigmine [place] (Pyridostigmine [place] 10 Mg/2 Ml Ampul) 10 mg IM Q6H [facility] Last Admin: 02/15/21 08:31 Dose: 10 mg Documented by: Admin: 02/15/21 04:17 Dose: 10 mg Documented by: Admin: 02/14/21 21:29 Dose: 10 mg Documented by: Admin: 02/14/21 15:58 Dose: 10 mg Documented by: [facility] Admin: 02/14/21 08:12 Dose: 10 mg Documented by: [facility] Admin: 02/14/21 03:29 Dose: 10 mg Documented by: Admin: 02/13/21 22:25 Dose: 10 mg Documented by: Admin: 02/13/21 14:30 Dose: 10 mg Documented by: [facility] Admin: 02/13/21 08:58 Dose: 10 mg Documented by: [facility] Admin: 02/13/21 03:52 Dose: 10 mg Documented by: ELINORSLANETTE Admin: 02/12/21 21:37 Dose: 10 mg Documented by: ANNE-MARIE Admin: 02/12/21 14:26 Dose: 10 mg Documented by: Admin: 02/12/21 08:22 Dose: 10 mg Documented by: Admin: 02/12/21 02:35 Dose: 10 mg Documented by: Admin: 02/11/21 20:15 Dose: 10 mg Documented by: Admin: 02/11/21 14:38 Dose: 10 mg Documented by: SAM Sodium Chloride (0.9 % Sodium Chloride 10 Ml Syringe) 10 ml IV Q8 [facility] Admin: 02/15/21 05:08 Dose: Not Given Documented by: Admin: 02/14/21 21:31 Dose: Not Given Documented by: Admin: 02/14/21 13:25 Dose: Not Given Documented by: Admin: 02/14/21 05:57 Dose: 10 ml Documented by: Admin: 02/13/21 20:11 Dose: 10 ml Documented by: Admin: 02/13/21 14:08 Dose: Not Given Documented by: [facility] Admin: 02/13/21 06:06 Dose: Not Given Documented by: ANNE-MARIE Admin: 02/12/21 21:39 Dose: Not Given Documented by: ELINORSLANETTE Admin: 02/12/21 14:15 Dose: Not Given Documented by: Admin: 02/12/21 05:19 Dose: Not Given Documented by: Admin: 02/11/21 20:21 Dose: Not Given Documented by: Admin: 02/11/21 13:53 Dose: Not Given Documented by: Admin: 02/11/21 05:09 Dose: Not Given Documented by: Admin: 02/10/21 20:27 Dose: Not Given Documented by: Admin: 02/10/21 15:17 Dose: Not Given Documented by: Admin: 02/10/21 05:18 Dose: 10 ml Documented by: Admin: 02/09/21 20:35 Dose: 10 ml Documented by: Admin: 02/09/21 14:11 Dose: 10 ml Documented by: Admin: 02/09/21 05:47 Dose: 10 ml Documented by: Admin: 02/08/21 21:41 Dose: 10 ml Documented by: Admin: 02/08/21 13:47 Dose: Not Given Documented by: Admin: 02/08/21 06:02 Dose: Not Given Documented by: Admin: 02/07/21 21:03 Dose: Not Given Documented by: DIANE Sucralfate (Sucralfate 1 Gm/10 Ml Oral.Susp) 1 gm PO Q6 [facility] Admin: 02/15/21 06:02 Dose: 1 gm Documented by: Admin: 02/14/21 23:29 Dose: 1 gm Documented by: Admin: 02/14/21 17:30 Dose: 1 gm Documented by: [facility] Admin: 02/14/21 13:25 Dose: 1 gm Documented by: Admin: 02/14/21 05:45 Dose: 1 gm Documented by: Admin: 02/14/21 00:24 Dose: 1 gm Documented by: Admin: 02/13/21 17:39 Dose: 1 gm Documented by: Admin: 02/13/21 12:08 Dose: 1 gm Documented by: Admin: 02/13/21 06:06 Dose: Not Given Documented by: ANNE-MARIE Admin: 02/12/21 23:43 Dose: Not Given Documented by: ANNE-MARIE Admin: 02/12/21 17:09 Dose: 1 gm Documented by: Admin: 02/12/21 11:39 Dose: 1 gm Documented by: Admin: 02/12/21 05:18 Dose: 1 gm Documented by: Admin: 02/11/21 23:16 Dose: 1 gm Documented by: Admin: 02/11/21 17:26 Dose: 1 gm Documented by: SAM Tramadol HCl (Tramadol 50 Mg Tablet) 100 mg PO Q4HP PRN; Protocol PRN Reason: Pain Last Admin: 02/15/21 08:16 Dose: 100 mg Documented by: [email or web address] Admin: 02/14/21 20:11 Dose: 100 mg Documented by: Admin: 02/14/21 08:14 Dose: 100 mg Documented by: Admin: 02/14/21 03:39 Dose: 100 mg Documented by: Admin: 02/14/21 00:21 Dose: 100 mg Documented by: Admin: 02/13/21 20:09 Dose: 100 mg Documented by: Admin: 02/13/21 15:59 Dose: 100 mg Documented by: Admin: 02/13/21 11:56 Dose: 100 mg Documented by: Admin: 02/13/21 07:24 Dose: 100 mg Documented by: Admin: 02/12/21 23:27 Dose: 100 mg Documented by: ANNE-MARIE Shift Summary 02/15/21 05:01 Shift Summary by Marcia Elliott Pt had a good night. Medicated twice for pain (anterior thigh muscle aches), Ultram 100 mg et Tylenol 1000 mg. Up on BSC 3 times. Ileostomy put out 125 ml. TPN continues et 85 ml/hr. Midnight Accu check 292 et covered with 8 units Humalog sq. P-a-cath site asymptomatic. Redness under her left breast-antifungal powder applied. Initialized on 02/15/21 05:01 - END OF NOTE
== END 2021-02-15 14:05 | DRG 389 ==
LOC: ED 17:57 → MEDSUR 20:44
PROVIDERS: ADMIT Family Medicine Adult Medicine; ATTEND Family Medicine Adult Medicine

== ENCOUNTER 2021-02-21 09:56 | Inpatient (IN) ==
[2021-02-21] MEDS ORDERED: 0.9 % SODIUM CHLORIDE 1,000 ML IV ONE ×2 (10:12→12:17)
[2021-02-21] MEDS ORDERED: ACETAMINOPHEN 325 MG TABLET PO ONE (10:28)
[2021-02-21] MEDS ORDERED: LACTATED RINGERS 1,000 ML IV ONE ×2 (10:28→12:33)
--- NOTE | 2021-02-21 10:41 | Emergency Department Note ---
HPI General Chief complaint: Blood Sugar Problem Stated complaint: DKA, cold/flu Time Seen by Provider: 02/21/21 10:14 Source: patient and EMS Mode of arrival: EMS Limitations: no limitations History of Present Illness HPI Narrative: Patient is a 60-year-old lady who arrives emergency department accompanied by her complaining of generalized weakness. The patient provides much of the history with some supplemental information from her and review of her chart. The patient says ever since returning home from the hospital a week ago she has been feeling very weak and rundown. She has been having severe urinary frequency and urgency and her has been having difficulty helping her get to the bathroom in time to urinate. She has had nausea and retching consistent with her chronic symptoms. She denies any associated abdominal pain. She has had good ostomy output. Patient's h as been caring for her at home but has been unable to obtain her Eliquis to treat her known pulmonary embolus. She also has not been taking her insulin for unclear reasons. Related Data Home Medications Medication Instructions Recorded Confirmed insulin glargine 10 unit SQ BID 09/30/19 02/07/21 ondansetron 4 mg SL Q4HP PRN 12/24/19 02/07/21 promethazine 25 mg TX Q6HP PRN 12/24/19 02/07/21 metformin 500 mg PO BIDAC 07/12/20 02/07/21 prednisone 20 mg PO [facility] 09/14/20 02/07/21 Accu-Chek 1 each FS ACHS 12/14/20 02/07/21 metoprolol succinate 50 mg PO DAILY 12/27/20 02/07/21 Fleet Enema 118 ml TX DAILYP PRN 01/27/21 02/07/21 acetaminophen 1,000 mg PO Q6H PRN 01/27/21 02/07/21 alum-mag hydroxide-simeth [Maalox 30 ml PO DAILYP PRN 01/27/21 02/07/21 Maximum Strength] bisacodyl [Dulcolax (bisacodyl)] 10 mg TX QDAY PRN 01/27/21 02/07/21 cyclobenzaprine 10 mg PO BID PRN 01/27/21 02/07/21 gabapentin 300 mg PO BID 01/27/21 02/07/21 magnesium hydroxide [Milk of 400 mg PO QDAY PRN 01/27/21 02/07/21 Magnesia] promethazine 50 mg PO DAILY PRN 01/27/21 02/07/21 simethicone 80 mg PO QDAY PRN 01/27/21 02/07/21 Glucagon (HCl) Emergency Kit 1 mg IM Q15M PRN 02/07/21 02/07/21 duloxetine 30 mg PO BID 02/07/21 02/07/21 magnesium oxide 400 mg PO BID 02/07/21 02/07/21 Previous Rx's Medication Instructions Recorded pyridostigmine bromide 5 mg/mL 10 mg IM Q6H #240 ml 01/04/20 injection solution filter needles 19 x 1 1/2" #100 each 10/19/20 promethazine 25 mg tablet 25 mg PO Q6HP PRN #60 tab 11/24/20 Eliquis 5 mg PO BID 150 Days #60 tab 01/09/21 calcitriol 0.25 mcg PO TuThSa@0900 #30 cap 01/09/21 levothyroxine 200 mcg PO QAMAC #30 tab 01/09/21 octreotide acetate 100 mcg SUBCUT TID #25 ml 01/09/21 Allergies Allergy/AdvReac Type Severity Reaction Status Date / Time Sulfa (Sulfonamide Allergy Severe Anaphylaxis Verified 02/21/21 10:06 Antibiotics) adhesive tape AdvReac Mild Blister Verified 02/21/21 10:06 metoclopramide [From Reglan] AdvReac Mild Anxiety Verified 02/21/21 10:06 steri strips AdvReac Mild Blister Uncoded 12/02/19 06:48 Review of Systems ROS ROS Narrative: Narrative: Constitutional: Reports fever and chills Cardiovascular: Denies chest pain Respiratory: Denies shortness of breath and cough Gastrointestinal: Denies abdominal pain PFSH Narrative Patient History Narrative: Narrative: Medical/Surgical/Family History All Active Problems (Updated 02/21/21 @ 17:44 by Darren Don DO) Anemia (Acute) Acute hyperglycemia (Acute) Acute dehydration (Acute) SBO (small bowel obstruction) (Acute) 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 (Acute) Myasthenia gravis (Chronic) Polyglandular autoimmune syndrome (Chronic) Sarcoidosis (Chronic) Hypothyroidism (Chronic) Hypertension (Chronic) Abnormal liver enzymes (Chronic) Chronic use of steroids (Chronic) Recurrent intestinal obstruction (Chronic) Obesity, Class II, BMI 35-39.9 (Chronic) Diabetes mellitus type 2, uncontrolled (Chronic) Chronic intestinal pseudo-obstruction (Chronic) Abdominal pain (Chronic) Chronic, continuous use of opioids (Chronic) LA (obstructive sleep apnea) (Chronic) Recurrent abdominal pain (Chronic) Low blood magnesium level (Chronic) Hyponatremia (Acute) Elevated LFTs (Acute) Small bowel obstruction (Acute) Dehydration (Acute) Primary chronic pseudo-obstruction of small intestine (Acute) UTI (urinary tract infection) (Acute) Hypocalcemia (Acute) Nausea & vomiting (Acute) Severe sepsis (Acute) 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 (Acute) Acute UTI (Acute) Hypercalcemia (Acute) COVID-19 (Acute) Acute kidney injury (Acute) Hypercalcemia (Acute) Hyponatremia (Acute) Elevated serum creatinine (Acute) Low back pain (Acute) Partial small bowel obstruction (Acute) Nausea and vomiting (Acute) Hypokalemia (Acute) Diabetes mellitus (Acute) Recurrent intestinal obstruction (Acute) Intractable abdominal pain (Acute) Intractable vomiting with nausea (Acute) Small bowel ischemia (Acute) Pneumatosis intestinalis (Acute) Right knee sprain (Acute) Generalized weakness (Acute) Hypercalcemia (Acute) Acute hyperkalemia (Acute) Leukocytosis (Acute) Acidosis, lactic (Acute) Fever of unknown origin (Acute) Metabolic acidosis with normal anion gap and failure of bicarbonate regeneration (Acute) Hyponatremia with decreased serum osmolality (Acute) Ileostomy status (Acute) Hypophosphatemia (Acute) Bacteremia (Acute) Hypoparathyroidism, unspecified (Acute) Medical History Abdominal pain Abdominal pain Abdominal wound dehiscence Abnormal liver enzymes Achalasia and cardiospasm Acute respiratory insufficiency Adverse reaction to drug Anaphylaxis Bowel obstruction 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 If no mechanical obstruction, patient says cholinesterase inhibitors usually works Linzess is another possibility Octreotide has helped in children Chronic use of steroids for myasthenia gravis; 10+ years, she started using steroids in 2002. Chronic, continuous use of opioids Need to minimize or stop as they are confusing the bowel issue Constipation due to neurogenic bowel Constipation due to pain medication therapy Dehydration Dehydration Diabetes mellitus type 2, uncontrolled Encounter for care related to Port-a-Cath Fecal impaction Foot sprain Hypercalcemia Hypertension Hypocalcemia Hyponatremia Hypothyroidism Over Rx, decrease to synthroid 200 ug per day and follow TSH and T4 Ileus Infiltrate of lung present on imaging of chest Intractable vomiting Lactic acid acidosis Low blood magnesium level Myasthenia gravis Prednisone dependent at 20 mg daily. In association with thyoma ~20 yrs [employer] Cholinesterase inhibitor IM and/or PO Nausea Nausea & vomiting Nausea & vomiting Nausea and vomiting Obesity, Class II, BMI 35-39.9 Chronic. Obstruction of descending colon LA (obstructive sleep apnea) Pancreatitis Parastomal hernia with obstruction, without gangrene Partial intestinal obstruction, unspecified as to cause Partial small bowel obstruction Pneumonia Polyglandular autoimmune syndrome I see no dental or nail dystrophy to suggest Type 1 polyglandular failure which is the only type associated with HYPOPARATHYROIDISM and no autoimmune adrenalitis. I have not read that MG is a feature and it's not clear that her thyroid disease is autoimmune in nature. So I'm skeptical of this Dx Primary chronic pseudo-obstruction of large intestine Pseudoobstruction of colon Pyelonephritis Recurrent abdominal pain Recurrent intestinal obstruction many recurrences; many surgical interventions Sarcoidosis Said to be present due to "granuloma's on hands" Check RADHA level On steroids forever for her MG Sepsis Sepsis associated hypotension Sepsis with acute hypoxic respiratory failure Severe sepsis Sigmoid volvulus Sinus tachycardia Sinus tachycardia Small bowel obstruction Small bowel obstruction Small bowel obstruction Small bowel obstruction Small bowel obstruction Small bowel obstruction Small bowel obstruction due to adhesions Small bowel obstruction due to postoperative adhesions Small bowel obstruction, partial Supraventricular tachycardia UTI (urinary tract infection) UTI (urinary tract infection) Volvulus of sigmoid colon Surgical History History of exploratory laparotomy 10/17/2017-with adhesiolysis History of exploratory laparotomy 12/01/2017-with adhesiolysis History of exploratory laparotomy 07/18/2018 History of exploratory laparotomy 08/10/2018-Exploratory laparotomy with small bowel adhesiolysis and incisional hernia repair with mesh graft History of exploratory laparotomy 11/30/2020-with total intraabdominal adhesiolysis S/P ileostomy Family History Father CAD (coronary artery disease) Mother CAD (coronary artery disease) Grandfather CVA (cerebral vascular accident) Grandmother CVA (cerebral vascular accident) Social History Smoking Status: Never smoker Alcohol Intake Frequency: does not drink Substance Use: does not use Exam Narrative Narrative: Gen -patient is drowsy but arousable to verbal stimuli and in no acute distress. HEENT -head is atraumatic. There is no conjunctival pallor or scleral icterus. Mucous membranes appear quite dry CV -S1-S2 tachycardic and regular. Peripheral pulses are palpable. Resp -breathing is nonlabored. Lungs are clear to auscultation bilaterally. There is no cyanosis. GI - Abdomen is soft and mildly tender to palpation diffusely. There is an ostomy present in the lower abdomen with a small amount of light brown stool present. There is no guarding or rebound tenderness. Derm -skin is warm and dry. MSK -there is diffuse ecchymosis to the right lower extremity that the patient and note is been present since a fall several days ago. There is no sig nificant underlying bony tenderness Psych -patient has appropriate affect. Neuro -patient answers questions appropriately with fluent speech. Patient moves all present extremities equally. General Limitations: no limitations Course Vital Signs Vital signs: Vital Signs Temperature 102.3 F H 02/21/21 09:58 Pulse Rate 144 H 02/21/21 09:58 Respiratory Rate 21 02/21/21 09:58 Blood Pressure 151/84 02/21/21 09:58 Pulse Oximetry (%) 95 02/21/21 09:58 Temperature 98.2 F 02/21/21 17:07 Pulse Rate 103 H 02/21/21 17:01 Respiratory Rate 22 02/21/21 17:07 Blood Pressure 126/61 02/21/21 17:01 Pulse Oximetry (%) 97 02/21/21 17:01 [facility] Narrative Medical decision making narrative: Patient presents with generalized weakness tachycardia and hyperglycemia. During my initial interview would came to light that the patient had not been taking her insulin or her anticoagulation at home as prescribed. Initial concern was for sepsis obtain blood cultures and a chest x-ray. Chest x-ray does not show any focal infiltrates. Patient's labs remarkable for hyperglycemia and hyponatremia. The hyponatremia does correct to 137 so I do not think it is clinically important at this time. CBC is remarkable for significant anemia is a component of pancytopenia. I think this is likely due to the patient's malnutrition. Her heart rate and symptoms greatly improved with IV fluids administered. Although she was febrile on arrival, she has no pyuria no adventitious lung sounds or abnormal findings on her chest x-ray and her nausea is at baseline. I do not think she has an intra- abdominal abscess or other infectious bacterial source for her fever and of uncertain of the cause. I discussed the test results and need for admission and blood transfusion with the patient and her and they are agreeable with this. Based on the patient's initial somewhat drowsy presentation I did ask the respiratory therapist to obtain negative inspiratory force on her and this was greater than -60. Given this I do not think she is experiencing a myasthenic crisis I initially discussed the patient's history examination diagnostic findings with Dr. Rahman. He was uncomfortable admitting the patient to this hospital as we do not have a group care worker available for endoscopy and he thinks that there may be a gastrointestinal source for the patient's anemia. At the patient's request and then spoke with Dr. Currie who knows her well. He believes the patient's anemia is more likely due to her malnutrition but notes that he will be available to perform endoscopy if needed. I relayed this information to Dr. Rahman who remains uncomfortable admitting the patient to his service but notes that he would be happy to see the patient in consultation if Dr. Currie admits the patient. I once again spoke with Dr. Currie and he accepts admission to his service and requested that I write brief holding orders. The patient is agreeable with the plan for admission and blood transfusion. Critical care time I provided at least 32 minutes of critical care time. This was separate from any separately billable procedures. The patient was given several doses of IV crystalloids as well as IV insulin to treat her hyperglycemia and resulting dehydration. She was given packed red blood cells to treat her significant symptomatic anemia. The patient was closely monitored for response to treatment and stability of vital signs throughout their emergency department stay. Lab Data Lab results reviewed: Yes I reviewed the patient's lab results. Result diagrams: 02/21/21 12:39 02/21/21 12:05 Labs: Lab Results 02/21/21 02/21/21 02/21/21 Range/Units 11:02 12:05 12:05 WBC (4.5-11.0) K/mcL RBC (4.00-5.20) M/mcL Hgb (12.0-15.0) g/dL Hct (36.0-48.0) % MCV (80.0-100.0) fL MCH (26.0-34.0) pg MCHC (31.0-36.0) g/dL RDW (11.5-14.5) % Plt Count (140-440) K/mcL MPV (7.4-10.4) fL Neut % (Auto) (38.0-78.0) % Lymph % (Auto) (15.0-49.0) % Mills % (Auto) (1.0-12.0) % Eos % (Auto) (0.0-7.0) % Baso % (Auto) (0.0-2.0) % Lymph # (Auto) (1.50-4.80) K/mcL [place] # (Auto) (0.10-0.90) K/mcL Eos # (Auto) (0.00-0.70) K/mcL Baso # (Auto) (0.00-0.20) K/mcL Absolute Neutrophils (1.80-8.00) K/mcL VBG Lactic Acid (0.5-2.0) mmol/L Sodium 128 L (133-145) mmol/L Potassium 4.5 (3.3-5.1) mmol/L Chloride 97 (96-108) mmol/L Carbon Dioxide 22 (22-30) mmol/L Anion Gap 9.0 (8.0-16.0) BUN 24 H (6-20) mg/dL Creatinine 0.7 (0.6-1.1) mg/dL GFR Calculation 95 Glucose 458 H* (70-105) mg/dL Calcium 8.2 L (8.6-10.4) mg/dL Iron < 5 L (37-145) ug/dL TIBC 138 L (228-428) ug/dl Unsat Iron Binding 133 (112-346) mcg/dL Transferrin % Sat 4 L (15-50) % Ferritin 345.1 H (13.0-150.0) ng/mL Total Bilirubin 0.6 (0.1-1.0) mg/dL AST 14 (<32) U/L ALT 19 (<40) U/L Alkaline Phosphatase 104 (39-117) U/L Total Protein 5.7 L (5.9-8.4) gm/dL Albumin 2.4 L (3.2-5.2) gm/dL Globulin 3.3 (2.2-3.7) gm/dL Albumin/Globulin Ratio 0.7 L (1.0-2.3) TSH 5.63 H (0.27-5.01) uIU/mL Urine Color Yellow Urine Appearance Hazy A (Clear) Urine pH 5.0 (5.0-9.0) Ur Specific [place] 1.023 (1.000-1.035) Urine Protein Negative (Negative) mg/dL Urine Glucose (UA) >=500 A (Negative) mg/dL Urine Ketones Negative (Negative) mg/dL Urine Occult Blood Negative (Negative) mg/dL Urine Nitrate Negative (Negative) Urine Bilirubin Negative (Negative) mg/dL Urine Urobilinogen Negative mg/dL Ur Leukocyte Esterase Negative (Negative) /ug Urine RBC 1 (0-3) /hpf Urine WBC < 1 (0-4) /hpf Ur Squamous Epith Cells 0 (0-4) /hpf Ur Transition Epith Cell < 1 (0-2) /hpf Amorphous Crystals Few A (None) /hpf Urine Bacteria None (0) /hpf Hyaline Casts 3 H (0-2) /lph Urine Mucus Few A (None) /hpf Ur Culture Indicated? No 02/21/21 02/21/21 Range/Units 12:39 12:39 WBC 3.9 L (4.5-11.0) K/mcL RBC 2.40 L (4.00-5.20) M/mcL Hgb 6.7 L* (12.0-15.0) g/dL Hct 21.6 L (36.0-48.0) % MCV 90.0 (80.0-100.0) fL MCH 27.9 (26.0-34.0) pg MCHC 31.0 (31.0-36.0) g/dL RDW 15.1 H (11.5-14.5) % Plt Count 117 L (140-440) K/mcL MPV 11.2 H (7.4-10.4) fL Neut % (Auto) 74.7 (38.0-78.0) % Lymph % (Auto) 11.5 L (15.0-49.0) % Mills % (Auto) 12.0 (1.0-12.0) % Eos % (Auto) 1.5 (0.0-7.0) % Baso % (Auto) 0.3 (0.0-2.0) % Lymph # (Auto) 0.45 L (1.50-4.80) K/mcL Mills # (Auto) 0.47 (0.10-0.90) K/mcL Eos # (Auto) 0.06 (0.00-0.70) K/mcL Baso # (Auto) 0.01 (0.00-0.20) K/mcL Absolute Neutrophils 2.93 (1.80-8.00) K/mcL VBG Lactic Acid 1.6 (0.5-2.0) mmol/L Sodium (133-145) mmol/L Potassium (3.3-5.1) mmol/L Chloride (96-108) mmol/L Carbon Dioxide (22-30) mmol/L Anion Gap (8.0-16.0) BUN (6-20) mg/dL Creatinine (0.6-1.1) mg/dL GFR Calculation Glucose (70-105) mg/dL Calcium (8.6-10.4) mg/dL Iron (37-145) ug/dL TIBC (228-428) ug/dl Unsat Iron Binding (112-346) mcg/dL Transferrin % Sat (15-50) % Ferritin (13.0-150.0) ng/mL Total Bilirubin (0.1-1.0) mg/dL AST (<32) U/L ALT (<40) U/L Alkaline Phosphatase (39-117) U/L Total Protein (5.9-8.4) gm/dL Albumin (3.2-5.2) gm/dL Globulin (2.2-3.7) gm/dL Albumin/Globulin Ratio (1.0-2.3) TSH (0.27-5.01) uIU/mL Urine Color Urine Appearance (Clear) Urine pH (5.0-9.0) Ur Specific [place] (1.000-1.035) Urine Protein (Negative) mg/dL Urine Glucose (UA) (Negative) mg/dL Urine Ketones (Negative) mg/dL Urine Occult Blood (Negative) mg/dL Urine Nitrate (Negative) Urine Bilirubin (Negative) mg/dL Urine Urobilinogen mg/dL Ur Leukocyte Esterase (Negative) /ug Urine RBC (0-3) /hpf Urine WBC (0-4) /hpf Ur Squamous Epith Cells (0-4) /hpf Ur Transition Epith Cell (0-2) /hpf Amorphous Crystals (None) /hpf Urine Bacteria (0) /hpf Hyaline Casts (0-2) /lph Urine Mucus (None) /hpf Ur Culture Indicated? ED POC Tests ED POC Tests: MARA - Influenza A Negative MARA - Influenza B Negative MARA - SARS Antigen Negative Discharge Plan Patient/Caregiver Discharge Instructions Pt seen by [facility] OR [facility]KER/PA only: No Clinical Impression: Anemia, Acute hyperglycemia, Acute dehydration Patient Disposition: Xfer As Inpt ([facility]) Condition: Fair Follow up with: Douglas Haque MD [Primary Care Provider] - Prescriptions: No Action pyridostigmine bromide 5 mg/mL solution 10 mg IM Q6H Qty: 240 RF: 5 (DME) filter needles 19 x 1 1/2" 19 x 1 1/2 " needle See Rx Instructions .ROUTE .MEDSUPPLY Qty: 100 RF: 1 promethazine 25 mg tablet 25 mg PO Q6HP PRN (Reason: Nausea) Qty: 60 RF: 3 insulin glargine 1 UNIT/0.01 ML unit 10 unit SQ BID RF: 0 promethazine 25 MG suppository 25 mg TX Q6HP PRN (Reason: nausea vomitting) RF: 0 ondansetron 4 MG tablet 4 mg SL Q4HP PRN (Reason: Nausea) RF: 0 metformin 500 MG tablet 500 mg PO BIDAC RF: 0 prednisone 20 MG tablet 20 mg PO QAMCC RF: 0 Accu-Chek 1 EACH strip 1 each FS ACHS RF: 0 metoprolol succinate 50 mg Capsule,Sprinkle,Er 24hr 50 mg PO DAILY RF: 0 calcitriol 0.25 mcg Capsule 0.25 mcg PO TuThSa@0900 Qty: 30 RF: 3 Eliquis 5 mg Tablet 5 mg PO BID 150 Days Qty: 60 RF: 6 octreotide acetate 100 mcg/mL Solution 100 mcg subcut TID Qty: 25 RF: 4 levothyroxine 100 mcg Tablet 200 mcg PO QAMAC Qty: 30 RF: 3 cyclobenzaprine 10 mg Tablet 10 mg PO BID PRN (Reason: Muscle Pain) RF: 0 gabapentin 300 mg Tablet 300 mg PO BID RF: 0 acetaminophen 500 mg Tablet 1,000 mg PO Q6H PRN (Reason: Fever) RF: 0 magnesium hydroxide [Milk of Magnesia] 400 mg/5 mL Suspension 400 mg PO QDAY PRN (Reason: Constipation) RF: 0 promethazine 50 mg Tablet 50 mg PO DAILY PRN (Reason: Nausea And Vomiting) RF: 0 bisacodyl [Dulcolax (bisacodyl)] 10 mg Suppository 10 mg TX QDAY PRN (Reason: Constipation) RF: 0 Fleet Enema 19-7 gram/118 mL Enema 118 ml TX DAILYP PRN (Reason: Constipation) RF: 0 alum-mag hydroxide-simeth [Maalox Maximum Strength] 400-400-40 mg/5 mL Suspension 30 ml PO DAILYP PRN (Reason: Nausea) RF: 0 simethicone 80 mg Tablet 80 mg PO QDAY PRN (Reason: Nausea) RF: 0 duloxetine 30 mg Capsule, Delayed Rel Sprinkle 30 mg PO BID RF: 0 magnesium oxide 400 mg magnesium Tablet 400 mg PO BID RF: 0 Glucagon (HCl) Emergency Kit 1 mg Recon Soln 1 mg IM Q15M PRN (Reason: Hypoglycemia) RF: 0
--- NOTE | 2021-02-21 11:24 | XRay Report ---
HISTORY: Sepsis, cold/flu, diabetes FINDINGS: There are thin linear opacities in the medial right lung base which probably represents scar. They were present on 05/07/20. There is also a calcified granuloma near the minor fissure. There is no evidence of pneumonia or pulmonary mass. No congestive heart failure or pleural effusion are present. The heart size is normal. There has been a prior sternotomy. A Port-A-Cath has been placed through the left subclavian vein into the right atrium of the heart. The stomach is not abnormally distended. IMPRESSION: Mild scarring at the right lung base and no acute abnormality Interpreted and Authenticated by: Zay Juarez 02/21/21
[2021-02-21 11:41] LABS: Appearance,Urine HAZY (Clear); Bilirubin,Urine Negative (Negative); Color,Urine YELLOW; Culture Indicated,Urine No; Glucose,Urine (UA) >=500 mg/dL (Negative); Ketones,Urine Negative (Negative); Leukocyte Esterase,Urine Negative /ug (Negative); Mucus,Urine FEW /hpf; Nitrate,Urine Negative (Negative); Protein,Urine Negative (Negative); Specific Gravity,Urine 1.023 (1.000-1.035); Urine Amorphous Crystals FEW /hpf; Urine Blood Negative (Negative); Urine Hyaline Cast 3 /lph (0-2); Urine RBC 1 /hpf (0-3); Urine Squamous Epithelial Cell 0 /hpf (0-4); Urine Transitional Epi Cells < 1 /hpf (0-2); Urine WBC < 1 /hpf (0-4); Urobilinogen,Urine Negative
[2021-02-21] MEDS ORDERED: INSULIN REGULAR, HUMAN 1 UNIT/0.01 ML UNIT IV ONE (12:33)
[2021-02-21 13:07] LABS: Thyroid Stimulating Hormone 5.63 uIU/mL (0.27-5.01)
[2021-02-21 13:19] LABS: ALT/SGPT 19 U/L (<40); AST/SGOT 14 U/L (<32); Albumin 2.4 gm/dL (3.2-5.2); Albumin/Globulin Ratio 0.7 (1.0-2.3); Alkaline Phosphatase 104 U/L (39-117); Bilirubin,Total 0.6 mg/dL (0.1-1.0); Blood Urea Nitrogen 24 mg/dL (6-20); Calcium 8.2 mg/dL (8.6-10.4); Carbon Dioxide 22 mmol/L (22-30); Chloride 97 mmol/L (96-108); Globulin 3.3 gm/dL (2.2-3.7); Glomerular Filtration Rate 95; Glucose 458 mg/dL (70-105)
[2021-02-21 13:59] LABS: Basophils # (Auto) 0.01 K/mcL (0.00-0.20); Basophils % (Auto) 0.3 % (0.0-2.0); Eosinophils # (Auto) 0.06 K/mcL (0.00-0.70); Eosinophils % (Auto) 1.5 % (0.0-7.0); Hematocrit 21.6 % (36.0-48.0); Hemoglobin 6.7 g/dL (12.0-15.0); Lymphocytes # (Auto) 0.45 K/mcL (1.50-4.80); Lymphocytes % (Auto) 11.5 % (15.0-49.0); Mean Platelet Volume 11.2 fL (7.4-10.4); Monocytes # (Auto) 0.47 K/mcL (0.10-0.90); Neutrophils % (Auto) 74.7 % (38.0-78.0); Platelet Count 117 K/mcL (140-440); Red Cell Distribution Width 15.1 % (11.5-14.5); WBC 3.9 K/mcL (4.5-11.0)
[2021-02-21] MEDS ORDERED: 0.9 % SODIUM CHLORIDE 250 ML IV SCH ×2 (14:30→18:45)
[2021-02-21] MEDS ORDERED: ONDANSETRON 4 MG/2 ML VIAL IV ONE (14:47)
[2021-02-21 16:24] LABS: Iron < 5 ug/dL (37-145); TIBC Calculation 138 ug/dl (228-428); Transferrin % Saturation 4 % (15-50)
[2021-02-21 16:31] LABS: Ferritin 345.1 ng/mL (13.0-150.0)
[2021-02-21] MEDS ORDERED: ONDANSETRON 4 MG/2 ML VIAL IV PRN (16:56)
[2021-02-21] MEDS ORDERED: DEXTROSE 50% 50 ML VIAL IV PRN (17:01)
--- NOTE | 2021-02-21 18:57 | General Surg History&Physical ---
HPI History of Present Illness Patient information: Note initiated : 02/21/21 at 6:51 pm Service Date, if different from initiated Date: [] Patient: Dayanna Guo a 60 y/o F admitted on 02/21/21 for DKA, Cold/Flu. Chief Complaint: [] Chief complaint: Generalized weakness, urinary frequency and polydipsia, recurrent nausea vo History of present illness: Ms. Guo is a 60 year old F admitted from the emergency room because of increased weakness with severe urinary frequency and urgency with incontinence. She also had nausea and vomiting. She has not been taking her medications as ordered. She has not had insulin since discharge even though she was discharged on TPN. She also has evidence of dehydration with acute kidney injury. There is no evidence of intestinal blockage. She is admitted primarily for control of her blood sugars, rehydration and treatment of possible infection. Constitutional Constitutional: Present anorexia, fatigue, fever(s), lethargy, malaise, weakness and weight loss EENT Eyes: Absent change in vision, diplopia and pain Ears: Absent decreased hearing and tinnitus Nose, mouth and throat: Absent dysphagia, hoarseness, sinus pressure, sore throat and throat swelling Cardiovascular Cardiovascular: Present palpatations and rapid heart rate; Absent chest pain, dyspnea on exertion, lightheadedness, orthopnea and pedal edema Respiratory Respiratory: Absent cough, dyspnea, wheezing, snoring, chest congestion and pain with cough Genitourinary Genitourinary: Present dysuria, urinary frequency, urinary hesitancy, urinary incontinence and urinary urgency Musculoskeletal Musculoskeletal: Present abnormal gait, arthralgias, muscle cramps, muscle weakness, myalgias and numbness Integumentary Integumentary: Absent pruritus and swelling Neurological Neurological: Present abnormal gait, dizziness, headache(s) and weakness; Absent confusion, convulsions, focal weakness, sensory deficit, syncope and tingling Psychiatric Psychiatric: Present depression and memory loss Endocrine Endocrine: Present fatigue, palpitations, polydipsia and polyuria Hematologic/Lymphatic Hematologic/Lymphatic: Present easy bleeding and easy bruising; Absent lymphadenopathy Allergic/Immunologic Allergic/Immunologic: Absent tongue swelling, throat swelling, uticaria, wheezing and lip swelling PFSH PFSH All Active Problems (Updated 02/21/21 @ 18:54 by Bertha Currie MD) Chronic iron deficiency anemia (Acute) Anemia (Acute) Acute hyperglycemia (Acute) Acute dehydration (Acute) SBO (small bowel obstruction) (Acute) 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 (Acute) Myasthenia gravis (Chronic) Polyglandular autoimmune syndrome (Chronic) Sarcoidosis (Chronic) Hypothyroidism (Chronic) Hypertension (Chronic) Abnormal liver enzymes (Chronic) Chronic use of steroids (Chronic) Recurrent intestinal obstruction (Chronic) Obesity, Class II, BMI 35-39.9 (Chronic) Diabetes mellitus type 2, uncontrolled (Chronic) Chronic intestinal pseudo-obstruction (Chronic) Abdominal pain (Chronic) Chronic, continuous use of opioids (Chronic) LA (obstructive sleep apnea) (Chronic) Recurrent abdominal pain (Chronic) Low blood magnesium level (Chronic) Hyponatremia (Acute) Elevated LFTs (Acute) Small bowel obstruction (Acute) Dehydration (Acute) Primary chronic pseudo-obstruction of small intestine (Acute) UTI (urinary tract infection) (Acute) Hypocalcemia (Acute) Nausea & vomiting (Acute) Severe sepsis (Acute) 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 (Acute) Acute UTI (Acute) Hypercalcemia (Acute) COVID-19 (Acute) Acute kidney injury (Acute) Hypercalcemia (Acute) Hyponatremia (Acute) Elevated serum creatinine (Acute) Low back pain (Acute) Partial small bowel obstruction (Acute) Nausea and vomiting (Acute) Hypokalemia (Acute) Diabetes mellitus (Acute) Recurrent intestinal obstruction (Acute) Intractable abdominal pain (Acute) Intractable vomiting with nausea (Acute) Small bowel ischemia (Acute) Pneumatosis intestinalis (Acute) Right knee sprain (Acute) Generalized weakness (Acute) Hypercalcemia (Acute) Acute hyperkalemia (Acute) Leukocytosis (Acute) Acidosis, lactic (Acute) Fever of unknown origin (Acute) Metabolic acidosis with normal anion gap and failure of bicarbonate regeneration (Acute) Hyponatremia with decreased serum osmolality (Acute) Ileostomy status (Acute) Hypophosphatemia (Acute) Bacteremia (Acute) Hypoparathyroidism, unspecified (Acute) Medical History Abdominal pain Abdominal pain Abdominal wound dehiscence Abnormal liver enzymes Achalasia and cardiospasm Acute respiratory insufficiency Adverse reaction to drug Anaphylaxis Bowel obstruction 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 If no mechanical obstruction, patient says cholinesterase inhibitors usually works Linzess is another possibility Octreotide has helped in children Chronic use of steroids for myasthenia gravis; 10+ years, she started using steroids in 2002. Chronic, continuous use of opioids Need to minimize or stop as they are confusing the bowel issue Constipation due to neurogenic bowel Constipation due to pain medication therapy Dehydration Dehydration Diabetes mellitus type 2, uncontrolled Encounter for care related to Port-a-Cath Fecal impaction Foot sprain Hypercalcemia Hypertension Hypocalcemia Hyponatremia Hypothyroidism Over Rx, decrease to synthroid 200 ug per day and follow TSH and T4 Ileus Infiltrate of lung present on imaging of chest Intractable vomiting Lactic acid acidosis Low blood magnesium level Myasthenia gravis Prednisone dependent at 20 mg daily. In association with thyoma ~20 yrs [employer] Cholinesterase inhibitor IM and/or PO Nausea Nausea & vomiting Nausea & vomiting Nausea and vomiting Obesity, Class II, BMI 35-39.9 Chronic. Obstruction of descending colon LA (obstructive sleep apnea) Pancreatitis Parastomal hernia with obstruction, without gangrene Partial intestinal obstruction, unspecified as to cause Partial small bowel obstruction Pneumonia Polyglandular autoimmune syndrome I see no dental or nail dystrophy to suggest Type 1 polyglandular failure which is the only type associated with HYPOPARATHYROIDISM and no autoimmune adrenalitis. I have not read that MG is a feature and it's not clear that her thyroid disease is autoimmune in nature. So I'm skeptical of this Dx Primary chronic pseudo-obstruction of large intestine Pseudoobstruction of colon Pyelonephritis Recurrent abdominal pain Recurrent intestinal obstruction many recurrences; many surgical interventions Sarcoidosis Said to be present due to "granuloma's on hands" Check RADHA level On steroids forever for her MG Sepsis Sepsis associated hypotension Sepsis with acute hypoxic respiratory failure Severe sepsis Sigmoid volvulus Sinus tachycardia Sinus tachycardia Small bowel obstruction Small bowel obstruction Small bowel obstruction Small bowel obstruction Small bowel obstruction Small bowel obstruction Small bowel obstruction due to adhesions Small bowel obstruction due to postoperative adhesions Small bowel obstruction, partial Supraventricular tachycardia UTI (urinary tract infection) UTI (urinary tract infection) Volvulus of sigmoid colon Surgical History History of exploratory laparotomy 10/17/2017-with adhesiolysis History of exploratory laparotomy 12/01/2017-with adhesiolysis History of exploratory laparotomy 07/18/2018 History of exploratory laparotomy 08/10/2018-Exploratory laparotomy with small bowel adhesiolysis and incisional hernia repair with mesh graft History of exploratory laparotomy 11/30/2020-with total intraabdominal adhesiolysis S/P ileostomy Family History Father CAD (coronary artery disease) Mother CAD (coronary artery disease) Grandfather CVA (cerebral vascular accident) Grandmother CVA (cerebral vascular accident) Social History alcohol intake frequency: does not drink substance use type: does not use MEDS/ALLERGIES Home Medications and Allergies Home Medications Medication Instructions Recorded Confirmed Type insulin glargine 10 unit SQ BID 09/30/19 02/21/21 History ondansetron 4 mg SL Q4HP PRN 12/24/19 02/21/21 History promethazine 25 mg NV Q6HP PRN 12/24/19 02/21/21 History pyridostigmine bromide 5 mg/mL 10 mg IM Q6H #240 ml 01/04/20 02/21/21 Rx injection solution metformin 500 mg PO BIDAC 07/12/20 02/21/21 History prednisone 20 mg PO QAMCC 09/14/20 02/21/21 History filter needles 19 x 1 1/2" #100 each 10/19/20 02/21/21 Rx promethazine 25 mg tablet 25 mg PO Q6HP PRN #60 tab 11/24/20 02/21/21 Rx Accu-Chek 1 each FS ACHS 12/14/20 02/21/21 History metoprolol succinate 50 mg PO DAILY 12/27/20 02/21/21 History Eliquis 5 mg PO BID 150 Days #60 tab 01/09/21 02/21/21 Rx levothyroxine 200 mcg PO QAMAC #30 tab 01/09/21 02/21/21 Rx octreotide acetate 100 mcg SUBCUT TID #25 ml 01/09/21 02/21/21 Rx Fleet Enema 118 ml NV DAILYP PRN 01/27/21 02/21/21 History acetaminophen 1,000 mg PO Q6H PRN 01/27/21 02/21/21 History alum-mag hydroxide-simeth [Maalox 30 ml PO DAILYP PRN 01/27/21 02/21/21 History Maximum Strength] bisacodyl [Dulcolax (bisacodyl)] 10 mg NV QDAY PRN 01/27/21 02/21/21 History cyclobenzaprine 10 mg PO BID PRN 01/27/21 02/21/21 History gabapentin 300 mg PO BID 01/27/21 02/21/21 History magnesium hydroxide [Milk of 400 mg PO QDAY PRN 01/27/21 02/21/21 History Magnesia] promethazine 50 mg PO DAILY PRN 01/27/21 02/21/21 History simethicone 80 mg PO QDAY PRN 01/27/21 02/21/21 History Glucagon (HCl) Emergency Kit 1 mg IM Q15M PRN 02/07/21 02/21/21 History duloxetine 30 mg PO BID 02/07/21 02/21/21 History calcitriol 0.25 mcg PO TUTHSA 02/21/21 02/21/21 History magnesium 1,000 mg PO QDAY 02/21/21 02/21/21 History pyridostigmine bromide 5 mg/mL 10 mg IM ONCE #240 ml 03/02/21 Rx injection solution Allergies Allergy/AdvReac Type Severity Reaction Status Date / Time Sulfa (Sulfonamide Allergy Severe Anaphylaxis Verified 02/21/21 10:06 Antibiotics) adhesive tape AdvReac Mild Blister Verified 02/21/21 10:06 metoclopramide [From Reglan] AdvReac Mild Anxiety Verified 02/21/21 10:06 steri strips AdvReac Mild Blister Uncoded 12/02/19 06:48 Physical Examination Vital Signs Vital signs: Temp Pulse Resp BP Pulse Ox 98.2 F 103 H 22 126/61 97 02/21/21 17:07 02/21/21 17:01 02/21/21 17:07 02/21/21 17:01 02/21/21 17:01 General physical appearance General physical exam: moderate distress and moderate pain Eyes Eye exam: PERRL, normal ocular movement and pale ENT ENT exam: no hearing loss and no congestion Head Head exam IM: Present atraumatic, normal inspection and normocephalic Neck Neck exam: no masses, no bruits, trachea midline, no lymphadenopathy and no venous distension Cardiovascular Cardiovascular exam IM: Present RRR, +S1, +S2 and tachycardia; Absent JVD Respiratory Respiratory exam: normal expansion, normal respiratory effort and clear to auscultation Abdomen Abdomen: Present soft, non tender, bowel sounds (Normal active bowel sounds), surgical scars (Well-healed midline surgical scar) and distended Integumentary Integumentary: Present no rash, no growths and other (Fungal infection beneath breast and beneath panniculus) Neurologic Neurologic: Present normal coordination and normal sensation Musculoskeletal Musculoskeletal: Present other (Patient is bedridden) Psychiatric Psychiatric: Present oriented to time, oriented to person, oriented to place, speech is normal and memory intact Results Labs Result diagrams: 02/27/21 11:34 02/27/21 08:15 Labs: Abnormal lab results 02/21/21 02/21/21 02/21/21 Range/Units 11:02 12:05 12:05 WBC (4.5-11.0) K/mcL RBC (4.00-5.20) M/mcL Hgb (12.0-15.0) g/dL Hct (36.0-48.0) % RDW (11.5-14.5) % Plt Count (140-440) K/mcL MPV (7.4-10.4) fL Lymph % (Auto) (15.0-49.0) % Lymph # (Auto) (1.50-4.80) K/mcL Sodium 128 L (133-145) mmol/L BUN 24 H (6-20) mg/dL Glucose 458 H* (70-105) mg/dL Calcium 8.2 L (8.6-10.4) mg/dL Iron < 5 L (37-145) ug/dL TIBC 138 L (228-428) ug/dl Transferrin % Sat 4 L (15-50) % Ferritin 345.1 H (13.0-150.0) ng/mL Total Protein 5.7 L (5.9-8.4) gm/dL Albumin 2.4 L (3.2-5.2) gm/dL Albumin/Globulin Ratio 0.7 L (1.0-2.3) TSH 5.63 H (0.27-5.01) uIU/mL Urine Appearance Hazy A (Clear) Urine Glucose (UA) >=500 A (Negative) mg/dL Amorphous Crystals Few A (None) /hpf Hyaline Casts 3 H (0-2) /lph Urine Mucus Few A (None) /hpf 02/21/21 Range/Units 12:39 WBC 3.9 L (4.5-11.0) K/mcL RBC 2.40 L (4.00-5.20) M/mcL Hgb 6.7 L* (12.0-15.0) g/dL Hct 21.6 L (36.0-48.0) % RDW 15.1 H (11.5-14.5) % Plt Count 117 L (140-440) K/mcL MPV 11.2 H (7.4-10.4) fL Lymph % (Auto) 11.5 L (15.0-49.0) % Lymph # (Auto) 0.45 L (1.50-4.80) K/mcL Sodium (133-145) mmol/L BUN (6-20) mg/dL Glucose (70-105) mg/dL Calcium (8.6-10.4) mg/dL Iron (37-145) ug/dL TIBC (228-428) ug/dl Transferrin % Sat (15-50) % Ferritin (13.0-150.0) ng/mL Total Protein (5.9-8.4) gm/dL Albumin (3.2-5.2) gm/dL Albumin/Globulin Ratio (1.0-2.3) TSH (0.27-5.01) uIU/mL Urine Appearance (Clear) Urine Glucose (UA) (Negative) mg/dL Amorphous Crystals (None) /hpf Hyaline Casts (0-2) /lph Urine Mucus (None) /hpf Diabetes panel 02/21/21 Range/Units 12:05 Sodium 128 L (133-145) mmol/L Potassium 4.5 (3.3-5.1) mmol/L Chloride 97 (96-108) mmol/L Carbon Dioxide 22 (22-30) mmol/L BUN 24 H (6-20) mg/dL Creatinine 0.7 (0.6-1.1) mg/dL Glucose 458 H* (70-105) mg/dL Calcium 8.2 L (8.6-10.4) mg/dL AST 14 (<32) U/L ALT 19 (<40) U/L Alkaline Phosphatase 104 (39-117) U/L Total Protein 5.7 L (5.9-8.4) gm/dL Albumin 2.4 L (3.2-5.2) gm/dL Thyroid panel 02/21/21 Range/Units 12:05 TSH 5.63 H (0.27-5.01) uIU/mL Calcium panel 02/21/21 Range/Units 12:05 Calcium 8.2 L (8.6-10.4) mg/dL Albumin 2.4 L (3.2-5.2) gm/dL Pituitary panel 02/21/21 Range/Units 12:05 Sodium 128 L (133-145) mmol/L Potassium 4.5 (3.3-5.1) mmol/L Chloride 97 (96-108) mmol/L Carbon Dioxide 22 (22-30) mmol/L BUN 24 H (6-20) mg/dL Creatinine 0.7 (0.6-1.1) mg/dL Glucose 458 H* (70-105) mg/dL Calcium 8.2 L (8.6-10.4) mg/dL TSH 5.63 H (0.27-5.01) uIU/mL Adrenal panel 02/21/21 Range/Units 12:05 Sodium 128 L (133-145) mmol/L Potassium 4.5 (3.3-5.1) mmol/L Chloride 97 (96-108) mmol/L Carbon Dioxide 22 (22-30) mmol/L BUN 24 H (6-20) mg/dL Creatinine 0.7 (0.6-1.1) mg/dL Glucose 458 H* (70-105) mg/dL Calcium 8.2 L (8.6-10.4) mg/dL Total Bilirubin 0.6 (0.1-1.0) mg/dL AST 14 (<32) U/L ALT 19 (<40) U/L Alkaline Phosphatase 104 (39-117) U/L Total Protein 5.7 L (5.9-8.4) gm/dL Albumin 2.4 L (3.2-5.2) gm/dL All other labs normal. A/P Assessment and plan (1) Chronic iron deficiency anemia: Status: Acute (2) Polyglandular autoimmune syndrome: Status: Chronic Comment: I see no dental or nail dystrophy to suggest Type 1 polyglandular failure which is the only type associated with HYPOPARATHYROIDISM and no autoimmune adrenalitis. I have not read that MG is a feature and it's not clear that her thyroid disease is autoimmune in nature. So I'm skeptical of this Dx (3) Chronic use of steroids: Status: Chronic Comment: for myasthenia gravis; 10+ years, she started using steroids in 2002. 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 Comment: If no mechanical obstruction, patient says cholinesterase inhibitors usually works Linzess is another possibility Octreotide has helped in children (8) Chronic, continuous use of opioids: Status: Chronic Comment: Need to minimize or stop as they are confusing the bowel issue (9) LA (obstructive sleep apnea): Status: Chronic (10) Hyponatremia: Status: Acute Narrative A/P Narrative: TRANFUSE 4 UNITS OF PRBCS HYDRATION WITH NORMAL SALINE RESUME HOME MEDICATIONS COVER GLUCOSE WITH SLIDING SCALE RESTART TPN ONCE SERUM GLUCOSE LEVEL IS STABILIZED Time Spent With Patient Time: Total time spent is greater than 50% in coordination of care (as documented) at patient's floor/unit and/or counseling patient:
[2021-02-21] MEDS: INSULIN LISPRO 1 UNIT/0.01 ML UNIT SQ SCH (19:00)
[2021-02-21] MEDS: 0.9 % SODIUM CHLORIDE 1,000 ML IV SCH (19:00)
[2021-02-21] MEDS: oxyCODONE HCL 5 MG TABLET PO PRN (19:18)
[2021-02-21] MEDS: HYDROmorphone 0.5 MG/0.5 ML SYRINGE IV PRN (19:19)
[2021-02-21] MEDS: DOCUSATE SODIUM 100 MG CAPSULE PO SCH (22:54)
[2021-02-21] MEDS: SENNOSIDES 1 TABLET PO SCH (22:57)
[2021-02-22] MEDS: 0.9 % SODIUM CHLORIDE 10 ML SYRINGE IV SCH ×4 (00:03→21:12)
[2021-02-22] MEDS: HYDROmorphone 0.5 MG/0.5 ML SYRINGE IV PRN ×5 (00:03→15:08)
[2021-02-22] MEDS: INSULIN LISPRO 1 UNIT/0.01 ML UNIT SQ SCH ×4 (01:20→17:43)
[2021-02-22] MEDS: 0.9 % SODIUM CHLORIDE 1,000 ML IV SCH ×3 (03:30→19:00)
[2021-02-22] MEDS ORDERED: PROMETHAZINE 25 MG TABLET PO PRN (07:34)
[2021-02-22] MEDS ORDERED: SIMETHICONE 80 MG TAB.CHEW PO PRN (07:45)
[2021-02-22] MEDS ORDERED: TPN PER PHARMACY IV SCH (07:45)
[2021-02-22] MEDS ORDERED: ONDANSETRON 4 MG ODT TABLET SL PRN (07:46)
[2021-02-22] MEDS ORDERED: CALCIUM GLUCONATE IV SCH ×2 (08:00→10:00)
[2021-02-22] MEDS ORDERED: MAGNESIUM SULFATE IV SCH ×2 (08:00→10:00)
[2021-02-22] MEDS ORDERED: [UNRECOGNIZED DRUG - OTHER] IV SCH ×2 (08:00→10:00)
[2021-02-22] MEDS ORDERED: POTASSIUM CHLORIDE IV SCH ×2 (08:00→10:00)
[2021-02-22] MEDS ORDERED: MVI IV SCH ×2 (08:00→10:00)
[2021-02-22] MEDS: predniSONE 20 MG TABLET PO SCH (08:20)
[2021-02-22] MEDS: metFORMIN 500 MG TABLET PO SCH ×2 (08:23→17:35)
--- NOTE | 2021-02-22 09:13 | XRay Report ---
HISTORY: Follow-up ileus FINDINGS: The bowel gas pattern is nearly normal without evidence of obstruction. The largest segment of small bowel is in the midline and measures 4.5 cm. There are a few air-fluid levels. The stomach is decompressed. The caliber of the small intestine has diminished since the prior exam done on 02/14/21. No free intra-abdominal air is present. IMPRESSION: Resolved ileus Interpreted and Authenticated by: Zay Juarez 02/22/21
[2021-02-22] MEDS: MAGNESIUM OXIDE 400 MG TABLET PO SCH (09:19)
[2021-02-22] MEDS: INSULIN GLARGINE, HUMAN 1 UNIT/0.01 ML SQ SCH ×2 (09:19→21:08)
[2021-02-22] MEDS: PYRIDOSTIGMINE BROMIDE 10 MG/2 ML AMPUL IM SCH ×3 (09:19→21:12)
[2021-02-22] MEDS: GABAPENTIN 300 MG CAPSULE PO SCH ×2 (09:20→20:58)
[2021-02-22] MEDS: METOPROLOL SUCCINATE 50 MG TAB.XL.24H PO SCH (09:20)
[2021-02-22] MEDS: DOCUSATE SODIUM 100 MG CAPSULE PO SCH ×2 (09:20→20:58)
[2021-02-22] MEDS: APIXABAN 5 MG TABLET PO SCH ×2 (09:20→20:58)
[2021-02-22] MEDS: DULoxetine 30 MG CAPSULE PO SCH ×2 (09:20→20:58)
[2021-02-22] MEDS ORDERED: VANCOMYCIN PER PHARMACY IV SCH (10:08)
[2021-02-22 11:26] LABS: POC Blood Urea Nitrogen 9 mg/dL (6-20); POC CO2 20 mmol/L (22-30); POC Calcium, Ionized 0.95 mmEq/L (1.16-1.32); POC Chloride 101 mEq/L (96-108); POC Creatinine 0.4 mg/dL (0.6-1.2); POC Glucose, Random 203 mg/dL (70-105); POC Hematocrit 35 % (36-48); POC Sodium 133 mEq/L (133-145)
[2021-02-22 11:54] LABS: Basophils # (Auto) 0.01 K/mcL (0.00-0.20); Basophils % (Auto) 0.2 % (0.0-2.0); Eosinophils # (Auto) 0.11 K/mcL (0.00-0.70); Eosinophils % (Auto) 1.8 % (0.0-7.0); Hematocrit 35.1 % (36.0-48.0); Hemoglobin 11.7 g/dL (12.0-15.0); Lymphocytes # (Auto) 0.61 K/mcL (1.50-4.80); Lymphocytes % (Auto) 10.1 % (15.0-49.0); Mean Cell Volume 87.1 fL (80.0-100.0); Mean Corpuscular HGB Conc 33.3 g/dL (31.0-36.0); Mean Platelet Volume 10.6 fL (7.4-10.4); Monocytes # (Auto) 0.78 K/mcL (0.10-0.90); Monocytes % (Auto) 12.9 % (1.0-12.0); Platelet Count 109 K/mcL (140-440); RBC 4.03 M/mcL (4.00-5.20); Red Cell Distribution Width 14.9 % (11.5-14.5); WBC 6.1 K/mcL (4.5-11.0)
[2021-02-22] MEDS: PIPERACILLIN SODIUM/TAZOBACTAM 3.375 GM in DEXTROSE 5% IN WATER 50 ML IV SCH ×2 (12:26→17:36)
[2021-02-22] MEDS: oxyCODONE HCL 5 MG TABLET PO PRN ×2 (12:26→17:36)
[2021-02-22 12:28] LABS: Phosphorous 2.2 mg/dL (2.5-4.5)
[2021-02-22] MEDS: VANCOMYCIN 1,500 MG in 0.9 % SODIUM CHLORIDE 500 ML IV SCH (13:08)
[2021-02-22] MEDS: POTASSIUM CHLORIDE IV SCH (13:08)
[2021-02-22] MEDS: [UNRECOGNIZED DRUG - OTHER] IV SCH (13:08)
[2021-02-22] MEDS: MAGNESIUM SULFATE IV SCH (13:08)
[2021-02-22] MEDS: CALCIUM GLUCONATE IV SCH (13:08)
[2021-02-22] MEDS: MVI IV SCH (13:08)
[2021-02-22 13:25] LABS: ALT/SGPT 22 U/L (<40); AST/SGOT 26 U/L (<32); Albumin 2.2 gm/dL (3.2-5.2); Albumin/Globulin Ratio 0.6 (1.0-2.3); Alkaline Phosphatase 119 U/L (39-117); Bilirubin,Direct 0.3 mg/dL (<0.3); Bilirubin,Total 0.7 mg/dL (0.1-1.0); Blood Urea Nitrogen 9 mg/dL (6-20); Calcium 7.2 mg/dL (8.6-10.4); Carbon Dioxide 17 mmol/L (22-30); Chloride 98 mmol/L (96-108); Globulin 3.4 gm/dL (2.2-3.7); Glomerular Filtration Rate 106; Glucose 201 mg/dL (70-105); Lactate Dehydrogenase 354 U/L (135-225); Phosphorous 2.2 mg/dL (2.5-4.5); Triglycerides 387 mg/dL (<150); Uric Acid 2.1 mg/dL (2.5-8.0)
[2021-02-22] MEDS ORDERED: POTASSIUM PHOSPHATE 40 MEQ in DEXTROSE 5% IN WATER 500 ML IV ONE (13:42)
[2021-02-22] MEDS ORDERED: MAGNESIUM SULFATE 4 GM/100 ML BAG IV ONE (13:42)
[2021-02-22 14:18] LABS: Estimated Average Glucose(eAG) 157 mg/dL; Hemoglobin A1C 7.1 % Hgb (4.0-6.0)
[2021-02-22] MEDS ORDERED: NYSTATIN CRM 1 DOSE TUBE TOPICAL PRN (14:27)
--- NOTE | 2021-02-22 14:42 | General Surgery Progress Note ---
SUBJECTIVE Subjective Patient information: Note initiated : 02/22/21 at 2:33 pm Service Date, if different from initiated Date: [] Patient: Dayanna Guo 60 y/o F admitted on 02/21/21 for DKA, Cold/Flu. Chief Complaint: [] Principal diagnosis: hyperglycemia;nausea and vomiting Interval history: Patient states that she feels much better. She has no discomfort except for joint pain. She has not had any chills but she did have fever ever elevation. Blood cultures done in the emergency room a positive for gram-positive cocci in clusters suspicious for Staph epidermidis. Her stoma is functioning well and her serum glucose is down to 201. Sodium is increased to 129 and BUN and creatinine are normal. White blood count 6.1 hemoglobin 11.7 hematocrit 35.1 platelets 109,000. There is no evidence of any ongoing blood loss from her GI tract. Her anemia is multifactorial but primarily due to poor bone marrow production because of her low serum iron. Constitutional Vitals: Vital Signs Temp Pulse Resp BP Pulse Ox 96.6 F L 93 H 20 134/80 94 02/22/21 12:00 02/22/21 12:00 02/22/21 12:00 02/22/21 12:00 02/22/21 12:00 Period Temp Pulse Resp BP Sys/Archuleta Pulse Ox Last 24 Hr 96.6 F-102.8 F 93-129 11-23 100-165/33-100 94-100 Intake and Output 02/22/21 02/22/21 02/22/21 05:59 13:59 21:59 Intake Total 1204 1170 Output Total 650 950 Balance 554 220 Weight 226 lb 14.4 oz Patient Weight 02/23/21 05:59 Weight 226 lb 14.4 oz Intake & Output: Intake & Output 02/22/21 02/22/21 02/22/21 05:59 13:59 21:59 Intake Total 1204 1170 Output Total 650 950 Balance 554 220 Weight 226 lb 14.4 oz Intake: IV 201 1050 Sodium Chloride 0.9% 1,000 ml @ 1000 125 mls/hr IV .Q8H [facility] Rx#: [id number] Sodium Chloride 0.9% 250 ml @ 201 20 mls/hr IV .[id number] [facility] Rx#: [id number] Zosyn 3.375 gm In Dextrose 5% 50 in Water 50 ml @ 100 mls/hr IV Q6H [facility] Rx#:[id number] Oral 300 120 Blood Product 703 Output: Void Amount 650 950 Other: Meal Lunch Percent of Meal Consumed 25% Feeding Ability Assist with Tray Set Up Urine Color Straw Urine Odor Normal Head Head exam: Present atraumatic, normal inspection and normocephalic Eye Eye exam: Present EOMI and normal appearance Pupils: Present PERRL ENT ENT exam: Present mucous membranes dry Neck Neck exam: Present full ROM and normal inspection; Absent lymphadenopathy and thyromegaly Respiratory Respiratory exam: Present normal respiratory exam and CTAB; Absent rales, rhonchi and wheezes Cardiovascular Cardiovascular exam: Present RRR, +S1, +S2 and tachycardia; Absent JVD GI/Abdominal GI/Abdominal exam: Present hyperactive bowel sounds; Absent distended, guarding, mass and tenderness Additional comments: Patient abdomen is soft and nondistended. She does not have any tenderness and there is no distention. Her stoma is functioning normally Extremities Exam Extremities exam: Present full ROM and neurovascular intact Additional comments: Mild tenderness in the anterior thigh on the right Scattered ecchymoses and petechiae on both upper and lower extremities but not in a specific pattern. No localized tenderness or swelling noted Neurological Exam Neurological exam: Present alert and oriented X3 Additional comments: Poor gait and stance due to generalized weakness Psychiatric Psychiatric exam: Present agitated, anxious and depressed Skin Additional comments: Normal except for skin changes noted above A/P Assessment and plan (1) Chronic iron deficiency anemia: Status: Acute (2) Polyglandular autoimmune syndrome: Status: Chronic Comment: I see no dental or nail dystrophy to suggest Type 1 polyglandular failure which is the only type associated with HYPOPARATHYROIDISM and no autoimmune adrenalitis. I have not read that MG is a feature and it's not clear that her thyroid disease is autoimmune in nature. So I'm skeptical of this Dx (3) Chronic use of steroids: Status: Chronic Comment: for myasthenia gravis; 10+ years, she started using steroids in 2002. 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 Comment: If no mechanical obstruction, patient says cholinesterase inhibitors usually wor ks Linzess is another possibility Octreotide has helped in children (8) Chronic, continuous use of opioids: Status: Chronic Comment: Need to minimize or stop as they are confusing the bowel issue (9) LA (obstructive sleep apnea): Status: Chronic (10) Hyponatremia: Status: Acute Narrative A/P Narrative: Replace phosphorus and magnesium Wait for identification of gram-positive cocci Continue full liquid diet Hemoglobin level is adequate and no further transfusion is needed Replace phosphorus and magnesium Restart TPN with Accu-Chek coverage Time Spent With Patient Time: Total time spent is greater than 50% in coordination of care (as documented) at patient's floor/unit and/or counseling patient:
[2021-02-22] MEDS: CYCLOBENZAPRINE 10 MG TABLET PO PRN (15:08)
[2021-02-22] MEDS: FERROUS SULFATE 325 MG TABLET PO SCH (17:36)
[2021-02-22] MEDS: SENNOSIDES 1 TABLET PO SCH (20:58)
[2021-02-23] MEDS: PIPERACILLIN SODIUM/TAZOBACTAM 3.375 GM in DEXTROSE 5% IN WATER 50 ML IV SCH ×4 (00:15→17:04)
[2021-02-23] MEDS: HYDROmorphone 0.5 MG/0.5 ML SYRINGE IV PRN ×7 (00:30→22:22)
[2021-02-23] MEDS: INSULIN LISPRO 1 UNIT/0.01 ML UNIT SQ SCH ×6 (00:37→19:17)
[2021-02-23] MEDS: 0.9 % SODIUM CHLORIDE 1,000 ML IV SCH ×5 (01:39→21:19)
[2021-02-23] MEDS: PYRIDOSTIGMINE BROMIDE 10 MG/2 ML AMPUL IM SCH ×4 (01:58→20:39)
[2021-02-23] MEDS: 0.9 % SODIUM CHLORIDE 10 ML SYRINGE IV SCH ×3 (06:05→20:46)
[2021-02-23] MEDS: oxyCODONE HCL 5 MG TABLET PO PRN ×2 (06:08→20:40)
[2021-02-23] MEDS: FERROUS SULFATE 325 MG TABLET PO SCH ×3 (07:11→16:25)
[2021-02-23] MEDS: predniSONE 20 MG TABLET PO SCH (07:11)
[2021-02-23] MEDS: LEVOTHYROXINE 100 MCG TABLET PO SCH (07:11)
[2021-02-23 07:18] LABS: Basophils # (Auto) 0.02 K/mcL (0.00-0.20); Basophils % (Auto) 0.3 % (0.0-2.0); Eosinophils # (Auto) 0.08 K/mcL (0.00-0.70); Eosinophils % (Auto) 1.3 % (0.0-7.0); Hematocrit 33.5 % (36.0-48.0); Hemoglobin 11.2 g/dL (12.0-15.0); Lymphocytes # (Auto) 1.08 K/mcL (1.50-4.80); Lymphocytes % (Auto) 18.2 % (15.0-49.0); Mean Cell Volume 89.1 fL (80.0-100.0); Mean Corpuscular HGB Conc 33.4 g/dL (31.0-36.0); Mean Platelet Volume 10.9 fL (7.4-10.4); Monocytes # (Auto) 0.73 K/mcL (0.10-0.90); Monocytes % (Auto) 12.3 % (1.0-12.0); Neutrophils % (Auto) 67.9 % (38.0-78.0); Platelet Count 132 K/mcL (140-440); RBC 3.76 M/mcL (4.00-5.20)
[2021-02-23 07:45] LABS: ALT/SGPT 25 U/L (<40); AST/SGOT 30 U/L (<32); Albumin/Globulin Ratio 0.6 (1.0-2.3); Alkaline Phosphatase 111 U/L (39-117); Bilirubin,Direct < 0.2 mg/dL (0-0.3); Bilirubin,Total 0.3 mg/dL (0.1-1.0); Blood Urea Nitrogen 17 mg/dL (6-20); Calcium 8.2 mg/dL (8.6-10.4); Carbon Dioxide 20 mmol/L (22-30); Chloride 101 mmol/L (96-108); Globulin 3.5 gm/dL (2.2-3.7); Glomerular Filtration Rate 100; Glucose 177 mg/dL (70-105); Lactate Dehydrogenase 416 U/L (135-225); Phosphorous 4.8 mg/dL (2.5-4.5); Triglycerides 350 mg/dL (<150); Uric Acid 1.6 mg/dL (2.5-8.0)
[2021-02-23] MEDS: APIXABAN 5 MG TABLET PO SCH ×2 (08:58→20:40)
[2021-02-23] MEDS: MAGNESIUM OXIDE 400 MG TABLET PO SCH (08:58)
[2021-02-23] MEDS: DULoxetine 30 MG CAPSULE PO SCH ×2 (08:59→20:40)
[2021-02-23] MEDS: GABAPENTIN 300 MG CAPSULE PO SCH ×2 (08:59→20:40)
[2021-02-23] MEDS: CALCITRIOL 0.25 MCG CAPSULE PO SCH (08:59)
[2021-02-23] MEDS: DOCUSATE SODIUM 100 MG CAPSULE PO SCH ×2 (08:59→20:40)
[2021-02-23] MEDS: METOPROLOL SUCCINATE 50 MG TAB.XL.24H PO SCH (08:59)
[2021-02-23] MEDS: INSULIN GLARGINE, HUMAN 1 UNIT/0.01 ML SQ SCH ×2 (08:59→20:46)
[2021-02-23] MEDS: VANCOMYCIN 1,500 MG in 0.9 % SODIUM CHLORIDE 500 ML IV SCH (09:10)
[2021-02-23] MEDS: metFORMIN 500 MG TABLET PO SCH ×2 (11:33→16:25)
[2021-02-23] MEDS: MAGNESIUM SULFATE IV SCH (14:33)
[2021-02-23] MEDS: POTASSIUM CHLORIDE IV SCH (14:33)
[2021-02-23] MEDS: [UNRECOGNIZED DRUG - OTHER] IV SCH (14:33)
[2021-02-23] MEDS: MVI IV SCH (14:33)
[2021-02-23] MEDS: CALCIUM GLUCONATE IV SCH (14:33)
--- NOTE | 2021-02-23 17:17 | General Surgery Progress Note ---
SUBJECTIVE Subjective Patient information: Note initiated : 02/23/21 at 5:16 pm Service Date, if different from initiated Date: [] Patient: Dayanna Guo 60 y/o F admitted on 02/21/21 for DKA, Cold/Flu. Chief Complaint: [] Principal diagnosis: hyperglycemia;nausea and vomiting Interval history: Patient states that she feels much better. She has no discomfort except for joint pain. She has not had any chills but she did have fever ever elevation. Blood cultures done in the emergency room a positive for gram-positive cocci in clusters suspicious for Staph epidermidis. Her stoma is functioning well and her serum glucose is down to 201. Sodium is increased to 129 and BUN and creatinine are normal. White blood count 6.1 hemoglobin 11.7 hematocrit 35.1 platelets 109,000. There is no evidence of any ongoing blood loss from her GI tract. Her anemia is multifactorial but primarily due to poor bone marrow production because of her low serum iron. Constitutional Vitals: Vital Signs Temp Pulse Resp BP Pulse Ox 97.5 F 85 20 145/87 93 02/23/21 15:50 02/23/21 15:50 02/23/21 15:50 02/23/21 15:50 02/23/21 15:50 Period Temp Pulse Resp BP Sys/Archuleta Pulse Ox Last 24 Hr 96.6 F-97.6 F 71-97 7-20 121-176/65-114 93-98 Intake and Output 02/23/21 02/23/21 02/23/21 05:59 13:59 21:59 Intake Total 1259.0909 1600 2152.6579 Output Total 1125 1050 100 Balance 134.0909 550 2051.6579 Weight 229 lb 6.4 oz Intake & Output: Intake & Output 02/23/21 02/23/21 02/23/21 05:59 13:59 21:59 Intake Total 1259.0909 1600 2.6579 Output Total 1125 1050 100 Balance 134.0909 550 2051.6579 Weight 229 lb 6.4 oz Intake: IV 559.0909 1600 2.6579 Sodium Chloride 0.9% 1,000 ml @ 1000 125 mls/hr IV .Q8H [facility] Rx#: [id number] Calcium Gluconate 40 Meq 2152.6579 Magnesium Sulfate 32.48 Meq Potassium Chloride 20 Meq Infuvite Adult 10 ml Potassium Phosphate 60 Meq Sodium Chloride 100 Meq In Clinimix 5% -20% Solution 2,000 ml @ 85 mls /hr IV DAILY@1300 [facility] Rx#: [id number] Zosyn 3.375 gm In Dextrose 5% 50 100 in Water 50 ml @ 100 mls/hr IV Q6H [facility] Rx#:[id number] Potassium Phosphate 40 Meq In 509.0909 Dextrose 5% in Water 500 ml @ 127.273 mls/hr IV ONCE ONE Rx#: [id number] Vancomycin 1,500 mg In Sodium 500 Chloride 0.9% 500 ml @ 333.3 mls/hr IV DAILY [facility] Rx#: [id number] Oral 700 Output: Void Amount 975 950 100 Stool 150 100 Other: Urine Appearance Clear Clear Urine Color Straw Bright Yellow Urine Odor Normal Stool Size Small Stool Color Brown Green Stool Consistency Normal for Patient Liquid Watery A/P Assessment and plan (1) Chronic iron deficiency anemia: Status: Acute (2) Polyglandular autoimmune syndrome: Status: Chronic Comment: I see no dental or nail dystrophy to suggest Type 1 polyglandular failure which is the only type associated with HYPOPARATHYROIDISM and no autoimmune adrenalitis. I have not read that MG is a feature and it's not clear that her thyroid disease is autoimmune in nature. So I'm skeptical of this Dx (3) Chronic use of steroids: Status: Chronic Comment: for myasthenia gravis; 10+ years, she started using steroids in 2002. 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 Comment: If no mechanical obstruction, patient says cholinesterase inhibitors usually works Linzess is another possibility Octreotide has helped in children (8) Chronic, continuous use of opioids: Status: Chronic Comment: Need to minimize or stop as they are confusing the bowel issue (9) LA (obstructive sleep apnea): Status: Chronic (10) Hyponatremia: Status: Acute Narrative A/P Narrative: Replace phosphorus and magnesium Wait for identification of gram-positive cocci Continue full liquid diet Hemoglobin level is adequate and no further transfusion is needed Replace phosphorus and magnesium Restart TPN with Accu-Chek coverage Time Spent With Patient Time: Total time spent is greater than 50% in coordination of care (as documented) at patient's floor/unit and/or counseling patient:
--- NOTE | 2021-02-23 17:25 | General Surgery Progress Note ---
SUBJECTIVE Subjective Patient information: Note initiated : 02/23/21 at 5:21 pm Service Date, if different from initiated Date: [] Patient: Dayanna Gou 60 y/o F admitted on 02/21/21 for DKA, Cold/Flu. Chief Complaint: [] Principal diagnosis: hyperglycemia;nausea and vomiting Interval history: Patient states that she feels well. She has some joint pain and back pain but no abdominal discomfort. She does not have good appetite but denies having any abdominal pain. She has good output through her stoma. Her stool is now dark because she has been started on ferrous sulfate. Her blood sugars are running high in the 300-400 range and I will increase her basal insulin. BUN 17 creatinine 0.6, white blood count 6, hemoglobin 11.2, hematocrit 33.5, hemoglobin A1c 7.1, sed rate 90. Constitutional Vitals: Vital Signs Temp Pulse Resp BP Pulse Ox 97.5 F 85 20 145/87 93 02/23/21 15:50 02/23/21 15:50 02/23/21 15:50 02/23/21 15:50 02/23/21 15:50 Period Temp Pulse Resp BP Sys/Archuleta Pulse Ox Last 24 Hr 96.6 F-97.6 F 71-97 7-20 121-176/65-114 93-98 Intake and Output 02/23/21 02/23/21 02/23/21 05:59 13:59 21:59 Intake Total 1259.0909 1600 2152.6579 Output Total 1125 1050 100 Balance 134.0909 550 2.6579 Weight 229 lb 6.4 oz Intake & Output: Intake & Output 02/23/21 02/23/21 02/23/21 05:59 13:59 21:59 Intake Total 1259.0909 1600 2152.6579 Output Total 1125 1050 100 Balance 134.0909 550 2.6579 Weight 229 lb 6.4 oz Intake: IV 559.0909 1600 2152.6579 Sodium Chloride 0.9% 1,000 ml @ 1000 125 mls/hr IV .Q8H [facility] Rx#: [id number] Calcium Gluconate 40 Meq 2152.6579 Magnesium Sulfate 32.48 Meq Potassium Chloride 20 Meq Infuvite Adult 10 ml Potassium Phosphate 60 Meq Sodium Chloride 100 Meq In Clinimix 5% -20% Solution 2,000 ml @ 85 mls /hr IV DAILY@1300 [facility] Rx#: [id number] Zosyn 3.375 gm In Dextrose 5% 50 100 in Water 50 ml @ 100 mls/hr IV Q6H [facility] Rx#:[id number] Potassium Phosphate 40 Meq In 509.0909 Dextrose 5% in Water 500 ml @ 127.273 mls/hr IV ONCE ONE Rx#: [id number] Vancomycin 1,500 mg In Sodium 500 Chloride 0.9% 500 ml @ 333.3 mls/hr IV DAILY [facility] Rx#: [id number] Oral 700 Output: Void Amount 975 950 100 Stool 150 100 Other: Urine Appearance Clear Clear Urine Color Straw Bright Yellow Urine Odor Normal Stool Size Small Stool Color Brown Green Stool Consistency Normal for Patient Liquid Watery Head Head exam: Present atraumatic, normal inspection and normocephalic Eye Eye exam: Present EOMI and normal appearance Pupils: Present PERRL ENT ENT exam: Present mucous membranes dry Neck Neck exam: Present full ROM and normal inspection; Absent lymphadenopathy and thyromegaly Respiratory Respiratory exam: Present normal respiratory exam and CTAB; Absent rales, rhonchi and wheezes Cardiovascular Cardiovascular exam: Present RRR, +S1, +S2 and tachycardia; Absent JVD GI/Abdominal GI/Abdominal exam: Present hyperactive bowel sounds; Absent distended, guarding, mass and tenderness Additional comments: Patient abdomen is soft and nondistended. She does not have any tenderness and there is no distention. Her stoma is functioning normally Extremities Exam Extremities exam: Present full ROM and neurovascular intact Additional comments: Mild tenderness in the anterior thigh on the right Scattered ecchymoses and petechiae on both upper and lower extremities but not in a specific pattern. No localized tenderness or swelling noted Back Exam Back exam: Present full ROM and normal inspection Neurological Exam Neurological exam: Present alert and oriented X3 Additional comments: Poor gait and stance due to generalized weakness Psychiatric Psychiatric exam: Present agitated, anxious and depressed A/P Assessment and plan (1) Chronic iron deficiency anemia: Status: Acute (2) Polyglandular autoimmune syndrome: Status: Chronic Comment: I see no dental or nail dystrophy to suggest Type 1 polyglandular failure which is the only type associated with HYPOPARATHYROIDISM and no autoimmune adrenalitis. I have not read that MG is a feature and it's not clear that her thyroid disease is autoimmune in nature. So I'm skeptical of this Dx (3) Chronic use of steroids: Status: Chronic Comment: for myasthenia gravis; 10+ years, she started using steroids in 2002. 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 Comment: If no mechanical obstruction, patient says cholinesterase inhibitors usually works Linzess is another possibility Octreotide has helped in children (8) Chronic, continuous use of opioids: Status: Chronic Comment: Need to minimize or stop as they are confusing the bowel issue (9) LA (obstructive sleep apnea): Status: Chronic (10) Hyponatremia: Status: Acute Narrative A/P Narrative: Lantus insulin 20 units subcu twice daily Continue antibiotics pending culture and sensitivity results Time Spent With Patient Time: Total time spent is greater than 50% in coordination of care (as documented) at patient's floor/unit and/or counseling patient:
[2021-02-23] MEDS: SENNOSIDES 1 TABLET PO SCH (20:40)
[2021-02-23] MEDS: CYCLOBENZAPRINE 10 MG TABLET PO PRN (22:22)
[2021-02-24] MEDS: PIPERACILLIN SODIUM/TAZOBACTAM 3.375 GM in DEXTROSE 5% IN WATER 50 ML IV SCH ×5 (00:15→23:45)
[2021-02-24] MEDS: INSULIN LISPRO 1 UNIT/0.01 ML UNIT SQ SCH ×4 (00:29→17:19)
[2021-02-24] MEDS: HYDROmorphone 0.5 MG/0.5 ML SYRINGE IV PRN ×8 (00:29→22:16)
[2021-02-24] MEDS: oxyCODONE HCL 5 MG TABLET PO PRN ×2 (00:45→19:07)
[2021-02-24] MEDS: PYRIDOSTIGMINE BROMIDE 10 MG/2 ML AMPUL IM SCH ×4 (02:05→22:15)
[2021-02-24] MEDS: 0.9 % SODIUM CHLORIDE 1,000 ML IV SCH ×4 (02:05→17:23)
[2021-02-24] MEDS: 0.9 % SODIUM CHLORIDE 10 ML SYRINGE IV SCH ×3 (05:19→22:24)
[2021-02-24] MEDS: CYCLOBENZAPRINE 10 MG TABLET PO PRN (06:21)
[2021-02-24] MEDS: LEVOTHYROXINE 100 MCG TABLET PO SCH (07:19)
[2021-02-24] MEDS: predniSONE 20 MG TABLET PO SCH (07:19)
[2021-02-24] MEDS: metFORMIN 500 MG TABLET PO SCH ×2 (07:19→17:10)
[2021-02-24] MEDS: FERROUS SULFATE 325 MG TABLET PO SCH ×3 (07:19→17:10)
[2021-02-24 07:31] LABS: Basophils # (Auto) 0.02 K/mcL (0.00-0.20); Basophils % (Auto) 0.3 % (0.0-2.0); Eosinophils # (Auto) 0.17 K/mcL (0.00-0.70); Eosinophils % (Auto) 2.8 % (0.0-7.0); Hematocrit 37.8 % (36.0-48.0); Hemoglobin 12.3 g/dL (12.0-15.0); Lymphocytes # (Auto) 0.95 K/mcL (1.50-4.80); Lymphocytes % (Auto) 15.4 % (15.0-49.0); Mean Corpuscular HGB Conc 32.5 g/dL (31.0-36.0); Monocytes # (Auto) 0.63 K/mcL (0.10-0.90); Monocytes % (Auto) 10.2 % (1.0-12.0); Neutrophils % (Auto) 71.3 % (38.0-78.0); Platelet Count 141 K/mcL (140-440); RBC 4.11 M/mcL (4.00-5.20); Red Cell Distribution Width 14.8 % (11.5-14.5); WBC 6.2 K/mcL (4.5-11.0)
[2021-02-24] MEDS: DULoxetine 30 MG CAPSULE PO SCH ×2 (08:24→22:15)
[2021-02-24] MEDS: METOPROLOL SUCCINATE 50 MG TAB.XL.24H PO SCH (08:24)
[2021-02-24] MEDS: GABAPENTIN 300 MG CAPSULE PO SCH ×2 (08:24→22:15)
[2021-02-24] MEDS: MAGNESIUM OXIDE 400 MG TABLET PO SCH (08:24)
[2021-02-24] MEDS: DOCUSATE SODIUM 100 MG CAPSULE PO SCH ×2 (08:24→22:15)
[2021-02-24] MEDS: APIXABAN 5 MG TABLET PO SCH ×2 (08:24→22:15)
[2021-02-24] MEDS: INSULIN GLARGINE, HUMAN 1 UNIT/0.01 ML SQ SCH ×2 (08:25→22:14)
[2021-02-24 09:43] LABS: ALT/SGPT 23 U/L (<40); AST/SGOT 18 U/L (<32); Albumin 2.2 gm/dL (3.2-5.2); Albumin/Globulin Ratio 0.7 (1.0-2.3); Alkaline Phosphatase 91 U/L (39-117); Bilirubin,Direct < 0.2 mg/dL (0-0.3); Bilirubin,Total 0.2 mg/dL (0.1-1.0); Blood Urea Nitrogen 16 mg/dL (6-20); Calcium 8.3 mg/dL (8.6-10.4); Carbon Dioxide 24 mmol/L (22-30); Chloride 99 mmol/L (96-108); Globulin 3.1 gm/dL (2.2-3.7); Glomerular Filtration Rate 100; Glucose 272 mg/dL (70-105); Lactate Dehydrogenase 377 U/L (135-225); Phosphorous 2.7 mg/dL (2.5-4.5); Triglycerides 334 mg/dL (<150); Uric Acid 1.1 mg/dL (2.5-8.0)
[2021-02-24] MEDS: VANCOMYCIN 1,500 MG in 0.9 % SODIUM CHLORIDE 500 ML IV SCH (10:25)
--- NOTE | 2021-02-24 12:23 | General Surgery Progress Note ---
SUBJECTIVE Subjective Patient information: Note initiated : 02/24/21 at 12:18 pm Service Date, if different from initiated Date: [] Patient: Dayanna Guo 60 y/o F admitted on 02/21/21 for DKA, Cold/Flu. Chief Complaint: [] Principal diagnosis: hyperglycemia;nausea and vomiting Interval history: Patient continues to improve. She is complaining of joint and soft tissue pain. She does not have significant abdominal discomfort. Her stoma is functioning normal. She does not have abdominal distention. White blood count 6.2, hemoglobin 12.3, hematocrit 37.8, sodium 130, potassium 4, BUN 16, creatinine 0.6, magnesium and phosphorus are normal. Constitutional Vitals: Vital Signs Temp Pulse Resp BP Pulse Ox 97.6 F 90 16 149/82 94 02/24/21 11:35 02/24/21 11:35 02/24/21 11:35 02/24/21 11:35 02/24/21 11:35 Period Temp Pulse Resp BP Sys/Archuleta Pulse Ox Last 24 Hr 97.2 F-98.3 F 69-93 16-20 136-181/76-100 93-97 Intake and Output 02/23/21 02/24/21 02/24/21 21:59 05:59 13:59 Intake Total 4183.6579 1350 550 Output Total 651 803 202 Balance 3532.6579 547 348 Weight 233 lb 12.8 oz Intake & Output: Intake & Output 02/23/21 02/24/21 02/24/21 21:59 05:59 13:59 Intake Total 4183.6579 1350 550 Output Total 651 803 202 Balance 3532.6579 547 348 Weight 233 lb 12.8 oz Intake: IV 3183.6579 1050 550 Sodium Chloride 0.9% 1,000 ml @ 981 1000 125 mls/hr IV .Q8H [facility] Rx#: [id number] Calcium Gluconate 40 Meq 2152.6579 Magnesium Sulfate 32.48 Meq Potassium Chloride 20 Meq Infuvite Adult 10 ml Potassium Phosphate 60 Meq Sodium Chloride 100 Meq In Clinimix 5% -20% Solution 2,000 ml @ 85 mls /hr IV DAILY@1300 [facility] Rx#: [id number] Zosyn 3.375 gm In Dextrose 5% 50 50 50 in Water 50 ml @ 100 mls/hr IV Q6H [facility] Rx#:[id number] Vancomycin 1,500 mg In Sodium 500 Chloride 0.9% 500 ml @ 333.3 mls/hr IV DAILY [facility] Rx#: [id number] Oral 1000 300 Output: Void Amount 550 700 200 # of times incontinent of urine 1 3 2 Stool 100 100 Other: Meal Dinner Breakfast Percent of Meal Consumed 75% Refused Feeding Ability Independent Urine Appearance Clear Clear Clear Urine Color Pale Pale Bright Yellow Urine Odor Normal Stool Size Moderate Stool Color Brown Green Black Stool Consistency Soft Liquid # Voids 150 2 Head Head exam: Present atraumatic, normal inspection and normocephalic Eye Eye exam: Present EOMI Pupils: Present normal accommodation and PERRL ENT ENT exam: Present mucous membranes moist and normal exam Neck Neck exam: Present full ROM; Absent tenderness and thyromegaly Respiratory Respiratory exam: Present normal respiratory exam and CTAB; Absent rales, rhonchi and wheezes Cardiovascular Cardiovascular exam: Present normal rate and rhythm, RRR, +S1 and +S2; Absent gallop and JVD GI/Abdominal GI/Abdominal exam: Present soft; Absent distended, mass and tenderness Extremities Exam Extremities exam: Present full ROM and neurovascular intact; Absent calf tenderness Additional comments: Petechiae and ecchymotic changes of legs are significantly improved; there is no evidence of phlebitis Neurological Exam Neurological exam: Present alert and oriented X3 Additional comments: Poor gait and stance due to generalized weakness Psychiatric Psychiatric exam: Present anxious, normal affect and normal mood A/P Assessment and plan (1) Chronic iron deficiency anemia: Status: Acute (2) Polyglandular autoimmune syndrome: Status: Chronic Comment: I see no dental or nail dystrophy to suggest Type 1 polyglandular failure which is the only type associated with HYPOPARATHYROIDISM and no autoimmune adrenal itis. I have not read that MG is a feature and it's not clear that her thyroid disease is autoimmune in nature. So I'm skeptical of this Dx (3) Chronic use of steroids: Status: Chronic Comment: for myasthenia gravis; 10+ years, she started using steroids in 2002. 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 Comment: If no mechanical obstruction, patient says cholinesterase inhibitors usually works Linzess is another possibility Octreotide has helped in children (8) Chronic, continuous use of opioids: Status: Chronic Comment: Need to minimize or stop as they are confusing the bowel issue (9) LA (obstructive sleep apnea): Status: Chronic (10) Hyponatremia: Status: Acute Narrative A/P Narrative: Try to increase oral intake We will taper off TPN by Saturday Continue antibiotics until sensitivities are available Time Spent With Patient Time: Total time spent is greater than 50% in coordination of care (as documented) at patient's floor/unit and/or counseling patient:
[2021-02-24] MEDS ORDERED: MVI IV SCH (13:00)
[2021-02-24] MEDS ORDERED: MAGNESIUM SULFATE IV SCH (13:00)
[2021-02-24] MEDS ORDERED: POTASSIUM CHLORIDE IV SCH (13:00)
[2021-02-24] MEDS ORDERED: [UNRECOGNIZED DRUG - OTHER] IV SCH (13:00)
[2021-02-24] MEDS ORDERED: CALCIUM GLUCONATE IV SCH (13:00)
[2021-02-24] MEDS: SENNOSIDES 1 TABLET PO SCH (22:24)
[2021-02-25] MEDS: HYDROmorphone 0.5 MG/0.5 ML SYRINGE IV PRN ×3 (00:25→05:46)
[2021-02-25] MEDS: INSULIN LISPRO 1 UNIT/0.01 ML UNIT SQ SCH ×4 (00:32→17:26)
[2021-02-25] MEDS: oxyCODONE HCL 5 MG TABLET PO PRN ×3 (01:16→22:14)
[2021-02-25] MEDS: 0.9 % SODIUM CHLORIDE 1,000 ML IV SCH ×3 (02:54→15:24)
[2021-02-25] MEDS: PYRIDOSTIGMINE BROMIDE 10 MG/2 ML AMPUL IM SCH ×4 (03:59→20:36)
[2021-02-25] MEDS: PIPERACILLIN SODIUM/TAZOBACTAM 3.375 GM in DEXTROSE 5% IN WATER 50 ML IV SCH (05:28)
[2021-02-25] MEDS: 0.9 % SODIUM CHLORIDE 10 ML SYRINGE IV SCH ×3 (05:46→22:20)
[2021-02-25] MEDS: FERROUS SULFATE 325 MG TABLET PO SCH ×3 (07:32→16:48)
[2021-02-25] MEDS: LEVOTHYROXINE 100 MCG TABLET PO SCH (07:32)
[2021-02-25] MEDS: predniSONE 20 MG TABLET PO SCH (07:33)
[2021-02-25] MEDS: metFORMIN 500 MG TABLET PO SCH ×2 (07:33→16:48)
[2021-02-25 08:16] LABS: Basophils # (Auto) 0.04 K/mcL (0.00-0.20); Basophils % (Auto) 0.6 % (0.0-2.0); Eosinophils # (Auto) 0.18 K/mcL (0.00-0.70); Eosinophils % (Auto) 2.9 % (0.0-7.0); Hematocrit 37.3 % (36.0-48.0); Hemoglobin 12.4 g/dL (12.0-15.0); Lymphocytes # (Auto) 1.25 K/mcL (1.50-4.80); Lymphocytes % (Auto) 19.9 % (15.0-49.0); Mean Cell Volume 88.2 fL (80.0-100.0); Mean Corpuscular HGB Conc 33.2 g/dL (31.0-36.0); Monocytes # (Auto) 0.42 K/mcL (0.10-0.90); Monocytes % (Auto) 6.7 % (1.0-12.0); Neutrophils % (Auto) 69.9 % (38.0-78.0); Platelet Count 196 K/mcL (140-440); RBC 4.23 M/mcL (4.00-5.20); Red Cell Distribution Width 14.5 % (11.5-14.5); WBC 6.3 K/mcL (4.5-11.0)
[2021-02-25] MEDS: CALCITRIOL 0.25 MCG CAPSULE PO SCH (08:45)
[2021-02-25] MEDS: MAGNESIUM OXIDE 400 MG TABLET PO SCH (08:45)
[2021-02-25] MEDS: DOCUSATE SODIUM 100 MG CAPSULE PO SCH ×2 (08:45→20:37)
[2021-02-25] MEDS: DULoxetine 30 MG CAPSULE PO SCH ×2 (08:45→20:37)
[2021-02-25] MEDS: GABAPENTIN 300 MG CAPSULE PO SCH ×2 (08:45→20:37)
[2021-02-25] MEDS: APIXABAN 5 MG TABLET PO SCH ×2 (08:46→20:37)
[2021-02-25] MEDS: METOPROLOL SUCCINATE 50 MG TAB.XL.24H PO SCH (08:46)
[2021-02-25] MEDS: INSULIN GLARGINE, HUMAN 1 UNIT/0.01 ML SQ SCH ×2 (08:49→20:36)
[2021-02-25] MEDS: VANCOMYCIN 1,500 MG in 0.9 % SODIUM CHLORIDE 500 ML IV SCH (08:54)
[2021-02-25 09:39] LABS: ALT/SGPT 32 U/L (<40); AST/SGOT 21 U/L (<32); Albumin 2.7 gm/dL (3.2-5.2); Albumin/Globulin Ratio 0.8 (1.0-2.3); Alkaline Phosphatase 103 U/L (39-117); Bilirubin,Direct < 0.2 mg/dL (0-0.3); Bilirubin,Total 0.3 mg/dL (0.1-1.0); Blood Urea Nitrogen 14 mg/dL (6-20); Calcium 8.9 mg/dL (8.6-10.4); Carbon Dioxide 25 mmol/L (22-30); Chloride 98 mmol/L (96-108); Globulin 3.4 gm/dL (2.2-3.7); Glomerular Filtration Rate 100; Glucose 280 mg/dL (70-105); Lactate Dehydrogenase 410 U/L (135-225); Phosphorous 2.7 mg/dL (2.5-4.5); Triglycerides 387 mg/dL (<150)
[2021-02-25] MEDS: CLINDAMYCIN 600 MG in DEXTROSE 5% IN WATER 50 ML IV SCH ×2 (12:07→17:16)
--- NOTE | 2021-02-25 12:07 | General Surgery Progress Note ---
SUBJECTIVE Subjective Patient information: Note initiated : 02/25/21 at 11:58 am Service Date, if different from initiated Date: [] Patient: Dayanna Guo 60 y/o F admitted on 02/21/21 for DKA, Cold/Flu. Chief Complaint: [] Principal diagnosis: hyperglycemia;nausea and vomiting Interval history: Patient is still clinically stable but she is mentally agitated and not very cooperative in her care. She complains of anorexia and will not take any significant p.o. intake. She has been afebrile and her white blood count is only 6.3. Cultures on the Staph epidermidis shows resistant to Zosyn so she is switched to clindamycin. She complains of soft tissue and joint pain but no abdominal pain. Her stoma is functioning normally. Potassium 3.9, BUN 14, creatinine 0.6, glucose 280, white blood count 6.3, hemoglobin 12.4, hematocrit 37.3. Constitutional Vitals: Vital Signs Temp Pulse Resp BP Pulse Ox 98.2 F 104 H 16 155/102 97 02/25/21 11:54 02/25/21 11:54 02/25/21 11:54 02/25/21 11:54 02/25/21 11:54 Period Temp Pulse Resp BP Sys/Archuleta Pulse Ox Last 24 Hr 97.3 F-98.7 F 67-104 14-20 155-184/82-102 93-98 Intake and Output 02/24/21 02/25/21 02/25/21 21:59 05:59 13:59 Intake Total 469.6579 1300 1650 Output Total 1751 752 1 Balance -1281.3421 548 1649 Weight 233 lb 1.6 oz Intake & Output: Intake & Output 02/24/21 02/25/21 02/25/21 21:59 05:59 13:59 Intake Total 469.6579 1300 1650 Output Total 1751 752 1 Balance -1281.3421 548 1649 Weight 233 lb 1.6 oz Intake: IV 229.6579 1100 1500 Sodium Chloride 0.9% 1,000 ml @ 1000 1000 125 mls/hr IV .Q8H [facility] Rx#: [id number] Calcium Gluconate 40 Meq 179.6579 Magnesium Sulfate 32.48 Meq Potassium Chloride 20 Meq Infuvite Adult 10 ml Potassium Phosphate 60 Meq Sodium Chloride 100 Meq In Clinimix 5% -20% Solution 2,000 ml @ 85 mls /hr IV DAILY@1300 [facility] Rx#: [id number] Zosyn 3.375 gm In Dextrose 5% 50 100 in Water 50 ml @ 100 mls/hr IV Q6H [facility] Rx#:[id number] Vancomycin 1,500 mg In Sodium 500 Chloride 0.9% 500 ml @ 333.3 mls/hr IV DAILY [facility] Rx#: [id number] Oral 240 200 150 Output: Void Amount 1450 650 # of times incontinent of urine 1 2 1 Stool 300 100 Other: Meal Dinner Percent of Meal Consumed 50% Nourishment/Supplement name Raspberry gelatin 100%, Glucerna 100% Urine Appearance Clear Clear Sediment Urine Color Pale Pale Stool Color Brown Stool Consistency Liquid # Voids 1 # of times incontinent of 1 1 Bowels Head Head exam: Present atraumatic, normal inspection and normocephalic Eye Eye exam: Present EOMI Pupils: Present normal accommodation and PERRL ENT ENT exam: Present mucous membranes moist and normal exam Neck Neck exam: Present full ROM; Absent tenderness and thyromegaly Respiratory Respiratory exam: Present normal respiratory exam and CTAB; Absent rales, rhonchi and wheezes Cardiovascular Cardiovascular exam: Present normal rate and rhythm, RRR, +S1 and +S2; Absent gallop and JVD GI/Abdominal GI/Abdominal exam: Present soft; Absent distended, mass and tenderness Additional comments: Stoma in right lower quadrant is functioning normal with good output Extremities Exam Extremities exam: Present full ROM and neurovascular intact; Absent calf tenderness Additional comments: Petechiae and ecchymotic changes of legs are significantly improved; there is no evidence of phlebitis Neurological Exam Neurological exam: Present alert and oriented X3 Additional comments: Poor gait and stance due to generalized weakness Psychiatric Psychiatric exam: Present anxious, normal affect and normal mood A/P Assessment and plan (1) Chronic iron deficiency anemia: Status: Acute (2) Acute hyperglycemia: Status: Acute (3) Acute dehydration: Status: Acute (4) Myasthenia gravis: Status: Chronic Comment: Prednisone dependent at 20 mg daily. In association with thyoma ~20 yrs [employer] Cholinesterase inhibitor IM and/or PO (5) Polyglandular autoimmune syndrome: Status: Chronic Comment: I see no dental or nail dystrophy to suggest Type 1 polyglandular failure which is the only type associated with HYPOPARATHYROIDISM and no autoimmune adrenalitis. I have not read that MG is a feature and it's not clear that her thyroid disease is autoimmune in nature. So I'm skeptical of this Dx (6) Chronic use of steroids: Status: Chronic Comment: for myasthenia gravis; 10+ years, she started using steroids in 2002. (7) Diabetes mellitus type 2, uncontrolled: Status: Chronic Qualifiers: Coma presence: unspecified whether coma present (8) Chronic, continuous use of opioids: Status: Chronic Comment: Need to minimize or stop as they are confusing the bowel issue (9) Primary chronic pseudo-obstruction of small intestine: Status: Acute Narrative A/P Narrative: Discontinue TPN Discontinue Zosyn Start clindamycin 600 mg IV every 6 hours Adjust insulin back to sliding scale coverage with basal insulin at 10 units twice daily Time Spent With Patient Time: Total time spent is greater than 50% in coordination of care (as documented) at patient's floor/unit and/or counseling patient:
[2021-02-25] MEDS: ACETAMINOPHEN 1,000 MG/100 ML BAG IV SCH ×2 (12:48→17:58)
[2021-02-25] MEDS ORDERED: POTASSIUM CHLORIDE IV SCH (13:00)
[2021-02-25] MEDS ORDERED: MVI IV SCH (13:00)
[2021-02-25] MEDS ORDERED: MAGNESIUM SULFATE IV SCH (13:00)
[2021-02-25] MEDS ORDERED: CALCIUM GLUCONATE IV SCH (13:00)
[2021-02-25] MEDS ORDERED: [UNRECOGNIZED DRUG - OTHER] IV SCH (13:00)
[2021-02-25] MEDS: SENNOSIDES 1 TABLET PO SCH (20:37)
[2021-02-25] MEDS ORDERED: ALTEPLASE 2 MG VIAL IV ONE (23:47)
[2021-02-26] MEDS: INSULIN LISPRO 1 UNIT/0.01 ML UNIT SQ SCH ×4 (00:05→17:35)
[2021-02-26] MEDS: ACETAMINOPHEN 1,000 MG/100 ML BAG IV SCH ×5 (00:10→23:45)
[2021-02-26] MEDS: CLINDAMYCIN 600 MG in DEXTROSE 5% IN WATER 50 ML IV SCH ×2 (00:42→05:55)
[2021-02-26] MEDS ORDERED: DEXTROSE 50% 50 ML VIAL IV PRN ×3 (01:53→09:01)
[2021-02-26] MEDS ORDERED: ALTEPLASE 2 MG VIAL IV ONE (01:55)
[2021-02-26] MEDS: PYRIDOSTIGMINE BROMIDE 10 MG/2 ML AMPUL IM SCH ×5 (02:07→23:50)
[2021-02-26] MEDS: 0.9 % SODIUM CHLORIDE 1,000 ML IV SCH ×3 (02:07→18:03)
[2021-02-26] MEDS: oxyCODONE HCL 5 MG TABLET PO PRN ×2 (04:30→21:06)
[2021-02-26] MEDS: 0.9 % SODIUM CHLORIDE 10 ML SYRINGE IV SCH ×4 (06:06→21:04)
[2021-02-26] MEDS ORDERED: 0.9 % SODIUM CHLORIDE 1,000 ML IV ONE (08:30)
[2021-02-26 08:56] LABS: ALT/SGPT 25 U/L (<40); AST/SGOT 18 U/L (<32); Albumin 2.4 gm/dL (3.2-5.2); Albumin/Globulin Ratio 0.8 (1.0-2.3); Alkaline Phosphatase 95 U/L (39-117); Bilirubin,Direct < 0.2 mg/dL (0-0.3); Bilirubin,Total 0.3 mg/dL (0.1-1.0); Blood Urea Nitrogen 12 mg/dL (6-20); Calcium 8.6 mg/dL (8.6-10.4); Carbon Dioxide 30 mmol/L (22-30); Chloride 101 mmol/L (96-108); Glomerular Filtration Rate 106; Glucose 115 mg/dL (70-105); Lactate Dehydrogenase 307 U/L (135-225); Phosphorous 2.6 mg/dL (2.5-4.5); Triglycerides 242 mg/dL (<150); Uric Acid 1.4 mg/dL (2.5-8.0)
[2021-02-26] MEDS ORDERED: CALCIUM GLUCONATE IV SCH ×2 (09:00→13:00)
[2021-02-26] MEDS: DULoxetine 30 MG CAPSULE PO SCH (09:00)
[2021-02-26] MEDS: LEVOTHYROXINE 100 MCG TABLET PO SCH (09:00)
[2021-02-26] MEDS: predniSONE 20 MG TABLET PO SCH (09:00)
[2021-02-26] MEDS ORDERED: [UNRECOGNIZED DRUG - OTHER] IV SCH (09:00)
[2021-02-26] MEDS: GABAPENTIN 300 MG CAPSULE PO SCH (09:00)
[2021-02-26] MEDS: MAGNESIUM OXIDE 400 MG TABLET PO SCH (09:00)
[2021-02-26] MEDS: METOPROLOL SUCCINATE 50 MG TAB.XL.24H PO SCH (09:00)
[2021-02-26] MEDS ORDERED: MAGNESIUM SULFATE IV SCH ×2 (09:00→13:00)
[2021-02-26] MEDS: APIXABAN 5 MG TABLET PO SCH (09:00)
[2021-02-26] MEDS ORDERED: POTASSIUM CHLORIDE IV SCH ×2 (09:00→13:00)
[2021-02-26] MEDS: metFORMIN 500 MG TABLET PO SCH ×2 (09:00→15:01)
[2021-02-26] MEDS: DOCUSATE SODIUM 100 MG CAPSULE PO SCH (09:00)
[2021-02-26] MEDS: INSULIN GLARGINE, HUMAN 1 UNIT/0.01 ML SQ SCH (09:00)
[2021-02-26] MEDS ORDERED: MVI IV SCH (09:00)
[2021-02-26] MEDS: FERROUS SULFATE 325 MG TABLET PO SCH ×3 (09:00→16:23)
[2021-02-26] MEDS ORDERED: VANCOMYCIN 1,500 MG in 0.9 % SODIUM CHLORIDE 500 ML IV SCH (09:00)
[2021-02-26] MEDS ORDERED: NYSTATIN CRM 1 DOSE TUBE TOPICAL PRN (09:01)
[2021-02-26] MEDS ORDERED: VANCOMYCIN PER PHARMACY IV SCH (09:01)
[2021-02-26] MEDS ORDERED: ONDANSETRON 4 MG/2 ML VIAL IV PRN (09:01)
[2021-02-26] MEDS ORDERED: ONDANSETRON 4 MG ODT TABLET SL PRN (09:01)
[2021-02-26] MEDS ORDERED: SIMETHICONE 80 MG TAB.CHEW PO PRN (09:01)
[2021-02-26] MEDS ORDERED: PROMETHAZINE 25 MG TABLET PO PRN (09:01)
[2021-02-26] MEDS ORDERED: 0.9 % SODIUM CHLORIDE 1,000 ML IV SCH (09:01)
[2021-02-26] MEDS ORDERED: TPN PER PHARMACY IV SCH (09:01)
[2021-02-26] MEDS ORDERED: CYCLOBENZAPRINE 10 MG TABLET PO PRN (09:01)
[2021-02-26 09:10] LABS: Basophils # (Auto) 0.05 K/mcL (0.00-0.20); Basophils % (Auto) 0.4 % (0.0-2.0); Eosinophils # (Auto) 0.16 K/mcL (0.00-0.70); Eosinophils % (Auto) 1.3 % (0.0-7.0); Hematocrit 39.1 % (36.0-48.0); Hemoglobin 12.7 g/dL (12.0-15.0); Lymphocytes # (Auto) 1.09 K/mcL (1.50-4.80); Lymphocytes % (Auto) 8.8 % (15.0-49.0); Mean Cell Volume 92.4 fL (80.0-100.0); Mean Corpuscular HGB Conc 32.5 g/dL (31.0-36.0); Mean Platelet Volume 10.2 fL (7.4-10.4); Monocytes # (Auto) 0.53 K/mcL (0.10-0.90); Monocytes % (Auto) 4.3 % (1.0-12.0); Neutrophils % (Auto) 85.2 % (38.0-78.0); Platelet Count 179 K/mcL (140-440); RBC 4.23 M/mcL (4.00-5.20); Red Cell Distribution Width 14.6 % (11.5-14.5); WBC 12.4 K/mcL (4.5-11.0)
--- NOTE | 2021-02-26 10:10 | XRay Report ---
HISTORY: Central venous catheter insertion, cold, flu symptoms, evaluate for pneumonia FINDINGS: A right subclavian catheter has been inserted. The tip is near the boundary of the superior vena cava and right atrium. There is no pneumothorax or widening of the mediastinum. There is an indwelling left-sided Port-A-Cath placed through the left subclavian vein with the tip in the right atrium. Lung findings are small due to poor inspiration. There are thin linear bands of scar or discoid atelectasis in both lung bases. There is a calcified granuloma in the right lower thorax. Heart size is normal. There is no congestive heart failure. No free intra-abdominal air is present. IMPRESSION: No evidence of pneumonia. No complication following right subclavian catheter insertion Interpreted and Authenticated by: Zay Juarez 02/26/21
--- NOTE | 2021-02-26 10:27 | XRay Report ---
HISTORY: Abdominal pain, evaluate for bowel obstruction FINDINGS: The bowel pattern is normal without evidence of obstruction or ileus. There is no apparent soft tissue mass. There are clips in the gallbladder fossa and phleboliths in the pelvis. Disc space narrowing is present at L4-5. IMPRESSION: Normal bowel pattern Interpreted and Authenticated by: Zay Juarez 02/26/21
[2021-02-26] MEDS ORDERED: MAGNESIUM SULFATE 4 GM/100 ML BAG IV ONE (10:33)
--- NOTE | 2021-02-26 10:39 | Internal Medicine Consult Note ---
HPI Data of Consult Primary Care Provider: Douglas Megan Garland Consult Narrative cc:: CC: Bertha Currie MD Patient admitted on the for acute on chronic anemia hyperglycemia and dehydration. Apparently she was not taking her home anticoagulation and insulin as well. She was recently admitted for staph epidermidis bacteremia with port salvage therapy and also was discharged on TPN. Looks like she received 3 units of blood over the first few days. Her anemia is stable at this time. She was restarted on insulin and her blood sugars much better controlled. She is received IV fluid hydration. She is found to have staph epidermidis bacteremia again likely due to indwelling device, port . Port to be removed today by Dr. Currie. Culture results did show resistance to penicillins. She is currently on vancomycin and clindamycin per surgery. Patient had decreased blood pressure and hypoglycemia overnight patient is transferred to ICU. She was tachycardic as well. Blood pressure and tachycardia improved with fluid boluses. Her mentation is poor since she has been here. She was home for a week prior to this with her Steve and her mentation never seem to really improved. She is mention to her that she is tired and exhausted and mentioned him going to [place] which Steve said implied euthanasia. Had a conversation with him about hospice discussion and he was amenable. Meantime the port will be removed today and will repeat blood cultures. continue current therapies, Review of Systems: denies headache/fever/chills/nausea/vomiting/chest or abdominal pain/cough/dyspnea/diarrhea. Otherwise see above. PFSH PFSH All Active Problems (Updated 02/21/21 @ 18:54 by Bertha Currie MD) Chronic iron deficiency anemia (Acute) Anemia (Acute) Acute hyperglycemia (Acute) Acute dehydration (Acute) SBO (small bowel obstruction) (Acute) 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 (Acute) Myasthenia gravis (Chronic) Polyglandular autoimmune syndrome (Chronic) Sarcoidosis (Chronic) Hypothyroidism (Chronic) Hypertension (Chronic) Abnormal liver enzymes (Chronic) Chronic use of steroids (Chronic) Recurrent intestinal obstruction (Chronic) Obesity, Class II, BMI 35-39.9 (Chronic) Diabetes mellitus type 2, uncontrolled (Chronic) Chronic intestinal pseudo-obstruction (Chronic) Abdominal pain (Chronic) Chronic, continuous use of opioids (Chronic) LA (obstructive sleep apnea) (Chronic) Recurrent abdominal pain (Chronic) Low blood magnesium level (Chronic) Hyponatremia (Acute) Elevated LFTs (Acute) Small bowel obstruction (Acute) Dehydration (Acute) Primary chronic pseudo-obstruction of small intestine (Acute) UTI (urinary tract infection) (Acute) Hypocalcemia (Acute) Nausea & vomiting (Acute) Severe sepsis (Acute) 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 (Acute) Acute UTI (Acute) Hypercalcemia (Acute) COVID-19 (Acute) Acute kidney injury (Acute) Hypercalcemia (Acute) Hyponatremia (Acute) Elevated serum creatinine (Acute) Low back pain (Acute) Partial small bowel obstruction (Acute) Nausea and vomiting (Acute) Hypokalemia (Acute) Diabetes mellitus (Acute) Recurrent intestinal obstruction (Acute) Intractable abdominal pain (Acute) Intractable vomiting with nausea (Acute) Small bowel ischemia (Acute) Pneumatosis intestinalis (Acute) Right knee sprain (Acute) Generalized weakness (Acute) Hypercalcemia (Acute) Acute hyperkalemia (Acute) Leukocytosis (Acute) Acidosis, lactic (Acute) Fever of unknown origin (Acute) Metabolic acidosis with normal anion gap and failure of bicarbonate regeneration (Acute) Hyponatremia with decreased serum osmolality (Acute) Ileostomy status (Acute) Hypophosphatemia (Acute) Bacteremia (Acute) Hypoparathyroidism, unspecified (Acute) Medical History Abdominal pain Abdominal pain Abdominal wound dehiscence Abnormal liver enzymes Achalasia and cardiospasm Acute respiratory insufficiency Adverse reaction to drug Anaphylaxis Bowel obstruction 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 If no mechanical obstruction, patient says cholinesterase inhibitors usually works Linzess is another possibility Octreotide has helped in children Chronic use of steroids for myasthenia gravis; 10+ years, she started using steroids in 2002. Chronic, continuous use of opioids Need to minimize or stop as they are confusing the bowel issue Constipation due to neurogenic bowel Constipation due to pain medication therapy Dehydration Dehydration Diabetes mellitus type 2, uncontrolled Encounter for care related to Port-a-Cath Fecal impaction Foot sprain Hypercalcemia Hypertension Hypocalcemia Hyponatremia Hypothyroidism Over Rx, decrease to synthroid 200 ug per day and follow TSH and T4 Ileus Infiltrate of lung present on imaging of chest Intractable vomiting Lactic acid acidosis Low blood magnesium level Myasthenia gravis Prednisone dependent at 20 mg daily. In association with thyoma ~20 yrs [employer] Cholinesterase inhibitor IM and/or PO Nausea Nausea & vomiting Nausea & vomiting Nausea and vomiting Obesity, Class II, BMI 35-39.9 Chronic. Obstruction of descending colon LA (obstructive sleep apnea) Pancreatitis Parastomal hernia with obstruction, without gangrene Partial intestinal obstruction, unspecified as to cause Partial small bowel obstruction Pneumonia Polyglandular autoimmune syndrome I see no dental or nail dystrophy to suggest Type 1 polyglandular failure which is the only type associated with HYPOPARATHYROIDISM and no autoimmune adrenalitis. I have not read that MG is a feature and it's not clear that her thyroid disease is autoimmune in nature. So I'm skeptical of this Dx Primary chronic pseudo-obstruction of large intestine Pseudoobstruction of colon Pyelonephritis Recurrent abdominal pain Recurrent intestinal obstruction many recurrences; many surgical interventions Sarcoidosis Said to be present due to "granuloma's on hands" Check RADHA level On steroids forever for her MG Sepsis Sepsis associated hypotension Sepsis with acute hypoxic respiratory failure Severe sepsis Sigmoid volvulus Sinus tachycardia Sinus tachycardia Small bowel obstruction Small bowel obstruction Small bowel obstruction Small bowel obstruction Small bowel obstruction Small bowel obstruction Small bowel obstruction due to adhesions Small bowel obstruction due to postoperative adhesions Small bowel obstruction, partial Supraventricular tachycardia UTI (urinary tract infection) UTI (urinary tract infection) Volvulus of sigmoid colon Surgical History History of exploratory laparotomy 10/17/2017-with adhesiolysis History of exploratory laparotomy 12/01/2017-with adhesiolysis History of exploratory laparotomy 07/18/2018 History of exploratory laparotomy 08/10/2018-Exploratory laparotomy with small bowel adhesiolysis and incisional hernia repair with mesh graft History of exploratory laparotomy 11/30/2020-with total intraabdominal adhesiolysis S/P ileostomy Family History Father CAD (coronary artery disease) Mother CAD (coronary artery disease) Grandfather CVA (cerebral vascular accident) Grandmother CVA (cerebral vascular accident) Social History alcohol intake frequency: does not drink substance use type: does not use MEDS/ALLERGIES Home Medications and Allergies Home Medications Medication Instructions Recorded Confirmed Type insulin glargine 10 unit SQ BID 09/30/19 02/21/21 History ondansetron 4 mg SL Q4HP PRN 12/24/19 02/21/21 History promethazine 25 mg CO Q6HP PRN 12/24/19 02/21/21 History pyridostigmine bromide 5 mg/mL 10 mg IM Q6H #240 ml 01/04/20 02/21/21 Rx injection solution metformin 500 mg PO BIDAC 07/12/20 02/21/21 History prednisone 20 mg PO QAMCC 09/14/20 02/21/21 History filter needles 19 x 1 /2" #100 each 10/19/20 02/21/21 Rx promethazine 25 mg tablet 25 mg PO Q6HP PRN #60 tab 11/24/20 02/21/21 Rx Accu-Chek 1 each FS ACHS 12/14/20 02/21/21 History metoprolol succinate 50 mg PO DAILY 12/27/20 02/21/21 History Eliquis 5 mg PO BID 150 Days #60 tab 01/09/21 02/21/21 Rx levothyroxine 200 mcg PO QAMAC #30 tab 01/09/21 02/21/21 Rx octreotide acetate 100 mcg SUBCUT TID #25 ml 01/09/21 02/21/21 Rx Fleet Enema 118 ml CO DAILYP PRN 01/27/21 02/21/21 History acetaminophen 1,000 mg PO Q6H PRN 01/27/21 02/21/21 History alum-mag hydroxide-simeth [Maalox 30 ml PO DAILYP PRN 01/27/21 02/21/21 History Maximum Strength] bisacodyl [Dulcolax (bisacodyl)] 10 mg CO QDAY PRN 01/27/21 02/21/21 History cyclobenzaprine 10 mg PO BID PRN 01/27/21 02/21/21 History gabapentin 300 mg PO BID 01/27/21 02/21/21 History magnesium hydroxide [Milk of 400 mg PO QDAY PRN 01/27/21 02/21/21 History Magnesia] promethazine 50 mg PO DAILY PRN 01/27/21 02/21/21 History simethicone 80 mg PO QDAY PRN 01/27/21 02/21/21 History Glucagon (HCl) Emergency Kit 1 mg IM Q15M PRN 02/07/21 02/21/21 History duloxetine 30 mg PO BID 02/07/21 02/21/21 History calcitriol 0.25 mcg PO TUTHSA 02/21/21 02/21/21 History magnesium 1,000 mg PO QDAY 02/21/21 02/21/21 History Allergies Allergy/AdvReac Type Severity Reaction Status Date / Time Sulfa (Sulfonamide Allergy Severe Anaphylaxis Verified 02/21/21 10:06 Antibiotics) adhesive tape AdvReac Mild Blister Verified 02/21/21 10:06 metoclopramide [From Reglan] AdvReac Mild Anxiety Verified 02/21/21 10:06 steri strips AdvReac Mild Blister Uncoded 12/02/19 06:48 EXAM Constitutional Vitals: Temp Pulse Resp BP Pulse Ox 102 F H 138 H 28 H 81/50 93 02/26/21 06:55 02/26/21 06:55 02/26/21 06:55 02/26/21 07:06 02/26/21 06:55 DATA Data Completed and Pending Labs: Labs from last 24 hours 02/26/21 02/26/21 02/26/21 07:56 07:56 07:56 WBC RBC Hgb Hct MCV MCH MCHC RDW Plt Count MPV Neut % (Auto) Lymph % (Auto) [place] % (Auto) Eos % (Auto) Baso % (Auto) Lymph # (Auto) [place] # (Auto) Eos # (Auto) Baso # (Auto) Absolute Neutrophils VBG Lactic Acid 2.7 H Sodium 138 Potassium 3.5 Chloride 101 Carbon Dioxide 30 Anion Gap 7.0 L BUN 12 Creatinine 0.5 L GFR Calculation 106 Glucose 115 H Uric Acid 1.4 L Calcium 8.6 Phosphorus 2.6 Magnesium 1.4 L Total Bilirubin 0.3 Direct Bilirubin < 0.2 GGT 37 H AST 18 ALT 25 Alkaline Phosphatase 95 Lactate Dehydrogenase 307 H Total Protein 5.4 L Albumin 2.4 L Globulin 3.0 Albumin/Globulin Ratio 0.8 L Triglycerides 242 H Vancomycin Trough 15.4 02/26/21 02/26/21 07:56 05:50 WBC 12.4 H RBC 4.23 Hgb 12.7 Hct 39.1 MCV 92.4 MCH 30.0 MCHC 32.5 RDW 14.6 H Plt Count 179 MPV 10.2 Neut % (Auto) 85.2 H Lymph % (Auto) 8.8 L [place] % (Auto) 4.3 Eos % (Auto) 1.3 Baso % (Auto) 0.4 Lymph # (Auto) 1.09 L [place] # (Auto) 0.53 Eos # (Auto) 0.16 Baso # (Auto) 0.05 Absolute Neutrophils 10.55 H VBG Lactic Acid Sodium TNP Potassium TNP Chloride TNP Carbon Dioxide TNP Anion Gap TNP BUN TNP Creatinine TNP GFR Calculation TNP Glucose TNP Uric Acid TNP Calcium TNP Phosphorus TNP Magnesium TNP Total Bilirubin TNP Direct Bilirubin TNP GGT TNP AST TNP ALT TNP Alkaline Phosphatase TNP Lactate Dehydrogenase TNP Total Protein TNP Albumin TNP Globulin TNP Albumin/Globulin Ratio TNP Triglycerides TNP Vancomycin Trough Preliminary micro results at discharge 02/21/21 15:16 Blood Culture - Preliminary Blood Staphylococcus epidermidis A/P Narrative A/P Narrative: A: *Bactermia (Staph epidermidis): 2/2 indwelling catheter, port -now removed (02/26) -febrile this morning *Acute on chronic anemia: Stable, status post blood transfusions on admit *DM w/hyperglycemia: Now better controlled, was not taking insulin at home *Electrolyte imbalance/hypomagnesemia: *History of recurrent SBO follows up with Dr. Currie surgery. 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 Plan: -cont vanco for bacteremia, once indwelling device removed (recommend 7-day therapy from neg BC - pending repeat BC) -will d/c clinda -echo pending -IVF's/electrolytes/bowel per surgery -cont home prednisone(IV if unable to take PO)/BB. stress-dose steroids today -cont levothyroxine (IV if unable to take PO) -basal and SSI -PT as tolerated -Discharge planning to SNF once clinically stable -hospice consult -ppx: apixaban Time Spent With Patient Time: Total time spent is greater than 50% in coordination of care (as documented) at patient's floor/unit and/or counseling patient:
[2021-02-26] MEDS ORDERED: HYDROCORTISONE SOD SUCC 100 MG VIAL IV ONE (11:18)
[2021-02-26] MEDS ORDERED: LEVOTHYROXINE 100 MCG VIAL IV ONE (11:19)
[2021-02-26] MEDS ORDERED: NOREPINEPHRINE BITARTRATE 16 MG in 0.9 % SODIUM CHLORIDE 234 ML IV SCH (12:00)
[2021-02-26] MEDS: 0.9 % SODIUM CHLORIDE 250 ML IV SCH (12:00)
[2021-02-26] MEDS ORDERED: CLINDAMYCIN 600 MG in DEXTROSE 5% IN WATER 50 ML IV SCH (12:00)
[2021-02-26] MEDS ORDERED: [UNRECOGNIZED DRUG - OTHER] IV SCH (13:00)
[2021-02-26 13:04] LABS: Anisocytosis 1+ (None Seen); Band Neutrophils % 21 % (0-10); Eosinophils % (Manual) 1 % (0-7); Lymphocytes % 4 % (15-49); Monocytes % (Manual) 6 % (1-12); Platelet Estimate NORMAL (Normal); RBC Morphology ABNORMAL (Normal); Reactive Lymphocytes 3 % (0-2); Segmented Neutrophils % 65 % (38-78)
[2021-02-26 14:29] LABS: Appearance,Urine CLEAR (Clear); Bilirubin,Urine Negative (Negative); Color,Urine YELLOW; Culture Indicated,Urine No; Glucose,Urine (UA) Negative (Negative); Ketones,Urine Negative (Negative); Leukocyte Esterase,Urine Negative /ug (Negative); Nitrate,Urine Negative (Negative); Protein,Urine Negative (Negative); Specific Gravity,Urine 1.012 (1.000-1.035); Urine Blood Negative (Negative); Urobilinogen,Urine Negative
[2021-02-26] MEDS: VANCOMYCIN 1,500 MG in 0.9 % SODIUM CHLORIDE 500 ML IV SCH (15:00)
[2021-02-26] MEDS ORDERED: ALBUMIN HUMAN 12.5 GM/50 ML BAG IV ONE (15:40)
[2021-02-26 18:32] LABS: Basophils # (Auto) 0.07 K/mcL (0.00-0.20); Basophils % (Auto) 0.3 % (0.0-2.0); Eosinophils # (Auto) 0.16 K/mcL (0.00-0.70); Eosinophils % (Auto) 0.8 % (0.0-7.0); Hematocrit 36.2 % (36.0-48.0); Hemoglobin 11.5 g/dL (12.0-15.0); Lymphocytes # (Auto) 1.19 K/mcL (1.50-4.80); Lymphocytes % (Auto) 5.7 % (15.0-49.0); Mean Corpuscular HGB Conc 31.8 g/dL (31.0-36.0); Mean Platelet Volume 10.9 fL (7.4-10.4); Monocytes # (Auto) 1.06 K/mcL (0.10-0.90); Monocytes % (Auto) 5.1 % (1.0-12.0); Neutrophils % (Auto) 88.1 % (38.0-78.0); Platelet Count 237 K/mcL (140-440); RBC 4.02 M/mcL (4.00-5.20); Red Cell Distribution Width 14.7 % (11.5-14.5); WBC 20.9 K/mcL (4.5-11.0)
[2021-02-26 18:55] LABS: ALT/SGPT 26 U/L (<40); AST/SGOT 22 U/L (<32); Albumin 2.1 gm/dL (3.2-5.2); Albumin/Globulin Ratio 0.7 (1.0-2.3); Alkaline Phosphatase 103 U/L (39-117); Bilirubin,Direct < 0.2 mg/dL (0-0.3); Bilirubin,Total 0.2 mg/dL (0.1-1.0); Blood Urea Nitrogen 13 mg/dL (6-20); Calcium 7.8 mg/dL (8.6-10.4); Carbon Dioxide 28 mmol/L (22-30); Chloride 105 mmol/L (96-108); Globulin 3.1 gm/dL (2.2-3.7); Glomerular Filtration Rate 100; Glucose 104 mg/dL (70-105); Lactate Dehydrogenase 300 U/L (135-225); Phosphorous 2.9 mg/dL (2.5-4.5); Triglycerides 254 mg/dL (<150); Uric Acid 2.2 mg/dL (2.5-8.0)
--- NOTE | 2021-02-26 19:15 | General Surgery Progress Note ---
SUBJECTIVE Subjective Patient information: Note initiated : 02/26/21 at 7:12 pm Service Date, if different from initiated Date: [] Patient: Dayanna Guo 60 y/o F admitted on 02/21/21 for DKA, Cold/Flu. Chief Complaint: [] Principal diagnosis: hyperglycemia;nausea and vomiting; bacteremia Interval history: Patient became somewhat listless during the night and had hypotension. She also developed fever to 102degrees. Associated with this she had increased tachycardia. She has been on Cleocin and vancomycin. She was given a liter of saline and had transient increase in blood pressure but then her blood pressure dropped to the 70s. She has been started on low-dose Levophed. Her urine output has remained stable. It is noted that her white blood count did increase to 12.4. Her hemoglobin remained stable. Constitutional Vitals: Vital Signs Temp Pulse Resp BP Pulse Ox 98.9 F 138 H 17 146/75 94 02/26/21 17:31 02/26/21 06:55 02/26/21 18:31 02/26/21 18:31 02/26/21 18:31 Period Temp Pulse Resp BP Sys/Archuleta Pulse Ox Last 24 Hr 97.1 F-102 F 138 8-28 72-172/42-97 91-98 Intake and Output 02/26/21 02/26/21 02/26/21 05:59 13:59 21:59 Intake Total 1617 2754 1278 Output Total 155 192 2446 Balance 838 2424 118 Intake & Output: Intake & Output 02/26/21 02/26/21 02/26/21 05:59 13:59 21:59 Intake Total 1617 2754 1278 Output Total 290 597 8974 Balance 838 2424 118 Intake: IV 1617 2754 1278 Sodium Chloride 0.9% 1,000 ml @ 1000 2000 1000 150 mls/hr IV .Q6H40M [facility] Rx#: [id number] Calcium Gluconate 20 Meq 463 Magnesium Sulfate 16.24 Meq Potassium Chloride 10 Meq Infuvite Adult 10 ml Potassium Phosphate 40 Meq Sodium Chloride 70 Meq In Clinimix 5%- 20% Solution 1,000 ml @ 45 mls/ hr IV DAILY@1300 [facility] Rx#: [id number] Cleocin 600 mg In Dextrose 5% 54 54 in Water 50 ml @ 100 mls/hr IV Q6H [facility] Rx#:[id number] Levophed 16 mg In Sodium 28 Chloride 0.9% 234 ml @ 10 MCG/ MIN 9.375 mls/hr IV Q24H [facility] Rx #:[id number] Vancomycin 1,500 mg In Sodium 500 Chloride 0.9% 500 ml @ 333.3 mls/hr IV DAILY [facility] Rx#: [id number] Output: Urine Catheter Amount 330 1160 Void Amount 75 # of times incontinent of urine 4 Stool 700 Other: Meal Lunch Dinner Percent of Meal Consumed 0% 0% Urine Appearance Clear Clear Clear Urine Color Bright Yellow Dark Yellow Pale Uretheral (Martinez) Bright Yellow Urine Odor Normal Normal Stool Color Green Stool Consistency Liquid Head Head exam: Present atraumatic, normal inspection and normocephalic Eye Eye exam: Present EOMI Pupils: Present normal accommodation and PERRL ENT ENT exam: Present mucous membranes moist and normal exam Neck Neck exam: Present full ROM; Absent tenderness and thyromegaly Respiratory Respiratory exam: Present normal respiratory exam and CTAB; Absent rales, rhonchi and wheezes Cardiovascular Cardiovascular exam: Present +S1, +S2 and tachycardia Additional comments: Recurrent hypotensive episode with sinus bradycardia GI/Abdominal GI/Abdominal exam: Present normal bowel sounds and soft; Absent distended Additional comments: Stoma continues to function normally Extremities Exam Extremities exam: Present full ROM, tenderness and neurovascular intact Neurological Exam Additional comments: Patient is very somnolent and lethargic but she reacts to questions and answers questions appropriately Psychiatric Psychiatric exam: Present agitated, anxious and depressed A/P Assessment and plan (1) Chronic iron deficiency anemia: Status: Acute (2) Acute hyperglycemia: Status: Acute (3) Acute dehydration: Status: Acute (4) Myasthenia gravis: Status: Chronic Comment: Prednisone dependent at 20 mg daily. In association with thyoma ~20 yrs [employer] Cholinesterase inhibitor IM and/or PO (5) Polyglandular autoimmune syndrome: Status: Chronic Comment: I see no dental or nail dystrophy to suggest Type 1 polyglandular failure which is the only type associated with HYPOPARATHYROIDISM and no autoimmune adrenalitis. I have not read that MG is a feature and it's not clear that her thyroid disease is autoimmune in nature. So I'm skeptical of this Dx (6) Chronic use of steroids: Status: Chronic Comment: for myasthenia gravis; 10+ years, she started using steroids in 2002. (7) Diabetes mellitus type 2, uncontrolled: Status: Chronic Qualifiers: Coma presence: unspecified whether coma present (8) Chronic, continuous use of opioids: Status: Chronic Comment: Need to minimize or stop as they are confusing the bowel issue (9) Primary chronic pseudo-obstruction of small intestine: Status: Acute Narrative A/P Narrative: IV fluid volume increased Levophed drip instituted to maintain blood pressure Discussed with patient and her the need to remove her Port-A-Cath system Echocardiogram has been ordered to rule out valvular vegetations Time Spent With Patient Time: Total time spent is greater than 50% in coordination of care (as documented) at patient's floor/unit and/or counseling patient:
--- NOTE | 2021-02-26 19:26 | General Surgery Procedure Note ---
Date of procedure: Note initiated : 02/26/21 at 7:21 pm Service Date, if different from initiated Date: [] Pre-op diagnosis: Port-A-Cath with septicemia Post-op diagnosis: other (Port-A-Cath with septicemia; retained Port-A-Cath catheter) Procedure: Removal of Port-A-Cath chamber and attempt at removal of catheter Findings: The chamber appears intact however the catheter is densely adherent and cannot be removed with maximum traction at the level of the subclavian vein. Anesthesia: local (1% lidocaine with epinephrine) Surgeon: Bertha Currie Pathology: other (Port-A-Cath chamber sent for culture) Description of procedure: The patient's chest was prepped with ChloraPrep. Local infiltration over the chamber was carried out and the old incision was used. Incision was extended down to the capsule of the chamber and the chamber was removed from the pocket. An attempt was made to remove the catheter but even with maximum traction it appeared to be densely adherent at the level of the subclavian. About 4 cm of the catheter was extracted. Another incision was made in the subclavicular area and dissection was carried out close to the subclavian vein. Maximum traction at this level was not successful in removal of the catheter. Because of the potential for the catheter fracturing it was decided to leave the residual catheter in place and sterilely cover it. The patient will need to have the catheter investigated and possibly removed by the inserter promotional item or thoracic physician Condition: critical Disposition: ICU
[2021-02-26] MEDS: HYDROCORTISONE SOD SUCC 100 MG VIAL IV SCH (20:12)
--- NOTE | 2021-02-26 20:28 | XRay Report ---
HISTORY: Unsuccessful attempt at removing a Port-A-Cath FINDINGS: The reservoir for the left-sided Port-A-Cath has been removed. The catheter is still intact and unchanged in position. It passes through the left subclavian vein and superior vena cava into the top of the right atrium. The recently inserted right subclavian catheter is well-positioned. There is no widening in the mediastinum, pneumothorax or pleural effusion. Thin band of atelectasis or scar is present laterally in the left lower thorax. The heart size is normal. IMPRESSION: Stable placement of an intact Port-A-Cath catheter, extending into the right atrium Interpreted and Authenticated by: Zay Juarez 02/26/21
[2021-02-26] MEDS ORDERED: GABAPENTIN 300 MG CAPSULE PO SCH (21:00)
[2021-02-26] MEDS ORDERED: INSULIN GLARGINE, HUMAN 1 UNIT/0.01 ML SQ SCH (21:00)
[2021-02-26] MEDS ORDERED: SENNOSIDES 1 TABLET PO SCH (21:00)
[2021-02-26] MEDS ORDERED: DOCUSATE SODIUM 100 MG CAPSULE PO SCH (21:00)
[2021-02-26] MEDS ORDERED: APIXABAN 5 MG TABLET PO SCH (21:00)
[2021-02-26] MEDS ORDERED: DULoxetine 30 MG CAPSULE PO SCH (21:00)
[2021-02-27] MEDS: INSULIN LISPRO 1 UNIT/0.01 ML UNIT SQ SCH ×2 (00:09→08:00)
[2021-02-27] MEDS: 0.9 % SODIUM CHLORIDE 250 ML IV SCH ×4 (00:39→06:43)
[2021-02-27] MEDS: HYDROmorphone 0.5 MG/0.5 ML SYRINGE IV PRN ×2 (00:53→02:41)
[2021-02-27] MEDS: oxyCODONE HCL 5 MG TABLET PO PRN (01:50)
[2021-02-27 02:34] LABS: POC Calcium, Ionized 0.99 mmEq/L (1.16-1.32); POC Creatinine 0.6 mg/dL (0.6-1.2); POC Potassium 4.1 mEql/L (3.3-5.1)
[2021-02-27] MEDS ORDERED: 0.9 % SODIUM CHLORIDE 250 ML IV SCH ×4 (03:00→08:43)
[2021-02-27] MEDS: HYDROCORTISONE SOD SUCC 100 MG VIAL IV SCH (03:52)
[2021-02-27] MEDS ORDERED: ONDANSETRON 4 MG/2 ML VIAL ONE (06:09)
[2021-02-27] MEDS ORDERED: LIDOCAINE HCL/PF 100 MG/5 ML SYRINGE IV ONE (06:09)
[2021-02-27] MEDS ORDERED: KETAMINE 50 MG/ML ML ONE (06:09)
[2021-02-27] MEDS ORDERED: PHENYLEPHRINE 10 MG/ML VIAL ONE (06:09)
[2021-02-27] MEDS ORDERED: DEXAMETHASONE 10 MG/ML VIAL ONE (06:09)
[2021-02-27] MEDS ORDERED: PROPOFOL 200 MG/20 ML VIAL IV ONE (06:09)
[2021-02-27] MEDS ORDERED: TRANEXAMIC ACID 1,000 MG/10 ML VIAL IV ONE (06:30)
[2021-02-27] MEDS ORDERED: LEVOTHYROXINE 100 MCG TABLET PO SCH (07:30)
--- NOTE | 2021-02-27 07:50 | Internal Med Progress Note ---
SUBJECTIVE Subjective Patient information: Note initiated : 02/27/21 at 7:48 am Service Date, if different from initiated Date: [] Patient: Dayanna Guo 60 y/o F admitted on 02/21/21 for DKA, Cold/Flu. Chief Complaint: [] Principal diagnosis: hyperglycemia;nausea and vomiting; bacteremia Interval history: Patient admitted on the for acute on chronic anemia hyperglycemia and dehydration. Apparently she was not taking her home anticoagulation and insulin as well. She was recently admitted for staph epidermidis bacteremia with port salvage therapy and also was discharged on TPN. Looks like she received 3 units of blood over the first few days. Her anemia is stable at this time. She was restarted on insulin and her blood sugars much better controlled. She is received IV fluid hydration. She is found to have staph epidermidis bacteremia again likely due to indwelling device, port . Port to be removed today by Dr. Currie. Culture results did show resistance to penicillins. She is currently on vancomycin and clindamycin per surgery. Patient had decreased blood pressure and hypoglycemia overnight patient is transferred to ICU. She was tachycardic as well. Blood pressure and tachycardia improved with fluid boluses. Her mentation is poor since she has been here. She was home for a week prior to this with her Steve and her mentation never seem to really improved. She is mention to her that she is tired and exhausted and mentioned him going to [place] which Steve said implied euthanasia. Had a conversation with him about hospice discussion and he was amenable. Meantime the port will be removed today and will repeat blood cultures. continue current therapies, 02/27 Patient developed a large hematoma over port site and had declining blood pressure. She required surgical evacuation of the hematoma and vasopressors. She is now off vasopressors. She is awake and alert. She will likely need to be stent where vascular surgery is available to remove the main portion of the catheter. Review of Systems: denies headache/fever/chills/nausea/vomiting/chest or abdominal jhon n/cough/dyspnea/diarrhea. Otherwise see above. Constitutional Vitals: Vital Signs Temp Pulse Resp BP Pulse Ox 96.1 F L 73 13 78/56 96 02/27/21 07:38 02/26/21 21:10 02/27/21 07:38 02/27/21 07:38 02/27/21 07:38 Period Temp Pulse Resp BP Sys/Archuleta Pulse Ox Last 24 Hr 95.9 F-99.1 F 73 7-24 52-152/30-109 91-99 Intake and Output 02/26/21 02/27/21 02/27/21 21:59 05:59 13:59 Intake Total 1406 1820 376 Output Total 1460 320 Balance -54 1500 376 Weight 108 kg Intake & Output: Intake & Output 02/26/21 02/27/21 02/27/21 21:59 05:59 13:59 Intake Total 1406 1820 376 Output Total 1460 320 Balance -54 1500 376 Weight 108 kg Intake: IV 1286 1400 51 Sodium Chloride 0.9% 1,000 ml @ 1000 1000 150 mls/hr IV .[id number] [facility] Rx#: [id number] Sodium Chloride 0.9% 250 ml @ 244 51 20 mls/hr IV .[id number] [facility] Rx#: [id number] Levophed 16 mg In Sodium 36 56 Chloride 0.9% 234 ml @ 10 MCG/ MIN 9.375 mls/hr IV Q24H [facility] Rx #:[id number] Oral 120 100 Blood Product 320 325 Output: Urine Catheter Amount 1460 270 Stool 50 Other: Meal Dinner Percent of Meal Consumed 0% Urine Appearance Clear Clear Uretheral (Martinez) Clear Urine Color Bright Yellow Bright Yellow Uretheral (Martinez) Bright Yellow Urine Odor Normal Stool Color Brown Stool Consistency Liquid Exam: General: awake, No acute Distress, obese Eyes/N/T: EOMI, Head/Neck: neck supple, CV: RRR, No murmurs, Pulm: Clear b/l, no wheezing/rhonchi/rales Abd: soft, nontender, +BS x4, ostomy Ext: no clubbing/cyanosis/mild b/l LE edema Neuro: Alert, no focal deficits, moves all extremities, Skin: warm/dry OBJ DATA Labs CBC & Chem 7: 02/27/21 02:24 02/26/21 17:15 Labs: Abnormal Lab Results 02/27/21 02/27/21 02/26/21 02:24 02:24 17:15 WBC Hgb 8.5 L POC Hct 25 L RDW MPV Neut % (Auto) Lymph % (Auto) Lymph # (Auto) [place] # (Auto) Band Neutrophils % Lymphocytes % Absolute Neutrophils Reactive Lymphocytes RBC Morphology Anisocytosis VBG Lactic Acid Sodium Anion Gap 5.0 L Creatinine Glucose POC Glucose 161 H Uric Acid 2.2 L Calcium 7.8 L POC WB Ioniz Calcium 0.99 L Magnesium Transferrin GGT 39 H Lactate Dehydrogenase 300 H C-Reactive Protein Total Protein 5.2 L Albumin 2.1 L Albumin/Globulin Ratio 0.7 L Triglycerides 254 H 02/26/21 02/26/21 02/26/21 17:15 07:56 07:56 WBC 20.9 H Hgb 11.5 L POC Hct RDW 14.7 H MPV 10.9 H Neut % (Auto) 88.1 H Lymph % (Auto) 5.7 L Lymph # (Auto) 1.19 L [place] # (Auto) 1.06 H Band Neutrophils % 21 H Lymphocytes % 4 L Absolute Neutrophils 18.43 H Reactive Lymphocytes 3 H RBC Morphology Abnormal A Anisocytosis 1+ A VBG Lactic Acid Sodium Anion Gap Creatinine Glucose POC Glucose Uric Acid Calcium POC WB Ioniz Calcium Magnesium Transferrin GGT Lactate Dehydrogenase C-Reactive Protein 8.20 H Total Protein Albumin Albumin/Globulin Ratio Triglycerides 02/26/21 02/26/21 02/26/21 07:56 07:56 07:56 WBC 12.4 H Hgb POC Hct RDW 14.6 H MPV Neut % (Auto) 85.2 H Lymph % (Auto) 8.8 L Lymph # (Auto) 1.09 L [place] # (Auto) Band Neutrophils % Lymphocytes % Absolute Neutrophils 10.55 H Reactive Lymphocytes RBC Morphology Anisocytosis VBG Lactic Acid 2.7 H Sodium Anion Gap 7.0 L Creatinine 0.5 L Glucose 115 H POC Glucose Uric Acid 1.4 L Calcium POC WB Ioniz Calcium Magnesium 1.4 L Transferrin GGT 37 H Lactate Dehydrogenase 307 H C-Reactive Protein Total Protein 5.4 L Albumin 2.4 L Albumin/Globulin Ratio 0.8 L Triglycerides 242 H 02/25/21 02/25/21 02/24/21 05:30 05:30 08:04 WBC Hgb POC Hct RDW MPV 11.0 H Neut % (Auto) Lymph % (Auto) Lymph # (Auto) 1.25 L [place] # (Auto) Band Neutrophils % Lymphocytes % Absolute Neutrophils Reactive Lymphocytes RBC Morphology Anisocytosis VBG Lactic Acid Sodium 130 L Anion Gap 7.0 L Creatinine Glucose 280 H 272 H POC Glucose Uric Acid 1.0 L 1.1 L Calcium 8.3 L POC WB Ioniz Calcium Magnesium Transferrin GGT 40 H Lactate Dehydrogenase 410 H 377 H C-Reactive Protein Total Protein 5.3 L Albumin 2.7 L 2.2 L Albumin/Globulin Ratio 0.8 L 0.7 L Triglycerides 387 H 334 H 02/21/21 12:05 WBC Hgb POC Hct RDW MPV Neut % (Auto) Lymph % (Auto) Lymph # (Auto) [place] # (Auto) Band Neutrophils % Lymphocytes % Absolute Neutrophils Reactive Lymphocytes RBC Morphology Anisocytosis VBG Lactic Acid Sodium Anion Gap Creatinine Glucose POC Glucose Uric Acid Calcium POC WB Ioniz Calcium Magnesium Transferrin 137 L GGT Lactate Dehydrogenase C-Reactive Protein Total Protein Albumin Albumin/Globulin Ratio Triglycerides Meds: Medications Apixaban (Apixaban 5 Mg Tablet) 5 mg PO BID [facility] Last Admin: 02/26/21 21:05 Dose: 5 mg Documented by: Calcitriol (Calcitriol 0.25 Mcg Capsule) 0.25 mcg PO TuThSa@0900 [facility] Cyclobenzaprine HCl (Cyclobenzaprine 10 Mg Tablet) 10 mg PO BIDP PRN PRN Reason: Muscle Pain Dextrose (Dextrose 50% 50 Ml Vial) 25 ml IV UD PRN PRN Reason: Hypoglycemia Dextrose (Dextrose 50% 50 Ml Vial) 0 ml IV UD PRN PRN Reason: Hypoglycemia Diagnostic Test (Pha) (Accu-Chek 1 Each Strip) 1 each FS Q6 [facility] Last Admin: 02/27/21 00:06 Dose: 1 each Documented by: Docusate Sodium (Docusate Sodium 100 Mg Capsule) 100 mg PO BID [facility] Last Admin: 02/26/21 21:02 Dose: 100 mg Documented by: Duloxetine HCl (Duloxetine 30 Mg Capsule) 30 mg PO BID [facility] Last Admin: 02/26/21 21:02 Dose: 30 mg Documented by: Ferrous Sulfate (Ferrous Sulfate 325 Mg Tablet) 325 mg PO TIDCC [facility] Last Admin: 02/26/21 16:23 Dose: Not Given Documented by: Gabapentin (Gabapentin 300 Mg Capsule) 300 mg PO BID [facility] Last Admin: 02/26/21 21:02 Dose: 300 mg Documented by: Heparin Sodium (Porcine) (Heparin Flush 10 Units/Ml 5 Ml Syringe) 2 ml IV Q12 [facility] Last Admin: 02/26/21 21:04 Dose: 2 ml Documented by: Hydrocortisone Sodium Succinate (Hydrocortisone Sod Succ 100 Mg Vial) 50 mg IV Q8H [facility] Last Admin: 02/27/21 03:52 Dose: 50 mg Documented by: Hydromorphone HCl (Hydromorphone 0.5 Mg/0.5 Ml Syringe) 0.5 mg IV Q2HP PRN; Protocol PRN Reason: Per Pain Protocol Last Admin: 02/27/21 02:41 Dose: 0.5 mg Documented by: Acetaminophen (Ofirmev) 1,000 mg in 100 mls @ 200 mls/hr IV Q6H [facility]; Protocol Last Infusion: 02/27/21 00:38 Dose: Infused Documented by: Vancomycin HCl 1,500 mg/ (Sodium Chloride) 500 mls @ 333.3 mls/hr IV DAILY [facility] Last Infusion: 02/26/21 10:40 Dose: Infused Documented by: Sodium Chloride (Sodium Chloride 0.9%) 1,000 mls @ 150 mls/hr IV .Q6H40M [facility] Last Infusion: 02/27/21 01:42 Dose: Infused Documented by: Norepinephrine Bitartrate 16 (mg/ Sodium Chloride) 250 mls @ 9.375 mls/hr IV Q24H [facility]; Protocol Last Titration: 02/27/21 05:45 Dose: 25 mcg/min, 23.438 mls/hr Documented by: Sodium Chloride (Sodium Chloride 0.9%) 250 mls @ 20 mls/hr IV .[id number] [facility] Last Admin: 02/27/21 02:13 Dose: 20 mls/hr Documented by: Sodium Chloride (Sodium Chloride 0.9%) 250 mls @ 20 mls/hr IV .[id number] [facility] Stop: 02/27/21 15:29 Last Admin: 02/27/21 05:20 Dose: 20 mls/hr Documented by: Sodium Chloride (Sodium Chloride 0.9%) 250 mls @ 20 mls/hr IV .[id number] [facility] Stop: 02/27/21 18:14 Last Admin: 02/27/21 06:43 Dose: 20 mls/hr Documented by: Insulin Glargine (Insulin Glargine, Human 1 Unit/0.01 Ml) 10 unit SQ BID [facility] Last Admin: 02/26/21 21:20 Dose: 10 units Documented by: Insulin Human Lispro (Insulin Lispro 1 Unit/0.01 Ml Unit) 0 unit SQ Q6 [facility]; Protocol Last Admin: 02/27/21 00:09 Dose: 2 units Documented by: Levothyroxine Sodium (Levothyroxine 100 Mcg Tablet) 200 mcg PO QAMAC [facility] Magnesium Oxide (Magnesium Oxide 400 Mg Tablet) 800 mg PO DAILY [facility] Metformin HCl (Metformin 500 Mg Tablet) 500 mg PO BIDAC [facility] Last Admin: 02/26/21 15:01 Dose: Not Given Documented by: Metoprolol Succinate (Metoprolol Succinate 50 Mg Tab.Xl.24h) 50 mg PO DAILY [facility] Nystatin (Nystatin Crm 1 Dose Tube) 1 dose TOPICAL TIDP PRN PRN Reason: Skin Irritation Ondansetron HCl (Ondansetron 4 Mg Odt Tablet) 4 mg SL Q4HP PRN PRN Reason: Nausea And Vomiting Ondansetron HCl (Ondansetron 4 Mg/2 Ml Vial) 4 mg IV Q6HP PRN PRN Reason: Nausea And Vomiting Last Admin: 02/27/21 05:05 Dose: 4 mg Documented by: Oxycodone HCl (Oxycodone Hcl 5 Mg Tablet) 10 mg PO Q4HP PRN; Protocol PRN Reason: Per Pain Protocol Last Admin: 02/27/21 01:50 Dose: 10 mg Documented by: Prednisone (Pred[facility] 20 Mg Tablet) [facility] Promethazine HCl (Promethazine 25 Mg Tablet) 25 mg PO Q6HP PRN PRN Reason: Nausea Pyridostigmine [place] (Pyridostigmine [place] 10 Mg/2 Ml Ampul) 10 mg IM Q6H [facility] Last Admin: 02/26/21 23:50 Dose: 10 mg Documented by: Senna (Sennosides 1 Tablet) 2 tab PO HS [facility] Last Admin: 02/26/21 21:02 Dose: 2 tab Documented by: Simethicone (Simethicone 80 Mg Tab.Chew) 80 mg PO DAILYP PRN PRN Reason: Nausea Sodium Chloride (0.9 % Sodium Chloride 10 Ml Syringe) 10 ml IV Q8 [facility] Last Admin: 02/26/21 20:15 Dose: 10 ml Documented by: Sodium Chloride (0.9 % Sodium Chloride 10 Ml Syringe) 10 ml IV Q12 [facility] Last Admin: 02/26/21 21:04 Dose: 10 ml Documented by: Vancomycin HCl (Vancomycin Per Pharmacy) 1 order IV [facility] [place]; Protocol A/P Narrative A/P Narrative: A: *Bacteremia (Staph epidermidis): 2/2 indwelling catheter, port removal attempted (02/26) -afebrile o/n *Hemorrhagic shock: s/p 6prbc and plts 2/2 large hematoma s/p surgical evacuation (02/27) *Acute on chronic anemia: Stable, status post blood transfusions on admit. but dropped d/t hematoma - *DM w/hyperglycemia: Now better controlled, was not taking insulin at home *Electrolyte imbalance/hypomagnesemia: *History of recurrent SBO follows up with Dr. Currie surgery. 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 Plan: -cont vanco for bacteremia, once indwelling device removed (recommend 7-day therapy from neg BC - pending repeat BC) -likely needs vascular surgery to remove remaining portion of catheter -given deterioration, broadened abx with zosyn, awaitng today's cbc/diff -wean vasopressors (off currently) -echo pending -IVF's/electrolytes/bowel per surgery -cont home prednisone(IV if unable to take PO)/BB. stress-dose steroids yesterda y -cont levothyroxine (IV if unable to take PO) -basal and SSI -PT as tolerated -Discharge planning to SNF once clinically stable -hospice consult -ppx: apixaban Time Spent With Patient Time: Total time spent is greater than 50% in coordination of care (as documented) at patient's floor/unit and/or counseling patient: QUALITY VTE Deep Vein Thrombosis/Pulmonary Embolism Present on Admission: No
[2021-02-27] MEDS ORDERED: PIPERACILLIN SODIUM/TAZOBACTAM 3.375 GM in DEXTROSE 5% IN WATER 50 ML IV SCH (08:00)
[2021-02-27] MEDS ORDERED: predniSONE 20 MG TABLET PO SCH (08:00)
--- NOTE | 2021-02-27 08:40 | XRay Report ---
CLINICAL INFORMATION: FOLLOW -UP OF SMALL BOWEL OBSTRUCTION COMPARISON: 02/26/2021 FINDINGS: GI tract is relatively decompressed with only small amounts of gas in the stomach small and large bowel. No evidence recurrent small bowel obstruction. No free air. IMPRESSION: Negative Interpreted and Authenticated by: All Lundberg 02/27/21
[2021-02-27] MEDS ORDERED: DEXTROSE 50% 50 ML VIAL IV PRN ×2 (08:43)
[2021-02-27] MEDS ORDERED: ONDANSETRON 4 MG/2 ML VIAL IV PRN (08:43)
[2021-02-27] MEDS ORDERED: SIMETHICONE 80 MG TAB.CHEW PO PRN (08:43)
[2021-02-27] MEDS ORDERED: oxyCODONE HCL 5 MG TABLET PO PRN (08:43)
[2021-02-27] MEDS ORDERED: VANCOMYCIN PER PHARMACY IV SCH (08:43)
[2021-02-27] MEDS ORDERED: 0.9 % SODIUM CHLORIDE 1,000 ML IV SCH (08:43)
[2021-02-27] MEDS ORDERED: ONDANSETRON 4 MG ODT TABLET SL PRN (08:43)
[2021-02-27] MEDS ORDERED: CYCLOBENZAPRINE 10 MG TABLET PO PRN (08:43)
[2021-02-27] MEDS ORDERED: NYSTATIN CRM 1 DOSE TUBE TOPICAL PRN (08:43)
[2021-02-27] MEDS ORDERED: PROMETHAZINE 25 MG TABLET PO PRN (08:43)
[2021-02-27] MEDS ORDERED: HYDROmorphone 0.5 MG/0.5 ML SYRINGE IV PRN (08:43)
--- NOTE | 2021-02-27 08:54 | Brief Operative Note ---
Brief Operative Note Date of procedure: 02/27/21 Pre-op diagnosis: hemorrhage of left breast Post-op diagnosis: other (hemorrhage of left breast with hemorrhagic shock) Procedure: exploration and evacuation of majoe clot of left breast Grafts/Implants: No (sarah drain x2) Anesthesia: GLMA Complications: none Surgeon: Bertha Currie Specimens Removed/Pathology: other (massive blood cloy) Condition: critical Disposition: ICU
[2021-02-27] MEDS ORDERED: GABAPENTIN 300 MG CAPSULE PO SCH (09:00)
[2021-02-27] MEDS ORDERED: INSULIN GLARGINE, HUMAN 1 UNIT/0.01 ML SQ SCH (09:00)
[2021-02-27] MEDS ORDERED: MAGNESIUM OXIDE 400 MG TABLET PO SCH ×2 (09:00)
[2021-02-27] MEDS ORDERED: METOPROLOL SUCCINATE 50 MG TAB.XL.24H PO SCH (09:00)
[2021-02-27] MEDS ORDERED: DOCUSATE SODIUM 100 MG CAPSULE PO SCH (09:00)
[2021-02-27] MEDS ORDERED: VANCOMYCIN 1,500 MG in 0.9 % SODIUM CHLORIDE 500 ML IV SCH (09:00)
[2021-02-27] MEDS ORDERED: DULoxetine 30 MG CAPSULE PO SCH (09:00)
[2021-02-27] MEDS: PIPERACILLIN SODIUM/TAZOBACTAM 3.375 GM in DEXTROSE 5% IN WATER 50 ML IV SCH ×2 (09:00→13:07)
[2021-02-27] MEDS ORDERED: 0.9 % SODIUM CHLORIDE 10 ML SYRINGE IV SCH ×2 (09:00→14:00)
[2021-02-27] MEDS ORDERED: PYRIDOSTIGMINE BROMIDE 10 MG/2 ML AMPUL IM SCH (09:00)
[2021-02-27] MEDS: ACETAMINOPHEN 1,000 MG/100 ML BAG IV SCH ×3 (09:07→11:18)
[2021-02-27] MEDS: 0.9 % SODIUM CHLORIDE 1,000 ML IV SCH (09:41)
[2021-02-27] MEDS: 0.9 % SODIUM CHLORIDE 10 ML SYRINGE IV SCH (09:44)
[2021-02-27] MEDS: PYRIDOSTIGMINE BROMIDE 10 MG/2 ML AMPUL IM SCH (09:44)
[2021-02-27 10:13] LABS: ALT/SGPT 19 U/L (<40); AST/SGOT 23 U/L (<32); Albumin 1.6 gm/dL (3.2-5.2); Albumin/Globulin Ratio 0.8 (1.0-2.3); Alkaline Phosphatase 62 U/L (39-117); Bilirubin,Direct < 0.2 mg/dL (0-0.3); Bilirubin,Total 0.4 mg/dL (0.1-1.0); Blood Urea Nitrogen 16 mg/dL (6-20); Calcium 6.3 mg/dL (8.6-10.4); Carbon Dioxide 19 mmol/L (22-30); Chloride 107 mmol/L (96-108); Glomerular Filtration Rate 81; Glucose 274 mg/dL (70-105); Lactate Dehydrogenase 309 U/L (135-225); Phosphorous 6.3 mg/dL (2.5-4.5); Triglycerides 134 mg/dL (<150); Uric Acid 4.4 mg/dL (2.5-8.0)
[2021-02-27] MEDS ORDERED: NOREPINEPHRINE BITARTRATE 16 MG in 0.9 % SODIUM CHLORIDE 234 ML IV SCH (11:00)
[2021-02-27] MEDS: FERROUS SULFATE 325 MG TABLET PO SCH (11:30)
[2021-02-27] MEDS: metFORMIN 500 MG TABLET PO SCH (11:30)
--- NOTE | 2021-02-27 11:45 | Discharge Summary ---
Discharge Provider Provider Patient information: Note initiated : 02/27/21 at 11:42 am Service Date, if different from initiated Date: [] Patient: Dayanna Guo 60 y/o F admitted on 02/21/21 for DKA, Cold/Flu. Chief Complaint: [] Date of admission: 02/21/21 17:51 Discharge date: 02/27/21 Primary care physician: Douglas Haque Admitting clinician: Bertha Currie Consults: 02/21/21 15:54 Consult to Physician [CONS] Stat Comment: Consulting Provider: Bertha Currie Reason For Exam: Physician to Consult 02/26/21 10:20 Consult to Physician [CONS] Routine Comment: Consulting Provider: Smith Vu Reason For Exam: Physician to Consult Attending physician on discharge: Bertha Currie Discharging clinician: Bertha Currie COURSE Hospital Course Hospital course: 60-year-old female who was admitted via the emergency room on 21 February with hyperglycemia ,dehydration, and new onset of fever. Patient was recently discharged on 02/15/2021 after an 8-day stay for recurrent intestinal pseudoobstruction. During that hospitalization she was started on TPN and was discharged home on TPN with a home infusion service and home health nurse. According to the patient she did not use insulin during the last 5 days and had become progressively thirsty with polyuria and polydipsia. She had also had some fever and shaking chills. Blood cultures were drawn in the emergency room and she was admitted and started on antibiotics pending culture results. The patient was not having any problems with pseudoobstruction at the time of admission and was having copious output through her stoma. Her initial cultures grew out Staph epidermidis and she was started on vancomycin and Zosyn pending final culture and sensitivity. She became progressively unstable and had episodes of hypotension and tachycardia compatible with sepsis though her white count was less than 10. She did not have any significant bandemia even. Final blood cultures showed the staph epidermidis to be an 4 bottles. The TPN was subsequently discontinued and a right sided central venous catheter was placed. On yesterday an attempt was made to remove the Port-A-Cath but the catheter was densely adherent at the level of the subclavian vein and could not be pulled safely pulled. The port was removed but the catheter was left in situ and was sutured closed. It was unlikely that the catheter would be a source of air embolus since a guidewire could not be placed through the catheter. The patient developed bleeding from the site of the port removal and over period of a few hours had massive bleeding that was subsequently evacuated in the operating room this morning. The patient was hypotensive until she received a total of 5 units of blood. She also received 3 units of FFP and a sixpack of platelets. The cavity of her left breast is drained by 2 #10 Norman drains and has had less than 30 cc output over the past 3hours. It was discussed with the patient that we were proceeding with transfer to a higher level of care for removal of the adherent catheter in the left subclavian. An attempt will be made to get the services of a cardiovascular or vascular surgeon for this intervention. This was discussed again with the patient and her and they are agreeable to transfer. Discharge diagnosis: Acute septicemia due to Staphylococcus epidermidis Secondary discharge diagnosis: Acute hemorrhage post procedure with hemorrhagic shock Polyglandular autoimmune syndrome History of hypertension Diabetes mellitus type 2 Chronic intestinal pseudoobstruction recurrent Myasthenia gravis Morbid obesity Chronic obstructive sleep apnea Extensive intraperitoneal adhesions with hostile abdomen Chronic anemia iron deficiency type Ileostomy status Reason for admission: Hyperglycemia and sepsis Procedures: Right subclavian catheter placement Attempted removal of left subclavian Port-A-Cath Evacuation of left breast hematoma Complications: Postprocedure hemorrhage after removal of Port-A-Cath Time Spent with Patient Time attestation: Total time spent providing and/or coordinating discharge services: Physical Examination Vital Signs Vital signs: Temp Pulse Resp BP Pulse Ox 96.0 F L 103 H 24 H 88/61 99 02/27/21 08:19 02/27/21 10:35 02/27/21 10:35 02/27/21 08:31 02/27/21 10:35 General physical appearance General physical exam: moderate distress and moderate pain Eyes Eye exam: PERRL, normal ocular movement and pale ENT ENT exam: normal mucosa, no hearing loss and no congestion Head Head exam IM: Present atraumatic, normal inspection and normocephalic Neck Neck exam: no masses, no bruits, trachea midline, no lymphadenopathy and no venous distension Cardiovascular Cardiovascular exam IM: Present normal rate and rhythm, +S1, +S2 and tachycardia; Absent JVD Respiratory Respiratory exam: normal expansion, normal respiratory effort and clear to auscultation Abdomen Abdomen: Present soft, non tender, bowel sounds (Normal active bowel sounds) and surgical scars (Well-healed midline surgical scar) Integumentary Integumentary: Present no rash, no growths and other (Extensive ecchymosis of left sided chest wall and left breast) Neurologic Neurologic: Present normal coordination and normal sensation Musculoskeletal Musculoskeletal: Present other (Patient is bedridden) Psychiatric Psychiatric: Present oriented to time, oriented to person, oriented to place, speech is normal and memory intact Discharge Plan Patient/Caregiver Discharge Instructions Diet: NPO Instructions: Full Liquid Diet (DC) Prescriptions: No Action pyridostigmine bromide 5 mg/mL solution 10 mg IM Q6H Qty: 240 RF: 5 (DME) filter needles 19 x 1 1/2" 19 x 1 1/2 " needle See Rx Instructions .ROUTE .MEDSUPPLY Qty: 100 RF: 1 promethazine 25 mg tablet 25 mg PO Q6HP PRN (Reason: Nausea) Qty: 60 RF: 3 insulin glargine 1 UNIT/0.01 ML unit 10 unit SQ BID RF: 0 promethazine 25 MG suppository 25 mg MD Q6HP PRN (Reason: nausea vomitting) RF: 0 ondansetron 4 MG tablet 4 mg SL Q4HP PRN (Reason: Nausea) RF: 0 metformin 500 MG tablet 500 mg PO BIDAC RF: 0 prednisone 20 MG tablet 20 mg PO QAMCC RF: 0 Accu-Chek 1 EACH strip 1 each FS ACHS RF: 0 metoprolol succinate 50 mg Capsule,Sprinkle,Er 24hr 50 mg PO DAILY RF: 0 Eliquis 5 mg Tablet 5 mg PO BID 150 Days Qty: 60 RF: 6 octreotide acetate 100 mcg/mL Solution 100 mcg subcut TID Qty: 25 RF: 4 levothyroxine 100 mcg Tablet 200 mcg PO QAMAC Qty: 30 RF: 3 cyclobenzaprine 10 mg Tablet 10 mg PO BID PRN (Reason: Muscle Pain) RF: 0 gabapentin 300 mg Tablet 300 mg PO BID RF: 0 acetaminophen 500 mg Tablet 1,000 mg PO Q6H PRN (Reason: Fever) RF: 0 magnesium hydroxide [Milk of Magnesia] 400 mg/5 mL Suspension 400 mg PO QDAY PRN (Reason: Constipation) RF: 0 promethazine 50 mg Tablet 50 mg PO DAILY PRN (Reason: Nausea And Vomiting) RF: 0 bisacodyl [Dulcolax (bisacodyl)] 10 mg Suppository 10 mg MD QDAY PRN (Reason: Constipation) RF: 0 Fleet Enema 19-7 gram/118 mL Enema 118 ml MD DAILYP PRN (Reason: Constipation) RF: 0 alum-mag hydroxide-simeth [Maalox Maximum Strength] 400-400-40 mg/5 mL Suspension 30 ml PO DAILYP PRN (Reason: Nausea) RF: 0 simethicone 80 mg Tablet 80 mg PO QDAY PRN (Reason: Nausea) RF: 0 duloxetine 30 mg Capsule, Delayed Rel Sprinkle 30 mg PO BID RF: 0 Glucagon (HCl) Emergency Kit 1 mg Recon Soln 1 mg IM Q15M PRN (Reason: Hypoglycemia) RF: 0 calcitriol 0.25 mcg capsule 0.25 mcg PO TUTHSA RF: 0 magnesium 500 mg Tablet 1,000 mg PO QDAY RF: 0 Follow Up Plan Follow up with: Douglas Haque MD [Primary Care Provider] - Patient Disposition: [facility] Prognosis: Fair Rehab Potential: Critical I certify that the patient requires SNF services: No Overall status at discharge: patient is not back to baseline Discharge Orders: Discharge Order (Routine); Ordered 02/27/21 Ordered By: Bertha Currie Pending Pending Pending: Resuscitation Status Full Code Diet Full Liquid Diet Start SatFeb 22 1844 Docusate Sodium (Docusate Sodium 100 Mg Capsule) 100 mg PO BID [facility] Last Admin: 02/27/21 09:35 Dose: 100 mg Documented by: [id number] Duloxetine HCl (Duloxetine 30 Mg Capsule) 30 mg PO BID [facility] Last Admin: 02/27/21 10:15 Dose: 30 mg Documented by: [id number] Gabapentin (Gabapentin 300 Mg Capsule) 300 mg PO BID [facility] Last Admin: 02/27/21 09:08 Dose: 300 mg Documented by: [id number] Heparin Sodium (Porcine) (Heparin Flush 10 Units/Ml 5 Ml Syringe) 2 ml IV Q12 [facility] Last Admin: 02/27/21 09:38 Dose: 2 ml Documented by: [id number] Sodium Chloride (Sodium Chloride 0.9%) 250 mls @ 20 mls/hr IV .[id number] [facility] Last Admin: 02/27/21 09:00 Dose: 20 mls/hr Documented by: [id number] Sodium Chloride (Sodium Chloride 0.9%) 250 mls @ 20 mls/hr IV .[id number] [facility] Stop: 02/27/21 15:29 Last Admin: 02/27/21 09:10 Dose: Not Given Documented by: [id number] Sodium Chloride (Sodium Chloride 0.9%) 250 mls @ 20 mls/hr IV .[id number] [facility] Stop: 02/27/21 18:14 Last Admin: 02/27/21 09:30 Dose: 20 mls/hr Documented by: [id number] Sodium Chloride (Sodium Chloride 0.9%) 1,000 mls @ 150 mls/hr IV .[id number] [facility] Last Admin: 02/27/21 09:00 Dose: 150 mls/hr Documented by: [id number] Acetaminophen (Ofirmev) 1,000 mg in 100 mls @ 200 mls/hr IV Q6H [facility]; Protocol Last Admin: 02/27/21 11:18 Dose: Not Given Documented by: [id number] Infusion: 02/27/21 09:40 Dose: 0 mls/hr Documented by: [id number] Admin: 02/27/21 09:07 Dose: 200 mls/hr Documented by: [id number] Norepinephrine Bitartrate 16 (mg/ Sodium Chloride) 250 mls @ 9.375 mls/hr IV Q24H [facility]; Protocol Last Admin: 02/27/21 11:18 Dose: Not Given Documented by: [id number] Piperacillin Sod/Tazobactam (Sod 3.375 gm/ Dextrose) 50 mls @ 100 mls/hr IV Q6H [facility]; Protocol Last Infusion: 02/27/21 09:30 Dose: 0 mls/hr Documented by: [id number] Admin: 02/27/21 09:00 Dose: 100 mls/hr Documented by: [id number] Vancomycin HCl 1,500 mg/ (Sodium Chloride) 500 mls @ 333.3 mls/hr IV DAILY [facility] Last Infusion: 02/27/21 10:58 Dose: 0 mls/hr Documented by: [id number] Admin: 02/27/21 09:00 Dose: 333.3 mls/hr Documented by: [id number] Insulin Glargine (Insulin Glargine, Human 1 Unit/0.01 Ml) 10 unit SQ BID [facility] Last Admin: 02/27/21 10:00 Dose: 10 unit Documented by: [id number] Magnesium Oxide (Magnesium Oxide 400 Mg Tablet) 800 mg PO DAILY [facility] Last Admin: 02/27/21 09:09 Dose: 800 mg Documented by: [id number] Pyridostigmine Erwin (Pyridostigmine Erwin 10 Mg/2 Ml Ampul) 10 mg IM Q6H [facility] Last Admin: 02/27/21 09:00 Dose: 10 mg Documented by: [id number] Sodium Chloride (0.9 % Sodium Chloride 10 Ml Syringe) 10 ml IV Q12 [facility] Last Admin: 02/27/21 09:39 Dose: 10 ml Documented by: [id number] Shift Summary 02/26/21 05:09 Shift Summary by Marcia Elliott Pt lethargic, sleeps well between care intervention et when awake she immediately c/o back pain et hip pain. Given Roxicodone 5 mg tabs 2 twice. Last at 04:30 because pt was yelling/screaming/shivering et crying. Port-a-cath occluded, de-accessed et re-accessed with 20 ga 1 inch Ojeda needle. Currently 2 mg of Cathflo still dwelling. Was unable to aspirate blood after 2 hr dwell time. Accu checks done q 1-2 hrs: 150-not covered, 143-not covere, 78-given 25 ml 50% Dextrose (new order for now), 103. Received Lantus 10 units at 21:00. NS infusing at 125 ml/hr via iv site RFA. Pt frequently incontinent, refused to get up on BSC, voided per bedpan once. Ileostomy drained 750 ml. Turned q 2 hrs. SpO2 stable on RA, hypertensive, afebrile. Initialized on 02/26/21 05:09 - END OF NOTE
[2021-02-27] MEDS ORDERED: FERROUS SULFATE 325 MG TABLET PO SCH (12:00)
[2021-02-27] MEDS ORDERED: HYDROCORTISONE SOD SUCC 100 MG VIAL IV SCH (12:00)
[2021-02-27] MEDS ORDERED: INSULIN LISPRO 1 UNIT/0.01 ML UNIT SQ SCH (12:00)
[2021-02-27 12:53] LABS: Basophils # (Auto) 0.11 K/mcL (0.00-0.20); Basophils % (Auto) 0.7 % (0.0-2.0); Eosinophils # (Auto) 0.01 K/mcL (0.00-0.70); Eosinophils % (Auto) 0.1 % (0.0-7.0); Hemoglobin 10.8 g/dL (12.0-15.0); Lymphocytes # (Auto) 1.08 K/mcL (1.50-4.80); Lymphocytes % (Auto) 6.7 % (15.0-49.0); Mean Cell Volume 87.9 fL (80.0-100.0); Mean Corpuscular HGB Conc 33.8 g/dL (31.0-36.0); Mean Platelet Volume 10.9 fL (7.4-10.4); Monocytes # (Auto) 0.79 K/mcL (0.10-0.90); Monocytes % (Auto) 4.9 % (1.0-12.0); Neutrophils % (Auto) 87.6 % (38.0-78.0); Platelet Count 212 K/mcL (140-440); RBC 3.64 M/mcL (4.00-5.20); Red Cell Distribution Width 14.7 % (11.5-14.5)
[2021-02-27 15:08] LABS: Band Neutrophils % 7 % (0-10); Lymphocytes % 5 % (15-49); Monocytes % (Manual) 2 % (1-12); Platelet Estimate NORMAL (Normal); RBC Morphology NORMAL (Normal); Segmented Neutrophils % 86 % (38-78)
[2021-02-27] MEDS ORDERED: SENNOSIDES 1 TABLET PO SCH (21:00)
[2021-02-28] MEDS ORDERED: LEVOTHYROXINE 100 MCG TABLET PO SCH (07:30)
[2021-02-28] MEDS ORDERED: predniSONE 20 MG TABLET PO SCH (08:00)
[2021-02-28] MEDS ORDERED: CALCITRIOL 0.25 MCG CAPSULE PO SCH ×2 (09:00)
--- NOTE | 2021-03-01 11:52 | Operative Note ---
DATE OF OPERATION: 02/27/2021 PREOPERATIVE DIAGNOSIS: Massive hemorrhage of left breast secondary to apixaban anticoagulant with resultant hemorrhagic shock. POSTOPERATIVE DIAGNOSES: Massive hemorrhage of left breast secondary to apixaban anticoagulant with resultant hemorrhagic shock. PROCEDURE: Exploration and evacuation of large hematoma clot of the left breast. SURGEON: Bertha Currie M.D. INDICATIONS FOR PROCEDURE: The patient had a Port-A-Cath attempted removal on the day of the procedure. The Port-A-Cath was placed in 2016. A 2.5 cm incision was made over the port and extended through the subcutaneous tissue to the chamber. The capsule was entered and the chamber was removed. The pseudocapsule around the drain was then incised and an attempt was made to extract the catheter. With maximum traction, I could not get the catheter to move except for about 4 cm. X-ray was taken to confirm the position of the catheter. It was therefore decided to make an incision in the subclavicular area close to the insertion site. This was done and the catheter was dissected free. The pseudocapsule around the catheter was incised. With maximal contraction at this point, I could not remove the catheter. I, therefore, tried to cannulate the catheter with a small guidewire. The guidewire could not be pushed through the catheter, confirming that the catheter was totally blocked. Because of the potential for the catheter fracturing and leaving a retained fragment, it was therefore decided to abort this procedure and have the catheter removed by someone with a thoracic endovascular experience. The catheter was tied off with a #3 ligatures of 3-0 Monocryl and two sutures of 2-0 Prolene. The port extraction site was irrigated and inspected. The deep tissues were closed with running locking 2-0 Monocryl in two layers. The skin was closed with 2-0 Prolene. Dressing was placed. The catheter was sterilely wrapped in 4 x 4 gauze, and an occlusive dressing of 4 x 4 gauze, and Tegaderm was placed over the entire area to maintain the sterility of the catheter that was extruding. The patient tolerated the procedure well; however, she had major bleeding during the night and developed hemorrhagic shock. It was elected to take her to the operating room. PROCEDURE IN DETAIL: After the patient was under anesthesia, she received 2 more units of blood and 2 units of fresh frozen plasma. The incision from the extraction of the port was extended transversely into the left chest subcutaneous tissue. The large hematoma was encountered and a very large volume of non-clotted blood was extruded from the left breast. Incision was extended so that I could get my hand into the cavity. My hand was placed, and all partially formed clot and blood was removed. The area was then irrigated with saline. I then had tranexamic acid mixed with 500 mL of saline and this was placed in the cavity and was left in place for about 5 minutes. This was done twice and no further bleeding was noted. I then coated the entire area with Seun hemostatic powder. Three 4 x 4 gauze were then placed in the area and when they were withdrawn there was minimal blood on the gauze suggesting that the area was closed. I encountered two very small pulsatile acute subcutaneous arterials in the area of the port removal. These were controlled with suture ligatures of 3-0 Vicryl. Being satisfied that no further bleeding was noted, two #10 Norman drains were placed in the cavity that was dissected by the expanding hematoma. They were brought out in this mammary region. The incision was closed in two layers with 2-0 Monocryl. Skin was closed with running locking 2-0 Prolene. The drains were secured with 2-0 nylon. The catheter was rewrapped in a sterile gauze, and a dressing was placed over the area and covered with two large Tegaderm dressings. The patient had stabilized by the end of the procedure and was off pressors with good blood pressure in the 110 systolic range, and pulse rate about 100-110. She was awakened easily with stable vital signs and was transferred back to the intensive care unit in satisfactory condition. LCS:donovan Job ID: [id number] Doc ID: [id number] Bertha Currie M.D.
== END 2021-02-27 13:05 | disposition short-term general hospital (02) | DRG 853 ==
LOC: ED 09:56 → MEDSUR 17:51 → ICU 02-26 07:28
PROVIDERS: ADMIT Family Medicine Adult Medicine; ATTEND Family Medicine Adult Medicine

== ENCOUNTER 2022-07-08 14:18 | Inpatient (IN) ==
[2022-07-08] MEDS ORDERED: 0.9 % SODIUM CHLORIDE 1,640 ML IV ONE (14:25)
[2022-07-08] MEDS ORDERED: PHENobarb/HYOSCY/ATROPINE/SCOP 1 DOSE BOTTLE PO ONE (14:32)
--- NOTE | 2022-07-08 14:38 | Emergency Department Note ---
Dizziness HPI General Chief Complaint: Dizziness Stated Complaint: uti, bs high Time Seen by Provider: 07/08/22 14:25 Source: patient Mode of arrival: wheelchair Limitations: no limitations History of Present Illness HPI Narrative: Narrative: Patient presents ED with complaints of not feeling well x1 week and having multiple complaints. She reports her blood sugar is high greater than 400 shortly prior to arrival when her baseline is between 250 and 300. She states she took some insulin this morning 5 units. She also reports some dysuria and burning when she pees. She also reports some congestion as well as nausea and vomiting. She reports esophageal spasm which is chronic for her. She denies fever, chills, hematemesis, melena, medic easier, cardiac chest pain, heart palpitations, shortness of breath. She does report a cough. She denies any other alleviating or aggravating factors. Related Data Home Medications Medication Instructions Recorded Confirmed ondansetron 4 mg disintegrating 4 mg SL Q4HP PRN Nausea 12/24/19 06/15/22 tablet promethazine 50 mg tablet 50 mg PO DAILY PRN Nausea And 01/27/21 06/15/22 Vomiting glucagon HCl 1 mg solution for 1 mg IM Q15M PRN Hypoglycemia 02/07/21 06/15/22 injection (Glucagon (HCl) Emergency Kit) magnesium 500 mg tablet 1,000 mg PO QDAY 02/21/21 06/15/22 hkgicrho-hpf-khrs-FA-Ca carb-vit K 1 tab PO DAILY 05/22/21 06/15/22 18 mg iron-400 mcg-500 mg tablet (Women's Multivitamin) calcium 1,000 mg PO BID 02/01/22 06/15/22 Previous Rx's Medication Instructions Recorded apixaban 5 mg tablet (Eliquis) 5 mg PO BID #60 tabs 07/25/21 syringe with needle, safety 3 mL #100 ea 11/01/21 25 gauge x 1" doxycycline monohydrate 100 mg 100 mg PO BID Chronic catheter 11/14/21 capsule sepsis 90 days #180 caps insulin syringe-needle U-100 1 mL #100 ea 12/05/21 32 gauge x 5/16" pen needle, diabetic 32 gauge x #200 ea 12/07/21 5/32" (BD Ultra-Fine Concepcion Pen Needle) cyclobenzaprine 10 mg tablet 10 mg PO Q6H PRN Muscle Pain #120 12/11/21 tabs pyridostigmine bromide 60 mg tablet 60 mg PO QID #120 tabs 02/26/22 omeprazole 20 mg capsule,delayed 20 mg PO QDAY #30 caps 03/06/22 release insulin glargine 100 unit/mL (3 5 unit (0.05 mL) subcut QPM #15 mL 04/06/22 mL) subcutaneous pen (Lantus Solostar U-100 Insulin) duloxetine 30 mg capsule,delayed 30 mg PO BID #180 caps 04/12/22 release gabapentin 300 mg capsule 300 mg PO QID 30 days #360 caps 04/12/22 insulin lispro 100 unit/mL 1 sliding scale dose subcut TID 04/12/22 subcutaneous pen (Humalog KwikPen #45 Syringes (U-100) Insulin) calcitriol 0.25 mcg capsule See Rx Instructions .Route 05/15/22 .COMPLEX #15 caps prednisone 20 mg tablet 20 mg PO QAC #90 tabs 05/22/22 blood sugar diagnostic (Contour #300 ea 06/14/22 Next Test Strips) baclofen 10 mg tablet 5 mg PO TID 30 days #45 tabs 06/15/22 levothyroxine 200 mcg tablet 200 mcg PO QDAY #90 tabs 06/19/22 Allergies Allergy/AdvReac Type Severity Reaction Status Date / Time Sulfa (Sulfonamide Allergy Severe Anaphylaxis Verified 07/08/22 14:23 Antibiotics) metoclopramide [From Reglan] AdvReac Severe Anxiety Verified 07/08/22 14:23 adhesive tape AdvReac Mild Blister Verified 07/08/22 14:23 steri strips AdvReac Mild Blister Uncoded 06/15/22 08:08 Review of Systems ROS ROS Narrative: Narrative: All systems ED: reviewed and negative except as stated. PFSH Narrative Patient History Narrative: Narrative: Medical/Surgical/Family History All Active Problems (Updated 07/08/22 @ 16:28 by Filiberto Gonzales DO) Myasthenia gravis (Chronic) Sarcoidosis (Chronic) Hypothyroidism (Chronic) Hypertension (Chronic) Abnormal liver enzymes (Chronic) Chronic use of steroids (Chronic) Recurrent intestinal obstruction (Chronic) Obesity, Class II, BMI 35-39.9 (Chronic) Diabetes mellitus type 2, uncontrolled (Chronic) Chronic intestinal pseudo-obstruction (Chronic) Abdominal pain (Chronic) Chronic, continuous use of opioids (Chronic) LA (obstructive sleep apnea) (Chronic) Recurrent abdominal pain (Chronic) Sinus tachycardia (Chronic) Low blood magnesium level (Chronic) Hypocalcemia (Chronic) Elevated LFTs (Chronic) Electrolyte abnormality (Chronic) Small bowel obstruction (Chronic) Dehydration (Chronic) Primary chronic pseudo-obstruction of small intestine (Chronic) Nausea & vomiting (Chronic) Diabetic ketoacidosis (Chronic) Severe sepsis (Chronic) 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 (Chronic) Acute UTI (Chronic) Hypercalcemia (Chronic) COVID-19 (Chronic) Acute kidney injury (Chronic) Elevated serum creatinine (Chronic) Low back pain (Chronic) Partial small bowel obstruction (Chronic) Hypokalemia (Chronic) Diabetes mellitus (Chronic) Intractable abdominal pain (Chronic) Intractable vomiting with nausea (Chronic) Small bowel ischemia (Chronic) Pneumatosis intestinalis (Chronic) Right knee sprain (Chronic) Generalized weakness (Chronic) Hypercalcemia (Chronic) Acute hyperkalemia (Chronic) Leukocytosis (Chronic) Acidosis, lactic (Chronic) Fever of unknown origin (Chronic) Metabolic acidosis with normal anion gap and failure of bicarbonate regeneration (Chronic) Hyponatremia with decreased serum osmolality (Chronic) Ileostomy status (Chronic) Hypophosphatemia (Chronic) Bacteremia (Chronic) Hypoparathyroidism, unspecified (Chronic) SBO (small bowel obstruction) (Chronic) Anemia (Chronic) Acute hyperglycemia (Chronic) Acute dehydration (Chronic) Chronic iron deficiency anemia (Chronic) UTI (urinary tract infection) (Chronic) THANIA (acute kidney injury) (Chronic) Acute confusion (Chronic) Acute hyponatremia (Chronic) Acute delirium (Chronic) Myasthenia gravis (Chronic) Sepsis (Chronic) Morbid obesity (Chronic) Sepsis (Acute) UTI (urinary tract infection) (Acute) Hyperosmolar hyperglycemic state (HHS) (Acute) Medical History Abdominal pain Abdominal wound dehiscence Abnormal liver enzymes Achalasia and cardiospasm Acute respiratory insufficiency Adverse reaction to drug Anaphylaxis Bowel obstruction Chronic intestinal pseudo-obstruction If no mechanical obstruction, patient says cholinesterase inhibitors usually works Linzess is another possibility Octreotide has helped in children Chronic use of steroids for myasthenia gravis; 10+ years, she started using steroids in 2002. Chronic, continuous use of opioids Need to minimize or stop as they are confusing the bowel issue Constipation due to neurogenic bowel Constipation due to pain medication therapy Dehydration Diabetes mellitus type 2, uncontrolled Encounter for care related to Port-a-Cath Fecal impaction Foot sprain Hypercalcemia Hypertension Hypocalcemia Hyponatremia Hypothyroidism Ileus Infiltrate of lung present on imaging of chest Intractable vomiting Lactic acid acidosis Low blood magnesium level Morbid obesity Myasthenia gravis Prednisone dependent at 20 mg daily. In association with thyoma ~20 yrs [employer] Cholinesterase inhibitor IM and/or PO Nausea Nausea & vomiting Obesity, Class II, BMI 35-39.9 Chronic. Obstruction of descending colon LA (obstructive sleep apnea) Pancreatitis Parastomal hernia with obstruction, without gangrene Partial intestinal obstruction, unspecified as to cause Partial small bowel obstruction Pneumonia Polyglandular autoimmune syndrome I see no dental or nail dystrophy to suggest Type 1 polyglandular failure which is the only type associated with HYPOPARATHYROIDISM and no autoimmune adrenalitis. I have not read that MG is a feature and it's not clear that her thyroid disease is autoimmune in nature. So I'm skeptical of this Dx Primary chronic pseudo-obstruction of large intestine Pseudoobstruction of colon Pyelonephritis Recurrent abdominal pain Recurrent intestinal obstruction many recurrences; many surgical interventions Sarcoidosis Said to be present due to "granuloma's on hands" Check RADHA level On steroids forever for her MG Sepsis Sepsis associated hypotension Sepsis with acute hypoxic respiratory failure Sigmoid volvulus Sinus tachycardia Small bowel obstruction due to adhesions Small bowel obstruction due to postoperative adhesions Small bowel obstruction, partial Supraventricular tachycardia UTI (urinary tract infection) Volvulus of sigmoid colon Surgical History History of cholecystectomy (~2000) History of exploratory laparotomy 10/17/2017-with adhesiolysis; 12/01/2017-with adhesiolysis; 07/18/2018; 08/10/2018-Exploratory laparotomy with small bowel adhesiolysis and incisional hernia repair with mesh graft; 11/30/2020-with total intraabdominal adhesiolysis History of meniscal tear (~2007) right knee History of thymectomy (~2002) History of tonsillectomy S/P ileostomy Family History Father CAD (coronary artery disease) Mother CAD (coronary artery disease) Diabetes Grandfather CVA (cerebral vascular accident) HTN (hypertension) Paternal Grandmother CVA (cerebral vascular accident) Dementia Maternal HTN (hypertension) Paternal Bone cancer Maternal Cancer of back Paternal Aunt Diabetes Breast cancer Uncle Diabetes Brain cancer Social History Smoking Status: Never smoker Alcohol Intake Frequency: does not drink Substance Use: does not use Exam Narrative Narrative: Narrative: General Limitations: no limitations General appearance: Present alert and obese Respiratory Respiratory: Present normal lung sounds bilaterally; Absent respiratory distress Cardiovascular Cardiovascular: Present regular rate and normal rhythm Adbominal Abdominal: Present soft; Absent tenderness Extremities Extremities: Present normal capillary refill Neurological Neurological: Present oriented X3 and normal gait Psychiatric Psychiatric: Present normal affect and normal mood Skin Skin: Present warm (WNL) and intact Course Course Course Narrative: Patient was evaluated for concerns of weakness and dizziness. EKG was obtained was unremarkable. Chest x-ray obtained with image reviewed myself no acute cardiopulmonary findings. Labs show that patient had leukocytosis she was also tachycardic upon arrival. Patient was negative for COVID and for flu. UA showed the patient had a UTI. Patient meets sepsis criteria. She was bolused IV fluids, blood cultures obtained and IV antibiotics administered include vancomycin and Rocephin. Patient lactic acid was initially 3.8. After IV fluids it came down to 3. Patient blood sugar was greater than 500 initially. After IV bolus he came down to a little more than 400. She was given IV insulin. Due to patient's diagnosis of sepsis secondary to UTI and HHS I believe patient meets admission criteria. Case discussed with hospitalist Who has agreed to admit the patient Reevaluation(s) Reevaluation #1: Patient chanelle hemodynamic stable. No new complaints at this time. Time: 13:30 Consultations Consultation #1: Case discussed with hospitalist who has agreed to admit the patient Time: 16:43 Vital Signs Vital signs: Vital Signs Temperature 97.5 F 07/08/22 14:20 Pulse Rate 126 H 07/08/22 14:20 Respiratory Rate 20 07/08/22 14:20 Blood Pressure 139/82 07/08/22 14:20 Pulse Oximetry (%) 91 07/08/22 14:20 Oxygen Delivery Method 07/08/22 14:20 Temperature 97.5 F 07/08/22 14:20 Pulse Rate 93 H 07/08/22 15:46 Respiratory Rate 07/08/22 16:01 Blood Pressure 148/91 07/08/22 16:01 Pulse Oximetry (%) 98 07/08/22 15:46 Oxygen Delivery Method 07/08/22 15:21 Oxygen Flow Rate (L/min) 2 07/08/22 15:21 [facility] MDM Narrative Medical decision making narrative: Narrative: Differential Diagnosis Differential Diagnosis: uti, dka, sepsis, esophageal spasm Medical Records Medical records reviewed: Yes I reviewed the patient's medical records. Lab Data Lab results reviewed: Yes I reviewed the patient's lab results. Result diagrams: 07/08/22 14:39 Labs: Lab Results 07/08/22 07/08/22 07/08/22 Range/Units 14:39 14:39 14:39 WBC 14.7 H (4.5-11.0) K/mcL RBC 4.57 (3.59-5.38) M/mcL Hgb 13.2 (11.2-15.7) g/dL Hct 42.2 (34.1-44.9) % POC Hct 44.0 (36-48) MCV 92.3 (80.0-100.0) fL MCH 28.9 (26.0-34.0) pg MCHC 31.3 (31.0-36.0) g/dL RDW 14.3 (11.5-14.5) % Plt Count 426 (140-440) K/mcL MPV 9.9 (8.8-12.5) fL Immature Gran % (Auto) 1.4 H (0.0-0.5) % Neut % (Auto) 86.5 H (38.0-78.0) % Lymph % (Auto) 8.6 L (15.5-49.0) % [place] % (Auto) 3.0 (1.0-12.0) % Eos % (Auto) 0.2 (0.0-7.0) % Baso % (Auto) 0.3 (0.0-2.0) % Lymph # (Auto) 1.27 L (1.50-4.80) K/mcL [place] # (Auto) 0.44 (0.10-0.90) K/mcL Eos # (Auto) 0.03 (0.00-0.70) K/mcL Baso # (Auto) 0.05 (0.00-0.30) K/mcL Immature Gran # 0.21 H (0.00-0.05) K/mcl Absolute Neutrophils 12.69 H (1.80-8.00) K/mcL POC VBG pH (7.32-7.42) POC VBG pCO2 at Temp (41-51) POC VBG pO2 (25-40) POC VBG HCO3 (24-28) POC VBG Total CO2 (25-29) POC Venous O2 Sat (40-70) POC VBG Base Excess (-2-2) VBG Lactic Acid (0.5-2) POC Sodium 132 L (133-145) POC Potassium 4.9 (3.3-5.1) POC Chloride 93 L (96-108) POC Total CO2 29.0 (22-30) POC BUN 39 H (6-20) POC Creatinine 1.2 (0.6-1.2) POC Glucose 553 H* (70-105) POC WB Ioniz Calcium 0.99 L (1.16-1.32) Procalcitonin 0.10 H (<0.10) ng/mL 07/08/22 07/08/22 Range/Units 14:40 16:20 WBC (4.5-11.0) K/mcL RBC (3.59-5.38) M/mcL Hgb (11.2-15.7) g/dL Hct (34.1-44.9) % POC Hct (36-48) MCV (80.0-100.0) fL MCH (26.0-34.0) pg MCHC (31.0-36.0) g/dL RDW (11.5-14.5) % Plt Count (140-440) K/mcL MPV (8.8-12.5) fL Immature Gran % (Auto) (0.0-0.5) % Neut % (Auto) (38.0-78.0) % Lymph % (Auto) (15.5-49.0) % [place] % (Auto) (1.0-12.0) % Eos % (Auto) (0.0-7.0) % Baso % (Auto) (0.0-2.0) % Lymph # (Auto) (1.50-4.80) K/mcL [place] # (Auto) (0.10-0.90) K/mcL Eos # (Auto) (0.00-0.70) K/mcL Baso # (Auto) (0.00-0.30) K/mcL Immature Gran # (0.00-0.05) K/mcl Absolute Neutrophils (1.80-8.00) K/mcL POC VBG pH 7.48 H 7.42 (7.32-7.42) POC VBG pCO2 at Temp 43.4 47.9 (41-51) POC VBG pO2 62 H 43 H (25-40) POC VBG HCO3 32.4 H 31.1 H (24-28) POC VBG Total CO2 34.0 H 33.0 H (25-29) POC Venous O2 Sat 93.0 H 78.0 H (40-70) POC VBG Base Excess 9.0 H* 7.0 H* (-2-2) VBG Lactic Acid 3.5 H 3.1 H (0.5-2) POC Sodium (133-145) POC Potassium (3.3-5.1) POC Chloride (96-108) POC Total CO2 (22-30) POC BUN (6-20) POC Creatinine (0.6-1.2) POC Glucose (70-105) POC WB Ioniz Calcium (1.16-1.32) Procalcitonin (<0.10) ng/mL ED POC Tests ED POC Tests: MARA - Influenza A Negative MARA - Influenza B Negative MARA - SARS Antigen Negative Radiology Data Radiology results reviewed: Yes I reviewed the patient's radiology results. Radiology results narrative: Chest x-ray obtained with image reviewed myself, no acute findings EKG Data EKG #1: EKG attestation: Yes I reviewed and interpreted this EKG. EKG shows normal: sinus rhythm Rate: tachycardia (114) Rhythm: NSR [place]/QRS: normal Heart block present: None ST segment elevation in: None ST segment depression in: None Interpretation: no acute changes Core Measures AMI Core Measures Followed: Yes Discharge Plan Patient/Caregiver Discharge Instructions Pt seen by ANIMAL ASSISTANT/PA only: No Clinical Impression: Sepsis, UTI (urinary tract infection), Hyperosmolar hyperglycemic state (HHS) Patient Disposition: Xfer As Inpt ([facility]) Condition: Fair Follow up with: Mookie Paiz MD [Primary Care Provider] - Prescriptions: No Action Eliquis 5 mg tablet 5 mg PO BID Qty: 60 5RF (DME) syringe with needle, safety 3 mL 25 gauge x 1" syringe See Rx Instructions .Route Qty: 100 4RF Rx Instructions: Use with Regonol to inject IM q6hrs doxycycline monohydrate 100 mg capsule 100 mg PO BID 90 Days Qty: 180 1RF (DME) insulin syringe-needle U-100 1 mL 32 gauge x 5/16" syringe See Rx Instructions .Route Qty: 100 0RF Rx Instructions: Use with Lantus BID (DME) pen needle, diabetic [BD Ultra-Fine Concepcion Pen Needle] 32 gauge x 5/32" needle See Rx Instructions .Route Qty: 200 5RF Rx Instructions: Use up to 6 injections per day cyclobenzaprine 10 mg tablet 10 mg PO Q6H PRN (Reason: Muscle Pain) Qty: 120 5RF Hold Instructions: Doctor's Order pyridostigmine bromide 60 mg tablet 60 mg PO QID Qty: 120 5RF omeprazole 20 mg capsule,delayed release(DR/EC) 20 mg PO QDAY Qty: 30 1RF gabapentin 300 mg capsule 300 mg PO QID 30 Days Qty: 360 1RF duloxetine 30 mg capsule,delayed release(DR/EC) 30 mg PO BID Qty: 180 1RF insulin lispro [Humalog KwikPen Insulin] 100 unit/mL insulin pen 1 sliding scale dose subcut TID Qty: 45 1RF Rx Instructions: max per day 50 units calcitriol 0.25 mcg capsule See Rx Instructions .ROUTE .COMPLEX Qty: 15 6RF Dose Instruction: TAKE ONE CAPSULE BY MOUTH ON SATURDAY, SATURDAY AND SATURDAY FOR SUPPLEMENT Rx Instructions: TAKE ONE CAPSULE BY MOUTH ON SATURDAY, SATURDAY AND SATURDAY FOR SUPPLEMENT prednisone 20 mg tablet 20 mg PO [facility] Qty: 90 0RF (DME) Contour Next Test Strips Strip See Rx Instructions .ROUTE .COMPLEX Qty: 300 3RF Dose Instruction: FOR DIABETES; USE 4 TIMES DAILY Rx Instructions: FOR DIABETES; USE 4 TIMES DAILY levothyroxine 200 mcg tablet 200 mcg PO QDAY Qty: 90 1RF insulin glargine [Lantus Solostar U-100 Insulin] 100 unit/mL (3 mL) insulin pen 5 unit subcut QPM Qty: 15 2RF baclofen 10 mg tablet 5 mg PO TID 30 Days Qty: 45 2RF calcium 1,000 mg PO BID ondansetron 4 MG tablet 4 mg SL Q4HP PRN (Reason: Nausea) promethazine 50 mg Tablet 50 mg PO DAILY PRN (Reason: Nausea And Vomiting) Glucagon (HCl) Emergency Kit 1 mg Recon Soln 1 mg IM Q15M PRN (Reason: Hypoglycemia) Rx Instructions: give only if unconscious and hypoglycemia confirmed magnesium 500 mg Tablet 1,000 mg PO QDAY Women's Multivitamin 18 mg iron-400 mcg-500 mg Tablet 1 tab PO DAILY
[2022-07-08 14:44] LABS: POC Calcium, Ionized 0.99 (1.16-1.32); POC Creatinine 1.2 (0.6-1.2); POC Potassium 4.9 (3.3-5.1)
--- NOTE | 2022-07-08 15:23 | XRay Report ---
HISTORY: Cough, dizziness FINDINGS: Right diaphragm is moderately elevated. This is a chronic stable finding. Thin linear bands of scar tissue are present at both lung bases. There is also a calcified granuloma centrally in the right lower thorax. There is no acute infiltrate. No suspicious mass is developed. The heart size and pulmonary vasculature are normal. There has been a prior sternotomy. There is a residual catheter fragment in the mediastinum extending from the subclavian vein to the top of the right atrium. This has not migrated since the prior exam done on 05/29/21. There is no mediastinal widening. IMPRESSION: No acute abnormality Interpreted and Authenticated by: Zay Juarez 07/08/22
[2022-07-08 15:31] LABS: Basophils # (Auto) 0.05 K/mcL (0.00-0.30); Basophils % (Auto) 0.3 % (0.0-2.0); Eosinophils # (Auto) 0.03 K/mcL (0.00-0.70); Eosinophils % (Auto) 0.2 % (0.0-7.0); Hematocrit 42.2 % (34.1-44.9); Hemoglobin 13.2 g/dL (11.2-15.7); Lymphocytes # (Auto) 1.27 K/mcL (1.50-4.80); Lymphocytes % (Auto) 8.6 % (15.5-49.0); Mean Cell Volume 92.3 fL (80.0-100.0); Mean Corpuscular HGB Conc 31.3 g/dL (31.0-36.0); Mean Platelet Volume 9.9 fL (8.8-12.5); Monocytes # (Auto) 0.44 K/mcL (0.10-0.90); Neutrophils % (Auto) 86.5 % (38.0-78.0); Platelet Count 426 K/mcL (140-440); RBC 4.57 M/mcL (3.59-5.38); Red Cell Distribution Width 14.3 % (11.5-14.5); WBC 14.7 K/mcL (4.5-11.0)
[2022-07-08] MEDS ORDERED: cefTRIAXone 2 GM in DEXTROSE 5% IN WATER 50 ML IV ONE (15:42)
[2022-07-08] MEDS ORDERED: VANCOMYCIN 1,000 MG in 0.9 % SODIUM CHLORIDE 250 ML IV ONE (15:43)
[2022-07-08] MEDS ORDERED: INSULIN REGULAR, HUMAN 1 UNIT/0.01 ML UNIT IV ONE (15:44)
[2022-07-08] MEDS ORDERED: 0.9 % SODIUM CHLORIDE 1,000 ML IV ONE (16:01)
[2022-07-08 17:16] LABS: Appearance,Urine HAZY (Clear); Bacteria,Urine MOD /hpf (0); Bilirubin,Urine Negative (Negative); Color,Urine YELLOW; Culture Indicated,Urine yes; Glucose,Urine (UA) >=500 mg/dL (Negative); Ketones,Urine 5 mg/dL (Negative); Leukocyte Esterase,Urine 25 /uL (Negative); Mucus,Urine FEW /hpf; Nitrate,Urine POS (Negative); Protein,Urine Negative (Negative); Specific Gravity,Urine 1.024 (1.000-1.035); Urine Blood 0.03 mg/dL (Negative); Urine Budding Yeast MANY /hpf; Urine Hyaline Cast 4 /lph (0-2); Urine RBC 6 /hpf (0-3); Urine Squamous Epithelial Cell 2 /hpf (0-4); Urine WBC 14 /hpf (0-4); Urobilinogen,Urine Negative
--- NOTE | 2022-07-08 17:23 | Internal Med History&Physical ---
HPI History of Present Illness Patient information: Note initiated : 07/08/22 at 5:15 pm Service Date, if different from initiated Date: [] Patient: Dayanna Guo a 61 y/o F admitted on for uti, . Chief Complaint: [] Chief complaint: Dizziness, general weakness, nausea, diaphoresis, dysuria History of present illness: Ms. Guo is a 61 year old F history of myasthenia gravis, type 2 diabetes mellitus, hypothyroidism, morbid obesity, presenting with 1 week history of dizziness, general weakness, nausea, diaphoresis, dysuria. She is insulin- dependent and she is compliant to her insulin regimen yet her blood sugar still elevated consistently over the same period of time. She is to have good appetite. She decided to came to our ED for further checkup due to the persistence and worsening nature of the symptoms aforementioned. Vital signs significant for tachycardia with heart rate up to the 1 teens beats per minutes. Rest of the vital signs within normal limits. Labs significant for leukocytos is with WBC 14.7. Elevated blood glucose at 553. pH 7.42. Serum bicarb 29. Anion gap 10. Lactic acid 3.5 with repeat of 3.1. Urine analysis positive for nitrates and leukocyte esterase suggestive the presence of urinary tract infections. Chest x-ray clear. Constitutional Constitutional: Present excessive sweating and weakness; Absent chills, fatigue or fever(s) EENT Eyes: Absent blurry vision, change in vision, loss of vision or other visual disturbances Ears: Absent decreased hearing or tinnitus Nose, mouth and throat: Absent abnormal hearing, dry mouth, headache(s), nasal congestion or sore throat Cardiovascular Cardiovascular: Absent chest pain, chest pain at rest, edema, irregular heart rhythm or palpatations Respiratory Respiratory: Absent cough, dyspnea or wheezing Gastrointestinal Gastrointestinal: Present nausea; Absent abdominal pain, constipation, diarrhea or vomiting Genitourinary Genitourinary: Present dysuria Musculoskeletal Musculoskeletal: Absent back pain, deformity, limited range of motion, muscle cramps, muscle weakness or numbness Integumentary Integumentary: Absent lesions, rash or wounds Neurological Neurological: Present dizziness; Absent focal weakness, headache(s) or numbness Psychiatric Psychiatric: Absent anxiety, depression or hallucinations PFSH PFSH All Active Problems (Updated 07/08/22 @ 17:21 by Jt Spring MD) Clinical sepsis (Acute) Hyperglycemia due to type 2 diabetes mellitus (Acute) Myasthenia gravis (Chronic) Sarcoidosis (Chronic) Hypothyroidism (Chronic) Hypertension (Chronic) Abnormal liver enzymes (Chronic) Chronic use of steroids (Chronic) Recurrent intestinal obstruction (Chronic) Obesity, Class II, BMI 35-39.9 (Chronic) Diabetes mellitus type 2, uncontrolled (Chronic) Chronic intestinal pseudo-obstruction (Chronic) Abdominal pain (Chronic) Chronic, continuous use of opioids (Chronic) LA (obstructive sleep apnea) (Chronic) Recurrent abdominal pain (Chronic) Sinus tachycardia (Chronic) Low blood magnesium level (Chronic) Hypocalcemia (Chronic) Elevated LFTs (Chronic) Electrolyte abnormality (Chronic) Small bowel obstruction (Chronic) Dehydration (Chronic) Primary chronic pseudo-obstruction of small intestine (Chronic) Nausea & vomiting (Chronic) Diabetic ketoacidosis (Chronic) Severe sepsis (Chronic) 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 (Chronic) Acute UTI (Chronic) Hypercalcemia (Chronic) COVID-19 (Chronic) Acute kidney injury (Chronic) Elevated serum creatinine (Chronic) Low back pain (Chronic) Partial small bowel obstruction (Chronic) Hypokalemia (Chronic) Diabetes mellitus (Chronic) Intractable abdominal pain (Chronic) Intractable vomiting with nausea (Chronic) Small bowel ischemia (Chronic) Pneumatosis intestinalis (Chronic) Right knee sprain (Chronic) Generalized weakness (Chronic) Hypercalcemia (Chronic) Acute hyperkalemia (Chronic) Leukocytosis (Chronic) Acidosis, lactic (Chronic) Fever of unknown origin (Chronic) Metabolic acidosis with normal anion gap and failure of bicarbonate regeneration (Chronic) Hyponatremia with decreased serum osmolality (Chronic) Ileostomy status (Chronic) Hypophosphatemia (Chronic) Bacteremia (Chronic) Hypoparathyroidism, unspecified (Chronic) SBO (small bowel obstruction) (Chronic) Anemia (Chronic) Acute hyperglycemia (Chronic) Acute dehydration (Chronic) Chronic iron deficiency anemia (Chronic) UTI (urinary tract infection) (Chronic) THANIA (acute kidney injury) (Chronic) Acute confusion (Chronic) Acute hyponatremia (Chronic) Acute delirium (Chronic) Myasthenia gravis (Chronic) Sepsis (Chronic) Morbid obesity (Chronic) Sepsis (Acute) UTI (urinary tract infection) (Acute) Hyperosmolar hyperglycemic state (HHS) (Acute) Medical History Abdominal pain Abdominal wound dehiscence Abnormal liver enzymes Achalasia and cardiospasm Acute respiratory insufficiency Adverse reaction to drug Anaphylaxis Bowel obstruction Chronic intestinal pseudo-obstruction If no mechanical obstruction, patient says cholinesterase inhibitors usually works Linzess is another possibility Octreotide has helped in children Chronic use of steroids for myasthenia gravis; 10+ years, she started using steroids in 2002. Chronic, continuous use of opioids Need to minimize or stop as they are confusing the bowel issue Constipation due to neurogenic bowel Constipation due to pain medication therapy Dehydration Diabetes mellitus type 2, uncontrolled Encounter for care related to Port-a-Cath Fecal impaction Foot sprain Hypercalcemia Hypertension Hypocalcemia Hyponatremia Hypothyroidism Ileus Infiltrate of lung present on imaging of chest Intractable vomiting Lactic acid acidosis Low blood magnesium level Morbid obesity Myasthenia gravis Prednisone dependent at 20 mg daily. 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 Obstruction of descending colon LA (obstructive sleep apnea) Pancreatitis Parastomal hernia with obstruction, without gangrene Partial intestinal obstruction, unspecified as to cause Partial small bowel obstruction Pneumonia Polyglandular autoimmune syndrome I see no dental or nail dystrophy to suggest Type 1 polyglandular failure which is the only type associated with HYPOPARATHYROIDISM and no autoimmune adrenalitis. I have not read that MG is a feature and it's not clear that her thyroid disease is autoimmune in nature. So I'm skeptical of this Dx Primary chronic pseudo-obstruction of large intestine Pseudoobstruction of colon Pyelonephritis Recurrent abdominal pain Recurrent intestinal obstruction many recurrences; many surgical interventions Sarcoidosis Said to be present due to "granuloma's on hands" Check RADHA level On steroids forever for her MG Sepsis Sepsis associated hypotension Sepsis with acute hypoxic respiratory failure Sigmoid volvulus Sinus tachycardia Small bowel obstruction due to adhesions Small bowel obstruction due to postoperative adhesions Small bowel obstruction, partial Supraventricular tachycardia UTI (urinary tract infection) Volvulus of sigmoid colon Surgical History History of cholecystectomy (~2000) History of exploratory laparotomy 10/17/2017-with adhesiolysis; 12/01/2017-with adhesiolysis; 07/18/2018; 08/10/2018-Exploratory laparotomy with small bowel adhesiolysis and incisional hernia repair with mesh graft; 11/30/2020-with total intr aabdominal adhesiolysis History of meniscal tear (~2007) right knee History of thymectomy (~2002) History of tonsillectomy S/P ileostomy Family History Father CAD (coronary artery disease) Mother CAD (coronary artery disease) Diabetes Grandfather CVA (cerebral vascular accident) HTN (hypertension) Paternal Grandmother CVA (cerebral vascular accident) Dementia Maternal HTN (hypertension) Paternal Bone cancer Maternal Cancer of back Paternal Aunt Diabetes Breast cancer Uncle Diabetes Brain cancer Social History marital status: smoking status: Never smoker alcohol intake frequency: does not drink substance use type: does not use MEDS/ALLERGIES Home Medications and Allergies Home Medications Medication Instructions Recorded Confirmed Type ondansetron 4 mg disintegrating 4 mg SL Q4HP PRN Nausea 12/24/19 06/15/22 History tablet promethazine 50 mg tablet 50 mg PO DAILY PRN Nausea And 01/27/21 06/15/22 History Vomiting glucagon HCl 1 mg solution for 1 mg IM Q15M PRN Hypoglycemia 02/07/21 06/15/22 History injection (Glucagon (HCl) Emergency Kit) magnesium 500 mg tablet 1,000 mg PO QDAY 02/21/21 06/15/22 History [id number] carb-vit K 1 tab PO DAILY 05/22/21 06/15/22 History 18 mg iron-400 mcg-500 mg tablet (Women's Multivitamin) apixaban 5 mg tablet (Eliquis) 5 mg PO BID #60 tabs 07/25/21 06/15/22 Rx syringe with needle, safety 3 mL #100 ea 11/01/21 06/15/22 Rx 25 gauge x 1" doxycycline monohydrate 100 mg 100 mg PO BID Chronic catheter 11/14/21 06/15/22 Rx capsule sepsis 90 days #180 caps insulin syringe-needle U-100 1 mL #100 ea 12/05/21 06/15/22 Rx 32 gauge x 5/16" pen needle, diabetic 32 gauge x #200 ea 12/07/21 06/15/22 Rx 5/32" (BD Ultra-Fine Concpecion Pen Needle) cyclobenzaprine 10 mg tablet 10 mg PO Q6H PRN Muscle Pain #120 12/11/21 06/15/22 Rx tabs calcium 1,000 mg PO BID 02/01/22 06/15/22 History pyridostigmine bromide 60 mg tablet 60 mg PO QID #120 tabs 02/26/22 06/15/22 Rx omeprazole 20 mg capsule,delayed 20 mg PO QDAY #30 caps 03/06/22 06/15/22 Rx release insulin glargine 100 unit/mL (3 5 unit (0.05 mL) subcut QPM #15 mL 04/06/22 06/15/22 Rx mL) subcutaneous pen (Lantus Solostar U-100 Insulin) duloxetine 30 mg capsule,delayed 30 mg PO BID #180 caps 04/12/22 06/15/22 Rx release gabapentin 300 mg capsule 300 mg PO QID 30 days #360 caps 04/12/22 06/15/22 Rx insulin lispro 100 unit/mL 1 sliding scale dose subcut TID 04/12/22 06/15/22 Rx subcutaneous pen (Humalog KwikPen #45 Syringes (U-100) Insulin) calcitriol 0.25 mcg capsule See Rx Instructions .Route 05/15/22 06/15/22 Rx .COMPLEX #15 caps prednisone 20 mg tablet 20 mg PO [facility] #90 tabs 05/22/22 06/15/22 Rx blood sugar diagnostic (Contour #300 ea 06/14/22 06/15/22 Rx Next Test Strips) baclofen 10 mg tablet 5 mg PO TID 30 days #45 tabs 06/15/22 06/15/22 Rx levothyroxine 200 mcg tablet 200 mcg PO QDAY #90 tabs 06/19/22 Rx Allergies Allergy/AdvReac Type Severity Reaction Status Date / Time Sulfa (Sulfonamide Allergy Severe Anaphylaxis Verified 07/08/22 14:23 Antibiotics) metoclopramide [From Reglan] AdvReac Severe Anxiety Verified 07/08/22 14:23 adhesive tape AdvReac Mild Blister Verified 07/08/22 14:23 steri strips AdvReac Mild Blister Uncoded 06/15/22 08:08 EXAM Constitutional Vitals: Temp Pulse Resp BP Pulse Ox O2 Del Method O2 Flow Rate 36.4 C 98 H 14 127/65 100 2 07/08/22 14:20 07/08/22 16:47 07/08/22 16:47 07/08/22 16:46 07/08/22 16:47 07/08/22 15:21 07/08/22 15:21 General appearance: cooperative, morbidly obese and no acute distress Head Head exam: Present atraumatic and normocephalic Eye Eye exam: Present EOMI and PERRL ENT ENT exam: Present mucous membranes moist, normal exam and normal external ear exam Neck Neck exam: Present normal inspection; Absent lymphadenopathy, tenderness or thyromegaly Respiratory Respiratory exam: Absent accessory muscle use, respiratory distress or wheezes Cardiovascular Cardiovascular exam: Present normal rate and rhythm; Absent JVD GI/Abdominal GI/Abdominal exam: Present normal bowel sounds and soft; Absent organomegaly or tenderness Extremities Exam Extremities exam: Present full ROM, normal capillary refill and normal inspection; Absent tenderness Neurological Exam Neurological exam: Present alert, CN II-XII intact and oriented X3; Absent motor sensory deficit Psychiatric Psychiatric exam: Present normal affect and normal mood; Absent anxious or depressed Skin Skin exam: Present dry and intact DATA Data Completed and Pending Labs: Labs from last 24 hours 07/08/22 07/08/22 07/08/22 16:20 16:15 14:40 WBC RBC Hgb Hct POC Hct MCV MCH MCHC RDW Plt Count MPV Immature Gran % (Auto) Neut % (Auto) Lymph % (Auto) [place] % (Auto) Eos % (Auto) Baso % (Auto) Lymph # (Auto) [place] # (Auto) Eos # (Auto) Baso # (Auto) Immature Gran # Absolute Neutrophils POC VBG pH 7.42 7.48 H POC VBG pCO2 at Temp 47.9 43.4 POC VBG pO2 43 H 62 H POC VBG HCO3 31.1 H 32.4 H POC VBG Total CO2 33.0 H 34.0 H POC Venous O2 Sat 78.0 H 93.0 H POC VBG Base Excess 7.0 H* 9.0 H* VBG Lactic Acid 3.1 H 3.5 H POC Sodium POC Potassium POC Chloride POC Total CO2 POC BUN POC Creatinine POC Glucose POC WB Ioniz Calcium Beta-Hydroxybutyrate Procalcitonin Urine Color Pending Urine Appearance Pending Urine pH Pending Ur Specific [place] Pending Urine Protein Pending Urine Glucose (UA) Pending Urine Ketones Pending Urine Occult Blood Pending Urine Nitrate Pending Urine Bilirubin Pending Urine Urobilinogen Pending Ur Leukocyte Esterase Pending 07/08/22 07/08/22 07/08/22 14:39 14:39 14:39 WBC RBC Hgb Hct POC Hct 44.0 MCV MCH MCHC RDW Plt Count MPV Immature Gran % (Auto) Neut % (Auto) Lymph % (Auto) [place] % (Auto) Eos % (Auto) Baso % (Auto) Lymph # (Auto) [place] # (Auto) Eos # (Auto) Baso # (Auto) Immature Gran # Absolute Neutrophils POC VBG pH POC VBG pCO2 at Temp POC VBG pO2 POC VBG HCO3 POC VBG Total CO2 POC Venous O2 Sat POC VBG Base Excess VBG Lactic Acid POC Sodium 132 L POC Potassium 4.9 POC Chloride 93 L POC Total CO2 29.0 POC BUN 39 H POC Creatinine 1.2 POC Glucose 553 H* POC WB Ioniz Calcium 0.99 L Beta-Hydroxybutyrate 0.61 H Procalcitonin 0.10 H Urine Color Urine Appearance Urine pH Ur Specific [place] Urine Protein Urine Glucose (UA) Urine Ketones Urine Occult Blood Urine Nitrate Urine Bilirubin Urine Urobilinogen Ur Leukocyte Esterase 07/08/22 14:39 WBC 14.7 H RBC 4.57 Hgb 13.2 Hct 42.2 POC Hct MCV 92.3 MCH 28.9 MCHC 31.3 RDW 14.3 Plt Count 426 MPV 9.9 Immature Gran % (Auto) 1.4 H Neut % (Auto) 86.5 H Lymph % (Auto) 8.6 L [place] % (Auto) 3.0 Eos % (Auto) 0.2 Baso % (Auto) 0.3 Lymph # (Auto) 1.27 L [place] # (Auto) 0.44 Eos # (Auto) 0.03 Baso # (Auto) 0.05 Immature Gran # 0.21 H Absolute Neutrophils 12.69 H POC VBG pH POC VBG pCO2 at Temp POC VBG pO2 POC VBG HCO3 POC VBG Total CO2 POC Venous O2 Sat POC VBG Base Excess VBG Lactic Acid POC Sodium POC Potassium POC Chloride POC Total CO2 POC BUN POC Creatinine POC Glucose POC WB Ioniz Calcium Beta-Hydroxybutyrate Procalcitonin Urine Color Urine Appearance Urine pH Ur Specific [place] Urine Protein Urine Glucose (UA) Urine Ketones Urine Occult Blood Urine Nitrate Urine Bilirubin Urine Urobilinogen Ur Leukocyte Esterase A/P Assessment and plan (1) Myasthenia gravis: Status: Chronic Comment: Prednisone dependent at 20 mg daily. 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 UTI with clinical sepsis: Inpatient med surg s/p IV fluid boluses given in the ED, to be followed by NS@100cc/hr Serial lactic acid Procalcitonin Blood culture Urine culture cbc w/ auto diff in the morning to trend WBC Rocephin Physical therapy 2. Hyperglycemia with T2DM: HgA1c Patient uses Lantus 13 unit HS, will increase to 20 unit HS for better glycemic control High scale Insulin Lispro SSI AC HS Accu Chek AC HS Hypoglycemia protocol Diabetic diet Diabetes education 3. Myasthenia gravis Prednisone Pyridostigmine Physical therapy 4. Hypothyroidism: Continue oral thyroid replacement 5. 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
[2022-07-08] MEDS ORDERED: ACETAMINOPHEN 325 MG TABLET PO PRN (17:39)
[2022-07-08] MEDS ORDERED: PROMETHAZINE 25 MG/ML VIAL IV PRN (17:39)
[2022-07-08] MEDS ORDERED: DEXTROSE 50% 50 ML VIAL IV PRN (17:39)
[2022-07-08] MEDS ORDERED: traZODone HCL 50 MG TABLET PO PRN (17:39)
[2022-07-08] MEDS ORDERED: IPRATROPIUM/ALBUTEROL 3 ML AMPUL.NEB NEB PRN (17:39)
[2022-07-08] MEDS ORDERED: DEXTROSE 31 GM ORAL.SUSP PO PRN (17:39)
[2022-07-08] MEDS ORDERED: ONDANSETRON 4 MG/2 ML VIAL IV PRN (17:39)
[2022-07-08] MEDS ORDERED: PHENobarb/HYOSCY/ATROPINE/SCOP 1 DOSE BOTTLE PO PRN (17:44)
[2022-07-08] MEDS: 0.9 % SODIUM CHLORIDE 1,000 ML IV SCH (18:19)
[2022-07-08] MEDS ORDERED: CYCLOBENZAPRINE 10 MG TABLET PO PRN (18:55)
[2022-07-08 19:08] LABS: Estimated Average Glucose(eAG) 255 mg/dL; Hemoglobin A1C 10.5 % Hgb (4.0-6.0)
[2022-07-08] MEDS: APIXABAN 5 MG TABLET PO SCH (20:53)
[2022-07-08] MEDS: CALCIUM (OYSTER SHELL) 500 MG TABLET PO SCH (20:53)
[2022-07-08] MEDS: GABAPENTIN 300 MG CAPSULE PO SCH (20:54)
[2022-07-08] MEDS: INSULIN GLARGINE, HUMAN 1 UNIT/0.01 ML SQ SCH (20:54)
[2022-07-08] MEDS: DULoxetine 30 MG CAPSULE PO SCH (20:54)
[2022-07-08] MEDS: INSULIN LISPRO 1 UNIT/0.01 ML UNIT SQ SCH (20:54)
[2022-07-08] MEDS: SENNOSIDES 1 TABLET PO SCH (20:55)
[2022-07-08] MEDS: PYRIDOSTIGMINE 60 MG TABLET PO SCH (20:55)
[2022-07-08] MEDS: BACLOFEN 10 MG TABLET PO SCH (20:55)
[2022-07-08] MEDS: DOCUSATE SODIUM 100 MG CAPSULE PO SCH (20:55)
[2022-07-08] MEDS: 0.9 % SODIUM CHLORIDE 10 ML SYRINGE IV SCH (20:56)
[2022-07-09] MEDS: 0.9 % SODIUM CHLORIDE 1,000 ML IV SCH ×4 (03:45→23:47)
[2022-07-09] MEDS: 0.9 % SODIUM CHLORIDE 10 ML SYRINGE IV SCH ×3 (06:16→20:34)
[2022-07-09 07:08] LABS: Basophils # (Auto) 0.05 K/mcL (0.00-0.30); Basophils % (Auto) 0.6 % (0.0-2.0); Eosinophils % (Auto) 2.2 % (0.0-7.0); Hematocrit 35.6 % (34.1-44.9); Hemoglobin 10.7 g/dL (11.2-15.7); Lymphocytes # (Auto) 1.99 K/mcL (1.50-4.80); Lymphocytes % (Auto) 22.2 % (15.5-49.0); Mean Cell Volume 95.4 fL (80.0-100.0); Mean Corpuscular HGB Conc 30.1 g/dL (31.0-36.0); Mean Platelet Volume 9.5 fL (8.8-12.5); Monocytes # (Auto) 0.83 K/mcL (0.10-0.90); Monocytes % (Auto) 9.3 % (1.0-12.0); Neutrophils % (Auto) 64.3 % (38.0-78.0); Platelet Count 316 K/mcL (140-440); RBC 3.73 M/mcL (3.59-5.38); Red Cell Distribution Width 14.4 % (11.5-14.5)
[2022-07-09 07:17] LABS: ALT/SGPT 23 U/L (<40); AST/SGOT 17 U/L (<32); Albumin 2.5 gm/dL (3.2-5.2); Albumin/Globulin Ratio 0.8 (1.0-2.3); Alkaline Phosphatase 90 U/L (39-117); Bilirubin,Total < 0.2 mg/dL (0.1-1.0); Blood Urea Nitrogen 23 mg/dL (6-20); Calcium 7.2 mg/dL (8.6-10.4); Carbon Dioxide 25 mmol/L (22-30); Chloride 102 mmol/L (96-108); Glomerular Filtration Rate 69; Glucose 174 mg/dL (70-105); Phosphorous 4.1 mg/dL (2.5-4.5)
[2022-07-09] MEDS: predniSONE 20 MG TABLET PO SCH (07:20)
[2022-07-09] MEDS: LEVOTHYROXINE 100 MCG TABLET PO SCH (07:20)
[2022-07-09] MEDS: INSULIN LISPRO 1 UNIT/0.01 ML UNIT SQ SCH ×4 (07:25→20:33)
[2022-07-09] MEDS: APIXABAN 5 MG TABLET PO SCH ×2 (08:55→20:32)
[2022-07-09] MEDS: DULoxetine 30 MG CAPSULE PO SCH ×2 (08:55→20:32)
[2022-07-09] MEDS: GABAPENTIN 300 MG CAPSULE PO SCH ×4 (08:55→20:31)
[2022-07-09] MEDS: cefTRIAXone 2 GM in DEXTROSE 5% IN WATER 50 ML IV SCH (08:55)
[2022-07-09] MEDS: PYRIDOSTIGMINE 60 MG TABLET PO SCH ×4 (08:55→20:52)
[2022-07-09] MEDS: DOCUSATE SODIUM 100 MG CAPSULE PO SCH ×2 (08:55→20:33)
[2022-07-09] MEDS: OMEPRAZOLE 20 MG CAPSULE PO SCH (08:56)
[2022-07-09] MEDS: MULTIVIT,THER IRON,CA,FA & MIN 1 TABLET PO SCH (08:56)
[2022-07-09] MEDS: MAGNESIUM OXIDE 400 MG TABLET PO SCH (08:56)
[2022-07-09] MEDS: BACLOFEN 10 MG TABLET PO SCH ×3 (08:56→20:32)
[2022-07-09] MEDS: CALCIUM (OYSTER SHELL) 500 MG TABLET PO SCH ×2 (08:56→20:32)
--- NOTE | 2022-07-09 12:02 | Internal Med Progress Note ---
SUBJECTIVE Subjective Patient information: Note initiated : 07/09/22 at 11:58 am Service Date, if different from initiated Date: [] Patient: Dayanna Guo a 61 y/o F admitted on 07/08/22 for uti, bs . Chief Complaint: [] Interval history: Ms. Guo is a 61 year old F history of myasthenia gravis, type 2 diabetes mellitus, hypothyroidism, morbid obesity, presenting with 1 week history of dizziness, general weakness, nausea, diaphoresis, dysuria. She is insulin- dependent and she is compliant to her insulin regimen yet her blood sugar still elevated consistently over the same period of time. She is to have good appetite. She decided to came to our ED for further checkup due to the persistence and worsening nature of the symptoms aforementioned. Vital signs significant for tachycardia with heart rate up to the 1 teens beats per minutes. Rest of the vital signs within normal limits. Labs significant for leukocytosis with WBC 14.7. Elevated blood glucose at 553. pH 7.42. Serum bicarb 29. Anion gap 10. Lactic acid 3.5 with repeat of 3.1. Urine analysis positive for nitrates and leukocyte esterase suggestive the presence of urinary tract infections. Chest x-ray clear. 07/09: Low-grade fever T-max 37.6 overnight. Blood culture no growth today; urine culture growing gram-negative bacillus. Fasting glucose level this morning 161. Patient is still complaining of same degree of weakness. She is coming of diaphoresis. She denies any fever or chills. She is complaining of GI upset with epigastric region cramping. She is coming of dysuria. Continue Rocephin while monitoring blood and urine culture results. Patient has been educated by pollution control technician. Continue Lantus 20 units at bedtime and high scale correctional scale insulin AC adjust. Pending physical therapy evaluation and treatment. Constitutional Vitals: Vital Signs Temp Pulse Resp BP Pulse Ox O2 Del Method O2 Flow Rate 36.3 C 101 H 20 119/63 97 2 07/09/22 07:01 07/09/22 07:01 07/09/22 07:01 07/09/22 07:01 07/09/22 07:01 07/09/22 07:01 07/08/22 17:30 Period Temp Pulse Resp BP Sys/Archuleta Pulse Ox O2 Del Method O2 Flow Rate Last 24 Hr 36.3 C-37.6 C 93-126 9-29 36-156/22-94 89-100 Nasal Cannula- Room Air 2-2 Intake and Output 07/08/22 07/09/22 07/09/22 21:59 05:59 13:59 Intake Total 2940 1400 290 Output Total 400 1300 250 Balance 2540 100 40 Weight 120.202 kg Intake & Output: Intake & Output 07/08/22 07/09/22 07/09/22 21:59 05:59 13:59 Intake Total 2940 1400 290 Output Total 400 1300 250 Balance 2540 100 40 Weight 120.202 kg Intake: IV 2940 1000 50 Sodium Chloride 0.9% 1,000 ml @ 2640 1000 100 mls/hr IV .Q10H [facility] Rx#: [id number] Vancomycin 1,000 mg In Sodium 250 Chloride 0.9% 250 ml @ 250 mls/ hr IV ONCE ONE Rx#:[id number] Rocephin 2 gm In Dextrose 5% in 50 50 Water 50 ml @ 100 mls/hr IV Q24H [facility] Rx#:[id number] Oral 400 240 Output: Void Amount 400 600 250 Stool 700 Other: Meal Breakfast Percent of Meal Consumed 100% Urine Appearance Clear Clear Clear Sediment Urine Color Yellow Yellow Yellow General appearance: morbidly obese and no acute distress Head Head exam: Present atraumatic and normal inspection Eye Eye exam: Present normal appearance ENT ENT exam: Present mucous membranes moist, normal exam and normal external ear exam Neck Neck exam: Present normal inspection Respiratory Respiratory exam: Present normal respiratory exam Cardiovascular Cardiovascular exam: Present normal rate and rhythm GI/Abdominal GI/Abdominal exam: Present normal bowel sounds Back Exam Back exam: Present normal inspection Neurological Exam Neurological exam: Present alert and oriented X3 Skin Skin exam: Present intact and warm OBJ DATA Labs CBC & Chem 7: 07/09/22 05:37 07/09/22 05:37 Labs: Abnormal Lab Results 07/09/22 07/09/22 07/08/22 05:37 05:37 18:25 WBC Hgb 10.7 L MCHC 30.1 L Immature Gran % (Auto) 1.4 H Neut % (Auto) Lymph % (Auto) Lymph # (Auto) Immature Gran # 0.13 H Absolute Neutrophils POC VBG pH POC VBG pO2 POC VBG HCO3 POC VBG Total CO2 POC Venous O2 Sat POC VBG Base Excess VBG Lactic Acid POC Sodium POC Chloride POC BUN BUN 23 H Glucose 174 H POC Glucose Hemoglobin A1c Calcium 7.2 L POC WB Ioniz Calcium Total Protein 5.5 L Albumin 2.5 L Albumin/Globulin Ratio 0.8 L Beta-Hydroxybutyrate Procalcitonin 0.11 H Urine Appearance Urine Glucose (UA) Urine Ketones Urine Nitrate Ur Leukocyte Esterase Urine RBC Urine WBC Urine Bacteria Hyaline Casts Urine Mucus Urine Yeast (Budding) 07/08/22 07/08/22 07/08/22 18:25 16:20 16:15 WBC Hgb MCHC Immature Gran % (Auto) Neut % (Auto) Lymph % (Auto) Lymph # (Auto) Immature Gran # Absolute Neutrophils POC VBG pH POC VBG pO2 43 H POC VBG HCO3 31.1 H POC VBG Total CO2 33.0 H POC Venous O2 Sat 78.0 H POC VBG Base Excess 7.0 H* VBG Lactic Acid 3.1 H POC Sodium POC Chloride POC BUN BUN Glucose POC Glucose Hemoglobin A1c 10.5 H Calcium POC WB Ioniz Calcium Total Protein Albumin Albumin/Globulin Ratio Beta-Hydroxybutyrate Procalcitonin Urine Appearance Hazy A Urine Glucose (UA) >=500 A Urine Ketones 5 A Urine Nitrate Pos A Ur Leukocyte Esterase 25 A Urine RBC 6 H Urine WBC 14 H Urine Bacteria Mod A Hyaline Casts 4 H Urine Mucus Few A Urine Yeast (Budding) Many A 07/08/22 07/08/22 07/08/22 14:40 14:39 14:39 WBC Hgb MCHC Immature Gran % (Auto) Neut % (Auto) Lymph % (Auto) Lymph # (Auto) Immature Gran # Absolute Neutrophils POC VBG pH 7.48 H POC VBG pO2 62 H POC VBG HCO3 32.4 H POC VBG Total CO2 34.0 H POC Venous O2 Sat 93.0 H POC VBG Base Excess 9.0 H* VBG Lactic Acid 3.5 H POC Sodium 132 L POC Chloride 93 L POC BUN 39 H BUN Glucose POC Glucose 553 H* Hemoglobin A1c Calcium POC WB Ioniz Calcium 0.99 L Total Protein Albumin Albumin/Globulin Ratio Beta-Hydroxybutyrate 0.61 H Procalcitonin Urine Appearance Urine Glucose (UA) Urine Ketones Urine Nitrate Ur Leukocyte Esterase Urine RBC Urine WBC Urine Bacteria Hyaline Casts Urine Mucus Urine Yeast (Budding) 07/08/22 07/08/22 14:39 14:39 WBC 14.7 H Hgb MCHC Immature Gran % (Auto) 1.4 H Neut % (Auto) 86.5 H Lymph % (Auto) 8.6 L Lymph # (Auto) 1.27 L Immature Gran # 0.21 H Absolute Neutrophils 12.69 H POC VBG pH POC VBG pO2 POC VBG HCO3 POC VBG Total CO2 POC Venous O2 Sat POC VBG Base Excess VBG Lactic Acid POC Sodium POC Chloride POC BUN BUN Glucose POC Glucose Hemoglobin A1c Calcium POC WB Ioniz Calcium Total Protein Albumin Albumin/Globulin Ratio Beta-Hydroxybutyrate Procalcitonin 0.10 H Urine Appearance Urine Glucose (UA) Urine Ketones Urine Nitrate Ur Leukocyte Esterase Urine RBC Urine WBC Urine Bacteria Hyaline Casts Urine Mucus Urine Yeast (Budding) Meds: Medications Acetaminophen (Acetaminophen 325 Mg Tablet) 650 mg PO Q6HP PRN; Protocol PRN Reason: Per Pain Protocol/Fever > 101 Albuterol/Ipratropium (Ipratropium/Albuterol 3 Ml Ampul.Neb) 3 ml NEB Q4HRT PRN PRN Reason: Wheezing Apixaban (Apixaban 5 Mg Tablet) 5 mg PO BID [facility] Last Admin: 07/09/22 08:55 Dose: 5 mg Baclofen (Baclofen 10 Mg Tablet) 5 mg PO TID [facility] Last Admin: 07/09/22 08:56 Dose: 5 mg Belladonna/Phenobarbital (Phenobarb/Hyoscy/Atropine/Scop 1 Dose Bottle) 1 dose PO Q4HP PRN PRN Reason: Dyspepsia Calcitriol (Calcitriol 0.25 Mcg Capsule) 0.25 mcg PO TuThSa@0900 [facility] Calcium Carbonate/Glycine (Calcium (Oyster Shell) 500 Mg Tablet) 1,000 mg PO BID [facility] Last Admin: 07/09/22 08:56 Dose: 1,000 mg Cyclobenzaprine HCl (Cyclobenzaprine 10 Mg Tablet) 10 mg PO Q6HP PRN PRN Reason: Muscle Spasm Last Admin: 07/08/22 20:54 Dose: 10 mg Dextrose (Dextrose 50% 50 Ml Vial) 0 ml IV UD PRN PRN Reason: Per Sliding Scale Diagnostic Test (Pha) (Accu-Chek 1 Each Strip) 1 each FS ACHS [facility] Last Admin: 07/09/22 07:21 Dose: 1 each Docusate Sodium (Docusate Sodium 100 Mg Capsule) 100 mg PO BID [facility] Last Admin: 07/09/22 08:55 Dose: 100 mg Duloxetine HCl (Duloxetine 30 Mg Capsule) 30 mg PO BID [facility] Last Admin: 07/09/22 08:55 Dose: 30 mg Gabapentin (Gabapentin 300 Mg Capsule) 300 mg PO QID [facility] Last Admin: 07/09/22 08:55 Dose: 300 mg Glucose (Dextrose 31 Gm Oral.Susp) 15 gm PO PRN PRN PRN Reason: Hypoglycemia Sodium Chloride (Sodium Chloride 0.9%) 1,000 mls @ 100 mls/hr IV .Q10H [facility] Last Admin: 07/09/22 03:45 Dose: 100 mls/hr Ceftriaxone Sodium 2 gm/ (Dextrose) 50 mls @ 100 mls/hr IV Q24H [facility] Last Infusion: 07/09/22 09:43 Dose: Infused Insulin Glargine (Insulin Glargine, Human 1 Unit/0.01 Ml) 20 unit SQ [facility] Last Admin: 07/08/22 20:54 Dose: 20 unit Insulin Human Lispro (Insulin Lispro 1 Unit/0.01 Ml Unit) 0 unit SQ [facility]; Protocol Last Admin: 07/09/22 07:25 Dose: 3 unit Iron Carb/Multivit/Playground Official/Folic Acid (Multivit,Ther Iron,Ca,Fa & Min 1 Tablet) 1 tab PO DAILY [facility] Last Admin: 07/09/22 08:56 Dose: 1 tab Levothyroxine Sodium (Levothyroxine 100 Mcg Tablet) 200 mcg PO ACB [facility] Last Admin: 07/09/22 07:20 Dose: 200 mcg Magnesium Oxide (Magnesium Oxide 400 Mg Tablet) 800 mg PO DAILY [facility] Last Admin: 07/09/22 08:56 Dose: 800 mg Omeprazole (Omeprazole 20 Mg Capsule) 20 mg PO QDAY [facility] Last Admin: 07/09/22 08:56 Dose: 20 mg Ondansetron HCl (Ondansetron 4 Mg/2 Ml Vial) 4 mg IV Q6HP PRN PRN Reason: Nausea And Vomiting Prednisone (Prednisone 20 Mg Tablet) 20 mg PO [facility] Last Admin: 07/09/22 07:20 Dose: 20 mg Promethazine HCl (Promethazine 25 Mg/Ml Vial) 12.5 mg IV Q6HP PRN PRN Reason: Nausea And Vomiting Pyridostigmine [place] (Pyridostigmine 60 Mg Tablet) 60 mg PO QID [facility] Last Admin: 07/09/22 08:55 Dose: 60 mg Senna (Sennosides 1 Tablet) 2 tab PO HS [facility] Last Admin: 07/08/22 20:55 Dose: Not Given Sodium Chloride (0.9 % Sodium Chloride 10 Ml Syringe) 10 ml IV Q8 [facility] Last Admin: 07/09/22 06:16 Dose: Not Given Trazodone HCl (Trazodone Hcl 50 Mg Tablet) 25 mg PO [facility] PRN PRN Reason: Insomnia A/P Assessment and plan (1) Myasthenia gravis: Status: Chronic Comment: Prednisone dependent at 20 mg daily. 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 UTI with clinical sepsis: Inpatient med surg s/p IV fluid boluses given in the ED, to be followed by NS@100cc/hr Serial lactic acid Procalcitonin Blood culture, no growth to date Urine culture, gram negative bacillus cbc w/ auto diff in the morning to trend WBC Rocephin Physical therapy 2. Hyperglycemia with T2DM: HgA1c 10.5 Patient uses Lantus 13 unit HS, will increase to 20 unit HS for better glycemic control High scale Insulin Lispro SSI AC HS Accu Chek AC HS Hypoglycemia protocol Diabetic diet Diabetes education: done 3. Myasthenia gravis Prednisone Pyridostigmine Physical therapy 4. Hypothyroidism: Continue oral thyroid replacement 5. 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
[2022-07-09] MEDS ORDERED: INSULIN LISPRO 1 UNIT/0.01 ML UNIT SQ ONE (12:28)
--- NOTE | 2022-07-09 13:50 | EKG ---
[facility] Test Date: 2022-07-08 Pat Name: Dayanna Guo Department: ED Room: Gender: Female Proposal Review Analyst: TOVA : 1960 Requested By: Filiberto Gonzales Order Number: [id number] Reading MD: Desirae Simpson D.O. Measurements Intervals [place] Rate: 114 P: 59 HI: 127 QRS: 8 QRSD: 80 T: 59 QT: 319 QTc: 440 Interpretive Statements Sinus tachycardia Ventricular premature complex Electronically Signed On 07-09-2022 13:50:27 PDT by Desirae Simpson D.O. /store/[email or web address]/[id number]
[2022-07-09] MEDS: INSULIN GLARGINE, HUMAN 1 UNIT/0.01 ML SQ SCH (20:31)
[2022-07-09] MEDS: SENNOSIDES 1 TABLET PO SCH (20:34)
[2022-07-10] MEDS: 0.9 % SODIUM CHLORIDE 10 ML SYRINGE IV SCH (05:54)
[2022-07-10] MEDS: predniSONE 20 MG TABLET PO SCH (07:18)
[2022-07-10] MEDS: INSULIN LISPRO 1 UNIT/0.01 ML UNIT SQ SCH ×2 (07:19→12:27)
[2022-07-10] MEDS: LEVOTHYROXINE 100 MCG TABLET PO SCH (07:19)
[2022-07-10 07:52] LABS: Basophils # (Auto) 0.07 K/mcL (0.00-0.30); Basophils % (Auto) 0.7 % (0.0-2.0); Eosinophils # (Auto) 0.25 K/mcL (0.00-0.70); Eosinophils % (Auto) 2.4 % (0.0-7.0); Hematocrit 41.3 % (34.1-44.9); Hemoglobin 12.1 g/dL (11.2-15.7); Lymphocytes # (Auto) 2.57 K/mcL (1.50-4.80); Lymphocytes % (Auto) 24.6 % (15.5-49.0); Mean Cell Volume 96.7 fL (80.0-100.0); Mean Corpuscular HGB Conc 29.3 g/dL (31.0-36.0); Mean Platelet Volume 9.4 fL (8.8-12.5); Monocytes # (Auto) 0.96 K/mcL (0.10-0.90); Monocytes % (Auto) 9.2 % (1.0-12.0); Neutrophils % (Auto) 61.5 % (38.0-78.0); Platelet Count 339 K/mcL (140-440); RBC 4.27 M/mcL (3.59-5.38); Red Cell Distribution Width 14.2 % (11.5-14.5); WBC 10.4 K/mcL (4.5-11.0)
[2022-07-10 08:23] LABS: ALT/SGPT 28 U/L (<40); AST/SGOT 19 U/L (<32); Albumin 3.2 gm/dL (3.2-5.2); Albumin/Globulin Ratio 0.9 (1.0-2.3); Alkaline Phosphatase 108 U/L (39-117); Bilirubin,Total 0.2 mg/dL (0.1-1.0); Blood Urea Nitrogen 25 mg/dL (6-20); Calcium 8.8 mg/dL (8.6-10.4); Carbon Dioxide 21 mmol/L (22-30); Chloride 103 mmol/L (96-108); Globulin 3.5 gm/dL (2.2-3.7); Glomerular Filtration Rate 54; Glucose 241 mg/dL (70-105); Phosphorous 3.8 mg/dL (2.5-4.5)
[2022-07-10] MEDS: DOCUSATE SODIUM 100 MG CAPSULE PO SCH (08:54)
[2022-07-10] MEDS: MULTIVIT,THER IRON,CA,FA & MIN 1 TABLET PO SCH (08:55)
[2022-07-10] MEDS: BACLOFEN 10 MG TABLET PO SCH (08:55)
[2022-07-10] MEDS: MAGNESIUM OXIDE 400 MG TABLET PO SCH (08:56)
[2022-07-10] MEDS: DULoxetine 30 MG CAPSULE PO SCH (08:56)
[2022-07-10] MEDS: GABAPENTIN 300 MG CAPSULE PO SCH (08:57)
[2022-07-10] MEDS: OMEPRAZOLE 20 MG CAPSULE PO SCH (08:57)
[2022-07-10] MEDS: APIXABAN 5 MG TABLET PO SCH (08:57)
[2022-07-10] MEDS: CALCIUM (OYSTER SHELL) 500 MG TABLET PO SCH (08:58)
[2022-07-10] MEDS: PYRIDOSTIGMINE 60 MG TABLET PO SCH (08:58)
[2022-07-10] MEDS: cefTRIAXone 2 GM in DEXTROSE 5% IN WATER 50 ML IV SCH (08:58)
[2022-07-10] MEDS ORDERED: CALCITRIOL 0.25 MCG CAPSULE PO SCH (09:00)
--- NOTE | 2022-07-10 10:40 | Discharge Summary ---
Discharge Provider Provider IMPORTANT FOLLOW-UP INFORMATION FOR PCP: Patient information: Note initiated : 07/10/22 at 10:39 am Service Date, if different from initiated Date: [] Patient: Dayanna Guo a 61 y/o F admitted on 07/08/22 for uti, bs high. Chief Complaint: [] Date of admission: 07/08/22 17:30 Discharge date: 07/10/22 Primary care physician: Mookie Paiz MD Attending physician on admission: Jt Spring Consults: 07/08/22 Consult to Physician [CONS] Stat Comment: Consulting Provider: Jt Spring Reason For Exam: Physician to Consult Attending physician on discharge: Jt Carr Pujaun COURSE Hospital Course Hospital course: Ms. Guo is a 61 year old F history of myasthenia gravis, type 2 diabetes mellitus, hypothyroidism, morbid obesity, presenting with 1 week history of dizziness, general weakness, nausea, diaphoresis, dysuria. She is insulin- dependent and she is compliant to her insulin regimen yet her blood sugar still elevated consistently over the same period of time. She is to have good appetite. She decided to came to our ED for further checkup due to the persistence and worsening nature of the symptoms aforementioned. Vital signs significant for tachycardia with heart rate up to the 1 teens beats per minutes. Rest of the vital signs within normal limits. Labs significant for leukocytosis with WBC 14.7. Elevated blood glucose at 553. pH 7.42. Serum bicarb 29. Anion gap 10. Lactic acid 3.5 with repeat of 3.1. Urine analysis positive for nitrates and leukocyte esterase suggestive the presence of urinary tract infections. Chest x-ray clear. 07/09: Low-grade fever T-max 37.6 overnight. Blood culture no growth today; urine culture growing gram-negative bacillus. Fasting glucose level this morning 161. Patient is still complaining of same degree of weakness. She is coming of diaphoresis. She denies any fever or chills. She is complaining of GI upset with epigastric region cramping. She is coming of dysuria. Continue Rocephin while monitoring blood and urine culture results. Patient has been educated by machine programmer. Continue Lantus 20 units at bedtime and high scale correctional scale insulin AC adjust. Pending physical therapy evaluation and treatment. 07/10: Discharged home. Discharge diagnosis: UTI, hyperglycemia Time Spent with Patient Time attestation: Total time spent providing and/or coordinating discharge services: Time spent: Less than 30 minutes EXAM Constitutional Vitals: Temp Pulse Resp BP Pulse Ox O2 Del Method O2 Flow Rate 36.8 C 101 H 20 130/76 95 2 07/10/22 07:27 07/10/22 07:27 07/10/22 07:27 07/10/22 07:27 07/10/22 07:27 07/10/22 07:07/10/22 07:27 General appearance: cooperative and no acute distress Head Head exam: Present atraumatic and normocephalic Eye Eye exam: Present EOMI and PERRL ENT ENT exam: Present mucous membranes moist, normal exam and normal external ear exam Neck Neck exam: Present normal inspection; Absent lymphadenopathy, tenderness or thyromegaly Respiratory Respiratory exam: Absent accessory muscle use, respiratory distress or wheezes Cardiovascular Cardiovascular exam: Present normal rate and rhythm; Absent JVD GI/Abdominal GI/Abdominal exam: Present normal bowel sounds and soft; Absent organomegaly or tenderness Extremities Exam Extremities exam: Present full ROM, normal capillary refill and normal inspection; Absent tenderness Neurological Exam Neurological exam: Present alert, CN II-XII intact and oriented X3; Absent motor sensory deficit Psychiatric Psychiatric exam: Present normal affect and normal mood; Absent anxious or depressed Skin Skin exam: Present dry and intact Discharge Data Data Completed and Pending Labs on day of discharge: Labs from last 24 hours 07/10/22 07/10/22 05:51 05:51 WBC 10.4 RBC 4.27 Hgb 12.1 Hct 41.3 MCV 96.7 MCH 28.3 MCHC 29.3 L RDW 14.2 Plt Count 339 MPV 9.4 Immature Gran % (Auto) 1.6 H Neut % (Auto) 61.5 Lymph % (Auto) 24.6 Shannon % (Auto) 9.2 Eos % (Auto) 2.4 Baso % (Auto) 0.7 Lymph # (Auto) 2.57 Shannon # (Auto) 0.96 H Eos # (Auto) 0.25 Baso # (Auto) 0.07 Immature Gran # 0.17 H Absolute Neutrophils 6.41 Sodium 135 Potassium 4.3 Chloride 103 Carbon Dioxide 21 L Anion Gap 11.0 BUN 25 H Creatinine 1.1 GFR Calculation 54 Glucose 241 H Calcium 8.8 Phosphorus 3.8 Magnesium 1.9 Total Bilirubin 0.2 AST 19 ALT 28 Alkaline Phosphatase 108 Total Protein 6.7 Albumin 3.2 Globulin 3.5 Albumin/Globulin Ratio 0.9 L Preliminary micro results at discharge 07/08/22 14:55 Blood Culture - Preliminary Blood 07/08/22 14:44 Blood Culture - Preliminary Blood 07/08/22 16:15 Urine Culture - Preliminary Urine - Clean Void Mid-Stream Gram negative bacillus Discharge Plan Patient/Caregiver Discharge Instructions Activity: increase activity as tolerated Diet: Consistent Carbohydrate Prescriptions: New amoxicillin-pot clavulanate [Augmentin] 500-125 mg tablet 1 tab PO BID Qty: 10 0RF Continued Eliquis 5 mg tablet 5 mg PO BID Qty: 60 5RF (DME) syringe with needle, safety 3 mL 25 gauge x 1" syringe See Rx Instructions .Route Qty: 100 4RF Rx Instructions: Use with Regonol to inject IM q6hrs (DME) insulin syringe-needle U-100 1 mL 32 gauge x 5/16" syringe See Rx Instructions .Route Qty: 100 0RF Rx Instructions: Use with Lantus BID (DME) pen needle, diabetic [BD Ultra-Fine Concepcion Pen Needle] 32 gauge x 5/32" needle See Rx Instructions .Route Qty: 200 5RF Rx Instructions: Use up to 6 injections per day cyclobenzaprine 10 mg tablet 10 mg PO Q6H PRN (Reason: Muscle Pain) Qty: 120 5RF Hold Instructions: Doctor's Order pyridostigmine bromide 60 mg tablet 60 mg PO QID Qty: 120 5RF omeprazole 20 mg capsule,delayed release(DR/EC) 20 mg PO QDAY Qty: 30 1RF gabapentin 300 mg capsule 300 mg PO QID 30 Days Qty: 360 1RF duloxetine 30 mg capsule,delayed release(DR/EC) 30 mg PO BID Qty: 180 1RF insulin lispro [Humalog KwikPen Insulin] 100 unit/mL insulin pen 1 sliding scale dose subcut TID Qty: 45 1RF Rx Instructions: max per day 50 units calcitriol 0.25 mcg capsule See Rx Instructions .ROUTE .COMPLEX Qty: 15 6RF Dose Instruction: TAKE ONE CAPSULE BY MOUTH ON SATURDAY, SATURDAY AND SATURDAY FOR SUPPLEMENT Rx Instructions: TAKE ONE CAPSULE BY MOUTH ON SATURDAY, SATURDAY AND SATURDAY FOR SUPPLEMENT prednisone 20 mg tablet 20 mg PO [facility] Qty: 90 0RF (DME) Contour Next Test Strips Strip See Rx Instructions .ROUTE .COMPLEX Qty: 300 3RF Dose Instruction: FOR DIABETES; USE 4 TIMES DAILY Rx Instructions: FOR DIABETES; USE 4 TIMES DAILY levothyroxine 200 mcg tablet 200 mcg PO QDAY Qty: 90 1RF baclofen 10 mg tablet 5 mg PO TID 30 Days Qty: 45 2RF calcium 1,000 mg PO BID promethazine 50 mg Tablet 25 mg PO Q6HP PRN (Reason: Nausea And Vomiting) Glucagon (HCl) Emergency Kit 1 mg Recon Soln 1 mg IM Q15M PRN (Reason: Hypoglycemia) Rx Instructions: give only if unconscious and hypoglycemia confirmed magnesium 500 mg Tablet 1,000 mg PO QDAY Women's Multivitamin 18 mg iron-400 mcg-500 mg Tablet 1 tab PO DAILY insulin glargine [Lantus Solostar U-100 Insulin] 100 unit/mL (3 mL) insulin pen 13 ea subcut QPM ferrous sulfate 325 mg (65 mg iron) Tablet 325 mg PO HS Follow Up Plan Follow up with: Mookie Paiz MD [Primary Care Provider] - Patient Disposition: Home, Self-Care Prognosis: Fair Rehab Potential: Good I certify that the patient requires SNF services: No Overall status at discharge: patient is back to baseline Discharge Orders: Discharge Order (Routine); Ordered 07/10/22 Ordered By: Jt JIMENEZ VTE Deep Vein Thrombosis/Pulmonary Embolism Present on Admission: No
[2022-07-10] MEDS: 0.9 % SODIUM CHLORIDE 1,000 ML IV SCH (10:45)
== END 2022-07-10 11:55 | disposition home or self-care (01) | DRG 872 ==
LOC: ED 14:18 → MEDSUR 17:30
PROVIDERS: ADMIT Internal Medicine; ATTEND Internal Medicine

== ENCOUNTER 2022-11-12 21:16 | Inpatient (IN) ==
[2022-11-12] MEDS ORDERED: MAGNESIUM SULFATE 8.12 MEQ/2 ML VIAL IV STA (21:35)
[2022-11-12] MEDS ORDERED: ONDANSETRON 4 MG/2 ML VIAL IV ONE (21:37)
--- NOTE | 2022-11-12 21:39 | Emergency Department Note ---
HPI General Chief complaint: Weakness Stated complaint: weakness Time Seen by Provider: 11/12/22 21:28 Source: patient Mode of arrival: EMS Limitations: no limitations History of Present Illness HPI Narrative: Narrative: This 61-year-old myasthenia gravis patient presents complaining of overall muscle spasms weakness and palpitations recently. She denies any chest pain or shortness of breath. She endorses nausea, denies vomiting diarrhea, endorses sweats, denies fever, chills, denies urinary tract symptoms. Patient's other major diagnoses are colectomy with ileostomy secondary to SBO's , diabetes type 2 with previous episodes of HHS, sarcoid, hypothyroidism. Related Data Home Medications Medication Instructions Recorded Confirmed promethazine 50 mg tablet 25 mg PO Q6HP PRN Nausea And 01/27/21 09/21/22 Vomiting magnesium 500 mg tablet 1,000 mg PO QDAY 02/21/21 09/21/22 [id number]-FA-Ca carb-vit K 1 tab PO DAILY 05/22/21 09/21/22 18 mg iron-400 mcg-500 mg tablet (Women's Multivitamin) calcium 1,000 mg PO BID 02/01/22 09/21/22 ferrous sulfate 325 mg (65 mg 325 mg PO HS 07/08/22 09/21/22 iron) tablet famotidine 20 mg tablet 20 mg PO BID 07/20/22 09/21/22 pantoprazole 20 mg tablet,delayed 20 mg PO QDAY 07/20/22 09/21/22 release baclofen 10 mg tablet 10 mg PO TID 07/23/22 09/21/22 insulin glargine 100 unit/mL (3 23 unit subcut QPM 08/09/22 09/21/22 mL) subcutaneous pen (Lantus Solostar U-100 Insulin) Previous Rx's Medication Instructions Recorded apixaban 5 mg tablet (Eliquis) 5 mg PO BID #60 tabs 07/25/21 insulin syringe-needle U-100 1 mL #100 ea 12/05/21 32 gauge x 5/16" pen needle, diabetic 32 gauge x #200 ea 12/07/21 5/32" (BD Ultra-Fine Concepcion Pen Needle) pyridostigmine bromide 60 mg tablet 60 mg PO QID #120 tabs 02/26/22 duloxetine 30 mg capsule,delayed 30 mg PO BID #180 caps 04/12/22 release gabapentin 300 mg capsule 300 mg PO QID 30 days #360 caps 04/12/22 insulin lispro 100 unit/mL 1 sliding scale dose subcut TID 04/12/22 subcutaneous pen (Humalog KwikPen #45 Syringes (U-100) Insulin) calcitriol 0.25 mcg capsule See Rx Instructions .Route 05/15/22 .COMPLEX #15 caps blood sugar diagnostic (Contour #300 ea 06/14/22 Next Test Strips) levothyroxine 200 mcg tablet 200 mcg PO QDAY #90 tabs 06/19/22 doxycycline hyclate 100 mg capsule 100 mg PO BID #60 caps 08/09/22 prednisone 20 mg tablet 20 mg PO [facility] #90 tabs 09/11/22 dulaglutide 1.5 mg/0.5 mL 1.5 mg (0.5 mL) subcut QWEEK #2 mL 09/21/22 subcutaneous pen injector nitrofurantoin 100 mg PO Q12H 7 days #14 caps 09/25/22 monohydrate/macrocrystals 100 mg capsule cefdinir 300 mg capsule 300 mg PO BID #14 caps 10/12/22 fluconazole 150 mg tablet 150 mg PO Q3D 2 doses #2 tabs 10/12/22 Allergies Allergy/AdvReac Type Severity Reaction Status Date / Time Sulfa (Sulfonamide Allergy Severe Anaphylaxis Verified 11/12/22 21:17 Antibiotics) adhesive tape AdvReac Mild Blister Verified 11/12/22 21:17 metoclopramide [From Reglan] AdvReac Mild Anxiety Verified 11/12/22 21:17 steri strips AdvReac Mild Blister Uncoded 09/21/22 08:47 Review of Systems ROS ROS Narrative: Narrative: All systems ED: reviewed and negative except as stated. PFSH Narrative Patient History Narrative: Narrative: Medical/Surgical/Family History All Active Problems (Updated 11/13/22 @ 01:31 by Neftali Currie MD) Myasthenia gravis (Chronic) Sarcoidosis (Chronic) Hypothyroidism (Chronic) Hypertension (Chronic) Abnormal liver enzymes (Chronic) Chronic use of steroids (Chronic) Recurrent intestinal obstruction (Chronic) Obesity, Class II, BMI 35-39.9 (Chronic) Diabetes mellitus type 2, uncontrolled (Chronic) Chronic intestinal pseudo-obstruction (Chronic) Abdominal pain (Chronic) Chronic, continuous use of opioids (Chronic) LA (obstructive sleep apnea) (Chronic) Recurrent abdominal pain (Chronic) Sinus tachycardia (Chronic) Low blood magnesium level (Chronic) Hypocalcemia (Chronic) Elevated LFTs (Chronic) Electrolyte abnormality (Chronic) Small bowel obstruction (Chronic) Dehydration (Chronic) Primary chronic pseudo-obstruction of small intestine (Chronic) Nausea & vomiting (Chronic) Severe sepsis (Chronic) 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 (Chronic) Acute UTI (Chronic) Hypercalcemia (Chronic) COVID-19 (Chronic) Acute kidney injury (Chronic) Elevated serum creatinine (Chronic) Low back pain (Chronic) Partial small bowel obstruction (Chronic) Hypokalemia (Chronic) Diabetes mellitus (Chronic) Intractable abdominal pain (Chronic) Intractable vomiting with nausea (Chronic) Small bowel ischemia (Chronic) Pneumatosis intestinalis (Chronic) Right knee sprain (Chronic) Generalized weakness (Chronic) Hypercalcemia (Chronic) Acute hyperkalemia (Chronic) Leukocytosis (Chronic) Acidosis, lactic (Chronic) Fever of unknown origin (Chronic) Metabolic acidosis with normal anion gap and failure of bicarbonate regeneration (Chronic) Hyponatremia with decreased serum osmolality (Chronic) Ileostomy status (Chronic) Hypophosphatemia (Chronic) Bacteremia (Chronic) Hypoparathyroidism, unspecified (Chronic) SBO (small bowel obstruction) (Chronic) Anemia (Chronic) Acute hyperglycemia (Chronic) Acute dehydration (Chronic) Chronic iron deficiency anemia (Chronic) THANIA (acute kidney injury) (Chronic) Acute confusion (Chronic) Acute hyponatremia (Chronic) Acute delirium (Chronic) Myasthenia gravis (Chronic) Sepsis (Chronic) Morbid obesity (Chronic) UTI (urinary tract infection) (Acute) Hyperosmolar hyperglycemic state (HHS) (Acute) Hyperglycemia due to type 2 diabetes mellitus (Chronic) Clinical sepsis (Acute) Morbid obesity with BMI of 45.0-49.9, adult (Acute) UTI (urinary tract infection) (Acute) Acute hyperglycemia (Acute) Acute dehydration (Acute) Acute kidney injury (Acute) Dysuria (Acute) Urinary tract infection (Acute) Morbid obesity with BMI of 45.0-49.9, adult (Acute) Medicare annual wellness visit, initial (Acute) Recurrent UTI (Chronic) History of removal of Port-a-Cath (Chronic) Sepsis (Acute) UTI (urinary tract infection) (Acute) Hypersomnia (Acute) Medical History (Updated 11/13/22 @ 01:31 by Neftali Currie MD) Abdominal pain Abdominal wound dehiscence Abnormal liver enzymes Achalasia and cardiospasm Acute respiratory insufficiency Adverse reaction to drug Anaphylaxis Bowel obstruction Chronic intestinal pseudo-obstruction If no mechanical obstruction, patient says cholinesterase inhibitors usually works Linzess is another possibility Octreotide has helped in children Chronic use of steroids for myasthenia gravis; 10+ years, she started using steroids in 2002. Chronic, continuous use of opioids Need to minimize or stop as they are confusing the bowel issue Constipation due to neurogenic bowel Constipation due to pain medication therapy Dehydration Diabetes mellitus type 2, uncontrolled Encounter for care related to Port-a-Cath Fecal impaction Foot sprain Hypercalcemia Hypersomnia Hypertension Hypocalcemia Hyponatremia Hypothyroidism Ileus Infiltrate of lung present on imaging of chest Intractable vomiting Lactic acid acidosis Low blood magnesium level Medicare annual wellness visit, initial Morbid obesity Myasthenia gravis Prednisone dependent at 20 mg daily. In association with thyoma ~20 yrs [employer]ING[employer] MEDICAL [employer]IST[employer] Cholinesterase inhibitor IM and/or PO Nausea Nausea & vomiting Obesity, Class II, BMI 35-39.9 Chronic. Obstruction of descending colon LA (obstructive sleep apnea) Pancreatitis Parastomal hernia with obstruction, without gangrene Partial intestinal obstruction, unspecified as to cause Partial small bowel obstruction Pneumonia Polyglandular autoimmune syndrome I see no dental or nail dystrophy to suggest Type 1 polyglandular failure which is the only type associated with HYPOPARATHYROIDISM and no autoimmune adrenalitis. I have not read that MG is a feature and it's not clear that her thyroid disease is autoimmune in nature. So I'm skeptical of this Dx Primary chronic pseudo-obstruction of large intestine Pseudoobstruction of colon Pyelonephritis Recurrent abdominal pain Recurrent intestinal obstruction many recurrences; many surgical interventions Recurrent UTI Sarcoidosis Said to be present due to "granuloma's on hands" Check RADHA level On steroids forever for her MG Sepsis Sepsis associated hypotension Sepsis with acute hypoxic respiratory failure Sigmoid volvulus Sinus tachycardia Small bowel obstruction due to adhesions Small bowel obstruction due to postoperative adhesions Small bowel obstruction, partial Supraventricular tachycardia UTI (urinary tract infection) Volvulus of sigmoid colon Surgical History History of cholecystectomy (~2000) History of exploratory laparotomy 10/17/2017-with adhesiolysis; 12/01/2017-with adhesiolysis; 07/18/2018; -Exploratory laparotomy with small bowel adhesiolysis and incisional hernia repair with mesh graft; 11/30/2020-with total intraabdominal adhesiolysis History of meniscal tear (~2007) right knee History of removal of Port-a-Cath RETAINED portion of cath present on CXR 08/04 - multiple failed attempts at removal per pt report History of thymectomy (~2002) History of tonsillectomy S/P ileostomy Family History Father CAD (coronary artery disease) Mother CAD (coronary artery disease) Diabetes Grandfather CVA (cerebral vascular accident) HTN (hypertension) Paternal Grandmother CVA (cerebral vascular accident) Dementia Maternal HTN (hypertension) Paternal Bone cancer Maternal Cancer of back Paternal Aunt Diabetes Breast cancer Uncle Diabetes Brain cancer Social History Smoking Status: Never smoker Alcohol Intake Frequency: does not drink Substance Use: does not use Exam Narrative Narrative: Narrative: General: Alert moderate distress secondary to severe muscle spasms. Answers questions cogently. Skin: Diffuse erythema and fungal for station under fat folds. Level 1 decubitus a irritation over the sacrum.. Lungs: Clear to auscultation equal bilaterally without rales rhonchi or wheezes.. CV: Regular rate and rhythm without murmurs clicks rubs or gallops.. Abdomen: Morbidly obese. ileostomy nontender. General Limitations: no limitations Course Vital Signs Vital signs: Vital Signs Temperature 98.9 F 11/12/22 21:17 Pulse Rate 138 H 11/12/22 21:17 Respiratory Rate 18 11/12/22 21:17 Blood Pressure 124/112 11/12/22 21:17 Pulse Oximetry (%) 93 11/12/22 21:17 Oxygen Delivery Method Room Air 11/12/22 21:17 Temperature 98.9 F 11/12/22 21:17 Pulse Rate 117 H 11/13/22 01:16 Respiratory Rate 14 11/13/22 01:16 Blood Pressure 145/98 11/13/22 01:16 Pulse Oximetry (%) 96 11/13/22 01:16 Oxygen Delivery Method Room Air 11/12/22 22:53 [facility] MDM Narrative Medical decision making narrative: Narrative: Patient's spasms were ameliorated with magnesium IV 4 g and Robaxin 1000 mg IV. Patient has no fever, but does have tachycardia and tachypnea, and a 19,000 white count and lactate of 3.2. Her chest x-ray is clear without infiltrate and her D-dimer was normal at 0.38 with a PT of 25 for an INR of 2.2. Her urine seems to be the source of the infection and showed pyuria. Patient was given Zosyn 3.375 g IV and admitted for urosepsis. Sepsis Sepsis Identified: No Lab Data 11/12/22 21:30 Labs: Lab Results 11/12/22 11/12/22 11/12/22 Range/Units 21:30 21:30 21:30 WBC 19.2 H (4.5-11.0) K/mcL RBC 6.59 H (3.59-5.38) M/mcL Hgb 17.6 H (11.2-15.7) g/dL Hct 57.1 H (34.1-44.9) % POC Hct (36-48) MCV 86.6 (80.0-100.0) fL MCH 26.7 (26.0-34.0) pg MCHC 30.8 L (31.0-36.0) g/dL RDW 17.0 H (11.5-14.5) % Plt Count 448 H (140-440) K/mcL MPV 9.7 (8.8-12.5) fL Immature Gran % (Auto) 1.6 H (0.0-0.5) % Neut % (Auto) 83.7 H (38.0-78.0) % Lymph % (Auto) 10.2 L (15.5-49.0) % [place] % (Auto) 3.9 (1.0-12.0) % Eos % (Auto) 0.2 (0.0-7.0) % Baso % (Auto) 0.4 (0.0-2.0) % Lymph # (Auto) 1.95 (1.50-4.80) K/mcL [place] # (Auto) 0.74 (0.10-0.90) K/mcL Eos # (Auto) 0.03 (0.00-0.70) K/mcL Baso # (Auto) 0.08 (0.00-0.30) K/mcL Immature Gran # 0.31 H (0.00-0.05) K/mcl Absolute Neutrophils 16.10 H (1.80-8.00) K/mcL POC PT (11.9-14.5) POC INR (0.8-1.2) D-Dimer 0.38 (0.27-0.50) ug/mL POC VBG pH (7.32-7.42) POC VBG pCO2 at Temp (41-51) POC VBG pO2 (25-40) POC VBG HCO3 (24-28) POC VBG Total CO2 (25-29) POC Venous O2 Sat (40-70) POC VBG Base Excess (-2-2) VBG Lactic Acid (0.5-2) POC Sodium (133-145) POC Potassium (3.3-5.1) POC Chloride (96-108) POC Total CO2 (22-30) POC BUN (6-20) POC Creatinine (0.6-1.2) POC Glucose (70-105) POC WB Ioniz Calcium (1.16-1.32) Total Bilirubin 0.2 (0.1-1.0) mg/dL Direct Bilirubin < 0.2 (0-0.3) mg/dL AST 72 H (<32) U/L ALT 123 H (<40) U/L Alkaline Phosphatase 205 H (39-117) U/L NT-Pro-B Natriuret Pep 151.6 H (<125.0) pg/mL Total Protein 8.7 H (5.9-8.4) gm/dL Albumin 4.3 (3.2-5.2) gm/dL Globulin 4.4 H (2.2-3.7) gm/dL TSH (0.27-5.01) uIU/mL Urine Color Urine Appearance (Clear) Urine pH (5.0-9.0) Ur Specific [place] (1.000-1.035) Urine Protein (Negative) mg/dL Urine Glucose (UA) (Negative) mg/dL Urine Ketones (Negative) mg/dL Urine Occult Blood (Negative) donnie/mcL Urine Nitrate (Negative) Urine Bilirubin (Negative) mg/dL Urine Urobilinogen mg/dL Ur Leukocyte Esterase (Negative) /uL Urine RBC (0-3) /hpf Urine WBC (0-4) /hpf Ur Squamous Epith Cells (0-4) /hpf Urine Bacteria (0) /hpf Hyaline Casts (0-2) /lph Granular Casts (0-0) /lph Urine Mucus (None) /hpf Ur Culture Indicated? POC Troponin I (0.00-0.08) 11/12/22 11/12/22 11/12/22 Range/Units 21:35 21:35 21:36 WBC (4.5-11.0) K/mcL RBC (3.59-5.38) M/mcL Hgb (11.2-15.7) g/dL Hct (34.1-44.9) % POC Hct 60.0 H (36-48) MCV (80.0-100.0) fL MCH (26.0-34.0) pg MCHC (31.0-36.0) g/dL RDW (11.5-14.5) % Plt Count (140-440) K/mcL MPV (8.8-12.5) fL Immature Gran % (Auto) (0.0-0.5) % Neut % (Auto) (38.0-78.0) % Lymph % (Auto) (15.5-49.0) % [place] % (Auto) (1.0-12.0) % Eos % (Auto) (0.0-7.0) % Baso % (Auto) (0.0-2.0) % Lymph # (Auto) (1.50-4.80) K/mcL [place] # (Auto) (0.10-0.90) K/mcL Eos # (Auto) (0.00-0.70) K/mcL Baso # (Auto) (0.00-0.30) K/mcL Immature Gran # (0.00-0.05) K/mcl Absolute Neutrophils (1.80-8.00) K/mcL POC PT (11.9-14.5) POC INR (0.8-1.2) D-Dimer (0.27-0.50) ug/mL POC VBG pH 7.31 L (7.32-7.42) POC VBG pCO2 at Temp 35.4 L (41-51) POC VBG pO2 46 H (25-40) POC VBG HCO3 17.7 L (24-28) POC VBG Total CO2 19.0 L (25-29) POC Venous O2 Sat 78.0 H (40-70) POC VBG Base Excess -9.0 L (-2-2) VBG Lactic Acid 3.4 H (0.5-2) POC Sodium 133 (133-145) POC Potassium 5.4 H (3.3-5.1) POC Chloride 105 (96-108) POC Total CO2 19.0 L (22-30) POC BUN 52 H (6-20) POC Creatinine 1.4 H (0.6-1.2) POC Glucose 328 H (70-105) POC WB Ioniz Calcium 0.87 L (1.16-1.32) Total Bilirubin (0.1-1.0) mg/dL Direct Bilirubin (0-0.3) mg/dL AST (<32) U/L ALT (<40) U/L Alkaline Phosphatase (39-117) U/L NT-Pro-B Natriuret Pep (<125.0) pg/mL Total Protein (5.9-8.4) gm/dL Albumin (3.2-5.2) gm/dL Globulin (2.2-3.7) gm/dL TSH (0.27-5.01) uIU/mL Urine Color Urine Appearance (Clear) Urine pH (5.0-9.0) Ur Specific [place] (1.000-1.035) Urine Protein (Negative) mg/dL Urine Glucose (UA) (Negative) mg/dL Urine Ketones (Negative) mg/dL Urine Occult Blood (Negative) donnie/mcL Urine Nitrate (Negative) Urine Bilirubin (Negative) mg/dL Urine Urobilinogen mg/dL Ur Leukocyte Esterase (Negative) /uL Urine RBC (0-3) /hpf Urine WBC (0-4) /hpf Ur Squamous Epith Cells (0-4) /hpf Urine Bacteria (0) /hpf Hyaline Casts (0-2) /lph Granular Casts (0-0) /lph Urine Mucus (None) /hpf Ur Culture Indicated? POC Troponin I 0.02 (0.00-0.08) 11/12/22 11/12/22 11/12/22 Range/Units 21:55 21:56 23:46 WBC (4.5-11.0) K/mcL RBC (3.59-5.38) M/mcL Hgb (11.2-15.7) g/dL Hct (34.1-44.9) % POC Hct (36-48) MCV (80.0-100.0) fL MCH (26.0-34.0) pg MCHC (31.0-36.0) g/dL RDW (11.5-14.5) % Plt Count (140-440) K/mcL MPV (8.8-12.5) fL Immature Gran % (Auto) (0.0-0.5) % Neut % (Auto) (38.0-78.0) % Lymph % (Auto) (15.5-49.0) % [place] % (Auto) (1.0-12.0) % Eos % (Auto) (0.0-7.0) % Baso % (Auto) (0.0-2.0) % Lymph # (Auto) (1.50-4.80) K/mcL [place] # (Auto) (0.10-0.90) K/mcL Eos # (Auto) (0.00-0.70) K/mcL Baso # (Auto) (0.00-0.30) K/mcL Immature Gran # (0.00-0.05) K/mcl Absolute Neutrophils (1.80-8.00) K/mcL POC PT 25.4 H (11.9-14.5) POC INR 2.2 H (0.8-1.2) D-Dimer (0.27-0.50) ug/mL POC VBG pH (7.32-7.42) POC VBG pCO2 at Temp (41-51) POC VBG pO2 (25-40) POC VBG HCO3 (24-28) POC VBG Total CO2 (25-29) POC Venous O2 Sat (40-70) POC VBG Base Excess (-2-2) VBG Lactic Acid (0.5-2) POC Sodium (133-145) POC Potassium (3.3-5.1) POC Chloride (96-108) POC Total CO2 (22-30) POC BUN (6-20) POC Creatinine (0.6-1.2) POC Glucose (70-105) POC WB Ioniz Calcium (1.16-1.32) Total Bilirubin (0.1-1.0) mg/dL Direct Bilirubin (0-0.3) mg/dL AST (<32) U/L ALT (<40) U/L Alkaline Phosphatase (39-117) U/L NT-Pro-B Natriuret Pep (<125.0) pg/mL Total Protein (5.9-8.4) gm/dL Albumin (3.2-5.2) gm/dL Globulin (2.2-3.7) gm/dL TSH 4.11 (0.27-5.01) uIU/mL Urine Color Lt. yellow Urine Appearance Cloudy A (Clear) Urine pH 5.5 (5.0-9.0) Ur Specific [place] 1.020 (1.000-1.035) Urine Protein 30 A (Negative) mg/dL Urine Glucose (UA) Negative (Negative) mg/dL Urine Ketones Negative (Negative) mg/dL Urine Occult Blood Moderate A (Negative) donnie/mcL Urine Nitrate Negative (Negative) Urine Bilirubin Negative (Negative) mg/dL Urine Urobilinogen Normal mg/dL Ur Leukocyte Esterase Trace A (Negative) /uL Urine RBC 15 H (0-3) /hpf Urine WBC 104 H (0-4) /hpf Ur Squamous Epith Cells 1 (0-4) /hpf Urine Bacteria None (0) /hpf Hyaline Casts 4 H (0-2) /lph Granular Casts 1 H (0-0) /lph Urine Mucus Few A (None) /hpf Ur Culture Indicated? yes POC Troponin I (0.00-0.08) Discharge Plan Patient/Caregiver Discharge Instructions Pt seen by THEATRICAL VARIETY AGENT/PA only: No Clinical Impression: Sepsis, UTI (urinary tract infection) Patient Disposition: Xfer As Inpt ([facility]) Follow up with: Mookie Paiz MD [Primary Care Provider] - Prescriptions: No Action Eliquis 5 mg tablet 5 mg PO BID Qty: 60 5RF (DME) insulin syringe-needle U-100 1 mL 32 gauge x 5/16" syringe See Rx Instructions .Route Qty: 100 0RF Rx Instructions: Use with Lantus BID (DME) pen needle, diabetic [BD Ultra-Fine Concepcion Pen Needle] 32 gauge x 5/32" needle See Rx Instructions .Route Qty: 200 5RF Rx Instructions: Use up to 6 injections per day pyridostigmine bromide 60 mg tablet 60 mg PO QID Qty: 120 5RF gabapentin 300 mg capsule 300 mg PO QID 30 Days Qty: 360 1RF duloxetine 30 mg capsule,delayed release(DR/EC) 30 mg PO BID Qty: 180 1RF insulin lispro [Humalog KwikPen Insulin] 100 unit/mL insulin pen 1 sliding scale dose subcut TID Qty: 45 1RF Rx Instructions: max per day 50 units calcitriol 0.25 mcg capsule See Rx Instructions .ROUTE .COMPLEX Qty: 15 6RF Dose Instruction: TAKE ONE CAPSULE BY MOUTH ON SATURDAY, SATURDAY AND SATURDAY FOR SUPPLEMENT Rx Instructions: TAKE ONE CAPSULE BY MOUTH ON SATURDAY, SATURDAY AND SATURDAY FOR SUPPLEMENT (DME) Contour Next Test Strips Strip See Rx Instructions .ROUTE .COMPLEX Qty: 300 3RF Dose Instruction: FOR DIABETES; USE 4 TIMES DAILY Rx Instructions: FOR DIABETES; USE 4 TIMES DAILY levothyroxine 200 mcg tablet 200 mcg PO QDAY Qty: 90 1RF pantoprazole 20 mg tablet,delayed release (DR/EC) 20 mg PO QDAY famotidine 20 mg tablet 20 mg PO BID prednisone 20 mg tablet [facility] [place] 90 0RF nitrofurantoin monohyd/m-cryst 100 mg capsule 100 mg PO Q12H 7 Days Qty: 14 0RF Rx Instructions: must administer with a meal/food cefdinir 300 mg capsule 300 mg PO BID Qty: 14 0RF fluconazole 150 mg tablet 150 mg PO Q3D Qty: 2 0RF doxycycline hyclate 100 mg capsule 100 mg PO BID Qty: 60 2RF baclofen 10 mg tablet 10 mg PO TID Trulicity 1.5 mg/0.5 mL pen injector 1.5 mg subcut QWEEK Qty: 2 2RF calcium 1,000 mg PO BID promethazine 50 mg Tablet 25 mg PO Q6HP PRN (Reason: Nausea And Vomiting) magnesium 500 mg Tablet 1,000 mg PO QDAY Women's Multivitamin 18 mg iron-400 mcg-500 mg Tablet 1 tab PO DAILY ferrous sulfate 325 mg (65 mg iron) Tablet 325 mg PO HS insulin glargine [Lantus Solostar U-100 Insulin] 100 unit/mL (3 mL) insulin pen 23 unit subcut QPM
[2022-11-12 21:40] LABS: POC Calcium, Ionized 0.87 (1.16-1.32); POC Creatinine 1.4 (0.6-1.2); POC Potassium 5.4 (3.3-5.1)
[2022-11-12] MEDS ORDERED: METHOCARBAMOL 1,000 MG/10 ML VIAL IV ONE (21:45)
[2022-11-12] MEDS ORDERED: 0.9 % SODIUM CHLORIDE 1,000 ML IV ONE (21:45)
[2022-11-12] MEDS ORDERED: MAGNESIUM SULFATE 4 GM/100 ML BAG IV ONE (21:49)
[2022-11-12 21:59] LABS: POC INR 2.2 (0.8-1.2); POC Pro Time 25.4 (11.9-14.5)
[2022-11-12 22:02] LABS: Basophils # (Auto) 0.08 K/mcL (0.00-0.30); Basophils % (Auto) 0.4 % (0.0-2.0); Eosinophils # (Auto) 0.03 K/mcL (0.00-0.70); Eosinophils % (Auto) 0.2 % (0.0-7.0); Hematocrit 57.1 % (34.1-44.9); Hemoglobin 17.6 g/dL (11.2-15.7); Lymphocytes # (Auto) 1.95 K/mcL (1.50-4.80); Lymphocytes % (Auto) 10.2 % (15.5-49.0); Mean Cell Volume 86.6 fL (80.0-100.0); Mean Corpuscular HGB Conc 30.8 g/dL (31.0-36.0); Mean Platelet Volume 9.7 fL (8.8-12.5); Monocytes # (Auto) 0.74 K/mcL (0.10-0.90); Monocytes % (Auto) 3.9 % (1.0-12.0); Neutrophils % (Auto) 83.7 % (38.0-78.0); Platelet Count 448 K/mcL (140-440); RBC 6.59 M/mcL (3.59-5.38); WBC 19.2 K/mcL (4.5-11.0)
[2022-11-12 22:25] LABS: proBNP 151.6 pg/mL (<125.0)
[2022-11-12 22:32] LABS: Thyroid Stimulating Hormone 4.11 uIU/mL (0.27-5.01)
[2022-11-12 23:01] LABS: ALT/SGPT 123 U/L (<40); AST/SGOT 72 U/L (<32); Albumin 4.3 gm/dL (3.2-5.2); Alkaline Phosphatase 205 U/L (39-117); Bilirubin,Direct < 0.2 mg/dL (0-0.3); Bilirubin,Total 0.2 mg/dL (0.1-1.0); Globulin 4.4 gm/dL (2.2-3.7)
[2022-11-13 00:57] LABS: Appearance,Urine CLOUDY (Clear); Bilirubin,Urine NEGATIVE (Negative); Color,Urine LT. YELLOW; Culture Indicated,Urine yes; Glucose,Urine (UA) NEGATIVE (Negative); Ketones,Urine NEGATIVE (Negative); Leukocyte Esterase,Urine TRACE /uL (Negative); Mucus,Urine FEW /hpf; Nitrate,Urine NEGATIVE (Negative); PH,Urine 5.5 (5.0-9.0); Protein,Urine 30 mg/dL (Negative); Urine Blood MODERATE ery/mcL (Negative); Urine Granular Cast 1 /lph (0-0); Urine Hyaline Cast 4 /lph (0-2); Urine RBC 15 /hpf (0-3); Urine Squamous Epithelial Cell 1 /hpf (0-4); Urine WBC 104 /hpf (0-4); Urobilinogen,Urine Normal
[2022-11-13] MEDS ORDERED: PIPERACILLIN SODIUM/TAZOBACTAM 3.375 GM in DEXTROSE 5% IN WATER 50 ML IV ONE (00:59)
[2022-11-13] MEDS: METHOCARBAMOL 1,000 MG/10 ML VIAL IV PRN ×3 (03:20→17:07)
[2022-11-13] MEDS ORDERED: PIPERACILLIN SODIUM/TAZOBACTAM 3.375 GM in DEXTROSE 5% IN WATER 50 ML IV SCH ×2 (05:00→07:00)
--- NOTE | 2022-11-13 05:30 | XRay Report ---
INDICATION: chest tightness TECHNIQUE: AP portable semiupright chest x-ray COMPARISON: Previous chest x-rays dated 08/01/2022, 07/13/2022, 05/29/2021. Chest CT scan dated 12/27/2020. FINDINGS: Lungs:Lungs are negative. No focal pulmonary parenchymal infiltrate or mass. No acute abnormality Heart, vascular:No significant cardiomegaly. Pulmonary vascularity is normal. No pulmonary edema or pulmonary congestion Mediastinum, david:Left-sided Port-A-Cath was present on 12/27/2020. Catheter port has been removed. There is a fragment of catheter remaining which extends from the left brachiocephalic - subclavian vein junction to the right atrium. This has not change in position without evidence for significant interval migration. Pleura:No pleural fluid. No pleural-based mass or calcification. Elevation of the right hemidiaphragm is stable Skeletal:Previous median sternotomy. No acute abnormality IMPRESSION: 1. No acute abnormality. No interval change since 08/01/2022 2. Catheter fragment remains in unchanged position within the brachiocephalic vein, superior vena cava, right atrium Interpreted and Authenticated by: All Cormier 11/13/22
[2022-11-13] MEDS ORDERED: ONDANSETRON 4 MG/2 ML VIAL IV PRN (06:30)
--- NOTE | 2022-11-13 08:58 | EKG ---
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 Measurements Intervals [place] Rate: 130 P: 56 PA: 119 QRS: 27 QRSD: 73 T: 51 QT: 289 QTc: 426 Interpretive Statements Sinus tachycardia Consider right atrial enlargement Motion artifact in limb leads Electronically Signed On 11-13-2022 8:58:36 PST by All Juarez M.D. /store/[email or web address]/[id number]
[2022-11-13] MEDS: NYSTATIN POWDER BOTTLE 15GM TOPICAL SCH ×2 (09:05→21:11)
[2022-11-13] MEDS ORDERED: cefTRIAXone 1 GM in DEXTROSE 5% IN WATER 50 ML IV SCH (10:17)
[2022-11-13] MEDS ORDERED: SENNOSIDES 1 TABLET PO PRN (10:17)
[2022-11-13] MEDS ORDERED: DEXTROSE 50% 50 ML VIAL IV PRN (10:17)
[2022-11-13] MEDS ORDERED: IPRATROPIUM/ALBUTEROL 3 ML AMPUL.NEB NEB PRN (10:17)
[2022-11-13] MEDS ORDERED: LACTULOSE 20 GM/30 ML ORAL.SOL PO PRN (10:17)
[2022-11-13] MEDS ORDERED: DEXTROSE 31 GM ORAL.SUSP PO PRN (10:17)
[2022-11-13] MEDS ORDERED: METOPROLOL TARTRATE 5 MG/5 ML VIAL IV PRN (10:18)
--- NOTE | 2022-11-13 10:18 | Internal Med History&Physical ---
HPI History of Present Illness Patient information: Note initiated : 11/13/22 at 10:16 am Service Date, if different from initiated Date: [] Patient: Dayanna Guo a 61 y/o F admitted on 11/13/22 for weakness. Chief Complaint: [leg cramps, nausea, vomiting, diaphoresis, dysuria] Chief complaint: leg cramps, nausea, vomiting, diaphoresis, dysuria History of present illness: Ms. Guo is a 61 year old F history of myasthenia gravis, hypothyroidism, type 2 diabetes mellitus, status post urostomy placement, presenting with 3-day history of leg cramps, nausea, vomiting, diaphoresis, dysuria. Patient has a history of frequent urinary tract infections. Vital signs at ED presentations significant for tachycardia heart rate in the 1 teens beats per minutes. Labs significant for leukocytosis with WBC 19.2. Serum lactic acid 3.4. Potassium level 5.4. BUN/creatinine 52, 1.4, respectively. UA suggesting the presence of urinary tract infection. Admission request was called for urinary tract infections with clinical sepsis. Constitutional Constitutional: Present night sweats; Absent chills, excessive sweating, fatigue, fever(s) or weakness EENT Eyes: Absent blurry vision, change in vision, loss of vision or other visual disturbances Ears: Absent decreased hearing or tinnitus Nose, mouth and throat: Absent abnormal hearing, dry mouth, headache(s), nasal congestion or sore throat Cardiovascular Cardiovascular: Absent chest pain, chest pain at rest, edema, irregular heart rhythm or palpatations Respiratory Respiratory: Absent cough, dyspnea or wheezing Gastrointestinal Gastrointestinal: Present nausea and vomiting; Absent abdominal pain, constipation or diarrhea Genitourinary Genitourinary: Present dysuria Musculoskeletal Musculoskeletal: Present muscle cramps; Absent back pain, deformity, limited range of motion, muscle weakness or numbness Integumentary Integumentary: Absent lesions, rash or wounds Neurological Neurological: Absent focal weakness, headache(s) or numbness Psychiatric Psychiatric: Absent anxiety, depression or hallucinations PFSH PFSH All Active Problems (Updated 11/13/22 @ 10:23 by Jt Spring MD) Stage 1 acute kidney injury (Acute) Hyperkalemia (Acute) Myasthenia gravis (Chronic) Sarcoidosis (Chronic) Hypothyroidism (Chronic) Hypertension (Chronic) Abnormal liver enzymes (Chronic) Chronic use of steroids (Chronic) Recurrent intestinal obstruction (Chronic) Obesity, Class II, BMI 35-39.9 (Chronic) Diabetes mellitus type 2, uncontrolled (Chronic) Chronic intestinal pseudo-obstruction (Chronic) Abdominal pain (Chronic) Chronic, continuous use of opioids (Chronic) LA (obstructive sleep apnea) (Chronic) Recurrent abdominal pain (Chronic) Sinus tachycardia (Chronic) Low blood magnesium level (Chronic) Hypocalcemia (Chronic) Elevated LFTs (Chronic) Electrolyte abnormality (Chronic) Small bowel obstruction (Chronic) Dehydration (Chronic) Primary chronic pseudo-obstruction of small intestine (Chronic) Nausea & vomiting (Chronic) Severe sepsis (Chronic) 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 (Chronic) Acute UTI (Chronic) Hypercalcemia (Chronic) COVID-19 (Chronic) Acute kidney injury (Chronic) Elevated serum creatinine (Chronic) Low back pain (Chronic) Partial small bowel obstruction (Chronic) Hypokalemia (Chronic) Diabetes mellitus (Chronic) Intractable abdominal pain (Chronic) Intractable vomiting with nausea (Chronic) Small bowel ischemia (Chronic) Pneumatosis intestinalis (Chronic) Right knee sprain (Chronic) Generalized weakness (Chronic) Hypercalcemia (Chronic) Acute hyperkalemia (Chronic) Leukocytosis (Chronic) Acidosis, lactic (Chronic) Fever of unknown origin (Chronic) Metabolic acidosis with normal anion gap and failure of bicarbonate regeneration (Chronic) Hyponatremia with decreased serum osmolality (Chronic) Ileostomy status (Chronic) Hypophosphatemia (Chronic) Bacteremia (Chronic) Hypoparathyroidism, unspecified (Chronic) SBO (small bowel obstruction) (Chronic) Anemia (Chronic) Acute hyperglycemia (Chronic) Acute dehydration (Chronic) Chronic iron deficiency anemia (Chronic) THANIA (acute kidney injury) (Chronic) Acute confusion (Chronic) Acute hyponatremia (Chronic) Acute delirium (Chronic) Myasthenia gravis (Chronic) Sepsis (Chronic) Morbid obesity (Chronic) UTI (urinary tract infection) (Acute) Hyperosmolar hyperglycemic state (HHS) (Acute) Hyperglycemia due to type 2 diabetes mellitus (Chronic) Clinical sepsis (Acute) Morbid obesity with BMI of 45.0-49.9, adult (Acute) UTI (urinary tract infection) (Acute) Acute hyperglycemia (Acute) Acute dehydration (Acute) Acute kidney injury (Acute) Dysuria (Acute) Urinary tract infection (Acute) Morbid obesity with BMI of 45.0-49.9, adult (Acute) Medicare annual wellness visit, initial (Acute) Recurrent UTI (Chronic) History of removal of Port-a-Cath (Chronic) Sepsis (Acute) UTI (urinary tract infection) (Acute) Hypersomnia (Acute) Medical History (Updated 11/13/22 @ 10:23 by tJ Spring MD) Abdominal pain Abdominal wound dehiscence Abnormal liver enzymes Achalasia and cardiospasm Acute respiratory insufficiency Adverse reaction to drug Anaphylaxis Bowel obstruction Chronic intestinal pseudo-obstruction If no mechanical obstruction, patient says cholinesterase inhibitors usually works Linzess is another possibility Octreotide has helped in children Chronic use of steroids for myasthenia gravis; 10+ years, she started using steroids in 2002. Chronic, continuous use of opioids Need to minimize or stop as they are confusing the bowel issue Constipation due to neurogenic bowel Constipation due to pain medication therapy Dehydration Diabetes mellitus type 2, uncontrolled Encounter for care related to Port-a-Cath Fecal impaction Foot sprain Hypercalcemia Hypersomnia Hypertension Hypocalcemia Hyponatremia Hypothyroidism Ileus Infiltrate of lung present on imaging of chest Intractable vomiting Lactic acid acidosis Low blood magnesium level Medicare annual wellness visit, initial Morbid obesity Myasthenia gravis Prednisone dependent at 20 mg daily. In association with thyoma ~20 yrs [employer] Cholinesterase inhibitor IM and/or PO Nausea Nausea & vomiting Obesity, Class II, BMI 35-39.9 Chronic. Obstruction of descending colon LA (obstructive sleep apnea) Pancreatitis Parastomal hernia with obstruction, without gangrene Partial intestinal obstruction, unspecified as to cause Partial small bowel obstruction Pneumonia Polyglandular autoimmune syndrome I see no dental or nail dystrophy to suggest Type 1 polyglandular failure which is the only type associated with HYPOPARATHYROIDISM and no autoimmune adrenalitis. I have not read that MG is a feature and it's not clear that her thyroid disease is autoimmune in nature. So I'm skeptical of this Dx Primary chronic pseudo-obstruction of large intestine Pseudoobstruction of colon Pyelonephritis Recurrent abdominal pain Recurrent intestinal obstruction many recurrences; many surgical interventions Recurrent UTI Sarcoidosis Said to be present due to "granuloma's on hands" Check RADHA level On steroids forever for her MG Sepsis Sepsis associated hypotension Sepsis with acute hypoxic respiratory failure Sigmoid volvulus Sinus tachycardia Small bowel obstruction due to adhesions Small bowel obstruction due to postoperative adhesions Small bowel obstruction, partial Supraventricular tachycardia UTI (urinary tract infection) Volvulus of sigmoid colon Surgical History History of cholecystectomy (~2000) History of exploratory laparotomy 10/17/2017-with adhesiolysis; 12/01/2017-with adhesiolysis; 07/18/2018; 08/10/2018-Exploratory laparotomy with small bowel adhesiolysis and incisional hernia repair with mesh graft; 11/30/2020-with total intraabdominal adhesiolysis History of meniscal tear (~2007) right knee History of removal of Port-a-Cath RETAINED portion of cath present on CXR 08/04 - multiple failed attempts at removal per pt report History of thymectomy (~2002) History of tonsillectomy S/P ileostomy Family History Father CAD (coronary artery disease) Mother CAD (coronary artery disease) Diabetes Grandfather CVA (cerebral vascular accident) HTN (hypertension) Paternal Grandmother CVA (cerebral vascular accident) Dementia Maternal HTN (hypertension) Paternal Bone cancer Maternal Cancer of back Paternal Aunt Diabetes Breast cancer Uncle Diabetes Brain cancer Social History marital status: smoking status: Never smoker alcohol intake frequency: does not drink substance use type: does not use MEDS/ALLERGIES Home Medications and Allergies Home Medications Medication Instructions Recorded Confirmed Type magnesium 500 mg tablet 1,000 mg PO QDAY 02/21/21 11/13/22 History apixaban 5 mg tablet (Eliquis) 5 mg PO BID #60 tabs 07/25/21 11/13/22 Rx insulin syringe-needle U-100 1 mL #100 ea 12/05/21 11/13/22 Rx 32 gauge x 5/16" pen needle, diabetic 32 gauge x #200 ea 12/07/21 11/13/22 Rx 5/32" (BD Ultra-Fine Concepcion Pen Needle) calcium 1,000 mg PO BID 02/01/22 11/13/22 History pyridostigmine bromide 60 mg tablet 60 mg PO QID #120 tabs 02/26/22 11/13/22 Rx duloxetine 30 mg capsule,delayed 30 mg PO BID #180 caps 04/12/22 11/13/22 Rx release gabapentin 300 mg capsule 300 mg PO QID 30 days #360 caps 04/12/22 11/13/22 Rx insulin lispro 100 unit/mL 1 sliding scale dose subcut TID 04/12/22 11/13/22 Rx subcutaneous pen (Humalog KwikPen #45 Syringes (U-100) Insulin) calcitriol 0.25 mcg capsule See Rx Instructions .Route 05/15/22 11/13/22 Rx .COMPLEX #15 caps blood sugar diagnostic (Contour #300 ea 06/14/22 11/13/22 Rx Next Test Strips) levothyroxine 200 mcg tablet 200 mcg PO QDAY #90 tabs 06/19/22 11/13/22 Rx famotidine 20 mg tablet 20 mg PO BID 07/20/22 11/13/22 History pantoprazole 20 mg tablet,delayed 20 mg PO QDAY 07/20/22 11/13/22 History release baclofen 10 mg tablet 10 mg PO TID 07/23/22 11/13/22 History doxycycline hyclate 100 mg capsule 100 mg PO BID #60 caps 08/09/22 11/13/22 Rx insulin glargine 100 unit/mL (3 23 unit subcut QPM 08/09/22 11/13/22 History mL) subcutaneous pen (Lantus Solostar U-100 Insulin) prednisone 20 mg tablet 20 [facility] [place] [facility] tabs 09/11/22 11/13/22 Rx dulaglutide 1.5 mg/0.5 mL 1.5 mg (0.5 mL) subcut QWEEK #2 mL 09/21/22 11/13/22 Rx subcutaneous pen injector nitrofurantoin 100 mg PO Q12H 7 days #14 caps 09/25/22 11/13/22 Rx monohydrate/macrocrystals 100 mg capsule cefdinir 300 mg capsule 300 mg PO BID #14 caps 10/12/22 11/13/22 Rx Allergies Allergy/AdvReac Type Severity Reaction Status Date / Time Sulfa (Sulfonamide Allergy Severe Anaphylaxis Verified 11/12/22 21:17 Antibiotics) adhesive tape AdvReac Mild Blister Verified 11/12/22 21:17 metoclopramide [From Reglan] AdvReac Mild Anxiety Verified 11/12/22 21:17 steri strips AdvReac Mild Blister Uncoded 09/21/22 08:47 EXAM Constitutional Vitals: Temp Pulse Resp BP Pulse Ox O2 Del Method 36.2 C 115 H 19 100/77 97 Room Air 11/13/22 08:05 11/13/22 08:05 11/13/22 08:05 11/13/22 08:05 11/13/22 08:05 11/13/22 08:05 General appearance: cooperative and no acute distress Head Head exam: Present atraumatic and normocephalic Eye Eye exam: Present EOMI and PERRL ENT ENT exam: Present mucous membranes moist, normal exam and normal external ear exam Neck Neck exam: Present normal inspection; Absent lymphadenopathy, tenderness or thyromegaly Respiratory Respiratory exam: Absent accessory muscle use, respiratory distress or wheezes Cardiovascular Cardiovascular exam: Present normal rate and rhythm; Absent JVD GI/Abdominal GI/Abdominal exam: Present normal bowel sounds and soft; Absent organomegaly or tenderness Additional comments: Ileostomy Extremities Exam Extremities exam: Present full ROM, normal capillary refill and normal inspection; Absent tenderness Neurological Exam Neurological exam: Present alert, CN II-XII intact and oriented X3; Absent motor sensory deficit Psychiatric Psychiatric exam: Present normal affect and normal mood; Absent anxious or depressed Skin Skin exam: Present dry, erythema and intact Additional comments: erythematic rash at abdominal skin folds DATA Data Completed and Pending Labs: Labs from last 24 hours 11/12/22 11/12/22 11/12/22 23:46 21:56 21:55 WBC RBC Hgb Hct POC Hct MCV MCH MCHC RDW Plt Count MPV Immature Gran % (Auto) Neut % (Auto) Lymph % (Auto) [place] % (Auto) Eos % (Auto) Baso % (Auto) Lymph # (Auto) [place] # (Auto) Eos # (Auto) Baso # (Auto) Immature Gran # Absolute Neutrophils POC PT 25.4 H POC INR 2.2 H D-Dimer POC VBG pH POC VBG pCO2 at Temp POC VBG pO2 POC VBG HCO3 POC VBG Total CO2 POC Venous O2 Sat POC VBG Base Excess VBG Lactic Acid POC Sodium POC Potassium POC Chloride POC Total CO2 POC BUN POC Creatinine POC Glucose POC WB Ioniz Calcium Total Bilirubin Direct Bilirubin AST ALT Alkaline Phosphatase NT-Pro-B Natriuret Pep Total Protein Albumin Globulin TSH 4.11 Urine Color Lt. yellow Urine Appearance Cloudy A Urine pH 5.5 Ur Specific [place] 1.020 Urine Protein 30 A Urine Glucose (UA) Negative Urine Ketones Negative Urine Occult Blood Moderate A Urine Nitrate Negative Urine Bilirubin Negative Urine Urobilinogen Normal Ur Leukocyte Esterase Trace A Urine RBC 15 H Urine WBC 104 H Ur Squamous Epith Cells 1 Urine Bacteria None Hyaline Casts 4 H Granular Casts 1 H Urine Mucus Few A Ur Culture Indicated? yes POC Troponin I 11/12/22 11/12/22 11/12/22 21:36 21:35 21:35 WBC RBC Hgb Hct POC Hct 60.0 H MCV MCH MCHC RDW Plt Count MPV Immature Gran % (Auto) Neut % (Auto) Lymph % (Auto) [place] % (Auto) Eos % (Auto) Baso % (Auto) Lymph # (Auto) [place] # (Auto) Eos # (Auto) Baso # (Auto) Immature Gran # Absolute Neutrophils POC PT POC INR D-Dimer POC VBG pH 7.31 L POC VBG pCO2 at Temp 35.4 L POC VBG pO2 46 H POC VBG HCO3 17.7 L POC VBG Total CO2 19.0 L POC Venous O2 Sat 78.0 H POC VBG Base Excess -9.0 L VBG Lactic Acid 3.4 H POC Sodium 133 POC Potassium 5.4 H POC Chloride 105 POC Total CO2 19.0 L POC BUN 52 H POC Creatinine 1.4 H POC Glucose 328 H POC WB Ioniz Calcium 0.87 L Total Bilirubin Direct Bilirubin AST ALT Alkaline Phosphatase NT-Pro-B Natriuret Pep Total Protein Albumin Globulin TSH Urine Color Urine Appearance Urine pH Ur Specific [place] Urine Protein Urine Glucose (UA) Urine Ketones Urine Occult Blood Urine Nitrate Urine Bilirubin Urine Urobilinogen Ur Leukocyte Esterase Urine RBC Urine WBC Ur Squamous Epith Cells Urine Bacteria Hyaline Casts Granular Casts Urine Mucus Ur Culture Indicated? POC Troponin I 0.02 11/12/22 11/12/22 11/12/22 21:30 21:30 21:30 WBC 19.2 H RBC 6.59 H Hgb 17.6 H Hct 57.1 H POC Hct MCV 86.6 MCH 26.7 MCHC 30.8 L RDW 17.0 H Plt Count 448 H MPV 9.7 Immature Gran % (Auto) 1.6 H Neut % (Auto) 83.7 H Lymph % (Auto) 10.2 L [place] % (Auto) 3.9 Eos % (Auto) 0.2 Baso % (Auto) 0.4 Lymph # (Auto) 1.95 [place] # (Auto) 0.74 Eos # (Auto) 0.03 Baso # (Auto) 0.08 Immature Gran # 0.31 H Absolute Neutrophils 16.10 H POC PT POC INR D-Dimer 0.38 POC VBG pH POC VBG pCO2 at Temp POC VBG pO2 POC VBG HCO3 POC VBG Total CO2 POC Venous O2 Sat POC VBG Base Excess VBG Lactic Acid POC Sodium POC Potassium POC Chloride POC Total CO2 POC BUN POC Creatinine POC Glucose POC WB Ioniz Calcium Total Bilirubin 0.2 Direct Bilirubin < 0.2 AST 72 H ALT 123 H Alkaline Phosphatase 205 H NT-Pro-B Natriuret Pep 151.6 H Total Protein 8.7 H Albumin 4.3 Globulin 4.4 H TSH Urine Color Urine Appearance Urine pH Ur Specific [place] Urine Protein Urine Glucose (UA) Urine Ketones Urine Occult Blood Urine Nitrate Urine Bilirubin Urine Urobilinogen Ur Leukocyte Esterase Urine RBC Urine WBC Ur Squamous Epith Cells Urine Bacteria Hyaline Casts Granular Casts Urine Mucus Ur Culture Indicated? POC Troponin I A/P Assessment and plan (1) Myasthenia gravis: Status: Chronic Comment: Prednisone dependent at 20 mg daily. In association with thyoma ~20 yrs [employer] Cholinesterase inhibitor IM and/or PO (2) Hypothyroidism: Status: Chronic Qualifiers: Hypothyroidism type: congenital with diffuse goiter Qualified Code(s): E03.0 - Congenital hypothyroidism with diffuse goiter (3) Diabetes mellitus type 2, uncontrolled: Status: Chronic Qualifiers: Coma presence: without coma (4) Hyperkalemia: Status: Acute (5) Severe sepsis: Status: Chronic Comment: Dayanna is a 60-year-old morbidly obese diabetic with prednisone-dependent myasthenia gravis. She is currently hospital day 4 admitted for sepsis with acute kidney injury and leukocytosis. Leukocytosis has improved. Sepsis parameters have improved. She is currently day 4 of IV vancomycin and cefepime. She has bacteremia with gram-positive cocci yet to be determined. I am not convinced that she has a Serratia UTI. She was asymptomatic with a UA only with 4 white blood cells. I would recommend discontinuing cefepime. I do recommend continuing vancomycin until ID and sensitivity of the gram-positive cocci. Source of gram-positive cocci could be from bowel, heart valve, or port. The port appears normal. Typically, I would recommend 2 weeks of IV therapy once blood cultures are negative. I would recommend echocardiogram as well as surveillance blood cultures. She denies abdominal pain symptoms. No current urinary symptoms. I do believe that this is a true bacteremia and not a contaminant. Await further identification of organism, however. (6) Stage 1 acute kidney injury: Status: Acute (7) UTI (urinary tract infection): Status: Acute Narrative A/P Narrative: Assessment and Plans: 1. UTI with severe sepsis: Inpatient PCU Serial lactic acid Procalcitonin Blood culture Urine culture cbc w/ auto diff in the morning to trend WBC s/p IV fluid bolus given in the ER, to be followed by NS@100cc/hr Rocephin Physical therapy evaluation and treatment 2. T2DM: HgA1c Hold oral hypoglycemics Insulin Lantus 23 unit HS Insulin Lispro SSI AC HS Accu Check AC HS Hypoglycemia protocol Diabetic diet 3. Myasthenia Gravis: Prednisone Pyridostigmine 4. Stage 1 acute kidney injury: Avoid nephrotoxic agents s/p IV fluid bolus given in the ER, to be followed by NS@100cc/hr CMP in the morning to trend kidney functions 5. Hyperkalemia: s/p IV fluid bolus given in the ER, to be followed by NS@100cc/hr CMP in the morning to trend serum potassium level 6. Hypothyroidism: Continue thyroid replacement therapy GI ppx: PPI DVT ppx: Eliquis Code status: Full Prognosis: guarded Disposition: inpatient PCU; PT Time Spent With Patient Time: Total time spent is greater than 50% in coordination of care (as documented) at patient's floor/unit and/or counseling patient: Initial: Total time with patient: 55 - 74 minutes
[2022-11-13] MEDS: 0.9 % SODIUM CHLORIDE 1,000 ML IV SCH ×2 (10:28→20:50)
[2022-11-13] MEDS: cefTRIAXone 1 GM VIAL IV SCH (10:50)
[2022-11-13] MEDS: CALCITRIOL 0.25 MCG CAPSULE PO SCH (10:50)
[2022-11-13] MEDS: GABAPENTIN 300 MG CAPSULE PO SCH ×3 (11:08→21:10)
[2022-11-13] MEDS: BACLOFEN 10 MG TABLET PO SCH ×3 (11:09→21:10)
[2022-11-13] MEDS: INSULIN LISPRO 1 UNIT/0.01 ML UNIT SQ SCH ×3 (11:28→21:09)
[2022-11-13 11:31] LABS: Basophils # (Auto) 0.14 K/mcL (0.00-0.30); Basophils % (Auto) 0.6 % (0.0-2.0); Eosinophils # (Auto) 0.15 K/mcL (0.00-0.70); Eosinophils % (Auto) 0.7 % (0.0-7.0); Hematocrit 52.8 % (34.1-44.9); Hemoglobin 16.1 g/dL (11.2-15.7); Lymphocytes # (Auto) 2.89 K/mcL (1.50-4.80); Lymphocytes % (Auto) 13.3 % (15.5-49.0); Mean Cell Volume 88.9 fL (80.0-100.0); Mean Corpuscular HGB Conc 30.5 g/dL (31.0-36.0); Mean Platelet Volume 9.7 fL (8.8-12.5); Monocytes # (Auto) 2.13 K/mcL (0.10-0.90); Monocytes % (Auto) 9.8 % (1.0-12.0); Neutrophils % (Auto) 73.7 % (38.0-78.0); Platelet Count 403 K/mcL (140-440); RBC 5.94 M/mcL (3.59-5.38); WBC 21.7 K/mcL (4.5-11.0)
[2022-11-13 11:46] LABS: ALT/SGPT 210 U/L (<40); AST/SGOT 186 U/L (<32); Albumin 3.3 gm/dL (3.2-5.2); Albumin/Globulin Ratio 0.8 (1.0-2.3); Alkaline Phosphatase 203 U/L (39-117); Bilirubin,Total 0.2 mg/dL (0.1-1.0); Blood Urea Nitrogen 50 mg/dL (6-20); Calcium 6.8 mg/dL (8.6-10.4); Carbon Dioxide 12 mmol/L (22-30); Chloride 95 mmol/L (96-108); Globulin 4.2 gm/dL (2.2-3.7); Glomerular Filtration Rate 37; Glucose 214 mg/dL (70-105)
[2022-11-13] MEDS: 0.9 % SODIUM CHLORIDE 10 ML SYRINGE IV SCH ×2 (14:06→21:11)
[2022-11-13] MEDS: PYRIDOSTIGMINE 60 MG TABLET PO SCH ×3 (14:08→21:24)
[2022-11-13] MEDS: ACETAMINOPHEN 325 MG TABLET PO PRN ×2 (17:07→22:56)
[2022-11-13] MEDS: INSULIN GLARGINE, HUMAN 1 UNIT/0.01 ML SQ SCH (21:09)
[2022-11-13] MEDS: CALCIUM (OYSTER SHELL) 500 MG TABLET PO SCH (21:10)
[2022-11-13] MEDS: APIXABAN 5 MG TABLET PO SCH (21:10)
[2022-11-13] MEDS: FAMOTIDINE 20 MG TABLET PO SCH (21:10)
[2022-11-13] MEDS: DULoxetine 30 MG CAPSULE PO SCH (21:10)
[2022-11-13] MEDS: DOCUSATE SODIUM 100 MG CAPSULE PO SCH (21:11)
[2022-11-14] MEDS: METHOCARBAMOL 1,000 MG/10 ML VIAL IV PRN ×2 (01:01→08:44)
[2022-11-14] MEDS: 0.9 % SODIUM CHLORIDE 10 ML SYRINGE IV SCH ×3 (06:08→21:18)
[2022-11-14] MEDS: 0.9 % SODIUM CHLORIDE 1,000 ML IV SCH ×4 (07:33→18:47)
[2022-11-14] MEDS ORDERED: predniSONE 20 MG TABLET PO SCH (08:00)
[2022-11-14 08:19] LABS: Basophils # (Auto) 0.12 K/mcL (0.00-0.30); Basophils % (Auto) 0.7 % (0.0-2.0); Eosinophils # (Auto) 0.23 K/mcL (0.00-0.70); Eosinophils % (Auto) 1.3 % (0.0-7.0); Hematocrit 47.2 % (34.1-44.9); Hemoglobin 14.5 g/dL (11.2-15.7); Lymphocytes # (Auto) 2.84 K/mcL (1.50-4.80); Lymphocytes % (Auto) 15.8 % (15.5-49.0); Mean Cell Volume 89.1 fL (80.0-100.0); Mean Corpuscular HGB Conc 30.7 g/dL (31.0-36.0); Mean Platelet Volume 9.8 fL (8.8-12.5); Monocytes # (Auto) 1.52 K/mcL (0.10-0.90); Monocytes % (Auto) 8.5 % (1.0-12.0); Neutrophils % (Auto) 71.2 % (38.0-78.0); Platelet Count 312 K/mcL (140-440); Red Cell Distribution Width 15.6 % (11.5-14.5)
[2022-11-14] MEDS: INSULIN LISPRO 1 UNIT/0.01 ML UNIT SQ SCH ×4 (08:42→21:24)
[2022-11-14] MEDS: PANTOPRAZOLE 40 MG TABLET PO SCH (08:43)
[2022-11-14] MEDS: DULoxetine 30 MG CAPSULE PO SCH ×2 (08:43→21:29)
[2022-11-14] MEDS: CALCIUM (OYSTER SHELL) 500 MG TABLET PO SCH ×2 (08:43→21:25)
[2022-11-14] MEDS: APIXABAN 5 MG TABLET PO SCH ×2 (08:43→21:24)
[2022-11-14] MEDS: MAGNESIUM OXIDE 400 MG TABLET PO SCH (08:43)
[2022-11-14] MEDS: BACLOFEN 10 MG TABLET PO SCH ×3 (08:43→21:25)
[2022-11-14] MEDS: FAMOTIDINE 20 MG TABLET PO SCH ×2 (08:43→21:29)
[2022-11-14] MEDS: GABAPENTIN 300 MG CAPSULE PO SCH ×4 (08:44→21:25)
[2022-11-14] MEDS: cefTRIAXone 1 GM VIAL IV SCH (08:44)
[2022-11-14] MEDS: LEVOTHYROXINE 100 MCG TABLET PO SCH (08:47)
[2022-11-14 09:20] LABS: Estimated Average Glucose(eAG) 189 mg/dL; Hemoglobin A1C 8.2 % Hgb (4.0-6.0)
[2022-11-14] MEDS: DOCUSATE SODIUM 100 MG CAPSULE PO SCH ×2 (09:52→20:23)
[2022-11-14 10:03] LABS: ALT/SGPT 136 U/L (<40); AST/SGOT 34 U/L (<32); Albumin/Globulin Ratio 0.8 (1.0-2.3); Alkaline Phosphatase 179 U/L (39-117); Bilirubin,Total 0.2 mg/dL (0.1-1.0); Blood Urea Nitrogen 40 mg/dL (6-20); Calcium 7.2 mg/dL (8.6-10.4); Carbon Dioxide 9 mmol/L (22-30); Chloride 98 mmol/L (96-108); Glomerular Filtration Rate 40; Glucose 202 mg/dL (70-105)
[2022-11-14] MEDS ORDERED: predniSONE 20 MG TABLET PO ONE (10:30)
[2022-11-14] MEDS: ONDANSETRON 4 MG/2 ML VIAL IV PRN (11:40)
[2022-11-14] MEDS: NYSTATIN POWDER BOTTLE 15GM TOPICAL SCH ×2 (11:41→21:25)
[2022-11-14] MEDS: PYRIDOSTIGMINE 60 MG TABLET PO SCH ×4 (12:20→21:25)
--- NOTE | 2022-11-14 13:45 | Internal Med Progress Note ---
SUBJECTIVE Subjective Patient information: Note initiated : 11/14/22 at 1:41 pm Service Date, if different from initiated Date: [] Patient: Dayanna Guo a 61 y/o F admitted on 11/13/22 for weakness. Chief Complaint: [] Interval history: Ms. Guo is a 61 year old F history of myasthenia gravis, hypothyroidism, type 2 diabetes mellitus, status post urostomy placement, presenting with 3-day history of leg cramps, nausea, vomiting, diaphoresis, dysuria. Patient has a history of frequent urinary tract infections. Vital signs at ED presentations significant for tachycardia heart rate in the 1 teens beats per minutes. Labs significant for leukocytosis with WBC 19.2. Serum lactic acid 3.4. Potassium level 5.4. BUN/creatinine 52, 1.4, respectively. UA suggesting the presence of urinary tract infection. Admission request was called for urinary tract infections with clinical sepsis. 11/14: Afebrile overnight. WBC 18.0. Blood and urine cultures no growth to date. Patient has been lethargic. Increase Prednisone from 20 to 40mg PO daily, stress dose. Continue Rocephin and NS@100cc/hr while monitoring culture results. Pending physical therapy evaluation and treatment for placement planning. Constitutional Vitals: Vital Signs Temp Pulse Resp BP Pulse Ox O2 Del Method O2 Flow Rate 36.5 C 83 15 173/92 100 Room Air 0 11/14/22 12:00 11/14/22 12:00 11/14/22 12:00 11/14/22 12:00 11/14/22 12:00 11/14/22 12:00 11/14/22 06:01 Period Temp Pulse Resp BP Sys/Archuleta Pulse Ox O2 Del Method O2 Flow Rate Last 24 Hr 36.3 C-36.8 C 83-117 10-05 110-175/66-98 90-100 Room Air-Room Air 0-0 Intake and Output 11/14/22 11/14/22 11/14/22 03:59 11:59 19:59 Intake Total 1100 2780 Output Total 203 777 Balance 897 2002 Weight 118.614 kg 118.614 kg Patient Weight 11/15/22 03:59 Weight 118.614 kg Intake & Output: Intake & Output 11/14/22 11/14/22 11/14/22 03:59 11:59 19:59 Intake Total 1100 2780 Output Total 203 777 Balance 897 2002 Weight 118.614 kg 118.614 kg Intake: IV 1000 2000 Sodium Chloride 0.9% 1,000 ml @ 1000 2000 100 mls/hr IV .Q10H MALENA Rx#: [id number] Oral 100 780 Output: # of times incontinent of urine 3 2 Stool 200 775 Other: Percent of Meal Consumed Refused Urine Odor Normal Stool Size Moderate Large Stool Color Brown Yellow Yellow Green Stool Consistency Liquid Liquid Watery Loose # Voids 1 Exam: sleeping Head Head exam: Present atraumatic and normal inspection Eye Eye exam: Present normal appearance ENT ENT exam: Present mucous membranes moist, normal exam and normal external ear exam Neck Neck exam: Present normal inspection Respiratory Respiratory exam: Present normal respiratory exam Cardiovascular Cardiovascular exam: Present normal rate and rhythm GI/Abdominal GI/Abdominal exam: Present normal bowel sounds Back Exam Back exam: Present normal inspection Neurological Exam Additional comments: sleeping Skin Skin exam: Present intact and warm OBJ DATA Labs 11/14/22 05:29 11/14/22 08:10 Labs: Abnormal Lab Results 11/14/22 11/14/22 11/13/22 08:10 05:29 10:30 WBC 18.0 H RBC Hgb Hct 47.2 H POC Hct MCHC 30.7 L RDW 15.6 H Plt Count Immature Gran % (Auto) 2.5 H Neut % (Auto) Lymph % (Auto) [place] # (Auto) 1.52 H Immature Gran # 0.45 H Absolute Neutrophils 12.80 H POC PT POC INR POC VBG pH POC VBG pCO2 at Temp POC VBG pO2 POC VBG HCO3 POC VBG Total CO2 POC Venous O2 Sat POC VBG Base Excess VBG Lactic Acid Sodium 125 L POC Potassium Chloride Carbon Dioxide 9 L* POC Total CO2 Anion Gap 18.0 H POC BUN BUN 40 H Creatinine 1.4 H POC Creatinine Glucose 202 H POC Glucose Hemoglobin A1c 8.2 H Calcium 7.2 L POC WB Ioniz Calcium AST 34 H ALT 136 H Alkaline Phosphatase 179 H NT-Pro-B Natriuret Pep Total Protein Albumin 3.0 L Globulin 4.0 H Albumin/Globulin Ratio 0.8 L Procalcitonin 0.26 H Urine Appearance Urine Protein Urine Occult Blood Ur Leukocyte Esterase Urine RBC Urine WBC Hyaline Casts Granular Casts Urine Mucus 11/13/22 11/13/22 11/12/22 10:29 10:29 23:46 WBC 21.7 H RBC 5.94 H Hgb 16.1 H Hct 52.8 H POC Hct MCHC 30.5 L RDW 16.0 H Plt Count Immature Gran % (Auto) 1.9 H Neut % (Auto) Lymph % (Auto) 13.3 L [place] # (Auto) 2.13 H Immature Gran # 0.42 H Absolute Neutrophils 15.96 H POC PT POC INR POC VBG pH POC VBG pCO2 at Temp POC VBG pO2 POC VBG HCO3 POC VBG Total CO2 POC Venous O2 Sat POC VBG Base Excess VBG Lactic Acid Sodium 127 L POC Potassium Chloride 95 L Carbon Dioxide 12 L POC Total CO2 Anion Gap 20.0 H POC BUN BUN 50 H Creatinine 1.5 H POC Creatinine Glucose 214 H POC Glucose Hemoglobin A1c Calcium 6.8 L POC WB Ioniz Calcium AST 186 H ALT 210 H Alkaline Phosphatase 203 H NT-Pro-B Natriuret Pep Total Protein Albumin Globulin 4.2 H Albumin/Globulin Ratio 0.8 L Procalcitonin Urine Appearance Cloudy A Urine Protein 30 A Urine Occult Blood Moderate A Ur Leukocyte Esterase Trace A Urine RBC 15 H Urine WBC 104 H Hyaline Casts 4 H Granular Casts 1 H Urine Mucus Few A 11/12/22 11/12/22 11/12/22 21:56 21:35 21:35 WBC RBC Hgb Hct POC Hct 60.0 H MCHC RDW Plt Count Immature Gran % (Auto) Neut % (Auto) Lymph % (Auto) [place] # (Auto) Immature Gran # Absolute Neutrophils POC PT 25.4 H POC INR 2.2 H POC VBG pH 7.31 L POC VBG pCO2 at Temp 35.4 L POC VBG pO2 46 H POC VBG HCO3 17.7 L POC VBG Total CO2 19.0 L POC Venous O2 Sat 78.0 H POC VBG Base Excess -9.0 L VBG Lactic Acid 3.4 H Sodium POC Potassium 5.4 H Chloride Carbon Dioxide POC Total CO2 19.0 L Anion Gap POC BUN 52 H BUN Creatinine POC Creatinine 1.4 H Glucose POC Glucose 328 H Hemoglobin A1c Calcium POC WB Ioniz Calcium 0.87 L AST ALT Alkaline Phosphatase NT-Pro-B Natriuret Pep Total Protein Albumin Globulin Albumin/Globulin Ratio Procalcitonin Urine Appearance Urine Protein Urine Occult Blood Ur Leukocyte Esterase Urine RBC Urine WBC Hyaline Casts Granular Casts Urine Mucus 11/12/22 11/12/22 21:30 21:30 WBC 19.2 H RBC 6.59 H Hgb 17.6 H Hct 57.1 H POC Hct MCHC 30.8 L RDW 17.0 H Plt Count 448 H Immature Gran % (Auto) 1.6 H Neut % (Auto) 83.7 H Lymph % (Auto) 10.2 L [place] # (Auto) Immature Gran # 0.31 H Absolute Neutrophils 16.10 H POC PT POC INR POC VBG pH POC VBG pCO2 at Temp POC VBG pO2 POC VBG HCO3 POC VBG Total CO2 POC Venous O2 Sat POC VBG Base Excess VBG Lactic Acid Sodium POC Potassium Chloride Carbon Dioxide POC Total CO2 Anion Gap POC BUN BUN Creatinine POC Creatinine Glucose POC Glucose Hemoglobin A1c Calcium POC WB Ioniz Calcium AST 72 H ALT 123 H Alkaline Phosphatase 205 H NT-Pro-B Natriuret Pep 151.6 H Total Protein 8.7 H Albumin Globulin 4.4 H Albumin/Globulin Ratio Procalcitonin Urine Appearance Urine Protein Urine Occult Blood Ur Leukocyte Esterase Urine RBC Urine WBC Hyaline Casts Granular Casts Urine Mucus Meds: Medications Acetaminophen (Acetaminophen 325 Mg Tablet) 650 mg PO Q6HP PRN; Protocol PRN Reason: Per Pain Protocol/Fever > 101 Albuterol/Ipratropium (Ipratropium/Albuterol 3 Ml Ampul.Neb) 3 ml NEB Q4HRT PRN PRN Reason: Wheezing Apixaban (Apixaban 5 Mg Tablet) 5 mg PO BID [facility] Last Admin: 11/14/22 08:43 Dose: 5 mg Baclofen (Baclofen 10 Mg Tablet) 10 mg PO TID [facility] Last Admin: 11/14/22 08:43 Dose: 10 mg Calcitriol (Calcitriol 0.25 Mcg Capsule) 0.25 mcg PO TuThSa@0900 [facility] Last Admin: 11/13/22 10:50 Dose: 0.25 mcg Calcium Carbonate/Glycine (Calcium (Oyster Shell) 500 Mg Tablet) 1,000 mg PO BID [facility] Last Admin: 11/14/22 08:43 Dose: 1,000 mg Ceftriaxone Sodium (Ceftriaxone 1 Gm Vial) 1 gm IV Q24H [facility] Last Admin: 11/14/22 08:44 Dose: 1 gm Dextrose (Dextrose 50% 50 Ml Vial) 0 ml IV UD PRN PRN Reason: Per Sliding Scale Diagnostic Test (Pha) (Accu-Chek 1 Each Strip) 1 each FS ACHS [facility] Last Admin: 11/14/22 11:59 Dose: 1 each Docusate Sodium (Docusate Sodium 100 Mg Capsule) 100 mg PO BID [facility] Last Admin: 11/14/22 09:52 Dose: Not Given Duloxetine HCl (Duloxetine 30 Mg Capsule) 30 mg PO BID [facility] Last Admin: 11/14/22 08:43 Dose: 30 mg Famotidine (Famotidine 20 Mg Tablet) 20 mg PO BID [facility] Last Admin: 11/14/22 08:43 Dose: 20 mg Gabapentin (Gabapentin 300 Mg Capsule) 300 mg PO QID [facility] Last Admin: 11/14/22 13:22 Dose: 300 mg Glucose (Dextrose 31 Gm Oral.Susp) 15 gm PO PRN PRN PRN Reason: Hypoglycemia Sodium Chloride (Sodium Chloride 0.9%) 1,000 mls @ 100 mls/hr IV .Q10H [facility] Last Admin: 11/14/22 07:46 Dose: 100 mls/hr Insulin Glargine (Insulin Glargine, Human 1 Unit/0.01 Ml) 23 unit SQ [facility] Last Admin: 11/13/22 21:09 Dose: 23 units Insulin Human Lispro (Insulin Lispro 1 Unit/0.01 Ml Unit) 0 unit SQ [facility]; Protocol Last Admin: 11/14/22 12:08 Dose: 3 units Lactulose (Lactulose 20 Gm/30 Ml Oral.[place]) 10 gm PO DAILYP PRN PRN Reason: Constipation Levothyroxine Sodium (Levothyroxine 100 Mcg Tablet) 200 mcg PO ACB [facility] Last Admin: 11/14/22 08:47 Dose: 200 mcg Magnesium Oxide (Magnesium Oxide 400 Mg Tablet) 800 mg PO DAILY [facility] Last Admin: 11/14/22 08:43 Dose: 800 mg Methocarbamol (Methocarbamol 1,000 Mg/10 Ml Vial) 1,000 mg IV Q8HP PRN PRN Reason: Muscle Spasm Last Admin: 11/14/22 08:44 Dose: 1,000 mg Nystatin (Nystatin Powder Bottle 15gm) 1 dose TOPICAL BID [facility] Last Admin: 11/14/22 11:41 Dose: 1 dose Ondansetron HCl (Ondansetron 4 Mg/2 Ml Vial) 4 mg IV Q4HP PRN; Protocol PRN Reason: Nausea And Vomiting Last Admin: 11/14/22 11:40 Dose: 4 mg Pantoprazole Sodium (Pantoprazole 40 Mg Tablet) 40 mg PO [facility] Last Admin: 11/14/22 08:43 Dose: 40 mg Prednisone (Prednisone 20 Mg Tablet) 40 mg PO [facility] Stop: 11/16/22 08:01 Prednisone (Prednisone 20 Mg Tablet) 20 mg PO [facility] Pyridostigmine [place] (Pyridostigmine 60 Mg Tablet) 60 mg PO QID [facility] Last Admin: 11/14/22 12:36 Dose: 60 mg Senna (Sennosides 1 Tablet) 2 tab PO [facility] PRN PRN Reason: Constipation Sodium Chloride (0.9 % Sodium Chloride 10 Ml Syringe) 10 ml IV Q8 [facility] Last Admin: 11/14/22 06:08 Dose: Not Given A/P Assessment and plan (1) Myasthenia gravis: Status: Chronic (2) Hypothyroidism: Status: Chronic Qualifiers: Hypothyroidism type: congenital with diffuse goiter Qualified Code(s): E03.0 - Congenital hypothyroidism with diffuse goiter (3) Diabetes mellitus type 2, uncontrolled: Status: Chronic Qualifiers: Coma presence: without coma (4) Hyperkalemia: Status: Acute (5) Severe sepsis: Status: Chronic (6) Stage 1 acute kidney injury: Status: Acute (7) UTI (urinary tract infection): Status: Acute (8) Hyponatremia: Status: Acute Narrative A/P Narrative: Assessment and Plans: 1. UTI with severe sepsis: Inpatient PCU Serial lactic acid 1.5 Procalcitonin 0.26 Blood culture, no growth to date Urine culture, no growth to date cbc w/ auto diff in the morning to trend WBC s/p IV fluid bolus given in the ER, to be followed by NS@100cc/hr Rocephin Physical therapy evaluation and treatment 2. T2DM: HgA1c 8.2 Hold oral hypoglycemics Insulin Lantus 23 unit HS Insulin Lispro SSI AC HS Accu Check AC HS Hypoglycemia protocol Diabetic diet 3. Myasthenia Gravis: Increase Prednisone from 20 to 40mg PO daily, stress dose Pyridostigmine 4. Stage 1 acute kidney injury: Avoid nephrotoxic agents s/p IV fluid bolus given in the ER, to be followed by NS@100cc/hr CMP in the morning to trend kidney functions 5. Hyperkalemia: s/p IV fluid bolus given in the ER, to be followed by NS@100cc/hr CMP in the morning to trend serum potassium level 6. Hypothyroidism: Continue thyroid replacement therapy 7. Hyponatremia: Increase Prednisone from 20 to 40mg PO daily, stress dose s/p IV fluid bolus given in the ER, to be followed by NS@100cc/hr CMP in the morning to trend serum sodium level GI ppx: PPI DVT ppx: Eliquis Code status: Full Prognosis: guarded Disposition: inpatient PCU; PT Time Spent With Patient Time: Total time spent is greater than 50% in coordination of care (as documented) at patient's floor/unit and/or counseling patient: Subsequent: Total time with patient: 35 - 49 minutes
[2022-11-14 14:25] LABS: Amphetamine Screen,Urine None detected; Barbiturate Screen,Urine None detected; Benzodiazepines Screen,Urine None detected; Cannabinoid Screen,Urine None detected; Cocaine Screen,Urine None detected; Opiate Screen,Urine None detected; Oxycodone, Urine Screen None detected; Phencyclidine Screen,Urine None detected
[2022-11-14] MEDS: INSULIN GLARGINE, HUMAN 1 UNIT/0.01 ML SQ SCH (21:25)
[2022-11-15] MEDS: 0.9 % SODIUM CHLORIDE 1,000 ML IV SCH ×3 (00:42→12:41)
[2022-11-15] MEDS: METHOCARBAMOL 1,000 MG/10 ML VIAL IV PRN ×2 (01:21→11:23)
[2022-11-15] MEDS: 0.9 % SODIUM CHLORIDE 10 ML SYRINGE IV SCH ×3 (05:02→21:57)
[2022-11-15 06:41] LABS: Basophils # (Auto) 0.05 K/mcL (0.00-0.30); Basophils % (Auto) 0.4 % (0.0-2.0); Eosinophils # (Auto) 0.03 K/mcL (0.00-0.70); Eosinophils % (Auto) 0.2 % (0.0-7.0); Hematocrit 42.6 % (34.1-44.9); Hemoglobin 13.7 g/dL (11.2-15.7); Lymphocytes # (Auto) 0.99 K/mcL (1.50-4.80); Lymphocytes % (Auto) 8.2 % (15.5-49.0); Mean Cell Volume 84.7 fL (80.0-100.0); Mean Corpuscular HGB Conc 32.2 g/dL (31.0-36.0); Mean Platelet Volume 9.3 fL (8.8-12.5); Monocytes # (Auto) 0.69 K/mcL (0.10-0.90); Monocytes % (Auto) 5.7 % (1.0-12.0); Platelet Count 302 K/mcL (140-440); RBC 5.03 M/mcL (3.59-5.38); Red Cell Distribution Width 15.2 % (11.5-14.5); WBC 12.1 K/mcL (4.5-11.0)
[2022-11-15] MEDS: ACETAMINOPHEN 325 MG TABLET PO PRN (07:05)
[2022-11-15 07:22] LABS: ALT/SGPT 86 U/L (<40); AST/SGOT 18 U/L (<32); Albumin 2.8 gm/dL (3.2-5.2); Albumin/Globulin Ratio 0.8 (1.0-2.3); Alkaline Phosphatase 153 U/L (39-117); Bilirubin,Total < 0.2 mg/dL (0.1-1.0); Blood Urea Nitrogen 22 mg/dL (6-20); Calcium 7.7 mg/dL (8.6-10.4); Carbon Dioxide 13 mmol/L (22-30); Chloride 105 mmol/L (96-108); Globulin 3.3 gm/dL (2.2-3.7); Glomerular Filtration Rate 61; Glucose 157 mg/dL (70-105)
[2022-11-15] MEDS: CALCIUM (OYSTER SHELL) 500 MG TABLET PO SCH ×2 (08:51→21:56)
[2022-11-15] MEDS: DOCUSATE SODIUM 100 MG CAPSULE PO SCH ×2 (08:51→21:54)
[2022-11-15] MEDS: APIXABAN 5 MG TABLET PO SCH ×2 (08:51→21:54)
[2022-11-15] MEDS: predniSONE 20 MG TABLET PO SCH (08:51)
[2022-11-15] MEDS: FAMOTIDINE 20 MG TABLET PO SCH ×2 (08:51→21:57)
[2022-11-15] MEDS: PANTOPRAZOLE 40 MG TABLET PO SCH (08:51)
[2022-11-15] MEDS: GABAPENTIN 300 MG CAPSULE PO SCH ×4 (08:52→21:56)
[2022-11-15] MEDS: CALCITRIOL 0.25 MCG CAPSULE PO SCH (08:52)
[2022-11-15] MEDS: DULoxetine 30 MG CAPSULE PO SCH ×2 (08:52→21:54)
[2022-11-15] MEDS: MAGNESIUM OXIDE 400 MG TABLET PO SCH (08:52)
[2022-11-15] MEDS: LEVOTHYROXINE 100 MCG TABLET PO SCH (08:52)
[2022-11-15] MEDS: KETOROLAC 15 MG/ML VIAL IV PRN ×2 (08:53→14:30)
--- NOTE | 2022-11-15 08:53 | Internal Med Progress Note ---
SUBJECTIVE Subjective Patient information: Note initiated : 11/15/22 at 8:48 am Service Date, if different from initiated Date: [] Patient: Dayanna Guo a 61 y/o F admitted on 11/13/22 for weakness. Chief Complaint: [] Interval history: Ms. Guo is a 61 year old F history of myasthenia gravis, hypothyroidism, type 2 diabetes mellitus, status post urostomy placement, presenting with 3-day history of leg cramps, nausea, vomiting, diaphoresis, dysuria. Patient has a history of frequent urinary tract infections. Vital signs at ED presentations significant for tachycardia heart rate in the 1 teens beats per minutes. Labs significant for leukocytosis with WBC 19.2. Serum lactic acid 3.4. Potassium level 5.4. BUN/creatinine 52, 1.4, respectively. UA suggesting the presence of urinary tract infection. Admission request was called for urinary tract infections with clinical sepsis. 2/: Afebrile overnight. WBC 18.0. Blood and urine cultures no growth to date. Patient has been lethargic. Increase Prednisone from 20 to 40mg PO daily, stress dose. Continue Rocephin and NS@100cc/hr while monitoring culture results. Pending physical therapy evaluation and treatment for placement planning. 2/2: Patient more awake and alert, although she is still c/o general body weakness and confusion. Serum sodium 125-->135. Potassium 3.3. WBC 18.0-->12.1. Urine culture E coli; blood culture no growth to date. Prednisone 40mg PO daily day 2/3. Saline lock. Potassium chloride PO replacement. BMP at 3pm. Amlodipine for better blood pressure control. Toradol IV PRN back pain. Pending physical therapy evaluation and treatment for placement planning. Constitutional Vitals: Vital Signs Temp Pulse Resp BP Pulse Ox O2 Del Method O2 Flow Rate 36.4 C 81 16 154/80 98 Room Air 0 11/15/22 07:50 11/15/22 07:50 11/15/22 07:50 11/15/22 08:00 11/15/22 07:50 11/15/22 06:00 11/14/22 06:01 Period Temp Pulse Resp BP Sys/[place] Pulse Ox O2 Del Method O2 Flow Rate Last 24 Hr 36.3 C-36.6 C 77-89 10-18 132-175/68-120 92-100 Room Air-Room Air Intake and Output 11/14/22 11/15/22 11/15/22 19:59 03:59 11:59 Intake Total 1680 1240 Output Total 1101 700 2 Balance 579 -700 1238 Weight 114.033 kg Intake & Output: Intake & Output 11/14/22 11/15/22 11/15/22 19:59 03:59 11:59 Intake Total 1680 1240 Output Total 1101 700 2 Balance 579 -700 1238 Weight 114.033 kg Intake: IV 1000 1000 Sodium Chloride 0.9% 1,000 ml @ 1000 1000 100 mls/hr IV .Q10H MALENA Rx#: [id number] Oral 680 240 Output: Urine Catheter Amount 700 Void Amount 1100 # of times incontinent of urine 1 2 Stool 0 Other: Meal Dinner Percent of Meal Consumed 25% Feeding Ability Independent Urine Appearance Cloudy Clear Sediment Urine Color Dark Yellow Yellow # Voids 1 1 Exam: sleeping Head Head exam: Present atraumatic and normal inspection Eye Eye exam: Present normal appearance ENT ENT exam: Present mucous membranes moist, normal exam and normal external ear exam Neck Neck exam: Present normal inspection Respiratory Respiratory exam: Present normal respiratory exam Cardiovascular Cardiovascular exam: Present normal rate and rhythm GI/Abdominal GI/Abdominal exam: Present normal bowel sounds Back Exam Back exam: Present normal inspection Neurological Exam Neurological exam: Present alert and oriented X3 Skin Skin exam: Present intact and warm OBJ DATA Labs 11/15/22 05:13 11/15/22 05:13 Labs: Abnormal Lab Results 11/15/22 11/15/22 11/14/22 05:13 05:13 08:10 WBC 12.1 H RBC Hgb Hct POC Hct MCHC RDW 15.2 H Plt Count Immature Gran % (Auto) 2.5 H Neut % (Auto) 83.0 H Lymph % (Auto) 8.2 L Lymph # (Auto) 0.99 L [place] # (Auto) Immature Gran # 0.30 H Absolute Neutrophils 9.99 H POC PT POC INR POC VBG pH POC VBG pCO2 at Temp POC VBG pO2 POC VBG HCO3 POC VBG Total CO2 POC Venous O2 Sat POC VBG Base Excess VBG Lactic Acid Sodium 125 L POC Potassium Chloride Carbon Dioxide 13 L 9 L* POC Total CO2 Anion Gap 17.0 H 18.0 H POC BUN BUN 22 H 40 H Creatinine 1.4 H POC Creatinine Glucose 157 H 202 H POC Glucose Hemoglobin A1c 8.2 H Calcium 7.7 L 7.2 L POC WB Ioniz Calcium AST 34 H ALT 86 H 136 H Alkaline Phosphatase 153 H 179 H NT-Pro-B Natriuret Pep Total Protein Albumin 2.8 L 3.0 L Globulin 4.0 H Albumin/Globulin Ratio 0.8 L 0.8 L Procalcitonin Urine Appearance Urine Protein Urine Occult Blood Ur Leukocyte Esterase Urine RBC Urine WBC Hyaline Casts Granular Casts Urine Mucus 11/14/22 11/13/22 11/13/22 05:29 10:30 10:29 WBC 18.0 H RBC Hgb Hct 47.2 H POC Hct MCHC 30.7 L RDW 15.6 H Plt Count Immature Gran % (Auto) 2.5 H Neut % (Auto) Lymph % (Auto) Lymph # (Auto) [place] # (Auto) 1.52 H Immature Gran # 0.45 H Absolute Neutrophils 12.80 H POC PT POC INR POC VBG pH POC VBG pCO2 at Temp POC VBG pO2 POC VBG HCO3 POC VBG Total CO2 POC Venous O2 Sat POC VBG Base Excess VBG Lactic Acid Sodium 127 L POC Potassium Chloride 95 L Carbon Dioxide 12 L POC Total CO2 Anion Gap 20.0 H POC BUN BUN 50 H Creatinine 1.5 H POC Creatinine Glucose 214 H POC Glucose Hemoglobin A1c Calcium 6.8 L POC WB Ioniz Calcium AST 186 H ALT 210 H Alkaline Phosphatase 203 H NT-Pro-B Natriuret Pep Total Protein Albumin Globulin 4.2 H Albumin/Globulin Ratio 0.8 L Procalcitonin 0.26 H Urine Appearance Urine Protein Urine Occult Blood Ur Leukocyte Esterase Urine RBC Urine WBC Hyaline Casts Granular Casts Urine Mucus 11/13/22 11/12/22 11/12/22 10:29 23:46 21:56 WBC 21.7 H RBC 5.94 H Hgb 16.1 H Hct 52.8 H POC Hct MCHC 30.5 L RDW 16.0 H Plt Count Immature Gran % (Auto) 1.9 H Neut % (Auto) Lymph % (Auto) 13.3 L Lymph # (Auto) [place] # (Auto) 2.13 H Immature Gran # 0.42 H Absolute Neutrophils 15.96 H POC PT 25.4 H POC INR 2.2 H POC VBG pH POC VBG pCO2 at Temp POC VBG pO2 POC VBG HCO3 POC VBG Total CO2 POC Venous O2 Sat POC VBG Base Excess VBG Lactic Acid Sodium POC Potassium Chloride Carbon Dioxide POC Total CO2 Anion Gap POC BUN BUN Creatinine POC Creatinine Glucose POC Glucose Hemoglobin A1c Calcium POC WB Ioniz Calcium AST ALT Alkaline Phosphatase NT-Pro-B Natriuret Pep Total Protein Albumin Globulin Albumin/Globulin Ratio Procalcitonin Urine Appearance Cloudy A Urine Protein 30 A Urine Occult Blood Moderate A Ur Leukocyte Esterase Trace A Urine RBC 15 H Urine WBC 104 H Hyaline Casts 4 H Granular Casts 1 H Urine Mucus Few A 11/12/22 11/12/22 11/12/22 21:35 21:35 21:30 WBC RBC Hgb Hct POC Hct 60.0 H MCHC RDW Plt Count Immature Gran % (Auto) Neut % (Auto) Lymph % (Auto) Lymph # (Auto) [place] # (Auto) Immature Gran # Absolute Neutrophils POC PT POC INR POC VBG pH 7.31 L POC VBG pCO2 at Temp 35.4 L POC VBG pO2 46 H POC VBG HCO3 17.7 L POC VBG Total CO2 19.0 L POC Venous O2 Sat 78.0 H POC VBG Base Excess -9.0 L VBG Lactic Acid 3.4 H Sodium POC Potassium 5.4 H Chloride Carbon Dioxide POC Total CO2 19.0 L Anion Gap POC BUN 52 H BUN Creatinine POC Creatinine 1.4 H Glucose POC Glucose 328 H Hemoglobin A1c Calcium POC WB Ioniz Calcium 0.87 L AST 72 H ALT 123 H Alkaline Phosphatase 205 H NT-Pro-B Natriuret Pep 151.6 H Total Protein 8.7 H Albumin Globulin 4.4 H Albumin/Globulin Ratio Procalcitonin Urine Appearance Urine Protein Urine Occult Blood Ur Leukocyte Esterase Urine RBC Urine WBC Hyaline Casts Granular Casts Urine Mucus 11/12/22 21:30 WBC 19.2 H RBC 6.59 H Hgb 17.6 H Hct 57.1 H POC Hct MCHC 30.8 L RDW 17.0 H Plt Count 448 H Immature Gran % (Auto) 1.6 H Neut % (Auto) 83.7 H Lymph % (Auto) 10.2 L Lymph # (Auto) [place] # (Auto) Immature Gran # 0.31 H Absolute Neutrophils 16.10 H POC PT POC INR POC VBG pH POC VBG pCO2 at Temp POC VBG pO2 POC VBG HCO3 POC VBG Total CO2 POC Venous O2 Sat POC VBG Base Excess VBG Lactic Acid Sodium POC Potassium Chloride Carbon Dioxide POC Total CO2 Anion Gap POC BUN BUN Creatinine POC Creatinine Glucose POC Glucose Hemoglobin A1c Calcium POC WB Ioniz Calcium AST ALT Alkaline Phosphatase NT-Pro-B Natriuret Pep Total Protein Albumin Globulin Albumin/Globulin Ratio Procalcitonin Urine Appearance Urine Protein Urine Occult Blood Ur Leukocyte Esterase Urine RBC Urine WBC Hyaline Casts Granular Casts Urine Mucus Meds: Medications Acetaminophen (Acetaminophen 325 Mg Tablet) 650 mg PO Q6HP PRN; Protocol PRN Reason: Per Pain Protocol/Fever > 101 Last Admin: 11/15/22 07:05 Dose: 650 mg Albuterol/Ipratropium (Ipratropium/Albuterol 3 Ml Ampul.Neb) 3 ml NEB Q4HRT PRN PRN Reason: Wheezing Amlodipine Besylate (Amlodipine 10 Mg Tablet) 10 mg PO DAILY [facility] Apixaban (Apixaban 5 Mg Tablet) 5 mg PO BID [facility] Last Admin: 11/14/22 21:24 Dose: 5 mg Baclofen (Baclofen 10 Mg Tablet) 10 mg PO TID [facility] Last Admin: 11/14/22 21:25 Dose: Not Given Calcitriol (Calcitriol 0.25 Mcg Capsule) 0.25 mcg PO TuThSa@0900 [facility] Last Admin: 11/13/22 10:50 Dose: 0.25 mcg Calcium Carbonate/Glycine (Calcium (Oyster Shell) 500 Mg Tablet) 1,000 mg PO BID [facility] Last Admin: 11/14/22 21:25 Dose: 1,000 mg Ceftriaxone Sodium (Ceftriaxone 1 Gm Vial) 1 gm IV Q24H [facility] Last Admin: 11/14/22 08:44 Dose: 1 gm Dextrose (Dextrose 50% 50 Ml Vial) 0 ml IV UD PRN PRN Reason: Per Sliding Scale Diagnostic Test (Pha) (Accu-Chek 1 Each Strip) 1 each FS ACHS [facility] Last Admin: 11/14/22 21:18 Dose: 1 each Docusate Sodium (Docusate Sodium 100 Mg Capsule) 100 mg PO BID [facility] Last Admin: 11/14/22 20:23 Dose: Not Given Duloxetine HCl (Duloxetine 30 Mg Capsule) 30 mg PO BID [facility] Last Admin: 11/14/22 21:29 Dose: 30 mg Famotidine (Famotidine 20 Mg Tablet) 20 mg PO BID [facility] Last Admin: 11/14/22 21:29 Dose: 20 mg Gabapentin (Gabapentin 300 Mg Capsule) 300 mg PO QID [facility] Last Admin: 11/14/22 21:25 Dose: 300 mg Glucose (Dextrose 31 Gm Oral.Susp) 15 gm PO PRN PRN PRN Reason: Hypoglycemia Sodium Chloride (Sodium Chloride 0.9%) 1,000 mls @ 100 mls/hr IV .Q10H [facility] Last Admin: 11/15/22 05:02 Dose: 100 mls/hr Insulin Glargine (Insulin Glargine, Human 1 Unit/0.01 Ml) 23 unit SQ HS [facility] Last Admin: 11/14/22 21:25 Dose: 23 units Insulin Human Lispro (Insulin Lispro 1 Unit/0.01 Ml Unit) 0 unit SQ ACHS [facility]; Protocol Last Admin: 11/14/22 21:24 Dose: 6 units Ketorolac Tromethamine (Ketorolac 30 Mg/Ml Vial) 15 mg IV Q6HP PRN PRN Reason: Pain Stop: 11/17/22 08:47 Lactulose (Lactulose 20 Gm/30 Ml Oral.[place]) 10 gm PO DAILYP PRN PRN Reason: Constipation Levothyroxine Sodium (Levothyroxine 100 Mcg Tablet) 200 mcg PO ACB [facility] Last Admin: 11/14/22 08:47 Dose: 200 mcg Magnesium Oxide (Magnesium Oxide 400 Mg Tablet) 800 mg PO DAILY [facility] Last Admin: 11/14/22 08:43 Dose: 800 mg Methocarbamol (Methocarbamol 1,000 Mg/10 Ml Vial) 1,000 mg IV Q8HP PRN PRN Reason: Muscle Spasm Last Admin: 11/15/22 01:21 Dose: 1,000 mg Nystatin (Nystatin Powder Bottle 15gm) 1 dose TOPICAL BID [facility] Last Admin: 11/14/22 21:25 Dose: 1 dose Ondansetron HCl (Ondansetron 4 Mg/2 Ml Vial) 4 mg IV Q4HP PRN; Protocol PRN Reason: Nausea And Vomiting Last Admin: 11/14/22 11:40 Dose: 4 mg Pantoprazole Sodium (Pantoprazole 40 Mg Tablet) 40 mg PO QAMAC [facility] Last Admin: 11/14/22 08:43 Dose: 40 mg Potassium Chloride ([facility] 20 [facility] Pred[facility]one (Prednisone 20 Mg Tablet) 40 mg PO [facility] Stop: 11/16/22 08:01 Prednisone (Prednisone 20 Mg Tablet) 20 mg PO [facility] Pyridostigmine [place] (Pyridostigmine 60 Mg Tablet) 60 mg PO QID [facility] Last Admin: 11/14/22 21:25 Dose: 60 mg Senna (Sennosides 1 Tablet) 2 tab PO HSP PRN PRN Reason: Constipation Sodium Chloride (0.9 % Sodium Chloride 10 Ml Syringe) 10 ml IV Q8 [facility] Last Admin: 11/15/22 05:02 Dose: Not Given A/P Assessment and plan (1) Myasthenia gravis: Status: Chronic (2) Hypothyroidism: Status: Chronic Qualifiers: Hypothyroidism type: congenital with diffuse goiter Qualified Code(s): 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 UTI with severe sepsis: Inpatient PCU Serial lactic acid 1.5 Procalcitonin 0.26 Blood culture, no growth to date Urine culture, no growth to date cbc w/ auto diff in the morning to trend WBC Saline lock Rocephin Physical therapy evaluation and treatment 2. T2DM: HgA1c 8.2 Hold oral hypoglycemics Insulin Lantus 23 unit HS Insulin Lispro SSI AC HS Accu Check AC HS Hypoglycemia protocol Diabetic diet 3. Myasthenia Gravis: Prednisone 40mg PO daily day 2/3, stress dose Pyridostigmine 4. Stage 1 acute kidney injury: Avoid nephrotoxic agents Saline lock CMP in the morning to trend kidney functions 5. Hypokalemia: Potassium chloride 20 mEq PO BID replacement. Repeat BMP at 3pm Also check serum Mg level and replace if needed 6. Hypothyroidism: Continue thyroid replacement therapy 7. Hyponatremia: Prednisone 40mg PO daily day 2/3, stress dose Saline lock BMP at 3pm GI ppx: PPI DVT ppx: Eliquis Code status: Full Prognosis: Stable Disposition: inpatient PCU; PT Time Spent With Patient Time: Total time spent is greater than 50% in coordination of care (as documented) at patient's floor/unit and/or counseling patient: Subsequent: Total time with patient: 35 - 49 minutes
[2022-11-15] MEDS: amLODIPine 10 MG TABLET PO SCH (09:17)
[2022-11-15] MEDS: PYRIDOSTIGMINE 60 MG TABLET PO SCH ×4 (09:17→21:56)
[2022-11-15] MEDS: NYSTATIN POWDER BOTTLE 15GM TOPICAL SCH ×2 (09:17→21:56)
[2022-11-15] MEDS: cefTRIAXone 1 GM VIAL IV SCH (09:21)
[2022-11-15] MEDS: INSULIN LISPRO 1 UNIT/0.01 ML UNIT SQ SCH ×4 (09:21→21:54)
[2022-11-15] MEDS: BACLOFEN 10 MG TABLET PO SCH ×3 (09:21→21:55)
[2022-11-15] MEDS: ONDANSETRON 4 MG/2 ML VIAL IV PRN (11:23)
--- NOTE | 2022-11-15 13:06 | Internal Med Progress Note ---
SUBJECTIVE Subjective Patient information: Note initiated : 11/15/22 at 12:59 pm Service Date, if different from initiated Date: [] Patient: Dayanna Guo a 61 y/o F admitted on 11/13/22 for weakness. Chief Complaint: [] Interval history: Ms. Guo is a 61 year old F history of myasthenia gravis, hypothyroidism, type 2 diabetes mellitus, status post urostomy placement, presenting with 3-day history of leg cramps, nausea, vomiting, diaphoresis, dysuria. Patient has a history of frequent urinary tract infections. Vital signs at ED presentations significant for tachycardia heart rate in the 1 teens beats per minutes. Labs significant for leukocytosis with WBC 19.2. Serum lactic acid 3.4. Potassium level 5.4. BUN/creatinine 52, 1.4, respectively. UA suggesting the presence of urinary tract infection. Admission request was called for urinary tract infections with clinical sepsis. 2/: Afebrile overnight. WBC 18.0. Blood and urine cultures no growth to date. Patient has been lethargic. Increase Prednisone from 20 to 40mg PO daily, stress dose. Continue Rocephin and NS@100cc/hr while monitoring culture results. Pending physical therapy evaluation and treatment for placement planning. 2/2: Patient more awake and alert, although she is still c/o general body weakness and confusion. Serum sodium 125-->135. Potassium 3.3. WBC 18.0-->12.1. Urine culture E coli; blood culture no growth to date. Prednisone 40mg PO daily day 2/3. Saline lock. Potassium chloride PO replacement. BMP at 3pm. Amlodipine for better blood pressure control. Toradol IV PRN back pain. Pending physical therapy evaluation and treatment for placement planning. Constitutional Vitals: Vital Signs Temp Pulse Resp BP Pulse Ox O2 Del Method O2 Flow Rate 97.4 F 79 12 166/83 99 Room Air 0 11/15/22 11:58 11/15/22 10:01 11/15/22 12:01 11/15/22 12:01 11/15/22 12:01 11/15/22 06:00 11/14/22 06:01 Period Temp Pulse Resp BP Sys/Archuleta Pulse Ox O2 Del Method O2 Flow Rate Last 24 Hr 97.4 F-97.8 F 77-89 10-16 133-174/68-120 92-100 Room Air-Room Air Intake and Output 11/15/22 11/15/22 11/15/22 03:59 11:59 19:59 Intake Total 1637 Output Total 700 3 Balance -700 1634 Weight 114.033 kg Intake & Output: Intake & Output 11/15/22 11/15/22 11/15/22 03:59 11:59 19:59 Intake Total 1637 Output Total 700 3 Balance -700 1634 Weight 114.033 kg Intake: IV 1397 Sodium Chloride 0.9% 1,000 ml @ 1397 100 mls/hr IV .Q10H MALENA Rx#: [id number] Oral 240 Output: Urine Catheter Amount 700 # of times incontinent of urine 3 Other: Meal Breakfast Percent of Meal Consumed 100% Feeding Ability Independent Urine Appearance Clear Urine Color Yellow Stool Size Large Stool Color Brown Stool Consistency Soft Loose # Voids 1 # Bowel Movements 250 Exam: General: Alert, Awake, No acute Distress, obese Eyes/N/T: EOMI, Head/Neck: neck supple, CV: RRR, No murmurs, normal s1/s2 Pulm: Clear b/l, no wheezing/rhonchi/rales Abd: soft, nontender, +BS x4, ostomy Ext: no clubbing/cyanosis/edema Neuro: Alert, no focal deficits, moves all extremities, Skin: warm/dry OBJ DATA Labs 11/15/22 05:13 11/15/22 05:13 Labs: Abnormal Lab Results 11/15/22 11/15/22 11/14/22 05:13 05:13 08:10 WBC 12.1 H RBC Hgb Hct POC Hct MCHC RDW 15.2 H Plt Count Immature Gran % (Auto) 2.5 H Neut % (Auto) 83.0 H Lymph % (Auto) 8.2 L Lymph # (Auto) 0.99 L [place] # (Auto) Immature Gran # 0.30 H Absolute Neutrophils 9.99 H POC PT POC INR POC VBG pH POC VBG pCO2 at Temp POC VBG pO2 POC VBG HCO3 POC VBG Total CO2 POC Venous O2 Sat POC VBG Base Excess VBG Lactic Acid Sodium 125 L POC Potassium Chloride Carbon Dioxide 13 L 9 L* POC Total CO2 Anion Gap 17.0 H 18.0 H POC BUN BUN 22 H 40 H Creatinine 1.4 H POC Creatinine Glucose 157 H 202 H POC Glucose Hemoglobin A1c 8.2 H Calcium 7.7 L 7.2 L POC WB Ioniz Calcium AST 34 H ALT 86 H 136 H Alkaline Phosphatase 153 H 179 H NT-Pro-B Natriuret Pep Total Protein Albumin 2.8 L 3.0 L Globulin 4.0 H Albumin/Globulin Ratio 0.8 L 0.8 L Procalcitonin Urine Appearance Urine Protein Urine Occult Blood Ur Leukocyte Esterase Urine RBC Urine WBC Hyaline Casts Granular Casts Urine Mucus 11/14/22 11/13/22 11/13/22 05:29 10:30 10:29 WBC 18.0 H RBC Hgb Hct 47.2 H POC Hct MCHC 30.7 L RDW 15.6 H Plt Count Immature Gran % (Auto) 2.5 H Neut % (Auto) Lymph % (Auto) Lymph # (Auto) [place] # (Auto) 1.52 H Immature Gran # 0.45 H Absolute Neutrophils 12.80 H POC PT POC INR POC VBG pH POC VBG pCO2 at Temp POC VBG pO2 POC VBG HCO3 POC VBG Total CO2 POC Venous O2 Sat POC VBG Base Excess VBG Lactic Acid Sodium 127 L POC Potassium Chloride 95 L Carbon Dioxide 12 L POC Total CO2 Anion Gap 20.0 H POC BUN BUN 50 H Creatinine 1.5 H POC Creatinine Glucose 214 H POC Glucose Hemoglobin A1c Calcium 6.8 L POC WB Ioniz Calcium AST 186 H ALT 210 H Alkaline Phosphatase 203 H NT-Pro-B Natriuret Pep Total Protein Albumin Globulin 4.2 H Albumin/Globulin Ratio 0.8 L Procalcitonin 0.26 H Urine Appearance Urine Protein Urine Occult Blood Ur Leukocyte Esterase Urine RBC Urine WBC Hyaline Casts Granular Casts Urine Mucus 11/13/22 11/12/22 11/12/22 10:29 23:46 21:56 WBC 21.7 H RBC 5.94 H Hgb 16.1 H Hct 52.8 H POC Hct MCHC 30.5 L RDW 16.0 H Plt Count Immature Gran % (Auto) 1.9 H Neut % (Auto) Lymph % (Auto) 13.3 L Lymph # (Auto) [place] # (Auto) 2.13 H Immature Gran # 0.42 H Absolute Neutrophils 15.96 H POC PT 25.4 H POC INR 2.2 H POC VBG pH POC VBG pCO2 at Temp POC VBG pO2 POC VBG HCO3 POC VBG Total CO2 POC Venous O2 Sat POC VBG Base Excess VBG Lactic Acid Sodium POC Potassium Chloride Carbon Dioxide POC Total CO2 Anion Gap POC BUN BUN Creatinine POC Creatinine Glucose POC Glucose Hemoglobin A1c Calcium POC WB Ioniz Calcium AST ALT Alkaline Phosphatase NT-Pro-B Natriuret Pep Total Protein Albumin Globulin Albumin/Globulin Ratio Procalcitonin Urine Appearance Cloudy A Urine Protein 30 A Urine Occult Blood Moderate A Ur Leukocyte Esterase Trace A Urine RBC 15 H Urine WBC 104 H Hyaline Casts 4 H Granular Casts 1 H Urine Mucus Few A 11/12/22 11/12/22 11/12/22 21:35 21:35 21:30 WBC RBC Hgb Hct POC Hct 60.0 H MCHC RDW Plt Count Immature Gran % (Auto) Neut % (Auto) Lymph % (Auto) Lymph # (Auto) [place] # (Auto) Immature Gran # Absolute Neutrophils POC PT POC INR POC VBG pH 7.31 L POC VBG pCO2 at Temp 35.4 L POC VBG pO2 46 H POC VBG HCO3 17.7 L POC VBG Total CO2 19.0 L POC Venous O2 Sat 78.0 H POC VBG Base Excess -9.0 L VBG Lactic Acid 3.4 H Sodium POC Potassium 5.4 H Chloride Carbon Dioxide POC Total CO2 19.0 L Anion Gap POC BUN 52 H BUN Creatinine POC Creatinine 1.4 H Glucose POC Glucose 328 H Hemoglobin A1c Calcium POC WB Ioniz Calcium 0.87 L AST 72 H ALT 123 H Alkaline Phosphatase 205 H NT-Pro-B Natriuret Pep 151.6 H Total Protein 8.7 H Albumin Globulin 4.4 H Albumin/Globulin Ratio Procalcitonin Urine Appearance Urine Protein Urine Occult Blood Ur Leukocyte Esterase Urine RBC Urine WBC Hyaline Casts Granular Casts Urine Mucus 11/12/22 21:30 WBC 19.2 H RBC 6.59 H Hgb 17.6 H Hct 57.1 H POC Hct MCHC 30.8 L RDW 17.0 H Plt Count 448 H Immature Gran % (Auto) 1.6 H Neut % (Auto) 83.7 H Lymph % (Auto) 10.2 L Lymph # (Auto) [place] # (Auto) Immature Gran # 0.31 H Absolute Neutrophils 16.10 H POC PT POC INR POC VBG pH POC VBG pCO2 at Temp POC VBG pO2 POC VBG HCO3 POC VBG Total CO2 POC Venous O2 Sat POC VBG Base Excess VBG Lactic Acid Sodium POC Potassium Chloride Carbon Dioxide POC Total CO2 Anion Gap POC BUN BUN Creatinine POC Creatinine Glucose POC Glucose Hemoglobin A1c Calcium POC WB Ioniz Calcium AST ALT Alkaline Phosphatase NT-Pro-B Natriuret Pep Total Protein Albumin Globulin Albumin/Globulin Ratio Procalcitonin Urine Appearance Urine Protein Urine Occult Blood Ur Leukocyte Esterase Urine RBC Urine WBC Hyaline Casts Granular Casts Urine Mucus Meds: Medications Acetaminophen (Acetaminophen 325 Mg Tablet) 650 mg PO Q6HP PRN; Protocol PRN Reason: Per Pain Protocol/Fever > 101 Last Admin: 11/15/22 07:05 Dose: 650 mg Albuterol/Ipratropium (Ipratropium/Albuterol 3 Ml Ampul.Neb) 3 ml NEB Q4HRT PRN PRN Reason: Wheezing Amlodipine Besylate (Amlodipine 10 Mg Tablet) 10 mg PO DAILY [facility] Last Admin: 11/15/22 09:17 Dose: 10 mg Apixaban (Apixaban 5 Mg Tablet) 5 mg PO BID [facility] Last Admin: 11/15/22 08:51 Dose: 5 mg Baclofen (Baclofen 10 Mg Tablet) 10 mg PO TID [facility] Last Admin: 11/15/22 09:21 Dose: 10 mg Calcitriol (Calcitriol 0.25 Mcg Capsule) 0.25 mcg PO TuThSa@0900 [facility] Last Admin: 11/15/22 08:52 Dose: 0.25 mcg Calcium Carbonate/Glycine (Calcium (Oyster Shell) 500 Mg Tablet) 1,000 mg PO BID [facility] Last Admin: 11/15/22 08:51 Dose: 1,000 mg Ceftriaxone Sodium (Ceftriaxone 1 Gm Vial) 1 gm IV Q24H [facility] Last Admin: 11/15/22 09:21 Dose: 1 gm Dextrose (Dextrose 50% 50 Ml Vial) 0 ml IV UD PRN PRN Reason: Per Sliding Scale Diagnostic Test (Pha) (Accu-Chek 1 Each Strip) 1 each FS ACHS [facility] Last Admin: 11/15/22 11:57 Dose: 1 each Docusate Sodium (Docusate Sodium 100 Mg Capsule) 100 mg PO BID [facility] Last Admin: 11/15/22 08:51 Dose: 100 mg Duloxetine HCl (Duloxetine 30 Mg Capsule) 30 mg PO BID [facility] Last Admin: 02/02/23 08:52 Dose: 30 mg Famotidine (Famotidine 20 Mg Tablet) 20 mg PO BID [facility] Last Admin: 11/15/22 08:51 Dose: 20 mg Gabapentin (Gabapentin 300 Mg Capsule) 300 mg PO QID [facility] Last Admin: 11/15/22 08:52 Dose: Not Given Glucose (Dextrose 31 Gm Oral.Susp) 15 gm PO PRN PRN PRN Reason: Hypoglycemia Sodium Chloride (Sodium Chloride 0.9%) 1,000 mls @ 100 mls/hr IV .Q10H [facility] Last Admin: 11/15/22 12:41 Dose: Not Given Insulin Glargine (Insulin Glargine, Human 1 Unit/0.01 Ml) 23 unit SQ HS [facility] Last Admin: 11/14/22 21:25 Dose: 23 units Insulin Human Lispro (Insulin Lispro 1 Unit/0.01 Ml Unit) 0 unit SQ ACHS [facility]; Protocol Last Admin: 11/15/22 11:57 Dose: 6 units Ketorolac Tromethamine (Ketorolac 15 Mg/Ml Vial) 15 mg IV Q6HP PRN PRN Reason: Pain Last Admin: 11/15/22 08:53 Dose: 15 mg Lactulose (Lactulose 20 Gm/30 Ml Oral.[place]) 10 gm PO DAILYP PRN PRN Reason: Constipation Levothyroxine Sodium (Levothyroxine 100 Mcg Tablet) 200 mcg PO ACB [facility] Last Admin: 11/15/22 08:52 Dose: 200 mcg Magnesium Oxide (Magnesium Oxide 400 Mg Tablet) 800 mg PO DAILY [facility] Last Admin: 11/15/22 08:52 Dose: 800 mg Methocarbamol (Methocarbamol 1,000 Mg/10 Ml Vial) 1,000 mg IV Q8HP PRN PRN Reason: Muscle Spasm Last Admin: 11/15/22 11:23 Dose: 1,000 mg Nystatin (Nystatin Powder Bottle 15gm) 1 dose TOPICAL BID [facility] Last Admin: 11/15/22 09:17 Dose: 1 dose Ondansetron HCl (Ondansetron 4 Mg/2 Ml Vial) 4 mg IV Q4HP PRN; Protocol PRN Reason: Nausea And Vomiting Last Admin: 11/15/22 11:23 Dose: 4 mg Pantoprazole Sodium (Pantoprazole 40 Mg Tablet) 40 mg PO QAMAC [facility] Last Admin: 11/15/22 08:51 Dose: 40 mg Potassium Chloride (Potassium Chloride 20 Meq Tablet) 20 meq [facility] Prednisone (Prednisone 20 Mg Tablet) 40 mg PO [facility] Stop: 11/16/22 08:01 Last Admin: 11/15/22 08:51 Dose: 40 mg Prednisone (Prednisone 20 Mg Tablet) 20 mg PO [facility] Pyridostigmine [place] (Pyridostigmine 60 Mg Tablet) 60 mg PO QID [facility] Last Admin: 11/15/22 09:17 Dose: 60 mg Senna (Sennosides 1 Tablet) 2 tab PO HSP PRN PRN Reason: Constipation Sodium Chloride (0.9 % Sodium Chloride 10 Ml Syringe) 10 ml IV Q8 [facility] Last Admin: 11/15/22 05:02 Dose: Not Given A/P Narrative A/P Narrative: Assessment and Plans: *UTI with severe sepsis: -Procalcitonin mildly elevated -Blood culture, no growth to date, Urine culture, no growth to date -cbc w/ auto diff in the morning to trend WBC -Rocephin *T2DM w/neuropathy: -HgA1c 8.2 -Hold oral hypoglycemics, -Insulin Lantus 23 unit HS, SSI *h/o Myasthenia Gravis: on chronic prednisone -Prednisone 40mg PO daily day 2/3, stress dose -Pyridostigmine *THANIA: -Avoid nephrotoxic agents -CMP in the morning to trend kidney functions *Hypokalemia: -replace prn and trend, check mag *Hyponatremia: -trend *Hypothyroidism: Continue thyroid replacement therapy *Anemia, chronic: *Generalized weakness/deconditioning: -Physical therapy evaluation and treatment *History of recurrent SBO's: follows with Dr. Currie *Obesity: BMI 43 *h/o Multifocal PE: continuing apixaban *GERD: ppi *ppx: Eliquis Time Spent With Patient Time: Total time spent is greater than 50% in coordination of care (as documented) at patient's floor/unit and/or counseling patient:
[2022-11-15] MEDS: SODIUM BICARBONATE 650 MG TABLET PO SCH ×3 (14:30→21:57)
[2022-11-15] MEDS: POTASSIUM CHLORIDE 20 MEQ TABLET PO SCH (16:48)
[2022-11-15 18:45] LABS: Blood Urea Nitrogen 19 mg/dL (6-20); Calcium 8.2 mg/dL (8.6-10.4); Carbon Dioxide 14 mmol/L (22-30); Chloride 101 mmol/L (96-108); Glomerular Filtration Rate 49; Glucose 220 mg/dL (70-105)
[2022-11-15] MEDS: INSULIN GLARGINE, HUMAN 1 UNIT/0.01 ML SQ SCH (21:55)
[2022-11-16] MEDS: 0.9 % SODIUM CHLORIDE 1,000 ML IV SCH ×2 (00:15→08:30)
[2022-11-16] MEDS: 0.9 % SODIUM CHLORIDE 10 ML SYRINGE IV SCH ×3 (06:13→22:17)
[2022-11-16] MEDS: INSULIN LISPRO 1 UNIT/0.01 ML UNIT SQ SCH ×4 (07:29→22:15)
[2022-11-16] MEDS: PANTOPRAZOLE 40 MG TABLET PO SCH (07:29)
[2022-11-16] MEDS: predniSONE 20 MG TABLET PO SCH (07:29)
[2022-11-16] MEDS: ACETAMINOPHEN 325 MG TABLET PO PRN ×2 (07:30→17:11)
[2022-11-16] MEDS: LEVOTHYROXINE 100 MCG TABLET PO SCH (07:33)
--- NOTE | 2022-11-16 07:52 | Internal Med Progress Note ---
SUBJECTIVE Subjective Patient information: Note initiated : 11/16/22 at 7:50 am Service Date, if different from initiated Date: [] Patient: Dayanna uGo a 61 y/o F admitted on 11/13/22 for weakness. Chief Complaint: [] Interval history: Ms. Guo is a 61 year old F history of myasthenia gravis, hypothyroidism, type 2 diabetes mellitus, status post urostomy placement, presenting with 3-day history of leg cramps, nausea, vomiting, diaphoresis, dysuria. Patient has a history of frequent urinary tract infections. Vital signs at ED presentations significant for tachycardia heart rate in the 1 teens beats per minutes. Labs significant for leukocytosis with WBC 19.2. Serum lactic acid 3.4. Potassium level 5.4. BUN/creatinine 52, 1.4, respectively. UA suggesting the presence of urinary tract infection. Admission request was called for urinary tract infections with clinical sepsis. 2/: Afebrile overnight. WBC 18.0. Blood and urine cultures no growth to date. Patient has been lethargic. Increase Prednisone from 20 to 40mg PO daily, stress dose. Continue Rocephin and NS@100cc/hr while monitoring culture results. Pending physical therapy evaluation and treatment for placement planning. 2/2: Patient more awake and alert, although she is still c/o general body weakness and confusion. Serum sodium 125-->135. Potassium 3.3. WBC 18.0-->12.1. Urine culture E coli; blood culture no growth to date. Prednisone 40mg PO daily day 2/3. Saline lock. Potassium chloride PO replacement. BMP at 3pm. Amlodipine for better blood pressure control. Toradol IV PRN back pain. Pending physical therapy evaluation and treatment for placement planning. 2/3 Patient states she feels feels worse today. She says she feels dizzy. She feels sleepy and at times having difficulty expressing herself. feels weak. Leukocytosis improved. Vital signs stable. Sodium better and acid base improving. Review of Systems: denies headache/fever/chills/nausea/vomiting/chest or abdominal pain/cough/dyspnea/diarrhea. Otherwise see above. Constitutional Vitals: Vital Signs Temp Pulse Resp BP Pulse Ox O2 Del Method O2 Flow Rate 97.8 F 59 L 12 154/83 96 Room Air 0 11/16/22 04:01 11/16/22 06:28 11/16/22 06:28 11/16/22 06:02 11/16/22 06:28 11/16/22 04:01 11/16/22 04:01 Period Temp Pulse Resp BP Sys/Archuleta Pulse Ox O2 Del Method O2 Flow Rate Last 24 Hr 97.4 F-98.3 F 59-106 10-20 98-166/69-97 94-100 Room Air-Room Air 0-0 Intake and Output 11/15/22 11/16/22 11/16/22 19:59 03:59 11:59 Intake Total 900 200 Output Total 601 800 195 Balance 299 -800 5 Weight 124.284 kg Intake & Output: Intake & Output 11/15/22 11/16/22 11/16/22 19:59 03:59 11:59 Intake Total 900 200 Output Total 601 800 195 Balance 299 -800 5 Weight 124.284 kg Intake: Oral 900 200 Output: Urine Catheter Amount 600 175 Void Amount 400 # of times incontinent of urine 1 Stool 200 200 20 Other: Meal Dinner Percent of Meal Consumed 100% Feeding Ability Independent Urine Appearance Clear Clear Clear Uretheral ([place]) Clear Clear Urine Color Yellow Yellow Yellow Uretheral ([place]) Yellow Yellow Urine Odor Normal Stool Size Large Small Stool Color Brown Brown Brown Green Green Green Stool Consistency Liquid Liquid Liquid # Voids 1 # Bowel Movements 250 Exam: General: Awake, No acute Distress, obese Eyes/N/T: EOMI, Head/Neck: neck supple, CV: RRR, No murmurs, normal s1/s2 Pulm: Clear b/l, no wheezing/rhonchi/rales Abd: soft, nontender, +BS x4, ostomy Ext: no clubbing/cyanosis/edema Neuro: Awake but drowsy at times, falls asleep easily, no focal deficits, moves all extremities, Skin: warm/dry OBJ DATA Labs 11/15/22 05:13 11/15/22 17:54 Labs: Abnormal Lab Results 11/15/22 11/15/22 11/15/22 17:54 05:13 05:13 WBC 12.1 H RBC Hgb Hct MCHC RDW 15.2 H Immature Gran % (Auto) 2.5 H Neut % (Auto) 83.0 H Lymph % (Auto) 8.2 L Lymph # (Auto) 0.99 L [place] # (Auto) Immature Gran # 0.30 H Absolute Neutrophils 9.99 H Sodium 132 L Chloride Carbon Dioxide 14 L 13 L Anion Gap 17.0 H 17.0 H BUN 22 H Creatinine 1.2 H Glucose 220 H 157 H Hemoglobin A1c Calcium 8.2 L 7.7 L AST ALT 86 H Alkaline Phosphatase 153 H Albumin 2.8 L Globulin Albumin/Globulin Ratio 0.8 L Procalcitonin 11/14/22 11/14/22 11/13/22 08:10 05:29 10:30 WBC 18.0 H RBC Hgb Hct 47.2 H MCHC 30.7 L RDW 15.6 H Immature Gran % (Auto) 2.5 H Neut % (Auto) Lymph % (Auto) Lymph # (Auto) [place] # (Auto) 1.52 H Immature Gran # 0.45 H Absolute Neutrophils 12.80 H Sodium 125 L Chloride Carbon Dioxide 9 L* Anion Gap 18.0 H BUN 40 H Creatinine 1.4 H Glucose 202 H Hemoglobin A1c 8.2 H Calcium 7.2 L AST 34 H ALT 136 H Alkaline Phosphatase 179 H Albumin 3.0 L Globulin 4.0 H Albumin/Globulin Ratio 0.8 L Procalcitonin 0.26 H 11/13/22 11/13/22 10:29 10:29 WBC 21.7 H RBC 5.94 H Hgb 16.1 H Hct 52.8 H MCHC 30.5 L RDW 16.0 H Immature Gran % (Auto) 1.9 H Neut % (Auto) Lymph % (Auto) 13.3 L Lymph # (Auto) [place] # (Auto) 2.13 H Immature Gran # 0.42 H Absolute Neutrophils 15.96 H Sodium 127 L Chloride 95 L Carbon Dioxide 12 L Anion Gap 20.0 H BUN 50 H Creatinine 1.5 H Glucose 214 H Hemoglobin A1c Calcium 6.8 L AST 186 H ALT 210 H Alkaline Phosphatase 203 H Albumin Globulin 4.2 H Albumin/Globulin Ratio 0.8 L Procalcitonin Meds: Medications Acetaminophen (Acetaminophen 325 Mg Tablet) 650 mg PO Q6HP PRN; Protocol PRN Reason: Per Pain Protocol/Fever > 101 Last Admin: 11/16/22 07:30 Dose: 650 mg Albuterol/Ipratropium (Ipratropium/Albuterol 3 Ml Ampul.Neb) 3 ml NEB Q4HRT PRN PRN Reason: Wheezing Amlodipine Besylate (Amlodipine 10 Mg Tablet) 10 mg PO DAILY [facility] Last Admin: 11/15/22 09:17 Dose: 10 mg Apixaban (Apixaban 5 Mg Tablet) 5 mg PO BID [facility] Last Admin: 11/15/22 21:54 Dose: 5 mg Baclofen (Baclofen 10 Mg Tablet) 10 mg PO TID [facility] Last Admin: 11/15/22 21:55 Dose: 10 mg Calcitriol (Calcitriol 0.25 Mcg Capsule) 0.25 mcg PO TuThSa@0900 [facility] Last Admin: 11/15/22 08:52 Dose: 0.25 mcg Calcium Carbonate/Glycine (Calcium (Oyster Shell) 500 Mg Tablet) 1,000 mg PO BID [facility] Last Admin: 11/15/22 21:56 Dose: 1,000 mg Ceftriaxone Sodium (Ceftriaxone 1 Gm Vial) 1 gm IV Q24H [facility] Last Admin: 11/15/22 09:21 Dose: 1 gm Dextrose (Dextrose 50% 50 Ml Vial) 0 ml IV UD PRN PRN Reason: Per Sliding Scale Diagnostic Test (Pha) (Accu-Chek 1 Each Strip) 1 each FS ACHS [facility] Last Admin: 11/16/22 07:29 Dose: 1 each Docusate Sodium (Docusate Sodium 100 Mg Capsule) 100 mg PO BID [facility] Last Admin: 11/15/22 21:54 Dose: 100 mg Duloxetine HCl (Duloxetine 30 Mg Capsule) 30 mg PO BID [facility] Last Admin: 11/15/22 21:54 Dose: 30 mg Famotidine (Famotidine 20 Mg Tablet) 20 mg PO BID [facility] Last Admin: 11/15/22 21:57 Dose: 20 mg Gabapentin (Gabapentin 300 Mg Capsule) 300 mg PO QID [facility] Last Admin: 11/15/22 21:56 Dose: 300 mg Glucose (Dextrose 31 Gm Oral.Susp) 15 gm PO PRN PRN PRN Reason: Hypoglycemia Sodium Chloride (Sodium Chloride 0.9%) 1,000 mls @ 100 mls/hr IV .Q10H [facility] Last Admin: 11/16/22 00:15 Dose: Not Given Insulin Glargine (Insulin Glargine, Human 1 Unit/0.01 Ml) 23 unit SQ HS [facility] Last Admin: 11/15/22 21:55 Dose: 23 units Insulin Human Lispro (Insulin Lispro 1 Unit/0.01 Ml Unit) 0 unit SQ ACHS [facility]; Protocol Last Admin: 11/16/22 07:29 Dose: 3 units Ketorolac Tromethamine (Ketorolac 15 Mg/Ml Vial) 15 mg IV Q6HP PRN PRN Reason: Pain Last Admin: 11/15/22 14:30 Dose: 15 mg Lactulose (Lactulose 20 Gm/30 Ml Oral.[place]) 10 gm PO DAILYP PRN PRN Reason: Constipation Levothyroxine Sodium (Levothyroxine 100 Mcg Tablet) 200 mcg PO ACB [facility] Last Admin: 11/16/22 07:33 Dose: 200 mcg Magnesium Oxide (Magnesium Oxide 400 Mg Tablet) 800 mg PO DAILY [facility] Last Admin: 11/15/22 08:52 Dose: 800 mg Methocarbamol (Methocarbamol 1,000 Mg/10 Ml Vial) 1,000 mg IV Q8HP PRN PRN Reason: Muscle Spasm Last Admin: 11/15/22 11:23 Dose: 1,000 mg Nystatin (Nystatin Powder Bottle 15gm) 1 dose TOPICAL BID [facility] Last Admin: 11/15/22 21:56 Dose: 1 dose Ondansetron HCl (Ondansetron 4 Mg/2 Ml Vial) 4 mg IV Q4HP PRN; Protocol PRN Reason: Nausea And Vomiting Last Admin: 11/15/22 11:23 Dose: 4 mg Pantoprazole Sodium ([facility]oprazole 40 Mg Tablet) [facility] Last Admin: 11/16/22 07:29 Dose: 40 mg Potassium Chloride (Potassium Chloride 20 Meq Tablet) [facility] Last Admin: 11/15/22 16:48 Dose: 20 meq Prednisone (Pred[facility] 20 Mg Tablet) [facility] Stop: 11/16/22 08:01 Last Admin: 11/16/22 07:29 Dose: 40 mg Prednisone (Prednisone 20 Mg Tablet) 20 mg PO [facility] Pyridostigmine [place] (Pyridostigmine 60 Mg Tablet) 60 mg PO QID [facility] Last Admin: 11/15/22 21:56 Dose: 60 mg Senna (Sennosides 1 Tablet) 2 tab PO HSP PRN PRN Reason: Constipation Sodium Chloride (0.9 % Sodium Chloride 10 Ml Syringe) 10 ml IV Q8 [facility] Last Admin: 11/16/22 06:13 Dose: 10 ml A/P Narrative A/P Narrative: Assessment and Plans: *UTI(E.coli) w/severe sepsis: -Procalcitonin mildly elevated -Blood culture, no growth to date, Urine culture, no growth to date -cbc w/ auto diff in the morning to trend WBC -Rocephin *T2DM w/neuropathy: -HgA1c 8.2 -Hold oral hypoglycemics, -Insulin Lantus 23 unit HS, SSI *h/o Myasthenia Gravis: on chronic prednisone and Pyridostigmine. [place] -Prednisone 40mg PO daily day 2/3, stress dose -Pyridostigmine *THANIA on CKDIII: -Avoid nephrotoxic agents -CMP in the morning to trend kidney functions *Metabolic acidosis: *Hypokalemia/Hyponatremia/Hypophos: improving -replace prn and trend, check mag *Encephalopathy (intermittent confusion): -CT brain pending, monitor myasthenia gravis *Hypothyroidism: Continue thyroid replacement therapy . tsh wnl *Anemia, chronic: *Generalized weakness/deconditioning: -Physical therapy evaluation and treatment *History of recurrent SBO's: follows with Dr. Currie *Obesity: BMI 43 *h/o Multifocal PE: continuing apixaban *GERD: ppi *Transaminitis: improving *ppx: Eliquis Time Spent With Patient Time: Total time spent is greater than 50% in coordination of care (as documented) at patient's floor/unit and/or counseling patient: Subsequent: Total time with patient: 50 - 65 Minutes
[2022-11-16] MEDS: CALCIUM (OYSTER SHELL) 500 MG TABLET PO SCH ×2 (08:30→22:11)
[2022-11-16] MEDS: MAGNESIUM OXIDE 400 MG TABLET PO SCH (08:30)
[2022-11-16] MEDS: DOCUSATE SODIUM 100 MG CAPSULE PO SCH ×2 (08:30→22:10)
[2022-11-16] MEDS: DULoxetine 30 MG CAPSULE PO SCH ×2 (08:30→22:12)
[2022-11-16] MEDS: GABAPENTIN 300 MG CAPSULE PO SCH ×4 (08:30→22:16)
[2022-11-16] MEDS: FAMOTIDINE 20 MG TABLET PO SCH ×2 (08:30→22:11)
[2022-11-16] MEDS: APIXABAN 5 MG TABLET PO SCH ×2 (08:30→22:11)
[2022-11-16] MEDS: NYSTATIN POWDER BOTTLE 15GM TOPICAL SCH ×2 (08:31→22:17)
[2022-11-16] MEDS: PYRIDOSTIGMINE 60 MG TABLET PO SCH ×4 (08:31→22:13)
[2022-11-16] MEDS: amLODIPine 10 MG TABLET PO SCH (08:31)
[2022-11-16] MEDS: BACLOFEN 10 MG TABLET PO SCH ×3 (08:31→22:12)
[2022-11-16] MEDS: ONDANSETRON 4 MG/2 ML VIAL IV PRN (08:41)
[2022-11-16] MEDS: cefTRIAXone 1 GM VIAL IV SCH (08:41)
[2022-11-16 08:44] LABS: ALT/SGPT 75 U/L (<40); AST/SGOT 19 U/L (<32); Albumin 2.7 gm/dL (3.2-5.2); Alkaline Phosphatase 140 U/L (39-117); Bilirubin,Direct < 0.2 mg/dL (0-0.3); Bilirubin,Total < 0.2 mg/dL (0.1-1.0); Blood Urea Nitrogen 18 mg/dL (6-20); Calcium 8.3 mg/dL (8.6-10.4); Carbon Dioxide 18 mmol/L (22-30); Chloride 106 mmol/L (96-108); Globulin 2.8 gm/dL (2.2-3.7); Glomerular Filtration Rate 61; Glucose 144 mg/dL (70-105); Lactate Dehydrogenase 273 U/L (135-225); Phosphorous 2.3 mg/dL (2.5-4.5); Triglycerides 238 mg/dL (<150); Uric Acid 5.1 mg/dL (2.5-8.0)
[2022-11-16] MEDS: POTASSIUM CHLORIDE 20 MEQ TABLET PO SCH ×2 (08:55→17:10)
[2022-11-16] MEDS: SODIUM BICARBONATE 650 MG TABLET PO SCH ×3 (11:33→23:59)
[2022-11-16] MEDS ORDERED: methylPREDNISolone SOD SUCC 125 MG/2 ML VIAL IV ONE (11:51)
--- NOTE | 2022-11-16 14:04 | Cat Scan Report ---
INDICATION: confusion COMPARISON: None. TECHNIQUE: Axial noncontrast-enhanced images through the brain. Sagittally and coronally reformatted images. FINDINGS: Cerebral hemispheres:[No acute intra-axial hemorrhage. No focal intra-axial attenuation abnormalities or localized mass effect. There is mild ventricular enlargement. There is mild white matter abnormality. White matter attenuation abnormality may be secondary to small vessel ischemic change. Interstitial edema is possible. Clinical correlation for symptoms of normal pressure hydrocephalus recommended (ataxia, incontinence, dementia). Brainstem and cerebellum:No intra-axial abnormality Extra-axial:No acute hemorrhage. No subdural or epidural hematoma. No subarachnoid hemorrhage. Basilar cisterns are normal Calvarial:No calvarial fracture. No lytic lesion Temporal bones are negative. No destructive lesions Soft tissue, orbits, sinuses:Orbits and visualized facial soft tissues and paranasal sinuses are negative IMPRESSION: 1. Mild ventriculomegaly and white matter abnormality as above 2. No intracranial hemorrhage. No acute or focal intra-axial abnormality The exam was performed using radiation dose optimization techniques including, but not limited to, automated exposure control, adjustment of the mA and/or kV according to patient size and use of iterative reconstruction technique. Interpreted and Authenticated by: All Cormier 11/16/22
[2022-11-16] MEDS: INSULIN GLARGINE, HUMAN 1 UNIT/0.01 ML SQ SCH (22:13)
[2022-11-17] MEDS: 0.9 % SODIUM CHLORIDE 10 ML SYRINGE IV SCH ×3 (06:03→22:29)
[2022-11-17 07:16] LABS: ALT/SGPT 62 U/L (<40); AST/SGOT 12 U/L (<32); Albumin 2.7 gm/dL (3.2-5.2); Alkaline Phosphatase 123 U/L (39-117); Bilirubin,Direct < 0.2 mg/dL (0-0.3); Bilirubin,Total < 0.2 mg/dL (0.1-1.0); Blood Urea Nitrogen 21 mg/dL (6-20); Carbon Dioxide 26 mmol/L (22-30); Chloride 104 mmol/L (96-108); Globulin 2.7 gm/dL (2.2-3.7); Glomerular Filtration Rate 54; Glucose 138 mg/dL (70-105); Lactate Dehydrogenase 211 U/L (135-225); Phosphorous 2.2 mg/dL (2.5-4.5); Triglycerides 237 mg/dL (<150)
[2022-11-17] MEDS: INSULIN LISPRO 1 UNIT/0.01 ML UNIT SQ SCH ×4 (07:40→22:07)
[2022-11-17] MEDS: CALCITRIOL 0.25 MCG CAPSULE PO SCH (08:02)
[2022-11-17] MEDS: DOCUSATE SODIUM 100 MG CAPSULE PO SCH ×2 (08:02→22:09)
[2022-11-17] MEDS: FAMOTIDINE 20 MG TABLET PO SCH ×2 (08:02→22:10)
[2022-11-17] MEDS: PANTOPRAZOLE 40 MG TABLET PO SCH (08:03)
[2022-11-17] MEDS: APIXABAN 5 MG TABLET PO SCH ×2 (08:03→22:09)
[2022-11-17] MEDS: DULoxetine 30 MG CAPSULE PO SCH ×2 (08:03→22:20)
[2022-11-17] MEDS: LEVOTHYROXINE 100 MCG TABLET PO SCH (08:03)
[2022-11-17] MEDS: CALCIUM (OYSTER SHELL) 500 MG TABLET PO SCH ×2 (08:03→22:09)
[2022-11-17] MEDS: predniSONE 20 MG TABLET PO SCH (08:04)
[2022-11-17] MEDS: POTASSIUM CHLORIDE 20 MEQ TABLET PO SCH ×2 (08:04→17:25)
[2022-11-17] MEDS: MAGNESIUM OXIDE 400 MG TABLET PO SCH (08:04)
[2022-11-17] MEDS: ACETAMINOPHEN 325 MG TABLET PO PRN ×2 (08:04→15:56)
--- NOTE | 2022-11-17 08:05 | Internal Med Progress Note ---
SUBJECTIVE Subjective Patient information: Note initiated : 11/17/22 at 8:02 am Service Date, if different from initiated Date: [] Patient: Dayanna Guo a 61 y/o F admitted on 11/13/22 for weakness. Chief Complaint: [] Interval history: Ms. Guo is a 61 year old F history of myasthenia gravis, hypothyroidism, type 2 diabetes mellitus, status post urostomy placement, presenting with 3-day history of leg cramps, nausea, vomiting, diaphoresis, dysuria. Patient has a history of frequent urinary tract infections. Vital signs at ED presentations significant for tachycardia heart rate in the 1 teens beats per minutes. Labs significant for leukocytosis with WBC 19.2. Serum lactic acid 3.4. Potassium level 5.4. BUN/creatinine 52, 1.4, respectively. UA suggesting the presence of urinary tract infection. Admission request was called for urinary tract infections with clinical sepsis. 2/: Afebrile overnight. WBC 18.0. Blood and urine cultures no growth to date. Patient has been lethargic. Increase Prednisone from 20 to 40mg PO daily, stress dose. Continue Rocephin and NS@100cc/hr while monitoring culture results. Pending physical therapy evaluation and treatment for placement planning. 2/2: Patient more awake and alert, although she is still c/o general body weakness and confusion. Serum sodium 125-->135. Potassium 3.3. WBC 18.0-->12.1. Urine culture E coli; blood culture no growth to date. Prednisone 40mg PO daily day 2/3. Saline lock. Potassium chloride PO replacement. BMP at 3pm. Amlodipine for better blood pressure control. Toradol IV PRN back pain. Pending physical therapy evaluation and treatment for placement planning. 2/3 Patient states she feels feels worse today. She says she feels dizzy. She feels sleepy and at times having difficulty expressing herself. feels weak. Leukocytosis improved. Vital signs stable. Sodium better and acid base improving. 2/4 Patient has occasional visual hallucinations when she is almost asleep. Still tired but she seems to be a little more alert than she was yesterday. We will hold her gabapentin for now. Acidosis improved. Physical therapy was able to get her to the bedside and stand momentarily. Still very weak. Review of Systems: Has headache. Denies fever/chills/nausea/vomiting/chest or abdominal pain/cough/dyspnea/diarrhea. Otherwise see above. Constitutional Vitals: Vital Signs Temp Pulse Resp BP Pulse Ox O2 Del Method O2 Flow Rate 97.8 F 66 13 140/70 98 Nasal Cannula 1 11/17/22 04:02 11/17/22 06:01 11/17/22 06:01 11/17/22 06:01 11/17/22 06:01 11/17/22 06:10 11/17/22 06:10 Period Temp Pulse Resp BP Sys/Archuleta Pulse Ox O2 Del Method O2 Flow Rate Last 24 Hr 97.7 F-98.8 F 65-87 12-26 106-152/61-92 92-100 Nasal Cannula- Room Air 1-1 Intake and Output 11/16/22 11/17/22 11/17/22 19:59 03:59 11:59 Intake Total 400 480 350 Output Total 705 002 2013 Balance -275 205 -1150 Weight 124.284 kg 118.025 kg Intake & Output: Intake & Output 11/16/22 11/17/22 11/17/22 19:59 03:59 11:59 Intake Total 400 480 350 Output Total 582 027 9050 Balance -275 205 -1150 Weight 124.284 kg 118.025 kg Intake: Oral 400 480 350 Output: Urine Catheter Amount 50 1175 Void Amount 475 Stool 150 275 325 Other: Meal Lunch Dinner Percent of Meal Consumed 100% 100% Feeding Ability Total Assistance Urine Appearance Clear Clear Uretheral (Martinez) Clear Clear Urine Color Dark Yellow Dark Yellow Uretheral (Martinez) Yellow Bright Yellow Urine Odor Normal Normal Stool Size Large Stool Color Brown Brown Yellow Green Stool Consistency Loose Exam: General: Awake, No acute Distress, obese Eyes/N/T: EOMI, Head/Neck: neck supple, CV: RRR, No murmurs, normal s1/s2 Pulm: Clear b/l, no wheezing/rhonchi/rales Abd: soft, nontender, +BS x4, ostomy Ext: no clubbing/cyanosis/edema Neuro: Awake but drowsy but not as much as yesterday, no focal deficits, moves all extremities, Skin: warm/dry OBJ DATA Labs 11/15/22 05:13 11/17/22 05:20 Labs: Abnormal Lab Results 11/17/22 11/16/22 11/15/22 05:20 05:40 17:54 WBC Hct MCHC RDW Immature Gran % (Auto) Neut % (Auto) Lymph % (Auto) Lymph # (Auto) [place] # (Auto) Immature Gran # Absolute Neutrophils Sodium 132 L Carbon Dioxide 18 L 14 L Anion Gap 7.0 L 17.0 H BUN 21 H Creatinine 1.2 H Glucose 138 H 144 H 220 H Hemoglobin A1c Calcium 8.3 L 8.2 L Phosphorus 2.2 L 2.3 L AST ALT 62 H 75 H Alkaline Phosphatase 123 H 140 H Lactate Dehydrogenase 273 H Total Protein 5.4 L 5.5 L Albumin 2.7 L 2.7 L Globulin Albumin/Globulin Ratio Triglycerides 237 H 238 H 11/15/22 11/15/22 11/14/22 05:13 05:13 08:10 WBC 12.1 H Hct MCHC RDW 15.2 H Immature Gran % (Auto) 2.5 H Neut % (Auto) 83.0 H Lymph % (Auto) 8.2 L Lymph # (Auto) 0.99 L [place] # (Auto) Immature Gran # 0.30 H Absolute Neutrophils 9.99 H Sodium 125 L Carbon Dioxide 13 L 9 L* Anion Gap 17.0 H 18.0 H BUN 22 H 40 H Creatinine 1.4 H Glucose 157 H 202 H Hemoglobin A1c 8.2 H Calcium 7.7 L 7.2 L Phosphorus AST 34 H ALT 86 H 136 H Alkaline Phosphatase 153 H 179 H Lactate Dehydrogenase Total Protein Albumin 2.8 L 3.0 L Globulin 4.0 H Albumin/Globulin Ratio 0.8 L 0.8 L Triglycerides 11/14/22 05:29 WBC 18.0 H Hct 47.2 H MCHC 30.7 L RDW 15.6 H Immature Gran % (Auto) 2.5 H Neut % (Auto) Lymph % (Auto) Lymph # (Auto) [place] # (Auto) 1.52 H Immature Gran # 0.45 H Absolute Neutrophils 12.80 H Sodium Carbon Dioxide Anion Gap BUN Creatinine Glucose Hemoglobin A1c Calcium Phosphorus AST ALT Alkaline Phosphatase Lactate Dehydrogenase Total Protein Albumin Globulin Albumin/Globulin Ratio Triglycerides Meds: Medications Acetaminophen (Acetaminophen 325 Mg Tablet) 650 mg PO Q6HP PRN; Protocol PRN Reason: Per Pain Protocol/Fever > 101 Last Admin: 11/16/22 17:11 Dose: 650 mg Albuterol/Ipratropium (Ipratropium/Albuterol 3 Ml Ampul.Neb) 3 ml NEB Q4HRT PRN PRN Reason: Wheezing Amlodipine Besylate (Amlodipine 10 Mg Tablet) 10 mg PO DAILY [facility] Last Admin: 11/16/22 08:31 Dose: 10 mg Apixaban (Apixaban 5 Mg Tablet) 5 mg PO BID [facility] Last Admin: 11/16/22 22:11 Dose: 5 mg Baclofen (Baclofen 10 Mg Tablet) 10 mg PO TID [facility] Last Admin: 11/16/22 22:12 Dose: 10 mg Calcitriol (Calcitriol 0.25 Mcg Capsule) 0.25 mcg PO TuThSa@0900 [facility] Last Admin: 11/15/22 08:52 Dose: 0.25 mcg Calcium Carbonate/Glycine (Calcium (Oyster Shell) 500 Mg Tablet) 1,000 mg PO BID [facility] Last Admin: 11/16/22 22:11 Dose: 1,000 mg Ceftriaxone Sodium (Ceftriaxone 1 Gm Vial) 1 gm IV Q24H [facility] Last Admin: 11/16/22 08:41 Dose: 1 gm Dextrose (Dextrose 50% 50 Ml Vial) 0 ml IV UD PRN PRN Reason: Per Sliding Scale Diagnostic Test (Pha) (Accu-Chek 1 Each Strip) 1 each FS ACHS [facility] Last Admin: 11/17/22 07:39 Dose: 1 each Docusate Sodium (Docusate Sodium 100 Mg Capsule) 100 mg PO BID [facility] Last Admin: 11/16/22 22:10 Dose: 100 mg Duloxetine HCl (Duloxetine 30 Mg Capsule) 30 mg PO BID [facility] Last Admin: 11/16/22 22:12 Dose: 30 mg Famotidine (Famotidine 20 Mg Tablet) 20 mg PO BID [facility] Last Admin: 11/16/22 22:11 Dose: 20 mg Gabapentin (Gabapentin 300 Mg Capsule) 300 mg PO QID [facility] Last Admin: 11/16/22 22:16 Dose: Not Given Glucose (Dextrose 31 Gm Oral.Susp) 15 gm PO PRN PRN PRN Reason: Hypoglycemia Insulin Glargine (Insulin Glargine, Human 1 Unit/0.01 Ml) 23 unit SQ HS [facility] Last Admin: 11/16/22 22:13 Dose: 23 units Insulin Human Lispro (Insulin Lispro 1 Unit/0.01 Ml Unit) 0 unit SQ ACHS [facility]; Protocol Last Admin: 11/17/22 07:40 Dose: Not Given Ketorolac Tromethamine (Ketorolac 15 Mg/Ml Vial) 15 mg IV Q6HP PRN PRN Reason: Pain Last Admin: 11/15/22 14:30 Dose: 15 mg Lactulose (Lactulose 20 Gm/30 Ml Oral.[place]) 10 gm PO DAILYP PRN PRN Reason: Constipation Levothyroxine Sodium (Levothyroxine 100 Mcg Tablet) 200 mcg PO ACB [facility] Last Admin: 11/16/22 07:33 Dose: 200 mcg Magnesium Oxide (Magnesium Oxide 400 Mg Tablet) 800 mg PO DAILY [facility] Last Admin: 11/16/22 08:30 Dose: 800 mg Methocarbamol (Methocarbamol 1,000 Mg/10 Ml Vial) 1,000 mg IV Q8HP PRN PRN Reason: Muscle Spasm Last Admin: 11/15/22 11:23 Dose: 1,000 mg Nystatin (Nystatin Powder Bottle 15gm) 1 dose TOPICAL BID [facility] Last Admin: 11/16/22 22:17 Dose: 1 dose Ondansetron HCl (Ondansetron 4 Mg/2 Ml Vial) 4 mg IV Q4HP PRN; Protocol PRN Reason: Nausea And Vomiting Last Admin: 11/16/22 08:41 Dose: 4 mg Pantoprazole Sodium (Pantoprazole 40 Mg Tablet) 40 mg PO QAMAC [facility] Last Admin: 11/16/22 07:29 Dose: 40 mg Potassium Chloride (Potassium Chloride 20 Meq Tablet) 20 meq PO BIDCC [facility] Last Admin: 11/16/22 17:10 Dose: 20 meq Prednisone (Pred[facility]one 20 Mg Tablet) [facility] Pyridostigmine [place] (Pyridostigmine 60 Mg Tablet) 60 mg PO QID [facility] Last Admin: 11/16/22 22:13 Dose: 60 mg Senna (Sennosides 1 Tablet) 2 tab PO HSP PRN PRN Reason: Constipation Sodium Chloride (0.9 % Sodium Chloride 10 Ml Syringe) 10 ml IV Q8 [facility] Last Admin: 11/17/22 06:03 Dose: 10 ml A/P Narrative A/P Narrative: Assessment and Plans: *UTI(E.coli) w/severe sepsis: -Procalcitonin mildly elevated -Blood culture, no growth to date, Urine culture, no growth to date -cbc w/ auto diff in the morning to trend WBC -Rocephin *T2DM w/neuropathy: -HgA1c 8.2 -Hold oral hypoglycemics, -Insulin Lantus 23 unit HS, SSI *h/o Myasthenia Gravis: on chronic prednisone and Pyridostigmine. Monitor -cont home Prednisone/Pyridostigmine *Encephalopathy/Delerium (intermittent confusion, drowsiness): confusion worse at night. ?poor sleep -CT brain no acute pathology, ?mild ventriculomegaly -monitor myasthenia gravis -hold gabapentin today and decrease for tomorrow *THANIA on CKDIII: improved -Avoid nephrotoxic agents -CMP in the morning to trend kidney functions *Metabolic acidosis: improved *Hypokalemia/Hyponatremia/Hypophos: improving -replace prn and trend, check mag *Hypothyroidism: Continue thyroid replacement therapy . tsh wnl *Anemia, chronic: *Generalized weakness/deconditioning: -Physical therapy evaluation and treatment *History of recurrent SBO's: follows with Dr. Currie *Obesity: BMI 43 *h/o Multifocal PE: continuing apixaban *GERD: ppi *Transaminitis: improving *ppx: Eliquis Time Spent With Patient Time: Total time spent is greater than 50% in coordination of care (as documented) at patient's floor/unit and/or counseling patient: Subsequent: Total time with patient: 50 - 65 Minutes
[2022-11-17] MEDS: PYRIDOSTIGMINE 60 MG TABLET PO SCH ×4 (08:06→22:20)
[2022-11-17] MEDS: amLODIPine 10 MG TABLET PO SCH (08:06)
[2022-11-17] MEDS: NYSTATIN POWDER BOTTLE 15GM TOPICAL SCH ×2 (08:06→22:33)
[2022-11-17] MEDS: cefTRIAXone 1 GM VIAL IV SCH (08:10)
[2022-11-17] MEDS: ONDANSETRON 4 MG/2 ML VIAL IV PRN (08:11)
[2022-11-17] MEDS: BACLOFEN 10 MG TABLET PO SCH ×3 (08:47→22:11)
[2022-11-17] MEDS: PHOSPHORUS 250 MG TABLET PO SCH ×2 (08:47→15:56)
[2022-11-17] MEDS ORDERED: methylPREDNISolone SOD SUCC 125 MG/2 ML VIAL IV ONE (10:47)
[2022-11-17] MEDS: INSULIN GLARGINE, HUMAN 1 UNIT/0.01 ML SQ SCH (22:06)
[2022-11-17] MEDS: MELATONIN 3 MG TABLET PO SCH (22:10)
[2022-11-17] MEDS: METHOCARBAMOL 1,000 MG/10 ML VIAL IV PRN (22:11)
[2022-11-18] MEDS: 0.9 % SODIUM CHLORIDE 10 ML SYRINGE IV SCH ×3 (06:18→22:02)
[2022-11-18] MEDS: PHOSPHORUS 250 MG TABLET PO SCH ×5 (06:37→22:07)
[2022-11-18 07:17] LABS: ALT/SGPT 57 U/L (<40); AST/SGOT 18 U/L (<32); Albumin 2.7 gm/dL (3.2-5.2); Alkaline Phosphatase 116 U/L (39-117); Bilirubin,Direct < 0.2 mg/dL (0-0.3); Bilirubin,Total 0.2 mg/dL (0.1-1.0); Blood Urea Nitrogen 30 mg/dL (6-20); Carbon Dioxide 29 mmol/L (22-30); Chloride 99 mmol/L (96-108); Globulin 2.8 gm/dL (2.2-3.7); Glomerular Filtration Rate 61; Glucose 123 mg/dL (70-105); Lactate Dehydrogenase 220 U/L (135-225); Triglycerides 284 mg/dL (<150); Uric Acid 4.2 mg/dL (2.5-8.0)
--- NOTE | 2022-11-18 08:04 | Internal Med Progress Note ---
SUBJECTIVE Subjective Patient information: Note initiated : 11/18/22 at 7:59 am Service Date, if different from initiated Date: [] Patient: Dayanna Guo a 61 y/o F admitted on 11/13/22 for weakness. Chief Complaint: [] Interval history: Ms. uGo is a 61 year old F history of myasthenia gravis, hypothyroidism, type 2 diabetes mellitus, status post urostomy placement, presenting with 3-day history of leg cramps, nausea, vomiting, diaphoresis, dysuria. Patient has a history of frequent urinary tract infections. Vital signs at ED presentations significant for tachycardia heart rate in the 1 teens beats per minutes. Labs significant for leukocytosis with WBC 19.2. Serum lactic acid 3.4. Potassium level 5.4. BUN/creatinine 52, 1.4, respectively. UA suggesting the presence of urinary tract infection. Admission request was called for urinary tract infections with clinical sepsis. 2/: Afebrile overnight. WBC 18.0. Blood and urine cultures no growth to date. Patient has been lethargic. Increase Prednisone from 20 to 40mg PO daily, stress dose. Continue Rocephin and NS@100cc/hr while monitoring culture results. Pending physical therapy evaluation and treatment for placement planning. 2/2: Patient more awake and alert, although she is still c/o general body weakness and confusion. Serum sodium 125-->135. Potassium 3.3. WBC 18.0-->12.1. Urine culture E coli; blood culture no growth to date. Prednisone 40mg PO daily day 2/3. Saline lock. Potassium chloride PO replacement. BMP at 3pm. Amlodipine for better blood pressure control. Toradol IV PRN back pain. Pending physical therapy evaluation and treatment for placement planning. 2/3 Patient states she feels feels worse today. She says she feels dizzy. She feels sleepy and at times having difficulty expressing herself. feels weak. Leukocytosis improved. Vital signs stable. Sodium better and acid base improving. 2/ Patient has occasional visual hallucinations when she is almost asleep. Still tired but she seems to be a little more alert than she was yesterday. We will hold her gabapentin for now. Acidosis improved. Physical therapy was able to get her to the bedside and stand momentarily. Still very weak. 11/18 Patient's states she had poor sleep last night. Otherwise her mentation seems to be a bit better, more clear. Does have a mild headache on the right. She feels a little puffy. Acid-base improved. Review of Systems: Has headache. Denies fever/chills/nausea/vomiting/chest or abdominal pain/cough/dyspnea/diarrhea. Otherwise see above. Constitutional Vitals: Vital Signs Temp Pulse Resp BP Pulse Ox O2 Del Method O2 Flow Rate 97.8 F 74 11 L 136/81 100 Room Air 1 11/18/22 04:01 11/18/22 06:01 11/18/22 06:01 11/18/22 06:01 11/18/22 06:01 11/18/22 04:01 11/17/22 14:00 Period Temp Pulse Resp BP Sys/Archuleta Pulse Ox O2 Del Method O2 Flow Rate Last 24 Hr 97.4 F-98.2 F 69-92 10-21 119-147/70-87 91-100 Nasal Cannula- Room Air 1-1 Intake and Output 11/17/22 11/18/22 11/18/22 19:59 03:59 11:59 Intake Total 850 1340 Output Total 975 1550 500 Balance -125 -210 -500 Weight 119.249 kg Intake & Output: Intake & Output 11/17/22 11/18/22 11/18/22 19:59 03:59 11:59 Intake Total 850 1340 Output Total 975 1550 500 Balance -125 -210 -500 Weight 119.249 kg Intake: Oral 850 1340 Output: Urine Catheter Amount 575 900 Stool 400 650 500 Other: Meal Dinner Percent of Meal Consumed 100% Feeding Ability Total Assistance Urine Appearance Clear Clear Uretheral (Martinez) Clear Clear Urine Color Dark Yellow Yellow Uretheral (Martinez) Yellow Yellow Urine Odor Normal Normal Stool Size Large Large Stool Color Brown Brown Yellow Yellow Stool Consistency Liquid Loose Liquid Exam: General: Awake, No acute Distress, obese Eyes/N/T: EOMI, Head/Neck: neck supple, CV: RRR, No murmurs, normal s1/s2 Pulm: Clear b/l, no wheezing/rhonchi/rales Abd: soft, nontender, +BS x4, ostomy Ext: no clubbing/cyanosis/edema Neuro: Awake day and less drowsy, no focal deficits, moves all extremities, Skin: warm/dry OBJ DATA Labs 11/15/22 05:13 11/18/22 05:10 Labs: Abnormal Lab Results 11/18/22 11/17/22 11/16/22 05:10 05:20 05:40 Sodium Carbon Dioxide 18 L Anion Gap 7.0 L 7.0 L BUN 30 H 21 H Creatinine Glucose 123 H 138 H 144 H Calcium 8.3 L Phosphorus 2.0 L 2.2 L 2.3 L ALT 57 H 62 H 75 H Alkaline Phosphatase 123 H 140 H Lactate Dehydrogenase 273 H Total Protein 5.5 L 5.4 L 5.5 L Albumin 2.7 L 2.7 L 2.7 L Triglycerides 284 H 237 H 238 H 11/15/22 17:54 Sodium 132 L Carbon Dioxide 14 L Anion Gap 17.0 H BUN Creatinine 1.2 H Glucose 220 H Calcium 8.2 L Phosphorus ALT Alkaline Phosphatase Lactate Dehydrogenase Total Protein Albumin Triglycerides Meds: Medications Acetaminophen (Acetaminophen 325 Mg Tablet) 650 mg PO Q6HP PRN; Protocol PRN Reason: Per Pain Protocol/Fever > 101 Last Admin: 11/17/22 15:56 Dose: 650 mg Albuterol/Ipratropium (Ipratropium/Albuterol 3 Ml Ampul.Neb) 3 ml NEB Q4HRT PRN PRN Reason: Wheezing Amlodipine Besylate (Amlodipine 10 Mg Tablet) 10 mg PO DAILY [facility] Last Admin: 11/17/22 08:06 Dose: 10 mg Apixaban (Apixaban 5 Mg Tablet) 5 mg PO BID [facility] Last Admin: 11/17/22 22:09 Dose: 5 mg Baclofen (Baclofen 10 Mg Tablet) 10 mg PO TID [facility] Last Admin: 11/17/22 22:11 Dose: Not Given Calcitriol (Calcitriol 0.25 Mcg Capsule) 0.25 mcg PO TuThSa@0900 [facility] Last Admin: 11/17/22 08:02 Dose: 0.25 mcg Calcium Carbonate/Glycine (Calcium (Oyster Shell) 500 Mg Tablet) 1,000 mg PO BID [facility] Last Admin: 11/17/22 22:09 Dose: 1,000 mg Ceftriaxone Sodium (Ceftriaxone 1 Gm Vial) 1 gm IV Q24H [facility] Last Admin: 11/17/22 08:10 Dose: 1 gm Dextrose (Dextrose 50% 50 Ml Vial) 0 ml IV UD PRN PRN Reason: Per Sliding Scale Diagnostic Test (Pha) (Accu-Chek 1 Each Strip) 1 each FS [facility] Last Admin: 11/17/22 22:06 Dose: 1 each Docusate Sodium (Docusate Sodium 100 Mg Capsule) 100 mg PO BID [facility] Last Admin: 11/17/22 22:09 Dose: 100 mg Duloxetine HCl (Duloxetine 30 Mg Capsule) 30 mg PO BID [facility] Last Admin: 11/17/22 22:20 Dose: 30 mg Famotidine (Famotidine 20 Mg Tablet) 20 mg PO BID [facility] Last Admin: 11/17/22 22:10 Dose: 20 mg Gabapentin (Gabapentin 300 Mg Capsule) 300 mg PO QHS [facility] Glucose (Dextrose 31 Gm Oral.Susp) 15 gm PO PRN PRN PRN Reason: Hypoglycemia Insulin Glargine (Insulin Glargine, Human 1 Unit/0.01 Ml) 23 unit SQ [facility] Last Admin: 11/17/22 22:06 Dose: 23 units Insulin Human Lispro (Insulin Lispro 1 Unit/0.01 Ml Unit) 0 unit SQ [facility]; Protocol Last Admin: 11/17/22 22:07 Dose: 9 units Ketorolac Tromethamine (Ketorolac 15 Mg/Ml Vial) 15 mg IV Q6HP PRN PRN Reason: Pain Last Admin: 11/15/22 14:30 Dose: 15 mg Lactulose (Lactulose 20 Gm/30 Ml Oral.[place]) 10 gm PO DAILYP PRN PRN Reason: Constipation Levothyroxine Sodium (Levothyroxine 100 Mcg Tablet) 200 mcg PO ACB [facility] Last Admin: 11/17/22 08:03 Dose: 200 mcg Magnesium Oxide (Magnesium Oxide 400 Mg Tablet) 800 mg PO DAILY [facility] Last Admin: 11/17/22 08:04 Dose: 800 mg Melatonin (Melatonin 3 Mg Tablet) 3 mg PO QHS [facility] Last Admin: 11/17/22 22:10 Dose: Not Given Methocarbamol (Methocarbamol 1,000 Mg/10 Ml Vial) 1,000 mg IV Q8HP PRN PRN Reason: Muscle Spasm Last Admin: 11/17/22 22:11 Dose: 1,000 mg Nystatin (Nystatin Powder Bottle 15gm) 1 dose TOPICAL BID [facility] Last Admin: 11/17/22 22:33 Dose: 1 dose Ondansetron HCl (Ondansetron 4 Mg/2 Ml Vial) 4 mg IV Q4HP PRN; Protocol PRN Reason: Nausea And Vomiting Last Admin: 11/17/22 08:11 Dose: 4 mg Pantoprazole Sodium ([facility] 40 Mg [facility]t) [facility] Last Admin: 11/17/22 08:03 Dose: 40 mg Potassium Chloride (Potassium Chloride 20 Meq Tablet) 20 meq PO BIDCC [facility] Last Admin: 11/17/22 17:25 Dose: 20 meq Prednis[facility] ([facility] Mg Tablet) [facility] Last Admin: 11/17/22 08:04 Dose: 20 mg Pyridostigmine [place] (Pyridostigmine 60 Mg Tablet) 60 mg PO QID [facility] Last Admin: 11/17/22 22:20 Dose: 60 mg Senna (Sennosides 1 Tablet) 2 tab PO HSP PRN PRN Reason: Constipation Sodium Chloride (0.9 % Sodium Chloride 10 Ml Syringe) 10 ml IV Q8 [facility] Last Admin: 11/18/22 06:18 Dose: 10 ml A/P Narrative A/P Narrative: Assessment and Plans: *UTI(E.coli) w/severe sepsis: -Procalcitonin mildly elevated -Blood culture, no growth to date, Urine culture, no growth to date -cbc w/ auto diff in the morning to trend WBC -Rocephin *T2DM w/neuropathy: -HgA1c 8.2 -Hold oral hypoglycemics, -Insulin Lantus 23 unit HS, SSI *h/o Myasthenia Gravis: on chronic prednisone and Pyridostigmine. Monitor -cont home Prednisone/Pyridostigmine *Encephalopathy/Delerium (intermittent confusion, drowsiness): confusion worse at night. poor sleep -CT brain no acute pathology, ?mild ventriculomegaly -monitor myasthenia gravis -restart gabapentin qhs *THANIA on CKDIII: improved -Avoid nephrotoxic agents -CMP in the morning to trend kidney functions *Metabolic acidosis: improved *Hypokalemia/Hyponatremia/Hypophos: -replace prn and trend, *Hypothyroidism: Continue thyroid replacement therapy . tsh wnl *Anemia, chronic: *Generalized weakness/deconditioning: -Physical therapy evaluation and treatment *History of recurrent SBO's: follows with Dr. Currie *Obesity: BMI 43 *h/o Multifocal PE: continuing apixaban *GERD: ppi *Transaminitis: improving *ppx: Eliquis Time Spent With Patient Time: Total time spent is greater than 50% in coordination of care (as documented) at patient's floor/unit and/or counseling patient: Subsequent: Total time with patient: 50 - 65 Minutes
[2022-11-18] MEDS: PANTOPRAZOLE 40 MG TABLET PO SCH (08:29)
[2022-11-18] MEDS: INSULIN LISPRO 1 UNIT/0.01 ML UNIT SQ SCH ×4 (08:29→22:19)
[2022-11-18] MEDS: LEVOTHYROXINE 100 MCG TABLET PO SCH (08:30)
[2022-11-18] MEDS: predniSONE 20 MG TABLET PO SCH (08:30)
[2022-11-18] MEDS: MAGNESIUM OXIDE 400 MG TABLET PO SCH (08:30)
[2022-11-18] MEDS: BACLOFEN 10 MG TABLET PO SCH ×4 (08:31→21:55)
[2022-11-18] MEDS: amLODIPine 10 MG TABLET PO SCH (08:31)
[2022-11-18] MEDS: APIXABAN 5 MG TABLET PO SCH ×2 (08:31→21:58)
[2022-11-18] MEDS: CALCIUM (OYSTER SHELL) 500 MG TABLET PO SCH ×2 (08:31→21:58)
[2022-11-18] MEDS: FAMOTIDINE 20 MG TABLET PO SCH ×2 (08:31→21:58)
[2022-11-18] MEDS: DOCUSATE SODIUM 100 MG CAPSULE PO SCH ×2 (08:31→21:55)
[2022-11-18] MEDS: POTASSIUM CHLORIDE 20 MEQ TABLET PO SCH ×2 (08:31→16:54)
[2022-11-18] MEDS: DULoxetine 30 MG CAPSULE PO SCH ×2 (08:31→22:06)
[2022-11-18] MEDS: ACETAMINOPHEN 325 MG TABLET PO PRN ×2 (08:32→15:15)
[2022-11-18] MEDS: NYSTATIN POWDER BOTTLE 15GM TOPICAL SCH ×2 (08:36→22:01)
[2022-11-18] MEDS: PYRIDOSTIGMINE 60 MG TABLET PO SCH ×4 (08:36→22:01)
[2022-11-18] MEDS: cefTRIAXone 1 GM VIAL IV SCH (08:37)
[2022-11-18] MEDS ORDERED: FUROSEMIDE 40 MG/4 ML VIAL IV ONE (10:25)
[2022-11-18] MEDS ORDERED: ALBUMIN HUMAN 12.5 GM/50 ML VIAL IV ONE (10:25)
[2022-11-18] MEDS ORDERED: methylPREDNISolone SOD SUCC 40 MG/ML VIAL IV ONE (10:26)
--- NOTE | 2022-11-18 11:10 | Discharge Summary ---
Discharge Provider Provider IMPORTANT FOLLOW-UP INFORMATION FOR PCP: Patient information: Note initiated : 11/18/22 at 11:08 am Service Date, if different from initiated Date: [] Patient: Dayanna Guo a 61 y/o F admitted on 11/13/22 for weakness. Chief Complaint: [] Date of admission: 11/13/22 02:54 Discharge date: 11/20/22 Primary care physician: Mookie Paiz MD Consults: 11/13/22 Consult to Physician [CONS] Stat Comment: Consulting Provider: Jt Spring Reason For Exam: Physician to Consult COURSE Hospital Course Hospital course: Interval history: Ms. Guo is a 61 year old F history of myasthenia gravis, hypothyroidism, type 2 diabetes mellitus, status post urostomy placement, presenting with 3-day history of leg cramps, nausea, vomiting, diaphoresis, dysuria. Patient has a history of frequent urinary tract infections. Vital signs at ED presentations significant for tachycardia heart rate in the 1 teens beats per minutes. Labs significant for leukocytosis with WBC 19.2. Serum lactic acid 3.4. Potassium level 5.4. BUN/creatinine 52, 1.4, respectively. UA suggesting the presence of urinary tract infection. Admission request was called for urinary tract infections with clinical sepsis. 2/1: Afebrile overnight. WBC 18.0. Blood and urine cultures no growth to date. Patient has been lethargic. Increase Prednisone from 20 to 40mg PO daily, stress dose. Continue Rocephin and NS@100cc/hr while monitoring culture results. Pending physical therapy evaluation and treatment for placement planning. 2/2: Patient more awake and alert, although she is still c/o general body weakness and confusion. Serum sodium 125-->135. Potassium 3.3. WBC 18.0-->12.1. Urine culture E coli; blood culture no growth to date. Prednisone 40mg PO daily day 2/3. Saline lock. Potassium chloride PO replacement. BMP at 3pm. Amlodipine for better blood pressure control. Toradol IV PRN back pain. Pending physical therapy evaluation and treatment for placement planning. 2/3 Patient states she feels feels worse today. She says she feels dizzy. She feels sleepy and at times having difficulty expressing herself. feels weak. Leukocytosis improved. Vital signs stable. Sodium better and acid base improving. 2/ Patient has occasional visual hallucinations when she is almost asleep. Still tired but she seems to be a little more alert than she was yesterday. We will hold her gabapentin for now. Acidosis improved. Physical therapy was able to get her to the bedside and stand momentarily. Still very weak. 2/ Patient's states she had poor sleep last night. Otherwise her mentation seems to be a bit better, more clear. Does have a mild headache on the right. She feels a little puffy. Acid-base improved. 2 Patient states she slept well last night and does feel better today. Mentation continues to improve. She says she does have restless legs at times. 11/20 Feeling much better today. Better sleep. Awaiting follow-up chemistry. Paulina iting PT eval and placement needs. Patient extremely high risk for readmission given comorbidities and multiple hospitalizations Assessment and Plans: *UTI(E.coli) w/severe sepsis: *T2DM w/neuropathy: -HgA1c 8.2 *h/o Myasthenia Gravis: on chronic prednisone and Pyridostigmine. *Encephalopathy/Delerium (intermittent confusion, drowsiness): *THANIA on CKDIII: improved *Metabolic acidosis: improved *Hypokalemia/Hyponatremia/Hypophos: *Hypothyroidism: *Anemia, chronic: *Generalized weakness/deconditioning: *History of recurrent SBO's: follows with Dr. Currie *Obesity: BMI 43 *h/o Multifocal PE: continuing apixaban *GERD: ppi *Transaminitis: improving *ppx: Eliquis Discharge diagnosis: UTI sepsis myasthenia gravis encephalopathy delirium Secondary discharge diagnosis: THANIA on CKD metabolic acidosis electrolyte disturbance hypothyroidism anemia generalized weakness obesity GERD Time Spent with Patient Time attestation: Total time spent providing and/or coordinating discharge services: Time spent: Greater than 30 minutes EXAM Constitutional Vitals: Temp Pulse Resp BP Pulse Ox O2 Del Method O2 Flow Rate 97.6 F 106 H 22 120/78 95 Room Air 1 11/18/22 08:01 11/18/22 10:10 11/18/22 10:10 11/18/22 10:01 11/18/22 10:10 11/18/22 04:01 11/17/22 14:00 Discharge Data Data Completed and Pending Labs on day of discharge: Labs from last 24 hours 11/18/22 05:10 Sodium 135 Potassium 4.2 Chloride 99 Carbon Dioxide 29 Anion Gap 7.0 L BUN 30 H Creatinine 1.0 GFR Calculation 61 Glucose 123 H Uric Acid 4.2 Calcium 9.0 Phosphorus 2.0 L Magnesium 1.9 Total Bilirubin 0.2 Direct Bilirubin < 0.2 GGT 19 AST 18 ALT 57 H Alkaline Phosphatase 116 Lactate Dehydrogenase 220 Total Protein 5.5 L Albumin 2.7 L Globulin 2.8 Albumin/Globulin Ratio 1.0 Triglycerides 284 H Discharge Plan Patient/Caregiver Discharge Instructions Activity: increase activity as tolerated Diet: Consistent Carbohydrate Prescriptions: Continued Eliquis 5 mg tablet 5 mg PO BID Qty: 60 5RF (DME) insulin syringe-needle U-100 1 mL 32 gauge x 5/16" syringe See Rx Instructions .Route Qty: 100 0RF Rx Instructions: Use with Lantus BID (DME) pen needle, diabetic [BD Ultra-Fine Concepcion Pen Needle] 32 gauge x 5/32" needle See Rx Instructions .Route Qty: 200 5RF Rx Instructions: Use up to 6 injections per day pyridostigmine bromide 60 mg tablet 60 mg PO QID Qty: 120 5RF gabapentin 300 mg capsule 300 mg PO QID 30 Days Qty: 360 1RF duloxetine 30 mg capsule,delayed release(DR/EC) 30 mg PO BID Qty: 180 1RF insulin lispro [Humalog KwikPen Insulin] 100 unit/mL insulin pen 1 sliding scale dose subcut TID Qty: 45 1RF Rx Instructions: max per day 50 units calcitriol 0.25 mcg capsule See Rx Instructions .ROUTE .COMPLEX Qty: 15 6RF Dose Instruction: TAKE ONE CAPSULE BY MOUTH ON SATURDAY, SATURDAY AND SATURDAY FOR SUPPLEMENT Rx Instructions: TAKE ONE CAPSULE BY MOUTH ON SATURDAY, SATURDAY AND SATURDAY FOR SUPPLEMENT (DME) Contour Next Test Strips Strip See Rx Instructions .ROUTE .COMPLEX Qty: 300 3RF Dose Instruction: FOR DIABETES; USE 4 TIMES DAILY Rx Instructions: FOR DIABETES; USE 4 TIMES DAILY levothyroxine 200 mcg tablet 200 mcg PO QDAY Qty: 90 1RF pantoprazole 20 mg tablet,delayed release (DR/EC) 20 mg PO QDAY famotidine 20 mg tablet 20 mg PO BID prednisone 20 mg tablet 20 mg PO QAC Qty: 90 0RF baclofen 10 mg tablet 10 mg PO TID dulaglutide 1.5 mg/0.5 mL pen injector 1.5 mg subcut QWEEK Qty: 2 2RF calcium 1,000 mg PO BID magnesium 500 mg Tablet 1,000 mg PO QDAY insulin glargine [Lantus Solostar U-100 Insulin] 100 unit/mL (3 mL) insulin pen 23 unit subcut QPM Discontinued nitrofurantoin monohyd/m-cryst 100 mg capsule 100 mg PO Q12H 7 Days Qty: 14 0RF Rx Instructions: must administer with a meal/food cefdinir 300 mg capsule 300 mg PO BID Qty: 14 0RF doxycycline hyclate 100 mg capsule 100 mg PO BID Qty: 60 2RF Other Ambulatory Orders: OT Discharge Order (Routine) Location: None Selected Ordered By: Smith Vu Physical Therapy at Discharge - General (Routine) Location: None Selected Ordered By: Smith Vu Follow Up Plan Follow up with: Mookie Paiz MD [Primary Care Provider] - Patient Disposition: Xfer SNF Prognosis: Undetermined Rehab Potential: Fair I certify that the patient requires SNF services: Yes Overall status at discharge: patient is progressing back to baseline Discharge Orders: Discharge Order (Routine); Ordered 11/20/22 Ordered By: Smith Vu
[2022-11-18] MEDS: METHOCARBAMOL 1,000 MG/10 ML VIAL IV PRN (12:20)
[2022-11-18] MEDS ORDERED: TEMAZEPAM 15 MG CAPSULE PO PRN (21:00)
[2022-11-18] MEDS: diphenhydrAMINE 25 MG CAPSULE PO SCH (21:58)
[2022-11-18] MEDS: GABAPENTIN 300 MG CAPSULE PO SCH (21:59)
[2022-11-18] MEDS: MELATONIN 3 MG TABLET PO SCH (22:00)
[2022-11-18] MEDS: INSULIN GLARGINE, HUMAN 1 UNIT/0.01 ML SQ SCH (22:12)
[2022-11-19] MEDS: METHOCARBAMOL 1,000 MG/10 ML VIAL IV PRN (02:27)
[2022-11-19] MEDS: KETOROLAC 15 MG/ML VIAL IV PRN ×3 (02:27→16:48)
[2022-11-19] MEDS: 0.9 % SODIUM CHLORIDE 10 ML SYRINGE IV SCH ×4 (02:28→23:38)
--- NOTE | 2022-11-19 07:33 | Internal Med Progress Note ---
SUBJECTIVE Subjective Patient information: Note initiated : 11/19/22 at 7:31 am Service Date, if different from initiated Date: [] Patient: Dayanna Guo a 61 y/o F admitted on 11/13/22 for weakness. Chief Complaint: [] Interval history: Ms. Guo is a 61 year old F history of myasthenia gravis, hypothyroidism, type 2 diabetes mellitus, status post urostomy placement, presenting with 3-day history of leg cramps, nausea, vomiting, diaphoresis, dysuria. Patient has a history of frequent urinary tract infections. Vital signs at ED presentations significant for tachycardia heart rate in the 1 teens beats per minutes. Labs significant for leukocytosis with WBC 19.2. Serum lactic acid 3.4. Potassium level 5.4. BUN/creatinine 52, 1.4, respectively. UA suggesting the presence of urinary tract infection. Admission request was called for urinary tract infections with clinical sepsis. 2/: Afebrile overnight. WBC 18.0. Blood and urine cultures no growth to date. Patient has been lethargic. Increase Prednisone from 20 to 40mg PO daily, stress dose. Continue Rocephin and NS@100cc/hr while monitoring culture results. Pending physical therapy evaluation and treatment for placement planning. 2/2: Patient more awake and alert, although she is still c/o general body weakness and confusion. Serum sodium 125-->135. Potassium 3.3. WBC 18.0-->12.1. Urine culture E coli; blood culture no growth to date. Prednisone 40mg PO daily day 2/3. Saline lock. Potassium chloride PO replacement. BMP at 3pm. Amlodipine for better blood pressure control. Toradol IV PRN back pain. Pending physical therapy evaluation and treatment for placement planning. 2/3 Patient states she feels feels worse today. She says she feels dizzy. She feels sleepy and at times having difficulty expressing herself. feels weak. Leukocytosis improved. Vital signs stable. Sodium better and acid base improving. 2/ Patient has occasional visual hallucinations when she is almost asleep. Still tired but she seems to be a little more alert than she was yesterday. We will hold her gabapentin for now. Acidosis improved. Physical therapy was able to get her to the bedside and stand momentarily. Still very weak. 11/18 Patient's states she had poor sleep last night. Otherwise her mentation seems to be a bit better, more clear. Does have a mild headache on the right. She feels a little puffy. Acid-base improved. 11/19 Patient states she slept well last night and does feel better today. Mentation continues to improve. She says she does have restless legs at times. Review of Systems: Has headache. Denies fever/chills/nausea/vomiting/chest or abdominal pain/cough/dyspnea/diarrhea. Otherwise see above. Constitutional Vitals: Vital Signs Temp Pulse Resp BP Pulse Ox O2 Del Method O2 Flow Rate 97.4 F 92 H 16 136/75 97 Nasal Cannula 2 11/19/22 04:04 11/19/22 06:04 11/19/22 06:04 11/19/22 05:01 11/19/22 06:04 11/19/22 06:04 11/19/22 06:04 Period Temp Pulse Resp BP Sys/[place]uleta Pulse Ox O2 Del Method O2 Flow Rate Last 24 Hr 97.4 F-97.8 F 78-117 11-26 101-152/59-93 90-100 Nasal Cannula- Room Air 2-2 Intake and Output 11/18/22 11/19/22 11/19/22 19:59 03:59 11:59 Intake Total 1300 1060 Output Total 2300 1400 Balance -1000 -340 Weight 116.981 kg Intake & Output: Intake & Output 11/18/22 11/19/22 11/19/22 19:59 03:59 11:59 Intake Total 1300 1060 Output Total 2300 1400 Balance -1000 -340 Weight 116.981 kg Intake: Oral 1300 1060 Output: Urine Catheter Amount 1750 900 Stool 550 500 Other: Meal Dinner Percent of Meal Consumed 100% Feeding Ability Independent Urine Appearance Clear Clear Uretheral (Martinez) Clear Clear Urine Color Yellow Yellow Pale Uretheral (Martinez) Yellow Yellow Urine Odor Normal Normal Uretheral (Martinez) Normal Stool Size Moderate Stool Color Brown Brown Stool Consistency Soft Loose Loose Exam: General: Awake, No acute Distress, obese Eyes/N/T: EOMI, Head/Neck: neck supple, CV: RRR, No murmurs, normal s1/s2 Pulm: Clear b/l, no wheezing/rhonchi/rales Abd: soft, nontender, +BS x4, ostomy Ext: no clubbing/cyanosis/edema Neuro: Awake and alert. no focal deficits, moves all extremities, Skin: warm/dry OBJ DATA Labs 11/15/22 05:13 11/18/22 05:10 Labs: Abnormal Lab Results 11/18/22 11/17/22 11/16/22 05:10 05:20 05:40 Carbon Dioxide 18 L Anion Gap 7.0 L 7.0 L BUN 30 H 21 H Glucose 123 H 138 H 144 H Calcium 8.3 L Phosphorus 2.0 L 2.2 L 2.3 L ALT 57 H 62 H 75 H Alkaline Phosphatase 123 H 140 H Lactate Dehydrogenase 273 H Total Protein 5.5 L 5.4 L 5.5 L Albumin 2.7 L 2.7 L 2.7 L Triglycerides 284 H 237 H 238 H Meds: Medications Acetaminophen (Acetaminophen 325 Mg Tablet) 650 mg PO Q6HP PRN; Protocol PRN Reason: Per Pain Protocol/Fever > 101 Last Admin: 11/18/22 15:15 Dose: 650 mg Albuterol/Ipratropium (Ipratropium/Albuterol 3 Ml Ampul.Neb) 3 ml NEB Q4HRT PRN PRN Reason: Wheezing Amlodipine Besylate (Amlodipine 10 Mg Tablet) 10 mg PO DAILY [facility] Last Admin: 11/18/22 08:31 Dose: 10 mg Apixaban (Apixaban 5 Mg Tablet) 5 mg PO BID [facility] Last Admin: 11/18/22 21:58 Dose: 5 mg Baclofen (Baclofen 10 Mg Tablet) 10 mg PO TID [facility] Last Admin: 11/18/22 21:55 Dose: Not Given Calcitriol (Calcitriol 0.25 Mcg Capsule) 0.25 mcg PO TuThSa@0900 [facility] Last Admin: 11/17/22 08:02 Dose: 0.25 mcg Calcium Carbonate/Glycine (Calcium (Oyster Shell) 500 Mg Tablet) 1,000 mg PO BID [facility] Last Admin: 11/18/22 21:58 Dose: 1,000 mg Ceftriaxone Sodium (Ceftriaxone 1 Gm Vial) 1 gm IV Q24H [facility] Last Admin: 11/18/22 08:37 Dose: 1 gm Dextrose (Dextrose 50% 50 Ml Vial) 0 ml IV UD PRN PRN Reason: Per Sliding Scale Diagnostic Test (Pha) (Accu-Chek 1 Each Strip) 1 each FS ACHS [facility] Last Admin: 11/18/22 22:00 Dose: 1 each Diphenhydramine HCl (Diphenhydramine 25 Mg Capsule) 25 mg PO [facility] Last Admin: 11/18/22 21:58 Dose: 25 mg Docusate Sodium (Docusate Sodium 100 Mg Capsule) 100 mg PO BID [facility] Last Admin: 11/18/22 21:55 Dose: Not Given Duloxetine HCl (Duloxetine 30 Mg Capsule) 30 mg PO BID [facility] Last Admin: 11/18/22 22:06 Dose: 30 mg Famotidine (Famotidine 20 Mg Tablet) 20 mg PO BID [facility] Last Admin: 11/18/22 21:58 Dose: 20 mg Gabapentin (Gabapentin 300 Mg Capsule) 300 mg PO QHS [facility] Last Admin: 11/18/22 21:59 Dose: 300 mg Glucose (Dextrose 31 Gm Oral.Susp) 15 gm PO PRN PRN PRN Reason: Hypoglycemia Insulin Glargine (Insulin Glargine, Human 1 Unit/0.01 Ml) 23 unit SQ [facility] Last Admin: 11/18/22 22:12 Dose: 23 units Insulin Human Lispro (Insulin Lispro 1 Unit/0.01 Ml Unit) 0 unit SQ [facility]; Protocol Last Admin: 11/18/22 22:19 Dose: 9 units Ketorolac Tromethamine (Ketorolac 15 Mg/Ml Vial) 15 mg IV Q6HP PRN PRN Reason: Pain Last Admin: 11/19/22 02:27 Dose: 15 mg Lactulose (Lactulose 20 Gm/30 Ml Oral.[place]) 10 gm PO DAILYP PRN PRN Reason: Constipation Levothyroxine Sodium (Levothyroxine 100 Mcg Tablet) 200 mcg PO ACB [facility] Last Admin: 11/18/22 08:30 Dose: 200 mcg Magnesium Oxide (Magnesium Oxide 400 Mg Tablet) 800 mg PO DAILY [facility] Last Admin: 11/18/22 08:30 Dose: 800 mg Melatonin (Melatonin 3 Mg Tablet) 3 mg PO QHS [facility] Last Admin: 11/18/22 22:00 Dose: Not Given Methocarbamol (Methocarbamol 1,000 Mg/10 Ml Vial) 1,000 mg IV Q8HP PRN PRN Reason: Muscle Spasm Last Admin: 11/19/22 02:27 Dose: 1,000 mg Nystatin (Nystatin Powder Bottle 15gm) 1 dose TOPICAL BID [facility] Last Admin: 11/18/22 22:01 Dose: 1 dose Ondansetron HCl (Ondansetron 4 Mg/2 Ml Vial) 4 mg IV Q4HP PRN; Protocol PRN Reason: Nausea And Vomiting Last Admin: 11/17/22 08:11 Dose: 4 mg [facility]oprazole S[facility] ([facility] 40 Mg Tablet) [facility] Admin: 11/18/22 08:29 Dose: 40 mg Potassium Chloride (Potassium Chloride 20 Meq Tablet) 20 meq PO BIDCC [facility] Last Admin: 11/18/22 16:54 Dose: 20 meq [facility]one ([facility] 20 Mg Tablet) [facility] Last Admin: 11/18/22 08:30 Dose: 20 mg Pyridostigmine [place] (Pyridostigmine 60 Mg Tablet) 60 mg PO QID [facility] Last Admin: 11/18/22 22:01 Dose: 60 mg Senna (Sennosides 1 Tablet) 2 tab PO HSP PRN PRN Reason: Constipation Sodium Chloride (0.9 % Sodium Chloride 10 Ml Syringe) 10 ml IV Q8 [facility] Last Admin: 11/19/22 05:56 Dose: 10 ml Temazepam (Temazepam 15 Mg Capsule) 15 mg PO HSP PRN PRN Reason: Insomnia A/P Narrative A/P Narrative: Assessment and Plans: *UTI(E.coli) w/severe sepsis: -Procalcitonin mildly elevated -Blood culture, no growth to date, Urine culture, no growth to date -cbc w/ auto diff in the morning to trend WBC -Rocephin *T2DM w/neuropathy: -HgA1c 8.2 -Hold oral hypoglycemics, -Insulin Lantus 23 unit HS, SSI *h/o Myasthenia Gravis: on chronic prednisone and Pyridostigmine. Monitor -cont home Prednisone/Pyridostigmine *Encephalopathy/Delerium (intermittent confusion, drowsiness): confusion worse a t night. improving -CT brain no acute pathology, ?mild ventriculomegaly -monitor myasthenia gravis -restarted gabapentin qhs *THANIA on CKDIII: improved -Avoid nephrotoxic agents -CMP in the morning to trend kidney functions *Metabolic acidosis: improved *Hypokalemia/Hyponatremia/Hypophos: -replace prn and trend, *Hypothyroidism: Continue thyroid replacement therapy . tsh wnl *Anemia, chronic: *Generalized weakness/deconditioning: -Physical therapy evaluation and treatment -CM for placement *History of recurrent SBO's: follows with Dr. Currie *Obesity: BMI 43 *h/o Multifocal PE: continuing apixaban *GERD: ppi *Transaminitis: improving *ppx: Eliquis Time Spent With Patient Time: Total time spent is greater than 50% in coordination of care (as documented) at patient's floor/unit and/or counseling patient: Subsequent: Total time with patient: 35 - 49 minutes
[2022-11-19] MEDS: LEVOTHYROXINE 100 MCG TABLET PO SCH (08:15)
[2022-11-19] MEDS: PANTOPRAZOLE 40 MG TABLET PO SCH (08:16)
[2022-11-19] MEDS: INSULIN LISPRO 1 UNIT/0.01 ML UNIT SQ SCH ×4 (08:19→21:55)
[2022-11-19] MEDS: cefTRIAXone 1 GM VIAL IV SCH (09:05)
[2022-11-19] MEDS: FAMOTIDINE 20 MG TABLET PO SCH ×2 (09:08→21:40)
[2022-11-19] MEDS: amLODIPine 10 MG TABLET PO SCH (09:08)
[2022-11-19] MEDS: APIXABAN 5 MG TABLET PO SCH ×2 (09:08→21:41)
[2022-11-19] MEDS: CALCIUM (OYSTER SHELL) 500 MG TABLET PO SCH ×2 (09:08→21:38)
[2022-11-19] MEDS: DOCUSATE SODIUM 100 MG CAPSULE PO SCH ×2 (09:09→21:38)
[2022-11-19] MEDS: DULoxetine 30 MG CAPSULE PO SCH ×2 (09:09→21:39)
[2022-11-19] MEDS: BACLOFEN 10 MG TABLET PO SCH ×3 (09:09→21:40)
[2022-11-19] MEDS: MAGNESIUM OXIDE 400 MG TABLET PO SCH (09:09)
[2022-11-19] MEDS: PYRIDOSTIGMINE 60 MG TABLET PO SCH ×4 (09:09→21:38)
[2022-11-19] MEDS: POTASSIUM CHLORIDE 20 MEQ TABLET PO SCH ×2 (09:18→16:46)
[2022-11-19] MEDS: predniSONE 20 MG TABLET PO SCH (09:18)
[2022-11-19] MEDS: ACETAMINOPHEN 325 MG TABLET PO PRN ×2 (09:23→16:46)
[2022-11-19] MEDS: NYSTATIN POWDER BOTTLE 15GM TOPICAL SCH ×2 (09:27→21:56)
[2022-11-19] MEDS: ONDANSETRON 4 MG/2 ML VIAL IV PRN ×2 (19:50→23:33)
[2022-11-19] MEDS: GABAPENTIN 300 MG CAPSULE PO SCH (21:38)
[2022-11-19] MEDS: MELATONIN 3 MG TABLET PO SCH (21:40)
[2022-11-19] MEDS: diphenhydrAMINE 25 MG CAPSULE PO SCH (21:40)
[2022-11-19] MEDS: INSULIN GLARGINE, HUMAN 1 UNIT/0.01 ML SQ SCH (21:55)
[2022-11-20] MEDS: 0.9 % SODIUM CHLORIDE 10 ML SYRINGE IV SCH (05:50)
[2022-11-20] MEDS: PANTOPRAZOLE 40 MG TABLET PO SCH (07:11)
[2022-11-20] MEDS: POTASSIUM CHLORIDE 20 MEQ TABLET PO SCH (07:11)
[2022-11-20] MEDS: LEVOTHYROXINE 100 MCG TABLET PO SCH (07:11)
[2022-11-20] MEDS: predniSONE 20 MG TABLET PO SCH (07:11)
[2022-11-20] MEDS: INSULIN LISPRO 1 UNIT/0.01 ML UNIT SQ SCH ×2 (07:15→11:19)
--- NOTE | 2022-11-20 08:05 | Internal Med Progress Note ---
SUBJECTIVE Subjective Patient information: Note initiated : 11/20/22 at 8:01 am Service Date, if different from initiated Date: [] Patient: Dayanna Guo a 61 y/o F admitted on 11/13/22 for weakness. Chief Complaint: [] Interval history: Ms. Guo is a 61 year old F history of myasthenia gravis, hypothyroidism, type 2 diabetes mellitus, status post urostomy placement, presenting with 3-day history of leg cramps, nausea, vomiting, diaphoresis, dysuria. Patient has a history of frequent urinary tract infections. Vital signs at ED presentations significant for tachycardia heart rate in the 1 teens beats per minutes. Labs significant for leukocytosis with WBC 19.2. Serum lactic acid 3.4. Potassium level 5.4. BUN/creatinine 52, 1.4, respectively. UA suggesting the presence of urinary tract infection. Admission request was called for urinary tract infections with clinical sepsis. 2/: Afebrile overnight. WBC 18.0. Blood and urine cultures no growth to date. Patient has been lethargic. Increase Prednisone from 20 to 40mg PO daily, stress dose. Continue Rocephin and NS@100cc/hr while monitoring culture results. Pending physical therapy evaluation and treatment for placement planning. 2/2: Patient more awake and alert, although she is still c/o general body weakness and confusion. Serum sodium 125-->135. Potassium 3.3. WBC 18.0-->12.1. Urine culture E coli; blood culture no growth to date. Prednisone 40mg PO daily day 2/3. Saline lock. Potassium chloride PO replacement. BMP at 3pm. Amlodipine for better blood pressure control. Toradol IV PRN back pain. Pending physical therapy evaluation and treatment for placement planning. 2/3 Patient states she feels feels worse today. She says she feels dizzy. She feels sleepy and at times having difficulty expressing herself. feels weak. Leukocytosis improved. Vital signs stable. Sodium better and acid base improving. 2/4 Patient has occasional visual hallucinations when she is almost asleep. Still tired but she seems to be a little more alert than she was yesterday. We will hold her gabapentin for now. Acidosis improved. Physical therapy was able to get her to the bedside and stand momentarily. Still very weak. 11/18 Patient's states she had poor sleep last night. Otherwise her mentation seems to be a bit better, more clear. Does have a mild headache on the right. She feels a little puffy. Acid-base improved. 11/19 Patient states she slept well last night and does feel better today. Mentation continues to improve. She says she does have restless legs at times. 11/20 Feeling much better today. Better sleep. Awaiting follow-up chemistry. Awaiting PT eval and placement needs. Review of Systems: Has headache. Denies fever/chills/nausea/vomiting/chest or abdominal pain/cough/dyspnea/diarrhea. Otherwise see above. Constitutional Vitals: Vital Signs Temp Pulse Resp BP Pulse Ox O2 Del Method O2 Flow Rate 96.6 F L 86 18 117/78 92 Room Air 0 11/20/22 02:46 11/20/22 02:46 11/20/22 02:46 11/20/22 02:46 11/20/22 02:46 11/20/22 02:46 11/19/22 08:01 Period Temp Pulse Resp BP Sys/Archuleta Pulse Ox O2 Del Method O2 Flow Rate Last 24 Hr 96.6 F-98.3 F 86-102 14-22 117-127/78-93 92-99 Room Air-Room Air Intake and Output 11/19/22 11/20/22 11/20/22 19:59 03:59 11:59 Intake Total 240 100 Output Total 175 1600 350 Balance 65 -1500 -350 Weight 130.453 kg Intake & Output: Intake & Output 11/19/22 11/20/22 11/20/22 19:59 03:59 11:59 Intake Total 240 100 Output Total 175 1600 350 Balance 65 -1500 -350 Weight 130.453 kg Intake: Oral 240 100 Output: Urine Catheter Amount 600 Stool 175 1000 350 Other: Meal Lunch Percent of Meal Consumed 50% Urine Appearance Clear Urine Color Dark Yellow Stool Color Brown Green Stool Consistency Liquid Liquid Liquid Loose Exam: General: Awake, No acute Distress, obese Eyes/N/T: EOMI, Head/Neck: neck supple, CV: RRR, No murmurs, normal s1/s2 Pulm: Clear b/l, no wheezing/rhonchi/rales Abd: soft, nontender, +BS x4, ostomy Ext: no clubbing/cyanosis/edema Neuro: Awake and alert. no focal deficits, moves all extremities, Skin: warm/dry OBJ DATA Labs 11/15/22 05:13 11/18/22 05:10 Labs: Abnormal Lab Results 11/18/22 05:10 Anion Gap 7.0 L BUN 30 H Glucose 123 H Phosphorus 2.0 L ALT 57 H Total Protein 5.5 L Albumin 2.7 L Triglycerides 284 H Meds: Medications Acetaminophen (Acetaminophen 325 Mg Tablet) 650 mg PO Q6HP PRN; Protocol PRN Reason: Per Pain Protocol/Fever > 101 Last Admin: 11/19/22 16:46 Dose: 650 mg Albuterol/Ipratropium (Ipratropium/Albuterol 3 Ml Ampul.Neb) 3 ml NEB Q4HRT PRN PRN Reason: Wheezing Amlodipine Besylate (Amlodipine 10 Mg Tablet) 10 mg PO DAILY [facility] Last Admin: 11/19/22 09:08 Dose: 10 mg Apixaban (Apixaban 5 Mg Tablet) 5 mg PO BID [facility] Last Admin: 11/19/22 21:41 Dose: 5 mg Baclofen (Baclofen 10 Mg Tablet) 10 mg PO TID [facility] Last Admin: 11/19/22 21:40 Dose: 10 mg Calcitriol (Calcitriol 0.25 Mcg Capsule) 0.25 mcg PO TuThSa@0900 [facility] Last Admin: 11/17/22 08:02 Dose: 0.25 mcg Calcium Carbonate/Glycine (Calcium (Oyster Shell) 500 Mg Tablet) 1,000 mg PO BID [facility] Last Admin: 11/19/22 21:38 Dose: 1,000 mg Ceftriaxone Sodium (Ceftriaxone 1 Gm Vial) 1 gm IV Q24H [facility] Last Admin: 11/19/22 09:05 Dose: 1 gm Dextrose (Dextrose 50% 50 Ml Vial) 0 ml IV UD PRN PRN Reason: Per Sliding Scale Diagnostic Test (Pha) (Accu-Chek 1 Each Strip) 1 each FS ACHS [facility] Last Admin: 11/20/22 07:15 Dose: 1 each Diphenhydramine HCl (Diphenhydramine 25 Mg Capsule) 25 mg PO HS [facility] Last Admin: 11/19/22 21:40 Dose: 25 mg Docusate Sodium (Docusate Sodium 100 Mg Capsule) 100 mg PO BID [facility] Last Admin: 11/19/22 21:38 Dose: 100 mg Duloxetine HCl (Duloxetine 30 Mg Capsule) 30 mg PO BID [facility] Last Admin: 11/19/22 21:39 Dose: 30 mg Famotidine (Famotidine 20 Mg Tablet) 20 mg PO BID [facility] Last Admin: 11/19/22 21:40 Dose: 20 mg Gabapentin (Gabapentin 300 Mg Capsule) 300 mg PO QHS [facility] Last Admin: 11/19/22 21:38 Dose: 300 mg Glucose (Dextrose 31 Gm Oral.Susp) 15 gm PO PRN PRN PRN Reason: Hypoglycemia Insulin Glargine (Insulin Glargine, Human 1 Unit/0.01 Ml) 23 unit SQ HS [facility] Last Admin: 11/19/22 21:55 Dose: 23 units Insulin Human Lispro (Insulin Lispro 1 Unit/0.01 Ml Unit) 0 unit SQ [facility]; Protocol Last Admin: 11/20/22 07:15 Dose: Not Given Ketorolac Tromethamine (Ketorolac 15 Mg/Ml Vial) 15 mg IV Q6HP PRN PRN Reason: Pain Last Admin: 11/19/22 16:48 Dose: 15 mg Lactulose (Lactulose 20 Gm/30 Ml Oral.[place]) 10 gm PO DAILYP PRN PRN Reason: Constipation Levothyroxine Sodium (Levothyroxine 100 Mcg Tablet) 200 mcg PO ACB [facility] Last Admin: 11/20/22 07:11 Dose: 200 mcg Magnesium Oxide (Magnesium Oxide 400 Mg Tablet) 800 mg PO DAILY [facility] Last Admin: 11/19/22 09:09 Dose: 800 mg Melatonin (Melatonin 3 Mg Tablet) 3 mg PO QHS [facility] Last Admin: 11/19/22 21:40 Dose: 3 mg Methocarbamol (Methocarbamol 1,000 Mg/10 Ml Vial) 1,000 mg IV Q8HP PRN PRN Reason: Muscle Spasm Last Admin: 11/19/22 02:27 Dose: 1,000 mg Nystatin (Nystatin Powder Bottle 15gm) 1 dose TOPICAL BID [facility] Last Admin: 11/19/22 21:56 Dose: 1 dose Ondansetron HCl (Ondansetron 4 Mg/2 Ml Vial) 4 mg IV Q4HP PRN; Protocol PRN Reason: Nausea And Vomiting Last Admin: 11/19/22 23:33 Dose: 4 mg Pantoprazole Sodium (Pantoprazole 40 Mg Tablet) 40 mg PO QAMAC [facility] Last Admin: 11/20/22 07:11 Dose: 40 mg Potassium Chloride (Potassium Chloride 20 Meq Tablet) 20 meq PO BIDCC [facility] Last Admin: 11/20/22 07:11 Dose: 20 meq Prednisone (Prednisone 20 Mg Tablet) 20 mg PO QAMCC [facility] Last Admin: 11/20/22 07:11 Dose: 20 mg Pyridostigmine [place] (Pyridostigmine 60 Mg Tablet) 60 mg PO QID [facility] Last Admin: 11/19/22 21:38 Dose: 60 mg Senna (Sennosides 1 Tablet) 2 tab PO HSP PRN PRN Reason: Constipation Sodium Chloride (0.9 % Sodium Chloride 10 Ml Syringe) 10 ml IV Q8 [facility] Last Admin: 11/20/22 05:50 Dose: 10 ml Temazepam (Temazepam 15 Mg Capsule) 15 mg PO HSP PRN PRN Reason: Insomnia A/P Narrative A/P Narrative: Assessment and Plans: *UTI(E.coli) complicated w/severe sepsis: -Procalcitonin mildly elevated -Blood culture, no growth to date, -Rocephin *T2DM w/neuropathy: -HgA1c 8.2 -Hold oral hypoglycemics, -Insulin Lantus 23 unit HS, SSI *h/o Myasthenia Gravis: on chronic prednisone and Pyridostigmine. Monitor -cont home Prednisone/Pyridostigmine *Encephalopathy/Delerium (intermittent confusion, drowsiness): confusion worse at night. improving -CT brain no acute pathology, ?mild ventriculomegaly -monitor myasthenia gravis -restarted gabapentin qhs *THANIA on CKDIII: improved -Avoid nephrotoxic agents -CMP in the morning to trend kidney functions *Metabolic acidosis: improved *Hypokalemia/Hyponatremia/Hypophos: -replace prn and trend, now hyperkalemia > d/c potassium supp *Hypothyroidism: Continue thyroid replacement therapy . tsh wnl *Volume overload: diuresis yesterday, reval today and may repeat lasix *Anemia, chronic: *Generalized weakness/deconditioning: -Physical therapy evaluation and treatment - for placement *History of recurrent SBO's: follows with Dr. Currie *Obesity: BMI 43 *h/o Multifocal PE: continuing apixaban *GERD: ppi *Transaminitis: improving *ppx: Eliquis Time Spent With Patient Time: Total time spent is greater than 50% in coordination of care (as documented) at patient's floor/unit and/or counseling patient: Subsequent: Total time with patient: 35 - 49 minutes
[2022-11-20] MEDS: APIXABAN 5 MG TABLET PO SCH (08:25)
[2022-11-20] MEDS: FAMOTIDINE 20 MG TABLET PO SCH (08:26)
[2022-11-20] MEDS: CALCIUM (OYSTER SHELL) 500 MG TABLET PO SCH (08:26)
[2022-11-20] MEDS: BACLOFEN 10 MG TABLET PO SCH (08:26)
[2022-11-20] MEDS: amLODIPine 10 MG TABLET PO SCH (08:26)
[2022-11-20] MEDS: DULoxetine 30 MG CAPSULE PO SCH (08:26)
[2022-11-20] MEDS: CALCITRIOL 0.25 MCG CAPSULE PO SCH (08:26)
[2022-11-20] MEDS: MAGNESIUM OXIDE 400 MG TABLET PO SCH (08:26)
[2022-11-20] MEDS: PYRIDOSTIGMINE 60 MG TABLET PO SCH ×2 (08:27→12:37)
[2022-11-20] MEDS: DOCUSATE SODIUM 100 MG CAPSULE PO SCH (08:27)
[2022-11-20] MEDS: NYSTATIN POWDER BOTTLE 15GM TOPICAL SCH (08:28)
[2022-11-20] MEDS: cefTRIAXone 1 GM VIAL IV SCH (08:38)
[2022-11-20] MEDS ORDERED: ALBUMIN HUMAN 12.5 GM/50 ML VIAL IV ONE (09:20)
[2022-11-20] MEDS ORDERED: FUROSEMIDE 40 MG/4 ML VIAL IV ONE (09:20)
[2022-11-20 10:24] LABS: Phosphorous 2.5 mg/dL (2.5-4.5)
[2022-11-20 10:25] LABS: Blood Urea Nitrogen 54 mg/dL (6-20); Calcium 8.8 mg/dL (8.6-10.4); Carbon Dioxide 26 mmol/L (22-30); Chloride 97 mmol/L (96-108); Glomerular Filtration Rate 54; Glucose 117 mg/dL (70-105)
== END 2022-11-20 13:10 | DRG 871 ==
LOC: ED 21:16 → ICU 11-13 02:54 → MEDSUR 11-19 11:10
PROVIDERS: ADMIT Internal Medicine; ATTEND Internal Medicine

== ENCOUNTER 2022-11-30 18:02 | Inpatient (IN) ==
[2022-11-30] MEDS ORDERED: 0.9 % SODIUM CHLORIDE 1,000 ML IV ONE ×2 (18:43→20:06)
--- NOTE | 2022-11-30 18:51 | Emergency Department Note ---
HPI General Chief complaint: Nausea/Vomiting/Diarrhea Stated complaint: nausea Time Seen by Provider: 11/30/22 18:16 Source: patient, family and EMS Mode of arrival: EMS Limitations: no limitations History of Present Illness HPI Narrative: Narrative: 61-year-old female presents to the emergency department with increasing weakness and confusion. She was recently admitted to the hospital for sepsis. She was discharged to senior living about a week ago. She had been doing well until the past few days when she became increasingly more weak. She has been tired and has trouble finding her words. She complains of headache and body aches. She does not have a cough or shortness of breath. She complains of nausea and has vomited twice. She is taking Zofran to avoid the nausea and vomiting with some relief of symptoms. She has a colostomy bag and always has loose stools. She denies abdominal pain. She complains of urinary frequency and dysuria. She is incontinent of urine. Related Data Home Medications Medication Instructions Recorded Confirmed magnesium 500 mg tablet 1,000 mg PO QDAY 02/21/21 11/13/22 calcium 1,000 mg PO BID 02/01/22 11/13/22 famotidine 20 mg tablet 20 mg PO BID 07/20/22 11/13/22 pantoprazole 20 mg tablet,delayed 20 mg PO QDAY 07/20/22 11/13/22 release baclofen 10 mg tablet 10 mg PO TID 07/23/22 11/13/22 insulin glargine 100 unit/mL (3 23 unit subcut QPM 08/09/22 11/13/22 mL) subcutaneous pen (Lantus Solostar U-100 Insulin) Previous Rx's Medication Instructions Recorded apixaban 5 mg tablet (Eliquis) 5 mg PO BID #60 tabs 07/25/21 insulin syringe-needle U-100 1 mL #100 ea 12/05/21 32 gauge x 5/16" pen needle, diabetic 32 gauge x #200 ea 12/07/21 532" (BD Ultra-Fine Concepcion Pen Needle) pyridostigmine bromide 60 mg tablet 60 mg PO QID #120 tabs 02/26/22 duloxetine 30 mg capsule,delayed 30 mg PO BID #180 caps 04/12/22 release gabapentin 300 mg capsule 300 mg PO QID 30 days #360 caps 04/12/22 insulin lispro 100 unit/mL 1 sliding scale dose subcut TID 04/12/22 subcutaneous pen (Humalog KwikPen #45 Syringes (U-100) Insulin) calcitriol 0.25 mcg capsule See Rx Instructions .Route 05/15/22 .COMPLEX #15 caps blood sugar diagnostic (Contour #300 ea 06/14/22 Next Test Strips) levothyroxine 200 mcg tablet 200 mcg PO QDAY #90 tabs 06/19/22 prednisone 20 mg tablet [facility] [place] [facility] 09/11/22 dulaglutide 1.5 mg/0.5 mL 1.5 mg (0.5 mL) subcut QWEEK #2 mL 09/21/22 subcutaneous pen injector Allergies Allergy/AdvReac Type Severity Reaction Status Date / Time Sulfa (Sulfonamide Allergy Severe Anaphylaxis Verified 11/30/22 18:05 Antibiotics) adhesive tape AdvReac Mild Blister Verified 11/30/22 18:05 metoclopramide [From Reglan] AdvReac Mild Anxiety Verified 11/30/22 18:05 steri strips AdvReac Mild Blister Uncoded 09/21/22 08:47 Review of Systems ROS ROS Narrative: Narrative: All systems ED: reviewed and negative except as stated. [facility] Narrative Patient History Narrative: Narrative: Medical/Surgical/Family History All Active Problems (Updated 11/30/22 @ 22:03 by Christine Huggins PA-C) Sepsis (Acute) Hyponatremia (Acute) Stage 1 acute kidney injury (Acute) Hyperkalemia (Acute) Myasthenia gravis (Chronic) Sarcoidosis (Chronic) Hypothyroidism (Chronic) Hypertension (Chronic) Abnormal liver enzymes (Chronic) Chronic use of steroids (Chronic) Recurrent intestinal obstruction (Chronic) Obesity, Class II, BMI 35-39.9 (Chronic) Diabetes mellitus type 2, uncontrolled (Chronic) Chronic intestinal pseudo-obstruction (Chronic) Abdominal pain (Chronic) Chronic, continuous use of opioids (Chronic) LA (obstructive sleep apnea) (Chronic) Recurrent abdominal pain (Chronic) Sinus tachycardia (Chronic) Low blood magnesium level (Chronic) Hypocalcemia (Chronic) Elevated LFTs (Chronic) Electrolyte abnormality (Chronic) Small bowel obstruction (Chronic) Dehydration (Chronic) Primary chronic pseudo-obstruction of small intestine (Chronic) Nausea & vomiting (Chronic) Severe sepsis (Chronic) 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 (Chronic) Acute UTI (Chronic) Hypercalcemia (Chronic) COVID-19 (Chronic) Acute kidney injury (Chronic) Elevated serum creatinine (Chronic) Low back pain (Chronic) Partial small bowel obstruction (Chronic) Hypokalemia (Chronic) Diabetes mellitus (Chronic) Intractable abdominal pain (Chronic) Intractable vomiting with nausea (Chronic) Small bowel ischemia (Chronic) Pneumatosis intestinalis (Chronic) Right knee sprain (Chronic) Generalized weakness (Chronic) Hypercalcemia (Chronic) Acute hyperkalemia (Chronic) Leukocytosis (Chronic) Acidosis, lactic (Chronic) Fever of unknown origin (Chronic) Metabolic acidosis with normal anion gap and failure of bicarbonate regeneration (Chronic) Hyponatremia with decreased serum osmolality (Chronic) Ileostomy status (Chronic) Hypophosphatemia (Chronic) Bacteremia (Chronic) Hypoparathyroidism, unspecified (Chronic) SBO (small bowel obstruction) (Chronic) Anemia (Chronic) Acute hyperglycemia (Chronic) Acute dehydration (Chronic) Chronic iron deficiency anemia (Chronic) THANIA (acute kidney injury) (Chronic) Acute confusion (Chronic) Acute hyponatremia (Chronic) Acute delirium (Chronic) Myasthenia gravis (Chronic) Sepsis (Chronic) Morbid obesity (Chronic) UTI (urinary tract infection) (Acute) Hyperosmolar hyperglycemic state (HHS) (Acute) Hyperglycemia due to type 2 diabetes mellitus (Chronic) Clinical sepsis (Acute) Morbid obesity with BMI of 45.0-49.9, adult (Acute) UTI (urinary tract infection) (Acute) Acute hyperglycemia (Acute) Acute dehydration (Acute) Acute kidney injury (Acute) Dysuria (Acute) Urinary tract infection (Acute) Morbid obesity with BMI of 45.0-49.9, adult (Acute) Medicare annual wellness visit, initial (Acute) Recurrent UTI (Chronic) History of removal of Port-a-Cath (Chronic) Sepsis (Acute) UTI (urinary tract infection) (Acute) Hypersomnia (Acute) Medical History (Updated 11/30/22 @ 22:03 by Christine Huggins PA-C) Abdominal pain Abdominal wound dehiscence Abnormal liver enzymes Achalasia and cardiospasm Acute respiratory insufficiency Adverse reaction to drug Anaphylaxis Bowel obstruction Chronic intestinal pseudo-obstruction If no mechanical obstruction, patient says cholinesterase inhibitors usually works Linzess is another possibility Octreotide has helped in children Chronic use of steroids for myasthenia gravis; 10+ years, she started using steroids in 2002. Chronic, continuous use of opioids Need to minimize or stop as they are confusing the bowel issue Constipation due to neurogenic bowel Constipation due to pain medication therapy Dehydration Diabetes mellitus type 2, uncontrolled Encounter for care related to Port-a-Cath Fecal impaction Foot sprain Hypercalcemia Hypersomnia Hypertension Hypocalcemia Hyponatremia Hypothyroidism Ileus Infiltrate of lung present on imaging of chest Intractable vomiting Lactic acid acidosis Low blood magnesium level Medicare annual wellness visit, initial Morbid obesity Myasthenia gravis Nausea Nausea & vomiting Obesity, Class II, BMI 35-39.9 Chronic. Obstruction of descending colon LA (obstructive sleep apnea) Pancreatitis Parastomal hernia with obstruction, without gangrene Partial intestinal obstruction, unspecified as to cause Partial small bowel obstruction Pneumonia Polyglandular autoimmune syndrome I see no dental or nail dystrophy to suggest Type 1 polyglandular failure which is the only type associated with HYPOPARATHYROIDISM and no autoimmune adrenalitis. I have not read that MG is a feature and it's not clear that her thyroid disease is autoimmune in nature. So I'm skeptical of this Dx Primary chronic pseudo-obstruction of large intestine Pseudoobstruction of colon Pyelonephritis Recurrent abdominal pain Recurrent intestinal obstruction many recurrences; many surgical interventions Recurrent UTI Sarcoidosis Said to be present due to "granuloma's on hands" Check RADHA level On steroids forever for her MG Sepsis Sepsis associated hypotension Sepsis with acute hypoxic respiratory failure Sigmoid volvulus Sinus tachycardia Small bowel obstruction due to adhesions Small bowel obstruction due to postoperative adhesions Small bowel obstruction, partial Supraventricular tachycardia UTI (urinary tract infection) Volvulus of sigmoid colon Surgical History History of cholecystectomy (~2000) History of exploratory laparotomy 10/17/2017-with adhesiolysis; 12/01/2017-with adhesiolysis; 07/18/2018; 08/10/2018-Exploratory laparotomy with small bowel adhesiolysis and incisional hernia repair with mesh graft; 11/30/2020-with total intraabdominal adhesiolysis History of meniscal tear (~2007) right knee History of removal of Port-a-Cath RETAINED portion of cath present on CXR 08/04 - multiple failed attempts at removal per pt report History of thymectomy (~2002) History of tonsillectomy S/P ileostomy Family History Father CAD (coronary artery disease) Mother CAD (coronary artery disease) Diabetes Grandfather CVA (cerebral vascular accident) HTN (hypertension) Paternal Grandmother CVA (cerebral vascular accident) Dementia Maternal HTN (hypertension) Paternal Bone cancer Maternal Cancer of back Paternal Aunt Diabetes Breast cancer Uncle Diabetes Brain cancer Social History Smoking Status: Never smoker Alcohol Intake Frequency: does not drink Substance Use: does not use Exam Narrative Narrative: Narrative: General Limitations: no limitations General appearance: Present lethargic and obese Head Head: Present atraumatic and normocephalic Eye Eye: Present normal appearance and EOMI Neck Neck: Present full ROM; Absent lymphadenopathy Respiratory Respiratory: Present normal lung sounds bilaterally Cardiovascular Cardiovascular: Present normal heart sounds Adbominal Abdominal: Present soft and other (Colostomy bag in place.); Absent tenderness Extremities Extremities: Present normal inspection and other (Trace lower extremity edema.) Back Back: Present normal inspection; Absent CVA tenderness (R) or CVA tenderness (L) Skin Skin: Present warm (WNL) Course Vital Signs Vital signs: Vital Signs Temperature 96.9 F L 11/30/22 18:03 Pulse Rate 99 H 11/30/22 18:03 Respiratory Rate 16 11/30/22 18:03 Blood Pressure 170/122 11/30/22 18:03 Pulse Oximetry (%) 94 11/30/22 18:03 Oxygen Delivery Method Room Air 11/30/22 18:03 Temperature 96.9 F L 11/30/22 18:03 Pulse Rate 84 11/30/22 20:46 Respiratory Rate 13 11/30/22 20:46 Blood Pressure 136/82 11/30/22 20:46 Pulse Oximetry (%) 94 11/30/22 20:46 Oxygen Delivery Method Room Air 11/30/22 18:03 [facility] MDM Narrative Medical decision making narrative: Narrative: Patient had had urinary incontinence prior to me entering the room. Her urine is very foul-smelling. This is concerning for UTI with possible urosepsis again. CBC, CMP, blood cultures, VBG, lactic acid, urinalysis, chest x-ray, and IV fluids were ordered. White cell count is 19,500. Patient was treated with another liter of IV fluids as well as with IV Rocephin. Lactic acid is 1.5. Patient is mildly acidotic with pH of 7.27 and bicarb 21.2. Urinalysis is positive for blood, white cells, and bacteria. Patient has urosepsis. I have spoken with the hospitalist who will admit her. Lab Data Lab results reviewed: Yes I reviewed the patient's lab results. 11/30/22 18:56 11/30/22 18:56 Labs: Lab Results 11/30/22 11/30/22 11/30/22 Range/Units 18:56 18:56 18:58 WBC 19.5 H (4.5-11.0) K/mcL RBC 5.34 (3.59-5.38) M/mcL Hgb 14.5 (11.2-15.7) g/dL Hct 45.1 H (34.1-44.9) % MCV 84.5 (80.0-100.0) fL MCH 27.2 (26.0-34.0) pg MCHC 32.2 (31.0-36.0) g/dL RDW 16.2 H (11.5-14.5) % Plt Count 340 (140-440) K/mcL MPV 9.7 (8.8-12.5) fL Immature Gran % (Auto) 1.6 H (0.0-0.5) % Neut % (Auto) 86.6 H (38.0-78.0) % Lymph % (Auto) 6.8 L (15.5-49.0) % [place] % (Auto) 4.6 (1.0-12.0) % Eos % (Auto) 0.1 (0.0-7.0) % Baso % (Auto) 0.3 (0.0-2.0) % Lymph # (Auto) 1.33 L (1.50-4.80) K/mcL [place] # (Auto) 0.89 (0.10-0.90) K/mcL Eos # (Auto) 0.02 (0.00-0.70) K/mcL Baso # (Auto) 0.06 (0.00-0.30) K/mcL Immature Gran # 0.31 H (0.00-0.05) K/mcl Absolute Neutrophils 16.93 H (1.80-8.00) K/mcL POC VBG pH 7.27 L (7.32-7.42) POC VBG pCO2 at Temp 46.3 (41-51) POC VBG pO2 30 (25-40) POC VBG HCO3 21.2 L (24-28) POC VBG Total CO2 23.0 L (25-29) POC Venous O2 Sat 48.0 (40-70) POC VBG Base Excess -6.0 L (-2-2) VBG Lactic Acid 1.5 (0.5-2) Sodium 131 L (133-145) mmol/L Potassium 4.7 (3.3-5.1) mmol/L Chloride 98 (96-108) mmol/L Carbon Dioxide 21 L (22-30) mmol/L Anion Gap 12.0 (8.0-16.0) BUN 33 H (6-20) mg/dL Creatinine 1.1 (0.6-1.1) mg/dL GFR Calculation 54 Glucose 232 H (70-105) mg/dL Calcium 6.6 L (8.6-10.4) mg/dL Total Bilirubin 0.2 (0.1-1.0) mg/dL AST 31 (<32) U/L ALT 70 H (<40) U/L Alkaline Phosphatase 151 H (39-117) U/L Total Protein 6.4 (5.9-8.4) gm/dL Albumin 3.5 (3.2-5.2) gm/dL Globulin 2.9 (2.2-3.7) gm/dL Albumin/Globulin Ratio 1.2 (1.0-2.3) Urine Color Urine Appearance (Clear) Urine pH (5.0-9.0) Ur Specific Glennie (1.000-1.035) Urine Protein (Negative) mg/dL Urine Glucose (UA) (Negative) mg/dL Urine Ketones (Negative) mg/dL Urine Occult Blood (Negative) mg/dL Urine Nitrate (Negative) Urine Bilirubin (Negative) mg/dL Urine Urobilinogen mg/dL Ur Leukocyte Esterase (Negative) /uL Urine RBC (0-1) /hpf Urine WBC (0-4) /hpf Ur Squamous Epith Cells (0-4) /hpf Urine Bacteria (0) /hpf Hyaline Casts (0-2) /lph Urine Mucus (None) /hpf Ur Culture Indicated? 11/30/22 Range/Units 19:25 WBC (4.5-11.0) K/mcL RBC (3.59-5.38) M/mcL Hgb (11.2-15.7) g/dL Hct (34.1-44.9) % MCV (80.0-100.0) fL MCH (26.0-34.0) pg MCHC (31.0-36.0) g/dL RDW (11.5-14.5) % Plt Count (140-440) K/mcL MPV (8.8-12.5) fL Immature Gran % (Auto) (0.0-0.5) % Neut % (Auto) (38.0-78.0) % Lymph % (Auto) (15.5-49.0) % [place] % (Auto) (1.0-12.0) % Eos % (Auto) (0.0-7.0) % Baso % (Auto) (0.0-2.0) % Lymph # (Auto) (1.50-4.80) K/mcL [place] # (Auto) (0.10-0.90) K/mcL Eos # (Auto) (0.00-0.70) K/mcL Baso # (Auto) (0.00-0.30) K/mcL Immature Gran # (0.00-0.05) K/mcl Absolute Neutrophils (1.80-8.00) K/mcL POC VBG pH (7.32-7.42) POC VBG pCO2 at Temp (41-51) POC VBG pO2 (25-40) POC VBG HCO3 (24-28) POC VBG Total CO2 (25-29) POC Venous O2 Sat (40-70) POC VBG Base Excess (-2-2) VBG Lactic Acid (0.5-2) Sodium (133-145) mmol/L Potassium (3.3-5.1) mmol/L Chloride (96-108) mmol/L Carbon Dioxide (22-30) mmol/L Anion Gap (8.0-16.0) BUN (6-20) mg/dL Creatinine (0.6-1.1) mg/dL GFR Calculation Glucose (70-105) mg/dL Calcium (8.6-10.4) mg/dL Total Bilirubin (0.1-1.0) mg/dL AST (<32) U/L ALT (<40) U/L Alkaline Phosphatase (39-117) U/L Total Protein (5.9-8.4) gm/dL Albumin (3.2-5.2) gm/dL Globulin (2.2-3.7) gm/dL Albumin/Globulin Ratio (1.0-2.3) Urine Color [place] Urine Appearance Cloudy A (Clear) Urine pH 6.0 (5.0-9.0) Ur Specific Glennie 1.012 (1.000-1.035) Urine Protein 100 A (Negative) mg/dL Urine Glucose (UA) Negative (Negative) mg/dL Urine Ketones Negative (Negative) mg/dL Urine Occult Blood >=1.0 A (Negative) mg/dL Urine Nitrate Negative (Negative) Urine Bilirubin Negative (Negative) mg/dL Urine Urobilinogen Negative mg/dL Ur Leukocyte Esterase 500 A (Negative) /uL Urine RBC > 182 H (0-1) /hpf Urine WBC 136 H (0-4) /hpf Ur Squamous Epith Cells 0 (0-4) /hpf Urine Bacteria Many A (0) /hpf Hyaline Casts 2 (0-2) /lph Urine Mucus Mod A (None) /hpf Ur Culture Indicated? yes ED POC Tests ED POC Tests: MARA - Influenza A Negative MARA - Influenza B Negative MARA - SARS Antigen Negative Discharge Plan Patient/Caregiver Discharge Instructions Pt seen by CHAIR PAD MAKER/PA only: Yes Clinical Impression: Sepsis, Acute UTI Patient Disposition: Xfer As Inpt ([facility]) Follow up with: Mookie Paiz MD [Primary Care Provider] - Prescriptions: No Action Eliquis 5 mg tablet 5 mg PO BID Qty: 60 5RF (DME) insulin syringe-needle U-100 1 mL 32 gauge x 5/16" syringe See Rx Instructions .Route Qty: 100 0RF Rx Instructions: Use with Lantus BID (DME) pen needle, diabetic [BD Ultra-Fine Concepcion Pen Needle] 32 gauge x 5/32" n eedle See Rx Instructions .Route Qty: 200 5RF Rx Instructions: Use up to 6 injections per day pyridostigmine bromide 60 mg tablet 60 mg PO QID Qty: 120 5RF gabapentin 300 mg capsule 300 mg PO QID 30 Days Qty: 360 1RF duloxetine 30 mg capsule,delayed release(DR/EC) 30 mg PO BID Qty: 180 1RF insulin lispro [Humalog KwikPen Insulin] 100 unit/mL insulin pen 1 sliding scale dose subcut TID Qty: 45 1RF Rx Instructions: max per day 50 units calcitriol 0.25 mcg capsule See Rx Instructions .ROUTE .COMPLEX Qty: 15 6RF Dose Instruction: TAKE ONE CAPSULE BY MOUTH ON SATURDAY, SATURDAY AND SATURDAY FOR SUPPLEMENT Rx Instructions: TAKE ONE CAPSULE BY MOUTH ON SATURDAY, SATURDAY AND SATURDAY FOR SUPPLEMENT (DME) Contour Next Test Strips Strip See Rx Instructions .ROUTE .COMPLEX Qty: 300 3RF Dose Instruction: FOR DIABETES; USE 4 TIMES DAILY Rx Instructions: FOR DIABETES; USE 4 TIMES DAILY levothyroxine 200 mcg tablet 200 mcg PO QDAY Qty: 90 1RF pantoprazole 20 mg tablet,delayed release (DR/EC) 20 mg PO QDAY famotidine 20 mg tablet 20 mg PO BID prednisone 20 mg tablet 20 mg PO [facility] Qty: 90 0RF baclofen 10 mg tablet 10 mg PO TID dulaglutide 1.5 mg/0.5 mL pen injector 1.5 mg subcut QWEEK Qty: 2 2RF calcium 1,000 mg PO BID magnesium 500 mg Tablet 1,000 mg PO QDAY insulin glargine [Lantus Solostar U-100 Insulin] 100 unit/mL (3 mL) insulin pen 23 unit subcut QPM
[2022-11-30 19:49] LABS: Basophils # (Auto) 0.06 K/mcL (0.00-0.30); Basophils % (Auto) 0.3 % (0.0-2.0); Eosinophils # (Auto) 0.02 K/mcL (0.00-0.70); Eosinophils % (Auto) 0.1 % (0.0-7.0); Hematocrit 45.1 % (34.1-44.9); Hemoglobin 14.5 g/dL (11.2-15.7); Lymphocytes # (Auto) 1.33 K/mcL (1.50-4.80); Lymphocytes % (Auto) 6.8 % (15.5-49.0); Mean Cell Volume 84.5 fL (80.0-100.0); Mean Corpuscular HGB Conc 32.2 g/dL (31.0-36.0); Mean Platelet Volume 9.7 fL (8.8-12.5); Monocytes # (Auto) 0.89 K/mcL (0.10-0.90); Monocytes % (Auto) 4.6 % (1.0-12.0); Neutrophils % (Auto) 86.6 % (38.0-78.0); Platelet Count 340 K/mcL (140-440); RBC 5.34 M/mcL (3.59-5.38); Red Cell Distribution Width 16.2 % (11.5-14.5); WBC 19.5 K/mcL (4.5-11.0)
[2022-11-30] MEDS ORDERED: cefTRIAXone 2 GM in DEXTROSE 5% IN WATER 50 ML IV ONE (20:05)
[2022-11-30 20:10] LABS: ALT/SGPT 70 U/L (<40); AST/SGOT 31 U/L (<32); Albumin 3.5 gm/dL (3.2-5.2); Albumin/Globulin Ratio 1.2 (1.0-2.3); Alkaline Phosphatase 151 U/L (39-117); Bilirubin,Total 0.2 mg/dL (0.1-1.0); Blood Urea Nitrogen 33 mg/dL (6-20); Calcium 6.6 mg/dL (8.6-10.4); Carbon Dioxide 21 mmol/L (22-30); Chloride 98 mmol/L (96-108); Globulin 2.9 gm/dL (2.2-3.7); Glomerular Filtration Rate 54; Glucose 232 mg/dL (70-105)
[2022-11-30 20:36] LABS: Appearance,Urine CLOUDY (Clear); Bacteria,Urine MANY /hpf (0); Bilirubin,Urine Negative (Negative); Color,Urine Pink; Culture Indicated,Urine yes; Glucose,Urine (UA) Negative (Negative); Ketones,Urine Negative (Negative); Leukocyte Esterase,Urine 500 /uL (Negative); Mucus,Urine MOD /hpf; Nitrate,Urine Negative (Negative); Protein,Urine 100 mg/dL (Negative); Specific Gravity,Urine 1.012 (1.000-1.035); Urine Blood >=1.0 mg/dL (Negative); Urine Hyaline Cast 2 /lph (0-2); Urine RBC > 182 /hpf (0-1); Urine Squamous Epithelial Cell 0 /hpf (0-4); Urine WBC 136 /hpf (0-4); Urobilinogen,Urine Negative
--- NOTE | 2022-11-30 21:47 | Internal Med History&Physical ---
HPI History of Present Illness Patient information: Note initiated : 11/30/22 at 9:35 pm Service Date, if different from initiated Date: [] Patient: Dayanna Guo a 61 y/o F admitted on for nausea. Chief Complaint: [] History of present illness: Ms. Guo is a 61 year old F Presents today with confusion weakness dysuria. She was recently admitted here on November 12 and discharged on November 20 for UTI sepsis with E. coli. [facility]. She presents now for similar symptoms and work-up in the ED positive for UTI sepsis. This is most likely a hygiene issue given her morbid obesity and immobility. She has had some nausea and has vomited twice but that has resolved and she does not have any of her bowel obstruction symptoms that she has had in the past including no abdominal pain. Patient denies fever chills but complains of headache dizziness weakness dysuria and foul smelling urine. Patient says she has been incontinent for the past few weeks at least. And she was found to be incontinent today. Patient was mildly tachycardic in the ED. She had a leukocytosis of 19,000. She was hypokalemic at 6.6. Mild hyponatremia at 131. BUN 33 creatinine 1.1. Urine was consistent with signs of infection. Review of Systems: Pertinent positives above. Denies headache/fever/chills/chest or abdominal pain/cough/dyspnea/diarrhea. Remaining 10 point review of system reviewed negative PHYSICAL EXAM: General: Alert, Awake, No acute Distress, obese Eyes/N/T: EOMI, no scleral icterus, PERRL, MM Head/Neck: neck supple, full ROM, normocephalic atraumatic CV: RRR, No murmurs, normal s1/s2 Pulm: Clear b/l, no wheezing/rhonchi/rales, no respiratory distress Abd: soft, nontender, +BS x4, ostomy Ext: no clubbing/cyanosis/edema, nontender Neuro: Alert, no focal deficits, moves all extremities, CN 2-12 grossly intact, sensations intact b/l upper/lower Psychiatric: Skin: warm/dry, normal color PFSH PFSH All Active Problems (Updated 11/14/22 @ 13:49 by Jt Spring MD) Hyponatremia (Acute) Stage 1 acute kidney injury (Acute) Hyperkalemia (Acute) Myasthenia gravis (Chronic) Sarcoidosis (Chronic) Hypothyroidism (Chronic) Hypertension (Chronic) Abnormal liver enzymes (Chronic) Chronic use of steroids (Chronic) Recurrent intestinal obstruction (Chronic) Obesity, Class II, BMI 35-39.9 (Chronic) Diabetes mellitus type 2, uncontrolled (Chronic) Chronic intestinal pseudo-obstruction (Chronic) Abdominal pain (Chronic) Chronic, continuous use of opioids (Chronic) LA (obstructive sleep apnea) (Chronic) Recurrent abdominal pain (Chronic) Sinus tachycardia (Chronic) Low blood magnesium level (Chronic) Hypocalcemia (Chronic) Elevated LFTs (Chronic) Electrolyte abnormality (Chronic) Small bowel obstruction (Chronic) Dehydration (Chronic) Primary chronic pseudo-obstruction of small intestine (Chronic) Nausea & vomiting (Chronic) Severe sepsis (Chronic) 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 (Chronic) Acute UTI (Chronic) Hypercalcemia (Chronic) COVID-19 (Chronic) Acute kidney injury (Chronic) Elevated serum creatinine (Chronic) Low back pain (Chronic) Partial small bowel obstruction (Chronic) Hypokalemia (Chronic) Diabetes mellitus (Chronic) Intractable abdominal pain (Chronic) Intractable vomiting with nausea (Chronic) Small bowel ischemia (Chronic) Pneumatosis intestinalis (Chronic) Right knee sprain (Chronic) Generalized weakness (Chronic) Hypercalcemia (Chronic) Acute hyperkalemia (Chronic) Leukocytosis (Chronic) Acidosis, lactic (Chronic) Fever of unknown origin (Chronic) Metabolic acidosis with normal anion gap and failure of bicarbonate regeneration (Chronic) Hyponatremia with decreased serum osmolality (Chronic) Ileostomy status (Chronic) Hypophosphatemia (Chronic) Bacteremia (Chronic) Hypoparathyroidism, unspecified (Chronic) SBO (small bowel obstruction) (Chronic) Anemia (Chronic) Acute hyperglycemia (Chronic) Acute dehydration (Chronic) Chronic iron deficiency anemia (Chronic) THANIA (acute kidney injury) (Chronic) Acute confusion (Chronic) Acute hyponatremia (Chronic) Acute delirium (Chronic) Myasthenia gravis (Chronic) Sepsis (Chronic) Morbid obesity (Chronic) UTI (urinary tract infection) (Acute) Hyperosmolar hyperglycemic state (HHS) (Acute) Hyperglycemia due to type 2 diabetes mellitus (Chronic) Clinical sepsis (Acute) Morbid obesity with BMI of 45.0-49.9, adult (Acute) UTI (urinary tract infection) (Acute) Acute hyperglycemia (Acute) Acute dehydration (Acute) Acute kidney injury (Acute) Dysuria (Acute) Urinary tract infection (Acute) Morbid obesity with BMI of 45.0-49.9, adult (Acute) Medicare annual wellness visit, initial (Acute) Recurrent UTI (Chronic) History of removal of Port-a-Cath (Chronic) Sepsis (Acute) UTI (urinary tract infection) (Acute) Hypersomnia (Acute) Medical History (Updated 11/14/22 @ 13:49 by Jt Spring MD) Abdominal pain Abdominal wound dehiscence Abnormal liver enzymes Achalasia and cardiospasm Acute respiratory insufficiency Adverse reaction to drug Anaphylaxis Bowel obstruction Chronic intestinal pseudo-obstruction If no mechanical obstruction, patient says cholinesterase inhibitors usually works Linzess is another possibility Octreotide has helped in children Chronic use of steroids for myasthenia gravis; 10+ years, she started using steroids in 2002. Chronic, continuous use of opioids Need to minimize or stop as they are confusing the bowel issue Constipation due to neurogenic bowel Constipation due to pain medication therapy Dehydration Diabetes mellitus type 2, uncontrolled Encounter for care related to Port-a-Cath Fecal impaction Foot sprain Hypercalcemia Hypersomnia Hypertension Hypocalcemia Hyponatremia Hypothyroidism Ileus Infiltrate of lung present on imaging of chest Intractable vomiting Lactic acid acidosis Low blood magnesium level Medicare annual wellness visit, initial Morbid obesity Myasthenia gravis Nausea Nausea & vomiting Obesity, Class II, BMI 35-39.9 Chronic. Obstruction of descending colon LA (obstructive sleep apnea) Pancreatitis Parastomal hernia with obstruction, without gangrene Partial intestinal obstruction, unspecified as to cause Partial small bowel obstruction Pneumonia Polyglandular autoimmune syndrome I see no dental or nail dystrophy to suggest Type 1 polyglandular failure which is the only type associated with HYPOPARATHYROIDISM and no autoimmune adrenalitis. I have not read that MG is a feature and it's not clear that her thyroid disease is autoimmune in nature. So I'm skeptical of this Dx Primary chronic pseudo-obstruction of large intestine Pseudoobstruction of colon Pyelonephritis Recurrent abdominal pain Recurrent intestinal obstruction many recurrences; many surgical interventions Recurrent UTI Sarcoidosis Said to be present due to "granuloma's on hands" Check RADHA level On steroids forever for her MG Sepsis Sepsis associated hypotension Sepsis with acute hypoxic respiratory failure Sigmoid volvulus Sinus tachycardia Small bowel obstruction due to adhesions Small bowel obstruction due to postoperative adhesions Small bowel obstruction, partial Supraventricular tachycardia UTI (urinary tract infection) Volvulus of sigmoid colon Surgical History History of cholecystectomy (~2000) History of exploratory laparotomy 10/17/2017-with adhesiolysis; 12/01/2017-with adhesiolysis; 07/18/2018; 08/10/2018-Exploratory laparotomy with small bowel adhesiolysis and incisiona l hernia repair with mesh graft; 11/30/2020-with total intraabdominal adhesiolysis History of meniscal tear (~2007) right knee History of removal of Port-a-Cath RETAINED portion of cath present on CXR 08/04 - multiple failed attempts at removal per pt report History of thymectomy (~2002) History of tonsillectomy S/P ileostomy Family History Father CAD (coronary artery disease) Mother CAD (coronary artery disease) Diabetes Grandfather CVA (cerebral vascular accident) HTN (hypertension) Paternal Grandmother CVA (cerebral vascular accident) Dementia Maternal HTN (hypertension) Paternal Bone cancer Maternal Cancer of back Paternal Aunt Diabetes Breast cancer Uncle Diabetes Brain cancer Social History marital status: smoking status: Never smoker alcohol intake frequency: does not drink substance use type: does not use MEDS/ALLERGIES Home Medications and Allergies Home Medications Medication Instructions Recorded Confirmed Type magnesium 500 mg tablet 1,000 mg PO QDAY 02/21/21 11/13/22 History apixaban 5 mg tablet (Eliquis) 5 mg PO BID #60 tabs 07/25/21 11/13/22 Rx insulin syringe-needle U-100 1 mL #100 ea 12/05/21 11/13/22 Rx 32 gauge x 5/16" pen needle, diabetic 32 gauge x #200 ea 12/07/21 11/13/22 Rx 5/32" (BD Ultra-Fine Concepcion Pen Needle) calcium 1,000 mg PO BID 02/01/22 11/13/22 History pyridostigmine bromide 60 mg tablet 60 mg PO QID #120 tabs 02/26/22 11/13/22 Rx duloxetine 30 mg capsule,delayed 30 mg PO BID #180 caps 04/12/22 11/13/22 Rx release gabapentin 300 mg capsule 300 mg PO QID 30 days #360 caps 04/12/22 11/13/22 Rx insulin lispro 100 unit/mL 1 sliding scale dose subcut TID 04/12/22 11/13/22 Rx subcutaneous pen (Humalog KwikPen #45 Syringes (U-100) Insulin) calcitriol 0.25 mcg capsule See Rx Instructions .Route 05/15/22 11/13/22 Rx .COMPLEX #15 caps blood sugar diagnostic (Contour #300 ea 06/14/22 11/13/22 Rx Next Test Strips) levothyroxine 200 mcg tablet 200 mcg PO QDAY #90 tabs 06/19/22 11/13/22 Rx famotidine 20 mg tablet 20 mg PO BID 07/20/22 11/13/22 History pantoprazole 20 mg tablet,delayed 20 mg PO QDAY 07/20/22 11/13/22 History release baclofen 10 mg tablet 10 mg PO TID 07/23/22 11/13/22 History insulin glargine 100 unit/mL (3 23 unit subcut QPM 08/09/22 11/13/22 History mL) subcutaneous pen (Lantus Solostar U-100 Insulin) prednisone 20 mg tablet 20 mg PO [facility] #90 tabs 09/11/22 11/13/22 Rx dulaglutide 1.5 mg/0.5 mL 1.5 mg (0.5 mL) subcut QWEEK #2 mL 09/21/22 11/13/22 Rx subcutaneous pen injector Allergies Allergy/AdvReac Type Severity Reaction Status Date / Time Sulfa (Sulfonamide Allergy Severe Anaphylaxis Verified 11/30/22 18:05 Antibiotics) adhesive tape AdvReac Mild Blister Verified 11/30/22 18:05 metoclopramide [From Reglan] AdvReac Mild Anxiety Verified 11/30/22 18:05 steri strips AdvReac Mild Blister Uncoded 09/21/22 08:47 EXAM Constitutional Vitals: Temp Pulse Resp BP Pulse Ox O2 Del Method 96.9 F L 84 13 136/82 94 Room Air 11/30/22 18:03 11/30/22 20:46 11/30/22 20:46 11/30/22 20:46 11/30/22 20:46 11/30/22 18:03 DATA Data Completed and Pending Labs: Labs from last 24 hours 11/30/22 11/30/22 11/30/22 19:25 18:58 18:56 WBC RBC Hgb Hct MCV MCH MCHC RDW Plt Count MPV Immature Gran % (Auto) Neut % (Auto) Lymph % (Auto) [place] % (Auto) Eos % (Auto) Baso % (Auto) Lymph # (Auto) [place] # (Auto) Eos # (Auto) Baso # (Auto) Immature Gran # Absolute Neutrophils POC VBG pH 7.27 L POC VBG pCO2 at Temp 46.3 POC VBG pO2 30 POC VBG HCO3 21.2 L POC VBG Total CO2 23.0 L POC Venous O2 Sat 48.0 POC VBG Base Excess -6.0 L VBG Lactic Acid 1.5 Sodium 131 L Potassium 4.7 Chloride 98 Carbon Dioxide 21 L Anion Gap 12.0 BUN 33 H Creatinine 1.1 GFR Calculation 54 Glucose 232 H Calcium 6.6 L Total Bilirubin 0.2 AST 31 ALT 70 H Alkaline Phosphatase 151 H Total Protein 6.4 Albumin 3.5 Globulin 2.9 Albumin/Globulin Ratio 1.2 Urine Color [place] Urine Appearance Cloudy A Urine pH 6.0 Ur Specific [place] 1.012 Urine Protein 100 A Urine Glucose (UA) Negative Urine Ketones Negative Urine Occult Blood >=1.0 A Urine Nitrate Negative Urine Bilirubin Negative Urine Urobilinogen Negative Ur Leukocyte Esterase 500 A Urine RBC > 182 H Urine WBC 136 H Ur Squamous Epith Cells 0 Urine Bacteria Many A Hyaline Casts 2 Urine Mucus Mod A Ur Culture Indicated? yes 11/30/22 18:56 WBC 19.5 H RBC 5.34 Hgb 14.5 Hct 45.1 H MCV 84.5 MCH 27.2 MCHC 32.2 RDW 16.2 H Plt Count 340 MPV 9.7 Immature Gran % (Auto) 1.6 H Neut % (Auto) 86.6 H Lymph % (Auto) 6.8 L [place] % (Auto) 4.6 Eos % (Auto) 0.1 Baso % (Auto) 0.3 Lymph # (Auto) 1.33 L [place] # (Auto) 0.89 Eos # (Auto) 0.02 Baso # (Auto) 0.06 Immature Gran # 0.31 H Absolute Neutrophils 16.93 H POC VBG pH POC VBG pCO2 at Temp POC VBG pO2 POC VBG HCO3 POC VBG Total CO2 POC Venous O2 Sat POC VBG Base Excess VBG Lactic Acid Sodium Potassium Chloride Carbon Dioxide Anion Gap BUN Creatinine GFR Calculation Glucose Calcium Total Bilirubin AST ALT Alkaline Phosphatase Total Protein Albumin Globulin Albumin/Globulin Ratio Urine Color Urine Appearance Urine pH Ur Specific [place] Urine Protein Urine Glucose (UA) Urine Ketones Urine Occult Blood Urine Nitrate Urine Bilirubin Urine Urobilinogen Ur Leukocyte Esterase Urine RBC Urine WBC Ur Squamous Epith Cells Urine Bacteria Hyaline Casts Urine Mucus Ur Culture Indicated? A/P Narrative A/P Narrative: Assessment and Plans: *UTI ( ) complicated: Recurrent, likely d/t morbid obesity and immobility *Sepsis: 2/2 above *Encephalopathy(confusion): improved in the ED with IVF *Generalized weakness/deconditioning/Debility: *T2DM w/neuropathy: -HgA1c 8.2 *h/o Myasthenia Gravis: on chronic prednisone and Pyridostigmine. Monitor *Volume depletion: *CKDIII: Avoid nephrotoxic agents *Metabolic acidosis: f/u *Hyponatremia/Hypocalcemia : *Hypothyroidism: Continue thyroid replacement therapy *Anemia, chronic: *History of recurrent SBO's: follows with Dr. Currie *Obesity: BMI 43 *h/o Multifocal PE: continuing apixaban *GERD: ppi P: -s/p IVF -Rocephin pending UC/BC -Monitor uop, fluid balance -Follow-up CBC and chemistry -Trend and replace electrolytes -cont home Prednisone/Pyridostigmine -basal and ssi -Home medication reconciliation -PT/OT -CM for placement needs -ppx: Eliquis Time Spent With Patient Time: Total time spent is greater than 50% in coordination of care (as documented) at patient's floor/unit and/or counseling patient: Initial: Total time with patient: 75 - 90 minutes
[2022-11-30] MEDS ORDERED: ACETAMINOPHEN 325 MG TABLET PO PRN (22:39)
[2022-11-30] MEDS ORDERED: DEXTROSE 50% 50 ML VIAL IV PRN (22:39)
[2022-11-30] MEDS ORDERED: MAGNESIUM SULFATE 2 GM/50 ML BAG IV PRN (22:39)
[2022-11-30] MEDS ORDERED: CALCIUM GLUCONATE 4.65 MEQ/10 ML VIAL IV ONE (22:39)
[2022-11-30] MEDS ORDERED: POTASSIUM CHLORIDE 40 MEQ in DEXTROSE 5% IN WATER 500 ML IV PRN (22:39)
[2022-11-30] MEDS ORDERED: POTASSIUM CHLORIDE 20 MEQ TABLET PO PRN ×2 (22:39)
[2022-11-30] MEDS ORDERED: POLYETHYLENE GLYCOL 3350 17 GM PACKET PO PRN (22:39)
[2022-11-30] MEDS ORDERED: SENNOSIDES 1 TABLET PO PRN (22:39)
[2022-11-30] MEDS ORDERED: IPRATROPIUM/ALBUTEROL 3 ML AMPUL.NEB NEB PRN (22:39)
[2022-11-30] MEDS ORDERED: cefTRIAXone 1 GM in DEXTROSE 5% IN WATER 50 ML IV SCH (22:39)
[2022-11-30] MEDS ORDERED: DEXTROSE 31 GM ORAL.SUSP PO PRN (22:39)
[2022-11-30] MEDS ORDERED: INSULIN LISPRO 1 UNIT/0.01 ML UNIT SQ ONE (22:45)
[2022-11-30] MEDS: 0.9 % SODIUM CHLORIDE 10 ML SYRINGE IV SCH (22:45)
[2022-11-30] MEDS: INSULIN LISPRO 1 UNIT/0.01 ML UNIT SQ SCH (22:46)
[2022-11-30] MEDS ORDERED: CALCIUM GLUCONATE 4.65 MEQ/10 ML VIAL ONE (22:49)
--- NOTE | 2022-12-01 03:34 | XRay Report ---
CLINICAL INFORMATION: Nausea and weakness. COMPARISON: None. TECHNIQUE: Portable FINDINGS: The heart size, mediastinum and pulmonary vessels are unremarkable. Port-A-Cath fragment remains is in stable position. The tip overlies the tricuspid valve. The lungs are clear. There are no effusions. Mild right diaphragm elevation appreciated The bones and soft tissues are within normal limits. IMPRESSION: Port-A-Cath fragment remains stable position, however the tip overlies the expected location of the tricuspid valve which could result in repetitive valve trauma. Suggest referral to interventional radiology for fragment retrieval. No acute cardiopulmonary disease Interpreted and Authenticated by: All Lundberg 12/01/22
[2022-12-01] MEDS: 0.9 % SODIUM CHLORIDE 10 ML SYRINGE IV SCH ×3 (05:51→20:21)
[2022-12-01 06:38] LABS: Basophils # (Auto) 0.05 K/mcL (0.00-0.30); Basophils % (Auto) 0.5 % (0.0-2.0); Eosinophils # (Auto) 0.11 K/mcL (0.00-0.70); Eosinophils % (Auto) 1.1 % (0.0-7.0); Hematocrit 38.8 % (34.1-44.9); Hemoglobin 12.1 g/dL (11.2-15.7); Lymphocytes # (Auto) 2.03 K/mcL (1.50-4.80); Lymphocytes % (Auto) 19.4 % (15.5-49.0); Mean Cell Volume 87.2 fL (80.0-100.0); Mean Corpuscular HGB Conc 31.2 g/dL (31.0-36.0); Mean Platelet Volume 9.7 fL (8.8-12.5); Monocytes # (Auto) 0.85 K/mcL (0.10-0.90); Monocytes % (Auto) 8.1 % (1.0-12.0); Neutrophils % (Auto) 68.7 % (38.0-78.0); Platelet Count 267 K/mcL (140-440); RBC 4.45 M/mcL (3.59-5.38); Red Cell Distribution Width 16.4 % (11.5-14.5); WBC 10.4 K/mcL (4.5-11.0)
[2022-12-01 06:47] LABS: ALT/SGPT 47 U/L (<40); AST/SGOT 16 U/L (<32); Albumin 2.6 gm/dL (3.2-5.2); Alkaline Phosphatase 109 U/L (39-117); Bilirubin,Direct < 0.2 mg/dL (0-0.3); Bilirubin,Total < 0.2 mg/dL (0.1-1.0); Blood Urea Nitrogen 25 mg/dL (6-20); Calcium 6.5 mg/dL (8.6-10.4); Carbon Dioxide 22 mmol/L (22-30); Chloride 104 mmol/L (96-108); Globulin 2.5 gm/dL (2.2-3.7); Glomerular Filtration Rate 80; Glucose 112 mg/dL (70-105); Lactate Dehydrogenase 200 U/L (135-225); Phosphorous 2.7 mg/dL (2.5-4.5); Triglycerides 222 mg/dL (<150); Uric Acid 3.3 mg/dL (2.5-8.0)
[2022-12-01] MEDS ORDERED: CALCIUM GLUCONATE 4.65 MEQ/10 ML VIAL IV ONE (07:26)
--- NOTE | 2022-12-01 07:29 | Internal Med Progress Note ---
SUBJECTIVE Subjective Patient information: Note initiated : 12/01/22 at 7:24 am Service Date, if different from initiated Date: [] Patient: Dayanna Guo a 61 y/o F admitted on 11/30/22 for nausea. Chief Complaint: [] Interval history: History of present illness: Ms. Guo is a 61 year old F Presents today with confusion weakness dysuria. She was recently admitted here on November 12 and discharged on November 20 for UTI sepsis with E. coli. She was discharged to nursing home facility. She presents now for similar symptoms and work-up in the ED positive for UTI sepsis. This is most likely a hygiene issue given her morbid obesity and immobility. She has had some nausea and has vomited twice but that has resolved and she does not have any of her bowel obstruction symptoms that she has had in the past including no abdominal pain. Patient denies fever chills but complains of headache dizziness weakness dysuria and foul smelling urine. Patient says she has been incontinent for the past few weeks at least. And she was found to be incontinent today. Patient was mildly tachycardic in the ED. She had a leukocytosis of 19,000. She was hypokalemic at 6.6. Mild hyponatremia at 131. BUN 33 creatinine 1.1. Urine was consistent with signs of infection. 12/01 Patient feels dizzy at times. Patient states she is slept okay, not great but better than she has before in the hospital. Patient states she occasionally sees cobwebs when she closes her eyes, same complaints when she was here last time. Occasional headache. Leukocytosis improving. Home meds clarified and restarting. Calcium low and will replete. Hypertriglyceridemia. Review of Systems: denies fever/chills/nausea/vomiting/chest or abdominal pain/cough/dyspn ea/diarrhea. Otherwise see above. PHYSICAL EXAM: General: Alert, Awake, No acute Distress, obese Eyes/N/T: EOMI, no scleral icterus, Head/Neck: neck supple, full ROM, CV: RRR, No murmurs, Pulm: Clear b/l, no wheezing/rhonchi/rales, no respiratory distress Abd: soft, nontender, +BS x4, ostomy Ext: no clubbing/cyanosis/edema, nontender Neuro: Alert, no focal deficits, moves all extremities, sensations intact b/l upper/lower Psychiatric: Skin: warm/dry, normal color Constitutional Vitals: Vital Signs Temp Pulse Resp BP Pulse Ox O2 Del Method 97.1 F 91 H 16 110/64 94 Room Air 12/01/22 04:55 12/01/22 04:55 12/01/22 04:55 12/01/22 04:55 12/01/22 04:55 12/01/22 04:55 Period Temp Pulse Resp BP Sys/[place] Pulse Ox O2 Del Method O2 Flow Rate Last 24 Hr 96.9 F-97.1 F 84-107 13-20 110-170/64-122 94-96 Room Air-Room Air Intake and Output 11/30/22 12/01/22 12/01/22 19:59 03:59 11:59 Intake Total 2770 240 Output Total 550 725 Balance 2220 -485 Weight 112.491 kg 114.714 kg Intake & Output: Intake & Output 11/30/22 12/01/22 12/01/22 19:59 03:59 11:59 Intake Total 2770 240 Output Total 550 725 Balance 2220 -485 Weight 112.491 kg 114.714 kg Intake: IV 2050 Sodium Chloride 0.9% 1,000 ml @ 2000 Wide Open IV BOLUS ONE Rx#: [id number] Rocephin 2 gm In Dextrose 5% in 50 Water 50 ml @ 100 mls/hr IV ONCE ONE Rx#:[id number] Oral 720 240 Output: Void Amount 725 Stool 550 Other: Urine Appearance Cloudy Cloudy Uretheral (Martinez) Cloudy Cloudy Purulent Urine Color Dark Yellow Dark Shwetha Brown Uretheral (Martinez) Dark Yellow Dark Yellow Brown Brown Urine Odor Foul Foul Uretheral (Martinez) Foul Stool Color Brown Green Stool Consistency Liquid Loose OBJ DATA Labs 12/01/22 05:30 12/01/22 05:29 Labs: Abnormal Lab Results 12/01/22 12/01/22 11/30/22 05:30 05:29 19:25 WBC Hct RDW 16.4 H Immature Gran % (Auto) 2.2 H Neut % (Auto) Lymph % (Auto) Lymph # (Auto) Immature Gran # 0.23 H Absolute Neutrophils POC VBG pH POC VBG HCO3 POC VBG Total CO2 POC VBG Base Excess Sodium Carbon Dioxide BUN 25 H Glucose 112 H Calcium 6.5 L ALT 47 H Alkaline Phosphatase Total Protein 5.1 L Albumin 2.6 L Triglycerides 222 H Urine Appearance Cloudy A Urine Protein 100 A Urine Occult Blood >=1.0 A Ur Leukocyte Esterase 500 A Urine RBC > 182 H Urine WBC 136 H Urine Bacteria Many A Urine Mucus Mod A 11/30/22 11/30/22 11/30/22 18:58 18:56 18:56 WBC 19.5 H Hct 45.1 H RDW 16.2 H Immature Gran % (Auto) 1.6 H Neut % (Auto) 86.6 H Lymph % (Auto) 6.8 L Lymph # (Auto) 1.33 L Immature Gran # 0.31 H Absolute Neutrophils 16.93 H POC VBG pH 7.27 L POC VBG HCO3 21.2 L POC VBG Total CO2 23.0 L POC VBG Base Excess -6.0 L Sodium 131 L Carbon Dioxide 21 L BUN 33 H Glucose 232 H Calcium 6.6 L ALT 70 H Alkaline Phosphatase 151 H Total Protein Albumin Triglycerides Urine Appearance Urine Protein Urine Occult Blood Ur Leukocyte Esterase Urine RBC Urine WBC Urine Bacteria Urine Mucus Meds: Medications Acetaminophen (Acetaminophen 325 Mg Tablet) 650 mg PO Q6HP PRN; Protocol PRN Reason: Per Pain Protocol/Fever > 101 Albuterol/Ipratropium (Ipratropium/Albuterol 3 Ml Ampul.Neb) 3 ml NEB Q4HP PRN PRN Reason: Shortness Of Breath Calcium Gluconate (Calcium Gluconate 4.65 Meq/10 Ml Vial) 9.3 meq IV ONCE ONE Stop: 11/30/22 22:40 Last Admin: 11/30/22 23:04 Dose: 9.3 meq Dextrose (Dextrose 50% 50 Ml Vial) 0 ml IV UD PRN PRN Reason: Per Sliding Scale Diagnostic Test (Pha) (Accu-Chek 1 Each Strip) 1 each FS ACHS MALENA Last Admin: 11/30/22 22:40 Dose: 1 each Docusate Sodium (Docusate Sodium 100 Mg Capsule) 100 mg PO BID MAL[place] Glucose (Dextrose 31 Gm Oral.Susp) 15 gm PO PRN PRN PRN Reason: Hypoglycemia Potassium Chloride 40 meq/ (Dextrose) 520 mls @ 130 mls/hr IV UD PRN PRN Reason: Potassium < 3 Magnesium Sulfate (Magnesium Sulfate) 2 gm in 50 mls @ 50 mls/hr IV UD PRN PRN Reason: Magnesium </= 1.6 Ceftriaxone Sodium 1 gm/ (Dextrose) 50 mls @ 100 mls/hr IV Q24H [facility]; Protocol Last Admin: 11/30/22 22:44 Dose: Not Given Insulin Human Lispro (Insulin Lispro 1 Unit/0.01 Ml Unit) 0 unit SQ ACHS MALENA; Protocol Last Admin: 11/30/22 22:46 Dose: 4 units Ondansetron HCl (Ondansetron 4 Mg/2 Ml Vial) 4 mg IV Q4HP PRN PRN Reason: Nausea And Vomiting Polyethylene Glycol (Polyethylene Glycol 3350 17 Gm Packet) 17 gm PO DAILYP PRN PRN Reason: Constipation Potassium Chloride (Potassium Chloride 20 Meq Tablet) 40 meq PO UD PRN PRN Reason: Potssium is 3-3.5 Potassium Chloride (Potassium Chloride 20 Meq Tablet) 40 meq PO UD PRN PRN Reason: Potassium < 3 Senna (Sennosides 1 Tablet) 2 tab PO DAILYP PRN PRN Reason: Constipation Sodium Chloride (0.9 % Sodium Chloride 10 Ml Syringe) 10 ml IV Q8 [facility] Last Admin: 12/01/22 05:51 Dose: 10 ml A/P Narrative A/P Narrative: A: *UTI ( ) complicated: Recurrent, likely d/t morbid obesity and immobility *Sepsis: 2/2 above -leukocytosis improving *Encephalopathy(confusion): improved in the ED with IVF *Generalized weakness/deconditioning/Debility: *T2DM w/neuropathy: -HgA1c 8.2 *h/o Myasthenia Gravis: on chronic prednisone and Pyridostigmine. Monitor *Volume depletion: *CKDIII: Avoid nephrotoxic agents *Metabolic acidosis: f/u *Hyponatremia/Hypocalcemia: *Hypothyroidism: Continue thyroid replacement therapy *Anemia, chronic: *History of recurrent SBO's: follows with Dr. Currie *Obesity: BMI 43 *h/o Multifocal PE: continuing apixaban *GERD: h2 P: -s/p IVF -Rocephin pending UC/BC -Monitor uop, fluid balance -Follow-up CBC and chemistry -Trend and replace electrolytes, ca -cont home Prednisone/Pyridostigmine -cont home baclofen/arsenio/levo -basal and ssi -PT/OT -CM for placement needs -ppx: Eliquis / home H2 Time Spent With Patient Time: Total time spent is greater than 50% in coordination of care (as documented) at patient's floor/unit and/or counseling patient: Subsequent: Total time with patient: 50 - 65 Minutes QUALITY VTE Deep Vein Thrombosis/Pulmonary Embolism Present on Admission: No
[2022-12-01] MEDS: INSULIN LISPRO 1 UNIT/0.01 ML UNIT SQ SCH ×4 (07:55→20:19)
[2022-12-01] MEDS ORDERED: CALCIUM GLUCONATE 9.3 MEQ in DEXTROSE 5% IN WATER 50 ML IV ONE (08:00)
[2022-12-01] MEDS: cefTRIAXone 1 GM VIAL IV SCH (09:03)
[2022-12-01] MEDS: PYRIDOSTIGMINE 60 MG TABLET PO SCH ×4 (09:03→20:20)
[2022-12-01] MEDS: DULoxetine 30 MG CAPSULE PO SCH ×2 (09:04→20:20)
[2022-12-01] MEDS: LEVOTHYROXINE 100 MCG TABLET PO SCH (09:04)
[2022-12-01] MEDS: MAGNESIUM OXIDE 400 MG TABLET PO SCH (09:04)
[2022-12-01] MEDS: GABAPENTIN 300 MG CAPSULE PO SCH ×4 (09:04→20:20)
[2022-12-01] MEDS: APIXABAN 5 MG TABLET PO SCH ×2 (09:04→20:20)
[2022-12-01] MEDS: DOCUSATE SODIUM 100 MG CAPSULE PO SCH ×3 (09:04→19:49)
[2022-12-01] MEDS: CALCITRIOL 0.25 MCG CAPSULE PO SCH (09:04)
[2022-12-01] MEDS: CALCIUM (OYSTER SHELL) 500 MG TABLET PO SCH ×2 (09:05→20:20)
[2022-12-01] MEDS: FAMOTIDINE 20 MG TABLET PO SCH ×2 (09:05→20:20)
[2022-12-01] MEDS: predniSONE 20 MG TABLET PO SCH (09:05)
[2022-12-01] MEDS: BACLOFEN 10 MG TABLET PO SCH ×3 (09:05→20:21)
[2022-12-01] MEDS: ONDANSETRON 4 MG/2 ML VIAL IV PRN ×2 (14:09→22:28)
[2022-12-01] MEDS ORDERED: diphenhydrAMINE 50 MG/ML VIAL IV PRN (23:18)
[2022-12-01] MEDS ORDERED: PROMETHAZINE 25 MG/ML VIAL ONE (23:24)
[2022-12-01] MEDS ORDERED: diphenhydrAMINE 50 MG/ML VIAL ONE (23:24)
[2022-12-01] MEDS: PROMETHAZINE 25 MG/ML VIAL IV PRN (23:33)
[2022-12-02] MEDS: 0.9 % SODIUM CHLORIDE 10 ML SYRINGE IV SCH ×3 (04:07→20:41)
[2022-12-02] MEDS: ONDANSETRON 4 MG/2 ML VIAL IV PRN (04:07)
[2022-12-02 06:29] LABS: Blood Urea Nitrogen 25 mg/dL (6-20); Calcium 8.1 mg/dL (8.6-10.4); Carbon Dioxide 23 mmol/L (22-30); Chloride 98 mmol/L (96-108); Glomerular Filtration Rate 61; Glucose 196 mg/dL (70-105)
[2022-12-02] MEDS ORDERED: PROMETHAZINE 25 MG/ML VIAL ONE (06:56)
[2022-12-02] MEDS: PROMETHAZINE 25 MG/ML VIAL IV PRN (06:58)
[2022-12-02] MEDS: predniSONE 20 MG TABLET PO SCH (07:47)
[2022-12-02] MEDS: LEVOTHYROXINE 100 MCG TABLET PO SCH (07:47)
[2022-12-02] MEDS: INSULIN LISPRO 1 UNIT/0.01 ML UNIT SQ SCH ×4 (07:47→20:39)
--- NOTE | 2022-12-02 07:47 | Internal Med Progress Note ---
SUBJECTIVE Subjective Patient information: Note initiated : 12/02/22 at 7:42 am Service Date, if different from initiated Date: [] Patient: Dayanna Guo a 61 y/o F admitted on 11/30/22 for nausea. Chief Complaint: [] Interval history: History of present illness: Ms. Guo is a 61 year old F Presents today with confusion weakness dysuria. She was recently admitted here on November 12 and discharged on November 20 for UTI sepsis with E. coli. She was discharged to shelter facility. She presents now for similar symptoms and work-up in the ED positive for UTI sepsis. This is most likely a hygiene issue given her morbid obesity and immobility. She has had some nausea and has vomited twice but that has resolved and she does not have any of her bowel obstruction symptoms that she has had in the past including no abdominal pain. Patient denies fever chills but complains of headache dizziness weakness dysuria and foul smelling urine. Patient says she has been incontinent for the past few weeks at least. And she was found to be incontinent today. Patient was mildly tachycardic in the ED. She had a leukocytosis of 19,000. She was hypokalemic at 6.6. Mild hyponatremia at 131. BUN 33 creatinine 1.1. Urine was consistent with signs of infection. 12/01 Patient feels dizzy at times. Patient states she is slept okay, not great but better than she has before in the hospital. Patient states she occasionally sees cobwebs when she closes her eyes, same complaints when she was here last time. Occasional headache. Leukocytosis improving. Home meds clarified and restarting. Calcium low and will replete. Hypertriglyceridemia. 12/02 She complains of poor sleep. Nausea but no vomiting. Sodium improved. Calcium improving with supplementation. Monitor for bowel obstruction as is common with her. Good ostomy output at this time. Review of Systems: denies fever/chills/vomiting/chest or abdominal pain/cough/dyspnea/diarrhea. Otherwise see above. PHYSICAL EXAM: General: Alert, Awake, No acute Distress, obese Eyes/N/T: EOMI, no scleral icterus, Head/Neck: neck supple, full ROM, CV: RRR, No murmurs, Pulm: Clear b/l, no wheezing/rhonchi/rales, no respiratory distress Abd: soft, nontender, +BS x4, ostomy Ext: no clubbing/cyanosis/edema, nontender Neuro: Alert, no focal deficits, moves all extremities, sensations intact b/l upper/lower Psychiatric: Skin: warm/dry, normal color Constitutional Vitals: Vital Signs Temp Pulse Resp BP Pulse Ox O2 Del Method 97.4 F 108 H 18 140/108 94 Room Air 12/02/22 06:47 12/02/22 06:47 12/02/22 06:47 12/02/22 06:47 12/02/22 06:47 12/02/22 06:47 Period Temp Pulse Resp BP Sys/Archuleta Pulse Ox O2 Del Method O2 Flow Rate Last 24 Hr 97 F-97.8 F 88-127 14-18 102-155/64-108 93-96 Room Air-Room Air Intake and Output 12/01/22 12/02/22 12/02/22 19:59 03:59 11:59 Intake Total 1110 600 Output Total 5600 771 8860 Balance -190 -100 -1600 Weight 114.714 kg 115.258 kg Intake & Output: Intake & Output 12/01/22 12/02/22 12/02/22 19:59 03:59 11:59 Intake Total 1110 600 Output Total 9304 293 4310 Balance -190 -100 -1600 Weight 114.714 kg 115.258 kg Intake: IV 70 Calcium Gluconate 9.3 Meq In 70 Dextrose 5% in Water 50 ml @ 70 mls/hr IV ONCE ONE Rx#: [id number] Oral 240 600 GI Tube Flush 800 Output: Urine Catheter Amount 1000 Void Amount 850 Stool 300 700 750 Other: Meal Dinner Percent of Meal Consumed 100% Feeding Ability Independent Urine Appearance Clear Clear Clear Uretheral (Martinez) Clear Urine Color Dark Yellow Bright Yellow Yellow Uretheral (Martinez) Bright Yellow Urine Odor Strong Normal Normal Uretheral (Martinez) Normal Stool Size Large Large Stool Color Brown Brown Brown Yellow Yellow Green Green Stool Consistency Loose Liquid Liquid Loose OBJ DATA Labs 12/01/22 05:30 12/02/22 05:19 Labs: Abnormal Lab Results 12/02/22 12/01/22 12/01/22 05:19 05:30 05:29 WBC Hct RDW 16.4 H Immature Gran % (Auto) 2.2 H Neut % (Auto) Lymph % (Auto) Lymph # (Auto) Immature Gran # 0.23 H Absolute Neutrophils POC VBG pH POC VBG HCO3 POC VBG Total CO2 POC VBG Base Excess Sodium Carbon Dioxide BUN 25 H 25 H Glucose 196 H 112 H Calcium 8.1 L 6.5 L ALT 47 H Alkaline Phosphatase Total Protein 5.1 L Albumin 2.6 L Triglycerides 222 H Urine Appearance Urine Protein Urine Occult Blood Ur Leukocyte Esterase Urine RBC Urine WBC Urine Bacteria Urine Mucus 11/30/22 11/30/22 11/30/22 19:25 18:58 18:56 WBC Hct RDW Immature Gran % (Auto) Neut % (Auto) Lymph % (Auto) Lymph # (Auto) Immature Gran # Absolute Neutrophils POC VBG pH 7.27 L POC VBG HCO3 21.2 L POC VBG Total CO2 23.0 L POC VBG Base Excess -6.0 L Sodium 131 L Carbon Dioxide 21 L BUN 33 H Glucose 232 H Calcium 6.6 L ALT 70 H Alkaline Phosphatase 151 H Total Protein Albumin Triglycerides Urine Appearance Cloudy A Urine Protein 100 A Urine Occult Blood >=1.0 A Ur Leukocyte Esterase 500 A Urine RBC > 182 H Urine WBC 136 H Urine Bacteria Many A Urine Mucus Mod A 11/30/22 18:56 WBC 19.5 H Hct 45.1 H RDW 16.2 H Immature Gran % (Auto) 1.6 H Neut % (Auto) 86.6 H Lymph % (Auto) 6.8 L Lymph # (Auto) 1.33 L Immature Gran # 0.31 H Absolute Neutrophils 16.93 H POC VBG pH POC VBG HCO3 POC VBG Total CO2 POC VBG Base Excess Sodium Carbon Dioxide BUN Glucose Calcium ALT Alkaline Phosphatase Total Protein Albumin Triglycerides Urine Appearance Urine Protein Urine Occult Blood Ur Leukocyte Esterase Urine RBC Urine WBC Urine Bacteria Urine Mucus Meds: Medications Acetaminophen (Acetaminophen 325 Mg Tablet) 650 mg PO Q6HP PRN; Protocol PRN Reason: Per Pain Protocol/Fever > 101 Albuterol/Ipratropium (Ipratropium/Albuterol 3 Ml Ampul.Neb) 3 ml NEB Q4HP PRN PRN Reason: Shortness Of Breath Apixaban (Apixaban 5 Mg Tablet) 5 mg PO BID COUNT INCLUDES THE [facility] Last Admin: 12/01/22 20:20 Dose: 5 mg Baclofen (Baclofen 10 Mg Tablet) 10 mg PO TID COUNT INCLUDES THE [facility] Last Admin: 12/01/22 20:21 Dose: 10 mg Calcitriol (Calcitriol 0.25 Mcg Capsule) 0.25 mcg PO TuThSa@0900 COUNT INCLUDES THE [facility] Last Admin: 12/01/22 09:04 Dose: 0.25 mcg Calcium Carbonate/Glycine (Calcium (Oyster Shell) 500 Mg Tablet) 1,000 mg PO BID COUNT INCLUDES THE [facility] Last Admin: 12/01/22 20:20 Dose: 1,000 mg Ceftriaxone Sodium (Ceftriaxone 1 Gm Vial) 1 gm IV Q24H COUNT INCLUDES THE [facility] Last Admin: 12/01/22 09:03 Dose: 1 gm Dextrose (Dextrose 50% 50 Ml Vial) 0 ml IV UD PRN PRN Reason: Per Sliding Scale Diagnostic Test (Pha) (Accu-Chek 1 Each Strip) 1 each FS ACHS COUNT INCLUDES THE [facility] Last Admin: 12/02/22 07:01 Dose: 1 each Diphenhydramine HCl (Diphenhydramine 50 Mg/Ml Vial) 25 mg IV Q6HP PRN PRN Reason: Allergic Symptoms Last Admin: 12/01/22 23:33 Dose: 25 mg Docusate Sodium (Docusate Sodium 100 Mg Capsule) 100 mg PO BID COUNT INCLUDES THE [facility] Last Admin: 12/01/22 19:49 Dose: Not Given Duloxetine HCl (Duloxetine 30 Mg Capsule) 30 mg PO BID COUNT INCLUDES THE [facility] Last Admin: 12/01/22 20:20 Dose: 30 mg Famotidine (Famotidine 20 Mg Tablet) 20 mg PO BID COUNT INCLUDES THE [facility] Last Admin: 12/01/22 20:20 Dose: 20 mg Gabapentin (Gabapentin 300 Mg Capsule) 300 mg PO QID COUNT INCLUDES THE [facility] Last Admin: 12/01/22 20:20 Dose: 300 mg Glucose (Dextrose 31 Gm Oral.Susp) 15 gm PO PRN PRN PRN Reason: Hypoglycemia Potassium Chloride 40 meq/ (Dextrose) 520 mls @ 130 mls/hr IV UD PRN PRN Reason: Potassium < 3 Magnesium Sulfate (Magnesium Sulfate) 2 gm in 50 mls @ 50 mls/hr IV UD PRN PRN Reason: Magnesium </= 1.6 Insulin Human Lispro (Insulin Lispro 1 Unit/0.01 Ml Unit) 0 unit SQ [facility] COUNT INCLUDES THE [facility]; Protocol Last Admin: 12/01/22 20:19 Dose: 6 units Levothyroxine Sodium (Levothyroxine 100 Mcg Tablet) 200 mcg PO ACB COUNT INCLUDES THE [facility] Last Admin: 12/01/22 09:04 Dose: 200 mcg Magnesium Oxide (Magnesium Oxide 400 Mg Tablet) 800 mg PO DAILY COUNT INCLUDES THE [facility] Last Admin: 12/01/22 09:04 Dose: 800 mg Ondansetron HCl (Ondansetron 4 Mg/2 Ml Vial) 4 mg IV Q4HP PRN PRN Reason: Nausea And Vomiting Last Admin: 12/02/22 04:07 Dose: 4 mg Polyethylene Glycol (Polyethylene Glycol 3350 17 Gm Packet) 17 gm PO DAILYP PRN PRN Reason: Constipation Potassium Chloride (Potassium Chloride 20 Meq Tablet) 40 meq PO UD PRN PRN Reason: Potssium is 3-3.5 Potassium Chloride (Potassium Chloride 20 Meq Tablet) 40 meq PO UD PRN PRN Reason: Potassium < 3 Prednisone (Prednisone 20 Mg Tablet) 20 mg PO [facility] Last Admin: 12/01/22 09:05 Dose: 20 mg Promethazine HCl (Promethazine 25 Mg/Ml Vial) 25 mg IV Q6HP PRN PRN Reason: Nausea And Vomiting Last Admin: 12/02/22 06:58 Dose: 25 mg Pyridostigmine [place] (Pyridostigmine 60 Mg Tablet) 60 mg PO QID COUNT INCLUDES THE [facility] Last Admin: 12/01/22 20:20 Dose: 60 mg Senna (Sennosides 1 Tablet) 2 tab PO DAILYP PRN PRN Reason: Constipation Sodium Chloride (0.9 % Sodium Chloride 10 Ml Syringe) 10 ml IV Q8 COUNT INCLUDES THE [facility] Last Admin: 12/02/22 04:07 Dose: 10 ml A/P Narrative A/P Narrative: A: *UTI ( ) complicated: Recurrent, likely d/t hygiene issues from morbid obesity and immobility *Sepsis: 2/2 above -leukocytosis improved, tachycardia *Encephalopathy(confusion): improved in the ED with IVF *Generalized weakness/deconditioning/Debility: *T2DM w/neuropathy: -HgA1c 8.2 *h/o Myasthenia Gravis: on chronic prednisone and Pyridostigmine. Monitor *Volume depletion: improved *CKDIII: Avoid nephrotoxic agents *Metabolic acidosis: f/u *Hyponatremia/Hypocalcemia: improving *Hypothyroidism: Continue thyroid replacement therapy *Anemia, chronic: *History of recurrent SBO's: follows with Dr. Currie *Obesity: BMI 43 *h/o Multifocal PE: continuing apixaban *GERD: h2 P: -Rocephin pending UC/BC -bed repositioning to avoid pressure injuries -Monitor uop, fluid balance -Follow-up CBC and chemistry -Trend and replace electrolytes, ca -cont home Prednisone/Pyridostigmine -cont home baclofen/arsenio/levo -basal and ssi -PT/OT -CM for placement needs -ppx: Eliquis / home H2 Time Spent With Patient Time: Total time spent is greater than 50% in coordination of care (as documented) at patient's floor/unit and/or counseling patient: Subsequent: Total time with patient: 50 - 65 Minutes QUALITY VTE Deep Vein Thrombosis/Pulmonary Embolism Present on Admission: No
[2022-12-02] MEDS: DOCUSATE SODIUM 100 MG CAPSULE PO SCH ×2 (10:13→20:40)
[2022-12-02] MEDS: DULoxetine 30 MG CAPSULE PO SCH ×2 (10:13→20:41)
[2022-12-02] MEDS: CALCIUM (OYSTER SHELL) 500 MG TABLET PO SCH ×2 (10:14→20:40)
[2022-12-02] MEDS: PYRIDOSTIGMINE 60 MG TABLET PO SCH ×4 (10:14→23:36)
[2022-12-02] MEDS: APIXABAN 5 MG TABLET PO SCH ×2 (10:14→20:41)
[2022-12-02] MEDS: BACLOFEN 10 MG TABLET PO SCH ×3 (10:14→19:53)
[2022-12-02] MEDS: FAMOTIDINE 20 MG TABLET PO SCH ×2 (10:14→20:41)
[2022-12-02] MEDS: MAGNESIUM OXIDE 400 MG TABLET PO SCH (10:14)
[2022-12-02] MEDS: GABAPENTIN 300 MG CAPSULE PO SCH ×4 (10:14→20:40)
[2022-12-02] MEDS: cefTRIAXone 1 GM VIAL IV SCH (10:36)
[2022-12-02] MEDS: LINEZOLID 600 MG TABLET PO SCH ×2 (12:01→20:40)
[2022-12-03] MEDS: BACLOFEN 10 MG TABLET PO SCH ×3 (03:00→17:31)
[2022-12-03] MEDS: PYRIDOSTIGMINE 60 MG TABLET PO SCH ×3 (05:46→17:32)
[2022-12-03] MEDS: 0.9 % SODIUM CHLORIDE 10 ML SYRINGE IV SCH ×3 (05:46→21:05)
[2022-12-03 07:20] LABS: Basophils # (Auto) 0.06 K/mcL (0.00-0.30); Basophils % (Auto) 0.7 % (0.0-2.0); Eosinophils # (Auto) 0.07 K/mcL (0.00-0.70); Eosinophils % (Auto) 0.8 % (0.0-7.0); Hemoglobin 12.4 g/dL (11.2-15.7); Lymphocytes # (Auto) 1.75 K/mcL (1.50-4.80); Lymphocytes % (Auto) 20.3 % (15.5-49.0); Mean Cell Volume 87.5 fL (80.0-100.0); Mean Platelet Volume 9.9 fL (8.8-12.5); Monocytes # (Auto) 0.61 K/mcL (0.10-0.90); Monocytes % (Auto) 7.1 % (1.0-12.0); Neutrophils % (Auto) 68.2 % (38.0-78.0); Platelet Count 294 K/mcL (140-440); RBC 4.57 M/mcL (3.59-5.38); Red Cell Distribution Width 16.9 % (11.5-14.5); WBC 8.6 K/mcL (4.5-11.0)
[2022-12-03] MEDS: predniSONE 20 MG TABLET PO SCH (07:40)
[2022-12-03] MEDS: LEVOTHYROXINE 100 MCG TABLET PO SCH (07:41)
[2022-12-03] MEDS: INSULIN LISPRO 1 UNIT/0.01 ML UNIT SQ SCH ×4 (07:41→21:05)
[2022-12-03 08:55] LABS: ALT/SGPT 97 U/L (<40); AST/SGOT 37 U/L (<32); Albumin 2.7 gm/dL (3.2-5.2); Alkaline Phosphatase 118 U/L (39-117); Bilirubin,Total < 0.2 mg/dL (0.1-1.0); Blood Urea Nitrogen 26 mg/dL (6-20); Calcium 7.1 mg/dL (8.6-10.4); Carbon Dioxide 22 mmol/L (22-30); Chloride 102 mmol/L (96-108); Globulin 2.8 gm/dL (2.2-3.7); Glomerular Filtration Rate 80; Glucose 152 mg/dL (70-105)
[2022-12-03] MEDS: cefTRIAXone 1 GM VIAL IV SCH (09:04)
[2022-12-03] MEDS: MAGNESIUM OXIDE 400 MG TABLET PO SCH (09:05)
[2022-12-03] MEDS: LINEZOLID 600 MG TABLET PO SCH ×2 (09:05→20:35)
[2022-12-03] MEDS: GABAPENTIN 300 MG CAPSULE PO SCH ×4 (09:05→20:32)
[2022-12-03] MEDS: FAMOTIDINE 20 MG TABLET PO SCH ×2 (09:05→20:35)
[2022-12-03] MEDS: DOCUSATE SODIUM 100 MG CAPSULE PO SCH ×2 (09:05→20:49)
[2022-12-03] MEDS: CALCIUM (OYSTER SHELL) 500 MG TABLET PO SCH ×2 (09:05→20:35)
[2022-12-03] MEDS: APIXABAN 5 MG TABLET PO SCH ×2 (09:05→20:33)
[2022-12-03] MEDS: DULoxetine 30 MG CAPSULE PO SCH ×2 (09:06→20:35)
--- NOTE | 2022-12-03 15:13 | Internal Med Progress Note ---
SUBJECTIVE Subjective Patient information: Note initiated : 12/03/22 at 3:06 pm Service Date, if different from initiated Date: [] Patient: Dayanna Guo a 61 y/o F admitted on 11/30/22 for nausea. Chief Complaint: [] Interval history: Ms. Guo is a 61 year old F Presents today with confusion weakness dysuria. She was recently admitted here on November 12 and discharged on November 20 for UTI sepsis with E. coli. She was discharged to shelter facility. She presents now for similar symptoms and work-up in the ED positive for UTI sepsis. This is most likely a hygiene issue given her morbid obesity and immobility. She has had some nausea and has vomited twice but that has resolved and she does not have any of her bowel obstruction symptoms that she has had in the past including no abdominal pain. Patient denies fever chills but complains of headache dizziness weakness dysuria and foul smelling urine. Patient says she has been incontinent for the past few weeks at least. And she was found to be incontinent today. Patient was mildly tachycardic in the ED. She had a leukocytosis of 19,000. She was hypokalemic at 6.6. Mild hyponatremia at 131. BUN 33 creatinine 1.1. Urine was consistent with signs of infection. 12/01 Patient feels dizzy at times. Patient states she is slept okay, not great but better than she has before in the hospital. Patient states she occasionally sees cobwebs when she closes her eyes, same complaints when she was here last time. Occasional headache. Leukocytosis improving. Home meds clarified and restarting. Calcium low and will replete. Hypertriglyceridemia. 12/02 She complains of poor sleep. Nausea but no vomiting. Sodium improved. Calcium improving with supplementation. Monitor for bowel obstruction as is common with her. Good ostomy output at this time. 12/03: Afebrile overnight. WBC 8.6. Urine culture grew E coli and enterococcus. Day 3 Rocephin and Zyvox. Will switch to Levaquin 500mg PO daily for 4 additional days starting tomorrow. d/c Martinez catheter. Clinically ready to be discharged. Awaiting pre-authorization from SNF to discharge. Constitutional Vitals: Vital Signs Temp Pulse Resp BP Pulse Ox O2 Del Method 37.0 C 99 H 18 104/82 93 Room Air 12/03/22 12:00 12/03/22 12:00 12/03/22 12:00 12/03/22 12:00 12/03/22 12:00 12/03/22 12:00 Period Temp Pulse Resp BP Sys/Archuleta Pulse Ox O2 Del Method O2 Flow Rate Last 24 Hr 36.2 C-37.0 C 80-99 14-18 104-119/67-92 90-96 Room Air-Room Air Intake and Output 12/03/22 12/03/22 12/03/22 03:59 11:59 19:59 Intake Total 1180 1200 Output Total 1025 1300 Balance 155 -100 Weight 114.215 kg Intake & Output: Intake & Output 12/03/22 12/03/22 12/03/22 03:59 11:59 19:59 Intake Total 1180 1200 Output Total 1025 1300 Balance 155 -100 Weight 114.215 kg Intake: Oral 1180 720 GI Tube Flush 480 Output: Urine Catheter Amount 400 300 Stool 625 1000 Other: Meal broth Lunch Percent of Meal Consumed 100% 100% Feeding Ability Independent Independent Urine Appearance Clear Clear Uretheral (Martinez) Clear Urine Color Dark Yellow Dark Yellow Uretheral (Martinez) Light Shwetha Urine Odor Normal Stool Size Large Stool Color Brown Brown Yellow Green Stool Consistency Watery Normal for Patient Loose Watery Loose # Bowel Movements 1 Head Head exam: Present atraumatic and normal inspection Eye Eye exam: Present normal appearance ENT ENT exam: Present mucous membranes moist, normal exam and normal external ear exam Neck Neck exam: Present normal inspection Respiratory Respiratory exam: Present normal respiratory exam Cardiovascular Cardiovascular exam: Present normal rate and rhythm GI/Abdominal GI/Abdominal exam: Present normal bowel sounds Back Exam Back exam: Present normal inspection Neurological Exam Neurological exam: Present alert and oriented X3 Skin Skin exam: Present intact and warm OBJ DATA Labs 12/03/22 05:50 12/03/22 05:50 Labs: Abnormal Lab Results 12/03/22 12/03/22 12/02/22 05:50 05:50 05:19 WBC Hct RDW 16.9 H Immature Gran % (Auto) 2.9 H Neut % (Auto) Lymph % (Auto) Lymph # (Auto) Immature Gran # 0.25 H Absolute Neutrophils POC VBG pH POC VBG HCO3 POC VBG Total CO2 POC VBG Base Excess Sodium Carbon Dioxide BUN 26 H 25 H Glucose 152 H 196 H Calcium 7.1 L 8.1 L AST 37 H ALT 97 H Alkaline Phosphatase 118 H Total Protein 5.5 L Albumin 2.7 L Triglycerides Urine Appearance Urine Protein Urine Occult Blood Ur Leukocyte Esterase Urine RBC Urine WBC Urine Bacteria Urine Mucus 12/01/22 12/01/22 11/30/22 05:30 05:29 19:25 WBC Hct RDW 16.4 H Immature Gran % (Auto) 2.2 H Neut % (Auto) Lymph % (Auto) Lymph # (Auto) Immature Gran # 0.23 H Absolute Neutrophils POC VBG pH POC VBG HCO3 POC VBG Total CO2 POC VBG Base Excess Sodium Carbon Dioxide BUN 25 H Glucose 112 H Calcium 6.5 L AST ALT 47 H Alkaline Phosphatase Total Protein 5.1 L Albumin 2.6 L Triglycerides 222 H Urine Appearance Cloudy A Urine Protein 100 A Urine Occult Blood >=1.0 A Ur Leukocyte Esterase 500 A Urine RBC > 182 H Urine WBC 136 H Urine Bacteria Many A Urine Mucus Mod A 11/30/22 11/30/22 11/30/22 18:58 18:56 18:56 WBC 19.5 H Hct 45.1 H RDW 16.2 H Immature Gran % (Auto) 1.6 H Neut % (Auto) 86.6 H Lymph % (Auto) 6.8 L Lymph # (Auto) 1.33 L Immature Gran # 0.31 H Absolute Neutrophils 16.93 H POC VBG pH 7.27 L POC VBG HCO3 21.2 L POC VBG Total CO2 23.0 L POC VBG Base Excess -6.0 L Sodium 131 L Carbon Dioxide 21 L BUN 33 H Glucose 232 H Calcium 6.6 L AST ALT 70 H Alkaline Phosphatase 151 H Total Protein Albumin Triglycerides Urine Appearance Urine Protein Urine Occult Blood Ur Leukocyte Esterase Urine RBC Urine WBC Urine Bacteria Urine Mucus Meds: Medications Acetaminophen (Acetaminophen 325 Mg Tablet) 650 mg PO Q6HP PRN; Protocol PRN Reason: Per Pain Protocol/Fever > 101 Albuterol/Ipratropium (Ipratropium/Albuterol 3 Ml Ampul.Neb) 3 ml NEB Q4HP PRN PRN Reason: Shortness Of Breath Apixaban (Apixaban 5 Mg Tablet) 5 mg PO BID [facility] Last Admin: 12/03/22 09:05 Dose: 5 mg Baclofen (Baclofen 10 Mg Tablet) 10 mg PO Q8H [facility] Last Admin: 12/03/22 11:14 Dose: 10 mg Calcitriol (Calcitriol 0.25 Mcg Capsule) 0.25 mcg PO TuThSa@0900 [facility] Last Admin: 12/01/22 09:04 Dose: 0.25 mcg Calcium Carbonate/Glycine (Calcium (Oyster Shell) 500 Mg Tablet) 1,000 mg PO BID [facility] Last Admin: 12/03/22 09:05 Dose: 1,000 mg Dextrose (Dextrose 50% 50 Ml Vial) 0 ml IV UD PRN PRN Reason: Per Sliding Scale Diagnostic Test (Pha) (Accu-Chek 1 Each Strip) 1 each FS [facility] Last Admin: 12/03/22 11:15 Dose: 1 each Diphenhydramine HCl (Diphenhydramine 50 Mg/Ml Vial) 25 mg IV Q6HP PRN PRN Reason: Allergic Symptoms Last Admin: 12/01/22 23:33 Dose: 25 mg Docusate Sodium (Docusate Sodium 100 Mg Capsule) 100 mg PO BID [facility] Last Admin: 12/03/22 09:05 Dose: Not Given Duloxetine HCl (Duloxetine 30 Mg Capsule) 30 mg PO BID [facility] Last Admin: 12/03/22 09:06 Dose: 30 mg Famotidine (Famotidine 20 Mg Tablet) 20 mg PO BID [facility] Last Admin: 12/03/22 09:05 Dose: 20 mg Gabapentin (Gabapentin 300 Mg Capsule) 300 mg PO QID [facility] Last Admin: 12/03/22 14:26 Dose: 300 mg Glucose (Dextrose 31 Gm Oral.Susp) 15 gm PO PRN PRN PRN Reason: Hypoglycemia Potassium Chloride 40 meq/ (Dextrose) 520 mls @ 130 mls/hr IV UD PRN PRN Reason: Potassium < 3 Magnesium Sulfate (Magnesium Sulfate) 2 gm in 50 mls @ 50 mls/hr IV UD PRN PRN Reason: Magnesium </= 1.6 Insulin Human Lispro (Insulin Lispro 1 Unit/0.01 Ml Unit) 0 unit SQ [facility]; Protocol Last Admin: 12/03/22 11:15 Dose: 10 units Levothyroxine Sodium (Levothyroxine 100 Mcg Tablet) 200 mcg PO ACB [facility] Last Admin: 12/03/22 07:41 Dose: 200 mcg Linezolid (Linezolid 600 Mg Tablet) 600 mg PO Q12 [facility]; Protocol Stop: 12/03/22 21:01 Last Admin: 12/03/22 09:05 Dose: 600 mg Magnesium Oxide (Magnesium Oxide 400 Mg Tablet) 800 mg PO DAILY [facility] Last Admin: 12/03/22 09:05 Dose: 800 mg Ondansetron HCl (Ondansetron 4 Mg/2 Ml Vial) 4 mg IV Q4HP PRN PRN Reason: Nausea And Vomiting Last Admin: 12/02/22 04:07 Dose: 4 mg Polyethylene Glycol (Polyethylene Glycol 3350 17 Gm Packet) 17 gm PO DAILYP PRN PRN Reason: Constipation Potassium Chloride (Potassium Chloride 20 Meq Tablet) 40 meq PO UD PRN PRN Reason: Potssium is 3-3.5 Potassium Chloride (Potassium Chloride 20 Meq Tablet) 40 meq PO UD PRN PRN Reason: Potassium < 3 Prednisone (Prednisone 20 Mg Tablet) 20 mg PO [facility] Last Admin: 12/03/22 07:40 Dose: 20 mg Promethazine HCl (Promethazine 25 Mg/Ml Vial) 25 mg IV Q6HP PRN PRN Reason: Nausea And Vomiting Last Admin: 12/02/22 06:58 Dose: 25 mg Pyridostigmine [place] (Pyridostigmine 60 Mg Tablet) 60 mg PO Q6H [facility] Last Admin: 12/03/22 11:15 Dose: 60 mg Senna (Sennosides 1 Tablet) 2 tab PO DAILYP PRN PRN Reason: Constipation Sodium Chloride (0.9 % Sodium Chloride 10 Ml Syringe) 10 ml IV Q8 [facility] Last Admin: 12/03/22 14:26 Dose: 10 ml A/P Assessment and plan (1) Sepsis: Status: Acute (2) Myasthenia gravis: Status: Chronic (3) Hypothyroidism: Status: Chronic Qualifiers: Hypothyroidism type: congenital with diffuse goiter Qualified Code(s): E03.0 - Congenital hypothyroidism with diffuse goiter (4) Acute UTI: Status: Chronic (5) Diabetes mellitus type 2, uncontrolled: Status: Chronic Qualifiers: Coma presence: without coma Narrative A/P Narrative: Assessment and Plans: 1. UTI with severe sepsis: Inpatient med surg Urine culture grew E coli and enterococcus. Day 3 Rocephin and Zyvox. Will switch to Levaquin 500mg PO daily for 4 additional days starting tomorrow. d/c Martinez catheter. Clinically ready to be discharged. Awaiting pre-authorization from SNF to discharge. 2. T2DM: HgA1c 8.2 Hold oral hypoglycemics Insulin Lispro SSI AC HS Accu Check AC HS Hypoglycemia protocol Diabetic diet 3. Myasthenia Gravis: Prednisone 200mg PO daily Pyridostigmine 4. Hypothyroidism: Continue thyroid replacement therapy GI ppx: Pepcid DVT ppx: Eliquis Code status: Full Prognosis: Stable Disposition: inpatient med surg; SNF Time Spent With Patient Time: Total time spent is greater than 50% in coordination of care (as documented) at patient's floor/unit and/or counseling patient: Subsequent: Total time with patient: 35 - 49 minutes QUALITY VTE Deep Vein Thrombosis/Pulmonary Embolism Present on Admission: No
--- NOTE | 2022-12-03 15:44 | EKG ---
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
[2022-12-03] MEDS: ONDANSETRON 4 MG/2 ML VIAL IV PRN (20:30)
[2022-12-03] MEDS: PROMETHAZINE 25 MG/ML VIAL IV PRN (21:55)
[2022-12-03] MEDS ORDERED: INSULIN GLARGINE, HUMAN 1 UNIT/0.01 ML SQ ONE (22:25)
[2022-12-04] MEDS: BACLOFEN 10 MG TABLET PO SCH ×2 (01:14→11:14)
[2022-12-04] MEDS: PYRIDOSTIGMINE 60 MG TABLET PO SCH ×3 (01:14→11:14)
[2022-12-04] MEDS: ONDANSETRON 4 MG/2 ML VIAL IV PRN (04:03)
[2022-12-04] MEDS: 0.9 % SODIUM CHLORIDE 10 ML SYRINGE IV SCH (05:41)
[2022-12-04 07:22] LABS: Basophils # (Auto) 0.05 K/mcL (0.00-0.30); Basophils % (Auto) 0.6 % (0.0-2.0); Eosinophils # (Auto) 0.12 K/mcL (0.00-0.70); Eosinophils % (Auto) 1.4 % (0.0-7.0); Hemoglobin 11.9 g/dL (11.2-15.7); Lymphocytes # (Auto) 1.65 K/mcL (1.50-4.80); Lymphocytes % (Auto) 18.9 % (15.5-49.0); Mean Cell Volume 86.8 fL (80.0-100.0); Mean Corpuscular HGB Conc 31.3 g/dL (31.0-36.0); Mean Platelet Volume 9.6 fL (8.8-12.5); Monocytes # (Auto) 0.83 K/mcL (0.10-0.90); Monocytes % (Auto) 9.5 % (1.0-12.0); Neutrophils % (Auto) 66.7 % (38.0-78.0); Platelet Count 304 K/mcL (140-440); RBC 4.38 M/mcL (3.59-5.38); Red Cell Distribution Width 16.6 % (11.5-14.5); WBC 8.7 K/mcL (4.5-11.0)
[2022-12-04] MEDS: LEVOTHYROXINE 100 MCG TABLET PO SCH (07:36)
[2022-12-04] MEDS: INSULIN LISPRO 1 UNIT/0.01 ML UNIT SQ SCH ×2 (07:39→12:01)
[2022-12-04 07:57] LABS: ALT/SGPT 66 U/L (<40); AST/SGOT 19 U/L (<32); Albumin 2.8 gm/dL (3.2-5.2); Albumin/Globulin Ratio 1.2 (1.0-2.3); Alkaline Phosphatase 106 U/L (39-117); Bilirubin,Total < 0.2 mg/dL (0.1-1.0); Blood Urea Nitrogen 29 mg/dL (6-20); Carbon Dioxide 26 mmol/L (22-30); Chloride 101 mmol/L (96-108); Globulin 2.4 gm/dL (2.2-3.7); Glomerular Filtration Rate 61; Glucose 149 mg/dL (70-105)
[2022-12-04] MEDS: DOCUSATE SODIUM 100 MG CAPSULE PO SCH (08:53)
[2022-12-04] MEDS: DULoxetine 30 MG CAPSULE PO SCH (09:05)
[2022-12-04] MEDS: GABAPENTIN 300 MG CAPSULE PO SCH ×2 (09:05→12:02)
[2022-12-04] MEDS: MAGNESIUM OXIDE 400 MG TABLET PO SCH (09:05)
[2022-12-04] MEDS: APIXABAN 5 MG TABLET PO SCH (09:05)
[2022-12-04] MEDS: CALCIUM (OYSTER SHELL) 500 MG TABLET PO SCH (09:05)
[2022-12-04] MEDS: CALCITRIOL 0.25 MCG CAPSULE PO SCH (09:05)
[2022-12-04] MEDS: predniSONE 20 MG TABLET PO SCH (09:06)
[2022-12-04] MEDS: FAMOTIDINE 20 MG TABLET PO SCH (09:06)
--- NOTE | 2022-12-04 10:48 | Discharge Summary ---
Discharge Provider Provider IMPORTANT FOLLOW-UP INFORMATION FOR PCP: Patient information: Note initiated : 12/04/22 at 10:44 am Service Date, if different from initiated Date: [] Patient: Dayanna Guo a 61 y/o F admitted on 11/30/22 for nausea. Chief Complaint: [] Date of admission: 11/30/22 22:28 Discharge date: 12/04/22 Primary care physician: Mookie Paiz MD Attending physician on admission: Smith Vu Consults: 11/30/22 Consult to Physician [CONS] Stat Comment: Consulting Provider: Smith Vu Reason For Exam: Physician to Consult Attending physician on discharge: Chi Lilly Pui COURSE Hospital Course Hospital course: Ms. Guo is a 61 year old F Presents today with confusion weakness dysuria. She was recently admitted here on November 12 and discharged on November 20 for UTI sepsis with E. coli. She was [facility] to [facility] facility. She presents now for similar symptoms and work-up in the ED positive for UTI sepsis. This is most likely a hygiene issue given her morbid obesity and immobility. She has had some nausea and has vomited twice but that has resolved and she does not have any of her bowel obstruction symptoms that she has had in the past including no abdominal pain. Patient denies fever chills but complains of headache dizziness weakness dysuria and foul smelling urine. Patient says she has been incontinent for the past few weeks at least. And she was found to be incontinent today. Patient was mildly tachycardic in the ED. She had a leukocytosis of 19,000. She was hypokalemic at 6.6. Mild hyponatremia at 131. BUN 33 creatinine 1.1. Urine was consistent with signs of infection. 12/01 Patient feels dizzy at times. Patient states she is slept okay, not great but better than she has before in the hospital. Patient states she occasionally sees cobwebs when she closes her eyes, same complaints when she was here last time. Occasional headache. Leukocytosis improving. Home meds clarified and restarting. Calcium low and will replete. Hypertriglyceridemia. 12/02 She complains of poor sleep. Nausea but no vomiting. Sodium improved. Calcium improving with supplementation. Monitor for bowel obstruction as is common with her. Good ostomy output at this time. 12/03: Afebrile overnight. WBC 8.6. Urine culture grew E coli and enterococcus. Day 3 Rocephin and Zyvox. Will switch to Levaquin 500mg PO daily for 4 additional days starting tomorrow. d/c Martinez catheter. Clinically ready to be discharged. Awaiting pre-authorization from SNF to discharge. 12/04: Discharged to SNF. Discharge diagnosis: UTI Time Spent with Patient Time attestation: Total time spent providing and/or coordinating discharge services: Time spent: Less than 30 minutes EXAM Constitutional Vitals: Temp Pulse Resp BP Pulse Ox O2 Del Method 36.3 C 85 20 130/73 96 Room Air 12/04/22 08:00 12/04/22 08:00 12/04/22 08:00 12/04/22 08:00 12/04/22 08:00 12/04/22 08:00 General appearance: cooperative and no acute distress Head Head exam: Present atraumatic and normocephalic Eye Eye exam: Present EOMI and PERRL ENT ENT exam: Present mucous membranes moist, normal exam and normal external ear exam Neck Neck exam: Present normal inspection; Absent lymphadenopathy, tenderness or thyromegaly Respiratory Respiratory exam: Absent accessory muscle use, respiratory distress or wheezes Cardiovascular Cardiovascular exam: Present normal rate and rhythm; Absent JVD GI/Abdominal GI/Abdominal exam: Present normal bowel sounds and soft; Absent organomegaly or tenderness Extremities Exam Extremities exam: Present full ROM, normal capillary refill and normal inspection; Absent tenderness Neurological Exam Neurological exam: Present alert, CN II-XII intact and oriented X3; Absent motor sensory deficit Psychiatric Psychiatric exam: Present normal affect and normal mood; Absent anxious or depressed Skin Skin exam: Present dry and intact Discharge Data Data Completed and Pending Labs on day of discharge: Labs from last 24 hours 12/04/22 12/04/22 06:13 06:13 WBC 8.7 RBC 4.38 Hgb 11.9 Hct 38.0 MCV 86.8 MCH 27.2 MCHC 31.3 RDW 16.6 H Plt Count 304 MPV 9.6 Immature Gran % (Auto) 2.9 H Neut % (Auto) 66.7 Lymph % (Auto) 18.9 [place] % (Auto) 9.5 Eos % (Auto) 1.4 Baso % (Auto) 0.6 Lymph # (Auto) 1.65 [place] # (Auto) 0.83 Eos # (Auto) 0.12 Baso # (Auto) 0.05 Immature Gran # 0.25 H Absolute Neutrophils 5.82 Sodium 136 Potassium 3.5 Chloride 101 Carbon Dioxide 26 Anion Gap 9.0 BUN 29 H Creatinine 1.0 GFR Calculation 61 Glucose 149 H Calcium 7.0 L Total Bilirubin < 0.2 AST 19 ALT 66 H Alkaline Phosphatase 106 Total Protein 5.2 L Albumin 2.8 L Globulin 2.4 Albumin/Globulin Ratio 1.2 Preliminary micro results at discharge 11/30/22 19:04 Blood Culture - Preliminary Blood 11/30/22 18:56 Blood Culture - Preliminary Blood Discharge Plan Patient/Caregiver Discharge Instructions Activity: increase activity as tolerated Diet: Consistent Carbohydrate Instructions: Urinary Tract Infection in Women (ED), Sepsis (GEN) Prescriptions: New levofloxacin 500 mg tablet 500 mg PO Q24H Qty: 4 0RF Continued Eliquis 5 mg tablet 5 mg PO BID Qty: 60 5RF (DME) insulin syringe-needle U-100 1 mL 32 gauge x 5/16" syringe See Rx Instructions .Route Qty: 100 0RF Rx Instructions: Use with Lantus BID (DME) pen needle, diabetic [BD Ultra-Fine Concepcion Pen Needle] 32 gauge x 5/32" needle See Rx Instructions .Route Qty: 200 5RF Rx Instructions: Use up to 6 injections per day pyridostigmine bromide 60 mg tablet 60 mg PO QID Qty: 120 5RF gabapentin 300 mg capsule 300 mg PO QID 30 Days Qty: 360 1RF duloxetine 30 mg capsule,delayed release(DR/EC) 30 mg PO BID Qty: 180 1RF insulin lispro [Humalog KwikPen Insulin] 100 unit/mL insulin pen 1 sliding scale dose subcut TID Qty: 45 1RF Rx Instructions: max per day 50 units calcitriol 0.25 mcg capsule See Rx Instructions .ROUTE .COMPLEX Qty: 15 6RF Dose Instruction: TAKE ONE CAPSULE BY MOUTH ON SATURDAY, SATURDAY AND SATURDAY FOR SUPPLEMENT Rx Instructions: TAKE ONE CAPSULE BY MOUTH ON SATURDAY, SATURDAY AND SATURDAY FOR SUPPLEMENT (DME) Contour Next Test Strips Strip See Rx Instructions .ROUTE .COMPLEX Qty: 300 3RF Dose Instruction: FOR DIABETES; USE 4 TIMES DAILY Rx Instructions: FOR DIABETES; USE 4 TIMES DAILY levothyroxine 200 mcg tablet 200 mcg PO QDAY Qty: 90 1RF pantoprazole 20 mg tablet,delayed release (DR/EC) 20 mg PO QDAY famotidine 20 mg tablet 20 mg PO BID prednisone 20 mg tablet 20 mg PO QAMCC Qty: 90 0RF baclofen 10 mg tablet 10 mg PO TID dulaglutide 1.5 mg/0.5 mL pen injector 1.5 mg subcut QWEEK Qty: 2 2RF calcium 1,000 mg PO BID magnesium 500 mg Tablet 1,000 mg PO QDAY insulin glargine [Lantus Solostar U-100 Insulin] 100 unit/mL (3 mL) insulin pen 23 unit subcut QPM Follow Up Plan Follow up with: Mookie Paiz MD [Primary Care Provider] - Patient Disposition: Xfer SNF Prognosis: Fair Rehab Potential: Good I certify that the patient requires SNF services: Yes Overall status at discharge: patient is back to baseline Discharge Orders: Discharge Order (Routine); Ordered 12/04/22 Ordered By: Jt JIMENEZ VTE Deep Vein Thrombosis/Pulmonary Embolism Present on Admission: No
[2022-12-04] MEDS ORDERED: LEVOFLOXACIN 500 MG TABLET PO ONE (12:18)
[2022-12-04] MEDS ORDERED: INSULIN GLARGINE, HUMAN 1 UNIT/0.01 ML SQ SCH (21:00)
== END 2022-12-04 13:20 | DRG 871 ==
LOC: ED 18:02 → MEDSUR 22:28
PROVIDERS: ADMIT Internal Medicine; ATTEND Internal Medicine